=== PATIENT | male | born 1970 | race Caucasian/White ===

== ENCOUNTER 2016-09-03 13:42 | Inpatient (IN) | payer MEDICARE, OTHER ==
[2016-09-03] MEDS ORDERED: IPRATROPIUM-ALBUTEROL 3 ML NEB INHALATION STA (14:01)
--- NOTE | 2016-09-03 14:02 | ED ---
General Adult HPI - General Chief complaint: Chest Pain Stated complaint: SOB/Chest Pain Time Seen by Provider: 09/03/16 14:00 Source: patient, RN notes reviewed, old records reviewed Mode of arrival: wheelchair Limitations: no limitations - History of Present Illness Initial comments: This is a 46-year-old male ER for evaluation of chest pain source of breath. Patient has a significant medical history including asthma CHF, high blood pressure, high cholesterol, no recent cardiac evaluation. he patient coming in with increased shortness of breath no fever increased cough and congestion. Patient is mild chest pain as well. No nausea vomiting or abdominal pain. No recent travel history or sick contacts. - Related Data Home Medications Medication Instructions Recorded Confirmed Omeprazole [PriLOSEC] 20 mg PO AC-SUPPER 08/10/14 09/03/16 oxyCODONE HCL/ACETAMINOPHEN 1 tab PO Q6H PRN 05/14/15 09/03/16 [Percocet 10-325 mg] Budesonide/Formoterol Fumarate 2 puff INHALATION RT-BID 05/18/15 09/03/16 [Symbicort 160-4.5 Mcg Inhaler] Aspirin 81 mg PO DAILY 10/21/15 09/03/16 Ergocalciferol [Vitamin D2 50,000 unit PO FR 10/21/15 09/03/16 (DRISDOL)] Furosemide [Lasix] 160 mg PO BID 10/21/15 09/03/16 Ipratropium [place] [Atrovent Hfa] 2 puff INHALATION RT-QID 10/21/15 09/03/16 Ipratropium-Albuterol Nebulize 3 ml INHALATION RT-TID 10/21/15 09/03/16 [Duoneb 0.5 mg-3 mg/3 ml Soln] Metoprolol Tartrate [Lopressor] 100 mg PO BID 10/21/15 09/03/16 Polyethylene Glycol 3350 [Miralax] 8.5 gm PO DAILY PRN 10/21/15 09/03/16 Albuterol Sulfate [Proair Hfa] 2 puff INHALATION RT-Q6H 01/18/16 09/03/16 DULoxetine HCL [Cymbalta] 60 mg PO DAILY 01/18/16 09/03/16 INSULIN LISPRO (HumaLOG) [humaLOG] 35 unit SQ TID-W/MEALS 01/18/16 09/03/16 Insulin Glargine,Hum.rec.anlog 20 units SQ QAM 01/18/16 09/03/16 [[place]oujeo Solostar] Insulin Glargine,Hum.rec.anlog 100 units SQ HS 01/18/16 09/03/16 [Toujeo Solostar] [place]-3 Fatty Acids [[place]-3] 1,000 mg PO BID 01/18/16 09/03/16 diphenhydrAMINE [Benadryl] 50 mg PO HS PRN 01/18/16 09/03/16 Sacubitril/Valsartan [Entresto 49 1 tab PO BID 09/03/16 09/03/16 mg-51 mg Tablet] Previous Rx's Medication Instructions Recorded Atorvastatin [Lipitor] 80 mg PO HS #30 tab 05/17/15 Docusate [Colace] 100 mg PO TID #90 cap 01/23/16 Sennosides-Docusate Sodium 2 each PO HS #30 tab 01/23/16 [Senokot-S] Allergies Allergy/AdvReac Type Severity Reaction Status Date / Time gemfibrozil [From Lopid] Allergy Rash/Hives Verified 09/03/16 14:57 Review of Systems ROS Statement: Those systems with pertinent positive or pertinent negative responses have been documented in the HPI. ROS Other: All systems not noted in ROS Statement are negative. Past Medical History Past Medical History: Asthma, Coronary Artery Disease (CAD), Heart Failure, COPD , Diabetes Mellitus, GERD/Reflux, Hyperlipidemia, Hypertension, Sleep Apnea/CPAP /BIPAP Additional Past Medical History / Comment(s): Chronic back pain and neck pain, cardiomyopathy History of Any Multi-Drug Resistant Organisms: None Reported Past Surgical History: Adenoidectomy, AICD, Back Surgery, Cholecystectomy, Heart Catheterization, Tonsillectomy Additional Past Surgical History / Comment(s): EGD/colonoscopy- which was normal per pt., lumbar back surgery, laparoscopic cholecystectomy. 09-02-14 aicd implanted Past Anesthesia/Blood Transfusion Reactions: Motion Sickness Additional Past Anesthesia/Blood Transfusion Reaction / Comment(s): Pt states he did recieve a blood transfusion after his back surgery and had no reaction. Type of Cardiac Device: AICD Device Placement Date:: 2-5-15 Past Psychological History: ADD/ADHD Additional Psychological History / Comment(s): Pt lives with in a home. Pt is very independent. Smoking Status: Current some day smoker Past Alcohol Use History: None Reported Additional Past Alcohol Use History / Comment(s): Pt states that he quit drinking heavy 15 yrs ago. He states once in a great while he may have one drink. Past Drug Use History: Marijuana Additional Drug Use History / Comment(s): daily use - Past Family History Father Additional Family Medical History / Comment(s): Pt has not kept in close contact with his father for many yrs. Father was an alcoholic and pt believes he has from cirrhosis of the liver. Mother Additional Family Medical History / Comment(s): Mother is an alcoholic and in "poor health" General Exam Limitations: no limitations General appearance: alert, in no apparent distress, anxious Head exam: Present: atraumatic, normocephalic, normal inspection Eye exam: Present: normal appearance, PERRL, EOMI. Absent: scleral icterus, conjunctival injection, periorbital swelling ENT exam: Present: normal exam, mucous membranes moist Neck exam: Present: normal inspection. Absent: tenderness, meningismus, lymphadenopathy Respiratory exam: Present: normal lung sounds bilaterally. Absent: respiratory distress, wheezes, rales, rhonchi, stridor Cardiovascular Exam: Present: regular rate, normal rhythm, normal heart sounds. Absent: systolic murmur, diastolic murmur, rubs, gallop, clicks GI/Abdominal exam: Present: soft, normal bowel sounds. Absent: distended, tenderness, guarding, rebound, rigid Extremities exam: Present: normal inspection, full ROM, normal capillary refill. Absent: tenderness, pedal edema, joint swelling, calf tenderness Back exam: Present: normal inspection Neurological exam: Present: alert, oriented X3, CN II-XII intact Psychiatric exam: Present: normal affect, normal mood Skin exam: Present: warm, dry, intact, normal color. Absent: rash Course Vital Signs 09/03/16 09/03/16 09/03/16 13:46 14:28 14:36 Temperature 98.2 F Pulse Rate 109 H 103 H 102 H Respiratory 20 Rate Blood Pressure 129/84 O2 Sat by Pulse 94 L Oximetry - Reevaluation(s) Reevaluation #1: 09/03/16 15:54 Patient saw remains with chest pain Medical Decision Making - Medical Decision Making 46 male here for evaluation of chest pain shortness of breath, patient is in CHF with elevated troponin, patient has continued chest pain, EKG is negative for acute ST elevation, patient will be admitted for can at the coagulation, trending of troponin cardiac evaluation. - Lab Data Result diagrams: 09/03/16 14:10 09/03/16 14:10 Lab Results 09/03/16 09/03/16 09/03/16 Range/Units 14:10 14:10 14:10 WBC 15.0 H (3.8-10.6) k/uL RBC 5.02 (4.30-5.90) m/uL Hgb 14.5 (13.0-17.5) gm/dL Hct 44.8 (39.0-53.0) % MCV 89.1 (80.0-100.0) fL MCH 28.9 (25.0-35.0) pg MCHC 32.4 (31.0-37.0) g/dL RDW 12.2 (11.5-15.5) % Plt Count 255 (150-450) k/uL Neutrophils % 84 % Lymphocytes % 10 % Monocytes % 4 % Eosinophils % 1 % Basophils % 1 % Neutrophils # 12.6 H (1.3-7.7) k/uL Lymphocytes # 1.4 (1.0-4.8) k/uL Monocytes # 0.6 (0-1.0) k/uL Eosinophils # 0.2 (0-0.7) k/uL Basophils # 0.1 (0-0.2) k/uL PT (9.0-12.0) sec INR (<1.1) APTT (22.0-30.0) sec D-Dimer (<0.60) mg/L FEU Sodium 139 (137-145) mmol/L Potassium 4.7 (3.5-5.1) mmol/L Chloride 104 (98-107) mmol/L Carbon Dioxide 22 (22-30) mmol/L Anion Gap 13 mmol/L BUN 15 (9-20) mg/dL Creatinine 0.78 (0.66-1.25) mg/dL Est GFR (MDRD) Af Amer >60 (>60 ml/min/1.73 sqM) Est GFR (MDRD) Non-Af >60 (>60 ml/min/1.73 sqM) Glucose 236 H (74-99) mg/dL Calcium 9.3 (8.4-10.2) mg/dL Magnesium 1.9 (1.6-2.3) mg/dL Total Bilirubin 0.8 (0.2-1.3) mg/dL AST 32 (17-59) U/L ALT 48 (21-72) U/L Alkaline Phosphatase 98 (38-126) U/L Total Creatine Kinase 95 (55-170) U/L CK-MB (CK-2) 1.5 (0.0-2.4) ng/mL CK-MB (CK-2) Rel Index 1.6 Troponin I 0.061 H* (0.000-0.034) ng/mL NT-Pro-B Natriuret Pep pg/mL Total Protein 6.9 (6.3-8.2) g/dL Albumin 4.0 (3.5-5.0) g/dL Lipase 32 (23-300) U/L 09/03/16 09/03/16 Range/Units 14:10 14:10 WBC (3.8-10.6) k/uL RBC (4.30-5.90) m/uL Hgb (13.0-17.5) gm/dL Hct (39.0-53.0) % MCV (80.0-100.0) fL MCH (25.0-35.0) pg MCHC (31.0-37.0) g/dL RDW (11.5-15.5) % Plt Count (150-450) k/uL Neutrophils % % Lymphocytes % % Monocytes % % Eosinophils % % Basophils % % Neutrophils # (1.3-7.7) k/uL Lymphocytes # (1.0-4.8) k/uL Monocytes # (0-1.0) k/uL Eosinophils # (0-0.7) k/uL Basophils # (0-0.2) k/uL PT 10.2 (9.0-12.0) sec INR 1.0 (<1.1) APTT 23.4 (22.0-30.0) sec D-Dimer 1.06 H (<0.60) mg/L FEU Sodium (137-145) mmol/L Potassium (3.5-5.1) mmol/L Chloride (98-107) mmol/L Carbon Dioxide (22-30) mmol/L Anion Gap mmol/L BUN (9-20) mg/dL Creatinine (0.66-1.25) mg/dL Est GFR (MDRD) Af Amer (>60 ml/min/1.73 sqM) Est GFR (MDRD) Non-Af (>60 ml/min/1.73 sqM) Glucose (74-99) mg/dL Calcium (8.4-10.2) mg/dL Magnesium (1.6-2.3) mg/dL Total Bilirubin (0.2-1.3) mg/dL AST (17-59) U/L ALT (21-72) U/L Alkaline Phosphatase (38-126) U/L Total Creatine Kinase (55-170) U/L CK-MB (CK-2) (0.0-2.4) ng/mL CK-MB (CK-2) Rel Index Troponin I (0.000-0.034) ng/mL NT-Pro-B Natriuret Pep 1150 pg/mL Total Protein (6.3-8.2) g/dL Albumin (3.5-5.0) g/dL Lipase (23-300) U/L - Radiology Data Radiology results: report reviewed (Chest x-ray shows CHF, CT negative for PE), image reviewed Critical Care Time Critical Care Time: Yes Total Critical Care Time: 31 Disposition Clinical Impression: Asthma exacerbation in COPD, Acute non-ST segment elevation myocardial infarction (STEMI) following previous myocardial infarction, Elevated troponin, Systolic CHF, acute on chronic Disposition: ADMITTED IP TO THIS HOSP Condition: Serious Referrals: Hunter Romano MD [Primary Care Provider] - 1-2 days
[2016-09-03 14:54] LABS: Basophils # (A) 0.1 k/uL (0-0.2); Basophils % (A) 1 %; CH 29.4; CHCM 33.1; Eosinophils # (A) 0.2 k/uL (0-0.7); Eosinophils % (A) 1 %; HCT 44.8 % (39.0-53.0); HDW 2.58; HGB 14.5 gm/dL (13.0-17.5); Luc # (Auto) 0.13; Luc % (Auto) 1; Lymphocytes # (A) 1.4 k/uL (1.0-4.8); Lymphocytes % (A) 10 %; MCH 28.9 pg (25.0-35.0); MCHC 32.4 g/dL (31.0-37.0); MCV 89.1 fL (80.0-100.0); Mean Platelet Volume 7.9; Monocytes # (A) 0.6 k/uL (0-1.0); Monocytes % (A) 4 %; Neutrophils # (A) 12.6 k/uL (1.3-7.7); Neutrophils % (A) 84 %; RBC 5.02 m/uL (4.30-5.90); RDW 12.2 % (11.5-15.5); WBC (Perox) 14.88
--- NOTE | 2016-09-03 14:56 | XR ---
EXAMINATION TYPE: XR chest 2V DATE OF EXAM: 09/03/2016 2:52 PM COMPARISON: 10/16/1715 HISTORY: Post pacemaker placement FINDINGS: The lungs are clear and there is no pneumothorax, pleural effusion, or focal pneumonia. The heart is enlarged and there is a coarsened interstitium and pleural-based thickening which is sta ble. Single lead cardiac device noted with the lead overlying the region of the right ventricle. IMPRESSION: 1. Cardiac device with no evidence of pneumothorax. 2. Correlate for COPD and chronic interstitial lung disease.
[2016-09-03 15:01] LABS: ALT 48 U/L (21-72); AST 32 U/L (17-59); Alkaline Phosphatase 98 U/L (38-126); Anion Gap 13 mmol/L; Blood Urea Nitrogen 15 mg/dL (9-20); Calcium 9.3 mg/dL (8.4-10.2); Carbon Dioxide 22 mmol/L (22-30); Chloride 104 mmol/L (98-107); Glucose 236 mg/dL (74-99); Magnesium 1.9 mg/dL (1.6-2.3); Non-African American GFR(MDRD) >60 (>60 ml/min/1.73 sqM); Partial Thromboplastin Time 23.4 sec (22.0-30.0); Potassium 4.7 mmol/L (3.5-5.1); Prothrombin Time 10.2 sec (9.0-12.0); Sodium 139 mmol/L (137-145); Total Bilirubin 0.8 mg/dL (0.2-1.3); Total Protein 6.9 g/dL (6.3-8.2)
[2016-09-03 15:21] LABS: Creatine Kinase MB 1.5 ng/mL (0.0-2.4)
[2016-09-03 15:24] LABS: Troponin I 0.061 ng/mL (0.000-0.034)
[2016-09-03] MEDS ORDERED: RX INFO: IV CONTRAST WAS GIVEN 1 EACH MISC MISCELLANE PRN (15:29)
[2016-09-03] MEDS ORDERED: ASPIRIN 81 MG CHEW PO STA (15:50)
[2016-09-03] MEDS ORDERED: MORPHINE SULFATE 4 MG/ML SYRINGE IV PRN (15:50)
[2016-09-03] MEDS ORDERED: NITROGLYCERIN SL TABS 0.4 MG TAB SUBLINGUAL PRN (15:50)
[2016-09-03] MEDS ORDERED: HEPARIN SODIUM,PORCINE 5,000 UNIT/ML 1 ML VIAL IV ONE (15:50)
[2016-09-03] MEDS ORDERED: HEPARIN SODIUM,PORCINE/D5W PMX 25,000 UNIT in DEXTROSE/WATER 1 500ML.BAG IV SCH (16:00)
--- NOTE | 2016-09-03 16:37 | CT ---
EXAMINATION TYPE: CT angio chest DATE OF EXAM: 09/03/2016 4:24 PM COMPARISON: CTA chest May 13, 2015 HISTORY: Shortness of breath and chest pain. CT DLP: 629.00 mGycm. Automated Exposure Control for Dose Reduction was Utilized. CONTRAST: CTA scan of the thorax is performed with IV Contrast, patient injected with 75 mL of Omnipaque 350, p ulmonary embolism protocol. MIP Images are created on CT scanner and reviewed. FINDINGS: LUNGS: There is persistent small right pleural effusion slightly larger versus prior exam. There is s table tiny left pleural effusion. AP diameter elongation of the trachea is consistent with underlying emphysematous change. Mild emphysematous change is present. Some areas of groundglass opacity throug hout right lung may reflect focal edema and/or infiltrates. No suspicious parenchymal nodule or mass is present bilaterally. No pneumothorax is seen bilaterally MEDIASTINUM: There is satisfactory enhancement of the pulmonary artery and its branches, there is no CT evidence for pulmonary embolism. There is abnormal prevascular lymph node redemonstrated measurin g 1.6 x 1.2 cm on current study image 48 felt stable from prior. Abnormal subcarinal lymph node is fe lt stable measuring 2.4 x 1.5 cm. Stable prominent right hilar lymph node is redemonstrated.. No si gnificant effusion is seen. Heart size is upper limits of normal with single lead pacemaker/AICD rede monstrated. There is moderate left atrial dilatation redemonstrated. There is moderate to severe left ventricular dilatation redemonstrated. OTHER: New vague areas of low-attenuation in the spleen are identified of uncertain etiology. These are new from CT abdomen pelvis December 2015. Vague bilateral renal lesions that exam were present. IMPRESSION: 1. No CT evidence for pulmonary embolism. 2. Persistent small bilateral pleural effusions. Persistent left atrial ventricular dilatation. Consi omid chronic CHF exacerbation. Mild underlying emphysematous change is felt present. 3. New hypodense splenic lesions raise concern for infarct or ischemic change given liver and renal f indings on prior studies.
[2016-09-03 17:09] LABS: Glucose,Whole Blood 229 mg/dL (75-99)
[2016-09-03] MEDS ORDERED: DOCUSATE 100 MG CAP PO PRN (17:42)
[2016-09-03] MEDS ORDERED: POLYETHYLENE GLYCOL 3350 17 GM POWD.PACK PO PRN (17:42)
[2016-09-03] MEDS ORDERED: IPRATROPIUM-ALBUTEROL 3 ML NEB INHALATION PRN (18:02)
[2016-09-03] MEDS: SYMBICORT 160-4.5 MCG INHALER INHALATION SCH (19:59)
[2016-09-03] MEDS: IPRATROPIUM-ALBUTEROL 3 ML NEB INHALATION SCH (19:59)
[2016-09-03] MEDS: SACUBITRIL/VALSARTAN 49 MG-51 MG TABLET PO SCH (20:20)
[2016-09-03] MEDS: HYDROmorphone 1 MG/ML 1 ML SYRINGE IVP PRN (20:21)
[2016-09-03] MEDS: METOPROLOL TARTRATE 50 MG TAB PO SCH (20:21)
[2016-09-03] MEDS: FUROSEMIDE 10 MG/ML 10 ML VIAL IV SCH (20:21)
[2016-09-03] MEDS: SENNOSIDES-DOCUSATE SODIUM 1 EACH TAB PO SCH (20:30)
[2016-09-03] MEDS ORDERED: FUROSEMIDE 80 MG TAB PO SCH (21:00)
[2016-09-03] MEDS ORDERED: NON-FORMULARY DRUG (Omega-3 Fatty Acids [Omega-3] 1,000 MG) PO SCH (21:00)
[2016-09-03 21:04] LABS: Glucose,Whole Blood 258 mg/dL (75-99)
[2016-09-03] MEDS: INSULIN LISPRO (humaLOG) 300 UNIT/3 ML VIAL SQ SCH (21:20)
[2016-09-03] MEDS: INSULIN GLARGINE 100 UNIT/ML 10 ML VIAL SQ SCH (21:20)
[2016-09-03] MEDS: ALPRAZolam 0.25 MG TAB PO PRN (21:21)
[2016-09-03] MEDS: HEPARIN SODIUM,PORCINE 5,000 UNIT/ML 1 ML VIAL IV PRN (22:08)
[2016-09-03 22:14] LABS: Creatine Kinase MB 1.4 ng/mL (0.0-2.4)
[2016-09-03 22:17] LABS: Troponin I 0.066 ng/mL (0.000-0.034)
[2016-09-03 23:02] LABS: Hemoglobin A1C 9.9 % (4.2-6.1)
--- NOTE | 2016-09-03 23:09 | HP ---
DATE OF ADMISSION: CHIEF COMPLAINT: Chest pain and shortness of breath. HISTORY OF PRESENT ILLNESS: Mr. Ezequiel Haynes is a 46-year-old with a known history of hypertension, diabetes, type 2, insulin-dependent, CHF, unknown ejection fraction, hyperlipidemia and morbid obesity. He came to the hospital with complaints of chest pain, mainly in the left upper chest; pressure-like sensation. No associated radiation. Patient does have associated shortness of breath along with pain. There are no aggravating or relieving factors. Patient apparently had this chest pain today morning, and patient had been having constant pain for more than 4 hours. Patient came to the hospital for further evaluation. Patient denied any history of angioplasty stent placement in prior history. Patient does have a history of prior heart catheterization and AICD placement. Patient otherwise denied any complaints of fever or chills. No nausea, vomiting, abdominal pain. No recent illnesses or sick contacts at home. No recent travel. REVIEW OF SYSTEMS: CONSTITUTIONAL: No fever. No chills. RESPIRATORY: No cough or sputum production. Patient does have shortness of breath. CARDIOVASCULAR: Patient does have chest tightness and shortness of breath. No worsening leg swelling. ABDOMEN: No nausea, vomiting or abdominal pain. No diarrhea or constipation. GENITOURINARY: No dysuria or hematuria. ENDOCRINE: Negative. PSYCHIATRIC: Negative. SKIN: Negative. All of 14-point review of systems negative except as above. Past medical history includes: 1. Asthma. 2. Coronary artery disease. 3. CHF; ejection fraction unknown. 4. COPD, not on home oxygen. 5. Diabetes, type 2, insulin-dependent. 6. GERD. 7. Hyperlipidemia. 8. Hypertension. 9. Obstructive sleep apnea. 10. Morbid obesity. 11. Chronic back pain and neck pain. 12. Cardiomyopathy, status post AICD placement. PAST SURGICAL HISTORY: 1. Adenoidectomy. 2. AICD placement. 3. Back surgery. 4. Cholecystectomy. 5. Cardiac catheterization. 6. Tonsillectomy. 7. EGD. 8. Colonoscopy. 9. Laparoscopic cholecystectomy. PSYCHOSOCIAL HISTORY: ADD/ADHD SOCIAL HISTORY: Patient lives with his at home. Very independent. Currently he is a someday smoker; smokes about 5 to 6 cigarettes in a month. Patient quit drinking 15 years ago. Patient was a heavy drinker previously. Patient does use marijuana daily. FAMILY HISTORY: Father was alcoholic. He from liver cirrhosis. Mother is an alcoholic and is in poor health ( ) HOME MEDICATIONS: 1. Omeprazole. 2. Trion 10. 3. Symbicort. 4. Aspirin. 5. Lasix. 6. Ipratropium bromide. 7. DuoNeb. 8. Metoprolol tartrate. 9. Polyethylene glycol. ( ) 10. Cymbalta. 11. Insulin glargine and insulin Lispro. 12. [place]-3 fatty acids. 13. Benadryl. 14. Sacubitril/Valsartan - Entresto. 15. Lipitor. 16. Colace. 17. Senokot-S. PHYSICAL EXAMINATION: A 46-year-old male lying in the bed. Awake, alert, oriented x3. Appears to be in no distress. VITALS: Blood pressure is 127/81, pulse 107, respirations 16, temperature afebrile, pulse ox 95% on 2 L. nasal cannula. HEENT: Atraumatic, normocephalic. Neck is supple. No JVD. CVS EXAM: S1, S2 heard. No murmurs. No gallop. LUNGS: Bilateral diminished air entry. No wheezing. Non-labored breathing. ABDOMEN: Soft, nontender. Bowel sounds present. Obese. CREDIT MANAGER: Awake, alert, oriented x3. No focal neurologic deficits. EXTREMITIES: No edema. Pulses palpable bilaterally. No clubbing. No cyanosis. PSYCHIATRIC: Cooperative. LABORATORY DATA: WBC 15.0, hemoglobin 14.5, platelets 255. INR 1.0. D-dimer is 1.06. Sodium 139, potassium 4.7, chloride 104. Bicarb is 22. BUN 15, creatinine 0.78. Liver enzymes within normal limits. NT-proBNP is 1150. Troponin 0.061. Blood sugar is uncontrolled; blood sugar was 236 on admission. Chest x-ray: Cardiac device with no evidence of pneumothorax. Correlation for COPD and chronic interstitial lung changes. EKG showed sinus tachycardia. CT chest shows no evidence of PE; persistent small bilateral pleural effusions; persistent left atrial and ventricular dilatation. Consider chronic CHF exacerbation. Mild underlying emphysematous changes seem to be present. New hypodense splenic lesions raise concern for infarct or ischemic changes, given liver and renal findings on prior studies. IMPRESSION: 1. Chest pain with elevated troponin level; possible cyv-LO-sngrdamu myocardial infarction. Patient will be continued on heparin drip. 2. Acute on chronic congestive heart failure with systolic dysfunction. 3. Chronic obstructive pulmonary disease exacerbation. 4. Leukocytosis. 5. Elevated D-dimer. No evidence of pulmonary embolism on CT chest. 6. Hyperglycemia with uncontrolled diabetes, type 2. Will check hemoglobin A1C. 7. History of coronary artery disease. 8. Cardiomyopathy, status post automatic implantable cardioverter defibrillator placement. 9. 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 10. Obstructive sleep apnea, on CPAP at home. 11. Hypertension. 12. Hyperlipidemia. 13. Gastroesophageal reflux disease. 14. Nicotine addiction; currently trying to quit smoking. 15. Marijuana use on a daily basis. 16. Deep venous thrombosis prophylaxis. Patient is already on heparin drip. DISCUSSION AND PLAN: Patient will be continued on heparin drip and continue with IV diuresis with Lasix 80 mg b.i.d. Continue with the home medications and insulin dosing. Cardiology has been consulted. Will continue telemetry monitoring and serial EKGs and troponins. Further recommendations based on clinical course. Prognosis guarded.
[2016-09-04] MEDS: HYDROmorphone 1 MG/ML 1 ML SYRINGE IVP PRN ×5 (00:10→21:16)
[2016-09-04 01:56] LABS: Appearance,Urine Clear (Clear); Bilirubin,Urine Negative (Negative); Glucose,Urine (UA) 3+ (Negative); Ketones,Urine Negative (Negative); Leukocyte Esterase,Urine Negative (Negative); Nitrite,Urine Negative (Negative); Protein,Urine Negative (Negative); UA Billing (MACRO vs. MICRO) CHEM; Urobilinogen,Urine <2.0 mg/dL (<2.0)
[2016-09-04 02:02] LABS: Creatine Kinase MB 1.2 ng/mL (0.0-2.4)
[2016-09-04 02:03] LABS: Troponin I 0.068 ng/mL (0.000-0.034)
[2016-09-04] MEDS: ALPRAZolam 0.25 MG TAB PO PRN ×3 (05:23→21:16)
[2016-09-04 05:52] LABS: Basophils # (A) 0.1 k/uL (0-0.2); Basophils % (A) 1 %; CH 29.2; CHCM 32.4; Eosinophils # (A) 0.4 k/uL (0-0.7); Eosinophils % (A) 4 %; HDW 2.51; HGB 14.3 gm/dL (13.0-17.5); Luc # (Auto) 0.21; Luc % (Auto) 2; Lymphocytes # (A) 3.2 k/uL (1.0-4.8); Lymphocytes % (A) 33 %; MCH 29.5 pg (25.0-35.0); MCHC 32.6 g/dL (31.0-37.0); MCV 90.5 fL (80.0-100.0); Mean Platelet Volume 7.6; Monocytes # (A) 0.6 k/uL (0-1.0); Monocytes % (A) 6 %; Neutrophils # (A) 5.2 k/uL (1.3-7.7); Neutrophils % (A) 54 %; RBC 4.86 m/uL (4.30-5.90); RDW 12.3 % (11.5-15.5); WBC 9.7 k/uL (3.8-10.6)
[2016-09-04 06:02] LABS: Anion Gap 13 mmol/L; Blood Urea Nitrogen 16 mg/dL (9-20); Calcium 9.2 mg/dL (8.4-10.2); Carbon Dioxide 25 mmol/L (22-30); Chloride 102 mmol/L (98-107); Cholesterol 223 mg/dL (<200); Glucose 149 mg/dL (74-99); HDL Cholesterol 38 mg/dL (40-60); Non-African American GFR(MDRD) >60 (>60 ml/min/1.73 sqM); Potassium 4.1 mmol/L (3.5-5.1); Sodium 140 mmol/L (137-145); Triglycerides 246 mg/dL (<150)
[2016-09-04 06:30] LABS: Glucose,Whole Blood 161 mg/dL (75-99)
[2016-09-04] MEDS: HEPARIN SODIUM,PORCINE 5,000 UNIT/ML 1 ML VIAL IV PRN (06:39)
[2016-09-04] MEDS: INSULIN LISPRO (humaLOG) 300 UNIT/3 ML VIAL SQ SCH ×7 (06:39→21:16)
[2016-09-04] MEDS: oxyCODONE-APAP 10-325MG 1 EACH TAB PO PRN (06:54)
[2016-09-04] MEDS: IPRATROPIUM-ALBUTEROL 3 ML NEB INHALATION SCH ×4 (08:17→20:18)
[2016-09-04] MEDS: SYMBICORT 160-4.5 MCG INHALER INHALATION SCH ×2 (08:17→20:18)
[2016-09-04] MEDS: FUROSEMIDE 10 MG/ML 10 ML VIAL IV SCH ×2 (09:10→21:15)
--- NOTE | 2016-09-04 10:54 | CONS ---
DATE OF CONSULTATION: CHIEF COMPLAINT: Shortness of breath. Ezequiel is a 46-year-old gentleman with history of dilated cardiomyopathy, chronic systolic heart failure, hypertension, dyslipidemia, diabetes, morbid obesity, status post AICD, comes to the hospital complaining of shortness of breath. He was becoming short of breath over the last 2 days. It was mild to moderate intensity, came on at rest, got worse with exertion and relieved with rest. He also had leg edema. There is no history of paroxysmal nocturnal dyspnea or orthopnea. He also complained of vague chest pain with this. Patient comes in, had elevated BNP and troponin that was elevated at 0.06 but remained the same, 0.06, 0.06. 0.06, which is inconsistent with a diagnosis of acute myocardial infarction. The patient had prior cardiac catheterizations that did not reveal significant obstructive CAD. An EKG on him shows sinus rhythm with inferolateral ST-T wave changes. At the time of my evaluation, patient is pain free, hemodynamically stable and in no apparent distress. He is on IV Lasix and is responding. Past medical history is significant for cardiomyopathy with congestive heart failure, patient is status post AICD, insulin-requiring diabetes, GERD, COPD. MEDICATIONS: He is currently on Entresto, Vitamin D2, Lopressor, Percocet, Benadryl, Senokot, MiraLAX, Prilosec, [place] 3, DuoNeb, ipratropium, insulin, Lasix, Cymbalta, atorvastatin, aspirin. ALLERGIES: Allergic to LOPID. Family history is negative for premature coronary artery disease. Social history is negative for smoking, EtOH use or drug abuse. REVIEW OF SYSTEMS: HEENT: Unremarkable. CARDIAC: As described above. RESPIRATORY: As described above. GI: Negative. GENITOURINARY: Negative. ALLERGY/IMMUNOLOGY: Negative. SKIN: Negative. MUSCULOSKELETAL: Negative. ENDOCRINE: Negative. HEMATOLOGIC: Negative. DERM: Negative. CONSTITUTIONAL: Negative. ONCOLOGICAL: Negative. The rest of the system review is not relevant. On exam, comfortable at rest. Vital signs are stable. There is no jugular venous distention. Chest exam reveals good air entry bilaterally. Heart exam reveals first and second heart sounds. No gallop. No murmur. Abdomen is soft, nontender. Exam of extremities reveals bilateral 1+ pitting edema. A CT chest was negative for pulmonary embolism. EKG showed nonspecific ST-T wave changes. Labs have been reviewed. Hemoglobin is 14.3, platelet count is 258. Potassium is 4.1. Creatinine is 0.9. Tropes are elevated, but have remained elevated. LDL cholesterol is 136. ASSESSMENT: 1. Acute exacerbation of chronic systolic heart failure secondary to noncompliance with therapy. 2. Status post AICD. 3. Insulin-requiring diabetes. 4. Mild troponin elevation of unclear clinical significance. 5. History of hypertension. 6. Diabetes. PLAN: I agree with the IV diuretics. I expect him to respond over the next 24 hours. We should be able to switch to p.o. Lasix tomorrow and discharge him home. I will obtain a 2-D echo on him to document his LV function. I am going to review his outpatient records.
[2016-09-04] MEDS: METOPROLOL TARTRATE 50 MG TAB PO SCH ×2 (11:05→21:16)
[2016-09-04] MEDS: DULoxetine HCL 60 MG CAPSULE.DR PO SCH (11:05)
[2016-09-04] MEDS: SACUBITRIL/VALSARTAN 49 MG-51 MG TABLET PO SCH ×2 (11:06→21:16)
--- NOTE | 2016-09-04 11:18 | ECHOF ---
Referral Reason:lv function MEASUREMENTS -------- HEIGHT: 175.3 cm WEIGHT: 129.7 kg BP: 111/71 RVIDd: 3.6 cm (< 3.3) IVSd: 1.2 cm (0.6 - 1.1) LVIDd: 6.0 cm (3.9 - 5.3) LVPWd: 1.2 cm (0.6 - 1.1) IVSs: 1.9 cm LVIDs: 5.3 cm LVPWs: 1.6 cm LA Diam: 4.2 cm (2.7 - 3.8) LAESV Index (A-L): 32.31 ml/m Ao Diam: 3.1 cm (2.0 - 3.7) AV Cusp: 1.9 cm (1.5 - 2.6) LA Diam: 4.5 cm (2.7 - 3.8) MV EXCURSION: 14.013 mm (> 18.000) MV EF SLOPE: 65 mm/s (70 - 150) EPSS: 2.3 cm MV E Leroy: 1.02 m/s MV DecT: 79 ms MV A Leroy: 0.50 m/s MV E/A Ratio: 2.03 FINDINGS -------- Undetermined rhythm. Pacerwire seen in RV and RA. This was a technically adequate study. The left ventricle is mildly dilated. There is borderline concentric left ventricular hypertrophy. Overall left ventricular systolic function is severely impaired with, an EF < 20%. The right ventricle is mildly enlarged. LA is midly dilated 29-33ml/m2. The right atrium is normal in size. 1.5mg of Definity was utilized for enhancement of images The aortic valve is trileaflet and appears structurally normal. The mitral valve leaflets are mildly thickened. Mild mitral annular calcification present. Trace tricuspid regurgitation present. Pulmonic valve appears structurally normal. The aortic root size is normal. Normal inferior vena cava with normal inspiratory collapse consistent with estimated right atrial pressure of 5 mmHg. Echo free space may represent effusion or a pericardial fat pad. CONCLUSIONS -------- 1. Undetermined rhythm. 2. 1.5mg of Definity was utilized for enhancement of images 3. The aortic valve is trileaflet and appears structurally normal. 4. The mitral valve leaflets are mildly thickened. 5. Mild mitral annular calcification present. 6. Trace tricuspid regurgitation present. 7. Pulmonic valve appears structurally normal. 8. The aortic root size is normal. 9. Echo free space may represent effusion or a pericardial fat pad. 10. Pacerwire seen in RV and RA. 11. This was a technically adequate study. 12. The left ventricle is mildly dilated. 13. There is borderline concentric left ventricular hypertrophy. 14. Overall left ventricular systolic function is severely impaired with, an EF < 20%. 15. The right ventricle is mildly enlarged. 16. LA is midly dilated 29-33ml/m2. 17. The right atrium is normal in size. APPLICATIONS ENGINEER: Eliud Rosario RDCS
[2016-09-04 11:30] VITALS: BMI 42.3
[2016-09-04] MEDS: ATORVASTATIN 80 MG TAB PO SCH (11:40)
[2016-09-04] MEDS: ASPIRIN 325 MG TAB PO SCH (11:41)
[2016-09-04 11:59] LABS: Glucose,Whole Blood 191 mg/dL (75-99)
[2016-09-04] MEDS: INSULIN GLARGINE 100 UNIT/ML 10 ML VIAL SQ SCH ×3 (12:17→23:22)
[2016-09-04] MEDS: HEPARIN SODIUM,PORCINE 5,000 UNIT/ML 1 ML VIAL SQ SCH ×2 (15:37→23:22)
--- NOTE | 2016-09-04 16:21 | P.PN ---
Subjective Principal diagnosis: Difficulty breathing 46-year-old gentleman with history of dilated cardiomyopathy chronic systolic heart failure comes in to the hospital with progressive worsening of dyspnea over the last 2 days. Patient states that he has been compliant with his Lasix dose however on repeat questioning states that he has ran out of his Lasix pills a few days prior to admission. Patient also was noted to have some atypical chest pressure initially was noted to have an elevated troponin patient was started on IV heparin. Patient does state to have PND and orthopnea prior to presentation however has improved significantly since admission. Patient was started on Lasix 80 mg IV twice a day. Patient currently denies having any difficulty breathing, chest pain, nausea, vomiting, diarrhea. Objective - Vital Signs Vital signs: Vital Signs Temp 97.3 F L 09/04/16 15:29 Pulse 92 09/04/16 15:51 Resp 16 09/04/16 15:29 BP 117/67 09/04/16 15:29 Pulse Ox 95 09/04/16 15:29 Intake & Output 09/03/16 09/04/16 09/04/16 18:59 06:59 18:59 Intake Total 240 748.258 180 Output Total 350 Balance 240 398.258 180 Weight 129.8 kg 129.8 kg Intake: IV 400 0.9 200 Heparin Sodium,Porcine/ 200 D5w Pmx 25,000 unit In Dextrose/Water 1 500ml. bag @ 7.6 UNITS/KG/HR 19. 99 mls/hr IV .Q24H LAN Rx #:[id number] Intake, IV Titration 348.258 Amount Heparin Sodium,Porcine/ 348.258 D5w Pmx 25,000 unit In Dextrose/Water 1 500ml. bag @ 7.6 UNITS/KG/HR 19. 99 mls/hr IV .Q24H LAN Rx #:[id number] Oral 240 180 Output: Urine 350 Other: Voiding Method Toilet Toilet # Voids 0 1 0 # Bowel Movements 0 - Exam Physical exam Gen. appearance oriented 3 in no distress Neck is supple no JVD Lungs good air entry trace crackles at the bases Heart S1-S2 heard regular rate and rhythm no murmurs appreciated S3 is not appreciated Abdomen is soft nontender no organomegaly bowel sounds are intact Neurologically cranial nerves II-12 grossly intact no focal motor or sensory deficits noted Skin no abnormalities appreciated - Labs CBC & Chem 7: 09/04/16 05:29 09/04/16 05:29 Labs: Abnormal Lab Results - Last 24 Hours (Table) 09/03/16 09/03/16 09/03/16 Range/Units 17:04 21:02 21:12 Glucose (74-99) mg/dL POC Glucose (mg/dL) 229 H 258 H (75-99) mg/dL Hemoglobin A1c (4.2-6.1) % Troponin I 0.066 H* (0.000-0.034) ng/mL Triglycerides (<150) mg/dL Cholesterol (<200) mg/dL LDL Cholesterol, Calc (0-99) mg/dL HDL Cholesterol (40-60) mg/dL Urine Glucose (UA) (Negative) 09/03/16 09/04/16 09/04/16 Range/Units 21:12 01:18 01:48 Glucose (74-99) mg/dL POC Glucose (mg/dL) (75-99) mg/dL Hemoglobin A1c 9.9 H (4.2-6.1) % Troponin I 0.068 H* (0.000-0.034) ng/mL Triglycerides (<150) mg/dL Cholesterol (<200) mg/dL LDL Cholesterol, Calc (0-99) mg/dL HDL Cholesterol (40-60) mg/dL Urine Glucose (UA) 3+ H (Negative) 09/04/16 09/04/16 09/04/16 Range/Units 05:29 06:29 11:53 Glucose 149 H (74-99) mg/dL POC Glucose (mg/dL) 161 H 191 H (75-99) mg/dL Hemoglobin A1c (4.2-6.1) % Troponin I (0.000-0.034) ng/mL Triglycerides 246 H (<150) mg/dL Cholesterol 223 H (<200) mg/dL LDL Cholesterol, Calc 136 H (0-99) mg/dL HDL Cholesterol 38 L (40-60) mg/dL Urine Glucose (UA) (Negative) Assessment and Plan Plan: #1 acute exacerbation of systolic heart failure secondary to noncompliance #2 diabetes mellitus #3 #4 history of hypertension #5 clinical sleep apnea #6 COPD #7 dilated cardiomyopathy Plan Continue IV diuretics for another 24 hours. Patient was admitted by cardiology today. Continue daily weights. A repeat electrolyte panel will be obtained in the morning. Patient can likely be discharged in the next 24 hours. Continue all other medications. Patient's glucose levels are appropriate. Encourage ambulation
[2016-09-04 17:02] LABS: Glucose,Whole Blood 114 mg/dL (75-99)
[2016-09-04] MEDS: PANTOPRAZOLE 40 MG TABLET PO SCH (17:31)
[2016-09-04 21:06] LABS: Glucose,Whole Blood 131 mg/dL (75-99)
[2016-09-04] MEDS: SENNOSIDES-DOCUSATE SODIUM 1 EACH TAB PO SCH (21:25)
[2016-09-05] MEDS: HYDROmorphone 1 MG/ML 1 ML SYRINGE IVP PRN ×4 (00:24→15:52)
[2016-09-05 02:11] LABS: Glucose,Whole Blood 286 mg/dL (75-99)
[2016-09-05 06:21] LABS: Glucose,Whole Blood 270 mg/dL (75-99)
[2016-09-05 07:00] LABS: Basophils # (A) 0.1 k/uL (0-0.2); Basophils % (A) 1 %; CH 29.1; CHCM 32.2; Eosinophils # (A) 0.5 k/uL (0-0.7); Eosinophils % (A) 5 %; HCT 41.9 % (39.0-53.0); HDW 2.52; HGB 13.5 gm/dL (13.0-17.5); Luc # (Auto) 0.18; Luc % (Auto) 2; Lymphocytes # (A) 2.4 k/uL (1.0-4.8); Lymphocytes % (A) 28 %; MCH 29.2 pg (25.0-35.0); MCHC 32.2 g/dL (31.0-37.0); MCV 90.7 fL (80.0-100.0); Mean Platelet Volume 7.6; Monocytes # (A) 0.4 k/uL (0-1.0); Monocytes % (A) 5 %; Neutrophils # (A) 5.2 k/uL (1.3-7.7); Neutrophils % (A) 59 %; RBC 4.63 m/uL (4.30-5.90); RDW 12.3 % (11.5-15.5); WBC 8.7 k/uL (3.8-10.6); WBC (Perox) 8.92
[2016-09-05 07:27] LABS: ALT 42 U/L (21-72); AST 18 U/L (17-59); Alkaline Phosphatase 90 U/L (38-126); Anion Gap 10 mmol/L; Blood Urea Nitrogen 19 mg/dL (9-20); Calcium 8.7 mg/dL (8.4-10.2); Carbon Dioxide 26 mmol/L (22-30); Chloride 100 mmol/L (98-107); Glucose 287 mg/dL (74-99); Non-African American GFR(MDRD) >60 (>60 ml/min/1.73 sqM); Sodium 136 mmol/L (137-145); Total Bilirubin 0.4 mg/dL (0.2-1.3)
[2016-09-05] MEDS: INSULIN GLARGINE 100 UNIT/ML 10 ML VIAL SQ SCH (07:32)
[2016-09-05] MEDS: INSULIN LISPRO (humaLOG) 300 UNIT/3 ML VIAL SQ SCH ×6 (07:32→17:58)
[2016-09-05] MEDS: IPRATROPIUM-ALBUTEROL 3 ML NEB INHALATION SCH ×2 (08:05→12:51)
[2016-09-05] MEDS: SYMBICORT 160-4.5 MCG INHALER INHALATION SCH (08:05)
[2016-09-05] MEDS: ASPIRIN 325 MG TAB PO SCH (09:24)
[2016-09-05] MEDS: HEPARIN SODIUM,PORCINE 5,000 UNIT/ML 1 ML VIAL SQ SCH ×2 (09:24→15:52)
[2016-09-05] MEDS: ALPRAZolam 0.25 MG TAB PO PRN ×2 (09:24→18:12)
[2016-09-05] MEDS: SACUBITRIL/VALSARTAN 49 MG-51 MG TABLET PO SCH (09:25)
[2016-09-05] MEDS: FUROSEMIDE 10 MG/ML 10 ML VIAL IV SCH (09:25)
[2016-09-05] MEDS: METOPROLOL TARTRATE 50 MG TAB PO SCH (09:25)
[2016-09-05] MEDS: DULoxetine HCL 60 MG CAPSULE.DR PO SCH (09:25)
[2016-09-05] MEDS: ATORVASTATIN 80 MG TAB PO SCH (09:25)
[2016-09-05] MEDS: oxyCODONE-APAP 10-325MG 1 EACH TAB PO PRN (09:47)
[2016-09-05 11:11] VITALS: TEMP 97.4
[2016-09-05 11:30] VITALS: RESP 16
[2016-09-05 12:01] LABS: Glucose,Whole Blood 173 mg/dL (75-99)
--- NOTE | 2016-09-05 14:06 | PN ---
Patient was admitted to hospital with acute exacerbation of chronic heart failure due to noncompliance with therapy. Echocardiogram shows severe LV dysfunction. On exam today he is comfortable at rest. Vital signs are stable. There is no jugular venous distention. Chest exam reveals good air entry bilaterally. Heart exam reveals first and second heart sounds. No gallop. Exam of the extremities did not reveal any edema. Peripheral pulses are felt. The patient is on aspirin, Lipitor, Lasix, insulin, patient should go home on a beta leah in the form of metoprolol and an tyler inhibitor. He will be followed up in our office with Dr. Padilla.
[2016-09-05 15:09] LABS: Glucose,Whole Blood 55 mg/dL (75-99)
[2016-09-05 15:09] LABS: Glucose,Whole Blood 62 mg/dL (75-99)
[2016-09-05 15:09] LABS: Glucose,Whole Blood 91 mg/dL (75-99)
[2016-09-05 15:40] VITALS: BP 112/67; PULSE 89
[2016-09-05] MEDS ORDERED: FUROSEMIDE 20 MG TAB PO SCH (16:00)
[2016-09-05 16:14] LABS: Glucose,Whole Blood 100 mg/dL (75-99)
--- NOTE | 2016-09-05 17:00 | P.DS ---
Providers Date of admission: 09/03/16 15:51 Attending physician: Buck Johnson Primary care physician: Hunter Romano [facility] Course: 46-year-old gentleman with history of dilated cardiomyopathy chronic systolic heart failure comes in to the hospital with progressive worsening of dyspnea over the last 2 days. Patient states that he has been compliant with his Lasix dose however on repeat questioning states that he has ran out of his Lasix pills a few days prior to admission. Patient also was noted to have some atypical chest pressure initially was noted to have an elevated troponin patient was started on IV heparin. Patient does state to have PND and orthopnea prior to presentation however has improved significantly since admission. Patient was started on Lasix 80 mg IV twice a day. Patient currently denies having any difficulty breathing, chest pain, nausea, vomiting, diarrhea. Discharge patient was asymptomatic. There was episodes of asymptomatic hypoglycemia. Patient was tolerating diet and glucose levels improved appropriately. - Exam Physical exam Gen. appearance oriented 3 in no distress Neck is supple no JVD Lungs good air entry trace crackles at the bases Heart S1-S2 heard regular rate and rhythm no murmurs appreciated S3 is not appreciated Abdomen is soft nontender no organomegaly bowel sounds are intact Neurologically cranial nerves II-12 grossly intact no focal motor or sensory deficits noted Skin no abnormalities appreciated - Labs CBC & Chem 7: 09/04/16 05:29 Assessment and Plan Plan: #1 acute exacerbation of systolic heart failure secondary to noncompliance #2 diabetes mellitus #3 #4 history of hypertension #5 clinical sleep apnea #6 COPD #7 dilated cardiomyopathy Plan Patient is encouraged to continue Lasix by mouth 80 mg twice a day. And entresto beta leah. 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 Patient Condition at Discharge: Serious Plan - Discharge Summary New Discharge Prescriptions: Atorvastatin [Lipitor] 80 mg PO DAILY #30 tab Furosemide [Lasix] 80 mg PO BID #60 tab Sacubitril/Valsartan [Entresto 49 mg-51 mg Tablet] 1 tab PO BID #60 tablet Discharge Medication List Omeprazole [PriLOSEC] 20 mg PO AC-SUPPER 08/10/14 [History] oxyCODONE HCL/ACETAMINOPHEN [Percocet 10-325 mg] 1 tab PO Q6H PRN 05/14/15 [ History] Budesonide/Formoterol Fumarate [Symbicort 160-4.5 Mcg Inhaler] 2 puff INHALATION RT-BID 05/18/15 [History] Aspirin 81 mg PO DAILY 10/21/15 [History] Ergocalciferol [Vitamin D2 (DRISDOL)] 50,000 unit PO FR 10/21/15 [History] Ipratropium Wendell [Atrovent Hfa] 2 puff INHALATION RT-QID 10/21/15 [History] Ipratropium-Albuterol Nebulize [Duoneb 0.5 mg-3 mg/3 ml Soln] 3 ml INHALATION RT -TID 10/21/15 [History] Metoprolol Tartrate [Lopressor] 100 mg PO BID 10/21/15 [History] Polyethylene Glycol 3350 [Miralax] 8.5 gm PO DAILY PRN 10/21/15 [History] Albuterol Sulfate [Proair Hfa] 2 puff INHALATION RT-Q6H 01/18/16 [History] DULoxetine HCL [Cymbalta] 60 mg PO DAILY 01/18/16 [History] INSULIN LISPRO (HumaLOG) [humaLOG] 35 unit SQ TID-W/MEALS 01/18/16 [History] Insulin Glargine,Hum.rec.anlog [Toujeo Solostar] 20 units SQ QAM 01/18/16 [ History] Insulin Glargine,Hum.rec.anlog [Toujeo Solostar] 100 units SQ HS 01/18/16 [ History] [place]ank-3 Fatty Acids [Burbank-3] 1,000 mg PO BID 01/18/16 [History] diphenhydrAMINE [Benadryl] 50 mg PO HS PRN 01/18/16 [History] Docusate [Colace] 100 mg PO TID #90 cap 01/23/16 [Rx] Sennosides-Docusate Sodium [Senokot-S] 2 each PO HS #30 tab 01/23/16 [Rx] Atorvastatin [Lipitor] 80 mg PO DAILY #30 tab 09/05/16 [Rx] Furosemide [Lasix] 80 mg PO BID #60 tab 09/05/16 [Rx] Insulin Glargine [Lantus] 20 unit SQ 0700 vial 09/05/16 [Rx] Insulin Glargine [Lantus] 100 unit SQ HS vial 09/05/16 [Rx] Sacubitril/Valsartan [Entresto 49 mg-51 mg Tablet] 1 tab PO BID #60 tablet 09/05 [Rx] Follow up Appointment(s)/Referral(s): Hunter Romano MD [Primary Care Provider] - 1-2 days Cliff Abbasi MD [STAFF PHYSICIAN] - 09/13/16 2:45 pm Patient Instructions/Handouts: Heart Failure (DC), Chest Pain (DC) Discharge Disposition: HOME SELF-CARE
[2016-09-05 17:02] LABS: Glucose,Whole Blood 143 mg/dL (75-99)
[2016-09-05 17:59] LABS: Glucose,Whole Blood 202 mg/dL (75-99)
[2016-09-05] MEDS: PANTOPRAZOLE 40 MG TABLET PO SCH (18:12)
== END 2016-09-05 18:48 | disposition home or self-care (01) | DRG 292 ==
LOC: EC 13:42 → 6SEL 15:51 → 6ICU 09-04 07:44 → 6SEL 09-04 07:46
PROVIDERS: ADMIT Hospitalist; ATTEND Hospitalist
DX: I11.0 Hypertensive heart disease with heart failure (principal); J44.1 Chronic obstructive pulmonary disease with (acute) exacerbation; E11.649 Type 2 diabetes mellitus with hypoglycemia without coma; I42.0 Dilated cardiomyopathy; E11.65 Type 2 diabetes mellitus with hyperglycemia; J45.901 Unspecified asthma with (acute) exacerbation; I50.23 Acute on chronic systolic (congestive) heart failure; T50.1X6A Underdosing of loop [high-ceiling] diuretics, initial encounter; G47.33 Obstructive sleep apnea (adult) (pediatric); D72.829 Elevated white blood cell count, unspecified; R07.89 Other chest pain; E78.5 Hyperlipidemia, unspecified; R00.0 Tachycardia, unspecified; K21.9 Gastro-esophageal reflux disease without esophagitis; R74.8 Abnormal levels of other serum enzymes; M54.2 Cervicalgia; M54.9 Dorsalgia, unspecified; G89.29 Other chronic pain; F90.9 Attention-deficit hyperactivity disorder, unspecified type; F17.210 Nicotine dependence, cigarettes, uncomplicated; F12.90 Cannabis use, unspecified, uncomplicated; I25.10 Atherosclerotic heart disease of native coronary artery without angina pectoris; Z95.810 Presence of automatic (implantable) cardiac defibrillator; Z79.82 Long term (current) use of aspirin; Z79.4 Long term (current) use of insulin; Z81.1 Family history of alcohol abuse and dependence; Z88.8 Allergy status to other drugs, medicaments and biological substances; Z79.891 Long term (current) use of opiate analgesic; Z79.899 Other long term (current) drug therapy; Z90.49 Acquired absence of other specified parts of digestive tract; Z83.79 Family history of other diseases of the digestive system; Z91.14 Patient's other noncompliance with medication regimen; Z91.19 Patient's noncompliance with other medical treatment and regimen
CPT/HCPCS: 36415; 71020; 71275; 80048; 80053; 80061; 81003; 82550; 82553; 83036; 83690; 83735; 83880; 84484; 85025; 85379; 85610; 85730; 93005; 93306; 94640; 96375; 96376; 99291

== ENCOUNTER 2016-10-29 21:55 | Inpatient (IN) | payer MEDICARE, OTHER ==
[2016-10-29] MEDS ORDERED: FUROSEMIDE 10 MG/ML 4 ML VIAL IV STA (22:13)
[2016-10-29] MEDS ORDERED: SODIUM CHLORIDE 0.9% 1,000 ML IV STA (22:13)
[2016-10-29] MEDS ORDERED: IPRATROPIUM 0.5 MG/2.5 ML NEBU INHALATION STA (22:13)
[2016-10-29] MEDS ORDERED: ADENOSINE 3 MG/ML 2 ML VIAL IVP STA (22:18)
[2016-10-29 22:30] LABS: Basophils # (A) 0.1 k/uL (0-0.2); Basophils % (A) 1 %; CH 28.7; CHCM 32.8; Eosinophils # (A) 0.5 k/uL (0-0.7); Eosinophils % (A) 3 %; HDW 2.69; HGB 13.4 gm/dL (13.0-17.5); Luc # (Auto) 0.19; Luc % (Auto) 1; Lymphocytes # (A) 2.8 k/uL (1.0-4.8); Lymphocytes % (A) 16 %; MCH 28.7 pg (25.0-35.0); MCHC 32.7 g/dL (31.0-37.0); MCV 87.8 fL (80.0-100.0); Mean Platelet Volume 7.6; Monocytes # (A) 0.6 k/uL (0-1.0); Monocytes % (A) 4 %; Neutrophils # (A) 13.3 k/uL (1.3-7.7); Neutrophils % (A) 76 %; RBC 4.67 m/uL (4.30-5.90); RDW 12.6 % (11.5-15.5); WBC 17.5 k/uL (3.8-10.6); WBC (Perox) 16.85
[2016-10-29] MEDS: DILTIAZEM 5 MG/ML 5 ML VIAL IVP STA ×2 (22:30→22:54)
--- NOTE | 2016-10-29 22:30 | XR ---
EXAMINATION TYPE: XR chest 1V portable DATE OF EXAM: 10/29/2016 10:12 PM COMPARISON: 09/03/2016 HISTORY: Short of breath TECHNIQUE: Single frontal view of the chest is obtained. FINDINGS: There is some coarsening of interstitial pulmonary markings. There is no gross heart failu re. Costophrenic angles are clear. There is a left axillary pacemaker with the lead tip in the right ventricle. There are chest leads. There are no hilar masses. IMPRESSION: Increased interstitial markings are nonspecific and could relate to interstitial pneumon ia or pulmonary fibrosis. Chest appears slightly worse than last exam..
[2016-10-29 22:31] LABS: ABG Base Excess -0.1 mmol/L; ABG HCO3 25 mmol/L (21-25); ABG PCO2 47 mmHg (35-45); ABG PH 7.34 (7.35-7.45); ABG PO2 94 mmHg (83-108); ABG TCO2 26 mmol/L (19-24)
[2016-10-29 22:39] LABS: ALT 79 U/L (21-72); AST 106 U/L (17-59); Alkaline Phosphatase 137 U/L (38-126); Anion Gap 13 mmol/L; Blood Urea Nitrogen 21 mg/dL (9-20); Calcium 8.7 mg/dL (8.4-10.2); Carbon Dioxide 25 mmol/L (22-30); Chloride 99 mmol/L (98-107); Glucose 325 mg/dL (74-99); Non-African American GFR(MDRD) 55 (>60 ml/min/1.73 sqM); Sodium 137 mmol/L (137-145); Total Bilirubin 0.7 mg/dL (0.2-1.3); Total Protein 6.7 g/dL (6.3-8.2)
--- NOTE | 2016-10-29 22:39 | ED ---
SOB HPI - General Chief Complaint: Shortness of Breath Stated Complaint: RAGHU Time Seen by Provider: 10/29/16 22:01 Source: patient, EMS Mode of arrival: EMS Limitations: no limitations - History of Present Illness Initial Comments: 46 years old male brought in by ambulance on a CPAP, according to the ambulance crew his O2 sat room air was 88 and numb his heart rate was 175 and respiratory rate was 35 and he was using accessory muscles. He has a history of for myocardial infarction, he has a defibrillator in place also has a history of hypertension congestive heart failure and COPD. On arrival he has a CPAP which was converted to BiPAP complaining about shortness of breath and pleuritic chest pain chest pain diaphoresis. He was using accessory muscles to breathe and is respiratory rate was 35, has shortness of breath has chest pain of system is negative otherwise - Related Data Home Medications Medication Instructions Recorded Confirmed Omeprazole [PriLOSEC] 20 mg PO AC-SUPPER 08/10/14 10/29/16 oxyCODONE HCL/ACETAMINOPHEN 1 tab PO QID 05/14/15 10/29/16 [Percocet 10-325 mg] Aspirin 81 mg PO DAILY 10/21/15 10/29/16 Ipratropium-Albuterol Nebulize 3 ml INHALATION RT-TID PRN 10/21/15 10/29/16 [Duoneb 0.5 mg-3 mg/3 ml Soln] Metoprolol Tartrate [Lopressor] 100 mg PO BID 10/21/15 10/29/16 Polyethylene Glycol 3350 [Miralax] 8.5 gm PO DAILY PRN 10/21/15 10/29/16 Albuterol Sulfate [Proair Hfa] 2 puff INHALATION RT-Q6H PRN 01/18/16 10/29/16 INSULIN LISPRO (HumaLOG) [humaLOG] See Protocol SQ TID-W/MEALS 01/18/16 10/29/16 Insulin Glargine,Hum.rec.anlog 70 units SQ BID 01/18/16 10/29/16 [Trudi Bailey] diphenhydrAMINE [Benadryl] 50 mg PO HS PRN 01/18/16 10/29/16 Cholecalciferol [Vitamin D3] 1,000 unit PO FR 10/29/16 10/29/16 Docusate [Colace] 100 mg PO TID PRN 10/29/16 10/29/16 Fluticasone/Salmeterol [Advair 1 puff INHALATION RT-BID 10/29/16 10/29/16 250-50 Diskus] Loratadine [Claritin] 10 mg PO DAILY 10/29/16 10/29/16 Spironolactone [Aldactone] 25 mg PO DAILY 10/29/16 10/29/16 Previous Rx's Medication Instructions Recorded Atorvastatin [Lipitor] 80 mg PO DAILY #30 tab 09/05/16 Furosemide [Lasix] 80 mg PO BID #60 tab 09/05/16 Sacubitril/Valsartan [Entresto 49 1 tab PO BID #60 tablet 09/05/16 mg-51 mg Tablet] Allergies Allergy/AdvReac Type Severity Reaction Status Date / Time gemfibrozil [From Lopid] Allergy Rash/Hives Verified 10/29/16 23:36 Review of Systems ROS Statement: Those systems with pertinent positive or pertinent negative responses have been documented in the HPI. ROS Other: All systems not noted in ROS Statement are negative. Past Medical History Past Medical History: Asthma, Coronary Artery Disease (CAD), Heart Failure, COPD , Diabetes Mellitus, GERD/Reflux, Hyperlipidemia, Hypertension, Sleep Apnea/CPAP /BIPAP Additional Past Medical History / Comment(s): Chronic back pain and neck pain, cardiomyopathy History of Any Multi-Drug Resistant Organisms: None Reported Past Surgical History: Adenoidectomy, AICD, Back Surgery, Cholecystectomy, Heart Catheterization, Tonsillectomy Additional Past Surgical History / Comment(s): EGD/colonoscopy- which was normal per pt, lumbar back surgery, laparoscopic cholecystectomy. 09-02-14 aicd implanted Past Anesthesia/Blood Transfusion Reactions: Motion Sickness Additional Past Anesthesia/Blood Transfusion Reaction / Comment(s): Pt states henot sure if he recieved a blood transfusion after his back surgery . Type of Cardiac Device: AICD Device Placement Date:: 09-02-14 Past Psychological History: ADD/ADHD Additional Psychological History / Comment(s): Pt lives with in a home. Pt is very independent. pt stated he has problem with anxiety not currently taking anything. Smoking Status: Current every day smoker Past Alcohol Use History: Occasional Additional Past Alcohol Use History / Comment(s): Pt states that he quit drinking heavy 15 yrs ago. He states once in a great while he may have one drink.pt started smoking at age 15, has mede several attempt to quit.stated stopped agin 2-3 days ago. was smoking 1/2 ppd Past Drug Use History: None Reported Additional Drug Use History / Comment(s): daily use - Past Family History Father Additional Family Medical History / Comment(s): Pt has not kept in close contact with his father for many yrs. Father was an alcoholic and pt believes he has from cirrhosis of the liver. Mother Additional Family Medical History / Comment(s): Mother is an alcoholic and in "poor health" General Exam Limitations: no limitations Course Vital Signs 10/29/16 10/29/16 10/29/16 21:56 22:00 22:02 Temperature 98.1 F Pulse Rate 172 H 162 H Respiratory 33 H 32 H 32 H Rate Blood Pressure 153/90 163/73 O2 Sat by Pulse 91 L 98 Oximetry 10/29/16 10/29/16 10/29/16 22:10 22:27 22:35 Temperature Pulse Rate 154 H 150 H 141 H Respiratory 20 Rate Blood Pressure O2 Sat by Pulse 98 Oximetry 10/29/16 10/29/16 10/29/16 22:40 22:44 23:00 Temperature Pulse Rate 138 H 137 H 132 H Respiratory 20 20 20 Rate Blood Pressure 118/74 130/64 105/71 O2 Sat by Pulse 96 97 97 Oximetry 10/30/16 00:08 Temperature 98.2 F Pulse Rate 124 H Respiratory 12 Rate Blood Pressure 108/64 O2 Sat by Pulse 96 Oximetry EKG shows supraventricular tachycardia ventricular rate is 159 CT interval, QRS duration is 98 QT/QTC 322/[address] depression in lead 1 and lead to and aVL and aVF noticed some T-wave depression as well, they're artifacts because of respiratory distress he is shaky don't see any clear ST elevation in this EKG - Reevaluation(s) Reevaluation #1: 10/29/16 23:35 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 Romero was contacted around 2330 considering his multiple risk factors his tachycardia is elevated troponin is elevated d-dimer and now tachycardia he will be put in ICU doctor Nick agreed to the Medical Decision Making - Lab Data Result diagrams: 10/29/16 22:15 10/29/16 22:15 Lab Results 10/29/16 10/29/16 10/29/16 Range/Units 22:12 22:15 22:15 WBC 17.5 H (3.8-10.6) k/uL RBC 4.67 (4.30-5.90) m/uL Hgb 13.4 (13.0-17.5) gm/dL Hct 41.0 (39.0-53.0) % MCV 87.8 (80.0-100.0) fL MCH 28.7 (25.0-35.0) pg MCHC 32.7 (31.0-37.0) g/dL RDW 12.6 (11.5-15.5) % Plt Count 276 (150-450) k/uL Neutrophils % 76 % Lymphocytes % 16 % Monocytes % 4 % Eosinophils % 3 % Basophils % 1 % Neutrophils # 13.3 H (1.3-7.7) k/uL Lymphocytes # 2.8 (1.0-4.8) k/uL Monocytes # 0.6 (0-1.0) k/uL Eosinophils # 0.5 (0-0.7) k/uL Basophils # 0.1 (0-0.2) k/uL PT (9.0-12.0) sec INR (<1.1) APTT (22.0-30.0) sec D-Dimer (<0.60) mg/L FEU Sample Site r rad ABG pH 7.34 L (7.35-7.45) ABG pCO2 47 H (35-45) mmHg ABG pO2 94 (83-108) mmHg ABG HCO3 25 (21-25) mmol/L ABG Total CO2 26 H (19-24) mmol/L ABG O2 Saturation 97.0 (94-97) % ABG Base Excess -0.1 mmol/L FiO2 60 % Sodium (137-145) mmol/L Potassium (3.5-5.1) mmol/L Chloride (98-107) mmol/L Carbon Dioxide (22-30) mmol/L Anion Gap mmol/L BUN (9-20) mg/dL Creatinine (0.66-1.25) mg/dL Est GFR (MDRD) Af Amer (>60 ml/min/1.73 sqM) Est GFR (MDRD) Non-Af (>60 ml/min/1.73 sqM) Glucose (74-99) mg/dL Calcium (8.4-10.2) mg/dL Total Bilirubin (0.2-1.3) mg/dL AST (17-59) U/L ALT (21-72) U/L Alkaline Phosphatase (38-126) U/L Total Creatine Kinase 201 H (55-170) U/L CK-MB (CK-2) 1.8 (0.0-2.4) ng/mL CK-MB (CK-2) Rel Index 0.9 Troponin I 0.050 H* (0.000-0.034) ng/mL NT-Pro-B Natriuret Pep pg/mL Total Protein (6.3-8.2) g/dL Albumin (3.5-5.0) g/dL 10/29/16 10/29/16 10/29/16 Range/Units 22:15 22:15 22:15 WBC (3.8-10.6) k/uL RBC (4.30-5.90) m/uL Hgb (13.0-17.5) gm/dL Hct (39.0-53.0) % MCV (80.0-100.0) fL MCH (25.0-35.0) pg MCHC (31.0-37.0) g/dL RDW (11.5-15.5) % Plt Count (150-450) k/uL Neutrophils % % Lymphocytes % % Monocytes % % Eosinophils % % Basophils % % Neutrophils # (1.3-7.7) k/uL Lymphocytes # (1.0-4.8) k/uL Monocytes # (0-1.0) k/uL Eosinophils # (0-0.7) k/uL Basophils # (0-0.2) k/uL PT 10.8 (9.0-12.0) sec INR 1.1 (<1.1) APTT 22.2 (22.0-30.0) sec D-Dimer 1.60 H (<0.60) mg/L FEU Sample Site ABG pH (7.35-7.45) ABG pCO2 (35-45) mmHg ABG pO2 (83-108) mmHg ABG HCO3 (21-25) mmol/L ABG Total CO2 (19-24) mmol/L ABG O2 Saturation (94-97) % ABG Base Excess mmol/L FiO2 % Sodium 137 (137-145) mmol/L Potassium 4.0 (3.5-5.1) mmol/L Chloride 99 (98-107) mmol/L Carbon Dioxide 25 (22-30) mmol/L Anion Gap 13 mmol/L BUN 21 H (9-20) mg/dL Creatinine 1.39 H (0.66-1.25) mg/dL Est GFR (MDRD) Af Amer >60 (>60 ml/min/1.73 sqM) Est GFR (MDRD) Non-Af 55 (>60 ml/min/1.73 sqM) Glucose 325 H (74-99) mg/dL Calcium 8.7 (8.4-10.2) mg/dL Total Bilirubin 0.7 (0.2-1.3) mg/dL AST 106 H (17-59) U/L ALT 79 H (21-72) U/L Alkaline Phosphatase 137 H (38-126) U/L Total Creatine Kinase (55-170) U/L CK-MB (CK-2) (0.0-2.4) ng/mL CK-MB (CK-2) Rel Index Troponin I (0.000-0.034) ng/mL NT-Pro-B Natriuret Pep 1620 pg/mL Total Protein 6.7 (6.3-8.2) g/dL Albumin 3.8 (3.5-5.0) g/dL Critical Care Time Total Critical Care Time: 60 Critical Care Time: When patient came in he was in his CPAP we converted him to BiPAP his respiratory rate was 35 and is a heart rate was 175 EKG showed supraventricular tachycardia at that point his blood pressure was adequate at that point we gave him mom adenosine 12 mg IV that was quite ineffective after that until we tried Cardizem 15 mg IV that slowed his heart slightly heart rate was down to 135 now instead of 175 and another dose of Cardizem was given 20 minutes later the brought his heart rate down to 120 and then cardiac the Cardizem infusion was started with continued the BiPAP after we gave him some Lasix and he felt better then his labs are reviewed his white count is elevated consistent with the insurance interstitial pneumonia we'll start him on some antibiotics his ABGs was strong pH and bicarb looked well his elevated d-dimer we could follow- up with the CT angiogram to rule out PE considering his creatinine is high in his troponin is elevated his current to be heparinized I spoke with the Dr. 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 Borja service Disposition Clinical Impression: Supraventricular tachycardia, Interstitial pneumonia, Myocardial infarction, Elevated d-dimer, Respiratory failure Disposition: ADMITTED IP TO THIS HOSP Condition: Fair
[2016-10-29] MEDS ORDERED: DILTIAZEM 125 MG in SODIUM CHLORIDE 0.9% 100 ML IV ONE (22:42)
[2016-10-29 22:44] LABS: Partial Thromboplastin Time 22.2 sec (22.0-30.0)
[2016-10-29 22:46] LABS: INR 1.1 (<1.1); Prothrombin Time 10.8 sec (9.0-12.0)
[2016-10-29 22:56] LABS: Creatine Kinase MB 1.8 ng/mL (0.0-2.4)
[2016-10-29] MEDS ORDERED: AZITHROMYCIN 500 MG in SODIUM CHLORIDE 0.9% 250 ML IVPB STA (22:57)
[2016-10-29] MEDS ORDERED: cefTRIAXone 2,000 MG in SODIUM CHLORIDE 0.9% 100 ML IVPB STA (22:57)
[2016-10-29] MEDS ORDERED: INSULIN REGULAR 100 UNIT/ML VIAL SQ ONE (22:58)
[2016-10-29 23:06] LABS: Troponin I 0.05 ng/mL (0.000-0.034)
--- NOTE | 2016-10-29 23:13 | XR ---
EXAMINATION TYPE: XR KUB portable DATE OF EXAM: 10/29/2016 10:52 PM COMPARISON: 01/18/2016 HISTORY: Abdominal pain TECHNIQUE: 2 views FINDINGS: There is no sign of intestinal obstruction or pneumoperitoneum. There is no sign of a mass. There is apparent lower lumbar laminectomy. There are opacities over the stomach that could be inges greg medication. There are clips from cholecystectomy. Lung bases appear clear. IMPRESSION: Nonacute abdomen. No free air. No adverse change compared to last exam.
[2016-10-30] MEDS ORDERED: HEPARIN SODIUM,PORCINE 5,000 UNIT/ML 1 ML VIAL IV ONE (00:18)
[2016-10-30] MEDS ORDERED: NITROGLYCERIN SL TABS 0.4 MG TAB SUBLINGUAL PRN (00:18)
[2016-10-30] MEDS ORDERED: HYDROmorphone 1 MG/ML 1 ML SYRINGE IM STA (00:19)
[2016-10-30] MEDS ORDERED: diphenhydrAMINE 25 MG CAP PO PRN (00:25)
[2016-10-30] MEDS ORDERED: HEPARIN SODIUM,PORCINE/D5W PMX 25,000 UNIT in DEXTROSE/WATER 1 500ML.BAG IV SCH (00:30)
[2016-10-30 00:31] LABS: Glucose,Whole Blood 227 mg/dL (75-99)
[2016-10-30 02:34] LABS: Glucose,Whole Blood 279 mg/dL (75-99)
[2016-10-30 04:07] VITALS: BMI 42.0
[2016-10-30] MEDS ORDERED: oxyCODONE-APAP 10-325MG 1 EACH TAB PO STA (04:28)
[2016-10-30 05:24] LABS: Creatine Kinase MB 3.8 ng/mL (0.0-2.4); Troponin I 0.181 ng/mL (0.000-0.034)
[2016-10-30] MEDS ORDERED: SYMBICORT 80-4.5 MCG INHALER INHALATION SCH (08:00)
[2016-10-30] MEDS: IPRATROPIUM-ALBUTEROL 3 ML NEB INHALATION PRN ×3 (08:05→17:56)
--- NOTE | 2016-10-30 08:40 | P.CRDCN ---
History of Present Illness Consult date: 10/30/16 Requesting physician: Frannie Borja Reason for Consult (text): Abnormal troponins Chief complaint: Shortness of breath and cough History of present illness: This is a 46-year-old gentleman who follows regularly with Dr. VC Padilla in the office. He has a known history of dilated cardiomyopathy, hypertension, hyperlipidemia, diabetes, morbid obesity, prior AICD implantation , GERD, he presented to the hospital with symptoms of shortness of breath with associated sinus congestion and cough. According to the patient he's been dealing these symptoms for approximately one week, yesterday the patient states he just could not breathe at all and he called EMS. Blood pressure on EMS arrival 180/100 heart rate 180 respirations 34 ,O2 sat 85 patient was placed directly on CPAP, he was given albuterol and Atrovent inhalers. EKG on presentation here showed an atrial tachycardia, he was given 12 mg of adenosine which was ineffective in the emergency room. Then the patient was given a Cardizem bolus of 15 mg and initiated on a Cardizem drip. He continues to be on a Cardizem drip this morning at 10 mg per hour. Blood pressure this morning 112/68 with a heart rate of 108. Chest x-ray on admission showed increased interstitial markings nonspecific. Could relate interstitial pneumonia or pulmonary fibrosis. KUB x-ray was performed which revealed a nonacute abdomen. No free air. White blood cell count on admission 17.5, hemoglobin 13.4. D- dimer 1.6. BUN 21, creatinine 1.3, potassium 4.0. Blood sugar on arrival 325. Troponins 0.050, 0.181. BNP 1620. AST 106, ALT 79, alk phos 137. White blood cell count 17.5. He is afebrile. Patient was initiated on antibiotics for possible pneumonia. He was also given one dose of IV Lasix in the emergency room. Pacer patient has had multiple readmissions to the hospital this year, it is noted on review of his previous labs that he has abnormal troponins consistently. Patient also was noted to have an abnormal d-dimer last month, a CT of the chest was performed at that time which did not reveal any evidence of a pulmonary embolism. At the time of my examination this morning, patient states he continues to cough up colored sputum, feels congested. Breathing is overall stable. Past Medical History Past Medical History: Asthma, Coronary Artery Disease (CAD), Chest Pain / Angina , Heart Failure, COPD, Diabetes Mellitus, GERD/Reflux, Hyperlipidemia, Hypertension, Myocardial Infarction (non Q-wave), Pneumonia, Sleep Apnea/CPAP/ BIPAP, Supraventricular Tachycardia (SVT) Additional Past Medical History / Comment(s): Chronic back pain and neck pain, cardiomyopathy, admit with SVT on 10/30/2016, per hr is normal 110's and has an EF 10%-15% Last Myocardial Infarction Date:: 07/2016 History of Any Multi-Drug Resistant Organisms: None Reported Past Surgical History: Adenoidectomy, AICD, Back Surgery, Cholecystectomy, EPS, Heart Catheterization, Pacemaker, Tonsillectomy Additional Past Surgical History / Comment(s): EGD/colonoscopy- which was normal per pt, lumbar back surgery, laparoscopic cholecystectomy. 09-02-14 aicd implanted Past Anesthesia/Blood Transfusion Reactions: Motion Sickness Additional Past Anesthesia/Blood Transfusion Reaction / Comment(s): Pt states henot sure if he recieved a blood transfusion after his back surgery . Type of Cardiac Device: Permanent Pacemaker, AICD Device Placement Date:: 09-02-14 Past Psychological History: ADD/ADHD, Anxiety Additional Psychological History / Comment(s): Pt lives with in a home. Pt is very independent. pt stated he has problem with anxiety not currently taking anything. Smoking Status: Current some day smoker Past Alcohol Use History: Occasional Additional Past Alcohol Use History / Comment(s): Pt states that he quit drinking heavy 15 yrs ago. He states once in a great while he may have one drink.pt started smoking at age 15, has mede several attempt to quit.stated stopped agin 2-3 days ago. was smoking 1/2 ppd Past Drug Use History: None Reported Additional Drug Use History / Comment(s): daily use - Past Family History Father Additional Family Medical History / Comment(s): Pt has not kept in close contact with his father for many yrs. Father was an alcoholic and pt believes he has from cirrhosis of the liver. Mother Additional Family Medical History / Comment(s): Mother is an alcoholic and in "poor health" Medications and Allergies Home Medications Medication Instructions Recorded Confirmed Type Omeprazole [PriLOSEC] 20 mg PO AC-SUPPER 08/10/14 10/29/16 History oxyCODONE HCL/ACETAMINOPHEN 1 tab PO QID 05/14/15 10/29/16 History [Percocet 10-325 mg] Aspirin 81 mg PO DAILY 10/21/15 10/29/16 History Ipratropium-Albuterol Nebulize 3 ml INHALATION RT-TID PRN 10/21/15 10/29/16 History [Duoneb 0.5 mg-3 mg/3 ml Soln] Metoprolol Tartrate [Lopressor] 100 mg PO BID 10/21/15 10/29/16 History Polyethylene Glycol 3350 [Miralax] 8.5 gm PO DAILY PRN 10/21/15 10/29/16 History Albuterol Sulfate [Proair Hfa] 2 puff INHALATION RT-Q6H PRN 01/18/16 10/29/16 History INSULIN LISPRO (HumaLOG) [humaLOG] See Protocol SQ TID-W/MEALS 01/18/16 History Insulin Glargine,Hum.rec.anlog 70 units SQ BID 01/18/16 10/29/16 History [Toujeo Solostar] diphenhydrAMINE [Benadryl] 50 mg PO HS PRN 01/18/16 10/29/16 History Cholecalciferol [Vitamin D3] 1,000 unit PO FR 10/29/16 10/29/16 History Docusate [Colace] 100 mg PO TID PRN 10/29/16 10/29/16 History Fluticasone/Salmeterol [Advair 1 puff INHALATION RT-BID 10/29/16 10/29/16 History 250-50 Diskus] Loratadine [Claritin] 10 mg PO DAILY 10/29/16 10/29/16 History Spironolactone [Aldactone] 25 mg PO DAILY 10/29/16 10/29/16 History Allergies Allergy/AdvReac Type Severity Reaction Status Date / Time gemfibrozil [From Lopid] Allergy Rash/Hives Verified 10/29/16 23:36 Physical Exam Vitals: Vital Signs Temp Pulse Pulse Resp BP BP Pulse Ox 10/30/16 04:12 98.7 F 109 H 19 112/68 95 10/30/16 03:00 98 F 114 H 20 99/71 98 10/30/16 02:32 98.1 F 118 H 18 100/62 97 10/30/16 02:00 113 H 20 107/63 95 10/30/16 01:36 98.4 F 118 H 18 106/67 97 10/30/16 00:49 124 H 20 110/63 94 L 10/30/16 00:38 94 L 10/30/16 00:22 98.5 F 124 H 12 99/62 95 Intake and Output 10/29/16 10/30/16 10/30/16 22:59 06:59 14:59 Intake Total 150 Balance 150 Intake: IV 150 Sodium Chloride 0.9% 1, 150 000 ml @ 75 mls/hr IV . [id number] STA Rx#:[id number] Other: Weight 132.7 kg PHYSICAL EXAMINATION: HEENT: Head is atraumatic, normocephalic. Pupils equal, round. Neck is supple. There is no elevated jugular venous pressure. HEART EXAMINATION: Heart S1, S2 normal. No murmur or gallop heard. CHEST EXAMINATION: Lungs reveal fine crackles to bilateral bases with diminished air entry to the bases. ABDOMEN: Soft, obese, nontender. Bowel sounds are heard. No organomegaly noted. EXTREMITIES: 2+ peripheral pulses with 2+ no evidence of peripheral edema and no calf tenderness noted. NEUROLOGIC patient is awake, alert and oriented -3. . Results 10/29/16 22:15 10/29/16 22:15 Cardiac Enzymes 10/30/16 Range/Units 04:02 CK-MB (CK-2) 3.8 H* (0.0-2.4) ng/mL Troponin I 0.181 H* (0.000-0.034) ng/mL Current Medications Generic Name Dose Route Start Last Admin Trade Name Freq PRN Reason Stop Dose Admin Albuterol Sulfate 2.5 mg 10/30/16 00:25 Ventolin Nebulized INHALATION RT-Q6H PRN Shortness Of Breath Albuterol/Ipratropium 3 ml 10/30/16 00:25 Duoneb 0.5 Mg-3 Mg/3 Ml Soln INHALATION RT-TID PRN Shortness Of Breath Aspirin 325 mg 10/31/16 09:00 Aspirin PO DAILY [facility] Atorvastatin Calcium 80 mg 10/30/16 09:00 Lipitor PO DAILY [facility] Budesonide/Formoterol Fumarate 2 puff 10/30/16 08:00 Symbicort 80-4.5 Mcg Inhaler INHALATION RT-BID [facility] Cholecalciferol 1,000 unit 11/02/16 09:00 Vitamin D3 PO Fr@0900 LAN Diphenhydramine HCl 50 mg 10/30/16 00:25 Benadryl PO HS PRN Insomnia Docusate Sodium 100 mg 10/30/16 00:25 Colace PO TID PRN Constipation Furosemide 80 mg 10/30/16 09:00 Lasix PO BID [facility] Sodium Chloride 1,000 mls @ 75 mls/hr 10/29/16 22:13 10/29/16 22:23 Saline 0.9% IV 10/30/16 11:32 75 mls/hr .[id number] STA Administration Diltiazem HCl 125 mg/ Sodium 125 mls @ 10 mls/hr 10/29/16 22:42 10/29/16 22: 57 Chloride IV 10/30/16 11:11 10 mg/hr .[id number] ONE 10 mls/hr Protocol Administration 10 MG/HR Heparin Sodium/Dextrose 25,000 500 mls @ 20.06 mls/hr 10/30/16 00:30 01:49 unit/ IV Solution IV 7.87 units/kg/hr .Q24H LAN 20 mls/hr Protocol Administration 7.9 UNITS/KG/HR Insulin Glargine 70 unit 10/30/16 09:00 Lantus SQ BID [facility] Loratadine 10 mg 10/30/16 09:00 Claritin PO DAILY [facility] Metoprolol Tartrate 100 mg 10/30/16 09:00 Lopressor PO BID [facility] Nitroglycerin 0.4 mg 10/30/16 00:18 Nitrostat SUBLINGUAL Q5M PRN Chest Pain Oxycodone/Acetaminophen 1 each 10/30/16 12:00 Percocet 10-325 PO 0700,1200,1700,2200 LAN Pantoprazole Sodium 40 mg 10/30/16 17:30 Protonix PO AC-SUPPER [facility] Polyethylene Glycol 8.5 gm 10/30/16 00:25 Miralax PO DAILY PRN Constipation Spironolactone 25 mg 10/30/16 09:00 Aldactone PO DAILY [facility] Intake and Output 04/0310/30/16 10/30/16 22:59 06:59 14:59 Intake Total 150 Balance 150 Intake: IV 150 Sodium Chloride 0.9% 1, 150 000 ml @ 75 mls/hr IV . [id number] STA Rx#:[id number] Other: Weight 132.7 kg EKG Interpretations (text) EKG on admission shows a sinus tachycardia Assessment and Plan Plan: Assessment and plan #1 systolic congestive heart failure acute on chronic. BNP level 1620. Patient has chronic systolic congestive heart failure, was recently started on Entresto in May of last year. Most recent echocardiogram with Doppler study was performed in August which revealed an ejection fraction of less than 20% and #2 possible pneumonia, patient currently receiving IV antibiotics #3 abnormal troponins, patient denies having any chest discomfort. Cardiac catheterization in the past revealed normal coronary arteries. Upon review of patient's multiple prior admissions, he has consistently abnormal troponins. #4 abnormal liver enzymes, likely secondary to congestion. #5 acute on chronic renal insufficiency, creatinine 1.3 #6 diabetes #7 hyperlipidemia #8 hypertension #9 atrial tachycardia #10 abnormal d-dimer, patient was noted to have an abnormal d-dimer in August as well, CT of the chest was performed at that time which was negative for pulmonary embolism. Plan We will not repeat the patient's echocardiogram with Doppler study as he just recently had one. We will recommend to put the patient on IV Lasix, monitor intake and output along with daily weights. Check lytes BUN and creatinine daily. As the patient has a known ejection fraction of less than 20%, we'll discontinue the IV Cardizem and increase his dose of beta leah. Further recommendations to follow. DNP note has been reviewed, I agree with a documented findings and plan of care. Patient was seen and examined.
[2016-10-30] MEDS ORDERED: METOPROLOL TARTRATE 50 MG TAB PO SCH (09:00)
[2016-10-30] MEDS ORDERED: AZITHROMYCIN 500 MG in SODIUM CHLORIDE 0.9% 250 ML IVPB SCH (09:00)
[2016-10-30] MEDS ORDERED: oxyCODONE-APAP 10-325MG 1 EACH TAB PO SCH (09:00)
[2016-10-30] MEDS ORDERED: FUROSEMIDE 80 MG TAB PO SCH (09:00)
--- NOTE | 2016-10-30 09:40 | NM ---
EXAMINATION TYPE: NM pul vent and perfuse DATE OF EXAM: 10/30/2016 9:31 AM COMPARISON: Chest x-ray 10/29/2016 HISTORY: Shortness of breath TECHNIQUE: Utilizing inhalation of 68.1 mCi Tc 99m DTPA aerosol and intravenous injection of 5.5 mCi of Tc 99m MAA, ventilation and perfusion images are acquired post injection in multiple projections. FINDINGS: There is reduced uptake in all ventilation images with central clumping of radiotracer. This results in severely limited exam. Perfusion demonstrates a fairly homogeneous uptake. IMPRESSION: Indeterminate analysis due to central clumping of radiotracer ventilation imaging. Fairly homogeneous uptake is seen on perfusion images.
[2016-10-30] MEDS: METOPROLOL TARTRATE 50 MG TAB PO SCH ×3 (09:59→20:06)
[2016-10-30] MEDS: FUROSEMIDE 10 MG/ML 10 ML VIAL IV SCH ×2 (09:59→20:06)
[2016-10-30] MEDS: ATORVASTATIN 80 MG TAB PO SCH (09:59)
[2016-10-30] MEDS: SPIRONOLACTONE 25 MG TAB PO SCH (09:59)
[2016-10-30] MEDS: ASPIRIN 81 MG CHEW PO SCH (09:59)
[2016-10-30] MEDS: LORATADINE 10 MG TAB PO SCH (09:59)
[2016-10-30] MEDS: INSULIN GLARGINE 100 UNIT/ML 10 ML VIAL SQ SCH ×2 (10:03→21:19)
[2016-10-30 10:08] LABS: Glucose,Whole Blood 543 mg/dL (75-99)
[2016-10-30 10:08] LABS: Glucose,Whole Blood 490 mg/dL (75-99)
[2016-10-30] MEDS ORDERED: INSULIN LISPRO (humaLOG) 300 UNIT/3 ML VIAL SQ ONE (10:24)
[2016-10-30] MEDS: ALPRAZolam 0.25 MG TAB PO PRN ×3 (10:34→22:24)
[2016-10-30 10:42] LABS: Creatine Kinase MB 4.3 ng/mL (0.0-2.4)
[2016-10-30 10:43] LABS: Troponin I 0.207 ng/mL (0.000-0.034)
--- NOTE | 2016-10-30 11:15 | P.PN ---
Progress Note - Text This is an addendum to the dictated cardiology consultation. The patient has a known history of severe nonischemic cardiomyopathy, ICD implantation who presents with symptoms of progressive dyspnea, edema and weight gain the started few days ago. He was recently in the hospital and an echocardiogram showed an ejection fraction of less than 20%. The patient started with having an upper respiratory infection with cough but no fever. His troponin is minimally elevated but has been elevated in the past and his NT proBNP is elevated as well. His chest x-ray is consistent with CHF and on his physical examination he has 1+ edema. The patient presents with worsening congestive heart failure probably exacerbated by his upper respiratory infection. We will use intravenous diuresis for the next 24 hours, follow his renal functions and depending on his progress further recommendations will be made. Thank you for this consult we will follow with you.
[2016-10-30 11:36] LABS: Glucose,Whole Blood 452 mg/dL (75-99)
--- NOTE | 2016-10-30 11:48 | CONS ---
DATE OF CONSULTATION: Ezequiel Haynes is a 46-year-old male who presented to the ED at the [facility] with increasing shortness of breath of about 1 to 2 days' duration. He had some chest tightness as well along with this. He came in on CPAP subsequently switched to BiPAP in the ED. He was admitted for further evaluation. He had increased swelling of his lower extremities and had a previous history of asthma, but also cardiomyopathy, which is thought to be nonischemic and ejection fraction of only about 20% and has an AICD. Past medical history is positive for known ischemic cardiomyopathy with AICD implant, history of asthma, hypertension, diabetes mellitus type 2, obesity, obstructive sleep apnea for which he does not wear CPAP, history of morbid obesity. Family history is positive for colon cancer in his mother who in her 40s. He does not know much about his father. SOCIAL HISTORY: He has been exposed to several chemicals but not asbestos when he worked in [employer] and home [employer]. He does not drink alcohol excessively. He used to smoke about a pack of cigarettes per day. He is allergic to GEMFIBROZIL. Medications prior to his admission were oxycodone with acetaminophen in the form of Percocet, diphenhydramine, Aldactone, Entresto, which is sacubitril and valsartan, polyethylene glycol, Prilosec, Lopressor, Claritin, DuoNeb, Toujeo Solostar which is insulin glargine, Humalog insulin, Lasix, Advair Diskus, Colace, vitamin D3, Lipitor, aspirin and albuterol inhaler in the form of ProAir. Before he came to the ER, he had a heart rate in the 170s. On physical examination, his blood pressure is 112/68, respiratory rate of 19, pulse rate 109, temperature 98.7, O2 sat on 6 L by nasal cannula is 95%. HEENT reveals pupils are equal. There is ( ) in the posterior pharynx. Chest reveals scattered basal crackles with prolonged expiration, bilateral wheeze only on forced expiration. Cardiovascular system reveals an S1, S2. Abdomen is soft. There is 2+ pedal edema. ABG showed pH 7.34, pCO2 of 47, pO2 of 94, bicarb of 26, O2 saturation of 97% on 60% FiO2. Sodium is 137, potassium 4, chloride 99, bicarb 25, BUN 21, creatinine of 1.39. Troponin 0.050. NT-proBNP 1620. Troponin subsequently has gone up to 0.181. White count is 17.5, hemoglobin 13.4. Chest x-ray shows cardiomegaly with prominent interstitium. IMPRESSION AT THIS TIME: 1. Acute on chronic respiratory failure with hypercarbia, which is multifactorial. 2. Congestive heart failure. 3. Interstitial lung disease. 4. Asthma. 5. Cardiomyopathy, nonischemic with an EF of only 20%. 6. Obstructive sleep apnea with obesity hypoventilation syndrome. 7. Supraventricular tachycardia. At this point in time, continue the patient on bronchodilators. Because of tachycardia discontinued the formoterol and keep him only on Pulmicort and the nebulizer. Continue him on IV Lasix. Keep him on IV Solu-Medrol. Add Singulair to his regimen to decrease the need for systemic steroids and add antibiotics to his regimen in the form of Rocephin and azithromycin because of elevated white count and the possibility of early pneumonia. Depending on how he does, further changes to his care may need to be made. He will be followed by Dr. Romero tomorrow. I am covering for Dr. Romero at this time.
[2016-10-30] MEDS: INSULIN LISPRO (humaLOG) 300 UNIT/3 ML VIAL SQ SCH ×3 (11:59→21:17)
[2016-10-30] MEDS: oxyCODONE-APAP 10-325MG 1 EACH TAB PO SCH ×3 (11:59→21:16)
[2016-10-30] MEDS: AZITHROMYCIN 500 MG in SODIUM CHLORIDE 0.9% 250 ML IVPB SCH (15:51)
[2016-10-30 17:04] LABS: Glucose,Whole Blood 371 mg/dL (75-99)
[2016-10-30] MEDS: PANTOPRAZOLE 40 MG TABLET PO SCH (17:39)
[2016-10-30 17:55] LABS: Glucose,Whole Blood 396 mg/dL (75-99)
[2016-10-30] MEDS: BUDESONIDE 0.5 MG/2 ML NEBU INHALATION SCH (17:56)
--- NOTE | 2016-10-30 19:51 | HP ---
DATE OF ADMISSION: 10/30/2016 CHIEF COMPLAINT: Shortness of breath. HISTORY OF PRESENT ILLNESS: This 46-year-old gentleman with a past history of multiple medical problems, including asthma, COPD, history of congestive heart failure, history of coronary artery disease, history of diabetes, GERD, hypertension, hyperlipidemia, myocardial infarction, sleep apnea, history of adenoidectomy, history of back surgery, cholecystectomy, cystectomies and AICD, being followed by Dr. Hunter Romano in the outpatient setting was recently admitted with CHF acute exacerbation, which was suspected due to noncompliance with medication especially Lasix. The patient has currently presented to the Emergency Room Department in severe respiratory with oxygen sats 88. The patient was using accessory muscles, respiratory rate was found to be 35 and heart rate is 175. Supraventricular tachycardia was suspected. Patient also had features of congestive heart failure. The patient also has automatic implantable cardioverter defibrillator in place. The patient was treated with a BiPAP in the ER because of acute hypoxic respiratory failure and subsequently patient was put on Ventimask and transferred to the floor. Pulmonary and cardiology consultation evaluation in progress. There is no history of any fever, rigors, chills. No history of headache, loss of consciousness, seizures at this time. PAST MEDICAL HISTORY: History of asthma, chronic obstructive pulmonary disease, history of CAD, CHF, Type 2 diabetes mellitus, gastroesophageal reflux disease, hypertension, hyperlipidemia, myocardial infarction, cardiomyopathy, adenoidectomy, AICD and back surgery. Medications prior to admission include home medications are: 1. Oxycodone one tablets p.o. in the morning. 2. Benadryl 50 mg q.h.s. 3. Aldactone 25 mg daily. 4. Entresto ( ) one tablet p.o. b.i.d. 5. Miralax 3.35 mg, 8.5 gm daily p.r.n. 6. Prilosec 20 mg a.c. supper. 7. Lopressor 100 mg p.o. b.i.d. 8. Claritin 10 mg p.o. daily. 9. Duoneb t.i.d. and p.r.n. 10. ( ) 17 units subcu b.i.d. 11. Humalog t.i.d. with meals. 12. Lasix 30 mg p.o. b.i.d. 13. Advair 250/50 one puff b.i.d. 14. Colace 100 mg t.i.d. p.r.n. 15. Vitamin D3 1000 units ER. 16. Lipitor 80 mg p.o. daily. 17. Aspirin 81 mg p.o. daily. 18. Pro-Air HFA two puffs q6h p.r.n. ALLERGIES: GEMFIBROZIL. FAMILY HISTORY: No history of heart disease or strokes in the family. History of Alcoholism in the family. SOCIAL HISTORY: History of smoking. No history of alcohol intake. REVIEW OF SYSTEMS: ENT: No diminished vision. No diminished hearing. CARDIOVASCULAR: As mentioned earlier. RESPIRATORY: As mentioned earlier. GI: No nausea. : No dysuria. CENTRAL NERVOUS SYSTEM: No numbness, weakness. Allergy/immunology: No asthma or hayfever. MUSCULOSKELETAL: As mentioned earlier. HEMATOLOGY/ONCOLOGY: No history of anemia. ENDOCRINE: As mentioned earlier. CONSTITUTIONAL: As mentioned earlier. DERMATOLOGY: negative. RHEUMATOLOGY: Negative. PSYCHIATRY: As mentioned earlier. PHYSICAL EXAMINATION: Alert and oriented times three. Pulse 107, blood pressure 138/( ), Respiratory rate 22, temperature 97.7, pulse ox 97% on high flow nasal cannula. HEENT: Conjunctivae normal. Oral mucosa moist. Pulse ox anywhere from 98 on BiPAP. NECK: Obese, no jugular venous distension. No carotid bruit. No lymph node enlargement. CARDIOVASCULAR: S1, S2 muffled. No S3, no S4. Ejection systolic murmur present. RESPIRATORY: Breath sounds diminished at the bases. Bilateral scattered rhonchi and crackles. No bronchial breath sounds. ABDOMEN: Soft, obese, nontender. No mass palpable. LEGS: No edema. No swelling. Nervous system: Higher function as mentioned earlier. Moves all 4 limbs. No focal motor or sensory deficits. LYMPHATICS: No lymph nodes palpable in the neck, axillae or groin. SKIN: No ulcers, rash, bleeding. LABS: At this time shows WBC 17.5 and BMI is 1.60. ABGs pH of 7.34 and pCO2 47 and creatinine is 1.39. Troponin 0.050 and 0.207 and total creatinine is 239, alkaline phosphatase is 137, AST is 106 and ALT 79. Influenza negative, glucose 452. ASSESSMENT: 1. Congestive heart failure, acute exacerbation, with acute on chronic systolic dysfunction, ejection fraction 20% with acute hypoxic hypercarbic respiratory failure on BiPAP, status post BiPAP. 2. Asthma, chronic obstructive pulmonary disease, acute exacerbation. 3. Type 2 diabetes mellitus uncontrolled. 4. Increased creatinine with possibly acute renal failure, multifactorial prerenal factors. 5. Troponin 0.207, rule out acute onset non-ST elevation myocardial infarction. 6. Acute purulent tracheobronchitis. 7. Acute respiratory acidosis, mild. 8. Increased WBC. 9. Increased d-dimer. 10. History of diabetes type 2. 11. History of gastroesophageal reflux disease. 12. Hypertension, essential. 13. Hyperlipidemia. 14. History of sleep apnea CPAP, BiPAP. 15. History of supraventricular tachycardia. 16. History of cardiomyopathy. 17. Automatic implantable cardioverter defibrillator. 18. History of degenerative joint disease, back surgery. 19. History of cardiac catheterization. 20. History of motion sickness. 21. History of attention deficit disorder/attention deficit hyperactivity disorder, anxiety, not otherwise specified. 22. History of continued ongoing nicotine dependence. 23. History of noncompliance. 24. Obesity with body mass index of 42. 25. FULL CODE. RECOMMENDATIONS AND DISCUSSION: In this patient is a 46-year-old gentleman who presented with multiple complex medical issues, we will monitor the patient closely, continue the current medications, continue symptomatic treatment. The patient started on IV diuretics at this time, closely follow with cardiology and pulmonology. Monitor blood sugars closely. Otherwise, sugars are high, insulin drip may be utilized. The repeat labs will be ordered. Empiric antibiotics will be given for tracheobronchitis also. Prognosis guarded because of multiple complex medical issues. Further recommendations to follow. A copy of dictation being forwarded to Dr. Hunter Romano who is the primary care physician. [facility]
[2016-10-30] MEDS: MONTELUKAST 10 MG TAB PO SCH (20:06)
[2016-10-30] MEDS: DOCUSATE 100 MG CAP PO PRN (20:06)
[2016-10-30] MEDS ORDERED: ONDANSETRON 4 MG/2 ML VIAL IVP PRN (20:17)
[2016-10-30 21:13] LABS: Appearance,Urine Clear (Clear); Bilirubin,Urine Negative (Negative); Glucose,Urine (UA) 4+ (Negative); Ketones,Urine Negative (Negative); Leukocyte Esterase,Urine Negative (Negative); Nitrite,Urine Negative (Negative); PH, Urine 5.5 (5.0-8.0); Protein,Urine Negative (Negative); Specific Gravity,Urine 1.011 (1.001-1.035); UA Billing (MACRO vs. MICRO) CHEM; Urobilinogen,Urine <2.0 mg/dL (<2.0)
[2016-10-30 21:17] LABS: Glucose,Whole Blood 376 mg/dL (75-99)
[2016-10-30] MEDS ORDERED: oxyCODONE-APAP 10-325MG 1 EACH TAB PO ONE (22:26)
[2016-10-31 06:17] LABS: Glucose,Whole Blood 276 mg/dL (75-99)
[2016-10-31] MEDS: INSULIN LISPRO (humaLOG) 300 UNIT/3 ML VIAL SQ SCH ×5 (06:35→21:26)
[2016-10-31] MEDS: oxyCODONE-APAP 10-325MG 1 EACH TAB PO SCH ×4 (06:35→21:37)
[2016-10-31 07:06] LABS: Anion Gap 11 mmol/L; Blood Urea Nitrogen 30 mg/dL (9-20); Calcium 9.3 mg/dL (8.4-10.2); Carbon Dioxide 25 mmol/L (22-30); Chloride 99 mmol/L (98-107); Cholesterol 171 mg/dL (<200); Glucose 261 mg/dL (74-99); HDL Cholesterol 30 mg/dL (40-60); Non-African American GFR(MDRD) >60 (>60 ml/min/1.73 sqM); Potassium 4.7 mmol/L (3.5-5.1); Sodium 135 mmol/L (137-145); Triglycerides 165 mg/dL (<150)
[2016-10-31] MEDS: SPIRONOLACTONE 25 MG TAB PO SCH (08:16)
[2016-10-31] MEDS: LORATADINE 10 MG TAB PO SCH (08:16)
[2016-10-31] MEDS: ALPRAZolam 0.25 MG TAB PO PRN ×3 (08:16→23:17)
[2016-10-31] MEDS: METOPROLOL TARTRATE 50 MG TAB PO SCH ×3 (08:16→21:27)
[2016-10-31] MEDS: INSULIN GLARGINE 100 UNIT/ML 10 ML VIAL SQ SCH ×2 (08:17→21:37)
[2016-10-31] MEDS: ASPIRIN 81 MG CHEW PO SCH (08:17)
[2016-10-31] MEDS: FUROSEMIDE 10 MG/ML 10 ML VIAL IV SCH ×2 (08:17→21:24)
[2016-10-31] MEDS: ATORVASTATIN 80 MG TAB PO SCH (08:17)
[2016-10-31] MEDS: IPRATROPIUM-ALBUTEROL 3 ML NEB INHALATION PRN ×3 (08:42→19:42)
[2016-10-31] MEDS: BUDESONIDE 0.5 MG/2 ML NEBU INHALATION SCH ×2 (08:42→19:42)
[2016-10-31] MEDS ORDERED: ASPIRIN 325 MG TAB PO SCH (09:00)
[2016-10-31] MEDS: methylPREDNISolone SOD SUCCI 125 MG/2 ML VIAL IV SCH ×3 (10:49→23:15)
[2016-10-31] MEDS: SODIUM CHLORIDE 0.65% NASAL SPRAY 44 ML BTL NASAL PRN ×2 (10:49→17:38)
[2016-10-31 11:52] LABS: Glucose,Whole Blood 346 mg/dL (75-99)
--- NOTE | 2016-10-31 13:25 | P.PN ---
Subjective This is a 46-year-old male being evaluated and examined today on the sixth floor. The patient came into the emergency room by ambulance on CPAP. According to the ambulance crew the patient's pulse ox was 88% on room air and his heart rate was in the 170s, and respiratory rate was in the mid 30s. The patient was using accessory muscles as well. The patient was then converted to BiPAP in the emergency room as he continued to complain of shortness of breath and pleuritic chest pain with diaphoresis. the patient's EKG in the emergency room showed supraventricular tachycardia. The patient's lab also revealed an elevated d-dimerof 1.60, a VQ scan was completed and there was no pulmonary embolism. The patient is also known to have a EF of only about 20%. the patient does have a history of obstructive sleep apnea however does not wear CPAP or BiPAP at home. The patient also was noted to have some significant weight gain in the last few days, increased edema in his legs along with his dyspnea. The patient is also known to have a history of myocardial infarction as well as a AICD, hypertension, cardiomyopathy, heart congestive heart failure , and COPD. Upon examination the patient is resting up in bed on 5 L of oxygen via nasal cannula, and becomes short of breath with any exertion or extensive conversation. The patient does continue to have a cough and is bringing up yellow to green sputum. Objective - Vital Signs Vital signs: Vital Signs Temp 96.1 F L 10/31/16 08:16 Pulse 104 H 10/31/16 08:55 Resp 20 10/31/16 08:16 BP 133/58 10/31/16 08:16 Pulse Ox 95 10/31/16 08:16 Intake & Output 10/30/16 10/31/16 10/31/16 18:59 06:59 18:59 Intake Total 510 250 Output Total 980 Balance 510 -730 Weight 132.7 kg 133.1 kg Intake: Intake, IV Titration 300 Amount Azithromycin 500 mg In 250 Sodium Chloride 0.9% 250 ml @ 125 mls/hr IVPB DAILY@1600 LAN Rx#: [id number] cefTRIAXone 1,000 mg In 50 Sodium Chloride 0.9% 50 ml @ 100 mls/hr IVPB Q24HR LAN Rx#:[id number] Oral 210 250 Output: Urine 980 Other: # Voids 1 - Exam GENERAL EXAM: Alert, active, comfortable in no apparent distress. HEAD: Normocephalic. EYES: Normal reaction of pupils, equal size. NOSE: Clear with pink turbinates. THROAT: No erythema or exudates. NECK: No masses, no JVD. CHEST: No chest wall deformity. LUNGS: decreased bilateral air entry, bilateral fine crackles noted. inspiratory and expiratory wheezes also noted CVS: S1 and S2 normal with no audible mumurs, regular rhythm. ABDOMEN: No hepatosplenomegaly, normal bowel sounds, no guarding or rigidity. EXTREMITIES: 2+ lower extremity edema noted, pedal pulses palpable. SKIN: No rashes CENTRAL NERVOUS SYSTEM: No focal deficits, tone is normal in all 4 extremities. - Labs CBC & Chem 7: 10/29/16 22:15 10/31/16 06:18 Labs: Abnormal Lab Results - Last 24 Hours (Table) 10/30/16 10/30/16 10/30/16 Range/Units 09:35 10:48 11:30 Sodium (137-145) mmol/L BUN (9-20) mg/dL Glucose (74-99) mg/dL POC Glucose (mg/dL) 452 H (75-99) mg/dL Hemoglobin A1c 10.0 H (4.2-6.1) % Total Creatine Kinase 239 H (55-170) U/L CK-MB (CK-2) 4.3 H* (0.0-2.4) ng/mL Troponin I 0.207 H* (0.000-0.034) ng/mL Triglycerides (<150) mg/dL LDL Cholesterol, Calc (0-99) mg/dL HDL Cholesterol (40-60) mg/dL Urine Glucose (UA) (Negative) 10/30/16 10/30/16 10/30/16 Range/Units 17:00 17:44 20:49 Sodium (137-145) mmol/L BUN (9-20) mg/dL Glucose (74-99) mg/dL POC Glucose (mg/dL) 371 H 396 H (75-99) mg/dL Hemoglobin A1c (4.2-6.1) % Total Creatine Kinase (55-170) U/L CK-MB (CK-2) (0.0-2.4) ng/mL Troponin I (0.000-0.034) ng/mL Triglycerides (<150) mg/dL LDL Cholesterol, Calc (0-99) mg/dL HDL Cholesterol (40-60) mg/dL Urine Glucose (UA) 4+ H (Negative) 10/30/16 10/31/16 10/31/16 Range/Units 21:15 06:16 06:18 Sodium 135 L (137-145) mmol/L BUN 30 H (9-20) mg/dL Glucose 261 H (74-99) mg/dL POC Glucose (mg/dL) 376 H 276 H (75-99) mg/dL Hemoglobin A1c (4.2-6.1) % Total Creatine Kinase (55-170) U/L CK-MB (CK-2) (0.0-2.4) ng/mL Troponin I (0.000-0.034) ng/mL Triglycerides 165 H (<150) mg/dL LDL Cholesterol, Calc 108 H (0-99) mg/dL HDL Cholesterol 30 L (40-60) mg/dL Urine Glucose (UA) (Negative) Microbiology - Last 24 Hours (Table) 10/30/16 20:49 Urine Culture - Preliminary Urine,Voided Assessment and Plan Plan: Assessment Probable pneumonia Acute on chronic respiratory failure Acute on chronic systolic congestive heart failure Interstitial lung disease Chronic persistent asthma Elevated troponins Elevated liver enzymes Elevated d-dimer Acute on chronic renal insufficiency Diabetes mellitus Hyperlipidemia Hypertension Supraventricular tachycardia Obstructive sleep apnea with obesity hypoventilation syndrome plan Medications have been reviewed and will be continued as ordered. The patient is known to have an EF of less than 20%. We will continue to monitor his weight and fluid balance. we will add IV steroids. Continue with supportive care, pulmonary hygiene and incentive spirometer. We will continue to monitor labs/results and make adjustments in treatment as necessary. I performed an examination of the patient and discussed their management with the nurse practitioner. I have reviewed the nurse practitioner's note and agree with the documented findings and plan of care.
--- NOTE | 2016-10-31 13:56 | P.PN ---
Subjective Principal diagnosis: shortness of breath This is a 46-year-old gentleman who follows regularly with Dr. VC Padilla in the office. He has a known history of dilated cardiomyopathy, hypertension, hyperlipidemia, diabetes, morbid obesity, prior AICD implantation , GERD, he presented to the hospital with symptoms of shortness of breath with associated sinus congestion and cough.patient is currently receiving Lasix IV 80 mg twice a day. He continues to diurese well. Continues to have a 1+ peripheral edema, creatinine today 1.07. Objective - Vital Signs Vital signs: Vital Signs Temp 98.6 F 10/31/16 11:08 Pulse 100 10/31/16 13:16 Resp 20 10/31/16 11:08 BP 121/81 10/31/16 11:08 Pulse Ox 97 10/31/16 11:08 Intake & Output 10/30/16 10/31/16 10/31/16 18:59 06:59 18:59 Intake Total 510 250 240 Output Total 980 Balance 510 -730 240 Weight 132.7 kg 133.1 kg Intake: Intake, IV Titration 300 Amount Azithromycin 500 mg In 250 Sodium Chloride 0.9% 250 ml @ 125 mls/hr IVPB DAILY@1600 [facility] Rx#: [id number] cefTRIAXone 1,000 mg In 50 Sodium Chloride 0.9% 50 ml @ 100 mls/hr IVPB Q24HR [facility] Rx#:[id number] Oral 210 250 240 Output: Urine 980 Other: # Voids 1 - Exam PHYSICAL EXAMINATION: HEENT: Head is atraumatic, normocephalic. Pupils equal, round. Neck is supple. There is no elevated jugular venous pressure. HEART EXAMINATION: Heart S1, S2 normal. No murmur or gallop heard. CHEST EXAMINATION: Lungs reveal fine crackles to bilateral bases with diminished air entry to the bases. ABDOMEN: Soft, obese, nontender. Bowel sounds are heard. No organomegaly noted. EXTREMITIES: 2+ peripheral pulses with 1+ evidence of peripheral edema and no calf tenderness noted. NEUROLOGIC patient is awake, alert and oriented -3. - Labs CBC & Chem 7: 10/29/16 22:15 10/31/16 06:18 Labs: Abnormal Lab Results - Last 24 Hours (Table) 10/30/16 10/30/16 10/30/16 Range/Units 17:00 17:44 20:49 Sodium (137-145) mmol/L BUN (9-20) mg/dL Glucose (74-99) mg/dL POC Glucose (mg/dL) 371 H 396 H (75-99) mg/dL Triglycerides (<150) mg/dL LDL Cholesterol, Calc (0-99) mg/dL HDL Cholesterol (40-60) mg/dL Urine Glucose (UA) 4+ H (Negative) 10/30/16 10/31/16 10/31/16 Range/Units 21:15 06:16 06:18 Sodium 135 L (137-145) mmol/L BUN 30 H (9-20) mg/dL Glucose 261 H (74-99) mg/dL POC Glucose (mg/dL) 376 H 276 H (75-99) mg/dL Triglycerides 165 H (<150) mg/dL LDL Cholesterol, Calc 108 H (0-99) mg/dL HDL Cholesterol 30 L (40-60) mg/dL Urine Glucose (UA) (Negative) 10/31/16 Range/Units 11:37 Sodium (137-145) mmol/L BUN (9-20) mg/dL Glucose (74-99) mg/dL POC Glucose (mg/dL) 346 H (75-99) mg/dL Triglycerides (<150) mg/dL LDL Cholesterol, Calc (0-99) mg/dL HDL Cholesterol (40-60) mg/dL Urine Glucose (UA) (Negative) Microbiology - Last 24 Hours (Table) 10/30/16 20:49 Urine Culture - Preliminary Urine,Voided Assessment and Plan Plan: Assessment and plan #1 systolic congestive heart failure acute on chronic. BNP level 1620. Patient has chronic systolic congestive heart failure, was recently started on Entresto in May of last year. Most recent echocardiogram with Doppler study was performed in August which revealed an ejection fraction of less than 20% and #2 possible pneumonia, patient currently receiving IV antibiotics #3 abnormal troponins, patient denies having any chest discomfort. Cardiac catheterization in the past revealed normal coronary arteries. Upon review of patient's multiple prior admissions, he has consistently abnormal troponins. #4 abnormal liver enzymes, likely secondary to congestion. #5 acute on chronic renal insufficiency, creatinine 1.0 #6 diabetes #7 hyperlipidemia #8 hypertension #9 atrial tachycardia #10 abnormal d-dimer, patient was noted to have an abnormal d-dimer in August as well, CT of the chest was performed at that time which was negative for pulmonary embolism. Plan we will continue IV Lasix at 80 mg twice a day, check lytes BUN and creatinine in the morning. DNP note has been reviewed, I agree with a documented findings and plan of care. Patient was seen and examined.
[2016-10-31 14:39] LABS: Anion Gap 16 mmol/L; Blood Urea Nitrogen 30 mg/dL (9-20); Calcium 9.6 mg/dL (8.4-10.2); Carbon Dioxide 25 mmol/L (22-30); Chloride 97 mmol/L (98-107); Glucose 237 mg/dL (74-99); Non-African American GFR(MDRD) >60 (>60 ml/min/1.73 sqM); Potassium 4.8 mmol/L (3.5-5.1); Sodium 138 mmol/L (137-145)
[2016-10-31] MEDS: POLYETHYLENE GLYCOL 3350 17 GM POWD.PACK PO PRN (15:20)
[2016-10-31] MEDS: DOCUSATE 100 MG CAP PO PRN ×2 (15:21→23:17)
[2016-10-31] MEDS: AZITHROMYCIN 500 MG in SODIUM CHLORIDE 0.9% 250 ML IVPB SCH (15:26)
[2016-10-31 16:20] LABS: Glucose,Whole Blood 461 mg/dL (75-99)
[2016-10-31] MEDS: PANTOPRAZOLE 40 MG TABLET PO SCH (16:29)
[2016-10-31] MEDS: ALBUTEROL NEBULIZED 2.5 MG/3 ML INHALATION PRN (16:38)
--- NOTE | 2016-10-31 16:48 | PN ---
DATE OF SERVICE: 10/31/2016 This 46-year-old gentleman admitted with shortness of breath which is possibly multifactorial, CHF, COPD, acute exacerbation, was on Lasix. The patient is on steroids, bronchodilators, multiple consultants are following the patient closely. The patient is slightly improving at this time. Patient is apparently noncompliant with Lasix also. According to the , the patient apparently ran out of Lasix. Past medical history reviewed. REVIEW OF SYSTEMS: CARDIOVASCULAR: No angina or palpitations. GI: No nausea. : No dysuria. Nervous system: No numbness or weakness. Current medications are: 1. Ventolin 2.5 q6h p.r.n. 2. DuoNeb q.i.d. and p.r.n. 3. Xanax 0.25 t.i.d. 4. Aspirin 81 mg. 5. Lipitor 80 mg at bedtime. 7. Pulmicort 0.5 b.i.d. 8. PhosLo 1 gram daily. 9. Vitamin D3 1000 daily. 10. Benadryl 50 mg q.h.s. p.r.n. 11. Colace 100 mg t.i.d. 12. Lasix 80 mg IV b.i.d. 13. Mucinex 600 mg b.i.d. 14. Lantus 70 units subcu b.i.d. 15. Claritin 10 mg daily. 16. Solu-Medrol 60 IV q.8. 17. Lopressor 100 mg t.i.d. 18. Singulair 10 mg daily. 19. Nitrostat. 20. Zofran 4 mg IV q.6 p.r.n. 21. Percocet 10 mg q.6 p.r.n. 22. Protonix. 23. Miralax. 24. Aldactone. PHYSICAL EXAMINATION: The patient is alert and oriented times three. Pulse 93. Blood pressure 120/81. Respiratory rate 20, temperature 98.6, pulse ox 97% on 5 L nasal cannula. HEENT: Conjunctivae normal. Oral mucosa moist. NECK: No jugular venous distention. No carotid bruit. No lymph node enlargement. CARDIOVASCULAR: S1, S2 muffled. No S3, No S4. RESPIRATORY: Breath sounds diminished at the bases. Breath efforts are markedly increased. Bilateral scattered rhonchi and crackles. Expiratory wheezing also present. ABDOMEN: Soft, nontender. No mass palpable. LEGS: No edema. No swelling. CENTRAL NERVOUS SYSTEM: Higher functions as mentioned earlier. Moves all four limbs. No focal deficits. LYMPHATICS: No lymph nodes palpable in the neck, axillae or groin. SKIN: No ulcer, rash or bleeding. Labs at this time show WBC 17.5. D-dimer is 1.6 and pH of 7.34. Glucose 376, troponin 0.207. Lipids are noted. ASSESSMENT: 1. Congestive heart failure, acute exacerbation, with acute on chronic systolic dysfunction, ejection of 20% with acute hypoxic hypercarbic respiratory failure, status post BiPAP. 2. Asthma, chronic obstructive pulmonary disease, acute exacerbation, with acute purulent tracheobronchitis. 3. Diabetes mellitus Type II, uncontrolled. 4. Increased creatinine with possible acute renal failure, multifactorial, possible prerenal factors. 5. Troponin 0.207, rule out acute non-ST segment elevation myocardial infarction. 6. Acute respiratory acidosis, mild. 7. Increased WBC. 8. Increased d-dimer. 9. History of diabetes type 2. 10. History of gastroesophageal reflux disease. 11. Hypertension, essential. 12. Hyperlipidemia. 13. History of sleep apnea on CPAP and BiPAP. 14. History of supraventricular tachycardia. 15. History of cardiomyopathy. 16. History automatic implantable cardioverter-defibrillator. 17. History of degenerative joint disease and back surgery. 18. History of cardiac catheterization. 19. Motion sickness. 20. Attention deficit hyperactivity disorder/ attention deficit disorder and anxiety, not otherwise specified. 21. History of continued ongoing nicotine dependence. 22. History of noncompliance. 23. Obesity with body mass index of 42. 24. FULL CODE. RECOMMENDATIONS AND DISCUSSION: Continue current medications and continue symptomatic treatment. We will monitor intake/output carefully. The weight is fluctuating as recorded. Otherwise, I would also recommend monitor blood sugars closely. Troponins are noted. Follow up closely with cardiology and pulmonology. Otherwise, resume the home medications and diuretics. Further recommendations to follow. Guarded prognosis. MTDD
[2016-10-31 17:16] LABS: Glucose,Whole Blood 455 mg/dL (75-99)
[2016-10-31] MEDS ORDERED: INSULIN REGULAR 100 UNIT/ML VIAL IV ONE (17:19)
[2016-10-31] MEDS: guaiFENesin 600 MG TABLET.ER PO SCH (17:38)
[2016-10-31 21:01] LABS: Glucose,Whole Blood 378 mg/dL (75-99)
[2016-10-31] MEDS: MONTELUKAST 10 MG TAB PO SCH (21:26)
[2016-10-31 22:35] VITALS: RESP 18
[2016-11-01 02:04] LABS: Glucose,Whole Blood 351 mg/dL (75-99)
[2016-11-01 05:59] LABS: Glucose,Whole Blood 396 mg/dL (75-99)
[2016-11-01] MEDS ORDERED: INSULIN GLARGINE 100 UNIT/ML 10 ML VIAL SQ STA (06:15)
[2016-11-01] MEDS ORDERED: INSULIN REGULAR 100 UNIT/ML VIAL IV STA (06:16)
[2016-11-01] MEDS: INSULIN GLARGINE 100 UNIT/ML 10 ML VIAL SQ SCH (06:17)
[2016-11-01] MEDS: INSULIN LISPRO (humaLOG) 300 UNIT/3 ML VIAL SQ SCH ×4 (06:35→17:02)
[2016-11-01] MEDS: oxyCODONE-APAP 10-325MG 1 EACH TAB PO SCH (06:40)
[2016-11-01] MEDS: IPRATROPIUM-ALBUTEROL 3 ML NEB INHALATION PRN ×3 (06:52→20:05)
[2016-11-01] MEDS: BUDESONIDE 0.5 MG/2 ML NEBU INHALATION SCH ×2 (06:52→20:05)
[2016-11-01] MEDS: FUROSEMIDE 10 MG/ML 10 ML VIAL IV SCH ×2 (08:21→19:54)
[2016-11-01] MEDS: methylPREDNISolone SOD SUCCI 125 MG/2 ML VIAL IV SCH (08:24)
[2016-11-01] MEDS: oxyCODONE-APAP 10-325MG 1 EACH TAB PO PRN ×3 (08:32→19:59)
[2016-11-01] MEDS: ALPRAZolam 0.25 MG TAB PO PRN ×3 (08:32→21:53)
[2016-11-01] MEDS: ATORVASTATIN 80 MG TAB PO SCH (08:33)
[2016-11-01] MEDS: ASPIRIN 81 MG CHEW PO SCH (08:33)
[2016-11-01] MEDS: guaiFENesin 600 MG TABLET.ER PO SCH ×2 (08:34→19:54)
[2016-11-01] MEDS: LORATADINE 10 MG TAB PO SCH (08:34)
[2016-11-01] MEDS: METOPROLOL TARTRATE 50 MG TAB PO SCH ×3 (08:34→19:54)
[2016-11-01] MEDS: SPIRONOLACTONE 25 MG TAB PO SCH (08:35)
[2016-11-01] MEDS: DOCUSATE 100 MG CAP PO PRN ×3 (09:33→21:53)
[2016-11-01 10:15] LABS: Blood Urea Nitrogen 36 mg/dL (9-20); Calcium 9.6 mg/dL (8.4-10.2); Carbon Dioxide 23 mmol/L (22-30); Chloride 95 mmol/L (98-107); Non-African American GFR(MDRD) >60 (>60 ml/min/1.73 sqM); Potassium 5.3 mmol/L (3.5-5.1)
[2016-11-01 10:27] LABS: Anion Gap 15 mmol/L; Glucose 508 mg/dL (74-99); Sodium 133 mmol/L (137-145)
--- NOTE | 2016-11-01 10:28 | P.PN ---
Subjective This is a 46-year-old male being evaluated and examined today on the sixth floor. The patient came into the emergency room by ambulance on CPAP. According to the ambulance crew the patient's pulse ox was 88% on room air and his heart rate was in the 170s, and respiratory rate was in the mid 30s. The patient was using accessory muscles as well. The patient was then converted to BiPAP in the emergency room as he continued to complain of shortness of breath and pleuritic chest pain with diaphoresis. the patient's EKG in the emergency room showed supraventricular tachycardia. The patient's lab also revealed an elevated d-dimer of 1.60, a VQ scan was completed and there was no pulmonary embolism. The patient is also known to have a EF of only about 20%. the patient does have a history of obstructive sleep apnea however does not wear CPAP or BiPAP at home. The patient also was noted to have some significant weight gain in the last few days, increased edema in his legs along with his dyspnea. The patient is also known to have a history of myocardial infarction as well as a AICD, hypertension, cardiomyopathy, heart congestive heart failure , and COPD. Upon examination the patient is resting up in bed on 3 L of oxygen via nasal cannula, and becomes short of breath with exertion. However this has improved over the last day. Patient is ambulating more frequently today, incentive spirometer was initiated and he is pulling volumes of 2200. Objective - Vital Signs Vital signs: Vital Signs Temp 96.8 F L 11/01/16 08:00 Pulse 97 11/01/16 08:00 Resp 18 11/01/16 08:00 BP 119/68 11/01/16 08:00 Pulse Ox 96 11/01/16 08:00 Intake & Output 10/31/16 11/01/16 11/01/16 18:59 06:59 18:59 Intake Total 290 270 200 Output Total 700 Balance -410 270 200 Weight 133.4 kg Intake: IV 20 0.9% NS FLUSH 20 Intake, IV Titration 50 Amount cefTRIAXone 1,000 mg In 50 Sodium Chloride 0.9% 50 ml @ 100 mls/hr IVPB Q24HR LAN Rx#:[id number] Oral 240 250 200 Output: Urine 700 Other: # Voids 1 - Exam GENERAL EXAM: Alert, active, comfortable in no apparent distress. HEAD: Normocephalic. EYES: Normal reaction of pupils, equal size. NOSE: Clear with pink turbinates. THROAT: No erythema or exudates. NECK: No masses, no JVD. CHEST: No chest wall deformity. LUNGS: decreased bilateral air entry, faint inspiratory and expiratory wheezes also noted CVS: S1 and S2 normal with no audible mumurs, regular rhythm. ABDOMEN: No hepatosplenomegaly, normal bowel sounds, no guarding or rigidity. EXTREMITIES: 1-2+ lower extremity edema noted, pedal pulses palpable. SKIN: No rashes CENTRAL NERVOUS SYSTEM: No focal deficits, tone is normal in all 4 extremities. - Labs CBC & Chem 7: 10/29/16 22:15 10/31/16 13:51 Labs: Abnormal Lab Results - Last 24 Hours (Table) 10/31/16 10/31/16 10/31/16 Range/Units 11:37 13:51 16:19 Chloride 97 L (98-107) mmol/L BUN 30 H (9-20) mg/dL Glucose 237 H (74-99) mg/dL POC Glucose (mg/dL) 346 H 461 H (75-99) mg/dL 10/31/16 10/31/16 11/01/16 Range/Units 16:53 20:59 02:01 Chloride (98-107) mmol/L BUN (9-20) mg/dL Glucose (74-99) mg/dL POC Glucose (mg/dL) 455 H 378 H 351 H (75-99) mg/dL 11/01/16 Range/Units 05:57 Chloride (98-107) mmol/L BUN (9-20) mg/dL Glucose (74-99) mg/dL POC Glucose (mg/dL) 396 H (75-99) mg/dL Microbiology - Last 24 Hours (Table) 10/30/16 20:49 Urine Culture - Final Urine,Voided Assessment and Plan Plan: Assessment Probable pneumonia Acute on chronic respiratory failure Acute on chronic systolic congestive heart failure Interstitial lung disease Chronic persistent asthma Elevated troponins Elevated liver enzymes Elevated d-dimer Acute on chronic renal insufficiency Diabetes mellitus Hyperlipidemia Hypertension Supraventricular tachycardia Obstructive sleep apnea with obesity hypoventilation syndrome plan Medications have been reviewed and will be continued as ordered. The patient is known to have an EF of less than 20%. We will continue to monitor his weight and fluid balance. Incentive spirometer initiated and encouraged. Repeat chest x-ray tomorrow. Continue with supportive care, pulmonary hygiene. We will continue to monitor labs/results and make adjustments in treatment as necessary. I performed an examination of the patient and discussed their management with the nurse practitioner. I have reviewed the nurse practitioner's note and agree with the documented findings and plan of care.
[2016-11-01] MEDS ORDERED: INSULIN REGULAR BOLUS (FROM DRIP BAG) IV ONE (10:56)
[2016-11-01] MEDS: ALBUTEROL NEBULIZED 2.5 MG/3 ML INHALATION PRN (11:43)
[2016-11-01 11:56] LABS: Glucose,Whole Blood 516 mg/dL (75-99)
[2016-11-01] MEDS: SACUBITRIL/VALSARTAN 49 MG-51 MG TABLET PO SCH ×2 (12:01→19:54)
[2016-11-01] MEDS: INSULIN REGULAR 100 UNIT in SODIUM CHLORIDE 0.9% 100 ML IV SCH ×2 (12:04→21:46)
[2016-11-01 12:44] LABS: Glucose,Whole Blood 349 mg/dL (75-99)
[2016-11-01 13:13] LABS: Glucose,Whole Blood 266 mg/dL (75-99)
[2016-11-01 13:49] LABS: Glucose,Whole Blood 292 mg/dL (75-99)
--- NOTE | 2016-11-01 13:54 | P.PN ---
Subjective Principal diagnosis: shortness of breath This is a 46-year-old gentleman who follows regularly with Dr. VC Padilla in the office. He has a known history of dilated cardiomyopathy, hypertension, hyperlipidemia, diabetes, morbid obesity, prior AICD implantation , GERD, he presented to the hospital with symptoms of shortness of breath with associated sinus congestion and cough.patient is currently receiving Lasix IV 80 mg twice a day. He continues to diurese well. Continues to have a 1+ peripheral edema, creatinine today 1.00.ataxia 5.3. Blood sugars 508. Objective - Vital Signs Vital signs: Vital Signs Temp 96.4 F L 11/01/16 12:00 Pulse 93 11/01/16 12:00 Resp 18 11/01/16 12:00 BP 120/75 11/01/16 12:00 Pulse Ox 96 11/01/16 12:00 Intake & Output 10/31/16 11/01/16 11/01/16 18:59 06:59 18:59 Intake Total 290 270 369.167 Output Total 700 Balance -410 270 369.167 Weight 133.4 kg Intake: IV 20 145 0.9% NS FLUSH 20 99 Insulin Regular 100 unit 46 In Sodium Chloride 0.9% 100 ml @ Titrate IV .Q0M [facility] Rx#:[id number] Intake, IV Titration 50 24.167 Amount Insulin Regular 100 unit 24.167 In Sodium Chloride 0.9% 100 ml @ Titrate IV .Q0M [facility] Rx#:[id number] cefTRIAXone 1,000 mg In 50 Sodium Chloride 0.9% 50 ml @ 100 mls/hr IVPB Q24HR [facility] Rx#:[id number] Oral 240 250 200 Output: Urine 700 Other: # Voids 1 - Exam PHYSICAL EXAMINATION: HEENT: Head is atraumatic, normocephalic. Pupils equal, round. Neck is supple. There is no elevated jugular venous pressure. HEART EXAMINATION: Heart S1, S2 normal. No murmur or gallop heard. CHEST EXAMINATION: Lungs reveal fine crackles to bilateral bases with diminished air entry to the bases. ABDOMEN: Soft, obese, nontender. Bowel sounds are heard. No organomegaly noted. EXTREMITIES: 2+ peripheral pulses with 1+ evidence of peripheral edema and no calf tenderness noted. NEUROLOGIC patient is awake, alert and oriented -3. - Labs CBC & Chem 7: 10/29/16 22:15 04/06/17 09:24 Labs: Abnormal Lab Results - Last 24 Hours (Table) 10/31/16 10/31/16 10/31/16 Range/Units 13:51 16:19 16:53 Sodium (137-145) mmol/L Potassium (3.5-5.1) mmol/L Chloride 97 L (98-107) mmol/L BUN 30 H (9-20) mg/dL Glucose 237 H (74-99) mg/dL POC Glucose (mg/dL) 461 H 455 H (75-99) mg/dL 10/31/16 11/01/16 11/01/16 Range/Units 20:59 02:01 05:57 Sodium (137-145) mmol/L Potassium (3.5-5.1) mmol/L Chloride (98-107) mmol/L BUN (9-20) mg/dL Glucose (74-99) mg/dL POC Glucose (mg/dL) 378 H 351 H 396 H (75-99) mg/dL 11/01/16 11/01/16 11/01/16 Range/Units 09:24 11:51 12:32 Sodium 133 L (137-145) mmol/L Potassium 5.3 H (3.5-5.1) mmol/L Chloride 95 L (98-107) mmol/L BUN 36 H (9-20) mg/dL Glucose 508 H* (74-99) mg/dL POC Glucose (mg/dL) 516 H 349 H (75-99) mg/dL 11/01/16 11/01/16 Range/Units 13:01 13:37 Sodium (137-145) mmol/L Potassium (3.5-5.1) mmol/L Chloride (98-107) mmol/L BUN (9-20) mg/dL Glucose (74-99) mg/dL POC Glucose (mg/dL) 266 H 292 H (75-99) mg/dL Microbiology - Last 24 Hours (Table) 10/30/16 20:49 Urine Culture - Final Urine,Voided Assessment and Plan Plan: Assessment and plan #1 systolic congestive heart failure acute on chronic. BNP level 1620. Patient has chronic systolic congestive heart failure, was recently started on Entresto in May of last year. Most recent echocardiogram with Doppler study was performed in August which revealed an ejection fraction of less than 20% and #2 possible pneumonia, patient currently receiving IV antibiotics #3 abnormal troponins, patient denies having any chest discomfort. Cardiac catheterization in the past revealed normal coronary arteries. Upon review of patient's multiple prior admissions, he has consistently abnormal troponins. #4 abnormal liver enzymes, likely secondary to congestion. #5 acute on chronic renal insufficiency, creatinine 1.0 #6 diabetes #7 hyperlipidemia #8 hypertension #9 atrial tachycardia #10 abnormal d-dimer, patient was noted to have an abnormal d-dimer in August as well, CT of the chest was performed at that time which was negative for pulmonary embolism. Plan we will continue IV Lasix at 80 mg twice a day, check lytes BUN and creatinine in the morning.initiate insulin drip for more optimal blood sugar control. Check lytes BUN and creatinine in the morning. DNP note has been reviewed, I agree with a documented findings and plan of care. Patient was seen and examined.
[2016-11-01 14:17] LABS: Glucose,Whole Blood 216 mg/dL (75-99)
[2016-11-01] MEDS: POLYETHYLENE GLYCOL 3350 17 GM POWD.PACK PO PRN (14:54)
[2016-11-01 16:16] LABS: Glucose,Whole Blood 183 mg/dL (75-99)
[2016-11-01 16:51] LABS: Glucose,Whole Blood 220 mg/dL (75-99)
[2016-11-01] MEDS: PANTOPRAZOLE 40 MG TABLET PO SCH (17:02)
--- NOTE | 2016-11-01 17:23 | PN ---
46-year-old gentleman who was admitted with CHF acute exacerbation as well as chronic obstructive pulmonary disease, acute exacerbation is being closely monitored at this time. The patient is on steroids. Pulmonary and cardiology following the patient closely. The blood sugars have been elevated up to more than 16. Today this morning the patient started on IV insulin drip at this time. Past medical history reviewed. REVIEW OF SYSTEMS: CARDIOVASCULAR: No angina or palpitations. RESPIRATORY: As mentioned earlier. GASTROINTESTINAL: As mentioned earlier. GENITOURINARY: No dysuria . CENTRAL NERVOUS SYSTEM: No focal deficits. Current medications are reviewed and include: 1. Ventolin 2.5 q.6. 2. DuoNeb q.i.d. and p.r.n. 3. Xanax 0.5 t.i.d. 4. Aspirin 81 mg daily. 5. Lipitor 80 mg daily. 6. Pulmicort 0.5 b.i.d. 7. Rocephin 1 gm daily. 8. Vitamin E 1000 daily. 9. Benadryl 50 mg q.h.s. 10. Colace 100 mg t.i.d. 11. Lasix 80 mg IV b.i.d. 12. Mucinex 600 mg b.i.d. 13. Humalog 17 units a.c. t.i.d. 14. Insulin scale. 15. Claritin 10 mg daily. 16. Lopressor 100 mg t.i.d. 17. Singulair 10 mg 18. Nitrostat 0.4 mg sublingual p.r.n. 19. Zofran 4 mg. 20. Percocet 10 mg. 21. Protonix 40 mg q.h.s. 22. Miralax 8.5 daily. 23. Prednisone 40 mg daily. 24. Entresto b.i.d. 25. Aldactone 25 mg p.o. daily. PHYSICAL EXAMINATION: GENERAL: The patient is alert and oriented times three. Pulse 93, blood pressure 120/74, respirations 18, temperature 96.4, pulse ox 97% on 3 L. HEENT: Conjunctivae normal. Oral mucosa moist. NECK: No jugular venous distention. No carotid bruit. No lymph node enlargement. CARDIOVASCULAR: S1, S2 muffled. RESPIRATORY: Breath sounds diminished at the bases and a few scattered rhonchi and crackles. Expiratory wheezing also present. ABDOMEN: soft, nontender. LEGS: No edema. No swelling. Nervous system: Higher functions as mentioned earlier. No focal deficits. LABORATORY DATA: Accu-Cheks are reviewed 516, 349, 26, 290, 216. WBC 17.5. ABG pH of 7.34, potassium 5.3. ASSESSMENT: 1. Congestive heart failure, acute exacerbation, with acute on chronic systolic dysfunction, ejection fraction 20% with acute hypoxic hypercarbic respiratory failure, status post BiPAP. 2. Asthma, chronic obstructive pulmonary disease acute exacerbation with acute purulent tracheobronchitis. 3. Diabetes mellitus type 2, uncontrolled on IV insulin drip. 4. Increased creatinine with possible acute renal failure, multifactorial, possible prerenal factors. 5. Troponin 0.207, rule out acute non-ST segment myocardial infarction. 6. Acute respiratory acidosis, mild. 7. Increased WBC. 8. Increased d-dimer. 9. History of Type 2 diabetes mellitus. 10. History of gastroesophageal reflux disease. 11. Hypertension, essential. 12. Hyperlipidemia. 13. History of sleep apnea on CPAP. 14. History of supraventricular tachycardia. 15. History of cardiomyopathy. 16. History of automatic implantable cardioverter defibrillator. 17. History of degenerative joint disease and back surgery. 18. History of cardiac catheterization. 19. History of motion sickness. 21. History of continued ongoing nicotine dependence. 22. History of noncompliance. 23. Obesity with body mass index 42. 24. FULL CODE. RECOMMENDATIONS AND DISCUSSION: Recommend to continue the current medications. Continue symptomatic treatment. IV insulin drip has been initiated. I would also recommend initiating home dose of insulin, Lantus 30 units today and initiate cut down the dose of steroids. Tighter titrate the home dose of insulin. The prognosis is guarded because of multiple complex medical issues. Further recommendations to follow. See orders for details. Discussed at length with the staff. Discussed with the patient. Further recommendations to follow. MTDD
[2016-11-01 18:20] LABS: Glucose,Whole Blood 201 mg/dL (75-99)
[2016-11-01] MEDS: MONTELUKAST 10 MG TAB PO SCH (19:54)
[2016-11-01 20:04] LABS: Glucose,Whole Blood 224 mg/dL (75-99)
[2016-11-01 21:55] LABS: Glucose,Whole Blood 200 mg/dL (75-99)
[2016-11-02 00:13] LABS: Glucose,Whole Blood 202 mg/dL (75-99)
[2016-11-02] MEDS: oxyCODONE-APAP 10-325MG 1 EACH TAB PO PRN ×4 (02:00→22:19)
[2016-11-02 02:03] LABS: Glucose,Whole Blood 170 mg/dL (75-99)
[2016-11-02 04:01] LABS: Glucose,Whole Blood 190 mg/dL (75-99)
[2016-11-02 05:59] LABS: Glucose,Whole Blood 131 mg/dL (75-99)
[2016-11-02 06:42] LABS: Anion Gap 9 mmol/L; Blood Urea Nitrogen 33 mg/dL (9-20); Calcium 9.4 mg/dL (8.4-10.2); Carbon Dioxide 32 mmol/L (22-30); Chloride 96 mmol/L (98-107); Glucose 118 mg/dL (74-99); Non-African American GFR(MDRD) >60 (>60 ml/min/1.73 sqM); Potassium 4.4 mmol/L (3.5-5.1); Sodium 137 mmol/L (137-145)
[2016-11-02] MEDS: INSULIN LISPRO (humaLOG) 300 UNIT/3 ML VIAL SQ SCH ×5 (06:58→22:05)
[2016-11-02 07:30] LABS: Glucose,Whole Blood 107 mg/dL (75-99)
[2016-11-02] MEDS: BUDESONIDE 0.5 MG/2 ML NEBU INHALATION SCH ×2 (07:31→21:16)
[2016-11-02] MEDS: ALPRAZolam 0.25 MG TAB PO PRN ×3 (08:09→22:20)
[2016-11-02 08:27] LABS: Glucose,Whole Blood 144 mg/dL (75-99)
[2016-11-02] MEDS: LACTULOSE 20 GM/30 ML CUP PO SCH ×5 (08:34→23:43)
[2016-11-02] MEDS: ATORVASTATIN 80 MG TAB PO SCH (08:35)
[2016-11-02] MEDS: ASPIRIN 81 MG CHEW PO SCH (08:35)
[2016-11-02] MEDS: LORATADINE 10 MG TAB PO SCH (08:36)
[2016-11-02] MEDS: guaiFENesin 600 MG TABLET.ER PO SCH ×2 (08:36→22:05)
[2016-11-02] MEDS: predniSONE 20 MG TAB PO SCH (08:37)
[2016-11-02] MEDS: SACUBITRIL/VALSARTAN 49 MG-51 MG TABLET PO SCH ×2 (08:38→22:05)
[2016-11-02] MEDS: SPIRONOLACTONE 25 MG TAB PO SCH (08:38)
[2016-11-02] MEDS: FUROSEMIDE 10 MG/ML 10 ML VIAL IV SCH (08:41)
[2016-11-02] MEDS ORDERED: CHOLECALCIFEROL 1,000 UNIT TAB PO SCH (09:00)
[2016-11-02] MEDS: METOPROLOL TARTRATE 50 MG TAB PO SCH ×3 (09:16→22:05)
[2016-11-02 10:11] LABS: Glucose,Whole Blood 173 mg/dL (75-99)
[2016-11-02] MEDS: ALBUTEROL NEBULIZED 2.5 MG/3 ML INHALATION PRN (11:06)
[2016-11-02] MEDS: INSULIN GLARGINE 100 UNIT/ML 10 ML VIAL SQ SCH ×2 (12:05→12:09)
[2016-11-02 12:10] LABS: Glucose,Whole Blood 137 mg/dL (75-99)
--- NOTE | 2016-11-02 13:25 | P.PN ---
Subjective This is a 46-year-old male being evaluated and examined today on the sixth floor. The patient came into the emergency room by ambulance on CPAP. According to the ambulance crew the patient's pulse ox was 88% on room air and his heart rate was in the 170s, and respiratory rate was in the mid 30s. The patient was using accessory muscles as well. The patient was then converted to BiPAP in the emergency room as he continued to complain of shortness of breath and pleuritic chest pain with diaphoresis. the patient's EKG in the emergency room showed supraventricular tachycardia. The patient's lab also revealed an elevated d-dimer of 1.60, a VQ scan was completed and there was no pulmonary embolism. The patient is also known to have a EF of only about 20%. the patient does have a history of obstructive sleep apnea however does not wear CPAP or BiPAP at home. The patient also was noted to have some significant weight gain in the last few days, increased edema in his legs along with his dyspnea. The patient is also known to have a history of myocardial infarction as well as a AICD, hypertension, cardiomyopathy, heart congestive heart failure , and COPD. Upon examination the patient is resting up in bed on 3 L of oxygen via nasal cannula, and becomes short of breath with exertion. However this has improved over the last day. Patient does go back in forth between wearing oxygen and taking it off. Patient will be evaluated when ambulating to see if he requires oxygen. Patient is ambulating more frequently today, incentive spirometer was initiated and he is pulling volumes of 2200. Objective - Vital Signs Vital signs: Vital Signs Temp 96.8 F L 11/02/16 08:00 Pulse 90 11/02/16 11:18 Resp 18 11/02/16 08:00 BP 98/61 11/02/16 08:00 Pulse Ox 94 L 11/02/16 08:00 Intake & Output 11/01/16 11/02/16 11/02/16 18:59 06:59 18:59 Intake Total 949.350 424.200 558.242 Balance 949.350 424.200 558.242 Weight 134.2 kg Intake: IV 145 50 0.9% NS FLUSH 99 10 Insulin Regular 100 unit 46 40 In Sodium Chloride 0.9% 100 ml @ Titrate IV .Q0M [facility] Rx#:[id number] Intake, IV Titration 64.350 74.200 18.242 Amount Insulin Regular 100 unit 64.350 74.200 18.242 In Sodium Chloride 0.9% 100 ml @ Titrate IV .Q0M [facility] Rx#:[id number] Oral 740 300 540 Other: # Voids 1 - Exam GENERAL EXAM: Alert, active, comfortable in no apparent distress. HEAD: Normocephalic. EYES: Normal reaction of pupils, equal size. NOSE: Clear with pink turbinates. THROAT: No erythema or exudates. NECK: No masses, no JVD. CHEST: No chest wall deformity. LUNGS: decreased bilateral air entry, faint inspiratory and expiratory wheezes also noted CVS: S1 and S2 normal with no audible mumurs, regular rhythm. ABDOMEN: No hepatosplenomegaly, normal bowel sounds, no guarding or rigidity. EXTREMITIES: 1-2+ lower extremity edema noted, pedal pulses palpable. SKIN: No rashes CENTRAL NERVOUS SYSTEM: No focal deficits, tone is normal in all 4 extremities. - Labs CBC & Chem 7: 10/29/16 22:15 11/02/16 05:41 Labs: Abnormal Lab Results - Last 24 Hours (Table) 11/01/16 11/01/16 11/01/16 Range/Units 13:37 14:05 16:04 Chloride (98-107) mmol/L Carbon Dioxide (22-30) mmol/L BUN (9-20) mg/dL Glucose (74-99) mg/dL POC Glucose (mg/dL) 292 H 216 H 183 H (75-99) mg/dL 11/01/16 11/01/16 11/01/16 Range/Units 16:34 18:07 20:02 Chloride (98-107) mmol/L Carbon Dioxide (22-30) mmol/L BUN (9-20) mg/dL Glucose (74-99) mg/dL POC Glucose (mg/dL) 220 H 201 H 224 H (75-99) mg/dL 11/01/16 11/02/16 11/02/16 Range/Units 21:53 00:00 02:01 Chloride (98-107) mmol/L Carbon Dioxide (22-30) mmol/L BUN (9-20) mg/dL Glucose (74-99) mg/dL POC Glucose (mg/dL) 200 H 202 H 170 H (75-99) mg/dL 11/02/16 11/02/16 11/02/16 Range/Units 03:59 05:41 05:57 Chloride 96 L (98-107) mmol/L Carbon Dioxide 32 H (22-30) mmol/L BUN 33 H (9-20) mg/dL Glucose 118 H (74-99) mg/dL POC Glucose (mg/dL) 190 H 131 H (75-99) mg/dL 11/02/16 11/02/16 11/02/16 Range/Units 07:29 08:14 09:59 Chloride (98-107) mmol/L Carbon Dioxide (22-30) mmol/L BUN (9-20) mg/dL Glucose (74-99) mg/dL POC Glucose (mg/dL) 107 H 144 H 173 H (75-99) mg/dL 11/02/16 Range/Units 12:00 Chloride (98-107) mmol/L Carbon Dioxide (22-30) mmol/L BUN (9-20) mg/dL Glucose (74-99) mg/dL POC Glucose (mg/dL) 137 H (75-99) mg/dL Assessment and Plan Plan: Assessment Probable pneumonia Acute on chronic respiratory failure Acute on chronic systolic congestive heart failure Interstitial lung disease Chronic persistent asthma Elevated troponins Elevated liver enzymes Elevated d-dimer Acute on chronic renal insufficiency Diabetes mellitus Hyperlipidemia Hypertension Supraventricular tachycardia Obstructive sleep apnea with obesity hypoventilation syndrome plan Medications have been reviewed and will be continued as ordered. The patient is known to have an EF of less than 20%. We will continue to monitor his weight and fluid balance. Incentive spirometer initiated and encouraged. Repeat chest x-ray pending. Continue with insulin drip as ordered. Continue with supportive care, pulmonary hygiene. We will continue to monitor labs/ results and make adjustments in treatment as necessary. I performed an examination of the patient and discussed their management with the nurse practitioner. I have reviewed the nurse practitioner's note and agree with the documented findings and plan of care.
--- NOTE | 2016-11-02 13:29 | XR ---
EXAMINATION TYPE: XR chest 2V DATE OF EXAM: 11/02/2016 1:23 PM COMPARISON: 10/29/2016 TECHNIQUE: PA and lateral views submitted. HISTORY: Shortness of breath FINDINGS: Heart is enlarged and there is a cardiac device. Mild interstitial prominence seen with tiny bilatera l effusions. No consolidative process. Arthropathy of the shoulders seen. Degenerative change of the spine. Hyperinflation suggests COPD. IMPRESSION: 1. Mild venous congestion with tiny right-sided pleural effusion. Correlate clinically. Findings appe ar improved from the exam of 10/29/2016
[2016-11-02 14:17] LABS: Glucose,Whole Blood 132 mg/dL (75-99)
--- NOTE | 2016-11-02 15:21 | P.PN ---
Subjective Principal diagnosis: Shortness of breath This is a 46-year-old gentleman who follows regularly with Dr. VC Padilal in the office. He has a known history of dilated cardiomyopathy, hypertension, hyperlipidemia, diabetes, morbid obesity, prior AICD implantation , GERD. He presents to the hospital symptoms of shortness of breath with associated sinus congestion and cough. Patient has been receiving Lasix IV 80 mg every 12 hours and has diuresed well. His Entresto has been resumed. On examination today, patient is feeling well, breathing better and edema has decreased. Patient has been on insulin drip due to elevated glucose of 508 yesterday. Objective - Vital Signs Vital signs: Vital Signs Temp 98.2 F 11/02/16 12:00 Pulse 88 11/02/16 12:00 Resp 18 11/02/16 12:00 BP 115/69 11/02/16 12:00 Pulse Ox 95 11/02/16 12:00 Intake & Output 11/01/16 11/02/16 11/02/16 18:59 06:59 18:59 Intake Total 949.350 667.285 6059.242 Balance 949.350 929.051 3149.242 Weight 134.2 kg Intake: IV 612 16 6500 0.9% NS FLUSH 99 10 1403 Insulin Regular 100 unit 46 40 In Sodium Chloride 0.9% 100 ml @ Titrate IV .Q0M [facility] Rx#:[id number] Intake, IV Titration 64.350 74.200 18.242 Amount Insulin Regular 100 unit 64.350 74.200 18.242 In Sodium Chloride 0.9% 100 ml @ Titrate IV .Q0M [facility] Rx#:[id number] Oral 740 300 780 Other: # Voids 1 - Exam PHYSICAL EXAMINATION: HEENT: Head is atraumatic, normocephalic. Pupils equal, round. Neck is supple. There is no elevated jugular venous pressure. HEART EXAMINATION: Heart sounds regular, S1 and S2 normal. No murmur or gallop heard. CHEST EXAMINATION: Lungs are clear to auscultation and precussion. No chest wall tenderness is noted on palpation or with deep breathing. ABDOMEN: Soft, nontender. Bowel sounds are heard. No organomegaly noted. EXTREMITIES: 2+ peripheral pulses with evidence of trace peripheral edema and no calf tenderness noted. NEUROLOGIC patient is awake, alert and oriented x3. . - Labs CBC & Chem 7: 10/29/16 22:15 11/02/16 05:41 Labs: Abnormal Lab Results - Last 24 Hours (Table) 11/01/16 11/01/16 11/01/16 Range/Units 16:04 16:34 18:07 Chloride (98-107) mmol/L Carbon Dioxide (22-30) mmol/L BUN (9-20) mg/dL Glucose (74-99) mg/dL POC Glucose (mg/dL) 183 H 220 H 201 H (75-99) mg/dL 11/01/16 11/01/16 11/02/16 Range/Units 20:02 21:53 00:00 Chloride (98-107) mmol/L Carbon Dioxide (22-30) mmol/L BUN (9-20) mg/dL Glucose (74-99) mg/dL POC Glucose (mg/dL) 224 H 200 H 202 H (75-99) mg/dL 11/02/16 11/02/16 11/02/16 Range/Units 02:01 03:59 05:41 Chloride 96 L (98-107) mmol/L Carbon Dioxide 32 H (22-30) mmol/L BUN 33 H (9-20) mg/dL Glucose 118 H (74-99) mg/dL POC Glucose (mg/dL) 170 H 190 H (75-99) mg/dL 11/02/16 11/02/16 11/02/16 Range/Units 05:57 07:29 08:14 Chloride (98-107) mmol/L Carbon Dioxide (22-30) mmol/L BUN (9-20) mg/dL Glucose (74-99) mg/dL POC Glucose (mg/dL) 131 H 107 H 144 H (75-99) mg/dL 11/02/16 11/02/16 11/02/16 Range/Units 09:59 12:00 14:06 Chloride (98-107) mmol/L Carbon Dioxide (22-30) mmol/L BUN (9-20) mg/dL Glucose (74-99) mg/dL POC Glucose (mg/dL) 173 H 137 H 132 H (75-99) mg/dL Assessment and Plan Plan: Assessment and plan #1 systolic congestive heart failure acute on chronic. BNP level MDCXX. Most recent echocardiogram with Doppler from August shows an ejection fraction of less than 20%. On Entresto currently #2 possible pneumonia #3 elevated troponin levels, similar to previous admissions #4 abnormal liver enzymes, likely secondary to congestion #5 diabetes mellitus #6 hyperlipidemia #7 hypertension At this time we'll stop IV Lasix and start Lasix 80 mg by mouth twice a day. Continue to monitor renal function and electrolytes. We will start the patient on Lantus protocol along with sliding scale coverage and discontinue insulin drip. Increase the patient's activity. We anticipate the patient to be discharged within the next 24 hours. PRODUCTION LEAD note has been reviewed, I agree with a documented findings and plan of care. Patient was seen and examined.
[2016-11-02] MEDS: FUROSEMIDE 80 MG TAB PO SCH (15:45)
[2016-11-02 16:35] LABS: Glucose,Whole Blood 151 mg/dL (75-99)
[2016-11-02] MEDS: PANTOPRAZOLE 40 MG TABLET PO SCH (17:24)
[2016-11-02 20:38] LABS: Glucose,Whole Blood 190 mg/dL (75-99)
[2016-11-02] MEDS: IPRATROPIUM-ALBUTEROL 3 ML NEB INHALATION PRN (21:16)
--- NOTE | 2016-11-02 21:29 | PN ---
DATE OF SERVICE: 11/02/2016 This 46-year-old gentleman who was admitted with CHF, acute exacerbation, also had asthma and COPD. The patient was also complaining of constipation. Cardiology and Pulmonology are following the patient closely. No fever. No cough. On exam, alert and oriented x3. Pulse is 88, blood pressure 115/69, respiration 18, temperature 98.2, pulse ox 94% on room air. HEENT: Conjunctivae normal. NECK: No jugular venous distention. CARDIOVASCULAR SYSTEM: S1, S2 muffled. RESPIRATORY SYSTEM: Breath sounds diminished at the bases. Bilateral scattered rhonchi and crackles. ABDOMEN: Soft, non-tender. LEGS: No edema. No swelling. NERVOUS SYSTEM: No focal deficit. LABS: Sodium 137, potassium 4.4. ASSESSMENT: 1. Congestive heart failure, acute exacerbation, with acute on chronic systolic dysfunction, ejection fraction 20%, with acute hypoxic hypercarbic respiratory failure, status post BiPAP. 2. Asthma and chronic obstructive pulmonary disease, acute exacerbation, with acute purulent tracheobronchitis. 3. Diabetes mellitus, type 2, uncontrolled, on IV insulin drip. 4. Increased creatinine with possible acute renal failure, multifactorial; possibly prerenal factors. 5. Troponin 0.207. Rule out [id number]-elevation myocardial infarction. 6. Acute respiratory acidosis, mild, present on admission. 7. Increased white count. 8. ( ) 9. Increased D-dimer. 10. History of diabetes mellitus, type 2. 11. History of gastroesophageal reflux disease. 12. Hypertension, essential. 13. Hyperlipidemia. 14. History of sleep apnea, on CPAP. 15. History of supraventricular tachycardia. 16. History of cardiomyopathy. 17. History of automatic implantable cardioverter defibrillator. 18. History of degenerative joint disease and back surgery. 19. History of cardiac catheterization. 20. History of motion sickness. 21. History of continued ongoing nicotine dependence. 22. History of noncompliance. 23. Obesity with body mass index of 42. 24. FULL CODE. RECOMMENDATIONS AND DISCUSSION: I recommend to continue with the current medications, continue with the monitoring, symptomatic treatment. Otherwise, at this time I recommend lactulose for the constipation. Follow closely with Cardiology and Pulmonology. Oral Lasix. Increase ambulation. Guarded prognosis. Further recommendations to follow.
[2016-11-02] MEDS: MONTELUKAST 10 MG TAB PO SCH (22:05)
[2016-11-03] MEDS: LACTULOSE 20 GM/30 ML CUP PO SCH ×3 (03:42→11:20)
[2016-11-03 06:11] LABS: Glucose,Whole Blood 189 mg/dL (75-99)
[2016-11-03] MEDS: INSULIN LISPRO (humaLOG) 300 UNIT/3 ML VIAL SQ SCH ×4 (07:00→12:31)
[2016-11-03] MEDS: BUDESONIDE 0.5 MG/2 ML NEBU INHALATION SCH (07:56)
[2016-11-03] MEDS: ALBUTEROL NEBULIZED 2.5 MG/3 ML INHALATION PRN (07:56)
[2016-11-03] MEDS: ASPIRIN 81 MG CHEW PO SCH (08:44)
[2016-11-03] MEDS: ATORVASTATIN 80 MG TAB PO SCH (08:44)
[2016-11-03] MEDS: predniSONE 20 MG TAB PO SCH (08:45)
[2016-11-03] MEDS: SPIRONOLACTONE 25 MG TAB PO SCH (08:45)
[2016-11-03] MEDS: FUROSEMIDE 80 MG TAB PO SCH (08:45)
[2016-11-03] MEDS: guaiFENesin 600 MG TABLET.ER PO SCH (08:46)
[2016-11-03] MEDS: METOPROLOL TARTRATE 50 MG TAB PO SCH (08:46)
[2016-11-03] MEDS: SACUBITRIL/VALSARTAN 49 MG-51 MG TABLET PO SCH (08:46)
[2016-11-03] MEDS: LORATADINE 10 MG TAB PO SCH (08:47)
[2016-11-03] MEDS: oxyCODONE-APAP 10-325MG 1 EACH TAB PO PRN ×2 (08:51→14:42)
[2016-11-03] MEDS: ALPRAZolam 0.25 MG TAB PO PRN (08:52)
[2016-11-03 12:05] LABS: Glucose,Whole Blood 252 mg/dL (75-99)
--- NOTE | 2016-11-03 12:54 | P.PN ---
Subjective Principal diagnosis: Shortness of breath This is a 46-year-old gentleman who follows regularly with Dr. VC Padilla in the office. He has a known history of dilated cardiomyopathy, hypertension, hyperlipidemia, diabetes, morbid obesity, prior AICD implantation , GERD. He presents to the hospital symptoms of shortness of breath with associated sinus congestion and cough. Patient has been receiving by mouth Lasix. His Entresto has been resumed. On examination today, patient is feeling well, breathing better and edema has decreased. Patient has been off insulin drip with adequate control of blood sugars. He is anxious to go home. Objective - Vital Signs Vital signs: Vital Signs Temp 97.1 F L 11/03/16 08:00 Pulse 75 11/03/16 08:12 Resp 18 11/03/16 08:00 BP 109/66 11/03/16 08:00 Pulse Ox 98 11/03/16 08:00 Intake & Output 11/02/16 11/03/16 11/03/16 18:59 06:59 18:59 Intake Total 3401.242 610 Balance 3401.242 610 Weight 132.2 kg Intake: IV 1403 10 0.9% NS FLUSH 1403 10 Intake, IV Titration 18.242 Amount Insulin Regular 100 unit 18.242 In Sodium Chloride 0.9% 100 ml @ Titrate IV .Q0M [facility] Rx#:[id number] Oral 1980 600 Other: # Voids 3 - Exam PHYSICAL EXAMINATION: HEENT: Head is atraumatic, normocephalic. Pupils equal, round. Neck is supple. There is no elevated jugular venous pressure. HEART EXAMINATION: Heart sounds regular, S1 and S2 normal. No murmur or gallop heard. CHEST EXAMINATION: Lungs are clear to auscultation and precussion. No chest wall tenderness is noted on palpation or with deep breathing. ABDOMEN: Soft, nontender. Bowel sounds are heard. No organomegaly noted. EXTREMITIES: 2+ peripheral pulses with evidence of trace peripheral edema and no calf tenderness noted. NEUROLOGIC patient is awake, alert and oriented x3. . - Labs CBC & Chem 7: 10/29/16 22:15 11/02/16 05:41 Labs: Abnormal Lab Results - Last 24 Hours (Table) 11/02/16 11/02/16 11/02/16 Range/Units 14:06 16:33 20:37 POC Glucose (mg/dL) 132 H 151 H 190 H (75-99) mg/dL 11/03/16 11/03/16 Range/Units 06:08 12:02 POC Glucose (mg/dL) 189 H 252 H (75-99) mg/dL Assessment and Plan Plan: Assessment and plan #1 systolic congestive heart failure acute on chronic. BNP level MDCXX. Most recent echocardiogram with Doppler from August shows an ejection fraction of less than 20%. On Entresto currently #2 possible pneumonia #3 elevated troponin levels, similar to previous admissions #4 abnormal liver enzymes, likely secondary to congestion #5 diabetes mellitus #6 hyperlipidemia #7 hypertension From cardiology perspective, patient is stable for discharge home today. He'll follow-up with Dr. VC Padilla in the office in 2 weeks. Patient will be discharged home on current insulin orders. Continue aspirin 81 mg by mouth daily, statin, Lasix 80 mg by mouth twice a day, metoprolol 100 mg by mouth 3 times a day, Aldactone 25 mg by mouth daily and Entresto 49/51 mg one tablet by mouth twice a day. MANAGER ART note has been reviewed, I agree with a documented findings and plan of care. Patient was seen and examined.
--- NOTE | 2016-11-03 14:54 | PN ---
This is a 46-year-old male who was seen, evaluated, examined. Clinically patient is doing slightly better. Cough, congestion, shortness of breath and wheezing have improved significantly. His hemodynamic status is stable. His last chest x-ray performed yesterday has been reviewed and revealed interstitial edema, small right-sided pleural effusion. X-ray has been compared with 10/29/16 significant improvement has been noted. On examination, his most recent vitals include blood pressure is 110/66, respiratory rate 18, pulse 87, temperature 98, saturation 98% on room air. HEENT: Atraumatic, normocephalic. Pharynx is clear without exudate. NECK: Supple without lymphadenopathy, jugular venous distention or carotid bruit. LUNGS: Bilateral good air entry is present without significant rales, rhonchi, or rub. HEART: Regular rate and rhythm. S1 and S2 audible. ABDOMEN: Soft. No rebound or rigidity. EXTREMITIES: +1 peripheral pulses. NEUROLOGICAL EXAMINATION: Otherwise, awake and alert. IMPRESSION: 1. Acute hypoxic respiratory failure. 2. Related to multifactorial process including pneumonia as well as acute exacerbation of congestive heart failure likely chronic cardiomyopathy and chronic systolic heart failure. 3. Obesity hypoventilation or obstructive sleep apnea to be evaluated further on outpatient basis. 4. Interstitial lung disease may be secondary due to cardiovascular disease with apparent finding of that, we will further evaluate with pulmonary function testing on outpatient basis. From pulmonary standpoint, patient can be switched to maintain oral prednisone for another week to 10 day with slow taper and oral antibiotics like Ceftin and can be discharged home with followup in outpatient setting.
[2016-11-03 15:04] VITALS: BP 144/65; PULSE 74; TEMP 98
--- NOTE | 2016-11-04 15:26 | DS ---
DATE OF ADMISSION: 10/30/2016 DATE OF DISCHARGE: 11/03/2016 FINAL DIAGNOSES: 1. Congestive heart failure, acute exacerbation, acute on chronic systolic dysfunction, ejection fraction of 20% with acute hypoxic respiratory failure, hypoxic hypercarbic respiratory failure status post BiPAP. 2. Asthma, chronic obstructive pulmonary disease, acute exacerbation, with acute purulent tracheobronchitis. 3. Diabetes mellitus type 2, uncontrolled on IV insulin drip. 4. Increased creatinine with possible acute renal failure, multifactorial, possibly prerenal factors. 5. Troponin 0.020, indeterminate, similar levels as previously according to Cardiology. 6. Acute respiratory acidosis, mild, present on admission. 7. Increased WBC. 8. Increased d-dimer. 9. History of diabetes type 2. 10. History of gastroesophageal reflux disease. 11. Hypertension, essential. 12. Hyperlipidemia. 13. History of sleep apnea on CPAP. 14. Supraventricular tachycardia history. 15. History of cardiomyopathy. 16. Automatic implantable cardiovascular defibrillator. 17. History of degenerative joint disease and back surgery. 18. History of cardiac catheterization. 19. History of motion sickness. 20. History of continued ongoing nicotine dependence. 21. History of noncompliance. 22. Obesity with body mass index of 42. 23. FULL CODE. DISCHARGE DISPOSITION: The patient will be discharged in a stable condition with guarded prognosis. Total time taken 35 minutes. HISTORY OF PRESENT ILLNESS: This 46-year-old gentleman with a past history of CHF acute exacerbation, as well as asthma and chronic obstructive pulmonary acute exacerbation also. Also the patient had acute purulent tracheobronchitis. The patient was treated with bronchodilators and antibiotics. Troponins were noted, but Pulmonary saw the patient and cleared the patient for discharge and chest x-ray was stable. On exam, vitals are stable. CARDIOVASCULAR: S1, S2. RESPIRATORY: Breath sounds diminished at bases. a few scattered rhonchi. ABDOMEN: Soft, nontender. DISCHARGE ADVICE: 1. Diet is cardiac. 2. Activity limited until follow-up. 3. Follow-up with Dr. Hunter Romano in 1 to 2 days. 4. Follow up with Dr. Elroy Romero in one week. 5. Follow-up with Dr. Amanda Padilla in 2 weeks. Medications are as below: 1. ProAir HFA 2 puffs q.i.d. p.r.n. 2. Aspirin 81 mg daily. 3. Lipitor 80 mg p.o. daily. 4. Ceftin 500 mg p.o. b.i.d. for 5 days. 5. Vitamin D3, 1000 daily Saturday. 6. Colace 100 mg p.o. t.i.d. Hold if the patient has diarrhea. 7. Advair 1 puff b.i.d. 8. Lasix 80 mg p.o. b.i.d. 9. Humalog scale as before. 10. Lantus 70 units subcu b.i.d. 11. Albuterol 3 mL q.i.d. and p.r.n. 12. Claritin 10 mg p.o. daily. 13. Lopressor 100 mg p.o. b.i.d. 14. Singulair 10 mg p.o. q.h.s. 15. Prilosec 20 mg a.c. supper. 16. MiraLAX 8.5 mg p.o. daily. 17. Entresto 49/51, 1 p.o. b.i.d. 18. Aldactone 25 mg p.o. daily. 19. Benadryl 50 mg q.h.s. p.r.n. 20. Mucinex 600 mg p.o. b.i.d. 21. Oxycodone 1 tablet p.o. in the morning. 22. Prednisone taper that is 40 mg daily for 3 days, 30 for 3 days, 20 for 3 days, 10 for 3 days and then stop. Once again, the patient will be discharged in stable condition with guarded prognosis.
== END 2016-11-03 16:24 | disposition home or self-care (01) | DRG 291 ==
LOC: EC 21:55 → 6ICU 10-30 00:18 → 6SEL 10-30 03:02
PROVIDERS: ADMIT Hospitalist; ATTEND Hospitalist
DX: I13.0 Hypertensive heart and chronic kidney disease with heart failure and stage 1 through stage 4 chronic kidney disease, or unspecified chronic kidney disease (principal); I50.23 Acute on chronic systolic (congestive) heart failure; J96.21 Acute and chronic respiratory failure with hypoxia; N17.9 Acute kidney failure, unspecified; J96.22 Acute and chronic respiratory failure with hypercapnia; E87.2 Acidosis; J44.0 Chronic obstructive pulmonary disease with (acute) lower respiratory infection; E66.2 Morbid (severe) obesity with alveolar hypoventilation; I47.1 Supraventricular tachycardia; J44.1 Chronic obstructive pulmonary disease with (acute) exacerbation; Z68.41 Body mass index [BMI] 40.0-44.9, adult; E11.22 Type 2 diabetes mellitus with diabetic chronic kidney disease; I42.0 Dilated cardiomyopathy; E11.65 Type 2 diabetes mellitus with hyperglycemia; E78.5 Hyperlipidemia, unspecified; F17.200 Nicotine dependence, unspecified, uncomplicated; F41.9 Anxiety disorder, unspecified; I25.10 Atherosclerotic heart disease of native coronary artery without angina pectoris; I25.5 Ischemic cardiomyopathy; J45.909 Unspecified asthma, uncomplicated; J84.10 Pulmonary fibrosis, unspecified; J20.9 Acute bronchitis, unspecified; K21.9 Gastro-esophageal reflux disease without esophagitis; K59.00 Constipation, unspecified; N18.9 Chronic kidney disease, unspecified; Z79.4 Long term (current) use of insulin; I25.2 Old myocardial infarction; Z79.82 Long term (current) use of aspirin; Z79.899 Other long term (current) drug therapy; Z91.14 Patient's other noncompliance with medication regimen; Z91.19 Patient's noncompliance with other medical treatment and regimen; Z95.810 Presence of automatic (implantable) cardiac defibrillator
CPT/HCPCS: 36415; 36600; 71010; 71020; 74000; 78582; 80048; 80053; 80061; 81003; 82550; 82553; 82805; 83036; 83880; 84484; 85025; 85379; 85610; 85730; 87086; 87502; 93005; 94640; 94660; 94760; 96361; 96365; 96366; 96367; 96368; 96372; 96374; 96375; 96376; 99291

== ENCOUNTER 2018-03-28 04:38 | Inpatient (IN) | payer MEDICARE ==
[2018-03-28] MEDS ORDERED: ALBUTEROL NEBULIZED 2.5 MG/3 ML INHALATION STA (04:43)
[2018-03-28] MEDS ORDERED: MORPHINE SULFATE 4 MG/ML SYRINGE IV STA (04:45)
[2018-03-28] MEDS ORDERED: INSULIN REGULAR 100 UNIT/ML VIAL SQ STA (04:45)
[2018-03-28] MEDS ORDERED: LORazepam 2 MG/ML INJ IV STA (04:45)
[2018-03-28] MEDS ORDERED: methylPREDNISolone SOD SUCCI 125 MG/2 ML VIAL IV STA (04:46)
[2018-03-28] MEDS ORDERED: FUROSEMIDE 10 MG/ML 4 ML VIAL IV STA (04:50)
[2018-03-28 04:57] LABS: Basophils # (A) 0.2 k/uL (0-0.2); Basophils % (A) 1 %; Eosinophils # (A) 0.5 k/uL (0-0.7); Eosinophils % (A) 2 %; HCT 45.1 % (39.0-53.0); HGB 13.5 gm/dL (13.0-17.5); Hypochromasia Moderate; Lymphocytes # (A) 3.9 k/uL (1.0-4.8); Lymphocytes % (A) 21 %; MCH 28.6 pg (25.0-35.0); MCHC 29.8 g/dL (31.0-37.0); Mean Platelet Volume 8.7; Monocytes # (A) 0.7 k/uL (0-1.0); Monocytes % (A) 4 %; Neutrophils # (A) 13.5 k/uL (1.3-7.7); Neutrophils % (A) 71 %; Platelet Count 254 k/uL (150-450); RDW 13.1 % (11.5-15.5)
[2018-03-28] MEDS ORDERED: NITROGLYCERIN-D5W PMX 50 MG in DEXTROSE/WATER 1 250ML.BAG IV ONE (05:00)
--- NOTE | 2018-03-28 05:03 | XR ---
EXAM: XR Chest, 1 View CLINICAL HISTORY: ITS.REASON XR Reason: dyspnea TECHNIQUE: Frontal view of the chest. COMPARISON: 11/02/16 x-ray IMPRESSION: Cardiomegaly. Diffuse interstitial thickening likely representing pulmonary edema. There may be some element of subsegmental atelectasis.
[2018-03-28 05:05] LABS: Glucose,Whole Blood >600 mg/dL (75-99)
[2018-03-28 05:09] LABS: ALT 66 U/L (21-72); AST 159 U/L (17-59); Albumin 3.4 g/dL (3.5-5.0); Alkaline Phosphatase 103 U/L (38-126); Anion Gap 14 mmol/L; Blood Urea Nitrogen 14 mg/dL (9-20); Calcium 9.1 mg/dL (8.4-10.2); Carbon Dioxide 20 mmol/L (22-30); Chloride 103 mmol/L (98-107); Magnesium 2.3 mg/dL (1.6-2.3); Potassium 4.2 mmol/L (3.5-5.1); Sodium 137 mmol/L (137-145); Total Bilirubin 0.4 mg/dL (0.2-1.3); Total Protein 5.8 g/dL (6.3-8.2)
[2018-03-28 05:19] LABS: INR 0.9 (<1.2); Prothrombin Time 9.5 sec (9.0-12.0)
[2018-03-28 05:23] LABS: Glucose 660 mg/dL (74-99); Partial Thromboplastin Time 21.2 sec (22.0-30.0)
[2018-03-28 05:24] LABS: Creatine Kinase MB 1.1 ng/mL (0.0-2.4)
[2018-03-28 05:27] LABS: Troponin I 0.078 ng/mL (0.000-0.034)
[2018-03-28 05:30] LABS: Glucose,Whole Blood >600 mg/dL (75-99)
[2018-03-28] MEDS ORDERED: POLYETHYLENE GLYCOL 3350 17 GM POWD.PACK PO PRN (05:46)
[2018-03-28] MEDS ORDERED: ALBUTEROL NEBULIZED 2.5 MG/3 ML INHALATION PRN (05:46)
[2018-03-28 05:56] LABS: Glucose,Whole Blood 570 mg/dL (75-99)
[2018-03-28] MEDS ORDERED: FUROSEMIDE 10 MG/ML 4 ML VIAL IV SCH (06:00)
--- NOTE | 2018-03-28 06:32 | ED ---
SOB HPI - General Chief Complaint: Shortness of Breath Stated Complaint: RAGHU Time Seen by Provider: 03/28/18 04:43 Source: patient Mode of arrival: EMS Limitations: physical limitation (Severe dyspnea) - History of Present Illness Initial Comments: Patient is a 47-year-old man brought by ambulance to be evaluated for dyspnea. EMS had arrived on scene to find the patient sitting outside and having extreme shortness of breath. He is not able to give them much history. He was reportedly very diaphoretic. EMS placed the patient on BiPAP and gave nebulized treatment. Started IV. Patient had denied chest pain. On arrival here he is not able to give much history not being able to do more than answer yes and no. MD Complaint: shortness of breath -: unknown Consistency: constant Improves With: oxygen, upright position Worsens With: lying flat Known History Of: COPD, asthma, congestive heart failure, diabetes Treatments Prior to Arrival: oxygen, bronchodilator, NIPPV - Related Data Home Medications Medication Instructions Recorded Confirmed Aspirin 81 mg PO DAILY 10/21/15 03/28/18 Polyethylene Glycol 3350 [Miralax] 8.5 gm PO DAILY PRN 10/21/15 03/28/18 Albuterol Sulfate [Proair Hfa] 2 puff INHALATION RT-Q6H PRN 01/18/16 03/28/18 INSULIN LISPRO (HumaLOG) [humaLOG] See Protocol SQ TID-W/MEALS 01/18/16 03/28/18 Insulin Glargine,Hum.rec.anlog 70 units SQ BID 01/18/16 03/28/18 [Touindio Bailey] diphenhydrAMINE [Benadryl] 50 mg PO HS PRN 01/18/16 03/28/18 Docusate [Colace] 100 mg PO TID PRN 10/29/16 03/28/18 Previous Rx's Medication Instructions Recorded Furosemide [Lasix] 80 mg PO BID #60 tab 09/05/16 Sacubitril/Valsartan [Entresto 49 1 tab PO BID #60 tablet 09/05/16 mg-51 mg Tablet] Ipratropium-Albuterol Nebulize 3 ml INHALATION RT-TID #1 11/03/16 [Duoneb 0.5 mg-3 mg/3 ml Soln] Allergies Allergy/AdvReac Type Severity Reaction Status Date / Time azithromycin Allergy Anaphylaxis Verified 12/11/17 12:53 gemfibrozil [From Lopid] Allergy Rash/Hives Verified 12/11/17 12:53 Review of Systems ROS Statement: Those systems with pertinent positive or pertinent negative responses have been documented in the HPI. ROS Other: All systems not noted in ROS Statement are negative. Limitations: ROS unobtainable due to patients medical condition (Severe dyspnea) Respiratory: Reports: dyspnea Cardiovascular: Denies: chest pain Past Medical History Past Medical History: Asthma, Coronary Artery Disease (CAD), Chest Pain / Angina , Heart Failure, COPD, Diabetes Mellitus, GERD/Reflux, Hyperlipidemia, Hypertension, Myocardial Infarction (non Q-wave), Pneumonia, Sleep Apnea/CPAP/ BIPAP, Supraventricular Tachycardia (SVT) Additional Past Medical History / Comment(s): Ischemic cardiomyopathy, SVT, pt states possible prior [place] 2017-went to [facility], IDDM type II, KAMINI with CPAP, chronic cervical/back pain, DJD Last Myocardial Infarction Date:: 07/2016? per pt History of Any Multi-Drug Resistant Organisms: None Reported Past Surgical History: Adenoidectomy, AICD, Back Surgery, Cholecystectomy, EPS, Heart Catheterization, Pacemaker, Tonsillectomy Additional Past Surgical History / Comment(s): 09/02/14 AICD, coronary angiogram, EGD/colonoscopy, low back surgery with fusion. Past Anesthesia/Blood Transfusion Reactions: Motion Sickness Additional Past Anesthesia/Blood Transfusion Reaction / Comment(s): Pt states he received blood with back surgery without reaction. Type of Cardiac Device: AICD Device Placement Date:: 09-02-14 Past Psychological History: ADD/ADHD, Anxiety Smoking Status: Current every day smoker Past Alcohol Use History: None Reported Past Drug Use History: None Reported - Past Family History Father Additional Family Medical History / Comment(s): Pt has not kept in close contact with his father for many yrs. Father was an alcoholic and pt believes he has from cirrhosis of the liver. Mother History Unknown: Yes Additional Family Medical History / Comment(s): Pt is not in contact with his mother or his father who he has heard had . General Exam Limitations: no limitations General appearance: alert, in distress, obese Head exam: Present: atraumatic, normocephalic Eye exam: Present: normal appearance. Absent: scleral icterus, conjunctival injection Respiratory exam: Present: respiratory distress (Rate 40 bpm), wheezes, accessory muscle use, decreased breath sounds. Absent: rales, rhonchi, stridor Cardiovascular Exam: Present: normal rhythm, tachycardia (Rate 148 bpm), normal heart sounds. Absent: systolic murmur, diastolic murmur, rubs, gallop GI/Abdominal exam: Present: soft. Absent: distended, tenderness, guarding, rebound, mass Extremities exam: Present: normal inspection, normal capillary refill. Absent: pedal edema, calf tenderness Back exam: Present: normal inspection Neurological exam: Present: alert. Absent: motor sensory deficit Skin exam: Present: warm, intact, diaphoretic, mottled. Absent: rash Course Vital Signs 03/28/18 03/28/18 03/28/18 04:40 04:51 04:54 Temperature 100.3 F H Pulse Rate 148 H 142 H 146 H Respiratory 40 H 44 H Rate Blood Pressure 138/90 249/160 O2 Sat by Pulse 74 L Oximetry 03/28/18 03/28/18 03/28/18 05:03 05:16 05:19 Temperature Pulse Rate 134 H 130 H Respiratory 40 H 40 H Rate Blood Pressure 112/68 O2 Sat by Pulse 98 Oximetry 03/28/18 03/28/18 05:29 06:21 Temperature Pulse Rate 125 H 114 H Respiratory 43 H 28 H Rate Blood Pressure 107/74 93/51 O2 Sat by Pulse 100 99 Oximetry Medical Decision Making - Medical Decision Making Patient's 47-year-old man brought by ambulance for dyspnea. On arrival he does was changed from the EMS CPAP to our BiPAP machine. Chest x-ray obtained which does appear to show CHF with developing pulmonary edema. The patient's second blood pressure here was quite elevated, at proximal 260/130s. The patient started on IV nitroglycerin. I was at the bedside and titrated the nitroglycerin to rapidly bring the patient's blood pressure down to the neighborhood of 120/70, and his vital signs did begin to rapidly improve, his heart rate dropped from the mid 140s down to the upper 120s. The patient's skin coloration improved and the diaphoresis resolved. He does have improvement in speech and is able to answer in phrases stating that he does feel better. Case is discussed with Dr. Mancini who has seen the patient previously and his treatment recommendations are incorporated. The patient's d-dimer is elevated at 1.0 but it has previously been this high and computed tomography scan was negative. Patient denying pain suggestive of PE. - Lab Data Result diagrams: 03/28/18 04:47 03/28/18 04:47 Lab Results 03/28/18 03/28/18 03/28/18 Range/Units 04:44 04:47 04:47 WBC 19.0 H (3.8-10.6) k/uL RBC 4.70 (4.30-5.90) m/uL Hgb 13.5 (13.0-17.5) gm/dL Hct 45.1 (39.0-53.0) % MCV 96.0 (80.0-100.0) fL MCH 28.6 (25.0-35.0) pg MCHC 29.8 L (31.0-37.0) g/dL RDW 13.1 (11.5-15.5) % Plt Count 254 (150-450) k/uL Neutrophils % 71 % Lymphocytes % 21 % Monocytes % 4 % Eosinophils % 2 % Basophils % 1 % Neutrophils # 13.5 H (1.3-7.7) k/uL Lymphocytes # 3.9 (1.0-4.8) k/uL Monocytes # 0.7 (0-1.0) k/uL Eosinophils # 0.5 (0-0.7) k/uL Basophils # 0.2 (0-0.2) k/uL Hypochromasia Moderate PT (9.0-12.0) sec INR (<1.2) APTT (22.0-30.0) sec D-Dimer (<0.60) mg/L FEU Sodium (137-145) mmol/L Potassium (3.5-5.1) mmol/L Chloride (98-107) mmol/L Carbon Dioxide (22-30) mmol/L Anion Gap mmol/L BUN (9-20) mg/dL Creatinine (0.66-1.25) mg/dL Est GFR (CKD-EPI)AfAm (>60 ml/min/1.73 sqM) Est GFR (CKD-EPI)NonAf (>60 ml/min/1.73 sqM) Glucose (74-99) mg/dL POC Glucose (mg/dL) >600 H (75-99) mg/dL POC Glu [facility] Stephanie Reeder Calcium (8.4-10.2) mg/dL Magnesium (1.6-2.3) mg/dL Total Bilirubin (0.2-1.3) mg/dL AST (17-59) U/L ALT (21-72) U/L Alkaline Phosphatase (38-126) U/L Total Creatine Kinase 61 (55-170) U/L CK-MB (CK-2) 1.1 (0.0-2.4) ng/mL CK-MB (CK-2) Rel Index 1.8 Troponin I 0.078 H* (0.000-0.034) ng/mL NT-Pro-B Natriuret Pep pg/mL Total Protein (6.3-8.2) g/dL Albumin (3.5-5.0) g/dL 03/28/18 03/28/18 03/28/18 Range/Units 04:47 04:47 04:47 WBC (3.8-10.6) k/uL RBC (4.30-5.90) m/uL Hgb (13.0-17.5) gm/dL Hct (39.0-53.0) % MCV (80.0-100.0) fL MCH (25.0-35.0) pg MCHC (31.0-37.0) g/dL RDW (11.5-15.5) % Plt Count (150-450) k/uL Neutrophils % % Lymphocytes % % Monocytes % % Eosinophils % % Basophils % % Neutrophils # (1.3-7.7) k/uL Lymphocytes # (1.0-4.8) k/uL Monocytes # (0-1.0) k/uL Eosinophils # (0-0.7) k/uL Basophils # (0-0.2) k/uL Hypochromasia PT 9.5 (9.0-12.0) sec INR 0.9 (<1.2) APTT 21.2 L (22.0-30.0) sec D-Dimer 1.00 H (<0.60) mg/L FEU Sodium 137 (137-145) mmol/L Potassium 4.2 (3.5-5.1) mmol/L Chloride 103 (98-107) mmol/L Carbon Dioxide 20 L (22-30) mmol/L Anion Gap 14 mmol/L BUN 14 (9-20) mg/dL Creatinine 1.00 (0.66-1.25) mg/dL Est GFR (CKD-EPI)AfAm >90 (>60 ml/min/1.73 sqM) Est GFR (CKD-EPI)NonAf 89 (>60 ml/min/1.73 sqM) Glucose 660 H* (74-99) mg/dL POC Glucose (mg/dL) (75-99) mg/dL POC Glu [facility] ID Calcium 9.1 (8.4-10.2) mg/dL Magnesium 2.3 (1.6-2.3) mg/dL Total Bilirubin 0.4 (0.2-1.3) mg/dL AST 159 H (17-59) U/L ALT 66 (21-72) U/L Alkaline Phosphatase 103 (38-126) U/L Total Creatine Kinase (55-170) U/L CK-MB (CK-2) (0.0-2.4) ng/mL CK-MB (CK-2) Rel Index Troponin I (0.000-0.034) ng/mL NT-Pro-B Natriuret Pep 4630 pg/mL Total Protein 5.8 L (6.3-8.2) g/dL Albumin 3.4 L (3.5-5.0) g/dL 03/28/18 03/28/18 Range/Units 05:19 05:46 WBC (3.8-10.6) k/uL RBC (4.30-5.90) m/uL Hgb (13.0-17.5) gm/dL Hct (39.0-53.0) % MCV (80.0-100.0) fL MCH (25.0-35.0) pg MCHC (31.0-37.0) g/dL RDW (11.5-15.5) % Plt Count (150-450) k/uL Neutrophils % % Lymphocytes % % Monocytes % % Eosinophils % % Basophils % % Neutrophils # (1.3-7.7) k/uL Lymphocytes # (1.0-4.8) k/uL Monocytes # (0-1.0) k/uL Eosinophils # (0-0.7) k/uL Basophils # (0-0.2) k/uL Hypochromasia PT (9.0-12.0) sec INR (<1.2) APTT (22.0-30.0) sec D-Dimer (<0.60) mg/L FEU Sodium (137-145) mmol/L Potassium (3.5-5.1) mmol/L Chloride (98-107) mmol/L Carbon Dioxide (22-30) mmol/L Anion Gap mmol/L BUN (9-20) mg/dL Creatinine (0.66-1.25) mg/dL Est GFR (CKD-EPI)AfAm (>60 ml/min/1.73 sqM) Est GFR (CKD-EPI)NonAf (>60 ml/min/1.73 sqM) Glucose (74-99) mg/dL POC Glucose (mg/dL) >600 H 570 H (75-99) mg/dL POC Glu [facility] Stephanie Wilson Tiffany Calcium (8.4-10.2) mg/dL Magnesium (1.6-2.3) mg/dL Total Bilirubin (0.2-1.3) mg/dL AST (17-59) U/L ALT (21-72) U/L Alkaline Phosphatase (38-126) U/L Total Creatine Kinase (55-170) U/L CK-MB (CK-2) (0.0-2.4) ng/mL CK-MB (CK-2) Rel Index Troponin I (0.000-0.034) ng/mL NT-Pro-B Natriuret Pep pg/mL Total Protein (6.3-8.2) g/dL Albumin (3.5-5.0) g/dL - EKG Data -: EKG Interpreted by Me EKG shows normal: sinus rhythm, axis (Normal), intervals (Normal), QRS complexes (Low voltage QRS complex) Rate: tachycardia (Rate approximately 147 bpm) Interpretation: nonspecific ST-T wave changes Critical Care Time Critical Care Time: Yes (50 minutes) Disposition Clinical Impression: Hypertensive emergency, CHF exacerbation, Hyperglycemia Disposition: ADMITTED IP TO THIS [facility] Condition: Critical
[2018-03-28] MEDS: IPRATROPIUM-ALBUTEROL 3 ML NEB INHALATION SCH ×5 (08:09→19:43)
--- NOTE | 2018-03-28 08:15 | US ---
EXAMINATION TYPE: US venous doppler duplex LE DATE OF EXAM: 03/28/2018 8:07 AM COMPARISON: NONE CLINICAL HISTORY: swelling. recent travel. Bilateral leg swelling, recent long travel SIDE PERFORMED: Bilateral TECHNIQUE: The lower extremity deep venous system is examined utilizing real time linear array sonog sanjuanita with graded compression, doppler sonography and color-flow sonography. VESSELS IMAGED: External Iliac Vein (EIV) Common Femoral Vein Deep Femoral Vein Greater Saphenous Vein * Femoral Vein Popliteal Vein Small Saphenous Vein * Proximal Calf Veins (* superficial vessels) There is normal flow, compressibility, vascular waveforms. Right Leg: Negative for DVT Left Leg: Negative for DVT IMPRESSION: No evidence for DVT at this time.
[2018-03-28 09:09] LABS: Glucose,Whole Blood 450 mg/dL (75-99)
[2018-03-28 10:47] LABS: Glucose,Whole Blood 455 mg/dL (75-99)
[2018-03-28] MEDS: INSULIN ASPART 100 UNIT/ML 1 ML 10 ML VIAL SQ SCH ×4 (10:50→17:46)
[2018-03-28 11:47] LABS: Glucose,Whole Blood 445 mg/dL (75-99)
[2018-03-28] MEDS: ASPIRIN 81 MG PO SCH (12:03)
[2018-03-28] MEDS: SACUBITRIL/VALSARTAN 49 MG-51 MG TABLET PO SCH ×2 (12:04→20:04)
[2018-03-28] MEDS ORDERED: INSULIN REGULAR 100 UNIT in SODIUM CHLORIDE 0.9% 100 ML IV SCH (12:30)
[2018-03-28 13:06] LABS: Glucose,Whole Blood 490 mg/dL (75-99)
[2018-03-28] MEDS ORDERED: MORPHINE SULFATE IR 15 MG TABLET PO PRN (13:29)
[2018-03-28] MEDS ORDERED: NON-FORMULARY DRUG (Omega-3 Fatty Acids [Omega-3] 1,000 MG) PO SCH (13:30)
[2018-03-28] MEDS ORDERED: BUDESONIDE 1 MG/2 ML NEBU INHALATION SCH (13:34)
[2018-03-28 13:37] LABS: Glucose,Whole Blood 513 mg/dL (75-99)
[2018-03-28 14:05] LABS: Glucose,Whole Blood 518 mg/dL (75-99)
--- NOTE | 2018-03-28 14:16 | P.CNPUL ---
History of Present Illness Consult date: 03/28/18 Requesting physician: Buck Johnson Reason for consult: dyspnea, abnormal CXR/CT Chief complaint: Shortness of breath. History of present illness: This is a very pleasant 47-year-old gentleman who follows with Dr. Romano is his primary care physician. He has a history of mild coronary artery disease per cardiac catheterization in November 2017, severe nonischemic cardiomyopathy with ejection fraction less than 20% and is status post AICD placement in 2014, diabetes mellitus, hyperlipidemia, hypertension, ADHD, anxiety. He also has a history of chronic obstructive pulmonary disease with FEV1 value 76% of predicted in 2016, obstructive sleep apnea with an AHI of 21, chronic and ongoing tobacco dependence and follows with Dr. Wyatt in our office for the same. He is on Symbicort and Proventil in the outpatient setting. The patient is seen today in consultation for complaints of worsening shortness of breath. He states he had been living here and is and has 18-year-old son but he left on January 15 to go live with a friend in [place]. That didn't work out and he returned here from [place] on 03/25/2018. He had noticed he had significant increased swelling of the lower extremities and he did not have his BRANDON hose on that he normally wears. Yesterday he developed worsening shortness of breath and EMS was called. He was briefly placed on BiPAP. His chest x-ray revealed evidence of cardiomegaly. Diffuse interstitial thickening likely representing pulmonary edema and some element of subsegmental atelectasis. Results revealed WBC 19.0. Hemoglobin 13.5. Creatinine 1.00. Glucose 660. Troponin 0.078. ProBNP 4630. He has been initiated on an insulin drip. He is also been started on Lasix 80 mg IV push every 12 hours. DuoNeb inhalations and Symbicort resumed. He is seen today in consultation on the selective care unit. He is currently awake and alert in no acute distress. He is dyspneic on minimal exertion. He has a dry nonproductive cough. No chills or night sweats. He is maintaining good O2 saturations in the high 90s on 4 L/m per nasal cannula. Afebrile. Slightly tachycardic. Blood pressure stable. Review of Systems Constitutional: Reports fatigue, Reports sweats, Reports weakness Eyes: denies blurred vision, denies decreased vision Ears: deny: decreased hearing Ears, nose, mouth and throat: Denies headache, Denies sore throat Cardiovascular: Reports dyspnea on exertion, Reports high blood pressure, Reports orthopnea, Reports rapid heart beat, Reports shortness of breath Respiratory: Reports cough, Reports dyspnea, Reports sleep apnea Gastrointestinal: Reports bloating Genitourinary: Reports as per HPI Musculoskeletal: Reports low back pain Musculoskeletal: bilateral: foot swelling Integumentary: Reports color changes Neurological: Denies numbness, Denies weakness Psychiatric: Reports anxiety Endocrine: Denies fatigue, Denies weight change Hematologic/Lymphatic: Reports as per HPI Allergic/Immunologic: Reports as per HPI Past Medical History Past Medical History: Asthma, Coronary Artery Disease (CAD), Chest Pain / Angina , Heart Failure, COPD, Diabetes Mellitus, GERD/Reflux, Hyperlipidemia, Hypertension, Myocardial Infarction ([place]), Pneumonia, Sleep Apnea/CPAP/BIPAP, Supraventricular Tachycardia (SVT) Additional Past Medical History / Comment(s): Ischemic cardiomyopathy, chronic CHF, SVT, IDDM type II, KAMINI with CPAP occasionally used, chronic cervical/back pain-pt states he is no longer taking his morphine for pain, DJD Last Myocardial Infarction Date:: 12/11/17 History of Any Multi-Drug Resistant Organisms: None Reported Past Surgical History: Adenoidectomy, AICD, Back Surgery, Cholecystectomy, EPS, Heart Catheterization, Pacemaker, Tonsillectomy Additional Past Surgical History / Comment(s): 12/10/17 cardiac cath, previous cardiac cath, 09/02/14 AICD/pacer, EGD/colonoscopy, low back surgery with fusion. Past Anesthesia/Blood Transfusion Reactions: Motion Sickness Additional Past Anesthesia/Blood Transfusion Reaction / Comment(s): Pt states he received blood with back surgery without reaction. Type of Cardiac Device: Permanent Pacemaker, AICD Device Placement Date:: 09-02-14 Smoking Status: Former smoker - Past Family History Father Additional Family Medical History / Comment(s): Pt has not kept in close contact with his father for many yrs. Father was an alcoholic and pt believes he has from cirrhosis of the liver. Mother History Unknown: Yes Additional Family Medical History / Comment(s): Pt is not in contact with his mother or his father who he has heard had . Medications and Allergies Home Medications Medication Instructions Recorded Confirmed Type Aspirin 81 mg PO DAILY 10/21/15 03/28/18 History Albuterol Sulfate [Proair Hfa] 2 puff INHALATION RT-Q6H PRN 01/18/16 03/28/18 History INSULIN LISPRO (HumaLOG) [humaLOG] 35 unit SQ TID-W/MEALS 01/18/16 03/28/18 History Insulin Glargine,Hum.rec.anlog 140 units SQ HS 01/18/16 03/28/18 History [[place]jeo Solostar] Furosemide [Lasix] 80 mg PO BID #60 tab 09/05/16 03/28/18 Rx Sacubitril/Valsartan [Entresto 49 1 tab PO BID #60 tablet 09/05/16 03/28/18 Rx mg-51 mg Tablet] Ipratropium-Albuterol Nebulize 3 ml INHALATION RT-TID #1 11/03/16 03/28/18 Rx [Duoneb 0.5 mg-3 mg/3 ml Soln] Albuterol Nebulized [Ventolin 2.5 mg INHALATION RT-TID 03/28/18 03/28/18 History Nebulized] Atorvastatin Calcium [Lipitor] 80 mg PO DAILY 03/28/18 03/28/18 History DULoxetine HCL [Cymbalta] 30 mg PO BID 03/28/18 03/28/18 History Ergocalciferol (Vitamin D2) 50,000 unit PO WEEKLY 03/28/18 03/28/18 History [Vitamin D2] Fluticasone Nasal [place] [Flonase 1 spray EA NOSTRIL DAILY 03/28/18 03/28/18 History Nasal [place]] Fluticasone/Salmeterol [Advair 1 inhalation PO RT-BID 03/28/18 03/28/18 History 100-50 Diskus] Glucosam/Loc-Msm1/C/Som/Bosw 1 tab PO DAILY 03/28/18 03/28/18 History [Icbvaupqdit-Wmvxuvfqutb-SHA Tb] Insulin Glargine,Hum.rec.anlog 20 unit SQ DAILY 03/28/18 03/28/18 History [[place] Solostar] Lubiprostone [Amitiza] 24 mcg PO DAILY 03/28/18 03/28/18 History Metoprolol Tartrate [Lopressor] 100 mg PO BID 03/28/18 03/28/18 History Morphine Sulfate 15 mg PO QID PRN 03/28/18 03/28/18 History [place]-3 Fatty Acids [[place]-3] 1,000 mg PO BID 03/28/18 03/28/18 History Omeprazole [PriLOSEC] 20 mg PO DAILY 03/28/18 03/28/18 History oxyCODONE HCL/ACETAMINOPHEN 1 tab PO Q6HR PRN 03/28/18 03/28/18 History [Percocet 10-325 mg] Allergies Allergy/AdvReac Type Severity Reaction Status Date / Time azithromycin Allergy Anaphylaxis Verified 03/28/18 09:28 gemfibrozil [From Lopid] Allergy Rash/Hives Verified 03/28/18 09:28 Physical Exam Vitals: Vital Signs Temp Pulse Pulse Resp BP BP Pulse Ox 03/28/18 13:17 108 H 03/28/18 13:02 104 H 03/28/18 11:23 97.8 F 104 H 20 116/74 98 03/28/18 10:52 97.0 F L 103 H 20 103/59 98 03/28/18 08:37 109 H 20 102/59 94 L 03/28/18 08:23 106 H 03/28/18 08:11 108 H 03/28/18 07:21 97.1 F L 107 H 22 97/54 98 03/28/18 06:57 108 H 26 H 94/55 100 03/28/18 06:21 114 H 28 H 93/51 99 03/28/18 05:29 125 H 43 H 107/74 100 03/28/18 05:19 40 H 03/28/18 05:16 130 H 40 H 112/68 98 03/28/18 05:03 134 H 03/28/18 04:54 146 H 44 H 249/160 03/28/18 04:51 142 H 03/28/18 04:40 100.3 F H 148 H 40 H 138/90 74 L Intake and Output 03/27/18 03/28/18 03/28/18 22:59 06:59 14:59 Intake Total 6.4 325.7 Balance 6.4 325.7 Intake: Intake, IV Titration 6.4 5.7 Amount Insulin Regular 100 unit 5.7 In Sodium Chloride 0.9% 100 ml @ Titrate IV .Q0M [facility] Rx#:[id number] Nitroglycerin-D5w Pmx 50 6.4 mg In Dextrose/Water 1 250ml.bag @ 20 MCG/MIN 6 mls/hr IV .Q24H [facility] Rx#: [id number] Oral 320 Other: Weight 99.79 kg - Constitutional General appearance: morbidly obese - EENT Eyes: EOMI, PERRLA ENT: hearing grossly normal Ears: bilateral: normal - Neck Neck: normal ROM Carotids: bilateral: upstroke normal Thyroid: bilateral: normal size - Respiratory Respiratory: bilateral: rales - Cardiovascular Rhythm: regular Heart sounds: normal: S1, S2 Abnormal Heart Sounds: systolic murmur - Gastrointestinal General gastrointestinal: normal bowel sounds - Integumentary Integumentary: normal turgor - Neurologic Neurologic: CNII-XII intact - Musculoskeletal Musculoskeletal: generalized weakness - Psychiatric Psychiatric: A&O x's 3, appropriate affect Results - Laboratory Findings CBC and BMP: 03/28/18 04:47 03/28/18 04:47 PT/INR, D-dimer PT 9.5 sec (9.0-12.0) 03/28/18 04:47 INR 0.9 (<1.2) 03/28/18 04:47 D-Dimer 1.00 mg/L FEU (<0.60) H 03/28/18 04:47 Abnormal lab findings: Abnormal Labs 03/28/18 03/28/18 03/28/18 04:44 04:47 04:47 WBC 19.0 H MCHC 29.8 L Neutrophils # 13.5 H APTT D-Dimer Carbon Dioxide Glucose POC Glucose (mg/dL) >600 H AST Troponin I 0.078 H* Total Protein Albumin 03/28/18 03/28/18 03/28/18 04:47 04:47 05:19 WBC MCHC Neutrophils # APTT 21.2 L D-Dimer 1.00 H Carbon Dioxide 20 L Glucose 660 H* POC Glucose (mg/dL) >600 H AST 159 H Troponin I Total Protein 5.8 L Albumin 3.4 L 03/28/18 03/28/18 03/28/18 05:46 09:07 10:30 WBC MCHC Neutrophils # APTT D-Dimer Carbon Dioxide Glucose POC Glucose (mg/dL) 570 H 450 H 455 H AST Troponin I Total Protein Albumin 03/28/18 03/28/18 03/28/18 11:38 13:04 13:34 WBC MCHC Neutrophils # APTT D-Dimer Carbon Dioxide Glucose POC Glucose (mg/dL) 445 H 490 H 513 H AST Troponin I Total Protein Albumin - Diagnostic Findings Chest x-ray: image reviewed Assessment and Plan Assessment: Impression: #1 Acute hypoxic respiratory failure secondary to an acute exacerbation of systolic congestive heart failure. #2 Severe nonischemic cardiomyopathy with ejection fraction less than 20%. History of AICD placement 2014. Cardiac catheterization in November 2017 revealed mild coronary artery disease, treated medically. #3 Lower extremity edema secondary to above, Dopplers negative for DVT. #4 Chronic obstructive pulmonary disease treated with Symbicort and Proventil in the outpatient setting. #5 Obstructive sleep apnea with an AHI of 21, on CPAP in the outpatient setting. #6 Diabetes mellitus. #7 Hyperlipidemia. #8 Hypertension. #9 Chronic and ongoing tobacco dependence. #10 Anxiety. Plan: The patient was seen and evaluated by Dr. Mancini. Chest x-ray and labs were reviewed. Continued bronchodilators and Symbicort. Continue IV diuretics. We' ll repeat a chest x-ray in the a.m. We will increase his activity as tolerated. Heparin for DVT prophylaxis. Protonix for GI prophylaxis. He states he did quit smoking 1 month ago. He is encouraged regarding the importance of complete smoking cessation. We will continue to follow and make further recommendations based on his clinical status. I, the cosigning physician, performed a history & physical examination of the patient. Lungs sounds with crackles in the bilateral posterior bases. Maintaining good O2 saturations in the 90s on 4 L/m per nasal cannula. I discussed the assessment and plan of care with my nurse practitioner, Lisa Harris. I attest to the above consultation as dictated by her. Time with Patient: Greater than 30
[2018-03-28] MEDS: ATORVASTATIN 80 MG TAB PO SCH (14:37)
[2018-03-28] MEDS: NON-FORMULARY DRUG (Lubiprostone [Amitiza] 24 MCG) PO SCH (14:38)
[2018-03-28] MEDS: DULoxetine HCL 30 MG CAPSULE.DR PO SCH ×2 (14:38→20:04)
[2018-03-28] MEDS: FUROSEMIDE 10 MG/ML 10 ML VIAL IV SCH ×2 (14:38→20:04)
[2018-03-28] MEDS: METOPROLOL TARTRATE 50 MG TAB PO SCH ×2 (14:39→20:04)
--- NOTE | 2018-03-28 14:52 | P.HPIM ---
History of Present Illness H&P Date: 03/28/18 Chief Complaint: Short of breath Date of service-03/28/2018 Presenting complaint: Short of breath History of presenting complaint: This is a 47-year-old patient who is rather vague historian. Rather extensive medical history. Chronic stable medical conditions include coronary artery disease, GERD, hyperlipidemia, hypertension, sleep apnea. Uses a CPAP occasionally. Chronic low back pain. Patient presents with worsening shortness of breath coming on for a few days. Wheezing. Minimal cough. Uses 3 pillows at night. Has increasing edema of the lower extremity. Patient stopped smoking 4 weeks ago. Patient short of breath at rest. Denies any chest pain. Review of systems: GEN.: Tired EYES: None HEENT: None NECK: None RESPIRATORY: As above CARDIOVASCULAR: As above GASTROINTESTINAL: None GENITOURINARY: None MUSCULOSKELETAL: Chronic low back pain LYMPHATICS: None HEMATOLOGICAL: None PSYCHIATRY: Anxious NEUROLOGICAL: None Family history: Father probably had cirrhosis of the liver VITAL SIGNS: 100.3, 148, 40, 1:30/90, 74% on room air GENERAL: BMI 33.5, well built, sitting up at the edge of the bed, short of breath. EYES: Pupils equal. Conjunctiva normal. HEENT: External appearance of nose and ears normal, oral cavity grossly normal. NECK: JVD' raised; masses not palpable. HEART: [First and second heart sounds are normal; gross edema Lungs: Respiratory rate increased; diminished breath sounds or prolonged expiration. ABDOMEN: Soft, distended nontender, liver spleen not palpable, no masses palpable. LYMPHATICS: No lymph nodes palpable in the axilla and neck. PSYCH: Alert and oriented x3; mood and affect anxiousl. NEUROLOGICAL: Cranial nerves grossly intact; no facial asymmetry, power and sensation grossly intact. Investigations: Reviewed in the clinical context and assessment and plan White count 19, hemoglobin 13.5, potassium 4.2 glucose 600, troponin 0.078 EKG-tracing interpreted shows sinus tachycardia, the irregular baseline Chest x-ray-film interpreted by me shows bilateral infiltrates, and venous prominence Assessment: -Acute on chronic congestive heart failure exacerbation from underlying coronary artery disease -Possibly bilateral pneumonia suspected gram-negative organism, causing sepsis present on admission -Acute COPD exacerbation in ex-smoker -Acute hypoxic respiratory failure from both pneumonia and COPD and CHF exacerbation -Coronary artery disease with a prior history of bypass is awake awake -Diabetes mellitus type 2, uncontrolled from hyperglycemia -Hyperlipidemia -Essential hypertension -Up for sleep apnea uses CPAP occasionally -Chronic cervical back pain from arthritis, for which patient chronically on insulin -Troponin leak from sepsis CHF, not acute coronary syndrome Plan: Patient started on IV Lasix 80 mg twice a day. Insulin drip. Verbalized bronchodilator as every 4 hours and steroids. Patient is put on a fluid restriction 1500 mL a day. Advised to be followed closely. Consultation to both pulmonary and cardiology was done. Care was discussed with the patient. -AICD with pacemaker Past Medical History Past Medical History: Asthma, Coronary Artery Disease (CAD), Chest Pain / Angina , Heart Failure, COPD, Diabetes Mellitus, GERD/Reflux, Hyperlipidemia, Hypertension, Myocardial Infarction ([place]), Pneumonia, Sleep Apnea/CPAP/BIPAP, Supraventricular Tachycardia (SVT) Additional Past Medical History / Comment(s): Ischemic cardiomyopathy, chronic CHF, SVT, IDDM type II, KAMINI with CPAP occasionally used, chronic cervical/back pain-pt states he is no longer taking his morphine for pain, DJD Last Myocardial Infarction Date:: 12/11/17 History of Any Multi-Drug Resistant Organisms: None Reported Past Surgical History: Adenoidectomy, AICD, Back Surgery, Cholecystectomy, EPS, Heart Catheterization, Pacemaker, Tonsillectomy Additional Past Surgical History / Comment(s): 12/10/17 cardiac cath, previous cardiac cath, 09/02/14 AICD/pacer, EGD/colonoscopy, low back surgery with fusion. Past Anesthesia/Blood Transfusion Reactions: Motion Sickness Additional Past Anesthesia/Blood Transfusion Reaction / Comment(s): Pt states he received blood with back surgery without reaction. Type of Cardiac Device: Permanent Pacemaker, AICD Device Placement Date:: 09-02-14 Smoking Status: Former smoker - Past Family History Father Additional Family Medical History / Comment(s): Pt has not kept in close contact with his father for many yrs. Father was an alcoholic and pt believes he has from cirrhosis of the liver. Mother History Unknown: Yes Additional Family Medical History / Comment(s): Pt is not in contact with his mother or his father who he has heard had . Medications and Allergies Home Medications Medication Instructions Recorded Confirmed Type Aspirin 81 mg PO DAILY 10/21/15 03/28/18 History Albuterol Sulfate [Proair Hfa] 2 puff INHALATION RT-Q6H PRN 01/18/16 03/28/18 History INSULIN LISPRO (HumaLOG) [humaLOG] 35 unit SQ TID-W/MEALS 01/18/16 03/28/18 History Insulin Glargine,Hum.rec.anlog 140 units SQ HS 01/18/16 03/28/18 History [Trudi Bojorquezostluly] Furosemide [Lasix] 80 mg PO BID #60 tab 09/05/16 03/28/18 Rx Sacubitril/Valsartan [Entresto 49 1 tab PO BID #60 tablet 09/05/16 03/28/18 Rx mg-51 mg Tablet] Ipratropium-Albuterol Nebulize 3 ml INHALATION RT-TID #1 11/03/16 03/28/18 Rx [Duoneb 0.5 mg-3 mg/3 ml Soln] Albuterol Nebulized [Ventolin 2.5 mg INHALATION RT-TID 03/28/18 03/28/18 History Nebulized] Atorvastatin Calcium [Lipitor] 80 mg PO DAILY 03/28/18 03/28/18 History DULoxetine HCL [Cymbalta] 30 mg PO BID 03/28/18 03/28/18 History Ergocalciferol (Vitamin D2) 50,000 unit PO WEEKLY 03/28/18 03/28/18 History [Vitamin D2] Fluticasone Nasal [place] [Flonase 1 spray EA NOSTRIL DAILY 03/28/18 03/28/18 History Nasal [place]] Fluticasone/Salmeterol [Advair 1 inhalation PO RT-BID 03/28/18 03/28/18 History 100-50 Diskus] Glucosam/Loc-Msm1/C/Som/Bosw 1 tab PO DAILY 03/28/18 03/28/18 History [Expmmrmhkpo-Vidjbfabkca-ICY Tb] Insulin Glargine,Hum.rec.anlog 20 unit SQ DAILY 03/28/18 03/28/18 History [Trudi Bojorquezostluly] Lubiprostone [Amitiza] 24 mcg PO DAILY 03/28/18 03/28/18 History Metoprolol Tartrate [Lopressor] 100 mg PO BID 03/28/18 03/28/18 History Morphine Sulfate 15 mg PO QID PRN 03/28/18 03/28/18 History [place]-3 Fatty Acids [[place]-3] 1,000 mg PO BID 03/28/18 03/28/18 History Omeprazole [PriLOSEC] 20 mg PO DAILY 03/28/18 03/28/18 History oxyCODONE HCL/ACETAMINOPHEN 1 tab PO Q6HR PRN 03/28/18 03/28/18 History [Percocet 10-325 mg] Allergies Allergy/AdvReac Type Severity Reaction Status Date / Time azithromycin Allergy Anaphylaxis Verified 03/28/18 09:28 gemfibrozil [From Lopid] Allergy Rash/Hives Verified 03/28/18 09:28 Results CBC & Chem 7: 03/28/18 04:47 03/28/18 04:47 Thrombosis Risk Factor Assmnt - Choose All That Apply Any of the Below Risk Factors Present?: Yes Each Factor Represents 1 point: Abnormal pulmonary function (COPD), Age 41-60 years, Heart failure (<1month), Obesity (BMI >25), Serious lung disease incl. pneumonia (< 1month) Other Risk Factors: No Other congenital or acquired thrombophilia - If yes, enter type in comment: No Thrombosis Risk Factor Assessment Total Risk Factor Score: 5 Thrombosis Risk Factor Assessment Level: High Risk
[2018-03-28 16:10] LABS: Glucose,Whole Blood 340 mg/dL (75-99)
[2018-03-28] MEDS: ENOXAPARIN 40 MG/0.4 ML SYRINGE SQ SCH (16:50)
[2018-03-28 17:47] LABS: Glucose,Whole Blood 298 mg/dL (75-99)
[2018-03-28] MEDS: oxyCODONE-APAP 10-325MG 1 EACH TAB PO PRN ×2 (17:55→23:40)
--- NOTE | 2018-03-28 18:39 | P.CRDCN ---
History of Present Illness Consult date: 03/28/18 History of present illness: This is a 47-year-old gentleman with history of nonischemic cardio myopathy, chronic congestive heart failure and also ACD implantation, history is admitted to the hospital with increasing shortness of breath. Patient stopped taking his medications because patient could not get them. He is known to have an ejection fraction of 20%. He has mild coronary artery disease. Patient also has COPD. Patient's BNP is elevated. Chest x-ray showed evidence of CHF with possible infiltrates. His white count is elevated elevated. His symptoms are multifactorial including combination of COPD exacerbation, CHF and possible pneumonia. Patient has been coughing with mild expectoration. Had some fever last night. He is feeling better since admission here. We'll continue his current medical therapy. Patient is currently on IV Lasix along with metoprolol and entresto. Review of Systems As per the chart Past Medical History Past Medical History: Asthma, Coronary Artery Disease (CAD), Chest Pain / Angina , Heart Failure, COPD, Diabetes Mellitus, GERD/Reflux, Hyperlipidemia, Hypertension, Myocardial Infarction (DC), Pneumonia, Sleep Apnea/CPAP/BIPAP, Supraventricular Tachycardia (SVT) Additional Past Medical History / Comment(s): Ischemic cardiomyopathy, chronic CHF, SVT, IDDM type II, KAMINI with CPAP occasionally used, chronic cervical/back pain-pt states he is no longer taking his morphine for pain, DJD Last Myocardial Infarction Date:: 12/11/17 History of Any Multi-Drug Resistant Organisms: None Reported Past Surgical History: Adenoidectomy, AICD, Back Surgery, Cholecystectomy, EPS, Heart Catheterization, Pacemaker, Tonsillectomy Additional Past Surgical History / Comment(s): 12/10/17 cardiac cath, previous cardiac cath, 09/02/14 AICD/pacer, EGD/colonoscopy, low back surgery with fusion. Past Anesthesia/Blood Transfusion Reactions: Motion Sickness Additional Past Anesthesia/Blood Transfusion Reaction / Comment(s): Pt states he received blood with back surgery without reaction. Type of Cardiac Device: Permanent Pacemaker, AICD Device Placement Date:: 09-02-14 Smoking Status: Former smoker - Past Family History Father Additional Family Medical History / Comment(s): Pt has not kept in close contact with his father for many yrs. Father was an alcoholic and pt believes he has from cirrhosis of the liver. Mother History Unknown: Yes Additional Family Medical History / Comment(s): Pt is not in contact with his mother or his father who he has heard had . Medications and Allergies Home Medications Medication Instructions Recorded Confirmed Type Aspirin 81 mg PO DAILY 10/21/15 03/28/18 History Albuterol Sulfate [Proair Hfa] 2 puff INHALATION RT-Q6H PRN 01/18/16 03/28/18 History INSULIN LISPRO (HumaLOG) [humaLOG] 35 unit SQ TID-W/MEALS 01/18/16 03/28/18 History Insulin Glargine,Hum.rec.anlog 140 units SQ HS 01/18/16 03/28/18 History [Touindio Solostar] Furosemide [Lasix] 80 mg PO BID #60 tab 09/05/16 03/28/18 Rx Sacubitril/Valsartan [Entresto 49 1 tab PO BID #60 tablet 09/05/16 03/28/18 Rx mg-51 mg Tablet] Ipratropium-Albuterol Nebulize 3 ml INHALATION RT-TID #1 11/03/16 03/28/18 Rx [Duoneb 0.5 mg-3 mg/3 ml Soln] Albuterol Nebulized [Ventolin 2.5 mg INHALATION RT-TID 03/28/18 03/28/18 History Nebulized] Atorvastatin Calcium [Lipitor] 80 mg PO DAILY 03/28/18 03/28/18 History DULoxetine HCL [Cymbalta] 30 mg PO BID 03/28/18 03/28/18 History Ergocalciferol (Vitamin D2) 50,000 unit PO WEEKLY 03/28/18 03/28/18 History [Vitamin D2] Fluticasone Nasal [place] [Flonase 1 spray EA NOSTRIL DAILY 03/28/18 03/28/18 History Nasal [place]] Fluticasone/Salmeterol [Advair 1 inhalation PO RT-BID 03/28/18 03/28/18 History 100-50 Diskus] Glucosam/Loc-Msm1/C/Som/Bosw 1 tab PO DAILY 03/28/18 03/28/18 History [Byuokerxhkj-Mcweczwvcen-TZN Tb] Insulin Glargine,Hum.rec.anlog 20 unit SQ DAILY 03/28/18 03/28/18 History [Trudi Bailey] Lubiprostone [Amitiza] 24 mcg PO DAILY 03/28/18 03/28/18 History Metoprolol Tartrate [Lopressor] 100 mg PO BID 03/28/18 03/28/18 History Morphine Sulfate 15 mg PO QID PRN 03/28/18 03/28/18 History [place]-3 Fatty Acids [[place]-3] 1,000 mg PO BID 03/28/18 03/28/18 History Omeprazole [PriLOSEC] 20 mg PO DAILY 03/28/18 03/28/18 History oxyCODONE HCL/ACETAMINOPHEN 1 tab PO Q6HR PRN 03/28/18 03/28/18 History [Percocet 10-325 mg] Allergies Allergy/AdvReac Type Severity Reaction Status Date / Time azithromycin Allergy Anaphylaxis Verified 03/28/18 09:28 gemfibrozil [From Lopid] Allergy Rash/Hives Verified 03/28/18 09:28 Physical Exam Vitals: Vital Signs Temp Pulse Pulse Resp BP BP Pulse Ox 03/28/18 16:00 97.5 F L 74 20 120/72 95 03/28/18 15:48 104 H 03/28/18 15:46 94 18 03/28/18 15:37 108 H 03/28/18 13:17 108 H 03/28/18 13:02 104 H 03/28/18 12:00 104 H 20 03/28/18 11:23 97.8 F 104 H 20 116/74 98 03/28/18 10:52 97.0 F L 103 H 20 103/59 98 03/28/18 08:37 109 H 20 102/59 94 L 03/28/18 08:23 106 H 03/28/18 08:11 108 H 03/28/18 07:21 97.1 F L 107 H 22 97/54 98 03/28/18 06:57 108 H 26 H 94/55 100 03/28/18 06:21 114 H 28 H 93/51 99 03/28/18 05:29 125 H 43 H 107/74 100 03/28/18 05:19 40 H 03/28/18 05:16 130 H 40 H 112/68 98 03/28/18 05:03 134 H 03/28/18 04:54 146 H 44 H 249/160 03/28/18 04:51 142 H 03/28/18 04:40 100.3 F H 148 H 40 H 138/90 74 L Intake and Output 03/28/18 03/28/18 03/28/18 06:59 14:59 22:59 Intake Total 6.4 339.2 458.733 Balance 6.4 339.2 458.733 Intake: Intake, IV Titration 6.4 19.2 58.733 Amount Insulin Regular 100 unit 19.2 58.733 In Sodium Chloride 0.9% 100 ml @ Titrate IV .Q0M [facility] Rx#:[id number] Nitroglycerin-D5w Pmx 50 6.4 mg In Dextrose/Water 1 250ml.bag @ 20 MCG/MIN 6 mls/hr IV .Q24H ONE Rx#: [id number] Oral 320 400 Other: Weight 99.79 kg 99.79 kg GENERAL EXAM: Patient is alert and oriented and doesn't appear to be in any acute distress HEENT: Normocephalic. Normal reaction of pupils, equal size, normal range of extraocular motion. No erythema or exudates in the throat. NECK: No masses, no nuchal rigidity. CHEST: No chest wall deformity. LUNGS: Diminished breath sounds at bases HEART: S1 and S2 normal, tachycardic ABDOMEN: No hepatosplenomegaly, normal bowel sounds, no guarding or rigidity. SKIN: No rashes CENTRAL NERVOUS SYSTEM: No focal deficits. EXTREMITIES: Resolving edema. Results 03/28/18 04:47 03/28/18 04:47 Cardiac Enzymes 03/28/18 03/28/18 Range/Units 04:47 04:47 AST 159 H (17-59) U/L CK-MB (CK-2) 1.1 (0.0-2.4) ng/mL Troponin I 0.078 H* (0.000-0.034) ng/mL Coagulation 03/28/18 Range/Units 04:47 PT 9.5 (9.0-12.0) sec APTT 21.2 L (22.0-30.0) sec CBC 03/28/18 Range/Units 04:47 WBC 19.0 H (3.8-10.6) k/uL RBC 4.70 (4.30-5.90) m/uL Hgb 13.5 (13.0-17.5) gm/dL Hct 45.1 (39.0-53.0) % Plt Count 254 (150-450) k/uL Comprehensive Metabolic Panel 03/28/18 Range/Units 04:47 Sodium 137 (137-145) mmol/L Potassium 4.2 (3.5-5.1) mmol/L Chloride 103 (98-107) mmol/L Carbon Dioxide 20 L (22-30) mmol/L BUN 14 (9-20) mg/dL Creatinine 1.00 (0.66-1.25) mg/dL Glucose 660 H* (74-99) mg/dL Calcium 9.1 (8.4-10.2) mg/dL AST 159 H (17-59) U/L ALT 66 (21-72) U/L Alkaline Phosphatase 103 (38-126) U/L Total Protein 5.8 L (6.3-8.2) g/dL Albumin 3.4 L (3.5-5.0) g/dL Current Medications Generic Name Dose Route Start Last Admin Trade Name Freq PRN Reason Stop Dose Admin Albuterol/Ipratropium 3 ml 03/28/18 13:33 03/28/18 15:36 Duoneb 0.5 Mg-3 Mg/3 Ml Soln INHALATION 3 ml RT-Q4H LAN Administration Aspirin 81 mg 03/28/18 09:00 03/28/18 12:03 Aspirin PO 81 mg DAILY LAN Administration Atorvastatin Calcium 80 mg 03/28/18 13:30 03/28/18 14:37 Lipitor PO 80 mg DAILY LAN Administration Budesonide/Formoterol Fumarate 2 puff 03/28/18 20:00 Symbicort 80-4.5 Mcg Inhaler INHALATION RT-BID LAN Diphenhydramine HCl 50 mg 03/28/18 05:46 Benadryl PO HS PRN Insomnia Docusate Sodium 100 mg 03/28/18 05:46 Colace PO TID PRN Constipation Duloxetine HCl 30 mg 03/28/18 13:30 03/28/18 14:38 Cymbalta PO 30 mg BID LAN Administration Enoxaparin Sodium 40 mg 03/28/18 15:00 03/28/18 16:50 Lovenox SQ 40 mg DAILY LAN Administration Furosemide 80 mg 03/28/18 13:45 03/28/18 14:38 Lasix IV 80 mg Q12HR LAN Administration Nitroglycerin/Dextrose 50 mg/ 250 mls @ 6 mls/hr 03/28/18 05:00 03/28/18 06: 20 IV Solution IV 03/29/18 04:59 0 mcg/min .Q24H ONE 0 mls/hr Titration Protocol 20 MCG/MIN Insulin Human Regular 100 unit 101 mls @ 0 mls/hr 03/28/18 12:30 03/28/18 17: 49 / Sodium Chloride IV 9.5 mls/hr .Q0M LAN 9.5 mls/hr Titration Protocol Titrate Insulin Aspart 13 unit 03/28/18 12:30 03/28/18 17:46 Novolog 0.13 unit/kg (13 unit) 13 unit SQ Administration AC-TID LAN Metoprolol Tartrate 100 mg 03/28/18 13:30 03/28/18 14:39 Lopressor PO 100 mg BID LAN Administration Morphine Sulfate 15 mg 03/28/18 13:29 Msir PO QID PRN SEVERE Pain Non-Formulary Medication 24 mcg 03/28/18 13:30 03/28/18 14:38 Lubiprostone [Amitiza] PO Not Given DAILY [facility] Oxycodone/Acetaminophen 1 each 03/28/18 13:29 03/28/18 17:55 Percocet 10-325 PO 1 each Q6HR PRN Administration MODERATE Pain Pantoprazole Sodium 40 mg 03/29/18 07:30 Protonix PO AC-BRKFST [facility] Polyethylene Glycol 8.5 gm 03/28/18 05:46 Miralax PO DAILY PRN Constipation Sacubitril/Valsartan 1 each 03/28/18 09:00 03/28/18 12:04 Entresto 49 Mg-51 Mg Tablet PO 1 each BID LAN Administration Sodium Chloride 10 ml 03/28/18 09:00 03/28/18 12:04 Saline Flush IV 10 ml BID LAN Administration Intake and Output 03/28/18 03/28/18 03/28/18 06:59 14:59 22:59 Intake Total 6.4 339.2 458.733 Balance 6.4 339.2 458.733 Intake: Intake, IV Titration 6.4 19.2 58.733 Amount Insulin Regular 100 unit 19.2 58.733 In Sodium Chloride 0.9% 100 ml @ Titrate IV .Q0M LAN Rx#:[id number] Nitroglycerin-D5w Pmx 50 6.4 mg In Dextrose/Water 1 250ml.bag @ 20 MCG/MIN 6 mls/hr IV .Q24H ONE Rx#: [id number] Oral 320 400 Other: Weight 99.79 kg 99.79 kg Patient Weight 03/29/18 06:59 Weight 99.79 kg 03/28/18 04:47 03/28/18 04:47 EKG Interpretations (text) Sinus tachycardia Assessment and Plan (1) CHF exacerbation Current Visit: Yes Status: Acute Code(s): I50.9 - HEART FAILURE, UNSPECIFIED SNOMED Code(s): 74760702 (2) Hypertensive emergency Current Visit: Yes Status: Acute Code(s): I16.1 - HYPERTENSIVE EMERGENCY SNOMED Code(s): 422542714739951 (3) Asthma exacerbation in COPD Current Visit: No Status: Acute Code(s): J44.1 - CHRONIC OBSTRUCTIVE PULMONARY DISEASE W (ACUTE) EXACERBATION SNOMED Code(s): 9103349134107 (4) Cardiomyopathy Current Visit: No Status: Acute Code(s): I42.9 - CARDIOMYOPATHY, UNSPECIFIED SNOMED Code(s): 85175146 Plan: Continue current treatment. May switch to by mouth Lasix in 24-48 hours. Prognosis is guarded
[2018-03-28 19:43] LABS: Hemoglobin A1C 14.4 % (4.0-6.0)
[2018-03-28] MEDS: SYMBICORT 80-4.5 MCG INHALER INHALATION SCH (19:44)
[2018-03-28 20:26] LABS: Glucose,Whole Blood 260 mg/dL (75-99)
[2018-03-28 20:59] LABS: Glucose,Whole Blood 256 mg/dL (75-99)
[2018-03-28] MEDS ORDERED: INSULIN DETEMIR 100 UNIT/ML 10 ML VIAL SQ SCH (21:00)
[2018-03-29] MEDS: IPRATROPIUM-ALBUTEROL 3 ML NEB INHALATION SCH ×6 (01:07→21:38)
[2018-03-29 01:58] LABS: Glucose,Whole Blood 358 mg/dL (75-99)
[2018-03-29] MEDS: diphenhydrAMINE 50 MG CAP PO PRN ×2 (02:54→20:36)
[2018-03-29 03:13] LABS: Glucose,Whole Blood 367 mg/dL (75-99)
[2018-03-29 06:14] LABS: Glucose,Whole Blood 325 mg/dL (75-99)
[2018-03-29] MEDS ORDERED: INSULIN DETEMIR 100 UNIT/ML 10 ML VIAL SQ SCH ×3 (06:30→21:00)
[2018-03-29] MEDS: INSULIN ASPART 100 UNIT/ML 1 ML 10 ML VIAL SQ SCH ×7 (07:01→20:25)
[2018-03-29] MEDS: PANTOPRAZOLE 40 MG TABLET PO SCH (07:01)
[2018-03-29] MEDS: SYMBICORT 80-4.5 MCG INHALER INHALATION SCH (08:00)
[2018-03-29] MEDS: FUROSEMIDE 10 MG/ML 10 ML VIAL IV SCH ×2 (08:01→19:45)
[2018-03-29] MEDS: DULoxetine HCL 30 MG CAPSULE.DR PO SCH ×2 (08:01→19:45)
[2018-03-29] MEDS: METOPROLOL TARTRATE 50 MG TAB PO SCH ×2 (08:01→19:46)
[2018-03-29] MEDS: SACUBITRIL/VALSARTAN 49 MG-51 MG TABLET PO SCH ×2 (08:01→19:46)
[2018-03-29] MEDS: ATORVASTATIN 80 MG TAB PO SCH (08:01)
[2018-03-29] MEDS: ASPIRIN 81 MG PO SCH (08:01)
[2018-03-29] MEDS: ENOXAPARIN 40 MG/0.4 ML SYRINGE SQ SCH (08:01)
[2018-03-29] MEDS: NON-FORMULARY DRUG (Lubiprostone [Amitiza] 24 MCG) PO SCH (08:03)
[2018-03-29 11:08] LABS: Glucose,Whole Blood 293 mg/dL (75-99)
[2018-03-29] MEDS ORDERED: BUDESONIDE 1 MG/2 ML NEBU INHALATION SCH (15:26)
--- NOTE | 2018-03-29 15:35 | P.PN ---
Progress Note - Text Progress Note Date: 03/29/18 Presenting complaint: Short of breath Interval history: This is a 47-year-old patient who is rather vague historian. Rather extensive medical history. Chronic stable medical conditions include coronary artery disease, GERD, hyperlipidemia, hypertension, sleep apnea. Uses a CPAP occasionally. Chronic low back pain. Patient presents with worsening shortness of breath coming on for a few days. Wheezing. Minimal cough. Uses 3 pillows at night. Has increasing edema of the lower extremity. Patient stopped smoking 4 weeks ago. Patient short of breath at rest. Denies any chest pain. Diagnosed with CHF exacerbation, bilateral pneumonia, COPD exacerbation and acute hypoxic respiratory failure. Today-feeling a bit better. Still got a cough. Edema started to come down. Didn't tolerate some diet. Laying in bed. No fever and chills. Tired appearing. Accu-Cheks are been running high. Review of systems: Was done for constitutional, cardiovascular, GI, pulmonary. relevant finding as above Current medications are reviewed that included: DuoNeb, Symbicort, IV Lasix 80 mg every 12, interested VITAL SIGNS: 97.7, 95, 16, 106/59, 96% on room air GENERAL: Laying in bed, less short of breath. EYES: Pupils equal. Conjunctiva normal. NECK: JVD' raised; masses not palpable. HEART: [First and second heart sounds are normal; gross edema Lungs: Respiratory rate increased; diminished breath sounds and prolonged expiration. ABDOMEN: Soft, distended nontender, liver spleen not palpable, no masses palpable. PSYCH: Alert and oriented x3; mood and affect anxiousl. Investigations: Reviewed in the clinical context and assessment and plan Accu-Cheks 358, 367, 325, to 93 Assessment: -Acute on chronic congestive heart failure exacerbation from underlying coronary artery disease, slow to respond -Possibly bilateral pneumonia suspected gram-negative organism, causing sepsis present on admission -Acute COPD exacerbation in ex-smoker, slow to respond -Acute hypoxic respiratory failure from both pneumonia and COPD and CHF exacerbation, improving -Coronary artery disease with a prior history of bypass is awake awake -Diabetes mellitus type 2, uncontrolled from hyperglycemia -Hyperlipidemia -Essential hypertension -Obstructive sleep apnea uses CPAP occasionally -Chronic cervical back pain from arthritis, for which patient chronically on insulin -Troponin leak from sepsis CHF, not acute coronary syndrome Plan: Continue on IV Lasix. Continue with bronchodilators. Add inhaled steroids. In the form of Pulmicort. Increase Levemir 90 units subcu every 12. We'll also increase NovoLog to 40 units before meals 3 times a day with meals. Patient encouraged to out of bed.
[2018-03-29] MEDS: oxyCODONE-APAP 10-325MG 1 EACH TAB PO PRN ×2 (16:00→22:45)
[2018-03-29 16:34] LABS: Glucose,Whole Blood 75 mg/dL (75-99)
[2018-03-29] MEDS ORDERED: INSULIN ASPART 100 UNIT/ML 1 ML 10 ML VIAL SQ SCH (17:30)
--- NOTE | 2018-03-29 19:42 | PN ---
PROGRESS NOTE This patient is admitted with congestive cardiac failure. Patient has a dilated cardiomyopathy with moderate to severely impaired left ventricular systolic function. The patient feels better. He still feels slightly short of breath, but overall his condition is improved. Blood pressure is 113/69 mmHg, heart rate is 83 per minute. First and second heart sounds are normal. Lungs are clinically clear. Lungs reveal a few scattered wheezes. Patient's urine output is good. The patient has a good urine output at present. We will continue the patient on IV Lasix. The patient's electrolytes remain normal and the creatinine is 1.0. MMODL / IJN: [id number] /
[2018-03-29 20:40] LABS: Glucose,Whole Blood 80 mg/dL (75-99)
[2018-03-29] MEDS: BUDESONIDE 1 MG/2 ML NEBU INHALATION SCH (21:38)
[2018-03-29 21:41] LABS: Glucose,Whole Blood 83 mg/dL (75-99)
[2018-03-30] MEDS: IPRATROPIUM-ALBUTEROL 3 ML NEB INHALATION SCH ×7 (00:02→23:13)
[2018-03-30 02:08] LABS: Glucose,Whole Blood 103 mg/dL (75-99)
[2018-03-30 06:12] LABS: Glucose,Whole Blood 71 mg/dL (75-99)
[2018-03-30 06:21] LABS: Basophils # (A) 0.1 k/uL (0-0.2); Basophils % (A) 1 %; Eosinophils # (A) 0.4 k/uL (0-0.7); Eosinophils % (A) 3 %; HCT 43.3 % (39.0-53.0); HGB 13.7 gm/dL (13.0-17.5); Lymphocytes # (A) 3.3 k/uL (1.0-4.8); Lymphocytes % (A) 25 %; MCH 27.9 pg (25.0-35.0); MCHC 31.7 g/dL (31.0-37.0); Mean Platelet Volume 8.2; Monocytes # (A) 0.6 k/uL (0-1.0); Monocytes % (A) 5 %; Neutrophils # (A) 8.8 k/uL (1.3-7.7); Neutrophils % (A) 66 %; Platelet Count 230 k/uL (150-450); RBC 4.92 m/uL (4.30-5.90); RDW 13.4 % (11.5-15.5); WBC 13.5 k/uL (3.8-10.6)
[2018-03-30 06:26] LABS: MCV 87.9 fL (80.0-100.0)
[2018-03-30 06:27] LABS: Anion Gap 8 mmol/L; Blood Urea Nitrogen 18 mg/dL (9-20); Calcium 8.9 mg/dL (8.4-10.2); Carbon Dioxide 26 mmol/L (22-30); Chloride 102 mmol/L (98-107); Glucose 68 mg/dL (74-99); Magnesium 1.8 mg/dL (1.6-2.3); Potassium 3.4 mmol/L (3.5-5.1); Sodium 136 mmol/L (137-145)
[2018-03-30] MEDS: INSULIN ASPART 100 UNIT/ML 1 ML 10 ML VIAL SQ SCH ×9 (06:47→21:24)
[2018-03-30] MEDS: PANTOPRAZOLE 40 MG TABLET PO SCH (06:48)
--- NOTE | 2018-03-30 07:28 | XR ---
EXAMINATION TYPE: XR chest 2V DATE OF EXAM: 03/30/2018 COMPARISON: 03/28/2018 HISTORY: 47-year-old male CHF, pneumonia follow-up TECHNIQUE: Frontal and lateral views FINDINGS: Left anterior chest wall ICD generator with right ventricular lead. Heart size improved, now upper li mits of normal. Mild diffuse interstitial prominence remains but with improvement in the interval. Th ere is minimal trace effusion present only seen on the lateral view. IMPRESSION: Significant improvement in CHF and interstitial edema. Mild residual pulmonary vascular congestion re dev with a trace effusion.
[2018-03-30] MEDS: BUDESONIDE 1 MG/2 ML NEBU INHALATION SCH ×2 (07:57→19:34)
[2018-03-30] MEDS: ENOXAPARIN 40 MG/0.4 ML SYRINGE SQ SCH (08:49)
[2018-03-30] MEDS: SACUBITRIL/VALSARTAN 49 MG-51 MG TABLET PO SCH ×2 (08:49→19:57)
[2018-03-30] MEDS: METOPROLOL TARTRATE 50 MG TAB PO SCH ×2 (08:49→19:57)
[2018-03-30] MEDS: FUROSEMIDE 10 MG/ML 10 ML VIAL IV SCH (08:49)
[2018-03-30] MEDS: ASPIRIN 81 MG PO SCH (08:49)
[2018-03-30] MEDS: DULoxetine HCL 30 MG CAPSULE.DR PO SCH ×2 (08:49→19:57)
[2018-03-30] MEDS: ATORVASTATIN 80 MG TAB PO SCH (08:50)
[2018-03-30] MEDS: oxyCODONE-APAP 10-325MG 1 EACH TAB PO PRN ×2 (08:58→19:55)
[2018-03-30] MEDS ORDERED: INSULIN DETEMIR 100 UNIT/ML 10 ML VIAL SQ SCH (09:00)
--- NOTE | 2018-03-30 11:01 | ECHOF ---
Referral Reason:chf MEASUREMENTS -------- HEIGHT: 172.7 cm WEIGHT: 107.5 kg BP: 106/59 IVSd: 1.2 cm (0.6 - 1.1) LVIDd: 6.6 cm (3.9 - 5.3) LVPWd: 1.1 cm (0.6 - 1.1) EDV(Teich): 224 ml IVSs: 1.4 cm LVIDs: 5.8 cm LVPWs: 1.1 cm %IVS Thck: 20 % ESV(Teich): 166 ml EF(Teich): 26 % %FS: 12 % SV(Teich): 58 ml LA Diam: 3.7 cm (2.7 - 3.8) RVIDd: 3.2 cm (< 3.3) IVC: 24.77 mm LALs A4C: 6.7 cm LAAs A4C: 28.6 cm LAESV A-L A4C: 103 ml LAESV MOD A4C: 101 ml LALs A2C: 5.8 cm LAAs A2C: 26.1 cm LAESV A-L A2C: 99 ml LAESV MOD A2C: 95 ml LAESV(A-L): 108 ml LAESV Index (A-L): 49.29 ml/m Ao Diam: 3.2 cm (2.0 - 3.7) AV Cusp: 2.4 cm (1.5 - 2.6) EPSS: 2.3 cm MV E Leryo: 0.96 m/s MV DecT: 111 ms MV Dec Marin: 8.7 m/s MV A Leroy: 0.60 m/s MV E/A Ratio: 1.60 MV PHT: 32 ms AV Vmax: 1.12 m/s AV maxP.98 mmHg TR Vmax: 2.58 m/s TR maxP.59 mmHg RAP: 5.00 mmHg RVSP: 31.59 mmHg MV EF SLOPE: 79.65 mm/s (70 - 150) MV EXCURSION: 19.78 mm (> 18.000) FINDINGS -------- AICD This was a technically good study. The left ventricle is moderately dilated. There is borderline concentric left ventricular hypertrop hy. Overall left ventricular systolic function is severely impaired with, an EF < 20%. Both the m el atrial pressure as well as the LV end diastolic pressure is elevated 28.43. The right ventricle is normal in size. LA is severely dilated >40 ml/m2 The right atrium is normal in size. The aortic valve is trileaflet and appears structurally normal. Mild mitral annular calcification present. Mild mitral regurgitation is present. Mild tricuspid regurgitation present. Right ventricular systolic pressure is normal at < 35 mmHg. Trace/mild (physiologic) pulmonic regurgitation. The aortic root size is normal. Normal inferior vena cava with normal inspiratory collapse consistent with estimated right atrial pre ssure of 5 mmHg. The inferior vena cava is mildly dilated. There is no pericardial effusion. CONCLUSIONS -------- 1. AICD 2. This was a technically good study. 3. The left ventricle is moderately dilated. 4. There is borderline concentric left ventricular hypertrophy. 5. Overall left ventricular systolic function is severely impaired with, an EF < 20%. 6. The right ventricle is normal in size. 7. LA is severely dilated >40 ml/m2 8. The right atrium is normal in size. 9. The aortic valve is trileaflet and appears structurally normal. 10. Mild mitral annular calcification present. 11. Mild mitral regurgitation is present. 12. Mild tricuspid regurgitation present. 13. Right ventricular systolic pressure is normal at < 35 mmHg. 14. Trace/mild (physiologic) pulmonic regurgitation. 15. The aortic root size is normal. 16. Normal inferior vena cava with normal inspiratory collapse consistent with estimated right atrial pressure of 5 mmHg. 17. The inferior vena cava is mildly dilated. 18. There is no pericardial effusion. DEVELOPMENT ASSISTANT: Kena Kwan RDCS
[2018-03-30] MEDS ORDERED: SPIRONOLACTONE 25 MG TAB PO SCH (11:15)
[2018-03-30 11:40] LABS: Glucose,Whole Blood 79 mg/dL (75-99)
[2018-03-30] MEDS: NON-FORMULARY DRUG (Lubiprostone [Amitiza] 24 MCG) PO SCH (11:47)
[2018-03-30 11:56] LABS: Glucose,Whole Blood 62 mg/dL (75-99)
[2018-03-30 12:14] LABS: Glucose,Whole Blood 54 mg/dL (75-99)
[2018-03-30 12:40] LABS: Glucose,Whole Blood 151 mg/dL (75-99)
--- NOTE | 2018-03-30 15:06 | P.PN ---
Subjective Progress Note Date: 03/30/18 Principal diagnosis: Acute CHF exacerbation, with systolic dysfunction. Severe nonischemic cardiomyopathy with ejection fraction less than 20% This is a progress note dated 03/30/2018. Patient reports breathing better, denies any chest pain, room air pulse ox is 94%, patient remains in sinus mechanism. Vital signs are stable. Continues on IV diuretics with Lasix 80 mg twice daily, patient is voiding, and were unable to provide an exact net fluid balance. He still has significant amount of bilateral lower extremity edema, 2 + bilaterally. This morning we added Aldactone 25 milligrams daily, we will increase it to twice daily, and we will increase the diuresis, start the patient on Lasix drip at 10 mg/hr. today's chest x-ray shows significant improvement in CHF and interstitial edema, there is residual mild pulmonary vascular congestion remains with a trace effusion. Objective - Vital Signs Vital signs: Vital Signs Temp 97.8 F 03/30/18 12:21 Pulse 115 H 03/30/18 12:21 Resp 18 03/30/18 12:21 BP 99/56 03/30/18 12:21 Pulse Ox 94 L 03/30/18 12:21 Intake & Output 03/29/18 03/30/18 03/30/18 18:59 06:59 18:59 Intake Total 960 600 720 Output Total 800 675 700 Balance 160 -75 20 Weight 108.5 kg Intake: Oral 960 600 720 Output: Urine 800 675 700 Other: Voiding Method Toilet Toilet Toilet Urinal Urinal Urinal # Voids 1 - Exam GENERAL EXAM: Alert, pleasant 47-year-old white male comfortable in no apparent distress. HEAD: Normocephalic/atraumatic. EYES: Normal reaction of pupils, equal size. Conjunctiva pink, sclera white. NOSE: Clear with pink turbinates. THROAT: No erythema or exudates. NECK: No masses, no JVD, no thyroid enlargement, no adenopathy. CHEST: No chest wall deformity. Symmetrical expansion. LUNGS: Diminished breath sounds bilaterally, with faint bibasilar crackles CVS: Regular rate and rhythm, normal S1 and S2, no gallops, no murmurs, no rubs ABDOMEN: Soft, nontender. No hepatosplenomegaly, normal bowel sounds, no guarding or rigidity. EXTREMITIES: No clubbing, 2+ bilateral lower extremity edema, no cyanosis, 2+ pulses and upper and lower extremities. Chronic venous stasis changes in bilateral lower extremities MUSCULOSKELETAL: Muscle strength and tone normal. SPINE: No scoliosis or deformity SKIN: No rashes CENTRAL NERVOUS SYSTEM: Alert and oriented -3. No focal deficits, tone is normal in all 4 extremities. PSYCHIATRIC: Alert and oriented -3. Appropriate affect. Intact judgment and insight. - Labs CBC & Chem 7: 03/30/18 06:01 03/30/18 06:01 Labs: Abnormal Lab Results - Last 24 Hours (Table) 03/30/18 03/30/18 03/30/18 Range/Units 02:06 06:01 06:01 WBC 13.5 H (3.8-10.6) k/uL Neutrophils # 8.8 H (1.3-7.7) k/uL Sodium 136 L (137-145) mmol/L Potassium 3.4 L (3.5-5.1) mmol/L Glucose 68 L (74-99) mg/dL POC Glucose (mg/dL) 103 H (75-99) mg/dL 03/30/18 03/30/18 03/30/18 Range/Units 06:10 11:55 12:12 WBC (3.8-10.6) k/uL Neutrophils # (1.3-7.7) k/uL Sodium (137-145) mmol/L Potassium (3.5-5.1) mmol/L Glucose (74-99) mg/dL POC Glucose (mg/dL) 71 L 62 L 54 L (75-99) mg/dL 03/30/18 Range/Units 12:29 WBC (3.8-10.6) k/uL Neutrophils # (1.3-7.7) k/uL Sodium (137-145) mmol/L Potassium (3.5-5.1) mmol/L Glucose (74-99) mg/dL POC Glucose (mg/dL) 151 H (75-99) mg/dL Assessment and Plan Plan: Assessment: #1. Acute exacerbation of systolic congestive heart failure #2. Nonischemic cardiomyopathy with reduced left ventricular ejection fraction of less than 20%, status post AICD implantation #3. Shortness of breath, due to the above #4. COPD #5. Hypertension, hyperlipidemia #6. Tobacco dependence Plan: We will add Aldactone at 25 mg twice daily, correct hypokalemia, we'll switch the IV push Lasix to Lasix drip at 10 mg per hour. Accurate I&O's, daily weights. I performed a history & physical examination of the patient and discussed their management with my nurse practitioner, Shreya Washington. I reviewed the nurse practitioner's note and agree with the documented findings and plan of care. Lung sounds are diminished, with faint bibasilar crackles, heart sounds S1 and S2. The findings and the impression was discussed with the patient. I attest to the documentation by the nurse practitioner.
[2018-03-30] MEDS: FUROSEMIDE 250 MG in SODIUM CHLORIDE 0.9% 225 ML IVP SCH (15:49)
[2018-03-30 16:18] LABS: Glucose,Whole Blood 206 mg/dL (75-99)
[2018-03-30] MEDS: SPIRONOLACTONE 25 MG TAB PO SCH (19:57)
[2018-03-30] MEDS: diphenhydrAMINE 50 MG CAP PO PRN (20:34)
[2018-03-30 20:49] LABS: Glucose,Whole Blood 117 mg/dL (75-99)
--- NOTE | 2018-03-30 21:33 | P.PN ---
Progress Note - Text Progress Note Date: 03/30/18 Presenting complaint: Short of breath Interval history: This is a 47-year-old patient who is rather vague historian. Rather extensive medical history. Chronic stable medical conditions include coronary artery disease, GERD, hyperlipidemia, hypertension, sleep apnea. Uses a CPAP occasionally. Chronic low back pain. Patient presents with worsening shortness of breath coming on for a few days. Wheezing. Minimal cough. Uses 3 pillows at night. Has increasing edema of the lower extremity. Patient stopped smoking 4 weeks ago. Patient short of breath at rest. Denies any chest pain. Diagnosed with CHF exacerbation, bilateral pneumonia, COPD exacerbation and acute hypoxic respiratory failure. Today-sitting at the edge of the bed. Breathing a bit better. Did tolerate some diet. Edema slightly: None. Intake and output not very accurate. Earlier patient was started on Lasix drip. Review of systems: Was done for constitutional, cardiovascular, GI, pulmonary. relevant finding as above Current medications are reviewed that included: DuoNeb, Symbicort, Lasix drip, Aldactone was added, also an ientresto VITAL SIGNS: 97.8, 101, 18, 99/56, 94% GENERAL: Sitting at the edge of the bed. Breathing improving EYES: Pupils equal. Conjunctiva normal. NECK: JVD' raised; masses not palpable. HEART: [First and second heart sounds are normal; edema present Lungs: Respiratory rate increased; diminished breath sounds and prolonged expiration. ABDOMEN: Soft, distended nontender, liver spleen not palpable, no masses palpable. PSYCH: Alert and oriented x3; mood and affect anxiousl. Investigations: Reviewed in the clinical context and assessment and plan Accu-Cheks 62, 54, 151, 206 chest [id number] interpreted showing some pulmonary edema White count 13.5 depression 3.4 (normal Assessment: -Acute on chronic congestive heart failure exacerbation from systolic dysfunction EF 15-20% from underlying coronary artery disease, slow to respond -No pneumonia per pulmonary -Acute COPD exacerbation in ex-smoker, slow to respond -Acute hypoxic respiratory failure fCOPD and CHF exacerbation, improving -Coronary artery disease with a prior history of bypass -Diabetes mellitus type 2, uncontrolled from hyperglycemia and uncontrolled from hypoglycemia -Hyperlipidemia -Essential hypertension -Obstructive sleep apnea uses CPAP occasionally -Chronic cervical back pain from arthritis, for which patient chronically on insulin -Troponin leak from CHF, not acute coronary syndrome Plan: Patient was started on IV Lasix drip. Aldactone was added. Care was discussed with the patient. We'll change patient's Levemir to 60 mg units subcu daily at bedtime, and also decrease her NovoLog to 25 units 3 times a day with meals. Follow renal function closely.
[2018-03-30] MEDS: INSULIN DETEMIR 100 UNIT/ML 10 ML VIAL SQ SCH (21:37)
[2018-03-30] MEDS: ACETAMINOPHEN TAB 325 MG TAB PO PRN (22:44)
[2018-03-30 23:12] LABS: Basophils # (A) 0.1 k/uL (0-0.2); Basophils % (A) 1 %; Eosinophils # (A) 0.4 k/uL (0-0.7); Eosinophils % (A) 4 %; HCT 44.6 % (39.0-53.0); HGB 14.6 gm/dL (13.0-17.5); Lymphocytes # (A) 1.4 k/uL (1.0-4.8); Lymphocytes % (A) 14 %; MCHC 32.8 g/dL (31.0-37.0); MCV 88.4 fL (80.0-100.0); Mean Platelet Volume 8.2; Monocytes # (A) 0.5 k/uL (0-1.0); Monocytes % (A) 4 %; Neutrophils # (A) 8.2 k/uL (1.3-7.7); Neutrophils % (A) 77 %; Platelet Count 205 k/uL (150-450); RBC 5.04 m/uL (4.30-5.90); RDW 13.4 % (11.5-15.5); WBC 10.7 k/uL (3.8-10.6)
[2018-03-30 23:26] LABS: ALT 64 U/L (21-72); AST 33 U/L (17-59); Albumin 3.5 g/dL (3.5-5.0); Alkaline Phosphatase 113 U/L (38-126); Anion Gap 12 mmol/L; Blood Urea Nitrogen 15 mg/dL (9-20); Calcium 8.6 mg/dL (8.4-10.2); Carbon Dioxide 27 mmol/L (22-30); Chloride 97 mmol/L (98-107); Glucose 108 mg/dL (74-99); Magnesium 1.6 mg/dL (1.6-2.3); Potassium 3.5 mmol/L (3.5-5.1); Sodium 136 mmol/L (137-145); Total Bilirubin 0.5 mg/dL (0.2-1.3); Total Protein 6.3 g/dL (6.3-8.2)
[2018-03-31 01:56] LABS: Appearance,Urine Clear (Clear); Bilirubin,Urine Negative (Negative); Blood,Urine Negative (Negative); Color,Urine Yellow; Glucose,Urine (UA) 1+ (Negative); Ketones,Urine Negative (Negative); Leukocyte Esterase,Urine Negative (Negative); Nitrite,Urine Negative (Negative); PH, Urine 5.5 (5.0-8.0); Protein,Urine Negative (Negative); Urobilinogen,Urine <2.0 mg/dL (<2.0)
[2018-03-31] MEDS: ACETAMINOPHEN TAB 325 MG TAB PO PRN ×3 (03:55→19:53)
[2018-03-31] MEDS: oxyCODONE-APAP 10-325MG 1 EACH TAB PO PRN ×3 (04:19→19:53)
[2018-03-31] MEDS: IPRATROPIUM-ALBUTEROL 3 ML NEB INHALATION SCH ×6 (04:35→23:46)
[2018-03-31 05:45] LABS: Glucose,Whole Blood 270 mg/dL (75-99)
[2018-03-31] MEDS: PANTOPRAZOLE 40 MG TABLET PO SCH (06:43)
[2018-03-31 06:51] LABS: Anion Gap 12 mmol/L; Blood Urea Nitrogen 17 mg/dL (9-20); Carbon Dioxide 24 mmol/L (22-30); Chloride 97 mmol/L (98-107); Glucose 265 mg/dL (74-99); Potassium 3.7 mmol/L (3.5-5.1); Sodium 133 mmol/L (137-145)
[2018-03-31] MEDS: INSULIN ASPART 100 UNIT/ML 1 ML 10 ML VIAL SQ SCH ×7 (06:56→21:28)
[2018-03-31] MEDS: BUDESONIDE 1 MG/2 ML NEBU INHALATION SCH ×2 (07:17→21:12)
[2018-03-31] MEDS: ASPIRIN 81 MG PO SCH (10:31)
[2018-03-31] MEDS: ENOXAPARIN 40 MG/0.4 ML SYRINGE SQ SCH (10:31)
[2018-03-31] MEDS: SPIRONOLACTONE 25 MG TAB PO SCH ×2 (10:32→19:51)
[2018-03-31] MEDS: METOPROLOL TARTRATE 50 MG TAB PO SCH ×2 (10:32→19:52)
[2018-03-31] MEDS: ATORVASTATIN 80 MG TAB PO SCH (10:32)
[2018-03-31] MEDS: SACUBITRIL/VALSARTAN 49 MG-51 MG TABLET PO SCH ×2 (10:32→19:51)
[2018-03-31] MEDS: DULoxetine HCL 30 MG CAPSULE.DR PO SCH ×2 (10:33→19:52)
[2018-03-31] MEDS: NON-FORMULARY DRUG (Lubiprostone [Amitiza] 24 MCG) PO SCH (10:33)
[2018-03-31] MEDS ORDERED: PIPERACILLIN-TAZOBACTAM 3.375 GM in DEXTROSE/WATER 1 50ML.BAG IVPB SCH ×2 (11:00→12:00)
[2018-03-31 11:06] LABS: Glucose,Whole Blood 181 mg/dL (75-99)
--- NOTE | 2018-03-31 11:32 | XR ---
EXAMINATION TYPE: XR chest 2V DATE OF EXAM: 03/31/2018 COMPARISON: 03/30/2018 HISTORY: 47-year-old male possible pneumonia, increased shortness of breath TECHNIQUE: Frontal and lateral views FINDINGS: Heart borderline enlarged. Left anterior chest wall AICD generator with right ventricular lead. Incre asing interstitial opacities and prominence to the pulmonary vasculature. No pleural effusion. IMPRESSION: Borderline heart size and increasing interstitial opacities. Findings could represent atypical pneumo lara or CHF with pulmonary vascular congestion.
[2018-03-31] MEDS: FUROSEMIDE 250 MG in SODIUM CHLORIDE 0.9% 225 ML IVP SCH (12:23)
[2018-03-31] MEDS: MAGNESIUM OXIDE 400 MG TAB PO SCH ×3 (12:29→19:52)
[2018-03-31] MEDS: ALPRAZolam 0.5 MG TAB PO PRN (12:29)
[2018-03-31] MEDS ORDERED: VANCOMYCIN IV PER PHARMACY 1 EACH MISC MISCELLANE PRN (12:49)
[2018-03-31] MEDS ORDERED: VANCOMYCIN 1,750 MG in SODIUM CHLORIDE 0.9% 500 ML IVPB ONE (13:15)
--- NOTE | 2018-03-31 13:55 | P.PN ---
Subjective Progress Note Date: 03/31/18 Principal diagnosis: Acute CHF exacerbation, with systolic dysfunction. Severe nonischemic cardiomyopathy with ejection fraction less than 20% This is a progress note dated 03/30/2018. Patient reports breathing better, denies any chest pain, room air pulse ox is 94%, patient remains in sinus mechanism. Vital signs are stable. Continues on IV diuretics with Lasix 80 mg twice daily, patient is voiding, and were unable to provide an exact net fluid balance. He still has significant amount of bilateral lower extremity edema, 2 + bilaterally. This morning we added Aldactone 25 milligrams daily, we will increase it to twice daily, and we will increase the diuresis, start the patient on Lasix drip at 10 mg/hr. today's chest x-ray shows significant improvement in CHF and interstitial edema, there is residual mild pulmonary vascular congestion remains with a trace effusion. On 03/31/2018 patient seen in follow-up. Earlier in the day patient was complaining of increased shortness of breath, patient remains on Lasix infusion at 10 mg/h, net fluid balance is difficult to estimate, his weight is up by 0.8 kg over the last 24 hours, lung sounds are positive for bilateral crackles at the bases, his chest x-ray shows increased interstitial opacities. Patient was given some Xanax and placed on supplemental oxygen, with improvement of his symptoms, bilateral lower extremity edema appearance is , but residual edema remains. We'll add one dose of Zaroxolyn, continue with Aldactone twice a day, and the rest the medical treatments. Objective - Vital Signs Vital signs: Vital Signs Temp 99.9 F H 03/31/18 12:00 Pulse 130 H 03/31/18 12:00 Resp 20 03/31/18 12:00 BP 85/58 03/31/18 12:00 Pulse Ox 97 03/31/18 12:00 Intake & Output 03/30/18 03/31/18 03/31/18 18:59 06:59 18:59 Intake Total 1080 830 565.667 Output Total 700 1175 550 Balance 380 -345 15.667 Weight 109.3 kg Intake: Intake, IV Titration 110 205.667 Amount Furosemide 250 mg In 110 205.667 Sodium Chloride 0.9% 225 ml @ 10 MG/HR 10 mls/hr IVP .Q24H [facility] Rx#: [id number] Oral 1080 720 360 Output: Urine 700 1175 550 Other: Voiding Method Toilet Toilet Toilet Urinal Urinal Urinal - Exam GENERAL EXAM: Alert, pleasant 47-year-old white male comfortable in no apparent distress. HEAD: Normocephalic/atraumatic. EYES: Normal reaction of pupils, equal size. Conjunctiva pink, sclera white. NOSE: Clear with pink turbinates. THROAT: No erythema or exudates. NECK: No masses, no JVD, no thyroid enlargement, no adenopathy. CHEST: No chest wall deformity. Symmetrical expansion. LUNGS: Diminished breath sounds bilaterally, with bibasilar crackles CVS: Regular rate and rhythm, normal S1 and S2, no gallops, no murmurs, no rubs ABDOMEN: Soft, nontender. No hepatosplenomegaly, normal bowel sounds, no guarding or rigidity. EXTREMITIES: No clubbing, 2+ bilateral lower extremity edema, no cyanosis, 2+ pulses and upper and lower extremities. Chronic venous stasis changes in bilateral lower extremities MUSCULOSKELETAL: Muscle strength and tone normal. SPINE: No scoliosis or deformity SKIN: No rashes CENTRAL NERVOUS SYSTEM: Alert and oriented -3. No focal deficits, tone is normal in all 4 extremities. PSYCHIATRIC: Alert and oriented -3. Appropriate affect. Intact judgment and insight. - Labs CBC & Chem 7: 03/30/18 22:50 03/31/18 05:42 Labs: Abnormal Lab Results - Last 24 Hours (Table) 03/30/18 03/30/18 03/30/18 Range/Units 16:17 20:47 22:50 WBC 10.7 H (3.8-10.6) k/uL Neutrophils # 8.2 H (1.3-7.7) k/uL Sodium (137-145) mmol/L Chloride (98-107) mmol/L Glucose (74-99) mg/dL POC Glucose (mg/dL) 206 H 117 H (75-99) mg/dL Calcium (8.4-10.2) mg/dL Magnesium (1.6-2.3) mg/dL Urine Glucose (UA) (Negative) 03/30/18 03/31/18 03/31/18 Range/Units 22:50 00:45 05:42 WBC (3.8-10.6) k/uL Neutrophils # (1.3-7.7) k/uL Sodium 136 L 133 L (137-145) mmol/L Chloride 97 L 97 L (98-107) mmol/L Glucose 108 H 265 H (74-99) mg/dL POC Glucose (mg/dL) (75-99) mg/dL Calcium 8.0 L (8.4-10.2) mg/dL Magnesium (1.6-2.3) mg/dL Urine Glucose (UA) 1+ H (Negative) 03/31/18 03/31/18 03/31/18 Range/Units 05:42 05:44 11:05 WBC (3.8-10.6) k/uL Neutrophils # (1.3-7.7) k/uL Sodium (137-145) mmol/L Chloride (98-107) mmol/L Glucose (74-99) mg/dL POC Glucose (mg/dL) 270 H 181 H (75-99) mg/dL Calcium (8.4-10.2) mg/dL Magnesium 1.4 L (1.6-2.3) mg/dL Urine Glucose (UA) (Negative) Assessment and Plan Plan: Assessment: #1. Acute exacerbation of systolic congestive heart failure #2. Nonischemic cardiomyopathy with reduced left ventricular ejection fraction of less than 20%, status post AICD implantation #3. Shortness of breath, due to the above #4. COPD #5. Hypertension, hyperlipidemia #6. Tobacco dependence Plan: Continue current medical treatment, continue IV Lasix infusion, we will add one dose of Zaroxolyn to increase diuresis. Continue Aldactone. May need to place a Munoz catheter for accurate intake and output, for now patient refuses, and he was advised to let nursing measure his output. Continue to follow. I performed a history & physical examination of the patient and discussed their management with my nurse practitioner, Shreya Washington. I reviewed the nurse practitioner's note and agree with the documented findings and plan of care. Lung sounds are diminished, with faint bibasilar crackles, heart sounds S1 and S2. The findings and the impression was discussed with the patient. I attest to the documentation by the nurse practitioner. Time with Patient: Less than 30
[2018-03-31 14:14] LABS: Glucose,Whole Blood 136 mg/dL (75-99)
--- NOTE | 2018-03-31 15:33 | P.PN ---
Progress Note - Text Progress Note Date: 03/31/18 Presenting complaint: Fever Interval history: This is a 47-year-old patient who is rather vague historian. Rather extensive medical history. Chronic stable medical conditions include coronary artery disease, GERD, hyperlipidemia, hypertension, sleep apnea. Uses a CPAP occasionally. Chronic low back pain. Patient presents with worsening shortness of breath coming on for a few days. Wheezing. Minimal cough. Uses 3 pillows at night. Has increasing edema of the lower extremity. Patient stopped smoking 4 weeks ago. Patient short of breath at rest. Denies any chest pain. Diagnosed with CHF exacerbation, , COPD exacerbation and acute hypoxic respiratory failure. Today-patient a few overnight. Breathing is getting better. Some edema still present. Patient has some redness of the IV site in his left hand. Denies any urinary symptoms. No much cough. ID was consulted. Remains on Lasix drip. I' s and O's not well documented. Review of systems: Was done for constitutional, cardiovascular, GI, pulmonary. relevant finding as above Current medications are reviewed that included: DuoNeb, aspirin, Lovenox, Lasix drip, Levemir, Aldactone VITAL SIGNS: T-max 102.5, 113, 20, 85/58, 97% 2 L GENERAL: Sitting at the edge of the bed. Tired EYES: Pupils equal. Conjunctiva normal. NECK: JVD' raised; masses not palpable. HEART: [First and second heart sounds are normal; edema present Lungs: Respiratory rate increased; diminished breath sounds and prolonged expiration. ABDOMEN: Soft, distended nontender, liver spleen not palpable, no masses palpable. PSYCH: Alert and oriented x3; mood and affect anxiousl. DERMATOLOGICAL: Some redness of the left distal hand and the IVs access site, with localized tenderness Investigations: Reviewed in the clinical context and assessment and plan Accu-Cheks to 70, 181, 136, magnesium 1.4 BUN 17, creatinine 0.96 Checks [id number] pulmonary edema Assessment: -Acute on chronic congestive heart failure exacerbation from systolic dysfunction EF 15-20% from underlying coronary artery disease, slow to respond, remains on IV Lasix drip -Acute cellulitis and that IV access site, with fever -No pneumonia per pulmonary -Acute COPD exacerbation in ex-smoker, slow to respond -Acute hypoxic respiratory failure fCOPD and CHF exacerbation, improving -Coronary artery disease with a prior history of bypass -Diabetes mellitus type 2, uncontrolled from hyperglycemia and uncontrolled from hypoglycemia -Hyperlipidemia -Essential hypertension -Obstructive sleep apnea uses CPAP occasionally -Chronic cervical back pain from arthritis, for which patient chronically on insulin -Troponin leak from CHF, not acute coronary syndrome Plan: Patient is started on vancomycin. ID was consulted. Lasix drip to maintain. Care was discussed the patient's family the bedside.
[2018-03-31 16:12] LABS: Glucose,Whole Blood 143 mg/dL (75-99)
[2018-03-31] MEDS ORDERED: METOLAZONE 2.5 MG TAB PO STA (17:40)
[2018-03-31 20:55] LABS: Glucose,Whole Blood 147 mg/dL (75-99)
[2018-03-31] MEDS: INSULIN DETEMIR 100 UNIT/ML 10 ML VIAL SQ SCH (21:28)
[2018-03-31] MEDS: LEVOFLOXACIN 750 MG TAB PO SCH (21:28)
[2018-03-31] MEDS: VANCOMYCIN 1,750 MG in SODIUM CHLORIDE 0.9% 500 ML IVPB SCH (22:52)
[2018-04-01] MEDS: ACETAMINOPHEN TAB 325 MG TAB PO PRN ×2 (01:59→08:56)
[2018-04-01] MEDS: IPRATROPIUM-ALBUTEROL 3 ML NEB INHALATION SCH ×6 (03:40→23:22)
[2018-04-01 06:16] LABS: Glucose,Whole Blood 235 mg/dL (75-99)
[2018-04-01] MEDS: PANTOPRAZOLE 40 MG TABLET PO SCH (06:27)
[2018-04-01] MEDS: INSULIN ASPART 100 UNIT/ML 1 ML 10 ML VIAL SQ SCH ×7 (06:27→21:18)
[2018-04-01] MEDS: BUDESONIDE 1 MG/2 ML NEBU INHALATION SCH ×2 (07:44→19:44)
[2018-04-01 08:27] LABS: Anion Gap 11 mmol/L; Blood Urea Nitrogen 18 mg/dL (9-20); Carbon Dioxide 29 mmol/L (22-30); Chloride 93 mmol/L (98-107); Glucose 204 mg/dL (74-99); Sodium 133 mmol/L (137-145)
[2018-04-01 08:29] LABS: Calcium 8.4 mg/dL (8.4-10.2); Magnesium 1.7 mg/dL (1.6-2.3); Potassium 3.5 mmol/L (3.5-5.1)
--- NOTE | 2018-04-01 08:48 | CONS ---
CONSULTATION DATE OF SERVICE: 03/31/2018. REASON FOR CONSULTATION: Infection. HISTORY OF PRESENT ILLNESS: The patient is a 47-year-old male who presented to the ER at [facility] 03/28/2018 with chief complaints of increasing shortness of breath. His symptoms have been getting worse for which he presented to the hospital. The patient denies significant chest pain. He did have very minimal cough not bringing up any sputum. No nausea, no vomiting. No abdominal pain or any diarrhea. The patient on arrival to the ER has been evaluated by the ER physician. The patient did have a chest x-ray, which did show cardiomegaly, diffuse interstitial thickening likely representing pulmonary edema. He did have lower extremity Dopplers that were negative for DVT. The patient did have an echocardiogram completed, which did show left ventricular systolic function severely impaired with EF of less than 20%. The patient did have a low-grade fever of 100.3 on presentation and was afebrile for the next 2 days. However, on March 30 the patient did have a fever of 102.5 degrees Fahrenheit with 102.7 today. The patient apparently noticed to have slight erythema at the IV site. Blood cultures were obtained. The patient started on vancomycin. However, because of his persistent fever, Infectious Disease was consulted for further recommendation regarding antibiotic therapy. The patient main symptoms remains to be increasing shortness of breath. Very minimal cough. The patient denies having any URI symptoms. No nausea, no vomiting. No abdominal pain. No diarrhea. No burning or frequency of urine. REVIEW OF SYSTEMS: CONSTITUTIONAL: Positive for weakness along with the fever. EYES: No complaint. ENT: No complaint. RESPIRATORY: As per HPI. CARDIOVASCULAR: As per HPI. GENITOURINARY: No complaint. GASTROINTESTINAL: No complaint. MUSCULOSKELETAL: No complaint. INTEGUMENTARY: As per HPI. PSYCHOLOGICAL: No complaint. ENDOCRINE: No complaint. NEUROLOGIC: No complaint. PAST MEDICAL HISTORY: Asthma, coronary artery disease, heart failure, COPD, diabetes mellitus, hypertension, hyperlipidemia, sleep apnea, ischemic cardiomyopathy. PAST SURGICAL HISTORY: AICD placement, adenoidectomy, cholecystectomy, heart catheterization, tonsillectomy. SOCIAL HISTORY: History of smoking. No drinking or drug use. FAMILY HISTORY: No pertinent findings noticed. ALLERGIES: AZITHROMYCIN, GEMFIBROZIL. MEDICATIONS: Include the patient currently on Tylenol, DuoNeb, Xanax, aspirin, Lipitor, Pulmicort, Benadryl, Colace, Cymbalta, Lovenox, Lasix drip, Hyzaar, NovoLog, Levemir, Mag oxide, Lopressor, Protonix, MiraLAX, Entresto, and vancomycin. EXAMINATION: Blood pressure is 98/70 with a pulse of 130, temperature 102.7. He is 98% on 2 L nasal cannula. General description is a middle aged male up in the bed in no distress. No tachypnea or accessory muscle use. HEENT: Shows no pallor. No scleral icterus. Oral mucosa membrane is dry. No pharyngeal erythema or thrush. NECK: Trachea central. No thyromegaly. LUNGS: Unlabored breathing with decreased breath sounds in the bases. No wheeze. HEART: S1, S2. Regular rate and rhythm. No wheeze. ABDOMEN: Soft, no tenderness. No guarding or rigidity. EXTREMITIES: 2+ edema feet. SKIN EXAMINATION: No rash or mass palpable. NEUROLOGICAL: Patient is awake, alert, oriented. Mood and affect normal. LABS: BUN of 17, creatinine 0.96, hemoglobin 14.6, white count 10.7, admission white count was 19,000. UA has been negative. DIAGNOSTIC IMPRESSION: The patient with a fever of 102 degrees Fahrenheit. The patient did have evidence of tachycardia admitted to hospital predominantly with increasing shortness of breath. The patient has been diagnosed with acute congestive heart failure exacerbation and the patient did have low ejection fraction. With the fever being new and predominant respiratory symptoms, underlying respiratory infection needs to be ruled out. Apparently the patient also noticed to have some erythema at the IV site that could be of one of the other sources of his fever. The patient currently with no evidence of any cellulitis or any abdominal tenderness and no urinary symptoms. PLAN: 1. Blood culture has been repeated. 2. We will try to obtain urine for Legionella antigens. 3. We will keep the patient on vancomycin pharmacy to dose target of 15 watching his kidney function closely and add Levaquin 750 p.o. daily. 4. We will follow up on the clinical condition and culture to further adjust medication if needed. Thank you for this consultation. Will follow this patient along with you. MMODL / IJN: [id number] /
[2018-04-01] MEDS: MAGNESIUM OXIDE 400 MG TAB PO SCH ×3 (08:54→21:48)
[2018-04-01] MEDS: ASPIRIN 81 MG PO SCH (08:54)
[2018-04-01] MEDS: DULoxetine HCL 30 MG CAPSULE.DR PO SCH ×2 (08:54→21:44)
[2018-04-01] MEDS: SACUBITRIL/VALSARTAN 49 MG-51 MG TABLET PO SCH ×2 (08:54→21:46)
[2018-04-01] MEDS: SPIRONOLACTONE 25 MG TAB PO SCH ×2 (08:54→21:47)
[2018-04-01] MEDS: METOPROLOL TARTRATE 50 MG TAB PO SCH ×2 (08:55→21:59)
[2018-04-01] MEDS: DOCUSATE 100 MG CAP PO PRN (08:55)
[2018-04-01] MEDS: ENOXAPARIN 40 MG/0.4 ML SYRINGE SQ SCH (08:55)
[2018-04-01] MEDS: oxyCODONE-APAP 10-325MG 1 EACH TAB PO PRN ×3 (08:56→21:49)
[2018-04-01] MEDS: ATORVASTATIN 80 MG TAB PO SCH (08:58)
[2018-04-01] MEDS: NON-FORMULARY DRUG (Lubiprostone [Amitiza] 24 MCG) PO SCH (08:59)
[2018-04-01] MEDS: ONDANSETRON 4 MG/2 ML VIAL IVP PRN ×2 (09:23→22:16)
--- NOTE | 2018-04-01 10:45 | PN ---
PROGRESS NOTE Mr. Haynes is a 47-year-old male with known history of severe nonischemic cardiomyopathy, status post ICD implant, history of diabetes, hyperlipidemia, who presented with worsening CHF. He is feeling slightly better today, continued to have dyspnea on exertion, although improved. He denies any symptoms of chest pain. He denies any dizziness or palpitation. He has underwent an echocardiogram that revealed ejection fraction less than 20% with mild mitral and tricuspid regurgitation and no significant pulmonary hypertension. He continues to be on aspirin 81 mg daily, Lipitor 80 mg daily, Lovenox subcutaneously, IV Lasix drip at 10 mg an hour, metoprolol tartrate 100 mg twice a day, Protonix, Entresto twice a day, spironolactone 25 mg twice a day. PHYSICAL EXAMINATION: Blood pressure 100/60 with the heart rate in the low 100s, temperature 101.6. LUNGS: With a few crackles at the bases. HEART: Tachycardiac, S1, S2. No S3 with a systolic murmur. No diastolic murmur. ABDOMEN: Soft, nontender. EXTREMITIES: +1 edema. LAB DATA: Lab data revealed BUN and creatinine yesterday of 17 and 0.96, today 18 and 0.97. IMPRESSION: 1. Exacerbation of congestive heart failure in a patient with known history of severe nonischemic cardiomyopathy, status post ICD implant. 2. Fever of unclear etiology, probably exacerbating his symptoms and causing the tachycardia. 3. ICD implantation. 4. Diabetes mellitus. 5. History of chronic obstructive pulmonary disease. 6. Chronic tobacco use. RECOMMENDATION: I will switch him to IV Lasix q.8 hours. Continue rest of his medical regimen. Follow his renal function. The patient is receiving treatment for possible infectious process. He has been seen by Dr. Santoyo. Depending on his progress, further recommendation will be made. MMODL / IJN: [id number] /
[2018-04-01 11:10] LABS: Glucose,Whole Blood 171 mg/dL (75-99)
[2018-04-01] MEDS: VANCOMYCIN 1,750 MG in SODIUM CHLORIDE 0.9% 500 ML IVPB SCH ×2 (11:31→22:16)
[2018-04-01] MEDS: FUROSEMIDE 10 MG/ML 10 ML VIAL IV SCH (15:15)
--- NOTE | 2018-04-01 15:38 | CT ---
EXAMINATION TYPE: CT angio chest DATE OF EXAM: 04/01/2018 3:17 PM COMPARISON: Chest x-ray 03/31/2018, CT scan chest 09/03/2016 HISTORY: Hypoxia and fever. CT DLP: 526.8 mGycm Automated exposure control for dose reduction was used. CONTRAST: CTA scan of the thorax is performed with IV Contrast, patient injected with 100 mL of Isovue 370, pul monary embolism protocol. . FINDINGS: LUNGS: Changes of COPD are noted. Interlobular septal thickening at the lung bases can be associated with early interstitial lung disease. Peripheral subsegmental areas of consolidation involving the rober ngs are noted bilaterally may been the basis of atelectasis or early infiltrate. No pneumothorax. Tin y bilateral pleural effusions are noted. MEDIASTINUM: There is satisfactory enhancement of the pulmonary artery and its branches, there is no CT evidence for pulmonary embolism. There is abnormal prevascular lymph node redemonstrated measuring 1.6 x 1.2 cm on current study. Abnormal subcarinal lymph node is felt stable measuring 2.4 x 1.5 cm. Stable prominent right hilar ly mph node is redemonstrated.. No significant effusion is seen. Heart size is enlarged with single lead pacemaker/AICD redemonstrated. There is moderate left atrial dilatation redemonstrated. There is mod erate to severe left ventricular dilatation redemonstrated. OTHER: Hypertrophic and degenerative change of the spine. Previous cholecystectomy changes noted. IMPRESSION: 1. No diagnostic evidence of pulmonary embolism 2. Stable mediastinal adenopathy 3. Tiny bilateral pleural effusions with cardiomegaly. Interstitial increased markings. Differential diagnosis would include interstitial Pneumonitis or chronic interstitial lung disease. Mild venous co ngestion not excluded. 4. within the upper lobes there are peripheral based areas of atelectasis or ill-defined infiltrate c orrelate clinically.
[2018-04-01 16:24] LABS: Glucose,Whole Blood 154 mg/dL (75-99)
--- NOTE | 2018-04-01 17:18 | PN ---
PROGRESS NOTE DATE OF SERVICE: 04/01/2018. REASON FOR FOLLOWUP: Fever. INTERVAL HISTORY: The patient did have another fever of 100.3 degrees Fahrenheit. The patient is complaining of shortness of breath, though denies having significant chest pain. Minimal cough, not bringing up any sputum. No abdominal pain. The patient has minimal pain at the left hand previous IV site with minimal redness. No abdominal pain. No diarrhea. EXAMINATION: Blood pressure 92/54, pulse of 90, temperature 98.6, 96% on room air. General description is a middle-aged male up in the bed in no distress. RESPIRATORY SYSTEM: Unlabored breathing. Decreased breath sounds at the base. No wheeze. HEART: S1, S2. Regular rate and rhythm. ABDOMEN: Soft. No tenderness. EXTREMITIES: Some trace edema of feet. LABS: BUN of 18, creatinine 0.97. Blood culture so far negative. DIAGNOSTIC IMPRESSION AND PLAN: Patient with fever, question pulmonary source versus left IV site with fever despite being on Levaquin and vancomycin. Will add Fortaz. We will also check a CT of the chest to make sure no evidence of embolism and also to rule out any consolidation suggestive of pneumonia. Antibiotic adjusted further on the basis of the culture, clinical condition. Continue supportive care. MMODL / IJN: [id number] /
[2018-04-01 20:15] LABS: Glucose,Whole Blood 76 mg/dL (75-99)
[2018-04-01] MEDS: INSULIN DETEMIR 100 UNIT/ML 10 ML VIAL SQ SCH (21:45)
[2018-04-01] MEDS: LEVOFLOXACIN 750 MG TAB PO SCH (21:46)
[2018-04-01] MEDS: ALPRAZolam 0.5 MG TAB PO PRN (21:48)
[2018-04-01] MEDS ORDERED: METOPROLOL TARTRATE 50 MG TAB PO STA (23:01)
--- NOTE | 2018-04-01 23:30 | PN ---
PROGRESS NOTE DATE OF SERVICE: 04/01/2018 PRESENTING COMPLAINT: Short of breath. INTERVAL HISTORY: Patient was admitted with CHF exacerbation and COPD exacerbation. The patient also has developed cellulitis of the left hand and IV access site that appears to be the cause of his fevers. They started to come down. Redness is coming down. Patient did spike one fever this morning. Overall feeling better. Breathing is getting better. REVIEW OF SYSTEMS: Done for constitutional, cardiovascular, GI, pulmonary, dermatological; relevant findings as above. CURRENT MEDICATIONS: Reviewed. They include Lipitor, IV ceftazidime, IV Lasix 80 q.8, Levaquin and vancomycin. PHYSICAL EXAMINATION: T-max 101.6 this morning; currently fever is down. Pulse 94, respiration 17, blood pressure 88/53, pulse 95% on room air. GENERAL APPEARANCE: Sitting at edge of the bed, awake. EYES: Pupils equal. Conjunctivae normal. HEENT: External appearance of nose and ears normal. Oral cavity normal. NECK: JVD raised. Mass not palpable. RESPIRATORY: Effort increased. LUNGS: Diminished breath sounds. CARDIOVASCULAR: First and second sounds normal. Decreased edema. ABDOMEN: Distended, soft. Liver and spleen not palpable. PSYCHIATRY: Alert and oriented x3. Mood and affect normal. EXTREMITIES: Redness of the left hand with a localized wound with redness now decreasing. INVESTIGATIONS: Potassium 3.5, BUN 8, creatinine 0.97. ASSESSMENT: 1. Acute on chronic congestive heart failure exacerbation from systolic dysfunction, ejection fraction %, from underlying coronary artery disease. Remains on IV Lasix 80 mg q.8. 2. Acute cellulitis at the IV access site of the left hand. Clinically looking a bit better. 3. No pneumonia per Pulmonary. 4. Acute chronic obstructive pulmonary disease exacerbation in an ex-smoker, improving. 5. Acute hypoxic respiratory failure from chronic obstructive pulmonary disease and congestive heart failure exacerbation. 6. Coronary artery disease with prior history of bypass. 7. Diabetes mellitus, type 2, uncontrolled from hyperglycemia and uncontrolled from hypoglycemia. 8. Hyperlipidemia. 9. Essential hypertension. 10.Obstructive sleep apnea. 11.Chronic cervical back pain from arthritis. 12.Troponin leak from congestive heart failure, not acute coronary syndrome. PLAN: Clinically he seems to be getting better. He did have a blip of fever. I think by tomorrow he should be afebrile. Continue with IV Lasix. Follow electrolytes closely. Care was discussed with the patient. JESSICA / IJN: [id number] /
[2018-04-02] MEDS: FUROSEMIDE 10 MG/ML 10 ML VIAL IV SCH ×2 (00:49→10:19)
[2018-04-02] MEDS: IPRATROPIUM-ALBUTEROL 3 ML NEB INHALATION SCH ×5 (03:20→20:52)
[2018-04-02] MEDS: oxyCODONE-APAP 10-325MG 1 EACH TAB PO PRN ×3 (03:53→21:53)
[2018-04-02] MEDS ORDERED: diphenhydrAMINE 25 MG CAP PO PRN (04:41)
[2018-04-02 05:47] LABS: Glucose,Whole Blood 206 mg/dL (75-99)
[2018-04-02] MEDS: PANTOPRAZOLE 40 MG TABLET PO SCH (07:00)
[2018-04-02] MEDS: INSULIN ASPART 100 UNIT/ML 1 ML 10 ML VIAL SQ SCH ×7 (07:00→21:36)
[2018-04-02] MEDS: ATORVASTATIN 80 MG TAB PO SCH (08:07)
[2018-04-02] MEDS: MAGNESIUM OXIDE 400 MG TAB PO SCH ×3 (08:07→22:12)
[2018-04-02] MEDS: DULoxetine HCL 30 MG CAPSULE.DR PO SCH ×2 (08:07→22:12)
[2018-04-02] MEDS: ASPIRIN 81 MG PO SCH (08:07)
[2018-04-02] MEDS: ENOXAPARIN 40 MG/0.4 ML SYRINGE SQ SCH (08:07)
[2018-04-02] MEDS: NON-FORMULARY DRUG (Lubiprostone [Amitiza] 24 MCG) PO SCH (08:08)
[2018-04-02] MEDS: BUDESONIDE 1 MG/2 ML NEBU INHALATION SCH ×2 (08:17→20:52)
[2018-04-02] MEDS ORDERED: VANCOMYCIN TROUGH DUE 1 EACH MISC MISCELLANE ONE (10:00)
[2018-04-02] MEDS: SACUBITRIL/VALSARTAN 49 MG-51 MG TABLET PO SCH ×2 (10:19→22:13)
[2018-04-02] MEDS: METOPROLOL TARTRATE 50 MG TAB PO SCH ×3 (10:20→21:53)
[2018-04-02] MEDS: SPIRONOLACTONE 25 MG TAB PO SCH ×3 (10:20→21:38)
[2018-04-02 10:25] LABS: Calcium 8.3 mg/dL (8.4-10.2); Potassium 3.4 mmol/L (3.5-5.1)
[2018-04-02] MEDS: POTASSIUM CHLORIDE ER 20 MEQ TAB.ER PO SCH ×3 (10:36→13:08)
[2018-04-02] MEDS: MAGNESIUM SULFATE-D5W PMX 1 GM in DEXTROSE/WATER 1 100ML.BAG IVPB SCH ×2 (10:36→17:54)
[2018-04-02 10:42] LABS: HCT 32.8 % (39.0-53.0); HGB 11.1 gm/dL (13.0-17.5); MCH 29.8 pg (25.0-35.0); MCV 87.6 fL (80.0-100.0); Mean Platelet Volume 9.2; Platelet Count 157 k/uL (150-450); RBC 3.74 m/uL (4.30-5.90); RDW 12.9 % (11.5-15.5); WBC 9.5 k/uL (3.8-10.6)
[2018-04-02 11:27] LABS: Glucose,Whole Blood 259 mg/dL (75-99)
[2018-04-02] MEDS: VANCOMYCIN 1,750 MG in SODIUM CHLORIDE 0.9% 500 ML IVPB SCH ×2 (11:42→22:13)
[2018-04-02] MEDS: FUROSEMIDE 80 MG TAB PO SCH (15:27)
[2018-04-02 16:24] LABS: Glucose,Whole Blood 71 mg/dL (75-99)
--- NOTE | 2018-04-02 17:44 | PN ---
PROGRESS NOTE Mr. Haynes is a patient with nonischemic cardiomyopathy. He is admitted to the hospital with exacerbation of CHF. However, he had a run of wide QRS tachycardia, nonsustained. Electrolyte review suggests lower magnesium and potassium levels. I am recommending that we aggressively supplement magnesium and potassium, hold Entresto for lower blood pressure and decrease beta leah. Vitals are stable. JVD of 1 cm. No carotid bruit. S1, S2 heard normally. Distant heart sounds. Short systolic murmur. Lungs reveal improved air entry. Abdomen and lower extremity exam is unchanged. Plan is to hold Entresto for lower blood pressure, supplement magnesium and potassium. Continue telemetry, see how he does. Overall prognosis is guarded. Patient does have an ICD in place. MMODL / IJN: [id number] /
--- NOTE | 2018-04-02 19:01 | PN ---
PROGRESS NOTE DATE OF SERVICE: April 02, 2018 PRESENTING COMPLAINT: Tired. INTERVAL HISTORY: Patient admitted with CHF exacerbation and COPD exacerbation. Developed cellulitis at the left hand IV site for which he has been on antibiotics. Fevers have now come down. Blood pressure is running a bit on the low side. The patient did have a run of nonsustained ventricular tachycardia. Seen by Dr. Mcnair today and Entresto was held. The patient's redness in the left hand is improving. REVIEW OF SYSTEMS: Done for constitutional, cardiovascular, GI, pulmonary, dermatologic, relevant findings as above. CURRENT MEDICATIONS: Reviewed that include Lipitor, IV ceftazidime, Cymbalta, p.o. Lasix, Levemir, Levaquin, IV vancomycin, Aldactone. PHYSICAL EXAMINATION: VITAL SIGNS: Temperature 96.1, pulse 105, respiratory rate 22, blood pressure 94/56, pulse ox 97 percent on room air. GENERAL APPEARANCE: Sitting at the edge of bed, awake, comfortable. EYES: Pupils are equal. Conjunctivae normal. HEENT external appearance of nose and ears normal. Oral cavity normal. NECK JVD not raised. Mass not palpable. RESPIRATORY: Effort normal. Lungs decreased breath sounds. CARDIOVASCULAR: First and second sounds normal. Some edema present. ABDOMEN: Distended, soft. Liver and spleen not palpable. PSYCHIATRY: Alert and oriented times three. Mood and affect normal. EXTREMITIES: Redness of the left hand continues to improve. Wound becoming more localized. No dry scabs. INVESTIGATIONS: White count 9.5, potassium 3.4, BUN 23, creatinine 1.14. Accu-Cheks 259, 71. ASSESSMENT: 1. Acute on chronic congestive heart failure exacerbation from systolic dysfunction, ejection fraction less than 20% from underlying coronary artery disease, now euvolemic. 2. Acute cellulitis at the IV access of the left hand on the dorsum, continues to improve. No further fever. 3. No pneumonia per Pulmonary. 4. Acute chronic obstructive pulmonary disease exacerbation in an ex-smoker, improving. 5. Acute hypoxic respiratory failure from chronic obstructive pulmonary disease and congestive heart failure exacerbation, improving. 6. Coronary artery disease with prior history of bypass. 7. Diabetes mellitus type 2 uncontrolled from hyperglycemia and uncontrolled from hypoglycemia. 8. Hyperlipidemia. 9. Essential hypertension. 10.Obstructive sleep apnea. 11.Chronic cervical back pain from arthritis. 12.Troponin leak from congestive heart failure, not acute coronary syndrome. 13.Nonsustained ventricular tachycardia. PLAN: Patient Cammie is being held by Cardiology. Given his low EF, coronary artery disease, and nonsustained ventricular tachycardia, the patient already has AICD in place, candidate for . JESSICA / KIRAN: [id number] /
[2018-04-02 21:03] LABS: Glucose,Whole Blood 261 mg/dL (75-99)
[2018-04-02] MEDS: INSULIN DETEMIR 100 UNIT/ML 10 ML VIAL SQ SCH (21:36)
--- NOTE | 2018-04-02 21:56 | PN ---
PROGRESS NOTE DATE OF SERVICE: 04/02/2018 REASON FOR FOLLOWUP: Fever. INTERVAL HISTORY: The patient's overall fever pattern has improved. The last fever was yesterday morning of 101.6. The patient has been breathing comfortably. Denies having any chest pain, shortness of breath or cough. No abdominal pain or any diarrhea. PHYSICAL EXAMINATION: Blood pressure 94/56 with a pulse of 105, temperature 96.1. He is 97% on room air. General description is a middle-aged male lying in bed in no distress. RESPIRATORY SYSTEM: Unlabored breathing with decreased breath sounds in the bases. No wheeze. HEART: S1, S2. Regular rate and rhythm. ABDOMEN: Soft. No tenderness. LABS: Hemoglobin 11.1, white count 9.4, BUN of 23, creatinine 1.14. Blood and sputum culture so far pending. Urine for Legionella antigen was negative. DIAGNOSTIC IMPRESSION AND PLAN: Patient with a fever; source possible atypical pneumonia versus a IV site infection. Blood cultures have been negative so far. The patient will continue vancomycin adjusting antibiotic further on the basis of clinical response. Continue with supportive care. MMODL / IJN: [id number] /
[2018-04-02] MEDS: LEVOFLOXACIN 750 MG TAB PO SCH (22:12)
[2018-04-02] MEDS: DOCUSATE 100 MG CAP PO PRN (22:13)
[2018-04-03] MEDS: IPRATROPIUM-ALBUTEROL 3 ML NEB INHALATION SCH ×6 (00:34→20:34)
[2018-04-03] MEDS: ONDANSETRON 4 MG/2 ML VIAL IVP PRN ×3 (01:10→21:22)
[2018-04-03 03:10] LABS: Glucose,Whole Blood 310 mg/dL (75-99)
[2018-04-03 06:12] LABS: Glucose,Whole Blood 255 mg/dL (75-99)
[2018-04-03 06:37] LABS: HCT 33.7 % (39.0-53.0); HGB 11.2 gm/dL (13.0-17.5); MCH 29.3 pg (25.0-35.0); MCHC 33.1 g/dL (31.0-37.0); MCV 88.4 fL (80.0-100.0); Mean Platelet Volume 8.8; Platelet Count 165 k/uL (150-450); RBC 3.81 m/uL (4.30-5.90); RDW 12.8 % (11.5-15.5); WBC 8.4 k/uL (3.8-10.6)
[2018-04-03] MEDS: PANTOPRAZOLE 40 MG TABLET PO SCH (06:54)
[2018-04-03] MEDS: INSULIN ASPART 100 UNIT/ML 1 ML 10 ML VIAL SQ SCH ×7 (06:54→21:20)
[2018-04-03 06:55] LABS: Anion Gap 8 mmol/L; Blood Urea Nitrogen 23 mg/dL (9-20); Calcium 8.4 mg/dL (8.4-10.2); Carbon Dioxide 30 mmol/L (22-30); Chloride 95 mmol/L (98-107); Glucose 249 mg/dL (74-99); Magnesium 2.4 mg/dL (1.6-2.3); Potassium 4.4 mmol/L (3.5-5.1); Sodium 133 mmol/L (137-145)
[2018-04-03] MEDS: BUDESONIDE 1 MG/2 ML NEBU INHALATION SCH ×2 (07:04→20:34)
[2018-04-03] MEDS: oxyCODONE-APAP 10-325MG 1 EACH TAB PO PRN (09:42)
[2018-04-03] MEDS: METOPROLOL TARTRATE 50 MG TAB PO SCH ×2 (09:43→21:20)
[2018-04-03] MEDS: ATORVASTATIN 80 MG TAB PO SCH (09:43)
[2018-04-03] MEDS: ASPIRIN 81 MG PO SCH (09:43)
[2018-04-03] MEDS: DULoxetine HCL 30 MG CAPSULE.DR PO SCH ×2 (09:43→21:20)
[2018-04-03] MEDS: FUROSEMIDE 80 MG TAB PO SCH (09:44)
[2018-04-03] MEDS: NON-FORMULARY DRUG (Lubiprostone [Amitiza] 24 MCG) PO SCH (09:44)
[2018-04-03] MEDS: ENOXAPARIN 40 MG/0.4 ML SYRINGE SQ SCH (09:44)
[2018-04-03] MEDS: MAGNESIUM OXIDE 400 MG TAB PO SCH ×3 (09:44→10:03)
[2018-04-03] MEDS: VANCOMYCIN 1,750 MG in SODIUM CHLORIDE 0.9% 500 ML IVPB SCH ×2 (10:46→21:48)
[2018-04-03] MEDS: SPIRONOLACTONE 25 MG TAB PO SCH ×2 (10:49→18:18)
[2018-04-03] MEDS: DOCUSATE 100 MG CAP PO PRN (10:55)
[2018-04-03] MEDS: SACUBITRIL/VALSARTAN 49 MG-51 MG TABLET PO SCH (12:05)
[2018-04-03 12:32] LABS: Glucose,Whole Blood 182 mg/dL (75-99)
[2018-04-03] MEDS: POTASSIUM CHLORIDE ER 20 MEQ TAB.ER PO SCH (12:58)
[2018-04-03 13:27] VITALS: BMI 37.2
--- NOTE | 2018-04-03 15:03 | PN ---
PROGRESS NOTE This is a gentleman with nonischemic cardiomyopathy who had runs of wide QRS tachycardia yesterday. With supplementation of magnesium and potassium, this arrhythmia has resolved. He feels better, but blood pressure is low. I will cut back on the Lasix and give Entresto at a lower dose if pressure is more than 95 systolic. Patient has an IV site in area of infection. For this, he is receiving antibiotics. I am recommending that from a cardiac standpoint, we will make some adjustment in medications by decreasing the diuretic and Crestor and readjust the parameters. Blood pressure is about 90 systolic. S1-S2 heard normally,. short systolic murmur noted. Lungs reveal diminished air entry. Abdomen and lower extremity exam is unchanged. Prognosis remains guarded. We will cut back the diuretics, decrease Entresto and see how he does. Overall prognosis is poor. MMODL / IJN: [id number] /
[2018-04-03] MEDS: FUROSEMIDE 40 MG TAB PO SCH ×2 (16:07→18:17)
--- NOTE | 2018-04-03 17:15 | PN ---
PROGRESS NOTE DATE OF SERVICE: 04/03/2018 REASON FOR FOLLOWUP: 1. Fever and possible left hand IV site cellulitis. 2. Possible pneumonia. INTERVAL HISTORY: The patient is currently afebrile. He is breathing comfortably. Denies significant chest pain or shortness of breath or cough. Still complains of some pain to the left hand dorsum area and the previous IV site remains inflamed. Complaining of weakness, being tired and no energy. PHYSICAL EXAMINATION: Blood pressure 101/61 with a pulse of 105, temperature of 98. He is 97% on room air. General description is a middle-aged male up in the bed in no distress. RESPIRATORY SYSTEM: Unlabored breathing with decreased breath sounds at the bases. No wheeze. HEART: S1, S2. Regular rate and rhythm. ABDOMEN: Soft. No tenderness. Left hand dorsum did have small punctate wound with minimal surrounding erythema. No drainage. LABS: BUN of 23, creatinine 0.98, hemoglobin 11.2, white count of 8.4. DIAGNOSTIC IMPRESSION AND PLAN: Patient with a fever. Source is multifactorial in this patient with a possible component of left hand IV site cellulitis plus/minus atypical pneumonia. Patient is currently covered with vancomycin and Levaquin. That will continue. If the culture remains negative for any resistant pathogen, hopefully he will be able to finish therapy with oral antibiotics. Continue with supportive care. MMODL / IJN: [id number] /
[2018-04-03 17:38] LABS: Glucose,Whole Blood 184 mg/dL (75-99)
[2018-04-03] MEDS: SACUBITRIL/VALSARTAN 24 MG-26 MG TABLET PO SCH (18:18)
[2018-04-03 21:19] LABS: Glucose,Whole Blood 94 mg/dL (75-99)
[2018-04-03] MEDS: LEVOFLOXACIN 750 MG TAB PO SCH (21:20)
[2018-04-03] MEDS: INSULIN DETEMIR 100 UNIT/ML 10 ML VIAL SQ SCH (21:20)
[2018-04-03] MEDS: ALPRAZolam 0.5 MG TAB PO PRN (21:22)
--- NOTE | 2018-04-03 23:27 | PN ---
PROGRESS NOTE DATE OF SERVICE: 04/03/2018 PRESENTING COMPLAINT: Tired. INTERVAL HISTORY: Patient presented with CHF and COPD exacerbation, cellulitis of the left hand IV site. Continues to improve. Blood pressure continues to run on the lower side. Otherwise, patient tolerating a diet. REVIEW OF SYSTEMS: Done for constitutional, cardiovascular, GI, pulmonary, dermatological; relevant findings as above. Edema is coming down. CURRENT MEDICATIONS: Reviewed, include: 1. DuoNeb. 2. IV ceftazidime. 3. P.o. Lasix. 4. Entresto. 5. Aldactone. EXAMINATION: Temperature 97, pulse 90, respirations 20, blood pressure 74/52, pulse ox 95% on room air. GENERAL APPEARANCE: Sitting at edge of the bed, awake. EYES: Pupils equal. Conjunctivae normal. HEENT: External nose and ears normal. Oral cavity normal. NECK: JVD not raised. Mass not palpable. RESPIRATORY: Effort normal. LUNGS: Diminished breath sounds. CARDIOVASCULAR: First and second sounds normal. Decreased edema. ABDOMEN: Distended, soft. Liver and spleen not palpable. PSYCHIATRY: Alert and oriented x3. Mood and affect were normal. EXTREMITIES/DERMATOLOGICAL: Redness of the left hand localized to the localized to the wound now. INVESTIGATIONS: White count 8.4, hemoglobin 11.2. Potassium 4.4, BUN 23, creatinine 0.98. ASSESSMENT: 1. Acute on chronic congestive heart failure exacerbation from systolic dysfunction, ejection fraction is 20% from underlying coronary artery disease, now euvolemic. 2. Acute cellulitis with IV access site on the left hand dorsum continuing to improve. No further fever. 3. No pneumonia per Pulmonary. 4. Acute chronic obstructive pulmonary disease exacerbation in an ex-smoker. 5. Acute hypoxic respiratory failure from chronic obstructive pulmonary disease and congestive heart failure exacerbation, improving. 6. Coronary artery disease with prior history of bypass. 7. Diabetes mellitus type 2, uncontrolled from hyperglycemia and hypoglycemia. 8. Hyperlipidemia. 9. Essential hypertension, currently running low blood pressure. 10.Obstructive sleep apnea. 11.Chronic cervical back pain from arthritis. 12.Troponin leak from congestive heart failure, not acute coronary syndrome. 13.Nonsustained ventricular tachycardia episode. PLAN: Continue current treatment plan. Nurse Mae had called me this evening. I told her to check with Cardiology, if they wished to hold off the Entresto or the diuretic. Antibiotics will be able to be switched over to p.o. very shortly. All cultures are coming back otherwise negative. MMODL / IJN: [id number] /
[2018-04-04] MEDS: IPRATROPIUM-ALBUTEROL 3 ML NEB INHALATION SCH ×6 (00:37→20:49)
[2018-04-04] MEDS: oxyCODONE-APAP 10-325MG 1 EACH TAB PO PRN ×2 (04:25→17:27)
[2018-04-04 06:06] LABS: Glucose,Whole Blood 190 mg/dL (75-99)
[2018-04-04] MEDS: ENOXAPARIN 40 MG/0.4 ML SYRINGE SQ SCH (07:57)
[2018-04-04] MEDS: PANTOPRAZOLE 40 MG TABLET PO SCH (07:57)
[2018-04-04] MEDS: ASPIRIN 81 MG PO SCH (07:57)
[2018-04-04] MEDS: METOPROLOL TARTRATE 50 MG TAB PO SCH ×2 (07:57→20:52)
[2018-04-04] MEDS: POTASSIUM CHLORIDE ER 20 MEQ TAB.ER PO SCH (07:57)
[2018-04-04] MEDS: ATORVASTATIN 80 MG TAB PO SCH (07:57)
[2018-04-04] MEDS: DULoxetine HCL 30 MG CAPSULE.DR PO SCH ×2 (07:57→20:53)
[2018-04-04] MEDS: INSULIN ASPART 100 UNIT/ML 1 ML 10 ML VIAL SQ SCH ×7 (07:58→20:53)
[2018-04-04] MEDS: NON-FORMULARY DRUG (Lubiprostone [Amitiza] 24 MCG) PO SCH (07:58)
[2018-04-04] MEDS: BUDESONIDE 1 MG/2 ML NEBU INHALATION SCH ×2 (08:09→20:48)
[2018-04-04 08:28] LABS: Basophils # (A) 0.1 k/uL (0-0.2); Basophils % (A) 1 %; Eosinophils # (A) 0.4 k/uL (0-0.7); Eosinophils % (A) 5 %; HCT 37.7 % (39.0-53.0); HGB 12.1 gm/dL (13.0-17.5); Lymphocytes # (A) 2.1 k/uL (1.0-4.8); Lymphocytes % (A) 25 %; MCH 28.9 pg (25.0-35.0); MCHC 32.2 g/dL (31.0-37.0); MCV 89.7 fL (80.0-100.0); Mean Platelet Volume 9.7; Monocytes # (A) 0.7 k/uL (0-1.0); Monocytes % (A) 8 %; Neutrophils % (A) 60 %; Platelet Count 211 k/uL (150-450); WBC 8.4 k/uL (3.8-10.6)
[2018-04-04 08:45] LABS: Anion Gap 10 mmol/L; Blood Urea Nitrogen 21 mg/dL (9-20); Carbon Dioxide 27 mmol/L (22-30); Chloride 99 mmol/L (98-107); Glucose 192 mg/dL (74-99); Magnesium 2.3 mg/dL (1.6-2.3); Potassium 5.3 mmol/L (3.5-5.1); Sodium 136 mmol/L (137-145)
[2018-04-04] MEDS: FUROSEMIDE 40 MG TAB PO SCH ×2 (09:12→17:16)
[2018-04-04] MEDS: SPIRONOLACTONE 25 MG TAB PO SCH ×2 (09:12→20:53)
[2018-04-04] MEDS: SACUBITRIL/VALSARTAN 24 MG-26 MG TABLET PO SCH ×2 (09:14→20:53)
[2018-04-04] MEDS: MAGNESIUM OXIDE 400 MG TAB PO SCH (10:45)
[2018-04-04] MEDS ORDERED: SACUBITRIL/VALSARTAN 24 MG-26 MG TABLET PO STA (11:25)
[2018-04-04] MEDS: VANCOMYCIN 1,750 MG in SODIUM CHLORIDE 0.9% 500 ML IVPB SCH ×2 (11:36→22:46)
[2018-04-04 11:42] LABS: Glucose,Whole Blood 162 mg/dL (75-99)
--- NOTE | 2018-04-04 12:55 | PN ---
PROGRESS NOTE DATE OF SERVICE: 04/04/2018 REASON FOR FOLLOWUP: 1. Left hand dorsum IV site cellulitis. 2. Possible pneumonia. INTERVAL HISTORY: The patient is currently afebrile. He is feeling better. Breathing more comfortably. Denies significant chest pain. Occasional cough. No abdominal pain. Still complains of pain to the left hand dorsum area. PHYSICAL EXAMINATION: Blood pressure is 91/57 with a pulse of 82, temperature of 98.2, he is 94% on room air. General description is a middle-aged male, up in the bed in no distress. RESPIRATORY SYSTEM: Unlabored breathing with decreased breath sounds, no wheeze. HEART: S1, S2. Regular rate and rhythm from the left hand dorsum with an area of in duration and cellulitis at the IV site, but no worsening has been noticed or any drainage. LABS: Hemoglobin is 12 0.1, white count of 8.4, BUN of 21, creatinine 1.09. DIAGNOSTIC IMPRESSION AND PLAN: Patient with a fever with concern of possible IV site cellulitis or pneumonitis. The patient did have extensive workup done with all his cultures remains to be negative. Currently on vancomycin and Fortaz is the patient remains to be afebrile and cultures remain negative. Hopefully finish therapy with oral antibiotics. C Continue with supportive care. MMODL / IJN: [id number] /
--- NOTE | 2018-04-04 15:28 | P.PN ---
Subjective Progress Note Date: 04/04/18 This is a pleasant 47-year-old gentleman with history of nonischemic cardiomyopathy, ventricular tachycardia and chronic systolic congestive heart failure. His blood pressure has been running low. Lasix has been decreased to 40 mg by mouth twice a day and his Entresto has also been decreased. Blood pressure is somewhat better today ranging around 90 systolic. He has not yet received his Entresto. Objective - Vital Signs Vital signs: Vital Signs Temp 98.2 F 04/04/18 11:15 Pulse 104 H 04/04/18 11:51 Resp 16 04/04/18 11:15 BP 83/49 04/04/18 11:15 Pulse Ox 94 L 04/04/18 11:15 Intake & Output 04/03/18 04/04/18 04/04/18 18:59 06:59 18:59 Intake Total 4812 979 7405 Balance 7825 960 3024 Weight 111.1 kg 112.5 kg Intake: IV 610 650 .9 50 Invasive Line 3 10 Vancomycin 1,750 mg In 500 500 Sodium Chloride 0.9% 500 ml @ 167 mls/hr IVPB ONCE ONE Rx#:[id number] cefTAZidime 2 gm In 100 100 Sodium Chloride 0.9% 100 ml @ 100 mls/hr IVPB Q8HR [facility] Rx#:[id number] Oral 1240 600 980 Other: Voiding Method Toilet Toilet Toilet Urinal Urinal Urinal # Voids 1 1 - Exam PHYSICAL EXAMINATION: HEENT: [Head is atraumatic, normocephalic. Pupils equal, round. Neck is supple. There is no elevated jugular venous pressure.] HEART EXAMINATION: [Heart sounds regular, S1 and S2 with a systolic murmur.] CHEST EXAMINATION:[ Lungs reveal diminished air entry. No chest wall tenderness is noted on palpation or with deep breathing.] ABDOMEN: [ Soft, nontender. Bowel sounds are heard. No organomegaly noted]. EXTREMITIES:[ 2+ peripheral pulses with no evidence of peripheral edema and no calf tenderness noted]. NEUROLOGIC [patient is awake, alert and oriented x3.] . - Labs CBC & Chem 7: 04/04/18 07:50 04/04/18 07:50 Labs: Abnormal Lab Results - Last 24 Hours (Table) 04/03/18 04/04/18 04/04/18 Range/Units 17:14 06:00 07:50 RBC 4.20 L (4.30-5.90) m/uL Hgb 12.1 L (13.0-17.5) gm/dL Hct 37.7 L (39.0-53.0) % Sodium (137-145) mmol/L Potassium (3.5-5.1) mmol/L BUN (9-20) mg/dL Glucose (74-99) mg/dL POC Glucose (mg/dL) 184 H 190 H (75-99) mg/dL 04/04/18 04/04/18 Range/Units 07:50 11:36 RBC (4.30-5.90) m/uL Hgb (13.0-17.5) gm/dL Hct (39.0-53.0) % Sodium 136 L (137-145) mmol/L Potassium 5.3 H (3.5-5.1) mmol/L BUN 21 H (9-20) mg/dL Glucose 192 H (74-99) mg/dL POC Glucose (mg/dL) 162 H (75-99) mg/dL Microbiology - Last 24 Hours (Table) 04/04/18 02:04 Gram Stain - Preliminary Hand - Left Wound Culture - Preliminary 04/01/18 20:00 Gram Stain - Final Sputum Sputum Culture - Final Laverne albicans 03/30/18 22:40 Blood Culture - Preliminary Blood No Growth after 96 hours 03/30/18 22:50 Blood Culture - Preliminary Blood No Growth after 96 hours 03/31/18 20:56 Blood Culture - Preliminary Blood No Growth after 72 hours Assessment and Plan Assessment: #1 nonischemic cardiomyopathy #2 acute on chronic systolic congestive heart failure #3 hypertension, currently with hypotension Plan: From cardiology perspective, nursing staff was instructed to administer the Entresto. Follow the patient's blood pressure closely. We anticipate the patient to be discharged in the next 24 hours. We will also decrease the patient's dose of Lipitor. Further recommendations to follow. 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 Patient was seen and examined.
[2018-04-04 17:03] LABS: Glucose,Whole Blood 105 mg/dL (75-99)
[2018-04-04] MEDS: DOCUSATE 100 MG CAP PO PRN (17:16)
[2018-04-04] MEDS: ONDANSETRON 4 MG/2 ML VIAL IVP PRN ×2 (17:27→22:46)
[2018-04-04] MEDS: LEVOFLOXACIN 750 MG TAB PO SCH (20:52)
[2018-04-04] MEDS: INSULIN DETEMIR 100 UNIT/ML 10 ML VIAL SQ SCH (20:53)
[2018-04-04 21:11] LABS: Glucose,Whole Blood 226 mg/dL (75-99)
[2018-04-04] MEDS ORDERED: clonazePAM 0.5 MG TAB PO SCH (22:00)
[2018-04-04] MEDS: ALPRAZolam 0.5 MG TAB PO PRN (23:27)
--- NOTE | 2018-04-04 23:49 | PN ---
PROGRESS NOTE DATE OF SERVICE: 04/04/2018 PRESENTING COMPLAINT: Low blood pressure. INTERVAL HISTORY: Patient presented with CHF, COPD exacerbation and also cellulitis of the left hand at the IV site. Blood pressure appearing low intermittent. Antihypertensives and diuretics are being held per Cardiology. Otherwise, patient tolerating a diet. Edema is slowly going down. REVIEW OF SYSTEMS: Done for constitutional, cardiovascular, GI, pulmonary, dermatologic; relevant findings as above. There is slight localized wound of the IV site. CURRENT MEDICATIONS: Reviewed, include: 1. IV ceftazidime. 2. Levaquin. 3. Vancomycin. EXAMINATION: Temperature 98, pulse 50, respirations 16, blood pressure 103/62, pulse ox 100% on room air. GENERAL APPEARANCE: Sitting up, awake. EYES: Pupils equal. Conjunctivae normal. HEENT: External nose and ears normal. Oral cavity normal. NECK: JVD not raised. Mass not palpable. RESPIRATORY: Effort normal. LUNGS: Diminished breath sounds. CARDIOVASCULAR: First and second sounds normal. Edema present. ABDOMEN: Distended, soft. Liver and spleen not palpable. PSYCHIATRY: Alert and oriented x3. Mood and affect normal. EXTREMITIES: Redness of the left hand localized to a wound on the dorsum. INVESTIGATIONS: White count 8.4, hemoglobin 12.1. BUN 21, creatinine 1.09. ASSESSMENT: 1. Acute on chronic congestive heart failure exacerbation from systolic dysfunction, ejection fraction 20%. 2. Underlying coronary artery disease, much improved. 3. Acute cellulitis at the IV site on the left dorsum of the hand. Continues to improve with localized wound cellulitis area greatly cut back. 4. No pneumonia per Pulmonary. 5. Acute chronic obstructive pulmonary disease exacerbation in an ex-smoker. 6. Acute hypoxic respiratory failure from chronic obstructive pulmonary disease exacerbation and congestive heart failure exacerbation. 7. Coronary artery disease with prior history of coronary artery bypass. 8. Diabetes mellitus type 2, uncontrolled with hyper- and hypoglycemia. 9. Hyperlipidemia. 10.Essential hypertension, currently running low blood pressure. 11.Obstructive sleep apnea. 12.Chronic cervical back pain from arthritis. 13.Troponin leak from congestive heart failure, not acute coronary syndrome. 14.Nonsustained ventricular tachycardia episode. PLAN: Continue current medication and treatment plan. Follow with Cardiology. CHF and antihypertensive medications are being adjusted. Antibiotics should be able to switch to oral. Will discuss with Dr. Santoyo. Hoping patient to be discharged home in the next 24 hours. MMSONALL / KIRAN: [id number] /
[2018-04-05] MEDS: IPRATROPIUM-ALBUTEROL 3 ML NEB INHALATION SCH ×7 (00:16→23:37)
[2018-04-05 06:09] LABS: Glucose,Whole Blood 243 mg/dL (75-99)
[2018-04-05] MEDS: PANTOPRAZOLE 40 MG TABLET PO SCH (07:00)
[2018-04-05] MEDS: INSULIN ASPART 100 UNIT/ML 1 ML 10 ML VIAL SQ SCH ×7 (07:00→21:21)
[2018-04-05] MEDS: BUDESONIDE 1 MG/2 ML NEBU INHALATION SCH ×2 (07:55→20:23)
[2018-04-05] MEDS: METOPROLOL TARTRATE 50 MG TAB PO SCH ×2 (08:46→20:17)
[2018-04-05] MEDS: ASPIRIN 81 MG PO SCH (08:47)
[2018-04-05] MEDS: DULoxetine HCL 30 MG CAPSULE.DR PO SCH ×2 (08:47→20:16)
[2018-04-05] MEDS: ENOXAPARIN 40 MG/0.4 ML SYRINGE SQ SCH (08:47)
[2018-04-05] MEDS: ATORVASTATIN 20 MG TAB PO SCH (08:47)
[2018-04-05] MEDS: NON-FORMULARY DRUG (Lubiprostone [Amitiza] 24 MCG) PO SCH (08:48)
[2018-04-05] MEDS: FUROSEMIDE 40 MG TAB PO SCH ×2 (08:48→15:29)
[2018-04-05] MEDS: SACUBITRIL/VALSARTAN 24 MG-26 MG TABLET PO SCH ×2 (08:48→20:16)
[2018-04-05] MEDS ORDERED: VANCOMYCIN TROUGH DUE 1 EACH MISC MISCELLANE ONE (10:00)
[2018-04-05 10:35] LABS: Basophils # (A) 0.1 k/uL (0-0.2); Basophils % (A) 1 %; Eosinophils # (A) 0.4 k/uL (0-0.7); Eosinophils % (A) 4 %; HCT 34.9 % (39.0-53.0); Hypochromasia Slight; Lymphocytes % (A) 22 %; MCH 28.8 pg (25.0-35.0); MCHC 31.6 g/dL (31.0-37.0); MCV 91.4 fL (80.0-100.0); Mean Platelet Volume 8.4; Monocytes # (A) 0.7 k/uL (0-1.0); Monocytes % (A) 8 %; Neutrophils # (A) 5.8 k/uL (1.3-7.7); Neutrophils % (A) 64 %; Platelet Count 214 k/uL (150-450); RBC 3.82 m/uL (4.30-5.90)
[2018-04-05 10:46] LABS: Anion Gap 11 mmol/L; Blood Urea Nitrogen 21 mg/dL (9-20); Calcium 8.8 mg/dL (8.4-10.2); Carbon Dioxide 27 mmol/L (22-30); Chloride 99 mmol/L (98-107); Glucose 162 mg/dL (74-99); Magnesium 2.1 mg/dL (1.6-2.3); Potassium 4.9 mmol/L (3.5-5.1); Sodium 137 mmol/L (137-145)
[2018-04-05 12:14] LABS: Glucose,Whole Blood 233 mg/dL (75-99)
[2018-04-05] MEDS: MAGNESIUM OXIDE 400 MG TAB PO SCH (12:18)
[2018-04-05] MEDS: POTASSIUM CHLORIDE ER 20 MEQ TAB.ER PO SCH (12:19)
[2018-04-05] MEDS: VANCOMYCIN 1,750 MG in SODIUM CHLORIDE 0.9% 500 ML IVPB SCH (12:19)
[2018-04-05] MEDS: SPIRONOLACTONE 25 MG TAB PO SCH ×2 (12:19→20:16)
[2018-04-05] MEDS: DOCUSATE 100 MG CAP PO PRN (12:20)
[2018-04-05] MEDS: ONDANSETRON 4 MG/2 ML VIAL IVP PRN (12:25)
--- NOTE | 2018-04-05 12:35 | P.PN ---
Subjective Progress Note Date: 04/05/18 This is a pleasant 47-year-old gentleman with history of nonischemic cardiomyopathy, ventricular tachycardia and chronic systolic congestive heart failure. His blood pressure has been running low. Lasix has been decreased to 40 mg by mouth twice a day and his Entresto has also been decreased. Blood pressure is somewhat better today ranging around 90 systolic. He has been tolerating the lower dose of Entresto. He continues to be on IV antibiotics which is being managed by infectious disease. Potassium today is 4.9. Objective - Vital Signs Vital signs: Vital Signs Temp 97.5 F L 04/05/18 08:45 Pulse 88 04/05/18 11:47 Resp 17 04/05/18 08:45 BP 98/57 04/05/18 08:45 Pulse Ox 98 04/05/18 08:45 Intake & Output 04/04/18 04/05/18 04/05/18 18:59 06:59 18:59 Intake Total 2540 600 116 Output Total 450 600 Balance 2090 0 116 Weight 111.4 kg Intake: IV 1320 600 .9 120 600 Vancomycin 1,750 mg In 1000 Sodium Chloride 0.9% 500 ml @ 167 mls/hr IVPB ONCE ONE Rx#:[id number] cefTAZidime 2 gm In 200 Sodium Chloride 0.9% 100 ml @ 100 mls/hr IVPB Q8HR [facility] Rx#:[id number] Oral 1220 116 Output: Urine 450 600 Other: Voiding Method Toilet Toilet Urinal Urinal Urinal # Voids 1 - Exam PHYSICAL EXAMINATION: HEENT: [Head is atraumatic, normocephalic. Pupils equal, round. Neck is supple. There is no elevated jugular venous pressure.] HEART EXAMINATION: [Heart sounds regular, S1 and S2 with a systolic murmur.] CHEST EXAMINATION:[ Lungs reveal diminished air entry. No chest wall tenderness is noted on palpation or with deep breathing.] ABDOMEN: [ Soft, nontender. Bowel sounds are heard. No organomegaly noted]. EXTREMITIES:[ 2+ peripheral pulses with no evidence of peripheral edema and no calf tenderness noted]. NEUROLOGIC [patient is awake, alert and oriented x3.] . - Labs CBC & Chem 7: 04/05/18 09:48 04/05/18 09:48 Labs: Abnormal Lab Results - Last 24 Hours (Table) 04/04/18 04/04/18 04/05/18 Range/Units 16:59 20:47 05:50 RBC (4.30-5.90) m/uL Hgb (13.0-17.5) gm/dL Hct (39.0-53.0) % BUN (9-20) mg/dL Glucose (74-99) mg/dL POC Glucose (mg/dL) 105 H 226 H 243 H (75-99) mg/dL 04/05/18 04/05/18 04/05/18 Range/Units 09:48 09:48 11:51 RBC 3.82 L (4.30-5.90) m/uL Hgb 11.0 L (13.0-17.5) gm/dL Hct 34.9 L (39.0-53.0) % BUN 21 H (9-20) mg/dL Glucose 162 H (74-99) mg/dL POC Glucose (mg/dL) 233 H (75-99) mg/dL Microbiology - Last 24 Hours (Table) 03/30/18 22:40 Blood Culture - Preliminary Blood No Growth after 120 hours 03/30/18 22:50 Blood Culture - Preliminary Blood No Growth after 120 hours 03/31/18 20:56 Blood Culture - Preliminary Blood No Growth after 96 hours 04/04/18 02:04 Gram Stain - Preliminary Hand - Left Wound Culture - Preliminary 04/01/18 20:00 Gram Stain - Final Sputum Sputum Culture - Final Laverne albicans Assessment and Plan Assessment: #1 nonischemic cardiomyopathy #2 acute on chronic systolic congestive heart failure #3 hypertension, currently with hypotension Plan: From cardiology perspective, patient is stable to be discharged home. He will be discharged on aspirin 81 mg by mouth daily, Lipitor 20 mg by mouth daily, Lasix 40 mg by mouth twice a day, metoprolol tartrate 50 mg by mouth twice a day , potassium chloride 10 mEq daily Aldactone 12.5 mg by mouth twice a day and Entresto 24/26mg BID. He will follow-up in the office with his primary bottom bleacher. HOOP COILING MACHINE OPERATOR note has been reviewed, I agree with a documented findings and plan of care. Patient was seen and examined.
[2018-04-05] MEDS: ALPRAZolam 0.5 MG TAB PO PRN (15:29)
[2018-04-05 16:43] LABS: Glucose,Whole Blood 124 mg/dL (75-99)
[2018-04-05] MEDS: oxyCODONE-APAP 10-325MG 1 EACH TAB PO PRN (18:57)
[2018-04-05] MEDS: LEVOFLOXACIN 750 MG TAB PO SCH (20:15)
[2018-04-05] MEDS: INSULIN DETEMIR 100 UNIT/ML 10 ML VIAL SQ SCH (21:25)
[2018-04-05 21:29] LABS: Glucose,Whole Blood 113 mg/dL (75-99)
--- NOTE | 2018-04-05 23:05 | PN ---
PROGRESS NOTE DATE OF SERVICE: 04/05/2018 PRESENTING COMPLAINT: Tired. INTERVAL HISTORY: Patient presented with CHF, COPD exacerbation, still redness of the left hand at the IV site. Antihypertensives and diuretics were adjusted further by Cardiology. Continues to do better. IV antibiotics to continue per Infectious Disease. Overall, patient looking much better, up and about. REVIEW OF SYSTEMS: Done for constitutional, cardiovascular, GI, pulmonary, dermatologic; relevant findings as above. CURRENT MEDICATIONS: Reviewed that include: 1. IV ceftazidime. 2. Lasix 40 mg b.i.d. 3. P.o. Levaquin. 4. IV vancomycin and. 5. Crestor . EXAMINATION: Temperature 97.5 pulse 99, respirations 18, blood pressure 86/57, pulse ox 95% on room air. GENERAL APPEARANCE: Sitting at the edge of bed, awake. EYES: Pupils equal. Conjunctivae normal. HEENT: External appearance of nose and ears normal. Oral cavity normal. NECK: JVD not raised. Mass not palpable. RESPIRATORY: Effort normal. LUNGS: Diminished breath sounds. CARDIOVASCULAR: First and second sounds normal. Edema present. ABDOMEN: Distended, soft. Liver and spleen not palpable. PSYCHIATRY: Alert and oriented x3. Mood normal. EXTREMITIES: Redness small, more localized to the IV site. Continues to improve. INVESTIGATIONS: White count 9, hemoglobin 11. Potassium 4.9. ASSESSMENT: 1. Acute on chronic congestive heart failure exacerbation from systolic dysfunction, ejection fraction 20% from underlying coronary artery disease, stabilized. 2. Acute cellulitis at the IV site of left dorsum of the hand, much improved. 3. No pneumonia per Pulmonary. 4. Acute chronic obstructive pulmonary disease exacerbation in an ex-smoker. 5. Acute hypoxic respiratory failure from chronic obstructive pulmonary disease exacerbation and congestive heart failure exacerbation. 6. Coronary artery disease with prior history of coronary artery bypass. 7. Diabetes mellitus type 2, uncontrolled, with hyper- and hypoglycemia. 8. Hyperlipidemia. 9. Essential hypertension, currently blood pressure running low. 10.Obstructive sleep apnea. 11.Chronic cervical back pain from arthritis. 12.Troponin leak from congestive heart failure, not acute coronary syndrome. 13.Nonsustained ventricular tachycardia. PLAN: Per Cardiology. The current medications stabilized. Will check with Dr. Santoyo about p.o. antibiotics and hopefully can be discharged tomorrow. MMODL / IJN: [id number] /
[2018-04-06] MEDS: ONDANSETRON 4 MG/2 ML VIAL IVP PRN ×2 (00:13→10:58)
[2018-04-06] MEDS: VANCOMYCIN 1,750 MG in SODIUM CHLORIDE 0.9% 500 ML IVPB SCH ×2 (00:14→11:02)
[2018-04-06] MEDS: oxyCODONE-APAP 10-325MG 1 EACH TAB PO PRN ×2 (01:13→07:54)
[2018-04-06] MEDS: IPRATROPIUM-ALBUTEROL 3 ML NEB INHALATION SCH ×5 (03:38→20:00)
[2018-04-06] MEDS: ENOXAPARIN 40 MG/0.4 ML SYRINGE SQ SCH (07:08)
[2018-04-06] MEDS: SACUBITRIL/VALSARTAN 24 MG-26 MG TABLET PO SCH (07:08)
[2018-04-06] MEDS: ASPIRIN 81 MG PO SCH (07:09)
[2018-04-06] MEDS: POTASSIUM CHLORIDE ER 20 MEQ TAB.ER PO SCH (07:09)
[2018-04-06] MEDS: DULoxetine HCL 30 MG CAPSULE.DR PO SCH (07:09)
[2018-04-06] MEDS: PANTOPRAZOLE 40 MG TABLET PO SCH (07:09)
[2018-04-06] MEDS: SPIRONOLACTONE 25 MG TAB PO SCH (07:09)
[2018-04-06] MEDS: FUROSEMIDE 40 MG TAB PO SCH ×2 (07:09→15:45)
[2018-04-06] MEDS: METOPROLOL TARTRATE 50 MG TAB PO SCH (07:09)
[2018-04-06] MEDS: ATORVASTATIN 20 MG TAB PO SCH (07:09)
[2018-04-06 07:45] VITALS: RESP 18
[2018-04-06 07:52] LABS: Glucose,Whole Blood 199 mg/dL (75-99)
[2018-04-06] MEDS: INSULIN ASPART 100 UNIT/ML 1 ML 10 ML VIAL SQ SCH ×6 (07:54→17:29)
[2018-04-06] MEDS: NON-FORMULARY DRUG (Lubiprostone [Amitiza] 24 MCG) PO SCH (08:04)
[2018-04-06] MEDS: BUDESONIDE 1 MG/2 ML NEBU INHALATION SCH ×2 (09:00→20:00)
[2018-04-06 12:37] LABS: Glucose,Whole Blood 108 mg/dL (75-99)
[2018-04-06] MEDS: MAGNESIUM OXIDE 400 MG TAB PO SCH (12:37)
[2018-04-06 14:43] VITALS: TEMP 98.6
[2018-04-06 15:40] LABS: Glucose,Whole Blood 77 mg/dL (75-99)
[2018-04-06 15:43] VITALS: BP 105/73
[2018-04-06] MEDS ORDERED: BACITRACIN OINT 1 EACH PACKET TOPICAL SCH (16:00)
[2018-04-06 16:06] VITALS: PULSE 102
[2018-04-06 16:47] LABS: Glucose,Whole Blood 114 mg/dL (75-99)
--- NOTE | 2018-04-06 19:58 | PN ---
PROGRESS NOTE DATE OF SERVICE: 04/06/2018. REASON FOR FOLLOWUP VISIT: 1. Fever. Source is likely left IV site cellulitis. 2. Pneumonia, rule out. INTERVAL HISTORY: The patient is currently afebrile. He is feeling much better. The patient denies having any chest pain. No shortness of breath or cough. No abdominal pain. The left hand dorsum area swelling and redness have improved. EXAMINATION: Blood pressure is 91/58 with a pulse of 84, temperature 98.6. He is 96% on room air. General description is a middle-aged male lying in bed in no distress. RESPIRATORY SYSTEM: Unlabored breathing. Clear to auscultation anteriorly. HEART: S1, S2. Regular rate and rhythm. ABDOMEN: Soft, no tenderness. Left hand swelling and redness decreased, no drainage. LABS: White count normal at 9.0. Blood culture negative. Left hand wound culture showing a Staph aureus. DIAGNOSTIC IMPRESSION AND PLAN: Patient is fever source could be left hand IV site cellulitis. Cultures remain positive for Staph aureus. Plan will be to finish therapy with oral doxycycline 100 mg twice a day for a week with close outpatient followup. Continue supportive care. MMODL / IJN: [id number] /
--- NOTE | 2018-04-07 09:07 | CDI ---
Last Revision, June 2017 Documentation Clarification Form Date: 04/07/2018 8:47:57 AM From: Analia Elliott Phone: If you have a question about this query, please contact [employer] at [phone] between 8am and 5pm. Admit Date: 03/28/2018 5:54:00 AM Patient Name: Ezequiel Haynes Visit Number: [id number] Discharge Date: 04/06/18 ATTENTION: The Clinical Documentation Specialists (CDI) and [facility] Coding Staff appreciate your assistance in clarifying documentation. Please respond to the clarification below the line at the bottom and electronically sign. The CDI & [facility] Coding staff will review the response and follow-up if needed. Please note: Queries are made part of the Legal Health Record. If you have any questions, please contact the author of this message via ITS. Buck You MD Documentation of sepsis in 03/29 PN and in H and P: Troponin leak from sepsis, CHF. History/Risk Factors: Patient has left hand cellulitis from IV WBC/Left Shift 19.0 Vitals signs on admission: 102.7F HR 115, RR 22 BP 108/56 O2 Sat 96 on RA Acute/Chronic CHF systolic, COPD exacerbation, Acute hypoxic respiratory failure , troponin leak and elevated WBC's Workup: Blood cultures ID Consult: For fever Antibiotics: vancomycin and Levaquin In your professional opinion, please clarify if these findings signify one of the following conditions: Sepsis ruled out SIRS, without underlying infectious process Sepsis confirmed or possible Severe Sepsis Septic Shock Other, please specify Unable to determine MTDD
--- NOTE | 2018-04-13 13:38 | DS ---
DISCHARGE SUMMARY DATE OF ADMISSION: 03/28/2018. DATE OF DISCHARGE: 04/06/2018. FINAL DIAGNOSES: 1. Acute on chronic congestive heart failure exacerbation from systolic dysfunction, ejection fraction 20% from underlying coronary artery disease, present on admission. 2. Acute cellulitis at the IV site in the dorsum left hand causing sepsis, present on admission. 3. Acute chronic obstructive pulmonary disease exacerbation in an ex smoker, present on admission. 4. Acute hypoxic respiratory failure from chronic obstructive pulmonary disease exacerbation and congestive heart failure, present on admission .. 5. Coronary artery disease with prior history of coronary bypass. 6. Diabetes mellitus type 2 uncontrolled with hyper- and hypoglycemia. 7. Hyperlipidemia. 8. Essential hypertension. 9. Obstructive sleep apnea. 10.Chronic cervical back pain from arthritis. 11.Troponin leak from congestive heart failure, not acute coronary syndrome. 12.Episode of nonsustained ventricular tachycardia. CONSULTATION: 1. Dr. Santoyo from Infectious Disease. 2. Dr. Charles Mcnair from Cardiology. 3. Dr. Mancini from Pulmonary. HOSPITAL COURSE: This patient presented with CHF and COPD exacerbation. Responded well to bronchodilators and diuretics. Doing much better at the time of discharge. Did have a chest CTA, no PE was present. A 2D echocardiogram showed EF of less than 20%. The patient also has a wound on the dorsum of the left hand causing initial sepsis, appears to be the IV site, greatly improved by the time of discharge with minimal local tenderness and redness present before discharge. EXAMINATION: Afebrile, pulse 84, respiratory 18, blood pressure 98/58, pulse 96 percent room air. LUNGS: Decreased breath sounds. CARDIOVASCULAR: 1st and 2nd sounds normal. Minimal edema. Dorsal left arm redness greatly improved, minimal crest left. DISCUSSION AND DISCHARGE PLANNING: More than 35 minutes. DISCHARGE MEDICATIONS: 1. Aspirin 81 mg a day. 2. Cymbalta 30 mg b.i.d. 3. Vitamin D 250, 1000 units p.o. weekly. 4. Flonase 1 spray each nostril daily. 5. Advair 100/50 one inhalation p.o. b.i.d. 6. Glucosamine chondroitin 1 tablet p.o. daily. 7. Amitiza 24 mcg p.o. daily. 8. Morphine sulfate 50 mg p.o. q.i.d. p.r.n. 9. [place]-3, 1000 mg p.o. b.i.d. 10.Prilosec 20 mg p.o. daily. 11.Percocet 10 one tab every 6 hours p.r.n. 12.Lipitor 20 mg p.o. daily. 13.Lasix 40 mg p.o. b.i.d. 14.Lopressor 50 mg p.o. b.i.d. 15.Potassium 10 mEq p.o. daily. 16.Crestor one tablet p.o. b.i.d. 17.Aldactone 12.5 p.o. b.i.d. 18.ProAir 2 puffs every 6 hours p.r.n. 19.Bacitracin ointment topical b.i.d. continue as directed. 20.Doxycycline 100 mg p.o. b.i.d. 14 tablets. 21.Humalog 25 units subcutaneously t.i.d. with meals. 22.Insulin Lantus Toujeo 70 units subcutaneously at bedtime. 23.DuoNeb t.i.d. FOLLOWUP: 1. Cardiology in [address] Mancini in [address] Robert Abernathy, nurse practitioner, on 04/11/2018. 4. Dr. Santoyo in 1 week. Left hand dressing to wound Bacitracin twice daily. MMODL / IJN: [id number] /
== END 2018-04-06 20:03 | disposition home or self-care (01) | DRG 871 ==
LOC: EC 04:38 → SUPCPDRO 04:38 → 6ICU 05:54 → 6SEL 09:13 → 4MS4W 04-05 22:15
PROVIDERS: ADMIT Hospitalist; ATTEND Hospitalist
DX: A41.9 Sepsis, unspecified organism (principal); J96.01 Acute respiratory failure with hypoxia; I50.23 Acute on chronic systolic (congestive) heart failure; I16.1 Hypertensive emergency; J44.1 Chronic obstructive pulmonary disease with (acute) exacerbation; J45.901 Unspecified asthma with (acute) exacerbation; I47.2 Ventricular tachycardia; J98.11 Atelectasis; L03.114 Cellulitis of left upper limb; I47.1 Supraventricular tachycardia; I42.0 Dilated cardiomyopathy; I11.0 Hypertensive heart disease with heart failure; E11.649 Type 2 diabetes mellitus with hypoglycemia without coma; E11.65 Type 2 diabetes mellitus with hyperglycemia; E78.5 Hyperlipidemia, unspecified; F17.200 Nicotine dependence, unspecified, uncomplicated; F41.9 Anxiety disorder, unspecified; F90.9 Attention-deficit hyperactivity disorder, unspecified type; G47.33 Obstructive sleep apnea (adult) (pediatric); G89.29 Other chronic pain; I08.1 Rheumatic disorders of both mitral and tricuspid valves; I25.10 Atherosclerotic heart disease of native coronary artery without angina pectoris; I25.2 Old myocardial infarction; I25.5 Ischemic cardiomyopathy; K21.9 Gastro-esophageal reflux disease without esophagitis; M47.9 Spondylosis, unspecified; Z98.1 Arthrodesis status; Y84.8 Other medical procedures as the cause of abnormal reaction of the patient, or of later complication, without mention of misadventure at the time of the procedure; Z79.4 Long term (current) use of insulin; Z79.82 Long term (current) use of aspirin; Z79.899 Other long term (current) drug therapy; Z81.1 Family history of alcohol abuse and dependence; Z95.1 Presence of aortocoronary bypass graft; Z95.810 Presence of automatic (implantable) cardiac defibrillator; Z71.6 Tobacco abuse counseling; F17.210 Nicotine dependence, cigarettes, uncomplicated; E66.01 Morbid (severe) obesity due to excess calories; Z68.37 Body mass index [BMI] 37.0-37.9, adult; Z88.8 Allergy status to other drugs, medicaments and biological substances; R74.8 Abnormal levels of other serum enzymes
CPT/HCPCS: 36415; 71045; 71046; 71275; 80048; 80053; 80202; 81003; 82550; 82553; 83036; 83605; 83735; 83880; 84484; 85025; 85027; 85379; 85610; 85730; 87040; 87070; 87077; 87186; 87205; 87449; 87502; 93005; 93306; 93970; 94640; 94660; 94760; 96365; 96366; 96375; 99291

== ENCOUNTER 2018-05-03 09:37 | Inpatient (IN) | payer MEDICARE ==
--- NOTE | 2018-05-03 09:54 | ED ---
General Adult HPI - General Chief complaint: Shortness of Breath Stated complaint: SOB Time Seen by Provider: 05/03/18 09:40 Source: EMS, RN notes reviewed Mode of arrival: EMS Limitations: no limitations - History of Present Illness Initial comments: This is a 47-year-old male who has a past medical history significant for smoking COPD and asthma congestive heart failure and has had a heart attack. She comes in today complaining that he is short of breath and it is been worsening over the last 24 hours. Patient states she had [address] and he feels considerably better. Patient states he is also been coughing up a lot of junk lately. He denies any fever or chills. Patient denies any chest pain or palpitations. Patient denies any back pain. Patient denies being lightheaded or dizzy. Patient denies any near syncopal episode. Patient denies headache patient denies numbness weakness. Patient denies abdominal pain patient denies nausea vomiting or diarrhea. Patient denies any recent injury or trauma. Patient denies any increase in leg swelling or calf tenderness. - Related Data Home Medications Medication Instructions Recorded Confirmed Aspirin 81 mg PO DAILY 10/21/15 04/30/18 DULoxetine HCL [Cymbalta] 30 mg PO BID 03/28/18 04/30/18 Ergocalciferol (Vitamin D2) 50,000 unit PO WEEKLY 03/28/18 04/30/18 [Vitamin D2] Fluticasone Nasal [place] [Flonase 1 spray EA NOSTRIL DAILY 03/28/18 04/30/18 Nasal [place]] Fluticasone/Salmeterol [Advair 1 inhalation PO RT-BID 03/28/18 04/30/18 100-50 Diskus] Glucosam/Loc-Msm1/C/Som/Bosw 1 tab PO DAILY 03/28/18 04/30/18 [Fmljxxlwpvt-Pwzqmehnqbk-UKP Tb] Lubiprostone [Amitiza] 24 mcg PO DAILY 03/28/18 04/30/18 Morphine Sulfate 15 mg PO QID PRN 03/28/18 04/30/18 [place]-3 Fatty Acids [[place]-3] 1,000 mg PO BID 03/28/18 04/30/18 Omeprazole [PriLOSEC] 20 mg PO DAILY 03/28/18 04/30/18 oxyCODONE HCL/ACETAMINOPHEN 1 tab PO Q6HR PRN 03/28/18 04/30/18 [Percocet 10-325 mg] Previous Rx's Medication Instructions Recorded Atorvastatin [Lipitor] 20 mg PO DAILY #30 tab 04/05/18 Furosemide [Lasix] 40 mg PO BID@0900,1600 #60 tab 04/05/18 Metoprolol Tartrate [Lopressor] 50 mg PO BID #60 tab 04/05/18 Potassium Chloride ER [K-Dur 20] 10 meq PO DAILY #30 tab.er.prt 04/05/18 Sacubitril/Valsartan [Entresto 24 1 each PO BID #60 tablet 04/05/18 mg-26 mg Tablet] Spironolactone [Aldactone] 12.5 mg PO BID #60 tab 04/05/18 Albuterol Sulfate [Proair Hfa] 2 puff INHALATION RT-Q6H PRN #1 04/06/18 hfa.aer.ad Bacitracin Oint 0 applic TOPICAL BID #1 gm 04/06/18 Doxycycline Hyclate 100 mg PO BID #14 tab 04/06/18 INSULIN LISPRO (HumaLOG) [humaLOG] 25 unit SQ TID-W/MEALS #0 04/06/18 Insulin Glargine,Hum.rec.anlog 70 units SQ HS #0 04/06/18 [Toujeo Solostar] Ipratropium-Albuterol Nebulize 3 ml INHALATION RT-TID #90 04/06/18 [Duoneb 0.5 mg-3 mg/3 ml Soln] ampul.neb Allergies Allergy/AdvReac Type Severity Reaction Status Date / Time azithromycin Allergy Anaphylaxis Verified 04/30/18 14:34 gemfibrozil [From Lopid] Allergy Rash/Hives Verified 04/30/18 14:34 Review of Systems ROS Statement: Those systems with pertinent positive or pertinent negative responses have been documented in the HPI. ROS Other: All systems not noted in ROS Statement are negative. Past Medical History Past Medical History: Asthma, Coronary Artery Disease (CAD), Chest Pain / Angina , Heart Failure, COPD, Diabetes Mellitus, GERD/Reflux, Hyperlipidemia, Hypertension, Myocardial Infarction (LA), Pneumonia, Sleep Apnea/CPAP/BIPAP, Supraventricular Tachycardia (SVT) Additional Past Medical History / Comment(s): Ischemic cardiomyopathy, chronic CHF, SVT, IDDM type II, KAMINI with CPAP occasionally used, chronic cervical/back pain-pt states he is no longer taking his morphine for pain, DJD Last Myocardial Infarction Date:: 12/11/17 History of Any Multi-Drug Resistant Organisms: None Reported Past Surgical History: Adenoidectomy, AICD, Back Surgery, Cholecystectomy, EPS, Heart Catheterization, Pacemaker, Tonsillectomy Additional Past Surgical History / Comment(s): 12/10/17 cardiac cath, previous cardiac cath, 09/02/14 AICD/pacer, EGD/colonoscopy, low back surgery with fusion. Past Anesthesia/Blood Transfusion Reactions: Motion Sickness Additional Past Anesthesia/Blood Transfusion Reaction / Comment(s): Pt states he received blood with back surgery without reaction. Type of Cardiac Device: Permanent Pacemaker, AICD Device Placement Date:: 09-02-14 Past Psychological History: ADD/ADHD, Anxiety Smoking Status: Former smoker Past Alcohol Use History: None Reported Past Drug Use History: None Reported - Past Family History Father Additional Family Medical History / Comment(s): Pt has not kept in close contact with his father for many yrs. Father was an alcoholic and pt believes he has from cirrhosis of the liver. Mother History Unknown: Yes Additional Family Medical History / Comment(s): Pt is not in contact with his mother or his father who he has heard had . General Exam - General Exam Comments Initial Comments: GENERAL: Patient is well-developed and well-nourished. Patient is nontoxic and well- hydrated and is in ENT: Neck is soft and supple. No significant lymphadenopathy is noted. Oropharynx is clear. Moist mucous membranes. Neck has full range of motion without eliciting any pain. EYES: The sclera were anicteric and conjunctiva were pink and moist. Extraocular movements were intact and pupils were equal round and reactive to light. Eyelids were unremarkable. PULMONARY: Patient has crackles in the left base CARDIOVASCULAR: There is a regular rate and rhythm without any murmurs gallops or rubs. ABDOMEN: Soft and nontender with normal bowel sounds. No palpable organomegaly was noted. There is no palpable pulsatile mass. SKIN: Skin is clear with no lesions or rashes and otherwise unremarkable. NEUROLOGIC: Patient is alert and oriented x3. Cranial nerves II through XII are grossly intact. Motor and sensory are also intact. Normal speech, volume and content. Symmetrical smile. MUSCULOSKELETAL: Normal extremities with adequate strength and full range of motion. No lower extremity swelling or edema. No calf tenderness. LYMPHATICS: No significant lymphadenopathy is noted PSYCHIATRIC: Normal psychiatric evaluation. Limitations: no limitations Course Vital Signs 05/03/18 09:44 Temperature 98.7 F Pulse Rate 122 H Respiratory 20 Rate Blood Pressure 102/58 O2 Sat by Pulse 97 Oximetry Medical Decision Making - Medical Decision Making EKG shows a sinus tachycardia at 119 bpm IA interval 164 QRS is 100 QT interval 324 QTC is 455. Patient's EKG shows no ST segment elevation or depression or T wave abnormalities are noted. Chest x-ray shows a left lower lobe infiltrate. I started the patient on Levaquin and gave the patient a little bit of Lasix. I spoke with Dr. Johnson agreed to admit the patient admitted the patient wrote admitting orders. - Lab Data Result diagrams: 05/03/18 10:04 05/03/18 10:04 Lab Results 05/03/18 05/03/18 05/03/18 Range/Units 10:04 10:04 10:04 WBC 16.9 H (3.8-10.6) k/uL RBC 4.61 (4.30-5.90) m/uL Hgb 13.3 (13.0-17.5) gm/dL Hct 41.8 (39.0-53.0) % MCV 90.6 (80.0-100.0) fL MCH 28.9 (25.0-35.0) pg MCHC 31.9 (31.0-37.0) g/dL RDW 13.3 (11.5-15.5) % Plt Count 220 (150-450) k/uL Neutrophils % 88 % Lymphocytes % 7 % Monocytes % 4 % Eosinophils % 1 % Basophils % 1 % Neutrophils # 14.8 H (1.3-7.7) k/uL Lymphocytes # 1.1 (1.0-4.8) k/uL Monocytes # 0.6 (0-1.0) k/uL Eosinophils # 0.2 (0-0.7) k/uL Basophils # 0.1 (0-0.2) k/uL Sodium 136 L (137-145) mmol/L Potassium 5.4 H (3.5-5.1) mmol/L Chloride 104 (98-107) mmol/L Carbon Dioxide 20 L (22-30) mmol/L Anion Gap 12 mmol/L BUN 27 H (9-20) mg/dL Creatinine 1.13 (0.66-1.25) mg/dL Est GFR (CKD-EPI)AfAm 89 (>60 ml/min/1.73 sqM) Est GFR (CKD-EPI)NonAf 77 (>60 ml/min/1.73 sqM) Glucose 363 H (74-99) mg/dL Calcium 8.8 (8.4-10.2) mg/dL Magnesium 2.0 (1.6-2.3) mg/dL Total Bilirubin 0.5 (0.2-1.3) mg/dL AST 65 H (17-59) U/L ALT 34 (21-72) U/L Alkaline Phosphatase 144 H (38-126) U/L NT-Pro-B Natriuret Pep 2530 pg/mL Total Protein 6.6 (6.3-8.2) g/dL Albumin 3.7 (3.5-5.0) g/dL Disposition Clinical Impression: Pneumonia Disposition: ADMITTED IP TO THIS HOSP Referrals: Hunter Romano MD [Primary Care Provider] - 1-2 days Time of Disposition: 11:07
[2018-05-03 10:17] LABS: Basophils # (A) 0.1 k/uL (0-0.2); Basophils % (A) 1 %; Eosinophils # (A) 0.2 k/uL (0-0.7); Eosinophils % (A) 1 %; HCT 41.8 % (39.0-53.0); HGB 13.3 gm/dL (13.0-17.5); Lymphocytes # (A) 1.1 k/uL (1.0-4.8); Lymphocytes % (A) 7 %; MCH 28.9 pg (25.0-35.0); MCHC 31.9 g/dL (31.0-37.0); MCV 90.6 fL (80.0-100.0); Mean Platelet Volume 8.6; Monocytes # (A) 0.6 k/uL (0-1.0); Monocytes % (A) 4 %; Neutrophils # (A) 14.8 k/uL (1.3-7.7); Neutrophils % (A) 88 %; Platelet Count 220 k/uL (150-450); RBC 4.61 m/uL (4.30-5.90); RDW 13.3 % (11.5-15.5); WBC 16.9 k/uL (3.8-10.6)
[2018-05-03 10:34] LABS: Albumin 3.7 g/dL (3.5-5.0); Calcium 8.8 mg/dL (8.4-10.2); Potassium 5.4 mmol/L (3.5-5.1); Total Bilirubin 0.5 mg/dL (0.2-1.3); Total Protein 6.6 g/dL (6.3-8.2)
--- NOTE | 2018-05-03 10:58 | XR ---
EXAMINATION TYPE: XR chest 2V DATE OF EXAM: 05/03/2018 HISTORY: difficulty breathing. REFERENCE: Previous study dated 03/31/2018. FINDINGS: There is a unipolar pacemaker in place on the left. The lungs are overinflated but clear. Pleural spaces are clear. Heart size is upper limits of normal. IMPRESSION: 1. COPD. 2. BORDERLINE CARDIOMEGALY.
[2018-05-03] MEDS ORDERED: FUROSEMIDE 10 MG/ML 2 ML VIAL IV STA (11:04)
[2018-05-03] MEDS ORDERED: LEVOFLOXACIN 750MG-D5W PMX 750 MG in DEXTROSE/WATER 1 150ML.BAG IVPB STA (11:05)
[2018-05-03] MEDS ORDERED: IPRATROPIUM-ALBUTEROL 3 ML NEB INHALATION PRN (11:07)
[2018-05-03] MEDS ORDERED: PNEUMONIA PROTOCOL UTILIZED 1 EACH MISC PO PRN (11:07)
[2018-05-03 11:11] LABS: Partial Thromboplastin Time 22.5 sec (22.0-30.0); Prothrombin Time 9.5 sec (9.0-12.0)
[2018-05-03 11:26] LABS: Creatine Kinase MB 1.2 ng/mL (0.0-2.4); Troponin I 0.033 ng/mL (0.000-0.034)
[2018-05-03] MEDS: DULoxetine HCL 30 MG CAPSULE.DR PO SCH ×2 (13:18→21:31)
[2018-05-03] MEDS: ATORVASTATIN 20 MG TAB PO SCH (13:18)
[2018-05-03] MEDS: ASPIRIN 81 MG PO SCH (13:18)
[2018-05-03] MEDS ORDERED: FUROSEMIDE 40 MG TAB PO SCH (16:00)
[2018-05-03] MEDS: ALBUTEROL NEBULIZED 2.5 MG/3 ML INHALATION PRN (16:42)
[2018-05-03] MEDS: MORPHINE SULFATE IR 15 MG TABLET PO PRN ×2 (17:36→23:39)
[2018-05-03] MEDS: INSULIN ASPART 100 UNIT/ML 1 ML 10 ML VIAL SQ SCH (17:46)
[2018-05-03 17:54] LABS: Glucose,Whole Blood 351 mg/dL (75-99)
--- NOTE | 2018-05-03 18:36 | HP ---
HISTORY AND PHYSICAL DATE OF ADMISSION: 05/03/2018 DATE OF SERVICE: 05/03/2018 PRESENTING COMPLAINT: Short of breath. HISTORY OF PRESENTING COMPLAINT: This is a 47-year-old patient who was here about a month ago. Patient was then admitted with CHF exacerbation. He has an EF of 20% with underlying coronary artery disease. Patient's chronic stable medical conditions include coronary artery disease, diabetes, hyperlipidemia, hypertension, obstructive sleep apnea, arthritis. Patient has continued to smoke cigarettes. Patient presented with one day of increasing shortness of breath, slight cough. No fever. No chills. Appetite is good. Edema is present. Admitted for the same. He also has some orthopnea. REVIEW OF SYSTEMS: CONSTITUTIONAL: Tired. HEENT: None. RESPIRATORY: As above. CARDIOVASCULAR: No chest pain. GASTROINTESTINAL: As above. GENITOURINARY: None. MUSCULOSKELETAL: Chronic neck pain. DERMATOLOGICAL: None. HEMATOLOGICAL: None. LYMPHATICS: None. PSYCHIATRY: None. NEUROLOGICAL: None. PAST MEDICAL HISTORY: 1. CHF, EF 20%. 2. COPD. 3. Coronary artery disease with bypass. 4. Diabetes, type 2. 5. Hyperlipidemia. 6. Hypertension. 7. Obstructive sleep apnea. 8. Arthritis. PAST SURGICAL HISTORY: 1. Adenoidectomy. 2. AICD. 3. Back surgery. 4. Cholecystectomy. 5. Pacemaker. 6. Tonsillectomy. 7. Cardiac catheterization. 8. Low back surgery. 9. Permanent pacemaker. PSYCH HISTORY: Anxiety, ADHD. SOCIAL HISTORY: . He has a 17-year-old son at home. He has a cane. He is on disability. Started smoking in 1984 and was smoking a pack a day, now down to half a pack a day. Patient quit heavy drinking 20 years ago. He takes 2 or 4 puffs of marijuana nightly. FAMILY HISTORY: Patient is not in contact with his parents. HOME MEDICATIONS: 1. Aldactone 12.5 p.o. b.i.d. 2. Entresto 24/ one tablet p.o. b.i.d. 3. Prilosec 20 mg p.o. daily. 4. [place]-3 1000 mg p.o. b.i.d. 5. Morphine 30 mg p.o. q.i.d. p.r.n. 6. Lopressor 50 mg b.i.d. 7. DuoNeb t.i.d. 8. Lasix 40 mg b.i.d. 9. Insulin Humalog 25 units subcutaneously t.i.d. 10.Advair 100/50 b.i.d. 11.Flonase 1 spray in each nostril daily. 12.Vitamin D2 50,000 units weekly. 13.Cymbalta 30 mg b.i.d. 14.Lipitor 20 mg p.o. daily. 15.Aspirin 81 mg p.o. daily. 16.ProAir 2 puffs q.6 p.r.n. ALLERGIES: AZITHROMYCIN and GEMFIBROZIL. PHYSICAL EXAMINATION: VITAL SIGNS ON PRESENTATION: Temperature 98.7, pulse 122, respiration 20, blood pressure 102/58, pulse ox 97% on 2 L. GENERAL APPEARANCE: Well built; BMI 33.2. Lying in bed, tired-appearing. EYES: Pupils equal. Conjunctivae normal. HEENT: External appearance of nose and ears normal. Oral cavity normal. NECK: JVD raised. Mass not palpable. RESPIRATORY: Effort increased. LUNGS: Decreased breath sounds. Some wheezing. CARDIOVASCULAR: First and second sounds normal. Edema present. ABDOMEN: Soft, non-tender. Liver and spleen not palpable. LYMPHATIC: No lymph node palpable in neck or axillae. PSYCHIATRY: Alert and oriented x3. Mood and affect normal. NEUROLOGICAL: Pupils equal. Cranial nerves grossly intact. Power and sensation grossly intact. INVESTIGATIONS: White count 16.9, hemoglobin 13.3, potassium 5.4, BUN 27, creatinine 1.13. ProBNP 2530. Chest x-ray film personally reviewed by me. It shows hyperinflation and venous prominence. EKG tracing personally reviewed by me shows some sinus tachycardia. ASSESSMENT: 1. Acute on chronic congestive heart failure exacerbation from systolic dysfunction, ejection fraction 20%, from underlying coronary artery disease. 2. Acute chronic obstructive pulmonary disease exacerbation in a current smoker. 3. Chronic nicotine dependence. Patient is a current smoker. 4. Diabetes mellitus, type 2. 5. Hyperlipidemia. 6. Essential hypertension. 7. Obstructive sleep apnea. 8. Chronic cervical pain from arthritis. 9. Hyperkalemia from patient being on Entresto and Aldactone. PLAN: At this point we will hold off patient's Aldactone. Continue the Entresto. Start the patient on IV Lasix. Increase the DuoNeb to 4 times a day and add inhaled steroids. Other home medications are to be resumed. Also put the patient on fluid restriction. I do not see any clinical evidence of pneumonia. There is no fever, no cough, no sputum production. Will discontinue the antibiotics. Cardiology was consulted. SMOKING CESSATION COUNSELING: The patient was counseled against smoking, explaining the effect on his heart and lungs. More than 3 minutes was spent on this aspect of the case. JESSICA / KIRAN: [id number] /
[2018-05-03] MEDS: FUROSEMIDE 10 MG/ML 4 ML VIAL IV SCH ×2 (18:37→23:38)
[2018-05-03] MEDS: PANTOPRAZOLE 40 MG TABLET PO SCH (18:38)
[2018-05-03] MEDS: NICOTINE 14MG/24HR PATCH TRANSDERM SCH (18:39)
[2018-05-03 20:35] LABS: Glucose,Whole Blood 286 mg/dL (75-99)
[2018-05-03] MEDS: IPRATROPIUM-ALBUTEROL 3 ML NEB INHALATION SCH ×2 (20:37→21:02)
[2018-05-03] MEDS ORDERED: SPIRONOLACTONE 25 MG TAB PO SCH (21:00)
[2018-05-03] MEDS: SYMBICORT 80-4.5 MCG INHALER INHALATION SCH (21:03)
[2018-05-03] MEDS: SACUBITRIL/VALSARTAN 24 MG-26 MG TABLET PO SCH (21:31)
[2018-05-03] MEDS: METOPROLOL TARTRATE 50 MG TAB PO SCH (21:31)
[2018-05-04] MEDS: ALBUTEROL NEBULIZED 2.5 MG/3 ML INHALATION PRN ×2 (00:45→23:12)
[2018-05-04] MEDS ORDERED: diphenhydrAMINE 25 MG CAP PO STA (01:10)
--- NOTE | 2018-05-04 06:27 | XR ---
EXAMINATION TYPE: XR chest 2V DATE OF EXAM: 05/04/2018 HISTORY: pneumonia. REFERENCE: Previous study dated 05/03/2018. FINDINGS: There is a unipolar pacemaker place on the left. The lungs are overinflated. The heart is upper limits of normal in size. There are diffuse increased markings. Pleural spaces are clear. IMPRESSION: 1. COPD. 2. BORDERLINE CARDIOMEGALY.
[2018-05-04] MEDS: SYMBICORT 80-4.5 MCG INHALER INHALATION SCH ×2 (07:24→18:54)
[2018-05-04] MEDS: IPRATROPIUM-ALBUTEROL 3 ML NEB INHALATION SCH ×4 (07:24→18:53)
[2018-05-04 07:28] LABS: Glucose,Whole Blood 343 mg/dL (75-99)
[2018-05-04] MEDS: INSULIN ASPART 100 UNIT/ML 1 ML 10 ML VIAL SQ SCH ×3 (07:59→18:04)
[2018-05-04] MEDS: MORPHINE SULFATE IR 15 MG TABLET PO PRN ×3 (08:02→22:04)
[2018-05-04] MEDS: ASPIRIN 81 MG PO SCH (08:03)
[2018-05-04] MEDS: DULoxetine HCL 30 MG CAPSULE.DR PO SCH ×2 (08:03→20:01)
[2018-05-04] MEDS: PANTOPRAZOLE 40 MG TABLET PO SCH (08:03)
[2018-05-04] MEDS: SACUBITRIL/VALSARTAN 24 MG-26 MG TABLET PO SCH ×2 (08:03→20:01)
[2018-05-04] MEDS: FUROSEMIDE 10 MG/ML 4 ML VIAL IV SCH ×2 (08:03→17:01)
[2018-05-04] MEDS: NICOTINE 14MG/24HR PATCH TRANSDERM SCH (08:03)
[2018-05-04] MEDS: METOPROLOL TARTRATE 50 MG TAB PO SCH ×2 (08:04→22:04)
[2018-05-04] MEDS: ATORVASTATIN 20 MG TAB PO SCH (08:04)
[2018-05-04 08:52] LABS: Anion Gap 9 mmol/L; Blood Urea Nitrogen 18 mg/dL (9-20); Carbon Dioxide 25 mmol/L (22-30); Chloride 102 mmol/L (98-107); Glucose 296 mg/dL (74-99); Potassium 4.3 mmol/L (3.5-5.1); Sodium 136 mmol/L (137-145)
[2018-05-04] MEDS ORDERED: LEVOFLOXACIN 750MG-D5W PMX 750 MG in DEXTROSE/WATER 1 150ML.BAG IVPB SCH (11:00)
[2018-05-04 11:12] LABS: Glucose,Whole Blood 240 mg/dL (75-99)
--- NOTE | 2018-05-04 14:07 | CONS ---
CONSULTATION REFERRING PHYSICIAN: Dr. Johnson. CHIEF COMPLAINT: Leg edema and shortness of breath. Mr. Haynes is a 47-year-old gentleman with history of coronary artery disease, COPD, diabetes, hypertension, dyslipidemia, who presents to hospital complaining of leg edema and worsening shortness of breath. The patient was thought to have had a combination of problems including COPD exacerbation and acute exacerbation of chronic systolic heart failure. The patient received nebulizers and IV Lasix following which his symptoms have improved significantly. At the time of my evaluation, the patient's leg edema has improved. His shortness of breath has improved. The patient has known cardiomyopathy and an echocardiogram done last month showed severe LV systolic dysfunction with an ejection fraction less than 20%. He had a cardiac catheterization in February of 2018 that revealed that did not reveal significant CAD. The patient had an AICD done in the past. On this admission the BNP is elevated suggestive of acute exacerbation of chronic systolic heart failure. PAST MEDICAL HISTORY: Significant for COPD, congestive heart failure, cardiomyopathy, status post AICD. MEDICATIONS: At home include Aldactone 12.5 b.i.d. Entresto, Prilosec, Lopressor 50 b.i.d., DuoNeb, Advair, Flonase, aspirin, Lipitor, Cymbalta. ALLERGIES: Allergic to AZITHROMYCIN AND LOPID. FAMILY HISTORY: Negative for premature coronary artery disease. SOCIAL HISTORY: Significant for smoking. There is no history of EtOH abuse or drug abuse. REVIEW OF SYSTEMS: HEENT is unremarkable. CARDIAC: As described above. RESPIRATORY: As described above. GI: Negative. GENITOURINARY: Negative. ALLERGY/IMMUNOLOGY: Negative. SKIN: Negative. MUSCULOSKELETAL: Negative. ENDOCRINE: Negative. DERM: Negative. CONSTITUTIONAL: Negative. ONCOLOGICAL: Negative. The rest of the system review is not relevant. EXAM: Comfortable at rest. Blood pressure is 81/44, respiratory rate 18, afebrile. There is no jugular venous distention. Chest exam reveals good air entry bilaterally. I do not hear any crackles or rhonchi. Heart exam reveals first and second heart sounds. No gallop. Abdomen is soft. Exam of extremities did not reveal edema. Peripheral pulses are felt. GEAR GENERATOR SET UP OPERATOR exam did not reveal focal neurological deficits. LABS: Show a white cell count of 16, platelet count of 220, hemoglobin is 13.3, potassium is 5.4, creatinine is 1. BNP is 2530. That is an improvement from where he was back in February. ASSESSMENT: 1. Acute exacerbation of chronic systolic heart failure. 2. Chronic obstructive pulmonary disease exacerbation. PLANS: Continue the beta blockers, Entresto, aspirin, Lipitor and IV Lasix. We can switch him to oral Lasix tomorrow and hopefully he can be discharged home over the next 24-48 hours. I will stop the Aldactone given the hyperkalemia. MMODL / IJN: [id number] /
[2018-05-04 14:42] LABS: Glucose,Whole Blood 167 mg/dL (75-99)
[2018-05-04 16:54] LABS: Glucose,Whole Blood 105 mg/dL (75-99)
[2018-05-04 20:33] LABS: Glucose,Whole Blood 184 mg/dL (75-99)
[2018-05-04] MEDS ORDERED: LORazepam 1 MG TAB PO STA (21:26)
--- NOTE | 2018-05-04 22:03 | PN ---
PROGRESS NOTE DATE OF SERVICE: 05/04/2018. PRESENTING COMPLAINT: Short of breath. INTERVAL HISTORY: This patient presented with CHF exacerbation getting IV Lasix. Breathing is better. Edema is going down. Has been up to the hallway. Seen by Cardiology. REVIEW OF SYSTEMS: Done for constitutional, cardiovascular, GI, pulmonary and relevant findings as above. CURRENT MEDICATIONS: Reviewed that include IV Lasix. PHYSICAL EXAMINATION: VITAL SIGNS: Temperature 98.5, pulse 95, respirations 16, blood pressure 81/44. GENERAL APPEARANCE: Sitting up, appears better. EYES: Pupils equal. Conjunctive normal. HEENT: External appearance of nose and ears normal. Oral cavity normal. NECK: JVD less raised. Mass not palpable. RESPIRATORY effort increased. LUNGS: Improved air entry, less wheezing. CARDIOVASCULAR: 1st and 2nd sounds normal. Decreased edema. ABDOMEN: Soft, nontender. Liver and spleen not palpable. PSYCHIATRY: Alert and oriented x3. Mood and affect normal. INVESTIGATIONS: Potassium 4.3, BUN 18, creatinine 0.80. Chest x-ray film personally reviewed by me shows pulmonary edema with some improvement. ASSESSMENT: 1. Acute on chronic congestive heart failure exacerbation from systolic dysfunction, ejection fraction 20% underlying coronary artery disease with clinical response. 2. Acute chronic obstructive pulmonary disease exacerbation in a current smoker. 3. Chronic nicotine dependence. Patient is a current smoker. 4. Diabetes mellitus type 2. 5. Hyperlipidemia. 6. Essential hypertension. 7. Obstructive sleep apnea. 8. Chronic cervical pain from arthritis. 9. Hyperkalemia from patient being on Entresto and Aldactone. PLAN: Patient Aldactone already been held off. Continue with IV Lasix. Hoping patient to be hopefully be discharged by tomorrow. Care was discussed with the patient. MMODL / IJN: [id number] /
[2018-05-05] MEDS: FUROSEMIDE 10 MG/ML 4 ML VIAL IV SCH ×4 (00:01→21:16)
[2018-05-05] MEDS: MORPHINE SULFATE IR 15 MG TABLET PO PRN ×3 (05:06→17:44)
[2018-05-05 07:06] LABS: Glucose,Whole Blood 307 mg/dL (75-99)
[2018-05-05] MEDS: IPRATROPIUM-ALBUTEROL 3 ML NEB INHALATION SCH ×4 (08:12→19:26)
[2018-05-05] MEDS: SYMBICORT 80-4.5 MCG INHALER INHALATION SCH ×2 (08:12→19:25)
[2018-05-05] MEDS: INSULIN ASPART 100 UNIT/ML 1 ML 10 ML VIAL SQ SCH ×4 (08:18→21:15)
[2018-05-05] MEDS: NICOTINE 14MG/24HR PATCH TRANSDERM SCH (08:24)
[2018-05-05] MEDS: SACUBITRIL/VALSARTAN 24 MG-26 MG TABLET PO SCH ×2 (08:25→21:12)
[2018-05-05] MEDS: PANTOPRAZOLE 40 MG TABLET PO SCH (08:25)
[2018-05-05] MEDS: ATORVASTATIN 20 MG TAB PO SCH (08:25)
[2018-05-05] MEDS: ASPIRIN 81 MG PO SCH (08:25)
[2018-05-05] MEDS: DULoxetine HCL 30 MG CAPSULE.DR PO SCH ×2 (08:25→21:16)
[2018-05-05] MEDS: METOPROLOL TARTRATE 50 MG TAB PO SCH ×2 (08:25→21:12)
[2018-05-05] MEDS: DIGOXIN 125 MCG TAB PO SCH (10:18)
--- NOTE | 2018-05-05 10:51 | P.PN ---
Subjective Mr Dallas is seen and examined sitting up at the edge of the bed. Past medical history significant for chronic systolic heart failure, non-ischemic cardiomyopathy, s/p AICD placement, diabetes mellitus, hypertension, dyslipidemia, COPD, anxiety and chronic nicotine dependence. He follows with Dr. Padilla in the office. He presented to the hospital with progressive exertional shortness of breath. NTproBNP on admission 2530. He has been maintained on lasix 40 mg TID. Laboratory data pending for today. Blood pressures have been running low 80-90 systolic. He states his breathing is improving but he still feels short of breath when he gets up to the bathroom or walking in the halls. He also complains of productive cough with yellow sputum. He denies chest pain, dizziness or palpitations. Objective - Vital Signs Vital signs: Vital Signs Temp 98.3 F 05/05/18 05:00 Pulse 80 05/05/18 08:23 Resp 15 05/05/18 05:00 BP 101/66 05/05/18 08:22 Pulse Ox 94 L 05/05/18 05:00 Intake & Output 05/04/18 05/05/18 05/05/18 18:59 06:59 18:59 Intake Total 320 Balance 320 Weight 107 kg Intake: Oral 320 Other: Voiding Method Toilet Toilet # Voids 2 1 - Exam GENERAL: Well-appearing, well-nourished and in no acute distress. NECK: Supple without JVD or thyromegaly. LUNGS: Breath sounds clear to auscultation bilaterally. Respiration equal and unlabored. No wheezes, rales or rhonchi. HEART: Regular rate and rhythm without murmurs, rubs or gallops. S1 and S2 heard. EXTREMITIES: Normal range of motion, 1+ bilateral lower extremity pitting edema. No clubbing or cyanosis. Peripheral pulses intact. - Labs CBC & Chem 7: 05/03/18 10:04 05/04/18 07:44 Labs: Abnormal Lab Results - Last 24 Hours (Table) 05/04/18 05/04/18 05/04/18 Range/Units 11:09 14:41 16:52 POC Glucose (mg/dL) 240 H 167 H 105 H (75-99) mg/dL 05/04/18 05/05/18 Range/Units 20:32 07:05 POC Glucose (mg/dL) 184 H 307 H (75-99) mg/dL Microbiology - Last 24 Hours (Table) 05/04/18 12:00 Gram Stain - Preliminary Sputum Sputum Culture - Preliminary 05/03/18 10:04 Blood Culture - Preliminary Blood No Growth after 24 hours Assessment and Plan Assessment: ASSESSMENT Acute on chronic systolic heart failure, EF 20-25% Exacerbation COPD Hyperkalemia on admission 5.4. Aldactone stopped. Repeat K 4.3 Leukocytosis Non-ischemic cardiomyopathy, recent normal heart cath Hypertension Dyslipidemia s/p AICD implantation PLAN Continue IV lasix 40 mg TID. Add small dose of digoxin 0.125 mg daily. Aldactone was discontinued yesterday for hyperkalemia. Obtain daily weights and document intake and output. Suspect we can transition to PO diuretics tomorrow. We will continue to follow. Nurse Practitioner note has been reviewed, I agree with a documented findings and plan of care. Patient was seen and examined.
[2018-05-05 11:01] LABS: Anion Gap 12 mmol/L; Blood Urea Nitrogen 16 mg/dL (9-20); Carbon Dioxide 23 mmol/L (22-30); Chloride 102 mmol/L (98-107); Glucose 290 mg/dL (74-99); Potassium 4.3 mmol/L (3.5-5.1); Sodium 137 mmol/L (137-145)
[2018-05-05 11:43] LABS: Glucose,Whole Blood 174 mg/dL (75-99)
[2018-05-05 16:46] LABS: Glucose,Whole Blood 83 mg/dL (75-99)
[2018-05-05 17:37] LABS: Glucose,Whole Blood 124 mg/dL (75-99)
[2018-05-05] MEDS ORDERED: FUROSEMIDE 10 MG/ML 10 ML VIAL IV SCH (20:00)
--- NOTE | 2018-05-05 21:02 | PN ---
PROGRESS NOTE DATE OF SERVICE: 05/05/2018 PRESENTING COMPLAINT: Short of breath. INTERVAL HISTORY: This patient presented with CHF exacerbation, on IV Lasix. Breathing continues to improve. Edema is going down. He has been up to the bathroom and the hallway. No orthopnea. Seen by Cardiology. REVIEW OF SYSTEMS: Done for constitutional, cardiovascular, GI, pulmonary; relevant findings as above. CURRENT MEDICATIONS: Reviewed. They include IV Lasix 40 mg q.8. PHYSICAL EXAMINATION: Temperature 98.8, pulse 101, respiration 22, blood pressure 96/63, pulse ox 99% on room air. GENERAL APPEARANCE: Sitting up. Less tired. EYES: Pupils equal. Conjunctivae normal. HEENT: External appearance of nose and ears normal. Oral cavity normal. NECK: JVD not raised. Mass not palpable. RESPIRATORY: Effort normal. LUNGS: Improved air entry. CARDIOVASCULAR: First and second sounds normal. Decreased edema. ABDOMEN: Soft, non-tender. Liver and spleen not palpable. PSYCHIATRY: Alert and oriented x3. Mood and affect normal. INVESTIGATIONS: Potassium 4.3. BUN and creatinine are normal. ProBNP 1690. ASSESSMENT: 1. Acute on chronic congestive heart failure exacerbation from systolic dysfunction, ejection fraction 20%, from underlying coronary artery disease, improving. 2. Acute chronic obstructive pulmonary disease exacerbation in a current smoker. 3. Chronic nicotine dependence. Patient is a current smoker. 4. Diabetes mellitus, type 2. 5. Hyperlipidemia. 6. Essential hypertension. 7. Obstructive sleep apnea. 8. Chronic cervical pain from arthritis. 9. Hyperkalemia from patient being on Entresto and Aldactone, improved. PLAN: Continue current medication and treatment plan. Keep the patient on IV Lasix for another 24 hours. Care was discussed with the patient. MMODL / IJN: [id number] /
[2018-05-05 21:13] LABS: Glucose,Whole Blood 321 mg/dL (75-99)
[2018-05-05] MEDS ORDERED: LORazepam 1 MG TAB PO PRN (22:35)
[2018-05-06] MEDS: FUROSEMIDE 10 MG/ML 4 ML VIAL IV SCH (03:52)
[2018-05-06 06:57] LABS: Glucose,Whole Blood 273 mg/dL (75-99)
[2018-05-06] MEDS: ATORVASTATIN 20 MG TAB PO SCH (07:44)
[2018-05-06] MEDS: ASPIRIN 81 MG PO SCH (07:44)
[2018-05-06] MEDS: NICOTINE 14MG/24HR PATCH TRANSDERM SCH (07:44)
[2018-05-06] MEDS: PANTOPRAZOLE 40 MG TABLET PO SCH (07:44)
[2018-05-06] MEDS: DULoxetine HCL 30 MG CAPSULE.DR PO SCH (07:45)
[2018-05-06] MEDS: DIGOXIN 125 MCG TAB PO SCH (07:45)
[2018-05-06] MEDS: SACUBITRIL/VALSARTAN 24 MG-26 MG TABLET PO SCH (07:45)
[2018-05-06] MEDS: INSULIN ASPART 100 UNIT/ML 1 ML 10 ML VIAL SQ SCH ×2 (07:45→12:49)
[2018-05-06] MEDS: METOPROLOL TARTRATE 50 MG TAB PO SCH (07:45)
[2018-05-06] MEDS: MORPHINE SULFATE IR 15 MG TABLET PO PRN ×2 (07:51→14:41)
[2018-05-06] MEDS: SYMBICORT 80-4.5 MCG INHALER INHALATION SCH (08:24)
[2018-05-06] MEDS: IPRATROPIUM-ALBUTEROL 3 ML NEB INHALATION SCH ×3 (08:24→15:35)
[2018-05-06] MEDS ORDERED: SPIRONOLACTONE 25 MG TAB PO SCH ×2 (09:00)
[2018-05-06 10:18] LABS: Anion Gap 11 mmol/L; Blood Urea Nitrogen 18 mg/dL (9-20); Carbon Dioxide 26 mmol/L (22-30); Chloride 100 mmol/L (98-107); Glucose 259 mg/dL (74-99); Magnesium 1.8 mg/dL (1.6-2.3); Sodium 137 mmol/L (137-145)
--- NOTE | 2018-05-06 10:58 | P.PN ---
Subjective Mr Dallas is seen and examined sitting up at the edge of the bed. Past medical history significant for chronic systolic heart failure, non-ischemic cardiomyopathy, s/p AICD placement, diabetes mellitus, hypertension, dyslipidemia, COPD, anxiety and chronic nicotine dependence. He follows with Dr. Padilla in the office. He presented to the hospital with progressive exertional shortness of breath. NTproBNP on admission 2530. He has been maintained on lasix 40 mg TID. Laboratory data reviewed, sodium 137, potassium 4.0, creatinine 0.76 and magnesium 1.8. Blood pressure 99/57 heart rate 78. He states he is feeling much better overall today denies any shortness of breath , chest pain, dizziness or palpitations. Lower extremity edema is improving. Plan: Transition to oral diuretics in the form of Lasix 60 mg twice a day. Resume Aldactone at lower dose 12.5 mg daily. Increase metoprolol 75 mg twice a day. Continue aspirin, atorvastatin, digoxin and Entresto. Follow-up with Dr. Padilla in 2 weeks. Objective - Vital Signs Vital signs: Vital Signs Temp 98.3 F 05/06/18 05:00 Pulse 78 05/06/18 08:33 Resp 16 05/06/18 05:00 BP 99/57 05/06/18 05:00 Pulse Ox 93 L 05/06/18 05:00 Intake & Output 05/05/18 05/06/18 05/06/18 18:59 06:59 18:59 Weight 107 kg 105 kg Other: Voiding Method Toilet - Exam GENERAL: Well-appearing, well-nourished and in no acute distress. NECK: Supple without JVD or thyromegaly. LUNGS: Breath sounds clear to auscultation bilaterally. Respiration equal and unlabored. No wheezes, rales or rhonchi. HEART: Regular rate and rhythm without murmurs, rubs or gallops. S1 and S2 heard. EXTREMITIES: Normal range of motion, trace bilateral lower extremity pitting edema. No clubbing or cyanosis. Peripheral pulses intact. - Labs CBC & Chem 7: 05/03/18 10:04 05/06/18 09:37 Labs: Abnormal Lab Results - Last 24 Hours (Table) 05/05/18 05/05/18 05/05/18 Range/Units :18 11:42 17:36 Glucose 290 H (74-99) mg/dL POC Glucose (mg/dL) 174 H 124 H (75-99) mg/dL 05/05/18 05/06/18 05/06/18 Range/Units 21:10 06:55 09:37 Glucose 259 H (74-99) mg/dL POC Glucose (mg/dL) 321 H 273 H (75-99) mg/dL Microbiology - Last 24 Hours (Table) 05/03/18 10:04 Blood Culture - Preliminary Blood No Growth after 48 hours Assessment and Plan Assessment: ASSESSMENT Acute on chronic systolic heart failure, EF 20-25% Exacerbation COPD Hyperkalemia, resolved Leukocytosis Non-ischemic cardiomyopathy, recent normal heart cath Hypertension Dyslipidemia s/p AICD implantation PLAN Transition to oral diuretics in the form of Lasix 60 mg twice a day. Resume Aldactone at lower dose 12.5 mg daily. Increase metoprolol 75 mg twice a day. Continue aspirin, atorvastatin, digoxin and Entresto. Follow-up with Dr. Padilla in 2 weeks. Nurse Practitioner note has been reviewed, I agree with a documented findings and plan of care. Patient was seen and examined.
[2018-05-06 11:22] LABS: Glucose,Whole Blood 194 mg/dL (75-99)
[2018-05-06] MEDS: FUROSEMIDE 20 MG TAB PO SCH ×2 (12:48→17:02)
[2018-05-06 14:19] VITALS: BP 99/65; RESP 22; TEMP 98.5
[2018-05-06 15:50] VITALS: PULSE 80
[2018-05-06] MEDS ORDERED: METOPROLOL TARTRATE 25 MG TAB PO SCH (21:00)
--- NOTE | 2018-05-07 09:52 | DS ---
DISCHARGE SUMMARY DATE OF ADMISSION: 05/03/2018 DATE OF DISCHARGE: 05/06/2018 FINAL DIAGNOSES: 1. Acute on chronic congestive heart failure exacerbation from systolic dysfunction, ejection fraction 20% from underlying coronary artery disease. 2. Acute chronic obstructive pulmonary disease exacerbation in a current smoker. 3. Chronic nicotine dependence. Patient is a cigarette smoker. 4. Diabetes mellitus type 2. 5. Hyperlipidemia. 6. Essential hypertension. 7. Obstructive sleep apnea. 8. Chronic cervical pain from arthritis. 9. Hyperkalemia from patient being on Entresto and Aldactone. CONSULTATION: Dr. Mili Abbasi from Cardiology. HOSPITAL COURSE: This patient presented with CHF exacerbation responded well to IV Lasix; also had COPD exacerbation given bronchodilators. Patient advised against smoking. Doing much better today. Up and about. On examination, temperature 98.5, pulse 82, blood pressure 99/65, pulse ox 95% on room air. LABS: BUN and creatinine normal. The patient advised against smoking. DISCHARGE MEDICATIONS: 1. Aspirin 81 mg a day. 2. Cymbalta 30 mg b.i.d. 3. Vitamin D2, 50,000 units p.o. weekly. 4. Advair 1 puff b.i.d., 100/50. 5. Morphine sulfate 30 mg p.o. q.i.d. p.r.n. 6. [place]-3, 1000 mg b.i.d. 7. Prilosec 20 mg p.o. daily. 8. Lipitor 20 mg p.o. daily. 9. ProAir 2 puffs q.6 p.r.n. 10.Humalog 25 units subcutaneously t.i.d. with meals. 11.DuoNeb t.i.d. 12.Entresto one tablet p.o. b.i.d. 13.Digoxin 125 mcg p.o. daily. 14.Lasix 60 mg p.o. b.i.d. 15.Lopressor 75 mg p.o. b.i.d. 16.Nicotine patch 14. 17.Aldactone 12.5 mg p.o. daily. Follow up with Dr. Hunter Romano in 1 week. Follow up with Dr. Keara Padilla on 05/22/2018. BMP in 1 week. Discussion and discharge planning more than 35 minutes. MMODL / IJN: [id number] /
== END 2018-05-06 17:20 | disposition home or self-care (01) | DRG 292 ==
LOC: EC 09:37 → 5MS5E 11:24 → OBSVTOIN 05-06 12:26
PROVIDERS: ADMIT Hospitalist; ATTEND Hospitalist
DX: I11.0 Hypertensive heart disease with heart failure (principal); J44.1 Chronic obstructive pulmonary disease with (acute) exacerbation; I50.23 Acute on chronic systolic (congestive) heart failure; E87.5 Hyperkalemia; I25.5 Ischemic cardiomyopathy; I25.10 Atherosclerotic heart disease of native coronary artery without angina pectoris; E78.5 Hyperlipidemia, unspecified; G47.33 Obstructive sleep apnea (adult) (pediatric); E11.9 Type 2 diabetes mellitus without complications; K21.9 Gastro-esophageal reflux disease without esophagitis; M19.91 Primary osteoarthritis, unspecified site; I25.2 Old myocardial infarction; F41.9 Anxiety disorder, unspecified; F90.9 Attention-deficit hyperactivity disorder, unspecified type; G89.29 Other chronic pain; M54.9 Dorsalgia, unspecified; M54.2 Cervicalgia; F17.210 Nicotine dependence, cigarettes, uncomplicated; Z71.6 Tobacco abuse counseling; Z79.82 Long term (current) use of aspirin; Z79.4 Long term (current) use of insulin; Z79.51 Long term (current) use of inhaled steroids; Z79.899 Other long term (current) drug therapy; Z90.49 Acquired absence of other specified parts of digestive tract; Z87.01 Personal history of pneumonia (recurrent); Z99.89 Dependence on other enabling machines and devices; Z98.1 Arthrodesis status; Z95.810 Presence of automatic (implantable) cardiac defibrillator; Z88.1 Allergy status to other antibiotic agents; Z88.8 Allergy status to other drugs, medicaments and biological substances; Z81.1 Family history of alcohol abuse and dependence; Z83.79 Family history of other diseases of the digestive system; Z86.79 Personal history of other diseases of the circulatory system
CPT/HCPCS: 36415; 71046; 80048; 80053; 82550; 82553; 83605; 83735; 83880; 84484; 85025; 85610; 85730; 87040; 87070; 87205; 93005; 94640; 94760; 96374; 99285

== ENCOUNTER 2019-02-05 19:33 | Emergency (ER) | payer MEDICARE ==
[2019-02-05 20:05] VITALS: BP 110/76; PULSE 108; RESP 18; TEMP 99.4
--- NOTE | 2019-02-05 20:46 | ED ---
Extremity Problem HPI - General Chief complaint: Extremity Problem,Nontraumatic Stated complaint: Diabetic, wounds on feet Time Seen by Provider: 02/05/19 20:14 Source: patient Mode of arrival: wheelchair Limitations: no limitations - History of Present Illness Initial comments: Patient is a 48-year-old diabetic male presents emergency Department with a diabetic ulcer. Patient reports chronic ulcer at the fifth MTP joint of the right foot. Patient reports seeing a echometer engineer for wound management. Patient reports he missed his last appointment on Saturday of this week due to lack of transportation. Patient reports prior coming to the emergency department he was placed on Keflex. Patient reports that he is unable to perform proper wound care dressings due to his lack of vision. Patient reports over the last few days the foot developed a small. Patient also reports yellow discharge. Patient also reports numbness in bilateral feet due to diabetic neuropathy. - Related Data Home Medications Medication Instructions Recorded Confirmed Aspirin 81 mg PO DAILY 10/21/15 02/05/19 Fluticasone/Salmeterol [Advair 1 puff INHALATION RT-BID 03/28/18 02/05/19 100-50 Diskus] Omeprazole [PriLOSEC] 20 mg PO DAILY 03/28/18 02/05/19 Sacubitril/Valsartan [Entresto 24 1 tab PO BID 05/03/18 02/05/19 mg-26 mg Tablet] Atorvastatin [Lipitor] 80 mg PO HS 02/05/19 02/05/19 Furosemide [Lasix] 60 mg PO BID 02/05/19 02/05/19 INSULIN LISPRO (HumaLOG) [humaLOG] See Protocol SQ AC-TID 02/05/19 02/05/19 Ipratropium-Albuterol Nebulize 3 ml INHALATION RT-TID PRN 02/05/19 02/05/19 [Duoneb 0.5 mg-3 mg/3 ml Soln] Metoprolol Succinate [Toprol XL] 50 mg PO DAILY 02/05/19 02/05/19 Morphine Sulfate Ir [MSIR] 30 mg PO QID PRN 02/05/19 02/05/19 [place]-3 Acid Ethyl Esters [Lovaza] 1 gm PO BID 02/05/19 02/05/19 Potassium Chloride ER [K-Dur 10] 10 meq PO BID 02/05/19 02/05/19 Previous Rx's Medication Instructions Recorded Albuterol Sulfate [Proair Hfa] 2 puff INHALATION RT-Q6H PRN #1 04/06/18 hfa.[email or web address] Nicotine 14Mg/24Hr Patch [Habitrol] 1 patch TRANSDERM DAILY #30 patch 05/06/18 Allergies Allergy/AdvReac Type Severity Reaction Status Date / Time azithromycin Allergy Anaphylaxis Verified 02/05/19 21:27 gemfibrozil [From Lopid] Allergy Rash/Hives Verified 02/05/19 21:27 Review of Systems ROS Statement: Those systems with pertinent positive or pertinent negative responses have been documented in the HPI. ROS Other: All systems not noted in ROS Statement are negative. Past Medical History Past Medical History: Asthma, Coronary Artery Disease (CAD), Chest Pain / Angina, Heart Failure, COPD, Diabetes Mellitus, GERD/Reflux, Hyperlipidemia, Hypertension, Myocardial Infarction ([place]), Pneumonia, Sleep Apnea/CPAP/BIPAP, Supraventricular Tachycardia (SVT) Additional Past Medical History / Comment(s): Ischemic cardiomyopathy, chronic CHF, SVT, IDDM type II, KAMINI with CPAP occasionally used, chronic cervical/back pain-pt states he is no longer taking his morphine for pain, DJD Last Myocardial Infarction Date:: 12/11/17 History of Any Multi-Drug Resistant Organisms: None Reported Past Surgical History: Adenoidectomy, AICD, Back Surgery, Cholecystectomy, EPS, Heart Catheterization, Pacemaker, Tonsillectomy Additional Past Surgical History / Comment(s): 12/10/17 cardiac cath, previous cardiac cath, 09/02/14 AICD/pacer, EGD/colonoscopy, low back surgery with fusion. Past Anesthesia/Blood Transfusion Reactions: Motion Sickness Additional Past Anesthesia/Blood Transfusion Reaction / Comment(s): Pt states he received blood with back surgery without reaction. Type of Cardiac Device: Permanent Pacemaker, AICD Device Placement Date:: 09-02-14 Past Psychological History: ADD/ADHD, Anxiety Smoking Status: Current every day smoker Past Alcohol Use History: Heavy Past Drug Use History: None Reported - Past Family History Father Additional Family Medical History / Comment(s): Pt has not kept in close contact with his father for many yrs. Father was an alcoholic and pt believes he has from cirrhosis of the liver. Mother History Unknown: Yes Additional Family Medical History / Comment(s): Pt is not in contact with his mother or his father who he has heard had . General Exam Limitations: no limitations General appearance: alert, in no apparent distress Head exam: Present: atraumatic, normocephalic, normal inspection Eye exam: Present: normal appearance, PERRL, EOMI Pupils: Present: normal accommodation ENT exam: Present: normal exam, mucous membranes moist, normal external ear exam Neck exam: Present: normal inspection, full ROM Respiratory exam: Present: normal lung sounds bilaterally Cardiovascular Exam: Present: regular rate, normal rhythm, normal heart sounds Extremities exam: Present: full ROM, normal capillary refill. Absent: normal inspection (Chronic diabetic ulcer on the fifth MTP joint of the right foot. No discharge noted. Approximately 1 cm diameter. ) Back exam: Present: normal inspection, full ROM Neurological exam: Present: alert, oriented X3 Psychiatric exam: Present: normal affect, normal mood Skin exam: Present: warm, intact, normal color Course Vital Signs 02/05/19 20:01 Temperature 99.4 F Pulse Rate 108 H Respiratory 18 Rate Blood Pressure 110/76 O2 Sat by Pulse 99 Oximetry Medical Decision Making - Medical Decision Making Patient is a 48-year-old male presents emergency Department with a diabetic ulcer. X-ray of the foot is negative for ostial myelitis. Based on physical examination the ulcer does not appear to be infected so no antibiotics are necessary. Wound dressing was performed. Further management can be done with outpatient podiatry. Transportation is to biggest jesus for the patient to continue seeing his echometer engineer. Patient was advised to call the [employer] which provides transportation services for people who cannot go to the appointments. Patient states that he satisfied it is very to go home. Strict return parameters were thoroughly discussed with patient was understanding and agreeable. Case discussed with physician. Disposition Clinical Impression: Diabetic ulcer of foot associated with diabetes mellitus due to underlying condition, limited to breakdown of skin Disposition: HOME SELF-CARE Condition: Stable Instructions (If sedation given, give patient instructions): Diabetic Foot Ulcers (ED) Additional Instructions: Please follow-up with podiatry. Please contact the [employer] counselor of [employer] for transportation needs. Please return to emergency department if symptoms worsen. Is patient prescribed a controlled substance at d/c from ED?: No Referrals: Hunter Romano MD [Primary Care Provider] - 1-2 days Time of Disposition: 21:55
--- NOTE | 2019-02-05 21:16 | XR ---
EXAMINATION TYPE: XR foot limited RT DATE OF EXAM: 02/05/2019 COMPARISON: NONE HISTORY: Diabetes. Wounds TECHNIQUE: 2 views FINDINGS: There is small plantar calcaneal spur. I see no fracture nor dislocation. There is no evide nce of focal bone destruction. There is lucency over the plantar aspect of the forefoot consistent wi th ulceration. IMPRESSION: Ulcer crater on the plantar aspect of the forefoot. No evidence of osteomyelitis.
== END 2019-02-05 22:05 | disposition home or self-care (01) ==
LOC: EC 19:33
DX: E08.621 Diabetes mellitus due to underlying condition with foot ulcer (principal); J45.909 Unspecified asthma, uncomplicated; I25.119 Atherosclerotic heart disease of native coronary artery with unspecified angina pectoris; E78.5 Hyperlipidemia, unspecified; I11.0 Hypertensive heart disease with heart failure; I50.9 Heart failure, unspecified; I25.2 Old myocardial infarction; G47.33 Obstructive sleep apnea (adult) (pediatric); F17.200 Nicotine dependence, unspecified, uncomplicated; Z79.82 Long term (current) use of aspirin; Z79.4 Long term (current) use of insulin; Z79.51 Long term (current) use of inhaled steroids; Z79.899 Other long term (current) drug therapy; Z88.1 Allergy status to other antibiotic agents; Z88.8 Allergy status to other drugs, medicaments and biological substances; Z95.0 Presence of cardiac pacemaker; Z95.5 Presence of coronary angioplasty implant and graft
CPT/HCPCS: 99283

== ENCOUNTER → 2019-03-25 | Outpatient (CLI) | payer MEDICARE, OTHER ==
[2019-03-25 12:49] LABS: Basophils # (A) 0.1 k/uL (0-0.2); Basophils % (A) 1 %; Eosinophils # (A) 0.5 k/uL (0-0.7); Eosinophils % (A) 4 %; HCT 46.6 % (39.0-53.0); HGB 15.1 gm/dL (13.0-17.5); Lymphocytes # (A) 2.6 k/uL (1.0-4.8); Lymphocytes % (A) 20 %; MCH 29.4 pg (25.0-35.0); MCHC 32.4 g/dL (31.0-37.0); MCV 90.7 fL (80.0-100.0); Mean Platelet Volume 7.9; Monocytes # (A) 0.7 k/uL (0-1.0); Monocytes % (A) 6 %; Neutrophils # (A) 8.8 k/uL (1.3-7.7); Neutrophils % (A) 69 %; Platelet Count 227 k/uL (150-450); RBC 5.13 m/uL (4.30-5.90); RDW 12.5 % (11.5-15.5); WBC 12.8 k/uL (3.8-10.6)
[2019-03-25 18:40] LABS: African American GFR (CKD) 67.9 (60.0-200.0); Albumin 4.2 g/dL (3.80-4.90); Anion Gap 5.2 mmol/L (4.00-12.00); BUN/Creat Ratio 20.71 Ratio (12.00-20.00); Calcium 9.2 mg/dL (8.7-10.3); Carbon Dioxide 28.8 mmol/L (21.6-31.8); Globulin 2.1 g/dL (1.6-3.3); Potassium 4.9 mmol/L (3.5-5.5); Total Bilirubin 0.3 mg/dL (0.2-1.2); Total Protein 6.3 g/dL (6.2-8.2)
== END | disposition home or self-care (01) ==
LOC: LABWHC1 12:15
PROVIDERS: ATTEND Thoracic Surgery (Cardiothoracic Vascular Surgery)
DX: E11.621 Type 2 diabetes mellitus with foot ulcer (principal); L97.522 Non-pressure chronic ulcer of other part of left foot with fat layer exposed; L97.512 Non-pressure chronic ulcer of other part of right foot with fat layer exposed; F17.210 Nicotine dependence, cigarettes, uncomplicated
CPT/HCPCS: 36415; 80053; 84134; 85025

== ENCOUNTER → 2019-03-31 | Outpatient (CLI) | payer MEDICARE, OTHER ==
--- NOTE | 2019-04-01 10:02 | P.ARTDOP ---
Arterial Doppler LOWER EXTREMITY ARTERIAL DOPPLER: DATE OF SERVICE: 03/31/2019 Reason for study: Bilateral foot ulcers. Doppler waveforms: Multiphasic bilaterally throughout. Pulse volume recording: Normal pattern. Pressure gradients: None. Ankle-brachial indices: Greater than 1 bilaterally. Toe pressures: 81 on the right, 90 on the left Impression: Normal study. There is some elevation of ankle pressures suspicious for nonhemodynamically significant calcific wall disease..
== END ==
LOC: RADUSWWP 10:34
PROVIDERS: ATTEND Thoracic Surgery (Cardiothoracic Vascular Surgery)
DX: L97.522 Non-pressure chronic ulcer of other part of left foot with fat layer exposed (principal); L97.512 Non-pressure chronic ulcer of other part of right foot with fat layer exposed; E11.621 Type 2 diabetes mellitus with foot ulcer; F17.210 Nicotine dependence, cigarettes, uncomplicated
CPT/HCPCS: 93923

== ENCOUNTER 2019-04-12 14:41 | Inpatient (IN) | payer MEDICARE, OTHER ==
[2019-04-12] MEDS ORDERED: oxyCODONE-APAP 5-325MG 1 EACH TAB PO STA (15:21)
[2019-04-12] MEDS ORDERED: PIPERACILLIN-TAZOBACTAM 3.375 GM in SODIUM CHLORIDE 0.9% 100 ML IVPB STA (15:21)
[2019-04-12] MEDS ORDERED: SODIUM CHLORIDE 0.9% 1,000 ML IV ONE (15:22)
[2019-04-12 15:36] LABS: Basophils # (A) 0.1 k/uL (0-0.2); Basophils % (A) 1 %; Eosinophils # (A) 0.3 k/uL (0-0.7); Eosinophils % (A) 3 %; HCT 42.2 % (39.0-53.0); HGB 14.4 gm/dL (13.0-17.5); Lymphocytes # (A) 2.1 k/uL (1.0-4.8); Lymphocytes % (A) 21 %; MCH 29.4 pg (25.0-35.0); MCHC 34.1 g/dL (31.0-37.0); MCV 86.1 fL (80.0-100.0); Mean Platelet Volume 8.1; Monocytes # (A) 0.6 k/uL (0-1.0); Monocytes % (A) 6 %; Neutrophils # (A) 6.9 k/uL (1.3-7.7); Neutrophils % (A) 68 %; Platelet Count 259 k/uL (150-450); RBC 4.91 m/uL (4.30-5.90); RDW 12.1 % (11.5-15.5); WBC 10.2 k/uL (3.8-10.6)
[2019-04-12 15:51] LABS: ALT 27 U/L (21-72); AST 26 U/L (17-59); African American GFR (CKD) >90 (>60 ml/min/1.73 sqM); Albumin 3.6 g/dL (3.5-5.0); Alkaline Phosphatase 105 U/L (38-126); Anion Gap 10 mmol/L; Blood Urea Nitrogen 16 mg/dL (9-20); Calcium 8.9 mg/dL (8.4-10.2); Carbon Dioxide 26 mmol/L (22-30); Chloride 100 mmol/L (98-107); Glucose 308 mg/dL (74-99); Potassium 4.7 mmol/L (3.5-5.1); Sodium 136 mmol/L (137-145); Total Bilirubin 0.4 mg/dL (0.2-1.3); Total Protein 6.8 g/dL (6.3-8.2)
--- NOTE | 2019-04-12 15:56 | ED ---
Recheck HPI - General Chief Complaint: Recheck/Abnormal Lab/Rx Stated Complaint: infected diabetic wound Time Seen by Provider: 04/12/19 14:55 Source: patient, RN notes reviewed, old records reviewed Mode of arrival: wheelchair Limitations: no limitations - History of Present Illness Initial Comments: 48-year-old male presents emergency department today for evaluation today with the chief complaint of chin right foot. Patient has a diabetic wound on his left foot the SANE treatment by the wound care clinic. He states she's been having this worked with Dr. Mora. Patient states that last Saturday when they changed his left foot dressing and change his right foot dressing his wound is very well. Patient states that since that time his had increased redness swelling and irritation going up the foot and foul odor. He reports he's had some fevers and chills and generally feeling fatigued. Patient states that he is not on antibiotics at this time but did take some penicillin that he had at home. - Related Data Home Medications Medication Instructions Recorded Confirmed Aspirin 81 mg PO DAILY 10/21/15 02/05/19 Fluticasone/Salmeterol [Advair 1 puff INHALATION RT-BID 03/28/18 02/05/19 100-50 Diskus] Omeprazole [PriLOSEC] 20 mg PO DAILY 03/28/18 02/05/19 Sacubitril/Valsartan [Entresto 24 1 tab PO BID 05/03/18 02/05/19 mg-26 mg Tablet] Atorvastatin [Lipitor] 80 mg PO HS 02/05/19 02/05/19 Furosemide [Lasix] 60 mg PO BID 02/05/19 02/05/19 INSULIN LISPRO (HumaLOG) [humaLOG] See Protocol SQ AC-TID 02/05/19 02/05/19 Ipratropium-Albuterol Nebulize 3 ml INHALATION RT-TID PRN 02/05/19 02/05/19 [Duoneb 0.5 mg-3 mg/3 ml Soln] Metoprolol Succinate [Toprol XL] 50 mg PO DAILY 02/05/19 02/05/19 Morphine Sulfate Ir [MSIR] 30 mg PO QID PRN 02/05/19 02/05/19 [place]-3 Acid Ethyl Esters [Lovaza] 1 gm PO BID 02/05/19 02/05/19 Potassium Chloride ER [K-Dur 10] 10 meq PO BID 02/05/19 02/05/19 Previous Rx's Medication Instructions Recorded Albuterol Sulfate [Proair Hfa] 2 puff INHALATION RT-Q6H PRN #1 04/06/18 [email or web address] Nicotine 14Mg/24Hr Patch [Habitrol] 1 patch TRANSDERM DAILY #30 patch 05/06/18 Allergies Allergy/AdvReac Type Severity Reaction Status Date / Time azithromycin Allergy Anaphylaxis Verified 04/12/19 14:59 gemfibrozil [From Lopid] Allergy Rash/Hives Verified 04/12/19 14:59 Review of Systems ROS Statement: Those systems with pertinent positive or pertinent negative responses have been documented in the HPI. ROS Other: All systems not noted in ROS Statement are negative. Past Medical History Past Medical History: Asthma, Coronary Artery Disease (CAD), Chest Pain / Angina, Heart Failure, COPD, Diabetes Mellitus, GERD/Reflux, Hyperlipidemia, Hypertension, Myocardial Infarction ([place]), Pneumonia, Sleep Apnea/CPAP/BIPAP, Supraventricular Tachycardia (SVT) Additional Past Medical History / Comment(s): Ischemic cardiomyopathy, chronic CHF, SVT, IDDM type II, KAMINI with CPAP occasionally used, chronic cervical/back pain-pt states he is no longer taking his morphine for pain, DJD, diabetic foot wounds x3 months. Last Myocardial Infarction Date:: 12/11/17 History of Any Multi-Drug Resistant Organisms: None Reported Past Surgical History: Adenoidectomy, AICD, Back Surgery, Cholecystectomy, EPS, Heart Catheterization, Pacemaker, Tonsillectomy Additional Past Surgical History / Comment(s): 12/10/17 cardiac cath, previous cardiac cath, 09/02/14 AICD/pacer, EGD/colonoscopy, low back surgery with fusion. Past Anesthesia/Blood Transfusion Reactions: Motion Sickness Additional Past Anesthesia/Blood Transfusion Reaction / Comment(s): Pt states he received blood with back surgery without reaction. Type of Cardiac Device: Permanent Pacemaker, AICD Device Placement Date:: 09-02-14 Past Psychological History: ADD/ADHD, Anxiety Smoking Status: Current every day smoker Past Alcohol Use History: Heavy Past Drug Use History: None Reported - Past Family History Father Additional Family Medical History / Comment(s): Pt has not kept in close contact with his father for many yrs. Father was an alcoholic and pt believes he has from cirrhosis of the liver. Mother History Unknown: Yes Additional Family Medical History / Comment(s): Pt is not in contact with his mother or his father who he has heard had . General Exam - General Exam Comments Initial Comments: 48-year-old male. Alert and oriented. Limitations: no limitations Head exam: Present: atraumatic, normocephalic, normal inspection Eye exam: Present: normal appearance, PERRL, EOMI. Absent: scleral icterus, conjunctival injection, periorbital swelling ENT exam: Present: normal exam, mucous membranes moist Neck exam: Present: normal inspection Respiratory exam: Present: normal lung sounds bilaterally. Absent: respiratory distress, wheezes, rales, rhonchi, stridor Cardiovascular Exam: Present: regular rate, normal rhythm, normal heart sounds. Absent: systolic murmur, diastolic murmur, rubs, gallop, clicks GI/Abdominal exam: Present: soft, normal bowel sounds. Absent: distended, tenderness, guarding, rebound, rigid Extremities exam: Present: full ROM, normal capillary refill. Absent: tenderness, pedal edema, joint swelling, calf tenderness Right Knee exam: Present: normal inspection, full ROM Lower Leg exam: Present: normal inspection, full ROM Ankle exam: Present: normal inspection, full ROM Foot/Toe exam: Present: full ROM, tenderness, swelling ( is tenderness and swelling over right foot. Evidence of ulceration over the lateral aspect at the distal fifth metatarsal.). Absent: normal inspection Gait: observed and normal Course Vital Signs 04/12/19 14:59 Temperature 98 F Pulse Rate 112 H Respiratory 16 Rate Blood Pressure 102/87 O2 Sat by Pulse 96 Oximetry Medical Decision Making - Medical Decision Making 48-year-old male presented today for evaluation for right diabetic foot wound. He reports he's had increased redness swelling and drainage, for the past few days. The same Patient has significant drainage from the foot and has been malodorous. X-ray shows no evidence of osteomyelitis but evidence of soft tissue swelling infection. Patient's blood cell count was reviewed and u nremarkable. Culture panel shows mild glucose. Patient started on Zosyn and will be placed on vancomycin. Blood culture was completed. Patient had aerobic culture completed as well. Dr. Wayne discussed case with Dr. sheet. Requests ID consult. - Lab Data Result diagrams: 04/12/19 15:16 04/12/19 15:16 Lab Results 04/12/19 04/12/19 Range/Units 15:16 15:16 WBC 10.2 (3.8-10.6) k/uL RBC 4.91 (4.30-5.90) m/uL Hgb 14.4 (13.0-17.5) gm/dL Hct 42.2 (39.0-53.0) % MCV 86.1 (80.0-100.0) fL MCH 29.4 (25.0-35.0) pg MCHC 34.1 (31.0-37.0) g/dL RDW 12.1 (11.5-15.5) % Plt Count 259 (150-450) k/uL Neutrophils % 68 % Lymphocytes % 21 % Monocytes % 6 % Eosinophils % 3 % Basophils % 1 % Neutrophils # 6.9 (1.3-7.7) k/uL Lymphocytes # 2.1 (1.0-4.8) k/uL Monocytes # 0.6 (0-1.0) k/uL Eosinophils # 0.3 (0-0.7) k/uL Basophils # 0.1 (0-0.2) k/uL Sodium 136 L (137-145) mmol/L Potassium 4.7 (3.5-5.1) mmol/L Chloride 100 (98-107) mmol/L Carbon Dioxide 26 (22-30) mmol/L Anion Gap 10 mmol/L BUN 16 (9-20) mg/dL Creatinine 0.64 L (0.66-1.25) mg/dL Est GFR (CKD-EPI)AfAm >90 (>60 ml/min/1.73 sqM) Est GFR (CKD-EPI)NonAf >90 (>60 ml/min/1.73 sqM) Glucose 308 H (74-99) mg/dL Calcium 8.9 (8.4-10.2) mg/dL Total Bilirubin 0.4 (0.2-1.3) mg/dL AST 26 (17-59) U/L ALT 27 (21-72) U/L Alkaline Phosphatase 105 (38-126) U/L Total Protein 6.8 (6.3-8.2) g/dL Albumin 3.6 (3.5-5.0) g/dL - Radiology Data Radiology results: report reviewed Soft tissue infection without convincing radiographic evidence for possible myelitis. Suspicion persist further investigation for 3 throws of scan or MRI they be warranted. Disposition Clinical Impression: Wound infection, Cellulitis of right foot, Diabetes Disposition: ADMITTED IP TO THIS [facility] Condition: Stable Is patient prescribed a controlled substance at d/c from ED?: No Referrals: Hany Rodríguez MD [Primary Care Provider] - 1-2 days Time of Disposition: 17:08
[2019-04-12] MEDS: SODIUM CHLORIDE 0.9% 1,000 ML IV SCH (15:58)
--- NOTE | 2019-04-12 16:16 | XR ---
EXAMINATION TYPE: XR foot complete RT DATE OF EXAM: 04/12/2019 CLINICAL HISTORY: Nonhealing wound for months. TECHNIQUE: Frontal, lateral, and oblique images of the right foot are obtained. COMPARISON: Right foot x-ray February 05, 2019 FINDINGS: There is soft tissue lucency near fifth metatarsal head consistent with soft tissue no bria cent cortical destruction or periosteal reaction clearly seen. Tiny inferior calcaneal spur redemonst rated. Flexion and toes again seen. IMPRESSION: There is soft tissue infection without convincing radiographic evidence for acute osteom yelitis. If clinical suspicion persists further investigation with 3 phase bone scan or MRI may be wa rranted.
[2019-04-12] MEDS ORDERED: VANCOMYCIN IV PER PHARMACY 1 EACH MISC MISCELLANE PRN (17:08)
[2019-04-12] MEDS ORDERED: MORPHINE SULFATE 4 MG/ML SYRINGE IV PRN (17:10)
[2019-04-12] MEDS ORDERED: ONDANSETRON 4 MG/2 ML VIAL IVP PRN (17:10)
[2019-04-12] MEDS ORDERED: NALOXONE 0.4 MG/ML 1 ML VIAL IV PRN (17:10)
[2019-04-12] MEDS ORDERED: ACETAMINOPHEN TAB 325 MG TAB PO PRN (17:10)
[2019-04-12] MEDS ORDERED: VANCOMYCIN 1,500 MG in SODIUM CHLORIDE 0.9% 250 ML IVPB ONE (17:30)
[2019-04-12 18:15] LABS: Glucose,Whole Blood 344 mg/dL (75-99)
[2019-04-12] MEDS ORDERED: ALBUTEROL NEBULIZED 2.5 MG/3 ML INHALATION PRN (18:29)
[2019-04-12] MEDS ORDERED: MECLIZINE 25 MG TAB PO PRN (18:29)
[2019-04-12] MEDS: KETOROLAC 30 MG/ML 1 ML VIAL IVP PRN (19:20)
[2019-04-12] MEDS: oxyCODONE-APAP 5-325MG 1 EACH TAB PO PRN ×2 (19:56→23:46)
[2019-04-12] MEDS: FUROSEMIDE 20 MG TAB PO SCH (20:04)
--- NOTE | 2019-04-12 20:43 | HP ---
HISTORY AND PHYSICAL DATE OF SERVICE: 04/12/2019 CHIEF COMPLAINT: Pain and swelling of the right foot, diabetic foot ulcer. HISTORY OF PRESENT ILLNESS: This 48-year-old gentleman with a past medical history of multiple medical problems including CHF with chronic systolic dysfunction, ejection fraction 20%, history of CAD, history of COPD, diabetes type 2, history of GERD, hypertension, hyperlipidemia, history of myocardial infarction, sleep apnea, supraventricular tachycardia, history of AICD, being followed by Dr. Rodríguez in the outpatient setting is complaining of bilateral foot ulcers. Patient is followed by Dr. Mora in the [facility]. The patient also had left foot ulcer which is almost healed. The patient had a cast applied. The patient also had right foot wound also. The patient had dressing last week. Subsequently patient had some fever, chills, and the patient today because of increased symptoms, there is significant drainage from the right foot. The patient [facility] and was admitted for further evaluation and treatment. A foot x-ray showed soft tissue infection without any evidence of an acute osteomyelitis. There is no history of fever, rigors or chills. No history of headache, loss of consciousness or seizures. PAST MEDICAL HISTORY: Asthma, CAD, CHF, COPD, diabetes, and GERD, hypertension, hyperlipidemia, myocardial infarction, sleep apnea, supraventricular tachycardia. MEDICATIONS: Prior to admission include home medications are: 1. Morphine sulfate. 2. MS-IR 30 mg q.i.d. p.r.n. 3. DuoNeb t.i.d. p.r.n. 4. Lipitor 80 mg q.h.s. 5. Diphenhydramine 50 mg daily p.r.n. 6. ProAir HFA 2 puffs q.6h p.r.n. 7. Toprol-XL 25 mg p.o. daily. 9. Insulin 35-40 a.c. t.i.d. 10.Entresto 24/26 1 p.o. b.i.d. 11.K-Dur 10 mEq p.o. b.i.d. 12.Prilosec 20 mg p.o. daily. 13.[place]-3 fatty acid 1 p.o. b.i.d. 14.Habitrol 1 patch daily. 15.Lasix 60 mg p.o. b.i.d. 16.Advair 1 puff b.i.d. 17.Aspirin 81 mg p.o. daily. ALLERGIES: ZITHROMAX AND LOPID. FAMILY HISTORY: History of alcoholism in the family. SOCIAL HISTORY: History of smoking, continued ongoing. No history of alcohol intake. REVIEW OF SYSTEMS: ENT: No diminished vision. No diminished hearing. CARDIOVASCULAR: No angina or palpitations. RESPIRATIONS: No cough. GI no nausea or vomiting. no dysuria or hematuria. NERVOUS SYSTEM: As mentioned earlier. ALLERGY/IMMUNOLOGY: No asthma or hayfever. MUSCULOSKELETAL as mentioned earlier. HEMATOLOGY/ONCOLOGY: No history of anemia. ENDOCRINE: Mentioned earlier. CONSTITUTIONAL: As mentioned earlier. DERMATOLOGY mentioned earlier. RHEUMATOLOGY: Negative. PSYCHIATRY as mentioned earlier. PHYSICAL EXAMINATION: Alert and oriented times three. Pulse 92, blood pressure 120/80. Respirations 16, temperature 97.9, pulse ox 94% on room air. HEENT: Conjunctivae normal. Oral mucosa moist. NECK is no jugular venous distention. No carotid bruit. No lymph node enlargement. CARDIOVASCULAR SYSTEM: S1, S2. No S3, no S4. RESPIRATORY: Breath sounds diminished in the bases. No rhonchi. No crackles. ABDOMEN: Soft, obese, nontender. No mass palpable. LEGS: Left leg in cast. Otherwise, right leg significant ulceration with tunneling on the lateral part of the foot present with severe tenderness and swelling also present. NERVOUS SYSTEM: Higher functions as mentioned earlier, moves all four limbs. No focal motor deficits. Sensory deficits present. SKIN: Examination of the skin as mentioned earlier. JOINTS: No active deformity arthropathy. LYMPHATICS: No lymph nodes palpable in the neck, axillae or groin. LABS: At this time shows WBC 10.2, hemoglobin 14.4, sodium 136, glucose 308. ASSESSMENT: 1. Right foot wound with possible osteomyelitis with possible sepsis, present on admission. 2. Diabetes mellitus type 2, uncontrolled with hyperglycemia. 3. Hyponatremia. 4. History of asthma. 5. History of coronary artery disease. 6. History of congestive heart failure with chronic systolic dysfunction, ejection fraction 20% previously. 7. Chronic obstructive pulmonary disease. 8. Diabetes mellitus type 2. 9. Gastroesophageal reflux disease. 10.Hypertension. 11.Hyperlipidemia. 12.Myocardial infarction. 13.History of pneumonia. 14.History of supraventricular tachycardia. 15.History of ischemic cardiomyopathy. 16.History of obstructive sleep apnea on CPAP. 17.History of AICD. 18.History of back surgery, degenerative joint disease. 19.History of cardiac catheterization. 20.History of anxiety. 21.Continued ongoing nicotine dependence. RECOMMENDATION AND DISCUSSION: In this 48-year-old gentleman who presented with multiple complex medical issues, we will monitor the patient closely, continue the current medications, management and symptomatic treatment. We will initiate broad-spectrum IV antibiotics. Patient is started on vanco. I will add Vanco and Zosyn. We will continue current medication. Monitor blood sugars closely. Resume the home medications. DVT prophylaxis. Otherwise, I would also recommend Infectious Disease evaluation. Bone scan. Guarded prognosis. Vascular surgery evaluation with Dr. Mora. Guarded prognosis because of multiple complex medical issues. Further recommendations to follow. A copy of this dictation being forwarded to Dr. Rodríguez who is the primary physician. See orders for details. MMODL / IJN: [id number] / MTDD
[2019-04-12 20:54] LABS: Glucose,Whole Blood 326 mg/dL (75-99)
[2019-04-12] MEDS: SYMBICORT 80-4.5 MCG INHALER INHALATION SCH (21:32)
[2019-04-12] MEDS: ATORVASTATIN 80 MG TAB PO SCH (21:54)
[2019-04-12] MEDS: POTASSIUM CHLORIDE ER 10 MEQ TAB.ER.PRT PO SCH (21:55)
[2019-04-12] MEDS: INSULIN DETEMIR (LEVEMIR) 100 UNIT/ML SYR SQ SCH (21:55)
[2019-04-12] MEDS: HEPARIN SODIUM,PORCINE 5,000 UNIT/ML 1 ML VIAL SQ SCH (21:55)
[2019-04-12] MEDS: SACUBITRIL/VALSARTAN 24 MG-26 MG TABLET PO SCH (21:55)
[2019-04-12] MEDS: NON FORMULARY DRUG (Omega-3 Acid Ethyl Esters [Lovaza] 1 GM) PO SCH (22:11)
[2019-04-12] MEDS: INSULIN ASPART (NovoLOG) 100 UNIT/ML VIAL SQ SCH (23:50)
[2019-04-12] MEDS: PIPERACILLIN-TAZOBACTAM 3.375 GM in SODIUM CHLORIDE 0.9% 100 ML IVPB SCH (23:57)
[2019-04-13 00:07] LABS: Glucose,Whole Blood 263 mg/dL (75-99)
[2019-04-13] MEDS ORDERED: VANCOMYCIN 1,500 MG in SODIUM CHLORIDE 0.9% 250 ML IVPB SCH (02:00)
[2019-04-13] MEDS: SODIUM CHLORIDE 0.9% 1,000 ML IV SCH ×3 (03:31→20:18)
[2019-04-13] MEDS: oxyCODONE-APAP 5-325MG 1 EACH TAB PO PRN ×5 (03:31→23:55)
[2019-04-13] MEDS: IBUPROFEN 400 MG TAB PO PRN (04:42)
[2019-04-13] MEDS ORDERED: INSULIN ASPART (NovoLOG) 100 UNIT/ML VIAL SQ SCH ×2 (07:30)
[2019-04-13 07:31] LABS: Glucose,Whole Blood 115 mg/dL (75-99)
[2019-04-13] MEDS: INSULIN ASPART (NovoLOG) 100 UNIT/ML VIAL SQ SCH ×4 (08:08→20:32)
[2019-04-13] MEDS: FUROSEMIDE 20 MG TAB PO SCH ×2 (08:16→16:29)
[2019-04-13] MEDS: PIPERACILLIN-TAZOBACTAM 3.375 GM in SODIUM CHLORIDE 0.9% 100 ML IVPB SCH ×3 (08:17→23:47)
[2019-04-13] MEDS: ASPIRIN 81 MG PO SCH (08:17)
[2019-04-13] MEDS: METOPROLOL SUCCINATE (ER) 25 MG TAB.ER.24H PO SCH (08:17)
[2019-04-13] MEDS: NICOTINE 14MG/24HR PATCH TRANSDERM SCH (08:17)
[2019-04-13] MEDS: HEPARIN SODIUM,PORCINE 5,000 UNIT/ML 1 ML VIAL SQ SCH ×2 (08:17→20:20)
[2019-04-13] MEDS: POTASSIUM CHLORIDE ER 10 MEQ TAB.ER.PRT PO SCH ×2 (08:17→20:15)
[2019-04-13] MEDS: INSULIN DETEMIR (LEVEMIR) 100 UNIT/ML SYR SQ SCH ×2 (08:18→20:32)
[2019-04-13] MEDS: NON FORMULARY DRUG (Omega-3 Acid Ethyl Esters [Lovaza] 1 GM) PO SCH ×2 (08:18→20:21)
[2019-04-13 08:23] LABS: Basophils # (A) 0.1 k/uL (0-0.2); Basophils % (A) 1 %; Eosinophils # (A) 0.5 k/uL (0-0.7); Eosinophils % (A) 6 %; HCT 39.8 % (39.0-53.0); HGB 13.1 gm/dL (13.0-17.5); Lymphocytes # (A) 2.6 k/uL (1.0-4.8); Lymphocytes % (A) 32 %; MCH 28.8 pg (25.0-35.0); MCV 87.3 fL (80.0-100.0); Monocytes # (A) 0.6 k/uL (0-1.0); Monocytes % (A) 7 %; Neutrophils # (A) 4.3 k/uL (1.3-7.7); Neutrophils % (A) 51 %; Platelet Count 267 k/uL (150-450); RBC 4.56 m/uL (4.30-5.90); RDW 13.7 % (11.5-15.5); WBC 8.3 k/uL (3.8-10.6)
[2019-04-13] MEDS ORDERED: DIPH,PERTUS(ACELL)TETVAC-LF 0.5 ML VIAL IM ONE (08:42)
[2019-04-13 08:48] LABS: African American GFR (CKD) >90 (>60 ml/min/1.73 sqM); Anion Gap 9 mmol/L; Blood Urea Nitrogen 19 mg/dL (9-20); Calcium 8.3 mg/dL (8.4-10.2); Carbon Dioxide 25 mmol/L (22-30); Chloride 104 mmol/L (98-107); Glucose 132 mg/dL (74-99); Sodium 138 mmol/L (137-145)
--- NOTE | 2019-04-13 08:54 | P.CONS ---
History of Present Illness - Reason for Consult Consult date: 04/13/19 Diabetic wound - History of Present Illness This is a 48-year-old male seen by Dr. Mora for diabetic wound, b ilateral feet. Patient states that he has had healing of the left foot ulcer and cast was placed last Saturday. Dressing change was done on the right foot last Saturday. On and Saturday, he started having chills. He changed the dressing on Saturday and the wound looked much worse to him with increase in size, swelling, edema. There was also drainage. He also complained of generalized fatigue and decreased appetite. Patient came into [facility] emergency center for evaluation. He has been afebrile, white count 10.2, creatinine 0.64, blood sugar initially 308, albumin 3.6. Wound culture and blood culture been obtained. Foot x-ray showed soft tissue infection without convincing evidence of acute osteomyelitis. Bone scan has been ordered. Patient is a diabetic and follows with Dr. Romero. He states he had a hemoglobin A1c done a couple weeks ago but does not recall the numbers. He thinks are his blood sugars have been better controlled. Our last hemoglobin A1c in 2018 was 14. Patient is unsure when his last tetanus shot was updated which will be done on this admission. Patient has a active smoker of a half pack per day for 30+ years. He has had this wound on the right foot for 4 months. He denies any recent injury. Review of Systems Constitutional: Reports chills, Reports fatigue, Reports fever, Reports malaise, Reports poor appetite Eyes: denies blurred vision, denies pain Ears, nose, mouth and throat: Denies dental pain, Denies headache, Denies mouth pain, Denies nasal congestion, Denies nasal discharge, Denies sore throat, Denies vertigo Cardiovascular: Denies chest pain, Denies decreased exercise tolerance, Denies d yspnea on exertion, Denies edema, Denies leg edema, Denies lightheadedness, Denies shortness of breath, Denies syncope Respiratory: Reports sleep apnea, Denies cough, Denies cough with sputum, Denies dyspnea, Denies hemoptysis, Denies home oxygen, Denies wheezing Gastrointestinal: Denies abdominal pain, Denies diarrhea, Denies nausea, Denies vomiting Genitourinary: Denies dysuria, Denies urinary retention Musculoskeletal: Denies frequent falls, Denies gait dysfunction, Denies muscle weakness, Denies myalgias Integumentary: Reports color changes, Reports darkening of skin, Reports wounds, Denies pruritus, Denies rash Neurological: Denies change in mentation, Denies confusion, Denies gait dysfunction, Denies numbness, Denies seizures, Denies weakness Psychiatric: Denies anxiety, Denies depression Endocrine: Reports fatigue, Reports high blood sugars, Denies weight change Past Medical History Past Medical History: Asthma, Coronary Artery Disease (CAD), Chest Pain / Angina, Heart Failure, COPD, Diabetes Mellitus, GERD/Reflux, Hyperlipidemia, Hypertension, Myocardial Infarction ([place]), Pneumonia, Sleep Apnea/CPAP/BIPAP, Supraventricular Tachycardia (SVT) Additional Past Medical History / Comment(s): Ischemic cardiomyopathy, chronic CHF, SVT, IDDM type II, KAMINI with CPAP occasionally used, chronic cervical/back pain, DJD, diabetic foot wounds x 4 months. Last Myocardial Infarction Date:: 12/11/17 History of Any Multi-Drug Resistant Organisms: None Reported Past Surgical History: Adenoidectomy, AICD, Back Surgery, Cholecystectomy, EPS, Heart Catheterization, Pacemaker, Tonsillectomy Additional Past Surgical History / Comment(s): 12/10/17 cardiac cath, previous cardiac cath, 09/02/14 AICD/pacer, EGD/colonoscopy, low back surgery with fusion. Past Anesthesia/Blood Transfusion Reactions: Motion Sickness Additional Past Anesthesia/Blood Transfusion Reaction / Comm: Pt states he received blood with back surgery without reaction. Type of Cardiac Device: Permanent Pacemaker, AICD Device Placement Date:: 09-02-14 Past Psychological History: ADD/ADHD, Anxiety Additional Psychological History / Comment(s): Pt lives with 18 yr-old son. There are cats in the home. Pt is very independent. He uses a cane prn. He drives. Pt states he has ADHD. Pt is disabled. He has a glucometer and nebulizer. The patient worked in the past building [employer] and [employer]. Smoking Status: Current every day smoker Past Alcohol Use History: Heavy Additional Past Alcohol Use History / Comment(s): Pt started smoking in 1984 and was a 1 ppd smoker. Currently smokig 1/2 pack daily. Pt states he was a heavy drinker in the past but quit drinking 20 yrs ago. Past Drug Use History: None Reported Additional Drug Use History / Comment(s): Pt states he takes 2-4 "hits" off marijuana joint nightly. - Past Family History Father Additional Family Medical History / Comment(s): Pt has not kept in close contact with his father for many yrs. Father was an alcoholic and pt believes he has from cirrhosis of the liver. Mother History Unknown: Yes Additional Family Medical History / Comment(s): Pt is not in contact with his mother or his father who he has heard had . Medications and Allergies Home Medications Medication Instructions Recorded Confirmed Type Aspirin 81 mg PO DAILY 10/21/15 04/12/19 History Fluticasone/Salmeterol [Advair 1 puff INHALATION RT-BID 03/28/18 04/12/19 History 100-50 Diskus] Omeprazole [PriLOSEC] 20 mg PO DAILY 03/28/18 04/12/19 History Albuterol Sulfate [Proair Hfa] 2 puff INHALATION RT-Q6H PRN #1 04/06/18 04/12/19 Rx [email or web address] Sacubitril/Valsartan [Entresto 24 1 tab PO BID 05/03/18 04/12/19 History mg-26 mg Tablet] Nicotine 14Mg/24Hr Patch [Habitrol] 1 patch TRANSDERM DAILY #30 patch 05/06/18 04/12/19 Rx Atorvastatin [Lipitor] 80 mg PO HS 02/05/19 04/12/19 History Furosemide [Lasix] 60 mg PO BID 02/05/19 04/12/19 History Ipratropium-Albuterol Nebulize 3 ml INHALATION RT-TID PRN 02/05/19 04/12/19 History [Duoneb 0.5 mg-3 mg/3 ml Soln] Morphine Sulfate Ir [MSIR] 30 mg PO QID PRN 02/05/19 04/12/19 History [place]-3 Acid Ethyl Esters [Lovaza] 1 gm PO BID 02/05/19 04/12/19 History Potassium Chloride ER [K-Dur 10] 10 meq PO BID 02/05/19 04/12/19 History INSULIN ASPART (NovoLOG) [NovoLOG 35 - 40 unit SQ AC-TID 04/12/19 04/12/19 History (formulary)] Insulin Detemir [Levemir Flextouch] 100 units SQ BID 04/12/19 04/12/19 History Metoprolol Succinate (ER) [Toprol 25 mg PO DAILY 04/12/19 04/12/19 History Xl] dimenhyDRINATE [Dimenhydrinate] 50 mg PO DAILY PRN 04/12/19 04/12/19 History Allergies Allergy/AdvReac Type Severity Reaction Status Date / Time azithromycin Allergy Anaphylaxis Verified 04/12/19 17:17 gemfibrozil [From Lopid] Allergy Rash/Hives Verified 04/12/19 17:17 Physical Exam Vitals: Vital Signs Temp Pulse Pulse Resp BP BP Pulse Ox 04/13/19 05:00 96.8 F L 76 18 102/64 96 04/13/19 00:00 80 18 04/12/19 23:00 97.7 F 80 18 117/79 97 04/12/19 18:15 97.9 F 92 123/88 95 04/12/19 17:34 90 16 104/70 96 04/12/19 14:59 98 F 112 H 16 102/87 96 Intake and Output 04/12/19 04/13/19 04/13/19 22:59 06:59 14:59 Intake Total 500 500 Balance 500 500 Intake: Oral 500 500 Other: # Voids 1 2 # Bowel Movements 0 0 Weight 104.19 kg Gen: This is a obese 48-year-old male. He is sitting on the edge of the bed and appears to be comfortable and in no acute distress. HEENT: Head is atraumatic, normocephalic. Pupils equal, round. Sclerae is anicteric. Oral mucous membranes are moist. No thrush noted. NECK: Supple. No JVD. No lymphadenopathy. No thyromegaly. LUNGS: Clear to auscultation. No wheezes or rhonchi. No intercostal retractions. HEART: Regular rate and rhythm. No murmur. ABDOMEN: Soft. Bowel sounds are present. No masses. No tenderness. EXTREMITIES: Cast in place to the left lower extremity from the knee to toes. Right foot has dressing in place which was not removed. Capillary refill 3 seconds. NEUROLOGICAL: Patient is awake, alert and oriented x3. Cranial nerves 2 through 12 are grossly intact. Results Results: Laboratory Results WBC 8.3 k/uL (3.8-10.6) 04/13/19 07:59 RBC 4.56 m/uL (4.30-5.90) 04/13/19 07:59 Hgb 13.1 gm/dL (13.0-17.5) 04/13/19 07:59 Hct 39.8 % (39.0-53.0) 04/13/19 07:59 MCV 87.3 fL (80.0-100.0) 04/13/19 07:59 MCH 28.8 pg (25.0-35.0) 04/13/19 07:59 MCHC 33.0 g/dL (31.0-37.0) 04/13/19 07:59 RDW 13.7 % (11.5-15.5) 04/13/19 07:59 Plt Count 267 k/uL (150-450) 04/13/19 07:59 Neutrophils % 51 % 04/13/19 07:59 Lymphocytes % 32 % 04/13/19 07:59 Monocytes % 7 % 04/13/19 07:59 Eosinophils % 6 % 04/13/19 07:59 Basophils % 1 % 04/13/19 07:59 Neutrophils # 4.3 k/uL (1.3-7.7) 04/13/19 07:59 Lymphocytes # 2.6 k/uL (1.0-4.8) 04/13/19 07:59 Monocytes # 0.6 k/uL (0-1.0) 04/13/19 07:59 Eosinophils # 0.5 k/uL (0-0.7) 04/13/19 07:59 Basophils # 0.1 k/uL (0-0.2) 04/13/19 07:59 Sodium 138 mmol/L (137-145) 04/13/19 07:59 Potassium 4.0 mmol/L (3.5-5.1) 04/13/19 07:59 Chloride 104 mmol/L (98-107) 04/13/19 07:59 Carbon Dioxide 25 mmol/L (22-30) 04/13/19 07:59 Anion Gap 9 mmol/L 04/13/19 07:59 BUN 19 mg/dL (9-20) 04/13/19 07:59 Creatinine 0.89 mg/dL (0.66-1.25) 04/13/19 07:59 Est GFR (CKD-EPI)AfAm >90 (>60 ml/min/1.73 sqM) 04/13/19 07:59 Est GFR (CKD-EPI)NonAf >90 (>60 ml/min/1.73 sqM) 04/13/19 07:59 Glucose 132 mg/dL (74-99) H 04/13/19 07:59 POC Glucose (mg/dL) 115 mg/dL (75-99) H 04/13/19 07:05 POC Glu Ceramic Sprayer ID Jolanta Spears 04/13/19 07:05 Calcium 8.3 mg/dL (8.4-10.2) L 04/13/19 07:59 Total Bilirubin 0.4 mg/dL (0.2-1.3) 04/12/19 15:16 AST 26 U/L (17-59) 04/12/19 15:16 ALT 27 U/L (21-72) 04/12/19 15:16 Alkaline Phosphatase 105 U/L (38-126) 04/12/19 15:16 Total Protein 6.8 g/dL (6.3-8.2) 04/12/19 15:16 Albumin 3.6 g/dL (3.5-5.0) 04/12/19 15:16 CBC & Chem 7: 04/13/19 07:59 04/14/19 07:31 Labs: Abnormal Lab Results - Last 24 Hours (Table) 04/12/19 04/12/19 04/12/19 Range/Units 15:16 18:12 20:43 Sodium 136 L (137-145) mmol/L Creatinine 0.64 L (0.66-1.25) mg/dL Glucose 308 H (74-99) mg/dL POC Glucose (mg/dL) 344 H 326 H (75-99) mg/dL 04/12/19 04/13/19 Range/Units 23:53 07:05 Sodium (137-145) mmol/L Creatinine (0.66-1.25) mg/dL Glucose (74-99) mg/dL POC Glucose (mg/dL) 263 H 115 H (75-99) mg/dL Microbiology - Last 24 Hours (Table) 04/12/19 15:16 Gram Stain - Preliminary Foot - Right Wound Culture - Preliminary Assessment and Plan Plan: This is a 48-year-old male under treatment with Dr. Mora for diabetic foot ulcers. Patient presents with worsening of a right foot ulcer. Bone scan is in progress. Patient is currently on Zosyn and vancomycin which will be continued. Wound culture and blood culture in progress. Tetanus status will be updated. A1c will be ordered and patient will require tight glucose control for healing. Multivitamin added. Continue supportive care. Further medications as patient progresses. The above dictated assessment and findings were discussed with Dr. Dallas. The impression and plan of care have been directed as dictated. Marilou Ambrose nurse practitioner acting as scribe for Dr. Dallas.
[2019-04-13] MEDS ORDERED: PANTOPRAZOLE 40 MG/10 ML VIAL IV SCH (09:00)
[2019-04-13] MEDS ORDERED: NON FORMULARY DRUG (Omeprazole 20 MG) PO SCH (09:00)
[2019-04-13] MEDS: SYMBICORT 80-4.5 MCG INHALER INHALATION SCH ×3 (09:23→20:33)
[2019-04-13] MEDS: IPRATROPIUM-ALBUTEROL 3 ML NEB INHALATION PRN ×3 (09:37→20:33)
[2019-04-13] MEDS: SACUBITRIL/VALSARTAN 24 MG-26 MG TABLET PO SCH ×2 (10:03→20:16)
--- NOTE | 2019-04-13 11:30 | P.GSCN ---
History of Present Illness Consult date: 04/13/19 Reason for Consult: Diabetic foot wound, treatment recommendations Requesting physician: Frannie Borja History of present illness: This is a 48-year-old gentleman who follows on an outpatient basis with Dr. Hany Rodríguez. He has multiple comorbidities including uncontrolled diabetes and current tobacco dependence, and follows in the wound care clinic on Wednesdays with Dr. Mora for diabetic wounds to his bilateral feet. He was seen last Saturday in the wound care center, and his left foot had mostly healed over and he was placed in a total contact cast. Dressing change was completed to the right foot wound with plans for total contact cast once healing had been completed. Apparently on and Saturday he began to feel sick and flulike with chills. He waited until Saturday to change her dressing to his right lower extremity and when he did the wound appeared very oozy with a foul odor. In addition he states his right lower extremity is more reddened and edematous. He also complains of new right-sided leg pain which is sharp and continuous in nature. He presented to [facility] emergency room for evaluation and treatment. He has remained afebrile, white blood cell count is normal, blood sugars remain uncontrolled in the 200-300s. Foot x-ray in the emergency room demonstrated no evidence for acute osteomyelitis, however there was suggestion of soft tissue infection. He was started on IV vancomycin and Zosyn and admitted for further evaluation and treatment with consultation placed to Dr. Dallas and Dr. Mora. Review of Systems Review of system was completed and was negative except as noted. - Constitutional Reports chills, Reports fatigue, Reports malaise - Musculoskeletal Reports as per HPI right: foot pain, foot swelling - Integumentary Reports wounds Past Medical History Past Medical History: Asthma, Coronary Artery Disease (CAD), Chest Pain / Angina, Heart Failure, COPD, Diabetes Mellitus, GERD/Reflux, Hyperlipidemia, Hypertension, Myocardial Infarction ([place]), Pneumonia, Sleep Apnea/CPAP/BIPAP, Supraventricular Tachycardia (SVT) Additional Past Medical History / Comment(s): Ischemic cardiomyopathy, chronic CHF, SVT, IDDM type II, KAMINI with CPAP occasionally used, chronic cervical/back pain, DJD, diabetic foot wounds x 4 months. Last Myocardial Infarction Date:: 12/11/17 History of Any Multi-Drug Resistant Organisms: None Reported Past Surgical History: Adenoidectomy, AICD, Back Surgery, Cholecystectomy, EPS, Heart Catheterization, Pacemaker, Tonsillectomy Additional Past Surgical History / Comment(s): 12/10/17 cardiac cath, previous cardiac cath, 09/02/14 AICD/pacer, EGD/colonoscopy, low back surgery with fusion. Past Anesthesia/Blood Transfusion Reactions: Motion Sickness Additional Past Anesthesia/Blood Transfusion Reaction / Comm: Pt states he received blood with back surgery without reaction. Type of Cardiac Device: Permanent Pacemaker, AICD Device Placement Date:: 09-02-14 Past Psychological History: ADD/ADHD, Anxiety Additional Psychological History / Comment(s): Pt lives with 18 yr-old son. There are cats in the home. Pt is very independent. He uses a cane prn. He drives. Pt states he has ADHD. Pt is disabled. He has a glucometer and nebulizer. The patient worked in the past building [employer] and [employer]. Smoking Status: Current every day smoker Past Alcohol Use History: Heavy Additional Past Alcohol Use History / Comment(s): Pt started smoking in 1984 and was a 1 ppd smoker. Currently smokig 1/2 pack daily. Pt states he was a heavy drinker in the past but quit drinking 20 yrs ago. Past Drug Use History: None Reported Additional Drug Use History / Comment(s): Pt states he takes 2-4 "hits" off marijuana joint nightly. - Past Family History Father Additional Family Medical History / Comment(s): Pt has not kept in close contact with his father for many yrs. Father was an alcoholic and pt believes he has from cirrhosis of the liver. Mother History Unknown: Yes Additional Family Medical History / Comment(s): Pt is not in contact with his mother or his father who he has heard had . Medications and Allergies Home Medications Medication Instructions Recorded Confirmed Type Aspirin 81 mg PO DAILY 10/21/15 04/12/19 History Fluticasone/Salmeterol [Advair 1 puff INHALATION RT-BID 03/28/18 04/12/19 History 100-50 Diskus] Omeprazole [PriLOSEC] 20 mg PO DAILY 03/28/18 04/12/19 History Albuterol Sulfate [Proair Hfa] 2 puff INHALATION RT-Q6H PRN #1 04/06/18 04/12/19 Rx [email or web address] Sacubitril/Valsartan [Entresto 24 1 tab PO BID 05/03/18 04/12/19 History mg-26 mg Tablet] Nicotine 14Mg/24Hr Patch [Habitrol] 1 patch TRANSDERM DAILY #30 patch 05/06/18 04/12/19 Rx Atorvastatin [Lipitor] 80 mg PO HS 02/05/19 04/12/19 History Furosemide [Lasix] 60 mg PO BID 02/05/19 04/12/19 History Ipratropium-Albuterol Nebulize 3 ml INHALATION RT-TID PRN 02/05/19 04/12/19 History [Duoneb 0.5 mg-3 mg/3 ml Soln] Morphine Sulfate Ir [MSIR] 30 mg PO QID PRN 02/05/19 04/12/19 History [place]-3 Acid Ethyl Esters [Lovaza] 1 gm PO BID 02/05/19 04/12/19 History Potassium Chloride ER [K-Dur 10] 10 meq PO BID 02/05/19 04/12/19 History INSULIN ASPART (NovoLOG) [NovoLOG 35 - 40 unit SQ AC-TID 04/12/19 04/12/19 History (formulary)] Insulin Detemir [Levemir Flextouch] 100 units SQ BID 04/12/19 04/12/19 History Metoprolol Succinate (ER) [Toprol 25 mg PO DAILY 04/12/19 04/12/19 History Xl] dimenhyDRINATE [Dimenhydrinate] 50 mg PO DAILY PRN 04/12/19 04/12/19 History Allergies Allergy/AdvReac Type Severity Reaction Status Date / Time azithromycin Allergy Anaphylaxis Verified 04/12/19 17:17 gemfibrozil [From Lopid] Allergy Rash/Hives Verified 04/12/19 17:17 Surgical - Exam Vital Signs Temp Pulse Resp BP Pulse Ox 98 F 112 H 16 102/87 96 04/12/19 14:59 04/12/19 14:59 04/12/19 14:59 04/12/19 14:59 04/12/19 14:59 - General well developed, well nourished, no distress, chronically ill, obese - Eyes PERRL, normal ocular movement - ENT no hearing loss - Neck no masses, no bruits, trachea midline - Respiratory Lungs sounds diminished bilaterally. Respirations even, nonlabored. Currently on room air with oxygen saturation 96%. - Cardiovascular S1, S2 present. Regular rate and rhythm. Palpable peripheral pulses bilaterally. Trace nonpitting edema to right lower extremity. - Abdomen Abdomen: soft, non tender, bowel sounds - Genitourinary Deferred - Rectum Deferred - Integumentary Right lateral plantar foot wound present, approximately 3 cm across entire area with superior part of the wound bed and scaly, soft, able to feel bone with exploration, inferior part approximately 1 cm, with induration approximately 1 cm. Wound is somewhat foul-smelling upon dressing change. Surrounding area is erythematous and edematous. See pictures in chart. Total contact cast present to left lower extremity. - Neurologic normal coordination - Musculoskeletal normal posture - Psychiatric oriented to time, oriented to person, oriented to place, speech is normal, memory intact Results - Labs 04/13/19 07:59 04/13/19 07:59 Abnormal Lab Results - Last 24 Hours (Table) 04/12/19 04/12/19 04/12/19 Range/Units 15:16 18:12 20:43 Sodium 136 L (137-145) mmol/L Creatinine 0.64 L (0.66-1.25) mg/dL Glucose 308 H (74-99) mg/dL POC Glucose (mg/dL) 344 H 326 H (75-99) mg/dL Calcium (8.4-10.2) mg/dL 04/12/19 04/13/19 04/13/19 Range/Units 23:53 07:05 07:59 Sodium (137-145) mmol/L Creatinine (0.66-1.25) mg/dL Glucose 132 H (74-99) mg/dL POC Glucose (mg/dL) 263 H 115 H (75-99) mg/dL Calcium 8.3 L (8.4-10.2) mg/dL Microbiology - Last 24 Hours (Table) 04/12/19 15:16 Gram Stain - Preliminary Foot - Right Wound Culture - Preliminary Diabetes panel 04/12/19 04/13/19 Range/Units 15:16 07:59 Sodium 136 L 138 (137-145) mmol/L Potassium 4.7 4.0 (3.5-5.1) mmol/L Chloride 100 104 (98-107) mmol/L Carbon Dioxide 26 25 (22-30) mmol/L BUN 16 19 (9-20) mg/dL Creatinine 0.64 L 0.89 (0.66-1.25) mg/dL Glucose 308 H 132 H (74-99) mg/dL Calcium 8.9 8.3 L (8.4-10.2) mg/dL AST 26 (17-59) U/L ALT 27 (21-72) U/L Alkaline Phosphatase 105 (38-126) U/L Total Protein 6.8 (6.3-8.2) g/dL Albumin 3.6 (3.5-5.0) g/dL Calcium panel 04/12/19 04/13/19 Range/Units 15:16 07:59 Calcium 8.9 8.3 L (8.4-10.2) mg/dL Albumin 3.6 (3.5-5.0) g/dL Pituitary panel 04/12/19 04/13/19 Range/Units 15: 07:59 Sodium 136 L 138 (137-145) mmol/L Potassium 4.7 4.0 (3.5-5.1) mmol/L Chloride 100 104 (98-107) mmol/L Carbon Dioxide 26 25 (22-30) mmol/L BUN 16 19 (9-20) mg/dL Creatinine 0.64 L 0.89 (0.66-1.25) mg/dL Glucose 308 H 132 H (74-99) mg/dL Calcium 8.9 8.3 L (8.4-10.2) mg/dL Adrenal panel 04/12/19 04/13/19 Range/Units 15:16 07:59 Sodium 136 L 138 (137-145) mmol/L Potassium 4.7 4.0 (3.5-5.1) mmol/L Chloride 100 104 (98-107) mmol/L Carbon Dioxide 26 25 (22-30) mmol/L BUN 16 19 (9-20) mg/dL Creatinine 0.64 L 0.89 (0.66-1.25) mg/dL Glucose 308 H 132 H (74-99) mg/dL Calcium 8.9 8.3 L (8.4-10.2) mg/dL Total Bilirubin 0.4 (0.2-1.3) mg/dL AST 26 (17-59) U/L ALT 27 (21-72) U/L Alkaline Phosphatase 105 (38-126) U/L Total Protein 6.8 (6.3-8.2) g/dL Albumin 3.6 (3.5-5.0) g/dL - Imaging Additional studies: Foot wound x-ray reviewed, wound care notes from last week's visit at the wound care center reviewed Assessment and Plan Assessment: 1. Right lateral plantar foot diabetic ulcer 2. Left lateral plantar foot diabetic ulcer, currently in contact cast 3. Uncontrolled diabetes mellitus with hyperglycemia 4. Current tobacco dependence Plan: The patient was seen and examined at the bedside. Chart/diagnostics were reviewed including Dr. Mora's wound care center notes from most recent visit. Patient is insistent that the left lower extremity total contact cast be removed. He also indicates that he is not willing to have a total contact cast placed on the right leg ever. Right foot wound was cleaned with normal saline, absorptive silver was applied, covered with 4 x 4 and wrapped with Curlex dressing. Orders placed to change dressing Mondays, Wednesdays, Fridays. Patient should keep leg elevated at all times except when eating or toileting, this was discussed in detail with the patient. In addition, patient's blood sugars need much tighter control. Patient was encouraged to quit smoking. Discussion was had with patient the extent to which uncontrolled diabetes and smoking are contributing to his disease process. Continue antibiotics per recommendations from Dr. Dallas. Total contact cast about to be discontinued per Dr. Dallas. Bone scan in progress. Medical management of other comorbidities per primary care service. More recommendations to follow. Thank you Dr. Borja for this consult. Will continue to follow along with you. Time with Patient: Greater than 30
[2019-04-13 11:51] LABS: Glucose,Whole Blood 189 mg/dL (75-99)
[2019-04-13] MEDS: VANCOMYCIN 1,500 MG in SODIUM CHLORIDE 0.9% 250 ML IVPB SCH ×2 (13:07→20:23)
[2019-04-13] MEDS: MULTIVITAMINS, THERA 1 EACH TAB PO SCH (13:07)
[2019-04-13 13:17] VITALS: BMI 33.9
--- NOTE | 2019-04-13 14:27 | NM ---
EXAMINATION TYPE: NM bone 3 phase DATE OF EXAM: 04/13/2019 COMPARISON: Right foot 04/12/2019 HISTORY: Osteomyelitis right foot, nonhealing wound Triple phase bone scintigraphy was performed following the injection of 27 mCi Tc 99m MDP. Immediate images and 4 hours post injection images acquired at the level of the feet. FINDINGS: Increased blood flow, blood pool activity noted to the lateral aspect of the right foot, there is abn ormal focal uptake involving the fifth metatarsal and proximal phalanx of the right foot on delayed i mages. IMPRESSION: Findings compatible with osteomyelitis.
[2019-04-13 17:10] LABS: Glucose,Whole Blood 234 mg/dL (75-99)
--- NOTE | 2019-04-13 17:13 | PN ---
PROGRESS NOTE DATE OF SERVICE: 04/13/2019 This 48-year-old gentleman admitted with pain and swelling of the right foot with diabetic ulcer is being closely monitored at this time. The cultures are negative at this time. The patient also had uncontrolled blood sugars up to 326 at the time of admission. Patient being closely monitored. There is no history of fever, rigors or chills. PAST MEDICAL HISTORY: Reviewed. REVIEW OF SYSTEM: CARDIOVASCULAR: No angina or palpitations. RESPIRATIONS: As mentioned earlier. GI: As mentioned earlier. : As mentioned earlier. Endocrine: As mentioned earlier. Musculoskeletal: As mentioned earlier. DERMATOLOGY as mentioned earlier. CURRENT MEDICATIONS: Reviewed and include: 1. Tylenol 650 q.6h p.r.n. 2. Ventolin 2.5 q.6h. 3. DuoNeb q.i.d. and p.r.n. 4. Aspirin 81 mg. 5. Lipitor 80 mg. 6. Symbicort 80/4.5 two puffs b.i.d. 7. Lasix 60 mg p.o. b.i.d. 8. Heparin 5000 subcu b.i.d. 9. Motrin 400 mg q.6h p.r.n. 10.NovoLog. 11.Levemir 100 units subcu b.i.d. 12.Toradol 30 mg q.6h. 13.Antivert. 14.Toprol-XL. 15.MS-IR 30 mg daily. 16.Multivitamins. 17.Narcan. 18.Habitrol 14. 19.[place]-3 fatty acid. 20.Zofran. 21.Percocet. 22.Protonix. 23.Entresto. 24.Vancomycin. PHYSICAL EXAM: Patient is alert, oriented x3. Pulse 76, blood pressure is 100/64, respiration 18, temperature 96.8, pulse ox 96% on room air. HEENT: Conjunctivae normal. NECK: No JVD. CARDIOVASCULAR: S1, S2 muffled. RESPIRATORY: Breath sounds diminished in the bases. A few scattered rhonchi and crackles. ABDOMEN is soft, nontender. LEGS are no edema. CENTRAL NERVOUS SYSTEM: No focal deficits. LABS: CBC within normal limits. BMP is also within normal limits. ASSESSMENT: 1. Right foot wound with possible osteomyelitis with possible sepsis present on admission. 2. Diabetes type 2, uncontrolled with hyperglycemia. 3. Hyponatremia. 4. History of asthma. 5. History of coronary artery disease. 6. History of congestive heart failure with chronic systolic dysfunction, ejection fraction 20% previously. 7. Chronic obstructive pulmonary disease. 8. Diabetes type 2. 9. Gastroesophageal reflux disease. 10.Hypertension. 11.Hyperlipidemia. 12.Myocardial infarction. 13.History of pneumonia. 14.History of supraventricular tachycardia. 15.History of ischemic cardiomyopathy. 16.History of obstructive sleep apnea on CPAP. 17.History of AICD. 18.History of back surgery, degenerative joint disease. 19.History of cardiac catheterization. 20.History of anxiety. 21.Continued ongoing nicotine dependence. RECOMMENDATIONS AND DISCUSSION: Recommend to continue current medications, continue to monitor. Symptomatic treatment. Otherwise, at this time, we will monitor the patient closely. I would recommend continue with broad-spectrum IV antibiotics. The patient is also on Levemir 100 daily and mealtime and scale. Continue the antibiotics. Await cultures. Closely follow with vascular surgery and Infectious Disease. Continue the pain medications. DVT prophylaxis. Guarded prognosis because of multiple complex medical issues. Further recommendations to follow. We will also add mealtime insulin coverage also. MMODL / IJN: [id number] /
[2019-04-13] MEDS ORDERED: VANCOMYCIN TROUGH DUE 1 EACH MISC MISCELLANE ONE (19:00)
[2019-04-13 19:48] LABS: Hemoglobin A1C 10.1 % (4.0-6.0)
[2019-04-13] MEDS: ATORVASTATIN 80 MG TAB PO SCH (20:14)
[2019-04-13 20:33] LABS: Glucose,Whole Blood 147 mg/dL (75-99)
--- NOTE | 2019-04-13 21:58 | P.CON ---
Consult Note - . Consult date: 04/13/19 Assessment/Plan:: This is a 48-year-old male seen by Dr. Mora for diabetic wound, bilateral feet. Patient states that he has had healing of the left foot ulcer and cast was placed last Saturday. Dressing change was done on the right foot last Saturday. On and Saturday, he started having chills. He changed the dressing on Saturday and the wound looked much worse to him with increase in size, swelling, edema. There was also drainage. He also complained of generalized fatigue and decreased appetite. Patient came into [facility] emergency center for evaluation. He has been afebrile, white count 10.2, creatinine 0.64, blood sugar initially 308, albumin 3.6. Wound culture and blood culture been obtained. Foot x-ray showed soft tissue infection without convincing evidence of acute osteomyelitis. Bone scan has been ordered. Patient is a diabetic and follows with Dr. Romero. He states he had a hemoglobin A1c done a couple weeks ago but does not recall the numbers. He thinks are his blood sugars have been better controlled. Our last hemoglobin A1c in 2018 was 14. Patient is unsure when his last tetanus shot was updated which will be done on this admission. Patient has a active smoker of a half pack per day for 30+ years. He has had this wound on the right foot for 4 months. He denies any recent injury. Please see the consult note is dictated by nurse practitioner Mrs. Marilou Ambrose. 48-year-old male with a long-standing history of diabetes mellitus poorly controlled presents with worsening wound to the right foot which became quite malodorous enhance drainage, which resulted in him coming to the emergency center. He's had a total contact cast on the left leg. Arrangements were made for this to be removed. The left foot has no active ulceration at this time. As noted the right foot has the gangrenous change and will need surgical debridement. Antibiotic therapy is initiated with vancomycin and Zosyn while cultures are pending. Wound care was the silver alginate and offloading. Improved glucose control is extremely important that hopefully with smoking cessation we'll see some improvement. Await the surgical plan, this will help determine the course of antibiotic therapy at discharge. I agree with evaluation, assessment and plan as dictated by nurse practitioner Mrs. Marilou Ambrose.
[2019-04-13] MEDS: KETOROLAC 30 MG/ML 1 ML VIAL IVP PRN (23:48)
[2019-04-14] MEDS: VANCOMYCIN 1,500 MG in SODIUM CHLORIDE 0.9% 250 ML IVPB SCH ×3 (03:52→19:39)
[2019-04-14 07:37] LABS: Glucose,Whole Blood 112 mg/dL (75-99)
[2019-04-14] MEDS: INSULIN ASPART (NovoLOG) 100 UNIT/ML VIAL SQ SCH ×5 (07:44→21:00)
[2019-04-14] MEDS: FUROSEMIDE 20 MG TAB PO SCH ×2 (07:59→16:27)
[2019-04-14] MEDS: ASPIRIN 81 MG PO SCH (07:59)
[2019-04-14] MEDS: NICOTINE 14MG/24HR PATCH TRANSDERM SCH (07:59)
[2019-04-14] MEDS: HEPARIN SODIUM,PORCINE 5,000 UNIT/ML 1 ML VIAL SQ SCH ×2 (07:59→20:45)
[2019-04-14] MEDS: METOPROLOL SUCCINATE (ER) 25 MG TAB.ER.24H PO SCH (07:59)
[2019-04-14] MEDS: SACUBITRIL/VALSARTAN 24 MG-26 MG TABLET PO SCH ×2 (07:59→20:44)
[2019-04-14] MEDS: PANTOPRAZOLE 40 MG TABLET PO SCH (07:59)
[2019-04-14] MEDS: INSULIN DETEMIR (LEVEMIR) 100 UNIT/ML SYR SQ SCH ×2 (07:59→20:59)
[2019-04-14] MEDS: POTASSIUM CHLORIDE ER 10 MEQ TAB.ER.PRT PO SCH ×2 (08:00→20:45)
[2019-04-14] MEDS: NON FORMULARY DRUG (Omega-3 Acid Ethyl Esters [Lovaza] 1 GM) PO SCH ×2 (08:00→20:44)
[2019-04-14] MEDS: SODIUM CHLORIDE 0.9% 1,000 ML IV SCH ×2 (08:01→17:30)
[2019-04-14 08:06] LABS: Potassium 3.8 mmol/L (3.5-5.1)
[2019-04-14 08:07] LABS: African American GFR (CKD) >90 (>60 ml/min/1.73 sqM); Anion Gap 8 mmol/L; Blood Urea Nitrogen 14 mg/dL (9-20); Calcium 8.5 mg/dL (8.4-10.2); Carbon Dioxide 24 mmol/L (22-30); Chloride 109 mmol/L (98-107); Glucose 108 mg/dL (74-99); Sodium 141 mmol/L (137-145)
[2019-04-14] MEDS: PIPERACILLIN-TAZOBACTAM 3.375 GM in SODIUM CHLORIDE 0.9% 100 ML IVPB SCH ×3 (08:07→23:39)
[2019-04-14] MEDS: oxyCODONE-APAP 5-325MG 1 EACH TAB PO PRN ×3 (08:07→16:27)
[2019-04-14 08:42] LABS: Basophils # (A) 0.2 k/uL (0-0.2); Basophils % (A) 2 %; Eosinophils # (A) 0.4 k/uL (0-0.7); Eosinophils % (A) 5 %; HCT 38.2 % (39.0-53.0); HGB 13.1 gm/dL (13.0-17.5); Lymphocytes # (A) 2.7 k/uL (1.0-4.8); Lymphocytes % (A) 31 %; MCH 30.2 pg (25.0-35.0); MCHC 34.3 g/dL (31.0-37.0); MCV 87.9 fL (80.0-100.0); Mean Platelet Volume 9.9; Monocytes # (A) 0.7 k/uL (0-1.0); Monocytes % (A) 8 %; Neutrophils # (A) 4.8 k/uL (1.3-7.7); Neutrophils % (A) 53 %; Platelet Count 180 k/uL (150-450); RBC 4.34 m/uL (4.30-5.90); RDW 13.6 % (11.5-15.5)
[2019-04-14] MEDS: SYMBICORT 80-4.5 MCG INHALER INHALATION SCH ×2 (09:05→20:50)
[2019-04-14 11:48] LABS: Glucose,Whole Blood 166 mg/dL (75-99)
[2019-04-14] MEDS: IBUPROFEN 400 MG TAB PO PRN ×2 (11:53→17:39)
[2019-04-14] MEDS: MULTIVITAMINS, THERA 1 EACH TAB PO SCH (11:53)
--- NOTE | 2019-04-14 13:24 | PN ---
PROGRESS NOTE DATE OF SERVICE: 04/14/2019. This 48-year-old gentleman was admitted with right foot wound, diabetic foot and possibly osteomyelitis. The patient is also on IV antibiotics. The cultures are still pending. No chest pain or palpitation. No fever. The blood sugars are better controlled at this time. The patient is rather noncompliant with insulin at home. PHYSICAL EXAMINATION: On exam, alert and oriented x3. Pulse is 85, blood pressure 137/86, respiration 16, temperature 98 degrees, pulse ox 97% on room air. HEENT: Conjunctivae normal. NECK: No jugular venous distention. CARDIOVASCULAR: S1, S2 muffled. RESPIRATORY: Breath sounds diminished in the bases. No rhonchi, no crackles. ABDOMEN: Soft, nontender. LEGS: Bilateral leg wounds, right more than the left and right foot osteomyelitis. LABS: WBC 9, hemoglobin 13.1. Glucose 112. ASSESSMENT: 1. Right foot diabetic wound ulcer with osteomyelitis and sepsis, present on admission. 2. Diabetes type 2, uncontrolled with hyperglycemia because of noncompliance. 3. Hyponatremia. 4. History of asthma. 5. History of coronary artery disease. 6. History of congestive heart failure with chronic systolic dysfunction, ejection fraction 20% previously. 7. Chronic obstructive pulmonary disease. 8. Gastroesophageal reflux disease. 9. Hypertension. 10.Hyperlipidemia. 11.Myocardial infarction. 12.History of pneumonia. 13.History of supraventricular tachycardia. 14.History of ischemic cardiomyopathy. 15.History of obstructive sleep apnea on CPAP. 16.History AICD. 17.History of back surgery, degenerative joint disease. 18.History of cardiac catheterization. 19.History of anxiety. 20.Continued ongoing nicotine dependence. RECOMMENDATIONS AND DISCUSSION: Recommend to continue current medications, continue symptomatic treatment. Otherwise continue with antibiotics. Closely follow with Infectious Disease, possible PICC line and IV antibiotics outpatient. Follow the cultures. Continue the rest of medications. Guarded prognosis. Further recommendations to follow. MMODL / IJN: [id number] /
[2019-04-14] MEDS ORDERED: LIDOCAINE 1% INJ 10MG/ML (20 ML MDV) SQ ONE (15:00)
--- NOTE | 2019-04-14 16:52 | IR ---
EXAMINATION TYPE: IR cvc insert >=5 years DATE OF EXAM: 04/14/2019 COMPARISON: NONE CLINICAL HISTORY: Infection Needs long-term intravenous access for antibiotics. PROCEDURE: After informed consent, the skin overlying the left brachial vein was localized with ultrasound and n oted to be compressible and patent. An ultrasound image was obtained and submitted on the patient's chart. The overlying skin was prepped and draped and Lidocaine was used for local anesthesia. A ski n shemar was made with a scalpel. Access was gained to the vein under ultrasound guidance with a 21 ga uge needle and a 0.018 inch wire was advanced. Access site was dilated with Peel-Away sheath and cat heter tailored to the appropriate length and advanced such that the distal tip is at the cavoatrial j unction. Spot image was obtained verifying placement. Catheter was fixed to the skin and a sterile dressing was placed following hemostasis. Catheter was aspirated and flushed with saline. Patient w as discharged in stable condition without complication. Maximal barrier technique is utilized. Ultra sound image is documented on the chart. Ultrasound used with sterile technique. Fluoro time and fluoroscopic images submitted to document procedure: 0.2 minutes fluoroscopy time, 15 0 intraoperative C-arm images document the procedure IMPRESSION: STATUS POST ULTRASOUND AND FLUOROSCOPIC GUIDED PICC LINE PLACEMENT, READY FOR USE. THIS PROCEDURE WAS PERFORMED BY THE UNDERSIGNED.
[2019-04-14 17:17] LABS: Glucose,Whole Blood 186 mg/dL (75-99)
[2019-04-14] MEDS: ATORVASTATIN 80 MG TAB PO SCH (20:44)
[2019-04-14] MEDS: MORPHINE SULFATE IR 15 MG TABLET PO PRN (20:45)
[2019-04-14 20:53] LABS: Glucose,Whole Blood 224 mg/dL (75-99)
--- NOTE | 2019-04-14 22:56 | P.PN ---
Subjective Progress Note Date: 04/14/19 This is a 48-year-old male seen by Dr. Mora for diabetic wound, bilateral feet. Patient states that he has had healing of the left foot ulcer and cast was placed last Saturday. Dressing change was done on the right foot last Saturday. On and Saturday, he started having chills. He changed the dressing on Saturday and the wound looked much worse to him with increase in size, swelling, edema. There was also drainage. He also complained of generalized fatigue and decreased appetite. Patient came into [facility] emergency center for evaluation. He has been afebrile, white count 10.2, creatinine 0.64, blood sugar initially 308, albumin 3.6. Wound culture and blood culture been obtained. Foot x-ray showed soft tissue infection without convincing evidence of acute osteomyelitis. Bone scan has been ordered. Patient is a diabetic and follows with Dr. Romero. He states he had a hemoglobin A1c done a couple weeks ago but does not recall the numbers. He thinks are his blood sugars have been better controlled. Our last hemoglobin A1c in 2018 was 14. Patient is unsure when his last tetanus shot was updated which will be done on this admission. Patient has a active smoker of a half pack per day for 30+ years. He has had this wound on the right foot for 4 months. He denies any recent injury. 04/14/2019 the patient is to have some improvement. Foot still has some drainage and it is still somewhat foul in odor. He is having no difficulties with antibiotic therapy. Blood sugars are improving. With his long-standing diabetes the foot is without pain due to his neuropathy. Objective - Vital Signs Vital signs: Vital Signs Temp 98.5 F 04/14/19 14:17 Pulse 73 04/14/19 14:17 Resp 16 04/14/19 16:00 BP 107/60 04/14/19 14:17 Pulse Ox 96 04/14/19 14:17 Intake & Output 04/14/19 04/14/19 04/15/19 06:59 18:59 06:59 Intake Total 1000 520 Balance 1000 520 Weight 103.3 kg Intake: Oral 1000 520 Other: # Voids 2 2 # Bowel Movements 0 - Exam Gen: This is a obese 48-year-old male. He is sitting on the edge of the bed and appears to be comfortable and in no acute distress. HEENT: Head is atraumatic, normocephalic. Pupils equal, round. Sclerae is anicteric. Oral mucous membranes are moist. No thrush noted. NECK: Supple. No JVD. No lymphadenopathy. No thyromegaly. LUNGS: Clear to auscultation. No wheezes or rhonchi. No intercostal retractions. HEART: Regular rate and rhythm. No murmur. ABDOMEN: Soft. Bowel sounds are present. No masses. No tenderness. EXTREMITIES: Cast in place to the left lower extremity from the knee to toes. The right foot dressing removed, the ulceration is easily noted and there some foul odor. There is grossly necrotic tissue which is easily removed. There is a large amount of necrotic material at the base. The area is nontender to manipulation NEUROLOGICAL: Patient is awake, alert and oriented x3. - Labs CBC & Chem 7: 04/14/19 07:31 04/14/19 07:31 Labs: Abnormal Lab Results - Last 24 Hours (Table) 04/14/19 04/14/19 04/14/19 Range/Units 07:30 07:31 07:31 Hct 38.2 L (39.0-53.0) % Chloride 109 H (98-107) mmol/L Glucose 108 H (74-99) mg/dL POC Glucose (mg/dL) 112 H (75-99) mg/dL 04/14/19 04/14/19 04/14/19 Range/Units 11:46 17:14 20:50 Hct (39.0-53.0) % Chloride (98-107) mmol/L Glucose (74-99) mg/dL POC Glucose (mg/dL) 166 H 186 H 224 H (75-99) mg/dL Microbiology - Last 24 Hours (Table) 04/12/19 15:16 Gram Stain - Final Foot - Right Wound Culture - Final 04/12/19 15:16 Blood Culture - Preliminary Blood No Growth after 48 hours Laboratory Results WBC 9.0 k/uL (3.8-10.6) 04/14/19 07:31 RBC 4.34 m/uL (4.30-5.90) 04/14/19 07:31 Hgb 13.1 gm/dL (13.0-17.5) 04/14/19 07:31 Hct 38.2 % (39.0-53.0) L 04/14/19 07:31 MCV 87.9 fL (80.0-100.0) 04/14/19 07:31 MCH 30.2 pg (25.0-35.0) 04/14/19 07:31 MCHC 34.3 g/dL (31.0-37.0) 04/14/19 07:31 RDW 13.6 % (11.5-15.5) 04/14/19 07:31 Plt Count 180 k/uL (150-450) 04/14/19 07:31 Neutrophils % 53 % 04/14/19 07:31 Lymphocytes % 31 % 04/14/19 07:31 Monocytes % 8 % 04/14/19 07:31 Eosinophils % 5 % 04/14/19 07:31 Basophils % 2 % 04/14/19 07:31 Neutrophils # 4.8 k/uL (1.3-7.7) 04/14/19 07:31 Lymphocytes # 2.7 k/uL (1.0-4.8) 04/14/19 07:31 Monocytes # 0.7 k/uL (0-1.0) 04/14/19 07:31 Eosinophils # 0.4 k/uL (0-0.7) 04/14/19 07:31 Basophils # 0.2 k/uL (0-0.2) 04/14/19 07:31 Sodium 141 mmol/L (137-145) 04/14/19 07:31 Potassium 3.8 mmol/L (3.5-5.1) 04/14/19 07:31 Chloride 109 mmol/L (98-107) H 04/14/19 07:31 Carbon Dioxide 24 mmol/L (22-30) 04/14/19 07:31 Anion Gap 8 mmol/L 04/14/19 07:31 BUN 14 mg/dL (9-20) 04/14/19 07:31 Creatinine 0.91 mg/dL (0.66-1.25) 04/14/19 07:31 Est GFR (CKD-EPI)AfAm >90 (>60 ml/min/1.73 sqM) 04/14/19 07:31 Est GFR (CKD-EPI)NonAf >90 (>60 ml/min/1.73 sqM) 04/14/19 07:31 Glucose 108 mg/dL (74-99) H 04/14/19 07:31 POC Glucose (mg/dL) 224 mg/dL (75-99) H 04/14/19 20:50 POC Glu [employer] Ann Marie Ray 04/14/19 20:[address] Glu mg/dL 243 04/13/19 07:59 Hemoglobin A1c 10.1 % (4.0-6.0) H 04/13/19 07:59 Calcium 8.5 mg/dL (8.4-10.2) 04/14/19 07:31 Total Bilirubin 0.4 mg/dL (0.2-1.3) 04/12/19 15:16 AST 26 U/L (17-59) 04/12/19 15:16 ALT 27 U/L (21-72) 04/12/19 15:16 Alkaline Phosphatase 105 U/L (38-126) 04/12/19 15:16 Total Protein 6.8 g/dL (6.3-8.2) 04/12/19 15:16 Albumin 3.6 g/dL (3.5-5.0) 04/12/19 15:16 Vancomycin Trough 18.9 ug/mL 04/13/19 18:59 Microbiology 04/12/19 15:16 Foot - Right Gram Stain - Final 04/12/19 15:16 Foot - Right Wound Culture - Final 04/12/19 15:16 Blood Blood Culture - Preliminary No Growth after 48 hours Assessment and Plan (1) Cellulitis of right foot Current Visit: Yes Status: Acute Code(s): L03.115 - CELLULITIS OF RIGHT LOWER LIMB SNOMED Code(s): 489481125 (2) Smoker Current Visit: Yes Status: Acute Code(s): F17.200 - NICOTINE DEPENDENCE, UNSPECIFIED, UNCOMPLICATED SNOMED Code(s): 96913096 (3) Osteomyelitis of foot, right, acute Narrative/Plan: 48-year-old male with a long-standing history of diabetes mellitus poorly controlled presents with worsening wound to the right foot which became quite malodorous enhance drainage, which resulted in him coming to the emergency center. He's had a total contact cast on the left leg. Arrangements were made for this to be removed. The left foot has no active ulceration at this time. As noted the right foot has the gangrenous change and will need surgical debridement. Antibiotic therapy is initiated with vancomycin and Zosyn while cultures are pending. Wound care was the silver alginate and offloading. Improved glucose control is extremely important that hopefully with smoking ce ssation we'll see some improvement. Await the surgical plan, this will help determine the course of antibiotic therapy at discharge. 04/14/2019 the patient is not feeling poorly. Blood sugars have improved. Tolerating antibiotic therapy well. Is still some necrotic material to the foot. The silver alginate dressing is applied and the foot is rewrapped. Diabetes care, smoking cessation elevation of the foot involvement stressed. The. IV access and outpatient intravenous antibiotic therapy are being arranged. At this time with the diabetes ertapenem 1 g IV piggyback daily would be the most reasonable pending further culture data. Current Visit: Yes Status: Acute Code(s): M86.171 - OTHER ACUTE OSTEOMYELIT IS, RIGHT ANKLE AND FOOT SNOMED Code(s): 5792628356919922
[2019-04-15] MEDS: MORPHINE SULFATE IR 15 MG TABLET PO PRN ×2 (02:53→09:59)
[2019-04-15] MEDS ORDERED: VANCOMYCIN TROUGH DUE 1 EACH MISC MISCELLANE ONE (03:00)
[2019-04-15 03:25] LABS: Basophils # (A) 0.1 k/uL (0-0.2); Basophils % (A) 1 %; Eosinophils # (A) 0.5 k/uL (0-0.7); Eosinophils % (A) 4 %; HCT 39.8 % (39.0-53.0); HGB 13.1 gm/dL (13.0-17.5); Lymphocytes # (A) 3.8 k/uL (1.0-4.8); Lymphocytes % (A) 35 %; MCH 28.4 pg (25.0-35.0); MCHC 32.9 g/dL (31.0-37.0); MCV 86.2 fL (80.0-100.0); Mean Platelet Volume 7.2; Monocytes # (A) 0.7 k/uL (0-1.0); Monocytes % (A) 6 %; Neutrophils # (A) 5.6 k/uL (1.3-7.7); Neutrophils % (A) 52 %; Platelet Count 309 k/uL (150-450); RBC 4.62 m/uL (4.30-5.90); RDW 12.4 % (11.5-15.5); WBC 10.9 k/uL (3.8-10.6)
[2019-04-15 03:36] LABS: African American GFR (CKD) >90 (>60 ml/min/1.73 sqM); Anion Gap 6 mmol/L; Blood Urea Nitrogen 12 mg/dL (9-20); Calcium 8.7 mg/dL (8.4-10.2); Carbon Dioxide 26 mmol/L (22-30); Chloride 107 mmol/L (98-107); Glucose 74 mg/dL (74-99); Potassium 3.9 mmol/L (3.5-5.1); Sodium 139 mmol/L (137-145)
[2019-04-15] MEDS: SODIUM CHLORIDE 0.9% 1,000 ML IV SCH ×2 (04:05→12:42)
[2019-04-15] MEDS: VANCOMYCIN 1,500 MG in SODIUM CHLORIDE 0.9% 250 ML IVPB SCH (04:29)
[2019-04-15] MEDS: IPRATROPIUM-ALBUTEROL 3 ML NEB INHALATION PRN (07:18)
[2019-04-15] MEDS: SYMBICORT 80-4.5 MCG INHALER INHALATION SCH (07:18)
[2019-04-15 07:24] LABS: Glucose,Whole Blood 96 mg/dL (75-99)
[2019-04-15] MEDS: INSULIN ASPART (NovoLOG) 100 UNIT/ML VIAL SQ SCH ×2 (07:31→12:41)
[2019-04-15] MEDS: NON FORMULARY DRUG (Omega-3 Acid Ethyl Esters [Lovaza] 1 GM) PO SCH (07:33)
[2019-04-15] MEDS: PIPERACILLIN-TAZOBACTAM 3.375 GM in SODIUM CHLORIDE 0.9% 100 ML IVPB SCH (07:35)
[2019-04-15] MEDS: HEPARIN SODIUM,PORCINE 5,000 UNIT/ML 1 ML VIAL SQ SCH (07:38)
[2019-04-15] MEDS: NICOTINE 14MG/24HR PATCH TRANSDERM SCH (07:38)
[2019-04-15] MEDS: ASPIRIN 81 MG PO SCH (07:39)
[2019-04-15] MEDS: FUROSEMIDE 20 MG TAB PO SCH (07:39)
[2019-04-15] MEDS: POTASSIUM CHLORIDE ER 10 MEQ TAB.ER.PRT PO SCH (07:39)
[2019-04-15] MEDS: PANTOPRAZOLE 40 MG TABLET PO SCH (07:39)
[2019-04-15] MEDS: MULTIVITAMINS, THERA 1 EACH TAB PO SCH (07:39)
[2019-04-15] MEDS: METOPROLOL SUCCINATE (ER) 25 MG TAB.ER.24H PO SCH (07:39)
[2019-04-15] MEDS: SACUBITRIL/VALSARTAN 24 MG-26 MG TABLET PO SCH (07:47)
[2019-04-15] MEDS: INSULIN DETEMIR (LEVEMIR) 100 UNIT/ML SYR SQ SCH (07:50)
[2019-04-15] MEDS ORDERED: ERTAPENEM 1 GM in SODIUM CHLORIDE 0.9% 50 ML IVPB STA (10:02)
--- NOTE | 2019-04-15 12:06 | P.DS ---
Providers Date of admission: 04/12/19 17:01 Expected date of discharge: 04/15/19 Attending physician: Elias Madrid MD Consults: 04/12/19 17:10 Consult Physician Stat Consulting Provider: Jordan Dallas Consult Reason/Comments: Diabetic wound Do you want consulting provider notified?: Yes 04/12/19 18:38 Consult Physician Routine Consulting Provider: Trae Mora Consult Reason/Comments: diabetic ulcer Do you want consulting provider notified?: Yes Primary care physician: [facility] Course: Final diagnosis Right foot diabetic wound ulcer with osteomyelitis and sepsis, present on admission Diabetes mellitus type 2, uncontrolled with hyperglycemia because of noncompliance Hyponatremia History of asthma History of coronary artery disease History of congestive heart failure with chronic systolic dysfunction, ejection fraction 20% previously Chronic obstructive pulmonary disease Gastroesophageal reflux disease Hypertension Hyperlipidemia Myocardial infarction history of pneumonia History of supraventricular tachycardia History of ischemic cardiomyopathy History of obstructive sleep apnea on CPAP History of AICD History of back surgery, degenerative joint disease History of cardiac catheterization History of anxiety Continued ongoing nicotine dependence Discharge disposition Patient is being discharged in a stable condition with guarded prognosis to home and will have home care for continued IV antibiotic therapy per infectious disease recommendations. A PICC line was placed. Antibiotics have been placed by infectious disease. Patient will continue with follow-up to the wound care center on Wednesdays as scheduled. Total time taken is 35 minutes. History of present illness This is a 48-year-old male who was admitted with a right foot wound, diabetic foot and possible osteomyelitis and is being monitored closely. Infectious disease was following. Patient is currently on IV antibiotics in the form of Invanz and will continue per infectious disease recommendations. Patient will continue to follow-up in the outpatient wound care center on Wednesdays. Bone scan that was done on 04/12/2019 shows osteomyelitis of the right foot. Discussed with the patient about keeping a diary of his blood sugars for better control and to bring the log to the primary care provider upon follow up. Currently patient's condition is stable with improvement and is stable for discharge time. Patient denies any chest pain, shortness of breath, or palpitations at this time. Patient is afebrile. Patient denies any nausea or vomiting and is tolerating diet. Guarded prognosis. On exam vital signs are stable. Temp is 97.8F, pulse is 84, respirations are 18, blood pressure is 110/68, oxygen saturation is 94% on room air. Cardio S1, S2 muffled. Respiratory system shows diminished breath sounds at the bases with no rhonchi or crackles noted. Abdomen is soft and nontender. Nervous system shows no focal deficits. Please refer to medication reconciliation sheet for a list of medications. Patient Condition at Discharge: Stable Plan - Discharge Summary New Discharge Prescriptions: New Ertapenem [INVanz] 1 gm IVPB Q24H #42 bag Continue Aspirin 81 mg PO DAILY Fluticasone/Salmeterol [Advair 100-50 Diskus] 1 puff INHALATION RT-BID Omeprazole [PriLOSEC] 20 mg PO DAILY Albuterol Sulfate [Proair Hfa] 2 puff INHALATION RT-Q6H PRN #1 hfa.aer.ad PRN Reason: Shortness Of Breath Sacubitril/Valsartan [Entresto 24 mg-26 mg Tablet] 1 tab PO BID Nicotine 14Mg/24Hr Patch [Habitrol] 1 patch TRANSDERM DAILY #30 patch Potassium Chloride ER [K-Dur 10] 10 meq PO BID [place]-3 Acid Ethyl Esters [Lovaza] 1 gm PO BID Morphine Sulfate Ir [MSIR] 30 mg PO QID PRN PRN Reason: Pain Ipratropium-Albuterol Nebulize [Duoneb 0.5 mg-3 mg/3 ml Soln] 3 ml INHALATION RT-TID PRN PRN Reason: Shortness Of Breath Atorvastatin [Lipitor] 80 mg PO HS Furosemide [Lasix] 60 mg PO BID Metoprolol Succinate (ER) [Toprol XL] 25 mg PO DAILY Insulin Detemir [Levemir Flextouch] 100 units SQ BID INSULIN ASPART (NovoLOG) [NovoLOG (formulary)] 35 - 40 unit SQ AC-TID dimenhyDRINATE [Dimenhydrinate] 50 mg PO DAILY PRN PRN Reason: Vertigo Discharge Medication List Aspirin 81 mg PO DAILY 10/21/15 [History] Fluticasone/Salmeterol [Advair 100-50 Diskus] 1 puff INHALATION RT-BID 03/28/18 [History] Omeprazole [PriLOSEC] 20 mg PO DAILY 03/28/18 [History] Albuterol Sulfate [Proair Hfa] 2 puff INHALATION RT-Q6H PRN #1 hfa.aer.ad 04/06/18 [Rx] Sacubitril/Valsartan [Entresto 24 mg-26 mg Tablet] 1 tab PO BID 05/03/18 [History] Nicotine 14Mg/24Hr Patch [Habitrol] 1 patch TRANSDERM DAILY #30 patch 05/06/18 [Rx] Atorvastatin [Lipitor] 80 mg PO HS 02/05/19 [History] Furosemide [Lasix] 60 mg PO BID 02/05/19 [History] Ipratropium-Albuterol Nebulize [Duoneb 0.5 mg-3 mg/3 ml Soln] 3 ml INHALATION RT-TID PRN 02/05/19 [History] Morphine Sulfate Ir [MSIR] 30 mg PO QID PRN 02/05/19 [History] [place]-3 Acid Ethyl Esters [Lovaza] 1 gm PO BID 02/05/19 [History] Potassium Chloride ER [K-Dur 10] 10 meq PO BID 02/05/19 [History] INSULIN ASPART (NovoLOG) [NovoLOG (formulary)] 35 - 40 unit SQ AC-TID 04/12/19 [History] Insulin Detemir [Levemir Flextouch] 100 units SQ BID 04/12/19 [History] Metoprolol Succinate (ER) [Toprol XL] 25 mg PO DAILY 04/12/19 [History] dimenhyDRINATE [Dimenhydrinate] 50 mg PO DAILY PRN 04/12/19 [History] Ertapenem [INVanz] 1 gm IVPB Q24H #42 bag 04/14/19 [Rx] Follow up Appointment(s)/Referral(s): Hany Rodríguez MD [Primary Care Provider] - 1-2 days [facility], [NON-STAFF] - 04/16/19 (Home Health Nurse will come teach you infusion therapy tomorrow on 04/16/19.) [facility], [REFERRING] - (IV antibiotics will be delivered tonight between 6-8 PM.) Ambulatory/Diagnostic Orders: Basic Metabolic Panel [LAB.AMB] Location: None Selected Complete Blood Count w/diff [LAB.AMB] Location: None Selected Miscellaneous Lab Order [LAB.AMB] Location: None Selected Activity/Diet/Wound Care/Special Instructions: Activity Limited until follow-up Continue current heart healthy/diabetic diet Continue to monitor blood sugars before meals and at bedtime and keep a diary for follow-up appointment with primary care provider Continue with IV antibiotic therapy Continue to follow-up in the wound care clinic as previously discussed Wound care instructions: Clinical the wound with normal saline and apply Aquacel silver, 4 x 4 gauze, and Kerlix on Wednesdays and Fridays Repeat labs in 2-3 days Discharge Disposition: HOME WITH HOME HEALTH SERVICES
[2019-04-15 12:14] LABS: Glucose,Whole Blood 184 mg/dL (75-99)
[2019-04-15 13:07] VITALS: BP 137/86; PULSE 94; RESP 16; TEMP 98.7
[2019-04-15] MEDS ORDERED: VANCOMYCIN 1,500 MG in SODIUM CHLORIDE 0.9% 250 ML IVPB SCH (14:00)
== END 2019-04-15 14:25 | disposition home health service (06) | DRG 872 ==
LOC: EC 14:41 → 4MS4W 17:01
PROVIDERS: ADMIT Internal Medicine; ATTEND Internal Medicine
PROC: 02HV33Z Insertion of Infusion Device into Superior Vena Cava, Percutaneous Approach (ICD-10-PCS; principal; 2019-04-14 15:05)
DX: A41.9 Sepsis, unspecified organism (principal); E11.52 Type 2 diabetes mellitus with diabetic peripheral angiopathy with gangrene; M86.171 Other acute osteomyelitis, right ankle and foot; E87.1 Hypo-osmolality and hyponatremia; I50.22 Chronic systolic (congestive) heart failure; L03.115 Cellulitis of right lower limb; E11.40 Type 2 diabetes mellitus with diabetic neuropathy, unspecified; E11.621 Type 2 diabetes mellitus with foot ulcer; E11.65 Type 2 diabetes mellitus with hyperglycemia; E11.69 Type 2 diabetes mellitus with other specified complication; Z79.4 Long term (current) use of insulin; E78.5 Hyperlipidemia, unspecified; F17.210 Nicotine dependence, cigarettes, uncomplicated; F90.9 Attention-deficit hyperactivity disorder, unspecified type; G47.33 Obstructive sleep apnea (adult) (pediatric); Z99.89 Dependence on other enabling machines and devices; I11.0 Hypertensive heart disease with heart failure; I25.2 Old myocardial infarction; I25.10 Atherosclerotic heart disease of native coronary artery without angina pectoris; I25.5 Ischemic cardiomyopathy; J44.9 Chronic obstructive pulmonary disease, unspecified; K21.9 Gastro-esophageal reflux disease without esophagitis; L97.519 Non-pressure chronic ulcer of other part of right foot with unspecified severity; L97.529 Non-pressure chronic ulcer of other part of left foot with unspecified severity; Z79.82 Long term (current) use of aspirin; Z79.899 Other long term (current) drug therapy; Z81.1 Family history of alcohol abuse and dependence; Z87.01 Personal history of pneumonia (recurrent); T38.3X6A Underdosing of insulin and oral hypoglycemic [antidiabetic] drugs, initial encounter; Z91.128 Patient's intentional underdosing of medication regimen for other reason; Z91.19 Patient's noncompliance with other medical treatment and regimen; Z95.810 Presence of automatic (implantable) cardiac defibrillator; Z98.1 Arthrodesis status
CPT/HCPCS: 36415; 36573; 78315; 80048; 80053; 80202; 83036; 85025; 87040; 87070; 87205; 90715; 94640; 96361; 96365; 99285

== ENCOUNTER 2019-11-28 12:21 | Emergency (ER) | payer BC, MEDICARE, OTHER ==
[2019-11-28] MEDS ORDERED: SODIUM CHLORIDE 0.9% 1,000 ML IV STA (13:15)
[2019-11-28] MEDS ORDERED: KETOROLAC 30 MG/ML 1 ML VIAL IVP STA (13:15)
[2019-11-28] MEDS ORDERED: ONDANSETRON 4 MG/2 ML VIAL IVP STA (13:15)
[2019-11-28] MEDS ORDERED: SODIUM CHLORIDE 0.9% 500 ML 500 ML IV STA (13:16)
--- NOTE | 2019-11-28 13:18 | ED ---
General Adult HPI - General Chief complaint: Abdominal Pain Stated complaint: Abd pain Time Seen by Provider: 11/28/19 12:52 Source: family, RN notes reviewed Mode of arrival: ambulatory Limitations: no limitations - History of Present Illness Initial comments: 49-year-old male with a complicated past medical history presents to the emergency department for acute right upper quadrant pain. Patient states this has been ongoing for 3 days. States he has been nauseous because of this. States he has been taking nausea pills to try to help and it does seem to help somewhat. Patient denies any chest pain or shortness of breath. Denies any pain radiating to his back. Denies any significant lower abdominal pain. States his bowel movements are normal for him. Denies diarrhea.Patient has no other complaints at this time including shortness of breath, chest pain, nausea, headache, or visual changes. - Related Data Home Medications Medication Instructions Recorded Confirmed Morphine Sulfate Ir [MSIR] 30 mg PO QID PRN 02/05/19 11/28/19 Potassium Chloride ER [K-Dur 10] 10 meq PO BID 02/05/19 11/28/19 Atorvastatin Calcium [Lipitor] 80 mg PO DAILY 11/28/19 11/28/19 DULoxetine HCL [Cymbalta] 60 mg PO BID 11/28/19 11/28/19 Furosemide [Lasix] 60 mg PO BID 11/28/19 11/28/19 Insulin Glargine,Hum.rec.anlog 100 unit SQ BID 11/28/19 11/28/19 [Basaglar Kwikpen U-100] Metoprolol Succinate [Toprol XL] 50 mg PO DAILY 11/28/19 11/28/19 Previous Rx's Medication Instructions Recorded Ondansetron [Zofran ODT] 4 mg PO Q8HR PRN #15 tab 11/28/19 Allergies Allergy/AdvReac Type Severity Reaction Status Date / Time azithromycin Allergy Anaphylaxis Verified 11/28/19 13:34 gemfibrozil [From Lopid] Allergy Rash/Hives Verified 11/28/19 13:34 Review of Systems ROS Statement: Those systems with pertinent positive or pertinent negative responses have been documented in the HPI. ROS Other: All systems not noted in ROS Statement are negative. Past Medical History Past Medical History: Asthma, Coronary Artery Disease (CAD), Chest Pain / Angina, Heart Failure, COPD, Diabetes Mellitus, GERD/Reflux, Hyperlipidemia, Hypertension, Myocardial Infarction ([place]), Pneumonia, Sleep Apnea/CPAP/BIPAP, Supraventricular Tachycardia (SVT) Additional Past Medical History / Comment(s): Ischemic cardiomyopathy, chronic CHF, SVT, IDDM type II, KAMINI with CPAP occasionally used, chronic cervical/back pain, DJD, diabetic foot wounds x 4 months. Last Myocardial Infarction Date:: 12/11/17 History of Any Multi-Drug Resistant Organisms: MRSA Date of last positivie culture/infection: 07/15/19 MDRO Source:: MRSA FOOT Past Surgical History: Adenoidectomy, AICD, Back Surgery, Cholecystectomy, EPS, Heart Catheterization, Pacemaker, Tonsillectomy Additional Past Surgical History / Comment(s): 12/10/17 cardiac cath, previous cardiac cath, 09/02/14 AICD/pacer, EGD/colonoscopy, low back surgery with fusion. Past Anesthesia/Blood Transfusion Reactions: Motion Sickness Additional Past Anesthesia/Blood Transfusion Reaction / Comment(s): Pt states he received blood with back surgery without reaction. Type of Cardiac Device: Permanent Pacemaker, AICD Device Placement Date:: 09-02-14 Past Psychological History: ADD/ADHD, Anxiety Smoking Status: Current every day smoker Past Alcohol Use History: Heavy Past Drug Use History: None Reported - Past Family History Father Additional Family Medical History / Comment(s): Pt has not kept in close contact with his father for many yrs. Father was an alcoholic and pt believes he has from cirrhosis of the liver. Mother History Unknown: Yes Additional Family Medical History / Comment(s): Pt is not in contact with his mother or his father who he has heard had . General Exam Limitations: no limitations General appearance: alert, in no apparent distress Head exam: Present: atraumatic, normocephalic, normal inspection Eye exam: Present: normal appearance, PERRL, EOMI. Absent: scleral icterus, conjunctival injection, periorbital swelling ENT exam: Present: normal exam, mucous membranes moist Neck exam: Present: normal inspection, full ROM. Absent: tenderness, meningismus, lymphadenopathy Respiratory exam: Present: normal lung sounds bilaterally. Absent: respiratory distress, wheezes, rales, rhonchi, stridor Cardiovascular Exam: Present: regular rate, normal rhythm, normal heart sounds. Absent: systolic murmur, diastolic murmur, rubs, gallop, clicks GI/Abdominal exam: Present: soft, tenderness (Patient does have right upper quadrant tenderness with a positive Green sign. No guarding or rebound. There is no lower abdominal tenderness. No epigastric or left upper quadrant tenderness.), normal bowel sounds. Absent: distended, guarding, rebound, rigid Course Vital Signs 11/28/19 11/28/19 11/28/19 12:46 13:48 15:15 Temperature 98.5 F 98.0 F Pulse Rate 114 H 88 59 L Respiratory 18 16 18 Rate Blood Pressure 132/90 109/69 O2 Sat by Pulse 97 97 99 Oximetry Medical Decision Making - Medical Decision Making HPI and physical exam is documented. Vitals are stable. CBC CMP unremarkable. Patient does have some mild hyperglycemia with a history of DM. Lipase only minimally elevated at 437. Denies drinking alcohol. Ultrasound of the gallbladder showed no dilated ducts. Borderline hepatomegaly. Patient was given Toradol had significant improvement in pain. At this time discussed clear liquid diet with patient following up with primary care. Discussed that he needs to repeat his lipase level by primary care to make sure it returns to normal. He will return for any worsening symptoms or fevers. - Lab Data Result diagrams: 11/28/19 13:59 11/28/19 13:59 Lab Results 11/28/19 11/28/19 11/28/19 Range/Units 13:59 13:59 13:59 WBC 12.6 H (3.8-10.6) k/uL RBC 5.74 (4.30-5.90) m/uL Hgb 16.9 (13.0-17.5) gm/dL Hct 51.0 (39.0-53.0) % MCV 88.8 (80.0-100.0) fL MCH 29.5 (25.0-35.0) pg MCHC 33.2 (31.0-37.0) g/dL RDW 12.3 (11.5-15.5) % Plt Count 231 (150-450) k/uL Neutrophils % 69 % Lymphocytes % 20 % Monocytes % 5 % Eosinophils % 3 % Basophils % 1 % Neutrophils # 8.8 H (1.3-7.7) k/uL Lymphocytes # 2.6 (1.0-4.8) k/uL Monocytes # 0.7 (0-1.0) k/uL Eosinophils # 0.4 (0-0.7) k/uL Basophils # 0.1 (0-0.2) k/uL Sodium 138 (137-145) mmol/L Potassium 4.7 (3.5-5.1) mmol/L Chloride 100 (98-107) mmol/L Carbon Dioxide 28 (22-30) mmol/L Anion Gap 10 mmol/L BUN 17 (9-20) mg/dL Creatinine 0.82 (0.66-1.25) mg/dL Est GFR (CKD-EPI)AfAm >90 (>60 ml/min/1.73 sqM) Est GFR (CKD-EPI)NonAf >90 (>60 ml/min/1.73 sqM) Glucose 252 H (74-99) mg/dL Plasma Lactic Acid Shane 1.9 (0.7-2.0) mmol/L Calcium 9.9 (8.4-10.2) mg/dL Total Bilirubin 0.4 (0.2-1.3) mg/dL AST 32 (17-59) U/L ALT 34 (4-49) U/L Alkaline Phosphatase 123 (38-126) U/L Total Protein 7.5 (6.3-8.2) g/dL Albumin 4.3 (3.5-5.0) g/dL Amylase 63 (30-110) U/L Lipase 437 H (23-300) U/L Urine Color Urine Appearance (Clear) Urine pH (5.0-8.0) Ur Specific [place] (1.001-1.035) Urine Protein (Negative) Urine Glucose (UA) (Negative) Urine Ketones (Negative) Urine Blood (Negative) Urine Nitrite (Negative) Urine Bilirubin (Negative) Urine Urobilinogen (<2.0) mg/dL Ur Leukocyte Esterase (Negative) Urine RBC (0-5) /hpf Urine WBC (0-5) /hpf Urine Mucus (None) /hpf 11/28/19 Range/Units 14:00 WBC (3.8-10.6) k/uL RBC (4.30-5.90) m/uL Hgb (13.0-17.5) gm/dL Hct (39.0-53.0) % MCV (80.0-100.0) fL MCH (25.0-35.0) pg MCHC (31.0-37.0) g/dL RDW (11.5-15.5) % Plt Count (150-450) k/uL Neutrophils % % Lymphocytes % % Monocytes % % Eosinophils % % Basophils % % Neutrophils # (1.3-7.7) k/uL Lymphocytes # (1.0-4.8) k/uL Monocytes # (0-1.0) k/uL Eosinophils # (0-0.7) k/uL Basophils # (0-0.2) k/uL Sodium (137-145) mmol/L Potassium (3.5-5.1) mmol/L Chloride (98-107) mmol/L Carbon Dioxide (22-30) mmol/L Anion Gap mmol/L BUN (9-20) mg/dL Creatinine (0.66-1.25) mg/dL Est GFR (CKD-EPI)AfAm (>60 ml/min/1.73 sqM) Est GFR (CKD-EPI)NonAf (>60 ml/min/1.73 sqM) Glucose (74-99) mg/dL Plasma Lactic Acid [place] (0.7-2.0) mmol/L Calcium (8.4-10.2) mg/dL Total Bilirubin (0.2-1.3) mg/dL AST (17-59) U/L ALT (4-49) U/L Alkaline Phosphatase (38-126) U/L Total Protein (6.3-8.2) g/dL Albumin (3.5-5.0) g/dL Amylase (30-110) U/L Lipase (23-300) U/L Urine Color Yellow Urine Appearance Clear (Clear) Urine pH 6.5 (5.0-8.0) Ur Specific [place] 1.024 (1.001-1.035) Urine Protein 1+ H (Negative) Urine Glucose (UA) 4+ H (Negative) Urine Ketones Negative (Negative) Urine Blood Negative (Negative) Urine Nitrite Negative (Negative) Urine Bilirubin Negative (Negative) Urine Urobilinogen <2.0 (<2.0) mg/dL Ur Leukocyte Esterase Negative (Negative) Urine RBC 1 (0-5) /hpf Urine WBC <1 (0-5) /hpf Urine Mucus Rare H (None) /hpf Disposition Clinical Impression: Abdominal pain, Elevated lipase Disposition: HOME SELF-CARE Condition: Good Instructions (If sedation given, give patient instructions): Clear Liquid Diet (ED), Abdominal Pain (ED) Additional Instructions: Please try a clear liquid diet. Take Zofran as needed for nausea. If you have worsening symptoms or fevers return to the emergency department. Prescriptions: Ondansetron [Zofran ODT] 4 mg PO Q8HR PRN #15 tab PRN Reason: Nausea Is patient prescribed a controlled substance at d/c from ED?: No Referrals: Hany Rodríguez MD [Primary Care Provider] - 1-2 days Time of Disposition: 14:52
--- NOTE | 2019-11-28 13:56 | XR ---
EXAMINATION TYPE: XR KUB , 2 VIEWS DATE OF EXAM ORDERED: 11/28/2019 HISTORY: abdominal pain. COMPARISON: Previous study dated 10/29/2016. FINDINGS: There is a unipolar pacemaker place within the heart. The lung bases are clear. Within the abdomen, the gallbladder is been removed. The abdominal gas pattern is unremarkable. There is no evidence of obstruction or free air. There is been a previous laminectomy at L4 and L5. No unu sual calcifications are seen. IMPRESSION: NO ACUTE INTRA-ABDOMINAL ABNORMALITY.
[2019-11-28 14:22] LABS: ALT 34 U/L (4-49); AST 32 U/L (17-59); African American GFR (CKD) >90 (>60 ml/min/1.73 sqM); Albumin 4.3 g/dL (3.5-5.0); Alkaline Phosphatase 123 U/L (38-126); Amylase 63 U/L (30-110); Anion Gap 10 mmol/L; Basophils # (A) 0.1 k/uL (0-0.2); Basophils % (A) 1 %; Blood Urea Nitrogen 17 mg/dL (9-20); Calcium 9.9 mg/dL (8.4-10.2); Carbon Dioxide 28 mmol/L (22-30); Chloride 100 mmol/L (98-107); Eosinophils # (A) 0.4 k/uL (0-0.7); Eosinophils % (A) 3 %; Glucose 252 mg/dL (74-99); HGB 16.9 gm/dL (13.0-17.5); Lymphocytes # (A) 2.6 k/uL (1.0-4.8); Lymphocytes % (A) 20 %; MCH 29.5 pg (25.0-35.0); MCHC 33.2 g/dL (31.0-37.0); MCV 88.8 fL (80.0-100.0); Mean Platelet Volume 8.4; Monocytes # (A) 0.7 k/uL (0-1.0); Monocytes % (A) 5 %; Neutrophils # (A) 8.8 k/uL (1.3-7.7); Neutrophils % (A) 69 %; Non-African American GFR(CKD) >90 (>60 ml/min/1.73 sqM); Platelet Count 231 k/uL (150-450); Potassium 4.7 mmol/L (3.5-5.1); RBC 5.74 m/uL (4.30-5.90); RDW 12.3 % (11.5-15.5); Sodium 138 mmol/L (137-145); Total Bilirubin 0.4 mg/dL (0.2-1.3); Total Protein 7.5 g/dL (6.3-8.2); WBC 12.6 k/uL (3.8-10.6)
--- NOTE | 2019-11-28 14:31 | US ---
EXAMINATION TYPE: US gallbladder DATE OF EXAM: 11/28/2019 COMPARISON: CLINICAL HISTORY: pain. GB removed. NPO. Generalized pain. EXAM MEASUREMENTS: Liver Length: 19.8 cm CBD: 0.5 cm Right Kidney: 11.1 x 5.2 x 5.6 cm Pancreas: Obscured by bowel gas Liver: Enlarged in size and heterogenous in appearance Gallbladder: Surgically absent Evidence for sonographic Green's sign: wnl CBD: wnl Right Kidney: No hydronephrosis or masses seen IMPRESSION: There is borderline hepatomegaly. No dilated ducts. No focal liver defect.
[2019-11-28 14:33] LABS: Appearance,Urine Clear (Clear); Bilirubin,Urine Negative (Negative); Color,Urine Yellow; Glucose,Urine (UA) 4+ (Negative); Ketones,Urine Negative (Negative); PH, Urine 6.5 (5.0-8.0); Protein,Urine 1+ (Negative); Specific Gravity,Urine 1.024 (1.001-1.035)
[2019-11-28 14:34] LABS: Blood,Urine Negative (Negative); Leukocyte Esterase,Urine Negative (Negative); Mucus,Urine Rare /hpf; Nitrite,Urine Negative (Negative); RBC,Urine 1 /hpf (0-5); Urobilinogen,Urine <2.0 mg/dL (<2.0); WBC,Urine <1 /hpf (0-5)
[2019-11-28 15:29] VITALS: BP 109/69; PULSE 59; RESP 18; TEMP 98
== END 2019-11-28 15:15 | disposition home or self-care (01) ==
LOC: EC 12:21
DX: R10.11 Right upper quadrant pain (principal); R11.0 Nausea; R74.8 Abnormal levels of other serum enzymes; E11.65 Type 2 diabetes mellitus with hyperglycemia; R10.811 Right upper quadrant abdominal tenderness; I25.119 Atherosclerotic heart disease of native coronary artery with unspecified angina pectoris; I11.0 Hypertensive heart disease with heart failure; I50.9 Heart failure, unspecified; I25.2 Old myocardial infarction; G47.33 Obstructive sleep apnea (adult) (pediatric); E78.5 Hyperlipidemia, unspecified; F41.9 Anxiety disorder, unspecified; I25.5 Ischemic cardiomyopathy; F17.200 Nicotine dependence, unspecified, uncomplicated; Z79.4 Long term (current) use of insulin; Z79.899 Other long term (current) drug therapy; Z88.1 Allergy status to other antibiotic agents; Z88.8 Allergy status to other drugs, medicaments and biological substances; Z90.49 Acquired absence of other specified parts of digestive tract; Z95.810 Presence of automatic (implantable) cardiac defibrillator; Z99.89 Dependence on other enabling machines and devices
CPT/HCPCS: 99284; 96374; 96375; 96361; 36415; 80053; 82150; 83605; 83690; 85025; 81001; 74018; 76705; J2405; J1885

== ENCOUNTER 2019-11-29 08:11 | Inpatient (IN) | payer BC, MEDICARE, OTHER ==
[2019-11-29] MEDS ORDERED: KETOROLAC 30 MG/ML 1 ML VIAL IVP STA (08:31)
[2019-11-29] MEDS ORDERED: HYDROmorphone 0.5 MG/0.5 ML SYRINGE IVP STA (08:31)
[2019-11-29] MEDS ORDERED: SODIUM CHLORIDE 0.9% 1,000 ML IV STA ×2 (08:31)
[2019-11-29] MEDS ORDERED: ONDANSETRON 4 MG/2 ML VIAL IVP STA (08:31)
--- NOTE | 2019-11-29 09:02 | ED ---
Abdominal Pain HPI - General Chief Complaint: Abdominal Pain Stated Complaint: Abd Pain Time Seen by Provider: 11/29/19 08:23 Source: patient, RN notes reviewed, old records reviewed Mode of arrival: ambulatory Limitations: no limitations - History of Present Illness Initial Comments: Patient is a 49-year-old male who presents response today for reevaluation with a complaint of upper abdominal pain radiation towards his back. He reports symptoms have been going on for the past 3 days. He is seen in the emergency department yesterday and diagnosed with elevated lipase. Patient states that he had persistent pain throughout the night. Patient states that he isn't nontender drinker. He denies any vomiting but does complain of nausea. He reports that he feels somewhat constipated last bowel movement was 4 days ago. Patient states that he's had no fevers or chills. - Related Data Home Medications Medication Instructions Recorded Confirmed Morphine Sulfate Ir [MSIR] 30 mg PO QID PRN 02/05/19 11/28/19 Potassium Chloride ER [K-Dur 10] 10 meq PO BID 02/05/19 11/28/19 Atorvastatin Calcium [Lipitor] 80 mg PO DAILY 11/28/19 11/28/19 DULoxetine HCL [Cymbalta] 60 mg PO BID 11/28/19 11/28/19 Furosemide [Lasix] 60 mg PO BID 11/28/19 11/28/19 Insulin Glargine,Hum.rec.anlog 100 unit SQ BID 11/28/19 11/28/19 [Basaglar Kwikpen U-100] Metoprolol Succinate [Toprol XL] 50 mg PO DAILY 11/28/19 11/28/19 Previous Rx's Medication Instructions Recorded Ondansetron [Zofran ODT] 4 mg PO Q8HR PRN #15 tab 11/28/19 Allergies Allergy/AdvReac Type Severity Reaction Status Date / Time azithromycin Allergy Anaphylaxis Verified 11/29/19 08:16 gemfibrozil [From Lopid] Allergy Rash/Hives Verified 11/29/19 08:16 Review of Systems ROS Statement: Those systems with pertinent positive or pertinent negative responses have been documented in the HPI. ROS Other: All systems not noted in ROS Statement are negative. Past Medical History Past Medical History: Asthma, Coronary Artery Disease (CAD), Chest Pain / Angina, Heart Failure, COPD, Diabetes Mellitus, GERD/Reflux, Hyperlipidemia, Hypertension, Myocardial Infarction ([place]), Pneumonia, Sleep Apnea/CPAP/BIPAP, Supraventricular Tachycardia (SVT) Additional Past Medical History / Comment(s): Ischemic cardiomyopathy, chronic CHF, SVT, IDDM type II, KAMINI with CPAP occasionally used, chronic cervical/back pain, DJD, diabetic foot wounds x 4 months. Last Myocardial Infarction Date:: 12/11/17 History of Any Multi-Drug Resistant Organisms: MRSA Date of last positivie culture/infection: 07/15/19 MDRO Source:: MRSA FOOT Past Surgical History: Adenoidectomy, AICD, Back Surgery, Cholecystectomy, EPS, Heart Catheterization, Pacemaker, Tonsillectomy Additional Past Surgical History / Comment(s): 12/10/17 cardiac cath, previous cardiac cath, 09/02/14 AICD/pacer, EGD/colonoscopy, low back surgery with fusion. Past Anesthesia/Blood Transfusion Reactions: Motion Sickness Additional Past Anesthesia/Blood Transfusion Reaction / Comment(s): Pt states he received blood with back surgery without reaction. Type of Cardiac Device: Permanent Pacemaker, AICD Device Placement Date:: 09-02-14 Past Psychological History: ADD/ADHD, Anxiety Smoking Status: Current every day smoker Past Alcohol Use History: Heavy Past Drug Use History: Marijuana - Past Family History Father Additional Family Medical History / Comment(s): Pt has not kept in close contact with his father for many yrs. Father was an alcoholic and pt believes he has from cirrhosis of the liver. Mother History Unknown: Yes Additional Family Medical History / Comment(s): Pt is not in contact with his mother or his father who he has heard had . General Exam - General Exam Comments Initial Comments: 49-year-old male. Alert and oriented. No distress. Limitations: no limitations General appearance: alert, in no apparent distress Head exam: Present: atraumatic, normocephalic, normal inspection Eye exam: Present: normal appearance, PERRL, EOMI. Absent: scleral icterus, conjunctival injection, periorbital swelling ENT exam: Present: normal exam Neck exam: Present: normal inspection. Absent: tenderness, meningismus, lymphadenopathy Respiratory exam: Present: normal lung sounds bilaterally. Absent: respiratory distress, wheezes, rales, rhonchi, stridor Cardiovascular Exam: Present: regular rate, normal rhythm, normal heart sounds. Absent: systolic murmur, diastolic murmur, rubs, gallop, clicks GI/Abdominal exam: Present: soft, tenderness (Left upper quadrant), normal bowel sounds. Absent: distended, guarding, rebound, rigid Extremities exam: Present: normal inspection, full ROM, normal capillary refill, other (Patient is to diabetic wounds over the bilateral feet over the distal fifth metatarsal.). Absent: tenderness, pedal edema, joint swelling, calf tenderness Back exam: Present: normal inspection Neurological exam: Present: alert, oriented X3, CN II-XII intact Psychiatric exam: Present: normal affect, normal mood Course Vital Signs 11/29/19 11/29/19 11/29/19 08:13 10:16 11:32 Temperature 97.7 F Pulse Rate 114 H 96 97 Respiratory 18 18 18 Rate Blood Pressure 160/108 115/69 123/76 O2 Sat by Pulse 100 97 98 Oximetry Medical Decision Making - Medical Decision Making 49-year-old male presents today for left upper quadrant abdominal pain, worsening over the past few days. He was seen in emergency department yesterday mildly elevated lipase. It is increased today to 570. Patient has no vomiting and emergency department. He is given a doses of pain medication and still un comfortable. He did have some leukocytosis is increased today as well. CT on pelvis was completed. Evidence of inflammatory changes around the pancreas. Patient was informed of all these results. I discussed the case with Dr. Renae. At this time limit the Patient for her persistent abdominal pain, pancreatitis. He denies alcohol use and has had a history of cholecystectomy. - Lab Data Result diagrams: 11/29/19 09:10 11/29/19 09:10 Lab Results 11/29/19 11/29/19 11/29/19 Range/Units 09:10 09:10 09:10 WBC 14.7 H (3.8-10.6) k/uL RBC 5.59 (4.30-5.90) m/uL Hgb 16.1 (13.0-17.5) gm/dL Hct 49.9 (39.0-53.0) % MCV 89.3 (80.0-100.0) fL MCH 28.8 (25.0-35.0) pg MCHC 32.3 (31.0-37.0) g/dL RDW 12.3 (11.5-15.5) % Plt Count 197 (150-450) k/uL Neutrophils % 72 % Lymphocytes % 18 % Monocytes % 6 % Eosinophils % 3 % Basophils % 1 % Neutrophils # 10.6 H (1.3-7.7) k/uL Lymphocytes # 2.6 (1.0-4.8) k/uL Monocytes # 0.8 (0-1.0) k/uL Eosinophils # 0.4 (0-0.7) k/uL Basophils # 0.1 (0-0.2) k/uL PT 9.8 (9.0-12.0) sec INR 0.9 (<1.2) APTT 24.1 (22.0-30.0) sec Sodium 134 L (137-145) mmol/L Potassium 4.6 (3.5-5.1) mmol/L Chloride 101 (98-107) mmol/L Carbon Dioxide 22 (22-30) mmol/L Anion Gap 11 mmol/L BUN 23 H (9-20) mg/dL Creatinine 0.93 (0.66-1.25) mg/dL Est GFR (CKD-EPI)AfAm >90 (>60 ml/min/1.73 sqM) Est GFR (CKD-EPI)NonAf >90 (>60 ml/min/1.73 sqM) Glucose 335 H (74-99) mg/dL Calcium 8.8 (8.4-10.2) mg/dL Total Bilirubin 0.6 (0.2-1.3) mg/dL AST 31 (17-59) U/L ALT 29 (4-49) U/L Alkaline Phosphatase 122 (38-126) U/L Total Protein 7.1 (6.3-8.2) g/dL Albumin 3.9 (3.5-5.0) g/dL Amylase 67 (30-110) U/L Lipase 560 H (23-300) U/L Urine Color Urine Appearance (Clear) Urine pH (5.0-8.0) Ur Specific [place] (1.001-1.035) Urine Protein (Negative) Urine Glucose (UA) (Negative) Urine Ketones (Negative) Urine Blood (Negative) Urine Nitrite (Negative) Urine Bilirubin (Negative) Urine Urobilinogen (<2.0) mg/dL Ur Leukocyte Esterase (Negative) 11/29/19 Range/Units 09:10 WBC (3.8-10.6) k/uL RBC (4.30-5.90) m/uL Hgb (13.0-17.5) gm/dL Hct (39.0-53.0) % MCV (80.0-100.0) fL MCH (25.0-35.0) pg MCHC (31.0-37.0) g/dL RDW (11.5-15.5) % Plt Count (150-450) k/uL Neutrophils % % Lymphocytes % % Monocytes % % Eosinophils % % Basophils % % Neutrophils # (1.3-7.7) k/uL Lymphocytes # (1.0-4.8) k/uL Monocytes # (0-1.0) k/uL Eosinophils # (0-0.7) k/uL Basophils # (0-0.2) k/uL PT (9.0-12.0) sec INR (<1.2) APTT (22.0-30.0) sec Sodium (137-145) mmol/L Potassium (3.5-5.1) mmol/L Chloride (98-107) mmol/L Carbon Dioxide (22-30) mmol/L Anion Gap mmol/L BUN (9-20) mg/dL Creatinine (0.66-1.25) mg/dL Est GFR (CKD-EPI)AfAm (>60 ml/min/1.73 sqM) Est GFR (CKD-EPI)NonAf (>60 ml/min/1.73 sqM) Glucose (74-99) mg/dL Calcium (8.4-10.2) mg/dL Total Bilirubin (0.2-1.3) mg/dL AST (17-59) U/L ALT (4-49) U/L Alkaline Phosphatase (38-126) U/L Total Protein (6.3-8.2) g/dL Albumin (3.5-5.0) g/dL Amylase (30-110) U/L Lipase (23-300) U/L Urine Color Light Yellow Urine Appearance Clear (Clear) Urine pH 6.5 (5.0-8.0) Ur Specific [place] 1.026 (1.001-1.035) Urine Protein Negative (Negative) Urine Glucose (UA) 4+ H (Negative) Urine Ketones Trace H (Negative) Urine Blood Negative (Negative) Urine Nitrite Negative (Negative) Urine Bilirubin Negative (Negative) Urine Urobilinogen <2.0 (<2.0) mg/dL Ur Leukocyte Esterase Negative (Negative) - Radiology Data Radiology results: report reviewed EKG performed at 929 shows sinus tachycardia, rightward axis. T-wave really consider ischemia. Ventricular rate of 10 5 bpm. 166 ms. QS duration 90 ms. QT QTc is 380/[address] shows findings consistent with acute pancreatitis. Correlating for pancreati c enzymes. Mild hepatomegaly. Mild cardiomegaly. Interval development of small adrenal mass. Her hiatal hernia. Scarring in both kidneys from old pyelonephritis. Collapse of the sigmoid colon makes difficult to access colonic wall thickening. Correlating to exclude colitis. Postsurgical changes and lumbar spine. Disposition Clinical Impression: Pancreatitis Disposition: ADMITTED IP TO THIS HOSP Condition: Stable Is patient prescribed a controlled substance at d/c from ED?: No Referrals: Hany Rodríguez MD [Primary Care Provider] - 1-2 days Time of Disposition: 12:04
[2019-11-29 09:30] LABS: ALT 29 U/L (4-49); AST 31 U/L (17-59); African American GFR (CKD) >90 (>60 ml/min/1.73 sqM); Albumin 3.9 g/dL (3.5-5.0); Alkaline Phosphatase 122 U/L (38-126); Amylase 67 U/L (30-110); Anion Gap 11 mmol/L; Blood Urea Nitrogen 23 mg/dL (9-20); Calcium 8.8 mg/dL (8.4-10.2); Carbon Dioxide 22 mmol/L (22-30); Chloride 101 mmol/L (98-107); Glucose 335 mg/dL (74-99); INR 0.9 (<1.2); Non-African American GFR(CKD) >90 (>60 ml/min/1.73 sqM); Partial Thromboplastin Time 24.1 sec (22.0-30.0); Prothrombin Time 9.8 sec (9.0-12.0); Sodium 134 mmol/L (137-145); Total Bilirubin 0.6 mg/dL (0.2-1.3); Total Protein 7.1 g/dL (6.3-8.2)
[2019-11-29 09:31] LABS: Basophils # (A) 0.1 k/uL (0-0.2); Basophils % (A) 1 %; Eosinophils # (A) 0.4 k/uL (0-0.7); Eosinophils % (A) 3 %; HCT 49.9 % (39.0-53.0); HGB 16.1 gm/dL (13.0-17.5); Lymphocytes # (A) 2.6 k/uL (1.0-4.8); Lymphocytes % (A) 18 %; MCH 28.8 pg (25.0-35.0); MCHC 32.3 g/dL (31.0-37.0); MCV 89.3 fL (80.0-100.0); Mean Platelet Volume 8.5; Monocytes # (A) 0.8 k/uL (0-1.0); Monocytes % (A) 6 %; Neutrophils # (A) 10.6 k/uL (1.3-7.7); Neutrophils % (A) 72 %; Platelet Count 197 k/uL (150-450); RBC 5.59 m/uL (4.30-5.90); RDW 12.3 % (11.5-15.5); WBC 14.7 k/uL (3.8-10.6)
[2019-11-29 09:34] LABS: Appearance,Urine Clear (Clear); Bilirubin,Urine Negative (Negative); Blood,Urine Negative (Negative); Color,Urine Light Yellow; Glucose,Urine (UA) 4+ (Negative); Ketones,Urine Trace (Negative); Leukocyte Esterase,Urine Negative (Negative); Nitrite,Urine Negative (Negative); PH, Urine 6.5 (5.0-8.0); Protein,Urine Negative (Negative); Specific Gravity,Urine 1.026 (1.001-1.035); Urobilinogen,Urine <2.0 mg/dL (<2.0)
[2019-11-29 09:40] LABS: Potassium 4.6 mmol/L (3.5-5.1)
--- NOTE | 2019-11-29 09:56 | XR ---
EXAMINATION TYPE: XR KUB , 2 VIEWS DATE OF EXAM ORDERED: 11/29/2019 HISTORY: abdominal pain. COMPARISON: Previous study dated earlier today. FINDINGS: Unipolar pacemaker remains in place. The lung bases are clear. Within the abdomen, the abdominal gas pattern is normal. There is no evidence of obstruction or free air. No unusual calcifications are seen. IMPRESSION: NO ACUTE INTRA-ABDOMINAL ABNORMALITY.
--- NOTE | 2019-11-29 11:26 | CT ---
EXAMINATION TYPE: CT abdomen pelvis w con DATE OF EXAM: 11/29/2019 REFERENCE: Previous study dated 01/18/2016. HISTORY: RUQ pain, fever HISTORY: RUQ Pain, Fever CT DLP: 1847.1 mGy Automated exposure control for dose reduction was used. TECHNIQUE: Helical acquisition through the abdomen and pelvis was obtained following the oral ingesti on of with Oral Contrast and following intravenous administration of 100 ml mL of Isovue 300. The marleni a was reformatted in axial, coronal and sagittal projections. FINDINGS: Visualized portions of the lungs are clear. There is no pleural or pericardial fluid the h eart is minimally enlarged. There is a bipolar pacemaker in place. There is a small sliding hiatal hernia. Within the abdomen, the liver is prominent measuring 20 cm. The gallbladder is been removed. The sple en is unremarkable. The right adrenal gland is normal. There is a small 1.5 cm low attenuating mass in the left adrenal g land. This represents a new finding in comparison with the previous study. There is evidence of scarring in both kidneys from previous pyelonephritis. Kidneys are otherwise unr emarkable. There is inflammatory change surrounding the head of the pancreas. No drainable fluid collection is s een. This is suspicious for pancreatitis. There is no significant retroperitoneal, iliac or inguinal adenopathy. The bladder is unremarkable. There is collapse of the sigmoid colon this makes it difficult to assess bowel wall thickness. The ap pendix is normal. Small bowel loops are normal. There is no free fluid and no free air. There is been a previous L4 and L5 laminectomy. There is degenerative change at the L4-5 level. IMPRESSION: 1. FINDINGS CONSISTENT WITH ACUTE PANCREATITIS. PLEASE CORRELATE WITH PANCREATIC ENZYMES. 2. MILD HEPATOMEGALY. 3. MILD CARDIOMEGALY. 4. INTERVAL DEVELOPMENT OF A SMALL, LOW ATTENUATING LEFT ADRENAL MASS. 5. 5. MALL SLIDING HIATAL HERNIA. 6. SCARRING IN BOTH KIDNEYS FROM OLD PYELONEPHRITIS. 7. COLLAPSE OF THE SIGMOID COLON MAKES IT DIFFICULT TO ASSESS COLONIC WALL THICKENING. PLEASE CORRELA TE CLINICALLY TO EXCLUDE COLITIS. 8. POSTSURGICAL CHANGES WITHIN THE LOWER LUMBAR SPINE.
[2019-11-29] MEDS ORDERED: MORPHINE SULFATE 4 MG/ML SYRINGE IV PRN (12:04)
[2019-11-29] MEDS ORDERED: ONDANSETRON 4 MG/2 ML VIAL IVP PRN (12:04)
[2019-11-29] MEDS ORDERED: NALOXONE 0.4 MG/ML 1 ML VIAL IV PRN (12:04)
[2019-11-29] MEDS ORDERED: ACETAMINOPHEN TAB 325 MG TAB PO PRN (12:04)
[2019-11-29] MEDS ORDERED: KETOROLAC 30 MG/ML 1 ML VIAL IVP PRN (12:04)
[2019-11-29] MEDS ORDERED: SODIUM CHLORIDE 0.9% 1,000 ML IV SCH (12:15)
[2019-11-29] MEDS: HYDROmorphone 0.5 MG/0.5 ML SYRINGE IVP PRN ×2 (14:58→20:35)
[2019-11-29 15:09] LABS: Glucose,Whole Blood 437 mg/dL (75-99)
[2019-11-29] MEDS ORDERED: MORPHINE SULFATE IR 15 MG TABLET PO PRN (15:58)
[2019-11-29] MEDS ORDERED: ONDANSETRON ODT 4 MG TAB PO PRN (15:58)
[2019-11-29] MEDS ORDERED: LACTATED RINGERS 1,000 ML IV SCH (16:00)
[2019-11-29] MEDS ORDERED: INSULIN REGULAR 100 UNIT/ML VIAL SQ ONE (16:01)
[2019-11-29] MEDS ORDERED: INSULIN ASPART (NovoLOG) 100 UNIT/ML VIAL SQ ONE (16:02)
--- NOTE | 2019-11-29 16:15 | P.HPIM ---
History of Present Illness H&P Date: 11/29/19 Chief Complaint: Abdominal pain History of presenting complaint: This is a pleasant 49-year-old patient of Dr. Hany Rodríguez. Extensive medical history to include coronary artery disease, CHF, COPD, diabetes, GERD, hypertension, hyperlipidemia,(s) sleep apnea with CPAP, AICD and a pacemaker. Patient lives with his 18-year-old son. Normally uses a cane to get about. Patient did drink heavily in the past and quit 20 years ago. Still an active smoker. Patient presents with increasing abdominal pain in the upper abdomen for progressive for 3 days. Significant nausea. No vomiting no fever no chills. Normally has a bowel movement most days. This time no bowel movements for 4 days. Was in the ER yesterday. Ultrasound abdomen showed borderline hepatomegaly. Some elevation of lipase. Computed tomography scan of the abdomen today did confirm presence of acute pancreatitis. Started on clear liquids I saw the patient in the ER and his abdominal pain was somewhat better compared to yesterday. Review of systems: GEN.: Tired EYES: None HEENT: None NECK: None RESPIRATORY: Some cough some wheezing and a baseline no sputum CARDIOVASCULAR: None GASTROINTESTINAL: As above GENITOURINARY: None MUSCULOSKELETAL: Joint pains LYMPHATICS: None HEMATOLOGICAL: None PSYCHIATRY: None NEUROLOGICAL: None Past medical history to include: COPD, coronary artery disease, CHF, diabetes, GERD, hyperlipidemia, hypertension,(s) sleep apnea uses CPAP sometimes, ischemic cardiomyopathy, chronic cervical back pain and DJD, diabetic foot wounds Social history: Illnesses 80-year-old son. Does use a cane. Disabled. 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 Been smoking 7085 a pack a day now down to half a pack a day. Heavy drinking in the past quit 20 years ago. Takes to 4 hits of marijuana nightly. Physical examination: VITAL SIGNS: 98.5, 114, 18, 132/90,97% on room air-upon presentation GENERAL: [BMI 35, sitting and at the edge of the bed, but tired. EYES: Pupils equal. Conjunctiva normal. HEENT: External appearance of nose and ears normal, oral cavity grossly normal. NECK: JVD not raised; masses not palpable. HEART: First and second heart sounds are normal; no edema. LUNGS: Respiratory rate increased, decreased breath sounds prolonged expiration some wheezing. ABDOMEN: Soft, upper abdomen tender, no guarding or rigidity, liver spleen not palpable, no masses palpable. PSYCH: Alert and oriented x3; mood and affect normal. NEUROLOGICAL: Cranial nerves grossly intact; no facial asymmetry, power and sensation grossly intact. LYMPHATICS: No lymph nodes palpable in the axilla and neck INVESTIGATIONS, reviewed in the clinical context: White count 40.7 hemoglobin 16.1 percussion 4.6 creatinine 0.93 glucose 335 Amylase 67 lipase 560 Computed tomography scan of the abdomen shows evidence of pancreatic inflammation Abdominal ultrasound shows mild hepatomegaly EKG tracing personally reviewed by me-nonspecific T-wave changes 2-D echocardiogram from 2018 shows EF of less than 20% Assessment: -Acute pancreatitis in a patient with a prior history of alcoholism -Coronary artery disease -Acute COPD exacerbation in a current smoker -Diabetes mellitus type 2 chronically on insulin, uncontrolled with hyperglycemia -GERD -Hyperlipidemia -Essential hypertension -Obstructive sleep apnea sometimes uses CPAP machine -DJD -Chronic debridement dependence patient cigarette smoker Plan: Patient being put on clear liquid diets. Comfortable consistent. We will gently hydrate the patient. Home medications resumed. Home dose of insulin. Resume. Nebulized bronchodilators, inhaled steroids. Nicotine patch. Lovenox for DVT prophylaxis. Give 1 dose of 30 units of Humalog and 20 units of regular. Long-acting insulin will be started tonight. Care was discussed with the patient questions were answered. -AICD -Chronic congestive heart failure from systolic dysfunction EF less than 20% Past Medical History Past Medical History: Asthma, Coronary Artery Disease (CAD), Chest Pain / Angina, Heart Failure, COPD, Diabetes Mellitus, GERD/Reflux, Hyperlipidemia, Hypertension, Myocardial Infarction (MO), Pneumonia, Sleep Apnea/CPAP/BIPAP, Supraventricular Tachycardia (SVT) Additional Past Medical History / Comment(s): Ischemic cardiomyopathy, chronic C HF, SVT, IDDM type II, KAMINI with CPAP occasionally used, chronic cervical/back pain, DJD, diabetic foot wounds x 4 months. Last Myocardial Infarction Date:: 12/11/17 History of Any Multi-Drug Resistant Organisms: MRSA Date of last positivie culture/infection: 07/15/19 MDRO Source:: MRSA FOOT Past Surgical History: Adenoidectomy, AICD, Back Surgery, Cholecystectomy, EPS, Heart Catheterization, Pacemaker, Tonsillectomy Additional Past Surgical History / Comment(s): 12/10/17 cardiac cath, previous cardiac cath, 2/5/15 AICD/pacer, EGD/colonoscopy, low back surgery with fusion. Past Anesthesia/Blood Transfusion Reactions: Motion Sickness Additional Past Anesthesia/Blood Transfusion Reaction / Comment(s): Pt states he received blood with back surgery without reaction. Type of Cardiac Device: Permanent Pacemaker, AICD Device Placement Date:: 09-02-14 Past Psychological History: ADD/ADHD, Anxiety Additional Psychological History / Comment(s): Pt lives with 18 yr-old son. There are cats in the home. Pt is very independent. He uses a cane prn. He drives. Pt states he has ADHD. Pt is disabled. He has a glucometer and nebulizer. The patient worked in the past building [employer] and [employer]. Smoking Status: Current every day smoker Past Alcohol Use History: Heavy Additional Past Alcohol Use History / Comment(s): Pt started smoking in 1984 and was a 1 ppd smoker. Currently smokig 1/2 pack daily. Pt states he was a heavy drinker in the past but quit drinking 20 yrs ago. Past Drug Use History: Marijuana Additional Drug Use History / Comment(s): Pt states he takes 2-4 "hits" off marijuana joint nightly. - Past Family History Father Additional Family Medical History / Comment(s): Pt has not kept in close contact with his father for many yrs. Father was an alcoholic and pt believes he has from cirrhosis of the liver. Mother History Unknown: Yes Additional Family Medical History / Comment(s): Pt is not in contact with his mother or his father who he has heard had . Medications and Allergies Home Medications Medication Instructions Recorded Confirmed Type Morphine Sulfate Ir [MSIR] 30 mg PO QID PRN 02/05/19 11/28/19 History Potassium Chloride ER [K-Dur 10] 10 meq PO BID 02/05/19 11/28/19 History Atorvastatin Calcium [Lipitor] 80 mg PO DAILY 11/28/19 11/28/19 History DULoxetine HCL [Cymbalta] 60 mg PO BID 11/28/19 11/28/19 History Furosemide [Lasix] 60 mg PO BID 11/28/19 11/28/19 History Insulin Glargine,Hum.rec.anlog 100 unit SQ BID 11/28/19 11/28/19 History [Basaglar Haiderikpen U-100] Metoprolol Succinate [Toprol XL] 50 mg PO DAILY 11/28/19 11/28/19 History Ondansetron [Zofran ODT] 4 mg PO Q8HR PRN #15 tab 11/28/19 Rx Allergies Allergy/AdvReac Type Severity Reaction Status Date / Time azithromycin Allergy Anaphylaxis Verified 11/29/19 08:16 gemfibrozil [From Lopid] Allergy Rash/Hives Verified 11/29/19 08:16 Physical Exam Vitals: Vital Signs Temp Pulse Pulse Resp BP BP Pulse Ox 11/29/19 15:52 18 11/29/19 15:51 18 97 11/29/19 15:00 97.8 F 96 18 128/87 95 11/29/19 14:06 98.0 F 98 18 141/97 99 11/29/19 11:32 97 18 123/76 98 11/29/19 10:16 96 18 115/69 97 11/29/19 08:13 97.7 F 114 H 18 160/108 100 Intake and Output 11/29/19 11/29/19 11/29/19 06:59 14:59 22:59 Other: Weight 104.326 kg Results CBC & Chem 7: 11/29/19 09:10 11/29/19 09:10 Labs: Abnormal Lab Results - Last 24 Hours (Table) 11/29/19 11/29/19 11/29/19 Range/Units 09:10 09:10 09:10 WBC 14.7 H (3.8-10.6) k/uL Neutrophils # 10.6 H (1.3-7.7) k/uL Sodium 134 L (137-145) mmol/L BUN 23 H (9-20) mg/dL Glucose 335 H (74-99) mg/dL POC Glucose (mg/dL) (75-99) mg/dL Lipase 560 H (23-300) U/L Urine Glucose (UA) 4+ H (Negative) Urine Ketones Trace H (Negative) 11/29/19 Range/Units 15:07 WBC (3.8-10.6) k/uL Neutrophils # (1.3-7.7) k/uL Sodium (137-145) mmol/L BUN (9-20) mg/dL Glucose (74-99) mg/dL POC Glucose (mg/dL) 437 H (75-99) mg/dL Lipase (23-300) U/L Urine Glucose (UA) (Negative) Urine Ketones (Negative) Thrombosis Risk Factor Assmnt - Choose All That Apply Any of the Below Risk Factors Present?: Yes Each Factor Represents 1 point: Obesity (BMI >25) Each Risk Factor Represents 3 Points: History of DVT/PE Thrombosis Risk Factor Assessment Total Risk Factor Score: 4 Thrombosis Risk Factor Assessment Level: Moderate Risk
[2019-11-29] MEDS: ENOXAPARIN 40 MG/0.4 ML SYRINGE SQ SCH (16:27)
[2019-11-29] MEDS: LACTATED RINGERS 1,000 ML IV SCH (19:13)
[2019-11-29] MEDS: INSULIN ASPART (NovoLOG) 100 UNIT/ML VIAL SQ SCH ×2 (19:13→20:19)
[2019-11-29 20:19] LABS: Glucose,Whole Blood 98 mg/dL (75-99)
[2019-11-29] MEDS: INSULIN DETEMIR (LEVEMIR) 100 UNIT/ML SYR SQ SCH (20:22)
[2019-11-29] MEDS: FUROSEMIDE 20 MG TAB PO SCH (20:25)
[2019-11-29] MEDS: DULoxetine HCL 60 MG CAPSULE.DR PO SCH (20:25)
[2019-11-29] MEDS: POTASSIUM CHLORIDE ER 10 MEQ TAB.ER.PRT PO SCH (20:25)
[2019-11-29] MEDS: BUDESONIDE 1 MG/2 ML NEBU INHALATION SCH (20:29)
[2019-11-29] MEDS: IPRATROPIUM-ALBUTEROL 3 ML NEB INHALATION SCH ×2 (20:29)
[2019-11-29 21:22] LABS: Glucose,Whole Blood 134 mg/dL (75-99)
[2019-11-30 06:40] LABS: Glucose,Whole Blood 207 mg/dL (75-99)
[2019-11-30] MEDS: INSULIN ASPART (NovoLOG) 100 UNIT/ML VIAL SQ SCH ×4 (07:30→21:10)
[2019-11-30] MEDS: HYDROmorphone 0.5 MG/0.5 ML SYRINGE IVP PRN ×5 (07:38→21:16)
[2019-11-30] MEDS: BUDESONIDE 1 MG/2 ML NEBU INHALATION SCH ×2 (08:37→20:17)
[2019-11-30] MEDS: IPRATROPIUM-ALBUTEROL 3 ML NEB INHALATION SCH ×5 (08:38→20:17)
[2019-11-30] MEDS: METOPROLOL SUCCINATE (ER) 50 MG TAB.ER.24H PO SCH (08:51)
[2019-11-30] MEDS: POTASSIUM CHLORIDE ER 10 MEQ TAB.ER.PRT PO SCH ×2 (08:51→21:09)
[2019-11-30] MEDS: ENOXAPARIN 40 MG/0.4 ML SYRINGE SQ SCH (08:51)
[2019-11-30] MEDS: PANTOPRAZOLE 40 MG/10 ML VIAL IV SCH (08:51)
[2019-11-30] MEDS: ATORVASTATIN 80 MG TAB PO SCH (08:51)
[2019-11-30] MEDS: INSULIN DETEMIR (LEVEMIR) 100 UNIT/ML SYR SQ SCH ×2 (08:51→21:10)
[2019-11-30] MEDS: FUROSEMIDE 20 MG TAB PO SCH ×2 (08:51→21:09)
[2019-11-30] MEDS: DULoxetine HCL 60 MG CAPSULE.DR PO SCH ×2 (08:51→21:09)
[2019-11-30 11:39] LABS: Glucose,Whole Blood 350 mg/dL (75-99)
[2019-11-30] MEDS: LACTATED RINGERS 1,000 ML IV SCH (15:33)
[2019-11-30 16:33] LABS: Glucose,Whole Blood 277 mg/dL (75-99)
--- NOTE | 2019-11-30 20:24 | P.PN ---
Progress Note - Text Progress Note Date: 11/30/19 Chief Complaint: Abdominal pain History of presenting complaint: This is a pleasant 49-year-old patient of Dr. Hany Rodríguez. Extensive medical history to include coronary artery disease, CHF, COPD, diabetes, GERD, hypertension, hyperlipidemia,(s) sleep apnea with CPAP, AICD and a pacemaker. Patient lives with his 18-year-old son. Normally uses a cane to get about. Patient did drink heavily in the past and quit 20 years ago. Still an active smoker. Patient presents with increasing abdominal pain in the upper abdomen for progressive for 3 days. Significant nausea. No vomiting no fever no chills. Normally has a bowel movement most days. This time no bowel movements for 4 days. Was in the ER yesterday. Ultrasound abdomen showed borderline hepatomegaly. Some elevation of lipase. Computed tomography scan of the abdomen today did confirm presence of acute pancreatitis. Started on clear liquids I saw the patient in the ER and his abdominal pain was somewhat better compared to yesterday. Admitted with acute pancreatitis with a prior history of alcoholism. Started on IV fluids pain control Today-feeling a bit better. Abdominal pain is gone down. No nausea vomiting. Tolerated clear liquids Review of systems: Was done for constitutional, cardiovascular, GI, pulmonary. relevant finding as above Active Medications Acetaminophen (Tylenol Tab) 650 mg PO Q6HR PRN PRN Reason: Mild Pain or Fever > 100.5 Albuterol/Ipratropium (Duoneb 0.5 Mg-3 Mg/3 Ml Soln) 3 ml INHALATION RT-QID [facility] Last Admin: 11/30/19 20:17 Dose: 3 ml Documented by: Atorvastatin Calcium (Lipitor) 80 mg PO DAILY [facility] Last Admin: 11/30/19 08:51 Dose: 80 mg Documented by: Budesonide (Pulmicort) 1 mg INHALATION RT-BID [facility] Last Admin: 11/30/19 20:17 Dose: 1 mg Documented by: Duloxetine HCl (Cymbalta) 60 mg PO BID [facility] Last Admin: 11/30/19 08:51 Dose: 60 mg Documented by: Enoxaparin Sodium (Lovenox) 40 mg SQ DAILY [facility] Last Admin: 11/30/19 08:51 Dose: 40 mg Documented by: Furosemide (Lasix) 60 mg PO BID [facility] Last Admin: 11/30/19 08:51 Dose: 60 mg Documented by: Hydromorphone HCl (Dilaudid) 0.5 mg IVP Q3HR PRN PRN Reason: Moderate Pain Last Admin: 11/30/19 18:17 Dose: 0.5 mg Documented by: Lactated Ringer's (Lactated Ringers) 1,000 mls @ 50 mls/hr IV .Q20H [facility] Last Admin: 11/30/19 15:33 Dose: Not Given Documented by: Insulin Aspart (Novolog) 0 unit SQ ACHS [facility]; Protocol Last Admin: 11/30/19 17:27 Dose: 4 unit Documented by: Insulin Detemir (Levemir) 80 unit SQ BID [facility] Last Admin: 11/30/19 08:51 Dose: Not Given Documented by: Ketorolac Tromethamine (Toradol) 30 mg IVP Q6HR PRN PRN Reason: Moderate Pain Stop: 12/04/19 12:05 Last Admin: 11/29/19 16:27 Dose: 30 mg Documented by: Metoprolol Succinate (Toprol Xl) 50 mg PO DAILY [facility] Last Admin: 11/30/19 08:51 Dose: 50 mg Documented by: Morphine Sulfate (Morphine Sulfate (Inj)) 4 mg IV Q4HR PRN PRN Reason: Severe Pain Morphine Sulfate (Msir) 30 mg PO QID PRN PRN Reason: Pain Naloxone HCl (Narcan) 0.2 mg IV Q2M PRN PRN Reason: Opioid Reversal Ondansetron HCl (Zofran) 4 mg IVP Q8HR PRN PRN Reason: Nausea And Vomiting Ondansetron HCl (Zofran Odt) 4 mg PO Q8HR PRN PRN Reason: Nausea Pantoprazole Sodium (Protonix) 40 mg IV DAILY [facility] Last Admin: 11/30/19 08:51 Dose: 40 mg Documented by: Potassium Chloride (K-Dur 10) 10 meq PO BID [facility] Last Admin: 11/30/19 08:51 Dose: 10 meq Documented by: Physical examination: VITAL SIGNS: 98.1, 92, 18, 141/92, 98% on room air GENERAL: Sitting up, looking more comfortable EYES: Pupils equal. Conjunctiva normal. HEENT: External appearance of nose and ears normal, oral cavity grossly normal. NECK: JVD not raised; masses not palpable. HEART: First and second heart sounds are normal; no edema. LUNGS: Respiratory rate increased, decreased breath sounds prolonged expiration some wheezing. ABDOMEN: Soft, decreased abdomen tender, no guarding or rigidity, liver spleen not palpable, no masses palpable. PSYCH: Alert and oriented x3; mood and affect normal. INVESTIGATIONS, reviewed in the clinical context: Accu-Cheks 207, 350, 277 Previous testing White count 14.7 hemoglobin 16.1 percussion 4.6 creatinine 0.93 glucose 335 Amylase 67 lipase 560 Computed tomography scan of the abdomen shows evidence of pancreatic inflammation Abdominal ultrasound shows mild hepatomegaly EKG tracing personally reviewed by me-nonspecific T-wave changes 2-D echocardiogram from 2018 shows EF of less than 20% Assessment: -Acute pancreatitis in a patient with a prior history of alcoholism, slowly improving -Coronary artery disease -Acute COPD exacerbation in a current smoker -Diabetes mellitus type 2 chronically on insulin, uncontrolled with hyperglycemia -GERD -Hyperlipidemia -Essential hypertension -Obstructive sleep apnea sometimes uses CPAP machine -DJD -Chronic debridement dependence patient cigarette smoker -AICD -Chronic congestive heart failure from systolic dysfunction EF less than 20% Plan: Care was discussed with the patient. That'll be addressed to full liquids later today. DC IV fluids later today. Discussed the patient. Encouraged ambulation.
[2019-11-30 20:59] LABS: Glucose,Whole Blood 330 mg/dL (75-99)
[2019-12-01] MEDS: HYDROmorphone 0.5 MG/0.5 ML SYRINGE IVP PRN ×2 (01:04→07:49)
[2019-12-01 06:37] LABS: HCT 44.3 % (39.0-53.0); HGB 14.6 gm/dL (13.0-17.5); MCH 29.2 pg (25.0-35.0); MCHC 32.9 g/dL (31.0-37.0); MCV 88.7 fL (80.0-100.0); Mean Platelet Volume 8.6; Platelet Count 230 k/uL (150-450); RBC 4.99 m/uL (4.30-5.90); RDW 12.4 % (11.5-15.5); WBC 9.5 k/uL (3.8-10.6)
[2019-12-01 06:46] LABS: African American GFR (CKD) >90 (>60 ml/min/1.73 sqM); Anion Gap 4 mmol/L; Blood Urea Nitrogen 8 mg/dL (9-20); Calcium 9.1 mg/dL (8.4-10.2); Carbon Dioxide 29 mmol/L (22-30); Chloride 102 mmol/L (98-107); Glucose 199 mg/dL (74-99); Non-African American GFR(CKD) >90 (>60 ml/min/1.73 sqM); Potassium 4.1 mmol/L (3.5-5.1); Sodium 135 mmol/L (137-145)
[2019-12-01 07:08] LABS: Glucose,Whole Blood 182 mg/dL (75-99)
[2019-12-01] MEDS: BUDESONIDE 1 MG/2 ML NEBU INHALATION SCH (07:23)
[2019-12-01] MEDS: IPRATROPIUM-ALBUTEROL 3 ML NEB INHALATION SCH ×2 (07:23→11:52)
[2019-12-01 07:39] VITALS: BP 121/73; RESP 17; TEMP 99
[2019-12-01] MEDS: ENOXAPARIN 40 MG/0.4 ML SYRINGE SQ SCH (07:49)
[2019-12-01] MEDS: FUROSEMIDE 20 MG TAB PO SCH (07:50)
[2019-12-01] MEDS: ATORVASTATIN 80 MG TAB PO SCH (07:50)
[2019-12-01] MEDS: DULoxetine HCL 60 MG CAPSULE.DR PO SCH (07:50)
[2019-12-01] MEDS: INSULIN DETEMIR (LEVEMIR) 100 UNIT/ML SYR SQ SCH (07:50)
[2019-12-01] MEDS: INSULIN ASPART (NovoLOG) 100 UNIT/ML VIAL SQ SCH ×2 (07:51→12:09)
[2019-12-01] MEDS: POTASSIUM CHLORIDE ER 10 MEQ TAB.ER.PRT PO SCH (08:00)
[2019-12-01] MEDS: METOPROLOL SUCCINATE (ER) 50 MG TAB.ER.24H PO SCH (08:00)
[2019-12-01] MEDS: PANTOPRAZOLE 40 MG/10 ML VIAL IV SCH (08:00)
[2019-12-01 11:26] LABS: Glucose,Whole Blood 329 mg/dL (75-99)
[2019-12-01 12:02] VITALS: PULSE 100
--- NOTE | 2019-12-01 12:17 | CDI ---
Documentation Clarification Form Admit Date: 11/29/2019 01:05:00 PM Patient Name: Ezequiel Haynes Visit Number: [id number] Date: 12/01/2019 12:10:49 PM From: Pat Marley RN, CCDS ATTENTION: The Clinical Documentation Specialists (CDI) and [facility] Coding Staff appreciate your assistance in clarifying documentation. Please respond to the clarification below the line at the bottom and electronically sign. The CDI & [facility] Coding staff will review the response and follow-up if needed. Please note: Queries are made part of the Legal Health Record. If you have any questions, please contact the author of this message via ITS. Dr. Buck Johnson All patients receiving screening for Coronavirus must have results documented in medical record by MD. Patient history/risk factors: CAD, COPD, Smoker, KAMINI, HTN Clinical Indicators 11/28 Labs: WBC 14.7, neutrophils 10.6 11/28 Coronavirus (PCR) Not detected 11/28 0813 Vital Signs: Temp 97.7, HR 114, RR 18, B/P 160/108, spo2 100% RA Treatment: 11/28 1L 0.9% NS IVF Bolus In order to capture the severity of condition, please clarify if the above treatment/clinical indicators signify: COVID-19 ruled out Other, please specify (Last Form Revision: September 2019) COVID-19 ruled out MTDD
--- NOTE | 2019-12-01 22:11 | P.DS ---
Providers Date of admission: 11/29/19 13:05 Expected date of discharge: 12/01/19 Attending physician: Buck Johnson Primary care physician: [facility] Course: Chief Complaint: Abdominal pain History of presenting complaint: This is a pleasant 49-year-old patient of Dr. Hany Rodríguez. Extensive medical history to include coronary artery disease, CHF, COPD, diabetes, GERD, hypertension, hyperlipidemia,(s) sleep apnea with CPAP, AICD and a pacemaker. Patient lives with his 18-year-old son. Normally uses a cane to get about. Patient did drink heavily in the past and quit 20 years ago. Still an active smoker. Patient presents with increasing abdominal pain in the upper abdomen for progressive for 3 days. Significant nausea. No vomiting no fever no chills. Normally has a bowel movement most days. This time no bowel movements for 4 days. Was in the ER yesterday. Ultrasound abdomen showed borderline hepatomegaly. Some elevation of lipase. Computed tomography scan of the abdomen today did confirm presence of acute pancreatitis. Started on clear liquids I saw the patient in the ER and his abdominal pain was somewhat better compared to yesterday. Admitted with acute pancreatitis with a prior history of alcoholism. Started on IV fluids pain control Today-feeling much better. Symptoms greatly improved. Tolerating full liquids. Very keen to go home. Diet discussed at length with the patient. Questions answered Physical examination: VITAL SIGNS: 99, 96, 17, 121/73, 97% on room air GENERAL: Sitting up, comfortable EYES: Pupils equal. Conjunctiva normal. HEENT: External appearance of nose and ears normal, oral cavity grossly normal. NECK: JVD not raised; masses not palpable. HEART: First and second heart sounds are normal; no edema. LUNGS: Respiratory rate increased, decreased breath sounds prolonged expiration some wheezing. ABDOMEN: Soft, no tenderness, no guarding or rigidity, liver spleen not palpable, no masses palpable. PSYCH: Alert and oriented x3; mood and affect normal. INVESTIGATIONS, reviewed in the clinical context: Hemoglobin 14.6 potassium 4.1 creatinine 0.75 Previous testing White count 14.7 hemoglobin 16.1 percussion 4.6 creatinine 0.93 glucose 335 Amylase 67 lipase 560 Computed tomography scan of the abdomen shows evidence of pancreatic inflammation Abdominal ultrasound shows mild hepatomegaly EKG tracing personally reviewed by me-nonspecific T-wave changes 2-D echocardiogram from 2018 shows EF of less than 20% Assessment: -Acute pancreatitis in a patient with a prior history of alcoholism, POA -Coronary artery disease -Acute COPD exacerbation in a current smoker, POA -Diabetes mellitus type 2 chronically on insulin, uncontrolled with hyperglycemia -GERD -Hyperlipidemia -Essential hypertension -Obstructive sleep apnea sometimes uses CPAP machine -DJD -Chronic debridement dependence patient cigarette smoker -AICD -Chronic congestive heart failure from systolic dysfunction EF less than 20% Disposition: Home Patient Condition at Discharge: Stable Plan - Discharge Summary New Discharge Prescriptions: New Ipratropium-Albuterol Nebulize [Duoneb 0.5 mg-3 mg/3 ml Soln] 3 ml INHALATION BID #60 ml Continue Potassium Chloride ER [K-Dur 10] 10 meq PO BID Morphine Sulfate Ir [MSIR] 30 mg PO QID PRN PRN Reason: Pain Insulin Glargine,Hum.rec.anlog [Basaglar Kwikpen U-100] 100 unit SQ BID DULoxetine HCL [Cymbalta] 60 mg PO BID Metoprolol Succinate [Toprol XL] 50 mg PO DAILY Furosemide [Lasix] 60 mg PO BID Atorvastatin Calcium [Lipitor] 80 mg PO DAILY Ondansetron [Zofran ODT] 4 mg PO Q8HR PRN #15 tab PRN Reason: Nausea Discharge Medication List Morphine Sulfate Ir [MSIR] 30 mg PO QID PRN 02/05/19 [History] Potassium Chloride ER [K-Dur 10] 10 meq PO BID 02/05/19 [History] Atorvastatin Calcium [Lipitor] 80 mg PO DAILY 11/28/19 [History] DULoxetine HCL [Cymbalta] 60 mg PO BID 11/28/19 [History] Furosemide [Lasix] 60 mg PO BID 11/28/19 [History] Insulin Glargine,Hum.rec.anlog [Basaglar Kwikpen U-100] 100 unit SQ BID 11/28/19 [History] Metoprolol Succinate [Toprol XL] 50 mg PO DAILY 11/28/19 [History] Ondansetron [Zofran ODT] 4 mg PO Q8HR PRN #15 tab 11/28/19 [Rx] Ipratropium-Albuterol Nebulize [Duoneb 0.5 mg-3 mg/3 ml Soln] 3 ml INHALATION BID #60 ml 12/01/19 [Rx] Follow up Appointment(s)/Referral(s): Hany Rodríguez MD [Primary Care Provider] - 12/02/19 4:30 pm Activity/Diet/Wound Care/Special Instructions: soft bland diabetic diet - low fat Discharge Disposition: HOME SELF-CARE
== END 2019-12-01 15:00 | disposition home or self-care (01) | DRG 439 ==
LOC: EC 08:11 → 4SSUR 13:05
PROVIDERS: ADMIT Hospitalist; ATTEND Hospitalist
DX: K85.90 Acute pancreatitis without necrosis or infection, unspecified (principal); I50.20 Unspecified systolic (congestive) heart failure; J44.1 Chronic obstructive pulmonary disease with (acute) exacerbation; K59.00 Constipation, unspecified; E11.65 Type 2 diabetes mellitus with hyperglycemia; E78.5 Hyperlipidemia, unspecified; F17.210 Nicotine dependence, cigarettes, uncomplicated; F10.21 Alcohol dependence, in remission; F41.9 Anxiety disorder, unspecified; F90.9 Attention-deficit hyperactivity disorder, unspecified type; G47.33 Obstructive sleep apnea (adult) (pediatric); Z99.89 Dependence on other enabling machines and devices; I11.0 Hypertensive heart disease with heart failure; I25.10 Atherosclerotic heart disease of native coronary artery without angina pectoris; I25.2 Old myocardial infarction; I25.5 Ischemic cardiomyopathy; Z11.59 Encounter for screening for other viral diseases; K21.9 Gastro-esophageal reflux disease without esophagitis; M19.90 Unspecified osteoarthritis, unspecified site; G89.29 Other chronic pain; M54.2 Cervicalgia; Z98.1 Arthrodesis status; Z79.4 Long term (current) use of insulin; Z79.899 Other long term (current) drug therapy; Z81.1 Family history of alcohol abuse and dependence; Z90.49 Acquired absence of other specified parts of digestive tract; Z86.14 Personal history of Methicillin resistant Staphylococcus aureus infection; Z95.810 Presence of automatic (implantable) cardiac defibrillator
CPT/HCPCS: 36415; 74018; 74177; 80048; 80053; 81003; 82150; 83690; 85025; 85027; 85610; 85730; 87635; 93005; 94640; 96361; 96374; 96375; 99285

== ENCOUNTER 2020-07-09 05:52 | Emergency (ER) | payer MEDICARE, OTHER ==
[2020-07-09 06:01] VITALS: PULSE 91; TEMP 98.6
[2020-07-09] MEDS ORDERED: HYDROmorphone 0.5 MG/0.5 ML SYRINGE IVP STA (06:40)
[2020-07-09] MEDS ORDERED: SODIUM CHLORIDE 0.9% 1,000 ML IV STA (06:40)
[2020-07-09] MEDS ORDERED: ONDANSETRON 4 MG/2 ML VIAL IVP STA (06:40)
[2020-07-09 07:07] LABS: Basophils # (A) 0.2 k/uL (0-0.2); Basophils % (A) 2 %; Eosinophils # (A) 0.5 k/uL (0-0.7); Eosinophils % (A) 4 %; HCT 50.2 % (39.0-53.0); HGB 17.6 gm/dL (13.0-17.5); Lymphocytes # (A) 4.6 k/uL (1.0-4.8); Lymphocytes % (A) 35 %; MCH 30.3 pg (25.0-35.0); MCV 86.7 fL (80.0-100.0); Mean Platelet Volume 8.5; Monocytes # (A) 0.9 k/uL (0-1.0); Monocytes % (A) 6 %; Neutrophils # (A) 6.9 k/uL (1.3-7.7); Neutrophils % (A) 52 %; Platelet Count 202 k/uL (150-450); RBC 5.79 m/uL (4.30-5.90); RDW 12.5 % (11.5-15.5); WBC 13.4 k/uL (3.8-10.6)
--- NOTE | 2020-07-09 07:12 | ED ---
Abdominal Pain HPI - General Chief Complaint: Abdominal Pain Stated Complaint: Abd Pain Time Seen by Provider: 07/09/20 06:03 Source: patient, RN notes reviewed Mode of arrival: ambulatory Limitations: no limitations - History of Present Illness Initial Comments: 50-year-old male presents emergency Department with chief complaint of abdominal pain. Patient states started yesterday is worsened today. Patient states symptoms right lower quadrant. He's noticed some swelling also. Patient does have history of pancreatitis reminds him of this. Patient denies any fevers or chills on significant nausea and diarrhea constipation or dysuria no hematuria she's had a prior cholecystectomy. - Related Data Home Medications Medication Instructions Recorded Confirmed Morphine Sulfate Ir [MSIR] 30 mg PO QID PRN 02/05/19 11/29/19 Potassium Chloride ER [K-Dur 10] 10 meq PO BID 02/05/19 11/29/19 Atorvastatin Calcium [Lipitor] 80 mg PO DAILY 11/28/19 11/29/19 DULoxetine HCL [Cymbalta] 60 mg PO BID 11/28/19 11/29/19 Furosemide [Lasix] 60 mg PO BID 11/28/19 11/29/19 Insulin Glargine,Hum.rec.anlog 100 unit SQ BID 11/28/19 11/29/19 [Basaglar Kwikpen U-100] Metoprolol Succinate [Toprol XL] 50 mg PO DAILY 11/28/19 11/29/19 Previous Rx's Medication Instructions Recorded Ondansetron [Zofran ODT] 4 mg PO Q8HR PRN #15 tab 11/28/19 Ipratropium-Albuterol Nebulize 3 ml INHALATION BID #60 ml 12/01/19 [Duoneb 0.5 mg-3 mg/3 ml Soln] Allergies Allergy/AdvReac Type Severity Reaction Status Date / Time azithromycin Allergy Anaphylaxis Verified 07/09/20 06:01 gemfibrozil [From Lopid] Allergy Rash/Hives Verified 07/09/20 06:01 Review of Systems ROS Statement: Those systems with pertinent positive or pertinent negative responses have been documented in the HPI. ROS Other: All systems not noted in ROS Statement are negative. Past Medical History Past Medical History: Asthma, Coronary Artery Disease (CAD), Chest Pain / Angina, Heart Failure, COPD, Diabetes Mellitus, GERD/Reflux, Hyperlipidemia, Hypertension, Myocardial Infarction ([place]), Pneumonia, Sleep Apnea/CPAP/BIPAP, Supraventricular Tachycardia (SVT) Additional Past Medical History / Comment(s): Ischemic cardiomyopathy, chronic CHF, SVT, IDDM type II, KAMINI with CPAP occasionally used, chronic cervical/back pain, DJD, diabetic foot wounds x 4 months. Last Myocardial Infarction Date:: 12/11/17 History of Any Multi-Drug Resistant Organisms: MRSA Date of last positivie culture/infection: 03/10/20 MDRO Source:: MRSA TOE Past Surgical History: Adenoidectomy, AICD, Back Surgery, Cholecystectomy, EPS, Heart Catheterization, Pacemaker, Tonsillectomy Additional Past Surgical History / Comment(s): 12/10/17 cardiac cath, previous cardiac cath, 09/02/14 AICD/pacer, EGD/colonoscopy, low back surgery with fusion. Past Anesthesia/Blood Transfusion Reactions: Motion Sickness Additional Past Anesthesia/Blood Transfusion Reaction / Comment(s): Pt states he received blood with back surgery without reaction. Type of Cardiac Device: Permanent Pacemaker, AICD Device Placement Date:: 09-02-14 Past Psychological History: ADD/ADHD, Anxiety Smoking Status: Current every day smoker Past Alcohol Use History: None Reported Past Drug Use History: Marijuana - Past Family History Father Additional Family Medical History / Comment(s): Pt has not kept in close contact with his father for many yrs. Father was an alcoholic and pt believes he has di ed from cirrhosis of the liver. Mother History Unknown: Yes Additional Family Medical History / Comment(s): Pt is not in contact with his mother or his father who he has heard had . General Exam Limitations: no limitations General appearance: alert, in no apparent distress Head exam: Present: atraumatic, normocephalic, normal inspection Eye exam: Present: normal appearance, PERRL, EOMI. Absent: scleral icterus, conjunctival injection, periorbital swelling ENT exam: Present: normal exam, normal oropharynx, mucous membranes moist Neck exam: Present: normal inspection, full ROM. Absent: tenderness, meningismus, lymphadenopathy Respiratory exam: Present: normal lung sounds bilaterally. Absent: respiratory distress, wheezes, rales, rhonchi, stridor Cardiovascular Exam: Present: regular rate, normal rhythm, normal heart sounds. Absent: systolic murmur, diastolic murmur, rubs, gallop, clicks GI/Abdominal exam: Present: soft, tenderness (Moderate lower quadrant), normal bowel sounds, hernia (Right ventral). Absent: distended, guarding, rebound, rigid Back exam: Absent: CVA tenderness (R), CVA tenderness (L) Neurological exam: Present: alert, oriented X3 Skin exam: Present: warm, dry, intact, normal color. Absent: rash Course Vital Signs 07/09/20 05:56 Temperature 98.6 F Pulse Rate 91 Respiratory 16 Rate Blood Pressure 120/82 O2 Sat by Pulse 97 Oximetry Medical Decision Making - Medical Decision Making 50-year-old male presented for abdominal pain. CT does not reveal any significant abnormality's. Patient feels greatly improved. He is well- hydrated. Patient discharged in stable condition. Patient was given fluids, pain control. Patient does have a hernia that is reducible. - Lab Data Result diagrams: 07/09/20 06:50 07/09/20 06:50 Lab Results 07/09/20 07/09/20 07/09/20 Range/Units 06:50 06:50 06:50 WBC 13.4 H (3.8-10.6) k/uL RBC 5.79 (4.30-5.90) m/uL Hgb 17.6 H (13.0-17.5) gm/dL Hct 50.2 (39.0-53.0) % MCV 86.7 (80.0-100.0) fL MCH 30.3 (25.0-35.0) pg MCHC 35.0 (31.0-37.0) g/dL RDW 12.5 (11.5-15.5) % Plt Count 202 (150-450) k/uL MPV 8.5 Neutrophils % 52 % Lymphocytes % 35 % Monocytes % 6 % Eosinophils % 4 % Basophils % 2 % Neutrophils # 6.9 (1.3-7.7) k/uL Lymphocytes # 4.6 (1.0-4.8) k/uL Monocytes # 0.9 (0-1.0) k/uL Eosinophils # 0.5 (0-0.7) k/uL Basophils # 0.2 (0-0.2) k/uL Sodium 138 (137-145) mmol/L Potassium 4.2 (3.5-5.1) mmol/L Chloride 101 (98-107) mmol/L Carbon Dioxide 27 (22-30) mmol/L Anion Gap 10 mmol/L BUN 20 (9-20) mg/dL Creatinine 0.92 (0.66-1.25) mg/dL Est GFR (CKD-EPI)AfAm >90 (>60 ml/min/1.73 sqM) Est GFR (CKD-EPI)NonAf >90 (>60 ml/min/1.73 sqM) Glucose 61 L (74-99) mg/dL Plasma Lactic Acid Shane (0.7-2.0) mmol/L Calcium 9.2 (8.4-10.2) mg/dL Total Bilirubin 0.7 (0.2-1.3) mg/dL AST 34 (17-59) U/L ALT 25 (4-49) U/L Alkaline Phosphatase 79 (38-126) U/L Total Protein 7.9 (6.3-8.2) g/dL Albumin 4.5 (3.5-5.0) g/dL Amylase 60 (30-110) U/L Lipase 36 (23-300) U/L Urine Color Yellow Urine Appearance Clear (Clear) Urine pH 5.5 (5.0-8.0) Ur Specific [place] 1.010 (1.001-1.035) Urine Protein Negative (Negative) Urine Glucose (UA) Negative (Negative) Urine Ketones Negative (Negative) Urine Blood Negative (Negative) Urine Nitrite Negative (Negative) Urine Bilirubin Negative (Negative) Urine Urobilinogen <2.0 (<2.0) mg/dL Ur Leukocyte Esterase Negative (Negative) 07/09/20 Range/Units 06:50 WBC (3.8-10.6) k/uL RBC (4.30-5.90) m/uL Hgb (13.0-17.5) gm/dL Hct (39.0-53.0) % MCV (80.0-100.0) fL MCH (25.0-35.0) pg MCHC (31.0-37.0) g/dL RDW (11.5-15.5) % Plt Count (150-450) k/uL MPV Neutrophils % % Lymphocytes % % Monocytes % % Eosinophils % % Basophils % % Neutrophils # (1.3-7.7) k/uL Lymphocytes # (1.0-4.8) k/uL Monocytes # (0-1.0) k/uL Eosinophils # (0-0.7) k/uL Basophils # (0-0.2) k/uL Sodium (137-145) mmol/L Potassium (3.5-5.1) mmol/L Chloride (98-107) mmol/L Carbon Dioxide (22-30) mmol/L Anion Gap mmol/L BUN (9-20) mg/dL Creatinine (0.66-1.25) mg/dL Est GFR (CKD-EPI)AfAm (>60 ml/min/1.73 sqM) Est GFR (CKD-EPI)NonAf (>60 ml/min/1.73 sqM) Glucose (74-99) mg/dL Plasma Lactic Acid Shane 2.7 H* (0.7-2.0) mmol/L Calcium (8.4-10.2) mg/dL Total Bilirubin (0.2-1.3) mg/dL AST (17-59) U/L ALT (4-49) U/L Alkaline Phosphatase (38-126) U/L Total Protein (6.3-8.2) g/dL Albumin (3.5-5.0) g/dL Amylase (30-110) U/L Lipase (23-300) U/L Urine Color Urine Appearance (Clear) Urine pH (5.0-8.0) Ur Specific [place] (1.001-1.035) Urine Protein (Negative) Urine Glucose (UA) (Negative) Urine Ketones (Negative) Urine Blood (Negative) Urine Nitrite (Negative) Urine Bilirubin (Negative) Urine Urobilinogen (<2.0) mg/dL Ur Leukocyte Esterase (Negative) Disposition Clinical Impression: Abdominal pain Disposition: HOME SELF-CARE Condition: Stable Instructions (If sedation given, give patient instructions): Abdominal Pain (ED) Additional Instructions: Please return to the Emergency Department if symptoms worsen or any other concerns. Is patient prescribed a controlled substance at d/c from ED?: No Referrals: Hany Rodríguez MD [Primary Care Provider] - 1-2 days Time of Disposition: 08:34
[2020-07-09 07:16] LABS: ALT 25 U/L (4-49); African American GFR (CKD) >90 (>60 ml/min/1.73 sqM); Amylase 60 U/L (30-110); Anion Gap 10 mmol/L; Blood Urea Nitrogen 20 mg/dL (9-20); Calcium 9.2 mg/dL (8.4-10.2); Carbon Dioxide 27 mmol/L (22-30); Chloride 101 mmol/L (98-107); Glucose 61 mg/dL (74-99); Lipase 36 U/L (23-300); Non-African American GFR(CKD) >90 (>60 ml/min/1.73 sqM); Sodium 138 mmol/L (137-145); Total Bilirubin 0.7 mg/dL (0.2-1.3)
[2020-07-09 07:22] LABS: AST 34 U/L (17-59); Albumin 4.5 g/dL (3.5-5.0); Alkaline Phosphatase 79 U/L (38-126); Potassium 4.2 mmol/L (3.5-5.1); Total Protein 7.9 g/dL (6.3-8.2)
[2020-07-09 07:31] LABS: Appearance,Urine Clear (Clear); Bilirubin,Urine Negative (Negative); Blood,Urine Negative (Negative); Color,Urine Yellow; Glucose,Urine (UA) Negative (Negative); Ketones,Urine Negative (Negative); Leukocyte Esterase,Urine Negative (Negative); Nitrite,Urine Negative (Negative); PH, Urine 5.5 (5.0-8.0); Protein,Urine Negative (Negative); Urobilinogen,Urine <2.0 mg/dL (<2.0)
--- NOTE | 2020-07-09 08:19 | CT ---
EXAMINATION TYPE: CT abdomen pelvis w con DATE OF EXAM: 07/09/2020 COMPARISON: 11/29/2019 INDICATION: abd pain for 24 hours DLP: 1689.2 mGycm, Automated exposure control for dose reduction was used. CONTRAST: 100 mL of Isovue 300. Study performed without Oral Contrast TECHNIQUE: Axial images were obtained from above the diaphragm to the pubic rami in the axial plane a t 5 mm thick sections. Reconstructed images are reviewed on the computer in the coronal plane. FINDINGS: Limited CT sections are obtained the lung bases. The lung bases are clear. CT ABDOMEN: Liver: Mild diffuse fatty infiltration Spleen: Normal Pancreas: Normal Adrenal glands: There is mild thickening of the left adrenal gland at 1.1 cm. Right adrenal gland justyna ears normal 3 no interval changes evident Gallbladder: Normal Kidneys: May be prior infarct along the posterior left kidney with lack of contrast into the cortex. This is stable. No masses are evident. No hydronephrosis is present. No cysts are present. Delayed images were obtained through the kidneys, which remain unremarkable. Aorta: Vascular calcification is within the aorta. Inferior vena cava: Normal. CT PELVIS: Loops of bowel within the abdomen and pelvis are normal. Study is performed without oral contrast limiting bowel evaluation Appendix: Normal as visualized. Urinary bladder: Normal. Genitourinary structures: Prostate appears normal Osseous structures: No suspicious lytic or sclerotic lesions. Surgical changes are in the posterior l umbar spine. IMPRESSIONS: 1. No suspicious acute abnormality to account for patient's abdomen pain
[2020-07-09 08:46] VITALS: BP 113/75; RESP 18
== END 2020-07-09 08:46 | disposition home or self-care (01) ==
LOC: EC 05:52
DX: R10.31 Right lower quadrant pain (principal); R22.2 Localized swelling, mass and lump, trunk; F41.9 Anxiety disorder, unspecified; F90.9 Attention-deficit hyperactivity disorder, unspecified type; F17.200 Nicotine dependence, unspecified, uncomplicated; E11.9 Type 2 diabetes mellitus without complications; I50.9 Heart failure, unspecified; I11.0 Hypertensive heart disease with heart failure; G47.33 Obstructive sleep apnea (adult) (pediatric); E78.5 Hyperlipidemia, unspecified; I25.2 Old myocardial infarction; Z79.899 Other long term (current) drug therapy; Z79.4 Long term (current) use of insulin; Z88.0 Allergy status to penicillin; Z88.8 Allergy status to other drugs, medicaments and biological substances; Z86.14 Personal history of Methicillin resistant Staphylococcus aureus infection; Z95.5 Presence of coronary angioplasty implant and graft; Z95.810 Presence of automatic (implantable) cardiac defibrillator; Z98.1 Arthrodesis status; Z90.49 Acquired absence of other specified parts of digestive tract
CPT/HCPCS: 36415; 80053; 82150; 83605; 83690; 85025; 81003; 74177; 99284; 96374; 96375; 96361 ×2; J2405; J1170; Q9967

== ENCOUNTER → 2020-08-22 | Outpatient (CLI) | payer MEDICARE ==
[2020-08-23 02:01] LABS: African American GFR (CKD) 89.6 (60.0-200.0); Anion Gap 9.2 mmol/L (4.00-12.00); BUN/Creat Ratio 15.45 Ratio (12.00-20.00); Calcium 9.6 mg/dL (8.7-10.3); Carbon Dioxide 28.8 mmol/L (21.6-31.8); Chol/HDL Ratio 6.4; LDL Cholesterol,Calculated 156.8 mg/dL (0.0-131.0); Non-African American GFR(CKD) 77.3 (60.0-200.0); Potassium 4.4 mmol/L (3.5-5.5); VLDL Calculation 32.2 mg/dL (5.00-40.00)
== END | disposition home or self-care (01) ==
LOC: LABWHC1 15:28
PROVIDERS: ATTEND Internal Medicine Cardiovascular Disease
DX: E78.2 Mixed hyperlipidemia (principal)
CPT/HCPCS: 36415; 80048; 80061; 84450; 84460

== ENCOUNTER 2021-08-22 21:53 | Inpatient (IN) | payer MEDICARE, OTHER ==
[2021-08-23 01:10] LABS: Basophils # (A) 0.1 k/uL (0-0.2); Basophils % (A) 0 %; Eosinophils # (A) 0.2 k/uL (0-0.7); Eosinophils % (A) 2 %; HCT 44.6 % (39.0-53.0); HGB 14.3 gm/dL (13.0-17.5); Hypochromasia Slight; Lymphocytes # (A) 1.5 k/uL (1.0-4.8); Lymphocytes % (A) 10 %; MCH 27.6 pg (25.0-35.0); MCV 86.4 fL (80.0-100.0); Mean Platelet Volume 7.9; Monocytes # (A) 2.1 k/uL (0-1.0); Monocytes % (A) 14 %; Neutrophils # (A) 11.6 k/uL (1.3-7.7); Neutrophils % (A) 74 %; Platelet Count 235 k/uL (150-450); RBC 5.17 m/uL (4.30-5.90); RDW 15.1 % (11.5-15.5); WBC 15.7 k/uL (3.8-10.6)
--- NOTE | 2021-08-23 01:25 | XR ---
EXAM: XR Chest, 2 Views CLINICAL HISTORY: ITS.REASON XR Reason: Leg swelling TECHNIQUE: Frontal and lateral views of the chest. COMPARISON: 05/04/2018 IMPRESSION: Cardiomegaly. Mild vascular congestion. No effusion.
[2021-08-23 01:32] LABS: ALT 162 U/L (4-49); AST 126 U/L (17-59); African American GFR (CKD) >90 (>60 ml/min/1.73 sqM); Albumin 3.4 g/dL (3.5-5.0); Alkaline Phosphatase 143 U/L (38-126); Anion Gap 8 mmol/L; Blood Urea Nitrogen 17 mg/dL (9-20); Calcium 8.5 mg/dL (8.4-10.2); Carbon Dioxide 30 mmol/L (22-30); Chloride 98 mmol/L (98-107); Glucose 69 mg/dL (74-99); Non-African American GFR(CKD) >90 (>60 ml/min/1.73 sqM); Potassium 3.9 mmol/L (3.5-5.1); Sodium 136 mmol/L (137-145); Total Bilirubin 1.6 mg/dL (0.2-1.3); Total Protein 7.2 g/dL (6.3-8.2)
[2021-08-23] MEDS ORDERED: NALOXONE 0.4 MG/ML 1 ML VIAL IV PRN (02:27)
[2021-08-23] MEDS ORDERED: FUROSEMIDE 10 MG/ML 10 ML VIAL IV STA (02:27)
--- NOTE | 2021-08-23 02:30 | ED ---
General Adult HPI - General Chief complaint: Extremity Problem,Nontraumatic Stated complaint: L foot sore,bilateral leg swelling Time Seen by Provider: 08/22/21 23:49 Source: patient Mode of arrival: ambulatory Limitations: no limitations - History of Present Illness Initial comments: 51-year-old male patient with past medical history significant for asthma, coronary artery disease, heart failure, COPD, diabetes, hypertension, hyperlipidemia, sleep apnea, SVT, presents to the emergency department today for increased swelling to the bilateral lower extremities and evaluation of left foot wound. Patient has been increasing his Lasix dose at home he is taking currently 80 mg twice daily for the last 2 weeks when this swelling started. Patient states initially it did help but then his swelling got worse again. Denies significant shortness of breath or chest pain. States he does get winded with activity. Denies any fever or chills. States she's had a wound on the left foot for quite some time, states it is not healed previously did receive wound care. He denies any fevers or chills. Denies any nausea or vomiting. Denies any constipation or diarrhea. Denies cough or congestion. - Related Data Home Medications Medication Instructions Recorded Confirmed Morphine Sulfate Ir [MSIR] 30 mg PO QID PRN 02/05/19 11/29/19 Potassium Chloride ER [K-Dur 10] 10 meq PO BID 02/05/19 11/29/19 Atorvastatin Calcium [Lipitor] 80 mg PO DAILY 11/28/19 11/29/19 DULoxetine HCL [Cymbalta] 60 mg PO BID 11/28/19 11/29/19 Furosemide [Lasix] 60 mg PO BID 11/28/19 11/29/19 Insulin Glargine,Hum.rec.anlog 100 unit SQ BID 11/28/19 11/29/19 [Basaglar Kwikpen U-100] Metoprolol Succinate [Toprol XL] 50 mg PO DAILY 11/28/19 11/29/19 Previous Rx's Medication Instructions Recorded Ondansetron [Zofran ODT] 4 mg PO Q8HR PRN #15 tab 11/28/19 Ipratropium-Albuterol Nebulize 3 ml INHALATION BID #60 ml 12/01/19 [Duoneb 0.5 mg-3 mg/3 ml Soln] Allergies Allergy/AdvReac Type Severity Reaction Status Date / Time azithromycin Allergy Anaphylaxis Verified 08/22/21 23:12 gemfibrozil [From Lopid] Allergy Rash/Hives Verified 08/22/21 23:12 Review of Systems ROS Statement: Those systems with pertinent positive or pertinent negative responses have been documented in the HPI. ROS Other: All systems not noted in ROS Statement are negative. Past Medical History Past Medical History: Asthma, Coronary Artery Disease (CAD), Chest Pain / Angina, Heart Failure, COPD, Diabetes Mellitus, GERD/Reflux, Hyperlipidemia, Hypertension, Myocardial Infarction ([place]), Pneumonia, Sleep Apnea/CPAP/BIPAP, Supraventricular Tachycardia (SVT) Additional Past Medical History / Comment(s): Ischemic cardiomyopathy, chronic CHF, SVT, IDDM type II, KAMINI with CPAP occasionally used, chronic cervical/back pain, DJD, diabetic foot wounds x 4 months. Last Myocardial Infarction Date:: 12/11/17 History of Any Multi-Drug Resistant Organisms: MRSA Date of last positivie culture/infection: 03/10/20 MDRO Source:: MRSA TOE Past Surgical History: Adenoidectomy, AICD, Back Surgery, Cholecystectomy, EPS, Heart Catheterization, Pacemaker, Tonsillectomy Additional Past Surgical History / Comment(s): 12/10/17 cardiac cath, previous cardiac cath, 09/02/14 AICD/pacer, EGD/colonoscopy, low back surgery with fusion. Past Anesthesia/Blood Transfusion Reactions: Motion Sickness Additional Past Anesthesia/Blood Transfusion Reaction / Comment(s): Pt states he received blood with back surgery without reaction. Type of Cardiac Device: Permanent Pacemaker, AICD Device Placement Date:: 09-02-14 Past Psychological History: ADD/ADHD, Anxiety Smoking Status: Current every day smoker Past Alcohol Use History: None Reported Past Drug Use History: Marijuana - Past Family History Father Additional Family Medical History / Comment(s): Pt has not kept in close contact with his father for many yrs. Father was an alcoholic and pt believes he has from cirrhosis of the liver. Mother History Unknown: Yes Additional Family Medical History / Comment(s): Pt is not in contact with his mother or his father who he has heard had . General Exam Limitations: no limitations General appearance: alert, in no apparent distress, other (This is a well- developed, well-nourished adult male in no acute distress) ENT exam: Present: normal exam, normal oropharynx, mucous membranes moist Respiratory exam: Present: normal lung sounds bilaterally. Absent: respiratory distress, wheezes, rales, rhonchi, stridor Cardiovascular Exam: Present: normal rhythm, tachycardia, normal heart sounds. Absent: systolic murmur, diastolic murmur, rubs, gallop, clicks GI/Abdominal exam: Present: soft, normal bowel sounds. Absent: distended, tenderness, guarding, rebound, rigid Neurological exam: Present: alert, oriented X3, CN II-XII intact Psychiatric exam: Present: normal affect, normal mood Skin exam: Present: warm, dry, intact, normal color. Absent: rash Course Vital Signs 08/22/21 08/23/21 08/23/21 23:06 00:56 02:00 Temperature 99.0 F Pulse Rate 116 H 99 117 H Respiratory 23 16 24 Rate Blood Pressure 129/82 122/79 124/75 O2 Sat by Pulse 95 93 L 96 Oximetry EKG Findings - EKG Comments: EKG Findings:: EKG obtained at 0308 shows sinus tachycardia ventricular rate of 117, IN interval 166, QRS duration 102, QT 338, QTC 471. No evidence of ST elevation or depression. Medical Decision Making - Medical Decision Making 51-year-old male patient presented to the emergency department today for increased swelling to the bilateral lower extremities despite increasing his Lasix. Patient does have history for heart failure. Labs reviewed and did reveal mildly elevated white blood cell count. Does have a chronic wound to the left foot. Chest x-ray showed cardiomegaly with mild pulmonary vascular congestion. BNP was elevated at over 6000. His previous echocardiogram in 2018 listed an ejection fraction of less than 20%. He'll be given IV dose of Lasix. We admitted to the hospital for further evaluation by cardiology. Patient is agreeable this plan. My attending is Dr. Encarnacion. - Lab Data Result diagrams: 08/23/21 00:56 08/23/21 00:56 Lab Results 08/23/21 08/23/21 08/23/21 Range/Units 00:56 00:56 00:56 WBC 15.7 H (3.8-10.6) k/uL RBC 5.17 (4.30-5.90) m/uL Hgb 14.3 (13.0-17.5) gm/dL Hct 44.6 (39.0-53.0) % MCV 86.4 (80.0-100.0) fL MCH 27.6 (25.0-35.0) pg MCHC 32.0 (31.0-37.0) g/dL RDW 15.1 (11.5-15.5) % Plt Count 235 (150-450) k/uL MPV 7.9 Neutrophils % 74 % Lymphocytes % 10 % Monocytes % 14 % Eosinophils % 2 % Basophils % 0 % Neutrophils # 11.6 H (1.3-7.7) k/uL Lymphocytes # 1.5 (1.0-4.8) k/uL Monocytes # 2.1 H (0-1.0) k/uL Eosinophils # 0.2 (0-0.7) k/uL Basophils # 0.1 (0-0.2) k/uL Hypochromasia Slight Sodium 136 L (137-145) mmol/L Potassium 3.9 (3.5-5.1) mmol/L Chloride 98 (98-107) mmol/L Carbon Dioxide 30 (22-30) mmol/L Anion Gap 8 mmol/L BUN 17 (9-20) mg/dL Creatinine 0.74 (0.66-1.25) mg/dL Est GFR (CKD-EPI)AfAm >90 (>60 ml/min/1.73 sqM) Est GFR (CKD-EPI)NonAf >90 (>60 ml/min/1.73 sqM) Glucose 69 L (74-99) mg/dL Calcium 8.5 (8.4-10.2) mg/dL Magnesium 2.0 (1.6-2.3) mg/dL Total Bilirubin 1.6 H (0.2-1.3) mg/dL AST 126 H (17-59) U/L ALT 162 H (4-49) U/L Alkaline Phosphatase 143 H (38-126) U/L NT-Pro-B Natriuret Pep 6330 pg/mL Total Protein 7.2 (6.3-8.2) g/dL Albumin 3.4 L (3.5-5.0) g/dL - Radiology Data Radiology results: report reviewed, image reviewed 2 views of the chest are obtained. Reviewed in its entirety. Impression by Dr. Reuben shows cardia megaly. Mild vascular congestion. No effusion. Disposition Clinical Impression: Heart failure, Lower extremity edema, Wound of left foot Disposition: ADMITTED IP TO THIS [facility] Condition: Serious Referrals: Hany Rodríguez MD [Primary Care Provider] - 1-2 days Decision to Admit Reason: Admit from [facility] Decision Date: 08/23/21 Decision Time: 02:29
[2021-08-23] MEDS ORDERED: FUROSEMIDE 10 MG/ML 4 ML VIAL IV SCH (08:00)
[2021-08-23 08:26] LABS: Glucose,Whole Blood 152 mg/dL (75-99)
--- NOTE | 2021-08-23 10:00 | ECHOF ---
Referral Reason:HF; Lower extremity edema MEASUREMENTS -------- HEIGHT: 177.8 cm WEIGHT: 111.1 kg BP: 122/80 RVIDd: 3.8 cm (< 3.3) IVSd: 1.4 cm (0.6 - 1.1) LVIDd: 6.1 cm (3.9 - 5.3) LVPWd: 1.4 cm (0.6 - 1.1) IVSs: 1.9 cm LVIDs: 5.6 cm LVPWs: 1.6 cm LA Diam: 4.0 cm (2.7 - 3.8) LAESV Index (A-L): 35.38 ml/m Ao Diam: 2.9 cm (2.0 - 3.7) AV Cusp: 2.2 cm (1.5 - 2.6) MV EXCURSION: 14.056 mm (> 18.000) MV EF SLOPE: 52 mm/s (70 - 150) EPSS: 3.0 cm RAP: 15.00 mmHg RVSP: 56.74 mmHg FINDINGS -------- Paced rhythm. This was a technically good study. The left ventricle is mildly dilated. There is moderate concentric left ventricular hypertrophy. Overall left ventricular systolic function is severely impaired with, an EF < 20%. The right ventricle is mild to moderately enlarged. LA is moderately dilated 34-39 ml/m2 The right atrium is normal in size. Interatrial and interventricular septum intact. The aortic valve is trileaflet, and appears structurally normal. No aortic stenosis or regurgitation. Mild mitral regurgitation is present. Mild tricuspid regurgitation present. There is severe pulmonary hypertension. The right ventricul ar systolic pressure, as measured by Doppler, is 56.74mmHg. Trace/mild (physiologic) pulmonic regurgitation. The aortic root size is normal. The inferior vena cava is dilated with no significant inspiratory collapse which is consistent estima greg right atrial pressure of >15 mmHg. There is no pericardial effusion. CONCLUSIONS -------- 1. The left ventricle is mildly dilated. 2. There is moderate concentric left ventricular hypertrophy. 3. Overall left ventricular systolic function is severely impaired with, an EF < 20%. 4. The right ventricle is mild to moderately enlarged. 5. LA is moderately dilated 34-39 ml/m2 6. The aortic valve is trileaflet, and appears structurally normal. No aortic stenosis or regurgitati on. 7. Mild mitral regurgitation is present. 8. Mild tricuspid regurgitation present. 9. There is severe pulmonary hypertension. 10. The right ventricular systolic pressure, as measured by Doppler, is 56.74mmHg. 11. Trace/mild (physiologic) pulmonic regurgitation. 12. The inferior vena cava is dilated with no significant inspiratory collapse which is consistent es timated right atrial pressure of >15 mmHg. 13. There is no pericardial effusion. ROOF MECHANIC: Kena Kwan RDCS
--- NOTE | 2021-08-23 10:22 | P.CRDCN ---
History of Present Illness History of present illness: HISTORY OF PRESENTING ILLNESS This is a pleasant 51-year-old male past medical history significant for mild nonobstructive coronary artery disease, dilated cardiomyopathy, chronic systolic heart failure, status post AICD in 2014, type 2 diabetes, hypertension, dyslipidemia, chronic nicotine dependence, COPD, diabetic foot wounds. He follows in the office with Dr. Abbasi. We have been asked to see in consultation for congestive heart failure. Patient presents emergency department with wo rsening bilateral lower extremity edema and shortness of breath. He states that for about 2 weeks he has been having symptoms of extremity edema he states that he increased his lasix himself and has some improvement, however, his symptoms worsened again and he decided to come to the emergency department for further evaluation. He has not followed up with Dr. Abbasi since 07/2020. He is having symptoms of orthopnea. He denies chest pain, lightheadedness dizziness, syncope or near syncope. He also endorses a left foot wound that has not healed. DIAGNOSTICS Most recent Echo 01/2020 in the office revealed an EF of 23%, dilated cardiomyopathy, mild mitral regurgitation, mild tricuspid regurgitation EKG reveals sinus tachycardia, heart rate 117, LVH, poor R wave progression, no significant ST ST-T wave abnormalities. Telemetry tracings indicate sinus mechanism HR 110-120 Chest xray vascular congestion Current home medications include atorvastatin 40 mg nightly, Lasix 80 mg twice a day, Toprol succinate 50 mg daily, aspirin 81 mg daily Lasix, WBC 15.7, hemoglobin 14.3, platelets 235, sodium 136, potassium 3.9, BUN 17, serum creatinine 0.7, magnesium 2.0, proBNP 6230, COVID-19 negative Most recent cardiac catheterization 11/2017 revealed minimal coronary artery disease with mild irregularities in the RCA and mid LAD REVIEW OF SYSTEMS At the time of my exam: CONSTITUTIONAL: Denies fever or chills. CARDIOVASCULAR: Denies chest pain, +shortness of breath, +orthopnea, Denies PND or palpitations. +lower extremity edema RESPIRATORY: Denies cough. GASTROINTESTINAL: Denies abdominal pain, diarrhea, constipation, nausea or vomiting. MUSCULOSKELETAL: Denies myalgias. NEUROLOGIC: Denies numbness, tingling, headacbe or weakness. ENDOCRINE: Denies fatigue, weight change, polydipsia or polyurina. GENITOURINARY: Denies burning, hematuria or urgency with micturation. HEMATOLOGIC: Denies history of anemia or bleeding. PHYSICAL EXAMINATION CONSTITUTIONAL: Appears short of breath HEENT: Head is normocephalic. Pupils are equal, round. Sclerae anicteric. Mucous membranes of the mouth are moist. mild JVD noted. No carotid bruit. CHEST EXAMINATION: Lungs are clear to auscultation. No chest wall tenderness is noted on palpation or with deep breathing. HEART EXAMINATION: Regular, tachycardic rate and rhythm. S1, S2 heard. Systolic ejection murmur ABDOMEN: Soft, nontender. Positive bowel sounds. EXTREMITIES: 2+ peripheral pulses, 3+ bilateral lower extremity edema and no zeke f tenderness. SKIN: Left foot wound noted NEUROLOGIC EXAMINATION: Patient is awake, alert and oriented x3. ASSESSMENT Acute on chronic Heart failure with reduced ejection fraction, systolic Dilated, nonischemic cardiomyopathy status post AICD implantation in 2014 Type 2 diabetes Hypertension Dyslipidemia Chronic nicotine dependence COPD Diabetic foot wound Leukocytosis PLAN -Start IV Lasix drip 10mg/hr -Monitor I/Os, daily weights, renal function and electrolytes -Continue lisinopril 5mg daily, Aspirin 81mg daily, Metoprolol succinate 50mg daily -Obtain 2D echocardiogram -Recommend inpatient admission for congestive heart failure -Further recommendations based on clinical course Nurse Practitioner note has been reviewed, I agree with a documented findings and plan of care. Patient was seen and examined. Past Medical History Past Medical History: Asthma, Coronary Artery Disease (CAD), Chest Pain / Angina, Heart Failure, COPD, Diabetes Mellitus, GERD/Reflux, Hyperlipidemia, Hypertension, Myocardial Infarction ([place]), Pneumonia, Sleep Apnea/CPAP/BIPAP, Supraventricular Tachycardia (SVT) Additional Past Medical History / Comment(s): Ischemic cardiomyopathy, chronic CHF, SVT, IDDM type II, KAMINI with CPAP occasionally used, chronic cervical/back pain, DJD, diabetic foot wounds x 4 months. Last Myocardial Infarction Date:: 12/11/17 History of Any Multi-Drug Resistant Organisms: MRSA Date of last positivie culture/infection: 03/10/20 MDRO Source:: MRSA TOE Past Surgical History: Adenoidectomy, AICD, Back Surgery, Cholecystectomy, EPS, Heart Catheterization, Pacemaker, Tonsillectomy Additional Past Surgical History / Comment(s): 12/10/17 cardiac cath, previous cardiac cath, 09/02/14 AICD/pacer, EGD/colonoscopy, low back surgery with fusion. Past Anesthesia/Blood Transfusion Reactions: Motion Sickness Additional Past Anesthesia/Blood Transfusion Reaction / Comment(s): Pt states he received blood with back surgery without reaction. Type of Cardiac Device: Permanent Pacemaker, AICD Device Placement Date:: 09-02-14 Past Psychological History: ADD/ADHD, Anxiety Smoking Status: Current every day smoker Past Alcohol Use History: None Reported Past Drug Use History: Marijuana - Past Family History Father Additional Family Medical History / Comment(s): Pt has not kept in close contact with his father for many yrs. Father was an alcoholic and pt believes he has from cirrhosis of the liver. Mother History Unknown: Yes Additional Family Medical History / Comment(s): Pt is not in contact with his mother or his father who he has heard had . Medications and Allergies Home Medications Medication Instructions Recorded Confirmed Type Morphine Sulfate Ir [MSIR] 30 mg PO QID PRN 02/05/19 08/23/21 History DULoxetine HCL [Cymbalta] 60 mg PO DIRECTED 11/28/19 08/23/21 History Furosemide [Lasix] 80 mg PO BID 11/28/19 08/23/21 History Metoprolol Succinate [Toprol XL] 50 mg PO DAILY 11/28/19 08/23/21 History Aspirin EC [Ecotrin Low Dose] 81 mg PO DAILY 08/23/21 08/23/21 History Atorvastatin [Lipitor] 40 mg PO HS 08/23/21 08/23/21 History Citalopram Hydrobromide 40 mg PO DIRECTED 08/23/21 08/23/21 History Insulin Glargine,Hum.rec.anlog 100 units SQ BID 08/23/21 08/23/21 History [Touindio Solostar] Allergies Allergy/AdvReac Type Severity Reaction Status Date / Time azithromycin Allergy Anaphylaxis Verified 08/23/21 08:02 gemfibrozil [From Lopid] Allergy Rash/Hives Verified 08/23/21 08:02 Physical Exam Vitals: Vital Signs Temp Pulse Resp BP Pulse Ox 08/23/21 05:49 115 H 24 122/80 92 L 08/23/21 02:00 117 H 24 124/75 96 08/23/21 00:56 99 16 122/79 93 L 08/22/21 23:06 99.0 F 116 H 23 129/82 95 Intake and Output 08/22/21 08/23/21 08/23/21 22:59 06:59 14:59 Other: Weight 111.13 kg Results 08/23/21 00:56 08/23/21 00:56 Cardiac Enzymes 08/23/21 Range/Units 00:56 AST 126 H (17-59) U/L CBC 08/23/21 Range/Units 00:56 WBC 15.7 H (3.8-10.6) k/uL RBC 5.17 (4.30-5.90) m/uL Hgb 14.3 (13.0-17.5) gm/dL Hct 44.6 (39.0-53.0) % Plt Count 235 (150-450) k/uL Comprehensive Metabolic Panel 08/23/21 Range/Units 00:56 Sodium 136 L (137-145) mmol/L Potassium 3.9 (3.5-5.1) mmol/L Chloride 98 (98-107) mmol/L Carbon Dioxide 30 (22-30) mmol/L BUN 17 (9-20) mg/dL Creatinine 0.74 (0.66-1.25) mg/dL Glucose 69 L (74-99) mg/dL Calcium 8.5 (8.4-10.2) mg/dL AST 126 H (17-59) U/L ALT 162 H (4-49) U/L Alkaline Phosphatase 143 H (38-126) U/L Total Protein 7.2 (6.3-8.2) g/dL Albumin 3.4 L (3.5-5.0) g/dL Current Medications Generic Name Dose Route Start Last Admin Trade Name Freq PRN Reason Stop Dose Admin Acetaminophen 650 mg 08/23/21 02:27 Acetaminophen Tab 325 Mg Tab PO Q6HR PRN Mild Pain or Fever > 100.5 Furosemide 40 mg 08/23/21 08:00 08/23/21 08:10 Furosemide 10 Mg/Ml 4 Ml Vial IV 40 mg Q8HR LAN Administration Naloxone HCl 0.2 mg 08/23/21 02:27 Naloxone 0.4 Mg/Ml 1 Ml Vial IV Q2M PRN Opioid Reversal Ondansetron HCl 4 mg 08/23/21 02:27 Ondansetron 4 Mg/2 Ml Vial IVP Q8HR PRN Nausea And Vomiting Intake and Output 08/22/21 08/23/21 08/23/21 22:59 06:59 14:59 Other: Weight 111.13 kg 08/23/21 00:56 08/23/21 00:56
[2021-08-23] MEDS: METOPROLOL SUCCINATE (ER) 50 MG TAB.ER.24H PO SCH (10:31)
[2021-08-23] MEDS: FUROSEMIDE 100 MG in SODIUM CHLORIDE 0.9% 90 ML IV SCH ×2 (10:32→19:23)
[2021-08-23] MEDS: ASPIRIN 81 MG PO SCH (10:37)
[2021-08-23] MEDS: lisinopriL 5 MG TAB PO SCH (10:55)
[2021-08-23 12:04] LABS: Glucose,Whole Blood 211 mg/dL (75-99)
[2021-08-23] MEDS: INSULIN DETEMIR (LEVEMIR) 100 UNIT/ML SYR SQ SCH ×2 (12:12→20:07)
[2021-08-23] MEDS: INSULIN ASPART (NovoLOG) 100 UNIT/ML VIAL SQ SCH ×3 (12:12→20:10)
[2021-08-23] MEDS: DULoxetine HCL 60 MG CAPSULE.DR PO SCH ×2 (12:12→20:05)
[2021-08-23 12:48] LABS: Glucose,Whole Blood 250 mg/dL (75-99)
[2021-08-23] MEDS ORDERED: CALCIUM CARBONATE 500 MG CHEWABLE PO PRN (13:05)
[2021-08-23] MEDS: BUDESONIDE 1 MG/2 ML NEBU INHALATION SCH ×2 (15:22→19:26)
[2021-08-23] MEDS: IPRATROPIUM-ALBUTEROL 3 ML NEB INHALATION SCH ×2 (15:23→19:26)
--- NOTE | 2021-08-23 15:43 | P.HPIM ---
History of Present Illness H&P Date: 08/23/21 Chief Complaint: Short of breath Chief Complaint: Abdominal pain History of presenting complaint: This is a pleasant 51-year-old patient of Dr. Hany Rodríguez. Chronic stable medical conditions include nonischemic CHF EF less than 20%, COPD, diabetes, GERD, hypertension, hyperlipidemia, obstructive sleep apnea with CPAP, AICD and a pacemaker. Patient lives with his 20-year-old son. Normally uses a cane to get about. did drink heavily in the past and quit 20 years ago. Still an active smoker. Patient now presents for noticing increasing swelling in the lower extremity. At least for 2 weeks. Normally uses 2 pillows. Some persistent supple disease. More orthopnea. Has a cough. No sputum. No fever no chills. Decreased appetite. More short of breath. Some wheezing. Patient also has a wound on the left foot for which she followed at the wound care center. Denies any drainage. But wants it to be looked at. Patient has continued to smoke. Review of systems: GEN.: Tired, decreased appetite EYES: None HEENT: None NECK: None RESPIRATORY: As above CARDIOVASCULAR: As above GASTROINTESTINAL: As above GENITOURINARY: None MUSCULOSKELETAL: Joint pains LYMPHATICS: None HEMATOLOGICAL: None PSYCHIATRY: Anxious NEUROLOGICAL: None Past medical history to include: COPD, CHF-EF 20%, diabetes, GERD, hyperlipidemia, hypertension,(s) sleep apnea uses CPAP sometimes, ischemic cardiomyopathy, chronic cervical back pain and DJD, diabetic foot wounds Social history: Lives with his 20 -year-old son. Does use a cane. Disabled. 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 Been smoking 2 packs a day for most of his life now down to quarter pack a day. Heavy drinking in the past quit 20 years ago. 4 hits of marijuana nightly. Family history: Reviewed, noncontributory to presentation Physical examination: VITAL SIGNS: [99, 116, 23, 129/82, 95% on room air upon presentation] GENERAL: BMI 35.2, sitting at the age of the bed, short of breath. EYES: [Pupils equal. Conjunctiva [place]]l. HEENT: [External appearance of nose and ears normal, oral cavity grossly normal]. NECK: [JVD unable to assess; masses not palpable]. HEART: [First and second heart sounds are normal; edema present]. LUNGS:[ Respiratory rate increased; diminished breath sounds prolonged expiration]. ABDOMEN: [Soft, mild distention nontender, liver spleen not palpable, no masses palpable]. PSYCH: [Alert and oriented x3; mood and affect anxious]l. MUSCULOSKELETAL:No Clubbing/cyanosis;muscles-grossly intact DERMATOLOGICAL: Wound on the plantar surface of left foot. Ichthyosis especially lower extremity bilateral NEUROLOGICAL: [Cranial nerves grossly intact; no facial asymmetry, power and sensation grossly intact]. LYMPHATICS: [No lymph nodes palpable in the axilla and neck] INVESTIGATIONS, reviewed in the clinical context: White count 15.7 hemoglobin 14.3 platelets 235 sodium 136 potassium 3.9 BUN 17 creatinine 0.74. Blood glucose 69 Total bilirubin 1.6 AST 126 ALT 162 ProBNP 6330 Coronavirus [PCF]: Not detected 2-D echocardiogram: Moderate concentric LVH. EF less than 20% right ventricle [id number]-[id number] enlargement. Severe pulmonary hypertension EKG tracing personally reviewed by me-sinus tachycardia. Rate 117. Some ST segment changes Chest x-ray film personally reviewed by me-george lindo. Venous prominence. AICD Assessment and plan: -Acute on chronic congestive heart failure exacerbation from nonischemic cardiomyopathy systolic dysfunction EF less than 20% IV Lasix drip. Fluid restriction 1500 mL a day. Strict I's and O's. Toprol. AICD -Acute COPD exacerbation in a current smoker, DuoNeb 4 times a day. Nebulized Pulmicort -Diabetes mellitus type 2 chronically on insulin, uncontrolled with hyperglycemia Levemir 18 units subcu twice a day. Diabetic diet. Accu-Cheks and sliding scale -Hyperlipidemia Lipitor 40 mg daily at bedtime -Essential hypertension Toprol-XL 50 mg a day -Obstructive sleep apnea sometimes uses CPAP machine -Diabetic peripheral neuropathy Cymbalta -Anxiety Celexa, Cymbalta -DJD Tylenol when necessary -Chronic nicotine dependence patient cigarette smoker Nicotine patch 7 -AICD -Chronic left plantar foot wound secondary to diabetes. Consult wound care IV Lasix drip. Strict I's and O's. Fluid restriction. Resume home medications. Follow lites closely. Accu-Cheks. Discussed with the patient. Consult wound care. Given the complexity and severity of patient's condition expect the patient to be in the hospital at least for 2 overnights Past Medical History Past Medical History: Asthma, Coronary Artery Disease (CAD), Chest Pain / Angina, Heart Failure, COPD, Diabetes Mellitus, GERD/Reflux, Hyperlipidemia, Hypertension, Myocardial Infarction ([place]), Pneumonia, Sleep Apnea/CPAP/BIPAP, Sup raventricular Tachycardia (SVT) Additional Past Medical History / Comment(s): Ischemic cardiomyopathy, chronic CHF, SVT, IDDM type II, KAMINI with CPAP occasionally used, chronic cervical/back pain, DJD, diabetic foot wounds x 4 months. Last Myocardial Infarction Date:: 12/11/17 History of Any Multi-Drug Resistant Organisms: MRSA Date of last positivie culture/infection: 03/10/20 MDRO Source:: MRSA TOE Past Surgical History: Adenoidectomy, AICD, Back Surgery, Cholecystectomy, EPS, Heart Catheterization, Pacemaker, Tonsillectomy Additional Past Surgical History / Comment(s): 12/10/17 cardiac cath, previous cardiac cath, 09/02/14 AICD/pacer, EGD/colonoscopy, low back surgery with fusion. Past Anesthesia/Blood Transfusion Reactions: Motion Sickness Additional Past Anesthesia/Blood Transfusion Reaction / Comment(s): Pt states he received blood with back surgery without reaction. Type of Cardiac Device: Permanent Pacemaker, AICD Device Placement Date:: 09-02-14 Past Psychological History: ADD/ADHD, Anxiety Smoking Status: Current every day smoker Past Alcohol Use History: None Reported Past Drug Use History: Marijuana - Past Family History Father Additional Family Medical History / Comment(s): Pt has not kept in close contact with his father for many yrs. Father was an alcoholic and pt believes he has from cirrhosis of the liver. Mother History Unknown: Yes Additional Family Medical History / Comment(s): Pt is not in contact with his mother or his father who he has heard had . Medications and Allergies Home Medications Medication Instructions Recorded Confirmed Type Morphine Sulfate Ir [MSIR] 30 mg PO QID PRN 02/05/19 08/23/21 History DULoxetine HCL [Cymbalta] 60 mg PO BID 11/28/19 08/23/21 History Furosemide [Lasix] 80 mg PO BID 11/28/19 08/23/21 History Metoprolol Succinate [Toprol XL] 50 mg PO DAILY 11/28/19 08/23/21 History Aspirin EC [Ecotrin Low Dose] 81 mg PO DAILY 08/23/21 08/23/21 History Atorvastatin [Lipitor] 40 mg PO HS 08/23/21 08/23/21 History Citalopram Hydrobromide 40 mg PO HS 08/23/21 08/23/21 History Insulin Glargine,Hum.rec.anlog 100 units SQ BID 08/23/21 08/23/21 History [Tounenoo Solostar] Allergies Allergy/AdvReac Type Severity Reaction Status Date / Time azithromycin Allergy Anaphylaxis Verified 08/23/21 08:02 gemfibrozil [From Lopid] Allergy Rash/Hives Verified 08/23/21 08:02 Physical Exam Vitals: Vital Signs Temp Pulse Resp BP Pulse Ox 08/23/21 05:49 115 H 24 122/80 92 L 08/23/21 02:00 117 H 24 124/75 96 08/23/21 00:56 99 16 122/79 93 L 08/22/21 23:06 99.0 F 116 H 23 129/82 95 Intake and Output 08/22/21 08/23/21 08/23/21 22:59 06:59 14:59 Other: Weight 111.13 kg Results CBC & Chem 7: 08/23/21 00:56 08/23/21 00:56 Labs: Abnormal Lab Results - Last 24 Hours (Table) 08/23/21 08/23/21 08/23/21 Range/Units 00:56 00:56 08:24 WBC 15.7 H (3.8-10.6) k/uL Neutrophils # 11.6 H (1.3-7.7) k/uL Monocytes # 2.1 H (0-1.0) k/uL Sodium 136 L (137-145) mmol/L Glucose 69 L (74-99) mg/dL POC Glucose (mg/dL) 152 H (75-99) mg/dL Total Bilirubin 1.6 H (0.2-1.3) mg/dL AST 126 H (17-59) U/L ALT 162 H (4-49) U/L Alkaline Phosphatase 143 H (38-126) U/L Albumin 3.4 L (3.5-5.0) g/dL
[2021-08-23] MEDS: NICOTINE 7MG/24HR PATCH TRANSDERM SCH (16:27)
[2021-08-23] MEDS: ENOXAPARIN 40 MG/0.4 ML SYRINGE SQ SCH (16:27)
[2021-08-23 17:07] LABS: Glucose,Whole Blood 105 mg/dL (75-99)
[2021-08-23] MEDS: MORPHINE SULFATE IR 15 MG TABLET PO PRN (17:08)
[2021-08-23] MEDS: CITALOPRAM HYDROBROMIDE 20 MG TAB PO SCH (20:05)
[2021-08-23] MEDS: ATORVASTATIN 40 MG TAB PO SCH (20:05)
[2021-08-23 20:06] LABS: Glucose,Whole Blood 224 mg/dL (75-99)
[2021-08-23] MEDS: ALPRAZolam 0.25 MG TAB PO PRN (22:20)
[2021-08-24] MEDS: FUROSEMIDE 100 MG in SODIUM CHLORIDE 0.9% 90 ML IV SCH ×2 (02:06→17:43)
[2021-08-24 03:13] LABS: Glucose,Whole Blood 51 mg/dL (75-99)
[2021-08-24 03:29] LABS: Glucose,Whole Blood 51 mg/dL (75-99)
[2021-08-24 03:47] LABS: Glucose,Whole Blood 52 mg/dL (75-99)
[2021-08-24] MEDS ORDERED: DEXTROSE 50% SYRINGE 50 ML IVP ONE (03:48)
[2021-08-24 04:05] LABS: Glucose,Whole Blood 157 mg/dL (75-99)
[2021-08-24 05:59] LABS: Glucose,Whole Blood 135 mg/dL (75-99)
[2021-08-24] MEDS: INSULIN ASPART (NovoLOG) 100 UNIT/ML VIAL SQ SCH ×4 (06:24→20:31)
[2021-08-24] MEDS: BUDESONIDE 1 MG/2 ML NEBU INHALATION SCH ×2 (07:10→20:51)
[2021-08-24] MEDS: IPRATROPIUM-ALBUTEROL 3 ML NEB INHALATION SCH ×4 (07:10→20:51)
[2021-08-24] MEDS: DULoxetine HCL 60 MG CAPSULE.DR PO SCH ×2 (07:55→20:34)
[2021-08-24] MEDS: METOPROLOL SUCCINATE (ER) 50 MG TAB.ER.24H PO SCH (07:55)
[2021-08-24] MEDS: ASPIRIN 81 MG PO SCH (07:55)
[2021-08-24] MEDS: lisinopriL 5 MG TAB PO SCH (07:56)
[2021-08-24] MEDS: ENOXAPARIN 40 MG/0.4 ML SYRINGE SQ SCH (07:56)
[2021-08-24] MEDS: NICOTINE 7MG/24HR PATCH TRANSDERM SCH (07:56)
[2021-08-24] MEDS: INSULIN DETEMIR (LEVEMIR) 100 UNIT/ML SYR SQ SCH ×2 (08:02→20:34)
[2021-08-24] MEDS: MORPHINE SULFATE IR 15 MG TABLET PO PRN ×2 (08:05→17:46)
[2021-08-24 08:48] LABS: African American GFR (CKD) >90 (>60 ml/min/1.73 sqM); Anion Gap 5 mmol/L; Blood Urea Nitrogen 14 mg/dL (9-20); Calcium 8.1 mg/dL (8.4-10.2); Carbon Dioxide 31 mmol/L (22-30); Chloride 98 mmol/L (98-107); Glucose 228 mg/dL (74-99); Non-African American GFR(CKD) >90 (>60 ml/min/1.73 sqM); Potassium 3.6 mmol/L (3.5-5.1); Sodium 134 mmol/L (137-145)
[2021-08-24] MEDS: PIPERACILLIN-TAZOBACTAM 3.375 GM in SODIUM CHLORIDE 0.9% 100 ML IVPB SCH ×2 (11:02→20:21)
[2021-08-24] MEDS: ALPRAZolam 0.25 MG TAB PO PRN ×2 (11:11→20:34)
[2021-08-24] MEDS ORDERED: METOPROLOL SUCCINATE (ER) 50 MG TAB.ER.24H PO STA (11:20)
[2021-08-24 11:53] LABS: Glucose,Whole Blood 147 mg/dL (75-99)
--- NOTE | 2021-08-24 12:00 | XR ---
Left foot HISTORY: Left foot wound 3 views of the left foot, no comparisons There is a fracture dislocation at the fifth metatarsophalangeal joint, bayonet apposition of the pro ximal phalanx dorsally of the fifth digit, there is an associated open wound at this level. Small oss ific fragment noted medially the proximal phalanx of the fifth digit may be showing in particular ext ension. Bone mineralization is reduced. There is soft tissue swelling present. Degenerative changes p resent at the first metatarsophalangeal joint. IMPRESSION: There is a dorsal dislocation at the fifth digit at the metatarsophalangeal joint, sugges tion of the fracture fragment noted medially the proximal phalanx as described. There may be underlyi ng osteomyelitis.
--- NOTE | 2021-08-24 12:08 | P.CONS ---
History of Present Illness - Reason for Consult Consult date: 08/24/21 wound care - History of Present Illness This is a 51-year-old patient known to the wound care center with a history of diabetes, smoking 2 packs a day for the last 30 years, previous diabetic foot ulcer Vailez grade 3. Patient is not been seen in the wound care center for approximately a year. At this time patient presents with a ulceration to the left plantar foot proximal to the fifth digit metatarsal head. Patient also has redness to the dorsal foot at the fourth and fifth metatarsal. Ulceration has a large amount of purulent drainage it is odiferous with increase callus noted to the wound edge. The wound base shows no granulation a significant amount of nonviable necrotic tissue. It appears that the ulceration extends to the bone. Review Of Systems: Constitutional: No fever, no chills, no night sweats. No weight change. No weakness, fatigue or lethargy. No daytime sleepiness. Integumentary:reports wounds, no lesions. No rash or pruritus. No unusual bruising. No change in hair or nails. Physical exam: General Appearance: Alert, cooperative, no distress, appears stated age. Skin: See HPI all other Skin color, texture, tugor normal, no rashes or lesions. Neurologic: Alert oriented x3 Assessment: 1. Diabetic foot ulcer Avilez grade 4 2. Nonhealing ulceration to left plantar foot with bone involvement Plan: 1. Patient would benefit from a surgical debridement. Apply absorptive silver saline moistened gauze dry gauze rolled gauze and secure with paper tape. Nonweightbearing to the left forefoot. We happy to see him in outpatient setting upon discharge. Thank you for the consultation any questions contact the wound care center. DNP note has been reviewed and discussed with Dr. Mora and the impression and plan of care has been directed as dictated. Past Medical History Past Medical History: Asthma, Coronary Artery Disease (CAD), Chest Pain / Angina, Heart Failure, COPD, Diabetes Mellitus, GERD/Reflux, Hyperlipidemia, Hypertension, Myocardial Infarction ([place]), Pneumonia, Sleep Apnea/CPAP/BIPAP, Supraventricular Tachycardia (SVT) Additional Past Medical History / Comment(s): Ischemic cardiomyopathy, chronic CHF, SVT, IDDM type II, KAMINI with CPAP occasionally used, chronic cervical/back pain, DJD, diabetic foot wounds x 4 months. Last Myocardial Infarction Date:: 12/11/17 History of Any Multi-Drug Resistant Organisms: MRSA Year Discovered:: 03/10/20 MDRO Source:: MRSA TOE Past Surgical History: Adenoidectomy, AICD, Back Surgery, Cholecystectomy, EPS, Heart Catheterization, Pacemaker, Tonsillectomy Additional Past Surgical History / Comment(s): 12/10/17 cardiac cath, previous cardiac cath, 09/02/14 AICD/pacer, EGD/colonoscopy, low back surgery with fusion. Past Anesthesia/Blood Transfusion Reactions: Motion Sickness Additional Past Anesthesia/Blood Transfusion Reaction / Comm: Pt states he r eceived blood with back surgery without reaction. Type of Cardiac Device: Permanent Pacemaker, AICD Device Placement Date:: 09-02-14 Past Psychological History: ADD/ADHD, Anxiety Smoking Status: Current every day smoker Past Alcohol Use History: None Reported Past Drug Use History: Marijuana - Past Family History Father Additional Family Medical History / Comment(s): Pt has not kept in close contact with his father for many yrs. Father was an alcoholic and pt believes he has from cirrhosis of the liver. Mother History Unknown: Yes Additional Family Medical History / Comment(s): Pt is not in contact with his mother or his father who he has heard had . Medications and Allergies Home Medications Medication Instructions Recorded Confirmed Type Morphine Sulfate Ir [MSIR] 30 mg PO QID PRN 02/05/19 08/23/21 History DULoxetine HCL [Cymbalta] 60 mg PO BID 11/28/19 08/23/21 History Furosemide [Lasix] 80 mg PO BID 11/28/19 08/23/21 History Metoprolol Succinate [Toprol XL] 50 mg PO DAILY 11/28/19 08/23/21 History Aspirin EC [Ecotrin Low Dose] 81 mg PO DAILY 08/23/21 08/23/21 History Atorvastatin [Lipitor] 40 mg PO HS 08/23/21 08/23/21 History Citalopram Hydrobromide 40 mg PO HS 08/23/21 08/23/21 History Insulin Glargine,Hum.rec.anlog 100 units SQ BID 08/23/21 08/23/21 History [Trudi Bailey] Allergies Allergy/AdvReac Type Severity Reaction Status Date / Time azithromycin Allergy Anaphylaxis Verified 08/23/21 16:59 gemfibrozil [From Lopid] Allergy Rash/Hives Verified 08/23/21 16:59 Physical Exam Vitals: Vital Signs Temp Pulse Pulse Resp BP BP Pulse Ox 08/24/21 11:33 100 08/24/21 11:18 99 08/24/21 11:06 102 H 16 108/70 95 08/24/21 07:54 98.3 F 110 H 16 116/73 94 L 08/24/21 07:31 96 08/24/21 07:11 100 08/24/21 04:00 98.3 F 108 H 18 137/87 95 08/24/21 02:00 108 H 18 08/23/21 23:41 97.6 F 108 H 18 135/75 94 L 08/23/21 20:00 109 H 18 08/23/21 19:59 97.5 F L 109 H 18 115/73 96 08/23/21 19:42 109 H 08/23/21 19:26 96 08/23/21 16:55 98.6 F 111 H 18 125/84 95 08/23/21 16:30 103 H 16 121/89 93 L 08/23/21 15:39 111 H 08/23/21 15:23 110 H Intake and Output 08/23/21 08/24/21 08/24/21 22:59 06:59 14:59 Intake Total 328.5 67.167 240 Output Total 500 750 Balance -171.5 -682.833 240 Intake: Intake, IV Titration 88.5 67.167 Amount Furosemide 100 mg In 88.5 67.167 Sodium Chloride 0.9% 90 ml @ 10 MG/HR 10 mls/hr IV .Q10H [facility] Rx#: [id number] Oral 240 240 Output: Urine 500 750 Other: Voiding Method Urinal Urinal Weight 113 kg Results CBC & Chem 7: 08/23/21 00:56 08/24/21 08:21 Labs: Abnormal Lab Results - Last 24 Hours (Table) 08/23/21 08/23/21 08/23/21 Range/Units 12:00 12:45 17:05 Sodium (137-145) mmol/L Carbon Dioxide (22-30) mmol/L Glucose (74-99) mg/dL POC Glucose (mg/dL) 211 H 250 H 105 H (75-99) mg/dL Calcium (8.4-10.2) mg/dL 08/23/21 08/24/21 08/24/21 Range/Units 20:04 03:12 03:27 Sodium (137-145) mmol/L Carbon Dioxide (22-30) mmol/L Glucose (74-99) mg/dL POC Glucose (mg/dL) 224 H 51 L 51 L (75-99) mg/dL Calcium (8.4-10.2) mg/dL 08/24/21 08/24/21 08/24/21 Range/Units 03:46 04:02 05:57 Sodium (137-145) mmol/L Carbon Dioxide (22-30) mmol/L Glucose (74-99) mg/dL POC Glucose (mg/dL) 52 L 157 H 135 H (75-99) mg/dL Calcium (8.4-10.2) mg/dL 08/24/21 08/24/21 Range/Units 08:21 11:43 Sodium 134 L (137-145) mmol/L Carbon Dioxide 31 H (22-30) mmol/L Glucose 228 H (74-99) mg/dL POC Glucose (mg/dL) 147 H (75-99) mg/dL Calcium 8.1 L (8.4-10.2) mg/dL Assessment and Plan (1) Non-pressure chronic ulcer of other part of left foot with bone involvement without evidence of necrosis Current Visit: Yes Status: Acute Code(s): L97.526 - NON-PRS CHR ULC OTH PRT L FOOT WITH BNE INVL W/O EVD OF NECR SNOMED Code(s): 421621126 (2) Type 2 diabetes mellitus with left diabetic foot ulcer Current Visit: No Status: Acute Code(s): E11.621 - TYPE 2 DIABETES MELLITUS WITH FOOT ULCER; L97.529 - NON-PRESSURE CHRONIC ULCER OTH PRT LEFT FOOT W UNSP SEVERITY SNOMED Code(s): 549961985
[2021-08-24] MEDS: SPIRONOLACTONE 25 MG TAB PO SCH (12:12)
--- NOTE | 2021-08-24 14:00 | P.PN ---
Subjective Progress Note Date: 08/24/21 HISTORY OF PRESENT ILLNESS: This is a pleasant 51-year-old male past medical history significant for mild nonobstructive coronary artery disease, dilated cardiomyopathy, chronic systolic heart failure, status post AICD in 2014, type 2 diabetes, hypertension, dyslipidemia, chronic nicotine dependence, COPD, diabetic foot wounds. He follows in the office with Dr. Abbasi. We have been asked to see in consultation for congestive heart failure. Patient presents emergency department with worsening bilateral lower extremity edema and shortness of breath. He states that for about 2 weeks he has been having symptoms of extremity edema he states that he increased his lasix himself and has some improvement, however, his symptoms worsened again and he decided to come to the emergency department for further evaluation. He has not followed up with Dr. Abbasi since 07/2020. He is having symptoms of orthopnea. He denies chest pain, lightheadedness dizziness, syncope or near syncope. He also endorses a left foot wound that has not healed. DIAGNOSTICS Most recent Echo 01/2020 in the office revealed an EF of 23%, dilated cardiomyopathy, mild mitral regurgitation, mild tricuspid regurgitation EKG reveals sinus tachycardia, heart rate 117, LVH, poor R wave progression, no significant ST ST-T wave abnormalities. Telemetry tracings indicate sinus mechanism HR 110-120 Chest xray vascular congestion Current home medications include atorvastatin 40 mg nightly, Lasix 80 mg twice a day, Toprol succinate 50 mg daily, aspirin 81 mg daily Lasix, WBC 15.7, hemoglobin 14.3, platelets 235, sodium 136, potassium 3.9, BUN 17, serum creatinine 0.7, magnesium 2.0, proBNP 6230, COVID-19 negative Most recent cardiac catheterization 11/2017 revealed minimal coronary artery disease with mild irregularities in the RCA and mid LAD 08/24/2021 Patient examined this morning at the bedside. Patient denies chest pain or pressure. He currently denies shortness of breath. He continues to have lower extremity edema. He is maintained on a Lasix drip at 10 mg an hour. Patient has mildly tachycardic this morning. Blood pressure 116/73. Kidney function stable with a creatinine of 0.82. Echocardiogram completed revealing ejection fraction less than 20%, mild mitral regurgitation, mild tricuspid regurgitation, and severe pulmonary hypertension. PHYSICAL EXAM: VITAL SIGNS: Reviewed. GENERAL: Well-developed in no acute distress. NECK: Supple. No JVD or thyromegaly LUNGS: Respirations even and unlabored. Lungs essentially clear to auscultation bilaterally. HEART: Regular rate and rhythm. S1 and S2 heard. Systolic murmur noted. EXTREMITIES: Normal range of motion. No clubbing or cyanosis. Peripheral pulses intact. 3+ bilateral lower extremity edema ASSESSMENT: Acute on chronic Heart failure with reduced ejection fraction, systolic Dilated, nonischemic cardiomyopathy status post AICD implantation in 2014 Type 2 diabetes Hypertension Dyslipidemia Chronic nicotine dependence COPD Diabetic foot wound Leukocytosis PLAN: Continue current cardiac medications Continue IV Lasix infusion Monitor kidney function Accurate I&O Daily weights Increase metoprolol succinate 100 mg daily. Given additional dose of 50 mg now Add Aldactone 25 mg daily Further recommendations pending patient course Nurse practitioner note has been reviewed by physician. Signing provider agrees with the documented findings, assessment, and plan of care. Objective - Vital Signs Vital signs: Vital Signs Temp 98.3 F 08/24/21 07:54 Pulse 100 08/24/21 11:33 Resp 16 08/24/21 11:06 BP 108/70 08/24/21 11:06 Pulse Ox 95 08/24/21 11:06 Intake & Output 08/23/21 08/24/21 08/24/21 18:59 06:59 18:59 Intake Total 240 155.667 240 Output Total 400 1250 Balance -160 -1094.333 240 Weight 111.13 kg 113 kg Intake: Intake, IV Titration 155.667 Amount Furosemide 100 mg In 155.667 Sodium Chloride 0.9% 90 ml @ 10 MG/HR 10 mls/hr IV .Q10H [facility] Rx#: [id number] Oral 240 240 Output: Urine 400 1250 Other: Voiding Method Urinal - Labs CBC & Chem 7: 08/23/21 00:56 08/24/21 08:21 Labs: Abnormal Lab Results - Last 24 Hours (Table) 08/23/21 08/23/21 08/24/21 Range/Units 17:05 20:04 03:12 Sodium (137-145) mmol/L Carbon Dioxide (22-30) mmol/L Glucose (74-99) mg/dL POC Glucose (mg/dL) 105 H 224 H 51 L (75-99) mg/dL Calcium (8.4-10.2) mg/dL 08/24/21 08/24/21 08/24/21 Range/Units 03:27 03:46 04:02 Sodium (137-145) mmol/L Carbon Dioxide (22-30) mmol/L Glucose (74-99) mg/dL POC Glucose (mg/dL) 51 L 52 L 157 H (75-99) mg/dL Calcium (8.4-10.2) mg/dL 08/24/21 08/24/21 08/24/21 Range/Units 05:57 08:21 11:43 Sodium 134 L (137-145) mmol/L Carbon Dioxide 31 H (22-30) mmol/L Glucose 228 H (74-99) mg/dL POC Glucose (mg/dL) 135 H 147 H (75-99) mg/dL Calcium 8.1 L (8.4-10.2) mg/dL
--- NOTE | 2021-08-24 14:35 | P.GSCN ---
History of Present Illness Consult date: 08/24/21 Reason for Consult: Left foot wound Requesting physician: Buck Johnson History of present illness: A 51-year-old male who presented to the emergency department with complaints of swelling to his lower extremities and left foot. He has multiple comorbidities including asthma, coronary artery disease, heart failure, COPD, diabetes, hypertension, hyperlipidemia and tobacco dependence and chronic diabetic wounds. The patient has had lateral foot wounds and had been seen in the wound care clinic approximately 1 year ago. He was casted at one point. He states the left wound had healed and he was discharged from the wound center. He states approximately 2 weeks ago he started to notice that his left foot wound returned and was increasing in size and drainage. Also had increased swelling redness. Is afebrile on admission. He denies any fevers or chills. He has had no recent follow-up with the wound center or his primary care physician. Review of Systems 14 point review of systems was completed all pertinent positives and negatives as stated in the HPI Past Medical History Past Medical History: Asthma, Coronary Artery Disease (CAD), Chest Pain / Angina, Heart Failure, COPD, Diabetes Mellitus, GERD/Reflux, Hyperlipidemia, Hypertension, Myocardial Infarction (ID), Pneumonia, Sleep Apnea/CPAP/BIPAP, Supraventricular Tachycardia (SVT) Additional Past Medical History / Comment(s): Ischemic cardiomyopathy, chronic CHF, SVT, IDDM type II, KAMINI with CPAP occasionally used, chronic cervical/back pain, DJD, diabetic foot wounds x 4 months. Last Myocardial Infarction Date:: 12/11/17 History of Any Multi-Drug Resistant Organisms: MRSA Year Discovered:: 03/10/20 MDRO Source:: MRSA TOE Past Surgical History: Adenoidectomy, AICD, Back Surgery, Cholecystectomy, EPS, Heart Catheterization, Pacemaker, Tonsillectomy Additional Past Surgical History / Comment(s): 12/10/17 cardiac cath, previous cardiac cath, 09/02/14 AICD/pacer, EGD/colonoscopy, low back surgery with fusion. Past Anesthesia/Blood Transfusion Reactions: Motion Sickness Additional Past Anesthesia/Blood Transfusion Reaction / Comm: Pt states he rec eived blood with back surgery without reaction. Type of Cardiac Device: Permanent Pacemaker, AICD Device Placement Date:: 09-02-14 Past Psychological History: ADD/ADHD, Anxiety Smoking Status: Current every day smoker Past Alcohol Use History: None Reported Past Drug Use History: Marijuana - Past Family History Father Additional Family Medical History / Comment(s): Pt has not kept in close contact with his father for many yrs. Father was an alcoholic and pt believes he has from cirrhosis of the liver. Mother History Unknown: Yes Additional Family Medical History / Comment(s): Pt is not in contact with his mother or his father who he has heard had . Medications and Allergies Home Medications Medication Instructions Recorded Confirmed Type Morphine Sulfate Ir [MSIR] 30 mg PO QID PRN 02/05/19 08/23/21 History DULoxetine HCL [Cymbalta] 60 mg PO BID 11/28/19 08/23/21 History Furosemide [Lasix] 80 mg PO BID 11/28/19 08/23/21 History Metoprolol Succinate [Toprol XL] 50 mg PO DAILY 11/28/19 08/23/21 History Aspirin EC [Ecotrin Low Dose] 81 mg PO DAILY 08/23/21 08/23/21 History Atorvastatin [Lipitor] 40 mg PO HS 08/23/21 08/23/21 History Citalopram Hydrobromide 40 mg PO HS 08/23/21 08/23/21 History Insulin Glargine,Hum.rec.anlog 100 units SQ BID 08/23/21 08/23/21 History [Toujeo Solostar] Allergies Allergy/AdvReac Type Severity Reaction Status Date / Time azithromycin Allergy Anaphylaxis Verified 08/23/21 16:59 gemfibrozil [From Lopid] Allergy Rash/Hives Verified 08/23/21 16:59 Surgical - Exam Vital Signs Temp Pulse Resp BP Pulse Ox 99.0 F 116 H 23 129/82 95 08/22/21 23:06 08/22/21 23:06 08/22/21 23:06 08/22/21 23:06 08/22/21 23:06 General appearance: The patient is alert, oriented, appears in no acute distress. HET: Head is normocephalic and atraumatic. Pupils are equal and reactive. Neck: Supple without lymphadenopathy. Trachea midline. No audible carotid bruit. Heart: S1 S2. Regular rate and rhythm. Lungs: Clear to auscultation bilaterally. Abdomen: Soft, nontender, nondistended. Extremities: Bilateral lower extremity edema. Bilateral feet with callusing and dry skin thick yellow toenails. Left foot with edema, erythema to the dorsal aspect. Diabetic wound to the lateral aspect of the left foot near the fifth me tatarsal with tunneling, purlulent drainage, pale nonviable tissue in owund bed, and foul odor. Neurological: No focal deficits. Alert and oriented 3. Results - Labs 08/23/21 00:56 08/24/21 08:21 Abnormal Lab Results - Last 24 Hours (Table) 08/23/21 08/23/21 08/23/21 Range/Units 12:00 12:45 17:05 Sodium (137-145) mmol/L Carbon Dioxide (22-30) mmol/L Glucose (74-99) mg/dL POC Glucose (mg/dL) 211 H 250 H 105 H (75-99) mg/dL Calcium (8.4-10.2) mg/dL 08/23/21 08/24/21 08/24/21 Range/Units 20:04 03:12 03:27 Sodium (137-145) mmol/L Carbon Dioxide (22-30) mmol/L Glucose (74-99) mg/dL POC Glucose (mg/dL) 224 H 51 L 51 L (75-99) mg/dL Calcium (8.4-10.2) mg/dL 08/24/21 08/24/21 08/24/21 Range/Units 03:46 04:02 05:57 Sodium (137-145) mmol/L Carbon Dioxide (22-30) mmol/L Glucose (74-99) mg/dL POC Glucose (mg/dL) 52 L 157 H 135 H (75-99) mg/dL Calcium (8.4-10.2) mg/dL 08/24/21 Range/Units 08:21 Sodium 134 L (137-145) mmol/L Carbon Dioxide 31 H (22-30) mmol/L Glucose 228 H (74-99) mg/dL POC Glucose (mg/dL) (75-99) mg/dL Calcium 8.1 L (8.4-10.2) mg/dL Diabetes panel 08/24/21 Range/Units 08:21 Sodium 134 L (137-145) mmol/L Potassium 3.6 (3.5-5.1) mmol/L Chloride 98 (98-107) mmol/L Carbon Dioxide 31 H (22-30) mmol/L BUN 14 (9-20) mg/dL Creatinine 0.82 (0.66-1.25) mg/dL Glucose 228 H (74-99) mg/dL Calcium 8.1 L (8.4-10.2) mg/dL Calcium panel 08/24/21 Range/Units 08:21 Calcium 8.1 L (8.4-10.2) mg/dL Pituitary panel 08/24/21 Range/Units 08:21 Sodium 134 L (137-145) mmol/L Potassium 3.6 (3.5-5.1) mmol/L Chloride 98 (98-107) mmol/L Carbon Dioxide 31 H (22-30) mmol/L BUN 14 (9-20) mg/dL Creatinine 0.82 (0.66-1.25) mg/dL Glucose 228 H (74-99) mg/dL Calcium 8.1 L (8.4-10.2) mg/dL Adrenal panel 08/24/21 Range/Units 08:21 Sodium 134 L (137-145) mmol/L Potassium 3.6 (3.5-5.1) mmol/L Chloride 98 (98-107) mmol/L Carbon Dioxide 31 H (22-30) mmol/L BUN 14 (9-20) mg/dL Creatinine 0.82 (0.66-1.25) mg/dL Glucose 228 H (74-99) mg/dL Calcium 8.1 L (8.4-10.2) mg/dL - Imaging Comments: Left foot x-ray: There is dorsal dislocation at the fifth digit at the metatarsal phalangeal joint, suggestion of fracture fragment noted medially the proximal phalanx as described. There may be underlying osteomyelitis. Assessment and Plan Assessment: 1. Diabetic ulcer to the left foot 2. Possible osteomyelitis 3. Diabetes mellitus with neuropathy 4. History of coronary artery disease 5. History of congestive heart failure 6. Tobacco dependence to 2 packs per day Plan: 1. X-ray left foot ordered 2. IV Zosyn ordered 3. Continue local wound care per wound clinic recommendations 4. Plan for surgical debridement with possible amputation of fourth and fifth toes, timing to be determined Thank you for this consultation, and allowing us take part in the plan of care of your patient during his hospital stay. The impression and plan of care has been dictated as directed. Dr. Trent I performed a history and examination of this patient, discussed the same with the dictator. I agree with the dictator's note ,documented as a scribe. Any additional findings or plans will be noted.
[2021-08-24 16:47] LABS: Glucose,Whole Blood 90 mg/dL (75-99)
--- NOTE | 2021-08-24 19:00 | P.PN ---
Progress Note - Text Progress Note Date: 08/24/21 Chief Complaint: Abdominal pain History of presenting complaint: This is a pleasant 51-year-old patient of Dr. Hany Rodríguez. Chronic stable medical conditions include nonischemic CHF EF less than 20%, COPD, diabetes, GERD, hypertension, hyperlipidemia, obstructive sleep apnea with CPAP, AICD and a pacemaker. Patient lives with his 20-year-old son. Normally uses a cane to get about. did drink heavily in the past and quit 20 years ago. Still an active smoker. Patient now presents for noticing increasing swelling in the lower extremity. At least for 2 weeks. Normally uses 2 pillows. Some persistent supple disease. More orthopnea. Has a cough. No sputum. No fever no chills. Decreased appetite. More short of breath. Some wheezing. Patient also has a wound on the left foot for which she followed at the wound care center. Denies any drainage. But wants it to be looked at. Patient has continued to smoke. Admitted with acute CHF exacerbation EF less than 20%-put on Lasix drip, acute COPD exacerbation-put on DuoNeb and nebulized steroids, diabetic foot wound for which vascular and wound care consulted. August 24: About 1200 mL negative fluid balance. Sitting at the edge of the bed. Shortness of breath. foot wound is rather deep. Vascular has been consulted. On IV Zosyn. Fredy wrap for lower extremity. Eating well. Morning dose of Levemir was held Review of systems: Was done for constitutional, cardiovascular, GI, pulmonary. relevant finding as above Active Medications Acetaminophen (Acetaminophen Tab 325 Mg Tab) 650 mg PO Q6HR PRN PRN Reason: Mild Pain or Fever > 100.5 Albuterol/Ipratropium (Ipratropium-Albuterol 3 Ml Neb) 3 ml INHALATION RT-QID [facility] Last Admin: 08/24/21 16:50 Dose: 3 ml Documented by: Alprazolam (Alprazolam 0.25 Mg Tab) 0.25 mg PO Q6HR PRN PRN Reason: Anxiety Last Admin: 08/24/21 11:11 Dose: 0.25 mg Documented by: Aspirin (Aspirin 81 Mg) 81 mg PO DAILY [facility] Last Admin: 08/24/21 07:55 Dose: 81 mg Documented by: Atorvastatin Calcium (Atorvastatin 40 Mg Tab) 40 mg PO HS [facility] Last Admin: 08/23/21 20:05 Dose: 40 mg Documented by: Budesonide (Budesonide 1 Mg/2 Ml Nebu) 1 mg INHALATION RT-BID [facility] Last Admin: 08/24/21 07:10 Dose: 1 mg Documented by: Calcium Carbonate/Glycine (Calcium Carbonate 500 Mg Chewable) 1,000 mg PO Q4HR PRN PRN Reason: Dyspepsia Citalopram Hydrobromide (Citalopram Hydrobromide 20 Mg Tab) 40 mg PO [facility] Last Admin: 08/23/21 20:05 Dose: 40 mg Documented by: Duloxetine HCl (Duloxetine Hcl 60 Mg Capsule.Dr) 60 mg PO BID [facility] Last Admin: 08/24/21 07:55 Dose: 60 mg Documented by: Enoxaparin Sodium (Enoxaparin 40 Mg/0.4 Ml Syringe) 40 mg SQ DAILY [facility] Last Admin: 08/24/21 07:56 Dose: 40 mg Documented by: Furosemide 100 mg/ Sodium (Chloride) 100 mls @ 10 mls/hr IV .Q10H [facility] Last Admin: 08/24/21 17:43 Dose: 10 mg/hr, 10 mls/hr Documented by: Piperacillin Sod/Tazobactam (Sod 3.375 gm/ Sodium Chloride) 100 mls @ 25 mls/hr IVPB Q8H [facility] Last Admin: 08/24/21 11:02 Dose: 25 mls/hr Documented by: Insulin Aspart (Insulin Aspart (Novolog) 100 Unit/Ml Vial) 0 unit SQ ACHS [facility]; Protocol Last Admin: 08/24/21 17:42 Dose: Not Given Documented by: Insulin Detemir (Insulin Detemir (Levemir) 100 Unit/Ml Syr) 80 unit SQ BID [facility] Last Admin: 08/24/21 08:02 Dose: Not Given Documented by: Lactulose (Lactulose 20 Gm/30 Ml Cup) 20 gm PO DAILY PRN PRN Reason: Constipation Lisinopril (Lisinopril 5 Mg Tab) 5 mg PO DAILY [facility] Last Admin: 08/24/21 07:56 Dose: 5 mg Documented by: Melatonin (Melatonin 3 Mg Tablet) 3 mg PO HS PRN PRN Reason: Insomnia Metoprolol Succinate (Metoprolol Succinate (Er) 50 Mg Tab.Er.24h) 100 mg PO DAILY [facility] Morphine Sulfate (Morphine Sulfate Ir 15 Mg Tablet) 30 mg PO QID PRN PRN Reason: Pain Last Admin: 08/24/21 17:46 Dose: 30 mg Documented by: Naloxone HCl (Naloxone 0.4 Mg/Ml 1 Ml Vial) 0.2 mg IV Q2M PRN PRN Reason: Opioid Reversal Nicotine (Nicotine 7mg/24hr Patch) 1 patch TRANSDERM DAILY [facility] Last Admin: 08/24/21 07:56 Dose: 1 patch Documented by: Ondansetron HCl (Ondansetron 4 Mg/2 Ml Vial) 4 mg IVP Q8HR PRN PRN Reason: Nausea And Vomiting Spironolactone (Spironolactone 25 Mg Tab) 25 mg PO DAILY [facility] Last Admin: 08/24/21 12:12 Dose: 25 mg Documented by: Past medical history to include: COPD, CHF-EF 20%, diabetes, GERD, hyperlipidemia, hypertension,(s) sleep apnea uses CPAP sometimes, ischemic cardiomyopathy, chronic cervical back pain and DJD, diabetic foot wounds Social history: Lives with his 20 -year-old son. Does use a cane. Disabled. 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 Been smoking 2 packs a day for most of his life now down to quarter pack a day. Heavy drinking in the past quit 20 years ago. 4 hits of marijuana nightly. Family history: Reviewed, noncontributory to presentation Physical examination: VITAL SIGNS: Afebrile, 73, 20, 140/71, 96% room air GENERAL: , sitting at the age of the bed, less short of breath. EYES: Pupils equal. Conjunctiva normall. HEENT: External appearance of nose and ears normal, oral cavity grossly normal. NECK: JVD unable to assess; masses not palpable. HEART: First and second heart sounds are normal; edema present. LUNGS: Respiratory rate increased; diminished breath sounds prolonged expiration. ABDOMEN: Soft, mild distention nontender, liver spleen not palpable, no masses palpable. PSYCH: Alert and oriented x3; mood and affect anxiousl. MUSCULOSKELETAL:No Clubbing/cyanosis;muscles-grossly intact DERMATOLOGICAL: Wound on the plantar surface of left foot. Ichthyosis especially lower extremity bilateral NEUROLOGICAL: Cranial nerves grossly intact; no facial asymmetry, power and sensation grossly intact. INVESTIGATIONS, reviewed in the clinical context: August 24: Sodium 134 potassium 3.6 creatinine 0.82 Left foot x-ray: Dorsal dislocation at the fifth digit at the MTP joint. Questionable osteomyelitis/fracture fragment White count 15.7 hemoglobin 14.3 platelets 235 sodium 136 potassium 3.9 BUN 17 creatinine 0.74. Blood glucose 69 Total bilirubin 1.6 AST 126 ALT 162 ProBNP 6330 Coronavirus PCF: Not detected 2-D echocardiogram: Moderate concentric LVH. EF less than 20% right ventricle [id number] enlargement. Severe pulmonary hypertension EKG tracing personally reviewed by me-sinus tachycardia. Rate 117. Some ST segment changes Chest x-ray film personally reviewed by me-george lindo. Venous prominence. AICD Assessment and plan: -Acute on chronic congestive heart failure exacerbation from nonischemic cardiomyopathy systolic dysfunction EF less than 20%: Slow to respond IV Lasix drip. Fluid restriction 1500 mL Strict I's and O's. Toprol. Aldactone AICD -Acute COPD exacerbation in a current smoker: Slow to respond, DuoNeb 4 times a day. Nebulized Pulmicort -Diabetes mellitus type 2 chronically on insulin, uncontrolled with hyperglycemia Decrease Levemir 40 units subcu twice a day. Diabetic diet. Accu-Cheks and sliding scale -Hyperlipidemia Lipitor 40 mg daily at bedtime -Essential hypertension Toprol-XL 50 mg a day -Obstructive sleep apnea sometimes uses CPAP machine -Diabetic peripheral neuropathy Cymbalta -Anxiety Celexa, Cymbalta -DJD Tylenol when necessary -Chronic nicotine dependence patient cigarette smoker Nicotine patch 7 -AICD -Acute on Chronic left plantar diabetic foot wound : Slow to respond. Follow with vascular. Consult ID. IV Zosyn Continue IV Lasix drip. Change Levemir to 40 units subcu twice a day. Continue with DuoNeb and Pulmicort. IV Zosyn. Consult ID. Follow with vascular. Patient will need surgical intervention to the foot.
[2021-08-24 20:31] LABS: Glucose,Whole Blood 117 mg/dL (75-99)
[2021-08-24] MEDS: CITALOPRAM HYDROBROMIDE 20 MG TAB PO SCH (20:34)
[2021-08-24] MEDS: ATORVASTATIN 40 MG TAB PO SCH (20:34)
[2021-08-25] MEDS: FUROSEMIDE 100 MG in SODIUM CHLORIDE 0.9% 90 ML IV SCH ×3 (02:24→20:48)
[2021-08-25] MEDS: PIPERACILLIN-TAZOBACTAM 3.375 GM in SODIUM CHLORIDE 0.9% 100 ML IVPB SCH ×3 (03:16→18:25)
[2021-08-25 06:20] LABS: Glucose,Whole Blood 75 mg/dL (75-99)
[2021-08-25] MEDS: INSULIN ASPART (NovoLOG) 100 UNIT/ML VIAL SQ SCH ×4 (06:30→20:42)
[2021-08-25] MEDS: IPRATROPIUM-ALBUTEROL 3 ML NEB INHALATION SCH ×4 (07:36→20:59)
[2021-08-25] MEDS: BUDESONIDE 1 MG/2 ML NEBU INHALATION SCH ×2 (07:36→20:59)
[2021-08-25 08:02] LABS: Calcium 8.3 mg/dL (8.4-10.2); Magnesium 2.2 mg/dL (1.6-2.3); Potassium 3.8 mmol/L (3.5-5.1)
[2021-08-25 08:11] LABS: HCT 43.9 % (39.0-53.0); HGB 13.4 gm/dL (13.0-17.5); Hypochromasia Marked; MCH 27.1 pg (25.0-35.0); MCHC 30.4 g/dL (31.0-37.0); Mean Platelet Volume 8.1; Platelet Count 236 k/uL (150-450); RBC 4.93 m/uL (4.30-5.90); RDW 15.1 % (11.5-15.5); WBC 11.7 k/uL (3.8-10.6)
[2021-08-25] MEDS: NICOTINE 7MG/24HR PATCH TRANSDERM SCH (08:28)
[2021-08-25] MEDS: ASPIRIN 81 MG PO SCH (08:28)
[2021-08-25] MEDS: METOPROLOL SUCCINATE (ER) 50 MG TAB.ER.24H PO SCH (08:29)
[2021-08-25] MEDS: MORPHINE SULFATE IR 15 MG TABLET PO PRN ×2 (08:30→18:22)
[2021-08-25] MEDS: SPIRONOLACTONE 25 MG TAB PO SCH (08:30)
[2021-08-25] MEDS: DULoxetine HCL 60 MG CAPSULE.DR PO SCH ×2 (08:30→20:42)
[2021-08-25] MEDS: ENOXAPARIN 40 MG/0.4 ML SYRINGE SQ SCH (08:30)
[2021-08-25 08:39] LABS: Glucose,Whole Blood 98 mg/dL (75-99)
--- NOTE | 2021-08-25 11:21 | P.PN ---
Subjective This is a pleasant 51-year-old patient of Dr. Hany Rodríguez. Chronic stable medical conditions include nonischemic CHF EF less than 20%, COPD, diabetes, GERD, hypertension, hyperlipidemia, obstructive sleep apnea with CPAP, AICD and a pacemaker. Patient lives with his 20-year-old son. Normally uses a cane to get about. did drink heavily in the past and quit 20 years ago. Still an active smoker. Patient now presents for noticing increasing swelling in the lower extremity. At least for 2 weeks. Normally uses 2 pillows. Some persistent supple disease. More orthopnea. Has a cough. No sputum. No fever no chills. Decreased appetite. More short of breath. Some wheezing. Patient also has a wound on the left foot for which she followed at the wound care center. Denies any drainage. But wants it to be looked at. Patient has continued to smoke. Admitted with acute CHF exacerbation EF less than 20%-put on Lasix drip, acute COPD exacerbation-put on DuoNeb and nebulized steroids, diabetic foot wound for which vascular and wound care consulted. August 24: About 1200 mL negative fluid balance. Sitting at the edge of the bed. Shortness of breath. foot wound is rather deep. Vascular has been consulted. On IV Zosyn. Fredy wrap for lower extremity. Eating well. Morning dose of Levemir was held 08/25/2021 Patient is with severe CHF less than 20% ejection fraction presents with left foot infected wound [while he is diabetic and there was evidence of fracture of the fifth metatarsophalangeal joint, vascular surgery on the case and patient possibly will go for debridement of his left fourth and fifth toe. Also there is a possible evidence of osteomyelitis. Other comorbidities including severe pulmonary hypertension and dilated nonischemic cardiomyopathy status post AICD. Patient possibly going for debridement today. He was been nothing by mouth on his sugar was on the low side therefore his Levemir was lowered from 100 units twice a day count to 40 units at bedtime. Leukocytosis morning was 7100. Glucose was 98. CT is improving, LFTs mildly elevated. Hemoglobin A1c and poorcalcitonin are pending. His metoprolol was increased to 100 mg daily compared to 50 mg at home by cardiology team. Objective - Vital Signs Vital signs: Vital Signs Temp 97.9 F 08/25/21 08:00 Pulse 88 08/25/21 08:00 Resp 16 01/28/22 08:00 BP 111/64 08/25/21 08:00 Pulse Ox 93 L 08/25/21 08:00 Intake & Output 08/24/21 08/25/21 08/25/21 18:59 06:59 18:59 Intake Total 580 86.833 500 Output Total 875 950 Balance -295 -863.167 500 Weight 113 kg 112.9 kg Intake: Intake, IV Titration 100 86.833 Amount Furosemide 100 mg In 100 86.833 Sodium Chloride 0.9% 90 ml @ 10 MG/HR 10 mls/hr IV .Q10H LAN Rx#: [id number] Oral 480 500 Output: Urine 875 950 Other: Voiding Method Urinal - Exam GENERAL: The patient is alert and oriented x3, not in any acute distress. Well developed, well nourished. HEENT: Pupils are round and equally reacting to light. EOMI. No scleral icterus. No conjunctival pallor. Normocephalic, atraumatic. No pharyngeal erythema. No thyromegaly. CARDIOVASCULAR: S1 and S2 present. No murmurs, rubs, or gallops. PULMONARY: Chest is clear to auscultation, no wheezing or crackles. ABDOMEN: Soft, nontender, nondistended, normoactive bowel sounds. No palpable organomegaly. MUSCULOSKELETAL: No joint swelling or deformity. -EXTREMITIES: No cyanosis, clubbing, or pedal edema. Left foot wound with a dressing. Left leg cellulitis, pinkish in color. Slightly warm compared to the right side. 3+ bilateral pitting leg edema NEUROLOGICAL: Gross neurological examination did not reveal any focal deficits. SKIN: No rashes. no petechiae. - Labs CBC & Chem 7: 08/25/21 06:57 08/25/21 06:57 Labs: Abnormal Lab Results - Last 24 Hours (Table) 08/24/21 08/24/21 08/25/21 Range/Units 11:43 20:26 06:57 WBC 11.7 H (3.8-10.6) k/uL MCHC 30.4 L (31.0-37.0) g/dL Carbon Dioxide (22-30) mmol/L BUN (9-20) mg/dL Glucose (74-99) mg/dL POC Glucose (mg/dL) 147 H 117 H (75-99) mg/dL Calcium (8.4-10.2) mg/dL 08/25/21 Range/Units 06:57 WBC (3.8-10.6) k/uL MCHC (31.0-37.0) g/dL Carbon Dioxide 36 H (22-30) mmol/L BUN 22 H (9-20) mg/dL Glucose 71 L (74-99) mg/dL POC Glucose (mg/dL) (75-99) mg/dL Calcium 8.3 L (8.4-10.2) mg/dL Assessment and Plan Assessment: -Acute on chronic congestive heart failure exacerbation from nonischemic cardiomyopathy systolic dysfunction EF less than 20%: Slow to respond IV Lasix drip. Fluid restriction 1500 mL Strict I's and O's. Toprol. Aldactone AICD -Acute on Chronic left plantar diabetic foot wound : Slow to respond. Follow with vascular. Consult ID. IV Zosyn possible debridement by vascular surgery team on 08/25 Consult ID team -Acute COPD exacerbation in a current smoker: Slow to respond, DuoNeb 4 times a day. Nebulized Pulmicort -Diabetes mellitus type 2 chronically on insulin, uncontrolled with hyperglycemia Decrease Levemir 40 units subcu twice a day. Diabetic diet. Accu-Cheks and sliding scale -Hyperlipidemia Lipitor 40 mg daily at bedtime -Essential hypertension Toprol-XL 50 mg a day -Obstructive sleep apnea sometimes uses CPAP machine -Diabetic peripheral neuropathy Cymbalta -Anxiety Celexa, Cymbalta -DJD Tylenol when necessary -Chronic nicotine dependence patient cigarette smoker Nicotine patch 7 -AICD
[2021-08-25 11:39] LABS: Glucose,Whole Blood 77 mg/dL (75-99)
[2021-08-25 12:22] LABS: Glucose,Whole Blood 70 mg/dL (75-99)
[2021-08-25] MEDS ORDERED: LACTATED RINGERS 1,000 ML IV ONE (12:27)
--- NOTE | 2021-08-25 13:01 | P.PN ---
Subjective Progress Note Date: 08/25/21 HISTORY OF PRESENT ILLNESS: This is a pleasant 51-year-old male past medical history significant for mild nonobstructive coronary artery disease, dilated cardiomyopathy, chronic systolic heart failure, status post AICD in 2014, type 2 diabetes, hypertension, dyslipidemia, chronic nicotine dependence, COPD, diabetic foot wounds. He follows in the office with Dr. Abbasi. We have been asked to see in consultation for congestive heart failure. Patient presents emergency department with worsening bilateral lower extremity edema and shortness of breath. He states that for about 2 weeks he has been having symptoms of extremity edema he states that he increased his lasix himself and has some improvement, however, his symptoms worsened again and he decided to come to the emergency department for further evaluation. He has not followed up with Dr. Abbasi since 07/2020. He is having symptoms of orthopnea. He denies chest pain, lightheadedness dizziness, syncope or near syncope. He also endorses a left foot wound that has not healed. DIAGNOSTICS Most recent Echo 01/2020 in the office revealed an EF of 23%, dilated cardiomyopathy, mild mitral regurgitation, mild tricuspid regurgitation EKG reveals sinus tachycardia, heart rate 117, LVH, poor R wave progression, no significant ST ST-T wave abnormalities. Telemetry tracings indicate sinus mechanism HR 110-120 Chest xray vascular congestion Current home medications include atorvastatin 40 mg nightly, Lasix 80 mg twice a day, Toprol succinate 50 mg daily, aspirin 81 mg daily Lasix, WBC 15.7, hemoglobin 14.3, platelets 235, sodium 136, potassium 3.9, BUN 17, serum creatinine 0.7, magnesium 2.0, proBNP 6230, COVID-19 negative Most recent cardiac catheterization 11/2017 revealed minimal coronary artery disease with mild irregularities in the RCA and mid LAD 08/24/2021 Patient examined this morning at the bedside. Patient denies chest pain or pressure. He currently denies shortness of breath. He continues to have lower extremity edema. He is maintained on a Lasix drip at 10 mg an hour. Patient has mildly tachycardic this morning. Blood pressure 116/73. Kidney function stable with a creatinine of 0.82. Echocardiogram completed revealing ejection fraction less than 20%, mild mitral regurgitation, mild tricuspid regurgitation, and severe pulmonary hypertension. 08/25/2021 Patient examined this morning at the bedside. Patient denies chest pain or pressure. Currently denying tenderness of breath. He continues to report lower extremity edema which he does not feel as improved since yesterday. He is maintained on a Lasix drip at 10 mg an hour. Kidney function remains stable with a creatinine of 1.19. Fluid balance over the last 24 hours is -1158 mL. Vital signs are stable. PHYSICAL EXAM: VITAL SIGNS: Reviewed. GENERAL: Well-developed in no acute distress. NECK: Supple. No JVD or thyromegaly LUNGS: Respirations even and unlabored. Lungs essentially clear to auscultation bilaterally. HEART: Regular rate and rhythm. S1 and S2 heard. Systolic murmur noted. EXTREMITIES: Normal range of motion. No clubbing or cyanosis. Peripheral pulses intact. 3+ bilateral lower extremity edema ASSESSMENT: Acute on chronic Heart failure with reduced ejection fraction, systolic Dilated, nonischemic cardiomyopathy status post AICD implantation in 2014 Type 2 diabetes Hypertension Dyslipidemia Chronic nicotine dependence COPD Diabetic foot wound Leukocytosis PLAN: Continue current cardiac medications Continue IV Lasix infusion Monitor kidney function Accurate I&O Daily weights Further recommendations pending patient course Nurse practitioner note has been reviewed by physician. Signing provider agrees with the documented findings, assessment, and plan of care. Objective - Vital Signs Vital signs: Vital Signs Temp 97.0 F L 08/25/21 12:15 Pulse 81 08/25/21 12:15 Resp 16 08/25/21 12:15 BP 106/70 08/25/21 12:15 Pulse Ox 95 08/25/21 12:15 Intake & Output 08/24/21 08/25/21 08/25/21 18:59 06:59 18:59 Intake Total 580 86.833 595.167 Output Total 875 950 850 Balance -295 -863.167 -254.833 Weight 113 kg 112.9 kg Intake: Intake, IV Titration 100 86.833 95.167 Amount Furosemide 100 mg In 100 86.833 95.167 Sodium Chloride 0.9% 90 ml @ 10 MG/HR 10 mls/hr IV .Q10H LAN Rx#: [id number] Oral 480 500 Output: Urine 875 950 850 Other: Voiding Method Urinal # Voids 1 - Labs CBC & Chem 7: 08/25/21 06:57 08/25/21 06:57 Labs: Abnormal Lab Results - Last 24 Hours (Table) 08/24/21 08/25/21 08/25/21 Range/Units 20:26 06:57 06:57 WBC 11.7 H (3.8-10.6) k/uL MCHC 30.4 L (31.0-37.0) g/dL Carbon Dioxide (22-30) mmol/L BUN (9-20) mg/dL Glucose (74-99) mg/dL POC Glucose (mg/dL) 117 H (75-99) mg/dL Calcium (8.4-10.2) mg/dL Procalcitonin 0.14 H (0.02-0.09) ng/mL 08/25/21 08/25/21 Range/Units 06:57 12:19 WBC (3.8-10.6) k/uL MCHC (31.0-37.0) g/dL Carbon Dioxide 36 H (22-30) mmol/L BUN 22 H (9-20) mg/dL Glucose 71 L (74-99) mg/dL POC Glucose (mg/dL) 70 L (75-99) mg/dL Calcium 8.3 L (8.4-10.2) mg/dL Procalcitonin (0.02-0.09) ng/mL
[2021-08-25] MEDS ORDERED: MIDAZOLAM 2 MG/2 ML VIAL IVP ONE (13:03)
[2021-08-25] MEDS ORDERED: DEXTROSE 50% SYRINGE 50 ML IVP ONE ×2 (13:14→14:26)
--- NOTE | 2021-08-25 13:34 | P.ANPRN ---
Procedure Note - Anesthesia - Nerve Block Performed Left Adductor Canal Single Time Out Performed: Yes Date of Procedure: 08/25/21 Procedure Start Time: 13:03 Procedure Stop Time: 13:10 Location of Patient: PreOp Indication: Acute Post-Operative Pain, Requested by Surgeon Sedation Type: Sedate with meaningful contact maintained Preparation: Sterile Prep, Sterile Dressing Position: Supine Catheter: None Needle Types: Facet Needle Gauge: 20 Ultrasound used to visualize needle placement: Yes Ultrasound used to observe medication spread: Yes Injectate: 0.5% Ropivacaine (see comment for volume) (20 ml) Blood Aspirated: No Pain Paresthesia on Injection Noted: No Resistance on Injection: Normal Image Stored and Saved: Yes Events: Uneventful and Well Tolerated Left Popliteal Single Time Out Performed: Yes Date of Procedure: 08/25/21 Procedure Start Time: 13:11 Procedure Stop Time: 13:20 Location of Patient: PreOp Indication: Acute Post-Operative Pain, Requested by Surgeon Sedation Type: Sedate with meaningful contact maintained Preparation: Sterile Prep, Sterile Dressing Position: Right Lateral Catheter: None Needle Types: Facet Needle Gauge: 20 Ultrasound used to visualize needle placement: Yes Ultrasound used to observe medication spread: Yes Injectate: 0.5% Ropivacaine (see comment for volume) (20 ml + decadron 4 mg) Blood Aspirated: No Pain Paresthesia on Injection Noted: No Resistance on Injection: Normal Image Stored and Saved: Yes Events: Uneventful and Well Tolerated
[2021-08-25 13:38] LABS: Glucose,Whole Blood 78 mg/dL (75-99)
[2021-08-25] MEDS ORDERED: ROPIVACAINE 5 MG/ML 30 ML VIAL ONE (13:45)
[2021-08-25] MEDS ORDERED: DEXAMETHASONE SOD PHOSPHATE 4 MG/ML 1 ML VIAL ONE (13:45)
[2021-08-25] MEDS ORDERED: MIDAZOLAM 2 MG/2 ML VIAL ONE (13:45)
[2021-08-25] MEDS ORDERED: KETAMINE 10 MG/ML 20 ML VIAL ONE (13:45)
[2021-08-25 14:22] LABS: Glucose,Whole Blood 70 mg/dL (75-99)
[2021-08-25 14:41] LABS: Glucose,Whole Blood 85 mg/dL (75-99)
--- NOTE | 2021-08-25 15:22 | P.OP ---
Date of Procedure: 08/25/21 Preoperative Diagnosis: Nonhealing wound left fifth metatarsal head plantar surface. Postoperative Diagnosis: Stage IV nonhealing wound R surface left fifth metatarsal head with exposure of the fifth and fourth metatarsals Wound measures 28 x 30 x 10 mm. Procedure(s) Performed: Excisional debridement utilizing a surgical scalpel of nonviable tissue nonhealing wound left foot plantar surface. Implants: None. Anesthesia: regional Surgeon: Hany Hidalgo Estimated Blood Loss (ml): 2 Pathology: none sent Condition: stable Disposition: no change Indications for Procedure: Patient is a 51-year-old male with history of tobacco use as well as diabetes mellitus who presented with a nonhealing ulceration on the plantar surface of the left foot at the fifth metatarsal head. To further understand degree of wound the patient is offered excisional debridement. Preoperative physical examination demonstrated palpable DP and PT pulses. Arterial Doppler demonstrated findings consistent with severe tibial artery occlusive disease. Description of Procedure: Patient is brought the upper and placed in supine position after having received a regional block at the popliteal level. Patient's left foot was sterilely prepped and draped in usual manner. The wound which was eventually found to measure 28 x 30 x 10 mm was identified. Necrotic tissue was sharply divided with a surgical scalpel. The fifth metatarsal head was soft to palpation consistent with osteomyelitis. Bleeding was evident and this was controlled with compression. The wound was packed with iodoform gauze. Proper dressing was applied. Patient tolerated the procedure well. He was taken the recovery area satisfactory and stable condition. Plan: Patient most likely will require some type of amputation of the fourth and fifth toes of the left foot.
[2021-08-25 15:26] LABS: Glucose,Whole Blood 97 mg/dL (75-99)
[2021-08-25 16:22] LABS: Glucose,Whole Blood 94 mg/dL (75-99)
[2021-08-25] MEDS: lisinopriL 5 MG TAB PO SCH (16:24)
[2021-08-25 20:04] LABS: Glucose,Whole Blood 259 mg/dL (75-99)
[2021-08-25] MEDS: CITALOPRAM HYDROBROMIDE 20 MG TAB PO SCH (20:42)
[2021-08-25] MEDS: INSULIN DETEMIR (LEVEMIR) 100 UNIT/ML SYR SQ SCH (20:42)
[2021-08-25] MEDS: ATORVASTATIN 40 MG TAB PO SCH (20:42)
[2021-08-25] MEDS: LACTULOSE 20 GM/30 ML CUP PO PRN (20:48)
[2021-08-25] MEDS: ALPRAZolam 0.25 MG TAB PO PRN (23:10)
[2021-08-26 01:30] LABS: ALT 137 U/L (4-49); AST 94 U/L (17-59); African American GFR (CKD) >90 (>60 ml/min/1.73 sqM); Albumin 3.1 g/dL (3.5-5.0); Alkaline Phosphatase 162 U/L (38-126); Anion Gap 6 mmol/L; Blood Urea Nitrogen 25 mg/dL (9-20); Calcium 8.6 mg/dL (8.4-10.2); Carbon Dioxide 29 mmol/L (22-30); Chloride 99 mmol/L (98-107); Glucose 218 mg/dL (74-99); Non-African American GFR(CKD) >90 (>60 ml/min/1.73 sqM); Potassium 4.2 mmol/L (3.5-5.1); Sodium 134 mmol/L (137-145); Total Bilirubin 1.1 mg/dL (0.2-1.3); Total Protein 6.8 g/dL (6.3-8.2)
[2021-08-26] MEDS: PIPERACILLIN-TAZOBACTAM 3.375 GM in SODIUM CHLORIDE 0.9% 100 ML IVPB SCH ×3 (03:30→18:11)
[2021-08-26] MEDS: FUROSEMIDE 100 MG in SODIUM CHLORIDE 0.9% 90 ML IV SCH ×3 (05:40→23:20)
[2021-08-26 06:17] LABS: Glucose,Whole Blood 191 mg/dL (75-99)
[2021-08-26] MEDS: INSULIN ASPART (NovoLOG) 100 UNIT/ML VIAL SQ SCH ×4 (06:45→21:58)
[2021-08-26] MEDS: BUDESONIDE 1 MG/2 ML NEBU INHALATION SCH ×2 (09:43→19:34)
[2021-08-26] MEDS: IPRATROPIUM-ALBUTEROL 3 ML NEB INHALATION SCH ×4 (09:43→19:34)
--- NOTE | 2021-08-26 10:05 | P.PN ---
Subjective Progress Note Date: 08/26/21 HISTORY OF PRESENT ILLNESS: This is a pleasant 51-year-old male past medical history significant for mild nonobstructive coronary artery disease, dilated cardiomyopathy, chronic systolic heart failure with previously known EF of 23%, status post AICD in 2014, type 2 diabetes, hypertension, dyslipidemia, chronic nicotine dependence, COPD, diabetic foot wounds. He follows in the office with Dr. Abbasi. We have been asked to see in consultation for congestive heart failure. Patient presented to the emergency department with worsening bilateral lower extremity edema and shortness of breath. Reporting that for about 2 weeks he had been having symptoms of extremity edema he states that he increased his lasix himself and has some improvement, however, his symptoms worsened again and he decided to come to the emergency department for further evaluation. He has not followed up with Dr. Abbasi since 07/2020. He is having symptoms of orthopnea. He denied chest pain, lightheadedness dizziness, syncope or near syncope. He also endorses a left foot wound that has not healed. DIAGNOSTICS Most recent Echo 01/2020 in the office revealed an EF of 23%, dilated cardiomyopathy, mild mitral regurgitation, mild tricuspid regurgitation EKG reveals sinus tachycardia, heart rate 117, LVH, poor R wave progression, no significant ST ST-T wave abnormalities. Telemetry tracings indicate sinus mechanism HR 110-120 Chest xray vascular congestion Current home medications include atorvastatin 40 mg nightly, Lasix 80 mg twice a day, Toprol succinate 50 mg daily, aspirin 81 mg daily Lasix, WBC 15.7, hemoglobin 14.3, platelets 235, sodium 136, potassium 3.9, BUN 17, serum creatinine 0.7, magnesium 2.0, proBNP 6230, COVID-19 negative Most recent cardiac catheterization 11/2017 revealed minimal coronary artery disease with mild irregularities in the RCA and mid LAD 08/26/2021 Patient seen and fully evaluated at bedside this morning. He remains on Lasix infusion at 10 mg per hour and has had 2000 mL of urinary output over the past 24 hours. Renal function stable with BUN 25, creatinine 0.93, and GFR remaining greater than 90. Electrolyte values normal findings. Reports breathing is a li ttle better and swelling seems to have improved slightly. Patient denies having any other complaints this time including headache, lightheadedness, dizziness, chest pain, palpitations, or any other complaints. He continues to have 2-3+ pitting lower extremity edema. We will follow-up with echocardiogram results. PHYSICAL EXAM: VITAL SIGNS: Reviewed. GENERAL: Well-developed in no acute distress. NECK: Supple. No JVD or thyromegaly LUNGS: Respirations even and unlabored. Lungs essentially clear to auscultation bilaterally. HEART: Regular rate and rhythm. S1 and S2 heard. Systolic murmur noted. EXTREMITIES: Normal range of motion. No clubbing or cyanosis. Peripheral pulses intact. 3+ bilateral lower extremity edema ASSESSMENT: Acute on chronic Heart failure with reduced ejection fraction, systolic Dilated, nonischemic cardiomyopathy status post AICD implantation in 2014 Type 2 diabetes Hypertension Dyslipidemia Chronic nicotine dependence COPD Diabetic foot wound Leukocytosis PLAN: Continue current cardiac medications Echocardiogram pending Continue IV Lasix infusion at 10 mg per hour Monitor kidney function Accurate I&O, patient had 2000 mL output over past 24 hours Daily weights Close monitoring of electrolytes and replace abnormal values as needed Further recommendations pending patient course Nurse practitioner note has been reviewed by physician. Signing provider agrees with the documented findings, assessment, and plan of care. Objective - Vital Signs Vital signs: Vital Signs Temp 97.6 F 08/26/21 04:00 Pulse 75 08/26/21 04:00 Resp 16 08/26/21 04:00 BP 114/73 08/26/21 04:00 Pulse Ox 95 08/26/21 04:00 Intake & Output 08/25/21 08/26/21 08/26/21 18:59 06:59 18:59 Intake Total 1435.167 417.500 236 Output Total 1003 1000 Balance 432.167 -582.500 236 Weight 113.7 kg Intake: IV 300 Intake, IV Titration 95.167 177.500 Amount Furosemide 100 mg In 95.167 177.500 Sodium Chloride 0.9% 90 ml @ 10 MG/HR 10 mls/hr IV .Q10H LAN Rx#: [id number] Oral 1040 240 236 Output: Urine 1000 1000 Estimated Blood Loss 3 Other: # Voids 1 - Labs CBC & Chem 7: 08/25/21 06:57 08/26/21 00:43 Labs: Abnormal Lab Results - Last 24 Hours (Table) 08/25/21 08/25/21 08/25/21 Range/Units 06:57 06:57 12:19 Sodium (137-145) mmol/L BUN (9-20) mg/dL Glucose (74-99) mg/dL POC Glucose (mg/dL) 70 L (75-99) mg/dL Hemoglobin A1c 8.8 H (0.0-6.0) % AST (17-59) U/L ALT (4-49) U/L Alkaline Phosphatase (38-126) U/L Albumin (3.5-5.0) g/dL Procalcitonin 0.14 H (0.02-0.09) ng/mL 08/25/21 08/25/21 08/26/21 Range/Units 14:20 20:03 00:43 Sodium 134 L (137-145) mmol/L BUN 25 H (9-20) mg/dL Glucose 218 H (74-99) mg/dL POC Glucose (mg/dL) 70 L 259 H (75-99) mg/dL Hemoglobin A1c (0.0-6.0) % AST 94 H (17-59) U/L ALT 137 H (4-49) U/L Alkaline Phosphatase 162 H (38-126) U/L Albumin 3.1 L (3.5-5.0) g/dL Procalcitonin (0.02-0.09) ng/mL 08/26/21 Range/Units 06:14 Sodium (137-145) mmol/L BUN (9-20) mg/dL Glucose (74-99) mg/dL POC Glucose (mg/dL) 191 H (75-99) mg/dL Hemoglobin A1c (0.0-6.0) % AST (17-59) U/L ALT (4-49) U/L Alkaline Phosphatase (38-126) U/L Albumin (3.5-5.0) g/dL Procalcitonin (0.02-0.09) ng/mL
--- NOTE | 2021-08-26 10:10 | P.CONS ---
History of Present Illness - Reason for Consult Consult date: 08/25/21 left foot osteomyelitis Requesting physician: Elias Mcneal Sheet - Chief Complaint left foot non healing wound x weeks - History of Present Illness History of present illness : Patient is a 51-year-old male with a past medical his significant for asthma coronary artery disease COPD diabetes mellitus hypertension hyperlipidemia presenting to the ER on 08/23/2021 for e valuation of bilateral lower extremity swelling and a left foot wound apparently the patient did have a wound to the left foot at the base of his left fifth toe that has been there for quite some times patient not sure how exactly it started or what he has done for it to get it better with nonhealing of this wound he presented to the hospital on arrival to the ER the patient was afebrile and no fever has been recorded subsequently patient did have a white count of 15.7 and is down to 11.7 creatinine has been normal davies PCR was negative patient did have a chest x-ray mild vascular congestion no effusion he did have x-rays of the foot dorsal dislocation at the fifth digit at the metatarsophalangeal joint suggestion of fracture fragment noted medially there may be underlying osteomyelitis patient has been evaluated by vascular surgery as well as wound care patient was taken to the OR this afternoon with a diagnosis of stage IV nonhealing wound left fifth metatarsal head with exposure of the fifth and fourth metatarsal patient status post excisional debridement and mention of metatarsal head was soft to palpation consistent with osteomyelitis unfortunately no cultures were done and the patient did not have even any blood cultures done during this admission patient has been treated with Zosyn infectious disease was consulted today for further management of antibiotic therapy Review of system: CONSTITUTIONAL: Positive for weakness denies fever. EYES: No complaint. ENT: No complaint. RESPIRATORY: No complaint. CARDIOVASCULAR: No complaint. GENITOURINARY: No complaint. GASTROINTESTINAL: No complaint. MUSCULOSKELETAL as per history of present illness INTEGUMENTARY: As per history of present illness PSYCHOLOGIC: No complaint. ENDOCRINE: No complaint. NEUROLOGIC: No complaint. Past medical history : Reviewed, documented below Past surgical history : Reviewed, documented below Social history: Reviewed, documented below Medications: Reviewed, as documented below EXAMINATION: Vital sigans= Reviewed and documented below GENERAL DESCRIPTION: Middle-aged male lying in bed, no distress. No tachypnea or accessory muscle of respiration use. HEENT: Shows Pallor , no scleral icterus. Oral mucous membrane is dry. NECK: Trachea central, no thyromegaly. LUNGS: Unlabored breathing. Coarse breath sounds bilaterally. No wheeze or crackle. HEART: S1, S2, regular rate and rhythm. ABDOMEN: Soft, no tenderness , guarding or rigidity EXTREMITIES: Left foot is currently dressed in the OR dressing no drainage on the dressing SKIN: No rash, no masses palpable. NEUROLOGICAL: The patient is awake, alert, oriented x3, mood and affect normal. LABS AND RADIOLOGY: Reviewed results see below Assessment : Patient presented to hospital 3 days ago for evaluation of lower extremity swelling as well as a nonhealing wound to the left fifth and fourth toe and this patient did have abnormal x-ray suggestive of osteomyelitis patient did have elevated white count and the patient was taken to the OR and is status post debridement of the left fourth and fifth toe with evidence of osteomyelitis at the time of surgery unfortunately no local cultures or blood cultures has be en done on this patient and the patient has been antibiotic for 3 days, blood cultures at this point will be of no benefit Plan: 1-continue with the Zosyn as we do not have any microbiological data as no cultures were done by ER admitting or vascular team and the patient was also seen by wound care 2-continue local wound care per vascular surgery with a possible plan for possible amputation of the left fourth and fifth toe Thank you for this consultation, may follow the patient along with you Past Medical History Past Medical History: Asthma, Coronary Artery Disease (CAD), Chest Pain / Angina, Heart Failure, COPD, Diabetes Mellitus, GERD/Reflux, Hyperlipidemia, Hypertension, Myocardial Infarction (MT), Pneumonia, Sleep Apnea/CPAP/BIPAP, Supraventricular Tachycardia (SVT) Additional Past Medical History / Comment(s): Ischemic cardiomyopathy, chronic CHF, SVT, IDDM type II, KAMINI with CPAP occasionally used, chronic cervical/back pain, DJD, diabetic foot wounds x 4 months. Last Myocardial Infarction Date:: 12/11/17 History of Any Multi-Drug Resistant Organisms: MRSA Year Discovered:: 03/10/20 MDRO Source:: MRSA TOE Past Surgical History: Adenoidectomy, AICD, Back Surgery, Cholecystectomy, EPS, Heart Catheterization, Pacemaker, Tonsillectomy Additional Past Surgical History / Comment(s): 12/10/17 cardiac cath, previous cardiac cath, 2/5/15 AICD/pacer, EGD/colonoscopy, low back surgery with fusion. Past Anesthesia/Blood Transfusion Reactions: Motion Sickness Additional Past Anesthesia/Blood Transfusion Reaction / Comm: Pt states he received blood with back surgery without reaction. Type of Cardiac Device: Permanent Pacemaker, AICD Device Placement Date:: 09-02-14 Past Psychological History: ADD/ADHD, Anxiety Smoking Status: Current every day smoker Past Alcohol Use History: None Reported Past Drug Use History: Marijuana - Past Family History Father Additional Family Medical History / Comment(s): Pt has not kept in close contact with his father for many yrs. Father was an alcoholic and pt believes he has from cirrhosis of the liver. Mother History Unknown: Yes Additional Family Medical History / Comment(s): Pt is not in contact with his mother or his father who he has heard had . Medications and Allergies Home Medications Medication Instructions Recorded Confirmed Type Morphine Sulfate Ir [MSIR] 30 mg PO QID PRN 02/05/19 08/23/21 History DULoxetine HCL [Cymbalta] 60 mg PO BID 11/28/19 08/23/21 History Furosemide [Lasix] 80 mg PO BID 11/28/19 08/23/21 History Metoprolol Succinate [Toprol XL] 50 mg PO DAILY 11/28/19 08/23/21 History Aspirin EC [Ecotrin Low Dose] 81 mg PO DAILY 08/23/21 08/23/21 History Atorvastatin [Lipitor] 40 mg PO HS 08/23/21 08/23/21 History Citalopram Hydrobromide 40 mg PO HS 08/23/21 08/23/21 History Insulin Glargine,Hum.rec.anlog 100 units SQ BID 08/23/21 08/23/21 History [Toshola Bailey] Allergies Allergy/AdvReac Type Severity Reaction Status Date / Time azithromycin Allergy Anaphylaxis Verified 08/25/21 12:11 gemfibrozil [From Lopid] Allergy Rash/Hives Verified 08/25/21 12:11 Physical Exam Vitals: Vital Signs Temp Pulse Pulse Pulse Resp BP Pulse Ox 08/25/21 11:59 85 08/25/21 11:52 80 08/25/21 11:43 80 16 92/58 98 08/25/21 08:00 97.9 F 88 16 111/64 93 L 08/25/21 07:48 90 08/25/21 07:36 88 08/25/21 03:15 98.2 F 84 18 101/69 94 L 08/24/21 23:30 98.0 F 79 17 100/64 94 L 08/24/21 20:00 98.3 F 85 18 102/70 95 08/24/21 16:59 85 08/24/21 16:50 82 08/24/21 16:00 73 16 114/71 96 Intake and Output 08/24/21 08/25/21 08/25/21 22:59 06:59 14:59 Intake Total 86.833 595.167 Output Total 400 950 850 Balance -400 -863.167 -254.833 Intake: Intake, IV Titration 86.833 95.167 Amount Furosemide 100 mg In 86.833 95.167 Sodium Chloride 0.9% 90 ml @ 10 MG/HR 10 mls/hr IV .Q10H [facility] Rx#: [id number] Oral 500 Output: Urine 400 950 850 Other: Voiding Method Urinal Urinal Weight 112.9 kg Results CBC & Chem 7: 08/25/21 06:57 08/26/21 00:43 Labs: Abnormal Lab Results - Last 24 Hours (Table) 08/24/21 08/25/21 08/25/21 Range/Units 20:26 06:57 06:57 WBC 11.7 H (3.8-10.6) k/uL MCHC 30.4 L (31.0-37.0) g/dL Carbon Dioxide (22-30) mmol/L BUN (9-20) mg/dL Glucose (74-99) mg/dL POC Glucose (mg/dL) 117 H (75-99) mg/dL Calcium (8.4-10.2) mg/dL Procalcitonin 0.14 H (0.02-0.09) ng/mL 08/25/21 Range/Units 06:57 WBC (3.8-10.6) k/uL MCHC (31.0-37.0) g/dL Carbon Dioxide 36 H (22-30) mmol/L BUN 22 H (9-20) mg/dL Glucose 71 L (74-99) mg/dL POC Glucose (mg/dL) (75-99) mg/dL Calcium 8.3 L (8.4-10.2) mg/dL Procalcitonin (0.02-0.09) ng/mL
[2021-08-26] MEDS: METOPROLOL SUCCINATE (ER) 50 MG TAB.ER.24H PO SCH (10:13)
[2021-08-26] MEDS: ENOXAPARIN 40 MG/0.4 ML SYRINGE SQ SCH (10:13)
[2021-08-26] MEDS: DULoxetine HCL 60 MG CAPSULE.DR PO SCH ×2 (10:13→21:58)
[2021-08-26] MEDS: ASPIRIN 81 MG PO SCH (10:13)
[2021-08-26] MEDS: SPIRONOLACTONE 25 MG TAB PO SCH (10:14)
[2021-08-26] MEDS: MORPHINE SULFATE IR 15 MG TABLET PO PRN ×2 (10:14→18:14)
[2021-08-26] MEDS: NICOTINE 7MG/24HR PATCH TRANSDERM SCH (10:14)
[2021-08-26] MEDS: lisinopriL 5 MG TAB PO SCH (11:35)
[2021-08-26 11:37] LABS: Glucose,Whole Blood 249 mg/dL (75-99)
[2021-08-26] MEDS: ALPRAZolam 0.25 MG TAB PO PRN ×2 (12:40→23:20)
--- NOTE | 2021-08-26 15:23 | P.PN ---
Subjective This is a pleasant 51-year-old patient of Dr. Hany Rodríguez. Chronic stable medical conditions include nonischemic CHF EF less than 20%, COPD, diabetes, GERD, hypertension, hyperlipidemia, obstructive sleep apnea with CPAP, AICD and a pacemaker. Patient lives with his 20-year-old son. Normally uses a cane to get about. did drink heavily in the past and quit 20 years ago. Still an active smoker. Patient now presents for noticing increasing swelling in the lower extremity. At least for 2 weeks. Normally uses 2 pillows. Some persistent supple disease. More orthopnea. Has a cough. No sputum. No fever no chills. Decreased appetite. More short of breath. Some wheezing. Patient also has a wound on the left foot for which she followed at the wound care center. Denies any drainage. But wants it to be looked at. Patient has continued to smoke. Admitted with acute CHF exacerbation EF less than 20%-put on Lasix drip, acute COPD exacerbation-put on DuoNeb and nebulized steroids, diabetic foot wound for which vascular and wound care consulted. August 24: About 1200 mL negative fluid balance. Sitting at the edge of the bed. Shortness of breath. foot wound is rather deep. Vascular has been consulted. On IV Zosyn. Fredy wrap for lower extremity. Eating well. Morning dose of Levemir was held 08/25/2021 Patient is with severe CHF less than 20% ejection fraction presents with left foot infected wound [while he is diabetic and there was evidence of fracture of the fifth metatarsophalangeal joint, vascular surgery on the case and patient possibly will go for debridement of his left fourth and fifth toe. Also there is a possible evidence of osteomyelitis. Other comorbidities including severe pulmonary hypertension and dilated nonischemic cardiomyopathy status post AICD. Patient possibly going for debridement today. He was been nothing by mouth on his sugar was on the low side therefore his Levemir was lowered from 100 units twice a day count to 40 units at bedtime. Leukocytosis morning was 7100. Glucose was 98. CT is improving, LFTs mildly elevated. Hemoglobin A1c and poorcalcitonin are pending. His metoprolol was increased to 100 mg daily compared to 50 mg at home by cardiology team. 08/26/2021 Patient is status post debridement of the plantar surface of his infected left foot, no culture was sent. Currently is covered with Zosyn. Also general operations agent on the case for his severe systolic CHF with nonischemic dilated cardiomyopathy with ejection fraction less than 20%, he has no dyspnea but he has 3+ bilateral leg swelling and pitting like edema and currently kept on Lasix drip 10 mg/h. Blood pressure 91/61 Glucose is more than 200 and he was on Levemir 80 units twice a day at home, currently on 40 units at bedtime, so we added a 20 was tomorrow morning and we'll keep monitoring. Liver enzymes trending down. Repeat labs in the morning Hemoglobin A1c is uncontrolled with 8.8% Objective - Vital Signs Vital signs: Vital Signs Temp 98.0 F 08/26/21 12:00 Pulse 78 08/26/21 12:00 Resp 18 08/26/21 12:00 BP 91/61 08/26/21 12:00 Pulse Ox 94 L 08/26/21 12:53 Intake & Output 08/25/21 08/26/21 08/26/21 18:59 06:59 18:59 Intake Total 1435.167 417.500 236 Output Total 1003 1000 Balance 432.167 -582.500 236 Weight 113.7 kg Intake: IV 300 Intake, IV Titration 95.167 177.500 Amount Furosemide 100 mg In 95.167 177.500 Sodium Chloride 0.9% 90 ml @ 10 MG/HR 10 mls/hr IV .Q10H [facility] Rx#: [id number] Oral 1040 240 236 Output: Urine 1000 1000 Estimated Blood Loss 3 Other: Voiding Method Urinal # Voids 1 - Exam GENERAL: The patient is alert and oriented x3, not in any acute distress. Well developed, well nourished. HEENT: Pupils are round and equally reacting to light. EOMI. No scleral icterus. No conjunctival pallor. Normocephalic, atraumatic. No pharyngeal erythema. No thyromegaly. CARDIOVASCULAR: S1 and S2 present. No murmurs, rubs, or gallops. PULMONARY: Chest is clear to auscultation, no wheezing or crackles. ABDOMEN: Soft, nontender, nondistended, normoactive bowel sounds. No palpable organomegaly. MUSCULOSKELETAL: No joint swelling or deformity. -EXTREMITIES: No cyanosis, clubbing, or pedal edema. Left foot wound with a dressing. Left leg cellulitis, pinkish in color. Slightly warm compared to the right side. 3+ bilateral pitting leg edema NEUROLOGICAL: Gross neurological examination did not reveal any focal deficits. SKIN: No rashes. no petechiae. - Labs CBC & Chem 7: 08/25/21 06:57 08/26/21 00:43 Labs: Abnormal Lab Results - Last 24 Hours (Table) 08/25/21 08/25/21 08/25/21 Range/Units 06:57 14:20 20:03 Sodium (137-145) mmol/L BUN (9-20) mg/dL Glucose (74-99) mg/dL POC Glucose (mg/dL) 70 L 259 H (75-99) mg/dL Hemoglobin A1c 8.8 H (0.0-6.0) % AST (17-59) U/L ALT (4-49) U/L Alkaline Phosphatase (38-126) U/L Albumin (3.5-5.0) g/dL 08/26/21 08/26/21 08/26/21 Range/Units 00:43 06:14 11:36 Sodium 134 L (137-145) mmol/L BUN 25 H (9-20) mg/dL Glucose 218 H (74-99) mg/dL POC Glucose (mg/dL) 191 H 249 H (75-99) mg/dL Hemoglobin A1c (0.0-6.0) % AST 94 H (17-59) U/L ALT 137 H (4-49) U/L Alkaline Phosphatase 162 H (38-126) U/L Albumin 3.1 L (3.5-5.0) g/dL Assessment and Plan Assessment: -Acute on chronic congestive heart failure exacerbation from nonischemic cardi omyopathy systolic dysfunction EF less than 20%: Slow to respond IV Lasix drip. Fluid restriction 1500 mL Strict I's and O's. Toprol. Aldactone AICD -Acute on Chronic left plantar diabetic foot wound : Slow to respond. Follow with vascular. Consult ID. IV Zosyn Status post debridement by vascular surgery team on 08/25 ID team on the case -Acute COPD exacerbation in a current smoker: Slow to respond, DuoNeb 4 times a day. Nebulized Pulmicort -Diabetes mellitus type 2 chronically on insulin, uncontrolled with hyperglycemia. Hemoglobin A1c is 8.8% Decrease Levemir 40 units subcu twice a day. Diabetic diet. Accu-Cheks and sliding scale -Hyperlipidemia Lipitor 40 mg daily at bedtime -Essential hypertension Toprol-XL 50 mg a day -Obstructive sleep apnea sometimes uses CPAP machine -Diabetic peripheral neuropathy Cymbalta -Anxiety Celexa, Cymbalta -DJD Tylenol when necessary -Chronic nicotine dependence patient cigarette smoker Nicotine patch 7 -AICD
[2021-08-26 16:33] LABS: Glucose,Whole Blood 233 mg/dL (75-99)
[2021-08-26 20:15] LABS: Glucose,Whole Blood 183 mg/dL (75-99)
[2021-08-26] MEDS: INSULIN DETEMIR (LEVEMIR) 100 UNIT/ML SYR SQ SCH (21:58)
[2021-08-26] MEDS: CITALOPRAM HYDROBROMIDE 20 MG TAB PO SCH (21:58)
[2021-08-26] MEDS: ATORVASTATIN 40 MG TAB PO SCH (21:58)
[2021-08-26] MEDS: LACTULOSE 20 GM/30 ML CUP PO PRN (23:22)
[2021-08-27] MEDS: PIPERACILLIN-TAZOBACTAM 3.375 GM in SODIUM CHLORIDE 0.9% 100 ML IVPB SCH ×3 (03:11→18:31)
[2021-08-27 06:11] LABS: Glucose,Whole Blood 76 mg/dL (75-99)
[2021-08-27] MEDS ORDERED: INSULIN DETEMIR (LEVEMIR) 100 UNIT/ML SYR SQ SCH (07:00)
[2021-08-27] MEDS: BUDESONIDE 1 MG/2 ML NEBU INHALATION SCH ×2 (07:37→20:49)
[2021-08-27] MEDS: IPRATROPIUM-ALBUTEROL 3 ML NEB INHALATION SCH ×4 (07:37→20:49)
[2021-08-27 08:33] LABS: Calcium 8.8 mg/dL (8.4-10.2); Magnesium 2.2 mg/dL (1.6-2.3); Potassium 4.3 mmol/L (3.5-5.1)
[2021-08-27] MEDS: INSULIN ASPART (NovoLOG) 100 UNIT/ML VIAL SQ SCH ×4 (08:59→20:34)
[2021-08-27] MEDS: SPIRONOLACTONE 25 MG TAB PO SCH (09:06)
[2021-08-27] MEDS: NICOTINE 7MG/24HR PATCH TRANSDERM SCH (09:06)
[2021-08-27] MEDS: ASPIRIN 81 MG PO SCH (09:07)
[2021-08-27] MEDS: ENOXAPARIN 40 MG/0.4 ML SYRINGE SQ SCH (09:07)
[2021-08-27] MEDS: DULoxetine HCL 60 MG CAPSULE.DR PO SCH ×2 (09:07→20:35)
[2021-08-27] MEDS: METOPROLOL SUCCINATE (ER) 50 MG TAB.ER.24H PO SCH (09:07)
--- NOTE | 2021-08-27 09:25 | P.PN ---
Subjective Progress Note Date: 08/27/21 HISTORY OF PRESENT ILLNESS: This is a pleasant 51-year-old male past medical history significant for mild nonobstructive coronary artery disease, dilated cardiomyopathy, chronic systolic heart failure with previously known EF of 23%, status post AICD in 2014, type 2 diabetes, hypertension, dyslipidemia, chronic nicotine dependence, COPD, diabetic foot wounds. He follows in the office with Dr. Abbasi. We have been asked to see in consultation for congestive heart failure. Patient presented to the emergency department with worsening bilateral lower extremity edema and shortness of breath. Reporting that for about 2 weeks he had been having symptoms of extremity edema he states that he increased his lasix himself and has some improvement, however, his symptoms worsened again and he decided to come to the emergency department for further evaluation. He has not followed up with Dr. Abbasi since 07/2020. He is having symptoms of orthopnea. He denied chest pain, lightheadedness dizziness, syncope or near syncope. He also endorses a left foot wound that has not healed. DIAGNOSTICS Most recent Echo 01/2020 in the office revealed an EF of 23%, dilated cardiomyopathy, mild mitral regurgitation, mild tricuspid regurgitation EKG reveals sinus tachycardia, heart rate 117, LVH, poor R wave progression, no significant ST ST-T wave abnormalities. Telemetry tracings indicate sinus mechanism HR 110-120 Chest xray vascular congestion Current home medications include atorvastatin 40 mg nightly, Lasix 80 mg twice a day, Toprol succinate 50 mg daily, aspirin 81 mg daily Lasix, WBC 15.7, hemoglobin 14.3, platelets 235, sodium 136, potassium 3.9, BUN 17, serum creatinine 0.7, magnesium 2.0, proBNP 6230, COVID-19 negative Most recent cardiac catheterization 11/2017 revealed minimal coronary artery disease with mild irregularities in the RCA and mid LAD 08/27/21 Patient evaluated at bedside this morning. He denies having any chest pain or palpitations and reports unchanged shortness of breath and bilateral lower extremity swelling. No conversational dyspnea noted. Patient continues to have bilateral lower extremity 2-3+ edema. Lungs with crackles bilateral bases. He remains on Lasix infusion at 10 mg per hour. Renal function and electrolytes normal findings. Output over past 24 hours is 2125 mL. We will continue with Lasix infusion for next 24 hours. Echocardiogram revealed an EF less than 20% with severe pulmonary hypertension. PHYSICAL EXAM: VITAL SIGNS: Reviewed. GENERAL: Well-developed in no acute distress. NECK: Supple. No JVD or thyromegaly LUNGS: Respirations even and unlabored. Lungs crackles bilateral bases HEART: Regular rate and rhythm. S1 and S2 heard. Systolic murmur noted. EXTREMITIES: Normal range of motion. No clubbing or cyanosis. Peripheral pulses intact. 2-3+ bilateral lower extremity edema ASSESSMENT: Acute on chronic systolic Heart failure with severely impaired EF less than 20% Severe pulmonary hypertension Dilated, nonischemic cardiomyopathy status post AICD implantation in 2014 Type 2 diabetes Hypertension Dyslipidemia Chronic nicotine dependence COPD Diabetic foot wound Leukocytosis PLAN: Continue current cardiac medications Echocardiogram revealed EF less than 20% with severe pulmonary hypertension Continue IV Lasix infusion at 10 mg per hour for another 24 hours Monitor kidney function Accurate I&O, patient had 2125 mL output over past 24 hours Daily weights Close monitoring of electrolytes and replace abnormal values as needed Further recommendations pending patient course Nurse practitioner note has been reviewed by physician. Signing provider agrees with the documented findings, assessment, and plan of care. Objective - Vital Signs Vital signs: Vital Signs Temp 98.0 F 08/27/21 04:00 Pulse 84 08/27/21 04:00 Resp 18 08/27/21 04:00 BP 108/78 08/27/21 04:00 Pulse Ox 97 08/27/21 04:00 Intake & Output 08/26/21 08/27/21 08/27/21 18:59 06:59 18:59 Intake Total 1023.833 88.833 236 Output Total 1225 900 Balance -201.167 -811.167 236 Weight 113.8 kg Intake: Intake, IV Titration 87.833 88.833 Amount Furosemide 100 mg In 87.833 88.833 Sodium Chloride 0.9% 90 ml @ 10 MG/HR 10 mls/hr IV .Q10H [facility] Rx#: [id number] Oral 936 236 Output: Urine 1225 900 Other: Voiding Method Urinal - Labs CBC & Chem 7: 08/25/21 06:57 08/27/21 07:15 Labs: Abnormal Lab Results - Last 24 Hours (Table) 08/26/21 08/26/21 08/26/21 Range/Units 11:36 16:31 20:14 Carbon Dioxide (22-30) mmol/L BUN (9-20) mg/dL Glucose (74-99) mg/dL POC Glucose (mg/dL) 249 H 233 H 183 H (75-99) mg/dL 08/27/21 Range/Units 07:15 Carbon Dioxide 31 H (22-30) mmol/L BUN 29 H (9-20) mg/dL Glucose 72 L (74-99) mg/dL POC Glucose (mg/dL) (75-99) mg/dL
[2021-08-27 11:36] LABS: Glucose,Whole Blood 127 mg/dL (75-99)
[2021-08-27] MEDS: lisinopriL 5 MG TAB PO SCH (12:00)
[2021-08-27] MEDS: ONDANSETRON 4 MG/2 ML VIAL IVP PRN ×2 (12:04→20:34)
[2021-08-27] MEDS: MORPHINE SULFATE IR 15 MG TABLET PO PRN (12:05)
--- NOTE | 2021-08-27 12:47 | P.PN ---
Subjective This is a pleasant 51-year-old patient of Dr. Hany Rodríguez. Chronic stable medical conditions include nonischemic CHF EF less than 20%, COPD, diabetes, GERD, hypertension, hyperlipidemia, obstructive sleep apnea with CPAP, AICD and a pacemaker. Patient lives with his 20-year-old son. Normally uses a cane to get about. did drink heavily in the past and quit 20 years ago. Still an active smoker. Patient now presents for noticing increasing swelling in the lower extremity. At least for 2 weeks. Normally uses 2 pillows. Some persistent supple disease. More orthopnea. Has a cough. No sputum. No fever no chills. Decreased appetite. More short of breath. Some wheezing. Patient also has a wound on the left foot for which she followed at the wound care center. Denies any drainage. But wants it to be looked at. Patient has continued to smoke. Admitted with acute CHF exacerbation EF less than 20%-put on Lasix drip, acute COPD exacerbation-put on DuoNeb and nebulized steroids, diabetic foot wound for which vascular and wound care consulted. August 24: About 1200 mL negative fluid balance. Sitting at the edge of the bed. Shortness of breath. foot wound is rather deep. Vascular has been consulted. On IV Zosyn. Fredy wrap for lower extremity. Eating well. Morning dose of Levemir was held 08/25/2021 Patient is with severe CHF less than 20% ejection fraction presents with left foot infected wound [while he is diabetic and there was evidence of fracture of the fifth metatarsophalangeal joint, vascular surgery on the case and patient possibly will go for debridement of his left fourth and fifth toe. Also there is a possible evidence of osteomyelitis. Other comorbidities including severe pulmonary hypertension and dilated nonischemic cardiomyopathy status post AICD. Patient possibly going for debridement today. He was been nothing by mouth on his sugar was on the low side therefore his Levemir was lowered from 100 units twice a day count to 40 units at bedtime. Leukocytosis morning was 7100. Glucose was 98. CT is improving, LFTs mildly elevated. Hemoglobin A1c and poorcalcitonin are pending. His metoprolol was increased to 100 mg daily compared to 50 mg at home by cardiology team. 08/26/2021 Patient is status post debridement of the plantar surface of his infected left foot, no culture was sent. Currently is covered with Zosyn. Also handy man on the case for his severe systolic CHF with nonischemic dilated cardiomyopathy with ejection fraction less than 20%, he has no dyspnea but he has 3+ bilateral leg swelling and pitting like edema and currently kept on Lasix drip 10 mg/h. Blood pressure 91/61 Glucose is more than 200 and he was on Levemir 80 units twice a day at home, currently on 40 units at bedtime, so we added a 20 was tomorrow morning and we'll keep monitoring. Liver enzymes trending down. Repeat labs in the morning Hemoglobin A1c is uncontrolled with 8.8% 08/27/2021 Patient with no chest pain or dyspnea. His still have bilateral symmetric and leg swelling although it's looking improving gradually and slowly. His wound looks healing after debridement of the left foot plantar surface, dressing is in place. Blood pressure is better today 112/71 Creatinine is stable at 1.1, magnesium 2.21 potassium 4.3. Glucose is fluctuating but is acceptable now and we will keep him on Levemir and we will change those and to 30 units twice a day ( currently was taken 40 units at bedtime and 20 units daily) compared to 8 units twice a day at home. Hemoglobin A1c is 8.8% Objective - Vital Signs Vital signs: Vital Signs Temp 98.0 F 08/27/21 04:00 Pulse 84 08/27/21 04:00 Resp 18 08/27/21 04:00 BP 108/78 08/27/21 04:00 Pulse Ox 97 08/27/21 04:00 Intake & Output 08/26/21 08/27/21 08/27/21 18:59 06:59 18:59 Intake Total 1023.833 88.833 236 Output Total 1225 900 Balance -201.167 -811.167 236 Weight 113.8 kg Intake: Intake, IV Titration 87.833 88.833 Amount Furosemide 100 mg In 87.833 88.833 Sodium Chloride 0.9% 90 ml @ 10 MG/HR 10 mls/hr IV .Q10H [facility] Rx#: [id number] Oral 936 236 Output: Urine 1225 900 Other: Voiding Method Urinal - Exam GENERAL: The patient is alert and oriented x3, not in any acute distress. Well developed, well nourished. HEENT: Pupils are round and equally reacting to light. EOMI. No scleral icterus. No conjunctival pallor. Normocephalic, atraumatic. No pharyngeal erythema. No thyromegaly. CARDIOVASCULAR: S1 and S2 present. No murmurs, rubs, or gallops. PULMONARY: Chest is clear to auscultation, no wheezing or crackles. ABDOMEN: Soft, nontender, nondistended, normoactive bowel sounds. No palpable organomegaly. MUSCULOSKELETAL: No joint swelling or deformity. -EXTREMITIES: No cyanosis, clubbing, or pedal edema. Left foot wound with a dressing. Left leg cellulitis, pinkish in color. Slightly warm compared to the right side. 3+ bilateral pitting leg edema NEUROLOGICAL: Gross neurological examination did not reveal any focal deficits. SKIN: No rashes. no petechiae. - Labs CBC & Chem 7: 08/25/21 06:57 08/27/21 07:15 Labs: Abnormal Lab Results - Last 24 Hours (Table) 08/26/21 08/26/21 08/26/21 Range/Units 11:36 16:31 20:14 Carbon Dioxide (22-30) mmol/L BUN (9-20) mg/dL Glucose (74-99) mg/dL POC Glucose (mg/dL) 249 H 233 H 183 H (75-99) mg/dL 08/27/21 Range/Units 07:15 Carbon Dioxide 31 H (22-30) mmol/L BUN 29 H (9-20) mg/dL Glucose 72 L (74-99) mg/dL POC Glucose (mg/dL) (75-99) mg/dL Assessment and Plan Assessment: -Acute on chronic congestive heart failure exacerbation from nonischemic cardiomyopathy systolic dysfunction EF less than 20%: Slow to respond IV Lasix drip. Fluid restriction 1500 mL Strict I's and O's. Toprol. Aldactone AICD -Acute on Chronic left plantar diabetic foot wound : Slow to respond. Follow with vascular. Consult ID. IV Zosyn Status post debridement by vascular surgery team on 08/25 ID team on the case -Acute COPD exacerbation in a current smoker: Slow to respond, DuoNeb 4 times a day. Nebulized Pulmicort -Diabetes mellitus type 2 chronically on insulin, uncontrolled with hyperglycemia. Hemoglobin A1c is 8.8% Change Levemir 30 units subcu twice a day. Diabetic diet. Accu-Cheks and sliding scale -Hyperlipidemia Lipitor 40 mg daily at bedtime -Essential hypertension Toprol-XL 50 mg a day -Obstructive sleep apnea sometimes uses CPAP machine -Diabetic peripheral neuropathy Cymbalta -Anxiety Celexa, Cymbalta -DJD Tylenol when necessary -Chronic nicotine dependence patient cigarette smoker Nicotine patch 7 -AICD
[2021-08-27] MEDS: FUROSEMIDE 100 MG in SODIUM CHLORIDE 0.9% 90 ML IV SCH ×2 (14:51→21:21)
[2021-08-27] MEDS: ALPRAZolam 0.25 MG TAB PO PRN ×2 (16:14→22:55)
--- NOTE | 2021-08-27 16:41 | P.PN ---
Subjective Progress Note Date: 08/26/21 Principal diagnosis: Left foot osteo-myelitis Patient is a 51-year-old male with a past medical history significant for diabetes mellitus presented to hospital with a nonhealing wound to the left fifth toe with abnormal x-ray and this patient was status post I&D by vascular surgery completed on 08/25/2021. On today's evaluation that is 08/26/2021, the patient denies having any fever or chills, the patient is breathing comfortably denies any chest pain shortness of breath or cough no abdominal pain and no pain to the left foot/toe area Objective - Vital Signs Vital signs: Vital Signs Temp 98.5 F 08/26/21 20:00 Pulse 89 08/26/21 20:00 Resp 16 08/26/21 20:00 BP 104/72 08/26/21 20:00 Pulse Ox 97 08/26/21 20:00 Intake & Output 08/26/21 08/26/21 08/27/21 06:59 18:59 06:59 Intake Total 719.262 7796.833 88.833 Output Total 1000 1225 250 Balance -582.500 -201.167 -161.167 Weight 113.7 kg Intake: Intake, IV Titration 177.500 87.833 88.833 Amount Furosemide 100 mg In 177.500 87.833 88.833 Sodium Chloride 0.9% 90 ml @ 10 MG/HR 10 mls/hr IV .Q10H [facility] Rx#: [id number] Oral 240 936 Output: Urine 1000 1225 250 Other: Voiding Method Urinal - Exam GENERAL DESCRIPTION: Middle-age male up in the chair, in no distress RESPIRATORY SYSTEM: Unlabored breathing , decreased breath sounds at bases HEART: S1 S2 regular rate and rhythm , ABDOMEN: Soft , no tenderness EXTREMITIES: Left foot is currently dressed no drainage on the dressing - Labs CBC & Chem 7: 08/25/21 06:57 08/27/21 07:15 Labs: Abnormal Lab Results - Last 24 Hours (Table) 08/26/21 08/26/21 08/26/21 Range/Units 00:43 06:14 11:36 Sodium 134 L (137-145) mmol/L BUN 25 H (9-20) mg/dL Glucose 218 H (74-99) mg/dL POC Glucose (mg/dL) 191 H 249 H (75-99) mg/dL AST 94 H (17-59) U/L ALT 137 H (4-49) U/L Alkaline Phosphatase 162 H (38-126) U/L Albumin 3.1 L (3.5-5.0) g/dL 08/26/21 08/26/21 Range/Units 16:31 20:14 Sodium (137-145) mmol/L BUN (9-20) mg/dL Glucose (74-99) mg/dL POC Glucose (mg/dL) 233 H 183 H (75-99) mg/dL AST (17-59) U/L ALT (4-49) U/L Alkaline Phosphatase (38-126) U/L Albumin (3.5-5.0) g/dL Assessment and Plan (1) Foot osteomyelitis, left Current Visit: Yes Status: Acute Code(s): M86.9 - OSTEOMYELITIS, UNSPECIFIED SNOMED Code(s): 6514320097126637 Plan: 1-patient with left diabetic foot infection involving his fourth and fifth toe in this patient who is status post debridement with concern for underlying acute osteomyelitis, unfortunately no cultures have been done so we do not have any microbiological data waiting for further decision per vascular if the patient will need amputation or not continue with the Zosyn at this point Time with Patient: Less than 30
--- NOTE | 2021-08-27 16:42 | P.PN ---
Subjective Progress Note Date: 08/27/21 Principal diagnosis: Left foot osteo-myelitis Patient is a 51-year-old male with a past medical history significant for diabetes mellitus presented to hospital with a nonhealing wound to the left fifth toe with abnormal x-ray and this patient was status post I&D by vascular surgery completed on 08/25/2021. On today's evaluation that is 08/27/2021, the patient remains to be afebrile, the patient is breathing comfortably, the patient denies any chest pain shortness of breath or cough no abdominal pain and no pain to the left foot/toe area Objective - Vital Signs Vital signs: Vital Signs Temp 98.3 F 08/27/21 16:00 Pulse 74 08/27/21 16:00 Resp 18 08/27/21 16:00 BP 103/73 08/27/21 16:00 Pulse Ox 96 08/27/21 16:00 Intake & Output 08/26/21 08/27/21 08/27/21 18:59 06:59 18:59 Intake Total 1023.833 88.833 454 Output Total 1225 900 600 Balance -201.167 -811.167 -146 Weight 113.8 kg Intake: Intake, IV Titration 87.833 88.833 100 Amount Furosemide 100 mg In 87.833 88.833 100 Sodium Chloride 0.9% 90 ml @ 10 MG/HR 10 mls/hr IV .Q10H [facility] Rx#: [id number] Oral 936 354 Output: Urine 1225 900 600 Other: Voiding Method Urinal Urinal - Exam GENERAL DESCRIPTION: Middle-age male up in the chair, in no distress RESPIRATORY SYSTEM: Unlabored breathing , decreased breath sounds at bases HEART: S1 S2 regular rate and rhythm , ABDOMEN: Soft , no tenderness EXTREMITIES: Left foot is currently dressed no drainage on the dressing - Labs CBC & Chem 7: 08/25/21 06:57 08/27/21 07:15 Labs: Abnormal Lab Results - Last 24 Hours (Table) 08/26/21 08/27/21 08/27/21 Range/Units 20:14 07:15 11:34 Carbon Dioxide 31 H (22-30) mmol/L BUN 29 H (9-20) mg/dL Glucose 72 L (74-99) mg/dL POC Glucose (mg/dL) 183 H 127 H (75-99) mg/dL Assessment and Plan (1) Foot osteomyelitis, left Current Visit: Yes Status: Acute Code(s): M86.9 - OSTEOMYELITIS, UNSPECIFIED SNOMED Code(s): 6649767951564315 Plan: 1-patient with left diabetic foot infection involving his fourth and fifth toe in this patient who is status post debridement with concern for underlying acute osteomyelitis, unfortunately no cultures have been done so we do not have any microbiological data waiting for further decision per vascular if the patient will need amputation or not , patient is covered with the Zosyn and continue lo zeke wound care per wound care team Time with Patient: Less than 30
[2021-08-27 16:43] LABS: Glucose,Whole Blood 162 mg/dL (75-99)
[2021-08-27 20:10] LABS: Glucose,Whole Blood 186 mg/dL (75-99)
[2021-08-27] MEDS: INSULIN DETEMIR (LEVEMIR) 100 UNIT/ML SYR SQ SCH (20:35)
[2021-08-27] MEDS: ATORVASTATIN 40 MG TAB PO SCH (20:35)
[2021-08-27] MEDS: CITALOPRAM HYDROBROMIDE 20 MG TAB PO SCH (20:35)
[2021-08-27] MEDS: MELATONIN 3 MG TABLET PO PRN (22:55)
[2021-08-27] MEDS: LACTULOSE 20 GM/30 ML CUP PO PRN (22:55)
[2021-08-28] MEDS: PIPERACILLIN-TAZOBACTAM 3.375 GM in SODIUM CHLORIDE 0.9% 100 ML IVPB SCH ×3 (03:31→17:16)
[2021-08-28 07:07] LABS: Glucose,Whole Blood 91 mg/dL (75-99)
[2021-08-28] MEDS: INSULIN ASPART (NovoLOG) 100 UNIT/ML VIAL SQ SCH ×4 (07:10→20:10)
[2021-08-28] MEDS: INSULIN DETEMIR (LEVEMIR) 100 UNIT/ML SYR SQ SCH ×2 (07:11→20:11)
[2021-08-28] MEDS: IPRATROPIUM-ALBUTEROL 3 ML NEB INHALATION SCH ×4 (07:52→21:04)
[2021-08-28] MEDS: BUDESONIDE 1 MG/2 ML NEBU INHALATION SCH ×2 (07:55→21:03)
[2021-08-28] MEDS: MORPHINE SULFATE IR 15 MG TABLET PO PRN ×2 (08:30→22:18)
[2021-08-28] MEDS: DULoxetine HCL 60 MG CAPSULE.DR PO SCH ×2 (08:31→20:10)
[2021-08-28] MEDS: lisinopriL 5 MG TAB PO SCH (08:31)
[2021-08-28] MEDS: ALPRAZolam 0.25 MG TAB PO PRN (08:31)
[2021-08-28] MEDS: ENOXAPARIN 40 MG/0.4 ML SYRINGE SQ SCH (08:31)
[2021-08-28] MEDS: METOPROLOL SUCCINATE (ER) 50 MG TAB.ER.24H PO SCH (08:31)
[2021-08-28] MEDS: ASPIRIN 81 MG PO SCH (08:31)
[2021-08-28] MEDS: SPIRONOLACTONE 25 MG TAB PO SCH (08:31)
[2021-08-28] MEDS: NICOTINE 7MG/24HR PATCH TRANSDERM SCH (08:31)
[2021-08-28] MEDS: ONDANSETRON 4 MG/2 ML VIAL IVP PRN (08:31)
[2021-08-28 11:03] LABS: Calcium 8.6 mg/dL (8.4-10.2); Potassium 4.5 mmol/L (3.5-5.1)
[2021-08-28 11:54] LABS: Glucose,Whole Blood 150 mg/dL (75-99)
[2021-08-28] MEDS: FUROSEMIDE 10 MG/ML 10 ML VIAL IV SCH ×2 (12:42→20:11)
[2021-08-28] MEDS: FUROSEMIDE 100 MG in SODIUM CHLORIDE 0.9% 90 ML IV SCH (12:44)
--- NOTE | 2021-08-28 14:02 | P.PN ---
Subjective Progress Note Date: 08/28/21 HISTORY OF PRESENT ILLNESS: This is a pleasant 51-year-old male past medical history significant for mild nonobstructive coronary artery disease, dilated cardiomyopathy, chronic systolic heart failure, status post AICD in 2014, type 2 diabetes, hypertension, dyslipidemia, chronic nicotine dependence, COPD, diabetic foot wounds. He follows in the office with Dr. Abbasi. We have been asked to see in consultation for congestive heart failure. Patient presents emergency department with worsening bilateral lower extremity edema and shortness of breath. He states that for about 2 weeks he has been having symptoms of extremity edema he states that he increased his lasix himself and has some improvement, however, his symptoms worsened again and he decided to come to the emergency department for further evaluation. He has not followed up with Dr. Abbasi since 07/2020. He is having symptoms of orthopnea. He denies chest pain, lightheadedness dizziness, syncope or near syncope. He also endorses a left foot wound that has not healed. DIAGNOSTICS Most recent Echo 01/2020 in the office revealed an EF of 23%, dilated cardiomyopathy, mild mitral regurgitation, mild tricuspid regurgitation EKG reveals sinus tachycardia, heart rate 117, LVH, poor R wave progression, no significant ST ST-T wave abnormalities. Telemetry tracings indicate sinus mechanism HR 110-120 Chest xray vascular congestion Current home medications include atorvastatin 40 mg nightly, Lasix 80 mg twice a day, Toprol succinate 50 mg daily, aspirin 81 mg daily Lasix, WBC 15.7, hemoglobin 14.3, platelets 235, sodium 136, potassium 3.9, BUN 17, serum creatinine 0.7, magnesium 2.0, proBNP 6230, COVID-19 negative Most recent cardiac catheterization 11/2017 revealed minimal coronary artery disease with mild irregularities in the RCA and mid LAD 08/24/2021 Patient examined this morning at the bedside. Patient denies chest pain or pressure. He currently denies shortness of breath. He continues to have lower extremity edema. He is maintained on a Lasix drip at 10 mg an hour. Patient has mildly tachycardic this morning. Blood pressure 116/73. Kidney function stable with a creatinine of 0.82. Echocardiogram completed revealing ejection fraction less than 20%, mild mitral regurgitation, mild tricuspid regurgitation, and severe pulmonary hypertension. 08/25/2021 Patient examined this morning at the bedside. Patient denies chest pain or pressure. Currently denying tenderness of breath. He continues to report lower extremity edema which he does not feel as improved since yesterday. He is maintained on a Lasix drip at 10 mg an hour. Kidney function remains stable with a creatinine of 1.19. Fluid balance over the last 24 hours is -1158 mL. Vital signs are stable. 08/28/2021 Patient examined this morning at the bedside. Patient denies chest pain or pressure. Reports mild SOB. He remains on a IV lasix infusion at 10mg/hr. Fluid balance over the last 24 hours is -981cc. Vital signs are stable. PHYSICAL EXAM: VITAL SIGNS: Reviewed. GENERAL: Well-developed in no acute distress. NECK: Supple. No JVD or thyromegaly LUNGS: Respirations even and unlabored. Lungs diminished bilaterally with crackles to bilateral bases. HEART: Regular rate and rhythm. S1 and S2 heard. Systolic murmur noted. EXTREMITIES: Normal range of motion. No clubbing or cyanosis. Peripheral pulses intact. 2+ bilateral lower extremity edema ASSESSMENT: Acute on chronic Heart failure with reduced ejection fraction, systolic Dilated, nonischemic cardiomyopathy status post AICD implantation in 2014 Type 2 diabetes Hypertension Dyslipidemia Chronic nicotine dependence COPD Diabetic foot wound Leukocytosis PLAN: Continue current cardiac medications Discontinue IV lasix infusion. Begin IV lasix 80mg q12 hours Monitor kidney function Accurate I&O Daily weights Further recommendations pending patient course Nurse practitioner note has been reviewed by physician. Signing provider agrees with the documented findings, assessment, and plan of care. Objective - Vital Signs Vital signs: Vital Signs Temp 97.9 F 08/28/21 08:00 Pulse 80 08/28/21 12:43 Resp 16 08/28/21 12:00 BP 99/65 08/28/21 12:00 Pulse Ox 100 08/28/21 12:00 Intake & Output 08/27/21 08/28/21 08/28/21 18:59 06:59 18:59 Intake Total 454 65 600 Output Total 600 900 550 Balance -146 -835 50 Weight 114.2 kg Intake: Intake, IV Titration 100 65 Amount Furosemide 100 mg In 100 65 Sodium Chloride 0.9% 90 ml @ 10 MG/HR 10 mls/hr IV .Q10H [facility] Rx#: [id number] Oral 354 600 Output: Urine 600 900 550 Other: Voiding Method Urinal Urinal - Labs CBC & Chem 7: 08/25/21 06:57 08/28/21 10:08 Labs: Abnormal Lab Results - Last 24 Hours (Table) 08/27/21 08/27/21 08/28/21 Range/Units 16:43 20:08 10:08 Carbon Dioxide 35 H (22-30) mmol/L BUN 35 H (9-20) mg/dL Glucose 169 H (74-99) mg/dL POC Glucose (mg/dL) 162 H 186 H (75-99) mg/dL 08/28/21 Range/Units 11:40 Carbon Dioxide (22-30) mmol/L BUN (9-20) mg/dL Glucose (74-99) mg/dL POC Glucose (mg/dL) 150 H (75-99) mg/dL
--- NOTE | 2021-08-28 14:34 | P.PN ---
Subjective Progress Note Date: 08/28/21 Should seen and examined has a follow-up for excisional debridement of the left foot. Overall he states he has been in any pain. He does have some surrounding cellulitis to the dorsal aspect of the foot and christine. He's been afebrile. Objective - Vital Signs Vital signs: Vital Signs Temp 97.9 F 08/28/21 08:00 Pulse 78 08/28/21 08:07 Resp 16 08/28/21 08:00 BP 100/66 08/28/21 08:00 Pulse Ox 97 08/28/21 08:00 Intake & Output 08/27/21 08/28/21 08/28/21 18:59 06:59 18:59 Intake Total 454 65 420 Output Total 600 900 550 Balance -146 -835 -130 Weight 114.2 kg Intake: Intake, IV Titration 100 65 Amount Furosemide 100 mg In 100 65 Sodium Chloride 0.9% 90 ml @ 10 MG/HR 10 mls/hr IV .Q10H [facility] Rx#: [id number] Oral 354 420 Output: Urine 600 900 550 Other: Voiding Method Urinal - Exam General appearance: The patient is alert, oriented, appears in no acute distress. HET: Head is normocephalic and atraumatic. Pupils are equal and reactive. Neck: Supple without lymphadenopathy. Trachea midline. No audible carotid bruit. Extremities: Extremities: Bilateral lower extremity edema. Bilateral feet with callusing and dry skin thick yellow toenails. Left foot with edema, erythema to the dorsal aspect. Diabetic wound to the lateral aspect of the left foot near the fifth metatarsal with tunneling, purlulent drainage, pale nonviable tissue in owund bed, and foul odor. Neurological: No focal deficits. Strength and sensation are grossly intact. - Labs CBC & Chem 7: 08/25/21 06:57 08/28/21 10:08 Labs: Abnormal Lab Results - Last 24 Hours (Table) 08/27/21 08/27/21 08/27/21 Range/Units 11:34 16:43 20:08 POC Glucose (mg/dL) 127 H 162 H 186 H (75-99) mg/dL Assessment and Plan Assessment: 1. Diabetic ulcer to the left foot status post surgical debridement 2. Possible osteomyelitis 3. Diabetes mellitus with neuropathy 4. History of coronary artery disease 5. History of congestive heart failure 6. Tobacco dependence to 2 packs per day Plan: 1. Continue antibiotics per recommendations from infectious disease 2. Patient is status post surgical debridement of the left foot wound 3. Continue local wound care per wound clinic recommendations Thank you for this consultation, we will continue to follow. The impression and plan of care has been dictated as directed. Dr. Trent I performed a history and examination of this patient, discussed the same with the dictator. I agree with the dictator's note ,documented as a scribe. Any additional findings or plans will be noted.
[2021-08-28 16:42] LABS: Glucose,Whole Blood 272 mg/dL (75-99)
[2021-08-28 19:59] LABS: Glucose,Whole Blood 207 mg/dL (75-99)
--- NOTE | 2021-08-28 20:03 | P.PN ---
Progress Note - Text Progress Note Date: 08/28/21 Chief Complaint: Abdominal pain History of presenting complaint: This is a pleasant 51-year-old patient of Dr. Hany Rodríguez. Chronic stable medical conditions include nonischemic CHF EF less than 20%, COPD, diabetes, GERD, hypertension, hyperlipidemia, obstructive sleep apnea with CPAP, AICD and a pacemaker. Patient lives with his 20-year-old son. Normally uses a cane to get about. did drink heavily in the past and quit 20 years ago. Still an active smoker. Patient now presents for noticing increasing swelling in the lower extremity. At least for 2 weeks. Normally uses 2 pillows. Some persistent supple disease. More orthopnea. Has a cough. No sputum. No fever no chills. Decreased appetite. More short of breath. Some wheezing. Patient also has a wound on the left foot for which she followed at the wound care center. Denies any drainage. But wants it to be looked at. Patient has continued to smoke. Admitted with acute CHF exacerbation EF less than 20%-put on Lasix drip, acute COPD exacerbation-put on DuoNeb and nebulized steroids, diabetic foot wound for which vascular and wound care consulted. IV Zosyn. Fredy wrap lower extremity. August 17: Excisional debridement of nonviable tissue nonhealing wound left foot plantar surface carried out by Dr. Trent. Arterial Doppler ultrasound demonstrated severe tibial artery occlusive disease. August 28: Patient is a Lasix drip is being changed over to IV Lasix bolus. Patient's been over 4 L in negative fluid balance. Breathing slightly better. Lower extremity edema present. Dressing of left foot. Eating all his meals. Review of systems: Was done for constitutional, cardiovascular, GI, pulmonary. relevant finding as above Active Medications Acetaminophen (Acetaminophen Tab 325 Mg Tab) 650 mg PO Q6HR PRN PRN Reason: Mild Pain or Fever > 100.5 Albuterol/Ipratropium (Ipratropium-Albuterol 3 Ml Neb) 3 ml INHALATION RT-QID [facility] Last Admin: 08/28/21 16:24 Dose: 3 ml Documented by: Alprazolam (Alprazolam 0.25 Mg Tab) 0.25 mg PO Q6HR PRN PRN Reason: Anxiety Last Admin: 08/28/21 08:31 Dose: 0.25 mg Documented by: Aspirin (Aspirin 81 Mg) 81 mg PO DAILY [facility] Last Admin: 08/28/21 08:31 Dose: 81 mg Documented by: Atorvastatin Calcium (Atorvastatin 40 Mg Tab) 40 mg PO [facility] Last Admin: 08/27/21 20:35 Dose: 40 mg Documented by: Budesonide (Budesonide 1 Mg/2 Ml Nebu) 1 mg INHALATION RT-BID [facility] Last Admin: 08/28/21 07:55 Dose: 1 mg Documented by: Calcium Carbonate/Glycine (Calcium Carbonate 500 Mg Chewable) 1,000 mg PO Q4HR PRN PRN Reason: Dyspepsia Last Admin: 08/27/21 16:12 Dose: 1,000 mg Documented by: Citalopram Hydrobromide (Citalopram Hydrobromide 20 Mg Tab) 40 mg PO [facility] Last Admin: 08/27/21 20:35 Dose: 40 mg Documented by: Duloxetine HCl (Duloxetine Hcl 60 Mg Capsule.Dr) 60 mg PO BID [facility] Last Admin: 08/28/21 08:31 Dose: 60 mg Documented by: Enoxaparin Sodium (Enoxaparin 40 Mg/0.4 Ml Syringe) 40 mg SQ DAILY [facility] Last Admin: 08/28/21 08:31 Dose: 40 mg Documented by: Furosemide (Furosemide 10 Mg/Ml 10 Ml Vial) 80 mg IV Q12HR [facility] Last Admin: 08/28/21 12:42 Dose: 80 mg Documented by: Piperacillin Sod/Tazobactam (Sod 3.375 gm/ Sodium Chloride) 100 mls @ 25 mls/hr IVPB Q8H [facility] Last Admin: 08/28/21 17:16 Dose: 25 mls/hr Documented by: Insulin Aspart (Insulin Aspart (Novolog) 100 Unit/Ml Vial) 0 unit SQ [facility]; Protocol Last Admin: 08/28/21 17:15 Dose: 6 unit Documented by: Insulin Detemir (Insulin Detemir (Levemir) 100 Unit/Ml Syr) 30 unit SQ BID@0700,2100 [facility] Last Admin: 08/28/21 07:11 Dose: 30 unit Documented by: Lactulose (Lactulose 20 Gm/30 Ml Cup) 20 gm PO DAILY PRN PRN Reason: Constipation Last Admin: 08/27/21 22:55 Dose: 20 gm Documented by: Lisinopril (Lisinopril 5 Mg Tab) 5 mg PO DAILY [facility] Last Admin: 08/28/21 08:31 Dose: 5 mg Documented by: Melatonin (Melatonin 3 Mg Tablet) 3 mg PO HS PRN PRN Reason: Insomnia Last Admin: 08/27/21 22:55 Dose: 3 mg Documented by: Metoprolol Succinate (Metoprolol Succinate (Er) 50 Mg Tab.Er.24h) 100 mg PO DAILY [facility] Last Admin: 08/28/21 08:31 Dose: 100 mg Documented by: Morphine Sulfate (Morphine Sulfate Ir 15 Mg Tablet) 30 mg PO QID PRN PRN Reason: Pain Last Admin: 08/28/21 08:30 Dose: 30 mg Documented by: Naloxone HCl (Naloxone 0.4 Mg/Ml 1 Ml Vial) 0.2 mg IV Q2M PRN PRN Reason: Opioid Reversal Nicotine (Nicotine 7mg/24hr Patch) 1 patch TRANSDERM DAILY [facility] Last Admin: 08/28/21 08:31 Dose: 1 patch Documented by: Ondansetron HCl (Ondansetron 4 Mg/2 Ml Vial) 4 mg IVP Q8HR PRN PRN Reason: Nausea And Vomiting Last Admin: 08/28/21 08:31 Dose: 4 mg Documented by: Spironolactone (Spironolactone 25 Mg Tab) 25 mg PO DAILY [facility] Last Admin: 08/28/21 08:31 Dose: 25 mg Documented by: Past medical history to include: COPD, CHF-EF 20%, diabetes, GERD, hyperlipidemia, hypertension,(s) sleep apnea uses CPAP sometimes, ischemic cardiomyopathy, chronic cervical back pain and DJD, diabetic foot wounds Social history: Lives with his 20 -year-old son. Does use a cane. Disabled. 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 Been smoking 2 packs a day for most of his life now down to quarter pack a day. Heavy drinking in the past quit 20 years ago. 4 hits of marijuana nightly. Family history: Reviewed, noncontributory to presentation Physical examination: VITAL SIGNS: 97.4, 67, 18, 95-62, 97% room air GENERAL: , sitting at the age of the bed, breathing better EYES: Pupils equal. Conjunctiva normall. HEENT: External appearance of nose and ears normal, oral cavity grossly normal. NECK: JVD unable to assess; masses not palpable. HEART: First and second heart sounds are normal; significant edema present. LUNGS: Respiratory rate increased; diminished breath sounds ABDOMEN: Soft, mild distention nontender, liver spleen not palpable, no masses palpable. PSYCH: Alert and oriented x3; mood and affect anxious. MUSCULOSKELETAL:No Clubbing/cyanosis;muscles-grossly intact DERMATOLOGICAL: Wound on the plantar surface of left foot. Ichthyosis especially lower extremity bilateral NEUROLOGICAL: Cranial nerves grossly intact; no facial asymmetry, power and sensation grossly intact. INVESTIGATIONS, reviewed in the clinical context: August 28: Sodium 137 potassium 4.5 creatinine 1.18 August 24: Sodium 134 potassium 3.6 creatinine 0.82 Left foot x-ray: Dorsal dislocation at the fifth digit at the MTP joint. Que stionable osteomyelitis/fracture fragment White count 15.7 hemoglobin 14.3 platelets 235 sodium 136 potassium 3.9 BUN 17 creatinine 0.74. Blood glucose 69 Total bilirubin 1.6 AST 126 ALT 162 ProBNP 6330 Coronavirus PCF: Not detected 2-D echocardiogram: Moderate concentric LVH. EF less than 20% right ventricle [id number] enlargement. Severe pulmonary hypertension EKG tracing personally reviewed by me-sinus tachycardia. Rate 117. Some ST segment changes Chest x-ray film personally reviewed by me-george lindo. Venous prominence. AICD Assessment and plan: -Acute on chronic congestive heart failure exacerbation from nonischemic cardiomyopathy systolic dysfunction EF less than 20%: Slow to respond IV Lasix drip changed to 80 mg twice a day.. Fluid restriction 1500 mL Strict I's and O's. Toprol. Aldactone AICD -Acute COPD exacerbation in a current smoker: Slow to respond, DuoNeb 4 times a day. Nebulized Pulmicort -Diabetes mellitus type 2 chronically on insulin, uncontrolled with hyperglycemia Levemir 40 units subcu twice a day. Diabetic diet. Accu-Cheks and sliding scale -Hyperlipidemia Lipitor 40 mg daily at bedtime -Essential hypertension Toprol-XL 50 mg a day -Obstructive sleep apnea sometimes uses CPAP machine -Diabetic peripheral neuropathy Cymbalta -Anxiety Celexa, Cymbalta -DJD Tylenol when necessary -Chronic nicotine dependence patient cigarette smoker Nicotine patch 7 -AICD -Acute on Chronic left plantar diabetic foot wound : Slow to respond. IV Zosyn. Status post debridement by Dr. Trent on August 25. -Peripheral arterial disease with severe obstructive disease to tibial artery Patient already on aspirin, Lipitor. Add xarelto Lasix IV 80 mg twice a day. Add xarelto for PAD. Continue IV Zosyn. Continue fluid restriction. Repeat chest x-ray.
[2021-08-28] MEDS: CITALOPRAM HYDROBROMIDE 20 MG TAB PO SCH (20:10)
[2021-08-28] MEDS: ATORVASTATIN 40 MG TAB PO SCH (20:10)
--- NOTE | 2021-08-28 22:30 | P.PN ---
Subjective Progress Note Date: 08/28/21 Principal diagnosis: Left foot osteo-myelitis Patient is a 51-year-old male with a past medical history significant for diabetes mellitus presented to hospital with a nonhealing wound to the left fifth toe with abnormal x-ray and this patient was status post I&D by vascular surgery completed on 08/25/2021. On today's evaluation that is 08/28/2021, the patient denies any fever or chills, the patient is breathing comfortably, the patient denies chest pain shortness of breath or cough , the patient denies nausea vomiting abdominal pain and pain to the left foot/toe area is currently controlled Objective - Vital Signs Vital signs: Vital Signs Temp 97.4 F L 08/28/21 16:00 Pulse 75 08/28/21 21:04 Resp 18 08/28/21 20:00 BP 108/73 08/28/21 20:00 Pulse Ox 97 08/28/21 20:00 Intake & Output 08/28/21 08/28/21 08/29/21 06:59 18:59 06:59 Intake Total 65 940 Output Total 900 825 Balance -835 115 Weight 114.2 kg Intake: Intake, IV Titration 65 100 Amount Furosemide 100 mg In 65 Sodium Chloride 0.9% 90 ml @ 10 MG/HR 10 mls/hr IV .Q10H [facility] Rx#: [id number] Piperacillin-Tazobactam 3 100 .375 gm In Sodium Chloride 0.9% 100 ml @ 25 mls/hr IVPB Q8H [facility] Rx#: [id number] Oral 840 Output: Urine 900 825 Other: Voiding Method Urinal - Exam GENERAL DESCRIPTION: Middle-age male up in the chair, in no distress RESPIRATORY SYSTEM: Unlabored breathing , decreased breath sounds at bases HEART: S1 S2 regular rate and rhythm , ABDOMEN: Soft , no tenderness EXTREMITIES: Left foot is currently dressed no drainage on the dressing - Labs CBC & Chem 7: 08/25/21 06:57 08/28/21 10:08 Labs: Abnormal Lab Results - Last 24 Hours (Table) 08/28/21 08/28/21 08/28/21 Range/Units 10:08 11:40 16:38 Carbon Dioxide 35 H (22-30) mmol/L BUN 35 H (9-20) mg/dL Glucose 169 H (74-99) mg/dL POC Glucose (mg/dL) 150 H 272 H (75-99) mg/dL 08/28/21 Range/Units 19:58 Carbon Dioxide (22-30) mmol/L BUN (9-20) mg/dL Glucose (74-99) mg/dL POC Glucose (mg/dL) 207 H (75-99) mg/dL Assessment and Plan (1) Foot osteomyelitis, left Current Visit: Yes Status: Acute Code(s): M86.9 - OSTEOMYELITIS, UNSPECIFIED SNOMED Code(s): 9544211409694622 Plan: 1-patient with left diabetic foot infection involving his fourth and fifth toe in this patient who is status post debridement with concern for underlying acute osteomyelitis, unfortunately no cultures have been done so we do not have any microbiological data waiting for further decision per vascular if the patient will need amputation or not , patient to continue with the Zosyn and continue local wound care per wound care team Time with Patient: Less than 30
[2021-08-28] MEDS: LACTULOSE 20 GM/30 ML CUP PO PRN (23:23)
[2021-08-28] MEDS: MELATONIN 3 MG TABLET PO PRN (23:24)
[2021-08-29] MEDS: PIPERACILLIN-TAZOBACTAM 3.375 GM in SODIUM CHLORIDE 0.9% 100 ML IVPB SCH ×3 (03:30→20:38)
[2021-08-29] MEDS: ALPRAZolam 0.25 MG TAB PO PRN ×2 (03:30→16:28)
[2021-08-29 07:07] LABS: Glucose,Whole Blood 67 mg/dL (75-99)
[2021-08-29 07:33] LABS: Glucose,Whole Blood 69 mg/dL (75-99)
[2021-08-29 07:50] LABS: Glucose,Whole Blood 66 mg/dL (75-99)
[2021-08-29 07:59] LABS: Basophils # (A) 0.1 k/uL (0-0.2); Basophils % (A) 1 %; Eosinophils # (A) 0.4 k/uL (0-0.7); Eosinophils % (A) 4 %; HCT 47.2 % (39.0-53.0); HGB 14.1 gm/dL (13.0-17.5); Hypochromasia Marked; Lymphocytes # (A) 2.3 k/uL (1.0-4.8); Lymphocytes % (A) 23 %; MCH 26.8 pg (25.0-35.0); MCHC 29.9 g/dL (31.0-37.0); MCV 89.6 fL (80.0-100.0); Mean Platelet Volume 8.6; Monocytes # (A) 0.7 k/uL (0-1.0); Monocytes % (A) 7 %; Neutrophils # (A) 6.3 k/uL (1.3-7.7); Neutrophils % (A) 63 %; Platelet Count 270 k/uL (150-450); RBC 5.27 m/uL (4.30-5.90); RDW 15.3 % (11.5-15.5)
[2021-08-29] MEDS: IPRATROPIUM-ALBUTEROL 3 ML NEB INHALATION SCH ×4 (08:03→19:54)
[2021-08-29] MEDS: BUDESONIDE 1 MG/2 ML NEBU INHALATION SCH ×2 (08:03→19:55)
[2021-08-29 08:05] LABS: Glucose,Whole Blood 85 mg/dL (75-99)
[2021-08-29 08:19] LABS: African American GFR (CKD) >90 (>60 ml/min/1.73 sqM); Anion Gap 6 mmol/L; Blood Urea Nitrogen 32 mg/dL (9-20); Calcium 8.7 mg/dL (8.4-10.2); Carbon Dioxide 30 mmol/L (22-30); Chloride 101 mmol/L (98-107); Non-African American GFR(CKD) 78 (>60 ml/min/1.73 sqM); Potassium 3.9 mmol/L (3.5-5.1); Sodium 137 mmol/L (137-145)
--- NOTE | 2021-08-29 08:30 | XR ---
EXAMINATION TYPE: XR chest 2V DATE OF EXAM: 08/29/2021 COMPARISON: Chest x-ray 08/23/2021 HISTORY: Follow-up congestive heart failure TECHNIQUE: Frontal and lateral views of the chest are obtained. FINDINGS: A generator is present in the left pectoral region with lead in the right ventricle. Cardi ac mediastinal silhouette is stable, heart is enlarged. Right hemidiaphragm remains elevated. No evid ent pneumothorax or pleural effusion. Bandlike area of probable subsegmental basilar atelectatic chavez ge is noted on the right. Interstitium is mildly increased. Central vascularity shows a similar appea mikaela. IMPRESSION: Probable basilar atelectasis, cardiomegaly, there may be a component of interstitial constance ma.
[2021-08-29] MEDS: INSULIN DETEMIR (LEVEMIR) 100 UNIT/ML SYR SQ SCH ×2 (08:47→20:36)
[2021-08-29] MEDS: INSULIN ASPART (NovoLOG) 100 UNIT/ML VIAL SQ SCH ×4 (08:47→20:36)
[2021-08-29 08:55] LABS: Glucose 49 mg/dL (74-99)
[2021-08-29] MEDS: ASPIRIN 81 MG PO SCH (08:56)
[2021-08-29] MEDS: METOPROLOL SUCCINATE (ER) 50 MG TAB.ER.24H PO SCH (08:56)
[2021-08-29] MEDS: ENOXAPARIN 40 MG/0.4 ML SYRINGE SQ SCH (08:56)
[2021-08-29] MEDS: SPIRONOLACTONE 25 MG TAB PO SCH (08:56)
[2021-08-29] MEDS: DULoxetine HCL 60 MG CAPSULE.DR PO SCH ×2 (08:56→20:36)
[2021-08-29] MEDS: FUROSEMIDE 10 MG/ML 10 ML VIAL IV SCH ×2 (08:57→20:37)
[2021-08-29 11:36] LABS: Glucose,Whole Blood 122 mg/dL (75-99)
--- NOTE | 2021-08-29 12:10 | P.PN ---
Subjective Progress Note Date: 08/29/21 HISTORY OF PRESENT ILLNESS: This is a pleasant 51-year-old male past medical history significant for mild nonobstructive coronary artery disease, dilated cardiomyopathy, chronic systolic heart failure, status post AICD in 2014, type 2 diabetes, hypertension, dyslipidemia, chronic nicotine dependence, COPD, diabetic foot wounds. He follows in the office with Dr. Abbasi. We have been asked to see in consultation for congestive heart failure. Patient presents emergency department with worsening bilateral lower extremity edema and shortness of breath. He states that for about 2 weeks he has been having symptoms of extremity edema he states that he increased his lasix himself and has some improvement, however, his symptoms worsened again and he decided to come to the emergency department for further evaluation. He has not followed up with Dr. Abbasi since 07/2020. He is having symptoms of orthopnea. He denies chest pain, lightheadedness dizziness, syncope or near syncope. He also endorses a left foot wound that has not healed. DIAGNOSTICS Most recent Echo 01/2020 in the office revealed an EF of 23%, dilated cardiomyopathy, mild mitral regurgitation, mild tricuspid regurgitation EKG reveals sinus tachycardia, heart rate 117, LVH, poor R wave progression, no significant ST ST-T wave abnormalities. Telemetry tracings indicate sinus mechanism HR 110-120 Chest xray vascular congestion Current home medications include atorvastatin 40 mg nightly, Lasix 80 mg twice a day, Toprol succinate 50 mg daily, aspirin 81 mg daily Lasix, WBC 15.7, hemoglobin 14.3, platelets 235, sodium 136, potassium 3.9, BUN 17, serum creatinine 0.7, magnesium 2.0, proBNP 6230, COVID-19 negative Most recent cardiac catheterization 11/2017 revealed minimal coronary artery disease with mild irregularities in the RCA and mid LAD 08/24/2021 Patient examined this morning at the bedside. Patient denies chest pain or pressure. He currently denies shortness of breath. He continues to have lower extremity edema. He is maintained on a Lasix drip at 10 mg an hour. Patient has mildly tachycardic this morning. Blood pressure 116/73. Kidney function stable with a creatinine of 0.82. Echocardiogram completed revealing ejection fraction less than 20%, mild mitral regurgitation, mild tricuspid regurgitation, and severe pulmonary hypertension. 08/25/2021 Patient examined this morning at the bedside. Patient denies chest pain or pressure. Currently denying tenderness of breath. He continues to report lower extremity edema which he does not feel as improved since yesterday. He is maintained on a Lasix drip at 10 mg an hour. Kidney function remains stable with a creatinine of 1.19. Fluid balance over the last 24 hours is -1158 mL. Vital signs are stable. 08/28/2021 Patient examined this morning at the bedside. Patient denies chest pain or pressure. Reports mild SOB. He remains on a IV lasix infusion at 10mg/hr. Fluid balance over the last 24 hours is -981cc. Vital signs are stable. 08/29/2021 Patient examined this morning at the bedside. Patient denies chest pain or pressure. Patient currently denies shortness of breath. He remains on IV Lasix 80 mg every 12 hours. Creatinine remains stable today at 1.08. Fluid balance over the last 24 hours is -1435 mL. Patient's lower extremity edema this appears to be slowly improving. PHYSICAL EXAM: VITAL SIGNS: Reviewed. GENERAL: Well-developed in no acute distress. NECK: Supple. No JVD or thyromegaly LUNGS: Respirations even and unlabored. Lungs diminished bilaterally. HEART: Regular rate and rhythm. S1 and S2 heard. Systolic murmur noted. EXTREMITIES: Normal range of motion. No clubbing or cyanosis. Peripheral pulses intact. 2+ bilateral lower extremity edema ASSESSMENT: Acute on chronic Heart failure with reduced ejection fraction, systolic Dilated, nonischemic cardiomyopathy status post AICD implantation in 2014 Type 2 diabetes Hypertension Dyslipidemia Chronic nicotine dependence COPD Diabetic foot wound Leukocytosis PLAN: Continue current cardiac medications Continue IV Lasix Monitor kidney function Accurate I&O Daily weights Patient is currently stable from a cardiac standpoint Further recommendations pending patient course Nurse practitioner note has been reviewed by physician. Signing provider agrees with the documented findings, assessment, and plan of care. Objective - Vital Signs Vital signs: Vital Signs Temp 98.1 F 08/29/21 11:43 Pulse 73 08/29/21 11:43 Resp 15 08/29/21 11:43 BP 94/53 08/29/21 11:43 Pulse Ox 94 L 08/29/21 11:43 Intake & Output 08/28/21 08/29/21 08/29/21 18:59 06:59 18:59 Intake Total 940 Output Total 825 1550 Balance 115 -1550 Weight 114.9 kg Intake: Intake, IV Titration 100 Amount Piperacillin-Tazobactam 3 100 .375 gm In Sodium Chloride 0.9% 100 ml @ 25 mls/hr IVPB Q8H [facility] Rx#: [id number] Oral 840 Output: Urine 825 1550 Other: Voiding Method Urinal Urinal - Labs CBC & Chem 7: 08/29/21 07:14 08/29/21 07:14 Labs: Abnormal Lab Results - Last 24 Hours (Table) 08/28/21 08/28/21 08/29/21 Range/Units 16:38 19:58 07:06 MCHC (31.0-37.0) g/dL BUN (9-20) mg/dL Glucose (74-99) mg/dL POC Glucose (mg/dL) 272 H 207 H 67 L (75-99) mg/dL 08/29/21 08/29/21 08/29/21 Range/Units 07:14 07:14 07:32 MCHC 29.9 L (31.0-37.0) g/dL BUN 32 H (9-20) mg/dL Glucose 49 L* (74-99) mg/dL POC Glucose (mg/dL) 69 L (75-99) mg/dL 08/29/21 08/29/21 Range/Units 07:49 11:34 MCHC (31.0-37.0) g/dL BUN (9-20) mg/dL Glucose (74-99) mg/dL POC Glucose (mg/dL) 66 L 122 H (75-99) mg/dL
[2021-08-29] MEDS: lisinopriL 5 MG TAB PO SCH (12:18)
[2021-08-29] MEDS: NICOTINE 7MG/24HR PATCH TRANSDERM SCH (12:18)
[2021-08-29 12:34] VITALS: BMI 36.3
--- NOTE | 2021-08-29 14:39 | P.PN ---
Subjective Progress Note Date: 08/29/21 Patient seen and examined as a follow-up for excisional debridement of the left foot. Denies any pain in his foot. He's been afebrile. WBC 10.0 hemoglobin 14.1 Objective - Vital Signs Vital signs: Vital Signs Temp 97.9 F 08/29/21 08:00 Pulse 72 08/29/21 10:50 Resp 16 08/29/21 09:44 BP 95/62 08/29/21 08:00 Pulse Ox 99 08/29/21 08:00 Intake & Output 08/28/21 08/29/21 08/29/21 18:59 06:59 18:59 Intake Total 940 Output Total 825 1550 Balance 115 -1550 Weight 114.9 kg Intake: Intake, IV Titration 100 Amount Piperacillin-Tazobactam 3 100 .375 gm In Sodium Chloride 0.9% 100 ml @ 25 mls/hr IVPB Q8H [facility] Rx#: [id number] Oral 840 Output: Urine 825 1550 Other: Voiding Method Urinal Urinal - Exam General appearance: The patient is alert, oriented, appears in no acute distress. HET: Head is normocephalic and atraumatic. Pupils are equal and reactive. Neck: Supple without lymphadenopathy. Trachea midline. No audible carotid bruit. Extremities: Extremities: Bilateral lower extremity edema. Bilateral feet with callusing and dry skin thick yellow toenails. Excisional debridement wound to left foot with minimal drainage, pink tissue. Neurological: No focal deficits. Strength and sensation are grossly intact. - Labs CBC & Chem 7: 08/29/21 07:14 08/29/21 07:14 Labs: Abnormal Lab Results - Last 24 Hours (Table) 08/28/21 08/28/21 08/28/21 Range/Units 11:40 16:38 19:58 MCHC (31.0-37.0) g/dL BUN (9-20) mg/dL Glucose (74-99) mg/dL POC Glucose (mg/dL) 150 H 272 H 207 H (75-99) mg/dL 08/29/21 08/29/21 08/29/21 Range/Units 07:06 07:14 07:14 MCHC 29.9 L (31.0-37.0) g/dL BUN 32 H (9-20) mg/dL Glucose 49 L* (74-99) mg/dL POC Glucose (mg/dL) 67 L (75-99) mg/dL 08/29/21 08/29/21 Range/Units 07:32 07:49 MCHC (31.0-37.0) g/dL BUN (9-20) mg/dL Glucose (74-99) mg/dL POC Glucose (mg/dL) 69 L 66 L (75-99) mg/dL Assessment and Plan Assessment: 1. Diabetic ulcer to the left foot status post surgical debridement 2. Possible osteomyelitis 3. Diabetes mellitus with neuropathy 4. History of coronary artery disease 5. History of congestive heart failure 6. Tobacco dependence to 2 packs per day Plan: 1. Continue antibiotics per recommendations from infectious disease 2. Patient is status post surgical debridement of the left foot wound 3. Continue local wound care per wound clinic 4. Consider possible lower extremity angiogram 5. Patient may require amputation in the future if he is unable to heal Thank you for this consultation, we will continue to follow. The impression and plan of care has been dictated as directed. Dr. Hand I performed a history and examination of this patient, discussed the same with the dictator. I agree with the dictator's note ,documented as a scribe. Any additional findings or plans will be noted.
[2021-08-29] MEDS: ONDANSETRON 4 MG/2 ML VIAL IVP PRN (16:28)
[2021-08-29] MEDS: MORPHINE SULFATE IR 15 MG TABLET PO PRN ×2 (16:28→22:45)
[2021-08-29 16:50] LABS: Glucose,Whole Blood 187 mg/dL (75-99)
--- NOTE | 2021-08-29 17:20 | P.PN ---
Progress Note - Text Progress Note Date: 08/29/21 Chief Complaint: Abdominal pain History of presenting complaint: This is a pleasant 51-year-old patient of Dr. Hany Rodríguez. Chronic stable medical conditions include nonischemic CHF EF less than 20%, COPD, diabetes, GERD, hypertension, hyperlipidemia, obstructive sleep apnea with CPAP, AICD and a pacemaker. Patient lives with his 20-year-old son. Normally uses a cane to get about. did drink heavily in the past and quit 20 years ago. Still an active smoker. Patient now presents for noticing increasing swelling in the lower extremity. At least for 2 weeks. Normally uses 2 pillows. Some persistent supple disease. More orthopnea. Has a cough. No sputum. No fever no chills. Decreased appetite. More short of breath. Some wheezing. Patient also has a wound on the left foot for which she followed at the wound care center. Denies any drainage. But wants it to be looked at. Patient has continued to smoke. Admitted with acute CHF exacerbation EF less than 20%-put on Lasix drip, acute COPD exacerbation-put on DuoNeb and nebulized steroids, diabetic foot wound for which vascular and wound care consulted. IV Zosyn. Fredy wrap lower extremity. August 17: Excisional debridement of nonviable tissue nonhealing wound left foot plantar surface carried out by Dr. Trent. Arterial Doppler ultrasound demonstrated severe tibial artery occlusive disease. August 28: Patient is a Lasix drip is being changed over to IV Lasix bolus. Patient's been over 4 L in negative fluid balance. Breathing slightly better. Lower extremity edema present. Dressing of left foot. Eating all his meals. August 29: Breathing a bit better. On IV Lasix 80 mg every 12. Good urine output. Edema present. Foot wound discussed with Dr. Hand. No deep cultures were sent and it was debrided. Discussed results of arterial Doppler ultrasound. Patient will benefit from an angiogram to better in terms of outcome and further intervention. Hypoglycemic this morning. Morning dose of Levemir held. Will change Levemir to 46 units daily at bedtime. About 6 L in negative fluid balance Review of systems: Was done for constitutional, cardiovascular, GI, pulmonary. relevant finding as above Active Medications Acetaminophen (Acetaminophen Tab 325 Mg Tab) 650 mg PO Q6HR PRN PRN Reason: Mild Pain or Fever > 100.5 Albuterol/Ipratropium (Ipratropium-Albuterol 3 Ml Neb) 3 ml INHALATION RT-QID [facility] Last Admin: 08/29/21 16:15 Dose: 3 ml Documented by: Alprazolam (Alprazolam 0.25 Mg Tab) 0.25 mg PO Q6HR PRN PRN Reason: Anxiety Last Admin: 08/29/21 16:28 Dose: 0.25 mg Documented by: Aspirin (Aspirin 81 Mg) 81 mg PO DAILY [facility] Last Admin: 08/29/21 08:56 Dose: 81 mg Documented by: Atorvastatin Calcium (Atorvastatin 40 Mg Tab) 40 mg PO HS [facility] Last Admin: 08/28/21 20:10 Dose: 40 mg Documented by: Budesonide (Budesonide 1 Mg/2 Ml Nebu) 1 mg INHALATION RT-BID [facility] Last Admin: 08/29/21 08:03 Dose: 1 mg Documented by: Calcium Carbonate/Glycine (Calcium Carbonate 500 Mg Chewable) 1,000 mg PO Q4HR PRN PRN Reason: Dyspepsia Last Admin: 08/27/21 16:12 Dose: 1,000 mg Documented by: Citalopram Hydrobromide (Citalopram Hydrobromide 20 Mg Tab) 40 mg PO HS [facility] Last Admin: 08/28/21 20:10 Dose: 40 mg Documented by: Duloxetine HCl (Duloxetine Hcl 60 Mg Capsule.Dr) 60 mg PO BID [facility] Last Admin: 08/29/21 08:56 Dose: 60 mg Documented by: Enoxaparin Sodium (Enoxaparin 40 Mg/0.4 Ml Syringe) 40 mg SQ DAILY [facility] Last Admin: 08/29/21 08:56 Dose: 40 mg Documented by: Furosemide (Furosemide 10 Mg/Ml 10 Ml Vial) 80 mg IV Q12HR [facility] Last Admin: 08/29/21 08:57 Dose: 80 mg Documented by: Piperacillin Sod/Tazobactam (Sod 3.375 gm/ Sodium Chloride) 100 mls @ 25 mls/hr IVPB Q8H [facility] Last Admin: 08/29/21 12:20 Dose: 25 mls/hr Documented by: Insulin Aspart (Insulin Aspart (Novolog) 100 Unit/Ml Vial) 0 unit SQ ACHS [facility]; Protocol Last Admin: 08/29/21 17:04 Dose: Not Given Documented by: Insulin Detemir (Insulin Detemir (Levemir) 100 Unit/Ml Syr) 30 unit SQ BID@0700,2100 [facility] Last Admin: 08/29/21 08:47 Dose: Not Given Documented by: Lactulose (Lactulose 20 Gm/30 Ml Cup) 20 gm PO DAILY PRN PRN Reason: Constipation Last Admin: 08/28/21 23:23 Dose: 20 gm Documented by: Lisinopril (Lisinopril 5 Mg Tab) 5 mg PO DAILY [facility] Last Admin: 08/29/21 12:18 Dose: Not Given Documented by: Melatonin (Melatonin 3 Mg Tablet) 3 mg PO HS PRN PRN Reason: Insomnia Last Admin: 08/28/21 23:24 Dose: 3 mg Documented by: Metoprolol Succinate (Metoprolol Succinate (Er) 50 Mg Tab.Er.24h) 100 mg PO DAILY [facility] Last Admin: 08/29/21 08:56 Dose: 100 mg Documented by: Morphine Sulfate (Morphine Sulfate Ir 15 Mg Tablet) 30 mg PO QID PRN PRN Reason: Pain Last Admin: 08/29/21 16:28 Dose: 30 mg Documented by: Naloxone HCl (Naloxone 0.4 Mg/Ml 1 Ml Vial) 0.2 mg IV Q2M PRN PRN Reason: Opioid Reversal Nicotine (Nicotine 7mg/24hr Patch) 1 patch TRANSDERM DAILY [facility] Last Admin: 08/29/21 12:18 Dose: 1 patch Documented by: Ondansetron HCl (Ondansetron 4 Mg/2 Ml Vial) 4 mg IVP Q8HR PRN PRN Reason: Nausea And Vomiting Last Admin: 08/29/21 16:28 Dose: 4 mg Documented by: Spironolactone (Spironolactone 25 Mg Tab) 25 mg PO DAILY [facility] Last Admin: 08/29/21 08:56 Dose: 25 mg Documented by: Past medical history to include: COPD, CHF-EF 20%, diabetes, GERD, hyperlipidemia, hypertension,(s) sleep apnea uses CPAP sometimes, ischemic cardiomyopathy, chronic cervical back pain and DJD, diabetic foot wounds Social history: Lives with his 20 -year-old son. Does use a cane. Disabled. 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 Been smoking 2 packs a day for most of his life now down to quarter pack a day. Heavy drinking in the past quit 20 years ago. 4 hits of marijuana nightly. Family history: Reviewed, noncontributory to presentation Physical examination: VITAL SIGNS: 98.1, 73, 15, 94/53, 94% room air GENERAL: , Laying in bed breathing better EYES: Pupils equal. Conjunctiva normall. HEENT: External appearance of nose and ears normal, oral cavity grossly normal. NECK: JVD unable to assess; masses not palpable. HEART: First and second heart sounds are normal; significant edema present. LUNGS: Respiratory rate increased; diminished breath sounds ABDOMEN: Soft, mild distention nontender, liver spleen not palpable, no masses palpable. PSYCH: Alert and oriented x3; mood and affect anxious. MUSCULOSKELETAL:No Clubbing/cyanosis;muscles-grossly intact DERMATOLOGICAL: Wound on the plantar surface/lateral of left foot. Ichthyosis especially lower extremity bilateral NEUROLOGICAL: Cranial nerves grossly intact; no facial asymmetry, decreased sensation distally INVESTIGATIONS, reviewed in the clinical context: August 28: Sodium 137 potassium 4.5 creatinine 1.18 August 24: Sodium 134 potassium 3.6 creatinine 0.82 Left foot x-ray: Dorsal dislocation at the fifth digit at the MTP joint. Questionable osteomyelitis/fracture fragment White count 15.7 hemoglobin 14.3 platelets 235 sodium 136 potassium 3.9 BUN 17 creatinine 0.74. Blood glucose 69 Total bilirubin 1.6 AST 126 ALT 162 ProBNP 6330 Coronavirus PCF: Not detected 2-D echocardiogram: Moderate concentric LVH. EF less than 20% right ventricle [id number] enlargement. Severe pulmonary hypertension EKG tracing personally reviewed by me-sinus tachycardia. Rate 117. Some ST segment changes Chest x-ray film personally reviewed by me-george lindo. Venous prominence. AICD Assessment and plan: -Acute on chronic congestive heart failure exacerbation from nonischemic cardiomyopathy systolic dysfunction EF less than 20%: Slow to respond Lasix drip discontinued. IV Lasix - 80 mg twice a day.. Fluid restriction 1500 mL Strict I's and O's. Toprol. Aldactone AICD -Acute COPD exacerbation in a current smoker: Slow to respond, DuoNeb 4 times a day. Nebulized Pulmicort -Diabetes mellitus type 2 chronically on insulin, uncontrolled with hyperglycemia and hypoglycemia. Decrease Levemir 46 units subcu daily at bedtime. Diabetic diet. Accu-Cheks and sliding scale -Hyperlipidemia Lipitor 40 mg daily at bedtime -Essential hypertension Toprol-XL 50 mg a day -Obstructive sleep apnea sometimes uses CPAP machine -Diabetic peripheral neuropathy Cymbalta -Anxiety Celexa, Cymbalta -DJD Tylenol when necessary -Chronic nicotine dependence patient cigarette smoker Nicotine patch 7 -AICD -Acute on Chronic left plantar diabetic foot wound : Slow to respond. IV Zosyn. Status post debridement by Dr. Trent on August 25. -Peripheral arterial disease Patient already on aspirin, Lipitor. Add xarelto Lasix IV 80 mg twice a day. Add xarelto for PAD. Continue IV Zosyn. Discussed with Dr. Hand. We'll arrange for angiogram. Follow labs
[2021-08-29 19:53] LABS: Glucose,Whole Blood 188 mg/dL (75-99)
[2021-08-29] MEDS: CITALOPRAM HYDROBROMIDE 20 MG TAB PO SCH (20:36)
[2021-08-29] MEDS: ATORVASTATIN 40 MG TAB PO SCH (20:36)
--- NOTE | 2021-08-29 21:59 | P.PN ---
Subjective Progress Note Date: 08/29/21 Principal diagnosis: Left foot osteo-myelitis Patient is a 51-year-old male with a past medical history significant for diabetes mellitus presented to hospital with a nonhealing wound to the left fifth toe with abnormal x-ray and this patient was status post I&D by vascular surgery completed on 08/25/2021. On today's evaluation that is 08/29/2021 the patient remains to be febrile, the patient is breathing comfortably, the patient denies chest pain shortness of breath or cough , the patient denies nausea vomiting abdominal pain and pain to the left foot plantar wound area is currently controlled Objective - Vital Signs Vital signs: Vital Signs Temp 98.1 F 08/29/21 19:40 Pulse 80 08/29/21 20:11 Resp 18 08/29/21 19:40 BP 105/70 08/29/21 19:40 Pulse Ox 97 08/29/21 19:40 Intake & Output 08/29/21 08/29/21 08/30/21 06:59 18:59 06:59 Output Total 1550 800 Balance -1550 -800 Weight 114.9 kg 114.9 kg Output: Urine 1550 800 Other: Voiding Method Urinal Urinal - Exam GENERAL DESCRIPTION: Middle-age male up in the chair, in no distress RESPIRATORY SYSTEM: Unlabored breathing , decreased breath sounds at bases HEART: S1 S2 regular rate and rhythm , ABDOMEN: Soft , no tenderness EXTREMITIES: Patient with left foot plantar wound at the base of fifth metatarsal base with some slough tissue deep culture were obtained - Labs CBC & Chem 7: 08/29/21 07:14 08/29/21 07:14 Labs: Abnormal Lab Results - Last 24 Hours (Table) 08/29/21 08/29/21 08/29/21 Range/Units 07:06 07:14 07:14 MCHC 29.9 L (31.0-37.0) g/dL BUN 32 H (9-20) mg/dL Glucose 49 L* (74-99) mg/dL POC Glucose (mg/dL) 67 L (75-99) mg/dL 08/29/21 08/29/21 08/29/21 Range/Units 07:32 07:49 11:34 MCHC (31.0-37.0) g/dL BUN (9-20) mg/dL Glucose (74-99) mg/dL POC Glucose (mg/dL) 69 L 66 L 122 H (75-99) mg/dL 08/29/21 08/29/21 Range/Units 16:49 19:51 MCHC (31.0-37.0) g/dL BUN (9-20) mg/dL Glucose (74-99) mg/dL POC Glucose (mg/dL) 187 H 188 H (75-99) mg/dL Microbiology - Last 24 Hours (Table) 08/29/21 11:59 Wound Culture - Preliminary Foot - Left Assessment and Plan (1) Foot osteomyelitis, left Current Visit: Yes Status: Acute Code(s): M86.9 - OSTEOMYELITIS, UNSPECIFIED SNOMED Code(s): 8729396721819294 Plan: 1-patient with left diabetic foot infection involving his fourth and fifth toe in this patient who is status post debridement with concern for underlying acute osteomyelitis, unfortunately no cultures have been done so we do not have any microbiological data , patient is refusing amputation, deep culture has been obtained. Followed to determine his discharge antibiotics will likely need a PICC line and outpatient IV antibiotics Time with Patient: Less than 30
[2021-08-30] MEDS: ACETAMINOPHEN TAB 325 MG TAB PO PRN (00:03)
[2021-08-30] MEDS: ONDANSETRON 4 MG/2 ML VIAL IVP PRN ×2 (02:46→09:57)
[2021-08-30] MEDS: PIPERACILLIN-TAZOBACTAM 3.375 GM in SODIUM CHLORIDE 0.9% 100 ML IVPB SCH ×3 (02:46→17:05)
[2021-08-30 06:20] LABS: Glucose,Whole Blood 216 mg/dL (75-99)
[2021-08-30] MEDS: INSULIN ASPART (NovoLOG) 100 UNIT/ML VIAL SQ SCH ×4 (06:34→21:19)
[2021-08-30] MEDS: BUDESONIDE 1 MG/2 ML NEBU INHALATION SCH ×2 (08:06→19:32)
[2021-08-30] MEDS: IPRATROPIUM-ALBUTEROL 3 ML NEB INHALATION SCH ×4 (08:06→19:32)
[2021-08-30] MEDS: fentaNYL (PF) 50 MCG/ML 2 ML AMP IV ONE ×2 (08:10→08:20)
[2021-08-30] MEDS ORDERED: fentaNYL (PF) 50 MCG/ML 2 ML AMP ONE (08:10)
[2021-08-30] MEDS ORDERED: MIDAZOLAM 2 MG/2 ML VIAL IV ONE (08:10)
[2021-08-30] MEDS ORDERED: LIDOCAINE 1% INJ 10MG/ML (20 ML MDV) SQ ONE (08:13)
[2021-08-30] MEDS ORDERED: IV FLUID CONTINUATION 500 ML IV ONE (08:20)
[2021-08-30 08:41] LABS: Calcium 8.5 mg/dL (8.4-10.2); Potassium 4.4 mmol/L (3.5-5.1)
[2021-08-30] MEDS ORDERED: IOPAMIDOL-250 100ML BTL INTRAARTER ONE ×2 (08:45)
--- NOTE | 2021-08-30 09:07 | P.OP ---
Date of Procedure: 08/30/21 Description of Procedure: Preoperative diagnosis: Nonhealing left lower extremity wound, diabetes, medial calcific arterial disease Postoperative diagnosis: Same Procedure: [Guided Right Common Femoral Artery Access Aortogram with Runoffs Selective Left Lower Extremity Angiogram to the External Iliac, Second Order Moderate conscious sedation 36 minutes] Surgeon: Lacie Munoz D.O. EBL: [Less than 5 mL] IV fluids: [See records] Urine output: [Not measured] Drains: [None] Complications: None immediately apparent[] Condition: [Stable to the recovery] Operative indication and findings: [Patient is a 51-year-old male with tobacco history of diabetes and a nonhealing left lower extremity wound. He had previous imaging showing severe tibial artery disease. Waveforms appeared multiphasic. Given his nonhealing wound it was decided he may benefit from an angiogram. Risks and benefits were discussed. He seemingly understood and was willing to proceed as such] Procedure in detail: [Patient was taken to the special suite and placed in supine position. Bilateral groins are prepped and draped in usual sterile fashion. A preprocedure timeout was performed and all parties in agreement. Using ultrasound THE RIGHT COMMON FEMORAL ARTERY WAS IDENTIFIED. THE SKIN OVERLYING WAS ANESTHETIZED 1% LIDOCAINE PLAIN. USING SELDINGER TECHNIQUE A MICRO-ACCESS NEEDLE WAS USED AND A 5-KYRGYZ SHEATH WAS THEN PLACED. CATHETERS AND WIRES WERE PLACED IN THE AORTA. AN ANGIOGRAM WAS PERFORMED WITH LOWER EX TREMITY RUNOFFS. THE catheter was then brought down to the level of the bifurcation and lower extremity runoffs were performed. Given the need to look of left lower extremity, wires and catheters were used to select the external iliac artery and a angiogram this position was obtained. Catheters and wires removed. The sheath was removed and manual pressure was held until hemostasis was adequate. A pressure dressing was placed. Angiographic findings: Aortogram is normal in course and caliber. Visualized portions of the celiac, superior mesenteric and bilateral renal arteries appear patent without significant disease. The infrarenal aorta is patent without significant disease. On the right the common, internal and external iliac arteries appear patent without disease On the left the common, internal and external iliac arteries appear patent without significant disease.. On the right, the common, superficial and deep femoral arteries are patent without evidence of disease. The popliteal artery is patent without disease. 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 Then courses across. The TP trunk, posterior tibial peroneal arteries appear patent without significant disease and the anterior and posterior tibial are patent at the ankle. On the left, the common, superficial and deep femoral arteries appear patent without significant disease. The popliteal artery is patent without significant disease. There is a high takeoff of the anterior tibial artery. The TP trunk, posterior tibial and peroneal arteries appear patent without significant disease. The posterior tibial is widely patent at the level of the ankle. The anterior tibial is sluggish but does make it down to the level of the ankle and the posterior tibial artery fills the majority of the plantar arch. There is a short segment of discontinuation in the plantar arch and approximately 1 cm however there is good filling to the peripheral vessels other than this point.]
[2021-08-30] MEDS: MORPHINE SULFATE IR 15 MG TABLET PO PRN (09:56)
[2021-08-30] MEDS: ALPRAZolam 0.25 MG TAB PO PRN (09:56)
[2021-08-30] MEDS: METOPROLOL SUCCINATE (ER) 50 MG TAB.ER.24H PO SCH (09:56)
[2021-08-30] MEDS: ASPIRIN 81 MG PO SCH (09:57)
[2021-08-30] MEDS: FUROSEMIDE 10 MG/ML 10 ML VIAL IV SCH (09:57)
[2021-08-30] MEDS: lisinopriL 5 MG TAB PO SCH (09:57)
[2021-08-30] MEDS: DULoxetine HCL 60 MG CAPSULE.DR PO SCH ×2 (09:57→21:40)
[2021-08-30] MEDS: SPIRONOLACTONE 25 MG TAB PO SCH (09:57)
--- NOTE | 2021-08-30 10:17 | P.ARTDOP ---
Arterial Doppler LOWER EXTREMITY ARTERIAL DOPPLER: DATE OF SERVICE: 08/24/2021 Reason for study: Bilateral leg edema. Doppler waveforms: Multiphasic bilaterally throughout. Pulse volume recording: []. Pressure gradients: None. Ankle-brachial indices: Greater than 1 bilaterally. Toe brachial indices: [] on the right, [] on the left Impression: Normal study.
[2021-08-30] MEDS ORDERED: methocarbamoL 500 MG TAB PO PRN (10:33)
[2021-08-30 11:26] LABS: Glucose,Whole Blood 73 mg/dL (75-99)
--- NOTE | 2021-08-30 11:48 | IR ---
Fluoroscopy HISTORY: Pain 7 minutes fluoroscopy time supplied to the referring clinician. 267 intraoperative C-arm images docu ment the procedure. See dictated report from vascular surgery.
--- NOTE | 2021-08-30 12:18 | P.PN ---
Subjective Progress Note Date: 08/30/21 HISTORY OF PRESENT ILLNESS: This is a pleasant 51-year-old male past medical history significant for mild nonobstructive coronary artery disease, dilated cardiomyopathy, chronic systolic heart failure, status post AICD in 2014, type 2 diabetes, hypertension, dyslipidemia, chronic nicotine dependence, COPD, diabetic foot wounds. He follows in the office with Dr. Abbasi. We have been asked to see in consultation for congestive heart failure. Patient presents emergency department with worsening bilateral lower extremity edema and shortness of breath. He states that for about 2 weeks he has been having symptoms of extremity edema he states that he increased his lasix himself and has some improvement, however, his symptoms worsened again and he decided to come to the emergency department for further evaluation. He has not followed up with Dr. Abbasi since 07/2020. He is having symptoms of orthopnea. He denies chest pain, lightheadedness dizziness, syncope or near syncope. He also endorses a left foot wound that has not healed. DIAGNOSTICS Most recent Echo 01/2020 in the office revealed an EF of 23%, dilated cardiomyopathy, mild mitral regurgitation, mild tricuspid regurgitation EKG reveals sinus tachycardia, heart rate 117, LVH, poor R wave progression, no significant ST ST-T wave abnormalities. Telemetry tracings indicate sinus mechanism HR 110-120 Chest xray vascular congestion Current home medications include atorvastatin 40 mg nightly, Lasix 80 mg twice a day, Toprol succinate 50 mg daily, aspirin 81 mg daily Lasix, WBC 15.7, hemoglobin 14.3, platelets 235, sodium 136, potassium 3.9, BUN 17, serum creatinine 0.7, magnesium 2.0, proBNP 6230, COVID-19 negative Most recent cardiac catheterization 11/2017 revealed minimal coronary artery disease with mild irregularities in the RCA and mid LAD 08/24/2021 Patient examined this morning at the bedside. Patient denies chest pain or pressure. He currently denies shortness of breath. He continues to have lower extremity edema. He is maintained on a Lasix drip at 10 mg an hour. Patient has mildly tachycardic this morning. Blood pressure 116/73. Kidney function stable with a creatinine of 0.82. Echocardiogram completed revealing ejection fraction less than 20%, mild mitral regurgitation, mild tricuspid regurgitation, and severe pulmonary hypertension. 08/25/2021 Patient examined this morning at the bedside. Patient denies chest pain or pressure. Currently denying tenderness of breath. He continues to report lower extremity edema which he does not feel as improved since yesterday. He is maintained on a Lasix drip at 10 mg an hour. Kidney function remains stable with a creatinine of 1.19. Fluid balance over the last 24 hours is -1158 mL. Vital signs are stable. 08/28/2021 Patient examined this morning at the bedside. Patient denies chest pain or pressure. Reports mild SOB. He remains on a IV lasix infusion at 10mg/hr. Fluid balance over the last 24 hours is -981cc. Vital signs are stable. 08/29/2021 Patient examined this morning at the bedside. Patient denies chest pain or pressure. Patient currently denies shortness of breath. He remains on IV Lasix 80 mg every 12 hours. Creatinine remains stable today at 1.08. Fluid balance over the last 24 hours is -1435 mL. Patient's lower extremity edema this appears to be slowly improving. 08/30/2021 Patient examined this morning at the bedside. Patient underwent lower extremity angiogram today with vascular surgery. Patient is complaining of back pain this morning secondary to laying flat in bed. He reports mild shortness of breath secondary to his pain and states he is unable to take a deep breath. He denies chest pain or pressure. Patient remains on IV Lasix. Patient's creatinine incr eased today to 1.31. Fluid balance over the last 24 hours is -1300 mL. PHYSICAL EXAM: VITAL SIGNS: Reviewed. GENERAL: Well-developed in no acute distress. NECK: Supple. No JVD or thyromegaly LUNGS: Respirations even and unlabored. Lungs diminished bilaterally. HEART: Regular rate and rhythm. S1 and S2 heard. Systolic murmur noted. EXTREMITIES: Normal range of motion. No clubbing or cyanosis. Peripheral pulses intact. 2+ bilateral lower extremity edema ASSESSMENT: Acute on chronic Heart failure with reduced ejection fraction, systolic Dilated, nonischemic cardiomyopathy status post AICD implantation in 2014 Type 2 diabetes Hypertension Dyslipidemia Chronic nicotine dependence COPD Left nonhealing foot wound Leukocytosis Acute kidney injury PLAN: Continue current cardiac medications Discontinue IV Lasix. Begin oral Lasix 80 mg twice a day. Continue to monitor kidney function. Accurate I&O Daily weights Further recommendations pending patient course Nurse practitioner note has been reviewed by physician. Signing provider agrees with the documented findings, assessment, and plan of care. Objective - Vital Signs Vital signs: Vital Signs Temp 98.1 F 08/29/21 19:40 Pulse 72 08/30/21 12:08 Resp 19 08/30/21 02:55 BP 100/58 08/30/21 02:55 Pulse Ox 96 08/30/21 02:55 Intake & Output 08/29/21 08/30/21 08/30/21 18:59 06:59 18:59 Intake Total 100 Output Total 800 500 400 Balance -800 -500 -300 Weight 114.9 kg Intake: IV 100 Output: Urine 800 500 400 Other: Voiding Method Urinal Urinal Urinal - Labs CBC & Chem 7: 08/29/21 07:14 08/30/21 07:05 Labs: Abnormal Lab Results - Last 24 Hours (Table) 08/29/21 08/29/21 08/30/21 Range/Units 16:49 19:51 06:19 Sodium (137-145) mmol/L BUN (9-20) mg/dL Creatinine (0.66-1.25) mg/dL Glucose (74-99) mg/dL POC Glucose (mg/dL) 187 H 188 H 216 H (75-99) mg/dL 08/30/21 08/30/21 Range/Units 07:05 11:24 Sodium 134 L (137-145) mmol/L BUN 39 H (9-20) mg/dL Creatinine 1.31 H (0.66-1.25) mg/dL Glucose 170 H (74-99) mg/dL POC Glucose (mg/dL) 73 L (75-99) mg/dL Microbiology - Last 24 Hours (Table) 08/29/21 11:59 Gram Stain - Preliminary Foot - Left Wound Culture - Preliminary
[2021-08-30] MEDS: NICOTINE 7MG/24HR PATCH TRANSDERM SCH (13:10)
[2021-08-30] MEDS: ENOXAPARIN 40 MG/0.4 ML SYRINGE SQ SCH (13:10)
[2021-08-30 16:29] LABS: Glucose,Whole Blood 74 mg/dL (75-99)
[2021-08-30] MEDS: GABAPENTIN 100 MG CAP PO SCH ×2 (17:05→21:40)
[2021-08-30] MEDS: FUROSEMIDE 80 MG TAB PO SCH (17:05)
[2021-08-30 20:27] LABS: Glucose,Whole Blood 145 mg/dL (75-99)
--- NOTE | 2021-08-30 20:50 | P.PN ---
Progress Note - Text Progress Note Date: 08/30/21 Chief Complaint: Abdominal pain History of presenting complaint: This is a pleasant 51-year-old patient of Dr. Hany Rodríguez. Chronic stable medical conditions include nonischemic CHF EF less than 20%, COPD, diabetes, GERD, hypertension, hyperlipidemia, obstructive sleep apnea with CPAP, AICD and a pacemaker. Patient lives with his 20-year-old son. Normally uses a cane to get about. did drink heavily in the past and quit 20 years ago. Still an active smoker. Patient now presents for noticing increasing swelling in the lower extremity. At least for 2 weeks. Normally uses 2 pillows. Some persistent supple disease. More orthopnea. Has a cough. No sputum. No fever no chills. Decreased appetite. More short of breath. Some wheezing. Patient also has a wound on the left foot for which she followed at the wound care center. Denies any drainage. But wants it to be looked at. Patient has continued to smoke. Admitted with acute CHF exacerbation EF less than 20%-put on Lasix drip, acute COPD exacerbation-put on DuoNeb and nebulized steroids, diabetic foot wound for which vascular and wound care consulted. IV Zosyn. Fredy wrap lower extremity. August 17: Excisional debridement of nonviable tissue nonhealing wound left foot plantar surface carried out by Dr. Trent. Arterial Doppler ultrasound demonstrated severe tibial artery occlusive disease. August 28: Patient is a Lasix drip is being changed over to IV Lasix bolus. Patient's been over 4 L in negative fluid balance. Breathing slightly better. Lower extremity edema present. Dressing of left foot. Eating all his meals. August 29: Breathing a bit better. On IV Lasix 80 mg every 12. Good urine output. Edema present. Foot wound discussed with Dr. Hand. No deep cultures were sent and it was debrided. Discussed results of arterial Doppler ultrasound. Patient will benefit from an angiogram to better in terms of outcome and further intervention. Hypoglycemic this morning. Morning dose of Levemir held. Will change Levemir to 46 units daily at bedtime. About 6 L in negative fluid balance August 30: Breathing better. Lasix changed to by mouth. Underwent angiogram today. Results reviewed. Decent circulation. No PAD. Patient complaining of neuropathic pain in his lower extremity. Neurontin added.. Review of systems: Was done for constitutional, cardiovascular, GI, pulmonary. relevant finding as above Active Medications Acetaminophen (Acetaminophen Tab 325 Mg Tab) 650 mg PO Q6HR PRN PRN Reason: Mild Pain or Fever > 100.5 Last Admin: 08/30/21 00:03 Dose: 650 mg Documented by: Albuterol/Ipratropium (Ipratropium-Albuterol 3 Ml Neb) 3 ml INHALATION RT-QID [facility] Last Admin: 08/30/21 19:32 Dose: 3 ml Documented by: Alprazolam (Alprazolam 0.25 Mg Tab) 0.25 mg PO Q6HR PRN PRN Reason: Anxiety Last Admin: 08/30/21 09:56 Dose: 0.25 mg Documented by: Aspirin (Aspirin 81 Mg) 81 mg PO DAILY [facility] Last Admin: 08/30/21 09:57 Dose: 81 mg Documented by: Atorvastatin Calcium (Atorvastatin 40 Mg Tab) 40 mg PO [facility] Last Admin: 08/29/21 20:36 Dose: 40 mg Documented by: Budesonide (Budesonide 1 Mg/2 Ml Nebu) 1 mg INHALATION RT-BID [facility] Last Admin: 08/30/21 19:32 Dose: 1 mg Documented by: Calcium Carbonate/Glycine (Calcium Carbonate 500 Mg Chewable) 1,000 mg PO Q4HR PRN PRN Reason: Dyspepsia Last Admin: 08/27/21 16:12 Dose: 1,000 mg Documented by: Citalopram Hydrobromide (Citalopram Hydrobromide 20 Mg Tab) 40 mg PO [facility] Last Admin: 08/29/21 20:36 Dose: 40 mg Documented by: Duloxetine HCl (Duloxetine Hcl 60 Mg Capsule.Dr) 60 mg PO BID [facility] Last Admin: 08/30/21 09:57 Dose: 60 mg Documented by: Enoxaparin Sodium (Enoxaparin 40 Mg/0.4 Ml Syringe) 40 mg SQ DAILY [facility] Last Admin: 08/30/21 13:10 Dose: 40 mg Documented by: Furosemide (Furosemide 80 Mg Tab) 80 mg PO BID@0900,1600 [facility] Last Admin: 08/30/21 17:05 Dose: 80 mg Documented by: Gabapentin (Gabapentin 100 Mg Cap) 100 mg PO BID [facility] Last Admin: 08/30/21 17:05 Dose: 100 mg Documented by: Piperacillin Sod/Tazobactam (Sod 3.375 gm/ Sodium Chloride) 100 mls @ 25 mls/hr IVPB Q8H [facility] Last Admin: 08/30/21 17:05 Dose: 25 mls/hr Documented by: Insulin Aspart (Insulin Aspart (Novolog) 100 Unit/Ml Vial) 0 unit SQ ACHS [facility]; Protocol Last Admin: 08/30/21 17:01 Dose: Not Given Documented by: Insulin Detemir (Insulin Detemir (Levemir) 100 Unit/Ml Syr) 46 unit SQ HS [facility] Last Admin: 08/29/21 20:36 Dose: 46 unit Documented by: Lactulose (Lactulose 20 Gm/30 Ml Cup) 20 gm PO DAILY PRN PRN Reason: Constipation Last Admin: 08/28/21 23:23 Dose: 20 gm Documented by: Lisinopril (Lisinopril 5 Mg Tab) 5 mg PO DAILY [facility] Last Admin: 08/30/21 09:57 Dose: 5 mg Documented by: Melatonin (Melatonin 3 Mg Tablet) 3 mg PO HS PRN PRN Reason: Insomnia Last Admin: 08/28/21 23:24 Dose: 3 mg Documented by: Methocarbamol (Methocarbamol 500 Mg Tab) 500 mg PO QID PRN PRN Reason: Muscle Spasm Metoprolol Succinate (Metoprolol Succinate (Er) 50 Mg Tab.Er.24h) 100 mg PO DAILY [facility] Last Admin: 08/30/21 09:56 Dose: 100 mg Documented by: Morphine Sulfate (Morphine Sulfate Ir 15 Mg Tablet) 30 mg PO QID PRN PRN Reason: Pain Last Admin: 08/30/21 09:56 Dose: 30 mg Documented by: Naloxone HCl (Naloxone 0.4 Mg/Ml 1 Ml Vial) 0.2 mg IV Q2M PRN PRN Reason: Opioid Reversal Nicotine (Nicotine 7mg/24hr Patch) 1 patch TRANSDERM DAILY [facility] Last Admin: 08/30/21 13:10 Dose: 1 patch Documented by: Ondansetron HCl (Ondansetron 4 Mg/2 Ml Vial) 4 mg IVP Q8HR PRN PRN Reason: Nausea And Vomiting Last Admin: 08/30/21 09:57 Dose: 4 mg Documented by: Spironolactone (Spironolactone 25 Mg Tab) 25 mg PO DAILY [facility] Last Admin: 08/30/21 09:57 Dose: 25 mg Documented by: Past medical history to include: COPD, CHF-EF 20%, diabetes, GERD, hyperlipidemia, hypertension,(s) sleep apnea uses CPAP sometimes, ischemic cardiomyopathy, chronic cervical back pain and DJD, diabetic foot wounds Social history: Lives with his 20 -year-old son. Does use a cane. Disabled. 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 Been smoking 2 packs a day for most of his life now down to quarter pack a day. Heavy drinking in the past quit 20 years ago. 4 hits of marijuana nightly. Family history: Reviewed, noncontributory to presentation Physical examination: VITAL SIGNS: Afebrile, 76, 16, 93/59, GENERAL: , Laying in bed breathing better EYES: Pupils equal. Conjunctiva normall. HEENT: External appearance of nose and ears normal, oral cavity grossly normal. NECK: JVD unable to assess; masses not palpable. HEART: First and second heart sounds are normal; significant edema present. LUNGS: Respiratory rate increased; diminished breath sounds ABDOMEN: Soft, mild distention nontender, liver spleen not palpable, no masses palpable. PSYCH: Alert and oriented x3; mood and affect anxious. MUSCULOSKELETAL:No Clubbing/cyanosis;muscles-grossly intact DERMATOLOGICAL: Wound on the plantar surface/lateral of left foot. Ichthyosis especially lower extremity bilateral NEUROLOGICAL: Cranial nerves grossly intact; no facial asymmetry, decreased sensation distally INVESTIGATIONS, reviewed in the clinical context: August 30: Sodium 134 BUN 39 creatinine 1.31. Accu-Cheks 73, 74 Selective left lower extremity angiogram: Good to fair circulation. August 28: Sodium 137 potassium 4.5 creatinine 1.18 August 24: Sodium 134 potassium 3.6 creatinine 0.82 Left foot x-ray: Dorsal dislocation at the fifth digit at the MTP joint. Questionable osteomyelitis/fracture fragment White count 15.7 hemoglobin 14.3 platelets 235 sodium 136 potassium 3.9 BUN 17 creatinine 0.74. Blood glucose 69 Total bilirubin 1.6 AST 126 ALT 162 ProBNP 6330 Coronavirus PCF: Not detected 2-D echocardiogram: Moderate concentric LVH. EF less than 20% right ventricle [id number] enlargement. Severe pulmonary hypertension EKG tracing personally reviewed by me-sinus tachycardia. Rate 117. Some ST segment changes Chest x-ray film personally reviewed by tn-cardia megaly. Venous prominence. AICD Assessment and plan: -Acute on chronic congestive heart failure exacerbation from nonischemic cardiomyopathy systolic dysfunction EF less than 20%: Slow to respond Lasix drip discontinued. IV Lasix changed to by mouth 80 mg twice a day.. Fluid restriction 1500 mL Strict I's and O's. Toprol. Aldactone AICD -Acute COPD exacerbation in a current smoker: Better DuoNeb 4 times a day. Nebulized Pulmicort -Diabetes mellitus type 2 chronically on insulin, uncontrolled with hyperglycemia and hypoglycemia. Levemir 46 units subcu daily at bedtime. Diabetic diet. Accu-Cheks and sliding scale -Hyperlipidemia Lipitor 40 mg daily at bedtime -Essential hypertension Toprol-XL 50 mg a day -Obstructive sleep apnea sometimes uses CPAP machine -Diabetic peripheral neuropathy Add Neurontin 100 mg twice a day -Anxiety Celexa, Cymbalta -DJD Tylenol when necessary -Chronic nicotine dependence patient cigarette smoker Nicotine patch 7 -AICD -Acute on Chronic left plantar diabetic foot wound : Slow to respond. IV Zosyn. Status post debridement by Dr. Trent on August 25. -Lower extremity significant venous insufficiency Fredy wrap's Lasix changed to by mouth. Fredy wrap. Add Neurontin 100 mg twice a day for peripheral neuropathy. Repeat labs in the morning.
--- NOTE | 2021-08-30 21:35 | P.PN ---
Subjective Progress Note Date: 08/30/21 Principal diagnosis: Left foot osteo-myelitis Patient is a 51-year-old male with a past medical history significant for diabetes mellitus presented to hospital with a nonhealing wound to the left fifth toe with abnormal x-ray and this patient was status post I&D by vascular surgery completed on 08/25/2021. Patient is status post arterial studies of the right leg this morning On today's evaluation that is 08/30/2021 the patient denies fever or chills, the patient is breathing comfortably, the patient denies chest pain shortness of breath or cough , the patient denies nausea vomiting abdominal pain and no diarrhea, the patient pain to the left foot plantar wound area is currently controlled Objective - Vital Signs Vital signs: Vital Signs Temp 98.1 F 08/29/21 19:40 Pulse 72 08/30/21 19:51 Resp 16 08/30/21 15:27 BP 93/59 08/30/21 15:27 Pulse Ox 96 08/30/21 02:55 Intake & Output 08/30/21 08/30/21 08/31/21 06:59 18:59 06:59 Intake Total 1340 Output Total 500 1200 Balance -500 140 Intake: IV 100 Oral 1240 Output: Urine 500 1200 Other: Voiding Method Urinal Urinal - Exam GENERAL DESCRIPTION: Middle-age male up in the chair, in no distress RESPIRATORY SYSTEM: Unlabored breathing , decreased breath sounds at bases HEART: S1 S2 regular rate and rhythm , ABDOMEN: Soft , no tenderness EXTREMITIES: Patient with left foot plantar wound at the base of fifth metatarsal base is currently dressed no drainage on dressing - Labs CBC & Chem 7: 08/29/21 07:14 08/30/21 07:05 Labs: Abnormal Lab Results - Last 24 Hours (Table) 08/30/21 08/30/21 08/30/21 Range/Units 06:19 07:05 11:24 Sodium 134 L (137-145) mmol/L BUN 39 H (9-20) mg/dL Creatinine 1.31 H (0.66-1.25) mg/dL Glucose 170 H (74-99) mg/dL POC Glucose (mg/dL) 216 H 73 L (75-99) mg/dL 08/30/21 08/30/21 Range/Units 16:28 20:23 Sodium (137-145) mmol/L BUN (9-20) mg/dL Creatinine (0.66-1.25) mg/dL Glucose (74-99) mg/dL POC Glucose (mg/dL) 74 L 145 H (75-99) mg/dL Microbiology - Last 24 Hours (Table) 08/29/21 11:59 Gram Stain - Preliminary Foot - Left Wound Culture - Preliminary Assessment and Plan (1) Foot osteomyelitis, left Current Visit: Yes Status: Acute Code(s): M86.9 - OSTEOMYELITIS, UNSPECIFIED SNOMED Code(s): 4494556831812200 Plan: 1-patient with left diabetic foot infection involving his fourth and fifth toe in this patient who is status post debridement with concern for underlying acute osteomyelitis, unfortunately no cultures have been done so we do not have any microbiological data , patient is status post right lower extremity arterial studies, deep culture are currently pending which will be followed to determine his discharge antibiotics will likely need a PICC line and outpatient IV antibiotics, continue Zosyn at this point
[2021-08-30] MEDS: INSULIN DETEMIR (LEVEMIR) 100 UNIT/ML SYR SQ SCH (21:40)
[2021-08-30] MEDS: CITALOPRAM HYDROBROMIDE 20 MG TAB PO SCH (21:40)
[2021-08-30] MEDS: ATORVASTATIN 40 MG TAB PO SCH (21:40)
[2021-08-31 01:52] LABS: Glucose,Whole Blood 158 mg/dL (75-99)
[2021-08-31 02:23] LABS: Magnesium 2.3 mg/dL (1.6-2.3); Potassium 4.2 mmol/L (3.5-5.1)
[2021-08-31] MEDS: PIPERACILLIN-TAZOBACTAM 3.375 GM in SODIUM CHLORIDE 0.9% 100 ML IVPB SCH ×2 (04:01→14:45)
[2021-08-31 06:16] LABS: Glucose,Whole Blood 133 mg/dL (75-99)
[2021-08-31] MEDS: INSULIN ASPART (NovoLOG) 100 UNIT/ML VIAL SQ SCH ×4 (06:35→20:38)
[2021-08-31] MEDS: BUDESONIDE 1 MG/2 ML NEBU INHALATION SCH ×2 (08:13→20:23)
[2021-08-31] MEDS: IPRATROPIUM-ALBUTEROL 3 ML NEB INHALATION SCH ×4 (08:13→20:23)
[2021-08-31 08:44] LABS: Calcium 8.8 mg/dL (8.4-10.2); Potassium 4.4 mmol/L (3.5-5.1)
[2021-08-31] MEDS: DULoxetine HCL 60 MG CAPSULE.DR PO SCH ×2 (10:52→20:38)
[2021-08-31] MEDS: METOPROLOL SUCCINATE (ER) 50 MG TAB.ER.24H PO SCH (10:52)
[2021-08-31] MEDS: lisinopriL 5 MG TAB PO SCH (10:53)
[2021-08-31] MEDS: FUROSEMIDE 80 MG TAB PO SCH ×2 (10:53→17:57)
[2021-08-31] MEDS: ASPIRIN 81 MG PO SCH (10:53)
[2021-08-31] MEDS: SPIRONOLACTONE 25 MG TAB PO SCH (10:53)
[2021-08-31] MEDS: ENOXAPARIN 40 MG/0.4 ML SYRINGE SQ SCH (10:53)
[2021-08-31] MEDS: GABAPENTIN 100 MG CAP PO SCH ×2 (10:53→20:38)
[2021-08-31] MEDS: MORPHINE SULFATE IR 15 MG TABLET PO PRN ×2 (10:56→17:56)
[2021-08-31] MEDS: ONDANSETRON 4 MG/2 ML VIAL IVP PRN (10:56)
[2021-08-31] MEDS: NICOTINE 7MG/24HR PATCH TRANSDERM SCH (11:04)
--- NOTE | 2021-08-31 11:30 | P.PN ---
Subjective Progress Note Date: 08/31/21 HISTORY OF PRESENT ILLNESS: This is a pleasant 51-year-old male past medical history significant for mild nonobstructive coronary artery disease, dilated cardiomyopathy, chronic systolic heart failure, status post AICD in 2014, type 2 diabetes, hypertension, dyslipidemia, chronic nicotine dependence, COPD, diabetic foot wounds. He follows in the office with Dr. Abbasi. We have been asked to see in consultation for congestive heart failure. Patient presents emergency department with worsening bilateral lower extremity edema and shortness of breath. He states that for about 2 weeks he has been having symptoms of extremity edema he states that he increased his lasix himself and has some improvement, however, his symptoms worsened again and he decided to come to the emergency department for further evaluation. He has not followed up with Dr. Abbasi since 07/2020. He is having symptoms of orthopnea. He denies chest pain, lightheadedness dizziness, syncope or near syncope. He also endorses a left foot wound that has not healed. DIAGNOSTICS Most recent Echo 01/2020 in the office revealed an EF of 23%, dilated cardiomyopathy, mild mitral regurgitation, mild tricuspid regurgitation EKG reveals sinus tachycardia, heart rate 117, LVH, poor R wave progression, no significant ST ST-T wave abnormalities. Telemetry tracings indicate sinus mechanism HR 110-120 Chest xray vascular congestion Current home medications include atorvastatin 40 mg nightly, Lasix 80 mg twice a day, Toprol succinate 50 mg daily, aspirin 81 mg daily Lasix, WBC 15.7, hemoglobin 14.3, platelets 235, sodium 136, potassium 3.9, BUN 17, serum creatinine 0.7, magnesium 2.0, proBNP 6230, COVID-19 negative Most recent cardiac catheterization 11/2017 revealed minimal coronary artery disease with mild irregularities in the RCA and mid LAD 08/24/2021 Patient examined this morning at the bedside. Patient denies chest pain or pressure. He currently denies shortness of breath. He continues to have lower extremity edema. He is maintained on a Lasix drip at 10 mg an hour. Patient has mildly tachycardic this morning. Blood pressure 116/73. Kidney function stable with a creatinine of 0.82. Echocardiogram completed revealing ejection fraction less than 20%, mild mitral regurgitation, mild tricuspid regurgitation, and severe pulmonary hypertension. 08/25/2021 Patient examined this morning at the bedside. Patient denies chest pain or pressure. Currently denying tenderness of breath. He continues to report lower extremity edema which he does not feel as improved since yesterday. He is maintained on a Lasix drip at 10 mg an hour. Kidney function remains stable with a creatinine of 1.19. Fluid balance over the last 24 hours is -1158 mL. Vital signs are stable. 08/28/2021 Patient examined this morning at the bedside. Patient denies chest pain or pressure. Reports mild SOB. He remains on a IV lasix infusion at 10mg/hr. Fluid balance over the last 24 hours is -981cc. Vital signs are stable. 08/29/2021 Patient examined this morning at the bedside. Patient denies chest pain or pressure. Patient currently denies shortness of breath. He remains on IV Lasix 80 mg every 12 hours. Creatinine remains stable today at 1.08. Fluid balance over the last 24 hours is -1435 mL. Patient's lower extremity edema this appears to be slowly improving. 08/30/2021 Patient examined this morning at the bedside. Patient underwent lower extremity angiogram today with vascular surgery. Patient is complaining of back pain this morning secondary to laying flat in bed. He reports mild shortness of breath secondary to his pain and states he is unable to take a deep breath. He denies chest pain or pressure. Patient remains on IV Lasix. Patient's creatinine incr eased today to 1.31. Fluid balance over the last 24 hours is -1300 mL. 08/31/2021 Patient examined this point the bedside. Patient states his back pain has improved today. He denies chest pain or pressure. He reports mild shortness of breath and continued lower extremity edema. He remains on oral Lasix 80 mg twice a day. Patient's renal function today has improved with a creatinine of 1.16. Vital signs are stable. Blood pressure 138/76. Telemetry reveals sinus mechanism with heart rate in the 70s. PHYSICAL EXAM: VITAL SIGNS: Reviewed. GENERAL: Well-developed in no acute distress. NECK: Supple. No JVD or thyromegaly LUNGS: Respirations even and unlabored. Lungs diminished bilaterally. HEART: Regular rate and rhythm. S1 and S2 heard. Systolic murmur noted. EXTREMITIES: Normal range of motion. No clubbing or cyanosis. Peripheral pulses intact. 2+ bilateral lower extremity edema ASSESSMENT: Acute on chronic heart failure with reduced ejection fraction, systolic Dilated, nonischemic cardiomyopathy status post AICD implantation in 2014 Type 2 diabetes Hypertension Dyslipidemia Chronic nicotine dependence COPD Left nonhealing foot wound Leukocytosis Acute kidney injury PLAN: Continue current cardiac medications Continue oral Lasix. Monitor kidney function. Accurate I&O Daily weights Patient stable from a cardiac standpoint Further recommendations pending patient course Nurse practitioner note has been reviewed by physician. Signing provider agrees with the documented findings, assessment, and plan of care. Objective - Vital Signs Vital signs: Vital Signs Temp 98.4 F 08/31/21 09:55 Pulse 71 08/31/21 09:55 Resp 20 08/31/21 09:55 BP 138/76 08/31/21 09:55 Pulse Ox 94 L 08/31/21 09:55 Intake & Output 08/30/21 08/31/21 08/31/21 18:59 06:59 18:59 Intake Total 1340 237 120 Output Total 1200 1675 350 Balance 140 -1438 -230 Intake: IV 100 Oral 1240 237 120 Output: Urine 1200 1675 350 Other: Voiding Method Urinal Urinal Urinal - Labs CBC & Chem 7: 08/29/21 07:14 08/31/21 07:36 Labs: Abnormal Lab Results - Last 24 Hours (Table) 08/30/21 08/30/21 08/30/21 Range/Units 11:24 16:28 20:23 BUN (9-20) mg/dL POC Glucose (mg/dL) 73 L 74 L 145 H (75-99) mg/dL 08/31/21 08/31/21 08/31/21 Range/Units 01:51 06:13 07:36 BUN 39 H (9-20) mg/dL POC Glucose (mg/dL) 158 H 133 H (75-99) mg/dL Microbiology - Last 24 Hours (Table) 08/29/21 11:59 Gram Stain - Preliminary Foot - Left Wound Culture - Preliminary
[2021-08-31 11:43] LABS: Glucose,Whole Blood 112 mg/dL (75-99)
--- NOTE | 2021-08-31 15:07 | P.PN ---
Subjective Progress Note Date: 08/31/21 Patient is seen and examined his follow-up status post left foot wound debridement. Yesterday he underwent aortogram with runoffs with selective left lower extremity angiogram to the external iliac doubt any significant disease. Continue local wound care. Patient has been afebrile. Infectious diseases on consult, he remains on IV antibiotics. Cultures are pending. Patient was seen today and discussed that we recommend amputation of his fourth and fifth toes due to osteomyelitis. Patient is declining amputation at this time and states he would like to follow up outpatient. Patient's been afebrile. Objective - Vital Signs Vital signs: Vital Signs Temp 98.1 F 08/31/21 03:55 Pulse 70 08/31/21 08:13 Resp 19 08/31/21 03:55 BP 106/68 08/31/21 03:55 Pulse Ox 93 L 08/31/21 03:55 Intake & Output 08/30/21 08/31/21 08/31/21 18:59 06:59 18:59 Intake Total 1340 237 120 Output Total 1200 1675 350 Balance 140 -1438 -230 Intake: IV 100 Oral 1240 237 120 Output: Urine 1200 1675 350 Other: Voiding Method Urinal Urinal - Exam General appearance: The patient is alert, oriented, appears in no acute distress. HET: Head is normocephalic and atraumatic. Pupils are equal and reactive. Neck: Supple without lymphadenopathy. Trachea midline. No audible carotid bruit. Extremities: Extremities: Bilateral lower extremity edema. Bilateral feet with callusing and dry skin thick yellow toenails. Left foot dressing clean dry and intact. Neurological: No focal deficits. Strength and sensation are grossly intact. - Labs CBC & Chem 7: 08/29/21 07:14 08/31/21 07:36 Labs: Abnormal Lab Results - Last 24 Hours (Table) 08/30/21 08/30/21 08/30/21 Range/Units 11:24 16:28 20:23 BUN (9-20) mg/dL POC Glucose (mg/dL) 73 L 74 L 145 H (75-99) mg/dL 08/31/21 08/31/21 08/31/21 Range/Units 01:51 06:13 07:36 BUN 39 H (9-20) mg/dL POC Glucose (mg/dL) 158 H 133 H (75-99) mg/dL Microbiology - Last 24 Hours (Table) 08/29/21 11:59 Gram Stain - Preliminary Foot - Left Wound Culture - Preliminary Assessment and Plan Assessment: 1. Diabetic ulcer to the left foot status post surgical debridement 2. Possible osteomyelitis 3. Diabetes mellitus with neuropathy 4. History of coronary artery disease 5. History of congestive heart failure 6. Tobacco dependence to 2 packs per day Plan: 1. Continue antibiotics per recommendations from infectious disease 2. Patient is status post surgical debridement of the left foot wound 3. Continue local wound care per wound clinic 4. Patient is status post aortogram 5. Recommend 4th and 5th toe amputation, patient declining at this time. Recommend outpatient follow up with wound clinic. 6. [employer] Thank you for this consultation, we will sing off at this time. The impression and plan of care has been dictated as directed. Dr. Hand I performed a history and examination of this patient, discussed the same with the dictator. I agree with the dictator's note ,documented as a scribe. Any additional findings or plans will be noted.
--- NOTE | 2021-08-31 15:20 | P.PN ---
Progress Note - Text Progress Note Date: 08/31/21 Chief Complaint: Abdominal pain History of presenting complaint: This is a pleasant 51-year-old patient of Dr. Hany Rodríguez. Chronic stable medical conditions include nonischemic CHF EF less than 20%, COPD, diabetes, GERD, hypertension, hyperlipidemia, obstructive sleep apnea with CPAP, AICD and a pacemaker. Patient lives with his 20-year-old son. Normally uses a cane to get about. did drink heavily in the past and quit 20 years ago. Still an active smoker. Patient now presents for noticing increasing swelling in the lower extremity. At least for 2 weeks. Normally uses 2 pillows. Some persistent supple disease. More orthopnea. Has a cough. No sputum. No fever no chills. Decreased appetite. More short of breath. Some wheezing. Patient also has a wound on the left foot for which she followed at the wound care center. Denies any drainage. But wants it to be looked at. Patient has continued to smoke. Admitted with acute CHF exacerbation EF less than 20%-put on Lasix drip, acute COPD exacerbation-put on DuoNeb and nebulized steroids, diabetic foot wound for which vascular and wound care consulted. IV Zosyn. Fredy wrap lower extremity. August 17: Excisional debridement of nonviable tissue nonhealing wound left foot plantar surface carried out by Dr. Trent. Arterial Doppler ultrasound demonstrated severe tibial artery occlusive disease. August 28: Patient is a Lasix drip is being changed over to IV Lasix bolus. Patient's been over 4 L in negative fluid balance. Breathing slightly better. Lower extremity edema present. Dressing of left foot. Eating all his meals. August 29: Breathing a bit better. On IV Lasix 80 mg every 12. Good urine output. Edema present. Foot wound discussed with Dr. Hand. No deep cultures were sent and it was debrided. Discussed results of arterial Doppler ultrasound. Patient will benefit from an angiogram to better in terms of outcome and further intervention. Hypoglycemic this morning. Morning dose of Levemir held. Will change Levemir to 46 units daily at bedtime. About 6 L in negative fluid balance August 30: Breathing better. Lasix changed to by mouth. Underwent angiogram today. Results reviewed. Decent circulation. No PAD. Patient complaining of neuropathic pain in his lower extremity. Neurontin added.. August 31: Vascular surgery offered amputation on the fourth and fifth toe due to osteomyelitis. Patient declined the same. Wound cultures are pending. Patient started on Neurontin yesterday. Care was discussed. Review of systems: Was done for constitutional, cardiovascular, GI, pulmonary. relevant finding as above Active Medications Acetaminophen (Acetaminophen Tab 325 Mg Tab) 650 mg PO Q6HR PRN PRN Reason: Mild Pain or Fever > 100.5 Last Admin: 08/30/21 00:03 Dose: 650 mg Documented by: Albuterol/Ipratropium (Ipratropium-Albuterol 3 Ml Neb) 3 ml INHALATION RT-QID [facility] Last Admin: 08/31/21 15:04 Dose: 3 ml Documented by: Alprazolam (Alprazolam 0.25 Mg Tab) 0.25 mg PO Q6HR PRN PRN Reason: Anxiety Last Admin: 08/30/21 09:56 Dose: 0.25 mg Documented by: Aspirin (Aspirin 81 Mg) 81 mg PO DAILY [facility] Last Admin: 08/31/21 10:53 Dose: 81 mg Documented by: Atorvastatin Calcium (Atorvastatin 40 Mg Tab) 40 mg PO [facility] Last Admin: 08/30/21 21:40 Dose: 40 mg Documented by: Budesonide (Budesonide 1 Mg/2 Ml Nebu) 1 mg INHALATION RT-BID [facility] Last Admin: 08/31/21 08:13 Dose: 1 mg Documented by: Calcium Carbonate/Glycine (Calcium Carbonate 500 Mg Chewable) 1,000 mg PO Q4HR PRN PRN Reason: Dyspepsia Last Admin: 08/27/21 16:12 Dose: 1,000 mg Documented by: Citalopram Hydrobromide (Citalopram Hydrobromide 20 Mg Tab) 40 mg PO [facility] Last Admin: 08/30/21 21:40 Dose: 40 mg Documented by: Duloxetine HCl (Duloxetine Hcl 60 Mg Capsule.Dr) 60 mg PO BID [facility] Last Admin: 08/31/21 10:52 Dose: 60 mg Documented by: Enoxaparin Sodium (Enoxaparin 40 Mg/0.4 Ml Syringe) 40 mg SQ DAILY [facility] Last Admin: 08/31/21 10:53 Dose: 40 mg Documented by: Furosemide (Furosemide 80 Mg Tab) 80 mg PO BID@0900,1600 [facility] Last Admin: 08/31/21 10:53 Dose: 80 mg Documented by: Gabapentin (Gabapentin 100 Mg Cap) 100 mg PO BID [facility] Last Admin: 08/31/21 10:53 Dose: 100 mg Documented by: Insulin Aspart (Insulin Aspart (Novolog) 100 Unit/Ml Vial) 0 unit SQ ACHS [facility]; Protocol Last Admin: 08/31/21 12:09 Dose: Not Given Documented by: Insulin Detemir (Insulin Detemir (Levemir) 100 Unit/Ml Syr) 46 unit SQ HS [facility] Last Admin: 08/30/21 21:40 Dose: 46 unit Documented by: Lactulose (Lactulose 20 Gm/30 Ml Cup) 20 gm PO DAILY PRN PRN Reason: Constipation Last Admin: 08/28/21 23:23 Dose: 20 gm Documented by: Lisinopril (Lisinopril 5 Mg Tab) 5 mg PO DAILY [facility] Last Admin: 08/31/21 10:53 Dose: 5 mg Documented by: Melatonin (Melatonin 3 Mg Tablet) 3 mg PO HS PRN PRN Reason: Insomnia Last Admin: 08/28/21 23:24 Dose: 3 mg Documented by: Methocarbamol (Methocarbamol 500 Mg Tab) 500 mg PO QID PRN PRN Reason: Muscle Spasm Metoprolol Succinate (Metoprolol Succinate (Er) 50 Mg Tab.Er.24h) 100 mg PO DAILY [facility] Last Admin: 08/31/21 10:52 Dose: 100 mg Documented by: Morphine Sulfate (Morphine Sulfate Ir 15 Mg Tablet) 30 mg PO QID PRN PRN Reason: Pain Last Admin: 08/31/21 10:56 Dose: 30 mg Documented by: Naloxone HCl (Naloxone 0.4 Mg/Ml 1 Ml Vial) 0.2 mg IV Q2M PRN PRN Reason: Opioid Reversal Nicotine (Nicotine 7mg/24hr Patch) 1 patch TRANSDERM DAILY [facility] Last Admin: 08/31/21 11:04 Dose: 1 patch Documented by: Ondansetron HCl (Ondansetron 4 Mg/2 Ml Vial) 4 mg IVP Q8HR PRN PRN Reason: Nausea And Vomiting Last Admin: 08/31/21 10:56 Dose: 4 mg Documented by: Spironolactone (Spironolactone 25 Mg Tab) 25 mg PO DAILY [facility] Last Admin: 08/31/21 10:53 Dose: 25 mg Documented by: Past medical history to include: COPD, CHF-EF 20%, diabetes, GERD, hyperlipidemia, hypertension,(s) sleep apnea uses CPAP sometimes, ischemic cardiomyopathy, chronic cervical back pain and DJD, diabetic foot wounds Social history: Lives with his 20 -year-old son. Does use a cane. Disabled. 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 Been smoking 2 packs a day for most of his life now down to quarter pack a day. Heavy drinking in the past quit 20 years ago. 4 hits of marijuana nightly. Family history: Reviewed, noncontributory to presentation Physical examination: VITAL SIGNS: 98.4, 71, 20, 138/76, 94% room air GENERAL: , Sitting at the edge the bed, comfortable EYES: Pupils equal. Conjunctiva normall. HEENT: External appearance of nose and ears normal, oral cavity grossly normal. NECK: JVD unable to assess; masses not palpable. HEART: First and second heart sounds are normal; significant edema present. LUNGS: Respiratory rate increased; diminished breath sounds ABDOMEN: Soft, mild distention nontender, liver spleen not palpable, no masses palpable. PSYCH: Alert and oriented x3; mood and affect anxious. MUSCULOSKELETAL:No Clubbing/cyanosis;muscles-grossly intact DERMATOLOGICAL: Wound on the plantar surface/lateral of left foot. Ichthyosis especially lower extremity bilateral NEUROLOGICAL: Cranial nerves grossly intact; no facial asymmetry, decreased sensation distally INVESTIGATIONS, reviewed in the clinical context: August 31: Potassium 4.4 creatinine 1.16 August 30: Sodium 134 BUN 39 creatinine 1.31. Accu-Cheks 73, 74 Selective left lower extremity angiogram: Good to fair circulation. August 28: Sodium 137 potassium 4.5 creatinine 1.18 August 24: Sodium 134 potassium 3.6 creatinine 0.82 Left foot x-ray: Dorsal dislocation at the fifth digit at the MTP joint. Questionable osteomyelitis/fracture fragment White count 15.7 hemoglobin 14.3 platelets 235 sodium 136 potassium 3.9 BUN 17 creatinine 0.74. Blood glucose 69 Total bilirubin 1.6 AST 126 ALT 162 ProBNP 6330 Coronavirus PCF: Not detected 2-D echocardiogram: Moderate concentric LVH. EF less than 20% right ventricle [id number] enlargement. Severe pulmonary hypertension EKG tracing personally reviewed by me-sinus tachycardia. Rate 117. Some ST segment changes Chest x-ray film personally reviewed by me-cardia megaly. Venous prominence. AICD Assessment and plan: -Acute on chronic congestive heart failure exacerbation from nonischemic cardiomyopathy systolic dysfunction EF less than 20%: Better Lasix drip discontinued. IV Lasix changed to by mouth 80 mg twice a day.. Fluid restriction 1500 mL Strict I's and O's. Toprol. Aldactone AICD -Acute COPD exacerbation in a current smoker: Better DuoNeb 4 times a day. Nebulized Pulmicort -Diabetes mellitus type 2 chronically on insulin, uncontrolled with hyperglycemia and hypoglycemia. Levemir 46 units subcu daily at bedtime. Diabetic diet. Accu-Cheks and sliding scale -Hyperlipidemia Lipitor 40 mg daily at bedtime -Essential hypertension Toprol-XL 50 mg a day -Obstructive sleep apnea sometimes uses CPAP machine -Diabetic peripheral neuropathy Neurontin 100 mg twice a day -Anxiety Celexa, Cymbalta -DJD Tylenol when necessary -Chronic nicotine dependence patient cigarette smoker Nicotine patch 7 -AICD -Acute on Chronic left plantar diabetic foot wound and left foot fourth and fifth toe osteomyelitis IV Zosyn. Status post debridement by Dr. Trent on August 25. Culture results pending. Patient was offered amputation of left fourth and fifth toe amputation. Patient is declined. -Lower extremity significant venous insufficiency Fredy wrap's Cultures pending. Patient has declined amputation. IV antibiotic as per ID. Discussed with patient. Continue
[2021-08-31 16:38] LABS: Glucose,Whole Blood 125 mg/dL (75-99)
[2021-08-31 20:25] LABS: Glucose,Whole Blood 178 mg/dL (75-99)
[2021-08-31] MEDS: CITALOPRAM HYDROBROMIDE 20 MG TAB PO SCH (20:38)
[2021-08-31] MEDS: ATORVASTATIN 40 MG TAB PO SCH (20:38)
[2021-08-31] MEDS: INSULIN DETEMIR (LEVEMIR) 100 UNIT/ML SYR SQ SCH (20:38)
[2021-09-01 06:15] LABS: Glucose,Whole Blood 148 mg/dL (75-99)
[2021-09-01] MEDS: INSULIN ASPART (NovoLOG) 100 UNIT/ML VIAL SQ SCH ×4 (06:41→19:32)
[2021-09-01] MEDS: BUDESONIDE 1 MG/2 ML NEBU INHALATION SCH ×2 (07:11→19:45)
[2021-09-01] MEDS: IPRATROPIUM-ALBUTEROL 3 ML NEB INHALATION SCH ×4 (07:12→19:45)
[2021-09-01] MEDS: MORPHINE SULFATE IR 15 MG TABLET PO PRN ×2 (08:43→15:23)
[2021-09-01] MEDS: ASPIRIN 81 MG PO SCH (08:44)
[2021-09-01] MEDS: lisinopriL 5 MG TAB PO SCH (08:45)
[2021-09-01] MEDS: ENOXAPARIN 40 MG/0.4 ML SYRINGE SQ SCH (08:45)
[2021-09-01] MEDS: METOPROLOL SUCCINATE (ER) 50 MG TAB.ER.24H PO SCH (08:45)
[2021-09-01] MEDS: GABAPENTIN 100 MG CAP PO SCH ×2 (08:45→19:36)
[2021-09-01] MEDS: FUROSEMIDE 80 MG TAB PO SCH ×2 (08:45→15:23)
[2021-09-01] MEDS: SPIRONOLACTONE 25 MG TAB PO SCH (08:45)
[2021-09-01] MEDS: DULoxetine HCL 60 MG CAPSULE.DR PO SCH ×2 (08:45→19:36)
[2021-09-01] MEDS: NICOTINE 7MG/24HR PATCH TRANSDERM SCH (08:45)
[2021-09-01 11:47] LABS: Glucose,Whole Blood 167 mg/dL (75-99)
--- NOTE | 2021-09-01 11:53 | P.PN ---
Subjective Progress Note Date: 09/01/21 HISTORY OF PRESENT ILLNESS: This is a pleasant 51-year-old male past medical history significant for mild nonobstructive coronary artery disease, dilated cardiomyopathy, chronic systolic heart failure, status post AICD in 2014, type 2 diabetes, hypertension, dyslipidemia, chronic nicotine dependence, COPD, diabetic foot wounds. He follows in the office with Dr. Abbasi. We have been asked to see in consultation for congestive heart failure. Patient presents emergency department with worsening bilateral lower extremity edema and shortness of breath. He states that for about 2 weeks he has been having symptoms of extremity edema he states that he increased his lasix himself and has some improvement, however, his symptoms worsened again and he decided to come to the emergency department for further evaluation. He has not followed up with Dr. Abbasi since 07/2020. He is having symptoms of orthopnea. He denies chest pain, lightheadedness dizziness, syncope or near syncope. He also endorses a left foot wound that has not healed. DIAGNOSTICS Most recent Echo 01/2020 in the office revealed an EF of 23%, dilated cardiomyopathy, mild mitral regurgitation, mild tricuspid regurgitation EKG reveals sinus tachycardia, heart rate 117, LVH, poor R wave progression, no significant ST ST-T wave abnormalities. Telemetry tracings indicate sinus mechanism HR 110-120 Chest xray vascular congestion Current home medications include atorvastatin 40 mg nightly, Lasix 80 mg twice a day, Toprol succinate 50 mg daily, aspirin 81 mg daily Lasix, WBC 15.7, hemoglobin 14.3, platelets 235, sodium 136, potassium 3.9, BUN 17, serum creatinine 0.7, magnesium 2.0, proBNP 6230, COVID-19 negative Most recent cardiac catheterization 11/2017 revealed minimal coronary artery disease with mild irregularities in the RCA and mid LAD 08/24/2021 Patient examined this morning at the bedside. Patient denies chest pain or pressure. He currently denies shortness of breath. He continues to have lower extremity edema. He is maintained on a Lasix drip at 10 mg an hour. Patient has mildly tachycardic this morning. Blood pressure 116/73. Kidney function stable with a creatinine of 0.82. Echocardiogram completed revealing ejection fraction less than 20%, mild mitral regurgitation, mild tricuspid regurgitation, and severe pulmonary hypertension. 08/25/2021 Patient examined this morning at the bedside. Patient denies chest pain or pressure. Currently denying tenderness of breath. He continues to report lower extremity edema which he does not feel as improved since yesterday. He is maintained on a Lasix drip at 10 mg an hour. Kidney function remains stable with a creatinine of 1.19. Fluid balance over the last 24 hours is -1158 mL. Vital signs are stable. 08/28/2021 Patient examined this morning at the bedside. Patient denies chest pain or pressure. Reports mild SOB. He remains on a IV lasix infusion at 10mg/hr. Fluid balance over the last 24 hours is -981cc. Vital signs are stable. 08/29/2021 Patient examined this morning at the bedside. Patient denies chest pain or pressure. Patient currently denies shortness of breath. He remains on IV Lasix 80 mg every 12 hours. Creatinine remains stable today at 1.08. Fluid balance over the last 24 hours is -1435 mL. Patient's lower extremity edema this appears to be slowly improving. 08/30/2021 Patient examined this morning at the bedside. Patient underwent lower extremity angiogram today with vascular surgery. Patient is complaining of back pain this morning secondary to laying flat in bed. He reports mild shortness of breath secondary to his pain and states he is unable to take a deep breath. He denies chest pain or pressure. Patient remains on IV Lasix. Patient's creatinine incr eased today to 1.31. Fluid balance over the last 24 hours is -1300 mL. 08/31/2021 Patient examined this point the bedside. Patient states his back pain has improved today. He denies chest pain or pressure. He reports mild shortness of breath and continued lower extremity edema. He remains on oral Lasix 80 mg twice a day. Patient's renal function today has improved with a creatinine of 1.16. Vital signs are stable. Blood pressure 138/76. Telemetry reveals sinus mechanism with heart rate in the 70s. 09/01/2021 Patient examined this morning at bedside. Patient reports he is tired today. He denies chest pain or pressure. He states his breathing is "so-so". Patient remains on oral Lasix. Kidney function is stable. Vascular surgery recommended amputation of left toes but at this time patient has declined to have this performed. PHYSICAL EXAM: VITAL SIGNS: Reviewed. GENERAL: Well-developed in no acute distress. NECK: Supple. No JVD or thyromegaly LUNGS: Respirations even and unlabored. Lungs diminished bilaterally. HEART: Regular rate and rhythm. S1 and S2 heard. Systolic murmur noted. EXTREMITIES: Normal range of motion. No clubbing or cyanosis. Peripheral pulses intact. 2+ bilateral lower extremity edema ASSESSMENT: Acute on chronic heart failure with reduced ejection fraction, systolic Dilated, nonischemic cardiomyopathy status post AICD implantation in 2014 Type 2 diabetes Hypertension Dyslipidemia Chronic nicotine dependence COPD Left nonhealing foot wound Leukocytosis Acute kidney injury PLAN: Continue current cardiac medications No further inpatient recommendations from a cardiac standpoint We will sign off. Please reconsult if needed. Nurse practitioner note has been reviewed by physician. Signing provider agrees with the documented findings, assessment, and plan of care. Objective - Vital Signs Vital signs: Vital Signs Temp 97.6 F 09/01/21 08:00 Pulse 75 09/01/21 11:22 Resp 20 09/01/21 08:00 BP 93/53 09/01/21 08:00 Pulse Ox 95 09/01/21 08:00 Intake & Output 08/31/21 09/01/21 09/01/21 18:59 06:59 18:59 Intake Total 480 240 837 Output Total 1500 250 600 Balance -1020 -10 237 Weight 116.6 kg Intake: Oral 480 240 837 Output: Urine 1500 250 600 Other: Voiding Method Urinal Urinal Urinal # Voids 1 # Bowel Movements 1 - Labs CBC & Chem 7: 08/29/21 07:14 08/31/21 07:36 Labs: Abnormal Lab Results - Last 24 Hours (Table) 08/31/21 08/31/21 09/01/21 Range/Units 16:34 20:24 06:14 POC Glucose (mg/dL) 125 H 178 H 148 H (75-99) mg/dL 09/01/21 Range/Units 11:45 POC Glucose (mg/dL) 167 H (75-99) mg/dL Microbiology - Last 24 Hours (Table) 08/29/21 11:59 Gram Stain - Final Foot - Left Wound Culture - Final
[2021-09-01] MEDS: ACETAMINOPHEN TAB 325 MG TAB PO PRN (13:03)
[2021-09-01] MEDS ORDERED: LIDOCAINE 1% INJ 10MG/ML (20 ML MDV) SQ ONE (14:43)
[2021-09-01] MEDS: metroNIDAZOLE 500 MG TAB PO SCH ×2 (15:23→19:36)
[2021-09-01 16:25] LABS: Glucose,Whole Blood 177 mg/dL (75-99)
[2021-09-01 17:45] VITALS: TEMP 97.2
[2021-09-01 19:32] LABS: Glucose,Whole Blood 115 mg/dL (75-99)
[2021-09-01] MEDS: ATORVASTATIN 40 MG TAB PO SCH (19:36)
[2021-09-01] MEDS: CITALOPRAM HYDROBROMIDE 20 MG TAB PO SCH (19:36)
[2021-09-01 19:39] VITALS: BP 109/76; PULSE 74; RESP 18
[2021-09-01] MEDS: INSULIN DETEMIR (LEVEMIR) 100 UNIT/ML SYR SQ SCH (20:38)
[2021-09-01 20:48] LABS: Glucose,Whole Blood 112 mg/dL (75-99)
--- NOTE | 2021-09-02 18:10 | P.DS ---
Providers Date of admission: 08/23/21 11:20 Expected date of discharge: 09/01/21 Attending physician: Buck Johnson Consults: 08/25/21 11:20 Consult Physician Urgent Consulting Provider: Yesenia Doyle Consult Reason/Comments: possible om of left foot, diabetic wound Do you want consulting provider notified?: Yes Primary care physician: [facility] Course: Chief Complaint: Abdominal pain History of presenting complaint: This is a pleasant 51-year-old patient of Dr. Hany Rodríguez. Chronic stable medical conditions include nonischemic CHF EF less than 20%, COPD, diabetes, GERD, hypertension, hyperlipidemia, obstructive sleep apnea with CPAP, AICD and a pacemaker. Patient lives with his 20-year-old son. Normally uses a cane to get about. did drink heavily in the past and quit 20 years ago. Still an active smoker. Patient now presents for noticing increasing swelling in the lower extremity. At least for 2 weeks. Normally uses 2 pillows. Some persistent supple disease. More orthopnea. Has a cough. No sputum. No fever no chills. Decreased appetite. More short of breath. Some wheezing. Patient also has a wound on the left foot for which she followed at the wound care center. Denies any drainage. But wants it to be looked at. Patient has continued to smoke. Admitted with acute CHF exacerbation EF less than 20%-put on Lasix drip, acute COPD exacerbation-put on DuoNeb and nebulized steroids, diabetic foot wound for which vascular and wound care consulted. IV Zosyn. Fredy wrap lower extremity. August 17: Excisional debridement of nonviable tissue nonhealing wound left foot plantar surface carried out by Dr. Trent. Patient responded well to IV Lasix drip. Good urine output. Also patient does of insulin was cut back. Had about 6 L in negative fluid balance vascular surgery offered amputation on the fourth and fifth toe due to osteomyelitis. Patient declined the same. Wound cultures came back negative. For neuropathy pain Neurontin was started.. August 28: Patient is a Lasix drip is being changed over to IV Lasix bolus. Patient's been over 4 L in negative fluid balance. Breathing slightly better. Lower extremity edema present. Dressing of left foot. Eating all his meals. September 02.: Care was discussed with the patient. Questions answered. He will follow up with vascular for possible amputation outpatient. ID will have the patient on IV ceftriaxone 2 g daily for 34 days. Midline ordered. Patient will follow at wound care center Discussion and discharge planning more than 35 minutes Past medical history to include: COPD, CHF-EF 20%, diabetes, GERD, hyperlipidemia, hypertension,(s) sleep apnea uses CPAP sometimes, ischemic cardiomyopathy, chronic cervical back pain and DJD, diabetic foot wounds Social history: Lives with his 20 -year-old son. Does use a cane. Disabled. 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 Been smoking 2 packs a day for most of his life now down to quarter pack a day. Heavy drinking in the past quit 20 years ago. 4 hits of marijuana nightly. Family history: Reviewed, noncontributory to presentation Physical examination: VITAL SIGNS: 97.2, 74, 20, 99/71, 96% room air GENERAL: , comfortable EYES: Pupils equal. Conjunctiva normall. HEENT: External appearance of nose and ears normal, oral cavity grossly normal. NECK: JVD unable to assess; masses not palpable. HEART: First and second heart sounds are normal; significant edema present. LUNGS: Respiratory rate increased; diminished breath sounds ABDOMEN: Soft, mild distention nontender, liver spleen not palpable, no masses palpable. PSYCH: Alert and oriented x3; mood and affect anxious. MUSCULOSKELETAL:No Clubbing/cyanosis;muscles-grossly intact DERMATOLOGICAL: Wound on the plantar surface/lateral of left foot. Ichthyosis especially lower extremity bilateral NEUROLOGICAL: Cranial nerves grossly intact; no facial asymmetry, decreased se nsation distally INVESTIGATIONS, reviewed in the clinical context: August 31: Potassium 4.4 creatinine 1.16 Wound culture: Negative Selective left lower extremity angiogram: Good to fair circulation. Left foot x-ray: Dorsal dislocation at the fifth digit at the MTP joint. Questionable osteomyelitis/fracture fragment White count 15.7 hemoglobin 14.3 platelets 235 sodium 136 potassium 3.9 BUN 17 creatinine 0.74. Blood glucose 69 Total bilirubin 1.6 AST 126 ALT 162 ProBNP 6330 Coronavirus PCF: Not detected 2-D echocardiogram: Moderate concentric LVH. EF less than 20% right ventricle [id number] enlargement. Severe pulmonary hypertension EKG tracing personally reviewed by me-sinus tachycardia. Rate 117. Some ST segment changes Chest x-ray film personally reviewed by me-cardia megaly. Venous prominence. AICD Assessment and plan: -Acute on chronic congestive heart failure exacerbation from nonischemic cardiomyopathy systolic dysfunction EF less than 20%: Better Lasix drip discontinued. IV Lasix changed to by mouth 80 mg twice a day.. Fluid restriction 1500 mL Strict I's and O's. Toprol. Aldactone AICD. Discharge in Aldactone 25 mg a day. Lasix 80 mg twice a day -Acute COPD exacerbation in a current smoker: Better DuoNeb 4 times a day. Nebulized Pulmicort DC on Symbicort. DuoNeb. -Diabetes mellitus type 2 chronically on insulin, uncontrolled with hypergly cemia and hypoglycemia. Levemir 46 units subcu daily at bedtime. Diabetic diet. Accu-Cheks and sliding scale -Hyperlipidemia Lipitor 40 mg daily at bedtime -Essential hypertension Toprol-XL 50 mg a day -Obstructive sleep apnea sometimes uses CPAP machine -Diabetic peripheral neuropathy Neurontin 100 mg twice a day -Anxiety Celexa, Cymbalta -DJD Tylenol when necessary -Chronic nicotine dependence patient cigarette smoker Nicotine patch 7 -AICD -Acute on Chronic left plantar diabetic foot wound and left foot fourth and fifth toe osteomyelitis IV Zosyn. Status post debridement by Dr. Trent on August 25. Culture: Negative. Patient was offered amputation of left fourth and fifth toe amputation. Patient declined. -Lower extremity significant venous insufficiency Fredy wrap's Disposition: Home Plan - Discharge Summary Discharge Rx Participant: No New Discharge Prescriptions: New Nicotine 7Mg/24Hr Patch [Habitrol] 1 patch TRANSDERM DAILY #30 patch Budesonide/Formoterol Fumarate [Symbicort 160-4.5 Mcg Inhaler] 1 puff INHALATION BID #10.2 gm Metoprolol Succinate (ER) [Toprol Xl] 100 mg PO DAILY #30 tab metroNIDAZOLE [Flagyl] 500 mg PO TID #90 tab cefTRIAXone [Rocephin] 2 gm IVPB Q24H #34 each Spironolactone [Aldactone] 25 mg PO DAILY #30 tab Ipratropium-Albuterol Nebulize [Duoneb 0.5 mg-3 mg/3 ml Soln] 3 ml INHALATION TID #90 ml Cyclobenzaprine [Flexeril] 5 mg PO TID PRN #30 tablet PRN Reason: Spasms Gabapentin [Neurontin] 100 mg PO BID #60 cap lisinopriL [Zestril] 5 mg PO HS #30 tab Continue Morphine Sulfate Ir [MSIR] 30 mg PO QID PRN PRN Reason: Pain DULoxetine HCL [Cymbalta] 60 mg PO BID Furosemide [Lasix] 80 mg PO BID Atorvastatin [Lipitor] 40 mg PO HS Aspirin EC [Ecotrin Low Dose] 81 mg PO DAILY Citalopram Hydrobromide 40 mg PO HS Changed Insulin Glargine,Hum.rec.anlog [Toujeo Solostar] 25 units SQ BID #0 Discontinued Metoprolol Succinate [Toprol XL] 50 mg PO DAILY Discharge Medication List Morphine Sulfate Ir [MSIR] 30 mg PO QID PRN 02/05/19 [History] DULoxetine HCL [Cymbalta] 60 mg PO BID 11/28/19 [History] Furosemide [Lasix] 80 mg PO BID 11/28/19 [History] Aspirin EC [Ecotrin Low Dose] 81 mg PO DAILY 08/23/21 [History] Atorvastatin [Lipitor] 40 mg PO HS 08/23/21 [History] Citalopram Hydrobromide 40 mg PO HS 08/23/21 [History] Budesonide/Formoterol Fumarate [Symbicort 160-4.5 Mcg Inhaler] 1 puff INHALATION BID #10.2 gm 09/01/21 [Rx] Cyclobenzaprine [Flexeril] 5 mg PO TID PRN #30 tablet 09/01/21 [Rx] Gabapentin [Neurontin] 100 mg PO BID #60 cap 09/01/21 [Rx] Insulin Glargine,Hum.rec.anlog [Toujeo Solostar] 25 units SQ BID #0 09/01/21 [Rx] Ipratropium-Albuterol Nebulize [Duoneb 0.5 mg-3 mg/3 ml Soln] 3 ml INHALATION TID #90 ml 09/01/21 [Rx] Metoprolol Succinate (ER) [Toprol Xl] 100 mg PO DAILY #30 tab 09/01/21 [Rx] Nicotine 7Mg/24Hr Patch [Habitrol] 1 patch TRANSDERM DAILY #30 patch 09/01/21 [Rx] Spironolactone [Aldactone] 25 mg PO DAILY #30 tab 09/01/21 [Rx] cefTRIAXone [Rocephin] 2 gm IVPB Q24H #34 each 09/01/21 [Rx] lisinopriL [Zestril] 5 mg PO HS #30 tab 09/01/21 [Rx] metroNIDAZOLE [Flagyl] 500 mg PO TID #90 tab 09/01/21 [Rx] Follow up Appointment(s)/Referral(s): Hany Rodríguez MD [Primary Care Provider] - 1-2 days Lacie Munoz DO [STAFF PHYSICIAN] - 1 Week [facility], [NON-STAFF] - [facility], [REFERRING] - 09/01/21 8:00 pm (Will deliver today between 6-8 PM and start infusions tomorrow with [facility]. ) Yesenia Doyle MD [STAFF PHYSICIAN] - 1 Week Cliff Abbasi MD [STAFF PHYSICIAN] - 2 Weeks Ambulatory/Diagnostic Orders: Basic Metabolic Panel [LAB.AMB] Location: None Selected C Reactive Protein [LAB.AMB] Location: None Selected Complete Blood Count w/diff [LAB.AMB] Location: None Selected Erythrocyte Sedimentation Rate [LAB.AMB] Location: None Selected Patient Instructions/Handouts: Heart Failure (DC), Information About Antibiotic Use (GEN) Activity/Diet/Wound Care/Special Instructions: fluid restriction 60 oz/day follow at wound care center antibiotics per dr doyle Discharge Disposition: HOME SELF-CARE
--- NOTE | 2021-09-04 10:43 | IR ---
EXAMINATION TYPE: IR cvc insert >=5 years DATE OF EXAM: 09/01/2021 COMPARISON: NONE CLINICAL HISTORY: Infection Needs long-term intravenous access for antibiotics. PROCEDURE: Hand hygiene obtained with soap and water and alcohol-based hand rub. After informed consent, the skin overlying the right basilic vein was localized with ultrasound and n oted to be compressible and patent. An ultrasound image was obtained and submitted on the patient's chart. The overlying skin was prepped and draped and Lidocaine was used for local anesthesia. A ski n shemar was made with a scalpel. Access was gained to the vein under ultrasound guidance with a 21 ga uge needle and a 0.018 inch wire was advanced. Access site was dilated with Peel-Away sheath and cat heter tailored to the appropriate length and advanced such that the distal tip is at the cavoatrial j unction. Spot image was obtained verifying placement. Catheter was fixed to the skin and a sterile dressing was placed following hemostasis. Catheter was aspirated and flushed with saline. Patient w as discharged in stable condition without complication.Maximal barrier technique is utilized. Ultras ound image is documented on the chart. Ultrasound used with sterile technique. Fluoro time and fluoroscopic images submitted to document procedure: 48 intraoperative C-arm images d ocument the procedure, 1 minute fluoroscopy time was utilized IMPRESSION: STATUS POST ULTRASOUND AND FLUOROSCOPIC GUIDED PICC LINE PLACEMENT, READY FOR USE. THIS PROCEDURE WAS PERFORMED BY THE UNDERSIGNED.
== END 2021-09-01 20:40 | disposition home or self-care (01) | DRG 622 ==
LOC: EC 21:53 → 6NMEDSUR 08-23 04:58 → 3SCARD 08-23 09:09 → OBSVTOIN 08-23 11:20 → 3SCARD 08-23 16:03
PROVIDERS: ADMIT Hospitalist; ATTEND Hospitalist
PROC: 0JBR0ZZ Excision of Left Foot Subcutaneous Tissue and Fascia, Open Approach (ICD-10-PCS; principal; 2021-08-25 07:30)
PROC: B41G1ZZ Fluoroscopy of Left Lower Extremity Arteries using Low Osmolar Contrast (ICD-10-PCS; 2021-08-30 08:30)
PROC: B4101ZZ Fluoroscopy of Abdominal Aorta using Low Osmolar Contrast (ICD-10-PCS; 2021-08-30 08:30)
PROC: 02HV33Z Insertion of Infusion Device into Superior Vena Cava, Percutaneous Approach (ICD-10-PCS; 2021-09-01)
DX: E11.69 Type 2 diabetes mellitus with other specified complication (principal); I50.23 Acute on chronic systolic (congestive) heart failure; J44.1 Chronic obstructive pulmonary disease with (acute) exacerbation; L03.116 Cellulitis of left lower limb; L97.526 Non-pressure chronic ulcer of other part of left foot with bone involvement without evidence of necrosis; M86.172 Other acute osteomyelitis, left ankle and foot; I42.0 Dilated cardiomyopathy; I11.0 Hypertensive heart disease with heart failure; N17.9 Acute kidney failure, unspecified; E11.42 Type 2 diabetes mellitus with diabetic polyneuropathy; E11.621 Type 2 diabetes mellitus with foot ulcer; E11.65 Type 2 diabetes mellitus with hyperglycemia; E11.51 Type 2 diabetes mellitus with diabetic peripheral angiopathy without gangrene; E78.5 Hyperlipidemia, unspecified; F17.210 Nicotine dependence, cigarettes, uncomplicated; F41.9 Anxiety disorder, unspecified; F90.9 Attention-deficit hyperactivity disorder, unspecified type; Z20.822 Contact with and (suspected) exposure to COVID-19; G47.33 Obstructive sleep apnea (adult) (pediatric); I25.10 Atherosclerotic heart disease of native coronary artery without angina pectoris; I25.2 Old myocardial infarction; I25.5 Ischemic cardiomyopathy; I27.20 Pulmonary hypertension, unspecified; I87.2 Venous insufficiency (chronic) (peripheral); K21.9 Gastro-esophageal reflux disease without esophagitis; M19.90 Unspecified osteoarthritis, unspecified site; Z79.4 Long term (current) use of insulin; Z79.82 Long term (current) use of aspirin; Z79.899 Other long term (current) drug therapy; Z81.1 Family history of alcohol abuse and dependence; Z95.810 Presence of automatic (implantable) cardiac defibrillator; Z86.14 Personal history of Methicillin resistant Staphylococcus aureus infection; Z88.1 Allergy status to other antibiotic agents; Z88.8 Allergy status to other drugs, medicaments and biological substances
CPT/HCPCS: 36246; 36415; 36573; 64445; 64447; 71046; 75625; 75716; 76937; 76942; 80048; 80053; 83036; 83735; 83880; 84132; 84145; 85025; 87070; 87205; 87635; 93005; 93306; 93922; 94640; 99285

== ENCOUNTER 2022-02-15 14:44 | Emergency (ER) | payer MEDICARE, OTHER ==
[2022-02-15 14:59] VITALS: RESP 18; TEMP 98.4
[2022-02-15] MEDS ORDERED: HYDROmorphone 1 MG/ML 1 ML SYRINGE IM STA (15:35)
--- NOTE | 2022-02-15 15:43 | ED ---
General Adult HPI - General Chief complaint: Extremity Injury, Lower Stated complaint: Bilat foot pain Time Seen by Provider: 02/15/22 15:30 Source: patient, EMS, RN notes reviewed, old records reviewed Mode of arrival: EMS Limitations: no limitations - History of Present Illness Initial comments: Patient states he has chronic low back pain and bilateral lower extremity pain due to diabetes. He states he takes morphine 30 mg, 4 times a day but is out and he needs to see his pain management doctor or his primary care doctor for refills however he has no transportation. He took an ambulance here just to get pain control. Denies any fevers, no chest pain or difficulty breathing. -: year(s) Location: left, right, lower extremity (feet) Severity scale (1-10): 10 Quality: constant Consistency: constant Improves with: medication (morphine) Associated Symptoms: other (chronic back pain) Treatments Prior to Arrival: none - Related Data Home Medications Medication Instructions Recorded Confirmed DULoxetine HCL [Cymbalta] 60 mg PO BID 11/28/19 08/23/21 Furosemide [Lasix] 80 mg PO BID 11/28/19 08/23/21 Aspirin EC [Ecotrin Low Dose] 81 mg PO DAILY 08/23/21 08/23/21 Atorvastatin [Lipitor] 40 mg PO HS 08/23/21 08/23/21 Citalopram Hydrobromide 40 mg PO HS 08/23/21 08/23/21 [Citalopram HBr] Previous Rx's Medication Instructions Recorded Budesonide/Formoterol Fumarate 1 puff INHALATION BID #10.2 gm 09/01/21 [Symbicort 160-4.5 Mcg Inhaler] Cyclobenzaprine [Flexeril] 5 mg PO TID PRN #30 tablet 09/01/21 Gabapentin [Neurontin] 100 mg PO BID #60 cap 09/01/21 Insulin Glargine,Hum.rec.anlog 25 units SQ BID #0 09/01/21 [Toujeo Solostar] Ipratropium-Albuterol Nebulize 3 ml INHALATION TID #90 ml 09/01/21 [Duoneb 0.5 mg-3 mg/3 ml Soln] Metoprolol Succinate (ER) [Toprol 100 mg PO DAILY #30 tab 09/01/21 Xl] Nicotine 7Mg/24Hr Patch [Habitrol] 1 patch TRANSDERM DAILY #30 patch 09/01/21 Spironolactone [Aldactone] 25 mg PO DAILY #30 tab 09/01/21 cefTRIAXone [Rocephin] 2 gm IVPB Q24H #34 each 09/01/21 lisinopriL [Zestril] 5 mg PO HS #30 tab 09/01/21 metroNIDAZOLE [Flagyl] 500 mg PO TID #90 tab 09/01/21 Morphine Sulfate Ir [MSIR] 30 mg PO Q6HR PRN 3 Days #12 tab 02/15/22 Allergies Allergy/AdvReac Type Severity Reaction Status Date / Time azithromycin Allergy Anaphylaxis Verified 08/25/21 12:11 gemfibrozil [From Lopid] Allergy Rash/Hives Verified 08/25/21 12:11 Review of Systems ROS Statement: Those systems with pertinent positive or pertinent negative responses have been documented in the HPI. ROS Other: All systems not noted in ROS Statement are negative. Past Medical History Past Medical History: Asthma, Coronary Artery Disease (CAD), Chest Pain / Angina, Heart Failure, COPD, Diabetes Mellitus, GERD/Reflux, Hyperlipidemia, Hypertension, Myocardial Infarction (SC), Pneumonia, Sleep Apnea/CPAP/BIPAP, Supraventricular Tachycardia (SVT) Additional Past Medical History / Comment(s): Ischemic cardiomyopathy, chronic CHF, SVT, IDDM type II, KAMINI with CPAP occasionally used, chronic cervical/back pain, DJD, diabetic foot wounds x 4 months. Last Myocardial Infarction Date:: 12/11/17 History of Any Multi-Drug Resistant Organisms: MRSA Date of last positivie culture/infection: 03/10/20 MDRO Source:: MRSA TOE Past Surgical History: Adenoidectomy, AICD, Back Surgery, Cholecystectomy, EPS, Heart Catheterization, Pacemaker, Tonsillectomy Additional Past Surgical History / Comment(s): 12/10/17 cardiac cath, previous cardiac cath, 09/02/14 AICD/pacer, EGD/colonoscopy, low back surgery with fusion. Past Anesthesia/Blood Transfusion Reactions: Motion Sickness Additional Past Anesthesia/Blood Transfusion Reaction / Comment(s): Pt states he received blood with back surgery without reaction. Type of Cardiac Device: Permanent Pacemaker, AICD Device Placement Date:: 09-02-14 Past Psychological History: ADD/ADHD, Anxiety Smoking Status: Current some day smoker Past Alcohol Use History: Occasional Past Drug Use History: Marijuana - Past Family History Father Additional Family Medical History / Comment(s): Pt has not kept in close contact with his father for many yrs. Father was an alcoholic and pt believes he has from cirrhosis of the liver. Mother History Unknown: Yes Additional Family Medical History / Comment(s): Pt is not in contact with his mother or his father who he has heard had . General Exam Limitations: no limitations General appearance: alert, in no apparent distress Head exam: Present: atraumatic Eye exam: Absent: scleral icterus, conjunctival injection Neck exam: Present: full ROM. Absent: tenderness, meningismus Respiratory exam: Present: normal lung sounds bilaterally. Absent: respiratory distress, accessory muscle use Cardiovascular Exam: Present: regular rate Extremities exam: Present: other (Bilateral lower extremity venous stasis swelling chronic) Back exam: Present: tenderness (ls spine) Neurological exam: Present: alert, oriented X3 Psychiatric exam: Present: normal affect, normal mood Skin exam: Present: warm, dry. Absent: cyanosis, diaphoretic, pallor Course Vital Signs 02/15/22 02/15/22 14:50 16:42 Temperature 98.4 F Pulse Rate 82 84 Respiratory 18 18 Rate Blood Pressure 116/87 118/81 O2 Sat by Pulse 95 96 Oximetry Medical Decision Making - Medical Decision Making Patient presents with chronic pain to his lower back and bilateral lower extremities. Patient is afebrile, blood glucose is 80. He states he is unable to get into his primary care doctor due to lack of transportation. He knows that receiving this prescription for morphine will void his pain management contract. This is a one-time dose in the emergency room setting. Patient is agreeable and states understanding, states he has no other choice since he is unable to make it to his doctor's office. He states he is not taking any other controlled substances. He is no longer taking Neurontin. He does take Cymbalta. I did explain to the patient that he needs to be persistent in arranging for home care with his primary care doctor. Patient was given pain medication in the emergency room. He was ambulatory out of the emergency room. Case discussed with Dr. Garay. - Lab Data Lab Results 02/15/22 Range/Units 16:15 POC Glucose (mg/dL) 80 (70-110) mg/dL POC Glu Entry Tech ID De Leon, Jordan Disposition Clinical Impression: Chronic back pain, Chronic ulcer of left foot due to diabetes mellitus Disposition: HOME SELF-CARE Condition: Good Instructions (If sedation given, give patient instructions): Pain Management (ED), Chronic Pain (ED) Prescriptions: Morphine Sulfate Ir [MSIR] 30 mg PO Q6HR PRN 3 Days #12 tab PRN Reason: Pain Is patient prescribed a controlled substance at d/c from ED?: Yes When asked, does pt state using other controlled substances?: No If prescribed controlled substance>3 days was MAPS reviewed?: Yes If opioid is for acute pain is fill amount 7 days or less?: Yes If Rx opioid, was Start Talking consent form obtained?: Yes Referrals: Hany Rodríguez MD [Primary Care Provider] - 1-2 days Time of Disposition: 16:26
[2022-02-15 16:27] LABS: Glucose,Whole Blood 80 mg/dL (70-110)
[2022-02-15 16:44] VITALS: BP 118/81; PULSE 84
== END 2022-02-15 16:48 | disposition home or self-care (01) ==
LOC: EC 14:44
DX: E11.621 Type 2 diabetes mellitus with foot ulcer (principal); L97.429 Non-pressure chronic ulcer of left heel and midfoot with unspecified severity; G89.29 Other chronic pain; M54.50 Low back pain, unspecified; M79.671 Pain in right foot; J44.9 Chronic obstructive pulmonary disease, unspecified; I25.10 Atherosclerotic heart disease of native coronary artery without angina pectoris; E78.5 Hyperlipidemia, unspecified; I11.0 Hypertensive heart disease with heart failure; I25.2 Old myocardial infarction; F17.200 Nicotine dependence, unspecified, uncomplicated; Z79.82 Long term (current) use of aspirin; Z88.1 Allergy status to other antibiotic agents; Z88.9 Allergy status to unspecified drugs, medicaments and biological substances
CPT/HCPCS: 36415; 99283; 96372; J1170

== ENCOUNTER 2022-07-05 23:57 | Inpatient (IN) | payer MEDICARE, OTHER ==
[2022-07-06 04:50] LABS: Basophils # (A) 0.2 k/uL (0-0.2); Basophils % (A) 1 %; Eosinophils # (A) 0.6 k/uL (0-0.7); Eosinophils % (A) 5 %; HCT 43.3 % (39.0-53.0); Hypochromasia Slight; Lymphocytes # (A) 2.1 k/uL (1.0-4.8); Lymphocytes % (A) 19 %; MCH 29.3 pg (25.0-35.0); MCHC 32.2 g/dL (31.0-37.0); MCV 91.1 fL (80.0-100.0); Mean Platelet Volume 10.2; Monocytes # (A) 0.9 k/uL (0-1.0); Monocytes % (A) 8 %; Neutrophils # (A) 7.4 k/uL (1.3-7.7); Neutrophils % (A) 66 %; Platelet Count 204 k/uL (150-450); RBC 4.76 m/uL (4.30-5.90); RDW 13.3 % (11.5-15.5); WBC 11.2 k/uL (3.8-10.6)
[2022-07-06 04:59] LABS: ALT 23 U/L (4-49); AST 29 U/L (17-59); African American GFR (CKD) >90 (>60 ml/min/1.73 sqM); Albumin 3.9 g/dL (3.5-5.0); Alkaline Phosphatase 122 U/L (38-126); Anion Gap 10 mmol/L; Blood Urea Nitrogen 23 mg/dL (9-20); Calcium 8.7 mg/dL (8.4-10.2); Carbon Dioxide 28 mmol/L (22-30); Chloride 98 mmol/L (98-107); Glucose 146 mg/dL (74-99); Magnesium 2.2 mg/dL (1.6-2.3); Non-African American GFR(CKD) >90 (>60 ml/min/1.73 sqM); Potassium 4.4 mmol/L (3.5-5.1); Sodium 136 mmol/L (137-145); Total Bilirubin 0.9 mg/dL (0.2-1.3); Total Protein 7.4 g/dL (6.3-8.2)
[2022-07-06 05:31] LABS: INR 1.1 (<1.2); Partial Thromboplastin Time 25.1 sec (22.0-30.0); Prothrombin Time 11.3 sec (9.0-12.0)
[2022-07-06] MEDS ORDERED: FUROSEMIDE 10 MG/ML 10 ML VIAL IV STA (06:23)
[2022-07-06] MEDS ORDERED: AMPICILLIN-SULBACTAM 3 GM in SODIUM CHLORIDE 0.9% 100 ML IVPB STA (06:23)
--- NOTE | 2022-07-06 06:25 | XR ---
EXAMINATION TYPE: XR chest 2V DATE OF EXAM: 07/06/2022 COMPARISON: Chest x-ray August 29, 2021 HISTORY: Cough and chest pain. TECHNIQUE: Frontal and lateral views of the chest are obtained. FINDINGS: Persistent cardiomegaly with single lead pacemaker/defibrillator. Chronic parenchymal phillip nges bilaterally including the anterior linear scarring. No new focal airspace opacity, pleural effus ion, pneumothorax. Bilateral hilar prominence suggests underlying pulmonary artery hypertension. The osseous structures are intact. IMPRESSION: Chronic changes and cardiomegaly without acute pulmonary process.
--- NOTE | 2022-07-06 06:28 | ED ---
Extremity Problem HPI - General Chief complaint: Extremity Problem,Nontraumatic Stated complaint: leg pain swelling diabetic Time Seen by Provider: 07/06/22 03:47 Source: patient Mode of arrival: ambulatory Limitations: no limitations - History of Present Illness Initial comments: 52-year-old male with past history of asthma, coronary artery disease, con gestive heart failure, diabetes who presents to the emergency department with lower extremity swelling. Patient reports to chronic brawny edema however states over the past several days his swelling has been getting worse. He has been taking his diuretics as they are directed and has even taken 1-2 additional doses per day and he noted that he was gaining fluid. States that this did not help. Legs have now become red and warm. He denies any stool or drainage. He also admits to some increased shortness of breath. No fevers. No alleviating, precipitating or modifying factors - Related Data Home Medications Medication Instructions Recorded Confirmed Albuterol Inhaler [Ventolin Hfa 2 puff INHALATION RT-QID PRN 07/06/22 07/06/22 Inhaler] INSULIN LISPRO (humaLOG) [humaLOG] 5 - 10 unit SQ DAILY 07/06/22 07/06/22 Morphine Sulfate Ir [MSIR] 30 mg PO QID PRN 07/06/22 07/06/22 Previous Rx's Medication Instructions Recorded Budesonide/Formoterol Fumarate 1 puff INHALATION BID #10.2 gm 07/10/22 [Symbicort 160-4.5 Mcg Inhaler] Furosemide [Lasix] 60 mg PO BID #60 tablet 07/10/22 Insulin Glargine,Hum.rec.anlog 70 units SQ DAILY #0 07/10/22 [Toujeo Solostar] Ipratropium-Albuterol Nebulize 3 ml INHALATION TID #90 each 07/10/22 [Duoneb 0.5 mg-3 mg/3 ml Soln] Metoprolol Succinate (ER) [Toprol 50 mg PO DAILY #30 tab 07/10/22 XL] Nicotine 21Mg/24Hr Patch [Habitrol] 1 patch TRANSDERM DAILY #14 patch 07/10/22 Pantoprazole [Protonix] 40 mg PO AC-BRKFST #30 tab 07/10/22 Sacubitril/Valsartan [Entresto 24 1 each PO BID #60 tab 07/10/22 mg-26 mg Tablet] Spironolactone [Aldactone] 25 mg PO DAILY #30 tab 07/10/22 Allergies Allergy/AdvReac Type Severity Reaction Status Date / Time azithromycin Allergy Anaphylaxis Verified 07/16/22 20:37 gemfibrozil [From Lopid] Allergy Rash/Hives Verified 07/16/22 20:37 Review of Systems ROS Statement: Those systems with pertinent positive or pertinent negative responses have been documented in the HPI. ROS Other: All systems not noted in ROS Statement are negative. Past Medical History Past Medical History: Asthma, Coronary Artery Disease (CAD), Chest Pain / Angina, Heart Failure, COPD, Diabetes Mellitus, GERD/Reflux, Hyperlipidemia, Hypertension, Myocardial Infarction ([place]), Pneumonia, Sleep Apnea/CPAP/BIPAP, Supraventricular Tachycardia (SVT) Additional Past Medical History / Comment(s): Ischemic cardiomyopathy, chronic CHF, SVT, IDDM type II, KAMINI with CPAP occasionally used, chronic cervical/back pain, DJD, diabetic foot wounds x 4 months. Last Myocardial Infarction Date:: 12/11/17 History of Any Multi-Drug Resistant Organisms: MRSA Date of last positivie culture/infection: 03/10/20 MDRO Source:: MRSA TOE Past Surgical History: Adenoidectomy, AICD, Back Surgery, Cholecystectomy, EPS, Heart Catheterization, Pacemaker, Tonsillectomy Additional Past Surgical History / Comment(s): 12/10/17 cardiac cath, previous cardiac cath, 09/02/14 AICD/pacer, EGD/colonoscopy, low back surgery with fusion. Past Anesthesia/Blood Transfusion Reactions: Motion Sickness Additional Past Anesthesia/Blood Transfusion Reaction / Comment(s): Pt states he received blood with back surgery without reaction. Type of Cardiac Device: Permanent Pacemaker, AICD Device Placement Date:: 09-02-14 Past Psychological History: ADD/ADHD, Anxiety Smoking Status: Current every day smoker Past Alcohol Use History: Occasional Past Drug Use History: Marijuana - Past Family History Father Additional Family Medical History / Comment(s): Pt has not kept in close contact with his father for many yrs. Father was an alcoholic and pt believes he has from cirrhosis of the liver. Mother History Unknown: Yes Additional Family Medical History / Comment(s): Pt is not in contact with his mother or his father who he has heard had . General Exam Limitations: no limitations General appearance: alert, in no apparent distress Head exam: Present: atraumatic, normocephalic, normal inspection Eye exam: Present: normal appearance, PERRL, EOMI. Absent: scleral icterus, conjunctival injection, periorbital swelling ENT exam: Present: normal exam, mucous membranes moist Neck exam: Present: normal inspection. Absent: tenderness, meningismus, lymphadenopathy Respiratory exam: Present: normal lung sounds bilaterally. Absent: respiratory distress, wheezes, rales, rhonchi, stridor Cardiovascular Exam: Present: regular rate, normal rhythm, normal heart sounds. Absent: systolic murmur, diastolic murmur, rubs, gallop, clicks GI/Abdominal exam: Present: soft, normal bowel sounds. Absent: distended, tenderness, guarding, rebound, rigid Extremities exam: Present: normal inspection, full ROM, normal capillary refill, pedal edema. Absent: tenderness, joint swelling, calf tenderness Back exam: Present: normal inspection Neurological exam: Present: alert, oriented X3, CN II-XII intact Psychiatric exam: Present: normal affect, normal mood Skin exam: Present: warm, dry, intact, normal color. Absent: rash Course Vital Signs 07/06/22 07/06/22 07/06/22 00:36 07:45 14:06 Temperature 98.5 F Pulse Rate 95 97 83 Respiratory 18 20 18 Rate Blood Pressure 109/72 133/85 120/76 O2 Sat by Pulse 95 98 98 Oximetry 07/06/22 07/06/22 07/06/22 17:55 18:05 18:23 Temperature 98.1 F Pulse Rate 72 75 89 Respiratory 18 Rate Blood Pressure 137/106 O2 Sat by Pulse 98 Oximetry 07/06/22 07/06/22 19:24 20:10 Temperature 98.2 F Pulse Rate 72 84 Respiratory 16 Rate Blood Pressure 110/75 O2 Sat by Pulse 99 Oximetry Medical Decision Making - Medical Decision Making On arrival patient was placed into room 5. A thorough history and physical exam is performed. IV access established. Laboratory studies were conducted and reviewed. BNP is 2270. Chest x-ray demonstrates no acute process. He was given a dose of Unasyn for cellulitis. He is additionally given 60 mg of Lasix for his lower extremity edema. Recommended admission as he is feeling outpatient treatment. Spoke with Dr. Johnson was agreeable to admission - Lab Data Result diagrams: 07/07/22 05:29 07/10/22 06:09 Lab Results 07/06/22 07/06/22 07/06/22 Range/Units 04:39 04:39 04:39 WBC 11.2 H (3.8-10.6) k/uL RBC 4.76 (4.30-5.90) m/uL Hgb 14.0 (13.0-17.5) gm/dL Hct 43.3 (39.0-53.0) % MCV 91.1 (80.0-100.0) fL MCH 29.3 (25.0-35.0) pg MCHC 32.2 (31.0-37.0) g/dL RDW 13.3 (11.5-15.5) % Plt Count 204 (150-450) k/uL MPV 10.2 Neutrophils % 66 % Lymphocytes % 19 % Monocytes % 8 % Eosinophils % 5 % Basophils % 1 % Neutrophils # 7.4 (1.3-7.7) k/uL Lymphocytes # 2.1 (1.0-4.8) k/uL Monocytes # 0.9 (0-1.0) k/uL Eosinophils # 0.6 (0-0.7) k/uL Basophils # 0.2 (0-0.2) k/uL Hypochromasia Slight PT 11.3 (9.0-12.0) sec INR 1.1 (<1.2) APTT 25.1 (22.0-30.0) sec Sodium 136 L (137-145) mmol/L Potassium 4.4 (3.5-5.1) mmol/L Chloride 98 (98-107) mmol/L Carbon Dioxide 28 (22-30) mmol/L Anion Gap 10 mmol/L BUN 23 H (9-20) mg/dL Creatinine 0.85 (0.66-1.25) mg/dL Est GFR (CKD-EPI)AfAm >90 (>60 ml/min/1.73 sqM) Est GFR (CKD-EPI)NonAf >90 (>60 ml/min/1.73 sqM) Glucose 146 H (74-99) mg/dL Calcium 8.7 (8.4-10.2) mg/dL Magnesium 2.2 (1.6-2.3) mg/dL Total Bilirubin 0.9 (0.2-1.3) mg/dL AST 29 (17-59) U/L ALT 23 (4-49) U/L Alkaline Phosphatase 122 (38-126) U/L Troponin I (0.000-0.034) ng/mL NT-Pro-B Natriuret Pep pg/mL Total Protein 7.4 (6.3-8.2) g/dL Albumin 3.9 (3.5-5.0) g/dL 07/06/22 07/06/22 Range/Units 04:39 04:39 WBC (3.8-10.6) k/uL RBC (4.30-5.90) m/uL Hgb (13.0-17.5) gm/dL Hct (39.0-53.0) % MCV (80.0-100.0) fL MCH (25.0-35.0) pg MCHC (31.0-37.0) g/dL RDW (11.5-15.5) % Plt Count (150-450) k/uL MPV Neutrophils % % Lymphocytes % % Monocytes % % Eosinophils % % Basophils % % Neutrophils # (1.3-7.7) k/uL Lymphocytes # (1.0-4.8) k/uL Monocytes # (0-1.0) k/uL Eosinophils # (0-0.7) k/uL Basophils # (0-0.2) k/uL Hypochromasia PT (9.0-12.0) sec INR (<1.2) APTT (22.0-30.0) sec Sodium (137-145) mmol/L Potassium (3.5-5.1) mmol/L Chloride (98-107) mmol/L Carbon Dioxide (22-30) mmol/L Anion Gap mmol/L BUN (9-20) mg/dL Creatinine (0.66-1.25) mg/dL Est GFR (CKD-EPI)AfAm (>60 ml/min/1.73 sqM) Est GFR (CKD-EPI)NonAf (>60 ml/min/1.73 sqM) Glucose (74-99) mg/dL Calcium (8.4-10.2) mg/dL Magnesium (1.6-2.3) mg/dL Total Bilirubin (0.2-1.3) mg/dL AST (17-59) U/L ALT (4-49) U/L Alkaline Phosphatase (38-126) U/L Troponin I 0.028 (0.000-0.034) ng/mL NT-Pro-B Natriuret Pep 2270 pg/mL Total Protein (6.3-8.2) g/dL Albumin (3.5-5.0) g/dL - EKG Data EKG Comments: EKG demonstrates a sinus rhythm with a rate of 91. OR interval 187. QRS 114. QTC of 440. No acute ST segment elevations or depressions concerning for ischemic changes. EKG was interpreted by myself Disposition Clinical Impression: Lower extremity edema, Cellulitis, Systolic CHF, acute on chronic Disposition: ADMITTED IP TO THIS HOSP Is patient prescribed a controlled substance at d/c from ED?: No Time of Disposition: 06:31 Decision to Admit Reason: Admit from EC Decision Date: 07/06/22 Decision Time: 06:31
[2022-07-06] MEDS ORDERED: NALOXONE 0.4 MG/ML 1 ML VIAL IV PRN (06:31)
[2022-07-06] MEDS ORDERED: fentaNYL (PF) 50 MCG/ML 2 ML AMP IVP STA (06:49)
[2022-07-06] MEDS ORDERED: ACETAMINOPHEN TAB 500 MG TAB PO PRN (11:52)
[2022-07-06] MEDS: ONDANSETRON 4 MG/2 ML VIAL IVP PRN (12:03)
[2022-07-06] MEDS ORDERED: DEXTROSE 50% SYRINGE 50 ML IVP PRN ×2 (13:01)
[2022-07-06 13:55] LABS: Glucose,Whole Blood 218 mg/dL (70-110)
[2022-07-06] MEDS: FUROSEMIDE 100 MG in SODIUM CHLORIDE 0.9% 90 ML IV SCH ×2 (14:07→23:15)
[2022-07-06] MEDS: INSULIN ASPART (NovoLOG) 100 UNIT/ML VIAL SQ SCH ×2 (14:08→19:02)
[2022-07-06] MEDS: MORPHINE SULFATE IR 15 MG TABLET PO PRN ×2 (14:08→21:21)
[2022-07-06] MEDS: INSULIN DETEMIR (LEVEMIR) 100 UNIT/ML SYR SQ SCH (14:09)
[2022-07-06] MEDS ORDERED: ACETAMINOPHEN TAB 325 MG TAB PO PRN (15:27)
[2022-07-06] MEDS ORDERED: MELATONIN 3 MG TABLET PO PRN (15:27)
[2022-07-06] MEDS ORDERED: LACTULOSE 20 GM/30 ML CUP PO PRN (15:27)
[2022-07-06] MEDS ORDERED: FUROSEMIDE 10 MG/ML 4 ML VIAL IV SCH (16:00)
[2022-07-06] MEDS: NICOTINE 14MG/24HR PATCH TRANSDERM SCH (16:15)
[2022-07-06] MEDS: METOPROLOL SUCCINATE (ER) 50 MG TAB.ER.24H PO SCH (16:15)
--- NOTE | 2022-07-06 17:16 | P.HPIM ---
History of Present Illness H&P Date: 07/06/22 Chief Complaint: Increasing edema History of presenting complaint: This is a pleasant 52-year-old patient of Dr. Hany Rodríguez. Chronic stable medical conditions include nonischemic CHF EF less than 20%, COPD, diabetes, GERD, hypertension, hyperlipidemia, peripheral neuropathy, obstructive sleep apnea with CPAP, AICD and a pacemaker. Patient lives with his 20-year-old son. Normally uses a cane to get about. did drink heavily in the past and quit 20 years ago. active smoker. Patient presented with increasing edema of lower extremities last few days. Also started becoming short of breath. Has developed blisters on lower extremity. Appetite is fair. Bowel movements are fine. He did have a left foot wound in the past that healed. No cough. Continues to smoke. Short of breath wheezing. Review of systems: GEN.: Tired, EYES: None HEENT: None NECK: None RESPIRATORY: As above CARDIOVASCULAR: As above GASTROINTESTINAL: None GENITOURINARY: None MUSCULOSKELETAL: Joint pains LYMPHATICS: None HEMATOLOGICAL: None PSYCHIATRY: Anxious NEUROLOGICAL: Decreased sensation lower extremity Past medical history to include: COPD, CHF-EF 20%, diabetes, GERD, hyperlipidemia, hypertension,(s) sleep apnea uses CPAP sometimes, ischemic cardiomyopathy, chronic cervical back pain and DJD, diabetic foot wounds, peripheral neuropathy, AICD Social history: Lives with his 20 -year-old son. Does use a cane. Disabled. 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 Been smoking 2 packs a day for most of his life now down to half pack a day. Heavy drinking in the past quit 20 years ago. 4 hits of marijuana nightly. Family history: Reviewed, noncontributory to presentation Physical examination: VITAL SIGNS: 98.5, 97, 20, 133/85, 98% room air GENERAL: BMI 34, reclining in bed awake, short of breath EYES: Pupils equal. Conjunctiva normal. HEENT: External appearance of nose and ears normal, oral cavity grossly normal. NECK: JVD unable to assess; masses not palpable. HEART: First and second heart sounds are normal; edema present. LUNGS: Respiratory rate increased; diminished breath sounds prolonged expiration, wheezing. ABDOMEN: Soft, mild distention nontender, liver spleen not palpable, no masses palpable. PSYCH: Alert and oriented x3; mood and affect anxiousl. MUSCULOSKELETAL:No Clubbing/cyanosis;muscles-grossly intact DERMATOLOGICAL: Ichthyosis especially lower extremity bilateral NEUROLOGICAL: Cranial nerves grossly intact; no facial asymmetry, power and sensation grossly intact. LYMPHATICS: No lymph nodes palpable in the axilla and neck INVESTIGATIONS, reviewed in the clinical context: White count 11.2 hemoglobin 14 platelets 204 sodium 136 potassium 4.4 creatinine 0.85 proBNP 2270 troponin I 0.028 EKG tracing personally reviewed by me-normal sinus rhythm. Rate 91. Chest x-ray film personally reviewed by me-george lindo. Venous prominence August 19: Selective left lower extremity angiogram: Good to fair circulation. 2-D echocardiogram: Moderate concentric LVH. EF less than 20% right ventricle [id number] enlargement. Severe pulmonary hypertension Assessment and plan: -Acute on chronic congestive heart failure exacerbation from nonischemic cardiomyopathy systolic dysfunction EF less than 20%: IV Lasix drip 10 mg an hour. Fluid restriction 2000 mL Strict I's and O's. Toprol. Aldactone AICD. Discharge in Aldactone 25 mg a day. Lasix 80 mg twice a day -Acute COPD exacerbation in a current smoker DuoNeb 4 times a day. Nebulized Pulmicort -Diabetes mellitus type 2 chronically on insulin, uncontrolled with hyperglycemia and hypoglycemia. Levemir 100 units subcu daily at bedtime. Diabetic diet. Accu-Cheks and sliding scale -Hyperlipidemia -Essential hypertension Toprol-XL 50 mg a day -Obstructive sleep apnea sometimes uses CPAP machine -Diabetic peripheral neuropathy -Anxiety Ativan when necessary -DJD Tylenol when necessary -Chronic nicotine dependence patient cigarette smoker Nicotine patch 14 -AICD -Lower extremity significant venous insufficiency Fredy wrap's Lasix drip 10 mg per hour. Follow Accu-Cheks. Resume home medications. DuoNeb. No breast Pulmicort. Nicotine patch. Lovenox. Consult cardiology. Fluid restriction. 2-D echo. Past Medical History Past Medical History: Asthma, Coronary Artery Disease (CAD), Chest Pain / Angina, Heart Failure, COPD, Diabetes Mellitus, GERD/Reflux, Hyperlipidemia, Hypertension, Myocardial Infarction ([place]), Pneumonia, Sleep Apnea/CPAP/BIPAP, Supraventricular Tachycardia (SVT) Additional Past Medical History / Comment(s): Ischemic cardiomyopathy, chronic CHF, SVT, IDDM type II, KAMINI with CPAP occasionally used, chronic cervical/back pain, DJD, diabetic foot wounds x 4 months. Last Myocardial Infarction Date:: 12/11/17 History of Any Multi-Drug Resistant Organisms: MRSA Date of last positivie culture/infection: 03/10/20 MDRO Source:: MRSA TOE Past Surgical History: Adenoidectomy, AICD, Back Surgery, Cholecystectomy, EPS, Heart Catheterization, Pacemaker, Tonsillectomy Additional Past Surgical History / Comment(s): 12/10/17 cardiac cath, previous cardiac cath, 09/02/14 AICD/pacer, EGD/colonoscopy, low back surgery with fusion. Past Anesthesia/Blood Transfusion Reactions: Motion Sickness Additional Past Anesthesia/Blood Transfusion Reaction / Comment(s): Pt states he received blood with back surgery without reaction. Type of Cardiac Device: Permanent Pacemaker, AICD Device Placement Date:: 09-02-14 Past Psychological History: ADD/ADHD, Anxiety Smoking Status: Current every day smoker Past Alcohol Use History: Occasional Past Drug Use History: Marijuana - Past Family History Father Additional Family Medical History / Comment(s): Pt has not kept in close contact with his father for many yrs. Father was an alcoholic and pt believes he has from cirrhosis of the liver. Mother History Unknown: Yes Additional Family Medical History / Comment(s): Pt is not in contact with his mother or his father who he has heard had . Medications and Allergies Home Medications Medication Instructions Recorded Confirmed Type Metoprolol Succinate (ER) [Toprol 100 mg PO DAILY #30 tab 09/01/21 07/06/22 Rx Xl] Albuterol Inhaler [Ventolin Hfa 2 puff INHALATION RT-QID PRN 07/06/22 07/06/22 History Inhaler] Furosemide [Lasix] 20 mg PO QID 07/06/22 07/06/22 History INSULIN LISPRO (humaLOG) [humaLOG] 5 - 10 unit SQ DAILY 07/06/22 07/06/22 History Insulin Glargine,Hum.rec.anlog 100 units SQ BID 07/06/22 07/06/22 History [Toujeo Solostar] Morphine Sulfate Ir [MSIR] 30 mg PO QID PRN 07/06/22 07/06/22 History Allergies Allergy/AdvReac Type Severity Reaction Status Date / Time azithromycin Allergy Anaphylaxis Verified 07/06/22 08:52 gemfibrozil [From Lopid] Allergy Rash/Hives Verified 07/06/22 08:52 Physical Exam Vitals: Vital Signs Temp Pulse Resp BP Pulse Ox 07/06/22 07:45 97 20 133/85 98 07/06/22 00:36 98.5 F 95 18 109/72 95 Intake and Output 07/05/22 07/06/22 07/06/22 22:59 06:59 14:59 Other: Weight 104.326 kg Results CBC & Chem 7: 07/06/22 04:39 07/06/22 04:39 Labs: Abnormal Lab Results - Last 24 Hours (Table) 07/06/22 07/06/22 Range/Units 04:39 04:39 WBC 11.2 H (3.8-10.6) k/uL Sodium 136 L (137-145) mmol/L BUN 23 H (9-20) mg/dL Glucose 146 H (74-99) mg/dL
[2022-07-06] MEDS: IPRATROPIUM-ALBUTEROL 3 ML NEB INHALATION SCH ×2 (17:53→19:23)
[2022-07-06] MEDS: SPIRONOLACTONE 25 MG TAB PO SCH (18:39)
[2022-07-06] MEDS: ENOXAPARIN 40 MG/0.4 ML SYRINGE SQ SCH (18:39)
[2022-07-06 19:03] LABS: Glucose,Whole Blood 128 mg/dL (70-110)
[2022-07-06] MEDS: BUDESONIDE 1 MG/2 ML NEBU INHALATION SCH (19:23)
[2022-07-07] MEDS: MORPHINE SULFATE IR 15 MG TABLET PO PRN ×3 (03:23→20:24)
[2022-07-07] MEDS: LORazepam 0.5 MG TAB PO PRN ×3 (03:27→20:24)
[2022-07-07] MEDS: BUDESONIDE 1 MG/2 ML NEBU INHALATION SCH ×2 (08:53→20:33)
[2022-07-07] MEDS: IPRATROPIUM-ALBUTEROL 3 ML NEB INHALATION SCH ×4 (08:54→20:32)
[2022-07-07 09:23] LABS: Basophils # (A) 0.14 X 10*3/uL (0.00-0.10); Basophils % (A) 1.5 %; Eosinophils # (A) 0.62 X 10*3/uL (0.04-0.35); Eosinophils % (A) 6.6 %; HCT 41.4 % (39.6-50.0); HGB 12.6 g/dL (13.0-17.0); Immature Grans, Automated 0.3 %; Lymphocytes # (A) 2.27 X 10*3/uL (0.90-5.00); Lymphocytes % (A) 24.2 %; MCH 28.5 pg (27.0-32.0); MCHC 30.4 g/dL (32.0-37.0); MCV 93.7 fL (80.0-97.0); Mean Platelet Volume 12.3 fL (9.5-12.2); Monocytes % (A) 9.6 %; NRBC Per 100 WBC 0 /100 WBCS (0.0-0.0); Neutrophils # (A) 5.42 X 10*3/uL (1.80-7.70); Neutrophils % (A) 57.8 %; Platelet Count 204 X 10*3/uL (140-440); RBC 4.42 X 10*6/uL (4.40-5.60); WBC 9.38 X 10*3/uL (4.50-10.00)
--- NOTE | 2022-07-07 09:25 | P.CRDCN ---
History of Present Illness Consult date: 07/07/22 Chief complaint: Severe bilateral lower extremity edema History of present illness: The patient is a pleasant 62-year-old gentleman with a past medical history significant for mild nonobstructive coronary artery disease as well as severe nonischemic cardiomyopathy status post AICD as well as pulmonary hypertension and hypertension and dyslipidemia presented to the hospital complaining of shortness of breath and bilateral lower extremities edema. For the last 2 weeks he has been experiencing progressive bilateral lower extremity edema and also increasing in the shortness of breath but no symptoms of chest pain or chest discomfort and no dizziness or lightheadedness and no feeling of heart racing or fluttering. He stated that he has been compliant with his medications as an outpatient and he was on diuretics as an outpatient. He was also on beta leah and he was not on any Fredy inhibitor or ARB. He stated that he gained about 20 pounds. When he presented to the hospital the patient was heart failure with a predominantly right heart failure with severe bilateral lower extremity edema. The chest x-ray showed no acute abnormalities and the proBNP came in to be elevated. The EKG showed sinus rhythm with no significant ST or T-wave abnormalities. The last echocardiogram from 2021 showed severe cardiomyopathy with EF around 20% with global hypokinesia and severe pulmonary hypertension and no significant valvular abnormalities noted on that exam. Past Medical History Past Medical History: Asthma, Coronary Artery Disease (CAD), Chest Pain / Angina, Heart Failure, COPD, Diabetes Mellitus, GERD/Reflux, Hyperlipidemia, Hypertension, Myocardial Infarction (AR), Pneumonia, Sleep Apnea/CPAP/BIPAP, Supraventricular Tachycardia (SVT) Additional Past Medical History / Comment(s): Ischemic cardiomyopathy, chronic CHF, SVT, IDDM type II, KAMINI with CPAP occasionally used, chronic cervical/back pain, DJD, diabetic foot wounds x 4 months. Last Myocardial Infarction Date:: 12/11/17 History of Any Multi-Drug Resistant Organisms: MRSA Date of last positivie culture/infection: 03/10/20 MDRO Source:: MRSA TOE Past Surgical History: Adenoidectomy, AICD, Back Surgery, Cholecystectomy, EPS, Heart Catheterization, Pacemaker, Tonsillectomy Additional Past Surgical History / Comment(s): 12/10/17 cardiac cath, previous cardiac cath, 09/02/14 AICD/pacer, EGD/colonoscopy, low back surgery with fusion. Past Anesthesia/Blood Transfusion Reactions: Motion Sickness Additional Past Anesthesia/Blood Transfusion Reaction / Comment(s): Pt states he received blood with back surgery without reaction. Type of Cardiac Device: Permanent Pacemaker, AICD Device Placement Date:: 09-02-14 Past Psychological History: ADD/ADHD, Anxiety Additional Psychological History / Comment(s): Pt lives with his old son. There are cats in the home. Pt is very independent. He states he would like a walker d/t his L foot wound. He drives. Pt states he has ADHD. Pt is disabled. He has a glucometer and nebulizer. The patient worked in the past building [employer] and [employer]. Smoking Status: Current every day smoker Past Alcohol Use History: Occasional Additional Past Alcohol Use History / Comment(s): Pt started smoking in 1984 . Currently smokig 1/2 pack daily. Pt states he was a heavy drinker in the past but quit drinking 30 yrs ago. Past Drug Use History: Marijuana Additional Drug Use History / Comment(s): Occasional marijuana use. - Past Family History Father Additional Family Medical History / Comment(s): Pt has not kept in close contact with his father for many yrs. Father was an alcoholic and pt believes he has from cirrhosis of the liver. Mother History Unknown: Yes Additional Family Medical History / Comment(s): Pt is not in contact with his mother or his father who he has heard had . Medications and Allergies Home Medications Medication Instructions Recorded Confirmed Type Metoprolol Succinate (ER) [Toprol 100 mg PO DAILY #30 tab 09/01/21 07/06/22 Rx Xl] Albuterol Inhaler [Ventolin Hfa 2 puff INHALATION RT-QID PRN 07/06/22 07/06/22 History Inhaler] Furosemide [Lasix] 20 mg PO QID 07/06/22 07/06/22 History INSULIN LISPRO (humaLOG) [humaLOG] 5 - 10 unit SQ DAILY 07/06/22 07/06/22 History Insulin Glargine,Hum.rec.anlog 100 units SQ BID 07/06/22 07/06/22 History [Tounenoo Solostar] Morphine Sulfate Ir [MSIR] 30 mg PO QID PRN 07/06/22 07/06/22 History Allergies Allergy/AdvReac Type Severity Reaction Status Date / Time azithromycin Allergy Anaphylaxis Verified 07/06/22 08:52 gemfibrozil [From Lopid] Allergy Rash/Hives Verified 07/06/22 08:52 Physical Exam Vitals: Vital Signs Temp Pulse Pulse Resp BP BP Pulse Ox 07/07/22 08:54 80 07/07/22 06:06 98.5 F 81 16 104/73 96 07/06/22 22:48 98.5 F 18 07/06/22 21:02 98.3 F 82 16 138/84 97 07/06/22 20:10 98.2 F 84 16 110/75 99 07/06/22 19:24 72 07/06/22 18:23 98.1 F 89 18 137/106 98 07/06/22 18:05 75 07/06/22 17:55 72 07/06/22 14:06 83 18 120/76 98 Intake and Output 07/06/22 07/07/22 07/07/22 22:59 06:59 14:59 Intake Total 1030 Output Total 500 Balance 1030 -500 Intake: Oral 1030 Output: Urine 500 Other: Weight 104.326 kg 104.33 kg - Constitutional General appearance: no acute distress - Respiratory Respiratory: bilateral: diminished - Cardiovascular Rhythm: regular Heart sounds: normal: S1, S2 Abnormal Heart Sounds: systolic murmur Results 07/06/22 04:39 07/06/22 04:39 Current Medications Generic Name Dose Route Start Last Admin Trade Name Freq PRN Reason Stop Dose Admin Acetaminophen 650 mg 07/06/22 15:27 07/06/22 18:39 Acetaminophen Tab 325 Mg Tab PO 650 mg Q6HR PRN Administration Mild Pain or Fever > 100.5 Albuterol/Ipratropium 3 ml 07/06/22 16:00 07/07/22 08:54 Ipratropium-Albuterol 3 Ml Neb INHALATION 3 ml RT-QID LAN Administration Budesonide 1 mg 07/06/22 20:00 07/07/22 08:53 Budesonide 1 Mg/2 Ml Nebu INHALATION 1 mg RT-BID LAN Administration Calcium Carbonate/Glycine 1,000 mg 07/06/22 15:27 Calcium Carbonate 500 Mg Chewable PO Q4HR PRN Dyspepsia Dextrose/Water 25 ml 07/06/22 13:01 Dextrose 50% Syringe 50 Ml IVP PER PROTOCOL PRN Hypoglycemia Protocol Dextrose/Water 50 ml 07/06/22 13:01 Dextrose 50% Syringe 50 Ml IVP PER PROTOCOL PRN Hypoglycemia Protocol Enoxaparin Sodium 40 mg 07/06/22 17:15 07/06/22 18:39 Enoxaparin 40 Mg/0.4 Ml Syringe SQ 40 mg DAILY LAN Administration Furosemide 80 mg 07/07/22 21:00 Furosemide 10 Mg/Ml 10 Ml Vial IV Q12HR [facility] Insulin Aspart 0 unit 07/06/22 13:15 07/06/22 19:02 Insulin Aspart (Novolog) 100 Unit/Ml Vial SQ Not Given AC-TID [facility] Protocol Insulin Detemir 100 unit 07/06/22 13:15 07/06/22 14:09 Insulin Detemir (Levemir) 100 Unit/Ml Syr SQ 100 unit DAILY LAN Administration Lactulose 20 gm 07/06/22 15:27 Lactulose 20 Gm/30 Ml Cup PO DAILY PRN Constipation Lorazepam 0.5 mg 07/06/22 15:27 07/07/22 03:27 Lorazepam 0.5 Mg Tab PO 0.5 mg Q6HR PRN Administration Anxiety Melatonin 3 mg 07/06/22 15:27 Melatonin 3 Mg Tablet PO HS PRN Insomnia Metoprolol Succinate 50 mg 07/06/22 13:15 07/06/22 16:15 Metoprolol Succinate (Er) 50 Mg Tab.Er.24h PO 50 mg DAILY LAN Administration Morphine Sulfate 30 mg 07/06/22 13:01 07/07/22 03:23 Morphine Sulfate Ir 15 Mg Tablet PO 30 mg QID PRN Administration Pain 3-10 Naloxone HCl 0.2 mg 07/06/22 06:31 Naloxone 0.4 Mg/Ml 1 Ml Vial IV Q2M PRN Opioid Reversal Nicotine 1 patch 07/06/22 15:30 07/06/22 16:15 Nicotine 14mg/24hr Patch TRANSDERM 1 patch DAILY LAN Administration Ondansetron HCl 4 mg 07/06/22 11:52 07/06/22 12:03 Ondansetron 4 Mg/2 Ml Vial IVP 4 mg Q6HR PRN Administration Nausea And Vomiting Spironolactone 25 mg 07/06/22 17:15 07/06/22 18:39 Spironolactone 25 Mg Tab PO 25 mg DAILY LAN Administration Intake and Output 07/06/22 07/07/22 07/07/22 22:59 06:59 14:59 Intake Total 1030 Output Total 500 Balance 1030 -500 Intake: Oral 1030 Output: Urine 500 Other: Weight 104.326 kg 104.33 kg 07/06/22 04:39 07/06/22 04:39 Assessment and Plan Assessment: Assessment Heart failure exacerbation secondary to heart failure with reduced ejection fraction with evidence of biventricular failure right more than left Severe nonischemic cardiomyopathy with an EF of 20% based on echo about a year ago Mild nonobstructive coronary artery disease Multiple comorbid conditions Plan Start the patient on Lasix 80 mg IV twice a day Continue the current medical regimen Start the patient on Entresto Monitor the blood pressure Follow-up with the patient
[2022-07-07] MEDS: FUROSEMIDE 100 MG in SODIUM CHLORIDE 0.9% 90 ML IV SCH (09:31)
[2022-07-07 09:35] LABS: Glucose,Whole Blood 103 mg/dL (70-110)
[2022-07-07] MEDS: INSULIN ASPART (NovoLOG) 100 UNIT/ML VIAL SQ SCH ×3 (09:49→17:59)
[2022-07-07] MEDS: INSULIN DETEMIR (LEVEMIR) 100 UNIT/ML SYR SQ SCH (10:01)
[2022-07-07] MEDS: SPIRONOLACTONE 25 MG TAB PO SCH (10:01)
[2022-07-07] MEDS: METOPROLOL SUCCINATE (ER) 50 MG TAB.ER.24H PO SCH (10:01)
[2022-07-07] MEDS: NICOTINE 14MG/24HR PATCH TRANSDERM SCH (10:01)
[2022-07-07] MEDS: ENOXAPARIN 40 MG/0.4 ML SYRINGE SQ SCH (10:01)
[2022-07-07 10:34] LABS: African American GFR (CKD) 63.8 (60.0-200.0); Anion Gap 9.9 mmol/L (10.00-18.00); BUN/Creat Ratio 19.03 Ratio (12.00-20.00); Blood Urea Nitrogen 27.4 mg/dL (9.0-27.0); Calcium 9.2 mg/dL (8.7-10.3); Carbon Dioxide 30.8 mmol/L (20.0-27.5); Non-African American GFR(CKD) 55.1 (60.0-200.0); Potassium 4.3 mmol/L (3.5-5.5)
[2022-07-07] MEDS ORDERED: FUROSEMIDE 10 MG/ML 10 ML VIAL IV STA (11:02)
[2022-07-07 13:02] LABS: Glucose,Whole Blood 162 mg/dL (70-110)
[2022-07-07] MEDS: ONDANSETRON 4 MG/2 ML VIAL IVP PRN (13:09)
--- NOTE | 2022-07-07 14:33 | P.PN ---
Progress Note - Text Progress Note Date: 07/07/22 Chief Complaint: Increasing edema History of presenting complaint: This is a pleasant 52-year-old patient of Dr. Hany Rodríguez. Chronic stable medical conditions include nonischemic CHF EF less than 20%, COPD, diabetes, GERD, hypertension, hyperlipidemia, peripheral neuropathy, obstructive sleep apnea with CPAP, AICD and a pacemaker. Patient lives with his 20-year-old son. Normally uses a cane to get about. did drink heavily in the past and quit 20 years ago. active smoker. Patient presented with increasing edema of lower extremities last few days. Also started becoming short of breath. Has developed blisters on lower extremity. Appetite is fair. Bowel movements are fine. He did have a left foot wound in the past that healed. No cough. Continues to smoke. Short of breath wheezing. Admitted with CHF exacerbation. COPD exacerbation. Started on Lasix drip. 07/07/2022: Edema, short of breath remains. Seen by cardiology. Change to IV Lasix 80 mg every 12. Follow I's and O's. In bed. Entresto added by cardiology Active Medications Acetaminophen (Acetaminophen Tab 325 Mg Tab) 650 mg PO Q6HR PRN PRN Reason: Mild Pain or Fever > 100.5 Last Admin: 07/06/22 18:39 Dose: 650 mg Albuterol/Ipratropium (Ipratropium-Albuterol 3 Ml Neb) 3 ml INHALATION RT-QID [facility] Last Admin: 07/07/22 11:49 Dose: 3 ml Budesonide (Budesonide 1 Mg/2 Ml Nebu) 1 mg INHALATION RT-BID [facility] Last Admin: 07/07/22 08:53 Dose: 1 mg Calcium Carbonate/Glycine (Calcium Carbonate 500 Mg Chewable) 1,000 mg PO Q4HR PRN PRN Reason: Dyspepsia Dextrose/Water (Dextrose 50% Syringe 50 Ml) 25 ml IVP PER PROTOCOL PRN; Protocol PRN Reason: Hypoglycemia Dextrose/Water (Dextrose 50% Syringe 50 Ml) 50 ml IVP PER PROTOCOL PRN; Protocol PRN Reason: Hypoglycemia Enoxaparin Sodium (Enoxaparin 40 Mg/0.4 Ml Syringe) 40 mg SQ DAILY [facility] Last Admin: 07/07/22 10:01 Dose: 40 mg Furosemide (Furosemide 10 Mg/Ml 10 Ml Vial) 80 mg IV Q12HR [facility] Insulin Aspart (Insulin Aspart (Novolog) 100 Unit/Ml Vial) 0 unit SQ AC-TID [facility]; Protocol Last Admin: 07/07/22 13:38 Dose: 4 unit Insulin Detemir (Insulin Detemir (Levemir) 100 Unit/Ml Syr) 100 unit SQ DAILY [facility] Last Admin: 07/07/22 10:01 Dose: 100 unit Lactulose (Lactulose 20 Gm/30 Ml Cup) 20 gm PO DAILY PRN PRN Reason: Constipation Lorazepam (Lorazepam 0.5 Mg Tab) 0.5 mg PO Q6HR PRN PRN Reason: Anxiety Last Admin: 07/07/22 03:27 Dose: 0.5 mg Melatonin (Melatonin 3 Mg Tablet) 3 mg PO HS PRN PRN Reason: Insomnia Metoprolol Succinate (Metoprolol Succinate (Er) 50 Mg Tab.Er.24h) 50 mg PO DAILY [facility] Last Admin: 07/07/22 10:01 Dose: 50 mg Morphine Sulfate (Morphine Sulfate Ir 15 Mg Tablet) 30 mg PO QID PRN PRN Reason: Pain 3-10 Last Admin: 07/07/22 10:09 Dose: 30 mg Naloxone HCl (Naloxone 0.4 Mg/Ml 1 Ml Vial) 0.2 mg IV Q2M PRN PRN Reason: Opioid Reversal Nicotine (Nicotine 14mg/24hr Patch) 1 patch TRANSDERM DAILY [facility] Last Admin: 07/07/22 10:01 Dose: 1 patch Ondansetron HCl (Ondansetron 4 Mg/2 Ml Vial) 4 mg IVP Q6HR PRN PRN Reason: Nausea And Vomiting Last Admin: 07/07/22 13:09 Dose: 4 mg Sacubitril/Valsartan (Sacubitril/Valsartan 24 Mg-26 Mg Tablet) 1 each PO BID [facility] Spironolactone (Spironolactone 25 Mg Tab) 25 mg PO DAILY [facility] Last Admin: 07/07/22 10:01 Dose: 25 mg Past medical history to include: COPD, CHF-EF 20%, diabetes, GERD, hyperlipidemia, hypertension,(s) sleep apnea uses CPAP sometimes, ischemic cardiomyopathy, chronic cervical back pain and DJD, diabetic foot wounds, peripheral neuropathy, AICD Social history: Lives with his 20 -year-old son. Does use a cane. Disabled. 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 Been smoking 2 packs a day for most of his life now down to half pack a day. Heavy drinking in the past quit 20 years ago. 4 hits of marijuana nightly. Family history: Reviewed, noncontributory to presentation Physical examination: VITAL SIGNS: 98.5, 94, 18, 112 with 73, 96% room air GENERAL: reclining in bed awake, short of breath EYES: Pupils equal. Conjunctiva normal. HEENT: External appearance of nose and ears normal, oral cavity grossly normal. NECK: JVD unable to assess; masses not palpable. HEART: First and second heart sounds are normal; edema present. LUNGS: Respiratory rate increased; diminished breath sounds prolonged expiration, wheezing. ABDOMEN: Soft, mild distention nontender, liver spleen not palpable, no masses palpable. PSYCH: Alert and oriented x3; mood and affect anxiousl. MUSCULOSKELETAL:No Clubbing/cyanosis;muscles-grossly intact DERMATOLOGICAL: Ichthyosis especially lower extremity bilateral NEUROLOGICAL: Cranial nerves grossly intact; no facial asymmetry, power and sensation grossly intact. LYMPHATICS: No lymph nodes palpable in the axilla and neck INVESTIGATIONS, reviewed in the clinical context: White count 11.2 hemoglobin 14 platelets 204 sodium 136 potassium 4.4 creatinine 0.85 proBNP 2270 troponin I 0.028 EKG tracing personally reviewed by me-normal sinus rhythm. Rate 91. Chest x-ray film personally reviewed by me-george lindo. Venous prominence August 19: Selective left lower extremity angiogram: Good to fair circulation. 2-D echocardiogram: Moderate concentric LVH. EF less than 20% right ventricle [id number] enlargement. Severe pulmonary hypertension Assessment and plan: -Acute on chronic congestive heart failure exacerbation from nonischemic cardiomyopathy systolic dysfunction EF less than 20%: IV Lasix 80 mg every 12. Fluid restriction 2000 mL Strict I's and O's. Toprol. Aldactone AICD. Entresto added by cardiology today. -Acute COPD exacerbation in a current smoker DuoNeb 4 times a day. Nebulized Pulmicort -Diabetes mellitus type 2 chronically on insulin, uncontrolled with hyperglycemia and hypoglycemia. Levemir 100 units subcu daily at bedtime. Diabetic diet. Accu-Cheks and sliding scale -Hyperlipidemia -Essential hypertension Toprol-XL 50 mg a day -Obstructive sleep apnea sometimes uses CPAP machine -Diabetic peripheral neuropathy -Anxiety Ativan when necessary -DJD Tylenol when necessary -Chronic nicotine dependence patient cigarette smoker Nicotine patch 14 -AICD -Lower extremity significant venous insufficiency Fredy wrap's IV Lasix 80 mg every 12. DuoNeb. Pulmicort. Other medications to continue. Follow labs. Entresto added by cardiology.
[2022-07-07] MEDS: CALCIUM CARBONATE 500 MG CHEWABLE PO PRN (16:36)
[2022-07-07 17:06] LABS: Glucose,Whole Blood 95 mg/dL (70-110)
[2022-07-07 18:29] LABS: Glucose,Whole Blood 72 mg/dL (70-110)
--- NOTE | 2022-07-07 20:03 | XR ---
EXAMINATION TYPE: XR abdomen acute w cxr DATE OF EXAM: 07/07/2022 6:18 PM INDICATION: Patient age:Male; 52 years old; Reason for study: pain,; PHH. COMPARISON: Chest x-ray 07/06/2022 TECHNIQUE: A radiograph of the chest and 2 views of the abdomen. FINDINGS: No focal airspace consolidation. Mild pulmonary vascular congestion. Mild cardiomegaly. Sin gle lead cardiac defibrillator in place. The bowel gas pattern is nonspecific without dilated loops o f small or large bowel. There is no evidence for organomegaly or pneumoperitoneum. The osseous struc tures are intact. Surgical clips in the right upper quadrant. Fecal material and gas are demonstrate d throughout the colon and rectum. IMPRESSION: 1. Cardiomegaly with mild pulmonary vascular congestion. 2. Nonspecific bowel gas pattern without radiographic evidence for acute process.
[2022-07-07] MEDS: SACUBITRIL/VALSARTAN 24 MG-26 MG TABLET PO SCH (20:24)
[2022-07-07] MEDS: FUROSEMIDE 10 MG/ML 10 ML VIAL IV SCH (20:26)
[2022-07-07 22:08] LABS: Glucose,Whole Blood 98 mg/dL (70-110)
[2022-07-08] MEDS: MORPHINE SULFATE IR 15 MG TABLET PO PRN ×2 (04:53→15:38)
[2022-07-08] MEDS: LORazepam 0.5 MG TAB PO PRN ×2 (04:53→15:38)
[2022-07-08 06:33] LABS: African American GFR (CKD) 74 (>60 ml/min/1.73 sqM); Anion Gap 8 mmol/L; Blood Urea Nitrogen 33 mg/dL (9-20); Calcium 8.7 mg/dL (8.4-10.2); Carbon Dioxide 27 mmol/L (22-30); Chloride 101 mmol/L (98-107); Glucose 122 mg/dL (74-99); Non-African American GFR(CKD) 64 (>60 ml/min/1.73 sqM); Potassium 4.1 mmol/L (3.5-5.1); Sodium 136 mmol/L (137-145)
[2022-07-08 07:40] LABS: Glucose,Whole Blood 111 mg/dL (70-110)
[2022-07-08] MEDS: INSULIN ASPART (NovoLOG) 100 UNIT/ML VIAL SQ SCH ×3 (07:50→17:59)
[2022-07-08] MEDS: IPRATROPIUM-ALBUTEROL 3 ML NEB INHALATION SCH ×4 (08:09→20:02)
[2022-07-08] MEDS: BUDESONIDE 1 MG/2 ML NEBU INHALATION SCH ×2 (08:09→20:02)
[2022-07-08] MEDS: NICOTINE 21MG/24HR PATCH TRANSDERM SCH (09:30)
[2022-07-08] MEDS: ENOXAPARIN 40 MG/0.4 ML SYRINGE SQ SCH (09:30)
[2022-07-08] MEDS: SACUBITRIL/VALSARTAN 24 MG-26 MG TABLET PO SCH ×2 (09:30→21:32)
[2022-07-08] MEDS: METOPROLOL SUCCINATE (ER) 50 MG TAB.ER.24H PO SCH (09:30)
[2022-07-08] MEDS: INSULIN DETEMIR (LEVEMIR) 100 UNIT/ML SYR SQ SCH (09:30)
[2022-07-08] MEDS: SPIRONOLACTONE 25 MG TAB PO SCH (09:30)
[2022-07-08] MEDS: FUROSEMIDE 10 MG/ML 10 ML VIAL IV SCH ×2 (09:45→21:32)
--- NOTE | 2022-07-08 09:46 | P.PN ---
Subjective Progress Note Date: 07/08/22 Principal diagnosis: Heart failure with reduced ejection fraction The patient is a pleasant 62-year-old gentleman with a past medical history significant for mild nonobstructive coronary artery disease as well as severe nonischemic cardiomyopathy status post AICD as well as pulmonary hypertension and hypertension and dyslipidemia presented to the hospital complaining of shortness of breath and bilateral lower extremities edema. For the last 2 weeks he has been experiencing progressive bilateral lower extremity edema and also increasing in the shortness of breath but no symptoms of chest pain or chest discomfort and no dizziness or lightheadedness and no feeling of heart racing or fluttering. He stated that he has been compliant with his medications as an outpatient and he was on diuretics as an outpatient. He was also on beta leah and he was not on any Fredy inhibitor or ARB. He stated that he gained about 20 pounds. When he presented to the hospital the patient was heart failure with a predominantly right heart failure with severe bilateral lower extremity edema. The chest x-ray showed no acute abnormalities and the proBNP came in to be elevated. The EKG showed sinus rhythm with no significant ST or T-wave abnormalities. The last echocardiogram from 2021 showed severe cardiomyopathy with EF around 20% with global hypokinesia and severe pulmonary h ypertension and no significant valvular abnormalities noted on that exam. July [id number] The patient was seen and evaluated this morning. He still short of breath. He continues to have severe bilateral lower extremity edema. On examination he continues to have bilateral rhonchi as well. He has been tolerating the Entresto which was started yesterday. The pressure has been within normal limits. He has been diuresing very well. Creatinine continues to be stable. At this point I would continue the current medical regimen including the current dose of Lasix IV and continue monitor the kidney function and electrolytes and follow-up with the patient Objective - Vital Signs Vital signs: Vital Signs Temp 98.5 F 07/08/22 05:15 Pulse 86 07/08/22 08:19 Resp 16 07/08/22 05:15 BP 106/73 07/08/22 05:15 Pulse Ox 95 07/08/22 05:15 FiO2 Intake & Output 07/07/22 07/08/22 07/08/22 18:59 06:59 18:59 Intake Total 240 830 Output Total 200 1700 Balance 40 -870 Weight 114.3 kg Intake: Oral 240 830 Output: Urine 200 1700 Other: Voiding Method Toilet Urinal # Bowel Movements 1 - Constitutional General appearance: Present: no acute distress - Respiratory Respiratory: bilateral: diminished, rales - Cardiovascular Rhythm: regular Heart sounds: normal: S1, S2 Abnormal Heart Sounds: Present: systolic murmur - Labs CBC & Chem 7: 07/07/22 05:29 07/08/22 05:46 Labs: Abnormal Lab Results - Last 24 Hours (Table) 07/07/22 07/07/22 07/08/22 Range/Units 05:29 13:01 05:46 Sodium 136 L (137-145) mmol/L Carbon Dioxide 30.8 H (20.0-27.5) mmol/L Anion Gap 9.90 L (10.00-18.00) mmol/L BUN 27.4 H 33 H (9.0-27.0) mg/dL Creatinine 1.28 H (0.66-1.25) mg/dL Est GFR (CKD-EPI)NonAf 55.1 L (60.0-200.0) Glucose 122 H (74-99) mg/dL POC Glucose (mg/dL) 162 H (70-110) mg/dL 07/08/22 Range/Units 07:39 Sodium (137-145) mmol/L Carbon Dioxide (20.0-27.5) mmol/L Anion Gap (10.00-18.00) mmol/L BUN (9.0-27.0) mg/dL Creatinine (0.66-1.25) mg/dL Est GFR (CKD-EPI)NonAf (60.0-200.0) Glucose (74-99) mg/dL POC Glucose (mg/dL) 111 H (70-110) mg/dL Microbiology - Last 24 Hours (Table) 07/06/22 07:10 Blood Culture - Preliminary Blood No Growth after 48 hours 07/06/22 07:22 Blood Culture - Preliminary Blood No Growth after 48 hours Assessment and Plan Assessment: Assessment Heart failure exacerbation secondary to heart failure with reduced ejection fraction with evidence of biventricular failure right more than left Severe nonischemic cardiomyopathy with an EF of 20% based on echo about a year ago Mild nonobstructive coronary artery disease Multiple comorbid conditions Plan Continue the current medical regimen Continue Lasix IV Continue monitor the kidney function and electrolytes Follow-up with the patient
[2022-07-08] MEDS: CALCIUM CARBONATE 500 MG CHEWABLE PO PRN ×2 (09:49→16:32)
--- NOTE | 2022-07-08 11:26 | P.GSCN ---
History of Present Illness Consult date: 07/08/22 Reason for Consult: Abdominal pain, GERD History of present illness: This a 52-year-old male who states he has complaints of abdominal pain yes terday. Patient states he was very gassy after starting he states pain improved. He also has come long-standing problems with reflux esophagitis. He states he's had GERD for many years. Past Medical History Past Medical History: Asthma, Coronary Artery Disease (CAD), Chest Pain / Angina, Heart Failure, COPD, Diabetes Mellitus, GERD/Reflux, Hyperlipidemia, Hypertension, Myocardial Infarction (MD), Pneumonia, Sleep Apnea/CPAP/BIPAP, Supraventricular Tachycardia (SVT) Additional Past Medical History / Comment(s): Ischemic cardiomyopathy, chronic CHF, SVT, IDDM type II, KAMINI with CPAP occasionally used, chronic cervical/back pain, DJD, diabetic foot wounds x 4 months. Last Myocardial Infarction Date:: 12/11/17 History of Any Multi-Drug Resistant Organisms: MRSA Year Discovered:: 03/10/20 MDRO Source:: MRSA TOE Past Surgical History: Adenoidectomy, AICD, Back Surgery, Cholecystectomy, EPS, Heart Catheterization, Pacemaker, Tonsillectomy Additional Past Surgical History / Comment(s): 12/10/17 cardiac cath, previous cardiac cath, 09/02/14 AICD/pacer, EGD/colonoscopy, low back surgery with fusion. Past Anesthesia/Blood Transfusion Reactions: Motion Sickness Additional Past Anesthesia/Blood Transfusion Reaction / Comm: Pt states he received blood with back surgery without reaction. Type of Cardiac Device: Permanent Pacemaker, AICD Device Placement Date:: 09-02-14 Past Psychological History: ADD/ADHD, Anxiety Additional Psychological History / Comment(s): Pt lives with his old son. There are cats in the home. Pt is very independent. He states he would like a walker d/t his L foot wound. He drives. Pt states he has ADHD. Pt is disabled. He has a glucometer and nebulizer. The patient worked in the past building [employer] and [email or web address]. Smoking Status: Current every day smoker Past Alcohol Use History: Occasional Additional Past Alcohol Use History / Comment(s): Pt started smoking in 1984 . Currently smokig 1/2 pack daily. Pt states he was a heavy drinker in the past but quit drinking 30 yrs ago. Past Drug Use History: Marijuana Additional Drug Use History / Comment(s): Occasional marijuana use. - Past Family History Father Additional Family Medical History / Comment(s): Pt has not kept in close contact with his father for many yrs. Father was an alcoholic and pt believes he has from cirrhosis of the liver. Mother History Unknown: Yes Additional Family Medical History / Comment(s): Pt is not in contact with his mother or his father who he has heard had . Medications and Allergies Home Medications Medication Instructions Recorded Confirmed Type Metoprolol Succinate (ER) [Toprol 100 mg PO DAILY #30 tab 09/01/21 07/06/22 Rx Xl] Albuterol Inhaler [Ventolin Hfa 2 puff INHALATION RT-QID PRN 07/06/22 07/06/22 History Inhaler] Furosemide [Lasix] 20 mg PO QID 07/06/22 07/06/22 History INSULIN LISPRO (humaLOG) [humaLOG] 5 - 10 unit SQ DAILY 07/06/22 07/06/22 History Insulin Glargine,Hum.rec.anlog 100 units SQ BID 07/06/22 07/06/22 History [Tounenoo Solostar] Morphine Sulfate Ir [MSIR] 30 mg PO QID PRN 07/06/22 07/06/22 History Allergies Allergy/AdvReac Type Severity Reaction Status Date / Time azithromycin Allergy Anaphylaxis Verified 07/06/22 08:52 gemfibrozil [From Lopid] Allergy Rash/Hives Verified 07/06/22 08:52 Surgical - Exam Vital Signs Temp Pulse Resp BP Pulse Ox 98.5 F 95 18 109/72 95 07/06/22 00:36 07/06/22 00:36 07/06/22 00:36 07/06/22 00:36 07/06/22 00:36 - General well developed, well nourished, no distress - Eyes PERRL - ENT normal pinna - Respiratory normal expansion - Cardiovascular Rhythm: regular - Abdomen Abdomen: soft, non tender Results - Labs 07/07/22 05:29 07/08/22 05:46 Abnormal Lab Results - Last 24 Hours (Table) 07/07/22 07/08/22 07/08/22 Range/Units 13:01 05:46 07:39 Sodium 136 L (137-145) mmol/L BUN 33 H (9-20) mg/dL Creatinine 1.28 H (0.66-1.25) mg/dL Glucose 122 H (74-99) mg/dL POC Glucose (mg/dL) 162 H 111 H (70-110) mg/dL Microbiology - Last 24 Hours (Table) 07/06/22 07:10 Blood Culture - Preliminary Blood No Growth after 48 hours 07/06/22 07:22 Blood Culture - Preliminary Blood No Growth after 48 hours Diabetes panel 07/08/22 Range/Units 05:46 Sodium 136 L (137-145) mmol/L Potassium 4.1 (3.5-5.1) mmol/L Chloride 101 (98-107) mmol/L Carbon Dioxide 27 (22-30) mmol/L BUN 33 H (9-20) mg/dL Creatinine 1.28 H (0.66-1.25) mg/dL Glucose 122 H (74-99) mg/dL Calcium 8.7 (8.4-10.2) mg/dL Calcium panel 07/08/22 Range/Units 05:46 Calcium 8.7 (8.4-10.2) mg/dL Pituitary panel 07/08/22 Range/Units 05:46 Sodium 136 L (137-145) mmol/L Potassium 4.1 (3.5-5.1) mmol/L Chloride 101 (98-107) mmol/L Carbon Dioxide 27 (22-30) mmol/L BUN 33 H (9-20) mg/dL Creatinine 1.28 H (0.66-1.25) mg/dL Glucose 122 H (74-99) mg/dL Calcium 8.7 (8.4-10.2) mg/dL Adrenal panel 07/08/22 Range/Units 05:46 Sodium 136 L (137-145) mmol/L Potassium 4.1 (3.5-5.1) mmol/L Chloride 101 (98-107) mmol/L Carbon Dioxide 27 (22-30) mmol/L BUN 33 H (9-20) mg/dL Creatinine 1.28 H (0.66-1.25) mg/dL Glucose 122 H (74-99) mg/dL Calcium 8.7 (8.4-10.2) mg/dL Assessment and Plan Assessment: GERD. Patient will be scheduled for EGD.
[2022-07-08 11:47] LABS: Glucose,Whole Blood 75 mg/dL (70-110)
--- NOTE | 2022-07-08 15:02 | CA ---
Transthoracic Echo Report Name: Ezequiel Haynes Age: 52 Gender: M : 1970 Exam Date: 07/07/2022 11:12 Exam Location: [place] Echo Ht (in): 69 Wt (lb): 230 Ordering Physician: Buck Johnson MD Attending/Referring Phys: Inbound Sales Advisor Matilde Camargo RDCS Procedure CPT: Indications: chf Cardiac Hx: Technical Quality: Technically difficult study Contrast 1: Lumason Total Dose (mL): 4 Contrast 2: Total Dose (mL): MEASUREMENTS (Male / Female) Normal Values 2D ECHO LV Diastolic Diameter PLAX 6.0 cm 4.2 - 5.9 / 3.9 - 5.3 cm LV Systolic Diameter PLAX 5.2 cm IVS Diastolic Thickness 1.4 cm 0.6 - 1.0 / 0.6 - 0.9 cm LVPW Diastolic Thickness 1.4 cm 0.6 - 1.0 / 0.6 - 0.9 cm LV Relative Wall Thickness 0.5 RV Internal Dim ED PLAX 4.5 cm LA Volume 117.7 cm??? 18 - 58 / 22 - 52 cm??? M-MODE Aortic Root Diameter MM 3.0 cm DOPPLER AV Peak Velocity 117.1 cm/s AV Peak Gradient 5.5 mmHg AV Mean Velocity 89.7 cm/s AV Mean Gradient 3.5 mmHg AV Velocity Time Integral 18.1 cm LVOT Peak Velocity 95.3 cm/s LVOT Peak Gradient 3.6 mmHg LVOT Velocity Time Integral 16.7 cm MV E' Velocity 8.8 cm/s TR Peak Velocity 347.7 cm/s TR Peak Gradient 48.4 mmHg Right Ventricular Systolic Press 62.4 mmHg FINDINGS Left Ventricle Moderately increased left ventricular wall thickness. Mild left ventricular dilatation. Severely reduced global left ventricular systolic function. Left ventricular ejection fraction is estimated at < 20 %. Right Ventricle Moderate right ventricular dilatation. Severe pulmonary hypertension. Right ventricular systolic pressure estimated at 62 mm hg. Right Atrium Mild right atrial dilatation. Catheter/pacemaker wire in the right atrial cavity. Left Atrium Severely increased left atrial volume. Moderately increased left atrial area. Mitral Valve Structurally normal mitral valve. [id number] mitral regurgitation. Aortic Valve No aortic valve stenosis or regurgitation. Tricuspid Valve Structurally normal tricuspid valve. Moderate tricuspid regurgitation. Pulmonic Valve Trace pulmonic regurgitation. Pericardium No pericardial effusion. Aorta Normal size aortic root and proximal ascending aorta. CONCLUSIONS Technically difficult study for interpretation Severely impaired LV function with EF of less than 20% with global hypokinesia Previewed by: Dr. Tomer Jose MD (Electronically Signed) Final Date: 08 July 2022 15:02
--- NOTE | 2022-07-08 16:16 | P.PN ---
Progress Note - Text Progress Note Date: 07/08/22 Chief Complaint: Increasing edema History of presenting complaint: This is a pleasant 52-year-old patient of Dr. Hany Rodríguez. Chronic stable medical conditions include nonischemic CHF EF less than 20%, COPD, diabetes, GERD, hypertension, hyperlipidemia, peripheral neuropathy, obstructive sleep apnea with CPAP, AICD and a pacemaker. Patient lives with his 20-year-old son. Normally uses a cane to get about. did drink heavily in the past and quit 20 years ago. active smoker. Patient presented with increasing edema of lower extremities last few days. Also started becoming short of breath. Has developed blisters on lower extremity. Appetite is fair. Bowel movements are fine. He did have a left foot wound in the past that healed. No cough. Continues to smoke. Short of breath wheezing. Admitted with CHF exacerbation. COPD exacerbation. Started on Lasix drip. 07/07/2022: Edema, short of breath remains. Seen by cardiology. Change to IV Lasix 80 mg every 12. Follow I's and O's. In bed. Entresto added by cardiology 07/08/2022: Remains on IV Lasix 80 mg every 12. Making some urine. Not much. Oral intake fair. Some improvement in breathing. Creatinine increasing. Follow closely. Active Medications Acetaminophen (Acetaminophen Tab 325 Mg Tab) 650 mg PO Q6HR PRN PRN Reason: Mild Pain or Fever > 100.5 Last Admin: 07/06/22 18:39 Dose: 650 mg Albuterol/Ipratropium (Ipratropium-Albuterol 3 Ml Neb) 3 ml INHALATION RT-QID [facility] Last Admin: 07/08/22 11:21 Dose: 3 ml Budesonide (Budesonide 1 Mg/2 Ml Nebu) 1 mg INHALATION RT-BID [facility] Last Admin: 07/08/22 08:09 Dose: 1 mg Calcium Carbonate/Glycine (Calcium Carbonate 500 Mg Chewable) 1,000 mg PO Q4HR PRN PRN Reason: Dyspepsia Last Admin: 07/08/22 09:49 Dose: 1,000 mg Dextrose/Water (Dextrose 50% Syringe 50 Ml) 25 ml IVP PER PROTOCOL PRN; Protocol PRN Reason: Hypoglycemia Dextrose/Water (Dextrose 50% Syringe 50 Ml) 50 ml IVP PER PROTOCOL PRN; Protocol PRN Reason: Hypoglycemia Enoxaparin Sodium (Enoxaparin 40 Mg/0.4 Ml Syringe) 40 mg SQ DAILY [facility] Last Admin: 07/08/22 09:30 Dose: 40 mg Furosemide (Furosemide 10 Mg/Ml 10 Ml Vial) 80 mg IV Q12HR [facility] Last Admin: 07/08/22 09:45 Dose: 80 mg Insulin Aspart (Insulin Aspart (Novolog) 100 Unit/Ml Vial) 0 unit SQ AC-TID [facility]; Protocol Last Admin: 07/08/22 11:58 Dose: Not Given Insulin Detemir (Insulin Detemir (Levemir) 100 Unit/Ml Syr) 100 unit SQ DAILY [facility] Last Admin: 07/08/22 09:30 Dose: 100 unit Lactulose (Lactulose 20 Gm/30 Ml Cup) 20 gm PO DAILY PRN PRN Reason: Constipation Lorazepam (Lorazepam 0.5 Mg Tab) 0.5 mg PO Q6HR PRN PRN Reason: Anxiety Last Admin: 07/08/22 15:38 Dose: 0.5 mg Melatonin (Melatonin 3 Mg Tablet) 3 mg PO HS PRN PRN Reason: Insomnia Metoprolol Succinate (Metoprolol Succinate (Er) 50 Mg Tab.Er.24h) 50 mg PO DAILY [facility] Last Admin: 07/08/22 09:30 Dose: 50 mg Morphine Sulfate (Morphine Sulfate Ir 15 Mg Tablet) 30 mg PO QID PRN PRN Reason: Pain 3-10 Last Admin: 07/08/22 15:38 Dose: 30 mg Naloxone HCl (Naloxone 0.4 Mg/Ml 1 Ml Vial) 0.2 mg IV Q2M PRN PRN Reason: Opioid Reversal Nicotine (Nicotine 21mg/24hr Patch) 1 patch TRANSDERM DAILY [facility] Last Admin: 07/08/22 09:30 Dose: 1 patch Ondansetron HCl (Ondansetron 4 Mg/2 Ml Vial) 4 mg IVP Q6HR PRN PRN Reason: Nausea And Vomiting Last Admin: 07/07/22 13:09 Dose: 4 mg Sacubitril/Valsartan (Sacubitril/Valsartan 24 Mg-26 Mg Tablet) 1 each PO BID [facility] Last Admin: 07/08/22 09:30 Dose: 1 each Spironolactone (Spironolactone 25 Mg Tab) 25 mg PO DAILY [facility] Last Admin: 07/08/22 09:30 Dose: 25 mg Past medical history to include: COPD, CHF-EF 20%, diabetes, GERD, hyperlipidemia, hypertension,(s) sleep apnea uses CPAP sometimes, ischemic cardiomyopathy, chronic cervical back pain and DJD, diabetic foot wounds, peripheral neuropathy, AICD Social history: Lives with his 20 -year-old son. Does use a cane. Disabled. 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 Been smoking 2 packs a day for most of his life now down to half pack a day. Heavy drinking in the past quit 20 years ago. 4 hits of marijuana nightly. Family history: Reviewed, noncontributory to presentation Physical examination: VITAL SIGNS: 98.4, 86, 16, 128/58, 97% room air GENERAL: Sitting up in the clinical, awake EYES: Pupils equal. Conjunctiva normal. HEENT: External appearance of nose and ears normal, oral cavity grossly normal. NECK: JVD unable to assess; masses not palpable. HEART: First and second heart sounds are normal; edema present. LUNGS: Respiratory rate increased; diminished breath sounds prolonged expiration, wheezing. ABDOMEN: Soft, mild distention nontender, liver spleen not palpable, no masses palpable. PSYCH: Alert and oriented x3; mood and affect anxiousl. MUSCULOSKELETAL:No Clubbing/cyanosis;muscles-grossly intact DERMATOLOGICAL: Ichthyosis especially lower extremity bilateral INVESTIGATIONS, reviewed in the clinical context: 07/08/2022: Potassium 4.1 BUN 33 creatinine 1.28 White count 11.2 hemoglobin 14 platelets 204 sodium 136 potassium 4.4 creatinine 0.85 proBNP 2270 troponin I 0.028 EKG tracing personally reviewed by me-normal sinus rhythm. Rate 91. Chest x-ray film personally reviewed by me-george lindo. Venous prominence August 19: Selective left lower extremity angiogram: Good to fair circulation. 2-D echocardiogram: Moderate concentric LVH. EF less than 20% right ventricle [id number] enlargement. Severe pulmonary hypertension Assessment and plan: -Acute on chronic congestive heart failure exacerbation from nonischemic cardiomyopathy systolic dysfunction EF less than 20%: IV Lasix 80 mg every 12. Fluid restriction 2000 mL Strict I's and O's. Toprol. Aldactone AICD. Entresto added -Acute COPD exacerbation in a current smoker DuoNeb 4 times a day. Nebulized Pulmicort -Diabetes mellitus type 2 chronically on insulin, uncontrolled with hyperglycemia and hypoglycemia. Decrease Levemir 80 units subcu daily . Diabetic diet. Accu-Cheks and sliding scale -Hyperlipidemia -Essential hypertension Toprol-XL 50 mg a day -Obstructive sleep apnea sometimes uses CPAP machine -Diabetic peripheral neuropathy -Anxiety Ativan when necessary -DJD Tylenol when necessary -Chronic nicotine dependence patient cigarette smoker Nicotine patch 14 -AICD -Lower extremity significant venous insufficiency Fredy wrap's IV Lasix 80 mg every 12. DuoNeb. Pulmicort. Other medications to continue. Follow labs. Decrease Levemir to 80 units in the morning.
[2022-07-08] MEDS: ONDANSETRON 4 MG/2 ML VIAL IVP PRN (16:32)
[2022-07-08 17:32] LABS: Glucose,Whole Blood 111 mg/dL (70-110)
[2022-07-08 20:34] LABS: Glucose,Whole Blood 111 mg/dL (70-110)
[2022-07-09 01:29] LABS: Glucose,Whole Blood 68 mg/dL (70-110)
[2022-07-09 02:05] LABS: Glucose,Whole Blood 102 mg/dL (70-110)
[2022-07-09] MEDS: LORazepam 0.5 MG TAB PO PRN ×2 (02:14→09:46)
[2022-07-09] MEDS: MORPHINE SULFATE IR 15 MG TABLET PO PRN ×3 (02:17→19:29)
[2022-07-09] MEDS: CALCIUM CARBONATE 500 MG CHEWABLE PO PRN ×2 (02:46→19:29)
[2022-07-09 05:16] LABS: Glucose,Whole Blood 107 mg/dL (70-110)
[2022-07-09 06:35] LABS: African American GFR (CKD) 77 (>60 ml/min/1.73 sqM); Anion Gap 7 mmol/L; Blood Urea Nitrogen 38 mg/dL (9-20); Calcium 8.2 mg/dL (8.4-10.2); Carbon Dioxide 27 mmol/L (22-30); Chloride 99 mmol/L (98-107); Glucose 87 mg/dL (74-99); Non-African American GFR(CKD) 67 (>60 ml/min/1.73 sqM); Potassium 4.4 mmol/L (3.5-5.1); Sodium 133 mmol/L (137-145)
[2022-07-09 07:23] LABS: Glucose,Whole Blood 83 mg/dL (70-110)
[2022-07-09] MEDS: BUDESONIDE 1 MG/2 ML NEBU INHALATION SCH ×2 (07:24→20:47)
[2022-07-09] MEDS: IPRATROPIUM-ALBUTEROL 3 ML NEB INHALATION SCH ×4 (07:24→20:47)
[2022-07-09 09:22] LABS: Glucose,Whole Blood 61 mg/dL (70-110)
[2022-07-09] MEDS: INSULIN ASPART (NovoLOG) 100 UNIT/ML VIAL SQ SCH ×3 (09:41→17:46)
[2022-07-09] MEDS: SACUBITRIL/VALSARTAN 24 MG-26 MG TABLET PO SCH ×2 (09:46→20:42)
[2022-07-09] MEDS: NICOTINE 21MG/24HR PATCH TRANSDERM SCH (09:47)
[2022-07-09] MEDS: FUROSEMIDE 10 MG/ML 10 ML VIAL IV SCH ×2 (09:47→20:42)
[2022-07-09] MEDS: METOPROLOL SUCCINATE (ER) 50 MG TAB.ER.24H PO SCH (09:47)
[2022-07-09] MEDS: SPIRONOLACTONE 25 MG TAB PO SCH (09:47)
--- NOTE | 2022-07-09 09:52 | P.PN ---
Subjective Progress Note Date: 07/09/22 History of present illness: The patient is a pleasant 62-year-old gentleman with a past medical history si gnificant for mild nonobstructive coronary artery disease as well as severe nonischemic cardiomyopathy status post AICD as well as pulmonary hypertension and hypertension and dyslipidemia presented to the hospital complaining of shortness of breath and bilateral lower extremities edema. For the last 2 weeks he has been experiencing progressive bilateral lower extremity edema and also increasing in the shortness of breath but no symptoms of chest pain or chest discomfort and no dizziness or lightheadedness and no feeling of heart racing or fluttering. He stated that he has been compliant with his medications as an outpatient and he was on diuretics as an outpatient. He was also on beta blo cker and he was not on any Fredy inhibitor or ARB. He stated that he gained about 20 pounds. When he presented to the hospital the patient was heart failure with a predominantly right heart failure with severe bilateral lower extremity edema. The chest x-ray showed no acute abnormalities and the proBNP came in to be elevated. The EKG showed sinus rhythm with no significant ST or T-wave abnormalities. The last echocardiogram from 2021 showed severe cardiomyopathy with EF around 20% with global hypokinesia and severe pulmonary hypertension and no significant valvular abnormalities noted on that exam. July 082021 The patient was seen and evaluated this morning. He still short of breath. He continues to have severe bilateral lower extremity edema. On examination he continues to have bilateral rhonchi as well. He has been tolerating the Entresto which was started yesterday. The pressure has been within normal limits. He has been diuresing very well. Creatinine continues to be stable. At this point I would continue the current medical regimen including the current dose of Lasix IV and continue monitor the kidney function and electrolytes and follow-up with the patient 07/09 Patient states that his breathing is better and his lower extremity edema is improving. Patient states that the reason he has not had follow-up in the office is because he has not had transportation for the past year. Echocardiogram reveals EF of less than 20% with global hypokinesia. He is scheduled for an EGD today with Dr. Ramírez. Repeat BMP ordered for tomorrow. Physical examination: Gen: This is an obese 52-year-old male patient resting in recliner, appears to be comfortable VS: reviewed HEENT: Head is atraumatic, normocephalic. Sclerae is anicteric. NECK: Supple. No JVD. LUNGS: Diminished bilat. No intercostal retractions. HEART: Regular rate and rhythm. Systolic murmur. ABDOMEN: Soft. No tenderness. EXTREMITIES: 2+ bilateral pedal edema. NEUROLOGICAL: Patient is awake, alert and oriented x3. Assessment Acute on chronic systolic heart failure with evidence of biventricular failure right more than left Severe nonischemic cardiomyopathy with an EF of 20% Mild nonobstructive coronary artery disease Multiple comorbid conditions Plan Continue the current medical regimen Continue Lasix IV 80 mg every 12 hours for another day Continue patient on Entresto, Aldactone, Toprol-XL Continue monitor the kidney function and electrolytes Follow-up with the patient Nurse practitioner note has been reviewed, I agree with documented findings and plan of care. Patient was seen and examined. Objective - Vital Signs Vital signs: Vital Signs Temp 97.6 F 07/09/22 04:56 Pulse 86 07/09/22 07:41 Resp 16 07/09/22 04:56 BP 100/67 07/09/22 04:56 Pulse Ox 95 07/09/22 04:56 FiO2 Intake & Output 07/08/22 07/09/22 07/09/22 18:59 06:59 18:59 Intake Total 1380 470 Output Total 600 600 Balance 780 -130 Weight 115.1 kg Intake: Oral 1380 470 Output: Urine 600 600 Other: Voiding Method Urinal Urinal # Voids 3 - Labs CBC & Chem 7: 07/07/22 05:29 07/09/22 05:38 Labs: Abnormal Lab Results - Last 24 Hours (Table) 07/08/22 07/08/22 07/09/22 Range/Units 17:30 20:27 01:28 Sodium (137-145) mmol/L BUN (9-20) mg/dL POC Glucose (mg/dL) 111 H 111 H 68 L (70-110) mg/dL Calcium (8.4-10.2) mg/dL 07/09/22 Range/Units 05:38 Sodium 133 L (137-145) mmol/L BUN 38 H (9-20) mg/dL POC Glucose (mg/dL) (70-110) mg/dL Calcium 8.2 L (8.4-10.2) mg/dL Microbiology - Last 24 Hours (Table) 07/06/22 07:10 Blood Culture - Preliminary Blood No Growth after 48 hours 07/06/22 07:22 Blood Culture - Preliminary Blood No Growth after 48 hours
[2022-07-09] MEDS: ENOXAPARIN 40 MG/0.4 ML SYRINGE SQ SCH (10:02)
[2022-07-09] MEDS: INSULIN DETEMIR (LEVEMIR) 100 UNIT/ML SYR SQ SCH (10:03)
[2022-07-09 10:04] LABS: Glucose,Whole Blood 58 mg/dL (70-110)
[2022-07-09 10:28] LABS: Glucose,Whole Blood 84 mg/dL (70-110)
[2022-07-09 12:18] LABS: Glucose,Whole Blood 203 mg/dL (70-110)
--- NOTE | 2022-07-09 15:06 | P.PN ---
Subjective Progress Note Date: 07/09/22 CHIEF COMPLAINT: Abdominal pain and GERD HISTORY OF PRESENT ILLNESS: Patient his was for an acute CHF exacerbation. He had been having abdominal discomfort and reflux symptoms. Patient initially was to have EGD completed today. Patient requested the EGD be canceled he wanted to eat. Patient tolerated diet with no nausea or vomiting. His reflux is better as well. Patient also reports that he was becoming hypoglycemic without eating. Afebrile. Blood sugar was low at 58 now up to 203. PHYSICAL EXAM: VITAL SIGNS: Reviewed. GENERAL: Well-developed in no acute distress. HEENT: No sclera icterus. Extraocular movements grossly intact. Moist buccal mucosa. Head is atraumatic, normocephalic. ABDOMEN: Soft. Nondistended. Nontender. NEUROLOGIC: Alert and oriented. Cranial nerves II through XII grossly intact. ASSESSMENT: 1. GERD PLAN: -EGD canceled for today per patient's request -Okay to resume carbohydrate consistent diet -CHF exacerbation management per cardiology Physician Life Claims Examiner note has been reviewed by physician. Signing provider agrees with the documented findings, assessment, and plan of care. Objective - Vital Signs Vital signs: Vital Signs Temp 98.2 F 07/09/22 11:10 Pulse 76 07/09/22 11:25 Resp 16 07/09/22 11:10 BP 113/73 07/09/22 11:10 Pulse Ox 94 L 07/09/22 11:10 FiO2 Intake & Output 07/08/22 07/09/22 07/09/22 18:59 06:59 18:59 Intake Total 1380 470 480 Output Total 600 600 Balance 780 -130 480 Weight 115.1 kg Intake: Oral 1380 470 480 Output: Urine 600 600 Other: Voiding Method Urinal Urinal # Voids 3 - Labs CBC & Chem 7: 07/07/22 05:29 07/09/22 05:38 Labs: Abnormal Lab Results - Last 24 Hours (Table) 07/08/22 07/08/22 07/09/22 Range/Units 17:30 20:27 01:28 Sodium (137-145) mmol/L BUN (9-20) mg/dL POC Glucose (mg/dL) 111 H 111 H 68 L (70-110) mg/dL Calcium (8.4-10.2) mg/dL 07/09/22 07/09/2222 Range/Units 05:38 09:16 09:54 Sodium 133 L (137-145) mmol/L BUN 38 H (9-20) mg/dL POC Glucose (mg/dL) 61 L 58 L (70-110) mg/dL Calcium 8.2 L (8.4-10.2) mg/dL 07/09/22 Range/Units 12:15 Sodium (137-145) mmol/L BUN (9-20) mg/dL POC Glucose (mg/dL) 203 H (70-110) mg/dL Calcium (8.4-10.2) mg/dL Microbiology - Last 24 Hours (Table) 07/06/22 07:10 Blood Culture - Preliminary Blood No Growth after 72 hours 07/06/22 07:22 Blood Culture - Preliminary Blood No Growth after 72 hours
[2022-07-09 17:12] LABS: Glucose,Whole Blood 182 mg/dL (70-110)
--- NOTE | 2022-07-09 17:44 | P.PN ---
Progress Note - Text Progress Note Date: 07/09/22 Chief Complaint: Increasing edema History of presenting complaint: This is a pleasant 52-year-old patient of Dr. Hany Rodríguez. Chronic stable medical conditions include nonischemic CHF EF less than 20%, COPD, diabetes, GERD, hypertension, hyperlipidemia, peripheral neuropathy, obstructive sleep apnea with CPAP, AICD and a pacemaker. Patient lives with his 20-year-old son. Normally uses a cane to get about. did drink heavily in the past and quit 20 years ago. active smoker. Patient presented with increasing edema of lower extremities last few days. Also started becoming short of breath. Has developed blisters on lower extremity. Appetite is fair. Bowel movements are fine. He did have a left foot wound in the past that healed. No cough. Continues to smoke. Short of breath wheezing. Admitted with CHF exacerbation. COPD exacerbation. Started on Lasix drip. 07/07/2022: Edema, short of breath remains. Seen by cardiology. Change to IV Lasix 80 mg every 12. Follow I's and O's. In bed. Entresto added by cardiology 07/08/2022: Remains on IV Lasix 80 mg every 12. Making some urine. Not much. Oral intake fair. Some improvement in breathing. Creatinine increasing. Follow closely. 07/09/2022: IV Lasix 80 mg every 12. Some shortness of breath. Hypoglycemia earlier today. Patient EGD postponed it patient didn't want to have it today, by Dr. Ramírez. Active Medications Acetaminophen (Acetaminophen Tab 325 Mg Tab) 650 mg PO Q6HR PRN PRN Reason: Mild Pain or Fever > 100.5 Last Admin: 07/06/22 18:39 Dose: 650 mg Albuterol/Ipratropium (Ipratropium-Albuterol 3 Ml Neb) 3 ml INHALATION RT-QID LAN Last Admin: 07/09/22 15:20 Dose: 3 ml Budesonide (Budesonide 1 Mg/2 Ml Nebu) 1 mg INHALATION RT-BID LAN Last Admin: 07/09/22 07:24 Dose: 1 mg Calcium Carbonate/Glycine (Calcium Carbonate 500 Mg Chewable) 1,000 mg PO Q4HR PRN PRN Reason: Dyspepsia Last Admin: 07/09/22 02:46 Dose: 1,000 mg Dextrose/Water (Dextrose 50% Syringe 50 Ml) 25 ml IVP PER PROTOCOL PRN; Protocol PRN Reason: Hypoglycemia Dextrose/Water (Dextrose 50% Syringe 50 Ml) 50 ml IVP PER PROTOCOL PRN; Protocol PRN Reason: Hypoglycemia Enoxaparin Sodium (Enoxaparin 40 Mg/0.4 Ml Syringe) 40 mg SQ DAILY [facility] Last Admin: 07/09/22 10:02 Dose: Not Given Furosemide (Furosemide 10 Mg/Ml 10 Ml Vial) 80 mg IV Q12HR [facility] Last Admin: 07/09/22 09:47 Dose: 80 mg Insulin Aspart (Insulin Aspart (Novolog) 100 Unit/Ml Vial) 0 unit SQ AC-TID [facility]; Protocol Last Admin: 07/09/22 12:46 Dose: 8 unit Insulin Detemir (Insulin Detemir (Levemir) 100 Unit/Ml Syr) 80 unit SQ DAILY [facility] Last Admin: 07/09/22 10:03 Dose: Not Given Lactulose (Lactulose 20 Gm/30 Ml Cup) 20 gm PO DAILY PRN PRN Reason: Constipation Lorazepam (Lorazepam 0.5 Mg Tab) 0.5 mg PO Q6HR PRN PRN Reason: Anxiety Last Admin: 07/09/22 09:46 Dose: 0.5 mg Melatonin (Melatonin 3 Mg Tablet) 3 mg PO HS PRN PRN Reason: Insomnia Metoprolol Succinate (Metoprolol Succinate (Er) 50 Mg Tab.Er.24h) 50 mg PO DAILY [facility] Last Admin: 07/09/22 09:47 Dose: 50 mg Morphine Sulfate (Morphine Sulfate Ir 15 Mg Tablet) 30 mg PO QID PRN PRN Reason: Pain 3-10 Last Admin: 07/09/22 09:46 Dose: 30 mg Naloxone HCl (Naloxone 0.4 Mg/Ml 1 Ml Vial) 0.2 mg IV Q2M PRN PRN Reason: Opioid Reversal Nicotine (Nicotine 21mg/24hr Patch) 1 patch TRANSDERM DAILY [facility] Last Admin: 07/09/22 09:47 Dose: 1 patch Ondansetron HCl (Ondansetron 4 Mg/2 Ml Vial) 4 mg IVP Q6HR PRN PRN Reason: Nausea And Vomiting Last Admin: 07/08/22 16:32 Dose: 4 mg Pantoprazole Sodium (Pantoprazole 40 Mg Tablet) 40 mg PO AC-BRKFST [facility] Sacubitril/Valsartan (Sacubitril/Valsartan 24 Mg-26 Mg Tablet) 1 each PO BID [facility] Last Admin: 07/09/22 09:46 Dose: 1 each Spironolactone (Spironolactone 25 Mg Tab) 25 mg PO DAILY [facility] Last Admin: 07/09/22 09:47 Dose: 25 mg Past medical history to include: COPD, CHF-EF 20%, diabetes, GERD, hyperlipidemia, hypertension,(s) sleep apnea uses CPAP sometimes, ischemic cardiomyopathy, chronic cervical back pain and DJD, diabetic foot wounds, peripheral neuropathy, AICD Social history: Lives with his 20 -year-old son. Does use a cane. Disabled. 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 Been smoking 2 packs a day for most of his life now down to half pack a day. Heavy drinking in the past quit 20 years ago. 4 hits of marijuana nightly. Family history: Reviewed, noncontributory to presentation Physical examination: VITAL SIGNS: 98.2, 90, 16, 11 3/73, 94% room air GENERAL: Sitting up in the clinical, awake EYES: Pupils equal. Conjunctiva normal. HEENT: External appearance of nose and ears normal, oral cavity grossly normal. NECK: JVD unable to assess; masses not palpable. HEART: First and second heart sounds are normal; edema present. LUNGS: Respiratory rate increased; diminished breath sounds prolonged expiration, wheezing. ABDOMEN: Soft, mild distention nontender, liver spleen not palpable, no masses palpable. PSYCH: Alert and oriented x3; mood and affect anxiousl. MUSCULOSKELETAL:No Clubbing/cyanosis;muscles-grossly intact DERMATOLOGICAL: Ichthyosis especially lower extremity bilateral INVESTIGATIONS, reviewed in the clinical context: 07/09/2022: Potassium 4.4 creatinine 1.23 07/08/2022: Potassium 4.1 BUN 33 creatinine 1.28 White count 11.2 hemoglobin 14 platelets 204 sodium 136 potassium 4.4 creatinine 0.85 proBNP 2270 troponin I 0.028 EKG tracing personally reviewed by me-normal sinus rhythm. Rate 91. Chest x-ray film personally reviewed by me-george lindo. Venous prominence August 19: Selective left lower extremity angiogram: Good to fair circulation. 2-D echocardiogram: Moderate concentric LVH. EF less than 20% right ventricle [id number] enlargement. Severe pulmonary hypertension Assessment and plan: -Acute on chronic congestive heart failure exacerbation from nonischemic cardiomyopathy systolic dysfunction EF less than 20%: IV Lasix 80 mg every 12. Fluid restriction 2000 mL Strict I's and O's. Toprol. Aldactone AICD. Entresto added -Acute COPD exacerbation in a current smoker DuoNeb 4 times a day. Nebulized Pulmicort -Diabetes mellitus type 2 chronically on insulin, uncontrolled with hyperglycemia and hypoglycemia. Decrease Levemir 80 units subcu daily . Diabetic diet. Accu-Cheks and sliding scale -Hyperlipidemia -Essential hypertension Toprol-XL 50 mg a day -Obstructive sleep apnea sometimes uses CPAP machine -Diabetic peripheral neuropathy -Anxiety Ativan when necessary -DJD Tylenol when necessary -Chronic nicotine dependence patient cigarette smoker Nicotine patch 14 -AICD -Lower extremity significant venous insufficiency Fredy wrap's IV Lasix 80 mg every 12. DuoNeb. Pulmicort. Other medications to continue. Patient did not want EGD today.
[2022-07-09] MEDS: PANTOPRAZOLE 40 MG TABLET PO SCH (17:46)
[2022-07-09 20:38] LABS: Glucose,Whole Blood 105 mg/dL (70-110)
[2022-07-09] MEDS: ONDANSETRON 4 MG/2 ML VIAL IVP PRN (20:43)
[2022-07-09 21:11] VITALS: RESP 18
[2022-07-10] MEDS: MORPHINE SULFATE IR 15 MG TABLET PO PRN ×2 (02:41→08:43)
[2022-07-10] MEDS: LORazepam 0.5 MG TAB PO PRN ×2 (02:42→10:14)
[2022-07-10] MEDS: BUDESONIDE 1 MG/2 ML NEBU INHALATION SCH (07:09)
[2022-07-10] MEDS: IPRATROPIUM-ALBUTEROL 3 ML NEB INHALATION SCH ×2 (07:09→11:13)
[2022-07-10 07:22] LABS: Glucose,Whole Blood 89 mg/dL (70-110)
[2022-07-10] MEDS: INSULIN ASPART (NovoLOG) 100 UNIT/ML VIAL SQ SCH ×2 (07:53→12:49)
[2022-07-10] MEDS: SACUBITRIL/VALSARTAN 24 MG-26 MG TABLET PO SCH (08:31)
[2022-07-10] MEDS: METOPROLOL SUCCINATE (ER) 50 MG TAB.ER.24H PO SCH (08:31)
[2022-07-10] MEDS: PANTOPRAZOLE 40 MG TABLET PO SCH (08:31)
[2022-07-10] MEDS: SPIRONOLACTONE 25 MG TAB PO SCH (08:31)
[2022-07-10] MEDS: ENOXAPARIN 40 MG/0.4 ML SYRINGE SQ SCH (08:32)
[2022-07-10] MEDS: NICOTINE 21MG/24HR PATCH TRANSDERM SCH (08:32)
[2022-07-10] MEDS: INSULIN DETEMIR (LEVEMIR) 100 UNIT/ML SYR SQ SCH (08:32)
[2022-07-10] MEDS ORDERED: FUROSEMIDE 20 MG TAB PO SCH (09:00)
[2022-07-10 09:21] LABS: Anion Gap 9.9 mmol/L (10.00-18.00); BUN/Creat Ratio 22.79 Ratio (12.00-20.00); Blood Urea Nitrogen 31.9 mg/dL (9.0-27.0); Calcium 8.8 mg/dL (8.7-10.3); Carbon Dioxide 27.1 mmol/L (20.0-27.5); Potassium 4.5 mmol/L (3.5-5.5)
--- NOTE | 2022-07-10 09:40 | P.PN ---
Subjective Progress Note Date: 07/10/22 History of present illness: The patient is a pleasant 62-year-old gentleman with a past medical history si gnificant for mild nonobstructive coronary artery disease as well as severe nonischemic cardiomyopathy status post AICD as well as pulmonary hypertension and hypertension and dyslipidemia presented to the hospital complaining of shortness of breath and bilateral lower extremities edema. For the last 2 weeks he has been experiencing progressive bilateral lower extremity edema and also increasing in the shortness of breath but no symptoms of chest pain or chest discomfort and no dizziness or lightheadedness and no feeling of heart racing or fluttering. He stated that he has been compliant with his medications as an outpatient and he was on diuretics as an outpatient. He was also on beta blo cker and he was not on any Fredy inhibitor or ARB. He stated that he gained about 20 pounds. When he presented to the hospital the patient was heart failure with a predominantly right heart failure with severe bilateral lower extremity edema. The chest x-ray showed no acute abnormalities and the proBNP came in to be elevated. The EKG showed sinus rhythm with no significant ST or T-wave abnormalities. The last echocardiogram from 2021 showed severe cardiomyopathy with EF around 20% with global hypokinesia and severe pulmonary hypertension and no significant valvular abnormalities noted on that exam. July 082021 The patient was seen and evaluated this morning. He still short of breath. He continues to have severe bilateral lower extremity edema. On examination he continues to have bilateral rhonchi as well. He has been tolerating the Entresto which was started yesterday. The pressure has been within normal limits. He has been diuresing very well. Creatinine continues to be stable. At this point I would continue the current medical regimen including the current dose of Lasix IV and continue monitor the kidney function and electrolytes and follow-up with the patient 07/09 Patient states that his breathing is better and his lower extremity edema is improving. Patient states that the reason he has not had follow-up in the office is because he has not had transportation for the past year. Echocardiogram reveals EF of less than 20% with global hypokinesia. He is scheduled for an EGD today with Dr. Ramírez. Repeat BMP ordered for tomorrow. 07/10 The patient states that his breathing and edema are significantly improved. He is hoping to go home today. EGD scheduled for yesterday was postponed. He is currently on Lasix 80 mg IV every 12 hours which will be transitioned to oral. He is also on a fluid restriction. Repeat blood work reveals electrolytes within normal limits, BUN 31 and creatinine 1.4. Physical examination: Gen: This is an obese 52-year-old male patient lying flat in bed with legs elevated on bedframe, appears to be comfortable VS: reviewed HEENT: Head is atraumatic, normocephalic. Sclerae is anicteric. NECK: Supple. No JVD. LUNGS: Diminished bilat. No intercostal retractions. HEART: Regular rate and rhythm. Systolic murmur. ABDOMEN: Soft. No tenderness. EXTREMITIES: 1+ bilateral pedal edema. NEUROLOGICAL: Patient is awake, alert and oriented x3. Assessment Acute on chronic systolic heart failure with evidence of biventricular failure right more than left Severe nonischemic cardiomyopathy with an EF of 20% Mild nonobstructive coronary artery disease Multiple comorbid conditions Plan Continue the current medical regimen Transitioned IV Lasix to oral 60 mg twice daily Continue patient on Entresto, Aldactone, Toprol-XL Continue monitor the kidney function and electrolytes Patient is cleared for discharge from cardiology with plan to follow-up in the office in 3 weeks. Nurse practitioner note has been reviewed, I agree with documented findings and plan of care. Patient was seen and examined. Objective - Vital Signs Vital signs: Vital Signs Temp 97.6 F 07/10/22 04:41 Pulse 88 07/10/22 07:26 Resp 18 07/10/22 04:41 BP 90/61 07/10/22 04:41 Pulse Ox 94 L 07/10/22 04:41 FiO2 Intake & Output 07/09/22 07/10/22 07/10/22 18:59 06:59 18:59 Intake Total 960 500 Balance 960 500 Weight 115.258 kg Intake: Oral 960 500 Other: Voiding Method Urinal # Voids 2 - Labs CBC & Chem 7: 07/07/22 05:29 07/10/22 06:09 Labs: Abnormal Lab Results - Last 24 Hours (Table) 07/09/22 07/09/22 07/09/22 Range/Units 09:16 09:54 12:15 POC Glucose (mg/dL) 61 L 58 L 203 H (70-110) mg/dL 07/09/22 Range/Units 17:10 POC Glucose (mg/dL) 182 H (70-110) mg/dL Microbiology - Last 24 Hours (Table) 07/06/22 07:10 Blood Culture - Preliminary Blood No Growth after 72 hours 07/06/22 07:22 Blood Culture - Preliminary Blood No Growth after 72 hours
[2022-07-10 12:17] LABS: Glucose,Whole Blood 153 mg/dL (70-110)
[2022-07-10 12:19] VITALS: BP 96/51; PULSE 68; TEMP 98.7
--- NOTE | 2022-07-10 12:33 | FL ---
EXAMINATION TYPE: FL UGI w esophagus DATE OF EXAM: 07/10/2022 COMPARISON: CT abdomen and pelvis from July 09, 2020. HISTORY: Nausea and reflux. TECHNIQUE: A double contrast UGI study is performed. A total of 44 seconds of fluoroscopic time was utilized during procedure and 39 images obtained. FINDINGS: Deaf/Hard Of Hearing Specialist image of the abdomen shows overall nonobstructive bowel gas pattern. Cholecystectomy clips are redemonstrated. Right-sided ventricular/pacemaker lead again seen. The esophagus shows satisfactory motility and emptying into the stomach. No evidence of fixed hiatal hernia or stricture noted. The stomach is suboptimally evaluated as there is internal debris. Patient had meal earlier today. Ev aluation of the folds and ulcers is suboptimal. Satisfactory distention noted. At least moderate halle roesophageal reflux was seen during real time performance of this study. The duodenal bulb, sweep, and proximal small bowel loops are unremarkable. IMPRESSION: [id number] gastroesophageal reflux is confirmed. No fixed hiatal hernia is presen t.
--- NOTE | 2022-07-10 12:42 | P.PN ---
Subjective Progress Note Date: 07/10/22 CHIEF COMPLAINT: Abdominal pain and GERD HISTORY OF PRESENT ILLNESS: Patient is admitted for an acute CHF exacerbation. He had been having abdominal discomfort and reflux symptoms. Patient initially was to have EGD completed today. Patient requested the EGD be canceled he wanted to eat. Patient tolerated diet with no nausea or vomiting. His reflux is better. Medicine service is discharging patient. PHYSICAL EXAM: VITAL SIGNS: Reviewed. GENERAL: Well-developed in no acute distress. HEENT: No sclera icterus. Extraocular movements grossly intact. Moist buccal mucosa. Head is atraumatic, normocephalic. ABDOMEN: Soft. Nondistended. Nontender. NEUROLOGIC: Alert and oriented. Cranial nerves II through XII grossly intact. ASSESSMENT: 1. GERD PLAN: -EGD canceled yesterday per patient's request -Patient being discharged today. Recommend outpatient follow-up for EGD. Initially upper GI was going to be completed for further evaluation of patient's reflux and nausea. However, patient wants to be discharged home with outpatient follow-up. Again he is tolerating diet no nausea today. -Patient can be discharged from surgical standpoint Physician Margarine Maker note has been reviewed by physician. Signing provider agrees with the documented findings, assessment, and plan of care. Objective - Vital Signs Vital signs: Vital Signs Temp 98.7 F 07/10/22 12:10 Pulse 68 07/10/22 12:10 Resp 18 07/10/22 12:10 BP 96/51 07/10/22 12:10 Pulse Ox 97 07/10/22 12:10 FiO2 Intake & Output 07/09/22 07/10/22 07/10/22 18:59 06:59 18:59 Intake Total 960 500 Balance 960 500 Weight 115.258 kg Intake: Oral 960 500 Other: Voiding Method Urinal # Voids 2 - Labs CBC & Chem 7: 07/07/22 05:29 07/10/22 06:09 Labs: Abnormal Lab Results - Last 24 Hours (Table) 07/09/22 07/10/22 07/10/22 Range/Units 17:10 06:09 12:14 Anion Gap 9.90 L (10.00-18.00) mmol/L BUN 31.9 H (9.0-27.0) mg/dL Est GFR (CKD-EPI)NonAf 57.0 L (60.0-200.0) BUN/Creatinine Ratio 22.79 H (12.00-20.00) Ratio POC Glucose (mg/dL) 182 H 153 H (70-110) mg/dL Microbiology - Last 24 Hours (Table) 07/06/22 07:10 Blood Culture - Preliminary Blood No Growth after 96 hours 07/06/22 07:22 Blood Culture - Preliminary Blood No Growth after 96 hours
--- NOTE | 2022-07-10 18:18 | P.DS ---
Providers Date of admission: 07/06/22 06:31 Expected date of discharge: 07/10/22 Attending physician: Buck Johnson Consults: 07/06/22 13:03 Consult Physician Routine Consulting Provider: Tomer Jose Consult Reason/Comments: CHF Do you want consulting provider notified?: Yes 07/08/22 07:02 Consult Physician Routine Consulting Provider: Seth Ramírez Consult Reason/Comments: abd pain Do you want consulting provider notified?: Yes Primary care physician: [facility] Course: Chief Complaint: Increasing edema History of presenting complaint: This is a pleasant 52-year-old patient of Dr. Hany Rodríguez. Chronic stable medical conditions include nonischemic CHF EF less than 20%, COPD, diabetes, GERD, hypertension, hyperlipidemia, peripheral neuropathy, obstructive sleep apnea with CPAP, AICD and a pacemaker. Patient lives with his 20-year-old son. Normally uses a cane to get about. did drink heavily in the past and quit 20 years ago. active smoker. Patient presented with increasing edema of lower extremities last few days. Also started becoming short of breath. Has developed blisters on lower extremity. Appetite is fair. Bowel movements are fine. He did have a left foot wound in the past that healed. No cough. Continues to smoke. Short of breath wheezing. Admitted with CHF exacerbation. COPD exacerbation. Started on Lasix drip. 07/07/2022: Edema, short of breath remains. Seen by cardiology. Change to IV Lasix 80 mg every 12. Follow I's and O's. In bed. Entresto added by cardiology 07/08/2022: Remains on IV Lasix 80 mg every 12. Making some urine. Not much. Oral intake fair. Some improvement in breathing. Creatinine increasing. Follow closely. 07/09/2022: IV Lasix 80 mg every 12. Some shortness of breath. Hypoglycemia earlier today. Patient EGD postponed it patient didn't want to have it today, by Dr. Ramírez. 07/10/2022: Edema present. Breathing much improved. Change to oral Lasix. 60 mg twice a day. Fluid restriction. Patient will follow with Dr. Ramírez's outpatient. Discussed with patient. Discussion and discharge planning more than 35 minutes Past medical history to include: COPD, CHF-EF 20%, diabetes, GERD, hyperlipidemia, hypertension,(s) sleep apnea uses CPAP sometimes, ischemic cardiomyopathy, chronic cervical back pain and DJD, diabetic foot wounds, peripheral neuropathy, AICD Social history: Lives with his 20 -year-old son. Does use a cane. Disabled. 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 Been smoking 2 packs a day for most of his life now down to half pack a day. Heavy drinking in the past quit 20 years ago. 4 hits of marijuana nightly. Family history: Reviewed, noncontributory to presentation Physical examination: VITAL SIGNS: 98.7, 68, 18, 96/51, 97% room air GENERAL: Sitting of 90 bed, comfortable EYES: Pupils equal. Conjunctiva normal. HEENT: External appearance of nose and ears normal, oral cavity grossly normal. NECK: JVD unable to assess; masses not palpable. HEART: First and second heart sounds are normal; edema present. LUNGS: Respiratory rate increased; diminished breath sounds prolonged ex piration, wheezing. ABDOMEN: Soft, mild distention nontender, liver spleen not palpable, no masses palpable. PSYCH: Alert and oriented x3; mood and affect anxiousl. MUSCULOSKELETAL:No Clubbing/cyanosis;muscles-grossly intact DERMATOLOGICAL: Ichthyosis especially lower extremity bilateral INVESTIGATIONS, reviewed in the clinical context: 07/10/2022: Potassium 4.5 creatinine 1.4 White count 11.2 hemoglobin 14 platelets 204 sodium 136 potassium 4.4 creatinine 0.85 proBNP 2270 troponin I 0.028 EKG tracing personally reviewed by me-normal sinus rhythm. Rate 91. Chest x-ray film personally reviewed by me-george lindo. Venous prominence August 19: Selective left lower extremity angiogram: Good to fair circulation. 2-D echocardiogram: Moderate concentric LVH. EF less than 20% right ventricle [id number] enlargement. Severe pulmonary hypertension Assessment and plan: -Acute on chronic congestive heart failure exacerbation from nonischemic cardiomyopathy systolic dysfunction EF less than 20%: Lasix 60 mg by mouth twice a day. Fluid restriction 2000 mL Strict I's and O's. Toprol. Aldactone 25 mg AICD. Entresto one tablet by mouth twice a day -Acute COPD exacerbation in a current smoker DuoNeb 3 times a day. Symbicort 164.5 one puff twice a day -Diabetes mellitus type 2 chronically on insulin, uncontrolled with hyperglycemia and hypoglycemia. Lantus 70 units subcu daily . Diabetic diet. Accu-Cheks and sliding scale -Hyperlipidemia -Essential hypertension Toprol-XL 50 mg a day -Obstructive sleep apnea sometimes uses CPAP machine -Diabetic peripheral neuropathy -Anxiety Ativan when necessary -DJD Tylenol when necessary -Chronic nicotine dependence patient cigarette smoker Nicotine patch 14 -AICD -Lower extremity significant venous insufficiency Fredy wrap's Disposition: Home Plan - Discharge Summary Discharge Rx Participant: No New Discharge Prescriptions: New Spironolactone [Aldactone] 25 mg PO DAILY #30 tab Ipratropium-Albuterol Nebulize [Duoneb 0.5 mg-3 mg/3 ml Soln] 3 ml INHALATION TID #90 each Furosemide [Lasix] 60 mg PO BID #60 tablet Budesonide/Formoterol Fumarate [Symbicort 160-4.5 Mcg Inhaler] 1 puff INHALATION BID #10.2 gm Metoprolol Succinate (ER) [Toprol XL] 50 mg PO DAILY #30 tab Nicotine 21Mg/24Hr Patch [Habitrol] 1 patch TRANSDERM DAILY #14 patch Pantoprazole [Protonix] 40 mg PO AC-BRKFST #30 tab Sacubitril/Valsartan [Entresto 24 mg-26 mg Tablet] 1 each PO BID #60 tab Continue Morphine Sulfate Ir [MSIR] 30 mg PO QID PRN PRN Reason: Pain INSULIN LISPRO (humaLOG) [humaLOG] 5 - 10 unit SQ DAILY Albuterol Inhaler [Ventolin Hfa Inhaler] 2 puff INHALATION RT-QID PRN PRN Reason: Shortness Of Breath Changed Insulin Glargine,Hum.rec.anlog [Toujeo Solostar] 70 units SQ DAILY #0 Discontinued Metoprolol Succinate (ER) [Toprol Xl] 100 mg PO DAILY #30 tab Furosemide [Lasix] 20 mg PO QID Discharge Medication List Albuterol Inhaler [Ventolin Hfa Inhaler] 2 puff INHALATION RT-QID PRN 07/06/22 [History] INSULIN LISPRO (humaLOG) [humaLOG] 5 - 10 unit SQ DAILY 07/06/22 [History] Morphine Sulfate Ir [MSIR] 30 mg PO QID PRN 07/06/22 [History] Budesonide/Formoterol Fumarate [Symbicort 160-4.5 Mcg Inhaler] 1 puff INHALATION BID #10.2 gm 07/10/22 [Rx] Furosemide [Lasix] 60 mg PO BID #60 tablet 07/10/22 [Rx] Insulin Glargine,Hum.rec.anlog [Toujeo Solostar] 70 units SQ DAILY #0 07/10/22 [Rx] Ipratropium-Albuterol Nebulize [Duoneb 0.5 mg-3 mg/3 ml Soln] 3 ml INHALATION TID #90 each 07/10/22 [Rx] Metoprolol Succinate (ER) [Toprol XL] 50 mg PO DAILY #30 tab 07/10/22 [Rx] Nicotine 21Mg/24Hr Patch [Habitrol] 1 patch TRANSDERM DAILY #14 patch 07/10/22 [Rx] Pantoprazole [Protonix] 40 mg PO AC-BRKFST #30 tab 07/10/22 [Rx] Sacubitril/Valsartan [Entresto 24 mg-26 mg Tablet] 1 each PO BID #60 tab 07/10/22 [Rx] Spironolactone [Aldactone] 25 mg PO DAILY #30 tab 07/10/22 [Rx] Follow up Appointment(s)/Referral(s): Hany Rodríguez MD [Primary Care Provider] - 1-2 days (PLEASE CALL AND SCHEDULE APPOINTMENT.) Cliff Abbasi MD [STAFF PHYSICIAN] - 07/19/22 2:30 pm (YOU HAVE AN APPOINTMENT ON 07/19/22 AT 2:30 PM AT [facility] THEN AN APPOINTMENT SAME DATE AT 3:[address] Yared ABBASI.) Seth Ramírez MD [STAFF PHYSICIAN] - 07/19/22 1:15 pm Patient Instructions/Handouts: Metoprolol (By mouth), Spironolactone (By mouth), Furosemide (By mouth), Nicotine (Absorbed through the skin), Ipratropium/Albuterol (By breathing), Pantoprazole (By mouth), Budesonide/Formoterol (By breathing), Sacubitril/Valsartan (By mouth), Heart Failure (DC), How to Stop Smoking (DC), GERD (Gastroesophageal Reflux Disease) (DC), Low-Sodium Diet (DC), Fluid Restriction (DC) Activity/Diet/Wound Care/Special Instructions: fluid restriction 1500 cc /day Discharge Disposition: HOME SELF-CARE
== END 2022-07-10 14:07 | disposition home or self-care (01) | DRG 291 ==
LOC: EC 23:57 → 5NMEDONC 07-06 06:31
PROVIDERS: ADMIT Hospitalist; ATTEND Hospitalist
DX: I11.0 Hypertensive heart disease with heart failure (principal); I50.23 Acute on chronic systolic (congestive) heart failure; J44.1 Chronic obstructive pulmonary disease with (acute) exacerbation; I25.5 Ischemic cardiomyopathy; K21.9 Gastro-esophageal reflux disease without esophagitis; E78.5 Hyperlipidemia, unspecified; G47.33 Obstructive sleep apnea (adult) (pediatric); M54.2 Cervicalgia; G89.29 Other chronic pain; E11.42 Type 2 diabetes mellitus with diabetic polyneuropathy; M19.90 Unspecified osteoarthritis, unspecified site; I87.2 Venous insufficiency (chronic) (peripheral); I50.82 Biventricular heart failure; I42.8 Other cardiomyopathies; I27.20 Pulmonary hypertension, unspecified; I25.10 Atherosclerotic heart disease of native coronary artery without angina pectoris; F90.9 Attention-deficit hyperactivity disorder, unspecified type; F41.9 Anxiety disorder, unspecified; F17.210 Nicotine dependence, cigarettes, uncomplicated; F12.90 Cannabis use, unspecified, uncomplicated; E11.649 Type 2 diabetes mellitus with hypoglycemia without coma; F10.11 Alcohol abuse, in remission; E11.65 Type 2 diabetes mellitus with hyperglycemia; I25.2 Old myocardial infarction; Z95.810 Presence of automatic (implantable) cardiac defibrillator; Z79.899 Other long term (current) drug therapy; Z79.51 Long term (current) use of inhaled steroids; Z79.4 Long term (current) use of insulin; Z88.1 Allergy status to other antibiotic agents
CPT/HCPCS: 36415; 51702; 71046; 74022; 74240; 80048; 80053; 83735; 83880; 84484; 85025; 85610; 85730; 87040; 90471; 93005; 93306; 94640; 96361; 96365; 96366; 96367; 96372; 96374; 96375; 96376; 99285

== ENCOUNTER 2022-07-16 20:09 | Emergency (ER) | payer MEDICARE, OTHER ==
[2022-07-16 20:38] VITALS: TEMP 97.6
[2022-07-16 21:02] VITALS: RESP 18
[2022-07-16] MEDS ORDERED: FUROSEMIDE 10 MG/ML 10 ML VIAL IV STA (21:18)
--- NOTE | 2022-07-16 21:18 | ED ---
SOB HPI - General Chief Complaint: Shortness of Breath Stated Complaint: SOB,fluid in legs Time Seen by Provider: 07/16/22 21:07 Source: patient, RN notes reviewed Mode of arrival: ambulatory Limitations: no limitations - History of Present Illness Initial Comments: This is a pleasant 52-year-old male with history of multiple medical issues include COPD, heart earlier, diabetes mellitus, hypertension. Patient presents to the emergency department today stating that he was admitted to the hospital last week for congestive heart failure. Patient states that his legs seem to be filling up with fluid. Complaining of ongoing shortness of breath but main complaint is the swollen legs. Patient is on spironolactone and Lasix. No headache, no fever or chills, no changes in vision or hearing, no sore throat or difficulty with speech, no neck pain, no chest pain, no abdominal pain, no nausea or vomiting, no changes in urination or bowel movements, no numbness or tingling,mild bilateral leg pain due to edema, no skin rashes or lesions. Past medical, surgical, social, and family history reviewed. MD Complaint: shortness of breath - Related Data Home Medications Medication Instructions Recorded Confirmed Albuterol Inhaler [Ventolin Hfa 2 puff INHALATION RT-QID PRN 07/06/22 07/06/22 Inhaler] INSULIN LISPRO (humaLOG) [humaLOG] 5 - 10 unit SQ DAILY 07/06/22 07/06/22 Morphine Sulfate Ir [MSIR] 30 mg PO QID PRN 07/06/22 07/06/22 Previous Rx's Medication Instructions Recorded Budesonide/Formoterol Fumarate 1 puff INHALATION BID #10.2 gm 07/10/22 [Symbicort 160-4.5 Mcg Inhaler] Furosemide [Lasix] 60 mg PO BID #60 tablet 07/10/22 Insulin Glargine,Hum.rec.anlog 70 units SQ DAILY #0 07/10/22 [Toujeo Solostar] Ipratropium-Albuterol Nebulize 3 ml INHALATION TID #90 each 07/10/22 [Duoneb 0.5 mg-3 mg/3 ml Soln] Metoprolol Succinate (ER) [Toprol 50 mg PO DAILY #30 tab 07/10/22 XL] Nicotine 21Mg/24Hr Patch [Habitrol] 1 patch TRANSDERM DAILY #14 patch 07/10/22 Pantoprazole [Protonix] 40 mg PO AC-BRKFST #30 tab 07/10/22 Sacubitril/Valsartan [Entresto 24 1 each PO BID #60 tab 07/10/22 mg-26 mg Tablet] Spironolactone [Aldactone] 25 mg PO DAILY #30 tab 07/10/22 Allergies Allergy/AdvReac Type Severity Reaction Status Date / Time azithromycin Allergy Anaphylaxis Verified 07/16/22 20:37 gemfibrozil [From Lopid] Allergy Rash/Hives Verified 07/16/22 20:37 Review of Systems ROS Statement: Those systems with pertinent positive or pertinent negative responses have been documented in the HPI. ROS Other: All systems not noted in ROS Statement are negative. Past Medical History Past Medical History: Asthma, Coronary Artery Disease (CAD), Chest Pain / Angina, Heart Failure, COPD, Diabetes Mellitus, GERD/Reflux, Hyperlipidemia, Hypertension, Myocardial Infarction ([place]), Pneumonia, Sleep Apnea/CPAP/BIPAP, Supraventricular Tachycardia (SVT) Additional Past Medical History / Comment(s): Ischemic cardiomyopathy, chronic CHF, SVT, IDDM type II, KAMINI with CPAP occasionally used, chronic cervical/back pain, DJD, diabetic foot wounds x 4 months. Last Myocardial Infarction Date:: 12/11/17 History of Any Multi-Drug Resistant Organisms: MRSA Date of last positivie culture/infection: 03/10/20 MDRO Source:: MRSA TOE Past Surgical History: Adenoidectomy, AICD, Back Surgery, Cholecystectomy, EPS, Heart Catheterization, Pacemaker, Tonsillectomy Additional Past Surgical History / Comment(s): 12/10/17 cardiac cath, previous cardiac cath, 09/02/14 AICD/pacer, EGD/colonoscopy, low back surgery with fusion. Past Anesthesia/Blood Transfusion Reactions: Motion Sickness Additional Past Anesthesia/Blood Transfusion Reaction / Comment(s): Pt states he received blood with back surgery without reaction. Type of Cardiac Device: Permanent Pacemaker, AICD Device Placement Date:: 09-02-14 Past Psychological History: ADD/ADHD, Anxiety Smoking Status: Current every day smoker Past Alcohol Use History: Occasional Past Drug Use History: Marijuana - Past Family History Father Additional Family Medical History / Comment(s): Pt has not kept in close contact with his father for many yrs. Father was an alcoholic and pt believes he has from cirrhosis of the liver. Mother History Unknown: Yes Additional Family Medical History / Comment(s): Pt is not in contact with his mother or his father who he has heard had . General Exam - General Exam Comments Initial Comments: Vital signs stable, patient afebrile. Patient does not appear to be ill or toxic. Blood pressure initially 93/53 104/70 on recheck. Remainder of vital signs are stable. Patient actively hydrated. No tachypnea. Limitations: no limitations General appearance: alert, in no apparent distress Head exam: Present: atraumatic, normocephalic, normal inspection Eye exam: Present: normal appearance, PERRL, EOMI. Absent: scleral icterus, conjunctival injection, periorbital swelling ENT exam: Present: normal exam, normal oropharynx, mucous membranes dry, mucous membranes moist, normal external ear exam Neck exam: Present: normal inspection, full ROM, other (No JVD noted). Absent: tenderness, meningismus, lymphadenopathy Respiratory exam: Present: wheezes (Scant, expiratory wheezes.). Absent: respiratory distress, rales, rhonchi, stridor, chest wall tenderness, accessory muscle use, decreased breath sounds, prolonged expiratory Cardiovascular Exam: Present: regular rate, normal rhythm, normal heart sounds. Absent: systolic murmur, diastolic murmur, rubs, gallop, clicks GI/Abdominal exam: Present: soft, normal bowel sounds. Absent: distended, tenderness, guarding, rebound, rigid Extremities exam: Present: normal inspection, full ROM, normal capillary refill, pedal edema (Patient has 3+ pitting edema bilateral lower extremities.), other (Dusky, chronic appearing skin changes with no evidence of acute infectious process. No erythema, serous fluid from the lateral aspect of the right leg.). Absent: tenderness, joint swelling, calf tenderness Back exam: Present: normal inspection Neurological exam: Present: alert, oriented X3, CN II-XII intact Psychiatric exam: Present: normal affect, normal mood Skin exam: Present: warm, dry, intact, normal color. Absent: rash Course Vital Signs 07/16/22 07/16/22 07/16/22 20:34 20:57 22:40 Temperature 97.6 F Pulse Rate 74 80 77 Pulse Rate [ 80 Apical] Respiratory 22 18 18 Rate Blood Pressure 95/53 104/70 104/75 O2 Sat by Pulse 95 96 96 Oximetry - Reevaluation(s) Reevaluation #1: 07/16/22 23:25 Medical record is reviewed Symptoms are improved here in the emergency department Patient is informed of results and questions answered Patient in no distress Medical Decision Making - Medical Decision Making DIFFERENTIAL diagnosis, CHF exacerbation, combination CHF with dependent edema, does not appear to be consistent with infectious process or DVT. Patient in no respiratory distress was in the room. Patient sitting up with his legs down. I suspect the patient is not elevating his legs enough. All findings discussed with the patient. CBC and CMP were essentially unremarkable. Troponin was negative. EKG did not show any acute changes. Venous Doppler was negative. I do not believe the patient's having a CHF flare. It sounds like the patient is having dependent edema. Patient told to elevate his legs. Patient continues to sit in the bed here in the ER with his legs down. 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 Patient did receive Lasix here in the ER. All other results reviewed with the patient. Patient stable for discharge. I did consider antibiotics. However this appears to be more related to dependent edema as opposed to COPD exacerbation or exacerbation CHF. After discussion with the attending physician. An further consideration antibodies were deferred at this time. Patient was discharged in stable condition The case was discussed in detail with ED attending physician. Presentation, findings, treatment plan discussed in detail. Patient was told to return to the ER for any signs or symptoms worsen. Told to return immediately if any other problems arise. All questions answered. Treatment plan discussed. Patient in agreement Every effort has been made to ensure accuracy of this dictation. However, due to the limitations of electronic medical records and dictation devices, errors in charting still occur. Refinery Operator Assistant Dr. Harrison - Lab Data Result diagrams: 07/16/22 21:34 07/16/22 21:34 Lab Results 07/16/22 07/16/22 07/16/22 Range/Units 21:34 21:34 21:34 WBC 10.1 (3.8-10.6) k/uL RBC 4.87 (4.30-5.90) m/uL Hgb 14.4 (13.0-17.5) gm/dL Hct 45.0 (39.0-53.0) % MCV 92.5 (80.0-100.0) fL MCH 29.5 (25.0-35.0) pg MCHC 31.9 (31.0-37.0) g/dL RDW 13.6 (11.5-15.5) % Plt Count 197 (150-450) k/uL MPV 9.5 Neutrophils % 74 % Lymphocytes % 13 % Monocytes % 8 % Eosinophils % 3 % Basophils % 1 % Neutrophils # 7.5 (1.3-7.7) k/uL Lymphocytes # 1.3 (1.0-4.8) k/uL Monocytes # 0.8 (0-1.0) k/uL Eosinophils # 0.3 (0-0.7) k/uL Basophils # 0.1 (0-0.2) k/uL Hypochromasia Slight PT 10.9 (9.0-12.0) sec INR 1.0 (<1.2) APTT 27.4 (22.0-30.0) sec Sodium 137 (137-145) mmol/L Potassium 4.7 (3.5-5.1) mmol/L Chloride 100 (98-107) mmol/L Carbon Dioxide 29 (22-30) mmol/L Anion Gap 8 mmol/L BUN 35 H (9-20) mg/dL Creatinine 1.09 (0.66-1.25) mg/dL Est GFR (CKD-EPI)AfAm 89 (>60 ml/min/1.73 sqM) Est GFR (CKD-EPI)NonAf 77 (>60 ml/min/1.73 sqM) Glucose 187 H (74-99) mg/dL Calcium 8.7 (8.4-10.2) mg/dL Magnesium 2.0 (1.6-2.3) mg/dL Total Bilirubin 0.5 (0.2-1.3) mg/dL AST 48 (17-59) U/L ALT 39 (4-49) U/L Alkaline Phosphatase 114 (38-126) U/L Troponin I (0.000-0.034) ng/mL NT-Pro-B Natriuret Pep pg/mL Total Protein 6.9 (6.3-8.2) g/dL Albumin 3.9 (3.5-5.0) g/dL Urine Color Urine Appearance (Clear) Urine pH (5.0-8.0) Ur Specific Haynes (1.001-1.035) Urine Protein (Negative) Urine Glucose (UA) (Negative) Urine Ketones (Negative) Urine Blood (Negative) Urine Nitrite (Negative) Urine Bilirubin (Negative) Urine Urobilinogen (<2.0) mg/dL Ur Leukocyte Esterase (Negative) 07/16/22 07/16/22 07/16/22 Range/Units 21:34 21:34 21:35 WBC (3.8-10.6) k/uL RBC (4.30-5.90) m/uL Hgb (13.0-17.5) gm/dL Hct (39.0-53.0) % MCV (80.0-100.0) fL MCH (25.0-35.0) pg MCHC (31.0-37.0) g/dL RDW (11.5-15.5) % Plt Count (150-450) k/uL MPV Neutrophils % % Lymphocytes % % Monocytes % % Eosinophils % % Basophils % % Neutrophils # (1.3-7.7) k/uL Lymphocytes # (1.0-4.8) k/uL Monocytes # (0-1.0) k/uL Eosinophils # (0-0.7) k/uL Basophils # (0-0.2) k/uL Hypochromasia PT (9.0-12.0) sec INR (<1.2) APTT (22.0-30.0) sec Sodium (137-145) mmol/L Potassium (3.5-5.1) mmol/L Chloride (98-107) mmol/L Carbon Dioxide (22-30) mmol/L Anion Gap mmol/L BUN (9-20) mg/dL Creatinine (0.66-1.25) mg/dL Est GFR (CKD-EPI)AfAm (>60 ml/min/1.73 sqM) Est GFR (CKD-EPI)NonAf (>60 ml/min/1.73 sqM) Glucose (74-99) mg/dL Calcium (8.4-10.2) mg/dL Magnesium (1.6-2.3) mg/dL Total Bilirubin (0.2-1.3) mg/dL AST (17-59) U/L ALT (4-49) U/L Alkaline Phosphatase (38-126) U/L Troponin I <0.012 (0.000-0.034) ng/mL NT-Pro-B Natriuret Pep 2100 pg/mL Total Protein (6.3-8.2) g/dL Albumin (3.5-5.0) g/dL Urine Color Light Yellow Urine Appearance Clear (Clear) Urine pH 6.0 (5.0-8.0) Ur Specific Haynes 1.011 (1.001-1.035) Urine Protein Negative (Negative) Urine Glucose (UA) Negative (Negative) Urine Ketones Negative (Negative) Urine Blood Negative (Negative) Urine Nitrite Negative (Negative) Urine Bilirubin Negative (Negative) Urine Urobilinogen <2.0 (<2.0) mg/dL Ur Leukocyte Esterase Negative (Negative) - EKG Data EKG Comments: EKG done at 2043 and interpreted independently by me and reviewed by the ED attending physician reveals sinus rhythm with a rate of 81. Normal intervals. Normal axis. No evidence of acute ST elevation or depression. When compared to the previous study from 07/06/2022 PVC has resolved. When compared to previous EKG there are: no significant change - Radiology Data Radiology results: report reviewed, image reviewed Independent interpretation of bilateral venous Doppler and chest x-ray by me reveals no evidence of acute pathology. Reviewed radiology interpretation. Disposition Clinical Impression: Chronic congestive heart failure, Dependent edema Disposition: HOME SELF-CARE Instructions (If sedation given, give patient instructions): Heart Failure (ER), Leg Edema (ED) Additional Instructions: Elevate your legs as much as possible. Call for follow-up appointment with your regular physician and your landscape foreman. You may need to have your medication doses adjusted. Is patient prescribed a controlled substance at d/c from ED?: No Referrals: Hany Rodríguez MD [Primary Care Provider] - 1-2 days Cliff Abbasi MD [STAFF PHYSICIAN] - 1-2 days Time of Disposition: 23:37
--- NOTE | 2022-07-16 21:30 | XR ---
EXAMINATION TYPE: XR chest 1V portable DATE OF EXAM: 07/16/2022 9:19 PM COMPARISON: Chest radiographs from 07/06/2022 TECHNIQUE: XR chest 1V portable Frontal view of the chest. CLINICAL INDICATION:Male, 52 years old with history of Dyspnea; FINDINGS: Lungs/Pleura: Changes bilaterally including anterior linear scarring. No new focal airspace opacity, pleural effusion, or pneumothorax. Pulmonary vascularity: Unremarkable. Heart/mediastinum: Cardiomediastinal silhouette is enlarged and stable. Bilateral hilar prominence s uggests underlying pulmonary arterial hypertension. Single-lead cardiac conduction device overlying t he left hemithorax with lead projecting over the right ventricle. Musculoskeletal: No acute osseous pathology. IMPRESSION: Chronic changes and cardiomegaly without acute process.
--- NOTE | 2022-07-16 22:07 | US ---
EXAMINATION TYPE: US venous doppler duplex LE DATE OF EXAM: 07/16/2022 10:01 PM COMPARISON: NONE CLINICAL HISTORY: No extremity edema and pain. bilateral edema and pain SIDE PERFORMED: Bilateral TECHNIQUE: The lower extremity deep venous system is examined utilizing real time linear array sonog sanjuanita with graded compression, doppler sonography and color-flow sonography. VESSELS IMAGED: Common Femoral Vein Deep Femoral Vein Greater Saphenous Vein * Femoral Vein Popliteal Vein Small Saphenous Vein * Proximal Calf Veins (* superficial vessels) Vessels were difficult to compress due to edema. Grayscale, color doppler, spectral doppler imaging performed of the deep veins of the lower extremiti es. There is normal flow, compressibility, vascular waveforms. Right Leg: No evidence of DVT Left Leg: No evidence of DVT IMPRESSION: No ultrasound evidence for deep venous thrombosis of the bilateral lower extremity.
[2022-07-16 22:24] LABS: Basophils # (A) 0.1 k/uL (0-0.2); Basophils % (A) 1 %; Eosinophils # (A) 0.3 k/uL (0-0.7); Eosinophils % (A) 3 %; HGB 14.4 gm/dL (13.0-17.5); Hypochromasia Slight; Lymphocytes # (A) 1.3 k/uL (1.0-4.8); Lymphocytes % (A) 13 %; MCH 29.5 pg (25.0-35.0); MCHC 31.9 g/dL (31.0-37.0); MCV 92.5 fL (80.0-100.0); Mean Platelet Volume 9.5; Monocytes # (A) 0.8 k/uL (0-1.0); Monocytes % (A) 8 %; Neutrophils # (A) 7.5 k/uL (1.3-7.7); Neutrophils % (A) 74 %; Platelet Count 197 k/uL (150-450); RBC 4.87 m/uL (4.30-5.90); RDW 13.6 % (11.5-15.5); WBC 10.1 k/uL (3.8-10.6)
[2022-07-16 22:29] LABS: Appearance,Urine Clear (Clear); Bilirubin,Urine Negative (Negative); Blood,Urine Negative (Negative); Color,Urine Light Yellow; Glucose,Urine (UA) Negative (Negative); Ketones,Urine Negative (Negative); Leukocyte Esterase,Urine Negative (Negative); Nitrite,Urine Negative (Negative); Protein,Urine Negative (Negative); Specific Gravity,Urine 1.011 (1.001-1.035); Urobilinogen,Urine <2.0 mg/dL (<2.0)
[2022-07-16 22:41] VITALS: BP 104/75; PULSE 77
[2022-07-16 22:42] LABS: Albumin 3.9 g/dL (3.5-5.0); Calcium 8.7 mg/dL (8.4-10.2); Potassium 4.7 mmol/L (3.5-5.1); Total Bilirubin 0.5 mg/dL (0.2-1.3); Total Protein 6.9 g/dL (6.3-8.2)
[2022-07-16 22:46] LABS: Partial Thromboplastin Time 27.4 sec (22.0-30.0); Prothrombin Time 10.9 sec (9.0-12.0)
[2022-07-16] MEDS ORDERED: MORPHINE SULFATE IR 15 MG TABLET PO ONE (23:30)
== END 2022-07-16 23:56 | disposition home or self-care (01) ==
LOC: EC 20:09 → SUPCPDRO 20:09 → EC 23:56
DX: I50.9 Heart failure, unspecified (principal); R60.9 Edema, unspecified; I11.0 Hypertensive heart disease with heart failure; J45.909 Unspecified asthma, uncomplicated; I25.2 Old myocardial infarction; E11.9 Type 2 diabetes mellitus without complications; F41.9 Anxiety disorder, unspecified; F17.200 Nicotine dependence, unspecified, uncomplicated; F12.90 Cannabis use, unspecified, uncomplicated; Z88.0 Allergy status to penicillin; Z88.8 Allergy status to other drugs, medicaments and biological substances; Z79.4 Long term (current) use of insulin
CPT/HCPCS: 36415; 93005; 83880; 80053; 83735; 84484; 85025; 85610; 85730; 81003; 71045; 93970; 99285; 96374; J1940

== ENCOUNTER 2022-11-17 21:37 | Inpatient (IN) | payer MEDICARE, OTHER ==
[2022-11-17] MEDS ORDERED: VANCOMYCIN IV PER PHARMACY 1 EACH MISC MISCELLANE PRN (22:04)
[2022-11-17] MEDS ORDERED: ACETAMINOPHEN TAB 325 MG TAB PO STA (22:04)
[2022-11-17] MEDS ORDERED: MORPHINE SULFATE 4 MG/ML SYRINGE IVP STA ×2 (22:06→23:57)
[2022-11-17] MEDS ORDERED: ONDANSETRON 4 MG/2 ML VIAL IVP STA (22:06)
[2022-11-17] MEDS ORDERED: VANCOMYCIN 1,750 MG in SODIUM CHLORIDE 0.9% 500 ML 500 ML IVPB STA (22:10)
[2022-11-17] MEDS: SODIUM CHLORIDE 0.9% 500 ML 500 ML IV SCH ×2 (22:20→22:58)
--- NOTE | 2022-11-17 22:22 | ED ---
General Adult HPI - General Chief complaint: Extremity Problem,Nontraumatic Stated complaint: R leg infection Time Seen by Provider: 11/17/22 21:58 Source: patient Mode of arrival: ambulatory Limitations: no limitations - History of Present Illness Initial comments: This is a 52-year-old male with a past medical history including hypertension, congestive heart failure and diabetes presents emergency department for right lower extremity swelling, pain and "feeling crappy." The patient stated that he has had redness in the right lower extremity over the last several months but stated over the last several days it became painful and tender to touch. The patient did state that the right posterior lower leg was tender to touch and he started to have fevers as well as an upset stomach. The patient reported associated nausea. The patient stated he came into the emergency Department because all of his symptoms became worse. The patient stated that he has not had similar episodes in the past but stated that he has been taking his medicat ions appropriately. - Related Data Home Medications Medication Instructions Recorded Confirmed Albuterol Inhaler [Ventolin Hfa 2 puff INHALATION RT-QID PRN 07/06/22 07/06/22 Inhaler] INSULIN LISPRO (humaLOG) [humaLOG] 5 - 10 unit SQ DAILY 07/06/22 07/06/22 Morphine Sulfate Ir [MSIR] 30 mg PO QID PRN 07/06/22 07/06/22 Previous Rx's Medication Instructions Recorded Budesonide/Formoterol Fumarate 1 puff INHALATION BID #10.2 gm 07/10/22 [Symbicort 160-4.5 Mcg Inhaler] Furosemide [Lasix] 60 mg PO BID #60 tablet 07/10/22 Insulin Glargine,Hum.rec.anlog 70 units SQ DAILY #0 07/10/22 [Toujeo Solostar] Ipratropium-Albuterol Nebulize 3 ml INHALATION TID #90 each 07/10/22 [Duoneb 0.5 mg-3 mg/3 ml Soln] Metoprolol Succinate (ER) [Toprol 50 mg PO DAILY #30 tab 07/10/22 XL] Nicotine 21Mg/24Hr Patch [Habitrol] 1 patch TRANSDERM DAILY #14 patch 07/10/22 Pantoprazole [Protonix] 40 mg PO AC-BRKFST #30 tab 07/10/22 Sacubitril/Valsartan [Entresto 24 1 each PO BID #60 tab 07/10/22 mg-26 mg Tablet] Spironolactone [Aldactone] 25 mg PO DAILY #30 tab 07/10/22 Allergies Allergy/AdvReac Type Severity Reaction Status Date / Time azithromycin Allergy Anaphylaxis Verified 07/16/22 20:37 gemfibrozil [From Lopid] Allergy Rash/Hives Verified 07/16/22 20:37 Review of Systems ROS Statement: Those systems with pertinent positive or pertinent negative responses have been documented in the HPI. ROS Other: All systems not noted in ROS Statement are negative. Past Medical History Past Medical History: Asthma, Coronary Artery Disease (CAD), Chest Pain / Angina, Heart Failure, COPD, Diabetes Mellitus, GERD/Reflux, Hyperlipidemia, Hypertension, Myocardial Infarction ([place]), Pneumonia, Sleep Apnea/CPAP/BIPAP, Supraventricular Tachycardia (SVT) Additional Past Medical History / Comment(s): Ischemic cardiomyopathy, chronic CHF, SVT, IDDM type II, KAMINI with CPAP occasionally used, chronic cervical/back pain, DJD, diabetic foot wounds x 4 months. Last Myocardial Infarction Date:: 12/11/17 History of Any Multi-Drug Resistant Organisms: MRSA Date of last positivie culture/infection: 03/10/20 MDRO Source:: MRSA TOE Past Surgical History: Adenoidectomy, AICD, Back Surgery, Cholecystectomy, EPS, Heart Catheterization, Pacemaker, Tonsillectomy Additional Past Surgical History / Comment(s): 12/10/17 cardiac cath, previous cardiac cath, 09/02/14 AICD/pacer, EGD/colonoscopy, low back surgery with fusion. Past Anesthesia/Blood Transfusion Reactions: Motion Sickness Additional Past Anesthesia/Blood Transfusion Reaction / Comment(s): Pt states he received blood with back surgery without reaction. Type of Cardiac Device: Permanent Pacemaker, AICD Device Placement Date:: 09-02-14 Past Psychological History: ADD/ADHD, Anxiety Smoking Status: Current every day smoker Past Alcohol Use History: Occasional Past Drug Use History: Marijuana - Past Family History Father Additional Family Medical History / Comment(s): Pt has not kept in close contact with his father for many yrs. Father was an alcoholic and pt believes he has from cirrhosis of the liver. Mother History Unknown: Yes Additional Family Medical History / Comment(s): Pt is not in contact with his mother or his father who he has heard had . General Exam Limitations: no limitations General appearance: alert, in no apparent distress Head exam: Present: atraumatic, normocephalic, normal inspection Eye exam: Present: normal appearance, PERRL Pupils: Present: normal accommodation ENT exam: Present: normal exam, normal oropharynx, mucous membranes moist Neck exam: Present: normal inspection, full ROM Respiratory exam: Present: normal lung sounds bilaterally Cardiovascular Exam: Present: normal rhythm, tachycardia, normal heart sounds GI/Abdominal exam: Present: soft, normal bowel sounds Extremities exam: Present: tenderness (TTP over the posterior right LE with circumferential redness and erythema, scabbed over wounds on the anterior RLE), pedal edema Back exam: Present: normal inspection, full ROM Neurological exam: Present: alert, oriented X3, CN II-XII intact Psychiatric exam: Present: normal affect, normal mood Skin exam: Present: warm, dry Course Vital Signs 11/17/22 11/17/22 11/18/22 21:53 23:01 00:24 Temperature 101.1 F H Pulse Rate 113 H 102 H 94 Respiratory 20 18 18 Rate Blood Pressure 102/86 101/74 108/60 O2 Sat by Pulse 96 95 96 Oximetry 11/18/22 01:08 Temperature 99.7 F H Pulse Rate Respiratory Rate Blood Pressure O2 Sat by Pulse Oximetry EKG Findings - EKG Comments: EKG Findings:: An EKG was obtained and was interpreted by myself showing a rate of 111, IL interval of 183, QRS duration 113 and QTC of 412. This EKG showed a sinus tachycardia with occasional PVC. There was no ST segment elevation or de pression noted. Medical Decision Making - Medical Decision Making Was pt. sent in by a medical professional or institution (, PA, STATISTICAL FINANCIAL ANALYST, urgent care, hospital, or alf...) When possible be specific @ -No Did you speak to anyone other than the patient for history (EMS, parent, family, police, friend...)? What history was obtained from this source @ -No Did you review nursing and triage notes (agree or disagree)? Why? @ -I reviewed and agree with nursing and triage notes Were old charts reviewed (outside hosp., previous admission, EMS record, old EKG, old radiological studies, urgent care reports/EKG's, alf records)? Report findings @ -No old charts were reviewed Differential Diagnosis (chest pain, altered mental status, abdominal pain women, abdominal pain men, vaginal bleeding, weakness, fever, dyspnea, syncope, headache, dizziness, GI bleed, back pain, seizure, CVA, palpatations, mental health)? @ -Right leg cellulitis, DVT, sepsis EKG interpreted by me (3pts min.). @ -As above X-rays interpreted by me (1pt min.). @ -None done CT interpreted by me (1pt min.). @ -None done U/S interpreted by me (1pt. min.). @ -Ultrasound of the right lower extremity to rule out a DVT was obtained and was interpreted by myself showing no evidence of DVT. There is prominent right inguinal lymph nodes likely reactive given a history of right calf wound. What testing was considered but not performed or refused? (CT, X-rays, U/S, labs)? Why? @ -None What meds were considered but not given or refused? Why? @ -None Did you discuss the management of the patient with other professionals (professionals i.e. , PA, STATISTICAL FINANCIAL ANALYST, lab, RT, psych nurse, social media specialist, veneer sample maker, teacher, special officer automat, pillowcase cutter)? Give summary @ -Yes, admitting team was contacted for admission Was smoking cessation discussed for >3mins.? @ -Yes Was critical care preformed (if so, how long)? @ -Yes, see above Were there social determinants of health that impacted care today? How? (Homelessness, low income, unemployed, alcoholism, drug addiction, transportation, low edu. Level, literacy, decrease access to med. care, retirement, rehab)? @ -No Was there de-escalation of care discussed even if they declined (Discuss DNR or withdrawal of care, Hospice)? DNR status @ -No What co-morbidities impacted this encounter? (DM, HTN, Smoking, COPD, CAD, Cancer, CVA, ARF, Chemo, Hep., AIDS, mental health diagnosis, sleep apnea, morbid obesity)? @ -Hypertension, CHF, diabetes Was patient admitted / discharged? Hospital course, mention meds given and route, prescriptions, significant lab abnormalities, going to OR and other pertinent info. @ -The patient was seen and evaluated in the emergency department. On physical exam, the patient was resting in bed without any acute distress. Vital signs admission were abnormal for tachycardia and a fever. Due to this in the setting of likely sepsis, sepsis protocol was obtained including laboratory workup, blood cultures and the patient was started on IV vancomycin. The patient did not receive 30 mL per KG of fluids secondary to the patient's CHF with established bilateral lower extremity edema. The patient did however receive 1 L of normal saline fluid. Due to the patient's sepsis secondary to right lower extremity cellulitis, the patient will be admitted for further workup and evaluation. The patient was agreeable to this and all his questions were answered. The patient was admitted in stable condition. Undiagnosed new problem with uncertain prognosis? @ -No Drug Therapy requiring intensive monitoring for toxicity (Heparin, Nitro, Insulin, Cardizem)? @ -No Were any procedures done? @ -No Diagnosis/symptom? @ -Sepsis, secondary to right lower extremity cellulitis Acute, or Chronic, or Acute on Chronic? @ -Acute Uncomplicated (without systemic symptoms) or Complicated (systemic symptoms)? @ -Complicated Side effects of treatment? @ -No Exacerbation, Progression, or Severe Exacerbation? @ -No Poses a threat to life or bodily function? How? (Chest pain, [place], [place], pneumonia, PE, COPD, DKA, ARF, appy, cholecystitis, CVA, Diverticulitis, Homicidal, Suicidal, threat to staff... and all critical care pts) @ -Yes, continued sepsis can lead to end organ damage and possible . - Lab Data Result diagrams: 11/17/22 22:26 11/17/22 22:26 Lab Results 11/17/22 11/17/22 11/17/22 Range/Units :26 22: 22: WBC 23.8 H (3.8-10.6) k/uL RBC 5.40 (4.30-5.90) m/uL Hgb 15.9 (13.0-17.5) gm/dL Hct 47.8 (39.0-53.0) % MCV 88.4 (80.0-100.0) fL MCH 29.5 (25.0-35.0) pg MCHC 33.4 (31.0-37.0) g/dL RDW 13.3 (11.5-15.5) % Plt Count 233 (150-450) k/uL MPV 8.1 Neutrophils % 90 % Lymphocytes % 3 % Monocytes % 6 % Eosinophils % 1 % Basophils % 0 % Neutrophils # 21.4 H (1.3-7.7) k/uL Lymphocytes # 0.6 L (1.0-4.8) k/uL Monocytes # 1.4 H (0-1.0) k/uL Eosinophils # 0.1 (0-0.7) k/uL Basophils # 0.0 (0-0.2) k/uL PT 11.8 (9.0-12.0) sec INR 1.1 (<1.2) APTT 29.0 (22.0-30.0) sec Sodium 130 L (137-145) mmol/L Potassium 4.9 (3.5-5.1) mmol/L Chloride 91 L (98-107) mmol/L Carbon Dioxide 25 (22-30) mmol/L Anion Gap 14 mmol/L BUN 40 H (9-20) mg/dL Creatinine 1.13 (0.66-1.25) mg/dL Est GFR (CKD-EPI)AfAm 86 (>60 ml/min/1.73 sqM) Est GFR (CKD-EPI)NonAf 74 (>60 ml/min/1.73 sqM) Glucose 147 H (74-99) mg/dL Plasma Lactic Acid Shane (0.7-2.0) mmol/L Calcium 9.2 (8.4-10.2) mg/dL Total Bilirubin 1.6 H (0.2-1.3) mg/dL AST 28 (17-59) U/L ALT 26 (4-49) U/L Alkaline Phosphatase 144 H (38-126) U/L Total Protein 7.6 (6.3-8.2) g/dL Albumin 4.0 (3.5-5.0) g/dL 11/17/22 Range/Units 22:26 WBC (3.8-10.6) k/uL RBC (4.30-5.90) m/uL Hgb (13.0-17.5) gm/dL Hct (39.0-53.0) % MCV (80.0-100.0) fL MCH (25.0-35.0) pg MCHC (31.0-37.0) g/dL RDW (11.5-15.5) % Plt Count (150-450) k/uL MPV Neutrophils % % Lymphocytes % % Monocytes % % Eosinophils % % Basophils % % Neutrophils # (1.3-7.7) k/uL Lymphocytes # (1.0-4.8) k/uL Monocytes # (0-1.0) k/uL Eosinophils # (0-0.7) k/uL Basophils # (0-0.2) k/uL PT (9.0-12.0) sec INR (<1.2) APTT (22.0-30.0) sec Sodium (137-145) mmol/L Potassium (3.5-5.1) mmol/L Chloride (98-107) mmol/L Carbon Dioxide (22-30) mmol/L Anion Gap mmol/L BUN (9-20) mg/dL Creatinine (0.66-1.25) mg/dL Est GFR (CKD-EPI)AfAm (>60 ml/min/1.73 sqM) Est GFR (CKD-EPI)NonAf (>60 ml/min/1.73 sqM) Glucose (74-99) mg/dL Plasma Lactic Acid Shane 1.9 (0.7-2.0) mmol/L Calcium (8.4-10.2) mg/dL Total Bilirubin (0.2-1.3) mg/dL AST (17-59) U/L ALT (4-49) U/L Alkaline Phosphatase (38-126) U/L Total Protein (6.3-8.2) g/dL Albumin (3.5-5.0) g/dL Critical Care Time Critical Care Time: Yes Total Critical Care Time: 31 Disposition Clinical Impression: Sepsis, Cellulitis Disposition: ADMITTED IP TO THIS [facility] Condition: Stable Is patient prescribed a controlled substance at d/c from ED?: No Time of Disposition: 23:00 Decision to Admit Reason: Admit from EC Decision Date: 11/17/22 Decision Time: 23:00
[2022-11-17 22:51] LABS: Calcium 9.2 mg/dL (8.4-10.2); INR 1.1 (<1.2); Potassium 4.9 mmol/L (3.5-5.1); Prothrombin Time 11.8 sec (9.0-12.0); Total Bilirubin 1.6 mg/dL (0.2-1.3); Total Protein 7.6 g/dL (6.3-8.2)
[2022-11-17 22:53] LABS: Basophils % (A) 0 %; Eosinophils # (A) 0.1 k/uL (0-0.7); Eosinophils % (A) 1 %; HCT 47.8 % (39.0-53.0); HGB 15.9 gm/dL (13.0-17.5); Lymphocytes # (A) 0.6 k/uL (1.0-4.8); Lymphocytes % (A) 3 %; MCH 29.5 pg (25.0-35.0); MCHC 33.4 g/dL (31.0-37.0); MCV 88.4 fL (80.0-100.0); Mean Platelet Volume 8.1; Monocytes # (A) 1.4 k/uL (0-1.0); Monocytes % (A) 6 %; Neutrophils # (A) 21.4 k/uL (1.3-7.7); Neutrophils % (A) 90 %; Platelet Count 233 k/uL (150-450); RDW 13.3 % (11.5-15.5); WBC 23.8 k/uL (3.8-10.6)
--- NOTE | 2022-11-17 23:08 | US ---
EXAMINATION TYPE: US venous doppler duplex LE RT DATE OF EXAM: 11/17/2022 10:56 PM COMPARISON: Lower extremity venous duplex 07/16/2022, lower extremity venous duplex 03/28/2018 CLINICAL INDICATION: Male, 52 years old with history of R/o DVT; Right calf wounds and redness. Ileana ent doesn't know if he is on blood thinners. SIDE PERFORMED: Right TECHNIQUE: The lower extremity deep venous system is examined utilizing real time linear array sonog sanjuanita with graded compression, doppler sonography and color-flow sonography. VESSELS IMAGED: Common Femoral Vein Deep Femoral Vein Greater Saphenous Vein * Femoral Vein Popliteal Vein Small Saphenous Vein * Proximal Calf Veins (* superficial vessels) Right Leg: Negative for DVT. Prominent lymph nodes visualized in groin. Grayscale, color doppler, spectral doppler imaging performed of the deep veins of the lower extremiti es. There is normal flow, compressibility, vascular waveforms. IMPRESSION: 1. No ultrasound evidence for deep vein thrombosis of the right lower extremity. 2. Prominent right inguinal lymph nodes, likely reactive given history of right calf wound.
[2022-11-18] MEDS ORDERED: ACETAMINOPHEN TAB 325 MG TAB PO PRN (02:21)
[2022-11-18] MEDS: ONDANSETRON 4 MG/2 ML VIAL IVP PRN ×4 (02:31→22:10)
[2022-11-18] MEDS: HYDROmorphone 1 MG/ML 1 ML SYRINGE IVP PRN ×6 (02:31→23:13)
[2022-11-18 05:55] LABS: Glucose,Whole Blood 159 mg/dL (70-110)
[2022-11-18] MEDS: PANTOPRAZOLE 40 MG TABLET PO SCH (06:31)
[2022-11-18] MEDS ORDERED: DEXTROSE 50% SYRINGE 50 ML IVP PRN ×4 (06:47→09:21)
[2022-11-18] MEDS ORDERED: INSULIN ASPART (NovoLOG) 100 UNIT/ML VIAL SQ SCH (07:30)
[2022-11-18] MEDS: METOPROLOL SUCCINATE (ER) 50 MG TAB.ER.24H PO SCH (07:43)
[2022-11-18] MEDS: NICOTINE 21MG/24HR PATCH TRANSDERM SCH (07:43)
[2022-11-18 07:47] LABS: Basophils # (A) 0.1 k/uL (0-0.2); Basophils % (A) 0 %; Eosinophils # (A) 0.2 k/uL (0-0.7); Eosinophils % (A) 1 %; HCT 43.4 % (39.0-53.0); Lymphocytes # (A) 1.1 k/uL (1.0-4.8); Lymphocytes % (A) 5 %; MCH 29.3 pg (25.0-35.0); MCHC 32.4 g/dL (31.0-37.0); MCV 90.4 fL (80.0-100.0); Mean Platelet Volume 8.3; Monocytes # (A) 1.6 k/uL (0-1.0); Monocytes % (A) 7 %; Neutrophils # (A) 19.4 k/uL (1.3-7.7); Neutrophils % (A) 86 %; Platelet Count 218 k/uL (150-450); RDW 13.4 % (11.5-15.5); WBC 22.7 k/uL (3.8-10.6)
[2022-11-18 08:02] LABS: African American GFR (CKD) 70 (>60 ml/min/1.73 sqM); Anion Gap 10 mmol/L; Blood Urea Nitrogen 44 mg/dL (9-20); Calcium 8.4 mg/dL (8.4-10.2); Carbon Dioxide 23 mmol/L (22-30); Chloride 97 mmol/L (98-107); Glucose 127 mg/dL (74-99); Non-African American GFR(CKD) 60 (>60 ml/min/1.73 sqM); Potassium 4.5 mmol/L (3.5-5.1); Sodium 130 mmol/L (137-145)
[2022-11-18] MEDS ORDERED: NICOTINE 21MG/24HR PATCH TRANSDERM SCH (09:00)
--- NOTE | 2022-11-18 09:21 | P.HPIM ---
History of Present Illness This is a pleasant 52 years old male with multiple medical problems as below Presents because of cellulitis Presents because of right swollen worm lower leg which he says that is been going on for about 2 weeks and got worse over the last 4 days his swelling mainly in the middle part of the right leg and there is to try to ulcers with very scant yellowish discharge from the lower wound, H ulcer is about 1-2 inch in diameter with right base. With surrounding redness swelling and tenderness. He has some mild dyspepsia and headache but denies abdominal pain, no chest pain, no dyspnea. No nausea vomiting diarrhea, no urinary complaints. Patient denies history of trauma Patient has fever of 101.1 on admission. CBC showed leukocytosis of 23,000. INR is unremarkable. Sodium 1:30. Creatinine 1.1 BUN elevated at 40. Glucose 147 and 159. Liver Enzymes not elevated. EKG: Sinus tachycardia with occasional PVCs, poor R-wave progression, low voltage, looks similar to old EKG from 07/16/2022 Ultrasound of the legs showing no evidence of DVT of the right lower extremity but there is prominent right inguinal lymph nodes Patient was started on IV vancomycin and admitted with infectious disease consult Review of Systems Review of systems CONSTITUTIONAL: No fever, no malaise, no fatigue. HEENT: No recent visual problems or hearing problems. Denied any sore throat. CARDIOVASCULAR: No orthopnea, PND, no palpitations, no syncope. PULMONARY: No shortness of breath, no cough, no hemoptysis. GASTROINTESTINAL: No diarrhea, no nausea, no vomiting, no abdominal pain. Normoactive bowel sounds. NEUROLOGICAL: No headaches, no weakness, no numbness. HEMATOLOGICAL: Denies any bleeding or petechiae. GENITOURINARY: Denies any burning micturition, frequency, or urgency. MUSCULOSKELETAL/RHEUMATOLOGICAL: Denies any joint pain, swelling, or any muscle pain. ENDOCRINE: Denies any polyuria or polydipsia. Past Medical History Past Medical History: Asthma, Coronary Artery Disease (CAD), Chest Pain / Angina, Heart Failure, COPD, Diabetes Mellitus, GERD/Reflux, Hyperlipidemia, Hypertension, Myocardial Infarction ([place]), Pneumonia, Sleep Apnea/CPAP/BIPAP, Supraventricular Tachycardia (SVT) Additional Past Medical History / Comment(s): Ischemic cardiomyopathy, chronic CHF, SVT, IDDM type II, KAMINI with CPAP occasionally used, chronic cervical/back pain, DJD, diabetic foot wounds x 4 months. Last Myocardial Infarction Date:: 12/11/17 History of Any Multi-Drug Resistant Organisms: MRSA Date of last positivie culture/infection: 03/10/20 MDRO Source:: MRSA TOE Past Surgical History: Adenoidectomy, AICD, Back Surgery, Cholecystectomy, EPS, Heart Catheterization, Pacemaker, Tonsillectomy Additional Past Surgical History / Comment(s): 12/10/17 cardiac cath, previous cardiac cath, 09/02/14 AICD/pacer, EGD/colonoscopy, low back surgery with fusion. Past Anesthesia/Blood Transfusion Reactions: Motion Sickness Additional Past Anesthesia/Blood Transfusion Reaction / Comment(s): Pt states he received blood with back surgery without reaction. Type of Cardiac Device: Permanent Pacemaker, AICD Device Placement Date:: 09-02-14 Past Psychological History: ADD/ADHD, Anxiety Smoking Status: Current every day smoker Past Alcohol Use History: Occasional Past Drug Use History: Marijuana - Past Family History Father Additional Family Medical History / Comment(s): Pt has not kept in close contact with his father for many yrs. Father was an alcoholic and pt believes he has from cirrhosis of the liver. Mother History Unknown: Yes Additional Family Medical History / Comment(s): Pt is not in contact with his mother or his father who he has heard had . Medications and Allergies Home Medications Medication Instructions Recorded Confirmed Type Albuterol Inhaler [Ventolin Hfa 2 puff INHALATION RT-QID PRN 07/06/22 07/06/22 History Inhaler] INSULIN LISPRO (humaLOG) [humaLOG] 5 - 10 unit SQ DAILY 07/06/22 11/18/22 History Morphine Sulfate Ir [MSIR] 30 mg PO QID PRN 07/06/22 11/18/22 History Budesonide/Formoterol Fumarate 1 puff INHALATION BID #10.2 gm 07/10/22 Rx [Symbicort 160-4.5 Mcg Inhaler] Furosemide [Lasix] 60 mg PO BID #60 tablet 07/10/22 11/18/22 Rx Ipratropium-Albuterol Nebulize 3 ml INHALATION TID #90 each 07/10/22 Rx [Duoneb 0.5 mg-3 mg/3 ml Soln] Metoprolol Succinate (ER) [Toprol 50 mg PO DAILY #30 tab 07/10/22 11/18/22 Rx XL] Nicotine 21Mg/24Hr Patch [Habitrol] 1 patch TRANSDERM DAILY #14 patch 07/10/22 11/18/22 Rx Pantoprazole [Protonix] 40 mg PO AC-BRKFST #30 tab 07/10/22 11/18/22 Rx Sacubitril/Valsartan [Entresto 24 1 each PO BID #60 tab 07/10/22 11/18/22 Rx mg-26 mg Tablet] Spironolactone [Aldactone] 25 mg PO DAILY #30 tab 07/10/22 11/18/22 Rx Insulin Glargine,Hum.rec.anlog 100 units SQ DAILY 11/18/22 11/18/22 History [Trudi Bailey] Allergies Allergy/AdvReac Type Severity Reaction Status Date / Time azithromycin Allergy Anaphylaxis Verified 07/16/22 20:37 gemfibrozil [From Lopid] Allergy Rash/Hives Verified 07/16/22 20:37 Physical Exam Vitals: Vital Signs Temp Pulse Pulse Resp BP BP Pulse Ox 11/18/22 07:39 99.3 F 68 19 90/60 100 11/18/22 01:26 98.4 F 99 15 128/76 97 11/18/22 01:08 99.7 F H 11/18/22 00:24 94 18 108/60 96 11/17/22 23:01 102 H 18 101/74 95 11/17/22 21:53 101.1 F H 113 H 20 102/86 96 Intake and Output 11/17/22 11/18/22 11/18/22 22:59 06:59 14:59 Output Total 0 Balance 0 Output: Urine 0 Other: Weight 108.862 kg 108.862 kg GENERAL: The patient is alert and oriented x3, not in any acute distress. Well developed, well nourished. HEENT: Pupils are round and equally reacting to light. EOMI. No scleral icterus. No conjunctival pallor. Normocephalic, atraumatic. No pharyngeal erythema. No thyromegaly. CARDIOVASCULAR: S1 and S2 present. No murmurs, rubs, or gallops. PULMONARY: Chest is clear to auscultation, no wheezing or crackles. ABDOMEN: Soft, nontender, nondistended, normoactive bowel sounds. No palpable organomegaly. MUSCULOSKELETAL: No joint swelling or deformity. -EXTREMITIES: No cyanosis, clubbing, or pedal edema. Right leg is swollen, tender and draped with 2 dried ulcers base on the front leg about 1-2 cm in diameter with scant yellowish discharge, dressing is in place NEUROLOGICAL: Gross neurological examination did not reveal any focal deficits. SKIN: No rashes. no petechiae. Results CBC & Chem 7: 11/18/22 07:18 11/18/22 07:18 Labs: Abnormal Lab Results - Last 24 Hours (Table) 11/17/22 11/17/22 11/18/22 Range/Units 22:26 22:26 05:53 WBC 23.8 H (3.8-10.6) k/uL Neutrophils # 21.4 H (1.3-7.7) k/uL Lymphocytes # 0.6 L (1.0-4.8) k/uL Monocytes # 1.4 H (0-1.0) k/uL Sodium 130 L (137-145) mmol/L Chloride 91 L (98-107) mmol/L BUN 40 H (9-20) mg/dL Glucose 147 H (74-99) mg/dL POC Glucose (mg/dL) 159 H (70-110) mg/dL Total Bilirubin 1.6 H (0.2-1.3) mg/dL Alkaline Phosphatase 144 H (38-126) U/L 11/18/22 Range/Units 07:18 WBC 22.7 H (3.8-10.6) k/uL Neutrophils # 19.4 H (1.3-7.7) k/uL Lymphocytes # (1.0-4.8) k/uL Monocytes # 1.6 H (0-1.0) k/uL Sodium (137-145) mmol/L Chloride (98-107) mmol/L BUN (9-20) mg/dL Glucose (74-99) mg/dL POC Glucose (mg/dL) (70-110) mg/dL Total Bilirubin (0.2-1.3) mg/dL Alkaline Phosphatase (38-126) U/L Thrombosis Risk Factor Assmnt - Choose All That Apply Any of the Below Risk Factors Present?: Yes Each Factor Represents 1 point: Age 41-60 years, Obesity (BMI >25) Other Risk Factors: No Other congenital or acquired thrombophilia - If yes, enter type in comment: No Thrombosis Risk Factor Assessment Total Risk Factor Score: 2 Thrombosis Risk Factor Assessment Level: Low Risk Assessment and Plan Assessment: Acute right lower leg cellulitis, diabetic ulcer Sepsis secondary to above Asthma, no acute exacerbation History of Coronary Artery Disease Chronic Heart Failure, ischemic cardiomyopathy, s/p AICD and pacemaker Nicotine dependence COPD, no acute exacerbation Diabetes Mellitus history of GERD/Reflux, Hyperlipidemia, Hypertension, History of sleep Apnea/CPAP/BIPAP History of Supraventricular Tachycardia (SVT) History of diabetic foot wound Plan: Continue with antibiotic Infectious disease consult Check hemoglobin A1c Hold entresto and SYSTOLIC BLOOD PRESSURE IMPROVED continue with Lasix We will consult vascular surgery for possible need for debridement Start normal saline 75 mL/h 24 hours and reassess monitor creatinine and check ua and bladder scan, if worsening creatinine despite fluid then we would recommend nephrology consult Labs and medication were reviewed.. Continue same treatment. Continue with symptomatic treatment. Resume home medication. Monitor labs and vitals. DVT and GI prophylaxis. Further recommendations as per clinical course of the patient DVT prophylaxis: Subcutaneous heparin GI Prophylaxis: Ppi PT/OT: Pending Prognosis is guarded
[2022-11-18] MEDS: MORPHINE SULFATE IR 15 MG TABLET PO PRN ×3 (10:11→22:36)
[2022-11-18] MEDS: HEPARIN SODIUM,PORCINE/PF 5,000 UNIT/0.5 ML SYRINGE SQ SCH ×2 (10:12→20:29)
[2022-11-18] MEDS: FUROSEMIDE 20 MG TAB PO SCH ×2 (10:12→15:58)
[2022-11-18] MEDS: FAMOTIDINE 20 MG/2 ML VIAL IV SCH ×2 (10:12→20:29)
[2022-11-18] MEDS: SODIUM CHLORIDE 0.9% 1,000 ML IV SCH ×2 (10:12→23:45)
[2022-11-18] MEDS: VANCOMYCIN 1,750 MG in SODIUM CHLORIDE 0.9% 500 ML 500 ML IVPB SCH ×2 (10:30→20:30)
[2022-11-18 10:42] LABS: Glucose,Whole Blood 226 mg/dL (70-110)
[2022-11-18] MEDS: INSULIN ASPART (NovoLOG) 100 UNIT/ML VIAL SQ SCH ×3 (11:30→20:56)
[2022-11-18 16:33] LABS: Glucose,Whole Blood 257 mg/dL (70-110)
[2022-11-18] MEDS: DULoxetine HCL 60 MG CAPSULE.DR PO SCH (20:29)
[2022-11-18 20:40] LABS: Glucose,Whole Blood 212 mg/dL (70-110)
[2022-11-18] MEDS: INSULIN DETEMIR (LEVEMIR) 100 UNIT/ML SYR SQ SCH (20:56)
--- NOTE | 2022-11-18 22:49 | P.CONS ---
History of Present Illness - Reason for Consult Consult date: 11/18/22 Sepsis Requesting physician: Fozia Lopez - Chief Complaint Right foot and leg swelling and redness X days - History of Present Illness Patient is a 52-year-old male with a past medical history significant for diabetes mellitus hypertension hyperlipidemia COPD coronary artery disease ischemic cardiomyopathy presenting to the hospital for evaluation of right lower extremity swelling pain apparently the patient having increasing swelling redness over the last few days and denies having any history of any trauma. Describing pain to lower extremity be sharp almost 7-8 out of 10 and no radiation patient did have some chills on presentation to the hospital patient did have a fever of 101.1 F patient did have a white count of 23.8 with a left shift BUN/creatinine has been mildly elevated liver enzymes are normal patient did have a lower extremity Doppler that was negative for DVT patient was started on vancomycin infectious disease was consulted for further management of antibiotic therapy Review of Systems Positive point and negatives has been mentioned in the HPI, complete review of systems was performed and all other systems are negative Past Medical History Past Medical History: Asthma, Coronary Artery Disease (CAD), Chest Pain / Angina, Heart Failure, COPD, Diabetes Mellitus, GERD/Reflux, Hyperlipidemia, Hypertension, Myocardial Infarction ([place]), Pneumonia, Sleep Apnea/CPAP/BIPAP, Supraventricular Tachycardia (SVT) Additional Past Medical History / Comment(s): Ischemic cardiomyopathy, chronic CHF, SVT, IDDM type II, KAMINI with CPAP occasionally used, chronic cervical/back pain, DJD, diabetic foot wounds x 4 months. Last Myocardial Infarction Date:: 12/11/17 History of Any Multi-Drug Resistant Organisms: MRSA Year Discovered:: 03/10/20 MDRO Source:: MRSA TOE Past Surgical History: Adenoidectomy, AICD, Back Surgery, Cholecystectomy, EPS, Heart Catheterization, Pacemaker, Tonsillectomy Additional Past Surgical History / Comment(s): 12/10/17 cardiac cath, previous cardiac cath, 09/02/14 AICD/pacer, EGD/colonoscopy, low back surgery with fusion. Past Anesthesia/Blood Transfusion Reactions: Motion Sickness Additional Past Anesthesia/Blood Transfusion Reaction / Comm: Pt states he received blood with back surgery without reaction. Type of Cardiac Device: Permanent Pacemaker, AICD Device Placement Date:: 09-02-14 Past Psychological History: ADD/ADHD, Anxiety Smoking Status: Current every day smoker Past Alcohol Use History: Occasional Past Drug Use History: Marijuana - Past Family History Father Additional Family Medical History / Comment(s): Pt has not kept in close contact with his father for many yrs. Father was an alcoholic and pt believes he has from cirrhosis of the liver. Mother History Unknown: Yes Additional Family Medical History / Comment(s): Pt is not in contact with his mother or his father who he has heard had . Medications and Allergies Home Medications Medication Instructions Recorded Confirmed Type Albuterol Inhaler [Ventolin Hfa 2 puff INHALATION RT-QID PRN 07/06/22 11/18/22 History Inhaler] INSULIN LISPRO (humaLOG) [humaLOG] See Protocol SQ ACHS PRN 07/06/22 11/18/22 History Morphine Sulfate Ir [MSIR] 30 mg PO QID PRN 07/06/22 11/18/22 History Metoprolol Succinate (ER) [Toprol 50 mg PO DAILY #30 tab 07/10/22 11/18/22 Rx XL] Spironolactone [Aldactone] 25 mg PO DAILY #30 tab 07/10/22 11/18/22 Rx DULoxetine HCL [Cymbalta] 60 mg PO BID 11/18/22 11/18/22 History Furosemide [Lasix] 80 mg PO BID 11/18/22 11/18/22 History Insulin Glargine,Hum.rec.anlog 100 units SQ BID 11/18/22 11/18/22 History [Toujeo Solostar] Sacubitril/Valsartan [Entresto 24 1 tab PO BID 11/18/22 11/18/22 History mg-26 mg Tablet] metroNIDAZOLE [Flagyl] 500 mg PO TID #90 tab 11/23/22 Rx Allergies Allergy/AdvReac Type Severity Reaction Status Date / Time azithromycin Allergy Anaphylaxis Verified 11/18/22 11:16 gemfibrozil [From Lopid] Allergy Rash/Hives Verified 11/18/22 11:16 Physical Exam Vitals: Vital Signs Temp Pulse Pulse Resp BP BP Pulse Ox 11/18/22 01:26 98.4 F 99 15 128/76 97 11/18/22 01:08 99.7 F H 11/18/22 00:24 94 18 108/60 96 11/17/22 23:01 102 H 18 101/74 95 11/17/22 21:53 101.1 F H 113 H 20 102/86 96 Intake and Output 11/17/22 11/18/22 11/18/22 22:59 06:59 14:59 Output Total 0 Balance 0 Output: Urine 0 Other: Weight 108.862 kg 108.862 kg Middle-aged male lying in bed in no distress Respiratory system unlabored breathing with diminished breath sounds Heart S1-S2 regular rhythm Abdomen soft no tenderness Right lower extremity with extensive swelling redness with a wound on the plantar aspect and surrounding callus some foul-smelling drainage Exam completed with the help of [employer] Results CBC & Chem 7: 11/23/22 04:07 11/23/22 04:07 Labs: Abnormal Lab Results - Last 24 Hours (Table) 11/17/22 11/17/22 11/18/22 Range/Units 22:26 22:26 05:53 WBC 23.8 H (3.8-10.6) k/uL Neutrophils # 21.4 H (1.3-7.7) k/uL Lymphocytes # 0.6 L (1.0-4.8) k/uL Monocytes # 1.4 H (0-1.0) k/uL Sodium 130 L (137-145) mmol/L Chloride 91 L (98-107) mmol/L BUN 40 H (9-20) mg/dL Glucose 147 H (74-99) mg/dL POC Glucose (mg/dL) 159 H (70-110) mg/dL Total Bilirubin 1.6 H (0.2-1.3) mg/dL Alkaline Phosphatase 144 H (38-126) U/L Assessment and Plan (1) Cellulitis of right leg Current Visit: Yes Status: Acute Code(s): L03.115 - CELLULITIS OF RIGHT LOWER LIMB SNOMED Code(s): 749929007 (2) Sepsis Current Visit: Yes Status: Acute Code(s): A41.9 - SEPSIS, UNSPECIFIED ORGANISM SNOMED Code(s): 84654001 Plan: 1patient was in the hospital with right lower extremity cellulitis in this patient who did have a wound on the plantar aspect of the right foot likely the source of this cellulitis and likely from gram-positive skin stacy such as strep or Staph aureus 2-marked area of the redness 3-local wound culture to guide antibiotic therapy, vascular surgery evaluation for possible debridement and deep culture 4-vancomycin pharmacy to dose with a target trough of 15 while watching kidney function and Vanco trough closely. This was a telehealth visit We will follow on clinical condition and cultures to further adjust medication if needed Thank you for this consultation we will follow the patient along with you Time with Patient: Greater than 30
[2022-11-19] MEDS ORDERED: TEMAZEPAM 15 MG CAP PO ONE (02:37)
[2022-11-19] MEDS: HYDROmorphone 1 MG/ML 1 ML SYRINGE IVP PRN ×3 (03:09→20:50)
[2022-11-19] MEDS: ONDANSETRON 4 MG/2 ML VIAL IVP PRN ×3 (03:10→19:10)
[2022-11-19 05:54] LABS: Glucose,Whole Blood 124 mg/dL (70-110)
[2022-11-19] MEDS: INSULIN ASPART (NovoLOG) 100 UNIT/ML VIAL SQ SCH ×4 (06:13→21:21)
[2022-11-19] MEDS: PANTOPRAZOLE 40 MG TABLET PO SCH (06:56)
[2022-11-19] MEDS: MORPHINE SULFATE IR 15 MG TABLET PO PRN ×2 (06:56→12:08)
[2022-11-19] MEDS: HEPARIN SODIUM,PORCINE/PF 5,000 UNIT/0.5 ML SYRINGE SQ SCH ×3 (08:27→20:24)
[2022-11-19] MEDS: FUROSEMIDE 20 MG TAB PO SCH (08:51)
[2022-11-19] MEDS: METOPROLOL SUCCINATE (ER) 50 MG TAB.ER.24H PO SCH (08:51)
[2022-11-19] MEDS: DULoxetine HCL 60 MG CAPSULE.DR PO SCH ×2 (08:51→20:14)
[2022-11-19] MEDS: NICOTINE 21MG/24HR PATCH TRANSDERM SCH (08:51)
[2022-11-19] MEDS: FAMOTIDINE 20 MG/2 ML VIAL IV SCH ×2 (09:33→20:51)
[2022-11-19 11:00] LABS: Appearance,Urine Clear (Clear); Bilirubin,Urine Negative (Negative); Blood,Urine Negative (Negative); Color,Urine Yellow; Glucose,Urine (UA) Negative (Negative); Ketones,Urine Negative (Negative); Leukocyte Esterase,Urine Negative (Negative); Nitrite,Urine Negative (Negative); PH, Urine 5.5 (5.0-8.0); Protein,Urine Trace (Negative); Specific Gravity,Urine 1.012 (1.001-1.035)
--- NOTE | 2022-11-19 11:32 | P.PN ---
Subjective Progress Note Date: 11/19/22 Principal diagnosis: Right lower extremity cellulitis Patient is a 52-year-old male with a past medical history significant for diabetes mellitus hypertension hyperlipidemia COPD coronary artery disease ischemic cardiomyopathy presenting to the hospital for evaluation of right lower extremity swelling pain, the patient been diagnosed with right lower extremity cellulitis and concerning for infected callus on the right heel On today's evaluation and that is 11/19/2022, the patient denies having any fever or any chills. Medical pain to the right lower extremity some improvement in the pain medication denies any chest pain shortness of breath or cough no abdominal pain or diarrhea Objective - Vital Signs Vital signs: Vital Signs Temp 99.2 F 11/19/22 07:07 Pulse 103 H 11/19/22 07:07 Resp 17 11/19/22 07:07 BP 98/63 11/19/22 07:07 Pulse Ox 96 11/19/22 07:07 FiO2 Intake & Output 11/18/22 11/19/22 11/19/22 18:59 06:59 18:59 Other: Voiding Method Toilet Urinal # Voids 1 1 - Exam GENERAL DESCRIPTION: Middle-age male up in bed in no distress RESPIRATORY SYSTEM: Unlabored breathing , decreased breath sounds at bases HEART: S1 S2 regular rate and rhythm , ABDOMEN: Soft , no tenderness EXTREMITIES: Right lower extremity with swelling redness some superficial ulceration from ruptured blister he did have an infected callus on the plantar aspect of the right heel with foul-smelling drainage - Labs CBC & Chem 7: 11/18/22 07:18 11/19/22 05:19 Labs: Abnormal Lab Results - Last 24 Hours (Table) 11/18/22 11/18/22 11/18/22 Range/Units 10:40 16:32 20:39 Creatinine (0.66-1.25) mg/dL POC Glucose (mg/dL) 226 H 257 H 212 H (70-110) mg/dL Hemoglobin A1c (0.0-6.0) % 11/19/22 11/19/22 11/19/22 Range/Units 05:19 05:19 05:53 Creatinine 1.55 H (0.66-1.25) mg/dL POC Glucose (mg/dL) 124 H (70-110) mg/dL Hemoglobin A1c 9.5 H (0.0-6.0) % Assessment and Plan (1) Cellulitis of right leg Current Visit: Yes Status: Acute Code(s): L03.115 - CELLULITIS OF RIGHT LOWER LIMB SNOMED Code(s): 558795618 (2) Type 2 diabetes mellitus with right diabetic foot ulcer Current Visit: No Status: Acute Code(s): E11.621 - TYPE 2 DIABETES MELLITUS WITH FOOT ULCER; L97.519 - NON-PRS CHRONIC ULCER OTH PRT RIGHT FOOT W UNSP SEVERITY SNOMED Code(s): 319874607 Plan: 1patient was in the hospital with right lower extremity cellulitis in this patient who did have a wound on the plantar aspect of the right foot likely the source of this cellulitis and likely from gram-positive skin stacy such as strep or Staph aureus 2Patient is scheduled for surgical debridement this afternoon per the nursing staff at which time deep culture should be obtained both aerobic and anaerobic 3patient to continue with the vancomycin however we'll add Unasyn while waiting for the culture to complete Time with Patient: Less than 30
[2022-11-19 11:42] LABS: Glucose,Whole Blood 191 mg/dL (70-110)
[2022-11-19] MEDS ORDERED: AMPICILLIN-SULBACTAM 3 GM in SODIUM CHLORIDE 0.9% 100 ML IVPB SCH (12:00)
--- NOTE | 2022-11-19 12:28 | XR ---
EXAMINATION TYPE: XR foot complete RT DATE OF EXAM: 11/19/2022 CLINICAL HISTORY: Focal pain and swelling. Assess for foreign body with new wound. TECHNIQUE: Frontal, lateral, and oblique images of the right foot are obtained. COMPARISON: Prior right foot x-ray April 12, 2019 FINDINGS: There is no amputation defect involving distal one third of the fifth metatarsal with some irregularity at the base of the fifth proximal phalanx probable partial amputation. There is small so ft tissue defect on oblique image possible ulcer at this level laterally with linear 5 mm density or soft tissue foreign body possible needle fragment noted. There is extensive linear lucency with ulceration along the lateral plantar surface at the midfoot le sydni in the region of the cuboid bone. No suspicious bony destruction seen at this level to suggest ac [place] osteomyelitis. Tiny inferior calcaneal spur. Some flexion in the toes. No acute displaced fracture. IMPRESSION: As above.
--- NOTE | 2022-11-19 13:21 | P.GSCN ---
History of Present Illness History of present illness: 52-year-old gentleman history of diabetes hypertension patient came with history of cellulitis of the right lower extremity and has been admitted patient has a blister formation noted on the plantar aspect of the right foot with a callus formation with some mild drainage with foul odor smell noted patient scheduled to have a I&D and deep culture. Medical history history of diabetes hype rtension Neck is supple no bruit appreciated Chest is clear good and both lungs Abdomen soft nontender Femorals are 1+ patient has some cellulitis of the lower extremity on on the plantar aspect patient has a blister formation and some callus with some drainage patient is scheduled to have a I&D of an and debridement and deep culture risk and complication discussed keep the patient nothing by mouth patient has been booked for surgery this afternoon Past Medical History Past Medical History: Asthma, Coronary Artery Disease (CAD), Chest Pain / Angina, Heart Failure, COPD, Diabetes Mellitus, GERD/Reflux, Hyperlipidemia, Hypertension, Myocardial Infarction ([place]), Pneumonia, Sleep Apnea/CPAP/BIPAP, Supraventricular Tachycardia (SVT) Additional Past Medical History / Comment(s): Ischemic cardiomyopathy, chronic CHF, SVT, IDDM type II, KAMINI with CPAP occasionally used, chronic cervical/back pain, DJD, diabetic foot wounds x 4 months. Last Myocardial Infarction Date:: 12/11/17 History of Any Multi-Drug Resistant Organisms: MRSA Year Discovered:: 03/10/20 MDRO Source:: MRSA TOE Past Surgical History: Adenoidectomy, AICD, Back Surgery, Cholecystectomy, EPS, Heart Catheterization, Pacemaker, Tonsillectomy Additional Past Surgical History / Comment(s): 12/10/17 cardiac cath, previous cardiac cath, 09/02/14 AICD/pacer, EGD/colonoscopy, low back surgery with fusion. Past Anesthesia/Blood Transfusion Reactions: Motion Sickness Additional Past Anesthesia/Blood Transfusion Reaction / Comm: Pt states he received blood with back surgery without reaction. Type of Cardiac Device: Permanent Pacemaker, AICD Device Placement Date:: 09-02-14 Past Psychological History: ADD/ADHD, Anxiety Smoking Status: Current every day smoker Past Alcohol Use History: Occasional Past Drug Use History: Marijuana - Past Family History Father Additional Family Medical History / Comment(s): Pt has not kept in close contact with his father for many yrs. Father was an alcoholic and pt believes he has from cirrhosis of the liver. Mother History Unknown: Yes Additional Family Medical History / Comment(s): Pt is not in contact with his mother or his father who he has heard had . Medications and Allergies Home Medications Medication Instructions Recorded Confirmed Type Albuterol Inhaler [Ventolin Hfa 2 puff INHALATION RT-QID PRN 07/06/22 11/18/22 History Inhaler] INSULIN LISPRO (humaLOG) [humaLOG] See Protocol SQ ACHS PRN 07/06/22 11/18/22 History Morphine Sulfate Ir [MSIR] 30 mg PO QID PRN 07/06/22 11/18/22 History Metoprolol Succinate (ER) [Toprol 50 mg PO DAILY #30 tab 07/10/22 11/18/22 Rx XL] Spironolactone [Aldactone] 25 mg PO DAILY #30 tab 07/10/22 11/18/22 Rx DULoxetine HCL [Cymbalta] 60 mg PO BID 11/18/22 11/18/22 History Furosemide [Lasix] 80 mg PO BID 11/18/22 11/18/22 History Insulin Glargine,Hum.rec.anlog 100 units SQ BID 11/18/22 11/18/22 History [Toujeo Solostar] Sacubitril/Valsartan [Entresto 24 1 tab PO BID 11/18/22 11/18/22 History mg-26 mg Tablet] Allergies Allergy/AdvReac Type Severity Reaction Status Date / Time azithromycin Allergy Anaphylaxis Verified 11/18/22 11:16 gemfibrozil [From Lopid] Allergy Rash/Hives Verified 11/18/22 11:16 Surgical - Exam Vital Signs Temp Pulse Resp BP Pulse Ox 101.1 F H 113 H 20 102/86 96 11/17/22 21:53 11/17/22 21:53 11/17/22 21:53 11/17/22 21:53 11/17/22 21:53 Results - Labs 11/18/22 07:18 11/19/22 05:19 Abnormal Lab Results - Last 24 Hours (Table) 11/18/22 11/18/22 11/19/22 Range/Units 16:32 20:39 05:19 Creatinine (0.66-1.25) mg/dL POC Glucose (mg/dL) 257 H 212 H (70-110) mg/dL Hemoglobin A1c 9.5 H (0.0-6.0) % Urine Protein (Negative) 11/19/22 11/19/22 11/19/22 Range/Units 05:19 05:53 10:45 Creatinine 1.55 H (0.66-1.25) mg/dL POC Glucose (mg/dL) 124 H (70-110) mg/dL Hemoglobin A1c (0.0-6.0) % Urine Protein Trace H (Negative) 11/19/22 Range/Units 11:41 Creatinine (0.66-1.25) mg/dL POC Glucose (mg/dL) 191 H (70-110) mg/dL Hemoglobin A1c (0.0-6.0) % Urine Protein (Negative) Microbiology - Last 24 Hours (Table) 11/18/22 15:06 Wound Culture - Preliminary Foot - Right Diabetes panel 11/19/22 11/19/22 Range/Units 05:19 05:19 Creatinine 1.55 H (0.66-1.25) mg/dL Hemoglobin A1c 9.5 H (0.0-6.0) % Pituitary panel 11/19/22 Range/Units 05:19 Creatinine 1.55 H (0.66-1.25) mg/dL Adrenal panel 11/19/22 Range/Units 05:19 Creatinine 1.55 H (0.66-1.25) mg/dL
[2022-11-19] MEDS: VANCOMYCIN 1,750 MG in SODIUM CHLORIDE 0.9% 500 ML 500 ML IVPB SCH (15:36)
[2022-11-19] MEDS: SODIUM CHLORIDE 0.9% 1,000 ML IV SCH ×2 (15:38→18:23)
[2022-11-19 16:48] LABS: Glucose,Whole Blood 126 mg/dL (70-110)
[2022-11-19] MEDS ORDERED: IV FLUID CONTINUATION 1,000 ML IV ONE (16:48)
[2022-11-19] MEDS ORDERED: ONDANSETRON 4 MG/2 ML VIAL IVP ONE (16:49)
[2022-11-19] MEDS ORDERED: FAMOTIDINE 20 MG/2 ML VIAL IVP ONE (16:49)
[2022-11-19] MEDS ORDERED: PROPOFOL 10 MG/ML 20 ML VIAL IV ONE (17:00)
[2022-11-19] MEDS ORDERED: KETAMINE 10 MG/ML 20 ML VIAL ONE (17:00)
[2022-11-19] MEDS ORDERED: MIDAZOLAM 2 MG/2 ML VIAL ONE (17:00)
[2022-11-19] MEDS ORDERED: fentaNYL (PF) 50 MCG/ML 2 ML AMP ONE (17:00)
[2022-11-19] MEDS ORDERED: LIDOCAINE 1% INJ 10MG/ML (20 ML MDV) SQ ONE ×2 (17:04→17:18)
--- NOTE | 2022-11-19 17:27 | P.PN ---
Subjective Progress Note Date: 11/19/22 This is a pleasant 52 years old male with multiple medical problems as below Presents because of cellulitis Presents because of right swollen worm lower leg which he says that is been going on for about 2 weeks and got worse over the last 4 days his swelling mainly in the middle part of the right leg and there is to try to ulcers with very scant yellowish discharge from the lower wound, H ulcer is about 1-2 inch in diameter with right base. With surrounding redness swelling and tenderness. He has some mild dyspepsia and headache but denies abdominal pain, no chest pain, no dyspnea. No nausea vomiting diarrhea, no urinary complaints. Patient denies history of trauma Patient has fever of 101.1 on admission. CBC showed leukocytosis of 23,000. INR is unremarkable. Sodium 1:30. Creatinine 1.1 BUN elevated at 40. Glucose 147 and 159. Liver Enzymes not elevated. EKG: Sinus tachycardia with occasional PVCs, poor R-wave progression, low voltage, looks similar to old EKG from 07/16/2022 Ultrasound of the legs showing no evidence of DVT of the right lower extremity but there is prominent right inguinal lymph nodes Patient was started on IV vancomycin and admitted with infectious disease consult 11/19/2022 Patient is evaluated today sitting up at the edge of the bed. He continues to report significant pain to his right lower extremity. He is receiving IV Dilaudid for this as well as his home morphine instant release pain medication. Patient underwent I&D of the right heel today with Dr. Kaur. Surgical cultures were taken. Patient had a foot xray done which is showing no amputation defect involving the distal one third of the fifth metatarsal with some irregularity at the base of the fifth proximal phalanx versus a probable partial amputation. There is also a small soft tissue defect of the oblique image possible ulcer at this level laterally. There is no bony destruction to suggest osteoarthritis the level of the lateral plantar surface at the midfoot level. He remains on IV Unasyn, IV vancomycin with infectious disease following the cultures. Patient was started on a IV fluids yesterday secondary to an increase in creatinine today is 1.55. His oral Lasix has been stopped. Blood pressure on the lower side 104/71. Review of Systems Constitutional: Denied any fatigue denied any fever. Cardio vascular: denied any chest pain, palpitations Gastrointestinal: denied any nausea, vomiting, diarrhea Pulmonary: Denied any shortness of breath cough Neurologic denied any new focal deficits All inpatient medications were reviewed and appropriate changes in these med ications as dictated in the interval history and assessment and plan. PHYSICAL EXAMINATION: GENERAL: The patient is alert and oriented x3, not in any acute distress. Well developed, well nourished. HEENT: Pupils are round and equally reacting to light. EOMI. No scleral icterus. No conjunctival pallor. Normocephalic, atraumatic. No pharyngeal erythema. No thyromegaly. CARDIOVASCULAR: S1 and S2 present. No murmurs, rubs, or gallops. PULMONARY: Scattered wheezing throughout ABDOMEN: Soft, nontender, nondistended, normoactive bowel sounds. No palpable organomegaly. MUSCULOSKELETAL: No joint swelling or deformity. EXTREMITIES: No cyanosis, clubbing, or pedal edema. NEUROLOGICAL: Gross neurological examination did not reveal any focal deficits. SKIN: Kerlex dressing intact to lower extremity. Assessment and plan Acute right lower leg cellulitis, diabetic ulcer Sepsis secondary to above Leukocytosis Acute kidney injury Hyponatremia History of Coronary Artery Disease Chronic Heart Failure, ischemic cardiomyopathy, s/p AICD and pacemaker Nicotine dependence History of COPD/ashma with no acute exacerbation Diabetes Mellitus type 2 uncontrolled with hemoglobin a1c of 9.5 history of GERD/Reflux, Hyperlipidemia, Hypertension, History of sleep Apnea/CPAP/BIPAP History of Supraventricular Tachycardia (SVT) History of diabetic foot wound GI prophylaxis DVT prophylaxis Full Code Plan Continue IV antibiotics per infectious disease Pending wound cultures Vascular surgery following making recommendations Patient is instructed IV fluids and oral Lasix has been discontinued Chest xray 2view ordered Repeat labs in AM The impression and plan of care has been dictated by Fozia Lopez, Nurse Practitioner as directed. Dr. Megan MD I have performed a history and physical examination and medical decision making of this patient, discussed the same with the dictator, and agree with the dictators assessment and plan as written, documented as a scribe. Based on total visit time, I have performed more than 50% of this visit. Objective - Vital Signs Vital signs: Vital Signs Temp 99.2 F 11/19/22 07:07 Pulse 103 H 11/19/22 07:07 Resp 17 11/19/22 07:07 BP 98/63 11/19/22 07:07 Pulse Ox 96 11/19/22 07:07 FiO2 Intake & Output 11/18/22 11/19/22 11/19/22 18:59 06:59 18:59 Other: Voiding Method Toilet Urinal # Voids 1 1 - Labs CBC & Chem 7: 11/18/22 07:18 11/19/22 05:19 Labs: Abnormal Lab Results - Last 24 Hours (Table) 11/18/22 11/18/22 11/18/22 Range/Units 10:40 16:32 20:39 Creatinine (0.66-1.25) mg/dL POC Glucose (mg/dL) 226 H 257 H 212 H (70-110) mg/dL Hemoglobin A1c (0.0-6.0) % 11/19/22 11/19/22 11/19/22 Range/Units 05:19 05:19 05:53 Creatinine 1.55 H (0.66-1.25) mg/dL POC Glucose (mg/dL) 124 H (70-110) mg/dL Hemoglobin A1c 9.5 H (0.0-6.0) % Assessment and Plan Time with Patient: Less than 30
[2022-11-19 18:03] LABS: Glucose,Whole Blood 122 mg/dL (70-110)
[2022-11-19] MEDS ORDERED: ALPRAZolam 0.25 MG TAB PO STA (19:00)
[2022-11-19] MEDS ORDERED: VANCOMYCIN TROUGH DUE 1 EACH MISC MISCELLANE ONE (20:00)
--- NOTE | 2022-11-19 20:07 | XR ---
EXAMINATION TYPE: XR chest 1V portable DATE OF EXAM: 11/19/2022 CLINICAL HISTORY: Dyspnea and wheezing. TECHNIQUE: Single AP portable frontal upright view of the chest is obtained. COMPARISON: Chest x-ray July 16, 2022 FINDINGS: Cardiomegaly with single lead pacemaker is redemonstrated. There is chronic parenchymal ch anges bilaterally without suspicious focal airspace opacity, pleural effusion, or pneumothorax seen. The osseous structures are intact. IMPRESSION: Chronic changes and cardiomegaly without acute pulmonary process.
[2022-11-19] MEDS: AMPICILLIN-SULBACTAM 3 GM in SODIUM CHLORIDE 0.9% 100 ML IVPB SCH (20:14)
[2022-11-19 20:51] LABS: Glucose,Whole Blood 127 mg/dL (70-110)
[2022-11-19] MEDS: INSULIN DETEMIR (LEVEMIR) 100 UNIT/ML SYR SQ SCH (21:23)
--- NOTE | 2022-11-20 01:47 | OP ---
OPERATIVE REPORT DATE OF SERVICE : PREOPERATIVE DIAGNOSIS: Infected wound, right heel planter aspect with blister formation. POSTOPERATIVE DIAGNOSIS: Infected wound, right heel planter aspect with blister formation. PROCEDURE: Incision and drainage of the plantar aspect of the right foot with extensive debridement involving the right foot plantar aspect. DESCRIPTION OF PROCEDURE: This patient was brought to the operating room. Under local IV sedation, incision was made on the plantar aspect of the right heel, deepened through skin, fat, and fascia. On opening the fascia, all the tissue including the subcutaneous tissue, fat, and fascia were all jet black and with purulent drainage noted. We went all the way down to the bone and all the devitalized tissue was excised, which was sent for deep culture. Hemostasis was controlled and the wound was irrigated with saline and Medihoney gel applied to the wound. The patient also has some cellulitis of the lower extremity. Silvadene cream applied to the wound with compression wrap. The measurement of the wound is 9 x 5 x 3 cm. Prognosis is guarded. This patient will need major amputation. We will continue with IV antibiotic and re-evaluate the patient tomorrow. MMODL / IJN: [id number] /
[2022-11-20] MEDS: AMPICILLIN-SULBACTAM 3 GM in SODIUM CHLORIDE 0.9% 100 ML IVPB SCH ×4 (02:53→20:11)
[2022-11-20 05:36] LABS: Glucose,Whole Blood 142 mg/dL (70-110)
[2022-11-20] MEDS: VANCOMYCIN 1,750 MG in SODIUM CHLORIDE 0.9% 500 ML 500 ML IVPB SCH (05:46)
[2022-11-20] MEDS: INSULIN ASPART (NovoLOG) 100 UNIT/ML VIAL SQ SCH ×4 (07:05→20:43)
[2022-11-20] MEDS: DULoxetine HCL 60 MG CAPSULE.DR PO SCH ×2 (07:08→20:11)
[2022-11-20] MEDS: NICOTINE 21MG/24HR PATCH TRANSDERM SCH (07:08)
[2022-11-20] MEDS: HEPARIN SODIUM,PORCINE/PF 5,000 UNIT/0.5 ML SYRINGE SQ SCH ×2 (07:08→20:11)
[2022-11-20 07:56] LABS: African American GFR (CKD) 45 (>60 ml/min/1.73 sqM); Anion Gap 14 mmol/L; Blood Urea Nitrogen 59 mg/dL (9-20); Calcium 8.3 mg/dL (8.4-10.2); Carbon Dioxide 17 mmol/L (22-30); Chloride 100 mmol/L (98-107); Glucose 130 mg/dL (74-99); Non-African American GFR(CKD) 39 (>60 ml/min/1.73 sqM); Sodium 131 mmol/L (137-145)
[2022-11-20 08:05] LABS: Potassium 5.3 mmol/L (3.5-5.1)
[2022-11-20 08:20] LABS: Magnesium 2.3 mg/dL (1.6-2.3)
[2022-11-20] MEDS: FAMOTIDINE 20 MG/2 ML VIAL IV SCH (08:39)
[2022-11-20] MEDS: HYDROmorphone 1 MG/ML 1 ML SYRINGE IVP PRN ×3 (08:42→21:33)
[2022-11-20] MEDS ORDERED: SODIUM ZIRCONIUM CYCLOSILICATE 10 GM PACKET PO ONE (09:28)
[2022-11-20 10:46] LABS: Glucose,Whole Blood 181 mg/dL (70-110)
--- NOTE | 2022-11-20 10:49 | US ---
EXAMINATION TYPE: US kidneys/renal and bladder DATE OF EXAM: 11/20/2022 COMPARISON: CT CLINICAL INDICATION: Male, 52 years old with history of ANGY; ANGY EXAM MEASUREMENTS: Right Kidney: 12.7 x 5.6 x 5.2 cm Left Kidney: 12.4 x 5.5 x 5.1 cm Right Kidney: Echogenic lesion upper/lateral pole= 1.4 x 1.4 x 1.0 cm- No evidence of hydro Left Kidney: No evidence of hydro/ "indentation" lateral mid aspect of left kidney, possible old infa rct as visualized on prior CT Bladder: Sammy Martinez distended, otherwise appeared wnl Bilateral Jets seen: No Incidental finding enlarged spleen There is no evidence for hydronephrosis at this point in time. No nephrolithiasis is seen. No caleb s are identified. The urinary bladder is anechoic. Bilateral ureteral jets are seen. IMPRESSION: Splenomegaly. Remote insult left kidney. Nonobstructing right-sided nephrolithiasis.
[2022-11-20 11:38] LABS: Basophils # (A) 0.12 X 10*3/uL (0.00-0.10); Basophils % (A) 0.6 %; Eosinophils # (A) 0.25 X 10*3/uL (0.04-0.35); Eosinophils % (A) 1.2 %; HCT 42.1 % (39.6-50.0); HGB 13.5 g/dL (13.0-17.0); Immature Grans, Automated 0.9 %; Lymphocytes # (A) 1.19 X 10*3/uL (0.90-5.00); Lymphocytes % (A) 5.8 %; MCH 29.1 pg (27.0-32.0); MCHC 32.1 g/dL (32.0-37.0); MCV 90.7 fL (80.0-97.0); Mean Platelet Volume 10.8 fL (9.5-12.2); Monocytes # (A) 1.83 X 10*3/uL (0.20-1.00); Monocytes % (A) 8.9 %; NRBC Per 100 WBC 0.1 /100 WBCS (0.0-0.0); Neutrophils # (A) 17.03 X 10*3/uL (1.80-7.70); Neutrophils % (A) 82.6 %; Platelet Count 211 X 10*3/uL (140-440); RBC 4.64 X 10*6/uL (4.40-5.60); RDW 14.4 % (11.5-14.5); WBC 20.61 X 10*3/uL (4.50-10.00)
[2022-11-20 11:39] LABS: RBC Morphology NORMAL
--- NOTE | 2022-11-20 11:39 | CDI ---
Documentation Clarification Form Date: 11/20/2022 11:28:24 AM From: Tamiko Tucker RN CCDS Phone: [phone] Admit Date: 11/18/2022 12:08:00 AM Patient Name: Ezequiel Haynes Visit Number: [id number] Discharge Date: ATTENTION: The Clinical Documentation Specialists (CDI) and [facility] Coding Staff appreciate your assistance in clarifying documentation. Please respond to the clarification below the line at the bottom and electronically sign. The CDI & [facility] Coding staff will review the response and follow-up if needed. Please note: Queries are made part of the Legal Health Record. If you have any questions, please contact the author of this message via ITS. Dr. Gisela Guzman Your patient has the documented diagnosis of unspecified chronic CHF 11/18, H&P. Additional information regarding the type, of CHF is requested. History/Risk Factors: 52-year-old male presented with right swollen warm lower leg with ulcer. Medical history: Asthma, CAD, Heart Failure, COPD, SVT, DM2 and foot wounds. 11/18, H&P. Clinical Indicators: VS/Pulse OX: 11/17 B/P 102/86; HR 113; Temp 101.1 F Oral; RR 20; SpO2 96% room air Echocardiogram Results: 07/08/2022 Severely impaired LV function with EF of less than 20% with global hypokinesia. Chest X Ray: 11/19 chronic changes and cardiomegaly without pulmonary process. Treatment: 11/18 11/19 Lasix 60mg PO BID; 11/18 11/19 Toprol XL 50mg PO Daily In your professional opinion, can you please clarify the type of CHF if known? [ x ] Chronic Systolic Heart Failure (reduced EF) [ ] Other, please specify [ ] Unable to determine (Template Last Revised: August 2020) MTDD
[2022-11-20] MEDS ORDERED: FUROSEMIDE 10 MG/ML 4 ML VIAL IV STA (12:24)
[2022-11-20] MEDS: MORPHINE SULFATE IR 15 MG TABLET PO PRN (12:44)
[2022-11-20] MEDS: ONDANSETRON 4 MG/2 ML VIAL IVP PRN (12:44)
[2022-11-20 14:28] VITALS: BMI 33.5
--- NOTE | 2022-11-20 14:53 | P.PN ---
Subjective Progress Note Date: 11/20/22 This is a pleasant 52 years old male with multiple medical problems as below Presents because of cellulitis Presents because of right swollen worm lower leg which he says that is been going on for about 2 weeks and got worse over the last 4 days his swelling mainly in the middle part of the right leg and there is to try to ulcers with very scant yellowish discharge from the lower wound, H ulcer is about 1-2 inch in diameter with right base. With surrounding redness swelling and tenderness. He has some mild dyspepsia and headache but denies abdominal pain, no chest pain, no dyspnea. No nausea vomiting diarrhea, no urinary complaints. Patient denies history of trauma Patient has fever of 101.1 on admission. CBC showed leukocytosis of 23,000. INR is unremarkable. Sodium 1:30. Creatinine 1.1 BUN elevated at 40. Glucose 147 and 159. Liver Enzymes not elevated. EKG: Sinus tachycardia with occasional PVCs, poor R-wave progression, low voltage, looks similar to old EKG from 07/16/2022 Ultrasound of the legs showing no evidence of DVT of the right lower extremity but there is prominent right inguinal lymph nodes Patient was started on IV vancomycin and admitted with infectious disease consult 11/19/2022 Patient is evaluated today sitting up at the edge of the bed. He continues to report significant pain to his right lower extremity. He is receiving IV Dilaudid for this as well as his home morphine instant release pain medication. Patient underwent I&D of the right heel today with Dr. Kaur. Surgical cultures were taken. Patient had a foot xray done which is showing no amputation defect involving the distal one third of the fifth metatarsal with some irregularity at the base of the fifth proximal phalanx versus a probable partial amputation. There is also a small soft tissue defect of the oblique image possible ulcer at this level laterally. There is no bony destruction to suggest osteoarthritis the level of the lateral plantar surface at the midfoot level. He remains on IV Unasyn, IV vancomycin with infectious disease following the cultures. Patient was started on a IV fluids yesterday secondary to an increase in creatinine today is 1.55. His oral Lasix has been stopped. Blood pressure on the lower side 104/71. 11/20/2022 Patient evaluated today resting in bed. Patient was receiving IV fluids overnight and today his creatinine is up to 1.9. He had a bladder scan done at greater than 500 and patient was able to void. He does states he usually has to walk around and stand to urinate and he cannot urinate lying down. He is unable to ambulate secondary to pain and wound of the right foot/heel. Renal ultrasound is showing no hydronephrosis there is splenomegaly, remote insult to the left kidney. There is nonobstructing right-sided nephrolisthiasis. Patient was noted to have proBNP of 8070 and did receive a dose of IV lasix. His white count is down to 20. Wound culture is showing gram negative bacilli. Review of Systems Constitutional: Denied any fatigue denied any fever. Cardio vascular: denied any chest pain, palpitations Gastrointestinal: denied any nausea, vomiting, diarrhea Pulmonary: Denied any shortness of breath cough Neurologic denied any new focal deficits All inpatient medications were reviewed and appropriate changes in these me dications as dictated in the interval history and assessment and plan. PHYSICAL EXAMINATION: GENERAL: The patient is alert and oriented x3, not in any acute distress. Well developed, well nourished. HEENT: Pupils are round and equally reacting to light. EOMI. No scleral icterus. No conjunctival pallor. Normocephalic, atraumatic. No pharyngeal erythema. No thyromegaly. CARDIOVASCULAR: S1 and S2 present. No murmurs, rubs, or gallops. PULMONARY: improved aeration ABDOMEN: Soft, nontender, nondistended, normoactive bowel sounds. No palpable organomegaly. MUSCULOSKELETAL: No joint swelling or deformity. EXTREMITIES: No cyanosis, clubbing, or pedal edema. NEUROLOGICAL: Gross neurological examination did not reveal any focal deficits. SKIN: Kerlex dressing intact to lower extremity. Assessment and plan Acute right lower leg cellulitis with sepsis present on admission, diabetic [facility] er Sepsis secondary to above Leukocytosis Acute kidney injury Hyponatremia History of Coronary Artery Disease Chronic systolic Heart Failure, ischemic cardiomyopathy, s/p AICD and pacemaker mild acute exacerbation Nicotine dependence History of COPD/ashma with no acute exacerbation Diabetes Mellitus type 2 uncontrolled with hemoglobin a1c of 9.5 history of GERD/Reflux, Hyperlipidemia, Hypertension, History of sleep Apnea/CPAP/BIPAP History of Supraventricular Tachycardia (SVT) History of diabetic foot wound GI prophylaxis DVT prophylaxis Full Code Plan Continue IV antibiotics per infectious disease Pending wound cultures Vascular surgery following making recommendations IV lasix x 1 Patient encouraged to urinate and will need to bladder scan Q6h and check post void residuals Repeat labs in AM The impression and plan of care has been dictated by Fozia Lopez, Nurse Practitioner as directed. Dr. Megan MD I have performed a history and physical examination and medical decision making of this patient, discussed the same with the dictator, and agree with the dictators assessment and plan as written, documented as a scribe. Based on total visit time, I have performed more than 50% of this visit. Objective - Vital Signs Vital signs: Vital Signs Temp 98.1 F 11/20/22 13:46 Pulse 81 11/20/22 13:46 Resp 18 11/20/22 13:46 BP 110/74 11/20/22 13:46 Pulse Ox 94 L 11/20/22 13:46 FiO2 Intake & Output 11/19/22 11/20/22 11/20/22 18:59 06:59 18:59 Intake Total 300 Output Total 375 300 0 Balance -75 -300 0 Weight 108.862 kg Intake: IV 300 Output: Urine 325 300 0 Estimated Blood Loss 50 Other: Voiding Method Toilet Toilet Urinal Urinal # Voids 2 - Labs CBC & Chem 7: 11/20/22 05:37 11/20/22 05:37 Labs: Abnormal Lab Results - Last 24 Hours (Table) 11/19/22 11/19/22 11/19/22 Range/Units 16:47 18:01 20:49 WBC (4.50-10.00) X 10*3/uL Absolute Nucleated RBC (0.00-0.00) X 10*3/uL Immature Gran # (0.00-0.04) X 10*3/uL Neutrophils # (1.80-7.70) X 10*3/uL Monocytes # (0.20-1.00) X 10*3/uL Basophils # (0.00-0.10) X 10*3/uL NRBC/100 WBC Diff (0.0-0.0) /100 WBCS Sodium (137-145) mmol/L Potassium (3.5-5.1) mmol/L Carbon Dioxide (22-30) mmol/L BUN (9-20) mg/dL Creatinine (0.66-1.25) mg/dL Glucose (74-99) mg/dL POC Glucose (mg/dL) 126 H 122 H 127 H (70-110) mg/dL Calcium (8.4-10.2) mg/dL 11/20/22 11/20/22 11/20/22 Range/Units 05:34 05:37 05:37 WBC 20.61 H (4.50-10.00) X 10*3/uL Absolute Nucleated RBC 0.03 H (0.00-0.00) X 10*3/uL Immature Gran # 0.19 H (0.00-0.04) X 10*3/uL Neutrophils # 17.03 H (1.80-7.70) X 10*3/uL Monocytes # 1.83 H (0.20-1.00) X 10*3/uL Basophils # 0.12 H (0.00-0.10) X 10*3/uL NRBC/100 WBC Diff 0.1 H (0.0-0.0) /100 WBCS Sodium 131 L (137-145) mmol/L Potassium 5.3 H (3.5-5.1) mmol/L Carbon Dioxide 17 L (22-30) mmol/L BUN 59 H (9-20) mg/dL Creatinine 1.94 H (0.66-1.25) mg/dL Glucose 130 H (74-99) mg/dL POC Glucose (mg/dL) 142 H (70-110) mg/dL Calcium 8.3 L (8.4-10.2) mg/dL 11/20/22 Range/Units 10:45 WBC (4.50-10.00) X 10*3/uL Absolute Nucleated RBC (0.00-0.00) X 10*3/uL Immature Gran # (0.00-0.04) X 10*3/uL Neutrophils # (1.80-7.70) X 10*3/uL Monocytes # (0.20-1.00) X 10*3/uL Basophils # (0.00-0.10) X 10*3/uL NRBC/100 WBC Diff (0.0-0.0) /100 WBCS Sodium (137-145) mmol/L Potassium (3.5-5.1) mmol/L Carbon Dioxide (22-30) mmol/L BUN (9-20) mg/dL Creatinine (0.66-1.25) mg/dL Glucose (74-99) mg/dL POC Glucose (mg/dL) 181 H (70-110) mg/dL Calcium (8.4-10.2) mg/dL Microbiology - Last 24 Hours (Table) 11/18/22 15:06 Gram Stain - Preliminary Foot - Right Wound Culture - Preliminary Gram Neg Bacilli 11/17/22 22:23 Blood Culture - Preliminary Blood 11/17/22 22:05 Blood Culture - Preliminary Blood Assessment and Plan Time with Patient: Less than 30
[2022-11-20 16:07] LABS: Glucose,Whole Blood 180 mg/dL (70-110)
[2022-11-20] MEDS: MAG HYDROX/AL HYDROX/SIMETH 30 ML CUP PO PRN (17:11)
[2022-11-20 20:25] LABS: Glucose,Whole Blood 182 mg/dL (70-110)
[2022-11-20] MEDS: INSULIN DETEMIR (LEVEMIR) 100 UNIT/ML SYR SQ SCH (20:43)
[2022-11-20] MEDS ORDERED: VANCOMYCIN TROUGH DUE 1 EACH MISC MISCELLANE ONE (21:00)
[2022-11-21] MEDS: ONDANSETRON 4 MG/2 ML VIAL IVP PRN (02:49)
[2022-11-21] MEDS: MORPHINE SULFATE IR 15 MG TABLET PO PRN ×3 (02:50→17:15)
[2022-11-21] MEDS: AMPICILLIN-SULBACTAM 3 GM in SODIUM CHLORIDE 0.9% 100 ML IVPB SCH ×4 (02:55→21:14)
[2022-11-21] MEDS: HYDROmorphone 1 MG/ML 1 ML SYRINGE IVP PRN ×3 (03:54→17:41)
[2022-11-21] MEDS ORDERED: VANCOMYCIN 1,750 MG in SODIUM CHLORIDE 0.9% 500 ML 500 ML IVPB SCH (05:00)
[2022-11-21] MEDS: MAG HYDROX/AL HYDROX/SIMETH 30 ML CUP PO PRN ×2 (05:20→11:16)
[2022-11-21 05:46] LABS: Glucose,Whole Blood 102 mg/dL (70-110)
[2022-11-21] MEDS: INSULIN ASPART (NovoLOG) 100 UNIT/ML VIAL SQ SCH ×7 (05:56→21:10)
[2022-11-21] MEDS: HEPARIN SODIUM,PORCINE/PF 5,000 UNIT/0.5 ML SYRINGE SQ SCH ×2 (08:18→21:15)
[2022-11-21] MEDS: NICOTINE 21MG/24HR PATCH TRANSDERM SCH (08:19)
[2022-11-21] MEDS: DULoxetine HCL 60 MG CAPSULE.DR PO SCH ×2 (08:19→21:14)
[2022-11-21] MEDS ORDERED: FAMOTIDINE 20 MG/2 ML VIAL IV SCH (09:00)
[2022-11-21 09:23] LABS: Basophils # (A) 0.11 X 10*3/uL (0.00-0.10); Basophils % (A) 0.8 %; Eosinophils # (A) 0.36 X 10*3/uL (0.04-0.35); Eosinophils % (A) 2.7 %; HCT 42.6 % (39.6-50.0); Immature Grans, Automated 1.1 %; Lymphocytes # (A) 1.02 X 10*3/uL (0.90-5.00); Lymphocytes % (A) 7.7 %; MCH 27.9 pg (27.0-32.0); MCHC 30.5 g/dL (32.0-37.0); MCV 91.4 fL (80.0-97.0); Mean Platelet Volume 10.9 fL (9.5-12.2); Monocytes # (A) 1.32 X 10*3/uL (0.20-1.00); NRBC Per 100 WBC 0 /100 WBCS (0.0-0.0); Neutrophils # (A) 10.22 X 10*3/uL (1.80-7.70); Neutrophils % (A) 77.7 %; Platelet Count 230 X 10*3/uL (140-440); RBC 4.66 X 10*6/uL (4.40-5.60); RDW 14.3 % (11.5-14.5); WBC 13.17 X 10*3/uL (4.50-10.00)
[2022-11-21 09:39] LABS: African American GFR (CKD) 60.7 (60.0-200.0); Albumin 3.2 g/dL (3.8-4.9); Albumin/Globulin Ratio 0.97 (1.60-3.17); Anion Gap 12.5 mmol/L (10.00-18.00); BUN/Creat Ratio 34.13 Ratio (12.00-20.00); Blood Urea Nitrogen 51.2 mg/dL (9.0-27.0); Calcium 8.7 mg/dL (8.7-10.3); Carbon Dioxide 23.5 mmol/L (20.0-27.5); Globulin 3.3 g/dL (1.6-3.3); Magnesium 2.3 mg/dL (1.5-2.4); Non-African American GFR(CKD) 52.4 (60.0-200.0); Potassium 4.6 mmol/L (3.5-5.5); Total Bilirubin 0.5 mg/dL (0.30-1.20); Total Protein 6.5 g/dL (6.2-8.2)
[2022-11-21 11:03] LABS: Glucose,Whole Blood 100 mg/dL (70-110)
[2022-11-21] MEDS ORDERED: hydrOXYzine HCL 25 MG TAB PO STA (11:53)
[2022-11-21] MEDS: SENNOSIDES 8.6 MG TAB PO SCH ×2 (13:18→21:20)
--- NOTE | 2022-11-21 13:47 | P.PN ---
Subjective Progress Note Date: 11/20/22 Principal diagnosis: Right lower extremity cellulitis Patient is a 52-year-old male with a past medical history significant for diabetes mellitus hypertension hyperlipidemia COPD coronary artery disease ischemic cardiomyopathy presenting to the hospital for evaluation of right lower extremity swelling pain, the patient been diagnosed with right lower extremity cellulitis and concerning for infected callus on the right heel, the patient is status post extensive debridement of the right heel wound completed on 11/19/2022 On today's evaluation and that is 11/20/2022, the patient remains to be afebrile, the patient pain to the right heel is currently controlled with the current pain medication , the patient denies any chest pain shortness of breath or cough no abdominal pain or diarrhea Objective - Vital Signs Vital signs: Vital Signs Temp 98.4 F 11/20/22 07:01 Pulse 80 11/20/22 08:42 Resp 18 11/20/22 08:42 BP 108/70 11/20/22 07:01 Pulse Ox 97 11/20/22 08:59 FiO2 Intake & Output 11/19/22 11/20/22 11/20/22 18:59 06:59 18:59 Intake Total 300 Output Total 375 300 0 Balance -75 -300 0 Intake: IV 300 Output: Urine 325 300 0 Estimated Blood Loss 50 Other: Voiding Method Toilet Toilet Urinal Urinal # Voids 2 - Exam GENERAL DESCRIPTION: Middle-age male up in bed in no distress RESPIRATORY SYSTEM: Unlabored breathing , decreased breath sounds at bases HEART: S1 S2 regular rate and rhythm , ABDOMEN: Soft , no tenderness EXTREMITIES: Right lower extremity with swelling redness some superficial ulceration from ruptured blister, the patient right heel wound is currently dressed in OR dressing - Labs CBC & Chem 7: 11/21/22 05:23 11/21/22 05:23 Labs: Abnormal Lab Results - Last 24 Hours (Table) 11/19/22 11/19/22 11/19/22 Range/Units 16:47 18:01 20:49 WBC (4.50-10.00) X 10*3/uL Absolute Nucleated RBC (0.00-0.00) X 10*3/uL Immature Gran # (0.00-0.04) X 10*3/uL Neutrophils # (1.80-7.70) X 10*3/uL Monocytes # (0.20-1.00) X 10*3/uL Basophils # (0.00-0.10) X 10*3/uL NRBC/100 WBC Diff (0.0-0.0) /100 WBCS Sodium (137-145) mmol/L Potassium (3.5-5.1) mmol/L Carbon Dioxide (22-30) mmol/L BUN (9-20) mg/dL Creatinine (0.66-1.25) mg/dL Glucose (74-99) mg/dL POC Glucose (mg/dL) 126 H 122 H 127 H (70-110) mg/dL Calcium (8.4-10.2) mg/dL 11/20/22 11/20/22 11/20/22 Range/Units 05:34 05:37 05:37 WBC 20.61 H (4.50-10.00) X 10*3/uL Absolute Nucleated RBC 0.03 H (0.00-0.00) X 10*3/uL Immature Gran # 0.19 H (0.00-0.04) X 10*3/uL Neutrophils # 17.03 H (1.80-7.70) X 10*3/uL Monocytes # 1.83 H (0.20-1.00) X 10*3/uL Basophils # 0.12 H (0.00-0.10) X 10*3/uL NRBC/100 WBC Diff 0.1 H (0.0-0.0) /100 WBCS Sodium 131 L (137-145) mmol/L Potassium 5.3 H (3.5-5.1) mmol/L Carbon Dioxide 17 L (22-30) mmol/L BUN 59 H (9-20) mg/dL Creatinine 1.94 H (0.66-1.25) mg/dL Glucose 130 H (74-99) mg/dL POC Glucose (mg/dL) 142 H (70-110) mg/dL Calcium 8.3 L (8.4-10.2) mg/dL 11/20/22 Range/Units 10:45 WBC (4.50-10.00) X 10*3/uL Absolute Nucleated RBC (0.00-0.00) X 10*3/uL Immature Gran # (0.00-0.04) X 10*3/uL Neutrophils # (1.80-7.70) X 10*3/uL Monocytes # (0.20-1.00) X 10*3/uL Basophils # (0.00-0.10) X 10*3/uL NRBC/100 WBC Diff (0.0-0.0) /100 WBCS Sodium (137-145) mmol/L Potassium (3.5-5.1) mmol/L Carbon Dioxide (22-30) mmol/L BUN (9-20) mg/dL Creatinine (0.66-1.25) mg/dL Glucose (74-99) mg/dL POC Glucose (mg/dL) 181 H (70-110) mg/dL Calcium (8.4-10.2) mg/dL Microbiology - Last 24 Hours (Table) 11/18/22 15:06 Gram Stain - Preliminary Foot - Right Wound Culture - Preliminary Gram Neg Bacilli 11/17/22 22:23 Blood Culture - Preliminary Blood 11/17/22 22:05 Blood Culture - Preliminary Blood Assessment and Plan (1) Cellulitis of right leg Current Visit: Yes Status: Acute Code(s): L03.115 - CELLULITIS OF RIGHT LOWER LIMB SNOMED Code(s): 671906505 (2) Type 2 diabetes mellitus with right diabetic foot ulcer Current Visit: No Status: Acute Code(s): E11.621 - TYPE 2 DIABETES MELLITUS WITH FOOT ULCER; L97.519 - NON-PRS CHRONIC ULCER OTH PRT RIGHT FOOT W UNSP SEVERITY SNOMED Code(s): 816343498 Plan: 1patient was in the hospital with right lower extremity cellulitis in this patient who did have a wound on the plantar aspect of the right foot likely the source of this cellulitis and likely from gram-positive skin stacy such as strep or Staph aureus 2Patient is status post surgical debridement of the right heel along with both aerobic and anaerobic cultures are currently pending 3patient to continue with the vancomycin and Unasyn while waiting for the culture to finalize
--- NOTE | 2022-11-21 13:48 | P.PN ---
Subjective Progress Note Date: 11/21/22 Principal diagnosis: Right lower extremity cellulitis Patient is a 52-year-old male with a past medical history significant for diabetes mellitus hypertension hyperlipidemia COPD coronary artery disease ischemic cardiomyopathy presenting to the hospital for evaluation of right lower extremity swelling pain, the patient been diagnosed with right lower extremity cellulitis and concerning for infected callus on the right heel, the patient is status post extensive debridement of the right heel wound completed on 11/19/2022 On today's evaluation and that is 11/21/2022, the patient continues to be afebrile, the patient pain to the right heel is currently controlled, the patient denies any chest pain shortness of breath or cough no abdominal pain or diarrhea, feeling slightly better Objective - Vital Signs Vital signs: Vital Signs Temp 98.0 F 11/21/22 07:36 Pulse 94 11/21/22 07:36 Resp 18 11/21/22 07:36 BP 113/66 11/21/22 07:36 Pulse Ox 97 11/21/22 08:27 FiO2 21 11/21/22 08:27 Intake & Output 11/20/22 11/21/22 11/21/22 18:59 06:59 18:59 Output Total 700 1020 Balance -700 -1020 Weight 108.862 kg 119.5 kg Output: Urine 700 1020 Other: Voiding Method Toilet Toilet Urinal Urinal - Exam GENERAL DESCRIPTION: Middle-age male up in bed in no distress RESPIRATORY SYSTEM: Unlabored breathing , decreased breath sounds at bases HEART: S1 S2 regular rate and rhythm , ABDOMEN: Soft , no tenderness EXTREMITIES: Right heel wound is currently dressed minimal drainage on dressing - Labs CBC & Chem 7: 11/21/22 05:23 11/21/22 05:23 Labs: Abnormal Lab Results - Last 24 Hours (Table) 11/20/22 11/20/22 11/21/22 Range/Units 16:06 20:24 05:23 WBC 13.17 H (4.50-10.00) X 10*3/uL MCHC 30.5 L (32.0-37.0) g/dL Immature Gran # 0.14 H (0.00-0.04) X 10*3/uL Neutrophils # 10.22 H (1.80-7.70) X 10*3/uL Monocytes # 1.32 H (0.20-1.00) X 10*3/uL Eosinophils # 0.36 H (0.04-0.35) X 10*3/uL Basophils # 0.11 H (0.00-0.10) X 10*3/uL BUN (9.0-27.0) mg/dL Est GFR (CKD-EPI)NonAf (60.0-200.0) BUN/Creatinine Ratio (12.00-20.00) Ratio POC Glucose (mg/dL) 180 H 182 H (70-110) mg/dL Alkaline Phosphatase (41-126) U/L Albumin (3.8-4.9) g/dL Albumin/Globulin Ratio (1.60-3.17) g/dL 11/21/22 Range/Units 05:23 WBC (4.50-10.00) X 10*3/uL MCHC (32.0-37.0) g/dL Immature Gran # (0.00-0.04) X 10*3/uL Neutrophils # (1.80-7.70) X 10*3/uL Monocytes # (0.20-1.00) X 10*3/uL Eosinophils # (0.04-0.35) X 10*3/uL Basophils # (0.00-0.10) X 10*3/uL BUN 51.2 H (9.0-27.0) mg/dL Est GFR (CKD-EPI)NonAf 52.4 L (60.0-200.0) BUN/Creatinine Ratio 34.13 H (12.00-20.00) Ratio POC Glucose (mg/dL) (70-110) mg/dL Alkaline Phosphatase 155 H (41-126) U/L Albumin 3.2 L (3.8-4.9) g/dL Albumin/Globulin Ratio 0.97 L (1.60-3.17) g/dL Microbiology - Last 24 Hours (Table) 11/18/22 15:06 Gram Stain - Final Foot - Right Wound Culture - Final Proteus vulgaris 11/17/22 22:23 Blood Culture - Preliminary Blood 11/17/22 22:05 Blood Culture - Preliminary Blood 11/19/22 17:30 Gram Stain - Preliminary Heel - Right Tissue Culture - Preliminary 11/19/22 17:30 Anaerobic Culture - Preliminary Heel - Right Assessment and Plan (1) Cellulitis of right leg Current Visit: Yes Status: Acute Code(s): L03.115 - CELLULITIS OF RIGHT LOWER LIMB SNOMED Code(s): 414742325 (2) Type 2 diabetes mellitus with right diabetic foot ulcer Current Visit: No Status: Acute Code(s): E11.621 - TYPE 2 DIABETES MELLITUS WITH FOOT ULCER; L97.519 - NON-PRS CHRONIC ULCER OTH PRT RIGHT FOOT W UNSP SEVERITY SNOMED Code(s): 465648130 Plan: 1patient was in the hospital with right lower extremity cellulitis in this patient who did have a wound on the plantar aspect of the right foot likely the source of this cellulitis and likely from gram-positive skin stacy such as strep or Staph aureus 2Patient is status post surgical debridement of the right heel along with both aerobic and anaerobic cultures are currently growing gram-negative initial culture grew Proteus which was a sensitive pathogen 3we will discontinue vancomycin and continue the patient on Unasyn , will need PICC line for outpatient IV antibiotics, discussed with the case worker
--- NOTE | 2022-11-21 15:10 | P.PN ---
Subjective Presents because of right swollen worm lower leg which he says that is been going on for about 2 weeks and got worse over the last 4 days his swelling mainly in the middle part of the right leg and there is to try to ulcers with very scant yellowish discharge from the lower wound, H ulcer is about 1-2 inch in diameter with right base. With surrounding redness swelling and tenderness. He has some mild dyspepsia and headache but denies abdominal pain, no chest pain, no dyspnea. No nausea vomiting diarrhea, no urinary complaints. Patient denies history of trauma Patient has fever of 101.1 on admission. CBC showed leukocytosis of 23,000. INR is unremarkable. Sodium 1:30. Creatinine 1.1 BUN elevated at 40. Glucose 147 and 159. Liver Enzymes not elevated. EKG: Sinus tachycardia with occasional PVCs, poor R-wave progression, low voltage, looks similar to old EKG from 07/16/2022 Ultrasound of the legs showing no evidence of DVT of the right lower extremity but there is prominent right inguinal lymph nodes Patient was started on IV vancomycin and admitted with infectious disease consult 11/19/2022 Patient is evaluated today sitting up at the edge of the bed. He continues to report significant pain to his right lower extremity. He is receiving IV Dilaudid for this as well as his home morphine instant release pain medication. Patient underwent I&D of the right heel today with Dr. Kaur. Surgical cultures were taken. Patient had a foot xray done which is showing no amputation defect involving the distal one third of the fifth metatarsal with some irregularity at the base of the fifth proximal phalanx versus a probable partial amputation. There is also a small soft tissue defect of the oblique image possible ulcer at this level laterally. There is no bony destruction to suggest osteoarthritis the level of the lateral plantar surface at the midfoot level. He remains on IV Unasyn, IV vancomycin with infectious disease following the cultures. Patient was started on a IV fluids yesterday secondary to an increase in creatinine today is 1.55. His oral Lasix has been stopped. Blood pressure on the lower side 104/71. 11/20/2022 Patient evaluated today resting in bed. Patient was receiving IV fluids overnight and today his creatinine is up to 1.9. He had a bladder scan done at greater than 500 and patient was able to void. He does states he usually has to walk around and stand to urinate and he cannot urinate lying down. He is unable to ambulate secondary to pain and wound of the right foot/heel. Renal ultrasound is showing no hydronephrosis there is splenomegaly, remote insult to the left kidney. There is nonobstructing right-sided nephrolisthiasis. Patient was noted to hav 11/21/2022 Patient admitted with diabetic wound and right leg cellulitis, wound cultures, Proteus, patient is currently covered with Unasyn which is bacteria sensitive to. IV vancomycin was discontinued he is status post I&D. ID team and vascular surgery team on the case. Also he has evidence of acute kidney injury, creatinine improving 1.9 down to 1.5. He has evidence of urinary retention but patient has been declining Munoz catheter and straight cath per staff. Started him on Flomax. 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 Cochran and he agrees He has some anxiety and atelectasis provided Active Medications Generic Name Dose Route Start Last Admin Trade Name Freq PRN Reason Stop Dose Admin Acetaminophen 650 mg 11/18/22 02:21 11/20/22 02:52 Acetaminophen Tab 325 Mg Tab PO 650 mg Q6HR PRN Administration Fever and/ or Pain Al Hydroxide/Mg Hydroxide 30 ml 11/20/22 17:00 11/21/22 11:16 Mag Hydrox/Al Hydrox/Simeth 30 Ml Cup PO 30 ml Q4HR PRN Administration GI Upset Albuterol Sulfate 2.5 mg 11/18/22 11:25 Albuterol Nebulized 2.5 Mg/3 Ml INHALATION RT-QID PRN Shortness Of Breath Al Hydroxide/Mg Hydroxide 30 0 ml 11/21/22 15:30 11/21/22 13:18 ml/ Hyoscyamine 10 ml/ PO 11/21/22 15:31 50 ml Lidocaine HCl 10 ml ONCE ONE Administration Dextrose/Water 25 ml 11/18/22 06:47 Dextrose 50% Syringe 50 Ml IVP PER PROTOCOL PRN Hypoglycemia Protocol Dextrose/Water 50 ml 11/18/22 06:47 Dextrose 50% Syringe 50 Ml IVP PER PROTOCOL PRN Hypoglycemia Protocol Duloxetine HCl 60 mg 11/18/22 21:00 11/21/22 08:19 Duloxetine Hcl 60 Mg Capsule.Dr PO 60 mg BID [facility] Administration Famotidine 20 mg 11/21/22 21:00 Famotidine 20 Mg/2 Ml Vial IV Q12HR [facility] Heparin Sodium (Porcine) 5,000 unit 11/18/22 09:00 11/21/22 08:18 Heparin Sodium,Porcine/Pf 5,000 Unit/0.5 Ml Syringe SQ 5,000 unit Q12HR [facility] Administration Hydromorphone HCl 1 mg 11/19/22 10:12 11/21/22 10:26 Hydromorphone 1 Mg/Ml 1 Ml Syringe IVP 1 mg Q6HR PRN Administration Pain Hydroxyzine HCl 25 mg 11/21/22 11:53 Hydroxyzine Hcl 25 Mg Tab PO TID PRN Itching Ampicillin Sodium/Sulbactam 100 mls @ 200 mls/hr 11/19/22 21:00 11/21/22 08:18 Sodium 3 gm/ Sodium Chloride IVPB 200 mls/hr Q6H [facility] Administration Protocol Insulin Aspart 0 unit 11/18/22 12:30 11/21/22 12:26 Insulin Aspart (Novolog) 100 Unit/Ml Vial SQ Not Given ACHS [facility] Protocol Insulin Aspart 3 unit 11/21/22 07:30 11/21/22 12:30 Insulin Aspart (Novolog) 100 Unit/Ml Vial SQ 3 unit AC-TID [facility] Administration Insulin Detemir 33 unit 11/18/22 21:00 11/20/22 20:43 Insulin Detemir (Levemir) 100 Unit/Ml Syr 0.3 unit/kg (33 unit) 33 unit SQ Administration HS [facility] Morphine Sulfate 30 mg 11/18/22 10:00 11/21/22 11:16 Morphine Sulfate Ir 15 Mg Tablet PO 30 mg QID PRN Administration Pain Nicotine 1 patch 11/18/22 09:00 11/21/22 08:19 Nicotine 21mg/24hr Patch TRANSDERM 1 patch DAILY [facility] Administration Ondansetron HCl 4 mg 11/18/22 02:21 11/21/22 02:49 Ondansetron 4 Mg/2 Ml Vial IVP 4 mg Q6HR PRN Administration Nausea And Vomiting Senna 8.6 mg 11/21/22 12:30 11/21/22 13:18 Sennosides 8.6 Mg Tab PO 8.6 mg BID [facility] Administration Tamsulosin HCl 0.4 mg 11/21/22 15:15 Tamsulosin 0.4 Mg Cap.Er.24h PO PC-BRKFST LAN Temazepam 15 mg 11/19/22 02:26 Temazepam 15 Mg Cap PO HS PRN Insomnia Objective - Vital Signs Vital signs: Vital Signs Temp 98.0 F 11/21/22 07:36 Pulse 94 11/21/22 07:36 Resp 18 11/21/22 07:36 BP 113/66 11/21/22 07:36 Pulse Ox 97 11/21/22 08:27 FiO2 21 11/21/22 08:27 Intake & Output 11/20/22 11/21/22 11/21/22 18:59 06:59 18:59 Output Total 700 1020 Balance -700 -1020 Weight 108.862 kg 119.5 kg Output: Urine 700 1020 Other: Voiding Method Toilet Toilet Urinal Urinal - Exam -GENERAL: The patient is alert and oriented x3, not in any acute distress. Obese HEENT: Pupils are round and equally reacting to light. EOMI. No scleral icterus. No conjunctival pallor. Normocephalic, atraumatic. No pharyngeal erythema. No thyromegaly. CARDIOVASCULAR: S1 and S2 present. No murmurs, rubs, or gallops. PULMONARY: Chest is clear to auscultation, no wheezing or crackles. ABDOMEN: Soft, nontender, nondistended, normoactive bowel sounds. No palpable organomegaly. MUSCULOSKELETAL: No joint swelling or deformity. -EXTREMITIES: No cyanosis, clubbing, or pedal edema. Right leg cellulitis, surgical wound clean and healing, with dressing in place, improving gradually NEUROLOGICAL: Gross neurological examination did not reveal any focal deficits. SKIN: No rashes. no petechiae. - Labs CBC & Chem 7: 11/21/22 05:23 11/21/22 05:23 Labs: Abnormal Lab Results - Last 24 Hours (Table) 11/20/22 11/20/22 11/21/22 Range/Units 16:06 20:24 05:23 WBC 13.17 H (4.50-10.00) X 10*3/uL MCHC 30.5 L (32.0-37.0) g/dL Immature Gran # 0.14 H (0.00-0.04) X 10*3/uL Neutrophils # 10.22 H (1.80-7.70) X 10*3/uL Monocytes # 1.32 H (0.20-1.00) X 10*3/uL Eosinophils # 0.36 H (0.04-0.35) X 10*3/uL Basophils # 0.11 H (0.00-0.10) X 10*3/uL BUN (9.0-27.0) mg/dL Est GFR (CKD-EPI)NonAf (60.0-200.0) BUN/Creatinine Ratio (12.00-20.00) Ratio POC Glucose (mg/dL) 180 H 182 H (70-110) mg/dL Alkaline Phosphatase (41-126) U/L Albumin (3.8-4.9) g/dL Albumin/Globulin Ratio (1.60-3.17) g/dL 11/21/22 Range/Units 05:23 WBC (4.50-10.00) X 10*3/uL MCHC (32.0-37.0) g/dL Immature Gran # (0.00-0.04) X 10*3/uL Neutrophils # (1.80-7.70) X 10*3/uL Monocytes # (0.20-1.00) X 10*3/uL Eosinophils # (0.04-0.35) X 10*3/uL Basophils # (0.00-0.10) X 10*3/uL BUN 51.2 H (9.0-27.0) mg/dL Est GFR (CKD-EPI)NonAf 52.4 L (60.0-200.0) BUN/Creatinine Ratio 34.13 H (12.00-20.00) Ratio POC Glucose (mg/dL) (70-110) mg/dL Alkaline Phosphatase 155 H (41-126) U/L Albumin 3.2 L (3.8-4.9) g/dL Albumin/Globulin Ratio 0.97 L (1.60-3.17) g/dL Microbiology - Last 24 Hours (Table) 11/18/22 15:06 Gram Stain - Final Foot - Right Wound Culture - Final Proteus vulgaris 11/17/22 22:23 Blood Culture - Preliminary Blood 11/17/22 22:05 Blood Culture - Preliminary Blood 11/19/22 17:30 Gram Stain - Preliminary Heel - Right Tissue Culture - Preliminary 11/19/22 17:30 Anaerobic Culture - Preliminary Heel - Right Assessment and Plan Assessment: Acute right lower leg cellulitis, diabetic ulcer secondary to Proteus. Status post I&D on 11/19 Sepsis secondary to above acute Kidney injury, improving secondary to urinary retention acute Urinary retention non-Compliance splenomegaly Asthma, no acute exacerbation History of Coronary Artery Disease Chronic Heart Failure, ischemic cardiomyopathy, s/p AICD and pacemaker Nicotine dependence COPD, no acute exacerbation Diabetes Mellitus history of GERD/Reflux, Hyperlipidemia, Hypertension, History of sleep Apnea/CPAP/BIPAP History of Supraventricular Tachycardia (SVT) History of diabetic foot wound Obesity with BMI of 36.7 Plan: Continue with antibiotic Unasyn, discontinue IV vancomycin Infectious disease consult Continue with Levemir 33 units sliding scale Hold entresto and SYSTOLIC BLOOD PRESSURE IMPROVED continue with Lasix , 40 mg by mouth daily ( was on Lasix 80 mg by mouth twice a day at home) monitor creatinine most likely his elevated creatinine secondary to urinary retention, patient has been refusing straight Munoz Catheter, Confirmed with the Staff start Flomax patient was informed about his enlarged spleen with recommendation to follow up with Dr. Gunderson as an outpatient and he agrees. Contact information is provided for him on discharge instructions Labs and medication were reviewed.. Continue same treatment. Continue with symptomatic treatment. Resume home medication. Monitor labs and vitals. DVT and GI prophylaxis. Further recommendations as per clinical course of the patient DVT prophylaxis: Subcutaneous heparin GI Prophylaxis: Ppi PT/OT: Pending Prognosis is guarded
[2022-11-21] MEDS: TAMSULOSIN 0.4 MG CAP.ER.24H PO SCH (15:19)
[2022-11-21] MEDS ORDERED: MAG HYDROX/AL HYDROX/SIMETH 30 ML, HYOSCYAMINE ELIXIR 10 ML, LIDOCAINE VISCOUS 2% 10 ML PO ONE ×3 (15:30)
[2022-11-21 16:42] LABS: Glucose,Whole Blood 75 mg/dL (70-110)
[2022-11-21 20:31] LABS: Glucose,Whole Blood 136 mg/dL (70-110)
[2022-11-21] MEDS: INSULIN DETEMIR (LEVEMIR) 100 UNIT/ML SYR SQ SCH (21:15)
[2022-11-21] MEDS: FAMOTIDINE 20 MG/2 ML VIAL IV SCH (21:57)
[2022-11-22] MEDS: HYDROmorphone 1 MG/ML 1 ML SYRINGE IVP PRN ×2 (00:41→12:30)
[2022-11-22] MEDS: TEMAZEPAM 15 MG CAP PO PRN (00:41)
[2022-11-22] MEDS: MAG HYDROX/AL HYDROX/SIMETH 30 ML CUP PO PRN (03:43)
[2022-11-22] MEDS: AMPICILLIN-SULBACTAM 3 GM in SODIUM CHLORIDE 0.9% 100 ML IVPB SCH ×4 (03:44→20:25)
[2022-11-22] MEDS: hydrOXYzine HCL 25 MG TAB PO PRN ×2 (03:55→16:05)
[2022-11-22] MEDS: MORPHINE SULFATE IR 15 MG TABLET PO PRN ×2 (03:55→14:47)
[2022-11-22 04:48] LABS: African American GFR (CKD) >90 (>60 ml/min/1.73 sqM); Non-African American GFR(CKD) >90 (>60 ml/min/1.73 sqM)
[2022-11-22 05:59] LABS: Glucose,Whole Blood 94 mg/dL (70-110)
[2022-11-22] MEDS: INSULIN ASPART (NovoLOG) 100 UNIT/ML VIAL SQ SCH ×7 (06:03→20:20)
--- NOTE | 2022-11-22 07:18 | PN ---
PROGRESS NOTE The patient was seen today. This patient had a right heel wound debridement done. The patient is on IV antibiotic. The wound is pretty deep. Today, we have changed the dressing with Medihoney gel. The patient has a lot of fluid drainage. We will arrange for VAC therapy tomorrow and continue with IV antibiotic. MMODL / IJN: [id number] /
[2022-11-22] MEDS: TAMSULOSIN 0.4 MG CAP.ER.24H PO SCH (08:50)
[2022-11-22] MEDS: DULoxetine HCL 60 MG CAPSULE.DR PO SCH ×2 (08:50→20:25)
[2022-11-22] MEDS: SENNOSIDES 8.6 MG TAB PO SCH ×2 (08:50→20:25)
[2022-11-22] MEDS: NICOTINE 21MG/24HR PATCH TRANSDERM SCH (08:51)
[2022-11-22] MEDS: FAMOTIDINE 20 MG/2 ML VIAL IV SCH ×2 (08:51→21:16)
[2022-11-22] MEDS: HEPARIN SODIUM,PORCINE/PF 5,000 UNIT/0.5 ML SYRINGE SQ SCH ×2 (08:51→20:25)
[2022-11-22 11:50] LABS: Glucose,Whole Blood 91 mg/dL (70-110)
[2022-11-22 16:33] LABS: Glucose,Whole Blood 88 mg/dL (70-110)
[2022-11-22 18:57] LABS: Glucose,Whole Blood 117 mg/dL (70-110)
--- NOTE | 2022-11-22 19:08 | P.PN ---
Subjective Presents because of right swollen worm lower leg which he says that is been going on for about 2 weeks and got worse over the last 4 days his swelling mainly in the middle part of the right leg and there is to try to ulcers with very scant yellowish discharge from the lower wound, H ulcer is about 1-2 inch in diameter with right base. With surrounding redness swelling and tenderness. He has some mild dyspepsia and headache but denies abdominal pain, no chest pain, no dyspnea. No nausea vomiting diarrhea, no urinary complaints. Patient denies history of trauma Patient has fever of 101.1 on admission. CBC showed leukocytosis of 23,000. INR is unremarkable. Sodium 1:30. Creatinine 1.1 BUN elevated at 40. Glucose 147 and 159. Liver Enzymes not elevated. EKG: Sinus tachycardia with occasional PVCs, poor R-wave progression, low voltage, looks similar to old EKG from 07/16/2022 Ultrasound of the legs showing no evidence of DVT of the right lower extremity but there is prominent right inguinal lymph nodes Patient was started on IV vancomycin and admitted with infectious disease consult 11/19/2022 Patient is evaluated today sitting up at the edge of the bed. He continues to report significant pain to his right lower extremity. He is receiving IV Dilaudid for this as well as his home morphine instant release pain medication. Patient underwent I&D of the right heel today with Dr. Kaur. Surgical cultures were taken. Patient had a foot xray done which is showing no amputation defect involving the distal one third of the fifth metatarsal with some irregularity at the base of the fifth proximal phalanx versus a probable partial amputation. There is also a small soft tissue defect of the oblique image possible ulcer at this level laterally. There is no bony destruction to suggest osteoarthritis the level of the lateral plantar surface at the midfoot level. He remains on IV Unasyn, IV vancomycin with infectious disease following the cultures. Patient was started on a IV fluids yesterday secondary to an increase in creatinine today is 1.55. His oral Lasix has been stopped. Blood pressure on the lower side 104/71. 11/20/2022 Patient evaluated today resting in bed. Patient was receiving IV fluids overnight and today his creatinine is up to 1.9. He had a bladder scan done at greater than 500 and patient was able to void. He does states he usually has to walk around and stand to urinate and he cannot urinate lying down. He is unable to ambulate secondary to pain and wound of the right foot/heel. Renal ultrasound is showing no hydronephrosis there is splenomegaly, remote insult to the left kidney. There is nonobstructing right-sided nephrolisthiasis. Patient was noted to [facility] 11/21/2022 Patient admitted with diabetic wound and right leg cellulitis, wound cultures, Proteus, patient is currently covered with Unasyn which is bacteria sensitive to. IV vancomycin was discontinued he is status post I&D. ID team and vascular surgery team on the case. Also he has evidence of acute kidney injury, creatinine improving 1.9 down to 1.5. He has evidence of urinary retention but patient has been declining Munoz catheter and straight cath per staff. Started him on Flomax. His glucose is controlled Levemir 33 units, hemoglobin A1c 9.5% Ultrasound is negative for DVT He has evidence of splenomegaly, patient informed with recommendation to follow up with [facility] as an outpatient Dr. Cochran and he agrees He has some anxiety and atelectasis provided 11/21/2022 Patient still treated for his right lower extremity cellulitis and diabetic foot infection in the ankle, he underwent debridement and he has deep wound. Culture is growing Proteus and to a lesser extent currently is negative for staph. He is on Unasyn. Other than that his vitals looks stable, no more fever, blood pressure is better. Creatinine is back to normal 0.9 He has some urinary retention with bladder scan 300-400, he was started on Flomax yesterday, we checked postprocedure residual today was 50 mL only, this problem was discussed with the patient and instructed to follow up with urologist as an outpatient, the contact information for is provided for him on discharge instructions and he verbalized understanding and acceptance Objective - Vital Signs Vital signs: Vital Signs Temp 98.4 F 11/22/22 07:30 Pulse 91 11/22/22 07:30 Resp 18 11/22/22 07:30 BP 107/71 11/22/22 07:30 Pulse Ox 94 L 11/22/22 07:30 FiO2 21 11/21/22 08:27 Intake & Output 11/21/22 11/22/22 11/22/22 18:59 06:59 18:59 Output Total 950 350 675 Balance -950 -350 -675 Weight 117.8 kg Output: Urine 950 350 675 Other: Voiding Method Toilet Urinal # Voids 1 - Exam -GENERAL: The patient is alert and oriented x3, not in any acute distress. Obese HEENT: Pupils are round and equally reacting to light. EOMI. No scleral icterus. No conjunctival pallor. Normocephalic, atraumatic. No pharyngeal erythema. No thyromegaly. CARDIOVASCULAR: S1 and S2 present. No murmurs, rubs, or gallops. PULMONARY: Chest is clear to auscultation, no wheezing or crackles. ABDOMEN: Soft, nontender, nondistended, normoactive bowel sounds. No palpable organomegaly. MUSCULOSKELETAL: No joint swelling or deformity. -EXTREMITIES: No cyanosis, clubbing, or pedal edema. Right leg cellulitis, surgical wound clean and healing, with dressing in place, improving gradually NEUROLOGICAL: Gross neurological examination did not reveal any focal deficits. SKIN: No rashes. no petechiae. - Labs CBC & Chem 7: 11/21/22 05:23 11/22/22 03:48 Labs: Abnormal Lab Results - Last 24 Hours (Table) 11/21/22 Range/Units 20:30 POC Glucose (mg/dL) 136 H (70-110) mg/dL Microbiology - Last 24 Hours (Table) 11/19/22 17:30 Gram Stain - Final Heel - Right Tissue Culture - Final Proteus vulgaris Coagulase Negative Staph 11/17/22 22:23 Blood Culture - Preliminary Blood 11/17/22 22:05 Blood Culture - Preliminary Blood 11/18/22 15:06 Gram Stain - Final Foot - Right Wound Culture - Final Proteus vulgaris Assessment and Plan Assessment: Acute right lower leg cellulitis, diabetic ulcer secondary to Proteus. Status post I&D on 11/19 Sepsis secondary to above acute Kidney injury, improving secondary to urinary retention. Improved acute Urinary retention. Improved non-Compliance splenomegaly Asthma, no acute exacerbation History of Coronary Artery Disease Chronic Heart Failure, ischemic cardiomyopathy, s/p AICD and pacemaker Nicotine dependence COPD, no acute exacerbation Diabetes Mellitus history of GERD/Reflux, Hyperlipidemia, Hypertension, History of sleep Apnea/CPAP/BIPAP History of Supraventricular Tachycardia (SVT) History of diabetic foot wound Obesity with BMI of 36.7 Plan: Continue with antibiotic Unasyn, discontinue IV vancomycin Infectious disease consult Continue with Levemir 33 units sliding scale Hold entresto and SYSTOLIC BLOOD PRESSURE IMPROVED continue with Lasix , 40 mg by mouth daily ( was on Lasix 80 mg by mouth twice a day at home) monitor creatinine most likely his elevated creatinine secondary to urinary retention, patient has been refusing straight Munoz Catheter, Confirmed with the Staff start Flomax patient was informed about his enlarged spleen with recommendation to follow up with Dr. Gunderson as an outpatient and he agrees. Contact information is provided for him on discharge instructions Labs and medication were reviewed.. Continue same treatment. Continue with symptomatic treatment. Resume home medication. Monitor labs and vitals. DVT and GI prophylaxis. Further recommendations as per clinical course of the patient DVT prophylaxis: Subcutaneous heparin GI Prophylaxis: Ppi PT/OT: Pending Prognosis is guarded
[2022-11-22] MEDS: INSULIN DETEMIR (LEVEMIR) 100 UNIT/ML SYR SQ SCH (20:26)
[2022-11-23] MEDS: AMPICILLIN-SULBACTAM 3 GM in SODIUM CHLORIDE 0.9% 100 ML IVPB SCH ×2 (01:36→07:42)
[2022-11-23] MEDS: HYDROmorphone 1 MG/ML 1 ML SYRINGE IVP PRN ×4 (01:48→20:07)
[2022-11-23] MEDS: ONDANSETRON 4 MG/2 ML VIAL IVP PRN ×2 (03:15→10:09)
[2022-11-23 05:52] LABS: Glucose,Whole Blood 88 mg/dL (70-110)
[2022-11-23] MEDS: INSULIN ASPART (NovoLOG) 100 UNIT/ML VIAL SQ SCH ×7 (05:54→21:00)
[2022-11-23] MEDS: HEPARIN SODIUM,PORCINE/PF 5,000 UNIT/0.5 ML SYRINGE SQ SCH ×2 (07:42→20:06)
[2022-11-23] MEDS: DULoxetine HCL 60 MG CAPSULE.DR PO SCH ×2 (07:42→20:07)
[2022-11-23] MEDS: FAMOTIDINE 20 MG/2 ML VIAL IV SCH ×2 (07:42→20:06)
[2022-11-23] MEDS: SENNOSIDES 8.6 MG TAB PO SCH ×2 (07:42→20:07)
[2022-11-23] MEDS: TAMSULOSIN 0.4 MG CAP.ER.24H PO SCH (07:42)
[2022-11-23] MEDS: NICOTINE 21MG/24HR PATCH TRANSDERM SCH (07:43)
[2022-11-23] MEDS: hydrOXYzine HCL 25 MG TAB PO PRN (08:53)
--- NOTE | 2022-11-23 08:57 | PN ---
PROGRESS NOTE This patient has a wound on the heel area where we did the extensive debridement. The patient is on IV antibiotic and we have been using extracellular. We have changed to wound VAC with continuous pressure, and continue with IV antibiotic. Dr. Santoyo from Infectious Disease will cover me Saturday and Saturday. JESSICA / FERNANDA: [id number] /
[2022-11-23 09:31] LABS: African American GFR (CKD) 88.4 (60.0-200.0); Anion Gap 8.2 mmol/L (10.00-18.00); Blood Urea Nitrogen 23.1 mg/dL (9.0-27.0); Calcium 8.4 mg/dL (8.7-10.3); Carbon Dioxide 26.8 mmol/L (20.0-27.5); Non-African American GFR(CKD) 76.2 (60.0-200.0); Potassium 5.1 mmol/L (3.5-5.5)
[2022-11-23] MEDS: FUROSEMIDE 80 MG TAB PO SCH ×2 (09:47→16:47)
[2022-11-23 09:48] LABS: Basophils # (A) 0.08 X 10*3/uL (0.00-0.10); Basophils % (A) 0.8 %; Eosinophils # (A) 0.28 X 10*3/uL (0.04-0.35); Eosinophils % (A) 2.9 %; HCT 38.8 % (39.6-50.0); HGB 12.4 g/dL (13.0-17.0); Immature Grans, Automated 1.2 %; Lymphocytes # (A) 1.35 X 10*3/uL (0.90-5.00); MCH 28.6 pg (27.0-32.0); MCV 89.6 fL (80.0-97.0); Mean Platelet Volume 11.4 fL (9.5-12.2); Monocytes # (A) 1.11 X 10*3/uL (0.20-1.00); Monocytes % (A) 11.5 %; NRBC Per 100 WBC 0 /100 WBCS (0.0-0.0); Neutrophils % (A) 69.6 %; Platelet Count 184 X 10*3/uL (140-440); RBC 4.33 X 10*6/uL (4.40-5.60); RDW 14.5 % (11.5-14.5); WBC 9.64 X 10*3/uL (4.50-10.00)
[2022-11-23 10:14] LABS: INR 1.1 (<1.2); Prothrombin Time 11.6 sec (9.0-12.0)
[2022-11-23 11:50] LABS: Glucose,Whole Blood 144 mg/dL (70-110)
[2022-11-23] MEDS ORDERED: polyethylene glycoL 3350 17 GM POWD.PACK PO STA (12:33)
[2022-11-23] MEDS: ALBUTEROL NEBULIZED 2.5 MG/3 ML INHALATION PRN ×2 (12:41→16:34)
--- NOTE | 2022-11-23 15:17 | P.PN ---
Subjective Progress Note Date: 11/22/22 Principal diagnosis: Right lower extremity cellulitis Patient is a 52-year-old male with a past medical history significant for diabetes mellitus hypertension hyperlipidemia COPD coronary artery disease ischemic cardiomyopathy presenting to the hospital for evaluation of right lower extremity swelling pain, the patient been diagnosed with right lower extremity cellulitis and concerning for infected callus on the right heel, the patient is status post extensive debridement of the right heel wound completed on 11/19/2022 On today's evaluation and that is 11/22/2022, the patient remains to be afebrile, the patient pain to the right foot wound area is currently controlled, the patient denies any chest pain shortness of breath or cough no abdominal pain or diarrhea, feeling slightly better Objective - Vital Signs Vital signs: Vital Signs Temp 98.4 F 11/22/22 07:30 Pulse 91 11/22/22 07:30 Resp 18 11/22/22 07:30 BP 107/71 11/22/22 07:30 Pulse Ox 94 L 11/22/22 07:30 FiO2 21 11/21/22 08:27 Intake & Output 11/21/22 11/22/22 11/22/22 18:59 06:59 18:59 Output Total 950 350 675 Balance -950 -350 -675 Weight 117.8 kg Output: Urine 950 350 675 Other: Voiding Method Toilet Urinal # Voids 1 - Exam GENERAL DESCRIPTION: Middle-age male up in bed in no distress RESPIRATORY SYSTEM: Unlabored breathing , decreased breath sounds at bases HEART: S1 S2 regular rate and rhythm , ABDOMEN: Soft , no tenderness EXTREMITIES: Extensive right foot plantar wound with no slough tissue or foul-smelling drainage - Labs CBC & Chem 7: 11/23/22 04:07 11/23/22 04:07 Labs: Abnormal Lab Results - Last 24 Hours (Table) 11/21/22 Range/Units 20:30 POC Glucose (mg/dL) 136 H (70-110) mg/dL Microbiology - Last 24 Hours (Table) 11/19/22 17:30 Gram Stain - Final Heel - Right Tissue Culture - Final Proteus vulgaris Coagulase Negative Staph 11/17/22 22:23 Blood Culture - Preliminary Blood 11/17/22 22:05 Blood Culture - Preliminary Blood 11/18/22 15:06 Gram Stain - Final Foot - Right Wound Culture - Final Proteus vulgaris Assessment and Plan (1) Cellulitis of right leg Current Visit: Yes Status: Acute Code(s): L03.115 - CELLULITIS OF RIGHT LOWER LIMB SNOMED Code(s): 019743730 (2) Type 2 diabetes mellitus with right diabetic foot ulcer Current Visit: No Status: Acute Code(s): E11.621 - TYPE 2 DIABETES MELLITUS WITH FOOT ULCER; L97.519 - NON-PRS CHRONIC ULCER OTH PRT RIGHT FOOT W UNSP SEVERITY SNOMED Code(s): 701983715 Plan: 1patient was in the hospital with right lower extremity cellulitis in this patient who did have a wound on the plantar aspect of the right foot likely the source of this cellulitis and likely from gram-positive skin stacy such as strep or Staph aureus 2Patient is status post surgical debridement of the right heel along with both aerobic and anaerobic cultures are currently growing gram-negative initial culture grew Proteus which was a sensitive pathogen 3patient to continue the patient on Unasyn , plan is for PICC line for outp atient IV antibiotics, , local wound care with the wound VAC per surgeon Time with Patient: Less than 30
--- NOTE | 2022-11-23 15:18 | P.PN ---
Subjective Progress Note Date: 11/23/22 Principal diagnosis: Right lower extremity cellulitis Patient is a 52-year-old male with a past medical history significant for diabetes mellitus hypertension hyperlipidemia COPD coronary artery disease ischemic cardiomyopathy presenting to the hospital for evaluation of right lower extremity swelling pain, the patient been diagnosed with right lower extremity cellulitis and concerning for infected callus on the right heel, the patient is status post extensive debridement of the right heel wound completed on 11/19/2022 On today's evaluation and that is 11/23/2022, the patient continues to be afebrile, the patient denies pain to the right foot wound area is currently controlled the patient denies any chest pain shortness of breath or cough no abdominal pain patient had been complaining of constipation with no bowel movement for the last few days Objective - Vital Signs Vital signs: Vital Signs Temp 99.8 F H 11/23/22 07:24 Pulse 105 H 11/23/22 07:24 Resp 21 11/23/22 07:24 BP 123/77 11/23/22 07:24 Pulse Ox 95 11/23/22 07:24 FiO2 21 11/21/22 08:27 Intake & Output 11/22/22 11/23/22 11/23/22 18:59 06:59 18:59 Intake Total 200 Output Total 900 700 375 Balance -900 -500 -375 Weight 118.5 kg Intake: Intake, IV Titration 200 Amount Ampicillin-Sulbactam 3 gm 200 In Sodium Chloride 0.9% 100 ml @ 200 mls/hr IVPB Q6H [facility] Rx#:[id number] Output: Drainage 0 Right Foot 0 Urine 900 700 375 Post Void Residual 0 Other: # Bowel Movements 1 1 - Exam GENERAL DESCRIPTION: Middle-age male up in bed in no distress RESPIRATORY SYSTEM: Unlabored breathing , decreased breath sounds at bases HEART: S1 S2 regular rate and rhythm , ABDOMEN: Soft , no tenderness EXTREMITIES: Extensive right foot plantar wound covered with a wound VAC - Labs CBC & Chem 7: 11/23/22 04:07 11/23/22 04:07 Labs: Abnormal Lab Results - Last 24 Hours (Table) 11/22/22 11/23/22 11/23/22 Range/Units 18:56 04:07 04:07 RBC 4.33 L (4.40-5.60) X 10*6/uL Hgb 12.4 L (13.0-17.0) g/dL Hct 38.8 L (39.6-50.0) % Immature Gran # 0.12 H (0.00-0.04) X 10*3/uL Monocytes # 1.11 H (0.20-1.00) X 10*3/uL Anion Gap 8.20 L (10.00-18.00) mmol/L BUN/Creatinine Ratio 21.00 H (12.00-20.00) Ratio POC Glucose (mg/dL) 117 H (70-110) mg/dL Calcium 8.4 L (8.7-10.3) mg/dL Microbiology - Last 24 Hours (Table) 11/17/22 22:23 Blood Culture - Final Blood 11/17/22 22:05 Blood Culture - Final Blood 11/19/22 17:30 Gram Stain - Final Heel - Right Tissue Culture - Final Proteus vulgaris Coagulase Negative Staph Assessment and Plan (1) Cellulitis of right leg Current Visit: Yes Status: Acute Code(s): L03.115 - CELLULITIS OF RIGHT LOWER LIMB SNOMED Code(s): 499736683 (2) Type 2 diabetes mellitus with right diabetic foot ulcer Current Visit: No Status: Acute Code(s): E11.621 - TYPE 2 DIABETES MELLITUS WITH FOOT ULCER; L97.519 - NON-PRS CHRONIC ULCER OTH PRT RIGHT FOOT W UNSP SEVERITY SNOMED Code(s): 855435772 Plan: 1patient was in the hospital with right lower extremity cellulitis in this pa tient who did have a wound on the plantar aspect of the right foot likely the source of this cellulitis and likely from gram-positive skin stacy such as strep or Staph aureus 2Patient is status post surgical debridement of the right heel along with both aerobic and anaerobic cultures are currently growing gram-negative initial culture grew Proteus which was a sensitive pathogen 3patient antibiotics will be switched to Rocephin and oral Flagyl , plan is for PICC line , outpatient antibiotics in form of Rocephin 2 g daily along with oral Flagyl local wound care with a wound VAC and close patient follow-up Time with Patient: Less than 30
--- NOTE | 2022-11-23 16:29 | P.PN ---
Subjective Presents because of right swollen worm lower leg which he says that is been going on for about 2 weeks and got worse over the last 4 days his swelling mainly in the middle part of the right leg and there is to try to ulcers with very scant yellowish discharge from the lower wound, H ulcer is about 1-2 inch in diameter with right base. With surrounding redness swelling and tenderness. He has some mild dyspepsia and headache but denies abdominal pain, no chest pain, no dyspnea. No nausea vomiting diarrhea, no urinary complaints. Patient denies history of trauma Patient has fever of 101.1 on admission. CBC showed leukocytosis of 23,000. INR is unremarkable. Sodium 1:30. Creatinine 1.1 BUN elevated at 40. Glucose 147 and 159. Liver Enzymes not elevated. EKG: Sinus tachycardia with occasional PVCs, poor R-wave progression, low voltage, looks similar to old EKG from 07/16/2022 Ultrasound of the legs showing no evidence of DVT of the right lower extremity but there is prominent right inguinal lymph nodes Patient was started on IV vancomycin and admitted with infectious disease consult 11/19/2022 Patient is evaluated today sitting up at the edge of the bed. He continues to report significant pain to his right lower extremity. He is receiving IV Dilaudid for this as well as his home morphine instant release pain medication. Patient underwent I&D of the right heel today with Dr. Kaur. Surgical cultures were taken. Patient had a foot xray done which is showing no amputation defect involving the distal one third of the fifth metatarsal with some irregularity at the base of the fifth proximal phalanx versus a probable partial amputation. There is also a small soft tissue defect of the oblique image possible ulcer at this level laterally. There is no bony destruction to suggest osteoarthritis the level of the lateral plantar surface at the midfoot level. He remains on IV Unasyn, IV vancomycin with infectious disease following the cultures. Patient was started on a IV fluids yesterday secondary to an increase in creatinine today is 1.55. His oral Lasix has been stopped. Blood pressure on the lower side 104/71. 11/20/2022 Patient evaluated today resting in bed. Patient was receiving IV fluids overnight and today his creatinine is up to 1.9. He had a bladder scan done at greater than 500 and patient was able to void. He does states he usually has to walk around and stand to urinate and he cannot urinate lying down. He is unable to ambulate secondary to pain and wound of the right foot/heel. Renal ultrasound is showing no hydronephrosis there is splenomegaly, remote insult to the left kidney. There is nonobstructing right-sided nephrolisthiasis. Patient was noted to hav 11/21/2022 Patient admitted with diabetic wound and right leg cellulitis, wound cultures, Proteus, patient is currently covered with Unasyn which is bacteria sensitive to. IV vancomycin was discontinued he is status post I&D. ID team and vascular surgery team on the case. Also he has evidence of acute kidney injury, creatinine improving 1.9 down to 1.5. He has evidence of urinary retention but patient has been declining Munoz catheter and straight cath per staff. Started him on Flomax. His glucose is controlled Levemir 33 units, hemoglobin A1c 9.5% Ultrasound is negative for DVT He has evidence of splenomegaly, patient informed with recommendation to follow up with accreditation specialist as an outpatient Dr. Cochran and he agrees He has some anxiety and atelectasis provided 11/22/2022 Patient still treated for his right lower extremity cellulitis and diabetic foot infection in the ankle, he underwent debridement and he has deep wound. Culture is growing Proteus and to a lesser extent currently is negative for staph. He is on Unasyn. Other than that his vitals looks stable, no more fever, blood pressure is better. Creatinine is back to normal 0.9 He has some urinary retention with bladder scan 300-400, he was started on Flomax yesterday, we checked postprocedure residual today was 50 mL only, this problem was discussed with the patient and instructed to follow up with urologist as an outpatient, the contact information for is provided for him on discharge instructions and he verbalized understanding and acceptance 11/23/2022 Patient status post extensive debridement of his left lower extremity infection. He has deep wound. I discussed the case with Dr. Kaur. Patient requires close medical attention and follow-up, otherwise he might lose his lower extremity. The patient still high-risk for this therefore we going to keep him in the hospital rather than discharge and follow-up outpatient. He is hemodynamically stable. Creatinine is at baseline Patient with bilateral leg swelling and patient feels bloated and asked to restart his home dose of Lasix 80 mg twice a day which is added Radha also started and dressed her with close monitoring of blood pressure and creatinine Patient constipation still bothering him, MiraLAX is added. Antibiotic was updated to ceftriaxone by ID team Objective - Vital Signs Vital signs: Vital Signs Temp 99.8 F H 11/23/22 07:24 Pulse 106 H 11/23/22 12:53 Resp 21 11/23/22 07:24 BP 123/77 11/23/22 07:24 Pulse Ox 98 11/23/22 12:45 FiO2 21 11/21/22 08:27 Intake & Output 11/22/22 11/23/22 11/23/22 18:59 06:59 18:59 Intake Total 200 Output Total 900 700 675 Balance -900 -500 -675 Weight 118.5 kg Intake: Intake, IV Titration 200 Amount Ampicillin-Sulbactam 3 gm 200 In Sodium Chloride 0.9% 100 ml @ 200 mls/hr IVPB Q6H [facility] Rx#:[id number] Output: Drainage 0 Right Foot 0 Urine 900 700 675 Post Void Residual 0 Other: # Bowel Movements 1 1 1 - Exam -GENERAL: The patient is alert and oriented x3, not in any acute distress. Obese HEENT: Pupils are round and equally reacting to light. EOMI. No scleral icterus. No conjunctival pallor. Normocephalic, atraumatic. No pharyngeal erythema. No thyromegaly. CARDIOVASCULAR: S1 and S2 present. No murmurs, rubs, or gallops. PULMONARY: Chest is clear to auscultation, no wheezing or crackles. ABDOMEN: Soft, nontender, nondistended, normoactive bowel sounds. No palpable organomegaly. MUSCULOSKELETAL: No joint swelling or deformity. -EXTREMITIES: No cyanosis, clubbing, or pedal edema. Right leg cellulitis, surgical wound clean and healing, with dressing in place, improving gradually NEUROLOGICAL: Gross neurological examination did not reveal any focal deficits. SKIN: No rashes. no petechiae. - Labs CBC & Chem 7: 11/23/22 04:07 11/23/22 04:07 Labs: Abnormal Lab Results - Last 24 Hours (Table) 11/22/22 11/23/22 11/23/22 Range/Units 18:56 04:07 04:07 RBC 4.33 L (4.40-5.60) X 10*6/uL Hgb 12.4 L (13.0-17.0) g/dL Hct 38.8 L (39.6-50.0) % Immature Gran # 0.12 H (0.00-0.04) X 10*3/uL Monocytes # 1.11 H (0.20-1.00) X 10*3/uL Anion Gap 8.20 L (10.00-18.00) mmol/L BUN/Creatinine Ratio 21.00 H (12.00-20.00) Ratio POC Glucose (mg/dL) 117 H (70-110) mg/dL Calcium 8.4 L (8.7-10.3) mg/dL 11/23/22 Range/Units 11:49 RBC (4.40-5.60) X 10*6/uL Hgb (13.0-17.0) g/dL Hct (39.6-50.0) % Immature Gran # (0.00-0.04) X 10*3/uL Monocytes # (0.20-1.00) X 10*3/uL Anion Gap (10.00-18.00) mmol/L BUN/Creatinine Ratio (12.00-20.00) Ratio POC Glucose (mg/dL) 144 H (70-110) mg/dL Calcium (8.7-10.3) mg/dL Microbiology - Last 24 Hours (Table) 11/17/22 22:23 Blood Culture - Final Blood 11/17/22 22:05 Blood Culture - Final Blood 11/19/22 17:30 Gram Stain - Final Heel - Right Tissue Culture - Final Proteus vulgaris Coagulase Negative Staph Assessment and Plan Assessment: Acute right lower leg cellulitis, diabetic ulcer secondary to Proteus. Status post I&D on 11/19 Sepsis secondary to above acute Kidney injury, improving secondary to urinary retention. Improved acute Urinary retention. Improved non-Compliance splenomegaly Asthma, no acute exacerbation History of Coronary Artery Disease Chronic Heart Failure, ischemic cardiomyopathy, s/p AICD and pacemaker Nicotine dependence COPD, no acute exacerbation Diabetes Mellitus history of GERD/Reflux, Hyperlipidemia, Hypertension, History of sleep Apnea/CPAP/BIPAP History of Supraventricular Tachycardia (SVT) History of diabetic foot wound Obesity with BMI of 36.7 Plan: Continue with antibiotic Unasyn Infectious disease consult Continue with Levemir 33 units sliding scale Hold entresto and SYSTOLIC BLOOD PRESSURE IMPROVED continue with Lasix , 40 mg by mouth daily ( was on Lasix 80 mg by mouth twice a day at home) monitor creatinine most likely his elevated creatinine secondary to urinary retention, patient has been refusing straight Munoz Catheter, Confirmed with the Staff start Flomax patient was informed about his enlarged spleen with recommendation to follow up with Dr. Gunderson as an outpatient and he agrees. Contact information is provided for him on discharge instructions Labs and medication were reviewed.. Continue same treatment. Continue with symptomatic treatment. Resume home medication. Monitor labs and vitals. DVT and GI prophylaxis. Further recommendations as per clinical course of the patient DVT prophylaxis: Subcutaneous heparin GI Prophylaxis: Ppi PT/OT: Pending Prognosis is guarded
[2022-11-23 16:52] LABS: Glucose,Whole Blood 161 mg/dL (70-110)
[2022-11-23] MEDS: MAG HYDROX/AL HYDROX/SIMETH 30 ML CUP PO PRN (16:55)
[2022-11-23 19:50] LABS: Glucose,Whole Blood 135 mg/dL (70-110)
[2022-11-23] MEDS: SACUBITRIL/VALSARTAN 24 MG-26 MG TABLET PO SCH (20:07)
[2022-11-23] MEDS: INSULIN DETEMIR (LEVEMIR) 100 UNIT/ML SYR SQ SCH (20:15)
[2022-11-24] MEDS: ONDANSETRON 4 MG/2 ML VIAL IVP PRN ×3 (00:20→17:07)
[2022-11-24] MEDS: HYDROmorphone 1 MG/ML 1 ML SYRINGE IVP PRN ×4 (01:58→21:18)
[2022-11-24] MEDS: MAG HYDROX/AL HYDROX/SIMETH 30 ML CUP PO PRN (05:43)
[2022-11-24 05:54] LABS: Glucose,Whole Blood 101 mg/dL (70-110)
[2022-11-24] MEDS: INSULIN ASPART (NovoLOG) 100 UNIT/ML VIAL SQ SCH ×7 (06:14→21:16)
[2022-11-24] MEDS: hydrOXYzine HCL 25 MG TAB PO PRN ×2 (08:20→20:20)
[2022-11-24] MEDS: TAMSULOSIN 0.4 MG CAP.ER.24H PO SCH (08:20)
[2022-11-24] MEDS: SENNOSIDES 8.6 MG TAB PO SCH ×2 (08:20→21:17)
[2022-11-24] MEDS: FAMOTIDINE 20 MG/2 ML VIAL IV SCH ×2 (08:20→21:17)
[2022-11-24] MEDS: DULoxetine HCL 60 MG CAPSULE.DR PO SCH ×2 (08:20→21:17)
[2022-11-24] MEDS: HEPARIN SODIUM,PORCINE/PF 5,000 UNIT/0.5 ML SYRINGE SQ SCH ×2 (08:20→21:26)
[2022-11-24] MEDS: SACUBITRIL/VALSARTAN 24 MG-26 MG TABLET PO SCH ×2 (08:20→21:23)
[2022-11-24] MEDS: FUROSEMIDE 80 MG TAB PO SCH ×2 (08:21→15:13)
[2022-11-24] MEDS: NICOTINE 21MG/24HR PATCH TRANSDERM SCH (08:23)
[2022-11-24] MEDS: MORPHINE SULFATE IR 15 MG TABLET PO PRN ×2 (08:24→18:23)
[2022-11-24 11:12] LABS: Glucose,Whole Blood 101 mg/dL (70-110)
[2022-11-24 16:46] LABS: Glucose,Whole Blood 135 mg/dL (70-110)
[2022-11-24 20:34] LABS: Glucose,Whole Blood 162 mg/dL (70-110)
--- NOTE | 2022-11-24 21:12 | P.PN ---
Progress Note - Text Progress Note Date: 11/24/22 Hospital course: Presents because of right swollen worm lower leg which he says that is been josue g on for about 2 weeks and got worse over the last 4 days his swelling mainly in the middle part of the right leg and there is to try to ulcers with very scant yellowish discharge from the lower wound, H ulcer is about 1-2 inch in diameter with right base. With surrounding redness swelling and tenderness. He has some mild dyspepsia and headache but denies abdominal pain, no chest pain, no dyspnea. No nausea vomiting diarrhea, no urinary complaints. Patient denies history of trauma Patient has fever of 101.1 on admission. CBC showed leukocytosis of 23,000. INR is unremarkable. Sodium 1:30. Creatinine 1.1 BUN elevated at 40. Glucose 147 and 159. Liver Enzymes not elevated. EKG: Sinus tachycardia with occasional PVCs, poor R-wave progression, low voltage, looks similar to old EKG from 07/16/2022 Ultrasound of the legs showing no evidence of DVT of the right lower extremity but there is prominent right inguinal lymph nodes Patient was started on IV vancomycin and admitted with infectious disease consult 11/19/2022 Patient is evaluated today sitting up at the edge of the bed. He continues to report significant pain to his right lower extremity. He is receiving IV Dilaudid for this as well as his home morphine instant release pain medication. Patient underwent I&D of the right heel today with Dr. Kaur. Surgical cultures were taken. Patient had a foot xray done which is showing no amputation defect involving the distal one third of the fifth metatarsal with some irregularity at the base of the fifth proximal phalanx versus a probable partial amputation. There is also a small soft tissue defect of the oblique image possible ulcer at this level laterally. There is no bony destruction to suggest osteoarthritis the level of the lateral plantar surface at the midfoot level. He remains on IV Unasyn, IV vancomycin with infectious disease following the cultures. Patient was started on a IV fluids yesterday secondary to an increase in creatinine today is 1.55. His oral Lasix has been stopped. Blood pressure on the lower side 104/71. 11/20/2022 Patient evaluated today resting in bed. Patient was receiving IV fluids overnight and today his creatinine is up to 1.9. He had a bladder scan done at greater than 500 and patient was able to void. He does states he usually has to walk around and stand to urinate and he cannot urinate lying down. He is unable to ambulate secondary to pain and wound of the right foot/heel. Renal ultrasound is showing no hydronephrosis there is splenomegaly, remote insult to the left kidney. There is nonobstructing right-sided nephrolisthiasis. Patient was noted to hav 11/21/2022 Patient admitted with diabetic wound and right leg cellulitis, wound cultures, Proteus, patient is currently covered with Unasyn which is bacteria sensitive to. IV vancomycin was discontinued he is status post I&D. ID team and vascular surgery team on the case. Also he has evidence of acute kidney injury, creatinine improving 1.9 down to 1.5. He has evidence of urinary retention but patient has been declining Munoz catheter and straight cath per staff. Started him on Flomax. His glucose is controlled Levemir 33 units, hemoglobin A1c 9.5% Ultrasound is negative for DVT He has evidence of splenomegaly, patient informed with recommendation to follow up with hoop cutter as an outpatient Dr. Cochran and he agrees He has some anxiety and atelectasis provided 11/22/2022 Patient still treated for his right lower extremity cellulitis and diabetic foot infection in the ankle, he underwent debridement and he has deep wound. Culture is growing Proteus and to a lesser extent currently is negative for staph. He is on Unasyn. Other than that his vitals looks stable, no more fever, blood pressure is better. Creatinine is back to normal 0.9 He has some urinary retention with bladder scan 300-400, he was started on Flomax yesterday, we checked postprocedure residual today was 50 mL only, this problem was discussed with the patient and instructed to follow up with urologist as an outpatient, the contact information for is provided for him on discharge instructions and he verbalized understanding and acceptance 11/23/2022 Patient status post extensive debridement of his left lower extremity infection. He has deep wound. I discussed the case with Dr. Kaur. Patient requires close medical attention and follow-up, otherwise he might lose his lower extremity. The patient still high-risk for this therefore we going to keep him in the hospital rather than discharge and follow-up outpatient. He is hemodynamically stable. Creatinine is at baseline Patient with bilateral leg swelling and patient feels bloated and asked to restart his home dose of Lasix 80 mg twice a day which is added Radha also started and dressed her with close monitoring of blood pressure and creatinine Patient constipation still bothering him, MiraLAX is added. Antibiotic was updated to ceftriaxone by ID team November 24: I assumed care of the patient. From [facility] hospitalist today. Eating fair. Had a bowel movement. Has some pain in his lower extremity. Laying in bed. IV ceftriaxone. Status post right heel wound extensive debridement by Dr. Lugo. Wound care. On oral Lasix. We'll put on fluid restriction 2000 mL day. Discussed with patient.. Patient is due to get a PICC line. For outpatient antibiotics Active Medications Acetaminophen (Acetaminophen Tab 325 Mg Tab) 650 mg PO Q6HR PRN PRN Reason: Fever and/ or Pain Last Admin: 11/20/22 02:52 Dose: 650 mg Al Hydroxide/Mg Hydroxide (Mag Hydrox/Al Hydrox/Simeth 30 Ml Cup) 30 ml PO Q4HR PRN PRN Reason: GI Upset Last Admin: 11/24/22 05:43 Dose: 30 ml Albuterol Sulfate (Albuterol Nebulized 2.5 Mg/3 Ml) 2.5 mg INHALATION RT-QID PRN PRN Reason: Shortness Of Breath Last Admin: 11/23/22 16:34 Dose: 2.5 mg Alprazolam (Alprazolam 0.25 Mg Tab) 0.25 mg PO TID PRN PRN Reason: Anxiety Dextrose/Water (Dextrose 50% Syringe 50 Ml) 25 ml IVP PER PROTOCOL PRN; Protocol PRN Reason: Hypoglycemia Dextrose/Water (Dextrose 50% Syringe 50 Ml) 50 ml IVP PER PROTOCOL PRN; Protocol PRN Reason: Hypoglycemia Duloxetine HCl (Duloxetine Hcl 60 Mg Capsule.) 60 mg PO BID [facility] Last Admin: 11/24/22 08:20 Dose: 60 mg Famotidine (Famotidine 20 Mg/2 Ml Vial) 20 mg IV Q12HR [facility] Last Admin: 11/24/22 08:20 Dose: 20 mg Furosemide (Furosemide 80 Mg Tab) 80 mg PO BID@0900,1600 [facility] Last Admin: 11/24/22 15:13 Dose: 80 mg Heparin Sodium (Porcine) (Heparin Sodium,Porcine/Pf 5,000 Unit/0.5 Ml Syringe) 5,000 unit SQ Q12HR [facility] Last Admin: 11/24/22 08:20 Dose: 5,000 unit Hydromorphone HCl (Hydromorphone 1 Mg/Ml 1 Ml Syringe) 1 mg IVP Q6HR PRN PRN Reason: Pain Last Admin: 11/24/22 15:13 Dose: 1 mg Hydroxyzine HCl (Hydroxyzine Hcl 25 Mg Tab) 25 mg PO TID PRN PRN Reason: Itching Last Admin: 11/24/22 20:20 Dose: 25 mg Ceftriaxone Sodium 2 gm/ (Sodium Chloride) 50 mls @ 100 mls/hr IVPB Q24HR [facility]; Protocol Last Admin: 11/24/22 08:21 Dose: 100 mls/hr Insulin Aspart (Insulin Aspart (Novolog) 100 Unit/Ml Vial) 0 unit SQ ACHS [facility]; Protocol Last Admin: 11/24/22 17:36 Dose: Not Given Insulin Aspart (Insulin Aspart (Novolog) 100 Unit/Ml Vial) 3 unit SQ AC-TID [facility] Last Admin: 11/24/22 17:36 Dose: Not Given Insulin Detemir (Insulin Detemir (Levemir) 100 Unit/Ml Syr) 33 unit 0.3 unit/kg (33 unit) SQ HS [facility] Last Admin: 11/23/22 20:15 Dose: 33 unit Morphine Sulfate (Morphine Sulfate Ir 15 Mg Tablet) 30 mg PO QID PRN PRN Reason: Pain Last Admin: 11/24/22 18:23 Dose: 30 mg Nicotine (Nicotine 21mg/24hr Patch) 1 patch TRANSDERM DAILY [facility] Last Admin: 11/24/22 08:23 Dose: 1 patch Ondansetron HCl (Ondansetron 4 Mg/2 Ml Vial) 4 mg IVP Q6HR PRN PRN Reason: Nausea And Vomiting Last Admin: 11/24/22 17:07 Dose: 4 mg Sacubitril/Valsartan (Sacubitril/Valsartan 24 Mg-26 Mg Tablet) 1 each PO BID [facility] Last Admin: 11/24/22 08:20 Dose: 1 each Senna (Sennosides 8.6 Mg Tab) 8.6 mg PO BID [facility] Last Admin: 11/24/22 08:20 Dose: 8.6 mg Silver Sulfadiazine (Silver Sulfadiazine 1% Cream 25 Gm Tube) 1 applic TOPICAL DAILY PRN; Protocol PRN Reason: dressing change Last Admin: 11/22/22 16:08 Dose: 1 applic Tamsulosin HCl (Tamsulosin 0.4 Mg Cap.Er.24h) 0.4 mg PO PC-BRKFST LAN Last Admin: 11/24/22 08:20 Dose: 0.4 mg Temazepam (Temazepam 15 Mg Cap) 15 mg PO HS PRN PRN Reason: Insomnia Last Admin: 11/22/22 00:41 Dose: 15 mg Physical examination: VITAL SIGNS: 98.1, 18, 20, 112/67, 96% room air GENERAL: reclining bed, comfortable EYES: Pupils equal. Conjunctiva normal. HEENT: External appearance of nose and ears normal, oral cavity grossly normal. NECK: JVD unable to assess; masses not palpable. HEART: First and second heart sounds are normal; edema present. LUNGS: Respiratory rate increased; diminished breath sounds ABDOMEN: Soft, nontender, liver spleen not palpable, no masses palpable. PSYCH: Alert and oriented x3; mood and affect anxiousl. MUSCULOSKELETAL:No Clubbing/cyanosis;muscles-grossly intact DERMATOLOGICAL: Right heel dressing. With wound VAC INVESTIGATIONS, reviewed in the clinical context: November 23: White count 9.6 hemoglobin 12.4 platelets 184 potassium 5.1 creatinine 1.1 Right heel wound: Proteus vulgaris. Coagulase-negative staph Ultrasound kidney bladder: Splenomegaly. Nonobstructing right sided nephrolithiasis. Right lower extremity Doppler ultrasound: Negative for DVT Assessment: Sepsis secondary to above acute Kidney injury, improving secondary to urinary retention. Improved acute Urinary retention. Improved non-Compliance splenomegaly Asthma, no acute exacerbation History of Coronary Artery Disease Chronic Heart Failure, ischemic cardiomyopathy, s/p AICD and pacemaker Nicotine dependence COPD, no acute exacerbation Diabetes Mellitus history of GERD/Reflux, Hyperlipidemia, Hypertension, History of sleep Apnea/CPAP/BIPAP History of Supraventricular Tachycardia (SVT) History of diabetic foot wound Obesity with BMI of 36.7 Assessment and plan: -Acute right lower leg cellulitis, right heel diabetic ulcer secondary to Proteus. Status post I&D on 11/19, by Dr. Lugo Cultures growing Proteus mirabilis. IV ceftriaxone. For outpatient antibiotics- PICC line. -chronic congestive heart failure exacerbation from nonischemic cardiomyopathy systolic dysfunction EF less than 20%: Lasix 80 mg by mouth twice a day. Start Fluid restriction 2000 mL Strict I's and O's. Toprol-held. Resume Aldactone 25 mg . AICD. Entresto one tablet by mouth twice a day - COPD exacerbation in a current smoker Robertajad. -Diabetes mellitus type 2 chronically on insulin, uncontrolled with hyperglycemia and hypoglycemia. Lantus 33 units subcu daily . Diabetic diet. Accu-Cheks and sliding scale -Hyperlipidemia -Essential hypertension Toprol-XL -held for now -Obstructive sleep apnea sometimes uses CPAP machine -Diabetic peripheral neuropathy -Anxiety Ativan when necessary -DJD Tylenol when necessary -Chronic nicotine dependence patient cigarette smoker Nicotine patch 14 -AICD -Lower extremity significant venous insufficiency
[2022-11-24] MEDS: INSULIN DETEMIR (LEVEMIR) 100 UNIT/ML SYR SQ SCH (21:16)
[2022-11-24] MEDS: SPIRONOLACTONE 25 MG TAB PO SCH (21:16)
[2022-11-24] MEDS: TEMAZEPAM 15 MG CAP PO PRN (22:11)
[2022-11-25] MEDS: HYDROmorphone 1 MG/ML 1 ML SYRINGE IVP PRN ×4 (03:04→21:46)
[2022-11-25 05:11] LABS: Glucose,Whole Blood 155 mg/dL (70-110)
[2022-11-25 05:52] LABS: African American GFR (CKD) 80 (>60 ml/min/1.73 sqM); Anion Gap 8 mmol/L; Blood Urea Nitrogen 14 mg/dL (9-20); Calcium 8.3 mg/dL (8.4-10.2); Carbon Dioxide 32 mmol/L (22-30); Chloride 95 mmol/L (98-107); Glucose 153 mg/dL (74-99); Non-African American GFR(CKD) 69 (>60 ml/min/1.73 sqM); Potassium 4.7 mmol/L (3.5-5.1); Sodium 135 mmol/L (137-145)
[2022-11-25] MEDS: INSULIN ASPART (NovoLOG) 100 UNIT/ML VIAL SQ SCH ×7 (06:39→21:49)
[2022-11-25] MEDS: TAMSULOSIN 0.4 MG CAP.ER.24H PO SCH (08:14)
[2022-11-25] MEDS: FAMOTIDINE 20 MG/2 ML VIAL IV SCH ×2 (08:14→21:46)
[2022-11-25] MEDS: NICOTINE 21MG/24HR PATCH TRANSDERM SCH (08:14)
[2022-11-25] MEDS: ENOXAPARIN 40 MG/0.4 ML SYRINGE SQ SCH (08:14)
[2022-11-25] MEDS: DULoxetine HCL 60 MG CAPSULE.DR PO SCH ×2 (08:15→21:52)
[2022-11-25] MEDS: SPIRONOLACTONE 25 MG TAB PO SCH (08:15)
[2022-11-25] MEDS: SACUBITRIL/VALSARTAN 24 MG-26 MG TABLET PO SCH ×2 (08:15→21:52)
[2022-11-25] MEDS: SENNOSIDES 8.6 MG TAB PO SCH ×2 (08:15→21:52)
[2022-11-25] MEDS: FUROSEMIDE 80 MG TAB PO SCH ×2 (08:15→15:47)
--- NOTE | 2022-11-25 09:00 | P.PN ---
Subjective Progress Note Date: 11/24/22 Principal diagnosis: Right lower extremity cellulitis Patient is a 52-year-old male with a past medical history significant for diabetes mellitus hypertension hyperlipidemia COPD coronary artery disease ischemic cardiomyopathy presenting to the hospital for evaluation of right lower extremity swelling pain, the patient been diagnosed with right lower extremity cellulitis and concerning for infected callus on the right heel, the patient is status post extensive debridement of the right heel wound completed on 11/19/2022 On today's evaluation and that is 11/24/2022, the patient remains to be afebrile, the patient denies pain to the right foot wound area has decreased in intensity, the patient denies any chest pain shortness of breath or cough no abdominal pain, patient did have relief of his constipation Objective - Vital Signs Vital signs: Vital Signs Temp 98.0 F 11/24/22 13:49 Pulse 107 H 11/24/22 13:49 Resp 18 11/24/22 13:49 BP 105/67 11/24/22 13:49 Pulse Ox 97 11/24/22 13:49 FiO2 21 11/21/22 08:27 Intake & Output 11/23/22 11/24/22 11/24/22 18:59 06:59 18:59 Output Total 675 875 650 Balance -561 -548 -091 Weight 116.4 kg Output: Drainage 0 Right Foot 0 Urine 675 879 650 Other: # Bowel Movements 1 1 - Exam GENERAL DESCRIPTION: Middle-age male up in bed in no distress RESPIRATORY SYSTEM: Unlabored breathing , decreased breath sounds at bases HEART: S1 S2 regular rate and rhythm , ABDOMEN: Soft , no tenderness EXTREMITIES: Extensive right foot plantar wound covered with a wound VAC - Labs CBC & Chem 7: 11/23/22 04:07 11/25/22 04:53 Labs: Abnormal Lab Results - Last 24 Hours (Table) 11/23/22 11/23/22 Range/Units 16:51 19:48 POC Glucose (mg/dL) 161 H 135 H (70-110) mg/dL Microbiology - Last 24 Hours (Table) 11/19/22 17:30 Anaerobic Culture - Final Heel - Right Assessment and Plan (1) Cellulitis of right leg Current Visit: Yes Status: Acute Code(s): L03.115 - CELLULITIS OF RIGHT LOWER LIMB SNOMED Code(s): 163086371 (2) Sepsis Current Visit: Yes Status: Acute Code(s): A41.9 - SEPSIS, UNSPECIFIED ORGANISM SNOMED Code(s): 93560043 Plan: 1patient was in the hospital with right lower extremity cellulitis in this patient who did have a wound on the plantar aspect of the right foot likely the source of this cellulitis and likely from gram-positive skin stacy such as strep or Staph aureus 2Patient is status post surgical debridement of the right heel along with both aerobic and anaerobic cultures are currently growing gram-negative initial cultu re grew Proteus which was a sensitive pathogen 3-patient to continue with the Rocephin 2 g daily and oral Flagyl to finish a 6 week course of therapy local wound care with a wound VAC Time with Patient: Less than 30
[2022-11-25] MEDS: hydrOXYzine HCL 25 MG TAB PO PRN ×2 (10:20→15:47)
[2022-11-25 11:28] LABS: Glucose,Whole Blood 151 mg/dL (70-110)
--- NOTE | 2022-11-25 12:31 | P.PN ---
Progress Note - Text 51-year-old diabetic male patient came with there are infected callus patient is an IV antibiotic Rocephin under care of infectious disease also because there was drilled drainage noted patient has a wound VAC which was changed yesterday Will be changed on Saturday patient is afebrile continue with IV antibiotic and patient will be needing change wound VAC on Saturday
[2022-11-25] MEDS: PSYLLIUM HUSK 100% 6 GM PACKET PO SCH (13:50)
[2022-11-25 16:30] LABS: Glucose,Whole Blood 169 mg/dL (70-110)
--- NOTE | 2022-11-25 18:42 | P.PN ---
Progress Note - Text Progress Note Date: 11/25/22 Hospital course: Presents because of right swollen worm lower leg which he says that is been goi ng on for about 2 weeks and got worse over the last 4 days his swelling mainly in the middle part of the right leg and there is to try to ulcers with very scant yellowish discharge from the lower wound, H ulcer is about 1-2 inch in diameter with right base. With surrounding redness swelling and tenderness. He has some mild dyspepsia and headache but denies abdominal pain, no chest pain, no dyspnea. No nausea vomiting diarrhea, no urinary complaints. Patient denies history of trauma Patient has fever of 101.1 on admission. CBC showed leukocytosis of 23,000. INR is unremarkable. Sodium 1:30. Creatinine 1.1 BUN elevated at 40. Glucose 147 and 159. Liver Enzymes not elevated. EKG: Sinus tachycardia with occasional PVCs, poor R-wave progression, low voltage, looks similar to old EKG from 07/16/2022 Ultrasound of the legs showing no evidence of DVT of the right lower extremity but there is prominent right inguinal lymph nodes Patient was started on IV vancomycin and admitted with infectious disease consult 11/19/2022 Patient is evaluated today sitting up at the edge of the bed. He continues to report significant pain to his right lower extremity. He is receiving IV Dilaudid for this as well as his home morphine instant release pain medication. Patient underwent I&D of the right heel today with Dr. Kaur. Surgical cultures were taken. Patient had a foot xray done which is showing no amputation defect involving the distal one third of the fifth metatarsal with some irregularity at the base of the fifth proximal phalanx versus a probable partial amputation. There is also a small soft tissue defect of the oblique image possible ulcer at this level laterally. There is no bony destruction to suggest osteoarthritis the level of the lateral plantar surface at the midfoot level. He remains on IV Unasyn, IV vancomycin with infectious disease following the cultures. Patient was started on a IV fluids yesterday secondary to an increase in creatinine today is 1.55. His oral Lasix has been stopped. Blood pressure on the lower side 104/71. 11/20/2022 Patient evaluated today resting in bed. Patient was receiving IV fluids overnight and today his creatinine is up to 1.9. He had a bladder scan done at greater than 500 and patient was able to void. He does states he usually has to walk around and stand to urinate and he cannot urinate lying down. He is unable to ambulate secondary to pain and wound of the right foot/heel. Renal ultrasound is showing no hydronephrosis there is splenomegaly, remote insult to the left kidney. There is nonobstructing right-sided nephrolisthiasis. Patient was noted to hav 11/21/2022 Patient admitted with diabetic wound and right leg cellulitis, wound cultures, Proteus, patient is currently covered with Unasyn which is bacteria sensitive to. IV vancomycin was discontinued he is status post I&D. ID team and vascular surgery team on the case. Also he has evidence of acute kidney injury, creatinine improving 1.9 down to 1.5. He has evidence of urinary retention but patient has been declining Munoz catheter and straight cath per staff. Started him on Flomax. His glucose is controlled Levemir 33 units, hemoglobin A1c 9.5% Ultrasound is negative for DVT He has evidence of splenomegaly, patient informed with recommendation to follow up with adjunct english instructor as an outpatient Dr. Cochran and he agrees He has some anxiety and atelectasis provided 11/22/2022 Patient still treated for his right lower extremity cellulitis and diabetic foot infection in the ankle, he underwent debridement and he has deep wound. Culture is growing Proteus and to a lesser extent currently is negative for staph. He is on Unasyn. Other than that his vitals looks stable, no more fever, blood pressure is better. Creatinine is back to normal 0.9 He has some urinary retention with bladder scan 300-400, he was started on Flomax yesterday, we checked postprocedure residual today was 50 mL only, this problem was discussed with the patient and instructed to follow up with urologist as an outpatient, the contact information for is provided for him on discharge instructions and he verbalized understanding and acceptance 11/23/2022 Patient status post extensive debridement of his left lower extremity infection. He has deep wound. I discussed the case with Dr. Kaur. Patient requires close medical attention and follow-up, otherwise he might lose his lower extremity. The patient still high-risk for this therefore we going to keep him in the hospital rather than discharge and follow-up outpatient. He is hemodynamically stable. Creatinine is at baseline Patient with bilateral leg swelling and patient feels bloated and asked to restart his home dose of Lasix 80 mg twice a day which is added Radha also started and dressed her with close monitoring of blood pressure and creatinine Patient constipation still bothering him, MiraLAX is added. Antibiotic was updated to ceftriaxone by ID team November 24: I assumed care of the patient. From [facility] hospitalist today. Eating fair. Had a bowel movement. Has some pain in his lower extremity. Laying in bed. IV ceftriaxone. Status post right heel wound extensive debridem ent by Dr. Lugo. Wound care. On oral Lasix. We'll put on fluid restriction 2000 mL day. Discussed with patient.. Patient is due to get a PICC line. For outpatient antibiotics November 25: 18 well. Pain better controlled. Answered restriction. Awaiting PICC line. Wound care to continue. Active Medications Acetaminophen (Acetaminophen Tab 325 Mg Tab) 650 mg PO Q6HR PRN PRN Reason: Fever and/ or Pain Last Admin: 11/20/22 02:52 Dose: 650 mg Al Hydroxide/Mg Hydroxide (Mag Hydrox/Al Hydrox/Simeth 30 Ml Cup) 30 ml PO Q4HR PRN PRN Reason: GI Upset Last Admin: 11/24/22 05:43 Dose: 30 ml Albuterol Sulfate (Albuterol Nebulized 2.5 Mg/3 Ml) 2.5 mg INHALATION RT-QID PRN PRN Reason: Shortness Of Breath Last Admin: 11/23/22 16:34 Dose: 2.5 mg Alprazolam (Alprazolam 0.25 Mg Tab) 0.25 mg PO TID PRN PRN Reason: Anxiety Dextrose/Water (Dextrose 50% Syringe 50 Ml) 25 ml IVP PER PROTOCOL PRN; Protocol PRN Reason: Hypoglycemia Dextrose/Water (Dextrose 50% Syringe 50 Ml) 50 ml IVP PER PROTOCOL PRN; Protocol PRN Reason: Hypoglycemia Duloxetine HCl (Duloxetine Hcl 60 Mg Elvis.) 60 mg PO BID [facility] Last Admin: 11/25/22 08:15 Dose: 60 mg Enoxaparin Sodium (Enoxaparin 40 Mg/0.4 Ml Syringe) 40 mg SQ DAILY [facility] Last Admin: 11/25/22 08:14 Dose: 40 mg Famotidine (Famotidine 20 Mg/2 Ml Vial) 20 mg IV Q12HR [facility] Last Admin: 11/25/22 08:14 Dose: 20 mg Furosemide (Furosemide 80 Mg Tab) 80 mg PO BID@0900,1600 [facility] Last Admin: 11/25/22 15:47 Dose: 80 mg Hydromorphone HCl (Hydromorphone 1 Mg/Ml 1 Ml Syringe) 1 mg IVP Q6HR PRN PRN Reason: Pain Last Admin: 11/25/22 15:46 Dose: 1 mg Hydroxyzine HCl (Hydroxyzine Hcl 25 Mg Tab) 25 mg PO TID PRN PRN Reason: Itching Last Admin: 11/25/22 15:47 Dose: 25 mg Ceftriaxone Sodium 2 gm/ (Sodium Chloride) 50 mls @ 100 mls/hr IVPB Q24HR [facility]; Protocol Last Admin: 11/25/22 08:15 Dose: 100 mls/hr Insulin Aspart (Insulin Aspart (Novolog) 100 Unit/Ml Vial) 0 unit SQ ACHS [facility]; Protocol Last Admin: 11/25/22 17:37 Dose: 1 unit Insulin Aspart (Insulin Aspart (Novolog) 100 Unit/Ml Vial) 3 unit SQ AC-TID [facility] Last Admin: 11/25/22 17:37 Dose: 3 unit Insulin Detemir (Insulin Detemir (Levemir) 100 Unit/Ml Syr) 33 unit 0.3 unit/kg (33 unit) SQ HS [facility] Last Admin: 11/24/22 21:16 Dose: 33 unit Morphine Sulfate (Morphine Sulfate Ir 15 Mg Tablet) 30 mg PO QID PRN PRN Reason: Pain Last Admin: 11/24/22 18:23 Dose: 30 mg Nicotine (Nicotine 21mg/24hr Patch) 1 patch TRANSDERM DAILY [facility] Last Admin: 11/25/22 08:14 Dose: 1 patch Ondansetron HCl (Ondansetron 4 Mg/2 Ml Vial) 4 mg IVP Q6HR PRN PRN Reason: Nausea And Vomiting Last Admin: 11/24/22 17:07 Dose: 4 mg Psyllium Hydrophilic Mucilloid (Psyllium Husk 100% 6 Gm Packet) 6 gm PO DAILY [facility] Last Admin: 11/25/22 13:50 Dose: 6 gm Sacubitril/Valsartan (Sacubitril/Valsartan 24 Mg-26 Mg Tablet) 1 each PO BID [facility] Last Admin: 11/25/22 08:15 Dose: 1 each Senna (Sennosides 8.6 Mg Tab) 8.6 mg PO BID [facility] Last Admin: 11/25/22 08:15 Dose: 8.6 mg Silver Sulfadiazine (Silver Sulfadiazine 1% Cream 25 Gm Tube) 1 applic TOPICAL DAILY PRN; Protocol PRN Reason: dressing change Last Admin: 11/22/22 16:08 Dose: 1 applic Spironolactone (Spironolactone 25 Mg Tab) 25 mg PO DAILY [facility] Last Admin: 11/25/22 08:15 Dose: 25 mg Tamsulosin HCl (Tamsulosin 0.4 Mg Cap.Er.24h) 0.4 mg PO PC-BRKFST [facility] Last Admin: 11/25/22 08:14 Dose: 0.4 mg Temazepam (Temazepam 15 Mg Cap) 15 mg PO HS PRN PRN Reason: Insomnia Last Admin: 11/24/22 22:11 Dose: 15 mg Physical examination: VITAL SIGNS: 97.8, 103, 18, 114/79, 95% room air GENERAL: Sitting at the site of the bed, comfortable EYES: Pupils equal. Conjunctiva normal. HEENT: External appearance of nose and ears normal, oral cavity grossly normal. NECK: JVD unable to assess; masses not palpable. HEART: First and second heart sounds are normal; edema present. LUNGS: Respiratory rate increased; diminished breath sounds ABDOMEN: Soft, nontender, liver spleen not palpable, no masses palpable. PSYCH: Alert and oriented x3; mood and affect anxiousl. MUSCULOSKELETAL:No Clubbing/cyanosis;muscles-grossly intact DERMATOLOGICAL: Right heel dressing. With wound VAC INVESTIGATIONS, reviewed in the clinical context: November 25: Sodium 135 potassium 4.7 creatinine 1.19 November 23: White count 9.6 hemoglobin 12.4 platelets 184 potassium 5.1 creatinine 1.1 Right heel wound: Proteus vulgaris. Coagulase-negative staph Ultrasound kidney bladder: Splenomegaly. Nonobstructing right sided nephrolithiasis. Right lower extremity Doppler ultrasound: Negative for DVT Assessment and plan: -Acute right lower leg cellulitis, right heel diabetic ulcer secondary to Proteus. Status post I&D on 11/19, by Dr. Lugo Cultures growing Proteus mirabilis. IV ceftriaxone. For outpatient antibiotics- PICC line. -chronic congestive heart failure exacerbation from nonischemic cardiomyopathy systolic dysfunction EF less than 20%: Haydenix 80 mg by mouth twice a day. Start Fluid restriction 2000 mL Strict I's and O's. Toprol-held. Resume Aldactone 25 mg . AICD. Entresto one tablet by mouth twice a day - COPD exacerbation in a current smoker Robertajad. -Diabetes mellitus type 2 chronically on insulin, uncontrolled with hyperglycemia and hypoglycemia. Lantus 33 units subcu daily . Diabetic diet. Accu-Cheks and sliding scale -Hyperlipidemia -Essential hypertension Toprol-XL -held for now -Obstructive sleep apnea sometimes uses CPAP machine -Diabetic peripheral neuropathy -Anxiety Ativan when necessary -DJD Tylenol when necessary -Chronic nicotine dependence patient cigarette smoker Nicotine patch 14 -AICD -Lower extremity significant venous insufficiency
[2022-11-25] MEDS: ALPRAZolam 0.25 MG TAB PO PRN (20:17)
[2022-11-25] MEDS: ONDANSETRON 4 MG/2 ML VIAL IVP PRN (20:24)
[2022-11-25 21:26] LABS: Glucose,Whole Blood 175 mg/dL (70-110)
[2022-11-25] MEDS: INSULIN DETEMIR (LEVEMIR) 100 UNIT/ML SYR SQ SCH (21:49)
[2022-11-25] MEDS: guaiFENesin SYRUP 100MG/5ML 200 MG/10 ML CUP PO PRN (21:52)
[2022-11-25] MEDS: TEMAZEPAM 15 MG CAP PO PRN (21:55)
--- NOTE | 2022-11-25 22:49 | P.PN ---
Subjective Progress Note Date: 11/25/22 Principal diagnosis: Right lower extremity cellulitis Patient is a 52-year-old male with a past medical history significant for diabetes mellitus hypertension hyperlipidemia COPD coronary artery disease ischemic cardiomyopathy presenting to the hospital for evaluation of right lower extremity swelling pain, the patient been diagnosed with right lower extremity cellulitis and concerning for infected callus on the right heel, the patient is status post extensive debridement of the right heel wound completed on 11/19/2022 On today's evaluation and that is 11/25/2022, the patient continues to be afebrile, the patient denies pain to the right foot wound area , the patient denies any chest pain shortness of breath or cough no abdominal pain Objective - Vital Signs Vital signs: Vital Signs Temp 98.2 F 11/25/22 06:51 Pulse 105 H 11/25/22 06:51 Resp 19 11/25/22 06:51 BP 109/70 11/25/22 06:51 Pulse Ox 98 11/25/22 02:12 FiO2 21 11/21/22 08:27 Intake & Output 11/24/22 11/25/22 11/25/22 18:59 06:59 18:59 Intake Total 700 Output Total 1025 625 Balance -1025 75 Weight 116.2 kg Intake: Oral 700 Output: Urine 1025 625 Other: Voiding Method Toilet Urinal - Exam GENERAL DESCRIPTION: Middle-age male up in bed in no distress RESPIRATORY SYSTEM: Unlabored breathing , decreased breath sounds at bases HEART: S1 S2 regular rate and rhythm , ABDOMEN: Soft , no tenderness EXTREMITIES: Extensive right foot plantar wound covered with a wound VAC - Labs CBC & Chem 7: 11/23/22 04:07 11/25/22 04:53 Labs: Abnormal Lab Results - Last 24 Hours (Table) 11/24/22 11/24/22 11/25/22 Range/Units 16:45 20:32 04:53 Sodium 135 L (137-145) mmol/L Chloride 95 L (98-107) mmol/L Carbon Dioxide 32 H (22-30) mmol/L Glucose 153 H (74-99) mg/dL POC Glucose (mg/dL) 135 H 162 H (70-110) mg/dL Calcium 8.3 L (8.4-10.2) mg/dL 11/25/22 Range/Units 05:10 Sodium (137-145) mmol/L Chloride (98-107) mmol/L Carbon Dioxide (22-30) mmol/L Glucose (74-99) mg/dL POC Glucose (mg/dL) 155 H (70-110) mg/dL Calcium (8.4-10.2) mg/dL Assessment and Plan (1) Cellulitis of right leg Current Visit: Yes Status: Acute Code(s): L03.115 - CELLULITIS OF RIGHT LOWER LIMB SNOMED Code(s): 335015384 (2) Sepsis Current Visit: Yes Status: Acute Code(s): A41.9 - SEPSIS, UNSPECIFIED ORGANISM SNOMED Code(s): 77896555 Plan: 1patient was in the hospital with right lower extremity cellulitis in this patient who did have a wound on the plantar aspect of the right foot likely the source of this cellulitis and likely from gram-positive skin stacy such as strep or Staph aureus 2Patient is status post surgical debridement of the right heel along with both aerobic and anaerobic cultures are currently growing gram-negative initial culture grew Proteus which was a sensitive pathogen 3-patient slowly clinically improving plan is to continue with the Rocephin 2 g daily and oral Flagyl to finish a 6 week course of therapy local wound care with a wound VAC and a close outpatient follow-up Time with Patient: Less than 30
[2022-11-26] MEDS: guaiFENesin SYRUP 100MG/5ML 200 MG/10 ML CUP PO PRN ×2 (04:18→11:14)
[2022-11-26] MEDS: HYDROmorphone 1 MG/ML 1 ML SYRINGE IVP PRN ×2 (04:18→09:45)
[2022-11-26] MEDS: ONDANSETRON 4 MG/2 ML VIAL IVP PRN ×2 (04:26→14:44)
[2022-11-26 06:14] LABS: Glucose,Whole Blood 121 mg/dL (70-110)
[2022-11-26] MEDS: INSULIN ASPART (NovoLOG) 100 UNIT/ML VIAL SQ SCH ×4 (06:24→12:25)
[2022-11-26] MEDS: ALPRAZolam 0.25 MG TAB PO PRN (07:24)
[2022-11-26] MEDS: ENOXAPARIN 40 MG/0.4 ML SYRINGE SQ SCH (07:52)
[2022-11-26] MEDS: TAMSULOSIN 0.4 MG CAP.ER.24H PO SCH (07:53)
[2022-11-26] MEDS: FAMOTIDINE 20 MG/2 ML VIAL IV SCH (07:53)
[2022-11-26] MEDS: DULoxetine HCL 60 MG CAPSULE.DR PO SCH (07:53)
[2022-11-26] MEDS: SENNOSIDES 8.6 MG TAB PO SCH (07:53)
[2022-11-26] MEDS: PSYLLIUM HUSK 100% 6 GM PACKET PO SCH (07:53)
[2022-11-26] MEDS: NICOTINE 21MG/24HR PATCH TRANSDERM SCH (07:54)
[2022-11-26] MEDS: SPIRONOLACTONE 25 MG TAB PO SCH (07:54)
[2022-11-26] MEDS: FUROSEMIDE 80 MG TAB PO SCH (07:55)
[2022-11-26] MEDS: SACUBITRIL/VALSARTAN 24 MG-26 MG TABLET PO SCH (07:55)
[2022-11-26 08:58] VITALS: RESP 19
[2022-11-26] MEDS: ALBUTEROL NEBULIZED 2.5 MG/3 ML INHALATION PRN (10:06)
[2022-11-26] MEDS ORDERED: METOPROLOL SUCCINATE (ER) 50 MG TAB.ER.24H PO SCH (11:00)
--- NOTE | 2022-11-26 11:09 | P.CRDCN ---
History of Present Illness Consult date: 11/26/22 Requesting physician: Buck Johnsno Reason for Consult (text): run of 14 v-tach Chief complaint: lower extremity edema and wound History of present illness: This a 52-year-old gentleman who previously followed in the office with Dr. Abbasi was last seen in July 2020. He has a known history of severe nonischemic cardiomyopathy, status post AICD in 2014, mild nonobstructive CAD, nicotine dependence, hypertension, hyperlipidemia, and pulmonary hypertension. Presented to the hospital with lower extremity edema as well as a wound on the right lower extremity. He is on IV antibiotics and has a wound VAC. He is being followed by vascular as well as ID. We were asked to see the patient consultation after patient had a 4 beat run of nonsustained ventricular tachycardia this morning. Of note the patient does have an ICD and he said he felt that by bright a few times a couple of months ago. On admission medication reconciliation metoprolol succinate 50 mg was selected to be continued however for some reason the medication was never ordered and therefore he's been without his beta leah since admission. Labs yesterday showed a potassium of 4.7. Upon examination he is resting comfortably in bed. He denies any complaints of chest discomfort. He feels his breathing is stable. Edema is somewhat better since admission. He initially denied any complaints of palpitations but then said he did have an episode this morning that was brief. He had no dizziness, lightheadedness or syncope. Denies any orthopnea or PND. Past Medical History Past Medical History: Asthma, Coronary Artery Disease (CAD), Chest Pain / Angina, Heart Failure, COPD, Diabetes Mellitus, GERD/Reflux, Hyperlipidemia, Hypertension, Myocardial Infarction (DC), Pneumonia, Sleep Apnea/CPAP/BIPAP, Supraventricular Tachycardia (SVT) Additional Past Medical History / Comment(s): Ischemic cardiomyopathy, chronic CHF, SVT, IDDM type II, KAMINI with CPAP occasionally used, chronic cervical/back pain, DJD, diabetic foot wounds x 4 months. Last Myocardial Infarction Date:: 12/11/17 History of Any Multi-Drug Resistant Organisms: MRSA Date of last positivie culture/infection: 03/10/20 MDRO Source:: MRSA TOE Past Surgical History: Adenoidectomy, AICD, Back Surgery, Cholecystectomy, EPS, Heart Catheterization, Pacemaker, Tonsillectomy Additional Past Surgical History / Comment(s): 12/10/17 cardiac cath, previous cardiac cath, 09/02/14 AICD/pacer, EGD/colonoscopy, low back surgery with fusion. Past Anesthesia/Blood Transfusion Reactions: Motion Sickness Additional Past Anesthesia/Blood Transfusion Reaction / Comment(s): Pt states he received blood with back surgery without reaction. Type of Cardiac Device: Permanent Pacemaker, AICD Device Placement Date:: 09-02-14 Past Psychological History: ADD/ADHD, Anxiety Smoking Status: Current every day smoker Past Alcohol Use History: Occasional Past Drug Use History: Marijuana - Past Family History Father Additional Family Medical History / Comment(s): Pt has not kept in close contact with his father for many yrs. Father was an alcoholic and pt believes he has from cirrhosis of the liver. Mother History Unknown: Yes Additional Family Medical History / Comment(s): Pt is not in contact with his mother or his father who he has heard had . Medications and Allergies Home Medications Medication Instructions Recorded Confirmed Type Albuterol Inhaler [Ventolin Hfa 2 puff INHALATION RT-QID PRN 07/06/22 11/18/22 History Inhaler] INSULIN LISPRO (humaLOG) [humaLOG] See Protocol SQ ACHS PRN 07/06/22 11/18/22 History Morphine Sulfate Ir [MSIR] 30 mg PO QID PRN 07/06/22 11/18/22 History Metoprolol Succinate (ER) [Toprol 50 mg PO DAILY #30 tab 07/10/22 11/18/22 Rx XL] Spironolactone [Aldactone] 25 mg PO DAILY #30 tab 07/10/22 11/18/22 Rx DULoxetine HCL [Cymbalta] 60 mg PO BID 11/18/22 11/18/22 History Furosemide [Lasix] 80 mg PO BID 11/18/22 11/18/22 History Sacubitril/Valsartan [Entresto 24 1 tab PO BID 11/18/22 11/18/22 History mg-26 mg Tablet] metroNIDAZOLE [Flagyl] 500 mg PO TID #90 tab 11/23/22 Rx Insulin Glargine,Hum.rec.anlog 30 units SQ HS #1 11/26/22 11/18/22 Rx [Toujeo Solostar] Nicotine 21Mg/24Hr Patch [Habitrol] 1 patch TRANSDERM DAILY #14 patch 11/26/22 Rx Psyllium Husk 100% [Metamucil 6 gm PO DAILY packet 11/26/22 Rx Packet] SILVER sulfADIAZINE CREAM 1 applic TOPICAL DAILY PRN each 11/26/22 Rx [Silvadene Cream] Tamsulosin [Flomax] 0.4 mg PO PC-BRKFST #14 cap 11/26/22 Rx Allergies Allergy/AdvReac Type Severity Reaction Status Date / Time azithromycin Allergy Anaphylaxis Verified 11/18/22 11:16 gemfibrozil [From Lopid] Allergy Rash/Hives Verified 11/18/22 11:16 Physical Exam Vitals: Vital Signs Temp Pulse Pulse Resp BP Pulse Ox 11/26/22 10:18 110 H 11/26/22 10:08 106 H 97 11/26/22 07:02 98.7 F 107 H 19 105/69 93 L 11/26/22 01:07 98.8 F 97 18 106/73 95 11/25/22 19:19 98.4 F 104 H 20 122/85 96 11/25/22 14:00 97.8 F 103 H 18 114/79 95 Intake and Output 11/25/22 11/26/22 11/26/22 22:59 06:59 14:59 Intake Total 580 720 Output Total 1350 770 100 Balance -770 -50 -100 Intake: Oral 580 720 Output: Urine 1350 770 100 Other: Voiding Method Toilet Urinal Weight 115.5 kg PHYSICAL EXAMINATION: This is a 52-year-old male in no apparent distress at the time of my examination. HEENT: Head is atraumatic, normocephalic. Pupils are equal, round. Sclerae anicteric. Conjunctivae are clear. Mucous membranes of the mouth are moist. Neck is supple. There is no elevated jugular venous pressure. No carotid bruit is heard. CHEST EXAMINATION: Lungs reveal diminished air entry bilaterally. No wheezes rales or rhonchi. Respirations even and nonlabored. HEART EXAMINATION: Heart regular, positive S1 and S2. No S3. No S4. Tachycardia noted. ABDOMEN: Soft, nontender. Bowel sounds are heard. No organomegaly noted. EXTREMITIES: 1-2+ bilateral lower extremity edema right worse than left with dressing noted to right lower leg. NEUROLOGIC EXAMINATION: Patient is awake, alert and oriented x3. Results 11/23/22 04:07 11/25/22 04:53 Current Medications Generic Name Dose Route Start Last Admin Trade Name Freq PRN Reason Stop Dose Admin Acetaminophen 650 mg 11/18/22 02:21 11/20/22 02:52 Acetaminophen Tab 325 Mg Tab PO 650 mg Q6HR PRN Administration Fever and/ or Pain Al Hydroxide/Mg Hydroxide 30 ml 11/20/22 17:00 11/24/22 05:43 Mag Hydrox/Al Hydrox/Simeth 30 Ml Cup PO 30 ml Q4HR PRN Administration GI Upset Albuterol Sulfate 2.5 mg 11/18/22 11:25 11/26/22 10:06 Albuterol Nebulized 2.5 Mg/3 Ml INHALATION 2.5 mg RT-QID PRN Administration Shortness Of Breath Alprazolam 0.25 mg 11/24/22 08:05 11/26/22 07:24 Alprazolam 0.25 Mg Tab PO 0.25 mg TID PRN Administration Anxiety Dextrose/Water 25 ml 11/18/22 06:47 Dextrose 50% Syringe 50 Ml IVP PER PROTOCOL PRN Hypoglycemia Protocol Dextrose/Water 50 ml 11/18/22 06:47 Dextrose 50% Syringe 50 Ml IVP PER PROTOCOL PRN Hypoglycemia Protocol Duloxetine HCl 60 mg 11/18/22 21:00 11/26/22 07:53 Duloxetine Hcl 60 Mg Capsule.Dr PO 60 mg BID LAN Administration Enoxaparin Sodium 40 mg 11/25/22 09:00 11/26/22 07:52 Enoxaparin 40 Mg/0.4 Ml Syringe SQ 40 mg DAILY LAN Administration Famotidine 20 mg 11/21/22 21:00 11/26/22 07:53 Famotidine 20 Mg/2 Ml Vial IV 20 mg Q12HR LAN Administration Furosemide 80 mg 11/23/22 09:00 11/26/22 07:55 Furosemide 80 Mg Tab PO 80 mg BID@0900,1600 LAN Administration Guaifenesin 200 mg 11/25/22 20:57 11/26/22 04:18 Guaifenesin Syrup 100mg/5ml 200 Mg/10 Ml Cup PO 200 mg Q6HR PRN Administration Cough Hydromorphone HCl 1 mg 11/19/22 10:12 11/26/22 09:45 Hydromorphone 1 Mg/Ml 1 Ml Syringe IVP 1 mg Q6HR PRN Administration Pain Hydroxyzine HCl 25 mg 11/21/22 11:53 11/25/22 15:47 Hydroxyzine Hcl 25 Mg Tab PO 25 mg TID PRN Administration Itching Ceftriaxone Sodium 2 gm/ 50 mls @ 100 mls/hr 11/23/22 11:45 11/26/22 07:54 Sodium Chloride IVPB 100 mls/hr Q24HR LAN Administration Protocol Insulin Aspart 0 unit 11/18/22 12:30 11/26/22 06:24 Insulin Aspart (Novolog) 100 Unit/Ml Vial SQ Not Given ACHS [facility] Protocol Insulin Aspart 3 unit 11/21/22 07:30 11/26/22 07:56 Insulin Aspart (Novolog) 100 Unit/Ml Vial SQ 3 unit AC-TID LAN Administration Insulin Detemir 33 unit 11/18/22 21:00 11/25/22 21:49 Insulin Detemir (Levemir) 100 Unit/Ml Syr 0.3 unit/kg (33 unit) 33 unit SQ Administration HS [facility] Metoprolol Succinate 50 mg 11/26/22 11:00 Metoprolol Succinate (Er) 50 Mg Tab.Er.24h PO DAILY [facility] Morphine Sulfate 30 mg 11/18/22 10:00 11/24/22 18:23 Morphine Sulfate Ir 15 Mg Tablet PO 30 mg QID PRN Administration Pain Nicotine 1 patch 11/18/22 09:00 11/26/22 07:54 Nicotine 21mg/24hr Patch TRANSDERM 1 patch DAILY LAN Administration Ondansetron HCl 4 mg 11/18/22 02:21 11/26/22 04:26 Ondansetron 4 Mg/2 Ml Vial IVP 4 mg Q6HR PRN Administration Nausea And Vomiting Psyllium Hydrophilic Mucilloid 6 gm 11/25/22 12:30 11/26/22 07:53 Psyllium Husk 100% 6 Gm Packet PO 6 gm DAILY LAN Administration Sacubitril/Valsartan 1 each 11/23/22 21:00 11/26/22 07:55 Sacubitril/Valsartan 24 Mg-26 Mg Tablet PO 1 each BID LAN Administration Senna 8.6 mg 11/21/22 12:30 11/26/22 07:53 Sennosides 8.6 Mg Tab PO 8.6 mg BID LAN Administration Silver Sulfadiazine 1 applic 11/21/22 16:00 11/22/22 16:08 Silver Sulfadiazine 1% Cream 25 Gm Tube TOPICAL 1 applic DAILY PRN Administration dressing change Protocol Spironolactone 25 mg 11/24/22 21:15 11/26/22 07:54 Spironolactone 25 Mg Tab PO 25 mg DAILY LAN Administration Tamsulosin HCl 0.4 mg 11/21/22 15:15 11/26/22 07:53 Tamsulosin 0.4 Mg Cap.Er.24h PO 0.4 mg PC-BRKFST LAN Administration Temazepam 15 mg 11/19/22 02:26 11/25/22 21:55 Temazepam 15 Mg Cap PO 15 mg HS PRN Administration Insomnia Intake and Output 11/25/22 11/26/22 11/26/22 22:59 06:59 14:59 Intake Total 580 720 Output Total 1350 770 100 Balance -770 -50 -100 Intake: Oral 580 720 Output: Urine 1350 770 100 Other: Voiding Method Toilet Urinal Weight 115.5 kg 11/23/22 04:07 11/25/22 04:53 Assessment and Plan Assessment: #1 nonsustained ventricular tachycardia 2 right lower leg cellulitis with diabetic ulcer #3 severe nonischemic cardiomyopathy with an ejection fraction of less than 20% on an echocardiogram done in June #4 status post AICD 5 hypertension #6 hyperlipidemia #7 nicotine dependence #8 noncompliance with follow-up Plan: From cardiology's perspective we will check a BMP and magnesium. We will resume the patient's home dose of metoprolol succinate 50 mg daily. We'll have the ICD interrogated due to recent episodes of vibration, need to assess battery status. Discussed importance of smoking cessation with the patient. Discussed imp ortance of regular follow-up with the patient. We will continue to follow the patient and provide further recommendations accordingly. [employer] ASSISTANT note has been reviewed, I agree with a documented findings and plan of care. Patient was seen and examined.
[2022-11-26 12:04] LABS: Glucose,Whole Blood 134 mg/dL (70-110)
[2022-11-26] MEDS ORDERED: LIDOCAINE 1% INJ 10MG/ML (5 ML VIAL-PF) SQ ONE (13:38)
--- NOTE | 2022-11-26 14:06 | IR ---
PICC LINE PLACEMENT: HISTORY: Infection requiring long-term antibiotic therapy PROCEDURE: Ultrasound and fluoroscopic guidance of PICC line placement. COMPLICATIONS: None ANESTHESIA: 1. 1% Lidocaine locally. FINDINGS/TECHNIQUE: The procedure was explained to the patient. The risks, complications, benefits and alternatives were discussed and any questions were answered. Informed consent was obtained. The patient was placed supine on the fluoroscopic table and prepped and draped in the usual sterile fash ion. Utilizing a 21 gauge needle and sonographic and fluoroscopic guidance, access in the right bas ilic vein was achieved and there is placement of a 0.018 guidewire. The vein is patent. A 4-F sheat h was placed over the guidewire. The guidewire and dilator were removed and a 4-F. PICC line was lindsey yovani through the sheath with the tip at the level of the SVC. The sheath was removed, the catheter wa s flushed and sutured into position. The patient was stable throughout the procedure and remained st able upon discharge from the Department of Radiology. The vein puncture was patent under ultrasound. A shook scale image was obtained to document patency of the vein punctured. All elements of the maximal barrier technique were utilized. FLUOROSCOPY TIME: DAP 1.11Gy cm2 IMPRESSION: Successful PICC line placement under ultrasound and fluoroscopic guidance.
[2022-11-26 15:30] VITALS: BP 97/67; PULSE 90; TEMP 98.4
--- NOTE | 2022-11-26 20:18 | P.DS ---
Providers Date of admission: 11/18/22 00:08 Expected date of discharge: 11/26/22 Attending physician: Buck Johnson Consults: 11/18/22 02:19 Consult Physician Routine Consulting Provider: Yesenia Santoyo Consult Reason/Comments: sepsis Do you want consulting provider notified?: Yes, Notify in am 11/18/22 09:19 Consult Physician Urgent Consulting Provider: Martin Kaur Consult Reason/Comments: right leg swelling Do you want consulting provider notified?: Yes 11/26/22 09:35 Consult Physician Routine Consulting Provider: [facility] Consult Reason/Comments: run of 14 v-tach Do you want consulting provider notified?: Yes Primary care physician: [facility] Course: Hospital course: Presents because of right swollen worm lower leg which he says that is been going on for about 2 weeks and got worse over the last 4 days his swelling mainly in the middle part of the right leg and there is to try to ulcers with very scant yellowish discharge from the lower wound, H ulcer is about 1-2 inch in diameter with right base. With surrounding redness swelling and tenderness. He has some mild dyspepsia and headache but denies abdominal pain, no chest p ain, no dyspnea. No nausea vomiting diarrhea, no urinary complaints. Patient denies history of trauma Patient has fever of 101.1 on admission. CBC showed leukocytosis of 23,000. INR is unremarkable. Sodium 1:30. Creatinine 1.1 BUN elevated at 40. Glucose 147 and 159. Liver Enzymes not elevated. EKG: Sinus tachycardia with occasional PVCs, poor R-wave progression, low voltage, looks similar to old EKG from 07/16/2022 Ultrasound of the legs showing no evidence of DVT of the right lower extremity but there is prominent right inguinal lymph nodes Patient was started on IV vancomycin and admitted with infectious disease consult 11/19/2022 Patient is evaluated today sitting up at the edge of the bed. He continues to report significant pain to his right lower extremity. He is receiving IV D ilaudid for this as well as his home morphine instant release pain medication. Patient underwent I&D of the right heel today with Dr. Kaur. Surgical cultures were taken. Patient had a foot xray done which is showing no amputation defect involving the distal one third of the fifth metatarsal with some irregularity at the base of the fifth proximal phalanx versus a probable partial amputation. There is also a small soft tissue defect of the oblique image possible ulcer at this level laterally. There is no bony destruction to suggest osteoarthritis the level of the lateral plantar surface at the midfoot level. He remains on IV Unasyn, IV vancomycin with infectious disease following the cultures. Patient was started on a IV fluids yesterday secondary to an increase in creatinine today is 1.55. His oral Lasix has been stopped. Blood pressure on the lower side 104/71. 11/20/2022 Patient evaluated today resting in bed. Patient was receiving IV fluids overnight and today his creatinine is up to 1.9. He had a bladder scan done at greater than 500 and patient was able to void. He does states he usually has to walk around and stand to urinate and he cannot urinate lying down. He is unable to ambulate secondary to pain and wound of the right foot/heel. Renal ultrasound is showing no hydronephrosis there is splenomegaly, remote insult to the left kidney. There is nonobstructing right-sided nephrolisthiasis. Patient was noted to hav 11/21/2022 Patient admitted with diabetic wound and right leg cellulitis, wound cultures, Proteus, patient is currently covered with Unasyn which is bacteria sensitive to. IV vancomycin was discontinued he is status post I&D. ID team and vascular surgery team on the case. Also he has evidence of acute kidney injury, creatinine improving 1.9 down to 1.5. He has evidence of urinary retention but patient has been declining Munoz catheter and straight cath per staff. Started him on Flomax. His glucose is controlled Levemir 33 units, hemoglobin A1c 9.5% Ultrasound is negative for DVT He has evidence of splenomegaly, patient informed with recommendation to follow up with pyridine recovery operator as an outpatient Dr. Cochran and he agrees He has some anxiety and atelectasis provided 11/22/2022 Patient still treated for his right lower extremity cellulitis and diabetic foot infection in the ankle, he underwent debridement and he has deep wound. Culture is growing Proteus and to a lesser extent currently is negative for staph. He is on Unasyn. Other than that his vitals looks stable, no more fever, blood pressure is better. Creatinine is back to normal 0.9 He has some urinary retention with bladder scan 300-400, he was started on Flomax yesterday, we checked postprocedure residual today was 50 mL only, this problem was discussed with the patient and instructed to follow up with urologist as an outpatient, the contact information for is provided for him on discharge instructions and he verbalized understanding and acceptance 11/23/2022 Patient status post extensive debridement of his left lower extremity infection. He has deep wound. I discussed the case with Dr. Kaur. Patient requires close medical attention and follow-up, otherwise he might lose his lower extremity. The patient still high-risk for this therefore we going to keep him in the hospital rather than discharge and follow-up outpatient. He is hemodynamically stable. Creatinine is at baseline Patient with bilateral leg swelling and patient feels bloated and asked to restart his home dose of Lasix 80 mg twice a day which is added Radha also started and dressed her with close monitoring of blood pressure and creatinine Patient constipation still bothering him, MiraLAX is added. Antibiotic was updated to ceftriaxone by ID team November 24: I assumed care of the patient. From [facility] hospitalist today. Eating fair. Had a bowel movement. Has some pain in his lower extremity. Laying in bed. IV ceftriaxone. Status post right heel wound extensive debridement by Dr. Lugo. Wound care. On oral Lasix. We'll put on fluid restriction 2000 mL day. Discussed with patient.. Patient is due to get a PICC line. For outpatient antibiotics November 25: 18 well. Pain better controlled. Fluid restriction. Awaiting PICC line. Wound care to continue. November 26: Stable. Eating well. Patient to resume his home pain medications. Wound care follow with Dr. Lugo. IV ceftriaxone and Flagyl to be completed as per Dr. Leonardo. Care and advised against smoking. Wound VAC to continue right lower extremity wound Discussion and discharge planning more than 35 minutes Physical examination: VITAL SIGNS: 98.4, 90, 19, 87/67, 95% room air GENERAL: Sitting up, comfortable EYES: Pupils equal. Conjunctiva normal. HEENT: External appearance of nose and ears normal, oral cavity grossly normal. NECK: JVD unable to assess; masses not palpable. HEART: First and second heart sounds are normal; edema present. LUNGS: Respiratory rate increased; diminished breath sounds ABDOMEN: Soft, nontender, liver spleen not palpable, no masses palpable. PSYCH: Alert and oriented x3; mood and affect anxiousl. MUSCULOSKELETAL:No Clubbing/cyanosis;muscles-grossly intact DERMATOLOGICAL: Right heel dressing. With wound VAC INVESTIGATIONS, reviewed in the clinical context: November 25: Sodium 135 potassium 4.7 creatinine 1.19 November 23: White count 9.6 hemoglobin 12.4 platelets 184 potassium 5.1 creatinine 1.1 Right heel wound: Proteus vulgaris. Coagulase-negative staph Ultrasound kidney bladder: Splenomegaly. Nonobstructing right sided nephro lithiasis. Right lower extremity Doppler ultrasound: Negative for DVT Assessment and plan: -Acute right lower leg cellulitis, right heel diabetic ulcer secondary to Proteus. Status post I&D on 11/19, by Dr. Lugo Cultures growing Proteus mirabilis. IV ceftriaxone. For outpatient antibiotics- PICC line. IV ceftriaxone 2 g daily for 40 days Flagyl 500 mg 3 times a day for 30 days -chronic congestive heart failure exacerbation from nonischemic cardiomyopathy systolic dysfunction EF less than 20%: Lasix 80 mg by mouth twice a day. Fluid restriction 2000 mL Strict I's and O's. Toprol-held. Aldactone 25 mg . AICD. Entresto one tablet by mouth twice a day Follow-up Dr. Yared Abbasi cardiology - COPD exacerbation in a current smoker Ventolin. -Diabetes mellitus type 2 chronically on insulin, uncontrolled with hyperglycemia and hypoglycemia. Lantus 30 units subcu hsy . Diabetic diet. Accu-Cheks and sliding scale -Hyperlipidemia -Essential hypertension Toprol-XL - -Obstructive sleep apnea sometimes uses CPAP machine -Diabetic peripheral neuropathy -Anxiety Ativan when necessary -DJD Tylenol when necessary -Chronic nicotine dependence patient cigarette smoker Nicotine patch 14 -AICD -Lower extremity significant venous insufficiency Disposition: Home Plan - Discharge Summary Discharge Rx Participant: Yes New Discharge Prescriptions: New Psyllium Husk 100% [Metamucil Packet] 6 gm PO DAILY packet SILVER sulfADIAZINE CREAM [Silvadene Cream] 1 applic TOPICAL DAILY PRN each PRN Reason: dressing change metroNIDAZOLE [Flagyl] 500 mg PO TID #90 tab Tamsulosin [Flomax] 0.4 mg PO PC-BRKFST #14 cap Nicotine 21Mg/24Hr Patch [Habitrol] 1 patch TRANSDERM DAILY #14 patch cefTRIAXone [Rocephin] 2,000 mg IVP Q24HR #40 each Continue Morphine Sulfate Ir [MSIR] 30 mg PO QID PRN PRN Reason: Pain INSULIN LISPRO (humaLOG) [humaLOG] See Protocol SQ ACHS PRN PRN Reason: HIGH BLOOD SUGAR Spironolactone [Aldactone] 25 mg PO DAILY #30 tab Metoprolol Succinate (ER) [Toprol XL] 50 mg PO DAILY #30 tab Furosemide [Lasix] 80 mg PO BID Sacubitril/Valsartan [Entresto 24 mg-26 mg Tablet] 1 tab PO BID DULoxetine HCL [Cymbalta] 60 mg PO BID Albuterol Inhaler [Ventolin Hfa Inhaler] 2 puff INHALATION RT-QID PRN PRN Reason: Shortness Of Breath Changed Insulin Glargine,Hum.rec.anlog [Toshola Bojorquezostar] 30 units SQ HS #1 Discharge Medication List Albuterol Inhaler [Ventolin Hfa Inhaler] 2 puff INHALATION RT-QID PRN 07/06/22 [History] INSULIN LISPRO (humaLOG) [humaLOG] See Protocol SQ ACHS PRN 07/06/22 [History] Morphine Sulfate Ir [MSIR] 30 mg PO QID PRN 07/06/22 [History] Metoprolol Succinate (ER) [Toprol XL] 50 mg PO DAILY #30 tab 07/10/22 [Rx] Spironolactone [Aldactone] 25 mg PO DAILY #30 tab 07/10/22 [Rx] DULoxetine HCL [Cymbalta] 60 mg PO BID 11/18/22 [History] Furosemide [Lasix] 80 mg PO BID 11/18/22 [History] Sacubitril/Valsartan [Entresto 24 mg-26 mg Tablet] 1 tab PO BID 11/18/22 [History] metroNIDAZOLE [Flagyl] 500 mg PO TID #90 tab 11/23/22 [Rx] Insulin Glargine,Hum.rec.anlog [Tounenoo Solostar] 30 units SQ HS #1 11/26/22 [Rx] Nicotine 21Mg/24Hr Patch [Habitrol] 1 patch TRANSDERM DAILY #14 patch 11/26/22 [Rx] Psyllium Husk 100% [Metamucil Packet] 6 gm PO DAILY packet 11/26/22 [Rx] SILVER sulfADIAZINE CREAM [Silvadene Cream] 1 applic TOPICAL DAILY PRN each 11/26/22 [Rx] Tamsulosin [Flomax] 0.4 mg PO PC-BRKFST #14 cap 11/26/22 [Rx] cefTRIAXone [Rocephin] 2,000 mg IVP Q24HR #40 each 11/26/22 [Rx] Follow up Appointment(s)/Referral(s): Clayton Cochran MD [STAFF PHYSICIAN] - 2 Weeks (Blood disease Dr. for your enlarged spleen. Office stated they will call for appointment time and date.) Stephen Ojeda MD [STAFF PHYSICIAN] - 12/10/22 11:40 am (urinary retension) Hany Rodríguez MD [Primary Care Provider] - 12/05/22 11:00 am [facility], [NON-STAFF] - 1-2 Days ([facility] will call you to schedule your in home visits. Your first visit will be tomorrow 11/27/22. Home Care will teach you how to do the antibiotic infusions and they will put the wound vac on you tomorrow. ) [facility], [REFERRING] - As Needed ([facility] will deliver supplies to your house on the evening of 11/26/22.) Martin Kaur MD [STAFF PHYSICIAN] - 12/03/22 12:45 pm (Office stated to see Dr. Kaur at wound care center. . ) Yesenia Santoyo MD [STAFF PHYSICIAN] - 12/04/22 2:30 pm Cliff Abbasi MD [STAFF PHYSICIAN] - 12/04/22 12:45 pm Patient Instructions/Handouts: Diabetic Foot Ulcers (DC) Activity/Diet/Wound Care/Special Instructions: 3M - Wound vac: [phone] - please call if you have questions about the wound vac fluid restrict 2000 cc/day Discharge Disposition: HOME WITH HOME HEALTH SERVICES
[2022-11-26 22:29] LABS: Magnesium 2.1 mg/dL (1.5-2.4)
[2022-11-26 22:33] LABS: African American GFR (CKD) 74.3 (60.0-200.0); Anion Gap 10.9 mmol/L (10.00-18.00); Blood Urea Nitrogen 12.7 mg/dL (9.0-27.0); Calcium 8.9 mg/dL (8.7-10.3); Carbon Dioxide 29.3 mmol/L (20.0-27.5); Non-African American GFR(CKD) 64.1 (60.0-200.0); Potassium 4.9 mmol/L (3.5-5.5)
--- NOTE | 2022-11-27 12:38 | CDI ---
Documentation Clarification Form Date: 11/27/2022 12:11:18 PM From: Tamiko Tucker RN CCDS Phone: [phone] Admit Date: 11/18/2022 12:08:00 AM Patient Name: Ezequiel Haynes Visit Number: [id number] Discharge Date: 11/26/2022 4:33:00 PM ATTENTION: The Clinical Documentation Specialists (CDI) and [facility] Coding Staff appreciate your assistance in clarifying documentation. Please respond to the clarification below the line at the bottom and electronically sign. The CDI & [facility] Coding staff will review the response and follow-up if needed. Please note: Queries are made part of the Legal Health Record. If you have any questions, please contact the author of this message via ITS. Dr. Buck Johnson Your patient has the documented diagnosis of chronic congestive failure exacerbation, 11/24, Medicine note. Additional information regarding the type and acuity of CHF is requested. History/Risk Factors: 52-year-old male presented with right swollen warm lower leg with ulcer. Medical history: Asthma, CAD, Heart failure, COPD, SVT, DM2 and foot wounds. 11/18, H&P. Clinical Indicators: VS/Pulse OX: 11/23 B/P 123/77; HR 105; Temp 99.8; RR 21; SpO2 95% room air Echocardiogram Results: 07/08/2022 severely impaired LV function with EF of less than 20% with global hypokinesia. 11/24, Medicine note: chronic congestive heart failure exacerbation from nonischemic cardiomyopathy systolic dysfunction EF less than 20%. Lasix 80mg by mouth twice a day. Treatment: 11/19 23 Lasix 60mg PO BID; 11/20 Lasix 40mg IV x 1; 11/23 Lasix 80mg PO BID In your professional opinion, can you please clarify the acuity of CHF if known? [ + ] Acute on Chronic Systolic Heart Failure (reduced EF) [ ] Other, please specify [ ] Unable to determine (Template Last Revised: August 2020) MTDD
--- NOTE | 2022-11-28 07:17 | CDI ---
Documentation Clarification Form Date: 11/28/2022 7:01:36 AM From: Analia Elliott Admit Date: 11/18/2022 12:08:00 AM Patient Name: Ezequiel Haynes Visit Number: [id number] Discharge Date: 11/26/2022 4:33:00 PM ATTENTION: The Clinical Documentation Specialists (CDI) and [facility] Coding Staff appreciate your assistance in clarifying documentation. Please respond to the clarification below the line at the bottom and electronically sign. The CDI & [facility] Coding staff will review the response and follow-up if needed. Please note: Queries are made part of the Legal Health Record. If you have any questions, please contact the author of this message via ITS. Dr. Buck Johnson Per ED notes, H and P and ID consult "Sepsis secondary to acute RLE cellulitis, diabetic ulcer." Documentation of sepsis is not carried through the chart. Please clarify if patient had sepsis or was sepsis ruled out. History/Risk Factors: diabetes foot ulcer with cellulitis. Clinical Indicators: WBC 23.8 Lactic acid: 1.9 Blood cultures: NO growth. Heel culture Proteus Vitals signs: 101.1 F, 113 bpm, 20, 102/86, 96 RA Treatment: IV antibiotics ID Consult: Sepsis Antibiotics: Vancomycin, Rocephin, Unasyn Please clarify if patient had sepsis or was it ruled out: [ + ] Sepsis, present on admission [ ] Sepsis, developed during stay, not present on admission [ ] Sepsis ruled out [ ] Other, please specify [ ] Unable to determine SIRS Criteria: 2 or more of the following may indicate SIRS Temperature < 96.8F (36C) or > 101.0F (38.3C) Heart Rate > 90 bpm Respiratory Rate > 20 breaths/min or PaCO2 < 32 mmHg White Blood Cell Count > 12,000 or < 4,000 cells/mm3 or > 10% bands MTDD
== END 2022-11-26 16:33 | disposition home health service (06) | DRG 853 ==
LOC: EC 21:37 → 4SSUR 11-18 00:08
PROVIDERS: ADMIT Hospitalist; ATTEND Hospitalist
PROC: 0QBL0ZZ Excision of Right Tarsal, Open Approach (ICD-10-PCS; principal; 2022-11-19 07:30)
PROC: 02HV33Z Insertion of Infusion Device into Superior Vena Cava, Percutaneous Approach (ICD-10-PCS; 2022-11-26)
DX: A41.9 Sepsis, unspecified organism (principal); I50.23 Acute on chronic systolic (congestive) heart failure; I47.1 Supraventricular tachycardia; L03.115 Cellulitis of right lower limb; J44.1 Chronic obstructive pulmonary disease with (acute) exacerbation; N17.9 Acute kidney failure, unspecified; E11.628 Type 2 diabetes mellitus with other skin complications; B96.4 Proteus (mirabilis) (morganii) as the cause of diseases classified elsewhere; Z79.4 Long term (current) use of insulin; E11.621 Type 2 diabetes mellitus with foot ulcer; E11.622 Type 2 diabetes mellitus with other skin ulcer; E78.5 Hyperlipidemia, unspecified; F41.9 Anxiety disorder, unspecified; F90.9 Attention-deficit hyperactivity disorder, unspecified type; J45.909 Unspecified asthma, uncomplicated; I11.0 Hypertensive heart disease with heart failure; I25.10 Atherosclerotic heart disease of native coronary artery without angina pectoris; G89.29 Other chronic pain; I87.2 Venous insufficiency (chronic) (peripheral); I25.2 Old myocardial infarction; K21.9 Gastro-esophageal reflux disease without esophagitis; R33.9 Retention of urine, unspecified; M19.90 Unspecified osteoarthritis, unspecified site; G47.33 Obstructive sleep apnea (adult) (pediatric); I25.5 Ischemic cardiomyopathy; M54.2 Cervicalgia; F17.210 Nicotine dependence, cigarettes, uncomplicated; K59.00 Constipation, unspecified; R16.1 Splenomegaly, not elsewhere classified; L97.519 Non-pressure chronic ulcer of other part of right foot with unspecified severity; Z79.51 Long term (current) use of inhaled steroids; Z79.899 Other long term (current) drug therapy; Z95.810 Presence of automatic (implantable) cardiac defibrillator; Z98.1 Arthrodesis status; Z86.14 Personal history of Methicillin resistant Staphylococcus aureus infection; Z91.199 Patient's noncompliance with other medical treatment and regimen due to unspecified reason; Z88.1 Allergy status to other antibiotic agents; Z88.8 Allergy status to other drugs, medicaments and biological substances
CPT/HCPCS: 36415; 36573; 71045; 76770; 80048; 80053; 80202; 81003; 82565; 83036; 83605; 83735; 83880; 85025; 85610; 85730; 87070; 87075; 87077; 87186; 87205; 93005; 94640; 94760; 96365; 96366; 96375; 96376; 99285

== ENCOUNTER → 2022-12-13 | Outpatient (CLI) | payer MEDICARE, OTHER ==
--- NOTE | 2022-12-13 14:00 | XR ---
EXAM TYPE: LUMBAR SPINE X RAY SERIES COMPARISON: NONE HISTORY: Pain TECHNIQUE: 4 views are submitted. FINDINGS: Alignment is anatomic. The pedicles are intact. The transverse processes are intact. There is no s pondylolysis or spondylolisthesis. Postsurgical changes lower lumbar spine suggestive of laminectomy . Moderate degenerative disc disease L4-5 and L5-S1. Multilevel facet arthropathy. Surgical clips in the right upper quadrant. Retained debris correlate for constipation. IMPRESSION: 1. Postsurgical changes with multilevel degenerative disc disease and facet arthropathy suspect multi level foraminal encroachment..
== END | disposition home or self-care (01) ==
LOC: RADXRMAIN 13:34
PROVIDERS: ATTEND Physical Medicine & Rehabilitation
DX: M51.36 Other intervertebral disc degeneration, lumbar region (principal); M47.816 Spondylosis without myelopathy or radiculopathy, lumbar region; M99.73 Connective tissue and disc stenosis of intervertebral foramina of lumbar region
CPT/HCPCS: 72110

== ENCOUNTER → 2022-12-13 | Outpatient (CLI) | payer MEDICARE, OTHER ==
[2022-12-13 14:29] LABS: African American GFR (CKD) >90 (>60 ml/min/1.73 sqM); Blood Urea Nitrogen 37 mg/dL (9-20); Non-African American GFR(CKD) >90 (>60 ml/min/1.73 sqM)
--- NOTE | 2022-12-13 15:59 | CT ---
EXAMINATION TYPE: CT angio abd aorta w/Runoff CT DLP: 2424.5 mGycm, Automated exposure control for dose reduction was used. DATE OF EXAM: 12/13/2022 3:37 PM COMPARISON: CT abdomen pelvis 07/09/2020 CLINICAL INDICATION:Male, 52 years old with history of I77.9 disorder of arteries; Diabetic wound on right foot. Check blood flow. TECHNIQUE: Multiple thin slice sub-millimeter images were obtained through the abdomen, pelvis, and l ower extremities before and after administration of contrast. Patient was given Isovue 370, 100 cc i ntravenously. 3-D reconstructed images and maximum intensity projection images were obtained of the abdomen, pelvis, and lower extremities. FINDINGS: CTA Abdomen and pelvis: The abdominal aorta does not demonstrate aneurysmal dilatation. Mild atheros clerotic plaquing is identified within the abdominal aorta. The origins of the superior mesenteric a rtery, renal arteries, inferior mesenteric artery, and celiac axis are patent. There are 2 left renal arteries. The iliac vessels are normal in morphology. Mild atherosclerotic plaquing with some mural thrombus formation is identified in the common iliac arteries. CTA Lower extremities: Right: The common femoral and superficial femoral arteries are patent. The popliteal artery is patent . Anterior and posterior tibial arteries as well as the peroneal artery are patent. Anterior and post erior tibial arteries cross the ankle. Left: The common femoral and superficial femoral arteries are patent. The popliteal artery is patent. Anterior and posterior tibial arteries as well as the peroneal artery are patent. Anterior and poste rior tibial arteries cross the ankle. VISCERA: The liver, spleen, adrenal glands, kidneys, pancreas, and gallbladder are not optimally enha nced due the arterial phase utilized. LIVER: Unremarkable GALLBLADDER AND BILE DUCTS: The gallbladder is surgically absent. PANCREAS: Unremarkable. SPLEEN: Lobulated morphology of the spleen. ADRENAL GLANDS: Unremarkable right adrenal gland. Nonspecific thickening of the left adrenal likely r elated to adrenal hyperplasia. KIDNEYS AND URETERS: No evidence of hydronephrosis or renal calculus. Wedge-shaped regions of low att enuation with cortical thinning identified involving both kidneys suggestive of bilateral infarcts. PELVIS BLADDER: Unremarkable REPRODUCTIVE: Unremarkable. ABDOMEN & PELVIS STOMACH AND BOWEL: Small hiatal hernia, duodenum is unremarkable. Moderate colonic stool burden. No e vidence of bowel obstruction. PERITONEUM: No evidence of pneumoperitoneum or free fluid. VASCULATURE: No evidence of aortic aneurysm. MUSCULOSKELETAL: No acute osseous abnormalities. Postsurgical changes with laminectomy changes at L4- L5. Mild multilevel degenerative disease. Edematous appearance with soft tissue wound along the plant ar and lateral surface of the right midfoot. No definitive organized fluid collection. There is assoc iated skin thickening. No definitive osseous erosion. LYMPH NODES: Few mildly prominent right inguinal lymph nodes identified measuring less than 1 cm shor t axis. SOFT TISSUE/ABDOMINAL WALL: Patulous bilaterally inguinal rings. LOWER CHEST: Linear scarring and/or atelectasis within the right lower lobe. Calcified granulomas wit hin the right lower lobe. Moderate cardiomegaly. No pericardial effusion. Partial visualization of AI CD lead within the right ventricle. IMPRESSION 1. No evidence of vascular occlusion. 2. Mild atherosclerotic disease involving abdominal aorta and lower extremity vasculature. 3. At least two vessels are seen crossing the ankle joint. 4. Soft tissue wound involving the plantar and lateral aspect of the right midfoot with associated so ft tissue edema. No organized fluid collection identified. 5. Multifocal wedge-shaped regions of low-attenuation with cortical thinning involving both kidneys s uggestive of prior infarcts. 6. Mild colonic stool burden.
== END | disposition home or self-care (01) ==
LOC: RADCTMAIN 13:23
PROVIDERS: ATTEND Surgery Vascular Surgery
DX: I77.9 Disorder of arteries and arterioles, unspecified (principal); E11.621 Type 2 diabetes mellitus with foot ulcer; R60.0 Localized edema
CPT/HCPCS: 82565; 84520; 75635; 36415; Q9967

== ENCOUNTER 2023-05-14 15:30 | Inpatient (IN) | payer MEDICARE, OTHER ==
--- NOTE | 2023-05-14 16:46 | ED ---
General Adult HPI - General Source: patient, RN notes reviewed Mode of arrival: ambulatory Limitations: no limitations <Serene Forrest - Last Filed: 05/14/23 16:46> - General Source: RN notes reviewed, old records reviewed Limitations: no limitations - History of Present Illness -: days(s) Location: left, right, lower extremity Radiation: non-radiation Severity scale (1-10): 4 Quality: dull Consistency: constant Improves with: none Worsens with: none Associated Symptoms: denies other symptoms Treatments Prior to Arrival: none <Dangelo Harrison - Last Filed: 05/18/23 17:00> - General Chief complaint: Skin/Abscess/Foreign Body Stated complaint: ulcer right foot Time Seen by Provider: 05/14/23 16:44 - History of Present Illness Initial comments: Patient is a 52 year old male who presents to the emergency department for right foot ulcer. Patient follows with the wound clinic states also has worsened over the past week. He reports mild pain. No fever, chills, nausea, vomiting. (Serene Forrest) This is a 52-year-old male to the emergency room for evaluation. Patient presents today for evaluation of ulcer foot ulcer. No history of ulcers and diabetic foot ulcers with significant neuropathy (Dangelo Harrison) - Related Data Home Medications Medication Instructions Recorded Confirmed Albuterol Inhaler [Ventolin Hfa 2 puff INHALATION RT-QID PRN 07/06/22 05/14/23 Inhaler] INSULIN LISPRO (humaLOG) [humaLOG] 5 - 10 unit SQ ACHS PRN 07/06/22 05/14/23 Morphine Sulfate Ir [MSIR] 30 mg PO QID 07/06/22 05/14/23 DULoxetine HCL [Cymbalta] 60 mg PO BID 11/18/22 05/14/23 Furosemide [Lasix] 80 mg PO BID 11/18/22 05/14/23 Sacubitril/Valsartan [Entresto 24 1 tab PO BID 11/18/22 05/14/23 mg-26 mg Tablet] Cyclobenzaprine [Flexeril] 10 mg PO QID 05/14/23 05/14/23 Insulin Glargine,Hum.rec.anlog 100 units SQ BID 05/14/23 05/14/23 [Trudi Bailey] Zolpidem [Ambien] 10 mg PO HS PRN 05/14/23 05/14/23 Previous Rx's Medication Instructions Recorded Spironolactone [Aldactone] 25 mg PO DAILY #30 tab 07/10/22 Allergies Allergy/AdvReac Type Severity Reaction Status Date / Time azithromycin Allergy Anaphylaxis Verified 05/16/23 16:27 gemfibrozil [From Lopid] Allergy Rash/Hives Verified 05/16/23 16:27 Review of Systems ROS Other: All systems not noted in ROS Statement are negative. <Serene Forrest - Last Filed: 05/14/23 16:46> ROS Other: All systems not noted in ROS Statement are negative. <Dangelo Harrison - Last Filed: 05/18/23 17:00> ROS Statement: Those systems with pertinent positive or pertinent negative responses have been documented in the HPI. Past Medical History Past Medical History: Asthma, Coronary Artery Disease (CAD), Chest Pain / Angina, Heart Failure, COPD, Diabetes Mellitus, GERD/Reflux, Hyperlipidemia, Hypertension, Myocardial Infarction ([place]), Pneumonia, Sleep Apnea/CPAP/BIPAP, Supraventricular Tachycardia (SVT) Additional Past Medical History / Comment(s): Ischemic cardiomyopathy, chronic CHF, SVT, IDDM type II, KAMINI with CPAP occasionally used, chronic cervical/back pain, DJD, diabetic foot wounds x 4 months. Last Myocardial Infarction Date:: 12/11/17 History of Any Multi-Drug Resistant Organisms: MRSA Date of last positivie culture/infection: 03/10/20 MDRO Source:: MRSA TOE Past Surgical History: Adenoidectomy, AICD, Back Surgery, Cholecystectomy, EPS, Heart Catheterization, Pacemaker, Tonsillectomy Additional Past Surgical History / Comment(s): 12/10/17 cardiac cath, previous ca rdiac cath, 09/02/14 AICD/pacer, EGD/colonoscopy, low back surgery with fusion. Past Anesthesia/Blood Transfusion Reactions: Motion Sickness Additional Past Anesthesia/Blood Transfusion Reaction / Comment(s): Pt states he received blood with back surgery without reaction. Type of Cardiac Device: Permanent Pacemaker, AICD Device Placement Date:: 09-02-14 Past Psychological History: ADD/ADHD, Anxiety Smoking Status: Current every day smoker Past Alcohol Use History: Occasional Past Drug Use History: Marijuana - Past Family History Father Additional Family Medical History / Comment(s): Pt has not kept in close contact with his father for many yrs. Father was an alcoholic and pt believes he has from cirrhosis of the liver. Mother History Unknown: Yes Additional Family Medical History / Comment(s): Pt is not in contact with his mother or his father who he has heard had . <Serene Forrest - Last Filed: 05/14/23 16:46> General Exam Limitations: no limitations <Serene Forrest - Last Filed: 05/14/23 16:46> Limitations: no limitations General appearance: alert, in no apparent distress Head exam: Present: atraumatic, normocephalic, normal inspection Eye exam: Present: normal appearance, PERRL, EOMI. Absent: scleral icterus, conjunctival injection, periorbital swelling ENT exam: Present: normal exam, mucous membranes moist Neck exam: Present: normal inspection. Absent: tenderness, meningismus, lymphadenopathy Respiratory exam: Present: normal lung sounds bilaterally. Absent: respiratory distress, wheezes, rales, rhonchi, stridor Cardiovascular Exam: Present: regular rate, normal rhythm, normal heart sounds. Absent: systolic murmur, diastolic murmur, rubs, gallop, clicks GI/Abdominal exam: Present: soft, normal bowel sounds. Absent: distended, tenderness, guarding, rebound, rigid Extremities exam: Present: normal inspection, full ROM, normal capillary refill. Absent: tenderness, pedal edema, joint swelling, calf tenderness Back exam: Present: normal inspection Neurological exam: Present: alert, oriented X3, CN II-XII intact Psychiatric exam: Present: normal affect, normal mood Skin exam: Present: warm, dry, intact, normal color. Absent: rash <Dangelo Harrison - Last Filed: 05/18/23 17:00> - General Exam Comments Initial Comments: Visual Physical Exam Vital signs reviewed General: Well-appearing, nontoxic, no acute distress. Head: Normocephalic, atraumatic Eyes: PERRLA, EOMI ENT: Airway patent Chest: Nonlabored breathing Skin: No visual rash, normal skin tone Neuro: Alert and oriented 3 Musculoskeletal: No gross abnormalities (Serene Forrest) Course <Dangelo Harrison - Last Filed: 05/18/23 17:00> Vital Signs 05/14/23 05/14/23 05/14/23 16:19 22:19 23:45 Temperature 98.3 F Pulse Rate 107 H 94 100 Pulse Rate [ Pulse Oximetery ] Respiratory 20 20 20 Rate Blood Pressure 93/63 91/60 90/62 Blood Pressure [Right Arm] O2 Sat by Pulse 95 95 97 Oximetry 05/15/23 05/15/23 05/15/23 04:18 05:20 07:53 Temperature Pulse Rate 93 86 100 Pulse Rate [ Pulse Oximetery ] Respiratory 18 18 20 Rate Blood Pressure 81/58 87/52 102/77 Blood Pressure [Right Arm] O2 Sat by Pulse 93 L 93 L 95 Oximetry 05/15/23 05/15/23 05/15/23 08:27 11:41 11:51 Temperature Pulse Rate 102 H 89 Pulse Rate [ 109 H Pulse Oximetery ] Respiratory Rate Blood Pressure Blood Pressure 102/77 [Right Arm] O2 Sat by Pulse 93 L Oximetry - Reevaluation(s) Reevaluation #1: 05/14/23 21:14 Medical record is reviewed (Dangelo Harrison) Reevaluation #2: 05/14/23 21:15 No change in symptoms here in the ER (Dangelo Harrison) Reevaluation #3: 05/14/23 21:15 Patient informed results questions answered (Dangelo Harrison) Reevaluation #4: 05/14/23 21:14 Was pt. sent in by a medical professional or institution (, PA, TOBACCO SPRAYER, urgent care, hospital, or fdc...) When possible be specific @ -no Did you speak to anyone other than the patient for history (EMS, parent, family, police, friend...)? What history was obtained from this source @ -no Did you review nursing and triage notes (agree or disagree)? Why? @ -agree Are old charts reviewed (outside hosp., previous admission, EMS record, old EKG, old radiological studies, urgent care reports/EKG's, fdc records)? Report findings @ -yes Differential Diagnosis (chest pain, altered mental status, abdominal pain women, abdominal pain men, vaginal bleeding, weakness, fever, dyspnea, syncope, headache, dizziness, GI bleed, back pain, seizure, CVA, palpatations, mental health, musculoskeletal)? @ -prior EKG interpreted by me (3pts min.). @ -no X-rays interpreted by me (1pt min.). @ -yes CT interpreted by me (1pt min.). @ -no U/S interpreted by me (1pt. min.). @ -no What testing was considered but not performed or refused? (CT, X-rays, U/S, labs)? Why? @ -none What meds were considered but not given or refused? Why? @ -none Did you discuss the management of the patient with other professionals (professionals i.e. Dr., PA, TOBACCO SPRAYER, lab, RT, psych nurse, high school social studies teacher, fusing furnace loader, teacher, donor relations officer, bottle caser)? Give summary @ -no Was smoking cessation discussed for >3mins.? @ -no Was critical care preformed (if so, how long)? @ -no Were there social determinants of health that impacted care today? How? (Homelessness, low income, unemployed, alcoholism, drug addiction, transportation, low edu. Level, literacy, decrease access to med. care, residential, rehab)? @ -none Was there de-escalation of care discussed even if they declined (Discuss DNR or withdrawal of care, Hospice)? DNR status @ -no What co-morbidities impacted this encounter? (DM, HTN, Smoking, COPD, CAD, C ancer, CVA, ARF, Chemo, Hep., AIDS, mental health diagnosis, sleep apnea, morbid obesity)? @ -none Was patient admitted / discharged? Hospital course, mention meds given and route, prescriptions, significant lab abnormalities, going to OR and other pertinent info. @ - 52 male to the emergency department for evaluation with history of significant wound diabetic ulcers with severe peripheral neuropathy with no improvement in outpatient wound care, patient be admitted for IV antibiotics Admitted Undiagnosed new problem with uncertain prognosis? @ -no Drug Therapy requiring intensive monitoring for toxicity (Heparin, Nitro, Insulin, Cardizem)? @ -no Were any procedures done? @ -no Diagnosis/symptom? @ -Diabetic ulcer Acute, or Chronic, or Acute on Chronic? @ -Acute Uncomplicated (without systemic symptoms) or Complicated (systemic symptoms)? @ -Complicated Side effects of treatment? @ -no Exacerbation, Progression, or Severe Exacerbation? @ -exacerbation Poses a threat to life or bodily function? How? (Chest pain, [place], [place], pneumonia, PE, COPD, DKA, ARF, appy, cholecystitis, CVA, Diverticulitis, Homicidal, Suicidal, threat to staff... and all critical care pts) @ -yes (Dangelo Harrison) - Consultations Consultation #1: Spoke with Dr. Manzo who agrees to admission (Dangelo Harrison) Medical Decision Making <Serene Forrest - Last Filed: 05/14/23 16:46> - Lab Data Result diagrams: 05/15/23 05:53 05/18/23 10:21 - Radiology Data Radiology results: report reviewed (X-ray bilateral feet negative for acute disease), image reviewed <Dangelo Harrison - Last Filed: 05/18/23 17:00> - Medical Decision Making I performed the QuickNote portion of this chart - Serene Forrest PA-C (Serene Forrest) 52 male to the emergency department for evaluation with history of significant wound diabetic ulcers with severe peripheral neuropathy with no improvement in outpatient wound care, patient be admitted for IV antibiotics (Dangelo Harrison) - Lab Data Lab Results 05/14/23 05/14/23 05/14/23 Range/Units 17:06 17:06 17:06 WBC 15.0 H (3.8-10.6) k/uL RBC 4.51 (4.30-5.90) m/uL Hgb 13.0 (13.0-17.5) gm/dL Hct 40.9 (39.0-53.0) % MCV 90.6 (80.0-100.0) fL MCH 28.8 (25.0-35.0) pg MCHC 31.8 (31.0-37.0) g/dL RDW 14.0 (11.5-15.5) % Plt Count 254 (150-450) k/uL MPV 8.6 Neutrophils % 88 % Lymphocytes % 7 % Monocytes % 4 % Eosinophils % 1 % Basophils % 0 % Neutrophils # 13.1 H (1.3-7.7) k/uL Lymphocytes # 1.0 (1.0-4.8) k/uL Monocytes # 0.6 (0-1.0) k/uL Eosinophils # 0.1 (0-0.7) k/uL Basophils # 0.0 (0-0.2) k/uL Hypochromasia Slight Sodium 134 L (137-145) mmol/L Potassium 4.2 (3.5-5.1) mmol/L Chloride 94 L (98-107) mmol/L Carbon Dioxide 26 (22-30) mmol/L Anion Gap 14 mmol/L BUN 58 H (9-20) mg/dL Creatinine 1.23 (0.66-1.25) mg/dL Est GFR (CKD-EPI)AfAm 77 (>60 ml/min/1.73 sqM) Est GFR (CKD-EPI)NonAf 67 (>60 ml/min/1.73 sqM) Glucose 287 H (74-99) mg/dL Lactic Ac Sepsis Rflx Plasma Lactic Acid Shane 2.6 H* (0.7-2.0) mmol/L Calcium 9.2 (8.4-10.2) mg/dL Phosphorus 3.9 (2.5-4.5) mg/dL Magnesium 1.9 (1.6-2.3) mg/dL Total Bilirubin 1.2 (0.2-1.3) mg/dL AST 28 (17-59) U/L ALT 25 (4-49) U/L Alkaline Phosphatase 178 H (38-126) U/L Total Protein 7.7 (6.3-8.2) g/dL Albumin 3.4 L (3.5-5.0) g/dL 05/14/23 05/14/23 Range/Units 18:04 22:23 WBC (3.8-10.6) k/uL RBC (4.30-5.90) m/uL Hgb (13.0-17.5) gm/dL Hct (39.0-53.0) % MCV (80.0-100.0) fL MCH (25.0-35.0) pg MCHC (31.0-37.0) g/dL RDW (11.5-15.5) % Plt Count (150-450) k/uL MPV Neutrophils % % Lymphocytes % % Monocytes % % Eosinophils % % Basophils % % Neutrophils # (1.3-7.7) k/uL Lymphocytes # (1.0-4.8) k/uL Monocytes # (0-1.0) k/uL Eosinophils # (0-0.7) k/uL Basophils # (0-0.2) k/uL Hypochromasia Sodium (137-145) mmol/L Potassium (3.5-5.1) mmol/L Chloride (98-107) mmol/L Carbon Dioxide (22-30) mmol/L Anion Gap mmol/L BUN (9-20) mg/dL Creatinine (0.66-1.25) mg/dL Est GFR (CKD-EPI)AfAm (>60 ml/min/1.73 sqM) Est GFR (CKD-EPI)NonAf (>60 ml/min/1.73 sqM) Glucose (74-99) mg/dL Lactic Ac Sepsis Rflx Y Plasma Lactic Acid Shane 1.9 (0.7-2.0) mmol/L Calcium (8.4-10.2) mg/dL Phosphorus (2.5-4.5) mg/dL Magnesium (1.6-2.3) mg/dL Total Bilirubin (0.2-1.3) mg/dL AST (17-59) U/L ALT (4-49) U/L Alkaline Phosphatase (38-126) U/L Total Protein (6.3-8.2) g/dL Albumin (3.5-5.0) g/dL Disposition <Serene Forrest - Last Filed: 05/14/23 16:46> Is patient prescribed a controlled substance at d/c from ED?: No Time of Disposition: 21:10 <Dangelo Harrison - Last Filed: 05/18/23 17:00> Clinical Impression: Foot osteomyelitis, left, Cellulitis, Wound infection, Chronic ulcer of right foot with fat layer exposed, Type 2 diabetes mellitus with right diabetic foot ulcer Disposition: ADMITTED IP TO THIS HOSP Condition: Fair
[2023-05-14 17:30] LABS: Basophils % (A) 0 %; Eosinophils # (A) 0.1 k/uL (0-0.7); Eosinophils % (A) 1 %; HCT 40.9 % (39.0-53.0); Hypochromasia Slight; Lymphocytes % (A) 7 %; MCH 28.8 pg (25.0-35.0); MCHC 31.8 g/dL (31.0-37.0); MCV 90.6 fL (80.0-100.0); Mean Platelet Volume 8.6; Monocytes # (A) 0.6 k/uL (0-1.0); Monocytes % (A) 4 %; Neutrophils # (A) 13.1 k/uL (1.3-7.7); Neutrophils % (A) 88 %; Platelet Count 254 k/uL (150-450); RBC 4.51 m/uL (4.30-5.90)
[2023-05-14 17:56] LABS: ALT 25 U/L (4-49); AST 28 U/L (17-59); African American GFR (CKD) 77 (>60 ml/min/1.73 sqM); Albumin 3.4 g/dL (3.5-5.0); Alkaline Phosphatase 178 U/L (38-126); Anion Gap 14 mmol/L; Blood Urea Nitrogen 58 mg/dL (9-20); Calcium 9.2 mg/dL (8.4-10.2); Carbon Dioxide 26 mmol/L (22-30); Chloride 94 mmol/L (98-107); Glucose 287 mg/dL (74-99); Non-African American GFR(CKD) 67 (>60 ml/min/1.73 sqM); Potassium 4.2 mmol/L (3.5-5.1); Sodium 134 mmol/L (137-145); Total Bilirubin 1.2 mg/dL (0.2-1.3); Total Protein 7.7 g/dL (6.3-8.2)
[2023-05-14] MEDS ORDERED: SODIUM CHLORIDE 0.9% 1,000 ML IV STA (21:12)
[2023-05-14] MEDS ORDERED: MORPHINE SULFATE 4 MG/ML SYRINGE IV STA (21:12)
[2023-05-14] MEDS ORDERED: VANCOMYCIN IV PER PHARMACY 1 EACH MISC MISCELLANE PRN (21:12)
[2023-05-14] MEDS ORDERED: VANCOMYCIN 1,750 MG in SODIUM CHLORIDE 0.9% 500 ML 500 ML IVPB STA (21:18)
[2023-05-14] MEDS ORDERED: NALOXONE 0.4 MG/ML 1 ML VIAL IV PRN (21:24)
[2023-05-14] MEDS ORDERED: MORPHINE SULFATE 4 MG/ML SYRINGE IV PRN (21:24)
[2023-05-14] MEDS ORDERED: PIPERACILLIN-TAZOBACTAM 3.375 GM in SODIUM CHLORIDE 0.9% 100 ML IVPB STA (21:28)
[2023-05-14 22:12] LABS: Magnesium 1.9 mg/dL (1.6-2.3); Phosphorus 3.9 mg/dL (2.5-4.5)
[2023-05-14] MEDS: ONDANSETRON 4 MG/2 ML VIAL IVP PRN (22:17)
[2023-05-14] MEDS ORDERED: ZOLPIDEM 5 MG TAB PO PRN (22:22)
[2023-05-14] MEDS ORDERED: DEXTROSE 50% SYRINGE 50 ML IVP PRN ×2 (22:23)
[2023-05-14] MEDS ORDERED: CALCIUM CARBONATE 500 MG CHEWABLE PO PRN (22:36)
[2023-05-14] MEDS ORDERED: MELATONIN 3 MG TABLET PO PRN (22:36)
[2023-05-14] MEDS ORDERED: ACETAMINOPHEN TAB 325 MG TAB PO PRN (22:36)
[2023-05-14] MEDS ORDERED: ALPRAZolam 0.25 MG TAB PO PRN (22:36)
--- NOTE | 2023-05-14 22:38 | P.HPIM ---
History of Present Illness H&P Date: 05/14/23 Chief Complaint: Right foot wound This is a 52-year-old patient, follows with Dr. Rodríguez. Chronic stable medical condition include CHF EF less than 20%, COPD, diabetes mellitus type 2, hypertension, hyperlipidemia, obstructive sleep apnea, anxiety, AICD, lower extremity venous insufficiency. Patient had lower extremity wounds and has been followed by [facility] and Dr. Lugo from vascular. Patient has not been able to make a wound care center regularly because of transportation issues. Now presents with worsening wound on the right foot. Has had previous debridement of same. It is draining. Somewhat foul-smelling.. Patient had some chills. Review of systems: GEN.: Tired EYES: None HEENT: None NECK: None RESPIRATORY: [Baseline some shortness of breath CARDIOVASCULAR: None GASTROINTESTINAL: None GENITOURINARY: None MUSCULOSKELETAL: Joint pains LYMPHATICS: None HEMATOLOGICAL: None PSYCHIATRY: None NEUROLOGICAL: Some neuropathy Social history: Lives with his 20-year-old son. Disabled. 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 Smoking 2 packs a day for most of his life now down to half a pack a day. Stop drinking heavy alcohol about 20 years ago. Has done marijuana. Physical examination: VITAL SIGNS: 98.3, 107, 20, 93/63, 95% room air GENERAL: BMI 32.3, sitting up in a chair EYES: Pupils equal. Conjunctiva normal. HEENT: External appearance of nose and ears normal, oral cavity grossly normal. NECK: JVD unable to assess; masses not palpable. HEART: First and second heart sounds are normal; edema present. LUNGS: Respiratory rate normal; diminished breath sounds ABDOMEN: Soft, nontender, liver spleen not palpable, no masses palpable. PSYCH: Alert and oriented x3; mood and affect anxiousl. MUSCULOSKELETAL:No Clubbing/cyanosis;muscles-grossly intact DERMATOLOGICAL: Right foot wound. More details and nursing notes. INVESTIGATIONS, reviewed in the clinical context: 05/14/2023: White count 15 hemoglobin 13 platelets 254 sodium 134 potassium 4.2 BUN 58 creatinine 1.23 lactic acid 2.6 Assessment and plan: -Acute right lower leg cellulitis, infected right heel diabetic ulcer with prior history of debridement. Has not been able to follow the wound care center because of transport. Wound swab for Gram stain and culture. IV Zosyn. Consultation to [facility] and Dr. Lugo from vascular. -Sepsis from right leg wound. IV Zosyn. Hold off IV fluids because of CHF. -chronic congestive heart failure nonischemic cardiomyopathy systolic dysfunction EF less than 20%: Lasix 80 mg by mouth twice a day. Aldactone 25 mg . Entresto one tablet by mouth twice a day AICD. - COPD current smoker Ventolin. -Diabetes mellitus type 2 chronically on insulin, uncontrolled with hypergl ycemia and hypoglycemia. Lantus 80 units subcu twice a day . Diabetic diet. Accu-Cheks and sliding scale -Hyperlipidemia -Essential hypertension Entresto -Obstructive sleep apnea sometimes uses CPAP machine -Diabetic peripheral neuropathy -Anxiety Ativan when necessary -DJD Tylenol when necessary -Chronic nicotine dependence patient cigarette smoker Nicotine patch 14 -AICD -Lower extremity chronic venous insufficiency Discussed with patient. Consult ID and Dr. Lugo. Resume home medications. Given the complexity and severity of patient's condition expect the patient to be in the hospital at least for 2 overnights Past Medical History Past Medical History: Asthma, Coronary Artery Disease (CAD), Chest Pain / Angina, Heart Failure, COPD, Diabetes Mellitus, GERD/Reflux, Hyperlipidemia, Hypertension, Myocardial Infarction ([place]), Pneumonia, Sleep Apnea/CPAP/BIPAP, Supraventricular Tachycardia (SVT) Additional Past Medical History / Comment(s): Ischemic cardiomyopathy, chronic CHF, SVT, IDDM type II, KAMINI with CPAP occasionally used, chronic cervical/back pain, DJD, diabetic foot wounds x 4 months. Last Myocardial Infarction Date:: 12/11/17 History of Any Multi-Drug Resistant Organisms: MRSA Date of last positivie culture/infection: 03/10/20 MDRO Source:: MRSA TOE Past Surgical History: Adenoidectomy, AICD, Back Surgery, Cholecystectomy, EPS, Heart Catheterization, Pacemaker, Tonsillectomy Additional Past Surgical History / Comment(s): 12/10/17 cardiac cath, previous cardiac cath, 09/02/14 AICD/pacer, EGD/colonoscopy, low back surgery with fusion. Past Anesthesia/Blood Transfusion Reactions: Motion Sickness Additional Past Anesthesia/Blood Transfusion Reaction / Comment(s): Pt states he received blood with back surgery without reaction. Type of Cardiac Device: Permanent Pacemaker, AICD Device Placement Date:: 09-02-14 Past Psychological History: ADD/ADHD, Anxiety Additional Psychological History / Comment(s): Pt lives with his old son. There are cats in the home. Pt is very independent. He states he would like a walker d/t his L foot wound. He drives. Pt states he has ADHD. Pt is disabled. He has a glucometer and nebulizer. The patient worked in the past building [employer] and [employer]. Smoking Status: Current every day smoker Past Alcohol Use History: Occasional Additional Past Alcohol Use History / Comment(s): Pt started smoking in 1984 . Currently smokig 1/2 pack daily. Pt states he was a heavy drinker in the past but quit drinking 30 yrs ago. Past Drug Use History: Marijuana Additional Drug Use History / Comment(s): Occasional marijuana use. - Past Family History Father Additional Family Medical History / Comment(s): Pt has not kept in close contact with his father for many yrs. Father was an alcoholic and pt believes he has from cirrhosis of the liver. Mother History Unknown: Yes Additional Family Medical History / Comment(s): Pt is not in contact with his mother or his father who he has heard had . Medications and Allergies Home Medications Medication Instructions Recorded Confirmed Type Albuterol Inhaler [Ventolin Hfa 2 puff INHALATION RT-QID PRN 07/06/22 05/14/23 History Inhaler] INSULIN LISPRO (humaLOG) [humaLOG] 5 - 10 unit SQ ACHS PRN 07/06/22 05/14/23 History Morphine Sulfate Ir [MSIR] 30 mg PO QID 07/06/22 05/14/23 History Spironolactone [Aldactone] 25 mg PO DAILY #30 tab 07/10/22 05/14/23 Rx DULoxetine HCL [Cymbalta] 60 mg PO BID 11/18/22 05/14/23 History Furosemide [Lasix] 80 mg PO BID 11/18/22 05/14/23 History Sacubitril/Valsartan [Entresto 24 1 tab PO BID 11/18/22 05/14/23 History mg-26 mg Tablet] Cyclobenzaprine [Flexeril] 10 mg PO QID 05/14/23 05/14/23 History Insulin Glargine,Hum.rec.anlog 100 units SQ BID 05/14/23 05/14/23 History [Toujeo Solostar] Zolpidem [Ambien] 10 mg PO HS PRN 05/14/23 05/14/23 History Allergies Allergy/AdvReac Type Severity Reaction Status Date / Time azithromycin Allergy Anaphylaxis Verified 05/14/23 21:28 gemfibrozil [From Lopid] Allergy Rash/Hives Verified 05/14/23 21:28 Physical Exam Vitals: Vital Signs Temp Pulse Resp BP Pulse Ox 05/14/23 16:19 98.3 F 107 H 20 93/63 95 Intake and Output 05/14/23 05/14/23 05/14/23 06:59 14:59 22:59 Other: Weight 102.058 kg Results CBC & Chem 7: 05/14/23 17:06 05/14/23 17:06 Labs: Abnormal Lab Results - Last 24 Hours (Table) 05/14/23 05/14/23 05/14/23 Range/Units 17:06 17:06 17:06 WBC 15.0 H (3.8-10.6) k/uL Neutrophils # 13.1 H (1.3-7.7) k/uL Sodium 134 L (137-145) mmol/L Chloride 94 L (98-107) mmol/L BUN 58 H (9-20) mg/dL Glucose 287 H (74-99) mg/dL Plasma Lactic Acid Shane 2.6 H* (0.7-2.0) mmol/L Alkaline Phosphatase 178 H (38-126) U/L Albumin 3.4 L (3.5-5.0) g/dL
[2023-05-14] MEDS: CYCLOBENZAPRINE 10 MG TAB PO SCH (23:38)
[2023-05-14] MEDS: FUROSEMIDE 40 MG TAB PO SCH (23:39)
[2023-05-14] MEDS: DULoxetine HCL 60 MG CAPSULE.DR PO SCH (23:39)
[2023-05-14] MEDS: SACUBITRIL/VALSARTAN 24 MG-26 MG TABLET PO SCH (23:39)
[2023-05-14] MEDS: INSULIN ASPART (NovoLOG) 100 UNIT/ML VIAL SQ SCH (23:40)
[2023-05-14] MEDS: NICOTINE 14MG/24HR PATCH TRANSDERM SCH (23:40)
[2023-05-14] MEDS: INSULIN DETEMIR (LEVEMIR) 100 UNIT/ML SYR SQ SCH (23:41)
[2023-05-14] MEDS: SODIUM CHLORIDE 0.9% 1,000 ML IV SCH (23:41)
[2023-05-14 23:43] LABS: Glucose,Whole Blood 256 mg/dL (70-110)
[2023-05-15] MEDS: MORPHINE SULFATE IR 15 MG TABLET PO SCH ×5 (00:01→20:31)
[2023-05-15] MEDS ORDERED: PIPERACILLIN-TAZOBACTAM 3.375 GM in SODIUM CHLORIDE 0.9% 100 ML IVPB SCH (06:00)
[2023-05-15 06:48] LABS: Basophils # (A) 0.1 k/uL (0-0.2); Basophils % (A) 1 %; Eosinophils # (A) 0.4 k/uL (0-0.7); Eosinophils % (A) 2 %; HCT 39.4 % (39.0-53.0); HGB 12.4 gm/dL (13.0-17.5); Hypochromasia Slight; Lymphocytes % (A) 13 %; MCHC 31.5 g/dL (31.0-37.0); Mean Platelet Volume 8.6; Monocytes % (A) 7 %; Neutrophils # (A) 11.7 k/uL (1.3-7.7); Neutrophils % (A) 76 %; Platelet Count 268 k/uL (150-450); RBC 4.28 m/uL (4.30-5.90); WBC 15.4 k/uL (3.8-10.6)
[2023-05-15 07:08] LABS: ALT 22 U/L (4-49); AST 23 U/L (17-59); African American GFR (CKD) 58 (>60 ml/min/1.73 sqM); Albumin 3.2 g/dL (3.5-5.0); Alkaline Phosphatase 144 U/L (38-126); Anion Gap 12 mmol/L; Blood Urea Nitrogen 59 mg/dL (9-20); Calcium 8.8 mg/dL (8.4-10.2); Carbon Dioxide 24 mmol/L (22-30); Chloride 101 mmol/L (98-107); Glucose 81 mg/dL (74-99); Non-African American GFR(CKD) 50 (>60 ml/min/1.73 sqM); Phosphorus 4.4 mg/dL (2.5-4.5); Potassium 3.7 mmol/L (3.5-5.1); Sodium 137 mmol/L (137-145); Total Bilirubin 0.9 mg/dL (0.2-1.3); Total Protein 7.4 g/dL (6.3-8.2)
[2023-05-15 07:52] LABS: Glucose,Whole Blood 60 mg/dL (70-110)
[2023-05-15] MEDS: SODIUM CHLORIDE 0.9% 1,000 ML IV SCH ×3 (07:52→20:29)
[2023-05-15] MEDS: INSULIN ASPART (NovoLOG) 100 UNIT/ML VIAL SQ SCH ×4 (07:52→20:36)
[2023-05-15] MEDS: INSULIN DETEMIR (LEVEMIR) 100 UNIT/ML SYR SQ SCH ×2 (08:16→20:37)
--- NOTE | 2023-05-15 08:29 | XR ---
EXAMINATION TYPE: XR chest 2V DATE OF EXAM: 05/14/2023 COMPARISON: 11/19/2022 TECHNIQUE: PA and lateral views submitted. HISTORY: Shortness of breath FINDINGS: The lungs are clear and there is no pneumothorax, pleural effusion, or focal pneumonia. Heart is enl arged but no overt failure. Osseous structures demonstrate hypertrophic and degenerative changes of t he spine. Cardiac device is seen. Bilateral AC joint arthropathy. COPD. IMPRESSION: 1. No acute process. COPD and cardiomegaly.
[2023-05-15] MEDS: FUROSEMIDE 40 MG TAB PO SCH ×2 (09:46→20:28)
[2023-05-15] MEDS: NICOTINE 14MG/24HR PATCH TRANSDERM SCH (09:47)
[2023-05-15] MEDS: SPIRONOLACTONE 25 MG TAB PO SCH (09:47)
[2023-05-15] MEDS: CYCLOBENZAPRINE 10 MG TAB PO SCH ×4 (09:57→20:28)
[2023-05-15] MEDS: DULoxetine HCL 60 MG CAPSULE.DR PO SCH ×2 (09:57→20:28)
[2023-05-15] MEDS: SACUBITRIL/VALSARTAN 24 MG-26 MG TABLET PO SCH ×2 (11:32→20:28)
[2023-05-15] MEDS: ALBUTEROL NEBULIZED 2.5 MG/3 ML INHALATION PRN (11:41)
[2023-05-15] MEDS ORDERED: VANCOMYCIN 1,750 MG in SODIUM CHLORIDE 0.9% 500 ML 500 ML IVPB SCH (12:00)
[2023-05-15 13:02] LABS: Glucose,Whole Blood 110 mg/dL (70-110)
[2023-05-15] MEDS: AMPICILLIN-SULBACTAM 3 GM in SODIUM CHLORIDE 0.9% 100 ML IVPB SCH ×3 (13:47→22:13)
--- NOTE | 2023-05-15 17:07 | P.GSCN ---
History of Present Illness History of present illness: 52-year-old gentleman patient is well known to me from the wound clinic patient was seen 3 weeks ago patient had a clear wound on the his right heel necrotic we did the extensive debridement patient went home then he was follow-up in the wound clinic but he missed her appointments because of transportation patient has been admitted with a wound on his right heel which is foul odor wound with some necrotic tissue present at the heel area patient has a marked swelling of the both lower extremity mellitus noted on the left lower extremity. Today we have sent the deep tissue for culture for right antibiotic for under care of infectious disease I have discussed in detail in the past for amputation he does not want to go for amputation he wanted us to treat the local wound care Medical history history of congestive heart failure, COPD, hypertension, sleep apnea, Patient was seen in his room neck is supple chest first first second sound present few crackles the lung bases graft abdomen is soft nontender Patient has a marked swelling of the both lower extremity there is some slava lulitis on the left lower extremity and patient has a chronic wound right heel Plan is we will arrange for another debridement to the right heel and patient is an antibiotic recurrent 2 pillow elevation we will follow with you prognosis is guarded Past Medical History Past Medical History: Asthma, Coronary Artery Disease (CAD), Chest Pain / Angina, Heart Failure, COPD, Diabetes Mellitus, GERD/Reflux, Hyperlipidemia, Hypertension, Myocardial Infarction ([place]), Pneumonia, Sleep Apnea/CPAP/BIPAP, Supraventricular Tachycardia (SVT) Additional Past Medical History / Comment(s): Ischemic cardiomyopathy, chronic CHF, SVT, IDDM type II, KAMINI with CPAP occasionally used, chronic cervical/back pain, DJD, diabetic foot wounds x 4 months. Last Myocardial Infarction Date:: 12/11/17 History of Any Multi-Drug Resistant Organisms: MRSA Year Discovered:: 03/10/20 MDRO Source:: MRSA TOE Past Surgical History: Adenoidectomy, AICD, Back Surgery, Cholecystectomy, EPS, Heart Catheterization, Pacemaker, Tonsillectomy Additional Past Surgical History / Comment(s): 12/10/17 cardiac cath, previous cardiac cath, 09/02/14 AICD/pacer, EGD/colonoscopy, low back surgery with fusion. Past Anesthesia/Blood Transfusion Reactions: Motion Sickness Additional Past Anesthesia/Blood Transfusion Reaction / Comm: Pt states he received blood with back surgery without reaction. Type of Cardiac Device: Permanent Pacemaker, AICD Device Placement Date:: 09-02-14 Past Psychological History: ADD/ADHD, Anxiety Additional Psychological History / Comment(s): Pt lives with his old son. There are cats in the home. Pt is very independent. He states he would like a walker d/t his L foot wound. He drives. Pt states he has ADHD. Pt is disabled. He has a glucometer and nebulizer. The patient worked in the past building [employer] and [employer]. Smoking Status: Current every day smoker Past Alcohol Use History: Occasional Additional Past Alcohol Use History / Comment(s): Pt started smoking in 1984 . Currently smokig 1/2 pack daily. Pt states he was a heavy drinker in the past but quit drinking 30 yrs ago. Past Drug Use History: Marijuana Additional Drug Use History / Comment(s): Occasional marijuana use. - Past Family History Father Additional Family Medical History / Comment(s): Pt has not kept in close contact with his father for many yrs. Father was an alcoholic and pt believes he has from cirrhosis of the liver. Mother History Unknown: Yes Additional Family Medical History / Comment(s): Pt is not in contact with his mother or his father who he has heard had . Medications and Allergies Home Medications Medication Instructions Recorded Confirmed Type Albuterol Inhaler [Ventolin Hfa 2 puff INHALATION RT-QID PRN 07/06/22 05/14/23 History Inhaler] INSULIN LISPRO (humaLOG) [humaLOG] 5 - 10 unit SQ ACHS PRN 07/06/22 05/14/23 History Morphine Sulfate Ir [MSIR] 30 mg PO QID 07/06/22 05/14/23 History Spironolactone [Aldactone] 25 mg PO DAILY #30 tab 07/10/22 05/14/23 Rx DULoxetine HCL [Cymbalta] 60 mg PO BID 11/18/22 05/14/23 History Furosemide [Lasix] 80 mg PO BID 11/18/22 05/14/23 History Sacubitril/Valsartan [Entresto 24 1 tab PO BID 11/18/22 05/14/23 History mg-26 mg Tablet] Cyclobenzaprine [Flexeril] 10 mg PO QID 05/14/23 05/14/23 History Insulin Glargine,Hum.rec.anlog 100 units SQ BID 05/14/23 05/14/23 History [Tounenoo Solangelica] Zolpidem [Ambien] 10 mg PO HS PRN 05/14/23 05/14/23 History Allergies Allergy/AdvReac Type Severity Reaction Status Date / Time azithromycin Allergy Anaphylaxis Verified 05/14/23 21:28 gemfibrozil [From Lopid] Allergy Rash/Hives Verified 05/14/23 21:28 Surgical - Exam Vital Signs Temp Pulse Resp BP Pulse Ox 98.3 F 107 H 20 93/63 95 05/14/23 16:19 05/14/23 16:19 05/14/23 16:19 05/14/23 16:19 05/14/23 16:19 Results - Labs 05/15/23 05:53 05/15/23 05:53 Abnormal Lab Results - Last 24 Hours (Table) 05/14/23 05/14/23 05/14/23 Range/Units 17:06 17:06 17:06 WBC 15.0 H (3.8-10.6) k/uL RBC (4.30-5.90) m/uL Hgb (13.0-17.5) gm/dL Neutrophils # 13.1 H (1.3-7.7) k/uL Sodium 134 L (137-145) mmol/L Chloride 94 L (98-107) mmol/L BUN 58 H (9-20) mg/dL Creatinine (0.66-1.25) mg/dL Glucose 287 H (74-99) mg/dL POC Glucose (mg/dL) (70-110) mg/dL Plasma Lactic Acid Shane 2.6 H* (0.7-2.0) mmol/L Alkaline Phosphatase 178 H (38-126) U/L Albumin 3.4 L (3.5-5.0) g/dL 05/14/23 05/15/23 05/15/23 Range/Units 23:40 05:53 05:53 WBC 15.4 H (3.8-10.6) k/uL RBC 4.28 L (4.30-5.90) m/uL Hgb 12.4 L (13.0-17.5) gm/dL Neutrophils # 11.7 H (1.3-7.7) k/uL Sodium (137-145) mmol/L Chloride (98-107) mmol/L BUN 59 H (9-20) mg/dL Creatinine 1.55 H (0.66-1.25) mg/dL Glucose (74-99) mg/dL POC Glucose (mg/dL) 256 H (70-110) mg/dL Plasma Lactic Acid Shane (0.7-2.0) mmol/L Alkaline Phosphatase 144 H (38-126) U/L Albumin 3.2 L (3.5-5.0) g/dL 05/15/23 Range/Units 07:50 WBC (3.8-10.6) k/uL RBC (4.30-5.90) m/uL Hgb (13.0-17.5) gm/dL Neutrophils # (1.3-7.7) k/uL Sodium (137-145) mmol/L Chloride (98-107) mmol/L BUN (9-20) mg/dL Creatinine (0.66-1.25) mg/dL Glucose (74-99) mg/dL POC Glucose (mg/dL) 60 L (70-110) mg/dL Plasma Lactic Acid Shane (0.7-2.0) mmol/L Alkaline Phosphatase (38-126) U/L Albumin (3.5-5.0) g/dL Diabetes panel 05/14/23 05/15/23 Range/Units 17:06 05:53 Sodium 134 L 137 (137-145) mmol/L Potassium 4.2 3.7 (3.5-5.1) mmol/L Chloride 94 L 101 (98-107) mmol/L Carbon Dioxide 26 24 (22-30) mmol/L BUN 58 H 59 H (9-20) mg/dL Creatinine 1.23 1.55 H (0.66-1.25) mg/dL Glucose 287 H 81 (74-99) mg/dL Calcium 9.2 8.8 (8.4-10.2) mg/dL AST 28 23 (17-59) U/L ALT 25 22 (4-49) U/L Alkaline Phosphatase 178 H 144 H (38-126) U/L Total Protein 7.7 7.4 (6.3-8.2) g/dL Albumin 3.4 L 3.2 L (3.5-5.0) g/dL Calcium panel 05/14/23 05/15/23 Range/Units 17:06 05:53 Calcium 9.2 8.8 (8.4-10.2) mg/dL Phosphorus 3.9 4.4 (2.5-4.5) mg/dL Albumin 3.4 L 3.2 L (3.5-5.0) g/dL Pituitary panel 05/14/23 05/15/23 Range/Units 17:06 05:53 Sodium 134 L 137 (137-145) mmol/L Potassium 4.2 3.7 (3.5-5.1) mmol/L Chloride 94 L 101 (98-107) mmol/L Carbon Dioxide 26 24 (22-30) mmol/L BUN 58 H 59 H (9-20) mg/dL Creatinine 1.23 1.55 H (0.66-1.25) mg/dL Glucose 287 H 81 (74-99) mg/dL Calcium 9.2 8.8 (8.4-10.2) mg/dL Adrenal panel 05/14/23 05/15/23 Range/Units 17:06 05:53 Sodium 134 L 137 (137-145) mmol/L Potassium 4.2 3.7 (3.5-5.1) mmol/L Chloride 94 L 101 (98-107) mmol/L Carbon Dioxide 26 24 (22-30) mmol/L BUN 58 H 59 H (9-20) mg/dL Creatinine 1.23 1.55 H (0.66-1.25) mg/dL Glucose 287 H 81 (74-99) mg/dL Calcium 9.2 8.8 (8.4-10.2) mg/dL Total Bilirubin 1.2 0.9 (0.2-1.3) mg/dL AST 28 23 (17-59) U/L ALT 25 22 (4-49) U/L Alkaline Phosphatase 178 H 144 H (38-126) U/L Total Protein 7.7 7.4 (6.3-8.2) g/dL Albumin 3.4 L 3.2 L (3.5-5.0) g/dL
[2023-05-15 17:17] LABS: Glucose,Whole Blood 68 mg/dL (70-110)
[2023-05-15 20:37] LABS: Glucose,Whole Blood 81 mg/dL (70-110)
[2023-05-15] MEDS ORDERED: FUROSEMIDE 10 MG/ML 4 ML VIAL IV STA (21:45)
[2023-05-15] MEDS ORDERED: FUROSEMIDE 10 MG/ML 4 ML VIAL IV SCH (21:57)
--- NOTE | 2023-05-15 22:03 | P.PN ---
Progress Note - Text Progress Note Date: 05/15/23 Chief Complaint: Right foot wound This is a 52-year-old patient, follows with Dr. Rodríguez. Chronic stable medical condition include CHF EF less than 20%, COPD, diabetes mellitus type 2, hypertension, hyperlipidemia, obstructive sleep apnea, anxiety, AICD, lower extremity venous insufficiency. Patient had lower extremity wounds and has been followed by ID and Dr. Lugo from vascular. Patient has not been able to make a wound care center regularly because of transportation issues. Now presents with worsening wound on the right foot. Has had previous debridement of same. It is draining. Somewhat foul-smelling.. Patient had some chills. May 15: Patient had right foot wound debridement with Dr. Lugo. Currently in dressing. Patient received IV fluids from the ER. Stop the same. IV Lasix. Patient is on IV Unasyn and IV vancomycin per ID. Significant edema. Active Medications Acetaminophen (Acetaminophen Tab 325 Mg Tab) 650 mg PO Q6HR PRN PRN Reason: Mild Pain or Fever > 100.5 Albuterol Sulfate (Albuterol Nebulized 2.5 Mg/3 Ml) 2.5 mg INHALATION RT-QID PRN PRN Reason: Shortness Of Breath Last Admin: 05/15/23 11:41 Dose: 2.5 mg Alprazolam (Alprazolam 0.25 Mg Tab) 0.25 mg PO Q6HR PRN PRN Reason: Anxiety Calcium Carbonate/Glycine (Calcium Carbonate 500 Mg Chewable) 1,000 mg PO Q4HR PRN PRN Reason: Dyspepsia Cyclobenzaprine HCl (Cyclobenzaprine 10 Mg Tab) 10 mg PO QID [facility] Last Admin: 05/15/23 20:28 Dose: 10 mg Dextrose/Water (Dextrose 50% Syringe 50 Ml) 25 ml IVP PER PROTOCOL PRN; Protocol PRN Reason: Hypoglycemia Dextrose/Water (Dextrose 50% Syringe 50 Ml) 50 ml IVP PER PROTOCOL PRN; Gregory col PRN Reason: Hypoglycemia Duloxetine HCl (Duloxetine Hcl 60 Mg Capsule.Dr) 60 mg PO BID [facility] Last Admin: 05/15/23 20:28 Dose: 60 mg Furosemide (Furosemide 10 Mg/Ml 4 Ml Vial) 40 mg IV Q8HR LAN Vancomycin HCl 1,750 mg/ (Sodium Chloride) 500 mls @ 167 mls/hr IVPB Q12H [facility] Last Admin: 10/18/23 11:32 Dose: 167 mls/hr Ampicillin Sodium/Sulbactam (Sodium 3 gm/ Sodium Chloride) 100 mls @ 200 mls/hr IVPB Q6HR [facility]; Protocol Last Admin: 05/15/23 18:18 Dose: 200 mls/hr Insulin Aspart (Insulin Aspart (Novolog) 100 Unit/Ml Vial) 0 unit SQ ACHS [facility]; Protocol Last Admin: 05/15/23 20:36 Dose: Not Given Insulin Detemir (Insulin Detemir (Levemir) 100 Unit/Ml Syr) 80 unit SQ BID@0700,2100 [facility] Last Admin: 05/15/23 20:37 Dose: Not Given Lactulose (Lactulose 20 Gm/30 Ml Cup) 20 gm PO DAILY PRN PRN Reason: Constipation Melatonin (Melatonin 3 Mg Tablet) 3 mg PO HS PRN PRN Reason: Insomnia Miscellaneous Information (Vancomycin Trough Due 1 Each Misc) 0 each MISCELLANE DIRECTED ONE Stop: 05/16/23 11:01 Morphine Sulfate (Morphine Sulfate 4 Mg/Ml Syringe) 4 mg IV Q4HR PRN PRN Reason: Severe Pain (Scale 7 to 10) Morphine Sulfate (Morphine Sulfate Ir 15 Mg Tablet) 30 mg PO QID [facility] Last Admin: 05/15/23 20:31 Dose: Not Given Naloxone HCl (Naloxone 0.4 Mg/Ml 1 Ml Vial) 0.2 mg IV Q2M PRN PRN Reason: Opioid Reversal Nicotine (Nicotine 14mg/24hr Patch) 1 patch TRANSDERM DAILY [facility] Last Admin: 05/15/23 09:47 Dose: 1 patch Ondansetron HCl (Ondansetron 4 Mg/2 Ml Vial) 4 mg IVP Q8HR PRN PRN Reason: Nausea And Vomiting Last Admin: 05/14/23 22:17 Dose: 4 mg Sacubitril/Valsartan (Sacubitril/Valsartan 24 Mg-26 Mg Tablet) 1 each PO BID [facility] Last Admin: 05/15/23 20:28 Dose: 1 each Silver Sulfadiazine (Silver Sulfadiazine 1% Cream 25 Gm Tube) 1 applic TOPICAL BID [facility]; Protocol Last Admin: 05/15/23 20:28 Dose: 1 applic Spironolactone (Spironolactone 25 Mg Tab) 25 mg PO DAILY [facility] Last Admin: 05/15/23 09:47 Dose: 25 mg Zolpidem Tartrate (Zolpidem 5 Mg Tab) 10 mg PO HS PRN PRN Reason: Insomnia Social history: Lives with his 20-year-old son. Disabled. 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 Smoking 2 packs a day for most of his life now down to half a pack a day. Stop drinking heavy alcohol about 20 years ago. Has done marijuana. Physical examination: VITAL SIGNS: 97.9, 99, 16, 84/63, 97% room air GENERAL: Reclining in bed EYES: Pupils equal. Conjunctiva normal. HEENT: External appearance of nose and ears normal, oral cavity grossly normal. NECK: JVD unable to assess; masses not palpable. HEART: First and second heart sounds are normal; significant edema present. LUNGS: Respiratory rate normal; diminished breath sounds ABDOMEN: Soft, nontender, liver spleen not palpable, no masses palpable. PSYCH: Alert and oriented x3; mood and affect anxiousl. MUSCULOSKELETAL:No Clubbing/cyanosis;muscles-grossly intact DERMATOLOGICAL: Right foot wound. More details and nursing notes. INVESTIGATIONS, reviewed in the clinical context: May 15: White count 15.4 hemoglobin 12.4 potassium 3.7 BUN 59 creatinine 1.55 05/14/2023: White count 15 hemoglobin 13 platelets 254 sodium 134 potassium 4.2 BUN 58 creatinine 1.23 lactic acid 2.6 Assessment and plan: -Acute right lower leg cellulitis, infected right heel diabetic ulcer with prior history of debridement. Has not been able to follow the wound care center because of transport. Wound swab for Gram stain and culture. IV Unasyn Consultation to ID and Dr. Lugo from vascular. -Sepsis from right leg wound. IV Zosyn. Hold off IV fluids because of CHF. -Acute on chronic congestive heart failure nonischemic cardiomyopathy systolic dysfunction EF less than 20%: IV Lasix 60 mg every 12.. Aldactone 25 mg . Entresto one tablet by mouth twice a day AICD. - COPD current smoker Ventolin. -Diabetes mellitus type 2 chronically on insulin, uncontrolled with hyperglycemia and hypoglycemia. Lantus 30 units subcu daily . Diabetic diet. Accu-Cheks and sliding scale -Hyperlipidemia -Essential hypertension Entresto -Obstructive sleep apnea sometimes uses CPAP machine -Diabetic peripheral neuropathy -Anxiety Ativan when necessary -DJD Tylenol when necessary -Chronic nicotine dependence patient cigarette smoker Nicotine patch 14 -AICD -Lower extremity chronic venous insufficiency IV Lasix. Cutback nose of Lantus. Wound care to continue. Stop vancomycin because of renal function.
--- NOTE | 2023-05-15 22:39 | P.CONS ---
History of Present Illness - Reason for Consult Consult date: 05/15/23 Right diabetic foot and osteomyelitis Requesting physician: Dangelo Harrison - Chief Complaint Worsening wound to the right heel x weeks - History of Present Illness patient is a 52-year-old male with a past medical history significant for diabetes mellitus history of right heel diabetic foot infection with a previous admission to this facility back in November 2022 patient did have extensive debridement of the wound culture were positive for Proteus patient was advised a 6-week course of IV Rocephin and Flagyl with the patient has completed and the patient was following up with [facility] wound care center patient mention over the last few days to weeks he has worsening of his wound with more foul-smelling drainage patient did have diabetic neuropathy denies significant pain to the right heel wound area with worsening of his wound the patient was advised by the home care nurse to go to the hospital on arrival to the ER the patient was afebrile and no fever; subsequently patient did have white count of 15.4 with a left shift BUN and creatinine has been elevated liver exams are normal blood cultures obtained which are currently pending patient did have a chest x-ray no acute process patient was started on vancomycin and Zosyn infectious disease was consulted for further management of antibiotic therapy Review of Systems Positive point and negatives has been mentioned in the HPI, complete review of systems was performed and all other systems are negative Past Medical History Past Medical History: Asthma, Coronary Artery Disease (CAD), Chest Pain / Angina, Heart Failure, COPD, Diabetes Mellitus, GERD/Reflux, Hyperlipidemia, Hypertension, Myocardial Infarction ([place]), Pneumonia, Sleep Apnea/CPAP/BIPAP, Supraventricular Tachycardia (SVT) Additional Past Medical History / Comment(s): Ischemic cardiomyopathy, chronic CHF, SVT, IDDM type II, KAMINI with CPAP occasionally used, chronic cervical/back pain, DJD, diabetic foot wounds x 4 months. Last Myocardial Infarction Date:: 12/11/17 History of Any Multi-Drug Resistant Organisms: MRSA Year Discovered:: 03/10/20 MDRO Source:: MRSA TOE Past Surgical History: Adenoidectomy, AICD, Back Surgery, Cholecystectomy, EPS, Heart Catheterization, Pacemaker, Tonsillectomy Additional Past Surgical History / Comment(s): 12/10/17 cardiac cath, previous cardiac cath, 09/02/14 AICD/pacer, EGD/colonoscopy, low back surgery with fusion. Past Anesthesia/Blood Transfusion Reactions: Motion Sickness Additional Past Anesthesia/Blood Transfusion Reaction / Comm: Pt states he received blood with back surgery without reaction. Type of Cardiac Device: Permanent Pacemaker, AICD Device Placement Date:: 09-02-14 Past Psychological History: ADD/ADHD, Anxiety Additional Psychological History / Comment(s): Pt lives with his old son. There are cats in the home. Pt is very independent. He states he would like a walker d/t his L foot wound. He drives. Pt states he has ADHD. Pt is disabled. He has a glucometer and nebulizer. The patient worked in the past building [employer] and [employer]. Smoking Status: Current every day smoker Past Alcohol Use History: Occasional Additional Past Alcohol Use History / Comment(s): Pt started smoking in 1984 . Currently smokig 1/2 pack daily. Pt states he was a heavy drinker in the past but quit drinking 30 yrs ago. Past Drug Use History: Marijuana Additional Drug Use History / Comment(s): Occasional marijuana use. - Past Family History Father Additional Family Medical History / Comment(s): Pt has not kept in close contact with his father for many yrs. Father was an alcoholic and pt believes he has from cirrhosis of the liver. Mother History Unknown: Yes Additional Family Medical History / Comment(s): Pt is not in contact with his mother or his father who he has heard had . Medications and Allergies Home Medications Medication Instructions Recorded Confirmed Type Albuterol Inhaler [Ventolin Hfa 2 puff INHALATION RT-QID PRN 07/06/22 05/14/23 History Inhaler] INSULIN LISPRO (humaLOG) [humaLOG] 5 - 10 unit SQ ACHS PRN 07/06/22 05/14/23 History Morphine Sulfate Ir [MSIR] 30 mg PO QID 07/06/22 05/14/23 History Spironolactone [Aldactone] 25 mg PO DAILY #30 tab 07/10/22 05/14/23 Rx DULoxetine HCL [Cymbalta] 60 mg PO BID 11/18/22 05/14/23 History Furosemide [Lasix] 80 mg PO BID 11/18/22 05/14/23 History Sacubitril/Valsartan [Entresto 24 1 tab PO BID 11/18/22 05/14/23 History mg-26 mg Tablet] Cyclobenzaprine [Flexeril] 10 mg PO QID 05/14/23 05/14/23 History Insulin Glargine,Hum.rec.anlog 100 units SQ BID 05/14/23 05/14/23 History [Tounenoo Solostar] Zolpidem [Ambien] 10 mg PO HS PRN 05/14/23 05/14/23 History Allergies Allergy/AdvReac Type Severity Reaction Status Date / Time azithromycin Allergy Anaphylaxis Verified 05/14/23 21:28 gemfibrozil [From Lopid] Allergy Rash/Hives Verified 05/14/23 21:28 Physical Exam Vitals: Vital Signs Temp Pulse Pulse Resp BP BP Pulse Ox 05/15/23 11:51 89 05/15/23 11:41 102 H 05/15/23 08:27 109 H 102/77 93 L 05/15/23 07:53 100 20 102/77 95 05/15/23 05:20 86 18 87/52 93 L 05/15/23 04:18 93 18 81/58 93 L 05/14/23 23:45 100 20 90/62 97 05/14/23 22:19 94 20 91/60 95 05/14/23 16:19 98.3 F 107 H 20 93/63 95 Intake and Output 05/14/23 05/15/23 05/15/23 22:59 06:59 14:59 Other: Weight 102.058 kg GENERAL DESCRIPTION: Middle-aged male lying in bed, no distress. No tachypnea or accessory muscle of respiration use. HEENT: Shows Pallor , no scleral icterus. Oral mucous membrane is dry. No pharyngeal erythema or thrush NECK: Trachea central, no thyromegaly. LUNGS: Unlabored breathing. Clear to auscultation anteriorly. No wheeze or crackle. HEART: S1, S2, regular rate and rhythm. ABDOMEN: Soft, no tenderness , guarding or rigidity, no organomegaly EXTREMITIES: Right heel with extensive wound with necrotic tissue and foul smelling drainage SKIN: No rash, no masses palpable. NEUROLOGICAL: The patient is awake, alert, oriented x3, mood and affect normal. Results CBC & Chem 7: 05/15/23 05:53 05/15/23 05:53 Labs: Abnormal Lab Results - Last 24 Hours (Table) 05/14/23 05/14/23 05/14/23 Range/Units 17:06 17:06 17:06 WBC 15.0 H (3.8-10.6) k/uL RBC (4.30-5.90) m/uL Hgb (13.0-17.5) gm/dL Neutrophils # 13.1 H (1.3-7.7) k/uL Sodium 134 L (137-145) mmol/L Chloride 94 L (98-107) mmol/L BUN 58 H (9-20) mg/dL Creatinine (0.66-1.25) mg/dL Glucose 287 H (74-99) mg/dL POC Glucose (mg/dL) (70-110) mg/dL Plasma Lactic Acid Shane 2.6 H* (0.7-2.0) mmol/L Alkaline Phosphatase 178 H (38-126) U/L Albumin 3.4 L (3.5-5.0) g/dL 05/14/23 05/15/23 05/15/23 Range/Units 23:40 05:53 05:53 WBC 15.4 H (3.8-10.6) k/uL RBC 4.28 L (4.30-5.90) m/uL Hgb 12.4 L (13.0-17.5) gm/dL Neutrophils # 11.7 H (1.3-7.7) k/uL Sodium (137-145) mmol/L Chloride (98-107) mmol/L BUN 59 H (9-20) mg/dL Creatinine 1.55 H (0.66-1.25) mg/dL Glucose (74-99) mg/dL POC Glucose (mg/dL) 256 H (70-110) mg/dL Plasma Lactic Acid Shane (0.7-2.0) mmol/L Alkaline Phosphatase 144 H (38-126) U/L Albumin 3.2 L (3.5-5.0) g/dL 05/15/23 Range/Units 07:50 WBC (3.8-10.6) k/uL RBC (4.30-5.90) m/uL Hgb (13.0-17.5) gm/dL Neutrophils # (1.3-7.7) k/uL Sodium (137-145) mmol/L Chloride (98-107) mmol/L BUN (9-20) mg/dL Creatinine (0.66-1.25) mg/dL Glucose (74-99) mg/dL POC Glucose (mg/dL) 60 L (70-110) mg/dL Plasma Lactic Acid Shane (0.7-2.0) mmol/L Alkaline Phosphatase (38-126) U/L Albumin (3.5-5.0) g/dL Assessment and Plan (1) Foot osteomyelitis, right Current Visit: Yes Status: Acute Code(s): M86.9 - OSTEOMYELITIS, UNSPECIFIED SNOMED Code(s): 1334092327010771 (2) Type 2 diabetes mellitus with right diabetic foot ulcer Current Visit: Yes Status: Acute Code(s): E11.621 - TYPE 2 DIABETES MELLITUS WITH FOOT ULCER; L97.519 - NON-PRS CHRONIC ULCER OTH PRT RIGHT FOOT W UNSP SEVERITY SNOMED Code(s): 938725800 (3) Wound infection Current Visit: Yes Status: Acute Code(s): T14.8XXA - OTHER INJURY OF UNSPECIFIED BODY REGION, INITIAL ENCOUNTER; L08.9 - LOCAL INFECTION OF THE SKIN AND SUBCUTANEOUS TISSUE, UNSP SNOMED Code(s): 71823449 Plan: 1patient with extensive right diabetic foot infection with evidence of necrosis and foul-smelling drainage send significant deep wound concerning for osteomyelitis and will need to cover for the polymicrobial stacy usually asso ciated with the diabetic foot infection 2-mildly elevated creatinine high risk of nephrotoxicity 3-await vascular surgery evaluation for possible debridement and deep culture 4-continue with the vancomycin watching his kidney function closely however discontinue Zosyn and start the patient on Unasyn We will follow on clinical condition and cultures to further adjust medication if needed Thank you for this consultation we will follow the patient along with you Dictation was produced using [employer] dictation software. please excuse any grammatical, word or spelling errors.
[2023-05-16] MEDS: AMPICILLIN-SULBACTAM 3 GM in SODIUM CHLORIDE 0.9% 100 ML IVPB SCH ×3 (05:45→18:43)
[2023-05-16] MEDS: FUROSEMIDE 10 MG/ML 10 ML VIAL IV SCH ×2 (05:45→20:01)
[2023-05-16 06:18] LABS: Glucose,Whole Blood 69 mg/dL (70-110)
[2023-05-16] MEDS: INSULIN ASPART (NovoLOG) 100 UNIT/ML VIAL SQ SCH ×4 (06:19→21:53)
[2023-05-16] MEDS: INSULIN DETEMIR (LEVEMIR) 100 UNIT/ML SYR SQ SCH (06:20)
[2023-05-16 07:53] LABS: Glucose,Whole Blood 94 mg/dL (70-110)
[2023-05-16 08:47] LABS: African American GFR (CKD) 45 (>60 ml/min/1.73 sqM); Non-African American GFR(CKD) 39 (>60 ml/min/1.73 sqM)
[2023-05-16] MEDS: MORPHINE SULFATE IR 15 MG TABLET PO SCH ×4 (10:54→22:09)
[2023-05-16] MEDS: SPIRONOLACTONE 25 MG TAB PO SCH (10:56)
[2023-05-16] MEDS ORDERED: VANCOMYCIN TROUGH DUE 1 EACH MISC MISCELLANE ONE (11:00)
[2023-05-16] MEDS: DULoxetine HCL 60 MG CAPSULE.DR PO SCH ×2 (11:02→21:53)
[2023-05-16] MEDS: CYCLOBENZAPRINE 10 MG TAB PO SCH ×4 (11:02→21:52)
[2023-05-16] MEDS: SACUBITRIL/VALSARTAN 24 MG-26 MG TABLET PO SCH (11:02)
[2023-05-16] MEDS: NICOTINE 14MG/24HR PATCH TRANSDERM SCH (11:02)
[2023-05-16 12:22] LABS: Glucose,Whole Blood 118 mg/dL (70-110)
--- NOTE | 2023-05-16 12:30 | P.NPCON ---
History of Present Illness - Reason for Consult acute renal failure - History of Present Illness Reason for consultation: Acute kidney injury History of present illness: The patient is a 52-year-old male seen in renal consultation for acute kidney injury. Patient baseline creatinine from November 2022 was 1.0. Patient's creatinine this admission was 1.23 and is up to 1.94 today. Patient came to the hospital on 05/14/2023 due to right foot ulcer. Patient follows the wound clinic and states that the wound was getting more painful. He's being followed by infectious disease as well as vascular surgery. He underwent debridement on 05/15/2023. Patient's blood pressure is low in the systolic 80s to 90s. Patient was receiving IV fluids but was started on IV Lasix yesterday. He received 80 mg of IV Lasix yesterday and another dose of 40 mg. Currently he is maintained on 60 mg of Lasix IV twice daily. He is also on Aldactone and entresto. He denies use of nonsteroidals. He does have history of diabetes. Denies family history of renal disease. Denies history of coronary artery disease. Oral intake has been good. He denies vomiting or diarrhea. Vital signs are stable. Blood pressure on the lower side. General: No acute distress. HEENT: Head exam is unremarkable. LUNGS: No audible rhonchi or wheezes. HEART: Rate and Rhythm are regular. ABDOMEN: Nontender. EXTREMITITES: Right foot wrapped. 2+ edema. Past Medical History Past Medical History: Asthma, Coronary Artery Disease (CAD), Chest Pain / Angina, Heart Failure, COPD, Diabetes Mellitus, GERD/Reflux, Hyperlipidemia, Hypertension, Myocardial Infarction ([place]), Pneumonia, Sleep Apnea/CPAP/BIPAP, Supraventricular Tachycardia (SVT) Additional Past Medical History / Comment(s): Ischemic cardiomyopathy, chronic CHF, SVT, IDDM type II, KAMINI with CPAP occasionally used, chronic cervical/back pain, DJD, diabetic foot wounds x 4 months. Last Myocardial Infarction Date:: 12/11/17 History of Any Multi-Drug Resistant Organisms: MRSA Date of last positivie culture/infection: 03/10/20 MDRO Source:: MRSA TOE Past Surgical History: Adenoidectomy, AICD, Back Surgery, Cholecystectomy, EPS, Heart Catheterization, Pacemaker, Tonsillectomy Additional Past Surgical History / Comment(s): 12/10/17 cardiac cath, previous cardiac cath, 09/02/14 AICD/pacer, EGD/colonoscopy, low back surgery with fusion. Past Anesthesia/Blood Transfusion Reactions: Motion Sickness Additional Past Anesthesia/Blood Transfusion Reaction / Comment(s): Pt states he received blood with back surgery without reaction. Type of Cardiac Device: Permanent Pacemaker, AICD Device Placement Date:: 09-02-14 Past Psychological History: ADD/ADHD, Anxiety Additional Psychological History / Comment(s): Pt lives with his old son. There are cats in the home. Pt is very independent. He states he would like a walker d/t his L foot wound. He drives. Pt states he has ADHD. Pt is disabled. He has a glucometer and nebulizer. The patient worked in the past building [employer] and [employer]. Smoking Status: Current every day smoker Past Alcohol Use History: Occasional Additional Past Alcohol Use History / Comment(s): Pt started smoking in 1984 . Currently smokig 1/2 pack daily. Pt states he was a heavy drinker in the past but quit drinking 30 yrs ago. Past Drug Use History: Marijuana Additional Drug Use History / Comment(s): Occasional marijuana use. - Past Family History Father Additional Family Medical History / Comment(s): Pt has not kept in close contact with his father for many yrs. Father was an alcoholic and pt believes he has from cirrhosis of the liver. Mother History Unknown: Yes Additional Family Medical History / Comment(s): Pt is not in contact with his mother or his father who he has heard had . Medications and Allergies Home Medications Medication Instructions Recorded Confirmed Type Albuterol Inhaler [Ventolin Hfa 2 puff INHALATION RT-QID PRN 07/06/22 05/14/23 History Inhaler] INSULIN LISPRO (humaLOG) [humaLOG] 5 - 10 unit SQ ACHS PRN 07/06/22 05/14/23 History Morphine Sulfate Ir [MSIR] 30 mg PO QID 07/06/22 05/14/23 History Spironolactone [Aldactone] 25 mg PO DAILY #30 tab 07/10/22 05/14/23 Rx DULoxetine HCL [Cymbalta] 60 mg PO BID 11/18/22 05/14/23 History Furosemide [Lasix] 80 mg PO BID 11/18/22 05/14/23 History Sacubitril/Valsartan [Entresto 24 1 tab PO BID 11/18/22 05/14/23 History mg-26 mg Tablet] Cyclobenzaprine [Flexeril] 10 mg PO QID 05/14/23 05/14/23 History Insulin Glargine,Hum.rec.anlog 100 units SQ BID 05/14/23 05/14/23 History [Toujeo Solostar] Zolpidem [Ambien] 10 mg PO HS PRN 05/14/23 05/14/23 History Allergies Allergy/AdvReac Type Severity Reaction Status Date / Time azithromycin Allergy Anaphylaxis Verified 05/14/23 21:28 gemfibrozil [From Lopid] Allergy Rash/Hives Verified 05/14/23 21:28 Physical Exam Vitals: Vital Signs Temp Pulse Resp BP Pulse Ox 05/16/23 07:00 98.3 F 100 14 93/68 96 05/16/23 03:04 98.1 F 101 H 17 91/70 93 L 05/15/23 20:26 97.9 F 99 84/63 97 05/15/23 14:42 98.3 F 98 12 83/54 97 Intake and Output 05/15/23 05/16/23 05/16/23 22:59 06:59 14:59 Intake Total 961 Balance 961 Intake: Oral 961 Other: # Voids 2 Results - Lab Results Most recent lab results Calcium 8.8 mg/dL (8.4-10.2) 05/15/23 05:53 Phosphorus 4.4 mg/dL (2.5-4.5) 05/15/23 05:53 Magnesium 2.0 mg/dL (1.6-2.3) 05/15/23 05:53 05/15/23 05:53 05/16/23 07:39 Assessment and Plan Plan: Assessment: 1. Acute kidney injury secondary to ATN secondary to hypotension. Creatinine 1.23 on admission and is up to 1.94 today. 2. Acute on chronic systolic CHF with ejection fraction of less than 20% with moderate to severe mitral regurgitation, moderate tricuspid regurgitation and severe pulmonary hypertension noted on echocardiogram done in June 2022. 3. Volume overload. 4. Right foot wound being followed by vascular surgery and infectious disease. Status post debridement. On antibiotics. 5. Diabetes mellitus. Plan: Maintain IV Lasix. Check bladder scan to rule out urinary retention. Check renal ultrasound. Check urinalysis. Add midodrine. Hold for systolic blood pressure greater than 110. Hold Entresto for now. Avoid nephrotoxins. Continue to monitor renal function and urine output. Thank you for the consultation. I will continue to follow the patient with you during his hospital stay.
[2023-05-16] MEDS: MIDODRINE 5 MG TAB PO SCH ×2 (13:07→18:11)
[2023-05-16 15:14] LABS: Appearance,Urine Clear (Clear); Bilirubin,Urine Negative (Negative); Blood,Urine Negative (Negative); Color,Urine Yellow; Glucose,Urine (UA) Negative (Negative); Ketones,Urine Negative (Negative); Leukocyte Esterase,Urine Negative (Negative); Nitrite,Urine Negative (Negative); Protein,Urine Negative (Negative); Specific Gravity,Urine 1.012 (1.001-1.035)
[2023-05-16] MEDS ORDERED: LACTATED RINGERS 1,000 ML IV ONE (16:21)
[2023-05-16 16:28] LABS: Glucose,Whole Blood 133 mg/dL (70-110)
[2023-05-16] MEDS ORDERED: fentaNYL (PF) 50 MCG/ML 2 ML AMP ONE (16:33)
[2023-05-16] MEDS ORDERED: MIDAZOLAM 2 MG/2 ML VIAL ONE (16:33)
[2023-05-16] MEDS ORDERED: KETAMINE HCL IN 0.9 % NACL 50 MG/5 ML SYRINGE ONE (16:33)
[2023-05-16] MEDS ORDERED: PROPOFOL 10 MG/ML 20 ML VIAL IV ONE (16:33)
[2023-05-16] MEDS ORDERED: ONDANSETRON 4 MG/2 ML VIAL IVP ONE (16:37)
[2023-05-16] MEDS ORDERED: LIDOCAINE 1% INJ 10MG/ML (20 ML MDV) SQ ONE ×2 (16:51)
[2023-05-16 18:14] LABS: Glucose,Whole Blood 97 mg/dL (70-110)
--- NOTE | 2023-05-16 20:13 | P.PN ---
Progress Note - Text Progress Note Date: 05/16/23 Chief Complaint: Right foot wound This is a 52-year-old patient, follows with Dr. Rodríguez. Chronic stable medical condition include CHF EF less than 20%, COPD, diabetes mellitus type 2, hypertension, hyperlipidemia, obstructive sleep apnea, anxiety, AICD, lower extremity venous insufficiency. Patient had lower extremity wounds and has been followed by ID and Dr. Lugo from vascular. Patient has not been able to make a wound care center regularly because of transportation issues. Now presents with worsening wound on the right foot. Has had previous debridement of same. It is draining. Somewhat foul-smelling.. Patient had some chills. May 15: Patient had right foot wound debridement with Dr. Lugo. Currently in dressing. Patient received IV fluids from the ER. Stop the same. IV Lasix. Patient is on IV Unasyn and IV vancomycin per ID. Significant edema. May 16: IV Lasix 60 mg every 12. Unclear if he is making much urine. IV vancomycin was discontinued yesterday because of renal function. Some decrease in edema. Oral intake good. IV Unasyn. Being followed by ID. Active Medications Acetaminophen (Acetaminophen Tab 325 Mg Tab) 650 mg PO Q6HR PRN PRN Reason: Mild Pain or Fever > 100.5 Albuterol Sulfate (Albuterol Nebulized 2.5 Mg/3 Ml) 2.5 mg INHALATION RT-QID PRN PRN Reason: Shortness Of Breath Last Admin: 05/15/23 11:41 Dose: 2.5 mg Alprazolam (Alprazolam 0.25 Mg Tab) 0.25 mg PO Q6HR PRN PRN Reason: Anxiety Calcium Carbonate/Glycine (Calcium Carbonate 500 Mg Chewable) 1,000 mg PO Q4HR PRN PRN Reason: Dyspepsia Cyclobenzaprine HCl (Cyclobenzaprine 10 Mg Tab) 10 mg PO QID [facility] Last Admin: 05/16/23 18:14 Dose: Not Given Dextrose/Water (Dextrose 50% Syringe 50 Ml) 25 ml IVP PER PROTOCOL PRN; Protocol PRN Reason: Hypoglycemia Dextrose/Water (Dextrose 50% Syringe 50 Ml) 50 ml IVP PER PROTOCOL PRN; Protocol PRN Reason: Hypoglycemia Duloxetine HCl (Duloxetine Hcl 60 Mg Elvis.) 60 mg PO BID [facility] Last Admin: 05/16/23 11:02 Dose: 60 mg Furosemide (Furosemide 10 Mg/Ml 10 Ml Vial) 60 mg IV Q12H [facility] Last Admin: 05/16/23 20:01 Dose: 60 mg Ampicillin Sodium/Sulbactam (Sodium 3 gm/ Sodium Chloride) 100 mls @ 200 mls/hr IVPB Q6HR [facility]; Protocol Last Admin: 05/16/23 18:43 Dose: 200 mls/hr Insulin Aspart (Insulin Aspart (Novolog) 100 Unit/Ml Vial) 0 unit SQ ACHS [facility]; Protocol Last Admin: 05/16/23 18:15 Dose: Not Given Insulin Detemir (Insulin Detemir (Levemir) 100 Unit/Ml Syr) 30 unit SQ DAILY@0700 [facility] Last Admin: 05/16/23 06:20 Dose: Not Given Lactulose (Lactulose 20 Gm/30 Ml Cup) 20 gm PO DAILY PRN PRN Reason: Constipation Melatonin (Melatonin 3 Mg Tablet) 3 mg PO HS PRN PRN Reason: Insomnia Midodrine (Midodrine 5 Mg Tab) 10 mg PO AC-TID [facility] Last Admin: 05/16/23 18:11 Dose: 10 mg Morphine Sulfate (Morphine Sulfate 4 Mg/Ml Syringe) 4 mg IV Q4HR PRN PRN Reason: Severe Pain (Scale 7 to 10) Morphine Sulfate (Morphine Sulfate Ir 15 Mg Tablet) 30 mg PO QID [facility] Last Admin: 05/16/23 18:14 Dose: Not Given Naloxone HCl (Naloxone 0.4 Mg/Ml 1 Ml Vial) 0.2 mg IV Q2M PRN PRN Reason: Opioid Reversal Nicotine (Nicotine 14mg/24hr Patch) 1 patch TRANSDERM DAILY [facility] Last Admin: 05/16/23 11:02 Dose: 1 patch Ondansetron HCl (Ondansetron 4 Mg/2 Ml Vial) 4 mg IVP Q8HR PRN PRN Reason: Nausea And Vomiting Last Admin: 05/14/23 22:17 Dose: 4 mg Silver Sulfadiazine (Silver Sulfadiazine 1% Cream 25 Gm Tube) 1 applic TOPICAL BID [facility]; Protocol Last Admin: 05/16/23 11:03 Dose: 1 applic Spironolactone (Spironolactone 25 Mg Tab) 25 mg PO DAILY [facility] Last Admin: 05/16/23 10:56 Dose: Not Given Zolpidem Tartrate (Zolpidem 5 Mg Tab) 10 mg PO HS PRN PRN Reason: Insomnia Social history: Lives with his 20-year-old son. Disabled. 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 Smoking 2 packs a day for most of his life now down to half a pack a day. Stop drinking heavy alcohol about 20 years ago. Has done marijuana. Physical examination: VITAL SIGNS: He 7.4, 97, 20, 93/62, 96% room air GENERAL: Reclining in bed, tired EYES: Pupils equal. Conjunctiva normal. HEENT: External appearance of nose and ears normal, oral cavity grossly normal. NECK: JVD unable to assess; masses not palpable. HEART: First and second heart sounds are normal; significant edema LUNGS: Respiratory rate normal; diminished breath sounds ABDOMEN: Soft, nontender, liver spleen not palpable, no masses palpable. PSYCH: Alert and oriented x3; mood and affect anxiousl. MUSCULOSKELETAL:No Clubbing/cyanosis;muscles-grossly intact DERMATOLOGICAL: Right foot wound-dressing. More details - nursing notes. INVESTIGATIONS, reviewed in the clinical context: May 16: Creatinine 1.94 May 15: White count 15.4 hemoglobin 12.4 potassium 3.7 BUN 59 creatinine 1.55 05/14/2023: White count 15 hemoglobin 13 platelets 254 sodium 134 potassium 4.2 BUN 58 creatinine 1.23 lactic acid 2.6 Assessment and plan: -Acute right lower leg cellulitis, infected right heel diabetic ulcer with prior history of debridement. Has not been able to follow the wound care center because of transport. Wound swab for Gram stain and culture. IV Unasyn Underwent debridement by Dr. Lugo Followed by ID and Dr. Lugo from vascular. -Sepsis from right leg wound. IV Unasyn Hold off IV fluids because of CHF. -Acute on chronic congestive heart failure nonischemic cardiomyopathy systolic dysfunction EF less than 20%: Slow to respond IV Lasix 60 mg every 12.. Aldactone 25 mg . Entresto-hold because of renal function AICD. - COPD current smoker Ventolin. -Diabetes mellitus type 2 chronically on insulin, uncontrolled with hyperglycemia and hypoglycemia. Lantus 30 units subcu daily . Diabetic diet. Accu-Cheks and sliding scale -Hyperlipidemia -Chronic kidney disease stage III from diabetic nephropathy and nephrosclerosis Baseline creatinine of 1.2 on May 14. -Acute kidney injury likely ATN from cardiorenal syndrome and possible vancomycin: Worsening Follow renal function. Entresto held Nephrology following -Essential hypertension Entresto-hold for now -Obstructive sleep apnea sometimes uses CPAP machine -Diabetic peripheral neuropathy -Anxiety Ativan when necessary -DJD Tylenol when necessary -Chronic nicotine dependence patient cigarette smoker Nicotine patch 14 -AICD -Lower extremity chronic venous insufficiency IV Lasix. Cutback nose of Lantus. Wound care to continue. Stop vancomycin because of renal function.
--- NOTE | 2023-05-16 20:32 | OP ---
DATE OF SERVICE: 05/16/2023 OPERATIVE REPORT PREOPERATIVE DIAGNOSIS: Infected wound right heel, measurement is 6 x 6 x 0.5 cm. POSTOPERATIVE DIAGNOSIS: Infected wound right heel 6 x 7 x 1 cm. PROCEDURE PERFORMED: Debridement of the wound right foot, ankle down to the calcaneus bone. DESCRIPTION OF PROCEDURE: This patient has a chronic wound of the right foot. The patient came to the emergency room. The patient was taken to the operating room, 1% lidocaine with IV sedation. Debridement was done of the right heel down to subcu fat and right heel. All the devitalized tissue was removed down to the bone which was sent for deep culture. There were some bleeding points which were electrocoagulated. Wound was irrigated with hydrogen peroxide and saline. Hydrogel applied to the wound and pressure dressing applied. Patient transferred to the recovery room in satisfactory condition. Blood loss 50 mL. PLAN: Is we will use Medihoney gel to the wound. Dressing should be changed daily, 1- pillow elevation. Patient in on IV antibiotics under Infectious Disease. MMODL / IJN: [id number] / MTDJuan Carlos
[2023-05-16 21:27] LABS: Glucose,Whole Blood 154 mg/dL (70-110)
--- NOTE | 2023-05-16 23:25 | P.PN ---
Subjective Progress Note Date: 05/16/23 Principal diagnosis: R diabetic foot/osteomyelitis Patient is a 52-year-old male with a past medical history significant for right heel diabetic foot infection with an episode of osteomyelitis. Patient completed his antibiotic therapy now presenting back to the hospital with worsening wound On today's evaluation that is 05/16/2023, the patient denies having any fever or any chills he is breathing comfortably on room air no chest pain shortness with cough no nausea vomiting no abdominal pain or pain to the right foot wound area. Patient did have a white count of 15.4 as of yesterday creatinine is 1.94 urine has been negative cultures are currently pending Objective - Vital Signs Vital signs: Vital Signs Temp 98.3 F 05/16/23 07:00 Pulse 100 05/16/23 07:00 Resp 14 05/16/23 07:00 BP 93/68 05/16/23 07:00 Pulse Ox 96 05/16/23 07:00 FiO2 Intake & Output 05/15/23 05/16/23 05/16/23 18:59 06:59 18:59 Intake Total 961 Balance 961 Intake: Oral 961 Other: # Voids 1 2 - Exam GENERAL DESCRIPTION: Middle-age male lying in bed in no distress RESPIRATORY SYSTEM: Unlabored breathing , decreased breath sounds at bases HEART: S1 S2 regular rate and rhythm ,no loud murmurs ABDOMEN: Soft , no tenderness EXTREMITIES: Right foot is currently dressed no drainage on the dressing - Labs CBC & Chem 7: 05/15/23 05:53 05/16/23 07:39 Labs: Abnormal Lab Results - Last 24 Hours (Table) 05/15/23 05/16/23 05/16/23 Range/Units 17:15 06:17 07:39 Creatinine 1.94 H (0.66-1.25) mg/dL POC Glucose (mg/dL) 68 L 69 L (70-110) mg/dL Microbiology - Last 24 Hours (Table) 05/14/23 16:55 Blood Culture - Preliminary Blood 05/14/23 17:05 Blood Culture - Preliminary Blood Assessment and Plan (1) Foot osteomyelitis, right Current Visit: Yes Status: Acute Code(s): M86.9 - OSTEOMYELITIS, UNSPECIFIED SNOMED Code(s): 8552317417593199 (2) Type 2 diabetes mellitus with right diabetic foot ulcer Current Visit: Yes Status: Acute Code(s): E11.621 - TYPE 2 DIABETES MELLITUS WITH FOOT ULCER; L97.519 - NON-PRS CHRONIC ULCER OTH PRT RIGHT FOOT W UNSP CIPRIANO FRANCISCO SNOMED Code(s): 694521031 (3) Wound infection Current Visit: Yes Status: Acute Code(s): T14.8XXA - OTHER INJURY OF UNSPECIFIED BODY REGION, INITIAL ENCOUNTER; L08.9 - LOCAL INFECTION OF THE SKIN AND SUBCUTANEOUS TISSUE, UNSP SNOMED Code(s): 52012123 Plan: 1patient with extensive right diabetic foot infection with evidence of necrosis and foul-smelling drainage send significant deep wound concerning for osteomy elitis and will need to cover for the polymicrobial stacy usually associated with the diabetic foot infection 2-mildly elevated creatinine high risk of nephrotoxicity 3patient has been evaluated by vascular surgery planning for debridement and deep culture. 4we will continue patient on vancomycin and Unasyn while watching his kidney function closely questions concern answered Dictation was produced using [employer] dictation software. please excuse any grammatical, word or spelling errors.
[2023-05-17] MEDS: AMPICILLIN-SULBACTAM 3 GM in SODIUM CHLORIDE 0.9% 100 ML IVPB SCH ×3 (00:36→12:43)
[2023-05-17] MEDS: FUROSEMIDE 10 MG/ML 10 ML VIAL IV SCH ×2 (06:06→21:54)
[2023-05-17] MEDS: INSULIN DETEMIR (LEVEMIR) 100 UNIT/ML SYR SQ SCH (06:06)
[2023-05-17 06:23] LABS: African American GFR (CKD) 42 (>60 ml/min/1.73 sqM); Anion Gap 10 mmol/L; Blood Urea Nitrogen 67 mg/dL (9-20); Calcium 8.5 mg/dL (8.4-10.2); Carbon Dioxide 28 mmol/L (22-30); Chloride 98 mmol/L (98-107); Glucose 125 mg/dL (74-99); Non-African American GFR(CKD) 36 (>60 ml/min/1.73 sqM); Potassium 4.3 mmol/L (3.5-5.1); Sodium 136 mmol/L (137-145)
[2023-05-17 06:38] LABS: Glucose,Whole Blood 123 mg/dL (70-110)
[2023-05-17] MEDS: INSULIN ASPART (NovoLOG) 100 UNIT/ML VIAL SQ SCH ×4 (06:38→21:53)
[2023-05-17] MEDS: MIDODRINE 5 MG TAB PO SCH ×3 (07:28→17:14)
[2023-05-17] MEDS: ALBUTEROL NEBULIZED 2.5 MG/3 ML INHALATION PRN (08:56)
--- NOTE | 2023-05-17 09:03 | US ---
EXAMINATION TYPE: US kidneys/renal and bladder DATE OF EXAM: 05/16/2023 COMPARISON: 11/20/22 CLINICAL INDICATION: Male, 52 years old with history of francisco javier; francisco javier EXAM MEASUREMENTS: Right Kidney: 12.6 x 6.3 x 6.0 cm Left Kidney: 12.7 x 6.0 x 5.8 cm Right Kidney: No hydronephrosis or masses seen Left Kidney: No hydronephrosis or masses seen Bladder: Possible layer of debris seen Bilateral Jets seen: No IMPRESSION: 1. No hydronephrosis devices. 2. There is layering debris within the bladder. This could be post infectious or represent blood pro ducts correlate with urinalysis.
[2023-05-17] MEDS: CYCLOBENZAPRINE 10 MG TAB PO SCH ×5 (10:09→20:22)
[2023-05-17] MEDS: MORPHINE SULFATE IR 15 MG TABLET PO SCH ×4 (10:09→21:53)
[2023-05-17] MEDS: SPIRONOLACTONE 25 MG TAB PO SCH (10:14)
[2023-05-17] MEDS: ATORVASTATIN 40 MG TAB PO SCH (10:14)
[2023-05-17] MEDS: METOPROLOL SUCCINATE (ER) 25 MG TAB.ER.24H PO SCH (10:14)
[2023-05-17] MEDS: ASPIRIN 81 MG PO SCH (10:14)
[2023-05-17] MEDS: DULoxetine HCL 60 MG CAPSULE.DR PO SCH ×2 (10:14→20:22)
[2023-05-17] MEDS: NICOTINE 14MG/24HR PATCH TRANSDERM SCH (10:15)
[2023-05-17 12:11] LABS: Glucose,Whole Blood 192 mg/dL (70-110)
--- NOTE | 2023-05-17 12:43 | P.CRDCN ---
History of Present Illness Consult date: 05/17/23 Reason for Consult (text): Run of V. tach History of present illness: History of present illness: This is a 52-year-old male patient of Dr. Yared Abbasi with past medical history of nonischemic cardiomyopathy, hypertension, dyslipidemia, status post AICD, diabetes. We have been asked to evaluate the patient for run of V. tach. Patient has presented to the hospital due to right heel diabetic foot ulcer with osteomyelitis status post debridement. Patient had a run of nonsustained ventricular tachycardia of 13 beats. He does have AICD as noted above. Patient denies having any chest pain. Noted that patient has now been resumed on Entresto due to hypotension. Patient is currently on IV Lasix 60 mg every 12 hours. Sodium 136, potassium 4.3, BUN 67 creatinine 2.05. WBC 15.4, hemoglobin 12.4. Home cardiac medications: Lasix 80 mg twice daily, Entresto 24 mg26 mg twice daily, Aldactone 25 mg daily [address] [facility] Echocardiogram 06/2022 revealed EF less than 20% with global hypokinesia. Review Of Systems: At the time of my evaluation: Constitutional: No fever, no chills. No weakness, fatigue or lethargy. EENT: No headache. No dizziness. Lungs: No shortness of breath, cough, no sputum production. No wheezing. Cardiovascular: No chest pain, no lower extremity edema. No palpitations. No paroxysmal nocturnal dyspnea. No orthopnea. No lightheadedness or dizziness. No syncopal episodes. Abdominal: No abdominal pain. No nausea, vomiting. No diarrhea. Musculoskeletal: No myalgias. No muscle weakness, no frequent falls. Integumentary: Foot wounds. No rash. No unusual bruising. Neurologic: No aphasia. No facial droop. No change in mentation. No head injury. No headache. Physical examination: Gen: This is a 52-year-old male. He is resting bed and appears comfortable and in no acute distress. VS: reviewed HEENT: Head is atraumatic, normocephalic. Pupils equal, round. Sclerae is anicteric. NECK: Supple. No JVD. . LUNGS: Clear to auscultation. No wheezes or rhonchi. No intercostal retractions. HEART: Regular rate and rhythm. No murmur. ABDOMEN: Soft No tenderness. EXTREMITIES: Dressing on the right foot. No pedal edema. No calf tenderness. NEUROLOGICAL: Patient is awake, alert and oriented x3. Assessment: Nonsustained ventricular tachycardia, expected Diabetic foot ulcer Nonischemic cardiomyopathy status post AICD Hypertension Dyslipidemia Diabetes Plan: Entresto is on hold for hypotension Continue other cardiac medications No need for any cardiac workup at this time Discontinue cardiac monitoring Cardiology will sign off this case and follow on an as-needed basis. Please reconsult for any new concerns. Patient may follow-up in the office in one to [address] Yared Abbasi. Nurse practitioner note has been reviewed, I agree with documented findings and plan of care. Patient was seen and examined. Past Medical History Past Medical History: Asthma, Coronary Artery Disease (CAD), Chest Pain / Angina, Heart Failure, COPD, Diabetes Mellitus, GERD/Reflux, Hyperlipidemia, Hypertension, Myocardial Infarction (NM), Pneumonia, Sleep Apnea/CPAP/BIPAP, Supraventricular Tachycardia (SVT) Additional Past Medical History / Comment(s): Ischemic cardiomyopathy, chronic CHF, SVT, IDDM type II, KAMINI with CPAP occasionally used, chronic cervical/back pain, DJD, diabetic foot wounds x 4 months. Last Myocardial Infarction Date:: 12/11/17 History of Any Multi-Drug Resistant Organisms: MRSA Date of last positivie culture/infection: 03/10/20 MDRO Source:: MRSA TOE Past Surgical History: Adenoidectomy, AICD, Back Surgery, Cholecystectomy, EPS, Heart Catheterization, Pacemaker, Tonsillectomy Additional Past Surgical History / Comment(s): 12/10/17 cardiac cath, previous cardiac cath, 09/02/14 AICD/pacer, EGD/colonoscopy, low back surgery with fusion. Past Anesthesia/Blood Transfusion Reactions: Motion Sickness Additional Past Anesthesia/Blood Transfusion Reaction / Comment(s): Pt states he received blood with back surgery without reaction. Type of Cardiac Device: Permanent Pacemaker, AICD Device Placement Date:: 09-02-14 Past Psychological History: ADD/ADHD, Anxiety Additional Psychological History / Comment(s): Pt lives with his old son. There are cats in the home. Pt is very independent. He states he would like a walker d/t his L foot wound. He drives. Pt states he has ADHD. Pt is disabled. He has a glucometer and nebulizer. The patient worked in the past building [employer] and [employer]. Smoking Status: Current every day smoker Past Alcohol Use History: Occasional Additional Past Alcohol Use History / Comment(s): Pt started smoking in 1984 . Currently smokig 1/2 pack daily. Pt states he was a heavy drinker in the past but quit drinking 30 yrs ago. Past Drug Use History: Marijuana Additional Drug Use History / Comment(s): Occasional marijuana use. - Past Family History Father Additional Family Medical History / Comment(s): Pt has not kept in close contact with his father for many yrs. Father was an alcoholic and pt believes he has from cirrhosis of the liver. Mother History Unknown: Yes Additional Family Medical History / Comment(s): Pt is not in contact with his mother or his father who he has heard had . Medications and Allergies Home Medications Medication Instructions Recorded Confirmed Type Albuterol Inhaler [Ventolin Hfa 2 puff INHALATION RT-QID PRN 07/06/22 05/14/23 History Inhaler] INSULIN LISPRO (humaLOG) [humaLOG] 5 - 10 unit SQ ACHS PRN 07/06/22 05/14/23 History Morphine Sulfate Ir [MSIR] 30 mg PO QID 07/06/22 05/14/23 History Spironolactone [Aldactone] 25 mg PO DAILY #30 tab 07/10/22 05/14/23 Rx DULoxetine HCL [Cymbalta] 60 mg PO BID 11/18/22 05/14/23 History Furosemide [Lasix] 80 mg PO BID 11/18/22 05/14/23 History Sacubitril/Valsartan [Entresto 24 1 tab PO BID 11/18/22 05/14/23 History mg-26 mg Tablet] Cyclobenzaprine [Flexeril] 10 mg PO QID 05/14/23 05/14/23 History Insulin Glargine,Hum.rec.anlog 100 units SQ BID 05/14/23 05/14/23 History [Toujeo Solostar] Zolpidem [Ambien] 10 mg PO HS PRN 05/14/23 05/14/23 History Allergies Allergy/AdvReac Type Severity Reaction Status Date / Time azithromycin Allergy Anaphylaxis Verified 05/16/23 16:27 gemfibrozil [From Lopid] Allergy Rash/Hives Verified 05/16/23 16:27 Physical Exam Vitals: Vital Signs Temp Pulse Resp BP BP Pulse Ox 05/17/23 02:26 97.9 F 88 19 93/66 96 05/16/23 20:00 97.5 F L 101 H 17 107/45 99 05/16/23 17:48 93/62 05/16/23 17:42 97 20 89/60 96 05/16/23 17:27 88 16 83/53 95 05/16/23 17:12 97.4 F L 88 16 110/58 98 05/16/23 14:31 97.9 F 87 14 112/72 94 L Intake and Output 05/16/23 05/17/23 05/17/23 22:59 06:59 14:59 Intake Total 596 Output Total 680 320 Balance -84 -320 Intake: IV 300 Oral 296 Output: Urine 300 320 Post Void Residual 330 Estimated Blood Loss 50 Results 05/15/23 05:53 05/17/23 05:55 Comprehensive Metabolic Panel 05/16/23 05/17/23 Range/Units 07:39 05:55 Sodium 136 L (137-145) mmol/L Potassium 4.3 (3.5-5.1) mmol/L Chloride 98 (98-107) mmol/L Carbon Dioxide 28 (22-30) mmol/L BUN 67 H (9-20) mg/dL Creatinine 1.94 H 2.05 H (0.66-1.25) mg/dL Glucose 125 H (74-99) mg/dL Calcium 8.5 (8.4-10.2) mg/dL Current Medications Generic Name Dose Route Start Last Admin Trade Name Freq PRN Reason Stop Dose Admin Acetaminophen 650 mg 05/14/23 22:36 Acetaminophen Tab 325 Mg Tab PO Q6HR PRN Mild Pain or Fever > 100.5 Albuterol Sulfate 2.5 mg 05/14/23 22:22 05/15/23 11:41 Albuterol Nebulized 2.5 Mg/3 Ml INHALATION 2.5 mg RT-QID PRN Administration Shortness Of Breath Alprazolam 0.25 mg 05/14/23 22:36 Alprazolam 0.25 Mg Tab PO Q6HR PRN Anxiety Calcium Carbonate/Glycine 1,000 mg 05/14/23 22:36 Calcium Carbonate 500 Mg Chewable PO Q4HR PRN Dyspepsia Cyclobenzaprine HCl 10 mg 05/14/23 22:30 05/16/23 21:52 Cyclobenzaprine 10 Mg Tab PO Not Given QID LAN Dextrose/Water 25 ml 05/14/23 22:23 Dextrose 50% Syringe 50 Ml IVP PER PROTOCOL PRN Hypoglycemia Protocol Dextrose/Water 50 ml 05/14/23 22:23 Dextrose 50% Syringe 50 Ml IVP PER PROTOCOL PRN Hypoglycemia Protocol Duloxetine HCl 60 mg 05/14/23 22:30 05/16/23 21:53 Duloxetine Hcl 60 Mg Capsule.Dr PO 60 mg BID LAN Administration Furosemide 60 mg 05/16/23 06:00 05/17/23 06:06 Furosemide 10 Mg/Ml 10 Ml Vial IV 60 mg Q12H LAN Administration Ampicillin Sodium/Sulbactam 100 mls @ 200 mls/hr 05/15/23 12:30 05/17/23 06:06 Sodium 3 gm/ Sodium Chloride IVPB 200 mls/hr Q6HR [facility] Administration Protocol Insulin Aspart 0 unit 05/14/23 22:23 05/17/23 06:38 Insulin Aspart (Novolog) 100 Unit/Ml Vial SQ Not Given ACHS [facility] Protocol Insulin Detemir 30 unit 05/16/23 07:00 05/17/23 06:06 Insulin Detemir (Levemir) 100 Unit/Ml Syr SQ 30 unit DAILY@0700 [facility] Administration Lactulose 20 gm 05/14/23 22:36 Lactulose 20 Gm/30 Ml Cup PO DAILY PRN Constipation Melatonin 3 mg 05/14/23 22:36 Melatonin 3 Mg Tablet PO HS PRN Insomnia Midodrine 10 mg 05/16/23 12:30 05/17/23 07:28 Midodrine 5 Mg Tab PO 10 mg AC-TID [facility] Administration Morphine Sulfate 4 mg 05/14/23 21:24 Morphine Sulfate 4 Mg/Ml Syringe IV Q4HR PRN Severe Pain (Scale 7 to 10) Morphine Sulfate 30 mg 05/14/23 22:30 05/16/23 22:09 Morphine Sulfate Ir 15 Mg Tablet PO Not Given QID LAN Naloxone HCl 0.2 mg 05/14/23 21:24 Naloxone 0.4 Mg/Ml 1 Ml Vial IV Q2M PRN Opioid Reversal Nicotine 1 patch 05/14/23 22:45 05/16/23 11:02 Nicotine 14mg/24hr Patch TRANSDERM 1 patch DAILY LAN Administration Ondansetron HCl 4 mg 05/14/23 21:24 05/14/23 22:17 Ondansetron 4 Mg/2 Ml Vial IVP 4 mg Q8HR PRN Administration Nausea And Vomiting Silver Sulfadiazine 1 applic 05/15/23 21:00 05/16/23 22:09 Silver Sulfadiazine 1% Cream 25 Gm Tube TOPICAL Not Given BID [facility] Protocol Spironolactone 25 mg 05/15/23 09:00 05/16/23 10:56 Spironolactone 25 Mg Tab PO Not Given DAILY [facility] Zolpidem Tartrate 10 mg 05/14/23 22:22 Zolpidem 5 Mg Tab PO HS PRN Insomnia Intake and Output 05/16/23 05/17/23 05/17/23 22:59 06:59 14:59 Intake Total 596 Output Total 680 320 Balance -84 -320 Intake: IV 300 Oral 296 Output: Urine 300 320 Post Void Residual 330 Estimated Blood Loss 50 05/15/23 05:53 05/17/23 05:55
--- NOTE | 2023-05-17 14:27 | P.PN ---
Progress Note - Text Progress Note Date: 05/17/23 Chief Complaint: Right foot wound This is a 52-year-old patient, follows with Dr. Rodríguez. Chronic stable medical condition include CHF EF less than 20%, COPD, diabetes mellitus type 2, hypertension, hyperlipidemia, obstructive sleep apnea, anxiety, AICD, lower extremity venous insufficiency. Patient had lower extremity wounds and has been followed by ID and Dr. Lugo from vascular. Patient has not been able to make a wound care center regularly because of transportation issues. Now presents with worsening wound on the right foot. Has had previous debridement of same. It is draining. Somewhat foul-smelling.. Patient had some chills. May 15: Patient had right foot wound debridement with Dr. Lugo. Currently in dressing. Patient received IV fluids from the ER. Stop the same. IV Lasix. Patient is on IV Unasyn and IV vancomycin per ID. Significant edema. May 16: IV Lasix 60 mg every 12. Unclear if he is making much urine. IV vancomycin was discontinued yesterday because of renal function. Some decrease in edema. Oral intake good. IV Unasyn. Being followed by ID. May 17: Making good urine. I's and O not well documented. Remains on IV Lasix 60:12. Still a significant edema. Breathing is stable. IV Unasyn. Creatinine 2.05. I discussed with Dr. Lugo from vascular. Patient might need a amputation down the road. Patient has several social issues going on. Active Medications Acetaminophen (Acetaminophen Tab 325 Mg Tab) 650 mg PO Q6HR PRN PRN Reason: Mild Pain or Fever > 100.5 Albuterol Sulfate (Albuterol Nebulized 2.5 Mg/3 Ml) 2.5 mg INHALATION RT-QID PRN PRN Reason: Shortness Of Breath Last Admin: 05/17/23 08:56 Dose: 2.5 mg Alprazolam (Alprazolam 0.25 Mg Tab) 0.25 mg PO Q6HR PRN PRN Reason: Anxiety Aspirin (Aspirin 81 Mg) 81 mg PO DAILY [facility] Last Admin: 05/17/23 10:14 Dose: 81 mg Atorvastatin Calcium (Atorvastatin 40 Mg Tab) 40 mg PO DAILY [facility] Last Admin: 05/17/23 10:14 Dose: 40 mg Calcium Carbonate/Glycine (Calcium Carbonate 500 Mg Chewable) 1,000 mg PO Q4HR PRN PRN Reason: Dyspepsia Cyclobenzaprine HCl (Cyclobenzaprine 10 Mg Tab) 10 mg PO QID [facility] Last Admin: 05/17/23 12:38 Dose: Not Given Dextrose/Water (Dextrose 50% Syringe 50 Ml) 25 ml IVP PER PROTOCOL PRN; Protocol PRN Reason: Hypoglycemia Dextrose/Water (Dextrose 50% Syringe 50 Ml) 50 ml IVP PER PROTOCOL PRN; Protocol PRN Reason: Hypoglycemia Duloxetine HCl (Duloxetine Hcl 60 Mg Capsule.Dr) 60 mg PO BID [facility] Last Admin: 05/17/23 10:14 Dose: 60 mg Furosemide (Furosemide 10 Mg/Ml 10 Ml Vial) 60 mg IV Q12H [facility] Last Admin: 05/17/23 06:06 Dose: 60 mg Ampicillin Sodium/Sulbactam (Sodium 3 gm/ Sodium Chloride) 100 mls @ 200 mls/hr IVPB Q6HR [facility]; Protocol Last Admin: 05/17/23 12:43 Dose: 200 mls/hr Insulin Aspart (Insulin Aspart (Novolog) 100 Unit/Ml Vial) 0 unit SQ ACHS [facility]; Protocol Last Admin: 05/17/23 12:43 Dose: 3 unit Insulin Detemir (Insulin Detemir (Levemir) 100 Unit/Ml Syr) 30 unit SQ DAILY@0700 [facility] Last Admin: 05/17/23 06:06 Dose: 30 unit Lactulose (Lactulose 20 Gm/30 Ml Cup) 20 gm PO DAILY PRN PRN Reason: Constipation Melatonin (Melatonin 3 Mg Tablet) 3 mg PO HS PRN PRN Reason: Insomnia Metoprolol Succinate (Metoprolol Succinate (Er) 25 Mg Tab.Er.24h) 25 mg PO DAILY [facility] Last Admin: 05/17/23 10:14 Dose: 25 mg Midodrine (Midodrine 5 Mg Tab) 10 mg PO AC-TID [facility] Last Admin: 05/17/23 12:43 Dose: 10 mg Morphine Sulfate (Morphine Sulfate 4 Mg/Ml Syringe) 4 mg IV Q4HR PRN PRN Reason: Severe Pain (Scale 7 to 10) Morphine Sulfate (Morphine Sulfate Ir 15 Mg Tablet) 30 mg PO QID [facility] Last Admin: 05/17/23 12:37 Dose: Not Given Naloxone HCl (Naloxone 0.4 Mg/Ml 1 Ml Vial) 0.2 mg IV Q2M PRN PRN Reason: Opioid Reversal Nicotine (Nicotine 14mg/24hr Patch) 1 patch TRANSDERM DAILY LAN Last Admin: 05/17/23 10:15 Dose: 1 patch Ondansetron HCl (Ondansetron 4 Mg/2 Ml Vial) 4 mg IVP Q8HR PRN PRN Reason: Nausea And Vomiting Last Admin: 05/14/23 22:17 Dose: 4 mg Silver Sulfadiazine (Silver Sulfadiazine 1% Cream 25 Gm Tube) 1 applic TOPICAL BID LAN; Protocol Last Admin: 05/17/23 10:20 Dose: 1 applic Spironolactone (Spironolactone 25 Mg Tab) 25 mg PO DAILY LAN Last Admin: 05/17/23 10:14 Dose: 25 mg Zolpidem Tartrate (Zolpidem 5 Mg Tab) 10 mg PO HS PRN PRN Reason: Insomnia Social history: Lives with his 20-year-old son. Disabled. 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 Smoking 2 packs a day for most of his life now down to half a pack a day. Stop drinking heavy alcohol about 20 years ago. Has done marijuana. Physical examination: VITAL SIGNS: 97.9, 83, 18, 92/68, 96% room air GENERAL: Sitting at the edge of the bed EYES: Pupils equal. Conjunctiva normal. HEENT: External appearance of nose and ears normal, oral cavity grossly normal. NECK: JVD unable to assess; masses not palpable. HEART: First and second heart sounds are normal; significant edema LUNGS: Respiratory rate normal; diminished breath sounds ABDOMEN: Soft, nontender, liver spleen not palpable, no masses palpable. PSYCH: Alert and oriented x3; mood and affect anxiousl. MUSCULOSKELETAL:No Clubbing/cyanosis;muscles-grossly intact DERMATOLOGICAL: Right foot wound-dressing. More details - nursing notes. INVESTIGATIONS, reviewed in the clinical context: Wound culture: Gram-negative bacilli May 17: Creatinine 2.05 May 16: Creatinine 1.94 May 15: White count 15.4 hemoglobin 12.4 potassium 3.7 BUN 59 creatinine 1.55 05/14/2023: White count 15 hemoglobin 13 platelets 254 sodium 134 potassium 4.2 BUN 58 creatinine 1.23 lactic acid 2.6 Assessment and plan: -Acute right lower leg cellulitis, infected right heel diabetic ulcer with prior history of debridement. Has not been able to follow the wound care center because of transport. Wound swab for Gram stain and culture. Gram-negative bacilli IV Unasyn Underwent debridement by Dr. Lugo Followed by ID and Dr. Lugo from vascular. -Sepsis from right leg wound. IV Unasyn Hold off IV fluids because of CHF. -Acute on chronic congestive heart failure nonischemic cardiomyopathy systolic dysfunction EF less than 20%: Slow to respond IV Lasix 60 mg every 12.. Aldactone 25 mg . Entresto-hold because of renal function AICD. - COPD current smoker Ventolin. -Diabetes mellitus type 2 chronically on insulin, uncontrolled with hyperglycemia and hypoglycemia. Lantus 30 units subcu daily . Diabetic diet. Accu-Cheks and sliding scale -Hyperlipidemia -Chronic kidney disease stage III from diabetic nephropathy and nephrosclerosis Baseline creatinine of 1.2 on May 14. -Acute kidney injury likely ATN from cardiorenal syndrome and possible vancomycin: Worsening Follow renal function. Entresto held Nephrology following -Essential hypertension Entresto-hold for now -Obstructive sleep apnea sometimes uses CPAP machine -Diabetic peripheral neuropathy -Anxiety Ativan when necessary -DJD Tylenol when necessary -Chronic nicotine dependence patient cigarette smoker Nicotine patch 14 -AICD -Lower extremity chronic venous insufficiency IV Lasix. . Wound care to continue. Follow with multiple consultants.
--- NOTE | 2023-05-17 17:00 | P.PN ---
Subjective Progress Note Date: 05/17/23 Principal diagnosis: R diabetic foot/osteomyelitis Patient is a 52-year-old male with a past medical history significant for right heel diabetic foot infection with an episode of osteomyelitis. Patient completed his antibiotic therapy now presenting back to the hospital with worsening wound, the patient did have a surgical debridement of the right heel wound completed on 01/14/2023 On today's evaluation that is 05/17/2023, the patient remains to be afebrile the patient is breathing comfortably on room air without need for supplemental oxygen, the patient denies chest pain, shortness of breath or cough, patient denies nausea/vomiting , no diarrhea and no abdominal pain , the patient denies pain to the right foot wound area. Patient did have a white count of 15.4 as of 05/15/2023 creatinine is 2.05 urine has been negative cultures are currently growing gram-negative Objective - Vital Signs Vital signs: Vital Signs Temp 98 F 05/17/23 07:34 Pulse 91 05/17/23 09:05 Resp 18 05/17/23 07:34 BP 90/69 05/17/23 07:34 Pulse Ox 94 L 05/17/23 07:34 FiO2 Intake & Output 05/16/23 05/17/23 05/17/23 18:59 06:59 18:59 Intake Total 1557 118 Output Total 780 620 Balance 777 -620 118 Intake: IV 300 Oral 1257 118 Output: Urine 400 620 Post Void Residual 330 Estimated Blood Loss 50 Other: Voiding Method Urinal Urinal # Voids 1 - Exam GENERAL DESCRIPTION: Middle-age male lying in bed in no distress RESPIRATORY SYSTEM: Unlabored breathing , decreased breath sounds at bases HEART: S1 S2 regular rate and rhythm ,no loud murmurs ABDOMEN: Soft , no tenderness EXTREMITIES: Right foot is currently dressed no drainage on the dressing - Labs CBC & Chem 7: 05/15/23 05:53 05/17/23 05:55 Labs: Abnormal Lab Results - Last 24 Hours (Table) 05/16/23 05/16/23 05/17/23 Range/Units 16:26 21:26 05:55 Sodium 136 L (137-145) mmol/L BUN 67 H (9-20) mg/dL Creatinine 2.05 H (0.66-1.25) mg/dL Glucose 125 H (74-99) mg/dL POC Glucose (mg/dL) 133 H 154 H (70-110) mg/dL 05/17/23 05/17/23 Range/Units 06:37 12:09 Sodium (137-145) mmol/L BUN (9-20) mg/dL Creatinine (0.66-1.25) mg/dL Glucose (74-99) mg/dL POC Glucose (mg/dL) 123 H 192 H (70-110) mg/dL Microbiology - Last 24 Hours (Table) 05/15/23 16:20 Gram Stain - Preliminary Heel - Right Tissue Culture - Preliminary Gram Neg Bacilli 05/14/23 16:55 Blood Culture - Preliminary Blood 05/14/23 17:05 Blood Culture - Preliminary Blood Assessment and Plan (1) Foot osteomyelitis, right Current Visit: Yes Status: Acute Code(s): M86.9 - OSTEOMYELITIS, UNSPECIFIED SNOMED Code(s): 0968654394318336 (2) Type 2 diabetes mellitus with right diabetic foot ulcer Current Visit: Yes Status: Acute Code(s): E11.621 - TYPE 2 DIABETES MELLITUS WITH FOOT ULCER; L97.519 - NON-PRS CHRONIC ULCER OTH PRT RIGHT FOOT W UNSP SEVERITY SNOMED Code(s): 856181641 (3) Wound infection Current Visit: Yes Status: Acute Code(s): T14.8XXA - OTHER INJURY OF UNSPECIFIED BODY REGION, INITIAL ENCOUNTER; L08.9 - LOCAL INFECTION OF THE SKIN AND SUBCUTANEOUS TISSUE, UNSP SNOMED Code(s): 99508866 Plan: 1patient with extensive right diabetic foot infection with evidence of necrosis and foul-smelling drainage send significant deep wound concerning for osteomyelitis and will need to cover for the polymicrobial stacy usually associated with the diabetic foot infection 2-mildly elevated creatinine high risk of nephrotoxicity 3patient has been evaluated by vascular surgery and is status post debridement and deep culture. 4cultures currently growing gram-negative we will discontinue vancomycin and Unasyn , start the patient on Zosyn while waiting for the culture finalized Dictation was produced using [employer] dictation software. please excuse any grammatical, word or spelling errors.
[2023-05-17] MEDS: ONDANSETRON 4 MG/2 ML VIAL IVP PRN (17:14)
[2023-05-17] MEDS: LACTULOSE 20 GM/30 ML CUP PO PRN (17:17)
[2023-05-17 17:30] LABS: Glucose,Whole Blood 174 mg/dL (70-110)
[2023-05-17] MEDS: PIPERACILLIN-TAZOBACTAM 3.375 GM in SODIUM CHLORIDE 0.9% 100 ML IVPB SCH (17:42)
--- NOTE | 2023-05-17 18:13 | P.PN ---
Subjective Patient is seen for f/u for ANGY. Serum creatinine at about 1.9-2.0 mg/dL BP remains low. Maintained on midodrine. 24 hr UOP 1.0L Maintained on IV lasix Objective - Vital Signs Vital signs: Vital Signs Temp 97.5 F L 05/17/23 17:42 Pulse 71 05/17/23 17:42 Resp 18 05/17/23 17:42 BP 86/56 05/17/23 17:42 Pulse Ox 97 05/17/23 17:42 FiO2 Intake & Output 05/16/23 05/17/23 05/17/23 18:59 06:59 18:59 Intake Total 1557 118 Output Total 780 620 Balance 777 -620 118 Weight 102.058 kg Intake: IV 300 Oral 1257 118 Output: Urine 400 620 Post Void Residual 330 Estimated Blood Loss 50 Other: Voiding Method Urinal Urinal # Voids 1 300 - Exam Awake, comfortable Lungs are clear CVS S1 and S2 Abdomen is soft, non tender. Ext. 2+ edema - Labs CBC & Chem 7: 05/15/23 05:53 05/17/23 05:55 Labs: Abnormal Lab Results - Last 24 Hours (Table) 05/16/23 05/17/23 05/17/23 Range/Units 21:26 05:55 06:37 Sodium 136 L (137-145) mmol/L BUN 67 H (9-20) mg/dL Creatinine 2.05 H (0.66-1.25) mg/dL Glucose 125 H (74-99) mg/dL POC Glucose (mg/dL) 154 H 123 H (70-110) mg/dL 05/17/23 05/17/23 Range/Units 12:09 17:30 Sodium (137-145) mmol/L BUN (9-20) mg/dL Creatinine (0.66-1.25) mg/dL Glucose (74-99) mg/dL POC Glucose (mg/dL) 192 H 174 H (70-110) mg/dL Microbiology - Last 24 Hours (Table) 05/15/23 16:20 Gram Stain - Preliminary Heel - Right Tissue Culture - Preliminary Gram Neg Bacilli 05/14/23 16:55 Blood Culture - Preliminary Blood 05/14/23 17:05 Blood Culture - Preliminary Blood Assessment and Plan Assessment: 1. Acute kidney injury secondary to ATN secondary to hypotension and cardiorenal syndrome. Creatinine 1.23 on admission and is up to 2.0 today. 2. Acute on chronic systolic CHF with ejection fraction of less than 20% with moderate to severe mitral regurgitation, moderate tricuspid regurgitation and severe pulmonary hypertension noted on echocardiogram done in June 2022. 3. Volume overload. 4. Right foot wound being followed by vascular surgery and infectious disease. Status post debridement. On antibiotics. 5. Diabetes mellitus. Plan: Continue with midodrine. Repeat labs in am. Consider dobutamine given the severe cardiomyopathy and EF <20%
[2023-05-17 21:12] LABS: Glucose,Whole Blood 165 mg/dL (70-110)
[2023-05-18] MEDS: PIPERACILLIN-TAZOBACTAM 3.375 GM in SODIUM CHLORIDE 0.9% 100 ML IVPB SCH ×3 (00:13→17:30)
[2023-05-18] MEDS: FUROSEMIDE 10 MG/ML 10 ML VIAL IV SCH (05:52)
[2023-05-18 06:25] LABS: Glucose,Whole Blood 122 mg/dL (70-110)
[2023-05-18] MEDS: MIDODRINE 5 MG TAB PO SCH ×2 (06:32→13:20)
[2023-05-18] MEDS: INSULIN ASPART (NovoLOG) 100 UNIT/ML VIAL SQ SCH ×4 (06:33→20:45)
[2023-05-18] MEDS: INSULIN DETEMIR (LEVEMIR) 100 UNIT/ML SYR SQ SCH (08:47)
[2023-05-18] MEDS: MORPHINE SULFATE IR 15 MG TABLET PO SCH ×4 (08:47→20:53)
[2023-05-18] MEDS: DULoxetine HCL 60 MG CAPSULE.DR PO SCH ×2 (08:48→20:53)
[2023-05-18] MEDS: NICOTINE 14MG/24HR PATCH TRANSDERM SCH (08:48)
[2023-05-18] MEDS: CYCLOBENZAPRINE 10 MG TAB PO SCH ×4 (08:48→20:53)
[2023-05-18] MEDS: ASPIRIN 81 MG PO SCH (08:48)
[2023-05-18] MEDS: ATORVASTATIN 40 MG TAB PO SCH (08:48)
[2023-05-18] MEDS: SPIRONOLACTONE 25 MG TAB PO SCH (08:48)
[2023-05-18] MEDS: METOPROLOL SUCCINATE (ER) 25 MG TAB.ER.24H PO SCH (08:48)
[2023-05-18 10:53] LABS: African American GFR (CKD) 31 (>60 ml/min/1.73 sqM); Anion Gap 16 mmol/L; Blood Urea Nitrogen 72 mg/dL (9-20); Calcium 8.6 mg/dL (8.4-10.2); Carbon Dioxide 21 mmol/L (22-30); Chloride 97 mmol/L (98-107); Glucose 103 mg/dL (74-99); Non-African American GFR(CKD) 26 (>60 ml/min/1.73 sqM); Potassium 4.7 mmol/L (3.5-5.1); Sodium 134 mmol/L (137-145)
[2023-05-18 12:05] LABS: Glucose,Whole Blood 79 mg/dL (70-110)
[2023-05-18] MEDS: ONDANSETRON 4 MG/2 ML VIAL IVP PRN (12:20)
[2023-05-18] MEDS: LACTULOSE 20 GM/30 ML CUP PO PRN (12:20)
--- NOTE | 2023-05-18 12:23 | P.PN ---
Subjective Patient is seen for f/u for ANGY. Serum creatinine at about 1.9-2.0 mg/dL BP remains low. Maintained on midodrine. 24 hr UOP 1.0L Maintained on IV lasix. Serum creatinine increased to 2.6 mg/dL. Patient remains with significant lower extremity edema. Objective - Vital Signs Vital signs: Vital Signs Temp 98.1 F 05/18/23 07:15 Pulse 77 05/18/23 07:15 Resp 16 05/18/23 07:15 BP 93/72 05/18/23 07:15 Pulse Ox 99 05/18/23 07:15 FiO2 Intake & Output 05/17/23 05/18/23 05/18/23 18:59 06:59 18:59 Intake Total 118 Output Total 100 Balance 118 -100 Weight 102.058 kg 115.2 kg Intake: Oral 118 Output: Urine 100 Other: Voiding Method Urinal Toilet Urinal # Voids 300 3 - Exam Awake, comfortable Lungs are clear CVS S1 and S2 Abdomen is soft, non tender. Ext. 3+ edema bilaterally, right leg is wrapped [employer] exam grossly intact - Labs CBC & Chem 7: 05/15/23 05:53 05/18/23 10:21 Labs: Abnormal Lab Results - Last 24 Hours (Table) 05/17/23 05/17/23 05/18/23 Range/Units 17:30 21:10 06:24 Sodium (137-145) mmol/L Chloride (98-107) mmol/L Carbon Dioxide (22-30) mmol/L BUN (9-20) mg/dL Creatinine (0.66-1.25) mg/dL Glucose (74-99) mg/dL POC Glucose (mg/dL) 174 H 165 H 122 H (70-110) mg/dL 05/18/23 Range/Units 10:21 Sodium 134 L (137-145) mmol/L Chloride 97 L (98-107) mmol/L Carbon Dioxide 21 L (22-30) mmol/L BUN 72 H (9-20) mg/dL Creatinine 2.64 H (0.66-1.25) mg/dL Glucose 103 H (74-99) mg/dL POC Glucose (mg/dL) (70-110) mg/dL Microbiology - Last 24 Hours (Table) 05/16/23 17:06 Gram Stain - Preliminary Heel - Right Tissue Culture - Preliminary Gram Neg Bacilli 05/14/23 17:05 Blood Culture Gram Stain - Preliminary Blood Blood Culture - Preliminary 05/15/23 16:20 Gram Stain - Preliminary Heel - Right Tissue Culture - Preliminary Proteus vulgaris Strep agalactiae - (group b) 05/14/23 16:55 Blood Culture - Preliminary Blood Assessment and Plan Assessment: 1. Acute kidney injury secondary to ATN secondary to hypotension and cardiorenal syndrome. Creatinine 1.23 on admission and is up to 2.6 today. We will discuss with cardiology regarding dobutamine infusion as renal function continues to worsen 2. Acute on chronic systolic CHF with ejection fraction of less than 20% with moderate to severe mitral regurgitation, moderate tricuspid regurgitation and severe pulmonary hypertension noted on echocardiogram done in June 2022. 3. Volume overload. 4. Right foot wound being followed by vascular surgery and infectious disease. Status post debridement. On antibiotics. 5. Diabetes mellitus. Plan: Continue with midodrine. Repeat labs in am. Discuss with cardiology regarding starting dobutamine given the severe cardiomyopathy and EF <20%
[2023-05-18] MEDS ORDERED: SPIRONOLACTONE 25 MG TAB PO SCH (12:45)
[2023-05-18] MEDS ORDERED: BUMETANIDE 0.25 MG/ML 4 ML VIAL IVP SCH (12:45)
--- NOTE | 2023-05-18 12:45 | P.PN ---
Subjective Progress Note Date: 05/18/23 History of present illness: This is a 52-year-old male patient of Dr. Yared Abbasi with past medical history of nonischemic cardiomyopathy, hypertension, dyslipidemia, status post AICD, diabetes. We have been asked to evaluate the patient for run of V. tach. Patient has presented to the hospital due to right heel diabetic foot ulcer with osteomyelitis status post debridement. Patient had a run of nonsustained ventricular tachycardia of 13 beats. He does have AICD as noted above. Patient denies having any chest pain. Noted that patient has now been resumed on Entresto due to hypotension. Patient is currently on IV Lasix 60 mg every 12 hours. Sodium 136, potassium 4.3, BUN 67 creatinine 2.05. WBC 15.4, hemoglobin 12.4. Home cardiac medications: Lasix 80 mg twice daily, Entresto 24 mg26 mg twice daily, Aldactone 25 mg daily [address] single-[address] [facility] Echocardiogram 06/2022 revealed EF less than 20% with global hypokinesia. Review Of Systems: At the time of my evaluation: Constitutional: No fever, no chills. No weakness, fatigue or lethargy. EENT: No headache. No dizziness. Lungs: No shortness of breath, cough, no sputum production. No wheezing. Cardiovascular: No chest pain, no lower extremity edema. No palpitations. No paroxysmal nocturnal dyspnea. No orthopnea. No lightheadedness or dizziness. No syncopal episodes. Abdominal: No abdominal pain. No nausea, vomiting. No diarrhea. Musculoskeletal: No myalgias. No muscle weakness, no frequent falls. Integumentary: Foot wounds. No rash. No unusual bruising. Neurologic: No aphasia. No facial droop. No change in mentation. No head injury. No headache. Physical examination: Gen: This is a 52-year-old male. He is resting bed and appears comfortable and in no acute distress. VS: reviewed HEENT: Head is atraumatic, normocephalic. Pupils equal, round. Sclerae is anicteric. NECK: Supple. No JVD. . LUNGS: Clear to auscultation. No wheezes or rhonchi. No intercostal retractions. HEART: Regular rate and rhythm. No murmur. ABDOMEN: Soft No tenderness. EXTREMITIES: Dressing on the right foot. No pedal edema. No calf tenderness. NEUROLOGICAL: Patient is awake, alert and oriented x3. Assessment: Acute systolic heart failure exacerbation Nonsustained ventricular tachycardia, expected Diabetic foot ulcer Nonischemic cardiomyopathy EF 20%, status post AICD Hypertension Dyslipidemia Type II Diabetes Smoker, No compliance Plan: Patient is significantly volume overloaded with edema up to mid thigh, sacrum with elevated JVD. He is warm to touch. He is not yet and cardiac shock. His blood pressure is low because of his low EF. Start Bumex 2 mg IV twice a day. Reduce Aldactone 12.5 mg daily Reduce metoprolol succinate to 12.5 mg daily Follow kidney function tomorrow, once kidney function improves, will add Farxiga Obtain bladder scans look for any obstructive uropathy especially due to high BUN/creatinine ratio. Suspect this is from central venous congestion Do not give midodrine until SBP is less than 80 and mean arterial pressure is less than 60 mmHg Poor prognosis. Objective - Vital Signs Vital signs: Vital Signs Temp 98.1 F 05/18/23 07:15 Pulse 77 05/18/23 07:15 Resp 16 05/18/23 07:15 BP 93/72 05/18/23 07:15 Pulse Ox 99 05/18/23 07:15 FiO2 Intake & Output 05/17/23 05/18/23 05/18/23 18:59 06:59 18:59 Intake Total 118 Output Total 100 Balance 118 -100 Weight 102.058 kg 115.2 kg Intake: Oral 118 Output: Urine 100 Other: Voiding Method Urinal Toilet Urinal # Voids 300 3 - Labs CBC & Chem 7: 05/15/23 05:53 05/18/23 10:21 Labs: Abnormal Lab Results - Last 24 Hours (Table) 05/17/23 05/17/23 05/18/23 Range/Units 17:30 21:10 06:24 Sodium (137-145) mmol/L Chloride (98-107) mmol/L Carbon Dioxide (22-30) mmol/L BUN (9-20) mg/dL Creatinine (0.66-1.25) mg/dL Glucose (74-99) mg/dL POC Glucose (mg/dL) 174 H 165 H 122 H (70-110) mg/dL 05/18/23 Range/Units 10:21 Sodium 134 L (137-145) mmol/L Chloride 97 L (98-107) mmol/L Carbon Dioxide 21 L (22-30) mmol/L BUN 72 H (9-20) mg/dL Creatinine 2.64 H (0.66-1.25) mg/dL Glucose 103 H (74-99) mg/dL POC Glucose (mg/dL) (70-110) mg/dL Microbiology - Last 24 Hours (Table) 05/16/23 17:06 Gram Stain - Preliminary Heel - Right Tissue Culture - Preliminary Gram Neg Bacilli 05/14/23 17:05 Blood Culture Gram Stain - Preliminary Blood Blood Culture - Preliminary 05/15/23 16:20 Gram Stain - Preliminary Heel - Right Tissue Culture - Preliminary Proteus vulgaris Strep agalactiae - (group b) 05/14/23 16:55 Blood Culture - Preliminary Blood
--- NOTE | 2023-05-18 12:46 | P.PN ---
Subjective Progress Note Date: 05/18/23 Principal diagnosis: R diabetic foot/osteomyelitis Patient is a 52-year-old male with a past medical history significant for right heel diabetic foot infection with an episode of osteomyelitis. Patient completed his antibiotic therapy now presenting back to the hospital with worsening wound, the patient did have a surgical debridement of the right heel wound completed on 01/14/2023 On today's evaluation that is 05/18/2023, the patient denies any fever or any chills, the patient is breathing comfortably on room air , the patient denies chest pain, shortness of breath and no significant cough, patient denies abdominal pain, no nausea/vomiting or diarrhea , the patient denies pain to the right foot wound area. Patient did have a white count of 15.4 as of 05/15/2023 creatinine is 2.64 urine has been negative cultures are currently growing Proteus and Streptococcus agalactiae Objective - Vital Signs Vital signs: Vital Signs Temp 98.1 F 05/18/23 07:15 Pulse 77 05/18/23 07:15 Resp 16 05/18/23 07:15 BP 93/72 05/18/23 07:15 Pulse Ox 99 05/18/23 07:15 FiO2 Intake & Output 05/17/23 05/18/23 05/18/23 18:59 06:59 18:59 Intake Total 118 Balance 118 Weight 102.058 kg 115.2 kg Intake: Oral 118 Other: Voiding Method Urinal Toilet Urinal # Voids 300 3 - Exam GENERAL DESCRIPTION: Middle-age male lying in bed in no distress RESPIRATORY SYSTEM: Unlabored breathing , decreased breath sounds at bases HEART: S1 S2 regular rate and rhythm ,no loud murmurs ABDOMEN: Soft , no tenderness EXTREMITIES: Right foot is currently dressed no drainage on the dressing - Labs CBC & Chem 7: 05/15/23 05:53 05/18/23 10:21 Labs: Abnormal Lab Results - Last 24 Hours (Table) 05/17/23 05/17/23 05/17/23 Range/Units 12:09 17:30 21:10 POC Glucose (mg/dL) 192 H 174 H 165 H (70-110) mg/dL 05/18/23 Range/Units 06:24 POC Glucose (mg/dL) 122 H (70-110) mg/dL Microbiology - Last 24 Hours (Table) 05/16/23 17:06 Gram Stain - Preliminary Heel - Right Tissue Culture - Preliminary Gram Neg Bacilli 05/14/23 17:05 Blood Culture Gram Stain - Preliminary Blood Blood Culture - Preliminary 05/15/23 16:20 Gram Stain - Preliminary Heel - Right Tissue Culture - Preliminary Proteus vulgaris Strep agalactiae - (group b) 05/14/23 16:55 Blood Culture - Preliminary Blood Assessment and Plan (1) Foot osteomyelitis, right Current Visit: Yes Status: Acute Code(s): M86.9 - OSTEOMYELITIS, UNSPECIFIED SNOMED Code(s): 6276712287835276 (2) Type 2 diabetes mellitus with right diabetic foot ulcer Current Visit: Yes Status: Acute Code(s): E11.621 - TYPE 2 DIABETES MELLITUS WITH FOOT ULCER; L97.519 - NON-PRS CHRONIC ULCER OTH PRT RIGHT FOOT W UNSP SEVERITY SNOMED Code(s): 553000222 (3) Wound infection Current Visit: Yes Status: Acute Code(s): T14.8XXA - OTHER INJURY OF UNSPECIFIED BODY REGION, INITIAL ENCOUNTER; L08.9 - LOCAL INFECTION OF THE SKIN AND SUBCUTANEOUS TISSUE, UNSP SNOMED Code(s): 00971185 Plan: 1patient with extensive right diabetic foot infection with evidence of necrosis and foul-smelling drainage send significant deep wound concerning for osteomyelitis and will need to cover for the polymicrobial stacy usually associated with the diabetic foot infection 2-mildly elevated creatinine high risk of nephrotoxicity 3patient has been evaluated by vascular surgery and is status post debridement and deep culture was growing Streptococcus and Proteus that is resistant to Unasyn. 4patient continue with Zosyn will need PICC line for outpatient IV antibiotics Dictation was produced using [employer] dictation software. please excuse any grammatical, word or spelling errors. Time with Patient: Less than 30
--- NOTE | 2023-05-18 14:31 | P.PN ---
Progress Note - Text Progress Note Date: 05/18/23 Chief Complaint: Right foot wound This is a 52-year-old patient, follows with Dr. Rodríguez. Chronic stable medical condition include CHF EF less than 20%, COPD, diabetes mellitus type 2, hypertension, hyperlipidemia, obstructive sleep apnea, anxiety, AICD, lower extremity venous insufficiency. Patient had lower extremity wounds and has been followed by ID and Dr. Lugo from vascular. Patient has not been able to make a wound care center regularly because of transportation issues. Now presents with worsening wound on the right foot. Has had previous debridement of same. It is draining. Somewhat foul-smelling.. Patient had some chills. May 15: Patient had right foot wound debridement with Dr. Lugo. Currently in dressing. Patient received IV fluids from the ER. Stop the same. IV Lasix. Patient is on IV Unasyn and IV vancomycin per ID. Significant edema. May 16: IV Lasix 60 mg every 12. Unclear if he is making much urine. IV vancomycin was discontinued yesterday because of renal function. Some decrease in edema. Oral intake good. IV Unasyn. Being followed by ID. May 17: Making good urine. I's and O not well documented. Remains on IV Lasix 60:12. Still a significant edema. Breathing is stable. IV Unasyn. Creatinine 2.05. I discussed with Dr. Lugo from vascular. Patient might need a amputation down the road. Patient has several social issues going on. May 18: Patient placed on IV Bumex. Making urine. Significant edema present. Breathing much better. Creatinine going up. Being followed by cardiology and nephrology. Active Medications Acetaminophen (Acetaminophen Tab 325 Mg Tab) 650 mg PO Q6HR PRN PRN Reason: Mild Pain or Fever > 100.5 Albuterol Sulfate (Albuterol Nebulized 2.5 Mg/3 Ml) 2.5 mg INHALATION RT-QID PRN PRN Reason: Shortness Of Breath Last Admin: 05/17/23 08:56 Dose: 2.5 mg Alprazolam (Alprazolam 0.25 Mg Tab) 0.25 mg PO Q6HR PRN PRN Reason: Anxiety Aspirin (Aspirin 81 Mg) 81 mg PO DAILY [facility] Last Admin: 05/18/23 08:48 Dose: 81 mg Atorvastatin Calcium (Atorvastatin 40 Mg Tab) 40 mg PO DAILY [facility] Last Admin: 05/18/23 08:48 Dose: 40 mg Bumetanide (Bumetanide 0.25 Mg/Ml 4 Ml Vial) 2 mg IVP 0900,1600 [facility] Calcium Carbonate/Glycine (Calcium Carbonate 500 Mg Chewable) 1,000 mg PO Q4HR PRN PRN Reason: Dyspepsia Cyclobenzaprine HCl (Cyclobenzaprine 10 Mg Tab) 10 mg PO QID [facility] Last Admin: 05/18/23 14:00 Dose: 10 mg Dextrose/Water (Dextrose 50% Syringe 50 Ml) 25 ml IVP PER PROTOCOL PRN; Protocol PRN Reason: Hypoglycemia Dextrose/Water (Dextrose 50% Syringe 50 Ml) 50 ml IVP PER PROTOCOL PRN; Protocol PRN Reason: Hypoglycemia Duloxetine HCl (Duloxetine Hcl 60 Mg Capsule.Dr) 60 mg PO BID [facility] Last Admin: 05/18/23 08:48 Dose: 60 mg Piperacillin Sod/Tazobactam (Sod 3.375 gm/ Sodium Chloride) 100 mls @ 25 mls/hr IVPB Q8HR [facility]; Protocol Last Admin: 05/18/23 08:47 Dose: 25 mls/hr Insulin Aspart (Insulin Aspart (Novolog) 100 Unit/Ml Vial) 0 unit SQ ACHS [facility]; Protocol Last Admin: 05/18/23 12:20 Dose: Not Given Insulin Detemir (Insulin Detemir (Levemir) 100 Unit/Ml Syr) 30 unit SQ DAILY@0700 [facility] Last Admin: 05/18/23 08:47 Dose: 30 unit Lactulose (Lactulose 20 Gm/30 Ml Cup) 20 gm PO DAILY PRN PRN Reason: Constipation Last Admin: 05/18/23 12:20 Dose: 20 gm Melatonin (Melatonin 3 Mg Tablet) 3 mg PO HS PRN PRN Reason: Insomnia Metoprolol Succinate (Metoprolol Succinate (Er) 25 Mg Tab.Er.24h) 25 mg PO DAILY [facility] Last Admin: 05/18/23 08:48 Dose: 25 mg Morphine Sulfate (Morphine Sulfate 4 Mg/Ml Syringe) 4 mg IV Q4HR PRN PRN Reason: Severe Pain (Scale 7 to 10) Morphine Sulfate (Morphine Sulfate Ir 15 Mg Tablet) 30 mg PO QID [facility] Last Admin: 05/18/23 14:00 Dose: 30 mg Naloxone HCl (Naloxone 0.4 Mg/Ml 1 Ml Vial) 0.2 mg IV Q2M PRN PRN Reason: Opioid Reversal Nicotine (Nicotine 14mg/24hr Patch) 1 patch TRANSDERM DAILY [facility] Last Admin: 05/18/23 08:48 Dose: 1 patch Ondansetron HCl (Ondansetron 4 Mg/2 Ml Vial) 4 mg IVP Q8HR PRN PRN Reason: Nausea And Vomiting Last Admin: 05/18/23 12:20 Dose: 4 mg Silver Sulfadiazine (Silver Sulfadiazine 1% Cream 25 Gm Tube) 1 applic TOPICAL BID [facility]; Protocol Last Admin: 05/17/23 20:23 Dose: 1 applic Spironolactone (Spironolactone 25 Mg Tab) 12.5 mg PO DAILY [facility] Zolpidem Tartrate (Zolpidem 5 Mg Tab) 10 mg PO HS PRN PRN Reason: Insomnia Social history: Lives with his 20-year-old son. Disabled. 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 Smoking 2 packs a day for most of his life now down to half a pack a day. Stop drinking heavy alcohol about 20 years ago. Has done marijuana. Physical examination: VITAL SIGNS: 98.1, 77, 16, 93/72, 99% room air GENERAL: Reclining in bed, comfortable EYES: Pupils equal. Conjunctiva normal. HEENT: External appearance of nose and ears normal, oral cavity grossly normal. NECK: JVD unable to assess; masses not palpable. HEART: First and second heart sounds are normal; significant edema LUNGS: Respiratory rate normal; diminished breath sounds ABDOMEN: Soft, nontender, liver spleen not palpable, no masses palpable. PSYCH: Alert and oriented x3; mood and affect anxiousl. MUSCULOSKELETAL:No Clubbing/cyanosis;muscles-grossly intact DERMATOLOGICAL: Right foot wound-dressing. More details - nursing notes. INVESTIGATIONS, reviewed in the clinical context: May 18: Potassium 4.7 bicarb 21. 72 creatinine 2.64 Wound culture: Proteus vulgaris. Streptococcus agalactiae group B May 17: Creatinine 2.05 May 16: Creatinine 1.94 May 15: White count 15.4 hemoglobin 12.4 potassium 3.7 BUN 59 creatinine 1.55 05/14/2023: White count 15 hemoglobin 13 platelets 254 sodium 134 potassium 4.2 BUN 58 creatinine 1.23 lactic acid 2.6 Assessment and plan: -Acute right lower leg cellulitis, infected right heel diabetic ulcer with prior history of debridement. Has not been able to follow the wound care center because of transport. Wound swab for Gram stain and culture. Proteus vulgaris, Streptococcus agalactiae group B IV Unasyn Underwent debridement by Dr. Lugo Followed by ID and Dr. Lugo from vascular. -Sepsis from right leg wound. IV Unasyn Hold off IV fluids because of CHF. -Acute on chronic congestive heart failure nonischemic cardiomyopathy systolic dysfunction EF less than 20%: Slow to respond IV Bumex 2 mg every 12.. Aldactone 25 mg . Entresto-hold because of renal function AICD. - COPD current smoker Ventolin. -Diabetes mellitus type 2 chronically on insulin, uncontrolled with hyperglycemia and hypoglycemia. Lantus 30 units subcu daily . Diabetic diet. Accu-Cheks and sliding scale -Hyperlipidemia -Chronic kidney disease stage III from diabetic nephropathy and nephrosclerosis Baseline creatinine of 1.2 on May 14. -Acute kidney injury likely ATN from cardiorenal syndrome and possible vancomycin: Worsening Follow renal function. Entresto held Nephrology following -Essential hypertension Entresto-hold for now -Obstructive sleep apnea sometimes uses CPAP machine -Diabetic peripheral neuropathy -Anxiety Ativan when necessary -DJD Tylenol when necessary -Chronic nicotine dependence patient cigarette smoker Nicotine patch 14 -AICD -Lower extremity chronic venous insufficiency IV Bumex. . Wound care to continue. Renal function worsening.
[2023-05-18 17:45] LABS: Glucose,Whole Blood 87 mg/dL (70-110)
[2023-05-18] MEDS: BUMETANIDE 0.25 MG/ML 4 ML VIAL IVP SCH (18:24)
[2023-05-18 20:43] LABS: Glucose,Whole Blood 105 mg/dL (70-110)
[2023-05-19] MEDS: PIPERACILLIN-TAZOBACTAM 3.375 GM in SODIUM CHLORIDE 0.9% 100 ML IVPB SCH ×3 (00:27→17:34)
[2023-05-19 06:51] LABS: Glucose,Whole Blood 56 mg/dL (70-110)
[2023-05-19] MEDS: INSULIN ASPART (NovoLOG) 100 UNIT/ML VIAL SQ SCH ×4 (06:54→20:55)
[2023-05-19] MEDS: INSULIN DETEMIR (LEVEMIR) 100 UNIT/ML SYR SQ SCH (06:59)
[2023-05-19 07:11] LABS: Glucose,Whole Blood 63 mg/dL (70-110)
[2023-05-19 07:38] LABS: Glucose,Whole Blood 80 mg/dL (70-110)
[2023-05-19] MEDS: BUMETANIDE 0.25 MG/ML 4 ML VIAL IVP SCH ×2 (10:00→18:07)
[2023-05-19] MEDS: LACTULOSE 20 GM/30 ML CUP PO PRN (10:14)
[2023-05-19] MEDS: MORPHINE SULFATE IR 15 MG TABLET PO SCH ×4 (10:14→22:11)
[2023-05-19] MEDS: CYCLOBENZAPRINE 10 MG TAB PO SCH ×4 (10:15→22:10)
[2023-05-19] MEDS: DULoxetine HCL 60 MG CAPSULE.DR PO SCH ×2 (10:15→22:10)
[2023-05-19] MEDS: ATORVASTATIN 40 MG TAB PO SCH (10:15)
[2023-05-19] MEDS: SPIRONOLACTONE 25 MG TAB PO SCH (10:15)
[2023-05-19] MEDS: ASPIRIN 81 MG PO SCH (10:15)
[2023-05-19] MEDS: METOPROLOL SUCCINATE (ER) 25 MG TAB.ER.24H PO SCH (10:15)
[2023-05-19] MEDS: NICOTINE 14MG/24HR PATCH TRANSDERM SCH (10:30)
[2023-05-19 11:39] LABS: Glucose,Whole Blood 109 mg/dL (70-110)
--- NOTE | 2023-05-19 12:29 | P.PN ---
Subjective Patient is seen for f/u for ANGY. Serum creatinine increased to 2.6 mg/dL yesterday. Diuretics switched to IV Bumex yesterday. Urine output remains about the same and it is not accurately charted. Weight is up by about 0.5 kg. Patient continues with significant edema. BP remains low. Maintained on midodrine. Objective - Vital Signs Vital signs: Vital Signs Temp 96 F L 05/19/23 08:12 Pulse 78 05/19/23 08:12 Resp 20 05/19/23 08:12 BP 103/64 05/19/23 08:12 Pulse Ox 98 05/19/23 08:12 FiO2 Intake & Output 05/18/23 05/19/23 05/19/23 18:59 06:59 18:59 Intake Total 300 Output Total 277 100 Balance -277 200 Weight 115.5 kg Intake: IV 200 0.9 KVO 100 Piperacillin-Tazobactam 3 100 .375 gm In Sodium Chloride 0.9% 100 ml @ 25 mls/hr IVPB Q8HR [facility] Rx# :[id number] Oral 100 Output: Urine 250 100 Post Void Residual 27 Other: Voiding Method Toilet Urinal - Exam Awake, comfortable Lungs show decreased breath sounds at bases CVS S1 and S2 Abdomen is soft, non tender. Ext. 3+ edema bilaterally, right leg is wrapped, right worse than left [employer] exam grossly intact - Labs CBC & Chem 7: 05/15/23 05:53 05/18/23 10:21 Labs: Abnormal Lab Results - Last 24 Hours (Table) 05/19/23 05/19/23 Range/Units 06:49 07:10 POC Glucose (mg/dL) 56 L 63 L (70-110) mg/dL Microbiology - Last 24 Hours (Table) 05/15/23 16:20 Anaerobic Culture - Final Heel - Right Anaerobic Gm Negative Bacilli 05/15/23 16:20 Gram Stain - Preliminary Heel - Right Tissue Culture - Preliminary Proteus vulgaris Strep agalactiae - (group b) 05/16/23 17:06 Gram Stain - Preliminary Heel - Right Tissue Culture - Preliminary Gram Neg Bacilli Assessment and Plan Assessment: 1. Acute kidney injury secondary to ATN secondary to hypotension and car diorenal syndrome. Creatinine 1.23 on admission and is up to 2.6 . Discussed with cardiology. Proceed with dobutamine infusion. Continue with the Bumex. We may need to switch to Bumex drip depending on the response to diuresis. 2. Acute on chronic systolic CHF with ejection fraction of less than 20% with moderate to severe mitral regurgitation, moderate tricuspid regurgitation and severe pulmonary hypertension noted on echocardiogram done in June 2022. 3. Volume overload. 4. Right foot wound being followed by vascular surgery and infectious disease. Status post debridement. On antibiotics. 5. Diabetes mellitus. Plan: Proceed with dobutamine infusion. Discussed with cardiology May need to switch to Bumex drip depending on response Continue with midodrine. Repeat labs today and monitor potassium given recent initiation of Aldactone although it is a low dose, in the setting of worsening renal function Repeat labs in am.
[2023-05-19 13:19] LABS: African American GFR (CKD) 27 (>60 ml/min/1.73 sqM); Anion Gap 12 mmol/L; Blood Urea Nitrogen 78 mg/dL (9-20); Calcium 8.5 mg/dL (8.4-10.2); Carbon Dioxide 25 mmol/L (22-30); Chloride 97 mmol/L (98-107); Glucose 129 mg/dL (74-99); Non-African American GFR(CKD) 24 (>60 ml/min/1.73 sqM); Potassium 4.8 mmol/L (3.5-5.1); Sodium 134 mmol/L (137-145)
--- NOTE | 2023-05-19 14:14 | P.PN ---
Progress Note - Text Progress Note Date: 05/19/23 Chief Complaint: Right foot wound This is a 52-year-old patient, follows with Dr. Rodríguez. Chronic stable medical condition include CHF EF less than 20%, COPD, diabetes mellitus type 2, hypertension, hyperlipidemia, obstructive sleep apnea, anxiety, AICD, lower extremity venous insufficiency. Patient had lower extremity wounds and has been followed by ID and Dr. Lugo from vascular. Patient has not been able to make a wound care center regularly because of transportation issues. Now presents with worsening wound on the right foot. Has had previous debridement of same. It is draining. Somewhat foul-smelling.. Patient had some chills. May 15: Patient had right foot wound debridement with Dr. Lugo. Currently in dressing. Patient received IV fluids from the ER. Stop the same. IV Lasix. Patient is on IV Unasyn and IV vancomycin per ID. Significant edema. May 16: IV Lasix 60 mg every 12. Unclear if he is making much urine. IV vancomycin was discontinued yesterday because of renal function. Some decrease in edema. Oral intake good. IV Unasyn. Being followed by ID. May 17: Making good urine. I's and O not well documented. Remains on IV Lasix 60:12. Still a significant edema. Breathing is stable. IV Unasyn. Creatinine 2.05. I discussed with Dr. Lugo from vascular. Patient might need a amputation down the road. Patient has several social issues going on. May 18: Patient placed on IV Bumex. Making urine. Significant edema present. Breathing much better. Creatinine going up. Being followed by cardiology and nephrology. May 19: Today remains on IV Bumex 2 mg every 12. We started on dobutamine drip and both the cardiology selective floor. IV Zosyn to continue. Tolerating diet well. Breathing stable. Lower extremity edema. Creatinine worsening Active Medications Acetaminophen (Acetaminophen Tab 325 Mg Tab) 650 mg PO Q6HR PRN PRN Reason: Mild Pain or Fever > 100.5 Albuterol Sulfate (Albuterol Nebulized 2.5 Mg/3 Ml) 2.5 mg INHALATION RT-QID PRN PRN Reason: Shortness Of Breath Last Admin: 05/17/23 08:56 Dose: 2.5 mg Alprazolam (Alprazolam 0.25 Mg Tab) 0.25 mg PO Q6HR PRN PRN Reason: Anxiety Aspirin (Aspirin 81 Mg) 81 mg PO DAILY [facility] Last Admin: 05/19/23 10:15 Dose: 81 mg Atorvastatin Calcium (Atorvastatin 40 Mg Tab) 40 mg PO DAILY [facility] Last Admin: 05/19/23 10:15 Dose: 40 mg Bumetanide (Bumetanide 0.25 Mg/Ml 4 Ml Vial) 2 mg IVP 0900,1600 [facility] Last Admin: 05/19/23 10:00 Dose: 2 mg Calcium Carbonate/Glycine (Calcium Carbonate 500 Mg Chewable) 1,000 mg PO Q4HR PRN PRN Reason: Dyspepsia Cyclobenzaprine HCl (Cyclobenzaprine 10 Mg Tab) 10 mg PO QID [facility] Last Admin: 05/19/23 10:15 Dose: 10 mg Dextrose/Water (Dextrose 50% Syringe 50 Ml) 25 ml IVP PER PROTOCOL PRN; Protocol PRN Reason: Hypoglycemia Dextrose/Water (Dextrose 50% Syringe 50 Ml) 50 ml IVP PER PROTOCOL PRN; Protocol PRN Reason: Hypoglycemia Duloxetine HCl (Duloxetine Hcl 60 Mg Capsule.Dr) 60 mg PO BID [facility] Last Admin: 05/19/23 10:15 Dose: 60 mg Piperacillin Sod/Tazobactam (Sod 3.375 gm/ Sodium Chloride) 100 mls @ 25 mls/hr IVPB Q8HR [facility]; Protocol Last Admin: 05/19/23 10:13 Dose: 25 mls/hr Dobutamine HCl/Dextrose 500 mg (/ IV Solution) 250 mls @ 8.663 mls/hr IV .Q24H [facility] Insulin Aspart (Insulin Aspart (Novolog) 100 Unit/Ml Vial) 0 unit SQ ACHS [facility]; Protocol Last Admin: 05/19/23 11:39 Dose: Not Given Insulin Detemir (Insulin Detemir (Levemir) 100 Unit/Ml Syr) 30 unit SQ DAILY@0700 [facility] Last Admin: 05/19/23 06:59 Dose: Not Given Lactulose (Lactulose 20 Gm/30 Ml Cup) 20 gm PO DAILY PRN PRN Reason: Constipation Last Admin: 05/19/23 10:14 Dose: 20 gm Melatonin (Melatonin 3 Mg Tablet) 3 mg PO HS PRN PRN Reason: Insomnia Metoprolol Succinate (Metoprolol Succinate (Er) 25 Mg Tab.Er.24h) 25 mg PO DAILY [facility] Last Admin: 05/19/23 10:15 Dose: 25 mg Morphine Sulfate (Morphine Sulfate 4 Mg/Ml Syringe) 4 mg IV Q4HR PRN PRN Reason: Severe Pain (Scale 7 to 10) Morphine Sulfate (Morphine Sulfate Ir 15 Mg Tablet) 30 mg PO QID [facility] Last Admin: 05/19/23 10:14 Dose: 30 mg Naloxone HCl (Naloxone 0.4 Mg/Ml 1 Ml Vial) 0.2 mg IV Q2M PRN PRN Reason: Opioid Reversal Nicotine (Nicotine 14mg/24hr Patch) 1 patch TRANSDERM DAILY [facility] Last Admin: 05/19/23 10:30 Dose: 1 patch Ondansetron HCl (Ondansetron 4 Mg/2 Ml Vial) 4 mg IVP Q8HR PRN PRN Reason: Nausea And Vomiting Last Admin: 05/18/23 12:20 Dose: 4 mg Silver Sulfadiazine (Silver Sulfadiazine 1% Cream 25 Gm Tube) 1 applic TOPICAL BID [facility]; Protocol Last Admin: 05/18/23 20:55 Dose: 1 applic Spironolactone (Spironolactone 25 Mg Tab) 12.5 mg PO DAILY [facility] Last Admin: 05/19/23 10:15 Dose: 12.5 mg Zolpidem Tartrate (Zolpidem 5 Mg Tab) 10 mg PO HS PRN PRN Reason: Insomnia Social history: Lives with his 20-year-old son. Disabled. 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 Smoking 2 packs a day for most of his life now down to half a pack a day. Stop drinking heavy alcohol about 20 years ago. Has done marijuana. Physical examination: VITAL SIGNS: 97.4, 75, 18, 91/67, 98% room air GENERAL: Sitting at edge of the bed, comfortable EYES: Pupils equal. Conjunctiva normal. HEENT: External appearance of nose and ears normal, oral cavity grossly normal. NECK: JVD unable to assess; masses not palpable. HEART: First and second heart sounds are normal; significant edema LUNGS: Respiratory rate normal; diminished breath sounds ABDOMEN: Soft, nontender, liver spleen not palpable, no masses palpable. PSYCH: Alert and oriented x3; mood and affect anxiousl. MUSCULOSKELETAL:No Clubbing/cyanosis;muscles-grossly intact DERMATOLOGICAL: Right foot wound-dressing. More details - nursing notes. INVESTIGATIONS, reviewed in the clinical context: May 19: Potassium 4.8 BUN 78 creatinine 2.91 May 18: Potassium 4.7 bicarb 21. 72 creatinine 2.64 Wound culture: Proteus vulgaris. Streptococcus agalactiae group B May 17: Creatinine 2.05 May 16: Creatinine 1.94 May 15: White count 15.4 hemoglobin 12.4 potassium 3.7 BUN 59 creatinine 1.55 05/14/2023: White count 15 hemoglobin 13 platelets 254 sodium 134 potassium 4.2 BUN 58 creatinine 1.23 lactic acid 2.6 Assessment and plan: -Acute right lower leg cellulitis, infected right heel diabetic ulcer with prior history of debridement. Has not been able to follow the wound care center because of transport. Wound swab for Gram stain and culture. Proteus vulgaris, Streptococcus agalactiae group B IV Unasyn Underwent debridement by Dr. Lugo Followed by ID and Dr. Lugo from vascular. -Sepsis from right leg wound. IV Unasyn Hold off IV fluids because of CHF. -Acute on chronic congestive heart failure nonischemic cardiomyopathy systolic dysfunction EF less than 20%: Slow to respond IV Bumex 2 mg every 12.. Aldactone 25 mg . Entresto-hold because of renal function Being started on dobutamine drip. AICD. - COPD current smoker Ventolin. -Diabetes mellitus type 2 chronically on insulin, uncontrolled with hyperglycemia and hypoglycemia. Decrease Lantus 20 units subcu daily . Diabetic diet. Accu-Cheks and sliding scale -Hyperlipidemia -Chronic kidney disease stage III from diabetic nephropathy and nephrosclerosis Baseline creatinine of 1.2 on May 14. -Acute kidney injury likely ATN from cardiorenal syndrome and possible vancomycin: Worsening Follow renal function. Entresto held Nephrology following -Essential hypertension Entresto-hold for now -Obstructive sleep apnea sometimes uses CPAP machine -Diabetic peripheral neuropathy -Anxiety Ativan when necessary -DJD Tylenol when necessary -Chronic nicotine dependence patient cigarette smoker Nicotine patch 14 -AICD -Lower extremity chronic venous insufficiency IV Bumex. . Dobutamine drip in added. Cutback Levemir to 20 units. Patient being moved to [facility] cardiology telemetry floor.
--- NOTE | 2023-05-19 14:38 | XR ---
EXAMINATION TYPE: XR chest 1V portable DATE OF EXAM: 05/19/2023 COMPARISON: 11/19/2022 HISTORY: CHF TECHNIQUE: Single frontal view of the chest is obtained. FINDINGS: There is marked cardiomegaly and a single lead cardiac pacemaker. There is no airspace consolidation or interstitial density. The pulmonary vasculature does not appear congested. There is no pneumothorax or pleural effusion. The osseous structures are intact. IMPRESSION: No acute process.
--- NOTE | 2023-05-19 15:23 | P.PN ---
Subjective Progress Note Date: 05/19/23 Principal diagnosis: R diabetic foot/osteomyelitis Patient is a 52-year-old male with a past medical history significant for right heel diabetic foot infection with an episode of osteomyelitis. Patient completed his antibiotic therapy now presenting back to the hospital with worsening wound, the patient did have a surgical debridement of the right heel wound completed on 01/14/2023 On today's evaluation that is 05/19/2023, the patient remains to be afebrile, the patient is breathing comfortably on room air without the need for supplemental oxygen , the patient denies chest pain or cough, patient denies nausea/vomiting or diarrhea and denies any abdominal pain, the patient denies pain to the right foot wound area. Patient did have a white count of 15.4 as of 05/15/2023 creatinine is is 2.91, local currently growing Proteus and Streptococcus agalactiae Objective - Vital Signs Vital signs: Vital Signs Temp 97.4 F L 05/19/23 13:48 Pulse 75 05/19/23 13:48 Resp 18 05/19/23 13:48 BP 91/67 05/19/23 13:48 Pulse Ox 98 05/19/23 13:48 FiO2 Intake & Output 05/18/23 05/19/23 05/19/23 18:59 06:59 18:59 Intake Total 300 0 Output Total 277 100 Balance -277 200 0 Weight 115.5 kg Intake: IV 200 0.9 KVO 100 Piperacillin-Tazobactam 3 100 .375 gm In Sodium Chloride 0.9% 100 ml @ 25 mls/hr IVPB Q8HR [facility] Rx# :[id number] Oral 100 0 Output: Urine 250 100 Post Void Residual 27 Other: Voiding Method Toilet Urinal # Voids 3 - Exam GENERAL DESCRIPTION: Middle-age male lying in bed in no distress RESPIRATORY SYSTEM: Unlabored breathing , decreased breath sounds at bases HEART: S1 S2 regular rate and rhythm ,no loud murmurs ABDOMEN: Soft , no tenderness EXTREMITIES: Right foot is currently dressed no drainage on the dressing - Labs CBC & Chem 7: 05/15/23 05:53 05/19/23 12:55 Labs: Abnormal Lab Results - Last 24 Hours (Table) 05/19/23 05/19/23 05/19/23 Range/Units 06:49 07:10 12:55 Sodium 134 L (137-145) mmol/L Chloride 97 L (98-107) mmol/L BUN 78 H (9-20) mg/dL Creatinine 2.91 H (0.66-1.25) mg/dL Glucose 129 H (74-99) mg/dL POC Glucose (mg/dL) 56 L 63 L (70-110) mg/dL Microbiology - Last 24 Hours (Table) 05/14/23 17:05 Blood Culture Gram Stain - Preliminary Blood Blood Culture - Preliminary Corynebacterium species 05/15/23 16:20 Anaerobic Culture - Final Heel - Right Anaerobic Gm Negative Bacilli 05/15/23 16:20 Gram Stain - Preliminary Heel - Right Tissue Culture - Preliminary Proteus vulgaris Strep agalactiae - (group b) Assessment and Plan (1) Foot osteomyelitis, right Current Visit: Yes Status: Acute Code(s): M86.9 - OSTEOMYELITIS, UNSPECIFIED SNOMED Code(s): 7369088359503240 (2) Type 2 diabetes mellitus with right diabetic foot ulcer Current Visit: Yes Status: Acute Code(s): E11.621 - TYPE 2 DIABETES MELLITUS WITH FOOT ULCER; L97.519 - NON-PRS CHRONIC ULCER OTH PRT RIGHT FOOT W UNSP SEVERITY SNOMED Code(s): 042834373 (3) Wound infection Current Visit: Yes Status: Acute Code(s): T14.8XXA - OTHER INJURY OF UNSPECIFIED BODY REGION, INITIAL ENCOUNTER; L08.9 - LOCAL INFECTION OF THE SKIN AND SUBCUTANEOUS TISSUE, UNSP SNOMED Code(s): 93251040 Plan: 1patient with extensive right diabetic foot infection with evidence of necrosis and foul-smelling drainage send significant deep wound concerning for osteomyelitis and will need to cover for the polymicrobial stacy usually associated with the diabetic foot infection 2Positive blood culture with corynebacterium likely skin contamination 3patient has been evaluated by vascular surgery and is status post debridement and deep culture was growing Streptococcus and Proteus that is resistant to Unasyn. 4patient continue with Zosyn will need PICC line for outpatient IV antibiotics once cleared by nephrology Dictation was produced using [employer] dictation software. please excuse any grammatical, word or spelling errors. Time with Patient: Less than 30
--- NOTE | 2023-05-19 15:40 | P.PN ---
Subjective Progress Note Date: 05/19/23 Progress note: Patient's creatinine has continued to decline on diuretic therapy. His EF is 10-15%. Creatinine 1.5-on admission, with diuretic therapy creatinine has increased to 2.91. I will start him on low-dose dobutamine running at 5 mcg/h. Transfer patient to [address] [place] [address]. BP 91/67, Urine output was not documented accurately History of present illness: This is a 52-year-old male patient of Dr. Yared Abbasi with past medical history of nonischemic cardiomyopathy, hypertension, dyslipidemia, status post AICD, diabetes. We have been asked to evaluate the patient for run of V. tach. Patient has presented to the hospital due to right heel diabetic foot ulcer with osteomyelitis status post debridement. Patient had a run of nonsustained ventricular tachycardia of 13 beats. He does have AICD as noted above. Patient denies having any chest pain. Noted that patient has now been resumed on Entresto due to hypotension. Patient is currently on IV Lasix 60 mg every 12 hours. Sodium 136, potassium 4.3, BUN 67 creatinine 2.05. WBC 15.4, hemoglobin 12.4. Home cardiac medications: Lasix 80 mg twice daily, Entresto 24 mg26 mg twice daily, Aldactone 25 mg daily [address] [facility] Echocardiogram 06/2022 revealed EF less than 20% with global hypokinesia. Review Of Systems: At the time of my evaluation: Constitutional: No fever, no chills. No weakness, fatigue or lethargy. EENT: No headache. No dizziness. Lungs: No shortness of breath, cough, no sputum production. No wheezing. Cardiovascular: No chest pain, no lower extremity edema. No palpitations. No paroxysmal nocturnal dyspnea. No orthopnea. No lightheadedness or dizziness. No syncopal episodes. Abdominal: No abdominal pain. No nausea, vomiting. No diarrhea. Musculoskeletal: No myalgias. No muscle weakness, no frequent falls. Integumentary: Foot wounds. No rash. No unusual bruising. Neurologic: No aphasia. No facial droop. No change in mentation. No head injury. No headache. Physical examination: Gen: This is a 52-year-old male. He is resting bed and appears comfortable and in no acute distress. VS: reviewed HEENT: Head is atraumatic, normocephalic. Pupils equal, round. Sclerae is anicteric. NECK: Supple. No JVD. . LUNGS: Clear to auscultation. No wheezes or rhonchi. No intercostal retractions. HEART: Regular rate and rhythm. No murmur. ABDOMEN: Soft No tenderness. EXTREMITIES: Dressing on the right foot. No pedal edema. No calf tenderness. NEUROLOGICAL: Patient is awake, alert and oriented x3. Assessment: Cardiogenic shock cardiorenal syndrome Acute systolic heart failure exacerbation Nonsustained ventricular tachycardia, expected Diabetic foot ulcer Nonischemic cardiomyopathy EF 20%, status post AICD Hypertension Dyslipidemia Type II Diabetes Smoker, No compliance Plan: Start patient on dobutamine drip 5 mcg/hr Bumex 2 mg IV twice a day. Aldactone 12.5 mg daily Stop Metoprolol due to cardiorenal Follow kidney function tomorrow, once kidney function improves, Obtain bladder scans look for any obstructive uropathy especially due to high BUN/creatinine ratio. Do not give midodrine until SBP is less than 80 and mean arterial pressure is less than 60 mmHg Poor prognosis. Objective - Vital Signs Vital signs: Vital Signs Temp 97.4 F L 05/19/23 13:48 Pulse 75 05/19/23 13:48 Resp 18 05/19/23 13:48 BP 91/67 05/19/23 13:48 Pulse Ox 98 05/19/23 13:48 FiO2 Intake & Output 05/18/23 05/19/23 05/19/23 18:59 06:59 18:59 Intake Total 300 0 Output Total 277 100 Balance -277 200 0 Weight 115.5 kg Intake: IV 200 0.9 KVO 100 Piperacillin-Tazobactam 3 100 .375 gm In Sodium Chloride 0.9% 100 ml @ 25 mls/hr IVPB Q8HR [facility]S [facility]CLUDE 234 BEDS AT [facility] Rx# :[id number] Oral 100 0 Output: Urine 250 100 Post Void Residual 27 Other: Voiding Method Toilet Urinal # Voids 3 - Labs CBC & Chem 7: 05/15/23 05:53 05/19/23 12:55 Labs: Abnormal Lab Results - Last 24 Hours (Table) 05/19/23 05/19/23 05/19/23 Range/Units 06:49 07:10 12:55 Sodium 134 L (137-145) mmol/L Chloride 97 L (98-107) mmol/L BUN 78 H (9-20) mg/dL Creatinine 2.91 H (0.66-1.25) mg/dL Glucose 129 H (74-99) mg/dL POC Glucose (mg/dL) 56 L 63 L (70-110) mg/dL Microbiology - Last 24 Hours (Table) 05/14/23 17:05 Blood Culture Gram Stain - Preliminary Blood Blood Culture - Preliminary Corynebacterium species 05/15/23 16:20 Anaerobic Culture - Final Heel - Right Anaerobic Gm Negative Bacilli 05/15/23 16:20 Gram Stain - Preliminary Heel - Right Tissue Culture - Preliminary Proteus vulgaris Strep agalactiae - (group b)
[2023-05-19] MEDS: DOBUTamine DRIP 500 MG in DEXTROSE/WATER 1 250ML.BAG IV SCH (17:00)
[2023-05-19 17:01] LABS: Glucose,Whole Blood 92 mg/dL (70-110)
[2023-05-19 20:50] LABS: Glucose,Whole Blood 126 mg/dL (70-110)
[2023-05-20] MEDS: PIPERACILLIN-TAZOBACTAM 3.375 GM in SODIUM CHLORIDE 0.9% 100 ML IVPB SCH ×3 (00:06→15:53)
[2023-05-20 06:22] LABS: Glucose,Whole Blood 107 mg/dL (70-110)
[2023-05-20] MEDS: INSULIN ASPART (NovoLOG) 100 UNIT/ML VIAL SQ SCH ×4 (06:31→20:39)
[2023-05-20] MEDS: INSULIN DETEMIR (LEVEMIR) 100 UNIT/ML SYR SQ SCH (06:57)
[2023-05-20] MEDS: SPIRONOLACTONE 25 MG TAB PO SCH (09:02)
[2023-05-20] MEDS: MORPHINE SULFATE IR 15 MG TABLET PO SCH ×2 (09:02→11:28)
[2023-05-20] MEDS: CYCLOBENZAPRINE 10 MG TAB PO SCH ×4 (09:03→20:39)
[2023-05-20] MEDS: ASPIRIN 81 MG PO SCH (09:03)
[2023-05-20] MEDS: ATORVASTATIN 40 MG TAB PO SCH (09:03)
[2023-05-20] MEDS: BUMETANIDE 0.25 MG/ML 4 ML VIAL IVP SCH ×2 (09:03→20:39)
[2023-05-20] MEDS: NICOTINE 14MG/24HR PATCH TRANSDERM SCH (09:03)
[2023-05-20] MEDS: METOPROLOL SUCCINATE (ER) 25 MG TAB.ER.24H PO SCH (09:03)
[2023-05-20] MEDS: DULoxetine HCL 60 MG CAPSULE.DR PO SCH ×2 (09:03→20:39)
--- NOTE | 2023-05-20 09:41 | CDI ---
Documentation Clarification Form Date: 05/20/2023 09:21:24 AM From: Tamkio Tucker RN CCDS Phone: [phone] Admit Date: 05/14/2023 10:36:00 PM Patient Name: Ezequiel Haynes Visit Number: [id number] Discharge Date: ATTENTION: The Clinical Documentation Specialists (CDI) and [facility] Coding Staff appreciate your assistance in clarifying documentation. Please respond to the clarification below the line at the bottom and electronically sign. The CDI & [facility] Coding staff will review the response and follow-up if needed. Please note: Queries are made part of the Legal Health Record. If you have any questions, please contact the author of this message via ITS. Dr. Martin Gotti debridement is documented 05/16, Procedure note. Additional clarification regarding the procedure is requested. History/Risk Factors: 52-year-old male presented with a worsening right foot diabetic wound that is draining and foul smelling. The patient has not been able to make it to the wound care center regularly. Medical history: Debridement of right foot wound, DM2, CKD3, CHF and COPD. 05/14, H&P. Clinical Indicators: Procedure performed: Debridement of the wound, right foot, ankle down to the calcaneus bone. Infected wound right heel 6 x 7 x 1cm. Debridement was done of the right heel down to subcutaneous, fat and right heel. All the devitalized tissue was removed down to the bone which was sent for deep culture. Treatment: Debridement of right foot wound to the bone. Please clarify the type of procedure performed: [ ] Excisional debridement (the removal of necrotic, devitalized tissue or slough by means of cutting away of tissue) [ ] Non-excisional debridement (the removal of necrotic, devitalized tissue or slough by means of flushing, brushing, or washing. (Irrigation) [ ] Other; please specify [ ] Unable to determine [ ] Instrument used: [ ] Other; please specify [ ] Unable to determine [ ] Nature of the tissue [ ] Other; please specify [ ] Unable to determine Five elements required for accurate and compliant documentation of a debridement: Technique used (e.g., excisional, excised, cutting, brushing, jet lavage etc.) Instrument(s) used (e.g., scalpel, curette, etc.) Nature of the tissue removed (e.g., necrotic, devitalized tissues, non-viable tissue, etc.) Appearance and size of the wound (e.g., down to fresh bleeding tissue, 7cm x 10cm, etc.) Depth of the debridement* (e.g., skin, subcutaneous tissue, fascia, muscle, bone, etc.) (Template Last Revised: September 2020) AUDELIA
--- NOTE | 2023-05-20 10:31 | PN ---
PROGRESS NOTE SUBJECTIVE: This is a 52-year-old gentleman. The patient has a chronic wound right heel, yesterday came to the OR. We did the debridement down to the calcaneus bone. All the devitalized tissue was removed. The patient is on IV antibiotic. Reapply Medihoney gel, which should be continue on daily basis. Prognosis is guarded. MMODL / IJN: [id number] /
[2023-05-20 11:21] LABS: Glucose,Whole Blood 119 mg/dL (70-110)
--- NOTE | 2023-05-20 11:46 | P.PN ---
Subjective Patient is seen for f/u for ANGY. Serum creatinine increased to 2.9 mg/dL yesterday. Started on dobutamine drip yesterday due to worsening renal function and significant volume overload. Patient continues with significant edema. BP remains low. Maintained on midodrine. Patient appears lethargic today. He does wake up and onset questions but doses back to sleep. He is maintained on scheduled dose of of morphine. Urine output not charted I accurately as patient is incontinent Objective - Vital Signs Vital signs: Vital Signs Temp 97.5 F L 05/20/23 08:00 Pulse 79 05/20/23 08:00 Resp 14 05/20/23 08:00 BP 91/57 05/20/23 08:00 Pulse Ox 96 05/20/23 08:00 FiO2 Intake & Output 05/19/23 05/20/23 05/20/23 18:59 06:59 18:59 Intake Total 120 Output Total 500 Balance -380 Weight 111.3 kg Intake: IV 120 Invasive Line 2 10 Invasive Line 3 10 Piperacillin-Tazobactam 3 100 .375 gm In Sodium Chloride 0.9% 100 ml @ 25 mls/hr IVPB Q8HR [facility] Rx# :[id number] Oral 0 Output: Urine 500 Other: Voiding Method Toilet Toilet Urinal Urinal # Voids 1 - Exam Awake, comfortable. Patient appears lethargic today and dozes off to sleep Lungs show decreased breath sounds at bases CVS S1 and S2 Abdomen is soft, non tender. Ext. 3+ edema bilaterally, right leg is wrapped, right worse than left [employer] exam grossly intact - Labs CBC & Chem 7: 05/15/23 05:53 05/19/23 12:55 Labs: Abnormal Lab Results - Last 24 Hours (Table) 05/19/23 05/19/23 05/20/23 Range/Units 12:55 20:48 11:19 Sodium 134 L (137-145) mmol/L Chloride 97 L (98-107) mmol/L BUN 78 H (9-20) mg/dL Creatinine 2.91 H (0.66-1.25) mg/dL Glucose 129 H (74-99) mg/dL POC Glucose (mg/dL) 126 H 119 H (70-110) mg/dL Microbiology - Last 24 Hours (Table) 05/16/23 17:06 Anaerobic Culture - Final Heel - Right Anaerobic Gm Negative Bacilli 05/14/23 16:55 Blood Culture - Final Blood 05/16/23 17:06 Gram Stain - Preliminary Heel - Right Tissue Culture - Preliminary Gram Neg Bacilli 05/14/23 17:05 Blood Culture Gram Stain - Preliminary Blood Blood Culture - Preliminary Corynebacterium species Assessment and Plan Assessment: 1. Acute kidney injury secondary to ATN secondary to hypotension and cardiorenal syndrome. Creatinine 1.23 on admission and is up to 2.9. Started on dobutamine drip. Continue with the Bumex. We may need to switch to Bumex drip depending on the response to diuresis. 2. Acute on chronic systolic CHF with ejection fraction of less than 20% with moderate to severe mitral regurgitation, moderate tricuspid regurgitation and severe pulmonary hypertension noted on echocardiogram done in June 2022. 3. Volume overload. 4. Right foot wound being followed by vascular surgery and infectious disease. Status post debridement. On antibiotics. 5. Diabetes mellitus. 6. Lethargy with decreased mentation. Decrease morphine to when necessary Plan: Continue with dobutamine infusion May need to switch to Bumex drip depending on response. Continue with Zaroxolyn and Aldactone Decrease morphine to when necessary dosing. Continue with midodrine. R
[2023-05-20] MEDS: MIDODRINE 5 MG TAB PO SCH ×2 (11:55→17:05)
[2023-05-20] MEDS: ISOSORBIDE DINITRATE 10 MG TAB PO SCH ×3 (11:59→20:27)
[2023-05-20] MEDS: hydrALAZINE HCL 10 MG TAB PO SCH ×3 (11:59→20:27)
[2023-05-20 12:32] LABS: African American GFR (CKD) 29 (>60 ml/min/1.73 sqM); Albumin 3.2 g/dL (3.5-5.0); Anion Gap 15 mmol/L; Blood Urea Nitrogen 80 mg/dL (9-20); Calcium 8.6 mg/dL (8.4-10.2); Carbon Dioxide 22 mmol/L (22-30); Chloride 98 mmol/L (98-107); Glucose 102 mg/dL (74-99); Non-African American GFR(CKD) 25 (>60 ml/min/1.73 sqM); Phosphorus 5.3 mg/dL (2.5-4.5); Potassium 4.7 mmol/L (3.5-5.1); Sodium 135 mmol/L (137-145)
--- NOTE | 2023-05-20 14:03 | P.PN ---
Subjective Progress Note Date: 05/20/23 History of present illness: This is a 52-year-old male patient of Dr. Yared Abbasi with past medical history of nonischemic cardiomyopathy, hypertension, dyslipidemia, status post AICD, diabetes. We have been asked to evaluate the patient for run of V. tach. Patient has presented to the hospital due to right heel diabetic foot ulcer with osteomyelitis status post debridement. Patient had a run of nonsustained ventricular tachycardia of 13 beats. He does have AICD as noted above. Patient denies having any chest pain. Noted that patient has now been resumed on Entresto due to hypotension. Patient is currently on IV Lasix 60 mg every 12 hours. Sodium 136, potassium 4.3, BUN 67 creatinine 2.05. WBC 15.4, hemoglobin 12.4. Home cardiac medications: Lasix 80 mg twice daily, Entresto 24 mg26 mg twice daily, Aldactone 25 mg daily [address] [facility] Echocardiogram 06/2022 revealed EF less than 20% with global hypokinesia. Progress Note Date: 05/19/23 Progress note: Patient's creatinine has continued to decline on diuretic therapy. His EF is 10-15%. Creatinine 1.5-on admission, with diuretic therapy creatinine has increased to 2.91. I will start him on low-dose dobutamine running at 5 mcg/h. Transfer patient to [address] [place], [place] [address]etry. BP 91/67, Urine output was not documented accurately 05/20 Patient is seen today on the cardiac stepdown unit. Patient was started on dobutamine drip yesterday he states is urinating about the same amount yesterday yesterday. He continues to have edema up into the thigh area and also having acute kidney injury. In general he feels he is okay. No significant pain in his foot. Blood pressure 91/57, heart rate in the 70s, afebrile, pulse ox 96% on room air. BUN 80 creatinine 2.74. Nephrology is switching patient to Bumex drip. Physical examination: Gen: This is a 52-year-old male. He is resting bed and appears comfortable and in no acute distress. VS: reviewed HEENT: Head is atraumatic, normocephalic. Pupils equal, round. Sclerae is anicteric. NECK: Supple. No JVD. LUNGS: Clear to auscultation. No wheezes or rhonchi. No intercostal retractions. HEART: Regular rate and rhythm. No murmur. ABDOMEN: Soft No tenderness. EXTREMITIES: Dressing on the right foot. No pedal edema. No calf tenderness. NEUROLOGICAL: Patient is awake, alert and oriented x3. Assessment: Cardiogenic shock cardiorenal syndrome Acute systolic heart failure exacerbation Nonsustained ventricular tachycardia, expected Diabetic foot ulcer Nonischemic cardiomyopathy EF 20%, status post AICD Hypertension Dyslipidemia Type II Diabetes Smoker, No compliance Plan: Continue patient on dobutamine drip 2.5 mcg/hr Continue Aldactone 12.5 mg daily Stop Metoprolol due to cardiorenal Start patient on Isordil 10 mg 3 times daily, metolazone 5 mg daily to reduce afterload Follow kidney function tomorrow, once kidney function improves, Do not give midodrine until SBP is less than 80 and mean arterial pressure is less than 60 mmHg Poor prognosis. Nurse practitioner note has been reviewed, I agree with the documented findings and plan of care. Patient was seen and examined. Objective - Vital Signs Vital signs: Vital Signs Temp 97.5 F L 05/20/23 08:00 Pulse 79 05/20/23 08:00 Resp 14 05/20/23 08:00 BP 91/57 05/20/23 08:00 Pulse Ox 96 05/20/23 08:00 FiO2 Intake & Output 05/19/23 05/20/23 05/20/23 18:59 06:59 18:59 Intake Total 120 Output Total 500 Balance -380 Weight 111.3 kg Intake: IV 120 Invasive Line 2 10 Invasive Line 3 10 Piperacillin-Tazobactam 3 100 .375 gm In Sodium Chloride 0.9% 100 ml @ 25 mls/hr IVPB Q8HR [facility] Rx# :[id number] Oral 0 Output: Urine 500 Other: Voiding Method Toilet Toilet Urinal Urinal # Voids 1 - Labs CBC & Chem 7: 05/15/23 05:53 05/20/23 11:58 Labs: Abnormal Lab Results - Last 24 Hours (Table) 05/19/23 05/19/23 05/20/23 Range/Units 12:55 20:48 11:19 Sodium 134 L (137-145) mmol/L Chloride 97 L (98-107) mmol/L BUN 78 H (9-20) mg/dL Creatinine 2.91 H (0.66-1.25) mg/dL Glucose 129 H (74-99) mg/dL POC Glucose (mg/dL) 126 H 119 H (70-110) mg/dL Microbiology - Last 24 Hours (Table) 05/16/23 17:06 Anaerobic Culture - Final Heel - Right Anaerobic Gm Negative Bacilli 05/14/23 16:55 Blood Culture - Final Blood 05/16/23 17:06 Gram Stain - Preliminary Heel - Right Tissue Culture - Preliminary Gram Neg Bacilli 05/14/23 17:05 Blood Culture Gram Stain - Preliminary Blood Blood Culture - Preliminary Corynebacterium species
--- NOTE | 2023-05-20 15:41 | P.PN ---
Progress Note - Text Progress Note Date: 05/20/23 Chief Complaint: Right foot wound This is a 52-year-old patient, follows with Dr. Rodríguez. Chronic stable medical condition include CHF EF less than 20%, COPD, diabetes mellitus type 2, hypertension, hyperlipidemia, obstructive sleep apnea, anxiety, AICD, lower extremity venous insufficiency. Patient had lower extremity wounds and has been followed by ID and Dr. Lugo from vascular. Patient has not been able to make a wound care center regularly because of transportation issues. Now presents with worsening wound on the right foot. Has had previous debridement of same. It is draining. Somewhat foul-smelling.. Patient had some chills. May 15: Patient had right foot wound debridement with Dr. Lugo. Currently in dressing. Patient received IV fluids from the ER. Stop the same. IV Lasix. Patient is on IV Unasyn and IV vancomycin per ID. Significant edema. May 16: IV Lasix 60 mg every 12. Unclear if he is making much urine. IV vancomycin was discontinued yesterday because of renal function. Some decrease in edema. Oral intake good. IV Unasyn. Being followed by ID. May 17: Making good urine. I's and O not well documented. Remains on IV Lasix 60:12. Still a significant edema. Breathing is stable. IV Unasyn. Creatinine 2.05. I discussed with Dr. Lugo from vascular. Patient might need a amputation down the road. Patient has several social issues going on. May 18: Patient placed on IV Bumex. Making urine. Significant edema present. Breathing much better. Creatinine going up. Being followed by cardiology and nephrology. May 19: Today remains on IV Bumex 2 mg every 12. We started on dobutamine drip and both the cardiology selective floor. IV Zosyn to continue. Tolerating diet well. Breathing stable. Lower extremity edema. Creatinine worsening May 20: Patient is moved to the selective cartilage E flow. Remains on IV dobutamine. An IV Bumex bolus. Urine output. Noted tolerating diet. Also on Zaroxolyn. Creatinine has plateaued off Active Medications Acetaminophen (Acetaminophen Tab 325 Mg Tab) 650 mg PO Q6HR PRN PRN Reason: Mild Pain or Fever > 100.5 Albuterol Sulfate (Albuterol Nebulized 2.5 Mg/3 Ml) 2.5 mg INHALATION RT-QID PRN PRN Reason: Shortness Of Breath Last Admin: 05/17/23 08:56 Dose: 2.5 mg Alprazolam (Alprazolam 0.25 Mg Tab) 0.25 mg PO Q6HR PRN PRN Reason: Anxiety Aspirin (Aspirin 81 Mg) 81 mg PO DAILY [facility] Last Admin: 05/20/23 09:03 Dose: 81 mg Atorvastatin Calcium (Atorvastatin 40 Mg Tab) 40 mg PO DAILY [facility] Last Admin: 05/20/23 09:03 Dose: 40 mg Bumetanide (Bumetanide 0.25 Mg/Ml 4 Ml Vial) 2 mg IVP 0900,1600 [facility] Last Admin: 05/20/23 09:03 Dose: 2 mg Calcium Carbonate/Glycine (Calcium Carbonate 500 Mg Chewable) 1,000 mg PO Q4HR PRN PRN Reason: Dyspepsia Cyclobenzaprine HCl (Cyclobenzaprine 10 Mg Tab) 10 mg PO QID [facility] Last Admin: 05/20/23 11:55 Dose: 10 mg Dextrose/Water (Dextrose 50% Syringe 50 Ml) 25 ml IVP PER PROTOCOL PRN; Protocol PRN Reason: Hypoglycemia Dextrose/Water (Dextrose 50% Syringe 50 Ml) 50 ml IVP PER PROTOCOL PRN; Protocol PRN Reason: Hypoglycemia Duloxetine HCl (Duloxetine Hcl 60 Mg Capsule.Dr) 60 mg PO BID [facility] Last Admin: 05/20/23 09:03 Dose: 60 mg Hydralazine HCl (Hydralazine Hcl 10 Mg Tab) 10 mg PO TID [facility] Last Admin: 05/20/23 11:59 Dose: Not Given Piperacillin Sod/Tazobactam (Sod 3.375 gm/ Sodium Chloride) 100 mls @ 25 mls/hr IVPB Q8HR [facility]; Protocol Last Admin: 05/20/23 08:58 Dose: 25 mls/hr Dobutamine HCl/Dextrose 500 mg (/ IV Solution) 250 mls @ 8.663 mls/hr IV .Q24H [facility] Last Admin: 05/19/23 17:00 Dose: 2.5 mcg/kg/min, 8.663 mls/hr Insulin Aspart (Insulin Aspart (Novolog) 100 Unit/Ml Vial) 0 unit SQ ACHS [facility]; Protocol Last Admin: 05/20/23 11:28 Dose: Not Given Insulin Detemir (Insulin Detemir (Levemir) 100 Unit/Ml Syr) 20 unit SQ DAILY@0700 [facility] Last Admin: 05/20/23 06:57 Dose: 20 unit Isosorbide Dinitrate (Isosorbide Dinitrate 10 Mg Tab) 10 mg PO TID [facility] Last Admin: 05/20/23 11:59 Dose: Not Given Lactulose (Lactulose 20 Gm/30 Ml Cup) 20 gm PO DAILY PRN PRN Reason: Constipation Last Admin: 05/19/23 10:14 Dose: 20 gm Melatonin (Melatonin 3 Mg Tablet) 3 mg PO HS PRN PRN Reason: Insomnia Metolazone (Metolazone 5 Mg Tab) 5 mg PO DAILY [facility] Midodrine (Midodrine 5 Mg Tab) 5 mg PO AC-TID [facility] Last Admin: 05/20/23 11:55 Dose: 5 mg Morphine Sulfate (Morphine Sulfate 4 Mg/Ml Syringe) 4 mg IV Q4HR PRN PRN Reason: Severe Pain (Scale 7 to 10) Morphine Sulfate (Morphine Sulfate Ir 15 Mg Tablet) 30 mg PO QID PRN PRN Reason: Analgesia Naloxone HCl (Naloxone 0.4 Mg/Ml 1 Ml Vial) 0.2 mg IV Q2M PRN PRN Reason: Opioid Reversal Nicotine (Nicotine 14mg/24hr Patch) 1 patch TRANSDERM DAILY [facility] Last Admin: 05/20/23 09:03 Dose: 1 patch Ondansetron HCl (Ondansetron 4 Mg/2 Ml Vial) 4 mg IVP Q8HR PRN PRN Reason: Nausea And Vomiting Last Admin: 05/18/23 12:20 Dose: 4 mg Silver Sulfadiazine (Silver Sulfadiazine 1% Cream 25 Gm Tube) 1 applic TOPICAL BID [facility]; Protocol Last Admin: 05/20/23 09:21 Dose: 1 applic Spironolactone (Spironolactone 25 Mg Tab) 12.5 mg PO DAILY [facility] Last Admin: 05/20/23 09:02 Dose: 12.5 mg Zolpidem Tartrate (Zolpidem 5 Mg Tab) 10 mg PO HS PRN PRN Reason: Insomnia Social history: Lives with his 20-year-old son. Disabled. 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 Smoking 2 packs a day for most of his life now down to half a pack a day. Stop drinking heavy alcohol about 20 years ago. Has done marijuana. Physical examination: VITAL SIGNS: 98, 75, 16, 95/56, 95% room air GENERAL: Sitting at edge of the bed, tired EYES: Pupils equal. Conjunctiva normal. HEENT: External appearance of nose and ears normal, oral cavity grossly normal. NECK: JVD unable to assess; masses not palpable. HEART: First and second heart sounds are normal; significant edema LUNGS: Respiratory rate normal; diminished breath sounds ABDOMEN: Soft, nontender, liver spleen not palpable, no masses palpable. PSYCH: Alert and oriented x3; mood and affect anxiousl. MUSCULOSKELETAL:No Clubbing/cyanosis;muscles-grossly intact DERMATOLOGICAL: Right foot wound-dressing. More details - nursing notes. INVESTIGATIONS, reviewed in the clinical context: May 20: Sodium 135 potassium 4.7 BUN 80 creatinine 2.74 May 19: Potassium 4.8 BUN 78 creatinine 2.91 May 18: Potassium 4.7 bicarb 21. 72 creatinine 2.64 Wound culture: Proteus vulgaris. Streptococcus agalactiae group B May 17: Creatinine 2.05 May 16: Creatinine 1.94 May 15: White count 15.4 hemoglobin 12.4 potassium 3.7 BUN 59 creatinine 1.55 05/14/2023: White count 15 hemoglobin 13 platelets 254 sodium 134 potassium 4.2 BUN 58 creatinine 1.23 lactic acid 2.6 Assessment and plan: -Acute right lower leg cellulitis, infected right heel diabetic ulcer with prior history of debridement. Has not been able to follow the wound care center because of transport. Wound swab for Gram stain and culture. Proteus vulgaris, Streptococcus agalac tiae group B IV Unasyn Underwent debridement by Dr. Lugo Followed by ID and Dr. Lugo from vascular. -Sepsis from right leg wound. IV Unasyn Hold off IV fluids because of CHF. -Acute on chronic congestive heart failure nonischemic cardiomyopathy systolic dysfunction EF less than 20%: Slow to respond IV Bumex 2 mg every 12.. Aldactone 25 mg . Entresto-hold because of renal function Zaroxolyn 5 mg. dobutamine drip. AICD. - COPD current smoker Ventolin. -Diabetes mellitus type 2 chronically on insulin, uncontrolled with hyperglycemia and hypoglycemia. Levemir 20 units subcu daily . Diabetic diet. Accu-Cheks and sliding scale -Hyperlipidemia -Chronic kidney disease stage III from diabetic nephropathy and nephrosclerosis Baseline creatinine of 1.2 on May 14. -Acute kidney injury likely ATN from cardiorenal syndrome and possible vancomycin: Slow to respond Follow renal function. Entresto held Nephrology following -Essential hypertension Entresto-hold for now -Obstructive sleep apnea sometimes uses CPAP machine -Diabetic peripheral neuropathy -Anxiety Ativan when necessary -DJD Tylenol when necessary -Chronic nicotine dependence patient cigarette smoker Nicotine patch 14 -AICD -Lower extremity chronic venous insufficiency IV Bumex. . Dobutamine drip discussed with patient. Follow labs closely.
[2023-05-20] MEDS: metOLazone 5 MG TAB PO SCH (15:53)
--- NOTE | 2023-05-20 16:14 | P.PN ---
Progress Note - Text 52-year-old gentleman history of chronic wound involving the D heel and we did the debridement today been treating with the medihoney gel and under care of infectious disease IV antibiotic we have discussed about possible amputation patient does not want to go that route he wanted us to continue with local wound care and IV antibiotic if patient goes home follow-up in the wound clinic
[2023-05-20 16:55] LABS: Glucose,Whole Blood 115 mg/dL (70-110)
[2023-05-20 20:06] LABS: Glucose,Whole Blood 162 mg/dL (70-110)
[2023-05-20] MEDS: DOBUTamine DRIP 500 MG in DEXTROSE/WATER 1 250ML.BAG IV SCH (20:38)
[2023-05-21] MEDS: PIPERACILLIN-TAZOBACTAM 3.375 GM in SODIUM CHLORIDE 0.9% 100 ML IVPB SCH ×4 (00:19→22:39)
[2023-05-21 06:08] LABS: Glucose,Whole Blood 123 mg/dL (70-110)
[2023-05-21] MEDS: INSULIN ASPART (NovoLOG) 100 UNIT/ML VIAL SQ SCH ×4 (06:08→20:07)
[2023-05-21] MEDS: INSULIN DETEMIR (LEVEMIR) 100 UNIT/ML SYR SQ SCH (06:32)
[2023-05-21] MEDS: MIDODRINE 5 MG TAB PO SCH ×3 (08:31→17:13)
[2023-05-21] MEDS: BUMETANIDE 0.25 MG/ML 4 ML VIAL IVP SCH (10:22)
[2023-05-21] MEDS: NICOTINE 14MG/24HR PATCH TRANSDERM SCH (10:40)
[2023-05-21] MEDS: ATORVASTATIN 40 MG TAB PO SCH (10:57)
[2023-05-21] MEDS: hydrALAZINE HCL 10 MG TAB PO SCH ×3 (10:57→22:39)
[2023-05-21] MEDS: SPIRONOLACTONE 25 MG TAB PO SCH (10:58)
[2023-05-21] MEDS: CYCLOBENZAPRINE 10 MG TAB PO SCH ×4 (10:58→22:39)
[2023-05-21] MEDS: DULoxetine HCL 60 MG CAPSULE.DR PO SCH ×2 (10:58→20:04)
[2023-05-21] MEDS: ASPIRIN 81 MG PO SCH (11:09)
[2023-05-21] MEDS: ISOSORBIDE DINITRATE 10 MG TAB PO SCH ×3 (11:14→22:39)
[2023-05-21] MEDS: metOLazone 5 MG TAB PO SCH (11:14)
[2023-05-21 11:32] LABS: Glucose,Whole Blood 126 mg/dL (70-110)
--- NOTE | 2023-05-21 11:42 | P.PN ---
Subjective Patient is seen for f/u for ANGY. Started on dobutamine drip due to worsening renal function and significant volume overload. Maintained on midodrine for significant hypotension. Serum creatinine slightly improved to 2.7 mg/dL. Urine output cannot be accurately charted however weight has decreased. No significant complaints today. Objective - Vital Signs Vital signs: Vital Signs Temp 97.6 F 05/21/23 08:00 Pulse 69 05/21/23 10:51 Resp 14 05/21/23 10:51 BP 94/60 05/21/23 08:00 Pulse Ox 96 05/21/23 03:54 FiO2 Intake & Output 05/20/23 05/21/23 05/21/23 18:59 06:59 18:59 Intake Total 900 239.388 118 Output Total 150 Balance 750 239.388 118 Intake: Intake, IV Titration 239.388 Amount DOBUTamine DRIP 500 mg In 239.388 Dextrose/Water 1 250ml. bag @ 2.5 MCG/KG/MIN 8. 663 mls/hr IV .Q24H [facility] Rx#:[id number] Oral 900 118 Output: Urine 150 Other: Voiding Method Toilet Toilet Toilet Urinal Urinal Urinal - Exam Awake, comfortable. Patient is awake. Ounces questions appropriately Lungs show decreased breath sounds at bases CVS S1 and S2 Abdomen is soft, non tender. Ext. 3+ edema bilaterally, right leg is wrapped, right worse than left MATERIAL MOVER exam grossly intact - Labs CBC & Chem 7: 05/15/23 05:53 05/20/23 11:58 Labs: Abnormal Lab Results - Last 24 Hours (Table) 05/20/23 05/20/23 05/20/23 Range/Units 11:58 16:53 20:04 Sodium 135 L (137-145) mmol/L BUN 80 H (9-20) mg/dL Creatinine 2.74 H (0.66-1.25) mg/dL Glucose 102 H (74-99) mg/dL POC Glucose (mg/dL) 115 H 162 H (70-110) mg/dL Phosphorus 5.3 H (2.5-4.5) mg/dL Albumin 3.2 L (3.5-5.0) g/dL 05/21/23 05/21/23 Range/Units 06:06 11:30 Sodium (137-145) mmol/L BUN (9-20) mg/dL Creatinine (0.66-1.25) mg/dL Glucose (74-99) mg/dL POC Glucose (mg/dL) 123 H 126 H (70-110) mg/dL Phosphorus (2.5-4.5) mg/dL Albumin (3.5-5.0) g/dL Microbiology - Last 24 Hours (Table) 05/16/23 17:06 Gram Stain - Final Heel - Right Tissue Culture - Final Providencia rustigianii Acinetobacter lwoffi grp 05/14/23 17:05 Blood Culture Gram Stain - Final Blood Blood Culture - Final Corynebacterium species Assessment and Plan Assessment: 1. Acute kidney injury secondary to ATN secondary to hypotension and cardiorenal syndrome. Creatinine 1.23 on admission. Started on dobutamine drip. Continue with the Bumex. Renal function improved 2. Acute on chronic systolic CHF with ejection fraction of less than 20% with moderate to severe mitral regurgitation, moderate tricuspid regurgitation and severe pulmonary hypertension noted on echocardiogram done in June 2022. 3. Volume overload. 4. Right foot wound being followed by vascular surgery and infectious disease. Status post debridement. On antibiotics. 5. Diabetes mellitus. Plan: Continue with dobutamine infusion Continue with IV Bumex and low-dose Aldactone. Continue with midodrine. Repeat labs in a.m.
[2023-05-21 11:54] LABS: African American GFR (CKD) 29 (>60 ml/min/1.73 sqM); Anion Gap 16 mmol/L; Blood Urea Nitrogen 88 mg/dL (9-20); Calcium 8.4 mg/dL (8.4-10.2); Carbon Dioxide 20 mmol/L (22-30); Chloride 98 mmol/L (98-107); Glucose 137 mg/dL (74-99); Non-African American GFR(CKD) 25 (>60 ml/min/1.73 sqM); Potassium 4.7 mmol/L (3.5-5.1); Sodium 134 mmol/L (137-145)
[2023-05-21] MEDS: ALBUTEROL NEBULIZED 2.5 MG/3 ML INHALATION PRN (12:58)
--- NOTE | 2023-05-21 13:22 | P.PN ---
Progress Note - Text Progress Note Date: 05/21/23 Chief Complaint: Right foot wound This is a 52-year-old patient, follows with Dr. Rodríguez. Chronic stable medical condition include CHF EF less than 20%, COPD, diabetes mellitus type 2, hypertension, hyperlipidemia, obstructive sleep apnea, anxiety, AICD, lower extremity venous insufficiency. Patient had lower extremity wounds and has been followed by ID and Dr. Lugo from vascular. Patient has not been able to make a wound care center regularly because of transportation issues. Now presents with worsening wound on the right foot. Has had previous debridement of same. It is draining. Somewhat foul-smelling.. Patient had some chills. May 15: Patient had right foot wound debridement with Dr. Lugo. Currently in dressing. Patient received IV fluids from the ER. Stop the same. IV Lasix. Patient is on IV Unasyn and IV vancomycin per ID. Significant edema. May 16: IV Lasix 60 mg every 12. Unclear if he is making much urine. IV vancomycin was discontinued yesterday because of renal function. Some decrease in edema. Oral intake good. IV Unasyn. Being followed by ID. May 17: Making good urine. I's and O not well documented. Remains on IV Lasix 60:12. Still a significant edema. Breathing is stable. IV Unasyn. Creatinine 2.05. I discussed with Dr. Lugo from vascular. Patient might need a amputation down the road. Patient has several social issues going on. May 18: Patient placed on IV Bumex. Making urine. Significant edema present. Breathing much better. Creatinine going up. Being followed by cardiology and nephrology. May 19: Today remains on IV Bumex 2 mg every 12. We started on dobutamine drip and both the cardiology selective floor. IV Zosyn to continue. Tolerating diet well. Breathing stable. Lower extremity edema. Creatinine worsening May 20: Patient is moved to the selective cardiology floor. Remains on IV dobutamine. An IV Bumex bolus. Urine output. Noted tolerating diet. Also on Zaroxolyn. Creatinine has plateaued off May 21: Tired. Oral intake fair. Remains on IV dobutamine drip and IV Bumex and bolus. Making urine. Some improvement in creatinine. Remains on IV Zosyn. Active Medications Acetaminophen (Acetaminophen Tab 325 Mg Tab) 650 mg PO Q6HR PRN PRN Reason: Mild Pain or Fever > 100.5 Albuterol Sulfate (Albuterol Nebulized 2.5 Mg/3 Ml) 2.5 mg INHALATION RT-QID PRN PRN Reason: Shortness Of Breath Last Admin: 05/21/23 12:58 Dose: 2.5 mg Alprazolam (Alprazolam 0.25 Mg Tab) 0.25 mg PO Q6HR PRN PRN Reason: Anxiety Aspirin (Aspirin 81 Mg) 81 mg PO DAILY [facility] Last Admin: 05/21/23 11:09 Dose: 81 mg Atorvastatin Calcium (Atorvastatin 40 Mg Tab) 40 mg PO DAILY [facility] Last Admin: 05/21/23 10:57 Dose: 40 mg Bumetanide (Bumetanide 0.25 Mg/Ml 10 Ml Vial) 3 mg IV 0900,1600 [facility] Calcium Carbonate/Glycine (Calcium Carbonate 500 Mg Chewable) 1,000 mg PO Q4HR PRN PRN Reason: Dyspepsia Cyclobenzaprine HCl (Cyclobenzaprine 10 Mg Tab) 10 mg PO QID [facility] Last Admin: 05/21/23 10:58 Dose: 10 mg Dextrose/Water (Dextrose 50% Syringe 50 Ml) 25 ml IVP PER PROTOCOL PRN; Protocol PRN Reason: Hypoglycemia Dextrose/Water (Dextrose 50% Syringe 50 Ml) 50 ml IVP PER PROTOCOL PRN; Protocol PRN Reason: Hypoglycemia Duloxetine HCl (Duloxetine Hcl 60 Mg Capsule.Dr) 60 mg PO BID [facility] Last Admin: 05/21/23 10:58 Dose: 60 mg Hydralazine HCl (Hydralazine Hcl 10 Mg Tab) 10 mg PO TID [facility] Last Admin: 05/21/23 10:57 Dose: 10 mg Piperacillin Sod/Tazobactam (Sod 3.375 gm/ Sodium Chloride) 100 mls @ 25 mls/hr IVPB Q8HR [facility]; Protocol Last Admin: 05/21/23 10:22 Dose: 25 mls/hr Dobutamine HCl/Dextrose 500 mg (/ IV Solution) 250 mls @ 17.325 mls/hr IV .[id number] [facility] Last Admin: 05/20/23 20:38 Dose: 2.5 mcg/kg/min, 8.663 mls/hr Insulin Aspart (Insulin Aspart (Novolog) 100 Unit/Ml Vial) 0 unit SQ ACHS [facility]; Protocol Last Admin: 05/21/23 11:47 Dose: Not Given Insulin Detemir (Insulin Detemir (Levemir) 100 Unit/Ml Syr) 20 unit SQ DAILY@0700 [facility] Last Admin: 05/21/23 06:32 Dose: 20 unit Isosorbide Dinitrate (Isosorbide Dinitrate 10 Mg Tab) 10 mg PO TID [facility] Last Admin: 05/21/23 11:14 Dose: 10 mg Lactulose (Lactulose 20 Gm/30 Ml Cup) 20 gm PO DAILY PRN PRN Reason: Constipation Last Admin: 05/19/23 10:14 Dose: 20 gm Melatonin (Melatonin 3 Mg Tablet) 3 mg PO HS PRN PRN Reason: Insomnia Metolazone (Metolazone 5 Mg Tab) 5 mg PO DAILY [facility] Last Admin: 05/21/23 11:14 Dose: 5 mg Midodrine (Midodrine 5 Mg Tab) 5 mg PO AC-TID [facility] Last Admin: 05/21/23 12:06 Dose: Not Given Morphine Sulfate (Morphine Sulfate 4 Mg/Ml Syringe) 4 mg IV Q4HR PRN PRN Reason: Severe Pain (Scale 7 to 10) Morphine Sulfate (Morphine Sulfate Ir 15 Mg Tablet) 30 mg PO QID PRN PRN Reason: Analgesia Naloxone HCl (Naloxone 0.4 Mg/Ml 1 Ml Vial) 0.2 mg IV Q2M PRN PRN Reason: Opioid Reversal Nicotine (Nicotine 14mg/24hr Patch) 1 patch TRANSDERM DAILY [facility] Last Admin: 05/21/23 10:40 Dose: 1 patch Ondansetron HCl (Ondansetron 4 Mg/2 Ml Vial) 4 mg IVP Q8HR PRN PRN Reason: Nausea And Vomiting Last Admin: 05/18/23 12:20 Dose: 4 mg Silver Sulfadiazine (Silver Sulfadiazine 1% Cream 25 Gm Tube) 1 applic TOPICAL BID [facility]; Protocol Last Admin: 05/21/23 10:40 Dose: 1 applic Spironolactone (Spironolactone 25 Mg Tab) 12.5 mg PO DAILY [facility] Last Admin: 05/21/23 10:58 Dose: 12.5 mg Zolpidem Tartrate (Zolpidem 5 Mg Tab) 10 mg PO HS PRN PRN Reason: Insomnia Social history: Lives with his 20-year-old son. Disabled. 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 Smoking 2 packs a day for most of his life now down to half a pack a day. Stop drinking heavy alcohol about 20 years ago. Has done marijuana. Physical examination: VITAL SIGNS: 87.6, 71, 14, 90/60, 96% room air GENERAL: Sitting at edge of the bed, tired EYES: Pupils equal. Conjunctiva normal. HEENT: External appearance of nose and ears normal, oral cavity grossly normal. NECK: JVD unable to assess; masses not palpable. HEART: First and second heart sounds are normal; significant edema LUNGS: Respiratory rate normal; diminished breath sounds ABDOMEN: Soft, nontender, liver spleen not palpable, no masses palpable. PSYCH: Alert and oriented x3; mood and affect tired MUSCULOSKELETAL:No Clubbing/cyanosis;muscles-grossly intact DERMATOLOGICAL: Right foot wound-dressing. More details - nursing notes. INVESTIGATIONS, reviewed in the clinical context: May 21: Sodium 134 potassium 4.7 BUN 88 creatinine 2.74 May 20: Sodium 135 potassium 4.7 BUN 80 creatinine 2.74 May 19: Potassium 4.8 BUN 78 creatinine 2.91 May 18: Potassium 4.7 bicarb 21. 72 creatinine 2.64 Wound culture: Proteus vulgaris. Streptococcus agalactiae group B May 17: Creatinine 2.05 May 16: Creatinine 1.94 May 15: White count 15.4 hemoglobin 12.4 potassium 3.7 BUN 59 creatinine 1.55 05/14/2023: White count 15 hemoglobin 13 platelets 254 sodium 134 potassium 4.2 BUN 58 creatinine 1.23 lactic acid 2.6 Assessment and plan: -Acute right lower leg cellulitis, infected right heel diabetic ulcer with prior history of debridement. Has not been able to follow the wound care center because of transport. Wound swab for Gram stain and culture. Proteus vulgaris, Streptococcus agalactiae group B IV Unasyn Underwent debridement by Dr. Lugo Followed by ID and Dr. Lugo from vascular. -Sepsis from right leg wound. IV Unasyn Hold off IV fluids because of CHF. -Acute on chronic congestive heart failure nonischemic cardiomyopathy systolic dysfunction EF less than 20%: Slow to respond IV Bumex 2 mg every 12.. Aldactone 25 mg . Entresto-hold because of renal function Zaroxolyn 5 mg. continue dobutamine drip. AICD. - COPD current smoker Ventolin. -Diabetes mellitus type 2 chronically on insulin, uncontrolled with hyperglycemia and hypoglycemia. Levemir 20 units subcu daily . Diabetic diet. Accu-Cheks and sliding scale -Hyperlipidemia -Chronic kidney disease stage III from diabetic nephropathy and nephrosclerosis Baseline creatinine of 1.2 on May 14. -Acute kidney injury likely ATN from cardiorenal syndrome and possible vancomycin: Slow to respond Follow renal function. Entresto held Nephrology following -Essential hypertension Entresto-hold for now -Obstructive sleep apnea sometimes uses CPAP machine -Diabetic peripheral neuropathy -Anxiety Ativan when necessary -DJD Tylenol when necessary -Chronic nicotine dependence patient cigarette smoker Nicotine patch 14 -AICD -Lower extremity chronic venous insufficiency IV Bumex. . Dobutamine drip . IV Zosyn. Wound care.
--- NOTE | 2023-05-21 13:41 | P.PN ---
Subjective Progress Note Date: 05/21/23 History of present illness: This is a 52-year-old male patient of Dr. Yared Abbasi with past medical history of nonischemic cardiomyopathy, hypertension, dyslipidemia, status post AICD, diabetes. We have been asked to evaluate the patient for run of V. tach. Patient has presented to the hospital due to right heel diabetic foot ulcer with osteomyelitis status post debridement. Patient had a run of nonsustained ventricular tachycardia of 13 beats. He does have AICD as noted above. Patient denies having any chest pain. Noted that patient has now been resumed on Entresto due to hypotension. Patient is currently on IV Lasix 60 mg every 12 hours. Sodium 136, potassium 4.3, BUN 67 creatinine 2.05. WBC 15.4, hemoglobin 12.4. Home cardiac medications: Lasix 80 mg twice daily, Entresto 24 mg26 mg twice daily, Aldactone 25 mg daily [address] [facility] Echocardiogram 06/2022 revealed EF less than 20% with global hypokinesia. Progress Note Date: 05/19/23 Progress note: Patient's creatinine has continued to decline on diuretic therapy. His EF is 10-15%. Creatinine 1.5-on admission, with diuretic therapy creatinine has increased to 2.91. I will start him on low-dose dobutamine running at 5 mcg/h. Transfer patient to [address] [place], [place] [address]etry. BP 91/67, Urine output was not documented accurately 05/20 Patient is seen today on the cardiac stepdown unit. Patient was started on dobutamine drip yesterday he states is urinating about the same amount yesterday yesterday. He continues to have edema up into the thigh area and also having acute kidney injury. In general he feels he is okay. No significant pain in his foot. Blood pressure 91/57, heart rate in the 70s, afebrile, pulse ox 96% on room air. BUN 80 creatinine 2.74. Nephrology is switching patient to Bumex drip. 05/21 The patient does not appear to be urinating very much for not all of his output is being measured as he is sometimes using the bathroom. Patient is currently on dobutamine drip at 2.5 g, Bumex 2 mg IV twice daily and Aldactone 12.5 mg daily. Yesterday we added in Isordil, metolazone and hydralazine. Systolic blood pressures of been in the 90s, heart rates in the 60s to 80s. Repeat blood work reveals BUN 88 and creatinine 2.74. Physical examination: Gen: This is a 52-year-old male. He is resting in bed and appears comfortable and in no acute distress. VS: reviewed HEENT: Head is atraumatic, normocephalic. Pupils equal, round. Sclerae is anicteric. NECK: Supple. No JVD. LUNGS: Clear to auscultation. No wheezes or rhonchi. No intercostal retrac tions. HEART: Regular rate and rhythm. No murmur. ABDOMEN: Soft No tenderness. EXTREMITIES: Dressing on the right foot. 23 plus pedal edema. No calf tenderness. NEUROLOGICAL: Patient is awake, alert and oriented x3. Assessment: Cardiogenic shock cardiorenal syndrome Acute systolic heart failure exacerbation Nonsustained ventricular tachycardia, expected Diabetic foot ulcer Nonischemic cardiomyopathy EF 20%, status post AICD Hypertension Dyslipidemia Type II Diabetes Smoker, No compliance Plan: Continue patient on dobutamine drip increased to 5 mcg/hr Continue Aldactone 12.5 mg daily Stop Metoprolol due to cardiorenal Continue patient on Isordil 10 mg 3 times daily, metolazone 5 mg daily to reduce afterload Increase Bumex to 3 mg IV twice daily Follow kidney function tomorrow, once kidney function improves, Do not give midodrine until SBP is less than 80 and mean arterial pressure is less than 60 mmHg Poor prognosis. Nurse practitioner note has been reviewed, I agree with the documented findings and plan of care. Patient was seen and examined. Objective - Vital Signs Vital signs: Vital Signs Temp 97.6 F 05/21/23 08:00 Pulse 69 05/21/23 10:51 Resp 14 05/21/23 10:51 BP 94/60 05/21/23 08:00 Pulse Ox 96 05/21/23 03:54 FiO2 Intake & Output 05/20/23 05/21/23 05/21/23 18:59 06:59 18:59 Intake Total 900 239.388 118 Output Total 150 Balance 750 239.388 118 Intake: Intake, IV Titration 239.388 Amount DOBUTamine DRIP 500 mg In 239.388 Dextrose/Water 1 250ml. bag @ 2.5 MCG/KG/MIN 8. 663 mls/hr IV .Q24H [facility] Rx#:[id number] Oral 900 118 Output: Urine 150 Other: Voiding Method Toilet Toilet Toilet Urinal Urinal Urinal - Labs CBC & Chem 7: 05/15/23 05:53 05/21/23 11:26 Labs: Abnormal Lab Results - Last 24 Hours (Table) 05/20/23 05/20/23 05/20/23 Range/Units 11:19 11:58 16:53 Sodium 135 L (137-145) mmol/L BUN 80 H (9-20) mg/dL Creatinine 2.74 H (0.66-1.25) mg/dL Glucose 102 H (74-99) mg/dL POC Glucose (mg/dL) 119 H 115 H (70-110) mg/dL Phosphorus 5.3 H (2.5-4.5) mg/dL Albumin 3.2 L (3.5-5.0) g/dL 05/20/23 05/21/23 Range/Units 20:04 06:06 Sodium (137-145) mmol/L BUN (9-20) mg/dL Creatinine (0.66-1.25) mg/dL Glucose (74-99) mg/dL POC Glucose (mg/dL) 162 H 123 H (70-110) mg/dL Phosphorus (2.5-4.5) mg/dL Albumin (3.5-5.0) g/dL Microbiology - Last 24 Hours (Table) 05/16/23 17:06 Gram Stain - Final Heel - Right Tissue Culture - Final Providencia rustigianii Acinetobacter lwoffi grp 05/14/23 17:05 Blood Culture Gram Stain - Final Blood Blood Culture - Final Corynebacterium species
--- NOTE | 2023-05-21 14:25 | P.PN ---
Subjective Progress Note Date: 05/20/23 Principal diagnosis: R diabetic foot/osteomyelitis Patient is a 52-year-old male with a past medical history significant for right heel diabetic foot infection with an episode of osteomyelitis. Patient completed his antibiotic therapy now presenting back to the hospital with worsening wound, the patient did have a surgical debridement of the right heel wound completed on 01/14/2023 On today's evaluation that is 05/20/2023, the patient continues to be afebrile, the patient is breathing comfortably on room air and denies any chest pain or cough, patient denies abdominal pain, and denies any nausea/vomiting or diarrhea , the patient denies pain to the right foot wound area. Patient did have a white count of 15.4 as of 05/15/2023 creatinine is 2.74, local currently growing Proteus and Streptococcus agalactiae Objective - Vital Signs Vital signs: Vital Signs Temp 98.0 F 05/20/23 11:55 Pulse 75 05/20/23 11:55 Resp 16 05/20/23 11:55 BP 95/56 05/20/23 11:55 Pulse Ox 95 05/20/23 11:55 FiO2 Intake & Output 05/19/23 05/20/23 05/20/23 18:59 06:59 18:59 Intake Total 120 360 Output Total 500 Balance -380 360 Weight 111.3 kg Intake: IV 120 Invasive Line 2 10 Invasive Line 3 10 Piperacillin-Tazobactam 3 100 .375 gm In Sodium Chloride 0.9% 100 ml @ 25 mls/hr IVPB Q8HR [facility] Rx# :[id number] Oral 0 360 Output: Urine 500 Other: Voiding Method Toilet Toilet Urinal Urinal # Voids 1 - Exam GENERAL DESCRIPTION: Middle-age male lying in bed in no distress RESPIRATORY SYSTEM: Unlabored breathing , decreased breath sounds at bases HEART: S1 S2 regular rate and rhythm ,no loud murmurs ABDOMEN: Soft , no tenderness EXTREMITIES: Right foot is currently dressed no drainage on the dressing - Labs CBC & Chem 7: 05/15/23 05:53 05/21/23 11:26 Labs: Abnormal Lab Results - Last 24 Hours (Table) 05/19/23 05/19/23 05/20/23 Range/Units 12:55 20:48 11:19 Sodium 134 L (137-145) mmol/L Chloride 97 L (98-107) mmol/L BUN 78 H (9-20) mg/dL Creatinine 2.91 H (0.66-1.25) mg/dL Glucose 129 H (74-99) mg/dL POC Glucose (mg/dL) 126 H 119 H (70-110) mg/dL Microbiology - Last 24 Hours (Table) 05/16/23 17:06 Anaerobic Culture - Final Heel - Right Anaerobic Gm Negative Bacilli 05/14/23 16:55 Blood Culture - Final Blood 05/16/23 17:06 Gram Stain - Preliminary Heel - Right Tissue Culture - Preliminary Gram Neg Bacilli 05/14/23 17:05 Blood Culture Gram Stain - Preliminary Blood Blood Culture - Preliminary Corynebacterium species Assessment and Plan (1) Foot osteomyelitis, right Current Visit: Yes Status: Acute Code(s): M86.9 - OSTEOMYELITIS, UNSPECIFIED SNOMED Code(s): 9940577875984608 (2) Type 2 diabetes mellitus with right diabetic foot ulcer Current Visit: Yes Status: Acute Code(s): E11.621 - TYPE 2 DIABETES MELLITUS WITH FOOT ULCER; L97.519 - NON-PRS CHRONIC ULCER OTH PRT RIGHT FOOT W UNSP SE VERITY SNOMED Code(s): 512910132 (3) Wound infection Current Visit: Yes Status: Acute Code(s): T14.8XXA - OTHER INJURY OF UNSPECIFIED BODY REGION, INITIAL ENCOUNTER; L08.9 - LOCAL INFECTION OF THE SKIN AND SUBCUTANEOUS TISSUE, UNSP SNOMED Code(s): 57435056 Plan: 1patient with extensive right diabetic foot infection with evidence of necrosis and foul-smelling drainage send significant deep wound concerning for osteo myelitis and will need to cover for the polymicrobial stacy usually associated with the diabetic foot infection 2Positive blood culture with corynebacterium likely skin contamination 3patient has been evaluated by vascular surgery and is status post debridement and deep culture was growing Streptococcus and Proteus that is resistant to Unasyn. Also growing Providencia and acinetobacter Iwoffi along with atenolol 4patient continue with Zosyn will need long-term course of IV antibiotic on discharge Dictation was produced using [employer] dictation software. please excuse any grammatical, word or spelling errors. Time with Patient: Less than 30
--- NOTE | 2023-05-21 14:26 | P.PN ---
Subjective Progress Note Date: 05/21/23 Principal diagnosis: R diabetic foot/osteomyelitis Patient is a 52-year-old male with a past medical history significant for right heel diabetic foot infection with an episode of osteomyelitis. Patient completed his antibiotic therapy now presenting back to the hospital with worsening wound, the patient did have a surgical debridement of the right heel wound completed on 01/14/2023 On today's evaluation that is 05/21/2023, the patient remains to be afebrile, the patient is breathing comfortably on room air without the need for supplemental oxygen and denies any shortness of breath, the patient denies having any chest pain or cough, patient denies nausea/vomiting /diarrhea and no abdominal pain, , the patient denies pain to the right foot wound area. Patient did have a white count of 15.4 as of 05/15/2023 creatinine is 2.74, Objective - Vital Signs Vital signs: Vital Signs Temp 97.6 F 05/21/23 11:42 Pulse 84 05/21/23 13:07 Resp 14 05/21/23 11:42 BP 90/60 05/21/23 11:42 Pulse Ox 96 05/21/23 11:42 FiO2 Intake & Output 05/20/23 05/21/23 05/21/23 18:59 06:59 18:59 Intake Total 900 239.388 118 Output Total 150 Balance 750 239.388 118 Weight 111.3 kg Intake: Intake, IV Titration 239.388 Amount DOBUTamine DRIP 500 mg In 239.388 Dextrose/Water 1 250ml. bag @ 2.5 MCG/KG/MIN 8. 663 mls/hr IV .Q24H [facility] Rx#:[id number] Oral 900 118 Output: Urine 150 Other: Voiding Method Toilet Toilet Toilet Urinal Urinal Urinal - Exam GENERAL DESCRIPTION: Middle-age male lying in bed in no distress RESPIRATORY SYSTEM: Unlabored breathing , decreased breath sounds at bases HEART: S1 S2 regular rate and rhythm ,no loud murmurs ABDOMEN: Soft , no tenderness EXTREMITIES: Right foot is currently dressed no drainage on the dressing - Labs CBC & Chem 7: 05/15/23 05:53 05/21/23 11:26 Labs: Abnormal Lab Results - Last 24 Hours (Table) 05/20/23 05/20/23 05/21/23 Range/Units 16:53 20:04 06:06 Sodium (137-145) mmol/L Carbon Dioxide (22-30) mmol/L BUN (9-20) mg/dL Creatinine (0.66-1.25) mg/dL Glucose (74-99) mg/dL POC Glucose (mg/dL) 115 H 162 H 123 H (70-110) mg/dL 05/21/23 05/21/23 Range/Units 11:26 11:30 Sodium 134 L (137-145) mmol/L Carbon Dioxide 20 L (22-30) mmol/L BUN 88 H (9-20) mg/dL Creatinine 2.74 H (0.66-1.25) mg/dL Glucose 137 H (74-99) mg/dL POC Glucose (mg/dL) 126 H (70-110) mg/dL Microbiology - Last 24 Hours (Table) 05/20/23 07:56 Blood Culture - Preliminary Blood 05/16/23 17:06 Gram Stain - Final Heel - Right Tissue Culture - Final Providencia rustigianii Acinetobacter lwoffi grp 05/14/23 17:05 Blood Culture Gram Stain - Final Blood Blood Culture - Final Corynebacterium species Assessment and Plan (1) Foot osteomyelitis, right Current Visit: Yes Status: Acute Code(s): M86.9 - OSTEOMYELITIS, UNSPECIFIED SNOMED Code(s): 7117460483858901 (2) Type 2 diabetes mellitus with right diabetic foot ulcer Current Visit: Yes Status: Acute Code(s): E11.621 - TYPE 2 DIABETES MELLITUS WITH FOOT ULCER; L97.519 - NON-PRS CHRONIC ULCER OTH PRT RIGHT FOOT W UNSP SEVERITY SNOMED Code(s): 919205288 (3) Wound infection Current Visit: Yes Status: Acute Code(s): T14.8XXA - OTHER INJURY OF UNSPECIFIED BODY REGION, INITIAL ENCOUNTER; L08.9 - LOCAL INFECTION OF THE SKIN AND SUBCUTANEOUS TISSUE, UNSP SNOMED Code(s): 00955077 Plan: 1patient with extensive right diabetic foot infection with evidence of necrosis and foul-smelling drainage send significant deep wound concerning for osteomyelitis and will need to cover for the polymicrobial stacy usually associated with the diabetic foot infection 2Positive blood culture with corynebacterium likely skin contamination 3patient has been evaluated by vascular surgery and is status post debridement and deep culture was growing Streptococcus and Proteus that is resistant to Unasyn. Also growing Providencia and acinetobacter Iwoffi along with atenolol 4patient continue with Zosyn will need a PICC line for outpatient IV a ntibiotics plan for at least 6 weeks of Zosyn local care to continue per vascular surgery Dictation was produced using [email or web address] dictation software. please excuse any grammatical, word or spelling errors. Time with Patient: Less than 30
[2023-05-21] MEDS ORDERED: BUMETANIDE 0.25 MG/ML 4 ML VIAL IV SCH (16:00)
[2023-05-21] MEDS: BUMETANIDE 0.25 MG/ML 10 ML VIAL IV SCH (16:40)
[2023-05-21 17:11] LABS: Glucose,Whole Blood 110 mg/dL (70-110)
[2023-05-21] MEDS: MORPHINE SULFATE IR 15 MG TABLET PO PRN (17:30)
[2023-05-21] MEDS: DOBUTamine DRIP 500 MG in DEXTROSE/WATER 1 250ML.BAG IV SCH (20:03)
[2023-05-21 20:06] LABS: Glucose,Whole Blood 137 mg/dL (70-110)
[2023-05-22] MEDS: DOBUTamine DRIP 500 MG in DEXTROSE/WATER 1 250ML.BAG IV SCH ×2 (03:13→23:56)
[2023-05-22 06:28] LABS: Glucose,Whole Blood 103 mg/dL (70-110)
[2023-05-22] MEDS: MIDODRINE 5 MG TAB PO SCH ×3 (06:28→16:39)
[2023-05-22] MEDS: INSULIN ASPART (NovoLOG) 100 UNIT/ML VIAL SQ SCH ×4 (06:28→20:18)
[2023-05-22] MEDS: INSULIN DETEMIR (LEVEMIR) 100 UNIT/ML SYR SQ SCH (06:29)
[2023-05-22] MEDS: ASPIRIN 81 MG PO SCH (08:37)
[2023-05-22] MEDS: ATORVASTATIN 40 MG TAB PO SCH (08:38)
[2023-05-22] MEDS: CYCLOBENZAPRINE 10 MG TAB PO SCH ×4 (08:38→21:14)
[2023-05-22] MEDS: DULoxetine HCL 60 MG CAPSULE.DR PO SCH ×2 (08:39→20:26)
[2023-05-22] MEDS: SPIRONOLACTONE 25 MG TAB PO SCH (08:40)
[2023-05-22] MEDS: hydrALAZINE HCL 10 MG TAB PO SCH ×3 (08:40→20:26)
[2023-05-22] MEDS: ISOSORBIDE DINITRATE 10 MG TAB PO SCH ×3 (08:43→20:26)
[2023-05-22] MEDS: metOLazone 5 MG TAB PO SCH (08:48)
[2023-05-22] MEDS: PIPERACILLIN-TAZOBACTAM 3.375 GM in SODIUM CHLORIDE 0.9% 100 ML IVPB SCH ×2 (09:30→16:35)
[2023-05-22] MEDS: BUMETANIDE 0.25 MG/ML 10 ML VIAL IV SCH ×2 (09:49→16:35)
[2023-05-22] MEDS: NICOTINE 14MG/24HR PATCH TRANSDERM SCH (09:49)
[2023-05-22 11:35] LABS: Glucose,Whole Blood 101 mg/dL (70-110)
[2023-05-22 11:42] LABS: African American GFR (CKD) 32 (>60 ml/min/1.73 sqM); Anion Gap 15 mmol/L; Blood Urea Nitrogen 85 mg/dL (9-20); Calcium 8.7 mg/dL (8.4-10.2); Carbon Dioxide 25 mmol/L (22-30); Chloride 95 mmol/L (98-107); Glucose 114 mg/dL (74-99); Non-African American GFR(CKD) 28 (>60 ml/min/1.73 sqM); Potassium 4.8 mmol/L (3.5-5.1); Sodium 135 mmol/L (137-145)
--- NOTE | 2023-05-22 12:47 | P.PN ---
Subjective Progress Note Date: 05/22/23 History of present illness: This is a 52-year-old male patient of Dr. Yared Abbasi with past medical history of nonischemic cardiomyopathy, hypertension, dyslipidemia, status post AICD, diabetes. We have been asked to evaluate the patient for run of V. tach. Patient has presented to the hospital due to right heel diabetic foot ulcer with osteomyelitis status post debridement. Patient had a run of nonsustained ventricular tachycardia of 13 beats. He does have AICD as noted above. Patient denies having any chest pain. Noted that patient has now been resumed on Entresto due to hypotension. Patient is currently on IV Lasix 60 mg every 12 hours. Sodium 136, potassium 4.3, BUN 67 creatinine 2.05. WBC 15.4, hemoglobin 12.4. Home cardiac medications: Lasix 80 mg twice daily, Entresto 24 mg26 mg twice daily, Aldactone 25 mg daily [address] [facility] Echocardiogram 06/2022 revealed EF less than 20% with global hypokinesia. Progress Note Date: 05/19/23 Progress note: Patient's creatinine has continued to decline on diuretic therapy. His EF is 10-15%. Creatinine 1.5-on admission, with diuretic therapy creatinine has increased to 2.91. I will start him on low-dose dobutamine running at 5 mcg/h. Transfer patient to [address] [place], [place] [id number]. BP 91/67, Urine output was not documented accurately 05/20 Patient is seen today on the cardiac stepdown unit. Patient was started on dobutamine drip yesterday he states is urinating about the same amount yesterday yesterday. He continues to have edema up into the thigh area and also having acute kidney injury. In general he feels he is okay. No significant pain in his foot. Blood pressure 91/57, heart rate in the 70s, afebrile, pulse ox 96% on room air. BUN 80 creatinine 2.74. Nephrology is switching patient to Bumex drip. 05/21 The patient does not appear to be urinating very much for not all of his output is being measured as he is sometimes using the bathroom. Patient is currently on dobutamine drip at 2.5 g, Bumex 2 mg IV twice daily and Aldactone 12.5 mg daily. Yesterday we added in Isordil, metolazone and hydralazine. Systolic blood pressures of been in the 90s, heart rates in the 60s to 80s. Repeat blood work reveals BUN 88 and creatinine 2.74. 05/22 Patient is seen today in follow-up. He is continued on dopamine drip currently at 5 g, Bumex was increased yesterday to 3 mg IV twice daily and patient has been continued on Isordil metolazone and Aldactone. Patient has had improvement in his weight down 4 kg. I&O's do not appear to be accurate. Systolic blood pressure running in the 90s, pulse ox 90% on room air, heart rate anywhere from 66-95. Repeat blood work reveals improving of the renal function with a BUN of 85 creatinine 2.5 Physical examination: Gen: This is a 52-year-old male. He is resting in bed and appears comfortable and in no acute distress. VS: reviewed HEENT: Head is atraumatic, normocephalic. Pupils equal, round. Sclerae is anicteric. NECK: Supple. No JVD. LUNGS: Clear to auscultation. No wheezes or rhonchi. No intercostal retra ctions. HEART: Regular rate and rhythm. No murmur. ABDOMEN: Soft No tenderness. EXTREMITIES: Dressing on the right foot. 23 plus pedal edema. No calf tenderness. NEUROLOGICAL: Patient is awake, alert and oriented x3. Assessment: Cardiogenic shock cardiorenal syndrome Acute systolic heart failure exacerbation Nonsustained ventricular tachycardia, expected Diabetic foot ulcer Nonischemic cardiomyopathy EF 20%, status post AICD Hypertension Dyslipidemia Type II Diabetes Smoker, No compliance Plan: Continue patient on dobutamine drip Continue Aldactone 12.5 mg daily Stop Metoprolol due to cardiorenal Continue patient on Isordil 10 mg 3 times daily, metolazone 5 mg daily to reduce afterload Continue Bumex to 3 mg IV twice daily Follow kidney function tomorrow, once kidney function improves, Do not give midodrine until SBP is less than 80 and mean arterial pressure is less than 60 mmHg Poor prognosis. Nurse practitioner note has been reviewed, I agree with the documented findings and plan of care. Patient was seen and examined. Objective - Vital Signs Vital signs: Vital Signs Temp 97.8 F 05/22/23 08:00 Pulse 95 05/22/23 08:40 Resp 16 05/22/23 08:40 BP 103/72 05/22/23 08:00 Pulse Ox 98 05/22/23 08:00 FiO2 Intake & Output 05/21/23 05/22/23 05/22/23 18:59 06:59 18:59 Intake Total 236 724 Output Total 800 1400 Balance -564 -676 Weight 111.3 kg Intake: Intake, IV Titration 250 Amount DOBUTamine DRIP 500 mg In 250 Dextrose/Water 1 250ml. bag @ 5 MCG/KG/MIN 17.325 mls/hr IV .[id number] [facility] Rx#:[id number] Oral 236 474 Output: Urine 800 1400 Other: Voiding Method Toilet Toilet Toilet Urinal Urinal Urinal # Voids 1 # Bowel Movements 1 1 - Labs CBC & Chem 7: 05/15/23 05:53 05/22/23 10:19 Labs: Abnormal Lab Results - Last 24 Hours (Table) 05/21/23 05/21/23 05/21/23 Range/Units 11:26 11:30 20:05 Sodium 134 L (137-145) mmol/L Carbon Dioxide 20 L (22-30) mmol/L BUN 88 H (9-20) mg/dL Creatinine 2.74 H (0.66-1.25) mg/dL Glucose 137 H (74-99) mg/dL POC Glucose (mg/dL) 126 H 137 H (70-110) mg/dL Microbiology - Last 24 Hours (Table) 05/20/23 07:56 Blood Culture - Preliminary Blood
[2023-05-22 16:57] LABS: Glucose,Whole Blood 93 mg/dL (70-110)
--- NOTE | 2023-05-22 18:37 | P.PN ---
Progress Note - Text Progress Note Date: 05/22/23 Chief Complaint: Right foot wound This is a 52-year-old patient, follows with Dr. Rodríguez. Chronic stable medical condition include CHF EF less than 20%, COPD, diabetes mellitus type 2, hypertension, hyperlipidemia, obstructive sleep apnea, anxiety, AICD, lower extremity venous insufficiency. Patient had lower extremity wounds and has been followed by ID and Dr. Lugo from vascular. Patient has not been able to make a wound care center regularly because of transportation issues. Now presents with worsening wound on the right foot. Has had previous debridement of same. It is draining. Somewhat foul-smelling.. Patient had some chills. May 15: Patient had right foot wound debridement with Dr. Lugo. Currently in dressing. Patient received IV fluids from the ER. Stop the same. IV Lasix. Patient is on IV Unasyn and IV vancomycin per ID. Significant edema. May 16: IV Lasix 60 mg every 12. Unclear if he is making much urine. IV vancomycin was discontinued yesterday because of renal function. Some decrease in edema. Oral intake good. IV Unasyn. Being followed by ID. May 17: Making good urine. I's and O not well documented. Remains on IV Lasix 60:12. Still a significant edema. Breathing is stable. IV Unasyn. Creatinine 2.05. I discussed with Dr. Lugo from vascular. Patient might need a amputation down the road. Patient has several social issues going on. May 18: Patient placed on IV Bumex. Making urine. Significant edema present. Breathing much better. Creatinine going up. Being followed by cardiology and nephrology. May 19: Today remains on IV Bumex 2 mg every 12. We started on dobutamine drip and both the cardiology selective floor. IV Zosyn to continue. Tolerating diet well. Breathing stable. Lower extremity edema. Creatinine worsening May 20: Patient is moved to the selective cardiology floor. Remains on IV dobutamine. An IV Bumex bolus. Urine output. Noted tolerating diet. Also on Zaroxolyn. Creatinine has plateaued off May 21: Tired. Oral intake fair. Remains on IV dobutamine drip and IV Bumex and bolus. Making urine. Some improvement in creatinine. Remains on IV Zosyn. May 22: Bumex was increased to 3 mg twice a day to yesterday. Remains on dobutamine drip. IV Zosyn. Oral intake fair. Slight improvement in creatinine. Slight improvement in edema. Active Medications Acetaminophen (Acetaminophen Tab 325 Mg Tab) 650 mg PO Q6HR PRN PRN Reason: Mild Pain or Fever > 100.5 Albuterol Sulfate (Albuterol Nebulized 2.5 Mg/3 Ml) 2.5 mg INHALATION RT-QID PRN PRN Reason: Shortness Of Breath Last Admin: 05/21/23 12:58 Dose: 2.5 mg Alprazolam (Alprazolam 0.25 Mg Tab) 0.25 mg PO Q6HR PRN PRN Reason: Anxiety Aspirin (Aspirin 81 Mg) 81 mg PO DAILY [facility] Last Admin: 05/22/23 08:37 Dose: 81 mg Atorvastatin Calcium (Atorvastatin 40 Mg Tab) 40 mg PO DAILY [facility] Last Admin: 05/22/23 08:38 Dose: 40 mg Bumetanide (Bumetanide 0.25 Mg/Ml 10 Ml Vial) 3 mg IV 0900,1600 [facility] Last Admin: 05/22/23 16:35 Dose: 3 mg Calcium Carbonate/Glycine (Calcium Carbonate 500 Mg Chewable) 1,000 mg PO Q4HR PRN PRN Reason: Dyspepsia Cyclobenzaprine HCl (Cyclobenzaprine 10 Mg Tab) 10 mg PO QID [facility] Last Admin: 05/22/23 18:33 Dose: 10 mg Dextrose/Water (Dextrose 50% Syringe 50 Ml) 25 ml IVP PER PROTOCOL PRN; Protocol PRN Reason: Hypoglycemia Dextrose/Water (Dextrose 50% Syringe 50 Ml) 50 ml IVP PER PROTOCOL PRN; Pr otocol PRN Reason: Hypoglycemia Duloxetine HCl (Duloxetine Hcl 60 Mg Capsule.Dr) 60 mg PO BID [facility] Last Admin: 05/22/23 08:39 Dose: 60 mg Hydralazine HCl (Hydralazine Hcl 10 Mg Tab) 10 mg PO TID [facility] Last Admin: 05/22/23 16:35 Dose: 10 mg Piperacillin Sod/Tazobactam (Sod 3.375 gm/ Sodium Chloride) 100 mls @ 25 mls/hr IVPB Q8HR [facility]; Protocol Last Admin: 05/22/23 16:35 Dose: 25 mls/hr Dobutamine HCl/Dextrose 500 mg (/ IV Solution) 250 mls @ 17.325 mls/hr IV .[id number] [facility] Last Admin: 05/22/23 03:13 Dose: 2.5 mcg/kg/min, 8.663 mls/hr Insulin Aspart (Insulin Aspart (Novolog) 100 Unit/Ml Vial) 0 unit SQ ACHS [facility]; Protocol Last Admin: 05/22/23 17:16 Dose: Not Given Insulin Detemir (Insulin Detemir (Levemir) 100 Unit/Ml Syr) 20 unit SQ DAILY@0700 [facility] Last Admin: 05/22/23 06:29 Dose: 20 unit Isosorbide Dinitrate (Isosorbide Dinitrate 10 Mg Tab) 10 mg PO TID [facility] Last Admin: 05/22/23 16:35 Dose: 10 mg Lactulose (Lactulose 20 Gm/30 Ml Cup) 20 gm PO DAILY PRN PRN Reason: Constipation Last Admin: 05/19/23 10:14 Dose: 20 gm Melatonin (Melatonin 3 Mg Tablet) 3 mg PO HS PRN PRN Reason: Insomnia Metolazone (Metolazone 5 Mg Tab) 5 mg PO DAILY [facility] Last Admin: 05/22/23 08:48 Dose: 5 mg Midodrine (Midodrine 5 Mg Tab) 5 mg PO AC-TID [facility] Last Admin: 05/22/23 16:39 Dose: Not Given Morphine Sulfate (Morphine Sulfate 4 Mg/Ml Syringe) 4 mg IV Q4HR PRN PRN Reason: Severe Pain (Scale 7 to 10) Morphine Sulfate (Morphine Sulfate Ir 15 Mg Tablet) 30 mg PO QID PRN PRN Reason: Analgesia Last Admin: 05/21/23 17:30 Dose: 30 mg Naloxone HCl (Naloxone 0.4 Mg/Ml 1 Ml Vial) 0.2 mg IV Q2M PRN PRN Reason: Opioid Reversal Nicotine (Nicotine 14mg/24hr Patch) 1 patch TRANSDERM DAILY [facility] Last Admin: 05/22/23 09:49 Dose: 1 patch Ondansetron HCl (Ondansetron 4 Mg/2 Ml Vial) 4 mg IVP Q8HR PRN PRN Reason: Nausea And Vomiting Last Admin: 05/18/23 12:20 Dose: 4 mg Silver Sulfadiazine (Silver Sulfadiazine 1% Cream 25 Gm Tube) 1 applic TOPICAL BID [facility]; Protocol Last Admin: 05/22/23 16:37 Dose: 1 applic Spironolactone (Spironolactone 25 Mg Tab) 12.5 mg PO DAILY [facility] Last Admin: 05/22/23 08:40 Dose: 12.5 mg Zolpidem Tartrate (Zolpidem 5 Mg Tab) 10 mg PO HS PRN PRN Reason: Insomnia Social history: Lives with his 20-year-old son. Disabled. 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 Smoking 2 packs a day for most of his life now down to half a pack a day. Stop drinking heavy alcohol about 20 years ago. Has done marijuana. Physical examination: VITAL SIGNS: 98, 84, 18, 93/59, 97% room air GENERAL: Sitting at edge of the bed, tired EYES: Pupils equal. Conjunctiva normal. HEENT: External appearance of nose and ears normal, oral cavity grossly normal. NECK: JVD unable to assess; masses not palpable. HEART: First and second heart sounds are normal; some decrease in edema LUNGS: Respiratory rate normal; diminished breath sounds ABDOMEN: Soft, nontender, liver spleen not palpable, no masses palpable. PSYCH: Alert and oriented x3; mood and affect tired MUSCULOSKELETAL:No Clubbing/cyanosis;muscles-grossly intact DERMATOLOGICAL: Right foot wound-dressing. More details - nursing notes. INVESTIGATIONS, reviewed in the clinical context: May 22: Potassium 4.8 BUN 85 creatinine 2.5 for May 19: Potassium 4.8 BUN 78 creatinine 2.91 May 18: Potassium 4.7 bicarb 21. 72 creatinine 2.64 Wound culture: Proteus vulgaris. Streptococcus agalactiae group B May 15: White count 15.4 hemoglobin 12.4 potassium 3.7 BUN 59 creatinine 1.55 05/14/2023: White count 15 hemoglobin 13 platelets 254 sodium 134 potassium 4.2 BUN 58 creatinine 1.23 lactic acid 2.6 Assessment and plan: -Acute right lower leg cellulitis, infected right heel diabetic ulcer with prior history of debridement. Has not been able to follow the wound care center because of transport. Wound swab for Gram stain and culture. Proteus vulgaris, Streptococcus agalactiae group B IV Unasyn Underwent debridement by Dr. Lugo Followed by ID and Dr. Lugo from vascular. -Sepsis from right leg wound. IV Unasyn Hold off IV fluids because of CHF. -Acute on chronic congestive heart failure nonischemic cardiomyopathy systolic dysfunction EF less than 20%: Slow to respond IV Bumex 3 mg every 12.. Aldactone 12.5 mg . Entresto-hold because of renal function Zaroxolyn 5 mg. continue dobutamine drip. AICD. Being followed by cardiology and nephrology - COPD current smoker Ventolin. -Diabetes mellitus type 2 chronically on insulin, uncontrolled with hyperglycemia and hypoglycemia. Levemir 20 units subcu daily . Diabetic diet. Accu-Cheks and sliding scale -Hyperlipidemia -Chronic kidney disease stage III from diabetic nephropathy and nephrosclerosis Baseline creatinine of 1.2 on May 14. -Acute kidney injury likely ATN from cardiorenal syndrome and possible vancomycin: Slow to respond Follow renal function. Entresto held Nephrology following -Essential hypertension Entresto-hold for now -Obstructive sleep apnea sometimes uses CPAP machine -Diabetic peripheral neuropathy -Anxiety Ativan when necessary -DJD Tylenol when necessary -Chronic nicotine dependence patient cigarette smoker Nicotine patch 14 -AICD -Lower extremity chronic venous insufficiency IV Bumex increased to 3 mg twice a day.. . Dobutamine drip . IV Zosyn. Wound care. Discussed with patient.
[2023-05-22 20:19] LABS: Glucose,Whole Blood 146 mg/dL (70-110)
--- NOTE | 2023-05-22 20:51 | P.PN ---
Subjective Patient is seen for f/u for ANGY. Started on dobutamine drip due to worsening renal function and significant volume overload. Serum creatinine slightly improved to 2.5 mg/dL. Urine output increased to 2.2L and weight has decreased. Bumex increased to 3mg bid and dobutamine increased to 5mcg/kg/min No significant complaints today. Objective - Vital Signs Vital signs: Vital Signs Temp 98.0 F 05/22/23 16:00 Pulse 84 05/22/23 16:00 Resp 18 05/22/23 16:00 BP 93/59 05/22/23 16:00 Pulse Ox 97 05/22/23 16:00 FiO2 Intake & Output 05/22/23 05/22/23 05/23/23 06:59 18:59 06:59 Intake Total 724 1020 Output Total 1400 1400 Balance -676 1020 -1400 Intake: Intake, IV Titration 250 Amount DOBUTamine DRIP 500 mg In 250 Dextrose/Water 1 250ml. bag @ 5 MCG/KG/MIN 17.325 mls/hr IV .[id number] [facility] Rx#:[id number] Oral 474 1020 Output: Urine 1400 1400 Other: Voiding Method Toilet Toilet Urinal Urinal # Bowel Movements 1 - Exam Awake, comfortable. Patient is awake. Ounces questions appropriately Lungs show decreased breath sounds at bases CVS S1 and S2 Abdomen is soft, non tender. Ext. 3+ edema bilaterally, right leg is wrapped, right worse than left [employer] exam grossly intact - Labs CBC & Chem 7: 05/15/23 05:53 05/22/23 10:19 Labs: Abnormal Lab Results - Last 24 Hours (Table) 05/22/23 05/22/23 Range/Units 10:19 20:18 Sodium 135 L (137-145) mmol/L Chloride 95 L (98-107) mmol/L BUN 85 H (9-20) mg/dL Creatinine 2.54 H (0.66-1.25) mg/dL Glucose 114 H (74-99) mg/dL POC Glucose (mg/dL) 146 H (70-110) mg/dL Microbiology - Last 24 Hours (Table) 05/20/23 07:56 Blood Culture - Preliminary Blood 05/15/23 16:20 Gram Stain - Final Heel - Right Tissue Culture - Final Proteus vulgaris Strep agalactiae - (group b) Assessment and Plan Assessment: 1. Acute kidney injury secondary to ATN secondary to hypotension and cardiorenal syndrome. Creatinine 1.23 on admission. Maintained on dobutamine drip. Continue with the Bumex. Renal function improved 2. Acute on chronic systolic CHF with ejection fraction of less than 20% with moderate to severe mitral regurgitation, moderate tricuspid regurgitation and severe pulmonary hypertension noted on echocardiogram done in June 2022. 3. Volume overload. 4. Right foot wound being followed by vascular surgery and infectious disease. Status post debridement. On antibiotics. 5. Diabetes mellitus. Plan: Continue with dobutamine infusion Continue with IV Bumex and low-dose Aldactone. Consider bumex drip if weight not further decreased. Continue with midodrine. Repeat labs in a.m.
[2023-05-23] MEDS: PIPERACILLIN-TAZOBACTAM 3.375 GM in SODIUM CHLORIDE 0.9% 100 ML IVPB SCH ×3 (01:12→17:27)
[2023-05-23] MEDS: MIDODRINE 5 MG TAB PO SCH ×3 (06:19→17:24)
[2023-05-23] MEDS: INSULIN ASPART (NovoLOG) 100 UNIT/ML VIAL SQ SCH ×4 (06:19→21:18)
[2023-05-23 06:20] LABS: Glucose,Whole Blood 115 mg/dL (70-110)
[2023-05-23] MEDS ORDERED: LIDOCAINE 1% INJ 10MG/ML (20 ML MDV) SQ ONE (08:29)
--- NOTE | 2023-05-23 08:37 | P.OP ---
Date of Procedure: 05/23/23 Description of Procedure: Preoperative Diagnosis: Need for long-term IV antibiotic access. Postoperative Diagnosis: Same. Procedure(s) Performed: Ultrasound-guided cannulation right cephalic vein. Insertion of peripherally inserted central catheter under fluoroscopic guidance. Anesthesia: local 1% lidocaine kalia Surgeon: Tammy Estimated Blood Loss (ml): 5 IV fluids (ml): 0 Urine output (ml): 0 Pathology: none sent Condition: stable Disposition: no change Indications for Procedure: Patient requires long-term IV antibiotics as an outpatient patient is offered a PICC line to allow for intravenous administration of antibiotics. Description of Procedure: Patient was brought to the special procedure suite. The right upper extremity sterilely prepped and draped in usual manner. Ultrasound was utilized to identify the cephalic vein which was normally compressible free of visible thrombus. Permenant image was stored. 1% Xylocaine was utilized for local anesthesia tissues overlying the vein. Through this anesthetized area and with the aid of ultrasound a micropuncture needle was utilized to cannulate the vein. Once cannulated, Softip guidewire was advanced into the vein. The needle was withdrawn and a micropuncture sheath and dilator advanced over the guidewire. The guidewire was withdrawn and exchanged for the PICC guidewire and measured 43 cm to the cavoatrial junction. The catheter was cut to size and advanced into the cavoatrial junction without resistance. The sheath was peeled away. Blood was easily withdrawn through the catheter and the catheter was then flushed with heparinized saline solution and secured to the skin. Patient tolerated procedure well and was returned to their room in satisfactory and stable condition.
--- NOTE | 2023-05-23 08:52 | IR ---
EXAMINATION TYPE: IR cvc insert >=5 years DATE OF EXAM: 05/23/2023 COMPARISON: 11/26/2022 HISTORY: Antibiotics. Fluoroscopy time. Fluoroscopy was provided to the referring clinician.
[2023-05-23] MEDS: INSULIN DETEMIR (LEVEMIR) 100 UNIT/ML SYR SQ SCH (09:57)
[2023-05-23] MEDS: BUMETANIDE 0.25 MG/ML 10 ML VIAL IV SCH (09:57)
[2023-05-23] MEDS: ATORVASTATIN 40 MG TAB PO SCH (09:58)
[2023-05-23] MEDS: ASPIRIN 81 MG PO SCH (09:58)
[2023-05-23] MEDS: SPIRONOLACTONE 25 MG TAB PO SCH (09:58)
[2023-05-23] MEDS: DULoxetine HCL 60 MG CAPSULE.DR PO SCH ×2 (09:58→21:18)
[2023-05-23] MEDS: CYCLOBENZAPRINE 10 MG TAB PO SCH ×4 (09:58→21:18)
[2023-05-23] MEDS: metOLazone 5 MG TAB PO SCH (09:58)
[2023-05-23] MEDS: NICOTINE 14MG/24HR PATCH TRANSDERM SCH (09:59)
[2023-05-23] MEDS: DOBUTamine DRIP 500 MG in DEXTROSE/WATER 1 250ML.BAG IV SCH (10:06)
[2023-05-23] MEDS: ISOSORBIDE DINITRATE 10 MG TAB PO SCH ×3 (10:08→21:18)
[2023-05-23] MEDS: hydrALAZINE HCL 10 MG TAB PO SCH ×3 (10:08→21:18)
[2023-05-23 11:29] LABS: Glucose,Whole Blood 164 mg/dL (70-110)
--- NOTE | 2023-05-23 11:59 | P.PN ---
Subjective Progress Note Date: 05/23/23 52-year-old patient, follows with Dr. Rodríguez. Chronic stable medical condition include CHF EF less than 20%, COPD, diabetes mellitus type 2, hypertension, hyperlipidemia, obstructive sleep apnea, anxiety, AICD, lower extremity venous insufficiency. Patient had lower extremity wounds and has been followed by ID and Dr. Lugo from vascular. Patient has not been able to make a wound care center regularly because of transportation issues. Now presents with worsening wound on the right foot. Has had previous debridement of same. It is draining. Somewhat foul-smelling.. Patient had some chills. May 15: Patient had right foot wound debridement with Dr. Lugo. Currently in dressing. Patient received IV fluids from the ER. Stop the same. IV Lasix. Patient is on IV Unasyn and IV vancomycin per ID. Significant edema. May 16: IV Lasix 60 mg every 12. Unclear if he is making much urine. IV vancomycin was discontinued yesterday because of renal function. Some decrease in edema. Oral intake good. IV Unasyn. Being followed by ID. May 17: Making good urine. I's and O not well documented. Remains on IV Lasix 60:12. Still a significant edema. Breathing is stable. IV Unasyn. Creatinine 2.05. I discussed with Dr. Lugo from vascular. Patient might need a amputation down the road. Patient has several social issues going on. May 18: Patient placed on IV Bumex. Making urine. Significant edema present. Breathing much better. Creatinine going up. Being followed by cardiology and nephrology. May 19: Today remains on IV Bumex 2 mg every 12. We started on dobutamine drip and both the cardiology selective floor. IV Zosyn to continue. Tolerating diet well. Breathing stable. Lower extremity edema. Creatinine worsening May 20: Patient is moved to the selective cardiology floor. Remains on IV dobutamine. An IV Bumex bolus. Urine output. Noted tolerating diet. Also on Zaroxolyn. Creatinine has plateaued off May 21: Tired. Oral intake fair. Remains on IV dobutamine drip and IV Bumex and bolus. Making urine. Some improvement in creatinine. Remains on IV Zosyn. May 22: Bumex was increased to 3 mg twice a day to yesterday. Remains on dobutamine drip. IV Zosyn. Oral intake fair. Slight improvement in creatinine. Slight improvement in edema. May 23: Patient seen and evaluated bedside, continue patient on Bumex and dobutamine drip, on IV antibiotic patient is alert and oriented 3 does have lower extremity edema, and remains on room air hypotensive systolic pressure ranging from 8200 with map of 65, serum chemistry pending continued to follow up on CBC and basic metabolic panel Objective - Vital Signs Vital signs: Vital Signs Temp 98.2 F 05/23/23 08:45 Pulse 88 05/23/23 08:45 Resp 18 05/23/23 08:45 BP 83/56 05/23/23 08:45 Pulse Ox 98 05/23/23 08:45 FiO2 Intake & Output 05/22/23 05/23/23 05/23/23 18:59 06:59 18:59 Intake Total 1020 540 250 Output Total 2550 800 Balance 0 -550 Weight 103 kg Intake: Intake, IV Titration 250 Amount DOBUTamine DRIP 500 mg In 250 Dextrose/Water 1 250ml. bag @ 5 MCG/KG/MIN 17.325 mls/hr IV .[id number] ON LICENSE OF [facility] Rx#:[id number] Oral 1020 540 Output: Urine 2550 800 Other: Voiding Method Toilet Toilet Toilet Urinal Urinal Urinal # Voids 2 # Bowel Movements 1 - Exam PHYSICAL EXAMINATION: GENERAL: The patient is alert and oriented x3, ill appearance HEENT: Pupils are round and equally reacting to light. EOMI. CARDIOVASCULAR: S1 and S2 present. No murmurs, rubs, or gallops. , Leg edema PULMONARY: Decreased breath sounds bilaterally ABDOMEN: Soft, nontender, nondistended, normoactive bowel sounds. No palpable organomegaly. MUSCULOSKELETAL: No joint swelling or deformity. EXTREMITIES: No cyanosis, clubbing, or pedal edema. NEUROLOGICAL: Gross neurological examination did not reveal any focal deficits. SKIN: Bilateral lower extremity band - Labs CBC & Chem 7: 05/15/23 05:53 05/22/23 10:19 Labs: Abnormal Lab Results - Last 24 Hours (Table) 05/22/23 05/23/23 05/23/23 Range/Units 20:18 06:18 11:22 POC Glucose (mg/dL) 146 H 115 H 164 H (70-110) mg/dL Microbiology - Last 24 Hours (Table) 05/20/23 07:56 Blood Culture - Preliminary Blood 05/15/23 16:20 Gram Stain - Final Heel - Right Tissue Culture - Final Proteus vulgaris Strep agalactiae - (group b) Assessment and Plan Assessment: Assessment and plan * Diabetic foot ulcer with right lower extremity cellulitis * Sepsis secondary to diabetic foot ulcer * Acute on chronic congestive heart failure with ejection fraction 20% * COPD * Diabetes mellitus type 2 * Acute kidney injury on chronic kidney disease stage III suspect cardiorenal syndrome * History of anxiety * Chronic nicotine use * Diabetic neuropathy * In regards to diabetic foot ulcer patient seen by vascular, ID, had wound debridement and. Wound cultures show Proteus vulgaris, Streptococcus agalactiae group B, continue patient on IV antibiotics, on IV Zosyn * In regards to sepsis, blood cultures and wound cultures reviewed continue IV antibiotic * In regards to congestive heart failure continue patient on Bumex and dobutamine drip, monitor intake and output * In regards to renal failure nephrology following continue to monitor renal function while on diuresis * Prognosis is guarded secondary to multiple comorbidities
--- NOTE | 2023-05-23 12:01 | P.PN ---
Subjective Patient is seen for f/u for ANGY. Started on dobutamine drip due to worsening renal function and significant volume overload. Serum creatinine slightly improved to 2.5 mg/dL. Urine output increased to 2.5L and weight has decreased. No significant complaints today. Objective - Vital Signs Vital signs: Vital Signs Temp 98.2 F 05/23/23 08:45 Pulse 88 05/23/23 08:45 Resp 18 05/23/23 08:45 BP 83/56 05/23/23 08:45 Pulse Ox 98 05/23/23 08:45 FiO2 Intake & Output 05/22/23 05/23/23 05/23/23 18:59 06:59 18:59 Intake Total 1020 540 250 Output Total 2550 800 Balance 1019 Weight 103 kg Intake: Intake, IV Titration 250 Amount DOBUTamine DRIP 500 mg In 250 Dextrose/Water 1 250ml. bag @ 5 MCG/KG/MIN 17.325 mls/hr IV .[id number] [facility] Rx#:[id number] Oral 1020 540 Output: Urine 2550 800 Other: Voiding Method Toilet Toilet Toilet Urinal Urinal Urinal # Voids 2 # Bowel Movements 1 - Exam Awake, comfortable. Patient is awake. Answers questions appropriately Lungs show decreased breath sounds at bases CVS S1 and S2 Abdomen is soft, non tender. Ext. 3+ edema bilaterally, right leg is wrapped, right worse than left [employer] exam grossly intact - Labs CBC & Chem 7: 05/15/23 05:53 05/22/23 10:19 Labs: Abnormal Lab Results - Last 24 Hours (Table) 05/22/23 05/23/23 05/23/23 Range/Units 20:18 06:18 11:22 POC Glucose (mg/dL) 146 H 115 H 164 H (70-110) mg/dL Microbiology - Last 24 Hours (Table) 05/20/23 07:56 Blood Culture - Preliminary Blood 05/15/23 16:20 Gram Stain - Final Heel - Right Tissue Culture - Final Proteus vulgaris Strep agalactiae - (group b) Assessment and Plan Assessment: 1. Acute kidney injury secondary to ATN secondary to hypotension and cardiorenal syndrome. Creatinine 1.23 on admission. Maintained on dobutamine drip. Switch to Bumex drip. Renal function improved. 2. Acute on chronic systolic CHF with ejection fraction of less than 20% with moderate to severe mitral regurgitation, moderate tricuspid regurgitation and severe pulmonary hypertension noted on echocardiogram done in June 2022. 3. Volume overload. 4. Right foot wound being followed by vascular surgery and infectious disease. Status post debridement. On antibiotics. 5. Diabetes mellitus. Plan: Continue with dobutamine infusion Switched to Bumex drip Recheck weight as it appears to be inaccurate. Continue with midodrine. Repeat labs in a.m.
--- NOTE | 2023-05-23 13:06 | P.PN ---
Subjective History of present illness: This is a 52-year-old male patient of Dr. Yared Abbasi with past medical history of nonischemic cardiomyopathy, hypertension, dyslipidemia, status post AICD, diabetes. We have been asked to evaluate the patient for run of V. tach. Patient has presented to the hospital due to right heel diabetic foot ulcer with osteomyelitis status post debridement. Patient had a run of nonsustained ventricular tachycardia of 13 beats. He does have AICD as noted above. Patient denies having any chest pain. Noted that patient has now been resumed on Entresto due to hypotension. Patient is currently on IV Lasix 60 mg every 12 hours. Sodium 136, potassium 4.3, BUN 67 creatinine 2.05. WBC 15.4, hemoglobin 12.4. Home cardiac medications: Lasix 80 mg twice daily, Entresto 24 mg26 mg twice daily, Aldactone 25 mg daily [address] single-chamber ICD [facility] Echocardiogram 06/2022 revealed EF less than 20% with global hypokinesia. Progress Note Date: 05/19/23 Progress note: Patient's creatinine has continued to decline on diuretic therapy. His EF is 10-15%. Creatinine 1.5-on admission, with diuretic therapy creatinine has increased to 2.91. I will start him on low-dose dobutamine running at 5 mcg/h. Transfer patient to [address] [place] [address] telemetry. BP 91/67, Urine output was not documented accurately 05/20 Patient is seen today on the cardiac stepdown unit. Patient was started on dobutamine drip yesterday he states is urinating about the same amount yesterday yesterday. He continues to have edema up into the thigh area and also having acute kidney injury. In general he feels he is okay. No significant pain in his foot. Blood pressure 91/57, heart rate in the 70s, afebrile, pulse ox 96% on room air. BUN 80 creatinine 2.74. Nephrology is switching patient to Bumex drip. 05/21 The patient does not appear to be urinating very much for not all of his output is being measured as he is sometimes using the bathroom. Patient is currently on dobutamine drip at 2.5 g, Bumex 2 mg IV twice daily and Aldactone 12.5 mg daily. Yesterday we added in Isordil, metolazone and hydralazine. Systolic blood pressures of been in the 90s, heart rates in the 60s to 80s. Repeat blood work reveals BUN 88 and creatinine 2.74. 05/22 Patient is seen today in follow-up. He is continued on dopamine drip currently at 5 g, Bumex was increased yesterday to 3 mg IV twice daily and patient has been continued on Isordil metolazone and Aldactone. Patient has had improvement in his weight down 4 kg. I&O's do not appear to be accurate. Systolic blood pressure running in the 90s, pulse ox 90% on room air, heart rate anywhere from 66-95. Repeat blood work reveals improving of the renal function with a BUN of 85 creatinine 2.5 05/23 Patient seen and examined. Denies any SOB. Having some mild improvement in LE edema. Remains on dobutmaine drip at 2.5 and IV bumex and zaroxolyn. Cr mildly improved today. Physical examination: Gen: This is a 52-year-old male. He is resting in bed and appears comfortable and in no acute distress. VS: reviewed HEENT: Head is atraumatic, normocephalic. Pupils equal, round. Sclerae is anicteric. NECK: Supple. No JVD. LUNGS: Clear to auscultation. No wheezes or rhonchi. No intercostal retractions. HEART: Regular rate and rhythm. No murmur. ABDOMEN: Soft No tenderness. EXTREMITIES: Dressing on the right foot. 23 plus pedal edema. No calf ten derness. NEUROLOGICAL: Patient is awake, alert and oriented x3. Assessment: Cardiogenic shock cardiorenal syndrome Acute systolic heart failure exacerbation Nonsustained ventricular tachycardia, expected Diabetic foot ulcer Nonischemic cardiomyopathy EF 20%, status post AICD Hypertension Dyslipidemia Type II Diabetes Smoker, No compliance Plan: Increase dobutamine drip to 5 Continue Aldactone 12.5 mg daily Stop Metoprolol due to cardiorenal Continue patient on Isordil 10 mg 3 times daily, metolazone 5 mg daily to reduce afterload Continue IV Bumex, possible Bumex drip per nephrology Do not give midodrine until SBP is less than 80 and mean arterial pressure is less than 60 mmHg Poor prognosis. Objective - Vital Signs Vital signs: Vital Signs Temp 98.2 F 05/23/23 08:45 Pulse 88 05/23/23 08:45 Resp 18 05/23/23 08:45 BP 83/56 05/23/23 08:45 Pulse Ox 98 05/23/23 08:45 FiO2 Intake & Output 05/22/23 05/23/23 05/23/23 18:59 06:59 18:59 Intake Total 1020 540 250 Output Total 2550 1800 Balance 1019 Weight 103 kg Intake: Intake, IV Titration 250 Amount DOBUTamine DRIP 500 mg In 250 Dextrose/Water 1 250ml. bag @ 5 MCG/KG/MIN 17.325 mls/hr IV .[id number] [facility] Rx#:[id number] Oral 1020 540 Output: Urine 2550 1800 Other: Voiding Method Toilet Toilet Toilet Urinal Urinal Urinal # Voids 2 # Bowel Movements 1 - Labs CBC & Chem 7: 05/15/23 05:53 05/22/23 10:19 Labs: Abnormal Lab Results - Last 24 Hours (Table) 05/22/23 05/23/23 05/23/23 Range/Units 20:18 06:18 11:22 POC Glucose (mg/dL) 146 H 115 H 164 H (70-110) mg/dL Microbiology - Last 24 Hours (Table) 05/20/23 07:56 Blood Culture - Preliminary Blood 05/15/23 16:20 Gram Stain - Final Heel - Right Tissue Culture - Final Proteus vulgaris Strep agalactiae - (group b)
[2023-05-23] MEDS: BUMETANIDE 10 MG in DEXTROSE 5% IN WATER 60 ML IV SCH ×4 (13:38→21:18)
[2023-05-23 16:38] LABS: Glucose,Whole Blood 112 mg/dL (70-110)
[2023-05-23 20:00] LABS: Glucose,Whole Blood 183 mg/dL (70-110)
[2023-05-24] MEDS: PIPERACILLIN-TAZOBACTAM 3.375 GM in SODIUM CHLORIDE 0.9% 100 ML IVPB SCH ×4 (00:12→23:16)
[2023-05-24] MEDS: BUMETANIDE 10 MG in DEXTROSE 5% IN WATER 60 ML IV SCH ×4 (00:39→16:17)
[2023-05-24 05:47] LABS: Glucose,Whole Blood 119 mg/dL (70-110)
[2023-05-24] MEDS: INSULIN ASPART (NovoLOG) 100 UNIT/ML VIAL SQ SCH ×4 (06:17→20:09)
[2023-05-24] MEDS: DOBUTamine DRIP 500 MG in DEXTROSE/WATER 1 250ML.BAG IV SCH ×2 (06:21→09:27)
[2023-05-24] MEDS: MIDODRINE 5 MG TAB PO SCH ×3 (06:25→17:32)
[2023-05-24] MEDS: INSULIN DETEMIR (LEVEMIR) 100 UNIT/ML SYR SQ SCH (06:25)
[2023-05-24 08:13] LABS: HCT 41.3 % (39.0-53.0); HGB 13.3 gm/dL (13.0-17.5); Hypochromasia Slight; MCH 28.5 pg (25.0-35.0); MCHC 32.1 g/dL (31.0-37.0); MCV 88.6 fL (80.0-100.0); Platelet Count 224 k/uL (150-450); RBC 4.65 m/uL (4.30-5.90); RDW 14.5 % (11.5-15.5); WBC 11.5 k/uL (3.8-10.6)
[2023-05-24] MEDS: hydrALAZINE HCL 10 MG TAB PO SCH ×3 (09:04→21:39)
[2023-05-24] MEDS: ISOSORBIDE DINITRATE 10 MG TAB PO SCH ×3 (09:04→21:36)
[2023-05-24 09:16] LABS: African American GFR (CKD) 35 (>60 ml/min/1.73 sqM); Anion Gap 17 mmol/L; Blood Urea Nitrogen 79 mg/dL (9-20); C Reactive Protein 2.2 mg/dL (<1.0); Calcium 9.4 mg/dL (8.4-10.2); Carbon Dioxide 27 mmol/L (22-30); Chloride 91 mmol/L (98-107); Glucose 122 mg/dL (74-99); Non-African American GFR(CKD) 30 (>60 ml/min/1.73 sqM); Potassium 4.5 mmol/L (3.5-5.1); Sodium 135 mmol/L (137-145)
[2023-05-24] MEDS: CYCLOBENZAPRINE 10 MG TAB PO SCH ×4 (09:17→20:09)
[2023-05-24] MEDS: SPIRONOLACTONE 25 MG TAB PO SCH (09:17)
[2023-05-24] MEDS: MORPHINE SULFATE IR 15 MG TABLET PO PRN ×2 (09:17→20:46)
[2023-05-24] MEDS: ASPIRIN 81 MG PO SCH (09:17)
[2023-05-24] MEDS: ATORVASTATIN 40 MG TAB PO SCH (09:17)
[2023-05-24] MEDS: NICOTINE 14MG/24HR PATCH TRANSDERM SCH (09:18)
[2023-05-24] MEDS: DULoxetine HCL 60 MG CAPSULE.DR PO SCH ×2 (09:18→20:09)
[2023-05-24] MEDS: metOLazone 5 MG TAB PO SCH (09:19)
--- NOTE | 2023-05-24 11:19 | P.PN ---
Subjective Progress Note Date: 05/24/23 History of present illness: This is a 52-year-old male patient of Dr. Yared Abbasi with past medical history of nonischemic cardiomyopathy, hypertension, dyslipidemia, status post AICD, diabetes. We have been asked to evaluate the patient for run of V. tach. Patient has presented to the hospital due to right heel diabetic foot ulcer with osteomyelitis status post debridement. Patient had a run of nonsustained ventricular tachycardia of 13 beats. He does have AICD as noted above. Patient denies having any chest pain. Noted that patient has now been resumed on Entresto due to hypotension. Patient is currently on IV Lasix 60 mg every 12 hours. Sodium 136, potassium 4.3, BUN 67 creatinine 2.05. WBC 15.4, hemoglobin 12.4. Home cardiac medications: Lasix 80 mg twice daily, Entresto 24 mg26 mg twice daily, Aldactone 25 mg daily [address] single-[address] ICD [facility] Echocardiogram 06/2022 revealed EF less than 20% with global hypokinesia. Progress Note Date: 05/19/23 Progress note: Patient's creatinine has continued to decline on diuretic therapy. His EF is 10-15%. Creatinine 1.5-on admission, with diuretic therapy creatinine has increased to 2.91. I will start him on low-dose dobutamine running at 5 mcg/h. Transfer patient to [address] [place], [place] [address]etry. BP 91/67, Urine output was not documented accurately 05/20 Patient is seen today on the cardiac stepdown unit. Patient was started on dobutamine drip yesterday he states is urinating about the same amount yesterday yesterday. He continues to have edema up into the thigh area and also having acute kidney injury. In general he feels he is okay. No significant pain in his foot. Blood pressure 91/57, heart rate in the 70s, afebrile, pulse ox 96% on room air. BUN 80 creatinine 2.74. Nephrology is switching patient to Bumex drip. 05/21 The patient does not appear to be urinating very much for not all of his output is being measured as he is sometimes using the bathroom. Patient is currently on dobutamine drip at 2.5 g, Bumex 2 mg IV twice daily and Aldactone 12.5 mg daily. Yesterday we added in Isordil, metolazone and hydralazine. Systolic blood pressures of been in the 90s, heart rates in the 60s to 80s. Repeat blood work reveals BUN 88 and creatinine 2.74. 05/22 Patient is seen today in follow-up. He is continued on dopamine drip currently at 5 g, Bumex was increased yesterday to 3 mg IV twice daily and patient has been continued on Isordil metolazone and Aldactone. Patient has had improvement in his weight down 4 kg. I&O's do not appear to be accurate. Systolic blood pressure running in the 90s, pulse ox 90% on room air, heart rate anywhere from 66-95. Repeat blood work reveals improving of the renal function with a BUN of 85 creatinine 2.5 05/23 Patient seen and examined. Denies any SOB. Having some mild improvement in LE edema. Remains on dobutmaine drip at 2.5 and IV bumex and zaroxolyn. Cr mildly improved today. 05/24 Patient denies shortness of breath. He has no chest pain or pressure. He states he feels tired and has not been sleeping well here. He has leg pain. Lower extremity edema is slowly improving. He states he is urinating a lot. He is on a Bumex drip and dopamine drip. Hydralazine and Isordil were held this morning probably for MAP less than 65. Physical examination: Gen: This is a 52-year-old male. He is resting on the edge of the bed and appears comfortable and in no acute distress. VS: reviewed HEENT: Head is atraumatic, normocephalic. Pupils equal, round. Sclerae is anicteric. NECK: Supple. No JVD. LUNGS: Clear to auscultation. No wheezes or rhonchi. No intercostal retractions. HEART: Regular rate and rhythm. No murmur. ABDOMEN: Soft No tenderness. EXTREMITIES: Dressing on the right foot. 23 plus pedal edema. No calf tenderness. NEUROLOGICAL: Patient is awake, alert and oriented x3. Assessment: Cardiogenic shock cardiorenal syndrome Acute systolic heart failure exacerbation Nonsustained ventricular tachycardia, expected Diabetic foot ulcer Nonischemic cardiomyopathy EF 20%, status post AICD Hypertension Dyslipidemia Type II Diabetes Smoker, No compliance Plan: Continue dobutamine drip Continue Bumex drip per nephrology Continue Aldactone 12.5 mg daily Stop Metoprolol due to cardiorenal Continue patient on Isordil 10 mg 3 times daily, metolazone 5 mg daily to reduce afterload, parameters in place to hold if map less than 65 Do not give midodrine until SBP is less than 80 and mean arterial pressure is less than 60 mmHg Poor prognosis. Nurse practitioner note has been reviewed, I agree with the documented findings and plan of care. Patient was seen and examined. Objective - Vital Signs Vital signs: Vital Signs Temp 98.4 F 05/24/23 08:10 Pulse 102 H 05/24/23 08:10 Resp 18 05/24/23 08:10 BP 84/52 05/24/23 08:10 Pulse Ox 94 L 05/24/23 08:10 FiO2 Intake & Output 05/23/23 05/24/23 05/24/23 18:59 06:59 18:59 Intake Total 307.32 292.68 825 Output Total 3200 2950 Balance -2892.68 -2657.32 825 Weight 99.5 kg Intake: Intake, IV Titration 307.32 292.68 Amount Bumetanide 10 mg In 100 Dextrose 5% in Water 60 ml @ 1 MG/HR 10 mls/hr IV .Q10H [facility] Rx#:[id number] DOBUTamine DRIP 500 mg In 307.32 192.68 Dextrose/Water 1 250ml. bag @ 5 MCG/KG/MIN 17.325 mls/hr IV .[id number] [facility] Rx#:[id number] Oral 225 Tube Feeding 600 Output: Urine 3200 2950 Other: Voiding Method Toilet Toilet Urinal Urinal # Voids 2 # Bowel Movements 1 - Labs CBC & Chem 7: 05/24/23 07:31 05/24/23 07:31 Labs: Abnormal Lab Results - Last 24 Hours (Table) 05/23/23 05/23/23 05/23/23 Range/Units 11:22 16:36 19:59 WBC (3.8-10.6) k/uL Sodium (137-145) mmol/L Chloride (98-107) mmol/L BUN (9-20) mg/dL Creatinine (0.66-1.25) mg/dL Glucose (74-99) mg/dL POC Glucose (mg/dL) 164 H 112 H 183 H (70-110) mg/dL C-Reactive Protein (<1.0) mg/dL 05/24/23 05/24/23 05/24/23 Range/Units 05:46 07:31 07:31 WBC 11.5 H (3.8-10.6) k/uL Sodium 135 L (137-145) mmol/L Chloride 91 L (98-107) mmol/L BUN 79 H (9-20) mg/dL Creatinine 2.37 H (0.66-1.25) mg/dL Glucose 122 H (74-99) mg/dL POC Glucose (mg/dL) 119 H (70-110) mg/dL C-Reactive Protein 2.2 H (<1.0) mg/dL Microbiology - Last 24 Hours (Table) 05/20/23 07:56 Blood Culture - Preliminary Blood
[2023-05-24 11:28] LABS: Glucose,Whole Blood 172 mg/dL (70-110)
--- NOTE | 2023-05-24 11:29 | P.PN ---
Subjective Patient is seen in follow-up for acute kidney injury. Maintained on dobutamine as well as Bumex drip. Nonoliguric. Weight trending down. No chest pain or shortness of breath. Blood pressure in the lower side. Vital signs are stable. General: No acute distress. HEENT: Head exam is unremarkable. LUNGS: No audible rhonchi or wheezes. HEART: Rate and Rhythm are regular. ABDOMEN: Nontender. EXTREMITITES: 2+ edema. Lower exam is regular. Objective - Vital Signs Vital signs: Vital Signs Temp 98.4 F 05/24/23 08:10 Pulse 102 H 05/24/23 08:10 Resp 18 05/24/23 08:10 BP 84/52 05/24/23 08:10 Pulse Ox 94 L 05/24/23 08:10 FiO2 Intake & Output 05/23/23 05/24/23 05/24/23 18:59 06:59 18:59 Intake Total 307.32 292.68 825 Output Total 3200 2950 Balance -2892.68 -2657.32 825 Weight 99.5 kg Intake: Intake, IV Titration 307.32 292.68 Amount Bumetanide 10 mg In 100 Dextrose 5% in Water 60 ml @ 1 MG/HR 10 mls/hr IV .Q10H [facility] Rx#:[id number] DOBUTamine DRIP 500 mg In 307.32 192.68 Dextrose/Water 1 250ml. bag @ 5 MCG/KG/MIN 17.325 mls/hr IV .[id number] [facility] Rx#:[id number] Oral 225 Tube Feeding 600 Output: Urine 3200 2950 Other: Voiding Method Toilet Toilet Urinal Urinal # Voids 2 # Bowel Movements 1 - Labs CBC & Chem 7: 05/24/23 07:31 05/24/23 07:31 Labs: Abnormal Lab Results - Last 24 Hours (Table) 05/23/23 05/23/23 05/23/23 Range/Units 11:22 16:36 19:59 WBC (3.8-10.6) k/uL Sodium (137-145) mmol/L Chloride (98-107) mmol/L BUN (9-20) mg/dL Creatinine (0.66-1.25) mg/dL Glucose (74-99) mg/dL POC Glucose (mg/dL) 164 H 112 H 183 H (70-110) mg/dL C-Reactive Protein (<1.0) mg/dL 05/24/23 05/24/23 05/24/23 Range/Units 05:46 07:31 07:31 WBC 11.5 H (3.8-10.6) k/uL Sodium 135 L (137-145) mmol/L Chloride 91 L (98-107) mmol/L BUN 79 H (9-20) mg/dL Creatinine 2.37 H (0.66-1.25) mg/dL Glucose 122 H (74-99) mg/dL POC Glucose (mg/dL) 119 H (70-110) mg/dL C-Reactive Protein 2.2 H (<1.0) mg/dL Microbiology - Last 24 Hours (Table) 05/20/23 07:56 Blood Culture - Preliminary Blood Assessment and Plan Plan: Assessment: 1. Acute kidney injury secondary to ATN secondary to hypotension and cardiorenal syndrome. Creatinine 1.23 on admission and peaked at 2.9 when this admission - 2.37 today. No hydronephrosis noted on kidney ultrasound. UA benign. 2. Acute on chronic systolic CHF with ejection fraction of less than 20% with moderate to severe mitral regurgitation, moderate tricuspid regurgitation and severe pulmonary hypertension. Status post AICD. 3. Volume overload. 4. Right foot wound being followed by vascular surgery and infectious disease. Status post debridement. On antibiotics. 5. Diabetes mellitus. Plan: Maintain dobutamine and Bumex drip. Can likely change to IV push Bumex tomorrow. Also on metolazone and Aldactone. Increase dose of midodrine. Hold for systolic blood pressure greater than 110. Avoid nephrotoxins. Continue to monitor renal function and urine output. Low-salt diet and 1500 mL fluid restriction. Will benefit from SGLT2i once infection resolves.
--- NOTE | 2023-05-24 12:13 | P.PN ---
Subjective Progress Note Date: 05/22/23 Principal diagnosis: R diabetic foot/osteomyelitis Patient is a 52-year-old male with a past medical history significant for right heel diabetic foot infection with an episode of osteomyelitis. Patient completed his antibiotic therapy now presenting back to the hospital with worsening wound, the patient did have a surgical debridement of the right heel wound completed on 01/14/2023 On today's evaluation that is 05/22/2023, the patient denies any fever and chills, the patient is breathing comfortably on room air and denies any shortness of breath, the patient denies having any chest pain or cough, patient denies Abdominal pain, nausea/vomiting /diarrhea Patient did have a white count of 15.4 as of 05/15/2023, and no CBC done today creatinine is 2.54, Objective - Vital Signs Vital signs: Vital Signs Temp 97.8 F 05/22/23 08:00 Pulse 95 05/22/23 08:00 Resp 14 05/22/23 08:00 BP 103/72 05/22/23 08:00 Pulse Ox 98 05/22/23 08:00 FiO2 Intake & Output 05/21/23 05/22/23 05/22/23 18:59 06:59 18:59 Intake Total 236 724 Output Total 800 1400 Balance -564 -676 Weight 111.3 kg Intake: Intake, IV Titration 250 Amount DOBUTamine DRIP 500 mg In 250 Dextrose/Water 1 250ml. bag @ 5 MCG/KG/MIN 17.325 mls/hr IV .[id number] [facility] Rx#:[id number] Oral 236 474 Output: Urine 800 1400 Other: Voiding Method Toilet Toilet Urinal Urinal # Voids 1 # Bowel Movements 1 1 - Exam GENERAL DESCRIPTION: Middle-age male lying in bed in no distress RESPIRATORY SYSTEM: Unlabored breathing , decreased breath sounds at bases HEART: S1 S2 regular rate and rhythm ,no loud murmurs ABDOMEN: Soft , no tenderness EXTREMITIES: Right foot is currently dressed no drainage on the dressing - Labs CBC & Chem 7: 05/24/23 07:31 05/24/23 07:31 Labs: Abnormal Lab Results - Last 24 Hours (Table) 05/21/23 05/21/23 05/21/23 Range/Units 11:26 11:30 20:05 Sodium 134 L (137-145) mmol/L Carbon Dioxide 20 L (22-30) mmol/L BUN 88 H (9-20) mg/dL Creatinine 2.74 H (0.66-1.25) mg/dL Glucose 137 H (74-99) mg/dL POC Glucose (mg/dL) 126 H 137 H (70-110) mg/dL Microbiology - Last 24 Hours (Table) 05/20/23 07:56 Blood Culture - Preliminary Blood Assessment and Plan (1) Foot osteomyelitis, right Current Visit: Yes Status: Acute Code(s): M86.9 - OSTEOMYELITIS, UNSPECIFIED SNOMED Code(s): 3919049735284531 (2) Type 2 diabetes mellitus with right diabetic foot ulcer Current Visit: Yes Status: Acute Code(s): E11.621 - TYPE 2 DIABETES MELLITUS WITH FOOT ULCER; L97.519 - NON-PRS CHRONIC ULCER OTH PRT RIGHT FOOT W UNSP SEVERITY SNOMED Code(s): 690483085 (3) Wound infection Current Visit: Yes Status: Acute Code(s): T14.8XXA - OTHER INJURY OF UNSPECIFIED BODY REGION, INITIAL ENCOUNTER; L08.9 - LOCAL INFECTION OF THE SKIN AND SUBCUTANEOUS TISSUE, UNSP SNOMED Code(s): 12221017 Plan: 1patient with extensive right diabetic foot infection with evidence of necrosis and foul-smelling drainage send significant deep wound concerning for osteomyelitis and will need to cover for the polymicrobial stacy usually associated with the diabetic foot infection 2Positive blood culture with corynebacterium likely skin contamination 3patient has been evaluated by vascular surgery and is status post debridement and deep culture was growing Streptococcus and Proteus that is resistant to Unasyn. Also growing Providencia and acinetobacter Iwoffi along with anaerobes 4patient continue with Zosyn will need a PICC line for outpatient IV antibiotics plan for at least 6 weeks of Zosyn, question and concerns were answered Dictation was produced using [employer] dictation software. please excuse any grammatical, word or spelling errors. Time with Patient: Less than 30
--- NOTE | 2023-05-24 12:14 | P.PN ---
Subjective Progress Note Date: 05/23/23 Principal diagnosis: R diabetic foot/osteomyelitis Patient is a 52-year-old male with a past medical history significant for right heel diabetic foot infection with an episode of osteomyelitis. Patient completed his antibiotic therapy now presenting back to the hospital with worsening wound, the patient did have a surgical debridement of the right heel wound completed on 01/14/2023 On today's evaluation that is 05/23/2023, the patient continues to be afebrile, the patient is breathing comfortably on room air, the patient denies any chest pain shortness of breath or cough, patient denies abdominal pain, and denies any nausea/vomiting or diarrhea , denies pain to the right heel wound area Patient did have a white count of 15.4 as of 05/15/2023 creatinine is 2.74 as of yesterday no lab draw today, Objective - Vital Signs Vital signs: Vital Signs Temp 98.2 F 05/23/23 08:45 Pulse 88 05/23/23 08:45 Resp 18 05/23/23 08:45 BP 83/56 05/23/23 08:45 Pulse Ox 98 05/23/23 08:45 FiO2 Intake & Output 05/22/23 05/23/23 05/23/23 18:59 06:59 18:59 Intake Total 1020 540 250 Output Total 2550 800 Balance 1019 Weight 103 kg Intake: Intake, IV Titration 250 Amount DOBUTamine DRIP 500 mg In 250 Dextrose/Water 1 250ml. bag @ 5 MCG/KG/MIN 17.325 mls/hr IV .[id number] [facility] Rx#:[id number] Oral 1020 540 Output: Urine 2550 800 Other: Voiding Method Toilet Toilet Toilet Urinal Urinal Urinal # Voids 2 # Bowel Movements 1 - Exam GENERAL DESCRIPTION: Middle-age male lying in bed in no distress RESPIRATORY SYSTEM: Unlabored breathing , decreased breath sounds at bases HEART: S1 S2 regular rate and rhythm ,no loud murmurs ABDOMEN: Soft , no tenderness EXTREMITIES: Right foot is currently dressed no drainage on the dressing - Labs CBC & Chem 7: 05/24/23 07:31 05/24/23 07:31 Labs: Abnormal Lab Results - Last 24 Hours (Table) 05/22/23 05/23/23 05/23/23 Range/Units 20:18 06:18 11:22 POC Glucose (mg/dL) 146 H 115 H 164 H (70-110) mg/dL Microbiology - Last 24 Hours (Table) 05/20/23 07:56 Blood Culture - Preliminary Blood 05/15/23 16:20 Gram Stain - Final Heel - Right Tissue Culture - Final Proteus vulgaris Strep agalactiae - (group b) Assessment and Plan (1) Foot osteomyelitis, right Current Visit: Yes Status: Acute Code(s): M86.9 - OSTEOMYELITIS, UNSPECIFIED SNOMED Code(s): 5309943085732478 (2) Type 2 diabetes mellitus with right diabetic foot ulcer Current Visit: Yes Status: Acute Code(s): E11.621 - TYPE 2 DIABETES MELLITUS WITH FOOT ULCER; L97.519 - NON-PRS CHRONIC ULCER OTH PRT RIGHT FOOT W UNSP SEVERITY SNOMED Code(s): 824803550 (3) Wound infection Current Visit: Yes Status: Acute Code(s): T14.8XXA - OTHER INJURY OF UNSPECIFIED BODY REGION, INITIAL ENCOUNTER; L08.9 - LOCAL INFECTION OF THE SKIN AND SUBCUTANEOUS TISSUE, UNSP SNOMED Code(s): 17348935 Plan: 1patient with extensive right diabetic foot infection with evidence of necrosis and foul-smelling drainage send significant deep wound concerning for osteomyelitis and will need to cover for the polymicrobial stacy usually associated with the diabetic foot infection 2Positive blood culture with corynebacterium likely skin contamination 3patient has been evaluated by vascular surgery and is status post debridement and deep culture was growing Streptococcus and Proteus that is resistant to Unasyn. Also growing Providencia and acinetobacter Iwoffi along with anaerobes 4patient continue with Zosyn , patient only got a PICC line and we will repeat his CBC and a BMP with a.m. labs Dictation was produced using [employer] dictation software. please excuse any grammatical, word or spelling errors. Time with Patient: Less than 30
--- NOTE | 2023-05-24 12:16 | P.PN ---
Subjective Progress Note Date: 05/24/23 Principal diagnosis: R diabetic foot/osteomyelitis Patient is a 52-year-old male with a past medical history significant for right heel diabetic foot infection with an episode of osteomyelitis. Patient completed his antibiotic therapy now presenting back to the hospital with worsening wound, the patient did have a surgical debridement of the right heel wound completed on 01/14/2023 On today's evaluation that is 05/24/2023, the patient denies any fever or chills, the patient is breathing comfortably on room air, the patient denies any chest pain shortness of breath or cough, patient denies abdominal pain, no nausea/vomiting or diarrhea , the patient denies pain to the right heel wound area Patient did have a white count is down to 11.5 creatinine is 2.37 Objective - Vital Signs Vital signs: Vital Signs Temp 98.4 F 05/24/23 08:10 Pulse 102 H 05/24/23 08:10 Resp 18 05/24/23 08:10 BP 84/52 05/24/23 08:10 Pulse Ox 94 L 05/24/23 08:10 FiO2 Intake & Output 05/23/23 05/24/23 05/24/23 18:59 06:59 18:59 Intake Total 307.32 292.68 825 Output Total 3200 2950 Balance -2892.68 -2657.32 825 Weight 99.5 kg Intake: Intake, IV Titration 307.32 292.68 Amount Bumetanide 10 mg In 100 Dextrose 5% in Water 60 ml @ 1 MG/HR 10 mls/hr IV .Q10H [facility] Rx#:[id number] DOBUTamine DRIP 500 mg In 307.32 192.68 Dextrose/Water 1 250ml. bag @ 5 MCG/KG/MIN 17.325 mls/hr IV .[id number] [facility] Rx#:[id number] Oral 225 Tube Feeding 600 Output: Urine 3200 2950 Other: Voiding Method Toilet Toilet Urinal Urinal # Voids 2 # Bowel Movements 1 - Exam GENERAL DESCRIPTION: Middle-age male lying in bed in no distress RESPIRATORY SYSTEM: Unlabored breathing , decreased breath sounds at bases HEART: S1 S2 regular rate and rhythm ,no loud murmurs ABDOMEN: Soft , no tenderness EXTREMITIES: Right heel wound with a bone exposed palpable did have some necrotic tissue however surrounding swelling redness and foul-smelling drainage has improved - Labs CBC & Chem 7: 05/24/23 07:31 05/24/23 07:31 Labs: Abnormal Lab Results - Last 24 Hours (Table) 05/23/23 05/23/23 05/24/23 Range/Units 16:36 19:59 05:46 WBC (3.8-10.6) k/uL Sodium (137-145) mmol/L Chloride (98-107) mmol/L BUN (9-20) mg/dL Creatinine (0.66-1.25) mg/dL Glucose (74-99) mg/dL POC Glucose (mg/dL) 112 H 183 H 119 H (70-110) mg/dL C-Reactive Protein (<1.0) mg/dL 05/24/23 05/24/23 05/24/23 Range/Units 07:31 07:31 11:26 WBC 11.5 H (3.8-10.6) k/uL Sodium 135 L (137-145) mmol/L Chloride 91 L (98-107) mmol/L BUN 79 H (9-20) mg/dL Creatinine 2.37 H (0.66-1.25) mg/dL Glucose 122 H (74-99) mg/dL POC Glucose (mg/dL) 172 H (70-110) mg/dL C-Reactive Protein 2.2 H (<1.0) mg/dL Microbiology - Last 24 Hours (Table) 05/20/23 07:56 Blood Culture - Preliminary Blood Assessment and Plan (1) Foot osteomyelitis, right Current Visit: Yes Status: Acute Code(s): M86.9 - OSTEOMYELITIS, UNSPECIFIED SNOMED Code(s): 9746242838536556 (2) Type 2 diabetes mellitus with right diabetic foot ulcer Current Visit: Yes Status: Acute Code(s): E11.621 - TYPE 2 DIABETES MELLITUS WITH FOOT ULCER; L97.519 - NON-PRS CHRONIC ULCER OTH PRT RIGHT FOOT W UNSP SEVERITY SNOMED Code(s): 715771778 (3) Wound infection Current Visit: Yes Status: Acute Code(s): T14.8XXA - OTHER INJURY OF UNS PECIFIED BODY REGION, INITIAL ENCOUNTER; L08.9 - LOCAL INFECTION OF THE SKIN AND SUBCUTANEOUS TISSUE, UNSP SNOMED Code(s): 75460704 Plan: 1patient with extensive right diabetic foot infection with evidence of necrosis and foul-smelling drainage send significant deep wound concerning for osteomyelitis, patient is status post debridement and deep culture which is growing Streptococcus and Proteus that is resistant to Unasyn. Also growing P rovidencia and acinetobacter Iwoffi along with anaerobes 2patient is afebrile the patient white count almost normalized, patient to continue with Zosyn with a plan for 6 weeks of IV Zosyn on discharge and close outpatient follow-up Dictation was produced using [employer] dictation software. please excuse any grammatical, word or spelling errors. Time with Patient: Less than 30
--- NOTE | 2023-05-24 15:34 | P.PN ---
Subjective Progress Note Date: 05/24/23 52-year-old patient, follows with Dr. Rodríguez. Chronic stable medical condition include CHF EF less than 20%, COPD, diabetes mellitus type 2, hypertension, hyperlipidemia, obstructive sleep apnea, anxiety, AICD, lower extremity venous insufficiency. Patient had lower extremity wounds and has been followed by ID and Dr. Lugo from vascular. Patient has not been able to make a wound care center regularly because of transportation issues. Now presents with worsening wound on the right foot. Has had previous debridement of same. It is draining. Somewhat foul-smelling.. Patient had some chills. May 15: Patient had right foot wound debridement with Dr. Lugo. Currently in dressing. Patient received IV fluids from the ER. Stop the same. IV Lasix. Patient is on IV Unasyn and IV vancomycin per ID. Significant edema. May 16: IV Lasix 60 mg every 12. Unclear if he is making much urine. IV vancomycin was discontinued yesterday because of renal function. Some decrease in edema. Oral intake good. IV Unasyn. Being followed by ID. May 17: Making good urine. I's and O not well documented. Remains on IV Lasix 60:12. Still a significant edema. Breathing is stable. IV Unasyn. Creatinine 2.05. I discussed with Dr. Lugo from vascular. Patient might need a amputation down the road. Patient has several social issues going on. May 18: Patient placed on IV Bumex. Making urine. Significant edema present. Breathing much better. Creatinine going up. Being followed by cardiology and nephrology. May 19: Today remains on IV Bumex 2 mg every 12. We started on dobutamine drip and both the cardiology selective floor. IV Zosyn to continue. Tolerating diet well. Breathing stable. Lower extremity edema. Creatinine worsening May 20: Patient is moved to the selective cardiology floor. Remains on IV dobutamine. An IV Bumex bolus. Urine output. Noted tolerating diet. Also on Zaroxolyn. Creatinine has plateaued off May 21: Tired. Oral intake fair. Remains on IV dobutamine drip and IV Bumex and bolus. Making urine. Some improvement in creatinine. Remains on IV Zosyn. May 22: Bumex was increased to 3 mg twice a day to yesterday. Remains on dobutamine drip. IV Zosyn. Oral intake fair. Slight improvement in creatinine. Slight improvement in edema. May 23: Patient seen and evaluated bedside, continue patient on Bumex and dobutamine drip, on IV antibiotic patient is alert and oriented 3 does have lower extremity edema, and remains on room air hypotensive systolic pressure ranging from 8200 with map of 65, serum chemistry pending continued to follow up on CBC and basic metabolic panel 05/24. Patient seen and examined. States he feels much better compared to yesterday. Tolerating diet. Denies any lightheadedness or dizziness. Swelling of lower extremities are improved REVIEW OF SYSTEMS: CONSTITUTIONAL: No fever, no malaise,. CARDIOVASCULAR: No chest pain, no palpitations, no syncope. PULMONARY: No shortness of breath, no cough, GASTROINTESTINAL: No diarrhea, no nausea, no vomiting, no abdominal pain. NEUROLOGICAL: No headaches, no weakness, PHYSICAL EXAMINATION: GENERAL: The patient is alert and oriented x3, not in any acute distress. Well developed, well nourished. HEENT: Pupils are round and equally reacting to light. EOMI. No scleral icterus. No conjunctival pallor. Normocephalic, atraumatic. No pharyngeal erythema. No thyromegaly. CARDIOVASCULAR: S1 and S2 present. No murmurs, rubs, or gallops. PULMONARY: Chest is clear to auscultation, no wheezing or crackles. ABDOMEN: Soft, nontender, nondistended, normoactive bowel sounds. No palpable organomegaly. MUSCULOSKELETAL: No joint swelling or deformity. EXTREMITIES: 2+ pitting edema lower extremity bilaterally. Right foot bandaged seen NEUROLOGICAL: Gross neurological examination did not reveal any focal deficits. SKIN: No rashes. Assessment and plan Diabetic foot ulcer with right lower extremity cellulitis * Sepsis secondary to diabetic foot ulcer * Acute on chronic congestive heart failure with ejection fraction 20% * COPD * Diabetes mellitus type 2 * Acute kidney injury on chronic kidney disease stage III suspect cardiorenal syndrome * History of anxiety * Chronic nicotine use * Diabetic neuropathy Monitor vital signs Monitor CBC Monitor CMP Continue telemetry monitoring Regarding Diabetic foot ulcer, patient seen by vascular, ID, had wound debr idement and. Wound cultures show Proteus vulgaris, Streptococcus agalactiae group B, continue patient on IV antibiotics, on IV Zosyn In regards to sepsis, blood cultures and wound cultures reviewed continue IV antibiotic In regards to congestive heart failure continue patient on Bumex and dobutamine drip, monitor intake and output In regards to renal failure, monitor renal functions, continue Bumex dobutamine, nephrology following Labs and medication were reviewed.. Continue same treatment. Continue with symptomatic treatment. Resume home medication. Monitor labs and vitals. DVT and GI prophylaxis. Further recommendations as per clinical course of the patient Dictation was produced using [employer] dictation software. please excuse any grammatical, word or spelling errors. Objective - Vital Signs Vital signs: Vital Signs Temp 98.4 F 05/24/23 11:50 Pulse 96 05/24/23 14:00 Resp 18 05/24/23 14:00 BP 92/52 05/24/23 11:50 Pulse Ox 100 05/24/23 11:50 FiO2 Intake & Output 05/23/23 05/24/23 05/24/23 18:59 06:59 18:59 Intake Total 307.32 292.68 935 Output Total 3200 2950 Balance -2892.68 -2657.32 935 Weight 99.5 kg Intake: Intake, IV Titration 307.32 292.68 Amount Bumetanide 10 mg In 100 Dextrose 5% in Water 60 ml @ 1 MG/HR 10 mls/hr IV .Q10H [facility] Rx#:[id number] DOBUTamine DRIP 500 mg In 307.32 192.68 Dextrose/Water 1 250ml. bag @ 5 MCG/KG/MIN 17.325 mls/hr IV .[id number] [facility] Rx#:[id number] Oral 335 Tube Feeding 600 Output: Urine 3200 2950 Other: Voiding Method Toilet Toilet Toilet Urinal Urinal Urinal # Voids 2 # Bowel Movements 1 - Labs CBC & Chem 7: 05/24/23 07:31 05/24/23 07:31 Labs: Abnormal Lab Results - Last 24 Hours (Table) 05/23/23 05/23/23 05/24/23 Range/Units 16:36 19:59 05:46 WBC (3.8-10.6) k/uL Sodium (137-145) mmol/L Chloride (98-107) mmol/L BUN (9-20) mg/dL Creatinine (0.66-1.25) mg/dL Glucose (74-99) mg/dL POC Glucose (mg/dL) 112 H 183 H 119 H (70-110) mg/dL C-Reactive Protein (<1.0) mg/dL 05/24/23 05/24/23 05/24/23 Range/Units 07:31 07:31 11:26 WBC 11.5 H (3.8-10.6) k/uL Sodium 135 L (137-145) mmol/L Chloride 91 L (98-107) mmol/L BUN 79 H (9-20) mg/dL Creatinine 2.37 H (0.66-1.25) mg/dL Glucose 122 H (74-99) mg/dL POC Glucose (mg/dL) 172 H (70-110) mg/dL C-Reactive Protein 2.2 H (<1.0) mg/dL Microbiology - Last 24 Hours (Table) 05/20/23 07:56 Blood Culture - Preliminary Blood
[2023-05-24 16:20] LABS: Glucose,Whole Blood 183 mg/dL (70-110)
[2023-05-24 19:53] LABS: Glucose,Whole Blood 127 mg/dL (70-110)
[2023-05-25] MEDS: DOBUTamine DRIP 500 MG in DEXTROSE/WATER 1 250ML.BAG IV SCH ×2 (05:02→19:59)
[2023-05-25] MEDS: BUMETANIDE 10 MG in DEXTROSE 5% IN WATER 60 ML IV SCH ×4 (05:02→15:57)
[2023-05-25 06:03] LABS: Glucose,Whole Blood 169 mg/dL (70-110)
[2023-05-25] MEDS: MIDODRINE 5 MG TAB PO SCH ×3 (06:50→17:07)
[2023-05-25] MEDS: INSULIN ASPART (NovoLOG) 100 UNIT/ML VIAL SQ SCH ×4 (06:50→19:59)
[2023-05-25] MEDS: INSULIN DETEMIR (LEVEMIR) 100 UNIT/ML SYR SQ SCH (06:50)
[2023-05-25 09:24] LABS: HCT 42.6 % (39.0-53.0); HGB 13.7 gm/dL (13.0-17.5); Hypochromasia Slight; MCH 28.3 pg (25.0-35.0); MCHC 32.1 g/dL (31.0-37.0); MCV 88.3 fL (80.0-100.0); Mean Platelet Volume 8.6; Platelet Count 265 k/uL (150-450); RBC 4.83 m/uL (4.30-5.90); RDW 14.5 % (11.5-15.5); WBC 16.9 k/uL (3.8-10.6)
[2023-05-25] MEDS: hydrALAZINE HCL 10 MG TAB PO SCH ×3 (09:26→20:00)
[2023-05-25] MEDS: ISOSORBIDE DINITRATE 10 MG TAB PO SCH ×3 (09:26→20:02)
[2023-05-25 09:52] LABS: ALT 72 U/L (4-49); AST 63 U/L (17-59); African American GFR (CKD) 36 (>60 ml/min/1.73 sqM); Albumin 3.7 g/dL (3.5-5.0); Alkaline Phosphatase 134 U/L (38-126); Anion Gap 16 mmol/L; Blood Urea Nitrogen 72 mg/dL (9-20); Calcium 9.5 mg/dL (8.4-10.2); Carbon Dioxide 35 mmol/L (22-30); Chloride 85 mmol/L (98-107); Glucose 186 mg/dL (74-99); Magnesium 1.9 mg/dL (1.6-2.3); Non-African American GFR(CKD) 31 (>60 ml/min/1.73 sqM); Potassium 4.1 mmol/L (3.5-5.1); Sodium 136 mmol/L (137-145); Total Bilirubin 1.2 mg/dL (0.2-1.3); Total Protein 7.8 g/dL (6.3-8.2)
[2023-05-25] MEDS: CYCLOBENZAPRINE 10 MG TAB PO SCH ×4 (11:18→20:00)
[2023-05-25] MEDS: ATORVASTATIN 40 MG TAB PO SCH (11:18)
[2023-05-25] MEDS: DULoxetine HCL 60 MG CAPSULE.DR PO SCH ×2 (11:18→20:00)
[2023-05-25] MEDS: SPIRONOLACTONE 25 MG TAB PO SCH (11:18)
[2023-05-25] MEDS: ASPIRIN 81 MG PO SCH (11:19)
[2023-05-25] MEDS: NICOTINE 14MG/24HR PATCH TRANSDERM SCH (11:19)
[2023-05-25] MEDS: MORPHINE SULFATE IR 15 MG TABLET PO PRN (11:20)
[2023-05-25] MEDS: PIPERACILLIN-TAZOBACTAM 3.375 GM in SODIUM CHLORIDE 0.9% 100 ML IVPB SCH ×2 (11:21→18:28)
[2023-05-25 11:26] LABS: Glucose,Whole Blood 191 mg/dL (70-110)
--- NOTE | 2023-05-25 12:14 | P.PN ---
Subjective Progress Note Date: 05/25/23 History of present illness: This is a 52-year-old male patient of Dr. Yared Abbasi with past medical history of nonischemic cardiomyopathy, hypertension, dyslipidemia, status post AICD, diabetes. We have been asked to evaluate the patient for run of V. tach. Patient has presented to the hospital due to right heel diabetic foot ulcer with osteomyelitis status post debridement. Patient had a run of nonsustained ventricular tachycardia of 13 beats. He does have AICD as noted above. Patient denies having any chest pain. Noted that patient has now been resumed on Entresto due to hypotension. Patient is currently on IV Lasix 60 mg every 12 hours. Sodium 136, potassium 4.3, BUN 67 creatinine 2.05. WBC 15.4, hemoglobin 12.4. Home cardiac medications: Lasix 80 mg twice daily, Entresto 24 mg26 mg twice daily, Aldactone 25 mg daily [address] [facility] Echocardiogram 06/2022 revealed EF less than 20% with global hypokinesia. Progress Note Date: 05/19/23 Progress note: Patient's creatinine has continued to decline on diuretic therapy. His EF is 10-15%. Creatinine 1.5-on admission, with diuretic therapy creatinine has increased to 2.91. I will start him on low-dose dobutamine running at 5 mcg/h. Transfer patient to [address] [place], [place] [address]etry. BP 91/67, Urine output was not documented accurately 05/20 Patient is seen today on the cardiac stepdown unit. Patient was started on dobutamine drip yesterday he states is urinating about the same amount yesterday yesterday. He continues to have edema up into the thigh area and also having acute kidney injury. In general he feels he is okay. No significant pain in his foot. Blood pressure 91/57, heart rate in the 70s, afebrile, pulse ox 96% on room air. BUN 80 creatinine 2.74. Nephrology is switching patient to Bumex drip. 05/21 The patient does not appear to be urinating very much for not all of his output is being measured as he is sometimes using the bathroom. Patient is currently on dobutamine drip at 2.5 g, Bumex 2 mg IV twice daily and Aldactone 12.5 mg daily. Yesterday we added in Isordil, metolazone and hydralazine. Systolic blood pressures of been in the 90s, heart rates in the 60s to 80s. Repeat blood work reveals BUN 88 and creatinine 2.74. 05/22 Patient is seen today in follow-up. He is continued on dopamine drip currently at 5 g, Bumex was increased yesterday to 3 mg IV twice daily and patient has been continued on Isordil metolazone and Aldactone. Patient has had improvement in his weight down 4 kg. I&O's do not appear to be accurate. Systolic blood pressure running in the 90s, pulse ox 90% on room air, heart rate anywhere from 66-95. Repeat blood work reveals improving of the renal function with a BUN of 85 creatinine 2.5 05/23 Patient seen and examined. Denies any SOB. Having some mild improvement in LE edema. Remains on dobutmaine drip at 2.5 and IV bumex and zaroxolyn. Cr mildly improved today. 05/24 Patient denies shortness of breath. He has no chest pain or pressure. He states he feels tired and has not been sleeping well here. He has leg pain. Lower extremity edema is slowly improving. He states he is urinating a lot. He is on a Bumex drip and dopamine drip. Hydralazine and Isordil were held this morning probably for MAP less than 65. 05/25 Patient's lower extremity edema is much improving. He denies having any fever or chills. He remains on dobutamine and Bumex drip but unfortunately pulled his PICC line out this morning and these need to be restarted. He has a negative fluid balance of 5550. Weight is down 16 kg since admission. Heart rate is in the 90s to low 100s. Blood pressure 102/66, pulse ox 94% on room air. WBC 16.9. BUN 72 and creatinine 2.29, potassium 4.1. CO2 35. Liver function tests are elevated. Physical examination: Gen: This is a 52-year-old male. He is resting on the edge of the bed and appears comfortable and in no acute distress. VS: reviewed HEENT: Head is atraumatic, normocephalic. Pupils equal, round. Sclerae is anicteric. NECK: Supple. No JVD. LUNGS: Clear to auscultation. No wheezes or rhonchi. No intercostal retractions. HEART: Regular rate and rhythm. No murmur. ABDOMEN: Soft No tenderness. EXTREMITIES: Dressing on the right foot. 2 plus pedal edema. No calf tenderness. NEUROLOGICAL: Patient is awake, alert and oriented x3. Assessment: Cardiogenic shock cardiorenal syndrome Acute systolic heart failure exacerbation Nonsustained ventricular tachycardia, expected Diabetic foot ulcer Nonischemic cardiomyopathy EF 20%, status post AICD Hypertension Dyslipidemia Type II Diabetes Smoker, No compliance Plan: Continue dobutamine drip Continue Bumex drip per nephrology Continue Aldactone 12.5 mg daily Stop Metoprolol due to cardiorenal Continue patient on Isordil 10 mg 3 times daily, metolazone 5 mg daily to reduce afterload, parameters in place to hold if map less than 65 Do not give midodrine until SBP is less than 80 and mean arterial pressure is less than 60 mmHg Poor prognosis. Patient is showing slow improvement. Nurse practitioner note has been reviewed, I agree with the documented findings and plan of care. Patient was seen and examined. Objective - Vital Signs Vital signs: Vital Signs Temp 98.4 F 05/25/23 09:35 Pulse 116 H 05/25/23 09:35 Resp 17 05/25/23 09:35 BP 102/66 05/25/23 09:35 Pulse Ox 94 L 05/25/23 09:35 FiO2 Intake & Output 05/24/23 05/25/23 05/25/23 18:59 06:59 18:59 Intake Total 1235 350 225 Output Total 400 Balance 1235 350 -175 Weight 99.6 kg Intake: Intake, IV Titration 100 350 Amount Bumetanide 10 mg In 100 100 Dextrose 5% in Water 60 ml @ 1 MG/HR 10 mls/hr IV .Q10H [facility] Rx#:[id number] DOBUTamine DRIP 500 mg In 250 Dextrose/Water 1 250ml. bag @ 5 MCG/KG/MIN 17.325 mls/hr IV .[id number] [facility] Rx#:[id number] Oral 535 225 Tube Feeding 600 Output: Urine 400 Other: Voiding Method Toilet Toilet Urinal Urinal # Voids 1 # Bowel Movements 1 - Labs CBC & Chem 7: 05/25/23 08:35 05/25/23 08:35 Labs: Abnormal Lab Results - Last 24 Hours (Table) 05/24/23 05/24/23 05/24/23 Range/Units 11:26 16:16 19:41 WBC (3.8-10.6) k/uL Sodium (137-145) mmol/L Chloride (98-107) mmol/L Carbon Dioxide (22-30) mmol/L BUN (9-20) mg/dL Creatinine (0.66-1.25) mg/dL Glucose (74-99) mg/dL POC Glucose (mg/dL) 172 H 183 H 127 H (70-110) mg/dL AST (17-59) U/L ALT (4-49) U/L Alkaline Phosphatase (38-126) U/L 05/25/23 05/25/23 05/25/23 Range/Units 06:01 08:35 08:35 WBC 16.9 H (3.8-10.6) k/uL Sodium 136 L (137-145) mmol/L Chloride 85 L (98-107) mmol/L Carbon Dioxide 35 H (22-30) mmol/L BUN 72 H (9-20) mg/dL Creatinine 2.29 H (0.66-1.25) mg/dL Glucose 186 H (74-99) mg/dL POC Glucose (mg/dL) 169 H (70-110) mg/dL AST 63 H (17-59) U/L ALT 72 H (4-49) U/L Alkaline Phosphatase 134 H (38-126) U/L
--- NOTE | 2023-05-25 13:05 | P.PN ---
Subjective Progress Note Date: 05/25/23 52-year-old patient, follows with Dr. Rodríguez. Chronic stable medical condition include CHF EF less than 20%, COPD, diabetes mellitus type 2, hypertension, hyperlipidemia, obstructive sleep apnea, anxiety, AICD, lower extremity venous insufficiency. Patient had lower extremity wounds and has been followed by ID and Dr. Lugo from vascular. Patient has not been able to make a wound care center regularly because of transportation issues. Now presents with worsening wound on the right foot. Has had previous debridement of same. It is draining. Somewhat foul-smelling.. Patient had some chills. May 15: Patient had right foot wound debridement with Dr. Lugo. Currently in dressing. Patient received IV fluids from the ER. Stop the same. IV Lasix. Patient is on IV Unasyn and IV vancomycin per ID. Significant edema. May 16: IV Lasix 60 mg every 12. Unclear if he is making much urine. IV vancomycin was discontinued yesterday because of renal function. Some decrease in edema. Oral intake good. IV Unasyn. Being followed by ID. May 17: Making good urine. I's and O not well documented. Remains on IV Lasix 60:12. Still a significant edema. Breathing is stable. IV Unasyn. Creatinine 2.05. I discussed with Dr. Lugo from vascular. Patient might need a amputation down the road. Patient has several social issues going on. May 18: Patient placed on IV Bumex. Making urine. Significant edema present. Breathing much better. Creatinine going up. Being followed by cardiology and nephrology. May 19: Today remains on IV Bumex 2 mg every 12. We started on dobutamine drip and both the cardiology selective floor. IV Zosyn to continue. Tolerating diet well. Breathing stable. Lower extremity edema. Creatinine worsening May 20: Patient is moved to the selective cardiology floor. Remains on IV dobutamine. An IV Bumex bolus. Urine output. Noted tolerating diet. Also on Zaroxolyn. Creatinine has plateaued off May 21: Tired. Oral intake fair. Remains on IV dobutamine drip and IV Bumex and bolus. Making urine. Some improvement in creatinine. Remains on IV Zosyn. May 22: Bumex was increased to 3 mg twice a day to yesterday. Remains on dobutamine drip. IV Zosyn. Oral intake fair. Slight improvement in creatinine. Slight improvement in edema. May 23: Patient seen and evaluated bedside, continue patient on Bumex and dobutamine drip, on IV antibiotic patient is alert and oriented 3 does have lower extremity edema, and remains on room air hypotensive systolic pressure ranging from 8200 with map of 65, serum chemistry pending continued to follow up on CBC and basic metabolic panel 05/24. Patient seen and examined. States he feels much better compared to yesterday. Tolerating diet. Denies any lightheadedness or dizziness. Swelling of lower extremities are improved 05/25. Patient seen and examined. Patient pulled out his IVs and PICC line overnight. IV access had to be achieved again. Patient not confused this morning. Answering questions appropriately. Lab work WBC 16.9, hemoglobin 13.7, sodium 136, potassium 4.1, BUN 72, creatinine 2.29. REVIEW OF SYSTEMS: CONSTITUTIONAL: No fever, no malaise,. CARDIOVASCULAR: No chest pain, no palpitations, no syncope. PULMONARY: No shortness of breath, no cough, GASTROINTESTINAL: No diarrhea, no nausea, no vomiting, no abdominal pain. NEUROLOGICAL: No headaches, no weakness, PHYSICAL EXAMINATION: GENERAL: The patient is alert and oriented x3, not in any acute distress. Well developed, well nourished. HEENT: Pupils are round and equally reacting to light. EOMI. No scleral icterus. No conjunctival pallor. Normocephalic, atraumatic. No pharyngeal erythema. No thyromegaly. CARDIOVASCULAR: S1 and S2 present. No murmurs, rubs, or gallops. PULMONARY: Chest is clear to auscultation, no wheezing or crackles. ABDOMEN: Soft, nontender, nondistended, normoactive bowel sounds. No palpable organomegaly. MUSCULOSKELETAL: No joint swelling or deformity. EXTREMITIES: 2+ pitting edema lower extremity bilaterally. Right lower extremity bandage seen. Right heel wound with a bone exposed NEUROLOGICAL: Gross neurological examination did not reveal any focal deficits. SKIN: No rashes. Assessment and plan Diabetic foot ulcer with right lower extremity cellulitis * Sepsis secondary to diabetic foot ulcer * Acute on chronic congestive heart failure with ejection fraction 20% * COPD * Diabetes mellitus type 2 * Acute kidney injury on chronic kidney disease stage III suspect cardiorenal syndrome * History of anxiety * Chronic nicotine use * Diabetic neuropathy Monitor vital signs Monitor CBC Monitor CMP Continue telemetry monitoring Regarding Diabetic foot ulcer, patient seen by vascular, ID, had wound debridement. Wound cultures show Proteus vulgaris, Streptococcus agalactiae group B, continue patient on IV antibiotics, on IV Zosyn, ID following In regards to sepsis, blood cultures and wound cultures reviewed continue IV antibiotic In regards to congestive heart failure continue patient on Bumex and dobutamine drip, monitor intake and output, continue Aldactone, Isosordil and Zaroxolyn cardiology following In regards to renal failure, monitor renal functions, continue Bumex dobutamine, nephrology following Labs and medication were reviewed.. Continue same treatment. Continue with symptomatic treatment. Resume home medication. Monitor labs and vitals. DVT and GI prophylaxis. Further recommendations as per clinical course of the patient Dictation was produced using [employer] dictation software. please excuse any grammatical, word or spelling errors. Objective - Vital Signs Vital signs: Vital Signs Temp 98.4 F 05/25/23 09:35 Pulse 116 H 05/25/23 09:35 Resp 17 05/25/23 09:35 BP 102/66 05/25/23 09:35 Pulse Ox 94 L 05/25/23 09:35 FiO2 Intake & Output 05/24/23 05/25/23 05/25/23 18:59 06:59 18:59 Intake Total 1235 350 225 Output Total 400 Balance 1235 350 -175 Weight 99.6 kg Intake: Intake, IV Titration 100 350 Amount Bumetanide 10 mg In 100 100 Dextrose 5% in Water 60 ml @ 1 MG/HR 10 mls/hr IV .Q10H LAN Rx#:[id number] DOBUTamine DRIP 500 mg In 250 Dextrose/Water 1 250ml. bag @ 5 MCG/KG/MIN 17.325 mls/hr IV .[id number] [facility] Rx#:[id number] Oral 535 225 Tube Feeding 600 Output: Urine 400 Other: Voiding Method Toilet Toilet Urinal Urinal # Voids 1 # Bowel Movements 1 - Labs CBC & Chem 7: 05/25/23 08:35 05/25/23 08:35 Labs: Abnormal Lab Results - Last 24 Hours (Table) 05/24/23 05/24/23 05/25/23 Range/Units 16:16 19:41 06:01 WBC (3.8-10.6) k/uL Sodium (137-145) mmol/L Chloride (98-107) mmol/L Carbon Dioxide (22-30) mmol/L BUN (9-20) mg/dL Creatinine (0.66-1.25) mg/dL Glucose (74-99) mg/dL POC Glucose (mg/dL) 183 H 127 H 169 H (70-110) mg/dL AST (17-59) U/L ALT (4-49) U/L Alkaline Phosphatase (38-126) U/L 05/25/23 05/25/23 05/25/23 Range/Units 08:35 08:35 11:19 WBC 16.9 H (3.8-10.6) k/uL Sodium 136 L (137-145) mmol/L Chloride 85 L (98-107) mmol/L Carbon Dioxide 35 H (22-30) mmol/L BUN 72 H (9-20) mg/dL Creatinine 2.29 H (0.66-1.25) mg/dL Glucose 186 H (74-99) mg/dL POC Glucose (mg/dL) 191 H (70-110) mg/dL AST 63 H (17-59) U/L ALT 72 H (4-49) U/L Alkaline Phosphatase 134 H (38-126) U/L Microbiology - Last 24 Hours (Table) 05/20/23 07:56 Blood Culture - Final Blood
--- NOTE | 2023-05-25 13:31 | P.PN ---
Subjective Progress Note Date: 05/25/23 Principal diagnosis: R diabetic foot/osteomyelitis Patient is a 52-year-old male with a past medical history significant for right heel diabetic foot infection with an episode of osteomyelitis. Patient completed his antibiotic therapy now presenting back to the hospital with worsening wound, the patient did have a surgical debridement of the right heel wound completed on 01/14/2023 On today's evaluation that is 05/25/2023, the patient remains to be afebrile, the patient is breathing comfortably on room air and denies any shortness of breath, the patient denies any chest pain or cough, patient denies Abdominal pain and no nausea/vomiting or diarrhea , the patient denies pain to the right heel wound area, patient has developed up his PICC line as well as peripheral IV has morning Patient did have a white count is up to 16.9, creatinine is 2.29 Objective - Vital Signs Vital signs: Vital Signs Temp 98.4 F 05/25/23 09:35 Pulse 116 H 05/25/23 09:35 Resp 17 05/25/23 09:35 BP 102/66 05/25/23 09:35 Pulse Ox 94 L 05/25/23 09:35 FiO2 Intake & Output 05/24/23 05/25/23 05/25/23 18:59 06:59 18:59 Intake Total 1235 350 225 Output Total 400 Balance 1235 350 -175 Weight 99.6 kg Intake: Intake, IV Titration 100 350 Amount Bumetanide 10 mg In 100 100 Dextrose 5% in Water 60 ml @ 1 MG/HR 10 mls/hr IV .Q10H LAN Rx#:[id number] DOBUTamine DRIP 500 mg In 250 Dextrose/Water 1 250ml. bag @ 5 MCG/KG/MIN 17.325 mls/hr IV .[id number] LAN Rx#:[id number] Oral 535 225 Tube Feeding 600 Output: Urine 400 Other: Voiding Method Toilet Toilet Urinal Urinal # Voids 1 # Bowel Movements 1 - Exam GENERAL DESCRIPTION: Middle-age male lying in bed in no distress RESPIRATORY SYSTEM: Unlabored breathing , decreased breath sounds at bases HEART: S1 S2 regular rate and rhythm ,no loud murmurs ABDOMEN: Soft , no tenderness EXTREMITIES: Right heel wound with a bone exposed palpable did have some nec rotic tissue however surrounding swelling redness and foul-smelling drainage has improved - Labs CBC & Chem 7: 05/25/23 08:35 05/25/23 08:35 Labs: Abnormal Lab Results - Last 24 Hours (Table) 05/24/23 05/24/23 05/25/23 Range/Units 16:16 19:41 06:01 WBC (3.8-10.6) k/uL Sodium (137-145) mmol/L Chloride (98-107) mmol/L Carbon Dioxide (22-30) mmol/L BUN (9-20) mg/dL Creatinine (0.66-1.25) mg/dL Glucose (74-99) mg/dL POC Glucose (mg/dL) 183 H 127 H 169 H (70-110) mg/dL AST (17-59) U/L ALT (4-49) U/L Alkaline Phosphatase (38-126) U/L 05/25/23 05/25/23 05/25/23 Range/Units 08:35 08:35 11:19 WBC 16.9 H (3.8-10.6) k/uL Sodium 136 L (137-145) mmol/L Chloride 85 L (98-107) mmol/L Carbon Dioxide 35 H (22-30) mmol/L BUN 72 H (9-20) mg/dL Creatinine 2.29 H (0.66-1.25) mg/dL Glucose 186 H (74-99) mg/dL POC Glucose (mg/dL) 191 H (70-110) mg/dL AST 63 H (17-59) U/L ALT 72 H (4-49) U/L Alkaline Phosphatase 134 H (38-126) U/L Microbiology - Last 24 Hours (Table) 05/20/23 07:56 Blood Culture - Final Blood Assessment and Plan (1) Foot osteomyelitis, right Current Visit: Yes Status: Acute Code(s): M86.9 - OSTEOMYELITIS, UNSPECIFIED SNOMED Code(s): 6896823696181890 (2) Type 2 diabetes mellitus with right diabetic foot ulcer Current Visit: Yes Status: Acute Code(s): E11.621 - TYPE 2 DIABETES MELLITUS WITH FOOT ULCER; L97.519 - NON-PRS CHRONIC ULCER OTH PRT RIGHT FOOT W UNSP SEVERITY SNOMED Code(s): 009463403 (3) Wound infection Current Visit: Yes Status: Acute Code(s): T14.8XXA - OTHER INJURY OF UNSPECIFIED BODY REGION, INITIAL ENCOUNTER; L08.9 - LOCAL INFECTION OF THE SKIN AND SUBCUTANEOUS TISSUE, UNSP SNOMED Code(s): 87617736 Plan: 1patient with extensive right diabetic foot infection with evidence of necrosis and foul-smelling drainage send significant deep wound concerning for osteomyelitis, patient is status post debridement and deep culture which is growing Streptococcus and Proteus that is resistant to Unasyn. Also growing Providencia and acinetobacter Iwoffi along with anaerobes 2patient is afebrile the patient white count is slightly up today more likely because the patient has not received his antibiotics the patient has pulled out His PICC line and peripheral IV patient was unable to give a good explanation he will benefit from psych evaluation nursing staff try to obtain a peripheral IV and restart his Zosyn Dictation was produced using [employer] dictation software. please excuse any grammatical, word or spelling errors. Time with Patient: Less than 30
[2023-05-25 16:23] LABS: Glucose,Whole Blood 152 mg/dL (70-110)
--- NOTE | 2023-05-25 17:04 | P.PN ---
Subjective Progress Note Date: 05/25/23 Follow-up for acute kidney injury. Urine output not documented. Objective - Vital Signs Vital signs: Vital Signs Temp 97.8 F 05/25/23 16:00 Pulse 99 05/25/23 16:00 Resp 18 05/25/23 16:00 BP 96/60 05/25/23 16:00 Pulse Ox 97 05/25/23 16:00 FiO2 Intake & Output 05/24/23 05/25/23 05/25/23 18:59 06:59 18:59 Intake Total 1235 350 225 Output Total 400 Balance 1235 350 -175 Weight 99.6 kg Intake: Intake, IV Titration 100 350 Amount Bumetanide 10 mg In 100 100 Dextrose 5% in Water 60 ml @ 1 MG/HR 10 mls/hr IV .Q10H LAN Rx#:[id number] DOBUTamine DRIP 500 mg In 250 Dextrose/Water 1 250ml. bag @ 5 MCG/KG/MIN 17.325 mls/hr IV .[id number] [facility] Rx#:[id number] Oral 535 225 Tube Feeding 600 Output: Urine 400 Other: Voiding Method Toilet Toilet Toilet Urinal Urinal Urinal # Voids 1 # Bowel Movements 1 - Exam No acute distress S1-S2 heard Decreased breath sounds Abdomen soft Edema - Labs CBC & Chem 7: 05/25/23 08:35 05/25/23 08:35 Labs: Abnormal Lab Results - Last 24 Hours (Table) 05/24/23 05/25/23 05/25/23 Range/Units 19:41 06:01 08:35 WBC (3.8-10.6) k/uL Sodium 136 L (137-145) mmol/L Chloride 85 L (98-107) mmol/L Carbon Dioxide 35 H (22-30) mmol/L BUN 72 H (9-20) mg/dL Creatinine 2.29 H (0.66-1.25) mg/dL Glucose 186 H (74-99) mg/dL POC Glucose (mg/dL) 127 H 169 H (70-110) mg/dL AST 63 H (17-59) U/L ALT 72 H (4-49) U/L Alkaline Phosphatase 134 H (38-126) U/L 05/25/23 05/25/23 05/25/23 Range/Units 08:35 11:19 16:19 WBC 16.9 H (3.8-10.6) k/uL Sodium (137-145) mmol/L Chloride (98-107) mmol/L Carbon Dioxide (22-30) mmol/L BUN (9-20) mg/dL Creatinine (0.66-1.25) mg/dL Glucose (74-99) mg/dL POC Glucose (mg/dL) 191 H 152 H (70-110) mg/dL AST (17-59) U/L ALT (4-49) U/L Alkaline Phosphatase (38-126) U/L Microbiology - Last 24 Hours (Table) 05/20/23 07:56 Blood Culture - Final Blood Assessment and Plan Assessment: #1 acute kidney injury secondary to ATN/CRS. -Baseline creatinine 1.23 MG per DL. -Urine analysis benign. -Renal ultrasound no hydronephrosis. #2 CHF with systolic dysfunction EF of 20%. #3 volume overload #4 diabetes mellitus #5 hypotension. Plan: #1 renal function high but stable. #2 continue with inotropic support and diuretics. #3 discontinue Aldactone with hypotensive episodes. #4 no acute indication for renal replacement therapy at this time. #5 avoid nephrotoxic agents
[2023-05-25] MEDS: metOLazone 5 MG TAB PO SCH (17:07)
[2023-05-25 19:27] LABS: Glucose,Whole Blood 107 mg/dL (70-110)
[2023-05-26] MEDS: BUMETANIDE 10 MG in DEXTROSE 5% IN WATER 60 ML IV SCH ×4 (01:43→12:16)
[2023-05-26] MEDS: PIPERACILLIN-TAZOBACTAM 3.375 GM in SODIUM CHLORIDE 0.9% 100 ML IVPB SCH ×3 (02:29→19:05)
[2023-05-26] MEDS: DOBUTamine DRIP 500 MG in DEXTROSE/WATER 1 250ML.BAG IV SCH ×2 (02:29→10:18)
[2023-05-26] MEDS: MORPHINE SULFATE IR 15 MG TABLET PO PRN ×4 (04:04→21:28)
[2023-05-26 05:51] LABS: Glucose,Whole Blood 141 mg/dL (70-110)
[2023-05-26] MEDS: INSULIN ASPART (NovoLOG) 100 UNIT/ML VIAL SQ SCH ×4 (06:43→21:27)
[2023-05-26] MEDS: MIDODRINE 5 MG TAB PO SCH ×3 (06:45→17:39)
[2023-05-26] MEDS: INSULIN DETEMIR (LEVEMIR) 100 UNIT/ML SYR SQ SCH (06:45)
[2023-05-26] MEDS: ATORVASTATIN 40 MG TAB PO SCH (08:50)
[2023-05-26] MEDS: DULoxetine HCL 60 MG CAPSULE.DR PO SCH ×2 (08:50→21:27)
[2023-05-26] MEDS: CYCLOBENZAPRINE 10 MG TAB PO SCH ×4 (08:50→21:27)
[2023-05-26] MEDS: hydrALAZINE HCL 10 MG TAB PO SCH ×3 (08:50→21:27)
[2023-05-26] MEDS: NICOTINE 14MG/24HR PATCH TRANSDERM SCH (08:51)
[2023-05-26] MEDS: ASPIRIN 81 MG PO SCH (08:51)
[2023-05-26] MEDS: ISOSORBIDE DINITRATE 10 MG TAB PO SCH ×3 (08:51→22:47)
[2023-05-26] MEDS: metOLazone 5 MG TAB PO SCH (08:51)
[2023-05-26 10:10] LABS: Basophils # (A) 0.1 k/uL (0-0.2); Basophils % (A) 1 %; Eosinophils % (A) 8 %; HCT 43.1 % (39.0-53.0); HGB 13.4 gm/dL (13.0-17.5); Lymphocytes # (A) 1.8 k/uL (1.0-4.8); Lymphocytes % (A) 15 %; MCH 27.6 pg (25.0-35.0); MCHC 31.2 g/dL (31.0-37.0); MCV 88.4 fL (80.0-100.0); Mean Platelet Volume 8.6; Monocytes # (A) 0.8 k/uL (0-1.0); Monocytes % (A) 6 %; Neutrophils # (A) 8.6 k/uL (1.3-7.7); Neutrophils % (A) 69 %; Platelet Count 238 k/uL (150-450); RBC 4.87 m/uL (4.30-5.90); RDW 14.3 % (11.5-15.5); WBC 12.5 k/uL (3.8-10.6)
[2023-05-26 10:21] LABS: ALT 53 U/L (4-49); AST 45 U/L (17-59); African American GFR (CKD) 41 (>60 ml/min/1.73 sqM); Albumin 3.6 g/dL (3.5-5.0); Alkaline Phosphatase 122 U/L (38-126); Anion Gap 14 mmol/L; Blood Urea Nitrogen 75 mg/dL (9-20); Calcium 9.1 mg/dL (8.4-10.2); Carbon Dioxide 35 mmol/L (22-30); Chloride 84 mmol/L (98-107); Glucose 224 mg/dL (74-99); Non-African American GFR(CKD) 35 (>60 ml/min/1.73 sqM); Potassium 3.6 mmol/L (3.5-5.1); Sodium 133 mmol/L (137-145); Total Bilirubin 1.2 mg/dL (0.2-1.3); Total Protein 7.8 g/dL (6.3-8.2)
[2023-05-26 11:24] LABS: Glucose,Whole Blood 203 mg/dL (70-110)
[2023-05-26] MEDS ORDERED: Potassium Replacement Protocol 1 EACH MISC MISCELLANE PRN (11:43)
[2023-05-26] MEDS ORDERED: POTASSIUM CHLORIDE ER 20 MEQ TAB.ER PO STA (12:04)
--- NOTE | 2023-05-26 13:46 | P.PN ---
Subjective Progress Note Date: 05/25/23 History of present illness: This is a 52-year-old male patient of Dr. Yared Abbasi with past medical history of nonischemic cardiomyopathy, hypertension, dyslipidemia, status post AICD, diabetes. We have been asked to evaluate the patient for run of V. tach. Patient has presented to the hospital due to right heel diabetic foot ulcer with osteomyelitis status post debridement. Patient had a run of nonsustained ventricular tachycardia of 13 beats. He does have AICD as noted above. Patient denies having any chest pain. Noted that patient has now been resumed on Entresto due to hypotension. Patient is currently on IV Lasix 60 mg every 12 hours. Sodium 136, potassium 4.3, BUN 67 creatinine 2.05. WBC 15.4, hemoglobin 12.4. Home cardiac medications: Lasix 80 mg twice daily, Entresto 24 mg26 mg twice daily, Aldactone 25 mg daily [address] [facility] Echocardiogram 06/2022 revealed EF less than 20% with global hypokinesia. Progress Note Date: 05/19/23 Progress note: Patient's creatinine has continued to decline on diuretic therapy. His EF is 10-15%. Creatinine 1.5-on admission, with diuretic therapy creatinine has increased to 2.91. I will start him on low-dose dobutamine running at 5 mcg/h. Transfer patient to [address] [place], [place] [address]etry. BP 91/67, Urine output was not documented accurately 05/20 Patient is seen today on the cardiac stepdown unit. Patient was started on dobutamine drip yesterday he states is urinating about the same amount yesterday yesterday. He continues to have edema up into the thigh area and also having acute kidney injury. In general he feels he is okay. No significant pain in his foot. Blood pressure 91/57, heart rate in the 70s, afebrile, pulse ox 96% on room air. BUN 80 creatinine 2.74. Nephrology is switching patient to Bumex drip. 05/21 The patient does not appear to be urinating very much for not all of his output is being measured as he is sometimes using the bathroom. Patient is currently on dobutamine drip at 2.5 g, Bumex 2 mg IV twice daily and Aldactone 12.5 mg daily. Yesterday we added in Isordil, metolazone and hydralazine. Systolic blood pressures of been in the 90s, heart rates in the 60s to 80s. Repeat blood work reveals BUN 88 and creatinine 2.74. 05/22 Patient is seen today in follow-up. He is continued on dopamine drip currently at 5 g, Bumex was increased yesterday to 3 mg IV twice daily and patient has been continued on Isordil metolazone and Aldactone. Patient has had improvement in his weight down 4 kg. I&O's do not appear to be accurate. Systolic blood p ressure running in the 90s, pulse ox 90% on room air, heart rate anywhere from 66-95. Repeat blood work reveals improving of the renal function with a BUN of 85 creatinine 2.5 05/23 Patient seen and examined. Denies any SOB. Having some mild improvement in LE edema. Remains on dobutmaine drip at 2.5 and IV bumex and zaroxolyn. Cr mildly improved today. 05/24 Patient denies shortness of breath. He has no chest pain or pressure. He states he feels tired and has not been sleeping well here. He has leg pain. Lower extremity edema is slowly improving. He states he is urinating a lot. He is on a Bumex drip and dopamine drip. Hydralazine and Isordil were held this morning probably for MAP less than 65. 05/25 Patient's lower extremity edema is much improving. He denies having any fever or chills. He remains on dobutamine and Bumex drip but unfortunately pulled his PICC line out this morning and these need to be restarted. He has a negative fluid balance of 5550. Weight is down 16 kg since admission. Heart rate is in the 90s to low 100s. Blood pressure 102/66, pulse ox 94% on room air. WBC 16.9. BUN 72 and creatinine 2.29, potassium 4.1. CO2 35. Liver function tests are elevated. 05/26 Patient seen and examined. Patient remains on dobutamine at 5. Creatinine mi ldly improved to 2.0. He does have significantly decreased in lower extremity edema and does not appear to have much more edema. Admits his shortness breath is mildly improved. Physical examination: Gen: This is a 52-year-old male. He is resting on the edge of the bed and appears comfortable and in no acute distress. VS: reviewed HEENT: Head is atraumatic, normocephalic. Pupils equal, round. Sclerae is anicteric. NECK: Supple. No JVD. LUNGS: Clear to auscultation. No wheezes or rhonchi. No intercostal retractions. HEART: Regular rate and rhythm. No murmur. ABDOMEN: Soft No tenderness. EXTREMITIES: Dressing on the right foot. 2 plus pedal edema. No calf tenderness. NEUROLOGICAL: Patient is awake, alert and oriented x3. Assessment: Cardiogenic shock cardiorenal syndrome Acute systolic heart failure exacerbation Nonsustained ventricular tachycardia, expected Diabetic foot ulcer Nonischemic cardiomyopathy EF 20%, status post AICD Hypertension Dyslipidemia Type II Diabetes Smoker, No compliance Plan: Patient appears nearly euvolemic. We will discontinue dobutamine drip and monitor. Hopefully if she is able to maintain and eventually switch over to oral medications hopefully discharge home soon. Continue Bumex drip per nephrology Continue Aldactone 12.5 mg daily Stop Metoprolol due to cardiorenal Continue patient on Isordil 10 mg 3 times daily, Hydralazine to reduce afterload, parameters in place to hold if map less than 65 Poor prognosis. Patient is showing slow improvement. Objective - Vital Signs Vital signs: Vital Signs Temp 98.2 F 05/26/23 08:30 Pulse 80 05/26/23 08:30 Resp 20 05/26/23 08:30 BP 103/53 05/26/23 08:30 Pulse Ox 96 05/26/23 08:30 FiO2 Intake & Output 05/25/23 05/26/23 05/26/23 18:59 06:59 18:59 Intake Total 550 250 810.424 Output Total 400 Balance 150 250 810.424 Weight 99 kg Intake: Intake, IV Titration 100 250 235.424 Amount Bumetanide 10 mg In 100 100 Dextrose 5% in Water 60 ml @ 1 MG/HR 10 mls/hr IV .Q10H LAN Rx#:[id number] DOBUTamine DRIP 500 mg In 250 135.424 Dextrose/Water 1 250ml. bag @ 5 MCG/KG/MIN 17.325 mls/hr IV .[id number] LAN Rx#:[id number] Oral 450 575 Output: Urine 400 Other: Voiding Method Toilet Toilet Toilet Urinal Urinal - Labs CBC & Chem 7: 05/26/23 09:30 05/26/23 09:30 Labs: Abnormal Lab Results - Last 24 Hours (Table) 05/25/23 05/26/23 05/26/23 Range/Units 16:19 05:46 09:30 WBC 12.5 H (3.8-10.6) k/uL Neutrophils # 8.6 H (1.3-7.7) k/uL Eosinophils # 1.0 H (0-0.7) k/uL Sodium (137-145) mmol/L Chloride (98-107) mmol/L Carbon Dioxide (22-30) mmol/L BUN (9-20) mg/dL Creatinine (0.66-1.25) mg/dL Glucose (74-99) mg/dL POC Glucose (mg/dL) 152 H 141 H (70-110) mg/dL ALT (4-49) U/L 05/26/23 05/26/23 Range/Units 09:30 11:21 WBC (3.8-10.6) k/uL Neutrophils # (1.3-7.7) k/uL Eosinophils # (0-0.7) k/uL Sodium 133 L (137-145) mmol/L Chloride 84 L (98-107) mmol/L Carbon Dioxide 35 H (22-30) mmol/L BUN 75 H (9-20) mg/dL Creatinine 2.08 H (0.66-1.25) mg/dL Glucose 224 H (74-99) mg/dL POC Glucose (mg/dL) 203 H (70-110) mg/dL ALT 53 H (4-49) U/L Microbiology - Last 24 Hours (Table) 05/20/23 07:56 Blood Culture - Final Blood
--- NOTE | 2023-05-26 14:19 | P.PN ---
Subjective Progress Note Date: 05/26/23 52-year-old patient, follows with Dr. Rodríguez. Chronic stable medical condition include CHF EF less than 20%, COPD, diabetes mellitus type 2, hypertension, hyperlipidemia, obstructive sleep apnea, anxiety, AICD, lower extremity venous insufficiency. Patient had lower extremity wounds and has been followed by ID and Dr. Lugo from vascular. Patient has not been able to make a wound care center regularly because of transportation issues. Now presents with worsening wound on the right foot. Has had previous debridement of same. It is draining. Somewhat foul-smelling.. Patient had some chills. May 15: Patient had right foot wound debridement with Dr. Lugo. Currently in dressing. Patient received IV fluids from the ER. Stop the same. IV Lasix. Patient is on IV Unasyn and IV vancomycin per ID. Significant edema. May 16: IV Lasix 60 mg every 12. Unclear if he is making much urine. IV vancomycin was discontinued yesterday because of renal function. Some decrease in edema. Oral intake good. IV Unasyn. Being followed by ID. May 17: Making good urine. I's and O not well documented. Remains on IV Lasix 60:12. Still a significant edema. Breathing is stable. IV Unasyn. Creatinine 2.05. I discussed with Dr. Lugo from vascular. Patient might need a amputation down the road. Patient has several social issues going on. May 18: Patient placed on IV Bumex. Making urine. Significant edema present. Breathing much better. Creatinine going up. Being followed by cardiology and nephrology. May 19: Today remains on IV Bumex 2 mg every 12. We started on dobutamine drip and both the cardiology selective floor. IV Zosyn to continue. Tolerating diet well. Breathing stable. Lower extremity edema. Creatinine worsening May 20: Patient is moved to the selective cardiology floor. Remains on IV dobutamine. An IV Bumex bolus. Urine output. Noted tolerating diet. Also on Zaroxolyn. Creatinine has plateaued off May 21: Tired. Oral intake fair. Remains on IV dobutamine drip and IV Bumex and bolus. Making urine. Some improvement in creatinine. Remains on IV Zosyn. May 22: Bumex was increased to 3 mg twice a day to yesterday. Remains on dobutamine drip. IV Zosyn. Oral intake fair. Slight improvement in creatinine. Slight improvement in edema. May 23: Patient seen and evaluated bedside, continue patient on Bumex and dobutamine drip, on IV antibiotic patient is alert and oriented 3 does have lower extremity edema, and remains on room air hypotensive systolic pressure ranging from 8200 with map of 65, serum chemistry pending continued to follow up on CBC and basic metabolic panel 05/24. Patient seen and examined. States he feels much better compared to yesterday. Tolerating diet. Denies any lightheadedness or dizziness. Swelling of lower extremities are improved 05/25. Patient seen and examined. Patient pulled out his IVs and PICC line overnight. IV access had to be achieved again. Patient not confused this morning. Answering questions appropriately. Lab work WBC 16.9, hemoglobin 13.7, sodium 136, potassium 4.1, BUN 72, creatinine 2.29. 05/26. Patient seen and examined, sitting at the edge of the bed upright, denies any shortness of breath at rest, get short of breath on exertion. Lab work done showed WBC 12.5, hemoglobin 13.4, sodium 133, BUN 75, creatinine 2.08. REVIEW OF SYSTEMS: CONSTITUTIONAL: No fever, no malaise,. CARDIOVASCULAR: No chest pain, no palpitations, no syncope. PULMONARY: No shortness of breath, no cough, GASTROINTESTINAL: No diarrhea, no nausea, no vomiting, no abdominal pain. NEUROLOGICAL: No headaches, no weakness, PHYSICAL EXAMINATION: GENERAL: The patient is alert and oriented x3, not in any acute distress. Well developed, well nourished. HEENT: Pupils are round and equally reacting to light. EOMI. No scleral icterus. No conjunctival pallor. Normocephalic, atraumatic. No pharyngeal erythema. No thyromegaly. CARDIOVASCULAR: S1 and S2 present. No murmurs, rubs, or gallops. PULMONARY: Chest is clear to auscultation, no wheezing or crackles. ABDOMEN: Soft, nontender, nondistended, normoactive bowel sounds. No palpable organomegaly. MUSCULOSKELETAL: No joint swelling or deformity. EXTREMITIES: 1+ pitting edema lower extremity bilaterally. Right lower extremity bandage seen. Right heel wound with a bone exposed NEUROLOGICAL: Gross neurological examination did not reveal any focal deficits. SKIN: No rashes. Assessment and plan Diabetic foot ulcer with right lower extremity cellulitis * Sepsis secondary to diabetic foot ulcer * Acute on chronic congestive heart failure with ejection fraction 20% * COPD * Diabetes mellitus type 2 * Acute kidney injury on chronic kidney disease stage III suspect cardiorenal syndrome * History of anxiety * Chronic nicotine use * Diabetic neuropathy Monitor vital signs Monitor CBC Monitor CMP Continue telemetry monitoring Regarding Diabetic foot ulcer, patient seen by vascular, ID, had wound de bridement. Wound cultures show Proteus vulgaris, Streptococcus agalactiae group B, continue patient on IV antibiotics, on IV Zosyn, ID following In regards to sepsis, blood cultures and wound cultures reviewed continue IV antibiotic In regards to congestive heart failure continue patient on Bumex drip, monitor intake and output, continue Aldactone, Isosordil and Zaroxolyn cardiology following In regards to renal failure, monitor renal functions, continue Bumex drip, nephrology following Labs and medication were reviewed.. Continue same treatment. Continue with symptomatic treatment. Resume home medication. Monitor labs and vitals. DVT and GI prophylaxis. Further recommendations as per clinical course of the patient Dictation was produced using [employer] dictation software. please excuse any grammatical, word or spelling errors. Objective - Vital Signs Vital signs: Vital Signs Temp 98.4 F 05/26/23 12:45 Pulse 93 05/26/23 12:45 Resp 16 05/26/23 12:45 BP 108/64 05/26/23 12:45 Pulse Ox 93 L 05/26/23 12:45 FiO2 Intake & Output 05/25/23 05/26/23 05/26/23 18:59 06:59 18:59 Intake Total 550 250 872.217 Output Total 400 Balance 150 250 872.217 Weight 99 kg Intake: Intake, IV Titration 100 250 297.217 Amount Bumetanide 10 mg In 100 100 Dextrose 5% in Water 60 ml @ 1 MG/HR 10 mls/hr IV .Q10H LAN Rx#:[id number] DOBUTamine DRIP 500 mg In 250 197.217 Dextrose/Water 1 250ml. bag @ 5 MCG/KG/MIN 17.325 mls/hr IV .[id number] LAN Rx#:[id number] Oral 450 575 Output: Urine 400 Other: Voiding Method Toilet Toilet Toilet Urinal Urinal - Labs CBC & Chem 7: 05/26/23 09:30 05/26/23 09:30 Labs: Abnormal Lab Results - Last 24 Hours (Table) 05/25/23 05/26/23 05/26/23 Range/Units 16:19 05:46 09:30 WBC 12.5 H (3.8-10.6) k/uL Neutrophils # 8.6 H (1.3-7.7) k/uL Eosinophils # 1.0 H (0-0.7) k/uL Sodium (137-145) mmol/L Chloride (98-107) mmol/L Carbon Dioxide (22-30) mmol/L BUN (9-20) mg/dL Creatinine (0.66-1.25) mg/dL Glucose (74-99) mg/dL POC Glucose (mg/dL) 152 H 141 H (70-110) mg/dL ALT (4-49) U/L 05/26/23 05/26/23 Range/Units 09:30 11:21 WBC (3.8-10.6) k/uL Neutrophils # (1.3-7.7) k/uL Eosinophils # (0-0.7) k/uL Sodium 133 L (137-145) mmol/L Chloride 84 L (98-107) mmol/L Carbon Dioxide 35 H (22-30) mmol/L BUN 75 H (9-20) mg/dL Creatinine 2.08 H (0.66-1.25) mg/dL Glucose 224 H (74-99) mg/dL POC Glucose (mg/dL) 203 H (70-110) mg/dL ALT 53 H (4-49) U/L Microbiology - Last 24 Hours (Table) 05/20/23 07:56 Blood Culture - Final Blood
--- NOTE | 2023-05-26 15:27 | P.PN ---
Subjective Progress Note Date: 05/26/23 Follow-up for acute kidney injury. Urine output documented 400 ML's. Objective - Vital Signs Vital signs: Vital Signs Temp 98.4 F 05/26/23 12:45 Pulse 93 05/26/23 14:00 Resp 16 05/26/23 14:00 BP 108/64 05/26/23 12:45 Pulse Ox 93 L 05/26/23 12:45 FiO2 Intake & Output 05/25/23 05/26/23 05/26/23 18:59 06:59 18:59 Intake Total 550 250 872.217 Output Total 400 Balance 150 250 872.217 Weight 99 kg Intake: Intake, IV Titration 100 250 297.217 Amount Bumetanide 10 mg In 100 100 Dextrose 5% in Water 60 ml @ 1 MG/HR 10 mls/hr IV .Q10H LAN Rx#:[id number] DOBUTamine DRIP 500 mg In 250 197.217 Dextrose/Water 1 250ml. bag @ 5 MCG/KG/MIN 17.325 mls/hr IV .[id number] LAN Rx#:[id number] Oral 450 575 Output: Urine 400 Other: Voiding Method Toilet Toilet Toilet Urinal Urinal - Exam No acute distress S1-S2 heard Decreased breath sounds Abdomen soft Edema - Labs CBC & Chem 7: 05/26/23 09:30 05/26/23 09:30 Labs: Abnormal Lab Results - Last 24 Hours (Table) 05/25/23 05/26/23 05/26/23 Range/Units 16:19 05:46 09:30 WBC 12.5 H (3.8-10.6) k/uL Neutrophils # 8.6 H (1.3-7.7) k/uL Eosinophils # 1.0 H (0-0.7) k/uL Sodium (137-145) mmol/L Chloride (98-107) mmol/L Carbon Dioxide (22-30) mmol/L BUN (9-20) mg/dL Creatinine (0.66-1.25) mg/dL Glucose (74-99) mg/dL POC Glucose (mg/dL) 152 H 141 H (70-110) mg/dL ALT (4-49) U/L 05/26/23 05/26/23 Range/Units 09:30 11:21 WBC (3.8-10.6) k/uL Neutrophils # (1.3-7.7) k/uL Eosinophils # (0-0.7) k/uL Sodium 133 L (137-145) mmol/L Chloride 84 L (98-107) mmol/L Carbon Dioxide 35 H (22-30) mmol/L BUN 75 H (9-20) mg/dL Creatinine 2.08 H (0.66-1.25) mg/dL Glucose 224 H (74-99) mg/dL POC Glucose (mg/dL) 203 H (70-110) mg/dL ALT 53 H (4-49) U/L Microbiology - Last 24 Hours (Table) 05/20/23 07:56 Blood Culture - Final Blood Assessment and Plan Assessment: #1 acute kidney injury secondary to ATN/CRS. -Baseline creatinine 1.23 MG per DL. -Urine analysis benign. -Renal ultrasound no hydronephrosis. #2 CHF with systolic dysfunction EF of 20%. #3 volume overload #4 diabetes mellitus #5 hypotension. Plan: #1 renal function high but stable. #2 continue with inotropic support and diuretics. #3 discontinued Aldactone with hypotensive episodes. Blood pressures better #4 no acute indication for renal replacement therapy at this time. #5 avoid nephrotoxic agents
--- NOTE | 2023-05-26 15:45 | P.PN ---
Subjective Progress Note Date: 05/26/23 Principal diagnosis: R diabetic foot/osteomyelitis Patient is a 52-year-old male with a past medical history significant for right heel diabetic foot infection with an episode of osteomyelitis. Patient completed his antibiotic therapy now presenting back to the hospital with worsening wound, the patient did have a surgical debridement of the right heel wound completed on 01/14/2023 On today's evaluation that is 05/26/2023, the patient denies any fever or chills, the patient is breathing comfortably on room air and no need for supplemental oxygen, the patient denies any chest pain or cough, patient denies nausea/vomiting or diarrhea and no abdominal pain the patient denies pain to the right heel wound area, and the systolic was able to establish to new IVs Patient did have a white count is down to 12.5, creatinine is 2.08 Objective - Vital Signs Vital signs: Vital Signs Temp 98.4 F 05/26/23 12:45 Pulse 93 05/26/23 12:45 Resp 16 05/26/23 12:45 BP 108/64 05/26/23 12:45 Pulse Ox 93 L 05/26/23 12:45 FiO2 Intake & Output 05/25/23 05/26/23 05/26/23 18:59 06:59 18:59 Intake Total 550 250 872.217 Output Total 400 Balance 150 250 872.217 Weight 99 kg Intake: Intake, IV Titration 100 250 297.217 Amount Bumetanide 10 mg In 100 100 Dextrose 5% in Water 60 ml @ 1 MG/HR 10 mls/hr IV .Q10H LAN Rx#:[id number] DOBUTamine DRIP 500 mg In 250 197.217 Dextrose/Water 1 250ml. bag @ 5 MCG/KG/MIN 17.325 mls/hr IV .[id number] LAN Rx#:[id number] Oral 450 575 Output: Urine 400 Other: Voiding Method Toilet Toilet Toilet Urinal Urinal - Exam GENERAL DESCRIPTION: Middle-age male lying in bed in no distress RESPIRATORY SYSTEM: Unlabored breathing , decreased breath sounds at bases HEART: S1 S2 regular rate and rhythm ,no loud murmurs ABDOMEN: Soft , no tenderness EXTREMITIES: Right heel wound is currently dressed minimal drainage on the dressing - Labs CBC & Chem 7: 05/26/23 09:30 05/26/23 09:30 Labs: Abnormal Lab Results - Last 24 Hours (Table) 05/25/23 05/26/23 05/26/23 Range/Units 16:19 05:46 09:30 WBC 12.5 H (3.8-10.6) k/uL Neutrophils # 8.6 H (1.3-7.7) k/uL Eosinophils # 1.0 H (0-0.7) k/uL Sodium (137-145) mmol/L Chloride (98-107) mmol/L Carbon Dioxide (22-30) mmol/L BUN (9-20) mg/dL Creatinine (0.66-1.25) mg/dL Glucose (74-99) mg/dL POC Glucose (mg/dL) 152 H 141 H (70-110) mg/dL ALT (4-49) U/L 05/26/23 05/26/23 Range/Units 09:30 11:21 WBC (3.8-10.6) k/uL Neutrophils # (1.3-7.7) k/uL Eosinophils # (0-0.7) k/uL Sodium 133 L (137-145) mmol/L Chloride 84 L (98-107) mmol/L Carbon Dioxide 35 H (22-30) mmol/L BUN 75 H (9-20) mg/dL Creatinine 2.08 H (0.66-1.25) mg/dL Glucose 224 H (74-99) mg/dL POC Glucose (mg/dL) 203 H (70-110) mg/dL ALT 53 H (4-49) U/L Microbiology - Last 24 Hours (Table) 05/20/23 07:56 Blood Culture - Final Blood Assessment and Plan (1) Foot osteomyelitis, right Current Visit: Yes Status: Acute Code(s): M86.9 - OSTEOMYELITIS, UNSPECIFIED SNOMED Code(s): 5848320128446981 (2) Type 2 diabetes mellitus with right diabetic foot ulcer Current Visit: Yes Status: Acute Code(s): E11.621 - TYPE 2 DIABETES MELLITUS WITH FOOT ULCER; L97.519 - NON-PRS CHRONIC ULCER OTH PRT RIGHT FOOT W UNSP SEVERITY SNOMED Code(s): 129729323 (3) Wound infection Current Visit: Yes Status: Acute Code(s): T14.8XXA - OTHER INJURY OF UNSPECIFIED BODY REGION, INITIAL ENCOUNTER; L08.9 - LOCAL INFECTION OF THE SKIN AND SUBCUTANEOUS TISSUE, UNSP SNOMED Code(s): 58897913 Plan: 1patient with extensive right diabetic foot infection with evidence of necrosis and foul-smelling drainage send significant deep wound concerning for osteomyelitis, patient is status post debridement and deep culture which is growing Streptococcus and Proteus that is resistant to Unasyn. Also growing Providencia and acinetobacter Iwoffi along with anaerobes 2patient is afebrile the patient white count is trending down and we'll try to obtain a PICC line and continue with the Zosyn Dictation was produced using [employer] dictation software. please excuse any grammatical, word or spelling errors. Time with Patient: Less than 30
[2023-05-26 16:12] LABS: Glucose,Whole Blood 79 mg/dL (70-110)
[2023-05-26 20:16] LABS: Glucose,Whole Blood 163 mg/dL (70-110)
[2023-05-27] MEDS: BUMETANIDE 10 MG in DEXTROSE 5% IN WATER 60 ML IV SCH ×6 (00:45→18:20)
[2023-05-27] MEDS: PIPERACILLIN-TAZOBACTAM 3.375 GM in SODIUM CHLORIDE 0.9% 100 ML IVPB SCH ×3 (03:19→18:11)
[2023-05-27 06:00] LABS: Glucose,Whole Blood 152 mg/dL (70-110)
[2023-05-27] MEDS: INSULIN ASPART (NovoLOG) 100 UNIT/ML VIAL SQ SCH ×4 (06:20→22:44)
[2023-05-27] MEDS: INSULIN DETEMIR (LEVEMIR) 100 UNIT/ML SYR SQ SCH (06:20)
[2023-05-27] MEDS: MIDODRINE 5 MG TAB PO SCH ×3 (06:47→18:11)
[2023-05-27 07:52] LABS: Glucose,Whole Blood 137 mg/dL (70-110)
[2023-05-27 08:05] LABS: HCT 47.6 % (39.0-53.0); MCH 27.7 pg (25.0-35.0); MCHC 31.5 g/dL (31.0-37.0); MCV 87.9 fL (80.0-100.0); Mean Platelet Volume 8.8; Platelet Count 266 k/uL (150-450); RBC 5.42 m/uL (4.30-5.90); RDW 14.3 % (11.5-15.5); WBC 15.3 k/uL (3.8-10.6)
[2023-05-27 08:31] LABS: ALT 54 U/L (4-49); AST 46 U/L (17-59); African American GFR (CKD) 36 (>60 ml/min/1.73 sqM); Albumin 4.1 g/dL (3.5-5.0); Alkaline Phosphatase 141 U/L (38-126); Anion Gap 16 mmol/L; Blood Urea Nitrogen 97 mg/dL (9-20); Calcium 9.6 mg/dL (8.4-10.2); Carbon Dioxide 36 mmol/L (22-30); Chloride 81 mmol/L (98-107); Glucose 147 mg/dL (74-99); Non-African American GFR(CKD) 31 (>60 ml/min/1.73 sqM); Potassium 3.7 mmol/L (3.5-5.1); Sodium 133 mmol/L (137-145); Total Bilirubin 1.3 mg/dL (0.2-1.3); Total Protein 8.7 g/dL (6.3-8.2)
[2023-05-27] MEDS: ATORVASTATIN 40 MG TAB PO SCH (09:26)
[2023-05-27] MEDS: NICOTINE 14MG/24HR PATCH TRANSDERM SCH (09:26)
[2023-05-27] MEDS: ISOSORBIDE DINITRATE 10 MG TAB PO SCH ×3 (09:26→23:06)
[2023-05-27] MEDS: CYCLOBENZAPRINE 10 MG TAB PO SCH ×4 (09:27→22:44)
[2023-05-27] MEDS: DULoxetine HCL 60 MG CAPSULE.DR PO SCH ×2 (09:27→22:44)
[2023-05-27] MEDS: MORPHINE SULFATE IR 15 MG TABLET PO PRN ×2 (09:27→22:50)
[2023-05-27] MEDS: metOLazone 5 MG TAB PO SCH (09:27)
[2023-05-27] MEDS: hydrALAZINE HCL 10 MG TAB PO SCH ×3 (09:27→22:44)
[2023-05-27] MEDS: ASPIRIN 81 MG PO SCH (09:27)
[2023-05-27] MEDS ORDERED: POTASSIUM CHLORIDE ER 20 MEQ TAB.ER PO STA (11:03)
--- NOTE | 2023-05-27 11:05 | P.PN ---
Subjective Patient is seen in follow-up for acute kidney injury. Maintained on Bumex drip. Nonoliguric. Weight trending down. No chest pain or shortness of breath. Blood pressure stable. Vital signs are stable. General: No acute distress. HEENT: Head exam is unremarkable. LUNGS: No audible rhonchi or wheezes. HEART: Rate and Rhythm are regular. ABDOMEN: Nontender. EXTREMITITES: 1+ edema. Lower extremities wrapped. Objective - Vital Signs Vital signs: Vital Signs Temp 98.0 F 05/27/23 08:00 Pulse 101 H 05/27/23 08:00 Resp 18 05/27/23 08:00 BP 141/63 05/27/23 08:00 Pulse Ox 95 05/27/23 08:00 FiO2 Intake & Output 05/26/23 05/27/23 05/27/23 18:59 06:59 18:59 Intake Total 982.217 698.333 240 Output Total 200 Balance 982.217 498.333 240 Weight 92.1 kg Intake: Intake, IV Titration 297.217 158.333 Amount Bumetanide 10 mg In 100 158.333 Dextrose 5% in Water 60 ml @ 1 MG/HR 10 mls/hr IV .Q10H LAN Rx#:[id number] DOBUTamine DRIP 500 mg In 197.217 Dextrose/Water 1 250ml. bag @ 5 MCG/KG/MIN 17.325 mls/hr IV .[id number] LAN Rx#:[id number] Oral 685 540 240 Output: Urine 200 Other: Voiding Method Toilet Toilet # Voids 2 - Labs CBC & Chem 7: 05/27/23 07:47 05/27/23 07:47 Labs: Abnormal Lab Results - Last 24 Hours (Table) 05/26/23 05/26/23 05/27/23 Range/Units 11:21 20:10 05:58 WBC (3.8-10.6) k/uL Sodium (137-145) mmol/L Chloride (98-107) mmol/L Carbon Dioxide (22-30) mmol/L BUN (9-20) mg/dL Creatinine (0.66-1.25) mg/dL Glucose (74-99) mg/dL POC Glucose (mg/dL) 203 H 163 H 152 H (70-110) mg/dL ALT (4-49) U/L Alkaline Phosphatase (38-126) U/L Total Protein (6.3-8.2) g/dL 05/27/23 05/27/23 05/27/23 Range/Units 07:47 07:47 07:50 WBC 15.3 H (3.8-10.6) k/uL Sodium 133 L (137-145) mmol/L Chloride 81 L (98-107) mmol/L Carbon Dioxide 36 H (22-30) mmol/L BUN 97 H (9-20) mg/dL Creatinine 2.33 H (0.66-1.25) mg/dL Glucose 147 H (74-99) mg/dL POC Glucose (mg/dL) 137 H (70-110) mg/dL ALT 54 H (4-49) U/L Alkaline Phosphatase 141 H (38-126) U/L Total Protein 8.7 H (6.3-8.2) g/dL Assessment and Plan Plan: Assessment: 1. Acute kidney injury secondary to ATN secondary to hypotension and cardiorenal syndrome. Creatinine 1.23 on admission and peaked at 2.9 this admission - stable at 2.33 today. No hydronephrosis noted on kidney ultrasound. UA benign. 2. Acute on chronic systolic CHF with ejection fraction of less than 20% with moderate to severe mitral regurgitation, moderate tricuspid regurgitation and severe pulmonary hypertension. Status post AICD. 3. Volume overload. 4. Right foot wound being followed by vascular surgery and infectious disease. Status post debridement. On antibiotics. 5. Diabetes mellitus. 6. Hypokalemia from diuresis. Plan: Maintain bumex drip. Transition to oral diuretics in next 24-48 hours. Maintian midodrine. Hold for systolic blood pressure greater than 110. Avoid nephrotoxins. Continue to monitor renal function and urine output. Low-salt diet and 1500 mL fluid restriction. Replace potassium. Will benefit from SGLT2i once infection resolves.
[2023-05-27 11:46] LABS: Glucose,Whole Blood 201 mg/dL (70-110)
--- NOTE | 2023-05-27 11:49 | P.PN ---
Subjective HISTORY OF PRESENT ILLNESS: History of present illness: This is a 52-year-old male patient of Dr. Yared Abbasi with past medical history of nonischemic cardiomyopathy, hypertension, dyslipidemia, status post AICD, diabetes. We have been asked to evaluate the patient for run of V. tach. Patient has presented to the hospital due to right heel diabetic foot ulcer with osteomyelitis status post debridement. Patient had a run of nonsustained ventricular tachycardia of 13 beats. He does have AICD as noted above. Patient denies having any chest pain. Noted that patient has now been resumed on Entresto due to hypotension. Patient is currently on IV Lasix 60 mg every 12 hours. Sodium 136, potassium 4.3, BUN 67 creatinine 2.05. WBC 15.4, hemoglobin 12.4. Home cardiac medications: Lasix 80 mg twice daily, Entresto 24 mg26 mg twice daily, Aldactone 25 mg daily [address] [facility] Echocardiogram 06/2022 revealed EF less than 20% with global hypokinesia. Progress Note Date: 05/19/23 Progress note: Patient's creatinine has continued to decline on diuretic therapy. His EF is 10-15%. Creatinine 1.5-on admission, with diuretic therapy creatinine has increased to 2.91. I will start him on low-dose dobutamine running at 5 mcg/h. Transfer patient to [address] [place] [address] telemetry. BP 91/67, Urine output was not documented accurately 05/20 Patient is seen today on the cardiac stepdown unit. Patient was started on dobutamine drip yesterday he states is urinating about the same amount yesterday yesterday. He continues to have edema up into the thigh area and also having acute kidney injury. In general he feels he is okay. No significant pain in his foot. Blood pressure 91/57, heart rate in the 70s, afebrile, pulse ox 96% on room air. BUN 80 creatinine 2.74. Nephrology is switching patient to Bumex drip. 05/21 The patient does not appear to be urinating very much for not all of his output is being measured as he is sometimes using the bathroom. Patient is currently on dobutamine drip at 2.5 g, Bumex 2 mg IV twice daily and Aldactone 12.5 mg daily. Yesterday we added in Isordil, metolazone and hydralazine. Systolic blood pressures of been in the 90s, heart rates in the 60s to 80s. Repeat blood work reveals BUN 88 and creatinine 2.74. 05/22 Patient is seen today in follow-up. He is continued on dopamine drip currently at 5 g, Bumex was increased yesterday to 3 mg IV twice daily and patient has been continued on Isordil metolazone and Aldactone. Patient has had improvement in his weight down 4 kg. I&O's do not appear to be accurate. Systolic blood pr essure running in the 90s, pulse ox 90% on room air, heart rate anywhere from 66-95. Repeat blood work reveals improving of the renal function with a BUN of 85 creatinine 2.5 05/23 Patient seen and examined. Denies any SOB. Having some mild improvement in LE edema. Remains on dobutmaine drip at 2.5 and IV bumex and zaroxolyn. Cr mildly improved today. 05/24 Patient denies shortness of breath. He has no chest pain or pressure. He states he feels tired and has not been sleeping well here. He has leg pain. Lower extremity edema is slowly improving. He states he is urinating a lot. He is on a Bumex drip and dopamine drip. Hydralazine and Isordil were held this morning probably for MAP less than 65. 05/25 Patient's lower extremity edema is much improving. He denies having any fever or chills. He remains on dobutamine and Bumex drip but unfortunately pulled his PICC line out this morning and these need to be restarted. He has a negative fluid balance of 5550. Weight is down 16 kg since admission. Heart rate is in the 90s to low 100s. Blood pressure 102/66, pulse ox 94% on room air. WBC 16.9. BUN 72 and creatinine 2.29, potassium 4.1. CO2 35. Liver function tests are elevated. 05/26 Patient seen and examined. Patient remains on dobutamine at 5. Creatinine mil dly improved to 2.0. He does have significantly decreased in lower extremity edema and does not appear to have much more edema. Admits his shortness breath is mildly improved. 05/27/2023 Patient examined this morning at the bedside. Patient currently denies chest pain or pressure. He denies shortness of breath. He remains on a Bumex drip this morning. Creatinine 2.33. PHYSICAL EXAM: VITAL SIGNS: Reviewed. GENERAL: Well-developed in no acute distress. NECK: Supple. No JVD or thyromegaly LUNGS: Respirations even and unlabored. Lungs essentially clear to auscultation bilaterally. HEART: Regular rate and rhythm. S1 and S2 heard. EXTREMITIES: Normal range of motion. No clubbing or cyanosis. Peripheral pulses intact. 1+ bilateral lower extremity edema. Legs wrapped. ASSESSMENT: Cardiogenic shock cardiorenal syndrome Acute systolic heart failure exacerbation Nonsustained ventricular tachycardia, expected Diabetic foot ulcer Nonischemic cardiomyopathy EF 20%, status post AICD Hypertension Dyslipidemia Type II Diabetes Nicotine dependence Noncompliance PLAN: Continue current cardiac medications Continue IV diuresis per nephrology. Continue to monitor kidney function Daily weights and accurate intake and output Hold on initiating beta leah therapy at this time secondary to decreased blood pressure; on Midodrine Further recommendations pending patient's course Nurse practitioner note has been reviewed by physician. Signing provider agrees with the documented findings, assessment, and plan of care. Objective - Vital Signs Vital signs: Vital Signs Temp 98.3 F 05/27/23 04:36 Pulse 108 H 05/27/23 04:36 Resp 18 05/27/23 04:36 BP 97/66 05/27/23 04:36 Pulse Ox 96 05/27/23 04:36 FiO2 Intake & Output 05/26/23 05/27/23 05/27/23 18:59 06:59 18:59 Intake Total 982.217 698.333 Output Total 200 Balance 982.217 498.333 Weight 92.1 kg Intake: Intake, IV Titration 297.217 158.333 Amount Bumetanide 10 mg In 100 158.333 Dextrose 5% in Water 60 ml @ 1 MG/HR 10 mls/hr IV .Q10H [facility] Rx#:[id number] DOBUTamine DRIP 500 mg In 197.217 Dextrose/Water 1 250ml. bag @ 5 MCG/KG/MIN 17.325 mls/hr IV .[id number] [facility] Rx#:[id number] Oral [id number] 540 Output: Urine 200 Other: Voiding Method Toilet Toilet # Voids 2 - Labs CBC & Chem 7: 05/27/23 07:47 05/27/23 07:47 Labs: Abnormal Lab Results - Last 24 Hours (Table) 05/26/23 05/26/23 05/26/23 Range/Units 09:30 09:30 11:21 WBC 12.5 H (3.8-10.6) k/uL Neutrophils # 8.6 H (1.3-7.7) k/uL Eosinophils # 1.0 H (0-0.7) k/uL Sodium 133 L (137-145) mmol/L Chloride 84 L (98-107) mmol/L Carbon Dioxide 35 H (22-30) mmol/L BUN 75 H (9-20) mg/dL Creatinine 2.08 H (0.66-1.25) mg/dL Glucose 224 H (74-99) mg/dL POC Glucose (mg/dL) 203 H (70-110) mg/dL ALT 53 H (4-49) U/L Alkaline Phosphatase (38-126) U/L Total Protein (6.3-8.2) g/dL 05/26/23 05/27/23 05/27/23 Range/Units 20:10 05:58 07:47 WBC 15.3 H (3.8-10.6) k/uL Neutrophils # (1.3-7.7) k/uL Eosinophils # (0-0.7) k/uL Sodium (137-145) mmol/L Chloride (98-107) mmol/L Carbon Dioxide (22-30) mmol/L BUN (9-20) mg/dL Creatinine (0.66-1.25) mg/dL Glucose (74-99) mg/dL POC Glucose (mg/dL) 163 H 152 H (70-110) mg/dL ALT (4-49) U/L Alkaline Phosphatase (38-126) U/L Total Protein (6.3-8.2) g/dL 05/27/23 05/27/23 Range/Units 07:47 07:50 WBC (3.8-10.6) k/uL Neutrophils # (1.3-7.7) k/uL Eosinophils # (0-0.7) k/uL Sodium 133 L (137-145) mmol/L Chloride 81 L (98-107) mmol/L Carbon Dioxide 36 H (22-30) mmol/L BUN 97 H (9-20) mg/dL Creatinine 2.33 H (0.66-1.25) mg/dL Glucose 147 H (74-99) mg/dL POC Glucose (mg/dL) 137 H (70-110) mg/dL ALT 54 H (4-49) U/L Alkaline Phosphatase 141 H (38-126) U/L Total Protein 8.7 H (6.3-8.2) g/dL
[2023-05-27 13:38] VITALS: BMI 29.1
[2023-05-27] MEDS ORDERED: LIDOCAINE 1% INJ 10MG/ML (5 ML VIAL-PF) SQ ONE (13:59)
--- NOTE | 2023-05-27 14:30 | P.PN ---
Progress Note - Text 52-year-old gentleman patient is known to me from the wound clinic patient has a chronic wound on the foot plantar aspect the heel area his been treated twice patient on IV antibiotic and care of infectious disease for chronic wound and osteo-mellitus patient had a PICC line placed. And also a history of acute kidney injuries and also patient has CHF Plan is patient to his under care of infectious is an IV antibiotic and local wound care we'll follow with you continue with local wound care
--- NOTE | 2023-05-27 15:02 | IR ---
PICC LINE PLACEMENT: HISTORY: Infection requiring long-term antibiotic therapy PROCEDURE: Ultrasound and fluoroscopic guidance of PICC line placement. COMPLICATIONS: None ANESTHESIA: 1. 1% Lidocaine locally. FINDINGS/TECHNIQUE: The procedure was explained to the patient. The risks, complications, benefits and alternatives were discussed and any questions were answered. Informed consent was obtained. The patient was placed supine on the fluoroscopic table and prepped and draped in the usual sterile fash ion. Utilizing a 21 gauge needle and sonographic and fluoroscopic guidance, access in the right bas ilic vein was achieved and there is placement of a 0.018 guidewire. The vein is patent. A 4-F sheat h was placed over the guidewire. The guidewire and dilator were removed and a 4-F. PICC line was lindsey yovani through the sheath with the tip at the level of the SVC. The sheath was removed, the catheter wa s flushed and sutured into position. The patient was stable throughout the procedure and remained st able upon discharge from the Department of Radiology. The vein puncture was patent under ultrasound. A shook scale image was obtained to document patency of the vein punctured. All elements of the maximal barrier technique were utilized. FLUOROSCOPY TIME: DAP 0.0785Gy cm2 IMPRESSION: Successful PICC line placement under ultrasound and fluoroscopic guidance.
[2023-05-27 16:44] LABS: Glucose,Whole Blood 111 mg/dL (70-110)
[2023-05-27 20:09] LABS: Glucose,Whole Blood 255 mg/dL (70-110)
--- NOTE | 2023-05-27 20:20 | P.PN ---
Progress Note - Text Progress Note Date: 05/27/23 Chief Complaint: Right foot wound This is a 52-year-old patient, follows with Dr. Rodríguez. Chronic stable medical condition include CHF EF less than 20%, COPD, diabetes mellitus type 2, hypertension, hyperlipidemia, obstructive sleep apnea, anxiety, AICD, lower extremity venous insufficiency. Patient had lower extremity wounds and has been followed by ID and Dr. Lugo from vascular. Patient has not been able to make a wound care center regularly because of transportation issues. Now presents with worsening wound on the right foot. Has had previous debridement of same. It is draining. Somewhat foul-smelling.. Patient had some chills. May 15: Patient had right foot wound debridement with Dr. Lugo. Currently in dressing. Patient received IV fluids from the ER. Stop the same. IV Lasix. Patient is on IV Unasyn and IV vancomycin per ID. Significant edema. May 16: IV Lasix 60 mg every 12. Unclear if he is making much urine. IV vancomycin was discontinued yesterday because of renal function. Some decrease in edema. Oral intake good. IV Unasyn. Being followed by ID. May 17: Making good urine. I's and O not well documented. Remains on IV Lasix 60:12. Still a significant edema. Breathing is stable. IV Unasyn. Creatinine 2.05. I discussed with Dr. Lugo from vascular. Patient might need a amputation down the road. Patient has several social issues going on. May 18: Patient placed on IV Bumex. Making urine. Significant edema present. Breathing much better. Creatinine going up. Being followed by cardiology and nephrology. May 19: Today remains on IV Bumex 2 mg every 12. We started on dobutamine drip and both the cardiology selective floor. IV Zosyn to continue. Tolerating diet well. Breathing stable. Lower extremity edema. Creatinine worsening May 20: Patient is moved to the selective cardiology floor. Remains on IV dobutamine. An IV Bumex bolus. Urine output. Noted tolerating diet. Also on Zaroxolyn. Creatinine has plateaued off May 21: Tired. Oral intake fair. Remains on IV dobutamine drip and IV Bumex and bolus. Making urine. Some improvement in creatinine. Remains on IV Zosyn. May 22: Bumex was increased to 3 mg twice a day to yesterday. Remains on dobutamine drip. IV Zosyn. Oral intake fair. Slight improvement in creatinine. Slight improvement in edema. May 23: Patient seen and evaluated bedside, continue patient on Bumex and dobutamine drip, on IV antibiotic patient is alert and oriented 3 does have lower extremity edema, and remains on room air hypotensive systolic pressure ranging from 8200 with map of 65, serum chemistry pending continued to follow up on CBC and basic metabolic panel 05/24. Patient seen and examined. States he feels much better compared to yesterday. Tolerating diet. Denies any lightheadedness or dizziness. Swelling of lower extremities are improved 05/25. Patient seen and examined. Patient pulled out his IVs and PICC line overnight. IV access had to be achieved again. Patient not confused this mor jung. Answering questions appropriately. Lab work WBC 16.9, hemoglobin 13.7, sodium 136, potassium 4.1, BUN 72, creatinine 2.29. 05/26. Patient seen and examined, sitting at the edge of the bed upright, denies any shortness of breath at rest, get short of breath on exertion. Lab work done showed WBC 12.5, hemoglobin 13.4, sodium 133, BUN 75, creatinine 2.08. May 27: Patient on Bumex drip 1 mg hour. Edema coming down well. Eating well. Breathing stable. IV Zosyn. Sitting at the edge of the bed. Fredy wrap's Active Medications Acetaminophen (Acetaminophen Tab 325 Mg Tab) 650 mg PO Q6HR PRN PRN Reason: Mild Pain or Fever > 100.5 Albuterol Sulfate (Albuterol Nebulized 2.5 Mg/3 Ml) 2.5 mg INHALATION RT-QID PRN PRN Reason: Shortness Of Breath Last Admin: 05/21/23 12:58 Dose: 2.5 mg Alprazolam (Alprazolam 0.25 Mg Tab) 0.25 mg PO Q6HR PRN PRN Reason: Anxiety Last Admin: 05/26/23 04:04 Dose: 0.25 mg Aspirin (Aspirin 81 Mg) 81 mg PO DAILY [facility] Last Admin: 05/27/23 09:27 Dose: 81 mg Atorvastatin Calcium (Atorvastatin 40 Mg Tab) 40 mg PO DAILY [facility] Last Admin: 05/27/23 09:26 Dose: 40 mg Calcium Carbonate/Glycine (Calcium Carbonate 500 Mg Chewable) 1,000 mg PO Q4HR PRN PRN Reason: Dyspepsia Cyclobenzaprine HCl (Cyclobenzaprine 10 Mg Tab) 10 mg PO QID [facility] Last Admin: 05/27/23 18:11 Dose: 10 mg Dextrose/Water (Dextrose 50% Syringe 50 Ml) 25 ml IVP PER PROTOCOL PRN; Protocol PRN Reason: Hypoglycemia Dextrose/Water (Dextrose 50% Syringe 50 Ml) 50 ml IVP PER PROTOCOL PRN; Protocol PRN Reason: Hypoglycemia Duloxetine HCl (Duloxetine Hcl 60 Mg Capsule.Dr) 60 mg PO BID [facility] Last Admin: 05/27/23 09:27 Dose: 60 mg Hydralazine HCl (Hydralazine Hcl 10 Mg Tab) 10 mg PO TID [facility] Last Admin: 05/27/23 18:11 Dose: 10 mg Bumetanide 10 mg/ Dextrose/ (Water) 100 mls @ 10 mls/hr IV .Q10H [facility] Last Admin: 05/27/23 18:20 Dose: 1 mg/hr, 10 mls/hr Piperacillin Sod/Tazobactam (Sod 3.375 gm/ Sodium Chloride) 100 mls @ 25 mls/hr IVPB Q8H [facility]; Protocol Last Admin: 05/27/23 18:11 Dose: 25 mls/hr Insulin Aspart (Insulin Aspart (Novolog) 100 Unit/Ml Vial) 0 unit SQ ACHS [facility]; Protocol Last Admin: 05/27/23 18:26 Dose: Not Given Insulin Detemir (Insulin Detemir (Levemir) 100 Unit/Ml Syr) 20 unit SQ DAILY@0700 [facility] Last Admin: 05/27/23 06:20 Dose: 20 unit Isosorbide Dinitrate (Isosorbide Dinitrate 10 Mg Tab) 10 mg PO TID [facility] Last Admin: 05/27/23 18:21 Dose: 10 mg Lactulose (Lactulose 20 Gm/30 Ml Cup) 20 gm PO DAILY PRN PRN Reason: Constipation Last Admin: 05/19/23 10:14 Dose: 20 gm Melatonin (Melatonin 3 Mg Tablet) 3 mg PO HS PRN PRN Reason: Insomnia Metolazone (Metolazone 5 Mg Tab) 5 mg PO DAILY [facility] Last Admin: 05/27/23 09:27 Dose: 5 mg Midodrine (Midodrine 5 Mg Tab) 10 mg PO AC-TID [facility] Last Admin: 05/27/23 18:11 Dose: 10 mg Miscellaneous Information (Potassium Replacement Protocol 1 Each Misc) 1 each MISCELLANE DAILY PRN; Protocol PRN Reason: Per Protocol Morphine Sulfate (Morphine Sulfate 4 Mg/Ml Syringe) 4 mg IV Q4HR PRN PRN Reason: Severe Pain (Scale 7 to 10) Morphine Sulfate (Morphine Sulfate Ir 15 Mg Tablet) 30 mg PO QID PRN PRN Reason: Analgesia Last Admin: 05/27/23 09:27 Dose: 30 mg Naloxone HCl (Naloxone 0.4 Mg/Ml 1 Ml Vial) 0.2 mg IV Q2M PRN PRN Reason: Opioid Reversal Nicotine (Nicotine 14mg/24hr Patch) 1 patch TRANSDERM DAILY [facility] Last Admin: 05/27/23 09:26 Dose: 1 patch Ondansetron HCl (Ondansetron 4 Mg/2 Ml Vial) 4 mg IVP Q8HR PRN PRN Reason: Nausea And Vomiting Last Admin: 05/18/23 12:20 Dose: 4 mg Silver Sulfadiazine (Silver Sulfadiazine 1% Cream 25 Gm Tube) 1 applic TOPICAL BID [facility]; Protocol Last Admin: 05/27/23 09:07 Dose: Not Given Zolpidem Tartrate (Zolpidem 5 Mg Tab) 10 mg PO HS PRN PRN Reason: Insomnia Social history: Lives with his 20-year-old son. Disabled. 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 Smoking 2 packs a day for most of his life now down to half a pack a day. Stop drinking heavy alcohol about 20 years ago. Has done marijuana. Physical examination: VITAL SIGNS: 98, 90, 16, 92/55, 98% room GENERAL: Sitting at edge of the bed, eating lunch EYES: Pupils equal. Conjunctiva normal. HEENT: External appearance of nose and ears normal, oral cavity grossly normal. NECK: JVD unable to assess; masses not palpable. HEART: First and second heart sounds are normal; some decrease in edema LUNGS: Respiratory rate normal; diminished breath sounds ABDOMEN: Soft, nontender, liver spleen not palpable, no masses palpable. PSYCH: Alert and oriented x3; mood and affect normal MUSCULOSKELETAL:No Clubbing/cyanosis;muscles-grossly intact DERMATOLOGICAL: Right foot wound-dressing. More details - nursing notes. INVESTIGATIONS, reviewed in the clinical context: May 27: White count 15.3 hemoglobin 15 potassium 3.7 BUN 97 creatinine 2.33 May 22: Potassium 4.8 BUN 85 creatinine 2.5 for May 19: Potassium 4.8 BUN 78 creatinine 2.91 May 18: Potassium 4.7 bicarb 21. 72 creatinine 2.64 Wound culture: Proteus vulgaris. Streptococcus agalactiae group B May 15: White count 15.4 hemoglobin 12.4 potassium 3.7 BUN 59 creatinine 1.55 05/14/2023: White count 15 hemoglobin 13 platelets 254 sodium 134 potassium 4.2 BUN 58 creatinine 1.23 lactic acid 2.6 Assessment and plan: -Acute right lower leg cellulitis, infected right heel diabetic ulcer with prior history of debridement. Has not been able to follow the wound care center because of transport. Wound swab for Gram stain and culture. Proteus vulgaris, Streptococcus aga lactiae group B IV Zosyn Underwent debridement by Dr. Lugo Followed by ID and Dr. Lugo from vascular. -Sepsis from right leg wound. IV Zosyn -Acute on chronic congestive heart failure nonischemic cardiomyopathy systolic dysfunction EF less than 20%: Slow to respond IV Bumex drip Aldactone 12.5 mg . Entresto-hold because of renal function Zaroxolyn 5 mg. patient taken off dobutamine AICD. Being followed by cardiology and nephrology - COPD current smoker Ventolin. -Diabetes mellitus type 2 chronically on insulin, uncontrolled with hyperglycemia and hypoglycemia. Levemir 20 units subcu daily . Diabetic diet. Accu-Cheks and sliding scale -Hyperlipidemia -Chronic kidney disease stage III from diabetic nephropathy and nephrosclerosis Baseline creatinine of 1.2 on May 14. -Acute kidney injury likely ATN from cardiorenal syndrome and possible vancomycin: Slow to respond Follow renal function. Entresto held Nephrology following -Essential hypertension Entresto-hold for now -Obstructive sleep apnea sometimes uses CPAP machine -Diabetic peripheral neuropathy -Anxiety Ativan when necessary -DJD Tylenol when necessary -Chronic nicotine dependence patient cigarette smoker Nicotine patch 14 -AICD -Lower extremity chronic venous insufficiency IV Bumex drip to continue. IV Zosyn. Follow labs closely. Discussed with patient.
[2023-05-28] MEDS: PIPERACILLIN-TAZOBACTAM 3.375 GM in SODIUM CHLORIDE 0.9% 100 ML IVPB SCH ×3 (03:48→18:17)
[2023-05-28] MEDS: BUMETANIDE 10 MG in DEXTROSE 5% IN WATER 60 ML IV SCH ×2 (05:23)
[2023-05-28 06:10] LABS: Glucose,Whole Blood 134 mg/dL (70-110)
[2023-05-28] MEDS: INSULIN ASPART (NovoLOG) 100 UNIT/ML VIAL SQ SCH ×4 (06:28→20:44)
[2023-05-28] MEDS: MIDODRINE 5 MG TAB PO SCH ×3 (06:30→16:45)
[2023-05-28] MEDS: INSULIN DETEMIR (LEVEMIR) 100 UNIT/ML SYR SQ SCH (06:31)
[2023-05-28] MEDS: ASPIRIN 81 MG PO SCH (08:10)
[2023-05-28] MEDS: DULoxetine HCL 60 MG CAPSULE.DR PO SCH ×2 (08:10→20:43)
[2023-05-28] MEDS: CYCLOBENZAPRINE 10 MG TAB PO SCH ×4 (08:10→23:29)
[2023-05-28] MEDS: ATORVASTATIN 40 MG TAB PO SCH (08:11)
[2023-05-28] MEDS: metOLazone 5 MG TAB PO SCH ×2 (08:11→12:41)
[2023-05-28] MEDS: ISOSORBIDE DINITRATE 10 MG TAB PO SCH ×3 (08:11→23:29)
[2023-05-28] MEDS: hydrALAZINE HCL 10 MG TAB PO SCH ×2 (08:11→15:17)
[2023-05-28] MEDS: NICOTINE 14MG/24HR PATCH TRANSDERM SCH (08:11)
[2023-05-28 09:19] LABS: African American GFR (CKD) 31 (>60 ml/min/1.73 sqM); Anion Gap 19 mmol/L; Calcium 9.3 mg/dL (8.4-10.2); Carbon Dioxide 30 mmol/L (22-30); Chloride 85 mmol/L (98-107); Glucose 166 mg/dL (74-99); Non-African American GFR(CKD) 27 (>60 ml/min/1.73 sqM); Potassium 3.8 mmol/L (3.5-5.1); Sodium 134 mmol/L (137-145)
[2023-05-28 09:22] LABS: Blood Urea Nitrogen 116 mg/dL (9-20)
--- NOTE | 2023-05-28 11:08 | P.PN ---
Subjective Patient is seen in follow-up for acute kidney injury. Maintained on Bumex drip. Nonoliguric. Weight trending down. No chest pain or shortness of breath. Blood pressure stable. Vital signs are stable. General: No acute distress. HEENT: Head exam is unremarkable. LUNGS: No audible rhonchi or wheezes. HEART: Rate and Rhythm are regular. ABDOMEN: Nontender. EXTREMITITES: 1+ edema. Lower extremities wrapped. Objective - Vital Signs Vital signs: Vital Signs Temp 97.6 F 05/28/23 08:08 Pulse 112 H 05/28/23 08:16 Resp 17 05/28/23 08:08 BP 97/61 05/28/23 08:08 Pulse Ox 97 05/28/23 08:08 FiO2 Intake & Output 05/27/23 05/28/23 05/28/23 18:59 06:59 18:59 Intake Total 820 400 Balance 820 400 Weight 92.1 kg 90.9 kg Intake: Intake, IV Titration 100 100 Amount Bumetanide 10 mg In 100 100 Dextrose 5% in Water 60 ml @ 1 MG/HR 10 mls/hr IV .Q10H [facility] Rx#:[id number] Oral 720 300 Other: Voiding Method Toilet Toilet Urinal - Labs CBC & Chem 7: 05/27/23 07:47 05/28/23 08:18 Labs: Abnormal Lab Results - Last 24 Hours (Table) 05/27/23 05/27/23 05/27/23 Range/Units 11:45 16:42 20:06 Sodium (137-145) mmol/L Chloride (98-107) mmol/L BUN (9-20) mg/dL Creatinine (0.66-1.25) mg/dL Glucose (74-99) mg/dL POC Glucose (mg/dL) 201 H 111 H 255 H (70-110) mg/dL 05/28/23 05/28/23 Range/Units 06:06 08:18 Sodium 134 L (137-145) mmol/L Chloride 85 L (98-107) mmol/L BUN 116 H* (9-20) mg/dL Creatinine 2.60 H (0.66-1.25) mg/dL Glucose 166 H (74-99) mg/dL POC Glucose (mg/dL) 134 H (70-110) mg/dL Assessment and Plan Plan: Assessment: 1. Acute kidney injury secondary to ATN secondary to hypotension and cardiorenal syndrome. Creatinine 1.23 on admission and peaked at 2.9 this admission - 2.6 today. No hydronephrosis noted on kidney ultrasound. UA benign. 2. Acute on chronic systolic CHF with ejection fraction of less than 20% with moderate to severe mitral regurgitation, moderate tricuspid regurgitation and severe pulmonary hypertension. Status post AICD. 3. Volume overload. 4. Right foot wound being followed by vascular surgery and infectious disease. Status post debridement. On antibiotics. 5. Diabetes mellitus. 6. Hypokalemia from diuresis. Plan: Stop Bumex drip. Add oral Bumex 2 mg twice daily. Also on metolazone. Maintian midodrine. Hold for systolic blood pressure greater than 110. Avoid nephrotoxins. Continue to monitor renal function and urine output. Low-salt diet and 1500 mL fluid restriction. Add maintenance potassium supplementation. Will benefit from SGLT2i once infection resolves.
[2023-05-28] MEDS: POTASSIUM CHLORIDE ER 20 MEQ TAB.ER PO SCH (11:23)
--- NOTE | 2023-05-28 11:53 | P.PN ---
Subjective HISTORY OF PRESENT ILLNESS: History of present illness: This is a 52-year-old male patient of Dr. Yared Abbasi with past medical history of nonischemic cardiomyopathy, hypertension, dyslipidemia, status post AICD, diabetes. We have been asked to evaluate the patient for run of V. tach. Patient has presented to the hospital due to right heel diabetic foot ulcer with osteomyelitis status post debridement. Patient had a run of nonsustained ventricular tachycardia of 13 beats. He does have AICD as noted above. Patient denies having any chest pain. Noted that patient has now been resumed on Entresto due to hypotension. Patient is currently on IV Lasix 60 mg every 12 hours. Sodium 136, potassium 4.3, BUN 67 creatinine 2.05. WBC 15.4, hemoglobin 12.4. Home cardiac medications: Lasix 80 mg twice daily, Entresto 24 mg26 mg twice daily, Aldactone 25 mg daily [address] [facility] Echocardiogram 06/2022 revealed EF less than 20% with global hypokinesia. Progress Note Date: 05/19/23 Progress note: Patient's creatinine has continued to decline on diuretic therapy. His EF is 10-15%. Creatinine 1.5-on admission, with diuretic therapy creatinine has increased to 2.91. I will start him on low-dose dobutamine running at 5 mcg/h. Transfer patient to [address] [place] [address] telemetry. BP 91/67, Urine output was not documented accurately 05/20 Patient is seen today on the cardiac stepdown unit. Patient was started on dobutamine drip yesterday he states is urinating about the same amount yesterday yesterday. He continues to have edema up into the thigh area and also having acute kidney injury. In general he feels he is okay. No significant pain in his foot. Blood pressure 91/57, heart rate in the 70s, afebrile, pulse ox 96% on room air. BUN 80 creatinine 2.74. Nephrology is switching patient to Bumex drip. 05/21 The patient does not appear to be urinating very much for not all of his output is being measured as he is sometimes using the bathroom. Patient is currently on dobutamine drip at 2.5 g, Bumex 2 mg IV twice daily and Aldactone 12.5 mg daily. Yesterday we added in Isordil, metolazone and hydralazine. Systolic blood pressures of been in the 90s, heart rates in the 60s to 80s. Repeat blood work reveals BUN 88 and creatinine 2.74. 05/22 Patient is seen today in follow-up. He is continued on dopamine drip currently at 5 g, Bumex was increased yesterday to 3 mg IV twice daily and patient has been continued on Isordil metolazone and Aldactone. Patient has had improvement in his weight down 4 kg. I&O's do not appear to be accurate. Systolic blood pr essure running in the 90s, pulse ox 90% on room air, heart rate anywhere from 66-95. Repeat blood work reveals improving of the renal function with a BUN of 85 creatinine 2.5 05/23 Patient seen and examined. Denies any SOB. Having some mild improvement in LE edema. Remains on dobutmaine drip at 2.5 and IV bumex and zaroxolyn. Cr mildly improved today. 05/24 Patient denies shortness of breath. He has no chest pain or pressure. He states he feels tired and has not been sleeping well here. He has leg pain. Lower extremity edema is slowly improving. He states he is urinating a lot. He is on a Bumex drip and dopamine drip. Hydralazine and Isordil were held this morning probably for MAP less than 65. 05/25 Patient's lower extremity edema is much improving. He denies having any fever or chills. He remains on dobutamine and Bumex drip but unfortunately pulled his PICC line out this morning and these need to be restarted. He has a negative fluid balance of 5550. Weight is down 16 kg since admission. Heart rate is in the 90s to low 100s. Blood pressure 102/66, pulse ox 94% on room air. WBC 16.9. BUN 72 and creatinine 2.29, potassium 4.1. CO2 35. Liver function tests are elevated. 05/26 Patient seen and examined. Patient remains on dobutamine at 5. Creatinine mil dly improved to 2.0. He does have significantly decreased in lower extremity edema and does not appear to have much more edema. Admits his shortness breath is mildly improved. 05/27/2023 Patient examined this morning at the bedside. Patient currently denies chest pain or pressure. He denies shortness of breath. He remains on a Bumex drip this morning. Creatinine 2.33. 05/28/2023 Patient examined this morning at the bedside. Patient is sitting on the side of the bed. Patient currently denies chest pain or pressure. He denies shortness of breath. He has been transitioned to oral Bumex per nephrology. Patient's blood pressure remains soft with a systolic ranging [place] [address]. PHYSICAL EXAM: VITAL SIGNS: Reviewed. GENERAL: Well-developed in no acute distress. NECK: Supple. No JVD or thyromegaly LUNGS: Respirations even and unlabored. Lungs essentially clear to auscultation bilaterally. HEART: Regular rate and rhythm. S1 and S2 heard. EXTREMITIES: Normal range of motion. No clubbing or cyanosis. Peripheral pulses intact. 1+ bilateral lower extremity edema. Legs wrapped. ASSESSMENT: Cardiogenic shock cardiorenal syndrome Acute systolic heart failure exacerbation Nonsustained ventricular tachycardia, expected Diabetic foot ulcer Nonischemic cardiomyopathy EF 20%, status post AICD Hypertension Dyslipidemia Type II Diabetes Nicotine dependence Noncompliance PLAN: Continue current cardiac medications Patient has been transitioned to oral diuretics per nephrology. Continue to monitor kidney function Daily weights and accurate intake and output Hold off on initiating beta leah therapy at this time secondary to decreased blood pressure; on Midodrine Further recommendations pending patient's course Nurse practitioner note has been reviewed by physician. Signing provider agrees with the documented findings, assessment, and plan of care. Objective - Vital Signs Vital signs: Vital Signs Temp 97.6 F 05/28/23 08:08 Pulse 112 H 05/28/23 08:16 Resp 17 05/28/23 08:08 BP 97/61 05/28/23 08:08 Pulse Ox 97 05/28/23 08:08 FiO2 Intake & Output 05/27/23 05/28/23 05/28/23 18:59 06:59 18:59 Intake Total 820 400 Balance 820 400 Weight 92.1 kg 90.9 kg Intake: Intake, IV Titration 100 100 Amount Bumetanide 10 mg In 100 100 Dextrose 5% in Water 60 ml @ 1 MG/HR 10 mls/hr IV .Q10H [facility] Rx#:[id number] Oral 720 300 Other: Voiding Method Toilet Toilet Urinal - Labs CBC & Chem 7: 05/27/23 07:47 05/28/23 08:18 Labs: Abnormal Lab Results - Last 24 Hours (Table) 05/27/23 05/27/23 05/27/23 Range/Units 07:47 11:45 16:42 Sodium 133 L (137-145) mmol/L Chloride 81 L (98-107) mmol/L Carbon Dioxide 36 H (22-30) mmol/L BUN 97 H (9-20) mg/dL Creatinine 2.33 H (0.66-1.25) mg/dL Glucose 147 H (74-99) mg/dL POC Glucose (mg/dL) 201 H 111 H (70-110) mg/dL ALT 54 H (4-49) U/L Alkaline Phosphatase 141 H (38-126) U/L Total Protein 8.7 H (6.3-8.2) g/dL 05/27/23 05/28/23 Range/Units 20:06 06:06 Sodium (137-145) mmol/L Chloride (98-107) mmol/L Carbon Dioxide (22-30) mmol/L BUN (9-20) mg/dL Creatinine (0.66-1.25) mg/dL Glucose (74-99) mg/dL POC Glucose (mg/dL) 255 H 134 H (70-110) mg/dL ALT (4-49) U/L Alkaline Phosphatase (38-126) U/L Total Protein (6.3-8.2) g/dL
[2023-05-28 11:58] LABS: Glucose,Whole Blood 201 mg/dL (70-110)
[2023-05-28] MEDS: BUMETANIDE 1 MG TAB PO SCH (12:40)
--- NOTE | 2023-05-28 13:24 | P.PN ---
Subjective Progress Note Date: 05/27/23 Principal diagnosis: R diabetic foot/osteomyelitis Patient is a 52-year-old male with a past medical history significant for right heel diabetic foot infection with an episode of osteomyelitis. Patient completed his antibiotic therapy now presenting back to the hospital with worsening wound, the patient did have a surgical debridement of the right heel wound completed on 01/14/2023 On today's evaluation that is 05/27/2023, the patient continues to be afebrile , the patient is breathing comfortably on room air and denies any shortness of breath, the patient denies any chest pain or cough, patient denies abdominal pain and no nausea/vomiting or diarrhea , denies any worsening pain to the right foot wound Patient did have a white count is slightly up to 15.3, creatinine is 2.33 Objective - Vital Signs Vital signs: Vital Signs Temp 98.0 F 05/27/23 08:00 Pulse 101 H 05/27/23 08:00 Resp 18 05/27/23 08:00 BP 141/63 05/27/23 08:00 Pulse Ox 95 05/27/23 08:00 FiO2 Intake & Output 05/26/23 05/27/23 05/27/23 18:59 06:59 18:59 Intake Total 982.217 698.333 240 Output Total 200 Balance 982.217 498.333 240 Weight 92.1 kg Intake: Intake, IV Titration 297.217 158.333 Amount Bumetanide 10 mg In 100 158.333 Dextrose 5% in Water 60 ml @ 1 MG/HR 10 mls/hr IV .Q10H [facility] Rx#:[id number] DOBUTamine DRIP 500 mg In 197.217 Dextrose/Water 1 250ml. bag @ 5 MCG/KG/MIN 17.325 mls/hr IV .[id number] [facility] Rx#:[id number] Oral 685 540 240 Output: Urine 200 Other: Voiding Method Toilet Toilet # Voids 2 - Exam GENERAL DESCRIPTION: Middle-age male lying in bed in no distress RESPIRATORY SYSTEM: Unlabored breathing , decreased breath sounds at bases HEART: S1 S2 regular rate and rhythm ,no loud murmurs ABDOMEN: Soft , no tenderness EXTREMITIES: Right heel wound is currently dressed minimal drainage on the dress ing - Labs CBC & Chem 7: 05/27/23 07:47 05/28/23 08:18 Labs: Abnormal Lab Results - Last 24 Hours (Table) 05/26/23 05/27/23 05/27/23 Range/Units 20:10 05:58 07:47 WBC 15.3 H (3.8-10.6) k/uL Sodium (137-145) mmol/L Chloride (98-107) mmol/L Carbon Dioxide (22-30) mmol/L BUN (9-20) mg/dL Creatinine (0.66-1.25) mg/dL Glucose (74-99) mg/dL POC Glucose (mg/dL) 163 H 152 H (70-110) mg/dL ALT (4-49) U/L Alkaline Phosphatase (38-126) U/L Total Protein (6.3-8.2) g/dL 05/27/23 05/27/23 05/27/23 Range/Units 07:47 07:50 11:45 WBC (3.8-10.6) k/uL Sodium 133 L (137-145) mmol/L Chloride 81 L (98-107) mmol/L Carbon Dioxide 36 H (22-30) mmol/L BUN 97 H (9-20) mg/dL Creatinine 2.33 H (0.66-1.25) mg/dL Glucose 147 H (74-99) mg/dL POC Glucose (mg/dL) 137 H 201 H (70-110) mg/dL ALT 54 H (4-49) U/L Alkaline Phosphatase 141 H (38-126) U/L Total Protein 8.7 H (6.3-8.2) g/dL Assessment and Plan (1) Foot osteomyelitis, right Current Visit: Yes Status: Acute Code(s): M86.9 - OSTEOMYELITIS, UNSPECIFIED SNOMED Code(s): 4631973846613991 (2) Type 2 diabetes mellitus with right diabetic foot ulcer Current Visit: Yes Status: Acute Code(s): E11.621 - TYPE 2 DIABETES MELLITUS WITH FOOT ULCER; L97.519 - NON-PRS CHRONIC ULCER OTH PRT RIGHT FOOT W UNSP SEVERITY SNOMED Code(s): 438183930 (3) Wound infection Current Visit: Yes Status: Acute Code(s): T14.8XXA - OTHER INJURY OF UNSPECIFIED BODY REGION, INITIAL ENCOUNTER; L08.9 - LOCAL INFECTION OF THE SKIN AND SUBCUTANEOUS TISSUE, UNSP SNOMED Code(s): 57555783 Plan: 1patient with extensive right diabetic foot infection with evidence of necrosis and foul-smelling drainage send significant deep wound concerning for osteomyelitis, patient is status post debridement and deep culture which is growing Streptococcus and Proteus that is resistant to Unasyn. Also growing Providencia and acinetobacter Iwoffi along with anaerobes 2patient is afebrile the patient white count is slightly up that we'll monitor closely currently waiting for another PICC line placement and continue with the Zosyn Dictation was produced using [employer] dictation software. please excuse any grammatical, word or spelling errors. Time with Patient: Less than 30
--- NOTE | 2023-05-28 13:25 | P.PN ---
Subjective Progress Note Date: 05/28/23 Principal diagnosis: R diabetic foot/osteomyelitis Patient is a 52-year-old male with a past medical history significant for right heel diabetic foot infection with an episode of osteomyelitis. Patient completed his antibiotic therapy now presenting back to the hospital with worsening wound, the patient did have a surgical debridement of the right heel wound completed on 01/14/2023 On today's evaluation that is 05/28/2023, the patient remains to be afebrile , the patient is breathing comfortably on room air without need for supplemental oxygen, the patient denies any chest pain and no significant cough or sputum production, patient denies abdominal pain and no nausea/vomiting or diarrhea , the patient denies pain to the right foot wound Patient did have a creatinine of 2.60 CBC was done today Objective - Vital Signs Vital signs: Vital Signs Temp 97.6 F 05/28/23 08:08 Pulse 100 05/28/23 11:23 Resp 18 05/28/23 11:23 BP 83/53 05/28/23 11:23 Pulse Ox 97 05/28/23 11:23 FiO2 Intake & Output 05/27/23 05/28/23 05/28/23 18:59 06:59 18:59 Intake Total 820 400 67.667 Output Total 500 Balance 820 400 -432.333 Weight 92.1 kg 90.9 kg Intake: Intake, IV Titration 100 100 67.667 Amount Bumetanide 10 mg In 100 100 67.667 Dextrose 5% in Water 60 ml @ 1 MG/HR 10 mls/hr IV .Q10H [facility] Rx#:[id number] Oral 720 300 Output: Urine 500 Other: Voiding Method Toilet Toilet Urinal # Voids 2 - Exam GENERAL DESCRIPTION: Middle-age male lying in bed in no distress RESPIRATORY SYSTEM: Unlabored breathing , decreased breath sounds at bases HEART: S1 S2 regular rate and rhythm ,no loud murmurs ABDOMEN: Soft , no tenderness EXTREMITIES: Right heel wound is currently dressed minimal drainage on the dressing - Labs CBC & Chem 7: 05/27/23 07:47 05/28/23 08:18 Labs: Abnormal Lab Results - Last 24 Hours (Table) 05/27/23 05/27/23 05/28/23 Range/Units 16:42 20:06 06:06 Sodium (137-145) mmol/L Chloride (98-107) mmol/L BUN (9-20) mg/dL Creatinine (0.66-1.25) mg/dL Glucose (74-99) mg/dL POC Glucose (mg/dL) 111 H 255 H 134 H (70-110) mg/dL 05/28/23 05/28/23 Range/Units 08:18 11:57 Sodium 134 L (137-145) mmol/L Chloride 85 L (98-107) mmol/L BUN 116 H* (9-20) mg/dL Creatinine 2.60 H (0.66-1.25) mg/dL Glucose 166 H (74-99) mg/dL POC Glucose (mg/dL) 201 H (70-110) mg/dL Assessment and Plan (1) Foot osteomyelitis, right Current Visit: Yes Status: Acute Code(s): M86.9 - OSTEOMYELITIS, UNSPECIFIED SNOMED Code(s): 7617496470763787 (2) Type 2 diabetes mellitus with right diabetic foot ulcer Current Visit: Yes Status: Acute Code(s): E11.621 - TYPE 2 DIABETES MELLITUS WITH FOOT ULCER; L97.519 - NON-PRS CHRONIC ULCER OTH PRT RIGHT FOOT W UNSP SE VERITY SNOMED Code(s): 495548346 (3) Wound infection Current Visit: Yes Status: Acute Code(s): T14.8XXA - OTHER INJURY OF UNSPECIFIED BODY REGION, INITIAL ENCOUNTER; L08.9 - LOCAL INFECTION OF THE SKIN AND SUBCUTANEOUS TISSUE, UNSP SNOMED Code(s): 36998023 Plan: 1patient with extensive right diabetic foot infection with evidence of necrosis and foul-smelling drainage send significant deep wound concerning for osteo myelitis, patient is status post debridement and deep culture which is growing Streptococcus and Proteus that is resistant to Unasyn. Also growing Providencia and acinetobacter Iwoffi along with anaerobes 2patient is afebrile the patient did received another PICC line patient has been advised to continue with the Zosyn to finish a 6 week course of therapy and close outpatient follow-up Dictation was produced using [employer] software. please excuse any grammatical, word or spelling errors.
[2023-05-28 16:42] LABS: Glucose,Whole Blood 150 mg/dL (70-110)
[2023-05-28] MEDS: MORPHINE SULFATE IR 15 MG TABLET PO PRN (17:09)
--- NOTE | 2023-05-28 18:37 | P.PN ---
Progress Note - Text Progress Note Date: 05/28/23 Chief Complaint: Right foot wound This is a 52-year-old patient, follows with Dr. Rodríguez. Chronic stable medical condition include CHF EF less than 20%, COPD, diabetes mellitus type 2, hypertension, hyperlipidemia, obstructive sleep apnea, anxiety, AICD, lower extremity venous insufficiency. Patient had lower extremity wounds and has been followed by ID and Dr. Lugo from vascular. Patient has not been able to make a wound care center regularly because of transportation issues. Now presents with worsening wound on the right foot. Has had previous debridement of same. It is draining. Somewhat foul-smelling.. Patient had some chills. May 15: Patient had right foot wound debridement with Dr. Lugo. Currently in dressing. Patient received IV fluids from the ER. Stop the same. IV Lasix. Patient is on IV Unasyn and IV vancomycin per ID. Significant edema. May 16: IV Lasix 60 mg every 12. Unclear if he is making much urine. IV vancomycin was discontinued yesterday because of renal function. Some decrease in edema. Oral intake good. IV Unasyn. Being followed by ID. May 17: Making good urine. I's and O not well documented. Remains on IV Lasix 60:12. Still a significant edema. Breathing is stable. IV Unasyn. Creatinine 2.05. I discussed with Dr. Lugo from vascular. Patient might need a amputation down the road. Patient has several social issues going on. May 18: Patient placed on IV Bumex. Making urine. Significant edema present. Breathing much better. Creatinine going up. Being followed by cardiology and nephrology. May 19: Today remains on IV Bumex 2 mg every 12. We started on dobutamine drip and both the cardiology selective floor. IV Zosyn to continue. Tolerating diet well. Breathing stable. Lower extremity edema. Creatinine worsening May 20: Patient is moved to the selective cardiology floor. Remains on IV dobutamine. An IV Bumex bolus. Urine output. Noted tolerating diet. Also on Zaroxolyn. Creatinine has plateaued off May 21: Tired. Oral intake fair. Remains on IV dobutamine drip and IV Bumex and bolus. Making urine. Some improvement in creatinine. Remains on IV Zosyn. May 22: Bumex was increased to 3 mg twice a day to yesterday. Remains on dobutamine drip. IV Zosyn. Oral intake fair. Slight improvement in creatinine. Slight improvement in edema. May 23: Patient seen and evaluated bedside, continue patient on Bumex and dobutamine drip, on IV antibiotic patient is alert and oriented 3 does have lower extremity edema, and remains on room air hypotensive systolic pressure ranging from 8200 with map of 65, serum chemistry pending continued to follow up on CBC and basic metabolic panel 05/24. Patient seen and examined. States he feels much better compared to yesterday. Tolerating diet. Denies any lightheadedness or dizziness. Swelling of lower extremities are improved 05/25. Patient seen and examined. Patient pulled out his IVs and PICC line overnight. IV access had to be achieved again. Patient not confused this mor jung. Answering questions appropriately. Lab work WBC 16.9, hemoglobin 13.7, sodium 136, potassium 4.1, BUN 72, creatinine 2.29. 05/26. Patient seen and examined, sitting at the edge of the bed upright, denies any shortness of breath at rest, get short of breath on exertion. Lab work done showed WBC 12.5, hemoglobin 13.4, sodium 133, BUN 75, creatinine 2.08. May 27: Patient on Bumex drip 1 mg hour. Edema coming down well. Eating well. Breathing stable. IV Zosyn. Sitting at the edge of the bed. Fredy wrap's May 28: Patient being changed over to Bumex 2 mg by mouth twice a day. Increase in BUN and creatinine. We'll hold evening dose of Bumex and the morning dose of Zaroxolyn. We'll give a 500 mL of half saline overnight. Active Medications Acetaminophen (Acetaminophen Tab 325 Mg Tab) 650 mg PO Q6HR PRN PRN Reason: Mild Pain or Fever > 100.5 Albuterol Sulfate (Albuterol Nebulized 2.5 Mg/3 Ml) 2.5 mg INHALATION RT-QID PRN PRN Reason: Shortness Of Breath Last Admin: 05/21/23 12:58 Dose: 2.5 mg Alprazolam (Alprazolam 0.25 Mg Tab) 0.25 mg PO Q6HR PRN PRN Reason: Anxiety Last Admin: 05/26/23 04:04 Dose: 0.25 mg Aspirin (Aspirin 81 Mg) 81 mg PO DAILY [facility] Last Admin: 05/28/23 08:10 Dose: 81 mg Atorvastatin Calcium (Atorvastatin 40 Mg Tab) 40 mg PO DAILY [facility] Last Admin: 05/28/23 08:11 Dose: 40 mg Bumetanide (Bumetanide 1 Mg Tab) 2 mg PO BID [facility] Last Admin: 05/28/23 12:40 Dose: Not Given Calcium Carbonate/Glycine (Calcium Carbonate 500 Mg Chewable) 1,000 mg PO Q4HR PRN PRN Reason: Dyspepsia Cyclobenzaprine HCl (Cyclobenzaprine 10 Mg Tab) 10 mg PO QID [facility] Last Admin: 05/28/23 17:09 Dose: 10 mg Dextrose/Water (Dextrose 50% Syringe 50 Ml) 25 ml IVP PER PROTOCOL PRN; Protocol PRN Reason: Hypoglycemia Dextrose/Water (Dextrose 50% Syringe 50 Ml) 50 ml IVP PER PROTOCOL PRN; Protocol PRN Reason: Hypoglycemia Duloxetine HCl (Duloxetine Hcl 60 Mg Capsule.Dr) 60 mg PO BID [facility] Last Admin: 05/28/23 08:10 Dose: 60 mg Hydralazine HCl (Hydralazine Hcl 10 Mg Tab) 10 mg PO TID [facility] Last Admin: 05/28/23 15:17 Dose: Not Given Piperacillin Sod/Tazobactam (Sod 3.375 gm/ Sodium Chloride) 100 mls @ 25 mls/hr IVPB Q8H [facility]; Protocol Last Admin: 05/28/23 18:17 Dose: 25 mls/hr Sodium Chloride (Saline 0.45%) 1,000 mls @ 50 mls/hr IV .Q20H [facility] Stop: 05/29/23 04:44 Insulin Aspart (Insulin Aspart (Novolog) 100 Unit/Ml Vial) 0 unit SQ ACHS [facility]; Protocol Last Admin: 05/28/23 16:43 Dose: Not Given Insulin Detemir (Insulin Detemir (Levemir) 100 Unit/Ml Syr) 20 unit SQ DAILY@0700 [facility] Last Admin: 05/28/23 06:31 Dose: 20 unit Isosorbide Dinitrate (Isosorbide Dinitrate 10 Mg Tab) 10 mg PO TID [facility] Last Admin: 05/28/23 15:17 Dose: Not Given Lactulose (Lactulose 20 Gm/30 Ml Cup) 20 gm PO DAILY PRN PRN Reason: Constipation Last Admin: 05/19/23 10:14 Dose: 20 gm Melatonin (Melatonin 3 Mg Tablet) 3 mg PO HS PRN PRN Reason: Insomnia Metolazone (Metolazone 5 Mg Tab) 5 mg PO DAILY [facility] Last Admin: 05/28/23 12:41 Dose: Not Given Midodrine (Midodrine 5 Mg Tab) 10 mg PO AC-TID [facility] Last Admin: 05/28/23 16:45 Dose: Not Given Miscellaneous Information (Potassium Replacement Protocol 1 Each Misc) 1 each MISCELLANE DAILY PRN; Protocol PRN Reason: Per Protocol Morphine Sulfate (Morphine Sulfate Ir 15 Mg Tablet) 30 mg PO QID PRN PRN Reason: Analgesia Last Admin: 05/28/23 17:09 Dose: 30 mg Naloxone HCl (Naloxone 0.4 Mg/Ml 1 Ml Vial) 0.2 mg IV Q2M PRN PRN Reason: Opioid Reversal Nicotine (Nicotine 14mg/24hr Patch) 1 patch TRANSDERM DAILY [facility] Last Admin: 05/28/23 08:11 Dose: 1 patch Ondansetron HCl (Ondansetron 4 Mg/2 Ml Vial) 4 mg IVP Q8HR PRN PRN Reason: Nausea And Vomiting Last Admin: 05/18/23 12:20 Dose: 4 mg Potassium Chloride (Potassium Chloride Er 20 Meq Tab.Er) 20 meq PO DAILY [facility] Last Admin: 05/28/23 11:23 Dose: 20 meq Silver Sulfadiazine (Silver Sulfadiazine 1% Cream 25 Gm Tube) 1 applic TOPICAL BID [facility]; Protocol Last Admin: 05/28/23 08:14 Dose: 1 applic Zolpidem Tartrate (Zolpidem 5 Mg Tab) 10 mg PO HS PRN PRN Reason: Insomnia Social history: Lives with his 20-year-old son. Disabled. 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 Smoking 2 packs a day for most of his life now down to half a pack a day. Stop drinking heavy alcohol about 20 years ago. Has done marijuana. Physical examination: VITAL SIGNS: 97.6, 100, 18, 83/53, 97% room air GENERAL: Sitting at edge of the bed, comfortable EYES: Pupils equal. Conjunctiva normal. HEENT: External appearance of nose and ears normal, oral cavity grossly normal. NECK: JVD unable to assess; masses not palpable. HEART: First and second heart sounds are normal; decrease in edema LUNGS: Respiratory rate normal; diminished breath sounds ABDOMEN: Soft, nontender, liver spleen not palpable, no masses palpable. PSYCH: Alert and oriented x3; mood and affect normal MUSCULOSKELETAL:No Clubbing/cyanosis;muscles-grossly intact DERMATOLOGICAL: Right foot wound-dressing. More details - nursing notes. INVESTIGATIONS, reviewed in the clinical context: May 28: Potassium 3.9 and 116 creatinine 2.60 May 27: White count 15.3 hemoglobin 15 potassium 3.7 BUN 97 creatinine 2.33 May 22: Potassium 4.8 BUN 85 creatinine 2.5 for May 19: Potassium 4.8 BUN 78 creatinine 2.91 May 18: Potassium 4.7 bicarb 21. 72 creatinine 2.64 Wound culture: Proteus vulgaris. Streptococcus agalactiae group B May 15: White count 15.4 hemoglobin 12.4 potassium 3.7 BUN 59 creatinine 1.55 05/14/2023: White count 15 hemoglobin 13 platelets 254 sodium 134 potassium 4.2 BUN 58 creatinine 1.23 lactic acid 2.6 Assessment and plan: -Acute right lower leg cellulitis, infected right heel diabetic ulcer with prior history of debridement. Has not been able to follow the wound care center because of transport. Wound swab for Gram stain and culture. Proteus vulgaris, Streptococcus agalactiae group B IV Inessafrancine Underwent debridement by Dr. Lugo Followed by ID and Dr. Lugo from vascular. -Sepsis from right leg wound.: Dr. AMITA Neely -Acute on chronic congestive heart failure nonischemic cardiomyopathy systolic dysfunction EF less than 20%: Better IV Bumex drip-discontinued Aldactone 12.5 mg . Entresto-hold because of renal function Zaroxolyn 5 mg. patient taken off dobutamine AICD. Being followed by cardiology and nephrology Bumex 2 mg twice a day started today. - COPD current smoker Ventolin. -Diabetes mellitus type 2 chronically on insulin, uncontrolled with hyperglycemia and hypoglycemia. Levemir 20 units subcu daily . Diabetic diet. Accu-Cheks and sliding scale -Hyperlipidemia -Chronic kidney disease stage III from diabetic nephropathy and nephrosclerosis Baseline creatinine of 1.2 on May 14. -Acute kidney injury likely ATN from cardiorenal syndrome and possible vancomycin: Slow to respond Follow renal function. Entresto held Nephrology following -Essential hypertension Entresto-hold for now -Obstructive sleep apnea sometimes uses CPAP machine -Diabetic peripheral neuropathy -Anxiety Ativan when necessary -DJD Tylenol when necessary -Chronic nicotine dependence patient cigarette smoker Nicotine patch 14 -AICD -Lower extremity chronic venous insufficiency Patient changed over to oral Bumex today. Hold today's p.m. dose of Bumex. Morning dose of Zaroxolyn. Give 500 mL of half saline overnight. Blood pressure running low.
[2023-05-28] MEDS ORDERED: SODIUM CHLORIDE 0.45% 1,000 ML IV SCH (18:45)
[2023-05-28 20:22] LABS: Glucose,Whole Blood 230 mg/dL (70-110)
[2023-05-29] MEDS: hydrALAZINE HCL 10 MG TAB PO SCH ×3 (00:16→16:47)
[2023-05-29] MEDS: PIPERACILLIN-TAZOBACTAM 3.375 GM in SODIUM CHLORIDE 0.9% 100 ML IVPB SCH ×3 (03:34→17:03)
[2023-05-29 06:26] LABS: Glucose,Whole Blood 183 mg/dL (70-110)
[2023-05-29] MEDS: INSULIN ASPART (NovoLOG) 100 UNIT/ML VIAL SQ SCH ×3 (06:38→16:28)
[2023-05-29] MEDS: INSULIN DETEMIR (LEVEMIR) 100 UNIT/ML SYR SQ SCH (06:38)
[2023-05-29] MEDS: MIDODRINE 5 MG TAB PO SCH ×3 (07:51→17:55)
[2023-05-29 07:55] VITALS: TEMP 97.7
[2023-05-29] MEDS: POTASSIUM CHLORIDE ER 20 MEQ TAB.ER PO SCH (08:34)
[2023-05-29] MEDS: ATORVASTATIN 40 MG TAB PO SCH (08:34)
[2023-05-29] MEDS: ISOSORBIDE DINITRATE 10 MG TAB PO SCH ×2 (08:34→16:47)
[2023-05-29] MEDS: DULoxetine HCL 60 MG CAPSULE.DR PO SCH (08:34)
[2023-05-29] MEDS: NICOTINE 14MG/24HR PATCH TRANSDERM SCH (08:34)
[2023-05-29] MEDS: ASPIRIN 81 MG PO SCH (08:34)
[2023-05-29] MEDS: CYCLOBENZAPRINE 10 MG TAB PO SCH ×2 (08:34→12:16)
[2023-05-29] MEDS: BUMETANIDE 1 MG TAB PO SCH (08:34)
[2023-05-29 09:06] LABS: Magnesium 2.2 mg/dL (1.6-2.3); Potassium 3.5 mmol/L (3.5-5.1)
[2023-05-29] MEDS ORDERED: POTASSIUM CHLORIDE ER 20 MEQ TAB.ER PO STA (11:14)
--- NOTE | 2023-05-29 11:14 | P.PN ---
Subjective Patient is seen in follow-up for acute kidney injury. Maintained on oral Bumex. Nonoliguric. No chest pain or shortness of breath. Blood pressure stable. Vital signs are stable. General: No acute distress. HEENT: Head exam is unremarkable. LUNGS: No audible rhonchi or wheezes. HEART: Rate and Rhythm are regular. ABDOMEN: Nontender. EXTREMITITES: 1+ edema. Lower extremities wrapped. Objective - Vital Signs Vital signs: Vital Signs Temp 97.7 F 05/29/23 07:51 Pulse 96 05/29/23 07:51 Resp 18 05/29/23 07:51 BP 99/54 05/29/23 07:51 Pulse Ox 97 05/29/23 07:51 FiO2 Intake & Output 05/28/23 05/29/23 05/29/23 18:59 06:59 18:59 Intake Total 1327.667 220 Output Total 702 Balance 625.667 220 Weight 92.1 kg Intake: Intake, IV Titration 67.667 Amount Bumetanide 10 mg In 67.667 Dextrose 5% in Water 60 ml @ 1 MG/HR 10 mls/hr IV .Q10H [facility] Rx#:[id number] Oral 1260 220 Output: Urine 702 Other: Voiding Method Toilet Toilet Urinal Urinal # Voids 2 # Bowel Movements 1 - Labs CBC & Chem 7: 05/27/23 07:47 05/29/23 08:19 Labs: Abnormal Lab Results - Last 24 Hours (Table) 05/28/23 05/28/23 05/28/23 Range/Units 11:57 16:41 20:21 POC Glucose (mg/dL) 201 H 150 H 230 H (70-110) mg/dL 05/29/23 Range/Units 06:13 POC Glucose (mg/dL) 183 H (70-110) mg/dL Assessment and Plan Plan: Assessment: 1. Acute kidney injury secondary to ATN secondary to hypotension and cardiorenal syndrome. Creatinine 1.23 on admission and peaked at 2.9 this admission - 2.6 yesterday. No hydronephrosis noted on kidney ultrasound. UA benign. 2. Acute on chronic systolic CHF with ejection fraction of less than 20% with moderate to severe mitral regurgitation, moderate tricuspid regurgitation and severe pulmonary hypertension. Status post AICD. 3. Volume overload. Improved with diuresis. 4. Right foot wound being followed by vascular surgery and infectious disease. Status post debridement. On antibiotics. 5. Diabetes mellitus. 6. Hypokalemia from diuresis. Magnesium normal. Plan: Maintain oral Bumex 2 mg twice daily. Also on metolazone. Maintian midodrine. Hold for systolic blood pressure greater than 110. Avoid nephrotoxins. Continue to monitor renal function and urine output. Low-salt diet and 1500 mL fluid restriction. Maintain potassium supplementation. Additional 40 mEq today. Will benefit from SGLT2i once infection resolves. Repeat BMP and magnesium level 2-3 days postdischarge. Follow up outpatient in 1 week.
[2023-05-29 11:27] LABS: Glucose,Whole Blood 221 mg/dL (70-110)
[2023-05-29 11:36] VITALS: RESP 16
--- NOTE | 2023-05-29 12:39 | P.PN ---
Subjective HISTORY OF PRESENT ILLNESS: History of present illness: This is a 52-year-old male patient of Dr. Yared Abbasi with past medical history of nonischemic cardiomyopathy, hypertension, dyslipidemia, status post AICD, diabetes. We have been asked to evaluate the patient for run of V. tach. Patient has presented to the hospital due to right heel diabetic foot ulcer with osteomyelitis status post debridement. Patient had a run of nonsustained ventricular tachycardia of 13 beats. He does have AICD as noted above. Patient denies having any chest pain. Noted that patient has now been resumed on Entresto due to hypotension. Patient is currently on IV Lasix 60 mg every 12 hours. Sodium 136, potassium 4.3, BUN 67 creatinine 2.05. WBC 15.4, hemoglobin 12.4. Home cardiac medications: Lasix 80 mg twice daily, Entresto 24 mg26 mg twice daily, Aldactone 25 mg daily [address] single-[address] [facility] Echocardiogram 06/2022 revealed EF less than 20% with global hypokinesia. Progress Note Date: 05/19/23 Progress note: Patient's creatinine has continued to decline on diuretic therapy. His EF is 10-15%. Creatinine 1.5-on admission, with diuretic therapy creatinine has increased to 2.91. I will start him on low-dose dobutamine running at 5 mcg/h. Transfer patient to [address] [place] [address] telemetry. BP 91/67, Urine output was not documented accurately 05/20 Patient is seen today on the cardiac stepdown unit. Patient was started on dobutamine drip yesterday he states is urinating about the same amount yesterday yesterday. He continues to have edema up into the thigh area and also having acute kidney injury. In general he feels he is okay. No significant pain in his foot. Blood pressure 91/57, heart rate in the 70s, afebrile, pulse ox 96% on room air. BUN 80 creatinine 2.74. Nephrology is switching patient to Bumex drip. 05/21 The patient does not appear to be urinating very much for not all of his output is being measured as he is sometimes using the bathroom. Patient is currently on dobutamine drip at 2.5 g, Bumex 2 mg IV twice daily and Aldactone 12.5 mg daily. Yesterday we added in Isordil, metolazone and hydralazine. Systolic blood pressures of been in the 90s, heart rates in the 60s to 80s. Repeat blood work reveals BUN 88 and creatinine 2.74. 05/22 Patient is seen today in follow-up. He is continued on dopamine drip currently at 5 g, Bumex was increased yesterday to 3 mg IV twice daily and patient has been continued on Isordil metolazone and Aldactone. Patient has had improvement in his weight down 4 kg. I&O's do not appear to be accurate. Systolic blood pr essure running in the 90s, pulse ox 90% on room air, heart rate anywhere from 66-95. Repeat blood work reveals improving of the renal function with a BUN of 85 creatinine 2.5 05/23 Patient seen and examined. Denies any SOB. Having some mild improvement in LE edema. Remains on dobutmaine drip at 2.5 and IV bumex and zaroxolyn. Cr mildly improved today. 05/24 Patient denies shortness of breath. He has no chest pain or pressure. He states he feels tired and has not been sleeping well here. He has leg pain. Lower extremity edema is slowly improving. He states he is urinating a lot. He is on a Bumex drip and dopamine drip. Hydralazine and Isordil were held this morning probably for MAP less than 65. 05/25 Patient's lower extremity edema is much improving. He denies having any fever or chills. He remains on dobutamine and Bumex drip but unfortunately pulled his PICC line out this morning and these need to be restarted. He has a negative fluid balance of 5550. Weight is down 16 kg since admission. Heart rate is in the 90s to low 100s. Blood pressure 102/66, pulse ox 94% on room air. WBC 16.9. BUN 72 and creatinine 2.29, potassium 4.1. CO2 35. Liver function tests are elevated. 05/26 Patient seen and examined. Patient remains on dobutamine at 5. Creatinine mil dly improved to 2.0. He does have significantly decreased in lower extremity edema and does not appear to have much more edema. Admits his shortness breath is mildly improved. 05/27/2023 Patient examined this morning at the bedside. Patient currently denies chest pain or pressure. He denies shortness of breath. He remains on a Bumex drip this morning. Creatinine 2.33. 05/28/2023 Patient examined this morning at the bedside. Patient is sitting on the side of the bed. Patient currently denies chest pain or pressure. He denies shortness of breath. He has been transitioned to oral Bumex per nephrology. Patient's blood pressure remains soft with a systolic ranging [place] [address]. 05/29/2023 Patient examined this morning at the bedside. Patient denies chest pain or pressure. He denies shortness of breath. He is maintained on oral diuretics. Patient's blood pressures remain on the lower side. Blood pressure this morning 99/54. PHYSICAL EXAM: VITAL SIGNS: Reviewed. GENERAL: Well-developed in no acute distress. NECK: Supple. No JVD or thyromegaly LUNGS: Respirations even and unlabored. Lungs essentially clear to auscultation bilaterally. HEART: Regular rate and rhythm. S1 and S2 heard. EXTREMITIES: Normal range of motion. No clubbing or cyanosis. Peripheral pulses intact. 1+ bilateral lower extremity edema. Legs wrapped. ASSESSMENT: Cardiogenic shock cardiorenal syndrome Acute systolic heart failure exacerbation Nonsustained ventricular tachycardia, expected Diabetic foot ulcer Nonischemic cardiomyopathy EF 20%, status post AICD Hypertension Dyslipidemia Type II Diabetes Nicotine dependence Noncompliance PLAN: Continue current cardiac medications Hold off on initiating beta leah and BALBINA/ARB therapy at this time secondary to decreased blood pressure; on Midodrine Patient is currently stable from a cardiac perspective We will sign off. Please reconsult if needed. Nurse practitioner note has been reviewed by physician. Signing provider agrees with the documented findings, assessment, and plan of care. Objective - Vital Signs Vital signs: Vital Signs Temp 97.7 F 05/29/23 07:51 Pulse 99 05/29/23 11:19 Resp 16 05/29/23 11:19 BP 101/62 05/29/23 11:19 Pulse Ox 94 L 05/29/23 11:19 FiO2 Intake & Output 05/28/23 05/29/23 05/29/23 18:59 06:59 18:59 Intake Total 1327.667 220 Output Total 702 Balance 625.667 220 Weight 92.1 kg Intake: Intake, IV Titration 67.667 Amount Bumetanide 10 mg In 67.667 Dextrose 5% in Water 60 ml @ 1 MG/HR 10 mls/hr IV .Q10H [facility] Rx#:[id number] Oral 1260 220 Output: Urine 702 Other: Voiding Method Toilet Toilet Urinal Urinal # Voids 2 # Bowel Movements 1 - Labs CBC & Chem 7: 05/27/23 07:47 05/29/23 08:19 Labs: Abnormal Lab Results - Last 24 Hours (Table) 05/28/23 05/28/23 05/29/23 Range/Units 16:41 20:21 06:13 POC Glucose (mg/dL) 150 H 230 H 183 H (70-110) mg/dL 05/29/23 Range/Units 11:26 POC Glucose (mg/dL) 221 H (70-110) mg/dL
[2023-05-29 16:30] LABS: Glucose,Whole Blood 147 mg/dL (70-110)
[2023-05-29 17:08] VITALS: BP 115/63; PULSE 98
--- NOTE | 2023-05-29 18:37 | P.DS ---
Providers Date of admission: 05/14/23 22:36 Expected date of discharge: 05/29/23 Attending physician: Buck Johnson Consults: 05/14/23 21:24 Consult Physician Routine Consulting Provider: Yesenia Santoyo Consult Reason/Comments: known Do you want consulting provider notified?: Yes 05/14/23 22:25 Consult Physician Routine Consulting Provider: Martin Kaur Consult Reason/Comments: Right foot wound Do you want consulting provider notified?: Yes 05/16/23 09:43 Consult Physician Routine Consulting Provider: Manuel Ozuna Consult Reason/Comments: ANGY Do you want consulting provider notified?: Yes 05/17/23 00:23 Consult Physician Routine Consulting Provider: Smooth Griffin Consult Reason/Comments: Run of 13 Do you want consulting provider notified?: Yes, Notify in am 05/18/23 12:27 Consult Physician Routine Consulting Provider: Shiv Caldwell Consult Reason/Comments: worsening creatinine, fluid overload Do you want consulting provider notified?: Yes Primary care physician: [facility] Course: Chief Complaint: Right foot wound This is a 52-year-old patient, follows with Dr. Rodríguez. Chronic stable medical condition include CHF EF less than 20%, COPD, diabetes mellitus type 2, hypertension, hyperlipidemia, obstructive sleep apnea, anxiety, AICD, lower extremity venous insufficiency. Patient had lower extremity wounds and has been followed by ID and Dr. Lugo from vascular. Patient has not been able to make a wound care center regularly because of transportation issues. Now presents with worsening wound on the right foot. Has had previous debridement of same. It is draining. Somewhat foul-smelling.. Patient had some chills. May 15: Patient had right foot wound debridement with Dr. Lugo. Currently in dressing. Patient received IV fluids from the ER. Stop the same. IV Lasix. Patient is on IV Unasyn and IV vancomycin per ID. Significant edema. May 16: IV Lasix 60 mg every 12. Unclear if he is making much urine. IV vancomycin was discontinued yesterday because of renal function. Some decrease in edema. Oral intake good. IV Unasyn. Being followed by ID. May 17: Making good urine. I's and O not well documented. Remains on IV Lasix 60:12. Still a significant edema. Breathing is stable. IV Unasyn. Creatinine 2.05. I discussed with Dr. Lugo from vascular. Patient might need a amputation down the road. Patient has several social issues going on. May 18: Patient placed on IV Bumex. Making urine. Significant edema present. Breathing much better. Creatinine going up. Being followed by cardiology and nephrology. May 19: Today remains on IV Bumex 2 mg every 12. We started on dobutamine drip and both the cardiology selective floor. IV Zosyn to continue. Tolerating diet well. Breathing stable. Lower extremity edema. Creatinine worsening May 20: Patient is moved to the selective cardiology floor. Remains on IV dobutamine. An IV Bumex bolus. Urine output. Noted tolerating diet. Also on Zaroxolyn. Creatinine has plateaued off May 21: Tired. Oral intake fair. Remains on IV dobutamine drip and IV Bumex and bolus. Making urine. Some improvement in creatinine. Remains on IV Zosyn. May 22: Bumex was increased to 3 mg twice a day to yesterday. Remains on dobutamine drip. IV Zosyn. Oral intake fair. Slight improvement in creatinine. Slight improvement in edema. May 23: Patient seen and evaluated bedside, continue patient on Bumex and dobutamine drip, on IV antibiotic patient is alert and oriented 3 does have lower extremity edema, and remains on room air hypotensive systolic pressure ranging from 8200 with map of 65, serum chemistry pending continued to follow up on CBC and basic metabolic panel 05/24. Patient seen and examined. States he feels much better compared to yesterday. Tolerating diet. Denies any lightheadedness or dizziness. Swelling of lower extremities are improved 05/25. Patient seen and examined. Patient pulled out his IVs and PICC line overnight. IV access had to be achieved again. Patient not confused this morning. Answering questions appropriately. Lab work WBC 16.9, hemoglobin 13.7, sodium 136, potassium 4.1, BUN 72, creatinine 2.29. 05/26. Patient seen and examined, sitting at the edge of the bed upright, denies any shortness of breath at rest, get short of breath on exertion. Lab work done showed WBC 12.5, hemoglobin 13.4, sodium 133, BUN 75, creatinine 2.08. May 27: Patient on Bumex drip 1 mg hour. Edema coming down well. Eating well. Breathing stable. IV Zosyn. Sitting at the edge of the bed. Fredy wrap's May 28: Patient being changed over to Bumex 2 mg by mouth twice a day. Increase in BUN and creatinine. We'll hold evening dose of Bumex and the morning dose of Zaroxolyn. We'll give a 500 mL of half saline overnight. May 29: Patient doing well. Keen to go home. Discharge medications discuss Dr. Ozuna from nephrology. Fluid restriction. Patient will follow up with Dr. Lugo, ID, cardiology, nephrology. Repeat labs in 3 days. Questions answered. Wound care. Discussion and discharge planning more than 35 minutes Social history: Lives with his 20-year-old son. Disabled. 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 Smoking 2 packs a day for most of his life now down to half a pack a day. Stop drinking heavy alcohol about 20 years ago. Has done marijuana. Physical examination: VITAL SIGNS: 97.7, 98, 16, 115/63, 98% room air GENERAL: Sitting at edge of the bed, comfortable EYES: Pupils equal. Conjunctiva normal. HEENT: External appearance of nose and ears normal, oral cavity grossly normal. NECK: JVD unable to assess; masses not palpable. HEART: First and second heart sounds are normal; decrease in edema LUNGS: Respiratory rate normal; diminished breath sounds ABDOMEN: Soft, nontender, liver spleen not palpable, no masses palpable. PSYCH: Alert and oriented x3; mood and affect normal MUSCULOSKELETAL:No Clubbing/cyanosis;muscles-grossly intact DERMATOLOGICAL: Right foot wound-dressing. More details - nursing notes. INVESTIGATIONS, reviewed in the clinical context: May 28: Potassium 3.9 and 116 creatinine 2.60 May 27: White count 15.3 hemoglobin 15 potassium 3.7 BUN 97 creatinine 2.33 May 22: Potassium 4.8 BUN 85 creatinine 2.5 for May 19: Potassium 4.8 BUN 78 creatinine 2.91 May 18: Potassium 4.7 bicarb 21. 72 creatinine 2.64 Wound culture: Proteus vulgaris. Streptococcus agalactiae group B May 15: White count 15.4 hemoglobin 12.4 potassium 3.7 BUN 59 creatinine 1.55 05/14/2023: White count 15 hemoglobin 13 platelets 254 sodium 134 potassium 4.2 BUN 58 creatinine 1.23 lactic acid 2.6 Assessment and plan: -Acute right lower leg cellulitis, infected right heel diabetic ulcer with prior history of debridement. Has not been able to follow the wound care center because of transport.: Better Wound swab for Gram stain and culture. Proteus vulgaris, Streptococcus agalactiae group B IV Zosyn received.-6 more weeks of home IV Underwent debridement by Dr. Lugo Followed by ID and Dr. Lugo from vascular. -Sepsis from right leg wound.: Better IV Zosyn -Acute on chronic congestive heart failure nonischemic cardiomyopathy systolic dysfunction EF less than 20%: Stabilized IV Bumex, dobutamine and Zaroxolyn received. . Entresto-hold because of renal function Discharged on Bumex 2 mg twice a day. Aldactone 25 mg twice a day AICD. Being followed by cardiology and nephrology - COPD current smoker Ventolin. -Diabetes mellitus type 2 chronically on insulin, uncontrolled with hyperglycemia and hypoglycemia. Levemir 28 units subcu daily . Diabetic diet. Accu-Cheks and sliding scale -Hyperlipidemia -Chronic kidney disease stage III from diabetic nephropathy and nephrosclerosis Baseline creatinine of 1.2 on May 14. -Acute kidney injury likely ATN from cardiorenal syndrome and possible vancomycin: Better Follow renal function. Entresto held Nephrology following -Essential hypertension Entresto-hold for now -Obstructive sleep apnea sometimes uses CPAP machine -Diabetic peripheral neuropathy -Anxiety Ativan when necessary -DJD Tylenol when necessary -Chronic nicotine dependence patient cigarette smoker Nicotine patch 14 -AICD -Lower extremity chronic venous insufficiency Disposition: Home CBC BMP, 3 days: Results to cardiology and, nephrology Plan - Discharge Summary New Discharge Prescriptions: New Piperacillin-Tazobactam [Zosyn] 3.375 gm IVPB Q8HR #120 each Aspirin 81 mg PO DAILY tab Nicotine 14Mg/24Hr Patch [Habitrol] 1 patch TRANSDERM DAILY #14 patch Potassium Chloride ER [K-Dur 20] 20 meq PO DAILY #30 tab SILVER sulfADIAZINE CREAM [Silvadene Cream] 1 applic TOPICAL BID each Midodrine [ProAmatine] 5 mg PO AC-TID #100 tab Bumetanide [BUMEX] 2 mg PO BID #120 tab Atorvastatin [Lipitor] 40 mg PO DAILY #30 tab Isosorbide Mononitrate ER [Imdur] 30 mg PO DAILY #30 tab Continue Morphine Sulfate Ir [MSIR] 30 mg PO QID INSULIN LISPRO (humaLOG) [humaLOG] 5 - 10 unit SQ ACHS PRN PRN Reason: HIGH BLOOD SUGAR DULoxetine HCL [Cymbalta] 60 mg PO BID Zolpidem [Ambien] 10 mg PO HS PRN PRN Reason: Insomnia Cyclobenzaprine [Flexeril] 10 mg PO QID Albuterol Inhaler [Ventolin Hfa Inhaler] 2 puff INHALATION RT-QID PRN PRN Reason: Shortness Of Breath Changed Spironolactone [Aldactone] 25 mg PO BID #60 tab Insulin Glargine,Hum.rec.anlog [Toujeo Solostar] 28 units SQ BID #0 Discontinued Furosemide [Lasix] 80 mg PO BID Sacubitril/Valsartan [Entresto 24 mg-26 mg Tablet] 1 tab PO BID Discharge Medication List Albuterol Inhaler [Ventolin Hfa Inhaler] 2 puff INHALATION RT-QID PRN 07/06/22 [History] INSULIN LISPRO (humaLOG) [humaLOG] 5 - 10 unit SQ ACHS PRN 07/06/22 [History] Morphine Sulfate Ir [MSIR] 30 mg PO QID 07/06/22 [History] DULoxetine HCL [Cymbalta] 60 mg PO BID 11/18/22 [History] Cyclobenzaprine [Flexeril] 10 mg PO QID 05/14/23 [History] Zolpidem [Ambien] 10 mg PO HS PRN 05/14/23 [History] Piperacillin-Tazobactam [Zosyn] 3.375 gm IVPB Q8HR #120 each 05/22/23 [Rx] Aspirin 81 mg PO DAILY tab 05/29/23 [Rx] Atorvastatin [Lipitor] 40 mg PO DAILY #30 tab 05/29/23 [Rx] Bumetanide [BUMEX] 2 mg PO BID #120 tab 05/29/23 [Rx] Insulin Glargine,Hum.rec.anlog [Toujeo Solostar] 28 units SQ BID #0 05/29/23 [Rx] Isosorbide Mononitrate ER [Imdur] 30 mg PO DAILY #30 tab 05/29/23 [Rx] Midodrine [ProAmatine] 5 mg PO AC-TID #100 tab 05/29/23 [Rx] Nicotine 14Mg/24Hr Patch [Habitrol] 1 patch TRANSDERM DAILY #14 patch 05/29/23 [Rx] Potassium Chloride ER [K-Dur 20] 20 meq PO DAILY #30 tab 05/29/23 [Rx] SILVER sulfADIAZINE CREAM [Silvadene Cream] 1 applic TOPICAL BID each 05/29/23 [Rx] Spironolactone [Aldactone] 25 mg PO BID #60 tab 05/29/23 [Rx] Follow up Appointment(s)/Referral(s): Megan Plunkett MD [STAFF PHYSICIAN] - 1 Week (Office did not answer, please zeke office to schedule apt. ) Hany Rodríguez MD [Primary Care Provider] - 06/03/23 1:00 pm [facility], [NON-STAFF] - 05/30/23 [facility], [REFERRING] - 05/29/23 (delivery between 6-8 PM tonight.) Manuel Ozuna DO [STAFF PHYSICIAN] - 1 Week (Office did not answer, please call to schedule apt. ) Martin Kaur MD [STAFF PHYSICIAN] - 06/12/23 10:15 am Yesenia Santoyo MD [STAFF PHYSICIAN] - 06/12/23 2:30 pm Ambulatory/Diagnostic Orders: Basic Metabolic Panel [LAB.AMB] Location: None Selected C Reactive Protein [LAB.AMB] Location: None Selected Complete Blood Count w/diff [LAB.AMB] Location: None Selected Erythrocyte Sedimentation Rate [LAB.AMB] Location: None Selected Patient Instructions/Handouts: Osteomyelitis (DC), Diabetic Foot Ulcers (DC) Activity/Diet/Wound Care/Special Instructions: BMP - 3 days fluid restrict 2000 cc/day Discharge/Stand Alone Forms: Who Do I Call?, Community Resources, 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
== END 2023-05-29 18:08 | disposition home health service (06) | DRG 853 ==
LOC: EC 15:30 → 6NMEDSUR 21:24 → OBSVTOIN 22:36 → 6NMEDSUR 22:38 → 3SCARD 05-19 14:35
PROVIDERS: ADMIT Hospitalist; ATTEND Hospitalist
PROC: 0QBL0ZZ Excision of Right Tarsal, Open Approach (ICD-10-PCS; principal; 2023-05-16 11:45)
PROC: 02HV33Z Insertion of Infusion Device into Superior Vena Cava, Percutaneous Approach (ICD-10-PCS; 2023-05-23)
PROC: 02HV33Z Insertion of Infusion Device into Superior Vena Cava, Percutaneous Approach (ICD-10-PCS; 2023-05-27)
DX: A41.9 Sepsis, unspecified organism (principal); I50.23 Acute on chronic systolic (congestive) heart failure; N17.0 Acute kidney failure with tubular necrosis; R57.0 Cardiogenic shock; I47.20 Ventricular tachycardia, unspecified; I42.8 Other cardiomyopathies; I13.0 Hypertensive heart and chronic kidney disease with heart failure and stage 1 through stage 4 chronic kidney disease, or unspecified chronic kidney disease; L97.412 Non-pressure chronic ulcer of right heel and midfoot with fat layer exposed; L03.115 Cellulitis of right lower limb; L03.116 Cellulitis of left lower limb; M86.9 Osteomyelitis, unspecified; E11.649 Type 2 diabetes mellitus with hypoglycemia without coma; I27.20 Pulmonary hypertension, unspecified; E11.621 Type 2 diabetes mellitus with foot ulcer; E11.22 Type 2 diabetes mellitus with diabetic chronic kidney disease; E11.42 Type 2 diabetes mellitus with diabetic polyneuropathy; E11.69 Type 2 diabetes mellitus with other specified complication; E11.65 Type 2 diabetes mellitus with hyperglycemia; N18.30 Chronic kidney disease, stage 3 unspecified; Z79.4 Long term (current) use of insulin; B96.4 Proteus (mirabilis) (morganii) as the cause of diseases classified elsewhere; B95.1 Streptococcus, group B, as the cause of diseases classified elsewhere; E78.5 Hyperlipidemia, unspecified; I08.1 Rheumatic disorders of both mitral and tricuspid valves; J44.89 Other specified chronic obstructive pulmonary disease; K59.00 Constipation, unspecified; I87.2 Venous insufficiency (chronic) (peripheral); G47.33 Obstructive sleep apnea (adult) (pediatric); E87.6 Hypokalemia; K21.9 Gastro-esophageal reflux disease without esophagitis; M54.9 Dorsalgia, unspecified; F41.9 Anxiety disorder, unspecified; G47.00 Insomnia, unspecified; F90.9 Attention-deficit hyperactivity disorder, unspecified type; I25.10 Atherosclerotic heart disease of native coronary artery without angina pectoris; I25.2 Old myocardial infarction; R32 Unspecified urinary incontinence; M19.90 Unspecified osteoarthritis, unspecified site; F12.90 Cannabis use, unspecified, uncomplicated; F17.210 Nicotine dependence, cigarettes, uncomplicated; Z71.6 Tobacco abuse counseling; Z79.891 Long term (current) use of opiate analgesic; Z79.899 Other long term (current) drug therapy; Z91.199 Patient's noncompliance with other medical treatment and regimen due to unspecified reason; Z86.14 Personal history of Methicillin resistant Staphylococcus aureus infection; Z95.810 Presence of automatic (implantable) cardiac defibrillator; Z98.1 Arthrodesis status; Z88.1 Allergy status to other antibiotic agents; Z88.8 Allergy status to other drugs, medicaments and biological substances
CPT/HCPCS: 36415; 36573; 71045; 71046; 76770; 80048; 80053; 80069; 80202; 81003; 82565; 83605; 83735; 84100; 84132; 85025; 85027; 86140; 87040; 87070; 87075; 87077; 87186; 87205; 94640; 96361; 96365; 96366; 96367; 96368; 96375; 99285

== ENCOUNTER 2023-06-04 20:09 | Inpatient (IN) | payer MEDICARE, OTHER ==
--- NOTE | 2023-06-04 20:12 | ED ---
General Adult HPI - General Source: patient, EMS, RN notes reviewed Mode of arrival: EMS Limitations: no limitations <Luis Alfredo Salmon - Last Filed: 06/04/23 20:11> - History of Present Illness -: week(s) Location: right, lower extremity Radiation: extremity (Right foot right heel) Severity scale (1-10): 9 Consistency: constant Improves with: none Worsens with: none Associated Symptoms: denies other symptoms Treatments Prior to Arrival: none <Dangelo Harrison - Last Filed: 06/06/23 22:37> - General Stated complaint: general pain Time Seen by Provider: 06/04/23 20:11 - History of Present Illness Initial comments: 52-year-old male presents emergency Department with chief complaint of pain all over. Patient had recent admission for diabetic ulcer of his right foot. Patient has a PICC line in. Patient states that he is having abdominal pain, joint pain. He was brought in by [facility]. (Luis Alfredo Salmon) This is a 52-year-old male to the emergency department today for evaluation of multiple complaints generalized body aches and pains severe pain throughout his body which she has have history of chronic pain. Patient also has underlying healing and worsening diabetic foot ulcer on the heel of his right foot. Positive drainage malodorous and was sent to ER by home nurse for evaluation (Dangelo Harrison) - Related Data Home Medications Medication Instructions Recorded Confirmed Albuterol Inhaler [Ventolin Hfa 2 puff INHALATION RT-QID PRN 07/06/22 06/04/23 Inhaler] INSULIN LISPRO (humaLOG) [humaLOG] 5 - 10 unit SQ ACHS PRN 07/06/22 06/04/23 Morphine Sulfate Ir [MSIR] 30 mg PO QID 07/06/22 06/04/23 DULoxetine HCL [Cymbalta] 60 mg PO BID 11/18/22 06/04/23 Cyclobenzaprine [Flexeril] 10 mg PO QID 05/14/23 06/04/23 Zolpidem [Ambien] 10 mg PO HS PRN 05/14/23 06/04/23 SILVER sulfADIAZINE CREAM 1 applic TOPICAL BID 06/04/23 06/04/23 [Silvadene Cream] Previous Rx's Medication Instructions Recorded Piperacillin-Tazobactam [Zosyn] 3.375 gm IVPB Q8HR #120 each 05/22/23 Aspirin 81 mg PO DAILY tab 05/29/23 Atorvastatin [Lipitor] 40 mg PO DAILY #30 tab 05/29/23 Bumetanide [BUMEX] 2 mg PO BID #120 tab 05/29/23 Insulin Glargine,Hum.rec.anlog 28 units SQ BID #0 05/29/23 [Toujeo Solostar] Isosorbide Mononitrate ER [Imdur] 30 mg PO DAILY #30 tab 05/29/23 Midodrine [ProAmatine] 5 mg PO AC-TID #100 tab 05/29/23 Nicotine 14Mg/24Hr Patch [Habitrol] 1 patch TRANSDERM DAILY #14 patch 05/29/23 Potassium Chloride ER [K-Dur 20] 20 meq PO DAILY #30 tab 05/29/23 Spironolactone [Aldactone] 25 mg PO BID #60 tab 05/29/23 Allergies Allergy/AdvReac Type Severity Reaction Status Date / Time azithromycin Allergy Anaphylaxis Verified 06/04/23 23:14 gemfibrozil [From Lopid] Allergy Rash/Hives Verified 06/04/23 23:14 Review of Systems ROS Other: All systems not noted in ROS Statement are negative. <Luis Alfredo Salmon - Last Filed: 06/04/23 20:11> ROS Other: All systems not noted in ROS Statement are negative. <Dangelo Harrison - Last Filed: 06/06/23 22:37> ROS Statement: Those systems with pertinent positive or pertinent negative responses have been documented in the HPI. Past Medical History Past Medical History: Asthma, Coronary Artery Disease (CAD), Chest Pain / Angina, Heart Failure, COPD, Diabetes Mellitus, GERD/Reflux, Hyperlipidemia, Hypertension, Myocardial Infarction ([place]), Pneumonia, Sleep Apnea/CPAP/BIPAP, Supraventricular Tachycardia (SVT) Additional Past Medical History / Comment(s): Ischemic cardiomyopathy, chronic CHF, SVT, IDDM type II, KAMINI with CPAP occasionally used, chronic cervical/back pain, DJD, diabetic foot wounds x 4 months. Last Myocardial Infarction Date:: 12/11/17 History of Any Multi-Drug Resistant Organisms: MRSA Date of last positivie culture/infection: 03/10/20 MDRO Source:: MRSA TOE Past Surgical History: Adenoidectomy, AICD, Back Surgery, Cholecystectomy, EPS, Heart Catheterization, Pacemaker, Tonsillectomy Additional Past Surgical History / Comment(s): 12/10/17 cardiac cath, previous cardiac cath, 09/02/14 AICD/pacer, EGD/colonoscopy, low back surgery with fusion. Past Anesthesia/Blood Transfusion Reactions: Motion Sickness Additional Past Anesthesia/Blood Transfusion Reaction / Comment(s): Pt states he received blood with back surgery without reaction. Type of Cardiac Device: Permanent Pacemaker, AICD Device Placement Date:: 09-02-14 Past Psychological History: ADD/ADHD, Anxiety Additional Psychological History / Comment(s): Pt lives with his old son. There are cats in the home. Pt is very independent. He states he would like a walker d/t his L foot wound. He drives. Pt states he has ADHD. Pt is disabled. He has a glucometer and nebulizer. The patient worked in the past building [employer] and [employer]. Smoking Status: Current every day smoker Past Alcohol Use History: Occasional Additional Past Alcohol Use History / Comment(s): Pt started smoking in 1984 . Currently smokig 1/2 pack daily. Pt states he was a heavy drinker in the past but quit drinking 30 yrs ago. Past Drug Use History: Marijuana Additional Drug Use History / Comment(s): Occasional marijuana use. - Past Family History Father Additional Family Medical History / Comment(s): Pt has not kept in close contact with his father for many yrs. Father was an alcoholic and pt believes he has from cirrhosis of the liver. Mother History Unknown: Yes Additional Family Medical History / Comment(s): Pt is not in contact with his mother or his father who he has heard had . <Luis Alfredo Salmon M - Last Filed: 06/04/23 20:11> General Exam <Luis Alfredo Salmon - Last Filed: 06/04/23 20:11> General appearance: alert, in no apparent distress Head exam: Present: atraumatic, normocephalic, normal inspection Eye exam: Present: normal appearance, PERRL, EOMI. Absent: scleral icterus, conjunctival injection, periorbital swelling ENT exam: Present: normal exam, mucous membranes moist Neck exam: Present: normal inspection. Absent: tenderness, meningismus, lymphadenopathy Respiratory exam: Present: normal lung sounds bilaterally. Absent: respiratory distress, wheezes, rales, rhonchi, stridor Cardiovascular Exam: Present: normal rhythm, tachycardia, normal heart sounds. Absent: systolic murmur, diastolic murmur, rubs, gallop, clicks GI/Abdominal exam: Present: soft, normal bowel sounds. Absent: distended, tenderness, guarding, rebound, rigid Extremities exam: Present: normal inspection, tenderness, normal capillary refi ll, pedal edema, other (Significant drainage and malodorous right heel). Absent: full ROM, joint swelling, calf tenderness Back exam: Present: normal inspection Neurological exam: Present: alert, oriented X3, CN II-XII intact Psychiatric exam: Present: normal affect, normal mood Skin exam: Present: warm, dry, intact, normal color. Absent: rash <Dangelo Harrison - Last Filed: 06/06/23 22:37> - General Exam Comments Initial Comments: Visual Physical Exam Vital signs reviewed General: Well-appearing, nontoxic, no acute distress. Head: Normocephalic, atraumatic Eyes: PERRLA, EOMI ENT: Airway patent Chest: Nonlabored breathing Skin: No visual rash, normal skin tone Neuro: Alert and oriented 3 Musculoskeletal: No gross abnormalities (Luis Alfredo Salmon) Course <Dangelo Harrison - Last Filed: 06/06/23 22:37> Vital Signs 06/04/23 06/04/23 06/04/23 20:51 22:07 23:38 Temperature 98.0 F 97.5 F L Pulse Rate 116 H 108 H Pulse Rate [ Recruiter ] Respiratory 20 19 Rate Blood Pressure 93/62 111/75 121/98 Blood Pressure [Left Arm] O2 Sat by Pulse 97 98 Oximetry 06/05/23 06/05/23 06/05/23 04:00 08:00 12:45 Temperature 96.9 F L 98.0 F 97.6 F Pulse Rate 104 H 101 H Pulse Rate [ 104 H 106 H Recruiter ] Respiratory 18 16 18 Rate Blood Pressure 96/74 94/81 Blood Pressure 106/81 [Left Arm] O2 Sat by Pulse 97 98 98 Oximetry 06/05/23 06/05/23 16:00 21:52 Temperature 97.6 F Pulse Rate 100 Pulse Rate [ 104 H Recruiter ] Respiratory 16 18 Rate Blood Pressure 95/62 Blood Pressure 104/82 [Left Arm] O2 Sat by Pulse 96 97 Oximetry - Reevaluation(s) Reevaluation #1: 06/05/23 01:26 Medical records reviewed (Dangelo Harrison) Reevaluation #2: 06/05/23 01:26 Patient pain is controlled (Dangelo Harrison) Reevaluation #3: 06/05/23 01:26 Patient informed of results questions answered (Dangelo Harrison) Reevaluation #4: 06/05/23 01:26 Was pt. sent in by a medical professional or institution (RAQUEL Hernandez, ELEMENTARY ESL TEACHER, urgent ca re, hospital, or assisted...) When possible be specific @ -no Did you speak to anyone other than the patient for history (EMS, parent, family, police, friend...)? What history was obtained from this source @ -no Did you review nursing and triage notes (agree or disagree)? Why? @ -agree Are old charts reviewed (outside hosp., previous admission, EMS record, old EKG, old radiological studies, urgent care reports/EKG's, assisted records)? Report findings @ -yes Differential Diagnosis (chest pain, altered mental status, abdominal pain women, abdominal pain men, vaginal bleeding, weakness, fever, dyspnea, syncope, headache, dizziness, GI bleed, back pain, seizure, CVA, palpatations, mental health, musculoskeletal)? @ -prior EKG interpreted by me (3pts min.). @ -yes X-rays interpreted by me (1pt min.). @ -yes CT interpreted by me (1pt min.). @ -no U/S interpreted by me (1pt. min.). @ -no What testing was considered but not performed or refused? (CT, X-rays, U/S, labs)? Why? @ -none What meds were considered but not given or refused? Why? @ -none Did you discuss the management of the patient with other professionals (professionals i.e. RAQUEL Hernandez, ELEMENTARY ESL TEACHER, lab, RT, psych nurse, social worker psychiatric, senior qualitative researcher, teacher, structural engineering drafting officer, wrapper caser)? Give summary @ -no Was smoking cessation discussed for >3mins.? @ -no Was critical care preformed (if so, how long)? @ -no Were there social determinants of health that impacted care today? How? (Homelessness, low income, unemployed, alcoholism, drug addiction, transportation, low edu. Level, literacy, decrease access to med. care, [place] [facility], rehab)? @ -none Was there de-escalation of care discussed even if they declined (Discuss DNR or withdrawal of care, Hospice)? DNR status @ -no What co-morbidities impacted this encounter? (DM, HTN, Smoking, COPD, CAD, Cancer, CVA, ARF, Chemo, Hep., AIDS, mental health diagnosis, sleep apnea, morbid obesity)? @ -none Was patient admitted / discharged? Hospital course, mention meds given and route, prescriptions, significant lab abnormalities, going to OR and other pertinent info. @ - 52 male will be admitted for nonhealing right heel wound, diabetic foot ulcer. Wound care IV antibiotics Admitted Undiagnosed new problem with uncertain prognosis? @ -no Drug Therapy requiring intensive monitoring for toxicity (Heparin, Nitro, Insulin, Cardizem)? @ -no Were any procedures done? @ -no Diagnosis/symptom? @ -diabetic foot ulcer concern osteomyelitis Acute, or Chronic, or Acute on Chronic? @ -Acute Uncomplicated (without systemic symptoms) or Complicated (systemic symptoms)? @ -Complicated Side effects of treatment? @ -no Exacerbation, Progression, or Severe Exacerbation? @ -exacerbation Poses a threat to life or bodily function? How? (Chest pain, [place], [place], pneumonia, PE, COPD, DKA, ARF, appy, cholecystitis, CVA, Diverticulitis, Homicidal, Suicidal, threat to staff... and all critical care pts) @ -yes with possible osteomyelitis (Dangelo Harrison) - Consultations Consultation #1: Spoke with Dr. Johnson agrees to admit this patient (Dangelo Harrison) EKG Findings - EKG Comments: EKG Findings:: EKG is sinus tachycardia 110 AL 185 QRS 117 QTC 430 - EKG Results: EKG: interpreted by ERMD <Dangelo Harrison - Last Filed: 06/06/23 22:37> Medical Decision Making <Luis Alfredo Salmon - Last Filed: 06/04/23 20:11> - Lab Data Result diagrams: 06/05/23 07:29 06/06/23 07:15 - Radiology Data Radiology results: report reviewed (X-ray with is negative for acute disease), image reviewed <Dangelo Harrison - Last Filed: 06/06/23 22:37> - Medical Decision Making I completed the quick note portion of this chart signed Luis Alfredo Salmon PA-C (Luis Alfredo Salmon) 52 male will be admitted for nonhealing right heel wound, diabetic foot ulcer. Wound care IV antibiotics (Dangelo Harrison) - Lab Data Lab Results 06/04/23 06/04/23 06/04/23 Range/Units 22:05 22:05 22:05 WBC 14.0 H (3.8-10.6) k/uL RBC 4.17 L (4.30-5.90) m/uL Hgb 11.9 L D (13.0-17.5) gm/dL Hct 36.5 L (39.0-53.0) % MCV 87.4 (80.0-100.0) fL MCH 28.6 (25.0-35.0) pg MCHC 32.7 (31.0-37.0) g/dL RDW 14.6 (11.5-15.5) % Plt Count 226 (150-450) k/uL MPV 9.4 Neutrophils % 83 % Lymphocytes % 9 % Monocytes % 5 % Eosinophils % 1 % Basophils % 0 % Neutrophils # 11.7 H (1.3-7.7) k/uL Lymphocytes # 1.3 (1.0-4.8) k/uL Monocytes # 0.7 (0-1.0) k/uL Eosinophils # 0.1 (0-0.7) k/uL Basophils # 0.1 (0-0.2) k/uL PT (10.0-12.5) sec INR (<1.2) APTT (22.0-30.0) sec Sodium 127 L (137-145) mmol/L Potassium 4.3 (3.5-5.1) mmol/L Chloride 87 L (98-107) mmol/L Carbon Dioxide 24 (22-30) mmol/L Anion Gap 16 mmol/L BUN 83 H (9-20) mg/dL Creatinine 1.78 H (0.66-1.25) mg/dL Est GFR (CKD-EPI)AfAm 49 (>60 ml/min/1.73 sqM) Est GFR (CKD-EPI)NonAf 43 (>60 ml/min/1.73 sqM) Glucose 381 H (74-99) mg/dL Plasma Lactic Acid Shane 1.9 (0.7-2.0) mmol/L Calcium 9.5 (8.4-10.2) mg/dL Phosphorus (2.5-4.5) mg/dL Magnesium (1.6-2.3) mg/dL Total Bilirubin 1.5 H (0.2-1.3) mg/dL AST 32 (17-59) U/L ALT 27 (4-49) U/L Alkaline Phosphatase 149 H (38-126) U/L C-Reactive Protein 6.5 H (<1.0) mg/dL Total Protein 8.0 (6.3-8.2) g/dL Albumin 4.0 (3.5-5.0) g/dL Acetone, Qual Negative (Negative) 06/04/23 06/04/23 Range/Units 23:14 23:14 WBC (3.8-10.6) k/uL RBC (4.30-5.90) m/uL Hgb (13.0-17.5) gm/dL Hct (39.0-53.0) % MCV (80.0-100.0) fL MCH (25.0-35.0) pg MCHC (31.0-37.0) g/dL RDW (11.5-15.5) % Plt Count (150-450) k/uL MPV Neutrophils % % Lymphocytes % % Monocytes % % Eosinophils % % Basophils % % Neutrophils # (1.3-7.7) k/uL Lymphocytes # (1.0-4.8) k/uL Monocytes # (0-1.0) k/uL Eosinophils # (0-0.7) k/uL Basophils # (0-0.2) k/uL PT 13.4 H (10.0-12.5) sec INR 1.3 H (<1.2) APTT 29.3 (22.0-30.0) sec Sodium (137-145) mmol/L Potassium (3.5-5.1) mmol/L Chloride (98-107) mmol/L Carbon Dioxide (22-30) mmol/L Anion Gap mmol/L BUN (9-20) mg/dL Creatinine (0.66-1.25) mg/dL Est GFR (CKD-EPI)AfAm (>60 ml/min/1.73 sqM) Est GFR (CKD-EPI)NonAf (>60 ml/min/1.73 sqM) Glucose (74-99) mg/dL Plasma Lactic Acid Shane (0.7-2.0) mmol/L Calcium (8.4-10.2) mg/dL Phosphorus 3.2 (2.5-4.5) mg/dL Magnesium 2.0 (1.6-2.3) mg/dL Total Bilirubin (0.2-1.3) mg/dL AST (17-59) U/L ALT (4-49) U/L Alkaline Phosphatase (38-126) U/L C-Reactive Protein (<1.0) mg/dL Total Protein (6.3-8.2) g/dL Albumin (3.5-5.0) g/dL Acetone, Qual (Negative) Disposition <Luis Alfredo Salmon - Last Filed: 06/04/23 20:11> Is patient prescribed a controlled substance at d/c from ED?: No Time of Disposition: 23:45 <Dangelo Harrison - Last Filed: 06/06/23 22:37> Clinical Impression: Cellulitis of right leg, Cellulitis, Foot osteomyelitis, right, Osteomyelitis of foot, right, acute, Wound infection, Chronic ulcer of right foot with fat layer exposed, Diabetes Disposition: ADMITTED IP TO THIS HOSP Condition: Fair
[2023-06-04] MEDS ORDERED: MORPHINE SULFATE 4 MG/ML SYRINGE IV STA (22:23)
[2023-06-04] MEDS ORDERED: ONDANSETRON 4 MG/2 ML VIAL IVP STA (22:23)
[2023-06-04] MEDS ORDERED: SODIUM CHLORIDE 0.9% 1,000 ML IV STA (22:23)
[2023-06-04] MEDS ORDERED: VANCOMYCIN IV PER PHARMACY 1 EACH MISC MISCELLANE PRN (22:23)
[2023-06-04 22:34] LABS: Basophils # (A) 0.1 k/uL (0-0.2); Basophils % (A) 0 %; Eosinophils # (A) 0.1 k/uL (0-0.7); Eosinophils % (A) 1 %; HCT 36.5 % (39.0-53.0); Lymphocytes # (A) 1.3 k/uL (1.0-4.8); Lymphocytes % (A) 9 %; MCH 28.6 pg (25.0-35.0); MCHC 32.7 g/dL (31.0-37.0); MCV 87.4 fL (80.0-100.0); Mean Platelet Volume 9.4; Monocytes # (A) 0.7 k/uL (0-1.0); Monocytes % (A) 5 %; Neutrophils # (A) 11.7 k/uL (1.3-7.7); Neutrophils % (A) 83 %; Platelet Count 226 k/uL (150-450); RBC 4.17 m/uL (4.30-5.90); RDW 14.6 % (11.5-15.5)
[2023-06-04 22:51] LABS: ALT 27 U/L (4-49); AST 32 U/L (17-59); African American GFR (CKD) 49 (>60 ml/min/1.73 sqM); Alkaline Phosphatase 149 U/L (38-126); Anion Gap 16 mmol/L; Blood Urea Nitrogen 83 mg/dL (9-20); C Reactive Protein 6.5 mg/dL (<1.0); Calcium 9.5 mg/dL (8.4-10.2); Carbon Dioxide 24 mmol/L (22-30); Chloride 87 mmol/L (98-107); Glucose 381 mg/dL (74-99); Non-African American GFR(CKD) 43 (>60 ml/min/1.73 sqM); Potassium 4.3 mmol/L (3.5-5.1); Sodium 127 mmol/L (137-145); Total Bilirubin 1.5 mg/dL (0.2-1.3)
[2023-06-04 22:56] LABS: HGB 11.9 gm/dL (13.0-17.5)
[2023-06-04] MEDS ORDERED: VANCOMYCIN 1,500 MG in SODIUM CHLORIDE 0.9% 500 ML 500 ML IVPB ONE (23:30)
[2023-06-04] MEDS ORDERED: HYDROmorphone 1 MG/ML 1 ML SYRINGE IVP STA (23:33)
[2023-06-04] MEDS ORDERED: NALOXONE 0.4 MG/ML 1 ML VIAL IV PRN (23:42)
--- NOTE | 2023-06-04 23:44 | XR ---
EXAM: XR Right Foot Complete, 3 or More Views CLINICAL HISTORY: ITS.REASON XR Reason: pain TECHNIQUE: Frontal, lateral and oblique views of the right foot. COMPARISON: No relevant prior studies available. FINDINGS: Bones/joints: Osteotomy of the fifth metatarsal mid diaphysis. Mild enthesopathic ossification of the plantar fascia. No acute fracture or dislocation. Soft tissues: Unremarkable. No radiopaque foreign body. IMPRESSION: 1. No acute fracture or dislocation. 2. Osteotomy of the fifth metatarsal mid diaphysis.
[2023-06-04 23:46] LABS: Phosphorus 3.2 mg/dL (2.5-4.5)
[2023-06-04 23:50] LABS: INR 1.3 (<1.2); Partial Thromboplastin Time 29.3 sec (22.0-30.0); Prothrombin Time 13.4 sec (10.0-12.5)
[2023-06-05] MEDS: HYDROmorphone 1 MG/ML 1 ML SYRINGE IVP PRN ×3 (00:02→10:24)
[2023-06-05] MEDS: SODIUM CHLORIDE 0.9% 1,000 ML IV SCH (00:28)
[2023-06-05 04:56] LABS: Appearance,Urine Cloudy (Clear); Bilirubin,Urine Negative (Negative); Blood,Urine Negative (Negative); Color,Urine Yellow; Glucose,Urine (UA) 1+ (Negative); Ketones,Urine Negative (Negative); Leukocyte Esterase,Urine Negative (Negative); Mucus,Urine Rare /hpf; Nitrite,Urine Negative (Negative); Protein,Urine 1+ (Negative); RBC,Urine 4 /hpf (0-5); Urobilinogen,Urine <2.0 mg/dL (<2.0); WBC,Urine 4 /hpf (0-5)
[2023-06-05 07:57] LABS: Basophils # (A) 0.1 k/uL (0-0.2); Basophils % (A) 1 %; Eosinophils # (A) 0.3 k/uL (0-0.7); Eosinophils % (A) 3 %; HGB 11.6 gm/dL (13.0-17.5); Lymphocytes % (A) 19 %; MCH 29.3 pg (25.0-35.0); MCHC 33.1 g/dL (31.0-37.0); MCV 88.6 fL (80.0-100.0); Mean Platelet Volume 9.3; Monocytes # (A) 0.7 k/uL (0-1.0); Monocytes % (A) 6 %; Neutrophils # (A) 7.5 k/uL (1.3-7.7); Neutrophils % (A) 69 %; Platelet Count 218 k/uL (150-450); RBC 3.95 m/uL (4.30-5.90); RDW 14.6 % (11.5-15.5); WBC 10.8 k/uL (3.8-10.6)
[2023-06-05 08:16] LABS: ALT 26 U/L (4-49); AST 29 U/L (17-59); African American GFR (CKD) 42 (>60 ml/min/1.73 sqM); Albumin 3.7 g/dL (3.5-5.0); Alkaline Phosphatase 131 U/L (38-126); Anion Gap 15 mmol/L; Blood Urea Nitrogen 82 mg/dL (9-20); Calcium 9.1 mg/dL (8.4-10.2); Carbon Dioxide 25 mmol/L (22-30); Chloride 89 mmol/L (98-107); Glucose 342 mg/dL (74-99); Non-African American GFR(CKD) 36 (>60 ml/min/1.73 sqM); Sodium 129 mmol/L (137-145); Total Protein 7.7 g/dL (6.3-8.2)
[2023-06-05 08:59] LABS: Glucose,Whole Blood 329 mg/dL (70-110)
[2023-06-05] MEDS ORDERED: ZOLPIDEM 5 MG TAB PO PRN (09:15)
[2023-06-05] MEDS ORDERED: ALBUTEROL HFA INHALER INHALATION PRN (09:15)
[2023-06-05] MEDS: INSULIN ASPART (NovoLOG) 100 UNIT/ML VIAL SQ SCH ×4 (09:42→20:33)
[2023-06-05] MEDS: POTASSIUM CHLORIDE ER 20 MEQ TAB.ER PO SCH (09:43)
[2023-06-05] MEDS: MIDODRINE 5 MG TAB PO SCH ×2 (09:43→18:07)
[2023-06-05] MEDS: DULoxetine HCL 60 MG CAPSULE.DR PO SCH ×2 (09:43→20:12)
[2023-06-05] MEDS: SPIRONOLACTONE 25 MG TAB PO SCH ×2 (09:43→20:10)
[2023-06-05] MEDS: BUMETANIDE 1 MG TAB PO SCH ×2 (09:43→20:11)
[2023-06-05] MEDS: ATORVASTATIN 40 MG TAB PO SCH (09:43)
[2023-06-05] MEDS: NICOTINE 14MG/24HR PATCH TRANSDERM SCH (09:44)
[2023-06-05] MEDS ORDERED: PIPERACILLIN-TAZOBACTAM 3.375 GM VIAL IVPB SCH (09:45)
[2023-06-05] MEDS: ASPIRIN 81 MG PO SCH (09:58)
[2023-06-05] MEDS: INSULIN DETEMIR (LEVEMIR) 100 UNIT/ML SYR SQ SCH (11:12)
[2023-06-05] MEDS: PIPERACILLIN-TAZOBACTAM 3.375 GM in SODIUM CHLORIDE 0.9% 100 ML IVPB SCH ×2 (11:22→20:03)
[2023-06-05] MEDS: CYCLOBENZAPRINE 10 MG TAB PO SCH ×4 (11:33→20:13)
[2023-06-05] MEDS: MORPHINE SULFATE IR 15 MG TABLET PO SCH ×4 (11:33→23:28)
[2023-06-05 12:39] LABS: Glucose,Whole Blood 356 mg/dL (70-110)
[2023-06-05] MEDS ORDERED: VANCOMYCIN 1,500 MG in SODIUM CHLORIDE 0.9% 500 ML 500 ML IVPB SCH (16:00)
[2023-06-05 16:24] LABS: Glucose,Whole Blood 247 mg/dL (70-110)
--- NOTE | 2023-06-05 18:20 | P.GSCN ---
History of Present Illness History of present illness: 52-year-old gentleman well known to me from the past patient has been multiparity patient he has a chronic wound on the right heel and he was coming to the wound. And follow-up then he lost his follow-up again he is been admitted twice in through the emergency room with different complaints patient has history of coronary artery disease, diabetes mellitus, sleep apnea, patient is recently discharged from the hospital patient IV antibiotic under care of infectious disease I have discussed in detail in the past patient will need a major amputation but he is refusing patient also has a heart catheterization and in the past on examination patient was seen in the emergency room is a Chest is clear few rhonchi at the lung bases first and second sound present Abdomen is soft nontender Vascular brachial radial femorals are 1+ patient has a chronic wound right foot involving the calcaneus bone and also patient has a [id number] of the metatarsal patient has a facial ulcer on the right lower extremity Plan is patient is under care of for IV antibiotic we will continue follow with you prognosis is guarded today again I'll discuss with her in detail he needs above-knee amputation he says that we think about it wrap 2 tied he wants go to sleep Past Medical History Past Medical History: Asthma, Coronary Artery Disease (CAD), Chest Pain / Angina, Heart Failure, COPD, Diabetes Mellitus, GERD/Reflux, Hyperlipidemia, Hypertension, Myocardial Infarction ([place]), Pneumonia, Sleep Apnea/CPAP/BIPAP, Supraventricular Tachycardia (SVT) Additional Past Medical History / Comment(s): Ischemic cardiomyopathy, chronic CHF, SVT, IDDM type II, KAMINI with CPAP occasionally used, chronic cervical/back pain, DJD, diabetic foot wounds x 4 months. Last Myocardial Infarction Date:: 12/11/17 History of Any Multi-Drug Resistant Organisms: MRSA Year Discovered:: 03/10/20 MDRO Source:: MRSA TOE Past Surgical History: Adenoidectomy, AICD, Back Surgery, Cholecystectomy, EPS, Heart Catheterization, Pacemaker, Tonsillectomy Additional Past Surgical History / Comment(s): 12/10/17 cardiac cath, previous cardiac cath, 09/02/14 AICD/pacer, EGD/colonoscopy, low back surgery with fusion. Past Anesthesia/Blood Transfusion Reactions: Motion Sickness Additional Past Anesthesia/Blood Transfusion Reaction / Comm: Pt states he received blood with back surgery without reaction. Type of Cardiac Device: Permanent Pacemaker, AICD Device Placement Date:: 09-02-14 Past Psychological History: ADD/ADHD, Anxiety Smoking Status: Current every day smoker Past Alcohol Use History: Occasional Past Drug Use History: Marijuana - Past Family History Father Additional Family Medical History / Comment(s): Pt has not kept in close contact with his father for many yrs. Father was an alcoholic and pt believes he has from cirrhosis of the liver. Mother History Unknown: Yes Additional Family Medical History / Comment(s): Pt is not in contact with his mother or his father who he has heard had . Medications and Allergies Home Medications Medication Instructions Recorded Confirmed Type Albuterol Inhaler [Ventolin Hfa 2 puff INHALATION RT-QID PRN 07/06/22 06/04/23 History Inhaler] INSULIN LISPRO (humaLOG) [humaLOG] 5 - 10 unit SQ ACHS PRN 07/06/22 06/04/23 History Morphine Sulfate Ir [MSIR] 30 mg PO QID 07/06/22 06/04/23 History DULoxetine HCL [Cymbalta] 60 mg PO BID 11/18/22 06/04/23 History Cyclobenzaprine [Flexeril] 10 mg PO QID 05/14/23 06/04/23 History Zolpidem [Ambien] 10 mg PO HS PRN 05/14/23 06/04/23 History Piperacillin-Tazobactam [Zosyn] 3.375 gm IVPB Q8HR #120 each 05/22/23 06/04/23 Rx Aspirin 81 mg PO DAILY tab 05/29/23 06/04/23 Rx Atorvastatin [Lipitor] 40 mg PO DAILY #30 tab 05/29/23 06/04/23 Rx Bumetanide [BUMEX] 2 mg PO BID #120 tab 05/29/23 06/04/23 Rx Insulin Glargine,Hum.rec.anlog 28 units SQ BID #0 05/29/23 06/04/23 Rx [Toujeo Solostar] Isosorbide Mononitrate ER [Imdur] 30 mg PO DAILY #30 tab 05/29/23 06/04/23 Rx Midodrine [ProAmatine] 5 mg PO AC-TID #100 tab 05/29/23 06/04/23 Rx Nicotine 14Mg/24Hr Patch [Habitrol] 1 patch TRANSDERM DAILY #14 patch 05/29/23 06/04/23 Rx Potassium Chloride ER [K-Dur 20] 20 meq PO DAILY #30 tab 05/29/23 06/04/23 Rx Spironolactone [Aldactone] 25 mg PO BID #60 tab 05/29/23 06/04/23 Rx SILVER sulfADIAZINE CREAM 1 applic TOPICAL BID 06/04/23 06/04/23 History [Silvadene Cream] Allergies Allergy/AdvReac Type Severity Reaction Status Date / Time azithromycin Allergy Anaphylaxis Verified 06/04/23 23:14 gemfibrozil [From Lopid] Allergy Rash/Hives Verified 06/04/23 23:14 Surgical - Exam Vital Signs Temp Pulse Resp BP Pulse Ox 98.0 F 116 H 20 93/62 97 06/04/23 20:51 06/04/23 20:51 06/04/23 20:51 06/04/23 20:51 06/04/23 20:51 Results - Labs 06/05/23 07:29 06/05/23 07:29 Abnormal Lab Results - Last 24 Hours (Table) 06/04/23 06/04/23 06/04/23 Range/Units 22:05 22:05 23:14 WBC 14.0 H (3.8-10.6) k/uL RBC 4.17 L (4.30-5.90) m/uL Hgb 11.9 L D (13.0-17.5) gm/dL Hct 36.5 L (39.0-53.0) % Neutrophils # 11.7 H (1.3-7.7) k/uL PT 13.4 H (10.0-12.5) sec INR 1.3 H (<1.2) Sodium 127 L (137-145) mmol/L Chloride 87 L (98-107) mmol/L BUN 83 H (9-20) mg/dL Creatinine 1.78 H (0.66-1.25) mg/dL Glucose 381 H (74-99) mg/dL POC Glucose (mg/dL) (70-110) mg/dL Total Bilirubin 1.5 H (0.2-1.3) mg/dL Alkaline Phosphatase 149 H (38-126) U/L C-Reactive Protein 6.5 H (<1.0) mg/dL Urine Protein (Negative) Urine Glucose (UA) (Negative) Urine Mucus (None) /hpf 06/05/23 06/05/23 06/05/23 Range/Units 04:30 07:29 07:29 WBC 10.8 H (3.8-10.6) k/uL RBC 3.95 L (4.30-5.90) m/uL Hgb 11.6 L (13.0-17.5) gm/dL Hct 35.0 L (39.0-53.0) % Neutrophils # (1.3-7.7) k/uL PT (10.0-12.5) sec INR (<1.2) Sodium 129 L (137-145) mmol/L Chloride 89 L (98-107) mmol/L BUN 82 H (9-20) mg/dL Creatinine 2.03 H (0.66-1.25) mg/dL Glucose 342 H (74-99) mg/dL POC Glucose (mg/dL) (70-110) mg/dL Total Bilirubin (0.2-1.3) mg/dL Alkaline Phosphatase 131 H (38-126) U/L C-Reactive Protein (<1.0) mg/dL Urine Protein 1+ H (Negative) Urine Glucose (UA) 1+ H (Negative) Urine Mucus Rare H (None) /hpf 06/05/23 06/05/23 06/05/23 Range/Units 08:58 12:37 16:23 WBC (3.8-10.6) k/uL RBC (4.30-5.90) m/uL Hgb (13.0-17.5) gm/dL Hct (39.0-53.0) % Neutrophils # (1.3-7.7) k/uL PT (10.0-12.5) sec INR (<1.2) Sodium (137-145) mmol/L Chloride (98-107) mmol/L BUN (9-20) mg/dL Creatinine (0.66-1.25) mg/dL Glucose (74-99) mg/dL POC Glucose (mg/dL) 329 H 356 H 247 H (70-110) mg/dL Total Bilirubin (0.2-1.3) mg/dL Alkaline Phosphatase (38-126) U/L C-Reactive Protein (<1.0) mg/dL Urine Protein (Negative) Urine Glucose (UA) (Negative) Urine Mucus (None) /hpf Diabetes panel 06/04/23 06/05/23 Range/Units 22:05 07:29 Sodium 127 L 129 L (137-145) mmol/L Potassium 4.3 4.0 (3.5-5.1) mmol/L Chloride 87 L 89 L (98-107) mmol/L Carbon Dioxide 24 25 (22-30) mmol/L BUN 83 H 82 H (9-20) mg/dL Creatinine 1.78 H 2.03 H (0.66-1.25) mg/dL Glucose 381 H 342 H (74-99) mg/dL Calcium 9.5 9.1 (8.4-10.2) mg/dL AST 32 29 (17-59) U/L ALT 27 26 (4-49) U/L Alkaline Phosphatase 149 H 131 H (38-126) U/L Total Protein 8.0 7.7 (6.3-8.2) g/dL Albumin 4.0 3.7 (3.5-5.0) g/dL Calcium panel 06/04/23 06/04/23 06/05/23 Range/Units 22:05 23:14 07:29 Calcium 9.5 9.1 (8.4-10.2) mg/dL Phosphorus 3.2 (2.5-4.5) mg/dL Albumin 4.0 3.7 (3.5-5.0) g/dL Pituitary panel 06/04/23 06/05/23 Range/Units 22:05 07:29 Sodium 127 L 129 L (137-145) mmol/L Potassium 4.3 4.0 (3.5-5.1) mmol/L Chloride 87 L 89 L (98-107) mmol/L Carbon Dioxide 24 25 (22-30) mmol/L BUN 83 H 82 H (9-20) mg/dL Creatinine 1.78 H 2.03 H (0.66-1.25) mg/dL Glucose 381 H 342 H (74-99) mg/dL Calcium 9.5 9.1 (8.4-10.2) mg/dL Adrenal panel 06/04/23 06/05/23 Range/Units 22:05 07:29 Sodium 127 L 129 L (137-145) mmol/L Potassium 4.3 4.0 (3.5-5.1) mmol/L Chloride 87 L 89 L (98-107) mmol/L Carbon Dioxide 24 25 (22-30) mmol/L BUN 83 H 82 H (9-20) mg/dL Creatinine 1.78 H 2.03 H (0.66-1.25) mg/dL Glucose 381 H 342 H (74-99) mg/dL Calcium 9.5 9.1 (8.4-10.2) mg/dL Total Bilirubin 1.5 H 1.0 (0.2-1.3) mg/dL AST 32 29 (17-59) U/L ALT 27 26 (4-49) U/L Alkaline Phosphatase 149 H 131 H (38-126) U/L Total Protein 8.0 7.7 (6.3-8.2) g/dL Albumin 4.0 3.7 (3.5-5.0) g/dL
[2023-06-05 20:32] LABS: Glucose,Whole Blood 145 mg/dL (70-110)
--- NOTE | 2023-06-05 21:03 | P.HPIM ---
History of Present Illness H&P Date: 06/05/23 Chief Complaint: Left foot abscess This is a 52-year-old patient, follows with Dr. Rodríguez. Chronic stable medical condition include CHF EF less than 20%, COPD, diabetes mellitus type 2, hypertension, hyperlipidemia, obstructive sleep apnea, anxiety, AICD, lower extremity venous insufficiency. Patient had lower extremity wounds and has been followed by ID and Dr. Lugo from vascular. Patient recently in the hospital from May 14 through May 29. Patient had worsening wound after right foot. She has been told multiple times to Dr. Lugo to proceed with amputation. Last admission he also was on IV Bumex drip and dobutamine drip for congestive heart failure. Was discharged home on antibiotics. Patient now presents here to again with worsening wound. malodorous drainage. Denies fever and chills. Tired. Review of systems: GEN.: Tired EYES: None HEENT: None NECK: None RESPIRATORY: [Baseline some shortness of breath CARDIOVASCULAR: None GASTROINTESTINAL: None GENITOURINARY: None MUSCULOSKELETAL: Joint pains LYMPHATICS: None HEMATOLOGICAL: None PSYCHIATRY: None NEUROLOGICAL: Some neuropathy Social history: Lives with his 20-year-old son. Disabled. 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 Smoking 2 packs a day for most of his life . Stop drinking heavy alcohol about 20 years ago. Has done marijuana. Physical examination: VITAL SIGNS: 98, 116, 20, 93/62, 97% room air upon presentation GENERAL: Laying in bed, tired EYES: Pupils equal. Conjunctiva normal. HEENT: External appearance of nose and ears normal, oral cavity grossly normal. NECK: JVD unable to assess; masses not palpable. HEART: First and second heart sounds are normal; edema present. LUNGS: Respiratory rate normal; diminished breath sounds ABDOMEN: Soft, nontender, liver spleen not palpable, no masses palpable. PSYCH: Alert and oriented x3; mood and affect anxious. NEUROLOGICAL: Cranial nerves grossly intact. No facial asymmetry DERMATOLOGICAL: Right foot wound. Details in nursing notes. INVESTIGATIONS, reviewed in the clinical context: June 05: White count 10.8 hemoglobin 11.6 platelets 218 sodium 129 potassium 4.0 BUN 82 creatinine 2.03 June 04: White count 14 hemoglobin 11.9 platelets 226 sodium 127 potassium 4.3 BUN 93 creatinine 1.78 EKG tracing personally reviewed by me-sinus tachycardia. Nonspecific ST-T wave changes. Right foot x-ray: No acute fracture dislocation. Osteotomy of the fifth metatarsal and mid diaphysis. Previous labs from last admission May 28: Potassium 3.9 and 116 creatinine 2.60 Wound culture: Proteus vulgaris. Streptococcus agalactiae group B Assessment and plan: -Acute on chronic recurrent right lower leg cellulitis, infected right heel diabetic ulcer with prior history of debridement. Has been told for amputation before. Worsening Wound swab for Gram stain and culture. Proteus vulgaris, Streptococcus agalactiae group B from last admission IV Zosyn is received from last admission. Patient has not healed with antibiotics and debridement alone. Does need amputation as discussed previously with Dr. Lugo. This was reinforced at length with the patient. -chronic congestive heart failure nonischemic cardiomyopathy systolic dysfunction EF less than 20%: Stabilized Bumex 2 mg twice a day. Aldactone 25 mg twice a day AICD. Fluid restriction Being followed by cardiology and nephrology - COPD in a previous smoker Ventolin. -Diabetes mellitus type 2 chronically on insulin, uncontrolled with hyperglycemia and hypoglycemia. Levemir 28 units subcu daily . Diabetic diet. Accu-Cheks and sliding scale -Hyperlipidemia -Chronic kidney disease stage III from diabetic nephropathy and nephrosclerosis Baseline creatinine of 1.2 on May 14. -Acute kidney injury likely ATN from cardiorenal syndrome Follow renal function. Nephrology consulted -Hyponatremia Fluid restriction -Essential hypertension -Obstructive sleep apnea sometimes uses CPAP machine -Diabetic peripheral neuropathy -Anxiety Ativan when necessary -DJD Tylenol when necessary -AICD -Lower extremity chronic venous insufficiency -Full code Consult ID, vascular, cardiology, nephrology. Fluid restriction. Cardiology clearance for amputation. Past Medical History Past Medical History: Asthma, Coronary Artery Disease (CAD), Chest Pain / Angina, Heart Failure, COPD, Diabetes Mellitus, GERD/Reflux, Hyperlipidemia, Hypertension, Myocardial Infarction ([place]), Pneumonia, Sleep Apnea/CPAP/BIPAP, Supraventricular Tachycardia (SVT) Additional Past Medical History / Comment(s): Ischemic cardiomyopathy, chronic CHF, SVT, IDDM type II, KAMINI with CPAP occasionally used, chronic cervical/back pain, DJD, diabetic foot wounds x 4 months. Last Myocardial Infarction Date:: 12/11/17 History of Any Multi-Drug Resistant Organisms: MRSA Date of last positivie culture/infection: 03/10/20 MDRO Source:: MRSA TOE Past Surgical History: Adenoidectomy, AICD, Back Surgery, Cholecystectomy, EPS, Heart Catheterization, Pacemaker, Tonsillectomy Additional Past Surgical History / Comment(s): 12/10/17 cardiac cath, previous cardiac cath, 09/02/14 AICD/pacer, EGD/colonoscopy, low back surgery with fusion. Past Anesthesia/Blood Transfusion Reactions: Motion Sickness Additional Past Anesthesia/Blood Transfusion Reaction / Comment(s): Pt states he received blood with back surgery without reaction. Type of Cardiac Device: Permanent Pacemaker, AICD Device Placement Date:: 09-02-14 Past Psychological History: ADD/ADHD, Anxiety Smoking Status: Current every day smoker Past Alcohol Use History: Occasional Past Drug Use History: Marijuana - Past Family History Father Additional Family Medical History / Comment(s): Pt has not kept in close contact with his father for many yrs. Father was an alcoholic and pt believes he has from cirrhosis of the liver. Mother History Unknown: Yes Additional Family Medical History / Comment(s): Pt is not in contact with his mother or his father who he has heard had . Medications and Allergies Home Medications Medication Instructions Recorded Confirmed Type Albuterol Inhaler [Ventolin Hfa 2 puff INHALATION RT-QID PRN 07/06/22 06/04/23 History Inhaler] INSULIN LISPRO (humaLOG) [humaLOG] 5 - 10 unit SQ ACHS PRN 07/06/22 06/04/23 History Morphine Sulfate Ir [MSIR] 30 mg PO QID 07/06/22 06/04/23 History DULoxetine HCL [Cymbalta] 60 mg PO BID 11/18/22 06/04/23 History Cyclobenzaprine [Flexeril] 10 mg PO QID 05/14/23 06/04/23 History Zolpidem [Ambien] 10 mg PO HS PRN 05/14/23 06/04/23 History Piperacillin-Tazobactam [Zosyn] 3.375 gm IVPB Q8HR #120 each 05/22/23 06/04/23 Rx Aspirin 81 mg PO DAILY tab 05/29/23 06/04/23 Rx Atorvastatin [Lipitor] 40 mg PO DAILY #30 tab 05/29/23 06/04/23 Rx Bumetanide [BUMEX] 2 mg PO BID #120 tab 05/29/23 06/04/23 Rx Insulin Glargine,Hum.rec.anlog 28 units SQ BID #0 05/29/23 06/04/23 Rx [Toujeo Solostar] Isosorbide Mononitrate ER [Imdur] 30 mg PO DAILY #30 tab 05/29/23 06/04/23 Rx Midodrine [ProAmatine] 5 mg PO AC-TID #100 tab 05/29/23 06/04/23 Rx Nicotine 14Mg/24Hr Patch [Habitrol] 1 patch TRANSDERM DAILY #14 patch 05/29/23 06/04/23 Rx Potassium Chloride ER [K-Dur 20] 20 meq PO DAILY #30 tab 05/29/23 06/04/23 Rx Spironolactone [Aldactone] 25 mg PO BID #60 tab 05/29/23 06/04/23 Rx SILVER sulfADIAZINE CREAM 1 applic TOPICAL BID 06/04/23 06/04/23 History [Silvadene Cream] Allergies Allergy/AdvReac Type Severity Reaction Status Date / Time azithromycin Allergy Anaphylaxis Verified 06/04/23 23:14 gemfibrozil [From Lopid] Allergy Rash/Hives Verified 06/04/23 23:14 Physical Exam Vitals: Vital Signs Temp Pulse Pulse Resp BP Pulse Ox 06/05/23 08:00 98.0 F 101 H 16 94/81 98 06/05/23 04:00 96.9 F L 104 H 104 H 18 96/74 97 06/04/23 23:38 97.5 F L 108 H 19 121/98 98 06/04/23 22:07 111/75 06/04/23 20:51 98.0 F 116 H 20 93/62 97 Intake and Output 06/04/23 06/05/23 06/05/23 22:59 06:59 14:59 Other: Weight 90.718 kg Results CBC & Chem 7: 06/05/23 07:29 06/05/23 07:29 Labs: Abnormal Lab Results - Last 24 Hours (Table) 06/04/23 06/04/23 06/04/23 Range/Units 22:05 22:05 23:14 WBC 14.0 H (3.8-10.6) k/uL RBC 4.17 L (4.30-5.90) m/uL Hgb 11.9 L D (13.0-17.5) gm/dL Hct 36.5 L (39.0-53.0) % Neutrophils # 11.7 H (1.3-7.7) k/uL PT 13.4 H (10.0-12.5) sec INR 1.3 H (<1.2) Sodium 127 L (137-145) mmol/L Chloride 87 L (98-107) mmol/L BUN 83 H (9-20) mg/dL Creatinine 1.78 H (0.66-1.25) mg/dL Glucose 381 H (74-99) mg/dL POC Glucose (mg/dL) (70-110) mg/dL Total Bilirubin 1.5 H (0.2-1.3) mg/dL Alkaline Phosphatase 149 H (38-126) U/L C-Reactive Protein 6.5 H (<1.0) mg/dL Urine Protein (Negative) Urine Glucose (UA) (Negative) Urine Mucus (None) /hpf 06/05/23 06/05/23 06/05/23 Range/Units 04:30 07:29 07:29 WBC 10.8 H (3.8-10.6) k/uL RBC 3.95 L (4.30-5.90) m/uL Hgb 11.6 L (13.0-17.5) gm/dL Hct 35.0 L (39.0-53.0) % Neutrophils # (1.3-7.7) k/uL PT (10.0-12.5) sec INR (<1.2) Sodium 129 L (137-145) mmol/L Chloride 89 L (98-107) mmol/L BUN 82 H (9-20) mg/dL Creatinine 2.03 H (0.66-1.25) mg/dL Glucose 342 H (74-99) mg/dL POC Glucose (mg/dL) (70-110) mg/dL Total Bilirubin (0.2-1.3) mg/dL Alkaline Phosphatase 131 H (38-126) U/L C-Reactive Protein (<1.0) mg/dL Urine Protein 1+ H (Negative) Urine Glucose (UA) 1+ H (Negative) Urine Mucus Rare H (None) /hpf 06/05/23 Range/Units 08:58 WBC (3.8-10.6) k/uL RBC (4.30-5.90) m/uL Hgb (13.0-17.5) gm/dL Hct (39.0-53.0) % Neutrophils # (1.3-7.7) k/uL PT (10.0-12.5) sec INR (<1.2) Sodium (137-145) mmol/L Chloride (98-107) mmol/L BUN (9-20) mg/dL Creatinine (0.66-1.25) mg/dL Glucose (74-99) mg/dL POC Glucose (mg/dL) 329 H (70-110) mg/dL Total Bilirubin (0.2-1.3) mg/dL Alkaline Phosphatase (38-126) U/L C-Reactive Protein (<1.0) mg/dL Urine Protein (Negative) Urine Glucose (UA) (Negative) Urine Mucus (None) /hpf
--- NOTE | 2023-06-05 21:57 | XR ---
EXAMINATION TYPE: XR chest 2V DATE OF EXAM: 06/05/2023 COMPARISON: 05/19/2023 HISTORY: 52-year-old male CHF TECHNIQUE: PA and lateral views FINDINGS: Left anterior chest wall ICD generator with right ventricular lead. Heart mildly enlarged. Hyperinfla tion. Interstitial density without consolidation or pleural effusion. The distal aspect of the right PICC line is not clearly seen beyond the upper SVC region. IMPRESSION: Mild cardiomegaly and interstitial densities. Correlate first CHF with pulmonary vascular congestion. Interstitial pneumonitis or atypical pneumonia would be an alternative consideration.
--- NOTE | 2023-06-05 22:20 | P.CONS ---
History of Present Illness - Reason for Consult Consult date: 06/05/23 ulcer Requesting physician: Dangelo Harrison - Chief Complaint Weakness and difficulty getting his antibiotics infused x days - History of Present Illness Patient is a 52-year-old male with a past medical history significant for diabetes mellitus patient did have extensive right heel diabetic foot infection with underlying osteomyelitis with a recent admission to the hospital patient is status post debridement and culture positive for Proteus providentia anaerobes and Acinetobacter, patient did get a PICC line and was advised a 6- week course of IV Zosyn with the patient was receiving in the outpatient setting because of his extensive wound patient was advised amputation which he refused patient now presenting back to the hospital concerning for generalized body aches not feeling well and apparently the patient did have a problem infusing his outpatient IV and by therapy patient was advised by the home care nurse to go to the ER on presentation to the hospital the patient was afebrile and no fever has been ordered subsequently patient did have a white count of 10.8 with a left shift did have elevated BUN/creatinine enzymes are normal patient did have a x-ray of the foot no acute fracture or dislocation osteotomy of the fifth metatarsal mid diaphysis patient was started on vancomycin and Zosyn infectious disease was consulted for further management of antibiotic therapy, patient did have a diabetic neuropathy denies significant pain to his right heel wound area with a bone exposed patient denies any foul-smelling drainage denies any chest pain shortness of breath or cough no abdominal pain no diarrhea Review of Systems Positive point and negatives has been mentioned in the HPI, complete review of systems was performed and all other systems are negative Past Medical History Past Medical History: Asthma, Coronary Artery Disease (CAD), Chest Pain / Angina, Heart Failure, COPD, Diabetes Mellitus, GERD/Reflux, Hyperlipidemia, Hypertension, Myocardial Infarction ([place]), Pneumonia, Sleep Apnea/CPAP/BIPAP, Supraventricular Tachycardia (SVT) Additional Past Medical History / Comment(s): Ischemic cardiomyopathy, chronic CHF, SVT, IDDM type II, KAMNII with CPAP occasionally used, chronic cervical/back pain, DJD, diabetic foot wounds x 4 months. Last Myocardial Infarction Date:: 12/11/17 History of Any Multi-Drug Resistant Organisms: MRSA Year Discovered:: 03/10/20 MDRO Source:: MRSA TOE Past Surgical History: Adenoidectomy, AICD, Back Surgery, Cholecystectomy, EPS, Heart Catheterization, Pacemaker, Tonsillectomy Additional Past Surgical History / Comment(s): 12/10/17 cardiac cath, previous cardiac cath, 09/02/14 AICD/pacer, EGD/colonoscopy, low back surgery with fusion. Past Anesthesia/Blood Transfusion Reactions: Motion Sickness Additional Past Anesthesia/Blood Transfusion Reaction / Comm: Pt states he received blood with back surgery without reaction. Type of Cardiac Device: Permanent Pacemaker, AICD Device Placement Date:: 09-02-14 Past Psychological History: ADD/ADHD, Anxiety Smoking Status: Current every day smoker Past Alcohol Use History: Occasional Past Drug Use History: Marijuana - Past Family History Father Additional Family Medical History / Comment(s): Pt has not kept in close contact with his father for many yrs. Father was an alcoholic and pt believes he has from cirrhosis of the liver. Mother History Unknown: Yes Additional Family Medical History / Comment(s): Pt is not in contact with his mother or his father who he has heard had . Medications and Allergies Home Medications Medication Instructions Recorded Confirmed Type Albuterol Inhaler [Ventolin Hfa 2 puff INHALATION RT-QID PRN 07/06/22 06/04/23 History Inhaler] INSULIN LISPRO (humaLOG) [humaLOG] 5 - 10 unit SQ ACHS PRN 07/06/22 06/04/23 History Morphine Sulfate Ir [MSIR] 30 mg PO QID 07/06/22 06/04/23 History DULoxetine HCL [Cymbalta] 60 mg PO BID 11/18/22 06/04/23 History Cyclobenzaprine [Flexeril] 10 mg PO QID 05/14/23 06/04/23 History Zolpidem [Ambien] 10 mg PO HS PRN 05/14/23 06/04/23 History Piperacillin-Tazobactam [Zosyn] 3.375 gm IVPB Q8HR #120 each 05/22/23 06/04/23 Rx Aspirin 81 mg PO DAILY tab 05/29/23 06/04/23 Rx Atorvastatin [Lipitor] 40 mg PO DAILY #30 tab 05/29/23 06/04/23 Rx Bumetanide [BUMEX] 2 mg PO BID #120 tab 05/29/23 06/04/23 Rx Midodrine [ProAmatine] 5 mg PO AC-TID #100 tab 05/29/23 06/04/23 Rx Nicotine 14Mg/24Hr Patch [Habitrol] 1 patch TRANSDERM DAILY #14 patch 05/29/23 06/04/23 Rx Potassium Chloride ER [K-Dur 20] 20 meq PO DAILY #30 tab 05/29/23 06/04/23 Rx SILVER sulfADIAZINE CREAM 1 applic TOPICAL BID 06/04/23 06/04/23 History [Silvadene Cream] Dapagliflozin Propanediol [Farxiga] 10 mg PO DAILY #30 tab 06/10/23 Rx Insulin Glargine,Hum.rec.anlog 28 units SQ DAILY #0 06/10/23 06/04/23 Rx [Toujeo Solostar] Metoprolol Succinate (ER) [Toprol 25 mg PO DAILY #30 tab 06/10/23 Rx XL] Spironolactone [Aldactone] 25 mg PO DAILY #60 tab 06/10/23 06/04/23 Rx Allergies Allergy/AdvReac Type Severity Reaction Status Date / Time azithromycin Allergy Anaphylaxis Verified 06/04/23 23:14 gemfibrozil [From Lopid] Allergy Rash/Hives Verified 06/04/23 23:14 Physical Exam Vitals: Vital Signs Temp Pulse Pulse Resp BP Pulse Ox 06/05/23 08:00 98.0 F 101 H 16 94/81 98 06/05/23 04:00 96.9 F L 104 H 104 H 18 96/74 97 06/04/23 23:38 97.5 F L 108 H 19 121/98 98 06/04/23 22:07 111/75 06/04/23 20:51 98.0 F 116 H 20 93/62 97 Intake and Output 06/04/23 06/05/23 06/05/23 22:59 06:59 14:59 Other: Weight 90.718 kg GENERAL DESCRIPTION: Middle-aged male lying in bed, no distress. No tachypnea or accessory muscle of respiration use. HEENT: Shows Pallor , no scleral icterus. Oral mucous membrane is dry. No pharyngeal erythema or thrush NECK: Trachea central, no thyromegaly. LUNGS: Unlabored breathing. Clear to auscultation anteriorly. No wheeze or crackle. HEART: S1, S2, regular rate and rhythm. No loud murmur ABDOMEN: Soft, no tenderness , guarding or rigidity, no organomegaly EXTREMITIES: Right heel wound with the bone exposed some slough tissue no foul-smelling drainage SKIN: No rash, no masses palpable. NEUROLOGICAL: The patient is awake, alert, oriented x3, mood and affect normal. Results CBC & Chem 7: 06/09/23 06:29 06/10/23 07:30 Labs: Abnormal Lab Results - Last 24 Hours (Table) 06/04/23 06/04/23 06/04/23 Range/Units 22:05 22:05 23:14 WBC 14.0 H (3.8-10.6) k/uL RBC 4.17 L (4.30-5.90) m/uL Hgb 11.9 L D (13.0-17.5) gm/dL Hct 36.5 L (39.0-53.0) % Neutrophils # 11.7 H (1.3-7.7) k/uL PT 13.4 H (10.0-12.5) sec INR 1.3 H (<1.2) Sodium 127 L (137-145) mmol/L Chloride 87 L (98-107) mmol/L BUN 83 H (9-20) mg/dL Creatinine 1.78 H (0.66-1.25) mg/dL Glucose 381 H (74-99) mg/dL POC Glucose (mg/dL) (70-110) mg/dL Total Bilirubin 1.5 H (0.2-1.3) mg/dL Alkaline Phosphatase 149 H (38-126) U/L C-Reactive Protein 6.5 H (<1.0) mg/dL Urine Protein (Negative) Urine Glucose (UA) (Negative) Urine Mucus (None) /hpf 06/05/23 06/05/23 06/05/23 Range/Units 04:30 07:29 07:29 WBC 10.8 H (3.8-10.6) k/uL RBC 3.95 L (4.30-5.90) m/uL Hgb 11.6 L (13.0-17.5) gm/dL Hct 35.0 L (39.0-53.0) % Neutrophils # (1.3-7.7) k/uL PT (10.0-12.5) sec INR (<1.2) Sodium 129 L (137-145) mmol/L Chloride 89 L (98-107) mmol/L BUN 82 H (9-20) mg/dL Creatinine 2.03 H (0.66-1.25) mg/dL Glucose 342 H (74-99) mg/dL POC Glucose (mg/dL) (70-110) mg/dL Total Bilirubin (0.2-1.3) mg/dL Alkaline Phosphatase 131 H (38-126) U/L C-Reactive Protein (<1.0) mg/dL Urine Protein 1+ H (Negative) Urine Glucose (UA) 1+ H (Negative) Urine Mucus Rare H (None) /hpf 06/05/23 Range/Units 08:58 WBC (3.8-10.6) k/uL RBC (4.30-5.90) m/uL Hgb (13.0-17.5) gm/dL Hct (39.0-53.0) % Neutrophils # (1.3-7.7) k/uL PT (10.0-12.5) sec INR (<1.2) Sodium (137-145) mmol/L Chloride (98-107) mmol/L BUN (9-20) mg/dL Creatinine (0.66-1.25) mg/dL Glucose (74-99) mg/dL POC Glucose (mg/dL) 329 H (70-110) mg/dL Total Bilirubin (0.2-1.3) mg/dL Alkaline Phosphatase (38-126) U/L C-Reactive Protein (<1.0) mg/dL Urine Protein (Negative) Urine Glucose (UA) (Negative) Urine Mucus (None) /hpf Assessment and Plan (1) Foot osteomyelitis, right Status: Acute Code(s): M86.9 - OSTEOMYELITIS, UNSPECIFIED SNOMED Code(s): [id number] Plan: 1patient with a chronic nonhealing wound to the right heel area concerning for acute or chronic osteomyelitis culture was positive predominantly with gram- negative pathogen on his last visit patient appears to the hospital generalized not feeling well unable to take care of himself at home and infuses antibiotics 2-patient with renal insufficiency high risk of nephrotoxicity 3-patient benefit from possible amputation with the patient has refused in the past vascular surgery has been consulted 4-we will keep the patient on Zosyn however discontinue vancomycin decrease risk of nephrotoxicity We will follow on clinical condition and cultures to further adjust medication i f needed Thank you for this consultation we will follow the patient along with you Dictation was produced using [employer] dictation software. please excuse any grammatical, word or spelling errors. Time with Patient: Greater than 30
[2023-06-06] MEDS ORDERED: diphenhydrAMINE 25 MG CAP PO STA (01:26)
[2023-06-06] MEDS: PIPERACILLIN-TAZOBACTAM 3.375 GM in SODIUM CHLORIDE 0.9% 100 ML IVPB SCH ×3 (02:51→17:30)
[2023-06-06] MEDS: SODIUM CHLORIDE 0.9% 1,000 ML IV SCH (02:52)
[2023-06-06 06:30] LABS: Glucose,Whole Blood 204 mg/dL (70-110)
[2023-06-06] MEDS: MIDODRINE 5 MG TAB PO SCH ×3 (06:41→17:30)
[2023-06-06] MEDS: INSULIN ASPART (NovoLOG) 100 UNIT/ML VIAL SQ SCH ×5 (06:42→21:08)
[2023-06-06] MEDS: HYDROmorphone 1 MG/ML 1 ML SYRINGE IVP PRN ×2 (06:57→11:44)
[2023-06-06] MEDS ORDERED: INSULIN DETEMIR (LEVEMIR) 100 UNIT/ML SYR SQ SCH (07:00)
[2023-06-06 07:38] LABS: African American GFR (CKD) 40 (>60 ml/min/1.73 sqM); Non-African American GFR(CKD) 34 (>60 ml/min/1.73 sqM)
[2023-06-06] MEDS: INSULIN DETEMIR (LEVEMIR) 100 UNIT/ML SYR SQ SCH (08:58)
[2023-06-06] MEDS: DULoxetine HCL 60 MG CAPSULE.DR PO SCH ×2 (09:29→21:08)
[2023-06-06] MEDS: ASPIRIN 81 MG PO SCH (09:30)
[2023-06-06] MEDS: METOPROLOL SUCCINATE (ER) 25 MG TAB.ER.24H PO SCH (09:30)
[2023-06-06] MEDS: ATORVASTATIN 40 MG TAB PO SCH (09:30)
[2023-06-06] MEDS: MORPHINE SULFATE IR 15 MG TABLET PO SCH ×4 (09:30→21:07)
[2023-06-06] MEDS: POTASSIUM CHLORIDE ER 20 MEQ TAB.ER PO SCH (09:30)
[2023-06-06] MEDS: NICOTINE 14MG/24HR PATCH TRANSDERM SCH (09:30)
[2023-06-06] MEDS: CYCLOBENZAPRINE 10 MG TAB PO SCH ×4 (09:30→21:08)
[2023-06-06] MEDS: SPIRONOLACTONE 25 MG TAB PO SCH ×2 (09:30→21:08)
[2023-06-06] MEDS: BUMETANIDE 1 MG TAB PO SCH ×2 (09:31→21:08)
[2023-06-06] MEDS: DAPAGLIFLOZIN PROPANEDIOL 10 MG TABLET PO SCH (09:33)
--- NOTE | 2023-06-06 11:33 | P.CRDCN ---
History of Present Illness History of present illness: HISTORY OF PRESENT ILLNESS: This is a 52-year-old male with a past medical history significant for nonischemic cardiomyopathy, AICD implantation, nonsustained ventricular tachycardia, hypertension, hyperlipidemia, COPD, nicotine dependence, diabetes and right-sided foot diabetic ulcer. Patient follows in the office with Dr. Abbasi. We have been asked to see the patient in consultation for preoperative clearance. Patient examined at the bedside. Patient has been evaluated by vascular surgery with recommendations for right-sided [id number] amputation. At the time of examination, patient states he is declining to proceed with amputation. The patient currently denies any chest pain or pressure. He denies any shortness of breath. Blood pressure 100/70. Heart rate around 100. * EKG reveals sinus mechanism with heart rate of 110. * Chest xray mild cardiomegaly and interstitial density. Correlate for CHF with pulmonary vascular congestion. Interstitial pneumonitis or atypical pneumonia would be an alternative consideration. * Current home cardiac medications include Aldactone 25 mg twice a day, Imdur 30 mg daily, Bumex 2 mg twice a day, atorvastatin 40 mg daily, aspirin 81 mg daily, and Midodrine 5mg BID * Most recent echocardiogram obtained in June 2022 revealed ejection fraction less than 20%, severe pulmonary hypertension, moderate to severe mitral regurgitation, moderate tricuspid regurgitation * Cardiac catheterization history: February 2018 revealing minimal coronary artery disease REVIEW OF SYSTEMS: At the time of my exam: CONSTITUTIONAL: Denies fever or chills. HEENT: Denies blurred vision, vision changes, or eye pain. Denies hemoptysis CARDIOVASCULAR: Denies chest pain. Denies orthopnea. Denies PND. Denies palpitations RESPIRATORY: Denies shortness of breath. GASTROINTESTINAL: Denies abdominal pain. Denies nausea or vomiting. HEMATOLOGIC: Denies bleeding disorders. GENITOURINARY: Denies any blood in urine. SKIN: Denies pruitis. Denies rash. PHYSICAL EXAM: VITAL SIGNS: Reviewed. GENERAL: Well-developed in no acute distress. HEENT: Head is normocephalic. Pupils are equal, round. Sclerae anicteric. Mucous membranes of the mouth are moist. Neck supple. No JVD or thyromegaly LUNGS: Respirations even and unlabored. Lungs essentially clear to auscultation bilaterally. HEART: Regular rate and rhythm. S1 and S2 heard. Systolic murmur noted. ABDOMEN: Soft. Nondistended. Nontender. EXTREMITIES: Normal range of motion. No clubbing or cyanosis. Peripheral pul ses intact. 1+ bilateral lower extremity edema. Fredy wrap noted to right lower extremity. NEUROLOGIC: Awake and alert. Oriented x 3. ASSESSMENT: Right diabetic foot ulcer Recent hospitalization for acute CHF Nonischemic cardiomyopathy History of AICD implantation Chronic heart failure with reduced ejection fraction, currently euvolemic History of nonsustained ventricular tachycardia Hyperlipidemia Diabetes Chronic kidney disease Nicotine dependence History of medication noncompliance Hypotension, maintained on Midodrine outpatient PLAN: Continue current cardiac medications Add metoprolol succinate 12.5 mg daily Continue to monitor blood pressure Unable to tolerate FREDY/ARB secondary to soft blood pressures requiring Midodrine Patient is at intermediate to high risk to undergo surgery from a cardiac standpoint. There are no absolute contraindications for patient to proceed. However at the time of our examination, the patient is refusing to proceed with amputation. Further recommendations pending patient's course Nurse practitioner note has been reviewed by physician. Signing provider agrees with the documented findings, assessment, and plan of care. Past Medical History Past Medical History: Asthma, Coronary Artery Disease (CAD), Chest Pain / Angina, Heart Failure, COPD, Diabetes Mellitus, GERD/Reflux, Hyperlipidemia, Hypertension, Myocardial Infarction ([place]), Pneumonia, Sleep Apnea/CPAP/BIPAP, Supraventricular Tachycardia (SVT) Additional Past Medical History / Comment(s): Ischemic cardiomyopathy, chronic CHF, SVT, IDDM type II, KAMINI with CPAP occasionally used, chronic cervical/back pain, DJD, diabetic foot wounds x 4 months. Last Myocardial Infarction Date:: 12/11/17 History of Any Multi-Drug Resistant Organisms: MRSA Date of last positivie culture/infection: 03/10/20 MDRO Source:: MRSA TOE Past Surgical History: Adenoidectomy, AICD, Back Surgery, Cholecystectomy, EPS, Heart Catheterization, Pacemaker, Tonsillectomy Additional Past Surgical History / Comment(s): 12/10/17 cardiac cath, previous cardiac cath, 09/02/14 AICD/pacer, EGD/colonoscopy, low back surgery with fusion. Past Anesthesia/Blood Transfusion Reactions: Motion Sickness Additional Past Anesthesia/Blood Transfusion Reaction / Comment(s): Pt states he received blood with back surgery without reaction. Type of Cardiac Device: Permanent Pacemaker, AICD Device Placement Date:: 09-02-14 Past Psychological History: ADD/ADHD, Anxiety Additional Psychological History / Comment(s): Pt lives with his old son. There are cats in the home. Pt is very independent. He states he would like a walker d/t his L foot wound. He drives. Pt states he has ADHD. Pt is disabled. He has a glucometer and nebulizer. The patient worked in the past building [employer] and [employer]. Smoking Status: Former smoker Past Alcohol Use History: Occasional Additional Past Alcohol Use History / Comment(s): patient states that he quit smoking 3 weeks ago Past Drug Use History: Marijuana Additional Drug Use History / Comment(s): Occasional marijuana use. - Past Family History Father Additional Family Medical History / Comment(s): Pt has not kept in close contact with his father for many yrs. Father was an alcoholic and pt believes he has from cirrhosis of the liver. Mother History Unknown: Yes Additional Family Medical History / Comment(s): Pt is not in contact with his mother or his father who he has heard had . Medications and Allergies Home Medications Medication Instructions Recorded Confirmed Type Albuterol Inhaler [Ventolin Hfa 2 puff INHALATION RT-QID PRN 07/06/22 06/04/23 History Inhaler] INSULIN LISPRO (humaLOG) [humaLOG] 5 - 10 unit SQ ACHS PRN 07/06/22 06/04/23 History Morphine Sulfate Ir [MSIR] 30 mg PO QID 07/06/22 06/04/23 History DULoxetine HCL [Cymbalta] 60 mg PO BID 11/18/22 06/04/23 History Cyclobenzaprine [Flexeril] 10 mg PO QID 05/14/23 06/04/23 History Zolpidem [Ambien] 10 mg PO HS PRN 05/14/23 06/04/23 History Piperacillin-Tazobactam [Zosyn] 3.375 gm IVPB Q8HR #120 each 05/22/23 06/04/23 Rx Aspirin 81 mg PO DAILY tab 05/29/23 06/04/23 Rx Atorvastatin [Lipitor] 40 mg PO DAILY #30 tab 05/29/23 06/04/23 Rx Bumetanide [BUMEX] 2 mg PO BID #120 tab 05/29/23 06/04/23 Rx Insulin Glargine,Hum.rec.anlog 28 units SQ BID #0 05/29/23 06/04/23 Rx [Toujeo Solostar] Isosorbide Mononitrate ER [Imdur] 30 mg PO DAILY #30 tab 05/29/23 06/04/23 Rx Midodrine [ProAmatine] 5 mg PO AC-TID #100 tab 05/29/23 06/04/23 Rx Nicotine 14Mg/24Hr Patch [Habitrol] 1 patch TRANSDERM DAILY #14 patch 05/29/23 06/04/23 Rx Potassium Chloride ER [K-Dur 20] 20 meq PO DAILY #30 tab 05/29/23 06/04/23 Rx Spironolactone [Aldactone] 25 mg PO BID #60 tab 05/29/23 06/04/23 Rx SILVER sulfADIAZINE CREAM 1 applic TOPICAL BID 06/04/23 06/04/23 History [Silvadene Cream] Allergies Allergy/AdvReac Type Severity Reaction Status Date / Time azithromycin Allergy Anaphylaxis Verified 06/04/23 23:14 gemfibrozil [From Lopid] Allergy Rash/Hives Verified 06/04/23 23:14 Physical Exam Vitals: Vital Signs Temp Pulse Pulse Pulse Resp BP BP 06/06/23 06:58 98.2 F 105 H 18 100/70 06/06/23 01:34 97.6 F 104 H 20 92/56 06/05/23 21:52 100 18 95/62 06/05/23 16:00 97.6 F 104 H 16 104/82 06/05/23 12:45 97.6 F 106 H 18 106/81 Pulse Ox 06/06/23 06:58 98 06/06/23 01:34 97 06/05/23 21:52 97 06/05/23 16:00 96 06/05/23 12:45 98 Intake and Output 06/05/23 06/06/23 06/06/23 22:59 06:59 14:59 Intake Total 250 Output Total 350 Balance -100 Intake: Oral 250 Output: Urine 350 Other: Voiding Method Urinal Urinal Weight 90.718 kg Results 06/05/23 07:29 06/06/23 07:15 Comprehensive Metabolic Panel 06/06/23 Range/Units 07:15 Creatinine 2.13 H (0.66-1.25) mg/dL Current Medications Generic Name Dose Route Start Last Admin Trade Name Freq PRN Reason Stop Dose Admin Albuterol Sulfate 2 puff 06/05/23 09:15 Albuterol Hfa Inhaler INHALATION RT-QID PRN Shortness Of Breath Aspirin 81 mg 06/05/23 09:15 06/06/23 09:30 Aspirin 81 Mg PO 81 mg DAILY LAN Administration Atorvastatin Calcium 40 mg 06/05/23 09:30 06/06/23 09:30 Atorvastatin 40 Mg Tab PO 40 mg DAILY LAN Administration Bumetanide 2 mg 06/05/23 09:30 06/06/23 09:31 Bumetanide 1 Mg Tab PO 2 mg BID LAN Administration Cyclobenzaprine HCl 10 mg 06/05/23 09:30 06/06/23 09:30 Cyclobenzaprine 10 Mg Tab PO 10 mg QID LAN Administration Dapagliflozin 10 mg 06/06/23 09:00 06/06/23 09:33 Dapagliflozin Propanediol 10 Mg Tablet PO 10 mg DAILY LAN Administration Duloxetine HCl 60 mg 06/05/23 09:30 06/06/23 09:29 Duloxetine Hcl 60 Mg Capsule.Dr PO 60 mg BID ALN Administration Hydromorphone HCl 1 mg 06/04/23 23:33 06/06/23 06:57 Hydromorphone 1 Mg/Ml 1 Ml Syringe IVP 1 mg Q4HR PRN Administration Pain Sodium Chloride 1,000 mls @ 20 mls/hr 06/04/23 23:45 06/06/23 02:52 Saline 0.9% IV 20 mls/hr .Q24H LAN Administration Piperacillin Sod/Tazobactam 100 mls @ 25 mls/hr 06/05/23 10:00 06/06/23 09:29 Sod 3.375 gm/ Sodium Chloride IVPB 25 mls/hr Q8H LAN Administration Insulin Aspart 0 unit 06/05/23 12:30 06/06/23 06:42 Insulin Aspart (Novolog) 100 Unit/Ml Vial SQ 4 unit ACHS LAN Administration Protocol Insulin Detemir 28 unit 06/06/23 07:00 06/06/23 06:41 Insulin Detemir (Levemir) 100 Unit/Ml Syr SQ 28 unit DAILY@0700 [facility] Administration Metoprolol Succinate 12.5 mg 06/06/23 09:00 06/06/23 09:30 Metoprolol Succinate (Er) 25 Mg Tab.Er.24h PO 12.5 mg DAILY LAN Administration Midodrine 5 mg 06/05/23 12:30 06/06/23 06:41 Midodrine 5 Mg Tab PO 5 mg AC-TID LAN Administration Morphine Sulfate 30 mg 06/05/23 09:45 06/06/23 09:30 Morphine Sulfate Ir 15 Mg Tablet PO 30 mg QID LAN Administration Nicotine 1 patch 06/05/23 09:30 06/06/23 09:30 Nicotine 14mg/24hr Patch TRANSDERM 1 patch DAILY LAN Administration Potassium Chloride 20 meq 06/05/23 09:30 06/06/23 09:30 Potassium Chloride Er 20 Meq Tab.Er PO 20 meq DAILY LAN Administration Silver Sulfadiazine 1 applic 06/05/23 09:30 06/06/23 09:30 Silver Sulfadiazine 1% Cream 25 Gm Tube TOPICAL 1 applic BID LAN Administration Protocol Spironolactone 25 mg 06/05/23 09:30 06/06/23 09:30 Spironolactone 25 Mg Tab PO 25 mg BID LAN Administration Zolpidem Tartrate 10 mg 06/05/23 09:15 Zolpidem 5 Mg Tab PO HS PRN Insomnia Intake and Output 06/05/23 06/06/23 06/06/23 22:59 06:59 14:59 Intake Total 250 Output Total 350 Balance -100 Intake: Oral 250 Output: Urine 350 Other: Voiding Method Urinal Urinal Weight 90.718 kg 06/05/23 07:29 06/06/23 07:15
[2023-06-06 11:37] LABS: Glucose,Whole Blood 211 mg/dL (70-110)
--- NOTE | 2023-06-06 11:46 | P.PN ---
Subjective Progress Note Date: 06/06/23 Principal diagnosis: Right diabetic foot and osteomyelitis Patient is a 52-year-old male with a past medical history significant for diabetes mellitus patient did have extensive right heel diabetic foot infection with underlying osteomyelitis with a recent admission to the hospital patient is status post debridement and culture positive for Proteus providentia anaerobes and Acinetobacter, patient did get a PICC line and was advised a 6- week course of IV Zosyn, no presenting back to the hospital with weakness unable to sleep and unable to infuse his antibiotics per advise of his home care nurse. On today's evaluation that is 06/06/2023, the patient denies any fever or any chills, the patient is breathing comfortably on room air and no need for supplemental oxygen, the patient denies any chest pain, cough or sputum production, patient denies abdominal pain and no nausea/vomiting and no diarrhea, denies any pain to the right heel wound area Patient did have a creatinine of 2.13 Objective - Vital Signs Vital signs: Vital Signs Temp 98.2 F 06/06/23 06:58 Pulse 105 H 06/06/23 06:58 Resp 18 06/06/23 06:58 BP 100/70 06/06/23 06:58 Pulse Ox 98 06/06/23 06:58 FiO2 Intake & Output 06/05/23 06/06/23 06/06/23 18:59 06:59 18:59 Intake Total 250 Output Total 350 Balance -100 Weight 90.718 kg Intake: Oral 250 Output: Urine 350 Other: Voiding Method Urinal Urinal - Exam GENERAL DESCRIPTION: Middle-age male up in bed in no distress RESPIRATORY SYSTEM: Unlabored breathing , clear to auscultation anteriorly HEART: S1 S2 regular rate and rhythm , ABDOMEN: Soft , no tenderness EXTREMITIES: Right foot wound is currently dressed - Labs CBC & Chem 7: 06/05/23 07:29 06/06/23 07:15 Labs: Abnormal Lab Results - Last 24 Hours (Table) 06/05/23 06/05/23 06/05/23 Range/Units 12:37 16:23 20:30 Creatinine (0.66-1.25) mg/dL POC Glucose (mg/dL) 356 H 247 H 145 H (70-110) mg/dL 11/09/23 11/09/23 11/09/23 Range/Units 06:28 07:15 11:36 Creatinine 2.13 H (0.66-1.25) mg/dL POC Glucose (mg/dL) 204 H 211 H (70-110) mg/dL Microbiology - Last 24 Hours (Table) 06/04/23 23:14 Blood Culture - Preliminary Blood 06/04/23 23:14 Blood Culture - Preliminary Blood Assessment and Plan (1) Chronic ulcer of right foot with fat layer exposed Current Visit: Yes Status: Acute Code(s): L97.512 - NON-PRS CHRONIC ULCER OTH PRT RIGHT FOOT W FAT LAYER EXPOSED SNOMED Code(s): 94771043571880442 (2) Foot osteomyelitis, right Current Visit: Yes Status: Acute Code(s): M86.9 - OSTEOMYELITIS, UNSPECIFIED SNOMED Code(s): 1666074341174949 Plan: 1patient with a chronic nonhealing wound to the right heel area concerning for acute or chronic osteomyelitis culture was positive predominantly with gram- negative pathogen on his last visit patient appears to the hospital generalized not feeling well unable to take care of himself at home and infuses antibiotics 2-patient with renal insufficiency high risk of nephrotoxicity 3-patient benefit from possible amputation with the patient has refused in the past vascular surgery has discussed with the patient again 4-we will keep the patient on Zosyn and monitor his clinical course closely Dictation was produced using [employer] dictation software. please excuse any grammatical, word or spelling errors. Time with Patient: Less than 30
--- NOTE | 2023-06-06 14:26 | P.NPCON ---
History of Present Illness - Reason for Consult acute renal failure - History of Present Illness Patient is a 52-year-old male with history of CHF, cardiomyopathy with EF of 20%, COPD, type 2 diabetes and hypertension. Patient also has a history of underlying chronic kidney disease NKF stage IIIa with previous creatinine at 1.4 mg/dL on 06/03/2023. He has had acute kidney injury during his hospitalization last month with serum creatinine had peaked at 2.9 mg/dL. It was mostly ATN and cardiorenal syndrome. Patient was diuresed with the Bumex drip and subsequently transitioned to oral diuretics and discharged home. He also has underlying chronic right foot diabetic ulcer and was discharged on IV antibiotics via PICC line. He is admitted this time with complaints of pain in his right leg. No fever, nausea vomiting or abdominal pain. Complaining of increased fatigue. Serum creatinine at 2.0 mg/dL and it is 2.1 today. Patient has been voiding well. Blood pressure has been low with systolic in the 90s. Patient is maintained on midodrine and Farxiga. Chest x-ray shows interstitial infiltrates and cardiomegaly. No complaints of cough or shortness of breath. Review of Systems As per HPI Past Medical History Past Medical History: Asthma, Coronary Artery Disease (CAD), Chest Pain / Angina, Heart Failure, COPD, Diabetes Mellitus, GERD/Reflux, Hyperlipidemia, Hypertension, Myocardial Infarction ([place]), Pneumonia, Sleep Apnea/CPAP/BIPAP, Supraventricular Tachycardia (SVT) Additional Past Medical History / Comment(s): Ischemic cardiomyopathy, chronic CHF, SVT, IDDM type II, KAMINI with CPAP occasionally used, chronic cervical/back pain, DJD, diabetic foot wounds x 4 months. Last Myocardial Infarction Date:: 12/11/17 History of Any Multi-Drug Resistant Organisms: MRSA Date of last positivie culture/infection: 03/10/20 MDRO Source:: MRSA TOE Past Surgical History: Adenoidectomy, AICD, Back Surgery, Cholecystectomy, EPS, Heart Catheterization, Pacemaker, Tonsillectomy Additional Past Surgical History / Comment(s): 12/10/17 cardiac cath, previous cardiac cath, 09/02/14 AICD/pacer, EGD/colonoscopy, low back surgery with fusion. Past Anesthesia/Blood Transfusion Reactions: Motion Sickness Additional Past Anesthesia/Blood Transfusion Reaction / Comment(s): Pt states he received blood with back surgery without reaction. Type of Cardiac Device: Permanent Pacemaker, AICD Device Placement Date:: 09-02-14 Past Psychological History: ADD/ADHD, Anxiety Smoking Status: Current every day smoker Past Alcohol Use History: Occasional Past Drug Use History: Marijuana - Past Family History Father Additional Family Medical History / Comment(s): Pt has not kept in close contact with his father for many yrs. Father was an alcoholic and pt believes he has from cirrhosis of the liver. Mother History Unknown: Yes Additional Family Medical History / Comment(s): Pt is not in contact with his mother or his father who he has heard had . Medications and Allergies Home Medications Medication Instructions Recorded Confirmed Type Albuterol Inhaler [Ventolin Hfa 2 puff INHALATION RT-QID PRN 07/06/22 06/04/23 History Inhaler] INSULIN LISPRO (humaLOG) [humaLOG] 5 - 10 unit SQ ACHS PRN 07/06/22 06/04/23 History Morphine Sulfate Ir [MSIR] 30 mg PO QID 07/06/22 06/04/23 History DULoxetine HCL [Cymbalta] 60 mg PO BID 11/18/22 06/04/23 History Cyclobenzaprine [Flexeril] 10 mg PO QID 05/14/23 06/04/23 History Zolpidem [Ambien] 10 mg PO HS PRN 05/14/23 06/04/23 History Piperacillin-Tazobactam [Zosyn] 3.375 gm IVPB Q8HR #120 each 05/22/23 06/04/23 Rx Aspirin 81 mg PO DAILY tab 05/29/23 06/04/23 Rx Atorvastatin [Lipitor] 40 mg PO DAILY #30 tab 05/29/23 06/04/23 Rx Bumetanide [BUMEX] 2 mg PO BID #120 tab 05/29/23 06/04/23 Rx Insulin Glargine,Hum.rec.anlog 28 units SQ BID #0 05/29/23 06/04/23 Rx [Toujeo Solostar] Isosorbide Mononitrate ER [Imdur] 30 mg PO DAILY #30 tab 05/29/23 06/04/23 Rx Midodrine [ProAmatine] 5 mg PO AC-TID #100 tab 05/29/23 06/04/23 Rx Nicotine 14Mg/24Hr Patch [Habitrol] 1 patch TRANSDERM DAILY #14 patch 05/29/23 06/04/23 Rx Potassium Chloride ER [K-Dur 20] 20 meq PO DAILY #30 tab 05/29/23 06/04/23 Rx Spironolactone [Aldactone] 25 mg PO BID #60 tab 05/29/23 06/04/23 Rx SILVER sulfADIAZINE CREAM 1 applic TOPICAL BID 06/04/23 06/04/23 History [Silvadene Cream] Allergies Allergy/AdvReac Type Severity Reaction Status Date / Time azithromycin Allergy Anaphylaxis Verified 06/04/23 23:14 gemfibrozil [From Lopid] Allergy Rash/Hives Verified 06/04/23 23:14 Physical Exam Vitals: Vital Signs Temp Pulse Pulse Pulse Resp BP BP 06/06/23 13:15 106/72 06/06/23 06:58 98.2 F 105 H 18 100/70 06/06/23 01:34 97.6 F 104 H 20 92/56 06/05/23 21:52 100 18 95/62 06/05/23 16:00 97.6 F 104 H 16 104/82 Pulse Ox 06/06/23 13:15 06/06/23 06:58 98 06/06/23 01:34 97 06/05/23 21:52 97 06/05/23 16:00 96 Intake and Output 06/05/23 06/06/23 06/06/23 22:59 06:59 14:59 Intake Total 250 Output Total 350 Balance -100 Intake: Oral 250 Output: Urine 350 Other: Voiding Method Urinal Urinal Weight 90.718 kg Patient is awake, comfortable, in no acute distress Examination of the heart S1 and S2 Examination of the lungs bilateral breath sounds are heard Abdomen is soft nontender Examination of lower extremities shows right foot is wrapped, 2+ edema noted bilaterally CATALOG LIBRARIAN exam grossly intact Results - Lab Results Most recent lab results Calcium 9.1 mg/dL (8.4-10.2) 06/05/23 07:29 Phosphorus 3.2 mg/dL (2.5-4.5) 06/04/23 23:14 Magnesium 2.0 mg/dL (1.6-2.3) 06/04/23 23:14 06/05/23 07:29 06/06/23 07:15 Assessment and Plan Assessment: 1. Acute kidney injury, nonoliguric, ATN and cardiorenal syndrome. Patient remains with volume overload therefore I will continue with current dose of diuretics. We can increase the midodrine to 10 mg 3 times a day as blood pressure remains low. No nephrotoxic agents identified. Continue with farxiga. No obstruction noted on ultrasound done on 05/16/2023. UA is benign 2. Chronic systolic CHF with EF of less than 20% with moderate to severe mitral regurgitation, moderate tricuspid regurg and severe pulmonary hypertension. Status post AICD 3. Right foot ulcer maintained on IV antibiotics. Amputation has been discussed previously by vascular surgery. 4. Hypervolemic hyponatremia, improved Plan: Continue with current dose of Bumex Continue with farxiga Increase midodrine Maintain fluid restriction Repeat labs in a.m. Continue with antibiotics as per ID Thank you for the consultation. We will continue to follow the patient with you during his hospitalization.
--- NOTE | 2023-06-06 16:58 | P.PN ---
Progress Note - Text 52-year-old gentleman patient came to the emergency room with multiple medical issues patient has a chronic wound right foot involving the calcaneus plantar aspect of the foot patient has history of CHF his ejection fraction is 20% Eschen is under care of infectious disease local wound care and IV sedation this point patient is refusing any major surgical intervention
[2023-06-06] MEDS: diphenhydrAMINE 25 MG CAP PO PRN ×2 (17:06→21:48)
[2023-06-06 17:25] LABS: Glucose,Whole Blood 233 mg/dL (70-110)
--- NOTE | 2023-06-06 18:19 | P.PN ---
Progress Note - Text Progress Note Date: 06/06/23 Chief Complaint: foot abscess This is a 52-year-old patient, follows with Dr. Rodríguez. Chronic stable medical condition include CHF EF less than 20%, COPD, diabetes mellitus type 2, hypertension, hyperlipidemia, obstructive sleep apnea, anxiety, AICD, lower extremity venous insufficiency. Patient had lower extremity wounds and has been followed by ID and Dr. Lugo from vascular. Patient recently in the hospital from May 14 through May 29. Patient had worsening wound after right foot. She has been told multiple times to Dr. Lugo to proceed with amputation. Last admission he also was on IV Bumex drip and dobutamine drip for congestive heart failure. Was discharged home on antibiotics. Patient now presents here to again with worsening wound. malodorous drainage. Denies fever and chills. Tired. June 06: Patient is now reluctant to proceed for surgery. He knows that he needs it but is just not ready. I did explain to him that antibiotics will not help at all. This was discussed with also ID. Also yesterday evening with the vascular surgery Dr. Lugo. Eating well. Active Medications Albuterol Sulfate (Albuterol Hfa Inhaler) 2 puff INHALATION RT-QID PRN PRN Reason: Shortness Of Breath Aspirin (Aspirin 81 Mg) 81 mg PO DAILY [facility] Last Admin: 06/06/23 09:30 Dose: 81 mg Atorvastatin Calcium (Atorvastatin 40 Mg Tab) 40 mg PO DAILY [facility] Last Admin: 06/06/23 09:30 Dose: 40 mg Bumetanide (Bumetanide 1 Mg Tab) 2 mg PO BID [facility] Last Admin: 06/06/23 09:31 Dose: 2 mg Cyclobenzaprine HCl (Cyclobenzaprine 10 Mg Tab) 10 mg PO QID [facility] Last Admin: 06/06/23 17:29 Dose: 10 mg Dapagliflozin (Dapagliflozin Propanediol 10 Mg Tablet) 10 mg PO DAILY [facility] Last Admin: 06/06/23 09:33 Dose: 10 mg Diphenhydramine HCl (Diphenhydramine 25 Mg Cap) 25 mg PO QID PRN PRN Reason: Itching Last Admin: 06/06/23 17:06 Dose: 25 mg Duloxetine HCl (Duloxetine Hcl 60 Mg Capsule.) 60 mg PO BID [facility] Last Admin: 06/06/23 09:29 Dose: 60 mg Hydromorphone HCl (Hydromorphone 1 Mg/Ml 1 Ml Syringe) 1 mg IVP Q4HR PRN PRN Reason: Pain Last Admin: 06/06/23 11:44 Dose: 1 mg Sodium Chloride (Saline 0.9%) 1,000 mls @ 20 mls/hr IV .Q24H [facility] Last Admin: 06/06/23 02:52 Dose: 20 mls/hr Piperacillin Sod/Tazobactam (Sod 3.375 gm/ Sodium Chloride) 100 mls @ 25 mls/hr IVPB Q8H [facility] Last Admin: 06/06/23 17:30 Dose: 25 mls/hr Insulin Aspart (Insulin Aspart (Novolog) 100 Unit/Ml Vial) 0 unit SQ ACHS [facility]; Protocol Last Admin: 06/06/23 17:30 Dose: 4 unit Insulin Detemir (Insulin Detemir (Levemir) 100 Unit/Ml Syr) 28 unit SQ DAILY@0700 [facility] Last Admin: 06/06/23 06:41 Dose: 28 unit Metoprolol Succinate (Metoprolol Succinate (Er) 25 Mg Tab.Er.24h) 12.5 mg PO DAILY [facility] Last Admin: 06/06/23 09:30 Dose: 12.5 mg Midodrine (Midodrine 5 Mg Tab) 5 mg PO AC-TID [facility] Last Admin: 06/06/23 17:30 Dose: 5 mg Morphine Sulfate (Morphine Sulfate Ir 15 Mg Tablet) 30 mg PO QID [facility] Last Admin: 06/06/23 17:29 Dose: 30 mg Nicotine (Nicotine 14mg/24hr Patch) 1 patch TRANSDERM DAILY [facility] Last Admin: 06/06/23 09:30 Dose: 1 patch Potassium Chloride (Potassium Chloride Er 20 Meq Tab.Er) 20 meq PO DAILY [facility] Last Admin: 06/06/23 09:30 Dose: 20 meq Silver Sulfadiazine (Silver Sulfadiazine 1% Cream 25 Gm Tube) 1 applic TOPICAL BID [facility]; Protocol Last Admin: 06/06/23 09:30 Dose: 1 applic Spironolactone (Spironolactone 25 Mg Tab) 25 mg PO BID [facility] Last Admin: 06/06/23 09:30 Dose: 25 mg Zolpidem Tartrate (Zolpidem 5 Mg Tab) 10 mg PO HS PRN PRN Reason: Insomnia Social history: Lives with his 20-year-old son. Disabled. 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 Smoking 2 packs a day for most of his life . Stop drinking heavy alcohol about 20 years ago. Has done marijuana. Physical examination: VITAL SIGNS: 97.8, 94, 18, 101/68, 99% room air GENERAL: Sitting edge of the bed, comfortable EYES: Pupils equal. Conjunctiva normal. HEENT: External appearance of nose and ears normal, oral cavity grossly normal. NECK: JVD unable to assess; masses not palpable. HEART: First and second heart sounds are normal; edema present. LUNGS: Respiratory rate normal; diminished breath sounds ABDOMEN: Soft, nontender, liver spleen not palpable, no masses palpable. PSYCH: Alert and oriented x3; mood and affect anxious. NEUROLOGICAL: Cranial nerves grossly intact. No facial asymmetry DERMATOLOGICAL: Right foot wound. Details in nursing notes. INVESTIGATIONS, reviewed in the clinical context: June 05: White count 10.8 hemoglobin 11.6 platelets 218 sodium 129 potassium 4.0 BUN 82 creatinine 2.03 June 04: White count 14 hemoglobin 11.9 platelets 226 sodium 127 potassium 4.3 BUN 93 creatinine 1.78 EKG tracing personally reviewed by me-sinus tachycardia. Nonspecific ST-T wave changes. Right foot x-ray: No acute fracture dislocation. Osteotomy of the fifth metatarsal and mid diaphysis. Previous labs from last admission May 28: Potassium 3.9 and 116 creatinine 2.60 Wound culture: Proteus vulgaris. Streptococcus agalactiae group B Assessment and plan: -Acute on chronic recurrent right lower leg cellulitis, infected right heel diabetic ulcer with prior history of debridement. Has been told for amputation before. Not improving Wound swab for Gram stain and culture. Proteus vulgaris, Streptococcus agalactiae group B from last admission IV Zosyn is received from last admission.-Continued Patient has not healed with antibiotics and debridement alone. Does need amputation as discussed previously with Dr. Lugo. This was reinforced at length with the patient. Today, patient accepts that he needs to amputation but not ready for the same. -chronic congestive heart failure nonischemic cardiomyopathy systolic dysfunction EF less than 20%: Stabilized Bumex 2 mg twice a day. Aldactone 25 mg twice a day AICD. Fluid restriction Being followed by cardiology and nephrology - COPD in a previous smoker Ventolin. -Diabetes mellitus type 2 chronically on insulin, uncontrolled with hyperglycemia Increase Levemir 35 units subcu daily . Diabetic diet. Accu-Cheks and sliding scale Add NovoLog 6 units before meals 3 times a day -Hyperlipidemia Lipitor -Chronic kidney disease stage III from diabetic nephropathy and nephrosclerosis Baseline creatinine of 1.2 on May 14. -Acute kidney injury likely ATN from cardiorenal syndrome : Some worsening Follow renal function. Nephrology consulted -Hyponatremia Fluid restriction -Essential hypertension -Obstructive sleep apnea sometimes uses CPAP machine -Diabetic peripheral neuropathy -Anxiety Ativan when necessary -DJD Tylenol when necessary -AICD -Lower extremity chronic venous insufficiency -Full code Patient is a moderate to high risk for surgery. With no medical cardiac indications for right foot amputation. Present time patient not ready for surgery.
[2023-06-06 18:49] LABS: Glucose,Whole Blood 232 mg/dL (70-110)
[2023-06-06 20:46] LABS: Glucose,Whole Blood 170 mg/dL (70-110)
[2023-06-07] MEDS: PIPERACILLIN-TAZOBACTAM 3.375 GM in SODIUM CHLORIDE 0.9% 100 ML IVPB SCH ×3 (01:35→17:44)
[2023-06-07] MEDS: SODIUM CHLORIDE 0.9% 1,000 ML IV SCH ×2 (02:46→16:14)
[2023-06-07 05:36] LABS: Glucose,Whole Blood 99 mg/dL (70-110)
[2023-06-07] MEDS: diphenhydrAMINE 25 MG CAP PO PRN (06:09)
[2023-06-07] MEDS: INSULIN ASPART (NovoLOG) 100 UNIT/ML VIAL SQ SCH ×8 (06:49→22:26)
[2023-06-07] MEDS: INSULIN DETEMIR (LEVEMIR) 100 UNIT/ML SYR SQ SCH (06:49)
[2023-06-07] MEDS: MIDODRINE 5 MG TAB PO SCH ×3 (06:50→17:44)
[2023-06-07 06:59] LABS: African American GFR (CKD) 37 (>60 ml/min/1.73 sqM); Non-African American GFR(CKD) 32 (>60 ml/min/1.73 sqM)
[2023-06-07] MEDS: ASPIRIN 81 MG PO SCH (08:32)
[2023-06-07] MEDS: POTASSIUM CHLORIDE ER 20 MEQ TAB.ER PO SCH (08:32)
[2023-06-07] MEDS: NICOTINE 14MG/24HR PATCH TRANSDERM SCH (08:32)
[2023-06-07] MEDS: SPIRONOLACTONE 25 MG TAB PO SCH ×2 (08:32→08:57)
[2023-06-07] MEDS: METOPROLOL SUCCINATE (ER) 25 MG TAB.ER.24H PO SCH ×2 (08:33→08:57)
[2023-06-07] MEDS: CYCLOBENZAPRINE 10 MG TAB PO SCH ×4 (08:33→22:24)
[2023-06-07] MEDS: BUMETANIDE 1 MG TAB PO SCH ×2 (08:33→22:24)
[2023-06-07] MEDS: DULoxetine HCL 60 MG CAPSULE.DR PO SCH ×2 (08:33→22:24)
[2023-06-07] MEDS: DAPAGLIFLOZIN PROPANEDIOL 10 MG TABLET PO SCH (08:33)
[2023-06-07] MEDS: ATORVASTATIN 40 MG TAB PO SCH (08:35)
[2023-06-07] MEDS: MORPHINE SULFATE IR 15 MG TABLET PO SCH ×4 (08:49→22:24)
[2023-06-07] MEDS: HYDROmorphone 1 MG/ML 1 ML SYRINGE IVP PRN (10:23)
--- NOTE | 2023-06-07 10:36 | P.PN ---
Subjective HISTORY OF PRESENT ILLNESS: This is a 52-year-old male with a past medical history significant for nonischemic cardiomyopathy, AICD implantation, nonsustained ventricular tachycardia, hypertension, hyperlipidemia, COPD, nicotine dependence, diabetes and right-sided foot diabetic ulcer. Patient follows in the office with Dr. Abbasi. We have been asked to see the patient in consultation for preoperative clearance. Patient examined at the bedside. Patient has been evaluated by vascular surgery with recommendations for right-sided [id number] amputation. At the time of examination, patient states he is declining to proceed with amputation. The patient currently denies any chest pain or pressure. He denies any shortness of breath. Blood pressure 100/70. Heart rate around 100. * EKG reveals sinus mechanism with heart rate of 110. * Chest xray mild cardiomegaly and interstitial density. Correlate for CHF with pulmonary vascular congestion. Interstitial pneumonitis or atypical pneumonia would be an alternative consideration. * Current home cardiac medications include Aldactone 25 mg twice a day, Imdur 30 mg daily, Bumex 2 mg twice a day, atorvastatin 40 mg daily, aspirin 81 mg daily, and Midodrine 5mg BID * Most recent echocardiogram obtained in June 2022 revealed ejection fraction less than 20%, severe pulmonary hypertension, moderate to severe mitral regurgitation, moderate tricuspid regurgitation * Cardiac catheterization history: February 2018 revealing minimal coronary artery disease 06/08/2023 Patient examined this morning at the bedside. Patient denies chest pain or p ressure. He denies shortness of breath. He states the pain in his right foot has improved compared to yesterday. He is still declining to proceed with amputation. Patient's blood pressure is improved today with a reading of 122/72. PHYSICAL EXAM: VITAL SIGNS: Reviewed. GENERAL: Well-developed in no acute distress. HEENT: Head is normocephalic. Pupils are equal, round. Sclerae anicteric. Mucous membranes of the mouth are moist. Neck supple. No JVD or thyromegaly LUNGS: Respirations even and unlabored. Lungs essentially clear to auscultation bilaterally. HEART: Regular rate and rhythm. S1 and S2 heard. Systolic murmur noted. ABDOMEN: Soft. Nondistended. Nontender. EXTREMITIES: Normal range of motion. No clubbing or cyanosis. Peripheral pulses intact. 1+ bilateral lower extremity edema. Fredy wrap noted to right lower extremity. NEUROLOGIC: Awake and alert. Oriented x 3. ASSESSMENT: Right diabetic foot ulcer Recent hospitalization for acute CHF Nonischemic cardiomyopathy History of AICD implantation Chronic heart failure with reduced ejection fraction, currently euvolemic History of nonsustained ventricular tachycardia Hyperlipidemia Diabetes Chronic kidney disease Nicotine dependence History of medication noncompliance Hypotension, maintained on Midodrine outpatient PLAN: Continue current cardiac medications Increase metoprolol succinate 25 mg daily Decrease Aldactone to once daily instead of twice a day dosing Continue to monitor blood pressure Unable to tolerate FREDY/ARB secondary to soft blood pressures requiring Midodrine Patient is at intermediate to high risk to undergo surgery from a cardiac standpoint. There are no absolute contraindications for patient to proceed. However at the time of our examination, the patient is refusing to proceed with amputation. Further recommendations pending patient's course Nurse practitioner note has been reviewed by physician. Signing provider agrees with the documented findings, assessment, and plan of care. Objective - Vital Signs Vital signs: Vital Signs Temp 98.3 F 06/07/23 08:00 Pulse 109 H 06/07/23 10:04 Resp 16 06/07/23 01:24 BP 122/72 06/07/23 08:00 Pulse Ox 96 06/07/23 08:00 FiO2 Intake & Output 06/06/23 06/07/23 06/07/23 18:59 06:59 18:59 Output Total 200 Balance -200 Output: Urine 200 Other: Voiding Method Toilet Toilet Toilet Urinal Urinal # Voids 1 - Labs CBC & Chem 7: 06/05/23 07:29 06/07/23 05:43 Labs: Abnormal Lab Results - Last 24 Hours (Table) 06/06/23 06/06/23 06/06/23 Range/Units 11:36 17:24 18:47 Creatinine (0.66-1.25) mg/dL POC Glucose (mg/dL) 211 H 233 H 232 H (70-110) mg/dL 06/06/23 06/07/23 Range/Units 20:44 05:43 Creatinine 2.27 H (0.66-1.25) mg/dL POC Glucose (mg/dL) 170 H (70-110) mg/dL Microbiology - Last 24 Hours (Table) 06/04/23 23:14 Blood Culture - Preliminary Blood 06/04/23 23:14 Blood Culture - Preliminary Blood
[2023-06-07 11:20] LABS: Glucose,Whole Blood 173 mg/dL (70-110)
--- NOTE | 2023-06-07 12:10 | P.PN ---
Subjective Progress Note Date: 06/07/23 Principal diagnosis: Right diabetic foot and osteomyelitis Patient is a 52-year-old male with a past medical history significant for diabetes mellitus patient did have extensive right heel diabetic foot infection with underlying osteomyelitis with a recent admission to the hospital patient is status post debridement and culture positive for Proteus providentia anaerobes and Acinetobacter, patient did get a PICC line and was advised a 6- week course of IV Zosyn, patient now presenting back to the hospital with weakness unable to sleep and unable to infuse his antibiotics per advise of his home care nurse. On today's evaluation that is 06/07/2023, the patient remains to be afebrile, the patient is breathing comfortably on room air , the patient denies any chest pain or any cough , patient denies nausea/vomiting diarrhea and no abdominal pain, the patient denies any pain to the right heel wound area Patient did have a creatinine is 2.27 today Objective - Vital Signs Vital signs: Vital Signs Temp 98.3 F 06/07/23 08:00 Pulse 109 H 06/07/23 10:04 Resp 16 06/07/23 01:24 BP 122/72 06/07/23 08:00 Pulse Ox 96 06/07/23 08:00 FiO2 Intake & Output 06/06/23 06/07/23 06/07/23 18:59 06:59 18:59 Output Total 200 Balance -200 Output: Urine 200 Other: Voiding Method Toilet Toilet Toilet Urinal Urinal # Voids 1 - Exam GENERAL DESCRIPTION: Middle-age male up in bed in no distress RESPIRATORY SYSTEM: Unlabored breathing , clear to auscultation anteriorly HEART: S1 S2 regular rate and rhythm , ABDOMEN: Soft , no tenderness EXTREMITIES: Right foot wound is currently dressed - Labs CBC & Chem 7: 06/05/23 07:29 06/07/23 05:43 Labs: Abnormal Lab Results - Last 24 Hours (Table) 06/06/23 06/06/23 06/06/23 Range/Units 17:24 18:47 20:44 Creatinine (0.66-1.25) mg/dL POC Glucose (mg/dL) 233 H 232 H 170 H (70-110) mg/dL 06/07/23 06/07/23 Range/Units 05:43 11:19 Creatinine 2.27 H (0.66-1.25) mg/dL POC Glucose (mg/dL) 173 H (70-110) mg/dL Microbiology - Last 24 Hours (Table) 06/04/23 23:14 Blood Culture - Preliminary Blood 06/04/23 23:14 Blood Culture - Preliminary Blood Assessment and Plan (1) Chronic ulcer of right foot with fat layer exposed Current Visit: Yes Status: Acute Code(s): L97.512 - NON-PRS CHRONIC ULCER OTH PRT RIGHT FOOT W FAT LAYER EXPOSED SNOMED Code(s): 09833663691316571 (2) Foot osteomyelitis, right Current Visit: Yes Status: Acute Code(s): M86.9 - OSTEOMYELITIS, UNSPECIFIED SNOMED Code(s): 2058908498185518 Plan: 1patient with a chronic nonhealing wound to the right heel area concerning for acute on chronic osteomyelitis culture was positive predominantly with gram- negative pathogen on his last visit , including Proteus Providencia Acinetobacter strep and anaerobes, patient presented back to the hospital with generalized not feeling well unable to take care of himself at home and infuses antibiotics 2-patient with renal insufficiency high risk of nephrotoxicity 3-patient has refused amputation even though the chances of healing of this wound on the are on lower side, because of extensive wound and noncompliance 4-patient to Zosyn and monitor his clinical course closely Dictation was produced using [employer] dictation software. please excuse any grammatical, word or spelling errors. Time with Patient: Less than 30
[2023-06-07 13:18] VITALS: BMI 28.7
--- NOTE | 2023-06-07 16:19 | P.PN ---
Progress Note - Text Progress Note Date: 06/07/23 Chief Complaint: foot abscess This is a 52-year-old patient, follows with Dr. Rodríguez. Chronic stable medical condition include CHF EF less than 20%, COPD, diabetes mellitus type 2, hypertension, hyperlipidemia, obstructive sleep apnea, anxiety, AICD, lower extremity venous insufficiency. Patient had lower extremity wounds and has been followed by ID and Dr. Lugo from vascular. Patient recently in the hospital from May 14 through May 29. Patient had worsening wound after right foot. She has been told multiple times to Dr. Lugo to proceed with amputation. Last admission he also was on IV Bumex drip and dobutamine drip for congestive heart failure. Was discharged home on antibiotics. Patient now presents here to again with worsening wound. malodorous drainage. Denies fever and chills. Tired. June 06: Patient is now reluctant to proceed for surgery. He knows that he needs it but is just not ready. I did explain to him that antibiotics will not help at all. This was discussed with also ID. Also yesterday evening with the vascular surgery Dr. Lugo. Eating well. June 07: On IV Zosyn. Some bump in creatinine. Being followed by nephrology. Patient does not want to go to rehab anymore. Wants to go home. Discussed with ID. Patient be discharged and Zosyn. Active Medications Albuterol Sulfate (Albuterol Hfa Inhaler) 2 puff INHALATION RT-QID PRN PRN Reason: Shortness Of Breath Aspirin (Aspirin 81 Mg) 81 mg PO DAILY [facility] Last Admin: 06/07/23 08:32 Dose: 81 mg Atorvastatin Calcium (Atorvastatin 40 Mg Tab) 40 mg PO DAILY [facility] Last Admin: 06/07/23 08:35 Dose: 40 mg Bumetanide (Bumetanide 1 Mg Tab) 2 mg PO BID [facility] Last Admin: 06/07/23 08:33 Dose: 2 mg Cyclobenzaprine HCl (Cyclobenzaprine 10 Mg Tab) 10 mg PO QID [facility] Last Admin: 06/07/23 12:44 Dose: 10 mg Dapagliflozin (Dapagliflozin Propanediol 10 Mg Tablet) 10 mg PO DAILY [facility] Last Admin: 06/07/23 08:33 Dose: 10 mg Diphenhydramine HCl (Diphenhydramine 25 Mg Cap) 25 mg PO QID PRN PRN Reason: Itching Last Admin: 06/07/23 06:09 Dose: 25 mg Duloxetine HCl (Duloxetine Hcl 60 Mg Capsule.Dr) 60 mg PO BID [facility] Last Admin: 06/07/23 08:33 Dose: 60 mg Hydromorphone HCl (Hydromorphone 1 Mg/Ml 1 Ml Syringe) 1 mg IVP Q4HR PRN PRN Reason: Pain Last Admin: 06/07/23 10:23 Dose: 1 mg Piperacillin Sod/Tazobactam (Sod 3.375 gm/ Sodium Chloride) 100 mls @ 25 mls/hr IVPB Q8H [facility] Last Admin: 06/07/23 10:24 Dose: 25 mls/hr Sodium Chloride (Saline 0.9%) 1,000 mls @ 10 mls/hr IV .Q24H [facility] Last Admin: 06/07/23 16:14 Dose: Not Given Insulin Aspart (Insulin Aspart (Novolog) 100 Unit/Ml Vial) 0 unit SQ ACHS [facility]; Protocol Last Admin: 06/07/23 12:46 Dose: 2 unit Insulin Aspart (Insulin Aspart (Novolog) 100 Unit/Ml Vial) 6 unit SQ AC-TID [facility] Last Admin: 06/07/23 12:46 Dose: 6 unit Insulin Detemir (Insulin Detemir (Levemir) 100 Unit/Ml Syr) 35 unit SQ DAILY@0700 [facility] Last Admin: 06/07/23 06:49 Dose: 35 unit Metoprolol Succinate (Metoprolol Succinate (Er) 25 Mg Tab.Er.24h) 25 mg PO ERASMO LY [facility] Last Admin: 06/07/23 08:57 Dose: 25 mg Midodrine (Midodrine 5 Mg Tab) 5 mg PO AC-TID [facility] Last Admin: 06/07/23 12:44 Dose: 5 mg Morphine Sulfate (Morphine Sulfate Ir 15 Mg Tablet) 30 mg PO QID [facility] Last Admin: 06/07/23 12:43 Dose: 30 mg Nicotine (Nicotine 14mg/24hr Patch) 1 patch TRANSDERM DAILY [facility] Last Admin: 06/07/23 08:32 Dose: Not Given Potassium Chloride (Potassium Chloride Er 20 Meq Tab.Er) 20 meq PO DAILY [facility] Last Admin: 06/07/23 08:32 Dose: 20 meq Silver Sulfadiazine (Silver Sulfadiazine 1% Cream 25 Gm Tube) 1 applic TOPICAL BID [facility]; Protocol Last Admin: 06/07/23 16:13 Dose: 1 applic Spironolactone (Spironolactone 25 Mg Tab) 25 mg PO DAILY [facility] Last Admin: 06/07/23 08:57 Dose: 25 mg Zolpidem Tartrate (Zolpidem 5 Mg Tab) 10 mg PO HS PRN PRN Reason: Insomnia Social history: Lives with his 20-year-old son. Disabled. 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 Smoking 2 packs a day for most of his life . Stop drinking heavy alcohol about 20 years ago. Has done marijuana. Physical examination: VITAL SIGNS: 98.3, 94, 16, 93 was 62, 95% room air GENERAL: Sitting edge of the bed, comfortable EYES: Pupils equal. Conjunctiva normal. HEENT: External appearance of nose and ears normal, oral cavity grossly normal. NECK: JVD unable to assess; masses not palpable. HEART: First and second heart sounds are normal; some edema LUNGS: Respiratory rate normal; diminished breath sounds ABDOMEN: Soft, nontender, liver spleen not palpable, no masses palpable. PSYCH: Alert and oriented x3; mood and affect anxious. NEUROLOGICAL: Cranial nerves grossly intact. No facial asymmetry DERMATOLOGICAL: Right foot wound. Details in nursing notes. INVESTIGATIONS, reviewed in the clinical context: June 07: Creatinine 2.27 June 05: White count 10.8 hemoglobin 11.6 platelets 218 sodium 129 potassium 4.0 BUN 82 creatinine 2.03 June 04: White count 14 hemoglobin 11.9 platelets 226 sodium 127 potassium 4.3 BUN 93 creatinine 1.78 EKG tracing personally reviewed by me-sinus tachycardia. Nonspecific ST-T wave changes. Right foot x-ray: No acute fracture dislocation. Osteotomy of the fifth metatarsal and mid diaphysis. Previous labs from last admission May 28: Potassium 3.9 and 116 creatinine 2.60 Wound culture: Proteus vulgaris. Streptococcus agalactiae group B Assessment and plan: -Acute on chronic recurrent right lower leg cellulitis, infected right heel diabetic ulcer with prior history of debridement. Has been told for amputation before. Not improving Wound swab for Gram stain and culture. Proteus vulgaris, Streptococcus agalactiae group B from last admission IV Zosyn is received from last admission.-Continued Patient has not healed with antibiotics and debridement alone. Does need amputation as discussed previously with Dr. Lugo. This was reinforced at length with the patient. patient accepts that he needs to amputation but not ready for the same. -chronic congestive heart failure nonischemic cardiomyopathy systolic dysfunction EF less than 20%: Stabilized Bumex 2 mg twice a day. Aldactone 25 mg twice a day AICD. Fluid restriction Being followed by cardiology and nephrology - COPD in a previous smoker Ventolin. -Diabetes mellitus type 2 chronically on insulin, uncontrolled with hyperglycemia Levemir 35 units subcu daily . Diabetic diet. Accu-Cheks and sliding scale NovoLog 6 units before meals 3 times a day -Hyperlipidemia Lipitor -Chronic kidney disease stage III from diabetic nephropathy and nephrosclerosis Baseline creatinine of 1.2 on May 14. -Acute kidney injury likely ATN from cardiorenal syndrome : Some worsening Follow renal function. Nephrology following -Hyponatremia Fluid restriction -Essential hypertension -Obstructive sleep apnea sometimes uses CPAP machine -Diabetic peripheral neuropathy -Anxiety Ativan when necessary -DJD Tylenol when necessary -AICD -Lower extremity chronic venous insufficiency -Full code Continue current medication treatment plan. Went creatinine stabilizes that patient may be discharged. Prognosis guarded
[2023-06-07 17:20] LABS: Glucose,Whole Blood 142 mg/dL (70-110)
[2023-06-07 19:59] LABS: Glucose,Whole Blood 75 mg/dL (70-110)
--- NOTE | 2023-06-07 20:58 | P.PN ---
Subjective Patient is seen for f/u for ANGY on CKD. No complaints. Good UOP. Maintained on oral Bumex BP remains low with SBP low 90s Objective - Vital Signs Vital signs: Vital Signs Temp 98.4 F 06/07/23 18:55 Pulse 94 06/07/23 19:59 Resp 18 06/07/23 19:59 BP 96/64 06/07/23 18:55 Pulse Ox 94 L 06/07/23 18:55 FiO2 Intake & Output 06/07/23 06/07/23 06/08/23 06:59 18:59 06:59 Intake Total 180 1220 Output Total 200 1 Balance -20 1219 Weight 90.718 kg Intake: Intake, IV Titration 260 Amount Piperacillin-Tazobactam 3 200 .375 gm In Sodium Chloride 0.9% 100 ml @ 25 mls/hr IVPB Q8H [facility] Rx#: [id number] Sodium Chloride 0.9% 1, 60 000 ml @ 10 mls/hr IV . 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 Acute kidney injury, nonoliguric, ATN and cardiorenal syndrome. Patient remains with volume overload therefore I will continue with current dose of diuretics. We can increase the midodrine to 10 mg 3 times a day as blood pressure remains low. No nephrotoxic agents identified. Continue with farxiga. No obstruction noted on ultrasound done on 05/16/2023. UA is benign 2. Chronic systolic CHF with EF of less than 20% with moderate to severe mitral regurgitation, moderate tricuspid regurg and severe pulmonary hypertension. Status post AICD 3. Right foot ulcer maintained on IV antibiotics. Amputation has been discussed previously by vascular surgery. 4. Hypervolemic hyponatremia, improved Plan: Continue with current dose of Bumex Continue with farxiga Increase midodrine Maintain fluid restriction Repeat labs in a.m. Continue with antibiotics as per ID
[2023-06-07 22:25] LABS: Glucose,Whole Blood 114 mg/dL (70-110)
[2023-06-08] MEDS: PIPERACILLIN-TAZOBACTAM 3.375 GM in SODIUM CHLORIDE 0.9% 100 ML IVPB SCH ×3 (01:35→18:03)
[2023-06-08 06:11] LABS: Glucose,Whole Blood 171 mg/dL (70-110)
[2023-06-08] MEDS: INSULIN ASPART (NovoLOG) 100 UNIT/ML VIAL SQ SCH ×6 (06:39→21:54)
[2023-06-08] MEDS: INSULIN DETEMIR (LEVEMIR) 100 UNIT/ML SYR SQ SCH (06:39)
[2023-06-08] MEDS: MIDODRINE 5 MG TAB PO SCH ×3 (06:40→18:02)
[2023-06-08 07:27] LABS: African American GFR (CKD) 35 (>60 ml/min/1.73 sqM); Anion Gap 16 mmol/L; Blood Urea Nitrogen 83 mg/dL (9-20); Calcium 9.1 mg/dL (8.4-10.2); Carbon Dioxide 22 mmol/L (22-30); Chloride 95 mmol/L (98-107); Glucose 172 mg/dL (74-99); Non-African American GFR(CKD) 30 (>60 ml/min/1.73 sqM); Sodium 133 mmol/L (137-145)
[2023-06-08] MEDS: BUMETANIDE 1 MG TAB PO SCH ×2 (10:02→22:37)
[2023-06-08] MEDS: SPIRONOLACTONE 25 MG TAB PO SCH (10:03)
[2023-06-08] MEDS: MORPHINE SULFATE IR 15 MG TABLET PO SCH ×4 (10:03→22:45)
[2023-06-08] MEDS: METOPROLOL SUCCINATE (ER) 25 MG TAB.ER.24H PO SCH (10:03)
[2023-06-08] MEDS: DAPAGLIFLOZIN PROPANEDIOL 10 MG TABLET PO SCH (10:03)
[2023-06-08] MEDS: ATORVASTATIN 40 MG TAB PO SCH (10:03)
[2023-06-08] MEDS: CYCLOBENZAPRINE 10 MG TAB PO SCH ×4 (10:03→21:54)
[2023-06-08] MEDS: DULoxetine HCL 60 MG CAPSULE.DR PO SCH ×2 (10:03→21:54)
[2023-06-08] MEDS: ASPIRIN 81 MG PO SCH (10:03)
--- NOTE | 2023-06-08 10:03 | P.PN ---
Subjective HISTORY OF PRESENT ILLNESS: This is a 52-year-old male with a past medical history significant for nonischemic cardiomyopathy, AICD implantation, nonsustained ventricular tachycardia, hypertension, hyperlipidemia, COPD, nicotine dependence, diabetes and right-sided foot diabetic ulcer. Patient follows in the office with Dr. Abbasi. We have been asked to see the patient in consultation for preoperative clearance. Patient examined at the bedside. Patient has been evaluated by vascular surgery with recommendations for right-sided [id number] amputation. At the time of examination, patient states he is declining to proceed with amputation. The patient currently denies any chest pain or pressure. He denies any shortness of breath. Blood pressure 100/70. Heart rate around 100. * EKG reveals sinus mechanism with heart rate of 110. * Chest xray mild cardiomegaly and interstitial density. Correlate for CHF with pulmonary vascular congestion. Interstitial pneumonitis or atypical pneumonia would be an alternative consideration. * Current home cardiac medications include Aldactone 25 mg twice a day, Imdur 30 mg daily, Bumex 2 mg twice a day, atorvastatin 40 mg daily, aspirin 81 mg daily, and Midodrine 5mg BID * Most recent echocardiogram obtained in June 2022 revealed ejection fraction less than 20%, severe pulmonary hypertension, moderate to severe mitral regurgitation, moderate tricuspid regurgitation * Cardiac catheterization history: February 2018 revealing minimal coronary artery disease 06/07/2023 Patient examined this morning at the bedside. Patient denies chest pain or p ressure. He denies shortness of breath. He states the pain in his right foot has improved compared to yesterday. He is still declining to proceed with amputation. Patient's blood pressure is improved today with a reading of 122/72. 06/08/2023 Patient examined this morning at the bedside. Patient denies chest pain or pressure. He denies shortness of breath. Patient reports decreased pain in his right foot. He continues to refuse amputation. He remains on IV antibiotics. Blood pressure is stable with a systolic in the [id number]. PHYSICAL EXAM: VITAL SIGNS: Reviewed. GENERAL: Well-developed in no acute distress. HEENT: Head is normocephalic. Pupils are equal, round. Sclerae anicteric. Mucous membranes of the mouth are moist. Neck supple. No JVD or thyromegaly LUNGS: Respirations even and unlabored. Lungs essentially clear to auscultation bilaterally. HEART: Regular rate and rhythm. S1 and S2 heard. Systolic murmur noted. ABDOMEN: Soft. Nondistended. Nontender. EXTREMITIES: Normal range of motion. No clubbing or cyanosis. Peripheral pulses intact. 1+ bilateral lower extremity edema. Fredy wrap noted to right lower extremity. NEUROLOGIC: Awake and alert. Oriented x 3. ASSESSMENT: Right diabetic foot ulcer Recent hospitalization for acute CHF Nonischemic cardiomyopathy History of AICD implantation Chronic heart failure with reduced ejection fraction, currently euvolemic History of nonsustained ventricular tachycardia Hyperlipidemia Diabetes Chronic kidney disease Nicotine dependence History of medication noncompliance Hypotension, maintained on Midodrine outpatient PLAN: Continue current cardiac medications Continue to monitor blood pressure Unable to tolerate FREDY/ARB secondary to soft blood pressures requiring Midodrine Patient is at intermediate to high risk to undergo surgery from a cardiac standpoint. There are no absolute contraindications for patient to proceed. However at the time of our examination, the patient is refusing to proceed with amputation. Patient is currently stable for discharge from a cardiac standpoint Further recommendations pending patient's course Nurse practitioner note has been reviewed by physician. Signing provider agrees with the documented findings, assessment, and plan of care. Objective - Vital Signs Vital signs: Vital Signs Temp 98.5 F 06/08/23 07:44 Pulse 104 H 06/08/23 07:44 Resp 18 06/08/23 07:44 BP 93/63 06/08/23 07:44 Pulse Ox 97 06/08/23 07:44 FiO2 Intake & Output 06/07/23 06/08/23 06/08/23 18:59 06:59 18:59 Intake Total 1220 Output Total 1 Balance 1219 Weight 90.718 kg Intake: Intake, IV Titration 260 Amount Piperacillin-Tazobactam 3 200 .375 gm In Sodium Chloride 0.9% 100 ml @ 25 mls/hr IVPB Q8H [facility] Rx#: [id number] Sodium Chloride 0.9% 1, 60 000 ml @ 10 mls/hr IV . Q24H [facility] Rx#:[id number] Oral 960 Output: Urine 1 Other: Voiding Method Toilet Toilet Urinal # Voids 1 # Bowel Movements 1 - Labs CBC & Chem 7: 06/05/23 07:29 06/08/23 06:44 Labs: Abnormal Lab Results - Last 24 Hours (Table) 06/07/23 06/07/23 06/07/23 Range/Units 11:19 17:10 22:24 Sodium (137-145) mmol/L Chloride (98-107) mmol/L BUN (9-20) mg/dL Creatinine (0.66-1.25) mg/dL Glucose (74-99) mg/dL POC Glucose (mg/dL) 173 H 142 H 114 H (70-110) mg/dL 06/08/23 06/08/23 Range/Units 06:10 06:44 Sodium 133 L (137-145) mmol/L Chloride 95 L (98-107) mmol/L BUN 83 H (9-20) mg/dL Creatinine 2.39 H (0.66-1.25) mg/dL Glucose 172 H (74-99) mg/dL POC Glucose (mg/dL) 171 H (70-110) mg/dL Microbiology - Last 24 Hours (Table) 06/04/23 23:14 Blood Culture - Preliminary Blood 06/04/23 23:14 Blood Culture - Preliminary Blood
[2023-06-08] MEDS: POTASSIUM CHLORIDE ER 20 MEQ TAB.ER PO SCH (10:04)
[2023-06-08] MEDS: NICOTINE 14MG/24HR PATCH TRANSDERM SCH (10:24)
--- NOTE | 2023-06-08 11:28 | P.PN ---
Subjective Patient is seen for f/u for ANGY on CKD. No complaints. Good UOP. Maintained on oral Bumex BP remains low with SBP low 90s Serum creatinine stable at 2.2-2.3 mg/dL. Objective - Vital Signs Vital signs: Vital Signs Temp 98.5 F 06/08/23 07:44 Pulse 104 H 06/08/23 07:44 Resp 18 06/08/23 07:44 BP 93/63 06/08/23 07:44 Pulse Ox 97 06/08/23 07:44 FiO2 Intake & Output 06/07/23 06/08/23 06/08/23 18:59 06:59 18:59 Intake Total 1220 Output Total 1 Balance 1219 Weight 90.718 kg Intake: Intake, IV Titration 260 Amount Piperacillin-Tazobactam 3 200 .375 gm In Sodium Chloride 0.9% 100 ml @ 25 mls/hr IVPB Q8H [facility] Rx#: [id number] Sodium Chloride 0.9% 1, 60 000 ml @ 10 mls/hr IV . Q24H [facility] Rx#:[id number] Oral 960 Output: Urine 1 Other: Voiding Method Toilet Toilet Urinal # Voids 1 # Bowel Movements 1 - Exam Patient is awake, comfortable, in no acute distress Examination of the heart S1 and S2 Examination of the lungs bilateral breath sounds are heard Abdomen is soft nontender Examination of lower extremities shows right foot is wrapped, 2+ edema noted bilaterally FOOD ADVISER exam grossly intact - Labs CBC & Chem 7: 06/05/23 07:29 06/08/23 06:44 Labs: Abnormal Lab Results - Last 24 Hours (Table) 06/07/23 06/07/23 06/08/23 Range/Units 17:10 22:24 06:10 Sodium (137-145) mmol/L Chloride (98-107) mmol/L BUN (9-20) mg/dL Creatinine (0.66-1.25) mg/dL Glucose (74-99) mg/dL POC Glucose (mg/dL) 142 H 114 H 171 H (70-110) mg/dL 06/08/23 Range/Units 06:44 Sodium 133 L (137-145) mmol/L Chloride 95 L (98-107) mmol/L BUN 83 H (9-20) mg/dL Creatinine 2.39 H (0.66-1.25) mg/dL Glucose 172 H (74-99) mg/dL POC Glucose (mg/dL) (70-110) mg/dL Microbiology - Last 24 Hours (Table) 06/04/23 23:14 Blood Culture - Preliminary Blood 06/04/23 23:14 Blood Culture - Preliminary Blood Assessment and Plan Assessment: 1. Acute kidney injury, nonoliguric, ATN and cardiorenal syndrome. Patient remains with volume overload therefore I will continue with current dose of diuretics. Midodrine was increased yesterday. No nephrotoxic agents identifi ed. Continue with farxiga. No obstruction noted on ultrasound done on 05/16/2023. UA is benign. 2. Chronic systolic CHF with EF of less than 20% with moderate to severe mitral regurgitation, moderate tricuspid regurg and severe pulmonary hypertension. Status post AICD 3. Right foot ulcer maintained on IV antibiotics. Amputation has been discussed previously by vascular surgery. 4. Hypervolemic hyponatremia, improved Plan: Continue with current dose of Bumex Continue with farxiga Continue midodrine Maintain fluid restriction Continue with antibiotics as per ID
[2023-06-08] MEDS: SODIUM CHLORIDE 0.9% 1,000 ML IV SCH (11:31)
[2023-06-08 11:39] LABS: Glucose,Whole Blood 92 mg/dL (70-110)
--- NOTE | 2023-06-08 11:42 | P.PN ---
Subjective Progress Note Date: 06/08/23 Principal diagnosis: Right diabetic foot and osteomyelitis Patient is a 52-year-old male with a past medical history significant for diabetes mellitus patient did have extensive right heel diabetic foot infection with underlying osteomyelitis with a recent admission to the hospital patient is status post debridement and culture positive for Proteus providentia anaerobes and Acinetobacter, patient did get a PICC line and was advised a 6- week course of IV Zosyn, patient now presenting back to the hospital with weakness unable to sleep and unable to infuse his antibiotics per advise of his home care nurse. On today's evaluation that is 06/08/2023, the patient denies any fever or any chills, the patient is breathing comfortably on room air without any need for supplemental oxygen, the patient denies any chest pain or any cough , patient denies abdominal pain, no nausea/vomiting diarrhea , the patient denies any pain to the right heel wound area Patient did have a creatinine is 2.39, and no CBC done today Objective - Vital Signs Vital signs: Vital Signs Temp 98.5 F 06/08/23 07:44 Pulse 104 H 06/08/23 07:44 Resp 18 06/08/23 07:44 BP 93/63 06/08/23 07:44 Pulse Ox 97 06/08/23 07:44 FiO2 Intake & Output 06/07/23 06/08/23 06/08/23 18:59 06:59 18:59 Intake Total 1220 Output Total 1 Balance 1219 Weight 90.718 kg Intake: Intake, IV Titration 260 Amount Piperacillin-Tazobactam 3 200 .375 gm In Sodium Chloride 0.9% 100 ml @ 25 mls/hr IVPB Q8H [facility] Rx#: [id number] Sodium Chloride 0.9% 1, 60 000 ml @ 10 mls/hr IV . Q24H [facility] Rx#:[id number] Oral 960 Output: Urine 1 Other: Voiding Method Toilet Toilet Urinal # Voids 1 # Bowel Movements 1 - Exam GENERAL DESCRIPTION: Middle-age male up in bed in no distress RESPIRATORY SYSTEM: Unlabored breathing , clear to auscultation anteriorly HEART: S1 S2 regular rate and rhythm , ABDOMEN: Soft , no tenderness EXTREMITIES: Right foot wound is currently dressed - Labs CBC & Chem 7: 06/05/23 07:29 06/08/23 06:44 Labs: Abnormal Lab Results - Last 24 Hours (Table) 06/07/23 06/07/23 06/08/23 Range/Units 17:10 22:24 06:10 Sodium (137-145) mmol/L Chloride (98-107) mmol/L BUN (9-20) mg/dL Creatinine (0.66-1.25) mg/dL Glucose (74-99) mg/dL POC Glucose (mg/dL) 142 H 114 H 171 H (70-110) mg/dL 06/08/23 Range/Units 06:44 Sodium 133 L (137-145) mmol/L Chloride 95 L (98-107) mmol/L BUN 83 H (9-20) mg/dL Creatinine 2.39 H (0.66-1.25) mg/dL Glucose 172 H (74-99) mg/dL POC Glucose (mg/dL) (70-110) mg/dL Microbiology - Last 24 Hours (Table) 06/04/23 23:14 Blood Culture - Preliminary Blood 06/04/23 23:14 Blood Culture - Preliminary Blood Assessment and Plan (1) Chronic ulcer of right foot with fat layer exposed Current Visit: Yes Status: Acute Code(s): L97.512 - NON-PRS CHRONIC ULCER OTH PRT RIGHT FOOT W FAT LAYER EXPOSED SNOMED Code(s): 29401452560804663 (2) Foot osteomyelitis, right Current Visit: Yes Status: Acute Code(s): M86.9 - OSTEOMYELITIS, UNSPECIFIED SNOMED Code(s): 5507567918648277 Plan: 1patient with a chronic nonhealing wound to the right heel area concerning for acute on chronic osteomyelitis culture was positive predominantly with gram- negative pathogen on his last visit , including Proteus Providencia Acinetobacter strep and anaerobes, patient presented back to the hospital with generalized not feeling well unable to take care of himself at home and infuses antibiotics 2-patient with renal insufficiency high risk of nephrotoxicity 3-patient has refused amputation even though the chances of healing of this wound on the are on lower side, because of extensive wound and noncompliance 4-patient to Zosyn and will recheck a CBC and inflammatory markers with a.m. lab Dictation was produced using [employer] dictation software. please excuse any grammatical, word or spelling errors. Time with Patient: Less than 30
[2023-06-08 13:08] LABS: Glucose,Whole Blood 65 mg/dL (70-110)
[2023-06-08 13:23] LABS: Glucose,Whole Blood 63 mg/dL (70-110)
[2023-06-08 13:37] LABS: Glucose,Whole Blood 67 mg/dL (70-110)
--- NOTE | 2023-06-08 14:06 | P.PN ---
Progress Note - Text Progress Note Date: 06/08/23 Chief Complaint: foot abscess This is a 52-year-old patient, follows with Dr. Rodríguez. Chronic stable medical condition include CHF EF less than 20%, COPD, diabetes mellitus type 2, hypertension, hyperlipidemia, obstructive sleep apnea, anxiety, AICD, lower extremity venous insufficiency. Patient had lower extremity wounds and has been followed by ID and Dr. Lugo from vascular. Patient recently in the hospital from May 14 through May 29. Patient had worsening wound after right foot. She has been told multiple times to Dr. Lugo to proceed with amputation. Last admission he also was on IV Bumex drip and dobutamine drip for congestive heart failure. Was discharged home on antibiotics. Patient now presents here to again with worsening wound. malodorous drainage. Denies fever and chills. Tired. June 06: Patient is now reluctant to proceed for surgery. He knows that he needs it but is just not ready. I did explain to him that antibiotics will not help at all. This was discussed with also ID. Also yesterday evening with the vascular surgery Dr. Lugo. Eating well. June 07: On IV Zosyn. Some bump in creatinine. Being followed by nephrology. Patient does not want to go to rehab anymore. Wants to go home. Discussed with ID. Patient be discharged and Zosyn. June 08: Eating well. On oral Bumex. Creatinine been followed. Wound care. Active Medications Albuterol Sulfate (Albuterol Hfa Inhaler) 2 puff INHALATION RT-QID PRN PRN Reason: Shortness Of Breath Aspirin (Aspirin 81 Mg) 81 mg PO DAILY [facility] Last Admin: 06/08/23 10:03 Dose: 81 mg Atorvastatin Calcium (Atorvastatin 40 Mg Tab) 40 mg PO DAILY [facility] Last Admin: 06/08/23 10:03 Dose: 40 mg Bumetanide (Bumetanide 1 Mg Tab) 2 mg PO BID [facility] Last Admin: 06/08/23 10:02 Dose: 2 mg Cyclobenzaprine HCl (Cyclobenzaprine 10 Mg Tab) 10 mg PO QID [facility] Last Admin: 06/08/23 13:02 Dose: 10 mg Dapagliflozin (Dapagliflozin Propanediol 10 Mg Tablet) 10 mg PO DAILY [facility] Last Admin: 06/08/23 10:03 Dose: 10 mg Diphenhydramine HCl (Diphenhydramine 25 Mg Cap) 25 mg PO QID PRN PRN Reason: Itching Last Admin: 06/07/23 06:09 Dose: 25 mg Duloxetine HCl (Duloxetine Hcl 60 Mg Capsule.Dr) 60 mg PO BID [facility] Last Admin: 06/08/23 10:03 Dose: 60 mg Hydromorphone HCl (Hydromorphone 1 Mg/Ml 1 Ml Syringe) 1 mg IVP Q4HR PRN PRN Reason: Pain Last Admin: 06/07/23 10:23 Dose: 1 mg Piperacillin Sod/Tazobactam (Sod 3.375 gm/ Sodium Chloride) 100 mls @ 25 mls/hr IVPB Q8H [facility] Last Admin: 06/08/23 10:04 Dose: 25 mls/hr Sodium Chloride (Saline 0.9%) 1,000 mls @ 10 mls/hr IV .Q24H [facility] Last Admin: 06/08/23 11:31 Dose: Not Given Insulin Aspart (Insulin Aspart (Novolog) 100 Unit/Ml Vial) 0 unit SQ ACHS [facility]; Protocol Last Admin: 06/08/23 11:54 Dose: Not Given Insulin Aspart (Insulin Aspart (Novolog) 100 Unit/Ml Vial) 6 unit SQ AC-TID [facility] Last Admin: 06/08/23 13:07 Dose: Not Given Insulin Detemir (Insulin Detemir (Levemir) 100 Unit/Ml Syr) 35 unit SQ DAILY@0700 [facility] Last Admin: 06/08/23 06:39 Dose: 35 unit Metoprolol Succinate (Metoprolol Succinate (Er) 25 Mg Tab.Er.24h) 25 mg PO DAILY [facility] Last Admin: 06/08/23 10:03 Dose: 25 mg Midodrine (Midodrine 5 Mg Tab) 10 mg PO AC-TID [facility] Last Admin: 06/08/23 13:02 Dose: 10 mg Morphine Sulfate (Morphine Sulfate Ir 15 Mg Tablet) 30 mg PO QID [facility] Last Admin: 06/08/23 13:02 Dose: 30 mg Nicotine (Nicotine 14mg/24hr Patch) 1 patch TRANSDERM DAILY [facility] Last Admin: 06/08/23 10:24 Dose: Not Given Potassium Chloride (Potassium Chloride Er 20 Meq Tab.Er) 20 meq PO DAILY [facility] Last Admin: 06/08/23 10:04 Dose: 20 meq Silver Sulfadiazine (Silver Sulfadiazine 1% Cream 25 Gm Tube) 1 applic TOPICAL BID [facility]; Protocol Last Admin: 06/08/23 10:27 Dose: 1 applic Spironolactone (Spironolactone 25 Mg Tab) 25 mg PO DAILY [facility] Last Admin: 06/08/23 10:03 Dose: 25 mg Zolpidem Tartrate (Zolpidem 5 Mg Tab) 10 mg PO HS PRN PRN Reason: Insomnia Social history: Lives with his 20-year-old son. Disabled. 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 Smoking 2 packs a day for most of his life . Stop drinking heavy alcohol about 20 years ago. Has done marijuana. Physical examination: VITAL SIGNS: 98.5, 104, 18, 93 x 63, 97% room air GENERAL: Sitting edge of the bed, eating lunch EYES: Pupils equal. Conjunctiva normal. HEENT: External appearance of nose and ears normal, oral cavity grossly normal. NECK: JVD unable to assess; masses not palpable. HEART: First and second heart sounds are normal; some edema LUNGS: Respiratory rate normal; diminished breath sounds ABDOMEN: Soft, nontender, liver spleen not palpable, no masses palpable. PSYCH: Alert and oriented x3; mood and affect anxious. NEUROLOGICAL: Cranial nerves grossly intact. No facial asymmetry DERMATOLOGICAL: Right foot wound. Details in nursing notes. INVESTIGATIONS, reviewed in the clinical context: June 08: Creatinine 2.39 June 07: Creatinine 2.27 June 05: White count 10.8 hemoglobin 11.6 platelets 218 sodium 129 potassium 4.0 BUN 82 creatinine 2.03 June 04: White count 14 hemoglobin 11.9 platelets 226 sodium 127 potassium 4.3 BUN 93 creatinine 1.78 EKG tracing personally reviewed by ok-sinus tachycardia. Nonspecific ST-T wave changes. Right foot x-ray: No acute fracture dislocation. Osteotomy of the fifth metatarsal and mid diaphysis. Previous labs from last admission May 28: Potassium 3.9 and 116 creatinine 2.60 Wound culture: Proteus vulgaris. Streptococcus agalactiae group B Assessment and plan: -Acute on chronic recurrent right lower leg cellulitis, infected right heel diabetic ulcer with prior history of debridement. Has been told for amputation before. Not improving Wound swab for Gram stain and culture. Proteus vulgaris, Streptococcus agalactiae group B from last admission IV Zosyn is received from last admission.-Continued Patient has not healed with antibiotics and debridement alone. Does need amputation as discussed previously with Dr. Lugo. This was reinforced at length with the patient. patient accepts that he needs to amputation but not ready for the same. -chronic congestive heart failure nonischemic cardiomyopathy systolic dysfun ction EF less than 20%: Stabilized Bumex 2 mg twice a day. Aldactone 25 mg twice a day AICD. Fluid restriction Being followed by cardiology and nephrology - COPD in a previous smoker Ventolin. -Diabetes mellitus type 2 chronically on insulin, uncontrolled with [id number] Decrease Levemir 35 units subcu daily . Diabetic diet. Accu-Cheks and sliding scale DC NovoLog -Hyperlipidemia Lipitor -Chronic kidney disease stage III from diabetic nephropathy and nephrosclerosis Baseline creatinine of 1.2 on May 14. -Acute kidney injury likely ATN from cardiorenal syndrome : Some worsening Follow renal function. Nephrology following -Hyponatremia Fluid restriction -Essential hypertension -Obstructive sleep apnea sometimes uses CPAP machine -Diabetic peripheral neuropathy -Anxiety Ativan when necessary -DJD Tylenol when necessary -AICD -Lower extremity chronic venous insufficiency -Full code If creatinine doesn't go too much by tomorrow will plan for discharge. Will DC scheduled NovoLog.
[2023-06-08 15:20] LABS: Glucose,Whole Blood 124 mg/dL (70-110)
[2023-06-08 16:59] LABS: Glucose,Whole Blood 138 mg/dL (70-110)
[2023-06-08 19:59] LABS: Glucose,Whole Blood 187 mg/dL (70-110)
[2023-06-08] MEDS: diphenhydrAMINE 25 MG CAP PO PRN (21:54)
[2023-06-09] MEDS: PIPERACILLIN-TAZOBACTAM 3.375 GM in SODIUM CHLORIDE 0.9% 100 ML IVPB SCH ×3 (02:57→17:57)
[2023-06-09] MEDS: HYDROmorphone 1 MG/ML 1 ML SYRINGE IVP PRN (04:05)
[2023-06-09 06:03] LABS: Glucose,Whole Blood 105 mg/dL (70-110)
[2023-06-09] MEDS: MIDODRINE 5 MG TAB PO SCH ×3 (06:49→17:58)
[2023-06-09] MEDS: INSULIN DETEMIR (LEVEMIR) 100 UNIT/ML SYR SQ SCH (06:49)
[2023-06-09] MEDS: INSULIN ASPART (NovoLOG) 100 UNIT/ML VIAL SQ SCH ×4 (06:49→21:24)
--- NOTE | 2023-06-09 07:09 | XR ---
EXAMINATION TYPE: XR chest 2V DATE OF EXAM: 06/09/2023 6:40 AM COMPARISON: Chest radiographs from 06/05/2023 TECHNIQUE: XR chest 2V Frontal and lateral views of the chest. CLINICAL INDICATION:Male, 52 years old with history of chf; FINDINGS: Lungs/Pleura: There is no evidence of pleural effusion, focal consolidation, or pneumothorax. Stable diffuse interstitial densities. Heart/mediastinum: Cardiomediastinal silhouette is enlarged and stable. Single-lead cardiac conductio n device overlying the left hemithorax with lead projecting over the right ventricle. Musculoskeletal: No acute osseous pathology. Other: Right PICC line with distal tip in the high SVC. IMPRESSION: Overall stable examination with mild cardiomegaly and interstitial densities. Correlate for CHF with pulmonary vascular congestion versus interstitial pneumonitis/atypical pneumonia.
[2023-06-09 07:31] LABS: Basophils # (A) 0.1 k/uL (0-0.2); Basophils % (A) 1 %; Eosinophils # (A) 1.4 k/uL (0-0.7); Eosinophils % (A) 14 %; HCT 35.5 % (39.0-53.0); HGB 11.4 gm/dL (13.0-17.5); Hypochromasia Slight; Lymphocytes # (A) 1.3 k/uL (1.0-4.8); Lymphocytes % (A) 13 %; MCH 28.7 pg (25.0-35.0); MCHC 32.1 g/dL (31.0-37.0); MCV 89.4 fL (80.0-100.0); Mean Platelet Volume 8.9; Monocytes # (A) 0.6 k/uL (0-1.0); Monocytes % (A) 6 %; Neutrophils # (A) 6.3 k/uL (1.3-7.7); Neutrophils % (A) 64 %; Platelet Count 256 k/uL (150-450); RBC 3.97 m/uL (4.30-5.90); WBC 9.9 k/uL (3.8-10.6)
[2023-06-09] MEDS: ATORVASTATIN 40 MG TAB PO SCH (10:04)
[2023-06-09] MEDS: POTASSIUM CHLORIDE ER 20 MEQ TAB.ER PO SCH (10:05)
[2023-06-09] MEDS: CYCLOBENZAPRINE 10 MG TAB PO SCH ×4 (10:05→21:24)
[2023-06-09] MEDS: BUMETANIDE 1 MG TAB PO SCH ×2 (10:05→22:26)
[2023-06-09] MEDS: DULoxetine HCL 60 MG CAPSULE.DR PO SCH ×2 (10:05→21:24)
[2023-06-09] MEDS: MORPHINE SULFATE IR 15 MG TABLET PO SCH ×4 (10:05→21:23)
[2023-06-09] MEDS: DAPAGLIFLOZIN PROPANEDIOL 10 MG TABLET PO SCH (10:05)
[2023-06-09] MEDS: METOPROLOL SUCCINATE (ER) 25 MG TAB.ER.24H PO SCH (10:05)
[2023-06-09] MEDS: SPIRONOLACTONE 25 MG TAB PO SCH (10:05)
[2023-06-09] MEDS: ASPIRIN 81 MG PO SCH (10:05)
[2023-06-09] MEDS: NICOTINE 14MG/24HR PATCH TRANSDERM SCH (10:09)
--- NOTE | 2023-06-09 10:32 | P.PN ---
Subjective Progress Note Date: 06/09/23 Patient seen today resting on the side of the bed. He denies any episodes of chest pain or chest pressure. He continues to deny shortness of breath. Patient's only complaint continues to be pain in the right foot. Pedal pulses remain absent bilaterally, and has discoloration of the right foot. He does not want amputation at this time and he remains on IV antibiotics. Blood pressures remain soft 99/71, he continues with midodrine 10 mg 3 times a day Objective - Vital Signs Vital signs: Vital Signs Temp 98.7 F 06/09/23 07:25 Pulse 91 06/09/23 07:25 Resp 17 06/09/23 07:25 BP 99/71 06/09/23 07:25 Pulse Ox 96 06/09/23 07:25 FiO2 Intake & Output 06/08/23 06/09/23 06/09/23 18:59 06:59 18:59 Other: Voiding Method Toilet Toilet - Exam PHYSICAL EXAM: VITAL SIGNS: Reviewed. GENERAL: Well-developed in no acute distress. HEENT: Head is normocephalic. Pupils are equal, round. Sclerae anicteric. Mucous membranes of the mouth are moist. NECK: Supple. No JVD or thyromegaly RESPIRATORY: Respirations even and unlabored. Lungs diminished to auscultation bilaterally. CARDIO: Regular rate and rhythm. S1 and S2 heard. No murmur or gallops. EXTREMITIES: Normal range of motion. No clubbing. Pedal pulses absent, right foot remains discolored NEURO: Orientated to person, time, mood is appropriate - Labs CBC & Chem 7: 06/09/23 06:29 06/08/23 06:44 Labs: Abnormal Lab Results - Last 24 Hours (Table) 06/08/23 06/08/23 06/08/23 Range/Units 13:06 13:21 13:36 RBC (4.30-5.90) m/uL Hgb (13.0-17.5) gm/dL Hct (39.0-53.0) % Eosinophils # (0-0.7) k/uL POC Glucose (mg/dL) 65 L 63 L 67 L (70-110) mg/dL C-Reactive Protein (<1.0) mg/dL 06/08/23 06/08/23 06/08/23 Range/Units 15:18 16:58 19:58 RBC (4.30-5.90) m/uL Hgb (13.0-17.5) gm/dL Hct (39.0-53.0) % Eosinophils # (0-0.7) k/uL POC Glucose (mg/dL) 124 H 138 H 187 H (70-110) mg/dL C-Reactive Protein (<1.0) mg/dL 06/09/23 06/09/23 Range/Units 06:29 06:29 RBC 3.97 L (4.30-5.90) m/uL Hgb 11.4 L (13.0-17.5) gm/dL Hct 35.5 L (39.0-53.0) % Eosinophils # 1.4 H (0-0.7) k/uL POC Glucose (mg/dL) (70-110) mg/dL C-Reactive Protein 3.9 H (<1.0) mg/dL Assessment and Plan Assessment: ASSESSMENT: Right diabetic foot ulcer Recent hospitalization for acute CHF Nonischemic cardiomyopathy History of AICD implantation Chronic heart failure with reduced ejection fraction, currently euvolemic History of nonsustained ventricular tachycardia Hyperlipidemia Diabetes Chronic kidney disease Nicotine dependence History of medication noncompliance Hypotension, maintained on Midodrine outpatient Plan: PLAN: Continue current cardiac medications Continue to monitor blood pressure Unable to tolerate BALBINA/ARB secondary to soft blood pressures requiring Midodrine Patient is at intermediate to high risk to undergo surgery from a cardiac standpoint. There are no absolute contraindications for patient to proceed. However at the time of our examination, the patient is refusing to proceed with amputation. Patient is currently stable for discharge from a cardiac standpoint Further recommendations pending patient's course Nurse practitioner note has been reviewed by physician. Signing provider agrees with the documented findings, assessment, and plan of care.
[2023-06-09 11:27] LABS: Glucose,Whole Blood 135 mg/dL (70-110)
[2023-06-09] MEDS: SODIUM CHLORIDE 0.9% 1,000 ML IV SCH (11:44)
--- NOTE | 2023-06-09 11:47 | P.PN ---
Subjective Patient is seen for f/u for ANGY on CKD. No complaints. Good UOP. Maintained on oral Bumex BP remains low with SBP low 90s Serum creatinine stable at 2.2-2.3 mg/dL. Objective - Vital Signs Vital signs: Vital Signs Temp 98.7 F 06/09/23 07:25 Pulse 91 06/09/23 07:25 Resp 17 06/09/23 07:25 BP 99/71 06/09/23 07:25 Pulse Ox 96 06/09/23 07:25 FiO2 Intake & Output 06/08/23 06/09/23 06/09/23 18:59 06:59 18:59 Other: Voiding Method Toilet Toilet - Exam Patient is awake, comfortable, in no acute distress Examination of the heart S1 and S2 Examination of the lungs bilateral breath sounds are heard Abdomen is soft nontender Examination of lower extremities shows right foot is wrapped, 2+ edema noted bilaterally MANAGER CARDIAC exam grossly intact - Labs CBC & Chem 7: 06/09/23 06:29 06/08/23 06:44 Labs: Abnormal Lab Results - Last 24 Hours (Table) 06/08/23 06/08/23 06/08/23 Range/Units 13:06 13:21 13:36 RBC (4.30-5.90) m/uL Hgb (13.0-17.5) gm/dL Hct (39.0-53.0) % Eosinophils # (0-0.7) k/uL POC Glucose (mg/dL) 65 L 63 L 67 L (70-110) mg/dL C-Reactive Protein (<1.0) mg/dL 06/08/23 06/08/23 06/08/23 Range/Units 15:18 16:58 19:58 RBC (4.30-5.90) m/uL Hgb (13.0-17.5) gm/dL Hct (39.0-53.0) % Eosinophils # (0-0.7) k/uL POC Glucose (mg/dL) 124 H 138 H 187 H (70-110) mg/dL C-Reactive Protein (<1.0) mg/dL 06/09/23 06/09/23 06/09/23 Range/Units 06:29 06:29 11:26 RBC 3.97 L (4.30-5.90) m/uL Hgb 11.4 L (13.0-17.5) gm/dL Hct 35.5 L (39.0-53.0) % Eosinophils # 1.4 H (0-0.7) k/uL POC Glucose (mg/dL) 135 H (70-110) mg/dL C-Reactive Protein 3.9 H (<1.0) mg/dL Assessment and Plan Assessment: 1. Acute kidney injury, nonoliguric, ATN and cardiorenal syndrome. Patient remains with volume overload therefore I will continue with current dose of diuretics. Midodrine was increased . No nephrotoxic agents identified. Continue with farxiga. No obstruction noted on ultrasound done on 05/16/2023. UA is benign. 2. Chronic systolic CHF with EF of less than 20% with moderate to severe mitral regurgitation, moderate tricuspid regurg and severe pulmonary hypertension. Status post AICD 3. Right foot ulcer maintained on IV antibiotics. Amputation has been discussed previously by vascular surgery. 4. Hypervolemic hyponatremia, improved Plan: Continue with current dose of Bumex Continue with farxiga Continue midodrine Maintain fluid restriction Continue with antibiotics as per ID
--- NOTE | 2023-06-09 15:44 | P.PN ---
Subjective Progress Note Date: 06/09/23 Principal diagnosis: Right diabetic foot and osteomyelitis Patient is a 52-year-old male with a past medical history significant for diabetes mellitus patient did have extensive right heel diabetic foot infection with underlying osteomyelitis with a recent admission to the hospital patient is status post debridement and culture positive for Proteus providentia anaerobes and Acinetobacter, patient did get a PICC line and was advised a 6- week course of IV Zosyn, patient now presenting back to the hospital with weakness unable to sleep and unable to infuse his antibiotics per advise of his home care nurse. On today's evaluation that is 06/09/2023, the patient remains to be afebrile , the patient is breathing comfortably on room air and denies any shortness of ana laura ath, the patient denies any chest pain cough or sputum production, patient denies nausea/vomiting/ diarrhea and no abdominal pain , patient denies any pain to the right heel wound area, patient mention feeling anxious wants some Xanax Patient did have a creatinine is 2.39 as of yesterday, he did have a white count of 9.9 today Objective - Vital Signs Vital signs: Vital Signs Temp 97.5 F L 06/09/23 13:18 Pulse 96 06/09/23 13:18 Resp 17 06/09/23 13:18 BP 95/71 06/09/23 13:18 Pulse Ox 97 06/09/23 13:18 FiO2 Intake & Output 06/08/23 06/09/23 06/09/23 18:59 06:59 18:59 Other: Voiding Method Toilet Toilet Toilet - Exam GENERAL DESCRIPTION: Middle-age male up in bed in no distress RESPIRATORY SYSTEM: Unlabored breathing , clear to auscultation anteriorly HEART: S1 S2 regular rate and rhythm , ABDOMEN: Soft , no tenderness EXTREMITIES: Right foot wound is currently dressed - Labs CBC & Chem 7: 06/09/23 06:29 06/08/23 06:44 Labs: Abnormal Lab Results - Last 24 Hours (Table) 06/08/23 06/08/23 06/09/23 Range/Units 16:58 19:58 06:29 RBC 3.97 L (4.30-5.90) m/uL Hgb 11.4 L (13.0-17.5) gm/dL Hct 35.5 L (39.0-53.0) % Eosinophils # 1.4 H (0-0.7) k/uL POC Glucose (mg/dL) 138 H 187 H (70-110) mg/dL C-Reactive Protein (<1.0) mg/dL 06/09/23 06/09/23 Range/Units 06:29 11:26 RBC (4.30-5.90) m/uL Hgb (13.0-17.5) gm/dL Hct (39.0-53.0) % Eosinophils # (0-0.7) k/uL POC Glucose (mg/dL) 135 H (70-110) mg/dL C-Reactive Protein 3.9 H (<1.0) mg/dL Assessment and Plan (1) Chronic ulcer of right foot with fat layer exposed Current Visit: Yes Status: Acute Code(s): L97.512 - NON-PRS CHRONIC ULCER OTH PRT RIGHT FOOT W FAT LAYER EXPOSED SNOMED Code(s): 16673674183769841 (2) Foot osteomyelitis, right Current Visit: Yes Status: Acute Code(s): M86.9 - OSTEOMYELITIS, UNSPECIFIED SNOMED Code(s): 8060566410868180 Plan: 1patient with a chronic nonhealing wound to the right heel area concerning for acute on chronic osteomyelitis culture was positive predominantly with gram- negative pathogen on his last visit , including Proteus Providencia Acinetobacter strep and anaerobes, patient presented back to the hospital with generalized not feeling well unable to take care of himself at home and infuses antibiotics 2-patient with renal insufficiency high risk of nephrotoxicity 3-patient has refused amputation even though the chances of healing of this wound on the are on lower side, because of extensive wound and noncompliance 4-patient remains to be afebrile, the patient did have a normal white count, patient to Zosyn and monitor his clinical course closely Dictation was produced using [employer] dictation software. please excuse any grammatical, word or spelling errors. Time with Patient: Less than 30
[2023-06-09 17:27] LABS: Glucose,Whole Blood 174 mg/dL (70-110)
[2023-06-09 20:24] LABS: Glucose,Whole Blood 163 mg/dL (70-110)
[2023-06-09] MEDS: diphenhydrAMINE 25 MG CAP PO PRN (21:24)
--- NOTE | 2023-06-09 22:59 | P.PN ---
Progress Note - Text Progress Note Date: 06/09/23 Chief Complaint: foot abscess This is a 52-year-old patient, follows with Dr. Rodríguez. Chronic stable medical condition include CHF EF less than 20%, COPD, diabetes mellitus type 2, hypertension, hyperlipidemia, obstructive sleep apnea, anxiety, AICD, lower extremity venous insufficiency. Patient had lower extremity wounds and has been followed by ID and Dr. Lugo from vascular. Patient recently in the hospital from May 14 through May 29. Patient had worsening wound after right foot. She has been told multiple times to Dr. Lugo to proceed with amputation. Last admission he also was on IV Bumex drip and dobutamine drip for congestive heart failure. Was discharged home on antibiotics. Patient now presents here to again with worsening wound. malodorous drainage. Denies fever and chills. Tired. June 06: Patient is now reluctant to proceed for surgery. He knows that he needs it but is just not ready. I did explain to him that antibiotics will not help at all. This was discussed with also ID. Also yesterday evening with the vascular surgery Dr. Lugo. Eating well. June 07: On IV Zosyn. Some bump in creatinine. Being followed by nephrology. Patient does not want to go to rehab anymore. Wants to go home. Discussed with ID. Patient be discharged and Zosyn. June 08: Eating well. On oral Bumex. Creatinine been followed. Wound care. June 09: No new changes. Continue current medications. IV Zosyn. Discussed patient. Home tomorrow. Active Medications Albuterol Sulfate (Albuterol Hfa Inhaler) 2 puff INHALATION RT-QID PRN PRN Reason: Shortness Of Breath Aspirin (Aspirin 81 Mg) 81 mg PO DAILY [facility] Last Admin: 06/09/23 10:05 Dose: 81 mg Atorvastatin Calcium (Atorvastatin 40 Mg Tab) 40 mg PO DAILY [facility] Last Admin: 06/09/23 10:04 Dose: 40 mg Bumetanide (Bumetanide 1 Mg Tab) 2 mg PO BID [facility] Last Admin: 06/09/23 22:26 Dose: 2 mg Cyclobenzaprine HCl (Cyclobenzaprine 10 Mg Tab) 10 mg PO QID [facility] Last Admin: 06/09/23 21:24 Dose: 10 mg Dapagliflozin (Dapagliflozin Propanediol 10 Mg Tablet) 10 mg PO DAILY [facility] Last Admin: 06/09/23 10:05 Dose: 10 mg Diphenhydramine HCl (Diphenhydramine 25 Mg Cap) 25 mg PO QID PRN PRN Reason: Itching Last Admin: 06/09/23 21:24 Dose: 25 mg Duloxetine HCl (Duloxetine Hcl 60 Mg Capsule.Dr) 60 mg PO BID [facility] Last Admin: 06/09/23 21:24 Dose: 60 mg Hydromorphone HCl (Hydromorphone 1 Mg/Ml 1 Ml Syringe) 1 mg IVP Q4HR PRN PRN Reason: Pain Last Admin: 06/09/23 04:05 Dose: 1 mg Piperacillin Sod/Tazobactam (Sod 3.375 gm/ Sodium Chloride) 100 mls @ 25 mls/hr IVPB Q8H [facility] Last Admin: 06/09/23 17:57 Dose: 25 mls/hr Sodium Chloride (Saline 0.9%) 1,000 mls @ 10 mls/hr IV .Q24H [facility] Last Admin: 06/09/23 11:44 Dose: Not Given Insulin Aspart (Insulin Aspart (Novolog) 100 Unit/Ml Vial) 0 unit SQ ACHS [facility]; Protocol Last Admin: 06/09/23 21:24 Dose: 2 unit Insulin Detemir (Insulin Detemir (Levemir) 100 Unit/Ml Syr) 28 unit SQ DAILY@0700 [facility] Last Admin: 06/09/23 06:49 Dose: 28 unit Metoprolol Succinate (Metoprolol Succinate (Er) 25 Mg Tab.Er.24h) 25 mg PO DAILY [facility] Last Admin: 06/09/23 10:05 Dose: 25 mg Midodrine (Midodrine 5 Mg Tab) 10 mg PO AC-TID [facility] Last Admin: 06/09/23 17:58 Dose: 10 mg Morphine Sulfate (Morphine Sulfate Ir 15 Mg Tablet) 30 mg PO QID [facility] Last Admin: 06/09/23 21:23 Dose: 30 mg Nicotine (Nicotine 14mg/24hr Patch) 1 patch TRANSDERM DAILY [facility] Last Admin: 06/09/23 10:09 Dose: Not Given Potassium Chloride (Potassium Chloride Er 20 Meq Tab.Er) 20 meq PO DAILY [facility] Last Admin: 06/09/23 10:05 Dose: 20 meq Silver Sulfadiazine (Silver Sulfadiazine 1% Cream 25 Gm Tube) 1 applic TOPICAL BID [facility]; Protocol Last Admin: 06/09/23 21:30 Dose: Not Given Spironolactone (Spironolactone 25 Mg Tab) 25 mg PO DAILY [facility] Last Admin: 06/09/23 10:05 Dose: 25 mg Zolpidem Tartrate (Zolpidem 5 Mg Tab) 10 mg PO HS PRN PRN Reason: Insomnia Social history: Lives with his 20-year-old son. Disabled. 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 Smoking 2 packs a day for most of his life . Stop drinking heavy alcohol about 20 years ago. Has done marijuana. Physical examination: VITAL SIGNS: 97.5, 96, 17, 35/71, 97% room air GENERAL: Sitting edge of the bed, comfortable EYES: Pupils equal. Conjunctiva normal. HEENT: External appearance of nose and ears normal, oral cavity grossly normal. NECK: JVD unable to assess; masses not palpable. HEART: First and second heart sounds are normal; some edema LUNGS: Respiratory rate normal; diminished breath sounds ABDOMEN: Soft, nontender, liver spleen not palpable, no masses palpable. PSYCH: Alert and oriented x3; mood and affect anxious. NEUROLOGICAL: Cranial nerves grossly intact. No facial asymmetry DERMATOLOGICAL: Right foot wound. Details in nursing notes. INVESTIGATIONS, reviewed in the clinical context: June 09: Hemoglobin 11.4 June 08: Creatinine 2.39 June 07: Creatinine 2.27 June 05: White count 10.8 hemoglobin 11.6 platelets 218 sodium 129 potassium 4.0 BUN 82 creatinine 2.03 June 04: White count 14 hemoglobin 11.9 platelets 226 sodium 127 potassium 4.3 BUN 93 creatinine 1.78 EKG tracing personally reviewed by ok-sinus tachycardia. Nonspecific ST-T wave changes. Right foot x-ray: No acute fracture dislocation. Osteotomy of the fifth metatarsal and mid diaphysis. Previous labs from last admission May 28: Potassium 3.9 and 116 creatinine 2.60 Wound culture: Proteus vulgaris. Streptococcus agalactiae group B Assessment and plan: -Acute on chronic recurrent right lower leg cellulitis, infected right heel diabetic ulcer with prior history of debridement. Has been told for amputation before. Not improving Wound swab for Gram stain and culture. Proteus vulgaris, Streptococcus agalactiae group B from last admission IV Zosyn is received from last admission.-Continued Patient has not healed with antibiotics and debridement alone. Does need amputation as discussed previously with Dr. Lugo. This was reinforced at length with the patient. patient accepts that he needs to amputation but not ready for the same. -chronic congestive heart failure nonischemic cardiomyopathy systolic dys function EF less than 20%: Stabilized Bumex 2 mg twice a day. Aldactone 25 mg twice a day AICD. Fluid restriction Being followed by cardiology and nephrology - COPD in a previous smoker Ventolin. -Diabetes mellitus type 2 chronically on insulin, uncontrolled with [id number] Decrease Levemir 35 units subcu daily . Diabetic diet. Accu-Cheks and sliding scale DC NovoLog -Hyperlipidemia Lipitor -Chronic kidney disease stage III from diabetic nephropathy and nephrosclerosis Baseline creatinine of 1.2 on May 14. -Acute kidney injury likely ATN from cardiorenal syndrome : Some worsening Follow renal function. Nephrology following -Hyponatremia Fluid restriction -Essential hypertension -Obstructive sleep apnea sometimes uses CPAP machine -Diabetic peripheral neuropathy -Anxiety Ativan when necessary -DJD Tylenol when necessary -AICD -Lower extremity chronic venous insufficiency -Full code Plan for discharge tomorrow.
[2023-06-10] MEDS: PIPERACILLIN-TAZOBACTAM 3.375 GM in SODIUM CHLORIDE 0.9% 100 ML IVPB SCH ×2 (02:28→09:34)
[2023-06-10 06:21] LABS: Glucose,Whole Blood 90 mg/dL (70-110)
[2023-06-10] MEDS: MIDODRINE 5 MG TAB PO SCH (06:46)
[2023-06-10] MEDS: INSULIN DETEMIR (LEVEMIR) 100 UNIT/ML SYR SQ SCH (06:47)
[2023-06-10] MEDS: INSULIN ASPART (NovoLOG) 100 UNIT/ML VIAL SQ SCH (06:47)
[2023-06-10 07:59] LABS: African American GFR (CKD) 38 (>60 ml/min/1.73 sqM); Anion Gap 18 mmol/L; Blood Urea Nitrogen 95 mg/dL (9-20); Calcium 9.6 mg/dL (8.4-10.2); Carbon Dioxide 19 mmol/L (22-30); Chloride 100 mmol/L (98-107); Glucose 88 mg/dL (74-99); Non-African American GFR(CKD) 33 (>60 ml/min/1.73 sqM); Potassium 4.9 mmol/L (3.5-5.1); Sodium 137 mmol/L (137-145)
[2023-06-10 08:36] VITALS: BP 116/84; PULSE 92; RESP 20; TEMP 98.5
[2023-06-10] MEDS: METOPROLOL SUCCINATE (ER) 25 MG TAB.ER.24H PO SCH (08:41)
[2023-06-10] MEDS: CYCLOBENZAPRINE 10 MG TAB PO SCH (08:41)
[2023-06-10] MEDS: ATORVASTATIN 40 MG TAB PO SCH (08:41)
[2023-06-10] MEDS: DULoxetine HCL 60 MG CAPSULE.DR PO SCH (08:41)
[2023-06-10] MEDS: NICOTINE 14MG/24HR PATCH TRANSDERM SCH (08:41)
[2023-06-10] MEDS: BUMETANIDE 1 MG TAB PO SCH (08:41)
[2023-06-10] MEDS: SPIRONOLACTONE 25 MG TAB PO SCH (08:41)
[2023-06-10] MEDS: ASPIRIN 81 MG PO SCH (08:41)
[2023-06-10] MEDS: POTASSIUM CHLORIDE ER 20 MEQ TAB.ER PO SCH (08:41)
[2023-06-10] MEDS: DAPAGLIFLOZIN PROPANEDIOL 10 MG TABLET PO SCH (08:42)
[2023-06-10] MEDS: HYDROmorphone 1 MG/ML 1 ML SYRINGE IVP PRN (08:46)
[2023-06-10] MEDS: diphenhydrAMINE 25 MG CAP PO PRN (09:30)
[2023-06-10] MEDS: SODIUM CHLORIDE 0.9% 1,000 ML IV SCH (09:35)
[2023-06-10] MEDS: MORPHINE SULFATE IR 15 MG TABLET PO SCH (10:39)
--- NOTE | 2023-06-10 10:58 | P.PN ---
Subjective Patient is seen in follow-up for acute kidney injury on chronic kidney disease. Renal function stable. On oral diuretics. Admits to good urine output. Oral intake is good. Vital signs are stable. General: No acute distress. HEENT: Head exam is unremarkable. LUNGS: No audible rhonchi or wheezes. HEART: Rate and Rhythm are regular. ABDOMEN: Nontender. EXTREMITITES: Left lower extremity erythema noted. Right lower christine developed. 1+ edema. Objective - Vital Signs Vital signs: Vital Signs Temp 98.5 F 06/10/23 07:25 Pulse 92 06/10/23 07:25 Resp 20 06/10/23 07:25 BP 116/84 06/10/23 07:25 Pulse Ox 96 06/10/23 07:25 FiO2 Intake & Output 06/09/23 06/10/23 06/10/23 18:59 06:59 18:59 Other: Voiding Method Toilet Toilet - Labs CBC & Chem 7: 06/09/23 06:29 06/10/23 07:30 Labs: Abnormal Lab Results - Last 24 Hours (Table) 06/09/23 06/09/23 06/09/23 Range/Units 11:26 17:24 20:21 Carbon Dioxide (22-30) mmol/L BUN (9-20) mg/dL Creatinine (0.66-1.25) mg/dL POC Glucose (mg/dL) 135 H 174 H 163 H (70-110) mg/dL 06/10/23 Range/Units 07:30 Carbon Dioxide 19 L (22-30) mmol/L BUN 95 H (9-20) mg/dL Creatinine 2.23 H (0.66-1.25) mg/dL POC Glucose (mg/dL) (70-110) mg/dL Microbiology - Last 24 Hours (Table) 06/04/23 23:14 Blood Culture - Final Blood 06/04/23 23:14 Blood Culture - Final Blood Assessment and Plan Plan: Assessment: 1. Acute kidney injury secondary to ATN secondary to cardiorenal syndrome. Creatinine 2.23. Nonoliguric. UA benign. No hydronephrosis noted on ultrasound done April 2023. 2. Chronic kidney disease stage IIIB with baseline creatinine near 2 secondary to cardiorenal syndrome. 3. Acute on chronic systolic CHF with ejection fraction of less than 20% with moderate to severe mitral regurgitation, moderate tricuspid regurgitation and severe pulmonary hypertension. 4. Right foot wound/ulcer maintained on antibiotics. ID following. 5. Metabolic acidosis secondary to chronic kidney disease. Plan: Maintain oral diuretics. Maintain farxiga. Low-salt diet and 1500 mL fluid restriction. Add oral bicarb. Avoid nephrotoxins. Patient advised to monitor his weight closely at home and to notify physician if develops worsening edema or week and a fourth and 3 pounds in 1 week duration. Follow-up outpatient in 1 week post discharge.
[2023-06-10 11:23] LABS: Glucose,Whole Blood 85 mg/dL (70-110)
--- NOTE | 2023-06-10 12:08 | P.PN ---
Subjective Progress Note Date: 06/10/23 HISTORY OF PRESENT ILLNESS: This is a 52-year-old male with a past medical history significant for nonischemic cardiomyopathy, AICD implantation, nonsustained ventricular tachycardia, hypertension, hyperlipidemia, COPD, nicotine dependence, diabetes and right-sided foot diabetic ulcer. Patient follows in the office with Dr. Abbasi. We have been asked to see the patient in consultation for preoperative clearance. Patient examined at the bedside. Patient has been evaluated by vas cular surgery with recommendations for right-sided [id number] amputation. At the time of examination, patient states he is declining to proceed with amputation. The patient currently denies any chest pain or pressure. He denies any shortness of breath. Blood pressure 100/70. Heart rate around 100. * EKG reveals sinus mechanism with heart rate of 110. * Chest xray mild cardiomegaly and interstitial density. Correlate for CHF with pulmonary vascular congestion. Interstitial pneumonitis or atypical pneumonia would be an alternative consideration. * Current home cardiac medications include Aldactone 25 mg twice a day, Imdur 30 mg daily, Bumex 2 mg twice a day, atorvastatin 40 mg daily, aspirin 81 mg daily, and Midodrine 5mg BID * Most recent echocardiogram obtained in June 2022 revealed ejection fraction less than 20%, severe pulmonary hypertension, moderate to severe mitral regurgitation, moderate tricuspid regurgitation * Cardiac catheterization history: February 2018 revealing minimal coronary artery disease 06/07/2023 Patient examined this morning at the bedside. Patient denies chest pain or pressure. He denies shortness of breath. He states the pain in his right foot has improved compared to yesterday. He is still declining to proceed with ampu tation. Patient's blood pressure is improved today with a reading of 122/72. 06/08/2023 Patient examined this morning at the bedside. Patient denies chest pain or pressure. He denies shortness of breath. Patient reports decreased pain in his right foot. He continues to refuse amputation. He remains on IV antibiotics. Blood pressure is stable with a systolic in the [id number]. 06/10 Plan is that patient will be discharged home today with IV antibiotics. Patient denies any pain in his foot, no chest pain or shortness of breath at rest. He follows normally with Dr. Yared Abbasi in the office. Heart rate has been in the 80s, blood pressure 116/84, pulse ox 96% on room air. Repeat blood work reveals BUN of 95 creatinine 2.23. PHYSICAL EXAM: VITAL SIGNS: Reviewed. GENERAL: Well-developed in no acute distress. HEENT: Head is normocephalic. Pupils are equal, round. Sclerae anicteric. Mucous membranes of the mouth are moist. Neck supple. No JVD or thyromegaly LUNGS: Respirations even and unlabored. Lungs essentially clear to auscultation bilaterally. HEART: Regular rate and rhythm. S1 and S2 heard. Systolic murmur noted. ABDOMEN: Soft. Nondistended. Nontender. EXTREMITIES: Normal range of motion. No clubbing or cyanosis. Peripheral pu lses intact. 1+ bilateral lower extremity edema. Fredy wrap noted to right lower extremity. NEUROLOGIC: Awake and alert. Oriented x 3. ASSESSMENT: Right diabetic foot ulcer Recent hospitalization for acute CHF Nonischemic cardiomyopathy History of AICD implantation Chronic heart failure with reduced ejection fraction, currently euvolemic History of nonsustained ventricular tachycardia Hyperlipidemia Diabetes Chronic kidney disease Nicotine dependence History of medication noncompliance Hypotension, maintained on Midodrine outpatient PLAN: Continue current cardiac medications Unable to tolerate FREDY/ARB secondary to soft blood pressures requiring Midodrine Patient is at intermediate to high risk to undergo surgery from a cardiac standpoint. There are no absolute contraindications for patient to proceed. However at the time of our examination, the patient is refusing to proceed with amputation. Patient is currently stable for discharge from a cardiac standpoint Cardiology will sign off this case and follow on an as-needed basis. Please re consult for any new concerns. Patient may follow-up in the office in one to [address] Yared Abbasi. Nurse practitioner note has been reviewed by physician. Signing provider agrees with the documented findings, assessment, and plan of care. Objective - Vital Signs Vital signs: Vital Signs Temp 98.5 F 06/10/23 07:25 Pulse 92 06/10/23 07:25 Resp 20 06/10/23 07:25 BP 116/84 06/10/23 07:25 Pulse Ox 96 06/10/23 07:25 FiO2 Intake & Output 06/09/23 06/10/23 06/10/23 18:59 06:59 18:59 Other: Voiding Method Toilet Toilet - Labs CBC & Chem 7: 06/09/23 06:29 06/10/23 07:30 Labs: Abnormal Lab Results - Last 24 Hours (Table) 06/09/23 06/09/23 06/09/23 Range/Units 11:26 17:24 20:21 Carbon Dioxide (22-30) mmol/L BUN (9-20) mg/dL Creatinine (0.66-1.25) mg/dL POC Glucose (mg/dL) 135 H 174 H 163 H (70-110) mg/dL 06/10/23 Range/Units 07:30 Carbon Dioxide 19 L (22-30) mmol/L BUN 95 H (9-20) mg/dL Creatinine 2.23 H (0.66-1.25) mg/dL POC Glucose (mg/dL) (70-110) mg/dL Microbiology - Last 24 Hours (Table) 06/04/23 23:14 Blood Culture - Final Blood 06/04/23 23:14 Blood Culture - Final Blood
--- NOTE | 2023-06-10 12:32 | P.PN ---
Subjective Progress Note Date: 06/10/23 Principal diagnosis: Right diabetic foot and osteomyelitis Patient is a 52-year-old male with a past medical history significant for diabetes mellitus patient did have extensive right heel diabetic foot infection with underlying osteomyelitis with a recent admission to the hospital patient is status post debridement and culture positive for Proteus providentia anaerobes and Acinetobacter, patient did get a PICC line and was advised a 6- week course of IV Zosyn, patient now presenting back to the hospital with weakness unable to sleep and unable to infuse his antibiotics per advise of his home care nurse. On today's evaluation that is 06/10/2023, the patient continues to be afebrile , the patient is not requiring any supplemental oxygen and is breathing comforta geovanny on room air , the patient denies any chest pain no cough or sputum production, patient denies Abdominal pain and denies any nausea/vomiting/no diarrhea has been reported, the patient denies pain to the right heel wound area Patient did have a creatinine is 2.23 , no CBC done today Objective - Vital Signs Vital signs: Vital Signs Temp 98.5 F 06/10/23 07:25 Pulse 92 06/10/23 07:25 Resp 20 06/10/23 07:25 BP 116/84 06/10/23 07:25 Pulse Ox 96 06/10/23 07:25 FiO2 Intake & Output 06/09/23 06/10/23 06/10/23 18:59 06:59 18:59 Other: Voiding Method Toilet Toilet - Exam GENERAL DESCRIPTION: Middle-age male up in bed in no distress RESPIRATORY SYSTEM: Unlabored breathing , clear to auscultation anteriorly HEART: S1 S2 regular rate and rhythm , ABDOMEN: Soft , no tenderness EXTREMITIES: Right foot wound is currently dressed - Labs CBC & Chem 7: 06/09/23 06:29 06/10/23 07:30 Labs: Abnormal Lab Results - Last 24 Hours (Table) 06/09/23 06/09/23 06/10/23 Range/Units 17:24 20:21 07:30 Carbon Dioxide 19 L (22-30) mmol/L BUN 95 H (9-20) mg/dL Creatinine 2.23 H (0.66-1.25) mg/dL POC Glucose (mg/dL) 174 H 163 H (70-110) mg/dL Microbiology - Last 24 Hours (Table) 06/04/23 23:14 Blood Culture - Final Blood 06/04/23 23:14 Blood Culture - Final Blood Assessment and Plan (1) Chronic ulcer of right foot with fat layer exposed Current Visit: Yes Status: Acute Code(s): L97.512 - NON-PRS CHRONIC ULCER OTH PRT RIGHT FOOT W FAT LAYER EXPOSED SNOMED Code(s): 75224813527272047 (2) Foot osteomyelitis, right Current Visit: Yes Status: Acute Code(s): M86.9 - OSTEOMYELITIS, UNSPECIFIED SNOMED Code(s): 8670371391376921 Plan: 1patient with a chronic nonhealing wound to the right heel area concerning for acute on chronic osteomyelitis culture was positive predominantly with gram- negative pathogen on his last visit , including Proteus Providencia Acinetobacter strep and anaerobes, patient presented back to the hospital with generalized not feeling well unable to take care of himself at home and infuses antibiotics 2-patient with renal insufficiency high risk of nephrotoxicity 3-patient has refused amputation even though the chances of healing of this wound on the are on lower side, because of extensive wound and noncompliance 4-patient remains to be afebrile, the patient did have a normal white count, patient to continue with Zosyn to finish a 6 week course of therapy and local wound care per his surgeon Dictation was produced using [employer] dictation software. please excuse any grammatical, word or spelling errors. Time with Patient: Less than 30
--- NOTE | 2023-06-10 14:50 | P.DS ---
Providers Date of admission: 06/04/23 23:43 Expected date of discharge: 06/10/23 Attending physician: Buck Johnson Consults: 06/04/23 23:42 Consult Physician Routine Consulting Provider: Martin Kaur Consult Reason/Comments: ulcer Do you want consulting provider notified?: Yes Consult Physician Routine Consulting Provider: Yesenia Santoyo Consult Reason/Comments: ulcer Do you want consulting provider notified?: Yes 06/05/23 20:59 Consult Physician Routine Consulting Provider: lCiff Abbasi Consult Reason/Comments: Preop clearance Do you want consulting provider notified?: Yes Consult Physician Routine Consulting Provider: Kalani Castellanos Consult Reason/Comments: Renal failure Do you want consulting provider notified?: Yes Primary care physician: [facility] Course: Chief Complaint: foot abscess This is a 52-year-old patient, follows with Dr. Rodríguez. Chronic stable medical condition include CHF EF less than 20%, COPD, diabetes mellitus type 2, hypertension, hyperlipidemia, obstructive sleep apnea, anxiety, AICD, lower extremity venous insufficiency. Patient had lower extremity wounds and has been followed by ID and Dr. Lugo from vascular. Patient recently in the hospital from May 14 through May 29. Patient had worsening wound after right foot. She has been told multiple times to Dr. Lugo to proceed with amputation. Last admission he also was on IV Bumex drip and dobutamine drip for congestive heart failure. Was discharged home on antibiotics. Patient now presents here to again with worsening wound. malodorous drainage. Denies fever and chills. Tired. June 06: Patient is now reluctant to proceed for surgery. He knows that he needs it but is just not ready. I did explain to him that antibiotics will not help at all. This was discussed with also ID. Also yesterday evening with the vascular surgery Dr. Lugo. Eating well. June 07: On IV Zosyn. Some bump in creatinine. Being followed by nephrology. Patient does not want to go to rehab anymore. Wants to go home. Discussed with ID. Patient be discharged and Zosyn. June 08: Eating well. On oral Bumex. Creatinine been followed. Wound care. June 09: No new changes. Continue current medications. IV Zosyn. Discussed patient. Home tomorrow. June 10: Discussed with ID. Stable for discharge. Continue current medications. Patient completed Zosyn IV Zosyn per ID. Follow-up with infectious disease, Dr. Lugo of the wound care center and nephrology. Outpatient labs. Social history: Lives with his 20-year-old son. Disabled. 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 Smoking 2 packs a day for most of his life . Stop drinking heavy alcohol about 20 years ago. Has done marijuana. Physical examination: VITAL SIGNS: 98.5, 92, 20, 11 6 x 84, 96% room air GENERAL: comfortable EYES: Pupils equal. Conjunctiva normal. HEENT: External appearance of nose and ears normal, oral cavity grossly normal. NECK: JVD unable to assess; masses not palpable. HEART: First and second heart sounds are normal; some edema LUNGS: Respiratory rate normal; diminished breath sounds ABDOMEN: Soft, nontender, liver spleen not palpable, no masses palpable. PSYCH: Alert and oriented x3; mood and affect anxious. NEUROLOGICAL: Cranial nerves grossly intact. No facial asymmetry DERMATOLOGICAL: Right foot wound. Details in nursing notes. INVESTIGATIONS, reviewed in the clinical context: June 10: Creatinine 2.23 potassium 4.9 June 09: Hemoglobin 11.4 June 08: Creatinine 2.39 June 07: Creatinine 2.27 June 05: White count 10.8 hemoglobin 11.6 platelets 218 sodium 129 potassium 4.0 BUN 82 creatinine 2.03 June 04: White count 14 hemoglobin 11.9 platelets 226 sodium 127 potassium 4.3 BUN 93 creatinine 1.78 EKG tracing personally reviewed by me-sinus tachycardia. Nonspecific ST-T wave changes. Right foot x-ray: No acute fracture dislocation. Osteotomy of the fifth metatarsal and mid diaphysis. Previous labs from last admission May 28: Potassium 3.9 and 116 creatinine 2.60 Wound culture: Proteus vulgaris. Streptococcus agalactiae group B Assessment and plan: -Acute on chronic recurrent right lower leg cellulitis, infected right heel diabetic ulcer with prior history of debridement. Has been told for amputation before. Not improving Wound swab for Gram stain and culture. Proteus vulgaris, Streptococcus agalactiae group B from last admission IV Zosyn is received from last admission.-Continued-to complete for a total of 6 weeks Patient has not healed with antibiotics and debridement alone. Does need amputation as discussed previously with Dr. Lugo. This was reinforced at length with the patient. patient accepts that he needs to amputation but not ready for the same. -chronic congestive heart failure nonischemic cardiomyopathy systolic dysfunction EF less than 20%: Stabilized Bumex 2 mg twice a day. Aldactone 25 mg a day AICD. Fluid restriction Being followed by cardiology and nephrology - COPD in a previous smoker Ventolin. -Diabetes mellitus type 2 chronically on insulin, uncontrolled with [id number] Levemir 35 units subcu daily . Diabetic diet. Accu-Cheks and sliding scale DC NovoLog -Hyperlipidemia Lipitor -Chronic kidney disease stage III from diabetic nephropathy and nephrosclerosis Baseline creatinine of 1.2 on May 14. -Acute kidney injury likely ATN from cardiorenal syndrome : Follow renal function. Nephrology following -Hyponatremia Fluid restriction -Essential hypertension Toprol XL 25 mg a day -Obstructive sleep apnea sometimes uses CPAP machine -Diabetic peripheral neuropathy -Anxiety Ativan when necessary -DJD Tylenol when necessary -AICD -Lower extremity chronic venous insufficiency -Full code Disposition: Home Labs: CBC BMP: 3 days Patient Condition at Discharge: Fair Plan - Discharge Summary Discharge Rx Participant: Yes New Discharge Prescriptions: New Dapagliflozin Propanediol [Farxiga] 10 mg PO DAILY #30 tab Metoprolol Succinate (ER) [Toprol XL] 25 mg PO DAILY #30 tab Continue Morphine Sulfate Ir [MSIR] 30 mg PO QID INSULIN LISPRO (humaLOG) [humaLOG] 5 - 10 unit SQ ACHS PRN PRN Reason: HIGH BLOOD SUGAR DULoxetine HCL [Cymbalta] 60 mg PO BID Zolpidem [Ambien] 10 mg PO HS PRN PRN Reason: Insomnia Cyclobenzaprine [Flexeril] 10 mg PO QID Piperacillin-Tazobactam [Zosyn] 3.375 gm IVPB Q8HR #120 each Aspirin 81 mg PO DAILY tab Nicotine 14Mg/24Hr Patch [Habitrol] 1 patch TRANSDERM DAILY #14 patch Potassium Chloride ER [K-Dur 20] 20 meq PO DAILY #30 tab Midodrine [ProAmatine] 5 mg PO AC-TID #100 tab SILVER sulfADIAZINE CREAM [Silvadene Cream] 1 applic TOPICAL BID Albuterol Inhaler [Ventolin Hfa Inhaler] 2 puff INHALATION RT-QID PRN PRN Reason: Shortness Of Breath Bumetanide [BUMEX] 2 mg PO BID #120 tab Atorvastatin [Lipitor] 40 mg PO DAILY #30 tab Changed Spironolactone [Aldactone] 25 mg PO DAILY #60 tab Insulin Glargine,Hum.rec.anlog [Toujeo Solostar] 28 units SQ DAILY #0 Discontinued Isosorbide Mononitrate ER [Imdur] 30 mg PO DAILY #30 tab Discharge Medication List Albuterol Inhaler [Ventolin Hfa Inhaler] 2 puff INHALATION RT-QID PRN 07/06/22 [History] INSULIN LISPRO (humaLOG) [humaLOG] 5 - 10 unit SQ ACHS PRN 07/06/22 [History] Morphine Sulfate Ir [MSIR] 30 mg PO QID 07/06/22 [History] DULoxetine HCL [Cymbalta] 60 mg PO BID 11/18/22 [History] Cyclobenzaprine [Flexeril] 10 mg PO QID 05/14/23 [History] Zolpidem [Ambien] 10 mg PO HS PRN 05/14/23 [History] Piperacillin-Tazobactam [Zosyn] 3.375 gm IVPB Q8HR #120 each 05/22/23 [Rx] Aspirin 81 mg PO DAILY tab 05/29/23 [Rx] Atorvastatin [Lipitor] 40 mg PO DAILY #30 tab 05/29/23 [Rx] Bumetanide [BUMEX] 2 mg PO BID #120 tab 05/29/23 [Rx] Midodrine [ProAmatine] 5 mg PO AC-TID #100 tab 05/29/23 [Rx] Nicotine 14Mg/24Hr Patch [Habitrol] 1 patch TRANSDERM DAILY #14 patch 05/29/23 [Rx] Potassium Chloride ER [K-Dur 20] 20 meq PO DAILY #30 tab 05/29/23 [Rx] SILVER sulfADIAZINE CREAM [Silvadene Cream] 1 applic TOPICAL BID 06/04/23 [History] Dapagliflozin Propanediol [Farxiga] 10 mg PO DAILY #30 tab 06/10/23 [Rx] Insulin Glargine,Hum.rec.anlog [Toujeo Solostar] 28 units SQ DAILY #0 06/10/23 [Rx] Metoprolol Succinate (ER) [Toprol XL] 25 mg PO DAILY #30 tab 06/10/23 [Rx] Spironolactone [Aldactone] 25 mg PO DAILY #60 tab 06/10/23 [Rx] Follow up Appointment(s)/Referral(s): Kalani Castellanos MD [STAFF PHYSICIAN] - 10 Days (Please call to schedule appointment ) Hany Rodríguez MD [Primary Care Provider] - 1-2 days (Please call office to schedule appointment ) [facility], [NON-[facility] - As Needed [facility], [REFERRING] - As Needed Yesenia Santoyo MD [STAFF PHYSICIAN] - 2 Weeks (please call office to schedule appointment) Activity/Diet/Wound Care/Special Instructions: f/u with dr kaur - wound care center cbc/bmp - 3 day Discharge Disposition: HOME WITH HOME HEALTH SERVICES
--- NOTE | 2023-06-12 16:51 | CDI ---
Documentation Clarification Form Date: 06/12/2023 04:09:36 PM From: Janneth Barger RN, CCDS Email: [email or web address] Admit Date: 06/04/2023 11:43:00 PM Patient Name: Ezequiel Haynes Visit Number: [id number] Discharge Date: 06/10/2023 12:53:00 PM ATTENTION: The Clinical Documentation Specialists (CDI) and [facility] Coding Staff appreciate your assistance in clarifying documentation. Please respond to the clarification below the line at the bottom and electronically sign. The CDI & [facility] Coding staff will review the response and follow-up if needed. Please note: Queries are made part of the Legal Health Record. If you have any questions, please contact the author of this message via ITS. Dr. Buck Johnson The patient had infected right heel diabetic ulcer, tachycardia and elevated white count. Based on this information and the findings below, is there an additional diagnosis that is clinically appropriate for this patient? History/Risk Factors: CHF EF less than 20%, COPD, diabetes mellitus type 2, HTN, HLD, KAMINI, anxiety, AICD, lower extremity venous insufficiency, debridement and recently in the hospital from May 14 through May with worsening wound of right foot. Presents again with worsening wound with malodorous drainage. Admitted with acute on chronic recurrent right lower leg cellulitis and infected right heel diabetic ulcer. Clinical Indicators: 06/04 WBC: 14.0 06/04 Vital signs: HR 116-108, BP 93/62 06/04 right foot xray: Osteotomy of the fifth metatarsal mid diaphysis. ED: "generalized body aches and pains and severe pain throughout his body ." H&P: "EKG tracing-sinus tachycardia. Acute on chronic recurrent right lower leg cellulitis, infected right heel diabetic ulcer with prior history of debridement. 06/05 ID consult: "Right heel wound with the bone exposed some slough tissue no foul-smelling drainage." 06/05 Surgery consult: "patient will need a major amputation but he is refusing." Treatment: 0.9 NS @75mL/hr on 06/04 ID Consult: as above Antibiotics: IV Rocephin 2gm x1 on 06/04; IV Zosyn 3.375gm Q8H 06/05-06/10; IV Vancomycin 1500mg x2 on 06/05 Is there an additional diagnosis that is clinically appropriate for this patient? [ + ] Sepsis, present on admission [ ] No additional diagnosis [ ] Other, please specify [ ] Unable to determine SIRS Criteria: 2 or more of the following may indicate SIRS Temperature < 96.8F (36C) or > 101.0F (38.3C) Heart Rate > 90 bpm Respiratory Rate > 20 breaths/min or PaCO2 < 32 mmHg White Blood Cell Count > 12,000 or < 4,000 cells/mm3 or > 10% bands MTDD
== END 2023-06-10 12:53 | disposition home health service (06) | DRG 871 ==
LOC: EC 20:09 → 4SSUR 23:43
PROVIDERS: ADMIT Hospitalist; ATTEND Hospitalist
DX: A41.9 Sepsis, unspecified organism (principal); N17.0 Acute kidney failure with tubular necrosis; E87.1 Hypo-osmolality and hyponatremia; I13.0 Hypertensive heart and chronic kidney disease with heart failure and stage 1 through stage 4 chronic kidney disease, or unspecified chronic kidney disease; I50.22 Chronic systolic (congestive) heart failure; L02.612 Cutaneous abscess of left foot; L03.115 Cellulitis of right lower limb; M86.171 Other acute osteomyelitis, right ankle and foot; L97.419 Non-pressure chronic ulcer of right heel and midfoot with unspecified severity; E87.20 Acidosis, unspecified; E11.69 Type 2 diabetes mellitus with other specified complication; L97.512 Non-pressure chronic ulcer of other part of right foot with fat layer exposed; I27.20 Pulmonary hypertension, unspecified; I08.1 Rheumatic disorders of both mitral and tricuspid valves; B96.83 Acinetobacter baumannii as the cause of diseases classified elsewhere; E11.649 Type 2 diabetes mellitus with hypoglycemia without coma; E11.22 Type 2 diabetes mellitus with diabetic chronic kidney disease; E11.42 Type 2 diabetes mellitus with diabetic polyneuropathy; E11.621 Type 2 diabetes mellitus with foot ulcer; E11.65 Type 2 diabetes mellitus with hyperglycemia; B96.4 Proteus (mirabilis) (morganii) as the cause of diseases classified elsewhere; N18.32 Chronic kidney disease, stage 3b; J44.9 Chronic obstructive pulmonary disease, unspecified; E78.5 Hyperlipidemia, unspecified; G47.33 Obstructive sleep apnea (adult) (pediatric); F17.210 Nicotine dependence, cigarettes, uncomplicated; F41.9 Anxiety disorder, unspecified; F90.9 Attention-deficit hyperactivity disorder, unspecified type; R00.0 Tachycardia, unspecified; I25.10 Atherosclerotic heart disease of native coronary artery without angina pectoris; I25.2 Old myocardial infarction; I25.5 Ischemic cardiomyopathy; I87.2 Venous insufficiency (chronic) (peripheral); M19.90 Unspecified osteoarthritis, unspecified site; Z79.4 Long term (current) use of insulin; Z79.899 Other long term (current) drug therapy; Z79.82 Long term (current) use of aspirin; Z91.148 Patient's other noncompliance with medication regimen for other reason; Z95.810 Presence of automatic (implantable) cardiac defibrillator; Z88.1 Allergy status to other antibiotic agents; Z88.8 Allergy status to other drugs, medicaments and biological substances; Z86.14 Personal history of Methicillin resistant Staphylococcus aureus infection; Z98.1 Arthrodesis status; Z90.49 Acquired absence of other specified parts of digestive tract
CPT/HCPCS: 36415; 71046; 80048; 80053; 81001; 82009; 82565; 83605; 83735; 84100; 85025; 85610; 85730; 86140; 87040; 93005; 96365; 96366; 96367; 96368; 96375; 96376; 99285

== ENCOUNTER 2023-06-15 14:33 | Inpatient (IN) | payer MEDICARE, OTHER ==
[2023-06-15 16:05] LABS: Anisocytosis Slight; Basophils # (A) 0.1 k/uL (0-0.2); Basophils % (A) 0 %; Eosinophils # (A) 0.3 k/uL (0-0.7); Eosinophils % (A) 2 %; HCT 35.7 % (39.0-53.0); HGB 11.6 gm/dL (13.0-17.5); Hypochromasia Slight; Lymphocytes # (A) 1.4 k/uL (1.0-4.8); Lymphocytes % (A) 9 %; MCHC 32.4 g/dL (31.0-37.0); MCV 89.3 fL (80.0-100.0); Mean Platelet Volume 10.6; Monocytes # (A) 0.8 k/uL (0-1.0); Monocytes % (A) 5 %; Neutrophils % (A) 82 %; Platelet Count 217 k/uL (150-450); RDW 16.2 % (11.5-15.5); VBG PH 7.37 (7.31-7.41); WBC 15.9 k/uL (3.8-10.6)
[2023-06-15 16:06] LABS: Glucose,Whole Blood 280 mg/dL (70-110)
[2023-06-15] MEDS ORDERED: BACITRACIN OINT 1 EACH PACKET TOPICAL ONE (16:14)
[2023-06-15 16:25] LABS: Appearance,Urine Clear (Clear); Bilirubin,Urine Negative (Negative); Blood,Urine Negative (Negative); Color,Urine Yellow; Glucose,Urine (UA) 4+ (Negative); Ketones,Urine Negative (Negative); Leukocyte Esterase,Urine Negative (Negative); Nitrite,Urine Negative (Negative); PH, Urine 5.5 (5.0-8.0); Protein,Urine Trace (Negative); Specific Gravity,Urine 1.019 (1.001-1.035); Urobilinogen,Urine <2.0 mg/dL (<2.0)
[2023-06-15 16:35] LABS: Cocaine Screen,Urine Not Detected (NotDetected); Phencyclidine Screen,Urine Not Detected (NotDetected); Urn Cannabinoid Scrn Detected (NotDetected)
[2023-06-15 16:36] LABS: Amphetamine Screen,Urine Not Detected (NotDetected); Barbiturate Screen,Urine Not Detected (NotDetected); Benzodiazepines Screen,Urine Not Detected (NotDetected); Methadone Screen, Urine Not Detected (NotDetected); Opiate Screen,Urine Detected (NotDetected); Oxycodone Screen, Urine Not Detected (NotDetected); Tricyclic Antidepressant,Urine Detected (NotDetected)
[2023-06-15 16:37] LABS: INR 1.4 (<1.2); Lactic Acid, Venous 1.9 mmol/L (0.7-2.0); Partial Thromboplastin Time 24.3 sec (22.0-30.0); Prothrombin Time 14.6 sec (10.0-12.5)
--- NOTE | 2023-06-15 16:45 | XR ---
EXAMINATION TYPE: XR chest 2V DATE OF EXAM: 06/15/2023 COMPARISON: 06/09/2023 HISTORY: Altered mental status TECHNIQUE: Frontal and lateral views of the chest are obtained. FINDINGS: There is a single lead cardiac pacemaker. There is moderate cardiomegaly. There is mild to moderate p ulmonary congestion. There is no airspace/consolidative opacity. There is no pleural effusion or pneumothorax. The osseous structures are intact. IMPRESSION: Findings most consistent with mild CHF.
--- NOTE | 2023-06-15 16:49 | XR ---
Right foot limited. HISTORY: Rule out osteomyelitis. COMPARISON: 06/04/2023. TECHNIQUE: 2 views right foot were obtained. These: There are postsurgical changes involving the right fifth metatarsal and MTP joint, stable compared to previous. There is suggestion of a cortical defect in the region of the posterior plantar surface of the calcaneus near the attachment of the plantar fascia. The possibility of a focal osteomyelitis ca nnot be excluded. Remaining osseous structures are intact. There is no fracture or dislocation. IMPRESSION: 1. Cannot exclude focal osteomyelitis of the posterior plantar calcaneus as described above. 2. Postsurgical changes involving the fifth metatarsal and fifth MTP joint, stable compared to previo us.
--- NOTE | 2023-06-15 17:04 | CT ---
EXAMINATION TYPE: CT brain wo con DATE OF EXAM: 06/15/2023 COMPARISON: 08/17/2014 HISTORY: Per son, pt woke up AMS. CT DLP: 1152.4 mGycm Automated exposure control for dose reduction was used. FINDINGS: There is a remote cortical and subcortical infarct in the left frontal region with mild ex vacuo dila tation of the anterior horn of the left lateral ventricle There is a large remote infarct of the left cerebellum. There is no mass effect or shift of the midline structures. There is no acute intra or extra-axial hemorrhage. Intraorbital contents appear normal and symmetric. Visualized paranasal sinuses and mastoid air cells are well aerated. IMPRESSION: 1. No acute bleed or mass effect. 2. 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 IMPRESSION:
[2023-06-15 17:39] LABS: ALT 51 U/L (4-49); AST 38 U/L (17-59); African American GFR (CKD) 52 (>60 ml/min/1.73 sqM); Albumin 4.1 g/dL (3.5-5.0); Alcohol <10 mg/dL; Alkaline Phosphatase 202 U/L (38-126); Anion Gap 12 mmol/L; Blood Urea Nitrogen 53 mg/dL (9-20); Calcium 9.3 mg/dL (8.4-10.2); Carbon Dioxide 23 mmol/L (22-30); Chloride 99 mmol/L (98-107); Glucose 267 mg/dL (74-99); Non-African American GFR(CKD) 45 (>60 ml/min/1.73 sqM); Potassium 4.6 mmol/L (3.5-5.1); Sodium 134 mmol/L (137-145); Total Bilirubin 1.4 mg/dL (0.2-1.3); Total Protein 8.1 g/dL (6.3-8.2)
[2023-06-15 17:47] LABS: NT-Pro-B-Type Natriuretic Pept 18400 pg/mL
[2023-06-15] MEDS ORDERED: FUROSEMIDE 10 MG/ML 4 ML VIAL IV STA (17:47)
[2023-06-15] MEDS ORDERED: VANCOMYCIN IV PER PHARMACY 1 EACH MISC MISCELLANE PRN (17:49)
[2023-06-15] MEDS ORDERED: PIPERACILLIN-TAZOBACTAM 3.375 GM in SODIUM CHLORIDE 0.9% 100 ML IVPB STA (17:54)
[2023-06-15] MEDS ORDERED: NALOXONE 0.4 MG/ML 1 ML VIAL IV PRN (17:56)
[2023-06-15] MEDS ORDERED: VANCOMYCIN 1,500 MG in SODIUM CHLORIDE 0.9% 500 ML 500 ML IVPB STA (17:56)
--- NOTE | 2023-06-15 20:11 | ED ---
General Adult HPI - General Chief complaint: Altered Mental Status Stated complaint: lita Time Seen by Provider: 06/15/23 15:09 Source: patient, EMS, RN notes reviewed, old records reviewed Mode of arrival: EMS Limitations: altered mental status - History of Present Illness Initial comments: Patient is a 52-year-old male presents with the department complaining of shortness of breath. EMS also states the patient's son is concerned that may be slightly more confused than normal. Patient does endorse this. However currently he is alert and oriented 4. Is noncompliant diabetic. Currently has a port in his right arm and is receiving Zosyn via a PICC line for right foot infection. Is a history of heart failure. States he's been having increased work of breathing since discharge from hospital. His no. As any fevers, chills. Has no other acute complaints at this time. Presents for further evaluation of this time. Does endorse worsening exertional dyspnea. Endorses slightly worsening lower extremity edema. Denies orthopnea. States he is compliant with medications, however charts state that he has noncompliant with some meds in the past. - Related Data Home Medications Medication Instructions Recorded Confirmed Albuterol Inhaler [Ventolin Hfa 2 puff INHALATION RT-QID PRN 07/06/22 06/15/23 Inhaler] INSULIN LISPRO (humaLOG) [humaLOG] 5 - 10 unit SQ ACHS PRN 07/06/22 06/15/23 Morphine Sulfate Ir [MSIR] 30 mg PO QID 07/06/22 06/15/23 DULoxetine HCL [Cymbalta] 60 mg PO BID 11/18/22 06/15/23 Cyclobenzaprine [Flexeril] 10 mg PO QID 05/14/23 06/15/23 Zolpidem [Ambien] 10 mg PO HS PRN 05/14/23 06/15/23 SILVER sulfADIAZINE CREAM 1 applic TOPICAL BID 06/04/23 06/15/23 [Silvadene Cream] Previous Rx's Medication Instructions Recorded Piperacillin-Tazobactam [Zosyn] 3.375 gm IVPB Q8HR #120 each 05/22/23 Aspirin 81 mg PO DAILY tab 05/29/23 Atorvastatin [Lipitor] 40 mg PO DAILY #30 tab 05/29/23 Bumetanide [BUMEX] 2 mg PO BID #120 tab 05/29/23 Midodrine [ProAmatine] 5 mg PO AC-TID #100 tab 05/29/23 Nicotine 14Mg/24Hr Patch [Habitrol] 1 patch TRANSDERM DAILY #14 patch 05/29/23 Potassium Chloride ER [K-Dur 20] 20 meq PO DAILY #30 tab 05/29/23 Dapagliflozin Propanediol [Farxiga] 10 mg PO DAILY #30 tab 06/10/23 Insulin Glargine,Hum.rec.anlog 28 units SQ DAILY #0 06/10/23 [Toujeo Solostar] Metoprolol Succinate (ER) [Toprol 25 mg PO DAILY #30 tab 06/10/23 XL] Spironolactone [Aldactone] 25 mg PO DAILY #60 tab 06/10/23 Allergies Allergy/AdvReac Type Severity Reaction Status Date / Time azithromycin Allergy Anaphylaxis Verified 06/15/23 19:17 gemfibrozil [From Lopid] Allergy Rash/Hives Verified 06/15/23 19:17 Review of Systems ROS Statement: Those systems with pertinent positive or pertinent negative responses have been documented in the HPI. Review of Systems: CONST: Denies fever EYES: Denies blurry vision ENT: Denies nasal congestion C/V: Denies Chest pain RESP: Endorses Shortness of breath GI: Denies abdominal pain : Denies dysuria SKIN: Denies rash. MSK: Endorses chronic wound on right foot NEURO: Denies headache ROS Other: All systems not noted in ROS Statement are negative. Past Medical History Past Medical History: Asthma, Coronary Artery Disease (CAD), Chest Pain / Angina, Heart Failure, COPD, Diabetes Mellitus, GERD/Reflux, Hyperlipidemia, Hypertension, Myocardial Infarction ([place]), Pneumonia, Sleep Apnea/CPAP/BIPAP, Supraventricular Tachycardia (SVT) Additional Past Medical History / Comment(s): Ischemic cardiomyopathy, chronic CHF, SVT, IDDM type II, KAMINI with CPAP occasionally used, chronic cervical/back pain, DJD, diabetic foot wounds x 4 months. Last Myocardial Infarction Date:: 12/11/17 History of Any Multi-Drug Resistant Organisms: MRSA Date of last positivie culture/infection: 03/10/20 MDRO Source:: MRSA TOE Past Surgical History: Adenoidectomy, AICD, Back Surgery, Cholecystectomy, EPS, Heart Catheterization, Pacemaker, Tonsillectomy Additional Past Surgical History / Comment(s): 12/10/17 cardiac cath, previous cardiac cath, 09/02/14 AICD/pacer, EGD/colonoscopy, low back surgery with fusion. Past Anesthesia/Blood Transfusion Reactions: Motion Sickness Additional Past Anesthesia/Blood Transfusion Reaction / Comment(s): Pt states he received blood with back surgery without reaction. Type of Cardiac Device: Permanent Pacemaker, AICD Device Placement Date:: 09-02-14 Past Psychological History: ADD/ADHD, Anxiety Smoking Status: Current every day smoker Past Alcohol Use History: Occasional Past Drug Use History: Marijuana - Past Family History Father Additional Family Medical History / Comment(s): Pt has not kept in close contact with his father for many yrs. Father was an alcoholic and pt believes he has from cirrhosis of the liver. Mother History Unknown: Yes Additional Family Medical History / Comment(s): Pt is not in contact with his mother or his father who he has heard had . General Exam - General Exam Comments Initial Comments: General: Appears in no acute distress. HEAD: Normal with no signs of head trauma. EYES: PERRLA, EOMI, conjunctiva normal, no discharge. ENT: Hearing grossly intact, normal oropharynx. RESPIRATORY: Slight increased work of breathing. No hypoxia. C/V: Regular rate and rhythm. S1 and S2 auscultated, bilateral lower extremity pitting edema, peripheral pulses 2+ and intact throughout ABD: Abd is soft, nontender, nondistended EXT: Normal range of motion, no obvious deformity SKIN: Chronic wound located over the right foot. Granulation tissue present. No obvious focal cellulitis at this time. Currently on antibiotics. NEURO: Alert and oriented 4 at this time. No focal deficits. Limitations: altered mental status Course Vital Signs 06/15/23 06/15/23 06/15/23 14:42 16:05 18:00 Temperature 97.0 F L Pulse Rate 68 103 H 102 H Respiratory 24 28 H 24 Rate Blood Pressure 121/94 105/64 O2 Sat by Pulse 97 98 99 Oximetry 06/15/23 19:12 Temperature Pulse Rate 103 H Respiratory 22 Rate Blood Pressure 108/73 O2 Sat by Pulse 99 Oximetry Medical Decision Making - Medical Decision Making Was pt. sent in by a medical professional or institution (, PA, JUNIOR MARKETING ASSOCIATE, urgent ca re, hospital, or skilled nursing...) When possible be specific @ -No Did you speak to anyone other than the patient for history (EMS, parent, family, police, friend...)? What history was obtained from this source @ -No Did you review nursing and triage notes (agree or disagree)? Why? @ -I reviewed and agree with nursing and triage notes Were old charts reviewed (outside hosp., previous admission, EMS record, old EKG, old radiological studies, urgent care reports/EKG's, skilled nursing records)? Report findings @ -Old charts reviewed Differential Diagnosis (chest pain, altered mental status, abdominal pain women, abdominal pain men, vaginal bleeding, weakness, fever, dyspnea, syncope, headache, dizziness, GI bleed, back pain, seizure, CVA, palpatations, mental health, musculoskeletal)? @ -Differential Dyspnea: Coronary syndrome, arrhythmia, tamponade, asthma, COPD, pulmonary embolism, pneumonia, pneumothorax, pulmonary effusion, anaphylaxis, diabetic ketoacidosis, flailed chest, pulmonary contusion, diaphragmatic rupture, anemia, neuromuscular, this is not meant to be an all-inclusive list. EKG interpreted by me (3pts min.). @ -As above X-rays interpreted by me (1pt min.). @ -Chest x-ray reveals bilateral pulmonary vascular congestion. Right foot x- ray reveals likely chronic findings. CT interpreted by me (1pt min.). @ -CT brain reveals no obvious acute intracranial process. U/S interpreted by me (1pt. min.). @ -None done What testing was considered but not performed or refused? (CT, X-rays, U/S, labs)? Why? @ -None What meds were considered but not given or refused? Why? @ -Considered adding vancomycin to patient's antibiotics therapy regimen however after discussion with patient's admitting physician, Dr. Johnson who is very familiar with the patient and he was just discharged, he recommends only continuing Zosyn at this time. Did you discuss the management of the patient with other professionals (professionals i.e. , PA, JUNIOR MARKETING ASSOCIATE, lab, RT, psych nurse, social scientist, psychological examiner, teacher, mobile patrol officer, watch case polisher)? Give summary @ -No Was smoking cessation discussed for >3mins.? @ -No Was critical care preformed (if so, how long)? @ -No Were there social determinants of health that impacted care today? How? (Homelessness, low income, unemployed, alcoholism, drug addiction, transportation, low edu. Level, literacy, decrease access to med. care, senior living, rehab)? @ -No Was there de-escalation of care discussed even if they declined (Discuss DNR or withdrawal of care, Hospice)? DNR status @ -No What co-morbidities impacted this encounter? (DM, HTN, Smoking, COPD, CAD, Cancer, CVA, ARF, Chemo, Hep., AIDS, mental health diagnosis, sleep apnea, morbid obesity)? @ -None Was patient admitted / discharged? Hospital course, mention meds given and route, prescriptions, significant lab abnormalities, going to OR and other pertinent info. @ -Based on the patient's presentation and physical exam, presents for some confusion but his primary complaint is dyspnea. I'm concerned for possible CHF. We will obtain altered mental status workup intact including CT brain. Patient was in agreement this plan. Vital signs within acceptable limits. EKG shows no signs of acute ischemia. Patient's laboratory studies are remarkable for a leukocytosis of 15. Patient has CK D. BNP is elevated for the patient to 18,000. Troponin is indeterminate. UDS positive for opiates, tricyclics, marijuana. CT brain unremarkable. Chest x-ray shows bilateral pulmonary vascular congestion. Foot x-ray shows possible focal osteomyelitis which is discussed Dr. Johnson he states this is chronic for the patient. On reevaluation, patient is feeling improved. I'm concerned for CHF exacerbation. Patient was started on Lasix. Echo ordered. Cardiology consulted. He will be admitted at this time. After discussion with the admitting physician who accepted the patient, patient will only be continued on Zosyn at this time. Patient was in agreement this plan. Undiagnosed new problem with uncertain prognosis? @ -No Drug Therapy requiring intensive monitoring for toxicity (Heparin, Nitro, Insulin, Cardizem)? @ -No Were any procedures done? @ -No Diagnosis/symptom? @ -CHF exacerbation Acute, or Chronic, or Acute on Chronic? @ -Acute Uncomplicated (without systemic symptoms) or Complicated (systemic symptoms)? @ -Complicated Side effects of treatment? @ -No Exacerbation, Progression, or Severe Exacerbation? @ -Exacerbation Poses a threat to life or bodily function? How? (Chest pain, [place], [place], pneumonia, PE, COPD, DKA, ARF, appy, cholecystitis, CVA, Diverticulitis, Homicidal, S uicidal, threat to staff... and all critical care pts) @ -Possibly, yes Diagnosis/symptom? @ -Chronic right foot wound Acute, or Chronic, or Acute on Chronic? @ -Chronic Uncomplicated (without systemic symptoms) or Complicated (systemic symptoms)? @ -Complicated Side effects of treatment? @ -none Exacerbation, Progression, or Severe Exacerbation] @ -no Poses a threat to life or bodily function? @ -yes - Lab Data Result diagrams: 06/15/23 15:37 06/15/23 17:11 Lab Results 06/15/23 06/15/23 06/15/23 Range/Units 15:37 15:37 15:37 WBC 15.9 H (3.8-10.6) k/uL RBC 4.00 L (4.30-5.90) m/uL Hgb 11.6 L (13.0-17.5) gm/dL Hct 35.7 L (39.0-53.0) % MCV 89.3 (80.0-100.0) fL MCH 29.0 (25.0-35.0) pg MCHC 32.4 (31.0-37.0) g/dL RDW 16.2 H (11.5-15.5) % Plt Count 217 (150-450) k/uL MPV 10.6 Neutrophils % 82 % Lymphocytes % 9 % Monocytes % 5 % Eosinophils % 2 % Basophils % 0 % Neutrophils # 13.0 H (1.3-7.7) k/uL Lymphocytes # 1.4 (1.0-4.8) k/uL Monocytes # 0.8 (0-1.0) k/uL Eosinophils # 0.3 (0-0.7) k/uL Basophils # 0.1 (0-0.2) k/uL Hypochromasia Slight Anisocytosis Slight PT 14.6 H (10.0-12.5) sec INR 1.4 H (<1.2) APTT 24.3 (22.0-30.0) sec VBG pH (7.31-7.41) VBG pCO2 (37-51) mmHg VBG HCO3 (24-28) mmol/L Sodium (137-145) mmol/L Potassium (3.5-5.1) mmol/L Chloride (98-107) mmol/L Carbon Dioxide (22-30) mmol/L Anion Gap mmol/L BUN (9-20) mg/dL Creatinine (0.66-1.25) mg/dL Est GFR (CKD-EPI)AfAm (>60 ml/min/1.73 sqM) Est GFR (CKD-EPI)NonAf (>60 ml/min/1.73 sqM) Glucose (74-99) mg/dL POC Glucose (mg/dL) (70-110) mg/dL POC Glu [place] ID Plasma Lactic Acid Shane (0.7-2.0) mmol/L Calcium (8.4-10.2) mg/dL Total Bilirubin (0.2-1.3) mg/dL AST (17-59) U/L ALT (4-49) U/L Alkaline Phosphatase (38-126) U/L Ammonia (<30) umol/L Troponin I (0.000-0.034) ng/mL NT-Pro-B Natriuret Pep pg/mL Total Protein (6.3-8.2) g/dL Albumin (3.5-5.0) g/dL Urine Color Urine Appearance (Clear) Urine pH (5.0-8.0) Ur Specific [place] (1.001-1.035) Urine Protein (Negative) Urine Glucose (UA) (Negative) Urine Ketones (Negative) Urine Blood (Negative) Urine Nitrite (Negative) Urine Bilirubin (Negative) Urine Urobilinogen (<2.0) mg/dL Ur Leukocyte Esterase (Negative) Urine Opiates Screen Detected H (NotDetected) Ur Oxycodone Screen Not Detected (NotDetected) Urine Methadone Screen Not Detected (NotDetected) Ur Propoxyphene Screen Not Detected (NotDetected) Ur Barbiturates Screen Not Detected (NotDetected) U Tricyclic Antidepress Detected H (NotDetected) Ur Phencyclidine Scrn Not Detected (NotDetected) Ur Amphetamines Screen Not Detected (NotDetected) U Methamphetamines Scrn Not Detected (NotDetected) U Benzodiazepines Scrn Not Detected (NotDetected) Urine Cocaine Screen Not Detected (NotDetected) U Marijuana (THC) Screen Detected H (NotDetected) Serum Alcohol mg/dL Acetone, Qual (Negative) Influenza Type A (PCR) (Not Detectd) Influenza Type B (PCR) (Not Detectd) RSV (PCR) (Not Detectd) SARS-CoV-2 (PCR) (Not Detectd) 06/15/23 06/15/23 06/15/23 Range/Units 15:37 15:37 15:37 WBC (3.8-10.6) k/uL RBC (4.30-5.90) m/uL Hgb (13.0-17.5) gm/dL Hct (39.0-53.0) % MCV (80.0-100.0) fL MCH (25.0-35.0) pg MCHC (31.0-37.0) g/dL RDW (11.5-15.5) % Plt Count (150-450) k/uL MPV Neutrophils % % Lymphocytes % % Monocytes % % Eosinophils % % Basophils % % Neutrophils # (1.3-7.7) k/uL Lymphocytes # (1.0-4.8) k/uL Monocytes # (0-1.0) k/uL Eosinophils # (0-0.7) k/uL Basophils # (0-0.2) k/uL Hypochromasia Anisocytosis PT (10.0-12.5) sec INR (<1.2) APTT (22.0-30.0) sec VBG pH (7.31-7.41) VBG pCO2 (37-51) mmHg VBG HCO3 (24-28) mmol/L Sodium (137-145) mmol/L Potassium (3.5-5.1) mmol/L Chloride (98-107) mmol/L Carbon Dioxide (22-30) mmol/L Anion Gap mmol/L BUN (9-20) mg/dL Creatinine (0.66-1.25) mg/dL Est GFR (CKD-EPI)AfAm (>60 ml/min/1.73 sqM) Est GFR (CKD-EPI)NonAf (>60 ml/min/1.73 sqM) Glucose (74-99) mg/dL POC Glucose (mg/dL) (70-110) mg/dL POC Glu [place] ID Plasma Lactic Acid Shane 1.9 (0.7-2.0) mmol/L Calcium (8.4-10.2) mg/dL Total Bilirubin (0.2-1.3) mg/dL AST (17-59) U/L ALT (4-49) U/L Alkaline Phosphatase (38-126) U/L Ammonia <9 (<30) umol/L Troponin I (0.000-0.034) ng/mL NT-Pro-B Natriuret Pep pg/mL Total Protein (6.3-8.2) g/dL Albumin (3.5-5.0) g/dL Urine Color Yellow Urine Appearance Clear (Clear) Urine pH 5.5 (5.0-8.0) Ur Specific [place] 1.019 (1.001-1.035) Urine Protein Trace H (Negative) Urine Glucose (UA) 4+ H (Negative) Urine Ketones Negative (Negative) Urine Blood Negative (Negative) Urine Nitrite Negative (Negative) Urine Bilirubin Negative (Negative) Urine Urobilinogen <2.0 (<2.0) mg/dL Ur Leukocyte Esterase Negative (Negative) Urine Opiates Screen (NotDetected) Ur Oxycodone Screen (NotDetected) Urine Methadone Screen (NotDetected) Ur Propoxyphene Screen (NotDetected) Ur Barbiturates Screen (NotDetected) U Tricyclic Antidepress (NotDetected) Ur Phencyclidine Scrn (NotDetected) Ur Amphetamines Screen (NotDetected) U Methamphetamines Scrn (NotDetected) U Benzodiazepines Scrn (NotDetected) Urine Cocaine Screen (NotDetected) U Marijuana (THC) Screen (NotDetected) Serum Alcohol mg/dL Acetone, Qual (Negative) Influenza Type A (PCR) Not Detected (Not Detectd) Influenza Type B (PCR) Not Detected (Not Detectd) RSV (PCR) Not Detected (Not Detectd) SARS-CoV-2 (PCR) Not Detected (Not Detectd) 06/15/23 06/15/23 06/15/23 Range/Units 15:37 15:55 17:11 WBC (3.8-10.6) k/uL RBC (4.30-5.90) m/uL Hgb (13.0-17.5) gm/dL Hct (39.0-53.0) % MCV (80.0-100.0) fL MCH (25.0-35.0) pg MCHC (31.0-37.0) g/dL RDW (11.5-15.5) % Plt Count (150-450) k/uL MPV Neutrophils % % Lymphocytes % % Monocytes % % Eosinophils % % Basophils % % Neutrophils # (1.3-7.7) k/uL Lymphocytes # (1.0-4.8) k/uL Monocytes # (0-1.0) k/uL Eosinophils # (0-0.7) k/uL Basophils # (0-0.2) k/uL Hypochromasia Anisocytosis PT (10.0-12.5) sec INR (<1.2) APTT (22.0-30.0) sec VBG pH 7.37 (7.31-7.41) VBG pCO2 44 (37-51) mmHg VBG HCO3 26 (24-28) mmol/L Sodium (137-145) mmol/L Potassium (3.5-5.1) mmol/L Chloride (98-107) mmol/L Carbon Dioxide (22-30) mmol/L Anion Gap mmol/L BUN (9-20) mg/dL Creatinine (0.66-1.25) mg/dL Est GFR (CKD-EPI)AfAm (>60 ml/min/1.73 sqM) Est GFR (CKD-EPI)NonAf (>60 ml/min/1.73 sqM) Glucose (74-99) mg/dL POC Glucose (mg/dL) 280 H (70-110) mg/dL POC Glu [place] ID Kylah Fritz Plasma Lactic Acid Shane (0.7-2.0) mmol/L Calcium (8.4-10.2) mg/dL Total Bilirubin (0.2-1.3) mg/dL AST (17-59) U/L ALT (4-49) U/L Alkaline Phosphatase (38-126) U/L Ammonia (<30) umol/L Troponin I 0.026 (0.000-0.034) ng/mL NT-Pro-B Natriuret Pep pg/mL Total Protein (6.3-8.2) g/dL Albumin (3.5-5.0) g/dL Urine Color Urine Appearance (Clear) Urine pH (5.0-8.0) Ur Specific [place] (1.001-1.035) Urine Protein (Negative) Urine Glucose (UA) (Negative) Urine Ketones (Negative) Urine Blood (Negative) Urine Nitrite (Negative) Urine Bilirubin (Negative) Urine Urobilinogen (<2.0) mg/dL Ur Leukocyte Esterase (Negative) Urine Opiates Screen (NotDetected) Ur Oxycodone Screen (NotDetected) Urine Methadone Screen (NotDetected) Ur Propoxyphene Screen (NotDetected) Ur Barbiturates Screen (NotDetected) U Tricyclic Antidepress (NotDetected) Ur Phencyclidine Scrn (NotDetected) Ur Amphetamines Screen (NotDetected) U Methamphetamines Scrn (NotDetected) U Benzodiazepines Scrn (NotDetected) Urine Cocaine Screen (NotDetected) U Marijuana (THC) Screen (NotDetected) Serum Alcohol mg/dL Acetone, Qual (Negative) Influenza Type A (PCR) (Not Detectd) Influenza Type B (PCR) (Not Detectd) RSV (PCR) (Not Detectd) SARS-CoV-2 (PCR) (Not Detectd) 06/15/23 Range/Units 17:11 WBC (3.8-10.6) k/uL RBC (4.30-5.90) m/uL Hgb (13.0-17.5) gm/dL Hct (39.0-53.0) % MCV (80.0-100.0) fL MCH (25.0-35.0) pg MCHC (31.0-37.0) g/dL RDW (11.5-15.5) % Plt Count (150-450) k/uL MPV Neutrophils % % Lymphocytes % % Monocytes % % Eosinophils % % Basophils % % Neutrophils # (1.3-7.7) k/uL Lymphocytes # (1.0-4.8) k/uL Monocytes # (0-1.0) k/uL Eosinophils # (0-0.7) k/uL Basophils # (0-0.2) k/uL Hypochromasia Anisocytosis PT (10.0-12.5) sec INR (<1.2) APTT (22.0-30.0) sec VBG pH (7.31-7.41) VBG pCO2 (37-51) mmHg VBG HCO3 (24-28) mmol/L Sodium 134 L (137-145) mmol/L Potassium 4.6 (3.5-5.1) mmol/L Chloride 99 (98-107) mmol/L Carbon Dioxide 23 (22-30) mmol/L Anion Gap 12 mmol/L BUN 53 H (9-20) mg/dL Creatinine 1.71 H (0.66-1.25) mg/dL Est GFR (CKD-EPI)AfAm 52 (>60 ml/min/1.73 sqM) Est GFR (CKD-EPI)NonAf 45 (>60 ml/min/1.73 sqM) Glucose 267 H (74-99) mg/dL POC Glucose (mg/dL) (70-110) mg/dL POC Glu [place] ID Plasma Lactic Acid Shane (0.7-2.0) mmol/L Calcium 9.3 (8.4-10.2) mg/dL Total Bilirubin 1.4 H (0.2-1.3) mg/dL AST 38 (17-59) U/L ALT 51 H (4-49) U/L Alkaline Phosphatase 202 H (38-126) U/L Ammonia (<30) umol/L Troponin I (0.000-0.034) ng/mL NT-Pro-B Natriuret Pep 30863 pg/mL Total Protein 8.1 (6.3-8.2) g/dL Albumin 4.1 (3.5-5.0) g/dL Urine Color Urine Appearance (Clear) Urine pH (5.0-8.0) Ur Specific [place] (1.001-1.035) Urine Protein (Negative) Urine Glucose (UA) (Negative) Urine Ketones (Negative) Urine Blood (Negative) Urine Nitrite (Negative) Urine Bilirubin (Negative) Urine Urobilinogen (<2.0) mg/dL Ur Leukocyte Esterase (Negative) Urine Opiates Screen (NotDetected) Ur Oxycodone Screen (NotDetected) Urine Methadone Screen (NotDetected) Ur Propoxyphene Screen (NotDetected) Ur Barbiturates Screen (NotDetected) U Tricyclic Antidepress (NotDetected) Ur Phencyclidine Scrn (NotDetected) Ur Amphetamines Screen (NotDetected) U Methamphetamines Scrn (NotDetected) U Benzodiazepines Scrn (NotDetected) Urine Cocaine Screen (NotDetected) U Marijuana (THC) Screen (NotDetected) Serum Alcohol <10 mg/dL Acetone, Qual Negative (Negative) Influenza Type A (PCR) (Not Detectd) Influenza Type B (PCR) (Not Detectd) RSV (PCR) (Not Detectd) SARS-CoV-2 (PCR) (Not Detectd) - EKG Data -: EKG Interpreted by Me EKG Comments: 12-lead Electrocardiogram Interpretation Note EKG was reviewed and interpreted by myself. 12-lead ECG performed at 1559 is interpreted by me as revealing normal sinus rhythm at a rate of 105 beats per minute. [place] is normal. LA interval is 180 ms, QRS duration is 124 ms, QTc is 412 ms.. There were no ST or T wave abnormalities to suggest myocardial ischemia or injury. R wave progression across the precordium was satisfactory. By my interpretation this EKG is non-diagnostic for acute ischemia. Disposition Clinical Impression: Wound of foot, CHF exacerbation Disposition: ADMITTED IP TO THIS HOSP Condition: Stable Time of Disposition: 17:48
[2023-06-15] MEDS ORDERED: ZOLPIDEM 5 MG TAB PO PRN (20:12)
[2023-06-15] MEDS ORDERED: ALBUTEROL NEBULIZED 2.5 MG/3 ML INHALATION PRN (20:12)
[2023-06-15] MEDS: DULoxetine HCL 60 MG CAPSULE.DR PO SCH (20:41)
[2023-06-15] MEDS ORDERED: MIDODRINE 5 MG TAB PO STA (21:55)
[2023-06-15] MEDS: CYCLOBENZAPRINE 10 MG TAB PO SCH (22:33)
[2023-06-15] MEDS: MORPHINE SULFATE IR 15 MG TABLET PO SCH (23:21)
[2023-06-15] MEDS: PIPERACILLIN-TAZOBACTAM 3.375 GM in SODIUM CHLORIDE 0.9% 100 ML IVPB SCH (23:49)
[2023-06-16 05:17] LABS: Glucose,Whole Blood 302 mg/dL (70-110)
[2023-06-16] MEDS ORDERED: MIDODRINE 5 MG TAB PO SCH (07:30)
[2023-06-16] MEDS: INSULIN ASPART (NovoLOG) 100 UNIT/ML VIAL SQ SCH ×4 (08:18→20:34)
[2023-06-16] MEDS: POTASSIUM CHLORIDE ER 20 MEQ TAB.ER PO SCH (08:19)
[2023-06-16] MEDS: NICOTINE 14MG/24HR PATCH TRANSDERM SCH (08:19)
[2023-06-16] MEDS: PIPERACILLIN-TAZOBACTAM 3.375 GM in SODIUM CHLORIDE 0.9% 100 ML IVPB SCH ×3 (08:19→23:26)
[2023-06-16] MEDS: SPIRONOLACTONE 25 MG TAB PO SCH (08:20)
[2023-06-16] MEDS: ASPIRIN 81 MG PO SCH (08:20)
[2023-06-16] MEDS: DULoxetine HCL 60 MG CAPSULE.DR PO SCH ×2 (08:20→20:34)
[2023-06-16] MEDS: ATORVASTATIN 40 MG TAB PO SCH (08:20)
[2023-06-16] MEDS: CYCLOBENZAPRINE 10 MG TAB PO SCH ×4 (08:20→20:34)
[2023-06-16] MEDS: DAPAGLIFLOZIN PROPANEDIOL 10 MG TABLET PO SCH (08:21)
[2023-06-16] MEDS: METOPROLOL SUCCINATE (ER) 25 MG TAB.ER.24H PO SCH (08:21)
[2023-06-16] MEDS: MORPHINE SULFATE IR 15 MG TABLET PO SCH ×4 (08:38→20:35)
[2023-06-16] MEDS: FUROSEMIDE 10 MG/ML 4 ML VIAL IV SCH ×2 (08:39→20:34)
[2023-06-16] MEDS: ENOXAPARIN 40 MG/0.4 ML SYRINGE SQ SCH (08:39)
[2023-06-16 08:46] LABS: Basophils # (A) 0.17 X 10*3/uL (0.00-0.10); Basophils % (A) 1.3 %; Eosinophils # (A) 0.66 X 10*3/uL (0.04-0.35); Eosinophils % (A) 5.1 %; HGB 10.8 g/dL (13.0-17.0); Lymphocytes # (A) 2.12 X 10*3/uL (0.90-5.00); Lymphocytes % (A) 16.5 %; MCHC 31.8 g/dL (32.0-37.0); MCV 88.1 FL (80.0-97.0); Mean Platelet Volume 11.9 FL (9.5-12.2); Monocytes # (A) 1.16 X 10*3/uL (0.20-1.00); NRBC Per 100 WBC 0.03 X 10*3/uL (0.00-0.01); Neutrophils # (A) 8.68 X 10*3/uL (1.80-7.70); Neutrophils % (A) 67.6 %; Platelet Count 218 X 10*3/uL (140-440); RBC 3.86 X 10*6/uL (4.40-5.60); RDW 17.3 % (11.5-14.5); WBC 12.85 X 10*3/uL (4.50-10.00)
[2023-06-16 08:48] LABS: BUN/Creat Ratio 26.95 Ratio (12.00-20.00); Blood Urea Nitrogen 51.2 mg/dL (9.0-27.0); Calcium 9.1 mg/dL (8.7-10.3); Carbon Dioxide 21.9 mmol/L (21.6-31.8); Chloride 98 mmol/L (96-109); Glucose 275 mg/dL (70-110); Potassium 4.4 mmol/L (3.5-5.5); Sodium 132 mmol/L (135-145)
[2023-06-16] MEDS ORDERED: MIDODRINE 5 MG TAB PO PRN (09:08)
[2023-06-16 11:44] LABS: Glucose,Whole Blood 212 mg/dL (70-110)
[2023-06-16] MEDS ORDERED: LACTULOSE 20 GM/30 ML CUP PO PRN (12:27)
[2023-06-16] MEDS ORDERED: CALCIUM CARBONATE 500 MG CHEWABLE PO PRN (12:27)
[2023-06-16] MEDS ORDERED: MELATONIN 3 MG TABLET PO PRN (12:27)
[2023-06-16] MEDS ORDERED: ALPRAZolam 0.25 MG TAB PO PRN (12:27)
[2023-06-16] MEDS ORDERED: DEXTROSE 50% SYRINGE 50 ML IVP PRN (12:30)
--- NOTE | 2023-06-16 13:01 | P.CRDCN ---
History of Present Illness Consult date: 06/16/23 Consult reason: congestive heart failure History of present illness: This is Bernardo Reza NP, I'm dictating on behalf of Dr. Griffin's H&P and A&P The patient was interviewed and examined. HPI: This is a 53-year-old male with a past medical history that includes asthma, coronary artery disease, angina, heart failure, COPD, diabetes, GERD, h yperlipidemia, hypertension, OH, pneumonia, sleep apnea, SVT, ischemic cardiomyopathy, and degenerative disc disease who presents to the hospital with complaints of shortness of breath. Patient reports he was recently discharged from the hospital approximately one week ago after receiving antibiotics for a foot infection. Patient was discharged with a PICC line and continued IV antibiotics as an outpatient. Patient reports that since his discharge she's had difficulty breathing that has gotten worse especially over the last few days. He denies any sick contacts, fever, chills. There was some concern about possible confusion, however patient was alert and oriented in the emergency department. Patient's EKG was negative for any obvious STEMI criteria. Troponins are flat and not significantly elevated. BUN/creatinine are elevated. Patient likely has some aspect of mild fluid overload secondary to consistent IV antibiotics. He was subsequently admitted and cardiology was consulted for increasing shortness of breath secondary to CHF. This morning the patient reports that he is feeling much better today. He states that he is breathing okay at this time. He is denying chest pain, heart palpitations, dizziness, syncope. Previous echo showed EF of less than 20%. ROS: [No fever, chills, or rigors] [no cough, phlegm, or expectoration] [no nausea, vomiting, or diarrhea] [no hematuria, dysuria] [no musculoskelatal complaints] [no strokes or seizures] [no skin lesions] EXAMINATION: GENERAL: Well-appearing, well-nourished and in no acute distress. NECK: Supple without JVD or thyromegaly. LUNGS: Breath sounds clear to auscultation bilaterally. Respiration equal and unlabored. No wheezes, rales or rhonchi. HEART: Regular rate and rhythm with systolic murmur, no rubs or gallops. S1 and S2 heard. EXTREMITIES: Normal range of motion, no edema. No clubbing or cyanosis. Peripheral pulses intact and strong. REVIEW OF LABS, ECG & MEDICAL DATA: LABS: White count 12.8, hemoglobin 10.8, platelets 218, sodium 132, potassium 4.4, BUN 51.2, creatinine 1.9, lactic acid 1.9, troponin 0.026, 0.026, 0.030, BNP 18,400 EKG: Sinus tachycardia IMAGING: Chest x-ray dated 06/15/2023 demonstrates findings most consistent with mild CHF. Foot x-ray dated 06/15/2023 demonstrates cannot exclude focal osteomyelitis of the posterior plantar calcaneus as described above, postsurg ical changes involving the fifth metatarsal and fifth MTP joint, stable compared to previous. 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 VITALS: Temp 98.0, pulse 97, respirations 19, blood pressure 103/72, O2 saturation 99% on room air IMPRESSION: 1. Right foot osteomyelitis 2. Congestive heart failure, EF less than 20% on previous echo 3. CKD 4. Long-term antibiotics secondary to infection PLAN: Change midodrine to 2.5 mg as needed for systolic blood pressure less than 90. Continue home diuretics. Shortness of breath is likely secondary to IV antibiotics. If necessary diuretic should be increased while on IV antibiotics to offset the extra fluid. Further recommend patient is based on patient's clinical course. Thank you for the consult and allowing us to participate in the care of this patient. Past Medical History Past Medical History: Asthma, Coronary Artery Disease (CAD), Chest Pain / Angina, Heart Failure, COPD, Diabetes Mellitus, GERD/Reflux, Hyperlipidemia, Hypertension, Myocardial Infarction (OH), Pneumonia, Sleep Apnea/CPAP/BIPAP, Supraventricular Tachycardia (SVT) Additional Past Medical History / Comment(s): Ischemic cardiomyopathy, chronic CHF, SVT, IDDM type II, KAMINI with CPAP occasionally used, chronic cervical/back pain, DJD, diabetic foot wounds x 4 months. Last Myocardial Infarction Date:: 12/11/17 History of Any Multi-Drug Resistant Organisms: MRSA Date of last positivie culture/infection: 03/10/20 MDRO Source:: MRSA TOE Past Surgical History: Adenoidectomy, AICD, Back Surgery, Cholecystectomy, EPS, Heart Catheterization, Pacemaker, Tonsillectomy Additional Past Surgical History / Comment(s): 12/10/17 cardiac cath, previous cardiac cath, 09/02/14 AICD/pacer, EGD/colonoscopy, low back surgery with fusion. Past Anesthesia/Blood Transfusion Reactions: Motion Sickness Additional Past Anesthesia/Blood Transfusion Reaction / Comment(s): Pt states he received blood with back surgery without reaction. Type of Cardiac Device: Permanent Pacemaker, AICD Device Placement Date:: 09-02-14 Past Psychological History: ADD/ADHD, Anxiety Additional Psychological History / Comment(s): Pt lives with his old son. There are cats in the home. Pt is very independent. He states he would like a walker d/t his L foot wound. He drives. Pt states he has ADHD. Pt is disabled. He has a glucometer and nebulizer. The patient worked in the past building [employer] and [employer]. Smoking Status: Current every day smoker Past Alcohol Use History: Occasional Additional Past Alcohol Use History / Comment(s): patient states that he quit smoking 3 weeks ago Past Drug Use History: Marijuana Additional Drug Use History / Comment(s): Occasional marijuana use. - Past Family History Father Additional Family Medical History / Comment(s): Pt has not kept in close contact with his father for many yrs. Father was an alcoholic and pt believes he has from cirrhosis of the liver. Mother History Unknown: Yes Additional Family Medical History / Comment(s): Pt is not in contact with his mother or his father who he has heard had . Medications and Allergies Home Medications Medication Instructions Recorded Confirmed Type Albuterol Inhaler [Ventolin Hfa 2 puff INHALATION RT-QID PRN 07/06/22 06/15/23 History Inhaler] INSULIN LISPRO (humaLOG) [humaLOG] 5 - 10 unit SQ ACHS PRN 07/06/22 06/15/23 History Morphine Sulfate Ir [MSIR] 30 mg PO QID 07/06/22 06/15/23 History DULoxetine HCL [Cymbalta] 60 mg PO BID 11/18/22 06/15/23 History Cyclobenzaprine [Flexeril] 10 mg PO QID 05/14/23 06/15/23 History Zolpidem [Ambien] 10 mg PO HS PRN 05/14/23 06/15/23 History Piperacillin-Tazobactam [Zosyn] 3.375 gm IVPB Q8HR #120 each 05/22/23 06/15/23 Rx Aspirin 81 mg PO DAILY tab 05/29/23 06/15/23 Rx Atorvastatin [Lipitor] 40 mg PO DAILY #30 tab 05/29/23 06/15/23 Rx Bumetanide [BUMEX] 2 mg PO BID #120 tab 05/29/23 06/15/23 Rx Midodrine [ProAmatine] 5 mg PO AC-TID #100 tab 05/29/23 06/15/23 Rx Nicotine 14Mg/24Hr Patch [Habitrol] 1 patch TRANSDERM DAILY #14 patch 05/29/23 06/15/23 Rx Potassium Chloride ER [K-Dur 20] 20 meq PO DAILY #30 tab 05/29/23 06/15/23 Rx SILVER sulfADIAZINE CREAM 1 applic TOPICAL BID 06/04/23 06/15/23 History [Silvadene Cream] Dapagliflozin Propanediol [Farxiga] 10 mg PO DAILY #30 tab 06/10/23 06/15/23 Rx Insulin Glargine,Hum.rec.anlog 28 units SQ DAILY #0 06/10/23 06/15/23 Rx [Toujeo Solostar] Metoprolol Succinate (ER) [Toprol 25 mg PO DAILY #30 tab 06/10/23 06/15/23 Rx XL] Spironolactone [Aldactone] 25 mg PO DAILY #60 tab 06/10/23 06/15/23 Rx Allergies Allergy/AdvReac Type Severity Reaction Status Date / Time azithromycin Allergy Anaphylaxis Verified 06/15/23 19:17 gemfibrozil [From Lopid] Allergy Rash/Hives Verified 06/15/23 19:17 Physical Exam Vitals: Vital Signs Temp Pulse Pulse Resp BP BP Pulse Ox 06/16/23 09:35 100 06/16/23 07:27 98 F 97 19 103/72 99 06/16/23 02:27 98.1 F 99 18 111/72 99 06/15/23 23:20 97.5 F L 106 H 17 110/64 98 06/15/23 21:58 101 H 20 100/73 100 06/15/23 21:00 99 22 95/68 99 06/15/23 19:12 103 H 22 108/73 99 06/15/23 18:00 102 H 24 105/64 99 06/15/23 16:05 103 H 28 H 121/94 98 06/15/23 14:42 97.0 F L 68 24 97 Intake and Output 06/15/23 06/16/23 06/16/23 22:59 06:59 14:59 Other: # Voids 2 Weight 95.254 kg Results 06/16/23 06:30 06/16/23 06:30 Cardiac Enzymes 06/15/23 06/15/23 06/15/23 Range/Units 17:11 17:11 19:54 AST 38 (17-59) U/L Troponin I 0.026 0.026 (0.000-0.034) ng/mL 06/15/23 Range/Units 23:32 AST (17-59) U/L Troponin I 0.030 (0.000-0.034) ng/mL Coagulation 06/15/23 Range/Units 15:37 PT 14.6 H (10.0-12.5) sec APTT 24.3 (22.0-30.0) sec CBC 06/15/23 06/16/23 Range/Units 15:37 06:30 WBC 15.9 H 12.85 H (3.8-10.6) k/uL RBC 4.00 L 3.86 L (4.30-5.90) m/uL Hgb 11.6 L 10.8 L (13.0-17.5) gm/dL Hct 35.7 L 34.0 L (39.0-53.0) % Plt Count 217 218 (150-450) k/uL Comprehensive Metabolic Panel 06/15/23 06/16/23 Range/Units 17:11 06:30 Sodium 134 L 132 L (137-145) mmol/L Potassium 4.6 4.4 (3.5-5.1) mmol/L Chloride 99 98 (98-107) mmol/L Carbon Dioxide 23 21.9 (22-30) mmol/L BUN 53 H 51.2 H (9-20) mg/dL Creatinine 1.71 H 1.9 H (0.66-1.25) mg/dL Glucose 267 H 275 H (74-99) mg/dL Calcium 9.3 9.1 (8.4-10.2) mg/dL AST 38 (17-59) U/L ALT 51 H (4-49) U/L Alkaline Phosphatase 202 H (38-126) U/L Total Protein 8.1 (6.3-8.2) g/dL Albumin 4.1 (3.5-5.0) g/dL Current Medications Generic Name Dose Route Start Last Admin Trade Name Freq PRN Reason Stop Dose Admin Acetaminophen 650 mg 06/16/23 12:27 Acetaminophen Tab 325 Mg Tab PO Q6HR PRN Mild Pain or Fever > 100.5 Albuterol Sulfate 2.5 mg 06/15/23 20:12 Albuterol Nebulized 2.5 Mg/3 Ml INHALATION RT-QID PRN Shortness Of Breath Alprazolam 0.25 mg 06/16/23 12:27 Alprazolam 0.25 Mg Tab PO Q6HR PRN Anxiety Aspirin 81 mg 06/16/23 09:00 06/16/23 08:20 Aspirin 81 Mg PO 81 mg DAILY LAN Administration Atorvastatin Calcium 40 mg 06/16/23 09:00 06/16/23 08:20 Atorvastatin 40 Mg Tab PO 40 mg DAILY LAN Administration Calcium Carbonate/Glycine 1,000 mg 06/16/23 12:27 Calcium Carbonate 500 Mg Chewable PO Q4HR PRN Dyspepsia Cyclobenzaprine HCl 10 mg 06/15/23 22:00 06/16/23 08:20 Cyclobenzaprine 10 Mg Tab PO 10 mg QID LAN Administration Dapagliflozin 10 mg 06/16/23 09:00 06/16/23 08:21 Dapagliflozin Propanediol 10 Mg Tablet PO 10 mg DAILY LAN Administration Dextrose/Water 50 ml 06/16/23 12:30 Dextrose 50% Syringe 50 Ml IVP PER PROTOCOL PRN Hypoglycemia Protocol Dextrose/Water 25 ml 06/16/23 12:30 Dextrose 50% Syringe 50 Ml IVP PER PROTOCOL PRN Hypoglycemia Protocol Duloxetine HCl 60 mg 06/15/23 21:00 06/16/23 08:20 Duloxetine Hcl 60 Mg Capsule.Dr PO 60 mg BID LAN Administration Enoxaparin Sodium 40 mg 06/16/23 09:00 06/16/23 08:39 Enoxaparin 40 Mg/0.4 Ml Syringe SQ 40 mg DAILY LAN Administration Furosemide 40 mg 06/16/23 09:00 06/16/23 08:39 Furosemide 10 Mg/Ml 4 Ml Vial IV 40 mg Q12HR LAN Administration Piperacillin Sod/Tazobactam 100 mls @ 25 mls/hr 06/16/23 00:00 06/16/23 08:19 Sod 3.375 gm/ Sodium Chloride IVPB 25 mls/hr Q8HR LAN Administration Protocol Insulin Aspart 0 unit 06/16/23 07:30 06/16/23 08:18 Insulin Aspart (Novolog) 100 Unit/Ml Vial SQ 8 unit ACHS [facility] Administration Protocol Insulin Detemir 28 unit 06/16/23 13:00 Insulin Detemir (Levemir) 100 Unit/Ml Syr SQ DAILY@0700 [facility] Lactulose 20 gm 06/16/23 12:27 Lactulose 20 Gm/30 Ml Cup PO DAILY PRN Constipation Melatonin 3 mg 06/16/23 12:27 Melatonin 3 Mg Tablet PO HS PRN Insomnia Metoprolol Succinate 25 mg 06/16/23 09:00 06/16/23 08:21 Metoprolol Succinate (Er) 25 Mg Tab.Er.24h PO 25 mg DAILY LAN Administration Midodrine 2.5 mg 06/16/23 09:08 Midodrine 5 Mg Tab PO Q6H PRN Blood Pressure - Low Morphine Sulfate 30 mg 06/15/23 22:00 06/16/23 08:38 Morphine Sulfate Ir 15 Mg Tablet PO 30 mg QID [facility] Administration Naloxone HCl 0.2 mg 06/15/23 17:56 Naloxone 0.4 Mg/Ml 1 Ml Vial IV Q2M PRN Opioid Reversal Nicotine 1 patch 06/16/23 09:00 06/16/23 08:19 Nicotine 14mg/24hr Patch TRANSDERM 1 patch DAILY LAN Administration Ondansetron HCl 4 mg 06/16/23 12:27 Ondansetron 4 Mg/2 Ml Vial IVP Q8HR PRN Nausea And Vomiting Potassium Chloride 20 meq 06/16/23 09:00 06/16/23 08:19 Potassium Chloride Er 20 Meq Tab.Er PO 20 meq DAILY LAN Administration Silver Sulfadiazine 1 applic 06/15/23 21:00 06/16/23 08:18 Silver Sulfadiazine 1% Cream 25 Gm Tube TOPICAL 1 applic BID LAN Administration Protocol Spironolactone 25 mg 06/16/23 09:00 06/16/23 08:20 Spironolactone 25 Mg Tab PO 25 mg DAILY LAN Administration Zolpidem Tartrate 10 mg 06/15/23 20:12 Zolpidem 5 Mg Tab PO HS PRN Insomnia Intake and Output 06/15/23 06/16/23 06/16/23 22:59 06:59 14:59 Other: # Voids 2 Weight 95.254 kg 06/16/23 06:30 06/16/23 06:30
[2023-06-16] MEDS: INSULIN DETEMIR (LEVEMIR) 100 UNIT/ML SYR SQ SCH (13:04)
--- NOTE | 2023-06-16 14:09 | XR ---
Lumbar spine HISTORY: Back pain COMPARISON: 12/13/2022. TECHNIQUE: 5 views lumbar spine were obtained. FINDINGS: Postsurgical changes of laminectomy from L3 through S1. The lumbar vertebral segments are normal in height and alignment. There is mild degenerative disease throughout the lumbar region there is mild disc space narrowing an d spondylosis. There is no spondylolysis or spondylolisthesis. Visualized sacrum and SI joints appear normal.. There is facet degeneration lower lumbar spine. IMPRESSION: 1. Mild degenerative disc disease. 2. Postsurgical changes of laminectomy in the lower lumbar spine. 3. facet arthropathy in the lumbar spine. 4. No significant interval change.
--- NOTE | 2023-06-16 14:50 | P.HPIM ---
History of Present Illness H&P Date: 06/16/23 Chief Complaint: Tired This is a 52-year-old patient, follows with Dr. Rodríguez. Chronic stable medical condition include CHF EF less than 20%, COPD, diabetes mellitus type 2, hy pertension, hyperlipidemia, obstructive sleep apnea, anxiety, AICD, lower extremity venous insufficiency. Patient had lower extremity wounds and has been followed by ID and Dr. Lugo from vascular. in the hospital from May 14 through May 29. Patient had worsening wound after right foot. has been told multiple times to Dr. Lugo to proceed with amputation. Last admission he also was on IV Bumex drip and dobutamine drip for congestive heart failure. Was discharged home on antibiotics. Admitted from June 05 through June 10. Presented again with worsening wound. malodorous drainage. Denies fever and chills. Tired. Does not want surgery. Reluctant. And/or nystagmus and need for the same. It was explained to her that antibiotics are not helping. Patient was seen by cardiology Dr. Lugo from vascular. Patient now presents for just feeling tired. Not able to sleep. Patient also got chronic low back pain which is raised up off and on. His edema is relativel y controlled. No fever no chills. Had decreased appetite at home. Review of systems: GEN.: Tired EYES: None HEENT: None NECK: None RESPIRATORY: [Baseline some shortness of breath CARDIOVASCULAR: None GASTROINTESTINAL: None GENITOURINARY: None MUSCULOSKELETAL: Joint pains LYMPHATICS: None HEMATOLOGICAL: None PSYCHIATRY: None NEUROLOGICAL: Some neuropathy Social history: Lives with his 20-year-old son. Disabled. 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 Smoking 2 packs a day for most of his life . Stop drinking heavy alcohol about 20 years ago. Has done marijuana. Physical examination: VITAL SIGNS: He 7, 99, 22, 95/68, 99% room air GENERAL: Sitting at the edge of the bed, tired EYES: Pupils equal. Conjunctiva normal. HEENT: External appearance of nose and ears normal, oral cavity grossly normal. NECK: JVD unable to assess; masses not palpable. HEART: First and second heart sounds are normal; some edema LUNGS: Respiratory rate normal; diminished breath sounds ABDOMEN: Soft, nontender, liver spleen not palpable, no masses palpable. PSYCH: Alert and oriented x3; mood and affect anxious. NEUROLOGICAL: Cranial nerves grossly intact. No facial asymmetry DERMATOLOGICAL: Right foot wound. Details in nursing notes. INVESTIGATIONS, reviewed in the clinical context: June 16: White count 12.8 hemoglobin 10.8 platelets 218 sodium 132 potassium 4.4 BUN 51.2 creatinine 1.9 blood glucose 275 EKG tracing personally reviewed by me-nonspecific T-wave changes. Chest x-ray film personally reviewed by me-venous prominence. Cardiomegaly Assessment and plan: -Acute on chronic congestive heart failure nonischemic cardiomyopathy systolic dysfunction EF less than 20%: Stabilized IV Lasix. Aldactone 25 mg a day AICD. Fluid restriction Being followed by cardiology and nephrology -Acute on chronic recurrent right lower leg cellulitis, infected right heel diabetic ulcer with prior history of debridement. Reportedly, Has been told for amputation before. Not improving Wound swab for Gram stain and culture. Proteus vulgaris, Streptococcus agalactiae group B-previously IV [place]-Zycuihpen-ug complete for a total of 6 weeks Patient has not healed with antibiotics and debridement alone. Does need amputation as discussed previously with Dr. Lugo. Patient has been reluctant patient accepts that he needs to amputation but not ready for the same. - COPD in a previous smoker Ventolin. -Diabetes mellitus type 2 chronically on insulin, uncontrolled with [id number] Levemir 35 units subcu daily . Diabetic diet. Accu-Cheks and sliding scale DC NovoLog -Hyperlipidemia Lipitor -Chronic kidney disease stage III from diabetic nephropathy and nephrosclerosis Baseline creatinine of 1.2 on May 14. -Acute kidney injury likely ATN from cardiorenal syndrome : Follow renal function. Nephrology following -Hyponatremia Fluid restriction -Chronic low back pain. Patient's had pain on and off for about 10 years. Has had prior surgery. Does not remember who did the surgery. topical lidocaine patch. -Essential hypertension Toprol XL 25 mg a day -Obstructive sleep apnea sometimes uses CPAP machine -Diabetic peripheral neuropathy -Anxiety Ativan when necessary -DJD Tylenol when necessary -AICD -Lower extremity chronic venous insufficiency -Full code IV Lasix. Home medications continued. Consultation to vascular, cardiology, ID. Discussed with patient. Prognosis remains guarded. Past Medical History Past Medical History: Asthma, Coronary Artery Disease (CAD), Chest Pain / Angina, Heart Failure, COPD, Diabetes Mellitus, GERD/Reflux, Hyperlipidemia, Hypertension, Myocardial Infarction (PA), Pneumonia, Sleep Apnea/CPAP/BIPAP, Supraventricular Tachycardia (SVT) Additional Past Medical History / Comment(s): Ischemic cardiomyopathy, chronic CHF, SVT, IDDM type II, KAMINI with CPAP occasionally used, chronic cervical/back pain, DJD, diabetic foot wounds x 4 months. Last Myocardial Infarction Date:: 12/11/17 History of Any Multi-Drug Resistant Organisms: MRSA Date of last positivie culture/infection: 03/10/20 MDRO Source:: MRSA TOE Past Surgical History: Adenoidectomy, AICD, Back Surgery, Cholecystectomy, EPS, Heart Catheterization, Pacemaker, Tonsillectomy Additional Past Surgical History / Comment(s): 12/10/17 cardiac cath, previous cardiac cath, 09/02/14 AICD/pacer, EGD/colonoscopy, low back surgery with fusion. Past Anesthesia/Blood Transfusion Reactions: Motion Sickness Additional Past Anesthesia/Blood Transfusion Reaction / Comment(s): Pt states he received blood with back surgery without reaction. Type of Cardiac Device: Permanent Pacemaker, AICD Device Placement Date:: 09-02-14 Past Psychological History: ADD/ADHD, Anxiety Additional Psychological History / Comment(s): Pt lives with his old son. There are cats in the home. Pt is very independent. He states he would like a walker d/t his L foot wound. He drives. Pt states he has ADHD. Pt is disabled. He has a glucometer and nebulizer. The patient worked in the past building [employer] and [employer]. Smoking Status: Current every day smoker Past Alcohol Use History: Occasional Additional Past Alcohol Use History / Comment(s): patient states that he quit smoking 3 weeks ago Past Drug Use History: Marijuana Additional Drug Use History / Comment(s): Occasional marijuana use. - Past Family History Father Additional Family Medical History / Comment(s): Pt has not kept in close contact with his father for many yrs. Father was an alcoholic and pt believes he has from cirrhosis of the liver. Mother History Unknown: Yes Additional Family Medical History / Comment(s): Pt is not in contact with his mother or his father who he has heard had . Medications and Allergies Home Medications Medication Instructions Recorded Confirmed Type Albuterol Inhaler [Ventolin Hfa 2 puff INHALATION RT-QID PRN 07/06/22 06/15/23 History Inhaler] INSULIN LISPRO (humaLOG) [humaLOG] 5 - 10 unit SQ ACHS PRN 07/06/22 06/15/23 History Morphine Sulfate Ir [MSIR] 30 mg PO QID 07/06/22 06/15/23 History DULoxetine HCL [Cymbalta] 60 mg PO BID 11/18/22 06/15/23 History Cyclobenzaprine [Flexeril] 10 mg PO QID 05/14/23 06/15/23 History Zolpidem [Ambien] 10 mg PO HS PRN 05/14/23 06/15/23 History Piperacillin-Tazobactam [Zosyn] 3.375 gm IVPB Q8HR #120 each 05/22/23 06/15/23 Rx Aspirin 81 mg PO DAILY tab 05/29/23 06/15/23 Rx Atorvastatin [Lipitor] 40 mg PO DAILY #30 tab 05/29/23 06/15/23 Rx Bumetanide [BUMEX] 2 mg PO BID #120 tab 05/29/23 06/15/23 Rx Midodrine [ProAmatine] 5 mg PO AC-TID #100 tab 05/29/23 06/15/23 Rx Nicotine 14Mg/24Hr Patch [Habitrol] 1 patch TRANSDERM DAILY #14 patch 05/29/23 06/15/23 Rx Potassium Chloride ER [K-Dur 20] 20 meq PO DAILY #30 tab 05/29/23 06/15/23 Rx SILVER sulfADIAZINE CREAM 1 applic TOPICAL BID 06/04/23 06/15/23 History [Silvadene Cream] Dapagliflozin Propanediol [Farxiga] 10 mg PO DAILY #30 tab 06/10/23 06/15/23 Rx Insulin Glargine,Hum.rec.anlog 28 units SQ DAILY #0 06/10/23 06/15/23 Rx [Tounenoo Solostar] Metoprolol Succinate (ER) [Toprol 25 mg PO DAILY #30 tab 06/10/23 06/15/23 Rx XL] Spironolactone [Aldactone] 25 mg PO DAILY #60 tab 06/10/23 06/15/23 Rx Allergies Allergy/AdvReac Type Severity Reaction Status Date / Time azithromycin Allergy Anaphylaxis Verified 06/15/23 19:17 gemfibrozil [From Lopid] Allergy Rash/Hives Verified 06/15/23 19:17 Physical Exam Vitals: Vital Signs Temp Pulse Pulse Resp BP BP Pulse Ox 06/16/23 09:35 100 06/16/23 07:27 98 F 97 19 103/72 99 06/16/23 02:27 98.1 F 99 18 111/72 99 06/15/23 23:20 97.5 F L 106 H 17 110/64 98 06/15/23 21:58 101 H 20 100/73 100 06/15/23 21:00 99 22 95/68 99 06/15/23 19:12 103 H 22 108/73 99 06/15/23 18:00 102 H 24 105/64 99 06/15/23 16:05 103 H 28 H 121/94 98 06/15/23 14:42 97.0 F L 68 24 97 Intake and Output 06/15/23 06/16/23 06/16/23 22:59 06:59 14:59 Other: # Voids 2 Weight 95.254 kg Results CBC & Chem 7: 06/16/23 06:30 06/16/23 06:30 Labs: Abnormal Lab Results - Last 24 Hours (Table) 06/15/23 06/15/23 06/15/23 Range/Units 15:37 15:37 15:37 WBC 15.9 H (3.8-10.6) k/uL RBC 4.00 L (4.30-5.90) m/uL Hgb 11.6 L (13.0-17.5) gm/dL Hct 35.7 L (39.0-53.0) % MCHC (32.0-37.0) g/dL RDW 16.2 H (11.5-15.5) % Neutrophils # 13.0 H (1.3-7.7) k/uL Monocytes # (0.20-1.00) X 10*3/uL Eosinophils # (0.04-0.35) X 10*3/uL Basophils # (0.00-0.10) X 10*3/uL NRBC/100 WBC Diff (0.00-0.01) X 10*3/uL PT 14.6 H (10.0-12.5) sec INR 1.4 H (<1.2) Sodium (137-145) mmol/L Anion Gap (4.00-12.00) mmol/L BUN (9-20) mg/dL Creatinine (0.66-1.25) mg/dL Est GFR (CKD-EPI) (>=60) BUN/Creatinine Ratio (12.00-20.00) Ratio Glucose (74-99) mg/dL POC Glucose (mg/dL) (70-110) mg/dL Total Bilirubin (0.2-1.3) mg/dL ALT (4-49) U/L Alkaline Phosphatase (38-126) U/L Urine Protein (Negative) Urine Glucose (UA) (Negative) Urine Opiates Screen Detected H (NotDetected) U Tricyclic Antidepress Detected H (NotDetected) U Marijuana (THC) Screen Detected H (NotDetected) 06/15/23 06/15/23 06/15/23 Range/Units 15:37 15:55 17:11 WBC (3.8-10.6) k/uL RBC (4.30-5.90) m/uL Hgb (13.0-17.5) gm/dL Hct (39.0-53.0) % MCHC (32.0-37.0) g/dL RDW (11.5-15.5) % Neutrophils # (1.3-7.7) k/uL Monocytes # (0.20-1.00) X 10*3/uL Eosinophils # (0.04-0.35) X 10*3/uL Basophils # (0.00-0.10) X 10*3/uL NRBC/100 WBC Diff (0.00-0.01) X 10*3/uL PT (10.0-12.5) sec INR (<1.2) Sodium 134 L (137-145) mmol/L Anion Gap (4.00-12.00) mmol/L BUN 53 H (9-20) mg/dL Creatinine 1.71 H (0.66-1.25) mg/dL Est GFR (CKD-EPI) (>=60) BUN/Creatinine Ratio (12.00-20.00) Ratio Glucose 267 H (74-99) mg/dL POC Glucose (mg/dL) 280 H (70-110) mg/dL Total Bilirubin 1.4 H (0.2-1.3) mg/dL ALT 51 H (4-49) U/L Alkaline Phosphatase 202 H (38-126) U/L Urine Protein Trace H (Negative) Urine Glucose (UA) 4+ H (Negative) Urine Opiates Screen (NotDetected) U Tricyclic Antidepress (NotDetected) U Marijuana (THC) Screen (NotDetected) 06/16/23 06/16/23 06/16/23 Range/Units 05:15 06:30 06:30 WBC 12.85 H (3.8-10.6) k/uL RBC 3.86 L (4.30-5.90) m/uL Hgb 10.8 L (13.0-17.5) gm/dL Hct 34.0 L (39.0-53.0) % MCHC 31.8 L (32.0-37.0) g/dL RDW 17.3 H (11.5-15.5) % Neutrophils # 8.68 H (1.3-7.7) k/uL Monocytes # 1.16 H (0.20-1.00) X 10*3/uL Eosinophils # 0.66 H (0.04-0.35) X 10*3/uL Basophils # 0.17 H (0.00-0.10) X 10*3/uL NRBC/100 WBC Diff 0.03 H (0.00-0.01) X 10*3/uL PT (10.0-12.5) sec INR (<1.2) Sodium 132 L (137-145) mmol/L Anion Gap 12.10 H (4.00-12.00) mmol/L BUN 51.2 H (9-20) mg/dL Creatinine 1.9 H (0.66-1.25) mg/dL Est GFR (CKD-EPI) 41 L (>=60) BUN/Creatinine Ratio 26.95 H (12.00-20.00) Ratio Glucose 275 H (74-99) mg/dL POC Glucose (mg/dL) 302 H (70-110) mg/dL Total Bilirubin (0.2-1.3) mg/dL ALT (4-49) U/L Alkaline Phosphatase (38-126) U/L Urine Protein (Negative) Urine Glucose (UA) (Negative) Urine Opiates Screen (NotDetected) U Tricyclic Antidepress (NotDetected) U Marijuana (THC) Screen (NotDetected) 06/16/23 Range/Units 11:41 WBC (3.8-10.6) k/uL RBC (4.30-5.90) m/uL Hgb (13.0-17.5) gm/dL Hct (39.0-53.0) % MCHC (32.0-37.0) g/dL RDW (11.5-15.5) % Neutrophils # (1.3-7.7) k/uL Monocytes # (0.20-1.00) X 10*3/uL Eosinophils # (0.04-0.35) X 10*3/uL Basophils # (0.00-0.10) X 10*3/uL NRBC/100 WBC Diff (0.00-0.01) X 10*3/uL PT (10.0-12.5) sec INR (<1.2) Sodium (137-145) mmol/L Anion Gap (4.00-12.00) mmol/L BUN (9-20) mg/dL Creatinine (0.66-1.25) mg/dL Est GFR (CKD-EPI) (>=60) BUN/Creatinine Ratio (12.00-20.00) Ratio Glucose (74-99) mg/dL POC Glucose (mg/dL) 212 H (70-110) mg/dL Total Bilirubin (0.2-1.3) mg/dL ALT (4-49) U/L Alkaline Phosphatase (38-126) U/L Urine Protein (Negative) Urine Glucose (UA) (Negative) Urine Opiates Screen (NotDetected) U Tricyclic Antidepress (NotDetected) U Marijuana (THC) Screen (NotDetected) Microbiology - Last 24 Hours (Table) 06/15/23 17:11 Gram Stain - Preliminary Foot - Right Thrombosis Risk Factor Assmnt - Choose All That Apply Each Factor Represents 1 point: Age 41-60 years Thrombosis Risk Factor Assessment Total Risk Factor Score: 1 Thrombosis Risk Factor Assessment Level: Low Risk
[2023-06-16] MEDS: LIDOCAINE 5% PATCH TOPICAL SCH (16:48)
[2023-06-16 16:58] LABS: Glucose,Whole Blood 125 mg/dL (70-110)
[2023-06-16 20:22] LABS: Glucose,Whole Blood 153 mg/dL (70-110)
[2023-06-16 22:05] LABS: Glucose,Whole Blood 142 mg/dL (70-110)
[2023-06-17] MEDS: ACETAMINOPHEN TAB 325 MG TAB PO PRN (04:01)
[2023-06-17 06:30] LABS: Glucose,Whole Blood 77 mg/dL (70-110)
[2023-06-17] MEDS: INSULIN ASPART (NovoLOG) 100 UNIT/ML VIAL SQ SCH ×4 (06:32→21:03)
[2023-06-17] MEDS: INSULIN DETEMIR (LEVEMIR) 100 UNIT/ML SYR SQ SCH (06:49)
[2023-06-17] MEDS: ENOXAPARIN 40 MG/0.4 ML SYRINGE SQ SCH (08:28)
[2023-06-17] MEDS: PIPERACILLIN-TAZOBACTAM 3.375 GM in SODIUM CHLORIDE 0.9% 100 ML IVPB SCH ×2 (08:28→17:15)
[2023-06-17] MEDS: LIDOCAINE 5% PATCH TOPICAL SCH (08:30)
[2023-06-17] MEDS: DULoxetine HCL 60 MG CAPSULE.DR PO SCH ×2 (08:31→20:23)
[2023-06-17] MEDS: METOPROLOL SUCCINATE (ER) 25 MG TAB.ER.24H PO SCH (08:32)
[2023-06-17] MEDS: SPIRONOLACTONE 25 MG TAB PO SCH (08:32)
[2023-06-17] MEDS: POTASSIUM CHLORIDE ER 20 MEQ TAB.ER PO SCH (08:32)
[2023-06-17] MEDS: CYCLOBENZAPRINE 10 MG TAB PO SCH ×4 (08:33→20:23)
[2023-06-17] MEDS: ASPIRIN 81 MG PO SCH (08:33)
[2023-06-17] MEDS: NICOTINE 14MG/24HR PATCH TRANSDERM SCH (08:33)
[2023-06-17] MEDS: ATORVASTATIN 40 MG TAB PO SCH (08:33)
[2023-06-17] MEDS: DAPAGLIFLOZIN PROPANEDIOL 10 MG TABLET PO SCH (08:34)
[2023-06-17] MEDS: MORPHINE SULFATE IR 15 MG TABLET PO SCH ×4 (08:34→20:23)
--- NOTE | 2023-06-17 08:34 | P.CONS ---
History of Present Illness - Reason for Consult Consult date: 06/16/23 Lower extremity wound Requesting physician: Buck Johnson - Chief Complaint Increasing shortness of breath x few days - History of Present Illness Patient is a 53-year-old male with a past medical history significant for diabetes mellitus hyperlipidemia hypertension [place] history of diabetic foot infection with a chronic nonhealing wound to the right heel area and underlying osteomyelitis with a previous culture positive for Proteus Acinetobacter providencia and anaerobes, while the patient is currently on Zosyn in the outpatient setting patient now presenting to the hospital complaining of increasing shortness of breath the patient's son complained to the ER physician patient slightly more confused than normal also complaining of increasing shortness of breath denies any chest pain or cough denies any nausea no vomiting no abdominal pain or diarrhea patient did have diabetes neuropathy denies significant pain to the right heel wound area patient patient has been getting his antibiotics is not clear if he has missed any doses patient on presentation to the hospital was afebrile and no fever has been recorded subsequently patient did have a white count of 15.9 with a left shift creatinine slightly down to 1.94 on previous readings urine has been negative urine testing was positive for tricyclic marijuana and opiates influenza RSV and COVID testing was negative local culture has been obtained patient did have a foot x-ray cannot exclude focal cellulitis of the posterior plantar calcaneus chest x-ray finding consistent with a mild CHF infectious disease was consulted for further management of antibiotic therapy Review of Systems Positive point and negatives has been mentioned in the HPI, complete review of systems was performed and all other systems are negative Past Medical History Past Medical History: Asthma, Coronary Artery Disease (CAD), Chest Pain / Angina, Heart Failure, COPD, Diabetes Mellitus, GERD/Reflux, Hyperlipidemia, Hypertension, Myocardial Infarction ([place]), Pneumonia, Sleep Apnea/CPAP/BIPAP, Supraventricular Tachycardia (SVT) Additional Past Medical History / Comment(s): Ischemic cardiomyopathy, chronic CHF, SVT, IDDM type II, KAMINI with CPAP occasionally used, chronic cervical/back pain, DJD, diabetic foot wounds x 4 months. Last Myocardial Infarction Date:: 12/11/17 History of Any Multi-Drug Resistant Organisms: MRSA Year Discovered:: 03/10/20 MDRO Source:: MRSA TOE Past Surgical History: Adenoidectomy, AICD, Back Surgery, Cholecystectomy, EPS, Heart Catheterization, Pacemaker, Tonsillectomy Additional Past Surgical History / Comment(s): 12/10/17 cardiac cath, previous cardiac cath, 09/02/14 AICD/pacer, EGD/colonoscopy, low back surgery with fusion. Past Anesthesia/Blood Transfusion Reactions: Motion Sickness Additional Past Anesthesia/Blood Transfusion Reaction / Comm: Pt states he received blood with back surgery without reaction. Type of Cardiac Device: Permanent Pacemaker, AICD Device Placement Date:: 09-02-14 Past Psychological History: ADD/ADHD, Anxiety Additional Psychological History / Comment(s): Pt lives with his old son. There are cats in the home. Pt is very independent. He states he would like a walker d/t his L foot wound. He drives. Pt states he has ADHD. Pt is disabled. He has a glucometer and nebulizer. The patient worked in the past building [employer] and [employer]. Smoking Status: Current every day smoker Past Alcohol Use History: Occasional Additional Past Alcohol Use History / Comment(s): patient states that he quit smoking 3 weeks ago Past Drug Use History: Marijuana Additional Drug Use History / Comment(s): Occasional marijuana use. - Past Family History Father Additional Family Medical History / Comment(s): Pt has not kept in close contact with his father for many yrs. Father was an alcoholic and pt believes he has from cirrhosis of the liver. Mother History Unknown: Yes Additional Family Medical History / Comment(s): Pt is not in contact with his mother or his father who he has heard had . Medications and Allergies Home Medications Medication Instructions Recorded Confirmed Type Albuterol Inhaler [Ventolin Hfa 2 puff INHALATION RT-QID PRN 07/06/22 06/15/23 History Inhaler] Aspirin 81 mg PO DAILY tab 05/29/23 06/15/23 Rx Nicotine 14Mg/24Hr Patch [Habitrol] 1 patch TRANSDERM DAILY #14 patch 05/29/23 06/15/23 Rx SILVER sulfADIAZINE CREAM 1 applic TOPICAL BID 06/04/23 06/15/23 History [Silvadene Cream] Insulin Glargine,Hum.rec.anlog 28 units SQ DAILY #0 06/10/23 06/15/23 Rx [Toujeo Solostar] Metoprolol Succinate (ER) [Toprol 25 mg PO DAILY #30 tab 06/10/23 06/15/23 Rx XL] Acetaminophen Tab [Tylenol] 650 mg PO Q6HR PRN tab 07/02/23 Rx Cefepime [Maxipime] 2 gm IVP Q48H #12 each 07/02/23 Rx DAPTOmycin [Cubicin] 600 mg IV Q48H #12 each 07/02/23 Rx DULoxetine HCL [Cymbalta] 30 mg PO DAILY cap 07/02/23 Rx Famotidine [Pepcid] 20 mg PO DAILY tab 07/02/23 Rx Folic Acid 1 mg PO DAILY tab 07/02/23 Rx HYDROcodone/APAP 5-325MG [Argyle 1 each PO Q6HR PRN #3 tab 07/02/23 Rx 5-325] Heparin Sodium,Porcine (1 ml) 5,000 unit SQ Q8HR each 07/02/23 Rx [Heparin Sodium] INSULIN ASPART (NovoLOG) [NovoLOG 0 unit SQ ACHS each 07/02/23 Rx (formulary)] Ipratropium-Albuterol Nebulize 3 ml INHALATION RT-QID each 07/02/23 Rx [Duoneb 0.5 mg-3 mg/3 ml Soln] L.idocaine 4% Patch 1 patch TOPICAL DAILY patch 07/02/23 Rx Lactulose [Cephulac] 20 gm PO DAILY PRN ml 07/02/23 Rx Midodrine [ProAmatine] 10 mg PO AC-TID tab 07/02/23 Rx Multivitamins, Thera [Multivitamin 1 each PO DAILY tab 07/02/23 Rx (formulary)] OLANZapine [ZyPREXA] 5 mg PO TID PRN tab 07/02/23 Rx QUEtiapine [SEROquel] 12.5 mg PO BID PRN tab 07/02/23 Rx Sodium Bicarbonate Tab 650 mg PO BID tab 07/02/23 Rx Thiamine [Vitamin B-1] 100 mg PO DAILY #30 tablet 07/02/23 Rx Torsemide [Demadex] 40 mg PO DAILY tab 07/02/23 Rx fluPHENAZine [Prolixin] 3 mg PO HS tab 07/02/23 Rx metroNIDAZOLE [Flagyl] 500 mg PO TID #90 tab 07/02/23 Rx traZODone HCL [Desyrel] 50 mg PO HS PRN tab 07/02/23 Rx Allergies Allergy/AdvReac Type Severity Reaction Status Date / Time azithromycin Allergy Anaphylaxis Verified 06/15/23 19:17 gemfibrozil [From Lopid] Allergy Rash/Hives Verified 06/15/23 19:17 Physical Exam Vitals: Vital Signs Temp Pulse Pulse Resp BP BP Pulse Ox 06/16/23 09:35 100 06/16/23 07:27 98 F 97 19 103/72 99 06/16/23 02:27 98.1 F 99 18 111/72 99 06/15/23 23:20 97.5 F L 106 H 17 110/64 98 06/15/23 21:58 101 H 20 100/73 100 06/15/23 21:00 99 22 95/68 99 06/15/23 19:12 103 H 22 108/73 99 06/15/23 18:00 102 H 24 105/64 99 06/15/23 16:05 103 H 28 H 121/94 98 06/15/23 14:42 97.0 F L 68 24 97 Intake and Output 06/15/23 06/16/23 06/16/23 22:59 06:59 14:59 Other: # Voids 2 Weight 95.254 kg GENERAL DESCRIPTION: Middle-aged male lying in bed, no distress. No tachypnea or accessory muscle of respiration use. HEENT: Shows Pallor , no scleral icterus. Oral mucous membrane is dry. No pharyngeal erythema or thrush NECK: Trachea central, no thyromegaly. LUNGS: Unlabored breathing. Decreased intensity of breath sounds HEART: S1, S2, regular rate and rhythm. No loud murmur ABDOMEN: Soft, no tenderness , EXTREMITIES: Diffuse swelling both legs did have a wound on the right heel area with some maceration but no purulent drainage was noticed SKIN: No rash, no masses palpable. NEUROLOGICAL: The patient is awake, alert, oriented x3, mood and affect normal. Results CBC & Chem 7: 07/02/23 06:01 07/02/23 06:01 Labs: Abnormal Lab Results - Last 24 Hours (Table) 06/15/23 06/15/23 06/15/23 Range/Units 15:37 15:37 15:37 WBC 15.9 H (3.8-10.6) k/uL RBC 4.00 L (4.30-5.90) m/uL Hgb 11.6 L (13.0-17.5) gm/dL Hct 35.7 L (39.0-53.0) % MCHC (32.0-37.0) g/dL RDW 16.2 H (11.5-15.5) % Neutrophils # 13.0 H (1.3-7.7) k/uL Monocytes # (0.20-1.00) X 10*3/uL Eosinophils # (0.04-0.35) X 10*3/uL Basophils # (0.00-0.10) X 10*3/uL NRBC/100 WBC Diff (0.00-0.01) X 10*3/uL PT 14.6 H (10.0-12.5) sec INR 1.4 H (<1.2) Sodium (137-145) mmol/L Anion Gap (4.00-12.00) mmol/L BUN (9-20) mg/dL Creatinine (0.66-1.25) mg/dL Est GFR (CKD-EPI) (>=60) BUN/Creatinine Ratio (12.00-20.00) Ratio Glucose (74-99) mg/dL POC Glucose (mg/dL) (70-110) mg/dL Total Bilirubin (0.2-1.3) mg/dL ALT (4-49) U/L Alkaline Phosphatase (38-126) U/L Urine Protein (Negative) Urine Glucose (UA) (Negative) Urine Opiates Screen Detected H (NotDetected) U Tricyclic Antidepress Detected H (NotDetected) U Marijuana (THC) Screen Detected H (NotDetected) 06/15/23 06/15/23 06/15/23 Range/Units 15:37 15:55 17:11 WBC (3.8-10.6) k/uL RBC (4.30-5.90) m/uL Hgb (13.0-17.5) gm/dL Hct (39.0-53.0) % MCHC (32.0-37.0) g/dL RDW (11.5-15.5) % Neutrophils # (1.3-7.7) k/uL Monocytes # (0.20-1.00) X 10*3/uL Eosinophils # (0.04-0.35) X 10*3/uL Basophils # (0.00-0.10) X 10*3/uL NRBC/100 WBC Diff (0.00-0.01) X 10*3/uL PT (10.0-12.5) sec INR (<1.2) Sodium 134 L (137-145) mmol/L Anion Gap (4.00-12.00) mmol/L BUN 53 H (9-20) mg/dL Creatinine 1.71 H (0.66-1.25) mg/dL Est GFR (CKD-EPI) (>=60) BUN/Creatinine Ratio (12.00-20.00) Ratio Glucose 267 H (74-99) mg/dL POC Glucose (mg/dL) 280 H (70-110) mg/dL Total Bilirubin 1.4 H (0.2-1.3) mg/dL ALT 51 H (4-49) U/L Alkaline Phosphatase 202 H (38-126) U/L Urine Protein Trace H (Negative) Urine Glucose (UA) 4+ H (Negative) Urine Opiates Screen (NotDetected) U Tricyclic Antidepress (NotDetected) U Marijuana (THC) Screen (NotDetected) 06/16/23 06/16/23 06/16/23 Range/Units 05:15 06:30 06:30 WBC 12.85 H (3.8-10.6) k/uL RBC 3.86 L (4.30-5.90) m/uL Hgb 10.8 L (13.0-17.5) gm/dL Hct 34.0 L (39.0-53.0) % MCHC 31.8 L (32.0-37.0) g/dL RDW 17.3 H (11.5-15.5) % Neutrophils # 8.68 H (1.3-7.7) k/uL Monocytes # 1.16 H (0.20-1.00) X 10*3/uL Eosinophils # 0.66 H (0.04-0.35) X 10*3/uL Basophils # 0.17 H (0.00-0.10) X 10*3/uL NRBC/100 WBC Diff 0.03 H (0.00-0.01) X 10*3/uL PT (10.0-12.5) sec INR (<1.2) Sodium 132 L (137-145) mmol/L Anion Gap 12.10 H (4.00-12.00) mmol/L BUN 51.2 H (9-20) mg/dL Creatinine 1.9 H (0.66-1.25) mg/dL Est GFR (CKD-EPI) 41 L (>=60) BUN/Creatinine Ratio 26.95 H (12.00-20.00) Ratio Glucose 275 H (74-99) mg/dL POC Glucose (mg/dL) 302 H (70-110) mg/dL Total Bilirubin (0.2-1.3) mg/dL ALT (4-49) U/L Alkaline Phosphatase (38-126) U/L Urine Protein (Negative) Urine Glucose (UA) (Negative) Urine Opiates Screen (NotDetected) U Tricyclic Antidepress (NotDetected) U Marijuana (THC) Screen (NotDetected) 06/16/23 Range/Units 11:41 WBC (3.8-10.6) k/uL RBC (4.30-5.90) m/uL Hgb (13.0-17.5) gm/dL Hct (39.0-53.0) % MCHC (32.0-37.0) g/dL RDW (11.5-15.5) % Neutrophils # (1.3-7.7) k/uL Monocytes # (0.20-1.00) X 10*3/uL Eosinophils # (0.04-0.35) X 10*3/uL Basophils # (0.00-0.10) X 10*3/uL NRBC/100 WBC Diff (0.00-0.01) X 10*3/uL PT (10.0-12.5) sec INR (<1.2) Sodium (137-145) mmol/L Anion Gap (4.00-12.00) mmol/L BUN (9-20) mg/dL Creatinine (0.66-1.25) mg/dL Est GFR (CKD-EPI) (>=60) BUN/Creatinine Ratio (12.00-20.00) Ratio Glucose (74-99) mg/dL POC Glucose (mg/dL) 212 H (70-110) mg/dL Total Bilirubin (0.2-1.3) mg/dL ALT (4-49) U/L Alkaline Phosphatase (38-126) U/L Urine Protein (Negative) Urine Glucose (UA) (Negative) Urine Opiates Screen (NotDetected) U Tricyclic Antidepress (NotDetected) U Marijuana (THC) Screen (NotDetected) Microbiology - Last 24 Hours (Table) 06/15/23 17:11 Gram Stain - Preliminary Foot - Right Assessment and Plan (1) Chronic ulcer of right foot with fat layer exposed Current Visit: No Status: Acute Code(s): L97.512 - NON-PRS CHRONIC ULCER OTH PRT RIGHT FOOT W FAT LAYER EXPOSED SNOMED Code(s): 06702071966045257 (2) Foot osteomyelitis, right Current Visit: No Status: Acute Code(s): M86.9 - OSTEOMYELITIS, UNSPECIFIED SNOMED Code(s): 9942051223643097 Plan: 1patient with the right heel diabetic foot infection with underlying osteomyelitis in this patient cultures were predominantly positive for gram- negative including Proteus Providencia Streptococcus and anaerobes while the patient has been getting IV Zosyn in the outpatient setting now presented to hospital predominantly with increasing shortness of breath and concern for mild CHF for which cardiology has been consulted overall right heel wound did not show any worsening and no foul-smelling drainage was noticed 2-continue patient on Zosyn 3.375 g every 8 hours 3-local wound care to the right heel wound with slough area with Medihoney and rest of the area with Aquacel silver dressing change daily Patient is high risk of limb loss because of noncompliance We will follow on clinical condition and cultures to further adjust medication if needed Thank you for this consultation we will follow the patient along with you Dictation was produced using [employer] dictation software. please excuse any grammatical, word or spelling errors. Time with Patient: Greater than 30
[2023-06-17] MEDS: FUROSEMIDE 10 MG/ML 4 ML VIAL IV SCH (08:35)
[2023-06-17 11:45] LABS: Glucose,Whole Blood 170 mg/dL (70-110)
--- NOTE | 2023-06-17 12:22 | P.PN ---
Subjective HISTORY OF PRESENT ILLNESS: Patient examined this morning. Patient is sitting in the setting the bed. Patient denies chest pain or pressure. He denies shortness of breath. He reports improvement in his pain in his right lower extremity. Vital signs are stable. He is anticipating discharge today. PHYSICAL EXAM: VITAL SIGNS: Reviewed. GENERAL: Well-developed in no acute distress. NECK: Supple. No JVD or thyromegaly LUNGS: Respirations even and unlabored. Lungs essentially clear to auscultation bilaterally. HEART: Regular rate and rhythm. S1 and S2 heard. EXTREMITIES: Normal range of motion. No clubbing or cyanosis. Peripheral pulses intact. Bilateral lower extremity edema noted ASSESSMENT: Right foot osteomyelitis Nonischemic cardiopathy History of AICD implantation Chronic heart failure with reduced ejection fraction History of nonsustained ventricular tachycardia Hyperlipidemia Diabetes Chronic kidney disease Nicotine dependence History of medication noncompliance Chronic hypotension, maintained on Midodrine outpatient PLAN: Continue current cardiac medications Patient has been cleared for discharge by admitting physician this morning Patient to continue Bumex and Midodrine at discharge Patient is stable for discharge today from a cardiac perspective Nurse practitioner note has been reviewed by physician. Signing provider agrees with the documented findings, assessment, and plan of care. Objective - Vital Signs Vital signs: Vital Signs Temp 97.5 F L 06/17/23 07:17 Pulse 96 06/17/23 07:17 Resp 15 06/17/23 07:17 BP 98/72 06/17/23 07:17 Pulse Ox 99 06/17/23 07:17 FiO2 Intake & Output 06/16/23 06/17/23 06/17/23 18:59 06:59 18:59 Other: # Voids 2 4 - Labs CBC & Chem 7: 06/16/23 06:30 06/16/23 06:30 Labs: Abnormal Lab Results - Last 24 Hours (Table) 06/16/23 06/16/23 06/16/23 Range/Units 16:56 20:21 22:03 POC Glucose (mg/dL) 125 H 153 H 142 H (70-110) mg/dL 06/17/23 Range/Units 11:43 POC Glucose (mg/dL) 170 H (70-110) mg/dL Microbiology - Last 24 Hours (Table) 06/15/23 16:55 Blood Culture - Preliminary Blood 06/15/23 17:10 Blood Culture - Preliminary Blood 06/15/23 17:11 Gram Stain - Preliminary Foot - Right Wound Culture - Preliminary Presumptive Staph aureus
--- NOTE | 2023-06-17 12:37 | P.PN ---
Subjective Progress Note Date: 06/17/23 Principal diagnosis: Reason for follow-up is right heel diabetic foot infection and osteomyelitis Patient is a 53-year-old male with a past medical history significant for diabetes mellitus hyperlipidemia hypertension [place] history of diabetic foot infection with a chronic nonhealing wound to the right heel area and underlying osteomyelitis with a previous culture positive for Proteus Acinetobacter providencia and anaerobes, presented to hospital with chest pain shortness of breath and some mental status changes On today's evaluation that is 06/17/2023, the patient remains to be afebrile, the patient is breathing comfortably on room air and denies any shortness of breath, the patient denies chest pain or cough , patient denies abdominal pain, no nausea/vomiting and no diarrhea, denies pain to the right heel wound area Labs are pending from this morning Objective - Vital Signs Vital signs: Vital Signs Temp 97.5 F L 06/17/23 07:17 Pulse 96 06/17/23 07:17 Resp 15 06/17/23 07:17 BP 98/72 06/17/23 07:17 Pulse Ox 99 06/17/23 07:17 FiO2 Intake & Output 06/16/23 06/17/23 06/17/23 18:59 06:59 18:59 Other: # Voids 2 4 - Exam GENERAL DESCRIPTION: A middle-age male up in bed in no distress RESPIRATORY SYSTEM: Unlabored breathing , clear to auscultation anteriorly HEART: S1 S2 regular rate and rhythm , ABDOMEN: Soft , no tenderness EXTREMITIES: Right heel wound is currently dressed no drainage - Labs CBC & Chem 7: 06/16/23 06:30 06/16/23 06:30 Labs: Abnormal Lab Results - Last 24 Hours (Table) 06/16/23 06/16/23 06/16/23 Range/Units 16:56 20:21 22:03 POC Glucose (mg/dL) 125 H 153 H 142 H (70-110) mg/dL 06/17/23 Range/Units 11:43 POC Glucose (mg/dL) 170 H (70-110) mg/dL Microbiology - Last 24 Hours (Table) 06/15/23 16:55 Blood Culture - Preliminary Blood 06/15/23 17:10 Blood Culture - Preliminary Blood 06/15/23 17:11 Gram Stain - Preliminary Foot - Right Wound Culture - Preliminary Presumptive Staph aureus Assessment and Plan (1) Wound of foot Current Visit: Yes Status: Acute Code(s): S91.309A - UNSPECIFIED OPEN WOUND, UNSPECIFIED FOOT, INITIAL ENCOUNTER SNOMED Code(s): 778267958 (2) Foot osteomyelitis, right Current Visit: No Status: Acute Code(s): M86.9 - OSTEOMYELITIS, UNSPECIFIED SNOMED Code(s): 3832180361296798 Plan: 1patient with the right heel diabetic foot infection with underlying osteomyelitis in this patient cultures were predominantly positive for gram- negative including Proteus Providencia Streptococcus and anaerobes while the p atient has been getting IV Zosyn in the outpatient setting now presented to hospital predominantly with increasing shortness of breath and concern for mild CHF for which cardiology has been consulted overall right heel wound did not show any worsening and no foul-smelling drainage was noticed 2-patient to continue patient on Zosyn 3.375 g every 8 hours, prescription for home IV antibiotics again given to the manager case 3-local wound care to the right heel wound with slough area with Medihoney and rest of the area with Aquacel silver dressing change daily Dictation was produced using [employer] dictation software. please excuse any grammatical, word or spelling errors. Time with Patient: Less than 30
--- NOTE | 2023-06-17 13:05 | P.NPCON ---
History of Present Illness - Reason for Consult chronic renal failure - History of Present Illness Patient is a 53-year-old male with history of COPD, type 2 diabetes and hypertension, chronic kidney disease NKF stage 3 b with previous creatinine at 1.4 mg/dL. Patient had acute kidney injury in April and early May 2023 with peak creatinine at about 2.9 mg/dL. Serum creatinine had improved to 2.2 on 06/10/2023 and patient was discharged. He is readmitted with complaints of increased shortness of breath and lower extremity swelling. Good urine output Patient has right heel diabetic foot ulcer with osteomyelitis, maintained on IV antibiotics next No complaints of nausea vomiting abdominal pain or diarrhea. Patient has been voiding. No history of urine retention during last admission. Review of Systems As per HPI Past Medical History Past Medical History: Asthma, Coronary Artery Disease (CAD), Chest Pain / Angina, Heart Failure, COPD, Diabetes Mellitus, GERD/Reflux, Hyperlipidemia, Hypertension, Myocardial Infarction ([place]), Pneumonia, Sleep Apnea/CPAP/BIPAP, Supraventricular Tachycardia (SVT) Additional Past Medical History / Comment(s): Ischemic cardiomyopathy, chronic CHF, SVT, IDDM type II, KAMINI with CPAP occasionally used, chronic cervical/back pain, DJD, diabetic foot wounds x 4 months. Last Myocardial Infarction Date:: 12/11/17 History of Any Multi-Drug Resistant Organisms: MRSA Date of last positivie culture/infection: 03/10/20 MDRO Source:: MRSA TOE Past Surgical History: Adenoidectomy, AICD, Back Surgery, Cholecystectomy, EPS, Heart Catheterization, Pacemaker, Tonsillectomy Additional Past Surgical History / Comment(s): 12/10/17 cardiac cath, previous cardiac cath, 09/02/14 AICD/pacer, EGD/colonoscopy, low back surgery with fusion. Past Anesthesia/Blood Transfusion Reactions: Motion Sickness Additional Past Anesthesia/Blood Transfusion Reaction / Comment(s): Pt states he received blood with back surgery without reaction. Type of Cardiac Device: Permanent Pacemaker, AICD Device Placement Date:: 09-02-14 Past Psychological History: ADD/ADHD, Anxiety Additional Psychological History / Comment(s): Pt lives with his old son. There are cats in the home. Pt is very independent. He states he would like a walker d/t his L foot wound. He drives. Pt states he has ADHD. Pt is disabled. He has a glucometer and nebulizer. The patient worked in the past [employer] and [employer]. Smoking Status: Current every day smoker Past Alcohol Use History: Occasional Additional Past Alcohol Use History / Comment(s): patient states that he quit smoking 3 weeks ago Past Drug Use History: Marijuana Additional Drug Use History / Comment(s): Occasional marijuana use. - Past Family History Father Additional Family Medical History / Comment(s): Pt has not kept in close contact with his father for many yrs. Father was an alcoholic and pt believes he has from cirrhosis of the liver. Mother History Unknown: Yes Additional Family Medical History / Comment(s): Pt is not in contact with his mother or his father who he has heard had . Medications and Allergies Home Medications Medication Instructions Recorded Confirmed Type Albuterol Inhaler [Ventolin Hfa 2 puff INHALATION RT-QID PRN 07/06/22 06/15/23 History Inhaler] INSULIN LISPRO (humaLOG) [humaLOG] 5 - 10 unit SQ ACHS PRN 07/06/22 06/15/23 History Morphine Sulfate Ir [MSIR] 30 mg PO QID 07/06/22 06/15/23 History DULoxetine HCL [Cymbalta] 60 mg PO BID 11/18/22 06/15/23 History Cyclobenzaprine [Flexeril] 10 mg PO QID 05/14/23 06/15/23 History Zolpidem [Ambien] 10 mg PO HS PRN 05/14/23 06/15/23 History Piperacillin-Tazobactam [Zosyn] 3.375 gm IVPB Q8HR #120 each 05/22/23 06/15/23 Rx Aspirin 81 mg PO DAILY tab 05/29/23 06/15/23 Rx Atorvastatin [Lipitor] 40 mg PO DAILY #30 tab 05/29/23 06/15/23 Rx Bumetanide [BUMEX] 2 mg PO BID #120 tab 05/29/23 06/15/23 Rx Midodrine [ProAmatine] 5 mg PO AC-TID #100 tab 05/29/23 06/15/23 Rx Nicotine 14Mg/24Hr Patch [Habitrol] 1 patch TRANSDERM DAILY #14 patch 05/29/23 06/15/23 Rx Potassium Chloride ER [K-Dur 20] 20 meq PO DAILY #30 tab 05/29/23 06/15/23 Rx SILVER sulfADIAZINE CREAM 1 applic TOPICAL BID 06/04/23 06/15/23 History [Silvadene Cream] Dapagliflozin Propanediol [Farxiga] 10 mg PO DAILY #30 tab 06/10/23 06/15/23 Rx Insulin Glargine,Hum.rec.anlog 28 units SQ DAILY #0 06/10/23 06/15/23 Rx [Toujeo Solostar] Metoprolol Succinate (ER) [Toprol 25 mg PO DAILY #30 tab 06/10/23 06/15/23 Rx XL] Spironolactone [Aldactone] 25 mg PO DAILY #60 tab 06/10/23 06/15/23 Rx Allergies Allergy/AdvReac Type Severity Reaction Status Date / Time azithromycin Allergy Anaphylaxis Verified 06/15/23 19:17 gemfibrozil [From Lopid] Allergy Rash/Hives Verified 06/15/23 19:17 Physical Exam Vitals: Vital Signs Temp Pulse Resp BP Pulse Ox 06/17/23 07:17 97.5 F L 96 15 98/72 99 06/17/23 02:00 97.9 F 60 17 143/77 98 06/16/23 20:33 110/76 06/16/23 19:54 97.5 F L 89 17 95/65 06/16/23 14:03 98 F 95 17 98/65 99 Intake and Output 06/16/23 06/17/23 06/17/23 22:59 06:59 14:59 Other: # Voids 4 Patient is awake, comfortable, no acute distress Examination of the heart S1 and S2 Examination of the lungs shows decreased breath sounds at the bases Examination lower extremities shows 2-3+ edema bilaterally with chronic skin changes. Both legs are wrapped [employer] exam grossly intact Results - Lab Results Most recent lab results Calcium 9.1 mg/dL (8.7-10.3) 06/16/23 06:30 06/16/23 06:30 06/16/23 06:30 Assessment and Plan Assessment: 1. Acute kidney injury, ATN from last admission currently slightly improved. Serum creatinine staying at 1.7-1.9 mg/dL. UA shows trace protein. No hydronephrosis noted on ultrasound done on 05/16/2023. 2. Right diabetic foot ulcer with osteomyelitis maintained on antibiotics, being followed by ID 3. CK D stage III a with previous creatinine 1.4 on 06/03/2023 with multiple episodes of acute kidney injury with previous creatinine 2.2 on 06/10/2023. Maintained on farxiga 4. Chronic systolic CHF with EF of less than 20% with moderate to severe mitral regurgitation, moderate tricuspid regurgitation and severe pulmonary hypertension. Status post AICD Plan: Continue to diurese patient Continue with farxiga Repeat labs in a.m. Avoid nephrotoxic agents
--- NOTE | 2023-06-17 14:00 | P.PN ---
Progress Note - Text Progress Note Date: 06/17/23 Chief Complaint: Tired This is a 52-year-old patient, follows with Dr. Rodríguez. Chronic stable medical condition include CHF EF less than 20%, COPD, diabetes mellitus type 2, hypertension, hyperlipidemia, obstructive sleep apnea, anxiety, AICD, lower extremity venous insufficiency. Patient had lower extremity wounds and has been followed by ID and Dr. Lugo from vascular. in the hospital from May 14 through May 29. Patient had worsening wound after right foot. has been told multiple times to Dr. Lugo to proceed with amputation. Last admission he also was on IV Bumex drip and dobutamine drip for congestive heart failure. Was discharged home on antibiotics. Admitted from June 05 through June 10. Presented again with worsening wound. malodorous drainage. Denies fever and chills. Tired. Does not want surgery. Reluctant. And/or nystagmus and need for the same. It was explained to her that antibiotics are not helping. Patient was seen by cardiology Dr. Lugo from vascular. Patient now presents for just feeling tired. Not able to sleep. Patient also got chronic low back pain which is raised up off and on. His edema is relatively controlled. No fever no chills. Had decreased appetite at home. June 17: Patient eating better. Tired. Breathing stable. Spoke this morning with the patient about amputation again. Later was informed that patient's agreeable to proceed for the same. Patient is high risk for surgery with no absolute cardiac medications. Patient understands the same. Cardiology is following. I did speak to Dr. Kaur from vascular. Active Medications Acetaminophen (Acetaminophen Tab 325 Mg Tab) 650 mg PO Q6HR PRN PRN Reason: Mild Pain or Fever > 100.5 Last Admin: 06/17/23 04:01 Dose: 650 mg Albuterol Sulfate (Albuterol Nebulized 2.5 Mg/3 Ml) 2.5 mg INHALATION RT-QID PRN PRN Reason: Shortness Of Breath Alprazolam (Alprazolam 0.25 Mg Tab) 0.25 mg PO Q6HR PRN PRN Reason: Anxiety Last Admin: 06/16/23 15:16 Dose: 0.25 mg Aspirin (Aspirin 81 Mg) 81 mg PO DAILY [facility] Last Admin: 06/17/23 08:33 Dose: 81 mg Atorvastatin Calcium (Atorvastatin 40 Mg Tab) 40 mg PO DAILY [facility] Last Admin: 06/17/23 08:33 Dose: 40 mg Calcium Carbonate/Glycine (Calcium Carbonate 500 Mg Chewable) 1,000 mg PO Q4HR PRN PRN Reason: Dyspepsia Cyclobenzaprine HCl (Cyclobenzaprine 10 Mg Tab) 10 mg PO QID [facility] Last Admin: 06/17/23 12:50 Dose: 10 mg Dapagliflozin (Dapagliflozin Propanediol 10 Mg Tablet) 10 mg PO DAILY [facility] Last Admin: 06/17/23 08:34 Dose: 10 mg Dextrose/Water (Dextrose 50% Syringe 50 Ml) 50 ml IVP PER PROTOCOL PRN; Protocol PRN Reason: Hypoglycemia Dextrose/Water (Dextrose 50% Syringe 50 Ml) 25 ml IVP PER PROTOCOL PRN; Protocol PRN Reason: Hypoglycemia Duloxetine HCl (Duloxetine Hcl 60 Mg Capsule.Dr) 60 mg PO BID [facility] Last Admin: 06/17/23 08:31 Dose: 60 mg Enoxaparin Sodium (Enoxaparin 40 Mg/0.4 Ml Syringe) 40 mg SQ DAILY [facility] Last Admin: 06/17/23 08:28 Dose: 40 mg Furosemide (Furosemide 10 Mg/Ml 4 Ml Vial) 40 mg IV DAILY [facility] Piperacillin Sod/Tazobactam (Sod 3.375 gm/ Sodium Chloride) 100 mls @ 25 mls/hr IVPB Q8HR [facility]; Protocol Last Admin: 06/17/23 08:28 Dose: 25 mls/hr Insulin Aspart (Insulin Aspart (Novolog) 100 Unit/Ml Vial) 0 unit SQ ACHS [facility]; Protocol Last Admin: 06/17/23 12:52 Dose: 2 unit Insulin Detemir (Insulin Detemir (Levemir) 100 Unit/Ml Syr) 28 unit SQ DAILY@0700 [facility] Last Admin: 06/17/23 06:49 Dose: 28 unit Lactulose (Lactulose 20 Gm/30 Ml Cup) 20 gm PO DAILY PRN PRN Reason: Constipation Lidocaine (Lidocaine 5% Patch) 1 patch TOPICAL DAILY [facility]; Protocol Last Admin: 06/17/23 08:30 Dose: 1 patch Melatonin (Melatonin 3 Mg Tablet) 3 mg PO HS PRN PRN Reason: Insomnia Metoprolol Succinate (Metoprolol Succinate (Er) 25 Mg Tab.Er.24h) 25 mg PO DAILY [facility] Last Admin: 06/17/23 08:32 Dose: 25 mg Midodrine (Midodrine 5 Mg Tab) 5 mg PO AC-TID [facility] Morphine Sulfate (Morphine Sulfate Ir 15 Mg Tablet) 30 mg PO QID [facility] Last Admin: 06/17/23 12:50 Dose: 30 mg Naloxone HCl (Naloxone 0.4 Mg/Ml 1 Ml Vial) 0.2 mg IV Q2M PRN PRN Reason: Opioid Reversal Nicotine (Nicotine 14mg/24hr Patch) 1 patch TRANSDERM DAILY [facility] Last Admin: 06/17/23 08:33 Dose: 1 patch Ondansetron HCl (Ondansetron 4 Mg/2 Ml Vial) 4 mg IVP Q8HR PRN PRN Reason: Nausea And Vomiting Potassium Chloride (Potassium Chloride Er 20 Meq Tab.Er) 20 meq PO DAILY [facility] Last Admin: 06/17/23 08:32 Dose: 20 meq Spironolactone (Spironolactone 25 Mg Tab) 25 mg PO DAILY [facility] Last Admin: 06/17/23 08:32 Dose: 25 mg Zolpidem Tartrate (Zolpidem 5 Mg Tab) 10 mg PO HS PRN PRN Reason: Insomnia Social history: Lives with his 20-year-old son. Disabled. 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 Smoking 2 packs a day for most of his life . Stop drinking heavy alcohol about 20 years ago. Has done marijuana. Physical examination: VITAL SIGNS: 97.5, 96, 15, 98/72, 99% room air GENERAL: Sitting at the edge of the bed, tired EYES: Pupils equal. Conjunctiva normal. HEENT: External appearance of nose and ears normal, oral cavity grossly normal. NECK: JVD unable to assess; masses not palpable. HEART: First and second heart sounds are normal; some edema LUNGS: Respiratory rate normal; diminished breath sounds ABDOMEN: Soft, nontender, liver spleen not palpable, no masses palpable. PSYCH: Alert and oriented x3; mood and affect anxious. NEUROLOGICAL: Cranial nerves grossly intact. No facial asymmetry DERMATOLOGICAL: Right foot wound. Details in nursing notes. INVESTIGATIONS, reviewed in the clinical context: June 16: White count 12.8 hemoglobin 10.8 platelets 218 sodium 132 potassium 4.4 BUN 51.2 creatinine 1.9 blood glucose 275 EKG tracing personally reviewed by me-nonspecific T-wave changes. Chest x-ray film personally reviewed by me-venous prominence. Cardiomegaly Assessment and plan: -Acute on chronic congestive heart failure nonischemic cardiomyopathy systolic dysfunction EF less than 20%: Stabilized IV Lasix. Aldactone 25 mg a day AICD. Fluid restriction Being followed by cardiology and nephrology -Acute on chronic recurrent right lower leg cellulitis, infected right heel diabetic ulcer with prior history of debridement. Reportedly, Has been told for amputation before. Not improving Wound swab for Gram stain and culture. Proteus vulgaris, Streptococcus agalactiae group B-previously IV [id number] complete for a total of 6 weeks Patient has not healed with antibiotics and debridement alone. Does need amputation as discussed previously with Dr. Lugo. Patient has been reluctant Today, patient has agreed to proceed for surgery.: Being followed by cardiology. Patient is a high risk for surgery but medically stable to proceed for the same with no cardiac medications. This was discussed with the patient. Believe perioperative cardiology and pulmonary monitoring. - COPD in a previous smoker Ventolin. Add DuoNeb. -Diabetes mellitus type 2 chronically on insulin, uncontrolled with [id number] Levemir 35 units subcu daily . Diabetic diet. Accu-Cheks and sliding scale DC NovoLog -Hyperlipidemia Lipitor -Chronic kidney disease stage III from diabetic nephropathy and nephrosclerosis Baseline creatinine of 1.2 on May 14. -Acute kidney injury likely ATN from cardiorenal syndrome : Follow renal function. Nephrology following -Hyponatremia Fluid restriction -Chronic low back pain. Patient's had pain on and off for about 10 years. Has had prior surgery. Does not remember who did the surgery. topical lidocaine patch. -Essential hypertension Toprol XL 25 mg a day -Obstructive sleep apnea sometimes uses CPAP machine -Diabetic peripheral neuropathy -Anxiety Ativan when necessary -DJD Tylenol when necessary -AICD -Lower extremity chronic venous insufficiency -Full code Patient is agreed to proceed for surgery. Spoke with Dr. Lugo from vascular. He'll schedule the same.
--- NOTE | 2023-06-17 14:07 | P.GSCN ---
History of Present Illness History of present illness: 53-year-old gentleman known to us from the past patient has a large wound on his right heel and plantar aspect of the foot patient has been coming to the wound clinic clinic and has multiple admissions the past patient refusing any major surgical intervention in the past patient be admitted with history of some weakness CT scan that was negative for any intracranial bleed. Medical history history of coronary artery disease ejection fraction is less than 28 patient also has a COPD diabetes hypertension and graft on examination patient was seen in his room chest patient has a crackles the bilateral Abdomen is soft nontender Vascular patient has a large wound on the right foot heel patient also has a marked redness and some multiple superficial ulcer on the right lower extremity femorals are deep not palpable Patient is under care of infectious disease with IV antibiotic Plan plan is continue with IV antibiotic and local wound care follow with you Past Medical History Past Medical History: Asthma, Coronary Artery Disease (CAD), Chest Pain / Angina, Heart Failure, COPD, Diabetes Mellitus, GERD/Reflux, Hyperlipidemia, Hypertension, Myocardial Infarction ([place]), Pneumonia, Sleep Apnea/CPAP/BIPAP, Supraventricular Tachycardia (SVT) Additional Past Medical History / Comment(s): Ischemic cardiomyopathy, chronic CHF, SVT, IDDM type II, KAMINI with CPAP occasionally used, chronic cervical/back pain, DJD, diabetic foot wounds x 4 months. Last Myocardial Infarction Date:: 12/11/17 History of Any Multi-Drug Resistant Organisms: MRSA Year Discovered:: 03/10/20 MDRO Source:: MRSA TOE Past Surgical History: Adenoidectomy, AICD, Back Surgery, Cholecystectomy, EPS, Heart Catheterization, Pacemaker, Tonsillectomy Additional Past Surgical History / Comment(s): 12/10/17 cardiac cath, previous cardiac cath, 09/02/14 AICD/pacer, EGD/colonoscopy, low back surgery with fusion. Past Anesthesia/Blood Transfusion Reactions: Motion Sickness Additional Past Anesthesia/Blood Transfusion Reaction / Comm: Pt states he received blood with back surgery without reaction. Type of Cardiac Device: Permanent Pacemaker, AICD Device Placement Date:: 09-02-14 Past Psychological History: ADD/ADHD, Anxiety Additional Psychological History / Comment(s): Pt lives with his old son. There are cats in the home. Pt is very independent. He states he would like a walker d/t his L foot wound. He drives. Pt states he has ADHD. Pt is disabled. He has a glucometer and nebulizer. The patient worked in the past building [employer]. Smoking Status: Current every day smoker Past Alcohol Use History: Occasional Additional Past Alcohol Use History / Comment(s): patient states that he quit smoking 3 weeks ago Past Drug Use History: Marijuana Additional Drug Use History / Comment(s): Occasional marijuana use. - Past Family History Father Additional Family Medical History / Comment(s): Pt has not kept in close contact with his father for many yrs. Father was an alcoholic and pt believes he has from cirrhosis of the liver. Mother History Unknown: Yes Additional Family Medical History / Comment(s): Pt is not in contact with his mother or his father who he has heard had . Medications and Allergies Home Medications Medication Instructions Recorded Confirmed Type Albuterol Inhaler [Ventolin Hfa 2 puff INHALATION RT-QID PRN 07/06/22 06/15/23 History Inhaler] INSULIN LISPRO (humaLOG) [humaLOG] 5 - 10 unit SQ ACHS PRN 07/06/22 06/15/23 History Morphine Sulfate Ir [MSIR] 30 mg PO QID 07/06/22 06/15/23 History DULoxetine HCL [Cymbalta] 60 mg PO BID 11/18/22 06/15/23 History Cyclobenzaprine [Flexeril] 10 mg PO QID 05/14/23 06/15/23 History Zolpidem [Ambien] 10 mg PO HS PRN 05/14/23 06/15/23 History Piperacillin-Tazobactam [Zosyn] 3.375 gm IVPB Q8HR #120 each 05/22/23 06/15/23 Rx Aspirin 81 mg PO DAILY tab 05/29/23 06/15/23 Rx Atorvastatin [Lipitor] 40 mg PO DAILY #30 tab 05/29/23 06/15/23 Rx Bumetanide [BUMEX] 2 mg PO BID #120 tab 05/29/23 06/15/23 Rx Midodrine [ProAmatine] 5 mg PO AC-TID #100 tab 05/29/23 06/15/23 Rx Nicotine 14Mg/24Hr Patch [Habitrol] 1 patch TRANSDERM DAILY #14 patch 05/29/23 06/15/23 Rx Potassium Chloride ER [K-Dur 20] 20 meq PO DAILY #30 tab 05/29/23 06/15/23 Rx SILVER sulfADIAZINE CREAM 1 applic TOPICAL BID 06/04/23 06/15/23 History [Silvadene Cream] Dapagliflozin Propanediol [Farxiga] 10 mg PO DAILY #30 tab 06/10/23 06/15/23 Rx Insulin Glargine,Hum.rec.anlog 28 units SQ DAILY #0 06/10/23 06/15/23 Rx [Toujeo Solostar] Metoprolol Succinate (ER) [Toprol 25 mg PO DAILY #30 tab 06/10/23 06/15/23 Rx XL] Spironolactone [Aldactone] 25 mg PO DAILY #60 tab 06/10/23 06/15/23 Rx Allergies Allergy/AdvReac Type Severity Reaction Status Date / Time azithromycin Allergy Anaphylaxis Verified 06/15/23 19:17 gemfibrozil [From Lopid] Allergy Rash/Hives Verified 06/15/23 19:17 Surgical - Exam Vital Signs Temp Pulse Resp Pulse Ox 97.0 F L 68 24 97 06/15/23 14:42 06/15/23 14:42 06/15/23 14:42 06/15/23 14:42 Results - Labs 06/16/23 06:30 06/16/23 06:30 Abnormal Lab Results - Last 24 Hours (Table) 06/16/23 06/16/23 06/16/23 Range/Units 16:56 20:21 22:03 POC Glucose (mg/dL) 125 H 153 H 142 H (70-110) mg/dL 06/17/23 Range/Units 11:43 POC Glucose (mg/dL) 170 H (70-110) mg/dL Microbiology - Last 24 Hours (Table) 06/15/23 16:55 Blood Culture - Preliminary Blood 06/15/23 17:10 Blood Culture - Preliminary Blood 06/15/23 17:11 Gram Stain - Preliminary Foot - Right Wound Culture - Preliminary Presumptive Staph aureus
[2023-06-17 16:46] LABS: Glucose,Whole Blood 140 mg/dL (70-110)
[2023-06-17] MEDS: MIDODRINE 5 MG TAB PO SCH (17:11)
[2023-06-17] MEDS: IPRATROPIUM-ALBUTEROL 3 ML NEB INHALATION SCH ×2 (17:45→21:34)
[2023-06-17 20:46] LABS: Glucose,Whole Blood 210 mg/dL (70-110)
[2023-06-18] MEDS: PIPERACILLIN-TAZOBACTAM 3.375 GM in SODIUM CHLORIDE 0.9% 100 ML IVPB SCH ×4 (00:31→23:50)
[2023-06-18 06:11] LABS: Glucose,Whole Blood 80 mg/dL (70-110)
[2023-06-18] MEDS: INSULIN ASPART (NovoLOG) 100 UNIT/ML VIAL SQ SCH ×4 (06:12→21:45)
[2023-06-18] MEDS: MIDODRINE 5 MG TAB PO SCH ×3 (06:46→16:57)
[2023-06-18] MEDS: INSULIN DETEMIR (LEVEMIR) 100 UNIT/ML SYR SQ SCH (06:46)
[2023-06-18 07:34] LABS: Anisocytosis Slight; Basophils # (A) 0.1 k/uL (0-0.2); Basophils % (A) 1 %; Eosinophils # (A) 0.9 k/uL (0-0.7); Eosinophils % (A) 9 %; HGB 11.8 gm/dL (13.0-17.5); Hypochromasia Marked; Lymphocytes # (A) 1.6 k/uL (1.0-4.8); Lymphocytes % (A) 15 %; MCH 28.5 pg (25.0-35.0); MCV 91.7 fL (80.0-100.0); Mean Platelet Volume 9.4; Monocytes # (A) 0.6 k/uL (0-1.0); Monocytes % (A) 6 %; Neutrophils # (A) 7.4 k/uL (1.3-7.7); Neutrophils % (A) 68 %; Platelet Count 208 k/uL (150-450); RBC 4.15 m/uL (4.30-5.90); RDW 16.2 % (11.5-15.5); WBC 10.9 k/uL (3.8-10.6)
[2023-06-18 08:02] LABS: ALT 44 U/L (4-49); AST 39 U/L (17-59); African American GFR (CKD) 43 (>60 ml/min/1.73 sqM); Albumin/Globulin Ratio 0.9; Alkaline Phosphatase 195 U/L (38-126); Anion Gap 19 mmol/L; Blood Urea Nitrogen 57 mg/dL (9-20); Carbon Dioxide 16 mmol/L (22-30); Chloride 101 mmol/L (98-107); Globulin 4.3 g/dL; Glucose 76 mg/dL (74-99); Non-African American GFR(CKD) 37 (>60 ml/min/1.73 sqM); Potassium 4.6 mmol/L (3.5-5.1); Sodium 136 mmol/L (137-145); Total Bilirubin 1.1 mg/dL (0.2-1.3); Total Protein 8.3 g/dL (6.3-8.2)
[2023-06-18] MEDS: ATORVASTATIN 40 MG TAB PO SCH (09:05)
[2023-06-18] MEDS: POTASSIUM CHLORIDE ER 20 MEQ TAB.ER PO SCH (09:05)
[2023-06-18] MEDS: CYCLOBENZAPRINE 10 MG TAB PO SCH ×4 (09:05→21:52)
[2023-06-18] MEDS: SPIRONOLACTONE 25 MG TAB PO SCH (09:05)
[2023-06-18] MEDS: FUROSEMIDE 10 MG/ML 4 ML VIAL IV SCH (09:05)
[2023-06-18] MEDS: LIDOCAINE 5% PATCH TOPICAL SCH (09:05)
[2023-06-18] MEDS: MORPHINE SULFATE IR 15 MG TABLET PO SCH ×4 (09:05→21:52)
[2023-06-18] MEDS: ASPIRIN 81 MG PO SCH (09:05)
[2023-06-18] MEDS: ENOXAPARIN 40 MG/0.4 ML SYRINGE SQ SCH (09:05)
[2023-06-18] MEDS: DAPAGLIFLOZIN PROPANEDIOL 10 MG TABLET PO SCH (09:05)
[2023-06-18] MEDS: DULoxetine HCL 60 MG CAPSULE.DR PO SCH ×2 (09:05→21:52)
[2023-06-18] MEDS: NICOTINE 14MG/24HR PATCH TRANSDERM SCH (09:06)
[2023-06-18] MEDS: METOPROLOL SUCCINATE (ER) 25 MG TAB.ER.24H PO SCH (09:06)
[2023-06-18] MEDS: IPRATROPIUM-ALBUTEROL 3 ML NEB INHALATION SCH ×4 (09:35→21:17)
[2023-06-18 10:52] LABS: African American GFR (CKD) 42 (>60 ml/min/1.73 sqM); Anion Gap 18 mmol/L; Blood Urea Nitrogen 56 mg/dL (9-20); Carbon Dioxide 16 mmol/L (22-30); Chloride 102 mmol/L (98-107); Glucose 78 mg/dL (74-99); Non-African American GFR(CKD) 37 (>60 ml/min/1.73 sqM); Potassium 4.7 mmol/L (3.5-5.1); Sodium 136 mmol/L (137-145)
[2023-06-18 11:33] LABS: Glucose,Whole Blood 188 mg/dL (70-110)
--- NOTE | 2023-06-18 12:15 | P.PN ---
Subjective Patient is seen for follow-up for acute kidney injury and top of chronic kidney disease stage IIIB with previous episodes of acute kidney injury during his last hospitalization. Admitted this time with shortness of breath and volume overload. Patient is currently being diuresed. Serum creatinine has been fairly stable at 1.9-2 mg/dL. No significant complaints today. Objective - Vital Signs Vital signs: Vital Signs Temp 97.7 F 06/18/23 01:56 Pulse 93 06/18/23 09:43 Resp 18 06/18/23 07:43 BP 128/80 06/18/23 07:43 Pulse Ox 100 06/18/23 07:43 FiO2 Intake & Output 06/17/23 06/18/23 06/18/23 18:59 06:59 18:59 Other: # Voids 3 4 - Exam Patient is awake, comfortable, no acute distress Examination of the heart S1 and S2 Examination of the lungs shows decreased breath sounds at the bases Examination lower extremities shows 2-3+ edema bilaterally with chronic skin changes. Both legs are wrapped [employer] exam grossly intact - Labs CBC & Chem 7: 06/18/23 07:18 06/18/23 07:18 Labs: Abnormal Lab Results - Last 24 Hours (Table) 06/17/23 06/17/23 06/18/23 Range/Units 16:45 20:45 07:18 WBC 10.9 H (3.8-10.6) k/uL RBC 4.15 L (4.30-5.90) m/uL Hgb 11.8 L (13.0-17.5) gm/dL Hct 38.0 L (39.0-53.0) % RDW 16.2 H (11.5-15.5) % Eosinophils # 0.9 H (0-0.7) k/uL Sodium (137-145) mmol/L Carbon Dioxide (22-30) mmol/L BUN (9-20) mg/dL Creatinine (0.66-1.25) mg/dL POC Glucose (mg/dL) 140 H 210 H (70-110) mg/dL Alkaline Phosphatase (38-126) U/L Total Protein (6.3-8.2) g/dL 06/18/23 06/18/23 06/18/23 Range/Units 07:18 07:18 11:32 WBC (3.8-10.6) k/uL RBC (4.30-5.90) m/uL Hgb (13.0-17.5) gm/dL Hct (39.0-53.0) % RDW (11.5-15.5) % Eosinophils # (0-0.7) k/uL Sodium 136 L 136 L (137-145) mmol/L Carbon Dioxide 16 L 16 L (22-30) mmol/L BUN 57 H 56 H (9-20) mg/dL Creatinine 1.98 H 2.01 H (0.66-1.25) mg/dL POC Glucose (mg/dL) 188 H (70-110) mg/dL Alkaline Phosphatase 195 H (38-126) U/L Total Protein 8.3 H (6.3-8.2) g/dL Microbiology - Last 24 Hours (Table) 06/15/23 16:55 Blood Culture - Preliminary Blood 06/15/23 17:10 Blood Culture - Preliminary Blood 06/15/23 17:11 Anaerobic Culture - Preliminary Foot - Right 06/15/23 17:11 Gram Stain - Final Foot - Right Wound Culture - Final Methicillin resist S. aureus Assessment and Plan Assessment: 1. Acute kidney injury, ATN from last admission currently slightly improved. Serum creatinine staying at 1.7-1.9 mg/dL. UA shows trace protein. No hydronephrosis noted on ultrasound done on 05/16/2023. Maintained on IV diuretics 2. Right diabetic foot ulcer with osteomyelitis maintained on antibiotics, being followed by ID 3. CK D stage III a with previous creatinine 1.4 on 06/03/2023 with multiple episodes of acute kidney injury with previous creatinine 2.2 on 06/10/2023. Maintained on farxiga 4. Chronic systolic CHF with EF of less than 20% with moderate to severe mitral regurgitation, moderate tricuspid regurgitation and severe pulmonary hypertension. Status post AICD 5. Volume overload Plan: Continue to diurese patient Continue with farxiga Repeat labs in a.m. Avoid nephrotoxic agents
[2023-06-18] MEDS: ONDANSETRON 4 MG/2 ML VIAL IVP PRN (12:47)
--- NOTE | 2023-06-18 14:41 | P.PN ---
Subjective Progress Note Date: 06/18/23 Principal diagnosis: Reason for follow-up is right heel diabetic foot infection and osteomyelitis Patient is a 53-year-old male with a past medical history significant for diabetes mellitus hyperlipidemia hypertension [place] history of diabetic foot infection with a chronic nonhealing wound to the right heel area and underlying osteomyelitis with a previous culture positive for Proteus Acinetobacter providencia and anaerobes, presented to hospital with chest pain shortness of breath and some mental status changes On today's evaluation that is 06/18/2023, the patient continues to be afebrile, the patient is breathing comfortably on room air without the need for supp lemental oxygen, the patient denies shortness of breath chest pain and no significant cough , patient is complaining of some nausea but no vomiting, no abdominal pain and no diarrhea, the patient denies pain to the right heel wound area Patient did have a white count of 10.9, creatinine is 2.01, local culture growing MRSA Objective - Vital Signs Vital signs: Vital Signs Temp 97.7 F 06/18/23 01:56 Pulse 90 06/18/23 12:33 Resp 18 06/18/23 07:43 BP 128/80 06/18/23 07:43 Pulse Ox 100 06/18/23 07:43 FiO2 Intake & Output 06/17/23 06/18/23 06/18/23 18:59 06:59 18:59 Other: # Voids 3 4 - Exam GENERAL DESCRIPTION: A middle-age male up in bed in no distress RESPIRATORY SYSTEM: Unlabored breathing , clear to auscultation anteriorly HEART: S1 S2 regular rate and rhythm , ABDOMEN: Soft , no tenderness EXTREMITIES: Right heel wound is currently dressed no drainage - Labs CBC & Chem 7: 06/18/23 07:18 06/18/23 07:18 Labs: Abnormal Lab Results - Last 24 Hours (Table) 06/17/23 06/17/23 06/18/23 Range/Units 16:45 20:45 07:18 WBC 10.9 H (3.8-10.6) k/uL RBC 4.15 L (4.30-5.90) m/uL Hgb 11.8 L (13.0-17.5) gm/dL Hct 38.0 L (39.0-53.0) % RDW 16.2 H (11.5-15.5) % Eosinophils # 0.9 H (0-0.7) k/uL Sodium (137-145) mmol/L Carbon Dioxide (22-30) mmol/L BUN (9-20) mg/dL Creatinine (0.66-1.25) mg/dL POC Glucose (mg/dL) 140 H 210 H (70-110) mg/dL Alkaline Phosphatase (38-126) U/L Total Protein (6.3-8.2) g/dL 06/18/23 06/18/23 06/18/23 Range/Units 07:18 07:18 11:32 WBC (3.8-10.6) k/uL RBC (4.30-5.90) m/uL Hgb (13.0-17.5) gm/dL Hct (39.0-53.0) % RDW (11.5-15.5) % Eosinophils # (0-0.7) k/uL Sodium 136 L 136 L (137-145) mmol/L Carbon Dioxide 16 L 16 L (22-30) mmol/L BUN 57 H 56 H (9-20) mg/dL Creatinine 1.98 H 2.01 H (0.66-1.25) mg/dL POC Glucose (mg/dL) 188 H (70-110) mg/dL Alkaline Phosphatase 195 H (38-126) U/L Total Protein 8.3 H (6.3-8.2) g/dL Microbiology - Last 24 Hours (Table) 06/15/23 16:55 Blood Culture - Preliminary Blood 06/15/23 17:10 Blood Culture - Preliminary Blood 06/15/23 17:11 Anaerobic Culture - Preliminary Foot - Right 06/15/23 17:11 Gram Stain - Final Foot - Right Wound Culture - Final Methicillin resist S. aureus Assessment and Plan (1) Wound of foot Current Visit: Yes Status: Acute Code(s): S91.309A - UNSPECIFIED OPEN WOUND, UNSPECIFIED FOOT, INITIAL ENCOUNTER SNOMED Code(s): 534007941 (2) Foot osteomyelitis, right Current Visit: No Status: Acute Code(s): M86.9 - OSTEOMYELITIS, UNSPECIFIED SNOMED Code(s): 7980169661455114 Plan: 1patient with the right heel diabetic foot infection with underlying osteomyelitis in this patient cultures were predominantly positive for gram- negative including Proteus Providencia Streptococcus and anaerobes while the patient has been getting IV Zosyn in the outpatient setting now presented to hospital predominantly with increasing shortness of breath and concern for mild CHF for which cardiology has been consulted overall right heel wound did not show any worsening and no foul-smelling drainage was noticed 2-patient to continue patient on Zosyn 3.375 g every 8 hours on the basis of previous culture with new culture now showing MRSA we will add daptomycin, patient seemed to have agree for amputation and may not need long-term antibiotic therapy after amputation Dictation was produced using [employer] dictation software. please excuse any grammatical, word or spelling errors. Time with Patient: Less than 30
[2023-06-18 16:37] LABS: Glucose,Whole Blood 127 mg/dL (70-110)
--- NOTE | 2023-06-18 16:39 | P.PN ---
Subjective Progress Note Date: 06/18/23 Patient is admitted for chronic right heel wound with osteomyelitis; continues on IV zosyn for a total of 6 weeks of antibiotic therapy. He continues to have lower extremity edema and remains on IV lasix daily and being followed closely by nephrology. Patient has been offered amputation in the past and has refused. Now he is will to undergo the amputation, Dr. Kaur following. There is concern for diminished/absent femoral pulse on the right leg. Scheduled for arterial ultrasound today. Labs today reveal white count 10.9, hemoglobin 11.8, sodium 136, potassium 4.7, BUN 56, creatinine 2.01. Review of Systems Constitutional: Denied any fatigue denied any fever. Cardio vascular: denied any chest pain, palpitations Gastrointestinal: denied any nausea, vomiting, diarrhea Pulmonary: Denied any shortness of breath cough Neurologic denied any new focal deficits All inpatient medications were reviewed and appropriate changes in these medications as dictated in the interval history and assessment and plan. PHYSICAL EXAMINATION: GENERAL: The patient is alert and oriented x3, not in any acute distress. Well developed, well nourished. HEENT: Pupils are round and equally reacting to light. EOMI. No scleral icterus. No conjunctival pallor. Normocephalic, atraumatic. No pharyngeal erythema. No thyromegaly. CARDIOVASCULAR: S1 and S2 present. No murmurs, rubs, or gallops. PULMONARY: Chest is clear to auscultation, no wheezing or crackles. ABDOMEN: Soft, nontender, nondistended, normoactive bowel sounds. No palpable organomegaly. MUSCULOSKELETAL: No joint swelling or deformity. EXTREMITIES: No cyanosis, clubbing, or pedal edema. Dressing intact to right foot. +1 pitting edema and erythema to the right leg. NEUROLOGICAL: Gross neurological examination did not reveal any focal deficits. SKIN: No rashes. Assessment -Acute on chronic congestive heart failure nonischemic cardiomyopathy/systolic dysfunction EF less than 20% on IV lasix -Acute on chronic recurrent right lower leg cellulitis -infected right heel diabetic ulcer with prior history of debridement. Culture showing MRSA. Nonhealing. Patient now agreeable to amputation. Vascular following -Lower extremity chronic venous insufficiency -Hx of COPD -Diabetes mellitus type 2 chronically on insulin, uncontrolled with hypoglycemia -Hyperlipidemia -Chronic kidney disease stage III from diabetic nephropathy and nephrosclerosis -Acute kidney injury likely ATN from cardiorenal syndrome : -Hyponatremia on fluid restriction -Chronic low back pain. -Essential hypertension -Obstructive sleep apnea sometimes uses CPAP machine -Diabetic peripheral neuropathy -Anxiety -DJD -AICD -Lower extremity chronic venous insufficiency GI prophylaxis: Pepcid DVT prophylaxis: Lovenox Full Code Plan Continue IV lasix per nephrology Continues on 1500 CC fluid restriction and renal diet Continues on IV zosyn per prior recommendations on 6 week course of IV antibiotic therapy; IV daptomycin added and ID following closely Vascular surgery following patient is now agreeable to amputation; scheduled to undergo arterial US of the right leg today Continue local wound care Continue oxygen support Repeat labs in AM The impression and plan of care has been dictated by Fozia Lopez Nurse Practitioner as directed. Dr. Megan MD I have performed a history and physical examination and medical decision making of this patient, discussed the same with the dictator, and agree with the dictators assessment and plan as written, documented as a scribe. Based on total visit time, I have performed more than 50% of this visit. Objective - Vital Signs Vital signs: Vital Signs Temp 97.7 F 06/18/23 01:56 Pulse 97 06/18/23 07:43 Resp 18 06/18/23 07:43 BP 128/80 06/18/23 07:43 Pulse Ox 100 06/18/23 07:43 FiO2 Intake & Output 06/17/23 06/18/23 06/18/23 18:59 06:59 18:59 Other: # Voids 3 4 - Labs CBC & Chem 7: 06/18/23 07:18 06/18/23 07:18 Labs: Abnormal Lab Results - Last 24 Hours (Table) 06/17/23 06/17/23 06/17/23 Range/Units 11:43 16:45 20:45 WBC (3.8-10.6) k/uL RBC (4.30-5.90) m/uL Hgb (13.0-17.5) gm/dL Hct (39.0-53.0) % RDW (11.5-15.5) % Eosinophils # (0-0.7) k/uL Sodium (137-145) mmol/L Carbon Dioxide (22-30) mmol/L BUN (9-20) mg/dL Creatinine (0.66-1.25) mg/dL POC Glucose (mg/dL) 170 H 140 H 210 H (70-110) mg/dL Alkaline Phosphatase (38-126) U/L Total Protein (6.3-8.2) g/dL 06/18/23 06/18/23 Range/Units 07:18 07:18 WBC 10.9 H (3.8-10.6) k/uL RBC 4.15 L (4.30-5.90) m/uL Hgb 11.8 L (13.0-17.5) gm/dL Hct 38.0 L (39.0-53.0) % RDW 16.2 H (11.5-15.5) % Eosinophils # 0.9 H (0-0.7) k/uL Sodium 136 L (137-145) mmol/L Carbon Dioxide 16 L (22-30) mmol/L BUN 57 H (9-20) mg/dL Creatinine 1.98 H (0.66-1.25) mg/dL POC Glucose (mg/dL) (70-110) mg/dL Alkaline Phosphatase 195 H (38-126) U/L Total Protein 8.3 H (6.3-8.2) g/dL Microbiology - Last 24 Hours (Table) 06/15/23 16:55 Blood Culture - Preliminary Blood 06/15/23 17:10 Blood Culture - Preliminary Blood 06/15/23 17:11 Anaerobic Culture - Preliminary Foot - Right 06/15/23 17:11 Gram Stain - Final Foot - Right Wound Culture - Final Methicillin resist S. aureus Assessment and Plan Time with Patient: Less than 30
--- NOTE | 2023-06-18 16:48 | US ---
EXAMINATION TYPE: US arterial LE single level DATE OF EXAM: 06/18/2023 4:22 PM CLINICAL INDICATION: Male, 53 years old with history of check femoral artery; Wound right heel and le ft foot. History of: Smoker: Previous Hypertension: Yes Diabetic: Yes Hyperlipidemia: Yes TIA/CVA: ??? Previous Vascular Surgery: No [place]: Yes Vascular Ulcers: Both Doppler Waveforms: Right: Multiphasic Left: Multiphasic Right Brachial Pressure: Left Brachial Pressure: 95 Ankle-Brachial Indices: Right: 1.29 Left: 1.04 Toe Brachial Indices: Right: 0.67 Left: 0.60 IMPRESSION: Ankle-brachial indices within normal limits.
[2023-06-18 20:18] LABS: Glucose,Whole Blood 122 mg/dL (70-110)
[2023-06-18] MEDS: FAMOTIDINE 20 MG TAB PO SCH (21:52)
[2023-06-19 06:02] LABS: Glucose,Whole Blood 135 mg/dL (70-110)
[2023-06-19] MEDS: INSULIN ASPART (NovoLOG) 100 UNIT/ML VIAL SQ SCH ×4 (06:48→21:31)
[2023-06-19] MEDS: INSULIN DETEMIR (LEVEMIR) 100 UNIT/ML SYR SQ SCH (06:52)
[2023-06-19] MEDS: MIDODRINE 5 MG TAB PO SCH ×3 (06:52→17:09)
[2023-06-19] MEDS: IPRATROPIUM-ALBUTEROL 3 ML NEB INHALATION SCH ×4 (07:59→20:39)
[2023-06-19] MEDS: FUROSEMIDE 10 MG/ML 4 ML VIAL IV SCH ×2 (09:20→21:42)
[2023-06-19] MEDS: DULoxetine HCL 60 MG CAPSULE.DR PO SCH ×2 (09:25→21:42)
[2023-06-19] MEDS: METOPROLOL SUCCINATE (ER) 25 MG TAB.ER.24H PO SCH (09:25)
[2023-06-19] MEDS: CYCLOBENZAPRINE 10 MG TAB PO SCH ×4 (09:25→21:42)
[2023-06-19] MEDS: SPIRONOLACTONE 25 MG TAB PO SCH (09:26)
[2023-06-19] MEDS: FAMOTIDINE 20 MG TAB PO SCH (09:26)
[2023-06-19] MEDS: POTASSIUM CHLORIDE ER 20 MEQ TAB.ER PO SCH (09:26)
[2023-06-19] MEDS: MORPHINE SULFATE IR 15 MG TABLET PO SCH ×4 (09:26→21:42)
[2023-06-19] MEDS: ASPIRIN 81 MG PO SCH (09:26)
[2023-06-19] MEDS: DAPAGLIFLOZIN PROPANEDIOL 10 MG TABLET PO SCH (09:27)
[2023-06-19] MEDS: NICOTINE 14MG/24HR PATCH TRANSDERM SCH (09:28)
[2023-06-19] MEDS: ENOXAPARIN 40 MG/0.4 ML SYRINGE SQ SCH (09:29)
[2023-06-19] MEDS: LIDOCAINE 5% PATCH TOPICAL SCH (09:32)
[2023-06-19 09:38] LABS: BUN/Creat Ratio 25.57 Ratio (12.00-20.00); Blood Urea Nitrogen 58.8 mg/dL (9.0-27.0); Calcium 9.3 mg/dL (8.7-10.3); Carbon Dioxide 18.2 mmol/L (21.6-31.8); Chloride 100 mmol/L (96-109); Glucose 134 mg/dL (70-110); Potassium 5.3 mmol/L (3.5-5.5); Sodium 135 mmol/L (135-145)
[2023-06-19] MEDS: PIPERACILLIN-TAZOBACTAM 3.375 GM in SODIUM CHLORIDE 0.9% 100 ML IVPB SCH ×2 (10:51→17:10)
[2023-06-19 11:20] LABS: Glucose,Whole Blood 183 mg/dL (70-110)
[2023-06-19] MEDS: ONDANSETRON 4 MG/2 ML VIAL IVP PRN ×2 (11:37→21:56)
--- NOTE | 2023-06-19 12:23 | P.PN ---
Subjective Progress Note Date: 06/19/23 Principal diagnosis: Reason for follow-up is right heel diabetic foot infection and osteomyelitis Patient is a 53-year-old male with a past medical history significant for diabetes mellitus hyperlipidemia hypertension [place] history of diabetic foot infection with a chronic nonhealing wound to the right heel area and underlying osteomyelitis with a previous culture positive for Proteus Acinetobacter providencia and anaerobes, presented to hospital with chest pain shortness of breath and some mental status changes On today's evaluation that is 06/19/2023, the patient remains to be afebrile, the patient is breathing comfortably on room air and the patient denies any shortness of breath, the patient denies chest pain or any cough , patient denies abdominal pain, no nausea/vomiting and no diarrhea, the patient denies any worsening pain to the right heel wound area Patient did have a white count of 10.9 as of 06/18/2023, creatinine is 2.3, local culture growing MRSA Objective - Vital Signs Vital signs: Vital Signs Temp 97.4 F L 06/19/23 07:15 Pulse 88 06/19/23 11:44 Resp 17 06/19/23 07:15 BP 107/81 06/19/23 07:15 Pulse Ox 95 06/19/23 07:15 FiO2 Intake & Output 06/18/23 06/19/23 06/19/23 18:59 06:59 18:59 Other: Voiding Method Toilet Urinal # Voids 3 3 - Exam GENERAL DESCRIPTION: A middle-age male up in bed in no distress RESPIRATORY SYSTEM: Unlabored breathing , clear to auscultation anteriorly HEART: S1 S2 regular rate and rhythm , ABDOMEN: Soft , no tenderness EXTREMITIES: Right heel wound is currently dressed no drainage - Labs CBC & Chem 7: 06/18/23 07:18 06/19/23 04:45 Labs: Abnormal Lab Results - Last 24 Hours (Table) 06/18/23 06/18/23 06/19/23 Range/Units 16:36 20:16 04:45 Carbon Dioxide 18.2 L (21.6-31.8) mmol/L Anion Gap 16.80 H (4.00-12.00) mmol/L BUN 58.8 H (9.0-27.0) mg/dL Creatinine 2.3 H (0.6-1.5) mg/dL Est GFR (CKD-EPI) 33 L (>=60) BUN/Creatinine Ratio 25.57 H (12.00-20.00) Ratio Glucose 134 H (70-110) mg/dL POC Glucose (mg/dL) 127 H 122 H (70-110) mg/dL 06/19/23 06/19/23 Range/Units 05:59 11:18 Carbon Dioxide (21.6-31.8) mmol/L Anion Gap (4.00-12.00) mmol/L BUN (9.0-27.0) mg/dL Creatinine (0.6-1.5) mg/dL Est GFR (CKD-EPI) (>=60) BUN/Creatinine Ratio (12.00-20.00) Ratio Glucose (70-110) mg/dL POC Glucose (mg/dL) 135 H 183 H (70-110) mg/dL Microbiology - Last 24 Hours (Table) 06/15/23 16:55 Blood Culture - Preliminary Blood 06/15/23 17:10 Blood Culture - Preliminary Blood 06/15/23 17:11 Anaerobic Culture - Preliminary Foot - Right Laverne albicans Assessment and Plan (1) Wound of foot Current Visit: Yes Status: Acute Code(s): S91.309A - UNSPECIFIED OPEN WOUND, UNSPECIFIED FOOT, INITIAL ENCOUNTER SNOMED Code(s): 055833227 (2) Foot osteomyelitis, right Current Visit: No Status: Acute Code(s): M86.9 - OSTEOMYELITIS, UNSPECIFIED SNOMED Code(s): 4106912527887182 Plan: 1patient with the right heel diabetic foot infection with underlying osteomyelitis in this patient cultures were predominantly positive for gram- negative including Proteus Providencia Streptococcus and anaerobes while the patient has been getting IV Zosyn in the outpatient setting now presented to hospital predominantly with increasing shortness of breath and concern for mild CHF for which cardiology has been consulted overall right heel wound did not show any worsening and no foul-smelling drainage was noticed 2-patient currently being treated with Zosyn 3.375 g every 8 hours and daptomycin, patient seemed to have agree for amputation which is being arranged for the patient during this admission as per discussion with the vascular surgeon Dictation was produced using [employer] dictation software. please excuse any grammatical, word or spelling errors. Time with Patient: Less than 30
--- NOTE | 2023-06-19 15:13 | P.PN ---
Subjective Patient is seen in follow-up for acute kidney injury on chronic kidney disease. On IV Lasix. Admits to good urine output. Hemodynamically stable. Sitting up in chair. Vital signs are stable. General: No acute distress. HEENT: Head exam is unremarkable. LUNGS: No audible rhonchi or wheezes. HEART: Rate and Rhythm are regular. ABDOMEN: Nontender. EXTREMITITES: 2+ edema. Wounds noted. Objective - Vital Signs Vital signs: Vital Signs Temp 97.4 F L 06/19/23 07:15 Pulse 88 06/19/23 11:44 Resp 17 06/19/23 07:15 BP 107/81 06/19/23 07:15 Pulse Ox 95 06/19/23 07:15 FiO2 Intake & Output 06/18/23 06/19/23 06/19/23 18:59 06:59 18:59 Other: Voiding Method Toilet Urinal # Voids 3 3 - Labs CBC & Chem 7: 06/18/23 07:18 06/19/23 04:45 Labs: Abnormal Lab Results - Last 24 Hours (Table) 06/18/23 06/18/23 06/19/23 Range/Units 16:36 20:16 04:45 Carbon Dioxide 18.2 L (21.6-31.8) mmol/L Anion Gap 16.80 H (4.00-12.00) mmol/L BUN 58.8 H (9.0-27.0) mg/dL Creatinine 2.3 H (0.6-1.5) mg/dL Est GFR (CKD-EPI) 33 L (>=60) BUN/Creatinine Ratio 25.57 H (12.00-20.00) Ratio Glucose 134 H (70-110) mg/dL POC Glucose (mg/dL) 127 H 122 H (70-110) mg/dL 06/19/23 06/19/23 Range/Units 05:59 11:18 Carbon Dioxide (21.6-31.8) mmol/L Anion Gap (4.00-12.00) mmol/L BUN (9.0-27.0) mg/dL Creatinine (0.6-1.5) mg/dL Est GFR (CKD-EPI) (>=60) BUN/Creatinine Ratio (12.00-20.00) Ratio Glucose (70-110) mg/dL POC Glucose (mg/dL) 135 H 183 H (70-110) mg/dL Microbiology - Last 24 Hours (Table) 06/15/23 16:55 Blood Culture - Preliminary Blood 06/15/23 17:10 Blood Culture - Preliminary Blood 06/15/23 17:11 Anaerobic Culture - Preliminary Foot - Right Laverne albicans Assessment and Plan Plan: Assessment: 1. Acute kidney injury secondary to ATN secondary to cardiorenal syndrome. Creatinine 1.7-2.3 from last admission. No hydronephrosis noted on ultrasound on 05/16/2023. Creatinine 2.3 today. Trace protein on UA. 2. Chronic kidney disease stage IIIa secondary to diabetic kidney disease and cardiorenal syndrome. Creatinine 1.4 dated 06/03/2023 but from last admission. 3. Volume overload. 4. Acute on chronic systolic CHF with ejection fraction of less than 20% with moderate to severe mitral regurgitation, moderate tricuspid regurgitation and severe pulmonary hypertension. 5. Diabetes mellitus. 6. Metabolic acidosis secondary to acute kidney injury. Plan: Increase Lasix to 40 mg IV twice daily. Hold Farxiga due to wounds. Add oral bicarb. Low-salt diet and 1500 mL fluid restriction. Avoid nephrotoxins. Continue to monitor renal function and urine output.
--- NOTE | 2023-06-19 15:29 | P.PN ---
Subjective Progress Note Date: 06/19/23 Patient is admitted for chronic right heel wound with osteomyelitis; continues on IV zosyn for a total of 6 weeks of antibiotic therapy. He continues to have lower extremity edema and remains on IV lasix daily and being followed closely by nephrology. Patient has been offered amputation in the past and has refused. Now he is will to undergo the amputation, Dr. Kaur following. There is concern for diminished/absent femoral pulse on the right leg. Scheduled for arterial ultrasound today. Labs today reveal white count 10.9, hemoglobin 11.8, sodium 136, potassium 4.7, BUN 56, creatinine 2.01. 06/19/2023 Patient evaluated today continues with lower extremity edema. Underwent arterial ultrasound with normal ankle brachial indices. Pending vascular decision regarding amputation. Review of Systems Constitutional: Denied any fatigue denied any fever. Cardio vascular: denied any chest pain, palpitations Gastrointestinal: denied any nausea, vomiting, diarrhea Pulmonary: Denied any shortness of breath cough Neurologic denied any new focal deficits All inpatient medications were reviewed and appropriate changes in these medications as dictated in the interval history and assessment and plan. PHYSICAL EXAMINATION: GENERAL: The patient is alert and oriented x3, not in any acute distress. Well developed, well nourished. HEENT: Pupils are round and equally reacting to light. EOMI. No scleral icterus. No conjunctival pallor. Normocephalic, atraumatic. No pharyngeal erythema. No thyromegaly. CARDIOVASCULAR: S1 and S2 present. No murmurs, rubs, or gallops. PULMONARY: Chest is clear to auscultation, no wheezing or crackles. ABDOMEN: Soft, nontender, nondistended, normoactive bowel sounds. No palpable organomegaly. MUSCULOSKELETAL: No joint swelling or deformity. EXTREMITIES: No cyanosis, clubbing, or pedal edema. Dressing intact to right foot. +1 pitting edema and erythema to the right leg. NEUROLOGICAL: Gross neurological examination did not reveal any focal deficits. SKIN: No rashes. Assessment -Acute on chronic congestive heart failure nonischemic cardiomyopathy/systolic dysfunction EF less than 20% on IV lasix -Acute on chronic recurrent right lower leg cellulitis -infected right heel diabetic ulcer with prior history of debridement. Culture showing MRSA. Nonhealing. Patient now agreeable to amputation. Vascular following -Lower extremity chronic venous insufficiency -Hx of COPD -Diabetes mellitus type 2 chronically on insulin, uncontrolled with hypoglycemia -Hyperlipidemia -Chronic kidney disease stage III from diabetic nephropathy and nephrosclerosis -Acute kidney injury likely ATN from cardiorenal syndrome -moderate to severe MR/moderate TR and severe pulmonary hypertension -Hyponatremia on fluid restriction -Chronic low back pain. -Essential hypertension -Obstructive sleep apnea sometimes uses CPAP machine -Diabetic peripheral neuropathy -Anxiety -DJD -AICD -Lower extremity chronic venous insufficiency GI prophylaxis: Pepcid DVT prophylaxis: Lovenox Full Code Plan Continue IV lasix per nephrology increased to BID, creatinine increasing Continues on 1500 CC fluid restriction and renal diet Continues on IV zosyn per prior recommendations on 6 week course of IV antibiotic therapy; IV daptomycin added and ID following closely Vascular surgery following patient is now agreeable to amputation; pending decision with vascular surgery about amputation. Continue local wound care Continue oxygen support Oral sodium bicarbonate added today Patient is being followed closely by nephrology, ID, vascular, Repeat labs in AM The impression and plan of care has been dictated by Fozia Lopez, Nurse Practitioner as directed. Dr. Megan MD I have performed a history and physical examination and medical decision making of this patient, discussed the same with the dictator, and agree with the dictators assessment and plan as written, documented as a scribe. Based on total visit time, I have performed more than 50% of this visit. Objective - Vital Signs Vital signs: Vital Signs Temp 97.4 F L 06/19/23 07:15 Pulse 88 06/19/23 11:44 Resp 17 06/19/23 07:15 BP 107/81 06/19/23 07:15 Pulse Ox 95 06/19/23 07:15 FiO2 Intake & Output 06/18/23 06/19/23 06/19/23 18:59 06:59 18:59 Other: Voiding Method Toilet Urinal # Voids 3 3 - Labs CBC & Chem 7: 06/18/23 07:18 06/19/23 04:45 Labs: Abnormal Lab Results - Last 24 Hours (Table) 06/18/23 06/18/23 06/19/23 Range/Units 16:36 20:16 04:45 Carbon Dioxide 18.2 L (21.6-31.8) mmol/L Anion Gap 16.80 H (4.00-12.00) mmol/L BUN 58.8 H (9.0-27.0) mg/dL Creatinine 2.3 H (0.6-1.5) mg/dL Est GFR (CKD-EPI) 33 L (>=60) BUN/Creatinine Ratio 25.57 H (12.00-20.00) Ratio Glucose 134 H (70-110) mg/dL POC Glucose (mg/dL) 127 H 122 H (70-110) mg/dL 06/19/23 06/19/23 Range/Units 05:59 11:18 Carbon Dioxide (21.6-31.8) mmol/L Anion Gap (4.00-12.00) mmol/L BUN (9.0-27.0) mg/dL Creatinine (0.6-1.5) mg/dL Est GFR (CKD-EPI) (>=60) BUN/Creatinine Ratio (12.00-20.00) Ratio Glucose (70-110) mg/dL POC Glucose (mg/dL) 135 H 183 H (70-110) mg/dL Microbiology - Last 24 Hours (Table) 06/15/23 16:55 Blood Culture - Preliminary Blood 06/15/23 17:10 Blood Culture - Preliminary Blood 06/15/23 17:11 Anaerobic Culture - Preliminary Foot - Right Laverne albicans Assessment and Plan Time with Patient: Less than 30
--- NOTE | 2023-06-19 15:59 | P.GSCN ---
History of Present Illness Consult date: 06/19/23 History of present illness: Patient is a 53-year-old male who has a known right heel wound and has been seen although times that wound care. He has had interventions on this foot. There is reports of poor follow-up for his wound care treatment and due to this he has had continuation of nonhealing of his wounds despite what appears to be relatively normal-appearing waveforms on recent Doppler. He was again admitted for this wound and we have been asked to see him regarding potential amputation. Past Medical History Past Medical History: Asthma, Coronary Artery Disease (CAD), Chest Pain / Angina, Heart Failure, COPD, Diabetes Mellitus, GERD/Reflux, Hyperlipidemia, Hypertension, Myocardial Infarction ([place]), Pneumonia, Sleep Apnea/CPAP/BIPAP, Supraventricular Tachycardia (SVT) Additional Past Medical History / Comment(s): Ischemic cardiomyopathy, chronic CHF, SVT, IDDM type II, KAMINI with CPAP occasionally used, chronic cervical/back pain, DJD, diabetic foot wounds x 4 months. Last Myocardial Infarction Date:: 12/11/17 History of Any Multi-Drug Resistant Organisms: MRSA Year Discovered:: 06/15/23 MDRO Source:: Right Foot Past Surgical History: Adenoidectomy, AICD, Back Surgery, Cholecystectomy, EPS, Heart Catheterization, Pacemaker, Tonsillectomy Additional Past Surgical History / Comment(s): 12/10/17 cardiac cath, previous cardiac cath, 09/02/14 AICD/pacer, EGD/colonoscopy, low back surgery with fusion. Past Anesthesia/Blood Transfusion Reactions: Motion Sickness Additional Past Anesthesia/Blood Transfusion Reaction / Comm: Pt states he received blood with back surgery without reaction. Type of Cardiac Device: Permanent Pacemaker, AICD Device Placement Date:: 09-02-14 Past Psychological History: ADD/ADHD, Anxiety Additional Psychological History / Comment(s): Pt lives with his old son. There are cats in the home. Pt is very independent. He states he would like a walker d/t his L foot wound. He drives. Pt states he has ADHD. Pt is disabled. He has a glucometer and nebulizer. The patient worked in the past [employer] and [employer]. Smoking Status: Current every day smoker Past Alcohol Use History: Occasional Additional Past Alcohol Use History / Comment(s): patient states that he quit smoking 3 weeks ago Past Drug Use History: Marijuana Additional Drug Use History / Comment(s): Occasional marijuana use. - Past Family History Father Additional Family Medical History / Comment(s): Pt has not kept in close contact with his father for many yrs. Father was an alcoholic and pt believes he has from cirrhosis of the liver. Mother History Unknown: Yes Additional Family Medical History / Comment(s): Pt is not in contact with his mother or his father who he has heard had . Medications and Allergies Home Medications Medication Instructions Recorded Confirmed Type Albuterol Inhaler [Ventolin Hfa 2 puff INHALATION RT-QID PRN 07/06/22 06/15/23 H istory Inhaler] INSULIN LISPRO (humaLOG) [humaLOG] 5 - 10 unit SQ ACHS PRN 07/06/22 06/15/23 History Morphine Sulfate Ir [MSIR] 30 mg PO QID 07/06/22 06/15/23 History DULoxetine HCL [Cymbalta] 60 mg PO BID 11/18/22 06/15/23 History Cyclobenzaprine [Flexeril] 10 mg PO QID 05/14/23 06/15/23 History Zolpidem [Ambien] 10 mg PO HS PRN 05/14/23 06/15/23 History Piperacillin-Tazobactam [Zosyn] 3.375 gm IVPB Q8HR #120 each 05/22/23 06/15/23 Rx Aspirin 81 mg PO DAILY tab 05/29/23 06/15/23 Rx Atorvastatin [Lipitor] 40 mg PO DAILY #30 tab 05/29/23 06/15/23 Rx Bumetanide [BUMEX] 2 mg PO BID #120 tab 05/29/23 06/15/23 Rx Midodrine [ProAmatine] 5 mg PO AC-TID #100 tab 05/29/23 06/15/23 Rx Nicotine 14Mg/24Hr Patch [Habitrol] 1 patch TRANSDERM DAILY #14 patch 05/29/23 06/15/23 Rx Potassium Chloride ER [K-Dur 20] 20 meq PO DAILY #30 tab 05/29/23 06/15/23 Rx SILVER sulfADIAZINE CREAM 1 applic TOPICAL BID 06/04/23 06/15/23 History [Silvadene Cream] Dapagliflozin Propanediol [Farxiga] 10 mg PO DAILY #30 tab 06/10/23 06/15/23 Rx Insulin Glargine,Hum.rec.anlog 28 units SQ DAILY #0 06/10/23 06/15/23 Rx [Toujeo Solostar] Metoprolol Succinate (ER) [Toprol 25 mg PO DAILY #30 tab 06/10/23 06/15/23 Rx XL] Spironolactone [Aldactone] 25 mg PO DAILY #60 tab 06/10/23 06/15/23 Rx Allergies Allergy/AdvReac Type Severity Reaction Status Date / Time azithromycin Allergy Anaphylaxis Verified 06/15/23 19:17 gemfibrozil [From Lopid] Allergy Rash/Hives Verified 06/15/23 19:17 Surgical - Exam Vital Signs Temp Pulse Resp Pulse Ox 97.0 F L 68 24 97 06/15/23 14:42 06/15/23 14:42 06/15/23 14:42 06/15/23 14:42 Gen. is a disheveled male appearing older than stated age, seemingly mildly confused. Poor dentition Heart appears regular Lungs are clear Abdomen soft Bilateral lower extremities are mildly edematous. There is a large heel wound on the right with exposed necrotic appearing fat and palpation of the calcaneus. No purulent drainage. He maintains palpable pedal pulses. On the left there is a wound the anterior christine with fibrinous appearing tissue. Results Lower extremity arterial Dopplers reviewed. Normal in appearance with relatively normal-appearing waveforms. - Labs 06/18/23 07:18 06/19/23 04:45 Abnormal Lab Results - Last 24 Hours (Table) 06/18/23 06/18/23 06/19/23 Range/Units 16:36 20:16 04:45 Carbon Dioxide 18.2 L (21.6-31.8) mmol/L Anion Gap 16.80 H (4.00-12.00) mmol/L BUN 58.8 H (9.0-27.0) mg/dL Creatinine 2.3 H (0.6-1.5) mg/dL Est GFR (CKD-EPI) 33 L (>=60) BUN/Creatinine Ratio 25.57 H (12.00-20.00) Ratio Glucose 134 H (70-110) mg/dL POC Glucose (mg/dL) 127 H 122 H (70-110) mg/dL 06/19/23 06/19/23 Range/Units 05:59 11:18 Carbon Dioxide (21.6-31.8) mmol/L Anion Gap (4.00-12.00) mmol/L BUN (9.0-27.0) mg/dL Creatinine (0.6-1.5) mg/dL Est GFR (CKD-EPI) (>=60) BUN/Creatinine Ratio (12.00-20.00) Ratio Glucose (70-110) mg/dL POC Glucose (mg/dL) 135 H 183 H (70-110) mg/dL Microbiology - Last 24 Hours (Table) 06/15/23 16:55 Blood Culture - Preliminary Blood 06/15/23 17:10 Blood Culture - Preliminary Blood 06/15/23 17:11 Anaerobic Culture - Preliminary Foot - Right Laverne albicans Diabetes panel 06/19/23 Range/Units 04:45 Sodium 135 (135-145) mmol/L Potassium 5.3 (3.5-5.5) mmol/L Chloride 100 (96-109) mmol/L Carbon Dioxide 18.2 L (21.6-31.8) mmol/L BUN 58.8 H (9.0-27.0) mg/dL Creatinine 2.3 H (0.6-1.5) mg/dL Glucose 134 H (70-110) mg/dL Calcium 9.3 (8.7-10.3) mg/dL Calcium panel 06/19/23 Range/Units 04:45 Calcium 9.3 (8.7-10.3) mg/dL Pituitary panel 06/19/23 Range/Units 04:45 Sodium 135 (135-145) mmol/L Potassium 5.3 (3.5-5.5) mmol/L Chloride 100 (96-109) mmol/L Carbon Dioxide 18.2 L (21.6-31.8) mmol/L BUN 58.8 H (9.0-27.0) mg/dL Creatinine 2.3 H (0.6-1.5) mg/dL Glucose 134 H (70-110) mg/dL Calcium 9.3 (8.7-10.3) mg/dL Adrenal panel 06/19/23 Range/Units 04:45 Sodium 135 (135-145) mmol/L Potassium 5.3 (3.5-5.5) mmol/L Chloride 100 (96-109) mmol/L Carbon Dioxide 18.2 L (21.6-31.8) mmol/L BUN 58.8 H (9.0-27.0) mg/dL Creatinine 2.3 H (0.6-1.5) mg/dL Glucose 134 H (70-110) mg/dL Calcium 9.3 (8.7-10.3) mg/dL Assessment and Plan Assessment: Right lower extremity wound infection, likely osteomyelitis Nonhealing right lower extremity wound Diabetes Congestive heart failure COPD Plan: Long discussion had with the patient regarding his foot wound and previous potential discussions of amputation per wound care. At this time the patient is refusing discussion or amputation by myself and stating he wants the physician to do a 2 he has talked about with this rather than us. I discussed with the patient that that is the physician called us in order to aid in his treatment. Seems of this wound has been going on for significant amount of time, patient does have adequate arterial inflow and likely should have healed with adequate wound care and appropriate medical compliance with offloading. This point he states he is ready for the amputation but again the surgeon discussion with him to do it. This is all related to Dr. Kaur who is going to speak with the patient as well.
[2023-06-19 16:58] LABS: Glucose,Whole Blood 173 mg/dL (70-110)
[2023-06-19 20:52] LABS: Glucose,Whole Blood 115 mg/dL (70-110)
[2023-06-19] MEDS: SODIUM BICARBONATE TAB 650 MG TAB PO SCH (21:42)
[2023-06-20] MEDS: PIPERACILLIN-TAZOBACTAM 3.375 GM in SODIUM CHLORIDE 0.9% 100 ML IVPB SCH ×3 (00:31→15:46)
[2023-06-20 06:05] LABS: Glucose,Whole Blood 106 mg/dL (70-110)
[2023-06-20] MEDS: INSULIN ASPART (NovoLOG) 100 UNIT/ML VIAL SQ SCH ×4 (06:45→20:25)
[2023-06-20] MEDS: INSULIN DETEMIR (LEVEMIR) 100 UNIT/ML SYR SQ SCH (07:12)
[2023-06-20] MEDS: MIDODRINE 5 MG TAB PO SCH ×3 (07:15→17:49)
[2023-06-20 07:36] LABS: African American GFR (CKD) 25 (>60 ml/min/1.73 sqM); Anion Gap 17 mmol/L; Blood Urea Nitrogen 70 mg/dL (9-20); Calcium 9.4 mg/dL (8.4-10.2); Carbon Dioxide 19 mmol/L (22-30); Chloride 99 mmol/L (98-107); Glucose 84 mg/dL (74-99); Magnesium 2.5 mg/dL (1.6-2.3); Non-African American GFR(CKD) 22 (>60 ml/min/1.73 sqM); Sodium 135 mmol/L (137-145)
[2023-06-20] MEDS: NICOTINE 14MG/24HR PATCH TRANSDERM SCH (07:57)
[2023-06-20] MEDS: SODIUM BICARBONATE TAB 650 MG TAB PO SCH ×3 (07:57→21:46)
[2023-06-20] MEDS: SPIRONOLACTONE 25 MG TAB PO SCH ×2 (07:57→09:58)
[2023-06-20] MEDS: METOPROLOL SUCCINATE (ER) 25 MG TAB.ER.24H PO SCH ×2 (07:57→09:58)
[2023-06-20] MEDS: FUROSEMIDE 10 MG/ML 4 ML VIAL IV SCH (07:57)
[2023-06-20] MEDS: DULoxetine HCL 60 MG CAPSULE.DR PO SCH ×3 (07:57→21:46)
[2023-06-20] MEDS: FAMOTIDINE 20 MG TAB PO SCH ×2 (07:57→09:57)
[2023-06-20] MEDS: ASPIRIN 81 MG PO SCH ×2 (07:57→09:57)
[2023-06-20] MEDS: LIDOCAINE 5% PATCH TOPICAL SCH (07:58)
[2023-06-20] MEDS: ONDANSETRON 4 MG/2 ML VIAL IVP PRN (08:00)
[2023-06-20 08:08] LABS: Potassium 6.1 mmol/L (3.5-5.1)
[2023-06-20] MEDS ORDERED: SODIUM ZIRCONIUM CYCLOSILICATE 10 GM PACKET PO ONE (08:17)
[2023-06-20] MEDS: IPRATROPIUM-ALBUTEROL 3 ML NEB INHALATION SCH ×4 (08:59→20:23)
[2023-06-20] MEDS: CYCLOBENZAPRINE 10 MG TAB PO SCH (09:57)
[2023-06-20] MEDS: MORPHINE SULFATE IR 15 MG TABLET PO SCH (09:58)
[2023-06-20 11:11] LABS: HGB 12.3 g/dL (13.0-17.0); MCH 27.5 pg (27.0-32.0); MCHC 30.8 g/dL (32.0-37.0); MCV 89.5 FL (80.0-97.0); NRBC Per 100 WBC 0 X 10*3/uL (0.00-0.01); Platelet Count 246 X 10*3/uL (140-440); RBC 4.47 X 10*6/uL (4.40-5.60); RDW 17.4 % (11.5-14.5); WBC 15.32 X 10*3/uL (4.50-10.00)
[2023-06-20 11:22] LABS: Glucose,Whole Blood 108 mg/dL (70-110)
[2023-06-20 11:47] LABS: Basophils # (A) 0.25 X 10*3/uL (0.00-0.10); Basophils % (A) 1.6 %; Eosinophils # (A) 0.08 X 10*3/uL (0.04-0.35); Eosinophils % (A) 0.5 %; Lymphocytes # (A) 1.69 X 10*3/uL (0.90-5.00); Monocytes # (A) 2.03 X 10*3/uL (0.20-1.00); Monocytes % (A) 13.3 %; Neutrophils # (A) 11.19 X 10*3/uL (1.80-7.70); Neutrophils % (A) 73.1 %; RBC Morphology Normal (Normal)
--- NOTE | 2023-06-20 11:51 | CT ---
EXAMINATION TYPE: CT brain wo con DATE OF EXAM: 06/20/2023 COMPARISON: 06/15/2023 HISTORY: FALL CT DLP: [address] of the brain was performed. The ventricles, basal cisterns and sulci overlying the cerebral convexities demonstrate mild enlargem ent. Small remote insult left frontal lobe. There is no evidence for intracranial hemorrhage or sulcal effacement. There is decreased attenuation about the periventricular white matter and deep white matter of both c erebral hemispheres, compatible with chronic small vessel ischemia. Differential diagnosis does inclu de demyelination. No mass effects are seen.No midline shift. Osseous calvarium is intact. If symptoms persist consider MRI. IMPRESSION: 1. Age related atrophic and chronic small vessel ischemic change without acute intracranial process s een at this time.
--- NOTE | 2023-06-20 13:38 | P.PN ---
Subjective Progress Note Date: 06/20/23 Follow-up for acute kidney injury. Urine output documented to 50 ML's in the last 24 hours. Denies any nausea vomiting diarrhea. Objective - Vital Signs Vital signs: Vital Signs Temp 97.8 F 06/20/23 07:40 Pulse 92 06/20/23 12:18 Resp 16 06/20/23 07:40 BP 113/63 06/20/23 07:40 Pulse Ox 95 06/20/23 08:59 FiO2 Intake & Output 06/19/23 06/20/23 06/20/23 18:59 06:59 18:59 Output Total 250 Balance -250 Output: Urine 250 Other: Voiding Method Toilet Toilet Urinal Urinal # Voids 2 3 - Exam No acute distress S1-S2 heard Decreased breath sounds Abdomen soft Edema - Labs CBC & Chem 7: 06/20/23 06:50 06/20/23 06:50 Labs: Abnormal Lab Results - Last 24 Hours (Table) 06/19/23 06/19/23 06/20/23 Range/Units 16:56 20:50 06:50 WBC (4.50-10.00) X 10*3/uL Hgb (13.0-17.0) g/dL MCHC (32.0-37.0) g/dL RDW (11.5-14.5) % Neutrophils # (1.80-7.70) X 10*3/uL Monocytes # (0.20-1.00) X 10*3/uL Basophils # (0.00-0.10) X 10*3/uL Sodium 135 L (137-145) mmol/L Potassium 6.1 H* (3.5-5.1) mmol/L Carbon Dioxide 19 L (22-30) mmol/L BUN 70 H (9-20) mg/dL Creatinine 3.06 H (0.66-1.25) mg/dL POC Glucose (mg/dL) 173 H 115 H (70-110) mg/dL Magnesium 2.5 H (1.6-2.3) mg/dL 06/20/23 Range/Units 06:50 WBC 15.32 H (4.50-10.00) X 10*3/uL Hgb 12.3 L (13.0-17.0) g/dL MCHC 30.8 L (32.0-37.0) g/dL RDW 17.4 H (11.5-14.5) % Neutrophils # 11.19 H (1.80-7.70) X 10*3/uL Monocytes # 2.03 H (0.20-1.00) X 10*3/uL Basophils # 0.25 H (0.00-0.10) X 10*3/uL Sodium (137-145) mmol/L Potassium (3.5-5.1) mmol/L Carbon Dioxide (22-30) mmol/L BUN (9-20) mg/dL Creatinine (0.66-1.25) mg/dL POC Glucose (mg/dL) (70-110) mg/dL Magnesium (1.6-2.3) mg/dL Microbiology - Last 24 Hours (Table) 06/15/23 17:11 Anaerobic Culture - Final Foot - Right Laverne albicans Assessment and Plan Assessment: #1 acute kidney injury secondary to ATN/CRS. -Baseline creatinine 1.4 MG per DL. -Urine analysis trace protein, 4+ glucose. #2 chronic kidney disease stage III secondary to diabetic kidney disease. #3 CHF with systolic dysfunction EF of 20% #4 hyperkalemia multifactorial. -Aldactone /rule out urinary retention #5 metabolic acidosis. - Plan: #1 discontinue Aldactone. #2 lokelma for hyperkalemia. #3 bladder scan to rule out urinary retention. #4 continue with Lasix, increase to 60 mg IV 3 times a day. #5 check renal ultrasound. #6 repeat BMP now and in the morning
[2023-06-20 15:30] LABS: African American GFR (CKD) 19 (>60 ml/min/1.73 sqM); Anion Gap 22 mmol/L; Blood Urea Nitrogen 72 mg/dL (9-20); Calcium 9.6 mg/dL (8.4-10.2); Carbon Dioxide 16 mmol/L (22-30); Chloride 98 mmol/L (98-107); Glucose 102 mg/dL (74-99); Non-African American GFR(CKD) 16 (>60 ml/min/1.73 sqM); Sodium 136 mmol/L (137-145)
[2023-06-20] MEDS: FUROSEMIDE 10 MG/ML 10 ML VIAL IV SCH ×2 (15:46→21:45)
[2023-06-20] MEDS: SODIUM ZIRCONIUM CYCLOSILICATE 10 GM PACKET PO SCH ×2 (16:11→21:45)
[2023-06-20] MEDS: HEPARIN SODIUM,PORCINE 5,000 UNIT/ML 1 ML VIAL SQ SCH (16:15)
[2023-06-20 16:23] LABS: Potassium 6.4 mmol/L (3.5-5.1)
[2023-06-20 16:42] LABS: Glucose,Whole Blood 114 mg/dL (70-110)
[2023-06-20] MEDS ORDERED: INSULIN REGULAR 100 UNIT/ML VIAL (IV) IV ONE (16:54)
[2023-06-20] MEDS ORDERED: DEXTROSE 50% SYRINGE 50 ML IVP STA (16:55)
--- NOTE | 2023-06-20 17:49 | P.PN ---
Subjective Progress Note Date: 06/20/23 Patient is admitted for chronic right heel wound with osteomyelitis; continues on IV zosyn for a total of 6 weeks of antibiotic therapy. He continues to have lower extremity edema and remains on IV lasix daily and being followed closely by nephrology. Patient has been offered amputation in the past and has refused. Now he is will to undergo the amputation, Dr. Kaur following. There is concern for diminished/absent femoral pulse on the right leg. Scheduled for arterial ultrasound today. Labs today reveal white count 10.9, hemoglobin 11.8, sodium 136, potassium 4.7, BUN 56, creatinine 2.01. 06/19/2023 Patient evaluated today continues with lower extremity edema. Underwent arterial ultrasound with normal ankle brachial indices. Pending vascular decision regarding amputation. 06/20/2023 Patient evaluated today. Lasix has been increased to BID due to the lower extremity edema. Creatinine is now up to 3.06 and potassium 6.1 today. Continues on IV zosyn and IV daptyomcyin. Patient had a fall today while getting up from the chair and has had increased confusion. He did fall and hit his head with a laceration on eyebrow. Review of Systems Constitutional: Denied any fatigue denied any fever. Cardio vascular: denied any chest pain, palpitations Gastrointestinal: denied any nausea, vomiting, diarrhea Pulmonary: Denied any shortness of breath cough Neurologic denied any new focal deficits All inpatient medications were reviewed and appropriate changes in these medications as dictated in the interval history and assessment and plan. PHYSICAL EXAMINATION: GENERAL: The patient is alert and oriented x3, not in any acute distress. Well developed, well nourished. HEENT: Pupils are round and equally reacting to light. EOMI. No scleral icterus. No conjunctival pallor. Normocephalic, atraumatic. No pharyngeal erythema. No thyromegaly. CARDIOVASCULAR: S1 and S2 present. No murmurs, rubs, or gallops. PULMONARY: Chest is clear to auscultation, no wheezing or crackles. ABDOMEN: Soft, nontender, nondistended, normoactive bowel sounds. No palpable organomegaly. MUSCULOSKELETAL: No joint swelling or deformity. EXTREMITIES: No cyanosis, clubbing, or pedal edema. Dressing intact to right foot. +1 pitting edema and erythema to the right leg. NEUROLOGICAL: Gross neurological examination did not reveal any focal deficits. SKIN: No rashes. Assessment -Acute on chronic congestive heart failure nonischemic cardiomyopathy/systolic dysfunction EF less than 20% on IV lasix -Acute on chronic recurrent right lower leg cellulitis -infected right heel diabetic ulcer with prior history of debridement. Culture showing MRSA. Nonhealing. Patient now agreeable to amputation. Vascular following -Lower extremity chronic venous insufficiency -Hx of COPD -Diabetes mellitus type 2 chronically on insulin, uncontrolled with hypoglycemia -Hyperlipidemia -Chronic kidney disease stage III from diabetic nephropathy and nephrosclerosis -Acute kidney injury likely ATN from cardiorenal syndrome, worsening renal function -Altered mental status due to acute metabolic encephalopathy from ANGY -Hyperkalemia from the ANGY -moderate to severe MR/moderate TR and severe pulmonary hypertension -Hyponatremia on fluid restriction -Chronic low back pain. -Essential hypertension -Obstructive sleep apnea sometimes uses CPAP machine -Diabetic peripheral neuropathy -Anxiety -DJD -AICD -Lower extremity chronic venous insufficiency GI prophylaxis: Pepcid DVT prophylaxis: Lovenox Full Code Plan Continue IV lasix per nephrology increased to BID, creatinine increasing Continues on 1500 CC fluid restriction and renal diet 10 mg of lokelma given today Continues on IV zosyn per prior recommendations on 6 week course of IV antibiotic therapy; IV daptomycin added and ID following closely Vascular surgery following patient is now agreeable to amputation; pending decision with vascular surgery about amputation. Continue local wound care Continue oxygen support Oral sodium bicarbonate added today Patient is being followed closely by nephrology, ID, vascular, Repeat labs in AM The impression and plan of care has been dictated by Fozia Lopez, Nurse Practitioner as directed. Dr. Nick MD I have performed a history and physical examination and medical decision making of this patient, discussed the same with the dictator, and agree with the dictators assessment and plan as written, documented as a scribe. Based on total visit time, I have performed more than 100% of this visit. Objective - Vital Signs Vital signs: Vital Signs Temp 97.8 F 06/20/23 07:40 Pulse 58 L 06/20/23 07:40 Resp 16 06/20/23 07:40 BP 113/63 06/20/23 07:40 Pulse Ox 95 06/20/23 08:59 FiO2 Intake & Output 06/19/23 06/20/23 06/20/23 18:59 06:59 18:59 Other: Voiding Method Toilet Toilet Urinal Urinal # Voids 2 3 - Labs CBC & Chem 7: 06/20/23 06:50 06/20/23 14:16 Labs: Abnormal Lab Results - Last 24 Hours (Table) 06/19/23 06/19/23 06/19/23 Range/Units 11: 16:56 20:50 Sodium (137-145) mmol/L Potassium (3.5-5.1) mmol/L Carbon Dioxide (22-30) mmol/L BUN (9-20) mg/dL Creatinine (0.66-1.25) mg/dL POC Glucose (mg/dL) 183 H 173 H 115 H (70-110) mg/dL Magnesium (1.6-2.3) mg/dL 06/20/23 Range/Units 06:50 Sodium 135 L (137-145) mmol/L Potassium 6.1 H* (3.5-5.1) mmol/L Carbon Dioxide 19 L (22-30) mmol/L BUN 70 H (9-20) mg/dL Creatinine 3.06 H (0.66-1.25) mg/dL POC Glucose (mg/dL) (70-110) mg/dL Magnesium 2.5 H (1.6-2.3) mg/dL Microbiology - Last 24 Hours (Table) 06/15/23 17:11 Anaerobic Culture - Final Foot - Right Laverne albicans Assessment and Plan Time with Patient: Less than 30
[2023-06-20 20:23] LABS: Glucose,Whole Blood 147 mg/dL (70-110)
[2023-06-21] MEDS: HEPARIN SODIUM,PORCINE 5,000 UNIT/ML 1 ML VIAL SQ SCH ×4 (00:16→23:50)
[2023-06-21] MEDS: PIPERACILLIN-TAZOBACTAM 3.375 GM in SODIUM CHLORIDE 0.9% 100 ML IVPB SCH ×4 (00:16→23:50)
[2023-06-21 06:08] LABS: Glucose,Whole Blood 138 mg/dL (70-110)
[2023-06-21] MEDS: INSULIN ASPART (NovoLOG) 100 UNIT/ML VIAL SQ SCH ×4 (06:20→20:36)
[2023-06-21] MEDS: MIDODRINE 5 MG TAB PO SCH ×4 (06:24→17:32)
[2023-06-21] MEDS: IPRATROPIUM-ALBUTEROL 3 ML NEB INHALATION SCH ×4 (07:47→20:09)
[2023-06-21] MEDS: LIDOCAINE 5% PATCH TOPICAL SCH (09:13)
[2023-06-21] MEDS: NICOTINE 14MG/24HR PATCH TRANSDERM SCH (09:13)
[2023-06-21] MEDS: FAMOTIDINE 20 MG TAB PO SCH (09:16)
[2023-06-21] MEDS: INSULIN DETEMIR (LEVEMIR) 100 UNIT/ML SYR SQ SCH (09:16)
[2023-06-21] MEDS: SODIUM BICARBONATE TAB 650 MG TAB PO SCH ×2 (09:17→20:36)
[2023-06-21] MEDS: METOPROLOL SUCCINATE (ER) 25 MG TAB.ER.24H PO SCH (09:19)
[2023-06-21] MEDS: DULoxetine HCL 60 MG CAPSULE.DR PO SCH ×2 (09:19→20:36)
[2023-06-21 11:02] VITALS: BMI 29.2
[2023-06-21 11:09] LABS: Glucose,Whole Blood 153 mg/dL (70-110)
[2023-06-21 12:20] LABS: BUN/Creat Ratio 19.73 Ratio (12.00-20.00); Blood Urea Nitrogen 86.8 mg/dL (9.0-27.0); Calcium 9.4 mg/dL (8.7-10.3); Carbon Dioxide 12.3 mmol/L (21.6-31.8); Chloride 97 mmol/L (96-109); Glucose 143 mg/dL (70-110); Sodium 136 mmol/L (135-145)
[2023-06-21] MEDS: SODIUM ZIRCONIUM CYCLOSILICATE 10 GM PACKET PO SCH ×3 (13:01→16:29)
[2023-06-21] MEDS: ASPIRIN 81 MG PO SCH (13:03)
--- NOTE | 2023-06-21 13:04 | P.PN ---
Subjective Progress Note Date: 06/21/23 patient seen and examined. Per nursing patient has become more confused and is unable to consent for surgery which was scheduled today. The surgery was cancelled and the primary surgeon called for continued planning. Objective - Vital Signs Vital signs: Vital Signs Temp 97.9 F 06/21/23 06:52 Pulse 76 06/21/23 11:45 Resp 21 06/21/23 06:52 BP 116/75 06/21/23 09:18 Pulse Ox 98 06/21/23 07:49 FiO2 Intake & Output 06/20/23 06/21/23 06/21/23 18:59 06:59 18:59 Intake Total 240 Output Total 250 Balance -10 Weight 95.254 kg Intake: Oral 240 Output: Urine 250 Other: # Voids 2 0 - Exam Gen. is a disheveled male appearing older than stated age, mildly confused. Poor dentition Heart appears regular Lungs are clear Abdomen soft Bilateral lower extremities are mildly edematous. There is a large heel wound on the right with exposed necrotic appearing fat and palpation of the calcaneus. No purulent drainage. He maintains palpable pedal pulses. On the left there is a wound the anterior christine with fibrinous appearing tissue. - Labs CBC & Chem 7: 06/20/23 06:50 06/21/23 06:19 Labs: Abnormal Lab Results - Last 24 Hours (Table) 06/20/23 06/20/23 06/20/23 Range/Units 14:16 16:40 18:05 Sodium 136 L (137-145) mmol/L Potassium 6.4 H* 5.6 H (3.5-5.1) mmol/L Carbon Dioxide 16 L (22-30) mmol/L Anion Gap (4.00-12.00) mmol/L BUN 72 H (9-20) mg/dL Creatinine 3.91 H (0.66-1.25) mg/dL Est GFR (CKD-EPI) (>=60) Glucose 102 H (74-99) mg/dL POC Glucose (mg/dL) 114 H (70-110) mg/dL 06/20/23 06/21/23 06/21/23 Range/Units 20:22 06:06 06:19 Sodium (137-145) mmol/L Potassium 6.0 H (3.5-5.1) mmol/L Carbon Dioxide 12.3 L (22-30) mmol/L Anion Gap 26.70 H (4.00-12.00) mmol/L BUN 86.8 H (9-20) mg/dL Creatinine 4.4 H (0.66-1.25) mg/dL Est GFR (CKD-EPI) 15 L (>=60) Glucose 143 H (74-99) mg/dL POC Glucose (mg/dL) 147 H 138 H (70-110) mg/dL 06/21/23 Range/Units 11:07 Sodium (137-145) mmol/L Potassium (3.5-5.1) mmol/L Carbon Dioxide (22-30) mmol/L Anion Gap (4.00-12.00) mmol/L BUN (9-20) mg/dL Creatinine (0.66-1.25) mg/dL Est GFR (CKD-EPI) (>=60) Glucose (74-99) mg/dL POC Glucose (mg/dL) 153 H (70-110) mg/dL Microbiology - Last 24 Hours (Table) 06/15/23 16:55 Blood Culture - Final Blood 06/15/23 17:10 Blood Culture - Final Blood Assessment and Plan Assessment: Right lower extremity wound infection, likely osteomyelitis Nonhealing right lower extremity wound Diabetes Congestive heart failure COPD Plan: Long discussion had with ID and Dr. Kaur about patients mentation and ability to consent for surgery. They will work on power of banking attorney and when he can be consented for surgery we will perform the below knee amputation at that time.
[2023-06-21] MEDS: FUROSEMIDE 10 MG/ML 10 ML VIAL IV SCH (13:10)
[2023-06-21] MEDS ORDERED: SODIUM CHLORIDE 0.9% 1,000 ML IV ONE (13:29)
[2023-06-21] MEDS ORDERED: DEXTROSE 5%-0.45% NACL 1,000 ML IV SCH (13:30)
--- NOTE | 2023-06-21 13:34 | P.PN ---
Subjective Progress Note Date: 06/21/23 Follow-up for acute kidney injury. Urine output not documented. As per him no urine output. Denies any nausea vomiting diarrhea. No chest pain or shortness of breath. Objective - Vital Signs Vital signs: Vital Signs Temp 97.9 F 06/21/23 06:52 Pulse 76 06/21/23 11:45 Resp 21 06/21/23 06:52 BP 116/75 06/21/23 09:18 Pulse Ox 98 06/21/23 07:49 FiO2 Intake & Output 06/20/23 06/21/23 06/21/23 18:59 06:59 18:59 Intake Total 240 Output Total 250 Balance -10 Weight 95.254 kg Intake: Oral 240 Output: Urine 250 Other: # Voids 2 0 - Exam No acute distress S1-S2 heard Decreased breath sounds Abdomen soft Edema - Labs CBC & Chem 7: 06/20/23 06:50 06/21/23 06:19 Labs: Abnormal Lab Results - Last 24 Hours (Table) 06/20/23 06/20/23 06/20/23 Range/Units 14:16 16:40 18:05 Sodium 136 L (137-145) mmol/L Potassium 6.4 H* 5.6 H (3.5-5.1) mmol/L Carbon Dioxide 16 L (22-30) mmol/L Anion Gap (4.00-12.00) mmol/L BUN 72 H (9-20) mg/dL Creatinine 3.91 H (0.66-1.25) mg/dL Est GFR (CKD-EPI) (>=60) Glucose 102 H (74-99) mg/dL POC Glucose (mg/dL) 114 H (70-110) mg/dL 06/20/23 06/21/23 06/21/23 Range/Units 20:22 06:06 06:19 Sodium (137-145) mmol/L Potassium 6.0 H (3.5-5.1) mmol/L Carbon Dioxide 12.3 L (22-30) mmol/L Anion Gap 26.70 H (4.00-12.00) mmol/L BUN 86.8 H (9-20) mg/dL Creatinine 4.4 H (0.66-1.25) mg/dL Est GFR (CKD-EPI) 15 L (>=60) Glucose 143 H (74-99) mg/dL POC Glucose (mg/dL) 147 H 138 H (70-110) mg/dL 06/21/23 Range/Units 11:07 Sodium (137-145) mmol/L Potassium (3.5-5.1) mmol/L Carbon Dioxide (22-30) mmol/L Anion Gap (4.00-12.00) mmol/L BUN (9-20) mg/dL Creatinine (0.66-1.25) mg/dL Est GFR (CKD-EPI) (>=60) Glucose (74-99) mg/dL POC Glucose (mg/dL) 153 H (70-110) mg/dL Microbiology - Last 24 Hours (Table) 06/15/23 16:55 Blood Culture - Final Blood 06/15/23 17:10 Blood Culture - Final Blood Assessment and Plan Assessment: #1 acute kidney injury secondary to ATN/CRS. -Baseline creatinine 1.4 MG per DL. -Urine analysis trace protein, 4+ glucose. #2 chronic kidney disease stage III secondary to diabetic kidney disease. #3 CHF with systolic dysfunction EF of 20% #4 hyperkalemia multifactorial. -Aldactone /bladder scan of 350 ML's. #5 metabolic acidosis. - Plan: #1 Aldactone discontinued yesterday. #2 lokelma for hyperkalemia. #3 Munoz catheter for urinary retention with a bladder scan of 350 ML's. #4 stop Lasix. IV fluid bolus, followed by normal saline at 75 ML's an hour. #5 renal ultrasound pending. #6 discussed at length regarding the need for renal replacement therapy with worsening kidney function and hyperkalemia. Patient refused for dialysis at this time. Continue with medical management for now. #7 prognosis guarded. Plan of care discussed with the primary team and RN.
--- NOTE | 2023-06-21 14:11 | PN ---
PROGRESS NOTE This gentleman has a history of chronic wound to the foot. He has been treating in the past and amputation. The patient is refusing in the beginning. Now, he just wants to proceed for the surgery. The patient's potassium is 6 today. BUN and creatinine are high today. I have requested Dr. Hand to see this patient for amputation. The patient will be seen by Nephrology for further care. The patient will be reevaluated by Dr. Hand on Saturday. MMODL / IJN: [id number] /
--- NOTE | 2023-06-21 14:36 | P.PN ---
Subjective Progress Note Date: 06/21/23 Patient is admitted for chronic right heel wound with osteomyelitis; continues on IV zosyn for a total of 6 weeks of antibiotic therapy. He continues to have lower extremity edema and remains on IV lasix daily and being followed closely by nephrology. Patient has been offered amputation in the past and has refused. Now he is will to undergo the amputation, Dr. Kaur following. There is concern for diminished/absent femoral pulse on the right leg. Scheduled for arterial ultrasound today. Labs today reveal white count 10.9, hemoglobin 11.8, sodium 136, potassium 4.7, BUN 56, creatinine 2.01. 06/19/2023 Patient evaluated today continues with lower extremity edema. Underwent arterial ultrasound with normal ankle brachial indices. Pending vascular decision regarding amputation. 06/20/2023 Patient evaluated today. Lasix has been increased to BID due to the lower extremity edema. Creatinine is now up to 3.06 and potassium 6.1 today. Continues on IV zosyn and IV daptyomcyin. Patient had a fall today while getting up from the chair and has had increased confusion. He did fall and hit his head with a laceration on eyebrow. 06/21. Patient seen and examined. Patient is very compliant with treatment plan. Patient is alert and oriented to self and place and situation but gets confused about time. Patient mental status waxes and wanes. Later in the day patient became more confused. Lab work done this morning showed sodium 136 potassium 6 BUN 86, creatinine 4.4. Patient has been refusing surgery, vascular surgery discussed with patient, patient not agreeable at this time REVIEW OF SYSTEMS: CONSTITUTIONAL: No fever, no malaise,. CARDIOVASCULAR: No chest pain, no palpitations, no syncope. PULMONARY: No shortness of breath, no cough, GASTROINTESTINAL: No diarrhea, no nausea, no vomiting, no abdominal pain. NEUROLOGICAL: No headaches, no weakness, PHYSICAL EXAMINATION: GENERAL: The patient is alert and oriented x3, not in any acute distress. Well developed, well nourished. HEENT: Pupils are round and equally reacting to light. EOMI. No scleral icterus. No conjunctival pallor. Normocephalic, atraumatic. No pharyngeal erythema. No thyromegaly. CARDIOVASCULAR: S1 and S2 present. No murmurs, rubs, or gallops. PULMONARY: Chest is clear to auscultation, no wheezing or crackles. ABDOMEN: Soft, nontender, nondistended, normoactive bowel sounds. No palpable organomegaly. MUSCULOSKELETAL: No joint swelling or deformity. EXTREMITIES: Dressing intact to right foot. +1 pitting edema and erythema to the right leg. NEUROLOGICAL: Gross neurological examination did not reveal any focal deficits. SKIN: No rashes. Assessment and plan -Acute on chronic congestive heart failure nonischemic cardiomyopathy/systolic dysfunction EF less than 20% on IV lasix -Acute on chronic recurrent right lower leg cellulitis -infected right heel diabetic ulcer with prior history of debridement. Culture showing MRSA. Nonhealing. Patient now agreeable to amputation. Vascular following -Lower extremity chronic venous insufficiency -Hx of COPD -Diabetes mellitus type 2 chronically on insulin, uncontrolled with hypoglycemia -Hyperlipidemia -Chronic kidney disease stage III from diabetic nephropathy and nephrosclerosis -Acute kidney injury likely ATN from cardiorenal syndrome, worsening renal function -Altered mental status due to acute metabolic encephalopathy from ANGY -Hyperkalemia from the ANGY -moderate to severe MR/moderate TR and severe pulmonary hypertension -Hyponatremia on fluid restriction -Chronic low back pain. -Essential hypertension -Obstructive sleep apnea sometimes uses CPAP machine -Diabetic peripheral neuropathy -Anxiety -DJD -AICD -Lower extremity chronic venous insufficiency Monitor vital signs Monitor CBC Monitor CMP Continue telemetry monitoring Encourage use of incentive spirometer Monitor electrolytes Regarding Hyperkalemia, potassium shifters and lokelma ordered Continue IV Zosyn and daptomycin Vascular surgery following, discussed with patient regarding surgery, patient refused at this time Nephrology also following, discussed with patient regarding possible dialysis, patient this time is refusing but is agreeable to take lokelma and potassium shifters Monitor blood sugar levels, continue current insulin regimen Labs and medication were reviewed.. Continue same treatment. Continue with symptomatic treatment. Resume home medication. Monitor labs and vitals. DVT and GI prophylaxis. Further recommendations as per clinical course of the patient Dictation was produced using [employer] dictation software. please excuse any grammatical, word or spelling errors. Objective - Vital Signs Vital signs: Vital Signs Temp 97.9 F 06/21/23 06:52 Pulse 76 06/21/23 11:45 Resp 21 06/21/23 06:52 BP 116/75 06/21/23 09:18 Pulse Ox 98 11/24/23 07:49 FiO2 Intake & Output 06/20/23 06/21/23 06/21/23 18:59 06:59 18:59 Intake Total 240 Output Total 250 Balance -10 Weight 95.254 kg Intake: Oral 240 Output: Urine 250 Other: # Voids 2 0 - Labs CBC & Chem 7: 06/20/23 06:50 06/21/23 06:19 Labs: Abnormal Lab Results - Last 24 Hours (Table) 06/20/23 06/20/23 06/20/23 Range/Units 14:16 16:40 18:05 Sodium 136 L (137-145) mmol/L Potassium 6.4 H* 5.6 H (3.5-5.1) mmol/L Carbon Dioxide 16 L (22-30) mmol/L Anion Gap (4.00-12.00) mmol/L BUN 72 H (9-20) mg/dL Creatinine 3.91 H (0.66-1.25) mg/dL Est GFR (CKD-EPI) (>=60) Glucose 102 H (74-99) mg/dL POC Glucose (mg/dL) 114 H (70-110) mg/dL 06/20/23 06/21/23 06/21/23 Range/Units 20:22 06:06 06:19 Sodium (137-145) mmol/L Potassium 6.0 H (3.5-5.1) mmol/L Carbon Dioxide 12.3 L (22-30) mmol/L Anion Gap 26.70 H (4.00-12.00) mmol/L BUN 86.8 H (9-20) mg/dL Creatinine 4.4 H (0.66-1.25) mg/dL Est GFR (CKD-EPI) 15 L (>=60) Glucose 143 H (74-99) mg/dL POC Glucose (mg/dL) 147 H 138 H (70-110) mg/dL 06/21/23 Range/Units 11:07 Sodium (137-145) mmol/L Potassium (3.5-5.1) mmol/L Carbon Dioxide (22-30) mmol/L Anion Gap (4.00-12.00) mmol/L BUN (9-20) mg/dL Creatinine (0.66-1.25) mg/dL Est GFR (CKD-EPI) (>=60) Glucose (74-99) mg/dL POC Glucose (mg/dL) 153 H (70-110) mg/dL Microbiology - Last 24 Hours (Table) 06/15/23 16:55 Blood Culture - Final Blood 06/15/23 17:10 Blood Culture - Final Blood
[2023-06-21] MEDS: SODIUM CHLORIDE 0.9% 1,000 ML IV SCH (15:27)
[2023-06-21 16:49] LABS: Glucose,Whole Blood 180 mg/dL (70-110)
[2023-06-21 19:56] LABS: Glucose,Whole Blood 167 mg/dL (70-110)
[2023-06-21] MEDS ORDERED: SODIUM ZIRCONIUM CYCLOSILICATE 10 GM PACKET PO ONE (20:00)
[2023-06-22 05:53] LABS: Glucose,Whole Blood 143 mg/dL (70-110)
[2023-06-22] MEDS: SODIUM CHLORIDE 0.9% 1,000 ML IV SCH (06:50)
[2023-06-22] MEDS: INSULIN DETEMIR (LEVEMIR) 100 UNIT/ML SYR SQ SCH (06:51)
[2023-06-22] MEDS: MIDODRINE 5 MG TAB PO SCH ×3 (06:51→17:26)
[2023-06-22] MEDS: INSULIN ASPART (NovoLOG) 100 UNIT/ML VIAL SQ SCH ×4 (06:56→21:52)
[2023-06-22] MEDS: METOPROLOL SUCCINATE (ER) 25 MG TAB.ER.24H PO SCH (07:31)
[2023-06-22] MEDS: HEPARIN SODIUM,PORCINE 5,000 UNIT/ML 1 ML VIAL SQ SCH ×2 (07:31→16:07)
[2023-06-22] MEDS: DULoxetine HCL 60 MG CAPSULE.DR PO SCH ×2 (07:31→21:56)
[2023-06-22] MEDS: FAMOTIDINE 20 MG TAB PO SCH (07:31)
[2023-06-22] MEDS: ASPIRIN 81 MG PO SCH (07:31)
[2023-06-22] MEDS: LIDOCAINE 5% PATCH TOPICAL SCH (07:31)
[2023-06-22] MEDS: SODIUM BICARBONATE TAB 650 MG TAB PO SCH ×2 (07:31→21:56)
[2023-06-22] MEDS: PIPERACILLIN-TAZOBACTAM 3.375 GM in SODIUM CHLORIDE 0.9% 100 ML IVPB SCH ×2 (07:32→21:56)
--- NOTE | 2023-06-22 07:51 | P.PN ---
Subjective Progress Note Date: 06/20/23 Principal diagnosis: Reason for follow-up is right heel diabetic foot infection and osteomyelitis Patient is a 53-year-old male with a past medical history significant for diabetes mellitus hyperlipidemia hypertension [place] history of diabetic foot infection with a chronic nonhealing wound to the right heel area and underlying osteomyelitis with a previous culture positive for Proteus Acinetobacter providencia and anaerobes, presented to hospital with chest pain shortness of breath and some mental status changes On today's evaluation that is 06/20/2023, the patient continues to be afebrile, the patient is breathing comfortably on room air and the patient denies chest pain shortness of breath or cough , patient denies nausea/vomiting , no abdominal pain and no diarrhea pain to the right heel wound area Patient did have a white count of 15.32, creatinine is 3.91, local culture growing MRSA Objective - Vital Signs Vital signs: Vital Signs Temp 97.8 F 06/20/23 07:40 Pulse 92 06/20/23 12:18 Resp 16 06/20/23 07:40 BP 113/63 06/20/23 07:40 Pulse Ox 95 06/20/23 08:59 FiO2 Intake & Output 06/19/23 06/20/23 06/20/23 18:59 06:59 18:59 Output Total 250 Balance -250 Output: Urine 250 Other: Voiding Method Toilet Toilet Urinal Urinal # Voids 2 3 - Exam GENERAL DESCRIPTION: A middle-age male up in bed in no distress RESPIRATORY SYSTEM: Unlabored breathing , clear to auscultation anteriorly HEART: S1 S2 regular rate and rhythm , ABDOMEN: Soft , no tenderness EXTREMITIES: Right heel wound is currently dressed no drainage - Labs CBC & Chem 7: 06/20/23 06:50 06/21/23 18:07 Labs: Abnormal Lab Results - Last 24 Hours (Table) 06/19/23 06/19/23 06/20/23 Range/Units 16:56 20:50 06:50 WBC (4.50-10.00) X 10*3/uL Hgb (13.0-17.0) g/dL MCHC (32.0-37.0) g/dL RDW (11.5-14.5) % Neutrophils # (1.80-7.70) X 10*3/uL Monocytes # (0.20-1.00) X 10*3/uL Basophils # (0.00-0.10) X 10*3/uL Sodium 135 L (137-145) mmol/L Potassium 6.1 H* (3.5-5.1) mmol/L Carbon Dioxide 19 L (22-30) mmol/L BUN 70 H (9-20) mg/dL Creatinine 3.06 H (0.66-1.25) mg/dL POC Glucose (mg/dL) 173 H 115 H (70-110) mg/dL Magnesium 2.5 H (1.6-2.3) mg/dL 06/20/23 Range/Units 06:50 WBC 15.32 H (4.50-10.00) X 10*3/uL Hgb 12.3 L (13.0-17.0) g/dL MCHC 30.8 L (32.0-37.0) g/dL RDW 17.4 H (11.5-14.5) % Neutrophils # 11.19 H (1.80-7.70) X 10*3/uL Monocytes # 2.03 H (0.20-1.00) X 10*3/uL Basophils # 0.25 H (0.00-0.10) X 10*3/uL Sodium (137-145) mmol/L Potassium (3.5-5.1) mmol/L Carbon Dioxide (22-30) mmol/L BUN (9-20) mg/dL Creatinine (0.66-1.25) mg/dL POC Glucose (mg/dL) (70-110) mg/dL Magnesium (1.6-2.3) mg/dL Microbiology - Last 24 Hours (Table) 06/15/23 17:11 Anaerobic Culture - Final Foot - Right Laverne albicans Assessment and Plan (1) Wound of foot Current Visit: Yes Status: Acute Code(s): S91.309A - UNSPECIFIED OPEN WOUND, UNSPECIFIED FOOT, INITIAL ENCOUNTER SNOMED Code(s): 526274001 (2) Foot osteomyelitis, right Current Visit: No Status: Acute Code(s): M86.9 - OSTEOMYELITIS, UNSPECIFIED SNOMED Code(s): 5327320499994209 Plan: 1patient with the right heel diabetic foot infection with underlying osteomyelitis in this patient cultures were predominantly positive for gram- negative including Proteus Providencia Streptococcus and anaerobes while the patient has been getting IV Zosyn in the outpatient setting now presented to hospital predominantly with increasing shortness of breath and concern for mild CHF for which cardiology has been consulted overall right heel wound did not show any worsening and no foul-smelling drainage was noticed 2-patient to contiue with Zosyn 3.375 g every 8 hours and daptomycin, patient s eemed to have agree for amputation which is being arranged for tomorrow morning per nursing staff Dictation was produced using [employer] dictation software. please excuse any grammatical, word or spelling errors. Time with Patient: Less than 30
--- NOTE | 2023-06-22 07:53 | P.PN ---
Subjective Progress Note Date: 06/21/23 Principal diagnosis: Reason for follow-up is right heel diabetic foot infection and osteomyelitis Patient is a 53-year-old male with a past medical history significant for diabetes mellitus hyperlipidemia hypertension [place] history of diabetic foot infection with a chronic nonhealing wound to the right heel area and underlying osteomyelitis with a previous culture positive for Proteus Acinetobacter providencia and anaerobes, presented to hospital with chest pain shortness of breath and some mental status changes On today's evaluation that is 06/21/2023, the patient denies any fever or any chills, the patient is breathing comfortably on room air without the need for supplemental oxygen, patient denies chest pain shortness of breath and no significant cough or sputum production, patient denies Abdominal pain, no nausea/vomiting and denies having any diarrhea, the patient denies any worsening pain to the right heel wound area, pt seems to be slightly confused this am Patient did have a white count of 15.32 as of 06/20/2023, creatinine is 4.4, local culture growing MRSA Objective - Vital Signs Vital signs: Vital Signs Temp 97.9 F 06/21/23 06:52 Pulse 76 06/21/23 11:45 Resp 21 06/21/23 06:52 BP 116/75 06/21/23 09:18 Pulse Ox 98 06/21/23 07:49 FiO2 Intake & Output 06/20/23 06/21/23 06/21/23 18:59 06:59 18:59 Intake Total 240 Output Total 250 Balance -10 Weight 95.254 kg Intake: Oral 240 Output: Urine 250 Other: # Voids 2 0 - Exam GENERAL DESCRIPTION: A middle-age male up in bed in no distress RESPIRATORY SYSTEM: Unlabored breathing , clear to auscultation anteriorly HEART: S1 S2 regular rate and rhythm , ABDOMEN: Soft , no tenderness EXTREMITIES: Right heel wound is currently dressed no drainage - Labs CBC & Chem 7: 06/20/23 06:50 06/21/23 18:07 Labs: Abnormal Lab Results - Last 24 Hours (Table) 06/20/23 06/20/23 06/20/23 Range/Units 14:16 16:40 18:05 Sodium 136 L (137-145) mmol/L Potassium 6.4 H* 5.6 H (3.5-5.1) mmol/L Carbon Dioxide 16 L (22-30) mmol/L Anion Gap (4.00-12.00) mmol/L BUN 72 H (9-20) mg/dL Creatinine 3.91 H (0.66-1.25) mg/dL Est GFR (CKD-EPI) (>=60) Glucose 102 H (74-99) mg/dL POC Glucose (mg/dL) 114 H (70-110) mg/dL 06/20/23 06/21/23 06/21/23 Range/Units 20:22 06:06 06:19 Sodium (137-145) mmol/L Potassium 6.0 H (3.5-5.1) mmol/L Carbon Dioxide 12.3 L (22-30) mmol/L Anion Gap 26.70 H (4.00-12.00) mmol/L BUN 86.8 H (9-20) mg/dL Creatinine 4.4 H (0.66-1.25) mg/dL Est GFR (CKD-EPI) 15 L (>=60) Glucose 143 H (74-99) mg/dL POC Glucose (mg/dL) 147 H 138 H (70-110) mg/dL 06/21/23 Range/Units 11:07 Sodium (137-145) mmol/L Potassium (3.5-5.1) mmol/L Carbon Dioxide (22-30) mmol/L Anion Gap (4.00-12.00) mmol/L BUN (9-20) mg/dL Creatinine (0.66-1.25) mg/dL Est GFR (CKD-EPI) (>=60) Glucose (74-99) mg/dL POC Glucose (mg/dL) 153 H (70-110) mg/dL Microbiology - Last 24 Hours (Table) 06/15/23 16:55 Blood Culture - Final Blood 06/15/23 17:10 Blood Culture - Final Blood Assessment and Plan (1) Wound of foot Current Visit: Yes Status: Acute Code(s): S91.309A - UNSPECIFIED OPEN WOUND, UNSPECIFIED FOOT, INITIAL ENCOUNTER SNOMED Code(s): 255655563 (2) Foot osteomyelitis, right Current Visit: No Status: Acute Code(s): M86.9 - OSTEOMYELITIS, UNSPECIFIED SNOMED Code(s): 8621831529934550 Plan: 1patient with the right heel diabetic foot infection with underlying osteomyelitis in this patient cultures were predominantly positive for gram- negative including Proteus Providencia Streptococcus and anaerobes while the patient has been getting IV Zosyn in the outpatient setting now presented to hospital predominantly with increasing shortness of breath and concern for mild CHF for which cardiology has been consulted overall right heel wound did not show any worsening and no foul-smelling drainage was noticed 2-patient currently on Zosyn 3.375 g every 8 hours and daptomycin, patient seemed to have agree for amputation initially and now refusing , seems to be slightly confused , will benefit from psych evaluation , discussed with the vascular surgeon Dictation was produced using [employer] dictation software. please excuse any grammatical, word or spelling errors. Time with Patient: Less than 30
[2023-06-22] MEDS: IPRATROPIUM-ALBUTEROL 3 ML NEB INHALATION SCH ×4 (09:24→20:48)
[2023-06-22] MEDS: NICOTINE 14MG/24HR PATCH TRANSDERM SCH (10:08)
[2023-06-22 10:36] LABS: Anisocytosis Slight; Basophils # (A) 0.1 k/uL (0-0.2); Basophils % (A) 1 %; Eosinophils # (A) 0.1 k/uL (0-0.7); Eosinophils % (A) 1 %; HCT 39.9 % (39.0-53.0); HGB 12.3 gm/dL (13.0-17.5); Hypochromasia Marked; Lymphocytes # (A) 1.2 k/uL (1.0-4.8); Lymphocytes % (A) 9 %; MCH 28.2 pg (25.0-35.0); MCHC 30.7 g/dL (31.0-37.0); MCV 91.7 fL (80.0-100.0); Mean Platelet Volume 8.9; Monocytes # (A) 1.4 k/uL (0-1.0); Monocytes % (A) 11 %; Neutrophils % (A) 76 %; Platelet Count 239 k/uL (150-450); RBC 4.35 m/uL (4.30-5.90); RDW 16.4 % (11.5-15.5)
[2023-06-22] MEDS ORDERED: OLANZapine 10 MG VIAL IM PRN (11:35)
[2023-06-22 11:40] LABS: Glucose,Whole Blood 137 mg/dL (70-110)
--- NOTE | 2023-06-22 11:41 | P.CN ---
Psychiatric Consult - . Consult date: 06/22/23 Consult:: 06/22/23 10:59 IDENTIFYING DATA: This patient is a 53-year-old male, currently lives with his son in the house. REASON FOR REFERRAL: Psychiatry was consulted for "confusion, delusions" HISTORY OF PRESENT ILLNESS: The patient presented to the hospital on 06/15. Patient apparently was complaining of shortness of breath initially and was found to be fairly confused. Patient is apparently a noncompliant diabetic. Patient is being treated for his right foot infection. Computed tomography scan the brain was negative. UDS is positive for opiates TCAs and THC. Nurse claims the patient has been confused, sleep has been on and off. Patient was seen today laying in bed. Poor eye contact, poor attention span. Patient was able to give his name however does not know the correct date, he believes that he is "33 years old" and does not know where he currently is. He was very hesitant in his speech, easily distracted and disorganized. He was a poor historian, he was asking commercial insurance underwriter for water and very poor eye contact. At this time patient denies any suicidal or homical ideations, intent or plan. Patient denies any auditory, visual hallucinations. Sql Database Administrator was unable to gather further information due to patient's altered mental status PAST PSYCHIATRIC HISTORY: Unable to gather information. Patient is currently on Cymbalta 60 mg twice a day. Past Medical History: Asthma, Coronary Artery Disease (CAD), Chest Pain / Angina, Heart Failure, COPD, Diabetes Mellitus, GERD/Reflux, Hyperlipidemia, Hypertension, Myocardial Infarction ([place]), Pneumonia, Sleep Apnea/CPAP/BIPAP, Supraventricular Tachycardia (SVT) Additional Past Medical History / Comment(s): Ischemic cardiomyopathy, chronic CHF, SVT, IDDM type II, KAMINI with CPAP occasionally used, chronic cervical/back pain, DJD, diabetic foot wounds x 4 months. Last Myocardial Infarction Date:: 12/11/17 History of Any Multi-Drug Resistant Organisms: MRSA Date of last positivie culture/infection: 03/10/20 MDRO Source:: MRSA TOE Past Surgical History: Adenoidectomy, AICD, Back Surgery, Cholecystectomy, EPS, Heart Catheterization, Pacemaker, Tonsillectomy Additional Past Surgical History / Comment(s): 12/10/17 cardiac cath, previous cardiac cath, 09/02/14 AICD/pacer, EGD/colonoscopy, low back surgery with fusion. Past Anesthesia/Blood Transfusion Reactions: Motion Sickness Additional Past Anesthesia/Blood Transfusion Reaction / Comment(s): Pt states he received blood with back surgery without reaction. Type of Cardiac Device: Permanent Pacemaker, AICD Device Placement Date:: 09-02-14 Past Psychological History: ADD/ADHD, Anxiety Smoking Status: Current every day smoker Past Alcohol Use History: Occasional Past Drug Use History: Marijuana. ALLERGIES: as per EMR. CHEMICAL DEPENDENCY HISTORY: unAble to gather FAMILY PSYCHIATRIC/SUBSTANCE USE HISTORY: Unable to gather SOCIAL HISTORY: Patient lives with his son in a house, unable to gather further information. MENTAL STATUS EXAM: General Appearance: Patient appears to be have long hair, tattooed sleeves, stated age is alert, poor attention span, poor eye contact. Behavior: Patient is calmly lying in bed without any agitated behavior. Confused and restless Speech: Patient's speech is fluent and nonpressured. Hesitant Mood/Affect: Patient denies any changes in his mood, affect is constricted Suicidality/Homicidality: Patient denies having any suicidal or homicidal ideation intent or plan. Perceptions: Patient denies any visual hallucinations and denies any auditory hallucinations Though content/process: [place], poverty of content. Memory and concentration: AOX1, grossly poor attention span. Cannot spell "WORLD" backwards Judgment and insight: poor IMPRESSIONS: Delirium likely toxic metabolic etiology PLAN: -At this time patient DOES NOT meet criteria for inpatient psychiatric admission. -Delirium precautions recommended with patient including - avoiding use of narcotics and SK[place] SOCK LININGS sedatives, limit anticholinergic medications when possible, frequent re-orientation, minimize use of restraints, open window shades during the day and close them at night -Would recommend the following medication changes/additions: Please avoid benzodiazepines as this will increase patient's confusion. Discontinue Xanax and Ambien. Continue Cymbalta as prescribed. Change melatonin to 5 mg scheduled for sleep. Zyprexa IM and by mouth when necessary for agitation. Prolixin 2 mg twice a day for delirium/psychosis. -Communicated plan to patient's nurse -Will continue to follow along as needed -Please contact with any questions. 06/22/23 11:36
--- NOTE | 2023-06-22 13:30 | P.PN ---
Subjective Progress Note Date: 06/22/23 Patient is admitted for chronic right heel wound with osteomyelitis; continues on IV zosyn for a total of 6 weeks of antibiotic therapy. He continues to have lower extremity edema and remains on IV lasix daily and being followed closely by nephrology. Patient has been offered amputation in the past and has refused. Now he is will to undergo the amputation, Dr. Kaur following. There is concern for diminished/absent femoral pulse on the right leg. Scheduled for arterial ultrasound today. Labs today reveal white count 10.9, hemoglobin 11.8, sodium 136, potassium 4.7, BUN 56, creatinine 2.01. 06/19/2023 Patient evaluated today continues with lower extremity edema. Underwent arterial ultrasound with normal ankle brachial indices. Pending vascular decision regarding amputation. 06/20/2023 Patient evaluated today. Lasix has been increased to BID due to the lower extremity edema. Creatinine is now up to 3.06 and potassium 6.1 today. Continues on IV zosyn and IV daptyomcyin. Patient had a fall today while getting up from the chair and has had increased confusion. He did fall and hit his head with a laceration on eyebrow. 06/21. Patient seen and examined. Patient is very compliant with treatment plan. Patient is alert and oriented to self and place and situation but gets confused about time. Patient mental status waxes and wanes. Later in the day patient became more confused. Lab work done this morning showed sodium 136 potassium 6 BUN 86, creatinine 4.4. Patient has been refusing surgery, vascular surgery discussed with patient, patient not agreeable at this time 06/22. Patient seen and examined. Mental status waxes and wanes. Psych hss been consulted. Currently patient is only alert to self, shaking at times, gets Confused about surroundings. Currently patient is no capacity REVIEW OF SYSTEMS: CONSTITUTIONAL: No fever, no malaise,. CARDIOVASCULAR: No chest pain, no palpitations, no syncope. PULMONARY: No shortness of breath, no cough, GASTROINTESTINAL: No diarrhea, no nausea, no vomiting, no abdominal pain. NEUROLOGICAL: No headaches, no weakness, PHYSICAL EXAMINATION: GENERAL: The patient is alert and oriented x self and place, not in any acute distress. Well developed, well nourished. HEENT: Pupils are round and equally reacting to light. EOMI. No scleral icterus. No conjunctival pallor. Normocephalic, atraumatic. No pharyngeal erythema. No thyromegaly. CARDIOVASCULAR: S1 and S2 present. No murmurs, rubs, or gallops. PULMONARY: Chest is clear to auscultation, no wheezing or crackles. ABDOMEN: Soft, nontender, nondistended, normoactive bowel sounds. No palpable organomegaly. MUSCULOSKELETAL: No joint swelling or deformity. EXTREMITIES: Dressing intact to right foot. +1 pitting edema and erythema to the right leg. NEUROLOGICAL: Gross neurological examination did not reveal any focal deficits. SKIN: No rashes. Assessment and plan -Acute on chronic congestive heart failure nonischemic cardiomyopathy/systolic dysfunction EF less than 20% on IV lasix -Acute on chronic recurrent right lower leg cellulitis -infected right heel diabetic ulcer with prior history of debridement. Culture showing MRSA. Nonhealing. Patient now agreeable to amputation. Vascular following -Lower extremity chronic venous insufficiency -Hx of COPD -Diabetes mellitus type 2 chronically on insulin, uncontrolled with hypoglycemia -Hyperlipidemia -Chronic kidney disease stage III from diabetic nephropathy and nephrosclerosis -Acute kidney injury likely ATN from cardiorenal syndrome, worsening renal function -Altered mental status due to acute metabolic encephalopathy from ANGY -Hyperkalemia from the ANGY -moderate to severe MR/moderate TR and severe pulmonary hypertension -Hyponatremia on fluid restriction -Chronic low back pain. -Essential hypertension -Obstructive sleep apnea sometimes uses CPAP machine -Diabetic peripheral neuropathy -Anxiety -DJD -AICD -Lower extremity chronic venous insufficiency Monitor vital signs Monitor CBC Monitor CMP Continue telemetry monitoring Encourage use of incentive spirometer Monitor electrolytes Regarding Hyperkalemia, low potassium diet Continue IV Zosyn and daptomycin Continue IV fluids Vascular surgery following Nephrology also following Monitor blood sugar levels, continue current insulin regimen Psychiatry consulted Labs and medication were reviewed.. Continue same treatment. Continue with symptomatic treatment. Resume home medication. Monitor labs and vitals. DVT and GI prophylaxis. Further recommendations as per clinical course of the patient Dictation was produced using [employer] dictation software. please excuse any grammatical, word or spelling errors. Objective - Vital Signs Vital signs: Vital Signs Temp 98.5 F 06/22/23 02:12 Pulse 83 06/22/23 09:24 Resp 21 06/22/23 07:32 BP 106/69 06/22/23 07:32 Pulse Ox 98 06/22/23 09:26 FiO2 Intake & Output 06/21/23 06/22/23 06/22/23 18:59 06:59 18:59 Intake Total 300 Balance 300 Weight 95.254 kg Intake: Oral 300 Other: # Voids 0 - Labs CBC & Chem 7: 06/22/23 10:14 06/22/23 06:30 Labs: Abnormal Lab Results - Last 24 Hours (Table) 06/21/23 06/21/23 06/21/23 Range/Units 06:19 11:07 16:48 Potassium 6.0 H (3.5-5.5) mmol/L Carbon Dioxide 12.3 L (21.6-31.8) mmol/L Anion Gap 26.70 H (4.00-12.00) mmol/L BUN 86.8 H (9.0-27.0) mg/dL Creatinine 4.4 H (0.6-1.5) mg/dL Est GFR (CKD-EPI) 15 L (>=60) Glucose 143 H (70-110) mg/dL POC Glucose (mg/dL) 153 H 180 H (70-110) mg/dL 06/21/23 06/21/23 06/22/23 Range/Units 18:07 19:54 05:51 Potassium 5.5 H (3.5-5.5) mmol/L Carbon Dioxide (21.6-31.8) mmol/L Anion Gap (4.00-12.00) mmol/L BUN (9.0-27.0) mg/dL Creatinine (0.6-1.5) mg/dL Est GFR (CKD-EPI) (>=60) Glucose (70-110) mg/dL POC Glucose (mg/dL) 167 H 143 H (70-110) mg/dL
--- NOTE | 2023-06-22 14:00 | P.PN ---
Subjective Progress Note Date: 06/22/23 Follow-up for acute kidney injury. No urine output, Munoz in place. Confused, shaky. Objective - Vital Signs Vital signs: Vital Signs Temp 98.5 F 06/22/23 02:12 Pulse 83 06/22/23 13:40 Resp 19 06/22/23 13:40 BP 99/73 06/22/23 13:40 Pulse Ox 83 L 06/22/23 13:40 FiO2 Intake & Output 06/21/23 06/22/23 06/22/23 18:59 06:59 18:59 Intake Total 300 Output Total 280 Balance 300 -280 Weight 95.254 kg Intake: Oral 300 Output: Urine 280 Other: Voiding Method Toilet Indwelling Catheter # Voids 0 - Exam No acute distress S1-S2 heard Decreased breath sounds Abdomen soft Edema - Labs CBC & Chem 7: 06/22/23 10:14 06/22/23 06:30 Labs: Abnormal Lab Results - Last 24 Hours (Table) 06/21/23 06/21/23 06/21/23 Range/Units 16:48 18:07 19:54 WBC (3.8-10.6) k/uL Hgb (13.0-17.5) gm/dL MCHC (31.0-37.0) g/dL RDW (11.5-15.5) % Neutrophils # (1.3-7.7) k/uL Monocytes # (0-1.0) k/uL Potassium 5.5 H (3.5-5.1) mmol/L POC Glucose (mg/dL) 180 H 167 H (70-110) mg/dL 06/22/23 06/22/23 06/22/23 Range/Units 05:51 10:14 11:38 WBC 13.0 H (3.8-10.6) k/uL Hgb 12.3 L (13.0-17.5) gm/dL MCHC 30.7 L (31.0-37.0) g/dL RDW 16.4 H (11.5-15.5) % Neutrophils # 10.0 H (1.3-7.7) k/uL Monocytes # 1.4 H (0-1.0) k/uL Potassium (3.5-5.1) mmol/L POC Glucose (mg/dL) 143 H 137 H (70-110) mg/dL Assessment and Plan Assessment: #1 acute kidney injury secondary to ATN/CRS. -Baseline creatinine 1.4 MG per DL. -Urine analysis trace protein, 4+ glucose. #2 chronic kidney disease stage III secondary to diabetic kidney disease. #3 CHF with systolic dysfunction EF of 20% #4 hyperkalemia multifactorial. -Aldactone /acute kidney injury #5 metabolic acidosis. - Plan: #1 with recurrent hyperkalemia with medical management, decreased urine output and confusion. Discussed with the , agreeable for dialysis. #2 stop IV fluids #3 vascular surgery for Rodo catheter #4 hemodialysis today, plan again tomorrow. #5 plan of care discussed with the primary team. #6 continue with midodrine for hemodynamic support
[2023-06-22 14:15] LABS: ALT 436 U/L (4-49); AST 374 U/L (17-59); African American GFR (CKD) 10 (>60 ml/min/1.73 sqM); Albumin 3.9 g/dL (3.5-5.0); Alkaline Phosphatase 252 U/L (38-126); Anion Gap 22 mmol/L; Blood Urea Nitrogen 99 mg/dL (9-20); Carbon Dioxide 15 mmol/L (22-30); Chloride 102 mmol/L (98-107); Glucose 135 mg/dL (74-99); Non-African American GFR(CKD) 9 (>60 ml/min/1.73 sqM); Potassium 5.4 mmol/L (3.5-5.1); Sodium 139 mmol/L (137-145); Total Bilirubin 1.6 mg/dL (0.2-1.3); Total Protein 7.9 g/dL (6.3-8.2)
[2023-06-22] MEDS ORDERED: IV FLUID CONTINUATION 900 ML IV ONE (14:20)
[2023-06-22] MEDS ORDERED: MIDAZOLAM 2 MG/2 ML VIAL IVP ONE (14:22)
[2023-06-22] MEDS ORDERED: LIDOCAINE 1% INJ 10MG/ML (20 ML MDV) SQ ONE (14:24)
--- NOTE | 2023-06-22 14:42 | P.PCN ---
Description of Procedure: Preoperative diagnoses acute chronic renal failure Postoperative THE same Procedure patient brought to the Location Manager right groin were prepped and draped applied sterile manner 1% lidocaine was infited left groin. Ultrasound-guided micropuncture introduced the femoral vein micropuncture guidewire was passed after that we placed a 4-British top of guidewire. After that we passed a regular guidewire wire which was parked inferior vena cava dilator was passed on the top of guidewire then we placed 30 cm dialysis catheter on the top of guidewire guidewire was removed flushed with heparin saline and Hep-secured with 0 silk pressure dressing applied patient are the procedure well with catheter is inferior vena cava pressure dressing applied patient transferred the room in satisfactory condition
[2023-06-22] MEDS ORDERED: FLUMAZENIL 0.1 MG/ML 5 ML VIAL IVP PRN (15:28)
[2023-06-22 15:30] LABS: Glucose,Whole Blood 112 mg/dL (70-110)
[2023-06-22 15:36] LABS: ABG Base Excess -12.2 mmol/L; ABG HCO3 14 mmol/L (21-25); ABG Oxygen Saturation 98.9 % (94-97); ABG PCO2 26 mmHg (35-45); ABG PH 7.34 (7.35-7.45); ABG PO2 151 mmHg (83-108); ABG TCO2 14 mmol/L (19-24); Allen Test Performed? Yes
--- NOTE | 2023-06-22 16:21 | XR ---
EXAMINATION TYPE: XR chest 1V portable DATE OF EXAM: 06/22/2023 COMPARISON: 05/19/2023 HISTORY: Dyspnea TECHNIQUE: Single frontal view of the chest is obtained. FINDINGS: There is persistent marked cardiomegaly and single lead cardiac pacemaker. There is mild cephalization the pulmonary vasculature which was present on the prior study and could represent acute mild CHF. There are no large pleural effusions and there is no pneumothorax. The osse ous structures are intact. IMPRESSION: Findings suggestive of mild CHF. Clinical correlation and follow-up to resolution is rec ommended.
[2023-06-22 17:03] LABS: Glucose,Whole Blood 107 mg/dL (70-110)
[2023-06-22 20:32] LABS: Glucose,Whole Blood 90 mg/dL (70-110)
--- NOTE | 2023-06-22 21:05 | P.PN ---
Subjective Progress Note Date: 06/22/23 Principal diagnosis: Reason for follow-up is right heel diabetic foot infection and osteomyelitis Patient is a 53-year-old male with a past medical history significant for diabetes mellitus hyperlipidemia hypertension [place] history of diabetic foot infection with a chronic nonhealing wound to the right heel area and underlying osteomyelitis with a previous culture positive for Proteus Acinetobacter providencia and anaerobes, presented to hospital with chest pain shortness of breath and some mental status changes On today's evaluation that is 06/22/2023, the patient remains to be afebrile, the patient is breathing comfortably on 2 L nasal oxygen and t denies any sh ortness of breath, the patient denies chest pain or any cough , patient denies any nausea/vomiting abdominal pain or diarrhea, denies any worsening pain to bilateral lower extremity. The patient white count is slightly down to 13,000, creatinine is 6.46. Objective - Vital Signs Vital signs: Vital Signs Temp 98.5 F 06/22/23 02:12 Pulse 83 06/22/23 09:34 Resp 21 06/22/23 07:32 BP 106/69 06/22/23 07:32 Pulse Ox 98 06/22/23 09:26 FiO2 Intake & Output 06/21/23 06/22/23 06/22/23 18:59 06:59 18:59 Intake Total 300 Output Total 250 Balance 300 -250 Weight 95.254 kg Intake: Oral 300 Output: Urine 250 Other: # Voids 0 - Exam GENERAL DESCRIPTION: A middle-age male up in bed in no distress RESPIRATORY SYSTEM: Unlabored breathing , clear to auscultation anteriorly HEART: S1 S2 regular rate and rhythm , ABDOMEN: Soft , no tenderness EXTREMITIES: Right heel wound is currently dressed no drainage - Labs CBC & Chem 7: 06/22/23 10:14 06/22/23 13:35 Labs: Abnormal Lab Results - Last 24 Hours (Table) 06/21/23 06/21/23 06/21/23 Range/Units 06:19 11:07 16:48 WBC (3.8-10.6) k/uL Hgb (13.0-17.5) gm/dL MCHC (31.0-37.0) g/dL RDW (11.5-15.5) % Neutrophils # (1.3-7.7) k/uL Monocytes # (0-1.0) k/uL Potassium 6.0 H (3.5-5.5) mmol/L Carbon Dioxide 12.3 L (21.6-31.8) mmol/L Anion Gap 26.70 H (4.00-12.00) mmol/L BUN 86.8 H (9.0-27.0) mg/dL Creatinine 4.4 H (0.6-1.5) mg/dL Est GFR (CKD-EPI) 15 L (>=60) Glucose 143 H (70-110) mg/dL POC Glucose (mg/dL) 153 H 180 H (70-110) mg/dL 06/21/23 06/21/23 06/22/23 Range/Units 18:07 19:54 05:51 WBC (3.8-10.6) k/uL Hgb (13.0-17.5) gm/dL MCHC (31.0-37.0) g/dL RDW (11.5-15.5) % Neutrophils # (1.3-7.7) k/uL Monocytes # (0-1.0) k/uL Potassium 5.5 H (3.5-5.5) mmol/L Carbon Dioxide (21.6-31.8) mmol/L Anion Gap (4.00-12.00) mmol/L BUN (9.0-27.0) mg/dL Creatinine (0.6-1.5) mg/dL Est GFR (CKD-EPI) (>=60) Glucose (70-110) mg/dL POC Glucose (mg/dL) 167 H 143 H (70-110) mg/dL 06/22/23 Range/Units 10:14 WBC 13.0 H (3.8-10.6) k/uL Hgb 12.3 L (13.0-17.5) gm/dL MCHC 30.7 L (31.0-37.0) g/dL RDW 16.4 H (11.5-15.5) % Neutrophils # 10.0 H (1.3-7.7) k/uL Monocytes # 1.4 H (0-1.0) k/uL Potassium (3.5-5.5) mmol/L Carbon Dioxide (21.6-31.8) mmol/L Anion Gap (4.00-12.00) mmol/L BUN (9.0-27.0) mg/dL Creatinine (0.6-1.5) mg/dL Est GFR (CKD-EPI) (>=60) Glucose (70-110) mg/dL POC Glucose (mg/dL) (70-110) mg/dL Assessment and Plan (1) Wound of foot Current Visit: Yes Status: Acute Code(s): S91.309A - UNSPECIFIED OPEN WOUND, UNSPECIFIED FOOT, INITIAL ENCOUNTER SNOMED Code(s): 392647304 (2) Foot osteomyelitis, right Current Visit: No Status: Acute Code(s): M86.9 - OSTEOMYELITIS, UNSPECIFIED SNOMED Code(s): 2061816548725223 Plan: 1patient with the right heel diabetic foot infection with underlying osteomyelitis in this patient cultures were predominantly positive for gram- negative including Proteus Providencia Streptococcus and anaerobes , Culture done this admission has been positive for MRSA 2patient did have worsening of his kidney function vascular surgery reconsulted for dialysis catheter placement. 3we will continue patient on Zosyn and daptomycin and monitor clinical course closely prognosis remains to be guarded Dictation was produced using [employer] dictation software. please excuse any grammatical, word or spelling errors.
[2023-06-22] MEDS: MELATONIN 5 MG TABLET PO SCH (21:56)
[2023-06-22 23:35] LABS: Hepatitis B Surface Antigen Non-Reactive (Non-Reactive)
[2023-06-23] MEDS: HEPARIN SODIUM,PORCINE 5,000 UNIT/ML 1 ML VIAL SQ SCH ×4 (00:14→23:39)
[2023-06-23 05:53] LABS: Hepatitis B Surface AB- Quant 3.5 mIU/mL
[2023-06-23 06:11] LABS: Glucose,Whole Blood 91 mg/dL (70-110)
[2023-06-23] MEDS: MIDODRINE 5 MG TAB PO SCH ×3 (06:12→16:57)
[2023-06-23] MEDS: INSULIN DETEMIR (LEVEMIR) 100 UNIT/ML SYR SQ SCH (06:13)
[2023-06-23] MEDS: INSULIN ASPART (NovoLOG) 100 UNIT/ML VIAL SQ SCH ×4 (06:13→21:35)
[2023-06-23] MEDS: IPRATROPIUM-ALBUTEROL 3 ML NEB INHALATION SCH ×4 (07:59→19:57)
[2023-06-23] MEDS: PIPERACILLIN-TAZOBACTAM 3.375 GM in SODIUM CHLORIDE 0.9% 100 ML IVPB SCH ×2 (10:04→20:01)
[2023-06-23] MEDS: LIDOCAINE 5% PATCH TOPICAL SCH (10:09)
[2023-06-23] MEDS: METOPROLOL SUCCINATE (ER) 25 MG TAB.ER.24H PO SCH (10:10)
[2023-06-23 10:17] LABS: Glucose,Whole Blood 106 mg/dL (70-110)
[2023-06-23] MEDS: ASPIRIN 81 MG PO SCH (10:19)
[2023-06-23] MEDS: FAMOTIDINE 20 MG TAB PO SCH (10:19)
[2023-06-23] MEDS: SODIUM BICARBONATE TAB 650 MG TAB PO SCH ×2 (10:19→20:01)
[2023-06-23] MEDS: DULoxetine HCL 60 MG CAPSULE.DR PO SCH ×2 (10:19→20:01)
[2023-06-23] MEDS: NICOTINE 14MG/24HR PATCH TRANSDERM SCH (10:20)
--- NOTE | 2023-06-23 13:07 | P.PN ---
Subjective Progress Note Date: 06/23/23 Patient is admitted for chronic right heel wound with osteomyelitis; continues on IV zosyn for a total of 6 weeks of antibiotic therapy. He continues to have lower extremity edema and remains on IV lasix daily and being followed closely by nephrology. Patient has been offered amputation in the past and has refused. Now he is will to undergo the amputation, Dr. Kaur following. There is concern for diminished/absent femoral pulse on the right leg. Scheduled for arterial ultrasound today. Labs today reveal white count 10.9, hemoglobin 11.8, sodium 136, potassium 4.7, BUN 56, creatinine 2.01. 06/19/2023 Patient evaluated today continues with lower extremity edema. Underwent arterial ultrasound with normal ankle brachial indices. Pending vascular decision regarding amputation. 06/20/2023 Patient evaluated today. Lasix has been increased to BID due to the lower extremity edema. Creatinine is now up to 3.06 and potassium 6.1 today. Continues on IV zosyn and IV daptyomcyin. Patient had a fall today while getting up from the chair and has had increased confusion. He did fall and hit his head with a laceration on eyebrow. 06/21. Patient seen and examined. Patient is very compliant with treatment plan. Patient is alert and oriented to self and place and situation but gets confused about time. Patient mental status waxes and wanes. Later in the day patient became more confused. Lab work done this morning showed sodium 136 potassium 6 BUN 86, creatinine 4.4. Patient has been refusing surgery, vascular surgery discussed with patient, patient not agreeable at this time 06/22. Patient seen and examined. Mental status waxes and wanes. Psych hss been consulted. Currently patient is only alert to self, shaking at times, gets Confused about surroundings. Currently patient darlene no capacity 06/23. Patient seen and examined. Nephrology had discussed with patient's who is legally to the patient, she gave consent for initiation of dialysis. Patient underwent first cycle yesterday. Currently patient is alert and oriented to self and place and situation, mental status waxes and wanes REVIEW OF SYSTEMS: CONSTITUTIONAL: No fever, no malaise,. CARDIOVASCULAR: No chest pain, no palpitations, no syncope. PULMONARY: No shortness of breath, no cough, GASTROINTESTINAL: No diarrhea, no nausea, no vomiting, no abdominal pain. NEUROLOGICAL: No headaches, no weakness, PHYSICAL EXAMINATION: GENERAL: The patient is alert and oriented x self and place, not in any acute distress. Well developed, well nourished. HEENT: Pupils are round and equally reacting to light. EOMI. No scleral icterus. No conjunctival pallor. Normocephalic, atraumatic. No pharyngeal erythema. No thyromegaly. CARDIOVASCULAR: S1 and S2 present. No murmurs, rubs, or gallops. PULMONARY: Chest is clear to auscultation, no wheezing or crackles. ABDOMEN: Soft, nontender, nondistended, normoactive bowel sounds. No palpable organomegaly. MUSCULOSKELETAL: No joint swelling or deformity. EXTREMITIES: Dressing intact to right foot. +1 pitting edema and erythema to the right leg. NEUROLOGICAL: Gross neurological examination did not reveal any focal deficits. SKIN: No rashes. Assessment and plan -Acute on chronic congestive heart failure nonischemic cardiomyopathy/systolic dysfunction EF less than 20% on IV lasix -Acute on chronic recurrent right lower leg cellulitis -infected right heel diabetic ulcer with prior history of debridement. Culture showing MRSA. Nonhealing. Patient now agreeable to amputation. Vascular following -Lower extremity chronic venous insufficiency -Hx of COPD -Diabetes mellitus type 2 chronically on insulin, uncontrolled with hypoglycemia -Hyperlipidemia -Chronic kidney disease stage III from diabetic nephropathy and nephrosclerosis -Acute kidney injury likely ATN from cardiorenal syndrome, worsening renal function -Altered mental status due to acute metabolic encephalopathy from ANGY -Hyperkalemia from the ANGY -moderate to severe MR/moderate TR and severe pulmonary hypertension -Hyponatremia on fluid restriction -Chronic low back pain. -Essential hypertension -Obstructive sleep apnea sometimes uses CPAP machine -Diabetic peripheral neuropathy -Anxiety -DJD -AICD -Lower extremity chronic venous insufficiency Monitor vital signs Monitor CBC Monitor CMP Continue telemetry monitoring Encourage use of incentive spirometer Monitor electrolytes Continue dialysis per nephrology Continue IV Zosyn and daptomycin Vascular surgery following Nephrology also following Monitor blood sugar levels, continue current insulin regimen Psychiatry recommends Discontinue Xanax and Ambien. Continue Cymbalta as prescribed. Change melatonin to 5 mg scheduled for sleep. Zyprexa IM and by mouth when necessary for agitation. Prolixin 2 mg twice a day for delirium/psychosis. Labs and medication were reviewed.. Continue same treatment. Continue with symptomatic treatment. Resume home medication. Monitor labs and vitals. DVT and GI prophylaxis. Further recommendations as per clinical course of the patient Dictation was produced using [employer] dictation software. please excuse any grammatical, word or spelling errors. Objective - Vital Signs Vital signs: Vital Signs Temp 97.8 F 06/23/23 08:03 Pulse 86 06/23/23 08:03 Resp 21 06/23/23 08:03 BP 97/68 06/23/23 08:03 Pulse Ox 96 06/23/23 08:03 FiO2 Intake & Output 06/22/23 06/23/23 06/23/23 18:59 06:59 18:59 Intake Total 350 830 Output Total 330 2480 Balance 20 -1650 Intake: IV 50 Intake, IV Titration 400 Amount Piperacillin-Tazobactam 3 100 .375 gm In Sodium Chloride 0.9% 100 ml @ 25 mls/hr IVPB Q12HR LAN Rx #:[id number] Sodium Chloride 0.9% 1, 300 000 ml @ 75 mls/hr IV . [id number] LAN Rx#:[id number] Oral 300 30 Hemodialysis 400 Output: Urine 330 80 Hemodialysis 2400 Other: Voiding Method Toilet Indwelling Catheter Indwelling Catheter - Labs CBC & Chem 7: 06/22/23 10:14 06/22/23 13:35 Labs: Abnormal Lab Results - Last 24 Hours (Table) 06/22/23 06/22/23 06/22/23 Range/Units 10:14 11:38 13:35 WBC 13.0 H (3.8-10.6) k/uL Hgb 12.3 L (13.0-17.5) gm/dL MCHC 30.7 L (31.0-37.0) g/dL RDW 16.4 H (11.5-15.5) % Neutrophils # 10.0 H (1.3-7.7) k/uL Monocytes # 1.4 H (0-1.0) k/uL ABG pH (7.35-7.45) ABG pCO2 (35-45) mmHg ABG pO2 (83-108) mmHg ABG HCO3 (21-25) mmol/L ABG Total CO2 (19-24) mmol/L ABG O2 Saturation (94-97) % Potassium 5.4 H (3.5-5.1) mmol/L Carbon Dioxide 15 L (22-30) mmol/L BUN 99 H (9-20) mg/dL Creatinine 6.46 H (0.66-1.25) mg/dL Glucose 135 H (74-99) mg/dL POC Glucose (mg/dL) 137 H (70-110) mg/dL Total Bilirubin 1.6 H (0.2-1.3) mg/dL AST 374 H (17-59) U/L ALT 436 H (4-49) U/L Alkaline Phosphatase 252 H (38-126) U/L 06/22/23 06/22/23 Range/Units 15:20 15:32 WBC (3.8-10.6) k/uL Hgb (13.0-17.5) gm/dL MCHC (31.0-37.0) g/dL RDW (11.5-15.5) % Neutrophils # (1.3-7.7) k/uL Monocytes # (0-1.0) k/uL ABG pH 7.34 L (7.35-7.45) ABG pCO2 26 L (35-45) mmHg ABG pO2 151 H (83-108) mmHg ABG HCO3 14 L (21-25) mmol/L ABG Total CO2 14 L (19-24) mmol/L ABG O2 Saturation 98.9 H (94-97) % Potassium (3.5-5.1) mmol/L Carbon Dioxide (22-30) mmol/L BUN (9-20) mg/dL Creatinine (0.66-1.25) mg/dL Glucose (74-99) mg/dL POC Glucose (mg/dL) 112 H (70-110) mg/dL Total Bilirubin (0.2-1.3) mg/dL AST (17-59) U/L ALT (4-49) U/L Alkaline Phosphatase (38-126) U/L
--- NOTE | 2023-06-23 14:13 | P.CNPUL ---
History of Present Illness Consult date: 06/23/23 Requesting physician: Paulino Romero Reason for consult: dyspnea Chief complaint: Dyspnea History of present illness: This is a 53-year-old male patient with a known history of asthma, coronary disease, heart failure, COPD, diabetes mellitus, hyperlipidemia, hypertension, ischemic cardiomyopathy, chronic kidney disease, diabetes mellitus, obstructive sleep apnea with occasional CPAP use. He had been admitted back on May for shortness of breath and altered mental status. He has been a noncompliant diabetic. He had been receiving Zosyn via a PICC line in the right upper extremity for right foot infection and had been refusing amputation. Yesterday however 2019 the patient had undergone a right femoral hemodialysis catheter placement. He had received Versed. Upon his return to the room he had developed episodes of apnea and altered mental status and the rapid response team was called. He was given Narcan and improved. Chest x-ray had revealed evidence of mild congestive heart failure. Arterial blood gases revealed a pO2 of 151. PCO2 of 26 and a pH of 7.34. He is seen today in consultation on the regular medical floor. He is awake and alert. He is a poor historian. He does denies any worsening shortness of breath, cough or congestion. He is maintaining good O2 saturations in the mid 90s on room air. Afebrile. Hemodynamically stable. Review of Systems ROS unobtainable: due to mental status Past Medical History Past Medical History: Asthma, Coronary Artery Disease (CAD), Chest Pain / Angina, Heart Failure, COPD, Diabetes Mellitus, GERD/Reflux, Hyperlipidemia, H ypertension, Myocardial Infarction (VT), Pneumonia, Sleep Apnea/CPAP/BIPAP, Supraventricular Tachycardia (SVT) Additional Past Medical History / Comment(s): Ischemic cardiomyopathy, chronic CHF, SVT, IDDM type II, KAMINI with CPAP occasionally used, chronic cervical/back pain, DJD, diabetic foot wounds x 4 months. Last Myocardial Infarction Date:: 12/11/17 History of Any Multi-Drug Resistant Organisms: MRSA Date of last positivie culture/infection: 06/15/23 MDRO Source:: Right Foot Past Surgical History: Adenoidectomy, AICD, Back Surgery, Cholecystectomy, EPS, Heart Catheterization, Pacemaker, Tonsillectomy Additional Past Surgical History / Comment(s): 12/10/17 cardiac cath, previous cardiac cath, 2/5/15 AICD/pacer, EGD/colonoscopy, low back surgery with fusion. Past Anesthesia/Blood Transfusion Reactions: Motion Sickness Additional Past Anesthesia/Blood Transfusion Reaction / Comment(s): Pt states he received blood with back surgery without reaction. Type of Cardiac Device: Permanent Pacemaker, AICD Device Placement Date:: 09-02-14 Past Psychological History: ADD/ADHD, Anxiety Additional Psychological History / Comment(s): Pt lives with his old son. There are cats in the home. Pt is very independent. He states he would like a walker d/t his L foot wound. He drives. Pt states he has ADHD. Pt is disabled. He has a glucometer and nebulizer. The patient worked in the past building [employer] and [employer]. Smoking Status: Current every day smoker Past Alcohol Use History: Occasional Additional Past Alcohol Use History / Comment(s): patient states that he quit smoking 3 weeks ago Past Drug Use History: Marijuana Additional Drug Use History / Comment(s): Occasional marijuana use. - Past Family History Father Additional Family Medical History / Comment(s): Pt has not kept in close contact with his father for many yrs. Father was an alcoholic and pt believes he has from cirrhosis of the liver. Mother History Unknown: Yes Additional Family Medical History / Comment(s): Pt is not in contact with his mother or his father who he has heard had . Medications and Allergies Home Medications Medication Instructions Recorded Confirmed Type Albuterol Inhaler [Ventolin Hfa 2 puff INHALATION RT-QID PRN 07/06/22 06/15/23 History Inhaler] INSULIN LISPRO (humaLOG) [humaLOG] 5 - 10 unit SQ ACHS PRN 07/06/22 06/15/23 History Morphine Sulfate Ir [MSIR] 30 mg PO QID 07/06/22 06/15/23 History DULoxetine HCL [Cymbalta] 60 mg PO BID 11/18/22 06/15/23 History Cyclobenzaprine [Flexeril] 10 mg PO QID 05/14/23 06/15/23 History Zolpidem [Ambien] 10 mg PO HS PRN 05/14/23 06/15/23 History Piperacillin-Tazobactam [Zosyn] 3.375 gm IVPB Q8HR #120 each 05/22/23 06/15/23 Rx Aspirin 81 mg PO DAILY tab 05/29/23 06/15/23 Rx Atorvastatin [Lipitor] 40 mg PO DAILY #30 tab 05/29/23 06/15/23 Rx Bumetanide [BUMEX] 2 mg PO BID #120 tab 05/29/23 06/15/23 Rx Midodrine [ProAmatine] 5 mg PO AC-TID #100 tab 05/29/23 06/15/23 Rx Nicotine 14Mg/24Hr Patch [Habitrol] 1 patch TRANSDERM DAILY #14 patch 05/29/23 06/15/23 Rx Potassium Chloride ER [K-Dur 20] 20 meq PO DAILY #30 tab 05/29/23 06/15/23 Rx SILVER sulfADIAZINE CREAM 1 applic TOPICAL BID 06/04/23 06/15/23 History [Silvadene Cream] Dapagliflozin Propanediol [Farxiga] 10 mg PO DAILY #30 tab 06/10/23 06/15/23 Rx Insulin Glargine,Hum.rec.anlog 28 units SQ DAILY #0 06/10/23 06/15/23 Rx [Toujeo Solostar] Metoprolol Succinate (ER) [Toprol 25 mg PO DAILY #30 tab 06/10/23 06/15/23 Rx XL] Spironolactone [Aldactone] 25 mg PO DAILY #60 tab 06/10/23 06/15/23 Rx Allergies Allergy/AdvReac Type Severity Reaction Status Date / Time azithromycin Allergy Anaphylaxis Verified 06/15/23 19:17 gemfibrozil [From Lopid] Allergy Rash/Hives Verified 06/15/23 19:17 Physical Exam Vitals: Vital Signs Temp Pulse Pulse Resp BP Pulse Ox 06/23/23 13:19 98.1 F 96 21 113/81 96 06/23/23 11:22 88 86 21 06/23/23 11:13 86 06/23/23 08:03 97.8 F 86 21 97/68 96 06/23/23 07:59 96 06/23/23 01:14 98.5 F 89 105/82 99 06/22/23 21:48 97.7 F 81 18 100/57 99 06/22/23 19:58 98 F 82 99/66 100 11/25/23 17:23 87 103/73 06/22/23 15:48 87 06/22/23 15:38 87 06/22/23 15:26 10 L 06/22/23 15:00 14 99/73 95 Intake and Output 06/22/23 06/23/23 06/23/23 22:59 06:59 14:59 Intake Total 1130 Output Total 2480 50 30 Balance -1350 -50 -30 Intake: Intake, IV Titration 400 Amount Piperacillin-Tazobactam 3 100 .375 gm In Sodium Chloride 0.9% 100 ml @ 25 mls/hr IVPB Q12HR LAN Rx #:[id number] Sodium Chloride 0.9% 1, 300 000 ml @ 75 mls/hr IV . [id number] LAN Rx#:[id number] Oral 330 Hemodialysis 400 Output: Urine 80 50 30 Hemodialysis 2400 Other: Voiding Method Indwelling Catheter Indwelling Catheter GENERAL EXAM: Alert, oriented to self only, poor historian, 53-year-old male, on room air, comfortable in no apparent distress. HEAD: Normocephalic. EYES: Normal reaction of pupils, equal size. NOSE: Clear with pink turbinates. THROAT: No erythema or exudates. NECK: No masses, no JVD. CHEST: No chest wall deformity. LUNGS: Equal air entry with crackles in the posterior bases. CVS: S1 and S2 normal with no audible murmur, regular rhythm. ABDOMEN: No hepatosplenomegaly, normal bowel sounds, no guarding or rigidity. SPINE: No scoliosis or deformity SKIN: No rashes CENTRAL NERVOUS SYSTEM: No focal deficits, tone is normal in all 4 extremities. EXTREMITIES: Hemodialysis catheter in place. Dressing to the right foot. There is no peripheral edema. No clubbing, no cyanosis. Peripheral pulses are intact. Results - Laboratory Findings CBC and BMP: 06/22/23 10:14 06/22/23 13:35 ABG ABG pH 7.34 (7.35-7.45) L 06/22/23 15:32 ABG pCO2 26 mmHg (35-45) L 06/22/23 15:32 ABG pO2 151 mmHg (83-108) H 06/22/23 15:32 ABG O2 Saturation 98.9 % (94-97) H 06/22/23 15:32 PT/INR, D-dimer PT 14.6 sec (10.0-12.5) H 06/15/23 15:37 INR 1.4 (<1.2) H 06/15/23 15:37 Abnormal lab findings: Abnormal Labs 06/15/23 06/15/23 06/15/23 15:37 15:37 15:37 WBC 15.9 H RBC 4.00 L Hgb 11.6 L Hct 35.7 L MCHC RDW 16.2 H Neutrophils # 13.0 H Monocytes # Eosinophils # Basophils # NRBC/100 WBC Diff PT 14.6 H INR 1.4 H ABG pH ABG pCO2 ABG pO2 ABG HCO3 ABG Total CO2 ABG O2 Saturation Sodium Potassium Carbon Dioxide Anion Gap BUN Creatinine Est GFR (CKD-EPI) BUN/Creatinine Ratio Glucose POC Glucose (mg/dL) Magnesium Total Bilirubin AST ALT Alkaline Phosphatase Total Protein Urine Protein Urine Glucose (UA) Urine Opiates Screen Detected H U Tricyclic Antidepress Detected H U Marijuana (THC) Screen Detected H 06/15/23 06/15/23 06/15/23 15:37 15:55 17:11 WBC RBC Hgb Hct MCHC RDW Neutrophils # Monocytes # Eosinophils # Basophils # NRBC/100 WBC Diff PT INR ABG pH ABG pCO2 ABG pO2 ABG HCO3 ABG Total CO2 ABG O2 Saturation Sodium 134 L Potassium Carbon Dioxide Anion Gap BUN 53 H Creatinine 1.71 H Est GFR (CKD-EPI) BUN/Creatinine Ratio Glucose 267 H POC Glucose (mg/dL) 280 H Magnesium Total Bilirubin 1.4 H AST ALT 51 H Alkaline Phosphatase 202 H Total Protein Urine Protein Trace H Urine Glucose (UA) 4+ H Urine Opiates Screen U Tricyclic Antidepress U Marijuana (THC) Screen 06/16/23 06/16/23 06/16/23 05:15 06:30 06:30 WBC 12.85 H RBC 3.86 L Hgb 10.8 L Hct 34.0 L MCHC 31.8 L RDW 17.3 H Neutrophils # 8.68 H Monocytes # 1.16 H Eosinophils # 0.66 H Basophils # 0.17 H NRBC/100 WBC Diff 0.03 H PT INR ABG pH ABG pCO2 ABG pO2 ABG HCO3 ABG Total CO2 ABG O2 Saturation Sodium 132 L Potassium Carbon Dioxide Anion Gap 12.10 H BUN 51.2 H Creatinine 1.9 H Est GFR (CKD-EPI) 41 L BUN/Creatinine Ratio 26.95 H Glucose 275 H POC Glucose (mg/dL) 302 H Magnesium Total Bilirubin AST ALT Alkaline Phosphatase Total Protein Urine Protein Urine Glucose (UA) Urine Opiates Screen U Tricyclic Antidepress U Marijuana (THC) Screen 06/16/23 06/16/23 06/16/23 11:41 16:56 20:21 WBC RBC Hgb Hct MCHC RDW Neutrophils # Monocytes # Eosinophils # Basophils # NRBC/100 WBC Diff PT INR ABG pH ABG pCO2 ABG pO2 ABG HCO3 ABG Total CO2 ABG O2 Saturation Sodium Potassium Carbon Dioxide Anion Gap BUN Creatinine Est GFR (CKD-EPI) BUN/Creatinine Ratio Glucose POC Glucose (mg/dL) 212 H 125 H 153 H Magnesium Total Bilirubin AST ALT Alkaline Phosphatase Total Protein Urine Protein Urine Glucose (UA) Urine Opiates Screen U Tricyclic Antidepress U Marijuana (THC) Screen 06/16/23 06/17/23 06/17/23 22:03 11:43 16:45 WBC RBC Hgb Hct MCHC RDW Neutrophils # Monocytes # Eosinophils # Basophils # NRBC/100 WBC Diff PT INR ABG pH ABG pCO2 ABG pO2 ABG HCO3 ABG Total CO2 ABG O2 Saturation Sodium Potassium Carbon Dioxide Anion Gap BUN Creatinine Est GFR (CKD-EPI) BUN/Creatinine Ratio Glucose POC Glucose (mg/dL) 142 H 170 H 140 H Magnesium Total Bilirubin AST ALT Alkaline Phosphatase Total Protein Urine Protein Urine Glucose (UA) Urine Opiates Screen U Tricyclic Antidepress U Marijuana (THC) Screen 06/17/23 06/18/23 06/18/23 20:45 07:18 07:18 WBC 10.9 H RBC 4.15 L Hgb 11.8 L Hct 38.0 L MCHC RDW 16.2 H Neutrophils # Monocytes # Eosinophils # 0.9 H Basophils # NRBC/100 WBC Diff PT INR ABG pH ABG pCO2 ABG pO2 ABG HCO3 ABG Total CO2 ABG O2 Saturation Sodium 136 L Potassium Carbon Dioxide 16 L Anion Gap BUN 57 H Creatinine 1.98 H Est GFR (CKD-EPI) BUN/Creatinine Ratio Glucose POC Glucose (mg/dL) 210 H Magnesium Total Bilirubin AST ALT Alkaline Phosphatase 195 H Total Protein 8.3 H Urine Protein Urine Glucose (UA) Urine Opiates Screen U Tricyclic Antidepress U Marijuana (THC) Screen 06/18/23 06/18/23 06/18/23 07:18 11:32 16:36 WBC RBC Hgb Hct MCHC RDW Neutrophils # Monocytes # Eosinophils # Basophils # NRBC/100 WBC Diff PT INR ABG pH ABG pCO2 ABG pO2 ABG HCO3 ABG Total CO2 ABG O2 Saturation Sodium 136 L Potassium Carbon Dioxide 16 L Anion Gap BUN 56 H Creatinine 2.01 H Est GFR (CKD-EPI) BUN/Creatinine Ratio Glucose POC Glucose (mg/dL) 188 H 127 H Magnesium Total Bilirubin AST ALT Alkaline Phosphatase Total Protein Urine Protein Urine Glucose (UA) Urine Opiates Screen U Tricyclic Antidepress U Marijuana (THC) Screen 06/18/23 06/19/23 06/19/23 20:16 04:45 05:59 WBC RBC Hgb Hct MCHC RDW Neutrophils # Monocytes # Eosinophils # Basophils # NRBC/100 WBC Diff PT INR ABG pH ABG pCO2 ABG pO2 ABG HCO3 ABG Total CO2 ABG O2 Saturation Sodium Potassium Carbon Dioxide 18.2 L Anion Gap 16.80 H BUN 58.8 H Creatinine 2.3 H Est GFR (CKD-EPI) 33 L BUN/Creatinine Ratio 25.57 H Glucose 134 H POC Glucose (mg/dL) 122 H 135 H Magnesium Total Bilirubin AST ALT Alkaline Phosphatase Total Protein Urine Protein Urine Glucose (UA) Urine Opiates Screen U Tricyclic Antidepress U Marijuana (THC) Screen 06/19/23 06/19/23 06/19/23 11:18 16:56 20:50 WBC RBC Hgb Hct MCHC RDW Neutrophils # Monocytes # Eosinophils # Basophils # NRBC/100 WBC Diff PT INR ABG pH ABG pCO2 ABG pO2 ABG HCO3 ABG Total CO2 ABG O2 Saturation Sodium Potassium Carbon Dioxide Anion Gap BUN Creatinine Est GFR (CKD-EPI) BUN/Creatinine Ratio Glucose POC Glucose (mg/dL) 183 H 173 H 115 H Magnesium Total Bilirubin AST ALT Alkaline Phosphatase Total Protein Urine Protein Urine Glucose (UA) Urine Opiates Screen U Tricyclic Antidepress U Marijuana (THC) Screen 06/20/23 06/20/23 06/20/23 06:50 06:50 14:16 WBC 15.32 H RBC Hgb 12.3 L Hct MCHC 30.8 L RDW 17.4 H Neutrophils # 11.19 H Monocytes # 2.03 H Eosinophils # Basophils # 0.25 H NRBC/100 WBC Diff PT INR ABG pH ABG pCO2 ABG pO2 ABG HCO3 ABG Total CO2 ABG O2 Saturation Sodium 135 L 136 L Potassium 6.1 H* 6.4 H* Carbon Dioxide 19 L 16 L Anion Gap BUN 70 H 72 H Creatinine 3.06 H 3.91 H Est GFR (CKD-EPI) BUN/Creatinine Ratio Glucose 102 H POC Glucose (mg/dL) Magnesium 2.5 H Total Bilirubin AST ALT Alkaline Phosphatase Total Protein Urine Protein Urine Glucose (UA) Urine Opiates Screen U Tricyclic Antidepress U Marijuana (THC) Screen 06/20/23 06/20/23 06/20/23 16:40 18:05 20:22 WBC RBC Hgb Hct MCHC RDW Neutrophils # Monocytes # Eosinophils # Basophils # NRBC/100 WBC Diff PT INR ABG pH ABG pCO2 ABG pO2 ABG HCO3 ABG Total CO2 ABG O2 Saturation Sodium Potassium 5.6 H Carbon Dioxide Anion Gap BUN Creatinine Est GFR (CKD-EPI) BUN/Creatinine Ratio Glucose POC Glucose (mg/dL) 114 H 147 H Magnesium Total Bilirubin AST ALT Alkaline Phosphatase Total Protein Urine Protein Urine Glucose (UA) Urine Opiates Screen U Tricyclic Antidepress U Marijuana (THC) Screen 06/21/23 06/21/23 06/21/23 06:06 06:19 11:07 WBC RBC Hgb Hct MCHC RDW Neutrophils # Monocytes # Eosinophils # Basophils # NRBC/100 WBC Diff PT INR ABG pH ABG pCO2 ABG pO2 ABG HCO3 ABG Total CO2 ABG O2 Saturation Sodium Potassium 6.0 H Carbon Dioxide 12.3 L Anion Gap 26.70 H BUN 86.8 H Creatinine 4.4 H Est GFR (CKD-EPI) 15 L BUN/Creatinine Ratio Glucose 143 H POC Glucose (mg/dL) 138 H 153 H Magnesium Total Bilirubin AST ALT Alkaline Phosphatase Total Protein Urine Protein Urine Glucose (UA) Urine Opiates Screen U Tricyclic Antidepress U Marijuana (THC) Screen 06/21/23 06/21/23 06/21/23 16:48 18:07 19:54 WBC RBC Hgb Hct MCHC RDW Neutrophils # Monocytes # Eosinophils # Basophils # NRBC/100 WBC Diff PT INR ABG pH ABG pCO2 ABG pO2 ABG HCO3 ABG Total CO2 ABG O2 Saturation Sodium Potassium 5.5 H Carbon Dioxide Anion Gap BUN Creatinine Est GFR (CKD-EPI) BUN/Creatinine Ratio Glucose POC Glucose (mg/dL) 180 H 167 H Magnesium Total Bilirubin AST ALT Alkaline Phosphatase Total Protein Urine Protein Urine Glucose (UA) Urine Opiates Screen U Tricyclic Antidepress U Marijuana (THC) Screen 06/22/23 06/22/23 06/22/23 05:51 10:14 11:38 WBC 13.0 H RBC Hgb 12.3 L Hct MCHC 30.7 L RDW 16.4 H Neutrophils # 10.0 H Monocytes # 1.4 H Eosinophils # Basophils # NRBC/100 WBC Diff PT INR ABG pH ABG pCO2 ABG pO2 ABG HCO3 ABG Total CO2 ABG O2 Saturation Sodium Potassium Carbon Dioxide Anion Gap BUN Creatinine Est GFR (CKD-EPI) BUN/Creatinine Ratio Glucose POC Glucose (mg/dL) 143 H 137 H Magnesium Total Bilirubin AST ALT Alkaline Phosphatase Total Protein Urine Protein Urine Glucose (UA) Urine Opiates Screen U Tricyclic Antidepress U Marijuana (THC) Screen 06/22/23 06/22/23 06/22/23 13:35 15:20 15:32 WBC RBC Hgb Hct MCHC RDW Neutrophils # Monocytes # Eosinophils # Basophils # NRBC/100 WBC Diff PT INR ABG pH 7.34 L ABG pCO2 26 L ABG pO2 151 H ABG HCO3 14 L ABG Total CO2 14 L ABG O2 Saturation 98.9 H Sodium Potassium 5.4 H Carbon Dioxide 15 L Anion Gap BUN 99 H Creatinine 6.46 H Est GFR (CKD-EPI) BUN/Creatinine Ratio Glucose 135 H POC Glucose (mg/dL) 112 H Magnesium Total Bilirubin 1.6 H AST 374 H ALT 436 H Alkaline Phosphatase 252 H Total Protein Urine Protein Urine Glucose (UA) Urine Opiates Screen U Tricyclic Antidepress U Marijuana (THC) Screen - Diagnostic Findings Chest x-ray: image reviewed Assessment and Plan Assessment: Brief episode of apnea following hemodialysis catheter placement which required Versed. Reversed with Narcan and improved. Chest x-ray revealed mild pulmonary vascular congestion. Arterial blood gases were reviewed. Currently stable and on room air Acute on chronic congestive heart failure nonischemic cardiomyopathy/systolic dysfunction EF less than 20% Acute on chronic recurrent right lower leg cellulitis Infected right heel diabetic ulcer with prior history of debridement. Culture showing MRSA. Nonhealing Lower extremity chronic venous insufficiency COPD, currently stable Diabetes mellitus type 2 chronically on insulin, uncontrolled with hypoglycemia Hyperlipidemia Chronic kidney disease stage III from diabetic nephropathy and nephrosclerosis Acute kidney injury likely ATN from cardiorenal syndrome, worsening renal function Altered mental status due to acute metabolic encephalopathy from ANGY Hyperkalemia from the ANGY Moderate to severe MR/moderate TR and severe pulmonary hypertension Hyponatremia on fluid restriction Chronic low back pain Essential hypertension Obstructive sleep apnea sometimes uses CPAP machine Diabetic peripheral neuropathy Ischemic cardiomyopathy status post AICD Lower extremity chronic venous insufficiency Plan: The patient was seen and evaluated Chest x-ray, labs and medications reviewed Currently stable and on room air Cautious use of sedatives and narcotics Encouraged to use home CPAP nightly We will continue to follow and make further recommendations based on his clinical status I have personally seen and examined the patient, performed the documentation and the assessment and plan as written. Number of minutes spent on the visit: 20.
--- NOTE | 2023-06-23 15:08 | P.PN ---
Subjective Progress Note Date: 06/23/23 Follow-up for acute kidney injury. Hemodialysis was started yesterday, tolerated well. Seen during dialysis today, tolerating well. Still mildly confused. No nausea vomiting or diarrhea.. Objective - Vital Signs Vital signs: Vital Signs Temp 98.1 F 06/23/23 13:19 Pulse 96 06/23/23 13:19 Resp 21 06/23/23 13:19 BP 113/81 06/23/23 13:19 Pulse Ox 96 06/23/23 13:19 FiO2 Intake & Output 06/22/23 06/23/23 06/23/23 18:59 06:59 18:59 Intake Total 350 830 450 Output Total 330 2480 30 Balance 20 -1650 420 Intake: IV 50 Intake, IV Titration 400 Amount Piperacillin-Tazobactam 3 100 .375 gm In Sodium Chloride 0.9% 100 ml @ 25 mls/hr IVPB Q12HR LAN Rx #:[id number] Sodium Chloride 0.9% 1, 300 000 ml @ 75 mls/hr IV . [id number] LAN Rx#:[id number] Oral 300 30 450 Hemodialysis 400 Output: Urine 330 80 30 Hemodialysis 2400 Other: Voiding Method Toilet Indwelling Catheter Indwelling Catheter Indwelling Catheter - Exam No acute distress S1-S2 heard Decreased breath sounds Abdomen soft Edema - Labs CBC & Chem 7: 06/22/23 10:14 06/22/23 13:35 Labs: Abnormal Lab Results - Last 24 Hours (Table) 06/22/23 06/22/23 Range/Units 15:20 15:32 ABG pH 7.34 L (7.35-7.45) ABG pCO2 26 L (35-45) mmHg ABG pO2 151 H (83-108) mmHg ABG HCO3 14 L (21-25) mmol/L ABG Total CO2 14 L (19-24) mmol/L ABG O2 Saturation 98.9 H (94-97) % POC Glucose (mg/dL) 112 H (70-110) mg/dL Assessment and Plan Assessment: #1 acute kidney injury secondary to ATN/CRS. -Baseline creatinine 1.4 MG per DL. -Urine analysis trace protein, 4+ glucose. #2 chronic kidney disease stage III secondary to diabetic kidney disease. #3 CHF with systolic dysfunction EF of 20% #4 hyperkalemia multifactorial. -Aldactone /acute kidney injury #5 metabolic acidosis. - Plan: #1 with recurrent hyperkalemia with medical management, decreased urine output and confusion. Discussed with the , agreeable for dialysis. #2 second treatment today. Plan again for tomorrow. #3 appreciate vascular surgery input. #4 continue with midodrine for hemodynamic support
[2023-06-23 16:47] LABS: Glucose,Whole Blood 63 mg/dL (70-110)
[2023-06-23 17:21] LABS: Glucose,Whole Blood 56 mg/dL (70-110)
[2023-06-23] MEDS: DEXTROSE 50% SYRINGE 50 ML IVP PRN (17:26)
[2023-06-23 17:39] LABS: Glucose,Whole Blood 123 mg/dL (70-110)
[2023-06-23 18:27] LABS: Glucose,Whole Blood 86 mg/dL (70-110)
[2023-06-23] MEDS: MELATONIN 5 MG TABLET PO SCH (20:01)
[2023-06-23 20:57] LABS: Glucose,Whole Blood 160 mg/dL (70-110)
[2023-06-24] MEDS: ACETAMINOPHEN TAB 325 MG TAB PO PRN ×2 (03:47→22:28)
[2023-06-24 06:13] LABS: Glucose,Whole Blood 177 mg/dL (70-110)
[2023-06-24] MEDS: INSULIN ASPART (NovoLOG) 100 UNIT/ML VIAL SQ SCH ×4 (06:24→22:29)
[2023-06-24] MEDS: IPRATROPIUM-ALBUTEROL 3 ML NEB INHALATION SCH ×4 (07:34→20:51)
[2023-06-24] MEDS: FAMOTIDINE 20 MG TAB PO SCH (08:11)
[2023-06-24] MEDS: METOPROLOL SUCCINATE (ER) 25 MG TAB.ER.24H PO SCH (08:11)
[2023-06-24] MEDS: DULoxetine HCL 60 MG CAPSULE.DR PO SCH (08:11)
[2023-06-24] MEDS: ASPIRIN 81 MG PO SCH (08:11)
[2023-06-24] MEDS: PIPERACILLIN-TAZOBACTAM 3.375 GM in SODIUM CHLORIDE 0.9% 100 ML IVPB SCH ×2 (08:12→22:29)
[2023-06-24] MEDS: SODIUM BICARBONATE TAB 650 MG TAB PO SCH ×2 (08:12→22:28)
[2023-06-24] MEDS: MIDODRINE 5 MG TAB PO SCH ×3 (08:12→17:20)
[2023-06-24] MEDS: HEPARIN SODIUM,PORCINE 5,000 UNIT/ML 1 ML VIAL SQ SCH ×3 (08:13→23:43)
[2023-06-24] MEDS: INSULIN DETEMIR (LEVEMIR) 100 UNIT/ML SYR SQ SCH (08:13)
[2023-06-24] MEDS: LIDOCAINE 5% PATCH TOPICAL SCH (08:13)
[2023-06-24] MEDS: NICOTINE 14MG/24HR PATCH TRANSDERM SCH (08:14)
[2023-06-24 08:53] LABS: Basophils # (A) 0.16 X 10*3/uL (0.00-0.10); Basophils % (A) 1.3 %; Eosinophils % (A) 1.6 %; HCT 38.6 % (39.6-50.0); HGB 12.3 g/dL (13.0-17.0); Lymphocytes # (A) 1.52 X 10*3/uL (0.90-5.00); Lymphocytes % (A) 12.3 %; MCH 27.4 pg (27.0-32.0); MCHC 31.9 g/dL (32.0-37.0); Mean Platelet Volume 11.3 FL (9.5-12.2); Monocytes # (A) 1.75 X 10*3/uL (0.20-1.00); Monocytes % (A) 14.1 %; NRBC Per 100 WBC 0.02 X 10*3/uL (0.00-0.01); Neutrophils # (A) 8.73 X 10*3/uL (1.80-7.70); Neutrophils % (A) 70.4 %; Platelet Count 173 X 10*3/uL (140-440); RBC 4.49 X 10*6/uL (4.40-5.60); RDW 18.4 % (11.5-14.5)
[2023-06-24 09:10] LABS: ALT 353 U/L (10-49); AST 205 U/L (14-35); Albumin 3.5 g/dL (3.8-4.9); Albumin/Globulin Ratio 0.97 Ratio (1.60-3.17); Alkaline Phosphatase 345 U/L (41-126); BUN/Creat Ratio 12.98 Ratio (12.00-20.00); Blood Urea Nitrogen 62.3 mg/dL (9.0-27.0); Calcium 9.1 mg/dL (8.7-10.3); Carbon Dioxide 19.7 mmol/L (21.6-31.8); Chloride 99 mmol/L (96-109); Globulin 3.6 g/dL (1.6-3.3); Glucose 83 mg/dL (70-110); Sodium 138 mmol/L (135-145); Total Bilirubin 1.7 mg/dL (0.3-1.2); Total Protein 7.1 g/dL (6.2-8.2)
--- NOTE | 2023-06-24 10:23 | P.PN ---
Subjective Patient is seen in follow-up for acute kidney injury on chronic kidney disease. Started on hemodialysis 06/22/2023. Has femoral catheter. Resting in bed. Lethargic. Vital signs are stable. General: No acute distress. HEENT: Head exam is unremarkable. LUNGS: No audible rhonchi or wheezes. HEART: Rate and Rhythm are regular. ABDOMEN: Nontender. EXTREMITITES: 1+ edema. Wounds noted. Objective - Vital Signs Vital signs: Vital Signs Temp 98.2 F 06/24/23 07:09 Pulse 84 06/24/23 07:50 Resp 20 06/24/23 07:09 BP 107/71 06/24/23 07:09 Pulse Ox 95 06/24/23 07:36 FiO2 Intake & Output 06/23/23 06/24/23 06/24/23 18:59 06:59 18:59 Intake Total 850 10 Output Total 2009 100 Balance -1160 -90 Weight 104.5 kg Intake: IV 10 Invasive Line 1 10 Oral 450 Hemodialysis 400 Output: Urine 110 100 Hemodialysis 1900 Other: Voiding Method Indwelling Catheter Indwelling Catheter # Voids 0 - Labs CBC & Chem 7: 06/24/23 04:13 06/24/23 04:13 Labs: Abnormal Lab Results - Last 24 Hours (Table) 06/23/23 06/23/23 06/23/23 Range/Units 16:45 17:19 17:38 WBC (4.50-10.00) X 10*3/uL Hgb (13.0-17.0) g/dL Hct (39.6-50.0) % MCHC (32.0-37.0) g/dL RDW (11.5-14.5) % Neutrophils # (1.80-7.70) X 10*3/uL Monocytes # (0.20-1.00) X 10*3/uL Basophils # (0.00-0.10) X 10*3/uL NRBC/100 WBC Diff (0.00-0.01) X 10*3/uL Carbon Dioxide (21.6-31.8) mmol/L Anion Gap (4.00-12.00) mmol/L BUN (9.0-27.0) mg/dL Creatinine (0.6-1.5) mg/dL Est GFR (CKD-EPI) (>=60) POC Glucose (mg/dL) 63 L 56 L 123 H (70-110) mg/dL Total Bilirubin (0.3-1.2) mg/dL AST (14-35) U/L ALT (10-49) U/L Alkaline Phosphatase (41-126) U/L Albumin (3.8-4.9) g/dL Globulin (1.6-3.3) g/dL Albumin/Globulin Ratio (1.60-3.17) Ratio 06/23/23 06/24/23 06/24/23 Range/Units 20:55 04:13 04:13 WBC 12.40 H (4.50-10.00) X 10*3/uL Hgb 12.3 L (13.0-17.0) g/dL Hct 38.6 L (39.6-50.0) % MCHC 31.9 L (32.0-37.0) g/dL RDW 18.4 H (11.5-14.5) % Neutrophils # 8.73 H (1.80-7.70) X 10*3/uL Monocytes # 1.75 H (0.20-1.00) X 10*3/uL Basophils # 0.16 H (0.00-0.10) X 10*3/uL NRBC/100 WBC Diff 0.02 H (0.00-0.01) X 10*3/uL Carbon Dioxide 19.7 L (21.6-31.8) mmol/L Anion Gap 19.30 H (4.00-12.00) mmol/L BUN 62.3 H (9.0-27.0) mg/dL Creatinine 4.8 H (0.6-1.5) mg/dL Est GFR (CKD-EPI) 14 L (>=60) POC Glucose (mg/dL) 160 H (70-110) mg/dL Total Bilirubin 1.7 H (0.3-1.2) mg/dL AST 205 H (14-35) U/L ALT 353 H (10-49) U/L Alkaline Phosphatase 345 H (41-126) U/L Albumin 3.5 L (3.8-4.9) g/dL Globulin 3.6 H (1.6-3.3) g/dL Albumin/Globulin Ratio 0.97 L (1.60-3.17) Ratio 06/24/23 Range/Units 06:11 WBC (4.50-10.00) X 10*3/uL Hgb (13.0-17.0) g/dL Hct (39.6-50.0) % MCHC (32.0-37.0) g/dL RDW (11.5-14.5) % Neutrophils # (1.80-7.70) X 10*3/uL Monocytes # (0.20-1.00) X 10*3/uL Basophils # (0.00-0.10) X 10*3/uL NRBC/100 WBC Diff (0.00-0.01) X 10*3/uL Carbon Dioxide (21.6-31.8) mmol/L Anion Gap (4.00-12.00) mmol/L BUN (9.0-27.0) mg/dL Creatinine (0.6-1.5) mg/dL Est GFR (CKD-EPI) (>=60) POC Glucose (mg/dL) 177 H (70-110) mg/dL Total Bilirubin (0.3-1.2) mg/dL AST (14-35) U/L ALT (10-49) U/L Alkaline Phosphatase (41-126) U/L Albumin (3.8-4.9) g/dL Globulin (1.6-3.3) g/dL Albumin/Globulin Ratio (1.60-3.17) Ratio Assessment and Plan Plan: Assessment: 1. Acute kidney injury secondary to ATN secondary to cardiorenal syndrome. Creatinine 1.7-2.3 from last admission. No hydronephrosis noted on ultrasound on 05/16/2023. Trace protein on UA. Renal function worsened this admission with creatinine up to 6.46 dated 06/22/2023. Also low urine output. Started on hemodialysis 06/22/2023. Has left femoral catheter. 2. Chronic kidney disease stage IIIa secondary to diabetic kidney disease and cardiorenal syndrome. Creatinine 1.4 dated 06/03/2023 but from last admission. 3. Volume overload. Improving with ultrafiltration. 4. Acute on chronic systolic CHF with ejection fraction of less than 20% with moderate to severe mitral regurgitation, moderate tricuspid regurgitation and se sabina pulmonary hypertension. 5. Diabetes mellitus. 6. Metabolic acidosis secondary to acute kidney injury. On oral bicarb. Improving. Plan: Hemodialysis today. Monitor for renal recovery. Avoid nephrotoxins. Maintain midodrine.
[2023-06-24 11:37] LABS: Glucose,Whole Blood 129 mg/dL (70-110)
--- NOTE | 2023-06-24 12:45 | P.PN ---
Subjective Progress Note Date: 06/23/23 Principal diagnosis: Reason for follow-up is right heel diabetic foot infection and osteomyelitis Patient is a 53-year-old male with a past medical history significant for diabetes mellitus hyperlipidemia hypertension [place] history of diabetic foot infection with a chronic nonhealing wound to the right heel area and underlying osteomyelitis with a previous culture positive for Proteus Acinetobacter providencia and anaerobes, presented to hospital with chest pain shortness of breath and some mental status changes, patient did have worsening of his kidney function requiring dialysis catheter placement and has been started on dialysis On today's evaluation that is 06/23/2023, the patient continues to be afebrile, the patient is breathing comfortably on 2 L nasal oxygen , the patient is sleepy and lethargic this morning and did not answer any questions no vomiting or diarrhea has been reported by the nursing staff The patient white count is 13,000, creatinine is 6.46 as of 06/22/2023, nor lab draw today Objective - Vital Signs Vital signs: Vital Signs Temp 98.5 F 06/23/23 01:14 Pulse 89 06/23/23 01:14 Resp 18 06/22/23 21:48 BP 105/82 06/23/23 01:14 Pulse Ox 99 06/23/23 01:14 FiO2 Intake & Output 06/22/23 06/23/23 06/23/23 18:59 06:59 18:59 Intake Total 350 830 Output Total 330 2480 Balance 20 -1650 Intake: IV 50 Intake, IV Titration 400 Amount Piperacillin-Tazobactam 3 100 .375 gm In Sodium Chloride 0.9% 100 ml @ 25 mls/hr IVPB Q12HR LAN Rx #:[id number] Sodium Chloride 0.9% 1, 300 000 ml @ 75 mls/hr IV . [id number] LAN Rx#:[id number] Oral 300 30 Hemodialysis 400 Output: Urine 330 80 Hemodialysis 2400 Other: Voiding Method Toilet Indwelling Catheter Indwelling Catheter - Exam GENERAL DESCRIPTION: A middle-age male up in bed in no distress RESPIRATORY SYSTEM: Unlabored breathing , clear to auscultation anteriorly HEART: S1 S2 regular rate and rhythm , ABDOMEN: Soft , no tenderness EXTREMITIES: Right heel wound is currently dressed no drainage - Labs CBC & Chem 7: 06/24/23 04:13 06/24/23 04:13 Labs: Abnormal Lab Results - Last 24 Hours (Table) 06/22/23 06/22/23 06/22/23 Range/Units 10:14 11:38 13:35 WBC 13.0 H (3.8-10.6) k/uL Hgb 12.3 L (13.0-17.5) gm/dL MCHC 30.7 L (31.0-37.0) g/dL RDW 16.4 H (11.5-15.5) % Neutrophils # 10.0 H (1.3-7.7) k/uL Monocytes # 1.4 H (0-1.0) k/uL ABG pH (7.35-7.45) ABG pCO2 (35-45) mmHg ABG pO2 (83-108) mmHg ABG HCO3 (21-25) mmol/L ABG Total CO2 (19-24) mmol/L ABG O2 Saturation (94-97) % Potassium 5.4 H (3.5-5.1) mmol/L Carbon Dioxide 15 L (22-30) mmol/L BUN 99 H (9-20) mg/dL Creatinine 6.46 H (0.66-1.25) mg/dL Glucose 135 H (74-99) mg/dL POC Glucose (mg/dL) 137 H (70-110) mg/dL Total Bilirubin 1.6 H (0.2-1.3) mg/dL AST 374 H (17-59) U/L ALT 436 H (4-49) U/L Alkaline Phosphatase 252 H (38-126) U/L 06/22/23 06/22/23 Range/Units 15:20 15:32 WBC (3.8-10.6) k/uL Hgb (13.0-17.5) gm/dL MCHC (31.0-37.0) g/dL RDW (11.5-15.5) % Neutrophils # (1.3-7.7) k/uL Monocytes # (0-1.0) k/uL ABG pH 7.34 L (7.35-7.45) ABG pCO2 26 L (35-45) mmHg ABG pO2 151 H (83-108) mmHg ABG HCO3 14 L (21-25) mmol/L ABG Total CO2 14 L (19-24) mmol/L ABG O2 Saturation 98.9 H (94-97) % Potassium (3.5-5.1) mmol/L Carbon Dioxide (22-30) mmol/L BUN (9-20) mg/dL Creatinine (0.66-1.25) mg/dL Glucose (74-99) mg/dL POC Glucose (mg/dL) 112 H (70-110) mg/dL Total Bilirubin (0.2-1.3) mg/dL AST (17-59) U/L ALT (4-49) U/L Alkaline Phosphatase (38-126) U/L Assessment and Plan (1) Wound of foot Current Visit: Yes Status: Acute Code(s): S91.309A - UNSPECIFIED OPEN WOUND, UNSPECIFIED FOOT, INITIAL ENCOUNTER SNOMED Code(s): 998428534 (2) Foot osteomyelitis, right Current Visit: No Status: Acute Code(s): M86.9 - OSTEOMYELITIS, UNSPECIFIED SNOMED Code(s): 0664882130989138 Plan: 1patient with the right heel diabetic foot infection with underlying osteomyelitis in this patient cultures were predominantly positive for gram- negative including Proteus Providencia Streptococcus and anaerobes , Culture done this admission has been positive for MRSA 2patient did have worsening of his kidney function vascular surgery as placed dialysis catheter and the patient started on dialysis 3patient continue patient on Zosyn and daptomycin and monitor clinical course closely Dictation was produced using [employer] dictation software. please excuse any grammatical, word or spelling errors. Time with Patient: Less than 30
--- NOTE | 2023-06-24 12:46 | P.PN ---
Subjective Progress Note Date: 06/24/23 Principal diagnosis: Reason for follow-up is right heel diabetic foot infection and osteomyelitis Patient is a 53-year-old male with a past medical history significant for diabetes mellitus hyperlipidemia hypertension [place] history of diabetic foot infection with a chronic nonhealing wound to the right heel area and underlying osteomyelitis with a previous culture positive for Proteus Acinetobacter providencia and anaerobes, presented to hospital with chest pain shortness of breath and some mental status changes, patient did have worsening of his kidney function requiring dialysis catheter placement and has been started on dialysis On today's evaluation that is 06/24/2023, the patient remains to be afebrile, the patient is breathing comfortably on 2 L nasal oxygen , the patient remains to be sleepy and lethargic and did not answer any questions no vomiting or diarrhea has been reported by the nursing staff The patient white count is 12.40 and creatinine is 4.8 Objective - Vital Signs Vital signs: Vital Signs Temp 98.2 F 06/24/23 07:09 Pulse 84 06/24/23 11:36 Resp 20 06/24/23 07:09 BP 107/71 06/24/23 07:09 Pulse Ox 95 06/24/23 07:36 FiO2 Intake & Output 06/23/23 06/24/23 06/24/23 18:59 06:59 18:59 Intake Total 850 10 10 Output Total 2009 100 Balance -1160 -90 10 Weight 104.5 kg Intake: IV 10 10 Invasive Line 1 10 10 Oral 450 Hemodialysis 400 Output: Urine 110 100 Hemodialysis 1900 Other: Voiding Method Indwelling Catheter Indwelling Catheter Indwelling Catheter # Voids 0 - Exam GENERAL DESCRIPTION: A middle-age male up in bed in no distress RESPIRATORY SYSTEM: Unlabored breathing , clear to auscultation anteriorly HEART: S1 S2 regular rate and rhythm , ABDOMEN: Soft , no tenderness EXTREMITIES: Right heel wound is currently dressed no drainage - Labs CBC & Chem 7: 06/24/23 04:13 06/24/23 04:13 Labs: Abnormal Lab Results - Last 24 Hours (Table) 06/23/23 06/23/23 06/23/23 Range/Units 16:45 17:19 17:38 WBC (4.50-10.00) X 10*3/uL Hgb (13.0-17.0) g/dL Hct (39.6-50.0) % MCHC (32.0-37.0) g/dL RDW (11.5-14.5) % Neutrophils # (1.80-7.70) X 10*3/uL Monocytes # (0.20-1.00) X 10*3/uL Basophils # (0.00-0.10) X 10*3/uL NRBC/100 WBC Diff (0.00-0.01) X 10*3/uL Carbon Dioxide (21.6-31.8) mmol/L Anion Gap (4.00-12.00) mmol/L BUN (9.0-27.0) mg/dL Creatinine (0.6-1.5) mg/dL Est GFR (CKD-EPI) (>=60) POC Glucose (mg/dL) 63 L 56 L 123 H (70-110) mg/dL Total Bilirubin (0.3-1.2) mg/dL AST (14-35) U/L ALT (10-49) U/L Alkaline Phosphatase (41-126) U/L Albumin (3.8-4.9) g/dL Globulin (1.6-3.3) g/dL Albumin/Globulin Ratio (1.60-3.17) Ratio 06/23/23 06/24/23 06/24/23 Range/Units 20:55 04:13 04:13 WBC 12.40 H (4.50-10.00) X 10*3/uL Hgb 12.3 L (13.0-17.0) g/dL Hct 38.6 L (39.6-50.0) % MCHC 31.9 L (32.0-37.0) g/dL RDW 18.4 H (11.5-14.5) % Neutrophils # 8.73 H (1.80-7.70) X 10*3/uL Monocytes # 1.75 H (0.20-1.00) X 10*3/uL Basophils # 0.16 H (0.00-0.10) X 10*3/uL NRBC/100 WBC Diff 0.02 H (0.00-0.01) X 10*3/uL Carbon Dioxide 19.7 L (21.6-31.8) mmol/L Anion Gap 19.30 H (4.00-12.00) mmol/L BUN 62.3 H (9.0-27.0) mg/dL Creatinine 4.8 H (0.6-1.5) mg/dL Est GFR (CKD-EPI) 14 L (>=60) POC Glucose (mg/dL) 160 H (70-110) mg/dL Total Bilirubin 1.7 H (0.3-1.2) mg/dL AST 205 H (14-35) U/L ALT 353 H (10-49) U/L Alkaline Phosphatase 345 H (41-126) U/L Albumin 3.5 L (3.8-4.9) g/dL Globulin 3.6 H (1.6-3.3) g/dL Albumin/Globulin Ratio 0.97 L (1.60-3.17) Ratio 06/24/23 06/24/23 Range/Units 06:11 11:35 WBC (4.50-10.00) X 10*3/uL Hgb (13.0-17.0) g/dL Hct (39.6-50.0) % MCHC (32.0-37.0) g/dL RDW (11.5-14.5) % Neutrophils # (1.80-7.70) X 10*3/uL Monocytes # (0.20-1.00) X 10*3/uL Basophils # (0.00-0.10) X 10*3/uL NRBC/100 WBC Diff (0.00-0.01) X 10*3/uL Carbon Dioxide (21.6-31.8) mmol/L Anion Gap (4.00-12.00) mmol/L BUN (9.0-27.0) mg/dL Creatinine (0.6-1.5) mg/dL Est GFR (CKD-EPI) (>=60) POC Glucose (mg/dL) 177 H 129 H (70-110) mg/dL Total Bilirubin (0.3-1.2) mg/dL AST (14-35) U/L ALT (10-49) U/L Alkaline Phosphatase (41-126) U/L Albumin (3.8-4.9) g/dL Globulin (1.6-3.3) g/dL Albumin/Globulin Ratio (1.60-3.17) Ratio Assessment and Plan (1) Wound of foot Current Visit: Yes Status: Acute Code(s): S91.309A - UNSPECIFIED OPEN WOUND, UNSPECIFIED FOOT, INITIAL ENCOUNTER SNOMED Code(s): 859477794 (2) Foot osteomyelitis, right Current Visit: No Status: Acute Code(s): M86.9 - OSTEOMYELITIS, UNSPECIFIED SNOMED Code(s): 8848220290522976 Plan: 1patient with the right heel diabetic foot infection with underlying osteomyelitis in this patient cultures were predominantly positive for gram- negative including Proteus Providencia Streptococcus and anaerobes , Culture done this admission has been positive for MRSA 2patient did have worsening of his kidney function vascular surgery as placed dialysis catheter and the patient started on dialysis 3patient continue patient on Zosyn and daptomycin waiting for improvement in mentation and possible amputation vascular surgery following the patient Dictation was produced using [employer] dictation software. please excuse any grammatical, word or spelling errors. Time with Patient: Less than 30
--- NOTE | 2023-06-24 12:51 | P.PN ---
Subjective Progress Note Date: 06/24/23 Patient seen and examined as a follow-up. His sitting up at the bedside currently having breakfast. On patient seems somewhat confused. He is alert and oriented to person and place however not oriented to time. Patient is scheduled to get hemodialysis today. When asked about proceeding with the below the knee amputation patient states he needs more time to think about it. Currently his ex-spouse is listed in his emergency contact, he also has a son he states he currently takes Coumadin which he lived with at one time. Objective - Vital Signs Vital signs: Vital Signs Temp 98.2 F 06/24/23 07:09 Pulse 84 06/24/23 07:50 Resp 20 06/24/23 07:09 BP 107/71 06/24/23 07:09 Pulse Ox 95 06/24/23 07:36 FiO2 Intake & Output 06/23/23 06/24/23 06/24/23 18:59 06:59 18:59 Intake Total 850 10 Output Total 2009 100 Balance -1160 -90 Weight 104.5 kg Intake: IV 10 Invasive Line 1 10 Oral 450 Hemodialysis 400 Output: Urine 110 100 Hemodialysis 1900 Other: Voiding Method Indwelling Catheter Indwelling Catheter # Voids 0 - Exam General appearance: The patient is alert, oriented to self and place only, appears in no acute distress. HET: Head is normocephalic and atraumatic. Neck: Supple. Heart: Regular. Lungs: Equal expansion, normal respiratory effort. Abdomen: Soft, nondistended. Extremities: Bilateral lower extremities with dressings clean dry and intact. Neurological: Patient confused, alert and oriented to self and place only. - Labs CBC & Chem 7: 06/24/23 04:13 06/24/23 04:13 Labs: Abnormal Lab Results - Last 24 Hours (Table) 06/23/23 06/23/23 06/23/23 Range/Units 16:45 17:19 17:38 WBC (4.50-10.00) X 10*3/uL Hgb (13.0-17.0) g/dL Hct (39.6-50.0) % MCHC (32.0-37.0) g/dL RDW (11.5-14.5) % Neutrophils # (1.80-7.70) X 10*3/uL Monocytes # (0.20-1.00) X 10*3/uL Basophils # (0.00-0.10) X 10*3/uL NRBC/100 WBC Diff (0.00-0.01) X 10*3/uL Carbon Dioxide (21.6-31.8) mmol/L Anion Gap (4.00-12.00) mmol/L BUN (9.0-27.0) mg/dL Creatinine (0.6-1.5) mg/dL Est GFR (CKD-EPI) (>=60) POC Glucose (mg/dL) 63 L 56 L 123 H (70-110) mg/dL Total Bilirubin (0.3-1.2) mg/dL AST (14-35) U/L ALT (10-49) U/L Alkaline Phosphatase (41-126) U/L Albumin (3.8-4.9) g/dL Globulin (1.6-3.3) g/dL Albumin/Globulin Ratio (1.60-3.17) Ratio 06/23/23 06/24/23 06/24/23 Range/Units 20:55 04:13 04:13 WBC 12.40 H (4.50-10.00) X 10*3/uL Hgb 12.3 L (13.0-17.0) g/dL Hct 38.6 L (39.6-50.0) % MCHC 31.9 L (32.0-37.0) g/dL RDW 18.4 H (11.5-14.5) % Neutrophils # 8.73 H (1.80-7.70) X 10*3/uL Monocytes # 1.75 H (0.20-1.00) X 10*3/uL Basophils # 0.16 H (0.00-0.10) X 10*3/uL NRBC/100 WBC Diff 0.02 H (0.00-0.01) X 10*3/uL Carbon Dioxide 19.7 L (21.6-31.8) mmol/L Anion Gap 19.30 H (4.00-12.00) mmol/L BUN 62.3 H (9.0-27.0) mg/dL Creatinine 4.8 H (0.6-1.5) mg/dL Est GFR (CKD-EPI) 14 L (>=60) POC Glucose (mg/dL) 160 H (70-110) mg/dL Total Bilirubin 1.7 H (0.3-1.2) mg/dL AST 205 H (14-35) U/L ALT 353 H (10-49) U/L Alkaline Phosphatase 345 H (41-126) U/L Albumin 3.5 L (3.8-4.9) g/dL Globulin 3.6 H (1.6-3.3) g/dL Albumin/Globulin Ratio 0.97 L (1.60-3.17) Ratio 06/24/ Range/Units 06:11 WBC (4.50-10.00) X 10*3/uL Hgb (13.0-17.0) g/dL Hct (39.6-50.0) % MCHC (32.0-37.0) g/dL RDW (11.5-14.5) % Neutrophils # (1.80-7.70) X 10*3/uL Monocytes # (0.20-1.00) X 10*3/uL Basophils # (0.00-0.10) X 10*3/uL NRBC/100 WBC Diff (0.00-0.01) X 10*3/uL Carbon Dioxide (21.6-31.8) mmol/L Anion Gap (4.00-12.00) mmol/L BUN (9.0-27.0) mg/dL Creatinine (0.6-1.5) mg/dL Est GFR (CKD-EPI) (>=60) POC Glucose (mg/dL) 177 H (70-110) mg/dL Total Bilirubin (0.3-1.2) mg/dL AST (14-35) U/L ALT (10-49) U/L Alkaline Phosphatase (41-126) U/L Albumin (3.8-4.9) g/dL Globulin (1.6-3.3) g/dL Albumin/Globulin Ratio (1.60-3.17) Ratio Assessment and Plan Assessment: 1. Right lower extremity wound infection, likely osteomyelitis 2. Nonhealing right lower extremity wound, 3. Diabetes 4. Congestive heart failure 5. COPD Plan: Patient remains confused. When discussing below the knee amputation patient states he needs more time to think about it. When discussed with patient regarding who he would like to help make his medical decisions he states that he is unsure and needs to talk to his son. Will consult to case management for power of criminal attorney and medical decision-making to move forward with possible amputation. The impression and plan of care has been dictated as directed. Dr. Munoz I performed a history and examination of this patient, discussed the same with the dictator. I agree with the dictator's note ,documented as a scribe. Any additional findings or plans will be noted.
--- NOTE | 2023-06-24 13:39 | P.PN ---
Subjective Progress Note Date: 06/24/23 Patient is admitted for chronic right heel wound with osteomyelitis; continues on IV zosyn for a total of 6 weeks of antibiotic therapy. He continues to have lower extremity edema and remains on IV lasix daily and being followed closely by nephrology. Patient has been offered amputation in the past and has refused. Now he is will to undergo the amputation, Dr. Kaur following. There is concern for diminished/absent femoral pulse on the right leg. Scheduled for arterial ultrasound today. Labs today reveal white count 10.9, hemoglobin 11.8, sodium 136, potassium 4.7, BUN 56, creatinine 2.01. 06/19/2023 Patient evaluated today continues with lower extremity edema. Underwent arterial ultrasound with normal ankle brachial indices. Pending vascular decision regarding amputation. 06/20/2023 Patient evaluated today. Lasix has been increased to BID due to the lower extremity edema. Creatinine is now up to 3.06 and potassium 6.1 today. Continues on IV zosyn and IV daptyomcyin. Patient had a fall today while getting up from the chair and has had increased confusion. He did fall and hit his head with a laceration on eyebrow. 06/21. Patient seen and examined. Patient is very compliant with treatment plan. Patient is alert and oriented to self and place and situation but gets confused about time. Patient mental status waxes and wanes. Later in the day patient became more confused. Lab work done this morning showed sodium 136 potassium 6 BUN 86, creatinine 4.4. Patient has been refusing surgery, vascular surgery discussed with patient, patient not agreeable at this time 06/22. Patient seen and examined. Mental status waxes and wanes. Psych hss been consulted. Currently patient is only alert to self, shaking at times, gets Confused about surroundings. Currently patient darlene no capacity 06/23. Patient seen and examined. Nephrology had discussed with patient's who is legally to the patient, she gave consent for initiation of dialysis. Patient underwent first cycle yesterday. Currently patient is alert and oriented to self and place and situation, mental status waxes and wanes 06/24. Patient seen and examined. Patient is lethargic but able to tell me the name off self and place. No longer agitated. Patient is supposed to get another cycle of dialysis today REVIEW OF SYSTEMS: CONSTITUTIONAL: No fever, no malaise,. CARDIOVASCULAR: No chest pain, no palpitations, no syncope. PULMONARY: No shortness of breath, no cough, GASTROINTESTINAL: No diarrhea, no nausea, no vomiting, no abdominal pain. NEUROLOGICAL: No headaches, no weakness, PHYSICAL EXAMINATION: GENERAL: The patient is alert and oriented x self and place, not in any acute distress. Well developed, well nourished. HEENT: Pupils are round and equally reacting to light. EOMI. No scleral icterus. No conjunctival pallor. Normocephalic, atraumatic. No pharyngeal erythema. No thyromegaly. CARDIOVASCULAR: S1 and S2 present. No murmurs, rubs, or gallops. PULMONARY: Chest is clear to auscultation, no wheezing or crackles. ABDOMEN: Soft, nontender, nondistended, normoactive bowel sounds. No palpable organomegaly. MUSCULOSKELETAL: No joint swelling or deformity. EXTREMITIES: Dressing intact to right foot. +1 pitting edema and erythema to the right leg. NEUROLOGICAL: Gross neurological examination did not reveal any focal deficits. SKIN: No rashes. Assessment and plan -Acute on chronic congestive heart failure nonischemic cardiomyopathy/systolic dysfunction EF less than 20% on IV lasix -Acute on chronic recurrent right lower leg cellulitis -infected right heel diabetic ulcer with prior history of debridement. Culture showing MRSA. Nonhealing. Patient now agreeable to amputation. Vascular following -Lower extremity chronic venous insufficiency -Hx of COPD -Diabetes mellitus type 2 chronically on insulin, uncontrolled with hypoglycemia -Hyperlipidemia -Chronic kidney disease stage III from diabetic nephropathy and nephrosclerosis -Acute kidney injury likely ATN from cardiorenal syndrome, worsening renal function -Altered mental status due to acute metabolic encephalopathy from ANGY -Hyperkalemia from the ANGY -moderate to severe MR/moderate TR and severe pulmonary hypertension -Hyponatremia on fluid restriction -Chronic low back pain. -Essential hypertension -Obstructive sleep apnea sometimes uses CPAP machine -Diabetic peripheral neuropathy -Anxiety -DJD -AICD -Lower extremity chronic venous insufficiency Monitor vital signs Monitor CBC Monitor CMP Continue telemetry monitoring Encourage use of incentive spirometer Monitor electrolytes Continue dialysis per nephrology Continue IV Zosyn and daptomycin Vascular surgery following Nephrology also following Monitor blood sugar levels, continue current insulin regimen Psychiatry recommends Discontinue Xanax and Ambien. Continue Cymbalta as prescribed. Change maria c onin to 5 mg scheduled for sleep. Zyprexa IM and by mouth when necessary for agitation. Prolixin 2 mg twice a day for delirium/psychosis. Labs and medication were reviewed.. Continue same treatment. Continue with symptomatic treatment. Resume home medication. Monitor labs and vitals. DVT and GI prophylaxis. Further recommendations as per clinical course of the patient Dictation was produced using [employer] dictation software. please excuse any grammatical, word or spelling errors. Objective - Vital Signs Vital signs: Vital Signs Temp 98.2 F 06/24/23 07:09 Pulse 84 06/24/23 07:50 Resp 20 06/24/23 07:09 BP 107/71 06/24/23 07:09 Pulse Ox 95 06/24/23 07:36 FiO2 Intake & Output 06/23/23 06/24/23 06/24/23 18:59 06:59 18:59 Intake Total 850 10 Output Total 2009 100 Balance -1160 -90 Weight 104.5 kg Intake: IV 10 Invasive Line 1 10 Oral 450 Hemodialysis 400 Output: Urine 110 100 Hemodialysis 1900 Other: Voiding Method Indwelling Catheter Indwelling Catheter # Voids 0 - Labs CBC & Chem 7: 06/24/23 04:13 06/24/23 04:13 Labs: Abnormal Lab Results - Last 24 Hours (Table) 06/23/23 06/23/23 06/23/23 Range/Units 16:45 17:19 17:38 WBC (4.50-10.00) X 10*3/uL Hgb (13.0-17.0) g/dL Hct (39.6-50.0) % MCHC (32.0-37.0) g/dL RDW (11.5-14.5) % Neutrophils # (1.80-7.70) X 10*3/uL Monocytes # (0.20-1.00) X 10*3/uL Basophils # (0.00-0.10) X 10*3/uL NRBC/100 WBC Diff (0.00-0.01) X 10*3/uL Carbon Dioxide (21.6-31.8) mmol/L Anion Gap (4.00-12.00) mmol/L BUN (9.0-27.0) mg/dL Creatinine (0.6-1.5) mg/dL Est GFR (CKD-EPI) (>=60) POC Glucose (mg/dL) 63 L 56 L 123 H (70-110) mg/dL Total Bilirubin (0.3-1.2) mg/dL AST (14-35) U/L ALT (10-49) U/L Alkaline Phosphatase (41-126) U/L Albumin (3.8-4.9) g/dL Globulin (1.6-3.3) g/dL Albumin/Globulin Ratio (1.60-3.17) Ratio 06/23/23 06/24/23 06/24/23 Range/Units 20:55 04:13 04:13 WBC 12.40 H (4.50-10.00) X 10*3/uL Hgb 12.3 L (13.0-17.0) g/dL Hct 38.6 L (39.6-50.0) % MCHC 31.9 L (32.0-37.0) g/dL RDW 18.4 H (11.5-14.5) % Neutrophils # 8.73 H (1.80-7.70) X 10*3/uL Monocytes # 1.75 H (0.20-1.00) X 10*3/uL Basophils # 0.16 H (0.00-0.10) X 10*3/uL NRBC/100 WBC Diff 0.02 H (0.00-0.01) X 10*3/uL Carbon Dioxide 19.7 L (21.6-31.8) mmol/L Anion Gap 19.30 H (4.00-12.00) mmol/L BUN 62.3 H (9.0-27.0) mg/dL Creatinine 4.8 H (0.6-1.5) mg/dL Est GFR (CKD-EPI) 14 L (>=60) POC Glucose (mg/dL) 160 H (70-110) mg/dL Total Bilirubin 1.7 H (0.3-1.2) mg/dL AST 205 H (14-35) U/L ALT 353 H (10-49) U/L Alkaline Phosphatase 345 H (41-126) U/L Albumin 3.5 L (3.8-4.9) g/dL Globulin 3.6 H (1.6-3.3) g/dL Albumin/Globulin Ratio 0.97 L (1.60-3.17) Ratio 06/24/23 Range/Units 06:11 WBC (4.50-10.00) X 10*3/uL Hgb (13.0-17.0) g/dL Hct (39.6-50.0) % MCHC (32.0-37.0) g/dL RDW (11.5-14.5) % Neutrophils # (1.80-7.70) X 10*3/uL Monocytes # (0.20-1.00) X 10*3/uL Basophils # (0.00-0.10) X 10*3/uL NRBC/100 WBC Diff (0.00-0.01) X 10*3/uL Carbon Dioxide (21.6-31.8) mmol/L Anion Gap (4.00-12.00) mmol/L BUN (9.0-27.0) mg/dL Creatinine (0.6-1.5) mg/dL Est GFR (CKD-EPI) (>=60) POC Glucose (mg/dL) 177 H (70-110) mg/dL Total Bilirubin (0.3-1.2) mg/dL AST (14-35) U/L ALT (10-49) U/L Alkaline Phosphatase (41-126) U/L Albumin (3.8-4.9) g/dL Globulin (1.6-3.3) g/dL Albumin/Globulin Ratio (1.60-3.17) Ratio
--- NOTE | 2023-06-24 13:46 | P.PN ---
Progress Note - Text Progress Note Date: 06/24/23 Interval history: Patient was seen today for psychiatric follow-up regarding patient's delirium. Patient is currently taking Cymbalta, melatonin and Prolixin for delirium and mental health disorder. Patient's nurse stated that patient continues to be fairly lethargic however not as restless and has been taking his medications. Patient was seen lying in bed sleeping while he was being dialyzed today. Patient was awoken briefly by continuity writer however had his eyes closed through most of the interview. He tended to cooperate however was fairly lethargic. He denied any auditory or visual hallucinations. Denied any suicidal or homicidal ideations intent or plan. Denies any changes in his mood and anxiety. He had fairly poor insight as to why he is in the hospital. He knew that he was in [facility]. He knew today's year however did not know the specific date. He knew his full name. Attention span is mildly improving. Mental status examination: General Appearance: Patient appears to be have long hair, tattooed sleeves, stated age is lethargic, poor attention span, and providing mildly, poor eye contact Behavior: Patient is calmly lying in bed without any agitated behavior. Confused and lethargic Speech: Patient's speech is fluent and nonpressured. Soft tone Mood/Affect: Patient denies any changes in his mood, affect is constricted Suicidality/Homicidality: Patient denies having any suicidal or homicidal ideation intent or plan. Perceptions: Patient denies any visual hallucinations and denies any auditory hallucinations Though content/process: [place], poverty of content. Memory and concentration: AOX2, he knows today's year however does not know the exact date, attention span is still poor however improving. Judgment and insight: poor IMPRESSIONS: Delirium likely toxic metabolic etiology PLAN: -At this time patient DOES NOT meet criteria for inpatient psychiatric admission. -Delirium precautions recommended with patient including - avoiding use of narcotics and CCU NURSE sedatives, limit anticholinergic medications when possible, frequent re-orientation, minimize use of restraints, open window shades during the day and close them at night -Would recommend the following medication changes/additions: Please avoid benzodiazepines as this will increase patient's confusion. Continue Cymbalta as prescribed. Change melatonin to 5 mg scheduled for sleep. Zyprexa IM and by mouth when necessary for agitation. change/decrease Prolixin 3 mg twice a day for delirium/psychosis. -Communicated plan to patient's nurse -Will continue to follow along as needed -Please contact with any questions.
[2023-06-24 16:19] LABS: Glucose,Whole Blood 94 mg/dL (70-110)
[2023-06-24 20:48] LABS: Glucose,Whole Blood 173 mg/dL (70-110)
[2023-06-24] MEDS: MELATONIN 5 MG TABLET PO SCH (22:28)
[2023-06-25 05:51] LABS: Glucose,Whole Blood 136 mg/dL (70-110)
[2023-06-25] MEDS: INSULIN ASPART (NovoLOG) 100 UNIT/ML VIAL SQ SCH ×4 (06:18→22:10)
[2023-06-25] MEDS: MIDODRINE 5 MG TAB PO SCH ×3 (06:54→16:31)
[2023-06-25] MEDS: ACETAMINOPHEN TAB 325 MG TAB PO PRN (06:54)
[2023-06-25] MEDS: INSULIN DETEMIR (LEVEMIR) 100 UNIT/ML SYR SQ SCH (07:49)
[2023-06-25] MEDS: METOPROLOL SUCCINATE (ER) 25 MG TAB.ER.24H PO SCH (07:49)
[2023-06-25] MEDS: LIDOCAINE 5% PATCH TOPICAL SCH (07:54)
[2023-06-25] MEDS: SODIUM BICARBONATE TAB 650 MG TAB PO SCH ×2 (07:55→22:11)
[2023-06-25] MEDS: HEPARIN SODIUM,PORCINE 5,000 UNIT/ML 1 ML VIAL SQ SCH ×3 (07:55→23:09)
[2023-06-25] MEDS: NICOTINE 14MG/24HR PATCH TRANSDERM SCH (07:55)
[2023-06-25] MEDS: OLANZapine 5 MG TAB PO PRN (07:55)
[2023-06-25] MEDS: ASPIRIN 81 MG PO SCH (07:55)
[2023-06-25] MEDS: FAMOTIDINE 20 MG TAB PO SCH (07:55)
[2023-06-25] MEDS: PIPERACILLIN-TAZOBACTAM 3.375 GM in SODIUM CHLORIDE 0.9% 100 ML IVPB SCH ×2 (07:56→22:12)
[2023-06-25] MEDS: IPRATROPIUM-ALBUTEROL 3 ML NEB INHALATION SCH ×4 (08:05→21:04)
--- NOTE | 2023-06-25 09:21 | IR ---
EXAMINATION TYPE: IR cvc insert non tunneled DATE OF EXAM: 06/22/2023 COMPARISON: NONE HISTORY: Fluoroscopy time. Fluoroscopy was provided to the referring clinician.
--- NOTE | 2023-06-25 10:51 | P.PN ---
Subjective Patient is seen in follow-up for acute kidney injury on chronic kidney disease. Started on hemodialysis 06/22/2023. Has femoral catheter. Resting in bed. Poor historian. Tolerating dialysis well. Vital signs are stable. General: No acute distress. HEENT: Head exam is unremarkable. LUNGS: No audible rhonchi or wheezes. HEART: Rate and Rhythm are regular. ABDOMEN: Nontender. EXTREMITITES: 1+ edema. Wounds noted. Objective - Vital Signs Vital signs: Vital Signs Temp 98.3 F 06/25/23 07:44 Pulse 100 06/25/23 08:14 Resp 20 06/25/23 07:44 BP 103/72 06/25/23 07:44 Pulse Ox 96 06/25/23 07:44 FiO2 Intake & Output 06/24/23 06/25/23 06/25/23 18:59 06:59 18:59 Intake Total 410 1020 Output Total 2500 325 Balance -2089 695 Weight 101.5 kg Intake: IV 10 Invasive Line 1 10 Oral 1020 Hemodialysis 400 Output: Urine 325 Hemodialysis 2500 Other: Voiding Method Indwelling Catheter Indwelling Catheter Indwelling Catheter - Labs CBC & Chem 7: 06/24/23 04:13 06/24/23 04:13 Labs: Abnormal Lab Results - Last 24 Hours (Table) 06/24/23 06/24/23 06/25/23 Range/Units 11:35 20:46 05:50 POC Glucose (mg/dL) 129 H 173 H 136 H (70-110) mg/dL Assessment and Plan Plan: Assessment: 1. Acute kidney injury secondary to ATN secondary to cardiorenal syndrome. Creatinine 1.7-2.3 from last admission. No hydronephrosis noted on ultrasound on 05/16/2023. Trace protein on UA. Renal function worsened this admission with creatinine up to 6.46 dated 06/22/2023. Also low urine output. Started on hemodialysis 06/22/2023. Has left femoral catheter. 2. Chronic kidney disease stage IIIa secondary to diabetic kidney disease and cardiorenal syndrome. Creatinine 1.4 dated 06/03/2023 but from last admission. 3. Volume overload. Improving with ultrafiltration. 4. Acute on chronic systolic CHF with ejection fraction of less than 20% with moderate to severe mitral regurgitation, moderate tricuspid regurgitation and severe pulmonary hypertension. 5. Diabetes mellitus. 6. Metabolic acidosis secondary to acute kidney injury. On oral bicarb. Improving. Plan: Currently seen while undergoing hemodialysis. Another treatment tomorrow. Monitor for renal recovery. Avoid nephrotoxins. Maintain midodrine. Check phosphorus level.
[2023-06-25 11:21] LABS: Glucose,Whole Blood 146 mg/dL (70-110)
--- NOTE | 2023-06-25 11:57 | P.PN ---
Subjective Progress Note Date: 06/25/23 She was seen and examined today as a follow-up. It was determined yesterday by case management that patient is still to his Best Haynes who is listed as next of kin to make medical decisions for the patient. No acute changes through the night. Patient is still somewhat confused. He is alert and oriented to self and place. He has been afebrile. Objective - Vital Signs Vital signs: Vital Signs Temp 98.3 F 06/25/23 07:44 Pulse 100 06/25/23 08:14 Resp 20 06/25/23 07:44 BP 103/72 06/25/23 07:44 Pulse Ox 96 06/25/23 07:44 FiO2 Intake & Output 06/24/23 06/25/23 06/25/23 18:59 06:59 18:59 Intake Total 410 1020 Output Total 2500 325 Balance -2089 695 Weight 101.5 kg Intake: IV 10 Invasive Line 1 10 Oral 1020 Hemodialysis 400 Output: Urine 325 Hemodialysis 2500 Other: Voiding Method Indwelling Catheter Indwelling Catheter Indwelling Catheter - Exam General appearance: The patient is alert, oriented to self and place only, appears in no acute distress. HET: Head is normocephalic and atraumatic. Neck: Supple. Heart: Regular. Lungs: Equal expansion, normal respiratory effort. Abdomen: Soft, nondistended. Extremities: Bilateral lower extremities with dressings clean dry and intact. Right heel with wound to the bone. Neurological: Patient confused, alert and oriented to self and place only. - Labs CBC & Chem 7: 06/24/23 04:13 06/24/23 04:13 Labs: Abnormal Lab Results - Last 24 Hours (Table) 06/24/23 06/25/23 06/25/23 Range/Units 20:46 05:50 11:20 POC Glucose (mg/dL) 173 H 136 H 146 H (70-110) mg/dL Assessment and Plan Assessment: 1. Right lower extremity wound infection, likely osteomyelitis 2. Nonhealing right lower extremity wound, 3. Diabetes 4. Congestive heart failure 5. COPD Plan: Patient remains confused. Discussed with case management that patient is still to Gertrude Vivas who is listed as his next of kin and person to notify at [phone]. Best Haynes was called at the number above and message was left to call back. Need to discuss moving forward with right [id number] amputation and will need to obtain consent. Will make patient NPO after idnight for possible right below the knee amputation tomorrow. 1341: Spoke to patient's Gertrude Haynes over the phone regarding recommendation for right [id number] amputation due to nonhealing wound to the bone with osteomyelitis and concerns for sepsis and even including . Patient's states that she is unsure if she wants to give consent for right below the knee amputation and would like to further discuss with patient his wishes as well. As of now surgery will be canceled and we will reevaluate on a daily basis. Also discussed this with patient's nurse Karen and recommended her to follow-up on DO NOT RESUSCITATE as patient's states patient's wishes are to be a DO NOT RESUSCITATE and there should be paperwork filed. However I did also discuss with patient's Best Haynes that if patient is to undergo surgery he will have to be a full code during surgery and recovery. She dianna balizes understanding. The impression and plan of care has been dictated as directed. Dr. Munoz I performed a history and examination of this patient, discussed the same with the dictator. I agree with the dictator's note ,documented as a scribe. Any additional findings or plans will be noted.
--- NOTE | 2023-06-25 16:11 | P.PN ---
Subjective Progress Note Date: 06/25/23 Principal diagnosis: Reason for follow-up is right heel diabetic foot infection and osteomyelitis Patient is a 53-year-old male with a past medical history significant for diabetes mellitus hyperlipidemia hypertension PA history of diabetic foot infection with a chronic nonhealing wound to the right heel area and underlying osteomyelitis with a previous culture positive for Proteus Acinetobacter providencia and anaerobes, presented to hospital with chest pain shortness of breath and some mental status changes, patient did have worsening of his kidney function requiring dialysis catheter placement and has been started on dialysis On today's evaluation that is 06/25/2023, the patient denies any fever or any chills, the patient is is more awake and alert today, patient is breathing comfortably on room air without the need for supplemental oxygen, patient denies chest pain shortness of breath, the patient denies cough or sputum production, patient denies Abdominal pain, no nausea/vomiting or diarrhea The patient white count is 12.40 and creatinine is 4.8 as of 06/24/2023 Objective - Vital Signs Vital signs: Vital Signs Temp 98.3 F 06/25/23 13:27 Pulse 100 06/25/23 15:38 Resp 20 06/25/23 13:27 BP 124/77 06/25/23 13:27 Pulse Ox 95 06/25/23 13:27 FiO2 Intake & Output 06/24/23 06/25/23 06/25/23 18:59 06:59 18:59 Intake Total 410 1020 400 Output Total 2500 325 2800 Balance -2090 695 -2400 Weight 101.5 kg Intake: IV 10 Invasive Line 1 10 Oral 1020 Hemodialysis 400 400 Output: Urine 325 200 Hemodialysis 2500 2600 Other: Voiding Method Indwelling Catheter Indwelling Catheter Indwelling Catheter - Exam GENERAL DESCRIPTION: A middle-age male up in bed in no distress RESPIRATORY SYSTEM: Unlabored breathing , clear to auscultation anteriorly HEART: S1 S2 regular rate and rhythm , ABDOMEN: Soft , no tenderness EXTREMITIES: Right heel wound is currently dressed no drainage - Labs CBC & Chem 7: 06/24/23 04:13 06/24/23 04:13 Labs: Abnormal Lab Results - Last 24 Hours (Table) 06/24/23 06/25/23 06/25/23 Range/Units 20:46 05:50 11:20 POC Glucose (mg/dL) 173 H 136 H 146 H (70-110) mg/dL Assessment and Plan (1) Wound of foot Current Visit: Yes Status: Acute Code(s): S91.309A - UNSPECIFIED OPEN WOUND, UNSPECIFIED FOOT, INITIAL ENCOUNTER SNOMED Code(s): 611336952 (2) Foot osteomyelitis, right Current Visit: No Status: Acute Code(s): M86.9 - OSTEOMYELITIS, UNSPECIFIED SNOMED Code(s): 6542441892109717 Plan: 1patient with the right heel diabetic foot infection with underlying osteomyelitis in this patient cultures were predominantly positive for gram- negative including Proteus Providencia Streptococcus and anaerobes , Culture done this admission has been positive for MRSA 2patient did have worsening of his kidney function vascular surgery as placed dialysis catheter and the patient started on dialysis 3patient currently being treated with Zosyn and daptomycin waiting for possible amputation vascular surgery following the patient Dictation was produced using [employer] dictation software. please excuse any grammatical, word or spelling errors. Time with Patient: Less than 30
[2023-06-25 16:28] LABS: Glucose,Whole Blood 200 mg/dL (70-110)
[2023-06-25] MEDS: HYDROcodone/APAP 5-325MG 1 EACH TAB PO PRN ×2 (16:31→22:11)
[2023-06-25 19:40] LABS: Glucose,Whole Blood 189 mg/dL (70-110)
--- NOTE | 2023-06-25 21:03 | P.PN ---
Subjective Progress Note Date: 06/25/23 Patient remains on the medical floor, monitored closely by multiple consultations. He remains in acute renal failure and has been started on hemodialysis, will undergo HD today. Nephrology following closely. His mentation is improved slightly today, he is requesting pain medication, states he is in severe pain. Narcotics were discontinued as patient did have to be narcaned prior. He remains on IV daptomycin and IV zosyn for positive wound cultures of the right foot wound which is showing MRSA. Additionally there is ivet. Blood culture is negative. Patient has agreed to surgical amputation however there was conflicting information as his spouse does not want the amputation. Patient has been agreeing to this amputation since last week. White count 12.40. Creatinine 4.8. Review of Systems Constitutional: Reports fatigue. denied any fever. Cardio vascular: denied any chest pain, palpitations Gastrointestinal: denied any nausea, vomiting, diarrhea Pulmonary: Denied any shortness of breath cough Neurologic denied any new focal deficits Reports weakness and pain. All inpatient medications were reviewed and appropriate changes in these medications as dictated in the interval history and assessment and plan. PHYSICAL EXAMINATION: GENERAL: The patient is alert and oriented x3, not in any acute distress. Well developed, well nourished. HEENT: Pupils are round and equally reacting to light. EOMI. No scleral icterus. No conjunctival pallor. Normocephalic, atraumatic. No pharyngeal erythema. No thyromegaly. CARDIOVASCULAR: S1 and S2 present. No murmurs, rubs, or gallops. PULMONARY: Diminished. ABDOMEN: Soft, nontender, nondistended, normoactive bowel sounds. No palpable organomegaly. MUSCULOSKELETAL: No joint swelling or deformity. EXTREMITIES: No cyanosis, clubbing, or pedal edema. +1 edema and erythema lower extremity. Has temporary dialysis catheter in place. NEUROLOGICAL: Gross neurological examination did not reveal any focal deficits. Weakness. SKIN: No rashes. Dressing intact to bilateral wounds. Erythema and swelling to the right lower extremity. Assessment -Acute on chronic congestive heart failure nonischemic cardiomyopathy/systolic dysfunction EF less than 20% -Acute on chronic recurrent right lower leg cellulitis -infected right heel diabetic ulcer with prior history of debridement. Culture showing MRSA. Nonhealing. Patient now agreeable to amputation. Vascular following -Acute kidney injury likely ATN from cardiorenal syndrome, worsening renal function patient has been started on hemodialysis -Transaminitis likely from hepatic congestion -Lower extremity chronic venous insufficiency -Hx of COPD -Diabetes mellitus type 2 chronically on insulin, uncontrolled with hypoglycemia -Hyperlipidemia -Chronic kidney disease stage III from diabetic nephropathy and nephrosclerosis -Altered mental status due to acute metabolic and toxic encephalopathy from ANGY, medication affect -Hyperkalemia from the ANGY -moderate to severe MR/moderate TR and severe pulmonary hypertension -Chronic low back pain. -Hypotension maintained on midodrine -Obstructive sleep apnea sometimes uses CPAP machine -Diabetic peripheral neuropathy -Anxiety -DJD -AICD -Lower extremity chronic venous insufficiency GI prophylaxis DVT prophylaxis Full Code Plan Continue on IV antibiotics, ID following. Local wound care to bilateral lower extremities to continue Patients did cancel the surgery, patient is agreeable to amputation, f/u tomorrow with family and care team Continues on hemodialysis plan to undergo HD today. Nephrology following closely Add norco for pain management, avoid narcotics if possible. Psychiatry following, cymbalta has been discontinued. Monitor liver function consider gallbladder [facility] has given surgical clearance for amputation Recommend AM labs The impression and plan of care has been dictated by Fozia Lopez, Nurse Practitioner as directed. Dr. Megan MD I have performed a history and physical examination and medical decision making of this patient, discussed the same with the dictator, and agree with the dictators assessment and plan as written, documented as a scribe. Based on total visit time, I have performed more than 50% of this visit. Objective - Vital Signs Vital signs: Vital Signs Temp 98.3 F 06/25/23 13:27 Pulse 100 06/25/23 15:38 Resp 20 06/25/23 13:27 BP 124/77 06/25/23 13:27 Pulse Ox 95 06/25/23 13:27 FiO2 Intake & Output 06/24/23 06/25/23 06/25/23 18:59 06:59 18:59 Intake Total 410 1020 400 Output Total 2500 325 2800 Balance -2089 695 -2400 Weight 101.5 kg Intake: IV 10 Invasive Line 1 10 Oral 1020 Hemodialysis 400 400 Output: Urine 325 200 Hemodialysis 2500 2600 Other: Voiding Method Indwelling Catheter Indwelling Catheter Indwelling Catheter - Labs CBC & Chem 7: 06/24/23 04:13 06/24/23 04:13 Labs: Abnormal Lab Results - Last 24 Hours (Table) 06/24/23 06/25/23 06/25/23 Range/Units 20:46 05:50 11:20 POC Glucose (mg/dL) 173 H 136 H 146 H (70-110) mg/dL Assessment and Plan Time with Patient: Less than 30
[2023-06-25] MEDS: MELATONIN 5 MG TABLET PO SCH (22:11)
[2023-06-26 06:48] LABS: Glucose,Whole Blood 158 mg/dL (70-110)
[2023-06-26] MEDS: INSULIN DETEMIR (LEVEMIR) 100 UNIT/ML SYR SQ SCH (06:56)
[2023-06-26] MEDS: INSULIN ASPART (NovoLOG) 100 UNIT/ML VIAL SQ SCH ×4 (06:56→21:44)
[2023-06-26] MEDS: HYDROcodone/APAP 5-325MG 1 EACH TAB PO PRN ×2 (06:57→13:00)
[2023-06-26] MEDS: MIDODRINE 5 MG TAB PO SCH ×3 (06:57→16:09)
[2023-06-26] MEDS: HEPARIN SODIUM,PORCINE 5,000 UNIT/ML 1 ML VIAL SQ SCH ×3 (08:15→22:45)
[2023-06-26] MEDS: ASPIRIN 81 MG PO SCH (08:15)
[2023-06-26] MEDS: SODIUM BICARBONATE TAB 650 MG TAB PO SCH ×2 (08:15→21:49)
[2023-06-26] MEDS: FAMOTIDINE 20 MG TAB PO SCH (08:15)
[2023-06-26] MEDS: METOPROLOL SUCCINATE (ER) 25 MG TAB.ER.24H PO SCH (08:15)
[2023-06-26] MEDS: PIPERACILLIN-TAZOBACTAM 3.375 GM in SODIUM CHLORIDE 0.9% 100 ML IVPB SCH ×2 (08:15→21:49)
[2023-06-26] MEDS: NICOTINE 14MG/24HR PATCH TRANSDERM SCH (08:15)
[2023-06-26 08:32] LABS: Magnesium 2.3 mg/dL (1.5-2.4); Phosphorus 3.5 mg/dL (2.4-5.1)
[2023-06-26 08:37] LABS: Calcium 8.7 mg/dL (8.7-10.3); Carbon Dioxide 22.8 mmol/L (21.6-31.8); Chloride 99 mmol/L (96-109); Glucose 182 mg/dL (70-110); Potassium 3.4 mmol/L (3.5-5.5); Sodium 136 mmol/L (135-145)
[2023-06-26] MEDS: IPRATROPIUM-ALBUTEROL 3 ML NEB INHALATION SCH ×4 (09:07→21:28)
[2023-06-26] MEDS: LIDOCAINE 5% PATCH TOPICAL SCH (09:11)
[2023-06-26] MEDS ORDERED: FUROSEMIDE 10 MG/ML 10 ML VIAL IV STA (10:51)
[2023-06-26] MEDS ORDERED: POTASSIUM CHLORIDE ER 20 MEQ TAB.ER PO STA (10:51)
--- NOTE | 2023-06-26 10:52 | P.PN ---
Subjective Patient is seen in follow-up for acute kidney injury on chronic kidney disease. Started on hemodialysis 06/22/2023. Has femoral catheter. Resting in bed. Tolerating dialysis well. Vital signs are stable. General: No acute distress. HEENT: Head exam is unremarkable. LUNGS: No audible rhonchi or wheezes. HEART: Rate and Rhythm are regular. ABDOMEN: Nontender. EXTREMITITES: 1+ edema. Wounds noted. Objective - Vital Signs Vital signs: Vital Signs Temp 97.4 F L 06/26/23 07:33 Pulse 102 H 06/26/23 07:33 Resp 18 06/26/23 07:33 BP 101/62 06/26/23 07:33 Pulse Ox 98 06/26/23 07:33 FiO2 Intake & Output 06/25/23 06/26/23 06/26/23 18:59 06:59 18:59 Intake Total 400 Output Total 2800 300 Balance -2400 -300 Weight 102 kg Intake: Hemodialysis 400 Output: Urine 200 300 Hemodialysis 2600 Other: Voiding Method Indwelling Catheter Indwelling Catheter Indwelling Catheter # Voids 0 - Labs CBC & Chem 7: 06/24/23 04:13 06/26/23 05:46 Labs: Abnormal Lab Results - Last 24 Hours (Table) 06/25/23 06/25/23 06/25/23 Range/Units 11:20 16:27 19:38 Potassium (3.5-5.5) mmol/L Anion Gap (4.00-12.00) mmol/L BUN (9.0-27.0) mg/dL Creatinine (0.6-1.5) mg/dL Est GFR (CKD-EPI) (>=60) BUN/Creatinine Ratio (12.00-20.00) Ratio Glucose (70-110) mg/dL POC Glucose (mg/dL) 146 H 200 H 189 H (70-110) mg/dL 06/26/23 06/26/23 Range/Units 05:46 06:46 Potassium 3.4 L (3.5-5.5) mmol/L Anion Gap 14.20 H (4.00-12.00) mmol/L BUN 28.0 H (9.0-27.0) mg/dL Creatinine 2.8 H (0.6-1.5) mg/dL Est GFR (CKD-EPI) 26 L (>=60) BUN/Creatinine Ratio 10.00 L (12.00-20.00) Ratio Glucose 182 H (70-110) mg/dL POC Glucose (mg/dL) 158 H (70-110) mg/dL Assessment and Plan Plan: Assessment: 1. Acute kidney injury secondary to ATN secondary to cardiorenal syndrome. Creatinine 1.7-2.3 from last admission. No hydronephrosis noted on ultrasound on 05/16/2023. Trace protein on UA. Renal function worsened this admission with creatinine up to 6.46 dated 06/22/2023. Also low urine output. Started on hemodialysis 06/22/2023. Has left femoral catheter. 2. Chronic kidney disease stage IIIa secondary to diabetic kidney disease and cardiorenal syndrome. Creatinine 1.4 dated 06/03/2023 but from last admission. 3. Volume overload. Improving with ultrafiltration. 4. Acute on chronic systolic CHF with ejection fraction of less than 20% with moderate to severe mitral regurgitation, moderate tricuspid regurgitation and severe pulmonary hypertension. 5. Diabetes mellitus. 6. Metabolic acidosis secondary to acute kidney injury. On oral bicarb. Improving. Plan: Currently seen while undergoing hemodialysis. Another treatment tomorrow. Continue to challenge ultrafiltration. Replace potassium. Monitor for renal recovery. Avoid nephrotoxins. Maintain midodrine. Phosphorus level 3.5 dated 06/26/2023. Lasix 80 mg IV once today.
[2023-06-26] MEDS: ACETAMINOPHEN TAB 325 MG TAB PO PRN (11:32)
[2023-06-26 11:57] LABS: Glucose,Whole Blood 113 mg/dL (70-110)
--- NOTE | 2023-06-26 14:45 | P.PN ---
Progress Note - Text Progress Note Date: 06/26/23 Interval history: Patient was seen today for psychiatric follow-up regarding patient's delirium and also for decision making capacity. Physician Support Coordinator was informed that vascular team was recommending below the knee amputation due to patient's chronic nonhealing wound. Physician Support Coordinator spoke with social work manager, nurse and also Dr Munoz about patients condition and current treatment and likely prognosis. Patient has been getting hemodialysis, he was more awake and watching television today. He was agreeable to speak to typewriter operator automatic. He was able to follow commands, answer questions appropriately. He believed that it was "June 2023" he knew his full name and his age, he knew his location. He is endorsing mild depression at this time mild anxiety. He was mildly confused during the interaction today. Patient was able to somewhat describe why he is in the hospital. He knew that we she was here because of a wound infection. He had to be prompted as to what the treatment was however was able to include antibiotics and also possible surgery. I spoke with him about likely prognosis, risks and benefits of surgery and patient states that he wanted to continue on with antibiotics and wound care and did not want to have surgery. He denied any auditory or visual hallucinations. Denied any suicidal or homicidal ideations intent or plan. Attention span is improving. Patient is denying any auditory or visual hallucinations. Denying any suicidal or homicidal ideations intent or plan. Patient is taking his medications. Mental status examination: General Appearance: Patient appears to be have long hair, tattooed sleeves, stated age is or alert, improved attention span. Improved eye contact Behavior: Patient is calmly lying in bed without any agitated behavior. Less confused and more awake. Speech: Patient's speech is fluent and nonpressured. Soft tone, living at times Mood/Affect: Patient denies any changes in his mood, affect is constricted, improving Suicidality/Homicidality: Patient denies having any suicidal or homicidal ideation intent or plan. Perceptions: Patient denies any visual hallucinations and denies any auditory hallucinations Though content/process: [place], poverty of content. Memory and concentration: AOX2, he knows today's year however does not know the exact date, attention span is improving. Able to follow commands. Judgment and insight: Improving however somewhat limited IMPRESSIONS: Delirium likely toxic metabolic etiology, resolving hx of depression and anxiety PLAN: -At this time patient DOES NOT meet criteria for inpatient psychiatric admission. -At this time patient DOES have capacity to refuse surgery and IS currently refusing amputation. He was able to be prompted and verbalize, comprehend the risks vs benefits of surgery vs other options for treatment of wound/infection. -Delirium precautions recommended with patient including - avoiding use of narcotics and COMPOUNDING TECHNICIAN sedatives, limit anticholinergic medications when possible, frequent re-orientation, minimize use of restraints, open window shades during the day and close them at night -Would recommend the following medication changes/additions: Please avoid benzodiazepines as this will increase patient's confusion. Restart Cymbalta 30 mg daily for mood/anxiety. I added trazodone 50 mg daily at bedtime when necessary for insomnia. Continue melatonin 5 mg scheduled for sleep. Zyprexa IM and by mouth when necessary for agitation. Continue Prolixin 3 mg twice a day for delirium/psychosis. -Communicated plan to patient's nurse -at this time psychiatry will sign off. -Please contact with any questions.
--- NOTE | 2023-06-26 15:46 | P.PN ---
Subjective Progress Note Date: 06/26/23 Patient was seen and examined today as follow-up for right nonhealing wound, osteomyelitis. Patient is alert and oriented 3 a he denies any acute changes. He is scheduled for hemodialysis today. Kidney function is improving. He's been afebrile. He was seen again today by psychiatry and Dr. Villaseñor's states that patient does have capacity to make medical decisions and patient is refusing amputation. Patient currently states that he is not sure that he would want to have amputation at this time. Objective - Vital Signs Vital signs: Vital Signs Temp 96.7 F L 06/26/23 15:04 Pulse 100 06/26/23 15:38 Resp 19 06/26/23 15:04 BP 82/55 06/26/23 15:04 Pulse Ox 91 L 06/26/23 15:04 FiO2 Intake & Output 06/25/23 06/26/23 06/26/23 18:59 06:59 18:59 Intake Total 400 400 Output Total 2800 300 2500 Balance -2400 -300 -2100 Weight 102 kg Intake: Hemodialysis 400 400 Output: Urine 200 300 Hemodialysis 2600 2500 Other: Voiding Method Indwelling Catheter Indwelling Catheter Indwelling Catheter # Voids 0 - Exam General appearance: The patient is alert, oriented to self and place only, appears in no acute distress. HET: Head is normocephalic and atraumatic. Neck: Supple. Heart: Regular. Lungs: Equal expansion, normal respiratory effort. Abdomen: Soft, nondistended. Extremities: Bilateral lower extremities with dressings clean dry and intact. Right heel with wound to the bone. Neurological: Patient confused, alert and oriented to self and place only. - Labs CBC & Chem 7: 06/24/23 04:13 06/26/23 05:46 Labs: Abnormal Lab Results - Last 24 Hours (Table) 06/25/23 06/25/23 06/26/23 Range/Units 16:27 19:38 05:46 Potassium 3.4 L (3.5-5.5) mmol/L Anion Gap 14.20 H (4.00-12.00) mmol/L BUN 28.0 H (9.0-27.0) mg/dL Creatinine 2.8 H (0.6-1.5) mg/dL Est GFR (CKD-EPI) 26 L (>=60) BUN/Creatinine Ratio 10.00 L (12.00-20.00) Ratio Glucose 182 H (70-110) mg/dL POC Glucose (mg/dL) 200 H 189 H (70-110) mg/dL 06/26/23 06/26/23 Range/Units 06:46 11:54 Potassium (3.5-5.5) mmol/L Anion Gap (4.00-12.00) mmol/L BUN (9.0-27.0) mg/dL Creatinine (0.6-1.5) mg/dL Est GFR (CKD-EPI) (>=60) BUN/Creatinine Ratio (12.00-20.00) Ratio Glucose (70-110) mg/dL POC Glucose (mg/dL) 158 H 113 H (70-110) mg/dL Assessment and Plan Assessment: 1. Right lower extremity wound infection, likely osteomyelitis 2. Nonhealing right lower extremity wound, 3. Diabetes 4. Congestive heart failure 5. COPD Plan: Psychiatry has seen patient and patient does have capacity to make medical decisions and is refusing amputation. Risks and benefits of surgery and not having surgery were discussed with patient, he verbalized understanding. There is no emergent need for amputation at this time and can continue antibiotics. Patient can follow-up with Dr. Kaur on discharge. Thank you for this consultation, we will sign off at this time. The impression and plan of care has been dictated as directed. Dr. Hidalgo I performed a history and examination of this patient, discussed the same with the dictator. I agree with the dictator's note ,documented as a scribe. Any additional findings or plans will be noted.
[2023-06-26] MEDS: DULoxetine HCL 30 MG CAPSULE.DR PO SCH (16:09)
[2023-06-26 17:10] LABS: Glucose,Whole Blood 84 mg/dL (70-110)
[2023-06-26 21:04] LABS: Glucose,Whole Blood 116 mg/dL (70-110)
--- NOTE | 2023-06-26 21:13 | P.PN ---
Subjective Progress Note Date: 06/26/23 Patient remains on the medical floor, monitored closely by multiple consultations. He remains in acute renal failure and has been started on hemodialysis, will undergo HD today. Nephrology following closely. His mentation is improved slightly today, he is requesting pain medication, states he is in severe pain. Narcotics were discontinued as patient did have to be narcaned prior. He remains on IV daptomycin and IV zosyn for positive wound cultures of the right foot wound which is showing MRSA. Additionally there is ivet. Blood culture is negative. Patient has agreed to surgical amputation however there was conflicting information as his spouse does not want the amputation. Patient has been agreeing to this amputation since last week. White count 12.40. Creatinine 4.8. 06/26/2023 Patient evaluated today during hemodialysis. He remains undecided about amputation. He states he wants it, knows he needs it than changes his mind. Patients additionally does not want the amputation. He was re-evaluated by psychiatry and deemed competent. Vascular Dr. Hand has signed off as patient keeps refusing the surgery when it is scheduled. Patient will continue on IV antibiotics and need to follow up with Dr. Kaur outpatient for further discussion regarding amputation. He is on IV zosyn IV daptomycin. cultures are showing MRSA. Creatinine 2.8 today. Review of Systems Constitutional: Reports fatigue. denied any fever. Cardio vascular: denied any chest pain, palpitations Gastrointestinal: denied any nausea, vomiting, diarrhea Pulmonary: Denied any shortness of breath cough Neurologic denied any new focal deficits Reports weakness and pain. All inpatient medications were reviewed and appropriate changes in these medications as dictated in the interval history and assessment and plan. PHYSICAL EXAMINATION: GENERAL: The patient is alert and oriented x3, not in any acute distress. Well developed, well nourished. HEENT: Pupils are round and equally reacting to light. EOMI. No scleral icterus. No conjunctival pallor. Normocephalic, atraumatic. No pharyngeal erythema. No th yromegaly. CARDIOVASCULAR: S1 and S2 present. No murmurs, rubs, or gallops. PULMONARY: Diminished. ABDOMEN: Soft, nontender, nondistended, normoactive bowel sounds. No palpable organomegaly. MUSCULOSKELETAL: No joint swelling or deformity. EXTREMITIES: No cyanosis, clubbing, or pedal edema. +1 edema and erythema lower extremity. Has temporary dialysis catheter in place. NEUROLOGICAL: Gross neurological examination did not reveal any focal deficits. Weakness. SKIN: No rashes. Dressing intact to bilateral wounds. Erythema and swelling to the right lower extremity. Assessment -Acute on chronic congestive heart failure nonischemic cardiomyopathy/systolic dysfunction EF less than 20% -Acute on chronic recurrent right lower leg cellulitis -infected right heel diabetic ulcer with prior history of debridement. Culture showing MRSA. Nonhealing. Patient now agreeable to amputation. Vascular following -Acute kidney injury likely ATN from cardiorenal syndrome, worsening renal function patient has been started on hemodialysis -Transaminitis likely from hepatic congestion -Lower extremity chronic venous insufficiency -Hx of COPD -Diabetes mellitus type 2 chronically on insulin, uncontrolled with hypoglycemia -Hyperlipidemia -Chronic kidney disease stage III from diabetic nephropathy and nephrosclerosis -Altered mental status due to acute metabolic and toxic encephalopathy from ANGY, medication affect -Hyperkalemia from the ANGY -moderate to severe MR/moderate TR and severe pulmonary hypertension -Chronic low back pain. -Hypotension maintained on midodrine -Obstructive sleep apnea sometimes uses CPAP machine -Diabetic peripheral neuropathy -Anxiety -DJD -AICD -Lower extremity chronic venous insufficiency GI prophylaxis DVT prophylaxis Full Code Plan Continue on IV antibiotics, ID following. Local wound care to bilateral lower extremities to continue Patient and not completely decided on amputation which has now been cancelled. Patient will need to follow up with Dr. Kaur on discharge. Continues on hemodialysis Nephrology following closely [place] for pain management, avoid narcotics if possible. Psychiatry following, cymbalta has been discontinued. Monitor liver function will repeat labs in the AM, consider gallbladder [facility] has given surgical clearance for amputation Recommend AM labs The impression and plan of care has been dictated by Fozia Lopez, Nurse Practitioner as directed. Dr. Megan MD I have performed a history and physical examination and medical decision making of this patient, discussed the same with the dictator, and agree with the dictators assessment and plan as written, documented as a scribe. Based on total visit time, I have performed more than 50% of this visit. Objective - Vital Signs Vital signs: Vital Signs Temp 96.7 F L 06/26/23 15:04 Pulse 100 06/26/23 15:49 Resp 19 06/26/23 19:38 BP 82/55 06/26/23 15:04 Pulse Ox 91 L 06/26/23 15:04 FiO2 Intake & Output 06/26/23 06/26/23 06/27/23 06:59 18:59 06:59 Intake Total 400 Output Total 300 2650 150 Balance -300 -2250 -150 Weight 102 kg Intake: Hemodialysis 400 Output: Urine 300 150 150 Hemodialysis 2500 Other: Voiding Method Indwelling Catheter Indwelling Catheter Indwelling Catheter # Voids 0 0 # Bowel Movements 1 - Labs CBC & Chem 7: 06/24/23 04:13 06/26/23 05:46 Labs: Abnormal Lab Results - Last 24 Hours (Table) 06/26/23 06/26/23 06/26/23 Range/Units 05:46 06:46 11:54 Potassium 3.4 L (3.5-5.5) mmol/L Anion Gap 14.20 H (4.00-12.00) mmol/L BUN 28.0 H (9.0-27.0) mg/dL Creatinine 2.8 H (0.6-1.5) mg/dL Est GFR (CKD-EPI) 26 L (>=60) BUN/Creatinine Ratio 10.00 L (12.00-20.00) Ratio Glucose 182 H (70-110) mg/dL POC Glucose (mg/dL) 158 H 113 H (70-110) mg/dL 06/26/23 Range/Units 21:01 Potassium (3.5-5.5) mmol/L Anion Gap (4.00-12.00) mmol/L BUN (9.0-27.0) mg/dL Creatinine (0.6-1.5) mg/dL Est GFR (CKD-EPI) (>=60) BUN/Creatinine Ratio (12.00-20.00) Ratio Glucose (70-110) mg/dL POC Glucose (mg/dL) 116 H (70-110) mg/dL Assessment and Plan Time with Patient: Less than 30
[2023-06-26] MEDS: MELATONIN 5 MG TABLET PO SCH (21:49)
[2023-06-27] MEDS: OLANZapine 5 MG TAB PO PRN ×2 (01:34→22:30)
[2023-06-27] MEDS: traZODone HCL 50 MG TAB PO PRN (01:52)
[2023-06-27 05:57] LABS: Glucose,Whole Blood 94 mg/dL (70-110)
[2023-06-27] MEDS: INSULIN ASPART (NovoLOG) 100 UNIT/ML VIAL SQ SCH ×4 (06:07→21:12)
[2023-06-27] MEDS: INSULIN DETEMIR (LEVEMIR) 100 UNIT/ML SYR SQ SCH (06:07)
[2023-06-27] MEDS: IPRATROPIUM-ALBUTEROL 3 ML NEB INHALATION SCH ×4 (08:52→21:08)
[2023-06-27] MEDS: ASPIRIN 81 MG PO SCH (09:23)
[2023-06-27] MEDS: SODIUM BICARBONATE TAB 650 MG TAB PO SCH ×2 (09:23→21:12)
[2023-06-27] MEDS: MIDODRINE 5 MG TAB PO SCH ×3 (09:23→20:06)
[2023-06-27] MEDS: FAMOTIDINE 20 MG TAB PO SCH (09:23)
[2023-06-27] MEDS: DULoxetine HCL 30 MG CAPSULE.DR PO SCH (09:23)
[2023-06-27] MEDS: METOPROLOL SUCCINATE (ER) 25 MG TAB.ER.24H PO SCH (09:23)
[2023-06-27] MEDS: PIPERACILLIN-TAZOBACTAM 3.375 GM in SODIUM CHLORIDE 0.9% 100 ML IVPB SCH ×2 (09:24→21:10)
[2023-06-27] MEDS: HEPARIN SODIUM,PORCINE 5,000 UNIT/ML 1 ML VIAL SQ SCH ×3 (09:24→22:23)
[2023-06-27] MEDS: LIDOCAINE 4% PATCH TOPICAL SCH (09:24)
--- NOTE | 2023-06-27 11:23 | P.PN ---
Subjective Patient is seen in follow-up for acute kidney injury on chronic kidney disease. Started on hemodialysis 06/22/2023. Has femoral catheter. Resting in bed. Tolerating dialysis well. Hemodynamically stable. Vital signs are stable. General: No acute distress. HEENT: Head exam is unremarkable. LUNGS: No audible rhonchi or wheezes. HEART: Rate and Rhythm are regular. ABDOMEN: Nontender. EXTREMITITES: 1+ edema. Wounds noted. Objective - Vital Signs Vital signs: Vital Signs Temp 97.5 F L 06/27/23 07:36 Pulse 108 H 06/27/23 09:04 Resp 19 06/27/23 07:40 BP 109/74 06/27/23 07:36 Pulse Ox 98 06/27/23 01:31 FiO2 Intake & Output 06/26/23 06/27/23 06/27/23 18:59 06:59 18:59 Intake Total 400 240 Output Total 2650 150 Balance -2250 -150 240 Weight 101.8 kg Intake: Oral 240 Hemodialysis 400 Output: Urine 150 150 Hemodialysis 2500 Other: Voiding Method Indwelling Catheter Indwelling Catheter Indwelling Catheter # Voids 0 0 # Bowel Movements 1 1 - Labs CBC & Chem 7: 06/24/23 04:13 06/26/23 05:46 Labs: Abnormal Lab Results - Last 24 Hours (Table) 06/26/23 06/26/23 Range/Units 11:54 21:01 POC Glucose (mg/dL) 113 H 116 H (70-110) mg/dL Assessment and Plan Plan: Assessment: 1. Acute kidney injury secondary to ATN secondary to cardiorenal syndrome. Creatinine 1.7-2.3 from last admission. No hydronephrosis noted on ultrasound on 05/16/2023. Trace protein on UA. Renal function worsened this admission with creatinine up to 6.46 dated 06/22/2023. Also low urine output. Started on hemodialysis 06/22/2023. Has left femoral catheter. 2. Chronic kidney disease stage IIIa secondary to diabetic kidney disease and cardiorenal syndrome. Creatinine 1.4 dated 06/03/2023 but from last admission. 3. Volume overload. Improving with ultrafiltration. 4. Acute on chronic systolic CHF with ejection fraction of less than 20% with moderate to severe mitral regurgitation, moderate tricuspid regurgitation and severe pulmonary hypertension. 5. Diabetes mellitus. 6. Metabolic acidosis secondary to acute kidney injury. On oral bicarb. Improving. 7. Right lower extremity wound with concern for osteomyelitis. Vascular surgery following. Patient refusing amputation. Plan: Currently seen while undergoing hemodialysis. Another treatment tomorrow. Continue to challenge ultrafiltration. Monitor for renal recovery. Avoid nephrotoxins. Maintain midodrine. Phosphorus level 3.5 dated 06/26/2023. Add torsemide. Urine output documented as 300-500 mL per 24 hours. Check chest x-ray. Patient will need a permacath placed and femoral catheter removed. Vascular surgery will be notified. Outpatient dialysis to be set up by medical case worker.
[2023-06-27 11:44] LABS: Glucose,Whole Blood 109 mg/dL (70-110)
[2023-06-27 11:49] LABS: ALT 141 U/L (10-49); AST 51 U/L (14-35); Albumin 3.3 g/dL (3.8-4.9); Albumin/Globulin Ratio 0.94 Ratio (1.60-3.17); Alkaline Phosphatase 242 U/L (41-126); Blood Urea Nitrogen 22.5 mg/dL (9.0-27.0); Calcium 8.8 mg/dL (8.7-10.3); Carbon Dioxide 22.8 mmol/L (21.6-31.8); Chloride 96 mmol/L (96-109); Globulin 3.5 g/dL (1.6-3.3); Glucose 100 mg/dL (70-110); Potassium 3.8 mmol/L (3.5-5.5); Sodium 135 mmol/L (135-145); Total Bilirubin 1.5 mg/dL (0.3-1.2); Total Protein 6.8 g/dL (6.2-8.2)
[2023-06-27] MEDS: NICOTINE 14MG/24HR PATCH TRANSDERM SCH (14:50)
--- NOTE | 2023-06-27 15:36 | XR ---
EXAMINATION TYPE: XR chest 1V DATE OF EXAM: 06/27/2023 COMPARISON: 06/22/2023 HISTORY: Shortness of breath TECHNIQUE: Single frontal view of the chest is obtained. FINDINGS: Cardiac device noted. There is elevated hemidiaphragm with subsegmental changes at the lef t lung base. Right-sided PICC line noted with no evidence of overt failure or pneumothorax. Hypertrop hic degenerative change of the spine. Arthropathy of the shoulders. IMPRESSION: 1. Left lower lobe infiltrate.
[2023-06-27 16:59] LABS: Glucose,Whole Blood 130 mg/dL (70-110)
[2023-06-27] MEDS: ACETAMINOPHEN TAB 325 MG TAB PO PRN (17:09)
[2023-06-27 20:25] LABS: Glucose,Whole Blood 165 mg/dL (70-110)
[2023-06-27] MEDS: HYDROcodone/APAP 5-325MG 1 EACH TAB PO PRN (21:11)
[2023-06-27] MEDS: MELATONIN 5 MG TABLET PO SCH (21:12)
[2023-06-28] MEDS: INSULIN ASPART (NovoLOG) 100 UNIT/ML VIAL SQ SCH ×4 (05:33→20:02)
[2023-06-28 05:34] LABS: Glucose,Whole Blood 145 mg/dL (70-110)
--- NOTE | 2023-06-28 05:49 | P.PN ---
Subjective Progress Note Date: 06/27/23 Patient remains on the medical floor, monitored closely by multiple consultations. He remains in acute renal failure and has been started on hemodialysis, will undergo HD today. Nephrology following closely. His mentation is improved slightly today, he is requesting pain medication, states he is in severe pain. Narcotics were discontinued as patient did have to be narcaned prior. He remains on IV daptomycin and IV zosyn for positive wound cultures of the right foot wound which is showing MRSA. Additionally there is ivet. Blood culture is negative. Patient has agreed to surgical amputation however there was conflicting information as his spouse does not want the amputation. Patient has been agreeing to this amputation since last week. White count 12.40. Creatinine 4.8. 06/26/2023 Patient evaluated today during hemodialysis. He remains undecided about amputation. He states he wants it, knows he needs it than changes his mind. Patients additionally does not want the amputation. He was re-evaluated by psychiatry and deemed competent. Vascular Dr. Hand has signed off as patient keeps refusing the surgery when it is scheduled. Patient will continue on IV antibiotics and need to follow up with Dr. Kaur outpatient for further discussion regarding amputation. He is on IV zosyn IV daptomycin. cultures are showing MRSA. Creatinine 2.8 today. 06/27/2023 Patient evaluated resting in bed during hemodialysis. He has decided against amputation will need to see vascular on an outpatient basis. Remains on IV antibiotics, ID following closely. Patient has no acute complaints. Creatinine is further improved to 1.5. Liver enzymes are improving also. Review of Systems Constitutional: Reports fatigue. denied any fever. Cardio vascular: denied any chest pain, palpitations Gastrointestinal: denied any nausea, vomiting, diarrhea Pulmonary: Denied any shortness of breath cough Neurologic denied any new focal deficits Reports weakness and pain. All inpatient medications were reviewed and appropriate changes in these medications as dictated in the interval history and assessment and plan. PHYSICAL EXAMINATION: GENERAL: The patient is alert and oriented x3, not in any acute distress. Well developed, well nourished. HEENT: Pupils are round and equally reacting to light. EOMI. No scleral icterus. No conjunctival pallor. Normocephalic, atraumatic. No pharyngeal erythema. No thyromegaly. CARDIOVASCULAR: S1 and S2 present. No murmurs, rubs, or gallops. PULMONARY: Diminished. ABDOMEN: Soft, nontender, nondistended, normoactive bowel sounds. No palpable organomegaly. MUSCULOSKELETAL: No joint swelling or deformity. EXTREMITIES: No cyanosis, clubbing, or pedal edema. +1 edema and erythema lower extremity. Has temporary dialysis catheter in place. NEUROLOGICAL: Gross neurological examination did not reveal any focal deficits. Weakness. SKIN: No rashes. Dressing intact to bilateral wounds. Erythema and swelling to the right lower extremity. Assessment -Acute on chronic congestive heart failure nonischemic cardiomyopathy/systolic dysfunction EF less than 20% -Acute on chronic recurrent right lower leg cellulitis -infected right heel diabetic ulcer with prior history of debridement. Culture showing MRSA. Nonhealing. Patient now agreeable to amputation. Vascular following -Acute kidney injury likely ATN from cardiorenal syndrome, worsening renal function patient has been started on hemodialysis -Transaminitis likely from hepatic congestion -Lower extremity chronic venous insufficiency -Hx of COPD -Diabetes mellitus type 2 chronically on insulin, uncontrolled with hypoglycemia -Hyperlipidemia -Chronic kidney disease stage III from diabetic nephropathy and nephrosclerosis -Altered mental status due to acute metabolic and toxic encephalopathy from ANGY, medication affect -Hyperkalemia from the ANGY -moderate to severe MR/moderate TR and severe pulmonary hypertension -Chronic low back pain. -Hypotension maintained on midodrine -Obstructive sleep apnea sometimes uses CPAP machine -Diabetic peripheral neuropathy -Anxiety -DJD -AICD -Lower extremity chronic venous insufficiency GI prophylaxis DVT prophylaxis Full Code Plan Continue on IV antibiotics, ID following. Local wound care to bilateral lower extremities to continue Patient and not completely decided on amputation which has now been cancelled. Patient will need to follow up with Dr. Kaur on discharge. Continues on hemodialysis Nephrology following closely [place] for pain management, avoid narcotics if possible. Psychiatry following, cymbalta has been discontinued. Monitor liver function will repeat labs in the AM, consider gallbladder [facility] has given surgical clearance for amputation Recommend AM labs The impression and plan of care has been dictated by Fozia Lopez, Nurse Practitioner as directed. Dr. Megan MD I have performed a history and physical examination and medical decision making of this patient, discussed the same with the dictator, and agree with the dictators assessment and plan as written, documented as a scribe. Based on total visit time, I have performed more than 50% of this visit. Objective - Vital Signs Vital signs: Vital Signs Temp 97.8 F 06/28/23 02:22 Pulse 90 06/28/23 02:22 Resp 18 06/28/23 02:22 BP 82/64 06/28/23 02:22 Pulse Ox 96 06/28/23 02:22 FiO2 Intake & Output 06/27/23 06/27/23 06/28/23 06:59 18:59 06:59 Intake Total 1540 Output Total 150 2850 1 Balance -150 -1310 -1 Weight 101.8 kg 102 kg Intake: Intake, IV Titration 100 Amount Piperacillin-Tazobactam 3 100 .375 gm In Sodium Chloride 0.9% 100 ml @ 25 mls/hr IVPB Q12HR [facility] Rx #:[id number] Oral 940 Hemodialysis 500 Output: Urine 150 350 1 Hemodialysis 2500 Other: Voiding Method Indwelling Catheter Indwelling Catheter Indwelling Catheter # Voids 0 0 # Bowel Movements 1 1 - Labs CBC & Chem 7: 06/24/23 04:13 06/27/23 05:41 Labs: Abnormal Lab Results - Last 24 Hours (Table) 06/27/23 06/27/23 06/27/23 Range/Units 05:41 16:56 20:23 Anion Gap 16.20 H (4.00-12.00) mmol/L Creatinine 2.5 H (0.6-1.5) mg/dL Est GFR (CKD-EPI) 30 L (>=60) BUN/Creatinine Ratio 9.00 L (12.00-20.00) Ratio POC Glucose (mg/dL) 130 H 165 H (70-110) mg/dL Total Bilirubin 1.5 H (0.3-1.2) mg/dL AST 51 H (14-35) U/L ALT 141 H (10-49) U/L Alkaline Phosphatase 242 H (41-126) U/L Albumin 3.3 L (3.8-4.9) g/dL Globulin 3.5 H (1.6-3.3) g/dL Albumin/Globulin Ratio 0.94 L (1.60-3.17) Ratio 06/28/23 Range/Units 05:30 Anion Gap (4.00-12.00) mmol/L Creatinine (0.6-1.5) mg/dL Est GFR (CKD-EPI) (>=60) BUN/Creatinine Ratio (12.00-20.00) Ratio POC Glucose (mg/dL) 145 H (70-110) mg/dL Total Bilirubin (0.3-1.2) mg/dL AST (14-35) U/L ALT (10-49) U/L Alkaline Phosphatase (41-126) U/L Albumin (3.8-4.9) g/dL Globulin (1.6-3.3) g/dL Albumin/Globulin Ratio (1.60-3.17) Ratio Assessment and Plan Time with Patient: Less than 30
[2023-06-28] MEDS: INSULIN DETEMIR (LEVEMIR) 100 UNIT/ML SYR SQ SCH (06:06)
[2023-06-28] MEDS ORDERED: SODIUM CHLORIDE 0.9% 500 ML 500 ML IV ONE (07:16)
[2023-06-28] MEDS ORDERED: MIDAZOLAM 2 MG/2 ML VIAL IVP ONE (07:29)
[2023-06-28] MEDS ORDERED: LIDOCAINE 1% INJ 10MG/ML (20 ML MDV) SQ ONE (07:30)
[2023-06-28] MEDS ORDERED: fentaNYL (PF) 50 MCG/ML 2 ML AMP IVP ONE (07:35)
[2023-06-28] MEDS: IPRATROPIUM-ALBUTEROL 3 ML NEB INHALATION SCH ×4 (08:27→20:07)
[2023-06-28] MEDS: MIDODRINE 5 MG TAB PO SCH ×3 (08:36→17:37)
[2023-06-28] MEDS: FAMOTIDINE 20 MG TAB PO SCH (08:36)
[2023-06-28] MEDS: DULoxetine HCL 30 MG CAPSULE.DR PO SCH (08:36)
[2023-06-28] MEDS: SODIUM BICARBONATE TAB 650 MG TAB PO SCH ×2 (08:36→20:49)
[2023-06-28] MEDS: METOPROLOL SUCCINATE (ER) 25 MG TAB.ER.24H PO SCH (08:36)
[2023-06-28] MEDS: PIPERACILLIN-TAZOBACTAM 3.375 GM in SODIUM CHLORIDE 0.9% 100 ML IVPB SCH ×2 (08:36→20:49)
[2023-06-28] MEDS: HEPARIN SODIUM,PORCINE 5,000 UNIT/ML 1 ML VIAL SQ SCH ×3 (08:36→23:55)
[2023-06-28] MEDS: TORSEMIDE 20 MG TAB PO SCH (08:36)
[2023-06-28] MEDS: ASPIRIN 81 MG PO SCH (08:37)
[2023-06-28] MEDS: HYDROcodone/APAP 5-325MG 1 EACH TAB PO PRN (08:37)
[2023-06-28] MEDS: LIDOCAINE 4% PATCH TOPICAL SCH (08:37)
[2023-06-28] MEDS: NICOTINE 14MG/24HR PATCH TRANSDERM SCH (08:39)
--- NOTE | 2023-06-28 09:09 | XR ---
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 TECHNIQUE: XR chest 1V portable Frontal view of the chest. FINDINGS: Lungs/Pleura: There is no evidence of pleural effusion, focal consolidation, or pneumothorax. Pulmonary vascularity: Pulmonary vascular congestion. Heart/mediastinum: Cardiomediastinal silhouette is enlarged and stable. Single-lead cardiac conductio n device overlying the left hemithorax with lead projecting over the right ventricle. Musculoskeletal: No acute osseous pathology. Other findings: None Lines/Tubes: Right internal jugular central venous catheter with distal tip at the cavoatrial junction. IMPRESSION: 1. Right central venous catheter with tip in appropriate position. 2. Cardiomegaly with pulmonary vascular congestion
--- NOTE | 2023-06-28 09:41 | IR ---
EXAMINATION TYPE: IR cvc insert central tunneled DATE OF EXAM: 06/28/2023 COMPARISON: NONE HISTORY: Fluoroscopy time. Fluoroscopy was provided to the referring clinician.
--- NOTE | 2023-06-28 09:53 | OP ---
OPERATIVE REPORT DATE OF SERVICE : PREOPERATIVE DIAGNOSIS: Acute chronic renal failure. PROCEDURES PERFORMED: 1. Ultrasound-guided 23 cm dialysis catheter placed, right jugular approach. 2. Removal of the temporary dialysis catheter via femoral vein. DESCRIPTION OF PROCEDURE: The patient was brought to the laborer tree tapping. Right side of the neck and chest was prepped and draped applied in a sterile. A 1% lidocaine was infiltrated. Ultrasound-guided micropuncture introduced in right jugular vein. After that, a 4-Hebrew dilator on top of the guidewire. Then we passed a regular guidewire which was parked in the inferior vena cava. Tunnel was created. Through the tunnel, we brought 23 cm dialysis catheter. The dilator was advanced on top of the guidewire and then we passed the sheath on the top of the guidewire. Through the sheath, we placed a dialysis catheter 23 cm tip of catheter in superior vena atrial junction. Flushed with heparin saline and hep-locked. Incision was closed with Vicryl and nylon. Dressing applied. Patient tolerated the procedure well and right groin was prepped and right femoral catheter was removed. Pressure was held. Patient tolerated the procedure well and transferred to the room in satisfactory condition. MMODL / IJN: [id number] /
[2023-06-28 11:16] LABS: Glucose,Whole Blood 87 mg/dL (70-110)
[2023-06-28 11:18] LABS: Magnesium 2.2 mg/dL (1.5-2.4)
[2023-06-28 11:23] LABS: BUN/Creat Ratio 9.52 Ratio (12.00-20.00); Blood Urea Nitrogen 21.9 mg/dL (9.0-27.0); Calcium 8.9 mg/dL (8.7-10.3); Carbon Dioxide 22.2 mmol/L (21.6-31.8); Chloride 97 mmol/L (96-109); Glucose 152 mg/dL (70-110); Potassium 3.8 mmol/L (3.5-5.5); Sodium 135 mmol/L (135-145)
--- NOTE | 2023-06-28 12:19 | P.PN ---
Subjective Patient is seen in follow-up for acute kidney injury on chronic kidney disease. Started on hemodialysis 06/22/2023. Femoral catheter removed and permacath placed this morning. Tolerating dialysis well. Edema improved. Resting in bed. Hemodynamically stable. Vital signs are stable. General: No acute distress. HEENT: Head exam is unremarkable. LUNGS: No audible rhonchi or wheezes. HEART: Rate and Rhythm are regular. ABDOMEN: Nontender. EXTREMITITES: 1+ edema. Wounds noted. Objective - Vital Signs Vital signs: Vital Signs Temp 99.0 F 06/28/23 08:19 Pulse 88 06/28/23 11:33 Resp 18 06/28/23 08:19 BP 118/83 06/28/23 08:19 Pulse Ox 97 06/28/23 08:19 FiO2 Intake & Output 06/27/23 06/28/23 06/28/23 18:59 06:59 18:59 Intake Total 1540 Output Total 2850 251 1 Balance -1310 -251 -1 Weight 102 kg Intake: Intake, IV Titration 100 Amount Piperacillin-Tazobactam 3 100 .375 gm In Sodium Chloride 0.9% 100 ml @ 25 mls/hr IVPB Q12HR [facility] Rx #:[id number] Oral 940 Hemodialysis 500 Output: Urine 350 251 1 Hemodialysis 2500 Other: Voiding Method Indwelling Catheter Indwelling Catheter Indwelling Catheter # Voids 0 0 # Bowel Movements 1 - Labs CBC & Chem 7: 06/24/23 04:13 06/28/23 06:51 Labs: Abnormal Lab Results - Last 24 Hours (Table) 06/27/23 06/27/23 06/28/23 Range/Units 16:56 20:23 05:30 Anion Gap (4.00-12.00) mmol/L Creatinine (0.6-1.5) mg/dL Est GFR (CKD-EPI) (>=60) BUN/Creatinine Ratio (12.00-20.00) Ratio Glucose (70-110) mg/dL POC Glucose (mg/dL) 130 H 165 H 145 H (70-110) mg/dL 06/28/23 Range/Units 06:51 Anion Gap 15.80 H (4.00-12.00) mmol/L Creatinine 2.3 H (0.6-1.5) mg/dL Est GFR (CKD-EPI) 33 L (>=60) BUN/Creatinine Ratio 9.52 L (12.00-20.00) Ratio Glucose 152 H (70-110) mg/dL POC Glucose (mg/dL) (70-110) mg/dL Assessment and Plan Plan: Assessment: 1. Acute kidney injury secondary to ATN secondary to cardiorenal syndrome. Creatinine 1.7-2.3 from last admission. No hydronephrosis noted on ultrasound on 05/16/2023. Trace protein on UA. Renal function worsened this admission wi th creatinine up to 6.46 dated 06/22/2023. Also low urine output. Started on hemodialysis 06/22/2023. Has left femoral catheter. 2. Chronic kidney disease stage IIIa secondary to diabetic kidney disease and cardiorenal syndrome. Creatinine 1.4 dated 06/03/2023 but 1.7-2.3 from last admission. 3. Volume overload. Improving with ultrafiltration. 4. Acute on chronic systolic CHF with ejection fraction of less than 20% with moderate to severe mitral regurgitation, moderate tricuspid regurgitation and severe pulmonary hypertension. 5. Diabetes mellitus. 6. Metabolic acidosis secondary to acute kidney injury. On oral bicarb. 7. Right lower extremity wound with concern for osteomyelitis. Vascular surgery following. Patient refusing amputation. Plan: Currently seen while undergoing hemodialysis. Another treatment tomorrow. Continue to challenge ultrafiltration. Monitor for renal recovery. Avoid nephrotoxins. Maintain midodrine. Phosphorus level 3.5 dated 06/26/2023. Maintain torsemide. Outpatient dialysis to be set up by child welfare caseworker.
--- NOTE | 2023-06-28 15:35 | P.PN ---
Subjective Progress Note Date: 06/28/23 Patient remains on the medical floor, monitored closely by multiple consultations. He remains in acute renal failure and has been started on hemodialysis, will undergo HD today. Nephrology following closely. His mentation is improved slightly today, he is requesting pain medication, states he is in severe pain. Narcotics were discontinued as patient did have to be narcaned prior. He remains on IV daptomycin and IV zosyn for positive wound cultures of the right foot wound which is showing MRSA. Additionally there is ivet. Blood culture is negative. Patient has agreed to surgical amputation however there was conflicting information as his spouse does not want the amputation. Patient has been agreeing to this amputation since last week. White count 12.40. Creatinine 4.8. 06/26/2023 Patient evaluated today during hemodialysis. He remains undecided about amputation. He states he wants it, knows he needs it than changes his mind. Patients additionally does not want the amputation. He was re-evaluated by psychiatry and deemed competent. Vascular Dr. Hand has signed off as patient keeps refusing the surgery when it is scheduled. Patient will continue on IV antibiotics and need to follow up with Dr. Kaur outpatient for further discussion regarding amputation. He is on IV zosyn IV daptomycin. cultures are showing MRSA. Creatinine 2.8 today. 06/27/2023 Patient evaluated resting in bed during hemodialysis. He has decided against amputation will need to see vascular on an outpatient basis. Remains on IV antibiotics, ID following closely. Patient has no acute complaints. Creatinine is further improved to 1.5. Liver enzymes are improving also. 06/28/2023 Patient continues on hemodialysis set up for outpatient chair time at [facility]. Patient will be discharging to [facility] facility which cannot accomodate this patient until Saturday. Amputation has been cancelled this hospital stay. PICC line in place for IV antibiotics to continue in the outpatient setting. Local wound care to continue. Patients mentation waxing and waning today he is alert x 3 although confused at times and forgetful. He had fallen twice yesterday apparently due to getting up by himself. Review of Systems Constitutional: Reports fatigue. denied any fever. Cardio vascular: denied any chest pain, palpitations Gastrointestinal: denied any nausea, vomiting, diarrhea Pulmonary: Denied any shortness of breath cough Neurologic denied any new focal deficits Reports weakness and pain. All inpatient medications were reviewed and appropriate changes in these medications as dictated in the interval history and assessment and plan. PHYSICAL EXAMINATION: GENERAL: The patient is alert and oriented x3, not in any acute distress. Well developed, well nourished. HEENT: Pupils are round and equally reacting to light. EOMI. No scleral icterus. No conjunctival pallor. Normocephalic, atraumatic. No pharyngeal erythema. No thyromegaly. CARDIOVASCULAR: S1 and S2 present. No murmurs, rubs, or gallops. PULMONARY: Diminished. ABDOMEN: Soft, nontender, nondistended, normoactive bowel sounds. No palpable organomegaly. MUSCULOSKELETAL: No joint swelling or deformity. EXTREMITIES: No cyanosis, clubbing, or pedal edema. +1 edema and erythema lower extremity. Has temporary dialysis catheter in place. NEUROLOGICAL: Gross neurological examination did not reveal any focal deficits. Weakness. SKIN: No rashes. Dressing intact to bilateral wounds. Erythema and swelling to the right lower extremity. Assessment -Acute on chronic congestive heart failure nonischemic cardiomyopathy/systolic dysfunction EF less than 20% -Acute on chronic recurrent right lower leg cellulitis -infected right heel diabetic ulcer with prior history of debridement. Culture showing MRSA. Nonhealing. No amputation planned this admission. -Acute kidney injury likely ATN from cardiorenal syndrome, worsening renal function patient has been started on hemodialysis -Transaminitis likely from hepatic congestion improving with dialysis. -Lower extremity chronic venous insufficiency -Hx of COPD -Diabetes mellitus type 2 chronically on insulin, uncontrolled with hypoglycemia -Hyperlipidemia -Chronic kidney disease stage III from diabetic nephropathy and nephrosclerosis -Altered mental status due to acute metabolic and toxic encephalopathy from ANGY, medication affect -Hyperkalemia from the ANGY -moderate to severe MR/moderate TR and severe pulmonary hypertension -Chronic low back pain. -Hypotension maintained on midodrine -Obstructive sleep apnea sometimes uses CPAP machine -Diabetic peripheral neuropathy -Anxiety -DJD -AICD -Lower extremity chronic venous insufficiency GI prophylaxis DVT prophylaxis Full Code Plan Continue on IV antibiotics, ID following. Local wound care to bilateral lower extremities to continue Patient and not completely decided on amputation which has now been cancelled. Patient will need to follow up with Dr. Kaur on discharge who will continue to see patient in the wound clinic on discharge. Continues on hemodialysis Nephrology following closely patient is set up for chair time /[place]/Sat for discharge and now has permacath to the right chest wall. Discharge to [facility] facility when ready they cannot accommodate until saturday at the earliest. [place] for pain management, avoid narcotics if possible. Psychiatry following, cymbalta has been discontinued. Patient medically competent to make own decisions per psychology. Monitor liver function, enzymes improving. Cardiology has given surgical clearance for amputation Recommend AM labs The impression and plan of care has been dictated by Fozia Lopez, Nurse Practitioner as directed. Dr. Megan MD I have performed a history and physical examination and medical decision making of this patient, discussed the same with the dictator, and agree with the dictators assessment and plan as written, documented as a scribe. Based on total visit time, I have performed more than 50% of this visit. Objective - Vital Signs Vital signs: Vital Signs Temp 97.6 F 06/28/23 13:55 Pulse 94 06/28/23 13:55 Resp 19 06/28/23 13:55 BP 101/61 06/28/23 13:55 Pulse Ox 92 L 06/28/23 13:55 FiO2 Intake & Output 06/27/23 06/28/23 06/28/23 18:59 06:59 18:59 Intake Total 1540 500 Output Total 2850 251 2501 Balance -1309 Weight 102 kg Intake: Intake, IV Titration 100 Amount Piperacillin-Tazobactam 3 100 .375 gm In Sodium Chloride 0.9% 100 ml @ 25 mls/hr IVPB Q12HR [facility] Rx #:[id number] Oral 940 Hemodialysis 500 500 Output: Urine 350 251 1 Hemodialysis 2500 2500 Other: Voiding Method Indwelling Catheter Indwelling Catheter Indwelling Catheter # Voids 0 0 # Bowel Movements 1 - Labs CBC & Chem 7: 06/24/23 04:13 06/28/23 06:51 Labs: Abnormal Lab Results - Last 24 Hours (Table) 06/27/23 06/27/23 06/28/23 Range/Units 16:56 20:23 05:30 Anion Gap (4.00-12.00) mmol/L Creatinine (0.6-1.5) mg/dL Est GFR (CKD-EPI) (>=60) BUN/Creatinine Ratio (12.00-20.00) Ratio Glucose (70-110) mg/dL POC Glucose (mg/dL) 130 H 165 H 145 H (70-110) mg/dL 06/28/23 Range/Units 06:51 Anion Gap 15.80 H (4.00-12.00) mmol/L Creatinine 2.3 H (0.6-1.5) mg/dL Est GFR (CKD-EPI) 33 L (>=60) BUN/Creatinine Ratio 9.52 L (12.00-20.00) Ratio Glucose 152 H (70-110) mg/dL POC Glucose (mg/dL) (70-110) mg/dL Assessment and Plan Time with Patient: Less than 30
[2023-06-28 17:27] LABS: Glucose,Whole Blood 87 mg/dL (70-110)
--- NOTE | 2023-06-28 17:37 | P.PN ---
Subjective Progress Note Date: 06/26/23 Principal diagnosis: Reason for follow-up is right heel diabetic foot infection and osteomyelitis Patient is a 53-year-old male with a past medical history significant for diabetes mellitus hyperlipidemia hypertension [place] history of diabetic foot infection with a chronic nonhealing wound to the right heel area and underlying osteomyelitis with a previous culture positive for Proteus Acinetobacter providencia and anaerobes, presented to hospital with chest pain shortness of breath and some mental status changes, patient did have worsening of his kidney function requiring dialysis catheter placement and has been started on dialysis On today's evaluation that is 06/26/2023, the patient remains to be febrile, the patient is breathing comfortably on room air. The patient denies having any shortness of breath no chest pain or cough, patient denies Abdominal pain, no nausea/vomiting or diarrhea, did come in view of some pain to the right heel area The patient white count is 12.40 as of 06/24/2023, and creatinine is 2.8 Objective - Vital Signs Vital signs: Vital Signs Temp 97.4 F L 06/26/23 07:33 Pulse 98 06/26/23 12:40 Resp 18 06/26/23 07:33 BP 101/62 06/26/23 07:33 Pulse Ox 98 06/26/23 07:33 FiO2 Intake & Output 06/25/23 06/26/23 06/26/23 18:59 06:59 18:59 Intake Total 400 Output Total 2800 300 Balance -2400 -300 Weight 102 kg Intake: Hemodialysis 400 Output: Urine 200 300 Hemodialysis 2600 Other: Voiding Method Indwelling Catheter Indwelling Catheter Indwelling Catheter # Voids 0 - Exam GENERAL DESCRIPTION: A middle-age male up in bed in no distress RESPIRATORY SYSTEM: Unlabored breathing , clear to auscultation anteriorly HEART: S1 S2 regular rate and rhythm , ABDOMEN: Soft , no tenderness EXTREMITIES: Right heel wound is currently dressed no drainage - Labs CBC & Chem 7: 06/24/23 04:13 06/28/23 06:51 Labs: Abnormal Lab Results - Last 24 Hours (Table) 06/25/23 06/25/23 06/26/23 Range/Units 16:27 19:38 05:46 Potassium 3.4 L (3.5-5.5) mmol/L Anion Gap 14.20 H (4.00-12.00) mmol/L BUN 28.0 H (9.0-27.0) mg/dL Creatinine 2.8 H (0.6-1.5) mg/dL Est GFR (CKD-EPI) 26 L (>=60) BUN/Creatinine Ratio 10.00 L (12.00-20.00) Ratio Glucose 182 H (70-110) mg/dL POC Glucose (mg/dL) 200 H 189 H (70-110) mg/dL 06/26/23 06/26/23 Range/Units 06:46 11:54 Potassium (3.5-5.5) mmol/L Anion Gap (4.00-12.00) mmol/L BUN (9.0-27.0) mg/dL Creatinine (0.6-1.5) mg/dL Est GFR (CKD-EPI) (>=60) BUN/Creatinine Ratio (12.00-20.00) Ratio Glucose (70-110) mg/dL POC Glucose (mg/dL) 158 H 113 H (70-110) mg/dL Assessment and Plan (1) Wound of foot Current Visit: Yes Status: Acute Code(s): S91.309A - UNSPECIFIED OPEN WOUND, UNSPECIFIED FOOT, INITIAL ENCOUNTER SNOMED Code(s): 237831909 (2) Foot osteomyelitis, right Current Visit: No Status: Acute Code(s): M86.9 - OSTEOMYELITIS, UNSPECIFIED SNOMED Code(s): 5722280652865993 Plan: 1patient with the right heel diabetic foot infection with underlying osteomyelitis in this patient cultures were predominantly positive for gram-nega tive including Proteus Providencia Streptococcus and anaerobes , Culture done this admission has been positive for MRSA 2patient did have worsening of his kidney function vascular surgery as placed d ialysis catheter and the patient started on dialysis 3patient to continue with Zosyn and daptomycin waiting for possible amputation as that will help healing of his infection Dictation was produced using [employer] dictation software. please excuse any grammatical, word or spelling errors. Time with Patient: Less than 30
--- NOTE | 2023-06-28 17:39 | P.PN ---
Subjective Progress Note Date: 06/27/23 Principal diagnosis: Reason for follow-up is right heel diabetic foot infection and osteomyelitis Patient is a 53-year-old male with a past medical history significant for diabetes mellitus hyperlipidemia hypertension [place] history of diabetic foot infection with a chronic nonhealing wound to the right heel area and underlying osteomyelitis with a previous culture positive for Proteus Acinetobacter providencia and anaerobes, presented to hospital with chest pain shortness of breath and some mental status changes, patient did have worsening of his kidney function requiring dialysis catheter placement and has been started on dialysis On today's evaluation that is 06/27/2023, the patient denies any fever or any chills, the patient is breathing comfortably on room air and denies any shortness of breath, the patient denies any chest pain, no cough or sputum production, patient denies nausea/vomiting /diarrhea and no abdominal pain, denies requesting pain to the right heel wound area The patient white count is 12.40 as of 06/24/2023, and creatinine is 2.5 Objective - Vital Signs Vital signs: Vital Signs Temp 98.4 F 06/27/23 13:07 Pulse 72 06/27/23 13:07 Resp 20 06/27/23 13:07 BP 117/102 06/27/23 13:07 Pulse Ox 98 06/27/23 01:31 FiO2 Intake & Output 06/26/23 06/27/23 06/27/23 18:59 06:59 18:59 Intake Total 400 740 Output Total 2650 150 2500 Balance -2250 -150 -1760 Weight 101.8 kg Intake: Oral 240 Hemodialysis 400 500 Output: Urine 150 150 Hemodialysis 2500 2500 Other: Voiding Method Indwelling Catheter Indwelling Catheter Indwelling Catheter # Voids 0 0 # Bowel Movements 1 1 - Exam GENERAL DESCRIPTION: A middle-age male up in bed in no distress RESPIRATORY SYSTEM: Unlabored breathing , clear to auscultation anteriorly HEART: S1 S2 regular rate and rhythm , ABDOMEN: Soft , no tenderness EXTREMITIES: Right heel wound is currently dressed no drainage - Labs CBC & Chem 7: 06/24/23 04:13 06/28/23 06:51 Labs: Abnormal Lab Results - Last 24 Hours (Table) 06/26/23 06/27/23 Range/Units 21:01 05:41 Anion Gap 16.20 H (4.00-12.00) mmol/L Creatinine 2.5 H (0.6-1.5) mg/dL Est GFR (CKD-EPI) 30 L (>=60) BUN/Creatinine Ratio 9.00 L (12.00-20.00) Ratio POC Glucose (mg/dL) 116 H (70-110) mg/dL Total Bilirubin 1.5 H (0.3-1.2) mg/dL AST 51 H (14-35) U/L ALT 141 H (10-49) U/L Alkaline Phosphatase 242 H (41-126) U/L Albumin 3.3 L (3.8-4.9) g/dL Globulin 3.5 H (1.6-3.3) g/dL Albumin/Globulin Ratio 0.94 L (1.60-3.17) Ratio Assessment and Plan (1) Wound of foot Current Visit: Yes Status: Acute Code(s): S91.309A - UNSPECIFIED OPEN WOUND, UNSPECIFIED FOOT, INITIAL ENCOUNTER SNOMED Code(s): 402751529 (2) Foot osteomyelitis, right Current Visit: No Status: Acute Code(s): M86.9 - OSTEOMYELITIS, UNSPECIFIED SNOMED Code(s): 7834032132393262 Plan: 1patient with the right heel diabetic foot infection with underlying osteomyelitis in this patient cultures were predominantly positive for gram- negative including Proteus Providencia Streptococcus and anaerobes , Culture done this admission has been positive for MRSA 2patient did have worsening of his kidney function and the patient be started on dialysis with the patient has been tolerating 3patient to continue with Zosyn and daptomycin patient benefit from amputation which she initially agreed to but now is refusing, vascular surgery has signed o ff Dictation was produced using [employer]. please excuse any grammatical, word or spelling errors. Time with Patient: Less than 30
--- NOTE | 2023-06-28 17:40 | P.PN ---
Subjective Progress Note Date: 06/28/23 Principal diagnosis: Reason for follow-up is right heel diabetic foot infection and osteomyelitis Patient is a 53-year-old male with a past medical history significant for diabetes mellitus hyperlipidemia hypertension [place] history of diabetic foot infection with a chronic nonhealing wound to the right heel area and underlying osteomyelitis with a previous culture positive for Proteus Acinetobacter providencia and anaerobes, presented to hospital with chest pain shortness of breath and some mental status changes, patient did have worsening of his kidney function requiring dialysis catheter placement and has been started on dialysis On today's evaluation that is 06/28/2023 the patient remains to be afebrile, the patient is breathing comfortably on room air and no need for oxygen. The patient denies shortness of breath denies any chest pain or cough, patient d enies nausea/vomiting or diarrhea and no abdominal pain., The patient denies any worsening pain to the right heel wound area The patient white count is 12.40 as of 06/24/2023, and creatinine is 2.3 Objective - Vital Signs Vital signs: Vital Signs Temp 99.0 F 06/28/23 08:19 Pulse 88 06/28/23 11:33 Resp 18 06/28/23 08:19 BP 118/83 06/28/23 08:19 Pulse Ox 97 06/28/23 08:19 FiO2 Intake & Output 06/27/23 06/28/23 06/28/23 18:59 06:59 18:59 Intake Total 1540 Output Total 2850 251 1 Balance -1310 -251 -1 Weight 102 kg Intake: Intake, IV Titration 100 Amount Piperacillin-Tazobactam 3 100 .375 gm In Sodium Chloride 0.9% 100 ml @ 25 mls/hr IVPB Q12HR [facility] Rx #:[id number] Oral 940 Hemodialysis 500 Output: Urine 350 251 1 Hemodialysis 2500 Other: Voiding Method Indwelling Catheter Indwelling Catheter Indwelling Catheter # Voids 0 0 # Bowel Movements 1 - Exam GENERAL DESCRIPTION: A middle-age male up in bed in no distress RESPIRATORY SYSTEM: Unlabored breathing , clear to auscultation anteriorly HEART: S1 S2 regular rate and rhythm , ABDOMEN: Soft , no tenderness EXTREMITIES: Right heel wound is currently dressed no drainage - Labs CBC & Chem 7: 06/24/23 04:13 06/28/23 06:51 Labs: Abnormal Lab Results - Last 24 Hours (Table) 06/27/23 06/27/23 06/28/23 Range/Units 16:56 20:23 05:30 Anion Gap (4.00-12.00) mmol/L Creatinine (0.6-1.5) mg/dL Est GFR (CKD-EPI) (>=60) BUN/Creatinine Ratio (12.00-20.00) Ratio Glucose (70-110) mg/dL POC Glucose (mg/dL) 130 H 165 H 145 H (70-110) mg/dL 06/28/23 Range/Units 06:51 Anion Gap 15.80 H (4.00-12.00) mmol/L Creatinine 2.3 H (0.6-1.5) mg/dL Est GFR (CKD-EPI) 33 L (>=60) BUN/Creatinine Ratio 9.52 L (12.00-20.00) Ratio Glucose 152 H (70-110) mg/dL POC Glucose (mg/dL) (70-110) mg/dL Assessment and Plan (1) Wound of foot Current Visit: Yes Status: Acute Code(s): S91.309A - UNSPECIFIED OPEN WOUND, UNSPECIFIED FOOT, INITIAL ENCOUNTER SNOMED Code(s): 861974684 (2) Foot osteomyelitis, right Current Visit: No Status: Acute Code(s): M86.9 - OSTEOMYELITIS, UNSPECIFIED SNOMED Code(s): 9265888272551482 Plan: 1patient with the right heel diabetic foot infection with underlying osteomyelitis in this patient cultures were predominantly positive for gram- negative including Proteus Providencia Streptococcus and anaerobes , Culture done this admission has been positive for MRSA 2patient did have worsening of his kidney function and the patient be started on dialysis with the patient has been tolerating 3patient to continue with Zosyn and daptomycin patient benefit from amputation which he initially agreed to but now is refusing, vascular surgery has signed off, patient is a high risk of failure of his medical treatment as the patient has been on antibiotic for almost 2 months now in my clinical opinion amputation of the best option for the patient at this point however if he continued to refuse may continue with the Zosyn and daptomycin for another few weeks as a clinical response, discussed with Dr. Kaur Dictation was produced using [employer] software. please excuse any grammatical, word or spelling errors. Time with Patient: Less than 30
[2023-06-28 18:57] LABS: Glucose,Whole Blood 230 mg/dL (70-110)
[2023-06-28 20:04] LABS: Glucose,Whole Blood 93 mg/dL (70-110)
[2023-06-28] MEDS: ACETAMINOPHEN TAB 325 MG TAB PO PRN (20:48)
[2023-06-28] MEDS: MELATONIN 5 MG TABLET PO SCH (20:49)
[2023-06-28] MEDS: traZODone HCL 50 MG TAB PO PRN (20:49)
[2023-06-29] MEDS: HYDROcodone/APAP 5-325MG 1 EACH TAB PO PRN (00:42)
[2023-06-29 05:43] LABS: Glucose,Whole Blood 121 mg/dL (70-110)
[2023-06-29] MEDS: INSULIN ASPART (NovoLOG) 100 UNIT/ML VIAL SQ SCH ×4 (05:50→20:50)
[2023-06-29] MEDS: MIDODRINE 5 MG TAB PO SCH ×3 (06:50→17:08)
[2023-06-29] MEDS: INSULIN DETEMIR (LEVEMIR) 100 UNIT/ML SYR SQ SCH (06:50)
[2023-06-29] MEDS: IPRATROPIUM-ALBUTEROL 3 ML NEB INHALATION SCH ×4 (09:23→18:23)
[2023-06-29] MEDS: METOPROLOL SUCCINATE (ER) 25 MG TAB.ER.24H PO SCH (10:25)
[2023-06-29] MEDS: HEPARIN SODIUM,PORCINE 5,000 UNIT/ML 1 ML VIAL SQ SCH ×3 (10:30→23:36)
[2023-06-29] MEDS: LIDOCAINE 4% PATCH TOPICAL SCH (10:30)
[2023-06-29] MEDS: PIPERACILLIN-TAZOBACTAM 3.375 GM in SODIUM CHLORIDE 0.9% 100 ML IVPB SCH ×2 (10:30→21:01)
[2023-06-29] MEDS: FAMOTIDINE 20 MG TAB PO SCH (10:31)
[2023-06-29] MEDS: DULoxetine HCL 30 MG CAPSULE.DR PO SCH (10:31)
[2023-06-29] MEDS: NICOTINE 14MG/24HR PATCH TRANSDERM SCH ×2 (10:31→10:44)
[2023-06-29] MEDS: TORSEMIDE 20 MG TAB PO SCH (10:31)
[2023-06-29] MEDS: SODIUM BICARBONATE TAB 650 MG TAB PO SCH ×2 (10:31→21:01)
[2023-06-29] MEDS: ASPIRIN 81 MG PO SCH (10:31)
[2023-06-29 11:29] LABS: Glucose,Whole Blood 162 mg/dL (70-110)
--- NOTE | 2023-06-29 11:45 | P.PN ---
Subjective Patient is seen for follow-up for acute kidney injury and top of chronic kidney disease with previous episodes of acute kidney injury during his last hospitalization. Admitted this time with shortness of breath and volume overload. Patient has been started on hemodialysis. Currently seen on hemodialysis. Tolerating treatment well. Objective - Vital Signs Vital signs: Vital Signs Temp 97.8 F 06/29/23 08:13 Pulse 88 06/29/23 09:38 Resp 20 06/29/23 08:13 BP 104/71 06/29/23 08:13 Pulse Ox 99 06/29/23 08:13 FiO2 Intake & Output 06/28/23 06/29/23 06/29/23 18:59 06:59 18:59 Intake Total 620 480 Output Total 2801 110 Balance -2181 370 Weight 102 kg Intake: IV 120 0.9 120 Oral 480 Hemodialysis 500 Output: Urine 301 110 Hemodialysis 2500 Other: Voiding Method Indwelling Catheter Indwelling Catheter # Voids 0 1 - Exam Patient is awake, comfortable, no acute distress Examination of the heart S1 and S2 Examination of the lungs shows decreased breath sounds at the bases Examination lower extremities shows 2-3+ edema bilaterally with chronic skin changes. Both legs are wrapped PARTS ANALYST exam grossly intact - Labs CBC & Chem 7: 06/24/23 04:13 06/28/23 06:51 Labs: Abnormal Lab Results - Last 24 Hours (Table) 06/28/23 06/29/23 06/29/23 Range/Units 18:56 05:42 11:28 POC Glucose (mg/dL) 230 H 121 H 162 H (70-110) mg/dL Assessment and Plan Assessment: 1. Acute kidney injury secondary to ATN secondary to cardiorenal syndrome. Creatinine 1.7-2.3 from last admission. No hydronephrosis noted on ultrasound on 05/16/2023. Trace protein on UA. Renal function worsened this admission with creatinine up to 6.46 dated 06/22/2023. Also low urine output. Started on hemodialysis 06/22/2023. Has left femoral catheter. 2. Chronic kidney disease stage IIIa secondary to diabetic kidney disease and cardiorenal syndrome. Creatinine 1.4 dated 06/03/2023 but 1.7-2.3 from last admission. 3. Volume overload. Improving with ultrafiltration. 4. Acute on chronic systolic CHF with ejection fraction of less than 20% with moderate to severe mitral regurgitation, moderate tricuspid regurgitation and severe pulmonary hypertension. 5. Diabetes mellitus. 6. Metabolic acidosis secondary to acute kidney injury. On oral bicarb. 7. Right lower extremity wound with concern for osteomyelitis. Vascular renaldo alpesh following. Patient refusing amputation. Plan: Continue with hemodialysis. Next treatment on 07/01/2023 To be set up for outpatient hemodialysis.
--- NOTE | 2023-06-29 11:53 | P.PN ---
Subjective Progress Note Date: 06/29/23 Patient remains on the medical floor, monitored closely by multiple consultations. He remains in acute renal failure and has been started on hemodialysis, will undergo HD today. Nephrology following closely. His mentation is improved slightly today, he is requesting pain medication, states he is in severe pain. Narcotics were discontinued as patient did have to be narcaned prior. He remains on IV daptomycin and IV zosyn for positive wound cultures of the right foot wound which is showing MRSA. Additionally there is ivet. Blood culture is negative. Patient has agreed to surgical amputation however there was conflicting information as his spouse does not want the amputation. Patient has been agreeing to this amputation since last week. White count 12.40. Creatinine 4.8. 06/26/2023 Patient evaluated today during hemodialysis. He remains undecided about amputation. He states he wants it, knows he needs it than changes his mind. Patients additionally does not want the amputation. He was re-evaluated by psychiatry and deemed competent. Vascular Dr. Hand has signed off as patient keeps refusing the surgery when it is scheduled. Patient will continue on IV antibiotics and need to follow up with Dr. Kaur outpatient for further discussion regarding amputation. He is on IV zosyn IV daptomycin. cultures are showing MRSA. Creatinine 2.8 today. 06/27/2023 Patient evaluated resting in bed during hemodialysis. He has decided against amputation will need to see vascular on an outpatient basis. Remains on IV antibiotics, ID following closely. Patient has no acute complaints. Creatinine is further improved to 1.5. Liver enzymes are improving also. 06/28/2023 Patient continues on hemodialysis set up for outpatient chair time at //[facility]. Patient will be discharging to [facility] facility which cannot accomodate this patient until Saturday. Amputation has been cancelled this hospital stay. PICC line in place for IV antibiotics to continue in the outpatie nt setting. Local wound care to continue. Patients mentation waxing and waning today he is alert x 3 although confused at times and forgetful. He had fallen twice yesterday apparently due to getting up by himself. 06/29/2023 Patient is evaluated today resting in bed. No complaints more awake alert than yesterday. Does have sitter at bedside due to frequent falls and patient not compliant with call light use etc. He continues on hemodialysis per nephrology. Labs unavailable from today. He continues on IV antibiotics. Review of Systems Constitutional: Reports fatigue. denied any fever. Cardio vascular: denied any chest pain, palpitations Gastrointestinal: denied any nausea, vomiting, diarrhea Pulmonary: Denied any shortness of breath cough Neurologic denied any new focal deficits Reports weakness and pain. All inpatient medications were reviewed and appropriate changes in these medic ations as dictated in the interval history and assessment and plan. PHYSICAL EXAMINATION: GENERAL: The patient is alert and oriented x3, not in any acute distress. Well developed, well nourished. HEENT: Pupils are round and equally reacting to light. EOMI. No scleral icterus. No conjunctival pallor. Normocephalic, atraumatic. No pharyngeal erythema. No thyromegaly. CARDIOVASCULAR: S1 and S2 present. No murmurs, rubs, or gallops. PULMONARY: Diminished. ABDOMEN: Soft, nontender, nondistended, normoactive bowel sounds. No palpable organomegaly. MUSCULOSKELETAL: No joint swelling or deformity. EXTREMITIES: No cyanosis, clubbing, or pedal edema. +1 edema and erythema lower extremity. Has temporary dialysis catheter in place. NEUROLOGICAL: Gross neurological examination did not reveal any focal deficits. Weakness. SKIN: No rashes. Dressing intact to bilateral wounds. Erythema and swelling to the right lower extremity. Assessment -Acute on chronic congestive heart failure nonischemic cardiomyopathy/systolic dysfunction EF less than 20% -Acute on chronic recurrent right lower leg cellulitis -infected right heel diabetic ulcer with prior history of debridement. Culture showing MRSA. Nonhealing. No amputation planned this admission. -Acute kidney injury likely ATN from cardiorenal syndrome, worsening renal function patient has been started on hemodialysis -Transaminitis likely from hepatic congestion improving with dialysis. -Lower extremity chronic venous insufficiency -Hx of COPD -Diabetes mellitus type 2 chronically on insulin, uncontrolled with hypoglycemia -Hyperlipidemia -Chronic kidney disease stage III from diabetic nephropathy and nephrosclerosis -Altered mental status due to acute metabolic and toxic encephalopathy from ANGY, medication affect -Hyperkalemia from the ANGY -moderate to severe MR/moderate TR and severe pulmonary hypertension -Chronic low back pain. -Hypotension maintained on midodrine -Obstructive sleep apnea sometimes uses CPAP machine -Diabetic peripheral neuropathy -Anxiety -DJD -AICD -Lower extremity chronic venous insufficiency GI prophylaxis DVT prophylaxis Full Code Plan Continue on IV antibiotics, ID following. Local wound care to bilateral lower extremities to continue Patient and not completely decided on amputation which has now been cancelled. Patient will need to follow up with Dr. Kaur on discharge who will continue to see patient in the wound clinic on discharge. Continues on hemodialysis Nephrology following closely patient is set up for chair time Tu/[facility]/Sat for discharge and now has permacath to the right chest wall. Discharge to [facility] facility when ready they cannot accommodate until saturday at the earliest. [place] for pain management, avoid narcotics if possible. Psychiatry following, cymbalta has been discontinued. Patient medically competent to make own decisions per psychology. Monitor liver function, enzymes improving. Cardiology has given surgical clearance for amputation Recommend AM labs The impression and plan of care has been dictated by Fozia Lopez, Nurse Practitioner as directed. Dr. Megan MD I have performed a history and physical examination and medical decision making of this patient, discussed the same with the dictator, and agree with the dictators assessment and plan as written, documented as a scribe. Based on total visit time, I have performed more than 50% of this visit. Objective - Vital Signs Vital signs: Vital Signs Temp 97.8 F 06/29/23 08:13 Pulse 88 06/29/23 09:38 Resp 20 06/29/23 08:13 BP 104/71 06/29/23 08:13 Pulse Ox 99 06/29/23 08:13 FiO2 Intake & Output 06/28/23 06/29/23 06/29/23 18:59 06:59 18:59 Intake Total 620 480 Output Total 2801 110 Balance -2181 370 Weight 102 kg Intake: IV 120 0.9 120 Oral 480 Hemodialysis 500 Output: Urine 301 110 Hemodialysis 2500 Other: Voiding Method Indwelling Catheter Indwelling Catheter # Voids 0 1 - Labs CBC & Chem 7: 06/24/23 04:13 06/28/23 06:51 Labs: Abnormal Lab Results - Last 24 Hours (Table) 06/28/23 06/29/23 06/29/23 Range/Units 18:56 05:42 11:28 POC Glucose (mg/dL) 230 H 121 H 162 H (70-110) mg/dL Assessment and Plan Time with Patient: Less than 30
[2023-06-29 14:30] LABS: Anisocytosis Slight; Basophils % (A) 0 %; Eosinophils # (A) 0.2 k/uL (0-0.7); Eosinophils % (A) 2 %; HCT 38.2 % (39.0-53.0); HGB 12.3 gm/dL (13.0-17.5); Hypochromasia Marked; Lymphocytes % (A) 10 %; MCH 29.4 pg (25.0-35.0); MCHC 32.2 g/dL (31.0-37.0); MCV 91.4 fL (80.0-100.0); Mean Platelet Volume 10.8; Monocytes # (A) 1.2 k/uL (0-1.0); Monocytes % (A) 12 %; Neutrophils # (A) 7.5 k/uL (1.3-7.7); Neutrophils % (A) 74 %; Poikilocytosis Slight; RBC 4.18 m/uL (4.30-5.90); RDW 16.6 % (11.5-15.5); WBC 10.2 k/uL (3.8-10.6)
[2023-06-29 14:46] LABS: Platelet Count 113 k/uL (150-450)
[2023-06-29 16:55] LABS: Glucose,Whole Blood 65 mg/dL (70-110)
[2023-06-29 20:04] LABS: Glucose,Whole Blood 72 mg/dL (70-110)
[2023-06-29] MEDS: MELATONIN 5 MG TABLET PO SCH (21:01)
[2023-06-29] MEDS: traZODone HCL 50 MG TAB PO PRN (21:02)
[2023-06-29 23:06] LABS: BUN/Creat Ratio 8.74 Ratio (12.00-20.00); Blood Urea Nitrogen 16.6 mg/dL (9.0-27.0); Calcium 8.6 mg/dL (8.7-10.3); Carbon Dioxide 24.6 mmol/L (21.6-31.8); Chloride 101 mmol/L (96-109); Glucose 93 mg/dL (70-110); Magnesium 1.9 mg/dL (1.5-2.4); Potassium 3.5 mmol/L (3.5-5.5); Sodium 138 mmol/L (135-145)
[2023-06-30] MEDS: OLANZapine 5 MG TAB PO PRN ×2 (00:09→10:55)
[2023-06-30 06:13] LABS: Glucose,Whole Blood 108 mg/dL (70-110)
[2023-06-30] MEDS: INSULIN ASPART (NovoLOG) 100 UNIT/ML VIAL SQ SCH ×4 (06:14→20:10)
[2023-06-30] MEDS: INSULIN DETEMIR (LEVEMIR) 100 UNIT/ML SYR SQ SCH (06:25)
[2023-06-30] MEDS: MIDODRINE 5 MG TAB PO SCH ×3 (06:25→17:10)
[2023-06-30] MEDS: LIDOCAINE 4% PATCH TOPICAL SCH (08:52)
[2023-06-30] MEDS: ASPIRIN 81 MG PO SCH (08:53)
[2023-06-30] MEDS: HEPARIN SODIUM,PORCINE 5,000 UNIT/ML 1 ML VIAL SQ SCH ×3 (08:53→23:59)
[2023-06-30] MEDS: METOPROLOL SUCCINATE (ER) 25 MG TAB.ER.24H PO SCH (08:53)
[2023-06-30] MEDS: FAMOTIDINE 20 MG TAB PO SCH (08:53)
[2023-06-30] MEDS: NICOTINE 14MG/24HR PATCH TRANSDERM SCH (08:53)
[2023-06-30] MEDS: SODIUM BICARBONATE TAB 650 MG TAB PO SCH ×2 (08:53→21:21)
[2023-06-30] MEDS: TORSEMIDE 20 MG TAB PO SCH (08:53)
[2023-06-30] MEDS: DULoxetine HCL 30 MG CAPSULE.DR PO SCH (08:54)
[2023-06-30] MEDS: IPRATROPIUM-ALBUTEROL 3 ML NEB INHALATION SCH ×4 (09:08→21:07)
--- NOTE | 2023-06-30 11:10 | P.PN ---
Subjective Progress Note Date: 06/30/23 Patient remains on the medical floor, monitored closely by multiple consultations. He remains in acute renal failure and has been started on hemodialysis, will undergo HD today. Nephrology following closely. His mentation is improved slightly today, he is requesting pain medication, states he is in severe pain. Narcotics were discontinued as patient did have to be narcaned prior. He remains on IV daptomycin and IV zosyn for positive wound cultures of the right foot wound which is showing MRSA. Additionally there is ivet. Blood culture is negative. Patient has agreed to surgical amputation however there was conflicting information as his spouse does not want the amputation. Patient has been agreeing to this amputation since last week. White count 12.40. Creatinine 4.8. 06/26/2023 Patient evaluated today during hemodialysis. He remains undecided about amputation. He states he wants it, knows he needs it than changes his mind. Patients additionally does not want the amputation. He was re-evaluated by psychiatry and deemed competent. Vascular Dr. Hand has signed off as patient keeps refusing the surgery when it is scheduled. Patient will continue on IV antibiotics and need to follow up with Dr. Kaur outpatient for further discussion regarding amputation. He is on IV zosyn IV daptomycin. cultures are showing MRSA. Creatinine 2.8 today. 06/27/2023 Patient evaluated resting in bed during hemodialysis. He has decided against amputation will need to see vascular on an outpatient basis. Remains on IV antibiotics, ID following closely. Patient has no acute complaints. Creatinine is further improved to 1.5. Liver enzymes are improving also. 06/28/2023 Patient continues on hemodialysis set up for outpatient chair time at [facility]. Patient will be discharging to [facility] facility which cannot accomodate this patient until Saturday. Amputation has been cancelled this hospital stay. PICC line in place for IV antibiotics to continue in the outpatie nt setting. Local wound care to continue. Patients mentation waxing and waning today he is alert x 3 although confused at times and forgetful. He had fallen twice yesterday apparently due to getting up by himself. 06/29/2023 Patient is evaluated today resting in bed. No complaints more awake alert than yesterday. Does have sitter at bedside due to frequent falls and patient not compliant with call light use etc. He continues on hemodialysis per nephrology. Labs unavailable from today. He continues on IV antibiotics. 06/30/2023 Patient evaluated today sitting up on edge of bed states he slept well last night. Alert and oriented. Sitter at bedside. Continues on hemodialyis. Creatinine 1.9 yesterday. Remains on IV daptomycin for MRSA in the right foot wound. He has refused amputation plan is for [facility] tomorrow and to follow up with Dr. Kaur in the wound center. Patient needs to get PICC line which will be tomorrow, he has chair time set up for outpatient HD. Review of Systems Constitutional: Reports fatigue. denied any fever. Cardio vascular: denied any chest pain, palpitations Gastrointestinal: denied any nausea, vomiting, diarrhea Pulmonary: Denied any shortness of breath cough Neurologic denied any new focal deficits Reports weakness and pain. All inpatient medications were reviewed and appropriate changes in these medications as dictated in the interval history and assessment and plan. PHYSICAL EXAMINATION: GENERAL: The patient is alert and oriented x3, not in any acute distress. Well developed, well nourished. HEENT: Pupils are round and equally reacting to light. EOMI. No scleral icterus. No conjunctival pallor. Normocephalic, atraumatic. No pharyngeal erythema. No thyromegaly. CARDIOVASCULAR: S1 and S2 present. No murmurs, rubs, or gallops. PULMONARY: Diminished. ABDOMEN: Soft, nontender, nondistended, normoactive bowel sounds. No palpable organomegaly. MUSCULOSKELETAL: No joint swelling or deformity. EXTREMITIES: No cyanosis, clubbing, or pedal edema. +1 edema and erythema lower extremity. Has temporary dialysis catheter in place. NEUROLOGICAL: Gross neurological examination did not reveal any focal deficits. Weakness. SKIN: No rashes. Dressing intact to bilateral wounds. Erythema and swelling to the right lower extremity. Assessment -Acute on chronic congestive heart failure nonischemic cardiomyopathy/systolic dysfunction EF less than 20% -Acute on chronic recurrent right lower leg cellulitis -infected right heel diabetic ulcer with prior history of debridement. Culture showing MRSA. Nonhealing. No amputation planned this admission. -Acute kidney injury likely ATN from cardiorenal syndrome, worsening renal function patient has been started on hemodialysis -Transaminitis likely from hepatic congestion improving with dialysis. -Lower extremity chronic venous insufficiency -Hx of COPD -Diabetes mellitus type 2 chronically on insulin, uncontrolled with hypoglycemia -Hyperlipidemia -Chronic kidney disease stage III from diabetic nephropathy and nephrosclerosis -Altered mental status due to acute metabolic and toxic encephalopathy from ANGY, medication affect -Hyperkalemia from the ANGY -moderate to severe MR/moderate TR and severe pulmonary hypertension -Chronic low back pain. -Hypotension maintained on midodrine -Obstructive sleep apnea sometimes uses CPAP machine -Diabetic peripheral neuropathy -Anxiety -DJD -AICD -Lower extremity chronic venous insufficiency GI prophylaxis DVT prophylaxis Full Code Plan Continue on IV antibiotics, ID following. Local wound care to bilateral lower extremities to continue Patient and not completely decided on amputation which has now been ca ncelled. Patient will need to follow up with Dr. Kaur on discharge who will continue to see patient in the wound clinic on discharge. Continues on hemodialysis Nephrology following closely patient is set up for chair time /[place]/Sat for discharge and now has permacath to the right chest wall. Discharge to [facility] facility when ready they cannot accommodate until saturday at the earliest. [place] for pain management, avoid narcotics if possible. Psychiatry following, cymbalta has been discontinued. Patient medically competent to make own decisions per psychology. Monitor liver function, enzymes improving. Cardiology has given surgical clearance for amputation Recommend AM labs The impression and plan of care has been dictated by Fozia Lopez, Nurse Practitioner as directed. Dr. Megan MD I have performed a history and physical examination and medical decision making of this patient, discussed the same with the dictator, and agree with the dictators assessment and plan as written, documented as a scribe. Based on total visit time, I have performed more than 50% of this visit. Objective - Vital Signs Vital signs: Vital Signs Temp 98.4 F 06/30/23 08:06 Pulse 115 H 06/30/23 08:06 Resp 19 06/30/23 08:06 BP 109/70 06/30/23 08:06 Pulse Ox 98 06/30/23 08:06 FiO2 Intake & Output 06/29/23 06/30/23 06/30/23 18:59 06:59 18:59 Intake Total 480 Balance 480 Weight 102 kg Intake: Oral 480 Other: Voiding Method Indwelling Catheter Indwelling Catheter Indwelling Catheter # Voids 3 - Labs CBC & Chem 7: 06/29/23 14:05 06/29/23 14:05 Labs: Abnormal Lab Results - Last 24 Hours (Table) 06/29/23 06/29/23 06/29/23 Range/Units 11:28 14:05 14:05 RBC 4.18 L (4.30-5.90) m/uL Hgb 12.3 L (13.0-17.5) gm/dL Hct 38.2 L (39.0-53.0) % RDW 16.6 H (11.5-15.5) % Plt Count 113 L D (150-450) k/uL Monocytes # 1.2 H (0-1.0) k/uL Anion Gap 12.40 H (4.00-12.00) mmol/L Creatinine 1.9 H (0.6-1.5) mg/dL Est GFR (CKD-EPI) 41 L (>=60) BUN/Creatinine Ratio 8.74 L (12.00-20.00) Ratio POC Glucose (mg/dL) 162 H (70-110) mg/dL Calcium 8.6 L (8.7-10.3) mg/dL 06/29/23 Range/Units 16:53 RBC (4.30-5.90) m/uL Hgb (13.0-17.5) gm/dL Hct (39.0-53.0) % RDW (11.5-15.5) % Plt Count (150-450) k/uL Monocytes # (0-1.0) k/uL Anion Gap (4.00-12.00) mmol/L Creatinine (0.6-1.5) mg/dL Est GFR (CKD-EPI) (>=60) BUN/Creatinine Ratio (12.00-20.00) Ratio POC Glucose (mg/dL) 65 L (70-110) mg/dL Calcium (8.7-10.3) mg/dL Assessment and Plan Time with Patient: Less than 30
[2023-06-30 11:40] LABS: Glucose,Whole Blood 110 mg/dL (70-110)
--- NOTE | 2023-06-30 12:01 | P.PN ---
Subjective Patient is seen for follow-up for acute kidney injury and top of chronic kidney disease with previous episodes of acute kidney injury during his last hospitalization. Admitted this time with shortness of breath and volume overload. Patient has been started on hemodialysis this admission on 06/22/2023. Status post hemodialysis yesterday. Patient tolerated treatment well. Objective - Vital Signs Vital signs: Vital Signs Temp 98.4 F 06/30/23 08:06 Pulse 115 H 06/30/23 08:06 Resp 19 06/30/23 08:06 BP 109/70 06/30/23 08:06 Pulse Ox 98 06/30/23 08:06 FiO2 Intake & Output 06/29/23 06/30/23 06/30/23 18:59 06:59 18:59 Intake Total 480 Balance 480 Weight 102 kg Intake: Oral 480 Other: Voiding Method Indwelling Catheter Indwelling Catheter Indwelling Catheter # Voids 3 - Exam Patient is awake, comfortable, no acute distress Examination of the heart S1 and S2 Examination of the lungs shows decreased breath sounds at the bases Examination lower extremities shows 2-3+ edema bilaterally with chronic skin changes. Both legs are wrapped WATER RESOURCE CONSULTANT exam grossly intact - Labs CBC & Chem 7: 06/29/23 14:05 06/29/23 14:05 Labs: Abnormal Lab Results - Last 24 Hours (Table) 06/29/23 06/29/23 06/29/23 Range/Units 14:05 14:05 16:53 RBC 4.18 L (4.30-5.90) m/uL Hgb 12.3 L (13.0-17.5) gm/dL Hct 38.2 L (39.0-53.0) % RDW 16.6 H (11.5-15.5) % Plt Count 113 L D (150-450) k/uL Monocytes # 1.2 H (0-1.0) k/uL Anion Gap 12.40 H (4.00-12.00) mmol/L Creatinine 1.9 H (0.6-1.5) mg/dL Est GFR (CKD-EPI) 41 L (>=60) BUN/Creatinine Ratio 8.74 L (12.00-20.00) Ratio POC Glucose (mg/dL) 65 L (70-110) mg/dL Calcium 8.6 L (8.7-10.3) mg/dL Assessment and Plan Assessment: 1. Acute kidney injury secondary to ATN secondary to cardiorenal syndrome. Creatinine 1.7-2.3 from last admission. No hydronephrosis noted on ultrasound on 05/16/2023. Trace protein on UA. Renal function worsened this admission with creatinine up to 6.46 dated 06/22/2023. Also low urine output. Started on hemodialysis 06/22/2023. Has left femoral catheter. 2. Chronic kidney disease stage IIIa secondary to diabetic kidney disease and cardiorenal syndrome. Creatinine 1.4 dated 06/03/2023 but 1.7-2.3 from last admission. 3. Volume overload. Improving with ultrafiltration. 4. Acute on chronic systolic CHF with ejection fraction of less than 20% with moderate to severe mitral regurgitation, moderate tricuspid regurgitation and severe pulmonary hypertension. 5. Diabetes mellitus. 6. Metabolic acidosis secondary to acute kidney injury. On oral bicarb. 7. Right lower extremity wound with concern for osteomyelitis. Vascular surgery following. Patient refusing amputation. Plan: Continue with hemodialysis. Next treatment on 07/01/2023. Patient will need IJ permacath Needs to be set up for outpatient hemodialysis.
[2023-06-30] MEDS: HYDROcodone/APAP 5-325MG 1 EACH TAB PO PRN ×2 (13:54→23:31)
--- NOTE | 2023-06-30 15:02 | P.PN ---
Subjective Progress Note Date: 06/29/23 Principal diagnosis: Reason for follow-up is right heel diabetic foot infection and osteomyelitis Patient is a 53-year-old male with a past medical history significant for diabetes mellitus hyperlipidemia hypertension [place] history of diabetic foot infection with a chronic nonhealing wound to the right heel area and underlying osteomyelitis with a previous culture positive for Proteus Acinetobacter providencia and anaerobes, presented to hospital with chest pain shortness of breath and some mental status changes, patient did have worsening of his kidney function requiring dialysis catheter placement and has been started on dialysis On today's evaluation that is 06/29/2023 the patient continues to be afebrile, the patient is breathing comfortably on room air and denies any shortness of breath, the patient denies chest pain or cough, patient denies abdominal pain, no nausea/vomiting or diarrhea., The patient pain to the right heel wound area is currently controlled The patient white count is 10.2, creatinine 1.9 Objective - Vital Signs Vital signs: Vital Signs Temp 97.8 F 06/29/23 08:13 Pulse 88 06/29/23 12:50 Resp 20 06/29/23 08:13 BP 104/71 06/29/23 08:13 Pulse Ox 99 06/29/23 08:13 FiO2 Intake & Output 06/28/23 06/29/23 06/29/23 18:59 06:59 18:59 Intake Total 620 480 Output Total 2801 110 Balance -2181 370 Weight 102 kg Intake: IV 120 0.9 120 Oral 480 Hemodialysis 500 Output: Urine 301 110 Hemodialysis 2500 Other: Voiding Method Indwelling Catheter Indwelling Catheter Indwelling Catheter # Voids 0 1 - Exam GENERAL DESCRIPTION: A middle-age male up in bed in no distress RESPIRATORY SYSTEM: Unlabored breathing , clear to auscultation anteriorly HEART: S1 S2 regular rate and rhythm , ABDOMEN: Soft , no tenderness EXTREMITIES: Right heel wound is currently dressed no drainage - Labs CBC & Chem 7: 06/29/23 14:05 06/29/23 14:05 Labs: Abnormal Lab Results - Last 24 Hours (Table) 06/28/23 06/29/23 06/29/23 Range/Units 18:56 05:42 11:28 POC Glucose (mg/dL) 230 H 121 H 162 H (70-110) mg/dL Assessment and Plan (1) Wound of foot Current Visit: Yes Status: Acute Code(s): S91.309A - UNSPECIFIED OPEN WOUND, UNSPECIFIED FOOT, INITIAL ENCOUNTER SNOMED Code(s): 190962928 (2) Foot osteomyelitis, right Current Visit: No Status: Acute Code(s): M86.9 - OSTEOMYELITIS, UNSPECIFIED SNOMED Code(s): 0744639646203839 Plan: 1patient with the right heel diabetic foot infection with underlying osteomyelitis in this patient cultures were predominantly positive for gram- negative including Proteus Providencia Streptococcus and anaerobes , Culture done this admission has been positive for MRSA 2patient did have worsening of his kidney function and the patient be started on dialysis with the patient has been tolerating 3patient to continue with Zosyn and daptomycin patient benefit from amputation which he initially agreed to but now is refusing, vascular surgery has signed off, patient is a high risk of failure of his medical treatment as the patient has been on antibiotic for almost 2 months now in my clinical opinion amputation of the best option for the patient at this point however the patient continued to refuse amputation 4- patient will continue with the Zosyn and daptomycin for another few weeks as a clinical response Dictation was produced using [facility] dictation software. please excuse any grammatical, word or spelling errors. Time with Patient: Less than 30
--- NOTE | 2023-06-30 15:03 | P.PN ---
Subjective Progress Note Date: 06/30/23 Principal diagnosis: Reason for follow-up is right heel diabetic foot infection and osteomyelitis Patient is a 53-year-old male with a past medical history significant for diabetes mellitus hyperlipidemia hypertension [place] history of diabetic foot infection with a chronic nonhealing wound to the right heel area and underlying osteomyelitis with a previous culture positive for Proteus Acinetobacter providencia and anaerobes, presented to hospital with chest pain shortness of breath and some mental status changes, patient did have worsening of his kidney function requiring dialysis catheter placement and has been started on dialysis On today's evaluation that is 06/30/2023 the patient denies any fever or any chills, the patient denies shortness of breath chest pain or cough, the patient nausea/vomiting or diarrhea and no abdominal pain. The patient pain to the right heel wound area is currently controlled The patient white count is 10.2, creatinine 1.9 as of 06/29/2023 Objective - Vital Signs Vital signs: Vital Signs Temp 97.6 F 06/30/23 13:30 Pulse 63 06/30/23 13:30 Resp 20 06/30/23 13:30 BP 102/73 06/30/23 13:30 Pulse Ox 96 06/30/23 13:30 FiO2 Intake & Output 06/29/23 06/30/23 06/30/23 18:59 06:59 18:59 Intake Total 480 Balance 480 Weight 102 kg Intake: Oral 480 Other: Voiding Method Indwelling Catheter Indwelling Catheter Indwelling Catheter # Voids 3 - Exam GENERAL DESCRIPTION: A middle-age male up in bed in no distress RESPIRATORY SYSTEM: Unlabored breathing , clear to auscultation anteriorly HEART: S1 S2 regular rate and rhythm , ABDOMEN: Soft , no tenderness EXTREMITIES: Right heel wound is currently dressed no drainage - Labs CBC & Chem 7: 06/29/23 14:05 06/29/23 14:05 Labs: Abnormal Lab Results - Last 24 Hours (Table) 06/29/23 06/29/23 Range/Units 14:05 16:53 Anion Gap 12.40 H (4.00-12.00) mmol/L Creatinine 1.9 H (0.6-1.5) mg/dL Est GFR (CKD-EPI) 41 L (>=60) BUN/Creatinine Ratio 8.74 L (12.00-20.00) Ratio POC Glucose (mg/dL) 65 L (70-110) mg/dL Calcium 8.6 L (8.7-10.3) mg/dL Assessment and Plan (1) Wound of foot Current Visit: Yes Status: Acute Code(s): S91.309A - UNSPECIFIED OPEN WOUND, UNSPECIFIED FOOT, INITIAL ENCOUNTER SNOMED Code(s): 530472583 (2) Foot osteomyelitis, right Current Visit: No Status: Acute Code(s): M86.9 - OSTEOMYELITIS, UNSPECIFIED SNOMED Code(s): 0614343158248845 Plan: 1patient with the right heel diabetic foot infection with underlying osteomyelitis in this patient cultures were predominantly positive for gram- negative including Proteus Providencia Streptococcus and anaerobes , Culture done this admission has been positive for MRSA 2patient did have worsening of his kidney function and the patient be started on dialysis with the patient has been tolerating 3patient to continue with Zosyn and daptomycin patient benefit from amputation which he initially agreed to but now is refusing, vascular surgery has signed off, patient is a high risk of failure of his medical treatment as the patient has been on antibiotic for almost 2 months now in my clinical opinion amputation of the best option for the patient at this point however the patient continued to refuse amputation 4- patient will continue with the Zosyn and daptomycin for another few weeks on discharge and close outpatient follow-up Dictation was produced using [employer] dictation software. please excuse any grammatical, word or spelling errors. Time with Patient: Less than 30
[2023-06-30 16:49] LABS: Glucose,Whole Blood 40 mg/dL (70-110)
[2023-06-30] MEDS: DEXTROSE 50% SYRINGE 50 ML IVP PRN (16:50)
[2023-06-30] MEDS: PIPERACILLIN-TAZOBACTAM 3.375 GM in SODIUM CHLORIDE 0.9% 100 ML IVPB SCH (17:10)
[2023-06-30 17:11] LABS: Glucose,Whole Blood 347 mg/dL (70-110)
[2023-06-30 20:08] LABS: Glucose,Whole Blood 68 mg/dL (70-110)
[2023-06-30 20:27] LABS: Glucose,Whole Blood 104 mg/dL (70-110)
[2023-06-30] MEDS: MELATONIN 5 MG TABLET PO SCH (21:21)
[2023-07-01] MEDS: OLANZapine 5 MG TAB PO PRN ×2 (00:02→10:30)
[2023-07-01] MEDS: traZODone HCL 50 MG TAB PO PRN (00:42)
[2023-07-01] MEDS: PIPERACILLIN-TAZOBACTAM 3.375 GM in SODIUM CHLORIDE 0.9% 100 ML IVPB SCH ×2 (03:13→15:11)
[2023-07-01] MEDS: HYDROcodone/APAP 5-325MG 1 EACH TAB PO PRN ×3 (04:59→22:09)
[2023-07-01] MEDS: ACETAMINOPHEN TAB 325 MG TAB PO PRN ×2 (05:55→15:09)
[2023-07-01 05:57] LABS: Glucose,Whole Blood 154 mg/dL (70-110)
[2023-07-01] MEDS: INSULIN DETEMIR (LEVEMIR) 100 UNIT/ML SYR SQ SCH (06:03)
[2023-07-01] MEDS: MIDODRINE 5 MG TAB PO SCH ×3 (06:04→18:02)
[2023-07-01] MEDS: INSULIN ASPART (NovoLOG) 100 UNIT/ML VIAL SQ SCH ×4 (06:04→22:11)
[2023-07-01] MEDS: HEPARIN SODIUM,PORCINE 5,000 UNIT/ML 1 ML VIAL SQ SCH ×3 (08:26→23:08)
[2023-07-01] MEDS: NICOTINE 14MG/24HR PATCH TRANSDERM SCH (08:27)
[2023-07-01] MEDS: TORSEMIDE 20 MG TAB PO SCH (08:27)
[2023-07-01] MEDS: METOPROLOL SUCCINATE (ER) 25 MG TAB.ER.24H PO SCH (08:27)
[2023-07-01] MEDS: ASPIRIN 81 MG PO SCH (08:27)
[2023-07-01] MEDS: LIDOCAINE 4% PATCH TOPICAL SCH (08:27)
[2023-07-01] MEDS: FAMOTIDINE 20 MG TAB PO SCH (08:27)
[2023-07-01] MEDS: DULoxetine HCL 30 MG CAPSULE.DR PO SCH (08:27)
[2023-07-01] MEDS: SODIUM BICARBONATE TAB 650 MG TAB PO SCH ×2 (08:27→22:10)
[2023-07-01 08:39] LABS: Basophils # (A) 0.08 X 10*3/uL (0.00-0.10); Basophils % (A) 0.9 %; Eosinophils # (A) 0.33 X 10*3/uL (0.04-0.35); Eosinophils % (A) 3.6 %; HCT 37.5 % (39.6-50.0); HGB 11.3 g/dL (13.0-17.0); Lymphocytes # (A) 1.25 X 10*3/uL (0.90-5.00); Lymphocytes % (A) 13.8 %; MCH 26.8 pg (27.0-32.0); MCHC 30.1 g/dL (32.0-37.0); MCV 89.1 FL (80.0-97.0); Mean Platelet Volume 11.6 FL (9.5-12.2); Monocytes # (A) 1.09 X 10*3/uL (0.20-1.00); NRBC Per 100 WBC 0 X 10*3/uL (0.00-0.01); Neutrophils # (A) 6.29 X 10*3/uL (1.80-7.70); Neutrophils % (A) 69.4 %; Platelet Count 147 X 10*3/uL (140-440); RBC 4.21 X 10*6/uL (4.40-5.60); RDW 18.6 % (11.5-14.5); WBC 9.07 X 10*3/uL (4.50-10.00)
[2023-07-01 09:36] LABS: BUN/Creat Ratio 13.25 Ratio (12.00-20.00); Blood Urea Nitrogen 26.5 mg/dL (9.0-27.0); Calcium 8.6 mg/dL (8.7-10.3); Carbon Dioxide 25.5 mmol/L (21.6-31.8); Chloride 99 mmol/L (96-109); Glucose 141 mg/dL (70-110); Potassium 3.7 mmol/L (3.5-5.5); Sodium 138 mmol/L (135-145)
[2023-07-01] MEDS: IPRATROPIUM-ALBUTEROL 3 ML NEB INHALATION SCH ×5 (09:38→21:45)
[2023-07-01 11:32] LABS: Glucose,Whole Blood 197 mg/dL (70-110)
[2023-07-01] MEDS ORDERED: ALPRAZolam 0.25 MG TAB PO STA (14:55)
[2023-07-01] MEDS ORDERED: QUEtiapine 25 MG TAB PO PRN (14:56)
[2023-07-01 16:53] LABS: Glucose,Whole Blood 75 mg/dL (70-110)
--- NOTE | 2023-07-01 19:47 | PN ---
PROGRESS NOTE DATE OF SERVICE: 07/01/2023 SUBJECTIVE: This is a 53-year-old gentleman, who was admitted with CHF acute exacerbation, also had multiple complex medical issues. The patient also had right lower leg cellulitis, which is acute on chronic, and right heel diabetic ulcer also. The cultures showed MRSA from the wound and as well as Laverne from the right foot also. The patient is being closely monitored at this time. PAST MEDICAL HISTORY: Reviewed. REVIEW OF SYSTEMS: Fourteen-point review is negative except as mentioned earlier. CURRENT MEDICATIONS: Reviewed include [facility]. Doses and rest of the medications are noted. PHYSICAL EXAMINATION: VITAL SIGNS: Pulse is 100, blood pressure 92/62, respirations 20. HEENT: Conjunctivae are normal. NECK: No jugular venous distention. CARDIOVASCULAR: S1 and S2 muffled. RESPIRATORY: Breath sounds diminished at the bases. Few scattered rhonchi. ABDOMEN: Soft. LEGS: Cellulitis present. LABORATORY DATA: Creatinine is 2. Rest of the labs are noted. ASSESSMENT: 1. Congestive heart failure acute exacerbation with buhje-rp-osilzop systolic dysfunction, ejection fraction of 20% with nonischemic cardiomyopathy. 2. Nvvsr-ea-vxkuwvq right lower leg cellulitis with methicillin-resistant Staphylococcus aureus. 3. Infected right heel decubitus ulcer. 4. Acute kidney injury and acute tubular necrosis. 5. Chronic obstructive pulmonary disease. 6. Diabetes mellitus, type 2. 7. Kmtcoahe-sj-qsqxmh mitral regurgitation and tricuspid regurgitation. 8. Anxiety. 9. Multiple complex medical issues. RECOMMENDATIONS: Recommend to continue current medical management. Continue symptomatic treatment. Otherwise, we will monitor the creatinine closely. Currently, it is 2, which is rather improving. Recommended LFTs also. We will continue to monitor, IV antibiotics, closely follow with Infectious Disease. PT and OT evaluation. Further recommendations to follow. The most recent chest x-ray, which was reviewed by me, showed significant improvement with some cardiomegaly. MMODL / IJN: [id number] /
[2023-07-01 20:47] LABS: Glucose,Whole Blood 114 mg/dL (70-110)
[2023-07-01] MEDS: MELATONIN 5 MG TABLET PO SCH (22:10)
[2023-07-02] MEDS: OLANZapine 5 MG TAB PO PRN (03:11)
[2023-07-02] MEDS: PIPERACILLIN-TAZOBACTAM 3.375 GM in SODIUM CHLORIDE 0.9% 100 ML IVPB SCH (03:16)
[2023-07-02 05:52] LABS: Glucose,Whole Blood 137 mg/dL (70-110)
[2023-07-02] MEDS: INSULIN ASPART (NovoLOG) 100 UNIT/ML VIAL SQ SCH (06:46)
[2023-07-02] MEDS: MIDODRINE 5 MG TAB PO SCH (06:50)
[2023-07-02] MEDS ORDERED: MIDODRINE 5 MG TAB PO ONE (08:20)
[2023-07-02 08:50] LABS: Basophils % (A) 1.1 %; Eosinophils # (A) 0.38 X 10*3/uL (0.04-0.35); Eosinophils % (A) 4.1 %; HCT 37.2 % (39.6-50.0); HGB 11.3 g/dL (13.0-17.0); Lymphocytes # (A) 1.31 X 10*3/uL (0.90-5.00); Lymphocytes % (A) 14.3 %; MCH 27.2 pg (27.0-32.0); MCHC 30.4 g/dL (32.0-37.0); MCV 89.6 FL (80.0-97.0); Mean Platelet Volume 12.5 FL (9.5-12.2); Monocytes # (A) 1.22 X 10*3/uL (0.20-1.00); Monocytes % (A) 13.3 %; NRBC Per 100 WBC 0 X 10*3/uL (0.00-0.01); Neutrophils # (A) 6.12 X 10*3/uL (1.80-7.70); Neutrophils % (A) 66.9 %; Platelet Count 156 X 10*3/uL (140-440); RBC 4.15 X 10*6/uL (4.40-5.60); RDW 18.6 % (11.5-14.5); WBC 9.16 X 10*3/uL (4.50-10.00)
[2023-07-02] MEDS ORDERED: FOLIC ACID 1 MG TAB PO SCH (09:00)
[2023-07-02] MEDS ORDERED: MULTIVITAMINS, THERA 1 EACH TAB PO SCH (09:00)
[2023-07-02] MEDS: SODIUM BICARBONATE TAB 650 MG TAB PO SCH (09:05)
[2023-07-02] MEDS: ASPIRIN 81 MG PO SCH (09:05)
[2023-07-02] MEDS: LIDOCAINE 4% PATCH TOPICAL SCH (09:06)
[2023-07-02] MEDS: FAMOTIDINE 20 MG TAB PO SCH (09:06)
[2023-07-02] MEDS: HEPARIN SODIUM,PORCINE 5,000 UNIT/ML 1 ML VIAL SQ SCH (09:06)
[2023-07-02] MEDS: TORSEMIDE 20 MG TAB PO SCH (09:07)
[2023-07-02] MEDS: DULoxetine HCL 30 MG CAPSULE.DR PO SCH (09:08)
[2023-07-02] MEDS: INSULIN DETEMIR (LEVEMIR) 100 UNIT/ML SYR SQ SCH (09:11)
[2023-07-02] MEDS: NICOTINE 14MG/24HR PATCH TRANSDERM SCH (09:16)
[2023-07-02] MEDS: METOPROLOL SUCCINATE (ER) 25 MG TAB.ER.24H PO SCH (09:16)
[2023-07-02] MEDS: IPRATROPIUM-ALBUTEROL 3 ML NEB INHALATION SCH ×3 (09:23→15:58)
[2023-07-02] MEDS ORDERED: diphenhydrAMINE 50 MG/ML 1 ML VIAL IVP STA (09:35)
[2023-07-02 10:16] LABS: ALT 66 U/L (10-49); AST 43 U/L (14-35); Albumin 3.7 g/dL (3.8-4.9); Albumin/Globulin Ratio 1.03 Ratio (1.60-3.17); Alkaline Phosphatase 216 U/L (41-126); BUN/Creat Ratio 16.45 Ratio (12.00-20.00); Blood Urea Nitrogen 32.9 mg/dL (9.0-27.0); Calcium 8.7 mg/dL (8.7-10.3); Carbon Dioxide 24.6 mmol/L (21.6-31.8); Chloride 98 mmol/L (96-109); Globulin 3.6 g/dL (1.6-3.3); Glucose 129 mg/dL (70-110); Sodium 136 mmol/L (135-145); Total Bilirubin 1.1 mg/dL (0.3-1.2); Total Protein 7.3 g/dL (6.2-8.2)
[2023-07-02 10:39] VITALS: RESP 20
[2023-07-02] MEDS ORDERED: CEFEPIME 2 GM in SODIUM CHLORIDE 0.9% 100 ML IVPB STA (10:58)
--- NOTE | 2023-07-02 11:34 | P.PN ---
Subjective Patient is seen for follow-up for acute kidney injury and top of chronic kidney disease with previous episodes of acute kidney injury during his last hospitalization. Admitted this time with shortness of breath and volume overload. Patient has been started on hemodialysis this admission on 06/22/2023. Status post hemodialysis yesterday. Patient was quite anxious and did not tolerate his treatment well yesterday. This morning he was restless again and refused to continue. Patient has been combative and currently has a sitter in the room. Objective - Vital Signs Vital signs: Vital Signs Temp 98.0 F 07/02/23 10:32 Pulse 101 H 07/02/23 10:32 Resp 20 07/02/23 10:32 BP 105/57 07/02/23 10:32 Pulse Ox 98 07/02/23 07:35 FiO2 Intake & Output 07/01/23 07/02/23 07/02/23 18:59 06:59 18:59 Intake Total 800 400 Output Total 1400 268 Balance -600 132 Weight 100.1 kg Intake: Intake, IV Titration 100 Amount Piperacillin-Tazobactam 3 100 .375 gm In Sodium Chloride 0.9% 100 ml @ 25 mls/hr IVPB Q12H [facility] Rx# :[id number] Hemodialysis 700 400 Output: Hemodialysis 1400 268 Other: Voiding Method Indwelling Catheter # Voids 2 - Exam Patient is awake, comfortable, no acute distress Examination of the heart S1 and S2 Examination of the lungs shows decreased breath sounds at the bases Examination lower extremities shows 2-3+ edema bilaterally with chronic skin changes. 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 - Labs CBC & Chem 7: 07/02/23 06:01 07/02/23 06:01 Labs: Abnormal Lab Results - Last 24 Hours (Table) 07/01/23 07/01/23 07/02/23 Range/Units 11:30 20:44 05:50 RBC (4.40-5.60) X 10*6/uL Hgb (13.0-17.0) g/dL Hct (39.6-50.0) % MCHC (32.0-37.0) g/dL RDW (11.5-14.5) % MPV (9.5-12.2) FL Monocytes # (0.20-1.00) X 10*3/uL Eosinophils # (0.04-0.35) X 10*3/uL Anion Gap (4.00-12.00) mmol/L BUN (9.0-27.0) mg/dL Creatinine (0.6-1.5) mg/dL Est GFR (CKD-EPI) (>=60) Glucose (70-110) mg/dL POC Glucose (mg/dL) 197 H 114 H 137 H (70-110) mg/dL AST (14-35) U/L ALT (10-49) U/L Alkaline Phosphatase (41-126) U/L Albumin (3.8-4.9) g/dL Globulin (1.6-3.3) g/dL Albumin/Globulin Ratio (1.60-3.17) Ratio 07/02/23 07/02/23 Range/Units 06:01 06:01 RBC 4.15 L (4.40-5.60) X 10*6/uL Hgb 11.3 L (13.0-17.0) g/dL Hct 37.2 L (39.6-50.0) % MCHC 30.4 L (32.0-37.0) g/dL RDW 18.6 H (11.5-14.5) % MPV 12.5 H (9.5-12.2) FL Monocytes # 1.22 H (0.20-1.00) X 10*3/uL Eosinophils # 0.38 H (0.04-0.35) X 10*3/uL Anion Gap 13.40 H (4.00-12.00) mmol/L BUN 32.9 H (9.0-27.0) mg/dL Creatinine 2.0 H (0.6-1.5) mg/dL Est GFR (CKD-EPI) 39 L (>=60) Glucose 129 H (70-110) mg/dL POC Glucose (mg/dL) (70-110) mg/dL AST 43 H (14-35) U/L ALT 66 H (10-49) U/L Alkaline Phosphatase 216 H (41-126) U/L Albumin 3.7 L (3.8-4.9) g/dL Globulin 3.6 H (1.6-3.3) g/dL Albumin/Globulin Ratio 1.03 L (1.60-3.17) Ratio Assessment and Plan Assessment: 1. Acute kidney injury secondary to ATN secondary to cardiorenal syndrome. Creatinine 1.7-2.3 from last admission. No hydronephrosis noted on ultrasound on 05/16/2023. Trace protein on UA. Renal function worsened this admission with creatinine up to 6.46 dated 06/22/2023. Also low urine output. Started on hemodialysis 06/22/2023. Has right IJ catheter. 2. Chronic kidney disease stage IIIa secondary to diabetic kidney disease and cardiorenal syndrome. Creatinine 1.4 dated 06/03/2023 but 1.7-2.3 from last admission. 3. Volume overload. Improving with ultrafiltration. 4. Acute on chronic systolic CHF with ejection fraction of less than 20% with moderate to severe mitral regurgitation, moderate tricuspid regurgitation and severe pulmonary hypertension. 5. Diabetes mellitus. 6. Metabolic acidosis secondary to acute kidney injury. On oral bicarb. 7. Right lower extremity wound with concern for osteomyelitis. Vascular surgery following. Patient refusing amputation. Plan: Continue with hemodialysis as outpatient Okay for discharge today if cleared by ID
[2023-07-02 11:40] LABS: Glucose,Whole Blood 237 mg/dL (70-110)
[2023-07-02 14:15] VITALS: BP 108/76; TEMP 97.8
--- NOTE | 2023-07-02 14:23 | P.DS ---
Providers Date of admission: 06/16/23 14:51 Expected date of discharge: 07/02/23 Attending physician: Buck Johnson Consults: 06/16/23 12:26 Consult Physician Routine Consulting Provider: Yesenia Santoyo Consult Reason/Comments: LE wound Do you want consulting provider notified?: Yes 06/16/23 14:49 Consult Physician Routine Consulting Provider: Martin Kaur Consult Reason/Comments: Foot wound Do you want consulting provider notified?: Yes 06/16/23 14:51 Consult Physician Routine Consulting Provider: Manuel Ozuna Consult Reason/Comments: Renal failure Do you want consulting provider notified?: Yes 06/21/23 14:12 Consult Physician Routine Consulting Provider: Demarco Marquez Consult Reason/Comments: confusion,delusions Do you want consulting provider notified?: Yes 06/22/23 15:29 Consult Physician Routine Consulting Provider: Nick Mancini Consult Reason/Comments: Respiratory failure, apneic spell Do you want consulting provider notified?: Yes Primary care physician: Hany Rodríguez Hospital Course: Final diagnosis -Congestive heart failure acute exacerbation with acute on chronic systolic dysfunction, EF of 20% with nonischemic cardiomyopathy -Acute on chronic right lower leg cellulitis with MRSA -Infected right heel decubitus ulcer -Acute kidney injury and acute tubular necrosis -Chronic obstructive pulmonary disease -Diabetes mellitus, type II -Acute kidney injury likely ATN from cardiorenal syndrome, worsening renal function patient has been started on hemodialysis -Transaminitis likely from hepatic congestion improving with dialysis. -Lower extremity chronic venous insufficiency -Hx of COPD -Diabetes mellitus type 2 chronically on insulin, uncontrolled with hypoglycemia -Hyperlipidemia -Chronic kidney disease stage III from diabetic nephropathy and nephrosclerosis -Altered mental status due to acute metabolic and toxic encephalopathy from ANGY, medication affect -Hyperkalemia from the ANGY -moderate to severe MR/moderate TR and severe pulmonary hypertension -Chronic low back pain. -Hypotension maintained on midodrine -Obstructive sleep apnea sometimes uses CPAP machine -Diabetic peripheral neuropathy -Anxiety -DJD -AICD -Lower extremity chronic venous insufficiency GI prophylaxis DVT prophylaxis Full Code Discharge disposition Patient is being discharged in a stable condition with guarded prognosis to [facility]. Patient will follow-up with Dr. Rodríguez in the outpatient setting upon discharge. Patient is to continue with hemodialysis as scheduled and will continue on antibiotics per ID recommendations with close outpatient follow-up with multiple medical consultations as mentioned below. Patient is to continue with dressing changes to the right and left lower extremity with Aquasol silver, 4 x 4, Kerlix, left christine silver 4 x 4 and Kerlix, right heel honey sheet with 4 x 4 Kerlix per ID recommendations. Close outpatient follow-up with infectious disease in 1-2 weeks. Total time taken is greater than 35 minutes. Hospital course This is a 53-year-old male who was recently admitted with CHF exacerbation also bilateral and more so right lower extremity cellulitis being closely monitored. Patient also with a right heel diabetic ulcer with MRSA growing in the cultures as well as Laverne. and was being closely monitored. Multiple medical consultations following including cardiology as well as infectious disease and wound care, nephrology and patient has been cleared for discharge to [facility] with close outpatient follow-up. Patient will continue on antibiotics in the form of cefepime and daptomycin during dialysis and will continue current regimen of Saturday//Saturday. Patient to follow-up with nephrology outpatient closely. Refer to other consultation notes for further HPI. Currently no reports of chest pain, shortness of breath, or palpitations. Patient is afebrile. No reports of nausea or vomiting and patient is tolerating diet. Patient will be going to [facility] today. Extremely guarded prognosis given significant comorbidities and high risk for readmissions in this complex patient. Physical exam: Gen: This is a 53-year-old male who is awake, alert and oriented 1-2, baseline, well-developed, appears elderly HEENT: Head is atraumatic, normocephalic. Pupils equal, round. Sclerae is anicteric. NECK: Supple. No JVD. No lymphadenopathy. No thyromegaly. LUNGS: Diminished breath sounds bilaterally otherwise Clear to auscultation. No wheezes or rhonchi. No intercostal retractions. HEART: S1, S2 are muffled ABDOMEN: Soft. Bowel sounds are present. No masses. No tenderness. EXTREMITIES: No pedal edema. No calf tenderness. Bilateral lower extremity cellulitis with some redness and dressings to bilateral lower extremity is noted NEUROLOGICAL: Patient is awake, alert and oriented x1-2. Baseline. Cranial nerves 2 through 12 are grossly intact. Diffusely weak Please refer to medication reconciliation sheet for a list of medications. The impression and plan of care has been dictated by Loraine Shearer, Nurse Practitioner as directed. Dr. Jonh MD I have performed a history and examination and MDM of this patient, discussed the same with the dictator, and agree with the dictator's assessment and plan as written ,documented as a scribe. Based on total visit time, I have performed more than 50% of the visit. Patient Condition at Discharge: Stable Plan - Discharge Summary Discharge Rx Participant: Yes New Discharge Prescriptions: New metroNIDAZOLE [Flagyl] 500 mg PO TID #90 tab Cefepime [Maxipime] 2 gm IVP Q48H #12 each Lactulose [Cephulac] 20 gm PO DAILY PRN ml PRN Reason: Constipation DULoxetine HCL [Cymbalta] 30 mg PO DAILY cap traZODone HCL [Desyrel] 50 mg PO HS PRN tab PRN Reason: Insomnia Multivitamins, Thera [Multivitamin (formulary)] 1 each PO DAILY tab HYDROcodone/APAP 5-325MG [[place] 5-325] 1 each PO Q6HR PRN #3 tab PRN Reason: Pain QUEtiapine [SEROquel] 12.5 mg PO BID PRN tab PRN Reason: Agitation Sodium Bicarbonate Tab 650 mg PO BID tab DAPTOmycin [Cubicin] 600 mg IV Q48H #12 each Torsemide [Demadex] 40 mg PO DAILY tab Ipratropium-Albuterol Nebulize [Duoneb 0.5 mg-3 mg/3 ml Soln] 3 ml INHALATION RT-QID each Folic Acid 1 mg PO DAILY tab Heparin Sodium,Porcine (1 ml) [Heparin Sodium] 5,000 unit SQ Q8HR each L.idocaine 4% Patch 1 patch TOPICAL DAILY patch INSULIN ASPART (NovoLOG) [NovoLOG (formulary)] 0 unit SQ ACHS each Famotidine [Pepcid] 20 mg PO DAILY tab Midodrine [ProAmatine] 10 mg PO AC-TID tab fluPHENAZine [Prolixin] 3 mg PO HS tab Acetaminophen Tab [Tylenol] 650 mg PO Q6HR PRN tab PRN Reason: Mild Pain Or Fever > 100.5 Thiamine [Vitamin B-1] 100 mg PO DAILY #30 tablet OLANZapine [ZyPREXA] 5 mg PO TID PRN tab PRN Reason: Agitation Continue Aspirin 81 mg PO DAILY tab Nicotine 14Mg/24Hr Patch [Habitrol] 1 patch TRANSDERM DAILY #14 patch SILVER sulfADIAZINE CREAM [Silvadene Cream] 1 applic TOPICAL BID Insulin Glargine,Hum.rec.anlog [Toujeo Solostar] 28 units SQ DAILY #0 Albuterol Inhaler [Ventolin Hfa Inhaler] 2 puff INHALATION RT-QID PRN PRN Reason: Shortness Of Breath Metoprolol Succinate (ER) [Toprol XL] 25 mg PO DAILY #30 tab Discontinued Morphine Sulfate Ir [MSIR] 30 mg PO QID INSULIN LISPRO (humaLOG) [humaLOG] 5 - 10 unit SQ ACHS PRN PRN Reason: HIGH BLOOD SUGAR DULoxetine HCL [Cymbalta] 60 mg PO BID Zolpidem [Ambien] 10 mg PO HS PRN PRN Reason: Insomnia Cyclobenzaprine [Flexeril] 10 mg PO QID Piperacillin-Tazobactam [Zosyn] 3.375 gm IVPB Q8HR #120 each Potassium Chloride ER [K-Dur 20] 20 meq PO DAILY #30 tab Midodrine [ProAmatine] 5 mg PO AC-TID #100 tab Dapagliflozin Propanediol [Farxiga] 10 mg PO DAILY #30 tab Spironolactone [Aldactone] 25 mg PO DAILY #60 tab Bumetanide [BUMEX] 2 mg PO BID #120 tab Atorvastatin [Lipitor] 40 mg PO DAILY #30 tab Discharge Medication List Albuterol Inhaler [Ventolin Hfa Inhaler] 2 puff INHALATION RT-QID PRN 07/06/22 [History] Aspirin 81 mg PO DAILY tab 05/29/23 [Rx] Nicotine 14Mg/24Hr Patch [Habitrol] 1 patch TRANSDERM DAILY #14 patch 05/29/23 [Rx] SILVER sulfADIAZINE CREAM [Silvadene Cream] 1 applic TOPICAL BID 06/04/23 [History] Insulin Glargine,Hum.rec.anlog [Toujeo Solostar] 28 units SQ DAILY #0 06/10/23 [Rx] Metoprolol Succinate (ER) [Toprol XL] 25 mg PO DAILY #30 tab 06/10/23 [Rx] Acetaminophen Tab [Tylenol] 650 mg PO Q6HR PRN tab 12/05/23 [Rx] Cefepime [Maxipime] 2 gm IVP Q48H #12 each 07/02/23 [Rx] DAPTOmycin [Cubicin] 600 mg IV Q48H #12 each 07/02/23 [Rx] DULoxetine HCL [Cymbalta] 30 mg PO DAILY cap 07/02/23 [Rx] Famotidine [Pepcid] 20 mg PO DAILY tab 07/02/23 [Rx] Folic Acid 1 mg PO DAILY tab 07/02/23 [Rx] HYDROcodone/APAP 5-325MG [[place] 5-325] 1 each PO Q6HR PRN #3 tab 07/02/23 [Rx] Heparin Sodium,Porcine (1 ml) [Heparin Sodium] 5,000 unit SQ Q8HR each 07/02/23 [Rx] INSULIN ASPART (NovoLOG) [NovoLOG (formulary)] 0 unit SQ ACHS each 07/02/23 [Rx] Ipratropium-Albuterol Nebulize [Duoneb 0.5 mg-3 mg/3 ml Soln] 3 ml INHALATION RT-QID each 07/02/23 [Rx] L.idocaine 4% Patch 1 patch TOPICAL DAILY patch 07/02/23 [Rx] Lactulose [Cephulac] 20 gm PO DAILY PRN ml 07/02/23 [Rx] Midodrine [ProAmatine] 10 mg PO AC-TID tab 07/02/23 [Rx] Multivitamins, Thera [Multivitamin (formulary)] 1 each PO DAILY tab 07/02/23 [Rx] OLANZapine [ZyPREXA] 5 mg PO TID PRN tab 07/02/23 [Rx] QUEtiapine [SEROquel] 12.5 mg PO BID PRN tab 07/02/23 [Rx] Sodium Bicarbonate Tab 650 mg PO BID tab 07/02/23 [Rx] Thiamine [Vitamin B-1] 100 mg PO DAILY #30 tablet 07/02/23 [Rx] Torsemide [Demadex] 40 mg PO DAILY tab 07/02/23 [Rx] fluPHENAZine [Prolixin] 3 mg PO HS tab 07/02/23 [Rx] metroNIDAZOLE [Flagyl] 500 mg PO TID #90 tab 07/02/23 [Rx] traZODone HCL [Desyrel] 50 mg PO HS PRN tab 07/02/23 [Rx] Follow up Appointment(s)/Referral(s): Kalani Castellanos MD [STAFF PHYSICIAN] - 07/02/23 10:40 am Hany Rodríguez MD [Primary Care Provider] - 06/25/23 11:00 [facility] [[facility] - As Needed [facility], [REFERRING] - As Needed Martin Kaur MD [STAFF PHYSICIAN] - 06/24/23 2:30 pm (wound center) Yesenia Santoyo MD [STAFF PHYSICIAN] - 06/26/23 3:45 pm Activity/Diet/Wound Care/Special Instructions: Patient is going to [facility] Activity as tolerated Continue with antibiotics during dialysis per ID recommendations Continue with local wound care and recommend elevating lower extremity swelling rest Continue renal diet and consistent carb Monitor Accu-Cheks before meals and at bedtime NovoLog sliding scale 0-150 equals 0 units 151-200 equals 2 units 201-250 equals 4 units 251-300 equals 6 units 301-350 equals 8 units 351-400 equals 10 units Please notify provider if blood sugar is 400 or above Continue local wound care Discharge Disposition: TRANSFER TO SNF/ECF
--- NOTE | 2023-07-02 15:37 | P.PN ---
Subjective Progress Note Date: 07/01/23 Principal diagnosis: Reason for follow-up is right heel diabetic foot infection and osteomyelitis Patient is a 53-year-old male with a past medical history significant for diabetes mellitus hyperlipidemia hypertension MD history of diabetic foot infection with a chronic nonhealing wound to the right heel area and underlying osteomyelitis with a previous culture positive for Proteus Acinetobacter providencia and anaerobes, presented to hospital with chest pain shortness of breath and some mental status changes, patient did have worsening of his kidney function requiring dialysis catheter placement and has been started on dialysis On today's evaluation that is 07/01/2023 the patient remains to be afebrile, the patient is breathing comfortably on room air and no need for supplemental oxygen, the patient denies having any chest pain denies any cough or sputum pr oduction, patient denies any abdominal pain no nausea vomiting or any diarrhea, denies pain to the right heel wound The patient white count is 9.07, creatinine is 2.0 Objective - Vital Signs Vital signs: Vital Signs Temp 97.4 F L 07/01/23 16:25 Pulse 99 07/01/23 17:49 Resp 24 07/01/23 16:25 BP 95/59 07/01/23 17:49 Pulse Ox 100 07/01/23 17:49 FiO2 Intake & Output 07/01/23 07/01/23 07/02/23 06:59 18:59 06:59 Intake Total 720 800 Output Total 600 1400 Balance 120 -600 Weight 95.2 kg Intake: IV 240 0.9 240 Intake, IV Titration 100 Amount Piperacillin-Tazobactam 3 100 .375 gm In Sodium Chloride 0.9% 100 ml @ 25 mls/hr IVPB Q12H [facility] Rx# :[id number] Oral 480 Hemodialysis 700 Output: Urine 600 Hemodialysis 1400 Other: Voiding Method Indwelling Catheter Indwelling Catheter - Exam GENERAL DESCRIPTION: A middle-age male up in bed in no distress RESPIRATORY SYSTEM: Unlabored breathing , clear to auscultation anteriorly HEART: S1 S2 regular rate and rhythm , ABDOMEN: Soft , no tenderness EXTREMITIES: Right heel wound base looks clean with no slough tissue no surrounding redness or foul-smelling drainage - Labs CBC & Chem 7: 07/02/23 06:01 07/02/23 06:01 Labs: Abnormal Lab Results - Last 24 Hours (Table) 07/01/23 07/01/23 07/01/23 Range/Units 05:56 05:58 05:58 RBC 4.21 L (4.40-5.60) X 10*6/uL Hgb 11.3 L (13.0-17.0) g/dL Hct 37.5 L (39.6-50.0) % MCH 26.8 L (27.0-32.0) pg MCHC 30.1 L (32.0-37.0) g/dL RDW 18.6 H (11.5-14.5) % Monocytes # 1.09 H (0.20-1.00) X 10*3/uL Anion Gap 13.50 H (4.00-12.00) mmol/L Creatinine 2.0 H (0.6-1.5) mg/dL Est GFR (CKD-EPI) 39 L (>=60) Glucose 141 H (70-110) mg/dL POC Glucose (mg/dL) 154 H (70-110) mg/dL Calcium 8.6 L (8.7-10.3) mg/dL 07/01/23 Range/Units 11:30 RBC (4.40-5.60) X 10*6/uL Hgb (13.0-17.0) g/dL Hct (39.6-50.0) % MCH (27.0-32.0) pg MCHC (32.0-37.0) g/dL RDW (11.5-14.5) % Monocytes # (0.20-1.00) X 10*3/uL Anion Gap (4.00-12.00) mmol/L Creatinine (0.6-1.5) mg/dL Est GFR (CKD-EPI) (>=60) Glucose (70-110) mg/dL POC Glucose (mg/dL) 197 H (70-110) mg/dL Calcium (8.7-10.3) mg/dL Assessment and Plan (1) Wound of foot Current Visit: Yes Status: Acute Code(s): S91.309A - UNSPECIFIED OPEN WOUND, UNSPECIFIED FOOT, INITIAL ENCOUNTER SNOMED Code(s): 286423615 (2) Foot osteomyelitis, right Current Visit: No Status: Acute Code(s): M86.9 - OSTEOMYELITIS, UNSPECIFIED SNOMED Code(s): 6494658747482363 Plan: 1patient with the right heel diabetic foot infection with underlying osteomyelitis in this patient cultures were predominantly positive for gram- negative including Proteus Providencia Streptococcus and anaerobes , Culture done this admission has been positive for MRSA 2patient did have worsening of his kidney function and the patient be started on dialysis with the patient has been tolerating 3patient to continue with Zosyn and daptomycin however we will be switching him to cefepime however with dialysis on discharge as the patient seemed to have refused amputation and continued to refuse it Dictation was produced using [employer] dictation software. please excuse any grammatical, word or spelling errors. Time with Patient: Less than 30
--- NOTE | 2023-07-02 15:38 | P.PN ---
Subjective Progress Note Date: 07/02/23 Principal diagnosis: Reason for follow-up is right heel diabetic foot infection and osteomyelitis Patient is a 53-year-old male with a past medical history significant for diabetes mellitus hyperlipidemia hypertension [place] history of diabetic foot infection with a chronic nonhealing wound to the right heel area and underlying osteomyelitis with a previous culture positive for Proteus Acinetobacter providencia and anaerobes, presented to hospital with chest pain shortness of breath and some mental status changes, patient did have worsening of his kidney function requiring dialysis catheter placement and has been started on dialysis On today's evaluation that is 07/02/2023, the patient continues to be afebrile and is breathing comfortably on room air, and patient denies any shortness of breath, chest pain, no cough or sputum production, patient denies nausea/ vomiting /diarrhea and no abdominal pain. Patient denies pain to the right heel apparently the patient refused his dialysis this morning The patient white count is 9.16, creatinine is 2.0 Objective - Vital Signs Vital signs: Vital Signs Temp 98.0 F 07/02/23 10:32 Pulse 101 H 07/02/23 10:32 Resp 20 07/02/23 10:32 BP 105/57 07/02/23 10:32 Pulse Ox 98 07/02/23 07:35 FiO2 Intake & Output 07/01/23 07/02/23 07/02/23 18:59 06:59 18:59 Intake Total 800 400 Output Total 1400 268 Balance -600 132 Weight 100.1 kg Intake: Intake, IV Titration 100 Amount Piperacillin-Tazobactam 3 100 .375 gm In Sodium Chloride 0.9% 100 ml @ 25 mls/hr IVPB Q12H [facility] Rx# :[id number] Hemodialysis 700 400 Output: Hemodialysis 1400 268 Other: Voiding Method Indwelling Catheter # Voids 2 - Exam GENERAL DESCRIPTION: A middle-age male up in bed in no distress RESPIRATORY SYSTEM: Unlabored breathing , clear to auscultation anteriorly HEART: S1 S2 regular rate and rhythm , ABDOMEN: Soft , no tenderness EXTREMITIES: Right heel wound currently dressed - Labs CBC & Chem 7: 07/02/23 06:01 07/02/23 06:01 Labs: Abnormal Lab Results - Last 24 Hours (Table) 07/01/23 07/01/23 07/02/23 Range/Units 11:30 20:44 05:50 RBC (4.40-5.60) X 10*6/uL Hgb (13.0-17.0) g/dL Hct (39.6-50.0) % MCHC (32.0-37.0) g/dL RDW (11.5-14.5) % MPV (9.5-12.2) FL Monocytes # (0.20-1.00) X 10*3/uL Eosinophils # (0.04-0.35) X 10*3/uL Anion Gap (4.00-12.00) mmol/L BUN (9.0-27.0) mg/dL Creatinine (0.6-1.5) mg/dL Est GFR (CKD-EPI) (>=60) Glucose (70-110) mg/dL POC Glucose (mg/dL) 197 H 114 H 137 H (70-110) mg/dL AST (14-35) U/L ALT (10-49) U/L Alkaline Phosphatase (41-126) U/L Albumin (3.8-4.9) g/dL Globulin (1.6-3.3) g/dL Albumin/Globulin Ratio (1.60-3.17) Ratio 07/02/23 07/02/23 Range/Units 06:01 06:01 RBC 4.15 L (4.40-5.60) X 10*6/uL Hgb 11.3 L (13.0-17.0) g/dL Hct 37.2 L (39.6-50.0) % MCHC 30.4 L (32.0-37.0) g/dL RDW 18.6 H (11.5-14.5) % MPV 12.5 H (9.5-12.2) FL Monocytes # 1.22 H (0.20-1.00) X 10*3/uL Eosinophils # 0.38 H (0.04-0.35) X 10*3/uL Anion Gap 13.40 H (4.00-12.00) mmol/L BUN 32.9 H (9.0-27.0) mg/dL Creatinine 2.0 H (0.6-1.5) mg/dL Est GFR (CKD-EPI) 39 L (>=60) Glucose 129 H (70-110) mg/dL POC Glucose (mg/dL) (70-110) mg/dL AST 43 H (14-35) U/L ALT 66 H (10-49) U/L Alkaline Phosphatase 216 H (41-126) U/L Albumin 3.7 L (3.8-4.9) g/dL Globulin 3.6 H (1.6-3.3) g/dL Albumin/Globulin Ratio 1.03 L (1.60-3.17) Ratio Assessment and Plan (1) Wound of foot Current Visit: Yes Status: Acute Code(s): S91.309A - UNSPECIFIED OPEN WOUND, UNSPECIFIED FOOT, INITIAL ENCOUNTER SNOMED Code(s): 758586792 (2) Foot osteomyelitis, right Current Visit: No Status: Acute Code(s): M86.9 - OSTEOMYELITIS, UNSPECIFIED SNOMED Code(s): 6734537347877403 Plan: 1patient with the right heel diabetic foot infection with underlying osteomyelitis in this patient cultures were predominantly positive for gram- negative including Proteus Providencia Streptococcus and anaerobes , Culture done this admission has been positive for MRSA 2patient did have worsening of his kidney function and the patient be started on dialysis with the patient has been tolerating 3patient did have improvement of his right heel wound on evaluation yesterday as the patient has refused amputation and to avoid placing another PICC line with the patient has previously pulled out, however suggest daptomycin and cefepime with dialysis along with oral Flagyl local care to continue per surgery discussed with the BLEND TECHNICIAN for admitting team working on discharge Dictation was produced using [employer] dictation software. please excuse any grammatical, word or spelling errors. Time with Patient: Less than 30
[2023-07-02 16:13] VITALS: PULSE 98
--- NOTE | 2023-07-03 17:19 | CDI ---
Documentation Clarification Form Date: 07/03/2023 05:03:43 PM From: Luz Marina Chin Phone: Admit Date: 06/16/2023 02:51:00 PM Patient Name: Ezequiel Haynes Visit Number: [id number] Discharge Date: 07/02/2023 04:00:00 PM ATTENTION: The Clinical Documentation Specialists (CDI) and [facility] Coding Staff appreciate your assistance in clarifying documentation. Please respond to the clarification below the line at the bottom and electronically sign. The CDI & [facility] Coding staff will review the response and follow-up if needed. Please note: Queries are made part of the Legal Health Record. If you have any questions, please contact the author of this message via ITS. Dr. Kalani Castellanos CKD is documented per Progress Notes. Additional clarification regarding the stage of CKD is requested. History/Risk Factors: 53yo M, DMII w foot/christine ulcer, MRSA cellulitis, ATN on CKD, COPD, CBP, chronic hypoTN, KAMINI, perph neuropathy, HLD, ACSHF, HTN, AICD Baseline creatinine of 1.2 on May 14 Clinical Indicators: BUN: 28- 99 CR: 9- 25.57 AfAm GFR: 06/18 42 06/20 25 06/20 19 NonAfAm: 06/18 37 06/20 22 06/20 16 Treatment: temp then tunneled HD Cath w HD Please clarify the stage of the CKD, if known: [ ] CKD Stage 3b (GFR 30-44) [ ] CKD Stage 4 (GFR 15-29) [ ] CKD Stage 5 (GFR <15) [ ] CKD with Hemodialysis dependance/ESRD [ x ] Other, please specify __3a [ ] Unable to determine (Template last revised: August 2020) MTDD
--- NOTE | 2023-07-03 17:28 | CDI ---
Documentation Clarification Form Date: 07/03/2023 05:20:00 PM From: Luz Marina Chin Phone: Admit Date: 06/16/2023 02:51:00 PM Patient Name: Ezequiel Haynes Visit Number: [id number] Discharge Date: 07/02/2023 04:00:00 PM ATTENTION: The Clinical Documentation Specialists (CDI) and [facility] Coding Staff appreciate your assistance in clarifying documentation. Please respond to the clarification below the line at the bottom and electronically sign. The CDI & [facility] Coding staff will review the response and follow-up if needed. Please note: Queries are made part of the Legal Health Record. If you have any questions, please contact the author of this message via ITS. Dr. Frannie Borja There is documentation of a Lt Lateral Great Toe ulcer per color photo #2. Additional specificity regarding the etiology and severity of the wound is requested. Patient history/risk factors: 53yo M, DMII w foot/christine ulcer, MRSA cellulitis, ATN on CKD, osteomyelitis, Rx/HD/Tx noncompliance, COPD, CBP, chronic hypoTN, KAMINI, perph neuropathy, HLD, ACSHF, HTN, AICD Clinical Indicators: Wound assessment: a Lt Lateral Great Toe ulcer See color photo #2 Treatment: continue with dressing changes to BLE with Aquasol silver, 4 x 4, Kerlix, left christine silver 4 x 4 and Kerlix, right heel honey sheet with 4 x 4 Kerlix per ID recommendations Please clarify the etiology and severity of the wound: Etiology: [x ] Non-pressure chronic ulcer due to diabetes [ ] Non-pressure chronic ulcer due to venous insufficiency [ ] Other, Please specify [ ] Unable to determine Severity: [ x ] Limited to breakdown of skin [ ] With fat layer exposed [ ] With necrosis of muscle [ ] With necrosis of bone [ ] Other, Please specify [ ] Unable to determine (Template Last Revised: September 2020) MTDD
== END 2023-07-02 16:00 | DRG 291 ==
LOC: SUPCPDRO 14:33 → EC 14:33 → 6NMEDSUR 17:56 → 4SSUR 21:58 → OBSVTOIN 06-16 14:51 → 4SSUR 06-24 18:04
PROVIDERS: ADMIT Hospitalist; ATTEND Hospitalist
PROC: 5A1D70Z Performance of Urinary Filtration, Intermittent, Less than 6 Hours Per Day (ICD-10-PCS; 2023-06-22)
PROC: 06HY33Z Insertion of Infusion Device into Lower Vein, Percutaneous Approach (ICD-10-PCS; 2023-06-22)
PROC: 0JH63XZ Insertion of Tunneled Vascular Access Device into Chest Subcutaneous Tissue and Fascia, Percutaneous Approach (ICD-10-PCS; 2023-06-28)
PROC: 02HV33Z Insertion of Infusion Device into Superior Vena Cava, Percutaneous Approach (ICD-10-PCS; 2023-06-28)
PROC: 02HV33Z Insertion of Infusion Device into Superior Vena Cava, Percutaneous Approach (ICD-10-PCS; principal; 2023-06-28 07:30)
PROC: 06PY33Z Removal of Infusion Device from Lower Vein, Percutaneous Approach (ICD-10-PCS; 2023-06-28 07:30)
DX: I13.0 Hypertensive heart and chronic kidney disease with heart failure and stage 1 through stage 4 chronic kidney disease, or unspecified chronic kidney disease (principal); G92.8 Other toxic encephalopathy; I50.23 Acute on chronic systolic (congestive) heart failure; N17.0 Acute kidney failure with tubular necrosis; M86.8X7 Other osteomyelitis, ankle and foot; I47.20 Ventricular tachycardia, unspecified; L97.412 Non-pressure chronic ulcer of right heel and midfoot with fat layer exposed; L97.221 Non-pressure chronic ulcer of left calf limited to breakdown of skin; L03.115 Cellulitis of right lower limb; E87.1 Hypo-osmolality and hyponatremia; B37.89 Other sites of candidiasis; L03.116 Cellulitis of left lower limb; E11.621 Type 2 diabetes mellitus with foot ulcer; I42.8 Other cardiomyopathies; I27.20 Pulmonary hypertension, unspecified; E11.622 Type 2 diabetes mellitus with other skin ulcer; E11.69 Type 2 diabetes mellitus with other specified complication; E11.628 Type 2 diabetes mellitus with other skin complications; E11.22 Type 2 diabetes mellitus with diabetic chronic kidney disease; E11.42 Type 2 diabetes mellitus with diabetic polyneuropathy; E11.649 Type 2 diabetes mellitus with hypoglycemia without coma; E11.65 Type 2 diabetes mellitus with hyperglycemia; Z79.4 Long term (current) use of insulin; Z53.8 Procedure and treatment not carried out for other reasons; N18.31 Chronic kidney disease, stage 3a; I08.1 Rheumatic disorders of both mitral and tricuspid valves; I95.89 Other hypotension; F32.A Depression, unspecified; B96.4 Proteus (mirabilis) (morganii) as the cause of diseases classified elsewhere; L97.521 Non-pressure chronic ulcer of other part of left foot limited to breakdown of skin; B95.4 Other streptococcus as the cause of diseases classified elsewhere; E78.5 Hyperlipidemia, unspecified; G89.29 Other chronic pain; G47.33 Obstructive sleep apnea (adult) (pediatric); F41.9 Anxiety disorder, unspecified; M19.90 Unspecified osteoarthritis, unspecified site; I87.2 Venous insufficiency (chronic) (peripheral); J44.89 Other specified chronic obstructive pulmonary disease; I25.5 Ischemic cardiomyopathy; F17.210 Nicotine dependence, cigarettes, uncomplicated; M54.2 Cervicalgia; I25.10 Atherosclerotic heart disease of native coronary artery without angina pectoris; B95.62 Methicillin resistant Staphylococcus aureus infection as the cause of diseases classified elsewhere; E87.5 Hyperkalemia; T50.916A Underdosing of multiple unspecified drugs, medicaments and biological substances, initial encounter; R29.6 Repeated falls; Z20.822 Contact with and (suspected) exposure to COVID-19; M54.50 Low back pain, unspecified; W07.XXXA Fall from chair, initial encounter; Y92.230 Patient room in hospital as the place of occurrence of the external cause; Z91.148 Patient's other noncompliance with medication regimen for other reason; Z91.158 Patient's noncompliance with renal dialysis for other reason; I25.2 Old myocardial infarction; Z79.899 Other long term (current) drug therapy; Z95.810 Presence of automatic (implantable) cardiac defibrillator; Z86.14 Personal history of Methicillin resistant Staphylococcus aureus infection; Z79.82 Long term (current) use of aspirin; Z79.84 Long term (current) use of oral hypoglycemic drugs; Z88.1 Allergy status to other antibiotic agents; Z88.8 Allergy status to other drugs, medicaments and biological substances; Z91.199 Patient's noncompliance with other medical treatment and regimen due to unspecified reason; Z98.61 Coronary angioplasty status; Z98.1 Arthrodesis status
CPT/HCPCS: 36415; 36556; 36558; 36600; 70450; 71045; 71046; 72110; 76937; 77001; 80048; 80053; 80306; 80320; 81003; 82009; 82140; 82803; 82805; 83605; 83735; 83880; 84100; 84132; 84443; 84484; 85025; 85610; 85730; 86706; 86850; 86900; 86901; 87040; 87070; 87075; 87077; 87186; 87205; 87340; 87636; 90935; 93005; 93922; 94640; 94760; 96365; 96375; 99211; 99285

== ENCOUNTER 2023-07-04 10:05 | Inpatient (IN) | payer MEDICARE, OTHER ==
[2023-07-04] MEDS: methylPREDNISolone SOD SUCCI 125 MG/2 ML VIAL IV STA (10:32)
[2023-07-04 10:43] LABS: Anisocytosis Slight; Basophils # (A) 0.1 k/uL (0-0.2); Basophils % (A) 1 %; Eosinophils # (A) 0.1 k/uL (0-0.7); Eosinophils % (A) 1 %; Hypochromasia Marked; Lymphocytes # (A) 1.4 k/uL (1.0-4.8); Lymphocytes % (A) 13 %; MCH 28.1 pg (25.0-35.0); MCHC 30.9 g/dL (31.0-37.0); MCV 90.9 fL (80.0-100.0); Monocytes # (A) 0.9 k/uL (0-1.0); Monocytes % (A) 9 %; Neutrophils # (A) 8.1 k/uL (1.3-7.7); Neutrophils % (A) 74 %; Platelet Count 169 k/uL (150-450); RBC 4.29 m/uL (4.30-5.90); RDW 16.5 % (11.5-15.5)
--- NOTE | 2023-07-04 10:48 | ED ---
General Adult HPI - General Stated complaint: SOB Time Seen by Provider: 07/04/23 10:07 Source: patient, RN notes reviewed, old records reviewed - History of Present Illness Initial comments: Patient is a 53-year-old male who presents emergency department for shortness of breath. Was receiving dialysis where he received a dose of 50 mg of Benadryl and then started expressing shortness of breath. It's he has felt short of ana laura ath for multiple days. Endorses somewhat chronic lower extremity edema which is unchanged. Also is on antibiotics for lower extremity wounds. Is not usually on oxygen. His no other acute complaints at this time. Denies any fevers or chills. States he has been dressing his wounds. Recently was discharged from the hospital for CHF as well as for chronic foot wounds. Was discharged home on antibiotics and patient states that he has been compliant. Has been home for 2- 3 days. Cannot tell me the name of the Antibiotics He Is on. Presents for Further Evaluation at This Time. Typically receives dialysis Saturday. - Related Data Home Medications Medication Instructions Recorded Confirmed Albuterol Inhaler [Ventolin Hfa 2 puff INHALATION RT-QID PRN 07/06/22 07/04/23 Inhaler] SILVER sulfADIAZINE CREAM 1 applic TOPICAL BID@0800,1700 06/04/23 07/04/23 [Silvadene Cream] Aspirin 81 mg PO DAILY 07/04/23 07/04/23 Famotidine [Pepcid] 20 mg PO DAILY 07/04/23 07/04/23 HYDROcodone/APAP 5-325MG [[place] 1 tab PO Q6HR PRN 07/04/23 07/04/23 5-325] Heparin Sodium,Porcine (1 ml) 5,000 unit SQ TID@0700,1500,2300 07/04/23 07/04/23 [Heparin Sodium] INSULIN LISPRO (HumaLOG) [humaLOG] See Protocol SQ ACHS 07/04/23 07/04/23 Insulin Glargine,Hum.rec.anlog 28 units SQ HS 07/04/23 07/04/23 [Trudi Bojorquezostluly] Metoprolol Tartrate [Lopressor] 25 mg PO BID 07/04/23 07/04/23 Midodrine HCl [ProAmatine] 10 mg PO TID@0730,1100,1600 07/04/23 07/04/23 Multivitamins, Thera [Multivitamin 1 tab PO DAILY 07/04/23 07/04/23 (formulary)] QUEtiapine [SEROquel] 12.5 mg PO BID 07/04/23 07/04/23 QUEtiapine [SEROquel] 12.5 mg PO BID PRN 07/04/23 07/04/23 Sodium Bicarbonate Tab 650 mg PO BID@0730,1600 07/04/23 07/04/23 Torsemide [Soaanz] 40 mg PO SUMOWEFR@0700 07/04/23 07/04/23 Torsemide [Soaanz] 40 mg PO TUTHSA@1000 07/04/23 07/04/23 metroNIDAZOLE [Flagyl] 500 mg PO TID@0700,1500,2300 07/04/23 07/04/23 Previous Rx's Medication Instructions Recorded Acetaminophen Tab [Tylenol] 650 mg PO Q6HR PRN tab 07/02/23 Cefepime [Maxipime] 2 gm IVP Q48H #12 each 07/02/23 DAPTOmycin [Cubicin] 600 mg IV Q48H #12 each 07/02/23 DULoxetine HCL [Cymbalta] 30 mg PO DAILY cap 07/02/23 Folic Acid 1 mg PO DAILY tab 07/02/23 Ipratropium-Albuterol Nebulize 3 ml INHALATION RT-QID each 07/02/23 [Duoneb 0.5 mg-3 mg/3 ml Soln] Lactulose [Cephulac] 20 gm PO DAILY PRN ml 07/02/23 OLANZapine [ZyPREXA] 5 mg PO TID PRN tab 07/02/23 Thiamine [Vitamin B-1] 100 mg PO DAILY #30 tablet 07/02/23 fluPHENAZine [Prolixin] 3 mg PO HS tab 07/02/23 traZODone HCL [Desyrel] 50 mg PO HS PRN tab 07/02/23 Allergies Allergy/AdvReac Type Severity Reaction Status Date / Time azithromycin Allergy Anaphylaxis Verified 07/04/23 12:16 gemfibrozil [From Lopid] Allergy Rash/Hives Verified 07/04/23 12:16 Review of Systems ROS Statement: Those systems with pertinent positive or pertinent negative responses have been documented in the HPI. Review of Systems: CONST: Denies fever EYES: Denies blurry vision ENT: Denies nasal congestion C/V: Denies Chest pain RESP: Endorses dyspnea GI: Denies abdominal pain : Denies dysuria SKIN: Denies rash. MSK: Denies joint pain. NEURO: Denies headache ROS Other: All systems not noted in ROS Statement are negative. Past Medical History Past Medical History: Asthma, Coronary Artery Disease (CAD), Chest Pain / Angina, Heart Failure, COPD, Diabetes Mellitus, GERD/Reflux, Hyperlipidemia, Hypertension, Myocardial Infarction (ME), Pneumonia, Sleep Apnea/CPAP/BIPAP, Supraventricular Tachycardia (SVT) Additional Past Medical History / Comment(s): Ischemic cardiomyopathy, chronic CHF, SVT, IDDM type II, KAMINI with CPAP occasionally used, chronic cervical/back pain, DJD, diabetic foot wounds x 4 months. Last Myocardial Infarction Date:: 12/11/17 History of Any Multi-Drug Resistant Organisms: MRSA Date of last positivie culture/infection: 06/15/23 MDRO Source:: Right Foot Past Surgical History: Adenoidectomy, AICD, Back Surgery, Cholecystectomy, EPS, Heart Catheterization, Pacemaker, Tonsillectomy Additional Past Surgical History / Comment(s): 12/10/17 cardiac cath, previous cardiac cath, 09/02/14 AICD/pacer, EGD/colonoscopy, low back surgery with fusion. Past Anesthesia/Blood Transfusion Reactions: Motion Sickness Additional Past Anesthesia/Blood Transfusion Reaction / Comment(s): Pt states he received blood with back surgery without reaction. Type of Cardiac Device: Permanent Pacemaker, AICD Device Placement Date:: 09-02-14 Past Psychological History: ADD/ADHD, Anxiety Additional Psychological History / Comment(s): Pt lives with his old son. There are cats in the home. Pt is very independent. He states he would like a walker d/t his L foot wound. He drives. Pt states he has ADHD. Pt is disabled. He has a glucometer and nebulizer. The patient worked in the past building [employer] and [employer]. Smoking Status: Current every day smoker Past Alcohol Use History: Occasional Additional Past Alcohol Use History / Comment(s): patient states that he quit s moking 3 weeks ago Past Drug Use History: Marijuana Additional Drug Use History / Comment(s): Occasional marijuana use. - Past Family History Father Additional Family Medical History / Comment(s): Pt has not kept in close contact with his father for many yrs. Father was an alcoholic and pt believes he has from cirrhosis of the liver. Mother History Unknown: Yes Additional Family Medical History / Comment(s): Pt is not in contact with his mother or his father who he has heard had . General Exam - General Exam Comments Initial Comments: General: Appears in no acute distress. HEAD: Normal with no signs of head trauma. EYES: PERRLA, EOMI, conjunctiva normal, no discharge. ENT: Hearing grossly intact, normal oropharynx. RESPIRATORY: Bilateral end expiratory wheezing. Mild hypoxia on room air. C/V: Regular rate and rhythm. S1 and S2 auscultated, bilateral lower extremity pitting edema, peripheral pulses 2+ and intact throughout.Right chest dialysis catheter. ABD: Abd is soft, nontender, nondistended EXT: Normal range of motion, no obvious deformity SKIN: Bilateral extremely lower extremity wounds. Left lower extremity wounds appear relatively clean and healing. Right lower extremity wound has what appears to be purulent discharge. Located over the heel.Patient has bruising over her bilateral buttocks that appear somewhat old. Minimal tenderness to palpation of the lower spine as well as buttocks. NEURO: Alert and oriented 4. Course Vital Signs 07/04/23 07/04/23 07/04/23 10:12 10:30 11:00 Temperature 98.6 F Pulse Rate 104 H 101 H 102 H Respiratory 30 H 24 22 Rate Blood Pressure 95/73 94/71 103/77 O2 Sat by Pulse 95 97 97 Oximetry 07/04/23 07/04/23 07/04/23 11:30 12:00 12:30 Temperature Pulse Rate 101 H 106 H 104 H Respiratory 20 24 24 Rate Blood Pressure 58/44 97/76 125/109 O2 Sat by Pulse 100 99 100 Oximetry 07/04/23 13:00 Temperature Pulse Rate 108 H Respiratory 22 Rate Blood Pressure 118/81 O2 Sat by Pulse 98 Oximetry Medical Decision Making - Medical Decision Making Was pt. sent in by a medical professional or institution (, PA, TOUCH UP PAINTER [employer], urgent care, hospital, or detention...) When possible be specific @ -No Did you speak to anyone other than the patient for history (EMS, parent, family, police, friend...)? What history was obtained from this source @ -No Did you review nursing and triage notes (agree or disagree)? Why? @ -I reviewed and agree with nursing and triage notes Were old charts reviewed (outside hosp., previous admission, EMS record, old EKG, old radiological studies, urgent care reports/EKG's, detention records)? Report findings @ -Old charts reviewed. Differential Diagnosis (chest pain, altered mental status, abdominal pain women, abdominal pain men, vaginal bleeding, weakness, fever, dyspnea, syncope, heada virgil, dizziness, GI bleed, back pain, seizure, CVA, palpatations, mental health, musculoskeletal)? @ -Differential Dyspnea: Coronary syndrome, arrhythmia, tamponade, asthma, COPD, pulmonary embolism, pneumonia, pneumothorax, pulmonary effusion, anaphylaxis, diabetic ketoacidosis, flailed chest, pulmonary contusion, diaphragmatic rupture, anemia, neuromuscular, this is not meant to be an all-inclusive list. EKG interpreted by me (3pts min.). @ -As above X-rays interpreted by me (1pt min.). @ -Chest x-ray shows pulmonary vascular congestion. Lumbar spine and pelvis x- rays revealed no obvious acute trauma. Patient's right foot x-ray does reveal a chronic osteomyelitis similar to previous x-ray. CT interpreted by me (1pt min.). @ -None done U/S interpreted by me (1pt. min.). @ -None done What testing was considered but not performed or refused? (CT, X-rays, U/S, labs)? Why? @ -None What meds were considered but not given or refused? Why? @ -None Did you discuss the management of the patient with other professionals (pr ofessionals i.e. , PA, TOU[employer] PAINTER [employer], lab, RT, psych nurse, foster care social worker, digital service engineer, teacher, chief supply chain officer, rn field case manager)? Give summary @ -I discussed with Dr. Castellanos who was in agreement with the plan for dialysis. Recommended placing the patient on 80 mg IV Lasix twice a day as the patient makes urine. This was ordered. They will arrange for dialysis. Discussed with Dr. Ha who accepted the admission. [facility] is covering for Dr. Johnson who normally admits for Dr. Rodríguez.Requested a consult infectious disease which was done. Was smoking cessation discussed for >3mins.? @ -No Was critical care preformed (if so, how long)? @ -Yes, 36 minutes. Were there social determinants of health that impacted care today? How? (Homelessness, low income, unemployed, alcoholism, drug addiction, tra nsportation, low edu. Level, literacy, decrease access to med. care, long-term, rehab)? @ -No Was there de-escalation of care discussed even if they declined (Discuss DNR or withdrawal of care, Hospice)? DNR status @ -No What co-morbidities impacted this encounter? (DM, HTN, Smoking, COPD, CAD, Cancer, CVA, ARF, Chemo, Hep., AIDS, mental health diagnosis, sleep apnea, morbid obesity)? @ -None Was patient admitted / discharged? Hospital course, mention meds given and route, prescriptions, significant lab abnormalities, going to OR and other pertinent info. @ -Based on patient's presentation and physical exam, presents for dyspnea as well as what appears to be a possible infected right heel. States he is currently on antibiotics. I have evaluated the patient before he is somewhat a poor historian. We will obtain dyspnea workup as well as x-rays of the right foot, pelvis and low back. Patient agreement this plan. He is requiring low levels of oxygen at this time. Patient is wheezing we will treat for COPD. Patient agreement this plan. He'll be given a dose of steroids as well as a breathing treatment. Patient was sent from dialysis and received an hour and a half of his run. EKG showed no signs of acute ischemia.Chest x-ray shows pulmonary vascular congestion. Extremity x-rays show chronic osteomyelitis of the right foot. Patient's laboratory studies remarkable for an elevated BUN/creatinine in the setting of CK D. Patient also has an elevated BNP of 15,000 which is high for the patient. Patient is Covid positive. I discussed workup with the patient. He expressed understanding. As he is requiring oxygen he will be admitted. Dr. Castellanos of nephrology was notified of the consult and she was in agreement with arranging for dialysis patient appears volume overloaded. Recommended we place the patient on 80 mg IV Lasix twice a day. Otherwise was in agreement with the consult. I spoke with Dr. Ha who accepted the admission who is covering for Dr. Johnson.Patient's antibiotics restarted. Undiagnosed new problem with uncertain prognosis? @ -No Drug Therapy requiring intensive monitoring for toxicity (Heparin, Nitro, Insulin, Cardizem)? @ -No Were any procedures done? @ -No Diagnosis/symptom? @ -Hypoxia and dyspnea secondary to volume overload in the setting COVID-19 infection and ESRD on hemodialysis Acute, or Chronic, or Acute on Chronic? @ -Acute Uncomplicated (without systemic symptoms) or Complicated (systemic symptoms)? @ -Complicated Side effects of treatment? @ -no Exacerbation, Progression, or Severe Exacerbation] @ -no Poses a threat to life or bodily function? @ -yes Diagnosis/symptom? @ -Chronic lower extremity wounds, chronic osteomyelitis of the right foot Acute, or Chronic, or Acute on Chronic? @ -Acute Uncomplicated (without systemic symptoms) or Complicated (systemic symptoms)? @ -Complicated Side effects of treatment? @ -none Exacerbation, Progression, or Severe Exacerbation] @ -no Poses a threat to life or bodily function? @ -Possibly, yes - Lab Data Result diagrams: 07/04/23 10:19 07/04/23 10:19 Lab Results 07/04/23 07/04/23 07/04/23 Range/Units 10:19 10:19 10:19 WBC 11.0 H (3.8-10.6) k/uL RBC 4.29 L (4.30-5.90) m/uL Hgb 12.0 L (13.0-17.5) gm/dL Hct 39.0 (39.0-53.0) % MCV 90.9 (80.0-100.0) fL MCH 28.1 (25.0-35.0) pg MCHC 30.9 L (31.0-37.0) g/dL RDW 16.5 H (11.5-15.5) % Plt Count 169 (150-450) k/uL MPV 11.0 Neutrophils % 74 % Lymphocytes % 13 % Monocytes % 9 % Eosinophils % 1 % Basophils % 1 % Neutrophils # 8.1 H (1.3-7.7) k/uL Lymphocytes # 1.4 (1.0-4.8) k/uL Monocytes # 0.9 (0-1.0) k/uL Eosinophils # 0.1 (0-0.7) k/uL Basophils # 0.1 (0-0.2) k/uL Hypochromasia Marked Anisocytosis Slight PT 14.1 H (10.0-12.5) sec INR 1.4 H (<1.2) APTT 27.4 (22.0-30.0) sec Sodium 135 L (137-145) mmol/L Potassium 4.0 (3.5-5.1) mmol/L Chloride 95 L (98-107) mmol/L Carbon Dioxide 27 (22-30) mmol/L Anion Gap 13 mmol/L BUN 38 H (9-20) mg/dL Creatinine 1.75 H (0.66-1.25) mg/dL Est GFR (CKD-EPI)AfAm 50 (>60 ml/min/1.73 sqM) Est GFR (CKD-EPI)NonAf 43 (>60 ml/min/1.73 sqM) Glucose 102 H (74-99) mg/dL Plasma Lactic Acid Shane (0.7-2.0) mmol/L Calcium 8.6 (8.4-10.2) mg/dL Magnesium 1.9 (1.6-2.3) mg/dL Total Bilirubin 1.3 (0.2-1.3) mg/dL AST 47 (17-59) U/L ALT 50 H (4-49) U/L Alkaline Phosphatase 192 H (38-126) U/L NT-Pro-B Natriuret Pep 95442 pg/mL Total Protein 7.6 (6.3-8.2) g/dL Albumin 3.7 (3.5-5.0) g/dL Influenza Type A (PCR) (Not Detectd) Influenza Type B (PCR) (Not Detectd) RSV (PCR) (Not Detectd) SARS-CoV-2 (PCR) (Not Detectd) 07/04/23 07/04/23 Range/Units 10:19 10:19 WBC (3.8-10.6) k/uL RBC (4.30-5.90) m/uL Hgb (13.0-17.5) gm/dL Hct (39.0-53.0) % MCV (80.0-100.0) fL MCH (25.0-35.0) pg MCHC (31.0-37.0) g/dL RDW (11.5-15.5) % Plt Count (150-450) k/uL MPV Neutrophils % % Lymphocytes % % Monocytes % % Eosinophils % % Basophils % % Neutrophils # (1.3-7.7) k/uL Lymphocytes # (1.0-4.8) k/uL Monocytes # (0-1.0) k/uL Eosinophils # (0-0.7) k/uL Basophils # (0-0.2) k/uL Hypochromasia Anisocytosis PT (10.0-12.5) sec INR (<1.2) APTT (22.0-30.0) sec Sodium (137-145) mmol/L Potassium (3.5-5.1) mmol/L Chloride (98-107) mmol/L Carbon Dioxide (22-30) mmol/L Anion Gap mmol/L BUN (9-20) mg/dL Creatinine (0.66-1.25) mg/dL Est GFR (CKD-EPI)AfAm (>60 ml/min/1.73 sqM) Est GFR (CKD-EPI)NonAf (>60 ml/min/1.73 sqM) Glucose (74-99) mg/dL Plasma Lactic Acid Shane 1.4 (0.7-2.0) mmol/L Calcium (8.4-10.2) mg/dL Magnesium (1.6-2.3) mg/dL Total Bilirubin (0.2-1.3) mg/dL AST (17-59) U/L ALT (4-49) U/L Alkaline Phosphatase (38-126) U/L NT-Pro-B Natriuret Pep pg/mL Total Protein (6.3-8.2) g/dL Albumin (3.5-5.0) g/dL Influenza Type A (PCR) Not Detected (Not Detectd) Influenza Type B (PCR) Not Detected (Not Detectd) RSV (PCR) Not Detected (Not Detectd) SARS-CoV-2 (PCR) Detected A (Not Detectd) - EKG Data -: EKG Interpreted by Me EKG Comments: 12-lead Electrocardiogram Interpretation Note EKG was reviewed and interpreted by myself. 12-lead ECG performed at 1023 is interpreted by me as revealing sinus tachycardia at a rate of 101 beats per minute. Right axis deviation. SD interval is 178 ms, QRS duration is 114 ms, QTc is 421 ms. PVC present. There were no ST or T wave abnormalities to suggest myocardial ischemia or injury. R wave progression across the precordium was satisfactory. By my interpretation this EKG is non-diagnostic for acute ischemia. Disposition Clinical Impression: Hypoxia, Dyspnea, COVID-19 virus infection, Volume overload Disposition: ADMITTED IP TO THIS HOSP Condition: Stable Time of Disposition: 11:45
[2023-07-04 10:53] LABS: ALT 50 U/L (4-49); AST 47 U/L (17-59); African American GFR (CKD) 50 (>60 ml/min/1.73 sqM); Albumin 3.7 g/dL (3.5-5.0); Alkaline Phosphatase 192 U/L (38-126); Anion Gap 13 mmol/L; Blood Urea Nitrogen 38 mg/dL (9-20); Calcium 8.6 mg/dL (8.4-10.2); Carbon Dioxide 27 mmol/L (22-30); Chloride 95 mmol/L (98-107); Glucose 102 mg/dL (74-99); Magnesium 1.9 mg/dL (1.6-2.3); Non-African American GFR(CKD) 43 (>60 ml/min/1.73 sqM); Sodium 135 mmol/L (137-145); Total Bilirubin 1.3 mg/dL (0.2-1.3); Total Protein 7.6 g/dL (6.3-8.2)
[2023-07-04 10:54] LABS: INR 1.4 (<1.2); Partial Thromboplastin Time 27.4 sec (22.0-30.0); Prothrombin Time 14.1 sec (10.0-12.5)
[2023-07-04 11:01] LABS: NT-Pro-B-Type Natriuretic Pept 15700 pg/mL
--- NOTE | 2023-07-04 11:37 | XR ---
EXAMINATION TYPE: XR chest 2V DATE OF EXAM: 07/04/2023 COMPARISON: 06/28/2023 TECHNIQUE: PA and lateral views submitted. HISTORY: Shortness of breath FINDINGS: The lungs are clear and there is no pneumothorax, pleural effusion, or focal pneumonia. Heart mildly enlarged. Osseous structures demonstrate hypertrophic and degenerative changes of the spine. Arts en larged and there is a single-lead cardiac device. Dialysis catheter stable. Mild interstitial promine nce. Bilateral AC joint arthropathy. Findings suggest COPD. IMPRESSION: 1. Correlate for mild venous congestion.
[2023-07-04] MEDS: ALBUTEROL HFA INHALER INHALATION STA (11:40)
--- NOTE | 2023-07-04 11:40 | XR ---
EXAMINATION TYPE: XR foot limited RT DATE OF EXAM: 07/04/2023 COMPARISON: 06/15/2023 HISTORY: Nonhealing wounds TECHNIQUE: Three views are submitted. FINDINGS: Arthropathy of the first MTP. There is a surgical resection appears to represent transmetatarsal pavel maria m. Diffuse osteopenia. There is erosive change involving the PIP joint third digit which is stable in their is sclerosis and truncation of the distal margin of the distal phalanx. Other remains fragme ntation and irregularity along the inferior margin of calcaneus with a lucency compatible with osteom yelitis. Soft tissue edema noted. IMPRESSION: 1. Osteomyelitis of the calcaneus with fragmentation inferiorly. 2. Postsurgical changes fifth digit. 3. Chronic erosive change PIP joint third digit. 4. Truncation of the tuft distal phalanx first digit may be on the basis of chronic osteomyelitis.
--- NOTE | 2023-07-04 11:43 | XR ---
EXAM TYPE: LUMBAR SPINE X RAY SERIES COMPARISON: 06/16/2023 HISTORY: Back pain TECHNIQUE: 4 views are submitted. FINDINGS: Alignment is anatomic. The pedicles are intact. The transverse processes are intact. There is post laminectomy changes lower lumbar spine. There is vascular calcifications and multilevel mild degenera tive disc disease most marked at L4-5. Advanced facet arthropathy with suspected multilevel foraminal encroachment. Surgical clips in the gallbladder fossa. Suspect contrast within the bowel. Vascular c alcifications. IMPRESSION: 1. Postsurgical change, multilevel degenerative disc disease, and alignment of the lumbar spine stabl e from prior exam. 2. Multilevel facet arthropathy suspect multilevel foraminal encroachment.
--- NOTE | 2023-07-04 11:44 | XR ---
EXAMINATION TYPE: XR pelvis AP view DATE OF EXAM: 07/04/2023 COMPARISON: NONE HISTORY: Pain The osseous structures are intact and the joint spaces are preserved. No acute fracture is seen. Con trast within bowel. SI joints symmetric. Sacral foramina stable. Bilateral hip arthropathy. Sclerosis involving the femoral head on the left could be as related to early osteonecrosis. IMPRESSION: 1. Bilateral hip arthropathy. 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
[2023-07-04] MEDS ORDERED: NALOXONE 0.4 MG/ML 1 ML VIAL IV PRN (11:50)
[2023-07-04] MEDS: IPRATROPIUM-ALBUTEROL 3 ML NEB INHALATION STA (12:27)
[2023-07-04] MEDS: FUROSEMIDE 10 MG/ML 10 ML VIAL IV SCH (12:37)
[2023-07-04] MEDS: FUROSEMIDE 10 MG/ML 4 ML VIAL IV STA (13:05)
[2023-07-04] MEDS ORDERED: ALBUTEROL HFA INHALER INHALATION PRN (13:14)
[2023-07-04] MEDS ORDERED: QUEtiapine 25 MG TAB PO PRN (13:14)
[2023-07-04] MEDS ORDERED: LACTULOSE 20 GM/30 ML CUP PO PRN (13:14)
[2023-07-04] MEDS: MIDODRINE 5 MG TAB PO STA (13:45)
[2023-07-04] MEDS: OLANZapine 5 MG TAB PO PRN (14:42)
[2023-07-04] MEDS: HYDROcodone/APAP 5-325MG 1 EACH TAB PO PRN (14:42)
[2023-07-04] MEDS: ALPRAZolam 0.25 MG TAB PO STA (14:42)
[2023-07-04] MEDS: DAPTOmycin 500 MG VIAL IV SCH (14:43)
[2023-07-04] MEDS: CEFEPIME 2 GM VIAL IVPB SCH (14:43)
[2023-07-04] MEDS: ALBUTEROL HFA INHALER INHALATION SCH (15:23)
[2023-07-04] MEDS ORDERED: IPRATROPIUM-ALBUTEROL 3 ML NEB INHALATION SCH (16:00)
[2023-07-04] MEDS: MIDODRINE 5 MG TAB PO SCH (17:58)
[2023-07-04] MEDS: metroNIDAZOLE 500 MG TAB PO SCH (17:58)
[2023-07-04] MEDS: SODIUM BICARBONATE TAB 650 MG TAB PO SCH (17:58)
[2023-07-04] MEDS: HEPARIN SODIUM,PORCINE 5,000 UNIT/ML 1 ML VIAL SQ SCH (17:59)
[2023-07-04] MEDS: CEFEPIME 2 GM in SODIUM CHLORIDE 0.9% 100 ML IVPB SCH (20:50)
[2023-07-04] MEDS: traZODone HCL 50 MG TAB PO PRN (20:51)
[2023-07-04] MEDS: QUEtiapine 25 MG TAB PO SCH (20:51)
[2023-07-04] MEDS: METOPROLOL TARTRATE 25 MG TAB PO SCH (20:51)
[2023-07-04] MEDS: DAPTOmycin 500 MG in SODIUM CHLORIDE 0.9% 50 ML IVPB SCH (21:21)
--- NOTE | 2023-07-04 21:48 | P.CONS ---
History of Present Illness - Reason for Consult Consult date: 07/04/23 Right foot wound, covid 19 infection Requesting physician: Hans Wall - Chief Complaint Shortness of breath x one day - History of Present Illness Patient is a 53-year-old male with a past medical history significant for diabetes mellitus hypertension hyperlipidemia LA patient did have right heel diabetic foot infection underlying osteomyelitis initial cultures were positive for Proteus Streptococcus with recent culture positive for MRSA and the patient has been on course of IV Zosyn and daptomycin that was switched over to cefepime and daptomycin through dialysis and oral Flagyl as the patient was recently discharged to the local snf patient has been brought back to the hospital within 48 hours of discharge concerning for increasing shortness of breath apparently the patient was receiving dialysis when received a dose of Benadryl and the patient started having increasing shortness of breath for the patient was brought into the hospital patient denies having any chest pain did have mild cough no sputum production patient denies any nausea no vomiting no choking on the phone abdominal burning diarrhea denies pain to the right heel wound area with recently the patient has been evaluated on presentation to the hospital the patient was afebrile no fever have recorded subsequently did have vital of 11,000 with left shift BUN/creatinine has been mildly elevated patient did test positive for COVID did have a chest x-ray [place] mild venous congestion patient also has x-ray of the foot osteomyelitis the calcaneus with fragmentation inferiorly patient has been continued on daptomycin cefepime infectious disease was consulted for further management of antibiotic therapy patient presented to the hospital was not hypoxic currently on a 2 L nasal cannula oxygen Review of Systems Positive point and negatives has been mentioned in the HPI, complete review of systems was performed and all other systems are negative Past Medical History Past Medical History: Asthma, Coronary Artery Disease (CAD), Chest Pain / Angina, Heart Failure, COPD, Diabetes Mellitus, GERD/Reflux, Hyperlipidemia, Hypertension, Myocardial Infarction (LA), Pneumonia, Sleep Apnea/CPAP/BIPAP, Supraventricular Tachycardia (SVT) Additional Past Medical History / Comment(s): Ischemic cardiomyopathy, chronic CHF, SVT, IDDM type II, KAMINI with CPAP occasionally used, chronic cervical/back pain, DJD, diabetic foot wounds x 4 months. Last Myocardial Infarction Date:: 12/11/17 History of Any Multi-Drug Resistant Organisms: MRSA Year Discovered:: 06/15/23 MDRO Source:: Right Foot Past Surgical History: Adenoidectomy, AICD, Back Surgery, Cholecystectomy, EPS, Heart Catheterization, Pacemaker, Tonsillectomy Additional Past Surgical History / Comment(s): 12/10/17 cardiac cath, previous cardiac cath, 09/02/14 AICD/pacer, EGD/colonoscopy, low back surgery with fusion. Past Anesthesia/Blood Transfusion Reactions: Motion Sickness Additional Past Anesthesia/Blood Transfusion Reaction / Comm: Pt states he received blood with back surgery without reaction. Type of Cardiac Device: Permanent Pacemaker, AICD Device Placement Date:: 09-02-14 Past Psychological History: ADD/ADHD, Anxiety Additional Psychological History / Comment(s): Pt lives with his old son. There are cats in the home. Pt is very independent. He states he would like a walker d/t his L foot wound. He drives. Pt states he has ADHD. Pt is disabled. He has a glucometer and nebulizer. The patient worked in the past building [employer] and [employer]. Smoking Status: Current every day smoker Past Alcohol Use History: Occasional Additional Past Alcohol Use History / Comment(s): patient states that he quit smoking 3 weeks ago Past Drug Use History: Marijuana Additional Drug Use History / Comment(s): Occasional marijuana use. - Past Family History Father Additional Family Medical History / Comment(s): Pt has not kept in close contact with his father for many yrs. Father was an alcoholic and pt believes he has from cirrhosis of the liver. Mother History Unknown: Yes Additional Family Medical History / Comment(s): Pt is not in contact with his mother or his father who he has heard had . Medications and Allergies Home Medications Medication Instructions Recorded Confirmed Type Albuterol Inhaler [Ventolin Hfa 2 puff INHALATION RT-QID PRN 07/06/22 07/04/23 History Inhaler] SILVER sulfADIAZINE CREAM 1 applic TOPICAL BID@0800,1700 06/04/23 07/04/23 History [Silvadene Cream] Acetaminophen Tab [Tylenol] 650 mg PO Q6HR PRN tab 07/02/23 07/04/23 Rx Cefepime [Maxipime] 2 gm IVP Q48H #12 each 07/02/23 07/04/23 Rx DAPTOmycin [Cubicin] 600 mg IV Q48H #12 each 07/02/23 07/04/23 Rx DULoxetine HCL [Cymbalta] 30 mg PO DAILY cap 07/02/23 07/04/23 Rx Folic Acid 1 mg PO DAILY tab 07/02/23 07/04/23 Rx Ipratropium-Albuterol Nebulize 3 ml INHALATION RT-QID each 07/02/23 07/04/23 Rx [Duoneb 0.5 mg-3 mg/3 ml Soln] Lactulose [Cephulac] 20 gm PO DAILY PRN ml 07/02/23 07/04/23 Rx OLANZapine [ZyPREXA] 5 mg PO TID PRN tab 07/02/23 07/04/23 Rx Thiamine [Vitamin B-1] 100 mg PO DAILY #30 tablet 07/02/23 07/04/23 Rx fluPHENAZine [Prolixin] 3 mg PO HS tab 07/02/23 07/04/23 Rx traZODone HCL [Desyrel] 50 mg PO HS PRN tab 07/02/23 07/04/23 Rx Aspirin 81 mg PO DAILY 07/04/23 07/04/23 History Famotidine [Pepcid] 20 mg PO DAILY 07/04/23 07/04/23 History Heparin Sodium,Porcine (1 ml) 5,000 unit SQ TID@0700,1500,2300 07/04/23 07/04/23 History [Heparin Sodium] Insulin Glargine,Hum.rec.anlog 28 units SQ HS 07/04/23 07/04/23 History [Toujeo Solostar] Metoprolol Tartrate [Lopressor] 25 mg PO BID 07/04/23 07/04/23 History Midodrine HCl [ProAmatine] 10 mg PO TID@0730,1100,1600 07/04/23 07/04/23 History Multivitamins, Thera [Multivitamin 1 tab PO DAILY 07/04/23 07/04/23 History (formulary)] QUEtiapine [SEROquel] 12.5 mg PO BID 07/04/23 07/04/23 History QUEtiapine [SEROquel] 12.5 mg PO BID PRN 07/04/23 07/04/23 History Torsemide [Soaanz] 40 mg PO SUMOWEFR@0700 07/04/23 07/04/23 History Torsemide [Soaanz] 40 mg PO TUTHSA@1000 07/04/23 07/04/23 History Ascorbic Acid [Vitamin C] 1,000 mg PO DAILY tab 07/09/23 Rx Cefepime [Maxipime] 2 gm IVPB Q48H #10 each 07/09/23 Rx DAPTOmycin [Cubicin] 500 mg IVPB Q48H #10 each 07/09/23 Rx HYDROcodone/APAP 5-325MG [[place] 1 tab PO Q6HR PRN #4 tab 07/09/23 Rx 5-325] INSULIN ASPART (NovoLOG) [NovoLOG 0 unit SQ ACHS each 07/09/23 Rx (formulary)] INSULIN ASPART (NovoLOG) [NovoLOG 5 unit SQ AC-TID each 07/09/23 Rx (formulary)] Midodrine [ProAmatine] 5 - 10 mg PO PER PROTOCOL PRN tab 07/09/23 Rx Zinc Sulfate [Orazinc] 220 mg PO DAILY 14 Days #14 cap 07/09/23 Rx metroNIDAZOLE [Flagyl] 500 mg PO TID@0700,1500,2300 10 07/09/23 07/04/23 Rx Days #30 capsule Allergies Allergy/AdvReac Type Severity Reaction Status Date / Time azithromycin Allergy Anaphylaxis Verified 07/04/23 12:16 gemfibrozil [From Lopid] Allergy Rash/Hives Verified 07/04/23 12:16 Physical Exam Vitals: Vital Signs Temp Pulse Resp BP Pulse Ox 07/04/23 10:12 98.6 F 104 H 30 H 95/73 95 Intake and Output 07/03/23 07/04/23 07/04/23 22:59 06:59 14:59 Other: Weight 102.058 kg GENERAL DESCRIPTION: Middle-aged male lying in bed, no distress. No tachypnea or accessory muscle of respiration use. HEENT: Shows Pallor , no scleral icterus. Oral mucous membrane is dry. No pharyngeal erythema or thrush NECK: Trachea central, no thyromegaly. LUNGS: Unlabored breathing. Coarse breath sounds bilaterally. HEART: S1, S2, regular rate and rhythm. No loud murmur ABDOMEN: Soft, no tenderness , guarding or rigidity, no organomegaly EXTREMITIES: Right foot plantar wound at the heel with no significant slough tissue and necrotic area and no foul-smelling drainage SKIN: No rash, no masses palpable. NEUROLOGICAL: The patient is awake, alert, oriented x3, mood and affect normal. Results CBC & Chem 7: 07/09/23 07:35 07/09/23 07:35 Labs: Abnormal Lab Results - Last 24 Hours (Table) 07/04/23 07/04/23 07/04/23 Range/Units 10:19 10:19 10:19 WBC 11.0 H (3.8-10.6) k/uL RBC 4.29 L (4.30-5.90) m/uL Hgb 12.0 L (13.0-17.5) gm/dL MCHC 30.9 L (31.0-37.0) g/dL RDW 16.5 H (11.5-15.5) % Neutrophils # 8.1 H (1.3-7.7) k/uL PT 14.1 H (10.0-12.5) sec INR 1.4 H (<1.2) Sodium 135 L (137-145) mmol/L Chloride 95 L (98-107) mmol/L BUN 38 H (9-20) mg/dL Creatinine 1.75 H (0.66-1.25) mg/dL Glucose 102 H (74-99) mg/dL ALT 50 H (4-49) U/L Alkaline Phosphatase 192 H (38-126) U/L SARS-CoV-2 (PCR) (Not Detectd) 07/04/23 Range/Units 10:19 WBC (3.8-10.6) k/uL RBC (4.30-5.90) m/uL Hgb (13.0-17.5) gm/dL MCHC (31.0-37.0) g/dL RDW (11.5-15.5) % Neutrophils # (1.3-7.7) k/uL PT (10.0-12.5) sec INR (<1.2) Sodium (137-145) mmol/L Chloride (98-107) mmol/L BUN (9-20) mg/dL Creatinine (0.66-1.25) mg/dL Glucose (74-99) mg/dL ALT (4-49) U/L Alkaline Phosphatase (38-126) U/L SARS-CoV-2 (PCR) Detected A (Not Detectd) Assessment and Plan (1) COVID-19 virus infection Status: Acute Code(s): U07.1 - COVID-19 SNOMED Code(s): 563817265 (2) Chronic ulcer of right foot with fat layer exposed Status: Acute Code(s): L97.512 - NON-PRS CHRONIC ULCER OTH PRT RIGHT FOOT W FAT LAYER EXPOSED SNOMED Code(s): 23552436347726478 (3) Foot osteomyelitis, right Status: Acute Code(s): M86.9 - OSTEOMYELITIS, UNSPECIFIED SNOMED Code(s): 3988747945244133 (4) Type 2 diabetes mellitus with right diabetic foot ulcer Status: Acute Code(s): E11.621 - TYPE 2 DIABETES MELLITUS WITH FOOT ULCER; L97.519 - NON-PRS CHRONIC ULCER OTH PRT RIGHT FOOT W UNSP SEVERITY SNOMED Code(s): 075612313 Plan: 1patient presented to hospital with increasing shortness of breath and this patient who did have a complicated history with the right heel diabetic foot infection underlying osteomyelitis with multiple pathogens recently extended stay in the hospital and now presenting back with shortness of breath did tested positive for COVID-19 however no significant groundglass opacities seen on chest x-ray and the patient did not have significant hypoxemia or respiratory symptoms treatment will be mostly supportive 2-patient with a right heel osteomyelitis diabetic foot infection with multiple pathogen including MRSA Proteus strep and providencia along with anaerobes 3-patient to continue the daptomycin cefepime Flagyl 4-we will add zinc and ascorbic acid continue with heparin no need for steroids or remdesivir 5droplet isolation 6local wound care to the right heel wound with a Aquacel silver dressing change every 48 hours and keep the area of the pressure We will follow on clinical condition and cultures to further adjust medication if needed Thank you for this consultation we will follow the patient along with you Dictation was produced using [employer] software. please excuse any grammatical, word or spelling errors. Time with Patient: Greater than 30
--- NOTE | 2023-07-05 00:53 | P.HPIM ---
History of Present Illness H&P Date: 07/04/23 This is a 53-year-old male who was brought to the emergency department via EMS with increasing shortness of breath while at dialysis and unable to tolerate cycle and was found to have significant volume overload as well as being positive for COVID-19. Patient was recently discharged on the fifth of this month to [facility] for continued antibiotic therapy along with dialysis and significant weakness. Patient had renal failure secondary to cardiorenal syndrome and was started on dialysis on last admission. Patient is continued on Saturday//Saturday and wasn't able to tolerate the session of dialysis today. Patient sent to the hospital for further evaluation. P atient follows with Dr. Rodríguez in the outpatient setting with a past medical history of asthma, coronary artery disease, chronic systolic heart failure, COPD, diabetes mellitus, GERD, hyperlipidemia, hypertension, previous myocardial infarctions, sleep apnea with use of CPAP, SVT, ischemic cardiomyopathy and chronic nonhealing diabetic foot wounds that was suggestive of osteomyelitis. Patient was discharged on antibiotics and to be continued during dialysis per ID recommendations for chronic lower extremity wounds with suggestions of osteomyelitis. Patient is extremely noncompliant with medications and overall care including uncontrolled diabetes and continued nicotine dependence. Patient was admitted with shortness of breath with hypoxia secondary to volume overload and was also found to be COVID-19 positive. Infectious disease was consulted along with nephrology. BNP was 15,000 on admission. Review Of Systems: Constitutional: No fever, no chills, no night sweats. No weight change. No weakness, fatigue or lethargy. No daytime sleepiness. EENT: No headache. No blurred vision or double vision, no loss of vision. No loss of Hearing, no ringing in the ears, no dizziness. No nasal drainage or congestion. No epistaxis. No sore throat. Lungs: Reports shortness of breath requiring oxygen, cough, no sputum production. No wheezing. Cardiovascular: No chest pain, no lower extremity edema. No palpitations. No paroxysmal nocturnal dyspnea. No orthopnea. No lightheadedness or dizziness. No syncopal episodes. Abdominal: No abdominal pain. No nausea, vomiting. No diarrhea. No constipation. No bloody or tarry stools.. No loss of appetite. Genitourinary: No dysuria, increased frequency, urgency. No urinary retention. Musculoskeletal: No myalgias. No muscle weakness, no gait dysfunction, no frequent falls. No back pain. No neck pain. Integumentary: Reports ongoing lower extremity wounds and reports improvement in the redness and swelling of lower extremities, no lesions. No rash or pruritus. No unusual bruising. No change in hair or nails. Neurologic: No aphasia. No facial droop. No change in mentation. No head injury. No headache. No paralysis. No paresthesia. Psychiatric: No depression. No anxiety. No mood swings. Endocrine: No abnormal blood sugars. No weight change. No excessive sweating or thirst. No cold intolerance. PHYSICAL EXAMINATION: GENERAL: The patient is alert and oriented x2-3 baseline, Well developed, unkempt, elderly appearing, obese HEENT: Pupils are round and equally reacting to light. EOMI. no scleral icterus. No conjunctival pallor. Normocephalic, atraumatic. No pharyngeal erythema. No thyromegaly. CARDIOVASCULAR: S1 and S2 muffled PULMONARY: diminished breath sounds bilaterally with no wheezing, some faint crackles and coarse rhonchi noted at the bases. ABDOMEN: soft. Nontender on exam. obese. non-distended, normoactive bowel sounds. No palpable organomegaly. MUSCULOSKELETAL: No joint swelling or deformity. EXTREMITIES: No cyanosis, clubbing, or pedal edema. Bilateral lower extremity swelling with some improvement in erythema and wounds noted on the right lower extremity, currently dressed with Kerlix dressing NEUROLOGICAL: Gross neurological examination did not reveal any focal deficits. Diffuse weakness SKIN: No rashes. Assessment: -Shortness of breath with acute hypoxic respiratory failure, likely secondary to volume overload with cardiorenal syndrome -Acute COVID-19 infection -Congestive heart failure with chronic systolic dysfunction, EF of 20% with nonischemic cardiomyopathy -Acute on chronic right lower leg cellulitis with MRSA, was maintained on antibiotics during dialysis on recent admission -Continued Infected right heel decubitus ulcer with evidence of osteomyelitis -Chronic obstructive pulmonary disease, not in exacerbation -Diabetes mellitus, type II uncontrolled with hyperglycemia -Acute renal failure with ATN from cardiorenal syndrome, worsening renal function patient has been started on hemodialysis and most recent admission maintained on Saturday//Saturday -Lower extremity chronic venous insufficiency -Hyperlipidemia -Chronic kidney disease stage III from diabetic nephropathy and nephrosclerosis -moderate to severe MR/moderate TR and severe pulmonary hypertension -Chronic low back pain. -Hypotension maintained on midodrine -Obstructive sleep apnea sometimes uses CPAP machine -Diabetic peripheral neuropathy -Anxiety -DJD -AICD -Obesity with a BMI of 31.4 -GI prophylaxis -DVT prophylaxis -Full Code Plan: Recommend to continue with current medications and management and nephrology along with infectious disease has been consulted. Patient currently undergoing hemodialysis at the bedside as patient was unable to tolerate earlier session due to significant hypoxia Patient tested positive for COVID-19 on ED admission and is currently maintained on 2 L of oxygen via nasal cannula. Patient reports that now her oxygen outpatient and recommended wean FiO2 as tolerated Patient had significant volume overload with BNP of over 15,000 Antibiotics have been resumed as patient was on daptomycin, oral Flagyl, and cefepime with infectious disease following for continued right lower extremity cellulitis with osteomyelitis Continue local wound care per infectious disease recommendations and have instructed the patient to elevate lower extremity swelling rest. Erythema noted to lower extremities appear to be slightly improved from a few days previously Home medications reviewed and resumed as appropriate Continue monitoring Accu-Cheks before meals and at bedtime and continue with current medication regimen PT/OT for evaluation billing collections specialist were consulted as patient will likely need to return to ECF and/or have outpatient dialysis arranged and significant needs for discharge planning Patient is extremely noncompliant with medications and follow-up in he continues to be high risk for readmissions given patient's significant comorbidities Due to multiple complex medical issues, prognosis is guarded The impression and plan of care has been dictated by Loraine Shearer, nurse practitioner as directed. Dr. Katie MD I have performed a history and examination and MDM of this patient, discussed the same with the dictator, and agree with the dictator's assessment and plan as written ,documented as a scribe. Based on total visit time, I have performed more than 50% of the visit. Any additional findings or plans will be noted. Past Medical History Past Medical History: Asthma, Coronary Artery Disease (CAD), Chest Pain / Angina, Heart Failure, COPD, Diabetes Mellitus, GERD/Reflux, Hyperlipidemia, Hypertension, Myocardial Infarction ([place]), Pneumonia, Sleep Apnea/CPAP/BIPAP, Supraventricular Tachycardia (SVT) Additional Past Medical History / Comment(s): Ischemic cardiomyopathy, chronic CHF, SVT, IDDM type II, KAMINI with CPAP occasionally used, chronic cervical/back pain, DJD, diabetic foot wounds x 4 months. Last Myocardial Infarction Date:: 12/11/17 History of Any Multi-Drug Resistant Organisms: MRSA Date of last positivie culture/infection: 06/15/23 MDRO Source:: Right Foot Past Surgical History: Adenoidectomy, AICD, Back Surgery, Cholecystectomy, EPS, Heart Catheterization, Pacemaker, Tonsillectomy Additional Past Surgical History / Comment(s): 12/10/17 cardiac cath, previous cardiac cath, 09/02/14 AICD/pacer, EGD/colonoscopy, low back surgery with fusion. Past Anesthesia/Blood Transfusion Reactions: Motion Sickness Additional Past Anesthesia/Blood Transfusion Reaction / Comment(s): Pt states he received blood with back surgery without reaction. Type of Cardiac Device: Permanent Pacemaker, AICD Device Placement Date:: 09-02-14 Past Psychological History: ADD/ADHD, Anxiety Additional Psychological History / Comment(s): Pt lives with his old son. There are cats in the home. Pt is very independent. He states he would like a walker d/t his L foot wound. He drives. Pt states he has ADHD. Pt is disabled. He has a glucometer and nebulizer. The patient worked in the past building [employer] and [employer]. Smoking Status: Current every day smoker Past Alcohol Use History: Occasional Additional Past Alcohol Use History / Comment(s): patient states that he quit smoking 3 weeks ago Past Drug Use History: Marijuana Additional Drug Use History / Comment(s): Occasional marijuana use. - Past Family History Father Additional Family Medical History / Comment(s): Pt has not kept in close contact with his father for many yrs. Father was an alcoholic and pt believes he has from cirrhosis of the liver. Mother History Unknown: Yes Additional Family Medical History / Comment(s): Pt is not in contact with his mother or his father who he has heard had . Medications and Allergies Home Medications Medication Instructions Recorded Confirmed Type Albuterol Inhaler [Ventolin Hfa 2 puff INHALATION RT-QID PRN 07/06/22 07/04/23 History Inhaler] SILVER sulfADIAZINE CREAM 1 applic TOPICAL BID@0800,1700 06/04/23 07/04/23 History [Silvadene Cream] Acetaminophen Tab [Tylenol] 650 mg PO Q6HR PRN tab 07/02/23 07/04/23 Rx Cefepime [Maxipime] 2 gm IVP Q48H #12 each 07/02/23 07/04/23 Rx DAPTOmycin [Cubicin] 600 mg IV Q48H #12 each 07/02/23 07/04/23 Rx DULoxetine HCL [Cymbalta] 30 mg PO DAILY cap 07/02/23 07/04/23 Rx Folic Acid 1 mg PO DAILY tab 07/02/23 07/04/23 Rx Ipratropium-Albuterol Nebulize 3 ml INHALATION RT-QID each 07/02/23 07/04/23 Rx [Duoneb 0.5 mg-3 mg/3 ml Soln] Lactulose [Cephulac] 20 gm PO DAILY PRN ml 07/02/23 07/04/23 Rx OLANZapine [ZyPREXA] 5 mg PO TID PRN tab 07/02/23 07/04/23 Rx Thiamine [Vitamin B-1] 100 mg PO DAILY #30 tablet 07/02/23 07/04/23 Rx fluPHENAZine [Prolixin] 3 mg PO HS tab 07/02/23 07/04/23 Rx traZODone HCL [Desyrel] 50 mg PO HS PRN tab 07/02/23 07/04/23 Rx Aspirin 81 mg PO DAILY 07/04/23 07/04/23 History Famotidine [Pepcid] 20 mg PO DAILY 07/04/23 07/04/23 History HYDROcodone/APAP 5-325MG [[place] 1 tab PO Q6HR PRN 07/04/23 07/04/23 History 5-325] Heparin Sodium,Porcine (1 ml) 5,000 unit SQ TID@0700,1500,2300 07/04/23 07/04/23 History [Heparin Sodium] INSULIN LISPRO (HumaLOG) [humaLOG] See Protocol SQ ACHS 07/04/23 07/04/23 History Insulin Glargine,Hum.rec.anlog 28 units SQ HS 07/04/23 07/04/23 History [Toujeo Solostar] Metoprolol Tartrate [Lopressor] 25 mg PO BID 07/04/23 07/04/23 History Midodrine HCl [ProAmatine] 10 mg PO TID@0730,1100,1600 07/04/23 07/04/23 History Multivitamins, Thera [Multivitamin 1 tab PO DAILY 07/04/23 07/04/23 History (formulary)] QUEtiapine [SEROquel] 12.5 mg PO BID 07/04/23 07/04/23 History QUEtiapine [SEROquel] 12.5 mg PO BID PRN 07/04/23 07/04/23 History Sodium Bicarbonate Tab 650 mg PO BID@0730,1600 07/04/23 07/04/23 History Torsemide [Soaanz] 40 mg PO SUMOWEFR@0700 07/04/23 07/04/23 History Torsemide [Soaanz] 40 mg PO TUTHSA@1000 07/04/23 07/04/23 History metroNIDAZOLE [Flagyl] 500 mg PO TID@0700,1500,2300 07/04/23 07/04/23 History Allergies Allergy/AdvReac Type Severity Reaction Status Date / Time azithromycin Allergy Anaphylaxis Verified 07/04/23 12:16 gemfibrozil [From Lopid] Allergy Rash/Hives Verified 07/04/23 12:16 Physical Exam Vitals: Vital Signs Temp Pulse Resp BP Pulse Ox 07/04/23 13:00 108 H 22 118/81 98 07/04/23 12:30 104 H 24 125/109 100 07/04/23 12:00 106 H 24 97/76 99 07/04/23 11:30 101 H 20 58/44 100 07/04/23 11:00 102 H 22 103/77 97 07/04/23 10:30 101 H 24 94/71 97 07/04/23 10:12 98.6 F 104 H 30 H 95/73 95 Intake and Output 07/03/23 07/04/23 07/04/23 22:59 06:59 14:59 Other: Weight 102.058 kg Results CBC & Chem 7: 07/04/23 10:19 07/04/23 10:19 Labs: Abnormal Lab Results - Last 24 Hours (Table) 07/04/23 07/04/23 07/04/23 Range/Units 10:19 10:19 10:19 WBC 11.0 H (3.8-10.6) k/uL RBC 4.29 L (4.30-5.90) m/uL Hgb 12.0 L (13.0-17.5) gm/dL MCHC 30.9 L (31.0-37.0) g/dL RDW 16.5 H (11.5-15.5) % Neutrophils # 8.1 H (1.3-7.7) k/uL PT 14.1 H (10.0-12.5) sec INR 1.4 H (<1.2) Sodium 135 L (137-145) mmol/L Chloride 95 L (98-107) mmol/L BUN 38 H (9-20) mg/dL Creatinine 1.75 H (0.66-1.25) mg/dL Glucose 102 H (74-99) mg/dL ALT 50 H (4-49) U/L Alkaline Phosphatase 192 H (38-126) U/L SARS-CoV-2 (PCR) (Not Detectd) 07/04/23 Range/Units 10:19 WBC (3.8-10.6) k/uL RBC (4.30-5.90) m/uL Hgb (13.0-17.5) gm/dL MCHC (31.0-37.0) g/dL RDW (11.5-15.5) % Neutrophils # (1.3-7.7) k/uL PT (10.0-12.5) sec INR (<1.2) Sodium (137-145) mmol/L Chloride (98-107) mmol/L BUN (9-20) mg/dL Creatinine (0.66-1.25) mg/dL Glucose (74-99) mg/dL ALT (4-49) U/L Alkaline Phosphatase (38-126) U/L SARS-CoV-2 (PCR) Detected A (Not Detectd) Thrombosis Risk Factor Assmnt - DVT/VTE Prophylaxis DVT/VTE Prophylaxis: Pharmacologic Prophylaxis ordered Assessment and Plan Time with Patient: Greater than 30
[2023-07-05] MEDS: TIOTROPIUM 2.5 MCG INHALER INHALATION SCH (07:44)
[2023-07-05] MEDS: TORSEMIDE 20 MG TAB PO SCH (08:04)
[2023-07-05] MEDS: DULoxetine HCL 30 MG CAPSULE.DR PO SCH (08:05)
[2023-07-05] MEDS: ZINC SULFATE 220 MG CAP PO SCH (09:45)
[2023-07-05] MEDS: ASCORBIC ACID 500 MG TAB PO SCH (09:45)
[2023-07-05] MEDS: MULTIVITAMINS, THERA 1 EACH TAB PO SCH (09:45)
[2023-07-05] MEDS: THIAMINE 100 MG TAB PO SCH (09:45)
[2023-07-05] MEDS: FOLIC ACID 1 MG TAB PO SCH (09:45)
[2023-07-05] MEDS: FAMOTIDINE 20 MG TAB PO SCH (09:46)
[2023-07-05] MEDS: ASPIRIN 81 MG PO SCH (09:46)
[2023-07-05 11:27] LABS: Basophils # (A) 0.01 X 10*3/uL (0.00-0.10); Basophils % (A) 0.1 %; Eosinophils # (A) 0 X 10*3/uL (0.04-0.35); Eosinophils % (A) 0 %; HCT 37.2 % (39.6-50.0); HGB 11.6 g/dL (13.0-17.0); Lymphocytes # (A) 0.77 X 10*3/uL (0.90-5.00); Lymphocytes % (A) 7.6 %; MCH 27.2 pg (27.0-32.0); MCHC 31.2 g/dL (32.0-37.0); MCV 87.1 FL (80.0-97.0); Mean Platelet Volume 12.1 FL (9.5-12.2); Monocytes # (A) 0.43 X 10*3/uL (0.20-1.00); Monocytes % (A) 4.3 %; NRBC Per 100 WBC 0 X 10*3/uL (0.00-0.01); Neutrophils # (A) 8.81 X 10*3/uL (1.80-7.70); Neutrophils % (A) 87.5 %; Platelet Count 181 X 10*3/uL (140-440); RBC 4.27 X 10*6/uL (4.40-5.60); RDW 18.1 % (11.5-14.5); WBC 10.07 X 10*3/uL (4.50-10.00)
--- NOTE | 2023-07-05 11:34 | P.NPCON ---
History of Present Illness - Reason for Consult end stage renal disease - History of Present Illness Patient is a 53-year-old male with chronic kidney disease, recently started on hemodialysis on 06/22/2023 during [address] last hospitalization [address] creatinine had peaked to 6.4 with significant volume overload. Patient did not tolerate dialysis as outpatient and complained of shortness of breath and was therefore admitted back to the hospital. He was discharged on 07/02/2023. No history of fever or chills. Patient tested positive for COVID-19. Patient was not able to get antibiotics for cellulitisOff lower extremity as he did not stay for his dialysis treatment. Continues to have decent urine output and is maintained on IV Lasix. Review of Systems As per HPI Past Medical History Past Medical History: Asthma, Coronary Artery Disease (CAD), Chest Pain / Angina, Heart Failure, COPD, Diabetes Mellitus, GERD/Reflux, Hyperlipidemia, H ypertension, Myocardial Infarction ([place]), Pneumonia, Sleep Apnea/CPAP/BIPAP, Supraventricular Tachycardia (SVT) Additional Past Medical History / Comment(s): Ischemic cardiomyopathy, chronic CHF, SVT, IDDM type II, KAMINI with CPAP occasionally used, chronic cervical/back pain, DJD, diabetic foot wounds x 4 months. Last Myocardial Infarction Date:: 12/11/17 History of Any Multi-Drug Resistant Organisms: MRSA Date of last positivie culture/infection: 06/15/23 MDRO Source:: Right Foot Past Surgical History: Adenoidectomy, AICD, Back Surgery, Cholecystectomy, EPS, Heart Catheterization, Pacemaker, Tonsillectomy Additional Past Surgical History / Comment(s): 12/10/17 cardiac cath, previous cardiac cath, 09/02/14 AICD/pacer, EGD/colonoscopy, low back surgery with fusion. Past Anesthesia/Blood Transfusion Reactions: Motion Sickness Additional Past Anesthesia/Blood Transfusion Reaction / Comment(s): Pt states he received blood with back surgery without reaction. Type of Cardiac Device: Permanent Pacemaker, AICD Device Placement Date:: 09-02-14 Past Psychological History: ADD/ADHD, Anxiety Additional Psychological History / Comment(s): Pt lives with his old son. There are cats in the home. Pt is very independent. He states he would like a walker d/t his L foot wound. He drives. Pt states he has ADHD. Pt is disabled. He has a glucometer and nebulizer. The patient worked in the past building [employer] and [employer]. Smoking Status: Current every day smoker Past Alcohol Use History: Occasional Additional Past Alcohol Use History / Comment(s): patient states that he quit smoking 3 weeks ago Past Drug Use History: Marijuana Additional Drug Use History / Comment(s): Occasional marijuana use. - Past Family History Father Additional Family Medical History / Comment(s): Pt has not kept in close contact with his father for many yrs. Father was an alcoholic and pt believes he has from cirrhosis of the liver. Mother History Unknown: Yes Additional Family Medical History / Comment(s): Pt is not in contact with his mother or his father who he has heard had . Medications and Allergies Home Medications Medication Instructions Recorded Confirmed Type Albuterol Inhaler [Ventolin Hfa 2 puff INHALATION RT-QID PRN 07/06/22 07/04/23 History Inhaler] SILVER sulfADIAZINE CREAM 1 applic TOPICAL BID@0800,1700 06/04/23 07/04/23 History [Silvadene Cream] Acetaminophen Tab [Tylenol] 650 mg PO Q6HR PRN tab 07/02/23 07/04/23 Rx Cefepime [Maxipime] 2 gm IVP Q48H #12 each 07/02/23 07/04/23 Rx DAPTOmycin [Cubicin] 600 mg IV Q48H #12 each 07/02/23 07/04/23 Rx DULoxetine HCL [Cymbalta] 30 mg PO DAILY cap 07/02/23 07/04/23 Rx Folic Acid 1 mg PO DAILY tab 07/02/23 07/04/23 Rx Ipratropium-Albuterol Nebulize 3 ml INHALATION RT-QID each 07/02/23 07/04/23 Rx [Duoneb 0.5 mg-3 mg/3 ml Soln] Lactulose [Cephulac] 20 gm PO DAILY PRN ml 07/02/23 07/04/23 Rx OLANZapine [ZyPREXA] 5 mg PO TID PRN tab 07/02/23 07/04/23 Rx Thiamine [Vitamin B-1] 100 mg PO DAILY #30 tablet 07/02/23 07/04/23 Rx fluPHENAZine [Prolixin] 3 mg PO HS tab 07/02/23 07/04/23 Rx traZODone HCL [Desyrel] 50 mg PO HS PRN tab 07/02/23 07/04/23 Rx Aspirin 81 mg PO DAILY 07/04/23 07/04/23 History Famotidine [Pepcid] 20 mg PO DAILY 07/04/23 07/04/23 History HYDROcodone/APAP 5-325MG [[place] 1 tab PO Q6HR PRN 07/04/23 07/04/23 History 5-325] Heparin Sodium,Porcine (1 ml) 5,000 unit SQ TID@0700,1500,2300 07/04/23 07/04/23 History [Heparin Sodium] INSULIN LISPRO (HumaLOG) [humaLOG] See Protocol SQ ACHS 07/04/23 07/04/23 History Insulin Glargine,Hum.rec.anlog 28 units SQ HS 07/04/23 07/04/23 History [Toujeo Solostar] Metoprolol Tartrate [Lopressor] 25 mg PO BID 07/04/23 07/04/23 History Midodrine HCl [ProAmatine] 10 mg PO TID@0730,1100,1600 07/04/23 07/04/23 History Multivitamins, Thera [Multivitamin 1 tab PO DAILY 07/04/23 07/04/23 History (formulary)] QUEtiapine [SEROquel] 12.5 mg PO BID 07/04/23 07/04/23 History QUEtiapine [SEROquel] 12.5 mg PO BID PRN 07/04/23 07/04/23 History Sodium Bicarbonate Tab 650 mg PO BID@0730,1600 07/04/23 07/04/23 History Torsemide [Soaanz] 40 mg PO SUMOWEFR@0700 07/04/23 07/04/23 History Torsemide [Soaanz] 40 mg PO TUTHSA@1000 07/04/23 07/04/23 History metroNIDAZOLE [Flagyl] 500 mg PO TID@0700,1500,2300 07/04/23 07/04/23 History Allergies Allergy/AdvReac Type Severity Reaction Status Date / Time azithromycin Allergy Anaphylaxis Verified 07/04/23 12:16 gemfibrozil [From Lopid] Allergy Rash/Hives Verified 07/04/23 12:16 Physical Exam Vitals: Vital Signs Temp Pulse Pulse Resp BP BP Pulse Ox 07/05/23 09:47 97.1 F L 101 H 22 113/74 97 07/05/23 07:47 96 07/05/23 07:00 92 15 105/74 100 07/05/23 01:00 80 20 97/63 95 07/04/23 22:30 84 10 L 07/04/23 22:15 86 28 H 07/04/23 22:00 89 20 07/04/23 21:45 95 19 07/04/23 21:30 101 H 24 132/80 07/04/23 21:15 104 H 20 07/04/23 18:00 107 H 21 107/70 07/04/23 17:00 105 H 20 100/81 100 07/04/23 16:15 97.3 F L 112 H 22 107/79 07/04/23 16:00 113 H 20 107/79 100 07/04/23 15:00 109 H 24 105/83 98 07/04/23 14:30 112 H 20 106/70 99 07/04/23 14:00 112 H 20 107/76 99 07/04/23 13:00 108 H 22 118/81 98 07/04/23 12:30 104 H 24 125/109 100 07/04/23 12:00 106 H 24 97/76 99 07/04/23 11:30 101 H 20 58/44 100 Intake and Output 07/04/23 07/05/23 07/05/23 22:59 06:59 14:59 Intake Total 400 Output Total 134 Balance 266 Intake: Hemodialysis 400 Output: Hemodialysis 134 Results - Lab Results Most recent lab results Calcium 8.6 mg/dL (8.4-10.2) 07/04/23 10:19 Magnesium 1.9 mg/dL (1.6-2.3) 07/04/23 10:19 07/04/23 10:19 07/04/23 10:19 Assessment and Plan Assessment: 1. Hemodialysis dependent acute kidney injury from last admission. Serum creatinine had peaked at about 6.5 mg/dL with significant volume overload. Patient was started on hemodialysis on 06/22/2023. He is maintained on a Saturday schedule. Patient refused hemodialysis yesterday. 2. Chronic kidney disease stage IIIa secondary to diabetic kidney disease and cardiorenal syndrome with lowest creatinine at 1.4 on 06/03/2023 but mostly staying around 1.7-2.3 prior to dialysis. 3. Right lower extremity wound being followed by vascular surgery. Patient had refused amputation. Currently maintained on IV antibiotics 4. Cardiomyopathy with EF of less than 20% with moderate to severe mitral regurgitation, moderate tricuspid regurgitation and severe pulmonary hyp ertension 5. Volume overload 6. COVID-19 infection chest x-ray showing suggestion of pulmonary vascular congestion. Currently maintained on room air Plan: Hemodialysis in a.m. We will try to administer Benadryl prior to treatment. Continue with IV Lasix increased to every 8 hours Continue midodrine Continue with IV antibiotics. Next Thank you for the consultation. We will continue to follow the patient with you during his hospitalization.
[2023-07-05 11:48] LABS: BUN/Creat Ratio 21.73 Ratio (12.00-20.00); Blood Urea Nitrogen 47.8 mg/dL (9.0-27.0); Calcium 9.2 mg/dL (8.7-10.3); Carbon Dioxide 21.5 mmol/L (21.6-31.8); Chloride 94 mmol/L (96-109); Glucose 317 mg/dL (70-110); Potassium 4.7 mmol/L (3.5-5.5); Sodium 132 mmol/L (135-145)
[2023-07-05 15:59] LABS: Glucose,Whole Blood 421 mg/dL (70-110)
[2023-07-05] MEDS ORDERED: DEXTROSE 50% SYRINGE 50 ML IVP PRN ×2 (20:05)
[2023-07-05 20:07] LABS: Glucose,Whole Blood 470 mg/dL (70-110)
[2023-07-05] MEDS: FUROSEMIDE 10 MG/ML 10 ML VIAL IV SCH (20:09)
[2023-07-05] MEDS: INSULIN ASPART (NovoLOG) 100 UNIT/ML VIAL SQ SCH (20:24)
--- NOTE | 2023-07-05 20:42 | P.PN ---
Subjective Progress Note Date: 07/05/23 This is a 53-year-old male who was brought to the emergency department via EMS with increasing shortness of breath while at dialysis and unable to tolerate cycle and was found to have significant volume overload as well as being positive for COVID-19. Patient was recently discharged on the fifth of this month to [facility] for continued antibiotic therapy along with dialysis and significant weakness. Patient had renal failure secondary to cardiorenal syndrome and was started on dialysis on last admission. Patient is continued on Saturday//Saturday and wasn't able to tolerate the session of dialysis today. Patient sent to the hospital for further evaluation. Patient follows with Dr. Rodríguez in the outpatient setting with a past medical history of asthma, coronary artery disease, chronic systolic heart failure, COPD, diabetes mellitus, GERD, hyperlipidemia, hypertension, previous myocardial infarctions, sleep apnea with use of CPAP, SVT, ischemic cardiomyopathy and chronic nonhealing diabetic foot wounds that was suggestive of osteomyelitis. Patient was discharged on antibiotics and to be continued during dialysis per ID recommendations for chronic lower extremity wounds with suggestions of osteomyelitis. Patient is extremely noncompliant with medications and overall care including uncontrolled diabetes and continued nicotine dependence. Patient was admitted with shortness of breath with hypoxia secondary to volume overload and was also found to be COVID-19 positive. Infectious disease was consulted along with nephrology. BNP was 15,000 on admission. 07/05/2023 Patient is seen in follow-up today with nephrology and infectious disease following maintained IV antibiotics for lower extremity cellulitis as patient has been ongoing receiving antibiotics with dialysis per infectious disease from previous admission. Patient also with coated 19 infection and significant volume overload scheduled to receive dialysis tomorrow. Patient does have right chest wall port From previous admission and continued on hemodialysis. Patient was from [facility] and will likely need to return there for continued PT/OT therapy. Patient is currently afebrile and has weaned off oxygen currently on room air reports improvement in shortness of breath. Patient is diabetic and will add insulin sliding scale along with Accu-Cheks before meals and at bedtime as patient blood sugars are elevated will also add long-acting and monitor closely. Recommend PT/OT therapy evaluation. Review of systems: Constitutional: No reports of fatigue, fever, or chills, reports increased anxiety Cardiovascular: No reports of chest pain or palpitations Respiratory: No reports of shortness of breath or cough GI: No reports of nausea, vomiting, or diarrhea : No reports of dysuria or retention Neurovascular: reports of generalized weakness and some continued lower extremity swelling with redness although feels is slightly improved All medications have been reviewed PHYSICAL EXAMINATION: GENERAL: The patient is alert and oriented x2-3 baseline, Well developed, unkempt, elderly appearing, obese HEENT: Pupils are round and equally reacting to light. EOMI. no scleral icterus. No conjunctival pallor. Normocephalic, atraumatic. No pharyngeal erythema. No thyromegaly. CARDIOVASCULAR: S1 and S2 muffled PULMONARY: diminished breath sounds bilaterally with no wheezing, some faint crackles and coarse rhonchi noted at the bases. ABDOMEN: soft. Nontender on exam. obese. non-distended, normoactive bowel sounds. No palpable organomegaly. MUSCULOSKELETAL: No joint swelling or deformity. EXTREMITIES: No cyanosis, clubbing, or pedal edema. Bilateral lower extremity swelling with some improvement in erythema and wounds noted on the right lower extremity, currently dressed with Kerlix dressing NEUROLOGICAL: Gross neurological examination did not reveal any focal deficits. Diffuse weakness SKIN: No rashes. Assessment: -Shortness of breath with acute hypoxic respiratory failure, likely secondary to volume overload with cardiorenal syndrome -Acute COVID-19 infection -Congestive heart failure with chronic systolic dysfunction, EF of 20% with nonischemic cardiomyopathy -Acute on chronic right lower leg cellulitis with MRSA, was maintained on antibiotics during dialysis on recent admission -Continued Infected right heel decubitus ulcer with evidence of osteomyelitis -Chronic obstructive pulmonary disease, not in exacerbation -Diabetes mellitus, type II uncontrolled with hyperglycemia -Acute renal failure with ATN from cardiorenal syndrome, worsening renal function patient has been started on hemodialysis and most recent admission maintained on Saturday//Saturday -Lower extremity chronic venous insufficiency -Hyperlipidemia -Chronic kidney disease stage III from diabetic nephropathy and nephrosclerosis -moderate to severe MR/moderate TR and severe pulmonary hypertension -Chronic low back pain. -Hypotension maintained on midodrine -Obstructive sleep apnea sometimes uses CPAP machine -Diabetic peripheral neuropathy -Anxiety -DJD -AICD -Obesity with a BMI of 31.4 -GI prophylaxis -DVT prophylaxis -Full Code Plan: Recommend to continue with current medications and management and nephrology along with infectious disease following. Patient continued on hemodialysis Saturday//Saturday was Patient tested positive for COVID-19 on ED admission and was maintained on 2 L of oxygen via nasal cannula and has weaned as tolerated currently on room air. Patient had significant volume overload with BNP of over 15,000 on admission showing some minimal improvements on lower extremity swelling Antibiotics in the form of cefepime, Flagyl, vancomycin with infectious disease following for continued right lower extremity cellulitis with osteomyelitis Continue local wound care per infectious disease recommendations and have instructed the patient to elevate lower extremity swelling rest. Erythema noted to lower extremities appear to be slightly improved from a few days previously Home medications reviewed and resumed as appropriate. Patient having increased anxiety and will add low-dose Xanax as needed. Continue monitoring Accu-Cheks before meals and at bedtblood sugars remain extremely elevated will add long-acting as well. Awaiting PT/OT for evaluation Case management consulted as patient will likely need to return to ECF and/or have outpatient dialysis arranged and significant needs for discharge planning Patient is extremely noncompliant with medications and follow-up and he cont inues to be high risk for readmissions given patient's significant comorbidities Due to multiple complex medical issues, prognosis is guarded The impression and plan of care has been dictated by Loraine Shearer, nurse practitioner as directed. Dr. Katie MD I have performed a history and examination and MDM of this patient, discussed the same with the dictator, and agree with the dictator's assessment and plan as written ,documented as a scribe. Based on total visit time, I have performed more than 50% of the visit. Any additional findings or plans will be noted. Objective - Vital Signs Vital signs: Vital Signs Temp 97.1 F L 07/05/23 09:47 Pulse 101 H 07/05/23 09:47 Resp 22 07/05/23 09:47 BP 113/74 07/05/23 09:47 Pulse Ox 97 07/05/23 09:47 FiO2 Intake & Output 07/04/23 07/05/23 07/05/23 18:59 06:59 18:59 Intake Total 400 Output Total 134 Balance 266 Weight 102.058 kg Intake: Hemodialysis 400 Output: Hemodialysis 134 - Labs CBC & Chem 7: 07/05/23 06:45 07/05/23 06:45 Labs: Abnormal Lab Results - Last 24 Hours (Table) 07/05/23 07/05/23 Range/Units 06:45 06:45 WBC 10.07 H (4.50-10.00) X 10*3/uL RBC 4.27 L (4.40-5.60) X 10*6/uL Hgb 11.6 L (13.0-17.0) g/dL Hct 37.2 L (39.6-50.0) % MCHC 31.2 L (32.0-37.0) g/dL RDW 18.1 H (11.5-14.5) % Immature Gran # 0.05 H (0.00-0.04) X 10*3/uL Neutrophils # 8.81 H (1.80-7.70) X 10*3/uL Lymphocytes # 0.77 L (0.90-5.00) X 10*3/uL Eosinophils # 0 L (0.04-0.35) X 10*3/uL Sodium 132 L (135-145) mmol/L Chloride 94 L (96-109) mmol/L Carbon Dioxide 21.5 L (21.6-31.8) mmol/L Anion Gap 16.50 H (4.00-12.00) mmol/L BUN 47.8 H (9.0-27.0) mg/dL Creatinine 2.2 H (0.6-1.5) mg/dL Est GFR (CKD-EPI) 35 L (>=60) BUN/Creatinine Ratio 21.73 H (12.00-20.00) Ratio Glucose 317 H (70-110) mg/dL
[2023-07-05 21:12] LABS: Glucose,Whole Blood 451 mg/dL (70-110)
[2023-07-05] MEDS: INSULIN DETEMIR (LEVEMIR) 100 UNIT/ML SYR SQ SCH (21:23)
[2023-07-05 22:55] LABS: Glucose,Whole Blood 415 mg/dL (70-110)
[2023-07-05] MEDS: ALPRAZolam 0.25 MG TAB PO SCH (23:36)
[2023-07-05] MEDS: INSULIN ASPART (NovoLOG) 100 UNIT/ML VIAL SQ ONE (23:40)
[2023-07-05] MEDS: ACETAMINOPHEN TAB 325 MG TAB PO PRN (23:42)
[2023-07-06 00:38] LABS: Glucose,Whole Blood 300 mg/dL (70-110)
[2023-07-06] MEDS: INSULIN ASPART (NovoLOG) 100 UNIT/ML VIAL SQ SCH (01:04)
[2023-07-06 01:29] LABS: Glucose,Whole Blood 282 mg/dL (70-110)
[2023-07-06 02:58] LABS: Glucose,Whole Blood 217 mg/dL (70-110)
[2023-07-06 06:27] LABS: Glucose,Whole Blood 177 mg/dL (70-110)
[2023-07-06] MEDS ORDERED: MIDODRINE 5 MG TAB PO PRN (08:38)
--- NOTE | 2023-07-06 09:38 | P.PN ---
Subjective Patient is seen in follow-up for acute kidney injury on chronic kidney disease. He currently hemodialysis dependent. Tolerating dialysis well currently. Denies chest pain or shortness of breath. Vital signs are stable. Blood pressure on the lower side. General: No acute distress. HEENT: Head exam is unremarkable. LUNGS: Scattered rhonchi. HEART: Rate and Rhythm are regular. ABDOMEN: Nontender. EXTREMITITES: 2+ edema. Objective - Vital Signs Vital signs: Vital Signs Temp 98 F 07/06/23 07:20 Pulse 63 07/06/23 07:20 Resp 17 07/06/23 07:20 BP 88/69 07/06/23 07:20 Pulse Ox 97 07/06/23 09:16 FiO2 Intake & Output 07/05/23 07/06/23 07/06/23 18:59 06:59 18:59 Other: Voiding Method Toilet # Voids 2 # Bowel Movements 1 - Labs CBC & Chem 7: 07/05/23 06:45 07/05/23 06:45 Labs: Abnormal Lab Results - Last 24 Hours (Table) 07/05/23 07/05/23 07/05/23 Range/Units 06:45 06:45 15:56 WBC 10.07 H (4.50-10.00) X 10*3/uL RBC 4.27 L (4.40-5.60) X 10*6/uL Hgb 11.6 L (13.0-17.0) g/dL Hct 37.2 L (39.6-50.0) % MCHC 31.2 L (32.0-37.0) g/dL RDW 18.1 H (11.5-14.5) % Immature Gran # 0.05 H (0.00-0.04) X 10*3/uL Neutrophils # 8.81 H (1.80-7.70) X 10*3/uL Lymphocytes # 0.77 L (0.90-5.00) X 10*3/uL Eosinophils # 0 L (0.04-0.35) X 10*3/uL Sodium 132 L (135-145) mmol/L Chloride 94 L (96-109) mmol/L Carbon Dioxide 21.5 L (21.6-31.8) mmol/L Anion Gap 16.50 H (4.00-12.00) mmol/L BUN 47.8 H (9.0-27.0) mg/dL Creatinine 2.2 H (0.6-1.5) mg/dL Est GFR (CKD-EPI) 35 L (>=60) BUN/Creatinine Ratio 21.73 H (12.00-20.00) Ratio Glucose 317 H (70-110) mg/dL POC Glucose (mg/dL) 421 H (70-110) mg/dL 07/05/23 07/05/23 07/05/23 Range/Units 20:06 21:10 22:52 WBC (4.50-10.00) X 10*3/uL RBC (4.40-5.60) X 10*6/uL Hgb (13.0-17.0) g/dL Hct (39.6-50.0) % MCHC (32.0-37.0) g/dL RDW (11.5-14.5) % Immature Gran # (0.00-0.04) X 10*3/uL Neutrophils # (1.80-7.70) X 10*3/uL Lymphocytes # (0.90-5.00) X 10*3/uL Eosinophils # (0.04-0.35) X 10*3/uL Sodium (135-145) mmol/L Chloride (96-109) mmol/L Carbon Dioxide (21.6-31.8) mmol/L Anion Gap (4.00-12.00) mmol/L BUN (9.0-27.0) mg/dL Creatinine (0.6-1.5) mg/dL Est GFR (CKD-EPI) (>=60) BUN/Creatinine Ratio (12.00-20.00) Ratio Glucose (70-110) mg/dL POC Glucose (mg/dL) 470 H 451 H 415 H (70-110) mg/dL 07/06/23 07/06/23 07/06/23 Range/Units 00:36 01:28 02:56 WBC (4.50-10.00) X 10*3/uL RBC (4.40-5.60) X 10*6/uL Hgb (13.0-17.0) g/dL Hct (39.6-50.0) % MCHC (32.0-37.0) g/dL RDW (11.5-14.5) % Immature Gran # (0.00-0.04) X 10*3/uL Neutrophils # (1.80-7.70) X 10*3/uL Lymphocytes # (0.90-5.00) X 10*3/uL Eosinophils # (0.04-0.35) X 10*3/uL Sodium (135-145) mmol/L Chloride (96-109) mmol/L Carbon Dioxide (21.6-31.8) mmol/L Anion Gap (4.00-12.00) mmol/L BUN (9.0-27.0) mg/dL Creatinine (0.6-1.5) mg/dL Est GFR (CKD-EPI) (>=60) BUN/Creatinine Ratio (12.00-20.00) Ratio Glucose (70-110) mg/dL POC Glucose (mg/dL) 300 H 282 H 217 H (70-110) mg/dL 07/06/23 Range/Units 06:26 WBC (4.50-10.00) X 10*3/uL RBC (4.40-5.60) X 10*6/uL Hgb (13.0-17.0) g/dL Hct (39.6-50.0) % MCHC (32.0-37.0) g/dL RDW (11.5-14.5) % Immature Gran # (0.00-0.04) X 10*3/uL Neutrophils # (1.80-7.70) X 10*3/uL Lymphocytes # (0.90-5.00) X 10*3/uL Eosinophils # (0.04-0.35) X 10*3/uL Sodium (135-145) mmol/L Chloride (96-109) mmol/L Carbon Dioxide (21.6-31.8) mmol/L Anion Gap (4.00-12.00) mmol/L BUN (9.0-27.0) mg/dL Creatinine (0.6-1.5) mg/dL Est GFR (CKD-EPI) (>=60) BUN/Creatinine Ratio (12.00-20.00) Ratio Glucose (70-110) mg/dL POC Glucose (mg/dL) 177 H (70-110) mg/dL Assessment and Plan Plan: Assessment: 1. Acute kidney injury secondary to ATN secondary to cardiorenal syndrome. Hemodialysis dependent. Started on hemodialysis 06/22/2023. Has permacath. Maintained on Saturday schedule outpatient. 2. Chronic kidney disease stage IIIa secondary to diabetic kidney disease and cardiorenal syndrome with creatinine as low as 1.4 on 06/03/2023 and near 1.7- 2.3 prior to starting dialysis. 3. Lower extremity wounds being followed by vascular surgery. Refused habitation in the past. On IV antibiotics. 4. Volume overload. 5. Acute on chronic systolic CHF with ejection fraction of less than 20% and moderate to severe mitral regurgitation, moderate tricuspid regurgitation and severe pulmonary hypertension. 6. Acute COVID-19 infection. 7. Hypervolemic hyponatremia. 8. Diabetes mellitus. Plan: Currently seen while undergoing hemodialysis. Maintain midodrine. Hold for systolic blood pressure greater than 110. May get additional 10 mg of midodrine during dialysis if needed for hypotension. Monitor for renal recovery outpatient. Check phosphorus level.
[2023-07-06] MEDS ORDERED: TORSEMIDE 20 MG TAB PO SCH (10:00)
[2023-07-06 10:39] LABS: BUN/Creat Ratio 26.67 Ratio (12.00-20.00); Glucose 142 mg/dL (70-110)
[2023-07-06 10:40] LABS: Calcium 9.2 mg/dL (8.7-10.3); Carbon Dioxide 23.6 mmol/L (21.6-31.8); Chloride 92 mmol/L (96-109); Potassium 5.1 mmol/L (3.5-5.5); Sodium 130 mmol/L (135-145)
[2023-07-06 10:59] LABS: Basophils # (A) 0.03 X 10*3/uL (0.00-0.10); Basophils % (A) 0.2 %; Eosinophils # (A) 0 X 10*3/uL (0.04-0.35); Eosinophils % (A) 0 %; HCT 39.1 % (39.6-50.0); Hypochromasia (M) 2+; Lymphocytes # (A) 1.77 X 10*3/uL (0.90-5.00); Lymphocytes % (A) 9.2 %; MCH 27.6 pg (27.0-32.0); MCHC 30.7 g/dL (32.0-37.0); MCV 90.1 FL (80.0-97.0); Mean Platelet Volume 12.6 FL (9.5-12.2); Monocytes # (A) 1.43 X 10*3/uL (0.20-1.00); Monocytes % (A) 7.5 %; NRBC Per 100 WBC 0 X 10*3/uL (0.00-0.01); Neutrophils % (A) 82.4 %; Platelet Count 241 X 10*3/uL (140-440); RBC 4.34 X 10*6/uL (4.40-5.60); WBC 19.16 X 10*3/uL (4.50-10.00)
[2023-07-06 11:35] LABS: Glucose,Whole Blood 182 mg/dL (70-110)
[2023-07-06 16:51] LABS: Glucose,Whole Blood 228 mg/dL (70-110)
[2023-07-06 20:50] LABS: Glucose,Whole Blood 195 mg/dL (70-110)
--- NOTE | 2023-07-06 23:22 | P.PN ---
Subjective Progress Note Date: 07/06/23 This is a 53-year-old male who was brought to the emergency department via EMS with increasing shortness of breath while at dialysis and unable to tolerate cycle and was found to have significant volume overload as well as being positive for COVID-19. Patient was recently discharged on the fifth of this month to [facility] for continued antibiotic therapy along with dialysis and significant weakness. Patient had renal failure secondary to cardiorenal syndrome and was started on dialysis on last admission. Patient is continued on Saturday//Saturday and wasn't able to tolerate the session of dialysis today. Patient sent to the hospital for further evaluation. Patient follows with Dr. Rodríguez in the outpatient setting with a past medical history of asthma, coronary artery disease, chronic systolic heart failure, COPD, diabetes mellitus, GERD, hyperlipidemia, hypertension, previous myocardial infarctions, sleep apnea with use of CPAP, SVT, ischemic cardiomyopathy and chronic nonhealing diabetic foot wounds that was suggestive of osteomyelitis. Patient was discharged on antibiotics and to be continued during dialysis per ID recommendations for chronic lower extremity wounds with suggestions of osteomyelitis. Patient is extremely noncompliant with medications and overall care including uncontrolled diabetes and continued nicotine dependence. Patient was admitted with shortness of breath with hypoxia secondary to volume overload and was also found to be COVID-19 positive. Infectious disease was consulted along with nephrology. BNP was 15,000 on admission. 07/05/2023 Patient is seen in follow-up today with nephrology and infectious disease following maintained IV antibiotics for lower extremity cellulitis as patient has been ongoing receiving antibiotics with dialysis per infectious disease from previous admission. Patient also with coated 19 infection and significant volume overload scheduled to receive dialysis tomorrow. Patient does have right chest wall port From previous admission and continued on hemodialysis. Patient was from [facility] and will likely need to return there for continued PT/OT therapy. Patient is currently afebrile and has weaned off oxygen currently on room air reports improvement in shortness of breath. Patient is diabetic and will add insulin sliding scale along with Accu-Cheks before meals and at bedtime as patient blood sugars are elevated will also add long-acting and monitor closely. Recommend PT/OT therapy evaluation. 07/06/2023 Patient is sitting on the side of the bed. Awake alert but slightly confused. Patient states that his breathing is better. No complaints of chest pain or tightness. Patient is undergoing hemodialysis today. Continued on midodrine and additional 10 mg during dialysis days. Otherwise bilateral lower extremity wounds wrapped and is being continued on antibiotic cefepime as per ID recommendations. Blood sugar is fairly controlled. Patient is afebrile. Laboratory data showed WBC 19.1 hemoglobin 12.0 and platelets 241, sodium 130 potassium 5.1 BUN 64 and creatinine 2.4 and blood sugar 142 A1c level is 7.5 Current medications reviewed. Review of systems: Constitutional: No reports of fatigue, fever, or chills, reports increased anxiety Cardiovascular: No reports of chest pain or palpitations Respiratory: No reports of shortness of breath or cough GI: No reports of nausea, vomiting, or diarrhea : No reports of dysuria or retention Neurovascular: reports of generalized weakness and some continued lower extremity swelling with redness although feels is slightly improved All medications have been reviewed PHYSICAL EXAMINATION: GENERAL: The patient is alert and oriented x2-3 baseline, Well developed, unkempt, elderly appearing, obese HEENT: Pupils are round and equally reacting to light. EOMI. no scleral icterus. No conjunctival pallor. Normocephalic, atraumatic. No pharyngeal erythema. No thyromegaly. CARDIOVASCULAR: S1 and S2 muffled PULMONARY: diminished breath sounds bilaterally with no wheezing, some faint crackles and coarse rhonchi noted at the bases. ABDOMEN: soft. Nontender on exam. obese. non-distended, normoactive bowel sounds. No palpable organomegaly. MUSCULOSKELETAL: No joint swelling or deformity. EXTREMITIES: No cyanosis, clubbing, or pedal edema. Bilateral lower extremity swelling with some improvement in erythema and wounds noted on the right lower extremity, currently dressed with Kerlix dressing NEUROLOGICAL: Gross neurological examination did not reveal any focal deficits. Diffuse weakness SKIN: No rashes. Assessment: -Shortness of breath with acute hypoxic respiratory failure, likely secondary to volume overload with cardiorenal syndrome -Acute COVID-19 infection -Congestive heart failure with chronic systolic dysfunction, EF of 20% with nonischemic cardiomyopathy -Acute on chronic right lower leg cellulitis with MRSA, was maintained on antibiotics during dialysis on recent admission -Continued Infected right heel decubitus ulcer with evidence of osteomyelitis -Chronic obstructive pulmonary disease, not in exacerbation -Diabetes mellitus, type II uncontrolled with hyperglycemia -Acute renal failure with ATN from cardiorenal syndrome, worsening renal function patient has been started on hemodialysis and most recent admission maintained on Saturday//Saturday -Lower extremity chronic venous insufficiency -Hyperlipidemia -Chronic kidney disease stage III from diabetic nephropathy and nephrosclerosis -moderate to severe MR/moderate TR and severe pulmonary hypertension -Chronic low back pain. -Hypotension maintained on midodrine -Obstructive sleep apnea sometimes uses CPAP machine -Diabetic peripheral neuropathy -Anxiety -DJD -AICD -Obesity with a BMI of 31.4 -GI prophylaxis -DVT prophylaxis -Full Code Plan: Recommend to continue with current medications and management and nephrology along with infectious disease following. Patient continued on hemodialysis Saturday//Saturday was Patient tested positive for COVID-19 on ED admission and was maintained on 2 L of oxygen via nasal cannula and has weaned as tolerated currently on room air. Patient had significant volume overload with BNP of over 15,000 on admission showing some minimal improvements on lower extremity swelling Antibiotics in the form of cefepime, Flagyl, vancomycin with infectious disease following for continued right lower extremity cellulitis with osteomyelitis Continue local wound care per infectious disease recommendations and have instructed the patient to elevate lower extremity swelling rest. Erythema noted to lower extremities appear to be slightly improved from a few days previously Home medications reviewed and resumed as appropriate. Patient having increased anxiety and will add low-dose Xanax as needed. Continue monitoring Accu-Cheks before meals and at bedtblood sugars remain extremely elevated will add long-acting as well. Awaiting PT/OT for evaluation Case management consulted as patient will likely need to return to ECF and/or have outpatient dialysis arranged and significant needs for discharge planning Patient is extremely noncompliant with medications and follow-up and he continues to be high risk for readmissions given patient's significant comorbidities Due to multiple complex medical issues, prognosis is guarded Objective - Vital Signs Vital signs: Vital Signs Temp 97.8 F 07/06/23 12:25 Pulse 95 07/06/23 12:25 Resp 19 07/06/23 12:25 BP 98/67 07/06/23 12:25 Pulse Ox 91 L 07/06/23 12:25 FiO2 Intake & Output 07/05/23 07/06/23 07/06/23 18:59 06:59 18:59 Intake Total 500 Output Total 1500 Balance -1000 Intake: Hemodialysis 500 Output: Hemodialysis 1500 Other: Voiding Method Toilet Toilet # Voids 2 # Bowel Movements 1 - Labs CBC & Chem 7: 07/06/23 06:59 07/06/23 06:59 Labs: Abnormal Lab Results - Last 24 Hours (Table) 07/05/23 07/05/23 07/05/23 Range/Units 15:56 20:06 21:10 WBC (4.50-10.00) X 10*3/uL RBC (4.40-5.60) X 10*6/uL Hgb (13.0-17.0) g/dL Hct (39.6-50.0) % MCHC (32.0-37.0) g/dL RDW (11.5-14.5) % MPV (9.5-12.2) FL Immature Gran # (0.00-0.04) X 10*3/uL Neutrophils # (1.80-7.70) X 10*3/uL Monocytes # (0.20-1.00) X 10*3/uL Eosinophils # (0.04-0.35) X 10*3/uL Hypochromasia (manual) Sodium (135-145) mmol/L Chloride (96-109) mmol/L Anion Gap (4.00-12.00) mmol/L BUN (9.0-27.0) mg/dL Creatinine (0.6-1.5) mg/dL Est GFR (CKD-EPI) (>=60) BUN/Creatinine Ratio (12.00-20.00) Ratio Glucose (70-110) mg/dL POC Glucose (mg/dL) 421 H 470 H 451 H (70-110) mg/dL 07/05/23 07/06/23 07/06/23 Range/Units 22:52 00:36 01:28 WBC (4.50-10.00) X 10*3/uL RBC (4.40-5.60) X 10*6/uL Hgb (13.0-17.0) g/dL Hct (39.6-50.0) % MCHC (32.0-37.0) g/dL RDW (11.5-14.5) % MPV (9.5-12.2) FL Immature Gran # (0.00-0.04) X 10*3/uL Neutrophils # (1.80-7.70) X 10*3/uL Monocytes # (0.20-1.00) X 10*3/uL Eosinophils # (0.04-0.35) X 10*3/uL Hypochromasia (manual) Sodium (135-145) mmol/L Chloride (96-109) mmol/L Anion Gap (4.00-12.00) mmol/L BUN (9.0-27.0) mg/dL Creatinine (0.6-1.5) mg/dL Est GFR (CKD-EPI) (>=60) BUN/Creatinine Ratio (12.00-20.00) Ratio Glucose (70-110) mg/dL POC Glucose (mg/dL) 415 H 300 H 282 H (70-110) mg/dL 07/06/23 07/06/23 07/06/23 Range/Units 02:56 06:26 06:59 WBC 19.16 H (4.50-10.00) X 10*3/uL RBC 4.34 L (4.40-5.60) X 10*6/uL Hgb 12.0 L (13.0-17.0) g/dL Hct 39.1 L (39.6-50.0) % MCHC 30.7 L (32.0-37.0) g/dL RDW 18.0 H (11.5-14.5) % MPV 12.6 H (9.5-12.2) FL Immature Gran # 0.13 H (0.00-0.04) X 10*3/uL Neutrophils # 15.80 H (1.80-7.70) X 10*3/uL Monocytes # 1.43 H (0.20-1.00) X 10*3/uL Eosinophils # 0 L (0.04-0.35) X 10*3/uL Hypochromasia (manual) 2+ A Sodium (135-145) mmol/L Chloride (96-109) mmol/L Anion Gap (4.00-12.00) mmol/L BUN (9.0-27.0) mg/dL Creatinine (0.6-1.5) mg/dL Est GFR (CKD-EPI) (>=60) BUN/Creatinine Ratio (12.00-20.00) Ratio Glucose (70-110) mg/dL POC Glucose (mg/dL) 217 H 177 H (70-110) mg/dL 07/06/23 07/06/23 Range/Units 06:59 11:33 WBC (4.50-10.00) X 10*3/uL RBC (4.40-5.60) X 10*6/uL Hgb (13.0-17.0) g/dL Hct (39.6-50.0) % MCHC (32.0-37.0) g/dL RDW (11.5-14.5) % MPV (9.5-12.2) FL Immature Gran # (0.00-0.04) X 10*3/uL Neutrophils # (1.80-7.70) X 10*3/uL Monocytes # (0.20-1.00) X 10*3/uL Eosinophils # (0.04-0.35) X 10*3/uL Hypochromasia (manual) Sodium 130 L (135-145) mmol/L Chloride 92 L (96-109) mmol/L Anion Gap 14.40 H (4.00-12.00) mmol/L BUN 64.0 H (9.0-27.0) mg/dL Creatinine 2.4 H (0.6-1.5) mg/dL Est GFR (CKD-EPI) 31 L (>=60) BUN/Creatinine Ratio 26.67 H (12.00-20.00) Ratio Glucose 142 H (70-110) mg/dL POC Glucose (mg/dL) 182 H (70-110) mg/dL Assessment and Plan Time with Patient: Greater than 30
[2023-07-07] MEDS: ONDANSETRON 4 MG/2 ML VIAL IVP PRN (06:00)
[2023-07-07 06:14] LABS: Glucose,Whole Blood 72 mg/dL (70-110)
[2023-07-07 11:28] LABS: Glucose,Whole Blood 147 mg/dL (70-110)
--- NOTE | 2023-07-07 11:54 | P.PN ---
Subjective Patient is seen in follow-up for acute kidney injury on chronic kidney disease. He currently hemodialysis dependent. Tolerated 1.5 L ultrafiltration yesterday. Denies chest pain or shortness of breath. Vital signs are stable. Blood pressure on the lower side. General: No acute distress. HEENT: Head exam is unremarkable. LUNGS: Scattered rhonchi. HEART: Rate and Rhythm are regular. ABDOMEN: Nontender. EXTREMITITES: 2+ edema. Objective - Vital Signs Vital signs: Vital Signs Temp 97.4 F L 07/07/23 07:37 Pulse 110 H 07/07/23 07:37 Resp 21 07/07/23 07:37 BP 125/84 07/07/23 10:42 Pulse Ox 98 07/07/23 07:37 FiO2 Intake & Output 07/06/23 07/07/23 07/07/23 18:59 06:59 18:59 Intake Total 500 Output Total 1500 175 Balance -1000 -175 Intake: Hemodialysis 500 Output: Urine 175 Hemodialysis 1500 Other: Voiding Method Toilet Toilet # Voids 1 2 1 # Bowel Movements 1 - Labs CBC & Chem 7: 07/06/23 06:59 07/06/23 06:59 Labs: Abnormal Lab Results - Last 24 Hours (Table) 07/06/23 07/06/23 07/06/23 Range/Units 06:59 16:50 20:49 POC Glucose (mg/dL) 228 H 195 H (70-110) mg/dL Hemoglobin A1c 7.5 H (<=6.0) % 07/07/23 Range/Units 11:26 POC Glucose (mg/dL) 147 H (70-110) mg/dL Hemoglobin A1c (<=6.0) % Assessment and Plan Plan: Assessment: 1. Acute kidney injury secondary to ATN secondary to cardiorenal syndrome. Hemodialysis dependent. Started on hemodialysis 06/22/2023. Has permacath. Maintained on Saturday schedule outpatient. 2. Chronic kidney disease stage IIIa secondary to diabetic kidney disease and cardiorenal syndrome with creatinine as low as 1.4 on 06/03/2023 and near 1.7- 2.3 prior to starting dialysis. 3. Lower extremity wounds being followed by vascular surgery. Refused habita tion in the past. On IV antibiotics. 4. Volume overload. Improving with ultrafiltration. 5. Acute on chronic systolic CHF with ejection fraction of less than 20% and moderate to severe mitral regurgitation, moderate tricuspid regurgitation and severe pulmonary hypertension. 6. Acute COVID-19 infection. 7. Hypervolemic hyponatremia. 8. Diabetes mellitus. Plan: Hemodialysis tomorrow and again on Saturday. Maintain midodrine. Hold for systolic blood pressure greater than 110. May get additional 10 mg of midodrine during dialysis if needed for hypotension. Monitor for renal recovery outpatient. Phosphorus level 3.7 dated 07/16/2023.
[2023-07-07 16:30] LABS: Glucose,Whole Blood 137 mg/dL (70-110)
[2023-07-07 21:10] LABS: Glucose,Whole Blood 156 mg/dL (70-110)
--- NOTE | 2023-07-07 22:15 | P.PN ---
Subjective Progress Note Date: 07/07/23 This is a 53-year-old male who was brought to the emergency department via EMS with increasing shortness of breath while at dialysis and unable to tolerate cycle and was found to have significant volume overload as well as being positive for COVID-19. Patient was recently discharged on the fifth of this month to [facility] for continued antibiotic therapy along with dialysis and significant weakness. Patient had renal failure secondary to cardiorenal syndrome and was started on dialysis on last admission. Patient is continued on Saturday//Saturday and wasn't able to tolerate the session of dialysis today. Patient sent to the hospital for further evaluation. Patient follows with Dr. Rodríguez in the outpatient setting with a past medical history of asthma, coronary artery disease, chronic systolic heart failure, COPD, diabetes mellitus, GERD, hyperlipidemia, hypertension, previous myocardial infarctions, sleep apnea with use of CPAP, SVT, ischemic cardiomyopathy and chronic nonhealing diabetic foot wounds that was suggestive of osteomyelitis. Patient was discharged on antibiotics and to be continued during dialysis per ID recommendations for chronic lower extremity wounds with suggestions of osteomyelitis. Patient is extremely noncompliant with medications and overall care including uncontrolled diabetes and continued nicotine dependence. Patient was admitted with shortness of breath with hypoxia secondary to volume overload and was also found to be COVID-19 positive. Infectious disease was consulted along with nephrology. BNP was 15,000 on admission. 07/05/2023 Patient is seen in follow-up today with nephrology and infectious disease following maintained IV antibiotics for lower extremity cellulitis as patient has been ongoing receiving antibiotics with dialysis per infectious disease from previous admission. Patient also with coated 19 infection and significant volume overload scheduled to receive dialysis tomorrow. Patient does have right chest wall port From previous admission and continued on hemodialysis. Patient was from [facility] and will likely need to return there for continued PT/OT therapy. Patient is currently afebrile and has weaned off oxygen currently on room air reports improvement in shortness of breath. Patient is diabetic and will add insulin sliding scale along with Accu-Cheks before meals and at bedtime as patient blood sugars are elevated will also add long-acting and monitor closely. Recommend PT/OT therapy evaluation. 07/06/2023 Patient is sitting on the side of the bed. Awake alert but slightly confused. Patient states that his breathing is better. No complaints of chest pain or tightness. Patient is undergoing hemodialysis today. Continued on midodrine and additional 10 mg during dialysis days. Otherwise bilateral lower extremity wounds wrapped and is being continued on antibiotic cefepime as per ID recommendations. Blood sugar is fairly controlled. Patient is afebrile. Laboratory data showed WBC 19.1 hemoglobin 12.0 and platelets 241, sodium 130 potassium 5.1 BUN 64 and creatinine 2.4 and blood sugar 142 A1c level is 7.5 07/07/2023 Patient is sitting on side of the bed. Awake alert and oriented. Patient underwent hemodialysis yesterday. Continued on Lasix IV 80 mg every 8 hourly. No complaints of chest pain. Does have exertional dyspnea. Also on antibiotics for bilateral lower extremity wounds. Daptomycin and cefepime. ID is on board. Nephrology is on board as well. Laboratory data reviewed. No nausea vomiting abdominal pain or diarrhea. Tolerating oral diet. Current medications reviewed. Review of systems: Constitutional: No reports of fatigue, fever, or chills, reports increased anxiety Cardiovascular: No reports of chest pain or palpitations Respiratory: No reports of shortness of breath or cough GI: No reports of nausea, vomiting, or diarrhea : No reports of dysuria or retention Neurovascular: reports of generalized weakness and some continued lower extremity swelling with redness although feels is slightly improved All medications have been reviewed PHYSICAL EXAMINATION: GENERAL: The patient is alert and oriented x2-3 baseline, Well developed, unkempt, elderly appearing, obese HEENT: Pupils are round and equally reacting to light. EOMI. no scleral icterus. No conjunctival pallor. Normocephalic, atraumatic. No pharyngeal erythema. No thyromegaly. CARDIOVASCULAR: S1 and S2 muffled PULMONARY: diminished breath sounds bilaterally with no wheezing, some faint crackles and coarse rhonchi noted at the bases. ABDOMEN: soft. Nontender on exam. obese. non-distended, normoactive bowel sounds. No palpable organomegaly. MUSCULOSKELETAL: No joint swelling or deformity. EXTREMITIES: No cyanosis, clubbing, or pedal edema. Bilateral lower extremity swelling with some improvement in erythema and wounds noted on the right lower extremity, currently dressed with Kerlix dressing NEUROLOGICAL: Gross neurological examination did not reveal any focal deficits. Diffuse weakness SKIN: No rashes. Assessment: -Shortness of breath with acute hypoxic respiratory failure, likely secondary to volume overload with cardiorenal syndrome -Acute COVID-19 infection -Congestive heart failure with chronic systolic dysfunction, EF of 20% with nonischemic cardiomyopathy -Acute on chronic right lower leg cellulitis with MRSA, was maintained on antibiotics during dialysis on recent admission -Continued Infected right heel decubitus ulcer with evidence of osteomyelitis -Chronic obstructive pulmonary disease, not in exacerbation -Diabetes mellitus, type II uncontrolled with hyperglycemia -Acute renal failure with ATN from cardiorenal syndrome, worsening renal function patient has been started on hemodialysis and most recent admission maintained on Saturday//Saturday -Lower extremity chronic venous insufficiency -Hyperlipidemia -Chronic kidney disease stage III from diabetic nephropathy and nephrosclerosis -moderate to severe MR/moderate TR and severe pulmonary hypertension -Chronic low back pain. -Hypotension maintained on midodrine -Obstructive sleep apnea sometimes uses CPAP machine -Diabetic peripheral neuropathy -Anxiety -DJD -AICD -Obesity with a BMI of 31.4 -GI prophylaxis -DVT prophylaxis -Full Code Plan: Recommend to continue with current medications and management and nephrology along with infectious disease following. Patient continued on hemodialysis Saturday//Saturday was Patient tested positive for COVID-19 on ED admission and was maintained on 2 L of oxygen via nasal cannula and has weaned as tolerated currently on room air. Patient had significant volume overload with BNP of over 15,000 on admission showing some minimal improvements on lower extremity swelling. IV lasix 80 Q8 Antibiotics in the form of cefepime, Flagyl, vancomycin with infectious disease following for continued right lower extremity cellulitis with osteomyelitis Continue local wound care per infectious disease recommendations and have instructed the patient to elevate lower extremity swelling rest. Erythema noted to lower extremities appear to be slightly improved from a few days previously Home medications reviewed and resumed as appropriate. Patient having increased anxiety and will add low-dose Xanax as needed. Continue monitoring Accu-Cheks before meals and at bedtblood sugars remain extremely elevated will add long-acting as well. Awaiting PT/OT for evaluation Case management consulted as patient will likely need to return to ECF and/or have outpatient dialysis arranged and significant needs for discharge planning Patient is extremely noncompliant with medications and follow-up and he continues to be high risk for readmissions given patient's significant reggie rbidities Due to multiple complex medical issues, prognosis is guarded Objective - Vital Signs Vital signs: Vital Signs Temp 97.7 F 12/10/23 13:58 Pulse 97 07/07/23 13:58 Resp 21 07/07/23 13:58 BP 102/78 07/07/23 13:58 Pulse Ox 98 07/07/23 13:58 FiO2 Intake & Output 07/06/23 07/07/23 07/07/23 18:59 06:59 18:59 Intake Total 500 Output Total 1500 175 Balance -1000 -175 Intake: Hemodialysis 500 Output: Urine 175 Hemodialysis 1500 Other: Voiding Method Toilet Toilet # Voids 1 2 1 # Bowel Movements 1 - Labs CBC & Chem 7: 07/06/23 06:59 07/06/23 06:59 Labs: Abnormal Lab Results - Last 24 Hours (Table) 07/06/23 07/06/23 07/06/23 Range/Units 06:59 16:50 20:49 POC Glucose (mg/dL) 228 H 195 H (70-110) mg/dL Hemoglobin A1c 7.5 H (<=6.0) % 07/07/23 Range/Units 11:26 POC Glucose (mg/dL) 147 H (70-110) mg/dL Hemoglobin A1c (<=6.0) % Assessment and Plan Time with Patient: Greater than 30
[2023-07-08 05:53] LABS: Glucose,Whole Blood 133 mg/dL (70-110)
--- NOTE | 2023-07-08 08:15 | P.PN ---
Subjective Progress Note Date: 07/05/23 Principal diagnosis: Reason for follow-up his right heel osteomyelitis and covid 19 Patient is a 53-year-old male with a past medical history significant for diabetes mellitus hypertension hyperlipidemia CT patient did have right heel diabetic foot infection underlying osteomyelitis initial cultures were positive for Proteus Streptococcus with recent culture positive for MRSA follow the patient was advised daptomycin and cefepime with dialysis and Flagyl in the outp atient setting patient has been sent back to hospital with worsening shortness of breath and has been diagnosed with COVID-19 infection. On today's evaluation that is 07/05/2023, the patient is breathing comfortably on room air patient denies any chest pain denies any worsening cough or sputum production no nausea vomiting no abdominal pain no diarrhea. Patient did have a white count of 10.07, creatinine is 2.2 Objective - Vital Signs Vital signs: Vital Signs Temp 97.1 F L 07/05/23 09:47 Pulse 101 H 07/05/23 09:47 Resp 22 07/05/23 09:47 BP 113/74 07/05/23 09:47 Pulse Ox 97 07/05/23 09:47 FiO2 Intake & Output 07/04/23 07/05/23 07/05/23 18:59 06:59 18:59 Intake Total 400 Output Total 134 Balance 266 Weight 102.058 kg Intake: Hemodialysis 400 Output: Hemodialysis 134 - Exam GENERAL DESCRIPTION: A middle-age male up in the chair in no distress RESPIRATORY SYSTEM: Unlabored breathing , decreased intensity of breath sounds no wheeze HEART: S1 S2 regular rate and rhythm , ABDOMEN: Soft , no tenderness EXTREMITIES: Right heel is currently dressed no drainage of the dressing - Labs CBC & Chem 7: 07/06/23 06:59 07/06/23 06:59 Labs: Abnormal Lab Results - Last 24 Hours (Table) 07/04/23 07/04/23 07/04/23 Range/Units 10:19 10:19 10:19 WBC 11.0 H (3.8-10.6) k/uL RBC 4.29 L (4.30-5.90) m/uL Hgb 12.0 L (13.0-17.5) gm/dL MCHC 30.9 L (31.0-37.0) g/dL RDW 16.5 H (11.5-15.5) % Neutrophils # 8.1 H (1.3-7.7) k/uL PT 14.1 H (10.0-12.5) sec INR 1.4 H (<1.2) Sodium 135 L (137-145) mmol/L Chloride 95 L (98-107) mmol/L BUN 38 H (9-20) mg/dL Creatinine 1.75 H (0.66-1.25) mg/dL Glucose 102 H (74-99) mg/dL ALT 50 H (4-49) U/L Alkaline Phosphatase 192 H (38-126) U/L SARS-CoV-2 (PCR) (Not Detectd) 07/04/23 Range/Units 10:19 WBC (3.8-10.6) k/uL RBC (4.30-5.90) m/uL Hgb (13.0-17.5) gm/dL MCHC (31.0-37.0) g/dL RDW (11.5-15.5) % Neutrophils # (1.3-7.7) k/uL PT (10.0-12.5) sec INR (<1.2) Sodium (137-145) mmol/L Chloride (98-107) mmol/L BUN (9-20) mg/dL Creatinine (0.66-1.25) mg/dL Glucose (74-99) mg/dL ALT (4-49) U/L Alkaline Phosphatase (38-126) U/L SARS-CoV-2 (PCR) Detected A (Not Detectd) Assessment and Plan (1) COVID-19 virus infection Current Visit: Yes Status: Acute Code(s): U07.1 - COVID-19 SNOMED Code(s): 079760337 (2) Foot osteomyelitis, right Current Visit: No Status: Acute Code(s): M86.9 - OSTEOMYELITIS, UNSPECIFIED SNOMED Code(s): 7275767872989174 (3) Type 2 diabetes mellitus with left diabetic foot ulcer Current Visit: No Status: Acute Code(s): E11.621 - TYPE 2 DIABETES MELLITUS WITH FOOT ULCER; L97.529 - NON-PRESSURE CHRONIC ULCER OTH PRT LEFT FOOT W UNSP SEVERITY SNOMED Code(s): 317956802 (4) Type 2 diabetes mellitus with right diabetic foot ulcer Current Visit: No Status: Acute Code(s): E11.621 - TYPE 2 DIABETES MELLITUS WITH FOOT ULCER; L97.519 - NON-PRS CHRONIC ULCER OTH PRT RIGHT FOOT W UNSP SEVERITY SNOMED Code(s): 814907326 Plan: 1patient presented to hospital with increasing shortness of breath and this patient who did have a complicated history with the right heel diabetic foot infection underlying osteomyelitis with multiple pathogens recently extended stay in the hospital and now presenting back with shortness of breath did tested positive for COVID-19 however no significant groundglass opacities seen on chest x-ray and the patient did not have significant hypoxemia or respiratory symptoms treatment will be mostly supportive 2-patient with a right heel osteomyelitis /diabetic foot infection with multiple pathogen including MRSA Proteus strep and providencia along with anaerobes 3-patient to continue the daptomycin cefepime Flagyl along with zinc and ascorbic acid continue with heparin no need for steroids or remdesivir 4droplet isolation 5local wound care to the right heel wound with a Aquacel silver dressing change every 48 hours and keep the area of the pressure Dictation was produced using [employer] dictation software. please excuse any grammatical, word or spelling errors. Time with Patient: Less than 30
--- NOTE | 2023-07-08 08:18 | P.PN ---
Subjective Progress Note Date: 07/06/23 Principal diagnosis: Reason for follow-up his right heel osteomyelitis and covid 19 This is a telehealth visit Patient is a 53-year-old male with a past medical history significant for diabetes mellitus hypertension hyperlipidemia IA patient did have right heel diabetic foot infection underlying osteomyelitis initial cultures were positive for Proteus Streptococcus with recent culture positive for MRSA follow the patient was advised daptomycin and cefepime with dialysis and Flagyl in the outpatient setting patient has been sent back to hospital with worsening shor tness of breath and has been diagnosed with COVID-19 infection. On today's evaluation that is 07/06/2023, the patient remains to be afebrile, patient is is breathing comfortably on room air patient denies any chest pain, the patient did have occasional dry cough without sputum production no nausea v omiting no abdominal pain no diarrhea. Patient white count is up to 19.16, creatinine 0.2 Objective - Vital Signs Vital signs: Vital Signs Temp 98 F 07/06/23 07:20 Pulse 63 07/06/23 07:20 Resp 17 07/06/23 07:20 BP 88/69 07/06/23 07:20 Pulse Ox 97 07/06/23 09:16 FiO2 Intake & Output 07/05/23 07/06/23 07/06/23 18:59 06:59 18:59 Other: Voiding Method Toilet # Voids 2 # Bowel Movements 1 - Exam GENERAL DESCRIPTION: A middle-age male up in the chair in no distress RESPIRATORY SYSTEM: Unlabored breathing , decreased intensity of breath sounds no wheeze HEART: S1 S2 regular rate and rhythm , ABDOMEN: Soft , no tenderness EXTREMITIES: Right heel is currently dressed no drainage of the dressing - Labs CBC & Chem 7: 07/06/23 06:59 07/06/23 06:59 Labs: Abnormal Lab Results - Last 24 Hours (Table) 07/05/23 07/05/23 07/05/23 Range/Units 06:45 06:45 15:56 WBC 10.07 H (4.50-10.00) X 10*3/uL RBC 4.27 L (4.40-5.60) X 10*6/uL Hgb 11.6 L (13.0-17.0) g/dL Hct 37.2 L (39.6-50.0) % MCHC 31.2 L (32.0-37.0) g/dL RDW 18.1 H (11.5-14.5) % Immature Gran # 0.05 H (0.00-0.04) X 10*3/uL Neutrophils # 8.81 H (1.80-7.70) X 10*3/uL Lymphocytes # 0.77 L (0.90-5.00) X 10*3/uL Eosinophils # 0 L (0.04-0.35) X 10*3/uL Sodium 132 L (135-145) mmol/L Chloride 94 L (96-109) mmol/L Carbon Dioxide 21.5 L (21.6-31.8) mmol/L Anion Gap 16.50 H (4.00-12.00) mmol/L BUN 47.8 H (9.0-27.0) mg/dL Creatinine 2.2 H (0.6-1.5) mg/dL Est GFR (CKD-EPI) 35 L (>=60) BUN/Creatinine Ratio 21.73 H (12.00-20.00) Ratio Glucose 317 H (70-110) mg/dL POC Glucose (mg/dL) 421 H (70-110) mg/dL 07/05/23 07/05/23 07/05/23 Range/Units 20:06 21:10 22:52 WBC (4.50-10.00) X 10*3/uL RBC (4.40-5.60) X 10*6/uL Hgb (13.0-17.0) g/dL Hct (39.6-50.0) % MCHC (32.0-37.0) g/dL RDW (11.5-14.5) % Immature Gran # (0.00-0.04) X 10*3/uL Neutrophils # (1.80-7.70) X 10*3/uL Lymphocytes # (0.90-5.00) X 10*3/uL Eosinophils # (0.04-0.35) X 10*3/uL Sodium (135-145) mmol/L Chloride (96-109) mmol/L Carbon Dioxide (21.6-31.8) mmol/L Anion Gap (4.00-12.00) mmol/L BUN (9.0-27.0) mg/dL Creatinine (0.6-1.5) mg/dL Est GFR (CKD-EPI) (>=60) BUN/Creatinine Ratio (12.00-20.00) Ratio Glucose (70-110) mg/dL POC Glucose (mg/dL) 470 H 451 H 415 H (70-110) mg/dL 07/06/23 07/06/23 07/06/23 Range/Units 00:36 01:28 02:56 WBC (4.50-10.00) X 10*3/uL RBC (4.40-5.60) X 10*6/uL Hgb (13.0-17.0) g/dL Hct (39.6-50.0) % MCHC (32.0-37.0) g/dL RDW (11.5-14.5) % Immature Gran # (0.00-0.04) X 10*3/uL Neutrophils # (1.80-7.70) X 10*3/uL Lymphocytes # (0.90-5.00) X 10*3/uL Eosinophils # (0.04-0.35) X 10*3/uL Sodium (135-145) mmol/L Chloride (96-109) mmol/L Carbon Dioxide (21.6-31.8) mmol/L Anion Gap (4.00-12.00) mmol/L BUN (9.0-27.0) mg/dL Creatinine (0.6-1.5) mg/dL Est GFR (CKD-EPI) (>=60) BUN/Creatinine Ratio (12.00-20.00) Ratio Glucose (70-110) mg/dL POC Glucose (mg/dL) 300 H 282 H 217 H (70-110) mg/dL 07/06/23 Range/Units 06:26 WBC (4.50-10.00) X 10*3/uL RBC (4.40-5.60) X 10*6/uL Hgb (13.0-17.0) g/dL Hct (39.6-50.0) % MCHC (32.0-37.0) g/dL RDW (11.5-14.5) % Immature Gran # (0.00-0.04) X 10*3/uL Neutrophils # (1.80-7.70) X 10*3/uL Lymphocytes # (0.90-5.00) X 10*3/uL Eosinophils # (0.04-0.35) X 10*3/uL Sodium (135-145) mmol/L Chloride (96-109) mmol/L Carbon Dioxide (21.6-31.8) mmol/L Anion Gap (4.00-12.00) mmol/L BUN (9.0-27.0) mg/dL Creatinine (0.6-1.5) mg/dL Est GFR (CKD-EPI) (>=60) BUN/Creatinine Ratio (12.00-20.00) Ratio Glucose (70-110) mg/dL POC Glucose (mg/dL) 177 H (70-110) mg/dL Assessment and Plan (1) COVID-19 virus infection Current Visit: Yes Status: Acute Code(s): U07.1 - COVID-19 SNOMED Code(s): 803732465 (2) Foot osteomyelitis, right Current Visit: No Status: Acute Code(s): M86.9 - OSTEOMYELITIS, UNSPECIFIED SNOMED Code(s): 6957256965117191 (3) Type 2 diabetes mellitus with left diabetic foot ulcer Current Visit: No Status: Acute Code(s): E11.621 - TYPE 2 DIABETES MELLITUS WITH FOOT ULCER; L97.529 - NON-PRESSURE CHRONIC ULCER OTH PRT LEFT FOOT W UNSP SEVERITY SNOMED Code(s): 532570819 (4) Type 2 diabetes mellitus with right diabetic foot ulcer Current Visit: No Status: Acute Code(s): E11.621 - TYPE 2 DIABETES MELLITUS WITH FOOT ULCER; L97.519 - NON-PRS CHRONIC ULCER OTH PRT RIGHT FOOT W UNSP SEVERITY SNOMED Code(s): 129184868 Plan: 1patient presented to hospital with increasing shortness of breath and this patient who did have a complicated history with the right heel diabetic foot infection underlying osteomyelitis with multiple pathogens recently extended stay in the hospital and now presenting back with shortness of breath did tested positive for COVID-19 however no significant groundglass opacities seen on chest x-ray and the patient did not have significant hypoxemia or respiratory symptoms treatment will be mostly supportive 2-patient with a right heel osteomyelitis /diabetic foot infection with multiple pathogen including MRSA Proteus strep and providencia along with anaerobes 3-patient to continue the daptomycin cefepime Flagyl along with zinc and ascorbic acid continue with heparin no need for steroids or remdesivir 4local wound care to the right heel wound with a Aquacel silver dressing change every 48 hours and keep the area of the pressure 5-Patient did have slight worsening of his white count that we will monitor closely and if any worsening infection Dictation was produced using [employer] dictation software. please excuse any grammatical, word or spelling errors.
--- NOTE | 2023-07-08 08:21 | P.PN ---
Subjective Progress Note Date: 07/07/23 Principal diagnosis: Reason for follow-up his right heel osteomyelitis and covid 19 This is a telehealth visit Patient is a 53-year-old male with a past medical history significant for diabetes mellitus hypertension hyperlipidemia ND patient did have right heel diabetic foot infection underlying osteomyelitis initial cultures were positive for Proteus Streptococcus with recent culture positive for MRSA follow the patient was advised daptomycin and cefepime with dialysis and Flagyl in the outpatient setting patient has been sent back to hospital with worsening shor tness of breath and has been diagnosed with COVID-19 infection. On today's evaluation that is 07/07/2023, the patient continues to be afebrile, patient is is breathing comfortably on room air no need for supplemental oxygen, patient denies any chest pain, the patient denies any worsening cough or sputum production no nausea vomiting no abdominal pain no diarrhea. Patient white count is up to 19.16, creatinine 0.2 as of yesterday no lab draw today Objective - Vital Signs Vital signs: Vital Signs Temp 97.4 F L 07/07/23 07:37 Pulse 110 H 07/07/23 07:37 Resp 21 07/07/23 07:37 BP 111/80 07/07/23 07:37 Pulse Ox 98 07/07/23 07:37 FiO2 Intake & Output 07/06/23 07/07/23 07/07/23 18:59 06:59 18:59 Intake Total 500 Output Total 1500 175 Balance -1000 -175 Intake: Hemodialysis 500 Output: Urine 175 Hemodialysis 1500 Other: Voiding Method Toilet Toilet # Voids 1 2 # Bowel Movements 1 - Exam GENERAL DESCRIPTION: A middle-age male up in the chair in no distress RESPIRATORY SYSTEM: Unlabored breathing , decreased intensity of breath sounds no wheeze HEART: S1 S2 regular rate and rhythm , ABDOMEN: Soft , no tenderness EXTREMITIES: Right heel is currently dressed no drainage of the dressing - Labs CBC & Chem 7: 07/06/23 06:59 07/06/23 06:59 Labs: Abnormal Lab Results - Last 24 Hours (Table) 07/06/23 07/06/23 07/06/23 Range/Units 06:59 06:59 06:59 WBC 19.16 H (4.50-10.00) X 10*3/uL RBC 4.34 L (4.40-5.60) X 10*6/uL Hgb 12.0 L (13.0-17.0) g/dL Hct 39.1 L (39.6-50.0) % MCHC 30.7 L (32.0-37.0) g/dL RDW 18.0 H (11.5-14.5) % MPV 12.6 H (9.5-12.2) FL Immature Gran # 0.13 H (0.00-0.04) X 10*3/uL Neutrophils # 15.80 H (1.80-7.70) X 10*3/uL Monocytes # 1.43 H (0.20-1.00) X 10*3/uL Eosinophils # 0 L (0.04-0.35) X 10*3/uL Hypochromasia (manual) 2+ A Sodium 130 L (135-145) mmol/L Chloride 92 L (96-109) mmol/L Anion Gap 14.40 H (4.00-12.00) mmol/L BUN 64.0 H (9.0-27.0) mg/dL Creatinine 2.4 H (0.6-1.5) mg/dL Est GFR (CKD-EPI) 31 L (>=60) BUN/Creatinine Ratio 26.67 H (12.00-20.00) Ratio Glucose 142 H (70-110) mg/dL POC Glucose (mg/dL) (70-110) mg/dL Hemoglobin A1c 7.5 H (<=6.0) % 07/06/23 07/06/23 07/06/23 Range/Units 11:33 16:50 20:49 WBC (4.50-10.00) X 10*3/uL RBC (4.40-5.60) X 10*6/uL Hgb (13.0-17.0) g/dL Hct (39.6-50.0) % MCHC (32.0-37.0) g/dL RDW (11.5-14.5) % MPV (9.5-12.2) FL Immature Gran # (0.00-0.04) X 10*3/uL Neutrophils # (1.80-7.70) X 10*3/uL Monocytes # (0.20-1.00) X 10*3/uL Eosinophils # (0.04-0.35) X 10*3/uL Hypochromasia (manual) Sodium (135-145) mmol/L Chloride (96-109) mmol/L Anion Gap (4.00-12.00) mmol/L BUN (9.0-27.0) mg/dL Creatinine (0.6-1.5) mg/dL Est GFR (CKD-EPI) (>=60) BUN/Creatinine Ratio (12.00-20.00) Ratio Glucose (70-110) mg/dL POC Glucose (mg/dL) 182 H 228 H 195 H (70-110) mg/dL Hemoglobin A1c (<=6.0) % Assessment and Plan (1) COVID-19 virus infection Current Visit: Yes Status: Acute Code(s): U07.1 - COVID-19 SNOMED Code(s): 903008349 (2) Foot osteomyelitis, right Current Visit: No Status: Acute Code(s): M86.9 - OSTEOMYELITIS, UNSPECIFIED SNOMED Code(s): 1292015662750149 (3) Type 2 diabetes mellitus with left diabetic foot ulcer Current Visit: No Status: Acute Code(s): E11.621 - TYPE 2 DIABETES MELLITUS WITH FOOT ULCER; L97.529 - NON-PRESSURE CHRONIC ULCER OTH PRT LEFT FOOT W UNSP SEVERITY SNOMED Code(s): 694296584 (4) Type 2 diabetes mellitus with right diabetic foot ulcer Current Visit: No Status: Acute Code(s): E11.621 - TYPE 2 DIABETES MELLITUS WITH FOOT ULCER; L97.519 - NON-PRS CHRONIC ULCER OTH PRT RIGHT FOOT W UNSP SEVERITY SNOMED Code(s): 171242513 Plan: 1patient presented to hospital with increasing shortness of breath and this patient who did have a complicated history with the right heel diabetic foot infection underlying osteomyelitis with multiple pathogens recently extended stay in the hospital and now presenting back with shortness of breath did tested positive for COVID-19 however no significant groundglass opacities seen on chest x-ray and the patient did not have significant hypoxemia or respiratory symptoms treatment will be mostly supportive 2-patient with a right heel osteomyelitis /diabetic foot infection with multiple pathogen including MRSA Proteus strep and providencia along with anaerobes 3-patient to continue the daptomycin cefepime Flagyl along with zinc and ascorbic acid continue with heparin no need for steroids or remdesivir 4local wound care to the right heel wound with a Aquacel silver dressing change every 48 hours and keep the area of the pressure Patient did have slight worsening of his white count as of yesterday CBC pending from this morning if any further elevation we will repeat cultures and adjust antibiotic Dictation was produced using [employer] dictation software. please excuse any grammatical, word or spelling errors. Time with Patient: Less than 30
[2023-07-08 09:08] LABS: Basophils # (A) 0.02 X 10*3/uL (0.00-0.10); Basophils % (A) 0.1 %; Eosinophils # (A) 0.14 X 10*3/uL (0.04-0.35); HGB 11.6 g/dL (13.0-17.0); Lymphocytes # (A) 1.95 X 10*3/uL (0.90-5.00); Lymphocytes % (A) 13.6 %; MCH 26.8 pg (27.0-32.0); MCHC 30.5 g/dL (32.0-37.0); MCV 87.8 FL (80.0-97.0); Mean Platelet Volume 12.6 FL (9.5-12.2); Monocytes # (A) 0.88 X 10*3/uL (0.20-1.00); Monocytes % (A) 6.1 %; NRBC Per 100 WBC 0 X 10*3/uL (0.00-0.01); Neutrophils # (A) 11.23 X 10*3/uL (1.80-7.70); Neutrophils % (A) 78.5 %; Platelet Count 214 X 10*3/uL (140-440); RBC 4.33 X 10*6/uL (4.40-5.60); RDW 17.9 % (11.5-14.5); WBC 14.32 X 10*3/uL (4.50-10.00)
[2023-07-08 09:19] LABS: BUN/Creat Ratio 30.19 Ratio (12.00-20.00); Blood Urea Nitrogen 63.4 mg/dL (9.0-27.0); Calcium 9.1 mg/dL (8.7-10.3); Carbon Dioxide 23.4 mmol/L (21.6-31.8); Chloride 93 mmol/L (96-109); Glucose 128 mg/dL (70-110); Potassium 4.7 mmol/L (3.5-5.5); Sodium 130 mmol/L (135-145)
--- NOTE | 2023-07-08 10:48 | P.PN ---
Subjective Patient is seen in follow-up for acute kidney injury on chronic kidney disease. He currently hemodialysis dependent. Tolerating dialysis well. Denies chest pain or shortness of breath. Not a reliable historian. Vital signs are stable. Blood pressure on the lower side. General: No acute distress. HEENT: Head exam is unremarkable. LUNGS: Scattered rhonchi. HEART: Rate and Rhythm are regular. ABDOMEN: Nontender. EXTREMITITES: 2+ edema. Objective - Vital Signs Vital signs: Vital Signs Temp 98.4 F 07/08/23 08:00 Pulse 105 H 07/08/23 08:00 Resp 16 07/08/23 08:00 BP 117/82 07/08/23 08:00 Pulse Ox 98 07/08/23 08:00 FiO2 Intake & Output 07/07/23 07/08/23 07/08/23 18:59 06:59 18:59 Intake Total 326 Output Total 275 250 Balance -275 -250 326 Intake: Oral 326 Output: Urine 275 250 Other: Voiding Method Toilet # Voids 1 2 # Bowel Movements 1 - Labs CBC & Chem 7: 07/08/23 06:21 07/08/23 06:21 Labs: Abnormal Lab Results - Last 24 Hours (Table) 07/07/23 07/07/23 07/07/23 Range/Units 11:26 16:29 21:09 WBC (4.50-10.00) X 10*3/uL RBC (4.40-5.60) X 10*6/uL Hgb (13.0-17.0) g/dL Hct (39.6-50.0) % MCH (27.0-32.0) pg MCHC (32.0-37.0) g/dL RDW (11.5-14.5) % MPV (9.5-12.2) FL Immature Gran # (0.00-0.04) X 10*3/uL Neutrophils # (1.80-7.70) X 10*3/uL Sodium (135-145) mmol/L Chloride (96-109) mmol/L Anion Gap (4.00-12.00) mmol/L BUN (9.0-27.0) mg/dL Creatinine (0.6-1.5) mg/dL Est GFR (CKD-EPI) (>=60) BUN/Creatinine Ratio (12.00-20.00) Ratio Glucose (70-110) mg/dL POC Glucose (mg/dL) 147 H 137 H 156 H (70-110) mg/dL 07/08/23 07/08/23 07/08/23 Range/Units 05:52 06:21 06:21 WBC 14.32 H (4.50-10.00) X 10*3/uL RBC 4.33 L (4.40-5.60) X 10*6/uL Hgb 11.6 L (13.0-17.0) g/dL Hct 38.0 L (39.6-50.0) % MCH 26.8 L (27.0-32.0) pg MCHC 30.5 L (32.0-37.0) g/dL RDW 17.9 H (11.5-14.5) % MPV 12.6 H (9.5-12.2) FL Immature Gran # 0.10 H (0.00-0.04) X 10*3/uL Neutrophils # 11.23 H (1.80-7.70) X 10*3/uL Sodium 130 L (135-145) mmol/L Chloride 93 L (96-109) mmol/L Anion Gap 13.60 H (4.00-12.00) mmol/L BUN 63.4 H (9.0-27.0) mg/dL Creatinine 2.1 H (0.6-1.5) mg/dL Est GFR (CKD-EPI) 37 L (>=60) BUN/Creatinine Ratio 30.19 H (12.00-20.00) Ratio Glucose 128 H (70-110) mg/dL POC Glucose (mg/dL) 133 H (70-110) mg/dL Assessment and Plan Plan: Assessment: 1. Acute kidney injury secondary to ATN secondary to cardiorenal syndrome. Hemodialysis dependent. Started on hemodialysis 06/22/2023. Has permacath. Maintained on Saturday schedule outpatient. 2. Chronic kidney disease stage IIIa secondary to diabetic kidney disease and cardiorenal syndrome with creatinine as low as 1.4 on 06/03/2023 and near 1.7- 2.3 prior to starting dialysis. 3. Lower extremity wounds being followed by vascular surgery. Refused habitation in the past. On IV antibiotics. 4. Volume overload. Improving with ultrafiltration. 5. Acute on chronic systolic CHF with ejection fraction of less than 20% and moderate to severe mitral regurgitation, moderate tricuspid regurgitation and severe pulmonary hypertension. 6. Acute COVID-19 infection. 7. Hypervolemic hyponatremia. 8. Diabetes mellitus. Plan: Currently seen while undergoing hemodialysis. Another treatment water. Challenge ultrafiltration. Maintain midodrine. Hold for systolic blood pressure greater than 110. May get additional 10 mg of midodrine during dialysis if needed for hypotension. Monitor for renal recovery outpatient. Phosphorus level 3.7 dated 07/16/2023. Maintain low salt diet. Add 1500 mL fluid restriction.
[2023-07-08 11:18] LABS: Glucose,Whole Blood 175 mg/dL (70-110)
--- NOTE | 2023-07-08 14:33 | P.PN ---
Subjective Progress Note Date: 07/08/23 This is a 53-year-old male who was brought to the emergency department via EMS with increasing shortness of breath while at dialysis and unable to tolerate cycle and was found to have significant volume overload as well as being positive for COVID-19. Patient was recently discharged on the fifth of this month to [facility] for continued antibiotic therapy along with dialysis and significant weakness. Patient had renal failure secondary to cardiorenal syndrome and was started on dialysis on last admission. Patient is continued on Saturday//Saturday and wasn't able to tolerate the session of dialysis today. Patient sent to the hospital for further evaluation. Patient follows with Dr. Rodríguez in the outpatient setting with a past medical history of asthma, coronary artery disease, chronic systolic heart failure, COPD, diabetes mellitus, GERD, hyperlipidemia, hypertension, previous myocardial infarctions, sleep apnea with use of CPAP, SVT, ischemic cardiomyopathy and chronic nonhealing diabetic foot wounds that was suggestive of osteomyelitis. Patient was discharged on antibiotics and to be continued during dialysis per ID recommendations for chronic lower extremity wounds with suggestions of osteomyelitis. Patient is extremely noncompliant with medications and overall care including uncontrolled diabetes and continued nicotine dependence. Patient was admitted with shortness of breath with hypoxia secondary to volume overload and was also found to be COVID-19 positive. Infectious disease was consulted along with nephrology. BNP was 15,000 on admission. 07/05/2023 Patient is seen in follow-up today with nephrology and infectious disease following maintained IV antibiotics for lower extremity cellulitis as patient has been ongoing receiving antibiotics with dialysis per infectious disease from previous admission. Patient also with coated 19 infection and significant volume overload scheduled to receive dialysis tomorrow. Patient does have right chest wall port From previous admission and continued on hemodialysis. Patient was from [facility] and will likely need to return there for continued PT/OT therapy. Patient is currently afebrile and has weaned off oxygen currently on room air reports improvement in shortness of breath. Patient is diabetic and will add insulin sliding scale along with Accu-Cheks before meals and at bedtime as patient blood sugars are elevated will also add long-acting and monitor closely. Recommend PT/OT therapy evaluation. 07/06/2023 Patient is sitting on the side of the bed. Awake alert but slightly confused. Patient states that his breathing is better. No complaints of chest pain or tightness. Patient is undergoing hemodialysis today. Continued on midodrine and additional 10 mg during dialysis days. Otherwise bilateral lower extremity wounds wrapped and is being continued on antibiotic cefepime as per ID recommendations. Blood sugar is fairly controlled. Patient is afebrile. Laboratory data showed WBC 19.1 hemoglobin 12.0 and platelets 241, sodium 130 potassium 5.1 BUN 64 and creatinine 2.4 and blood sugar 142 A1c level is 7.5 07/07/2023 Patient is sitting on side of the bed. Awake alert and oriented. Patient underwent hemodialysis yesterday. Continued on Lasix IV 80 mg every 8 hourly. No complaints of chest pain. Does have exertional dyspnea. Also on antibiotics for bilateral lower extremity wounds. Daptomycin and cefepime. ID is on board. Nephrology is on board as well. Laboratory data reviewed. No nausea vomiting abdominal pain or diarrhea. Tolerating oral diet. 07/08/2023 Patient is seen in follow-up today no acute issues overnight. Patient continued on dialysis with nephrology following as he is now on continuous Saturday//Saturday. Patient with volume overload on admission and also positive for COVID-19 having shortness of breath although patient is on room air. Patient is continued on IV Lasix twice daily and will be discussed further with nephrology on discharge planning regarding dosing. Patient continues with some volume overload and will likely be having dialysis again today as well as continuing on his schedule. Patient is currently afebrile with no reports of chest pain or shortness of breath. Patient tolerating diet and recommend continue monitoring blood sugars closely as they have been somewhat uncontrolled and adjustments made including adding per email insulins. Recommend PT/OT therapy evaluation with case management following as there are plans on returning to [facility] for continued PT/OT therapy along with antibiotic therapy. Review of systems: Constitutional: No reports of fatigue, fever, or chills, reports continued anxiety Cardiovascular: No reports of chest pain or palpitations Respiratory: No reports of shortness of breath or cough GI: No reports of nausea, vomiting, or diarrhea : No reports of dysuria or retention Neurovascular: reports of generalized weakness and some continued lower extremity swelling with redness although feels is slightly improved All medications have been reviewed PHYSICAL EXAMINATION: GENERAL: The patient is alert and oriented x2-3 baseline, Well developed, unkempt, elderly appearing, obese HEENT: Pupils are round and equally reacting to light. EOMI. no scleral icterus. No conjunctival pallor. Normocephalic, atraumatic. No pharyngeal erythema. No thyromegaly. CARDIOVASCULAR: S1 and S2 muffled PULMONARY: diminished breath sounds bilaterally with no wheezing, some faint crackles and coarse rhonchi noted at the bases. ABDOMEN: soft. Nontender on exam. obese. non-distended, normoactive bowel sounds. No palpable organomegaly. MUSCULOSKELETAL: No joint swelling or deformity. EXTREMITIES: No cyanosis, clubbing, or pedal edema. Bilateral lower extremity swelling with some improvement in erythema and wounds noted on the right lower extremity, currently dressed with Kerlix dressing NEUROLOGICAL: Gross neurological examination did not reveal any focal deficits. Diffuse weakness SKIN: No rashes. Assessment: -Shortness of breath with acute hypoxic respiratory failure, likely secondary to volume overload with cardiorenal syndrome -Acute COVID-19 infection -Congestive heart failure with chronic systolic dysfunction, EF of 20% with nonischemic cardiomyopathy -Acute on chronic right lower leg cellulitis with MRSA, was maintained on antibiotics during dialysis on recent admission -Continued Infected right heel decubitus ulcer with evidence of osteomyelitis -Chronic obstructive pulmonary disease, not in exacerbation -Diabetes mellitus, type II uncontrolled with hyperglycemia -Acute renal failure with ATN from cardiorenal syndrome, worsening renal function patient has been started on hemodialysis and most recent admission maintained on Saturday//Saturday -Lower extremity chronic venous insufficiency -Hyperlipidemia -Chronic kidney disease stage III from diabetic nephropathy and nephrosclerosis -moderate to severe MR/moderate TR and severe pulmonary hypertension -Chronic low back pain. -Hypotension maintained on midodrine -Obstructive sleep apnea sometimes uses CPAP machine -Diabetic peripheral neuropathy -Anxiety -DJD -AICD -Obesity with a BMI of 31.4 -GI prophylaxis -DVT prophylaxis -Full Code Plan: Recommend to continue with current medications and management and nephrology along with infectious disease following. Patient continued on hemodialysis Saturday//Saturday and is receiving dialysis today. Patient tested positive for COVID-19 on ED admission and was maintained on 2 L of oxygen via nasal cannula and has weaned as tolerated currently on room air. Patient had significant volume overload with BNP of over 15,000 on admission showing some minimal improvements on lower extremity swelling Antibiotics in the form of cefepime, Flagyl, vancomycin with infectious disease following for continued right lower extremity cellulitis with osteomyelitis. Patient will continue on same antibiotic regimen on discharge to [facility] Continue local wound care per infectious disease recommendations and have instructed the patient to elevate lower extremity swelling rest. Erythema noted to lower extremities appear to be slightly improved from a few days previously Home medications reviewed and resumed as appropriate. Continue monitoring Accu-Cheks before meals and at bedtime. blood sugars remain extremely elevated will continue long-acting as well. Awaiting PT/OT for evaluation today and patient will return to [facility]. Case management following as patient will likely need to return to ECF and/or have outpatient dialysis arranged and significant needs for discharge planning Patient is extremely noncompliant with medications and follow-up and he continues to be high risk for readmissions given patient's significant comorbidities Due to multiple complex medical issues, prognosis is guarded Discharge to ECF in 24 hours The impression and plan of care has been dictated by Loraine Shearer, nurse practitioner as directed. Dr. Megan MD I have performed a history and examination and MDM of this patient, discussed the same with the dictator, and agree with the dictator's assessment and plan as written ,documented as a scribe. Based on total visit time, I have performed more than 50% of the visit. Any additional findings or plans will be noted. Objective - Vital Signs Vital signs: Vital Signs Temp 98.4 F 07/08/23 08:00 Pulse 105 H 07/08/23 08:00 Resp 16 07/08/23 08:00 BP 117/82 07/08/23 08:00 Pulse Ox 98 07/08/23 08:00 FiO2 Intake & Output 07/07/23 07/08/23 07/08/23 18:59 06:59 18:59 Intake Total 326 Output Total 275 250 Balance -275 -250 326 Intake: Oral 326 Output: Urine 275 250 Other: Voiding Method Toilet # Voids 1 2 # Bowel Movements 1 - Labs CBC & Chem 7: 07/08/23 06:21 07/08/23 06:21 Labs: Abnormal Lab Results - Last 24 Hours (Table) 07/07/23 07/07/23 07/07/23 Range/Units 11:26 16:29 21:09 WBC (4.50-10.00) X 10*3/uL RBC (4.40-5.60) X 10*6/uL Hgb (13.0-17.0) g/dL Hct (39.6-50.0) % MCH (27.0-32.0) pg MCHC (32.0-37.0) g/dL RDW (11.5-14.5) % MPV (9.5-12.2) FL Immature Gran # (0.00-0.04) X 10*3/uL Neutrophils # (1.80-7.70) X 10*3/uL Sodium (135-145) mmol/L Chloride (96-109) mmol/L Anion Gap (4.00-12.00) mmol/L BUN (9.0-27.0) mg/dL Creatinine (0.6-1.5) mg/dL Est GFR (CKD-EPI) (>=60) BUN/Creatinine Ratio (12.00-20.00) Ratio Glucose (70-110) mg/dL POC Glucose (mg/dL) 147 H 137 H 156 H (70-110) mg/dL 07/08/23 07/08/23 07/08/23 Range/Units 05:52 06:21 06:21 WBC 14.32 H (4.50-10.00) X 10*3/uL RBC 4.33 L (4.40-5.60) X 10*6/uL Hgb 11.6 L (13.0-17.0) g/dL Hct 38.0 L (39.6-50.0) % MCH 26.8 L (27.0-32.0) pg MCHC 30.5 L (32.0-37.0) g/dL RDW 17.9 H (11.5-14.5) % MPV 12.6 H (9.5-12.2) FL Immature Gran # 0.10 H (0.00-0.04) X 10*3/uL Neutrophils # 11.23 H (1.80-7.70) X 10*3/uL Sodium 130 L (135-145) mmol/L Chloride 93 L (96-109) mmol/L Anion Gap 13.60 H (4.00-12.00) mmol/L BUN 63.4 H (9.0-27.0) mg/dL Creatinine 2.1 H (0.6-1.5) mg/dL Est GFR (CKD-EPI) 37 L (>=60) BUN/Creatinine Ratio 30.19 H (12.00-20.00) Ratio Glucose 128 H (70-110) mg/dL POC Glucose (mg/dL) 133 H (70-110) mg/dL
[2023-07-08 16:48] LABS: Glucose,Whole Blood 158 mg/dL (70-110)
[2023-07-08] MEDS ORDERED: ZINC OXIDE PASTE (Z-GUARD) 1 APPLIC TOPICAL PRN (18:48)
[2023-07-08 19:58] LABS: Glucose,Whole Blood 154 mg/dL (70-110)
[2023-07-08] MEDS: ALPRAZolam 0.25 MG TAB PO PRN (22:49)
[2023-07-09 05:03] LABS: Glucose,Whole Blood 127 mg/dL (70-110)
[2023-07-09 11:10] LABS: Basophils # (A) 0.05 X 10*3/uL (0.00-0.10); Basophils % (A) 0.4 %; Eosinophils # (A) 0.47 X 10*3/uL (0.04-0.35); Eosinophils % (A) 3.7 %; HCT 38.3 % (39.6-50.0); HGB 11.7 g/dL (13.0-17.0); Lymphocytes # (A) 1.76 X 10*3/uL (0.90-5.00); Lymphocytes % (A) 13.9 %; MCH 27.3 pg (27.0-32.0); MCHC 30.5 g/dL (32.0-37.0); MCV 89.5 FL (80.0-97.0); Mean Platelet Volume 12.6 FL (9.5-12.2); Monocytes # (A) 0.96 X 10*3/uL (0.20-1.00); Monocytes % (A) 7.6 %; NRBC Per 100 WBC 0 X 10*3/uL (0.00-0.01); Neutrophils % (A) 73.6 %; Platelet Count 192 X 10*3/uL (140-440); RBC 4.28 X 10*6/uL (4.40-5.60); RDW 18.2 % (11.5-14.5); WBC 12.64 X 10*3/uL (4.50-10.00)
[2023-07-09 11:28] LABS: BUN/Creat Ratio 30.84 Ratio (12.00-20.00); Blood Urea Nitrogen 58.6 mg/dL (9.0-27.0); Calcium 8.5 mg/dL (8.7-10.3); Carbon Dioxide 24.4 mmol/L (21.6-31.8); Chloride 95 mmol/L (96-109); Glucose 134 mg/dL (70-110); Potassium 4.4 mmol/L (3.5-5.5); Sodium 131 mmol/L (135-145)
[2023-07-09 11:35] LABS: Glucose,Whole Blood 381 mg/dL (70-110)
--- NOTE | 2023-07-09 11:45 | P.PN ---
Subjective Patient is seen in follow-up for acute kidney injury on chronic kidney disease. He currently hemodialysis dependent. Tolerating dialysis well. Denies chest pain or shortness of breath. Not a reliable historian. Vital signs are stable. Blood pressure on the lower side. General: No acute distress. HEENT: Head exam is unremarkable. LUNGS: Scattered rhonchi. HEART: Rate and Rhythm are regular. ABDOMEN: Nontender. EXTREMITITES: 2+ edema. Objective - Vital Signs Vital signs: Vital Signs Temp 98.2 F 07/09/23 07:27 Pulse 91 07/09/23 10:37 Resp 20 07/09/23 10:37 BP 101/76 07/09/23 07:27 Pulse Ox 97 07/09/23 07:27 FiO2 Intake & Output 07/08/23 07/09/23 07/09/23 18:59 06:59 18:59 Intake Total 1181 Output Total 23378 Balance -69721 Intake: Oral 881 Hemodialysis 300 Output: Hemodialysis 68733 Other: Voiding Method Toilet Toilet # Voids 4 4 # Bowel Movements 2 - Labs CBC & Chem 7: 07/09/23 07:35 07/09/23 07:35 Labs: Abnormal Lab Results - Last 24 Hours (Table) 07/08/23 07/08/23 07/09/23 Range/Units 16:46 19:57 05:01 WBC (4.50-10.00) X 10*3/uL RBC (4.40-5.60) X 10*6/uL Hgb (13.0-17.0) g/dL Hct (39.6-50.0) % MCHC (32.0-37.0) g/dL RDW (11.5-14.5) % MPV (9.5-12.2) FL Immature Gran # (0.00-0.04) X 10*3/uL Neutrophils # (1.80-7.70) X 10*3/uL Eosinophils # (0.04-0.35) X 10*3/uL Sodium (135-145) mmol/L Chloride (96-109) mmol/L BUN (9.0-27.0) mg/dL Creatinine (0.6-1.5) mg/dL Est GFR (CKD-EPI) (>=60) BUN/Creatinine Ratio (12.00-20.00) Ratio Glucose (70-110) mg/dL POC Glucose (mg/dL) 158 H 154 H 127 H (70-110) mg/dL Calcium (8.7-10.3) mg/dL 07/09/23 07/09/23 07/09/23 Range/Units 07:35 07:35 11:32 WBC 12.64 H (4.50-10.00) X 10*3/uL RBC 4.28 L (4.40-5.60) X 10*6/uL Hgb 11.7 L (13.0-17.0) g/dL Hct 38.3 L (39.6-50.0) % MCHC 30.5 L (32.0-37.0) g/dL RDW 18.2 H (11.5-14.5) % MPV 12.6 H (9.5-12.2) FL Immature Gran # 0.10 H (0.00-0.04) X 10*3/uL Neutrophils # 9.30 H (1.80-7.70) X 10*3/uL Eosinophils # 0.47 H (0.04-0.35) X 10*3/uL Sodium 131 L (135-145) mmol/L Chloride 95 L (96-109) mmol/L BUN 58.6 H (9.0-27.0) mg/dL Creatinine 1.9 H (0.6-1.5) mg/dL Est GFR (CKD-EPI) 41 L (>=60) BUN/Creatinine Ratio 30.84 H (12.00-20.00) Ratio Glucose 134 H (70-110) mg/dL POC Glucose (mg/dL) 381 H (70-110) mg/dL Calcium 8.5 L (8.7-10.3) mg/dL Assessment and Plan Plan: Assessment: 1. Acute kidney injury secondary to ATN secondary to cardiorenal syndrome. Hemodialysis dependent. Started on hemodialysis 06/22/2023. Has permacath. Maintained on Saturday schedule outpatient. 2. Chronic kidney disease stage IIIa secondary to diabetic kidney disease and cardiorenal syndrome with creatinine as low as 1.4 on 06/03/2023 and near 1.7- 2.3 prior to starting dialysis. 3. Lower extremity wounds being followed by vascular surgery. Refused amputation in the past. On IV antibiotics. 4. Volume overload. Improving with ultrafiltration. 5. Acute on chronic systolic CHF with ejection fraction of less than 20% and moderate to severe mitral regurgitation, moderate tricuspid regurgitation and severe pulmonary hypertension. 6. Acute COVID-19 infection. 7. Hypervolemic hyponatremia. Better. 8. Diabetes mellitus. Plan: Currently seen while undergoing hemodialysis. Another treatment tomorrow if still in the hospital. Challenge ultrafiltration. Maintain midodrine. Hold for systolic blood pressure greater than 110. May get additional 10 mg of midodrine during dialysis if needed for hypotension. Monitor for renal recovery outpatient. Phosphorus level 3.7 dated 07/16/2023. Maintain low salt diet and 1500 mL fluid restriction.
[2023-07-09 12:21] VITALS: BP 97/71; PULSE 96; RESP 18; TEMP 97.9
--- NOTE | 2023-07-09 12:46 | P.DS ---
Providers Date of admission: 07/04/23 11:52 Expected date of discharge: 07/09/23 Attending physician: Sixto Ha MD Consults: 07/04/23 11:50 Consult Physician Urgent Consulting Provider: Kalani Castellanos Consult Reason/Comments: dialysis Do you want consulting provider notified?: Already Contacted 07/04/23 12:26 Consult Physician Routine Consulting Provider: Yesenia Santoyo Consult Reason/Comments: right foot wound, covid 19 infection Do you want consulting provider notified?: Yes Primary care physician: Hany Rodríguez [facility] Course: Final diagnosis -Shortness of breath with acute hypoxic respiratory failure, likely secondary to volume overload with cardiorenal syndrome -Acute COVID-19 infection -Congestive heart failure with chronic systolic dysfunction, EF of 20% with nonischemic cardiomyopathy -Acute on chronic right lower leg cellulitis with MRSA, maintained on antibiotics during dialysis on recent admission -Continued Infected right heel decubitus ulcer with evidence of osteomyelitis -Chronic obstructive pulmonary disease, not in exacerbation -Diabetes mellitus, type II uncontrolled with hyperglycemia -Acute renal failure with ATN from cardiorenal syndrome, worsening renal function patient has been started on hemodialysis and most recent admission maintained on Saturday//Saturday -Lower extremity chronic venous insufficiency -Hyperlipidemia -Chronic kidney disease stage III from diabetic nephropathy and nephrosclerosis -moderate to severe MR/moderate TR and severe pulmonary hypertension -Chronic low back pain. -Hypotension maintained on midodrine -Obstructive sleep apnea sometimes uses CPAP machine -Diabetic peripheral neuropathy -Anxiety -DJD -AICD -Obesity with a BMI of 31.4 -GI prophylaxis -DVT prophylaxis -Full Code Discharge disposition Patient is being discharged in a stable condition with guarded prognosis to [facility] . Patient will follow-up with Dr. Rodríguez in the outpatient setting upon discharge. Patient is to continue with hemodialysis as scheduled and will be continuing on daptomycin and cefepime with dialysis for 10 doses each. Patient also to continue with Flagyl 3 times daily for the next 10 days. Repeat labs including CBC, CMP, CK, CRP in the outpatient setting in 2-3 days. Continue local wound care was being paced to lower extremities and elevated while at rest. Total time taken is greater than 35 minutes. Hospital course This is a 53-year-old male who was recently admitted with significant volume overload unable to tolerate dialysis outpatient due to shortness of breath and was admitted here found to have COVID-19 infection along with acute hypoxic respiratory failure. Patient was briefly on 2 L although underwent dialysis and is currently continued and maintained on room air with no significant shortness of breath. Patient was continued on IV diuresis during hospitalization and will continue on diuretic therapy outpatient with close outpatient follow-up with nephrology and continue dialysis as scheduled. Patient's blood sugars are uncontrolled and continued on current regimen and home medications have been resumed. Recommend heart healthy, consistent carb, renal diet with Accu-Cheks before meals and at bedtime and continue sliding scale. Patient will continue local wound care with zinc paste to lower extremities and elevated while at rest and will need outpatient follow-up at the wound center. Patient has been cleared by consultations and evaluated by physical therapy recommending continued rehab and patient will be returning to [facility]. Please refer to other consultation notes for further HPI. Currently no reports of chest pain, shortness of breath, or palpitations. Patient is afebrile. No reports of nausea or vomiting and patient is tolerating diet. Patient will be going to [facility] today. Extremely guarded prognosis given patient's noncompliance with significant comorbidities and is high risk for readmissions Physical exam: Gen: This is a 53-year-old male who is awake, alert and oriented 2-3, baseline, well-developed, well-nourished, obese, appears elderly and unkempt HEENT: Head is atraumatic, normocephalic. Pupils equal, round. Sclerae is anicteric. NECK: Supple. No JVD. No lymphadenopathy. No thyromegaly. LUNGS: Diminished breath sounds bilaterally. No wheezes or rhonchi. No intercostal retractions. HEART: Regular rate and rhythm. No murmur. ABDOMEN: Soft. Obese. Bowel sounds are present. No masses. No tenderness. EXTREMITIES: No pedal edema. No calf tenderness. NEUROLOGICAL: Patient is awake, alert and oriented x2-3. Cranial nerves 2 through 12 are grossly intact. Diffusely weak Please refer to medication reconciliation sheet for a list of medications. The impression and plan of care has been dictated by Loraine Shearer, Nurse Practitioner as directed. Dr. Megan MD I have performed a history and examination and MDM of this patient, discussed the same with the dictator, and agree with the dictator's assessment and plan as written ,documented as a scribe. Based on total visit time, I have performed more than 50% of the visit. Patient Condition at Discharge: Stable Plan - Discharge Summary New Discharge Prescriptions: New DAPTOmycin [Cubicin] 500 mg IVPB Q48H #10 each Cefepime [Maxipime] 2 gm IVPB Q48H #10 each INSULIN ASPART (NovoLOG) [NovoLOG (formulary)] 5 unit SQ AC-TID each INSULIN ASPART (NovoLOG) [NovoLOG (formulary)] 0 unit SQ ACHS each Zinc Sulfate [Orazinc] 220 mg PO DAILY 14 Days #14 cap Midodrine [ProAmatine] 5 - 10 mg PO PER PROTOCOL PRN tab PRN Reason: Blood Pressure - Low Ascorbic Acid [Vitamin C] 1,000 mg PO DAILY tab Continue SILVER sulfADIAZINE CREAM [Silvadene Cream] 1 applic TOPICAL BID@0800,1700 Cefepime [Maxipime] 2 gm IVP Q48H #12 each Lactulose [Cephulac] 20 gm PO DAILY PRN ml PRN Reason: Constipation DULoxetine HCL [Cymbalta] 30 mg PO DAILY cap traZODone HCL [Desyrel] 50 mg PO HS PRN tab PRN Reason: Insomnia Aspirin 81 mg PO DAILY Famotidine [Pepcid] 20 mg PO DAILY Heparin Sodium,Porcine (1 ml) [Heparin Sodium] 5,000 unit SQ TID@0700,1500,2300 Insulin Glargine,Hum.rec.anlog [Toujeo Solostar] 28 units SQ HS Midodrine HCl [ProAmatine] 10 mg PO TID@0730,1100,1600 Multivitamins, Thera [Multivitamin (formulary)] 1 tab PO DAILY QUEtiapine [SEROquel] 12.5 mg PO BID PRN PRN Reason: Agitation Albuterol Inhaler [Ventolin Hfa Inhaler] 2 puff INHALATION RT-QID PRN PRN Reason: Shortness Of Breath DAPTOmycin [Cubicin] 600 mg IV Q48H #12 each Ipratropium-Albuterol Nebulize [Duoneb 0.5 mg-3 mg/3 ml Soln] 3 ml INHALATION RT-QID each Folic Acid 1 mg PO DAILY tab fluPHENAZine [Prolixin] 3 mg PO HS tab Acetaminophen Tab [Tylenol] 650 mg PO Q6HR PRN tab PRN Reason: Mild Pain Or Fever > 100.5 Thiamine [Vitamin B-1] 100 mg PO DAILY #30 tablet OLANZapine [ZyPREXA] 5 mg PO TID PRN tab PRN Reason: Agitation Metoprolol Tartrate [Lopressor] 25 mg PO BID QUEtiapine [SEROquel] 12.5 mg PO BID Torsemide [Soaanz] 40 mg PO TUTHSA@1000 Torsemide [Soaanz] 40 mg PO SUMOWEFR@0700 Changed metroNIDAZOLE [Flagyl] 500 mg PO TID@0700,1500,2300 10 Days #30 capsule HYDROcodone/APAP 5-325MG [Avalon 5-325] 1 tab PO Q6HR PRN #4 tab PRN Reason: Pain Discontinued Sodium Bicarbonate Tab 650 mg PO BID@0730,1600 INSULIN LISPRO (HumaLOG) [humaLOG] See Protocol SQ ACHS Discharge Medication List Albuterol Inhaler [Ventolin Hfa Inhaler] 2 puff INHALATION RT-QID PRN 07/06/22 [History] SILVER sulfADIAZINE CREAM [Silvadene Cream] 1 applic TOPICAL BID@0800,1700 06/04/23 [History] Acetaminophen Tab [Tylenol] 650 mg PO Q6HR PRN tab 07/02/23 [Rx] Cefepime [Maxipime] 2 gm IVP Q48H #12 each 07/02/23 [Rx] DAPTOmycin [Cubicin] 600 mg IV Q48H #12 each 07/02/23 [Rx] DULoxetine HCL [Cymbalta] 30 mg PO DAILY cap 07/02/23 [Rx] Folic Acid 1 mg PO DAILY tab 07/02/23 [Rx] Ipratropium-Albuterol Nebulize [Duoneb 0.5 mg-3 mg/3 ml Soln] 3 ml INHALATION RT-QID each 07/02/23 [Rx] Lactulose [Cephulac] 20 gm PO DAILY PRN ml 07/02/23 [Rx] OLANZapine [ZyPREXA] 5 mg PO TID PRN tab 07/02/23 [Rx] Thiamine [Vitamin B-1] 100 mg PO DAILY #30 tablet 07/02/23 [Rx] fluPHENAZine [Prolixin] 3 mg PO HS tab 07/02/23 [Rx] traZODone HCL [Desyrel] 50 mg PO HS PRN tab 07/02/23 [Rx] Aspirin 81 mg PO DAILY 07/04/23 [History] Famotidine [Pepcid] 20 mg PO DAILY 07/04/23 [History] Heparin Sodium,Porcine (1 ml) [Heparin Sodium] 5,000 unit SQ TID@0700,1500,2300 07/04/23 [History] Insulin Glargine,Hum.rec.anlog [Toujeo Solostar] 28 units SQ HS 07/04/23 [History] Metoprolol Tartrate [Lopressor] 25 mg PO BID 07/04/23 [History] Midodrine HCl [ProAmatine] 10 mg PO TID@0730,1100,1600 07/04/23 [History] Multivitamins, Thera [Multivitamin (formulary)] 1 tab PO DAILY 07/04/23 [History] QUEtiapine [SEROquel] 12.5 mg PO BID 07/04/23 [History] QUEtiapine [SEROquel] 12.5 mg PO BID PRN 07/04/23 [History] Torsemide [Soaanz] 40 mg PO SUMOWEFR@0700 07/04/23 [History] Torsemide [Soaanz] 40 mg PO TUTHSA@1000 07/04/23 [History] Ascorbic Acid [Vitamin C] 1,000 mg PO DAILY tab 07/09/23 [Rx] Cefepime [Maxipime] 2 gm IVPB Q48H #10 each 07/09/23 [Rx] DAPTOmycin [Cubicin] 500 mg IVPB Q48H #10 each 07/09/23 [Rx] HYDROcodone/APAP 5-325MG [Avalon 5-325] 1 tab PO Q6HR PRN #4 tab 07/09/23 [Rx] INSULIN ASPART (NovoLOG) [NovoLOG (formulary)] 0 unit SQ ACHS each 07/09/23 [Rx] INSULIN ASPART (NovoLOG) [NovoLOG (formulary)] 5 unit SQ AC-TID each 07/09/23 [Rx] Midodrine [ProAmatine] 5 - 10 mg PO PER PROTOCOL PRN tab 07/09/23 [Rx] Zinc Sulfate [Orazinc] 220 mg PO DAILY 14 Days #14 cap 07/09/23 [Rx] metroNIDAZOLE [Flagyl] 500 mg PO TID@0700,1500,2300 10 Days #30 capsule 07/09/23 [Rx] Follow up Appointment(s)/Referral(s): Hany Rodríguez MD [Primary Care Provider] - 1-2 days [facility], [NON-STAFF] - As Needed Ambulatory/Diagnostic Orders: Complete Blood Count w/diff [LAB.AMB] Time Frame: 2 Days, Location: None Selected Activity/Diet/Wound Care/Special Instructions: Patient is returning back to [facility] Activity as tolerated Continue on dialysis as scheduled and is to receive daptomycin with cefepime every 4 day at hours after dialysis for 10 total doses each continue oral Flagyl 3 times daily for 10 days Continue heart healthy consistent carb diet with renal diet, fluid restrictions of 1500 mL per day Continue to monitor Accu-Cheks before meals and at bedtime and treat accordingly with sliding scale and other regimen Continue zinc oxide paste to the wounds of lower extremities and frequent dressing changes daily and as needed if becoming soiled Encourage the patient to elevate lower extremities while at rest Follow-up primary care provider on discharge Follow-up with nephrology outpatient Discharge Disposition: TRANSFER TO SNF/ECF
--- NOTE | 2023-07-09 15:56 | P.PN ---
Subjective Progress Note Date: 07/08/23 Principal diagnosis: Reason for follow-up his right heel osteomyelitis and covid 19 Patient is a 53-year-old male with a past medical history significant for diabetes mellitus hypertension hyperlipidemia SC patient did have right heel diabetic foot infection underlying osteomyelitis initial cultures were positive for Proteus Streptococcus with recent culture positive for MRSA follow the patient was advised daptomycin and cefepime with dialysis and Flagyl in the out patient setting patient has been sent back to hospital with worsening shortness of breath and has been diagnosed with COVID-19 infection. On today's evaluation that is 07/08/2023 the patient denies any fever or any chills, the patient is breathing comfortably on room air, the patient denies nausea vomiting or any diarrhea, and no abdominal pain, the patient denies having any chest pain shortness of breath or cough, denies any worsening pain to right heel wound area Patient white count is down to 14.32 and a creatinine of 2.1 Objective - Vital Signs Vital signs: Vital Signs Temp 98.4 F 07/08/23 08:00 Pulse 105 H 07/08/23 08:00 Resp 16 07/08/23 08:00 BP 117/82 07/08/23 08:00 Pulse Ox 98 07/08/23 08:00 FiO2 Intake & Output 07/07/23 07/08/23 07/08/23 18:59 06:59 18:59 Intake Total 326 Output Total 275 250 Balance -275 -250 326 Intake: Oral 326 Output: Urine 275 250 Other: Voiding Method Toilet # Voids 1 2 # Bowel Movements 1 - Exam GENERAL DESCRIPTION: A middle-age male up in the chair in no distress RESPIRATORY SYSTEM: Unlabored breathing , decreased intensity of breath sounds no wheeze HEART: S1 S2 regular rate and rhythm , ABDOMEN: Soft , no tenderness EXTREMITIES: Right heel is currently dressed no drainage of the dressing - Labs CBC & Chem 7: 07/09/23 07:35 07/09/23 07:35 Labs: Abnormal Lab Results - Last 24 Hours (Table) 07/07/23 07/07/23 07/08/23 Range/Units 16:29 21:09 05:52 WBC (4.50-10.00) X 10*3/uL RBC (4.40-5.60) X 10*6/uL Hgb (13.0-17.0) g/dL Hct (39.6-50.0) % MCH (27.0-32.0) pg MCHC (32.0-37.0) g/dL RDW (11.5-14.5) % MPV (9.5-12.2) FL Immature Gran # (0.00-0.04) X 10*3/uL Neutrophils # (1.80-7.70) X 10*3/uL Sodium (135-145) mmol/L Chloride (96-109) mmol/L Anion Gap (4.00-12.00) mmol/L BUN (9.0-27.0) mg/dL Creatinine (0.6-1.5) mg/dL Est GFR (CKD-EPI) (>=60) BUN/Creatinine Ratio (12.00-20.00) Ratio Glucose (70-110) mg/dL POC Glucose (mg/dL) 137 H 156 H 133 H (70-110) mg/dL 07/08/23 07/08/23 07/08/23 Range/Units 06:21 06:21 11:17 WBC 14.32 H (4.50-10.00) X 10*3/uL RBC 4.33 L (4.40-5.60) X 10*6/uL Hgb 11.6 L (13.0-17.0) g/dL Hct 38.0 L (39.6-50.0) % MCH 26.8 L (27.0-32.0) pg MCHC 30.5 L (32.0-37.0) g/dL RDW 17.9 H (11.5-14.5) % MPV 12.6 H (9.5-12.2) FL Immature Gran # 0.10 H (0.00-0.04) X 10*3/uL Neutrophils # 11.23 H (1.80-7.70) X 10*3/uL Sodium 130 L (135-145) mmol/L Chloride 93 L (96-109) mmol/L Anion Gap 13.60 H (4.00-12.00) mmol/L BUN 63.4 H (9.0-27.0) mg/dL Creatinine 2.1 H (0.6-1.5) mg/dL Est GFR (CKD-EPI) 37 L (>=60) BUN/Creatinine Ratio 30.19 H (12.00-20.00) Ratio Glucose 128 H (70-110) mg/dL POC Glucose (mg/dL) 175 H (70-110) mg/dL Assessment and Plan (1) COVID-19 virus infection Current Visit: Yes Status: Acute Code(s): U07.1 - COVID-19 SNOMED Code(s): 623421772 (2) Foot osteomyelitis, right Current Visit: No Status: Acute Code(s): M86.9 - OSTEOMYELITIS, UNSPECIFIED SNOMED Code(s): 2610749120172669 (3) Type 2 diabetes mellitus with left diabetic foot ulcer Current Visit: No Status: Acute Code(s): E11.621 - TYPE 2 DIABETES MELLITUS WITH FOOT ULCER; L97.529 - NON-PRESSURE CHRONIC ULCER OTH PRT LEFT FOOT W UNSP S [facility] SNOMED Code(s): 548196595 (4) Type 2 diabetes mellitus with right diabetic foot ulcer Current Visit: No Status: Acute Code(s): E11.621 - TYPE 2 DIABETES MELLITUS WITH FOOT ULCER; L97.519 - NON-PRS CHRONIC ULCER OTH PRT RIGHT FOOT W UNSP SEVERITY SNOMED Code(s): 393770650 Plan: 1patient presented to hospital with increasing shortness of breath and this patient who did have a complicated history with the right heel diabetic foot infection underlying osteomyelitis with multiple pathogens recently extended s gray in the hospital and now presenting back with shortness of breath did tested positive for COVID-19 however no significant groundglass opacities seen on chest x-ray and the patient did not have significant hypoxemia or respiratory symptoms treatment will be mostly supportive 2-patient with a right heel osteomyelitis /diabetic foot infection with multiple pathogen including MRSA Proteus strep and providencia along with anaerobes 3-patient to continue the daptomycin cefepime Flagyl along with zinc and ascorbic acid continue with heparin no need for steroids or remdesivir 4local wound care to the right heel wound with a Aquacel silver dressing change every 48 hours and keep the area of the pressure 5the patient white count is trending down and will be monitored closely Dictation was produced using [employer] software. please excuse any grammatical, word or spelling errors. Time with Patient: Less than 30
--- NOTE | 2023-07-09 15:57 | P.PN ---
Subjective Progress Note Date: 07/09/23 Principal diagnosis: Reason for follow-up his right heel osteomyelitis and covid 19 Patient is a 53-year-old male with a past medical history significant for diabetes mellitus hypertension hyperlipidemia [place] patient did have right heel diabetic foot infection underlying osteomyelitis initial cultures were positive for Proteus Streptococcus with recent culture positive for MRSA follow the patient was advised daptomycin and cefepime with dialysis and Flagyl in the out patient setting patient has been sent back to hospital with worsening shortness of breath and has been diagnosed with COVID-19 infection. On today's evaluation that is 07/09/2023 the patient remains to be afebrile, the patient is breathing comfortably on room air and denies any chest pain shortness of breath or cough, the patient denies nausea vomiting or any diarrhea, and no abdominal pain, the patient denies any worsening pain to right heel wound area Patient white count is down to 12.64 and a creatinine of 1.9 Objective - Vital Signs Vital signs: Vital Signs Temp 97.9 F 07/09/23 11:59 Pulse 96 07/09/23 11:59 Resp 18 07/09/23 11:59 BP 97/71 07/09/23 11:59 Pulse Ox 97 07/09/23 07:27 FiO2 Intake & Output 07/08/23 07/09/23 07/09/23 18:59 06:59 18:59 Intake Total 1181 650 Output Total 39031 2800 Balance -37286 -4706 Intake: Oral 881 350 Hemodialysis 300 300 Output: Hemodialysis 28517 2800 Other: Voiding Method Toilet Toilet # Voids 4 4 # Bowel Movements 2 - Exam GENERAL DESCRIPTION: A middle-age male up in the chair in no distress RESPIRATORY SYSTEM: Unlabored breathing , decreased intensity of breath sounds no wheeze HEART: S1 S2 regular rate and rhythm , ABDOMEN: Soft , no tenderness EXTREMITIES: Right heel is currently dressed no drainage of the dressing - Labs CBC & Chem 7: 07/09/23 07:35 07/09/23 07:35 Labs: Abnormal Lab Results - Last 24 Hours (Table) 07/08/23 07/08/23 07/09/23 Range/Units 16:46 19:57 05:01 WBC (4.50-10.00) X 10*3/uL RBC (4.40-5.60) X 10*6/uL Hgb (13.0-17.0) g/dL Hct (39.6-50.0) % MCHC (32.0-37.0) g/dL RDW (11.5-14.5) % MPV (9.5-12.2) FL Immature Gran # (0.00-0.04) X 10*3/uL Neutrophils # (1.80-7.70) X 10*3/uL Eosinophils # (0.04-0.35) X 10*3/uL Sodium (135-145) mmol/L Chloride (96-109) mmol/L BUN (9.0-27.0) mg/dL Creatinine (0.6-1.5) mg/dL Est GFR (CKD-EPI) (>=60) BUN/Creatinine Ratio (12.00-20.00) Ratio Glucose (70-110) mg/dL POC Glucose (mg/dL) 158 H 154 H 127 H (70-110) mg/dL Calcium (8.7-10.3) mg/dL 07/09/23 07/09/23 07/09/23 Range/Units 07:35 07:35 11:32 WBC 12.64 H (4.50-10.00) X 10*3/uL RBC 4.28 L (4.40-5.60) X 10*6/uL Hgb 11.7 L (13.0-17.0) g/dL Hct 38.3 L (39.6-50.0) % MCHC 30.5 L (32.0-37.0) g/dL RDW 18.2 H (11.5-14.5) % MPV 12.6 H (9.5-12.2) FL Immature Gran # 0.10 H (0.00-0.04) X 10*3/uL Neutrophils # 9.30 H (1.80-7.70) X 10*3/uL Eosinophils # 0.47 H (0.04-0.35) X 10*3/uL Sodium 131 L (135-145) mmol/L Chloride 95 L (96-109) mmol/L BUN 58.6 H (9.0-27.0) mg/dL Creatinine 1.9 H (0.6-1.5) mg/dL Est GFR (CKD-EPI) 41 L (>=60) BUN/Creatinine Ratio 30.84 H (12.00-20.00) Ratio Glucose 134 H (70-110) mg/dL POC Glucose (mg/dL) 381 H (70-110) mg/dL Calcium 8.5 L (8.7-10.3) mg/dL Assessment and Plan (1) COVID-19 virus infection Current Visit: Yes Status: Acute Code(s): U07.1 - COVID-19 SNOMED Code(s): 292776408 (2) Foot osteomyelitis, right Current Visit: No Status: Acute Code(s): M86.9 - OSTEOMYELITIS, UNSPECIFIED SNOMED Code(s): 6324326724908336 (3) Type 2 diabetes mellitus with left diabetic foot ulcer Current Visit: No Status: Acute Code(s): E11.621 - TYPE 2 DIABETES MELLITUS WITH FOOT ULCER; L97.529 - NON-PRESSURE CHRONIC ULCER OTH PRT LEFT FOOT W UNSP SEVERITY SNOMED Code(s): 282162343 (4) Type 2 diabetes mellitus with right diabetic foot ulcer Current Visit: No Status: Acute Code(s): E11.621 - TYPE 2 DIABETES MELLITUS WITH FOOT ULCER; L97.519 - NON-PRS CHRONIC ULCER OTH PRT RIGHT FOOT W UNSP SEVERITY SNOMED Code(s): 404260771 Plan: 1patient presented to hospital with increasing shortness of breath and this patient who did have a complicated history with the right heel diabetic foot infection underlying osteomyelitis with multiple pathogens recently extended stay in the hospital and now presenting back with shortness of breath did tested positive for COVID-19 however no significant groundglass opacities seen on chest x-ray and the patient did not have significant hypoxemia or respiratory symptoms treatment will be mostly supportive 2-patient with a right heel osteomyelitis /diabetic foot infection with multiple pathogen including MRSA Proteus strep and providencia along with anaerobes 3-patient to continue the daptomycin cefepime Flagyl for another few weeks on discharge and close outpatient follow-up local wound care to continue with Aquacel silver dressing and close outpatient follow-up in the wound care center plan of care were discussed with the LOGISTICS ENGINEERING MANAGER for admitting been working on discharge Dictation was produced using [employer] software. please excuse any grammatical, word or spelling errors. Time with Patient: Less than 30
[2023-07-09 16:05] VITALS: BMI 31.4
== END 2023-07-09 15:57 | DRG 177 ==
LOC: EC 10:05 → 4SSUR 11:52
PROVIDERS: ADMIT Internal Medicine; ATTEND Internal Medicine
PROC: 5A1D70Z Performance of Urinary Filtration, Intermittent, Less than 6 Hours Per Day (ICD-10-PCS; principal; 2023-07-04)
PROC: 8E0ZXY6 Isolation (ICD-10-PCS; 2023-07-04)
DX: U07.1 COVID-19 (principal); I50.23 Acute on chronic systolic (congestive) heart failure; J96.01 Acute respiratory failure with hypoxia; N18.6 End stage renal disease; N17.0 Acute kidney failure with tubular necrosis; E87.1 Hypo-osmolality and hyponatremia; I13.2 Hypertensive heart and chronic kidney disease with heart failure and with stage 5 chronic kidney disease, or end stage renal disease; L03.115 Cellulitis of right lower limb; M86.671 Other chronic osteomyelitis, right ankle and foot; I42.8 Other cardiomyopathies; Z68.31 Body mass index [BMI] 31.0-31.9, adult; E66.9 Obesity, unspecified; E11.22 Type 2 diabetes mellitus with diabetic chronic kidney disease; E11.65 Type 2 diabetes mellitus with hyperglycemia; Z99.2 Dependence on renal dialysis; I27.20 Pulmonary hypertension, unspecified; J44.9 Chronic obstructive pulmonary disease, unspecified; E11.69 Type 2 diabetes mellitus with other specified complication; E11.621 Type 2 diabetes mellitus with foot ulcer; L97.529 Non-pressure chronic ulcer of other part of left foot with unspecified severity; L97.519 Non-pressure chronic ulcer of other part of right foot with unspecified severity; Z79.4 Long term (current) use of insulin; E11.42 Type 2 diabetes mellitus with diabetic polyneuropathy; E78.5 Hyperlipidemia, unspecified; G47.33 Obstructive sleep apnea (adult) (pediatric); F41.9 Anxiety disorder, unspecified; F17.200 Nicotine dependence, unspecified, uncomplicated; F90.9 Attention-deficit hyperactivity disorder, unspecified type; G89.29 Other chronic pain; M54.50 Low back pain, unspecified; I08.1 Rheumatic disorders of both mitral and tricuspid valves; I25.5 Ischemic cardiomyopathy; I87.2 Venous insufficiency (chronic) (peripheral); B95.62 Methicillin resistant Staphylococcus aureus infection as the cause of diseases classified elsewhere; M19.90 Unspecified osteoarthritis, unspecified site; I25.10 Atherosclerotic heart disease of native coronary artery without angina pectoris; I95.9 Hypotension, unspecified; K21.9 Gastro-esophageal reflux disease without esophagitis; L89.619 Pressure ulcer of right heel, unspecified stage; Z91.148 Patient's other noncompliance with medication regimen for other reason; Z91.158 Patient's noncompliance with renal dialysis for other reason; Z86.14 Personal history of Methicillin resistant Staphylococcus aureus infection; Z79.899 Other long term (current) drug therapy; Z79.82 Long term (current) use of aspirin; Z88.1 Allergy status to other antibiotic agents; Z88.8 Allergy status to other drugs, medicaments and biological substances; Z95.810 Presence of automatic (implantable) cardiac defibrillator; Z87.01 Personal history of pneumonia (recurrent); I25.2 Old myocardial infarction
CPT/HCPCS: 36415; 71046; 72100; 72170; 80048; 80053; 83036; 83605; 83735; 83880; 84100; 85025; 85610; 85730; 87636; 90935; 93005; 94640; 94760; 96365; 96366; 96368; 96372; 96375; 96376; 99291

== ENCOUNTER 2023-07-20 13:48 | Inpatient (IN) | payer MEDICARE, OTHER ==
[2023-07-20] MEDS ORDERED: IPRATROPIUM-ALBUTEROL 3 ML NEB INHALATION STA (14:15)
[2023-07-20 14:58] LABS: Anisocytosis Slight; Basophils % (A) 0 %; Eosinophils % (A) 0 %; HCT 33.2 % (39.0-53.0); HGB 10.2 gm/dL (13.0-17.5); Hypochromasia Marked; Lymphocytes # (A) 0.6 k/uL (1.0-4.8); Lymphocytes % (A) 4 %; MCH 27.9 pg (25.0-35.0); MCHC 30.8 g/dL (31.0-37.0); MCV 90.4 fL (80.0-100.0); Mean Platelet Volume 8.8; Monocytes # (A) 0.7 k/uL (0-1.0); Monocytes % (A) 5 %; Neutrophils # (A) 12.1 k/uL (1.3-7.7); Neutrophils % (A) 89 %; Platelet Count 199 k/uL (150-450); RBC 3.67 m/uL (4.30-5.90); RDW 16.6 % (11.5-15.5); WBC 13.6 k/uL (3.8-10.6)
--- NOTE | 2023-07-20 14:59 | XR ---
EXAMINATION TYPE: XR chest 1V portable DATE OF EXAM: 07/20/2023 Comparison: 07/04/2023 Clinical History: 53 year-old male shortness of breath Findings: Right-sided double lumen hemodialysis catheter tips at the lower SVC. Heart moderately enlarged. Diff use interstitial opacity. Иван B lines lower lungs. Mild patchy bibasilar densities. No sizable eff usion on the frontal view. Left anterior chest wall AICD generator with right ventricular lead. Impression: Moderate cardiomegaly and interstitial changes along with Иван B lines. Correlate for developing in terstitial pulmonary edema.
[2023-07-20] MEDS ORDERED: HYDROmorphone 0.5 MG/0.5 ML SYRINGE IVP STA (15:02)
[2023-07-20 15:10] LABS: ALT 18 U/L (4-49); AST 37 U/L (17-59); African American GFR (CKD) 46 (>60 ml/min/1.73 sqM); Alkaline Phosphatase 167 U/L (38-126); Anion Gap 13 mmol/L; Blood Urea Nitrogen 72 mg/dL (9-20); Calcium 7.9 mg/dL (8.4-10.2); Carbon Dioxide 22 mmol/L (22-30); Chloride 98 mmol/L (98-107); Glucose 124 mg/dL (74-99); Magnesium 2.1 mg/dL (1.6-2.3); Non-African American GFR(CKD) 40 (>60 ml/min/1.73 sqM); Phosphorus 3.8 mg/dL (2.5-4.5); Sodium 133 mmol/L (137-145); Total Bilirubin 0.7 mg/dL (0.2-1.3); Total Protein 6.5 g/dL (6.3-8.2)
[2023-07-20 15:17] LABS: NT-Pro-B-Type Natriuretic Pept 10200 pg/mL
[2023-07-20 15:26] LABS: INR 1.3 (<1.2); Partial Thromboplastin Time 25.3 sec (22.0-30.0); Prothrombin Time 13.3 sec (10.0-12.5)
[2023-07-20 15:34] LABS: Potassium 5.4 mmol/L (3.5-5.1)
--- NOTE | 2023-07-20 15:34 | ED ---
SOB HPI - General Chief Complaint: Shortness of Breath Stated Complaint: SOB Time Seen by Provider: 07/20/23 13:50 Source: patient, EMS Mode of arrival: EMS Limitations: no limitations - History of Present Illness Initial Comments: 53-year-old male with past medical history of end-stage renal disease on hemodialysis Saturday, and Saturday, congestive heart failure, COPD who presents to the emergency department with shortness of breath. He states that he did not go to his dialysis session on Saturday or because he didn't have a ride. He went to dialysis today. It during the treatment he became short of breath. He only received about an hour of treatment. Due to his increased worker breathing they stopped and had the patient transferred over. He does have history of COPD and uses her breathing treatment this morning. Also has the congestive heart failure. Patient has significant swelling to his lower extremities and even abdomen. He denies any chest pain. No fevers. No other alleviating, precipitating or modifying factors - Related Data Home Medications Medication Instructions Recorded Confirmed Albuterol Inhaler [Ventolin Hfa 2 puff INHALATION RT-QID PRN 07/06/22 07/20/23 Inhaler] SILVER sulfADIAZINE CREAM 1 applic TOPICAL BID@0800,1700 06/04/23 07/20/23 [Silvadene Cream] Aspirin 81 mg PO DAILY 07/04/23 07/20/23 Famotidine [Pepcid] 20 mg PO DAILY 07/04/23 07/20/23 Heparin Sodium,Porcine (1 ml) 5,000 unit SQ TID@0700,1500,2300 07/04/23 07/20/23 [Heparin Sodium] Insulin Glargine,Hum.rec.anlog 28 units SQ HS 07/04/23 07/20/23 [Toujeo Solostar] Metoprolol Tartrate [Lopressor] 25 mg PO BID 07/04/23 07/20/23 Midodrine HCl [ProAmatine] 10 mg PO TID@0730,1100,1600 07/04/23 07/20/23 Multivitamins, Thera [Multivitamin 1 tab PO DAILY 07/04/23 07/20/23 (formulary)] QUEtiapine [SEROquel] 12.5 mg PO BID 07/04/23 07/20/23 QUEtiapine [SEROquel] 12.5 mg PO BID PRN 07/04/23 07/20/23 Torsemide [Soaanz] 40 mg PO SUMOWEFR@0700 07/04/23 07/20/23 Torsemide [Soaanz] 40 mg PO TUTHSA@1000 07/04/23 07/20/23 INSULIN ASPART (NovoLOG) [NovoLOG See Protocol SQ ACHS 07/20/23 07/20/23 (formulary)] Previous Rx's Medication Instructions Recorded Acetaminophen Tab [Tylenol] 650 mg PO Q6HR PRN tab 07/02/23 DULoxetine HCL [Cymbalta] 30 mg PO DAILY cap 07/02/23 Folic Acid 1 mg PO DAILY tab 07/02/23 Ipratropium-Albuterol Nebulize 3 ml INHALATION RT-QID each 07/02/23 [Duoneb 0.5 mg-3 mg/3 ml Soln] Lactulose [Cephulac] 20 gm PO DAILY PRN ml 07/02/23 OLANZapine [ZyPREXA] 5 mg PO TID PRN tab 07/02/23 Thiamine [Vitamin B-1] 100 mg PO DAILY #30 tablet 07/02/23 fluPHENAZine [Prolixin] 3 mg PO HS tab 07/02/23 traZODone HCL [Desyrel] 50 mg PO HS PRN tab 07/02/23 Ascorbic Acid [Vitamin C] 1,000 mg PO DAILY tab 07/09/23 Cefepime [Maxipime] 2 gm IVPB Q48H #10 each 07/09/23 DAPTOmycin [Cubicin] 500 mg IVPB Q48H #10 each 07/09/23 HYDROcodone/APAP 5-325MG [[place] 1 tab PO Q6HR PRN #4 tab 07/09/23 5-325] INSULIN ASPART (NovoLOG) [NovoLOG 5 unit SQ AC-TID each 07/09/23 (formulary)] Midodrine [ProAmatine] 5 - 10 mg PO PER PROTOCOL PRN tab 07/09/23 Zinc Sulfate [Orazinc] 220 mg PO DAILY 14 Days #14 cap 07/09/23 metroNIDAZOLE [Flagyl] 500 mg PO TID@0700,1500,2300 10 07/09/23 Days #30 capsule Allergies Allergy/AdvReac Type Severity Reaction Status Date / Time azithromycin Allergy Anaphylaxis Verified 07/20/23 16:57 gemfibrozil [From Lopid] Allergy Rash/Hives Verified 07/20/23 16:57 Review of Systems ROS Statement: Those systems with pertinent positive or pertinent negative responses have been documented in the HPI. ROS Other: All systems not noted in ROS Statement are negative. Past Medical History Past Medical History: Asthma, Coronary Artery Disease (CAD), Chest Pain / Angina, Heart Failure, COPD, Diabetes Mellitus, GERD/Reflux, Hyperlipidemia, Hypertension, Myocardial Infarction ([place]), Pneumonia, Sleep Apnea/CPAP/BIPAP, Supraventricular Tachycardia (SVT) Additional Past Medical History / Comment(s): Ischemic cardiomyopathy, chronic CHF, SVT, IDDM type II, KAMINI with CPAP occasionally used, chronic cervical/back pain, DJD, diabetic foot wounds x 4 months. Last Myocardial Infarction Date:: 12/11/17 History of Any Multi-Drug Resistant Organisms: MRSA Date of last positivie culture/infection: 06/15/23 MDRO Source:: Right Foot Past Surgical History: Adenoidectomy, AICD, Back Surgery, Cholecystectomy, EPS, Heart Catheterization, Pacemaker, Tonsillectomy Additional Past Surgical History / Comment(s): 12/10/17 cardiac cath, previous cardiac cath, 09/02/14 AICD/pacer, EGD/colonoscopy, low back surgery with fusion. Past Anesthesia/Blood Transfusion Reactions: Motion Sickness Additional Past Anesthesia/Blood Transfusion Reaction / Comment(s): Pt states he received blood with back surgery without reaction. Type of Cardiac Device: Permanent Pacemaker, AICD Device Placement Date:: 09-02-14 Past Psychological History: ADD/ADHD, Anxiety Smoking Status: Current every day smoker Past Alcohol Use History: Occasional Past Drug Use History: Marijuana - Past Family History Father Additional Family Medical History / Comment(s): Pt has not kept in close contact with his father for many yrs. Father was an alcoholic and pt believes he has from cirrhosis of the liver. Mother History Unknown: Yes Additional Family Medical History / Comment(s): Pt is not in contact with his mother or his father who he has heard had . General Exam Limitations: no limitations General appearance: alert, anxious Head exam: Present: atraumatic, normocephalic, normal inspection Eye exam: Present: normal appearance, PERRL, EOMI. Absent: scleral icterus, conjunctival injection, periorbital swelling ENT exam: Present: mucous membranes dry Respiratory exam: Present: wheezes, rales, accessory muscle use, decreased breath sounds Cardiovascular Exam: Present: regular rate, tachycardia Extremities exam: Present: pedal edema Neurological exam: Present: alert Psychiatric exam: Present: anxious Course Vital Signs 07/20/23 07/20/23 07/20/23 13:50 14:29 14:31 Temperature 98.2 F Pulse Rate 117 H 113 H Pulse Rate [ 110 H Dorsalis Pedis] Respiratory 36 H 28 H Rate Blood Pressure 117/83 O2 Sat by Pulse 98 Oximetry Fraction of 30 Inspired Oxygen (FIO2) 07/20/23 07/20/23 07/20/23 14:40 15:00 16:00 Temperature Pulse Rate 114 H 29 L 110 H Pulse Rate [ Dorsalis Pedis] Respiratory 113 H 28 H Rate Blood Pressure 98/68 O2 Sat by Pulse 100 98 Oximetry Fraction of Inspired Oxygen (FIO2) 07/20/23 07/20/23 07/20/23 20:09 20:17 21:00 Temperature Pulse Rate 110 H 112 H 101 H Pulse Rate [ Dorsalis Pedis] Respiratory 24 Rate Blood Pressure 112/56 O2 Sat by Pulse 100 Oximetry Fraction of Inspired Oxygen (FIO2) Medical Decision Making - Medical Decision Making Was pt. sent in by a medical professional or institution (RAQUEL Hernandez, [employer], urgent care, hospital, or usp...) When possible be specific @ -Dialysis clinic Did you speak to anyone other than the patient for history (EMS, parent, family, police, friend...)? What history was obtained from this source @ -EMS Did you review nursing and triage notes (agree or disagree)? Why? @ -[I reviewed and agree with nursing and triage notes] Were old charts reviewed (outside hosp., previous admission, EMS record, old EKG, old radiological studies, urgent care reports/EKG's, usp records)? Report findings @ -[No old charts were reviewed] Differential Diagnosis (chest pain, altered mental status, abdominal pain women, abdominal pain men, vaginal bleeding, weakness, fever, dyspnea, syncope, headache, dizziness, GI bleed, back pain, seizure, CVA, palpatations, mental health, musculoskeletal)? @ -Differential Dyspnea: Coronary syndrome, arrhythmia, tamponade, asthma, COPD, pulmonary embolism, pneumonia, pneumothorax, pulmonary effusion, anaphylaxis, diabetic ketoacidosis, flailed chest, pulmonary contusion, diaphragmatic rupture, anemia, neuromuscular , this is not meant to be an all-inclusive list. EKG interpreted by me (3pts min.). @ -yes and demonstrates sinus tachycardia with a rate of 116. [place] interval 166. QRS 99. QTC 395. No acute ST segment elevation or depression X-rays interpreted by me (1pt min.). @ -yes and demonstrates congestive heart failure CT interpreted by me (1pt min.). @ -[None done] U/S interpreted by me (1pt. min.). @ -[None done] What testing was considered but not performed or refused? (CT, X-rays, U/S, labs)? Why? @ -[None] What meds were considered but not given or refused? Why? @ -[None] Did you discuss the management of the patient with other professionals (macho montes de oca i.e. , PA, [employer] C[employer]IST, lab, RT, psych nurse, social worker assistant, high school science teacher, teacher, airline pilot/first officer, rehabilitation caseworker)? Give summary @ -Spoke with Dr. Castellanos who will order the patient's dialysis. Spoke with Dr. johnson will admit the patient Was smoking cessation discussed for >3mins.? @ -[No] Was critical care preformed (if so, how long)? @ -yes, 35 minutes BiPAP management Were there social determinants of health that impacted care today? How? (Homelessness, low income, unemployed, alcoholism, drug addiction, transportation, low edu. Level, literacy, decrease access to med. care, fpc, rehab)? @ -Patient didn't have a ride to dialysis Was there de-escalation of care discussed even if they declined (Discuss DNR or withdrawal of care, Hospice)? DNR status @ -patient unsure if he wanted to be a full code but refusing to be no code at this time What co-morbidities impacted this encounter? (DM, HTN, Smoking, COPD, CAD, Cancer, CVA, ARF, Chemo, Hep., AIDS, mental health diagnosis, sleep apnea, morbid obesity)? @ -End-stage renal disease on hemodialysis Was patient admitted / discharged? Hospital course, mention meds given and route, prescriptions, significant lab abnormalities, going to OR and other pertinent info. @ -Upon arrival patient was placed into room 22. Thorough history and physical exam was performed. Patient has significant work of breathing and therefore he is placed on BiPAP. IV is established and laboratory studies are conducted. Portable chest x-ray was performed which does demonstrate fluid overload. Patient will be admitted at this time. Spoke with Dr. Castellanos who will arrange dialysis. Spoke with Dr. Johnson who will admit the patient. He remained in stable condition awaiting a bed Undiagnosed new problem with uncertain prognosis? @ -[No] Drug Therapy requiring intensive monitoring for toxicity (Heparin, Nitro, Insulin, Cardizem)? @ -[No] Were any procedures done? @ -[No] Diagnosis/symptom? @ -Acute respiratory insufficiency, BiPAP dependent respiratory failure, volume overload, end-stage renal disease on hemodialysis Acute, or Chronic, or Acute on Chronic? @ -Acute Uncomplicated (without systemic symptoms) or Complicated (systemic symptoms)? @ -Complicated Side effects of treatment? @ -[No] Exacerbation, Progression, or Severe Exacerbation? @ -Yes Poses a threat to life or bodily function? How? (Chest pain, [place], ME, pneumonia, PE, COPD, DKA, ARF, appy, cholecystitis, CVA, Diverticulitis, Homicidal, Suicidal, threat to staff... and all critical care pts) @ -Yes patient has significant work of breathing - Lab Data Result diagrams: 07/20/23 14:42 07/20/23 14:42 Lab Results 07/20/23 07/20/23 07/20/23 Range/Units 14:42 14:42 14:42 WBC 13.6 H (3.8-10.6) k/uL RBC 3.67 L (4.30-5.90) m/uL Hgb 10.2 L (13.0-17.5) gm/dL Hct 33.2 L (39.0-53.0) % MCV 90.4 (80.0-100.0) fL MCH 27.9 (25.0-35.0) pg MCHC 30.8 L (31.0-37.0) g/dL RDW 16.6 H (11.5-15.5) % Plt Count 199 (150-450) k/uL MPV 8.8 Neutrophils % 89 % Lymphocytes % 4 % Monocytes % 5 % Eosinophils % 0 % Basophils % 0 % Neutrophils # 12.1 H (1.3-7.7) k/uL Lymphocytes # 0.6 L (1.0-4.8) k/uL Monocytes # 0.7 (0-1.0) k/uL Eosinophils # 0.0 (0-0.7) k/uL Basophils # 0.0 (0-0.2) k/uL Hypochromasia Marked Anisocytosis Slight PT 13.3 H (10.0-12.5) sec INR 1.3 H (<1.2) APTT 25.3 (22.0-30.0) sec Sodium 133 L (137-145) mmol/L Potassium 5.4 H (3.5-5.1) mmol/L Chloride 98 (98-107) mmol/L Carbon Dioxide 22 (22-30) mmol/L Anion Gap 13 mmol/L BUN 72 H (9-20) mg/dL Creatinine 1.87 H (0.66-1.25) mg/dL Est GFR (CKD-EPI)AfAm 46 (>60 ml/min/1.73 sqM) Est GFR (CKD-EPI)NonAf 40 (>60 ml/min/1.73 sqM) Glucose 124 H (74-99) mg/dL Plasma Lactic Acid Shane (0.7-2.0) mmol/L Calcium 7.9 L (8.4-10.2) mg/dL Phosphorus 3.8 (2.5-4.5) mg/dL Magnesium 2.1 (1.6-2.3) mg/dL Total Bilirubin 0.7 (0.2-1.3) mg/dL AST 37 (17-59) U/L ALT 18 (4-49) U/L Alkaline Phosphatase 167 H (38-126) U/L Troponin I (0.000-0.034) ng/mL NT-Pro-B Natriuret Pep 11874 pg/mL Total Protein 6.5 (6.3-8.2) g/dL Albumin 3.0 L (3.5-5.0) g/dL 07/20/23 07/20/23 Range/Units 14:42 14:42 WBC (3.8-10.6) k/uL RBC (4.30-5.90) m/uL Hgb (13.0-17.5) gm/dL Hct (39.0-53.0) % MCV (80.0-100.0) fL MCH (25.0-35.0) pg MCHC (31.0-37.0) g/dL RDW (11.5-15.5) % Plt Count (150-450) k/uL MPV Neutrophils % % Lymphocytes % % Monocytes % % Eosinophils % % Basophils % % Neutrophils # (1.3-7.7) k/uL Lymphocytes # (1.0-4.8) k/uL Monocytes # (0-1.0) k/uL Eosinophils # (0-0.7) k/uL Basophils # (0-0.2) k/uL Hypochromasia Anisocytosis PT (10.0-12.5) sec INR (<1.2) APTT (22.0-30.0) sec Sodium (137-145) mmol/L Potassium (3.5-5.1) mmol/L Chloride (98-107) mmol/L Carbon Dioxide (22-30) mmol/L Anion Gap mmol/L BUN (9-20) mg/dL Creatinine (0.66-1.25) mg/dL Est GFR (CKD-EPI)AfAm (>60 ml/min/1.73 sqM) Est GFR (CKD-EPI)NonAf (>60 ml/min/1.73 sqM) Glucose (74-99) mg/dL Plasma Lactic Acid Shane 1.6 (0.7-2.0) mmol/L Calcium (8.4-10.2) mg/dL Phosphorus (2.5-4.5) mg/dL Magnesium (1.6-2.3) mg/dL Total Bilirubin (0.2-1.3) mg/dL AST (17-59) U/L ALT (4-49) U/L Alkaline Phosphatase (38-126) U/L Troponin I 0.023 (0.000-0.034) ng/mL NT-Pro-B Natriuret Pep pg/mL Total Protein (6.3-8.2) g/dL Albumin (3.5-5.0) g/dL Disposition Clinical Impression: COPD exacerbation, CHF exacerbation, ESRD (end stage renal disease) on dialysis Disposition: ADMITTED IP TO THIS HOSP Condition: Serious Is patient prescribed a controlled substance at d/c from ED?: No Time of Disposition: 15:49 Decision to Admit Reason: Admit from EC Decision Date: 07/20/23 Decision Time: 15:49
[2023-07-20] MEDS ORDERED: FUROSEMIDE 10 MG/ML 10 ML VIAL IV STA (15:37)
[2023-07-20] MEDS ORDERED: MIDODRINE 5 MG TAB PO STA (15:46)
[2023-07-20] MEDS ORDERED: methylPREDNISolone SOD SUCCI 125 MG/2 ML VIAL IV STA (15:47)
[2023-07-20] MEDS ORDERED: NALOXONE 0.4 MG/ML 1 ML VIAL IV PRN (15:50)
[2023-07-20] MEDS ORDERED: ALBUTEROL NEBULIZED 2.5 MG/3 ML INHALATION PRN (19:33)
[2023-07-20] MEDS ORDERED: LACTULOSE 20 GM/30 ML CUP PO PRN (19:33)
[2023-07-20] MEDS ORDERED: QUEtiapine 25 MG TAB PO PRN (19:33)
[2023-07-20] MEDS ORDERED: CEFEPIME 2 GM VIAL IVPB SCH (19:45)
[2023-07-20] MEDS ORDERED: DAPTOmycin 500 MG VIAL IVPB SCH (19:45)
[2023-07-20] MEDS ORDERED: DEXTROSE 50% SYRINGE 50 ML IVP PRN (19:54)
[2023-07-20] MEDS: IPRATROPIUM-ALBUTEROL 3 ML NEB INHALATION SCH (20:05)
[2023-07-20] MEDS: ASPIRIN 81 MG PO SCH (21:09)
[2023-07-20] MEDS: metroNIDAZOLE 500 MG TAB PO SCH (21:10)
[2023-07-20] MEDS: QUEtiapine 25 MG TAB PO SCH (21:11)
[2023-07-20] MEDS: INSULIN DETEMIR (LEVEMIR) 100 UNIT/ML SYR SQ SCH (21:11)
[2023-07-20] MEDS: METOPROLOL TARTRATE 25 MG TAB PO SCH (21:11)
[2023-07-20 21:17] LABS: Glucose,Whole Blood 57 mg/dL (70-110)
[2023-07-20] MEDS: HYDROcodone/APAP 5-325MG 1 EACH TAB PO PRN (21:45)
[2023-07-20] MEDS: DAPTOmycin 500 MG in SODIUM CHLORIDE 0.9% 50 ML IVPB SCH (21:52)
[2023-07-20] MEDS: CEFEPIME 1 GM in SODIUM CHLORIDE 0.9% 50 ML IVPB SCH (21:52)
[2023-07-20] MEDS: INSULIN ASPART (NovoLOG) 100 UNIT/ML VIAL SQ SCH (21:53)
[2023-07-20 23:12] LABS: Glucose,Whole Blood 70 mg/dL (70-110)
[2023-07-20] MEDS: HEPARIN SODIUM,PORCINE 5,000 UNIT/ML 1 ML VIAL SQ SCH (23:56)
[2023-07-21 00:34] LABS: Glucose,Whole Blood 69 mg/dL (70-110)
[2023-07-21] MEDS: ACETAMINOPHEN TAB 325 MG TAB PO PRN ×2 (01:12→21:23)
[2023-07-21] MEDS: OLANZapine 5 MG TAB PO PRN (02:09)
[2023-07-21] MEDS: MIDODRINE 5 MG TAB PO PRN (03:28)
[2023-07-21] MEDS: HYDROcodone/APAP 5-325MG 1 EACH TAB PO PRN ×4 (03:50→23:06)
[2023-07-21] MEDS: metroNIDAZOLE 500 MG TAB PO SCH ×3 (06:11→23:08)
[2023-07-21] MEDS: HEPARIN SODIUM,PORCINE 5,000 UNIT/ML 1 ML VIAL SQ SCH ×3 (06:12→23:07)
[2023-07-21 06:26] LABS: Glucose,Whole Blood 125 mg/dL (70-110)
[2023-07-21] MEDS ORDERED: TORSEMIDE 20 MG TAB PO SCH (07:00)
[2023-07-21] MEDS: INSULIN ASPART (NovoLOG) 100 UNIT/ML VIAL SQ SCH ×7 (07:14→21:12)
[2023-07-21] MEDS: IPRATROPIUM-ALBUTEROL 3 ML NEB INHALATION SCH ×3 (07:51→20:42)
[2023-07-21 08:31] LABS: Anisocytosis Slight; Basophils % (A) 0 %; Eosinophils % (A) 0 %; HCT 35.5 % (39.0-53.0); HGB 10.8 gm/dL (13.0-17.5); Hypochromasia Marked; Lymphocytes # (A) 0.4 k/uL (1.0-4.8); Lymphocytes % (A) 5 %; MCH 27.8 pg (25.0-35.0); MCHC 30.4 g/dL (31.0-37.0); MCV 91.2 fL (80.0-100.0); Mean Platelet Volume 8.8; Monocytes # (A) 0.1 k/uL (0-1.0); Monocytes % (A) 2 %; Neutrophils # (A) 6.3 k/uL (1.3-7.7); Neutrophils % (A) 92 %; Platelet Count 193 k/uL (150-450); RBC 3.89 m/uL (4.30-5.90); RDW 16.5 % (11.5-15.5); WBC 6.9 k/uL (3.8-10.6)
[2023-07-21 08:32] LABS: Glucose,Whole Blood 102 mg/dL (70-110)
[2023-07-21] MEDS: ASPIRIN 81 MG PO SCH (08:36)
[2023-07-21] MEDS: FAMOTIDINE 20 MG TAB PO SCH (08:36)
[2023-07-21] MEDS: DULoxetine HCL 30 MG CAPSULE.DR PO SCH (08:36)
[2023-07-21] MEDS: FOLIC ACID 1 MG TAB PO SCH (08:36)
[2023-07-21] MEDS: MIDODRINE 5 MG TAB PO SCH ×3 (08:36→17:05)
[2023-07-21] MEDS: METOPROLOL TARTRATE 25 MG TAB PO SCH ×2 (08:37→21:13)
[2023-07-21] MEDS: THIAMINE 100 MG TAB PO SCH (08:37)
[2023-07-21] MEDS: ZINC SULFATE 220 MG CAP PO SCH (08:37)
[2023-07-21] MEDS: QUEtiapine 25 MG TAB PO SCH ×2 (08:38→21:13)
[2023-07-21] MEDS: MULTIVITAMINS, THERA 1 EACH TAB PO SCH (08:39)
[2023-07-21] MEDS: ASCORBIC ACID 500 MG TAB PO SCH (08:39)
[2023-07-21 10:52] LABS: African American GFR (CKD) 39 (>60 ml/min/1.73 sqM); Anion Gap 13 mmol/L; Blood Urea Nitrogen 66 mg/dL (9-20); Calcium 8.3 mg/dL (8.4-10.2); Carbon Dioxide 24 mmol/L (22-30); Chloride 96 mmol/L (98-107); Glucose 107 mg/dL (74-99); Non-African American GFR(CKD) 34 (>60 ml/min/1.73 sqM); Potassium 5.7 mmol/L (3.5-5.1); Sodium 133 mmol/L (137-145)
--- NOTE | 2023-07-21 11:25 | P.NPCON ---
History of Present Illness - Reason for Consult end stage renal disease - History of Present Illness Patient is a 53-year-old male with history of chronic kidney disease recently started on hemodialysis on 06/22/2023 due to worsening volume status and renal function. Patient missed last 2 treatments as outpatient. He is admitted to the hospital with increased shortness of breath and leg swelling. Chest x-ray shows bilateral interstitial pulmonary edema. Patient continues to have significant urine output and is maintained on loop diuretics. He was dialyzed last night and had about 2 L of ultrafiltration. Currently off of BiPAP. Review of Systems As per HPI Past Medical History Past Medical History: Asthma, Coronary Artery Disease (CAD), Chest Pain / Angina, Heart Failure, COPD, Diabetes Mellitus, GERD/Reflux, Hyperlipidemia, Hypertension, Myocardial Infarction ([place]), Pneumonia, Sleep Apnea/CPAP/BIPAP, Supraventricular Tachycardia (SVT) Additional Past Medical History / Comment(s): Ischemic cardiomyopathy, chronic CHF, SVT, IDDM type II, KAMINI with CPAP occasionally used, chronic cervical/back pain, DJD, diabetic foot wounds x 4 months. Last Myocardial Infarction Date:: 12/11/17 History of Any Multi-Drug Resistant Organisms: MRSA Date of last positivie culture/infection: 06/15/23 MDRO Source:: Right Foot Past Surgical History: Adenoidectomy, AICD, Back Surgery, Cholecystectomy, EPS, Heart Catheterization, Pacemaker, Tonsillectomy Additional Past Surgical History / Comment(s): 12/10/17 cardiac cath, previous cardiac cath, 09/02/14 AICD/pacer, EGD/colonoscopy, low back surgery with fusion. Past Anesthesia/Blood Transfusion Reactions: Motion Sickness Additional Past Anesthesia/Blood Transfusion Reaction / Comment(s): Pt states he received blood with back surgery without reaction. Type of Cardiac Device: Permanent Pacemaker, AICD Device Placement Date:: 09-02-14 Past Psychological History: ADD/ADHD, Anxiety Smoking Status: Current every day smoker Past Alcohol Use History: Occasional Past Drug Use History: Marijuana - Past Family History Father Additional Family Medical History / Comment(s): Pt has not kept in close contact with his father for many yrs. Father was an alcoholic and pt believes he has from cirrhosis of the liver. Mother History Unknown: Yes Additional Family Medical History / Comment(s): Pt is not in contact with his mother or his father who he has heard had . Medications and Allergies Home Medications Medication Instructions Recorded Confirmed Type Albuterol Inhaler [Ventolin Hfa 2 puff INHALATION RT-QID PRN 07/06/22 07/20/23 History Inhaler] SILVER sulfADIAZINE CREAM 1 applic TOPICAL BID@0800,1700 06/04/23 07/20/23 History [Silvadene Cream] Acetaminophen Tab [Tylenol] 650 mg PO Q6HR PRN tab 07/02/23 07/20/23 Rx DULoxetine HCL [Cymbalta] 30 mg PO DAILY cap 07/02/23 07/20/23 Rx Folic Acid 1 mg PO DAILY tab 07/02/23 07/20/23 Rx Ipratropium-Albuterol Nebulize 3 ml INHALATION RT-QID each 07/02/23 07/20/23 Rx [Duoneb 0.5 mg-3 mg/3 ml Soln] Lactulose [Cephulac] 20 gm PO DAILY PRN ml 07/02/23 07/20/23 Rx OLANZapine [ZyPREXA] 5 mg PO TID PRN tab 07/02/23 07/20/23 Rx Thiamine [Vitamin B-1] 100 mg PO DAILY #30 tablet 07/02/23 07/20/23 Rx fluPHENAZine [Prolixin] 3 mg PO HS tab 07/02/23 07/20/23 Rx traZODone HCL [Desyrel] 50 mg PO HS PRN tab 07/02/23 07/20/23 Rx Aspirin 81 mg PO DAILY 07/04/23 07/20/23 History Famotidine [Pepcid] 20 mg PO DAILY 07/04/23 07/20/23 History Heparin Sodium,Porcine (1 ml) 5,000 unit SQ TID@0700,1500,2300 07/04/23 07/20/23 History [Heparin Sodium] Insulin Glargine,Hum.rec.anlog 28 units SQ HS 07/04/23 07/20/23 History [Toujeo Solostar] Metoprolol Tartrate [Lopressor] 25 mg PO BID 07/04/23 07/20/23 History Midodrine HCl [ProAmatine] 10 mg PO TID@0730,1100,1600 07/04/23 07/20/23 History Multivitamins, Thera [Multivitamin 1 tab PO DAILY 07/04/23 07/20/23 History (formulary)] QUEtiapine [SEROquel] 12.5 mg PO BID 07/04/23 07/20/23 History QUEtiapine [SEROquel] 12.5 mg PO BID PRN 07/04/23 07/20/23 History Torsemide [Soaanz] 40 mg PO SUMOWEFR@0700 07/04/23 07/20/23 History Torsemide [Soaanz] 40 mg PO TUTHSA@1000 07/04/23 07/20/23 History Ascorbic Acid [Vitamin C] 1,000 mg PO DAILY tab 07/09/23 07/20/23 Rx Cefepime [Maxipime] 2 gm IVPB Q48H #10 each 07/09/23 07/20/23 Rx DAPTOmycin [Cubicin] 500 mg IVPB Q48H #10 each 07/09/23 07/20/23 Rx HYDROcodone/APAP 5-325MG [[place] 1 tab PO Q6HR PRN #4 tab 07/09/23 07/20/23 Rx 5-325] INSULIN ASPART (NovoLOG) [NovoLOG 5 unit SQ AC-TID each 07/09/23 07/20/23 Rx (formulary)] Midodrine [ProAmatine] 5 - 10 mg PO PER PROTOCOL PRN tab 07/09/23 07/20/23 Rx Zinc Sulfate [Orazinc] 220 mg PO DAILY 14 Days #14 cap 07/09/23 07/20/23 Rx metroNIDAZOLE [Flagyl] 500 mg PO TID@0700,1500,2300 10 07/09/23 07/20/23 Rx Days #30 capsule INSULIN ASPART (NovoLOG) [NovoLOG See Protocol SQ ACHS 07/20/23 07/20/23 History (formulary)] Allergies Allergy/AdvReac Type Severity Reaction Status Date / Time azithromycin Allergy Anaphylaxis Verified 07/20/23 16:57 gemfibrozil [From Lopid] Allergy Rash/Hives Verified 07/20/23 16:57 Physical Exam Vitals: Vital Signs Temp Pulse Pulse Resp BP Pulse Ox FiO2 07/21/23 08:41 101 H 18 101/54 95 07/21/23 08:03 100 07/21/23 07:51 100 07/21/23 06:19 101 H 19 97/65 97 07/21/23 06:00 98.2 F 102 H 20 94/59 99 07/21/23 05:45 106 H 25 H 07/21/23 04:00 103 H 20 103/39 98 07/21/23 03:20 101 H 16 85/58 100 07/21/23 02:07 105 H 24 98/79 100 07/21/23 02:00 106 H 12 07/21/23 01:52 26 H 07/21/23 01:43 103 H 25 H 81/60 100 07/20/23 21:00 101 H 24 112/56 100 07/20/23 20:17 112 H 07/20/23 20:09 110 H 07/20/23 16:00 110 H 28 H 98 07/20/23 15:00 29 L 113 H 98/68 100 07/20/23 14:40 114 H 07/20/23 14:31 113 H 28 H 07/20/23 14:29 30 07/20/23 13:50 98.2 F 117 H 110 H 36 H 117/83 98 Intake and Output 07/20/23 07/21/23 07/21/23 22:59 06:59 14:59 Other: Voiding Method External Catheter Patient is awake, comfortable, no acute distress Examination of the heart S1 and S2 Examination lungs decreased breath sounds at the bases Abdomen is obese distended with significant scrotal edema Bilateral lower extremity shows edema 3-4+, legs are wrapped Results - Lab Results Most recent lab results Calcium 8.3 mg/dL (8.4-10.2) L 07/21/23 07:43 Phosphorus 3.8 mg/dL (2.5-4.5) 07/20/23 14:42 Magnesium 2.1 mg/dL (1.6-2.3) 07/20/23 14:42 07/21/23 07:43 07/21/23 07:43 Assessment and Plan Assessment: 1. Severe volume overload, anasarca. Patient will be maintained on IV Lasix and he will be dialyzed again today 2. Hemodialysis dependent acute kidney injury with severe volume overload. Patient has been noncompliant with dialysis as outpatient. 3. Cardiomyopathy with EF of less than 20% 4. Status post recent Covid infection, earlier this month 5. CK D stage III secondary to diabetic kidney disease and cardiorenal syndrome currently with hemodialysis dependent renal failure. 6. Right lower extremity wound, patient has refused amputation previously. Plan: Repeat hemodialysis today Change Lasix to IV Patient is advised regarding compliance with hemodialysis treatments Maintain salt and fluid restriction. Thank you for the consultation. We will continue to follow the patient with you during his hospitalization.
[2023-07-21 11:46] LABS: Glucose,Whole Blood 214 mg/dL (70-110)
[2023-07-21] MEDS: FUROSEMIDE 10 MG/ML 10 ML VIAL IV SCH ×2 (12:05→21:13)
--- NOTE | 2023-07-21 12:30 | P.HPIM ---
History of Present Illness H&P Date: 07/21/23 Chief Complaint: Short of breath This is a 53-year-old patient, follows with Dr. Rodríguez. Chronic stable medical condition include CHF EF less than 20%, COPD, diabetes mellitus type 2, hypertension, hyperlipidemia, obstructive sleep apnea, anxiety, AICD, lower extremity venous insufficiency. Patient had lower extremity wounds and has been followed by ID and Dr. Lugo from vascular. in the hospital from May 14 through May 29. Patient had worsening wound after right foot. has been told multiple times to Dr. Lugo to proceed with amputation. Last admission he also was on IV Bumex drip and dobutamine drip for congestive heart failure. Was discharged home on antibiotics. Admitted from June 05 through June 10. Presented again with worsening wound. malodorous drainage. Denies fever and chills. Tired. Does not want surgery. Reluctant. And/or nystagmus and need for the same. It was explained to her that antibiotics are not helping. Patient was seen by cardiology Dr. Lugo from vascular. Patient readmitted on June 16 and on July 04. I seen the patient on June 16 admission. Patient initially agreed for amputation then declined the same. Patient discharged July 09. Patient now presents to ER with increasing shortness of breath. dialysis on Saturday and because they will have right. He did go to dialysis yesterday and for short time then sent to the ER. Significant edema. Does make urine. Some cough. No fever no chills. Eating fair. Patient was dialyzed last night in the ER. Also placed on BiPAP. Review of systems: GEN.: Tired EYES: None HEENT: None NECK: None RESPIRATORY: some shortness of breath CARDIOVASCULAR: None GASTROINTESTINAL: None GENITOURINARY: Does make urine MUSCULOSKELETAL: Joint pains LYMPHATICS: None HEMATOLOGICAL: None PSYCHIATRY: None NEUROLOGICAL: Some neuropathy Social history: Lives with his 20-year-old son. Disabled. 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 Smoking 2 packs a day for most of his life . Stop drinking heavy alcohol about 20 years ago. Has done marijuana. Physical examination: VITAL SIGNS: 98.2, 117, 36, 117/83, 98% room air upon presentation GENERAL: Up in a chair, tired EYES: Pupils equal. Conjunctiva normal. HEENT: External appearance of nose and ears normal, oral cavity grossly normal. NECK: JVD unable to assess; masses not palpable. HEART: First and second heart sounds are normal; significant edema LUNGS: Respiratory rate increased; diminished breath sounds ABDOMEN: Soft, nontender, liver spleen not palpable, no masses palpable. PSYCH: Alert and oriented x3; mood and affect anxious. NEUROLOGICAL: Cranial nerves grossly intact. No facial asymmetry DERMATOLOGICAL: Right foot wound. Details in nursing chart. INVESTIGATIONS, reviewed in the clinical context: 07/21/2023: White count 6.9 hemoglobin 10.8 platelets 193 sodium 133 potassium 5.7 BUN 6615 2.14 EKG tracing personally reviewed by me-sinus tachycardia. Some ST-T wave changes. Chest x-ray film personally reviewed by me-cardiomegaly. Some venous prominence Assessment and plan: -Acute on chronic congestive heart failure nonischemic cardiomyopathy systolic dysfunction EF less than 20%: Worsening from missed hemodialysis. IV Lasix 80 mg every 12. AICD. Fluid restriction 1500 mL. Being followed by cardiology and nephrology -Acute hypoxic respiratory failure from fluid overload/CHF. Placed on BiPAP last night in the ER. -Acute on chronic recurrent right lower leg cellulitis, infected right heel diabetic ulcer with prior history of debridement. Has been told multiple times about surgery. Wound swab for Gram stain and culture. Proteus vulgaris, Streptococcus a galactiae group B-previously IV cefepime and IV daptomycin Patient has not healed with antibiotics and debridement alone. Does need amputation as discussed previously with Dr. Lugo. Patient has been reluctant - COPD in a previous smoker Ventolin. DuoNeb. -Diabetes mellitus type 2 chronically on insulin, uncontrolled with [id number] Levemir 28 units subcu Diabetic diet. Accu-Cheks and sliding scale -Hyperlipidemia Lipitor -Chronic kidney disease stage III from diabetic nephropathy and nephrosclerosis Baseline creatinine of 1.2 on May 14. -Hemodialysis dependent acute kidney injury with severe volume on board. Patient has been noncompliant with dialysis. Follow with nephrology -Hyponatremia-mild Fluid restriction -Chronic low back pain. Patient's had pain on and off for about 10 years. Has had prior surgery. Does not remember who did the surgery. topical lidocaine patch. -Essential hypertension Lopressor -Obstructive sleep apnea sometimes uses CPAP machine -Diabetic peripheral neuropathy -Anxiety Ativan when necessary -DJD Tylenol when necessary -AICD -Lower extremity chronic venous insufficiency -Full code Discussed with patient. Follow with nephrology. Home medications resumed. Past Medical History Past Medical History: Asthma, Coronary Artery Disease (CAD), Chest Pain / Angina, Heart Failure, COPD, Diabetes Mellitus, GERD/Reflux, Hyperlipidemia, Hypertension, Myocardial Infarction (NM), Pneumonia, Sleep Apnea/CPAP/BIPAP, Supraventricular Tachycardia (SVT) Additional Past Medical History / Comment(s): Ischemic cardiomyopathy, chronic CHF, SVT, IDDM type II, KAMINI with CPAP occasionally used, chronic cervical/back pain, DJD, diabetic foot wounds x 4 months. Last Myocardial Infarction Date:: 12/11/17 History of Any Multi-Drug Resistant Organisms: MRSA Date of last positivie culture/infection: 06/15/23 MDRO Source:: Right Foot Past Surgical History: Adenoidectomy, AICD, Back Surgery, Cholecystectomy, EPS, Heart Catheterization, Pacemaker, Tonsillectomy Additional Past Surgical History / Comment(s): 12/10/17 cardiac cath, previous cardiac cath, 09/02/14 AICD/pacer, EGD/colonoscopy, low back surgery with fusion. Past Anesthesia/Blood Transfusion Reactions: Motion Sickness Additional Past Anesthesia/Blood Transfusion Reaction / Comment(s): Pt states he received blood with back surgery without reaction. Type of Cardiac Device: Permanent Pacemaker, AICD Device Placement Date:: 09-02-14 Past Psychological History: ADD/ADHD, Anxiety Smoking Status: Current every day smoker Past Alcohol Use History: Occasional Past Drug Use History: Marijuana - Past Family History Father Additional Family Medical History / Comment(s): Pt has not kept in close contact with his father for many yrs. Father was an alcoholic and pt believes he has from cirrhosis of the liver. Mother History Unknown: Yes Additional Family Medical History / Comment(s): Pt is not in contact with his mother or his father who he has heard had . Medications and Allergies Home Medications Medication Instructions Recorded Confirmed Type Albuterol Inhaler [Ventolin Hfa 2 puff INHALATION RT-QID PRN 07/06/22 07/20/23 History Inhaler] SILVER sulfADIAZINE CREAM 1 applic TOPICAL BID@0800,1700 06/04/23 07/20/23 History [Silvadene Cream] Acetaminophen Tab [Tylenol] 650 mg PO Q6HR PRN tab 07/02/23 07/20/23 Rx DULoxetine HCL [Cymbalta] 30 mg PO DAILY cap 07/02/23 07/20/23 Rx Folic Acid 1 mg PO DAILY tab 07/02/23 07/20/23 Rx Ipratropium-Albuterol Nebulize 3 ml INHALATION RT-QID each 07/02/23 07/20/23 Rx [Duoneb 0.5 mg-3 mg/3 ml Soln] Lactulose [Cephulac] 20 gm PO DAILY PRN ml 07/02/23 07/20/23 Rx OLANZapine [ZyPREXA] 5 mg PO TID PRN tab 07/02/23 07/20/23 Rx Thiamine [Vitamin B-1] 100 mg PO DAILY #30 tablet 07/02/23 07/20/23 Rx fluPHENAZine [Prolixin] 3 mg PO HS tab 07/02/23 07/20/23 Rx traZODone HCL [Desyrel] 50 mg PO HS PRN tab 07/02/23 07/20/23 Rx Aspirin 81 mg PO DAILY 07/04/23 07/20/23 History Famotidine [Pepcid] 20 mg PO DAILY 07/04/23 07/20/23 History Heparin Sodium,Porcine (1 ml) 5,000 unit SQ TID@0700,1500,2300 07/04/23 07/20/23 History [Heparin Sodium] Insulin Glargine,Hum.rec.anlog 28 units SQ HS 07/04/23 07/20/23 History [Toujeo Solostar] Metoprolol Tartrate [Lopressor] 25 mg PO BID 07/04/23 07/20/23 History Midodrine HCl [ProAmatine] 10 mg PO TID@0730,1100,1600 07/04/23 07/20/23 History Multivitamins, Thera [Multivitamin 1 tab PO DAILY 07/04/23 07/20/23 History (formulary)] QUEtiapine [SEROquel] 12.5 mg PO BID 07/04/23 07/20/23 History QUEtiapine [SEROquel] 12.5 mg PO BID PRN 07/04/23 07/20/23 History Torsemide [Soaanz] 40 mg PO SUMOWEFR@0700 07/04/23 07/20/23 History Torsemide [Soaanz] 40 mg PO TUTHSA@1000 07/04/23 07/20/23 History Ascorbic Acid [Vitamin C] 1,000 mg PO DAILY tab 07/09/23 07/20/23 Rx Cefepime [Maxipime] 2 gm IVPB Q48H #10 each 07/09/23 07/20/23 Rx DAPTOmycin [Cubicin] 500 mg IVPB Q48H #10 each 07/09/23 07/20/23 Rx HYDROcodone/APAP 5-325MG [[place] 1 tab PO Q6HR PRN #4 tab 07/09/23 07/20/23 Rx 5-325] INSULIN ASPART (NovoLOG) [NovoLOG 5 unit SQ AC-TID each 07/09/23 07/20/23 Rx (formulary)] Midodrine [ProAmatine] 5 - 10 mg PO PER PROTOCOL PRN tab 07/09/23 07/20/23 Rx Zinc Sulfate [Orazinc] 220 mg PO DAILY 14 Days #14 cap 07/09/23 07/20/23 Rx metroNIDAZOLE [Flagyl] 500 mg PO TID@0700,1500,2300 10 07/09/23 07/20/23 Rx Days #30 capsule INSULIN ASPART (NovoLOG) [NovoLOG See Protocol SQ ACHS 07/20/23 07/20/23 History (formulary)] Allergies Allergy/AdvReac Type Severity Reaction Status Date / Time azithromycin Allergy Anaphylaxis Verified 07/20/23 16:57 gemfibrozil [From Lopid] Allergy Rash/Hives Verified 07/20/23 16:57 Physical Exam Vitals: Vital Signs Temp Pulse Pulse Resp BP Pulse Ox FiO2 07/21/23 08:41 101 H 18 101/54 95 07/21/23 08:03 100 07/21/23 07:51 100 07/21/23 06:19 101 H 19 97/65 97 07/21/23 06:00 98.2 F 102 H 20 94/59 99 07/21/23 05:45 106 H 25 H 07/21/23 04:00 103 H 20 103/39 98 07/21/23 03:20 101 H 16 85/58 100 07/21/23 02:07 105 H 24 98/79 100 07/21/23 02:00 106 H 12 07/21/23 01:52 26 H 07/21/23 01:43 103 H 25 H 81/60 100 07/20/23 21:00 101 H 24 112/56 100 07/20/23 20:17 112 H 07/20/23 20:09 110 H 07/20/23 16:00 110 H 28 H 98 07/20/23 15:00 29 L 113 H 98/68 100 07/20/23 14:40 114 H 07/20/23 14:31 113 H 28 H 07/20/23 14:29 30 07/20/23 13:50 98.2 F 117 H 110 H 36 H 117/83 98 Intake and Output 07/20/23 07/21/23 07/21/23 22:59 06:59 14:59 Other: Voiding Method External Catheter Results CBC & Chem 7: 07/21/23 07:43 07/21/23 07:43 Labs: Abnormal Lab Results - Last 24 Hours (Table) 07/20/23 07/20/23 07/20/23 Range/Units 14:42 14:42 14:42 WBC 13.6 H (3.8-10.6) k/uL RBC 3.67 L (4.30-5.90) m/uL Hgb 10.2 L (13.0-17.5) gm/dL Hct 33.2 L (39.0-53.0) % MCHC 30.8 L (31.0-37.0) g/dL RDW 16.6 H (11.5-15.5) % Neutrophils # 12.1 H (1.3-7.7) k/uL Lymphocytes # 0.6 L (1.0-4.8) k/uL PT 13.3 H (10.0-12.5) sec INR 1.3 H (<1.2) Sodium 133 L (137-145) mmol/L Potassium 5.4 H (3.5-5.1) mmol/L BUN 72 H (9-20) mg/dL Creatinine 1.87 H (0.66-1.25) mg/dL Glucose 124 H (74-99) mg/dL POC Glucose (mg/dL) (70-110) mg/dL Calcium 7.9 L (8.4-10.2) mg/dL Alkaline Phosphatase 167 H (38-126) U/L Albumin 3.0 L (3.5-5.0) g/dL 07/20/23 07/21/23 07/21/23 Range/Units 21:16 00:32 06:24 WBC (3.8-10.6) k/uL RBC (4.30-5.90) m/uL Hgb (13.0-17.5) gm/dL Hct (39.0-53.0) % MCHC (31.0-37.0) g/dL RDW (11.5-15.5) % Neutrophils # (1.3-7.7) k/uL Lymphocytes # (1.0-4.8) k/uL PT (10.0-12.5) sec INR (<1.2) Sodium (137-145) mmol/L Potassium (3.5-5.1) mmol/L BUN (9-20) mg/dL Creatinine (0.66-1.25) mg/dL Glucose (74-99) mg/dL POC Glucose (mg/dL) 57 L 69 L 125 H (70-110) mg/dL Calcium (8.4-10.2) mg/dL Alkaline Phosphatase (38-126) U/L Albumin (3.5-5.0) g/dL 07/21/23 Range/Units 07:43 WBC (3.8-10.6) k/uL RBC 3.89 L (4.30-5.90) m/uL Hgb 10.8 L (13.0-17.5) gm/dL Hct 35.5 L (39.0-53.0) % MCHC 30.4 L (31.0-37.0) g/dL RDW 16.5 H (11.5-15.5) % Neutrophils # (1.3-7.7) k/uL Lymphocytes # 0.4 L (1.0-4.8) k/uL PT (10.0-12.5) sec INR (<1.2) Sodium (137-145) mmol/L Potassium (3.5-5.1) mmol/L BUN (9-20) mg/dL Creatinine (0.66-1.25) mg/dL Glucose (74-99) mg/dL POC Glucose (mg/dL) (70-110) mg/dL Calcium (8.4-10.2) mg/dL Alkaline Phosphatase (38-126) U/L Albumin (3.5-5.0) g/dL
[2023-07-21] MEDS: ALPRAZolam 0.5 MG TAB PO PRN ×2 (13:01→18:23)
[2023-07-21 19:53] LABS: Glucose,Whole Blood 257 mg/dL (70-110)
[2023-07-21] MEDS: INSULIN DETEMIR (LEVEMIR) 100 UNIT/ML SYR SQ SCH (21:12)
[2023-07-21] MEDS: CEFEPIME 1 GM in SODIUM CHLORIDE 0.9% 50 ML IVPB SCH (21:32)
[2023-07-22] MEDS: HYDROcodone/APAP 5-325MG 1 EACH TAB PO PRN ×3 (05:53→18:01)
[2023-07-22 06:02] LABS: Hepatitis B Surface AB- Quant 3.5 mIU/mL
[2023-07-22 06:31] LABS: Glucose,Whole Blood 181 mg/dL (70-110)
[2023-07-22] MEDS: HEPARIN SODIUM,PORCINE 5,000 UNIT/ML 1 ML VIAL SQ SCH ×2 (06:53→15:55)
[2023-07-22] MEDS: INSULIN ASPART (NovoLOG) 100 UNIT/ML VIAL SQ SCH ×7 (06:54→21:00)
[2023-07-22] MEDS: MIDODRINE 5 MG TAB PO SCH ×3 (06:55→15:54)
[2023-07-22] MEDS: metroNIDAZOLE 500 MG TAB PO SCH ×2 (06:55→15:54)
[2023-07-22] MEDS: MULTIVITAMINS, THERA 1 EACH TAB PO SCH (07:58)
[2023-07-22] MEDS: FAMOTIDINE 20 MG TAB PO SCH (07:58)
[2023-07-22] MEDS: METOPROLOL TARTRATE 25 MG TAB PO SCH ×2 (07:58→20:18)
[2023-07-22] MEDS: ASCORBIC ACID 500 MG TAB PO SCH (07:58)
[2023-07-22] MEDS: FOLIC ACID 1 MG TAB PO SCH (07:58)
[2023-07-22] MEDS: ASPIRIN 81 MG PO SCH (07:58)
[2023-07-22] MEDS: FUROSEMIDE 10 MG/ML 10 ML VIAL IV SCH ×2 (07:59→20:17)
[2023-07-22] MEDS: QUEtiapine 25 MG TAB PO SCH ×2 (07:59→20:17)
[2023-07-22] MEDS: DULoxetine HCL 30 MG CAPSULE.DR PO SCH (07:59)
[2023-07-22] MEDS: ZINC SULFATE 220 MG CAP PO SCH (07:59)
[2023-07-22] MEDS: THIAMINE 100 MG TAB PO SCH (07:59)
[2023-07-22] MEDS: IPRATROPIUM-ALBUTEROL 3 ML NEB INHALATION SCH ×4 (08:35→21:27)
[2023-07-22 09:36] LABS: Hepatitis B Surface Antigen Nonreactive
--- NOTE | 2023-07-22 11:18 | P.PN ---
Subjective Patient is seen for follow-up for end-stage renal disease. Status post hemodialysis yesterday with UF of 2.1 L This morning patient had significant bleeding from right heel wound after shower. No significant shortness of breath. Objective - Vital Signs Vital signs: Vital Signs Temp 97.5 F L 07/22/23 07:56 Pulse 101 H 07/22/23 08:48 Resp 18 07/22/23 08:48 BP 101/68 07/22/23 07:56 Pulse Ox 98 07/22/23 07:56 FiO2 30 07/20/23 14:29 Intake & Output 07/21/23 07/22/23 07/22/23 18:59 06:59 18:59 Intake Total 750 1040 240 Output Total 2165 200 Balance -1415 840 240 Weight 117.5 kg Intake: Oral 1040 240 Hemodialysis 750 Output: Urine 200 Hemodialysis 2165 Other: Voiding Method Toilet Toilet Bedside Commode Bedside Commode # Voids 1 # Bowel Movements 1 - Exam Patient is awake, comfortable, no acute distress Examination of the heart S1 and S2 Examination lungs decreased breath sounds at the bases Abdomen is obese distended with significant scrotal edema Bilateral lower extremity shows edema 3-4+, legs being wrapped - Labs CBC & Chem 7: 07/21/23 07:43 07/21/23 07:43 Labs: Abnormal Lab Results - Last 24 Hours (Table) 07/21/23 07/21/23 07/22/23 Range/Units 11:45 19:51 06:28 POC Glucose (mg/dL) 214 H 257 H 181 H (70-110) mg/dL Microbiology - Last 24 Hours (Table) 07/20/23 21:10 Blood Culture Gram Stain - Preliminary Blood Assessment and Plan Assessment: 1. Severe volume overload, anasarca. Patient will be maintained on IV Lasix and status post hemodialysis 2. Hemodialysis dependent acute kidney injury with severe volume overload. Patient has been noncompliant with dialysis as outpatient. 3. Cardiomyopathy with EF of less than 20% 4. Status post recent Covid infection, earlier this month 5. CK D stage III secondary to diabetic kidney disease and cardiorenal syndrome currently with hemodialysis dependent renal failure. 6. Right lower extremity wound, patient has refused amputation previously. Plan: Continue IV Lasix Hemodialysis in a.m. Salt and fluid restriction Continue with antibiotics.
[2023-07-22 11:43] LABS: Glucose,Whole Blood 232 mg/dL (70-110)
--- NOTE | 2023-07-22 14:42 | P.PN ---
Progress Note - Text Progress Note Date: 07/22/23 Chief Complaint: Short of breath This is a 53-year-old patient, follows with Dr. Rodríguez. Chronic stable medical condition include CHF EF less than 20%, COPD, diabetes mellitus type 2, hypertension, hyperlipidemia, obstructive sleep apnea, anxiety, AICD, lower extremity venous insufficiency. Patient had lower extremity wounds and has been followed by ID and Dr. Lugo from vascular. in the hospital from May 14 through May 29. Patient had worsening wound after right foot. has been told multiple times to Dr. Lugo to proceed with amputation. Last admission he also was on IV Bumex drip and dobutamine drip for congestive heart failure. Was discharged home on antibiotics. Admitted from June 05 through June 10. Presented again with worsening wound. malodorous drainage. Denies fever and chills. Tired. Does not want surgery. Reluctant. And/or nystagmus and need for the same. It was explained to her that antibiotics are not helping. Patient was seen by cardiology Dr. Lugo from vascular. Patient readmitted on June 16 and on July 04. I seen the patient on June 16 admission. Patient initially agreed for amputation then declined the same. Patient discharged July 09. Patient now presents to ER with increasing shortness of breath. . dialysis on Saturday and because they will have right. He did go to dialysis yesterday and for short time then sent to the ER. Significant edema. Does make urine. Some cough. No fever no chills. Eating fair. Patient was dialyzed last night in the ER. Also placed on BiPAP. 07/22/2023: Patient had bleeding from right heel wound. Vascular Dr. Lugo consulted. Breathing better. Chronic stable dialysis tomorrow. Eating fair Active Medications Acetaminophen (Acetaminophen Tab 325 Mg Tab) 650 mg PO Q6HR PRN PRN Reason: Mild Pain or Fever > 100.5 Last Admin: 07/21/23 21:23 Dose: 650 mg Hydrocodone Bitart/Acetaminophen (Hydrocodone/Apap 5-325mg 1 Each Tab) 1 each PO Q6HR PRN PRN Reason: Pain Last Admin: 07/22/23 12:05 Dose: 1 each Albuterol Sulfate (Albuterol Nebulized 2.5 Mg/3 Ml) 2.5 mg INHALATION RT-QID PRN PRN Reason: Shortness Of Breath Albuterol/Ipratropium (Ipratropium-Albuterol 3 Ml Neb) 3 ml INHALATION RT-QID [facility] Last Admin: 07/22/23 12:01 Dose: Not Given Alprazolam (Alprazolam 0.5 Mg Tab) 0.5 mg PO Q8HR PRN PRN Reason: Anxiety Last Admin: 07/21/23 18:23 Dose: 0.5 mg Ascorbic Acid (Ascorbic Acid 500 Mg Tab) 1,000 mg PO DAILY [facility] Last Admin: 07/22/23 07:58 Dose: 1,000 mg Aspirin (Aspirin 81 Mg) 81 mg PO DAILY [facility] Last Admin: 07/22/23 07:58 Dose: 81 mg Dextrose/Water (Dextrose 50% Syringe 50 Ml) 25 ml IVP PER PROTOCOL PRN; Protocol PRN Reason: Hypoglycemia Dextrose/Water (Dextrose 50% Syringe 50 Ml) 50 ml IVP PER PROTOCOL PRN; Protocol PRN Reason: Hypoglycemia Duloxetine HCl (Duloxetine Hcl 30 Mg Capsule.Dr) 30 mg PO DAILY [facility] Last Admin: 07/22/23 07:59 Dose: 30 mg Famotidine (Famotidine 20 Mg Tab) 20 mg PO DAILY [facility] Last Admin: 07/22/23 07:58 Dose: 20 mg Fluphenazine HCl (Fluphenazine 1 Mg Tab) 3 mg PO HS [facility] Last Admin: 07/21/23 22:32 Dose: 3 mg Folic Acid (Folic Acid 1 Mg Tab) 1 mg PO DAILY [facility] Last Admin: 07/22/23 07:58 Dose: 1 mg Furosemide (Furosemide 10 Mg/Ml 10 Ml Vial) 80 mg IV Q12HR [facility] Last Admin: 07/22/23 07:59 Dose: 80 mg Heparin Sodium (Porcine) (Heparin Sodium,Porcine 5,000 Unit/Ml 1 Ml Vial) 5,000 unit SQ TID@0700,1500,2300 [facility] Last Admin: 07/22/23 06:53 Dose: 5,000 unit Cefepime HCl 1 gm/ Sodium (Chloride) 50 mls @ 12.5 mls/hr IVPB HS [facility] Last Admin: 07/21/23 21:32 Dose: 12.5 mls/hr Daptomycin 500 mg/ Sodium (Chloride) 50 mls @ 100 mls/hr IVPB Q48H [facility] Last Admin: 07/20/23 21:52 Dose: 100 mls/hr Insulin Aspart (Insulin Aspart (Novolog) 100 Unit/Ml Vial) 5 unit SQ AC-TID [facility] Last Admin: 07/22/23 12:06 Dose: 5 unit Insulin Aspart (Insulin Aspart (Novolog) 100 Unit/Ml Vial) 0 unit SQ ACHS [facility]; Protocol Last Admin: 07/22/23 12:06 Dose: 6 unit Insulin Detemir (Insulin Detemir (Levemir) 100 Unit/Ml Syr) 28 unit SQ HS [facility] Last Admin: 07/21/23 21:12 Dose: 28 unit Lactulose (Lactulose 20 Gm/30 Ml Cup) 20 gm PO DAILY PRN PRN Reason: Constipation Metoprolol Tartrate (Metoprolol Tartrate 25 Mg Tab) 25 mg PO BID [facility] Last Admin: 07/22/23 07:58 Dose: 25 mg Metronidazole (Metronidazole 500 Mg Tab) 500 mg PO TID@0700,1500,2300 [facility]; Protocol Last Admin: 07/22/23 06:55 Dose: 500 mg Midodrine (Midodrine 5 Mg Tab) 10 mg PO TID@0730,1100,1600 [facility] Last Admin: 07/22/23 12:05 Dose: 10 mg Midodrine (Midodrine 5 Mg Tab) 10 mg PO DAILY PRN PRN Reason: Blood Pressure - Low Last Admin: 07/21/23 03:28 Dose: 10 mg Multivitamins (Multivitamins, Thera 1 Each Tab) 1 each PO DAILY [facility] Last Admin: 07/22/23 07:58 Dose: 1 each Naloxone HCl (Naloxone 0.4 Mg/Ml 1 Ml Vial) 0.2 mg IV Q2M PRN PRN Reason: Opioid Reversal Olanzapine (Olanzapine 5 Mg Tab) 5 mg PO TID PRN PRN Reason: Agitation Last Admin: 07/21/23 02:09 Dose: 5 mg Quetiapine Fumarate (Quetiapine 25 Mg Tab) 12.5 mg PO BID PRN PRN Reason: Agitation Quetiapine Fumarate (Quetiapine 25 Mg Tab) 12.5 mg PO BID [facility] Last Admin: 07/22/23 07:59 Dose: 12.5 mg Silver Sulfadiazine (Silver Sulfadiazine 1% Cream 25 Gm Tube) 1 applic TOPICAL BID@0800,1700 [facility]; Protocol Last Admin: 07/22/23 07:59 Dose: 1 applic Thiamine HCl (Thiamine 100 Mg Tab) 100 mg PO DAILY [facility] Last Admin: 07/22/23 07:59 Dose: 100 mg Trazodone HCl (Trazodone Hcl 50 Mg Tab) 50 mg PO HS PRN PRN Reason: Insomnia Zinc Sulfate (Zinc Sulfate 220 Mg Cap) 220 mg PO DAILY [facility] Last Admin: 07/22/23 07:59 Dose: 220 mg Social history: Lives with his 20-year-old son. Disabled. 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 Smoking 2 packs a day for most of his life . Stop drinking heavy alcohol about 20 years ago. Has done marijuana. Physical examination: VITAL SIGNS: 97, 18, 97/63, 97% room air GENERAL: A reclining comfortable EYES: Pupils equal. Conjunctiva normal. HEENT: External appearance of nose and ears normal, oral cavity grossly normal. NECK: JVD unable to assess; masses not palpable. HEART: First and second heart sounds are normal; significant edema LUNGS: Respiratory rate increased; diminished breath sounds ABDOMEN: Soft, nontender, liver spleen not palpable, no masses palpable. PSYCH: Alert and oriented x3; mood and affect anxious. NEUROLOGICAL: Cranial nerves grossly intact. No facial asymmetry DERMATOLOGICAL: Right foot wound. Details in nursing chart. INVESTIGATIONS, reviewed in the clinical context: 07/21/2023: White count 6.9 hemoglobin 10.8 platelets 193 sodium 133 potassium 5.7 BUN 6615 2.14 EKG tracing personally reviewed by me-sinus tachycardia. Some ST-T wave changes. Chest x-ray film personally reviewed by me-cardiomegaly. Some venous prominence Assessment and plan: -Acute on chronic congestive heart failure nonischemic cardiomyopathy systolic dysfunction EF less than 20%: Worsening from missed hemodialysis.: Slow to respond IV Lasix 80 mg every 12. AICD. Fluid restriction 1500 mL. Being followed by cardiology and nephrology -Acute hypoxic respiratory failure from fluid overload/CHF. Placed on BiPAP last night in the ER. -Acute on chronic recurrent right lower leg cellulitis, infected right heel diabetic ulcer with prior history of debridement. Has been told multiple times about surgery. Wound swab for Gram stain and culture. Proteus vulgaris, Streptococcus agalactiae group B-previously IV cefepime and IV daptomycin Patient has not healed with antibiotics and debridement alone. Does need amputation as discussed previously with Dr. Lugo. Patient has been reluctant - COPD in a previous smoker Ventjad. DuoNeb. -Diabetes mellitus type 2 chronically on insulin, uncontrolled with [id number] Levemir 28 units subcu Diabetic diet. Accu-Cheks and sliding scale -Hyperlipidemia Lipitor -Chronic kidney disease stage III from diabetic nephropathy and nephrosclerosis Baseline creatinine of 1.2 on May 14. -Hemodialysis dependent acute kidney injury with severe volume on board. Patient has been noncompliant with dialysis. Follow with nephrology -Hyponatremia-mild Fluid restriction -Chronic low back pain. Patient's had pain on and off for about 10 years. Has had prior surgery. Does not remember who did the surgery. topical lidocaine patch. -Essential hypertension Lopressor -Obstructive sleep apnea sometimes uses CPAP machine -Diabetic peripheral neuropathy -Anxiety Ativan when necessary -DJD Tylenol when necessary -AICD -Lower extremity chronic venous insufficiency -Full code Dialysis as per nephrology. Right heel wound bleeding. Dr. Lugo from vascular consulted.
[2023-07-22 16:46] LABS: Glucose,Whole Blood 107 mg/dL (70-110)
[2023-07-22] MEDS: ACETAMINOPHEN TAB 325 MG TAB PO PRN (20:16)
[2023-07-22] MEDS: DAPTOmycin 500 MG in SODIUM CHLORIDE 0.9% 50 ML IVPB SCH (20:16)
[2023-07-22 20:25] LABS: Glucose,Whole Blood 132 mg/dL (70-110)
[2023-07-22] MEDS: CEFEPIME 1 GM in SODIUM CHLORIDE 0.9% 50 ML IVPB SCH (21:00)
[2023-07-22] MEDS: INSULIN DETEMIR (LEVEMIR) 100 UNIT/ML SYR SQ SCH (21:00)
[2023-07-22] MEDS: HYDROmorphone 0.5 MG/0.5 ML SYRINGE IVP PRN (21:51)
[2023-07-22] MEDS: ALPRAZolam 0.5 MG TAB PO PRN (22:37)
[2023-07-23] MEDS: metroNIDAZOLE 500 MG TAB PO SCH ×4 (01:18→23:36)
[2023-07-23] MEDS: HEPARIN SODIUM,PORCINE 5,000 UNIT/ML 1 ML VIAL SQ SCH ×4 (01:18→23:36)
[2023-07-23] MEDS: HYDROmorphone 0.5 MG/0.5 ML SYRINGE IVP PRN ×3 (05:02→17:07)
[2023-07-23 06:18] LABS: Glucose,Whole Blood 131 mg/dL (70-110)
--- NOTE | 2023-07-23 06:34 | P.CONS ---
History of Present Illness - Reason for Consult Consult date: 07/22/23 - History of Present Illness Patient is a 53-year-old male with a past medical history significant for coronary artery disease COPD diabetes mellitus hypertension hyperlipidemia [place] sleep apnea end-stage renal disease on dialysis patient did have a chronic nonhealing wound to the right heel area with underlying osteomyelitis for the patient did have a multiple admission to this facility he was last discharge fro m here on 07/09/2023 with advised to continue with the daptomycin cefepime Flagyl for his right heel osteomyelitis culture positive for MRSA Proteus streps f Providencia and anaerobes, patient has no presenting to the hospital on 07/20/2023 for evaluation of increasing shortness of breath apparently the patient did not go to his dialysis on Tuesdays and because he did not have a right he did went to dialysis on the day of presentation to the hospital however the patient was extremely short of breath for the patient was transferred to [facility] ER patient denies having any fever or any chills no chest pain or cough no nausea no vomiting no abdominal pain or any diarrhea patient continued to have nonhealing wound to the right heel area with a dressing change this morning by the nursing staff mentioned he did have significant bleeding and they were having hard time to stop the bleeding but no purulent drainage has been reported patient also have a blood culture drawn whi ch are growing gram-positive cocci that has prompted this infectious disease consultation Past Medical History Past Medical History: Asthma, Coronary Artery Disease (CAD), Chest Pain / Angina, Heart Failure, COPD, Diabetes Mellitus, GERD/Reflux, Hyperlipidemia, Hypertension, Myocardial Infarction ([place]), Pneumonia, Sleep Apnea/CPAP/BIPAP, Supraventricular Tachycardia (SVT) Additional Past Medical History / Comment(s): Ischemic cardiomyopathy, chronic CHF, SVT, IDDM type II, KAMINI with CPAP occasionally used, chronic cervical/back pain, DJD, diabetic foot wounds x 4 months. Last Myocardial Infarction Date:: 12/11/17 History of Any Multi-Drug Resistant Organisms: MRSA Year Discovered:: 06/15/23 MDRO Source:: Right Foot Past Surgical History: Adenoidectomy, AICD, Back Surgery, Cholecystectomy, EPS, Heart Catheterization, Pacemaker, Tonsillectomy Additional Past Surgical History / Comment(s): 12/10/17 cardiac cath, previous cardiac cath, 09/02/14 AICD/pacer, EGD/colonoscopy, low back surgery with fusion. Past Anesthesia/Blood Transfusion Reactions: Motion Sickness Additional Past Anesthesia/Blood Transfusion Reaction / Comm: Pt states he received blood with back surgery without reaction. Type of Cardiac Device: Permanent Pacemaker, AICD Device Placement Date:: 09-02-14 Past Psychological History: ADD/ADHD, Anxiety Smoking Status: Current every day smoker Past Alcohol Use History: Occasional Past Drug Use History: Marijuana - Past Family History Father Additional Family Medical History / Comment(s): Pt has not kept in close contact with his father for many yrs. Father was an alcoholic and pt believes he has from cirrhosis of the liver. Mother History Unknown: Yes Additional Family Medical History / Comment(s): Pt is not in contact with his mother or his father who he has heard had . Medications and Allergies Home Medications Medication Instructions Recorded Confirmed Type Albuterol Inhaler [Ventolin Hfa 2 puff INHALATION RT-QID PRN 07/06/22 07/20/23 History Inhaler] SILVER sulfADIAZINE CREAM 1 applic TOPICAL BID@0800,1700 06/04/23 07/20/23 History [Silvadene Cream] Acetaminophen Tab [Tylenol] 650 mg PO Q6HR PRN tab 07/02/23 07/20/23 Rx DULoxetine HCL [Cymbalta] 30 mg PO DAILY cap 07/02/23 07/20/23 Rx Folic Acid 1 mg PO DAILY tab 07/02/23 07/20/23 Rx Ipratropium-Albuterol Nebulize 3 ml INHALATION RT-QID each 07/02/23 07/20/23 Rx [Duoneb 0.5 mg-3 mg/3 ml Soln] Lactulose [Cephulac] 20 gm PO DAILY PRN ml 07/02/23 07/20/23 Rx OLANZapine [ZyPREXA] 5 mg PO TID PRN tab 07/02/23 07/20/23 Rx Thiamine [Vitamin B-1] 100 mg PO DAILY #30 tablet 07/02/23 07/20/23 Rx fluPHENAZine [Prolixin] 3 mg PO HS tab 07/02/23 07/20/23 Rx traZODone HCL [Desyrel] 50 mg PO HS PRN tab 07/02/23 07/20/23 Rx Aspirin 81 mg PO DAILY 07/04/23 07/20/23 History Famotidine [Pepcid] 20 mg PO DAILY 07/04/23 07/20/23 History Heparin Sodium,Porcine (1 ml) 5,000 unit SQ TID@0700,1500,2300 07/04/23 07/20/23 History [Heparin Sodium] Insulin Glargine,Hum.rec.anlog 28 units SQ HS 07/04/23 07/20/23 History [Toujeo Solostar] Metoprolol Tartrate [Lopressor] 25 mg PO BID 07/04/23 07/20/23 History Midodrine HCl [ProAmatine] 10 mg PO TID@0730,1100,1600 07/04/23 07/20/23 History Multivitamins, Thera [Multivitamin 1 tab PO DAILY 07/04/23 07/20/23 History (formulary)] QUEtiapine [SEROquel] 12.5 mg PO BID 07/04/23 07/20/23 History QUEtiapine [SEROquel] 12.5 mg PO BID PRN 07/04/23 07/20/23 History Torsemide [Soaanz] 40 mg PO SUMOWEFR@0700 07/04/23 07/20/23 History Torsemide [Soaanz] 40 mg PO TUTHSA@1000 07/04/23 07/20/23 History Ascorbic Acid [Vitamin C] 1,000 mg PO DAILY tab 07/09/23 07/20/23 Rx Cefepime [Maxipime] 2 gm IVPB Q48H #10 each 07/09/23 07/20/23 Rx DAPTOmycin [Cubicin] 500 mg IVPB Q48H #10 each 07/09/23 07/20/23 Rx HYDROcodone/APAP 5-325MG [[place] 1 tab PO Q6HR PRN #4 tab 07/09/23 07/20/23 Rx 5-325] INSULIN ASPART (NovoLOG) [NovoLOG 5 unit SQ AC-TID each 07/09/23 07/20/23 Rx (formulary)] Midodrine [ProAmatine] 5 - 10 mg PO PER PROTOCOL PRN tab 07/09/23 07/20/23 Rx Zinc Sulfate [Orazinc] 220 mg PO DAILY 14 Days #14 cap 07/09/23 07/20/23 Rx metroNIDAZOLE [Flagyl] 500 mg PO TID@0700,1500,2300 10 07/09/23 07/20/23 Rx Days #30 capsule INSULIN ASPART (NovoLOG) [NovoLOG See Protocol SQ ACHS 07/20/23 07/20/23 History (formulary)] Allergies Allergy/AdvReac Type Severity Reaction Status Date / Time azithromycin Allergy Anaphylaxis Verified 07/20/23 16:57 gemfibrozil [From Lopid] Allergy Rash/Hives Verified 07/20/23 16:57 Physical Exam Vitals: Vital Signs Temp Pulse Pulse Pulse Resp BP BP 07/22/23 08:48 101 H 18 07/22/23 08:36 100 18 07/22/23 07:56 97.5 F L 100 103 H 18 101/68 07/22/23 04:00 97.4 F L 92 18 108/68 07/22/23 02:00 100 104 H 20 07/22/23 00:00 97.6 F 104 H 20 102/71 07/21/23 20:55 100 07/21/23 20:43 100 07/21/23 20:00 97.6 F 100 105 H 20 93/53 07/21/23 17:07 98.0 F 100 18 102/67 07/21/23 12:00 96 18 101/78 Pulse Ox 07/22/23 08:48 07/22/23 08:36 07/22/23 07:56 98 07/22/23 04:00 97 07/22/23 02:00 07/22/23 00:00 96 07/21/23 20:55 07/21/23 20:43 07/21/23 20:00 98 07/21/23 17:07 07/21/23 12:00 96 Intake and Output 07/21/23 07/22/23 07/22/23 22:59 06:59 14:59 Intake Total 990 800 240 Output Total 2165 200 Balance -1175 600 240 Intake: Oral 240 800 240 Hemodialysis 750 Output: Urine 200 Hemodialysis 2165 Other: Voiding Method Toilet Toilet Toilet Bedside Commode Bedside Commode Bedside Commode # Voids 1 # Bowel Movements 1 Weight 117.5 kg Results CBC & Chem 7: 07/21/23 07:43 07/21/23 07:43 Labs: Abnormal Lab Results - Last 24 Hours (Table) 07/21/23 07/21/23 07/22/23 Range/Units 11:45 19:51 06:28 POC Glucose (mg/dL) 214 H 257 H 181 H (70-110) mg/dL Microbiology - Last 24 Hours (Table) 07/20/23 21:10 Blood Culture Gram Stain - Preliminary Blood Assessment and Plan Plan: 1-patient with a positive blood culture with gram-positive cocci questionably related to his dialysis catheter versus right heel diabetic foot infection with underlying osteomyelitis found with the patient has previously grown MRSA Proteus strep and anaerobes and the patient still have nonhealing of this wound despite receiving antibiotic therapy since 05/15/2023, with a chance of healing of this wound with the medical therapy a very poor patient previously agreed for amputation but subsequently refused 2-blood cultures will be repeated from dialysis catheter and peripherally 3-vascular surgery evaluation for local wound care and evaluation for the bleeding 4-continue with the daptomycin cefepime and Flagyl 5-check inflammatory markers We will follow on clinical condition and cultures to further adjust medication if needed Thank you for this consultation we will follow the patient along with you Dictation was produced using [employer] dictation software. please excuse any grammatical, word or spelling errors. Time with Patient: Greater than 30
[2023-07-23] MEDS: INSULIN ASPART (NovoLOG) 100 UNIT/ML VIAL SQ SCH ×7 (06:41→20:38)
[2023-07-23] MEDS: HYDROcodone/APAP 5-325MG 1 EACH TAB PO PRN ×3 (06:48→20:44)
[2023-07-23] MEDS: MIDODRINE 5 MG TAB PO SCH ×3 (06:48→15:53)
[2023-07-23] MEDS: IPRATROPIUM-ALBUTEROL 3 ML NEB INHALATION SCH ×4 (07:40→20:59)
[2023-07-23] MEDS ORDERED: TORSEMIDE 20 MG TAB PO SCH (10:00)
[2023-07-23] MEDS: DULoxetine HCL 30 MG CAPSULE.DR PO SCH (10:02)
[2023-07-23] MEDS: THIAMINE 100 MG TAB PO SCH (10:02)
[2023-07-23] MEDS: FOLIC ACID 1 MG TAB PO SCH (10:02)
[2023-07-23] MEDS: ZINC SULFATE 220 MG CAP PO SCH (10:03)
[2023-07-23] MEDS: FAMOTIDINE 20 MG TAB PO SCH (10:03)
[2023-07-23] MEDS: METOPROLOL TARTRATE 25 MG TAB PO SCH ×2 (10:03→20:43)
[2023-07-23] MEDS: ASPIRIN 81 MG PO SCH (10:03)
[2023-07-23] MEDS: ASCORBIC ACID 500 MG TAB PO SCH (10:03)
[2023-07-23] MEDS: MULTIVITAMINS, THERA 1 EACH TAB PO SCH (10:03)
[2023-07-23] MEDS: FUROSEMIDE 10 MG/ML 10 ML VIAL IV SCH ×2 (10:04→20:44)
[2023-07-23] MEDS: QUEtiapine 25 MG TAB PO SCH ×2 (10:04→20:43)
--- NOTE | 2023-07-23 11:35 | P.PN ---
Subjective Patient is seen for follow-up for end-stage renal disease. Status post hemodialysis on 07/21/2023 with UF of 2.1 L Patient is seen on hemodialysis. Tolerating treatment well.. No significant shortness of breath. Objective - Vital Signs Vital signs: Vital Signs Temp 98.1 F 07/23/23 08:20 Pulse 92 07/23/23 08:20 Resp 18 07/23/23 08:20 BP 97/70 07/23/23 08:20 Pulse Ox 97 07/23/23 08:20 FiO2 30 07/20/23 14:29 Intake & Output 07/22/23 07/23/23 07/23/23 18:59 06:59 18:59 Intake Total 240 720 Output Total 0 Balance 240 720 Weight 118.4 kg Intake: Oral 240 720 Output: Urine 0 Other: Voiding Method Toilet Toilet Toilet Bedside Commode Bedside Commode Bedside Commode Urinal Urinal # Voids 1 1 # Bowel Movements 1 1 - Exam Patient is awake, comfortable, no acute distress Examination of the heart S1 and S2 Examination lungs decreased breath sounds at the bases Abdomen is obese distended with significant scrotal edema Bilateral lower extremity shows edema 3-4+, legs are wrapped - Labs CBC & Chem 7: 07/21/23 07:43 07/21/23 07:43 Labs: Abnormal Lab Results - Last 24 Hours (Table) 07/22/23 07/22/23 07/23/23 Range/Units 11:41 20:23 06:17 POC Glucose (mg/dL) 232 H 132 H 131 H (70-110) mg/dL C-Reactive Protein (<1.0) mg/dL 07/23/23 Range/Units 10:11 POC Glucose (mg/dL) (70-110) mg/dL C-Reactive Protein 3.3 H (<1.0) mg/dL Microbiology - Last 24 Hours (Table) 07/20/23 21:10 Blood Culture Gram Stain - Final Blood Blood Culture - Final Streptococcus viridans group 07/20/23 21:25 Blood Culture - Preliminary Blood Assessment and Plan Assessment: 1. Severe volume overload, anasarca. Patient will be maintained on IV Lasix and status post hemodialysis 2. Hemodialysis dependent acute kidney injury with severe volume overload. Patient has been noncompliant with dialysis as outpatient. 3. Cardiomyopathy with EF of less than 20% 4. Status post recent Covid infection, earlier this month 5. CK D stage III secondary to diabetic kidney disease and cardiorenal syndrome currently with hemodialysis dependent renal failure. 6. Right lower extremity wound with significant edema. patient has refused amputation previously. Plan: Continue IV Lasix Continue daily UF/hemodialysis for volume overload Salt and fluid restriction Continue with antibiotics.
[2023-07-23 11:57] LABS: Glucose,Whole Blood 85 mg/dL (70-110)
--- NOTE | 2023-07-23 16:29 | P.PN ---
Subjective Progress Note Date: 07/23/23 Principal diagnosis: Reason for follow-up is right heel diabetic foot ulcer and osteomyelitis, positive blood culture Patient is a 53-year-old male with a past medical history significant for coronary artery disease COPD diabetes mellitus hypertension hyperlipidemia [place] sleep apnea end-stage renal disease on dialysis patient did have a chronic nonhealing wound to the right heel area with underlying osteomyelitis for the patient did have a multiple admission to this facility, patient did have issues with noncompliance recently signed out from nursing home facility and then subsequently did not show up for his dialysis and then presented to the hospital with worsening shortness of breath On today's evaluation that is 07/23/2023, the patient remains to be afebrile the patient is breathing comfortably on room air patient denies having any chest pain shortness of breath or cough no nausea vomiting no abdominal pain or any worsening pain to the right heel. No CBC was done today's blood culture 0.5 times and CRP is 3.3 blood culture with Streptococcus viridans Objective - Vital Signs Vital signs: Vital Signs Temp 98 F 07/23/23 16:09 Pulse 93 07/23/23 16:09 Resp 16 07/23/23 16:09 BP 100/73 07/23/23 16:09 Pulse Ox 98 07/23/23 16:09 FiO2 30 07/20/23 14:29 Intake & Output 07/22/23 07/23/23 07/23/23 18:59 06:59 18:59 Intake Total 240 720 400 Output Total 0 3000 Balance 240 720 -2600 Weight 118.4 kg Intake: Oral 240 720 Hemodialysis 400 Output: Urine 0 Hemodialysis 3000 Other: Voiding Method Toilet Toilet Toilet Bedside Commode Bedside Commode Bedside Commode Urinal Urinal # Voids 1 1 # Bowel Movements 1 1 0 - Exam GENERAL DESCRIPTION: Middle-age male lying in bed in no distress RESPIRATORY SYSTEM: Unlabored breathing , decreased breath sounds at bases HEART: S1 S2 regular rate and rhythm , ABDOMEN: Soft , no tenderness EXTREMITIES: Right heel wound is currently dressed with minimal drainage on the dressing. - Labs CBC & Chem 7: 07/21/23 07:43 07/21/23 07:43 Labs: Abnormal Lab Results - Last 24 Hours (Table) 07/22/23 07/23/23 07/23/23 Range/Units 20:23 06:17 10:11 POC Glucose (mg/dL) 132 H 131 H (70-110) mg/dL C-Reactive Protein 3.3 H (<1.0) mg/dL Procalcitonin (0.02-0.09) ng/mL 07/23/23 Range/Units 10:11 POC Glucose (mg/dL) (70-110) mg/dL C-Reactive Protein (<1.0) mg/dL Procalcitonin 0.59 H (0.02-0.09) ng/mL Microbiology - Last 24 Hours (Table) 07/20/23 21:25 Blood Culture - Preliminary Blood 07/20/23 21:10 Blood Culture Gram Stain - Final Blood Blood Culture - Final Streptococcus viridans group Assessment and Plan (1) Foot osteomyelitis, right Current Visit: No Status: Acute Code(s): M86.9 - OSTEOMYELITIS, UNSPECIFIED SNOMED Code(s): 2724080859245063 (2) Non compliance with medical treatment Current Visit: Yes Status: Acute Code(s): Z91.199 - PT NONCOMPL WITH OTHER MED TRTMT AND REGIMEN D/T UNSP REASON SNOMED Code(s): 6211045 (3) Bacteremia Current Visit: Yes Status: Acute Code(s): R78.81 - BACTEREMIA SNOMED Code(s): 6681644 Plan: 1-patient with a positive blood culture with gram-positive cocci questionably related to his dialysis catheter versus right heel diabetic foot infection with underlying osteomyelitis found with the patient has previously grown MRSA Proteus strep and anaerobes and the patient still have nonhealing of this wound despite receiving antibiotic therapy since 05/15/2023, with a chance of healing of this wound with the medical therapy a very poor patient previously agreed for amputation but subsequently refused 2blood culture has been repeated from dialysis catheter and peripherally this morning results will be followed. 3await vascular surgery evaluation for wound to the right heel. 4we will continue patient on daptomycin cefepime and Flagyl keeping in mind his noncompliance and failure of medical therapy he will better benefit from right lower extremity amputation Dictation was produced using [employer] software. please excuse any grammatical, word or spelling errors. Time with Patient: Less than 30
[2023-07-23 16:49] LABS: Glucose,Whole Blood 99 mg/dL (70-110)
--- NOTE | 2023-07-23 17:37 | P.GSCN ---
History of Present Illness History of present illness: 53-year-old gentleman has history of 4 chronic wound right foot involving the heel and plantar aspect the tendo calcaneus is infected the calcaneus is exposed patient had a history from the bleeding from the wound has been admitted for further evaluation. Patient also history of chronic renal failure on dialysis patient is a very noncompliant for dialysis and he is refusing for any major surgical intervention Patient has history of diabetes, hypertension, atrial fibrillation, obesity, coronary artery disease [place] wound right heel and left lower extremities superficial we will with marked cellulitis and swelling of both lower extremity Patient was seen in his room chest few crackles the lung bases first second sound present Abdomen is protuberant no peritoneal sign patient has a marked swelling of the scrotum femorals are 1+ patient has a large wound on the right foot plantar aspect with exposed calcaneus bone patient has a marked cellulitis and redness of the lower extremity Patient has a positive blood culture under care of infectious disease today we have changed the dressing is guarded Past Medical History Past Medical History: Asthma, Coronary Artery Disease (CAD), Chest Pain / Angina, Heart Failure, COPD, Diabetes Mellitus, GERD/Reflux, Hyperlipidemia, Hypertension, Myocardial Infarction ([place]), Pneumonia, Sleep Apnea/CPAP/BIPAP, Supraventricular Tachycardia (SVT) Additional Past Medical History / Comment(s): Ischemic cardiomyopathy, chronic CHF, SVT, IDDM type II, KAMINI with CPAP occasionally used, chronic cervical/back pain, DJD, diabetic foot wounds x 4 months. Last Myocardial Infarction Date:: 12/11/17 History of Any Multi-Drug Resistant Organisms: MRSA Year Discovered:: 06/15/23 MDRO Source:: Right Foot Past Surgical History: Adenoidectomy, AICD, Back Surgery, Cholecystectomy, EPS, Heart Catheterization, Pacemaker, Tonsillectomy Additional Past Surgical History / Comment(s): 12/10/17 cardiac cath, previous cardiac cath, 09/02/14 AICD/pacer, EGD/colonoscopy, low back surgery with fusion. Past Anesthesia/Blood Transfusion Reactions: Motion Sickness Additional Past Anesthesia/Blood Transfusion Reaction / Comm: Pt states he received blood with back surgery without reaction. Type of Cardiac Device: Permanent Pacemaker, AICD Device Placement Date:: 09-02-14 Past Psychological History: ADD/ADHD, Anxiety Smoking Status: Current every day smoker Past Alcohol Use History: Occasional Past Drug Use History: Marijuana - Past Family History Father Additional Family Medical History / Comment(s): Pt has not kept in close contact with his father for many yrs. Father was an alcoholic and pt believes he has from cirrhosis of the liver. Mother History Unknown: Yes Additional Family Medical History / Comment(s): Pt is not in contact with his mother or his father who he has heard had . Medications and Allergies Home Medications Medication Instructions Recorded Confirmed Type Albuterol Inhaler [Ventolin Hfa 2 puff INHALATION RT-QID PRN 07/06/22 07/20/23 History Inhaler] SILVER sulfADIAZINE CREAM 1 applic TOPICAL BID@0800,1700 06/04/23 07/20/23 History [Silvadene Cream] Acetaminophen Tab [Tylenol] 650 mg PO Q6HR PRN tab 07/02/23 07/20/23 Rx DULoxetine HCL [Cymbalta] 30 mg PO DAILY cap 07/02/23 07/20/23 Rx Folic Acid 1 mg PO DAILY tab 07/02/23 07/20/23 Rx Ipratropium-Albuterol Nebulize 3 ml INHALATION RT-QID each 07/02/23 07/20/23 Rx [Duoneb 0.5 mg-3 mg/3 ml Soln] Lactulose [Cephulac] 20 gm PO DAILY PRN ml 07/02/23 07/20/23 Rx OLANZapine [ZyPREXA] 5 mg PO TID PRN tab 07/02/23 07/20/23 Rx Thiamine [Vitamin B-1] 100 mg PO DAILY #30 tablet 07/02/23 07/20/23 Rx fluPHENAZine [Prolixin] 3 mg PO HS tab 07/02/23 07/20/23 Rx traZODone HCL [Desyrel] 50 mg PO HS PRN tab 07/02/23 07/20/23 Rx Aspirin 81 mg PO DAILY 07/04/23 07/20/23 History Famotidine [Pepcid] 20 mg PO DAILY 07/04/23 07/20/23 History Heparin Sodium,Porcine (1 ml) 5,000 unit SQ TID@0700,1500,2300 07/04/23 07/20/23 History [Heparin Sodium] Insulin Glargine,Hum.rec.anlog 28 units SQ HS 07/04/23 07/20/23 History [Toshola Bojorquezostar] Metoprolol Tartrate [Lopressor] 25 mg PO BID 07/04/23 07/20/23 History Midodrine HCl [ProAmatine] 10 mg PO TID@0730,1100,1600 07/04/23 07/20/23 History Multivitamins, Thera [Multivitamin 1 tab PO DAILY 07/04/23 07/20/23 History (formulary)] QUEtiapine [SEROquel] 12.5 mg PO BID 07/04/23 07/20/23 History QUEtiapine [SEROquel] 12.5 mg PO BID PRN 07/04/23 07/20/23 History Torsemide [Soaanz] 40 mg PO SUMOWEFR@0700 07/04/23 07/20/23 History Torsemide [Soaanz] 40 mg PO TUTHSA@1000 07/04/23 07/20/23 History Ascorbic Acid [Vitamin C] 1,000 mg PO DAILY tab 07/09/23 07/20/23 Rx Cefepime [Maxipime] 2 gm IVPB Q48H #10 each 07/09/23 07/20/23 Rx DAPTOmycin [Cubicin] 500 mg IVPB Q48H #10 each 07/09/23 07/20/23 Rx HYDROcodone/APAP 5-325MG [[place] 1 tab PO Q6HR PRN #4 tab 07/09/23 07/20/23 Rx 5-325] INSULIN ASPART (NovoLOG) [NovoLOG 5 unit SQ AC-TID each 07/09/23 07/20/23 Rx (formulary)] Midodrine [ProAmatine] 5 - 10 mg PO PER PROTOCOL PRN tab 07/09/23 07/20/23 Rx Zinc Sulfate [Orazinc] 220 mg PO DAILY 14 Days #14 cap 07/09/23 07/20/23 Rx metroNIDAZOLE [Flagyl] 500 mg PO TID@0700,1500,2300 10 07/09/23 07/20/23 Rx Days #30 capsule INSULIN ASPART (NovoLOG) [NovoLOG See Protocol SQ ACHS 07/20/23 07/20/23 History (formulary)] Allergies Allergy/AdvReac Type Severity Reaction Status Date / Time azithromycin Allergy Anaphylaxis Verified 07/20/23 16:57 gemfibrozil [From Lopid] Allergy Rash/Hives Verified 07/20/23 16:57 Surgical - Exam Vital Signs Temp Pulse Resp BP Pulse Ox 98.2 F 117 H 36 H 117/83 98 07/20/23 13:50 07/20/23 13:50 07/20/23 13:50 07/20/23 13:50 07/20/23 13:50 Results - Labs 07/21/23 07:43 07/21/23 07:43 Abnormal Lab Results - Last 24 Hours (Table) 07/22/23 07/23/23 07/23/23 Range/Units 20:23 06:17 10:11 POC Glucose (mg/dL) 132 H 131 H (70-110) mg/dL C-Reactive Protein 3.3 H (<1.0) mg/dL Procalcitonin (0.02-0.09) ng/mL 07/23/23 Range/Units 10:11 POC Glucose (mg/dL) (70-110) mg/dL C-Reactive Protein (<1.0) mg/dL Procalcitonin 0.59 H (0.02-0.09) ng/mL Microbiology - Last 24 Hours (Table) 07/20/23 21:25 Blood Culture - Preliminary Blood 07/20/23 21:10 Blood Culture Gram Stain - Final Blood Blood Culture - Final Streptococcus viridans group
--- NOTE | 2023-07-23 19:58 | P.PN ---
Progress Note - Text Progress Note Date: 07/23/23 Chief Complaint: Short of breath This is a 53-year-old patient, follows with Dr. Rodríguez. Chronic stable medical condition include CHF EF less than 20%, COPD, diabetes mellitus type 2, hypertension, hyperlipidemia, obstructive sleep apnea, anxiety, AICD, lower extremity venous insufficiency. Patient had lower extremity wounds and has been followed by ID and Dr. Lugo from vascular. in the hospital from May 14 through May 29. Patient had worsening wound after right foot. has been told multiple times to Dr. Lugo to proceed with amputation. Last admission he also was on IV Bumex drip and dobutamine drip for congestive heart failure. Was discharged home on antibiotics. Admitted from June 05 through June 10. Presented again with worsening wound. malodorous drainage. Denies fever and chills. Tired. Does not want surgery. Reluctant. And/or nystagmus and need for the same. It was explained to her that antibiotics are not helping. Patient was seen by cardiology Dr. Lugo from vascular. Patient readmitted on June 16 and on July 04. I seen the patient on June 16 admission. Patient initially agreed for amputation then declined the same. Patient discharged July 09. Patient now presents to ER with increasing shortness of breath. Mrs. dialysis on Saturday and because they will have right. He did go to dialysis yesterday and for short time then sent to the ER. Significant edema. Does make urine. Some cough. No fever no chills. Eating fair. Patient was dialyzed last night in the ER. Also placed on BiPAP. 07/22/2023: Patient had bleeding from right heel wound. Vascular Dr. Lugo consulted. Breathing better. Chronic stable dialysis tomorrow. Eating fair 07/23/2023: Right heel in the dressing. Discussed with Dr. Lugo. Amputation would be the only option. Discussed with the patient. Is not sure again. Getting dialyzed today. Eating well Active Medications Acetaminophen (Acetaminophen Tab 325 Mg Tab) 650 mg PO Q6HR PRN PRN Reason: Mild Pain or Fever > 100.5 Last Admin: 07/22/23 20:16 Dose: 650 mg Hydrocodone Bitart/Acetaminophen (Hydrocodone/Apap 5-325mg 1 Each Tab) 1 each PO Q6HR PRN PRN Reason: Pain Last Admin: 07/23/23 12:44 Dose: 1 each Albuterol Sulfate (Albuterol Nebulized 2.5 Mg/3 Ml) 2.5 mg INHALATION RT-QID PRN PRN Reason: Shortness Of Breath Albuterol/Ipratropium (Ipratropium-Albuterol 3 Ml Neb) 3 ml INHALATION RT-QID [facility] Last Admin: 07/23/23 16:44 Dose: Not Given Alprazolam (Alprazolam 0.5 Mg Tab) 0.5 mg PO Q8HR PRN PRN Reason: Anxiety Last Admin: 07/22/23 22:37 Dose: 0.5 mg Ascorbic Acid (Ascorbic Acid 500 Mg Tab) 1,000 mg PO DAILY [facility] Last Admin: 07/23/23 10:03 Dose: 1,000 mg Aspirin (Aspirin 81 Mg) 81 mg PO DAILY [facility] Last Admin: 07/23/23 10:03 Dose: 81 mg Dextrose/Water (Dextrose 50% Syringe 50 Ml) 25 ml IVP PER PROTOCOL PRN; Protocol PRN Reason: Hypoglycemia Dextrose/Water (Dextrose 50% Syringe 50 Ml) 50 ml IVP PER PROTOCOL PRN; Protocol PRN Reason: Hypoglycemia Duloxetine HCl (Duloxetine Hcl 30 Mg Capsule.Dr) 30 mg PO DAILY [facility] Last Admin: 07/23/23 10:02 Dose: 30 mg Famotidine (Famotidine 20 Mg Tab) 20 mg PO DAILY [facility] Last Admin: 07/23/23 10:03 Dose: 20 mg Fluphenazine HCl (Fluphenazine 1 Mg Tab) 3 mg PO HS [facility] Last Admin: 07/22/23 20:17 Dose: 3 mg Folic Acid (Folic Acid 1 Mg Tab) 1 mg PO DAILY [facility] Last Admin: 07/23/23 10:02 Dose: 1 mg Furosemide (Furosemide 10 Mg/Ml 10 Ml Vial) 80 mg IV Q12HR [facility] Last Admin: 07/23/23 10:04 Dose: Not Given Heparin Sodium (Porcine) (Heparin Sodium,Porcine 5,000 Unit/Ml 1 Ml Vial) 5,000 unit SQ TID@0700,1500,2300 [facility] Last Admin: 07/23/23 15:53 Dose: 5,000 unit Hydromorphone HCl (Hydromorphone 0.5 Mg/0.5 Ml Syringe) 0.5 mg IVP Q6HR PRN PRN Reason: Pain Last Admin: 07/23/23 17:07 Dose: 0.5 mg Cefepime HCl 1 gm/ Sodium (Chloride) 50 mls @ 12.5 mls/hr IVPB [facility] Last Admin: 07/22/23 21:00 Dose: 12.5 mls/hr Daptomycin 500 mg/ Sodium (Chloride) 50 mls @ 100 mls/hr IVPB Q48H [facility] Last Admin: 07/22/23 20:16 Dose: 100 mls/hr Insulin Aspart (Insulin Aspart (Novolog) 100 Unit/Ml Vial) 5 unit SQ AC-TID [facility] Last Admin: 07/23/23 17:25 Dose: 5 unit Insulin Aspart (Insulin Aspart (Novolog) 100 Unit/Ml Vial) 0 unit SQ ACHS [facility]; Protocol Last Admin: 07/23/23 16:55 Dose: Not Given Insulin Detemir (Insulin Detemir (Levemir) 100 Unit/Ml Syr) 28 unit SQ [facility] Last Admin: 07/22/23 21:00 Dose: 28 unit Lactulose (Lactulose 20 Gm/30 Ml Cup) 20 gm PO DAILY PRN PRN Reason: Constipation Metoprolol Tartrate (Metoprolol Tartrate 25 Mg Tab) 25 mg PO BID [facility] Last Admin: 07/23/23 10:03 Dose: 25 mg Metronidazole (Metronidazole 500 Mg Tab) 500 mg PO TID@0700,1500,2300 [facility]; Protocol Last Admin: 07/23/23 15:53 Dose: 500 mg Midodrine (Midodrine 5 Mg Tab) 10 mg PO TID@0730,1100,1600 [facility] Last Admin: 07/23/23 15:53 Dose: 10 mg Midodrine (Midodrine 5 Mg Tab) 10 mg PO DAILY PRN PRN Reason: Blood Pressure - Low Last Admin: 07/21/23 03:28 Dose: 10 mg Multivitamins (Multivitamins, Thera 1 Each Tab) 1 each PO DAILY [facility] Last Admin: 07/23/23 10:03 Dose: 1 each Naloxone HCl (Naloxone 0.4 Mg/Ml 1 Ml Vial) 0.2 mg IV Q2M PRN PRN Reason: Opioid Reversal Olanzapine (Olanzapine 5 Mg Tab) 5 mg PO TID PRN PRN Reason: Agitation Last Admin: 07/21/23 02:09 Dose: 5 mg Quetiapine Fumarate (Quetiapine 25 Mg Tab) 12.5 mg PO BID PRN PRN Reason: Agitation Quetiapine Fumarate (Quetiapine 25 Mg Tab) 12.5 mg PO BID [facility] Last Admin: 07/23/23 10:04 Dose: 12.5 mg Silver Sulfadiazine (Silver Sulfadiazine 1% Cream 25 Gm Tube) 1 applic TOPICAL BID@0800,1700 [facility]; Protocol Last Admin: 07/23/23 17:26 Dose: Not Given Thiamine HCl (Thiamine 100 Mg Tab) 100 mg PO DAILY [facility] Last Admin: 07/23/23 10:02 Dose: 100 mg Trazodone HCl (Trazodone Hcl 50 Mg Tab) 50 mg PO HS PRN PRN Reason: Insomnia Zinc Sulfate (Zinc Sulfate 220 Mg Cap) 220 mg PO DAILY [facility] Last Admin: 07/23/23 10:03 Dose: 220 mg Social history: Lives with his 20-year-old son. Disabled. 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 Smoking 2 packs a day for most of his life . Stop drinking heavy alcohol about 20 years ago. Has done marijuana. Physical examination: VITAL SIGNS: 98, 93, 16, 100/73, 98% room air GENERAL: Laying in bed EYES: Pupils equal. Conjunctiva normal. HEENT: External appearance of nose and ears normal, oral cavity grossly normal. NECK: JVD unable to assess; masses not palpable. HEART: First and second heart sounds are normal; significant edema LUNGS: Respiratory rate increased; diminished breath sounds ABDOMEN: Soft, nontender, liver spleen not palpable, no masses palpable. PSYCH: Alert and oriented x3; mood and affect anxious. NEUROLOGICAL: Cranial nerves grossly intact. No facial asymmetry DERMATOLOGICAL: Right foot wound with dressing. Details in nursing chart. INVESTIGATIONS, reviewed in the clinical context: 07/21/2023: White count 6.9 hemoglobin 10.8 platelets 193 sodium 133 potassium 5.7 BUN 6615 2.14 EKG tracing personally reviewed by me-sinus tachycardia. Some ST-T wave changes. Chest x-ray film personally reviewed by me-cardiomegaly. Some venous prominence Assessment and plan: -Acute on chronic congestive heart failure nonischemic cardiomyopathy systolic dysfunction EF less than 20%: Worsening from missed hemodialysis.: Slow to respond IV Lasix 80 mg every 12. AICD. Fluid restriction 1500 mL. Being followed by cardiology and nephrology -Acute hypoxic respiratory failure from fluid overload/CHF.: Improved Placed on BiPAP last night in the ER. -Acute on chronic recurrent right lower leg cellulitis, infected right heel diabetic ulcer with prior history of debridement. Has been told multiple times about surgery. Wound swab for Gram stain and culture. Proteus vulgaris, Streptococcus agalactiae group B-previously IV cefepime and IV daptomycin Patient has not healed with antibiotics and debridement alone. Does need amputation as discussed previously with Dr. Lugo. Patient has been reluctant - COPD in a previous smoker Ventolin. DuoNeb. -Diabetes mellitus type 2 chronically on insulin, uncontrolled with [id number] Levemir 28 units subcu Diabetic diet. Accu-Cheks and sliding scale -Hyperlipidemia Lipitor -Chronic kidney disease stage III from diabetic nephropathy and nephrosclerosis Baseline creatinine of 1.2 on May 14. -Hemodialysis dependent acute kidney injury with severe volume on board. Patient has been noncompliant with dialysis. Follow with nephrology -Hyponatremia-mild Fluid restriction -Chronic low back pain. Patient's had pain on and off for about 10 years. Has had prior surgery. Does not remember who did the surgery. topical lidocaine patch. -Essential hypertension Lopressor -Obstructive sleep apnea sometimes uses CPAP machine -Diabetic peripheral neuropathy -Anxiety Ativan when necessary -DJD Tylenol when necessary -AICD -Lower extremity chronic venous insufficiency -Full code Dialysis today. Discussed with patient and Dr. Lugo. Patient again unsure about amputation.
[2023-07-23 20:17] LABS: Glucose,Whole Blood 93 mg/dL (70-110)
[2023-07-23] MEDS: CEFEPIME 1 GM in SODIUM CHLORIDE 0.9% 50 ML IVPB SCH (20:44)
[2023-07-23] MEDS: INSULIN DETEMIR (LEVEMIR) 100 UNIT/ML SYR SQ SCH (20:59)
[2023-07-23] MEDS: ACETAMINOPHEN TAB 325 MG TAB PO PRN (22:09)
[2023-07-23] MEDS: MIDODRINE 5 MG TAB PO PRN (23:36)
[2023-07-24] MEDS: HYDROmorphone 0.5 MG/0.5 ML SYRINGE IVP PRN ×4 (01:27→22:10)
[2023-07-24] MEDS: HYDROcodone/APAP 5-325MG 1 EACH TAB PO PRN ×3 (04:23→17:10)
[2023-07-24 05:43] LABS: Glucose,Whole Blood 140 mg/dL (70-110)
[2023-07-24] MEDS: INSULIN ASPART (NovoLOG) 100 UNIT/ML VIAL SQ SCH ×6 (06:13→20:23)
[2023-07-24] MEDS: MIDODRINE 5 MG TAB PO SCH ×3 (06:45→17:10)
[2023-07-24] MEDS: metroNIDAZOLE 500 MG TAB PO SCH ×3 (06:45→22:09)
[2023-07-24] MEDS: HEPARIN SODIUM,PORCINE 5,000 UNIT/ML 1 ML VIAL SQ SCH ×3 (06:45→22:10)
[2023-07-24] MEDS: METOPROLOL TARTRATE 25 MG TAB PO SCH ×2 (09:17→20:41)
[2023-07-24] MEDS: QUEtiapine 25 MG TAB PO SCH ×2 (09:17→20:41)
[2023-07-24] MEDS: THIAMINE 100 MG TAB PO SCH (09:17)
[2023-07-24] MEDS: ZINC SULFATE 220 MG CAP PO SCH (09:18)
[2023-07-24] MEDS: FAMOTIDINE 20 MG TAB PO SCH (09:18)
[2023-07-24] MEDS: ASCORBIC ACID 500 MG TAB PO SCH (09:18)
[2023-07-24] MEDS: FOLIC ACID 1 MG TAB PO SCH (09:18)
[2023-07-24] MEDS: ASPIRIN 81 MG PO SCH (09:18)
[2023-07-24] MEDS: MULTIVITAMINS, THERA 1 EACH TAB PO SCH (09:18)
[2023-07-24] MEDS: DULoxetine HCL 30 MG CAPSULE.DR PO SCH (09:18)
[2023-07-24] MEDS: IPRATROPIUM-ALBUTEROL 3 ML NEB INHALATION SCH ×4 (09:25→21:47)
--- NOTE | 2023-07-24 10:42 | P.PN ---
Subjective Patient is seen for follow-up for end-stage renal disease. Status post hemodialysis on 07/23/2023 with UF of 3.0 L No significant complaints today. Objective - Vital Signs Vital signs: Vital Signs Temp 97.6 F 07/24/23 09:17 Pulse 106 H 07/24/23 09:35 Resp 16 07/24/23 09:17 BP 96/60 07/24/23 09:35 Pulse Ox 96 07/24/23 09:17 FiO2 30 07/20/23 14:29 Intake & Output 07/23/23 07/24/23 07/24/23 18:59 06:59 18:59 Intake Total 637 480 Output Total 3000 Balance -2363 480 Weight 114.8 kg Intake: Oral 237 480 Hemodialysis 400 Output: Hemodialysis 3000 Other: Voiding Method Toilet Toilet Toilet Bedside Commode Bedside Commode Bedside Commode Urinal Urinal Urinal # Bowel Movements 0 - Exam Patient is awake, comfortable, no acute distress Examination of the heart S1 and S2 Examination lungs decreased breath sounds at the bases Abdomen is obese distended with significant scrotal edema Bilateral lower extremity shows edema 3-4+, legs are wrapped - Labs CBC & Chem 7: 07/21/23 07:43 07/21/23 07:43 Labs: Abnormal Lab Results - Last 24 Hours (Table) 07/23/23 07/23/23 07/24/23 Range/Units 10:11 10:11 05:42 POC Glucose (mg/dL) 140 H (70-110) mg/dL C-Reactive Protein 3.3 H (<1.0) mg/dL Procalcitonin 0.59 H (0.02-0.09) ng/mL Microbiology - Last 24 Hours (Table) 07/20/23 21:25 Blood Culture - Preliminary Blood 07/20/23 21:10 Blood Culture Gram Stain - Final Blood Blood Culture - Final Streptococcus viridans group Assessment and Plan Assessment: 1. Severe volume overload, anasarca. Patient will be maintained on IV Lasix and status post hemodialysis 2. Hemodialysis dependent acute kidney injury with severe volume overload. Patient has been noncompliant with dialysis as outpatient. 3. Cardiomyopathy with EF of less than 20% 4. Status post recent Covid infection, earlier this month 5. CK D stage III secondary to diabetic kidney disease and cardiorenal syndrome currently with hemodialysis dependent renal failure. 6. Right lower extremity wound with significant edema. patient has refused amputation previously. Plan: Continue IV Lasix Continue daily UF/hemodialysis for volume overload Salt and fluid restriction Continue with antibiotics.
[2023-07-24 11:25] LABS: Glucose,Whole Blood 177 mg/dL (70-110)
[2023-07-24] MEDS: FUROSEMIDE 10 MG/ML 10 ML VIAL IV SCH ×2 (12:15→20:44)
[2023-07-24] MEDS: ALPRAZolam 0.5 MG TAB PO PRN ×2 (12:44→20:39)
--- NOTE | 2023-07-24 13:21 | P.CRDCN ---
History of Present Illness History of present illness: HISTORY OF PRESENT ILLNESS: This is a 52-year-old male with a past medical history significant for nonischemic cardiomyopathy, AICD implantation, nonsustained ventricular tachycardia, hypertension, hyperlipidemia, COPD, nicotine dependence, diabetes and right-sided foot diabetic ulcer. Patient follows in the office with Dr. Abbasi. We have been asked to see the patient in consultation for preoperative clearance. Patient examined at the bedside. Patient has been evaluated by vascular surgery with recommendations for right-sided [id number] amputation. Patient has refused amputation previously however he has decided to proceed with amputation now. The patient denies any chest pain or pressure. He denies shortness of breath. He is currently receiving hemodialysis at the time of examination. * EKG reveals sinus mechanism with heart rate of 116. * Chest xray moderate cardiomegaly and interstitial changes along with Иван B lines. Correlate for developing interstitial pulmonary edema * Current home cardiac medications include torsemide 40 mg daily, Midodrine 10 mg 3 times a day, metoprolol tartrate 25 mg twice a day, aspirin 81 mg daily * Most recent echocardiogram obtained in June 2022 revealed ejection fraction less than 20%, severe pulmonary hypertension, moderate to severe mitral regurgitation, moderate tricuspid regurgitation * Cardiac catheterization history: February 2018 revealing minimal coronary artery disease REVIEW OF SYSTEMS: At the time of my exam: CONSTITUTIONAL: Denies fever or chills. HEENT: Denies blurred vision, vision changes, or eye pain. Denies hemoptysis CARDIOVASCULAR: Denies chest pain. Denies orthopnea. Denies PND. Denies palpitations RESPIRATORY: Denies shortness of breath. GASTROINTESTINAL: Denies abdominal pain. Denies nausea or vomiting. HEMATOLOGIC: Denies bleeding disorders. GENITOURINARY: Denies any blood in urine. SKIN: Denies pruitis. Denies rash. PHYSICAL EXAM: VITAL SIGNS: Reviewed. GENERAL: Well-developed in no acute distress. HEENT: Head is normocephalic. Pupils are equal, round. Sclerae anicteric. Mucous membranes of the mouth are moist. Neck supple. No JVD or thyromegaly LUNGS: Respirations even and unlabored. Lungs essentially clear to auscultation bilaterally. HEART: Regular rate and rhythm. S1 and S2 heard. Systolic murmur noted. ABDOMEN: Soft. Nondistended. Nontender. EXTREMITIES: Normal range of motion. No clubbing or cyanosis. Peripheral pulses intact. 3+ bilateral lower extremity edema. NEUROLOGIC: Awake and alert. Oriented x 3. ASSESSMENT: Right foot wound, scheduled to undergo right [id number] amputation Nonischemic cardiomyopathy History of AICD implantation Acute on chronic heart failure with reduced ejection fraction History of nonsustained ventricular tachycardia Hyperlipidemia Diabetes Chronic kidney disease on hemodialysis Nicotine dependence History of medication noncompliance Hypotension, maintained on Midodrine outpatient, unable to tolerate BALBINA/ARB PLAN: Continue current cardiac medications Continue to monitor blood pressure Hemodialysis per nephrology Patient agreedable to right AKA. Vascular following. Patient is at intermediate to high risk to undergo surgery from a cardiac standpoint. There are no absolute contraindications for patient to proceed. Further recommendations pending patient's course Nurse practitioner note has been reviewed by physician. Signing provider agrees with the documented findings, assessment, and plan of care. Past Medical History Past Medical History: Asthma, Coronary Artery Disease (CAD), Chest Pain / Angina, Heart Failure, COPD, Diabetes Mellitus, GERD/Reflux, Hyperlipidemia, Hypertension, Myocardial Infarction (GA), Pneumonia, Sleep Apnea/CPAP/BIPAP, Supraventricular Tachycardia (SVT) Additional Past Medical History / Comment(s): Ischemic cardiomyopathy, chronic CHF, SVT, IDDM type II, KAMINI with CPAP occasionally used, chronic cervical/back pain, DJD, diabetic foot wounds x 4 months. Last Myocardial Infarction Date:: 12/11/17 History of Any Multi-Drug Resistant Organisms: MRSA Date of last positivie culture/infection: 06/15/23 MDRO Source:: Right Foot Past Surgical History: Adenoidectomy, AICD, Back Surgery, Cholecystectomy, EPS, Heart Catheterization, Pacemaker, Tonsillectomy Additional Past Surgical History / Comment(s): 12/10/17 cardiac cath, previous cardiac cath, 09/02/14 AICD/pacer, EGD/colonoscopy, low back surgery with fusion. Past Anesthesia/Blood Transfusion Reactions: Motion Sickness Additional Past Anesthesia/Blood Transfusion Reaction / Comment(s): Pt states he received blood with back surgery without reaction. Type of Cardiac Device: Permanent Pacemaker, AICD Device Placement Date:: 09-02-14 Past Psychological History: ADD/ADHD, Anxiety Smoking Status: Current every day smoker Past Alcohol Use History: Occasional Past Drug Use History: Marijuana - Past Family History Father Additional Family Medical History / Comment(s): Pt has not kept in close contact with his father for many yrs. Father was an alcoholic and pt believes he has d ied from cirrhosis of the liver. Mother History Unknown: Yes Additional Family Medical History / Comment(s): Pt is not in contact with his mother or his father who he has heard had . Medications and Allergies Home Medications Medication Instructions Recorded Confirmed Type Albuterol Inhaler [Ventolin Hfa 2 puff INHALATION RT-QID PRN 07/06/22 07/20/23 History Inhaler] SILVER sulfADIAZINE CREAM 1 applic TOPICAL BID@0800,1700 06/04/23 07/20/23 History [Silvadene Cream] Acetaminophen Tab [Tylenol] 650 mg PO Q6HR PRN tab 07/02/23 07/20/23 Rx DULoxetine HCL [Cymbalta] 30 mg PO DAILY cap 07/02/23 07/20/23 Rx Folic Acid 1 mg PO DAILY tab 07/02/23 07/20/23 Rx Ipratropium-Albuterol Nebulize 3 ml INHALATION RT-QID each 07/02/23 07/20/23 Rx [Duoneb 0.5 mg-3 mg/3 ml Soln] Lactulose [Cephulac] 20 gm PO DAILY PRN ml 07/02/23 07/20/23 Rx OLANZapine [ZyPREXA] 5 mg PO TID PRN tab 07/02/23 07/20/23 Rx Thiamine [Vitamin B-1] 100 mg PO DAILY #30 tablet 07/02/23 07/20/23 Rx fluPHENAZine [Prolixin] 3 mg PO HS tab 07/02/23 07/20/23 Rx traZODone HCL [Desyrel] 50 mg PO HS PRN tab 07/02/23 07/20/23 Rx Aspirin 81 mg PO DAILY 07/04/23 07/20/23 History Famotidine [Pepcid] 20 mg PO DAILY 07/04/23 07/20/23 History Heparin Sodium,Porcine (1 ml) 5,000 unit SQ TID@0700,1500,2300 07/04/23 07/20/23 History [Heparin Sodium] Insulin Glargine,Hum.rec.anlog 28 units SQ HS 07/04/23 07/20/23 History [Toujeo Solostar] Metoprolol Tartrate [Lopressor] 25 mg PO BID 07/04/23 07/20/23 History Midodrine HCl [ProAmatine] 10 mg PO TID@0730,1100,1600 07/04/23 07/20/23 History Multivitamins, Thera [Multivitamin 1 tab PO DAILY 07/04/23 07/20/23 History (formulary)] QUEtiapine [SEROquel] 12.5 mg PO BID 07/04/23 07/20/23 History QUEtiapine [SEROquel] 12.5 mg PO BID PRN 07/04/23 07/20/23 History Torsemide [Soaanz] 40 mg PO SUMOWEFR@0700 07/04/23 07/20/23 History Torsemide [Soaanz] 40 mg PO TUTHSA@1000 07/04/23 07/20/23 History Ascorbic Acid [Vitamin C] 1,000 mg PO DAILY tab 07/09/23 07/20/23 Rx Cefepime [Maxipime] 2 gm IVPB Q48H #10 each 07/09/23 07/20/23 Rx DAPTOmycin [Cubicin] 500 mg IVPB Q48H #10 each 07/09/23 07/20/23 Rx HYDROcodone/APAP 5-325MG [[place] 1 tab PO Q6HR PRN #4 tab 07/09/23 07/20/23 Rx 5-325] INSULIN ASPART (NovoLOG) [NovoLOG 5 unit SQ AC-TID each 07/09/23 07/20/23 Rx (formulary)] Midodrine [ProAmatine] 5 - 10 mg PO PER PROTOCOL PRN tab 07/09/23 07/20/23 Rx Zinc Sulfate [Orazinc] 220 mg PO DAILY 14 Days #14 cap 07/09/23 07/20/23 Rx metroNIDAZOLE [Flagyl] 500 mg PO TID@0700,1500,2300 10 07/09/23 07/20/23 Rx Days #30 capsule INSULIN ASPART (NovoLOG) [NovoLOG See Protocol SQ ACHS 07/20/23 07/20/23 History (formulary)] Allergies Allergy/AdvReac Type Severity Reaction Status Date / Time azithromycin Allergy Anaphylaxis Verified 07/20/23 16:57 gemfibrozil [From Lopid] Allergy Rash/Hives Verified 07/20/23 16:57 Physical Exam Vitals: Vital Signs Temp Pulse Pulse Resp BP Pulse Ox 07/24/23 11:21 97.6 F 94 20 99/65 96 07/24/23 09:35 106 H 96/60 07/24/23 09:17 97.6 F 100 16 87/83 96 07/24/23 04:19 98.1 F 81 16 96/56 98 07/24/23 02:00 86 07/24/23 01:25 94/60 07/24/23 00:12 76/53 07/23/23 23:30 86 16 80/54 92 L 07/23/23 20:37 97.4 F L 104 H 16 95/63 97 07/23/23 20:00 104 H 07/23/23 16:45 103 H 07/23/23 16:09 98 F 93 16 100/73 98 Intake and Output 07/23/23 07/24/23 07/24/23 22:59 06:59 14:59 Intake Total 237 480 222 Balance 237 480 222 Intake: Oral 237 480 222 Other: Voiding Method Toilet Toilet Toilet Bedside Commode Bedside Commode Bedside Commode Urinal Urinal Urinal Weight 114.8 kg Results 07/21/23 07:43 07/21/23 07:43 Current Medications Generic Name Dose Route Start Last Admin Trade Name Freq PRN Reason Stop Dose Admin Acetaminophen 650 mg 07/20/23 19:33 07/23/23 22:09 Acetaminophen Tab 325 Mg Tab PO 650 mg Q6HR PRN Administration Mild Pain or Fever > 100.5 Hydrocodone Bitart/Acetaminophen 1 each 07/21/23 12:47 07/24/23 11:01 Hydrocodone/Apap 5-325mg 1 Each Tab PO 1 each Q6HR PRN Administration Pain Albuterol Sulfate 2.5 mg 07/20/23 19:33 Albuterol Nebulized 2.5 Mg/3 Ml INHALATION RT-QID PRN Shortness Of Breath Albuterol/Ipratropium 3 ml 07/20/23 20:00 07/24/23 12:07 Ipratropium-Albuterol 3 Ml Neb INHALATION Not Given RT-QID LAN Alprazolam 0.5 mg 07/21/23 12:49 07/24/23 12:44 Alprazolam 0.5 Mg Tab PO 0.5 mg Q8HR PRN Administration Anxiety Ascorbic Acid 1,000 mg 07/21/23 09:00 07/24/23 09:18 Ascorbic Acid 500 Mg Tab PO 1,000 mg DAILY LAN Administration Aspirin 81 mg 07/20/23 20:30 07/24/23 09:18 Aspirin 81 Mg PO 81 mg DAILY LAN Administration Dextrose/Water 25 ml 07/20/23 19:54 Dextrose 50% Syringe 50 Ml IVP PER PROTOCOL PRN Hypoglycemia Protocol Dextrose/Water 50 ml 07/20/23 19:54 Dextrose 50% Syringe 50 Ml IVP PER PROTOCOL PRN Hypoglycemia Protocol Duloxetine HCl 30 mg 07/21/23 09:00 07/24/23 09:18 Duloxetine Hcl 30 Mg Capsule.Dr PO 30 mg DAILY LAN Administration Famotidine 20 mg 07/21/23 09:00 07/24/23 09:18 Famotidine 20 Mg Tab PO 20 mg DAILY LAN Administration Fluphenazine HCl 3 mg 07/20/23 21:00 07/23/23 20:43 Fluphenazine 1 Mg Tab PO 3 mg HS LAN Administration Folic Acid 1 mg 07/21/23 09:00 07/24/23 09:18 Folic Acid 1 Mg Tab PO 1 mg DAILY LAN Administration Furosemide 80 mg 07/21/23 11:30 07/24/23 12:15 Furosemide 10 Mg/Ml 10 Ml Vial IV 80 mg Q12HR LAN Administration Heparin Sodium (Porcine) 5,000 unit 07/20/23 23:00 07/24/23 06:45 Heparin Sodium,Porcine 5,000 Unit/Ml 1 Ml Vial SQ 5,000 unit TID@0700,1500,2300 LAN Administration Hydromorphone HCl 0.5 mg 07/22/23 21:39 07/24/23 09:37 Hydromorphone 0.5 Mg/0.5 Ml Syringe IVP 0.5 mg Q6HR PRN Administration Pain Cefepime HCl 1 gm/ Sodium 50 mls @ 12.5 mls/hr 07/20/23 21:00 07/23/23 20:44 Chloride IVPB 12.5 mls/hr HS LAN Administration Daptomycin 500 mg/ Sodium 50 mls @ 100 mls/hr 07/20/23 21:00 07/22/23 20:16 Chloride IVPB 100 mls/hr Q48H LAN Administration Insulin Aspart 5 unit 07/21/23 07:30 07/24/23 12:13 Insulin Aspart (Novolog) 100 Unit/Ml Vial SQ 5 unit AC-TID LAN Administration Insulin Aspart 0 unit 07/20/23 21:00 07/24/23 12:20 Insulin Aspart (Novolog) 100 Unit/Ml Vial SQ Not Given ACHS [facility] Protocol Insulin Detemir 28 unit 07/20/23 21:00 07/23/23 20:59 Insulin Detemir (Levemir) 100 Unit/Ml Syr SQ Not Given HS [facility] Lactulose 20 gm 07/20/23 19:33 Lactulose 20 Gm/30 Ml Cup PO DAILY PRN Constipation Metoprolol Tartrate 25 mg 07/20/23 21:00 07/24/23 09:17 Metoprolol Tartrate 25 Mg Tab PO 25 mg BID LAN Administration Metronidazole 500 mg 07/20/23 23:00 07/24/23 06:45 Metronidazole 500 Mg Tab PO 500 mg TID@0700,1500,2300 LAN Administration Protocol Midodrine 10 mg 07/21/23 07:30 07/24/23 11:44 Midodrine 5 Mg Tab PO 10 mg TID@0730,1100,1600 LAN Administration Midodrine 10 mg 07/20/23 19:33 07/23/23 23:36 Midodrine 5 Mg Tab PO 10 mg DAILY PRN Administration Blood Pressure - Low Multivitamins 1 each 07/21/23 09:00 07/24/23 09:18 Multivitamins, Thera 1 Each Tab PO 1 each DAILY LAN Administration Naloxone HCl 0.2 mg 07/20/23 15:50 Naloxone 0.4 Mg/Ml 1 Ml Vial IV Q2M PRN Opioid Reversal Olanzapine 5 mg 07/20/23 19:33 07/21/23 02:09 Olanzapine 5 Mg Tab PO 5 mg TID PRN Administration Agitation Quetiapine Fumarate 12.5 mg 07/20/23 19:33 Quetiapine 25 Mg Tab PO BID PRN Agitation Quetiapine Fumarate 12.5 mg 07/20/23 21:00 07/24/23 09:17 Quetiapine 25 Mg Tab PO 12.5 mg BID LAN Administration Silver Sulfadiazine 1 applic 07/21/23 08:00 07/24/23 12:10 Silver Sulfadiazine 1% Cream 25 Gm Tube TOPICAL Not Given BID@0800,1700 [facility] Protocol Thiamine HCl 100 mg 07/21/23 09:00 07/24/23 09:17 Thiamine 100 Mg Tab PO 100 mg DAILY LAN Administration Trazodone HCl 50 mg 07/20/23 19:33 Trazodone Hcl 50 Mg Tab PO HS PRN Insomnia Zinc Sulfate 220 mg 07/21/23 09:00 07/24/23 09:18 Zinc Sulfate 220 Mg Cap PO 220 mg DAILY LAN Administration Intake and Output 07/23/23 07/24/23 07/24/23 22:59 06:59 14:59 Intake Total 237 480 222 Balance 237 480 222 Intake: Oral 237 480 222 Other: Voiding Method Toilet Toilet Toilet Bedside Commode Bedside Commode Bedside Commode Urinal Urinal Urinal Weight 114.8 kg 07/21/23 07:43 07/21/23 07:43
[2023-07-24 16:25] LABS: Glucose,Whole Blood 89 mg/dL (70-110)
--- NOTE | 2023-07-24 19:00 | P.PN ---
Progress Note - Text Progress Note Date: 07/24/23 Chief Complaint: Short of breath This is a 53-year-old patient, follows with Dr. Rodríguez. Chronic stable medical condition include CHF EF less than 20%, COPD, diabetes mellitus type 2, hypertension, hyperlipidemia, obstructive sleep apnea, anxiety, AICD, lower extremity venous insufficiency. Patient had lower extremity wounds and has been followed by ID and Dr. Lugo from vascular. in the hospital from May 14 through May 29. Patient had worsening wound after right foot. has been told multiple times to Dr. Lugo to proceed with amputation. Last admission he also was on IV Bumex drip and dobutamine drip for congestive heart failure. Was discharged home on antibiotics. Admitted from June 05 through June 10. Presented again with worsening wound. malodorous drainage. Denies fever and chills. Tired. Does not want surgery. Reluctant. And/or nystagmus and need for the same. It was explained to her that antibiotics are not helping. Patient was seen by cardiology Dr. Lugo from vascular. Patient readmitted on June 16 and on July 04. I seen the patient on June 16 admission. Patient initially agreed for amputation then declined the same. Patient discharged July 09. Patient now presents to ER with increasing shortness of breath. Mrs. dialysis on Saturday and because they will have right. He did go to dialysis yesterday and for short time then sent to the ER. Significant edema. Does make urine. Some cough. No fever no chills. Eating fair. Patient was dialyzed last night in the ER. Also placed on BiPAP. 07/22/2023: Patient had bleeding from right heel wound. Vascular Dr. Lugo consulted. Breathing better. Chronic stable dialysis tomorrow. Eating fair 07/23/2023: Right heel in the dressing. Discussed with Dr. Lugo. Amputation would be the only option. Discussed with the patient. Is not sure again. Getting dialyzed today. Eating well 07/24/2023: Had a very lengthy discussion with the patient today. He does understand he is being postponing surgery for a very long time. Reemphasized that his overall condition is getting much worse including not being on dialysis and recurrent infections in the leg. Patient has decided to proceed with amputation. I called Dr. Lugo. Spoke to the patient. Cardiology was again consulted for the clearance for the same. Patient now being scheduled for this coming Saturday. Total time spent today about 70 minutes with over 45 minutes of discussion. Discussed with ID. Current antibiotics to continue. Active Medications Acetaminophen (Acetaminophen Tab 325 Mg Tab) 650 mg PO Q6HR PRN PRN Reason: Mild Pain or Fever > 100.5 Last Admin: 07/23/23 22:09 Dose: 650 mg Hydrocodone Bitart/Acetaminophen (Hydrocodone/Apap 5-325mg 1 Each Tab) 1 each PO Q6HR PRN PRN Reason: Pain Last Admin: 07/24/23 17:10 Dose: 1 each Albuterol Sulfate (Albuterol Nebulized 2.5 Mg/3 Ml) 2.5 mg INHALATION RT-QID PRN PRN Reason: Shortness Of Breath Albuterol/Ipratropium (Ipratropium-Albuterol 3 Ml Neb) 3 ml INHALATION RT-QID LAN Last Admin: 07/24/23 15:31 Dose: Not Given Alprazolam (Alprazolam 0.5 Mg Tab) 0.5 mg PO Q8HR PRN PRN Reason: Anxiety Last Admin: 07/24/23 12:44 Dose: 0.5 mg Ascorbic Acid (Ascorbic Acid 500 Mg Tab) 1,000 mg PO DAILY [facility] Last Admin: 07/24/23 09:18 Dose: 1,000 mg Aspirin (Aspirin 81 Mg) 81 mg PO DAILY [facility] Last Admin: 07/24/23 09:18 Dose: 81 mg Dextrose/Water (Dextrose 50% Syringe 50 Ml) 25 ml IVP PER PROTOCOL PRN; Protocol PRN Reason: Hypoglycemia Dextrose/Water (Dextrose 50% Syringe 50 Ml) 50 ml IVP PER PROTOCOL PRN; Protocol PRN Reason: Hypoglycemia Duloxetine HCl (Duloxetine Hcl 30 Mg Capsule.Dr) 30 mg PO DAILY [facility] Last Admin: 07/24/23 09:18 Dose: 30 mg Famotidine (Famotidine 20 Mg Tab) 20 mg PO DAILY [facility] Last Admin: 07/24/23 09:18 Dose: 20 mg Fluphenazine HCl (Fluphenazine 1 Mg Tab) 3 mg PO HS [facility] Last Admin: 07/23/23 20:43 Dose: 3 mg Folic Acid (Folic Acid 1 Mg Tab) 1 mg PO DAILY [facility] Last Admin: 07/24/23 09:18 Dose: 1 mg Furosemide (Furosemide 10 Mg/Ml 10 Ml Vial) 80 mg IV Q12HR [facility] Last Admin: 07/24/23 12:15 Dose: 80 mg Heparin Sodium (Porcine) (Heparin Sodium,Porcine 5,000 Unit/Ml 1 Ml Vial) 5,000 unit SQ TID@0700,1500,2300 [facility] Last Admin: 07/24/23 17:11 Dose: 5,000 unit Hydromorphone HCl (Hydromorphone 0.5 Mg/0.5 Ml Syringe) 0.5 mg IVP Q6HR PRN PRN Reason: Pain Last Admin: 07/24/23 15:41 Dose: 0.5 mg Cefepime HCl 1 gm/ Sodium (Chloride) 50 mls @ 12.5 mls/hr IVPB [facility] Last Admin: 07/23/23 20:44 Dose: 12.5 mls/hr Daptomycin 500 mg/ Sodium (Chloride) 50 mls @ 100 mls/hr IVPB Q48H [facility] Last Admin: 07/22/23 20:16 Dose: 100 mls/hr Insulin Aspart (Insulin Aspart (Novolog) 100 Unit/Ml Vial) 5 unit SQ AC-TID [facility] Last Admin: 07/24/23 12:13 Dose: 5 unit Insulin Aspart (Insulin Aspart (Novolog) 100 Unit/Ml Vial) 0 unit SQ [facility]; Protocol Last Admin: 07/24/23 16:34 Dose: Not Given Insulin Detemir (Insulin Detemir (Levemir) 100 Unit/Ml Syr) 28 unit SQ [facility] Last Admin: 07/23/23 20:59 Dose: Not Given Lactulose (Lactulose 20 Gm/30 Ml Cup) 20 gm PO DAILY PRN PRN Reason: Constipation Metoprolol Tartrate (Metoprolol Tartrate 25 Mg Tab) 25 mg PO BID [facility] Last Admin: 07/24/23 09:17 Dose: 25 mg Metronidazole (Metronidazole 500 Mg Tab) 500 mg PO TID@0700,1500,2300 [facility]; Protocol Last Admin: 07/24/23 17:10 Dose: 500 mg Midodrine (Midodrine 5 Mg Tab) 10 mg PO TID@0730,1100,1600 [facility] Last Admin: 07/24/23 17:10 Dose: 10 mg Midodrine (Midodrine 5 Mg Tab) 10 mg PO DAILY PRN PRN Reason: Blood Pressure - Low Last Admin: 07/23/23 23:36 Dose: 10 mg Multivitamins (Multivitamins, Thera 1 Each Tab) 1 each PO DAILY [facility] Last Admin: 07/24/23 09:18 Dose: 1 each Naloxone HCl (Naloxone 0.4 Mg/Ml 1 Ml Vial) 0.2 mg IV Q2M PRN PRN Reason: Opioid Reversal Olanzapine (Olanzapine 5 Mg Tab) 5 mg PO TID PRN PRN Reason: Agitation Last Admin: 07/21/23 02:09 Dose: 5 mg Quetiapine Fumarate (Quetiapine 25 Mg Tab) 12.5 mg PO BID PRN PRN Reason: Agitation Quetiapine Fumarate (Quetiapine 25 Mg Tab) 12.5 mg PO BID [facility] Last Admin: 07/24/23 09:17 Dose: 12.5 mg Silver Sulfadiazine (Silver Sulfadiazine 1% Cream 25 Gm Tube) 1 applic TOPICAL BID@0800,1700 [facility]; Protocol Last Admin: 07/24/23 16:34 Dose: Not Given Thiamine HCl (Thiamine 100 Mg Tab) 100 mg PO DAILY [facility] Last Admin: 07/24/23 09:17 Dose: 100 mg Trazodone HCl (Trazodone Hcl 50 Mg Tab) 50 mg PO HS PRN PRN Reason: Insomnia Zinc Sulfate (Zinc Sulfate 220 Mg Cap) 220 mg PO DAILY [facility] Last Admin: 07/24/23 09:18 Dose: 220 mg Social history: Lives with his 20-year-old son. Disabled. 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 Smoking 2 packs a day for most of his life . Stop drinking heavy alcohol about 20 years ago. Has done marijuana. Physical examination: VITAL SIGNS: 97.5, 83, 20, 103/62, 100% on 2 L GENERAL: Laying in bed EYES: Pupils equal. Conjunctiva normal. HEENT: External appearance of nose and ears normal, oral cavity grossly normal. NECK: JVD unable to assess; masses not palpable. HEART: First and second heart sounds are normal; significant edema LUNGS: Respiratory rate increased; diminished breath sounds ABDOMEN: Soft, nontender, liver spleen not palpable, no masses palpable. Scrotal swelling PSYCH: Alert and oriented x3; mood and affect anxious. NEUROLOGICAL: Cranial nerves grossly intact. No facial asymmetry DERMATOLOGICAL: Right foot wound with dressing. Details in nursing chart. INVESTIGATIONS, reviewed in the clinical context: 07/21/2023: White count 6.9 hemoglobin 10.8 platelets 193 sodium 133 potassium 5.7 BUN [id number] 2.14 EKG tracing personally reviewed by me-sinus tachycardia. Some ST-T wave changes. Chest x-ray film personally reviewed by me-cardiomegaly. Some venous prominence Assessment and plan: -Acute on chronic congestive heart failure nonischemic cardiomyopathy systolic dysfunction EF less than 20%: Worsening from missed hemodialysis.: Slow to respond IV Lasix 80 mg every 12. AICD. Fluid restriction 1500 mL. Being followed by cardiology and nephrology -Acute hypoxic respiratory failure from fluid overload/CHF.: Improved Placed on BiPAP last night in the ER. -Acute on chronic recurrent right lower leg cellulitis, infected right heel diabetic ulcer with prior history of debridement. Has been told multiple times about surgery. Wound swab for Gram stain and culture. Proteus vulgaris, Streptococcus agalactiae group B-previously IV cefepime and IV daptomycin Patient has not healed with antibiotics and debridement alone. Does need amputation as discussed previously with Dr. Lugo. Patient has repeatedly turned on surgery as he has not been able to make a decision Today patient agreed to proceed with amputation.. - COPD in a previous smoker Ventolin. DuoNeb. -Diabetes mellitus type 2 chronically on insulin, uncontrolled with [id number] Levemir 28 units subcu Diabetic diet. Accu-Cheks and sliding scale -Hyperlipidemia Lipitor -Chronic kidney disease stage III from diabetic nephropathy and nephrosclerosis Baseline creatinine of 1.2 on May 14. -Hemodialysis dependent acute kidney injury with severe volume on board. Patient has been noncompliant with dialysis. Follow with nephrology -Hyponatremia-mild Fluid restriction -Chronic low back pain. Patient's had pain on and off for about 10 years. Has had prior surgery. Does not remember who did the surgery. topical lidocaine patch. -Essential hypertension Lopressor -Obstructive sleep apnea sometimes uses CPAP machine -Diabetic peripheral neuropathy -Anxiety Ativan when necessary -DJD Tylenol when necessary -AICD -Lower extremity chronic venous insufficiency -Full code Amputation scheduled for Saturday. Discussed with ID and Dr. Lugo. And the patient
[2023-07-24 20:15] LABS: Glucose,Whole Blood 128 mg/dL (70-110)
[2023-07-24] MEDS: INSULIN DETEMIR (LEVEMIR) 100 UNIT/ML SYR SQ SCH (20:42)
[2023-07-24] MEDS: DAPTOmycin 500 MG in SODIUM CHLORIDE 0.9% 50 ML IVPB SCH (20:51)
[2023-07-24] MEDS: CEFEPIME 1 GM in SODIUM CHLORIDE 0.9% 50 ML IVPB SCH (22:09)
--- NOTE | 2023-07-25 00:40 | PN ---
PROGRESS NOTE This is a 53-year-old gentleman who has a longstanding history of chronic wound right foot plantar aspect with exposed calcaneus and infected wound involving the tendocalcaneus area. The patient has been admitted several times to the hospital on and off. The patient needed a major amputation. He is refusing his amputation in the past, now is agreeable. Discussed with Dr. Johnson for medical clearance and the patient has history of diabetes mellitus, hypertension, AICD placed in the past, obstructive sleep apnea, and chronic wound involving the right lower extremity. There is a marked swelling of the right lower extremity and superficial ulcer noted on the lower extremity with marked swelling above the knee joint. The skin is clean and decent. No ulcer noted. Discussed with the patient and his . They are agreeable for above-knee amputation. We will ask Cardiology or Internal Medicine for clearance. Risks and complications discussed with the patient and the . We will arrange for right above-knee amputation. MMODL / IJN: [id number] /
[2023-07-25] MEDS: HYDROcodone/APAP 5-325MG 1 EACH TAB PO PRN ×2 (02:16→08:20)
[2023-07-25] MEDS: OLANZapine 5 MG TAB PO PRN (02:49)
[2023-07-25] MEDS: HYDROmorphone 0.5 MG/0.5 ML SYRINGE IVP PRN ×3 (03:59→20:53)
[2023-07-25] MEDS: INSULIN ASPART (NovoLOG) 100 UNIT/ML VIAL SQ SCH ×7 (06:25→20:42)
[2023-07-25 06:30] LABS: Glucose,Whole Blood 119 mg/dL (70-110)
[2023-07-25] MEDS: MIDODRINE 5 MG TAB PO SCH ×3 (06:51→17:32)
[2023-07-25] MEDS: HEPARIN SODIUM,PORCINE 5,000 UNIT/ML 1 ML VIAL SQ SCH ×3 (06:51→21:12)
[2023-07-25] MEDS: metroNIDAZOLE 500 MG TAB PO SCH ×3 (06:51→20:55)
[2023-07-25 07:08] LABS: Anisocytosis Slight; Basophils # (A) 0.1 k/uL (0-0.2); Basophils % (A) 1 %; Eosinophils # (A) 0.2 k/uL (0-0.7); Eosinophils % (A) 2 %; HCT 32.3 % (39.0-53.0); HGB 9.8 gm/dL (13.0-17.5); Hypochromasia Marked; Lymphocytes # (A) 1.6 k/uL (1.0-4.8); Lymphocytes % (A) 13 %; MCH 27.6 pg (25.0-35.0); MCHC 30.4 g/dL (31.0-37.0); MCV 90.6 fL (80.0-100.0); Mean Platelet Volume 8.9; Monocytes # (A) 0.9 k/uL (0-1.0); Monocytes % (A) 8 %; Neutrophils # (A) 8.8 k/uL (1.3-7.7); Neutrophils % (A) 73 %; Platelet Count 223 k/uL (150-450); RBC 3.56 m/uL (4.30-5.90); RDW 16.4 % (11.5-15.5)
[2023-07-25] MEDS: ALPRAZolam 0.5 MG TAB PO PRN ×2 (08:21→20:53)
[2023-07-25] MEDS: FUROSEMIDE 10 MG/ML 10 ML VIAL IV SCH ×2 (08:21→20:54)
[2023-07-25] MEDS: DULoxetine HCL 30 MG CAPSULE.DR PO SCH (08:22)
[2023-07-25] MEDS: ZINC SULFATE 220 MG CAP PO SCH (08:22)
[2023-07-25] MEDS: ASCORBIC ACID 500 MG TAB PO SCH (08:22)
[2023-07-25] MEDS: FAMOTIDINE 20 MG TAB PO SCH (08:22)
[2023-07-25] MEDS: FOLIC ACID 1 MG TAB PO SCH (08:22)
[2023-07-25] MEDS: METOPROLOL TARTRATE 25 MG TAB PO SCH ×2 (08:22→20:55)
[2023-07-25] MEDS: THIAMINE 100 MG TAB PO SCH (08:22)
[2023-07-25] MEDS: MULTIVITAMINS, THERA 1 EACH TAB PO SCH (08:23)
[2023-07-25] MEDS: QUEtiapine 25 MG TAB PO SCH ×2 (08:23→20:54)
[2023-07-25] MEDS: ASPIRIN 81 MG PO SCH (08:23)
[2023-07-25] MEDS: IPRATROPIUM-ALBUTEROL 3 ML NEB INHALATION SCH ×4 (09:44→21:08)
--- NOTE | 2023-07-25 11:07 | P.PN ---
Subjective HISTORY OF PRESENT ILLNESS: This is a 52-year-old male with a past medical history significant for nonischemic cardiomyopathy, AICD implantation, nonsustained ventricular tachycardia, hypertension, hyperlipidemia, COPD, nicotine dependence, diabetes and right-sided foot diabetic ulcer. Patient follows in the office with Dr. Abbasi. We have been asked to see the patient in consultation for preoperative clearance. Patient examined at the bedside. Patient has been evaluated by vascular surgery with recommendations for right-sided [id number] amputation. Patient has refused amputation previously however he has decided to proceed with amputation now. The patient denies any chest pain or pressure. He denies shortness of breath. He is currently receiving hemodialysis at the time of examination. * EKG reveals sinus mechanism with heart rate of 116. * Chest xray moderate cardiomegaly and interstitial changes along with Иван B lines. Correlate for developing interstitial pulmonary edema * Current home cardiac medications include torsemide 40 mg daily, Midodrine 10 mg 3 times a day, metoprolol tartrate 25 mg twice a day, aspirin 81 mg daily * Most recent echocardiogram obtained in June 2022 revealed ejection fraction less than 20%, severe pulmonary hypertension, moderate to severe mitral regurgitation, moderate tricuspid regurgitation * Cardiac catheterization history: February 2018 revealing minimal coronary artery disease 07/25/2023 Patient examined this morning. Patient is sitting up in a chair. Patient currently denies chest pain or pressure. He denies shortness of breath. He complains of pain that is not well controlled on current regimen. He also reports scrotal edema this morning and is having a hard time getting comfortable in the chair because of this. PHYSICAL EXAM: VITAL SIGNS: Reviewed. GENERAL: Well-developed in no acute distress. HEENT: Head is normocephalic. Pupils are equal, round. Sclerae anicteric. Mucous membranes of the mouth are moist. Neck supple. No JVD or thyromegaly LUNGS: Respirations even and unlabored. Lungs essentially clear to auscultation bilaterally. HEART: Regular rate and rhythm. S1 and S2 heard. Systolic murmur noted. ABDOMEN: Soft. Nondistended. Nontender. EXTREMITIES: Normal range of motion. No clubbing or cyanosis. Peripheral pulses intact. 3+ bilateral lower extremity edema. NEUROLOGIC: Awake and alert. Oriented x 3. ASSESSMENT: Right foot wound, scheduled to undergo right [id number] amputation Nonischemic cardiomyopathy History of AICD implantation Acute on chronic heart failure with reduced ejection fraction History of nonsustained ventricular tachycardia Hyperlipidemia Diabetes Chronic kidney disease on hemodialysis Nicotine dependence History of medication noncompliance Hypotension, maintained on Midodrine outpatient, unable to tolerate BALBINA/ARB PLAN: Continue current cardiac medications Continue to monitor blood pressure Hemodialysis per nephrology Patient agreeable to right AKA. Vascular following. Patient is at intermediate to high risk to undergo surgery from a cardiac standpoint. There are no absolute contraindications for patient to proceed. Further recommendations pending patient's course Nurse practitioner note has been reviewed by physician. Signing provider agrees with the documented findings, assessment, and plan of care. Objective - Vital Signs Vital signs: Vital Signs Temp 98 F 07/25/23 08:00 Pulse 100 07/25/23 08:00 Resp 16 07/25/23 08:00 BP 102/54 07/25/23 08:00 Pulse Ox 99 07/25/23 08:00 FiO2 30 07/20/23 14:29 Intake & Output 07/24/23 07/25/23 07/25/23 18:59 06:59 18:59 Intake Total 444 1160 180 Output Total 0 2800 1 Balance 444 -1640 179 Weight 115 kg Intake: Oral 444 760 180 Hemodialysis 400 Output: Urine 0 1 Hemodialysis 2800 Other: Voiding Method Toilet Bedside Commode Bedside Commode Bedside Commode Urinal Urinal Urinal # Voids 1 # Bowel Movements 1 - Labs CBC & Chem 7: 07/25/23 06:25 07/21/23 07:43 Labs: Abnormal Lab Results - Last 24 Hours (Table) 07/24/23 07/24/23 07/25/23 Range/Units 11:24 20:12 06:25 WBC 12.0 H (3.8-10.6) k/uL RBC 3.56 L (4.30-5.90) m/uL Hgb 9.8 L (13.0-17.5) gm/dL Hct 32.3 L (39.0-53.0) % MCHC 30.4 L (31.0-37.0) g/dL RDW 16.4 H (11.5-15.5) % Neutrophils # 8.8 H (1.3-7.7) k/uL POC Glucose (mg/dL) 177 H 128 H (70-110) mg/dL 07/25/23 Range/Units 06:25 WBC (3.8-10.6) k/uL RBC (4.30-5.90) m/uL Hgb (13.0-17.5) gm/dL Hct (39.0-53.0) % MCHC (31.0-37.0) g/dL RDW (11.5-15.5) % Neutrophils # (1.3-7.7) k/uL POC Glucose (mg/dL) 119 H (70-110) mg/dL Microbiology - Last 24 Hours (Table) 07/23/23 11:00 Blood Culture - Preliminary Blood 07/23/23 10:43 Blood Culture - Preliminary Blood 07/20/23 21:25 Blood Culture - Preliminary Blood
[2023-07-25 11:34] LABS: Glucose,Whole Blood 61 mg/dL (70-110)
--- NOTE | 2023-07-25 12:21 | P.PN ---
Subjective Patient is seen for follow-up for end-stage renal disease. Status post consecutive hemodialysis treatments with UF of 10 L so far. Significant scrotal edema and volume overload still persists. No significant complaints today. Objective - Vital Signs Vital signs: Vital Signs Temp 98 F 07/25/23 08:00 Pulse 100 07/25/23 08:00 Resp 16 07/25/23 08:00 BP 102/54 07/25/23 08:00 Pulse Ox 99 07/25/23 08:00 FiO2 30 07/20/23 14:29 Intake & Output 07/24/23 07/25/23 07/25/23 18:59 06:59 18:59 Intake Total 444 1160 180 Output Total 0 2800 1 Balance 444 -1640 179 Weight 115 kg 115 kg Intake: Oral 444 760 180 Hemodialysis 400 Output: Urine 0 1 Hemodialysis 2800 Other: Voiding Method Toilet Bedside Commode Bedside Commode Bedside Commode Urinal Urinal Urinal # Voids 1 # Bowel Movements 1 - Exam Patient is awake, comfortable, no acute distress Examination of the heart S1 and S2 Examination lungs decreased breath sounds at the bases Abdomen is obese distended with significant scrotal edema Bilateral lower extremity shows edema 3-4+, legs are wrapped - Labs CBC & Chem 7: 07/25/23 06:25 07/21/23 07:43 Labs: Abnormal Lab Results - Last 24 Hours (Table) 07/24/23 07/25/23 07/25/23 Range/Units 20:12 06:25 06:25 WBC 12.0 H (3.8-10.6) k/uL RBC 3.56 L (4.30-5.90) m/uL Hgb 9.8 L (13.0-17.5) gm/dL Hct 32.3 L (39.0-53.0) % MCHC 30.4 L (31.0-37.0) g/dL RDW 16.4 H (11.5-15.5) % Neutrophils # 8.8 H (1.3-7.7) k/uL POC Glucose (mg/dL) 128 H 119 H (70-110) mg/dL 07/25/23 Range/Units 11:28 WBC (3.8-10.6) k/uL RBC (4.30-5.90) m/uL Hgb (13.0-17.5) gm/dL Hct (39.0-53.0) % MCHC (31.0-37.0) g/dL RDW (11.5-15.5) % Neutrophils # (1.3-7.7) k/uL POC Glucose (mg/dL) 61 L (70-110) mg/dL Microbiology - Last 24 Hours (Table) 07/23/23 11:00 Blood Culture - Preliminary Blood 07/23/23 10:43 Blood Culture - Preliminary Blood 07/20/23 21:25 Blood Culture - Preliminary Blood Assessment and Plan Assessment: 1. Severe volume overload, anasarca. Patient will be maintained on IV Lasix and maintained on daily dialysis treatments 2. Hemodialysis dependent acute kidney injury with severe volume overload. Patient has been noncompliant with dialysis as outpatient. 3. Cardiomyopathy with EF of less than 20% 4. Status post recent Covid infection, earlier this month 5. CK D stage III secondary to diabetic kidney disease and cardiorenal syndrome currently with hemodialysis dependent renal failure. 6. Right lower extremity wound with significant edema. patient has refused amputation previously. Plan: Continue IV Lasix Continue daily UF/hemodialysis for volume overload Salt and fluid restriction Continue with antibiotics.
[2023-07-25 12:39] VITALS: BMI 35.3
--- NOTE | 2023-07-25 16:45 | P.PN ---
Progress Note - Text Patient was seen today patient is having dialysis patient scheduled to have a right above-knee amputation risk and complication discussed with the patient and the patient nothing by mouth midnight and consent for right leg [id number] amputation
[2023-07-25 16:47] LABS: Glucose,Whole Blood 67 mg/dL (70-110)
--- NOTE | 2023-07-25 17:38 | P.PN ---
Subjective Progress Note Date: 07/24/23 Principal diagnosis: Reason for follow-up is right heel diabetic foot ulcer and osteomyelitis, positive blood culture Patient is a 53-year-old male with a past medical history significant for coronary artery disease COPD diabetes mellitus hypertension hyperlipidemia [place] sleep apnea end-stage renal disease on dialysis patient did have a chronic nonhealing wound to the right heel area with underlying osteomyelitis for the patient did have a multiple admission to this facility, patient did have issues with noncompliance recently signed out from shelter facility and then subsequently did not show up for his dialysis and then presented to the hospital with worsening shortness of breath On today's evaluation that is 07/24/2023 patient continues to be afebrile, patient is breathing comfortably on room air without need for supplemental oxygen denies any chest pain shortness of the cough no nausea vomiting abdominal pain or any worsening pain to the right heel. Patient did not have any lab draw today, blood culture repeat so far pending Objective - Vital Signs Vital signs: Vital Signs Temp 97.6 F 07/24/23 11:21 Pulse 94 07/24/23 11:21 Resp 20 07/24/23 11:21 BP 99/65 07/24/23 11:21 Pulse Ox 96 07/24/23 11:21 FiO2 30 07/20/23 14:29 Intake & Output 07/23/23 07/24/23 07/24/23 18:59 06:59 18:59 Intake Total 637 480 222 Output Total 3000 Balance -5023 480 222 Weight 114.8 kg Intake: Oral 237 480 222 Hemodialysis 400 Output: Hemodialysis 3000 Other: Voiding Method Toilet Toilet Toilet Bedside Commode Bedside Commode Bedside Commode Urinal Urinal Urinal # Bowel Movements 0 - Exam GENERAL DESCRIPTION: Middle-age male lying in bed in no distress RESPIRATORY SYSTEM: Unlabored breathing , decreased breath sounds at bases HEART: S1 S2 regular rate and rhythm , ABDOMEN: Soft , no tenderness EXTREMITIES: Right heel wound is currently dressed with minimal drainage on the dressing. - Labs CBC & Chem 7: 07/25/23 06:25 07/21/23 07:43 Labs: Abnormal Lab Results - Last 24 Hours (Table) 07/23/23 07/24/23 07/24/23 Range/Units 10:11 05:42 11:24 POC Glucose (mg/dL) 140 H 177 H (70-110) mg/dL Procalcitonin 0.59 H (0.02-0.09) ng/mL Microbiology - Last 24 Hours (Table) 07/20/23 21:25 Blood Culture - Preliminary Blood 07/20/23 21:10 Blood Culture Gram Stain - Final Blood Blood Culture - Final Streptococcus viridans group Assessment and Plan (1) Foot osteomyelitis, right Current Visit: No Status: Acute Code(s): M86.9 - OSTEOMYELITIS, UNSPECIFIED SNOMED Code(s): 9479012813089947 (2) Non compliance with medical treatment Current Visit: Yes Status: Acute Code(s): Z91.199 - PT NONCOMPL WITH OTHER MED TRTMT AND REGIMEN D/T UNSP REASON SNOMED Code(s): 1216949 (3) Bacteremia Current Visit: Yes Status: Acute Code(s): R78.81 - BACTEREMIA SNOMED C ode(s): 2984236 Plan: 1-patient with a positive blood culture with gram-positive cocci questionably related to his dialysis catheter versus right heel diabetic foot infection with underlying osteomyelitis found with the patient has previously grown MRSA Prot eus strep and anaerobes and the patient still have nonhealing of this wound despite receiving antibiotic therapy since 05/15/2023, with a chance of healing of this wound with the medical therapy Minimal to impossible patient apparently seem to have agreed for amputation and has been scheduled for 07/26/2023 as per discussion with the vascular surgeon. 2blood culture has been repeated and currently pending. 3patient to continue daptomycin cefepime and Flagyl and monitor clinical course closely Dictation was produced using [employer] dictation software. please excuse any grammatical, word or spelling errors. Time with Patient: Less than 30
--- NOTE | 2023-07-25 17:39 | P.PN ---
Subjective Progress Note Date: 07/25/23 Principal diagnosis: Reason for follow-up is right heel diabetic foot ulcer and osteomyelitis, positive blood culture Patient is a 53-year-old male with a past medical history significant for coronary artery disease COPD diabetes mellitus hypertension hyperlipidemia [place] sleep apnea end-stage renal disease on dialysis patient did have a chronic nonhealing wound to the right heel area with underlying osteomyelitis for the patient did have a multiple admission to this facility, patient did have issues with noncompliance recently signed out from custodial facility and then subsequently did not show up for his dialysis and then presented to the hospital with worsening shortness of breath On today's evaluation that is 07/25/2023 patient remains to be afebrile patient apparently has received his pain medication and was noticed to be sleepy lethargic and did not answer any question he is breathing comfortably room air no vomiting or diarrhea has been reported by the nursing staff. Patient did have white count of 12,000 blood culture repeat on 07/23/2023 has been negative so far Objective - Vital Signs Vital signs: Vital Signs Temp 98 F 07/25/23 08:00 Pulse 100 07/25/23 08:00 Resp 16 07/25/23 08:00 BP 102/54 07/25/23 08:00 Pulse Ox 99 07/25/23 08:00 FiO2 30 07/20/23 14:29 Intake & Output 07/24/23 07/25/23 07/25/23 18:59 06:59 18:59 Intake Total 444 1160 180 Output Total 0 2800 1 Balance 444 -1640 179 Weight 115 kg 115 kg Intake: Oral 444 760 180 Hemodialysis 400 Output: Urine 0 1 Hemodialysis 2800 Other: Voiding Method Toilet Bedside Commode Bedside Commode Bedside Commode Urinal Urinal Urinal # Voids 1 # Bowel Movements 1 - Exam GENERAL DESCRIPTION: Middle-age male lying in bed in no distress RESPIRATORY SYSTEM: Unlabored breathing , decreased breath sounds at bases HEART: S1 S2 regular rate and rhythm , ABDOMEN: Soft , no tenderness EXTREMITIES: Right heel wound is currently dressed with minimal drainage on the dressing. - Labs CBC & Chem 7: 07/25/23 06:25 07/21/23 07:43 Labs: Abnormal Lab Results - Last 24 Hours (Table) 07/24/23 07/25/23 07/25/23 Range/Units 20:12 06:25 06:25 WBC 12.0 H (3.8-10.6) k/uL RBC 3.56 L (4.30-5.90) m/uL Hgb 9.8 L (13.0-17.5) gm/dL Hct 32.3 L (39.0-53.0) % MCHC 30.4 L (31.0-37.0) g/dL RDW 16.4 H (11.5-15.5) % Neutrophils # 8.8 H (1.3-7.7) k/uL POC Glucose (mg/dL) 128 H 119 H (70-110) mg/dL 07/25/23 Range/Units 11:28 WBC (3.8-10.6) k/uL RBC (4.30-5.90) m/uL Hgb (13.0-17.5) gm/dL Hct (39.0-53.0) % MCHC (31.0-37.0) g/dL RDW (11.5-15.5) % Neutrophils # (1.3-7.7) k/uL POC Glucose (mg/dL) 61 L (70-110) mg/dL Microbiology - Last 24 Hours (Table) 07/23/23 11:00 Blood Culture - Preliminary Blood 07/23/23 10:43 Blood Culture - Preliminary Blood 07/20/23 21:25 Blood Culture - Preliminary Blood Assessment and Plan (1) Foot osteomyelitis, right Current Visit: No Status: Acute Code(s): M86.9 - OSTEOMYELITIS, UNSPECIFIED SNOMED Code(s): 9819484790166472 (2) Non compliance with medical treatment Current Visit: Yes Status: Acute Code(s): Z91.199 - PT NONCOMPL WITH OTHER MED TRTMT AND REGIMEN D/T UNSP REASON SNOMED Code(s): 7556245 (3) Bacteremia Current Visit: Yes Status: Acute Code(s): R78.81 - BACTEREMIA SNOMED Code(s): 0205066 Plan: 1-patient with a positive blood culture with gram-positive cocci questionably related to his dialysis catheter versus right heel diabetic foot infection with underlying osteomyelitis found with the patient has previously grown MRSA Proteus strep and anaerobes and the patient still have nonhealing of this wound despite receiving antibiotic therapy since 05/15/2023, with a chance of healing of this wound with the medical therapy Minimal to impossible patient apparently seem to have agreed for amputation and has been scheduled for 07/26/2023 as per discussion with the vascular surgeon. 2blood culture has been repeated On 07/23/2023 and has been negative so far. 3patient is currently covered with daptomycin cefepime Flagyl to continue may not need further antibiotic therapy after amputation Dictation was produced using [employer] dictation software. please excuse any grammatical, word or spelling errors. Time with Patient: Less than 30
[2023-07-25 20:23] LABS: Glucose,Whole Blood 140 mg/dL (70-110)
[2023-07-25] MEDS: INSULIN DETEMIR (LEVEMIR) 100 UNIT/ML SYR SQ SCH (21:10)
[2023-07-25] MEDS: CEFEPIME 1 GM in SODIUM CHLORIDE 0.9% 50 ML IVPB SCH (21:12)
--- NOTE | 2023-07-25 22:01 | P.PN ---
Progress Note - Text Progress Note Date: 07/25/23 Chief Complaint: Short of breath This is a 53-year-old patient, follows with Dr. Rodríguez. Chronic stable medical condition include CHF EF less than 20%, COPD, diabetes mellitus type 2, hypertension, hyperlipidemia, obstructive sleep apnea, anxiety, AICD, lower extremity venous insufficiency. Patient had lower extremity wounds and has been followed by ID and Dr. Lugo from vascular. in the hospital from May 14 through May 29. Patient had worsening wound after right foot. has been told multiple times to Dr. Lugo to proceed with amputation. Last admission he also was on IV Bumex drip and dobutamine drip for congestive heart failure. Was discharged home on antibiotics. Admitted from June 05 through June 10. Presented again with worsening wound. malodorous drainage. Denies fever and chills. Tired. Does not want surgery. Reluctant. And/or nystagmus and need for the same. It was explained to her that antibiotics are not helping. Patient was seen by cardiology Dr. Lugo from vascular. Patient readmitted on June 16 and on July 04. I seen the patient on June 16 admission. Patient initially agreed for amputation then declined the same. Patient discharged July 09. Patient now presents to ER with increasing shortness of breath. Mrs. dialysis on Saturday and because they will have right. He did go to dialysis yesterday and for short time then sent to the ER. Significant edema. Does make urine. Some cough. No fever no chills. Eating fair. Patient was dialyzed last night in the ER. Also placed on BiPAP. 07/22/2023: Patient had bleeding from right heel wound. Vascular Dr. Lugo consulted. Breathing better. Chronic stable dialysis tomorrow. Eating fair 07/23/2023: Right heel in the dressing. Discussed with Dr. Lugo. Amputation would be the only option. Discussed with the patient. Is not sure again. Getting dialyzed today. Eating well 07/24/2023: Had a very lengthy discussion with the patient today. He does understand he is being postponing surgery for a very long time. Reemphasized that his overall condition is getting much worse including not being on dialysis and recurrent infections in the leg. Patient has decided to proceed with amputation. I called Dr. Lugo. Spoke to the patient. Cardiology was again consulted for the clearance for the same. Patient now being scheduled for this coming Saturday. Total time spent today about 70 minutes with over 45 minutes of discussion. Discussed with ID. Current antibiotics to continue. 07/25/2023: On the recliner. Patient is ready for amputation tomorrow. No new issues. Discussed. Active Medications Acetaminophen (Acetaminophen Tab 325 Mg Tab) 650 mg PO Q6HR PRN PRN Reason: Mild Pain or Fever > 100.5 Last Admin: 07/23/23 22:09 Dose: 650 mg Hydrocodone Bitart/Acetaminophen (Hydrocodone/Apap 5-325mg 1 Each Tab) 1 each PO Q6HR PRN PRN Reason: Pain Last Admin: 07/25/23 08:20 Dose: 1 each Albuterol Sulfate (Albuterol Nebulized 2.5 Mg/3 Ml) 2.5 mg INHALATION RT-QID PRN PRN Reason: Shortness Of Breath Albuterol/Ipratropium (Ipratropium-Albuterol 3 Ml Neb) 3 ml INHALATION RT-QID [facility] Last Admin: 07/25/23 21:08 Dose: Not Given Alprazolam (Alprazolam 0.5 Mg Tab) 0.5 mg PO Q8HR PRN PRN Reason: Anxiety Last Admin: 07/25/23 20:53 Dose: 0.5 mg Ascorbic Acid (Ascorbic Acid 500 Mg Tab) 1,000 mg PO DAILY [facility] Last Admin: 07/25/23 08:22 Dose: 1,000 mg Aspirin (Aspirin 81 Mg) 81 mg PO DAILY [facility] Last Admin: 07/25/23 08:23 Dose: 81 mg Dextrose/Water (Dextrose 50% Syringe 50 Ml) 25 ml IVP PER PROTOCOL PRN; Protocol PRN Reason: Hypoglycemia Dextrose/Water (Dextrose 50% Syringe 50 Ml) 50 ml IVP PER PROTOCOL PRN; Protocol PRN Reason: Hypoglycemia Duloxetine HCl (Duloxetine Hcl 30 Mg Capsule.Dr) 30 mg PO DAILY [facility] Last Admin: 07/25/23 08:22 Dose: 30 mg Famotidine (Famotidine 20 Mg Tab) 20 mg PO DAILY [facility] Last Admin: 07/25/23 08:22 Dose: 20 mg Fluphenazine HCl (Fluphenazine 1 Mg Tab) 3 mg PO HS [facility] Last Admin: 07/25/23 21:01 Dose: 3 mg Folic Acid (Folic Acid 1 Mg Tab) 1 mg PO DAILY [facility] Last Admin: 07/25/23 08:22 Dose: 1 mg Furosemide (Furosemide 10 Mg/Ml 10 Ml Vial) 80 mg IV Q12HR [facility] Last Admin: 07/25/23 20:54 Dose: 80 mg Heparin Sodium (Porcine) (Heparin Sodium,Porcine 5,000 Unit/Ml 1 Ml Vial) 5,000 unit SQ TID@0700,1500,2300 [facility] Last Admin: 07/25/23 21:12 Dose: 5,000 unit Hydromorphone HCl (Hydromorphone 0.5 Mg/0.5 Ml Syringe) 0.5 mg IVP Q6HR PRN PRN Reason: Pain Last Admin: 07/25/23 20:53 Dose: 0.5 mg Cefepime HCl 1 gm/ Sodium (Chloride) 50 mls @ 12.5 mls/hr IVPB [facility] Last Admin: 07/25/23 21:12 Dose: 12.5 mls/hr Daptomycin 500 mg/ Sodium (Chloride) 50 mls @ 100 mls/hr IVPB Q48H [facility] Last Admin: 07/24/23 20:51 Dose: 100 mls/hr Insulin Aspart (Insulin Aspart (Novolog) 100 Unit/Ml Vial) 5 unit SQ AC-TID [facility] Last Admin: 07/25/23 17:31 Dose: Not Given Insulin Aspart (Insulin Aspart (Novolog) 100 Unit/Ml Vial) 0 unit SQ ACHS [facility]; Protocol Last Admin: 07/25/23 20:42 Dose: Not Given Insulin Detemir (Insulin Detemir (Levemir) 100 Unit/Ml Syr) 28 unit SQ [facility] Last Admin: 07/25/23 21:10 Dose: 28 unit Lactulose (Lactulose 20 Gm/30 Ml Cup) 20 gm PO DAILY PRN PRN Reason: Constipation Metoprolol Tartrate (Metoprolol Tartrate 25 Mg Tab) 25 mg PO BID [facility] Last Admin: 07/25/23 20:55 Dose: 25 mg Metronidazole (Metronidazole 500 Mg Tab) 500 mg PO TID@0700,1500,2300 [facility]; Protocol Last Admin: 07/25/23 20:55 Dose: 500 mg Midodrine (Midodrine 5 Mg Tab) 10 mg PO TID@0730,1100,1600 [facility] Last Admin: 07/25/23 17:32 Dose: 10 mg Midodrine (Midodrine 5 Mg Tab) 10 mg PO DAILY PRN PRN Reason: Blood Pressure - Low Last Admin: 07/23/23 23:36 Dose: 10 mg Multivitamins (Multivitamins, Thera 1 Each Tab) 1 each PO DAILY [facility] Last Admin: 07/25/23 08:23 Dose: 1 each Naloxone HCl (Naloxone 0.4 Mg/Ml 1 Ml Vial) 0.2 mg IV Q2M PRN PRN Reason: Opioid Reversal Olanzapine (Olanzapine 5 Mg Tab) 5 mg PO TID PRN PRN Reason: Agitation Last Admin: 07/25/23 02:49 Dose: 5 mg Quetiapine Fumarate (Quetiapine 25 Mg Tab) 12.5 mg PO BID PRN PRN Reason: Agitation Quetiapine Fumarate (Quetiapine 25 Mg Tab) 12.5 mg PO BID [facility] Last Admin: 07/25/23 20:54 Dose: 12.5 mg Silver Sulfadiazine (Silver Sulfadiazine 1% Cream 25 Gm Tube) 1 applic TOPICAL BID@0800,1700 [facility]; Protocol Last Admin: 07/25/23 17:33 Dose: Not Given Thiamine HCl (Thiamine 100 Mg Tab) 100 mg PO DAILY [facility] Last Admin: 07/25/23 08:22 Dose: 100 mg Trazodone HCl (Trazodone Hcl 50 Mg Tab) 50 mg PO HS PRN PRN Reason: Insomnia Zinc Sulfate (Zinc Sulfate 220 Mg Cap) 220 mg PO DAILY [facility] Last Admin: 07/25/23 08:22 Dose: 220 mg Social history: Lives with his 20-year-old son. Disabled. 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 Smoking 2 packs a day for most of his life . Stop drinking heavy alcohol about 20 years ago. Has done marijuana. Physical examination: VITAL SIGNS: 97.4, 92, 18, 11 7 x 72, 95% room air GENERAL: Laying in bed EYES: Pupils equal. Conjunctiva normal. HEENT: External appearance of nose and ears normal, oral cavity grossly normal. NECK: JVD unable to assess; masses not palpable. HEART: First and second heart sounds are normal; significant edema LUNGS: Respiratory rate increased; diminished breath sounds ABDOMEN: Soft, nontender, liver spleen not palpable, no masses palpable. Scrotal swelling PSYCH: Alert and oriented x3; mood and affect anxious. NEUROLOGICAL: Cranial nerves grossly intact. No facial asymmetry DERMATOLOGICAL: Right foot wound with dressing. Details in nursing chart. INVESTIGATIONS, reviewed in the clinical context: 07/21/2023: White count 6.9 hemoglobin 10.8 platelets 193 sodium 133 potassium 5.7 BUN 6615 2.14 EKG tracing personally reviewed by me-sinus tachycardia. Some ST-T wave changes. Chest x-ray film personally reviewed by me-cardiomegaly. Some venous prominence Assessment and plan: -Acute on chronic congestive heart failure nonischemic cardiomyopathy systolic dysfunction EF less than 20%: Worsening from missed hemodialysis.: Slow to respond IV Lasix 80 mg every 12. Hemodialysis. AICD. Fluid restriction 1500 mL. Being followed by cardiology and nephrology -Acute hypoxic respiratory failure from fluid overload/CHF.: Improved Placed on BiPAP last night in the ER. Untreated room air -Acute on chronic recurrent right lower leg cellulitis, infected right heel diabetic ulcer with prior history of debridement. Has been told multiple times about surgery. Wound swab for Gram stain and culture. Proteus vulgaris, Streptococcus agalactiae group B-previously IV cefepime and IV daptomycin Patient has not healed with antibiotics and debridement alone. Does need amputation as discussed previously with Dr. Lugo. Patient has repeatedly turned on surgery as he has not been able to make a decision pEnding amputation tomorrow - COPD in a previous smoker Ventolin. Zelaya. -Diabetes mellitus type 2 chronically on insulin, uncontrolled with [id number] Levemir 18 units subcu Diabetic diet. Accu-Cheks and sliding scale -Hyperlipidemia Lipitor -Chronic kidney disease stage III from diabetic nephropathy and nephrosclerosis Baseline creatinine of 1.2 on May 14. -Hemodialysis dependent acute kidney injury with severe volume on board. Patient has been noncompliant with dialysis. Follow with nephrology -Hyponatremia-mild Fluid restriction -Chronic low back pain. Patient's had pain on and off for about 10 years. Has had prior surgery. Does not remember who did the surgery. topical lidocaine patch. -Essential hypertension Lopressor -Obstructive sleep apnea sometimes uses CPAP machine -Diabetic peripheral neuropathy -Anxiety Ativan when necessary -DJD Tylenol when necessary -AICD -Lower extremity chronic venous insufficiency -Full code Amputation scheduled for Saturday. Reduce dose of insulin
[2023-07-26] MEDS ORDERED: ALBUTEROL HFA INHALER INHALATION PRN (01:12)
[2023-07-26] MEDS: HYDROcodone/APAP 5-325MG 1 EACH TAB PO PRN ×4 (01:22→23:03)
[2023-07-26] MEDS: traZODone HCL 50 MG TAB PO PRN ×2 (01:22→23:05)
[2023-07-26] MEDS: HYDROmorphone 0.5 MG/0.5 ML SYRINGE IVP PRN ×3 (03:16→23:05)
[2023-07-26 05:16] LABS: ALT 18 U/L (4-49); AST 29 U/L (17-59); African American GFR (CKD) 35 (>60 ml/min/1.73 sqM); Albumin 2.9 g/dL (3.5-5.0); Alkaline Phosphatase 150 U/L (38-126); Anion Gap 13 mmol/L; Blood Urea Nitrogen 48 mg/dL (9-20); Calcium 8.3 mg/dL (8.4-10.2); Carbon Dioxide 22 mmol/L (22-30); Chloride 97 mmol/L (98-107); Glucose 67 mg/dL (74-99); Non-African American GFR(CKD) 30 (>60 ml/min/1.73 sqM); Potassium 4.1 mmol/L (3.5-5.1); Sodium 132 mmol/L (137-145); Total Bilirubin 0.7 mg/dL (0.2-1.3); Total Protein 6.3 g/dL (6.3-8.2)
[2023-07-26] MEDS: metroNIDAZOLE 500 MG TAB PO SCH ×3 (05:26→23:03)
[2023-07-26] MEDS: HEPARIN SODIUM,PORCINE 5,000 UNIT/ML 1 ML VIAL SQ SCH ×3 (05:26→23:05)
[2023-07-26 05:29] LABS: Anisocytosis Slight; Basophils # (A) 0.1 k/uL (0-0.2); Basophils % (A) 1 %; Eosinophils # (A) 0.4 k/uL (0-0.7); Eosinophils % (A) 4 %; HCT 32.1 % (39.0-53.0); HGB 9.7 gm/dL (13.0-17.5); Hypochromasia Marked; Lymphocytes # (A) 1.4 k/uL (1.0-4.8); Lymphocytes % (A) 13 %; MCH 27.8 pg (25.0-35.0); MCHC 30.3 g/dL (31.0-37.0); MCV 91.9 fL (80.0-100.0); Mean Platelet Volume 8.8; Monocytes # (A) 0.9 k/uL (0-1.0); Monocytes % (A) 8 %; Neutrophils % (A) 72 %; Platelet Count 204 k/uL (150-450); RDW 16.9 % (11.5-15.5)
[2023-07-26] MEDS: DEXTROSE 50% SYRINGE 50 ML IVP PRN ×2 (06:14→15:52)
[2023-07-26 06:17] LABS: Glucose,Whole Blood 61 mg/dL (70-110)
[2023-07-26] MEDS: MIDODRINE 5 MG TAB PO SCH ×3 (06:17→17:07)
[2023-07-26] MEDS: INSULIN ASPART (NovoLOG) 100 UNIT/ML VIAL SQ SCH ×3 (06:17→17:02)
[2023-07-26 06:43] LABS: Glucose,Whole Blood 100 mg/dL (70-110)
[2023-07-26] MEDS: MIDODRINE 5 MG TAB PO PRN (07:48)
[2023-07-26] MEDS: ALPRAZolam 0.5 MG TAB PO PRN ×2 (07:48→19:51)
[2023-07-26] MEDS ORDERED: LACTATED RINGERS 1,000 ML IV ONE (08:06)
[2023-07-26] MEDS: ALBUTEROL HFA INHALER INHALATION SCH ×4 (09:30→20:59)
[2023-07-26] MEDS: FOLIC ACID 1 MG TAB PO SCH (09:51)
[2023-07-26] MEDS: ASCORBIC ACID 500 MG TAB PO SCH (09:51)
[2023-07-26] MEDS: ZINC SULFATE 220 MG CAP PO SCH (09:51)
[2023-07-26] MEDS: THIAMINE 100 MG TAB PO SCH (09:51)
[2023-07-26] MEDS: MULTIVITAMINS, THERA 1 EACH TAB PO SCH (09:52)
[2023-07-26 11:29] LABS: Glucose,Whole Blood 51 mg/dL (70-110)
[2023-07-26] MEDS: DULoxetine HCL 30 MG CAPSULE.DR PO SCH (11:36)
[2023-07-26] MEDS: ASPIRIN 81 MG PO SCH (11:36)
[2023-07-26] MEDS: METOPROLOL TARTRATE 25 MG TAB PO SCH ×2 (11:37→19:50)
[2023-07-26] MEDS: FUROSEMIDE 10 MG/ML 10 ML VIAL IV SCH ×2 (11:37→19:53)
[2023-07-26] MEDS: QUEtiapine 25 MG TAB PO SCH ×2 (11:37→19:50)
[2023-07-26] MEDS: FAMOTIDINE 20 MG TAB PO SCH (11:37)
[2023-07-26 11:44] LABS: Glucose,Whole Blood 154 mg/dL (70-110)
--- NOTE | 2023-07-26 11:53 | P.PN ---
Subjective HISTORY OF PRESENT ILLNESS: This is a 52-year-old male with a past medical history significant for nonischemic cardiomyopathy, AICD implantation, nonsustained ventricular tachycardia, hypertension, hyperlipidemia, COPD, nicotine dependence, diabetes and right-sided foot diabetic ulcer. Patient follows in the office with Dr. Abbasi. We have been asked to see the patient in consultation for preoperative clearance. Patient examined at the bedside. Patient has been evaluated by vascular surgery with recommendations for right-sided [id number] amputation. Patient has refused amputation previously however he has decided to proceed with amputation now. The patient denies any chest pain or pressure. He denies shortness of breath. He is currently receiving hemodialysis at the time of examination. * EKG reveals sinus mechanism with heart rate of 116. * Chest xray moderate cardiomegaly and interstitial changes along with Иван B lines. Correlate for developing interstitial pulmonary edema * Current home cardiac medications include torsemide 40 mg daily, Midodrine 10 mg 3 times a day, metoprolol tartrate 25 mg twice a day, aspirin 81 mg daily * Most recent echocardiogram obtained in June 2022 revealed ejection fraction less than 20%, severe pulmonary hypertension, moderate to severe mitral regurgitation, moderate tricuspid regurgitation * Cardiac catheterization history: February 2018 revealing minimal coronary artery disease 07/25/2023 Patient examined this morning. Patient is sitting up in a chair. Patient currently denies chest pain or pressure. He denies shortness of breath. He complains of pain that is not well controlled on current regimen. He also reports scrotal edema this morning and is having a hard time getting comfortable in the chair because of this. 07/26/2023 Patient examined this morning. Patient is currently undergoing hemodialysis. No complaints of chest pain or pressure. He continues to report generalized discomfort. He is scheduled for right AKA today. Vital signs are stable. PHYSICAL EXAM: VITAL SIGNS: Reviewed. GENERAL: Well-developed in no acute distress. HEENT: Head is normocephalic. Pupils are equal, round. Sclerae anicteric. Mucous membranes of the mouth are moist. Neck supple. No JVD or thyromegaly LUNGS: Respirations even and unlabored. Lungs essentially clear to auscultation bilaterally. HEART: Regular rate and rhythm. S1 and S2 heard. Systolic murmur noted. ABDOMEN: Soft. Nondistended. Nontender. EXTREMITIES: Normal range of motion. No clubbing or cyanosis. Peripheral pulses intact. 3+ bilateral lower extremity edema. NEUROLOGIC: Awake and alert. Oriented x 3. ASSESSMENT: Right foot wound, scheduled to undergo right [id number] amputation Nonischemic cardiomyopathy History of AICD implantation Acute on chronic heart failure with reduced ejection fraction History of nonsustained ventricular tachycardia Hyperlipidemia Diabetes Chronic kidney disease on hemodialysis Nicotine dependence History of medication noncompliance Hypotension, maintained on Midodrine outpatient, unable to tolerate BALBINA/ARB PLAN: Continue current cardiac medications Continue to monitor blood pressure Hemodialysis per nephrology Patient scheduled for right AKA today with vascular surgery Patient is at intermediate to high risk to undergo surgery from a cardiac standpoint. There are no absolute contraindications for patient to proceed. Further recommendations pending patient's course We will sign off. Please reconsult if needed. Nurse practitioner note has been reviewed by physician. Signing provider agrees with the documented findings, assessment, and plan of care. Objective - Vital Signs Vital signs: Vital Signs Temp 97.0 F L 07/26/23 11:19 Pulse 80 07/26/23 11:19 Resp 18 07/26/23 11:19 BP 102/67 07/26/23 11:19 Pulse Ox 96 07/26/23 11:19 FiO2 30 07/20/23 14:29 Intake & Output 07/25/23 07/26/23 07/26/23 18:59 06:59 18:59 Intake Total 580 20 Output Total 2701 Balance -2120 20 Weight 115 kg 112.2 kg Intake: IV 20 Invasive Line 2 10 Invasive Line 4 10 Oral 180 Hemodialysis 400 Output: Urine 1 Hemodialysis 2700 Other: Voiding Method Bedside Commode Bedside Commode Bedside Commode Urinal Urinal Urinal # Voids 3 - Labs CBC & Chem 7: 07/26/23 04:07 07/26/23 04:07 Labs: Abnormal Lab Results - Last 24 Hours (Table) 07/25/23 07/25/23 07/25/23 Range/Units 16:45 20:20 21:27 WBC (3.8-10.6) k/uL RBC (4.30-5.90) m/uL Hgb (13.0-17.5) gm/dL Hct (39.0-53.0) % MCHC (31.0-37.0) g/dL RDW (11.5-15.5) % Neutrophils # (1.3-7.7) k/uL Sodium (137-145) mmol/L Chloride (98-107) mmol/L BUN (9-20) mg/dL Creatinine (0.66-1.25) mg/dL Glucose (74-99) mg/dL POC Glucose (mg/dL) 67 L 140 H (70-110) mg/dL Calcium (8.4-10.2) mg/dL Alkaline Phosphatase (38-126) U/L Albumin (3.5-5.0) g/dL SARS-CoV-2 (PCR) Detected A (Not Detectd) 07/26/23 07/26/23 07/26/23 Range/Units 04:07 04:07 06:06 WBC 11.0 H (3.8-10.6) k/uL RBC 3.50 L (4.30-5.90) m/uL Hgb 9.7 L (13.0-17.5) gm/dL Hct 32.1 L (39.0-53.0) % MCHC 30.3 L (31.0-37.0) g/dL RDW 16.9 H (11.5-15.5) % Neutrophils # 8.0 H (1.3-7.7) k/uL Sodium 132 L (137-145) mmol/L Chloride 97 L (98-107) mmol/L BUN 48 H (9-20) mg/dL Creatinine 2.34 H (0.66-1.25) mg/dL Glucose 67 L (74-99) mg/dL POC Glucose (mg/dL) 61 L (70-110) mg/dL Calcium 8.3 L (8.4-10.2) mg/dL Alkaline Phosphatase 150 H (38-126) U/L Albumin 2.9 L (3.5-5.0) g/dL SARS-CoV-2 (PCR) (Not Detectd) 07/26/23 07/26/23 Range/Units 11:28 11:42 WBC (3.8-10.6) k/uL RBC (4.30-5.90) m/uL Hgb (13.0-17.5) gm/dL Hct (39.0-53.0) % MCHC (31.0-37.0) g/dL RDW (11.5-15.5) % Neutrophils # (1.3-7.7) k/uL Sodium (137-145) mmol/L Chloride (98-107) mmol/L BUN (9-20) mg/dL Creatinine (0.66-1.25) mg/dL Glucose (74-99) mg/dL POC Glucose (mg/dL) 51 L 154 H (70-110) mg/dL Calcium (8.4-10.2) mg/dL Alkaline Phosphatase (38-126) U/L Albumin (3.5-5.0) g/dL SARS-CoV-2 (PCR) (Not Detectd) Microbiology - Last 24 Hours (Table) 07/23/23 11:00 Blood Culture - Preliminary Blood 07/23/23 10:43 Blood Culture - Preliminary Blood
[2023-07-26] MEDS ORDERED: SODIUM CHLORIDE 0.9% 1,000 ML IV ONE ×2 (11:55→12:00)
--- NOTE | 2023-07-26 12:07 | P.PN ---
Subjective Patient is seen in follow-up for acute kidney injury, hemodialysis dependent. Has been undergoing daily hemodialysis due to severe volume overload. Tolerating dialysis well. Resting in bed. Vital signs are stable. Blood pressure on the lower side. General: No acute distress. HEENT: Head exam is unremarkable. LUNGS: Scattered rhonchi. HEART: Rate and Rhythm are regular. ABDOMEN: Nontender. EXTREMITITES: Lower extremities wrapped. 2+ edema. Objective - Vital Signs Vital signs: Vital Signs Temp 97.0 F L 07/26/23 11:19 Pulse 80 07/26/23 11:19 Resp 18 07/26/23 11:19 BP 102/67 07/26/23 11:19 Pulse Ox 96 07/26/23 11:19 FiO2 30 07/20/23 14:29 Intake & Output 07/25/23 07/26/23 07/26/23 18:59 06:59 18:59 Intake Total 580 20 Output Total 2701 Balance -2121 20 Weight 115 kg 112.2 kg Intake: IV 20 Invasive Line 2 10 Invasive Line 4 10 Oral 180 Hemodialysis 400 Output: Urine 1 Hemodialysis 2700 Other: Voiding Method Bedside Commode Bedside Commode Bedside Commode Urinal Urinal Urinal # Voids 3 - Labs CBC & Chem 7: 07/26/23 04:07 07/26/23 04:07 Labs: Abnormal Lab Results - Last 24 Hours (Table) 07/25/23 07/25/23 07/25/23 Range/Units 16:45 20:20 21:27 WBC (3.8-10.6) k/uL RBC (4.30-5.90) m/uL Hgb (13.0-17.5) gm/dL Hct (39.0-53.0) % MCHC (31.0-37.0) g/dL RDW (11.5-15.5) % Neutrophils # (1.3-7.7) k/uL Sodium (137-145) mmol/L Chloride (98-107) mmol/L BUN (9-20) mg/dL Creatinine (0.66-1.25) mg/dL Glucose (74-99) mg/dL POC Glucose (mg/dL) 67 L 140 H (70-110) mg/dL Calcium (8.4-10.2) mg/dL Alkaline Phosphatase (38-126) U/L Albumin (3.5-5.0) g/dL SARS-CoV-2 (PCR) Detected A (Not Detectd) 07/26/23 07/26/23 07/26/23 Range/Units 04:07 04:07 06:06 WBC 11.0 H (3.8-10.6) k/uL RBC 3.50 L (4.30-5.90) m/uL Hgb 9.7 L (13.0-17.5) gm/dL Hct 32.1 L (39.0-53.0) % MCHC 30.3 L (31.0-37.0) g/dL RDW 16.9 H (11.5-15.5) % Neutrophils # 8.0 H (1.3-7.7) k/uL Sodium 132 L (137-145) mmol/L Chloride 97 L (98-107) mmol/L BUN 48 H (9-20) mg/dL Creatinine 2.34 H (0.66-1.25) mg/dL Glucose 67 L (74-99) mg/dL POC Glucose (mg/dL) 61 L (70-110) mg/dL Calcium 8.3 L (8.4-10.2) mg/dL Alkaline Phosphatase 150 H (38-126) U/L Albumin 2.9 L (3.5-5.0) g/dL SARS-CoV-2 (PCR) (Not Detectd) 07/26/23 07/26/23 Range/Units 11:28 11:42 WBC (3.8-10.6) k/uL RBC (4.30-5.90) m/uL Hgb (13.0-17.5) gm/dL Hct (39.0-53.0) % MCHC (31.0-37.0) g/dL RDW (11.5-15.5) % Neutrophils # (1.3-7.7) k/uL Sodium (137-145) mmol/L Chloride (98-107) mmol/L BUN (9-20) mg/dL Creatinine (0.66-1.25) mg/dL Glucose (74-99) mg/dL POC Glucose (mg/dL) 51 L 154 H (70-110) mg/dL Calcium (8.4-10.2) mg/dL Alkaline Phosphatase (38-126) U/L Albumin (3.5-5.0) g/dL SARS-CoV-2 (PCR) (Not Detectd) Microbiology - Last 24 Hours (Table) 07/23/23 11:00 Blood Culture - Preliminary Blood 07/23/23 10:43 Blood Culture - Preliminary Blood Assessment and Plan Plan: Assessment: 1. Acute kidney injury, hemodialysis dependent. Has permacath. Maintain on hemodialysis on Saturday schedule outpatient. 2. Chronic kidney disease stage IV secondary to diabetic kidney disease ca rdiorenal syndrome. 3. Acute on chronic systolic CHF ejection fraction of less than 20%. 4. Volume overload. 5. Right lower extremity wound on IV antibiotics. Refused inpatient in the past. 6. Chronic hypotension maintained on midodrine. 7. Diabetes mellitus. 8. Anemia of chronic kidney disease. Rule out iron deficiency. Plan: Currently seen while undergoing hemodialysis. Another treatment tomorrow. Maintain IV Lasix. Check iron studies. Maintain fluid restriction.
[2023-07-26 12:19] LABS: Glucose,Whole Blood 97 mg/dL (70-110)
[2023-07-26] MEDS ORDERED: MIDAZOLAM 2 MG/2 ML VIAL IVP ONE ×2 (12:48→12:53)
[2023-07-26] MEDS ORDERED: GLYCOPYRROLATE 0.2 MG/ML 2 ML VIAL ONE (13:14)
[2023-07-26] MEDS ORDERED: SODIUM BICARB 8.4% 50 ML SYR (1 MEQ/ML) ONE (13:14)
[2023-07-26] MEDS ORDERED: PHENYLEPHRINE-0.9% NACL SYG 1,000 MCG/10 ML SYRINGE ONE (13:14)
[2023-07-26] MEDS ORDERED: LIDOCAINE 1% INJ 10MG/ML (20 ML MDV) ONE (13:14)
[2023-07-26] MEDS ORDERED: ONDANSETRON 4 MG/2 ML VIAL ONE (13:14)
[2023-07-26] MEDS ORDERED: SODIUM CHLORIDE 0.9% (PF) 10 ML VIAL ONE (13:14)
[2023-07-26] MEDS ORDERED: KETAMINE HCL IN 0.9 % NACL 50 MG/5 ML SYRINGE ONE (13:14)
[2023-07-26] MEDS ORDERED: CALCIUM CHLORIDE 100 MG/ML 10 ML SYRINGE ONE (13:14)
[2023-07-26] MEDS ORDERED: ROPIVACAINE 5 MG/ML 30 ML VIAL ONE (13:14)
[2023-07-26] MEDS ORDERED: ETOMIDATE 2 MG/ML 10 ML VIAL ONE (13:14)
[2023-07-26] MEDS ORDERED: SODIUM CHLORIDE 0.9% 100 ML with ceFAZolin 2,000 MG IV ONE ×2 (13:19)
--- NOTE | 2023-07-26 14:41 | P.ANPRN ---
Procedure Note - Anesthesia - Nerve Block Performed Right Other (see comment) Single Time Out Performed: Yes (Right Femoral N. block ) Date of Procedure: 07/26/23 Procedure Start Time: 12:53 Procedure Stop Time: 12:58 Location of Patient: PreOp Indication: Acute Post-Operative Pain, Analgesia, Requested by Surgeon Sedation Type: Sedate with meaningful contact maintained Preparation: Sterile Prep Position: Supine Catheter: None Needle Types: Pajunk Needle Gauge: 21 Ultrasound used to visualize needle placement: Yes Ultrasound used to observe medication spread: Yes Injectate: 0.5% Ropivacaine (see comment for volume) (Ropiv 10ml+NS 5ml) Blood Aspirated: No Pain Paresthesia on Injection Noted: No Resistance on Injection: Normal Image Stored and Saved: Yes Events: Uneventful and Well Tolerated
--- NOTE | 2023-07-26 14:44 | P.ANPRN ---
Procedure Note - Anesthesia - Nerve Block Performed Right Other (see comment) Single Time Out Performed: Yes (Right Sciatic N. block at buttock level) Date of Procedure: 07/26/23 Procedure Start Time: 12:59 Procedure Stop Time: 13:05 Location of Patient: PreOp Indication: Acute Post-Operative Pain, Analgesia, Requested by Surgeon Sedation Type: Sedate with meaningful contact maintained Preparation: Sterile Prep Position: Left Lateral Catheter: None Needle Types: Pajunk (]]) Needle Gauge: 21 Ultrasound used to visualize needle placement: Yes Ultrasound used to observe medication spread: Yes Injectate: 0.5% Ropivacaine (see comment for volume) (Ropiv 10ml+ NS5 ml) Blood Aspirated: No Pain Paresthesia on Injection Noted: No Resistance on Injection: Normal Image Stored and Saved: Yes Events: Uneventful and Well Tolerated
--- NOTE | 2023-07-26 14:46 | P.ANPRN ---
Procedure Note - Anesthesia - Invasive Line Left Arterial Line Time Out Performed: Yes Date of Procedure: 07/26/23 Time of Procedure: 12:48 Location of Patient: PreOp Preparation: Sterile Prep Arterial Line Location: Radial Ultrasound Used: Yes Purpose - Visualization and Identification of Vasculature: Yes Image Stored and Saved: Yes Narrative: Central line placement per sterile protocol utilized.
[2023-07-26] MEDS ORDERED: HYDROmorphone 0.5 MG/0.5 ML SYRINGE IVP ONE ×2 (15:36→16:06)
[2023-07-26 15:50] LABS: Glucose,Whole Blood 57 mg/dL (70-110)
[2023-07-26 15:59] LABS: % Iron Saturation 13.18 (15.00-50.00)
[2023-07-26 16:03] LABS: Glucose,Whole Blood 87 mg/dL (70-110)
--- NOTE | 2023-07-26 16:20 | P.PCN ---
Description of Procedure: Preoperative diagnosis gangrene of the right foot involving the heel and plantar aspect the foot with exposed calcaneus bone and necrotic tendocalcaneus of the right foot with marked cellulitis of the lower extremity Postop same Procedure right above-knee amputation this patient was brought to the operating room. Right leg was prepped and draped applied in standard manner. Anterior flap incision was made deepened through skin fat and fascia anterior compartment muscles were divided. After that incision was extended to the medial aspect of the thigh debridement through skin fat and fascia dissection carried out to identify the medial compartment muscles which were divided. Did the common femoral artery and popliteal vein proximally and distally ligated and closed with the hope Prolene. We made a incision extended for the lateral compartment muscles there were divided. Area stimulator was used to elevate the periosteum femur was divided. Then the posterior compartment muscles were divided. Sherrick nerve was identified and divided retraction and a closed with the 4-0 Prolene. Wound was irrigated with her duplex side and saline. Hemostasis well controlled. Anterior and posterior compartment muscles were approximated with the 0 Vicryl with interrupted suture. Then we approximated the fascia with interrupted suture using 0 Vicryl. Then skin was closed with 2-0 nylon with mattress interrupted suture pressure dressing applied patient are to the procedure well blood loss was about 200 mL dressing applied patient tolerated the procedure well and transferred to the recovery satisfactory condition
[2023-07-26 16:50] LABS: Glucose,Whole Blood 99 mg/dL (70-110)
[2023-07-26] MEDS: ACETAMINOPHEN TAB 325 MG TAB PO PRN (17:06)
[2023-07-26] MEDS: DAPTOmycin 500 MG in SODIUM CHLORIDE 0.9% 50 ML IVPB SCH (19:51)
[2023-07-26 19:52] LABS: Glucose,Whole Blood 185 mg/dL (70-110)
--- NOTE | 2023-07-26 21:13 | P.PN ---
Progress Note - Text Progress Note Date: 07/26/23 Chief Complaint: Short of breath This is a 53-year-old patient, follows with Dr. Rodríguez. Chronic stable medical condition include CHF EF less than 20%, COPD, diabetes mellitus type 2, hypertension, hyperlipidemia, obstructive sleep apnea, anxiety, AICD, lower extremity venous insufficiency. Patient had lower extremity wounds and has been followed by ID and Dr. Lugo from vascular. in the hospital from May 14 through May 29. Patient had worsening wound after right foot. has been told multiple times to Dr. Lugo to proceed with amputation. Last admission he also was on IV Bumex drip and dobutamine drip for congestive heart failure. Was discharged home on antibiotics. Admitted from June 05 through June 10. Presented again with worsening wound. malodorous drainage. Denies fever and chills. Tired. Does not want surgery. Reluctant. And/or nystagmus and need for the same. It was explained to her that antibiotics are not helping. Patient was seen by cardiology Dr. Lugo from vascular. Patient readmitted on June 16 and on July 04. I seen the patient on June 16 admission. Patient initially agreed for amputation then declined the same. Patient discharged July 09. Patient now presents to ER with increasing shortness of breath. Mrs. dialysis on Saturday and because they will have right. He did go to dialysis yesterday and for short time then sent to the ER. Significant edema. Does make urine. Some cough. No fever no chills. Eating fair. Patient was dialyzed last night in the ER. Also placed on BiPAP. 07/22/2023: Patient had bleeding from right heel wound. Vascular Dr. Lugo consulted. Breathing better. Chronic stable dialysis tomorrow. Eating fair 07/23/2023: Right heel in the dressing. Discussed with Dr. Lugo. Amputation would be the only option. Discussed with the patient. Is not sure again. Getting dialyzed today. Eating well 07/24/2023: Had a very lengthy discussion with the patient today. He does understand he is being postponing surgery for a very long time. Reemphasized that his overall condition is getting much worse including not being on dialysis and recurrent infections in the leg. Patient has decided to proceed with amputation. I called Dr. Lugo. Spoke to the patient. Cardiology was again consulted for the clearance for the same. Patient now being scheduled for this coming Saturday. Total time spent today about 70 minutes with over 45 minutes of discussion. Discussed with ID. Current antibiotics to continue. 07/25/2023: On the recliner. Patient is ready for amputation tomorrow. No new issues. Discussed. 07/26/2023: Laying in bed watching television. Some pain in the right leg stump. Had above amputation by Dr. Lugo on the right side today. Active Medications Acetaminophen (Acetaminophen Tab 325 Mg Tab) 650 mg PO Q6HR PRN PRN Reason: Mild Pain or Fever > 100.5 Last Admin: 07/26/23 17:06 Dose: 650 mg Hydrocodone Bitart/Acetaminophen (Hydrocodone/Apap 5-325mg 1 Each Tab) 1 each PO Q6HR PRN PRN Reason: Pain Last Admin: 07/26/23 17:06 Dose: 1 each Albuterol Sulfate (Albuterol Hfa Inhaler) 2 puff INHALATION RT-QID [facility] Last Admin: 07/26/23 20:59 Dose: Not Given Albuterol Sulfate (Albuterol Hfa Inhaler) 2 puff INHALATION RT-QID PRN PRN Reason: Shortness Of Breath Or Wheezing Alprazolam (Alprazolam 0.5 Mg Tab) 0.5 mg PO Q8HR PRN PRN Reason: Anxiety Last Admin: 07/26/23 19:51 Dose: 0.5 mg Ascorbic Acid (Ascorbic Acid 500 Mg Tab) 1,000 mg PO DAILY [facility] Last Admin: 07/26/23 09:51 Dose: Not Given Aspirin (Aspirin 81 Mg) 81 mg PO DAILY [facility] Last Admin: 07/26/23 11:36 Dose: Not Given Dextrose/Water (Dextrose 50% Syringe 50 Ml) 25 ml IVP PER PROTOCOL PRN; Protocol PRN Reason: Hypoglycemia Last Admin: 07/26/23 15:52 Dose: 25 ml Dextrose/Water (Dextrose 50% Syringe 50 Ml) 50 ml IVP PER PROTOCOL PRN; Protocol PRN Reason: Hypoglycemia Last Admin: 07/26/23 11:30 Dose: 50 ml Duloxetine HCl (Duloxetine Hcl 30 Mg Capsule.Dr) 30 mg PO DAILY [facility] Last Admin: 07/26/23 11:36 Dose: Not Given Famotidine (Famotidine 20 Mg Tab) 20 mg PO DAILY [facility] Last Admin: 07/26/23 11:37 Dose: Not Given Fluphenazine HCl (Fluphenazine 1 Mg Tab) 3 mg PO [facility] Last Admin: 07/26/23 19:50 Dose: 3 mg Folic Acid (Folic Acid 1 Mg Tab) 1 mg PO DAILY [facility] Last Admin: 07/26/23 09:51 Dose: Not Given Furosemide (Furosemide 10 Mg/Ml 10 Ml Vial) 80 mg IV Q12HR [facility] Last Admin: 07/26/23 19:53 Dose: 80 mg Heparin Sodium (Porcine) (Heparin Sodium,Porcine 5,000 Unit/Ml 1 Ml Vial) 5,000 unit SQ TID@0700,1500,2300 [facility] Last Admin: 07/26/23 13:41 Dose: Not Given Hydromorphone HCl (Hydromorphone 0.5 Mg/0.5 Ml Syringe) 0.5 mg IVP Q6HR PRN PRN Reason: Pain Last Admin: 07/26/23 17:09 Dose: 0.5 mg Cefepime HCl 1 gm/ Sodium (Chloride) 50 mls @ 12.5 mls/hr IVPB [facility] Last Admin: 07/25/23 21:12 Dose: 12.5 mls/hr Daptomycin 500 mg/ Sodium (Chloride) 50 mls @ 100 mls/hr IVPB Q48H [facility] Last Admin: 07/26/23 19:51 Dose: 100 mls/hr Insulin Aspart (Insulin Aspart (Novolog) 100 Unit/Ml Vial) 0 unit SQ [facility]; Protocol Last Admin: 07/26/23 17:02 Dose: Not Given Insulin Detemir (Insulin Detemir (Levemir) 100 Unit/Ml Syr) 18 unit SQ [facility] Lactulose (Lactulose 20 Gm/30 Ml Cup) 20 gm PO DAILY PRN PRN Reason: Constipation Metoprolol Tartrate (Metoprolol Tartrate 25 Mg Tab) 25 mg PO BID [facility] Last Admin: 07/26/23 19:50 Dose: 25 mg Metronidazole (Metronidazole 500 Mg Tab) 500 mg PO TID@0700,1500,2300 [facility]; Protocol Last Admin: 07/26/23 17:07 Dose: 500 mg Midodrine (Midodrine 5 Mg Tab) 10 mg PO TID@0730,1100,1600 [facility] Last Admin: 07/26/23 17:07 Dose: 10 mg Midodrine (Midodrine 5 Mg Tab) 10 mg PO DAILY PRN PRN Reason: Blood Pressure - Low Last Admin: 07/26/23 07:48 Dose: 10 mg Multivitamins (Multivitamins, Thera 1 Each Tab) 1 each PO DAILY [facility] Last Admin: 07/26/23 09:52 Dose: Not Given Naloxone HCl (Naloxone 0.4 Mg/Ml 1 Ml Vial) 0.2 mg IV Q2M PRN PRN Reason: Opioid Reversal Olanzapine (Olanzapine 5 Mg Tab) 5 mg PO TID PRN PRN Reason: Agitation Last Admin: 07/25/23 02:49 Dose: 5 mg Quetiapine Fumarate (Quetiapine 25 Mg Tab) 12.5 mg PO BID PRN PRN Reason: Agitation Quetiapine Fumarate (Quetiapine 25 Mg Tab) 12.5 mg PO BID [facility] Last Admin: 07/26/23 19:50 Dose: 12.5 mg Silver Sulfadiazine (Silver Sulfadiazine 1% Cream 25 Gm Tube) 1 applic TOPICAL BID@0800,1700 [facility]; Protocol Last Admin: 07/26/23 17:17 Dose: Not Given Thiamine HCl (Thiamine 100 Mg Tab) 100 mg PO DAILY [facility] Last Admin: 07/26/23 09:51 Dose: Not Given Trazodone HCl (Trazodone Hcl 50 Mg Tab) 50 mg PO HS PRN PRN Reason: Insomnia Last Admin: 07/26/23 01:22 Dose: 50 mg Zinc Sulfate (Zinc Sulfate 220 Mg Cap) 220 mg PO DAILY [facility] Last Admin: 07/26/23 09:51 Dose: Not Given Social history: Lives with his 20-year-old son. Disabled. 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 Smoking 2 packs a day for most of his life . Stop drinking heavy alcohol about 20 years ago. Has done marijuana. Physical examination: VITAL SIGNS: 98.8, 1 or 2, 17, 102/70, 93% room air GENERAL: Laying in bed EYES: Pupils equal. Conjunctiva normal. HEENT: External appearance of nose and ears normal, oral cavity grossly normal. NECK: JVD unable to assess; masses not palpable. HEART: First and second heart sounds are normal; significant edema LUNGS: Respiratory rate increased; diminished breath sounds ABDOMEN: Soft, nontender, liver spleen not palpable, no masses palpable. Scrotal swelling PSYCH: Alert and oriented x3; mood and affect anxious. NEUROLOGICAL: Cranial nerves grossly intact. No facial asymmetry DERMATOLOGICAL: Above knee amputation with a dressing of the stump INVESTIGATIONS, reviewed in the clinical context: 07/21/2023: White count 6.9 hemoglobin 10.8 platelets 193 sodium 133 potassium 5.7 BUN 6615 2.14 EKG tracing personally reviewed by me-sinus tachycardia. Some ST-T wave changes. Chest x-ray film personally reviewed by me-cardiomegaly. Some venous prominence Assessment and plan: -Acute on chronic congestive heart failure nonischemic cardiomyopathy systolic dysfunction EF less than 20%: Worsening from missed hemodialysis.: Slow to respond IV Lasix 80 mg every 12. Hemodialysis. AICD. Fluid restriction 1500 mL. Being followed by cardiology and nephrology -Acute hypoxic respiratory failure from fluid overload/CHF.: Improved Placed on BiPAP last night in the ER. room air -Acute on chronic recurrent right lower leg cellulitis, infected right heel diabetic ulcer with prior history of debridement. Has been told multiple times about surgery. Wound swab for Gram stain and culture. Proteus vulgaris, Streptococcus agalactiae group B-previously IV cefepime and IV daptomycin Patient has not healed with antibiotics and debridement alone. Does need amputation as discussed previously with Dr. Lugo. Patient has repeatedly turned on surgery as he has not been able to make a decision Right above-knee amputation by Dr. Yared Lugo on June 2019. - COPD in a previous smoker Ventolin. DuoNeb. -Diabetes mellitus type 2 chronically on insulin, uncontrolled with [id number] Levemir 18 units subcu Diabetic diet. Accu-Cheks and sliding scale -Hyperlipidemia Lipitor -Chronic kidney disease stage III from diabetic nephropathy and nephrosclerosis Baseline creatinine of 1.2 on May 14. -Hemodialysis dependent acute kidney injury with severe volume on board. Patient has been noncompliant with dialysis. Follow with nephrology -Hyponatremia-mild Fluid restriction -Chronic low back pain. Patient's had pain on and off for about 10 years. Has had prior surgery. Does not remember who did the surgery. topical lidocaine patch. -Essential hypertension Lopressor -Obstructive sleep apnea sometimes uses CPAP machine -Diabetic peripheral neuropathy -Anxiety Ativan when necessary -DJD Tylenol when necessary -AICD -Lower extremity chronic venous insufficiency -Full code Status post right above-knee amputation. Continue medications.
[2023-07-26] MEDS: CEFEPIME 1 GM in SODIUM CHLORIDE 0.9% 50 ML IVPB SCH (21:22)
[2023-07-26] MEDS: INSULIN DETEMIR (LEVEMIR) 100 UNIT/ML SYR SQ SCH (21:22)
[2023-07-27] MEDS: INSULIN ASPART (NovoLOG) 100 UNIT/ML VIAL SQ SCH ×5 (02:04→21:21)
[2023-07-27] MEDS: ACETAMINOPHEN TAB 325 MG TAB PO PRN (03:40)
[2023-07-27] MEDS: HYDROcodone/APAP 5-325MG 1 EACH TAB PO PRN ×4 (05:29→22:58)
[2023-07-27] MEDS: HYDROmorphone 0.5 MG/0.5 ML SYRINGE IVP PRN ×3 (05:29→19:09)
[2023-07-27 06:01] LABS: Glucose,Whole Blood 188 mg/dL (70-110)
[2023-07-27] MEDS: HEPARIN SODIUM,PORCINE 5,000 UNIT/ML 1 ML VIAL SQ SCH ×3 (06:39→21:22)
[2023-07-27] MEDS: MIDODRINE 5 MG TAB PO SCH ×3 (06:39→15:23)
[2023-07-27] MEDS: metroNIDAZOLE 500 MG TAB PO SCH ×3 (06:39→21:13)
[2023-07-27] MEDS: MULTIVITAMINS, THERA 1 EACH TAB PO SCH (08:11)
[2023-07-27] MEDS: ASPIRIN 81 MG PO SCH (08:11)
[2023-07-27] MEDS: QUEtiapine 25 MG TAB PO SCH ×2 (08:11→21:13)
[2023-07-27] MEDS: ZINC SULFATE 220 MG CAP PO SCH (08:11)
[2023-07-27] MEDS: FAMOTIDINE 20 MG TAB PO SCH (08:11)
[2023-07-27] MEDS: DULoxetine HCL 30 MG CAPSULE.DR PO SCH (08:11)
[2023-07-27] MEDS: FOLIC ACID 1 MG TAB PO SCH (08:11)
[2023-07-27] MEDS: THIAMINE 100 MG TAB PO SCH (08:11)
[2023-07-27] MEDS: ASCORBIC ACID 500 MG TAB PO SCH (08:14)
[2023-07-27] MEDS: ALPRAZolam 0.5 MG TAB PO PRN ×2 (08:27→22:58)
[2023-07-27] MEDS: ALBUTEROL HFA INHALER INHALATION SCH ×4 (09:40→18:10)
--- NOTE | 2023-07-27 09:59 | P.PN ---
Progress Note - Text Progress Note Date: 07/27/23 Adequate analgesia. Patient doing well. No anesthetic complication.
--- NOTE | 2023-07-27 10:54 | P.PN ---
Subjective Patient is seen in follow-up for acute kidney injury, hemodialysis dependent. Has been undergoing daily hemodialysis due to severe volume overload. Tolerating dialysis well. Resting in bed. Vital signs are stable. Blood pressure on the lower side. General: No acute distress. HEENT: Head exam is unremarkable. LUNGS: Scattered rhonchi. HEART: Rate and Rhythm are regular. ABDOMEN: Nontender. EXTREMITITES: Lower extremities wrapped. 2+ edema. Objective - Vital Signs Vital signs: Vital Signs Temp 99.0 F 07/27/23 08:00 Pulse 95 07/27/23 08:00 Resp 16 07/27/23 08:00 BP 93/54 07/27/23 08:00 Pulse Ox 94 L 07/27/23 09:41 FiO2 30 07/20/23 14:29 Intake & Output 07/26/23 07/27/23 07/27/23 18:59 06:59 18:59 Intake Total 1242 480 702 Output Total 3200 100 Balance -1958 380 702 Intake: IV 520 Invasive Line 2 10 Invasive Line 4 10 Oral 222 480 702 Hemodialysis 500 Output: Urine 500 100 Hemodialysis 2500 Estimated Blood Loss 200 Other: Voiding Method Bedside Commode Bedside Commode Urinal Urinal - Labs CBC & Chem 7: 07/26/23 04:07 07/26/23 04:07 Labs: Abnormal Lab Results - Last 24 Hours (Table) 07/26/23 07/26/23 07/26/23 Range/Units 04:07 11:28 11:42 POC Glucose (mg/dL) 51 L 154 H (70-110) mg/dL Iron 34 L (65-175) UG/DL % Saturation 13.18 L (15.00-50.00) Transferrin 184.0 L (204.0-354.0) mg/dL 07/26/23 07/26/23 07/27/23 Range/Units 15:47 19:46 05:56 POC Glucose (mg/dL) 57 L 185 H 188 H (70-110) mg/dL Iron (65-175) UG/DL % Saturation (15.00-50.00) Transferrin (204.0-354.0) mg/dL Microbiology - Last 24 Hours (Table) 07/23/23 11:00 Blood Culture - Preliminary Blood 07/23/23 10:43 Blood Culture - Preliminary Blood 07/20/23 21:25 Blood Culture - Final Blood Assessment and Plan Plan: Assessment: 1. Acute kidney injury, hemodialysis dependent. Has permacath. Maintain on hemodialysis on Saturday schedule outpatient. 2. Chronic kidney disease stage IV secondary to diabetic kidney disease cardiorenal syndrome. 3. Acute on chronic systolic CHF ejection fraction of less than 20%. 4. Volume overload. Improving with ultrafiltration. 5. Right lower extremity wound on IV antibiotics. Refused inpatient in the past. 6. Chronic hypotension maintained on midodrine. 7. Diabetes mellitus. 8. Anemia of chronic kidney disease. Iron deficiency noted. Plan: Currently seen while undergoing hemodialysis. Another treatment tomorrow. Change IV Lasix to torsemide. Add Aranesp. Hold off on IV iron due to acute infection. Maintain fluid restriction. Strongly advised patient to be compliant with hemodialysis treatments outpatient.
[2023-07-27 11:23] LABS: Glucose,Whole Blood 231 mg/dL (70-110)
[2023-07-27 11:46] LABS: African American GFR (CKD) 33 (>60 ml/min/1.73 sqM); Anion Gap 11 mmol/L; Blood Urea Nitrogen 41 mg/dL (9-20); Calcium 8.1 mg/dL (8.4-10.2); Carbon Dioxide 25 mmol/L (22-30); Chloride 97 mmol/L (98-107); Glucose 166 mg/dL (74-99); Non-African American GFR(CKD) 28 (>60 ml/min/1.73 sqM); Potassium 4.3 mmol/L (3.5-5.1); Sodium 133 mmol/L (137-145)
[2023-07-27 11:56] LABS: Anisocytosis Slight; Basophils # (A) 0.1 k/uL (0-0.2); Basophils % (A) 0 %; Eosinophils # (A) 0.2 k/uL (0-0.7); Eosinophils % (A) 1 %; HCT 27.5 % (39.0-53.0); HGB 8.7 gm/dL (13.0-17.5); Hypochromasia Moderate; Lymphocytes # (A) 1.3 k/uL (1.0-4.8); Lymphocytes % (A) 10 %; MCH 28.4 pg (25.0-35.0); MCHC 31.6 g/dL (31.0-37.0); Mean Platelet Volume 8.7; Monocytes # (A) 1.4 k/uL (0-1.0); Monocytes % (A) 10 %; Neutrophils # (A) 10.8 k/uL (1.3-7.7); Neutrophils % (A) 77 %; Platelet Count 259 k/uL (150-450); RBC 3.06 m/uL (4.30-5.90); RDW 17.4 % (11.5-15.5); WBC 14.1 k/uL (3.8-10.6)
[2023-07-27] MEDS ORDERED: DARBEPOETIN ALFA 40 MCG/0.4 ML SYRINGE SQ SCH (12:00)
--- NOTE | 2023-07-27 12:47 | P.PN ---
Progress Note - Text 53-year-old gentleman history of chronic renal failure on dialysis history of gangrene right foot patient had a right above-knee amputation done yesterday complaining of pain in the stump site dressing is dry and intact patient also has a superficial wound on the left lower extremity we've been treating with local wound care patient is an IV antibiotic stump dressing is dry and intact no drainage noted we will change her dressing on Saturday continue with IV antibiotic and pain management
--- NOTE | 2023-07-27 14:57 | P.PN ---
Subjective Progress Note Date: 07/26/23 Principal diagnosis: Reason for follow-up is right heel diabetic foot ulcer and osteomyelitis, positive blood culture Patient is a 53-year-old male with a past medical history significant for coronary artery disease COPD diabetes mellitus hypertension hyperlipidemia [place] sleep apnea end-stage renal disease on dialysis patient did have a chronic nonhealing wound to the right heel area with underlying osteomyelitis for the patient did have a multiple admission to this facility, patient did have issues with noncompliance recently signed out from [facility] and then subsequently did not show up for his dialysis and then presented to the hospital with worsening shortness of breath, The patient is status post right [id number] amputation completed on 07/26/2023. On today's evaluation that is 07/26/2023 the patient continues to be afebrile, the patient is hemodynamically stable he is breathing comfortably on the 2 L nasal cannula oxygen patient is recovering from anesthesia and has been complaining of pain to the right AKA stump, no vomiting or diarrhea reported by the nursing staff. The patient white count of 11 creatinine is 2.3 4 repeat blood cultures so far pending Objective - Vital Signs Vital signs: Vital Signs Temp 97.4 F L 07/26/23 12:26 Pulse 93 07/26/23 12:28 Resp 16 07/26/23 12:28 BP 90/64 07/26/23 12:28 Pulse Ox 95 07/26/23 12:28 FiO2 30 07/20/23 14:29 Intake & Output 07/25/23 07/26/23 07/26/23 18:59 06:59 18:59 Intake Total 580 520 Output Total 2701 2500 Balance -2120 Weight 115 kg 112.2 kg Intake: IV 20 Invasive Line 2 10 Invasive Line 4 10 Oral 180 Hemodialysis 400 500 Output: Urine 1 Hemodialysis 2700 2500 Other: Voiding Method Bedside Commode Bedside Commode Bedside Commode Urinal Urinal Urinal # Voids 3 - Exam GENERAL DESCRIPTION: Middle-age male lying in bed in no distress RESPIRATORY SYSTEM: Unlabored breathing , decreased breath sounds at bases HEART: S1 S2 regular rate and rhythm , ABDOMEN: Soft , no tenderness EXTREMITIES: Right AKA stump is currently dressed in OR dressing - Labs CBC & Chem 7: 07/27/23 11:09 07/27/23 11:09 Labs: Abnormal Lab Results - Last 24 Hours (Table) 07/25/23 07/25/23 07/25/23 Range/Units 16:45 20:20 21:27 WBC (3.8-10.6) k/uL RBC (4.30-5.90) m/uL Hgb (13.0-17.5) gm/dL Hct (39.0-53.0) % MCHC (31.0-37.0) g/dL RDW (11.5-15.5) % Neutrophils # (1.3-7.7) k/uL Sodium (137-145) mmol/L Chloride (98-107) mmol/L BUN (9-20) mg/dL Creatinine (0.66-1.25) mg/dL Glucose (74-99) mg/dL POC Glucose (mg/dL) 67 L 140 H (70-110) mg/dL Calcium (8.4-10.2) mg/dL Alkaline Phosphatase (38-126) U/L Albumin (3.5-5.0) g/dL SARS-CoV-2 (PCR) Detected A (Not Detectd) 07/26/23 07/26/23 07/26/23 Range/Units 04:07 04:07 06:06 WBC 11.0 H (3.8-10.6) k/uL RBC 3.50 L (4.30-5.90) m/uL Hgb 9.7 L (13.0-17.5) gm/dL Hct 32.1 L (39.0-53.0) % MCHC 30.3 L (31.0-37.0) g/dL RDW 16.9 H (11.5-15.5) % Neutrophils # 8.0 H (1.3-7.7) k/uL Sodium 132 L (137-145) mmol/L Chloride 97 L (98-107) mmol/L BUN 48 H (9-20) mg/dL Creatinine 2.34 H (0.66-1.25) mg/dL Glucose 67 L (74-99) mg/dL POC Glucose (mg/dL) 61 L (70-110) mg/dL Calcium 8.3 L (8.4-10.2) mg/dL Alkaline Phosphatase 150 H (38-126) U/L Albumin 2.9 L (3.5-5.0) g/dL SARS-CoV-2 (PCR) (Not Detectd) 07/26/23 07/26/23 Range/Units 11:28 11:42 WBC (3.8-10.6) k/uL RBC (4.30-5.90) m/uL Hgb (13.0-17.5) gm/dL Hct (39.0-53.0) % MCHC (31.0-37.0) g/dL RDW (11.5-15.5) % Neutrophils # (1.3-7.7) k/uL Sodium (137-145) mmol/L Chloride (98-107) mmol/L BUN (9-20) mg/dL Creatinine (0.66-1.25) mg/dL Glucose (74-99) mg/dL POC Glucose (mg/dL) 51 L 154 H (70-110) mg/dL Calcium (8.4-10.2) mg/dL Alkaline Phosphatase (38-126) U/L Albumin (3.5-5.0) g/dL SARS-CoV-2 (PCR) (Not Detectd) Microbiology - Last 24 Hours (Table) 07/20/23 21:25 Blood Culture - Final Blood 07/23/23 11:00 Blood Culture - Preliminary Blood 07/23/23 10:43 Blood Culture - Preliminary Blood Assessment and Plan (1) Foot osteomyelitis, right Current Visit: No Status: Acute Code(s): M86.9 - OSTEOMYELITIS, UNSPECIFIED SNOMED Code(s): 9994841778176057 (2) Non compliance with medical treatment Current Visit: Yes Status: Acute Code(s): Z91.199 - PT NONCOMPL WITH OTHER MED TRTMT AND REGIMEN D/T UNSP REASON SNOMED Code(s): 5420457 (3) Bacteremia Current Visit: Yes Status: Acute Code(s): R78.81 - BACTEREMIA SNOMED C ode(s): 1068787 Plan: 1-patient with a positive blood culture with gram-positive cocci questionably related to his dialysis catheter versus right heel diabetic foot infection with underlying osteomyelitis found with the patient has previously grown MRSA Prot eus strep and anaerobes and the patient still have nonhealing of this wound despite receiving antibiotic therapy since 05/15/2023, with a chance of healing of this wound with the medical therapy Minimal to impossible Patient is status post right [id number] amputation completed on 07/26/2023. 2blood culture repeat on 07/23/2023 has been negative so far. 3patient to continue with the daptomycin cefepime and Flagyl and monitor clinical course closely Dictation was produced using [employer] dictation software. please excuse any grammatical, word or spelling errors.
--- NOTE | 2023-07-27 14:58 | P.PN ---
Subjective Progress Note Date: 07/27/23 Principal diagnosis: Reason for follow-up is right heel diabetic foot ulcer and osteomyelitis, positive blood culture Patient is a 53-year-old male with a past medical history significant for coronary artery disease COPD diabetes mellitus hypertension hyperlipidemia [place] sleep apnea end-stage renal disease on dialysis patient did have a chronic nonhealing wound to the right heel area with underlying osteomyelitis for the patient did have a multiple admission to this facility, patient did have issues with noncompliance recently [facility] and then subsequently did not show up for his dialysis and then presented to the hospital with worsening shortness of breath, The patient is status post right [id number] amputation completed on 07/26/2023. On today's evaluation that is07/27/2023 the patient remains to be afebrile, the patient is breathing comfortably on room air denies any chest pain shortness of breath or cough has been complaining of pain to the right AKA stump and is asking for more pain medication no vomiting or diarrhea reported by the nursing staff. Patient white count slightly up to 14.1 today creatinine is 2.48 Objective - Vital Signs Vital signs: Vital Signs Temp 99.5 F 07/27/23 11:04 Pulse 98 07/27/23 11:04 Resp 16 07/27/23 11:04 BP 105/63 07/27/23 11:04 Pulse Ox 96 07/27/23 11:04 FiO2 30 07/20/23 14:29 Intake & Output 07/26/23 07/27/23 07/27/23 18:59 06:59 18:59 Intake Total 1242 480 702 Output Total 3200 100 Balance -1958 380 702 Intake: IV 520 Invasive Line 2 10 Invasive Line 4 10 Oral 222 480 702 Hemodialysis 500 Output: Urine 500 100 Hemodialysis 2500 Estimated Blood Loss 200 Other: Voiding Method Bedside Commode Bedside Commode Indwelling Catheter Urinal Urinal - Exam GENERAL DESCRIPTION: Middle-age male lying in bed in no distress RESPIRATORY SYSTEM: Unlabored breathing , decreased breath sounds at bases HEART: S1 S2 regular rate and rhythm , ABDOMEN: Soft , no tenderness EXTREMITIES: Right AKA stump is currently dressed in OR dressing - Labs CBC & Chem 7: 07/27/23 11:09 07/27/23 11:09 Labs: Abnormal Lab Results - Last 24 Hours (Table) 1207/26/23 07/26/23 Range/Units 04:07 15:47 19:46 POC Glucose (mg/dL) 57 L 185 H (70-110) mg/dL Iron 34 L (65-175) UG/DL % Saturation 13.18 L (15.00-50.00) Transferrin 184.0 L (204.0-354.0) mg/dL 07/27/23 07/27/23 Range/Units 05:56 11:21 POC Glucose (mg/dL) 188 H 231 H (70-110) mg/dL Iron (65-175) UG/DL % Saturation (15.00-50.00) Transferrin (204.0-354.0) mg/dL Microbiology - Last 24 Hours (Table) 07/23/23 11:00 Blood Culture - Preliminary Blood 07/23/23 10:43 Blood Culture - Preliminary Blood 07/20/23 21:25 Blood Culture - Final Blood Assessment and Plan (1) Foot osteomyelitis, right Current Visit: No Status: Acute Code(s): M86.9 - OSTEOMYELITIS, UNSPECIFIED SNOMED Code(s): 0982616679886005 (2) Non compliance with medical treatment Current Visit: Yes Status: Acute Code(s): Z91.199 - PT NONCOMPL WITH OTHER MED TRTMT AND REGIMEN D/T UNSP REASON SNOMED Code(s): 7374478 (3) Bacteremia Current Visit: Yes Status: Acute Code(s): R78.81 - BACTEREMIA SNOMED Code(s): 1374788 Plan: 1-patient with a positive blood culture with gram-positive cocci questionably related to his dialysis catheter versus right heel diabetic foot infection with underlying osteomyelitis found with the patient has previously grown MRSA Proteus strep and anaerobes and the patient still have nonhealing of this wound despite receiving antibiotic therapy since 05/15/2023, with a chance of healing of this wound with the medical therapy Minimal to impossible Patient is status post right [id number] amputation completed on 07/26/2023. 2blood culture repeat on 07/23/2023 has been negative so far. 3patient to continue with the current antibiotics of daptomycin cefepime and Flagyl however with infected port removed he will not need to be on a long-term antibiotics on discharge Dictation was produced using dragon dictation software. please excuse any grammatical, word or spelling errors. Time with Patient: Less than 30
[2023-07-27 16:05] LABS: Glucose,Whole Blood 162 mg/dL (70-110)
[2023-07-27] MEDS: METOPROLOL TARTRATE 25 MG TAB PO SCH ×2 (16:32→21:13)
[2023-07-27] MEDS: FUROSEMIDE 10 MG/ML 10 ML VIAL IV SCH ×2 (16:34→21:12)
[2023-07-27 19:56] LABS: Glucose,Whole Blood 281 mg/dL (70-110)
[2023-07-27] MEDS: INSULIN DETEMIR (LEVEMIR) 100 UNIT/ML SYR SQ SCH ×2 (21:13→21:21)
[2023-07-27] MEDS: CEFEPIME 1 GM in SODIUM CHLORIDE 0.9% 50 ML IVPB SCH (21:22)
--- NOTE | 2023-07-27 21:45 | P.PN ---
Progress Note - Text Progress Note Date: 07/27/23 Chief Complaint: Short of breath This is a 53-year-old patient, follows with Dr. Rodríguez. Chronic stable medical condition include CHF EF less than 20%, COPD, diabetes mellitus type 2, hypertension, hyperlipidemia, obstructive sleep apnea, anxiety, AICD, lower extremity venous insufficiency. Patient had lower extremity wounds and has been followed by ID and Dr. Lugo from vascular. in the hospital from May 14 through May 29. Patient had worsening wound after right foot. has been told multiple times to Dr. Lugo to proceed with amputation. Last admission he also was on IV Bumex drip and dobutamine drip for congestive heart failure. Was discharged home on antibiotics. Admitted from June 05 through June 10. Presented again with worsening wound. malodorous drainage. Denies fever and chills. Tired. Does not want surgery. Reluctant. And/or nystagmus and need for the same. It was explained to her that antibiotics are not helping. Patient was seen by cardiology Dr. Lugo from vascular. Patient readmitted on June 16 and on July 04. I seen the patient on June 16 admission. Patient initially agreed for amputation then declined the same. Patient discharged July 09. Patient now presents to ER with increasing shortness of breath. Mrs. dialysis on Saturday and because they will have right. He did go to dialysis yesterday and for short time then sent to the ER. Significant edema. Does make urine. Some cough. No fever no chills. Eating fair. Patient was dialyzed last night in the ER. Also placed on BiPAP. 07/22/2023: Patient had bleeding from right heel wound. Vascular Dr. Lugo consulted. Breathing better. Chronic stable dialysis tomorrow. Eating fair 07/23/2023: Right heel in the dressing. Discussed with Dr. Lugo. Amputation would be the only option. Discussed with the patient. Is not sure again. Getting dialyzed today. Eating well 07/24/2023: Had a very lengthy discussion with the patient today. He does understand he is being postponing surgery for a very long time. Reemphasized that his overall condition is getting much worse including not being on dialysis and recurrent infections in the leg. Patient has decided to proceed with amputation. I called Dr. Lugo. Spoke to the patient. Cardiology was again consulted for the clearance for the same. Patient now being scheduled for this coming Saturday. Total time spent today about 70 minutes with over 45 minutes of discussion. Discussed with ID. Current antibiotics to continue. 07/25/2023: On the recliner. Patient is ready for amputation tomorrow. No new issues. Discussed. 07/26/2023: Laying in bed watching television. Some pain in the right leg stump. Had above amputation by Dr. Lugo on the right side today. 07/27/2023: Getting dialysis today. Pain in the right stump. Eating close to 100%. Discussed. Active Medications Acetaminophen (Acetaminophen Tab 325 Mg Tab) 650 mg PO Q6HR PRN PRN Reason: Mild Pain or Fever > 100.5 Last Admin: 07/27/23 03:40 Dose: 650 mg Hydrocodone Bitart/Acetaminophen (Hydrocodone/Apap 5-325mg 1 Each Tab) 1 each PO Q6HR PRN PRN Reason: Pain Last Admin: 07/27/23 16:58 Dose: 1 each Albuterol Sulfate (Albuterol Hfa Inhaler) 2 puff INHALATION RT-QID [facility] Last Admin: 07/27/23 18:10 Dose: 2 puff Albuterol Sulfate (Albuterol Hfa Inhaler) 2 puff INHALATION RT-QID PRN PRN Reason: Shortness Of Breath Or Wheezing Alprazolam (Alprazolam 0.5 Mg Tab) 0.5 mg PO Q8HR PRN PRN Reason: Anxiety Last Admin: 07/27/23 08:27 Dose: 0.5 mg Ascorbic Acid (Ascorbic Acid 500 Mg Tab) 1,000 mg PO DAILY [facility] Last Admin: 07/27/23 08:14 Dose: 1,000 mg Aspirin (Aspirin 81 Mg) 81 mg PO DAILY [facility] Last Admin: 07/27/23 08:11 Dose: 81 mg Darbepoetin Tae (Darbepoetin Tae 40 Mcg/0.4 Ml Syringe) 40 mcg SQ Q7D [facility] Last Admin: 07/27/23 12:26 Dose: 40 mcg Dextrose/Water (Dextrose 50% Syringe 50 Ml) 25 ml IVP PER PROTOCOL PRN; Protocol PRN Reason: Hypoglycemia Last Admin: 07/26/23 15:52 Dose: 25 ml Dextrose/Water (Dextrose 50% Syringe 50 Ml) 50 ml IVP PER PROTOCOL PRN; Protocol PRN Reason: Hypoglycemia Last Admin: 07/26/23 11:30 Dose: 50 ml Duloxetine HCl (Duloxetine Hcl 30 Mg Capsule.Dr) 30 mg PO DAILY [facility] Last Admin: 07/27/23 08:11 Dose: 30 mg Famotidine (Famotidine 20 Mg Tab) 20 mg PO DAILY [facility] Last Admin: 07/27/23 08:11 Dose: 20 mg Fluphenazine HCl (Fluphenazine 1 Mg Tab) 3 mg PO HS [facility] Last Admin: 07/27/23 21:23 Dose: 3 mg Folic Acid (Folic Acid 1 Mg Tab) 1 mg PO DAILY [facility] Last Admin: 07/27/23 08:11 Dose: 1 mg Furosemide (Furosemide 10 Mg/Ml 10 Ml Vial) 80 mg IV Q12HR [facility] Last Admin: 07/27/23 21:12 Dose: 80 mg Heparin Sodium (Porcine) (Heparin Sodium,Porcine 5,000 Unit/Ml 1 Ml Vial) 5,000 unit SQ TID@0700,1500,2300 [facility] Last Admin: 07/27/23 21:22 Dose: 5,000 unit Hydromorphone HCl (Hydromorphone 0.5 Mg/0.5 Ml Syringe) 0.5 mg IVP Q6HR PRN PRN Reason: Pain Last Admin: 07/27/23 19:09 Dose: 0.5 mg Cefepime HCl 1 gm/ Sodium (Chloride) 50 mls @ 12.5 mls/hr IVPB HS [facility] Last Admin: 07/27/23 21:22 Dose: 12.5 mls/hr Daptomycin 500 mg/ Sodium (Chloride) 50 mls @ 100 mls/hr IVPB Q48H [facility] Last Admin: 07/26/23 19:51 Dose: 100 mls/hr Insulin Aspart (Insulin Aspart (Novolog) 100 Unit/Ml Vial) 0 unit SQ ACHS [facility]; Protocol Last Admin: 07/27/23 21:21 Dose: 6 unit Insulin Detemir (Insulin Detemir (Levemir) 100 Unit/Ml Syr) 18 unit SQ HS [facility] Last Admin: 07/27/23 21:21 Dose: 18 unit Lactulose (Lactulose 20 Gm/30 Ml Cup) 20 gm PO DAILY PRN PRN Reason: Constipation Metoprolol Tartrate (Metoprolol Tartrate 25 Mg Tab) 25 mg PO BID [facility] Last Admin: 07/27/23 21:13 Dose: 25 mg Metronidazole (Metronidazole 500 Mg Tab) 500 mg PO TID@0700,1500,2300 [facility]; Protocol Last Admin: 07/27/23 21:13 Dose: 500 mg Midodrine (Midodrine 5 Mg Tab) 10 mg PO TID@0730,1100,1600 [facility] Last Admin: 07/27/23 15:23 Dose: 10 mg Midodrine (Midodrine 5 Mg Tab) 10 mg PO DAILY PRN PRN Reason: Blood Pressure - Low Last Admin: 07/26/23 07:48 Dose: 10 mg Multivitamins (Multivitamins, Thera 1 Each Tab) 1 each PO DAILY [facility] Last Admin: 07/27/23 08:11 Dose: 1 each Naloxone HCl (Naloxone 0.4 Mg/Ml 1 Ml Vial) 0.2 mg IV Q2M PRN PRN Reason: Opioid Reversal Olanzapine (Olanzapine 5 Mg Tab) 5 mg PO TID PRN PRN Reason: Agitation Last Admin: 07/25/23 02:49 Dose: 5 mg Quetiapine Fumarate (Quetiapine 25 Mg Tab) 12.5 mg PO BID PRN PRN Reason: Agitation Quetiapine Fumarate (Quetiapine 25 Mg Tab) 12.5 mg PO BID [facility] Last Admin: 07/27/23 21:13 Dose: 12.5 mg Silver Sulfadiazine (Silver Sulfadiazine 1% Cream 25 Gm Tube) 1 applic TOPICAL BID@0800,1700 [facility]; Protocol Last Admin: 07/27/23 18:16 Dose: Not Given Thiamine HCl (Thiamine 100 Mg Tab) 100 mg PO DAILY [facility] Last Admin: 07/27/23 08:11 Dose: 100 mg Trazodone HCl (Trazodone Hcl 50 Mg Tab) 50 mg PO HS PRN PRN Reason: Insomnia Last Admin: 07/26/23 23:05 Dose: 50 mg Zinc Sulfate (Zinc Sulfate 220 Mg Cap) 220 mg PO DAILY [facility] Last Admin: 07/27/23 08:11 Dose: 220 mg Social history: Lives with his 20-year-old son. Disabled. 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 Smoking 2 packs a day for most of his life . Stop drinking heavy alcohol about 20 years ago. Has done marijuana. Physical examination: VITAL SIGNS: 97.8, 94, 16, 94/65, 96% on room air GENERAL: Laying in bed EYES: Pupils equal. Conjunctiva normal. HEENT: External appearance of nose and ears normal, oral cavity grossly normal. NECK: JVD unable to assess; masses not palpable. HEART: First and second heart sounds are normal; significant edema LUNGS: Respiratory rate increased; diminished breath sounds ABDOMEN: Soft, nontender, liver spleen not palpable, no masses palpable. Scrotal swelling PSYCH: Alert and oriented x3; mood and affect anxious. NEUROLOGICAL: Cranial nerves grossly intact. No facial asymmetry DERMATOLOGICAL: Above knee amputation with a dressing of the stump INVESTIGATIONS, reviewed in the clinical context: 07/27/2022: White count 14.1 in globin 8.7 potassium 4.3 creatinine 2.48 07/21/2023: White count 6.9 hemoglobin 10.8 platelets 193 sodium 133 potassium 5.7 BUN 6615 2.14 EKG tracing personally reviewed by me-sinus tachycardia. Some ST-T wave changes. Chest x-ray film personally reviewed by me-cardiomegaly. Some venous prominence Assessment and plan: -Acute on chronic congestive heart failure nonischemic cardiomyopathy systolic dysfunction EF less than 20%: Worsening from missed hemodialysis.: Slow to respond IV Lasix 80 mg every 12. Hemodialysis. AICD. Fluid restriction 1500 mL. Being followed by cardiology and nephrology -Acute hypoxic respiratory failure from fluid overload/CHF.: Improved Placed on BiPAP last night in the ER. room air -Acute on chronic recurrent right lower leg cellulitis, infected right heel diabetic ulcer with prior history of debridement. Has been told multiple times about surgery. Wound swab for Gram stain and culture. Proteus vulgaris, Streptococcus agalactiae group B-previously IV cefepime and IV daptomycin Patient has not healed with antibiotics and debridement alone. Does need amputation as discussed previously with Dr. Lugo. Patient has repeatedly turned on surgery as he has not been able to make a decision Right above-knee amputation by Dr. Yared Lugo on June 2019. - COPD in a previous smoker Ventolin. EpifaniooNeb. -Diabetes mellitus type 2 chronically on insulin, uncontrolled with [id number] Increase Levemir 24 units subcu Diabetic diet. Accu-Cheks and sliding scale -Hyperlipidemia Lipitor -Chronic kidney disease stage III from diabetic nephropathy and nephrosclerosis Baseline creatinine of 1.2 on May 14. -Hemodialysis dependent acute kidney injury with severe volume on board. Patie nt has been noncompliant with dialysis. Follow with nephrology -Hyponatremia-mild Fluid restriction -Chronic low back pain. Patient's had pain on and off for about 10 years. Has had prior surgery. Does not remember who did the surgery. topical lidocaine patch. -Essential hypertension Lopressor -Obstructive sleep apnea sometimes uses CPAP machine -Diabetic peripheral neuropathy -Anxiety Ativan when necessary -DJD Tylenol when necessary -AICD -Lower extremity chronic venous insufficiency -Full code Discussed with patient. Eating well. Include insulin. Plan for patient to go to rehab.
[2023-07-28] MEDS: HYDROmorphone 0.5 MG/0.5 ML SYRINGE IVP PRN ×4 (01:14→18:57)
[2023-07-28] MEDS: HYDROcodone/APAP 5-325MG 1 EACH TAB PO PRN ×4 (04:52→23:47)
[2023-07-28 06:10] LABS: Glucose,Whole Blood 209 mg/dL (70-110)
[2023-07-28] MEDS: HEPARIN SODIUM,PORCINE 5,000 UNIT/ML 1 ML VIAL SQ SCH ×3 (06:46→21:25)
[2023-07-28] MEDS: INSULIN ASPART (NovoLOG) 100 UNIT/ML VIAL SQ SCH ×7 (06:47→21:11)
[2023-07-28] MEDS: metroNIDAZOLE 500 MG TAB PO SCH ×2 (06:47→15:20)
[2023-07-28] MEDS: MIDODRINE 5 MG TAB PO SCH ×3 (06:48→16:44)
[2023-07-28] MEDS: ASCORBIC ACID 500 MG TAB PO SCH (08:08)
[2023-07-28] MEDS: QUEtiapine 25 MG TAB PO SCH ×2 (08:08→21:26)
[2023-07-28] MEDS: THIAMINE 100 MG TAB PO SCH (08:08)
[2023-07-28] MEDS: MULTIVITAMINS, THERA 1 EACH TAB PO SCH (08:09)
[2023-07-28] MEDS: FOLIC ACID 1 MG TAB PO SCH (08:09)
[2023-07-28] MEDS: ZINC SULFATE 220 MG CAP PO SCH (08:09)
[2023-07-28] MEDS: ASPIRIN 81 MG PO SCH (08:09)
[2023-07-28] MEDS: FAMOTIDINE 20 MG TAB PO SCH (08:09)
[2023-07-28] MEDS: ALBUTEROL HFA INHALER INHALATION SCH ×4 (08:11→20:42)
[2023-07-28] MEDS: ALPRAZolam 0.5 MG TAB PO PRN ×2 (09:33→23:47)
[2023-07-28] MEDS: MIDODRINE 5 MG TAB PO PRN (09:33)
--- NOTE | 2023-07-28 10:37 | P.PN ---
Subjective Patient is seen in follow-up for acute kidney injury, hemodialysis dependent. Has been undergoing daily hemodialysis due to severe volume overload. Tolerating dialysis well. Blood pressure on the lower side. Resting in bed. Vital signs are stable. Blood pressure on the lower side. General: No acute distress. HEENT: Head exam is unremarkable. LUNGS: Scattered rhonchi. HEART: Rate and Rhythm are regular. ABDOMEN: Nontender. EXTREMITITES: Right AKA. 2+ edema. Objective - Vital Signs Vital signs: Vital Signs Temp 98.3 F 07/28/23 07:25 Pulse 87 07/28/23 07:25 Resp 17 07/28/23 07:25 BP 103/66 07/28/23 07:25 Pulse Ox 92 L 07/28/23 07:25 FiO2 30 07/20/23 14:29 Intake & Output 07/27/23 07/28/23 07/28/23 18:59 06:59 18:59 Intake Total 1424 Output Total 1999 Balance -576 Intake: Oral 924 Hemodialysis 500 Output: Hemodialysis 1999 Other: Voiding Method Indwelling Catheter Indwelling Catheter - Labs CBC & Chem 7: 07/27/23 11:09 07/27/23 11:09 Labs: Abnormal Lab Results - Last 24 Hours (Table) 07/27/23 07/27/23 07/27/23 Range/Units 11:09 11:09 11:21 WBC 14.1 H (3.8-10.6) k/uL RBC 3.06 L (4.30-5.90) m/uL Hgb 8.7 L (13.0-17.5) gm/dL Hct 27.5 L (39.0-53.0) % RDW 17.4 H (11.5-15.5) % Neutrophils # 10.8 H (1.3-7.7) k/uL Monocytes # 1.4 H (0-1.0) k/uL Sodium 133 L (137-145) mmol/L Chloride 97 L (98-107) mmol/L BUN 41 H (9-20) mg/dL Creatinine 2.48 H (0.66-1.25) mg/dL Glucose 166 H (74-99) mg/dL POC Glucose (mg/dL) 231 H (70-110) mg/dL Calcium 8.1 L (8.4-10.2) mg/dL 07/27/23 07/27/23 07/28/23 Range/Units 16:03 19:53 06:07 WBC (3.8-10.6) k/uL RBC (4.30-5.90) m/uL Hgb (13.0-17.5) gm/dL Hct (39.0-53.0) % RDW (11.5-15.5) % Neutrophils # (1.3-7.7) k/uL Monocytes # (0-1.0) k/uL Sodium (137-145) mmol/L Chloride (98-107) mmol/L BUN (9-20) mg/dL Creatinine (0.66-1.25) mg/dL Glucose (74-99) mg/dL POC Glucose (mg/dL) 162 H 281 H 209 H (70-110) mg/dL Calcium (8.4-10.2) mg/dL Assessment and Plan Plan: Assessment: 1. Acute kidney injury, hemodialysis dependent. Has permacath. Maintain on hemodialysis on Saturday schedule outpatient. 2. Chronic kidney disease stage IV secondary to diabetic kidney disease cardiorenal syndrome. 3. Acute on chronic systolic CHF ejection fraction of less than 20%. 4. Volume overload. Improving with ultrafiltration. 5. Right lower extremity wound on IV antibiotics. Refused inpatient in the p ast. 6. Chronic hypotension maintained on midodrine. 7. Diabetes mellitus. 8. Anemia of chronic kidney disease. Iron deficiency noted. On Aranesp. Plan: Currently seen while undergoing hemodialysis. Next treatment on Saturday. Change IV Lasix to torsemide. Maintain Aranesp. Hold off on IV iron due to acute infection. Maintain fluid restriction. Strongly advised patient to be compliant with hemodialysis treatments outpatient. Prognosis guarded.
[2023-07-28] MEDS: METOPROLOL TARTRATE 25 MG TAB PO SCH ×2 (11:21→21:25)
[2023-07-28] MEDS: DULoxetine HCL 30 MG CAPSULE.DR PO SCH (11:21)
[2023-07-28] MEDS: FUROSEMIDE 10 MG/ML 10 ML VIAL IV SCH (11:23)
[2023-07-28 11:42] LABS: Glucose,Whole Blood 166 mg/dL (70-110)
--- NOTE | 2023-07-28 15:14 | P.PN ---
Subjective Progress Note Date: 07/28/23 Principal diagnosis: Reason for follow-up is right heel diabetic foot ulcer and osteomyelitis, positive blood culture Patient is a 53-year-old male with a past medical history significant for coronary artery disease COPD diabetes mellitus hypertension hyperlipidemia DC sleep apnea end-stage renal disease on dialysis patient did have a chronic nonhealing wound to the right heel area with underlying osteomyelitis for the patient did have a multiple admission to this facility, patient did have issues with noncompliance recently signed out from intermediate facility and then subsequently did not show up for his dialysis and then presented to the hospital with worsening shortness of breath, The patient is status post right [id number] amputation completed on 07/26/2023. On today's evaluation that is 07/28/2023 patient continues to be afebrile, the patient is breathing comfortably on room air without need for supplemental oxygen patient has got his pain medication and is currently sleepy no vomiting diarrhea or any other changes reported by the nursing staff. No lab draw today, repeat blood cultures so far negative Objective - Vital Signs Vital signs: Vital Signs Temp 97.4 F L 07/28/23 12:16 Pulse 95 07/28/23 12:16 Resp 17 07/28/23 12:16 BP 99/65 07/28/23 12:16 Pulse Ox 95 07/28/23 12:16 FiO2 30 07/20/23 14:29 Intake & Output 07/27/23 07/28/23 07/28/23 18:59 06:59 18:59 Intake Total 1424 Output Total 1999 Balance -576 Intake: Oral 924 Hemodialysis 500 Output: Hemodialysis 1999 Other: Voiding Method Indwelling Catheter Indwelling Catheter Indwelling Catheter - Exam GENERAL DESCRIPTION: Middle-age male lying in bed in no distress RESPIRATORY SYSTEM: Unlabored breathing , decreased breath sounds at bases HEART: S1 S2 regular rate and rhythm , ABDOMEN: Soft , no tenderness EXTREMITIES: Right AKA stump is currently dressed in OR dressing - Labs CBC & Chem 7: 07/27/23 11:09 07/27/23 11:09 Labs: Abnormal Lab Results - Last 24 Hours (Table) 07/27/23 07/27/23 07/28/23 Range/Units 16:03 19:53 06:07 POC Glucose (mg/dL) 162 H 281 H 209 H (70-110) mg/dL 07/28/23 Range/Units 11:40 POC Glucose (mg/dL) 166 H (70-110) mg/dL Assessment and Plan (1) Foot osteomyelitis, right Current Visit: No Status: Acute Code(s): M86.9 - OSTEOMYELITIS, UNSPECIFIED SNOMED Code(s): 6913185638538061 (2) Non compliance with medical treatment Current Visit: Yes Status: Acute Code(s): Z91.199 - PT NONCOMPL WITH OTHER MED TRTMT AND REGIMEN D/T UNSP REASON SNOMED Code(s): 2342485 (3) Bacteremia Current Visit: Yes Status: Acute Code(s): R78.81 - BACTEREMIA SNOMED Code(s): 3991057 Plan: 1-patient with a positive blood culture with gram-positive cocci questionably related to his dialysis catheter versus right heel diabetic foot infection with underlying osteomyelitis found with the patient has previously grown MRSA Proteus strep and anaerobes and the patient still have nonhealing of this wound despite receiving antibiotic therapy since 05/15/2023, with a chance of healing of this wound with the medical therapy Minimal to impossible Patient is status post right [id number] amputation completed on 07/26/2023. 2blood culture repeat on 07/23/2023 has been negative so far. 3we will continue patient on daptomycin as the patient did have bacteremia this admission however discontinue cefepime and Flagyl and monitor his clinical course closely Dictation was produced using [employer] dictation software. please excuse any grammatical, word or spelling errors. Time with Patient: Less than 30
[2023-07-28 16:16] LABS: Glucose,Whole Blood 126 mg/dL (70-110)
--- NOTE | 2023-07-28 17:00 | P.PN ---
Progress Note - Text Progress Note Date: 07/28/23 Chief Complaint: Short of breath This is a 53-year-old patient, follows with Dr. Rodríguez. Chronic stable medical condition include CHF EF less than 20%, COPD, diabetes mellitus type 2, hypertension, hyperlipidemia, obstructive sleep apnea, anxiety, AICD, lower extremity venous insufficiency. Patient had lower extremity wounds and has been followed by ID and Dr. Lugo from vascular. in the hospital from May 14 through May 29. Patient had worsening wound after right foot. has been told multiple times to Dr. Lugo to proceed with amputation. Last admission he also was on IV Bumex drip and dobutamine drip for congestive heart failure. Was discharged home on antibiotics. Admitted from June 05 through June 10. Presented again with worsening wound. malodorous drainage. Denies fever and chills. Tired. Does not want surgery. Reluctant. And/or nystagmus and need for the same. It was explained to her that antibiotics are not helping. Patient was seen by cardiology Dr. Lugo from vascular. Patient readmitted on June 16 and on July 04. I seen the patient on June 16 admission. Patient initially agreed for amputation then declined the same. Patient discharged July 09. Patient now presents to ER with increasing shortness of breath. Mrs. dialysis on Saturday and because they will have right. He did go to dialysis yesterday and for short time then sent to the ER. Significant edema. Does make urine. Some cough. No fever no chills. Eating fair. Patient was dialyzed last night in the ER. Also placed on BiPAP. 07/22/2023: Patient had bleeding from right heel wound. Vascular Dr. Lugo consulted. Breathing better. Chronic stable dialysis tomorrow. Eating fair 07/23/2023: Right heel in the dressing. Discussed with Dr. Lugo. Amputation would be the only option. Discussed with the patient. Is not sure again. Getting dialyzed today. Eating well 07/24/2023: Had a very lengthy discussion with the patient today. He does understand he is being postponing surgery for a very long time. Reemphasized that his overall condition is getting much worse including not being on dialysis and recurrent infections in the leg. Patient has decided to proceed with amputation. I called Dr. Lugo. Spoke to the patient. Cardiology was again consulted for the clearance for the same. Patient now being scheduled for this coming Saturday. Total time spent today about 70 minutes with over 45 minutes of discussion. Discussed with ID. Current antibiotics to continue. 07/25/2023: On the recliner. Patient is ready for amputation tomorrow. No new issues. Discussed. 07/26/2023: Laying in bed watching television. Some pain in the right leg stump. Had above amputation by Dr. Lugo on the right side today. 07/27/2023: Getting dialysis today. Pain in the right stump. Eating close to 100%. Discussed. 07/28/2023: Oral intake fair. Mostly sleepy on current pain medications. Does also more medications. Discussed not safe to give more. Active Medications Acetaminophen (Acetaminophen Tab 325 Mg Tab) 650 mg PO Q6HR PRN PRN Reason: Mild Pain or Fever > 100.5 Last Admin: 07/27/23 03:40 Dose: 650 mg Hydrocodone Bitart/Acetaminophen (Hydrocodone/Apap 5-325mg 1 Each Tab) 1 each PO Q6HR PRN PRN Reason: Pain Last Admin: 07/28/23 10:23 Dose: 1 each Albuterol Sulfate (Albuterol Hfa Inhaler) 2 puff INHALATION RT-QID LAN Last Admin: 07/28/23 15:25 Dose: 2 puff Albuterol Sulfate (Albuterol Hfa Inhaler) 2 puff INHALATION RT-QID PRN PRN Reason: Shortness Of Breath Or Wheezing Alprazolam (Alprazolam 0.5 Mg Tab) 0.5 mg PO Q8HR PRN PRN Reason: Anxiety Last Admin: 07/28/23 09:33 Dose: 0.5 mg Ascorbic Acid (Ascorbic Acid 500 Mg Tab) 1,000 mg PO DAILY [facility] Last Admin: 07/28/23 08:08 Dose: 1,000 mg Aspirin (Aspirin 81 Mg) 81 mg PO DAILY [facility] Last Admin: 07/28/23 08:09 Dose: 81 mg Darbepoetin Tae (Darbepoetin Tae 40 Mcg/0.4 Ml Syringe) 40 mcg SQ Q7D [facility] Last Admin: 07/27/23 12:26 Dose: 40 mcg Dextrose/Water (Dextrose 50% Syringe 50 Ml) 25 ml IVP PER PROTOCOL PRN; Protocol PRN Reason: Hypoglycemia Last Admin: 07/26/23 15:52 Dose: 25 ml Dextrose/Water (Dextrose 50% Syringe 50 Ml) 50 ml IVP PER PROTOCOL PRN; P rotocol PRN Reason: Hypoglycemia Last Admin: 07/26/23 11:30 Dose: 50 ml Duloxetine HCl (Duloxetine Hcl 30 Mg Capsule.Dr) 30 mg PO DAILY [facility] Last Admin: 07/28/23 11:21 Dose: 30 mg Famotidine (Famotidine 20 Mg Tab) 20 mg PO DAILY [facility] Last Admin: 07/28/23 08:09 Dose: 20 mg Fluphenazine HCl (Fluphenazine 1 Mg Tab) 3 mg PO HS [facility] Last Admin: 07/27/23 21:23 Dose: 3 mg Folic Acid (Folic Acid 1 Mg Tab) 1 mg PO DAILY [facility] Last Admin: 07/28/23 08:09 Dose: 1 mg Heparin Sodium (Porcine) (Heparin Sodium,Porcine 5,000 Unit/Ml 1 Ml Vial) 5,000 unit SQ TID@0700,1500,2300 [facility] Last Admin: 07/28/23 15:22 Dose: 5,000 unit Hydromorphone HCl (Hydromorphone 0.5 Mg/0.5 Ml Syringe) 0.5 mg IVP Q6HR PRN PRN Reason: Pain Last Admin: 07/28/23 12:59 Dose: 0.5 mg Daptomycin 500 mg/ Sodium (Chloride) 50 mls @ 100 mls/hr IVPB Q48H [facility] Last Admin: 07/26/23 19:51 Dose: 100 mls/hr Insulin Aspart (Insulin Aspart (Novolog) 100 Unit/Ml Vial) 0 unit SQ ACHS [facility]; Protocol Last Admin: 07/28/23 16:18 Dose: Not Given Insulin Aspart (Insulin Aspart (Novolog) 100 Unit/Ml Vial) 3 unit SQ AC-TID [facility] Last Admin: 07/28/23 16:44 Dose: 3 unit Insulin Detemir (Insulin Detemir (Levemir) 100 Unit/Ml Syr) 24 unit SQ [facility] Lactulose (Lactulose 20 Gm/30 Ml Cup) 20 gm PO DAILY PRN PRN Reason: Constipation Metoprolol Tartrate (Metoprolol Tartrate 25 Mg Tab) 25 mg PO BID [facility] Last Admin: 07/28/23 11:21 Dose: 25 mg Midodrine (Midodrine 5 Mg Tab) 10 mg PO TID@0730,1100,1600 [facility] Last Admin: 07/28/23 16:44 Dose: 10 mg Midodrine (Midodrine 5 Mg Tab) 10 mg PO DAILY PRN PRN Reason: Blood Pressure - Low Last Admin: 07/28/23 09:33 Dose: 10 mg Multivitamins (Multivitamins, Thera 1 Each Tab) 1 each PO DAILY [facility] Last Admin: 07/28/23 08:09 Dose: 1 each Naloxone HCl (Naloxone 0.4 Mg/Ml 1 Ml Vial) 0.2 mg IV Q2M PRN PRN Reason: Opioid Reversal Olanzapine (Olanzapine 5 Mg Tab) 5 mg PO TID PRN PRN Reason: Agitation Last Admin: 07/25/23 02:49 Dose: 5 mg Quetiapine Fumarate (Quetiapine 25 Mg Tab) 12.5 mg PO BID PRN PRN Reason: Agitation Quetiapine Fumarate (Quetiapine 25 Mg Tab) 12.5 mg PO BID [facility] Last Admin: 07/28/23 08:08 Dose: 12.5 mg Silver Sulfadiazine (Silver Sulfadiazine 1% Cream 25 Gm Tube) 1 applic TOPICAL BID@0800,1700 [facility]; Protocol Last Admin: 07/28/23 16:45 Dose: 1 applic Thiamine HCl (Thiamine 100 Mg Tab) 100 mg PO DAILY [facility] Last Admin: 07/28/23 08:08 Dose: 100 mg Torsemide (Torsemide 20 Mg Tab) 40 mg PO DAILY [facility] Trazodone HCl (Trazodone Hcl 50 Mg Tab) 50 mg PO HS PRN PRN Reason: Insomnia Last Admin: 07/26/23 23:05 Dose: 50 mg Zinc Sulfate (Zinc Sulfate 220 Mg Cap) 220 mg PO DAILY [facility] Last Admin: 07/28/23 08:09 Dose: 220 mg Social history: Lives with his 20-year-old son. Disabled. 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 Smoking 2 packs a day for most of his life . Stop drinking heavy alcohol about 20 years ago. Has done marijuana. Physical examination: VITAL SIGNS: 98.5, 84, 16, 10 1 x 73, 95% on 2 L GENERAL: Laying in bed, sleepy EYES: Pupils equal. Conjunctiva normal. HEENT: External appearance of nose and ears normal, oral cavity grossly normal. NECK: JVD unable to assess; masses not palpable. HEART: First and second heart sounds are normal; significant edema LUNGS: Respiratory rate increased; diminished breath sounds ABDOMEN: Soft, nontender, liver spleen not palpable, no masses palpable. Scrotal swelling PSYCH: Sleepy but does answer questions appropriately NEUROLOGICAL: Cranial nerves grossly intact. No facial asymmetry DERMATOLOGICAL: Above knee amputation with a dressing of the stump INVESTIGATIONS, reviewed in the clinical context: 07/27/2022: White count 14.1 in globin 8.7 potassium 4.3 creatinine 2.48 07/21/2023: White count 6.9 hemoglobin 10.8 platelets 193 sodium 133 potassium 5.7 BUN 6615 2.14 EKG tracing personally reviewed by me-sinus tachycardia. Some ST-T wave changes. Chest x-ray film personally reviewed by me-cardiomegaly. Some venous prominence Assessment and plan: -Acute on chronic congestive heart failure nonischemic cardiomyopathy systolic dysfunction EF less than 20%: Worsening from missed hemodialysis.: Slow to respond IV Lasix 80 mg every 12. Hemodialysis. AICD. Fluid restriction 1500 mL. Being followed by cardiology and nephrology -Acute hypoxic respiratory failure from fluid overload/CHF.: Improved Placed on BiPAP last night in the ER. room air -Acute on chronic recurrent right lower leg cellulitis, infected right heel diabetic ulcer with prior history of debridement. Has been told multiple times about surgery. Wound swab for Gram stain and culture. Proteus vulgaris, Streptococcus agalactiae group B-previously IV cefepime and IV daptomycin Patient has not healed with antibiotics and debridement alone. Does need amputation as discussed previously with Dr. Lugo. Patient has repeatedly turned on surgery as he has not been able to make a decision Right above-knee amputation by Dr. Yared Lugo on June 2019. - COPD in a previous smoker Ventolin. DuoNeb. -Diabetes mellitus type 2 chronically on insulin, uncontrolled with [id number] Increase Levemir 24 units subcu Diabetic diet. Accu-Cheks and sliding scale -Hyperlipidemia Lipitor -Chronic kidney disease stage III from diabetic nephropathy and nephrosclerosis Baseline creatinine of 1.2 on May 14. -Hemodialysis dependent acute kidney injury with severe volume on board. Patient has been noncompliant with dialysis. Follow with nephrology -Hyponatremia-mild Fluid restriction -Chronic low back pain. Patient's had pain on and off for about 10 years. Has had prior surgery. Does not remember who did the surgery. topical lidocaine patch. -Essential hypertension Lopressor -Obstructive sleep apnea sometimes uses CPAP machine -Diabetic peripheral neuropathy -Anxiety Ativan when necessary -DJD Tylenol when necessary -AICD -Lower extremity chronic venous insufficiency -Full code
[2023-07-28 20:34] LABS: Glucose,Whole Blood 140 mg/dL (70-110)
[2023-07-28] MEDS ORDERED: INSULIN DETEMIR (LEVEMIR) 100 UNIT/ML SYR SQ SCH (21:00)
[2023-07-28] MEDS: DAPTOmycin 500 MG in SODIUM CHLORIDE 0.9% 50 ML IVPB SCH (21:24)
[2023-07-29] MEDS: HYDROmorphone 0.5 MG/0.5 ML SYRINGE IVP PRN ×2 (01:16→08:08)
[2023-07-29] MEDS: traZODone HCL 50 MG TAB PO PRN (03:47)
[2023-07-29 06:19] LABS: Glucose,Whole Blood 239 mg/dL (70-110)
[2023-07-29] MEDS: INSULIN ASPART (NovoLOG) 100 UNIT/ML VIAL SQ SCH ×7 (06:35→21:06)
[2023-07-29] MEDS: HEPARIN SODIUM,PORCINE 5,000 UNIT/ML 1 ML VIAL SQ SCH ×3 (06:35→21:06)
[2023-07-29] MEDS: HYDROcodone/APAP 5-325MG 1 EACH TAB PO PRN ×4 (06:36→23:47)
[2023-07-29] MEDS: MIDODRINE 5 MG TAB PO SCH ×3 (06:36→15:57)
[2023-07-29] MEDS: ALBUTEROL HFA INHALER INHALATION SCH ×4 (08:02→20:42)
[2023-07-29] MEDS: ALPRAZolam 0.5 MG TAB PO PRN ×2 (08:07→20:29)
[2023-07-29] MEDS: ASCORBIC ACID 500 MG TAB PO SCH (08:07)
[2023-07-29] MEDS: ASPIRIN 81 MG PO SCH (08:08)
[2023-07-29] MEDS: DULoxetine HCL 30 MG CAPSULE.DR PO SCH (08:08)
[2023-07-29] MEDS: TORSEMIDE 20 MG TAB PO SCH (08:08)
[2023-07-29] MEDS: ZINC SULFATE 220 MG CAP PO SCH (08:08)
[2023-07-29] MEDS: FAMOTIDINE 20 MG TAB PO SCH (08:08)
[2023-07-29] MEDS: THIAMINE 100 MG TAB PO SCH (08:08)
[2023-07-29] MEDS: QUEtiapine 25 MG TAB PO SCH ×2 (08:08→21:07)
[2023-07-29] MEDS: METOPROLOL TARTRATE 25 MG TAB PO SCH ×2 (08:08→21:07)
[2023-07-29] MEDS: MULTIVITAMINS, THERA 1 EACH TAB PO SCH (08:08)
[2023-07-29] MEDS: FOLIC ACID 1 MG TAB PO SCH (08:08)
--- NOTE | 2023-07-29 10:50 | P.PN ---
Subjective Patient is seen in follow-up for acute kidney injury, hemodialysis dependent. Has been undergoing daily hemodialysis due to severe volume overload. Tolerated about 1 L ultrafiltration yesterday. Blood pressure on the lower side. Resting in bed. Vital signs are stable. Blood pressure on the lower side. General: No acute distress. HEENT: Head exam is unremarkable. LUNGS: Scattered rhonchi. HEART: Rate and Rhythm are regular. ABDOMEN: Nontender. EXTREMITITES: Right AKA. 2+ edema. Objective - Vital Signs Vital signs: Vital Signs Temp 98.0 F 07/29/23 06:56 Pulse 96 07/29/23 06:56 Resp 18 07/29/23 06:56 BP 101/64 07/29/23 06:56 Pulse Ox 95 07/29/23 06:56 FiO2 30 07/20/23 14:29 Intake & Output 07/28/23 07/29/23 07/29/23 18:59 06:59 18:59 Intake Total 400 Output Total 1333 100 Balance -933 -100 Weight 112.5 kg Intake: Hemodialysis 400 Output: Urine 250 100 Hemodialysis 1083 Other: Voiding Method Indwelling Catheter Indwelling Catheter Indwelling Catheter - Labs CBC & Chem 7: 07/27/23 11:09 07/27/23 11:09 Labs: Abnormal Lab Results - Last 24 Hours (Table) 07/28/23 07/28/23 07/28/23 Range/Units 11:40 16:15 20:32 POC Glucose (mg/dL) 166 H 126 H 140 H (70-110) mg/dL 07/29/23 Range/Units 06:17 POC Glucose (mg/dL) 239 H (70-110) mg/dL Microbiology - Last 24 Hours (Table) 07/23/23 11:00 Blood Culture - Final Blood 07/23/23 10:43 Blood Culture - Final Blood Assessment and Plan Plan: Assessment: 1. Acute kidney injury, hemodialysis dependent. Has permacath. Maintain on hemodialysis on Saturday schedule outpatient. 2. Chronic kidney disease stage IV secondary to diabetic kidney disease cardiorenal syndrome. 3. Acute on chronic systolic CHF ejection fraction of less than 20%. 4. Volume overload. Improved with ultrafiltration. 5. Right lower extremity wound on IV antibiotics. Refused inpatient in the past. 6. Chronic hypotension maintained on midodrine. 7. Diabetes mellitus. 8. Anemia of chronic kidney disease. Iron deficiency noted. On Aranesp. Plan: Hemodialysis tomorrow. Maintain torsemide. Maintain Aranesp. Hold off on IV iron due to acute infection. Maintain fluid restriction. Strongly advised patient to be compliant with hemodialysis treatments outpatient. Prognosis guarded.
[2023-07-29 11:38] LABS: Glucose,Whole Blood 187 mg/dL (70-110)
--- NOTE | 2023-07-29 15:36 | P.PN ---
Subjective Progress Note Date: 07/29/23 Principal diagnosis: Reason for follow-up is right heel diabetic foot ulcer and osteomyelitis, positive blood culture Patient is a 53-year-old male with a past medical history significant for coronary artery disease COPD diabetes mellitus hypertension hyperlipidemia ID sleep apnea end-stage renal disease on dialysis patient did have a chronic nonhealing wound to the right heel area with underlying osteomyelitis for the patient did have a multiple admission to this facility, patient did have issues with noncompliance recently [facility] and then subsequently did not show up for his dialysis and then presented to the hospital with worsening shortness of breath, The patient is status post right [id number] amputation completed on 07/26/2023. On today's evaluation that is 07/29/2023, the patient remains to be afebrile, the patient is breathing comfortably on 4 L nasal cannula supplemental oxygen patient is currently sleepy has received his pain medication did not provide any history no vomiting diarrhea or any other changes reported by the nursing staff. No labs has been repeated today blood culture repeat on 07/23/2023 has been negative Objective - Vital Signs Vital signs: Vital Signs Temp 97.8 F 07/29/23 13:55 Pulse 89 07/29/23 13:55 Resp 16 07/29/23 13:55 BP 110/72 07/29/23 13:55 Pulse Ox 99 07/29/23 13:55 FiO2 30 07/20/23 14:29 Intake & Output 07/28/23 07/29/23 07/29/23 18:59 06:59 18:59 Intake Total 400 Output Total 1333 100 Balance -933 -100 Weight 112.5 kg Intake: Hemodialysis 400 Output: Urine 250 100 Hemodialysis 1083 Other: Voiding Method Indwelling Catheter Indwelling Catheter Indwelling Catheter - Exam GENERAL DESCRIPTION: Middle-age male lying in bed in no distress RESPIRATORY SYSTEM: Unlabored breathing , decreased breath sounds at bases HEART: S1 S2 regular rate and rhythm , ABDOMEN: Soft , no tenderness EXTREMITIES: Right AKA stump is currently dressed in OR dressing - Labs CBC & Chem 7: 07/27/23 11:09 07/27/23 11:09 Labs: Abnormal Lab Results - Last 24 Hours (Table) 07/28/23 07/28/23 07/29/23 Range/Units 16:15 20:32 06:17 POC Glucose (mg/dL) 126 H 140 H 239 H (70-110) mg/dL 07/29/23 Range/Units 11:36 POC Glucose (mg/dL) 187 H (70-110) mg/dL Microbiology - Last 24 Hours (Table) 07/23/23 11:00 Blood Culture - Final Blood 07/23/23 10:43 Blood Culture - Final Blood Assessment and Plan (1) Foot osteomyelitis, right Current Visit: No Status: Acute Code(s): M86.9 - OSTEOMYELITIS, UNSPECIFIED SNOMED Code(s): 9645676682654688 (2) Non compliance with medical treatment Current Visit: Yes Status: Acute Code(s): Z91.199 - PT NONCOMPL WITH OTHER MED TRTMT AND REGIMEN D/T UNSP REASON SNOMED Code(s): 8192238 (3) Bacteremia Current Visit: Yes Status: Acute Code(s): R78.81 - BACTEREMIA SNOMED Code(s): 4680437 Plan: 1-patient with a positive blood culture with gram-positive cocci questionably related to his dialysis catheter versus right heel diabetic foot infection with underlying osteomyelitis found with the patient has previously grown MRSA Proteus strep and anaerobes and the patient still have nonhealing of this wound despite receiving antibiotic therapy since 05/15/2023, with a chance of healing of this wound with the medical therapy Minimal to impossible Patient is status post right [id number] amputation completed on 07/26/2023. 2blood culture repeat on 07/23/2023 has been negative so far. 3Patient to continue with the daptomycin we will repeat his CBC inflammatory markers with a.m. lab Dictation was produced using [employer] dictation software. please excuse any grammatical, word or spelling errors. Time with Patient: Less than 30
--- NOTE | 2023-07-29 15:45 | P.PN ---
Subjective Progress Note Date: 07/29/23 Progress note 07/29/2023 BP 110/72, heart rate 89 beats a minute On telemetry was noticed that patient had a runoff 21 beats nonsustained ventricular tachycardia 07/28/2023 Hemoglobin 8.7, sodium 133, potassium 4.3, Patient is however asymptomatic. She denies any chest pain chest pressure. HISTORY OF PRESENT ILLNESS: This is a 52-year-old male with a past medical history significant for nonischemic cardiomyopathy, AICD implantation, nonsustained ventricular tachycardia, hypertension, hyperlipidemia, COPD, nicotine dependence, diabetes and right-sided foot diabetic ulcer. Patient follows in the office with Dr. Abbasi. We have been asked to see the patient in consultation for preoperative clearance. Patient examined at the bedside. Patient has been evaluated by vascular surgery with recommendations for right-sided [id number] amputation. Patient has refused amputation previously however he has decided to proceed with amputation now. The patient denies any chest pain or pressure. He denies shortness of breath. He is currently receiving hemodialysis at the time of examination. EKG reveals sinus mechanism with heart rate of 116. Chest xray moderate cardiomegaly and interstitial changes along with Иван B lines. Correlate for developing interstitial pulmonary edema Current home cardiac medications include torsemide 40 mg daily, Midodrine 10 mg 3 times a day, metoprolol tartrate 25 mg twice a day, aspirin 81 mg daily Most recent echocardiogram obtained in June 2022 revealed ejection fraction less than 20%, severe pulmonary hypertension, moderate to severe mitral regurgitation, moderate tricuspid regurgitation Cardiac catheterization history: February 2018 revealing minimal coronary artery disease 07/25/2023 Patient examined this morning. Patient is sitting up in a chair. Patient currently denies chest pain or pressure. He denies shortness of breath. He co mplains of pain that is not well controlled on current regimen. He also reports scrotal edema this morning and is having a hard time getting comfortable in the chair because of this. 07/26/2023 Patient examined this morning. Patient is currently undergoing hemodialysis. No complaints of chest pain or pressure. He continues to report generalized discomfort. He is scheduled for right AKA today. Vital signs are stable. PHYSICAL EXAM: VITAL SIGNS: Reviewed. GENERAL: Well-developed in no acute distress. HEENT: Head is normocephalic. Pupils are equal, round. Sclerae anicteric. Mucous membranes of the mouth are moist. Neck supple. No JVD or thyromegaly LUNGS: Respirations even and unlabored. Lungs essentially clear to auscultation bilaterally. HEART: Regular rate and rhythm. S1 and S2 heard. Systolic murmur noted. ABDOMEN: Soft. Nondistended. Nontender. EXTREMITIES: Normal range of motion. No clubbing or cyanosis. Peripheral pulses intact. 3+ bilateral lower extremity edema. NEUROLOGIC: Awake and alert. Oriented x 3. ASSESSMENT: 21 beat NSVT s/p right AKA 07/26/23 Nonischemic cardiomyopathy with EF 20% History of AICD implantation Chronic heart failure with reduced ejection fraction History of nonsustained ventricular tachycardia Hyperlipidemia Diabetes Chronic kidney disease on hemodialysis Nicotine dependence History of medication noncompliance Hypotension, maintained on Midodrine outpatient, unable to tolerate BALBINA/ARB PLAN: Normal potassium levels. Patient's NSVT was most likely due to underlying infection . She is protected from an AICD device that she has. As she was asymptomatic, we don't feel the need for any further intervention like repeating an echocardiogram on interrogating her device. Continue metoprolol 25 mg twice a day. Check magnesium levels. Continue current cardiac medications. Continue to monitor blood pressure Hemodialysis per nephrology Objective - Vital Signs Vital signs: Vital Signs Temp 97.8 F 07/29/23 13:55 Pulse 89 07/29/23 13:55 Resp 16 07/29/23 13:55 BP 110/72 07/29/23 13:55 Pulse Ox 99 07/29/23 13:55 FiO2 30 07/20/23 14:29 Intake & Output 07/28/23 07/29/23 07/29/23 18:59 06:59 18:59 Intake Total 400 Output Total 1333 100 Balance -933 -100 Weight 112.5 kg Intake: Hemodialysis 400 Output: Urine 250 100 Hemodialysis 1083 Other: Voiding Method Indwelling Catheter Indwelling Catheter Indwelling Catheter - Labs CBC & Chem 7: 07/27/23 11:09 07/27/23 11:09 Labs: Abnormal Lab Results - Last 24 Hours (Table) 07/28/23 07/28/23 07/29/23 Range/Units 16:15 20:32 06:17 POC Glucose (mg/dL) 126 H 140 H 239 H (70-110) mg/dL 07/29/23 Range/Units 11:36 POC Glucose (mg/dL) 187 H (70-110) mg/dL Microbiology - Last 24 Hours (Table) 07/23/23 11:00 Blood Culture - Final Blood 07/23/23 10:43 Blood Culture - Final Blood
[2023-07-29 16:42] LABS: Glucose,Whole Blood 124 mg/dL (70-110)
--- NOTE | 2023-07-29 18:33 | P.PN ---
Progress Note - Text Progress Note Date: 07/29/23 Chief Complaint: Short of breath This is a 53-year-old patient, follows with Dr. Rodríguez. Chronic stable medical condition include CHF EF less than 20%, COPD, diabetes mellitus type 2, hypertension, hyperlipidemia, obstructive sleep apnea, anxiety, AICD, lower extremity venous insufficiency. Patient had lower extremity wounds and has been followed by ID and Dr. Lugo from vascular. in the hospital from May 14 through May 29. Patient had worsening wound after right foot. has been told multiple times to Dr. Lugo to proceed with amputation. Last admission he also was on IV Bumex drip and dobutamine drip for congestive heart failure. Was discharged home on antibiotics. Admitted from June 05 through June 10. Presented again with worsening wound. malodorous drainage. Denies fever and chills. Tired. Does not want surgery. Reluctant. And/or nystagmus and need for the same. It was explained to her that antibiotics are not helping. Patient was seen by cardiology Dr. Lugo from vascular. Patient readmitted on June 16 and on July 04. I seen the patient on June 16 admission. Patient initially agreed for amputation then declined the same. Patient discharged July 09. Patient now presents to ER with increasing shortness of breath. Mrs. dialysis on Saturday and because they will have right. He did go to dialysis yesterday and for short time then sent to the ER. Significant edema. Does make urine. Some cough. No fever no chills. Eating fair. Patient was dialyzed last night in the ER. Also placed on BiPAP. 07/22/2023: Patient had bleeding from right heel wound. Vascular Dr. Lugo consulted. Breathing better. Chronic stable dialysis tomorrow. Eating fair 07/23/2023: Right heel in the dressing. Discussed with Dr. Lugo. Amputation would be the only option. Discussed with the patient. Is not sure again. Getting dialyzed today. Eating well 07/24/2023: Had a very lengthy discussion with the patient today. He does understand he is being postponing surgery for a very long time. Reemphasized that his overall condition is getting much worse including not being on dialysis and recurrent infections in the leg. Patient has decided to proceed with amputation. I called Dr. Lugo. Spoke to the patient. Cardiology was again consulted for the clearance for the same. Patient now being scheduled for this coming Saturday. Total time spent today about 70 minutes with over 45 minutes of discussion. Discussed with ID. Current antibiotics to continue. 07/25/2023: On the recliner. Patient is ready for amputation tomorrow. No new issues. Discussed. 07/26/2023: Laying in bed watching television. Some pain in the right leg stump. Had above amputation by Dr. Lugo on the right side today. 07/27/2023: Getting dialysis today. Pain in the right stump. Eating close to 100%. Discussed. 07/28/2023: Oral intake fair. Mostly sleepy on current pain medications. Does also more medications. Discussed not safe to give more. 07/29/2023: Patient had been sleepy most of the time. Has remained to do so. Therefore Dilaudid is being discontinued. Patient does get Percocet. As been getting daily dialysis. Averaging about 50% oral intake. He also can eat better after Dilaudid was discontinued. As he be more awake. Patient had a 21 beat of non-SVT. Seen by: [facility]. Continue with metoprolol. Active Medications Acetaminophen (Acetaminophen Tab 325 Mg Tab) 650 mg PO Q6HR PRN PRN Reason: Mild Pain or Fever > 100.5 Last Admin: 07/27/23 03:40 Dose: 650 mg Hydrocodone Bitart/Acetaminophen (Hydrocodone/Apap 5-325mg 1 Each Tab) 1 each PO Q6HR PRN PRN Reason: Pain Last Admin: 07/28/23 10:23 Dose: 1 each Albuterol Sulfate (Albuterol Hfa Inhaler) 2 puff INHALATION RT-QID REPLACED BY [facility] Last Admin: 07/28/23 15:25 Dose: 2 puff Albuterol Sulfate (Albuterol Hfa Inhaler) 2 puff INHALATION RT-QID PRN PRN Reason: Shortness Of Breath Or Wheezing Alprazolam (Alprazolam 0.5 Mg Tab) 0.5 mg PO Q8HR PRN PRN Reason: Anxiety Last Admin: 07/28/23 09:33 Dose: 0.5 mg Ascorbic Acid (Ascorbic Acid 500 Mg Tab) 1,000 mg PO DAILY LAN Last Admin: 07/28/23 08:08 Dose: 1,000 mg Aspirin (Aspirin 81 Mg) 81 mg PO DAILY REPLACED BY [facility] Last Admin: 07/28/23 08:09 Dose: 81 mg Darbepoetin Tae (Darbepoetin Tae 40 Mcg/0.4 Ml Syringe) 40 mcg SQ Q7D REPLACED BY [facility] Last Admin: 07/27/23 12:26 Dose: 40 mcg Dextrose/Water (Dextrose 50% Syringe 50 Ml) 25 ml IVP PER PROTOCOL PRN; Protocol PRN Reason: Hypoglycemia Last Admin: 07/26/23 15:52 Dose: 25 ml Dextrose/Water (Dextrose 50% Syringe 50 Ml) 50 ml IVP PER PROTOCOL PRN; Protocol PRN Reason: Hypoglycemia Last Admin: 07/26/23 11:30 Dose: 50 ml Duloxetine HCl (Duloxetine Hcl 30 Mg Capsule.Dr) 30 mg PO DAILY REPLACED BY [facility] Last Admin: 07/28/23 11:21 Dose: 30 mg Famotidine (Famotidine 20 Mg Tab) 20 mg PO DAILY REPLACED BY [facility] Last Admin: 07/28/23 08:09 Dose: 20 mg Fluphenazine HCl (Fluphenazine 1 Mg Tab) 3 mg PO HS REPLACED BY [facility] Last Admin: 07/27/23 21:23 Dose: 3 mg Folic Acid (Folic Acid 1 Mg Tab) 1 mg PO DAILY REPLACED BY [facility] Last Admin: 07/28/23 08:09 Dose: 1 mg Heparin Sodium (Porcine) (Heparin Sodium,Porcine 5,000 Unit/Ml 1 Ml Vial) 5,000 unit SQ TID@0700,1500,2300 REPLACED BY [facility] Last Admin: 07/28/23 15:22 Dose: 5,000 unit Hydromorphone HCl (Hydromorphone 0.5 Mg/0.5 Ml Syringe) 0.5 mg IVP Q6HR PRN PRN Reason: Pain Last Admin: 07/28/23 12:59 Dose: 0.5 mg Daptomycin 500 mg/ Sodium (Chloride) 50 mls @ 100 mls/hr IVPB Q48H REPLACED BY [facility] Last Admin: 07/26/23 19:51 Dose: 100 mls/hr Insulin Aspart (Insulin Aspart (Novolog) 100 Unit/Ml Vial) 0 unit SQ ACHS REPLACED BY [facility]; Protocol Last Admin: 07/28/23 16:18 Dose: Not Given Insulin Aspart (Insulin Aspart (Novolog) 100 Unit/Ml Vial) 3 unit SQ AC-TID REPLACED BY [facility] Last Admin: 07/28/23 16:44 Dose: 3 unit Insulin Detemir (Insulin Detemir (Levemir) 100 Unit/Ml Syr) 24 unit SQ HS REPLACED BY [facility] Lactulose (Lactulose 20 Gm/30 Ml Cup) 20 gm PO DAILY PRN PRN Reason: Constipation Metoprolol Tartrate (Metoprolol Tartrate 25 Mg Tab) 25 mg PO BID REPLACED BY [facility] Last Admin: 07/28/23 11:21 Dose: 25 mg Midodrine (Midodrine 5 Mg Tab) 10 mg PO TID@0730,1100,1600 REPLACED BY [facility] Last Admin: 07/28/23 16:44 Dose: 10 mg Midodrine (Midodrine 5 Mg Tab) 10 mg PO DAILY PRN PRN Reason: Blood Pressure - Low Last Admin: 07/28/23 09:33 Dose: 10 mg Multivitamins (Multivitamins, Thera 1 Each Tab) 1 each PO DAILY REPLACED BY [facility] Last Admin: 07/28/23 08:09 Dose: 1 each Naloxone HCl (Naloxone 0.4 Mg/Ml 1 Ml Vial) 0.2 mg IV Q2M PRN PRN Reason: Opioid Reversal Olanzapine (Olanzapine 5 Mg Tab) 5 mg PO TID PRN PRN Reason: Agitation Last Admin: 07/25/23 02:49 Dose: 5 mg Quetiapine Fumarate (Quetiapine 25 Mg Tab) 12.5 mg PO BID PRN PRN Reason: Agitation Quetiapine Fumarate (Quetiapine 25 Mg Tab) 12.5 mg PO BID REPLACED BY [facility] Last Admin: 07/28/23 08:08 Dose: 12.5 mg Silver Sulfadiazine (Silver Sulfadiazine 1% Cream 25 Gm Tube) 1 applic TOPICAL BID@0800,1700 REPLACED BY [facility]; Protocol Last Admin: 07/28/23 16:45 Dose: 1 applic Thiamine HCl (Thiamine 100 Mg Tab) 100 mg PO DAILY REPLACED BY [facility] Last Admin: 07/28/23 08:08 Dose: 100 mg Torsemide (Torsemide 20 Mg Tab) 40 mg PO DAILY REPLACED BY [facility] Trazodone HCl (Trazodone Hcl 50 Mg Tab) 50 mg PO HS PRN PRN Reason: Insomnia Last Admin: 07/26/23 23:05 Dose: 50 mg Zinc Sulfate (Zinc Sulfate 220 Mg Cap) 220 mg PO DAILY REPLACED BY [facility] Last Admin: 07/28/23 08:09 Dose: 220 mg Social history: Lives with his 20-year-old son. Disabled. 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 Smoking 2 packs a day for most of his life . Stop drinking heavy alcohol about 20 years ago. Has done marijuana. Physical examination: VITAL SIGNS: 98.5, 84, 16, 10 1 x 73, 95% on 2 L GENERAL: Laying in bed, sleepy EYES: Pupils equal. Conjunctiva normal. HEENT: External appearance of nose and ears normal, oral cavity grossly normal. NECK: JVD unable to assess; masses not palpable. HEART: First and second heart sounds are normal; significant edema LUNGS: Respiratory rate increased; diminished breath sounds ABDOMEN: Soft, nontender, liver spleen not palpable, no masses palpable. Scrotal swelling PSYCH: Sleepy but does answer questions appropriately NEUROLOGICAL: Cranial nerves grossly intact. No facial asymmetry DERMATOLOGICAL: Above knee amputation with a dressing of the stump INVESTIGATIONS, reviewed in the clinical context: 07/27/2022: White count 14.1 in globin 8.7 potassium 4.3 creatinine 2.48 07/21/2023: White count 6.9 hemoglobin 10.8 platelets 193 sodium 133 potassium 5.7 BUN 6615 2.14 EKG tracing personally reviewed by me-sinus tachycardia. Some ST-T wave changes. Chest x-ray film personally reviewed by me-cardiomegaly. Some venous prominence Assessment and plan: -Acute on chronic congestive heart failure nonischemic cardiomyopathy systolic dysfunction EF less than 20%: Worsening from missed hemodialysis.: Slow to r espond IV Lasix 80 mg every 12. Hemodialysis. AICD. Fluid restriction 1500 mL. Being followed by cardiology and nephrology -Acute hypoxic respiratory failure from fluid overload/CHF.: Improved Placed on BiPAP last night in the ER. room air -Acute on chronic recurrent right lower leg cellulitis, infected right heel diabetic ulcer with prior history of debridement. Has been told multiple times about surgery. Wound swab for Gram stain and culture. Proteus vulgaris, Streptococcus agalactiae group B-previously IV cefepime and IV daptomycin Patient has not healed with antibiotics and debridement alone. Does need amputation as discussed previously with Dr. Lugo. Patient has repeatedly turned on surgery as he has not been able to make a decision Right above-knee amputation by Dr. Yared Lugo on June 2019. - COPD in a previous smoker Ventolin. DuoNeb. -21 beat run of NSVT. Has AICD. Check magnesium. Being followed by cardiology. -Diabetes mellitus type 2 chronically on insulin, uncontrolled with [id number] Increase Levemir 28 units subcu Diabetic diet. Accu-Cheks and sliding scale -Iron deficiency anemia aranesp -Hyperlipidemia Lipitor -Chronic kidney disease stage III from diabetic nephropathy and nephrosclerosis Baseline creatinine of 1.2 on May 14. -Hemodialysis dependent acute kidney injury with severe volume on board. Patient has been noncompliant with dialysis. Follow with nephrology -Hyponatremia-mild Fluid restriction -Chronic low back pain. Patient's had pain on and off for about 10 years. Has had prior surgery. Does not remember who did the surgery. topical lidocaine patch. -Essential hypertension Lopressor -Obstructive sleep apnea sometimes uses CPAP machine -Diabetic peripheral neuropathy -Anxiety Ativan when necessary -DJD Tylenol when necessary -AICD -Lower extremity chronic venous insufficiency -Full code Looking at discharge to rehab in next 24-48 hours
[2023-07-29] MEDS: MIDODRINE 5 MG TAB PO PRN (19:20)
[2023-07-29 20:38] LABS: Glucose,Whole Blood 229 mg/dL (70-110)
[2023-07-29] MEDS ORDERED: INSULIN DETEMIR (LEVEMIR) 100 UNIT/ML SYR SQ SCH (21:00)
[2023-07-30 00:55] LABS: Glucose,Whole Blood 252 mg/dL (70-110)
[2023-07-30 05:12] LABS: Glucose,Whole Blood 147 mg/dL (70-110)
[2023-07-30] MEDS: INSULIN ASPART (NovoLOG) 100 UNIT/ML VIAL SQ SCH ×4 (05:16→12:01)
[2023-07-30] MEDS: HEPARIN SODIUM,PORCINE 5,000 UNIT/ML 1 ML VIAL SQ SCH ×2 (05:24→08:26)
[2023-07-30] MEDS: MIDODRINE 5 MG TAB PO SCH ×3 (05:24→15:20)
[2023-07-30] MEDS: HYDROcodone/APAP 5-325MG 1 EACH TAB PO PRN (05:25)
[2023-07-30] MEDS: ALPRAZolam 0.5 MG TAB PO PRN (06:19)
[2023-07-30 07:29] LABS: Anisocytosis Slight; Basophils # (A) 0.1 k/uL (0-0.2); Basophils % (A) 1 %; Eosinophils # (A) 0.5 k/uL (0-0.7); Eosinophils % (A) 4 %; HCT 27.8 % (39.0-53.0); HGB 8.5 gm/dL (13.0-17.5); Hypochromasia Marked; Lymphocytes # (A) 1.4 k/uL (1.0-4.8); Lymphocytes % (A) 11 %; MCH 28.3 pg (25.0-35.0); MCHC 30.5 g/dL (31.0-37.0); MCV 92.7 fL (80.0-100.0); Macrocytosis Slight; Mean Platelet Volume 8.8; Monocytes # (A) 1.2 k/uL (0-1.0); Monocytes % (A) 10 %; Neutrophils # (A) 8.6 k/uL (1.3-7.7); Neutrophils % (A) 72 %; Platelet Count 229 k/uL (150-450); RDW 18.5 % (11.5-15.5)
[2023-07-30] MEDS: ALBUTEROL HFA INHALER INHALATION SCH ×3 (08:08→15:37)
[2023-07-30 08:23] LABS: ALT 14 U/L (4-49); AST 25 U/L (17-59); African American GFR (CKD) 25 (>60 ml/min/1.73 sqM); Albumin 2.7 g/dL (3.5-5.0); Albumin/Globulin Ratio 0.8; Alkaline Phosphatase 168 U/L (38-126); Anion Gap 10 mmol/L; Blood Urea Nitrogen 42 mg/dL (9-20); C Reactive Protein 4.5 mg/dL (<1.0); Calcium 7.9 mg/dL (8.4-10.2); Carbon Dioxide 23 mmol/L (22-30); Chloride 98 mmol/L (98-107); Globulin 3.3 g/dL; Glucose 156 mg/dL (74-99); Magnesium 1.8 mg/dL (1.6-2.3); Non-African American GFR(CKD) 21 (>60 ml/min/1.73 sqM); Potassium 4.1 mmol/L (3.5-5.1); Sodium 131 mmol/L (137-145); Total Bilirubin 0.5 mg/dL (0.2-1.3)
[2023-07-30] MEDS: ZINC SULFATE 220 MG CAP PO SCH (08:26)
[2023-07-30] MEDS: FAMOTIDINE 20 MG TAB PO SCH (08:26)
[2023-07-30] MEDS: ASPIRIN 81 MG PO SCH (08:26)
[2023-07-30] MEDS: THIAMINE 100 MG TAB PO SCH (08:26)
[2023-07-30] MEDS: QUEtiapine 25 MG TAB PO SCH (08:26)
[2023-07-30] MEDS: ASCORBIC ACID 500 MG TAB PO SCH (08:26)
[2023-07-30] MEDS: METOPROLOL TARTRATE 25 MG TAB PO SCH (08:26)
[2023-07-30] MEDS: FOLIC ACID 1 MG TAB PO SCH (08:26)
[2023-07-30] MEDS: MULTIVITAMINS, THERA 1 EACH TAB PO SCH (08:26)
[2023-07-30] MEDS: DULoxetine HCL 30 MG CAPSULE.DR PO SCH (08:27)
[2023-07-30] MEDS: TORSEMIDE 20 MG TAB PO SCH (08:28)
[2023-07-30] MEDS: ACETAMINOPHEN TAB 325 MG TAB PO PRN (08:39)
[2023-07-30] MEDS ORDERED: MAGNESIUM SULFATE-D5W PMX 1 GM in DEXTROSE/WATER 1 100ML.BAG IVPB ONE (08:41)
[2023-07-30] MEDS ORDERED: AMIODARONE 200 MG TAB PO SCH (09:00)
--- NOTE | 2023-07-30 09:24 | P.PN ---
Subjective HISTORY OF PRESENT ILLNESS: This is a 52-year-old male with a past medical history significant for nonischemic cardiomyopathy, AICD implantation, nonsustained ventricular tachycardia, hypertension, hyperlipidemia, COPD, nicotine dependence, diabetes and right-sided foot diabetic ulcer. Patient follows in the office with Dr. Abbasi. We have been asked to see the patient in consultation for preoperative clearance. Patient examined at the bedside. Patient has been evaluated by vascular surgery with recommendations for right-sided [id number] amputation. Patient has refused amputation previously however he has decided to proceed with amputation now. The patient denies any chest pain or pressure. He denies shortness of breath. He is currently receiving hemodialysis at the time of examination. * EKG reveals sinus mechanism with heart rate of 116. * Chest xray moderate cardiomegaly and interstitial changes along with Иван B lines. Correlate for developing interstitial pulmonary edema * Current home cardiac medications include torsemide 40 mg daily, Midodrine 10 mg 3 times a day, metoprolol tartrate 25 mg twice a day, aspirin 81 mg daily * Most recent echocardiogram obtained in June 2022 revealed ejection fraction less than 20%, severe pulmonary hypertension, moderate to severe mitral regurgitation, moderate tricuspid regurgitation * Cardiac catheterization history: February 2018 revealing minimal coronary artery disease 07/25/2023 Patient examined this morning. Patient is sitting up in a chair. Patient currently denies chest pain or pressure. He denies shortness of breath. He complains of pain that is not well controlled on current regimen. He also reports scrotal edema this morning and is having a hard time getting comfortable in the chair because of this. 07/26/2023 Patient examined this morning. Patient is currently undergoing hemodialysis. No complaints of chest pain or pressure. He continues to report generalized discomfort. He is scheduled for right AKA today. Vital signs are stable. July 30 2023 Patient examined this morning at the bedside. He is status post right AKA. He is currently undergoing hemodialysis with the goal of 2 L of fluid removal. He denies any chest pain or pressure. He denies any shortness of breath. Patient did have a run of nonsustained ventricular tachycardia this morning. The patient was asymptomatic. Blood pressure remains low with a systolic between 8090. PHYSICAL EXAM: VITAL SIGNS: Reviewed. GENERAL: Well-developed in no acute distress. HEENT: Head is normocephalic. Pupils are equal, round. Sclerae anicteric. Mucous membranes of the mouth are moist. Neck supple. No JVD or thyromegaly LUNGS: Respirations even and unlabored. Lungs essentially clear to auscultation bilaterally. HEART: Regular rate and rhythm. S1 and S2 heard. Systolic murmur noted. ABDOMEN: Soft. Nondistended. Nontender. EXTREMITIES: Normal range of motion. No clubbing or cyanosis. Peripheral pulses intact. Right AKA noted. Left leg with gauze dressing wrap noted. NEUROLOGIC: Awake and alert. Oriented x 3. ASSESSMENT: Right foot wound, status post right [id number] amputation Nonsustained ventricular tachycardia Nonischemic cardiomyopathy History of AICD implantation Acute on chronic heart failure with reduced ejection fraction History of nonsustained ventricular tachycardia Hyperlipidemia Diabetes Chronic kidney disease on hemodialysis Nicotine dependence History of medication noncompliance Hypotension, maintained on Midodrine outpatient, unable to tolerate BALBINA/ARB PLAN: Continue current cardiac medications Add amiodarone 200 mg twice a day for one week and then decrease to 200 mg daily Give magnesium 1 g now Continue telemetry monitoring Check TSH Hemodialysis per nephrology Further recommendations pending patient's course Nurse practitioner note has been reviewed by physician. Signing provider agrees with the documented findings, assessment, and plan of care. Objective - Vital Signs Vital signs: Vital Signs Temp 98.1 F 07/30/23 07:15 Pulse 104 H 07/30/23 07:15 Resp 22 07/30/23 08:16 BP 95/60 07/30/23 07:15 Pulse Ox 96 07/30/23 08:08 FiO2 30 07/20/23 14:29 Intake & Output 07/29/23 07/30/23 07/30/23 18:59 06:59 18:59 Output Total 100 200 Balance -100 -200 Output: Urine 100 200 Other: Voiding Method Indwelling Catheter Indwelling Catheter Indwelling Catheter - Labs CBC & Chem 7: 07/30/23 07:07 07/30/23 07:07 Labs: Abnormal Lab Results - Last 24 Hours (Table) 07/29/23 07/29/23 07/29/23 Range/Units 11:36 16:41 20:37 WBC (3.8-10.6) k/uL RBC (4.30-5.90) m/uL Hgb (13.0-17.5) gm/dL Hct (39.0-53.0) % MCHC (31.0-37.0) g/dL RDW (11.5-15.5) % Neutrophils # (1.3-7.7) k/uL Monocytes # (0-1.0) k/uL Sodium (137-145) mmol/L BUN (9-20) mg/dL Creatinine (0.66-1.25) mg/dL Glucose (74-99) mg/dL POC Glucose (mg/dL) 187 H 124 H 229 H (70-110) mg/dL Calcium (8.4-10.2) mg/dL Alkaline Phosphatase (38-126) U/L C-Reactive Protein (<1.0) mg/dL Total Protein (6.3-8.2) g/dL Albumin (3.5-5.0) g/dL 07/30/23 07/30/23 07/30/23 Range/Units 00:54 05:11 07:07 WBC 12.0 H (3.8-10.6) k/uL RBC 3.00 L (4.30-5.90) m/uL Hgb 8.5 L (13.0-17.5) gm/dL Hct 27.8 L (39.0-53.0) % MCHC 30.5 L (31.0-37.0) g/dL RDW 18.5 H (11.5-15.5) % Neutrophils # 8.6 H (1.3-7.7) k/uL Monocytes # 1.2 H (0-1.0) k/uL Sodium (137-145) mmol/L BUN (9-20) mg/dL Creatinine (0.66-1.25) mg/dL Glucose (74-99) mg/dL POC Glucose (mg/dL) 252 H 147 H (70-110) mg/dL Calcium (8.4-10.2) mg/dL Alkaline Phosphatase (38-126) U/L C-Reactive Protein (<1.0) mg/dL Total Protein (6.3-8.2) g/dL Albumin (3.5-5.0) g/dL 07/30/23 Range/Units 07:07 WBC (3.8-10.6) k/uL RBC (4.30-5.90) m/uL Hgb (13.0-17.5) gm/dL Hct (39.0-53.0) % MCHC (31.0-37.0) g/dL RDW (11.5-15.5) % Neutrophils # (1.3-7.7) k/uL Monocytes # (0-1.0) k/uL Sodium 131 L (137-145) mmol/L BUN 42 H (9-20) mg/dL Creatinine 3.13 H (0.66-1.25) mg/dL Glucose 156 H (74-99) mg/dL POC Glucose (mg/dL) (70-110) mg/dL Calcium 7.9 L (8.4-10.2) mg/dL Alkaline Phosphatase 168 H (38-126) U/L C-Reactive Protein 4.5 H (<1.0) mg/dL Total Protein 6.0 L (6.3-8.2) g/dL Albumin 2.7 L (3.5-5.0) g/dL
--- NOTE | 2023-07-30 09:28 | PN ---
PROGRESS NOTE This is a 53-year-old gentleman, who had a chronic wound right foot. The patient had a right [id number] amputation. The patient also has history of chronic renal failure, on dialysis. The patient having dialysis 3 times a week. Today, we have changed the dressing. Stump site is clean and healing. The patient also has postsurgical wound on the left leg. We have changing local wound care. PLAN: If the patient goes to retirement, will follow up office in 2 weeks for removal of stitches and dressing should be changed every other day. MMODL / IJN: [id number] /
--- NOTE | 2023-07-30 10:37 | P.PN ---
Subjective Patient is seen in follow-up for acute kidney injury, hemodialysis dependent. Has been undergoing daily hemodialysis (except 07/29/23) due to severe volume overload. Blood pressure on the lower side. Resting in bed. Tolerating dialysis well. Vital signs are stable. General: No acute distress. HEENT: Head exam is unremarkable. LUNGS: Scattered rhonchi. HEART: Rate and Rhythm are regular. ABDOMEN: Nontender. EXTREMITITES: Right AKA. 2+ edema. Objective - Vital Signs Vital signs: Vital Signs Temp 98.1 F 07/30/23 07:15 Pulse 104 H 07/30/23 07:15 Resp 22 07/30/23 08:16 BP 95/60 07/30/23 07:15 Pulse Ox 96 07/30/23 08:08 FiO2 30 07/20/23 14:29 Intake & Output 07/29/23 07/30/23 07/30/23 18:59 06:59 18:59 Output Total 100 200 Balance -100 -200 Output: Urine 100 200 Other: Voiding Method Indwelling Catheter Indwelling Catheter Indwelling Catheter - Labs CBC & Chem 7: 07/30/23 07:07 07/30/23 07:07 Labs: Abnormal Lab Results - Last 24 Hours (Table) 07/29/23 07/29/23 07/29/23 Range/Units 11:36 16:41 20:37 WBC (3.8-10.6) k/uL RBC (4.30-5.90) m/uL Hgb (13.0-17.5) gm/dL Hct (39.0-53.0) % MCHC (31.0-37.0) g/dL RDW (11.5-15.5) % Neutrophils # (1.3-7.7) k/uL Monocytes # (0-1.0) k/uL Sodium (137-145) mmol/L BUN (9-20) mg/dL Creatinine (0.66-1.25) mg/dL Glucose (74-99) mg/dL POC Glucose (mg/dL) 187 H 124 H 229 H (70-110) mg/dL Calcium (8.4-10.2) mg/dL Alkaline Phosphatase (38-126) U/L C-Reactive Protein (<1.0) mg/dL Total Protein (6.3-8.2) g/dL Albumin (3.5-5.0) g/dL 07/30/23 07/30/23 07/30/23 Range/Units 00:54 05:11 07:07 WBC 12.0 H (3.8-10.6) k/uL RBC 3.00 L (4.30-5.90) m/uL Hgb 8.5 L (13.0-17.5) gm/dL Hct 27.8 L (39.0-53.0) % MCHC 30.5 L (31.0-37.0) g/dL RDW 18.5 H (11.5-15.5) % Neutrophils # 8.6 H (1.3-7.7) k/uL Monocytes # 1.2 H (0-1.0) k/uL Sodium (137-145) mmol/L BUN (9-20) mg/dL Creatinine (0.66-1.25) mg/dL Glucose (74-99) mg/dL POC Glucose (mg/dL) 252 H 147 H (70-110) mg/dL Calcium (8.4-10.2) mg/dL Alkaline Phosphatase (38-126) U/L C-Reactive Protein (<1.0) mg/dL Total Protein (6.3-8.2) g/dL Albumin (3.5-5.0) g/dL 07/30/23 Range/Units 07:07 WBC (3.8-10.6) k/uL RBC (4.30-5.90) m/uL Hgb (13.0-17.5) gm/dL Hct (39.0-53.0) % MCHC (31.0-37.0) g/dL RDW (11.5-15.5) % Neutrophils # (1.3-7.7) k/uL Monocytes # (0-1.0) k/uL Sodium 131 L (137-145) mmol/L BUN 42 H (9-20) mg/dL Creatinine 3.13 H (0.66-1.25) mg/dL Glucose 156 H (74-99) mg/dL POC Glucose (mg/dL) (70-110) mg/dL Calcium 7.9 L (8.4-10.2) mg/dL Alkaline Phosphatase 168 H (38-126) U/L C-Reactive Protein 4.5 H (<1.0) mg/dL Total Protein 6.0 L (6.3-8.2) g/dL Albumin 2.7 L (3.5-5.0) g/dL Assessment and Plan Plan: Assessment: 1. Acute kidney injury, hemodialysis dependent. Has permacath. Maintain on hemodialysis on Saturday schedule outpatient. 2. Chronic kidney disease stage IV secondary to diabetic kidney disease cardi orenal syndrome. 3. Acute on chronic systolic CHF ejection fraction of less than 20%. 4. Volume overload. Improved with ultrafiltration. 5. Right lower extremity wound on IV antibiotics. Refused inpatient in the past. 6. Chronic hypotension maintained on midodrine. 7. Diabetes mellitus. 8. Anemia of chronic kidney disease. Iron deficiency noted. On Aranesp. 9. Hypervolemic hyponatremia. Plan: Currently seen while undergoing hemodialysis. Another treatment tomorrow. Maintain torsemide. Maintain Aranesp. Hold off on IV iron due to acute infection. Maintain fluid restriction. Strongly advised patient to be compliant with hemodialysis treatments outpatient. Prognosis guarded.
[2023-07-30] MEDS: MIDODRINE 5 MG TAB PO PRN ×2 (11:16→11:17)
[2023-07-30 11:20] LABS: Glucose,Whole Blood 137 mg/dL (70-110)
--- NOTE | 2023-07-30 12:56 | P.PN ---
Subjective Progress Note Date: 07/30/23 Principal diagnosis: Reason for follow-up is right heel diabetic foot ulcer and osteomyelitis, positive blood culture Patient is a 53-year-old male with a past medical history significant for coronary artery disease COPD diabetes mellitus hypertension hyperlipidemia VA sleep apnea end-stage renal disease on dialysis patient did have a chronic nonhealing wound to the right heel area with underlying osteomyelitis for the patient did have a multiple admission to this facility, patient did have issues with noncompliance recently signed out from correction facility and then subsequently did not show up for his dialysis and then presented to the hospital with worsening shortness of breath, The patient is status post right [id number] amputation completed on 07/26/2023. On today's evaluation that is 07/30/2023 patient remains to be afebrile, the patient is breathing comfortably on room air, the patient denies chest pain shortness of breath or cough., The patient denies nausea vomiting no abdominal pain and denies diarrhea. Pain to the right AKA stump is under control currently undergoing dialysis The patient white count of 12.0, creatinine 3.13 Objective - Vital Signs Vital signs: Vital Signs Temp 97.8 F 07/30/23 12:21 Pulse 91 07/30/23 12:21 Resp 17 07/30/23 12:21 BP 101/60 07/30/23 12:21 Pulse Ox 100 07/30/23 12:21 FiO2 30 07/20/23 14:29 Intake & Output 07/29/23 07/30/23 07/30/23 18:59 06:59 18:59 Output Total 100 200 Balance -100 -200 Output: Urine 100 200 Other: Voiding Method Indwelling Catheter Indwelling Catheter Indwelling Catheter - Exam GENERAL DESCRIPTION: Middle-age male lying in bed in no distress RESPIRATORY SYSTEM: Unlabored breathing , decreased breath sounds at bases HEART: S1 S2 regular rate and rhythm , ABDOMEN: Soft , no tenderness EXTREMITIES: Right AKA stump is currently dressed in OR dressing - Labs CBC & Chem 7: 07/30/23 07:07 07/30/23 07:07 Labs: Abnormal Lab Results - Last 24 Hours (Table) 07/29/23 07/29/23 07/30/23 Range/Units 16:41 20:37 00:54 WBC (3.8-10.6) k/uL RBC (4.30-5.90) m/uL Hgb (13.0-17.5) gm/dL Hct (39.0-53.0) % MCHC (31.0-37.0) g/dL RDW (11.5-15.5) % Neutrophils # (1.3-7.7) k/uL Monocytes # (0-1.0) k/uL Sodium (137-145) mmol/L BUN (9-20) mg/dL Creatinine (0.66-1.25) mg/dL Glucose (74-99) mg/dL POC Glucose (mg/dL) 124 H 229 H 252 H (70-110) mg/dL Calcium (8.4-10.2) mg/dL Alkaline Phosphatase (38-126) U/L C-Reactive Protein (<1.0) mg/dL Total Protein (6.3-8.2) g/dL Albumin (3.5-5.0) g/dL 07/30/23 07/30/23 07/30/23 Range/Units 05:11 07:07 07:07 WBC 12.0 H (3.8-10.6) k/uL RBC 3.00 L (4.30-5.90) m/uL Hgb 8.5 L (13.0-17.5) gm/dL Hct 27.8 L (39.0-53.0) % MCHC 30.5 L (31.0-37.0) g/dL RDW 18.5 H (11.5-15.5) % Neutrophils # 8.6 H (1.3-7.7) k/uL Monocytes # 1.2 H (0-1.0) k/uL Sodium 131 L (137-145) mmol/L BUN 42 H (9-20) mg/dL Creatinine 3.13 H (0.66-1.25) mg/dL Glucose 156 H (74-99) mg/dL POC Glucose (mg/dL) 147 H (70-110) mg/dL Calcium 7.9 L (8.4-10.2) mg/dL Alkaline Phosphatase 168 H (38-126) U/L C-Reactive Protein 4.5 H (<1.0) mg/dL Total Protein 6.0 L (6.3-8.2) g/dL Albumin 2.7 L (3.5-5.0) g/dL 07/30/23 Range/Units 11:19 WBC (3.8-10.6) k/uL RBC (4.30-5.90) m/uL Hgb (13.0-17.5) gm/dL Hct (39.0-53.0) % MCHC (31.0-37.0) g/dL RDW (11.5-15.5) % Neutrophils # (1.3-7.7) k/uL Monocytes # (0-1.0) k/uL Sodium (137-145) mmol/L BUN (9-20) mg/dL Creatinine (0.66-1.25) mg/dL Glucose (74-99) mg/dL POC Glucose (mg/dL) 137 H (70-110) mg/dL Calcium (8.4-10.2) mg/dL Alkaline Phosphatase (38-126) U/L C-Reactive Protein (<1.0) mg/dL Total Protein (6.3-8.2) g/dL Albumin (3.5-5.0) g/dL Assessment and Plan (1) Foot osteomyelitis, right Current Visit: No Status: Acute Code(s): M86.9 - OSTEOMYELITIS, UNSPECIFIED SNOMED Code(s): 3191820717869145 (2) Non compliance with medical treatment Current Visit: Yes Status: Acute Code(s): Z91.199 - PT NONCOMPL WITH OTHER MED TRTMT AND REGIMEN D/T UNSP REASON SNOMED Code(s): 7416944 (3) Bacteremia Current Visit: Yes Status: Acute Code(s): R78.81 - BACTEREMIA SNOMED Code(s): 1222074 Plan: 1-patient with a positive blood culture with gram-positive cocci questionably related to his dialysis catheter versus right heel diabetic foot infection with underlying osteomyelitis found with the patient has previously grown MRSA Pro teus strep and anaerobes and the patient still have nonhealing of this wound despite receiving antibiotic therapy since 05/15/2023, with a chance of healing of this wound with the medical therapy Minimal to impossible Patient is status post right [id number] amputation completed on 07/26/2023. 2blood culture repeat on 07/23/2023 has been negative so far. 3patient to continue with the daptomycin white count mildly elevated will monitor closely and continue supportive care Dictation was produced using [employer] dictation software. please excuse any grammatical, word or spelling errors. Time with Patient: Less than 30
--- NOTE | 2023-07-30 13:20 | P.DS ---
Providers Date of admission: 07/20/23 15:50 Expected date of discharge: 07/30/23 Attending physician: Buck Johnson Consults: 07/20/23 15:50 Consult Physician Urgent Consulting Provider: Kalani Castellanos Consult Reason/Comments: esrd on hd, volume overload Do you want consulting provider notified?: Already Contacted 07/22/23 02:07 Consult Physician Routine Consulting Provider: Yesenia Santoyo Consult Reason/Comments: gram positive cocci in chains found from blood culture Do you want consulting provider notified?: Yes 07/22/23 12:51 Consult Physician Urgent Consulting Provider: Martin Kaur Consult Reason/Comments: right heel wound Do you want consulting provider notified?: Yes 07/28/23 15:04 Consult Physician Urgent Consulting Provider: Shiv Caldwell Consult Reason/Comments: 21 beat run of ventricular tachycardia Do you want consulting provider notified?: Yes Primary care physician: [facility] Course: Chief Complaint: Short of breath This is a 53-year-old patient, follows with Dr. Rodríguez. Chronic stable medical condition include CHF EF less than 20%, COPD, diabetes mellitus type 2, hypertension, hyperlipidemia, obstructive sleep apnea, anxiety, AICD, lower extremity venous insufficiency. Patient had lower extremity wounds and has been followed by ID and Dr. Lugo from vascular. in the hospital from May 14 through May 29. Patient had worsening wound after right foot. has been told multiple times to Dr. Lugo to proceed with amputation. Last admission he also was on IV Bumex drip and dobutamine dr ip for congestive heart failure. Was discharged home on antibiotics. Admitted from June 05 through June 10. Presented again with worsening wound. malodorous drainage. Denies fever and chills. Tired. Does not want surgery. Reluctant. And/or nystagmus and need for the same. It was explained to her that antibiotics are not helping. Patient was seen by cardiology Dr. Lugo from vascular. Patient readmitted on June 16 and on July 04. I seen the patient on June 16 admission. Patient initially agreed for amputation then declined the same. Patient discharged July 09. Patient now presents to ER with increasing shortness of breath. Mrs. dialysis on Saturday and because they will have right. He did go to dialysis yesterday and for short time then sent to the ER. Significant edema. Does make urine. Some cough. No fever no chills. Eating fair. Patient was dialyzed last night in the ER. Also placed on BiPAP. 07/22/2023: Patient had bleeding from right heel wound. Vascular Dr. Lugo consulted. Breathing better. Chronic stable dialysis tomorrow. Eating fair 07/23/2023: Right heel in the dressing. Discussed with Dr. Lugo. Amputation would be the only option. Discussed with the patient. Is not sure again. Getting dialyzed today. Eating well 07/24/2023: Had a very lengthy discussion with the patient today. He does understand he is being postponing surgery for a very long time. Reemphasized that his overall condition is getting much worse including not being on dialysis and recurrent infections in the leg. Patient has decided to proceed with amputation. I called Dr. Lugo. Spoke to the patient. Cardiology was again consulted for the clearance for the same. Patient now being scheduled for this coming Saturday. Total time spent today about 70 minutes with over 45 minutes of discussion. Discussed with ID. Current antibiotics to continue. 07/25/2023: On the recliner. Patient is ready for amputation tomorrow. No new issues. Discussed. 07/26/2023: Laying in bed watching television. Some pain in the right leg stump. Had above amputation by Dr. Lugo on the right side today. 07/27/2023: Getting dialysis today. Pain in the right stump. Eating close to 100%. Discussed. 07/28/2023: Oral intake fair. Mostly sleepy on current pain medications. Does also more medications. Discussed not safe to give more. 07/29/2023: Patient had been sleepy most of the time. Has remained to do so. Therefore Dilaudid is being discontinued. Patient does get Percocet. As been getting daily dialysis. Averaging about 50% oral intake. He also can eat better after Dilaudid was discontinued. As he be more awake. Patient had a 21 beat of non-SVT. Seen by cardiology Continue with metoprolol. 07/30/2023: Patient more awake today. Pain medication discussed. Will also DC patient's Seroquel. Discussed with ID about antibiotics. No need for further antibiotics. Daptomycin being discontinued. Patient follow-up with Dr. Lugo for wound care. And also follow-up with cardiology. They've added amiodarone. 200 mg twice a day for 7 days then 200 mg daily to continue Discussion and discharge planning more than 35 minutes Social history: Lives with his 20-year-old son. Disabled. 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 Smoking 2 packs a day for most of his life . Stop drinking heavy alcohol about 20 years ago. Has done marijuana. Physical examination: VITAL SIGNS: 97.8, 91, 17, 101/60, 100% room air GENERAL: In dialysis today EYES: Pupils equal. Conjunctiva normal. HEENT: External appearance of nose and ears normal, oral cavity grossly normal. NECK: JVD unable to assess; masses not palpable. HEART: First and second heart sounds are normal; significant edema LUNGS: Respiratory rate normal; diminished breath sounds ABDOMEN: Soft, nontender, liver spleen not palpable, no masses palpable. Scrotal swelling PSYCH: More awake but lethargic. Answering questions appropriately NEUROLOGICAL: Cranial nerves grossly intact. No facial asymmetry DERMATOLOGICAL: Right Above knee amputation with a dressing of the stump INVESTIGATIONS, reviewed in the clinical context: 07/30/2023: White count 12 hemoglobin 8.5 platelets 229 potassium 4.1 BUN 42 creatinine 3.13 07/27/2022: White count 14.1 in globin 8.7 potassium 4.3 creatinine 2.48 07/21/2023: White count 6.9 hemoglobin 10.8 platelets 193 sodium 133 potassium 5.7 BUN 6615 2.14 EKG tracing personally reviewed by me-sinus tachycardia. Some ST-T wave changes. Chest x-ray film personally reviewed by me-cardiomegaly. Some venous prominence Assessment and plan: -Acute on chronic congestive heart failure nonischemic cardiomyopathy systolic dysfunction EF less than 20%: Worsening from missed hemodialysis.: Received IV Lasix. Hemodialysis. AICD. Fluid restriction 1500 mL. Being followed by cardiology and nephrology -Acute hypoxic respiratory failure from fluid overload/CHF.: Improved Initially on BiPAP last night in the ER. Currently on room air -Acute on chronic recurrent right lower leg cellulitis, infected right heel diabetic ulcer with prior history of debridement. Has been told multiple times about surgery. IV cefepime and IV daptomycin-completed course not healed with antibiotics and debridement alone. had repeatedly turned down surgery as he has not been able to make a decision-finally agreed Right above-knee amputation by Dr. Yared Lugo on June 2019.-Wound care to follow - COPD in a previous smoker Jigar. Nathalie. -21 beat run of NSVT. Has AICD. Being followed by cardiology. Amiodarone 200 mg twice a day for 7 days then 200 mg a day -Diabetes mellitus type 2 chronically on insulin, uncontrolled with [id number] Levemir 28 units subcu Diabetic diet. Accu-Cheks and sliding scale -Iron deficiency anemia aranesp -Hyperlipidemia Lipitor -Chronic kidney disease stage III from diabetic nephropathy and nephrosclerosis Baseline creatinine of 1.2 on May 14. -Hemodialysis dependent acute kidney injury with severe volume overload. has been noncompliant with dialysis-outpatient. Follow with nephrology -Hyponatremia-mild Fluid restriction -Chronic low back pain. Patient's had pain on and off for about 10 years. Has had prior surgery. Does not remember who did the surgery. When necessary pain medication -Essential hypertension Lopressor -Obstructive sleep apnea sometimes uses CPAP machine -Diabetic peripheral neuropathy -Anxiety Ativan when necessary -DJD Tylenol when necessary -AICD -Lower extremity chronic venous insufficiency -Full code Disposition: [facility]. Labs: CBC BMP: 3 days Plan - Discharge Summary New Discharge Prescriptions: New Darbepoetin Tae [Aranesp] 40 mcg SQ Q7D each Amiodarone [Cordarone] 200 mg PO BID tab Continue SILVER sulfADIAZINE CREAM [Silvadene Cream] 1 applic TOPICAL BID@0800,1700 Lactulose [Cephulac] 20 gm PO DAILY PRN ml PRN Reason: Constipation DULoxetine HCL [Cymbalta] 30 mg PO DAILY cap traZODone HCL [Desyrel] 50 mg PO HS PRN tab PRN Reason: Insomnia Aspirin 81 mg PO DAILY Famotidine [Pepcid] 20 mg PO DAILY Insulin Glargine,Hum.rec.anlog [Toujeo Solostar] 28 units SQ HS Midodrine HCl [ProAmatine] 10 mg PO TID@0730,1100,1600 Multivitamins, Thera [Multivitamin (formulary)] 1 tab PO DAILY Albuterol Inhaler [Ventolin Hfa Inhaler] 2 puff INHALATION RT-QID PRN PRN Reason: Shortness Of Breath Ipratropium-Albuterol Nebulize [Duoneb 0.5 mg-3 mg/3 ml Soln] 3 ml INHALATION RT-QID each Folic Acid 1 mg PO DAILY tab fluPHENAZine [Prolixin] 3 mg PO HS tab Acetaminophen Tab [Tylenol] 650 mg PO Q6HR PRN tab PRN Reason: Mild Pain Or Fever > 100.5 Thiamine [Vitamin B-1] 100 mg PO DAILY #30 tablet OLANZapine [ZyPREXA] 5 mg PO TID PRN tab PRN Reason: Agitation Metoprolol Tartrate [Lopressor] 25 mg PO BID Torsemide [Soaanz] 40 mg PO TUTHSA@1000 Torsemide [Soaanz] 40 mg PO SUMOWEFR@0700 INSULIN ASPART (NovoLOG) [NovoLOG (formulary)] 5 unit SQ AC-TID each Zinc Sulfate [Orazinc] 220 mg PO DAILY 14 Days #14 cap Midodrine [ProAmatine] 5 - 10 mg PO PER PROTOCOL PRN tab PRN Reason: Blood Pressure - Low Ascorbic Acid [Vitamin C] 1,000 mg PO DAILY tab INSULIN ASPART (NovoLOG) [NovoLOG (formulary)] See Protocol SQ ACHS HYDROcodone/APAP 5-325MG [[place] 5-325] 1 tab PO Q6HR PRN #412 tab PRN Reason: Pain Discontinued Heparin Sodium,Porcine (1 ml) [Heparin Sodium] 5,000 unit SQ TID@0700,1500,2300 QUEtiapine [SEROquel] 12.5 mg PO BID PRN PRN Reason: Agitation DAPTOmycin [Cubicin] 500 mg IVPB Q48H #10 each Cefepime [Maxipime] 2 gm IVPB Q48H #10 each metroNIDAZOLE [Flagyl] 500 mg PO TID@0700,1500,2300 10 Days #30 capsule QUEtiapine [SEROquel] 12.5 mg PO BID Discharge Medication List Albuterol Inhaler [Ventolin Hfa Inhaler] 2 puff INHALATION RT-QID PRN 07/06/22 [History] SILVER sulfADIAZINE CREAM [Silvadene Cream] 1 applic TOPICAL BID@0800,1700 06/04/23 [History] Acetaminophen Tab [Tylenol] 650 mg PO Q6HR PRN tab 07/02/23 [Rx] DULoxetine HCL [Cymbalta] 30 mg PO DAILY cap 07/02/23 [Rx] Folic Acid 1 mg PO DAILY tab 07/02/23 [Rx] Ipratropium-Albuterol Nebulize [Duoneb 0.5 mg-3 mg/3 ml Soln] 3 ml INHALATION RT-QID each 07/02/23 [Rx] Lactulose [Cephulac] 20 gm PO DAILY PRN ml 07/02/23 [Rx] OLANZapine [ZyPREXA] 5 mg PO TID PRN tab 07/02/23 [Rx] Thiamine [Vitamin B-1] 100 mg PO DAILY #30 tablet 07/02/23 [Rx] fluPHENAZine [Prolixin] 3 mg PO HS tab 07/02/23 [Rx] traZODone HCL [Desyrel] 50 mg PO HS PRN tab 07/02/23 [Rx] Aspirin 81 mg PO DAILY 07/04/23 [History] Famotidine [Pepcid] 20 mg PO DAILY 07/04/23 [History] Insulin Glargine,Hum.rec.anlog [Tounenoo Solostar] 28 units SQ HS 07/04/23 [History] Metoprolol Tartrate [Lopressor] 25 mg PO BID 07/04/23 [History] Midodrine HCl [ProAmatine] 10 mg PO TID@0730,1100,1600 07/04/23 [History] Multivitamins, Thera [Multivitamin (formulary)] 1 tab PO DAILY 07/04/23 [History] Torsemide [Soaanz] 40 mg PO SUMOWEFR@0700 07/04/23 [History] Torsemide [Soaanz] 40 mg PO TUTHSA@1000 07/04/23 [History] Ascorbic Acid [Vitamin C] 1,000 mg PO DAILY tab 07/09/23 [Rx] INSULIN ASPART (NovoLOG) [NovoLOG (formulary)] 5 unit SQ AC-TID each 07/09/23 [Rx] Midodrine [ProAmatine] 5 - 10 mg PO PER PROTOCOL PRN tab 07/09/23 [Rx] Zinc Sulfate [Orazinc] 220 mg PO DAILY 14 Days #14 cap 07/09/23 [Rx] INSULIN ASPART (NovoLOG) [NovoLOG (formulary)] See Protocol SQ ACHS 07/20/23 [History] Amiodarone [Cordarone] 200 mg PO BID tab 07/30/23 [Rx] Darbepoetin Tae [Aranesp] 40 mcg SQ Q7D each 07/30/23 [Rx] HYDROcodone/APAP 5-325MG [[place] 5-325] 1 tab PO Q6HR PRN #412 tab 07/30/23 [Rx] Follow up Appointment(s)/Referral(s): Shiv Caldwell MD [Medical Doctor] - 2 Weeks Hany Rodríguez MD [Primary Care Provider] - 1-2 days Martin Kaur MD [STAFF PHYSICIAN] - 1 Week Activity/Diet/Wound Care/Special Instructions: amiodarone 200 mg po bid for 7 days then 200 mg po daily orders from dr kaur
[2023-07-30 13:37] VITALS: BP 111/63; PULSE 81; RESP 16; TEMP 98.4
== END 2023-07-30 16:20 | DRG 239 ==
LOC: EC 13:48 → 3SCARD 15:50 → 4SSUR 07-28 03:51
PROVIDERS: ADMIT Hospitalist; ATTEND Hospitalist
PROC: 5A1D70Z Performance of Urinary Filtration, Intermittent, Less than 6 Hours Per Day (ICD-10-PCS; 2023-07-20)
PROC: 5A09357 Assistance with Respiratory Ventilation, Less than 24 Consecutive Hours, Continuous Positive Airway Pressure (ICD-10-PCS; 2023-07-20)
PROC: 0Y6C0Z2 Detachment at Right Upper Leg, Mid, Open Approach (ICD-10-PCS; principal; 2023-07-26 13:00)
DX: I13.2 Hypertensive heart and chronic kidney disease with heart failure and with stage 5 chronic kidney disease, or end stage renal disease (principal); I50.23 Acute on chronic systolic (congestive) heart failure; J96.01 Acute respiratory failure with hypoxia; N18.6 End stage renal disease; I47.20 Ventricular tachycardia, unspecified; J44.1 Chronic obstructive pulmonary disease with (acute) exacerbation; E87.1 Hypo-osmolality and hyponatremia; L03.115 Cellulitis of right lower limb; L97.419 Non-pressure chronic ulcer of right heel and midfoot with unspecified severity; M86.9 Osteomyelitis, unspecified; N17.9 Acute kidney failure, unspecified; I47.10 Supraventricular tachycardia, unspecified; E11.52 Type 2 diabetes mellitus with diabetic peripheral angiopathy with gangrene; E11.42 Type 2 diabetes mellitus with diabetic polyneuropathy; E11.621 Type 2 diabetes mellitus with foot ulcer; E11.69 Type 2 diabetes mellitus with other specified complication; Z99.2 Dependence on renal dialysis; I95.89 Other hypotension; I42.8 Other cardiomyopathies; D63.1 Anemia in chronic kidney disease; E11.628 Type 2 diabetes mellitus with other skin complications; I95.9 Hypotension, unspecified; E66.9 Obesity, unspecified; I27.20 Pulmonary hypertension, unspecified; Z68.34 Body mass index [BMI] 34.0-34.9, adult; E11.65 Type 2 diabetes mellitus with hyperglycemia; G89.29 Other chronic pain; I08.1 Rheumatic disorders of both mitral and tricuspid valves; I25.10 Atherosclerotic heart disease of native coronary artery without angina pectoris; I25.2 Old myocardial infarction; I25.5 Ischemic cardiomyopathy; I48.91 Unspecified atrial fibrillation; I87.2 Venous insufficiency (chronic) (peripheral); Z87.01 Personal history of pneumonia (recurrent); D50.9 Iron deficiency anemia, unspecified; E78.5 Hyperlipidemia, unspecified; F17.210 Nicotine dependence, cigarettes, uncomplicated; F41.9 Anxiety disorder, unspecified; F90.9 Attention-deficit hyperactivity disorder, unspecified type; G47.00 Insomnia, unspecified; G47.33 Obstructive sleep apnea (adult) (pediatric); M54.9 Dorsalgia, unspecified; K59.00 Constipation, unspecified; M19.90 Unspecified osteoarthritis, unspecified site; N50.89 Other specified disorders of the male genital organs; Z63.72 Alcoholism and drug addiction in family; Z79.4 Long term (current) use of insulin; Z79.82 Long term (current) use of aspirin; Z79.899 Other long term (current) drug therapy; Z81.1 Family history of alcohol abuse and dependence; Z86.14 Personal history of Methicillin resistant Staphylococcus aureus infection; Z86.16 Personal history of COVID-19; Z91.148 Patient's other noncompliance with medication regimen for other reason; Z91.158 Patient's noncompliance with renal dialysis for other reason; Z91.199 Patient's noncompliance with other medical treatment and regimen due to unspecified reason; Z95.810 Presence of automatic (implantable) cardiac defibrillator; Z28.21 Immunization not carried out because of patient refusal; Z28.311 Partially vaccinated for COVID-19; Z98.1 Arthrodesis status
CPT/HCPCS: 36415; 64445; 64447; 71045; 80048; 80053; 82728; 83540; 83550; 83605; 83735; 83880; 84100; 84145; 84439; 84443; 84484; 85025; 85610; 85730; 86140; 86706; 86850; 86900; 86901; 87040; 87340; 87635; 90935; 93005; 94640; 94660; 94760; 96365; 96366; 96368; 96372; 96375; 96376; 99291

== ENCOUNTER 2023-08-21 23:01 | Inpatient (IN) | payer MEDICARE, OTHER ==
[2023-08-21 23:17] LABS: Glucose,Whole Blood 105 mg/dL (70-110)
--- NOTE | 2023-08-21 23:57 | XR ---
EXAM: XR Chest, 2 Views CLINICAL HISTORY: ITS.REASON XR Reason: difficulty breathing TECHNIQUE: Frontal and lateral views of the chest. COMPARISON: CXR July 20, 2022. FINDINGS: Lungs: Pulmonary vascular congestion. No consolidation. Pleural space: Large RIGHT pleural effusion. No pneumothorax. Heart: Cardiomegaly. Mediastinum: Unremarkable. Normal mediastinal contour. Bones/joints: Unremarkable. No acute fracture. Tubes, lines and devices: RIGHT IJ catheter terminates in the RIGHT atrium. AICD/pacemaker. IMPRESSION: Large RIGHT pleural effusion.
[2023-08-22 00:11] LABS: INR 1.4 (<1.2); Partial Thromboplastin Time 27.4 sec (22.0-30.0); Prothrombin Time 14.6 sec (10.0-12.5)
[2023-08-22 00:13] LABS: Anisocytosis Slight; Basophils % (A) 0 %; Eosinophils # (A) 0.1 k/uL (0-0.7); Eosinophils % (A) 0 %; HCT 35.9 % (39.0-53.0); Hypochromasia Moderate; Lymphocytes # (A) 0.7 k/uL (1.0-4.8); Lymphocytes % (A) 3 %; MCH 28.3 pg (25.0-35.0); MCHC 30.7 g/dL (31.0-37.0); MCV 92.1 fL (80.0-100.0); Mean Platelet Volume 9.3; Monocytes % (A) 9 %; Neutrophils # (A) 19.6 k/uL (1.3-7.7); Neutrophils % (A) 86 %; Platelet Count 189 k/uL (150-450); WBC 22.8 k/uL (3.8-10.6)
[2023-08-22 00:18] LABS: ALT 17 U/L (4-49); AST 29 U/L (17-59); African American GFR (CKD) 11 (>60 ml/min/1.73 sqM); Albumin 3.5 g/dL (3.5-5.0); Alkaline Phosphatase 187 U/L (38-126); Anion Gap 15 mmol/L; Blood Urea Nitrogen 83 mg/dL (9-20); Calcium 8.9 mg/dL (8.4-10.2); Carbon Dioxide 23 mmol/L (22-30); Chloride 94 mmol/L (98-107); Glucose 94 mg/dL (74-99); Magnesium 2.3 mg/dL (1.6-2.3); Non-African American GFR(CKD) 9 (>60 ml/min/1.73 sqM); Potassium 5.4 mmol/L (3.5-5.1); Sodium 132 mmol/L (137-145); Total Bilirubin 0.9 mg/dL (0.2-1.3); Total Protein 6.9 g/dL (6.3-8.2)
[2023-08-22 00:47] LABS: NT-Pro-B-Type Natriuretic Pept 72100 pg/mL
[2023-08-22] MEDS ORDERED: NALOXONE 0.4 MG/ML 1 ML VIAL IV PRN (01:40)
--- NOTE | 2023-08-22 01:40 | ED ---
SOB HPI - General Chief Complaint: Shortness of Breath Stated Complaint: SOB Time Seen by Provider: 08/21/23 23:05 Source: patient, EMS Mode of arrival: EMS Limitations: no limitations - History of Present Illness Initial Comments: 53-year-old male with past medical history of end-stage renal disease on hemodialysis, ischemic cardiomyopathy, COPD who presents to the emergency department reporting shortness of breath. States that he is supposed to have dialysis on Saturday, and Saturdays. He missed dialysis yesterday because he had a very important meeting to go to. It was recommended by the facility that he get his dialysis done however the patient was aware of the risks and continue to make the choice to not go to dialysis. Today the patient became short of breath. Admits to lower extremity edema. Does have a nonproductive cough. Denies hemoptysis. No fevers. No nausea or vomiting. Patient receives his dialysis and his right chest wall. He does have a history of COPD and has used 5 nebulizer treatments today. No other alleviating, precipitating or modifying factors - Related Data Home Medications Medication Instructions Recorded Confirmed Albuterol Inhaler [Ventolin Hfa 2 puff INHALATION RT-QID PRN 07/06/22 08/22/23 Inhaler] SILVER sulfADIAZINE CREAM 1 applic TOPICAL SUWEFR 06/04/23 08/22/23 [Silvadene Cream] Aspirin 81 mg PO DAILY 07/04/23 08/22/23 Famotidine [Pepcid] 20 mg PO DAILY 07/04/23 08/22/23 Insulin Glargine,Hum.rec.anlog 28 units SQ HS 07/04/23 08/22/23 [Trudi Bailey] Metoprolol Tartrate [Lopressor] 25 mg PO BID 07/04/23 08/22/23 Midodrine HCl [ProAmatine] 10 mg PO TID@0730,1100,1600 07/04/23 08/22/23 Multivitamins, Thera [Multivitamin 1 tab PO DAILY 07/04/23 08/22/23 (formulary)] Torsemide [Soaanz] 40 mg PO SUMOWEFR@0700 07/04/23 08/22/23 Torsemide [Soaanz] 40 mg PO TUTHSA@1000 07/04/23 08/22/23 INSULIN ASPART (NovoLOG) [NovoLOG See Protocol SQ ACHS 07/20/23 08/22/23 (formulary)] ALPRAZolam [Xanax] 0.5 mg PO Q8H PRN 08/22/23 08/22/23 Amiodarone [Cordarone] 200 mg PO DAILY 08/22/23 08/22/23 HYDROcodone/APAP 5-325MG [[place] 1 tab PO Q8HR 08/22/23 08/22/23 5-325] traZODone HCL [Desyrel] 50 mg PO HS PRN 08/22/23 08/22/23 Previous Rx's Medication Instructions Recorded Acetaminophen Tab [Tylenol] 650 mg PO Q6HR PRN tab 07/02/23 DULoxetine HCL [Cymbalta] 30 mg PO DAILY cap 07/02/23 Folic Acid 1 mg PO DAILY tab 07/02/23 Ipratropium-Albuterol Nebulize 3 ml INHALATION RT-QID each 07/02/23 [Duoneb 0.5 mg-3 mg/3 ml Soln] Lactulose [Cephulac] 20 gm PO DAILY PRN ml 07/02/23 Thiamine [Vitamin B-1] 100 mg PO DAILY #30 tablet 07/02/23 fluPHENAZine [Prolixin] 3 mg PO HS tab 07/02/23 Ascorbic Acid [Vitamin C] 1,000 mg PO DAILY tab 07/09/23 Allergies Allergy/AdvReac Type Severity Reaction Status Date / Time azithromycin Allergy Anaphylaxis Verified 08/22/23 08:29 gemfibrozil [From Lopid] Allergy Rash/Hives Verified 08/22/23 08:29 Review of Systems ROS Statement: Those systems with pertinent positive or pertinent negative responses have been documented in the HPI. ROS Other: All systems not noted in ROS Statement are negative. Past Medical History Past Medical History: Asthma, Coronary Artery Disease (CAD), Chest Pain / Angina, Heart Failure, COPD, Diabetes Mellitus, GERD/Reflux, Hyperlipidemia, Hypertension, Myocardial Infarction ([place]), Pneumonia, Sleep Apnea/CPAP/BIPAP, Supraventricular Tachycardia (SVT) Additional Past Medical History / Comment(s): Ischemic cardiomyopathy, chronic CHF, SVT, IDDM type II, KAMINI with CPAP occasionally used, chronic cervical/back pain, DJD, diabetic foot wounds x 4 months. Dialysis Last Myocardial Infarction Date:: 12/11/17 History of Any Multi-Drug Resistant Organisms: MRSA Date of last positivie culture/infection: 06/15/23 MDRO Source:: Right Foot Past Surgical History: Adenoidectomy, AICD, Back Surgery, Cholecystectomy, EPS, Heart Catheterization, Pacemaker, Tonsillectomy Additional Past Surgical History / Comment(s): 12/10/17 cardiac cath, previous cardiac cath, 09/02/14 AICD/pacer, EGD/colonoscopy, low back surgery with fusion. Past Anesthesia/Blood Transfusion Reactions: Motion Sickness Additional Past Anesthesia/Blood Transfusion Reaction / Comment(s): Pt states he received blood with back surgery without reaction. Type of Cardiac Device: Permanent Pacemaker, AICD Device Placement Date:: 09-02-14 Past Psychological History: ADD/ADHD, Anxiety Smoking Status: Current every day smoker Past Alcohol Use History: Occasional Past Drug Use History: Marijuana - Past Family History Father Additional Family Medical History / Comment(s): Pt has not kept in close contact with his father for many yrs. Father was an alcoholic and pt believes he has from cirrhosis of the liver. Mother History Unknown: Yes Additional Family Medical History / Comment(s): Pt is not in contact with his mother or his father who he has heard had . General Exam Limitations: no limitations General appearance: alert, in distress Head exam: Present: atraumatic, normocephalic, normal inspection Eye exam: Present: normal appearance, PERRL, EOMI. Absent: scleral icterus, conjunctival injection, periorbital swelling ENT exam: Present: mucous membranes dry Respiratory exam: Present: rales, decreased breath sounds, other (tachypnia) Cardiovascular Exam: Present: regular rate, normal rhythm, normal heart sounds. Absent: systolic murmur, diastolic murmur, rubs, gallop, clicks GI/Abdominal exam: Present: soft, normal bowel sounds. Absent: distended, tenderness, guarding, rebound, rigid Extremities exam: Present: pedal edema, other (right aka) Neurological exam: Present: alert, oriented X3 Course Vital Signs 08/21/23 08/21/23 08/22/23 23:02 23:08 00:00 Temperature 99 F Pulse Rate 80 79 74 Pulse Rate [ Icu Staff Nurse ] Respiratory 16 24 20 Rate Blood Pressure 100/67 103/73 102/69 Blood Pressure [Left Arm] O2 Sat by Pulse 98 98 99 Oximetry 08/22/23 08/22/23 08/22/23 00:04 01:00 02:00 Temperature Pulse Rate 73 75 75 Pulse Rate [ Icu Staff Nurse ] Respiratory 22 23 24 Rate Blood Pressure 92/61 90/72 102/70 Blood Pressure [Left Arm] O2 Sat by Pulse 99 100 95 Oximetry 08/22/23 08/22/23 08/22/23 02:14 02:24 02:30 Temperature Pulse Rate 74 76 73 Pulse Rate [ Icu Staff Nurse ] Respiratory 16 Rate Blood Pressure 100/67 Blood Pressure [Left Arm] O2 Sat by Pulse 100 Oximetry 08/22/23 08/22/23 08/22/23 03:00 04:00 05:00 Temperature Pulse Rate 73 75 75 Pulse Rate [ Icu Staff Nurse ] Respiratory 16 10 L 12 Rate Blood Pressure 98/66 98/64 95/62 Blood Pressure [Left Arm] O2 Sat by Pulse 100 98 100 Oximetry 08/22/23 08/22/23 08/22/23 06:00 07:55 14:00 Temperature 97.7 F Pulse Rate 73 75 Pulse Rate [ 75 Icu Staff Nurse ] Respiratory 15 18 20 Rate Blood Pressure 97/65 94/64 Blood Pressure 103/73 [Left Arm] O2 Sat by Pulse 100 90 L Oximetry 08/22/23 08/22/23 08/22/23 14:42 14:50 19:43 Temperature Pulse Rate 79 77 73 Pulse Rate [ Icu Staff Nurse ] Respiratory Rate Blood Pressure Blood Pressure [Left Arm] O2 Sat by Pulse Oximetry 08/22/23 08/22/23 19:53 20:05 Temperature 98.3 F Pulse Rate 72 73 Pulse Rate [ Icu Staff Nurse ] Respiratory 22 Rate Blood Pressure 98/72 Blood Pressure [Left Arm] O2 Sat by Pulse 98 Oximetry Medical Decision Making - Medical Decision Making Was pt. sent in by a medical professional or institution (, PA, STITCH BONDING MACHINE TENDER HELPER, urgent care, hospital, or long term...) When possible be specific @ -Patient was sent in by his rehab facility Did you speak to anyone other than the patient for history (EMS, parent, family, police, friend...)? What history was obtained from this source @ -Spoke with EMS Did you review nursing and triage notes (agree or disagree)? Why? @ -I reviewed and agree with nursing and triage notes Were old charts reviewed (outside hosp., previous admission, EMS record, old E KG, old radiological studies, urgent care reports/EKG's, long term records)? Report findings @ -I reviewed patient's discharge summary from July 30 Differential Diagnosis (chest pain, altered mental status, abdominal pain women, abdominal pain men, vaginal bleeding, weakness, fever, dyspnea, syncope, headache, dizziness, GI bleed, back pain, seizure, CVA, palpatations, mental health, musculoskeletal)? @ -Differential Dyspnea: Coronary syndrome, arrhythmia, tamponade, asthma, COPD, pulmonary embolism, pneumonia, pneumothorax, pulmonary effusion, anaphylaxis, diabetic ketoacidosis, flailed chest, pulmonary contusion, diaphragmatic rupture, anemia, neuromuscular, this is not meant to be an all-inclusive list. EKG interpreted by me (3pts min.). @ -Yes and demonstrates sinus rhythm with a rate of 79. WI interval 220. QRS 113. QTc of 422. There is low voltage in the inferior leads. No ST segment elevation X-rays interpreted by me (1pt min.). @ -Yes and demonstrates a large pleural effusion CT interpreted by me (1pt min.). @ -None done U/S interpreted by me (1pt. min.). @ -None done What testing was considered but not performed or refused? (CT, X-rays, U/S, labs)? Why? @ -None What meds were considered but not given or refused? Why? @ -None Did you discuss the management of the patient with other professionals (professionals i.e. , PA, STITCH BONDING MACHINE TENDER HELPER, lab, RT, psych nurse, social science research assistant, manager market development, teacher, compliance officer, case operator)? Give summary @ -Spoke with Dr. Johnson for admission Was smoking cessation discussed for >3mins.? @ -No Was critical care preformed (if so, how long)? @ -No Were there social determinants of health that impacted care today? How? (Mattie elessness, low income, unemployed, alcoholism, drug addiction, transportation, low edu. Level, literacy, decrease access to med. care, mcc, rehab)? @ -No Was there de-escalation of care discussed even if they declined (Discuss DNR or withdrawal of care, Hospice)? DNR status @ -No What co-morbidities impacted this encounter? (DM, HTN, Smoking, COPD, CAD, Cancer, CVA, ARF, Chemo, Hep., AIDS, mental health diagnosis, sleep apnea, morbid obesity)? @ -Diabetes, end-stage renal disease, heart failure, chronic lower extremity wounds with amputation, obesity Was patient admitted / discharged? Hospital course, mention meds given and route, prescriptions, significant lab abnormalities, going to OR and other pertinent info. @ -Upon arrival patient was placed into room 2. Thorough history and physical exam was performed. He is on 3 L of oxygen. He is tachypneic. Laboratory studies are conducted and chest x-ray was performed. I did speak with Dr. Castellanos who will arrange the patient's dialysis. He will be given 60 mg of Lasix at this time - it is unclear how much urine the patient makes but we will attempt this. Spoke with Dr. Johnson agreed to admit the patient Undiagnosed new problem with uncertain prognosis? @ -yes Drug Therapy requiring intensive monitoring for toxicity (Heparin, Nitro, Insulin, Cardizem)? @ -No Were any procedures done? @ -No Diagnosis/symptom? @ -Acute respiratory insufficiency, large pleural effusion, pulmonary edema, end-stage renal disease on hemodialysis, medical noncompliance Acute, or Chronic, or Acute on Chronic? @ -Acute on chronic Uncomplicated (without systemic symptoms) or Complicated (systemic symptoms)? @ -Complicated Side effects of treatment? @ -No Exacerbation, Progression, or Severe Exacerbation? @ -Yes Poses a threat to life or bodily function? How? (Chest pain, [place], [place], pneumonia, PE, COPD, DKA, ARF, appy, cholecystitis, CVA, Diverticulitis, Homicidal, Suicidal, threat to staff... and all critical care pts) @ -Yes, patient runs the risk of dying due to his noncompliance - Lab Data Result diagrams: 08/31/23 04:20 08/31/23 04:20 Lab Results 08/21/23 08/21/23 08/21/23 Range/Units 23:14 23:30 23:30 WBC 22.8 H (3.8-10.6) k/uL RBC 3.90 L (4.30-5.90) m/uL Hgb 11.0 L (13.0-17.5) gm/dL Hct 35.9 L (39.0-53.0) % MCV 92.1 (80.0-100.0) fL MCH 28.3 (25.0-35.0) pg MCHC 30.7 L (31.0-37.0) g/dL RDW 17.0 H (11.5-15.5) % Plt Count 189 (150-450) k/uL MPV 9.3 Neutrophils % 86 % Lymphocytes % 3 % Monocytes % 9 % Eosinophils % 0 % Basophils % 0 % Neutrophils # 19.6 H (1.3-7.7) k/uL Lymphocytes # 0.7 L (1.0-4.8) k/uL Monocytes # 2.0 H (0-1.0) k/uL Eosinophils # 0.1 (0-0.7) k/uL Basophils # 0.0 (0-0.2) k/uL Hypochromasia Moderate Anisocytosis Slight PT 14.6 H (10.0-12.5) sec INR 1.4 H (<1.2) APTT 27.4 (22.0-30.0) sec Sodium (137-145) mmol/L Potassium (3.5-5.1) mmol/L Chloride (98-107) mmol/L Carbon Dioxide (22-30) mmol/L Anion Gap mmol/L BUN (9-20) mg/dL Creatinine (0.66-1.25) mg/dL Est GFR (CKD-EPI)AfAm (>60 ml/min/1.73 sqM) Est GFR (CKD-EPI)NonAf (>60 ml/min/1.73 sqM) Glucose (74-99) mg/dL POC Glucose (mg/dL) 105 (70-110) mg/dL POC Glu Food Service Technician ID Americo Koenig Plasma Lactic Acid Shane (0.7-2.0) mmol/L Calcium (8.4-10.2) mg/dL Magnesium (1.6-2.3) mg/dL Total Bilirubin (0.2-1.3) mg/dL AST (17-59) U/L ALT (4-49) U/L Alkaline Phosphatase (38-126) U/L Troponin I (0.000-0.034) ng/mL NT-Pro-B Natriuret Pep pg/mL Total Protein (6.3-8.2) g/dL Albumin (3.5-5.0) g/dL Influenza Type A (PCR) (Not Detectd) Influenza Type B (PCR) (Not Detectd) RSV (PCR) (Not Detectd) SARS-CoV-2 (PCR) (Not Detectd) 08/21/23 08/21/23 08/21/23 Range/Units 23:30 23:30 23:30 WBC (3.8-10.6) k/uL RBC (4.30-5.90) m/uL Hgb (13.0-17.5) gm/dL Hct (39.0-53.0) % MCV (80.0-100.0) fL MCH (25.0-35.0) pg MCHC (31.0-37.0) g/dL RDW (11.5-15.5) % Plt Count (150-450) k/uL MPV Neutrophils % % Lymphocytes % % Monocytes % % Eosinophils % % Basophils % % Neutrophils # (1.3-7.7) k/uL Lymphocytes # (1.0-4.8) k/uL Monocytes # (0-1.0) k/uL Eosinophils # (0-0.7) k/uL Basophils # (0-0.2) k/uL Hypochromasia Anisocytosis PT (10.0-12.5) sec INR (<1.2) APTT (22.0-30.0) sec Sodium 132 L (137-145) mmol/L Potassium 5.4 H (3.5-5.1) mmol/L Chloride 94 L (98-107) mmol/L Carbon Dioxide 23 (22-30) mmol/L Anion Gap 15 mmol/L BUN 83 H (9-20) mg/dL Creatinine 6.21 H (0.66-1.25) mg/dL Est GFR (CKD-EPI)AfAm 11 (>60 ml/min/1.73 sqM) Est GFR (CKD-EPI)NonAf 9 (>60 ml/min/1.73 sqM) Glucose 94 (74-99) mg/dL POC Glucose (mg/dL) (70-110) mg/dL POC Glu Food Service Technician ID Plasma Lactic Acid Shane 1.4 (0.7-2.0) mmol/L Calcium 8.9 (8.4-10.2) mg/dL Magnesium 2.3 (1.6-2.3) mg/dL Total Bilirubin 0.9 (0.2-1.3) mg/dL AST 29 (17-59) U/L ALT 17 (4-49) U/L Alkaline Phosphatase 187 H (38-126) U/L Troponin I 0.035 H* (0.000-0.034) ng/mL NT-Pro-B Natriuret Pep 21719 pg/mL Total Protein 6.9 (6.3-8.2) g/dL Albumin 3.5 (3.5-5.0) g/dL Influenza Type A (PCR) (Not Detectd) Influenza Type B (PCR) (Not Detectd) RSV (PCR) (Not Detectd) SARS-CoV-2 (PCR) (Not Detectd) 08/21/23 Range/Units 23:35 WBC (3.8-10.6) k/uL RBC (4.30-5.90) m/uL Hgb (13.0-17.5) gm/dL Hct (39.0-53.0) % MCV (80.0-100.0) fL MCH (25.0-35.0) pg MCHC (31.0-37.0) g/dL RDW (11.5-15.5) % Plt Count (150-450) k/uL MPV Neutrophils % % Lymphocytes % % Monocytes % % Eosinophils % % Basophils % % Neutrophils # (1.3-7.7) k/uL Lymphocytes # (1.0-4.8) k/uL Monocytes # (0-1.0) k/uL Eosinophils # (0-0.7) k/uL Basophils # (0-0.2) k/uL Hypochromasia Anisocytosis PT (10.0-12.5) sec INR (<1.2) APTT (22.0-30.0) sec Sodium (137-145) mmol/L Potassium (3.5-5.1) mmol/L Chloride (98-107) mmol/L Carbon Dioxide (22-30) mmol/L Anion Gap mmol/L BUN (9-20) mg/dL Creatinine (0.66-1.25) mg/dL Est GFR (CKD-EPI)AfAm (>60 ml/min/1.73 sqM) Est GFR (CKD-EPI)NonAf (>60 ml/min/1.73 sqM) Glucose (74-99) mg/dL POC Glucose (mg/dL) (70-110) mg/dL POC Glu Food Service Technician ID Plasma Lactic Acid Shane (0.7-2.0) mmol/L Calcium (8.4-10.2) mg/dL Magnesium (1.6-2.3) mg/dL Total Bilirubin (0.2-1.3) mg/dL AST (17-59) U/L ALT (4-49) U/L Alkaline Phosphatase (38-126) U/L Troponin I (0.000-0.034) ng/mL NT-Pro-B Natriuret Pep pg/mL Total Protein (6.3-8.2) g/dL Albumin (3.5-5.0) g/dL Influenza Type A (PCR) Not Detected (Not Detectd) Influenza Type B (PCR) Not Detected (Not Detectd) RSV (PCR) Not Detected (Not Detectd) SARS-CoV-2 (PCR) Not Detected (Not Detectd) Disposition Clinical Impression: ESRD (end stage renal disease) on dialysis, Non compliance with medical treatment, Systolic CHF, acute on chronic, Respiratory failure Disposition: ADMITTED IP TO THIS HOSP Condition: Serious Is patient prescribed a controlled substance at d/c from ED?: No Time of Disposition: 01:39 Decision to Admit Reason: Admit from EC Decision Date: 08/22/23 Decision Time: 01:40
[2023-08-22] MEDS: IPRATROPIUM-ALBUTEROL 3 ML NEB INHALATION STA (02:14)
[2023-08-22] MEDS: FUROSEMIDE 10 MG/ML 10 ML VIAL IV STA (02:33)
[2023-08-22] MEDS: FUROSEMIDE 10 MG/ML 4 ML VIAL IV STA (02:34)
[2023-08-22] MEDS: HYDROcodone/APAP 5-325MG 1 EACH TAB PO STA (05:59)
[2023-08-22] MEDS: HYDROcodone/APAP 5-325MG 1 EACH TAB PO PRN (07:53)
--- NOTE | 2023-08-22 08:12 | US ---
EXAMINATION TYPE: US chest DATE OF EXAM: 08/22/2023 COMPARISON: XR CLINICAL INDICATION: Male, 53 years old with history of large right pleural effusion; Large right ple ural effusion TECHNIQUE: Targeted ultrasound of the posterior lower bilateral hemithoraces EXAM MEASUREMENTS: Right Pleural Effusion pocket size: 10.6 cm Right skin surface to fluid distance: 2.9 cm. Not marked due to lung tissue seen within view at 2.9 cm. Left Pleural Effusion pocket size: 0.8 cm Small fluid pocket size, not marked. Right side NOT marked for possible thoracentesis outside the dept. Left side NOT marked for possible thoracentesis outside the dept. Pulmonologists are able to review the images in the patient?s EMR. IMPRESSIONS: 1. Right chest wall soft tissue along the pleura with large pleural effusion. This was not marked fo r drainage outside the department. 2. Small fluid pocket left, not marked for thoracentesis.
[2023-08-22] MEDS: MIDODRINE 5 MG TAB PO SCH (09:15)
[2023-08-22] MEDS ORDERED: traZODone HCL 50 MG TAB PO PRN (09:38)
[2023-08-22] MEDS ORDERED: ALBUTEROL HFA INHALER INHALATION PRN (09:38)
[2023-08-22] MEDS: ALPRAZolam 0.25 MG TAB PO PRN (09:57)
--- NOTE | 2023-08-22 11:49 | P.NPCON ---
History of Present Illness - Reason for Consult end stage renal disease - History of Present Illness Patient is a 53-year-old male with history of end-stage renal disease, ischemic cardiomyopathy and COPD with multiple admissions for volume overload and noncompliance with dialysis. Patient is admitted to the hospital as he missed dialysis and he is complaining of shortness of breath. No history of fever or chills. No history of nausea vomiting or abdominal pain. Chest x-ray shows large right pleural effusion. Review of Systems As per HPI Past Medical History Past Medical History: Asthma, Coronary Artery Disease (CAD), Chest Pain / Angina, Heart Failure, COPD, Diabetes Mellitus, GERD/Reflux, Hyperlipidemia, Hypertension, Myocardial Infarction ([place]), Pneumonia, Sleep Apnea/CPAP/BIPAP, Supraventricular Tachycardia (SVT) Additional Past Medical History / Comment(s): Ischemic cardiomyopathy, chronic CHF, SVT, IDDM type II, KAMINI with CPAP occasionally used, chronic cervical/back pain, DJD, diabetic foot wounds x 4 months. Dialysis Last Myocardial Infarction Date:: 12/11/17 History of Any Multi-Drug Resistant Organisms: MRSA Date of last positivie culture/infection: 06/15/23 MDRO Source:: Right Foot Past Surgical History: Adenoidectomy, AICD, Back Surgery, Cholecystectomy, EPS, Heart Catheterization, Pacemaker, Tonsillectomy Additional Past Surgical History / Comment(s): 12/10/17 cardiac cath, previous cardiac cath, 09/02/14 AICD/pacer, EGD/colonoscopy, low back surgery with fusion. Past Anesthesia/Blood Transfusion Reactions: Motion Sickness Additional Past Anesthesia/Blood Transfusion Reaction / Comment(s): Pt states he received blood with back surgery without reaction. Type of Cardiac Device: Permanent Pacemaker, AICD Device Placement Date:: 09-02-14 Past Psychological History: ADD/ADHD, Anxiety Smoking Status: Current every day smoker Past Alcohol Use History: Occasional Past Drug Use History: Marijuana - Past Family History Father Additional Family Medical History / Comment(s): Pt has not kept in close contact with his father for many yrs. Father was an alcoholic and pt believes he has from cirrhosis of the liver. Mother History Unknown: Yes Additional Family Medical History / Comment(s): Pt is not in contact with his mother or his father who he has heard had . Medications and Allergies Home Medications Medication Instructions Recorded Confirmed Type Albuterol Inhaler [Ventolin Hfa 2 puff INHALATION RT-QID PRN 07/06/22 08/22/23 History Inhaler] SILVER sulfADIAZINE CREAM 1 applic TOPICAL SUWEFR 06/04/23 08/22/23 History [Silvadene Cream] Acetaminophen Tab [Tylenol] 650 mg PO Q6HR PRN tab 07/02/23 08/22/23 Rx DULoxetine HCL [Cymbalta] 30 mg PO DAILY cap 07/02/23 08/22/23 Rx Folic Acid 1 mg PO DAILY tab 07/02/23 08/22/23 Rx Ipratropium-Albuterol Nebulize 3 ml INHALATION RT-QID each 07/02/23 08/22/23 Rx [Duoneb 0.5 mg-3 mg/3 ml Soln] Lactulose [Cephulac] 20 gm PO DAILY PRN ml 07/02/23 08/22/23 Rx Thiamine [Vitamin B-1] 100 mg PO DAILY #30 tablet 07/02/23 08/22/23 Rx fluPHENAZine [Prolixin] 3 mg PO HS tab 07/02/23 08/22/23 Rx Aspirin 81 mg PO DAILY 07/04/23 08/22/23 History Famotidine [Pepcid] 20 mg PO DAILY 07/04/23 08/22/23 History Insulin Glargine,Hum.rec.anlog 28 units SQ HS 07/04/23 08/22/23 History [Toshola Bailey] Metoprolol Tartrate [Lopressor] 25 mg PO BID 07/04/23 08/22/23 History Midodrine HCl [ProAmatine] 10 mg PO TID@0730,1100,1600 07/04/23 08/22/23 History Multivitamins, Thera [Multivitamin 1 tab PO DAILY 07/04/23 08/22/23 History (formulary)] Torsemide [Soaanz] 40 mg PO SUMOWEFR@0700 07/04/23 08/22/23 History Torsemide [Soaanz] 40 mg PO TUTHSA@1000 07/04/23 08/22/23 History Ascorbic Acid [Vitamin C] 1,000 mg PO DAILY tab 07/09/23 08/22/23 Rx INSULIN ASPART (NovoLOG) [NovoLOG See Protocol SQ ACHS 07/20/23 08/22/23 History (formulary)] ALPRAZolam [Xanax] 0.5 mg PO Q8H PRN 08/22/23 08/22/23 History Amiodarone [Cordarone] 200 mg PO DAILY 08/22/23 08/22/23 History HYDROcodone/APAP 5-325MG [[place] 1 tab PO Q8HR 08/22/23 08/22/23 History 5-325] traZODone HCL [Desyrel] 50 mg PO HS PRN 08/22/23 08/22/23 History Allergies Allergy/AdvReac Type Severity Reaction Status Date / Time azithromycin Allergy Anaphylaxis Verified 08/22/23 08:29 gemfibrozil [From Lopid] Allergy Rash/Hives Verified 08/22/23 08:29 Physical Exam Vitals: Vital Signs Temp Pulse Resp BP Pulse Ox 08/22/23 07:55 75 18 94/64 90 L 08/22/23 06:00 73 15 97/65 100 08/22/23 05:00 75 12 95/62 100 08/22/23 04:00 75 10 L 98/64 98 08/22/23 03:00 73 16 98/66 100 08/22/23 02:30 73 16 100/67 100 08/22/23 02:24 76 08/22/23 02:14 74 08/22/23 02:00 75 24 102/70 95 08/22/23 01:00 75 23 90/72 100 08/22/23 00:04 73 22 92/61 99 08/22/23 00:00 74 20 102/69 99 08/21/23 23:08 79 24 103/73 98 08/21/23 23:02 99 F 80 16 100/67 98 Intake and Output 08/21/23 08/22/23 08/22/23 22:59 06:59 14:59 Other: Weight 111.13 kg Patient is awake, comfortable, no acute distress Examination of the heart S1 and S2 Examination of the lungs bilateral breath sounds are heard Abdomen is soft obese Examination of lower extremity shows significant edema 3-4+ bilaterally. Right AKA [employer] LE[employer]ER exam grossly intact Results - Lab Results Most recent lab results Calcium 8.9 mg/dL (8.4-10.2) 01/24/24 23:30 Magnesium 2.3 mg/dL (1.6-2.3) 08/21/23 23:30 08/21/23 23:30 08/21/23 23:30 Assessment and Plan Assessment: 1. End-stage renal disease on hemodialysis on a Saturday schedule 2. Severe volume overload 3. Large right pleural effusion 4. 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 5. CKD mineral bone disorder Plan: Hemodialysis today and repeat in a.m. UF 3 to 3.5 L as tolerated. Use midodrine to help with UF as blood pressure is low Possible thoracentesis. Check phosphorus Thank you for the consultation. We will continue to follow the patient with you during his hospitalization.
[2023-08-22] MEDS ORDERED: ONDANSETRON 4 MG/2 ML VIAL IVP PRN (14:04)
[2023-08-22] MEDS ORDERED: LACTULOSE 20 GM/30 ML CUP PO PRN (14:04)
[2023-08-22] MEDS ORDERED: CALCIUM CARBONATE 500 MG CHEWABLE PO PRN (14:04)
[2023-08-22] MEDS: FOLIC ACID 1 MG TAB PO SCH (14:06)
[2023-08-22] MEDS: ASCORBIC ACID 500 MG TAB PO SCH (14:06)
[2023-08-22] MEDS: METOPROLOL TARTRATE 25 MG TAB PO SCH (14:06)
[2023-08-22] MEDS: AMIODARONE 200 MG TAB PO SCH (14:06)
[2023-08-22] MEDS: MULTIVITAMINS, THERA 1 EACH TAB PO SCH (14:06)
[2023-08-22] MEDS: FAMOTIDINE 20 MG TAB PO SCH (14:06)
[2023-08-22] MEDS: DULoxetine HCL 30 MG CAPSULE.DR PO SCH (14:06)
[2023-08-22] MEDS ORDERED: DEXTROSE 50% SYRINGE 50 ML IVP PRN (14:07)
[2023-08-22] MEDS: ASPIRIN 81 MG PO SCH (14:07)
[2023-08-22] MEDS: HYDROcodone/APAP 5-325MG 1 EACH TAB PO SCH ×2 (14:09→21:34)
--- NOTE | 2023-08-22 14:16 | P.HPIM ---
History of Present Illness H&P Date: 08/22/23 Chief Complaint: Short of breath This is a 53-year-old patient, follows with Dr. Rodríguez. Chronic stable medical condition include CHF EF less than 20%, COPD, diabetes mellitus type 2, hypertension, hyperlipidemia, obstructive sleep apnea, anxiety, AICD, lower extremity venous insufficiency. Patient had lower extremity wounds for which she followed with Dr. Kaur from vascular and ID Dr. Abbasi. Multiple admissions. Patient finally agreed to amputation for the right foot wound that was not healing.. Finally on July 26 patient underwent right above-knee amputation by Dr. Kaur from vascular. Patient was discharged to a [facility] facility. Patient had been noncompliant with hemodialysis prior to that admission. Patient presented to our ER after being progressively increasing shortness of breath. He missed his dialysis yesterday. He became increasingly short of breath. Increasing edema. Some cough. Denies any fever and chills. Tired. N ephrology was called. Patient getting 3 L removed with dialysis today. Patient currently a resident of [facility]. Patient received midodrine today before started dialysis Review of systems: GEN.: Tired EYES: None HEENT: None NECK: None RESPIRATORY: Short of breath. CARDIOVASCULAR: No chest pain, edema present GASTROINTESTINAL: None GENITOURINARY: Does make urine MUSCULOSKELETAL: Joint pains LYMPHATICS: None HEMATOLOGICAL: None PSYCHIATRY: Tired NEUROLOGICAL: Some neuropathy Social history: Lives with his 20-year-old son. Disabled. 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 Smoking 2 packs a day for most of his life . Stop drinking heavy alcohol about 20 years ago. Has done marijuana. Physical examination: VITAL SIGNS: 99, 80, 16, 100/67, 98% on 3 days on presentation GENERAL: Reclining in bed, tired lethargic but arousable EYES: Pupils equal. Conjunctiva normal. HEENT: External appearance of nose and ears normal, oral cavity grossly normal. NECK: JVD raised; masses not palpable. HEART: First and second heart sounds are normal; significant edema LUNGS: Respiratory rate increased; diminished breath sounds ABDOMEN: Soft, nontender, liver spleen not palpable, no masses palpable. PSYCH: Lethargic but able to awaken answer questions and doses of s. NEUROLOGICAL: Cranial nerves grossly intact. No facial asymmetry DERMATOLOGICAL: Right above-knee amputation. The stump is gross stitches. Left lower extremity wound INVESTIGATIONS, reviewed in the clinical context: August 21, 2023: White count 22.8 hemoglobin 11 platelets were 89 sodium 132 potassium 5.4 BUN 83 creatinine 6.21 Troponin I 0.035. proBNP 25590 Influenza type A, type B, RSV, COVID-19: Not detected EKG tracing personally reviewed by me-normal sinus rhythm. Chest x-ray film personally reviewed by me-large right pleural effusion Chest ultrasound: Large right pleural effusion Assessment and plan: -Acute on chronic congestive heart failure nonischemic cardiomyopathy systolic dysfunction EF less than 20%: Worsening from missed hemodialysis.: Urgent hemodialysis today.-3 L to be removed AICD. Fluid restriction 1500 mL. Consultations cardiology and nephrology -Acute uremic and hypoxic encephalopathy -Acute hypoxic respiratory failure from fluid overload/CHF. 3 L nasal cannula -Right above-knee amputation by Dr. Yared Lugo on June [address] Kaur -Acute COPD exacerbation in a previous smoker Ventolin. DuoNeb-4 times daily. - AICD -Diabetes mellitus type 2 chronically on insulin, uncontrolled with [id number] Levemir 18 units subcu Diabetic diet. Accu-Cheks and sliding scale -Iron deficiency anemia aranesp -Hyperlipidemia Lipitor -End-stage kidney disease on hemodialysis Right IJ dialysis catheter -Hyponatremia-mild Fluid restriction -Chronic low back pain. Patient's had pain on and off for about 10 years. Has had prior surgery. Does not remember who did the surgery. When necessary pain medication -Hypotension. Midodrine -Obstructive sleep apnea sometimes uses CPAP machine -Diabetic peripheral neuropathy -Anxiety, depression Trazodone, Cymbalta -DJD Tylenol when necessary -AICD -Lower extremity chronic venous insufficiency, with left lower extremity wounds Dr. Kaur consulted -Full code Past Medical History Past Medical History: Asthma, Coronary Artery Disease (CAD), Chest Pain / Angina, Heart Failure, COPD, Diabetes Mellitus, GERD/Reflux, Hyperlipidemia, Hypertension, Myocardial Infarction ([place]), Pneumonia, Sleep Apnea/CPAP/BIPAP, Supraventricular Tachycardia (SVT) Additional Past Medical History / Comment(s): Ischemic cardiomyopathy, chronic CHF, SVT, IDDM type II, KAMINI with CPAP occasionally used, chronic cervical/back pain, DJD, diabetic foot wounds x 4 months. Dialysis Last Myocardial Infarction Date:: 12/11/17 History of Any Multi-Drug Resistant Organisms: MRSA Date of last positivie culture/infection: 06/15/23 MDRO Source:: Right Foot Past Surgical History: Adenoidectomy, AICD, Back Surgery, Cholecystectomy, EPS, Heart Catheterization, Pacemaker, Tonsillectomy Additional Past Surgical History / Comment(s): 12/10/17 cardiac cath, previous cardiac cath, 09/02/14 AICD/pacer, EGD/colonoscopy, low back surgery with fusion. Past Anesthesia/Blood Transfusion Reactions: Motion Sickness Additional Past Anesthesia/Blood Transfusion Reaction / Comment(s): Pt states he received blood with back surgery without reaction. Type of Cardiac Device: Permanent Pacemaker, AICD Device Placement Date:: 09-02-14 Past Psychological History: ADD/ADHD, Anxiety Smoking Status: Current every day smoker Past Alcohol Use History: Occasional Past Drug Use History: Marijuana - Past Family History Father Additional Family Medical History / Comment(s): Pt has not kept in close contact with his father for many yrs. Father was an alcoholic and pt believes he has from cirrhosis of the liver. Mother History Unknown: Yes Additional Family Medical History / Comment(s): Pt is not in contact with his mother or his father who he has heard had . Medications and Allergies Home Medications Medication Instructions Recorded Confirmed Type Albuterol Inhaler [Ventolin Hfa 2 puff INHALATION RT-QID PRN 07/06/22 08/22/23 History Inhaler] SILVER sulfADIAZINE CREAM 1 applic TOPICAL SUWEFR 06/04/23 08/22/23 History [Silvadene Cream] Acetaminophen Tab [Tylenol] 650 mg PO Q6HR PRN tab 07/02/23 08/22/23 Rx DULoxetine HCL [Cymbalta] 30 mg PO DAILY cap 07/02/23 08/22/23 Rx Folic Acid 1 mg PO DAILY tab 07/02/23 08/22/23 Rx Ipratropium-Albuterol Nebulize 3 ml INHALATION RT-QID each 07/02/23 08/22/23 Rx [Duoneb 0.5 mg-3 mg/3 ml Soln] Lactulose [Cephulac] 20 gm PO DAILY PRN ml 07/02/23 08/22/23 Rx Thiamine [Vitamin B-1] 100 mg PO DAILY #30 tablet 07/02/23 08/22/23 Rx fluPHENAZine [Prolixin] 3 mg PO HS tab 07/02/23 08/22/23 Rx Aspirin 81 mg PO DAILY 07/04/23 08/22/23 History Famotidine [Pepcid] 20 mg PO DAILY 07/04/23 08/22/23 History Insulin Glargine,Hum.rec.anlog 28 units SQ HS 07/04/23 08/22/23 History [Toujeo Solostar] Metoprolol Tartrate [Lopressor] 25 mg PO BID 07/04/23 08/22/23 History Midodrine HCl [ProAmatine] 10 mg PO TID@0730,1100,1600 07/04/23 08/22/23 History Multivitamins, Thera [Multivitamin 1 tab PO DAILY 07/04/23 08/22/23 History (formulary)] Torsemide [Soaanz] 40 mg PO SUMOWEFR@0700 07/04/23 08/22/23 History Torsemide [Soaanz] 40 mg PO TUTHSA@1000 07/04/23 08/22/23 History Ascorbic Acid [Vitamin C] 1,000 mg PO DAILY tab 07/09/23 08/22/23 Rx INSULIN ASPART (NovoLOG) [NovoLOG See Protocol SQ ACHS 07/20/23 08/22/23 History (formulary)] ALPRAZolam [Xanax] 0.5 mg PO Q8H PRN 08/22/23 08/22/23 History Amiodarone [Cordarone] 200 mg PO DAILY 08/22/23 08/22/23 History HYDROcodone/APAP 5-325MG [[place] 1 tab PO Q8HR 08/22/23 08/22/23 History 5-325] traZODone HCL [Desyrel] 50 mg PO HS PRN 08/22/23 08/22/23 History Allergies Allergy/AdvReac Type Severity Reaction Status Date / Time azithromycin Allergy Anaphylaxis Verified 08/22/23 08:29 gemfibrozil [From Lopid] Allergy Rash/Hives Verified 08/22/23 08:29 Physical Exam Vitals: Vital Signs Temp Pulse Resp BP Pulse Ox 08/22/23 07:55 75 18 94/64 90 L 08/22/23 06:00 73 15 97/65 100 08/22/23 05:00 75 12 95/62 100 08/22/23 04:00 75 10 L 98/64 98 08/22/23 03:00 73 16 98/66 100 08/22/23 02:30 73 16 100/67 100 08/22/23 02:24 76 08/22/23 02:14 74 08/22/23 02:00 75 24 102/70 95 08/22/23 01:00 75 23 90/72 100 08/22/23 00:04 73 22 92/61 99 08/22/23 00:00 74 20 102/69 99 08/21/23 23:08 79 24 103/73 98 08/21/23 23:02 99 F 80 16 98 Intake and Output 08/21/23 08/22/23 08/22/23 22:59 06:59 14:59 Other: Weight 111.13 kg Results CBC & Chem 7: 08/21/23 23:30 08/21/23 23:30 Labs: Abnormal Lab Results - Last 24 Hours (Table) 08/21/23 08/21/23 08/21/23 Range/Units 23:30 23:30 23:30 WBC 22.8 H (3.8-10.6) k/uL RBC 3.90 L (4.30-5.90) m/uL Hgb 11.0 L (13.0-17.5) gm/dL Hct 35.9 L (39.0-53.0) % MCHC 30.7 L (31.0-37.0) g/dL RDW 17.0 H (11.5-15.5) % Neutrophils # 19.6 H (1.3-7.7) k/uL Lymphocytes # 0.7 L (1.0-4.8) k/uL Monocytes # 2.0 H (0-1.0) k/uL PT 14.6 H (10.0-12.5) sec INR 1.4 H (<1.2) Sodium 132 L (137-145) mmol/L Potassium 5.4 H (3.5-5.1) mmol/L Chloride 94 L (98-107) mmol/L BUN 83 H (9-20) mg/dL Creatinine 6.21 H (0.66-1.25) mg/dL Alkaline Phosphatase 187 H (38-126) U/L Troponin I (0.000-0.034) ng/mL 08/21/23 Range/Units 23:30 WBC (3.8-10.6) k/uL RBC (4.30-5.90) m/uL Hgb (13.0-17.5) gm/dL Hct (39.0-53.0) % MCHC (31.0-37.0) g/dL RDW (11.5-15.5) % Neutrophils # (1.3-7.7) k/uL Lymphocytes # (1.0-4.8) k/uL Monocytes # (0-1.0) k/uL PT (10.0-12.5) sec INR (<1.2) Sodium (137-145) mmol/L Potassium (3.5-5.1) mmol/L Chloride (98-107) mmol/L BUN (9-20) mg/dL Creatinine (0.66-1.25) mg/dL Alkaline Phosphatase (38-126) U/L Troponin I 0.035 H* (0.000-0.034) ng/mL
[2023-08-22 14:19] LABS: Glucose,Whole Blood 188 mg/dL (70-110)
[2023-08-22] MEDS: INSULIN ASPART (NovoLOG) 100 UNIT/ML VIAL SQ SCH (14:25)
[2023-08-22] MEDS: IPRATROPIUM-ALBUTEROL 3 ML NEB INHALATION SCH (14:40)
--- NOTE | 2023-08-22 14:48 | P.CRDCN ---
History of Present Illness History of present illness: HISTORY OF PRESENT ILLNESS: This is a 53-year-old male with a past medical history significant for nonischemic cardiomyopathy, AICD implantation, nonsustained ventricular tachycardia, hyperlipidemia, COPD, nicotine dependence, chronic kidney disease on hemodialysis, diabetes, and recent right AKA secondary to diabetic ulcer, and chronic hypotension. Patient follows in the office with Dr. Abbasi. We have been asked to see the patient in consultation for congestive heart failure. Patient examined at the bedside in the emergency room. Patient was recently hospitalized in June 2023 and underwent right BKA. He was [facility] to [facility] [place]. Patient states he missed his hemodialysis session yesterday because he had an appointment that he could not miss so he decided to skip hemodialysis. The patient states he began to feel short of breath yesterday evening and was brought to the hospital for further evaluation. The patient underwent hemodialysis this morning. He states his breathing has improved although he continues to be short of breath. He currently denies any chest pain or pressure. DIAGNOSTICS: - EKG reveals sinus mechanism with no signs of acute ischemia. Low voltage QRS. - Chest xray large right pleural effusion - Ultrasound of the chest reveals right chest wall soft tissue along the pleura with large pleural effusion. Small fluid pocket on the left. - Laboratory data: WBC 22.8. Hemoglobin 11.0. Platelet count 189. Sodium 132. Potassium 5.4. BUN 83. Creatinine 6.21. Troponin 0.035. proBNP 72,100. - Current home cardiac medications include amiodarone 200 mg daily, aspirin 81 mg daily, torsemide 40 mg daily, metoprolol tartrate 25 mg twice a day, midodrine 10 mg 3 times a day - Most recent echocardiogram obtained in June 2022 revealed ejection fraction less than 20%, severe pulmonary hypertension, moderate to severe MR, moderate TR - Cardiac catheterization history: February 2018 revealing minimal CAD REVIEW OF SYSTEMS: At the time of my exam: CONSTITUTIONAL: Denies fever or chills. HEENT: Denies blurred vision, vision changes, or eye pain. Denies hemoptysis CARDIOVASCULAR: Denies chest pain. Denies orthopnea. Denies PND. Denies palpitations RESPIRATORY: Reports shortness of breath. GASTROINTESTINAL: Denies abdominal pain. Denies nausea or vomiting. HEMATOLOGIC: Denies bleeding disorders. GENITOURINARY: Denies any blood in urine. SKIN: Denies pruitis. Denies rash. PHYSICAL EXAM: VITAL SIGNS: Reviewed. GENERAL: Well-developed in no acute distress. HEENT: Head is normocephalic. Pupils are equal, round. Sclerae anicteric. Mucous membranes of the mouth are moist. Neck supple. + JVD. No thyromegaly LUNGS: Respirations even and unlabored. Lungs with significantly decreased breath sounds on the right and crackles to the left base HEART: Regular rate and rhythm. S1 and S2 heard. Systolic murmur noted. ABDOMEN: Soft. Nondistended. Nontender. EXTREMITIES: Normal range of motion. No clubbing or cyanosis. Right AKA. Left lower extremity with 3+ edema and gauze dressing noted to calf. NEUROLOGIC: Awake and alert. Oriented x 3. ASSESSMENT: Shortness of breath Volume overload, secondary to missed hemodialysis session yesterday Acute on chronic heart failure with reduced EF, 20% Large right-sided pleural effusion End-stage renal disease on hemodialysis Nonischemic cardiomyopathy History of AICD implantation History of nonsustained ventricular tachycardia, maintained on amiodarone outpatient Recent right AKA secondary to nonhealing diabetic ulcer, June 2023 Hyperlipidemia COPD Nicotine dependence Diabetes Valvular heart disease including moderate to severe MR and moderate TR Severe pulmonary hypertension Chronic hypotension, maintained on midodrine outpatient, unable to tolerate BALBINA/ARB History of medication noncompliance PLAN: Obtain 2D echo to assess cardiac structure and function and assess valvular heart disease Pulmonary has been consulted for further evaluation of right-sided pleural effusion Nephrology is following. Hemodialysis and diuretics per nephrology Resume home cardiac medications Further recommendations pending patient course Nurse practitioner note has been reviewed by physician. Signing provider agrees with the documented findings, assessment, and plan of care documented by [employer] as a scribe. Past Medical History Past Medical History: Asthma, Coronary Artery Disease (CAD), Chest Pain / Angina, Heart Failure, COPD, Diabetes Mellitus, GERD/Reflux, Hyperlipidemia, Hypertension, Myocardial Infarction ([place]), Pneumonia, Sleep Apnea/CPAP/BIPAP, Supraventricular Tachycardia (SVT) Additional Past Medical History / Comment(s): Ischemic cardiomyopathy, chronic CHF, SVT, IDDM type II, KAMINI with CPAP occasionally used, chronic cervical/back pain, DJD, diabetic foot wounds x 4 months. Dialysis Last Myocardial Infarction Date:: 12/11/17 History of Any Multi-Drug Resistant Organisms: MRSA Date of last positivie culture/infection: 06/15/23 MDRO Source:: Right Foot Past Surgical History: Adenoidectomy, AICD, Back Surgery, Cholecystectomy, EPS, Heart Catheterization, Pacemaker, Tonsillectomy Additional Past Surgical History / Comment(s): 12/10/17 cardiac cath, previous cardiac cath, 09/02/14 AICD/pacer, EGD/colonoscopy, low back surgery with fusion. Past Anesthesia/Blood Transfusion Reactions: Motion Sickness Additional Past Anesthesia/Blood Transfusion Reaction / Comment(s): Pt states he received blood with back surgery without reaction. Type of Cardiac Device: Permanent Pacemaker, AICD Device Placement Date:: 09-02-14 Past Psychological History: ADD/ADHD, Anxiety Smoking Status: Current every day smoker Past Alcohol Use History: Occasional Past Drug Use History: Marijuana - Past Family History Father Additional Family Medical History / Comment(s): Pt has not kept in close contact with his father for many yrs. Father was an alcoholic and pt believes he has from cirrhosis of the liver. Mother History Unknown: Yes Additional Family Medical History / Comment(s): Pt is not in contact with his mother or his father who he has heard had . Medications and Allergies Home Medications Medication Instructions Recorded Confirmed Type Albuterol Inhaler [Ventolin Hfa 2 puff INHALATION RT-QID PRN 07/06/22 08/22/23 History Inhaler] SILVER sulfADIAZINE CREAM 1 applic TOPICAL SUWEFR 06/04/23 08/22/23 History [Silvadene Cream] Acetaminophen Tab [Tylenol] 650 mg PO Q6HR PRN tab 07/02/23 08/22/23 Rx DULoxetine HCL [Cymbalta] 30 mg PO DAILY cap 07/02/23 08/22/23 Rx Folic Acid 1 mg PO DAILY tab 07/02/23 08/22/23 Rx Ipratropium-Albuterol Nebulize 3 ml INHALATION RT-QID each 07/02/23 08/22/23 Rx [Duoneb 0.5 mg-3 mg/3 ml Soln] Lactulose [Cephulac] 20 gm PO DAILY PRN ml 07/02/23 08/22/23 Rx Thiamine [Vitamin B-1] 100 mg PO DAILY #30 tablet 07/02/23 08/22/23 Rx fluPHENAZine [Prolixin] 3 mg PO HS tab 07/02/23 08/22/23 Rx Aspirin 81 mg PO DAILY 07/04/23 08/22/23 History Famotidine [Pepcid] 20 mg PO DAILY 07/04/23 08/22/23 History Insulin Glargine,Hum.rec.anlog 28 units SQ HS 07/04/23 08/22/23 History [Toujeo Solostar] Metoprolol Tartrate [Lopressor] 25 mg PO BID 07/04/23 08/22/23 History Midodrine HCl [ProAmatine] 10 mg PO TID@0730,1100,1600 07/04/23 08/22/23 History Multivitamins, Thera [Multivitamin 1 tab PO DAILY 07/04/23 08/22/23 History (formulary)] Torsemide [Soaanz] 40 mg PO SUMOWEFR@0700 07/04/23 08/22/23 History Torsemide [Soaanz] 40 mg PO TUTHSA@1000 07/04/23 08/22/23 History Ascorbic Acid [Vitamin C] 1,000 mg PO DAILY tab 07/09/23 08/22/23 Rx INSULIN ASPART (NovoLOG) [NovoLOG See Protocol SQ ACHS 07/20/23 08/22/23 History (formulary)] ALPRAZolam [Xanax] 0.5 mg PO Q8H PRN 08/22/23 08/22/23 History Amiodarone [Cordarone] 200 mg PO DAILY 08/22/23 08/22/23 History HYDROcodone/APAP 5-325MG [[place] 1 tab PO Q8HR 08/22/23 08/22/23 History 5-325] traZODone HCL [Desyrel] 50 mg PO HS PRN 08/22/23 08/22/23 History Allergies Allergy/AdvReac Type Severity Reaction Status Date / Time azithromycin Allergy Anaphylaxis Verified 08/22/23 08:29 gemfibrozil [From Lopid] Allergy Rash/Hives Verified 08/22/23 08:29 Physical Exam Vitals: Vital Signs Temp Pulse Resp BP Pulse Ox 08/22/23 07:55 75 18 94/64 90 L 08/22/23 06:00 73 15 97/65 100 08/22/23 05:00 75 12 95/62 100 08/22/23 04:00 75 10 L 98/64 98 08/22/23 03:00 73 16 98/66 100 08/22/23 02:30 73 16 100/67 100 08/22/23 02:24 76 08/22/23 02:14 74 08/22/23 02:00 75 24 102/70 95 08/22/23 01:00 75 23 90/72 100 08/22/23 00:04 73 22 92/61 99 08/22/23 00:00 74 20 102/69 99 08/21/23 23:08 79 24 103/73 98 08/21/23 23:02 99 F 80 16 100/67 98 Intake and Output 08/21/23 08/22/23 08/22/23 22:59 06:59 14:59 Other: Weight 111.13 kg Results 08/21/23 23:30 08/21/23 23:30 Cardiac Enzymes 08/21/23 08/21/23 Range/Units 23:30 23:30 AST 29 (17-59) U/L Troponin I 0.035 H* (0.000-0.034) ng/mL Coagulation 08/21/23 Range/Units 23:30 PT 14.6 H (10.0-12.5) sec APTT 27.4 (22.0-30.0) sec CBC 08/21/23 Range/Units 23:30 WBC 22.8 H (3.8-10.6) k/uL RBC 3.90 L (4.30-5.90) m/uL Hgb 11.0 L (13.0-17.5) gm/dL Hct 35.9 L (39.0-53.0) % Plt Count 189 (150-450) k/uL Comprehensive Metabolic Panel 08/21/23 Range/Units 23:30 Sodium 132 L (137-145) mmol/L Potassium 5.4 H (3.5-5.1) mmol/L Chloride 94 L (98-107) mmol/L Carbon Dioxide 23 (22-30) mmol/L BUN 83 H (9-20) mg/dL Creatinine 6.21 H (0.66-1.25) mg/dL Glucose 94 (74-99) mg/dL Calcium 8.9 (8.4-10.2) mg/dL AST 29 (17-59) U/L ALT 17 (4-49) U/L Alkaline Phosphatase 187 H (38-126) U/L Total Protein 6.9 (6.3-8.2) g/dL Albumin 3.5 (3.5-5.0) g/dL Current Medications Generic Name Dose Route Start Last Admin Trade Name Freq PRN Reason Stop Dose Admin Acetaminophen 650 mg 08/22/23 09:38 Acetaminophen Tab 325 Mg Tab PO Q6HR PRN Mild Pain or Fever > 100.5 Hydrocodone Bitart/Acetaminophen 1 each 08/22/23 22:00 Hydrocodone/Apap 5-325mg 1 Each Tab PO Q8HR LAN Albuterol Sulfate 2 puff 08/22/23 09:38 Albuterol Hfa Inhaler INHALATION RT-QID PRN Shortness Of Breath Albuterol/Ipratropium 3 ml 08/22/23 01:42 Ipratropium-Albuterol 3 Ml Neb INHALATION RT-Q2H PRN Shortness Of Breath Or Wheezing Albuterol/Ipratropium 3 ml 08/22/23 14:06 Ipratropium-Albuterol 3 Ml Neb INHALATION RT-QID LAN Alprazolam 0.5 mg 08/22/23 09:38 08/22/23 09:57 Alprazolam 0.25 Mg Tab PO 0.5 mg Q8H PRN Administration Anxiety Amiodarone HCl 200 mg 08/22/23 09:00 08/22/23 14:06 Amiodarone 200 Mg Tab PO 200 mg DAILY LAN Administration Ascorbic Acid 1,000 mg 08/22/23 09:45 08/22/23 14:06 Ascorbic Acid 500 Mg Tab PO 1,000 mg DAILY LAN Administration Aspirin 81 mg 08/22/23 09:45 08/22/23 14:07 Aspirin 81 Mg PO Not Given DAILY LAN Calcium Carbonate/Glycine 1,000 mg 08/22/23 14:04 Calcium Carbonate 500 Mg Chewable PO Q4HR PRN Dyspepsia Dextrose/Water 25 ml 08/22/23 14:07 Dextrose 50% Syringe 50 Ml IVP PER PROTOCOL PRN Hypoglycemia Protocol Dextrose/Water 50 ml 08/22/23 14:07 Dextrose 50% Syringe 50 Ml IVP PER PROTOCOL PRN Hypoglycemia Protocol Duloxetine HCl 30 mg 08/22/23 09:45 08/22/23 14:06 Duloxetine Hcl 30 Mg Capsule.Dr PO 30 mg DAILY LAN Administration Famotidine 20 mg 08/22/23 09:45 08/22/23 14:06 Famotidine 20 Mg Tab PO 20 mg DAILY LAN Administration Fluphenazine HCl 3 mg 08/22/23 21:00 Fluphenazine 1 Mg Tab PO HS LAN Folic Acid 1 mg 08/22/23 10:00 08/22/23 14:06 Folic Acid 1 Mg Tab PO 1 mg DAILY LAN Administration Insulin Aspart 0 unit 08/22/23 12:30 08/22/23 14:25 Insulin Aspart (Novolog) 100 Unit/Ml Vial SQ 2 unit ACHS [facility] Administration Protocol Insulin Detemir 18 unit 08/22/23 21:00 Insulin Detemir (Levemir) 100 Unit/Ml Syr SQ HS [facility] Lactulose 20 gm 08/22/23 14:04 Lactulose 20 Gm/30 Ml Cup PO DAILY PRN Constipation Melatonin 3 mg 08/22/23 14:04 Melatonin 3 Mg Tablet PO HS PRN Insomnia Metoprolol Tartrate 25 mg 08/22/23 10:00 08/22/23 14:06 Metoprolol Tartrate 25 Mg Tab PO 25 mg BID [facility] Administration Midodrine 10 mg 08/22/23 09:15 08/22/23 14:05 Midodrine 5 Mg Tab PO 10 mg AC-TID [facility] Administration Multivitamins 1 each 08/22/23 09:45 08/22/23 14:06 Multivitamins, Thera 1 Each Tab PO 1 each DAILY LAN Administration Naloxone HCl 0.2 mg 08/22/23 01:40 Naloxone 0.4 Mg/Ml 1 Ml Vial IV Q2M PRN Opioid Reversal Ondansetron HCl 4 mg 08/22/23 14:04 Ondansetron 4 Mg/2 Ml Vial IVP Q8HR PRN Nausea And Vomiting Trazodone HCl 50 mg 08/22/23 09:38 Trazodone Hcl 50 Mg Tab PO HS PRN Agitation Intake and Output 08/21/23 08/22/23 08/22/23 22:59 06:59 14:59 Other: Weight 111.13 kg 08/21/23 23:30 08/21/23 23:30
--- NOTE | 2023-08-22 16:26 | P.CNPUL ---
History of Present Illness Consult date: 08/22/23 Requesting physician: Buck Johnson Reason for consult: dyspnea, hypoxemia, pleural effusion Chief complaint: Shortness of breath History of present illness: This is a pleasant 53-year-old male patient with a known history of asthma, neck and ongoing tobacco dependence, marijuana use, coronary artery disease, congestive heart failure, chronic obstructive pulmonary disease, diabetes mellitus, hyperlipidemia, hypertension, ischemic cardiomyopathy with previous AICD placement, nonhealing ulceration of the right heel with subsequent [id number] amputation on July 26, 2023, chronic kidney disease receiving hemodialysis Saturday, diabetes mellitus, obstructive sleep ap obed with CPAP use. He missed his dialysis on Saturday due to having an important meeting to go to. He presented here late last night with worsening shortness of breath and dyspnea on exertion. He also had increased lower extremity edema. Chest x-ray revealed a large right pleural effusion. White count platelets 189. INR 1.4. Sodium 132. Potassium 5.4. Bicarb 23. BUN 83. Creatinine 6.21. Glucose 188. Pro BNP level 72,100. Troponin 0.035. Viral screen negative. Ultrasound of the right chest revealed a 10.6 cm pocket however there was lung tissue seen within the fluid. He is seen today in consultation in the emergency department. He is currently sitting up on the stretcher. Awake and alert in no acute distress. Only maintaining O2 saturation in the 90s on 3 L/min per nasal cannula. Has been afebrile. Hemodynamically stable Review of Systems REVIEW OF SYSTEMS: CONSTITUTIONAL: Denies any recent significant weight loss or weight gain. EYES: Denies change in vision. EARS, NOSE, MOUTH, THROAT: Denies headaches, denies sore throat. CARDIOVASCULAR: Denies chest pain, palpitations or syncopal episodes. RESPIRATORY: Positive for shortness of breath, cough, congestion no hemoptysis. GASTROINTESTINAL: Denies change in appetite, denies abdominal pain GENITOURINARY: Denies hematuria, denies infections. MUSKULOSKELETAL: Denies pain, denies swelling. INTEGUMENTARY: Denies rash, denies eczema. NEUROLOGICAL: Denies recent memory loss, no recent seizure activity. PSYCHIATRIC: Denies anxiety, denies depression. HEMATOLOGIC/LYMPHATIC: Denies anemia, denies enlarged lymph nodes. Past Medical History Past Medical History: Asthma, Coronary Artery Disease (CAD), Chest Pain / Angina, Heart Failure, COPD, Diabetes Mellitus, GERD/Reflux, Hyperlipidemia, Hypertension, Myocardial Infarction (MD), Pneumonia, Sleep Apnea/CPAP/BIPAP, Supraventricular Tachycardia (SVT) Additional Past Medical History / Comment(s): Ischemic cardiomyopathy, chronic CHF, SVT, IDDM type II, KAMINI with CPAP occasionally used, chronic cervical/back pain, DJD, diabetic foot wounds x 4 months. Dialysis Last Myocardial Infarction Date:: 12/11/17 History of Any Multi-Drug Resistant Organisms: MRSA Date of last positivie culture/infection: 06/15/23 MDRO Source:: Right Foot Past Surgical History: Adenoidectomy, AICD, Back Surgery, Cholecystectomy, EPS, Heart Catheterization, Pacemaker, Tonsillectomy Additional Past Surgical History / Comment(s): 12/10/17 cardiac cath, previous cardiac cath, 09/02/14 AICD/pacer, EGD/colonoscopy, low back surgery with fusion. Past Anesthesia/Blood Transfusion Reactions: Motion Sickness Additional Past Anesthesia/Blood Transfusion Reaction / Comment(s): Pt states he received blood with back surgery without reaction. Type of Cardiac Device: Permanent Pacemaker, AICD Device Placement Date:: 09-02-14 Past Psychological History: ADD/ADHD, Anxiety Smoking Status: Current every day smoker Past Alcohol Use History: Occasional Past Drug Use History: Marijuana - Past Family History Father Additional Family Medical History / Comment(s): Pt has not kept in close contact with his father for many yrs. Father was an alcoholic and pt believes he has from cirrhosis of the liver. Mother History Unknown: Yes Additional Family Medical History / Comment(s): Pt is not in contact with his mother or his father who he has heard had . Medications and Allergies Home Medications Medication Instructions Recorded Confirmed Type Albuterol Inhaler [Ventolin Hfa 2 puff INHALATION RT-QID PRN 07/06/22 08/22/23 History Inhaler] SILVER sulfADIAZINE CREAM 1 applic TOPICAL SUWEFR 06/04/23 08/22/23 History [Silvadene Cream] Acetaminophen Tab [Tylenol] 650 mg PO Q6HR PRN tab 07/02/23 08/22/23 Rx DULoxetine HCL [Cymbalta] 30 mg PO DAILY cap 07/02/23 08/22/23 Rx Folic Acid 1 mg PO DAILY tab 07/02/23 08/22/23 Rx Ipratropium-Albuterol Nebulize 3 ml INHALATION RT-QID each 07/02/23 08/22/23 Rx [Duoneb 0.5 mg-3 mg/3 ml Soln] Lactulose [Cephulac] 20 gm PO DAILY PRN ml 07/02/23 08/22/23 Rx Thiamine [Vitamin B-1] 100 mg PO DAILY #30 tablet 07/02/23 08/22/23 Rx fluPHENAZine [Prolixin] 3 mg PO HS tab 07/02/23 08/22/23 Rx Aspirin 81 mg PO DAILY 07/04/23 08/22/23 History Famotidine [Pepcid] 20 mg PO DAILY 07/04/23 08/22/23 History Insulin Glargine,Hum.rec.anlog 28 units SQ HS 07/04/23 08/22/23 History [Toujeo Solostar] Metoprolol Tartrate [Lopressor] 25 mg PO BID 07/04/23 08/22/23 History Midodrine HCl [ProAmatine] 10 mg PO TID@0730,1100,1600 07/04/23 08/22/23 History Multivitamins, Thera [Multivitamin 1 tab PO DAILY 07/04/23 08/22/23 History (formulary)] Torsemide [Soaanz] 40 mg PO SUMOWEFR@0700 07/04/23 08/22/23 History Torsemide [Soaanz] 40 mg PO TUTHSA@1000 07/04/23 08/22/23 History Ascorbic Acid [Vitamin C] 1,000 mg PO DAILY tab 07/09/23 08/22/23 Rx INSULIN ASPART (NovoLOG) [NovoLOG See Protocol SQ ACHS 07/20/23 08/22/23 History (formulary)] ALPRAZolam [Xanax] 0.5 mg PO Q8H PRN 08/22/23 08/22/23 History Amiodarone [Cordarone] 200 mg PO DAILY 08/22/23 08/22/23 History HYDROcodone/APAP 5-325MG [[place] 1 tab PO Q8HR 08/22/23 08/22/23 History 5-325] traZODone HCL [Desyrel] 50 mg PO HS PRN 08/22/23 08/22/23 History Allergies Allergy/AdvReac Type Severity Reaction Status Date / Time azithromycin Allergy Anaphylaxis Verified 08/22/23 08:29 gemfibrozil [From Lopid] Allergy Rash/Hives Verified 08/22/23 08:29 Physical Exam Vitals: Vital Signs Temp Pulse Pulse Resp BP BP Pulse Ox 08/22/23 14:50 77 08/22/23 14:42 79 08/22/23 14:00 97.7 F 75 20 103/73 08/22/23 07:55 75 18 94/64 90 L 08/22/23 06:00 73 15 97/65 100 08/22/23 05:00 75 12 95/62 100 08/22/23 04:00 75 10 L 98/64 98 08/22/23 03:00 73 16 98/66 100 08/22/23 02:30 73 16 100/67 100 08/22/23 02:24 76 08/22/23 02:14 74 08/22/23 02:00 75 24 102/70 95 08/22/23 01:00 75 23 90/72 100 08/22/23 00:04 73 22 92/61 99 08/22/23 00:00 74 20 102/69 99 08/21/23 23:08 79 24 103/73 98 08/21/23 23:02 99 F 80 16 100/67 98 Intake and Output 08/22/23 08/22/23 08/22/23 06:59 14:59 22:59 Intake Total 400 Output Total 3400 Balance -3000 Intake: Hemodialysis 400 Output: Hemodialysis 3400 Other: Weight 111.13 kg GENERAL EXAM: Alert, 53-year-old male patient, on 3 L nasal cannula, fairly comfortable in no apparent distress. HEAD: Normocephalic. EYES: Normal reaction of pupils, equal size. NOSE: Clear with pink turbinates. THROAT: No erythema or exudates. NECK: No masses, no JVD. CHEST: No chest wall deformity. LUNGS: Equal air entry with diminished breath sounds in the right lung base. CVS: S1 and S2 normal with no audible murmur, regular rhythm. ABDOMEN: No hepatosplenomegaly, normal bowel sounds, no guarding or rigidity. SPINE: No scoliosis or deformity SKIN: No rashes CENTRAL NERVOUS SYSTEM: No focal deficits, tone is normal in all 4 extremities. EXTREMITIES: Recent right worqz-toa-[id number] amputation. There is 1-2+ peripheral edema. No clubbing, no cyanosis. Peripheral pulses are intact. Results - Laboratory Findings CBC and BMP: 08/21/23 23:30 08/21/23 23:30 PT/INR, D-dimer PT 14.6 sec (10.0-12.5) H 08/21/23 23:30 INR 1.4 (<1.2) H 08/21/23 23:30 Abnormal lab findings: Abnormal Labs 08/21/23 08/21/23 08/21/23 23:30 23:30 23:30 WBC 22.8 H RBC 3.90 L Hgb 11.0 L Hct 35.9 L MCHC 30.7 L RDW 17.0 H Neutrophils # 19.6 H Lymphocytes # 0.7 L Monocytes # 2.0 H PT 14.6 H INR 1.4 H Sodium 132 L Potassium 5.4 H Chloride 94 L BUN 83 H Creatinine 6.21 H POC Glucose (mg/dL) Alkaline Phosphatase 187 H Troponin I 08/21/23 08/22/23 23:30 14:16 WBC RBC Hgb Hct MCHC RDW Neutrophils # Lymphocytes # Monocytes # PT INR Sodium Potassium Chloride BUN Creatinine POC Glucose (mg/dL) 188 H Alkaline Phosphatase Troponin I 0.035 H* - Diagnostic Findings Chest x-ray: image reviewed Assessment and Plan Assessment: Acute on chronic systolic congestive heart failure secondary to fluid volume overload from missed hemodialysis Ischemic cardiomyopathy, EF less than 20%status post AICD Chronic kidney disease stage III from diabetic nephropathy and nephrosclerosis, to receive dialysis Saturday's Acute kidney injury secondary to recently missed hemodialysis session, worsening renal function Recent S/p right [id number]-[id number] amputation on 07/26/2023 from infected right heel diabetic ulcer with prior history of debridement. Culture showing MRSA. Nonhealing. Lower extremity chronic venous insufficiency COPD, currently stable History of chronic tobacco dependence History of marijuana use Diabetes mellitus type 2 chronically on insulin, uncontrolled with hypoglycemia Hyperlipidemia Moderate to severe MR/moderate TR and severe pulmonary hypertension Chronic low back pain Essential hypertension Obstructive sleep apnea sometimes uses CPAP machine Diabetic peripheral neuropathy Plan: The patient was seen and evaluated Chest x-ray, ultrasound of the chest, labs and medications reviewed Lung tissue within the pleural fluid, no plans for thoracentesis Scheduled for hemodialysis today and again tomorrow Plan is for ultrafiltration of 3 to 3.5 liters as tolerated Educated regarding the importance of medication and hemodialysis compliance Continue bronchodilators Titrate the FiO2 as tolerated We will continue to follow and make further recommendations based on his clinical status I have personally seen and examined the patient, performed the documentation and the assessment and plan as written. Number of minutes spent on the visit: 20.
--- NOTE | 2023-08-22 17:25 | P.GSCN ---
History of Present Illness History of present illness: 53-year-old gentleman well-known to me from the past. Patient has a chronic wound right foot in the past we treated above-knee amputation on the right side incision site is completely healed patient has some superficial ulcer anterior aspect of the lower leg we have been treating with local wound care using extra silver dressing should be changed every 48 hours Medical history patient came with history of shortness of breath patient also has a history of congestive heart failure, sleep apnea, no COPD, no diabetes, Patient was seen in the emergency room right BKA stump is healed no discharge or redness noted there is some superficial ulcer lower extremity with some brawny induration lower extremity we have been treating with extracellular change every 48 hours Vascular femorals are 1+ Will follow with you patient and her antibiotic and her medical care left lower extremity needs dressing change every 48 hours with extra silver we will follow with you Past Medical History Past Medical History: Asthma, Coronary Artery Disease (CAD), Chest Pain / Angina, Heart Failure, COPD, Diabetes Mellitus, GERD/Reflux, Hyperlipidemia, Hypertension, Myocardial Infarction ([place]), Pneumonia, Sleep Apnea/CPAP/BIPAP, Supraventricular Tachycardia (SVT) Additional Past Medical History / Comment(s): Ischemic cardiomyopathy, chronic CHF, SVT, IDDM type II, KAMINI with CPAP occasionally used, chronic cervical/back pain, DJD, diabetic foot wounds x 4 months. Dialysis Last Myocardial Infarction Date:: 12/11/17 History of Any Multi-Drug Resistant Organisms: MRSA Year Discovered:: 06/15/23 MDRO Source:: Right Foot Past Surgical History: Adenoidectomy, AICD, Back Surgery, Cholecystectomy, EPS, Heart Catheterization, Pacemaker, Tonsillectomy Additional Past Surgical History / Comment(s): 12/10/17 cardiac cath, previous cardiac cath, 09/02/14 AICD/pacer, EGD/colonoscopy, low back surgery with fusion. Past Anesthesia/Blood Transfusion Reactions: Motion Sickness Additional Past Anesthesia/Blood Transfusion Reaction / Comm: Pt states he received blood with back surgery without reaction. Type of Cardiac Device: Permanent Pacemaker, AICD Device Placement Date:: 09-02-14 Past Psychological History: ADD/ADHD, Anxiety Smoking Status: Current every day smoker Past Alcohol Use History: Occasional Past Drug Use History: Marijuana - Past Family History Father Additional Family Medical History / Comment(s): Pt has not kept in close contact with his father for many yrs. Father was an alcoholic and pt believes he has from cirrhosis of the liver. Mother History Unknown: Yes Additional Family Medical History / Comment(s): Pt is not in contact with his mother or his father who he has heard had . Medications and Allergies Home Medications Medication Instructions Recorded Confirmed Type Albuterol Inhaler [Ventolin Hfa 2 puff INHALATION RT-QID PRN 07/06/22 08/22/23 History Inhaler] SILVER sulfADIAZINE CREAM 1 applic TOPICAL SUWEFR 06/04/23 08/22/23 History [Silvadene Cream] Acetaminophen Tab [Tylenol] 650 mg PO Q6HR PRN tab 07/02/23 08/22/23 Rx DULoxetine HCL [Cymbalta] 30 mg PO DAILY cap 07/02/23 08/22/23 Rx Folic Acid 1 mg PO DAILY tab 07/02/23 08/22/23 Rx Ipratropium-Albuterol Nebulize 3 ml INHALATION RT-QID each 07/02/23 08/22/23 Rx [Duoneb 0.5 mg-3 mg/3 ml Soln] Lactulose [Cephulac] 20 gm PO DAILY PRN ml 07/02/23 08/22/23 Rx Thiamine [Vitamin B-1] 100 mg PO DAILY #30 tablet 07/02/23 08/22/23 Rx fluPHENAZine [Prolixin] 3 mg PO HS tab 07/02/23 08/22/23 Rx Aspirin 81 mg PO DAILY 07/04/23 08/22/23 History Famotidine [Pepcid] 20 mg PO DAILY 07/04/23 08/22/23 History Insulin Glargine,Hum.rec.anlog 28 units SQ HS 07/04/23 08/22/23 History [Toujeo Solostar] Metoprolol Tartrate [Lopressor] 25 mg PO BID 07/04/23 08/22/23 History Midodrine HCl [ProAmatine] 10 mg PO TID@0730,1100,1600 07/04/23 08/22/23 History Multivitamins, Thera [Multivitamin 1 tab PO DAILY 07/04/23 08/22/23 History (formulary)] Torsemide [Soaanz] 40 mg PO SUMOWEFR@0700 07/04/23 08/22/23 History Torsemide [Soaanz] 40 mg PO TUTHSA@1000 07/04/23 08/22/23 History Ascorbic Acid [Vitamin C] 1,000 mg PO DAILY tab 07/09/23 08/22/23 Rx INSULIN ASPART (NovoLOG) [NovoLOG See Protocol SQ ACHS 07/20/23 08/22/23 History (formulary)] ALPRAZolam [Xanax] 0.5 mg PO Q8H PRN 08/22/23 08/22/23 History Amiodarone [Cordarone] 200 mg PO DAILY 08/22/23 08/22/23 History HYDROcodone/APAP 5-325MG [[place] 1 tab PO Q8HR 08/22/23 08/22/23 History 5-325] traZODone HCL [Desyrel] 50 mg PO HS PRN 08/22/23 08/22/23 History Allergies Allergy/AdvReac Type Severity Reaction Status Date / Time azithromycin Allergy Anaphylaxis Verified 08/22/23 08:29 gemfibrozil [From Lopid] Allergy Rash/Hives Verified 08/22/23 08:29 Surgical - Exam Vital Signs Temp Pulse Resp BP Pulse Ox 99 F 80 16 100/67 98 08/21/23 23:02 08/21/23 23:02 08/21/23 23:02 08/21/23 23:02 08/21/23 23:02 Results - Labs 08/21/23 23:30 08/21/23 23:30 Abnormal Lab Results - Last 24 Hours (Table) 08/21/23 08/21/23 08/21/23 Range/Units 23:30 23:30 23:30 WBC 22.8 H (3.8-10.6) k/uL RBC 3.90 L (4.30-5.90) m/uL Hgb 11.0 L (13.0-17.5) gm/dL Hct 35.9 L (39.0-53.0) % MCHC 30.7 L (31.0-37.0) g/dL RDW 17.0 H (11.5-15.5) % Neutrophils # 19.6 H (1.3-7.7) k/uL Lymphocytes # 0.7 L (1.0-4.8) k/uL Monocytes # 2.0 H (0-1.0) k/uL PT 14.6 H (10.0-12.5) sec INR 1.4 H (<1.2) Sodium 132 L (137-145) mmol/L Potassium 5.4 H (3.5-5.1) mmol/L Chloride 94 L (98-107) mmol/L BUN 83 H (9-20) mg/dL Creatinine 6.21 H (0.66-1.25) mg/dL POC Glucose (mg/dL) (70-110) mg/dL Alkaline Phosphatase 187 H (38-126) U/L Troponin I (0.000-0.034) ng/mL 08/21/23 08/22/23 Range/Units 23:30 14:16 WBC (3.8-10.6) k/uL RBC (4.30-5.90) m/uL Hgb (13.0-17.5) gm/dL Hct (39.0-53.0) % MCHC (31.0-37.0) g/dL RDW (11.5-15.5) % Neutrophils # (1.3-7.7) k/uL Lymphocytes # (1.0-4.8) k/uL Monocytes # (0-1.0) k/uL PT (10.0-12.5) sec INR (<1.2) Sodium (137-145) mmol/L Potassium (3.5-5.1) mmol/L Chloride (98-107) mmol/L BUN (9-20) mg/dL Creatinine (0.66-1.25) mg/dL POC Glucose (mg/dL) 188 H (70-110) mg/dL Alkaline Phosphatase (38-126) U/L Troponin I 0.035 H* (0.000-0.034) ng/mL Diabetes panel 08/21/23 Range/Units 23:30 Sodium 132 L (137-145) mmol/L Potassium 5.4 H (3.5-5.1) mmol/L Chloride 94 L (98-107) mmol/L Carbon Dioxide 23 (22-30) mmol/L BUN 83 H (9-20) mg/dL Creatinine 6.21 H (0.66-1.25) mg/dL Glucose 94 (74-99) mg/dL Calcium 8.9 (8.4-10.2) mg/dL AST 29 (17-59) U/L ALT 17 (4-49) U/L Alkaline Phosphatase 187 H (38-126) U/L Total Protein 6.9 (6.3-8.2) g/dL Albumin 3.5 (3.5-5.0) g/dL Calcium panel 08/21/23 Range/Units 23:30 Calcium 8.9 (8.4-10.2) mg/dL Albumin 3.5 (3.5-5.0) g/dL Pituitary panel 08/21/23 Range/Units 23:30 Sodium 132 L (137-145) mmol/L Potassium 5.4 H (3.5-5.1) mmol/L Chloride 94 L (98-107) mmol/L Carbon Dioxide 23 (22-30) mmol/L BUN 83 H (9-20) mg/dL Creatinine 6.21 H (0.66-1.25) mg/dL Glucose 94 (74-99) mg/dL Calcium 8.9 (8.4-10.2) mg/dL Adrenal panel 08/21/23 Range/Units 23:30 Sodium 132 L (137-145) mmol/L Potassium 5.4 H (3.5-5.1) mmol/L Chloride 94 L (98-107) mmol/L Carbon Dioxide 23 (22-30) mmol/L BUN 83 H (9-20) mg/dL Creatinine 6.21 H (0.66-1.25) mg/dL Glucose 94 (74-99) mg/dL Calcium 8.9 (8.4-10.2) mg/dL Total Bilirubin 0.9 (0.2-1.3) mg/dL AST 29 (17-59) U/L ALT 17 (4-49) U/L Alkaline Phosphatase 187 H (38-126) U/L Total Protein 6.9 (6.3-8.2) g/dL Albumin 3.5 (3.5-5.0) g/dL
[2023-08-22 18:10] LABS: Glucose,Whole Blood 94 mg/dL (70-110)
[2023-08-22 19:12] LABS: Hepatitis B Surface Antigen Nonreactive
[2023-08-22] MEDS ORDERED: INSULIN DETEMIR (LEVEMIR) 100 UNIT/ML SYR SQ SCH (21:00)
[2023-08-22 21:11] LABS: Hepatitis B Surface AB- Quant 3.5 mIU/mL
[2023-08-22 21:18] LABS: Glucose,Whole Blood 144 mg/dL (70-110)
[2023-08-22] MEDS: INSULIN DETEMIR (LEVEMIR) 100 UNIT/ML SYR SQ SCH (21:34)
[2023-08-23 04:56] LABS: Glucose,Whole Blood 127 mg/dL (70-110)
[2023-08-23 06:19] LABS: Glucose,Whole Blood 147 mg/dL (70-110)
--- NOTE | 2023-08-23 08:58 | XR ---
EXAMINATION TYPE: XR chest 1V portable DATE OF EXAM: 08/23/2023 8:26 AM CLINICAL INDICATION:Male, 53 years old with history of effusion; COMPARISON: None TECHNIQUE: XR chest 1V portable Frontal view of the chest. FINDINGS: Lungs/Pleura: Large right pleural effusion similar to prior. There is no evidence of left pleural eff usion, focal consolidation, or pneumothorax. Pulmonary vascularity: Unremarkable. Heart/mediastinum: Cardiomediastinal silhouette is enlarged and stable. Single-lead cardiac conductio n device overlying the left hemithorax with lead projecting over the right ventricle. Musculoskeletal: No acute osseous pathology. Other findings: None Lines/Tubes: Right internal jugular central venous catheter with distal tip at the cavoatrial junction. IMPRESSION: 1. Large right pleural effusion. 2. Right central venous catheter tip in appropriate position.
[2023-08-23 09:06] LABS: Anisocytosis Slight; Basophils % (A) 0 %; Eosinophils # (A) 0.1 k/uL (0-0.7); Eosinophils % (A) 1 %; HCT 35.4 % (39.0-53.0); HGB 10.9 gm/dL (13.0-17.5); Hypochromasia Marked; Lymphocytes # (A) 0.8 k/uL (1.0-4.8); Lymphocytes % (A) 6 %; MCHC 30.9 g/dL (31.0-37.0); MCV 93.9 fL (80.0-100.0); Mean Platelet Volume 8.1; Monocytes # (A) 1.1 k/uL (0-1.0); Monocytes % (A) 8 %; Neutrophils # (A) 11.6 k/uL (1.3-7.7); Neutrophils % (A) 84 %; Platelet Count 194 k/uL (150-450); RBC 3.77 m/uL (4.30-5.90); RDW 16.9 % (11.5-15.5); WBC 13.9 k/uL (3.8-10.6)
[2023-08-23 09:23] LABS: African American GFR (CKD) 14 (>60 ml/min/1.73 sqM); Anion Gap 15 mmol/L; Blood Urea Nitrogen 62 mg/dL (9-20); Calcium 8.7 mg/dL (8.4-10.2); Carbon Dioxide 23 mmol/L (22-30); Chloride 94 mmol/L (98-107); Glucose 118 mg/dL (74-99); Non-African American GFR(CKD) 12 (>60 ml/min/1.73 sqM); Potassium 5.2 mmol/L (3.5-5.1); Sodium 132 mmol/L (137-145)
[2023-08-23 11:33] LABS: Glucose,Whole Blood 99 mg/dL (70-110)
--- NOTE | 2023-08-23 13:38 | P.PN ---
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 Patient follows in the office with Dr. Abbasi. We have been asked to see the patient in consultation for congestive heart failure. Patient examined at the bedside in the emergency room. Patient was recently hospitalized in June 2023 and underwent right BKA. He was discharged to [facility] in [place]. Patient states he missed his hemodialysis session yesterday because he had an appointment that he could not miss so he decided to skip hemodialysis. The patient states he began to feel short of breath yesterday evening and was brought to the hospital for further evaluation. The patient un derwent hemodialysis this morning. He states his breathing has improved although he continues to be short of breath. He currently denies any chest pain or pressure. DIAGNOSTICS: - EKG reveals sinus mechanism with no signs of acute ischemia. Low voltage QRS. - Chest xray large right pleural effusion - Ultrasound of the chest reveals right chest wall soft tissue along the pleura with large pleural effusion. Small fluid pocket on the left. - Laboratory data: WBC 22.8. Hemoglobin 11.0. Platelet count 189. Sodium 132. Potassium 5.4. BUN 83. Creatinine 6.21. Troponin 0.035. proBNP 72,100. - Current home cardiac medications include amiodarone 200 mg daily, aspirin 81 mg daily, torsemide 40 mg daily, metoprolol tartrate 25 mg twice a day, midodrine 10 mg 3 times a day - Most recent echocardiogram obtained in June 2022 revealed ejection fraction less than 20%, severe pulmonary hypertension, moderate to severe MR, moderate TR - Cardiac catheterization history: February 2018 revealing minimal CAD August 23, 2023 Patient examined this morning at the bedside. Patient currently denies chest pain or pressure. He reports improvement in his shortness of breath. Patient underwent hemodialysis yesterday with removal of 3 L. He also underwent hemodialysis today with removal of 3 L. Telemetry reveals sinus mechanism with heart rate in the 70s. Blood pressure remains on the lower side with a systolic blood pressure in the 90s which is patient's baseline. PHYSICAL EXAM: VITAL SIGNS: Reviewed. GENERAL: Well-developed in no acute distress. HEENT: Head is normocephalic. Pupils are equal, round. Sclerae anicteric. Mucous membranes of the mouth are moist. Neck supple. + JVD. No thyromegaly LUNGS: Respirations even and unlabored. Lungs with significantly decreased breath sounds on the right and crackles to the left base HEART: Regular rate and rhythm. S1 and S2 heard. Systolic murmur noted. ABDOMEN: Soft. Nondistended. Nontender. EXTREMITIES: Normal range of motion. No clubbing or cyanosis. Right AKA. Left lower extremity with 3+ edema and gauze dressing noted to calf. NEUROLOGIC: Awake and alert. Oriented x 3. ASSESSMENT: Shortness of breath Volume overload, secondary to missed hemodialysis session yesterday Acute on chronic heart failure with reduced EF, 20% Large right-sided pleural effusion End-stage renal disease on hemodialysis Nonischemic cardiomyopathy History of AICD implantation History of nonsustained ventricular tachycardia, maintained on amiodarone outpatient Recent right AKA secondary to nonhealing diabetic ulcer, June 2023 Hyperlipidemia COPD Nicotine dependence Diabetes Valvular heart disease including moderate to severe MR and moderate TR Severe pulmonary hypertension Chronic hypotension, maintained on midodrine outpatient, unable to tolerate BALBINA/ARB History of medication noncompliance PLAN: 2D echo ordered. Await results. Pulmonary following. No plans for thoracentesis at this time as pleural effusion has lung tissue obscuring the fluid and would be rather difficult to perform per their dictation Nephrology is following. Hemodialysis and diuretics per nephrology Continue additional cardiac medications Further recommendations pending patient course Nurse practitioner note has been reviewed by physician. Signing provider agrees with the documented findings, assessment, and plan of care documented by [employer] as a scribe. Objective - Vital Signs Vital signs: Vital Signs Temp 97.6 F 08/23/23 13:21 Pulse 65 08/23/23 13:31 Resp 16 08/23/23 13:21 BP 99/66 08/23/23 13:21 Pulse Ox 96 08/23/23 09:49 FiO2 Intake & Output 08/22/23 08/23/23 08/23/23 18:59 06:59 18:59 Intake Total 400 598 538 Output Total 3400 3400 Balance -3000 598 -5898 Weight 110 kg 110 kg Intake: IV 20 Invasive Line 1 20 Oral 598 118 Hemodialysis 400 400 Output: Hemodialysis 3400 3400 Other: Voiding Method Urinal Urinal Diaper Diaper - Labs CBC & Chem 7: 08/23/23 08:04 08/23/23 08:04 Labs: Abnormal Lab Results - Last 24 Hours (Table) 08/22/23 08/22/23 08/23/23 Range/Units 14:16 21:15 04:54 WBC (3.8-10.6) k/uL RBC (4.30-5.90) m/uL Hgb (13.0-17.5) gm/dL Hct (39.0-53.0) % MCHC (31.0-37.0) g/dL RDW (11.5-15.5) % Neutrophils # (1.3-7.7) k/uL Lymphocytes # (1.0-4.8) k/uL Monocytes # (0-1.0) k/uL Sodium (137-145) mmol/L Potassium (3.5-5.1) mmol/L Chloride (98-107) mmol/L BUN (9-20) mg/dL Creatinine (0.66-1.25) mg/dL Glucose (74-99) mg/dL POC Glucose (mg/dL) 188 H 144 H 127 H (70-110) mg/dL Phosphorus (2.5-4.5) mg/dL 08/23/23 08/23/23 08/23/23 Range/Units 06:16 08:04 08:04 WBC 13.9 H (3.8-10.6) k/uL RBC 3.77 L (4.30-5.90) m/uL Hgb 10.9 L (13.0-17.5) gm/dL Hct 35.4 L (39.0-53.0) % MCHC 30.9 L (31.0-37.0) g/dL RDW 16.9 H (11.5-15.5) % Neutrophils # 11.6 H (1.3-7.7) k/uL Lymphocytes # 0.8 L (1.0-4.8) k/uL Monocytes # 1.1 H (0-1.0) k/uL Sodium 132 L (137-145) mmol/L Potassium 5.2 H (3.5-5.1) mmol/L Chloride 94 L (98-107) mmol/L BUN 62 H (9-20) mg/dL Creatinine 5.09 H (0.66-1.25) mg/dL Glucose 118 H (74-99) mg/dL POC Glucose (mg/dL) 147 H (70-110) mg/dL Phosphorus (2.5-4.5) mg/dL 08/23/23 Range/Units 08:04 WBC (3.8-10.6) k/uL RBC (4.30-5.90) m/uL Hgb (13.0-17.5) gm/dL Hct (39.0-53.0) % MCHC (31.0-37.0) g/dL RDW (11.5-15.5) % Neutrophils # (1.3-7.7) k/uL Lymphocytes # (1.0-4.8) k/uL Monocytes # (0-1.0) k/uL Sodium (137-145) mmol/L Potassium (3.5-5.1) mmol/L Chloride (98-107) mmol/L BUN (9-20) mg/dL Creatinine (0.66-1.25) mg/dL Glucose (74-99) mg/dL POC Glucose (mg/dL) (70-110) mg/dL Phosphorus 8.7 H (2.5-4.5) mg/dL
--- NOTE | 2023-08-23 15:22 | P.PN ---
Progress Note - Text Progress Note Date: 08/23/23 Chief Complaint: Short of breath This is a 53-year-old patient, follows with Dr. Rodríguez. Chronic stable medical condition include CHF EF less than 20%, COPD, diabetes mellitus type 2, hypertension, hyperlipidemia, obstructive sleep apnea, anxiety, AICD, lower extremity venous insufficiency. Patient had lower extremity wounds for which she followed with Dr. Kaur from vascular and ID Dr. Abbasi. Multiple admissions. Patient finally agreed to amputation for the right foot wound that was not healing.. Finally on July 26 patient underwent right above-knee amputation by Dr. Kaur from vascular. Patient was discharged to a [facility] care facility. Patient had been noncompliant with hemodialysis prior to that admission. Patient presented to our ER after being progressively increasing shortness of breath. He missed his dialysis yesterday. He became increasingly short of breath. Increasing edema. Some cough. Denies any fever and chills. Tired. Nephrology was called. Patient getting 3 L removed with dialysis today. Patient currently a resident of [facility]. Patient received midodrine today before started dialysis August 23: Tolerated breakfast well. 3 L of fluid being removed today. Patient is due for his generator change on August 28. Cardiology consulted and informed. Has edema. Active Medications Acetaminophen (Acetaminophen Tab 325 Mg Tab) 650 mg PO Q6HR PRN PRN Reason: Mild Pain or Fever > 100.5 Hydrocodone Bitart/Acetaminophen (Hydrocodone/Apap 5-325mg 1 Each Tab) 1 each PO Q8HR [facility] Last Admin: 08/23/23 14:37 Dose: 1 each Albuterol Sulfate (Albuterol Hfa Inhaler) 2 puff INHALATION RT-QID PRN PRN Reason: Shortness Of Breath Albuterol/Ipratropium (Ipratropium-Albuterol 3 Ml Neb) 3 ml INHALATION RT-Q2H PRN PRN Reason: Shortness Of Breath Or Wheezing Albuterol/Ipratropium (Ipratropium-Albuterol 3 Ml Neb) 3 ml INHALATION RT-QID [facility] Last Admin: 08/23/23 13:25 Dose: 3 ml Alprazolam (Alprazolam 0.25 Mg Tab) 0.5 mg PO Q8H PRN PRN Reason: Anxiety Last Admin: 08/23/23 10:06 Dose: 0.5 mg Amiodarone HCl (Amiodarone 200 Mg Tab) 200 mg PO DAILY [facility] Last Admin: 08/23/23 14:37 Dose: 200 mg Ascorbic Acid (Ascorbic Acid 500 Mg Tab) 1,000 mg PO DAILY [facility] Last Admin: 08/23/23 14:37 Dose: 1,000 mg Aspirin (Aspirin 81 Mg) 81 mg PO DAILY [facility] Last Admin: 08/23/23 14:37 Dose: 81 mg Calcium Carbonate/Glycine (Calcium Carbonate 500 Mg Chewable) 1,000 mg PO Q4HR PRN PRN Reason: Dyspepsia Dextrose/Water (Dextrose 50% Syringe 50 Ml) 25 ml IVP PER PROTOCOL PRN; Protocol PRN Reason: Hypoglycemia Dextrose/Water (Dextrose 50% Syringe 50 Ml) 50 ml IVP PER PROTOCOL PRN; Protocol PRN Reason: Hypoglycemia Duloxetine HCl (Duloxetine Hcl 30 Mg Capsule.Dr) 30 mg PO DAILY [facility] Last Admin: 08/23/23 14:37 Dose: 30 mg Famotidine (Famotidine 20 Mg Tab) 20 mg PO DAILY [facility] Last Admin: 08/23/23 14:37 Dose: 20 mg Fluphenazine HCl (Fluphenazine 1 Mg Tab) 3 mg PO HS [facility] Last Admin: 08/22/23 21:35 Dose: 3 mg Folic Acid (Folic Acid 1 Mg Tab) 1 mg PO DAILY [facility] Last Admin: 08/23/23 14:37 Dose: 1 mg Insulin Aspart (Insulin Aspart (Novolog) 100 Unit/Ml Vial) 0 unit SQ ACHS [facility]; Protocol Last Admin: 08/23/23 12:21 Dose: Not Given Insulin Detemir (Insulin Detemir (Levemir) 100 Unit/Ml Syr) 18 unit SQ HS [facility] Last Admin: 08/22/23 21:34 Dose: 18 unit Lactulose (Lactulose 20 Gm/30 Ml Cup) 20 gm PO DAILY PRN PRN Reason: Constipation Melatonin (Melatonin 3 Mg Tablet) 3 mg PO HS PRN PRN Reason: Insomnia Metoprolol Tartrate (Metoprolol Tartrate 25 Mg Tab) 25 mg PO BID [facility] Last Admin: 08/23/23 14:37 Dose: 25 mg Midodrine (Midodrine 5 Mg Tab) 10 mg PO AC-TID [facility] Last Admin: 08/23/23 14:37 Dose: 10 mg Multivitamins (Multivitamins, Thera 1 Each Tab) 1 each PO DAILY [facility] Last Admin: 08/23/23 14:37 Dose: 1 each Naloxone HCl (Naloxone 0.4 Mg/Ml 1 Ml Vial) 0.2 mg IV Q2M PRN PRN Reason: Opioid Reversal Ondansetron HCl (Ondansetron 4 Mg/2 Ml Vial) 4 mg IVP Q8HR PRN PRN Reason: Nausea And Vomiting Trazodone HCl (Trazodone Hcl 50 Mg Tab) 50 mg PO HS PRN PRN Reason: Agitation Social history: Lives with his 20-year-old son. Disabled. 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 Smoking 2 packs a day for most of his life . Stop drinking heavy alcohol about 20 years ago. Has done marijuana. Physical examination: VITAL SIGNS: 97.6, 68, 16, 99 x 66, 97% on 2 L GENERAL: Reclining in bed, less lethargic EYES: Pupils equal. Conjunctiva normal. HEENT: External appearance of nose and ears normal, oral cavity grossly normal. NECK: JVD raised; masses not palpable. HEART: First and second heart sounds are normal; significant edema LUNGS: Respiratory rate increased; diminished breath sounds ABDOMEN: Soft, nontender, liver spleen not palpable, no masses palpable. PSYCH: A bit less lethargic and able to answer questions. NEUROLOGICAL: Cranial nerves grossly intact. No facial asymmetry DERMATOLOGICAL: Right above-knee amputation. The stump is gross stitches. Left lower extremity wound INVESTIGATIONS, reviewed in the clinical context: August 23: White count 13.9 hemoglobin 10.9 platelets 194 potassium 5.2 BUN 62 creatinine 5.09 August 21, 2023: White count 22.8 hemoglobin 11 platelets were 89 sodium 132 potassium 5.4 BUN 83 creatinine 6.21 Troponin I 0.035. proBNP 10532 Influenza type A, type B, RSV, COVID-19: Not detected EKG tracing personally reviewed by me-normal sinus rhythm. Chest x-ray film personally reviewed by me-large right pleural effusion Chest ultrasound: Large right pleural effusion Assessment and plan: -Acute on chronic congestive heart failure nonischemic cardiomyopathy systolic dysfunction EF less than 20%: Worsening from missed hemodialysis.: Slow to respond Hemodialysis done yesterday and today. Both days 3 L being removed. AICD. Fluid restriction 1500 mL. Follow-up with cardiology and nephrology -Acute uremic and hypoxic encephalopathy: Some improvement -Acute hypoxic respiratory failure from fluid overload/CHF. 3 L nasal cannula -Right above-knee amputation by Dr. Yared Lugo on June 2024 Follow-up with Dr. Kaur -Acute COPD exacerbation in a previous smoker Ventolin. DuoNeb-4 times daily. - AICD -Diabetes mellitus type 2 chronically on insulin, uncontrolled with [id number] Levemir 18 units subcu Diabetic diet. Accu-Cheks and sliding scale -Iron deficiency anemia aranesp -Hyperlipidemia Lipitor -End-stage kidney disease on hemodialysis Right IJ dialysis catheter -Hyponatremia-mild Fluid restriction -Chronic low back pain. Patient's had pain on and off for about 10 years. Has had prior surgery. Does not remember who did the surgery. When necessary pain medication -Hypotension. Midodrine -Obstructive sleep apnea sometimes uses CPAP machine -Diabetic peripheral neuropathy -Anxiety, depression Trazodone, Cymbalta -DJD Tylenol when necessary -AICD -Lower extremity chronic venous insufficiency, with left lower extremity wounds Dr. Kaur consulted -Full code Past Medical History Past Medical History: Asthma, Coronary Artery Disease (CAD), Chest Pain / Angina, Heart Failure, COPD, Diabetes Mellitus, GERD/Reflux, Hyperlipidemia, Hypertension, Myocardial Infarction ([place]), Pneumonia, Sleep Apnea/CPAP/BIPAP, Supraventricular Tachycardia (SVT) Additional Past Medical History / Comment(s): Ischemic cardiomyopathy, chronic CHF, SVT, IDDM type II, KAMINI with CPAP occasionally used, chronic cervical/back pain, DJD, diabetic foot wounds x 4 months. Dialysis Last Myocardial Infarction Date:: 12/11/17 History of Any Multi-Drug Resistant Organisms: MRSA Date of last positivie culture/infection: 06/15/23 MDRO Source:: Right Foot Past Surgical History: Adenoidectomy, AICD, Back Surgery, Cholecystectomy, EPS, Heart Catheterization, Pacemaker, Tonsillectomy Additional Past Surgical History / Comment(s): 12/10/17 cardiac cath, previous cardiac cath, 09/02/14 AICD/pacer, EGD/colonoscopy, low back surgery with fusion. Past Anesthesia/Blood Transfusion Reactions: Motion Sickness Additional Past Anesthesia/Blood Transfusion Reaction / Comment(s): Pt states he received blood with back surgery without reaction. Type of Cardiac Device: Permanent Pacemaker, AICD Device Placement Date:: 09-02-14 Past Psychological History: ADD/ADHD, Anxiety Smoking Status: Current every day smoker Past Alcohol Use History: Occasional Past Drug Use History: Marijuana
--- NOTE | 2023-08-23 16:21 | P.PN ---
Subjective Progress Note Date: 08/23/23 Principal diagnosis: Acute on chronic systolic congestive heart failure with fluid overload and right-sided pleural effusion This is a pleasant 53-year-old male patient with a known history of asthma, neck and ongoing tobacco dependence, marijuana use, coronary artery disease, congestive heart failure, chronic obstructive pulmonary disease, diabetes mellitus, hyperlipidemia, hypertension, ischemic cardiomyopathy with previous AICD placement, nonhealing ulceration of the right heel with subsequent [id number] amputation on July 26, 2023, chronic kidney disease receiving hemodialysis Saturday, diabetes mellitus, obstructive sleep apnea with CPAP use. He missed his dialysis on Saturday due to having an important meeting to go to. He presented here late last night with worsening shortness of breath and dyspnea on exertion. He also had increased lower extremity edema. Chest x-ray revealed a large right pleural effusion. White count platelets 189. INR 1.4. Sodium 132. Potassium 5.4. Bicarb 23. BUN 83. Creatinine 6.21. Glucose 188. Pro BNP level 72,100. Troponin 0.035. Viral screen negative. Ultrasound of the right chest revealed a 10.6 cm pocket however there was lung tissue seen within the fluid. He is seen today in consultation in the emergency department. He is currently sitting up on the stretcher. Awake and alert in no acute distress. Only maintaining O2 saturation in the 90s on 3 L/min per nasal cannula. Has been afebrile. Hemodynamically stable Patient was reevaluated today on 08/23/2023, he is resting in bed, receiving hemodialysis, chest x-ray this morning continues to show good sized right-sided pleural effusion however the ultrasound showed lung tissue which would likely interfere with the thoracentesis hence I am recommending for now medical therapy/hemodialysis and ultrafiltration. If no improvement could consider repeat ultrasound and proceed with right-sided thoracentesis. Patient does not seem to be in distress, he is actually on 3 L nasal cannula, and his O2 saturation is in the 90s. Blood pressure is stable. CBC is relatively normal basic metabolic profile is normal BUN is 62 creatinine 5.09 Objective - Vital Signs Vital signs: Vital Signs Temp 97.6 F 08/23/23 13:21 Pulse 65 08/23/23 13:31 Resp 16 08/23/23 13:21 BP 99/66 08/23/23 13:21 Pulse Ox 96 08/23/23 09:49 FiO2 Intake & Output 08/22/23 08/23/23 08/23/23 18:59 06:59 18:59 Intake Total 400 598 906 Output Total 3400 3400 Balance -3000 598 -2492 Weight 110 kg 110 kg Intake: IV 30 Invasive Line 1 30 Oral 598 236 Hemodialysis 400 400 Other 240 Output: Hemodialysis 3400 3400 Other: Voiding Method Urinal Urinal Diaper Diaper # Voids 1 - Exam GENERAL EXAM: Alert, 53-year-old male patient, on 3 L nasal cannula, fairly comfortable in no apparent distress. Receiving hemodialysis during my evaluation HEAD: Normocephalic. EYES: Normal reaction of pupils, equal size. NOSE: Clear with pink turbinates. THROAT: No erythema or exudates. NECK: No masses, no JVD. CHEST: No chest wall deformity. LUNGS: Minich breath sounds on the left at the right base CVS: S1 and S2 normal with no audible murmur, regular rhythm. ABDOMEN: No hepatosplenomegaly, normal bowel sounds, no guarding or rigidity. SKIN: No rashes CENTRAL NERVOUS SYSTEM: Alert oriented x 3 no gross deficit EXTREMITIES: Right above-knee amputation noted - Labs CBC & Chem 7: 08/23/23 08:04 08/23/23 08:04 Labs: Abnormal Lab Results - Last 24 Hours (Table) 08/22/23 08/23/23 08/23/23 Range/Units 21:15 04:54 06:16 WBC (3.8-10.6) k/uL RBC (4.30-5.90) m/uL Hgb (13.0-17.5) gm/dL Hct (39.0-53.0) % MCHC (31.0-37.0) g/dL RDW (11.5-15.5) % Neutrophils # (1.3-7.7) k/uL Lymphocytes # (1.0-4.8) k/uL Monocytes # (0-1.0) k/uL Sodium (137-145) mmol/L Potassium (3.5-5.1) mmol/L Chloride (98-107) mmol/L BUN (9-20) mg/dL Creatinine (0.66-1.25) mg/dL Glucose (74-99) mg/dL POC Glucose (mg/dL) 144 H 127 H 147 H (70-110) mg/dL Phosphorus (2.5-4.5) mg/dL 08/23/23 08/23/23 08/23/23 Range/Units 08:04 08:04 08:04 WBC 13.9 H (3.8-10.6) k/uL RBC 3.77 L (4.30-5.90) m/uL Hgb 10.9 L (13.0-17.5) gm/dL Hct 35.4 L (39.0-53.0) % MCHC 30.9 L (31.0-37.0) g/dL RDW 16.9 H (11.5-15.5) % Neutrophils # 11.6 H (1.3-7.7) k/uL Lymphocytes # 0.8 L (1.0-4.8) k/uL Monocytes # 1.1 H (0-1.0) k/uL Sodium 132 L (137-145) mmol/L Potassium 5.2 H (3.5-5.1) mmol/L Chloride 94 L (98-107) mmol/L BUN 62 H (9-20) mg/dL Creatinine 5.09 H (0.66-1.25) mg/dL Glucose 118 H (74-99) mg/dL POC Glucose (mg/dL) (70-110) mg/dL Phosphorus 8.7 H (2.5-4.5) mg/dL Assessment and Plan Assessment: Impression: Acute on chronic systolic congestive heart failure secondary to fluid volume overload from missed hemodialysis Ischemic cardiomyopathy, EF less than 20%status post AICD Chronic kidney disease stage III from diabetic nephropathy and nephrosclerosis, to receive dialysis Saturday's Acute kidney injury secondary to recently missed hemodialysis session, worsening renal function Recent S/p right [id number] amputation on 07/26/2023 from infected right heel diabetic ulcer with prior history of debridement. Culture showing MRSA. Nonhealing. Lower extremity chronic venous insufficiency COPD, currently stable History of chronic tobacco dependence History of marijuana use Diabetes mellitus type 2 chronically on insulin, uncontrolled with hypoglycemia Hyperlipidemia Moderate to severe MR/moderate TR and severe pulmonary hypertension Chronic low back pain Essential hypertension Obstructive sleep apnea sometimes uses CPAP machine Diabetic peripheral neuropathy Recommendations: Continue hemodialysis No immediate plans for thoracentesis at this point Repeat chest x-ray in a couple of days, if no improvement consider repeat ultrasound and proceed with thoracentesis with bedside ultrasound available Continue bronchodilators Continue oxygen and titrate accordingly Will continue to follow-up with Time with Patient: Less than 30
[2023-08-23 16:28] LABS: Glucose,Whole Blood 136 mg/dL (70-110)
--- NOTE | 2023-08-23 19:08 | CA ---
Transthoracic Echo Report Name: Ezequiel Haynes Age: 53 Gender: M : 1970 Exam Date: 08/23/2023 15:50 Exam Location: [facility] Ht (in): 69 Wt (lb): 245 Ordering Physician: Blanca Merino Attending/Referring Phys: [id number], Wilber Denitrator Villa Guzman RDCS Procedure CPT: Indications: CHF, valvular heart disease, hx EF 20% Cardiac Hx: Technical Quality: Fair Contrast 1: Total Dose (mL): Contrast 2: Total Dose (mL): MEASUREMENTS (Male / Female) Normal Values 2D ECHO LV Diastolic Diameter PLAX 6.8 cm 4.2 - 5.9 / 3.9 - 5.3 cm LV Systolic Diameter PLAX 6.0 cm IVS Diastolic Thickness 1.1 cm 0.6 - 1.0 / 0.6 - 0.9 cm LVPW Diastolic Thickness 1.4 cm 0.6 - 1.0 / 0.6 - 0.9 cm LV Relative Wall Thickness 0.4 RV Internal Dim ED PLAX 4.5 cm LVOT Diameter 2.2 cm Aortic Root Diameter 3.3 cm LA Systolic Diameter LX 3.5 cm 3.0 - 4.0 / 2.7 - 3.8 cm LV Diastolic Volume MOD BP 182.9 cm??? 67 - 155 / 56 - 104 cm??? LV Systolic Volume MOD BP 124.2 cm??? 22 - 58 / 19 - 49 cm??? LV Ejection Fraction MOD BP 32.1 % >= 55 % LV Cardiac Index MOD BP 1931.0 cm???/min???m??? LV Diastolic Volume MOD 4C 245.9 cm??? LV Systolic Volume MOD 4C 189.3 cm??? LV Ejection Fraction MOD 4C 23.0 % LV Cardiac Index MOD 4C 1862.6 cm???/min???m??? LV Diastolic Length 4C 9.0 cm LV Systolic Length 4C 8.4 cm LV Diastolic Volume MOD 2C 173.9 cm??? LV Systolic Volume MOD 2C 141.1 cm??? LV Ejection Fraction MOD 2C 18.9 % LV Cardiac Index MOD 2C 1079.6 cm???/min???m??? LV Diastolic Length 2C 8.3 cm LV Systolic Length 2C 7.7 cm LA Volume 78.5 cm??? 18 - 58 / 22 - 52 cm??? LA Volume Index 33.1 cm???/m??? 16 - 28 cm???/m??? DOPPLER AV Peak Velocity 90.1 cm/s AV Peak Gradient 3.2 mmHg MV Peak Velocity 99.0 cm/s MV Peak Gradient 3.9 mmHg MV Mean Velocity 52.3 cm/s MV Mean Gradient 1.3 mmHg MV Velocity Time Integral 19.7 cm MR Peak Velocity 379.8 cm/s MR Peak Gradient 57.7 mmHg Mitral E Point Velocity 85.1 cm/s Mitral A Point Velocity 53.3 cm/s Mitral E to A Ratio 1.6 MV Deceleration Time 146.1 ms TR Peak Velocity 302.0 cm/s TR Peak Gradient 36.5 mmHg Right Ventricular Systolic Press 41.5 mmHg PV Peak Velocity 80.2 cm/s PV Peak Gradient 2.6 mmHg FINDINGS Left Ventricle Severe left ventricular dilatation. Mid concentric LVH. Left ventricular ejection fraction is estimated at 15-20 %. Right Ventricle Moderate right ventricular dilatation. RVSP=41mmHg. Right Atrium Mild to moderate right atrial dilatation. Left Atrium Moderate left atrial dilatation. LA volume index= 35ml/m2 Mitral Valve Structurally normal mitral valve. Moderate MR. Aortic Valve Trileaflet aortic valve. No aortic stenosis. No aortic regurgitation. Tricuspid Valve Structurally normal tricuspid valve. Moderate TR. Pulmonic Valve Pulmonic valve not well visualized. No pulmonic regurgitation. Pericardium Not well visualized. Aorta Normal size aortic root. CONCLUSIONS Severely impaired LV function with EF between 15-20% Moderate mitral and tricuspid regurgitation Moderate pulmonary hypertension Previewed by: Dr. Tomer Jose MD (Electronically Signed) Final Date: 23 August 2023 19:07
--- NOTE | 2023-08-23 19:17 | P.PN ---
Subjective Patient is seen for follow-up for end-stage renal disease. Seen on hemodialysis Tolerating treatment well. Goal UF about 3.5 L. Tolerated 3.4 L of UF yesterday. Overall volume status appears much improved. Objective - Vital Signs Vital signs: Vital Signs Temp 97.9 F 08/23/23 17:13 Pulse 71 08/23/23 17:13 Resp 22 08/23/23 17:13 BP 95/70 08/23/23 17:13 Pulse Ox 97 08/23/23 17:16 FiO2 Intake & Output 08/23/23 08/23/23 08/24/23 06:59 18:59 06:59 Intake Total 598 1128 Output Total 3400 Balance 598 -2272 Weight 110 kg 110 kg Intake: IV 30 Invasive Line 1 30 Oral 598 458 Hemodialysis 400 Other 240 Output: Hemodialysis 3400 Other: Voiding Method Urinal Urinal Diaper Diaper # Voids 1 - Exam Patient is awake, comfortable, no acute distress Examination of the heart S1 and S2 Examination of the lungs bilateral breath sounds are heard Abdomen is soft obese Examination of lower extremity shows significant edema 3-4+ bilaterally. 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 - Labs CBC & Chem 7: 08/23/23 08:04 08/23/23 08:04 Labs: Abnormal Lab Results - Last 24 Hours (Table) 08/22/23 08/23/23 08/23/23 Range/Units 21:15 04:54 06:16 WBC (3.8-10.6) k/uL RBC (4.30-5.90) m/uL Hgb (13.0-17.5) gm/dL Hct (39.0-53.0) % MCHC (31.0-37.0) g/dL RDW (11.5-15.5) % Neutrophils # (1.3-7.7) k/uL Lymphocytes # (1.0-4.8) k/uL Monocytes # (0-1.0) k/uL Sodium (137-145) mmol/L Potassium (3.5-5.1) mmol/L Chloride (98-107) mmol/L BUN (9-20) mg/dL Creatinine (0.66-1.25) mg/dL Glucose (74-99) mg/dL POC Glucose (mg/dL) 144 H 127 H 147 H (70-110) mg/dL Phosphorus (2.5-4.5) mg/dL 08/23/23 08/23/23 08/23/23 Range/Units 08:04 08:04 08:04 WBC 13.9 H (3.8-10.6) k/uL RBC 3.77 L (4.30-5.90) m/uL Hgb 10.9 L (13.0-17.5) gm/dL Hct 35.4 L (39.0-53.0) % MCHC 30.9 L (31.0-37.0) g/dL RDW 16.9 H (11.5-15.5) % Neutrophils # 11.6 H (1.3-7.7) k/uL Lymphocytes # 0.8 L (1.0-4.8) k/uL Monocytes # 1.1 H (0-1.0) k/uL Sodium 132 L (137-145) mmol/L Potassium 5.2 H (3.5-5.1) mmol/L Chloride 94 L (98-107) mmol/L BUN 62 H (9-20) mg/dL Creatinine 5.09 H (0.66-1.25) mg/dL Glucose 118 H (74-99) mg/dL POC Glucose (mg/dL) (70-110) mg/dL Phosphorus 8.7 H (2.5-4.5) mg/dL 08/23/23 Range/Units 16:27 WBC (3.8-10.6) k/uL RBC (4.30-5.90) m/uL Hgb (13.0-17.5) gm/dL Hct (39.0-53.0) % MCHC (31.0-37.0) g/dL RDW (11.5-15.5) % Neutrophils # (1.3-7.7) k/uL Lymphocytes # (1.0-4.8) k/uL Monocytes # (0-1.0) k/uL Sodium (137-145) mmol/L Potassium (3.5-5.1) mmol/L Chloride (98-107) mmol/L BUN (9-20) mg/dL Creatinine (0.66-1.25) mg/dL Glucose (74-99) mg/dL POC Glucose (mg/dL) 136 H (70-110) mg/dL Phosphorus (2.5-4.5) mg/dL Assessment and Plan Assessment: 1. End-stage renal disease on hemodialysis on a Saturday schedule 2. Severe volume overload. 3. Large right pleural effusion 4. 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 5. CKD mineral bone disorder Plan: Repeat hemodialysis today with goal UF of about 3.5 L. Use midodrine to help with UF as blood pressure is low Possible thoracentesis. Check phosphorus
[2023-08-23 20:10] LABS: Glucose,Whole Blood 119 mg/dL (70-110)
[2023-08-24] MEDS: ACETAMINOPHEN TAB 325 MG TAB PO PRN (01:48)
[2023-08-24 06:11] LABS: Glucose,Whole Blood 99 mg/dL (70-110)
--- NOTE | 2023-08-24 10:30 | XR ---
EXAMINATION TYPE: XR chest 1V DATE OF EXAM: 08/24/2023 COMPARISON: 08/23/2023 INDICATION: Postright thoracentesis TECHNIQUE: Single frontal view of the chest is obtained. FINDINGS: The heart size is enlarged. The pulmonary vasculature is normal. Moderate right pleural effusion is present with slightly diminished comparison. Double-lumen catheter is present on the right. Pacemaker overlies the left chest. No pneumothorax is evident. IMPRESSION: 1. No pneumothorax postthoracentesis. Right-sided pleural effusion is somewhat diminished from compar kristi.
[2023-08-24 11:19] LABS: Total Protein 6.5 g/dL (6.3-8.2)
--- NOTE | 2023-08-24 11:30 | P.PN ---
Subjective Patient is seen for follow-up for end-stage renal disease. Status post 6.8 L of UF over the last couple of days. Scheduled for hemodialysis again today. Shortness of breath has improved. Overall volume status appears much improved. Objective - Vital Signs Vital signs: Vital Signs Temp 97.4 F L 08/24/23 07:58 Pulse 64 08/24/23 09:47 Resp 22 08/24/23 07:58 BP 113/73 08/24/23 07:58 Pulse Ox 96 08/24/23 09:33 FiO2 Intake & Output 08/23/23 08/24/23 08/24/23 18:59 06:59 18:59 Intake Total 1128 260 472 Output Total 3400 Balance -2272 260 472 Weight 110 kg 103 kg Intake: IV 30 20 10 Invasive Line 1 30 20 10 Oral 458 240 462 Hemodialysis 400 Other 240 Output: Hemodialysis 3400 Other: Voiding Method Urinal Urinal Urinal Diaper Diaper Diaper # Voids 1 1 # Bowel Movements 1 - Exam Patient is awake, comfortable, no acute distress Examination of the heart S1 and S2 Examination of the lungs bilateral breath sounds are heard Abdomen is soft obese Examination of lower extremity shows significant edema 3-4+ bilaterally. 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 End-stage renal disease on hemodialysis on a Saturday schedule 2. Severe volume overload. 3. Large right pleural effusion 4. 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 5. CKD mineral bone disorder Plan: Repeat hemodialysis on 08/26/2023 Use midodrine to help with UF as blood pressure is low Possible thoracentesis. Add PhosLo
[2023-08-24 11:32] LABS: Glucose,Whole Blood 126 mg/dL (70-110)
--- NOTE | 2023-08-24 11:40 | OP ---
OPERATIVE REPORT DATE OF SERVICE : PROCEDURE PERFORMED: Right-sided thoracentesis. PREOPERATIVE DIAGNOSIS: Large right pleural effusion. POSTOPERATIVE DIAGNOSIS: Large right pleural effusion. ANESTHESIA USED: 2 mL of 1% lidocaine. DESCRIPTION OF PROCEDURE: The patient was placed in a sitting upright position, the fluid was localized using ultrasound guidance at the bedside, and it correlated to the 8th intercostal space and tip of the scapula. The area was prepared in a sterile fashion. Drapes were applied, then the area was locally anesthetized with lidocaine. A needle was used. A 26-gauge needle advanced into the pleural space until the fluid was localized. Then, a small incision was made and standard thoracentesis catheter and needle were used, advanced into the pleural space and as the fluid was obtained, the catheter was advanced over the needle and the needle was pulled out of the pleural space. Freely flowing fluid was removed. Total 1150 mL of slightly serosanguineous fluid was removed from the right pleural space. The procedure was well tolerated. Chest x-ray postoperatively showed no complications. The fluid was sent for different diagnostic studies. MMODL / IJN: [id number] /
--- NOTE | 2023-08-24 12:04 | P.PN ---
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 Patient follows in the office with Dr. Abbasi. We have been asked to see the patient in consultation for congestive heart failure. Patient examined at the bedside in the emergency room. Patient was recently hospitalized in June 2023 and underwent right BKA. He was discharged to [facility] in [place]. Patient states he missed his hemodialysis session yesterday because he had an appointment that he could not miss so he decided to skip hemodialysis. The patient states he began to feel short of breath yesterday evening and was brought to the hospital for further evaluation. The patient un derwent hemodialysis this morning. He states his breathing has improved although he continues to be short of breath. He currently denies any chest pain or pressure. DIAGNOSTICS: - EKG reveals sinus mechanism with no signs of acute ischemia. Low voltage QRS. - Chest xray large right pleural effusion - Ultrasound of the chest reveals right chest wall soft tissue along the pleura with large pleural effusion. Small fluid pocket on the left. - Laboratory data: WBC 22.8. Hemoglobin 11.0. Platelet count 189. Sodium 132. Potassium 5.4. BUN 83. Creatinine 6.21. Troponin 0.035. proBNP 72,100. - Current home cardiac medications include amiodarone 200 mg daily, aspirin 81 mg daily, torsemide 40 mg daily, metoprolol tartrate 25 mg twice a day, midodrine 10 mg 3 times a day - Most recent echocardiogram obtained in June 2022 revealed ejection fraction less than 20%, severe pulmonary hypertension, moderate to severe MR, moderate TR - Cardiac catheterization history: February 2018 revealing minimal CAD August 23, 2023 Patient examined this morning at the bedside. Patient currently denies chest pain or pressure. He reports improvement in his shortness of breath. Patient underwent hemodialysis yesterday with removal of 3 L. He also underwent hemodialysis today with removal of 3 L. Telemetry reveals sinus mechanism with heart rate in the 70s. Blood pressure remains on the lower side with a systolic blood pressure in the 90s which is patient's baseline. August 24, 2023 Patient examined this morning at the bedside. Patient is somewhat lethargic at the time of examination. He denies chest pain or pressure. He reports shortness of breath. He is scheduled to undergo hemodialysis again today. Vital signs are stable. Echocardiogram completed revealing ejection fraction 15 to 20%, moderate mitral regurgitation, moderate tricuspid regurgitation, and moderate pulmonary hypertension PHYSICAL EXAM: VITAL SIGNS: Reviewed. GENERAL: Well-developed in no acute distress. HEENT: Head is normocephalic. Pupils are equal, round. Sclerae anicteric. Mucous membranes of the mouth are moist. Neck supple. + JVD. No thyromegaly LUNGS: Respirations even and unlabored. Lungs with significantly decreased breath sounds on the right and crackles to the left base HEART: Regular rate and rhythm. S1 and S2 heard. Systolic murmur noted. EXTREMITIES: Normal range of motion. No clubbing or cyanosis. Right AKA. Left lower extremity with 3+ edema and gauze dressing noted to calf. 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 No plans for thoracentesis at this time. Nephrology is following. Hemodialysis and diuretics per nephrology Continue additional cardiac medications Patient is apparently scheduled for generator change on 08/28/2023. If patient remains stable and his breathing improves, patient will undergo procedure. Further recommendations pending patient course Nurse practitioner note has been reviewed by physician. Signing provider agrees with the documented findings, assessment, and plan of care documented by WORM SORTER as a scribe. Objective - Vital Signs Vital signs: Vital Signs Temp 97.4 F L 08/24/23 07:58 Pulse 64 08/24/23 09:47 Resp 22 08/24/23 07:58 BP 113/73 08/24/23 07:58 Pulse Ox 96 08/24/23 09:33 FiO2 Intake & Output 08/23/23 08/24/23 08/24/23 18:59 06:59 18:59 Intake Total 1128 260 472 Output Total 3400 Balance -2272 260 472 Weight 110 kg 103 kg Intake: IV 30 20 10 Invasive Line 1 30 20 10 Oral 458 240 462 Hemodialysis 400 Other 240 Output: Hemodialysis 3400 Other: Voiding Method Urinal Urinal Urinal Diaper Diaper Diaper # Voids 1 1 # Bowel Movements 1 - Labs CBC & Chem 7: 08/23/23 08:04 08/23/23 08:04 Labs: Abnormal Lab Results - Last 24 Hours (Table) 08/23/23 08/23/23 08/24/23 Range/Units 16:27 20:09 11:31 POC Glucose (mg/dL) 136 H 119 H 126 H (70-110) mg/dL
[2023-08-24] MEDS: CALCIUM ACETATE 667 MG TAB PO SCH (12:22)
--- NOTE | 2023-08-24 14:18 | P.PN ---
Subjective Progress Note Date: 08/24/23 This is a pleasant 53-year-old male patient with a known history of asthma, neck and ongoing tobacco dependence, marijuana use, coronary artery disease, congestive heart failure, chronic obstructive pulmonary disease, diabetes mellitus, hyperlipidemia, hypertension, ischemic cardiomyopathy with previous AICD placement, nonhealing ulceration of the right heel with subsequent [id number] amputation on July 26, 2023, chronic kidney disease receiving hemodialysis Saturday, diabetes mellitus, obstructive sleep apnea with CPAP use. He missed his dialysis on Saturday due to having an important meeting to go to. He presented here late last night with worsening shortness of breath and dyspnea on exertion. He also had increased lower extremity edema. Chest x-ray revealed a large right pleural effusion. White count platelets 189. INR 1.4. Sodium 132. Potassium 5.4. Bicarb 23. BUN 83. Creatinine 6.21. Glucose 188. Pro BNP level 72,100. Troponin 0.035. Viral screen negative. Ultrasound of the right chest revealed a 10.6 cm pocket however there was lung tissue seen within the fluid. He is seen today in consultation in the emergency department. He is currently sitting up on the stretcher. Awake and alert in no acute distress. Only maintaining O2 saturation in the 90s on 3 L/min per nasal cannula. Has been afebrile. Hemodynamically stable Patient was reevaluated today on 08/23/2023, he is resting in bed, receiving hemodialysis, chest x-ray this morning continues to show good sized right-sided pleural effusion however the ultrasound showed lung tissue which would likely interfere with the thoracentesis hence I am recommending for now medical therapy /hemodialysis and ultrafiltration. If no improvement could consider repeat ultrasound and proceed with right-sided thoracentesis. Patient does not seem to be in distress, he is actually on 3 L nasal cannula, and his O2 saturation is in the 90s. Blood pressure is stable. CBC is relatively normal basic metabolic profile is normal BUN is 62 creatinine 5.09 The patient was seen today August 24, 2023 in follow-up on the selective care unit. He is currently sitting up in bed. Awake and alert in no acute distress. He is maintaining O2 saturations in the 90s on 2 L/min per nasal cannula. Bed side ultrasound did not reveal any significant lung tissue within the pleural effusion on the right. A right-sided thoracentesis was performed today with 1,150 mLs of fluid removed. Sent for analysis and cytology. Plan is for hemodialysis again today. He is status post 6.8 L of ultrafiltration over the past several days. Glucose 126. He remains on DuoNeb inhalations. Objective - Vital Signs Vital signs: Vital Signs Temp 97.5 F L 08/24/23 12:14 Pulse 73 08/24/23 13:11 Resp 22 08/24/23 12:14 BP 111/71 08/24/23 12:14 Pulse Ox 97 08/24/23 12:14 FiO2 Intake & Output 08/23/23 08/24/23 08/24/23 18:59 06:59 18:59 Intake Total 1128 260 694 Output Total 3400 Balance -2272 260 694 Weight 110 kg 103 kg Intake: IV 30 20 10 Invasive Line 1 30 20 10 Oral 458 240 684 Hemodialysis 400 Other 240 Output: Hemodialysis 3400 Other: Voiding Method Urinal Urinal Urinal Diaper Diaper Diaper # Voids 1 1 # Bowel Movements 1 - Exam GENERAL EXAM: Alert, 53-year-old male, on 2 L nasal cannula, comfortable in no apparent distress. HEAD: Normocephalic. EYES: Normal reaction of pupils, equal size. NOSE: Clear with pink turbinates. THROAT: No erythema or exudates. NECK: No masses, no JVD. CHEST: No chest wall deformity. LUNGS: Equal air entry however diminished in the right lung base, crackles CVS: S1 and S2 normal with no audible murmur, regular rhythm. ABDOMEN: No hepatosplenomegaly, normal bowel sounds, no guarding or rigidity. SKIN: No rashes CENTRAL NERVOUS SYSTEM: Alert oriented x 3 no gross deficit EXTREMITIES: Right above-knee amputation noted - Labs CBC & Chem 7: 08/23/23 08:04 08/23/23 08:04 Labs: Abnormal Lab Results - Last 24 Hours (Table) 08/23/23 08/23/23 08/24/23 Range/Units 16:27 20:09 11:31 POC Glucose (mg/dL) 136 H 119 H 126 H (70-110) mg/dL Assessment and Plan Assessment: Acute on chronic systolic congestive heart failure secondary to fluid volume overload from missed hemodialysis Right pleural effusion secondary to above, status post thoracentesis with 1150 mL of fluid removed 08/24/2023. Fluid analysis, cytology pending Ischemic cardiomyopathy, EF less than 20% status post AICD Chronic kidney disease stage III from diabetic nephropathy and nephrosclerosis, to receive dialysis Saturday's Acute kidney injury secondary to recently missed hemodialysis session, worsening renal function Recent S/p right [id number] amputation on 07/26/2023 from infected right heel diabetic ulcer with prior history of debridement. Culture showing MRSA. Nonhealing. Lower extremity chronic venous insufficiency COPD, currently stable History of chronic tobacco dependence History of marijuana use Diabetes mellitus type 2 chronically on insulin, uncontrolled with hypoglycemia Hyperlipidemia Moderate to severe MR/moderate TR and severe pulmonary hypertension Chronic low back pain Essential hypertension Obstructive sleep apnea sometimes uses CPAP machine Diabetic peripheral neuropathy Plan: The patient was seen and evaluated Chest x-ray, labs and medications reviewed Right-sided thoracentesis performed with 1150 MLS removed Scheduled for hemodialysis today Continue bronchodilators Titrate the FiO2 as tolerated We will continue to follow I have personally seen and examined the patient, performed the documentation and the assessment and plan as written. Number of minutes spent on the visit: 10.
--- NOTE | 2023-08-24 14:51 | P.PN ---
Progress Note - Text Progress Note Date: 08/24/23 Chief Complaint: Short of breath This is a 53-year-old patient, follows with Dr. Rodríguez. Chronic stable medical condition include CHF EF less than 20%, COPD, diabetes mellitus type 2, hypertension, hyperlipidemia, obstructive sleep apnea, anxiety, AICD, lower extremity venous insufficiency. Patient had lower extremity wounds for which she followed with Dr. Kaur from vascular and ID Dr. Abbasi. Multiple admissions. Patient finally agreed to amputation for the right foot wound that was not healing.. Finally on July 26 patient underwent right above-knee amputation by Dr. Kaur from vascular. Patient was discharged to a satellite medical [facility] facility. Patient had been noncompliant with hemodialysis prior to that admission. Patient presented to our ER after being progressively increasing shortness of breath. He missed his dialysis yesterday. He became increasingly short of breath. Increasing edema. Some cough. Denies any fever and chills. Tired. Nephrology was called. Patient getting 3 L removed with dialysis today. Patient currently a resident of [facility]. Patient received midodrine today before started dialysis August 23: Tolerated breakfast well. 3 L of fluid being removed today. Patient is due for his generator change on August 28. Cardiology consulted and informed. Has edema. August 24: Oral intake good. Diet. Dialysis per nephrology. Right-sided thoracentesis 1156 cc removed. By pulmonary Active Medications Acetaminophen (Acetaminophen Tab 325 Mg Tab) 650 mg PO Q6HR PRN PRN Reason: Mild Pain or Fever > 100.5 Last Admin: 08/24/23 12:22 Dose: 650 mg Hydrocodone Bitart/Acetaminophen (Hydrocodone/Apap 5-325mg 1 Each Tab) 1 each PO Q8HR [facility] Last Admin: 08/24/23 08:11 Dose: 1 each Albuterol Sulfate (Albuterol Hfa Inhaler) 2 puff INHALATION RT-QID PRN PRN Reason: Shortness Of Breath Albuterol/Ipratropium (Ipratropium-Albuterol 3 Ml Neb) 3 ml INHALATION RT-Q2H PRN PRN Reason: Shortness Of Breath Or Wheezing Albuterol/Ipratropium (Ipratropium-Albuterol 3 Ml Neb) 3 ml INHALATION RT-QID [facility] Last Admin: 08/24/23 13:00 Dose: 3 ml Alprazolam (Alprazolam 0.25 Mg Tab) 0.5 mg PO Q8H PRN PRN Reason: Anxiety Last Admin: 08/24/23 01:48 Dose: 0.5 mg Amiodarone HCl (Amiodarone 200 Mg Tab) 200 mg PO DAILY [facility] Last Admin: 08/24/23 08:10 Dose: 200 mg Ascorbic Acid (Ascorbic Acid 500 Mg Tab) 1,000 mg PO DAILY [facility] Last Admin: 08/24/23 08:10 Dose: 1,000 mg Aspirin (Aspirin 81 Mg) 81 mg PO DAILY [facility] Last Admin: 08/24/23 08:11 Dose: 81 mg Calcium Acetate (Calcium Acetate 667 Mg Tab) 667 mg PO TID-W/MEALS [facility] Last Admin: 08/24/23 12:22 Dose: 667 mg Calcium Carbonate/Glycine (Calcium Carbonate 500 Mg Chewable) 1,000 mg PO Q4HR PRN PRN Reason: Dyspepsia Dextrose/Water (Dextrose 50% Syringe 50 Ml) 25 ml IVP PER PROTOCOL PRN; Protocol PRN Reason: Hypoglycemia Dextrose/Water (Dextrose 50% Syringe 50 Ml) 50 ml IVP PER PROTOCOL PRN; Protocol PRN Reason: Hypoglycemia Duloxetine HCl (Duloxetine Hcl 30 Mg Capsule.Dr) 30 mg PO DAILY [facility] Last Admin: 08/24/23 08:11 Dose: 30 mg Famotidine (Famotidine 20 Mg Tab) 20 mg PO DAILY [facility] Last Admin: 08/24/23 08:11 Dose: 20 mg Fluphenazine HCl (Fluphenazine 1 Mg Tab) 3 mg PO HS [facility] Last Admin: 08/23/23 20:51 Dose: 3 mg Folic Acid (Folic Acid 1 Mg Tab) 1 mg PO DAILY [facility] Last Admin: 08/24/23 08:10 Dose: 1 mg Insulin Aspart (Insulin Aspart (Novolog) 100 Unit/Ml Vial) 0 unit SQ ACHS [facility]; Protocol Last Admin: 08/24/23 12:18 Dose: Not Given Insulin Detemir (Insulin Detemir (Levemir) 100 Unit/Ml Syr) 18 unit SQ HS [facility] Last Admin: 08/23/23 20:51 Dose: 18 unit Lactulose (Lactulose 20 Gm/30 Ml Cup) 20 gm PO DAILY PRN PRN Reason: Constipation Melatonin (Melatonin 3 Mg Tablet) 3 mg PO HS PRN PRN Reason: Insomnia Metoprolol Tartrate (Metoprolol Tartrate 25 Mg Tab) 25 mg PO BID [facility] Last Admin: 08/24/23 08:11 Dose: 25 mg Midodrine (Midodrine 5 Mg Tab) 10 mg PO AC-TID [facility] Last Admin: 08/24/23 12:22 Dose: 10 mg Multivitamins (Multivitamins, Thera 1 Each Tab) 1 each PO DAILY [facility] Last Admin: 08/24/23 08:11 Dose: 1 each Naloxone HCl (Naloxone 0.4 Mg/Ml 1 Ml Vial) 0.2 mg IV Q2M PRN PRN Reason: Opioid Reversal Ondansetron HCl (Ondansetron 4 Mg/2 Ml Vial) 4 mg IVP Q8HR PRN PRN Reason: Nausea And Vomiting Trazodone HCl (Trazodone Hcl 50 Mg Tab) 50 mg PO HS PRN PRN Reason: Agitation Social history: Lives with his 20-year-old son. Disabled. 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 Smoking 2 packs a day for most of his life . Stop drinking heavy alcohol about 20 years ago. Has done marijuana. Physical examination: VITAL SIGNS: 97.5, 73, 22, 111/71, 97% on 2 L GENERAL: Reclining in bed, tired EYES: Pupils equal. Conjunctiva normal. HEENT: External appearance of nose and ears normal, oral cavity grossly normal. NECK: JVD raised; masses not palpable. HEART: First and second heart sounds are normal; significant edema LUNGS: Respiratory rate increased; diminished breath sounds ABDOMEN: Soft, nontender, liver spleen not palpable, no masses palpable. PSYCH: Tired, able to answer questions. NEUROLOGICAL: Cranial nerves grossly intact. No facial asymmetry DERMATOLOGICAL: Right above-knee amputation. The stump is gross stitches. Left lower extremity wound INVESTIGATIONS, reviewed in the clinical context: August 23: White count 13.9 hemoglobin 10.9 platelets 194 potassium 5.2 BUN 62 creatinine 5.09 August 21, 2023: White count 22.8 hemoglobin 11 platelets were 89 sodium 132 potassium 5.4 BUN 83 creatinine 6.21 Troponin I 0.035. proBNP [id number] Influenza type A, type B, RSV, COVID-19: Not detected EKG tracing personally reviewed by me-normal sinus rhythm. Chest x-ray film personally reviewed by me-large right pleural effusion Chest ultrasound: Large right pleural effusion Assessment and plan: -Acute on chronic congestive heart failure nonischemic cardiomyopathy systolic dysfunction EF less than 20%: Worsening from missed hemodialysis.: Slow to r espond Hemodialysis done yesterday and today. Both days 3 L being removed. AICD. Fluid restriction 1500 mL. Follow-up with cardiology and nephrology -Acute uremic and hypoxic encephalopathy: Some improvement -Acute hypoxic respiratory failure from fluid overload/CHF.: Better 2 L nasal cannula -Right above-knee amputation by Dr. Yared Lugo on June 2024 Follow-up with Dr. Kaur -Acute COPD exacerbation in a previous smoker Ventolin. DuoNeb-4 times daily. - AICD -Diabetes mellitus type 2 chronically on insulin, uncontrolled with [id number] Levemir 18 units subcu Diabetic diet. Accu-Cheks and sliding scale -Iron deficiency anemia aranesp -Hyperlipidemia Lipitor -End-stage kidney disease on hemodialysis Right IJ dialysis catheter -Hyponatremia-mild Fluid restriction -Chronic low back pain. Patient's had pain on and off for about 10 years. Has had prior surgery. Does not remember who did the surgery. When necessary pain medication -Hypotension. Midodrine -Obstructive sleep apnea sometimes uses CPAP machine -Diabetic peripheral neuropathy -Anxiety, depression Trazodone, Cymbalta -DJD Tylenol when necessary -AICD Due for generator change on August 28. Cardiology aware. -Lower extremity chronic venous insufficiency, with left lower extremity wounds Dr. Kaur consulted -Full code Discussed with patient. Continue current treatment plan. Past Medical History Past Medical History: Asthma, Coronary Artery Disease (CAD), Chest Pain / Angina, Heart Failure, COPD, Diabetes Mellitus, GERD/Reflux, Hyperlipidemia, Hypertension, Myocardial Infarction ([place]), Pneumonia, Sleep Apnea/CPAP/BIPAP, Supraventricular Tachycardia (SVT) Additional Past Medical History / Comment(s): Ischemic cardiomyopathy, chronic CHF, SVT, IDDM type II, KAMINI with CPAP occasionally used, chronic cervical/back pain, DJD, diabetic foot wounds x 4 months. Dialysis Last Myocardial Infarction Date:: 12/11/17 History of Any Multi-Drug Resistant Organisms: MRSA Date of last positivie culture/infection: 06/15/23 MDRO Source:: Right Foot Past Surgical History: Adenoidectomy, AICD, Back Surgery, Cholecystectomy, EPS, Heart Catheterization, Pacemaker, Tonsillectomy Additional Past Surgical History / Comment(s): 12/10/17 cardiac cath, previous cardiac cath, 09/02/14 AICD/pacer, EGD/colonoscopy, low back surgery with fusion. Past Anesthesia/Blood Transfusion Reactions: Motion Sickness Additional Past Anesthesia/Blood Transfusion Reaction / Comment(s): Pt states he received blood with back surgery without reaction. Type of Cardiac Device: Permanent Pacemaker, AICD Device Placement Date:: 09-02-14 Past Psychological History: ADD/ADHD, Anxiety Smoking Status: Current every day smoker Past Alcohol Use History: Occasional Past Drug Use History: Marijuana
[2023-08-24 16:15] LABS: Glucose,Whole Blood 95 mg/dL (70-110)
[2023-08-24 20:22] LABS: Glucose,Whole Blood 147 mg/dL (70-110)
[2023-08-24 23:32] LABS: Appearance,BF Bloody (Clear)
[2023-08-25] MEDS: IPRATROPIUM-ALBUTEROL 3 ML NEB INHALATION PRN (03:36)
[2023-08-25 06:05] LABS: Glucose,Whole Blood 103 mg/dL (70-110)
[2023-08-25 06:57] LABS: Glucose,Whole Blood 82 mg/dL (70-110)
[2023-08-25 06:58] LABS: Glucose, BF Source Thoracentesis Fluid; Glucose, Body Fluid 87 mg/dL; LDH, Body Fluid Source Thoracentesis Fluid; T. Protein, Body Fluid Source Thoracentesis Fluid; Total Protein, Body Fluid 2890 mg/dL
--- NOTE | 2023-08-25 09:15 | P.PN ---
Progress Note - Text Progress Note Date: 08/25/23 Chief Complaint: Short of breath This is a 53-year-old patient, follows with Dr. Rodríguez. Chronic stable medical condition include CHF EF less than 20%, COPD, diabetes mellitus type 2, hypertension, hyperlipidemia, obstructive sleep apnea, anxiety, AICD, lower extremity venous insufficiency. Patient had lower extremity wounds for which she followed with Dr. Kaur from vascular and ID Dr. Abbasi. Multiple admissions. Patient finally agreed to amputation for the right foot wound that was not healing.. Finally on July 26 patient underwent right above-knee amputation by Dr. Kaur from vascular. Patient was discharged to a satellite medical care facility. Patient had been noncompliant with hemodialysis prior to that admission. Patient presented to our ER after being progressively increasing shortness of breath. He missed his dialysis yesterday. He became increasingly short of breath. Increasing edema. Some cough. Denies any fever and chills. Tired. Nephrology was called. Patient getting 3 L removed with dialysis today. Patient currently a resident of [facility]. Patient received midodrine today before started dialysis August 23: Tolerated breakfast well. 3 L of fluid being removed today. Patient is due for his generator change on August 28. Cardiology consulted and informed. Has edema. August 24: Oral intake good. Diet. Dialysis per nephrology. Right-sided thoracentesis 1156 cc removed. By pulmonary August 24: Tired. Congested chest. Short of breath. Pulse ox 87% on room air. Active Medications Acetaminophen (Acetaminophen Tab 325 Mg Tab) 650 mg PO Q6HR PRN PRN Reason: Mild Pain or Fever > 100.5 Last Admin: 08/25/23 03:18 Dose: 650 mg Hydrocodone Bitart/Acetaminophen (Hydrocodone/Apap 5-325mg 1 Each Tab) 1 each PO Q8HR [facility] Last Admin: 08/25/23 00:34 Dose: 1 each Albuterol Sulfate (Albuterol Hfa Inhaler) 2 puff INHALATION RT-QID PRN PRN Reason: Shortness Of Breath Albuterol/Ipratropium (Ipratropium-Albuterol 3 Ml Neb) 3 ml INHALATION RT-Q2H PRN PRN Reason: Shortness Of Breath Or Wheezing Last Admin: 08/25/23 03:36 Dose: 3 ml Albuterol/Ipratropium (Ipratropium-Albuterol 3 Ml Neb) 3 ml INHALATION RT-QID [facility] Last Admin: 08/25/23 08:55 Dose: 3 ml Alprazolam (Alprazolam 0.25 Mg Tab) 0.5 mg PO Q8H PRN PRN Reason: Anxiety Last Admin: 08/25/23 03:18 Dose: 0.5 mg Amiodarone HCl (Amiodarone 200 Mg Tab) 200 mg PO DAILY [facility] Last Admin: 08/24/23 08:10 Dose: 200 mg Ascorbic Acid (Ascorbic Acid 500 Mg Tab) 1,000 mg PO DAILY [facility] Last Admin: 08/24/23 08:10 Dose: 1,000 mg Aspirin (Aspirin 81 Mg) 81 mg PO DAILY [facility] Last Admin: 08/24/23 08:11 Dose: 81 mg Calcium Acetate (Calcium Acetate 667 Mg Tab) 667 mg PO TID-W/MEALS [facility] Last Admin: 08/25/23 06:48 Dose: 667 mg Calcium Carbonate/Glycine (Calcium Carbonate 500 Mg Chewable) 1,000 mg PO Q4HR PRN PRN Reason: Dyspepsia Dextrose/Water (Dextrose 50% Syringe 50 Ml) 25 ml IVP PER PROTOCOL PRN; Protocol PRN Reason: Hypoglycemia Dextrose/Water (Dextrose 50% Syringe 50 Ml) 50 ml IVP PER PROTOCOL PRN; Protocol PRN Reason: Hypoglycemia Duloxetine HCl (Duloxetine Hcl 30 Mg Capsule.Dr) 30 mg PO DAILY [facility] Last Admin: 08/24/23 08:11 Dose: 30 mg Famotidine (Famotidine 20 Mg Tab) 20 mg PO DAILY [facility] Last Admin: 08/24/23 08:11 Dose: 20 mg Fluphenazine HCl (Fluphenazine 1 Mg Tab) 3 mg PO [facility] Last Admin: 08/24/23 22:06 Dose: 3 mg Folic Acid (Folic Acid 1 Mg Tab) 1 mg PO DAILY [facility] Last Admin: 08/24/23 08:10 Dose: 1 mg Insulin Aspart (Insulin Aspart (Novolog) 100 Unit/Ml Vial) 0 unit SQ [facility]; Protocol Last Admin: 08/25/23 06:06 Dose: Not Given Insulin Detemir (Insulin Detemir (Levemir) 100 Unit/Ml Syr) 18 unit SQ [facility] Last Admin: 08/24/23 22:06 Dose: 18 unit Lactulose (Lactulose 20 Gm/30 Ml Cup) 20 gm PO DAILY PRN PRN Reason: Constipation Melatonin (Melatonin 3 Mg Tablet) 3 mg PO HS PRN PRN Reason: Insomnia Metoprolol Tartrate (Metoprolol Tartrate 25 Mg Tab) 25 mg PO BID [facility] Last Admin: 08/24/23 22:06 Dose: 25 mg Midodrine (Midodrine 5 Mg Tab) 10 mg PO AC-TID [facility] Last Admin: 08/25/23 06:48 Dose: 10 mg Multivitamins (Multivitamins, Thera 1 Each Tab) 1 each PO DAILY [facility] Last Admin: 08/24/23 08:11 Dose: 1 each Naloxone HCl (Naloxone 0.4 Mg/Ml 1 Ml Vial) 0.2 mg IV Q2M PRN PRN Reason: Opioid Reversal Ondansetron HCl (Ondansetron 4 Mg/2 Ml Vial) 4 mg IVP Q8HR PRN PRN Reason: Nausea And Vomiting Trazodone HCl (Trazodone Hcl 50 Mg Tab) 50 mg PO HS PRN PRN Reason: Agitation Social history: Lives with his 20-year-old son. Disabled. 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 Smoking 2 packs a day for most of his life . Stop drinking heavy alcohol about 20 years ago. Has done marijuana. Physical examination: VITAL SIGNS: 97.7, 67, 28, 98 x 64, 91% on 3 L GENERAL: Reclining in bed, lethargic. Congested chest EYES: Pupils equal. Conjunctiva normal. HEENT: External appearance of nose and ears normal, oral cavity grossly normal. NECK: JVD raised; masses not palpable. HEART: First and second heart sounds are normal; significant edema LUNGS: Respiratory rate increased; diminished breath sounds ABDOMEN: Soft, nontender, liver spleen not palpable, no masses palpable. PSYCH: Tired, able to answer questions. NEUROLOGICAL: Cranial nerves grossly intact. No facial asymmetry DERMATOLOGICAL: Right above-knee amputation. The stump is gross stitches. Left lower extremity wound INVESTIGATIONS, reviewed in the clinical context: August 23: White count 13.9 hemoglobin 10.9 platelets 194 potassium 5.2 BUN 62 creatinine 5.09 August 21, 2023: White count 22.8 hemoglobin 11 platelets were 89 sodium 132 potassium 5.4 BUN 83 creatinine 6.21 Troponin I 0.035. proBNP [id number] Influenza type A, type B, RSV, COVID-19: Not detected EKG tracing personally reviewed by me-normal sinus rhythm. Chest x-ray film personally reviewed by me-large right pleural effusion Chest ultrasound: Large right pleural effusion Assessment and plan: -Acute on chronic congestive heart failure nonischemic cardiomyopathy systolic dysfunction EF less than 20%: Worsening from missed hemodialysis.: Slow to respond Hemodialysis done yesterday and today. Both days 3 L being removed. AICD. Fluid restriction 1500 mL. Follow-up with cardiology and nephrology -Acute uremic and hypoxic encephalopathy: Slow improvement -Acute hypoxic respiratory failure from fluid overload/CHF.: Slow to respond 2 L nasal cannula -Right above-knee amputation by Dr. Yared Lugo on June 2024 Follow-up with Dr. Kaur -Acute COPD exacerbation in a previous smoker Ventolin. DuoNeb-4 times daily. - AICD -Diabetes mellitus type 2 chronically on insulin, uncontrolled with [id number] Levemir 18 units subcu Diabetic diet. Accu-Cheks and sliding scale -Iron deficiency anemia aranesp -Hyperlipidemia Lipitor -End-stage kidney disease on hemodialysis Right IJ dialysis catheter -Hyponatremia-mild Fluid restriction -Chronic low back pain. Patient's had pain on and off for about 10 years. Has had prior surgery. Does not remember who did the surgery. When necessary pain medication -Hypotension. Midodrine -Obstructive sleep apnea sometimes uses CPAP machine -Diabetic peripheral neuropathy -Anxiety, depression Trazodone, Cymbalta -DJD Tylenol when necessary -AICD Due for generator change on August 28. Cardiology aware. -Lower extremity chronic venous insufficiency, with left lower extremity wounds Dr. Kaur consulted -Full code Continue oxygen. Will need more dialysis. Encourage oral intake. Past Medical History Past Medical History: Asthma, Coronary Artery Disease (CAD), Chest Pain / Angina, Heart Failure, COPD, Diabetes Mellitus, GERD/Reflux, Hyperlipidemia, Hypertension, Myocardial Infarction ([place]), Pneumonia, Sleep Apnea/CPAP/BIPAP, Supraventricular Tachycardia (SVT) Additional Past Medical History / Comment(s): Ischemic cardiomyopathy, chronic CHF, SVT, IDDM type II, KAMINI with CPAP occasionally used, chronic cervical/back pain, DJD, diabetic foot wounds x 4 months. Dialysis Last Myocardial Infarction Date:: 12/11/17 History of Any Multi-Drug Resistant Organisms: MRSA Date of last positivie culture/infection: 06/15/23 MDRO Source:: Right Foot Past Surgical History: Adenoidectomy, AICD, Back Surgery, Cholecystectomy, EPS, Heart Catheterization, Pacemaker, Tonsillectomy Additional Past Surgical History / Comment(s): 12/10/17 cardiac cath, previous cardiac cath, 09/02/14 AICD/pacer, EGD/colonoscopy, low back surgery with fusion. Past Anesthesia/Blood Transfusion Reactions: Motion Sickness Additional Past Anesthesia/Blood Transfusion Reaction / Comment(s): Pt states he received blood with back surgery without reaction. Type of Cardiac Device: Permanent Pacemaker, AICD Device Placement Date:: 09-02-14 Past Psychological History: ADD/ADHD, Anxiety Smoking Status: Current every day smoker Past Alcohol Use History: Occasional Past Drug Use History: Marijuana
[2023-08-25 09:32] LABS: Anisocytosis Slight; Basophils # (A) 0.1 k/uL (0-0.2); Basophils % (A) 1 %; Eosinophils # (A) 0.2 k/uL (0-0.7); Eosinophils % (A) 2 %; HCT 36.7 % (39.0-53.0); Hypochromasia Marked; Lymphocytes # (A) 0.8 k/uL (1.0-4.8); Lymphocytes % (A) 7 %; MCH 28.5 pg (25.0-35.0); MCHC 29.9 g/dL (31.0-37.0); MCV 95.5 fL (80.0-100.0); Mean Platelet Volume 7.4; Monocytes # (A) 1.4 k/uL (0-1.0); Monocytes % (A) 13 %; Neutrophils # (A) 8.5 k/uL (1.3-7.7); Neutrophils % (A) 75 %; Platelet Count 147 k/uL (150-450); RBC 3.85 m/uL (4.30-5.90); RDW 16.7 % (11.5-15.5); WBC 11.3 k/uL (3.8-10.6)
[2023-08-25 09:49] LABS: African American GFR (CKD) 22 (>60 ml/min/1.73 sqM); Anion Gap 9 mmol/L; Blood Urea Nitrogen 40 mg/dL (9-20); Calcium 8.7 mg/dL (8.4-10.2); Carbon Dioxide 25 mmol/L (22-30); Chloride 101 mmol/L (98-107); Glucose 72 mg/dL (74-99); Non-African American GFR(CKD) 19 (>60 ml/min/1.73 sqM); Sodium 135 mmol/L (137-145)
[2023-08-25 09:55] LABS: Potassium 4.6 mmol/L (3.5-5.1)
--- NOTE | 2023-08-25 10:05 | P.PN ---
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 Patient follows in the office with Dr. Abbasi. We have been asked to see the patient in consultation for congestive heart failure. Patient examined at the bedside in the emergency room. Patient was recently hospitalized in June 2023 and underwent right BKA. He was discharged to [facility] in [place]. Patient states he missed his hemodialysis session yesterday because he had an appointment that he could not miss so he decided to skip hemodialysis. The patient states he began to feel short of breath yesterday evening and was brought to the hospital for further evaluation. The patient un derwent hemodialysis this morning. He states his breathing has improved although he continues to be short of breath. He currently denies any chest pain or pressure. DIAGNOSTICS: - EKG reveals sinus mechanism with no signs of acute ischemia. Low voltage QRS. - Chest xray large right pleural effusion - Ultrasound of the chest reveals right chest wall soft tissue along the pleura with large pleural effusion. Small fluid pocket on the left. - Laboratory data: WBC 22.8. Hemoglobin 11.0. Platelet count 189. Sodium 132. Potassium 5.4. BUN 83. Creatinine 6.21. Troponin 0.035. proBNP 72,100. - Current home cardiac medications include amiodarone 200 mg daily, aspirin 81 mg daily, torsemide 40 mg daily, metoprolol tartrate 25 mg twice a day, midodrine 10 mg 3 times a day - Most recent echocardiogram obtained in June 2022 revealed ejection fraction less than 20%, severe pulmonary hypertension, moderate to severe MR, moderate TR - Cardiac catheterization history: February 2018 revealing minimal CAD August 23, 2023 Patient examined this morning at the bedside. Patient currently denies chest pain or pressure. He reports improvement in his shortness of breath. Patient underwent hemodialysis yesterday with removal of 3 L. He also underwent hemodialysis today with removal of 3 L. Telemetry reveals sinus mechanism with heart rate in the 70s. Blood pressure remains on the lower side with a systolic blood pressure in the 90s which is patient's baseline. August 24, 2023 Patient examined this morning at the bedside. Patient is somewhat lethargic at the time of examination. He denies chest pain or pressure. He reports shortness of breath. He is scheduled to undergo hemodialysis again today. Vital signs are stable. Echocardiogram completed revealing ejection fraction 15 to 20%, moderate mitral regurgitation, moderate tricuspid regurgitation, and moderate pulmonary hypertension August 25, 2023 Patient examined this morning at the bedside. Patient denies chest pain or pressure. He underwent hemodialysis yesterday. However, he remains dyspneic at the time of examination and is complaining of shortness of breath. He continues to have significant edema of his left leg, right stump, and abdomen. Blood pressure stable. Most recent blood pressure 98/64. PHYSICAL EXAM: VITAL SIGNS: Reviewed. GENERAL: Well-developed in no acute distress. HEENT: Head is normocephalic. Pupils are equal, round. Sclerae anicteric. Mucous membranes of the mouth are moist. Neck supple. + JVD. No thyromegaly LUNGS: Respirations even and unlabored. Lungs with significantly decreased breath sounds on the right and crackles to the left base HEART: Regular rate and rhythm. S1 and S2 heard. Systolic murmur noted. EXTREMITIES: Normal range of motion. No clubbing or cyanosis. Right AKA. Left lower extremity with 3+ edema and gauze dressing noted to calf. 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 No plans for thoracentesis at this time. Nephrology is following. Hemodialysis and diuretics per nephrology. Continue additional cardiac medications Patient is apparently scheduled for generator change on 08/28/2023. If patient remains stable and his breathing improves, patient will undergo procedure. Further recommendations pending patient course Nurse practitioner note has been reviewed by physician. Signing provider agrees with the documented findings, assessment, and plan of care documented by [employer] as a scribe. Objective - Vital Signs Vital signs: Vital Signs Temp 97.7 F 08/25/23 07:46 Pulse 66 08/25/23 09:15 Resp 28 H 08/25/23 07:46 BP 98/64 08/25/23 07:46 Pulse Ox 94 L 08/25/23 08:57 FiO2 Intake & Output 08/24/23 08/25/23 08/25/23 18:59 06:59 18:59 Intake Total 1334 310 10 Output Total 3400 Balance -2066 310 10 Weight 118 kg Intake: IV 10 10 10 Invasive Line 1 10 10 10 Oral 924 300 Hemodialysis 400 Output: Hemodialysis 3400 Other: Voiding Method Urinal Urinal Diaper Diaper # Voids 1 # Bowel Movements 1 - Labs CBC & Chem 7: 08/25/23 09:01 08/25/23 09:01 Labs: Abnormal Lab Results - Last 24 Hours (Table) 08/24/23 08/24/23 08/24/23 Range/Units 10:00 11:31 20:20 WBC (3.8-10.6) k/uL RBC (4.30-5.90) m/uL Hgb (13.0-17.5) gm/dL Hct (39.0-53.0) % MCHC (31.0-37.0) g/dL RDW (11.5-15.5) % Plt Count (150-450) k/uL Neutrophils # (1.3-7.7) k/uL Lymphocytes # (1.0-4.8) k/uL Monocytes # (0-1.0) k/uL Sodium (137-145) mmol/L BUN (9-20) mg/dL Creatinine (0.66-1.25) mg/dL Glucose (74-99) mg/dL POC Glucose (mg/dL) 126 H 147 H (70-110) mg/dL Fluid Appearance Bloody A (Clear) 08/25/23 08/25/23 Range/Units 09:01 09:01 WBC 11.3 H (3.8-10.6) k/uL RBC 3.85 L (4.30-5.90) m/uL Hgb 11.0 L (13.0-17.5) gm/dL Hct 36.7 L (39.0-53.0) % MCHC 29.9 L (31.0-37.0) g/dL RDW 16.7 H (11.5-15.5) % Plt Count 147 L (150-450) k/uL Neutrophils # 8.5 H (1.3-7.7) k/uL Lymphocytes # 0.8 L (1.0-4.8) k/uL Monocytes # 1.4 H (0-1.0) k/uL Sodium 135 L (137-145) mmol/L BUN 40 H (9-20) mg/dL Creatinine 3.46 H (0.66-1.25) mg/dL Glucose 72 L (74-99) mg/dL POC Glucose (mg/dL) (70-110) mg/dL Fluid Appearance (Clear) Microbiology - Last 24 Hours (Table) 08/24/23 10:00 Gram Stain - Preliminary Pleural Fluid
--- NOTE | 2023-08-25 11:15 | P.PN ---
Subjective Patient is seen for follow-up for end-stage renal disease. Status post 10.4 L of UF over the last 3 days. Patient was noted to be quite short of breath today. O2 requirements have increased. Patient will be dialyzed again today. Objective - Vital Signs Vital signs: Vital Signs Temp 97.7 F 08/25/23 07:46 Pulse 66 08/25/23 09:15 Resp 28 H 08/25/23 07:46 BP 98/64 08/25/23 07:46 Pulse Ox 94 L 08/25/23 08:57 FiO2 Intake & Output 08/24/23 08/25/23 08/25/23 18:59 06:59 18:59 Intake Total 1334 310 10 Output Total 3400 Balance -2066 310 10 Weight 118 kg Intake: IV 10 10 10 Invasive Line 1 10 10 10 Oral 924 300 Hemodialysis 400 Output: Hemodialysis 3400 Other: Voiding Method Urinal Urinal Diaper Diaper # Voids 1 # Bowel Movements 1 - Exam Patient is awake, short of breath Examination of the heart S1 and S2 Examination of the lungs bilateral breath sounds are heard with basal crackles Abdomen is soft obese Examination of lower extremity shows significant edema 3-4+ bilaterally. Right AKA [employer] exam grossly intact - Labs CBC & Chem 7: 08/25/23 09:01 08/25/23 09:01 Labs: Abnormal Lab Results - Last 24 Hours (Table) 08/24/23 08/24/23 08/24/23 Range/Units 10:00 11:31 20:20 WBC (3.8-10.6) k/uL RBC (4.30-5.90) m/uL Hgb (13.0-17.5) gm/dL Hct (39.0-53.0) % MCHC (31.0-37.0) g/dL RDW (11.5-15.5) % Plt Count (150-450) k/uL Neutrophils # (1.3-7.7) k/uL Lymphocytes # (1.0-4.8) k/uL Monocytes # (0-1.0) k/uL Sodium (137-145) mmol/L BUN (9-20) mg/dL Creatinine (0.66-1.25) mg/dL Glucose (74-99) mg/dL POC Glucose (mg/dL) 126 H 147 H (70-110) mg/dL Fluid Appearance Bloody A (Clear) 08/25/23 08/25/23 Range/Units 09:01 09:01 WBC 11.3 H (3.8-10.6) k/uL RBC 3.85 L (4.30-5.90) m/uL Hgb 11.0 L (13.0-17.5) gm/dL Hct 36.7 L (39.0-53.0) % MCHC 29.9 L (31.0-37.0) g/dL RDW 16.7 H (11.5-15.5) % Plt Count 147 L (150-450) k/uL Neutrophils # 8.5 H (1.3-7.7) k/uL Lymphocytes # 0.8 L (1.0-4.8) k/uL Monocytes # 1.4 H (0-1.0) k/uL Sodium 135 L (137-145) mmol/L BUN 40 H (9-20) mg/dL Creatinine 3.46 H (0.66-1.25) mg/dL Glucose 72 L (74-99) mg/dL POC Glucose (mg/dL) (70-110) mg/dL Fluid Appearance (Clear) Microbiology - Last 24 Hours (Table) 08/24/23 10:00 Gram Stain - Preliminary Pleural Fluid Assessment and Plan Assessment: 1. End-stage renal disease on hemodialysis on a Saturday schedule as outpatient 2. Severe volume overload. 3. Large right pleural effusion 4. 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 5. CKD mineral bone disorder Plan: Repeat hemodialysis today and then again in a.m. Continue with midodrine Continue phosphate binders.
[2023-08-25] MEDS: FUROSEMIDE 10 MG/ML 2 ML VIAL IV ONE (11:46)
[2023-08-25 12:07] LABS: Glucose,Whole Blood 67 mg/dL (70-110)
[2023-08-25 12:34] LABS: Glucose,Whole Blood 66 mg/dL (70-110)
[2023-08-25] MEDS: DEXTROSE 50% SYRINGE 50 ML IVP PRN (12:36)
[2023-08-25] MEDS ORDERED: FLUTICASONE 50MCG/SPRAY NASAL 16GM EA NOSTRIL PRN (13:06)
[2023-08-25 13:13] LABS: Glucose,Whole Blood 95 mg/dL (70-110)
--- NOTE | 2023-08-25 14:06 | P.PN ---
Subjective Progress Note Date: 08/25/23 Principal diagnosis: Acute on chronic systolic congestive heart failure with fluid overload and right-sided pleural effusion This is a pleasant 53-year-old male patient with a known history of asthma, neck and ongoing tobacco dependence, marijuana use, coronary artery disease, congestive heart failure, chronic obstructive pulmonary disease, diabetes mellitus, hyperlipidemia, hypertension, ischemic cardiomyopathy with previous AICD placement, nonhealing ulceration of the right heel with subsequent [id number] amputation on July 26, 2023, chronic kidney disease receiving hemodialysis Saturday, diabetes mellitus, obstructive sleep apnea with CPAP use. He missed his dialysis on Saturday due to having an important meeting to go to. He presented here late last night with worsening shortness of breath and dyspnea on exertion. He also had increased lower extremity edema. Chest x-ray revealed a large right pleural effusion. White count platelets 189. INR 1.4. Sodium 132. Potassium 5.4. Bicarb 23. BUN 83. Creatinine 6.21. Glucose 188. Pro BNP level 72,100. Troponin 0.035. Viral screen negative. Ultrasound of the right chest revealed a 10.6 cm pocket however there was lung tissue seen within the fluid. He is seen today in consultation in the emergency department. He is currently sitting up on the stretcher. Awake and alert in no acute distress. Only maintaining O2 saturation in the 90s on 3 L/min per nasal cannula. Has been afebrile. Hemodynamically stable Patient was reevaluated today on 08/23/2023, he is resting in bed, receiving hemodialysis, chest x-ray this morning continues to show good sized right-sided pleural effusion however the ultrasound showed lung tissue which would likely interfere with the thoracentesis hence I am recommending for now medical therapy/hemodialysis and ultrafiltration. If no improvement could consider repeat ultrasound and proceed with right-sided thoracentesis. Patient does not seem to be in distress, he is actually on 3 L nasal cannula, and his O2 saturation is in the 90s. Blood pressure is stable. CBC is relatively normal basic metabolic profile is normal BUN is 62 creatinine 5.09 Patient was reevaluated today on 08/25/2023, patient underwent right-sided thoracentesis yesterday, doing well today, no coughing no wheezing, on 3 L nasal cannula with O2 sats of 98%. Patient is scheduled to have hemodialysis again today. The pleural effusion I drained yesterday came back to be exudative in nature, cultures are pending cytology is pending. BBC count today is 11.3 h emoglobin is 11 basic metabolic profile is normal BUN is 40 creatinine 3.46 Gram stain on the pleural effusion is negative Objective - Vital Signs Vital signs: Vital Signs Temp 97.7 F 08/25/23 07:46 Pulse 65 08/25/23 11:53 Resp 28 H 08/25/23 11:43 BP 110/70 08/25/23 11:43 Pulse Ox 98 08/25/23 11:43 FiO2 Intake & Output 08/24/23 08/25/23 08/25/23 18:59 06:59 18:59 Intake Total 1334 310 10 Output Total 3400 Balance -2066 310 10 Weight 118 kg Intake: IV 10 10 10 Invasive Line 1 10 10 10 Oral 924 300 Hemodialysis 400 Output: Hemodialysis 3400 Other: Voiding Method Urinal Urinal Urinal Diaper Diaper Diaper # Voids 1 1 # Bowel Movements 1 - Exam GENERAL EXAM: Alert, 53-year-old male patient, on 3 L nasal cannula, fairly comfortable in no apparent distress. HEAD: Normocephalic. EYES: Normal reaction of pupils, equal size. NOSE: Clear with pink turbinates. THROAT: No erythema or exudates. NECK: No masses, no JVD. CHEST: No chest wall deformity. LUNGS: Diminished breath sounds at the right base no rhonchi no wheezes CVS: S1 and S2 normal with no audible murmur, regular rhythm. ABDOMEN: No hepatosplenomegaly, normal bowel sounds, no guarding or rigidity. SKIN: No rashes CENTRAL NERVOUS SYSTEM: Alert oriented x 3 no gross deficit EXTREMITIES: Right above-knee amputation noted - Labs CBC & Chem 7: 08/25/23 09:01 08/25/23 09:01 Labs: Abnormal Lab Results - Last 24 Hours (Table) 08/24/23 08/24/23 08/25/23 Range/Units 10:00 20:20 09:01 WBC 11.3 H (3.8-10.6) k/uL RBC 3.85 L (4.30-5.90) m/uL Hgb 11.0 L (13.0-17.5) gm/dL Hct 36.7 L (39.0-53.0) % MCHC 29.9 L (31.0-37.0) g/dL RDW 16.7 H (11.5-15.5) % Plt Count 147 L (150-450) k/uL Neutrophils # 8.5 H (1.3-7.7) k/uL Lymphocytes # 0.8 L (1.0-4.8) k/uL Monocytes # 1.4 H (0-1.0) k/uL Sodium (137-145) mmol/L BUN (9-20) mg/dL Creatinine (0.66-1.25) mg/dL Glucose (74-99) mg/dL POC Glucose (mg/dL) 147 H (70-110) mg/dL Fluid Appearance Bloody A (Clear) 08/25/23 08/25/23 08/25/23 Range/Units 09:01 11:56 12:32 WBC (3.8-10.6) k/uL RBC (4.30-5.90) m/uL Hgb (13.0-17.5) gm/dL Hct (39.0-53.0) % MCHC (31.0-37.0) g/dL RDW (11.5-15.5) % Plt Count (150-450) k/uL Neutrophils # (1.3-7.7) k/uL Lymphocytes # (1.0-4.8) k/uL Monocytes # (0-1.0) k/uL Sodium 135 L (137-145) mmol/L BUN 40 H (9-20) mg/dL Creatinine 3.46 H (0.66-1.25) mg/dL Glucose 72 L (74-99) mg/dL POC Glucose (mg/dL) 67 L 66 L (70-110) mg/dL Fluid Appearance (Clear) Microbiology - Last 24 Hours (Table) 08/24/23 10:00 Gram Stain - Preliminary Pleural Fluid Assessment and Plan Assessment: Impression: Acute on chronic systolic congestive heart failure secondary to fluid volume ov erload from missed hemodialysis Ischemic cardiomyopathy, EF less than 20%status post AICD Chronic kidney disease stage III from diabetic nephropathy and nephrosclerosis, to receive dialysis Saturday's Acute kidney injury secondary to recently missed hemodialysis session, worsening renal function Recent S/p right [id number] amputation on 07/26/2023 from infected right heel diabetic ulcer with prior history of debridement. Culture showing MRSA. Nonhealing. Lower extremity chronic venous insufficiency COPD, currently stable History of chronic tobacco dependence History of marijuana use Diabetes mellitus type 2 chronically on insulin, uncontrolled with hypoglycemia Hyperlipidemia Moderate to severe MR/moderate TR and severe pulmonary hypertension Chronic low back pain Essential hypertension Obstructive sleep apnea sometimes uses CPAP machine Diabetic peripheral neuropathy status post right-sided thoracentesis 1150 cc of Fluid drained from the right pleural space Recommendations: Continue hemodialysis Status post right-sided thoracentesis on 08/24 results of which are pending Repeat chest x-ray in a.m. Waiting the results on the pleural effusion Continue bronchodilators Continue oxygen and titrate accordingly Will continue to follow-up with Time with Patient: Less than 30
[2023-08-25 16:50] LABS: Glucose,Whole Blood 85 mg/dL (70-110)
[2023-08-25] MEDS: FUROSEMIDE 10 MG/ML 10 ML VIAL IV STA (17:16)
[2023-08-25 19:39] LABS: Glucose,Whole Blood 91 mg/dL (70-110)
[2023-08-25] MEDS: MELATONIN 3 MG TABLET PO PRN (20:12)
[2023-08-25] MEDS: INSULIN DETEMIR (LEVEMIR) 100 UNIT/ML SYR SQ SCH (20:12)
[2023-08-26 06:06] LABS: Glucose,Whole Blood 69 mg/dL (70-110)
[2023-08-26 06:22] LABS: Glucose,Whole Blood 62 mg/dL (70-110)
[2023-08-26 06:38] LABS: Glucose,Whole Blood 69 mg/dL (70-110)
[2023-08-26 07:02] LABS: Glucose,Whole Blood 99 mg/dL (70-110)
[2023-08-26 07:22] LABS: ALT 22 U/L (4-49); AST 38 U/L (17-59); African American GFR (CKD) 23 (>60 ml/min/1.73 sqM); Albumin 3.1 g/dL (3.5-5.0); Alkaline Phosphatase 284 U/L (38-126); Anion Gap 17 mmol/L; Blood Urea Nitrogen 33 mg/dL (9-20); Calcium 8.8 mg/dL (8.4-10.2); Carbon Dioxide 18 mmol/L (22-30); Chloride 103 mmol/L (98-107); Glucose 62 mg/dL (74-99); Non-African American GFR(CKD) 20 (>60 ml/min/1.73 sqM); Sodium 138 mmol/L (137-145); Total Bilirubin 0.9 mg/dL (0.2-1.3); Total Protein 6.7 g/dL (6.3-8.2)
--- NOTE | 2023-08-26 08:38 | XR ---
EXAMINATION TYPE: XR chest 1V portable DATE OF EXAM: 08/26/2023 Comparison: 08/24/2023 Clinical History: 53-year-old male CHF Findings: Left anterior chest wall generator with right ventricular lead. Right-sided double-lumen hemodialysis catheter with tips in the upper right atrium. Right heart margin obscured by adjacent parenchymal op acities. Suspect at least mild cardiomegaly. Interstitial densities similar to slightly increased. On going moderate pleural effusion with density extending to the midlung level. Impression: 1. Ongoing pulmonary vascular congestion. Interstitium is similar to slightly worsened from prior. 2. Similar moderate right pleural effusion with adjacent atelectasis and/or consolidation extending t o the midlung level.
--- NOTE | 2023-08-26 09:58 | P.PN ---
Subjective Patient seen in follow-up for end-stage renal disease. He is maintained on hemodialysis on Saturday schedule. Tolerating dialysis well. Not a reliable historian. Blood pressure on the lower side. Vital signs are stable. Blood pressure on the lower side. General: No acute distress. HEENT: Head exam is unremarkable. LUNGS: No audible rhonchi or wheezes. HEART: Rate and Rhythm are regular. ABDOMEN: Obese. EXTREMITITES: Right AKA noted. 1+ edema. Objective - Vital Signs Vital signs: Vital Signs Temp 98.1 F 08/26/23 04:23 Pulse 82 08/26/23 09:15 Resp 18 08/26/23 09:15 BP 91/64 08/26/23 09:15 Pulse Ox 94 L 08/26/23 08:42 FiO2 40 08/26/23 04:23 Intake & Output 08/25/23 08/26/23 08/26/23 18:59 06:59 18:59 Intake Total 510 1096 Output Total 3800 300 Balance -3290 796 Weight 99.5 kg Intake: IV 10 20 Invasive Line 1 10 10 Invasive Line 3 10 Oral 1076 Hemodialysis 500 Output: Urine 300 300 Uretheral (Munoz) 300 Hemodialysis 3500 Other: Voiding Method Urinal Indwelling Catheter Diaper # Voids 1 - Labs CBC & Chem 7: 08/25/23 09:01 08/26/23 05:56 Labs: Abnormal Lab Results - Last 24 Hours (Table) 08/25/23 08/25/23 08/25/23 Range/Units 09:01 11:56 12:32 Sodium 135 L (137-145) mmol/L Potassium (3.5-5.1) mmol/L Carbon Dioxide (22-30) mmol/L BUN 40 H (9-20) mg/dL Creatinine 3.46 H (0.66-1.25) mg/dL Glucose 72 L (74-99) mg/dL POC Glucose (mg/dL) 67 L 66 L (70-110) mg/dL Alkaline Phosphatase (38-126) U/L Albumin (3.5-5.0) g/dL 08/26/23 08/26/23 08/26/23 Range/Units 05:56 06:04 06:21 Sodium (137-145) mmol/L Potassium 6.0 H (3.5-5.1) mmol/L Carbon Dioxide 18 L (22-30) mmol/L BUN 33 H (9-20) mg/dL Creatinine 3.38 H (0.66-1.25) mg/dL Glucose 62 L (74-99) mg/dL POC Glucose (mg/dL) 69 L 62 L (70-110) mg/dL Alkaline Phosphatase 284 H (38-126) U/L Albumin 3.1 L (3.5-5.0) g/dL 08/26/23 Range/Units 06:37 Sodium (137-145) mmol/L Potassium (3.5-5.1) mmol/L Carbon Dioxide (22-30) mmol/L BUN (9-20) mg/dL Creatinine (0.66-1.25) mg/dL Glucose (74-99) mg/dL POC Glucose (mg/dL) 69 L (70-110) mg/dL Alkaline Phosphatase (38-126) U/L Albumin (3.5-5.0) g/dL Microbiology - Last 24 Hours (Table) 08/24/23 10:00 Acid Fast Bacilli Smear - Preliminary Pleural Fluid 08/24/23 10:00 Gram Stain - Preliminary Pleural Fluid Body Fluid Culture - Preliminary Assessment and Plan Plan: Assessment: 1. End-stage renal disease maintained on hemodialysis on Saturday schedule. 2. Volume overload. Improving with ultrafiltration. 3. Chronic kidney disease mineral bone disease maintained on PhosLo. 4. Diabetes mellitus. 5. Acute on chronic systolic CHF with ejection fraction of 15 to 20% with moderate mitral and tricuspid regurgitation and moderate pulmonary hypertension. Plan: Currently seen while undergoing hemodialysis. Another treatment tomorrow. Check phosphorus level. Maintain fluid restriction.
[2023-08-26 12:07] LABS: Glucose,Whole Blood 119 mg/dL (70-110)
--- NOTE | 2023-08-26 14:22 | P.PN ---
Subjective Progress Note Date: 08/26/23 Principal diagnosis: Respiratory failure. Acute on chronic systolic congestive heart failure with fluid overload and right-sided pleural effusion This is a pleasant 53-year-old male patient with a known history of asthma, neck and ongoing tobacco dependence, marijuana use, coronary artery disease, congestive heart failure, chronic obstructive pulmonary disease, diabetes lambert itus, hyperlipidemia, hypertension, ischemic cardiomyopathy with previous AICD placement, nonhealing ulceration of the right heel with subsequent [id number] amputation on July 26, 2023, chronic kidney disease receiving hemodialysis Saturday, diabetes mellitus, obstructive sleep apnea with CPAP use. He missed his dialysis on Saturday due to having an important meeting to go to. He presented here late last night with worsening shortness of breath and dyspnea on exertion. He also had increased lower extremity edema. Chest x-ray revealed a large right pleural effusion. White count platelets 189. INR 1.4. Sodium 132. Potassium 5.4. Bicarb 23. BUN 83. Creatinine 6.21. Glucose 188. Pro BNP level 72,100. Troponin 0.035. Viral screen negative. Ultrasound of the right chest revealed a 10.6 cm pocket however there was lung tissue seen within the fluid. He is seen today in consultation in the emergency department. He is currently sitting up on the stretcher. Awake and alert in no acute distress. Only maintaining O2 saturation in the 90s on 3 L/min per nasal cannula. Has been afebrile. Hemodynamically stable Patient was reevaluated today on 08/23/2023, he is resting in bed, receiving hemodialysis, chest x-ray this morning continues to show good sized right-sided pleural effusion however the ultrasound showed lung tissue which would likely interfere with the thoracentesis hence I am recommending for now medical therapy/hemodialysis and ultrafiltration. If no improvement could consider repeat ultrasound and proceed with right-sided thoracentesis. Patient does not seem to be in distress, he is actually on 3 L nasal cannula, and his O2 satur ation is in the 90s. Blood pressure is stable. CBC is relatively normal basic metabolic profile is normal BUN is 62 creatinine 5.09 Patient was reevaluated today on 08/25/2023, patient underwent right-sided thoracentesis yesterday, doing well today, no coughing no wheezing, on 3 L nasal cannula with O2 sats of 98%. Patient is scheduled to have hemodialysis again today. The pleural effusion I drained yesterday came back to be exudative in nature, cultures are pending cytology is pending. BBC count today is 11.3 hemoglobin is 11 basic metabolic profile is normal BUN is 40 creatinine 3.46 Gr am stain on the pleural effusion is negative Progress note dated August 26, 2023. The patient appears to be doing relatively well. The patient is currently undergoing hemodialysis. The plan is to remove 4 L of fluid today. According to the nephrology nurse, the patient is going to have daily hemodialysis. Currently, he is on 5 L nasal cannula. He is not manifesting any signs or symptoms of respiratory distress. In addition, the patient can use BiPAP, with settings of 12/6, and 40%. No new labs today other than a phosphorus of 3.8, and a glucose of 119. Chest x-ray shows ongoing pulmonary vascular congestion, and a moderate right-sided pleural effusion, with some basilar atelectasis. Objective - Vital Signs Vital signs: Vital Signs Temp 98.0 F 08/26/23 12:38 Pulse 89 08/26/23 13:16 Resp 22 08/26/23 13:16 BP 103/68 08/26/23 13:16 Pulse Ox 95 08/26/23 13:16 FiO2 40 08/26/23 04:23 Intake & Output 08/25/23 08/26/23 08/26/23 18:59 06:59 18:59 Intake Total 510 1096 400 Output Total 3800 300 4400 Balance -3290 796 -4000 Weight 99.5 kg Intake: IV 10 20 Invasive Line 1 10 10 Invasive Line 3 10 Oral 1076 Hemodialysis 500 400 Output: Urine 300 300 Uretheral (Munoz) 300 Hemodialysis 3500 4400 Other: Voiding Method Urinal Indwelling Catheter Indwelling Catheter Diaper # Voids 1 - Exam No acute distress, oriented 3. The patient is chronically ill-appearing. He is currently on 5 L of oxygen. No respiratory distress. HEENT examination is grossly unremarkable. Mucous membranes are moist. No oral lesions. Neck supple. Full range of motion. No adenopathy thyromegaly or neck vein distention. Cardiovascular examination reveals regular rhythm rate. S1-S2 normal. No S3 or S4. No discernible murmur noted. Heart rate 89 bpm. Heart sounds are distant. Lungs reveal bilateral crackles and rhonchi. Breath sounds are equal bilatera lly. No wheezes. 5 L saturation is 95%. Abdomen is soft, but obese. Bowel sounds are noted. Extremities are intact. No cyanosis or clubbing. Bilateral lower extremity edema is noted. Skin is without rash or lesion. Neurologic examination is brief but nonfocal. - Labs CBC & Chem 7: 08/25/23 09:01 08/26/23 05:56 Labs: Abnormal Lab Results - Last 24 Hours (Table) 08/26/23 08/26/23 08/26/23 Range/Units 05:56 06:04 06:21 Potassium 6.0 H (3.5-5.1) mmol/L Carbon Dioxide 18 L (22-30) mmol/L BUN 33 H (9-20) mg/dL Creatinine 3.38 H (0.66-1.25) mg/dL Glucose 62 L (74-99) mg/dL POC Glucose (mg/dL) 69 L 62 L (70-110) mg/dL Alkaline Phosphatase 284 H (38-126) U/L Albumin 3.1 L (3.5-5.0) g/dL 08/26/23 08/26/23 Range/Units 06:37 12:06 Potassium (3.5-5.1) mmol/L Carbon Dioxide (22-30) mmol/L BUN (9-20) mg/dL Creatinine (0.66-1.25) mg/dL Glucose (74-99) mg/dL POC Glucose (mg/dL) 69 L 119 H (70-110) mg/dL Alkaline Phosphatase (38-126) U/L Albumin (3.5-5.0) g/dL Microbiology - Last 24 Hours (Table) 08/24/23 10:00 Acid Fast Bacilli Smear - Preliminary Pleural Fluid 08/24/23 10:00 Gram Stain - Preliminary Pleural Fluid Body Fluid Culture - Preliminary Assessment and Plan Assessment: Acute on chronic systolic congestive heart failure, secondary to fluid volume overload from missed hemodialysis. Ischemic cardiomyopathy, with an ejection fraction of 20%. Status postplacement of a automatic implantable cardiac defibrillator. Stage III chronic kidney disease, secondary to diabetic nephropathy, currently on hemodialysis, Saturday and Saturday. Acute kidney injury secondary to recently missed hemodialysis session. Recent right [id number] amputation secondary to an infected right heel diabetic ulcer. Lower extremity chronic venous insufficiency. History of chronic tobacco dependence, with underlying COPD. History of marijuana use. Type 2 diabetes mellitus, controlled with insulin. Hyperlipidemia. Moderate to severe mitral regurgitation/moderate tricuspid regurgitation, and severe pulmonary hypertension. Chronic low back pain. Essential hypertension. Obstructive sleep apnea syndrome, intermittent use of CPAP. Diabetic peripheral neuropathy. Status post right-sided thoracentesis, with nearly 1200 cc drained. Plan: Plan dated August 26, 2023. The patient will apparently have daily hemodialysis for the time being, according to nephrology. The patient is on nasal cannula at 5 L, or BiPAP, at 12/6, and 40%. The patient appears chronically ill. He continues on bronchodilators. The patient did have a right-sided thoracentesis. The patient is currently on 5 L, or BiPAP. Labs, x-rays, medications are reviewed. The patient's overall prognosis remains guarded. He looks much older than his stated age of 53 years. We will continue to follow make recommendations along the way. Time with Patient: Less than 30
--- NOTE | 2023-08-26 14:31 | P.PN ---
Subjective Progress Note Date: 08/26/23 HISTORY OF PRESENT ILLNESS: This is a 53-year-old male with a past medical history significant for rios schemic cardiomyopathy, AICD implantation, nonsustained ventricular tachycardia, hyperlipidemia, COPD, nicotine dependence, chronic kidney disease on hemodialysis, diabetes, and recent right AKA secondary to diabetic ulcer, and chronic hypotension. Patient follows in the office with Dr. Abbasi. We have been asked to see the patient in consultation for congestive heart failure. Patient examined at the bedside in the emergency room. Patient was recently hospitalized in June 2023 and underwent right BKA. He was discharged to [facility] in [place]. Patient states he missed his hemodialysis session yesterday because he had an appointment that he could not miss so he decided to skip hemodialysis. The patient states he began to feel short of breath yesterday evening and was brought to the hospital for further evaluation. The patient underwent hemodialysis this morning. He states his breathing has improved although he continues to be short of breath. He currently denies any chest pain or pressure. DIAGNOSTICS: - EKG reveals sinus mechanism with no signs of acute ischemia. Low voltage QRS. - Chest xray large right pleural effusion - Ultrasound of the chest reveals right chest wall soft tissue along the pleura with large pleural effusion. Small fluid pocket on the left. - Laboratory data: WBC 22.8. Hemoglobin 11.0. Platelet count 189. Sodium 132. Potassium 5.4. BUN 83. Creatinine 6.21. Troponin 0.035. proBNP 72,100. - Current home cardiac medications include amiodarone 200 mg daily, aspirin 81 mg daily, torsemide 40 mg daily, metoprolol tartrate 25 mg twice a day, mido drine 10 mg 3 times a day - Most recent echocardiogram obtained in June 2022 revealed ejection f raction less than 20%, severe pulmonary hypertension, moderate to severe MR, moderate TR - Cardiac catheterization history: February 2018 revealing minimal CAD August 23, 2023 Patient examined this morning at the bedside. Patient currently denies chest pain or pressure. He reports improvement in his shortness of breath. Patient underwent hemodialysis yesterday with removal of 3 L. He also underwent hemodialysis today with removal of 3 L. Telemetry reveals sinus mechanism with heart rate in the 70s. Blood pressure remains on the lower side with a systolic blood pressure in the 90s which is patient's baseline. August 24, 2023 Patient examined this morning at the bedside. Patient is somewhat lethargic at the time of examination. He denies chest pain or pressure. He reports shortnes s of breath. He is scheduled to undergo hemodialysis again today. Vital signs are stable. Echocardiogram completed revealing ejection fraction 15 to 20%, moderate mitral regurgitation, moderate tricuspid regurgitation, and moderate pulmonary hypertension August 25, 2023 Patient examined this morning at the bedside. Patient denies chest pain or pressure. He underwent hemodialysis yesterday. However, he remains dyspneic at the time of examination and is complaining of shortness of breath. He continues to have significant edema of his left leg, right stump, and abdomen. Blood pressure stable. Most recent blood pressure 98/64. 08/26 Patient is seen today in follow-up. He continues to have significant lower extremity abdominal edema. Patient was on BiPAP during the night currently on 5 L nasal cannula with pulse ox 95%, heart rate is running in the 80s, blood pressure 103/68. Repeat blood work reveals sodium 138, potassium 6, BUN 33 creatinine 3.38. ALT 284. Patient is having 4 L of fluid each dialysis treatment. His weight is documented to be improved from 111-95 however he continues to have significant edema. PHYSICAL EXAM: VITAL SIGNS: Reviewed. GENERAL: Well-developed in no acute distress. HEENT: Head is normocephalic. Pupils are equal, round. Sclerae anicteric. Mucous membranes of the mouth are moist. Neck supple. + JVD. No thyromegaly LUNGS: Respirations even and unlabored. Lungs with significantly decreased breath sounds on the right and crackles to the left base HEART: Regular rate and rhythm. S1 and S2 heard. Systolic murmur noted. EXTREMITIES: Normal range of motion. No clubbing or cyanosis. Right AKA. Left lower extremity with 3+ edema to abdomen and gauze dressing noted to calf. 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 No plans for thoracentesis at this time. Nephrology is following. Hemodialysis and diuretics per nephrology. Continue additional cardiac medications Patient is apparently scheduled for generator change on 08/28/2023. If patient r emains stable and his breathing improves, patient will undergo procedure. Further recommendations pending patient course Nurse practitioner note has been reviewed by physician. Signing provider agrees with the documented findings, assessment, and plan of care documented by [employer] as a scribe. Objective - Vital Signs Vital signs: Vital Signs Temp 98.0 F 08/26/23 12:38 Pulse 89 08/26/23 13:16 Resp 22 08/26/23 13:16 BP 103/68 08/26/23 13:16 Pulse Ox 95 08/26/23 13:16 FiO2 40 08/26/23 04:23 Intake & Output 08/25/23 08/26/23 08/26/23 18:59 06:59 18:59 Intake Total 510 1096 400 Output Total 3800 300 4400 Balance -3290 796 -4000 Weight 99.5 kg Intake: IV 10 20 Invasive Line 1 10 10 Invasive Line 3 10 Oral 1076 Hemodialysis 500 400 Output: Urine 300 300 Uretheral (Munoz) 300 Hemodialysis 3500 4400 Other: Voiding Method Urinal Indwelling Catheter Indwelling Catheter Diaper # Voids 1 - Labs CBC & Chem 7: 08/25/23 09:01 08/26/23 05:56 Labs: Abnormal Lab Results - Last 24 Hours (Table) 08/26/23 08/26/23 08/26/23 Range/Units 05:56 06:04 06:21 Potassium 6.0 H (3.5-5.1) mmol/L Carbon Dioxide 18 L (22-30) mmol/L BUN 33 H (9-20) mg/dL Creatinine 3.38 H (0.66-1.25) mg/dL Glucose 62 L (74-99) mg/dL POC Glucose (mg/dL) 69 L 62 L (70-110) mg/dL Alkaline Phosphatase 284 H (38-126) U/L Albumin 3.1 L (3.5-5.0) g/dL 08/26/23 08/26/23 Range/Units 06:37 12:06 Potassium (3.5-5.1) mmol/L Carbon Dioxide (22-30) mmol/L BUN (9-20) mg/dL Creatinine (0.66-1.25) mg/dL Glucose (74-99) mg/dL POC Glucose (mg/dL) 69 L 119 H (70-110) mg/dL Alkaline Phosphatase (38-126) U/L Albumin (3.5-5.0) g/dL Microbiology - Last 24 Hours (Table) 08/24/23 10:00 Acid Fast Bacilli Smear - Preliminary Pleural Fluid 08/24/23 10:00 Gram Stain - Preliminary Pleural Fluid Body Fluid Culture - Preliminary
[2023-08-26 16:11] LABS: Glucose,Whole Blood 117 mg/dL (70-110)
--- NOTE | 2023-08-26 19:10 | P.PN ---
Progress Note - Text Progress Note Date: 08/26/23 Chief Complaint: Short of breath This is a 53-year-old patient, follows with Dr. Rodríguez. Chronic stable medical condition include CHF EF less than 20%, COPD, diabetes mellitus type 2, hypertension, hyperlipidemia, obstructive sleep apnea, anxiety, AICD, lower extremity venous insufficiency. Patient had lower extremity wounds for which she followed with Dr. Karu from vascular and ID Dr. Abbasi. Multiple admissions. Patient finally agreed to amputation for the right foot wound that was not healing.. Finally on July 26 patient underwent right above-knee amputation by Dr. Kaur from vascular. Patient was discharged to a satellite medical care facility. Patient had been noncompliant with hemodialysis prior to that admission. Patient presented to our ER after being progressively increasing shortness of breath. He missed his dialysis yesterday. He became increasingly short of breath. Increasing edema. Some cough. Denies any fever and chills. Tired. Nephrology was called. Patient getting 3 L removed with dialysis today. Patient currently a resident of [facility]. Patient received midodrine today before started dialysis August 23: Tolerated breakfast well. 3 L of fluid being removed today. Patient is due for his generator change on August 28. Cardiology consulted and informed. Has edema. August 24: Oral intake good. Diet. Dialysis per nephrology. Right-sided thoracentesis 1156 cc removed. By pulmonary August 25: Tired. Congested chest. Short of breath. Pulse ox 87% on room air. August 26: Slightly less short of breath. To still present. Getting 4 L removed today. Blood pressure running in the 90s. But more awake Active Medications Acetaminophen (Acetaminophen Tab 325 Mg Tab) 650 mg PO Q6HR PRN PRN Reason: Mild Pain or Fever > 100.5 Last Admin: 08/25/23 03:18 Dose: 650 mg Hydrocodone Bitart/Acetaminophen (Hydrocodone/Apap 5-325mg 1 Each Tab) 1 each PO Q8HR LAN Last Admin: 08/26/23 16:51 Dose: Not Given Albuterol Sulfate (Albuterol Hfa Inhaler) 2 puff INHALATION RT-QID PRN PRN Reason: Shortness Of Breath Albuterol/Ipratropium (Ipratropium-Albuterol 3 Ml Neb) 3 ml INHALATION RT-Q2H PRN PRN Reason: Shortness Of Breath Or Wheezing Last Admin: 08/25/23 03:36 Dose: 3 ml Albuterol/Ipratropium (Ipratropium-Albuterol 3 Ml Neb) 3 ml INHALATION RT-QID [facility] Last Admin: 08/26/23 16:46 Dose: 3 ml Alprazolam (Alprazolam 0.25 Mg Tab) 0.5 mg PO Q8H PRN PRN Reason: Anxiety Last Admin: 08/26/23 15:13 Dose: 0.5 mg Amiodarone HCl (Amiodarone 200 Mg Tab) 200 mg PO DAILY [facility] Last Admin: 08/26/23 13:06 Dose: 200 mg Ascorbic Acid (Ascorbic Acid 500 Mg Tab) 1,000 mg PO DAILY [facility] Last Admin: 08/26/23 13:05 Dose: 1,000 mg Aspirin (Aspirin 81 Mg) 81 mg PO DAILY [facility] Last Admin: 08/26/23 13:05 Dose: 81 mg Calcium Acetate (Calcium Acetate 667 Mg Tab) 667 mg PO TID-W/MEALS [facility] Last Admin: 08/26/23 17:12 Dose: 667 mg Calcium Carbonate/Glycine (Calcium Carbonate 500 Mg Chewable) 1,000 mg PO Q4HR PRN PRN Reason: Dyspepsia Dextrose/Water (Dextrose 50% Syringe 50 Ml) 25 ml IVP PER PROTOCOL PRN; Protocol PRN Reason: Hypoglycemia Last Admin: 08/25/23 12:36 Dose: 25 ml Dextrose/Water (Dextrose 50% Syringe 50 Ml) 50 ml IVP PER PROTOCOL PRN; Protocol PRN Reason: Hypoglycemia Duloxetine HCl (Duloxetine Hcl 30 Mg Capsule.Dr) 30 mg PO DAILY [facility] Last Admin: 08/26/23 13:05 Dose: 30 mg Famotidine (Famotidine 20 Mg Tab) 20 mg PO DAILY [facility] Last Admin: 08/26/23 13:05 Dose: 20 mg Fluphenazine HCl (Fluphenazine 1 Mg Tab) 3 mg PO HS [facility] Last Admin: 08/25/23 20:12 Dose: 3 mg Fluticasone Propionate (Fluticasone 50mcg/[place] Nasal 16gm) 2 spray EA NOSTRIL DAILY PRN PRN Reason: Allergy Symptoms Folic Acid (Folic Acid 1 Mg Tab) 1 mg PO DAILY [facility] Last Admin: 08/26/23 13:06 Dose: 1 mg Insulin Aspart (Insulin Aspart (Novolog) 100 Unit/Ml Vial) 0 unit SQ [facility]; Protocol Last Admin: 08/26/23 17:03 Dose: Not Given Insulin Detemir (Insulin Detemir (Levemir) 100 Unit/Ml Syr) 10 unit SQ HS [facility] Last Admin: 08/25/23 20:12 Dose: 10 unit Lactulose (Lactulose 20 Gm/30 Ml Cup) 20 gm PO DAILY PRN PRN Reason: Constipation Melatonin (Melatonin 3 Mg Tablet) 3 mg PO HS PRN PRN Reason: Insomnia Last Admin: 08/25/23 20:12 Dose: 3 mg Metoprolol Tartrate (Metoprolol Tartrate 25 Mg Tab) 25 mg PO BID [facility] Last Admin: 08/26/23 13:05 Dose: 25 mg Midodrine (Midodrine 5 Mg Tab) 10 mg PO AC-TID [facility] Last Admin: 08/26/23 17:12 Dose: 10 mg Multivitamins (Multivitamins, Thera 1 Each Tab) 1 each PO DAILY [facility] Last Admin: 08/26/23 13:05 Dose: 1 each Naloxone HCl (Naloxone 0.4 Mg/Ml 1 Ml Vial) 0.2 mg IV Q2M PRN PRN Reason: Opioid Reversal Ondansetron HCl (Ondansetron 4 Mg/2 Ml Vial) 4 mg IVP Q8HR PRN PRN Reason: Nausea And Vomiting Trazodone HCl (Trazodone Hcl 50 Mg Tab) 50 mg PO HS PRN PRN Reason: Agitation Social history: Lives with his 20-year-old son. Disabled. 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 Smoking 2 packs a day for most of his life . Stop drinking heavy alcohol about 20 years ago. Has done marijuana. Physical examination: VITAL SIGNS: 98, 89, 22, 103 x 68, 95% on 5 L GENERAL: Reclining in bed, a bit more awake-getting dialysis EYES: Pupils equal. Conjunctiva normal. HEENT: External appearance of nose and ears normal, oral cavity grossly normal. NECK: JVD raised; masses not palpable. HEART: First and second heart sounds are normal; significant edema LUNGS: Respiratory rate increased; diminished breath sounds ABDOMEN: Soft, nontender, liver spleen not palpable, no masses palpable. PSYCH: A bit more awake, answering some questions NEUROLOGICAL: Cranial nerves grossly intact. No facial asymmetry DERMATOLOGICAL: Right above-knee amputation. The stump is gross stitches. Left lower extremity wound INVESTIGATIONS, reviewed in the clinical context: August 23: White count 13.9 hemoglobin 10.9 platelets 194 potassium 5.2 BUN 62 creatinine 5.09 August 21, 2023: White count 22.8 hemoglobin 11 platelets were 89 sodium 132 potassium 5.4 BUN 83 creatinine 6.21 Troponin I 0.035. proBNP 80774 Influenza type A, type B, RSV, COVID-19: Not detected EKG tracing personally reviewed by me-normal sinus rhythm. Chest x-ray film personally reviewed by me-large right pleural effusion Chest ultrasound: Large right pleural effusion Assessment and plan: -Acute on chronic congestive heart failure nonischemic cardiomyopathy systolic dysfunction EF less than 20%: Worsening from missed hemodialysis.: Slow to respond Hemodialysis-Daily. AICD. Fluid restriction 1500 mL. Follow-up with cardiology and nephrology -Acute uremic and hypoxic encephalopathy: Slow improvement -Acute hypoxic respiratory failure from fluid overload/CHF.: Slow to respond 5 L L nasal cannula. Requiring BiPAP -Right above-knee amputation by Dr. Yared Lugo on June 2024 Follow-up with Dr. Kaur -Acute COPD exacerbation in a previous smoker Ventolin. DuoNeb-4 times daily. - AICD -Diabetes mellitus type 2 chronically on insulin, uncontrolled with [id number] Levemir 18 units subcu Diabetic diet. Accu-Cheks and sliding scale -Iron deficiency anemia aranesp -Hyperlipidemia Lipitor -End-stage kidney disease on hemodialysis Right IJ dialysis catheter -Hyponatremia-mild Fluid restriction -Chronic low back pain. Patient's had pain on and off for about 10 years. Has had prior surgery. Does not remember who did the surgery. When necessary pain medication -Hypotension. Midodrine -Obstructive sleep apnea sometimes uses CPAP machine -Diabetic peripheral neuropathy -Anxiety, depression Trazodone, Cymbalta -DJD Tylenol when necessary -AICD Due for generator change on August 28. Cardiology aware. -Lower extremity chronic venous insufficiency, with left lower extremity wounds Dr. Kaur consulted -Full code Daily hemodialysis/ultrafiltration. Continue current treatment plan. Past Medical History Past Medical History: Asthma, Coronary Artery Disease (CAD), Chest Pain / Angina, Heart Failure, COPD, Diabetes Mellitus, GERD/Reflux, Hyperlipidemia, Hypertension, Myocardial Infarction (IA), Pneumonia, Sleep Apnea/CPAP/BIPAP, Supraventricular Tachycardia (SVT) Additional Past Medical History / Comment(s): Ischemic cardiomyopathy, chronic CHF, SVT, IDDM type II, KAMINI with CPAP occasionally used, chronic cervical/back pain, DJD, diabetic foot wounds x 4 months. Dialysis Last Myocardial Infarction Date:: 12/11/17 History of Any Multi-Drug Resistant Organisms: MRSA Date of last positivie culture/infection: 06/15/23 MDRO Source:: Right Foot Past Surgical History: Adenoidectomy, AICD, Back Surgery, Cholecystectomy, EPS, Heart Catheterization, Pacemaker, Tonsillectomy Additional Past Surgical History / Comment(s): 12/10/17 cardiac cath, previous cardiac cath, 09/02/14 AICD/pacer, EGD/colonoscopy, low back surgery with fusion. Past Anesthesia/Blood Transfusion Reactions: Motion Sickness Additional Past Anesthesia/Blood Transfusion Reaction / Comment(s): Pt states he received blood with back surgery without reaction. Type of Cardiac Device: Permanent Pacemaker, AICD Device Placement Date:: 09-02-14 Past Psychological History: ADD/ADHD, Anxiety Smoking Status: Current every day smoker Past Alcohol Use History: Occasional Past Drug Use History: Marijuana
[2023-08-26 20:20] LABS: Glucose,Whole Blood 123 mg/dL (70-110)
[2023-08-27 06:02] LABS: Glucose,Whole Blood 137 mg/dL (70-110)
[2023-08-27 08:19] LABS: African American GFR (CKD) 27 (>60 ml/min/1.73 sqM); Anion Gap 13 mmol/L; Blood Urea Nitrogen 28 mg/dL (9-20); Calcium 8.9 mg/dL (8.4-10.2); Carbon Dioxide 23 mmol/L (22-30); Chloride 96 mmol/L (98-107); Glucose 129 mg/dL (74-99); Non-African American GFR(CKD) 23 (>60 ml/min/1.73 sqM); Potassium 4.3 mmol/L (3.5-5.1); Sodium 132 mmol/L (137-145)
--- NOTE | 2023-08-27 10:42 | XR ---
EXAMINATION TYPE: XR chest 1V portable DATE OF EXAM: 08/27/2023 Comparison: 08/26/2023 Clinical History: 53-year-old male shortness of breath Findings: Left anterior chest wall ICD generator with right ventricular lead. Right-sided double-lumen hemodial ysis catheter tips in the right atrium. Right heart margin remains obscured by adjacent pleural paren chymal opacity. Ongoing moderate to large right pleural effusion. Interstitial density persists. Impression: Ongoing moderate to large right pleural effusion with adjacent atelectasis and/or consolidation. Susp ect background mild pulmonary vascular congestion also similar.
--- NOTE | 2023-08-27 10:56 | P.PN ---
Subjective Patient seen in follow-up for end-stage renal disease. He is maintained on hemodialysis on Saturday schedule. Tolerating dialysis well. Not a reliable historian. Blood pressure on the lower side. Vital signs are stable. Blood pressure on the lower side. General: No acute distress. HEENT: Head exam is unremarkable. On BiPAP. LUNGS: No audible rhonchi or wheezes. HEART: Rate and Rhythm are regular. ABDOMEN: Obese. EXTREMITITES: Right AKA noted. 1+ edema. Objective - Vital Signs Vital signs: Vital Signs Temp 97.8 F 08/27/23 08:00 Pulse 75 08/27/23 08:07 Resp 27 H 08/27/23 08:00 BP 103/50 08/27/23 08:00 Pulse Ox 97 08/27/23 08:00 FiO2 40 08/27/23 08:00 Intake & Output 08/26/23 08/27/23 08/27/23 18:59 06:59 18:59 Intake Total 500 Output Total 4400 0 Balance -3900 0 Intake: Oral 100 Hemodialysis 400 Output: Urine 0 Hemodialysis 4400 Other: Voiding Method Indwelling Catheter Indwelling Catheter # Voids 0 - Labs CBC & Chem 7: 08/25/23 09:01 08/27/23 07:24 Labs: Abnormal Lab Results - Last 24 Hours (Table) 08/26/23 08/26/23 08/26/23 Range/Units 12:06 16:10 20:19 Sodium (137-145) mmol/L Chloride (98-107) mmol/L BUN (9-20) mg/dL Creatinine (0.66-1.25) mg/dL Glucose (74-99) mg/dL POC Glucose (mg/dL) 119 H 117 H 123 H (70-110) mg/dL 08/27/23 08/27/23 Range/Units 06:00 07:24 Sodium 132 L (137-145) mmol/L Chloride 96 L (98-107) mmol/L BUN 28 H (9-20) mg/dL Creatinine 2.92 H (0.66-1.25) mg/dL Glucose 129 H (74-99) mg/dL POC Glucose (mg/dL) 137 H (70-110) mg/dL Microbiology - Last 24 Hours (Table) 01/27/24 10:00 Gram Stain - Preliminary Pleural Fluid Body Fluid Culture - Preliminary Assessment and Plan Plan: Assessment: 1. End-stage renal disease maintained on hemodialysis on Saturday schedule. 2. Volume overload. Improving with ultrafiltration. 3. Chronic kidney disease mineral bone disease maintained on PhosLo. Phosphorus level 3.8 dated August 26, 2023. 4. Diabetes mellitus. 5. Acute on chronic systolic CHF with ejection fraction of 15 to 20% with moderate mitral and tricuspid regurgitation and moderate pulmonary hypertension. Plan: Currently seen while undergoing hemodialysis. Another treatment tomorrow. Maintain fluid restriction. Prognosis guarded. Hospice should be considered.
[2023-08-27 11:42] LABS: Glucose,Whole Blood 104 mg/dL (70-110)
[2023-08-27] MEDS ORDERED: ZINC OXIDE PASTE (Z-GUARD) 1 APPLIC TOPICAL PRN (11:52)
--- NOTE | 2023-08-27 13:29 | P.PN ---
Subjective Progress Note Date: 08/27/23 Principal diagnosis: Respiratory failure. Acute on chronic systolic congestive heart failure with fluid overload and right-sided pleural effusion This is a pleasant 53-year-old male patient with a known history of asthma, neck and ongoing tobacco dependence, marijuana use, coronary artery disease, congestive heart failure, chronic obstructive pulmonary disease, diabetes lambert itus, hyperlipidemia, hypertension, ischemic cardiomyopathy with previous AICD placement, nonhealing ulceration of the right heel with subsequent [id number] amputation on July 26, 2023, chronic kidney disease receiving hemodialysis Saturday, diabetes mellitus, obstructive sleep apnea with CPAP use. He missed his dialysis on Saturday due to having an important meeting to go to. He presented here late last night with worsening shortness of breath and dyspnea on exertion. He also had increased lower extremity edema. Chest x-ray revealed a large right pleural effusion. White count platelets 189. INR 1.4. Sodium 132. Potassium 5.4. Bicarb 23. BUN 83. Creatinine 6.21. Glucose 188. Pro BNP level 72,100. Troponin 0.035. Viral screen negative. Ultrasound of the right chest revealed a 10.6 cm pocket however there was lung tissue seen within the fluid. He is seen today in consultation in the emergency department. He is currently sitting up on the stretcher. Awake and alert in no acute distress. Only maintaining O2 saturation in the 90s on 3 L/min per nasal cannula. Has been afebrile. Hemodynamically stable Patient was reevaluated today on 08/23/2023, he is resting in bed, receiving hemodialysis, chest x-ray this morning continues to show good sized right-sided pleural effusion however the ultrasound showed lung tissue which would likely interfere with the thoracentesis hence I am recommending for now medical therapy/hemodialysis and ultrafiltration. If no improvement could consider repeat ultrasound and proceed with right-sided thoracentesis. Patient does not seem to be in distress, he is actually on 3 L nasal cannula, and his O2 satur ation is in the 90s. Blood pressure is stable. CBC is relatively normal basic metabolic profile is normal BUN is 62 creatinine 5.09 Patient was reevaluated today on 08/25/2023, patient underwent right-sided thoracentesis yesterday, doing well today, no coughing no wheezing, on 3 L nasal cannula with O2 sats of 98%. Patient is scheduled to have hemodialysis again today. The pleural effusion I drained yesterday came back to be exudative in nature, cultures are pending cytology is pending. BBC count today is 11.3 hemoglobin is 11 basic metabolic profile is normal BUN is 40 creatinine 3.46 Gr am stain on the pleural effusion is negative Progress note dated August 26, 2023. The patient appears to be doing relatively well. The patient is currently undergoing hemodialysis. The plan is to remove 4 L of fluid today. According to the nephrology nurse, the patient is going to have daily hemodialysis. Currently, he is on 5 L nasal cannula. He is not manifesting any signs or symptoms of respiratory distress. In addition, the patient can use BiPAP, with settings of 12/6, and 40%. No new labs today other than a phosphorus of 3.8, and a glucose of 119. Chest x-ray shows ongoing pulmonary vascular congestion, and a moderate right-sided pleural effusion, with some basilar atelectasis. Progress note dated August 27, 2023. 53-year-old male seen in room 370. He is currently undergoing hemodialysis. The patient could not sustain himself on nasal cannula, so is back on BiPAP, wi th settings of 12/6, and 40%. The plan for hemodialysis today is to remove 3 L of fluid. The patient is not receiving any IV fluids either. Labs today include a sodium 132, potassium 4.3, chloride 96, CO2 23, anion gap 13, BUN 28, creatinine 2.92. Glucose is 129 with a calcium of 8.9. Chest x-ray from today shows a large right-sided pleural effusion, with adjacent atelectasis. In addition, there is evidence of vascular overload. Objective - Vital Signs Vital signs: Vital Signs Temp 97.8 F 08/27/23 08:00 Pulse 80 08/27/23 11:56 Resp 28 H 08/27/23 11:52 BP 93/62 08/27/23 11:52 Pulse Ox 96 08/27/23 11:52 FiO2 40 08/27/23 11:52 Intake & Output 08/26/23 08/27/23 08/27/23 18:59 06:59 18:59 Intake Total 500 Output Total 4400 0 Balance -3900 0 Intake: Oral 100 Hemodialysis 400 Output: Urine 0 Hemodialysis 4400 Other: Voiding Method Indwelling Catheter Indwelling Catheter Indwelling Catheter # Voids 0 - Exam No acute distress, oriented 3. The patient is chronically ill-appearing. He is currently on BiPAP. HEENT examination is grossly unremarkable. Mucous membranes are moist. No oral lesions. Neck supple. Full range of motion. No adenopathy thyromegaly or neck vein di stention. Cardiovascular examination reveals regular rhythm rate. S1-S2 normal. No S3 or S4. No discernible murmur noted. Heart rate 80 bpm. Heart sounds are distant. Lungs reveal bilateral crackles and rhonchi. Breath sounds are equal bilaterally. No wheezes. Saturations are 96% on BiPAP. Abdomen is soft, but obese. Bowel sounds are noted. Extremities are intact. No cyanosis or clubbing. Bilateral lower extremity edema is noted. Skin is without rash or lesion. Neurologic examination is brief but nonfocal. - Labs CBC & Chem 7: 08/25/23 09:01 08/27/23 07:24 Labs: Abnormal Lab Results - Last 24 Hours (Table) 08/26/23 08/26/23 08/27/23 Range/Units 16:10 20:19 06:00 Sodium (137-145) mmol/L Chloride (98-107) mmol/L BUN (9-20) mg/dL Creatinine (0.66-1.25) mg/dL Glucose (74-99) mg/dL POC Glucose (mg/dL) 117 H 123 H 137 H (70-110) mg/dL 08/27/23 Range/Units 07:24 Sodium 132 L (137-145) mmol/L Chloride 96 L (98-107) mmol/L BUN 28 H (9-20) mg/dL Creatinine 2.92 H (0.66-1.25) mg/dL Glucose 129 H (74-99) mg/dL POC Glucose (mg/dL) (70-110) mg/dL Microbiology - Last 24 Hours (Table) 08/24/23 10:00 Gram Stain - Preliminary Pleural Fluid Body Fluid Culture - Preliminary Assessment and Plan Assessment: Acute on chronic systolic congestive heart failure, secondary to fluid volume overload from missed hemodialysis. Ischemic cardiomyopathy, with an ejection fraction of 20%. Status postplacement of a automatic implantable cardiac defibrillator. Stage III chronic kidney disease, secondary to diabetic nephropathy, currently on hemodialysis, Saturday and Saturday. Acute kidney injury secondary to recently missed hemodialysis session. Recent right [id number] amputation secondary to an infected right heel diabetic ulcer. Lower extremity chronic venous insufficiency. History of chronic tobacco dependence, with underlying COPD. History of marijuana use. Type 2 diabetes mellitus, controlled with insulin. Hyperlipidemia. Moderate to severe mitral regurgitation/moderate tricuspid regurgitation, and severe pulmonary hypertension. Chronic low back pain. Essential hypertension. Obstructive sleep apnea syndrome, intermittent use of CPAP. Diabetic peripheral neuropathy. Status post right-sided thoracentesis, with nearly 1200 cc drained. Plan: Plan dated August 26, 2023. The patient will apparently have daily hemodialysis for the time being, according to nephrology. The patient is on nasal cannula at 5 L, or BiPAP, at 12/6, and 40%. The patient appears chronically ill. He continues on bronchodilators. The patient did have a right-sided thoracentesis. The patient is currently on 5 L, or BiPAP. Labs, x-rays, medications are reviewed. The patient's overall prognosis remains guarded. He looks much older than his stated age of 53 years. We will continue to follow make recommendations along the way. Plan dated August 27, 2023. The patient is currently on hemodialysis. The plan is to remove about 3 L today. The patient's chest x-ray is reviewed. Labs, and medications were also reviewed. The patient's BiPAP settings are 12/6, and 40%. The patient is not receiving any IV fluids. I tried to have a conversation with the patient today about CODE STATUS. The patient was in and out, and really could not have an intelligent conversation about CODE STATUS, and whether or not he would want intubation with mechanical ventilation. According to the nurse, the patient's ex- wants nothing to do with the patient. Not sure that there is any other family members. Prognosis is poor. We will continue to follow, and make recommendations along the way. Time with Patient: Less than 30
--- NOTE | 2023-08-27 16:13 | P.PN ---
Subjective Progress Note Date: 08/27/23 HISTORY OF PRESENT ILLNESS: This is a 53-year-old male with a past medical history significant for rios schemic cardiomyopathy, AICD implantation, nonsustained ventricular tachycardia, hyperlipidemia, COPD, nicotine dependence, chronic kidney disease on hemodialysis, diabetes, and recent right AKA secondary to diabetic ulcer, and chronic hypotension. Patient follows in the office with Dr. Abbasi. We have been asked to see the patient in consultation for congestive heart failure. Patient examined at the bedside in the emergency room. Patient was recently hospitalized in June 2023 and underwent right BKA. He was discharged to [facility] in [place]. Patient states he missed his hemodialysis session yesterday because he had an appointment that he could not miss so he decided to skip hemodialysis. The patient states he began to feel short of breath yesterday evening and was brought to the hospital for further evaluation. The patient underwent hemodialysis this morning. He states his breathing has improved although he continues to be short of breath. He currently denies any chest pain or pressure. DIAGNOSTICS: - EKG reveals sinus mechanism with no signs of acute ischemia. Low voltage QRS. - Chest xray large right pleural effusion - Ultrasound of the chest reveals right chest wall soft tissue along the pleura with large pleural effusion. Small fluid pocket on the left. - Laboratory data: WBC 22.8. Hemoglobin 11.0. Platelet count 189. Sodium 132. Potassium 5.4. BUN 83. Creatinine 6.21. Troponin 0.035. proBNP 72,100. - Current home cardiac medications include amiodarone 200 mg daily, aspirin 81 mg daily, torsemide 40 mg daily, metoprolol tartrate 25 mg twice a day, mido drine 10 mg 3 times a day - Most recent echocardiogram obtained in June 2022 revealed ejection f raction less than 20%, severe pulmonary hypertension, moderate to severe MR, moderate TR - Cardiac catheterization history: February 2018 revealing minimal CAD August 23, 2023 Patient examined this morning at the bedside. Patient currently denies chest pain or pressure. He reports improvement in his shortness of breath. Patient underwent hemodialysis yesterday with removal of 3 L. He also underwent hemodialysis today with removal of 3 L. Telemetry reveals sinus mechanism with heart rate in the 70s. Blood pressure remains on the lower side with a systolic blood pressure in the 90s which is patient's baseline. August 24, 2023 Patient examined this morning at the bedside. Patient is somewhat lethargic at the time of examination. He denies chest pain or pressure. He reports shortnes s of breath. He is scheduled to undergo hemodialysis again today. Vital signs are stable. Echocardiogram completed revealing ejection fraction 15 to 20%, moderate mitral regurgitation, moderate tricuspid regurgitation, and moderate pulmonary hypertension August 25, 2023 Patient examined this morning at the bedside. Patient denies chest pain or pressure. He underwent hemodialysis yesterday. However, he remains dyspneic at the time of examination and is complaining of shortness of breath. He continues to have significant edema of his left leg, right stump, and abdomen. Blood pressure stable. Most recent blood pressure 98/64. 08/26 Patient is seen today in follow-up. He continues to have significant lower extremity abdominal edema. Patient was on BiPAP during the night currently on 5 L nasal cannula with pulse ox 95%, heart rate is running in the 80s, blood pressure 103/68. Repeat blood work reveals sodium 138, potassium 6, BUN 33 creatinine 3.38. ALT 284. Patient is having 4 L of fluid each dialysis treatment. His weight is documented to be improved from 111-95 however he continues to have significant edema. 08/27 Patient is currently on BiPAP and has a sitter at the bedside. He had dialysis with removal of 3 L of fluid. He seems to be a little more comfortable today and his respiratory status. Blood pressure is 92/54, heart rate in the 80s and 90s. Repeat blood work reveals sodium 132, potassium 4.3, BUN 28 creatinine 2.92. Chest x-ray moderate to large right pleural effusion with adjacent atelectasis and or consolidation. Noted that nephrology has recommended hospice. PHYSICAL EXAM: VITAL SIGNS: Reviewed. GENERAL: Well-developed in no acute distress. HEENT: Head is normocephalic. Pupils are equal, round. Sclerae anicteric. Mucous membranes of the mouth are moist. Neck supple. + JVD. No thyromegaly LUNGS: Respirations even and unlabored. Lungs with significantly decreased breath sounds on the right and crackles to the left base HEART: Regular rate and rhythm. S1 and S2 heard. Systolic murmur noted. EXTREMITIES: No clubbing or cyanosis. Right AKA. Left lower extremity with 1+ edema to abdomen and gauze dressing noted to calf. 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 Nephrology is following. Hemodialysis and diuretics per nephrology. Continue additional cardiac medications Patient is apparently scheduled for generator change on 08/28/2023. Patient is not currently stable to undergo procedure. Further recommendations pending patient course Nurse practitioner note has been reviewed by physician. Signing provider agrees with the documented findings, assessment, and plan of care documented by SILVER SOLDERER as a scribe. Objective - Vital Signs Vital signs: Vital Signs Temp 97.8 F 08/27/23 08:00 Pulse 86 08/27/23 14:05 Resp 26 H 08/27/23 14:05 BP 92/54 08/27/23 14:05 Pulse Ox 96 08/27/23 11:52 FiO2 40 08/27/23 11:52 Intake & Output 08/26/23 08/27/23 08/27/23 18:59 06:59 18:59 Intake Total 500 400 Output Total 4400 0 3100 Balance -3900 0 -2700 Intake: Oral 100 Hemodialysis 400 400 Output: Urine 0 Hemodialysis 4400 3100 Other: Voiding Method Indwelling Catheter Indwelling Catheter Indwelling Catheter # Voids 0 - Labs CBC & Chem 7: 08/25/23 09:01 08/27/23 07:24 Labs: Abnormal Lab Results - Last 24 Hours (Table) 08/26/23 08/26/23 08/27/23 Range/Units 16:10 20:19 06:00 Sodium (137-145) mmol/L Chloride (98-107) mmol/L BUN (9-20) mg/dL Creatinine (0.66-1.25) mg/dL Glucose (74-99) mg/dL POC Glucose (mg/dL) 117 H 123 H 137 H (70-110) mg/dL 08/27/23 Range/Units 07:24 Sodium 132 L (137-145) mmol/L Chloride 96 L (98-107) mmol/L BUN 28 H (9-20) mg/dL Creatinine 2.92 H (0.66-1.25) mg/dL Glucose 129 H (74-99) mg/dL POC Glucose (mg/dL) (70-110) mg/dL Microbiology - Last 24 Hours (Table) 08/24/23 10:00 Gram Stain - Preliminary Pleural Fluid Body Fluid Culture - Preliminary
[2023-08-27 16:57] LABS: Glucose,Whole Blood 148 mg/dL (70-110)
[2023-08-27 20:38] LABS: Glucose,Whole Blood 197 mg/dL (70-110)
--- NOTE | 2023-08-27 20:45 | P.PN ---
Progress Note - Text Progress Note Date: 08/27/23 Chief Complaint: Short of breath This is a 53-year-old patient, follows with Dr. Rodríguez. Chronic stable medical condition include CHF EF less than 20%, COPD, diabetes mellitus type 2, hypertension, hyperlipidemia, obstructive sleep apnea, anxiety, AICD, lower extremity venous insufficiency. Patient had lower extremity wounds for which she followed with Dr. Kaur from vascular and ID Dr. Abbasi. Multiple admissions. Patient finally agreed to amputation for the right foot wound that was not healing.. Finally on July 26 patient underwent right above-knee amputation by Dr. Kaur from vascular. Patient was discharged to a [facility] facility. Patient had been noncompliant with hemodialysis prior to that admission. Patient presented to our ER after being progressively increasing shortness of breath. He missed his dialysis yesterday. He became increasingly short of breath. Increasing edema. Some cough. Denies any fever and chills. Tired. Nephrology was called. Patient getting 3 L removed with dialysis today. Patient currently a resident of [facility]. Patient received midodrine today before started dialysis August 23: Tolerated breakfast well. 3 L of fluid being removed today. Patient is due for his generator change on August 28. Cardiology consulted and informed. Has edema. August 24: Oral intake good. Diet. Dialysis per nephrology. Right-sided thoracentesis 1156 cc removed. By pulmonary August 25: Tired. Congested chest. Short of breath. Pulse ox 87% on room air. August 26: Slightly less short of breath. To still present. Getting 4 L removed today. Blood pressure running in the 90s. But more awake August 27: Remains short of breath. BiPAP. Easily gets short winded. Getting dialysis again today. About 3 L plan to be removed. Some decrease in edema. Chest x-ray showing significant right-sided pleural effusion. Hopefully patient will benefit from right thoracentesis. We can have a further discussion with him about CODE STATUS in that case. Patient lives with his 20-year-old son. Dr. GIBSON from pulmonary following Active Medications Acetaminophen (Acetaminophen Tab 325 Mg Tab) 650 mg PO Q6HR PRN PRN Reason: Mild Pain or Fever > 100.5 Last Admin: 08/25/23 03:18 Dose: 650 mg Hydrocodone Bitart/Acetaminophen (Hydrocodone/Apap 5-325mg 1 Each Tab) 1 each PO Q8HR [facility] Last Admin: 08/27/23 17:29 Dose: Not Given Albuterol Sulfate (Albuterol Hfa Inhaler) 2 puff INHALATION RT-QID PRN PRN Reason: Shortness Of Breath Albuterol/Ipratropium (Ipratropium-Albuterol 3 Ml Neb) 3 ml INHALATION RT-Q2H PRN PRN Reason: Shortness Of Breath Or Wheezing Last Admin: 08/25/23 03:36 Dose: 3 ml Albuterol/Ipratropium (Ipratropium-Albuterol 3 Ml Neb) 3 ml INHALATION RT-QID [facility] Last Admin: 08/27/23 15:45 Dose: 3 ml Alprazolam (Alprazolam 0.25 Mg Tab) 0.5 mg PO Q8H PRN PRN Reason: Anxiety Last Admin: 08/27/23 05:13 Dose: 0.5 mg Amiodarone HCl (Amiodarone 200 Mg Tab) 200 mg PO DAILY [facility] Last Admin: 08/27/23 12:20 Dose: 200 mg Ascorbic Acid (Ascorbic Acid 500 Mg Tab) 1,000 mg PO DAILY [facility] Last Admin: 08/27/23 12:19 Dose: 1,000 mg Aspirin (Aspirin 81 Mg) 81 mg PO DAILY [facility] Last Admin: 08/27/23 12:19 Dose: 81 mg Calcium Acetate (Calcium Acetate 667 Mg Tab) 667 mg PO TID-W/MEALS [facility] Last Admin: 08/27/23 17:49 Dose: 667 mg Calcium Carbonate/Glycine (Calcium Carbonate 500 Mg Chewable) 1,000 mg PO Q4HR PRN PRN Reason: Dyspepsia Dextrose/Water (Dextrose 50% Syringe 50 Ml) 25 ml IVP PER PROTOCOL PRN; Protocol PRN Reason: Hypoglycemia Last Admin: 08/25/23 12:36 Dose: 25 ml Dextrose/Water (Dextrose 50% Syringe 50 Ml) 50 ml IVP PER PROTOCOL PRN; Protocol PRN Reason: Hypoglycemia Duloxetine HCl (Duloxetine Hcl 30 Mg Capsule.Dr) 30 mg PO DAILY [facility] Last Admin: 08/27/23 12:19 Dose: 30 mg Famotidine (Famotidine 20 Mg Tab) 20 mg PO DAILY [facility] Last Admin: 08/27/23 12:19 Dose: 20 mg Fluphenazine HCl (Fluphenazine 1 Mg Tab) 3 mg PO HS [facility] Last Admin: 08/26/23 20:23 Dose: 3 mg Fluticasone Propionate (Fluticasone 50mcg/Metz Nasal 16gm) 2 spray EA NOSTRIL DAILY PRN PRN Reason: Allergy Symptoms Folic Acid (Folic Acid 1 Mg Tab) 1 mg PO DAILY [facility] Last Admin: 08/27/23 12:19 Dose: 1 mg Insulin Aspart (Insulin Aspart (Novolog) 100 Unit/Ml Vial) 0 unit SQ [facility]; Protocol Last Admin: 08/27/23 17:30 Dose: Not Given Insulin Detemir (Insulin Detemir (Levemir) 100 Unit/Ml Syr) 10 unit SQ HS [facility] Last Admin: 08/27/23 19:54 Dose: Not Given Lactulose (Lactulose 20 Gm/30 Ml Cup) 20 gm PO DAILY PRN PRN Reason: Constipation Melatonin (Melatonin 3 Mg Tablet) 3 mg PO HS PRN PRN Reason: Insomnia Last Admin: 08/25/23 20:12 Dose: 3 mg Metoprolol Tartrate (Metoprolol Tartrate 25 Mg Tab) 25 mg PO BID [facility] Last Admin: 08/27/23 12:19 Dose: 25 mg Midodrine (Midodrine 5 Mg Tab) 10 mg PO AC-TID [facility] Last Admin: 08/27/23 17:48 Dose: 10 mg Multivitamins (Multivitamins, Thera 1 Each Tab) 1 each PO DAILY [facility] Last Admin: 08/27/23 12:19 Dose: 1 each Naloxone HCl (Naloxone 0.4 Mg/Ml 1 Ml Vial) 0.2 mg IV Q2M PRN PRN Reason: Opioid Reversal Ondansetron HCl (Ondansetron 4 Mg/2 Ml Vial) 4 mg IVP Q8HR PRN PRN Reason: Nausea And Vomiting Petrolatum (Zinc Oxide Paste (Z-Guard) 1 Applic) 1 applic TOPICAL DAILY PRN; Protocol PRN Reason: Wound Healing Trazodone HCl (Trazodone Hcl 50 Mg Tab) 50 mg PO HS PRN PRN Reason: Agitation Social history: Lives with his 20-year-old son. Disabled. 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 Smoking 2 packs a day for most of his life . Stop drinking heavy alcohol about 20 years ago. Has done marijuana. Physical examination: VITAL SIGNS: Afebrile, 80, 28, 93/62, 96% on BiPAP [FiO2-40;12/6 GENERAL: Reclining in bed, short of breath, getting dialysis s EYES: Pupils equal. Conjunctiva normal. HEENT: External appearance of nose and ears normal, oral cavity grossly normal. NECK: JVD raised; masses not palpable. HEART: First and second heart sounds are normal; significant edema LUNGS: Respiratory rate increased; diminished breath sounds ABDOMEN: Soft, nontender, liver spleen not palpable, no masses palpable. PSYCH: Does wake up at times to answer questions s NEUROLOGICAL: Cranial nerves grossly intact. No facial asymmetry DERMATOLOGICAL: Right above-knee amputation. The stump is gross stitches. Left lower extremity wound INVESTIGATIONS, reviewed in the clinical context: August 27: Sodium 132 potassium 4.3 creatinine 2.92 August 23: White count 13.9 hemoglobin 10.9 platelets 194 potassium 5.2 BUN 62 creatinine 5.09 August 21, 2023: White count 22.8 hemoglobin 11 platelets were 89 sodium 132 potassium 5.4 BUN 83 creatinine 6.21 Troponin I 0.035. proBNP [id number] Influenza type A, type B, RSV, COVID-19: Not detected EKG tracing personally reviewed by me-normal sinus rhythm. Chest x-ray film personally reviewed by me-large right pleural effusion Chest ultrasound: Large right pleural effusion Assessment and plan: -Acute on chronic congestive heart failure nonischemic cardiomyopathy systolic dysfunction EF less than 20%: Worsening from missed hemodialysis.: Slow to respond Hemodialysis-Daily. AICD. Fluid restriction 1500 mL. Follow-up with cardiology and nephrology -Acute uremic and hypoxic encephalopathy: Slow improvement -Acute hypoxic respiratory failure from fluid overload/CHF.: Worsening Requiring BiPAP -Right above-knee amputation by Dr. Yared Lugo on June 2024 Follow-up with Dr. Kaur -Large right pleural effusion from CHF: Uncontrolled Will likely benefit from thoracentesis. Ultrasound marking. Dr. Pabon from pulmonary and the case -Acute COPD exacerbation in a previous smoker Ventolin. DuoNeb-4 times daily. - AICD -Diabetes mellitus type 2 chronically on insulin, uncontrolled with [id number] Levemir 18 units subcu Diabetic diet. Accu-Cheks and sliding scale -Iron deficiency anemia aranesp -Hyperlipidemia Lipitor -End-stage kidney disease on hemodialysis Right IJ dialysis catheter -Hyponatremia-mild Fluid restriction -Chronic low back pain. Patient's had pain on and off for about 10 years. Has had prior surgery. Does not remember who did the surgery. When necessary pain medication -Hypotension. Midodrine -Obstructive sleep apnea sometimes uses CPAP machine -Diabetic peripheral neuropathy -Anxiety, depression Trazodone, Cymbalta -DJD Tylenol when necessary -AICD Due for generator change on August 28. Cardiology aware. -Lower extremity chronic venous insufficiency, with left lower extremity wounds Dr. Kaur consulted -Full code Patient will probably benefit from right thoracentesis. Ultrasound marking. Spoke to the nurse to have the patient's son come in. Prognosis guarded. Past Medical History Past Medical History: Asthma, Coronary Artery Disease (CAD), Chest Pain / Angina, Heart Failure, COPD, Diabetes Mellitus, GERD/Reflux, Hyperlipidemia, Hypertension, Myocardial Infarction ([place]), Pneumonia, Sleep Apnea/CPAP/BIPAP, Supraventricular Tachycardia (SVT) Additional Past Medical History / Comment(s): Ischemic cardiomyopathy, chronic CHF, SVT, IDDM type II, KAMINI with CPAP occasionally used, chronic cervical/back pain, DJD, diabetic foot wounds x 4 months. Dialysis Last Myocardial Infarction Date:: 12/11/17 History of Any Multi-Drug Resistant Organisms: MRSA Date of last positivie culture/infection: 06/15/23 MDRO Source:: Right Foot Past Surgical History: Adenoidectomy, AICD, Back Surgery, Cholecystectomy, EPS, Heart Catheterization, Pacemaker, Tonsillectomy Additional Past Surgical History / Comment(s): 12/10/17 cardiac cath, previous cardiac cath, 09/02/14 AICD/pacer, EGD/colonoscopy, low back surgery with fusion. Past Anesthesia/Blood Transfusion Reactions: Motion Sickness Additional Past Anesthesia/Blood Transfusion Reaction / Comment(s): Pt states he received blood with back surgery without reaction. Type of Cardiac Device: Permanent Pacemaker, AICD Device Placement Date:: 09-02-14 Past Psychological History: ADD/ADHD, Anxiety Smoking Status: Current every day smoker Past Alcohol Use History: Occasional Past Drug Use History: Marijuana
[2023-08-28 06:01] LABS: Glucose,Whole Blood 152 mg/dL (70-110)
--- NOTE | 2023-08-28 09:06 | US ---
EXAMINATION TYPE: US chest DATE OF EXAM: 08/27/2023 COMPARISON: 08/22/23. Xray: 08/27/23 CLINICAL INDICATION: Male, 53 years old with history of Right chest marking for thoracentesis; Danika roberts for rogerio Line Helper notes:Limited due to pt positioning TECHNIQUE: Targeted ultrasound of the posterior lower bilateral hemithoraces EXAM MEASUREMENTS: Right Pleural Effusion pocket size: 3.7 cm Right skin surface to fluid distance: 3.0 cm. Line Helper notes: Appears heterogeneous. Left Pleural Effusion pocket size: 0 Right side NOT marked for possible thoracentesis outside the dept. Left side NOT marked for possible thoracentesis outside the dept. Pulmonologists are able to review the images in the patient?s EMR. IMPRESSIONS: Trace right pleural effusion. No markings performed.
--- NOTE | 2023-08-28 11:11 | P.PN ---
Subjective Patient seen in follow-up for end-stage renal disease. He is maintained on hemodialysis on Saturday schedule. Tolerating dialysis well. Not a reliable historian. Blood pressure on the lower side. Vital signs are stable. Blood pressure on the lower side. General: No acute distress. HEENT: Head exam is unremarkable. On BiPAP. LUNGS: No audible rhonchi or wheezes. HEART: Rate and Rhythm are regular. ABDOMEN: Obese. EXTREMITITES: Right AKA noted. 1+ edema. Objective - Vital Signs Vital signs: Vital Signs Temp 97.9 F 08/28/23 09:30 Pulse 107 H 08/28/23 09:30 Resp 38 H 08/28/23 09:30 BP 111/68 08/28/23 09:30 Pulse Ox 97 08/28/23 09:30 FiO2 40 08/28/23 09:30 Intake & Output 08/27/23 08/28/23 08/28/23 18:59 06:59 18:59 Intake Total 425 0 Output Total 3100 250 Balance -2675 -250 0 Weight 99 kg Intake: Oral 25 0 Hemodialysis 400 Output: Urine 250 Hemodialysis 3100 Other: Voiding Method Indwelling Catheter Indwelling Catheter Indwelling Catheter # Voids 0 - Labs CBC & Chem 7: 08/25/23 09:01 08/27/23 07:24 Labs: Abnormal Lab Results - Last 24 Hours (Table) 08/27/23 08/27/23 08/28/23 Range/Units 16:54 20:37 05:59 POC Glucose (mg/dL) 148 H 197 H 152 H (70-110) mg/dL Microbiology - Last 24 Hours (Table) 08/24/23 10:00 Gram Stain - Preliminary Pleural Fluid Body Fluid Culture - Preliminary Assessment and Plan Plan: Assessment: 1. End-stage renal disease maintained on hemodialysis on Saturday schedule. 2. Volume overload. Improving with ultrafiltration. 3. Chronic kidney disease mineral bone disease maintained on PhosLo. Phosphorus level 3.8 dated August 26, 2023. 4. Diabetes mellitus. 5. Acute on chronic systolic CHF with ejection fraction of 15 to 20% with moderate mitral and tricuspid regurgitation and moderate pulmonary hypertension. Plan: Currently seen while undergoing hemodialysis. Continue with daily dialysis. Maintain fluid restriction. Maintain midodrine. Prognosis guarded. Hospice should be considered. Guardianship being obtained.
[2023-08-28 11:21] LABS: Glucose,Whole Blood 167 mg/dL (70-110)
--- NOTE | 2023-08-28 12:09 | P.PN ---
Subjective Progress Note Date: 08/28/23 HISTORY OF PRESENT ILLNESS: This is a 53-year-old male with a past medical history significant for rios schemic cardiomyopathy, AICD implantation, nonsustained ventricular tachycardia, hyperlipidemia, COPD, nicotine dependence, chronic kidney disease on hemodialysis, diabetes, and recent right AKA secondary to diabetic ulcer, and chronic hypotension. Patient follows in the office with Dr. Abbasi. We have been asked to see the patient in consultation for congestive heart failure. Patient examined at the bedside in the emergency room. Patient was recently hospitalized in June 2023 and underwent right BKA. He was discharged to [facility] in [place]. Patient states he missed his hemodialysis session yesterday because he had an appointment that he could not miss so he decided to skip hemodialysis. The patient states he began to feel short of breath yesterday evening and was brought to the hospital for further evaluation. The patient underwent hemodialysis this morning. He states his breathing has improved although he continues to be short of breath. He currently denies any chest pain or pressure. DIAGNOSTICS: - EKG reveals sinus mechanism with no signs of acute ischemia. Low voltage QRS. - Chest xray large right pleural effusion - Ultrasound of the chest reveals right chest wall soft tissue along the pleura with large pleural effusion. Small fluid pocket on the left. - Laboratory data: WBC 22.8. Hemoglobin 11.0. Platelet count 189. Sodium 132. Potassium 5.4. BUN 83. Creatinine 6.21. Troponin 0.035. proBNP 72,100. - Current home cardiac medications include amiodarone 200 mg daily, aspirin 81 mg daily, torsemide 40 mg daily, metoprolol tartrate 25 mg twice a day, mido drine 10 mg 3 times a day - Most recent echocardiogram obtained in June 2022 revealed ejection f raction less than 20%, severe pulmonary hypertension, moderate to severe MR, moderate TR - Cardiac catheterization history: February 2018 revealing minimal CAD August 23, 2023 Patient examined this morning at the bedside. Patient currently denies chest pain or pressure. He reports improvement in his shortness of breath. Patient underwent hemodialysis yesterday with removal of 3 L. He also underwent hemodialysis today with removal of 3 L. Telemetry reveals sinus mechanism with heart rate in the 70s. Blood pressure remains on the lower side with a systolic blood pressure in the 90s which is patient's baseline. August 24, 2023 Patient examined this morning at the bedside. Patient is somewhat lethargic at the time of examination. He denies chest pain or pressure. He reports shortnes s of breath. He is scheduled to undergo hemodialysis again today. Vital signs are stable. Echocardiogram completed revealing ejection fraction 15 to 20%, moderate mitral regurgitation, moderate tricuspid regurgitation, and moderate pulmonary hypertension August 25, 2023 Patient examined this morning at the bedside. Patient denies chest pain or pressure. He underwent hemodialysis yesterday. However, he remains dyspneic at the time of examination and is complaining of shortness of breath. He continues to have significant edema of his left leg, right stump, and abdomen. Blood pressure stable. Most recent blood pressure 98/64. 08/26 Patient is seen today in follow-up. He continues to have significant lower extremity abdominal edema. Patient was on BiPAP during the night currently on 5 L nasal cannula with pulse ox 95%, heart rate is running in the 80s, blood pressure 103/68. Repeat blood work reveals sodium 138, potassium 6, BUN 33 creatinine 3.38. ALT 284. Patient is having 4 L of fluid each dialysis treatment. His weight is documented to be improved from 111-95 however he continues to have significant edema. 08/27 Patient is currently on BiPAP and has a sitter at the bedside. He had dialysis with removal of 3 L of fluid. He seems to be a little more comfortable today and his respiratory status. Blood pressure is 92/54, heart rate in the 80s and 90s. Repeat blood work reveals sodium 132, potassium 4.3, BUN 28 creatinine 2.92. Chest x-ray moderate to large right pleural effusion with adjacent atelectasis and or consolidation. Noted that nephrology has recommended hospice. 08/28 Patient is currently undergoing hemodialysis and goal is for removal of 1 and half liters but his blood pressure is not tolerating this. He is also on BiPAP and has a sitter at the bedside. Heart rate is 110, respiratory rate 34, blood pressure prior to dialysis was 111/68 but dropping systolic down to the 80s. PHYSICAL EXAM: VITAL SIGNS: Reviewed. GENERAL: Lethargic but answering questions. HEENT: Head is normocephalic. Pupils are equal, round. Sclerae anicteric. LUNGS: Respirations labored. Lungs with decreased breath sounds and crackles HEART: Regular rate and rhythm. S1 and S2 heard. Systolic murmur noted. EXTREMITIES: Right AKA. 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 Nephrology is following. Hemodialysis and diuretics per nephrology. Continue additional cardiac medications Patient will be started on dobutamine at 2.5 mcg. Patient is apparently scheduled for generator change on 08/28/2023. Patient is not currently stable to undergo procedure. Patient is appropriate for hospice care. Prognosis is poor. Nurse practitioner note has been reviewed by physician. Signing provider agrees with the documented findings, assessment, and plan of care documented by ORDER TRACER as a scribe. Objective - Vital Signs Vital signs: Vital Signs Temp 97.9 F 08/28/23 09:30 Pulse 107 H 08/28/23 09:30 Resp 38 H 08/28/23 09:30 BP 111/68 08/28/23 09:30 Pulse Ox 97 08/28/23 09:30 FiO2 40 08/28/23 09:30 Intake & Output 08/27/23 08/28/23 08/28/23 18:59 06:59 18:59 Intake Total 425 0 Output Total 3100 250 Balance -2675 -250 0 Weight 99 kg Intake: Oral 25 0 Hemodialysis 400 Output: Urine 250 Hemodialysis 3100 Other: Voiding Method Indwelling Catheter Indwelling Catheter Indwelling Catheter # Voids 0 - Labs CBC & Chem 7: 08/25/23 09:01 08/27/23 07:24 Labs: Abnormal Lab Results - Last 24 Hours (Table) 08/27/23 08/27/23 08/28/23 Range/Units 16:54 20:37 05:59 POC Glucose (mg/dL) 148 H 197 H 152 H (70-110) mg/dL Microbiology - Last 24 Hours (Table) 08/24/23 10:00 Gram Stain - Preliminary Pleural Fluid Body Fluid Culture - Preliminary
--- NOTE | 2023-08-28 13:44 | P.PN ---
Subjective Progress Note Date: 08/28/23 Principal diagnosis: Respiratory failure. Acute on chronic systolic congestive heart failure with fluid overload and right-sided pleural effusion This is a pleasant 53-year-old male patient with a known history of asthma, neck and ongoing tobacco dependence, marijuana use, coronary artery disease, congestive heart failure, chronic obstructive pulmonary disease, diabetes lambert itus, hyperlipidemia, hypertension, ischemic cardiomyopathy with previous AICD placement, nonhealing ulceration of the right heel with subsequent [id number] amputation on July 26, 2023, chronic kidney disease receiving hemodialysis Saturday, diabetes mellitus, obstructive sleep apnea with CPAP use. He missed his dialysis on Saturday due to having an important meeting to go to. He presented here late last night with worsening shortness of breath and dyspnea on exertion. He also had increased lower extremity edema. Chest x-ray revealed a large right pleural effusion. White count platelets 189. INR 1.4. Sodium 132. Potassium 5.4. Bicarb 23. BUN 83. Creatinine 6.21. Glucose 188. Pro BNP level 72,100. Troponin 0.035. Viral screen negative. Ultrasound of the right chest revealed a 10.6 cm pocket however there was lung tissue seen within the fluid. He is seen today in consultation in the emergency department. He is currently sitting up on the stretcher. Awake and alert in no acute distress. Only maintaining O2 saturation in the 90s on 3 L/min per nasal cannula. Has been afebrile. Hemodynamically stable Patient was reevaluated today on 08/23/2023, he is resting in bed, receiving hemodialysis, chest x-ray this morning continues to show good sized right-sided pleural effusion however the ultrasound showed lung tissue which would likely interfere with the thoracentesis hence I am recommending for now medical therapy/hemodialysis and ultrafiltration. If no improvement could consider repeat ultrasound and proceed with right-sided thoracentesis. Patient does not seem to be in distress, he is actually on 3 L nasal cannula, and his O2 satur ation is in the 90s. Blood pressure is stable. CBC is relatively normal basic metabolic profile is normal BUN is 62 creatinine 5.09 Patient was reevaluated today on 08/25/2023, patient underwent right-sided thoracentesis yesterday, doing well today, no coughing no wheezing, on 3 L nasal cannula with O2 sats of 98%. Patient is scheduled to have hemodialysis again today. The pleural effusion I drained yesterday came back to be exudative in nature, cultures are pending cytology is pending. BBC count today is 11.3 hemoglobin is 11 basic metabolic profile is normal BUN is 40 creatinine 3.46 Gr am stain on the pleural effusion is negative Progress note dated August 26, 2023. The patient appears to be doing relatively well. The patient is currently undergoing hemodialysis. The plan is to remove 4 L of fluid today. According to the nephrology nurse, the patient is going to have daily hemodialysis. Currently, he is on 5 L nasal cannula. He is not manifesting any signs or symptoms of respiratory distress. In addition, the patient can use BiPAP, with settings of 12/6, and 40%. No new labs today other than a phosphorus of 3.8, and a glucose of 119. Chest x-ray shows ongoing pulmonary vascular congestion, and a moderate right-sided pleural effusion, with some basilar atelectasis. Progress note dated August 27, 2023. 53-year-old male seen in room 370. He is currently undergoing hemodialysis. The patient could not sustain himself on nasal cannula, so is back on BiPAP, wi th settings of 12/6, and 40%. The plan for hemodialysis today is to remove 3 L of fluid. The patient is not receiving any IV fluids either. Labs today include a sodium 132, potassium 4.3, chloride 96, CO2 23, anion gap 13, BUN 28, creatinine 2.92. Glucose is 129 with a calcium of 8.9. Chest x-ray from today shows a large right-sided pleural effusion, with adjacent atelectasis. In addition, there is evidence of vascular overload. Progress note dated August 28, 2023. 53-year-old male seen in room 370. The patient is currently undergoing hemodialysis. He is currently on BiPAP, with settings of 13/6 and 40%. The plan for hemodialysis today is removal of 3 L of fluid. Yesterday, August 27, he had 3.1 L of fluid removed. The patient had an ultrasound of his chest ordered by the primary service. There is a small pocket of fluid on the right, only measuring 3.7 cm. There appears to be some debris in the pleural space as well. The left pleural space has no fluid. We tried to have a conversation with the patient yesterday about CODE STATUS, but I do not believe he was lucid enough to understand the conversation. Current labs today include a glucose of 167. Labs from yesterday, reviewed. His BUN and creatinine from yesterday was 28 and 2.92. Objective - Vital Signs Vital signs: Vital Signs Temp 98.6 F 08/28/23 12:58 Pulse 102 H 08/28/23 12:58 Resp 20 08/28/23 12:58 BP 101/60 08/28/23 12:58 Pulse Ox 98 08/28/23 12:30 FiO2 40 08/28/23 12:30 Intake & Output 08/27/23 08/28/23 08/28/23 18:59 06:59 18:59 Intake Total 425 400 Output Total 3100 250 2200 Balance -2675 -250 -1800 Weight 99 kg 99 kg Intake: Oral 25 0 Hemodialysis 400 400 Output: Urine 250 0 Hemodialysis 3100 2200 Other: Voiding Method Indwelling Catheter Indwelling Catheter Indwelling Catheter # Voids 0 - Exam No acute distress, oriented 3. The patient is chronically ill-appearing. He is currently on BiPAP. HEENT examination is grossly unremarkable. Mucous membranes are moist. No oral lesions. Neck supple. Full range of motion. No adenopathy thyromegaly or neck vein distention. Cardiovascular examination reveals regular rhythm rate. S1-S2 normal. No S3 or S4. No discernible murmur noted. Heart rate 92 bpm. Heart sounds are distant. Lungs reveal bilateral crackles and rhonchi. Breath sounds are equal bilaterally. No wheezes. Saturations are 98 % on BiPAP. Abdomen is soft, but obese. Bowel sounds are noted. Extremities are intact. No cyanosis or clubbing. Bilateral lower extremity edema is noted. Skin is without rash or lesion. Neurologic examination is brief but nonfocal. - Labs CBC & Chem 7: 08/25/23 09:01 08/27/23 07:24 Labs: Abnormal Lab Results - Last 24 Hours (Table) 08/27/23 08/27/23 08/28/23 Range/Units 16:54 20:37 05:59 POC Glucose (mg/dL) 148 H 197 H 152 H (70-110) mg/dL 08/28/23 Range/Units 11:15 POC Glucose (mg/dL) 167 H (70-110) mg/dL Microbiology - Last 24 Hours (Table) 08/24/23 10:00 Gram Stain - Preliminary Pleural Fluid Body Fluid Culture - Preliminary Assessment and Plan Assessment: Acute on chronic systolic congestive heart failure, secondary to fluid volume overload from missed hemodialysis. Ischemic cardiomyopathy, with an ejection fraction of 20%. Status postplacement of a automatic implantable cardiac defibrillator. Stage III chronic kidney disease, secondary to diabetic nephropathy, currently on hemodialysis, Saturday and Saturday. Acute kidney injury secondary to recently missed hemodialysis session. Recent right [id number] amputation secondary to an infected right heel diabetic ulcer. Lower extremity chronic venous insufficiency. History of chronic tobacco dependence, with underlying COPD. History of marijuana use. Type 2 diabetes mellitus, controlled with insulin. Hyperlipidemia. Moderate to severe mitral regurgitation/moderate tricuspid regurgitation, and severe pulmonary hypertension. Chronic low back pain. Essential hypertension. Obstructive sleep apnea syndrome, intermittent use of CPAP. Diabetic peripheral neuropathy. Status post right-sided thoracentesis, with nearly 1200 cc drained. Plan: Plan dated August 26, 2023. The patient will apparently have daily hemodialysis for the time being, according to nephrology. The patient is on nasal cannula at 5 L, or BiPAP, at 12/6, and 40%. The patient appears chronically ill. He continues on bronchodi lators. The patient did have a right-sided thoracentesis. The patient is currently on 5 L, or BiPAP. Labs, x-rays, medications are reviewed. The patient's overall prognosis remains guarded. He looks much older than his stated age of 53 years. We will continue to follow make recommendations along the way. Plan dated August 27, 2023. The patient is currently on hemodialysis. The plan is to remove about 3 L today. The patient's chest x-ray is reviewed. Labs, and medications were also reviewed. The patient's BiPAP settings are 12/6, and 40%. The patient is not receiving any IV fluids. I tried to have a conversation with the patient today about CODE STATUS. The patient was in and out, and really could not have an intelligent conversation about CODE STATUS, and whether or not he would want intubation with mechanical ventilation. According to the nurse, the patient's ex- wants nothing to do with the patient. Not sure that there is any other family members. Prognosis is poor. We will continue to follow, and make recommendations along the way. Plan dated August 28, 2023. The patient looks about the same today as he did yesterday. He continues on BiPAP, with settings of 13/6, and 40%. The patient had hemodialysis yesterday, with 3.1 L of fluid removed. The goal was to remove 3 L today. Labs, x-rays, and medications are reviewed. The patient's overall prognosis is not very good. An ultrasound was ordered by the primary hospital service. There is no fluid on the left. A very small pocket of 3.7 cm on the right. There was some debris in the pleural space as well. I do not believe thoracentesis would be warranted at this time. The patient is a full code. We attempted to have a conversation with him yesterday, but I do not believe he was lucid to understand the conversation, and as to whether or not he would want to be on life support. Time with Patient: Less than 30
[2023-08-28 14:47] LABS: Glucose,Whole Blood 169 mg/dL (70-110)
[2023-08-28] MEDS: DOBUTamine DRIP 500 MG in DEXTROSE/WATER 1 250ML.BAG IV SCH (14:48)
[2023-08-28 14:58] LABS: ABG Base Excess -0.4 mmol/L; ABG HCO3 27 mmol/L (21-25); ABG Oxygen Saturation 93.3 % (94-97); ABG PCO2 63 mmHg (35-45); ABG PH 7.24 (7.35-7.45); ABG PO2 80 mmHg (83-108); ABG TCO2 29 mmol/L (19-24); Allen Test Performed? Yes
[2023-08-28 15:16] LABS: Glucose,Whole Blood 158 mg/dL (70-110)
[2023-08-28] MEDS: SUCCINYLCHOLINE CHLORIDE 200 MG/10 ML VIAL IV ONE (15:25)
[2023-08-28] MEDS: CISATRACURIUM 2 MG/ML 5 ML VIAL IV ONE ×2 (15:43→15:44)
--- NOTE | 2023-08-28 16:14 | XR ---
EXAMINATION TYPE: XR chest 1V portable DATE OF EXAM: 08/28/2023 Comparison: 08/27/2023 Clinical History: 53-year-old male Tube placement, central line Findings: Left anterior chest wall AICD generator with right ventricular lead. ET tube satisfactory. NG tube lo oped once at the left upper quadrant. Right-sided double-lumen hemodialysis catheter with tips at the cavoatrial junction. Heart moderately enlarged. Extensive pleural parenchymal opacity right mid and lower lung and lesser degree of opacity retrocardiac region and left base. Mild interstitial prominen ce. Impression: 1. Satisfactory ET tube. NG tube looped once at the left upper quadrant. Right-sided hemodialysis cat heter with tips at the cavoatrial junction. 2. Moderate cardiomegaly. Possible mild pulmonary vascular congestion. 3. Possible moderate right and small left pleural effusions with adjacent atelectasis and/or consolid ation. Pleural parenchymal opacity extends up to the mid lung level on the right.
[2023-08-28 16:23] LABS: Anisocytosis Slight; Basophils # (A) 0.1 k/uL (0-0.2); Basophils % (A) 0 %; Eosinophils % (A) 0 %; HCT 33.6 % (39.0-53.0); Hypochromasia Marked; Lymphocytes # (A) 0.3 k/uL (1.0-4.8); Lymphocytes % (A) 1 %; MCH 28.3 pg (25.0-35.0); MCHC 29.9 g/dL (31.0-37.0); MCV 94.6 fL (80.0-100.0); Mean Platelet Volume 7.6; Monocytes # (A) 0.7 k/uL (0-1.0); Monocytes % (A) 3 %; Neutrophils # (A) 23.6 k/uL (1.3-7.7); Neutrophils % (A) 95 %; Platelet Count 193 k/uL (150-450); RBC 3.55 m/uL (4.30-5.90); RDW 16.6 % (11.5-15.5); WBC 24.8 k/uL (3.8-10.6)
[2023-08-28] MEDS: IPRATROPIUM-ALBUTEROL 3 ML NEB INHALATION SCH (16:32)
[2023-08-28 16:35] LABS: ABG Base Excess 0.2 mmol/L; ABG HCO3 27 mmol/L (21-25); ABG Oxygen Saturation 98.7 % (94-97); ABG PCO2 57 mmHg (35-45); ABG PH 7.28 (7.35-7.45); ABG PO2 290 mmHg (83-108); ABG TCO2 29 mmol/L (19-24)
[2023-08-28 16:35] LABS: African American GFR (CKD) 33 (>60 ml/min/1.73 sqM); Anion Gap 12 mmol/L; Blood Urea Nitrogen 24 mg/dL (9-20); Calcium 8.8 mg/dL (8.4-10.2); Carbon Dioxide 26 mmol/L (22-30); Chloride 96 mmol/L (98-107); Glucose 167 mg/dL (74-99); Magnesium 1.9 mg/dL (1.6-2.3); Non-African American GFR(CKD) 29 (>60 ml/min/1.73 sqM); Potassium 4.1 mmol/L (3.5-5.1); Sodium 134 mmol/L (137-145)
[2023-08-28 16:43] LABS: Appearance,Urine Turbid (Clear); Bacteria,Urine Few /hpf; Bilirubin,Urine Negative (Negative); Blood,Urine Large (Negative); Glucose,Urine (UA) Negative (Negative); Ketones,Urine Negative (Negative); Leukocyte Esterase,Urine Large (Negative); Mucus,Urine Occasional /hpf; Nitrite,Urine Negative (Negative); PH, Urine 5.5 (5.0-8.0); Protein,Urine 3+ (Negative); RBC,Urine 156 /hpf (0-5); WBC,Urine >182 /hpf (0-5)
[2023-08-28 16:53] LABS: Color,Urine Dark Yellow; Specific Gravity,Urine 1.028 (1.001-1.035)
[2023-08-28] MEDS: NYSTATIN 100,000 UNIT/ML SUSP 500,000 UNIT/5 ML CUP PO SCH (17:17)
[2023-08-28] MEDS: NOREPINEPHRINE 4 MG in SODIUM CHLORIDE 0.9% 250 ML IV SCH (17:17)
--- NOTE | 2023-08-28 17:23 | P.PN ---
Progress Note - Text Progress Note Date: 08/28/23 Chief Complaint: Short of breath This is a 53-year-old patient, follows with Dr. Rodríguez. Chronic stable medical condition include CHF EF less than 20%, COPD, diabetes mellitus type 2, hypertension, hyperlipidemia, obstructive sleep apnea, anxiety, AICD, lower extremity venous insufficiency. Patient had lower extremity wounds for which she followed with Dr. Kaur from vascular and ID Dr. Abbasi. Multiple admissions. Patient finally agreed to amputation for the right foot wound that was not healing.. Finally on July 26 patient underwent right above-knee amputation by Dr. Kaur from vascular. Patient was discharged to a satellite medical [facility] facility. Patient had been noncompliant with hemodialysis prior to that admission. Patient presented to our ER after being progressively increasing shortness of breath. He missed his dialysis yesterday. He became increasingly short of breath. Increasing edema. Some cough. Denies any fever and chills. Tired. Nephrology was called. Patient getting 3 L removed with dialysis today. Patient currently a resident of [facility]. Patient received midodrine today before started dialysis August 23: Tolerated breakfast well. 3 L of fluid being removed today. Patient is due for his generator change on August 28. Cardiology consulted and informed. Has edema. August 24: Oral intake good. Diet. Dialysis per nephrology. Right-sided thoracentesis 1156 cc removed. By pulmonary August 25: Tired. Congested chest. Short of breath. Pulse ox 87% on room air. August 26: Slightly less short of breath. To still present. Getting 4 L removed today. Blood pressure running in the 90s. But more awake August 27: Remains short of breath. BiPAP. Easily gets short winded. Getting dialysis again today. About 3 L plan to be removed. Some decrease in edema. Chest x-ray showing significant right-sided pleural effusion. Hopefully patient will benefit from right thoracentesis. We can have a further discussion with him about CODE STATUS in that case. Patient lives with his 20-year-old son. Dr. GIBSON from pulmonary following August 28: Remains on BiPAP. Somewhat lethargic. Did attempt to speak to the patient Yumiko CODE STATUS. I felt he started send no but given his mentation cannot be sure. Did communicate with Dr. GIBSON from pulmonary. Does not feel there is any significant fluid on the right side for thoracentesis. Dialysis today again. 2200 cc removed. Prognosis guarded. Poor oral intake. Right side could also be infiltrate given the elevated white count. Add cefepime Active Medications Acetaminophen (Acetaminophen Tab 325 Mg Tab) 650 mg PO Q6HR PRN PRN Reason: Mild Pain or Fever > 100.5 Last Admin: 08/25/23 03:18 Dose: 650 mg Hydrocodone Bitart/Acetaminophen (Hydrocodone/Apap 5-325mg 1 Each Tab) 1 each PO Q8HR [facility] Last Admin: 08/28/23 15:43 Dose: 1 each Albuterol Sulfate (Albuterol Hfa Inhaler) 2 puff INHALATION RT-QID PRN PRN Reason: Shortness Of Breath Albuterol/Ipratropium (Ipratropium-Albuterol 3 Ml Neb) 3 ml INHALATION RT-Q2H PRN PRN Reason: Shortness Of Breath Or Wheezing Last Admin: 08/25/23 03:36 Dose: 3 ml Albuterol/Ipratropium (Ipratropium-Albuterol 3 Ml Neb) 3 ml INHALATION RT-Q4H [facility] Last Admin: 08/28/23 16:32 Dose: 3 ml Alprazolam (Alprazolam 0.25 Mg Tab) 0.5 mg PO Q8H PRN PRN Reason: Anxiety Last Admin: 08/27/23 05:13 Dose: 0.5 mg Amiodarone HCl (Amiodarone 200 Mg Tab) 200 mg PO DAILY [facility] Last Admin: 08/28/23 12:49 Dose: Not Given Ascorbic Acid (Ascorbic Acid 500 Mg Tab) 1,000 mg PO DAILY [facility] Last Admin: 08/28/23 12:49 Dose: Not Given Aspirin (Aspirin 81 Mg) 81 mg PO DAILY [facility] Last Admin: 08/28/23 12:49 Dose: Not Given Calcium Acetate (Calcium Acetate 667 Mg Tab) 667 mg PO TID-W/MEALS [facility] Last Admin: 08/28/23 15:40 Dose: Not Given Calcium Carbonate/Glycine (Calcium Carbonate 500 Mg Chewable) 1,000 mg PO Q4HR PRN PRN Reason: Dyspepsia Chlorhexidine Gluconate (Chlorhexidine Gluconate 15 Ml Cup) 15 ml MUCOUS MEM BID [facility] Dextrose/Water (Dextrose 50% Syringe 50 Ml) 25 ml IVP PER PROTOCOL PRN; Protocol PRN Reason: Hypoglycemia Last Admin: 08/25/23 12:36 Dose: 25 ml Dextrose/Water (Dextrose 50% Syringe 50 Ml) 50 ml IVP PER PROTOCOL PRN; Protocol PRN Reason: Hypoglycemia Duloxetine HCl (Duloxetine Hcl 30 Mg Capsule.Dr) 30 mg PO DAILY [facility] Last Admin: 08/28/23 12:49 Dose: Not Given Famotidine (Famotidine 20 Mg Tab) 20 mg PO DAILY [facility] Last Admin: 08/28/23 12:49 Dose: Not Given Fluphenazine HCl (Fluphenazine 1 Mg Tab) 3 mg PO HS [facility] Last Admin: 08/27/23 23:35 Dose: Not Given Fluticasone Propionate (Fluticasone 50mcg/[place] Nasal 16gm) 2 spray EA NOSTRIL DAILY PRN PRN Reason: Allergy Symptoms Folic Acid (Folic Acid 1 Mg Tab) 1 mg PO DAILY [facility] Last Admin: 08/28/23 12:49 Dose: Not Given Propofol 1,000 mg/ IV Solution 100 mls @ 8.91 mls/hr IV .[id number] [facility]; Protocol Last Admin: 08/28/23 15:25 Dose: 15 mcg/kg/min, 8.91 mls/hr Norepinephrine Bitartrate 4 mg (/ Sodium Chloride) 254 mls @ 11.316 mls/hr IV .[id number] [facility]; Protocol Last Admin: 08/28/23 17:17 Dose: 0.03 mcg/kg/min, 11.316 mls/hr Insulin Aspart (Insulin Aspart (Novolog) 100 Unit/Ml Vial) 0 unit SQ Q6HR [facility]; Protocol Insulin Detemir (Insulin Detemir (Levemir) 100 Unit/Ml Syr) 10 unit SQ HS [facility] Last Admin: 08/27/23 19:54 Dose: Not Given Lactulose (Lactulose 20 Gm/30 Ml Cup) 20 gm PO DAILY PRN PRN Reason: Constipation Melatonin (Melatonin 3 Mg Tablet) 3 mg PO HS PRN PRN Reason: Insomnia Last Admin: 08/25/23 20:12 Dose: 3 mg Midodrine (Midodrine 5 Mg Tab) 10 mg PO AC-TID [facility] Last Admin: 08/28/23 15:43 Dose: 10 mg Multivitamins (Multivitamins, Thera 1 Each Tab) 1 each PO DAILY [facility] Last Admin: 08/28/23 12:49 Dose: Not Given Naloxone HCl (Naloxone 0.4 Mg/Ml 1 Ml Vial) 0.2 mg IV Q2M PRN PRN Reason: Opioid Reversal Nystatin (Nystatin 100,000 Unit/Ml Susp 500,000 Unit/5 Ml Cup) 500,000 unit PO QID [facility]; Protocol Last Admin: 08/28/23 17:17 Dose: 500,000 unit Ondansetron HCl (Ondansetron 4 Mg/2 Ml Vial) 4 mg IVP Q8HR PRN PRN Reason: Nausea And Vomiting Pantoprazole Sodium (Pantoprazole 40 Mg/10 Ml Vial) 40 mg IVP HS [facility] Petrolatum (Zinc Oxide Paste (Z-Guard) 1 Applic) 1 applic TOPICAL DAILY PRN; Protocol PRN Reason: Wound Healing Trazodone HCl (Trazodone Hcl 50 Mg Tab) 50 mg PO HS PRN PRN Reason: Agitation Social history: Lives with his 20-year-old son. Disabled. 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 Smoking 2 packs a day for most of his life . Stop drinking heavy alcohol about 20 years ago. Has done marijuana. Physical examination: VITAL SIGNS: 98.9, 101, 24, 92/58, on BiPAP GENERAL: Reclining in bed, short of breath, lethargic EYES: Pupils equal. Conjunctiva normal. HEENT: External appearance of nose and ears normal, oral cavity grossly normal. NECK: JVD raised; masses not palpable. HEART: First and second heart sounds are normal; significant edema LUNGS: Respiratory rate increased; diminished breath sounds ABDOMEN: Soft, nontender, liver spleen not palpable, no masses palpable. PSYCH: Difficult to assess NEUROLOGICAL: Cranial nerves grossly intact. Does attempt to wake up to answer questions. DERMATOLOGICAL: Right above-knee amputation. The stump is gross stitches. Left lower extremity wound INVESTIGATIONS, reviewed in the clinical context: August 28: White count 24.8 hemoglobin 10 ABG: pH 7.28 pCO2 57 BUN 24 cre atinine 2.44 August 27: Sodium 132 potassium 4.3 creatinine 2.92 August 23: White count 13.9 hemoglobin 10.9 platelets 194 potassium 5.2 BUN 62 creatinine 5.09 August 21, 2023: White count 22.8 hemoglobin 11 platelets were 89 sodium 132 potassium 5.4 BUN 83 creatinine 6.21 Troponin I 0.035. proBNP 50433 Influenza type A, type B, RSV, COVID-19: Not detected EKG tracing personally reviewed by me-normal sinus rhythm. Chest x-ray film personally reviewed by me-large right pleural effusion Chest ultrasound: Large right pleural effusion Assessment and plan: -Acute on chronic congestive heart failure nonischemic cardiomyopathy systolic dysfunction EF less than 20%: Worsening from missed hemodialysis.: Slow to respond Hemodialysis-Daily. AICD. Fluid restriction 1500 mL. Follow-up with cardiology and nephrology -Acute uremic and hypoxic encephalopathy: Not improving -Acute hypoxic respiratory failure from fluid overload/CHF.: Not improving Requiring BiPAP -Right above-knee amputation by Dr. Yared Lugo on June 2024 Follow-up with Dr. Kaur -Right pleural effusion not felt to be significant. Dr. GIBSON from pulmonary: Following -Possible right basilar pneumonia Start IV cefepime -Acute COPD exacerbation in a previous smoker Ventolin. DuoNeb-4 times daily. - AICD -Diabetes mellitus type 2 chronically on insulin, uncontrolled with [id number] Levemir 18 units subcu Diabetic diet. Accu-Cheks and sliding scale -Iron deficiency anemia aranesp -Hyperlipidemia Lipitor -End-stage kidney disease on hemodialysis Right IJ dialysis catheter -Hyponatremia-mild Fluid restriction -Chronic low back pain. Patient's had pain on and off for about 10 years. Has had prior surgery. Does not remember who did the surgery. When necessary pain medication -Hypotension. Midodrine -Obstructive sleep apnea sometimes uses CPAP machine -Diabetic peripheral neuropathy -Anxiety, depression Trazodone, Cymbalta -DJD Tylenol when necessary -AICD Due for generator change on August 28. Cardiology aware. -Lower extremity chronic venous insufficiency, with left lower extremity wounds Dr. Kaur consulted -Full code Start IV cefepime for possible right-sided pneumonia. Prognosis not good. Did attempt to speak to the patient about his CODE STATUS. Given his mental status not clear about his response. Possibly DNR but cannot be sure about the same. Past Medical History Past Medical History: Asthma, Coronary Artery Disease (CAD), Chest Pain / Angina, Heart Failure, COPD, Diabetes Mellitus, GERD/Reflux, Hyperlipidemia, Hypertension, Myocardial Infarction (MA), Pneumonia, Sleep Apnea/CPAP/BIPAP, Supraventricular Tachycardia (SVT) Additional Past Medical History / Comment(s): Ischemic cardiomyopathy, chronic CHF, SVT, IDDM type II, KAMINI with CPAP occasionally used, chronic cervical/back pain, DJD, diabetic foot wounds x 4 months. Dialysis Last Myocardial Infarction Date:: 12/11/17 History of Any Multi-Drug Resistant Organisms: MRSA Date of last positivie culture/infection: 06/15/23 MDRO Source:: Right Foot Past Surgical History: Adenoidectomy, AICD, Back Surgery, Cholecystectomy, EPS, Heart Catheterization, Pacemaker, Tonsillectomy Additional Past Surgical History / Comment(s): 12/10/17 cardiac cath, previous cardiac cath, 09/02/14 AICD/pacer, EGD/colonoscopy, low back surgery with fusion. Past Anesthesia/Blood Transfusion Reactions: Motion Sickness Additional Past Anesthesia/Blood Transfusion Reaction / Comment(s): Pt states he received blood with back surgery without reaction. Type of Cardiac Device: Permanent Pacemaker, AICD Device Placement Date:: 09-02-14 Past Psychological History: ADD/ADHD, Anxiety Smoking Status: Current every day smoker Past Alcohol Use History: Occasional Past Drug Use History: Marijuana
[2023-08-28 17:24] LABS: Glucose,Whole Blood 164 mg/dL (70-110)
[2023-08-28] MEDS: AMIODARONE 200 MG TAB PO STA (17:54)
[2023-08-28] MEDS: INSULIN ASPART (NovoLOG) 100 UNIT/ML VIAL SQ SCH (17:55)
[2023-08-28] MEDS: PANTOPRAZOLE 40 MG/10 ML VIAL IVP SCH (21:32)
[2023-08-28] MEDS: CHLORHEXIDINE GLUCONATE 15 ML CUP MUCOUS MEM SCH (21:32)
[2023-08-28] MEDS: CEFEPIME 1 GM in SODIUM CHLORIDE 0.9% 50 ML IVPB SCH (21:33)
--- NOTE | 2023-08-28 21:42 | PCN ---
PROCEDURE NOTE PULMONARY CRITICAL CARE PROCEDURE: PROCEDURE PERFORMED: Left radial arterial line. PREOPERATIVE DIAGNOSIS: Hypotension, frequent blood draws for blood gas monitoring. GANG TAILER: Dr. Steel. FINE PATCHER: First neurosurgical physician assistant, Dr. Lisa Harris. INDICATIONS: Hemodynamic monitoring. A time-out was completed verifying correct patient, procedure, site, positioning, and implant or special equipment if applicable. DESCRIPTION OF PROCEDURE: Carlos's test was performed to ensure adequate perfusion. The patient's left wrist was prepped and draped in sterile fashion. 1% Lidocaine was used to anesthetize the area. An 18G Arrow arterial line was introduced into the radial artery. The catheter was threaded over the guide wire and the needle was removed with appropriate pulsatile blood return. Blood loss was minimal. The catheter was then sutured in place to the skin and a sterile dressing applied. Perfusion to the extremity distal to the point of catheter insertion was checked and found to be adequate. The patient tolerated the procedure well and there were no complications. There was good blood return and waveform. Catheter was sutured in place. A sterile dressing was applied by the nurse. There was no immediate complication. MMODL / IJN: [id number] /
--- NOTE | 2023-08-28 21:49 | PCN ---
PROCEDURE NOTE PROCEDURE PERFORMED: A left subclavian triple-lumen catheter. PREOPERATIVE DIAGNOSES: Administration of fluids and pressors, hypotension. POSTOPERATIVE DIAGNOSES: Administration of fluids and pressors, hypotension. SALES CONTRACTOR: Dr. Steel. HYDRATOR OPERATOR: First surgical services manager, Dr. Lisa Harris. INDICATIONS: Hemodynamic monitoring/Intravenous access. A time-out was completed verifying correct patient, procedure, site, positioning, and implant(s) or special equipment if applicable. DESCRIPTION OF PROCEDURE: The patient's procedure took place in room 256. The patient was placed in a dependent position appropriate for triple lumen catheter placement based on the vein to be cannulated. The patient's left shoulder was prepped and draped in sterile fashion. 1% Lidocaine was used to anesthetize the surrounding skin area. A triple lumen 9F Cordis catheter was introduced into the left subclavian using Seldinger technique. The catheter was threaded smoothly over the guide wire and appropriate blood return was obtained. Each lumen of the catheter was evacuated of air and flushed with sterile saline. The catheter was then sutured in place to the skin and a sterile dressing applied. Perfusion to the extremity distal to the point of catheter insertion was checked and found to be adequate. There was good blood return from all 3 ports. The patient tolerated the procedure well. The catheter was sutured in place. Sterile dressing was applied by the nurse. A chest x-ray will be done. There was no immediate complication and the patient tolerated the procedure well without any difficulty. Sterile dressing was applied by the nurse. MMODL / IJN: [id number] /
[2023-08-28 22:47] LABS: Glucose,Whole Blood 196 mg/dL (70-110)
[2023-08-29 05:07] LABS: Anisocytosis Slight; Basophils # (A) 0.1 k/uL (0-0.2); Basophils % (A) 0 %; Eosinophils % (A) 0 %; HCT 33.1 % (39.0-53.0); HGB 9.7 gm/dL (13.0-17.5); Hypochromasia Marked; Lymphocytes # (A) 0.6 k/uL (1.0-4.8); Lymphocytes % (A) 1 %; MCH 27.3 pg (25.0-35.0); MCHC 29.2 g/dL (31.0-37.0); MCV 93.5 fL (80.0-100.0); Monocytes # (A) 1.4 k/uL (0-1.0); Monocytes % (A) 3 %; Neutrophils # (A) 38.7 k/uL (1.3-7.7); Neutrophils % (A) 94 %; Platelet Count 251 k/uL (150-450); RBC 3.54 m/uL (4.30-5.90); RDW 16.5 % (11.5-15.5); WBC 41.2 k/uL (3.8-10.6)
[2023-08-29 05:21] LABS: African American GFR (CKD) 25 (>60 ml/min/1.73 sqM); Anion Gap 14 mmol/L; Blood Urea Nitrogen 34 mg/dL (9-20); Calcium 9.2 mg/dL (8.4-10.2); Carbon Dioxide 24 mmol/L (22-30); Chloride 98 mmol/L (98-107); Glucose 190 mg/dL (74-99); Non-African American GFR(CKD) 22 (>60 ml/min/1.73 sqM); Potassium 3.8 mmol/L (3.5-5.1); Sodium 136 mmol/L (137-145)
[2023-08-29 05:36] LABS: Glucose,Whole Blood 230 mg/dL (70-110)
[2023-08-29 06:18] LABS: ABG Base Excess 0.5 mmol/L; ABG HCO3 26 mmol/L (21-25); ABG Oxygen Saturation 95.3 % (94-97); ABG PCO2 45 mmHg (35-45); ABG PH 7.37 (7.35-7.45); ABG PO2 74 mmHg (83-108); ABG TCO2 27 mmol/L (19-24); Allen Test Performed? Yes
--- NOTE | 2023-08-29 08:39 | XR ---
EXAMINATION TYPE: XR chest 1V portable DATE OF EXAM: 08/29/2023 6:02 AM CLINICAL INDICATION:Male, 53 years old with history of Tube placement; [facility] COMPARISON: Chest radiographs from TECHNIQUE: XR chest 1V portable Frontal view of the chest. FINDINGS: Lungs/Pleura: There is a [id number] right pleural effusion. No left pleural effusion visualize d. There is no evidence of pleural effusion, focal consolidation, or pneumothorax. Pulmonary vascularity: Unremarkable. Heart/mediastinum: Cardiomediastinal silhouette is enlarged and stable. Two lead cardiac conduction d evice overlying the left hemithorax with lead tips projecting over the right ventricle and right atri um. Musculoskeletal: No acute osseous pathology. Other findings: None Lines/Tubes: Endotracheal tube with distal tip 5.0 cm above the mary. Nasogastric tube with its distal tip and side-port projecting under the diaphragm. Right internal jugular central venous catheter with distal tip at the cavoatrial junction. IMPRESSION: 1. Appropriate placement of support tubes and line. 2. Right perihilar opacity with small moderate right pleural effusion.
--- NOTE | 2023-08-29 11:20 | P.PN ---
Subjective Patient seen in follow-up for end-stage renal disease. He is maintained on hemodialysis on Saturday schedule. Has been receiving daily dialysis this admission. Patient was intubated due to respiratory distress and transferred to the ICU. He is on Levophed. Vital signs are stable. General: Resting in bed. HEENT: Intubated. LUNGS: No audible rhonchi or wheezes. HEART: Rate and Rhythm are regular. ABDOMEN: Obese. EXTREMITITES: Right AKA noted. 1+ edema. Objective - Vital Signs Vital signs: Vital Signs Temp 98.6 F 08/29/23 08:00 Pulse 117 H 08/29/23 10:00 Resp 34 H 08/29/23 10:00 BP 112/64 08/29/23 10:00 Pulse Ox 97 08/29/23 10:00 FiO2 50 08/29/23 10:45 Intake & Output 08/28/23 08/29/23 08/29/23 18:59 06:59 18:59 Intake Total 908.861 2827.262 182 Output Total 2350 15 14 Balance -1075.802 0962.262 168 Weight 99 kg 92 kg Intake: IV 109 446 182 .9 20 60 240 80 .9 3cc/hr A-line 9 36 12 Cefepime 1 gm In Sodium 50 50 Chloride 0.9% 50 ml @ 12. 5 mls/hr IVPB Q12HR LAN Rx#:[id number] Invasive Line 5 10 30 10 Invasive Line 7 30 90 30 Intake, IV Titration 35.105 659.262 Amount DOBUTamine DRIP 500 mg In 8.91 Dextrose/Water 1 250ml. bag @ 2.5 MCG/KG/MIN 7. 425 mls/hr IV .Q24H LAN Rx#:[id number] Norepinephrine 4 mg In 20.998 487.002 Sodium Chloride 0.9% 250 ml @ 0.03 MCG/KG/MIN 11. 316 mls/hr IV .[id number] LAN Rx#:[id number] propofoL 1,000 mg In 5.197 172.260 Empty Bag 1 bag @ 15 MCG/ KG/MIN 8.91 mls/hr IV . [id number] LAN Rx#:[id number] Oral 0 Hemodialysis 400 Output: Gastric Drainage 150 Urine 0 15 14 Hemodialysis 2200 Other: Voiding Method Indwelling Catheter Indwelling Catheter Indwelling Catheter # Bowel Movements 1 1 0 ABP, PAP, CO, CI - Last Documented Arterial Blood Pressure 110/55 - Labs CBC & Chem 7: 08/29/23 04:20 08/29/23 04:20 Labs: Abnormal Lab Results - Last 24 Hours (Table) 08/28/23 08/28/23 08/28/23 Range/Units 11:15 14:46 14:54 WBC (3.8-10.6) k/uL RBC (4.30-5.90) m/uL Hgb (13.0-17.5) gm/dL Hct (39.0-53.0) % MCHC (31.0-37.0) g/dL RDW (11.5-15.5) % Neutrophils # (1.3-7.7) k/uL Lymphocytes # (1.0-4.8) k/uL Monocytes # (0-1.0) k/uL ABG pH 7.24 L (7.35-7.45) ABG pCO2 63 H (35-45) mmHg ABG pO2 80 L (83-108) mmHg ABG HCO3 27 H (21-25) mmol/L ABG Total CO2 29 H (19-24) mmol/L ABG O2 Saturation 93.3 L (94-97) % Sodium (137-145) mmol/L Chloride (98-107) mmol/L BUN (9-20) mg/dL Creatinine (0.66-1.25) mg/dL Glucose (74-99) mg/dL POC Glucose (mg/dL) 167 H 169 H (70-110) mg/dL Procalcitonin (0.02-0.09) ng/mL Urine Protein (Negative) Urine Blood (Negative) Ur Leukocyte Esterase (Negative) Urine RBC (0-5) /hpf Urine WBC (0-5) /hpf Urine WBC Clumps (None) /hpf Urine Bacteria (None) /hpf Urine Mucus (None) /hpf 08/28/23 08/28/23 08/28/23 Range/Units 15:15 15:19 16:00 WBC 24.8 H (3.8-10.6) k/uL RBC 3.55 L (4.30-5.90) m/uL Hgb 10.0 L (13.0-17.5) gm/dL Hct 33.6 L (39.0-53.0) % MCHC 29.9 L (31.0-37.0) g/dL RDW 16.6 H (11.5-15.5) % Neutrophils # 23.6 H (1.3-7.7) k/uL Lymphocytes # 0.3 L (1.0-4.8) k/uL Monocytes # (0-1.0) k/uL ABG pH (7.35-7.45) ABG pCO2 (35-45) mmHg ABG pO2 (83-108) mmHg ABG HCO3 (21-25) mmol/L ABG Total CO2 (19-24) mmol/L ABG O2 Saturation (94-97) % Sodium (137-145) mmol/L Chloride (98-107) mmol/L BUN (9-20) mg/dL Creatinine (0.66-1.25) mg/dL Glucose (74-99) mg/dL POC Glucose (mg/dL) 158 H (70-110) mg/dL Procalcitonin (0.02-0.09) ng/mL Urine Protein 3+ H (Negative) Urine Blood Large H (Negative) Ur Leukocyte Esterase Large H (Negative) Urine RBC 156 H (0-5) /hpf Urine WBC >182 H (0-5) /hpf Urine WBC Clumps Many H (None) /hpf Urine Bacteria Few H (None) /hpf Urine Mucus Occasional H (None) /hpf 08/28/23 08/28/23 08/28/23 Range/Units 16:00 16:31 17:23 WBC (3.8-10.6) k/uL RBC (4.30-5.90) m/uL Hgb (13.0-17.5) gm/dL Hct (39.0-53.0) % MCHC (31.0-37.0) g/dL RDW (11.5-15.5) % Neutrophils # (1.3-7.7) k/uL Lymphocytes # (1.0-4.8) k/uL Monocytes # (0-1.0) k/uL ABG pH 7.28 L (7.35-7.45) ABG pCO2 57 H (35-45) mmHg ABG pO2 290 H (83-108) mmHg ABG HCO3 27 H (21-25) mmol/L ABG Total CO2 29 H (19-24) mmol/L ABG O2 Saturation 98.7 H (94-97) % Sodium 134 L (137-145) mmol/L Chloride 96 L (98-107) mmol/L BUN 24 H (9-20) mg/dL Creatinine 2.44 H (0.66-1.25) mg/dL Glucose 167 H (74-99) mg/dL POC Glucose (mg/dL) 164 H (70-110) mg/dL Procalcitonin (0.02-0.09) ng/mL Urine Protein (Negative) Urine Blood (Negative) Ur Leukocyte Esterase (Negative) Urine RBC (0-5) /hpf Urine WBC (0-5) /hpf Urine WBC Clumps (None) /hpf Urine Bacteria (None) /hpf Urine Mucus (None) /hpf 08/28/23 08/28/23 08/29/23 Range/Units 18:40 22:45 04:20 WBC 41.2 H (3.8-10.6) k/uL RBC 3.54 L (4.30-5.90) m/uL Hgb 9.7 L (13.0-17.5) gm/dL Hct 33.1 L (39.0-53.0) % MCHC 29.2 L (31.0-37.0) g/dL RDW 16.5 H (11.5-15.5) % Neutrophils # 38.7 H (1.3-7.7) k/uL Lymphocytes # 0.6 L (1.0-4.8) k/uL Monocytes # 1.4 H (0-1.0) k/uL ABG pH (7.35-7.45) ABG pCO2 (35-45) mmHg ABG pO2 (83-108) mmHg ABG HCO3 (21-25) mmol/L ABG Total CO2 (19-24) mmol/L ABG O2 Saturation (94-97) % Sodium (137-145) mmol/L Chloride (98-107) mmol/L BUN (9-20) mg/dL Creatinine (0.66-1.25) mg/dL Glucose (74-99) mg/dL POC Glucose (mg/dL) 196 H (70-110) mg/dL Procalcitonin 2.00 H (0.02-0.09) ng/mL Urine Protein (Negative) Urine Blood (Negative) Ur Leukocyte Esterase (Negative) Urine RBC (0-5) /hpf Urine WBC (0-5) /hpf Urine WBC Clumps (None) /hpf Urine Bacteria (None) /hpf Urine Mucus (None) /hpf 08/29/23 08/29/23 08/29/23 Range/Units 04:20 05:35 06:06 WBC (3.8-10.6) k/uL RBC (4.30-5.90) m/uL Hgb (13.0-17.5) gm/dL Hct (39.0-53.0) % MCHC (31.0-37.0) g/dL RDW (11.5-15.5) % Neutrophils # (1.3-7.7) k/uL Lymphocytes # (1.0-4.8) k/uL Monocytes # (0-1.0) k/uL ABG pH (7.35-7.45) ABG pCO2 (35-45) mmHg ABG pO2 74 L (83-108) mmHg ABG HCO3 26 H (21-25) mmol/L ABG Total CO2 27 H (19-24) mmol/L ABG O2 Saturation (94-97) % Sodium 136 L (137-145) mmol/L Chloride (98-107) mmol/L BUN 34 H (9-20) mg/dL Creatinine 3.09 H (0.66-1.25) mg/dL Glucose 190 H (74-99) mg/dL POC Glucose (mg/dL) 230 H (70-110) mg/dL Procalcitonin (0.02-0.09) ng/mL Urine Protein (Negative) Urine Blood (Negative) Ur Leukocyte Esterase (Negative) Urine RBC (0-5) /hpf Urine WBC (0-5) /hpf Urine WBC Clumps (None) /hpf Urine Bacteria (None) /hpf Urine Mucus (None) /hpf Microbiology - Last 24 Hours (Table) 08/24/23 10:00 Gram Stain - Final Pleural Fluid Body Fluid Culture - Final Assessment and Plan Plan: Assessment: 1. End-stage renal disease maintained on hemodialysis on Saturday schedule. 2. Volume overload. Improving with ultrafiltration. 3. Chronic kidney disease mineral bone disease maintained on PhosLo. Phosphorus level 3.8 dated August 26, 2023. 4. Diabetes mellitus. 5. Acute on chronic systolic CHF with ejection fraction of 15 to 20% with m oderate mitral and tricuspid regurgitation and moderate pulmonary hypertension. 6. Acute hypoxic respiratory failure. Intubated. Plan: Currently seen while undergoing hemodialysis. Continue with daily dialysis. Maintain midodrine. Wean Levophed. Prognosis guarded. Hospice should be considered. Guardianship being obtained.
[2023-08-29 11:33] LABS: Glucose,Whole Blood 175 mg/dL (70-110)
--- NOTE | 2023-08-29 11:37 | P.PN ---
Subjective Progress Note Date: 08/29/23 Principal diagnosis: Respiratory failure. Acute on chronic systolic congestive heart failure with fluid overload and right-sided pleural effusion This is a pleasant 53-year-old male patient with a known history of asthma, neck and ongoing tobacco dependence, marijuana use, coronary artery disease, congestive heart failure, chronic obstructive pulmonary disease, diabetes lambert itus, hyperlipidemia, hypertension, ischemic cardiomyopathy with previous AICD placement, nonhealing ulceration of the right heel with subsequent [id number] amputation on July 26, 2023, chronic kidney disease receiving hemodialysis Saturday, diabetes mellitus, obstructive sleep apnea with CPAP use. He missed his dialysis on Saturday due to having an important meeting to go to. He presented here late last night with worsening shortness of breath and dyspnea on exertion. He also had increased lower extremity edema. Chest x-ray revealed a large right pleural effusion. White count platelets 189. INR 1.4. Sodium 132. Potassium 5.4. Bicarb 23. BUN 83. Creatinine 6.21. Glucose 188. Pro BNP level 72,100. Troponin 0.035. Viral screen negative. Ultrasound of the right chest revealed a 10.6 cm pocket however there was lung tissue seen within the fluid. He is seen today in consultation in the emergency department. He is currently sitting up on the stretcher. Awake and alert in no acute distress. Only maintaining O2 saturation in the 90s on 3 L/min per nasal cannula. Has been afebrile. Hemodynamically stable Patient was reevaluated today on 08/23/2023, he is resting in bed, receiving hemodialysis, chest x-ray this morning continues to show good sized right-sided pleural effusion however the ultrasound showed lung tissue which would likely interfere with the thoracentesis hence I am recommending for now medical therapy/hemodialysis and ultrafiltration. If no improvement could consider repeat ultrasound and proceed with right-sided thoracentesis. Patient does not seem to be in distress, he is actually on 3 L nasal cannula, and his O2 satur ation is in the 90s. Blood pressure is stable. CBC is relatively normal basic metabolic profile is normal BUN is 62 creatinine 5.09 Patient was reevaluated today on 08/25/2023, patient underwent right-sided thoracentesis yesterday, doing well today, no coughing no wheezing, on 3 L nasal cannula with O2 sats of 98%. Patient is scheduled to have hemodialysis again today. The pleural effusion I drained yesterday came back to be exudative in nature, cultures are pending cytology is pending. BBC count today is 11.3 hemoglobin is 11 basic metabolic profile is normal BUN is 40 creatinine 3.46 Gr am stain on the pleural effusion is negative Progress note dated August 26, 2023. The patient appears to be doing relatively well. The patient is currently undergoing hemodialysis. The plan is to remove 4 L of fluid today. According to the nephrology nurse, the patient is going to have daily hemodialysis. Currently, he is on 5 L nasal cannula. He is not manifesting any signs or symptoms of respiratory distress. In addition, the patient can use BiPAP, with settings of 12/6, and 40%. No new labs today other than a phosphorus of 3.8, and a glucose of 119. Chest x-ray shows ongoing pulmonary vascular congestion, and a moderate right-sided pleural effusion, with some basilar atelectasis. Progress note dated August 27, 2023. 53-year-old male seen in room 370. He is currently undergoing hemodialysis. The patient could not sustain himself on nasal cannula, so is back on BiPAP, wi th settings of 12/6, and 40%. The plan for hemodialysis today is to remove 3 L of fluid. The patient is not receiving any IV fluids either. Labs today include a sodium 132, potassium 4.3, chloride 96, CO2 23, anion gap 13, BUN 28, creatinine 2.92. Glucose is 129 with a calcium of 8.9. Chest x-ray from today shows a large right-sided pleural effusion, with adjacent atelectasis. In addition, there is evidence of vascular overload. Progress note dated August 28, 2023. 53-year-old male seen in room 370. The patient is currently undergoing hemodialysis. He is currently on BiPAP, with settings of 13/6 and 40%. The plan for hemodialysis today is removal of 3 L of fluid. Yesterday, August 27, he had 3.1 L of fluid removed. The patient had an ultrasound of his chest ordered by the primary service. There is a small pocket of fluid on the right, only measuring 3.7 cm. There appears to be some debris in the pleural space as well. The left pleural space has no fluid. We tried to have a conversation with the patient yesterday about CODE STATUS, but I do not believe he was lucid enough to understand the conversation. Current labs today include a glucose of 167. Labs from yesterday, reviewed. His BUN and creatinine from yesterday was 28 and 2.92. Progress note dated August 29, 2023. 53-year-old male who developed acute respiratory failure yesterday, requiring intubation and mechanical ventilation. The patient was transferred to the intensive care unit. A left subclavian triple-lumen catheter was placed, as well as a left radial arterial line. Currently, the patient remains on the mechanical ventilator. Settings include volume assist-control, rate 28, tidal volume 450, FiO2 50%, PEEP of 5. Blood gases show pO2 of 74, pCO2 of 45, pH 7.37. The patient is on propofol at 25 mcg/kg/min, saline at 20 cc an hour, and norepinephrine at 11 mcg/min. The patient's procalcitonin level was 2. The patient is on cefepime. Tube feedings will be started today. White count is 41.2, hemoglobin 9.7, hematocrit 33.1, and platelet count 251,000. Sodium 136, potassium 3.8, chloride 98, CO2 24, anion gap 14, BUN 34, creatinine 3.09. Calcium is 9.2. Glucose is 175. Pleural fluid analysis is negative. Chest x- ray shows some minimal perihilar opacity on the right side, and a small right- sided pleural effusion. Objective - Vital Signs Vital signs: Vital Signs Temp 98.6 F 08/29/23 08:00 Pulse 117 H 08/29/23 11:24 Resp 34 H 08/29/23 10:00 BP 112/64 08/29/23 10:00 Pulse Ox 97 08/29/23 10:00 FiO2 50 08/29/23 10:45 Intake & Output 08/28/23 08/29/23 08/29/23 18:59 06:59 18:59 Intake Total 086.987 2832.262 253.775 Output Total 2350 15 14 Balance -2909.052 9018.262 239.775 Weight 99 kg 92 kg 92 kg Intake: IV 109 446 182 .9 20 60 240 80 .9 3cc/hr A-line 9 36 12 Cefepime 1 gm In Sodium 50 50 Chloride 0.9% 50 ml @ 12. 5 mls/hr IVPB Q12HR LAN Rx#:[id number] Invasive Line 5 10 30 10 Invasive Line 7 30 90 30 Intake, IV Titration 35.105 659.262 71.775 Amount DOBUTamine DRIP 500 mg In 8.91 Dextrose/Water 1 250ml. bag @ 2.5 MCG/KG/MIN 7. 425 mls/hr IV .Q24H LAN Rx#:[id number] Norepinephrine 4 mg In 20.998 487.002 Sodium Chloride 0.9% 250 ml @ 0.03 MCG/KG/MIN 11. 316 mls/hr IV .[id number] LAN Rx#:[id number] propofoL 1,000 mg In 5.197 172.260 71.775 Empty Bag 1 bag @ 15 MCG/ KG/MIN 8.91 mls/hr IV . [id number] LAN Rx#:[id number] Oral 0 Hemodialysis 400 Output: Gastric Drainage 150 Urine 0 15 14 Hemodialysis 2200 Other: Voiding Method Indwelling Catheter Indwelling Catheter Indwelling Catheter # Bowel Movements 1 1 0 ABP, PAP, CO, CI - Last Documented Arterial Blood Pressure 110/55 - Exam No acute distress, sedated, with an orally placed endotracheal tube, and NG tube. HEENT examination is grossly unremarkable. Neck supple. Full range of motion. No adenopathy thyromegaly or neck vein distention. Cardiovascular examination reveals regular rhythm rate. S1-S2 normal. No S3 or S4. No discernible murmur noted. Heart rate 112 bpm. Heart sounds are distant. Lungs reveal bilateral crackles and rhonchi. Breath sounds are equal bilaterally. No wheezes. Saturations are 97% on the ventilator. Abdomen is soft, but obese. Bowel sounds are noted. Extremities are intact. No cyanosis or clubbing. Bilateral lower extremity edema is noted. Skin is without rash or lesion. Neurologic examination cannot be assessed at this time. - Labs CBC & Chem 7: 08/29/23 04:20 08/29/23 04:20 Labs: Abnormal Lab Results - Last 24 Hours (Table) 08/28/23 08/28/23 08/28/23 Range/Units 14:46 14:54 15:15 WBC (3.8-10.6) k/uL RBC (4.30-5.90) m/uL Hgb (13.0-17.5) gm/dL Hct (39.0-53.0) % MCHC (31.0-37.0) g/dL RDW (11.5-15.5) % Neutrophils # (1.3-7.7) k/uL Lymphocytes # (1.0-4.8) k/uL Monocytes # (0-1.0) k/uL ABG pH 7.24 L (7.35-7.45) ABG pCO2 63 H (35-45) mmHg ABG pO2 80 L (83-108) mmHg ABG HCO3 27 H (21-25) mmol/L ABG Total CO2 29 H (19-24) mmol/L ABG O2 Saturation 93.3 L (94-97) % Sodium (137-145) mmol/L Chloride (98-107) mmol/L BUN (9-20) mg/dL Creatinine (0.66-1.25) mg/dL Glucose (74-99) mg/dL POC Glucose (mg/dL) 169 H 158 H (70-110) mg/dL Procalcitonin (0.02-0.09) ng/mL Urine Protein (Negative) Urine Blood (Negative) Ur Leukocyte Esterase (Negative) Urine RBC (0-5) /hpf Urine WBC (0-5) /hpf Urine WBC Clumps (None) /hpf Urine Bacteria (None) /hpf Urine Mucus (None) /hpf 08/28/23 08/28/23 08/28/23 Range/Units 15:19 16:00 16:00 WBC 24.8 H (3.8-10.6) k/uL RBC 3.55 L (4.30-5.90) m/uL Hgb 10.0 L (13.0-17.5) gm/dL Hct 33.6 L (39.0-53.0) % MCHC 29.9 L (31.0-37.0) g/dL RDW 16.6 H (11.5-15.5) % Neutrophils # 23.6 H (1.3-7.7) k/uL Lymphocytes # 0.3 L (1.0-4.8) k/uL Monocytes # (0-1.0) k/uL ABG pH (7.35-7.45) ABG pCO2 (35-45) mmHg ABG pO2 (83-108) mmHg ABG HCO3 (21-25) mmol/L ABG Total CO2 (19-24) mmol/L ABG O2 Saturation (94-97) % Sodium 134 L (137-145) mmol/L Chloride 96 L (98-107) mmol/L BUN 24 H (9-20) mg/dL Creatinine 2.44 H (0.66-1.25) mg/dL Glucose 167 H (74-99) mg/dL POC Glucose (mg/dL) (70-110) mg/dL Procalcitonin (0.02-0.09) ng/mL Urine Protein 3+ H (Negative) Urine Blood Large H (Negative) Ur Leukocyte Esterase Large H (Negative) Urine RBC 156 H (0-5) /hpf Urine WBC >182 H (0-5) /hpf Urine WBC Clumps Many H (None) /hpf Urine Bacteria Few H (None) /hpf Urine Mucus Occasional H (None) /hpf 08/28/23 08/28/23 08/28/23 Range/Units 16:31 17:23 18:40 WBC (3.8-10.6) k/uL RBC (4.30-5.90) m/uL Hgb (13.0-17.5) gm/dL Hct (39.0-53.0) % MCHC (31.0-37.0) g/dL RDW (11.5-15.5) % Neutrophils # (1.3-7.7) k/uL Lymphocytes # (1.0-4.8) k/uL Monocytes # (0-1.0) k/uL ABG pH 7.28 L (7.35-7.45) ABG pCO2 57 H (35-45) mmHg ABG pO2 290 H (83-108) mmHg ABG HCO3 27 H (21-25) mmol/L ABG Total CO2 29 H (19-24) mmol/L ABG O2 Saturation 98.7 H (94-97) % Sodium (137-145) mmol/L Chloride (98-107) mmol/L BUN (9-20) mg/dL Creatinine (0.66-1.25) mg/dL Glucose (74-99) mg/dL POC Glucose (mg/dL) 164 H (70-110) mg/dL Procalcitonin 2.00 H (0.02-0.09) ng/mL Urine Protein (Negative) Urine Blood (Negative) Ur Leukocyte Esterase (Negative) Urine RBC (0-5) /hpf Urine WBC (0-5) /hpf Urine WBC Clumps (None) /hpf Urine Bacteria (None) /hpf Urine Mucus (None) /hpf 08/28/23 08/29/23 08/29/23 Range/Units 22:45 04:20 04:20 WBC 41.2 H (3.8-10.6) k/uL RBC 3.54 L (4.30-5.90) m/uL Hgb 9.7 L (13.0-17.5) gm/dL Hct 33.1 L (39.0-53.0) % MCHC 29.2 L (31.0-37.0) g/dL RDW 16.5 H (11.5-15.5) % Neutrophils # 38.7 H (1.3-7.7) k/uL Lymphocytes # 0.6 L (1.0-4.8) k/uL Monocytes # 1.4 H (0-1.0) k/uL ABG pH (7.35-7.45) ABG pCO2 (35-45) mmHg ABG pO2 (83-108) mmHg ABG HCO3 (21-25) mmol/L ABG Total CO2 (19-24) mmol/L ABG O2 Saturation (94-97) % Sodium 136 L (137-145) mmol/L Chloride (98-107) mmol/L BUN 34 H (9-20) mg/dL Creatinine 3.09 H (0.66-1.25) mg/dL Glucose 190 H (74-99) mg/dL POC Glucose (mg/dL) 196 H (70-110) mg/dL Procalcitonin (0.02-0.09) ng/mL Urine Protein (Negative) Urine Blood (Negative) Ur Leukocyte Esterase (Negative) Urine RBC (0-5) /hpf Urine WBC (0-5) /hpf Urine WBC Clumps (None) /hpf Urine Bacteria (None) /hpf Urine Mucus (None) /hpf 08/29/23 08/29/23 Range/Units 05:35 06:06 WBC (3.8-10.6) k/uL RBC (4.30-5.90) m/uL Hgb (13.0-17.5) gm/dL Hct (39.0-53.0) % MCHC (31.0-37.0) g/dL RDW (11.5-15.5) % Neutrophils # (1.3-7.7) k/uL Lymphocytes # (1.0-4.8) k/uL Monocytes # (0-1.0) k/uL ABG pH (7.35-7.45) ABG pCO2 (35-45) mmHg ABG pO2 74 L (83-108) mmHg ABG HCO3 26 H (21-25) mmol/L ABG Total CO2 27 H (19-24) mmol/L ABG O2 Saturation (94-97) % Sodium (137-145) mmol/L Chloride (98-107) mmol/L BUN (9-20) mg/dL Creatinine (0.66-1.25) mg/dL Glucose (74-99) mg/dL POC Glucose (mg/dL) 230 H (70-110) mg/dL Procalcitonin (0.02-0.09) ng/mL Urine Protein (Negative) Urine Blood (Negative) Ur Leukocyte Esterase (Negative) Urine RBC (0-5) /hpf Urine WBC (0-5) /hpf Urine WBC Clumps (None) /hpf Urine Bacteria (None) /hpf Urine Mucus (None) /hpf Microbiology - Last 24 Hours (Table) 08/24/23 10:00 Gram Stain - Final Pleural Fluid Body Fluid Culture - Final Assessment and Plan Assessment: Acute hypoxemic and hypercapnic respiratory failure, S/P intubation, and mechanical ventilation, on August 28, 2023. Acute on chronic systolic congestive heart failure, secondary to fluid volume overload from missed hemodialysis. Ischemic cardiomyopathy, with an ejection fraction of 20%. Status postplacement of a automatic implantable cardiac defibrillator. Stage III chronic kidney disease, secondary to diabetic nephropathy, currently on hemodialysis, Saturday and Saturday. Acute kidney injury secondary to recently missed hemodialysis session. Recent right pjirs-[id number]-wqhi amputation secondary to an infected right heel diabetic ulcer. Lower extremity chronic venous insufficiency. History of chronic tobacco dependence, with underlying COPD. History of marijuana use. Type 2 diabetes mellitus, controlled with insulin. Hyperlipidemia. Moderate to severe mitral regurgitation/moderate tricuspid regurgitation, and severe pulmonary hypertension. Chronic low back pain. Essential hypertension. Obstructive sleep apnea syndrome, intermittent use of CPAP. Diabetic peripheral neuropathy. Status post right-sided thoracentesis, with nearly 1200 cc drained. Plan: Plan dated August 26, 2023. The patient will apparently have daily hemodialysis for the time being, according to nephrology. The patient is on nasal cannula at 5 L, or BiPAP, at 12/6, and 40%. The patient appears chronically ill. He continues on bronchodilators. The patient did have a right-sided thoracentesis. The patient is currently on 5 L, or BiPAP. Labs, x-rays, medications are reviewed. The patient's overall prognosis remains guarded. He looks much older than his stated age of 53 years. We will continue to follow make recommendations along the way. Plan dated August 27, 2023. The patient is currently on hemodialysis. The plan is to remove about 3 L today. The patient's chest x-ray is reviewed. Labs, and medications were also reviewed. The patient's BiPAP settings are 12/6, and 40%. The patient is not receiving any IV fluids. I tried to have a conversation with the patient today about CODE STATUS. The patient was in and out, and really could not have an intelligent conversation about CODE STATUS, and whether or not he would want intubation with mechanical ventilation. According to the nurse, the patient's ex- wants nothing to do with the patient. Not sure that there is any other family members. Prognosis is poor. We will continue to follow, and make recommendations along the way. Plan dated August 28, 2023. The patient looks about the same today as he did yesterday. He continues on BiPAP, with settings of 13/6, and 40%. The patient had hemodialysis yesterday, with 3.1 L of fluid removed. The goal was to remove 3 L today. Labs, x-rays, and medications are reviewed. The patient's overall prognosis is not very good. An ultrasound was ordered by the primary hospital service. There is no fluid on the left. A very small pocket of 3.7 cm on the right. There was some debris in the pleural space as well. I do not believe thoracentesis would be warranted at this time. The patient is a full code. We attempted to have a conversation with him yesterday, but I do not believe he was lucid to understand the conversation, and as to whether or not he would want to be on life support. Plan dated August 29, 2023. Yesterday, the patient developed acute hypoxemic and hypercapnic respiratory failure. The patient was transferred down to the intensive care unit, where he was intubated by anesthesia. A left subclavian triple-lumen catheter was placed, as well as a left radial arterial line. The patient remains on the ventilator. He is on propofol at 25 mcg/kg/min, saline at 20 cc an hour, norepinephrine at 11 mcg/min. Will start tube feedings today. His procalcitonin level was 2. He is on cefepime. Labs, x-rays, and medications are reviewed. The patient's overall prognosis remains rather poor. Unfortunately, there were no family members available. We will continue to follow the patient, make recommendations along the way. Prognosis is poor. Time with Patient: Greater than 30
--- NOTE | 2023-08-29 16:19 | P.PN ---
Progress Note - Text Progress Note Date: 08/29/23 Chief Complaint: Short of breath This is a 53-year-old patient, follows with Dr. Rodríguez. Chronic stable medical condition include CHF EF less than 20%, COPD, diabetes mellitus type 2, hypertension, hyperlipidemia, obstructive sleep apnea, anxiety, AICD, lower extremity venous insufficiency. Patient had lower extremity wounds for which she followed with Dr. Kaur from vascular and ID Dr. Abbasi. Multiple admissions. Patient finally agreed to amputation for the right foot wound that was not healing.. Finally on July 26 patient underwent right above-knee amputation by Dr. Kaur from vascular. Patient was discharged to a [facility] facility. Patient had been noncompliant with hemodialysis prior to that admission. Patient presented to our ER after being progressively increasing shortness of breath. He missed his dialysis yesterday. He became increasingly short of breath. Increasing edema. Some cough. Denies any fever and chills. Tired. Nephrology was called. Patient getting 3 L removed with dialysis today. Patient currently a resident of [facility]. Patient received midodrine today before started dialysis August 23: Tolerated breakfast well. 3 L of fluid being removed today. Patient is due for his generator change on August 28. Cardiology consulted and informed. Has edema. August 24: Oral intake good. Diet. Dialysis per nephrology. Right-sided thoracentesis 1156 cc removed. By pulmonary August 25: Tired. Congested chest. Short of breath. Pulse ox 87% on room air. August 26: Slightly less short of breath. To still present. Getting 4 L removed today. Blood pressure running in the 90s. But more awake August 27: Remains short of breath. BiPAP. Easily gets short winded. Getting dialysis again today. About 3 L plan to be removed. Some decrease in edema. Chest x-ray showing significant right-sided pleural effusion. Hopefully patient will benefit from right thoracentesis. We can have a further discussion with him about CODE STATUS in that case. Patient lives with his 20-year-old son. Dr. GIBSON from pulmonary following August 28: Remains on BiPAP. Somewhat lethargic. Did attempt to speak to the patient Yumiko CODE STATUS. I felt he started send no but given his mentation cannot be sure. Did communicate with Dr. GIBSON from pulmonary. Does not feel there is any significant fluid on the right side for thoracentesis. Dialysis today again. 2200 cc removed. Prognosis guarded. Poor oral intake. Right side could also be infiltrate given the elevated white count. Add cefepime August 29: Patient was moved to the ICU yesterday for further respiratory distr ess. Intubated. Patient on IV propofol and Levophed. On ventilator support. Spoke to the nurse to see if he can get the local authorities/progress to contact patient's son and have him come in. Patient's ex- is completely estranged from him. Has no other known family. I discussed with Dr. Mares from nephrology. We both agree that patient's prognosis is very poor. And hospice would be appropriate. Active Medications Acetaminophen (Acetaminophen Tab 325 Mg Tab) 650 mg PO Q6HR PRN PRN Reason: Mild Pain or Fever > 100.5 Last Admin: 08/25/23 03:18 Dose: 650 mg Hydrocodone Bitart/Acetaminophen (Hydrocodone/Apap 5-325mg 1 Each Tab) 1 each PO Q8HR [facility] Last Admin: 08/29/23 16:12 Dose: 1 each Albuterol Sulfate (Albuterol Hfa Inhaler) 2 puff INHALATION RT-QID PRN PRN Reason: Shortness Of Breath Albuterol/Ipratropium (Ipratropium-Albuterol 3 Ml Neb) 3 ml INHALATION RT-Q2H PRN PRN Reason: Shortness Of Breath Or Wheezing Last Admin: 08/25/23 03:36 Dose: 3 ml Albuterol/Ipratropium (Ipratropium-Albuterol 3 Ml Neb) 3 ml INHALATION RT-Q4H [facility] Last Admin: 08/29/23 15:22 Dose: 3 ml Alprazolam (Alprazolam 0.25 Mg Tab) 0.5 mg PO Q8H PRN PRN Reason: Anxiety Last Admin: 08/27/23 05:13 Dose: 0.5 mg Amiodarone HCl (Amiodarone 200 Mg Tab) 200 mg PO DAILY [facility] Last Admin: 08/29/23 08:10 Dose: 200 mg Ascorbic Acid (Ascorbic Acid 500 Mg Tab) 1,000 mg PO DAILY [facility] Last Admin: 08/29/23 08:10 Dose: 1,000 mg Aspirin (Aspirin 81 Mg) 81 mg PO DAILY [facility] Last Admin: 08/29/23 08:10 Dose: 81 mg Calcium Acetate (Calcium Acetate 667 Mg Tab) 667 mg PO TID-W/MEALS [facility] Last Admin: 08/29/23 16:11 Dose: 667 mg Calcium Carbonate/Glycine (Calcium Carbonate 500 Mg Chewable) 1,000 mg PO Q4HR PRN PRN Reason: Dyspepsia Chlorhexidine Gluconate (Chlorhexidine Gluconate 15 Ml Cup) 15 ml MUCOUS MEM BID [facility] Last Admin: 08/29/23 08:10 Dose: 15 ml Dextrose/Water (Dextrose 50% Syringe 50 Ml) 25 ml IVP PER PROTOCOL PRN; Protocol PRN Reason: Hypoglycemia Last Admin: 08/25/23 12:36 Dose: 25 ml Dextrose/Water (Dextrose 50% Syringe 50 Ml) 50 ml IVP PER PROTOCOL PRN; Protocol PRN Reason: Hypoglycemia Duloxetine HCl (Duloxetine Hcl 30 Mg Capsule.Dr) 30 mg PO DAILY [facility] Last Admin: 08/29/23 09:25 Dose: 30 mg Famotidine (Famotidine 20 Mg Tab) 20 mg PO DAILY [facility] Last Admin: 08/29/23 08:10 Dose: 20 mg Fluphenazine HCl (Fluphenazine 1 Mg Tab) 3 mg PO HS [facility] Last Admin: 08/28/23 22:37 Dose: 3 mg Fluticasone Propionate (Fluticasone 50mcg/Friendship Nasal 16gm) 2 spray EA NOSTRIL DAILY PRN PRN Reason: Allergy Symptoms Folic Acid (Folic Acid 1 Mg Tab) 1 mg PO DAILY [facility] Last Admin: 08/29/23 08:10 Dose: 1 mg Propofol 1,000 mg/ IV Solution 100 mls @ 8.91 mls/hr IV .[id number] [facility]; Protocol Last Admin: 08/29/23 11:20 Dose: 25 mcg/kg/min, 14.85 mls/hr Norepinephrine Bitartrate 4 mg (/ Sodium Chloride) 254 mls @ 11.316 mls/hr IV .[id number] [facility]; Protocol Last Admin: 08/29/23 13:47 Dose: 0.13 mcg/kg/min, 49.035 mls/hr Cefepime HCl 1 gm/ Sodium (Chloride) 50 mls @ 12.5 mls/hr IVPB Q12HR [facility]; Protocol Last Admin: 08/29/23 08:10 Dose: 12.5 mls/hr Insulin Aspart (Insulin Aspart (Novolog) 100 Unit/Ml Vial) 0 unit SQ Q6HR [facility]; Protocol Last Admin: 08/29/23 12:12 Dose: 2 unit Insulin Detemir (Insulin Detemir (Levemir) 100 Unit/Ml Syr) 10 unit SQ HS [facility] Last Admin: 08/28/23 21:46 Dose: 10 unit Lactulose (Lactulose 20 Gm/30 Ml Cup) 20 gm PO DAILY PRN PRN Reason: Constipation Melatonin (Melatonin 3 Mg Tablet) 3 mg PO HS PRN PRN Reason: Insomnia Last Admin: 08/25/23 20:12 Dose: 3 mg Midodrine (Midodrine 5 Mg Tab) 10 mg PO AC-TID [facility] Last Admin: 08/29/23 16:11 Dose: 10 mg Multivitamins (Multivitamins, Thera 1 Each Tab) 1 each PO DAILY [facility] Last Admin: 08/29/23 08:10 Dose: 1 each Naloxone HCl (Naloxone 0.4 Mg/Ml 1 Ml Vial) 0.2 mg IV Q2M PRN PRN Reason: Opioid Reversal Nystatin (Nystatin 100,000 Unit/Ml Susp 500,000 Unit/5 Ml Cup) 500,000 unit PO QID [facility]; Protocol Last Admin: 08/29/23 13:36 Dose: 500,000 unit Ondansetron HCl (Ondansetron 4 Mg/2 Ml Vial) 4 mg IVP Q8HR PRN PRN Reason: Nausea And Vomiting Pantoprazole Sodium (Pantoprazole 40 Mg/10 Ml Vial) 40 mg IVP HS [facility] Last Admin: 08/28/23 21:32 Dose: 40 mg Petrolatum (Zinc Oxide Paste (Z-Guard) 1 Applic) 1 applic TOPICAL DAILY PRN; Protocol PRN Reason: Wound Healing Trazodone HCl (Trazodone Hcl 50 Mg Tab) 50 mg PO HS PRN PRN Reason: Agitation Social history: Lives with his 20-year-old son. Disabled. 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 Smoking 2 packs a day for most of his life . Stop drinking heavy alcohol about 20 years ago. Has done marijuana. Physical examination: VITAL SIGNS: 99.6, 110, 30, 95/54, on the ventilator GENERAL: Intubated sedated EYES: Pupils equal. Conjunctiva normal. HEENT: External appearance of nose and ears normal, ET tube NECK: JVD raised; masses not palpable. HEART: First and second heart sounds are normal; significant edema LUNGS: Respiratory rate increased; diminished breath sounds ABDOMEN: Soft, nontender, liver spleen not palpable, no masses palpable. PSYCH: Patient sedated NEUROLOGICAL: Patient sedated DERMATOLOGICAL: Right above-knee amputation. Left lower extremity wound INVESTIGATIONS, reviewed in the clinical context: August 29: White count 41.2 hemoglobin 9.7 platelets 251 potassium 3.8 BUN 34 creatinine 3.09 August 28: White count 24.8 hemoglobin 10 ABG: pH 7.28 pCO2 57 BUN 24 creatinine 2.44 August 27: Sodium 132 potassium 4.3 creatinine 2.92 August 23: White count 13.9 hemoglobin 10.9 platelets 194 potassium 5.2 BUN 62 creatinine 5.09 August 21, 2023: White count 22.8 hemoglobin 11 platelets were 89 sodium 132 potassium 5.4 BUN 83 creatinine 6.21 Troponin I 0.035. proBNP 53576 Influenza type A, type B, RSV, COVID-19: Not detected EKG tracing personally reviewed by me-normal sinus rhythm. Chest x-ray film personally reviewed by me-large right pleural effusion Chest ultrasound: Large right pleural effusion Assessment and plan: -Acute on chronic congestive heart failure nonischemic cardiomyopathy systolic dysfunction EF less than 20%: Worsening from missed hemodialysis.: Slow to respond Hemodialysis-Daily. AICD. Fluid restriction 1500 mL. Follow-up with cardiology and nephrology -Acute uremic and hypoxic encephalopathy: Not improving -Acute hypoxic respiratory failure from fluid overload/CHF.: Not improving On ventilator support since August 28 -Right above-knee amputation by Dr. Yared Lugo on June 2024 Follow-up with Dr. Kaur -Right pleural effusion not felt to be significant. Dr. GIBSON from pulmonary: Following -Possible right basilar pneumonia IV cefepime -Acute COPD exacerbation in a previous smoker Ventolin. DuoNeb-4 times daily. - AICD -Diabetes mellitus type 2 chronically on insulin, uncontrolled with [id number] Levemir 18 units subcu Diabetic diet. Accu-Cheks and sliding scale -Iron deficiency anemia aranesp -Hyperlipidemia Lipitor -End-stage kidney disease on hemodialysis Right IJ dialysis catheter -Hyponatremia-mild Fluid restriction -Chronic low back pain. Patient's had pain on and off for about 10 years. Has had prior surgery. Does not remember who did the surgery. When necessary pain medication -Hypotension. Midodrine -Obstructive sleep apnea sometimes uses CPAP machine -Diabetic peripheral neuropathy -Anxiety, depression Trazodone, Cymbalta -DJD Tylenol when necessary -AICD Due for generator change on August 28. Cardiology aware. -Lower extremity chronic venous insufficiency, with left lower extremity wounds Dr. Kaur consulted -Full code Poor prognosis. ICU. Intubated. Being followed by multiple consultants. Spoke to the nurse today to have patient's son come in. Help from 6 case advocate to contact him. Past Medical History Past Medical History: Asthma, Coronary Artery Disease (CAD), Chest Pain / Angina, Heart Failure, COPD, Diabetes Mellitus, GERD/Reflux, Hyperlipidemia, Hypertension, Myocardial Infarction (MT), Pneumonia, Sleep Apnea/CPAP/BIPAP, Supraventricular Tachycardia (SVT) Additional Past Medical History / Comment(s): Ischemic cardiomyopathy, chronic CHF, SVT, IDDM type II, KAMINI with CPAP occasionally used, chronic cervical/back pain, DJD, diabetic foot wounds x 4 months. Dialysis Last Myocardial Infarction Date:: 12/11/17 History of Any Multi-Drug Resistant Organisms: MRSA Date of last positivie culture/infection: 06/15/23 MDRO Source:: Right Foot Past Surgical History: Adenoidectomy, AICD, Back Surgery, Cholecystectomy, EPS, Heart Catheterization, Pacemaker, Tonsillectomy Additional Past Surgical History / Comment(s): 12/10/17 cardiac cath, previous cardiac cath, 09/02/14 AICD/pacer, EGD/colonoscopy, low back surgery with fusion. Past Anesthesia/Blood Transfusion Reactions: Motion Sickness Additional Past Anesthesia/Blood Transfusion Reaction / Comment(s): Pt states he received blood with back surgery without reaction. Type of Cardiac Device: Permanent Pacemaker, AICD Device Placement Date:: 09-02-14 Past Psychological History: ADD/ADHD, Anxiety Smoking Status: Current every day smoker Past Alcohol Use History: Occasional Past Drug Use History: Marijuana
--- NOTE | 2023-08-29 17:27 | P.PN ---
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 Patient follows in the office with Dr. Abbasi. We have been asked to see the patient in consultation for congestive heart failure. Patient examined at the bedside in the emergency room. Patient was recently hospitalized in June 2023 and underwent right BKA. He was discharged to [facility] in [place]. Patient states he missed his hemodialysis session yesterday because he had an appointment that he could not miss so he decided to skip hemodialysis. The patient states he began to feel short of breath yesterday evening and was brought to the hospital for further evaluation. The patient un derwent hemodialysis this morning. He states his breathing has improved although he continues to be short of breath. He currently denies any chest pain or pressure. DIAGNOSTICS: - EKG reveals sinus mechanism with no signs of acute ischemia. Low voltage QRS. - Chest xray large right pleural effusion - Ultrasound of the chest reveals right chest wall soft tissue along the pleura with large pleural effusion. Small fluid pocket on the left. - Laboratory data: WBC 22.8. Hemoglobin 11.0. Platelet count 189. Sodium 132. Potassium 5.4. BUN 83. Creatinine 6.21. Troponin 0.035. proBNP 72,100. - Current home cardiac medications include amiodarone 200 mg daily, aspirin 81 mg daily, torsemide 40 mg daily, metoprolol tartrate 25 mg twice a day, midodrine 10 mg 3 times a day - Most recent echocardiogram obtained in June 2022 revealed ejection fraction less than 20%, severe pulmonary hypertension, moderate to severe MR, moderate TR - Cardiac catheterization history: February 2018 revealing minimal CAD August 23, 2023 Patient examined this morning at the bedside. Patient currently denies chest pain or pressure. He reports improvement in his shortness of breath. Patient underwent hemodialysis yesterday with removal of 3 L. He also underwent hemodialysis today with removal of 3 L. Telemetry reveals sinus mechanism with heart rate in the 70s. Blood pressure remains on the lower side with a systolic blood pressure in the 90s which is patient's baseline. August 24, 2023 Patient examined this morning at the bedside. Patient is somewhat lethargic at the time of examination. He denies chest pain or pressure. He reports shortness of breath. He is scheduled to undergo hemodialysis again today. Vital signs are stable. Echocardiogram completed revealing ejection fraction 15 to 20%, moderate mitral regurgitation, moderate tricuspid regurgitation, and moderate pulmonary hypertension August 25, 2023 Patient examined this morning at the bedside. Patient denies chest pain or pressure. He underwent hemodialysis yesterday. However, he remains dyspneic at the time of examination and is complaining of shortness of breath. He continues to have significant edema of his left leg, right stump, and abdomen. Blood pressure stable. Most recent blood pressure 98/64. 08/26 Patient is seen today in follow-up. He continues to have significant lower extremity abdominal edema. Patient was on BiPAP during the night currently on 5 L nasal cannula with pulse ox 95%, heart rate is running in the 80s, blood pressure 103/68. Repeat blood work reveals sodium 138, potassium 6, BUN 33 creatinine 3.38. ALT 284. Patient is having 4 L of fluid each dialysis treatment. His weight is documented to be improved from 111-95 however he continues to have significant edema. 08/27 Patient is currently on BiPAP and has a sitter at the bedside. He had dialysis with removal of 3 L of fluid. He seems to be a little more comfortable today and his respiratory status. Blood pressure is 92/54, heart rate in the 80s and 90s. Repeat blood work reveals sodium 132, potassium 4.3, BUN 28 creatinine 2.92. Chest x-ray moderate to large right pleural effusion with adjacent atelectasis and or consolidation. Noted that nephrology has recommended hospice. 08/28 Patient is currently undergoing hemodialysis and goal is for removal of 1 and half liters but his blood pressure is not tolerating this. He is also on BiPAP and has a sitter at the bedside. Heart rate is 110, respiratory rate 34, blood pressure prior to dialysis was 111/68 but dropping systolic down to the 80s. 08/29 Patient seen and examined. Patient was started on dobutamine drip yesterday however this has been discontinued. Patient had respiratory distress, altered mental status and intubated on 4. Currently remains intubated and on vasopressors with norepinephrine at 0.11. Ventilator with a PEEP of 5 and FiO2 50%. PHYSICAL EXAM: VITAL SIGNS: Reviewed. GENERAL: Lethargic but answering questions. HEENT: Head is normocephalic. Pupils are equal, round. Sclerae anicteric. LUNGS: Respirations labored. Lungs with decreased breath sounds and crackles HEART: Regular rate and rhythm. S1 and S2 heard. Systolic murmur noted. EXTREMITIES: Right AKA. 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 Nephrology is following. Hemodialysis and diuretics per nephrology. Continue additional cardiac medications Patient with progressive decline, not able to tolerate hemodialysis well, appears end-stage heart failure. Patient continues to decline and currently on vasopressors. Evaluate goals of care, appears hospice appropriate. Objective - Vital Signs Vital signs: Vital Signs Temp 98.6 F 08/29/23 16:00 Pulse 114 H 08/29/23 16:15 Resp 28 H 08/29/23 16:15 BP 115/66 08/29/23 16:00 Pulse Ox 96 08/29/23 16:15 FiO2 50 08/29/23 16:15 Intake & Output 08/28/23 08/29/23 08/29/23 18:59 06:59 18:59 Intake Total 859.975 0296.262 1275.775 Output Total 2350 15 2421 Balance -3634.776 1676.262 -1145.225 Weight 99 kg 92 kg 92 kg Intake: IV 109 446 390 .9 20 60 240 200 .9 3cc/hr A-line 9 36 30 Cefepime 1 gm In Sodium 50 50 Chloride 0.9% 50 ml @ 12. 5 mls/hr IVPB Q12HR [facility] Rx#:[id number] Invasive Line 5 10 30 30 Invasive Line 7 30 90 80 Intake, IV Titration 35.105 659.262 325.775 Amount DOBUTamine DRIP 500 mg In 8.91 Dextrose/Water 1 250ml. bag @ 2.5 MCG/KG/MIN 7. 425 mls/hr IV .Q24H [facility] Rx#:[id number] Norepinephrine 4 mg In 20.998 487.002 254.000 Sodium Chloride 0.9% 250 ml @ 0.03 MCG/KG/MIN 11. 316 mls/hr IV .[id number] [facility] Rx#:[id number] propofoL 1,000 mg In 5.197 172.260 71.775 Empty Bag 1 bag @ 15 MCG/ KG/MIN 8.91 mls/hr IV . [id number] [facility] Rx#:[id number] Oral 0 Tube Feeding 130 Hemodialysis 400 400 Other 30 Output: Gastric Drainage 150 Urine 0 15 21 Hemodialysis 2200 2400 Other: Voiding Method Indwelling Catheter Indwelling Catheter Indwelling Catheter # Bowel Movements 1 1 1 ABP, PAP, CO, CI - Last Documented Arterial Blood Pressure 117/57 - Labs CBC & Chem 7: 08/29/23 04:20 08/29/23 04:20 Labs: Abnormal Lab Results - Last 24 Hours (Table) 08/28/23 08/28/23 08/29/23 Range/Units 18:40 22:45 04:20 WBC 41.2 H (3.8-10.6) k/uL RBC 3.54 L (4.30-5.90) m/uL Hgb 9.7 L (13.0-17.5) gm/dL Hct 33.1 L (39.0-53.0) % MCHC 29.2 L (31.0-37.0) g/dL RDW 16.5 H (11.5-15.5) % Neutrophils # 38.7 H (1.3-7.7) k/uL Lymphocytes # 0.6 L (1.0-4.8) k/uL Monocytes # 1.4 H (0-1.0) k/uL ABG pO2 (83-108) mmHg ABG HCO3 (21-25) mmol/L ABG Total CO2 (19-24) mmol/L Sodium (137-145) mmol/L BUN (9-20) mg/dL Creatinine (0.66-1.25) mg/dL Glucose (74-99) mg/dL POC Glucose (mg/dL) 196 H (70-110) mg/dL Procalcitonin 2.00 H (0.02-0.09) ng/mL 08/29/23 08/29/23 08/29/23 Range/Units 04:20 05:35 06:06 WBC (3.8-10.6) k/uL RBC (4.30-5.90) m/uL Hgb (13.0-17.5) gm/dL Hct (39.0-53.0) % MCHC (31.0-37.0) g/dL RDW (11.5-15.5) % Neutrophils # (1.3-7.7) k/uL Lymphocytes # (1.0-4.8) k/uL Monocytes # (0-1.0) k/uL ABG pO2 74 L (83-108) mmHg ABG HCO3 26 H (21-25) mmol/L ABG Total CO2 27 H (19-24) mmol/L Sodium 136 L (137-145) mmol/L BUN 34 H (9-20) mg/dL Creatinine 3.09 H (0.66-1.25) mg/dL Glucose 190 H (74-99) mg/dL POC Glucose (mg/dL) 230 H (70-110) mg/dL Procalcitonin (0.02-0.09) ng/mL 08/29/23 Range/Units 11:31 WBC (3.8-10.6) k/uL RBC (4.30-5.90) m/uL Hgb (13.0-17.5) gm/dL Hct (39.0-53.0) % MCHC (31.0-37.0) g/dL RDW (11.5-15.5) % Neutrophils # (1.3-7.7) k/uL Lymphocytes # (1.0-4.8) k/uL Monocytes # (0-1.0) k/uL ABG pO2 (83-108) mmHg ABG HCO3 (21-25) mmol/L ABG Total CO2 (19-24) mmol/L Sodium (137-145) mmol/L BUN (9-20) mg/dL Creatinine (0.66-1.25) mg/dL Glucose (74-99) mg/dL POC Glucose (mg/dL) 175 H (70-110) mg/dL Procalcitonin (0.02-0.09) ng/mL Microbiology - Last 24 Hours (Table) 08/24/23 10:00 Gram Stain - Final Pleural Fluid Body Fluid Culture - Final
[2023-08-29 17:42] LABS: Glucose,Whole Blood 138 mg/dL (70-110)
[2023-08-29 23:27] LABS: Glucose,Whole Blood 215 mg/dL (70-110)
[2023-08-30 03:44] LABS: Anisocytosis Slight; Basophils # (A) 0.1 k/uL (0-0.2); Basophils % (A) 0 %; Eosinophils % (A) 0 %; HCT 33.8 % (39.0-53.0); HGB 10.1 gm/dL (13.0-17.5); Hypochromasia Marked; Lymphocytes # (A) 0.6 k/uL (1.0-4.8); Lymphocytes % (A) 2 %; MCH 27.7 pg (25.0-35.0); MCHC 29.9 g/dL (31.0-37.0); MCV 92.7 fL (80.0-100.0); Mean Platelet Volume 8.2; Monocytes # (A) 1.4 k/uL (0-1.0); Monocytes % (A) 4 %; Neutrophils % (A) 93 %; Platelet Count 204 k/uL (150-450); RBC 3.65 m/uL (4.30-5.90); RDW 16.6 % (11.5-15.5); WBC 38.7 k/uL (3.8-10.6)
[2023-08-30 03:52] LABS: African American GFR (CKD) 29 (>60 ml/min/1.73 sqM); Anion Gap 8 mmol/L; Blood Urea Nitrogen 34 mg/dL (9-20); Carbon Dioxide 26 mmol/L (22-30); Chloride 102 mmol/L (98-107); Glucose 236 mg/dL (74-99); Non-African American GFR(CKD) 25 (>60 ml/min/1.73 sqM); Potassium 3.7 mmol/L (3.5-5.1); Sodium 136 mmol/L (137-145)
[2023-08-30 05:59] LABS: Glucose,Whole Blood 236 mg/dL (70-110)
[2023-08-30 06:23] LABS: ABG Base Excess 1.7 mmol/L; ABG HCO3 27 mmol/L (21-25); ABG Oxygen Saturation 96.8 % (94-97); ABG PCO2 48 mmHg (35-45); ABG PH 7.36 (7.35-7.45); ABG PO2 93 mmHg (83-108); ABG TCO2 29 mmol/L (19-24); Allen Test Performed? Yes
--- NOTE | 2023-08-30 08:48 | XR ---
EXAMINATION TYPE: XR chest 1V portable DATE OF EXAM: 08/30/2023 6:15 AM CLINICAL INDICATION:Male, 53 years old with history of Tube placement; COMPARISON: Chest radiographs from TECHNIQUE: XR chest 1V portable Frontal view of the chest. FINDINGS: Lungs/Pleura: Persistent right perihilar opacities and right small pleural effusion. Scattered airspa ce opacities throughout the right lung are also present. There is no evidence of left pleural effusio n, focal consolidation, or pneumothorax. Pulmonary vascularity: Unremarkable. Heart/mediastinum: Cardiomediastinal silhouette is unremarkable. Atherosclerotic calcifications are seen in the aorta. Musculoskeletal: No acute osseous pathology. Other findings: None Lines/Tubes: Endotracheal tube with distal tip 3.9 Cm above the mary. Nasogastric tube with its distal tip and side-port projecting under the diaphragm. IMPRESSION: 1. Support tubes in appropriate position. 2. Similar Small right pleural effusion with right perihilar opacities.
--- NOTE | 2023-08-30 09:51 | P.PN ---
Subjective Patient seen in follow-up for end-stage renal disease. He is maintained on hemodialysis on Saturday schedule. Has been receiving daily dialysis this admission. He is on Levophed. Tolerated 3 L ultrafiltration this morning. Vital signs are stable. On vasopressor support. General: Resting in bed. HEENT: Intubated. LUNGS: No audible rhonchi or wheezes. HEART: Rate and Rhythm are regular. ABDOMEN: Obese. EXTREMITITES: Right AKA noted. 1+ edema. Objective - Vital Signs Vital signs: Vital Signs Temp 98.3 F 08/30/23 08:44 Pulse 94 08/30/23 08:44 Resp 28 H 08/30/23 08:44 BP 114/57 08/30/23 08:44 Pulse Ox 100 08/30/23 08:44 FiO2 50 08/30/23 07:30 Intake & Output 08/29/23 08/30/23 08/30/23 18:59 06:59 18:59 Intake Total 9920.294 7686.113 461 Output Total 2421 20 3400 Balance -318.374 5387.113 -2939 Weight 92 kg 89.7 kg Intake: IV 436 416 23 .9 20 240 240 20 .9 3cc/hr A-line 36 36 3 Cefepime 1 gm In Sodium 50 50 Chloride 0.9% 50 ml @ 12. 5 mls/hr IVPB Q12HR LAN Rx#:[id number] Invasive Line 5 30 30 Invasive Line 7 80 60 Intake, IV Titration 664.915 665.113 Amount Norepinephrine 4 mg In 493.140 500.871 Sodium Chloride 0.9% 250 ml @ 0.03 MCG/KG/MIN 11. 316 mls/hr IV .[id number] LAN Rx#:[id number] propofoL 1,000 mg In 171.775 164.242 Empty Bag 1 bag @ 15 MCG/ KG/MIN 8.91 mls/hr IV . [id number] LAN Rx#:[id number] Tube Feeding 180 392 38 Hemodialysis 400 400 Other 30 90 Output: Urine 21 20 0 Hemodialysis 2400 3400 Other: Voiding Method Indwelling Catheter Indwelling Catheter # Bowel Movements 0 0 ABP, PAP, CO, CI - Last Documented Arterial Blood Pressure 110/55 - Labs CBC & Chem 7: 08/30/23 03:20 08/30/23 03:20 Labs: Abnormal Lab Results - Last 24 Hours (Table) 08/29/23 08/29/23 08/29/23 Range/Units 11:31 17:40 23:25 WBC (3.8-10.6) k/uL RBC (4.30-5.90) m/uL Hgb (13.0-17.5) gm/dL Hct (39.0-53.0) % MCHC (31.0-37.0) g/dL RDW (11.5-15.5) % Neutrophils # (1.3-7.7) k/uL Lymphocytes # (1.0-4.8) k/uL Monocytes # (0-1.0) k/uL ABG pCO2 (35-45) mmHg ABG HCO3 (21-25) mmol/L ABG Total CO2 (19-24) mmol/L Sodium (137-145) mmol/L BUN (9-20) mg/dL Creatinine (0.66-1.25) mg/dL Glucose (74-99) mg/dL POC Glucose (mg/dL) 175 H 138 H 215 H (70-110) mg/dL 08/30/23 08/30/23 08/30/23 Range/Units 03:20 03:20 05:57 WBC 38.7 H (3.8-10.6) k/uL RBC 3.65 L (4.30-5.90) m/uL Hgb 10.1 L (13.0-17.5) gm/dL Hct 33.8 L (39.0-53.0) % MCHC 29.9 L (31.0-37.0) g/dL RDW 16.6 H (11.5-15.5) % Neutrophils # 36.0 H (1.3-7.7) k/uL Lymphocytes # 0.6 L (1.0-4.8) k/uL Monocytes # 1.4 H (0-1.0) k/uL ABG pCO2 (35-45) mmHg ABG HCO3 (21-25) mmol/L ABG Total CO2 (19-24) mmol/L Sodium 136 L (137-145) mmol/L BUN 34 H (9-20) mg/dL Creatinine 2.75 H (0.66-1.25) mg/dL Glucose 236 H (74-99) mg/dL POC Glucose (mg/dL) 236 H (70-110) mg/dL 08/30/23 Range/Units 06:19 WBC (3.8-10.6) k/uL RBC (4.30-5.90) m/uL Hgb (13.0-17.5) gm/dL Hct (39.0-53.0) % MCHC (31.0-37.0) g/dL RDW (11.5-15.5) % Neutrophils # (1.3-7.7) k/uL Lymphocytes # (1.0-4.8) k/uL Monocytes # (0-1.0) k/uL ABG pCO2 48 H (35-45) mmHg ABG HCO3 27 H (21-25) mmol/L ABG Total CO2 29 H (19-24) mmol/L Sodium (137-145) mmol/L BUN (9-20) mg/dL Creatinine (0.66-1.25) mg/dL Glucose (74-99) mg/dL POC Glucose (mg/dL) (70-110) mg/dL Microbiology - Last 24 Hours (Table) 08/29/23 01:17 Gram Stain - Preliminary Sputum 08/28/23 22:30 Blood Culture - Preliminary Blood 08/28/23 21:50 Blood Culture - Preliminary Blood Assessment and Plan Plan: Assessment: 1. End-stage renal disease maintained on hemodialysis on Saturday schedule. 2. Volume overload. Improving with ultrafiltration. 3. Chronic kidney disease mineral bone disease maintained on PhosLo. Phosphorus level 3.8 dated August 26, 2023. 4. Diabetes mellitus. 5. Acute on chronic systolic CHF with ejection fraction of 15 to 20% with moderate mitral and tricuspid regurgitation and moderate pulmonary hypertension. 6. Acute hypoxic respiratory failure. Intubated. Plan: Completed hemodialysis this morning with 3 L ultrafiltration. Continue with daily dialysis. Maintain midodrine. Wean Levophed. Prognosis guarded. Hospice should be considered. Guardianship being obtained.
[2023-08-30] MEDS: ENOXAPARIN 30 MG/0.3 ML SYRINGE SQ SCH (10:43)
--- NOTE | 2023-08-30 10:52 | P.PN ---
Subjective Progress Note Date: 08/30/23 Principal diagnosis: Respiratory failure. Acute on chronic systolic congestive heart failure with fluid overload and right-sided pleural effusion This is a pleasant 53-year-old male patient with a known history of asthma, neck and ongoing tobacco dependence, marijuana use, coronary artery disease, congestive heart failure, chronic obstructive pulmonary disease, diabetes lambert itus, hyperlipidemia, hypertension, ischemic cardiomyopathy with previous AICD placement, nonhealing ulceration of the right heel with subsequent [id number] amputation on July 26, 2023, chronic kidney disease receiving hemodialysis Saturday, diabetes mellitus, obstructive sleep apnea with CPAP use. He missed his dialysis on Saturday due to having an important meeting to go to. He presented here late last night with worsening shortness of breath and dyspnea on exertion. He also had increased lower extremity edema. Chest x-ray revealed a large right pleural effusion. White count platelets 189. INR 1.4. Sodium 132. Potassium 5.4. Bicarb 23. BUN 83. Creatinine 6.21. Glucose 188. Pro BNP level 72,100. Troponin 0.035. Viral screen negative. Ultrasound of the right chest revealed a 10.6 cm pocket however there was lung tissue seen within the fluid. He is seen today in consultation in the emergency department. He is currently sitting up on the stretcher. Awake and alert in no acute distress. Only maintaining O2 saturation in the 90s on 3 L/min per nasal cannula. Has been afebrile. Hemodynamically stable Patient was reevaluated today on 08/23/2023, he is resting in bed, receiving hemodialysis, chest x-ray this morning continues to show good sized right-sided pleural effusion however the ultrasound showed lung tissue which would likely interfere with the thoracentesis hence I am recommending for now medical therapy/hemodialysis and ultrafiltration. If no improvement could consider repeat ultrasound and proceed with right-sided thoracentesis. Patient does not seem to be in distress, he is actually on 3 L nasal cannula, and his O2 satur ation is in the 90s. Blood pressure is stable. CBC is relatively normal basic metabolic profile is normal BUN is 62 creatinine 5.09 Patient was reevaluated today on 08/25/2023, patient underwent right-sided thoracentesis yesterday, doing well today, no coughing no wheezing, on 3 L nasal cannula with O2 sats of 98%. Patient is scheduled to have hemodialysis again today. The pleural effusion I drained yesterday came back to be exudative in nature, cultures are pending cytology is pending. BBC count today is 11.3 hemoglobin is 11 basic metabolic profile is normal BUN is 40 creatinine 3.46 Gr am stain on the pleural effusion is negative Progress note dated August 26, 2023. The patient appears to be doing relatively well. The patient is currently undergoing hemodialysis. The plan is to remove 4 L of fluid today. According to the nephrology nurse, the patient is going to have daily hemodialysis. Currently, he is on 5 L nasal cannula. He is not manifesting any signs or symptoms of respiratory distress. In addition, the patient can use BiPAP, with settings of 12/6, and 40%. No new labs today other than a phosphorus of 3.8, and a glucose of 119. Chest x-ray shows ongoing pulmonary vascular congestion, and a moderate right-sided pleural effusion, with some basilar atelectasis. Progress note dated August 27, 2023. 53-year-old male seen in room 370. He is currently undergoing hemodialysis. The patient could not sustain himself on nasal cannula, so is back on BiPAP, wi th settings of 12/6, and 40%. The plan for hemodialysis today is to remove 3 L of fluid. The patient is not receiving any IV fluids either. Labs today include a sodium 132, potassium 4.3, chloride 96, CO2 23, anion gap 13, BUN 28, creatinine 2.92. Glucose is 129 with a calcium of 8.9. Chest x-ray from today shows a large right-sided pleural effusion, with adjacent atelectasis. In addition, there is evidence of vascular overload. Progress note dated August 28, 2023. 53-year-old male seen in room 370. The patient is currently undergoing hemodialysis. He is currently on BiPAP, with settings of 13/6 and 40%. The plan for hemodialysis today is removal of 3 L of fluid. Yesterday, August 27, he had 3.1 L of fluid removed. The patient had an ultrasound of his chest ordered by the primary service. There is a small pocket of fluid on the right, only measuring 3.7 cm. There appears to be some debris in the pleural space as well. The left pleural space has no fluid. We tried to have a conversation with the patient yesterday about CODE STATUS, but I do not believe he was lucid enough to understand the conversation. Current labs today include a glucose of 167. Labs from yesterday, reviewed. His BUN and creatinine from yesterday was 28 and 2.92. Progress note dated August 29, 2023. 53-year-old male who developed acute respiratory failure yesterday, requiring intubation and mechanical ventilation. The patient was transferred to the intensive care unit. A left subclavian triple-lumen catheter was placed, as well as a left radial arterial line. Currently, the patient remains on the mechanical ventilator. Settings include volume assist-control, rate 28, tidal volume 450, FiO2 50%, PEEP of 5. Blood gases show pO2 of 74, pCO2 of 45, pH 7.37. The patient is on propofol at 25 mcg/kg/min, saline at 20 cc an hour, and norepinephrine at 11 mcg/min. The patient's procalcitonin level was 2. The patient is on cefepime. Tube feedings will be started today. White count is 41.2, hemoglobin 9.7, hematocrit 33.1, and platelet count 251,000. Sodium 136, potassium 3.8, chloride 98, CO2 24, anion gap 14, BUN 34, creatinine 3.09. Calcium is 9.2. Glucose is 175. Pleural fluid analysis is negative. Chest x- ray shows some minimal perihilar opacity on the right side, and a small right- sided pleural effusion. Progress note dated August 30, 2023. 53-year-old male seen in the intensive care unit, room 256. He remains on the mechanical ventilator. His ventilator settings include volume assist-control, rate 28, tidal volume 450, FiO2 50%, PEEP of 5. Blood gases show a pO2 of 93, pCO2 of 48, pH of 7.36. The patient is currently on propofol 25 mcg/kg/min, and norepinephrine at 10 mcg/min. No IV fluids. Hemodialysis is being done today. The plan is to remove 3 L. He is getting Nepro at 38 cc an hour, which is goal. He continues on cefepime. White count 38.7, hemoglobin 10.1, hematocrit 33.8, and platelet count 204,000. Sodium 136, potassium 3.7, chloride 102, CO2 26, BUN 34, creatinine 2.75. Glucose is 236. Calcium 9, magnesium 2.1. Urine reveals gram-negative bacilli. Chest x-ray shows diminished lung volumes on the right, with some atelectasis or infiltrate at the right lung base, and a right- sided pleural effusion. The patient continues on cefepime. Objective - Vital Signs Vital signs: Vital Signs Temp 98.3 F 08/30/23 08:44 Pulse 93 08/30/23 10:00 Resp 28 H 08/30/23 10:00 BP 107/71 08/30/23 10:00 Pulse Ox 97 08/30/23 10:00 FiO2 50 08/30/23 10:34 Intake & Output 08/29/23 08/30/23 08/30/23 18:59 06:59 18:59 Intake Total 2340.712 7756.113 749.5 Output Total 2421 20 3405 Balance -200.219 3924.113 -2655.5 Weight 92 kg 89.7 kg Intake: IV 436 416 92 .9 20 240 240 80 .9 3cc/hr A-line 36 36 12 Cefepime 1 gm In Sodium 50 50 Chloride 0.9% 50 ml @ 12. 5 mls/hr IVPB Q12HR LAN Rx#:[id number] Invasive Line 5 30 30 Invasive Line 7 80 60 Intake, IV Titration 664.915 665.113 37.5 Amount Cefepime 1 gm In Sodium 37.5 Chloride 0.9% 50 ml @ 12. 5 mls/hr IVPB Q12HR LAN Rx#:[id number] Norepinephrine 4 mg In 493.140 500.871 Sodium Chloride 0.9% 250 ml @ 0.03 MCG/KG/MIN 11. 316 mls/hr IV .[id number] LAN Rx#:[id number] propofoL 1,000 mg In 171.775 164.242 Empty Bag 1 bag @ 15 MCG/ KG/MIN 8.91 mls/hr IV . [id number] LAN Rx#:[id number] Tube Feeding 180 392 190 Hemodialysis 400 400 Other 30 90 30 Output: Urine 21 20 5 Hemodialysis 2400 3400 Other: Voiding Method Indwelling Catheter Indwelling Catheter # Bowel Movements 0 0 ABP, PAP, CO, CI - Last Documented Arterial Blood Pressure 107/54 - Exam No acute distress, sedated, with an orally placed endotracheal tube, and NG tube. HEENT examination is grossly unremarkable. Neck supple. Full range of motion. No adenopathy thyromegaly or neck vein distention. Cardiovascular examination reveals regular rhythm rate. S1-S2 normal. No S3 or S4. No discernible murmur noted. Heart rate 93 bpm. Heart sounds are distant. Lungs reveal bilateral crackles and rhonchi. Breath sounds are equal bilaterally. No wheezes. Saturations are 97% on the ventilator. Abdomen is soft, but obese. Bowel sounds are noted. Extremities are intact. No cyanosis or clubbing. Bilateral lower extremity edema is noted. Skin is without rash or lesion. Neurologic examination cannot be assessed at this time. - Labs CBC & Chem 7: 08/30/23 03:20 08/30/23 03:20 Labs: Abnormal Lab Results - Last 24 Hours (Table) 08/29/23 08/29/23 08/29/23 Range/Units 11:31 17:40 23:25 WBC (3.8-10.6) k/uL RBC (4.30-5.90) m/uL Hgb (13.0-17.5) gm/dL Hct (39.0-53.0) % MCHC (31.0-37.0) g/dL RDW (11.5-15.5) % Neutrophils # (1.3-7.7) k/uL Lymphocytes # (1.0-4.8) k/uL Monocytes # (0-1.0) k/uL ABG pCO2 (35-45) mmHg ABG HCO3 (21-25) mmol/L ABG Total CO2 (19-24) mmol/L Sodium (137-145) mmol/L BUN (9-20) mg/dL Creatinine (0.66-1.25) mg/dL Glucose (74-99) mg/dL POC Glucose (mg/dL) 175 H 138 H 215 H (70-110) mg/dL 08/30/23 08/30/23 08/30/23 Range/Units 03:20 03:20 05:57 WBC 38.7 H (3.8-10.6) k/uL RBC 3.65 L (4.30-5.90) m/uL Hgb 10.1 L (13.0-17.5) gm/dL Hct 33.8 L (39.0-53.0) % MCHC 29.9 L (31.0-37.0) g/dL RDW 16.6 H (11.5-15.5) % Neutrophils # 36.0 H (1.3-7.7) k/uL Lymphocytes # 0.6 L (1.0-4.8) k/uL Monocytes # 1.4 H (0-1.0) k/uL ABG pCO2 (35-45) mmHg ABG HCO3 (21-25) mmol/L ABG Total CO2 (19-24) mmol/L Sodium 136 L (137-145) mmol/L BUN 34 H (9-20) mg/dL Creatinine 2.75 H (0.66-1.25) mg/dL Glucose 236 H (74-99) mg/dL POC Glucose (mg/dL) 236 H (70-110) mg/dL 08/30/23 Range/Units 06:19 WBC (3.8-10.6) k/uL RBC (4.30-5.90) m/uL Hgb (13.0-17.5) gm/dL Hct (39.0-53.0) % MCHC (31.0-37.0) g/dL RDW (11.5-15.5) % Neutrophils # (1.3-7.7) k/uL Lymphocytes # (1.0-4.8) k/uL Monocytes # (0-1.0) k/uL ABG pCO2 48 H (35-45) mmHg ABG HCO3 27 H (21-25) mmol/L ABG Total CO2 29 H (19-24) mmol/L Sodium (137-145) mmol/L BUN (9-20) mg/dL Creatinine (0.66-1.25) mg/dL Glucose (74-99) mg/dL POC Glucose (mg/dL) (70-110) mg/dL Microbiology - Last 24 Hours (Table) 08/28/23 15:19 Urine Culture - Preliminary Urine,Voided Gram Neg Bacilli 08/29/23 01:17 Gram Stain - Preliminary Sputum 08/28/23 22:30 Blood Culture - Preliminary Blood 08/28/23 21:50 Blood Culture - Preliminary Blood Assessment and Plan Assessment: Acute hypoxemic and hypercapnic respiratory failure, S/P intubation, and mechanical ventilation, on August 28, 2023. Acute on chronic systolic congestive heart failure, secondary to fluid volume overload from missed hemodialysis. Ischemic cardiomyopathy, with an ejection fraction of 20%. Status postplacement of a automatic implantable cardiac defibrillator. Stage III chronic kidney disease, secondary to diabetic nephropathy, currently on hemodialysis, Saturday and Saturday. Acute kidney injury secondary to recently missed hemodialysis session. Recent right [id number]-[id number] amputation secondary to an infected right heel diabetic ulcer. Lower extremity chronic venous insufficiency. History of chronic tobacco dependence, with underlying COPD. History of marijuana use. Type 2 diabetes mellitus, controlled with insulin. Hyperlipidemia. Moderate to severe mitral regurgitation/moderate tricuspid regurgitation, and severe pulmonary hypertension. Chronic low back pain. Essential hypertension. Obstructive sleep apnea syndrome, intermittent use of CPAP. Diabetic peripheral neuropathy. Status post right-sided thoracentesis, with nearly 1200 cc drained. Plan: Plan dated August 26, 2023. The patient will apparently have daily hemodialysis for the time being, accord ing to nephrology. The patient is on nasal cannula at 5 L, or BiPAP, at 12/6, and 40%. The patient appears chronically ill. He continues on bronchodilators. The patient did have a right-sided thoracentesis. The patient is currently on 5 L, or BiPAP. Labs, x-rays, medications are reviewed. The patient's overall prognosis remains guarded. He looks much older than his stated age of 53 years. We will continue to follow make recommendations along the way. Plan dated August 27, 2023. The patient is currently on hemodialysis. The plan is to remove about 3 L today. The patient's chest x-ray is reviewed. Labs, and medications were also reviewed. The patient's BiPAP settings are 12/6, and 40%. The patient is not receiving any IV fluids. I tried to have a conversation with the patient today about CODE STATUS. The patient was in and out, and really could not have an intelligent conversation about CODE STATUS, and whether or not he would want intubation with mechanical ventilation. According to the nurse, the patient's ex- wants nothing to do with the patient. Not sure that there is any other family members. Prognosis is poor. We will continue to follow, and make arnoldo mmendations along the way. Plan dated August 28, 2023. The patient looks about the same today as he did yesterday. He continues on BiPAP, with settings of 13/6, and 40%. The patient had hemodialysis yesterday, with 3.1 L of fluid removed. The goal was to remove 3 L today. Labs, x-rays, and medications are reviewed. The patient's overall prognosis is not very good. An ultrasound was ordered by the primary hospital service. There is no fluid on the left. A very small pocket of 3.7 cm on the right. There was some debris in the pleural space as well. I do not believe thoracentesis would be warranted at this time. The patient is a full code. We attempted to have a conversation with him yesterday, but I do not believe he was lucid to understand the conversation, and as to whether or not he would want to be on life support. Plan dated August 29, 2023. Yesterday, the patient developed acute hypoxemic and hypercapnic respiratory failure. The patient was transferred down to the intensive care unit, where he was intubated by anesthesia. A left subclavian triple-lumen catheter was placed, as well as a left radial arterial line. The patient remains on the ventilator. He is on propofol at 25 mcg/kg/min, saline at 20 cc an hour, norepinephrine at 11 mcg/min. Will start tube feedings today. His procalcitonin level was 2. He is on cefepime. Labs, x-rays, and medications are reviewed. The patient's overall prognosis remains rather poor. Unfortunately, there were no family members available. We will continue to follow the patient, make recommendations along the way. Prognosis is poor. Plan dated August 30, 2023. The patient is seen today in room 256. The patient remains on the mechanical ventilator. The patient is receiving norepinephrine at 10 mcg/min, and propofol at 25 mcg/kg/min. No additional IV fluids. The patient had hemodialysis this morning. The goal is to remove 3 L. The patient is receiving tube feedings at goal. We will plan on doing daily interruption of sedation today, and to evaluate the patient for possible spontaneous breathing trial. Additional recommendations and suggestions are forthcoming. Labs, x-rays, and medications are reviewed. Prognosis is certainly very poor. We will continue to follow. Time with Patient: Greater than 30
[2023-08-30 11:48] LABS: Glucose,Whole Blood 216 mg/dL (70-110)
[2023-08-30 12:09] LABS: Glucose,Whole Blood 213 mg/dL (70-110)
--- NOTE | 2023-08-30 13:50 | P.PN ---
Progress Note - Text Progress Note Date: 08/30/23 Chief Complaint: Short of breath This is a 53-year-old patient, follows with Dr. Rodríguez. Chronic stable medical condition include CHF EF less than 20%, COPD, diabetes mellitus type 2, hypertension, hyperlipidemia, obstructive sleep apnea, anxiety, AICD, lower extremity venous insufficiency. Patient had lower extremity wounds for which she followed with Dr. Kaur from vascular and ID Dr. Abbasi. Multiple admissions. Patient finally agreed to amputation for the right foot wound that was not healing.. Finally on July 26 patient underwent right above-knee amputation by Dr. Kaur from vascular. Patient was [facility] a [facility]. Patient had been noncompliant with hemodialysis prior to that admission. Patient presented to our ER after being progressively increasing shortness of breath. He missed his dialysis yesterday. He became increasingly short of breath. Increasing edema. Some cough. Denies any fever and chills. Tired. Nephrology was called. Patient getting 3 L removed with dialysis today. Patient currently a resident of [facility]. Patient received midodrine today before started dialysis August 23: Tolerated breakfast well. 3 L of fluid being removed today. Patient is due for his generator change on August 28. Cardiology consulted and informed. Has edema. August 24: Oral intake good. Diet. Dialysis per nephrology. Right-sided thoracentesis 1156 cc removed. By pulmonary August 25: Tired. Congested chest. Short of breath. Pulse ox 87% on room air. August 26: Slightly less short of breath. To still present. Getting 4 L removed today. Blood pressure running in the 90s. But more awake August 27: Remains short of breath. BiPAP. Easily gets short winded. Getting dialysis again today. About 3 L plan to be removed. Some decrease in edema. Chest x-ray showing significant right-sided pleural effusion. Hopefully patient will benefit from right thoracentesis. We can have a further discussion with him about CODE STATUS in that case. Patient lives with his 20-year-old son. Dr. GIBSON from pulmonary following August 28: Remains on BiPAP. Somewhat lethargic. Did attempt to speak to the patient Yumiko CODE STATUS. I felt he started send no but given his mentation cannot be sure. Did communicate with Dr. GIBSON from pulmonary. Does not feel there is any significant fluid on the right side for thoracentesis. Dialysis today again. 2200 cc removed. Prognosis guarded. Poor oral intake. Right side could also be infiltrate given the elevated white count. Add cefepime August 29: Patient was moved to the ICU yesterday for further respiratory distr ess. Intubated. Patient on IV propofol and Levophed. On ventilator support. Spoke to the nurse to see if he can get the local authorities/progress to contact patient's son and have him come in. Patient's ex- is completely estranged from him. Has no other known family. I discussed with Dr. Mares from nephrology. We both agree that patient's prognosis is very poor. And hospice would be appropriate. August 30: ICU. Remains intubated. FiO2 50 and PEEP of 5. Drips include IV propofol and norepinephrine. Tube feeding through NG tube 30 cc an hour. No family can be tracked down. Temporary guardian hearing scheduled for 09/06/2023 at 8:30 AM.. FiO2 50 and a PEEP of 5. Active Medications Acetaminophen (Acetaminophen Tab 325 Mg Tab) 650 mg PO Q6HR PRN PRN Reason: Mild Pain or Fever > 100.5 Last Admin: 08/30/23 02:19 Dose: 650 mg Hydrocodone Bitart/Acetaminophen (Hydrocodone/Apap 5-325mg 1 Each Tab) 1 each PO Q8HR [facility] Last Admin: 08/30/23 08:50 Dose: 1 each Albuterol/Ipratropium (Ipratropium-Albuterol 3 Ml Neb) 3 ml INHALATION RT-Q2H PRN PRN Reason: Shortness Of Breath Or Wheezing Last Admin: 08/25/23 03:36 Dose: 3 ml Albuterol/Ipratropium (Ipratropium-Albuterol 3 Ml Neb) 3 ml INHALATION RT-Q4H [facility] Last Admin: 08/30/23 10:53 Dose: 3 ml Amiodarone HCl (Amiodarone 200 Mg Tab) 200 mg PO DAILY [facility] Last Admin: 08/30/23 08:50 Dose: 200 mg Ascorbic Acid (Ascorbic Acid 500 Mg Tab) 1,000 mg PO DAILY [facility] Last Admin: 08/30/23 08:49 Dose: 1,000 mg Aspirin (Aspirin 81 Mg) 81 mg PO DAILY [facility] Last Admin: 08/30/23 08:49 Dose: 81 mg Calcium Acetate (Calcium Acetate 667 Mg Tab) 667 mg PO TID-W/MEALS [facility] Last Admin: 08/30/23 11:42 Dose: 667 mg Calcium Carbonate/Glycine (Calcium Carbonate 500 Mg Chewable) 1,000 mg PO Q4HR PRN PRN Reason: Dyspepsia Chlorhexidine Gluconate (Chlorhexidine Gluconate 15 Ml Cup) 15 ml MUCOUS MEM BID [facility] Last Admin: 08/30/23 08:44 Dose: 15 ml Dextrose/Water (Dextrose 50% Syringe 50 Ml) 25 ml IVP PER PROTOCOL PRN; Protocol PRN Reason: Hypoglycemia Last Admin: 08/25/23 12:36 Dose: 25 ml Dextrose/Water (Dextrose 50% Syringe 50 Ml) 50 ml IVP PER PROTOCOL PRN; Protocol PRN Reason: Hypoglycemia Duloxetine HCl (Duloxetine Hcl 30 Mg Capsule.Dr) 30 mg PO DAILY [facility] Last Admin: 08/30/23 08:50 Dose: 30 mg Enoxaparin Sodium (Enoxaparin 30 Mg/0.3 Ml Syringe) 30 mg SQ DAILY [facility] Last Admin: 08/30/23 10:43 Dose: 30 mg Famotidine (Famotidine 20 Mg Tab) 20 mg PO DAILY [facility] Last Admin: 08/30/23 08:51 Dose: 20 mg Fluphenazine HCl (Fluphenazine 1 Mg Tab) 3 mg PO HS [facility] Last Admin: 08/29/23 23:21 Dose: 3 mg Fluticasone Propionate (Fluticasone 50mcg/[place] Nasal 16gm) 2 spray EA NOSTRIL DAILY PRN PRN Reason: Allergy Symptoms Folic Acid (Folic Acid 1 Mg Tab) 1 mg PO DAILY [facility] Last Admin: 08/30/23 08:51 Dose: 1 mg Propofol 1,000 mg/ IV Solution 100 mls @ 8.91 mls/hr IV .[id number] [facility]; Protocol Last Admin: 08/30/23 11:44 Dose: 25 mcg/kg/min, 14.85 mls/hr Norepinephrine Bitartrate 4 mg (/ Sodium Chloride) 254 mls @ 11.316 mls/hr IV .[id number] [facility]; Protocol Last Admin: 08/30/23 11:45 Dose: 0.08 mcg/kg/min, 30.175 mls/hr Cefepime HCl 2 gm/ Sodium (Chloride) 100 mls @ 25 mls/hr IVPB Q12HR [facility] Insulin Aspart (Insulin Aspart (Novolog) 100 Unit/Ml Vial) 0 unit SQ Q6HR [facility]; Protocol Last Admin: 08/30/23 11:42 Dose: 4 unit Insulin Detemir (Insulin Detemir (Levemir) 100 Unit/Ml Syr) 10 unit SQ HS [facility] Last Admin: 08/29/23 20:21 Dose: 10 unit Lactulose (Lactulose 20 Gm/30 Ml Cup) 20 gm PO DAILY PRN PRN Reason: Constipation Midodrine (Midodrine 5 Mg Tab) 10 mg PO AC-TID [facility] Last Admin: 08/30/23 11:42 Dose: 10 mg Multivitamins (Multivitamins, Thera 1 Each Tab) 1 each PO DAILY [facility] Last Admin: 08/30/23 08:51 Dose: 1 each Naloxone HCl (Naloxone 0.4 Mg/Ml 1 Ml Vial) 0.2 mg IV Q2M PRN PRN Reason: Opioid Reversal Nystatin (Nystatin 100,000 Unit/Ml Susp 500,000 Unit/5 Ml Cup) 500,000 unit PO QID [facility]; Protocol Last Admin: 08/30/23 13:21 Dose: 500,000 unit Ondansetron HCl (Ondansetron 4 Mg/2 Ml Vial) 4 mg IVP Q8HR PRN PRN Reason: Nausea And Vomiting Pantoprazole Sodium (Pantoprazole 40 Mg/10 Ml Vial) 40 mg IVP HS [facility] Last Admin: 08/29/23 20:20 Dose: 40 mg Petrolatum (Zinc Oxide Paste (Z-Guard) 1 Applic) 1 applic TOPICAL DAILY PRN; Protocol PRN Reason: Wound Healing Trazodone HCl (Trazodone Hcl 50 Mg Tab) 50 mg PO HS PRN PRN Reason: Agitation Social history: Lives with his 20-year-old son. Disabled. 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 Smoking 2 packs a day for most of his life . Stop drinking heavy alcohol about 20 years ago. Has done marijuana. Physical examination: VITAL SIGNS: 98.2, 101, 28, 99/64, 99% on the ventilator GENERAL: Intubated sedated EYES: Pupils equal. Conjunctiva normal. HEENT: External appearance of nose and ears normal, ET tube NECK: JVD raised; masses not palpable. HEART: First and second heart sounds are normal; significant edema LUNGS: Respiratory rate increased; diminished breath sounds ABDOMEN: Soft, nontender, liver spleen not palpable, no masses palpable. PSYCH: Sedated NEUROLOGICAL: Sedated DERMATOLOGICAL: Right above-knee amputation. Left lower extremity wound INVESTIGATIONS, reviewed in the clinical context: August 29: White count 41.2 hemoglobin 9.7 platelets 251 potassium 3.8 BUN 34 creatinine 3.09 August 28: White count 24.8 hemoglobin 10 ABG: pH 7.28 pCO2 57 BUN 24 creatinine 2.44 August 27: Sodium 132 potassium 4.3 creatinine 2.92 August 23: White count 13.9 hemoglobin 10.9 platelets 194 potassium 5.2 BUN 62 creatinine 5.09 August 21, 2023: White count 22.8 hemoglobin 11 platelets were 89 sodium 132 potassium 5.4 BUN 83 creatinine 6.21 Troponin I 0.035. proBNP [id number] Influenza type A, type B, RSV, COVID-19: Not detected EKG tracing personally reviewed by me-normal sinus rhythm. Chest x-ray film personally reviewed by me-large right pleural effusion Chest ultrasound: Large right pleural effusion Assessment and plan: -Acute on chronic congestive heart failure nonischemic cardiomyopathy systolic dysfunction EF less than 20%: Worsening from missed hemodialysis.: Slow to respond Hemodialysis-as per nephrology AICD. Fluid restriction 1500 mL. Follow-up with cardiology and nephrology -Acute uremic and hypoxic encephalopathy: Not improving -Acute hypoxic respiratory failure from fluid overload/CHF.: Not improving On ventilator support since August 28 -Right above-knee amputation by Dr. Yared Lugo on June 2024 Follow-up with Dr. Kaur -Right pleural effusion not felt to be significant. Dr. GIBSON from pulmonary: Following -Possible right basilar pneumonia IV cefepime -Acute COPD exacerbation in a previous smoker Ventolin. DuoNeb-4 times daily. - AICD -Diabetes mellitus type 2 chronically on insulin, uncontrolled with [id number] Levemir 18 units subcu Diabetic diet. Accu-Cheks and sliding scale -Iron deficiency anemia aranesp -Hyperlipidemia Lipitor -End-stage kidney disease on hemodialysis Right IJ dialysis catheter -Hyponatremia-mild Fluid restriction -Chronic low back pain. Patient's had pain on and off for about 10 years. Has had prior surgery. Does not remember who did the surgery. When necessary pain medication -Hypotension. Midodrine -Obstructive sleep apnea sometimes uses CPAP machine -Diabetic peripheral neuropathy -Anxiety, depression Trazodone, Cymbalta -DJD Tylenol when necessary -AICD Due for generator change on August 28. Cardiology aware. -Lower extremity chronic venous insufficiency, with left lower extremity wounds Dr. Kaur consulted -Full code -Guardianship: Pending hearing on September 06, 2023. In the probate court. Patient remains critical. Very poor prognosis. Past Medical History Past Medical History: Asthma, Coronary Artery Disease (CAD), Chest Pain / Angina, Heart Failure, COPD, Diabetes Mellitus, GERD/Reflux, Hyperlipidemia, Hypertension, Myocardial Infarction (AL), Pneumonia, Sleep Apnea/CPAP/BIPAP, Supraventricular Tachycardia (SVT) Additional Past Medical History / Comment(s): Ischemic cardiomyopathy, chronic CHF, SVT, IDDM type II, KAMINI with CPAP occasionally used, chronic cervical/back pain, DJD, diabetic foot wounds x 4 months. Dialysis Last Myocardial Infarction Date:: 12/11/17 History of Any Multi-Drug Resistant Organisms: MRSA Date of last positivie culture/infection: 06/15/23 MDRO Source:: Right Foot Past Surgical History: Adenoidectomy, AICD, Back Surgery, Cholecystectomy, EPS, Heart Catheterization, Pacemaker, Tonsillectomy Additional Past Surgical History / Comment(s): 12/10/17 cardiac cath, previous cardiac cath, 09/02/14 AICD/pacer, EGD/colonoscopy, low back surgery with fusion. Past Anesthesia/Blood Transfusion Reactions: Motion Sickness Additional Past Anesthesia/Blood Transfusion Reaction / Comment(s): Pt states he received blood with back surgery without reaction. Type of Cardiac Device: Permanent Pacemaker, AICD Device Placement Date:: 09-02-14 Past Psychological History: ADD/ADHD, Anxiety Smoking Status: Current every day smoker Past Alcohol Use History: Occasional Past Drug Use History: Marijuana
[2023-08-30] MEDS: NOREPINEPHRINE 8 MG in SODIUM CHLORIDE 0.9% 250 ML IV SCH (14:50)
[2023-08-30 16:47] LABS: Glucose,Whole Blood 262 mg/dL (70-110)
[2023-08-30 17:15] LABS: African American GFR (CKD) 42 (>60 ml/min/1.73 sqM); Anion Gap 8 mmol/L; Blood Urea Nitrogen 29 mg/dL (9-20); Calcium 8.9 mg/dL (8.4-10.2); Carbon Dioxide 25 mmol/L (22-30); Chloride 100 mmol/L (98-107); Glucose 273 mg/dL (74-99); Non-African American GFR(CKD) 36 (>60 ml/min/1.73 sqM); Sodium 133 mmol/L (137-145)
--- NOTE | 2023-08-30 17:56 | P.PN ---
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 Patient follows in the office with Dr. Abbasi. We have been asked to see the patient in consultation for congestive heart failure. Patient examined at the bedside in the emergency room. Patient was recently hospitalized in June 2023 and underwent right BKA. He was discharged to [facility] in [place]. Patient states he missed his hemodialysis session yesterday because he had an appointment that he could not miss so he decided to skip hemodialysis. The patient states he began to feel short of breath yesterday evening and was brought to the hospital for further evaluation. The patient un derwent hemodialysis this morning. He states his breathing has improved although he continues to be short of breath. He currently denies any chest pain or pressure. DIAGNOSTICS: - EKG reveals sinus mechanism with no signs of acute ischemia. Low voltage QRS. - Chest xray large right pleural effusion - Ultrasound of the chest reveals right chest wall soft tissue along the pleura with large pleural effusion. Small fluid pocket on the left. - Laboratory data: WBC 22.8. Hemoglobin 11.0. Platelet count 189. Sodium 132. Potassium 5.4. BUN 83. Creatinine 6.21. Troponin 0.035. proBNP 72,100. - Current home cardiac medications include amiodarone 200 mg daily, aspirin 81 mg daily, torsemide 40 mg daily, metoprolol tartrate 25 mg twice a day, midodrine 10 mg 3 times a day - Most recent echocardiogram obtained in June 2022 revealed ejection fraction less than 20%, severe pulmonary hypertension, moderate to severe MR, moderate TR - Cardiac catheterization history: February 2018 revealing minimal CAD August 23, 2023 Patient examined this morning at the bedside. Patient currently denies chest pain or pressure. He reports improvement in his shortness of breath. Patient underwent hemodialysis yesterday with removal of 3 L. He also underwent hemodialysis today with removal of 3 L. Telemetry reveals sinus mechanism with heart rate in the 70s. Blood pressure remains on the lower side with a systolic blood pressure in the 90s which is patient's baseline. August 24, 2023 Patient examined this morning at the bedside. Patient is somewhat lethargic at the time of examination. He denies chest pain or pressure. He reports shortness of breath. He is scheduled to undergo hemodialysis again today. Vital signs are stable. Echocardiogram completed revealing ejection fraction 15 to 20%, moderate mitral regurgitation, moderate tricuspid regurgitation, and moderate pulmonary hypertension August 25, 2023 Patient examined this morning at the bedside. Patient denies chest pain or pressure. He underwent hemodialysis yesterday. However, he remains dyspneic at the time of examination and is complaining of shortness of breath. He continues to have significant edema of his left leg, right stump, and abdomen. Blood pressure stable. Most recent blood pressure 98/64. 08/26 Patient is seen today in follow-up. He continues to have significant lower extremity abdominal edema. Patient was on BiPAP during the night currently on 5 L nasal cannula with pulse ox 95%, heart rate is running in the 80s, blood pressure 103/68. Repeat blood work reveals sodium 138, potassium 6, BUN 33 creatinine 3.38. ALT 284. Patient is having 4 L of fluid each dialysis treatment. His weight is documented to be improved from 111-95 however he continues to have significant edema. 08/27 Patient is currently on BiPAP and has a sitter at the bedside. He had dialysis with removal of 3 L of fluid. He seems to be a little more comfortable today and his respiratory status. Blood pressure is 92/54, heart rate in the 80s and 90s. Repeat blood work reveals sodium 132, potassium 4.3, BUN 28 creatinine 2.92. Chest x-ray moderate to large right pleural effusion with adjacent atelectasis and or consolidation. Noted that nephrology has recommended hospice. 08/28 Patient is currently undergoing hemodialysis and goal is for removal of 1 and half liters but his blood pressure is not tolerating this. He is also on BiPAP and has a sitter at the bedside. Heart rate is 110, respiratory rate 34, blood pressure prior to dialysis was 111/68 but dropping systolic down to the 80s. 08/29 Patient seen and examined. Patient was started on dobutamine drip yesterday however this has been discontinued. Patient had respiratory distress, altered mental status and intubated on 4. Currently remains intubated and on vasopressors with norepinephrine at 0.11. Ventilator with a PEEP of 5 and FiO2 50%. 08/30 Patient seen and examined. Patient remains intubated on FiO2 50% and a PEEP of 5. Receiving tube feeds at 30 mL per hour. Temporary guardian attempting to be set in place. On low-dose norepinephrine. PHYSICAL EXAM: VITAL SIGNS: Reviewed. GENERAL: Lethargic but answering questions. HEENT: Head is normocephalic. Pupils are equal, round. Sclerae anicteric. LUNGS: Respirations labored. Lungs with decreased breath sounds and crackles HEART: Regular rate and rhythm. S1 and S2 heard. Systolic murmur noted. EXTREMITIES: Right AKA. 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 Nephrology is following. Hemodialysis and diuretics per nephrology. Continue additional cardiac medications Patient with progressive decline, not able to tolerate hemodialysis well, appears end-stage heart failure. Patient continues to decline and currently on vasopressors. Evaluate goals of care, appears hospice appropriate. Continue supportive care and wean vent as able. Objective - Vital Signs Vital signs: Vital Signs Temp 99.5 F 08/30/23 16:00 Pulse 113 H 08/30/23 17:00 Resp 29 H 08/30/23 17:00 BP 101/62 08/30/23 17:00 Pulse Ox 100 08/30/23 17:00 FiO2 50 08/30/23 16:00 Intake & Output 08/29/23 08/30/23 08/30/23 18:59 06:59 18:59 Intake Total 6475.036 7336.113 1524.955 Output Total 2421 20 3405 Balance -223.297 6752.113 -1880.045 Weight 92 kg 89.7 kg Intake: IV 436 416 193 .9 20 240 240 160 .9 3cc/hr A-line 36 36 33 Cefepime 1 gm In Sodium 50 50 Chloride 0.9% 50 ml @ 12. 5 mls/hr IVPB Q12HR [facility] Rx#:[id number] Invasive Line 5 30 30 Invasive Line 7 80 60 Intake, IV Titration 664.915 665.113 453.955 Amount Cefepime 1 gm In Sodium 50.0 Chloride 0.9% 50 ml @ 12. 5 mls/hr IVPB Q12HR [facility] Rx#:[id number] Norepinephrine 4 mg In 493.140 500.871 303.955 Sodium Chloride 0.9% 250 ml @ 0.03 MCG/KG/MIN 11. 316 mls/hr IV .[id number] [facility] Rx#:[id number] propofoL 1,000 mg In 171.775 164.242 100 Empty Bag 1 bag @ 15 MCG/ KG/MIN 8.91 mls/hr IV . [id number] [facility] Rx#:[id number] Tube Feeding 180 392 418 Hemodialysis 400 400 Other 30 90 60 Output: Urine 21 20 5 Hemodialysis 2400 3400 Other: Voiding Method Indwelling Catheter Indwelling Catheter # Bowel Movements 0 0 ABP, PAP, CO, CI - Last Documented Arterial Blood Pressure 111/50 - Labs CBC & Chem 7: 08/30/23 03:20 08/30/23 16:30 Labs: Abnormal Lab Results - Last 24 Hours (Table) 08/29/23 08/30/23 08/30/23 Range/Units 23:25 03:20 03:20 WBC 38.7 H (3.8-10.6) k/uL RBC 3.65 L (4.30-5.90) m/uL Hgb 10.1 L (13.0-17.5) gm/dL Hct 33.8 L (39.0-53.0) % MCHC 29.9 L (31.0-37.0) g/dL RDW 16.6 H (11.5-15.5) % Neutrophils # 36.0 H (1.3-7.7) k/uL Lymphocytes # 0.6 L (1.0-4.8) k/uL Monocytes # 1.4 H (0-1.0) k/uL ABG pCO2 (35-45) mmHg ABG HCO3 (21-25) mmol/L ABG Total CO2 (19-24) mmol/L Sodium 136 L (137-145) mmol/L BUN 34 H (9-20) mg/dL Creatinine 2.75 H (0.66-1.25) mg/dL Glucose 236 H (74-99) mg/dL POC Glucose (mg/dL) 215 H (70-110) mg/dL 08/30/23 08/30/23 08/30/23 Range/Units 05:57 06:19 11:42 WBC (3.8-10.6) k/uL RBC (4.30-5.90) m/uL Hgb (13.0-17.5) gm/dL Hct (39.0-53.0) % MCHC (31.0-37.0) g/dL RDW (11.5-15.5) % Neutrophils # (1.3-7.7) k/uL Lymphocytes # (1.0-4.8) k/uL Monocytes # (0-1.0) k/uL ABG pCO2 48 H (35-45) mmHg ABG HCO3 27 H (21-25) mmol/L ABG Total CO2 29 H (19-24) mmol/L Sodium (137-145) mmol/L BUN (9-20) mg/dL Creatinine (0.66-1.25) mg/dL Glucose (74-99) mg/dL POC Glucose (mg/dL) 236 H 216 H (70-110) mg/dL 08/30/23 08/30/23 08/30/23 Range/Units 12:07 16:30 16:45 WBC (3.8-10.6) k/uL RBC (4.30-5.90) m/uL Hgb (13.0-17.5) gm/dL Hct (39.0-53.0) % MCHC (31.0-37.0) g/dL RDW (11.5-15.5) % Neutrophils # (1.3-7.7) k/uL Lymphocytes # (1.0-4.8) k/uL Monocytes # (0-1.0) k/uL ABG pCO2 (35-45) mmHg ABG HCO3 (21-25) mmol/L ABG Total CO2 (19-24) mmol/L Sodium 133 L (137-145) mmol/L BUN 29 H (9-20) mg/dL Creatinine 2.04 H (0.66-1.25) mg/dL Glucose 273 H (74-99) mg/dL POC Glucose (mg/dL) 213 H 262 H (70-110) mg/dL Microbiology - Last 24 Hours (Table) 08/29/23 01:17 Gram Stain - Preliminary Sputum Sputum Culture - Preliminary Presumptive Staph aureus 08/28/23 15:19 Urine Culture - Preliminary Urine,Voided Gram Neg Bacilli 08/28/23 22:30 Blood Culture - Preliminary Blood 08/28/23 21:50 Blood Culture - Preliminary Blood
[2023-08-30] MEDS: CEFEPIME 2 GM in SODIUM CHLORIDE 0.9% 100 ML IVPB SCH (20:23)
[2023-08-30 23:26] LABS: Glucose,Whole Blood 237 mg/dL (70-110)
[2023-08-31 04:39] LABS: Anisocytosis Slight; Basophils # (A) 0.1 k/uL (0-0.2); Basophils % (A) 0 %; Eosinophils # (A) 0.1 k/uL (0-0.7); Eosinophils % (A) 0 %; HCT 34.5 % (39.0-53.0); HGB 10.2 gm/dL (13.0-17.5); Hypochromasia Marked; Lymphocytes % (A) 3 %; MCH 27.4 pg (25.0-35.0); MCHC 29.6 g/dL (31.0-37.0); MCV 92.5 fL (80.0-100.0); Monocytes # (A) 1.3 k/uL (0-1.0); Monocytes % (A) 3 %; Neutrophils # (A) 34.5 k/uL (1.3-7.7); Neutrophils % (A) 92 %; Platelet Count 209 k/uL (150-450); RBC 3.73 m/uL (4.30-5.90); RDW 16.8 % (11.5-15.5); WBC 37.5 k/uL (3.8-10.6)
[2023-08-31 04:50] LABS: African American GFR (CKD) 31 (>60 ml/min/1.73 sqM); Anion Gap 8 mmol/L; Blood Urea Nitrogen 41 mg/dL (9-20); Calcium 8.7 mg/dL (8.4-10.2); Carbon Dioxide 24 mmol/L (22-30); Chloride 101 mmol/L (98-107); Glucose 294 mg/dL (74-99); Magnesium 2.1 mg/dL (1.6-2.3); Non-African American GFR(CKD) 27 (>60 ml/min/1.73 sqM); Potassium 4.4 mmol/L (3.5-5.1); Sodium 133 mmol/L (137-145)
[2023-08-31 05:44] LABS: Glucose,Whole Blood 328 mg/dL (70-110)
[2023-08-31 05:44] LABS: Glucose,Whole Blood 312 mg/dL (70-110)
[2023-08-31 06:16] LABS: ABG Base Excess 0.9 mmol/L; ABG HCO3 26 mmol/L (21-25); ABG Oxygen Saturation 94.7 % (94-97); ABG PCO2 46 mmHg (35-45); ABG PH 7.37 (7.35-7.45); ABG PO2 72 mmHg (83-108); ABG TCO2 28 mmol/L (19-24); Allen Test Performed? Yes
--- NOTE | 2023-08-31 06:22 | P.PN ---
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 Patient follows in the office with Dr. Abbasi. We have been asked to see the patient in consultation for congestive heart failure. Patient examined at the bedside in the emergency room. Patient was recently hospitalized in June 2023 and underwent right BKA. He was discharged to [facility] in [place]. Patient states he missed his hemodialysis session yesterday because he had an appointment that he could not miss so he decided to skip hemodialysis. The patient states he began to feel short of breath yesterday evening and was brought to the hospital for further evaluation. The patient un derwent hemodialysis this morning. He states his breathing has improved although he continues to be short of breath. He currently denies any chest pain or pressure. DIAGNOSTICS: - EKG reveals sinus mechanism with no signs of acute ischemia. Low voltage QRS. - Chest xray large right pleural effusion - Ultrasound of the chest reveals right chest wall soft tissue along the pleura with large pleural effusion. Small fluid pocket on the left. - Laboratory data: WBC 22.8. Hemoglobin 11.0. Platelet count 189. Sodium 132. Potassium 5.4. BUN 83. Creatinine 6.21. Troponin 0.035. proBNP 72,100. - Current home cardiac medications include amiodarone 200 mg daily, aspirin 81 mg daily, torsemide 40 mg daily, metoprolol tartrate 25 mg twice a day, midodrine 10 mg 3 times a day - Most recent echocardiogram obtained in June 2022 revealed ejection fraction less than 20%, severe pulmonary hypertension, moderate to severe MR, moderate TR - Cardiac catheterization history: February 2018 revealing minimal CAD August 23, 2023 Patient examined this morning at the bedside. Patient currently denies chest pain or pressure. He reports improvement in his shortness of breath. Patient underwent hemodialysis yesterday with removal of 3 L. He also underwent hemodialysis today with removal of 3 L. Telemetry reveals sinus mechanism with heart rate in the 70s. Blood pressure remains on the lower side with a systolic blood pressure in the 90s which is patient's baseline. August 24, 2023 Patient examined this morning at the bedside. Patient is somewhat lethargic at the time of examination. He denies chest pain or pressure. He reports shortness of breath. He is scheduled to undergo hemodialysis again today. Vital signs are stable. Echocardiogram completed revealing ejection fraction 15 to 20%, moderate mitral regurgitation, moderate tricuspid regurgitation, and moderate pulmonary hypertension August 25, 2023 Patient examined this morning at the bedside. Patient denies chest pain or pressure. He underwent hemodialysis yesterday. However, he remains dyspneic at the time of examination and is complaining of shortness of breath. He continues to have significant edema of his left leg, right stump, and abdomen. Blood pressure stable. Most recent blood pressure 98/64. 08/26 Patient is seen today in follow-up. He continues to have significant lower extremity abdominal edema. Patient was on BiPAP during the night currently on 5 L nasal cannula with pulse ox 95%, heart rate is running in the 80s, blood pressure 103/68. Repeat blood work reveals sodium 138, potassium 6, BUN 33 creatinine 3.38. ALT 284. Patient is having 4 L of fluid each dialysis treatment. His weight is documented to be improved from 111-95 however he continues to have significant edema. 08/27 Patient is currently on BiPAP and has a sitter at the bedside. He had dialysis with removal of 3 L of fluid. He seems to be a little more comfortable today and his respiratory status. Blood pressure is 92/54, heart rate in the 80s and 90s. Repeat blood work reveals sodium 132, potassium 4.3, BUN 28 creatinine 2.92. Chest x-ray moderate to large right pleural effusion with adjacent atelectasis and or consolidation. Noted that nephrology has recommended hospice. 08/28 Patient is currently undergoing hemodialysis and goal is for removal of 1 and half liters but his blood pressure is not tolerating this. He is also on BiPAP and has a sitter at the bedside. Heart rate is 110, respiratory rate 34, blood pressure prior to dialysis was 111/68 but dropping systolic down to the 80s. 08/29 Patient seen and examined. Patient was started on dobutamine drip yesterday however this has been discontinued. Patient had respiratory distress, altered mental status and intubated on 4. Currently remains intubated and on vasopressors with norepinephrine at 0.11. Ventilator with a PEEP of 5 and FiO2 50%. 08/30 Patient seen and examined. Patient remains intubated on FiO2 50% and a PEEP of 5. Receiving tube feeds at 30 mL per hour. Temporary guardian attempting to be set in place. On low-dose norepinephrine. 2/3 Patient seen and examined. Patient remains on ventilator with FiO2 50% PEEP of 5. He has had fevers overnight. Remains on norepinephrine at 0.13. Receiving tube feeds at 38 mL per hour. He did have dialysis yesterday with 3 L taken off. PHYSICAL EXAM: VITAL SIGNS: Reviewed. GENERAL: Lethargic but answering questions. HEENT: Head is normocephalic. Pupils are equal, round. Sclerae anicteric. LUNGS: Respirations labored. Lungs with decreased breath sounds and crackles HEART: Regular rate and rhythm. S1 and S2 heard. Systolic murmur noted. EXTREMITIES: Right AKA. 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 Nephrology is following. Hemodialysis and diuretics per nephrology. Continue additional cardiac medications Patient with progressive decline, not able to tolerate hemodialysis well, appears end-stage heart failure. Patient continues to decline and currently on vasopressors. Evaluate goals of care, appears hospice appropriate. Sinus tachycardia likely related to fevers, possible sepsis, anxiety. Objective - Vital Signs Vital signs: Vital Signs Temp 102.8 F H 08/31/23 05:45 Pulse 126 H 08/31/23 06:00 Resp 32 H 08/31/23 06:00 BP 104/67 08/31/23 06:00 Pulse Ox 95 08/31/23 06:00 FiO2 50 08/31/23 05:45 Intake & Output 08/30/23 08/30/23 08/31/23 06:59 18:59 06:59 Intake Total 1725.642 0571.698 980.816 Output Total 20 3405 0 Balance 1543.113 -1739.302 980.816 Weight 89.7 kg 90.8 kg Intake: IV 416 196 86 .9 20 240 160 .9 3cc/hr A-line 36 36 36 Cefepime 1 gm In Sodium 50 50 Chloride 0.9% 50 ml @ 12. 5 mls/hr IVPB Q12HR LAN Rx#:[id number] Invasive Line 5 30 Invasive Line 7 60 Intake, IV Titration 665.113 553.698 378.816 Amount Cefepime 1 gm In Sodium 50.0 Chloride 0.9% 50 ml @ 12. 5 mls/hr IVPB Q12HR LAN Rx#:[id number] Norepinephrine 4 mg In 500.871 303.955 Sodium Chloride 0.9% 250 ml @ 0.03 MCG/KG/MIN 11. 316 mls/hr IV .[id number] LAN Rx#:[id number] Norepinephrine 8 mg In 226.505 Sodium Chloride 0.9% 250 ml @ 0.03 MCG/KG/MIN 5. 207 mls/hr IV .Q24H LAN Rx#:[id number] propofoL 1,000 mg In 164.242 199.743 152.311 Empty Bag 1 bag @ 15 MCG/ KG/MIN 8.91 mls/hr IV . [id number] LAN Rx#:[id number] Tube Feeding 392 456 456 Hemodialysis 400 Other 90 60 60 Output: Urine 20 5 0 Hemodialysis 3400 Other: Voiding Method Indwelling Catheter # Voids 0 # Bowel Movements 0 ABP, PAP, CO, CI - Last Documented Arterial Blood Pressure 106/54 - Labs CBC & Chem 7: 08/31/23 04:20 08/31/23 04:20 Labs: Abnormal Lab Results - Last 24 Hours (Table) 08/30/23 08/30/23 08/30/23 Range/Units 06:19 11:42 12:07 WBC (3.8-10.6) k/uL RBC (4.30-5.90) m/uL Hgb (13.0-17.5) gm/dL Hct (39.0-53.0) % MCHC (31.0-37.0) g/dL RDW (11.5-15.5) % Neutrophils # (1.3-7.7) k/uL Monocytes # (0-1.0) k/uL ABG pCO2 48 H (35-45) mmHg ABG pO2 (83-108) mmHg ABG HCO3 27 H (21-25) mmol/L ABG Total CO2 29 H (19-24) mmol/L Sodium (137-145) mmol/L BUN (9-20) mg/dL Creatinine (0.66-1.25) mg/dL Glucose (74-99) mg/dL POC Glucose (mg/dL) 216 H 213 H (70-110) mg/dL 08/30/23 08/30/23 08/30/23 Range/Units 16:30 16:45 23:24 WBC (3.8-10.6) k/uL RBC (4.30-5.90) m/uL Hgb (13.0-17.5) gm/dL Hct (39.0-53.0) % MCHC (31.0-37.0) g/dL RDW (11.5-15.5) % Neutrophils # (1.3-7.7) k/uL Monocytes # (0-1.0) k/uL ABG pCO2 (35-45) mmHg ABG pO2 (83-108) mmHg ABG HCO3 (21-25) mmol/L ABG Total CO2 (19-24) mmol/L Sodium 133 L (137-145) mmol/L BUN 29 H (9-20) mg/dL Creatinine 2.04 H (0.66-1.25) mg/dL Glucose 273 H (74-99) mg/dL POC Glucose (mg/dL) 262 H 237 H (70-110) mg/dL 08/31/23 08/31/23 08/31/23 Range/Units 04:20 04:20 05:40 WBC 37.5 H (3.8-10.6) k/uL RBC 3.73 L (4.30-5.90) m/uL Hgb 10.2 L (13.0-17.5) gm/dL Hct 34.5 L (39.0-53.0) % MCHC 29.6 L (31.0-37.0) g/dL RDW 16.8 H (11.5-15.5) % Neutrophils # 34.5 H (1.3-7.7) k/uL Monocytes # 1.3 H (0-1.0) k/uL ABG pCO2 (35-45) mmHg ABG pO2 (83-108) mmHg ABG HCO3 (21-25) mmol/L ABG Total CO2 (19-24) mmol/L Sodium 133 L (137-145) mmol/L BUN 41 H (9-20) mg/dL Creatinine 2.57 H (0.66-1.25) mg/dL Glucose 294 H (74-99) mg/dL POC Glucose (mg/dL) 328 H (70-110) mg/dL 08/31/23 08/31/23 Range/Units 05:43 06:11 WBC (3.8-10.6) k/uL RBC (4.30-5.90) m/uL Hgb (13.0-17.5) gm/dL Hct (39.0-53.0) % MCHC (31.0-37.0) g/dL RDW (11.5-15.5) % Neutrophils # (1.3-7.7) k/uL Monocytes # (0-1.0) k/uL ABG pCO2 46 H (35-45) mmHg ABG pO2 72 L (83-108) mmHg ABG HCO3 26 H (21-25) mmol/L ABG Total CO2 28 H (19-24) mmol/L Sodium (137-145) mmol/L BUN (9-20) mg/dL Creatinine (0.66-1.25) mg/dL Glucose (74-99) mg/dL POC Glucose (mg/dL) 312 H (70-110) mg/dL Microbiology - Last 24 Hours (Table) 08/28/23 22:30 Blood Culture - Preliminary Blood 08/28/23 21:50 Blood Culture - Preliminary Blood 08/29/23 01:17 Gram Stain - Preliminary Sputum Sputum Culture - Preliminary Presumptive Staph aureus 08/28/23 15:19 Urine Culture - Preliminary Urine,Voided Gram Neg Bacilli
[2023-08-31] MEDS ORDERED: VANCOMYCIN IV PER PHARMACY 1 EACH MISC MISCELLANE PRN (07:51)
--- NOTE | 2023-08-31 08:16 | XR ---
EXAMINATION TYPE: XR chest 1V portable DATE OF EXAM: 08/31/2023 COMPARISON: August 30, 2023 HISTORY: SOB, Follow Up FINDINGS: Indwelling tubes and catheters are unchanged. No change in bibasilar opacities. Stable appearance of the cardio-mediastinal structures at this time. Pleural effusion unchanged. IMPRESSION: 1. Stable portable chest. Clinical correlation and follow up until resolution is recommended.
--- NOTE | 2023-08-31 09:18 | P.PN ---
Subjective Progress Note Date: 08/31/23 Principal diagnosis: Respiratory failure. Acute on chronic systolic congestive heart failure with fluid overload and right-sided pleural effusion This is a pleasant 53-year-old male patient with a known history of asthma, neck and ongoing tobacco dependence, marijuana use, coronary artery disease, congestive heart failure, chronic obstructive pulmonary disease, diabetes lambert itus, hyperlipidemia, hypertension, ischemic cardiomyopathy with previous AICD placement, nonhealing ulceration of the right heel with subsequent [id number] amputation on July 26, 2023, chronic kidney disease receiving hemodialysis Saturday, diabetes mellitus, obstructive sleep apnea with CPAP use. He missed his dialysis on Saturday due to having an important meeting to go to. He presented here late last night with worsening shortness of breath and dyspnea on exertion. He also had increased lower extremity edema. Chest x-ray revealed a large right pleural effusion. White count platelets 189. INR 1.4. Sodium 132. Potassium 5.4. Bicarb 23. BUN 83. Creatinine 6.21. Glucose 188. Pro BNP level 72,100. Troponin 0.035. Viral screen negative. Ultrasound of the right chest revealed a 10.6 cm pocket however there was lung tissue seen within the fluid. He is seen today in consultation in the emergency department. He is currently sitting up on the stretcher. Awake and alert in no acute distress. Only maintaining O2 saturation in the 90s on 3 L/min per nasal cannula. Has been afebrile. Hemodynamically stable Patient was reevaluated today on 08/23/2023, he is resting in bed, receiving hemodialysis, chest x-ray this morning continues to show good sized right-sided pleural effusion however the ultrasound showed lung tissue which would likely interfere with the thoracentesis hence I am recommending for now medical therapy/hemodialysis and ultrafiltration. If no improvement could consider repeat ultrasound and proceed with right-sided thoracentesis. Patient does not seem to be in distress, he is actually on 3 L nasal cannula, and his O2 satur ation is in the 90s. Blood pressure is stable. CBC is relatively normal basic metabolic profile is normal BUN is 62 creatinine 5.09 Patient was reevaluated today on 08/25/2023, patient underwent right-sided thoracentesis yesterday, doing well today, no coughing no wheezing, on 3 L nasal cannula with O2 sats of 98%. Patient is scheduled to have hemodialysis again today. The pleural effusion I drained yesterday came back to be exudative in nature, cultures are pending cytology is pending. BBC count today is 11.3 hemoglobin is 11 basic metabolic profile is normal BUN is 40 creatinine 3.46 Gr am stain on the pleural effusion is negative Progress note dated August 26, 2023. The patient appears to be doing relatively well. The patient is currently undergoing hemodialysis. The plan is to remove 4 L of fluid today. According to the nephrology nurse, the patient is going to have daily hemodialysis. Currently, he is on 5 L nasal cannula. He is not manifesting any signs or symptoms of respiratory distress. In addition, the patient can use BiPAP, with settings of 12/6, and 40%. No new labs today other than a phosphorus of 3.8, and a glucose of 119. Chest x-ray shows ongoing pulmonary vascular congestion, and a moderate right-sided pleural effusion, with some basilar atelectasis. Progress note dated August 27, 2023. 53-year-old male seen in room 370. He is currently undergoing hemodialysis. The patient could not sustain himself on nasal cannula, so is back on BiPAP, wi th settings of 12/6, and 40%. The plan for hemodialysis today is to remove 3 L of fluid. The patient is not receiving any IV fluids either. Labs today include a sodium 132, potassium 4.3, chloride 96, CO2 23, anion gap 13, BUN 28, creatinine 2.92. Glucose is 129 with a calcium of 8.9. Chest x-ray from today shows a large right-sided pleural effusion, with adjacent atelectasis. In addition, there is evidence of vascular overload. Progress note dated August 28, 2023. 53-year-old male seen in room 370. The patient is currently undergoing hemodialysis. He is currently on BiPAP, with settings of 13/6 and 40%. The plan for hemodialysis today is removal of 3 L of fluid. Yesterday, August 27, he had 3.1 L of fluid removed. The patient had an ultrasound of his chest ordered by the primary service. There is a small pocket of fluid on the right, only measuring 3.7 cm. There appears to be some debris in the pleural space as well. The left pleural space has no fluid. We tried to have a conversation with the patient yesterday about CODE STATUS, but I do not believe he was lucid enough to understand the conversation. Current labs today include a glucose of 167. Labs from yesterday, reviewed. His BUN and creatinine from yesterday was 28 and 2.92. Progress note dated August 29, 2023. 53-year-old male who developed acute respiratory failure yesterday, requiring intubation and mechanical ventilation. The patient was transferred to the intensive care unit. A left subclavian triple-lumen catheter was placed, as well as a left radial arterial line. Currently, the patient remains on the mechanical ventilator. Settings include volume assist-control, rate 28, tidal volume 450, FiO2 50%, PEEP of 5. Blood gases show pO2 of 74, pCO2 of 45, pH 7.37. The patient is on propofol at 25 mcg/kg/min, saline at 20 cc an hour, and norepinephrine at 11 mcg/min. The patient's procalcitonin level was 2. The patient is on cefepime. Tube feedings will be started today. White count is 41.2, hemoglobin 9.7, hematocrit 33.1, and platelet count 251,000. Sodium 136, potassium 3.8, chloride 98, CO2 24, anion gap 14, BUN 34, creatinine 3.09. Calcium is 9.2. Glucose is 175. Pleural fluid analysis is negative. Chest x- ray shows some minimal perihilar opacity on the right side, and a small right- sided pleural effusion. Progress note dated August 30, 2023. 53-year-old male seen in the intensive care unit, room 256. He remains on the mechanical ventilator. His ventilator settings include volume assist-control, rate 28, tidal volume 450, FiO2 50%, PEEP of 5. Blood gases show a pO2 of 93, pCO2 of 48, pH of 7.36. The patient is currently on propofol 25 mcg/kg/min, and norepinephrine at 10 mcg/min. No IV fluids. Hemodialysis is being done today. The plan is to remove 3 L. He is getting Nepro at 38 cc an hour, which is goal. He continues on cefepime. White count 38.7, hemoglobin 10.1, hematocrit 33.8, and platelet count 204,000. Sodium 136, potassium 3.7, chloride 102, CO2 26, BUN 34, creatinine 2.75. Glucose is 236. Calcium 9, magnesium 2.1. Urine reveals gram-negative bacilli. Chest x-ray shows diminished lung volumes on the right, with some atelectasis or infiltrate at the right lung base, and a right- sided pleural effusion. The patient continues on cefepime. Progress note dated August 31, 2023. 53-year-old male seen in the intensive care unit, room 256. The patient remains on the mechanical ventilator. He is on the volume assist-control, rate 28, tidal volume 450, FiO2 50%, and PEEP of 5. Blood gases show pO2 of 72, pCO2 of 46, and a pH of 7.37. The patient remains on propofol at 15 mcg/kg/min, and norepinephrine at 11 mcg/min. The patient is getting Nepro at 38 cc an hour, which is goal. The patient is currently on cefepime. Will add some vancomycin. Microbiology showing gram-negative bacilli in the urine, and presumptive Staph aureus in the sputum from August 29. Chest x-ray shows bilateral infiltrates. Chest x-ray is essentially unchanged. Objective - Vital Signs Vital signs: Vital Signs Temp 103 F H 08/31/23 06:15 Pulse 120 H 08/31/23 07:59 Resp 28 H 08/31/23 07:00 BP 107/72 08/31/23 07:00 Pulse Ox 96 08/31/23 07:00 FiO2 50 08/31/23 07:55 Intake & Output 08/30/23 08/31/23 08/31/23 18:59 06:59 18:59 Intake Total 1665.698 985.172 41 Output Total 3405 0 0 Balance -1739.302 985.172 41 Weight 90.8 kg Intake: IV 196 86 3 .9 20 160 .9 3cc/hr A-line 36 36 3 Cefepime 1 gm In Sodium 50 Chloride 0.9% 50 ml @ 12. 5 mls/hr IVPB Q12HR LAN Rx#:[id number] Intake, IV Titration 553.698 383.172 Amount Cefepime 1 gm In Sodium 50.0 Chloride 0.9% 50 ml @ 12. 5 mls/hr IVPB Q12HR LAN Rx#:[id number] Norepinephrine 4 mg In 303.955 Sodium Chloride 0.9% 250 ml @ 0.03 MCG/KG/MIN 11. 316 mls/hr IV .[id number] LAN Rx#:[id number] Norepinephrine 8 mg In 226.505 Sodium Chloride 0.9% 250 ml @ 0.03 MCG/KG/MIN 5. 207 mls/hr IV .Q24H LAN Rx#:[id number] propofoL 1,000 mg In 199.743 156.667 Empty Bag 1 bag @ 15 MCG/ KG/MIN 8.91 mls/hr IV . [id number] LAN Rx#:[id number] Tube Feeding 456 456 38 Hemodialysis 400 Other 60 60 Output: Urine 5 0 0 Hemodialysis 3400 Other: # Voids 0 ABP, PAP, CO, CI - Last Documented Arterial Blood Pressure 101/52 - Exam No acute distress, sedated, with an orally placed endotracheal tube, and NG tube. HEENT examination is grossly unremarkable. Neck supple. Full range of motion. No adenopathy thyromegaly or neck vein distention. Cardiovascular examination reveals regular rhythm rate. S1-S2 normal. No S3 or S4. No discernible murmur noted. Heart rate 100 bpm. Heart sounds are distant. Lungs reveal bilateral crackles and rhonchi. Breath sounds are equal bilaterally. No wheezes. Saturations are 96 % on the ventilator. Abdomen is soft, but obese. Bowel sounds are noted. Extremities are intact. No cyanosis or clubbing. Bilateral lower extremity edema is noted. Skin is without rash or lesion. Neurologic examination cannot be assessed at this time. - Labs CBC & Chem 7: 08/31/23 04:20 08/31/23 04:20 Labs: Abnormal Lab Results - Last 24 Hours (Table) 08/30/23 08/30/23 08/30/23 Range/Units 11:42 12:07 16:30 WBC (3.8-10.6) k/uL RBC (4.30-5.90) m/uL Hgb (13.0-17.5) gm/dL Hct (39.0-53.0) % MCHC (31.0-37.0) g/dL RDW (11.5-15.5) % Neutrophils # (1.3-7.7) k/uL Monocytes # (0-1.0) k/uL ABG pCO2 (35-45) mmHg ABG pO2 (83-108) mmHg ABG HCO3 (21-25) mmol/L ABG Total CO2 (19-24) mmol/L Sodium 133 L (137-145) mmol/L BUN 29 H (9-20) mg/dL Creatinine 2.04 H (0.66-1.25) mg/dL Glucose 273 H (74-99) mg/dL POC Glucose (mg/dL) 216 H 213 H (70-110) mg/dL 08/30/23 08/30/23 08/31/23 Range/Units 16:45 23:24 04:20 WBC 37.5 H (3.8-10.6) k/uL RBC 3.73 L (4.30-5.90) m/uL Hgb 10.2 L (13.0-17.5) gm/dL Hct 34.5 L (39.0-53.0) % MCHC 29.6 L (31.0-37.0) g/dL RDW 16.8 H (11.5-15.5) % Neutrophils # 34.5 H (1.3-7.7) k/uL Monocytes # 1.3 H (0-1.0) k/uL ABG pCO2 (35-45) mmHg ABG pO2 (83-108) mmHg ABG HCO3 (21-25) mmol/L ABG Total CO2 (19-24) mmol/L Sodium (137-145) mmol/L BUN (9-20) mg/dL Creatinine (0.66-1.25) mg/dL Glucose (74-99) mg/dL POC Glucose (mg/dL) 262 H 237 H (70-110) mg/dL 08/31/23 08/31/23 08/31/23 Range/Units 04:20 05:40 05:43 WBC (3.8-10.6) k/uL RBC (4.30-5.90) m/uL Hgb (13.0-17.5) gm/dL Hct (39.0-53.0) % MCHC (31.0-37.0) g/dL RDW (11.5-15.5) % Neutrophils # (1.3-7.7) k/uL Monocytes # (0-1.0) k/uL ABG pCO2 (35-45) mmHg ABG pO2 (83-108) mmHg ABG HCO3 (21-25) mmol/L ABG Total CO2 (19-24) mmol/L Sodium 133 L (137-145) mmol/L BUN 41 H (9-20) mg/dL Creatinine 2.57 H (0.66-1.25) mg/dL Glucose 294 H (74-99) mg/dL POC Glucose (mg/dL) 328 H 312 H (70-110) mg/dL 08/31/23 Range/Units 06:11 WBC (3.8-10.6) k/uL RBC (4.30-5.90) m/uL Hgb (13.0-17.5) gm/dL Hct (39.0-53.0) % MCHC (31.0-37.0) g/dL RDW (11.5-15.5) % Neutrophils # (1.3-7.7) k/uL Monocytes # (0-1.0) k/uL ABG pCO2 46 H (35-45) mmHg ABG pO2 72 L (83-108) mmHg ABG HCO3 26 H (21-25) mmol/L ABG Total CO2 28 H (19-24) mmol/L Sodium (137-145) mmol/L BUN (9-20) mg/dL Creatinine (0.66-1.25) mg/dL Glucose (74-99) mg/dL POC Glucose (mg/dL) (70-110) mg/dL Microbiology - Last 24 Hours (Table) 08/28/23 22:30 Blood Culture - Preliminary Blood 08/28/23 21:50 Blood Culture - Preliminary Blood 08/29/23 01:17 Gram Stain - Preliminary Sputum Sputum Culture - Preliminary Presumptive Staph aureus 08/28/23 15:19 Urine Culture - Preliminary Urine,Voided Gram Neg Bacilli Assessment and Plan Assessment: Acute hypoxemic and hypercapnic respiratory failure, S/P intubation, and mechanical ventilation, on August 28, 2023. Acute on chronic systolic congestive heart failure, secondary to fluid volume overload from missed hemodialysis. Ischemic cardiomyopathy, with an ejection fraction of 20%. Status postplacement of a automatic implantable cardiac defibrillator. Stage III chronic kidney disease, secondary to diabetic nephropathy, currently on hemodialysis, Saturday and Saturday. Acute kidney injury secondary to recently missed hemodialysis session. Recent right [id number] amputation secondary to an infected right heel diabetic ulcer. Lower extremity chronic venous insufficiency. History of chronic tobacco dependence, with underlying COPD. History of marijuana use. Type 2 diabetes mellitus, controlled with insulin. Hyperlipidemia. Moderate to severe mitral regurgitation/moderate tricuspid regurgitation, and severe pulmonary hypertension. Chronic low back pain. Essential hypertension. Obstructive sleep apnea syndrome, intermittent use of CPAP. Diabetic peripheral neuropathy. Status post right-sided thoracentesis, with nearly 1200 cc drained. Plan: Plan dated August 26, 2023. The patient will apparently have daily hemodialysis for the time being, according to nephrology. The patient is on nasal cannula at 5 L, or BiPAP, at 12/6, and 40%. The patient appears chronically ill. He continues on bronch odilators. The patient did have a right-sided thoracentesis. The patient is currently on 5 L, or BiPAP. Labs, x-rays, medications are reviewed. The patient's overall prognosis remains guarded. He looks much older than his stated age of 53 years. We will continue to follow make recommendations along the way. Plan dated August 27, 2023. The patient is currently on hemodialysis. The plan is to remove about 3 L today. The patient's chest x-ray is reviewed. Labs, and medications were also reviewed. The patient's BiPAP settings are 12/6, and 40%. The patient is not receiving any IV fluids. I tried to have a conversation with the patient today about CODE STATUS. The patient was in and out, and really could not have an intelligent conversation about CODE STATUS, and whether or not he would want intubation with mechanical ventilation. According to the nurse, the patient's ex- wants nothing to do with the patient. Not sure that there is any other family members. Prognosis is poor. We will continue to follow, and make recommendations along the way. Plan dated August 28, 2023. The patient looks about the same today as he did yesterday. He continues on BiPAP, with settings of 13/6, and 40%. The patient had hemodialysis yesterday, with 3.1 L of fluid removed. The goal was to remove 3 L today. Labs, x-rays, and medications are reviewed. The patient's overall prognosis is not very good. An ultrasound was ordered by the primary hospital service. There is no fluid on the left. A very small pocket of 3.7 cm on the right. There was some debris in the pleural space as well. I do not believe thoracentesis would be warranted at this time. The patient is a full code. We attempted to have a conversation with him yesterday, but I do not believe he was lucid to understand the conversation, and as to whether or not he would want to be on life support. Plan dated August 29, 2023. Yesterday, the patient developed acute hypoxemic and hypercapnic respiratory failure. The patient was transferred down to the intensive care unit, where he was intubated by anesthesia. A left subclavian triple-lumen catheter was placed, as well as a left radial arterial line. The patient remains on the ventilator. He is on propofol at 25 mcg/kg/min, saline at 20 cc an hour, norepinephrine at 11 mcg/min. Will start tube feedings today. His procalcitonin level was 2. He is on cefepime. Labs, x-rays, and medications are reviewed. The patient's overall prognosis remains rather poor. Unfortunately, there were no family members available. We will continue to fo llow the patient, make recommendations along the way. Prognosis is poor. Plan dated August 30, 2023. The patient is seen today in room 256. The patient remains on the mechanical ventilator. The patient is receiving norepinephrine at 10 mcg/min, and propofol at 25 mcg/kg/min. No additional IV fluids. The patient had hemodialysis this morning. The goal is to remove 3 L. The patient is receiving tube feedings at goal. We will plan on doing daily interruption of sedation today, and to elizabeth luate the patient for possible spontaneous breathing trial. Additional recommendations and suggestions are forthcoming. Labs, x-rays, and medications are reviewed. Prognosis is certainly very poor. We will continue to follow. Plan dated August 31, 2023. The patient is seen today in room 256. The patient remains on mechanical ventilator. The patient did have a daily interruption of sedation yesterday, he did not have a spontaneous breathing trial. His mental status was poor. The patient continues on propofol, and norepinephrine at 11 mcg/min. The patient is receiving tube feedings with Nepro, at goal. The patient has a gram-negative bacilli in the urine, and for that he is on cefepime. His sputum reveals presumptive staph. We added vancomycin. Labs, x-rays, and medications are reviewed. We will continue to follow make recommendations along the way. Overall, the patient's prognosis is very poor. Time with Patient: Greater than 30
--- NOTE | 2023-08-31 09:55 | P.PN ---
Subjective Progress Note Date: 08/31/23 Patient seen in follow-up for end-stage renal disease. He is maintained on hemodialysis on Saturday schedule. Has been receiving daily dialysis this admission. He is on Levophed. Seen while on HD today. Vital signs are stable. On vasopressor support. General: Resting in bed. HEENT: Intubated. LUNGS: No audible rhonchi or wheezes. HEART: Rate and Rhythm are regular. ABDOMEN: Obese. EXTREMITITES: Right AKA noted. 1+ edema. Objective - Vital Signs Vital signs: Vital Signs Temp 102.7 F H 08/31/23 09:00 Pulse 121 H 08/31/23 09:30 Resp 30 H 08/31/23 09:30 BP 104/70 08/31/23 08:15 Pulse Ox 97 08/31/23 09:30 FiO2 50 08/31/23 08:00 Intake & Output 08/30/23 08/31/23 08/31/23 18:59 06:59 18:59 Intake Total 1665.698 985.172 217.879 Output Total 3405 0 0 Balance -1739.302 985.172 217.879 Weight 90.8 kg Intake: IV 196 86 9 .9 20 160 .9 3cc/hr A-line 36 36 9 Cefepime 1 gm In Sodium 50 Chloride 0.9% 50 ml @ 12. 5 mls/hr IVPB Q12HR LAN Rx#:[id number] Intake, IV Titration 553.698 383.172 131.879 Amount Cefepime 1 gm In Sodium 50.0 Chloride 0.9% 50 ml @ 12. 5 mls/hr IVPB Q12HR LAN Rx#:[id number] Cefepime 2 gm In Sodium 100 Chloride 0.9% 100 ml @ 25 mls/hr IVPB Q12HR LAN Rx #:[id number] Norepinephrine 4 mg In 303.955 Sodium Chloride 0.9% 250 ml @ 0.03 MCG/KG/MIN 11. 316 mls/hr IV .[id number] LAN Rx#:[id number] Norepinephrine 8 mg In 226.505 Sodium Chloride 0.9% 250 ml @ 0.03 MCG/KG/MIN 5. 207 mls/hr IV .Q24H LAN Rx#:[id number] propofoL 1,000 mg In 199.743 156.667 31.879 Empty Bag 1 bag @ 15 MCG/ KG/MIN 8.91 mls/hr IV . [id number] LAN Rx#:[id number] Tube Feeding 456 456 77 Hemodialysis 400 Other 60 60 Output: Urine 5 0 0 Hemodialysis 3400 Other: # Voids 0 ABP, PAP, CO, CI - Last Documented Arterial Blood Pressure 106/54 - Labs CBC & Chem 7: 08/31/23 04:20 08/31/23 04:20 Labs: Abnormal Lab Results - Last 24 Hours (Table) 08/30/23 08/30/23 08/30/23 Range/Units 11:42 12:07 16:30 WBC (3.8-10.6) k/uL RBC (4.30-5.90) m/uL Hgb (13.0-17.5) gm/dL Hct (39.0-53.0) % MCHC (31.0-37.0) g/dL RDW (11.5-15.5) % Neutrophils # (1.3-7.7) k/uL Monocytes # (0-1.0) k/uL ABG pCO2 (35-45) mmHg ABG pO2 (83-108) mmHg ABG HCO3 (21-25) mmol/L ABG Total CO2 (19-24) mmol/L Sodium 133 L (137-145) mmol/L BUN 29 H (9-20) mg/dL Creatinine 2.04 H (0.66-1.25) mg/dL Glucose 273 H (74-99) mg/dL POC Glucose (mg/dL) 216 H 213 H (70-110) mg/dL 08/30/23 08/30/23 08/31/23 Range/Units 16:45 23:24 04:20 WBC 37.5 H (3.8-10.6) k/uL RBC 3.73 L (4.30-5.90) m/uL Hgb 10.2 L (13.0-17.5) gm/dL Hct 34.5 L (39.0-53.0) % MCHC 29.6 L (31.0-37.0) g/dL RDW 16.8 H (11.5-15.5) % Neutrophils # 34.5 H (1.3-7.7) k/uL Monocytes # 1.3 H (0-1.0) k/uL ABG pCO2 (35-45) mmHg ABG pO2 (83-108) mmHg ABG HCO3 (21-25) mmol/L ABG Total CO2 (19-24) mmol/L Sodium (137-145) mmol/L BUN (9-20) mg/dL Creatinine (0.66-1.25) mg/dL Glucose (74-99) mg/dL POC Glucose (mg/dL) 262 H 237 H (70-110) mg/dL 08/31/23 08/31/23 08/31/23 Range/Units 04:20 05:40 05:43 WBC (3.8-10.6) k/uL RBC (4.30-5.90) m/uL Hgb (13.0-17.5) gm/dL Hct (39.0-53.0) % MCHC (31.0-37.0) g/dL RDW (11.5-15.5) % Neutrophils # (1.3-7.7) k/uL Monocytes # (0-1.0) k/uL ABG pCO2 (35-45) mmHg ABG pO2 (83-108) mmHg ABG HCO3 (21-25) mmol/L ABG Total CO2 (19-24) mmol/L Sodium 133 L (137-145) mmol/L BUN 41 H (9-20) mg/dL Creatinine 2.57 H (0.66-1.25) mg/dL Glucose 294 H (74-99) mg/dL POC Glucose (mg/dL) 328 H 312 H (70-110) mg/dL 08/31/23 Range/Units 06:11 WBC (3.8-10.6) k/uL RBC (4.30-5.90) m/uL Hgb (13.0-17.5) gm/dL Hct (39.0-53.0) % MCHC (31.0-37.0) g/dL RDW (11.5-15.5) % Neutrophils # (1.3-7.7) k/uL Monocytes # (0-1.0) k/uL ABG pCO2 46 H (35-45) mmHg ABG pO2 72 L (83-108) mmHg ABG HCO3 26 H (21-25) mmol/L ABG Total CO2 28 H (19-24) mmol/L Sodium (137-145) mmol/L BUN (9-20) mg/dL Creatinine (0.66-1.25) mg/dL Glucose (74-99) mg/dL POC Glucose (mg/dL) (70-110) mg/dL Microbiology - Last 24 Hours (Table) 08/28/23 22:30 Blood Culture - Preliminary Blood 08/28/23 21:50 Blood Culture - Preliminary Blood 08/29/23 01:17 Gram Stain - Preliminary Sputum Sputum Culture - Preliminary Presumptive Staph aureus 08/28/23 15:19 Urine Culture - Preliminary Urine,Voided Gram Neg Bacilli Assessment and Plan Plan: Assessment: 1. End-stage renal disease maintained on hemodialysis on Saturday schedule. 2. Volume overload. Improving with ultrafiltration. 3. Chronic kidney disease mineral bone disease maintained on PhosLo. Phosp horus level 3.8 dated August 26, 2023. 4. Diabetes mellitus. 5. Acute on chronic systolic CHF with ejection fraction of 15 to 20% with moderate mitral and tricuspid regurgitation and moderate pulmonary hypertension. 6. Acute hypoxic respiratory failure. Intubated. Plan: Continue with daily dialysis. Seen on HD today, next treatment Saturday. Maintain midodrine. Wean Levophed. Prognosis guarded. Hospice should be considered. Guardianship being obtained.
[2023-08-31] MEDS: VANCOMYCIN 1,500 MG in SODIUM CHLORIDE 0.9% 500 ML 500 ML IVPB SCH (10:48)
[2023-08-31 12:05] LABS: Glucose,Whole Blood 284 mg/dL (70-110)
--- NOTE | 2023-08-31 13:03 | CT ---
EXAMINATION TYPE: CT brain wo con DATE OF EXAM: 08/31/2023 COMPARISON: 06/20/2023 HISTORY: AMS CT DLP: 1197.[address] of the brain was performed. The ventricles, basal cisterns and sulci overlying the cerebral convexities demonstrate mild enlargem ent. There is decreased attenuation left frontal lobe is unchanged from prior study. There is no evidence for intracranial hemorrhage or sulcal effacement. There is decreased attenuation about the periventricular white matter and deep white matter of both c erebral hemispheres, compatible with chronic small vessel ischemia. Differential diagnosis does inclu de demyelination. No mass effects are seen.No midline shift. Osseous calvarium is intact. If symptoms persist consider MRI. IMPRESSION: 1. Age related atrophic and chronic small vessel ischemic change without acute intracranial process s een at this time.
--- NOTE | 2023-08-31 14:44 | P.PN ---
Progress Note - Text Progress Note Date: 08/31/23 Chief Complaint: Short of breath This is a 53-year-old patient, follows with Dr. Rodríguez. Chronic stable medical condition include CHF EF less than 20%, COPD, diabetes mellitus type 2, hypertension, hyperlipidemia, obstructive sleep apnea, anxiety, AICD, lower extremity venous insufficiency. Patient had lower extremity wounds for which she followed with Dr. Kaur from vascular and ID Dr. Abbasi. Multiple admissions. Patient finally agreed to amputation for the right foot wound that was not healing.. Finally on July 26 patient underwent right above-knee amputation by Dr. Kaur from vascular. Patient was [facility] a [facility]. Patient had been noncompliant with hemodialysis prior to that admission. Patient presented to our ER after being progressively increasing shortness of breath. He missed his dialysis yesterday. He became increasingly short of breath. Increasing edema. Some cough. Denies any fever and chills. Tired. Nephrology was called. Patient getting 3 L removed with dialysis today. Patient currently a resident of [facility]. Patient received midodrine today before started dialysis August 23: Tolerated breakfast well. 3 L of fluid being removed today. Patient is due for his generator change on August 28. Cardiology consulted and informed. Has edema. August 24: Oral intake good. Diet. Dialysis per nephrology. Right-sided thoracentesis 1156 cc removed. By pulmonary August 25: Tired. Congested chest. Short of breath. Pulse ox 87% on room air. August 26: Slightly less short of breath. To still present. Getting 4 L removed today. Blood pressure running in the 90s. But more awake August 27: Remains short of breath. BiPAP. Easily gets short winded. Getting dialysis again today. About 3 L plan to be removed. Some decrease in edema. Chest x-ray showing significant right-sided pleural effusion. Hopefully patient will benefit from right thoracentesis. We can have a further discussion with him about CODE STATUS in that case. Patient lives with his 20-year-old son. Dr. GIBSON from pulmonary following August 28: Remains on BiPAP. Somewhat lethargic. Did attempt to speak to the patient Yumiko CODE STATUS. I felt he started send no but given his mentation cannot be sure. Did communicate with Dr. GIBSON from pulmonary. Does not feel there is any significant fluid on the right side for thoracentesis. Dialysis today again. 2200 cc removed. Prognosis guarded. Poor oral intake. Right side could also be infiltrate given the elevated white count. Add cefepime August 29: Patient was moved to the ICU yesterday for further respiratory distr ess. Intubated. Patient on IV propofol and Levophed. On ventilator support. Spoke to the nurse to see if he can get the local authorities/progress to contact patient's son and have him come in. Patient's ex- is completely estranged from him. Has no other known family. I discussed with Dr. Mares from nephrology. We both agree that patient's prognosis is very poor. And hospice would be appropriate. August 30: ICU. Remains intubated. FiO2 50 and PEEP of 5. Drips include IV propofol and norepinephrine. Tube feeding through NG tube 30 cc an hour. No family can be tracked down. Temporary guardian hearing scheduled for 09/06/2023 at 8:30 AM.. FiO2 50 and a PEEP of 5. August 31: ICU. Intubated. IV drips include propofol and norepinephrine. Tube feeding through NG tube. Sedated. Hemodialysis today. Febrile. Vancomycin added. Blood cultures, peripherally and through dialysis catheter. Active Medications Acetaminophen (Acetaminophen Tab 325 Mg Tab) 650 mg PO Q6HR PRN PRN Reason: Mild Pain or Fever > 100.5 Last Admin: 08/31/23 09:06 Dose: 650 mg Hydrocodone Bitart/Acetaminophen (Hydrocodone/Apap 5-325mg 1 Each Tab) 1 each PO Q8HR [facility] Last Admin: 08/31/23 09:06 Dose: 1 each Albuterol/Ipratropium (Ipratropium-Albuterol 3 Ml Neb) 3 ml INHALATION RT-Q2H PRN PRN Reason: Shortness Of Breath Or Wheezing Last Admin: 08/25/23 03:36 Dose: 3 ml Albuterol/Ipratropium (Ipratropium-Albuterol 3 Ml Neb) 3 ml INHALATION RT-Q4H [facility] Last Admin: 08/31/23 11:07 Dose: 3 ml Amiodarone HCl (Amiodarone 200 Mg Tab) 200 mg PO DAILY [facility] Last Admin: 08/31/23 09:06 Dose: 200 mg Aspirin (Aspirin 81 Mg) 81 mg PO DAILY [facility] Last Admin: 08/31/23 09:06 Dose: 81 mg Calcium Acetate (Calcium Acetate 667 Mg Tab) 667 mg PO TID-W/MEALS [facility] Last Admin: 08/31/23 13:06 Dose: 667 mg Calcium Carbonate/Glycine (Calcium Carbonate 500 Mg Chewable) 1,000 mg PO Q4HR PRN PRN Reason: Dyspepsia Chlorhexidine Gluconate (Chlorhexidine Gluconate 15 Ml Cup) 15 ml MUCOUS MEM BID [facility] Last Admin: 08/31/23 09:06 Dose: 15 ml Dextrose/Water (Dextrose 50% Syringe 50 Ml) 25 ml IVP PER PROTOCOL PRN; Protocol PRN Reason: Hypoglycemia Last Admin: 08/25/23 12:36 Dose: 25 ml Dextrose/Water (Dextrose 50% Syringe 50 Ml) 50 ml IVP PER PROTOCOL PRN; Protocol PRN Reason: Hypoglycemia Duloxetine HCl (Duloxetine Hcl 30 Mg Capsule.Dr) 30 mg PO DAILY [facility] Last Admin: 08/31/23 09:06 Dose: 30 mg Enoxaparin Sodium (Enoxaparin 30 Mg/0.3 Ml Syringe) 30 mg SQ DAILY [facility] Last Admin: 08/31/23 09:06 Dose: 30 mg Famotidine (Famotidine 20 Mg Tab) 20 mg PO DAILY [facility] Last Admin: 08/31/23 09:06 Dose: 20 mg Fluphenazine HCl (Fluphenazine 1 Mg Tab) 3 mg PO HS [facility] Last Admin: 08/30/23 20:25 Dose: 3 mg Propofol 1,000 mg/ IV Solution 100 mls @ 8.91 mls/hr IV .[id number] [facility]; Protocol Last Titration: 08/31/23 12:00 Dose: 15 mcg/kg/min, 8.91 mls/hr Cefepime HCl 2 gm/ Sodium (Chloride) 100 mls @ 25 mls/hr IVPB Q12HR [facility] Last Admin: 08/31/23 09:05 Dose: 25 mls/hr Norepinephrine Bitartrate 8 mg (/ Sodium Chloride) 258 mls @ 5.207 mls/hr IV .Q24H [facility]; Protocol Last Admin: 08/31/23 13:31 Dose: 0.14 mcg/kg/min, 24.3 mls/hr Vancomycin HCl 1,500 mg/ (Sodium Chloride) 500 mls @ 167 mls/hr IVPB Q24H [facility]; Protocol Last Admin: 08/31/23 10:48 Dose: 167 mls/hr Insulin Aspart (Insulin Aspart (Novolog) 100 Unit/Ml Vial) 0 unit SQ Q6HR [facility]; Protocol Last Admin: 08/31/23 12:24 Dose: 6 unit Insulin Detemir (Insulin Detemir (Levemir) 100 Unit/Ml Syr) 10 unit SQ HS [facility] Last Admin: 08/30/23 20:25 Dose: 10 unit Lactulose (Lactulose 20 Gm/30 Ml Cup) 20 gm PO DAILY PRN PRN Reason: Constipation Midodrine (Midodrine 5 Mg Tab) 10 mg PO AC-TID [facility] Last Admin: 08/31/23 13:06 Dose: 10 mg Multivitamins (Multivitamins, Thera 1 Each Tab) 1 each PO DAILY [facility] Last Admin: 08/31/23 09:06 Dose: 1 each Naloxone HCl (Naloxone 0.4 Mg/Ml 1 Ml Vial) 0.2 mg IV Q2M PRN PRN Reason: Opioid Reversal Nystatin (Nystatin 100,000 Unit/Ml Susp 500,000 Unit/5 Ml Cup) 500,000 unit PO QID [facility]; Protocol Last Admin: 08/31/23 13:06 Dose: 500,000 unit Ondansetron HCl (Ondansetron 4 Mg/2 Ml Vial) 4 mg IVP Q8HR PRN PRN Reason: Nausea And Vomiting Pantoprazole Sodium (Pantoprazole 40 Mg/10 Ml Vial) 40 mg IVP HS [facility] Last Admin: 08/30/23 20:25 Dose: 40 mg Petrolatum (Zinc Oxide Paste (Z-Guard) 1 Applic) 1 applic TOPICAL DAILY PRN; Protocol PRN Reason: Wound Healing Trazodone HCl (Trazodone Hcl 50 Mg Tab) 50 mg PO HS PRN PRN Reason: Agitation Social history: Lives with his 20-year-old son. Disabled. 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 Smoking 2 packs a day for most of his life . Stop drinking heavy alcohol about 20 years ago. Has done marijuana. Physical examination: VITAL SIGNS: 102.7, 115, 28, 105/50, 98% on the ventilator GENERAL: Intubated sedated EYES: Pupils equal. Conjunctiva normal. HEENT: External appearance of nose and ears normal, ET tube NECK: JVD raised; masses not palpable. HEART: First and second heart sounds are normal; significant edema LUNGS: Respiratory rate increased; diminished breath sounds ABDOMEN: Soft, nontender, liver spleen not palpable, no masses palpable. PSYCH: Sedated NEUROLOGICAL: Sedated DERMATOLOGICAL: Right above-knee amputation. Left lower extremity wound INVESTIGATIONS, reviewed in the clinical context: August 31: White count 37.5 hemoglobin 10.2 potassium 4.4 creatinine 2.57 August 29: White count 41.2 hemoglobin 9.7 platelets 251 potassium 3.8 BUN 34 creatinine 3.09 August 28: White count 24.8 hemoglobin 10 ABG: pH 7.28 pCO2 57 BUN 24 creatinine 2.44 August 27: Sodium 132 potassium 4.3 creatinine 2.92 August 23: White count 13.9 hemoglobin 10.9 platelets 194 potassium 5.2 BUN 62 creatinine 5.09 August 21, 2023: White count 22.8 hemoglobin 11 platelets were 89 sodium 132 potassium 5.4 BUN 83 creatinine 6.21 Troponin I 0.035. proBNP 56209 Influenza type A, type B, RSV, COVID-19: Not detected EKG tracing personally reviewed by me-normal sinus rhythm. Chest x-ray film personally reviewed by me-large right pleural effusion Chest ultrasound: Large right pleural effusion Assessment and plan: -Acute on chronic congestive heart failure nonischemic cardiomyopathy systolic dysfunction EF less than 20%: Worsening from missed hemodialysis.: Slow to respond Hemodialysis-as per nephrology AICD. Fluid restriction 1500 mL. Follow-up with cardiology and nephrology -New onset of severe sepsis Patient already on cefepime. IV vancomycin ordered. Blood cultures through dialysis catheter with hemodialysis and peripheral. Consult ID. -Acute uremic and hypoxic encephalopathy: Not improving -Acute hypoxic respiratory failure from fluid overload/CHF.: Not improving On ventilator support since August 28 -Right above-knee amputation by Dr. Yared Lugo on June 2024 Follow-up with Dr. Kaur -Right pleural effusion not felt to be significant. Dr. GIBSON from pulmonary: Following -Possible right basilar pneumonia IV cefepime -Acute COPD exacerbation in a previous smoker Ventolin. DuoNeb-4 times daily. - AICD -Diabetes mellitus type 2 chronically on insulin, uncontrolled with [id number] Levemir 18 units subcu Diabetic diet. Accu-Cheks and sliding scale -Iron deficiency anemia aranesp -Hyperlipidemia Lipitor -End-stage kidney disease on hemodialysis Right IJ dialysis catheter -Hyponatremia-mild Fluid restriction -Chronic low back pain. Patient's had pain on and off for about 10 years. Has had prior surgery. Does not remember who did the surgery. When necessary pain medication -Hypotension. Midodrine -Obstructive sleep apnea sometimes uses CPAP machine -Diabetic peripheral neuropathy -Anxiety, depression Trazodone, Cymbalta -DJD Tylenol when necessary -AICD Due for generator change on August 28. Cardiology aware. -Lower extremity chronic venous insufficiency, with left lower extremity wounds Dr. Kaur consulted -Full code -Guardianship: Pending hearing on September 06, 2023. In the probate court. Prognosis remains poor. Further sepsis workup. Consult ID. Past Medical History Past Medical History: Asthma, Coronary Artery Disease (CAD), Chest Pain / Angina, Heart Failure, COPD, Diabetes Mellitus, GERD/Reflux, Hyperlipidemia, Hypertension, Myocardial Infarction (PA), Pneumonia, Sleep Apnea/CPAP/BIPAP, Supraventricular Tachycardia (SVT) Additional Past Medical History / Comment(s): Ischemic cardiomyopathy, chronic CHF, SVT, IDDM type II, KAMINI with CPAP occasionally used, chronic cervical/back pain, DJD, diabetic foot wounds x 4 months. Dialysis Last Myocardial Infarction Date:: 12/11/17 History of Any Multi-Drug Resistant Organisms: MRSA Date of last positivie culture/infection: 06/15/23 MDRO Source:: Right Foot Past Surgical History: Adenoidectomy, AICD, Back Surgery, Cholecystectomy, EPS, Heart Catheterization, Pacemaker, Tonsillectomy Additional Past Surgical History / Comment(s): 12/10/17 cardiac cath, previous cardiac cath, 09/02/14 AICD/pacer, EGD/colonoscopy, low back surgery with fusion. Past Anesthesia/Blood Transfusion Reactions: Motion Sickness Additional Past Anesthesia/Blood Transfusion Reaction / Comment(s): Pt states he received blood with back surgery without reaction. Type of Cardiac Device: Permanent Pacemaker, AICD Device Placement Date:: 09-02-14 Past Psychological History: ADD/ADHD, Anxiety Smoking Status: Current every day smoker Past Alcohol Use History: Occasional Past Drug Use History: Marijuana
--- NOTE | 2023-08-31 16:07 | P.CNNES ---
History of Present Illness Consult date: 08/31/23 Requesting physician: Robert Steel Reason for Consult: altered mental status, not following commands. History of Present Illness: This is a 53-year-old gentleman who presented emergency department for shortness of breath. Neurology is consulted for altered mental status. History was obtained from the patient medical record and his nurse at. According to the nurse patient has history of chronic kidney disease on dialysis but is seems she is not compliant with the medication. It is reported that he misses dialysis because important meeting. The patient was having the shortness of breath, dyspnea on exertion and had the increased lower extremity edema. Per the nurse patient's yesterday was following commands but today even with holiday sedation for couple hours she was not following commands. Since the patient was intubated on 08/28/2023. He has numerous medical issues in which she has ischemic cardiomyopathy with ejection fraction 20%. He has acute on chronic systolic heart failure and as stated earlier U was a fluid overloaded from missed hemodialysis. Seems the patient has severe sepsis a and the patient is on cefepime and vancomycin and ID was consulted. Patient has diabetes mellitus type 2, coronary artery disease, hypertension, ischemic cardiomyopathy, has diabetic foot wound, [id number] amputation. She has AICD. Some of the Workup during his hospital visit consisted of: On initial presentation afebrile but since 08/29/23 has been febrile. Today as high as 103.1F During this visit the patient leukocytosis was trended up compared to initial presentation but since the last 2 days it's been trending down. Got as high as 41,000. It's predominantly neutrophilic Sodium is 133, creatinine is 2.57 which is trending down compared to initial presentation on the 08/21/2023. Creatinine is a 41 which is trending up today compared to last couple days. Calcium is 8.7, magnesium is 2.1 AST and ALT is within normal limits Urine analysis seems underlying urinary tract infection with urine white blood cell more than 182, urine white blood cell clumps is many bacteria was few. RSV,HETAL-Covid 2, influenza A and the B, HSV 1 and 2, CMV, adenovirus, parainfluenza, enterovirus are nondetected Urine culture is grame negat bacili and gram stain sputum is staph aureus moraxella catarra Review of Systems Limited but positive and negative as per HPI. Past Medical History Past Medical History: Asthma, Coronary Artery Disease (CAD), Chest Pain / Angina, Heart Failure, COPD, Diabetes Mellitus, GERD/Reflux, Hyperlipidemia, Hypertension, Myocardial Infarction ([place]), Pneumonia, Sleep Apnea/CPAP/BIPAP, Supraventricular Tachycardia (SVT) Additional Past Medical History / Comment(s): Ischemic cardiomyopathy, chronic CHF, SVT, IDDM type II, KAMINI with CPAP occasionally used, chronic cervical/back pain, DJD, diabetic foot wounds x 4 months. Dialysis Last Myocardial Infarction Date:: 12/11/17 History of Any Multi-Drug Resistant Organisms: MRSA Date of last positivie culture/infection: 06/15/23 MDRO Source:: Right Foot Past Surgical History: Adenoidectomy, AICD, Back Surgery, Cholecystectomy, EPS, Heart Catheterization, Pacemaker, Tonsillectomy Additional Past Surgical History / Comment(s): 12/10/17 cardiac cath, previous cardiac cath, 09/02/14 AICD/pacer, EGD/colonoscopy, low back surgery with fusion. Right AKA - Patient states it was a couple weeks ago but is unsure of date Past Anesthesia/Blood Transfusion Reactions: Motion Sickness Additional Past Anesthesia/Blood Transfusion Reaction / Comment(s): Pt states he received blood with back surgery without reaction. Type of Cardiac Device: Permanent Pacemaker, AICD Device Placement Date:: 09-02-14 Past Psychological History: ADD/ADHD, Anxiety Additional Psychological History / Comment(s): Pt lives with his old son. There are cats in the home. Pt is very independent. He states he would like a walker d/t his L foot wound. He drives. Pt states he has ADHD. Pt is disabled. He has a glucometer and nebulizer. The patient worked in the past building [employer] and [employer]. Smoking Status: Former smoker Past Alcohol Use History: Occasional Additional Past Alcohol Use History / Comment(s): patient states that he quit smoking 6 months ago Past Drug Use History: Marijuana Additional Drug Use History / Comment(s): Occasional marijuana use. - Past Family History Father Additional Family Medical History / Comment(s): Pt has not kept in close contact with his father for many yrs. Father was an alcoholic and pt believes he has from cirrhosis of the liver. Mother History Unknown: Yes Additional Family Medical History / Comment(s): Pt is not in contact with his mother or his father who he has heard had . Medications and Allergies Home Medications Medication Instructions Recorded Confirmed Type Albuterol Inhaler [Ventolin Hfa 2 puff INHALATION RT-QID PRN 07/06/22 08/22/23 History Inhaler] SILVER sulfADIAZINE CREAM 1 applic TOPICAL SUWEFR 06/04/23 08/22/23 History [Silvadene Cream] Acetaminophen Tab [Tylenol] 650 mg PO Q6HR PRN tab 07/02/23 08/22/23 Rx DULoxetine HCL [Cymbalta] 30 mg PO DAILY cap 07/02/23 08/22/23 Rx Folic Acid 1 mg PO DAILY tab 07/02/23 08/22/23 Rx Ipratropium-Albuterol Nebulize 3 ml INHALATION RT-QID each 07/02/23 08/22/23 Rx [Duoneb 0.5 mg-3 mg/3 ml Soln] Lactulose [Cephulac] 20 gm PO DAILY PRN ml 07/02/23 08/22/23 Rx Thiamine [Vitamin B-1] 100 mg PO DAILY #30 tablet 07/02/23 08/22/23 Rx fluPHENAZine [Prolixin] 3 mg PO HS tab 07/02/23 08/22/23 Rx Aspirin 81 mg PO DAILY 07/04/23 08/22/23 History Famotidine [Pepcid] 20 mg PO DAILY 07/04/23 08/22/23 History Insulin Glargine,Hum.rec.anlog 28 units SQ HS 07/04/23 08/22/23 History [Trudi Bailey] Metoprolol Tartrate [Lopressor] 25 mg PO BID 07/04/23 08/22/23 History Midodrine HCl [ProAmatine] 10 mg PO TID@0730,1100,1600 07/04/23 08/22/23 History Multivitamins, Thera [Multivitamin 1 tab PO DAILY 07/04/23 08/22/23 History (formulary)] Torsemide [Soaanz] 40 mg PO SUMOWEFR@0700 07/04/23 08/22/23 History Torsemide [Soaanz] 40 mg PO TUTHSA@1000 07/04/23 08/22/23 History Ascorbic Acid [Vitamin C] 1,000 mg PO DAILY tab 07/09/23 08/22/23 Rx INSULIN ASPART (NovoLOG) [NovoLOG See Protocol SQ ACHS 07/20/23 08/22/23 History (formulary)] ALPRAZolam [Xanax] 0.5 mg PO Q8H PRN 08/22/23 08/22/23 History Amiodarone [Cordarone] 200 mg PO DAILY 08/22/23 08/22/23 History HYDROcodone/APAP 5-325MG [[place] 1 tab PO Q8HR 08/22/23 08/22/23 History 5-325] traZODone HCL [Desyrel] 50 mg PO HS PRN 08/22/23 08/22/23 History Allergies Allergy/AdvReac Type Severity Reaction Status Date / Time azithromycin Allergy Anaphylaxis Verified 08/22/23 08:29 gemfibrozil [From Lopid] Allergy Rash/Hives Verified 08/22/23 08:29 Physical Examination - Vital Signs Vital Signs: Vital Signs Temp Pulse Resp BP Pulse Ox FiO2 08/31/23 15:15 109 H 28 H 91/77 99 08/31/23 15:00 109 H 28 H 98 08/31/23 14:45 109 H 28 H 99 08/31/23 14:30 111 H 30 H 99 08/31/23 14:15 111 H 28 H 95/66 97 08/31/23 14:00 112 H 28 H 100/65 98 08/31/23 13:45 111 H 28 H 97/65 99 08/31/23 13:30 112 H 30 H 98 08/31/23 13:15 102.7 F H 115 H 28 H 98 08/31/23 13:00 115 H 28 H 98 08/31/23 12:15 117 H 30 H 102/67 95 08/31/23 12:00 101.4 F H 117 H 29 H 96 50 08/31/23 11:45 118 H 29 H 104/69 97 08/31/23 11:30 122 H 28 H 104/69 96 08/31/23 11:17 120 H 08/31/23 11:15 123 H 35 H 95 08/31/23 11:08 124 H 08/31/23 11:03 50 08/31/23 11:00 125 H 31 H 95 08/31/23 10:45 124 H 26 H 96 08/31/23 10:30 124 H 24 97 08/31/23 10:15 124 H 33 H 97 08/31/23 10:00 123 H 32 H 97 08/31/23 09:45 122 H 33 H 96 08/31/23 09:30 121 H 30 H 97 08/31/23 09:15 120 H 32 H 97 08/31/23 09:00 102.7 F H 121 H 35 H 97 08/31/23 08:45 122 H 32 H 97 08/31/23 08:30 122 H 29 H 97 08/31/23 08:15 124 H 35 H 104/70 97 08/31/23 08:00 103.1 F H 125 H 33 H 97 50 08/31/23 07:59 120 H 08/31/23 07:55 50 08/31/23 07:49 118 H 08/31/23 07:45 124 H 32 H 96 08/31/23 07:30 125 H 30 H 96 08/31/23 07:15 126 H 30 H 97 08/31/23 07:00 126 H 28 H 107/72 96 08/31/23 06:45 125 H 30 H 107/72 96 08/31/23 06:30 126 H 33 H 107/72 96 08/31/23 06:15 103 F H 125 H 41 H 107/72 96 50 08/31/23 06:00 126 H 32 H 104/67 95 08/31/23 05:45 102.8 F H 125 H 33 H 104/67 97 50 08/31/23 05:30 124 H 37 H 104/67 97 08/31/23 05:15 122 H 19 104/67 97 08/31/23 05:00 120 H 23 103/65 97 50 08/31/23 04:45 117 H 29 H 103/65 97 08/31/23 04:30 117 H 37 H 103/65 97 08/31/23 04:15 116 H 38 H 103/65 97 08/31/23 04:00 117 H 29 H 99/69 97 50 08/31/23 03:45 116 H 38 H 99/69 97 08/31/23 03:30 117 H 37 H 99/69 97 08/31/23 03:18 50 08/31/23 03:17 116 H 08/31/23 03:15 98 F 116 H 29 H 99/69 96 50 08/31/23 03:00 117 H 29 H 100/66 96 08/31/23 02:45 117 H 23 100/66 96 08/31/23 02:30 117 H 37 H 100/66 96 08/31/23 02:15 117 H 29 H 100/66 97 50 08/31/23 02:00 117 H 22 100/67 96 08/31/23 01:45 118 H 27 H 100/67 97 08/31/23 01:30 101.8 F H 118 H 26 H 100/67 97 08/31/23 01:15 114 H 38 H 100/67 97 08/31/23 01:00 113 H 30 H 101/63 97 50 08/31/23 00:45 117 H 29 H 101/63 96 08/31/23 00:30 116 H 29 H 101/63 96 08/31/23 00:15 115 H 28 H 101/63 96 08/31/23 00:00 99.6 F 114 H 27 H 104/64 96 50 08/30/23 23:45 115 H 29 H 104/64 96 08/30/23 23:37 115 H 08/30/23 23:30 116 H 28 H 104/64 96 08/30/23 23:24 116 H 50 08/30/23 23:15 116 H 28 H 104/64 95 08/30/23 23:04 117 H 28 H 104/64 95 08/30/23 23:00 117 H 28 H 107/65 96 08/30/23 22:45 99.1 F 117 H 9 L 107/65 99 50 08/30/23 22:30 118 H 29 H 100/63 98 08/30/23 22:15 120 H 29 H 100/63 97 08/30/23 22:00 120 H 28 H 104/66 97 08/30/23 21:45 101.5 F H 121 H 31 H 104/66 97 50 08/30/23 21:30 122 H 31 H 104/66 96 08/30/23 21:15 122 H 30 H 104/66 97 08/30/23 21:00 123 H 32 H 107/66 96 08/30/23 20:45 103 F H 124 H 28 H 107/66 97 50 08/30/23 20:30 123 H 28 H /62 96 08/30/23 20:15 122 H 28 H 98 08/30/23 20:00 122 H 39 H 98 50 08/30/23 19:45 121 H 27 H /62 98 08/30/23 19:31 121 H 08/30/23 19:30 121 H 31 H / 97 50 08/30/23 19:19 50 08/30/23 19:18 117 H 08/30/23 19:15 120 H 32 H 97/62 99 08/30/23 19:00 120 H 30 H 100 08/30/23 18:45 120 H 28 H 100 08/30/23 18:30 120 H 28 H 99 08/30/23 18:15 113 H 29 H 99 08/30/23 18:00 113 H 28 H 100 08/30/23 17:45 113 H 28 H 100 08/30/23 17:30 112 H 29 H 100 08/30/23 17:15 112 H 28 H 100 08/30/23 17:00 113 H 29 H /62 100 08/30/23 16:45 112 H 28 H /62 100 08/30/23 16:30 111 H 28 H 100 08/30/23 16:15 105 H 28 H /62 100 08/30/23 16:00 99.5 F 109 H 29 H 100 50 08/30/23 15:45 107 H 28 H 100 Intake and Output 08/31/23 08/31/23 08/31/23 06:59 14:59 22:59 Intake Total 221.824 9085.888 3 Output Total 0 0 0 Balance 989.203 4029.888 3 Intake: IV 24 24 3 .9 3cc/hr A-line 24 24 3 Intake, IV Titration 383.172 893.888 Amount Cefepime 2 gm In Sodium 100 Chloride 0.9% 100 ml @ 25 mls/hr IVPB Q12HR [facility] Rx #:[id number] Norepinephrine 8 mg In 226.505 258 Sodium Chloride 0.9% 250 ml @ 0.03 MCG/KG/MIN 5. 207 mls/hr IV .Q24H [facility] Rx#:[id number] Vancomycin 1,500 mg In 500 Sodium Chloride 0.9% 500 ml 500 ml @ 167 mls/hr IVPB Q24H [facility] Rx#: [id number] propofoL 1,000 mg In 156.667 35.888 Empty Bag 1 bag @ 15 MCG/ KG/MIN 8.91 mls/hr IV . [id number] [facility] Rx#:[id number] Tube Feeding 304 116 Other 30 Output: Urine 0 0 0 Other: # Voids 0 Weight 90.8 kg ABP, PAP, CO, CI - Last 8 Hours Arterial Blood Pressure 87/48 Arterial Blood Pressure 90/49 Arterial Blood Pressure 90/49 Arterial Blood Pressure 92/49 Arterial Blood Pressure 99/48 Arterial Blood Pressure 102/50 Arterial Blood Pressure 101/48 Arterial Blood Pressure 104/51 Arterial Blood Pressure 105/50 Arterial Blood Pressure 104/51 Arterial Blood Pressure 102/50 Arterial Blood Pressure 102/52 Arterial Blood Pressure 101/52 Arterial Blood Pressure 107/58 Arterial Blood Pressure 107/59 Arterial Blood Pressure 122/56 Arterial Blood Pressure 113/59 Arterial Blood Pressure 111/59 Arterial Blood Pressure 114/60 Arterial Blood Pressure 118/58 Arterial Blood Pressure 115/58 Arterial Blood Pressure 106/54 Arterial Blood Pressure 106/53 Arterial Blood Pressure 107/53 Arterial Blood Pressure 106/52 Arterial Blood Pressure 106/53 Arterial Blood Pressure 107/54 Arterial Blood Pressure 100/54 Arterial Blood Pressure 106/54 GENERAL: The patient is lying in bed and does not appear in acute distress. LUNG: Intubated on ventilator. NEUROLOGICAL: Very Limited. Patient is on IV Propofol 15mcg/kg/min. Is comatose. GCS 3 (E1, VT1, M1). I had to manually open his eyes. Primary gaze is midline. The pupils are round the right is about 3 mm while the left is about 4 mm and is reactive to light equally. No facial weakness. Is breathing over the vent. Mild gag/cough to suctioning. Motor:Could not assess individual muscle. Has decrease tone. Not withdrawaling to painful stimuli. No sponatenous movement. Has above right knee amputation. Sensation:Unable to assess light touch. Reflexes: 2+ in uppers While lowers are 1+. Plantar: Mute on the left. Has above knee amputation. Results - Laboratory Findings CBC and BMP: 08/31/23 04:20 08/31/23 04:20 Abnormal Lab Findings: Abnormal Labs 08/21/23 08/21/23 08/21/23 23:30 23:30 23:30 WBC 22.8 H RBC 3.90 L Hgb 11.0 L Hct 35.9 L MCHC 30.7 L RDW 17.0 H Plt Count Neutrophils # 19.6 H Lymphocytes # 0.7 L Monocytes # 2.0 H PT 14.6 H INR 1.4 H ABG pH ABG pCO2 ABG pO2 ABG HCO3 ABG Total CO2 ABG O2 Saturation Sodium 132 L Potassium 5.4 H Chloride 94 L Carbon Dioxide BUN 83 H Creatinine 6.21 H Glucose POC Glucose (mg/dL) Phosphorus Alkaline Phosphatase 187 H Troponin I Albumin Procalcitonin Urine Protein Urine Blood Ur Leukocyte Esterase Urine RBC Urine WBC Urine WBC Clumps Urine Bacteria Urine Mucus Fluid Appearance 08/21/23 08/22/23 08/22/23 23:30 14:16 21:15 WBC RBC Hgb Hct MCHC RDW Plt Count Neutrophils # Lymphocytes # Monocytes # PT INR ABG pH ABG pCO2 ABG pO2 ABG HCO3 ABG Total CO2 ABG O2 Saturation Sodium Potassium Chloride Carbon Dioxide BUN Creatinine Glucose POC Glucose (mg/dL) 188 H 144 H Phosphorus Alkaline Phosphatase Troponin I 0.035 H* Albumin Procalcitonin Urine Protein Urine Blood Ur Leukocyte Esterase Urine RBC Urine WBC Urine WBC Clumps Urine Bacteria Urine Mucus Fluid Appearance 08/23/23 08/23/23 08/23/23 04:54 06:16 08:04 WBC 13.9 H RBC 3.77 L Hgb 10.9 L Hct 35.4 L MCHC 30.9 L RDW 16.9 H Plt Count Neutrophils # 11.6 H Lymphocytes # 0.8 L Monocytes # 1.1 H PT INR ABG pH ABG pCO2 ABG pO2 ABG HCO3 ABG Total CO2 ABG O2 Saturation Sodium Potassium Chloride Carbon Dioxide BUN Creatinine Glucose POC Glucose (mg/dL) 127 H 147 H Phosphorus Alkaline Phosphatase Troponin I Albumin Procalcitonin Urine Protein Urine Blood Ur Leukocyte Esterase Urine RBC Urine WBC Urine WBC Clumps Urine Bacteria Urine Mucus Fluid Appearance 08/23/23 08/23/23 08/23/23 08:04 08:04 16:27 WBC RBC Hgb Hct MCHC RDW Plt Count Neutrophils # Lymphocytes # Monocytes # PT INR ABG pH ABG pCO2 ABG pO2 ABG HCO3 ABG Total CO2 ABG O2 Saturation Sodium 132 L Potassium 5.2 H Chloride 94 L Carbon Dioxide BUN 62 H Creatinine 5.09 H Glucose 118 H POC Glucose (mg/dL) 136 H Phosphorus 8.7 H Alkaline Phosphatase Troponin I Albumin Procalcitonin Urine Protein Urine Blood Ur Leukocyte Esterase Urine RBC Urine WBC Urine WBC Clumps Urine Bacteria Urine Mucus Fluid Appearance 08/23/23 08/24/23 08/24/23 20:09 10:00 11:31 WBC RBC Hgb Hct MCHC RDW Plt Count Neutrophils # Lymphocytes # Monocytes # PT INR ABG pH ABG pCO2 ABG pO2 ABG HCO3 ABG Total CO2 ABG O2 Saturation Sodium Potassium Chloride Carbon Dioxide BUN Creatinine Glucose POC Glucose (mg/dL) 119 H 126 H Phosphorus Alkaline Phosphatase Troponin I Albumin Procalcitonin Urine Protein Urine Blood Ur Leukocyte Esterase Urine RBC Urine WBC Urine WBC Clumps Urine Bacteria Urine Mucus Fluid Appearance Bloody A 08/24/23 08/25/23 08/25/23 20:20 09:01 09:01 WBC 11.3 H RBC 3.85 L Hgb 11.0 L Hct 36.7 L MCHC 29.9 L RDW 16.7 H Plt Count 147 L Neutrophils # 8.5 H Lymphocytes # 0.8 L Monocytes # 1.4 H PT INR ABG pH ABG pCO2 ABG pO2 ABG HCO3 ABG Total CO2 ABG O2 Saturation Sodium 135 L Potassium Chloride Carbon Dioxide BUN 40 H Creatinine 3.46 H Glucose 72 L POC Glucose (mg/dL) 147 H Phosphorus Alkaline Phosphatase Troponin I Albumin Procalcitonin Urine Protein Urine Blood Ur Leukocyte Esterase Urine RBC Urine WBC Urine WBC Clumps Urine Bacteria Urine Mucus Fluid Appearance 08/25/23 08/25/23 08/26/23 11:56 12:32 05:56 WBC RBC Hgb Hct MCHC RDW Plt Count Neutrophils # Lymphocytes # Monocytes # PT INR ABG pH ABG pCO2 ABG pO2 ABG HCO3 ABG Total CO2 ABG O2 Saturation Sodium Potassium 6.0 H Chloride Carbon Dioxide 18 L BUN 33 H Creatinine 3.38 H Glucose 62 L POC Glucose (mg/dL) 67 L 66 L Phosphorus Alkaline Phosphatase 284 H Troponin I Albumin 3.1 L Procalcitonin Urine Protein Urine Blood Ur Leukocyte Esterase Urine RBC Urine WBC Urine WBC Clumps Urine Bacteria Urine Mucus Fluid Appearance 08/26/23 08/26/23 08/26/23 06:04 06:21 06:37 WBC RBC Hgb Hct MCHC RDW Plt Count Neutrophils # Lymphocytes # Monocytes # PT INR ABG pH ABG pCO2 ABG pO2 ABG HCO3 ABG Total CO2 ABG O2 Saturation Sodium Potassium Chloride Carbon Dioxide BUN Creatinine Glucose POC Glucose (mg/dL) 69 L 62 L 69 L Phosphorus Alkaline Phosphatase Troponin I Albumin Procalcitonin Urine Protein Urine Blood Ur Leukocyte Esterase Urine RBC Urine WBC Urine WBC Clumps Urine Bacteria Urine Mucus Fluid Appearance 08/26/23 08/26/23 08/26/23 12:06 16:10 20:19 WBC RBC Hgb Hct MCHC RDW Plt Count Neutrophils # Lymphocytes # Monocytes # PT INR ABG pH ABG pCO2 ABG pO2 ABG HCO3 ABG Total CO2 ABG O2 Saturation Sodium Potassium Chloride Carbon Dioxide BUN Creatinine Glucose POC Glucose (mg/dL) 119 H 117 H 123 H Phosphorus Alkaline Phosphatase Troponin I Albumin Procalcitonin Urine Protein Urine Blood Ur Leukocyte Esterase Urine RBC Urine WBC Urine WBC Clumps Urine Bacteria Urine Mucus Fluid Appearance 08/27/23 08/27/23 08/27/23 06:00 07:24 16:54 WBC RBC Hgb Hct MCHC RDW Plt Count Neutrophils # Lymphocytes # Monocytes # PT INR ABG pH ABG pCO2 ABG pO2 ABG HCO3 ABG Total CO2 ABG O2 Saturation Sodium 132 L Potassium Chloride 96 L Carbon Dioxide BUN 28 H Creatinine 2.92 H Glucose 129 H POC Glucose (mg/dL) 137 H 148 H Phosphorus Alkaline Phosphatase Troponin I Albumin Procalcitonin Urine Protein Urine Blood Ur Leukocyte Esterase Urine RBC Urine WBC Urine WBC Clumps Urine Bacteria Urine Mucus Fluid Appearance 08/27/23 08/28/23 08/28/23 20:37 05:59 11:15 WBC RBC Hgb Hct MCHC RDW Plt Count Neutrophils # Lymphocytes # Monocytes # PT INR ABG pH ABG pCO2 ABG pO2 ABG HCO3 ABG Total CO2 ABG O2 Saturation Sodium Potassium Chloride Carbon Dioxide BUN Creatinine Glucose POC Glucose (mg/dL) 197 H 152 H 167 H Phosphorus Alkaline Phosphatase Troponin I Albumin Procalcitonin Urine Protein Urine Blood Ur Leukocyte Esterase Urine RBC Urine WBC Urine WBC Clumps Urine Bacteria Urine Mucus Fluid Appearance 08/28/23 08/28/23 08/28/23 14:46 14:54 15:15 WBC RBC Hgb Hct MCHC RDW Plt Count Neutrophils # Lymphocytes # Monocytes # PT INR ABG pH 7.24 L ABG pCO2 63 H ABG pO2 80 L ABG HCO3 27 H ABG Total CO2 29 H ABG O2 Saturation 93.3 L Sodium Potassium Chloride Carbon Dioxide BUN Creatinine Glucose POC Glucose (mg/dL) 169 H 158 H Phosphorus Alkaline Phosphatase Troponin I Albumin Procalcitonin Urine Protein Urine Blood Ur Leukocyte Esterase Urine RBC Urine WBC Urine WBC Clumps Urine Bacteria Urine Mucus Fluid Appearance 08/28/23 08/28/23 08/28/23 15:19 16:00 16:00 WBC 24.8 H RBC 3.55 L Hgb 10.0 L Hct 33.6 L MCHC 29.9 L RDW 16.6 H Plt Count Neutrophils # 23.6 H Lymphocytes # 0.3 L Monocytes # PT INR ABG pH ABG pCO2 ABG pO2 ABG HCO3 ABG Total CO2 ABG O2 Saturation Sodium 134 L Potassium Chloride 96 L Carbon Dioxide BUN 24 H Creatinine 2.44 H Glucose 167 H POC Glucose (mg/dL) Phosphorus Alkaline Phosphatase Troponin I Albumin Procalcitonin Urine Protein 3+ H Urine Blood Large H Ur Leukocyte Esterase Large H Urine RBC 156 H Urine WBC >182 H Urine WBC Clumps Many H Urine Bacteria Few H Urine Mucus Occasional H Fluid Appearance 08/28/23 08/28/23 08/28/23 16:31 17:23 18:40 WBC RBC Hgb Hct MCHC RDW Plt Count Neutrophils # Lymphocytes # Monocytes # PT INR ABG pH 7.28 L ABG pCO2 57 H ABG pO2 290 H ABG HCO3 27 H ABG Total CO2 29 H ABG O2 Saturation 98.7 H Sodium Potassium Chloride Carbon Dioxide BUN Creatinine Glucose POC Glucose (mg/dL) 164 H Phosphorus Alkaline Phosphatase Troponin I Albumin Procalcitonin 2.00 H Urine Protein Urine Blood Ur Leukocyte Esterase Urine RBC Urine WBC Urine WBC Clumps Urine Bacteria Urine Mucus Fluid Appearance 08/28/23 08/29/23 08/29/23 22:45 04:20 04:20 WBC 41.2 H RBC 3.54 L Hgb 9.7 L Hct 33.1 L MCHC 29.2 L RDW 16.5 H Plt Count Neutrophils # 38.7 H Lymphocytes # 0.6 L Monocytes # 1.4 H PT INR ABG pH ABG pCO2 ABG pO2 ABG HCO3 ABG Total CO2 ABG O2 Saturation Sodium 136 L Potassium Chloride Carbon Dioxide BUN 34 H Creatinine 3.09 H Glucose 190 H POC Glucose (mg/dL) 196 H Phosphorus Alkaline Phosphatase Troponin I Albumin Procalcitonin Urine Protein Urine Blood Ur Leukocyte Esterase Urine RBC Urine WBC Urine WBC Clumps Urine Bacteria Urine Mucus Fluid Appearance 08/29/23 08/29/23 08/29/23 05:35 06:06 11:31 WBC RBC Hgb Hct MCHC RDW Plt Count Neutrophils # Lymphocytes # Monocytes # PT INR ABG pH ABG pCO2 ABG pO2 74 L ABG HCO3 26 H ABG Total CO2 27 H ABG O2 Saturation Sodium Potassium Chloride Carbon Dioxide BUN Creatinine Glucose POC Glucose (mg/dL) 230 H 175 H Phosphorus Alkaline Phosphatase Troponin I Albumin Procalcitonin Urine Protein Urine Blood Ur Leukocyte Esterase Urine RBC Urine WBC Urine WBC Clumps Urine Bacteria Urine Mucus Fluid Appearance 08/29/23 08/29/23 08/30/23 17:40 23:25 03:20 WBC 38.7 H RBC 3.65 L Hgb 10.1 L Hct 33.8 L MCHC 29.9 L RDW 16.6 H Plt Count Neutrophils # 36.0 H Lymphocytes # 0.6 L Monocytes # 1.4 H PT INR ABG pH ABG pCO2 ABG pO2 ABG HCO3 ABG Total CO2 ABG O2 Saturation Sodium Potassium Chloride Carbon Dioxide BUN Creatinine Glucose POC Glucose (mg/dL) 138 H 215 H Phosphorus Alkaline Phosphatase Troponin I Albumin Procalcitonin Urine Protein Urine Blood Ur Leukocyte Esterase Urine RBC Urine WBC Urine WBC Clumps Urine Bacteria Urine Mucus Fluid Appearance 08/30/23 08/30/23 08/30/23 03:20 05:57 06:19 WBC RBC Hgb Hct MCHC RDW Plt Count Neutrophils # Lymphocytes # Monocytes # PT INR ABG pH ABG pCO2 48 H ABG pO2 ABG HCO3 27 H ABG Total CO2 29 H ABG O2 Saturation Sodium 136 L Potassium Chloride Carbon Dioxide BUN 34 H Creatinine 2.75 H Glucose 236 H POC Glucose (mg/dL) 236 H Phosphorus Alkaline Phosphatase Troponin I Albumin Procalcitonin Urine Protein Urine Blood Ur Leukocyte Esterase Urine RBC Urine WBC Urine WBC Clumps Urine Bacteria Urine Mucus Fluid Appearance 08/30/23 08/30/23 08/30/23 11:42 12:07 16:30 WBC RBC Hgb Hct MCHC RDW Plt Count Neutrophils # Lymphocytes # Monocytes # PT INR ABG pH ABG pCO2 ABG pO2 ABG HCO3 ABG Total CO2 ABG O2 Saturation Sodium 133 L Potassium Chloride Carbon Dioxide BUN 29 H Creatinine 2.04 H Glucose 273 H POC Glucose (mg/dL) 216 H 213 H Phosphorus Alkaline Phosphatase Troponin I Albumin Procalcitonin Urine Protein Urine Blood Ur Leukocyte Esterase Urine RBC Urine WBC Urine WBC Clumps Urine Bacteria Urine Mucus Fluid Appearance 08/30/23 08/30/23 08/31/23 16:45 23:24 04:20 WBC 37.5 H RBC 3.73 L Hgb 10.2 L Hct 34.5 L MCHC 29.6 L RDW 16.8 H Plt Count Neutrophils # 34.5 H Lymphocytes # Monocytes # 1.3 H PT INR ABG pH ABG pCO2 ABG pO2 ABG HCO3 ABG Total CO2 ABG O2 Saturation Sodium Potassium Chloride Carbon Dioxide BUN Creatinine Glucose POC Glucose (mg/dL) 262 H 237 H Phosphorus Alkaline Phosphatase Troponin I Albumin Procalcitonin Urine Protein Urine Blood Ur Leukocyte Esterase Urine RBC Urine WBC Urine WBC Clumps Urine Bacteria Urine Mucus Fluid Appearance 08/31/23 08/31/23 08/31/23 04:20 05:40 05:43 WBC RBC Hgb Hct MCHC RDW Plt Count Neutrophils # Lymphocytes # Monocytes # PT INR ABG pH ABG pCO2 ABG pO2 ABG HCO3 ABG Total CO2 ABG O2 Saturation Sodium 133 L Potassium Chloride Carbon Dioxide BUN 41 H Creatinine 2.57 H Glucose 294 H POC Glucose (mg/dL) 328 H 312 H Phosphorus Alkaline Phosphatase Troponin I Albumin Procalcitonin Urine Protein Urine Blood Ur Leukocyte Esterase Urine RBC Urine WBC Urine WBC Clumps Urine Bacteria Urine Mucus Fluid Appearance 08/31/23 08/31/23 06:11 12:04 WBC RBC Hgb Hct [facility] RDW Plt Count Neutrophils # Lymphocytes # Monocytes # PT INR ABG pH ABG pCO2 46 H ABG pO2 72 L ABG HCO3 26 H ABG Total CO2 28 H ABG O2 Saturation Sodium Potassium Chloride Carbon Dioxide BUN Creatinine Glucose POC Glucose (mg/dL) 284 H Phosphorus Alkaline Phosphatase Troponin I Albumin Procalcitonin Urine Protein Urine Blood Ur Leukocyte Esterase Urine RBC Urine WBC Urine WBC Clumps Urine Bacteria Urine Mucus Fluid Appearance Assessment and Plan Assessment: This is a 53-year-old gentleman with history of chronic kidney insufficiency who presents to the emergency department because shortness of breath, dyspnea on exertion. Seems the patient has missed his dialysis prior to that. Patient has risk medical issues and the is seems the patient the has sepsis. The nurse the patient was following commands yesterday but today even with the house and the patient he was not following commands. Encephalopathy due to multifactorial but predominantly septic from urosepsis (gram neg bacilli) as well as pneumoia (staph aureus moraxella catarra). He also has component of metabolic encephalopathy, ureimic as well as sedation (IV Propofol). Also patient has hypothyroidism lab suggestive on 07/30/23 which can cause encephalopathy and is not on medication. Sepsis shock Acute on chronic kidney insufficiency on dialysis and missed his dialysis. Care chronic systolic congestive heart failure secondary due to fluid overload f rom this diagnosis Acute hypoxic hypercapnic respiratory failure status post intubation Hypothyroidism (TSH 5.77 and free T4 0.72 on 07/30/23) and currently not on medication. Ischemic cardiomyopathy with ejection fraction 20% and patient has defibrillator Type 2 diabetes on insulin Moderate to severe mitral regurgitation with moderate tricuspid regurgitation and severe pulmonary hypertension Recent above right the knee amputation secondary due to infected right heel diabetic ulcer Lower extremity venous insufficiency Diabetic perform neuropathy History Hypertension Obstructive sleep apnea Tobacco use Marijuana use Plan: I ordered STAT EEG to rule out seizure or discharge. CT head is ordered and is pending I ordered ammonia level, Vitamin B12, folate level. Hypothyroidism (TSH 5.77 and free T4 0.72 on 07/30/23) and currently not on medication. Recommend starting him on synthroid since labs are suggestive but will defer management to primary team. Patient has sepsis and I.D. is consulted. If patient confusion does not improved then recommend a lumbar puncture to rule out any meningoencephalitis. Recommend holiday sedation for better neurological examination. Avoid opiates/sedation or any medication that can worsening his mentation for better neurological assessment. Nephrology, Vascular surgeon are on board Will defer the rest of medical management to primary and other specialist. Overall condition is very guarded. The plan is discussed with his nurse. Thank you for the consultation. Time with Patient: Greater than 30
[2023-08-31 17:23] LABS: Glucose,Whole Blood 178 mg/dL (70-110)
[2023-09-01 02:27] LABS: Glucose,Whole Blood 257 mg/dL (70-110)
[2023-09-01 04:44] LABS: Anisocytosis Slight; Basophils # (A) 0.1 k/uL (0-0.2); Basophils % (A) 0 %; Eosinophils % (A) 0 %; HCT 34.9 % (39.0-53.0); HGB 10.4 gm/dL (13.0-17.5); Hypochromasia Marked; Lymphocytes # (A) 1.2 k/uL (1.0-4.8); Lymphocytes % (A) 4 %; MCH 27.6 pg (25.0-35.0); MCHC 29.8 g/dL (31.0-37.0); MCV 92.7 fL (80.0-100.0); Mean Platelet Volume 8.9; Monocytes # (A) 1.2 k/uL (0-1.0); Monocytes % (A) 4 %; Neutrophils % (A) 90 %; Platelet Count 197 k/uL (150-450); RBC 3.76 m/uL (4.30-5.90); RDW 16.8 % (11.5-15.5); WBC 31.9 k/uL (3.8-10.6)
[2023-09-01 05:00] LABS: Neutrophils # (A) 28.6 k/uL (1.3-7.7)
[2023-09-01 05:06] LABS: African American GFR (CKD) 31 (>60 ml/min/1.73 sqM); Anion Gap 9 mmol/L; Blood Urea Nitrogen 46 mg/dL (9-20); Calcium 8.5 mg/dL (8.4-10.2); Carbon Dioxide 23 mmol/L (22-30); Chloride 101 mmol/L (98-107); Glucose 274 mg/dL (74-99); Non-African American GFR(CKD) 27 (>60 ml/min/1.73 sqM); Sodium 133 mmol/L (137-145)
[2023-09-01 05:16] LABS: Potassium 4.8 mmol/L (3.5-5.1)
[2023-09-01 06:12] LABS: Glucose,Whole Blood 235 mg/dL (70-110)
[2023-09-01 06:39] LABS: ABG HCO3 24 mmol/L (21-25); ABG Oxygen Saturation 94.1 % (94-97); ABG PCO2 43 mmHg (35-45); ABG PH 7.36 (7.35-7.45); ABG PO2 70 mmHg (83-108); ABG TCO2 26 mmol/L (19-24); Allen Test Performed? Yes
--- NOTE | 2023-09-01 07:47 | XR ---
EXAMINATION TYPE: XR chest 1V portable DATE OF EXAM: 09/01/2023 COMPARISON: August 31, 2023 HISTORY: SOB, Follow Up FINDINGS: Indwelling tubes and catheters are unchanged. No change in focal infiltrate right midlung zone and scattered infiltrates throughout both lung field s. Associated pulmonary venous congestion. Stable appearance of the cardio-mediastinal structures at this time. Pleural effusion unchanged. IMPRESSION: 1. Stable portable chest. Clinical correlation and follow up until resolution is recommended.
--- NOTE | 2023-09-01 08:56 | P.PN ---
Subjective Progress Note Date: 09/01/23 Patient seen in follow-up for end-stage renal disease. Tolerated HD yesterday, per nursing planning on LP and EEG today. Vital signs are stable. On vasopressor support. General: Resting in bed. HEENT: Intubated. LUNGS: +rhonchi HEART: Rate and Rhythm are regular. ABDOMEN: Obese. EXTREMITITES: Right AKA noted. 1+ edema. Objective - Vital Signs Vital signs: Vital Signs Temp 100.9 F H 09/01/23 06:00 Pulse 124 H 09/01/23 07:45 Resp 35 H 09/01/23 07:00 BP 98/74 09/01/23 07:00 Pulse Ox 97 09/01/23 07:00 FiO2 40 09/01/23 07:34 Intake & Output 08/31/23 09/01/23 09/01/23 18:59 06:59 18:59 Intake Total 7697.229 0507.130 96.290 Output Total 0 0 0 Balance 5864.480 5526.130 96.290 Weight 91.5 kg Intake: IV 36 36 3 .9 3cc/hr A-line 36 36 3 Intake, IV Titration 1044.143 512.130 54.290 Amount Cefepime 2 gm In Sodium 100 100 Chloride 0.9% 100 ml @ 25 mls/hr IVPB Q12HR LAN Rx #:[id number] Norepinephrine 8 mg In 359.25 268.53 41.222 Sodium Chloride 0.9% 250 ml @ 0.03 MCG/KG/MIN 5. 207 mls/hr IV .Q24H LAN Rx#:[id number] Vancomycin 1,500 mg In 500 Sodium Chloride 0.9% 500 ml 500 ml @ 167 mls/hr IVPB Q24H LAN Rx#: [id number] propofoL 1,000 mg In 84.893 143.600 13.068 Empty Bag 1 bag @ 15 MCG/ KG/MIN 8.91 mls/hr IV . [id number] LAN Rx#:[id number] Tube Feeding 155 429 39 Other 110 Output: Urine 0 0 0 ABP, PAP, CO, CI - Last Documented Arterial Blood Pressure 95/55 - Labs CBC & Chem 7: 09/01/23 04:30 09/01/23 04:30 Labs: Abnormal Lab Results - Last 24 Hours (Table) 08/31/23 08/31/23 08/31/23 Range/Units 12:04 16:21 16:21 WBC (3.8-10.6) k/uL RBC (4.30-5.90) m/uL Hgb (13.0-17.5) gm/dL Hct (39.0-53.0) % MCHC (31.0-37.0) g/dL RDW (11.5-15.5) % Neutrophils # (1.3-7.7) k/uL Monocytes # (0-1.0) k/uL ABG pO2 (83-108) mmHg ABG Total CO2 (19-24) mmol/L Sodium (137-145) mmol/L BUN (9-20) mg/dL Creatinine (0.66-1.25) mg/dL Glucose (74-99) mg/dL POC Glucose (mg/dL) 284 H (70-110) mg/dL Ammonia 32 H (<30) umol/L Vitamin B12 1434.0 H (200.0-944.0) pg/mL 08/31/23 09/01/23 09/01/23 Range/Units 17:21 02:24 04:30 WBC (3.8-10.6) k/uL RBC (4.30-5.90) m/uL Hgb (13.0-17.5) gm/dL Hct (39.0-53.0) % MCHC (31.0-37.0) g/dL RDW (11.5-15.5) % Neutrophils # (1.3-7.7) k/uL Monocytes # (0-1.0) k/uL ABG pO2 (83-108) mmHg ABG Total CO2 (19-24) mmol/L Sodium 133 L (137-145) mmol/L BUN 46 H (9-20) mg/dL Creatinine 2.57 H (0.66-1.25) mg/dL Glucose 274 H (74-99) mg/dL POC Glucose (mg/dL) 178 H 257 H (70-110) mg/dL Ammonia (<30) umol/L Vitamin B12 (200.0-944.0) pg/mL 09/01/23 09/01/23 09/01/23 Range/Units 04:30 06:10 06:35 WBC 31.9 H (3.8-10.6) k/uL RBC 3.76 L (4.30-5.90) m/uL Hgb 10.4 L (13.0-17.5) gm/dL Hct 34.9 L (39.0-53.0) % MCHC 29.8 L (31.0-37.0) g/dL RDW 16.8 H (11.5-15.5) % Neutrophils # 28.6 H (1.3-7.7) k/uL Monocytes # 1.2 H (0-1.0) k/uL ABG pO2 70 L (83-108) mmHg ABG Total CO2 26 H (19-24) mmol/L Sodium (137-145) mmol/L BUN (9-20) mg/dL Creatinine (0.66-1.25) mg/dL Glucose (74-99) mg/dL POC Glucose (mg/dL) 235 H (70-110) mg/dL Ammonia (<30) umol/L Vitamin B12 (200.0-944.0) pg/mL Microbiology - Last 24 Hours (Table) 08/28/23 22:30 Blood Culture - Preliminary Blood 08/28/23 21:50 Blood Culture - Preliminary Blood 08/29/23 01:17 Gram Stain - Final Sputum Sputum Culture - Final Staphylococcus aureus Moraxella(branhamella) catarra Assessment and Plan Plan: Assessment: 1. End-stage renal disease maintained on hemodialysis on Saturday schedule, currently receiving daily treatment. 2. Volume overload. Improving with ultrafiltration. 3. Chronic kidney disease mineral bone disease maintained on PhosLo. Phosphorus level 3.8 dated August 26, 2023. 4. Diabetes mellitus. 5. Acute on chronic systolic CHF with ejection fraction of 15 to 20% with moderate mitral and tricuspid regurgitation and moderate pulmonary hypertension. 6. Acute hypoxic respiratory failure. Intubated. Plan: Continue with daily dialysis, next treatment Saturday. Maintain midodrine. Wean Levophed. Prognosis guarded. Hospice should be considered. Guardianship being obtained.
--- NOTE | 2023-09-01 09:04 | P.PN ---
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 Patient follows in the office with Dr. Abbasi. We have been asked to see the patient in consultation for congestive heart failure. Patient examined at the bedside in the emergency room. Patient was recently hospitalized in June 2023 and underwent right BKA. He was discharged to [facility] in [place]. Patient states he missed his hemodialysis session yesterday because he had an appointment that he could not miss so he decided to skip hemodialysis. The patient states he began to feel short of breath yesterday evening and was brought to the hospital for further evaluation. The patient und erwent hemodialysis this morning. He states his breathing has improved although he continues to be short of breath. He currently denies any chest pain or pressure. DIAGNOSTICS: - EKG reveals sinus mechanism with no signs of acute ischemia. Low voltage QRS. - Chest xray large right pleural effusion - Ultrasound of the chest reveals right chest wall soft tissue along the pleura with large pleural effusion. Small fluid pocket on the left. - Laboratory data: WBC 22.8. Hemoglobin 11.0. Platelet count 189. Sodium 132. Potassium 5.4. BUN 83. Creatinine 6.21. Troponin 0.035. proBNP 72,100. - Current home cardiac medications include amiodarone 200 mg daily, aspirin 81 mg daily, torsemide 40 mg daily, metoprolol tartrate 25 mg twice a day, midodrine 10 mg 3 times a day - Most recent echocardiogram obtained in June 2022 revealed ejection fraction less than 20%, severe pulmonary hypertension, moderate to severe MR, moderate TR - Cardiac catheterization history: February 2018 revealing minimal CAD August 23, 2023 Patient examined this morning at the bedside. Patient currently denies chest pain or pressure. He reports improvement in his shortness of breath. Patient underwent hemodialysis yesterday with removal of 3 L. He also underwent hemodialysis today with removal of 3 L. Telemetry reveals sinus mechanism with heart rate in the 70s. Blood pressure remains on the lower side with a systolic blood pressure in the 90s which is patient's baseline. August 24, 2023 Patient examined this morning at the bedside. Patient is somewhat lethargic at the time of examination. He denies chest pain or pressure. He reports shortness of breath. He is scheduled to undergo hemodialysis again today. Vital signs are stable. Echocardiogram completed revealing ejection fraction 15 to 20%, moderate mitral regurgitation, moderate tricuspid regurgitation, and moderate pulmonary hypertension August 25, 2023 Patient examined this morning at the bedside. Patient denies chest pain or pressure. He underwent hemodialysis yesterday. However, he remains dyspneic at the time of examination and is complaining of shortness of breath. He continues to have significant edema of his left leg, right stump, and abdomen. Blood pressure stable. Most recent blood pressure 98/64. 08/26 Patient is seen today in follow-up. He continues to have significant lower extremity abdominal edema. Patient was on BiPAP during the night currently on 5 L nasal cannula with pulse ox 95%, heart rate is running in the 80s, blood pressure 103/68. Repeat blood work reveals sodium 138, potassium 6, BUN 33 creatinine 3.38. ALT 284. Patient is having 4 L of fluid each dialysis treatment. His weight is documented to be improved from 111-95 however he continues to have significant edema. 08/27 Patient is currently on BiPAP and has a sitter at the bedside. He had dialysis with removal of 3 L of fluid. He seems to be a little more comfortable today and his respiratory status. Blood pressure is 92/54, heart rate in the 80s and 90s. Repeat blood work reveals sodium 132, potassium 4.3, BUN 28 creatinine 2.92. Chest x-ray moderate to large right pleural effusion with adjacent atelectasis and or consolidation. Noted that nephrology has recommended hospice. 08/28 Patient is currently undergoing hemodialysis and goal is for removal of 1 and half liters but his blood pressure is not tolerating this. He is also on BiPAP and has a sitter at the bedside. Heart rate is 110, respiratory rate 34, blood pressure prior to dialysis was 111/68 but dropping systolic down to the 80s. 08/29 Patient seen and examined. Patient was started on dobutamine drip yesterday however this has been discontinued. Patient had respiratory distress, altered mental status and intubated on 4. Currently remains intubated and on vasopressors with norepinephrine at 0.11. Ventilator with a PEEP of 5 and FiO2 50%. 08/30 Patient seen and examined. Patient remains intubated on FiO2 50% and a PEEP of 5. Receiving tube feeds at 30 mL per hour. Temporary guardian attempting to be set in place. On low-dose norepinephrine. 08/31 Patient seen and examined. Patient remains on ventilator with FiO2 50% PEEP of 5. He has had fevers overnight. Remains on norepinephrine at 0.13. Receiving tube feeds at 38 mL per hour. He did have dialysis yesterday with 3 L taken off. 09/01 Patient seen and examined. Patient remains on ventilator. Nonresponsive with sedation holiday. Remains on norepinephrine as well as tube feeds. He had dialysis yesterday with 2 L taken off. PHYSICAL EXAM: VITAL SIGNS: Reviewed. GENERAL: Lethargic but answering questions. HEENT: Head is normocephalic. Pupils are equal, round. Sclerae anicteric. LUNGS: Respirations labored. Lungs with decreased breath sounds and crackles HEART: Regular rate and rhythm. S1 and S2 heard. Systolic murmur noted. EXTREMITIES: Right AKA. Left lower extremity with 1+ edema ASSESSMENT: Shortness of breath Volume overload, secondary to missed hemodialysis session Acute on chronic heart failure with reduced EF, 20% Large right-sided pleural effusion End-stage renal disease on hemodialysis Nonischemic cardiomyopathy History of AICD implantation History of nonsustained ventricular tachycardia, maintained on amiodarone outpatient Recent right AKA secondary to nonhealing diabetic ulcer, June 2023 Hyperlipidemia COPD Nicotine dependence Diabetes Valvular heart disease including moderate to severe MR and moderate TR Severe pulmonary hypertension Chronic hypotension, maintained on midodrine outpatient, unable to tolerate BALBINA/ ARB History of medication noncompliance PLAN: Pulmonary following. Nephrology is following. Hemodialysis and diuretics per nephrology. Continue additional cardiac medications Patient with progressive decline, not able to tolerate hemodialysis well, appears end-stage heart failure. Patient continues to decline and currently on vasopressors. Evaluate goals of care, appears hospice appropriate. Sinus tachycardia likely related to fevers, possible sepsis, anxiety. Objective - Vital Signs Vital signs: Vital Signs Temp 100.9 F H 09/01/23 06:00 Pulse 124 H 09/01/23 07:45 Resp 35 H 09/01/23 07:00 BP 98/74 09/01/23 07:00 Pulse Ox 97 09/01/23 07:00 FiO2 40 09/01/23 07:34 Intake & Output 08/31/23 09/01/23 09/01/23 18:59 06:59 18:59 Intake Total 6525.213 7112.130 96.290 Output Total 0 0 0 Balance 7572.918 8507.130 96.290 Weight 91.5 kg Intake: IV 36 36 3 .9 3cc/hr A-line 36 36 3 Intake, IV Titration 1044.143 512.130 54.290 Amount Cefepime 2 gm In Sodium 100 100 Chloride 0.9% 100 ml @ 25 mls/hr IVPB Q12HR LAN Rx #:[id number] Norepinephrine 8 mg In 359.25 268.53 41.222 Sodium Chloride 0.9% 250 ml @ 0.03 MCG/KG/MIN 5. 207 mls/hr IV .Q24H LAN Rx#:[id number] Vancomycin 1,500 mg In 500 Sodium Chloride 0.9% 500 ml 500 ml @ 167 mls/hr IVPB Q24H LAN Rx#: [id number] propofoL 1,000 mg In 84.893 143.600 13.068 Empty Bag 1 bag @ 15 MCG/ KG/MIN 8.91 mls/hr IV . [id number] LAN Rx#:[id number] Tube Feeding 155 429 39 Other 110 Output: Urine 0 0 0 ABP, PAP, CO, CI - Last Documented Arterial Blood Pressure 95/55 - Labs CBC & Chem 7: 09/01/23 04:30 09/01/23 04:30 Labs: Abnormal Lab Results - Last 24 Hours (Table) 08/31/23 08/31/23 08/31/23 Range/Units 12:04 16:21 16:21 WBC (3.8-10.6) k/uL RBC (4.30-5.90) m/uL Hgb (13.0-17.5) gm/dL Hct (39.0-53.0) % MCHC (31.0-37.0) g/dL RDW (11.5-15.5) % Neutrophils # (1.3-7.7) k/uL Monocytes # (0-1.0) k/uL ABG pO2 (83-108) mmHg ABG Total CO2 (19-24) mmol/L Sodium (137-145) mmol/L BUN (9-20) mg/dL Creatinine (0.66-1.25) mg/dL Glucose (74-99) mg/dL POC Glucose (mg/dL) 284 H (70-110) mg/dL Ammonia 32 H (<30) umol/L Vitamin B12 1434.0 H (200.0-944.0) pg/mL 08/31/23 09/01/23 09/01/23 Range/Units 17:21 02:24 04:30 WBC (3.8-10.6) k/uL RBC (4.30-5.90) m/uL Hgb (13.0-17.5) gm/dL Hct (39.0-53.0) % MCHC (31.0-37.0) g/dL RDW (11.5-15.5) % Neutrophils # (1.3-7.7) k/uL Monocytes # (0-1.0) k/uL ABG pO2 (83-108) mmHg ABG Total CO2 (19-24) mmol/L Sodium 133 L (137-145) mmol/L BUN 46 H (9-20) mg/dL Creatinine 2.57 H (0.66-1.25) mg/dL Glucose 274 H (74-99) mg/dL POC Glucose (mg/dL) 178 H 257 H (70-110) mg/dL Ammonia (<30) umol/L Vitamin B12 (200.0-944.0) pg/mL 09/01/23 09/01/23 09/01/23 Range/Units 04:30 06:10 06:35 WBC 31.9 H (3.8-10.6) k/uL RBC 3.76 L (4.30-5.90) m/uL Hgb 10.4 L (13.0-17.5) gm/dL Hct 34.9 L (39.0-53.0) % MCHC 29.8 L (31.0-37.0) g/dL RDW 16.8 H (11.5-15.5) % Neutrophils # 28.6 H (1.3-7.7) k/uL Monocytes # 1.2 H (0-1.0) k/uL ABG pO2 70 L (83-108) mmHg ABG Total CO2 26 H (19-24) mmol/L Sodium (137-145) mmol/L BUN (9-20) mg/dL Creatinine (0.66-1.25) mg/dL Glucose (74-99) mg/dL POC Glucose (mg/dL) 235 H (70-110) mg/dL Ammonia (<30) umol/L Vitamin B12 (200.0-944.0) pg/mL Microbiology - Last 24 Hours (Table) 08/28/23 22:30 Blood Culture - Preliminary Blood 08/28/23 21:50 Blood Culture - Preliminary Blood 08/29/23 01:17 Gram Stain - Final Sputum Sputum Culture - Final Staphylococcus aureus Moraxella(branhamella) catarra
[2023-09-01] MEDS: ACYCLOVIR SODIUM 900 MG in SODIUM CHLORIDE 0.9% 250 ML IVPB SCH (11:06)
[2023-09-01 11:24] LABS: Glucose,Whole Blood 293 mg/dL (70-110)
--- NOTE | 2023-09-01 11:35 | P.PN ---
Subjective Progress Note Date: 09/01/23 Principal diagnosis: Respiratory failure. Acute on chronic systolic congestive heart failure with fluid overload and right-sided pleural effusion This is a pleasant 53-year-old male patient with a known history of asthma, neck and ongoing tobacco dependence, marijuana use, coronary artery disease, congestive heart failure, chronic obstructive pulmonary disease, diabetes lambert itus, hyperlipidemia, hypertension, ischemic cardiomyopathy with previous AICD placement, nonhealing ulceration of the right heel with subsequent [id number] amputation on July 26, 2023, chronic kidney disease receiving hemodialysis Saturday, diabetes mellitus, obstructive sleep apnea with CPAP use. He missed his dialysis on Saturday due to having an important meeting to go to. He presented here late last night with worsening shortness of breath and dyspnea on exertion. He also had increased lower extremity edema. Chest x-ray revealed a large right pleural effusion. White count platelets 189. INR 1.4. Sodium 132. Potassium 5.4. Bicarb 23. BUN 83. Creatinine 6.21. Glucose 188. Pro BNP level 72,100. Troponin 0.035. Viral screen negative. Ultrasound of the right chest revealed a 10.6 cm pocket however there was lung tissue seen within the fluid. He is seen today in consultation in the emergency department. He is currently sitting up on the stretcher. Awake and alert in no acute distress. Only maintaining O2 saturation in the 90s on 3 L/min per nasal cannula. Has been afebrile. Hemodynamically stable Patient was reevaluated today on 08/23/2023, he is resting in bed, receiving hemodialysis, chest x-ray this morning continues to show good sized right-sided pleural effusion however the ultrasound showed lung tissue which would likely interfere with the thoracentesis hence I am recommending for now medical therapy/hemodialysis and ultrafiltration. If no improvement could consider repeat ultrasound and proceed with right-sided thoracentesis. Patient does not seem to be in distress, he is actually on 3 L nasal cannula, and his O2 satur ation is in the 90s. Blood pressure is stable. CBC is relatively normal basic metabolic profile is normal BUN is 62 creatinine 5.09 Patient was reevaluated today on 08/25/2023, patient underwent right-sided thoracentesis yesterday, doing well today, no coughing no wheezing, on 3 L nasal cannula with O2 sats of 98%. Patient is scheduled to have hemodialysis again today. The pleural effusion I drained yesterday came back to be exudative in nature, cultures are pending cytology is pending. BBC count today is 11.3 hemoglobin is 11 basic metabolic profile is normal BUN is 40 creatinine 3.46 Gr am stain on the pleural effusion is negative Progress note dated August 26, 2023. The patient appears to be doing relatively well. The patient is currently undergoing hemodialysis. The plan is to remove 4 L of fluid today. According to the nephrology nurse, the patient is going to have daily hemodialysis. Currently, he is on 5 L nasal cannula. He is not manifesting any signs or symptoms of respiratory distress. In addition, the patient can use BiPAP, with settings of 12/6, and 40%. No new labs today other than a phosphorus of 3.8, and a glucose of 119. Chest x-ray shows ongoing pulmonary vascular congestion, and a moderate right-sided pleural effusion, with some basilar atelectasis. Progress note dated August 27, 2023. 53-year-old male seen in room 370. He is currently undergoing hemodialysis. The patient could not sustain himself on nasal cannula, so is back on BiPAP, wi th settings of 12/6, and 40%. The plan for hemodialysis today is to remove 3 L of fluid. The patient is not receiving any IV fluids either. Labs today include a sodium 132, potassium 4.3, chloride 96, CO2 23, anion gap 13, BUN 28, creatinine 2.92. Glucose is 129 with a calcium of 8.9. Chest x-ray from today shows a large right-sided pleural effusion, with adjacent atelectasis. In addition, there is evidence of vascular overload. Progress note dated August 28, 2023. 53-year-old male seen in room 370. The patient is currently undergoing hemodialysis. He is currently on BiPAP, with settings of 13/6 and 40%. The plan for hemodialysis today is removal of 3 L of fluid. Yesterday, August 27, he had 3.1 L of fluid removed. The patient had an ultrasound of his chest ordered by the primary service. There is a small pocket of fluid on the right, only measuring 3.7 cm. There appears to be some debris in the pleural space as well. The left pleural space has no fluid. We tried to have a conversation with the patient yesterday about CODE STATUS, but I do not believe he was lucid enough to understand the conversation. Current labs today include a glucose of 167. Labs from yesterday, reviewed. His BUN and creatinine from yesterday was 28 and 2.92. Progress note dated August 29, 2023. 53-year-old male who developed acute respiratory failure yesterday, requiring intubation and mechanical ventilation. The patient was transferred to the intensive care unit. A left subclavian triple-lumen catheter was placed, as well as a left radial arterial line. Currently, the patient remains on the mechanical ventilator. Settings include volume assist-control, rate 28, tidal volume 450, FiO2 50%, PEEP of 5. Blood gases show pO2 of 74, pCO2 of 45, pH 7.37. The patient is on propofol at 25 mcg/kg/min, saline at 20 cc an hour, and norepinephrine at 11 mcg/min. The patient's procalcitonin level was 2. The patient is on cefepime. Tube feedings will be started today. White count is 41.2, hemoglobin 9.7, hematocrit 33.1, and platelet count 251,000. Sodium 136, potassium 3.8, chloride 98, CO2 24, anion gap 14, BUN 34, creatinine 3.09. Calcium is 9.2. Glucose is 175. Pleural fluid analysis is negative. Chest x- ray shows some minimal perihilar opacity on the right side, and a small right- sided pleural effusion. Progress note dated August 30, 2023. 53-year-old male seen in the intensive care unit, room 256. He remains on the mechanical ventilator. His ventilator settings include volume assist-control, rate 28, tidal volume 450, FiO2 50%, PEEP of 5. Blood gases show a pO2 of 93, pCO2 of 48, pH of 7.36. The patient is currently on propofol 25 mcg/kg/min, and norepinephrine at 10 mcg/min. No IV fluids. Hemodialysis is being done today. The plan is to remove 3 L. He is getting Nepro at 38 cc an hour, which is goal. He continues on cefepime. White count 38.7, hemoglobin 10.1, hematocrit 33.8, and platelet count 204,000. Sodium 136, potassium 3.7, chloride 102, CO2 26, BUN 34, creatinine 2.75. Glucose is 236. Calcium 9, magnesium 2.1. Urine reveals gram-negative bacilli. Chest x-ray shows diminished lung volumes on the right, with some atelectasis or infiltrate at the right lung base, and a right- sided pleural effusion. The patient continues on cefepime. Progress note dated August 31, 2023. 53-year-old male seen in the intensive care unit, room 256. The patient remains on the mechanical ventilator. He is on the volume assist-control, rate 28, tidal volume 450, FiO2 50%, and PEEP of 5. Blood gases show pO2 of 72, pCO2 of 46, and a pH of 7.37. The patient remains on propofol at 15 mcg/kg/min, and norepinephrine at 11 mcg/min. The patient is getting Nepro at 38 cc an hour, which is goal. The patient is currently on cefepime. Will add some vancomycin. Microbiology showing gram-negative bacilli in the urine, and presumptive Staph aureus in the sputum from August 29. Chest x-ray shows bilateral infiltrates. Chest x-ray is essentially unchanged. Progress note dated September 01, 2023. 53-year-old male seen in the intensive care unit, room 256. The patient is still on the mechanical ventilator. He is on volume assist-control, rate 28, tidal volume 450, FiO2 40%, PEEP of 5. Blood gases show pO2 of 70, pCO2 of 43, and a pH of 7.36. The patient is on propofol at 20 mcg/kg/min, and norepinephrine at 15 mcg/min. The patient is receiving Nepro at 39 cc now which is goal. A CT scan of the brain was done. It was negative. An EEG is currently pending. The patient continues on vancomycin and cefepime. The patient's Daily interruption of sedation was done yesterday, and unfortunately, the patient had a very poor response, and, did not seem to wake up, off the propofol. For that reason, neurology was consulted. The EEG was ordered as well as the CAT scan. White count is 31.9, hemoglobin 10.4, hematocrit 34.9, platelet count normal. Sodium 133, potassium 4.8, chlorides 101, CO2 23, BUN 46, creatinine 2.57. Glucose is 293. Sputum was positive for Staph aureus and Moraxella catarrhalis. Urine was positive for gram-negative bacilli. Chest x- ray shows focal infiltrate, right midlung, with associated right-sided effusion. Objective - Vital Signs Vital signs: Vital Signs Temp 100.8 F H 09/01/23 09:30 Pulse 113 H 09/01/23 11:15 Resp 32 H 09/01/23 11:15 BP 88/68 09/01/23 10:15 Pulse Ox 92 L 09/01/23 11:15 FiO2 40 09/01/23 11:12 Intake & Output 08/31/23 09/01/23 09/01/23 18:59 06:59 18:59 Intake Total 4489.227 5442.130 240.288 Output Total 0 0 0 Balance 3949.609 7002.130 240.288 Weight 91.5 kg Intake: IV 36 36 3 .9 3cc/hr A-line 36 36 3 Intake, IV Titration 1044.143 512.130 159.288 Amount Cefepime 2 gm In Sodium 100 100 Chloride 0.9% 100 ml @ 25 mls/hr IVPB Q12HR LAN Rx #:[id number] Norepinephrine 8 mg In 359.25 268.53 146.220 Sodium Chloride 0.9% 250 ml @ 0.03 MCG/KG/MIN 5. 207 mls/hr IV .Q24H LAN Rx#:[id number] Vancomycin 1,500 mg In 500 Sodium Chloride 0.9% 500 ml 500 ml @ 167 mls/hr IVPB Q24H LAN Rx#: [id number] propofoL 1,000 mg In 84.893 143.600 13.068 Empty Bag 1 bag @ 15 MCG/ KG/MIN 8.91 mls/hr IV . [id number] LAN Rx#:[id number] Tube Feeding 155 429 78 Other 110 Output: Urine 0 0 0 ABP, PAP, CO, CI - Last Documented Arterial Blood Pressure 89/50 - Exam No acute distress, sedated, with an orally placed endotracheal tube, and NG tube. HEENT examination is grossly unremarkable. Neck supple. Full range of motion. No adenopathy thyromegaly or neck vein distention. Cardiovascular examination reveals regular rhythm rate. S1-S2 normal. No S3 or S4. No discernible murmur noted. Heart rate 113 bpm. Heart sounds are distant. Lungs reveal bilateral crackles and rhonchi. Breath sounds are equal bilaterally. No wheezes. Saturations are 93 % on the ventilator. Abdomen is soft, but obese. Bowel sounds are noted. Extremities are intact. No cyanosis or clubbing. Bilateral lower extremity edema is noted. Right leg amputation. Skin is without rash or lesion. Neurologic examination cannot be assessed at this time. - Labs CBC & Chem 7: 09/01/23 04:30 09/01/23 04:30 Labs: Abnormal Lab Results - Last 24 Hours (Table) 08/31/23 08/31/23 08/31/23 Range/Units 12:04 16:21 16:21 WBC (3.8-10.6) k/uL RBC (4.30-5.90) m/uL Hgb (13.0-17.5) gm/dL Hct (39.0-53.0) % MCHC (31.0-37.0) g/dL RDW (11.5-15.5) % Neutrophils # (1.3-7.7) k/uL Monocytes # (0-1.0) k/uL ABG pO2 (83-108) mmHg ABG Total CO2 (19-24) mmol/L Sodium (137-145) mmol/L BUN (9-20) mg/dL Creatinine (0.66-1.25) mg/dL Glucose (74-99) mg/dL POC Glucose (mg/dL) 284 H (70-110) mg/dL Ammonia 32 H (<30) umol/L Vitamin B12 1434.0 H (200.0-944.0) pg/mL 08/31/23 09/01/23 09/01/23 Range/Units 17:21 02:24 04:30 WBC (3.8-10.6) k/uL RBC (4.30-5.90) m/uL Hgb (13.0-17.5) gm/dL Hct (39.0-53.0) % MCHC (31.0-37.0) g/dL RDW (11.5-15.5) % Neutrophils # (1.3-7.7) k/uL Monocytes # (0-1.0) k/uL ABG pO2 (83-108) mmHg ABG Total CO2 (19-24) mmol/L Sodium 133 L (137-145) mmol/L BUN 46 H (9-20) mg/dL Creatinine 2.57 H (0.66-1.25) mg/dL Glucose 274 H (74-99) mg/dL POC Glucose (mg/dL) 178 H 257 H (70-110) mg/dL Ammonia (<30) umol/L Vitamin B12 (200.0-944.0) pg/mL 09/01/23 09/01/23 09/01/23 Range/Units 04:30 06:10 06:35 WBC 31.9 H (3.8-10.6) k/uL RBC 3.76 L (4.30-5.90) m/uL Hgb 10.4 L (13.0-17.5) gm/dL Hct 34.9 L (39.0-53.0) % MCHC 29.8 L (31.0-37.0) g/dL RDW 16.8 H (11.5-15.5) % Neutrophils # 28.6 H (1.3-7.7) k/uL Monocytes # 1.2 H (0-1.0) k/uL ABG pO2 70 L (83-108) mmHg ABG Total CO2 26 H (19-24) mmol/L Sodium (137-145) mmol/L BUN (9-20) mg/dL Creatinine (0.66-1.25) mg/dL Glucose (74-99) mg/dL POC Glucose (mg/dL) 235 H (70-110) mg/dL Ammonia (<30) umol/L Vitamin B12 (200.0-944.0) pg/mL 09/01/23 Range/Units 11:22 WBC (3.8-10.6) k/uL RBC (4.30-5.90) m/uL Hgb (13.0-17.5) gm/dL Hct (39.0-53.0) % MCHC (31.0-37.0) g/dL RDW (11.5-15.5) % Neutrophils # (1.3-7.7) k/uL Monocytes # (0-1.0) k/uL ABG pO2 (83-108) mmHg ABG Total CO2 (19-24) mmol/L Sodium (137-145) mmol/L BUN (9-20) mg/dL Creatinine (0.66-1.25) mg/dL Glucose (74-99) mg/dL POC Glucose (mg/dL) 293 H (70-110) mg/dL Ammonia (<30) umol/L Vitamin B12 (200.0-944.0) pg/mL Microbiology - Last 24 Hours (Table) 08/28/23 22:30 Blood Culture - Preliminary Blood 08/28/23 21:50 Blood Culture - Preliminary Blood 08/29/23 01:17 Gram Stain - Final Sputum Sputum Culture - Final Staphylococcus aureus Moraxella(branhamella) catarra Assessment and Plan Assessment: Acute hypoxemic and hypercapnic respiratory failure, S/P intubation, and mechanical ventilation, on August 28, 2023. Acute on chronic systolic congestive heart failure, secondary to fluid volume overload from missed hemodialysis. Ischemic cardiomyopathy, with an ejection fraction of 20%. Status postplacement of a automatic implantable cardiac defibrillator. Stage III chronic kidney disease, secondary to diabetic nephropathy, currently on hemodialysis, Saturday and Saturday. Acute kidney injury secondary to recently missed hemodialysis session. Recent right qohvy-gtl-tich amputation secondary to an infected right heel diabetic ulcer. Lower extremity chronic venous insufficiency. History of chronic tobacco dependence, with underlying COPD. History of marijuana use. Type 2 diabetes mellitus, controlled with insulin. Hyperlipidemia. Moderate to severe mitral regurgitation/moderate tricuspid regurgitation, and severe pulmonary hypertension. Chronic low back pain. Essential hypertension. Obstructive sleep apnea syndrome, intermittent use of CPAP. Diabetic peripheral neuropathy. Status post right-sided thoracentesis, with nearly 1200 cc drained. Plan: Plan dated August 26, 2023. The patient will apparently have daily hemodialysis for the time being, according to nephrology. The patient is on nasal cannula at 5 L, or BiPAP, at 12/6, and 40%. The patient appears chronically ill. He continues on bronchodilators. The patient did have a right-sided thoracentesis. The patient is currently on 5 L, or BiPAP. Labs, x-rays, medications are reviewed. The patient's overall prognosis remains guarded. He looks much older than his stated age of 53 years. We will continue to follow make recommendations along the way. Plan dated August 27, 2023. The patient is currently on hemodialysis. The plan is to remove about 3 L today. The patient's chest x-ray is reviewed. Labs, and medications were also reviewed. The patient's BiPAP settings are 12/6, and 40%. The patient is not receiving any IV fluids. I tried to have a conversation with the patient today about CODE STATUS. The patient was in and out, and really could not have an intelligent conversation about CODE STATUS, and whether or not he would want intubation with mechanical ventilation. According to the nurse, the patient's ex- wants nothing to do with the patient. Not sure that there is any other family members. Prognosis is poor. We will continue to follow, and make recommendations along the way. Plan dated August 28, 2023. The patient looks about the same today as he did yesterday. He continues on BiPAP, with settings of 13/6, and 40%. The patient had hemodialysis yesterday, with 3.1 L of fluid removed. The goal was to remove 3 L today. Labs, x-rays, and medications are reviewed. The patient's overall prognosis is not very good. An ultrasound was ordered by the primary hospital service. There is no fluid on the left. A very small pocket of 3.7 cm on the right. There was some debris in the pleural space as well. I do not believe thoracentesis would be warranted at this time. The patient is a full code. We attempted to have a conversation with him yesterday, but I do not believe he was lucid to understand the conversation, and as to whether or not he would want to be on life support. Plan dated August 29, 2023. Yesterday, the patient developed acute hypoxemic and hypercapnic respiratory failure. The patient was transferred down to the intensive care unit, where he was intubated by anesthesia. A left subclavian triple-lumen catheter was placed, as well as a left radial arterial line. The patient remains on the ve ntilator. He is on propofol at 25 mcg/kg/min, saline at 20 cc an hour, norepinephrine at 11 mcg/min. Will start tube feedings today. His procalcitonin level was 2. He is on cefepime. Labs, x-rays, and medications are reviewed. The patient's overall prognosis remains rather poor. Unfortunately, there were no family members available. We will continue to follow the patient, make recommendations along the way. Prognosis is poor. Plan dated August 30, 2023. The patient is seen today in room 256. The patient remains on the mechanical ventilator. The patient is receiving norepinephrine at 10 mcg/min, and propofol at 25 mcg/kg/min. No additional IV fluids. The patient had hemodialysis this morning. The goal is to remove 3 L. The patient is receiving tube feedings at goal. We will plan on doing daily interruption of sedation today, and to evaluate the patient for possible spontaneous breathing trial. Additional recommendations and suggestions are forthcoming. Labs, x-rays, and medications are reviewed. Prognosis is certainly very poor. We will continue to follow. Plan dated August 31, 2023. The patient is seen today in room 256. The patient remains on mechanical ventilator. The patient did have a daily interruption of sedation yesterday, he did not have a spontaneous breathing trial. His mental status was poor. The patient continues on propofol, and norepinephrine at 11 mcg/min. The patient is receiving tube feedings with Nepro, at goal. The patient has a gram-negative bacilli in the urine, and for that he is on cefepime. His sputum reveals presumptive staph. We added vancomycin. Labs, x-rays, and medications are reviewed. We will continue to follow make recommendations along the way. Overall, the patient's prognosis is very poor. Plan dated September 01, 2023. The patient is seen and evaluated in room 256. Off of sedation yesterday, the patient had a very poor response, and a CT scan of the brain was ordered, which was negative. Neurology saw the patient. Stat EEG was ordered. This could just be a metabolic/toxic encephalopathy from sepsis, or something more significant. Labs, x-rays, and medications are reviewed. The patient continues on vancomycin and cefepime. Culture data is reviewed. The patient is on propofol at 20 mcg/kg/min, and norepinephrine at 15 mcg/min. Blood gases are reasonable. Prognosis is guarded. Will continue to follow the patient, make recommendations along the way. Time with Patient: Greater than 30
--- NOTE | 2023-09-01 12:24 | P.PN ---
Subjective Progress Note Date: 09/01/23 I am seeing the patient and he is about the same. He continues to be on IV Propofol 20mcg/kg/min. He continues to be febrile with tmax overnight of 103F. Patient is on Vancomycin and Cefepime Objective - Vital Signs Vital signs: Vital Signs Temp 100.8 F H 09/01/23 09:30 Pulse 113 H 09/01/23 11:15 Resp 32 H 09/01/23 11:15 BP 88/68 09/01/23 10:15 Pulse Ox 92 L 09/01/23 11:15 FiO2 40 09/01/23 11:12 Intake & Output 08/31/23 09/01/23 09/01/23 18:59 06:59 18:59 Intake Total 8126.488 7752.130 240.288 Output Total 0 0 0 Balance 0326.171 9727.130 240.288 Weight 91.5 kg Intake: IV 36 36 3 .9 3cc/hr A-line 36 36 3 Intake, IV Titration 1044.143 512.130 159.288 Amount Cefepime 2 gm In Sodium 100 100 Chloride 0.9% 100 ml @ 25 mls/hr IVPB Q12HR LAN Rx #:[id number] Norepinephrine 8 mg In 359.25 268.53 146.220 Sodium Chloride 0.9% 250 ml @ 0.03 MCG/KG/MIN 5. 207 mls/hr IV .Q24H LAN Rx#:[id number] Vancomycin 1,500 mg In 500 Sodium Chloride 0.9% 500 ml 500 ml @ 167 mls/hr IVPB Q24H LAN Rx#: [id number] propofoL 1,000 mg In 84.893 143.600 13.068 Empty Bag 1 bag @ 15 MCG/ KG/MIN 8.91 mls/hr IV . [id number] LAN Rx#:[id number] Tube Feeding 155 429 78 Other 110 Output: Urine 0 0 0 ABP, PAP, CO, CI - Last Documented Arterial Blood Pressure 89/50 - Exam GENERAL: The patient is lying in bed and does not appear in acute distress. LUNG: Intubated on ventilator. NEUROLOGICAL: Very Limited. Patient is on IV Propofol 20mcg/kg/min. Is comatose. GCS 3 (E1, VT1, M1). I had to manually open his eyes. Primary gaze is midline. The pupils are round the right is about 2 mm while the left is about 3 mm and is reactive to light equally. No facial weakness. Is breathing over the vent. Mild gag/cough to suctioning. Motor:Could not assess individual muscle. Has decrease tone. Not withdrawaling to painful stimuli. No sponatenous movement. Has above right knee amputation. Sensation:Unable to assess light touch. Reflexes: 2+ in uppers While lowers are 1+. Plantar: Mute on the left. Has above knee amputation. Some of the Workup during his hospital visit consisted of: On initial presentation afebrile but since 08/29/23 has been febrile. Tmax overnight 103.1F During this visit the patient leukocytosis was trended up compared to initial presentation but since the last 3 days it's been trending down. Got as high as 41,000. It's predominantly neutrophilic Sodium is 133, creatinine is 2.57 which is trending down compared to initial presentation on the 08/21/2023. Creatinine is a 41 which is trending up today compared to last couple days. Calcium is 8.7, magnesium is 2.1 Ammonia 32 Serum folate 17.8 Vitamin B12: 1434 TSH: 4.040 AST and ALT is within normal limits Urine analysis seems underlying urinary tract infection with urine white blood cell more than 182, urine white blood cell clumps is many bacteria was few. RSV,HETAL-Covid 2, influenza A and the B, HSV 1 and 2, CMV, adenovirus, parainfluenza, enterovirus are nondetected Urine culture is grame negat bacili and gram stain sputum is staph aureus moraxella catarra CT head: It is reported as age-related atrophic and chronic small vessel ischemic change without acute intracranial process seen at this time. I personally reviewed the CT of the head and the patient has old stroke over the left cerebellum as well as left frontal upon reviewing prior images he had the dose reported strokes that were remote as well on the images in May 2023 - Labs CBC & Chem 7: 09/01/23 04:30 09/01/23 04:30 Labs: Abnormal Lab Results - Last 24 Hours (Table) 08/31/23 08/31/23 08/31/23 Range/Units 16:21 16:21 17:21 WBC (3.8-10.6) k/uL RBC (4.30-5.90) m/uL Hgb (13.0-17.5) gm/dL Hct (39.0-53.0) % MCHC (31.0-37.0) g/dL RDW (11.5-15.5) % Neutrophils # (1.3-7.7) k/uL Monocytes # (0-1.0) k/uL ABG pO2 (83-108) mmHg ABG Total CO2 (19-24) mmol/L Sodium (137-145) mmol/L BUN (9-20) mg/dL Creatinine (0.66-1.25) mg/dL Glucose (74-99) mg/dL POC Glucose (mg/dL) 178 H (70-110) mg/dL Ammonia 32 H (<30) umol/L Vitamin B12 1434.0 H (200.0-944.0) pg/mL 09/01/23 09/01/23 09/01/23 Range/Units 02:24 04:30 04:30 WBC 31.9 H (3.8-10.6) k/uL RBC 3.76 L (4.30-5.90) m/uL Hgb 10.4 L (13.0-17.5) gm/dL Hct 34.9 L (39.0-53.0) % MCHC 29.8 L (31.0-37.0) g/dL RDW 16.8 H (11.5-15.5) % Neutrophils # 28.6 H (1.3-7.7) k/uL Monocytes # 1.2 H (0-1.0) k/uL ABG pO2 (83-108) mmHg ABG Total CO2 (19-24) mmol/L Sodium 133 L (137-145) mmol/L BUN 46 H (9-20) mg/dL Creatinine 2.57 H (0.66-1.25) mg/dL Glucose 274 H (74-99) mg/dL POC Glucose (mg/dL) 257 H (70-110) mg/dL Ammonia (<30) umol/L Vitamin B12 (200.0-944.0) pg/mL 09/01/23 09/01/23 09/01/23 Range/Units 06:10 06:35 11:22 WBC (3.8-10.6) k/uL RBC (4.30-5.90) m/uL Hgb (13.0-17.5) gm/dL Hct (39.0-53.0) % MCHC (31.0-37.0) g/dL RDW (11.5-15.5) % Neutrophils # (1.3-7.7) k/uL Monocytes # (0-1.0) k/uL ABG pO2 70 L (83-108) mmHg ABG Total CO2 26 H (19-24) mmol/L Sodium (137-145) mmol/L BUN (9-20) mg/dL Creatinine (0.66-1.25) mg/dL Glucose (74-99) mg/dL POC Glucose (mg/dL) 235 H 293 H (70-110) mg/dL Ammonia (<30) umol/L Vitamin B12 (200.0-944.0) pg/mL Microbiology - Last 24 Hours (Table) 08/28/23 22:30 Blood Culture - Preliminary Blood 08/28/23 21:50 Blood Culture - Preliminary Blood 08/29/23 01:17 Gram Stain - Final Sputum Sputum Culture - Final Staphylococcus aureus Moraxella(branhamella) catarra Assessment and Plan Assessment: This is a 53-year-old gentleman with history of chronic kidney insufficiency who presents to the emergency department because shortness of breath, dyspnea on exertion. Seems the patient has missed his dialysis prior to that. Patient has risk medical issues and the is seems the patient the has sepsis. The nurse the patient was following commands yesterday but today even with the house and the patient he was not following commands. Encephalopathy due to multifactorial but predominantly septic from urosepsis (gram neg bacilli) as well as pneumoia (staph aureus moraxella catarra). He also has component of metabolic encephalopathy, ureimic as well as sedation (IV Propofol). Current CT head is negative for acute process. Sepsis shock Acute on chronic kidney insufficiency on dialysis and missed his dialysis. Care chronic systolic congestive heart failure secondary due to fluid overload from this diagnosis Acute hypoxic hypercapnic respiratory failure status post intubation Minimal elevated ammonia 32 (normal <30). Hypothyroidism (TSH 5.77 and free T4 0.72 on 07/30/23) and currently not on medi cation. But repeat TSH is normal. History of old stroke on left cerebellum and frontal. Ischemic cardiomyopathy with ejection fraction 20% and patient has defibrillator Type 2 diabetes on insulin Moderate to severe mitral regurgitation with moderate tricuspid regurgitation and severe pulmonary hypertension Recent above right the knee amputation secondary due to infected right heel diabetic ulcer Lower extremity venous insufficiency Diabetic perform neuropathy History Hypertension Obstructive sleep apnea Tobacco use Marijuana use Plan: Today patient will have STAT EEG to rule out seizure or discharge. I feel unlikely seizures. Because of fever and confusion, I will pursue with Lumbar puancture to rule out meningoencephalitis. I stopped subq heparin. It seems the nursing staff spoke with anesthesiologist electrical engineering draftsperson regarding the lumbar puncture and were told cannot perform since on subq heparin. Will attempt Lumbar Puncture tomorrow. In the meantime the patient is on vancomycin, cefepime 2 g every 12 hours. I will change Cefepime to ceftriaxone every 12 hours and started patient on ampicillin 2 g every 8 hours as well as acyclovir for meningealencephalitis coverage as well. I will defer that antibiotic/antiviral medication modification to I.D. team. Patient had hypothyroidism (TSH 5.77 and free T4 0.72 on 07/30/23) and current TSH and currently not on medication. Will defer management to primary team. Patient has sepsis and I.D. is consulted. Recommend holiday sedation for better neurological examination. Avoid opiates/sedation or any medication that can worsening his mentation for better neurological assessment. Nephrology, Vascular surgeon are on board Will defer the rest of medical management to primary and other specialist. Overall condition is very guarded. The plan is discussed with his nurse. The plan is discussed with ICU attending and I.D. team. Dr. Calabrese will resume neurology coverage tomorrow A.M. Time with Patient: Greater than 30
--- NOTE | 2023-09-01 14:31 | P.PN ---
Progress Note - Text Progress Note Date: 09/01/23 Chief Complaint: Short of breath This is a 53-year-old patient, follows with Dr. Rodríguez. Chronic stable medical condition include CHF EF less than 20%, COPD, diabetes mellitus type 2, hypertension, hyperlipidemia, obstructive sleep apnea, anxiety, AICD, lower extremity venous insufficiency. Patient had lower extremity wounds for which she followed with Dr. Kaur from vascular and ID Dr. Abbasi. Multiple admissions. Patient finally agreed to amputation for the right foot wound that was not healing.. Finally on July 26 patient underwent right above-knee amputation by Dr. Kaur from vascular. Patient was discharged to a [facility]. Patient had been noncompliant with hemodialysis prior to that admission. Patient presented to our ER after being progressively increasing shortness of breath. He missed his dialysis yesterday. He became increasingly short of breath. Increasing edema. Some cough. Denies any fever and chills. Tired. Nephrology was called. Patient getting 3 L removed with dialysis today. Patient currently a resident of [facility]. Patient received midodrine today before started dialysis August 23: Tolerated breakfast well. 3 L of fluid being removed today. Patient is due for his generator change on August 28. Cardiology consulted and informed. Has edema. August 24: Oral intake good. Diet. Dialysis per nephrology. Right-sided thoracentesis 1156 cc removed. By pulmonary August 25: Tired. Congested chest. Short of breath. Pulse ox 87% on room air. August 26: Slightly less short of breath. To still present. Getting 4 L removed today. Blood pressure running in the 90s. But more awake August 27: Remains short of breath. BiPAP. Easily gets short winded. Getting dialysis again today. About 3 L plan to be removed. Some decrease in edema. Chest x-ray showing significant right-sided pleural effusion. Hopefully patient will benefit from right thoracentesis. We can have a further discussion with him about CODE STATUS in that case. Patient lives with his 20-year-old son. Dr. GIBSON from pulmonary following August 28: Remains on BiPAP. Somewhat lethargic. Did attempt to speak to the patient Yumiko CODE STATUS. I felt he started send no but given his mentation cannot be sure. Did communicate with Dr. GIBSON from pulmonary. Does not feel there is any significant fluid on the right side for thoracentesis. Dialysis today again. 2200 cc removed. Prognosis guarded. Poor oral intake. Right side could also be infiltrate given the elevated white count. Add cefepime August 29: Patient was moved to the ICU yesterday for further respiratory distr ess. Intubated. Patient on IV propofol and Levophed. On ventilator support. Spoke to the nurse to see if he can get the local authorities/progress to contact patient's son and have him come in. Patient's ex- is completely estranged from him. Has no other known family. I discussed with Dr. Mares from nephrology. We both agree that patient's prognosis is very poor. And hospice would be appropriate. August 30: ICU. Remains intubated. FiO2 50 and PEEP of 5. Drips include IV propofol and norepinephrine. Tube feeding through NG tube 30 cc an hour. No family can be tracked down. Temporary guardian hearing scheduled for 09/06/2023 at 8:30 AM.. FiO2 50 and a PEEP of 5. August 31: ICU. Intubated. IV drips include propofol and norepinephrine. Tube feeding through NG tube. Sedated. Hemodialysis today. Febrile. Vancomycin added. Blood cultures, peripherally and through dialysis catheter. September 01: ICU. Remains intubated. Drips include norepinephrine at 0.8 mics and propofol at 15 mcg. Tube feeding at 39 cc an hour. FiO2 40 and PEEP of 5. Sinus rhythm. Active Medications Acetaminophen (Acetaminophen Tab 325 Mg Tab) 650 mg PO Q6HR PRN PRN Reason: Mild Pain or Fever > 100.5 Last Admin: 09/01/23 08:45 Dose: 650 mg Hydrocodone Bitart/Acetaminophen (Hydrocodone/Apap 5-325mg 1 Each Tab) 1 each PO Q8HR LAN Last Admin: 09/01/23 08:45 Dose: 1 each Albuterol/Ipratropium (Ipratropium-Albuterol 3 Ml Neb) 3 ml INHALATION RT-Q2H PRN PRN Reason: Shortness Of Breath Or Wheezing Last Admin: 08/25/23 03:36 Dose: 3 ml Albuterol/Ipratropium (Ipratropium-Albuterol 3 Ml Neb) 3 ml INHALATION RT-Q4H LAN Last Admin: 09/01/23 11:12 Dose: Not Given Amiodarone HCl (Amiodarone 200 Mg Tab) 200 mg PO DAILY [facility] Last Admin: 09/01/23 08:46 Dose: 200 mg Aspirin (Aspirin 81 Mg) 81 mg PO DAILY [facility] Last Admin: 09/01/23 08:46 Dose: 81 mg Calcium Acetate (Calcium Acetate 667 Mg Tab) 667 mg PO TID-W/MEALS [facility] Last Admin: 09/01/23 12:17 Dose: 667 mg Calcium Carbonate/Glycine (Calcium Carbonate 500 Mg Chewable) 1,000 mg PO Q4HR PRN PRN Reason: Dyspepsia Chlorhexidine Gluconate (Chlorhexidine Gluconate 15 Ml Cup) 15 ml MUCOUS MEM BID [facility] Last Admin: 09/01/23 08:45 Dose: 15 ml Dextrose/Water (Dextrose 50% Syringe 50 Ml) 25 ml IVP PER PROTOCOL PRN; Protocol PRN Reason: Hypoglycemia Last Admin: 08/25/23 12:36 Dose: 25 ml Dextrose/Water (Dextrose 50% Syringe 50 Ml) 50 ml IVP PER PROTOCOL PRN; Protocol PRN Reason: Hypoglycemia Duloxetine HCl (Duloxetine Hcl 30 Mg Capsule.Dr) 30 mg PO DAILY [facility] Last Admin: 09/01/23 08:46 Dose: 30 mg Famotidine (Famotidine 20 Mg Tab) 20 mg PO DAILY [facility] Last Admin: 09/01/23 08:46 Dose: 20 mg Fluphenazine HCl (Fluphenazine 1 Mg Tab) 3 mg PO HS [facility] Last Admin: 08/31/23 20:01 Dose: 3 mg Propofol 1,000 mg/ IV Solution 100 mls @ 8.91 mls/hr IV .[id number] [facility]; Protocol Last Admin: 09/01/23 14:08 Dose: 15 mcg/kg/min, 8.91 mls/hr Norepinephrine Bitartrate 8 mg (/ Sodium Chloride) 258 mls @ 5.207 mls/hr IV .Q24H [facility]; Protocol Last Titration: 09/01/23 14:19 Dose: 0.19 mcg/kg/min, 32.978 mls/hr Vancomycin HCl 1,500 mg/ (Sodium Chloride) 500 mls @ 167 mls/hr IVPB Q24H [facility]; Protocol Last Admin: 09/01/23 09:24 Dose: 167 mls/hr Acyclovir Sodium 900 mg/ (Sodium Chloride) 268 mls @ 268 mls/hr IVPB Q12HR [facility]; Protocol Last Admin: 09/01/23 11:06 Dose: 268 mls/hr Ceftriaxone Sodium 2 gm/ (Sodium Chloride) 50 mls @ 100 mls/hr IVPB Q12HR LAN; Protocol Ampicillin Sodium 2,000 mg/ (Sodium Chloride) 100 mls @ 200 mls/hr IVPB Q8HR [facility]; Protocol Insulin Aspart (Insulin Aspart (Novolog) 100 Unit/Ml Vial) 0 unit SQ Q6HR [facility]; Protocol Last Admin: 09/01/23 12:17 Dose: 6 unit Insulin Detemir (Insulin Detemir (Levemir) 100 Unit/Ml Syr) 10 unit SQ HS [facility] Last Admin: 08/31/23 20:01 Dose: 10 unit Lactulose (Lactulose 20 Gm/30 Ml Cup) 20 gm PO DAILY PRN PRN Reason: Constipation Midodrine (Midodrine 5 Mg Tab) 10 mg PO AC-TID [facility] Last Admin: 09/01/23 12:17 Dose: 10 mg Multivitamins (Multivitamins, Thera 1 Each Tab) 1 each PO DAILY [facility] Last Admin: 09/01/23 08:46 Dose: 1 each Naloxone HCl (Naloxone 0.4 Mg/Ml 1 Ml Vial) 0.2 mg IV Q2M PRN PRN Reason: Opioid Reversal Nystatin (Nystatin 100,000 Unit/Ml Susp 500,000 Unit/5 Ml Cup) 500,000 unit PO QID [facility]; Protocol Last Admin: 09/01/23 12:17 Dose: 500,000 unit Ondansetron HCl (Ondansetron 4 Mg/2 Ml Vial) 4 mg IVP Q8HR PRN PRN Reason: Nausea And Vomiting Pantoprazole Sodium (Pantoprazole 40 Mg/10 Ml Vial) 40 mg IVP HS [facility] Last Admin: 08/31/23 20:01 Dose: 40 mg Petrolatum (Zinc Oxide Paste (Z-Guard) 1 Applic) 1 applic TOPICAL DAILY PRN; Protocol PRN Reason: Wound Healing Trazodone HCl (Trazodone Hcl 50 Mg Tab) 50 mg PO HS PRN PRN Reason: Agitation Social history: Lives with his 20-year-old son. Disabled. 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 Smoking 2 packs a day for most of his life . Stop drinking heavy alcohol about 20 years ago. Has done marijuana. Physical examination: VITAL SIGNS: 100.8, 117, 28, 85/50, 91% on ventilator GENERAL: Intubated sedated EYES: Pupils equal. Conjunctiva normal. HEENT: External appearance of nose and ears normal, ET tube NECK: JVD raised; masses not palpable. HEART: First and second heart sounds are normal; significant edema LUNGS: Respiratory rate increased; diminished breath sounds ABDOMEN: Soft, nontender, liver spleen not palpable, no masses palpable. PSYCH: Sedated NEUROLOGICAL: Sedated DERMATOLOGICAL: Right above-knee amputation. Left lower extremity wound INVESTIGATIONS, reviewed in the clinical context: Sputum culture [August 29] staff aureus, Moraxella Cattara September 01: White count 31.9 hemoglobin 10.4 platelets 197 potassium 4.8 creatinine 2.57 August 31: White count 37.5 hemoglobin 10.2 potassium 4.4 creatinine 2.57 August 29: White count 41.2 hemoglobin 9.7 platelets 251 potassium 3.8 BUN 34 creatinine 3.09 August 28: White count 24.8 hemoglobin 10 ABG: pH 7.28 pCO2 57 BUN 24 creatinine 2.44 August 27: Sodium 132 potassium 4.3 creatinine 2.92 August 23: White count 13.9 hemoglobin 10.9 platelets 194 potassium 5.2 BUN 62 creatinine 5.09 August 21, 2023: White count 22.8 hemoglobin 11 platelets were 89 sodium 132 potassium 5.4 BUN 83 creatinine 6.21 Troponin I 0.035. proBNP [id number] Influenza type A, type B, RSV, COVID-19: Not detected EKG tracing personally reviewed by me-normal sinus rhythm. Chest x-ray film personally reviewed by me-large right pleural effusion Chest ultrasound: Large right pleural effusion Assessment and plan: -Acute on chronic congestive heart failure nonischemic cardiomyopathy systolic dysfunction EF less than 20%: Worsening from missed hemodialysis.: Slow to respond Hemodialysis-as per nephrology AICD. Fluid restriction 1500 mL. Follow-up with cardiology and nephrology -Severe sepsis IV cefepime. IV ampicillin blood cultures through dialysis catheter with hemodialysis and peripheral. ID following IV acyclovir added -Acute uremic and hypoxic encephalopathy: Not improving -Acute hypoxic respiratory failure from fluid overload/CHF.: Not improving On ventilator support since August 28 -Right above-knee amputation by Dr. Yared Lugo on June 2024 Follow-up with Dr. Vincent -Right pleural effusion not felt to be significant. Pulmonary: Following -Possible right basilar pneumonia IV cefepime -Acute COPD exacerbation in a previous smoker Ventolin. DuoNeb-4 times daily. - AICD -Diabetes mellitus type 2 chronically on insulin, uncontrolled with [id number] Increase Levemir 20units subcu Diabetic diet. Accu-Cheks and sliding scale -Iron deficiency anemia aranesp -Hyperlipidemia Lipitor -End-stage kidney disease on hemodialysis Right IJ dialysis catheter -Hyponatremia-mild Fluid restriction -Chronic low back pain. Patient's had pain on and off for about 10 years. Has had prior surgery. Does not remember who did the surgery. When necessary pain medication -Hypotension. Midodrine -Obstructive sleep apnea sometimes uses CPAP machine -Diabetic peripheral neuropathy -Anxiety, depression Trazodone, Cymbalta -DJD Tylenol when necessary -AICD Due for generator change on August 28. Cardiology aware. -Lower extremity chronic venous insufficiency, with left lower extremity wounds Dr. Kaur consulted -Full code -Guardianship: Pending hearing on September 06, 2023. In the probate court. Not doing well. Being followed by multiple consultants. IV acyclovir added. Increase insulin. Past Medical History Past Medical History: Asthma, Coronary Artery Disease (CAD), Chest Pain / Angina, Heart Failure, COPD, Diabetes Mellitus, GERD/Reflux, Hyperlipidemia, Hy pertension, Myocardial Infarction (NH), Pneumonia, Sleep Apnea/CPAP/BIPAP, Supraventricular Tachycardia (SVT) Additional Past Medical History / Comment(s): Ischemic cardiomyopathy, chronic CHF, SVT, IDDM type II, KAMINI with CPAP occasionally used, chronic cervical/back pain, DJD, diabetic foot wounds x 4 months. Dialysis Last Myocardial Infarction Date:: 12/11/17 History of Any Multi-Drug Resistant Organisms: MRSA Date of last positivie culture/infection: 06/15/23 MDRO Source:: Right Foot Past Surgical History: Adenoidectomy, AICD, Back Surgery, Cholecystectomy, EPS, Heart Catheterization, Pacemaker, Tonsillectomy Additional Past Surgical History / Comment(s): 12/10/17 cardiac cath, previous cardiac cath, 09/02/14 AICD/pacer, EGD/colonoscopy, low back surgery with fusion. Past Anesthesia/Blood Transfusion Reactions: Motion Sickness Additional Past Anesthesia/Blood Transfusion Reaction / Comment(s): Pt states he received blood with back surgery without reaction. Type of Cardiac Device: Permanent Pacemaker, AICD Device Placement Date:: 09-02-14 Past Psychological History: ADD/ADHD, Anxiety Smoking Status: Current every day smoker Past Alcohol Use History: Occasional Past Drug Use History: Marijuana
[2023-09-01] MEDS: AMPICILLIN 2,000 MG in SODIUM CHLORIDE 0.9% 100 ML IVPB SCH (15:49)
[2023-09-01 18:08] LABS: Glucose,Whole Blood 298 mg/dL (70-110)
[2023-09-01] MEDS: INSULIN DETEMIR (LEVEMIR) 100 UNIT/ML SYR SQ SCH (20:35)
[2023-09-01 22:26] LABS: Magnesium 2.1 mg/dL (1.6-2.3)
--- NOTE | 2023-09-01 22:57 | P.CONS ---
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 failing medical therapy the patient status post right [id number] amputation patient presenting to the hospital 10 days ago for evaluation of increasing shortness of breath apparently the patient did miss his dialysis and subsequently presenting with increasing shortness of breath patient has been managed by admitting team pulmonary and nephrology and the patient has been dialyzed in addition to that the patient did have a thoracocentesis completed on 08/24/2023 and was culture negative patient did have worsening of his respiratory status requiring intubat ion and admission to the ICU on 08/28/2023 patient has been afebrile initial part of his hospital stay however the patient started running a low-grade fever of 99.9 on 08/29/2023 at midnight and since then the patient has been spiking a fever of 103 and 102 F patient is also tachycardic and hypertensive requiring pressor support patient is currently on the vent FiO2 is 40% no significant purulent se cretions through the ET patient did have a Munoz catheter placed during this admission however that was discontinued on the first after obtaining UA on the which was positive however the nursing staff mention patient hardly makes any urine patient did have a blood culture done which are currently pending urine is growing gram-negative bacilli sputum is growing MSSA and Moraxella patient was started on cefepime on 08/28/2022 vancomycin was added yesterday however his antibiotic has been switched over to acyclovir ampicillin Rocephin by neurology concerning for possible meningitis/encephalitis and infectious disease was consulted for further management of antibiotic therapy most information has been obtained from for review of his chart over the last 10 days and talking to nursing staff the patient is currently intubated on the vent and cannot provide any history and no family member at the bedside patient did have a chest x-ray last mention no changes and focally elevated right midlung zone and scattered infiltrates throughout both lung koehler Past Medical History Past Medical History: Asthma, Coronary Artery Disease (CAD), Chest Pain / A ngina, Heart Failure, COPD, Diabetes Mellitus, GERD/Reflux, Hyperlipidemia, Hypertension, Myocardial Infarction (ME), Pneumonia, Sleep Apnea/CPAP/BIPAP, Supraventricular Tachycardia (SVT) Additional Past Medical History / Comment(s): Ischemic cardiomyopathy, chronic CHF, SVT, IDDM type II, KAMINI with CPAP occasionally used, chronic cervical/back pain, DJD, diabetic foot wounds x 4 months. Dialysis Last Myocardial Infarction Date:: 12/11/17 History of Any Multi-Drug Resistant Organisms: MRSA Year Discovered:: 06/15/23 MDRO Source:: Right Foot Past Surgical History: Adenoidectomy, AICD, Back Surgery, Cholecystectomy, EPS, Heart Catheterization, Pacemaker, Tonsillectomy Additional Past Surgical History / Comment(s): 12/10/17 cardiac cath, previous cardiac cath, 09/02/14 AICD/pacer, EGD/colonoscopy, low back surgery with fusion. Past Anesthesia/Blood Transfusion Reactions: Motion Sickness Additional Past Anesthesia/Blood Transfusion Reaction / Comm: Pt states he received blood with back surgery without reaction. Type of Cardiac Device: Permanent Pacemaker, AICD Device Placement Date:: 09-02-14 Past Psychological History: ADD/ADHD, Anxiety Smoking Status: Current every day smoker Past Alcohol Use History: Occasional Past Drug Use History: Marijuana - Past Family History Father Additional Family Medical History / Comment(s): Pt has not kept in close contact with his father for many yrs. Father was an alcoholic and pt believes he has from cirrhosis of the liver. Mother History Unknown: Yes Additional Family Medical History / Comment(s): Pt is not in contact with his mother or his father who he has heard had . Medications and Allergies Home Medications Medication Instructions Recorded Confirmed Type Albuterol Inhaler [Ventolin Hfa 2 puff INHALATION RT-QID PRN 07/06/22 08/22/23 History Inhaler] SILVER sulfADIAZINE CREAM 1 applic TOPICAL SUWEFR 06/04/23 08/22/23 History [Silvadene Cream] Acetaminophen Tab [Tylenol] 650 mg PO Q6HR PRN tab 07/02/23 08/22/23 Rx DULoxetine HCL [Cymbalta] 30 mg PO DAILY cap 07/02/23 08/22/23 Rx Folic Acid 1 mg PO DAILY tab 07/02/23 08/22/23 Rx Ipratropium-Albuterol Nebulize 3 ml INHALATION RT-QID each 07/02/23 08/22/23 Rx [Duoneb 0.5 mg-3 mg/3 ml Soln] Lactulose [Cephulac] 20 gm PO DAILY PRN ml 07/02/23 08/22/23 Rx Thiamine [Vitamin B-1] 100 mg PO DAILY #30 tablet 07/02/23 08/22/23 Rx fluPHENAZine [Prolixin] 3 mg PO HS tab 07/02/23 08/22/23 Rx Aspirin 81 mg PO DAILY 07/04/23 08/22/23 History Famotidine [Pepcid] 20 mg PO DAILY 07/04/23 08/22/23 History Insulin Glargine,Hum.rec.anlog 28 units SQ HS 07/04/23 08/22/23 History [Toujeo Solostar] Metoprolol Tartrate [Lopressor] 25 mg PO BID 07/04/23 08/22/23 History Midodrine HCl [ProAmatine] 10 mg PO TID@0730,1100,1600 07/04/23 08/22/23 History Multivitamins, Thera [Multivitamin 1 tab PO DAILY 07/04/23 08/22/23 History (formulary)] Torsemide [Soaanz] 40 mg PO SUMOWEFR@0700 07/04/23 08/22/23 History Torsemide [Soaanz] 40 mg PO TUTHSA@1000 07/04/23 08/22/23 History Ascorbic Acid [Vitamin C] 1,000 mg PO DAILY tab 07/09/23 08/22/23 Rx INSULIN ASPART (NovoLOG) [NovoLOG See Protocol SQ ACHS 07/20/23 08/22/23 History (formulary)] ALPRAZolam [Xanax] 0.5 mg PO Q8H PRN 08/22/23 08/22/23 History Amiodarone [Cordarone] 200 mg PO DAILY 08/22/23 08/22/23 History HYDROcodone/APAP 5-325MG [[place] 1 tab PO Q8HR 08/22/23 08/22/23 History 5-325] traZODone HCL [Desyrel] 50 mg PO HS PRN 08/22/23 08/22/23 History Allergies Allergy/AdvReac Type Severity Reaction Status Date / Time azithromycin Allergy Anaphylaxis Verified 08/22/23 08:29 gemfibrozil [From Lopid] Allergy Rash/Hives Verified 08/22/23 08:29 Physical Exam Vitals: Vital Signs Temp Pulse Resp BP Pulse Ox FiO2 09/01/23 12:15 110 H 28 H 91/62 96 09/01/23 12:00 99.9 F H 112 H 30 H 96/63 93 L 40 09/01/23 11:45 113 H 29 H 93 L 09/01/23 11:30 113 H 30 H 92 L 09/01/23 11:15 113 H 32 H 92 L 09/01/23 11:12 40 09/01/23 11:00 114 H 28 H 93 L 09/01/23 10:45 115 H 29 H 92 L 09/01/23 10:30 117 H 29 H 95 09/01/23 10:15 118 H 31 H 88/68 95 09/01/23 10:00 117 H 33 H 95 09/01/23 09:45 118 H 33 H 99/69 96 09/01/23 09:30 100.8 F H 117 H 28 H 91 L 09/01/23 09:15 118 H 35 H 90 L 09/01/23 09:00 121 H 33 H 89 L 09/01/23 08:45 121 H 32 H 98/67 89 L 09/01/23 08:30 121 H 30 H 96 09/01/23 08:15 122 H 34 H 102/70 95 09/01/23 08:00 102.5 F H 121 H 34 H 96 40 09/01/23 07:45 123 H 34 H 98/71 77 L 09/01/23 07:35 121 H 09/01/23 07:34 40 09/01/23 07:30 120 H 29 H 96 09/01/23 07:15 121 H 33 H 95 09/01/23 07:00 120 H 35 H 98/74 97 09/01/23 06:45 121 H 28 H 98/74 97 09/01/23 06:30 120 H 37 H 103/73 98 09/01/23 06:15 122 H 29 H 103/73 99 09/01/23 06:00 100.9 F H 123 H 35 H 96/70 97 50 09/01/23 05:45 121 H 32 H 96/70 97 09/01/23 05:30 122 H 34 H 96/68 100 50 09/01/23 05:15 122 H 35 H 96/68 99 09/01/23 05:00 122 H 34 H 99/69 100 09/01/23 04:45 123 H 40 H 99/69 100 09/01/23 04:30 123 H 27 H 100/69 100 09/01/23 04:15 123 H 31 H 100/69 93 L 09/01/23 04:00 101.6 F H 124 H 41 H 97/70 92 L 50 09/01/23 03:45 124 H 31 H 97/70 94 L 09/01/23 03:43 124 H 09/01/23 03:34 124 H 40 09/01/23 03:30 124 H 31 H 98/71 99 09/01/23 03:15 124 H 31 H 98/71 99 09/01/23 03:00 125 H 43 H 100/67 100 50 09/01/23 02:45 124 H 33 H 100/67 99 09/01/23 02:30 124 H 33 H 101/68 99 09/01/23 02:15 102.8 F H 125 H 37 H 101/68 97 09/01/23 02:00 125 H 34 H 99/69 96 09/01/23 01:45 124 H 30 H 99/69 95 09/01/23 01:30 126 H 39 H 104/75 50 09/01/23 01:15 126 H 28 H 104/75 87 L 09/01/23 01:00 28 H 105/67 95 09/01/23 00:56 126 H 09/01/23 00:46 124 H 40 09/01/23 00:45 124 H 42 H 105/67 97 09/01/23 00:30 121 H 37 H 102/69 97 09/01/23 00:15 121 H 33 H 102/69 97 09/01/23 00:00 103 F H 120 H 41 H 102/69 97 50 08/31/23 23:45 121 H 62 H 102/69 97 08/31/23 23:30 118 H 44 H 101/65 97 08/31/23 23:15 122 H 50 H 101/65 97 08/31/23 23:00 123 H 45 H 101/69 96 08/31/23 22:45 123 H 40 H 101/69 96 08/31/23 22:39 124 H 38 H 101/69 96 08/31/23 22:30 124 H 38 H 104/70 96 08/31/23 22:15 125 H 38 H 104/70 96 08/31/23 22:00 126 H 49 H 104/70 96 50 08/31/23 21:45 128 H 43 H 105/66 96 08/31/23 21:30 128 H 40 H 101/68 96 08/31/23 21:15 126 H 46 H 101/68 96 08/31/23 21:00 103 F H 128 H 31 H 102/68 96 50 08/31/23 20:45 126 H 32 H 102/68 96 08/31/23 20:30 126 H 36 H 105/71 96 08/31/23 20:15 126 H 38 H 105/71 97 08/31/23 20:11 125 H 08/31/23 20:00 102.4 F H 126 H 42 H 103/68 96 50 08/31/23 19:54 123 H 40 08/31/23 19:45 125 H 34 H 103/68 96 08/31/23 19:30 123 H 31 H 101/67 95 08/31/23 19:15 123 H 25 H 101/67 95 08/31/23 19:00 123 H 33 H 94 L 08/31/23 18:45 123 H 29 H 102/67 94 L 08/31/23 18:30 115 H 29 H 97 08/31/23 18:15 115 H 30 H 103/70 98 08/31/23 18:00 115 H 31 H 97 08/31/23 17:45 118 H 32 H 99 08/31/23 17:30 116 H 28 H 97 08/31/23 17:15 111 H 29 H 103/69 98 08/31/23 17:00 109 H 31 H 97 08/31/23 16:45 112 H 31 H 97 08/31/23 16:30 106 H 28 H 97 08/31/23 16:15 109 H 28 H 93/63 98 08/31/23 16:00 99.1 F 107 H 28 H 91/66 96 40 08/31/23 15:45 109 H 28 H 93/64 99 50 08/31/23 15:41 106 H 08/31/23 15:34 40 08/31/23 15:32 108 H 02/03/24 15:30 106 H 30 H 98 08/31/23 15:15 109 H 28 H 91/77 99 08/31/23 15:00 109 H 28 H 98 08/31/23 14:45 109 H 28 H 99 08/31/23 14:30 111 H 30 H 99 08/31/23 14:15 111 H 28 H 95/66 97 08/31/23 14:00 112 H 28 H 100/65 98 08/31/23 13:45 111 H 28 H 9765 99 Intake and Output 08/31/23 09/01/23 09/01/23 22:59 06:59 14:59 Intake Total 505.500 342.186 8411.362 Output Total 0 0 0 Balance 505.500 168.378 7669.362 Intake: IV 24 24 18 .9 3cc/hr A-line 24 24 18 Intake, IV Titration 275.500 273.695 8030.362 Amount Acyclovir Sodium 900 mg 250 In Sodium Chloride 0.9% 250 ml @ 268 mls/hr IVPB Q12HR LAN Rx#:[id number] Cefepime 2 gm In Sodium 100 Chloride 0.9% 100 ml @ 25 mls/hr IVPB Q12HR LAN Rx #:[id number] Norepinephrine 8 mg In 101.25 268.53 146.220 Sodium Chloride 0.9% 250 ml @ 0.03 MCG/KG/MIN 5. 207 mls/hr IV .Q24H LAN Rx#:[id number] Vancomycin 1,500 mg In 500 Sodium Chloride 0.9% 500 ml 500 ml @ 167 mls/hr IVPB Q24H ALN Rx#: [id number] cefTRIAXone 2 gm In 50 Sodium Chloride 0.9% 50 ml @ 100 mls/hr IVPB Q12HR LAN Rx#:[id number] propofoL 1,000 mg In 74.250 118.355 65.142 Empty Bag 1 bag @ 15 MCG/ KG/MIN 8.91 mls/hr IV . [id number] LAN Rx#:[id number] Tube Feeding 156 312 78 Other 50 60 Output: Urine 0 0 0 Other: Weight 91.5 kg ABP, PAP, CO, CI - Last 8 Hours Arterial Blood Pressure 95/39 Arterial Blood Pressure 89/47 Arterial Blood Pressure 88/47 Arterial Blood Pressure 86/48 Arterial Blood Pressure 89/50 Arterial Blood Pressure 88/50 Arterial Blood Pressure 88/50 Arterial Blood Pressure 93/53 Arterial Blood Pressure 96/55 Arterial Blood Pressure 97/55 Arterial Blood Pressure 91/57 Arterial Blood Pressure 85/50 Arterial Blood Pressure 98/55 Arterial Blood Pressure 93/55 Arterial Blood Pressure 95/55 Arterial Blood Pressure 93/54 Arterial Blood Pressure 93/54 Arterial Blood Pressure 94/54 Arterial Blood Pressure 82/55 Arterial Blood Pressure 94/53 Arterial Blood Pressure 94/55 Arterial Blood Pressure 95/55 Arterial Blood Pressure 95/56 Arterial Blood Pressure 99/57 Arterial Blood Pressure 101/56 Arterial Blood Pressure 101/59 Arterial Blood Pressure 94/56 Results CBC & Chem 7: 09/01/23 04:30 09/01/23 22:05 Labs: Abnormal Lab Results - Last 24 Hours (Table) 08/31/23 08/31/23 08/31/23 Range/Units 16:21 16:21 17:21 WBC (3.8-10.6) k/uL RBC (4.30-5.90) m/uL Hgb (13.0-17.5) gm/dL Hct (39.0-53.0) % MCHC (31.0-37.0) g/dL RDW (11.5-15.5) % Neutrophils # (1.3-7.7) k/uL Monocytes # (0-1.0) k/uL ABG pO2 (83-108) mmHg ABG Total CO2 (19-24) mmol/L Sodium (137-145) mmol/L BUN (9-20) mg/dL Creatinine (0.66-1.25) mg/dL Glucose (74-99) mg/dL POC Glucose (mg/dL) 178 H (70-110) mg/dL Ammonia 32 H (<30) umol/L Vitamin B12 1434.0 H (200.0-944.0) pg/mL 09/01/23 09/01/23 09/01/23 Range/Units 02: 04:30 04:30 WBC 31.9 H (3.8-10.6) k/uL RBC 3.76 L (4.30-5.90) m/uL Hgb 10.4 L (13.0-17.5) gm/dL Hct 34.9 L (39.0-53.0) % MCHC 29.8 L (31.0-37.0) g/dL RDW 16.8 H (11.5-15.5) % Neutrophils # 28.6 H (1.3-7.7) k/uL Monocytes # 1.2 H (0-1.0) k/uL ABG pO2 (83-108) mmHg ABG Total CO2 (19-24) mmol/L Sodium 133 L (137-145) mmol/L BUN 46 H (9-20) mg/dL Creatinine 2.57 H (0.66-1.25) mg/dL Glucose 274 H (74-99) mg/dL POC Glucose (mg/dL) 257 H (70-110) mg/dL Ammonia (<30) umol/L Vitamin B12 (200.0-944.0) pg/mL 09/01/23 09/01/23 09/01/23 Range/Units 06:10 06:35 11:22 WBC (3.8-10.6) k/uL RBC (4.30-5.90) m/uL Hgb (13.0-17.5) gm/dL Hct (39.0-53.0) % MCHC (31.0-37.0) g/dL RDW (11.5-15.5) % Neutrophils # (1.3-7.7) k/uL Monocytes # (0-1.0) k/uL ABG pO2 70 L (83-108) mmHg ABG Total CO2 26 H (19-24) mmol/L Sodium (137-145) mmol/L BUN (9-20) mg/dL Creatinine (0.66-1.25) mg/dL Glucose (74-99) mg/dL POC Glucose (mg/dL) 235 H 293 H (70-110) mg/dL Ammonia (<30) umol/L Vitamin B12 (200.0-944.0) pg/mL Microbiology - Last 24 Hours (Table) 08/28/23 22:30 Blood Culture - Preliminary Blood 08/28/23 21:50 Blood Culture - Preliminary Blood 08/29/23 01:17 Gram Stain - Final Sputum Sputum Culture - Final Staphylococcus aureus Moraxella(branhamella) catarra Assessment and Plan Plan: 1patient with sepsis in this patient who did have a fever tachycardia elevated white count and hypotension requiring pressor support high clinical suspicious possible for pneumonia to be the likely etiology clinic suspicious low for [employer] infection but not entirely excluded 2-patient is growing MSSA and Moraxella in his sputum and is covered with the current antibiotic therapy 3-await LP CSF should be sent for cell count differential glucose protein Gram stain and culture 4-blood cultures will be followed Prognosis guarded We will follow on clinical condition and cultures to further adjust medication if needed Thank you for this consultation we will follow the patient along with you Dictation was produced using [employer] dictation software. please excuse any grammatical, word or spelling errors. Time with Patient: Greater than 30
[2023-09-01] MEDS: VASOPRESSIN 60 UNIT in SODIUM CHLORIDE 0.9% 150 ML IV SCH (23:12)
[2023-09-02 00:49] LABS: Glucose,Whole Blood 273 mg/dL (70-110)
[2023-09-02 04:39] LABS: Anisocytosis Slight; Basophils # (A) 0.1 k/uL (0-0.2); Basophils % (A) 0 %; Eosinophils % (A) 0 %; HGB 10.4 gm/dL (13.0-17.5); Hypochromasia Marked; Lymphocytes # (A) 1.2 k/uL (1.0-4.8); Lymphocytes % (A) 4 %; MCH 27.4 pg (25.0-35.0); MCHC 29.8 g/dL (31.0-37.0); MCV 91.8 fL (80.0-100.0); Monocytes # (A) 1.3 k/uL (0-1.0); Monocytes % (A) 4 %; Neutrophils % (A) 90 %; Platelet Count 254 k/uL (150-450); RBC 3.82 m/uL (4.30-5.90); RDW 16.8 % (11.5-15.5); WBC 33.3 k/uL (3.8-10.6)
[2023-09-02 04:49] LABS: African American GFR (CKD) 22 (>60 ml/min/1.73 sqM); Anion Gap 9 mmol/L; Blood Urea Nitrogen 68 mg/dL (9-20); Calcium 8.6 mg/dL (8.4-10.2); Carbon Dioxide 19 mmol/L (22-30); Chloride 103 mmol/L (98-107); Glucose 304 mg/dL (74-99); Non-African American GFR(CKD) 19 (>60 ml/min/1.73 sqM); Potassium 5.7 mmol/L (3.5-5.1); Sodium 131 mmol/L (137-145)
[2023-09-02 04:51] LABS: ABG Base Excess -4.6 mmol/L; ABG HCO3 21 mmol/L (21-25); ABG Oxygen Saturation 91.2 % (94-97); ABG PCO2 41 mmHg (35-45); ABG PH 7.33 (7.35-7.45); ABG PO2 64 mmHg (83-108); ABG TCO2 23 mmol/L (19-24)
[2023-09-02 05:18] LABS: Allen Test Performed? no
[2023-09-02 05:46] LABS: Glucose,Whole Blood 278 mg/dL (70-110)
--- NOTE | 2023-09-02 07:56 | XR ---
EXAMINATION TYPE: XR chest 1V portable DATE OF EXAM: 09/02/2023 COMPARISON: 09/01/2023 HISTORY: Shortness of breath TECHNIQUE: Single frontal view of the chest is obtained. FINDINGS: ET tube, NG tube, cardiac device and dialysis catheter stable. Bilateral consolidation ple ural effusion stable. No sizable pneumothorax. Left-sided central line stable. Osseous structures sta ble. IMPRESSION: Stable bilateral pleural-parenchymal changes correlate for CHF versus pneumonia.
--- NOTE | 2023-09-02 08:56 | P.PN ---
Subjective Progress Note Date: 09/02/23 53-year-old male patient being seen in follow-up. Note that the patient has multiple medical problems and comorbidities. He has lower extremity wounds followed by vascular surgery and infectious disease and is on diabetic foot ulcers. He has had multiple admissions in the past and he finally agreed on the manipulation of the right foot there was not healing. The surgery was done on 08/26/2022. He was discharged home to be readmitted for progressive shortness of breath and subsequently went to respiratory failure. Patient for remains intubated on the mechanical ventilator. Patient is post acute hypoxic/hypercapnic respiratory failure and the patient was intubated 08/18/2023. Patient had an extensive number of comorbid conditions. Patient is known to have COPD, coronary disease and history of ischemic cardiomyopathy and the patient has an ejection fraction of 20% and is a AICD in place. The patient also developed chronic kidney disease secondary to diabetic nephropathy and due to his massive fluid overload, the patient was initiated on hemodialysis and the patient had an acute kidney injury, with stage III kidney disease. He is known to have also moderate to severe mitral regurgitation along with moderate degree of tricuspid regurgitation severe pulmonary hypertension, hypertension, obstructive sleep apnea, peripheral vascular disease, recent right above-knee amputation secondary to a infected right heel diabetic ulcer. At this point in time, the patient remains intubated and mechanically ventilated. Patient is sedated on propofol running at 20 mcg/kg/min. Patient remains on assist-control mode of mechanical ventilation with a rate of 28, tidal volume 450, FiO2 of 40% with a PEEP of 5. He remains poorly responsive. CAT scan of the brain was done that showed no acute abnormalities and EEG was also completed. He is undergoing daily sedation interruptions and he has been very poorly responsive. Sputum was positive for Staph aureus and Moraxella catarrhalis. He is also right-sided pleural effusion drainage and this was done on 08/24/2023. Patient with has an elevated LDH level of 342 with a total protein level of 2.8. The chest x-rays showing extensive consolidation in the right midlung area/right lower lobe. There is also evidence of a right-sided pleural effusion and bibasilar pulmonary infiltrates. Orotracheal tube is in adequate location. The patient has a temporary dialysis catheter, a permacath in his right IJ. Also has an AICD over his left anterior chest area. He subclavian triple-lumen cath is also seen in his left side. The blood gas from today shows a pH of 7.33 with a pCO2 of 41 and pO2 of 64. BUN is at 68 with a creatinine of 3.47 and a sodium level is at 131. Potassium levels at 5.7. The white cell count at 33 which remains quite elevated for the past several days. Hemoglobin is at 10.4 with a platelet count of 254. His sputum sample is showing staph aureus and Moraxella catarrhalis. His staph aureus is an MSSA organism. He also has a gram-negative bacillus in the urine and the final cultures are still pending for now. As for the blood cultures, the patient is showing gram-positive cocci in clusters on 1 out of 2 blood cultures that were obtained on 08/31/2023. The patient is currently on IV Unasyn. The patient is also on IV Rocephin. Is also on vancomycin. Hemodynamically, he is hypotensive. Most recent BP is 80 power 56. He remains on pressors and norepinephrine is running at 0.17 mcg/kg/m this morning. The patient is also on vasopressin at 0.03 units an hour. He is sedated with propofol running at 30 mcg/kg/m. In terms of his mental status, the patient's completely unresponsive, nonresponsive to painful stimulation. A lumbar puncture was ordered and this is to be done today. CAT scan of the brain that was done on 08/31/2023 showed age-related atrophy without any acute abnormalities. EEG results are pending for now. Objective - Vital Signs Vital signs: Vital Signs Temp 103.2 F H 09/02/23 07:47 Pulse 128 H 09/02/23 08:37 Resp 31 H 09/02/23 08:37 BP 92/66 09/02/23 06:00 Pulse Ox 94 L 09/02/23 07:00 FiO2 40 09/02/23 08:35 Intake & Output 09/01/23 09/02/23 09/02/23 18:59 06:59 18:59 Intake Total 8152.665 0771.707 202.517 Output Total 0 3 0 Balance 5136.088 1176.707 202.517 Weight 100.1 kg Intake: IV 33 806 23 .9 20 220 20 .9 3cc/hr A-line 33 36 3 Acyclovir Sodium 900 mg 250 In Sodium Chloride 0.9% 250 ml @ 268 mls/hr IVPB Q12HR LAN Rx#:[id number] Ampicillin 2,000 mg In 200 Sodium Chloride 0.9% 100 ml @ 200 mls/hr IVPB Q8HR LAN Rx#:[id number] cefTRIAXone 2 gm In 100 Sodium Chloride 0.9% 50 ml @ 100 mls/hr IVPB Q12HR LAN Rx#:[id number] Intake, IV Titration 1203.054 566.707 179.517 Amount Acyclovir Sodium 900 mg 250 In Sodium Chloride 0.9% 250 ml @ 268 mls/hr IVPB Q12HR LAN Rx#:[id number] Ampicillin 2,000 mg In 100 Sodium Chloride 0.9% 100 ml @ 200 mls/hr IVPB Q8HR LAN Rx#:[id number] Norepinephrine 8 mg In 222.765 449.391 142.095 Sodium Chloride 0.9% 250 ml @ 0.03 MCG/KG/MIN 5. 207 mls/hr IV .Q24H LAN Rx#:[id number] Vancomycin 1,500 mg In 500 Sodium Chloride 0.9% 500 ml 500 ml @ 167 mls/hr IVPB Q24H LAN Rx#: [id number] cefTRIAXone 2 gm In 50 Sodium Chloride 0.9% 50 ml @ 100 mls/hr IVPB Q12HR LAN Rx#:[id number] propofoL 1,000 mg In 80.289 117.316 37.422 Empty Bag 1 bag @ 15 MCG/ KG/MIN 8.91 mls/hr IV . [id number] LAN Rx#:[id number] Tube Feeding 156 273 Other 60 Output: Urine 0 3 0 ABP, PAP, CO, CI - Last Documented Arterial Blood Pressure 97/60 - Exam General appearance the patient is intubated, sedated, calm comfortable, no acute distress head exam was generally normal. There was no scleral icterus or corneal arcus. Mucous membranes were moist. Neck was supple and without jugular venous distension, thyromegaly, or carotid bruits. Carotids were easily palpable bilaterally. There was no adenopathy. The patient has a left AV and triple-lumen catheter in place. Orogastric endotra cheal tube are both in place. The patient also has a right IJ permacath. Lung sounds diminished bilaterally otherwise clear. Breath sounds are equal and symmetrical. Cardiac exam revealed the PMI to be normally situated and sized. The rhythm was regular and no extrasystoles were noted during several minutes of auscultation. The first and second heart sounds were normal and physiologic splitting of the second heart sound was noted. There were no murmurs, rubs, clicks, or gallops. Abdominal exam revealed normal bowel sounds. The abdomen was soft, non-tender, and without masses, organomegaly, or appreciable enlargement of the abdominal aorta. Extremities reveal a right above-knee amputation. Skin is mottled. Pulses are diminished in all 4 extremities. He has a left radial arterial line. The chronic wound is also present on his left christine and his toes. Neurologically, the patient is sedated and the patient is calm and comfortable. 6 is a mechanical ventilator. The patient does not withdraw to painful stimulation. Pupils are equally reactive to light. Neurologic exam is nonfocal. - Labs CBC & Chem 7: 09/02/23 04:18 09/02/23 04:18 Labs: Abnormal Lab Results - Last 24 Hours (Table) 09/01/23 09/01/23 09/02/23 Range/Units 11:22 18:06 00:47 WBC (3.8-10.6) k/uL RBC (4.30-5.90) m/uL Hgb (13.0-17.5) gm/dL Hct (39.0-53.0) % MCHC (31.0-37.0) g/dL RDW (11.5-15.5) % Neutrophils # (1.3-7.7) k/uL Monocytes # (0-1.0) k/uL ABG pH (7.35-7.45) ABG pO2 (83-108) mmHg ABG O2 Saturation (94-97) % Sodium (137-145) mmol/L Potassium (3.5-5.1) mmol/L Carbon Dioxide (22-30) mmol/L BUN (9-20) mg/dL Creatinine (0.66-1.25) mg/dL Glucose (74-99) mg/dL POC Glucose (mg/dL) 293 H 298 H 273 H (70-110) mg/dL 09/02/23 09/02/23 09/02/23 Range/Units 04:18 04:18 04:50 WBC 33.3 H (3.8-10.6) k/uL RBC 3.82 L (4.30-5.90) m/uL Hgb 10.4 L (13.0-17.5) gm/dL Hct 35.0 L (39.0-53.0) % MCHC 29.8 L (31.0-37.0) g/dL RDW 16.8 H (11.5-15.5) % Neutrophils # 30.0 H (1.3-7.7) k/uL Monocytes # 1.3 H (0-1.0) k/uL ABG pH 7.33 L (7.35-7.45) ABG pO2 64 L (83-108) mmHg ABG O2 Saturation 91.2 L (94-97) % Sodium 131 L (137-145) mmol/L Potassium 5.7 H (3.5-5.1) mmol/L Carbon Dioxide 19 L (22-30) mmol/L BUN 68 H (9-20) mg/dL Creatinine 3.47 H (0.66-1.25) mg/dL Glucose 304 H (74-99) mg/dL POC Glucose (mg/dL) (70-110) mg/dL 09/02/23 Range/Units 05:45 WBC (3.8-10.6) k/uL RBC (4.30-5.90) m/uL Hgb (13.0-17.5) gm/dL Hct (39.0-53.0) % MCHC (31.0-37.0) g/dL RDW (11.5-15.5) % Neutrophils # (1.3-7.7) k/uL Monocytes # (0-1.0) k/uL ABG pH (7.35-7.45) ABG pO2 (83-108) mmHg ABG O2 Saturation (94-97) % Sodium (137-145) mmol/L Potassium (3.5-5.1) mmol/L Carbon Dioxide (22-30) mmol/L BUN (9-20) mg/dL Creatinine (0.66-1.25) mg/dL Glucose (74-99) mg/dL POC Glucose (mg/dL) 278 H (70-110) mg/dL Microbiology - Last 24 Hours (Table) 08/31/23 15:25 Blood Culture - Preliminary Blood 08/31/23 15:45 Blood Culture Gram Stain - Preliminary Blood 08/28/23 22:30 Blood Culture - Preliminary Blood 08/28/23 21:50 Blood Culture - Preliminary Blood Assessment and Plan Plan: Acute on chronic hypoxic respiratory failure/hypercapnic respiratory failure, intubated and mechanically ventilated and the patient has been intubated since 08/28/2023. The patient has extensive infiltration of the right lung involving the right middle and right lower lobe and bilateral lower lobe consolidations and small effusions. Chest x-ray was noted from today. Blood gas was noted. The sputum sample showing staph aureus, MSSA and Moraxella catarrhalis. The patient is currently on a combination of antibiotics including Unasyn and vancomycin and Rocephin Coagulase-negative staph in the blood, likely contaminant 1 out of 2 blood cultures. Currently on vancomycin. Shock, profoundly hypotensive currently on a combination of norepinephrine and vasopressin. Blood pressure is running at 0.17 mcg/kg/m. He does have also severe cardiomyopathy. LV function. Encephalopathy, multifactorial predominantly due to sepsis in addition to a component of metabolic encephalopathy. At this point the patient is sedated with propofol. CAT scan of the brain showed [employer] atrophy, no acute abnormalities Ischemic cardiomyopathy with an ejection fraction of 20% Acute on chronic heart failure Acute on chronic stage III kidney disease and the patient is undergoing hemodialysis for signs of fluid overload, last hemodialysis was on 08/31/2023 History of AICD placement Peripheral vascular disease with diabetic foot ulcer Right above-knee amputation for an infected diabetic heel ulcer COPD Diabetes mellitus type 2 Diabetic nephropathy Diabetic neuropathy Moderate to severe mitral regurgitation/tricuspid regurgitation with severe pulmonary hypertension Obstructive sleep apnea Right-sided pleural effusion postthoracentesis done on 08/24/2023 with total evacuation of around 1.2 L of pleural fluid Episodic nonsustained V. tach, currently on amiodarone 1 mg by mouth daily. The patient also has an AICD in place. Plan Continue vent support, ventilator changes for today Continue same antibiotic coverage the patient is currently on a combination of Rocephin, Unasyn and vancomycin. The patient is on a combination pressors and the patient is currently on norepinephrine and vasopressin Hemodialysis today Wean off the propofol and assess his mentation Lumbar puncture today Guardianship is being established Repeat another set of 2 blood cultures Echocardiogram was completed yesterday Continue enteral feeding for nutritional support [employer] on the case regarding his episodes of nonsustained VT We'll continue to follow make further recommendations based on his progress. Prognosis is extremely poor based above-mentioned comorbidities. This evaluation was done in more than 30 minutes. Time with Patient: Greater than 30
[2023-09-02] MEDS ORDERED: ACETAMINOPHEN IV (For NPO) 1,000 MG in EMPTY BAG 1 BAG IVPB PRN (09:24)
[2023-09-02] MEDS ORDERED: HYDROcodone/APAP 5-325MG 1 EACH TAB PO PRN (09:28)
[2023-09-02 09:39] LABS: INR 1.3 (<1.2); Partial Thromboplastin Time 27.4 sec (22.0-30.0); Prothrombin Time 13.8 sec (10.0-12.5)
--- NOTE | 2023-09-02 10:37 | CA ---
Transthoracic Echo Report Name: Ezequiel Haynes Age: 53 Gender: M : 1970 Exam Date: 09/02/2023 08:13 Exam Location: [facility] Ht (in): 69 Wt (lb): 201 Ordering Physician: Saad Steel MD Attending/Referring Phys: Creeler Kena Kwan RDCS Procedure CPT: Indications: rule out vegatation. Cardiac Hx: limited study Technical Quality: Poor Contrast 1: Definity Total Dose (mL): 1 Contrast 2: Total Dose (mL): MEASUREMENTS (Male / Female) Normal Values 2D ECHO RV Internal Dim ED PLAX 3.9 cm LA Systolic Diameter LX 4.3 cm 3.0 - 4.0 / 2.7 - 3.8 cm DOPPLER TR Peak Velocity 328.2 cm/s TR Peak Gradient 43.1 mmHg Right Ventricular Systolic Press 46.2 mmHg FINDINGS Left Ventricle Left ventricular ejection fraction is estimated at 15 to 20%. Global left ventricular hypokinesis. Right Ventricle Right Atrium Left Atrium Moderate left atrial dilatation. Mitral Valve Structurally normal mitral valve. No vegetation noted. Mildly thickened leaflets Aortic Valve Trileaflet aortic valve. No evidence of vegetation Tricuspid Valve Structurally normal tricuspid valve. No evidence of tricuspid valve vegetation. Pulmonic Valve Pulmonic valve not well visualized. Pericardium No pericardial effusion. Aorta CONCLUSIONS 1. Severe global hypokinesis and severely impaired left ventricle systolic function 2. Mild mitral and tricuspid regurgitation 3. No clear evidence of vegetations Previewed by: Dr. Megan Plunkett MD (Electronically Signed) Final Date: 02 September 2023 10:36
[2023-09-02 10:46] VITALS: BMI 32.5
[2023-09-02] MEDS: AMIODARONE 450 MG in DEXTROSE 5% IN WATER 250 ML IV SCH (11:30)
--- NOTE | 2023-09-02 11:42 | PN ---
PROGRESS NOTE SUBJECTIVE: This is a gentleman with a nonischemic cardiomyopathy based on a cardiac cath from 2018. His ejection fraction is in the 15% range. He is here after having missed dialysis, on a ventilator. We are dealing with a combination of congestive heart failure and possible sepsis with tachycardia, but he is in sinus tachycardia. I reviewed the rhythm strips. There are short runs of less than 10-beat PVCs about 3 runs I have seen in the last 24 hours. Plan is to continue amiodarone, which he was getting oral. I will switch him to probably IV at 0.5 mg drip and see how he does for 24 hours. He is still on a ventilator. There is a question of sepsis. No clear-cut organism. Prognosis, he may remain poor. The patient has been noncompliant with dialysis. He is on Levophed and vasopressin. OBJECTIVE: VITAL SIGNS: Blood pressure is in the 90 range with tachycardia. HEART: S1 and S2 heard normally. Tachycardia noted. No significant murmurs. LUNGS: Reveal diminished air entry. ABDOMEN: Soft. LOWER EXTREMITIES: Reveal diminished pulses. CENTRAL NERVOUS SYSTEM: Assessment not performed. Prognosis remains poor. I will try to switch him from p.o. to IV amiodarone. I am not sure how good the absorption is. Discussed my thoughts with the nurse. No family available. Prognosis remains poor. Potassium is actually 5.7. MMODL / IJN: [id number] /
--- NOTE | 2023-09-02 11:52 | P.PCN ---
Date of Procedure: 09/02/23 Preoperative Diagnosis: ALTERED MENTAL STATUS Description of Procedure: Procedure: Lumbar puncture in ICU. Patient on 2 pressors and intubated, sedated. labs reviewed, last dose of lovenox > 24 hours Laid on left lateral position with RN and aid. 21g needle used after cleaning the site. Laminectomy scar visible. one attempt, first pass provided bloody fluid which cleared up. Opening pressure was 40cm h20 and closing pressure was 30cm h20. about 10cc removed and sent for analysis with the RN. bandaid placed after needle removed. Orders placed by ID/Neurology team. Nick Rowe MD. anesthesia.
[2023-09-02 11:58] LABS: Glucose,Whole Blood 287 mg/dL (70-110)
[2023-09-02 12:40] LABS: Glucose,CSF 155 mg/dL (40-70); Total Protein,CSF 74 mg/dL (12-60)
[2023-09-02] MEDS: EPINEPHrine 4 MG in DEXTROSE 5% IN WATER 250 ML IV SCH (13:19)
[2023-09-02 13:59] LABS: Appearance,CSF Clear; CSF Tube Number 4
[2023-09-02 14:06] LABS: Red Blood Cell, CSF Crenated 0 %; Red Blood Cell, CSF Fresh 100 %; Red Blood Cell,CSF 36 u/L (0-10)
[2023-09-02 14:11] LABS: Nucleated Cells, CSF 69 u/L (0-5)
[2023-09-02 14:21] LABS: Diff, Total Cells Cnt, CSF 100; Mononuclear WBC,CSF 19 %; Polynuclear WBC,CSF 81 %
--- NOTE | 2023-09-02 14:44 | P.PN ---
Progress Note - Text Progress Note Date: 09/02/23 Chief Complaint: Short of breath This is a 53-year-old patient, follows with Dr. Rodríguez. Chronic stable medical condition include CHF EF less than 20%, COPD, diabetes mellitus type 2, hypertension, hyperlipidemia, obstructive sleep apnea, anxiety, AICD, lower extremity venous insufficiency. Patient had lower extremity wounds for which she followed with Dr. Kaur from vascular and ID Dr. Abbasi. Multiple admissions. Patient finally agreed to amputation for the right foot wound that was not healing.. Finally on July 26 patient underwent right above-knee amputation by Dr. Kaur from vascular. Patient was discharged to a satellite [facility] facility. Patient had been noncompliant with hemodialysis prior to that admission. Patient presented to our ER after being progressively increasing shortness of breath. He missed his dialysis yesterday. He became increasingly short of breath. Increasing edema. Some cough. Denies any fever and chills. Tired. Nephrology was called. Patient getting 3 L removed with dialysis today. Patient currently a resident of [facility]. Patient received midodrine today before started dialysis August 23: Tolerated breakfast well. 3 L of fluid being removed today. Patient is due for his generator change on August 28. Cardiology consulted and informed. Has edema. August 24: Oral intake good. Diet. Dialysis per nephrology. Right-sided thoracentesis 1156 cc removed. By pulmonary August 25: Tired. Congested chest. Short of breath. Pulse ox 87% on room air. August 26: Slightly less short of breath. To still present. Getting 4 L removed today. Blood pressure running in the 90s. But more awake August 27: Remains short of breath. BiPAP. Easily gets short winded. Getting dialysis again today. About 3 L plan to be removed. Some decrease in edema. Chest x-ray showing significant right-sided pleural effusion. Hopefully patient will benefit from right thoracentesis. We can have a further discussion with him about CODE STATUS in that case. Patient lives with his 20-year-old son. Dr. GIBSON from pulmonary following August 28: Remains on BiPAP. Somewhat lethargic. Did attempt to speak to the patient Yumiko CODE STATUS. I felt he started send no but given his mentation cannot be sure. Did communicate with Dr. GIBSON from pulmonary. Does not feel there is any significant fluid on the right side for thoracentesis. Dialysis today again. 2200 cc removed. Prognosis guarded. Poor oral intake. Right side could also be infiltrate given the elevated white count. Add cefepime August 29: Patient was moved to the ICU yesterday for further respiratory distr ess. Intubated. Patient on IV propofol and Levophed. On ventilator support. Spoke to the nurse to see if he can get the local authorities/progress to contact patient's son and have him come in. Patient's ex- is completely estranged from him. Has no other known family. I discussed with Dr. Mares from nephrology. We both agree that patient's prognosis is very poor. And hospice would be appropriate. August 30: ICU. Remains intubated. FiO2 50 and PEEP of 5. Drips include IV propofol and norepinephrine. Tube feeding through NG tube 30 cc an hour. No family can be tracked down. Temporary guardian hearing scheduled for 09/06/2023 at 8:30 AM.. FiO2 50 and a PEEP of 5. August 31: ICU. Intubated. IV drips include propofol and norepinephrine. Tube feeding through NG tube. Sedated. Hemodialysis today. Febrile. Vancomycin added. Blood cultures, peripherally and through dialysis catheter. September 01: ICU. Remains intubated. Drips include norepinephrine at 0.8 mics and propofol at 15 mcg. Tube feeding at 39 cc an hour. FiO2 40 and PEEP of 5. Sinus rhythm. September 02: ICU. Intubated. FiO2 40 and PEEP of 5. Drips include norepinephrine, vasopressin, propofol. Tube feeding. Spiking high fever. Lumbar puncture being done this afternoon. Patient on acyclovir, IV Unasyn, IV ceftriaxone, IV vancomycin. Urine culture growing Enterococcus and Enterobacter. Sputum growing Moraxella and Staph aureus. Prognosis remains extremely poor. Sinus tachycardia. Some PVCs. Active Medications Acetaminophen (Acetaminophen Tab 325 Mg Tab) 650 mg PO Q6HR PRN PRN Reason: Mild Pain or Fever > 100.5 Last Admin: 09/02/23 08:20 Dose: 650 mg Hydrocodone Bitart/Acetaminophen (Hydrocodone/Apap 5-325mg 1 Each Tab) 1 each PO Q8HR PRN PRN Reason: Fever and/ or Pain Albuterol/Ipratropium (Ipratropium-Albuterol 3 Ml Neb) 3 ml INHALATION RT-Q2H PRN PRN Reason: Shortness Of Breath Or Wheezing Last Admin: 08/25/23 03:36 Dose: 3 ml Albuterol/Ipratropium (Ipratropium-Albuterol 3 Ml Neb) 3 ml INHALATION RT-Q4H [facility] Last Admin: 09/02/23 11:35 Dose: 3 ml Aspirin (Aspirin 81 Mg) 81 mg PO DAILY [facility] Last Admin: 09/02/23 08:24 Dose: Not Given Calcium Acetate (Calcium Acetate 667 Mg Tab) 667 mg PO TID-W/MEALS [facility] Last Admin: 09/02/23 13:21 Dose: 667 mg Calcium Carbonate/Glycine (Calcium Carbonate 500 Mg Chewable) 1,000 mg PO Q4HR PRN PRN Reason: Dyspepsia Chlorhexidine Gluconate (Chlorhexidine Gluconate 15 Ml Cup) 15 ml MUCOUS MEM BID [facility] Last Admin: 09/02/23 08:18 Dose: 15 ml Dextrose/Water (Dextrose 50% Syringe 50 Ml) 25 ml IVP PER PROTOCOL PRN; Protocol PRN Reason: Hypoglycemia Last Admin: 08/25/23 12:36 Dose: 25 ml Dextrose/Water (Dextrose 50% Syringe 50 Ml) 50 ml IVP PER PROTOCOL PRN; Protocol PRN Reason: Hypoglycemia Duloxetine HCl (Duloxetine Hcl 30 Mg Capsule.Dr) 30 mg PO DAILY [facility] Last Admin: 09/02/23 08:22 Dose: 30 mg Famotidine (Famotidine 20 Mg Tab) 20 mg PO DAILY [facility] Last Admin: 09/02/23 08:20 Dose: 20 mg Fluphenazine HCl (Fluphenazine 1 Mg Tab) 3 mg PO HS [facility] Last Admin: 09/01/23 20:47 Dose: 3 mg Propofol 1,000 mg/ IV Solution 100 mls @ 8.91 mls/hr IV .[id number] [facility]; Protocol Last Titration: 09/02/23 12:53 Dose: 20 mcg/kg/min, 11.88 mls/hr Norepinephrine Bitartrate 8 mg (/ Sodium Chloride) 258 mls @ 5.207 mls/hr IV .Q24H [facility]; Protocol Last Titration: 09/02/23 13:30 Dose: 0.5 mcg/kg/min, 86.785 mls/hr Vancomycin HCl 1,500 mg/ (Sodium Chloride) 500 mls @ 167 mls/hr IVPB Q24H [facility]; Protocol Last Admin: 09/02/23 10:00 Dose: 167 mls/hr Ceftriaxone Sodium 2 gm/ (Sodium Chloride) 50 mls @ 100 mls/hr IVPB Q12HR [facility]; Protocol Last Admin: 09/02/23 08:32 Dose: 100 mls/hr Ampicillin Sodium 2,000 mg/ (Sodium Chloride) 100 mls @ 200 mls/hr IVPB Q8HR [facility]; Protocol Last Admin: 09/02/23 08:18 Dose: 200 mls/hr Vasopressin 60 unit/ Sodium (Chloride) 153 mls @ 4.59 mls/hr IV .Q24H [facility]; Protocol Last Admin: 09/01/23 23:12 Dose: 0.03 units/min, 4.59 mls/hr Amiodarone HCl 450 mg/ (Dextrose/Water) 250 mls @ 16.667 mls/hr IV .Q15H [facility]; Protocol Stop: 09/03/23 09:31 Last Admin: 09/02/23 11:30 Dose: 0.5 mg/min, 16.667 mls/hr Acetaminophen 1,000 mg/ IV (Solution) 100 mls @ 400 mls/hr IVPB Q6HR PRN PRN Reason: Mild Pain or Fever >= 100.5 Stop: 09/03/23 06:01 Epinephrine HCl 4 mg/ Dextrose (/Water) 250 mls @ 11.261 mls/hr IV .[id number] ; Protocol Last Titration: 09/02/23 14:35 Dose: 0.18 mcg/kg/min, 67.568 mls/hr Acyclovir Sodium 900 mg/ (Sodium Chloride) 268 mls @ 268 mls/hr IVPB Q24H [facility]; Protocol Insulin Aspart (Insulin Aspart (Novolog) 100 Unit/Ml Vial) 0 unit SQ Q6HR [facility]; Protocol Last Admin: 09/02/23 13:22 Dose: 6 unit Insulin Detemir (Insulin Detemir (Levemir) 100 Unit/Ml Syr) 20 unit SQ HS [facility] Last Admin: 09/01/23 20:35 Dose: 20 unit Lactulose (Lactulose 20 Gm/30 Ml Cup) 20 gm PO DAILY PRN PRN Reason: Constipation Midodrine (Midodrine 5 Mg Tab) 10 mg PO AC-TID [facility] Last Admin: 09/02/23 13:21 Dose: 10 mg Miscellaneous Information (Vancomycin Trough Due 1 Each Misc) 0 each MISCELLANE DIRECTED ONE Stop: 09/03/23 09:01 Multivitamins (Multivitamins, Thera 1 Each Tab) 1 each PO DAILY [facility] Last Admin: 09/02/23 08:21 Dose: 1 each Naloxone HCl (Naloxone 0.4 Mg/Ml 1 Ml Vial) 0.2 mg IV Q2M PRN PRN Reason: Opioid Reversal Nystatin (Nystatin 100,000 Unit/Ml Susp 500,000 Unit/5 Ml Cup) 500,000 unit PO QID [facility]; Protocol Last Admin: 09/02/23 13:29 Dose: 500,000 unit Ondansetron HCl (Ondansetron 4 Mg/2 Ml Vial) 4 mg IVP Q8HR PRN PRN Reason: Nausea And Vomiting Pantoprazole Sodium (Pantoprazole 40 Mg/10 Ml Vial) 40 mg IVP HS [facility] Last Admin: 09/01/23 20:45 Dose: 40 mg Petrolatum (Zinc Oxide Paste (Z-Guard) 1 Applic) 1 applic TOPICAL DAILY PRN; Protocol PRN Reason: Wound Healing Trazodone HCl (Trazodone Hcl 50 Mg Tab) 50 mg PO HS PRN PRN Reason: Agitation Social history: Lives with his 20-year-old son. Disabled. 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 Smoking 2 packs a day for most of his life . Stop drinking heavy alcohol about 20 years ago. Has done marijuana. Physical examination: VITAL SIGNS: 103.2, 128, 31, 97/60, 94% on the ventilator GENERAL: Intubated sedated EYES: Pupils equal. Conjunctiva normal. HEENT: External appearance of nose and ears normal, ET tube NECK: JVD raised; masses not palpable. HEART: First and second heart sounds are normal; significant edema LUNGS: Respiratory rate increased; diminished breath sounds ABDOMEN: Soft, nontender, liver spleen not palpable, no masses palpable. PSYCH: Sedated NEUROLOGICAL: Sedated DERMATOLOGICAL: Right above-knee amputation. Left lower extremity wound INVESTIGATIONS, reviewed in the clinical context: September 02: White count 33.3 hemoglobin 10.4 platelets 254 potassium 5.7 BUN 68 creatinine 3.47 procalcitonin 14.9 CSF: Nucleated cells 69. RBC 36. Glucose 155. CSF total protein 74 Sputum culture [August 29] staff aureus, Moraxella Cattara September 01: White count 31.9 hemoglobin 10.4 platelets 197 potassium 4.8 creatinine 2.57 August 31: White count 37.5 hemoglobin 10.2 potassium 4.4 creatinine 2.57 August 29: White count 41.2 hemoglobin 9.7 platelets 251 potassium 3.8 BUN 34 creatinine 3.09 August 28: White count 24.8 hemoglobin 10 ABG: pH 7.28 pCO2 57 BUN 24 creatinine 2.44 August 27: Sodium 132 potassium 4.3 creatinine 2.92 August 23: White count 13.9 hemoglobin 10.9 platelets 194 potassium 5.2 BUN 62 creatinine 5.09 August 21, 2023: White count 22.8 hemoglobin 11 platelets were 89 sodium 132 potassium 5.4 BUN 83 creatinine 6.21 Troponin I 0.035. proBNP [id number] Influenza type A, type B, RSV, COVID-19: Not detected EKG tracing personally reviewed by me-normal sinus rhythm. Chest x-ray film personally reviewed by me-large right pleural effusion Chest ultrasound: Large right pleural effusion Assessment and plan: -Acute on chronic congestive heart failure nonischemic cardiomyopathy systolic dysfunction EF less than 20%: Worsening from missed hemodialysis.: Slow to respond Hemodialysis-as per nephrology AICD. Fluid restriction 1500 mL. Follow-up with cardiology and nephrology -Severe sepsis: Worsening IV cefepime-changed to ceftriaxone. IV ampicillin IV acyclovir. IV vancomycin ID following Urine culture positive. CSF coming back positive. -Acute uremic and hypoxic encephalopathy: Not improving -Acute hypoxic respiratory failure from fluid overload/CHF.: Not improving On ventilator support since August 28 -Right above-knee amputation by Dr. Yared Lugo on June 2024 Follow-up with Dr. Kaur -Right pleural effusion not felt to be significant. Pulmonary: Following -Possible right basilar pneumonia IV ceftriaxone -Acute COPD exacerbation in a previous smoker Ventolin. DuoNeb-4 times daily. - AICD -Diabetes mellitus type 2 chronically on insulin, uncontrolled with [id number] Increase Levemir 20units subcu Diabetic diet. Accu-Cheks and sliding scale -Iron deficiency anemia aranesp -Hyperlipidemia Lipitor -End-stage kidney disease on hemodialysis Right IJ dialysis catheter -Hyponatremia-mild Fluid restriction -Chronic low back pain. Patient's had pain on and off for about 10 years. Has had prior surgery. Does not remember who did the surgery. When necessary pain medication -Hypotension. Midodrine -Obstructive sleep apnea sometimes uses CPAP machine -Diabetic peripheral neuropathy -Anxiety, depression Trazodone, Cymbalta -DJD Tylenol when necessary -AICD Due for generator change on August 28. Cardiology aware. -Lower extremity chronic venous insufficiency, with left lower extremity wounds Dr. Kaur consulted -Full code -Guardianship: Pending hearing on September 06, 2023. In the probate court. Prognosis remains extremely poor. Multiple antibiotics. Lumbar puncture done. Being followed by multiple consultants. Remains severely septic. Past Medical History Past Medical History: Asthma, Coronary Artery Disease (CAD), Chest Pain / Angina, Heart Failure, COPD, Diabetes Mellitus, GERD/Reflux, Hyperlipidemia, Hypertension, Myocardial Infarction (CA), Pneumonia, Sleep Apnea/CPAP/BIPAP, Supraventricular Tachycardia (SVT) Additional Past Medical History / Comment(s): Ischemic cardiomyopathy, chronic CHF, SVT, IDDM type II, KAMINI with CPAP occasionally used, chronic cervical/back pain, DJD, diabetic foot wounds x 4 months. Dialysis Last Myocardial Infarction Date:: 12/11/17 History of Any Multi-Drug Resistant Organisms: MRSA Date of last positivie culture/infection: 06/15/23 MDRO Source:: Right Foot Past Surgical History: Adenoidectomy, AICD, Back Surgery, Cholecystectomy, EPS, Heart Catheterization, Pacemaker, Tonsillectomy Additional Past Surgical History / Comment(s): 12/10/17 cardiac cath, previous cardiac cath, 09/02/14 AICD/pacer, EGD/colonoscopy, low back surgery with fusion. Past Anesthesia/Blood Transfusion Reactions: Motion Sickness Additional Past Anesthesia/Blood Transfusion Reaction / Comment(s): Pt states he received blood with back surgery without reaction. Type of Cardiac Device: Permanent Pacemaker, AICD Device Placement Date:: 09-02-14 Past Psychological History: ADD/ADHD, Anxiety Smoking Status: Current every day smoker Past Alcohol Use History: Occasional Past Drug Use History: Marijuana
[2023-09-02 16:32] VITALS: BP 87/64; PULSE 129; RESP 28; TEMP 101.6
[2023-09-02] MEDS: AMPICILLIN-SULBACTAM 3 GM in SODIUM CHLORIDE 0.9% 100 ML IVPB SCH (19:05)
--- NOTE | 2023-09-02 20:22 | P.PN ---
Subjective Patient is seen for follow-up for end-stage renal disease. Patient remains on high doses of pressors. Blood pressure remains significantly low and epinephrine will be started. Scheduled for hemodialysis today. Objective - Vital Signs Vital signs: Vital Signs Temp 101.6 F H 09/02/23 12:00 Pulse 129 H 09/02/23 16:00 Resp 28 H 09/02/23 16:00 BP 87/64 09/02/23 11:00 Pulse Ox 93 L 09/02/23 16:00 FiO2 80 09/02/23 16:00 Intake & Output 09/02/23 09/02/23 09/03/23 06:59 18:59 06:59 Intake Total 9187.803 5297.305 Output Total 3 0 Balance 6453.635 6732.305 Weight 100.1 kg 100.1 kg Intake: IV 806 1240 .9 20 220 200 .9 3cc/hr A-line 36 30 Acyclovir Sodium 900 mg 250 250 In Sodium Chloride 0.9% 250 ml @ 268 mls/hr IVPB Q12HR [facility] Rx#:[id number] Ampicillin 2,000 mg In 200 100 Sodium Chloride 0.9% 100 ml @ 200 mls/hr IVPB Q8HR [facility] Rx#:[id number] Invasive Line 6 30 Invasive Line 8 30 Vancomycin 1,500 mg In 500 Sodium Chloride 0.9% 500 ml 500 ml @ 167 mls/hr IVPB Q24H [facility] Rx#: [id number] cefTRIAXone 2 gm In 100 100 Sodium Chloride 0.9% 50 ml @ 100 mls/hr IVPB Q12HR [facility] Rx#:[id number] Intake, IV Titration 566.707 926.305 Amount Amiodarone 450 mg In 95.28 Dextrose 5% in Water 250 ml @ 0.5 MG/MIN 16.667 mls/hr IV .Q15H [facility] Rx#: [id number] EPINEPHrine 4 mg In 47.296 Dextrose 5% in Water 250 ml @ 0.03 MCG/KG/MIN 11. 261 mls/hr IV .[id number] [facility] Rx#:[id number] Norepinephrine 8 mg In 449.391 568.620 Sodium Chloride 0.9% 250 ml @ 0.03 MCG/KG/MIN 5. 207 mls/hr IV .Q24H [facility] Rx#:[id number] Vasopressin 60 unit In 82.697 Sodium Chloride 0.9% 150 ml @ 0.03 UNITS/MIN 4.59 mls/hr IV .Q24H [facility] Rx#: [id number] propofoL 1,000 mg In 117.316 132.412 Empty Bag 1 bag @ 15 MCG/ KG/MIN 8.91 mls/hr IV . [id number] [facility] Rx#:[id number] Tube Feeding 273 146 Other 60 30 Output: Urine 3 0 Other: # Bowel Movements 0 ABP, PAP, CO, CI - Last Documented Arterial Blood Pressure 65/45 - Exam patient updated and remains on the vent Examination of the heart S1 and S2 Examination of the lungs showed bilateral breath sounds heard Abdomen is soft obese Examination of lower extremity shows significant edema 3-4+ bilaterally. Right AKA - Labs CBC & Chem 7: 09/02/23 04:18 09/02/23 04:18 Labs: Abnormal Lab Results - Last 24 Hours (Table) 09/02/23 09/02/23 09/02/23 Range/Units 00:47 04:18 04:18 WBC (3.8-10.6) k/uL RBC (4.30-5.90) m/uL Hgb (13.0-17.5) gm/dL Hct (39.0-53.0) % MCHC (31.0-37.0) g/dL RDW (11.5-15.5) % Neutrophils # (1.3-7.7) k/uL Monocytes # (0-1.0) k/uL PT (10.0-12.5) sec INR (<1.2) ABG pH (7.35-7.45) ABG pO2 (83-108) mmHg ABG O2 Saturation (94-97) % Sodium 131 L (137-145) mmol/L Potassium 5.7 H (3.5-5.1) mmol/L Carbon Dioxide 19 L (22-30) mmol/L BUN 68 H (9-20) mg/dL Creatinine 3.47 H (0.66-1.25) mg/dL Glucose 304 H (74-99) mg/dL POC Glucose (mg/dL) 273 H (70-110) mg/dL Procalcitonin 14.90 H (0.02-0.09) ng/mL CSF RBC (0-10) u/L CSF Tot Nucleated Cells (0-5) u/L CSF Glucose (40-70) mg/dL CSF Total Protein (12-60) mg/dL 09/02/23 09/02/23 09/02/23 Range/Units 04:18 04:50 05:45 WBC 33.3 H (3.8-10.6) k/uL RBC 3.82 L (4.30-5.90) m/uL Hgb 10.4 L (13.0-17.5) gm/dL Hct 35.0 L (39.0-53.0) % MCHC 29.8 L (31.0-37.0) g/dL RDW 16.8 H (11.5-15.5) % Neutrophils # 30.0 H (1.3-7.7) k/uL Monocytes # 1.3 H (0-1.0) k/uL PT (10.0-12.5) sec INR (<1.2) ABG pH 7.33 L (7.35-7.45) ABG pO2 64 L (83-108) mmHg ABG O2 Saturation 91.2 L (94-97) % Sodium (137-145) mmol/L Potassium (3.5-5.1) mmol/L Carbon Dioxide (22-30) mmol/L BUN (9-20) mg/dL Creatinine (0.66-1.25) mg/dL Glucose (74-99) mg/dL POC Glucose (mg/dL) 278 H (70-110) mg/dL Procalcitonin (0.02-0.09) ng/mL CSF RBC (0-10) u/L CSF Tot Nucleated Cells (0-5) u/L CSF Glucose (40-70) mg/dL CSF Total Protein (12-60) mg/dL 09/02/23 09/02/23 09/02/23 Range/Units 07:19 11:40 11:56 WBC (3.8-10.6) k/uL RBC (4.30-5.90) m/uL Hgb (13.0-17.5) gm/dL Hct (39.0-53.0) % MCHC (31.0-37.0) g/dL RDW (11.5-15.5) % Neutrophils # (1.3-7.7) k/uL Monocytes # (0-1.0) k/uL PT 13.8 H (10.0-12.5) sec INR 1.3 H (<1.2) ABG pH (7.35-7.45) ABG pO2 (83-108) mmHg ABG O2 Saturation (94-97) % Sodium (137-145) mmol/L Potassium (3.5-5.1) mmol/L Carbon Dioxide (22-30) mmol/L BUN (9-20) mg/dL Creatinine (0.66-1.25) mg/dL Glucose (74-99) mg/dL POC Glucose (mg/dL) 287 H (70-110) mg/dL Procalcitonin (0.02-0.09) ng/mL CSF RBC 36 H (0-10) u/L CSF Tot Nucleated Cells 69 H* (0-5) u/L CSF Glucose 155 H (40-70) mg/dL CSF Total Protein 74 H (12-60) mg/dL Microbiology - Last 24 Hours (Table) 08/24/23 10:00 Fungal Culture - Preliminary Pleural Fluid 08/24/23 10:00 Acid Fast Bacilli Smear - Preliminary Pleural Fluid Acid Fast Bacilli Culture - Preliminary 08/28/23 15:19 Urine Culture - Preliminary Urine,Voided Enterobacter cloacae Enterococcus faecalis 08/31/23 15:45 Blood Culture Gram Stain - Preliminary Blood Blood Culture - Preliminary Coagulase Negative Staph 08/31/23 15:25 Blood Culture - Preliminary Blood Assessment and Plan Assessment: 1. End-stage renal disease on hemodialysis on a Saturday schedule as outpatient 2. Severe volume overload. 3. Septic shock 4. 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 5. CKD mineral bone disorder 6. Acute hypoxic respiratory failure Plan: Patient is scheduled for hemodialysis today however if he remains significantly hypotensive we will not be dialyzing him. Overall prognosis remains poor.
[2023-09-02] MEDS ORDERED: ACYCLOVIR SODIUM 900 MG in SODIUM CHLORIDE 0.9% 250 ML IVPB SCH (21:00)
--- NOTE | 2023-09-03 08:12 | EEG ---
ELECTROENCEPHALOGRAM REPORT CLINICAL HISTORY: This is a 53-year-old gentleman with altered mental status. The video EEG is obtained to evaluate for seizure epileptiform activity. RELEVANT MEDICATION: IV propofol. EEG TYPE: A routine 21-channel EEG with video using the 10/20 electrode placement system. DESCRIPTION: The patient is intubated on a ventilator. The background consists of [id number] voltage of 5 to 6 hertz nonrhythmic theta activity. At times, the background consists of diffuse nonrhythmic polymorphic delta activity. There was no physiological stage 2 sleep architecture. There is no focal slowing. Interictal and ictal is none. ACTIVATION PROCEDURE: Photic stimulation and hyperventilation are not performed. CLINICAL INTERPRETATION: This is an abnormal routine EEG. The background slowing is suggestive of moderate-to- severe encephalopathy. Otherwise, there is no focal slowing, epileptiform discharges, or seizure on the EEG. Clinical correlation is recommended. MMSONALL / IJN: [id number] /
--- NOTE | 2023-09-03 08:42 | P.PN ---
Subjective Progress Note Date: 09/02/23 Patient initially seen by Dr. Saad Steel. Please refer to his note for details. Patient is a 53-year-old male with altered mental status, likely septic. Patient is on meningeal dose of medication. Initially LP could not be performed because of being on Lovenox. Patient is on chronic hemodialysis. Patient at present is comatose. He is on high-dose pressors including vaso 0.03 units/min, epi 0.5 mcg/kg/min, norepinephrine 0.5 mcg/kg/min, amiodarone, propofol 20 mcg/kg/min. Some of the Workup during his hospital visit consisted of: On initial presentation afebrile but since 08/29/23 has been febrile. Tmax overnight 103.1F During this visit the patient leukocytosis was trended up compared to initial presentation but since the last 3 days it's been trending down. Got as high as 41,000. It's predominantly neutrophilic Sodium is 133, creatinine is 2.57 which is trending down compared to initial presentation on the 08/21/2023. Creatinine is a 41 which is trending up today compared to last couple days. Calcium is 8.7, magnesium is 2.1 Ammonia 32 Serum folate 17.8 Vitamin B12: 1434 TSH: 4.040 AST and ALT is within normal limits Urine analysis seems underlying urinary tract infection with urine white blood cell more than 182, urine white blood cell clumps is many bacteria was few. RSV,HETAL-Covid 2, influenza A and the B, HSV 1 and 2, CMV, adenovirus, parainf luenza, enterovirus are nondetected Urine culture is grame negat bacili and gram stain sputum is staph aureus moraxella catarra CT head: It is reported as age-related atrophic and chronic small vessel ischemic change without acute intracranial process seen at this time. I personally reviewed the CT of the head and the patient has old stroke over the left cerebellum as well as left frontal upon reviewing prior images he had the dose reported strokes that were remote as well on the images in May 2023 Objective - Vital Signs Vital signs: Vital Signs Temp 101.6 F H 09/02/23 12:00 Pulse 129 H 09/02/23 16:00 Resp 28 H 09/02/23 16:00 BP 87/64 09/02/23 11:00 Pulse Ox 93 L 09/02/23 16:00 FiO2 80 09/02/23 16:00 Intake & Output 09/01/23 09/02/23 09/02/23 18:59 06:59 18:59 Intake Total 4025.350 6193.707 1768.060 Output Total 0 3 0 Balance 8283.414 6396.707 1768.060 Weight 100.1 kg 100.1 kg Intake: IV 33 806 1217 .9 20 220 180 .9 3cc/hr A-line 33 36 27 Acyclovir Sodium 900 mg 250 250 In Sodium Chloride 0.9% 250 ml @ 268 mls/hr IVPB Q12HR [facility] Rx#:[id number] Ampicillin 2,000 mg In 200 100 Sodium Chloride 0.9% 100 ml @ 200 mls/hr IVPB Q8HR [facility] Rx#:[id number] Invasive Line 6 30 Invasive Line 8 30 Vancomycin 1,500 mg In 500 Sodium Chloride 0.9% 500 ml 500 ml @ 167 mls/hr IVPB Q24H [facility] Rx#: [id number] cefTRIAXone 2 gm In 100 100 Sodium Chloride 0.9% 50 ml @ 100 mls/hr IVPB Q12HR [facility] Rx#:[id number] Intake, IV Titration 1203.054 566.707 375.060 Amount Acyclovir Sodium 900 mg 250 In Sodium Chloride 0.9% 250 ml @ 268 mls/hr IVPB Q12HR [facility] Rx#:[id number] Ampicillin 2,000 mg In 100 Sodium Chloride 0.9% 100 ml @ 200 mls/hr IVPB Q8HR [facility] Rx#:[id number] EPINEPHrine 4 mg In 47.296 Dextrose 5% in Water 250 ml @ 0.03 MCG/KG/MIN 11. 261 mls/hr IV .[id number] [facility] Rx#:[id number] Norepinephrine 8 mg In 222.765 449.391 246.832 Sodium Chloride 0.9% 250 ml @ 0.03 MCG/KG/MIN 5. 207 mls/hr IV .Q24H [facility] Rx#:[id number] Vancomycin 1,500 mg In 500 Sodium Chloride 0.9% 500 ml 500 ml @ 167 mls/hr IVPB Q24H [facility] Rx#: [id number] cefTRIAXone 2 gm In 50 Sodium Chloride 0.9% 50 ml @ 100 mls/hr IVPB Q12HR [facility] Rx#:[id number] propofoL 1,000 mg In 80.289 117.316 80.932 Empty Bag 1 bag @ 15 MCG/ KG/MIN 8.91 mls/hr IV . [id number] [facility] Rx#:[id number] Tube Feeding 156 273 146 Other 60 30 Output: Urine 0 3 0 Other: # Bowel Movements 0 ABP, PAP, CO, CI - Last Documented Arterial Blood Pressure 65/45 - Exam Patient is comatose. His left pupil is slightly bigger, nonreactive. Patient is critically sick, reflexes are absent. Patient has bruises, peripheral edema. Patient is intubated on mechanical ventilation. Patient not responding to painful stimuli. - Labs CBC & Chem 7: 09/02/23 04:18 09/02/23 04:18 Labs: Abnormal Lab Results - Last 24 Hours (Table) 09/01/23 09/02/23 09/02/23 Range/Units 18:06 00:47 04:18 WBC (3.8-10.6) k/uL RBC (4.30-5.90) m/uL Hgb (13.0-17.5) gm/dL Hct (39.0-53.0) % MCHC (31.0-37.0) g/dL RDW (11.5-15.5) % Neutrophils # (1.3-7.7) k/uL Monocytes # (0-1.0) k/uL PT (10.0-12.5) sec INR (<1.2) ABG pH (7.35-7.45) ABG pO2 (83-108) mmHg ABG O2 Saturation (94-97) % Sodium 131 L (137-145) mmol/L Potassium 5.7 H (3.5-5.1) mmol/L Carbon Dioxide 19 L (22-30) mmol/L BUN 68 H (9-20) mg/dL Creatinine 3.47 H (0.66-1.25) mg/dL Glucose 304 H (74-99) mg/dL POC Glucose (mg/dL) 298 H 273 H (70-110) mg/dL Procalcitonin (0.02-0.09) ng/mL CSF RBC (0-10) u/L CSF Tot Nucleated Cells (0-5) u/L CSF Glucose (40-70) mg/dL CSF Total Protein (12-60) mg/dL 09/02/23 09/02/23 09/02/23 Range/Units 04:18 04:18 04:50 WBC 33.3 H (3.8-10.6) k/uL RBC 3.82 L (4.30-5.90) m/uL Hgb 10.4 L (13.0-17.5) gm/dL Hct 35.0 L (39.0-53.0) % MCHC 29.8 L (31.0-37.0) g/dL RDW 16.8 H (11.5-15.5) % Neutrophils # 30.0 H (1.3-7.7) k/uL Monocytes # 1.3 H (0-1.0) k/uL PT (10.0-12.5) sec INR (<1.2) ABG pH 7.33 L (7.35-7.45) ABG pO2 64 L (83-108) mmHg ABG O2 Saturation 91.2 L (94-97) % Sodium (137-145) mmol/L Potassium (3.5-5.1) mmol/L Carbon Dioxide (22-30) mmol/L BUN (9-20) mg/dL Creatinine (0.66-1.25) mg/dL Glucose (74-99) mg/dL POC Glucose (mg/dL) (70-110) mg/dL Procalcitonin 14.90 H (0.02-0.09) ng/mL CSF RBC (0-10) u/L CSF Tot Nucleated Cells (0-5) u/L CSF Glucose (40-70) mg/dL CSF Total Protein (12-60) mg/dL 09/02/23 09/02/23 09/02/23 Range/Units 05:45 07:19 11:40 WBC (3.8-10.6) k/uL RBC (4.30-5.90) m/uL Hgb (13.0-17.5) gm/dL Hct (39.0-53.0) % MCHC (31.0-37.0) g/dL RDW (11.5-15.5) % Neutrophils # (1.3-7.7) k/uL Monocytes # (0-1.0) k/uL PT 13.8 H (10.0-12.5) sec INR 1.3 H (<1.2) ABG pH (7.35-7.45) ABG pO2 (83-108) mmHg ABG O2 Saturation (94-97) % Sodium (137-145) mmol/L Potassium (3.5-5.1) mmol/L Carbon Dioxide (22-30) mmol/L BUN (9-20) mg/dL Creatinine (0.66-1.25) mg/dL Glucose (74-99) mg/dL POC Glucose (mg/dL) 278 H (70-110) mg/dL Procalcitonin (0.02-0.09) ng/mL CSF RBC 36 H (0-10) u/L CSF Tot Nucleated Cells 69 H* (0-5) u/L CSF Glucose 155 H (40-70) mg/dL CSF Total Protein 74 H (12-60) mg/dL 09/02/23 Range/Units 11:56 WBC (3.8-10.6) k/uL RBC (4.30-5.90) m/uL Hgb (13.0-17.5) gm/dL Hct (39.0-53.0) % MCHC (31.0-37.0) g/dL RDW (11.5-15.5) % Neutrophils # (1.3-7.7) k/uL Monocytes # (0-1.0) k/uL PT (10.0-12.5) sec INR (<1.2) ABG pH (7.35-7.45) ABG pO2 (83-108) mmHg ABG O2 Saturation (94-97) % Sodium (137-145) mmol/L Potassium (3.5-5.1) mmol/L Carbon Dioxide (22-30) mmol/L BUN (9-20) mg/dL Creatinine (0.66-1.25) mg/dL Glucose (74-99) mg/dL POC Glucose (mg/dL) 287 H (70-110) mg/dL Procalcitonin (0.02-0.09) ng/mL CSF RBC (0-10) u/L CSF Tot Nucleated Cells (0-5) u/L CSF Glucose (40-70) mg/dL CSF Total Protein (12-60) mg/dL Microbiology - Last 24 Hours (Table) 08/28/23 15:19 Urine Culture - Preliminary Urine,Voided Enterobacter cloacae Enterococcus faecalis 08/31/23 15:45 Blood Culture Gram Stain - Preliminary Blood Blood Culture - Preliminary Coagulase Negative Staph 08/31/23 15:25 Blood Culture - Preliminary Blood Assessment and Plan Assessment: This is a 53-year-old gentleman with history of chronic kidney insufficiency who presents to the emergency department because shortness of breath, dyspnea on exertion. Seems the patient has missed his dialysis prior to that. Patient has risk medical issues and the is seems the patient the has sepsis. The nurse the patient was following commands yesterday but today even with the house and the patient he was not following commands. Encephalopathy due to multifactorial but predominantly septic from urosepsis (gram neg bacilli) as well as pneumoia (staph aureus moraxella catarra). He also has component of metabolic encephalopathy, ureimic as well as sedation (IV Propofol). Current CT head is negative for acute process. Sepsis shock Acute on chronic kidney insufficiency on dialysis and missed his dialysis. Care chronic systolic congestive heart failure secondary due to fluid overload from this diagnosis Acute hypoxic hypercapnic respiratory failure status post intubation Minimal elevated ammonia 32 (normal <30). Hypothyroidism (TSH 5.77 and free T4 0.72 on 07/30/23) and currently not on medication. But repeat TSH is normal. History of old stroke on left cerebellum and frontal. Ischemic cardiomyopathy with ejection fraction 20% and patient has defibrillator Type 2 diabetes on insulin Moderate to severe mitral regurgitation with moderate tricuspid regurgitation and severe pulmonary hypertension Recent above right the knee amputation secondary due to infected right heel diabetic ulcer Lower extremity venous insufficiency Diabetic perform neuropathy History Hypertension Obstructive sleep apnea Tobacco use Marijuana use Plan: EEG performed 08/31/2023 was abnormal due to background slowing suggestive of moderate to severe encephalopathy. CSF revealed WBC 69 out of which 19% are mononuclear and 81% polynuclear. 36 fresh RBCs. CSF glucose 155, which is normal, total protein 74/60. Patient on vancomycin, ceftriaxone every 12 hours and he also started patient on ampicillin 2 g every 8 hours as well as acyclovir for meningealencephalitis coverage as well. I will defer that antibiotic/antiviral medication modification to I.D. team. Patient is critically sick, on maximum dose of all pressors. Family has made patient no code. Per nursing report, patient probably will not survive in the next 24 hours. Family is on the way. Nephrology, Vascular surgeon are on board Will defer the rest of medical management to primary and other specialist and elementary school tutor. Overall condition is poor. Discussed with nursing staff.
[2023-09-03] MEDS ORDERED: VANCOMYCIN TROUGH DUE 1 EACH MISC MISCELLANE ONE (09:00)
--- NOTE | 2023-09-03 13:07 | P.DS ---
Providers Date of admission: 08/22/23 01:43 Expected date of discharge: 09/02/23 Attending physician: Buck Johnson Consults: 08/22/23 01:40 Consult Physician Urgent Consulting Provider: Nick Mancini Consult Reason/Comments: large right pleural effusion Do you want consulting provider notified?: Yes Consult Physician Urgent Consulting Provider: Kalani Castellanos Consult Reason/Comments: esrd on hd Do you want consulting provider notified?: Already Contacted 08/22/23 12:26 Consult Physician Routine Consulting Provider: Martin Kaur Consult Reason/Comments: postop wound- l leg wounds Do you want consulting provider notified?: Yes 08/22/23 14:04 Consult Physician Routine Consulting Provider: Tomer Jose Consult Reason/Comments: CHF Do you want consulting provider notified?: Yes 08/31/23 11:17 Consult Physician Routine Consulting Provider: Saad Steel Consult Reason/Comments: altered mental status,not following commands Do you want consulting provider notified?: Already Contacted 08/31/23 14:44 Consult Physician Routine Consulting Provider: Yesenia Santoyo Consult Reason/Comments: Sepsis Do you want consulting provider notified?: Yes Primary care physician: [facility] Course: Chief Complaint: Short of breath This is a 53-year-old patient, follows with Dr. Rodríguez. Chronic stable medical condition include CHF EF less than 20%, COPD, diabetes mellitus type 2, hypertension, hyperlipidemia, obstructive sleep apnea, anxiety, AICD, lower extremity venous insufficiency. Patient had lower extremity wounds for which she followed with Dr. Kaur from vascular and ID Dr. Abbasi. Multiple admissions. Patient finally agreed to amputation for the right foot wound that was not healing.. Finally on July 26 patient underwent right above-knee amputation by Dr. Kaur from vascular. Patient was discharged to a [facility] facility. Patient had been noncompliant with hemodialysis prior to that admission. Patient presented to our ER after being progressively increasing shortness of breath. He missed his dialysis yesterday. He became increasingly short of breath. Increasing edema. Some cough. Denies any fever and chills. Tired. Nephrology was called. Patient getting 3 L removed with dialysis today. Patient currently a resident of [facility]. Patient received midodrine today before started dialysis August 23: Tolerated breakfast well. 3 L of fluid being removed today. Patient is due for his generator change on August 28. Cardiology consulted and informed. Has edema. August 24: Oral intake good. Diet. Dialysis per nephrology. Right-sided thoracentesis 1156 cc removed. By pulmonary August 25: Tired. Congested chest. Short of breath. Pulse ox 87% on room air. August 26: Slightly less short of breath. To still present. Getting 4 L removed today. Blood pressure running in the 90s. But more awake August 27: Remains short of breath. BiPAP. Easily gets short winded. Getting dialysis again today. About 3 L plan to be removed. Some decrease in edema. Chest x-ray showing significant right-sided pleural effusion. Hopefully patient will benefit from right thoracentesis. We can have a further discussion with him about CODE STATUS in that case. Patient lives with his 20-year-old son. Dr. STEEL from pulmonary following August 28: Remains on BiPAP. Somewhat lethargic. Did attempt to speak to the patient Yumiko CODE STATUS. I felt he started send no but given his mentation cannot be sure. Did communicate with Dr. STEEL from pulmonary. Does not feel there is any significant fluid on the right side for thoracentesis. Dialysis today again. 2200 cc removed. Prognosis guarded. Poor oral intake. Right side could also be infiltrate given the elevated white count. Add cefepime August 29: Patient was moved to the ICU yesterday for further respiratory distress. Intubated. Patient on IV propofol and Levophed. On ventilator support. Spoke to the nurse to see if he can get the local authorities/progress to contact patient's son and have him come in. Patient's ex- is completely estranged from him. Has no other known family. I discussed with Dr. Mares from nephrology. We both agree that patient's prognosis is very poor. And hospice would be appropriate. August 30: ICU. Remains intubated. FiO2 50 and PEEP of 5. Drips include IV propofol and norepinephrine. Tube feeding through NG tube 30 cc an hour. No family can be tracked down. Temporary guardian hearing scheduled for 09/06/2023 at 8:30 AM.. FiO2 50 and a PEEP of 5. August 31: ICU. Intubated. IV drips include propofol and norepinephrine. Tube feeding through NG tube. Sedated. Hemodialysis today. Febrile. Vancomycin added. Blood cultures, peripherally and through dialysis catheter. September 01: ICU. Remains intubated. Drips include norepinephrine at 0.8 mics and propofol at 15 mcg. Tube feeding at 39 cc an hour. FiO2 40 and PEEP of 5. Sinus rhythm. September 02: ICU. Intubated. FiO2 40 and PEEP of 5. Drips include norepinephrine, vasopressin, propofol. Tube feeding. Spiking high fever. Lumbar puncture being done this afternoon. Patient on acyclovir, IV Unasyn, IV ceftriaxone, IV vancomycin. Urine culture growing Enterococcus and Enterobacter. Sputum growing Moraxella and Staph aureus. Prognosis remains extremely poor. Sinus tachycardia. Some PVCs. No send reminded the manager social responsibility to contact the store worker's office to see if they can track down the family. Finally the son and ex- were reached in the patient's house. They were informed of patient's poor condition made DNR and patient subsequently . Earlier had discussed with Dr. Wyatt. We both agreed that patient is doing extremely poorly. Social history: At [facility] [facility]. Disabled. 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 Smoking 2 packs a day for most of his life . Stop drinking heavy alcohol about 20 years ago. Has done marijuana. INVESTIGATIONS, reviewed in the clinical context: September 02: White count 33.3 hemoglobin 10.4 platelets 254 potassium 5.7 BUN 68 creatinine 3.47 procalcitonin 14.9 CSF: Nucleated cells 69. RBC 36. Glucose 155. CSF total protein 74 Sputum culture [August 29] staff aureus, Moraxella Cattara September 01: White count 31.9 hemoglobin 10.4 platelets 197 potassium 4.8 creatinine 2.57 August 31: White count 37.5 hemoglobin 10.2 potassium 4.4 creatinine 2.57 August 29: White count 41.2 hemoglobin 9.7 platelets 251 potassium 3.8 BUN 34 creatinine 3.09 August 28: White count 24.8 hemoglobin 10 ABG: pH 7.28 pCO2 57 BUN 24 creatinine 2.44 August 27: Sodium 132 potassium 4.3 creatinine 2.92 August 23: White count 13.9 hemoglobin 10.9 platelets 194 potassium 5.2 BUN 62 creatinine 5.09 August 21, 2023: White count 22.8 hemoglobin 11 platelets were 89 sodium 132 potassium 5.4 BUN 83 creatinine 6.21 Troponin I 0.035. proBNP 25082 Influenza type A, type B, RSV, COVID-19: Not detected EKG tracing personally reviewed by me-normal sinus rhythm. Chest x-ray film personally reviewed by me-large right pleural effusion Chest ultrasound: Large right pleural effusion Cause of : COPD Assessment and plan: -Acute on chronic congestive heart failure nonischemic cardiomyopathy systolic dysfunction EF less than 20%: Worsening from missed hemodialysis.: Slow to respond Hemodialysis-as per nephrology AICD. Fluid restriction 1500 mL. Follow-up with cardiology and nephrology -Severe sepsis: Worsening IV cefepime-changed to ceftriaxone. IV ampicillin IV acyclovir. IV vancomycin ID following Urine culture positive. CSF coming back positive. -Acute uremic and hypoxic encephalopathy: Not improving -Acute hypoxic respiratory failure from fluid overload/CHF.: Not improving On ventilator support since August 28 -Right above-knee amputation by Dr. Yared Lugo on June 2024 Follow-up with Dr. Kaur -Right pleural effusion not felt to be significant. Pulmonary: Following -Possible right basilar pneumonia IV ceftriaxone -Acute COPD exacerbation in a previous smoker Ventolin. DuoNeb-4 times daily. - AICD -Diabetes mellitus type 2 chronically on insulin, uncontrolled with [id number] Increase Levemir 20units subcu Diabetic diet. Accu-Cheks and sliding scale -Iron deficiency anemia aranesp -Hyperlipidemia Lipitor -End-stage kidney disease on hemodialysis Right IJ dialysis catheter -Hyponatremia-mild Fluid restriction -Chronic low back pain. Patient's had pain on and off for about 10 years. Has had prior surgery. Does not remember who did the surgery. When necessary pain medication -Hypotension. Midodrine -Obstructive sleep apnea sometimes uses CPAP machine -Diabetic peripheral neuropathy -Anxiety, depression Trazodone, Cymbalta -DJD Tylenol when necessary -AICD Due for generator change on August 28. Cardiology aware. -Lower extremity chronic venous insufficiency, with left lower extremity wounds Dr. Kaur consulted -DNR -Guardianship: Pending hearing on September 06, 2023. In the probate court. Disposition: Patient Past Medical History Past Medical History: Asthma, Coronary Artery Disease (CAD), Chest Pain / Angina, Heart Failure, COPD, Diabetes Mellitus, GERD/Reflux, Hyperlipidemia, Hypertension, Myocardial Infarction (MT), Pneumonia, Sleep Apnea/CPAP/BIPAP, Supraventricular Tachycardia (SVT) Additional Past Medical History / Comment(s): Ischemic cardiomyopathy, chronic CHF, SVT, IDDM type II, KAMINI with CPAP occasionally used, chronic cervical/back pain, DJD, diabetic foot wounds x 4 months. Dialysis Last Myocardial Infarction Date:: 12/11/17 History of Any Multi-Drug Resistant Organisms: MRSA Date of last positivie culture/infection: 06/15/23 MDRO Source:: Right Foot Past Surgical History: Adenoidectomy, AICD, Back Surgery, Cholecystectomy, EPS, Heart Catheterization, Pacemaker, Tonsillectomy Additional Past Surgical History / Comment(s): 12/10/17 cardiac cath, previous cardiac cath, 09/02/14 AICD/pacer, EGD/colonoscopy, low back surgery with fusion. Past Anesthesia/Blood Transfusion Reactions: Motion Sickness Additional Past Anesthesia/Blood Transfusion Reaction / Comment(s): Pt states he received blood with back surgery without reaction. Type of Cardiac Device: Permanent Pacemaker, AICD Device Placement Date:: 09-02-14 Past Psychological History: ADD/ADHD, Anxiety Smoking Status: Current every day smoker Past Alcohol Use History: Occasional Past Drug Use History: Marijuana Patient Condition at Discharge: Serious Plan - Discharge Summary Discharge Rx Participant: No New Discharge Prescriptions: No Action SILVER sulfADIAZINE CREAM [Silvadene Cream] 1 applic TOPICAL SUWEFR Lactulose [Cephulac] 20 gm PO DAILY PRN ml PRN Reason: Constipation DULoxetine HCL [Cymbalta] 30 mg PO DAILY cap Aspirin 81 mg PO DAILY Famotidine [Pepcid] 20 mg PO DAILY Insulin Glargine,Hum.rec.anlog [Trudi Bailey] 28 units SQ HS Midodrine HCl [ProAmatine] 10 mg PO TID@0730,1100,1600 Multivitamins, Thera [Multivitamin (formulary)] 1 tab PO DAILY Amiodarone [Cordarone] 200 mg PO DAILY HYDROcodone/APAP 5-325MG [[place] 5-325] 1 tab PO Q8HR traZODone HCL [Desyrel] 50 mg PO HS PRN PRN Reason: Agitation Albuterol Inhaler [Ventolin Hfa Inhaler] 2 puff INHALATION RT-QID PRN PRN Reason: Shortness Of Breath Ipratropium-Albuterol Nebulize [Duoneb 0.5 mg-3 mg/3 ml Soln] 3 ml INHALATION RT-QID each Folic Acid 1 mg PO DAILY tab fluPHENAZine [Prolixin] 3 mg PO HS tab Acetaminophen Tab [Tylenol] 650 mg PO Q6HR PRN tab PRN Reason: Mild Pain Or Fever > 100.5 Thiamine [Vitamin B-1] 100 mg PO DAILY #30 tablet Metoprolol Tartrate [Lopressor] 25 mg PO BID Torsemide [Soaanz] 40 mg PO TUTHSA@1000 Torsemide [Soaanz] 40 mg PO SUMOWEFR@0700 Ascorbic Acid [Vitamin C] 1,000 mg PO DAILY tab INSULIN ASPART (NovoLOG) [NovoLOG (formulary)] See Protocol SQ ACHS ALPRAZolam [Xanax] 0.5 mg PO Q8H PRN PRN Reason: Anxiety Discharge Medication List Albuterol Inhaler [Ventolin Hfa Inhaler] 2 puff INHALATION RT-QID PRN 07/06/22 [History] SILVER sulfADIAZINE CREAM [Silvadene Cream] 1 applic TOPICAL SUWEFR 06/04/23 [History] Acetaminophen Tab [Tylenol] 650 mg PO Q6HR PRN tab 07/02/23 [Rx] DULoxetine HCL [Cymbalta] 30 mg PO DAILY cap 07/02/23 [Rx] Folic Acid 1 mg PO DAILY tab 07/02/23 [Rx] Ipratropium-Albuterol Nebulize [Duoneb 0.5 mg-3 mg/3 ml Soln] 3 ml INHALATION RT-QID each 07/02/23 [Rx] Lactulose [Cephulac] 20 gm PO DAILY PRN ml 07/02/23 [Rx] Thiamine [Vitamin B-1] 100 mg PO DAILY #30 tablet 07/02/23 [Rx] fluPHENAZine [Prolixin] 3 mg PO HS tab 07/02/23 [Rx] Aspirin 81 mg PO DAILY 07/04/23 [History] Famotidine [Pepcid] 20 mg PO DAILY 07/04/23 [History] Insulin Glargine,Hum.rec.anlog [Toujeo Solostar] 28 units SQ HS 07/04/23 [History] Metoprolol Tartrate [Lopressor] 25 mg PO BID 07/04/23 [History] Midodrine HCl [ProAmatine] 10 mg PO TID@0730,1100,1600 07/04/23 [History] Multivitamins, Thera [Multivitamin (formulary)] 1 tab PO DAILY 07/04/23 [History] Torsemide [Soaanz] 40 mg PO SUMOWEFR@0700 07/04/23 [History] Torsemide [Soaanz] 40 mg PO TUTHSA@1000 07/04/23 [History] Ascorbic Acid [Vitamin C] 1,000 mg PO DAILY tab 07/09/23 [Rx] INSULIN ASPART (NovoLOG) [NovoLOG (formulary)] See Protocol SQ ACHS 07/20/23 [History] ALPRAZolam [Xanax] 0.5 mg PO Q8H PRN 08/22/23 [History] Amiodarone [Cordarone] 200 mg PO DAILY 08/22/23 [History] HYDROcodone/APAP 5-325MG [[place] 5-325] 1 tab PO Q8HR 08/22/23 [History] traZODone HCL [Desyrel] 50 mg PO HS PRN 08/22/23 [History] Follow up Appointment(s)/Referral(s): Bhupendra Tristan MD [REFERRING] - 1-2 days [facility] [NON-STAFF] - 1 Week Discharge Disposition: - Preliminary Cause of Preliminary Cause of : COPD
== END 2023-09-02 23:22 | disposition expired | DRG 291 ==
LOC: EC 23:01 → 3SCARD 08-22 01:43 → 2SICU 08-28 15:06
PROVIDERS: ADMIT Hospitalist; ATTEND Hospitalist
PROC: 5A1D70Z Performance of Urinary Filtration, Intermittent, Less than 6 Hours Per Day (ICD-10-PCS; 2023-08-22)
PROC: 0W993ZX Drainage of Right Pleural Cavity, Percutaneous Approach, Diagnostic (ICD-10-PCS; 2023-08-24)
PROC: 5A09457 Assistance with Respiratory Ventilation, 24-96 Consecutive Hours, Continuous Positive Airway Pressure (ICD-10-PCS; 2023-08-25)
PROC: 5A1955Z Respiratory Ventilation, Greater than 96 Consecutive Hours (ICD-10-PCS; principal; 2023-08-28)
PROC: 4A133B1 Monitoring of Arterial Pressure, Peripheral, Percutaneous Approach (ICD-10-PCS; 2023-08-28)
PROC: 03HY32Z Insertion of Monitoring Device into Upper Artery, Percutaneous Approach (ICD-10-PCS; 2023-08-28)
PROC: 4A133J1 Monitoring of Arterial Pulse, Peripheral, Percutaneous Approach (ICD-10-PCS; 2023-08-28)
PROC: 05H633Z Insertion of Infusion Device into Left Subclavian Vein, Percutaneous Approach (ICD-10-PCS; 2023-08-28)
PROC: 3E033XZ Introduction of Vasopressor into Peripheral Vein, Percutaneous Approach (ICD-10-PCS; 2023-08-28)
PROC: 0BH17EZ Insertion of Endotracheal Airway into Trachea, Via Natural or Artificial Opening (ICD-10-PCS; 2023-08-28)
PROC: 009U3ZX Drainage of Spinal Canal, Percutaneous Approach, Diagnostic (ICD-10-PCS; 2023-09-02)
DX: I13.2 Hypertensive heart and chronic kidney disease with heart failure and with stage 5 chronic kidney disease, or end stage renal disease (principal); A41.9 Sepsis, unspecified organism; J96.01 Acute respiratory failure with hypoxia; R65.21 Severe sepsis with septic shock; G93.41 Metabolic encephalopathy; J15.69 Pneumonia due to other Gram-negative bacteria; J15.211 Pneumonia due to Methicillin susceptible Staphylococcus aureus; N18.6 End stage renal disease; J96.02 Acute respiratory failure with hypercapnia; I50.23 Acute on chronic systolic (congestive) heart failure; G93.1 Anoxic brain damage, not elsewhere classified; N17.9 Acute kidney failure, unspecified; J91.8 Pleural effusion in other conditions classified elsewhere; E87.1 Hypo-osmolality and hyponatremia; J44.1 Chronic obstructive pulmonary disease with (acute) exacerbation; L97.229 Non-pressure chronic ulcer of left calf with unspecified severity; L97.829 Non-pressure chronic ulcer of other part of left lower leg with unspecified severity; N39.0 Urinary tract infection, site not specified; J98.11 Atelectasis; J44.0 Chronic obstructive pulmonary disease with (acute) lower respiratory infection; I27.20 Pulmonary hypertension, unspecified; E11.649 Type 2 diabetes mellitus with hypoglycemia without coma; Z66 Do not resuscitate; Z99.2 Dependence on renal dialysis; L97.529 Non-pressure chronic ulcer of other part of left foot with unspecified severity; D63.1 Anemia in chronic kidney disease; E83.9 Disorder of mineral metabolism, unspecified; I95.89 Other hypotension; E11.621 Type 2 diabetes mellitus with foot ulcer; E11.622 Type 2 diabetes mellitus with other skin ulcer; E11.22 Type 2 diabetes mellitus with diabetic chronic kidney disease; E11.42 Type 2 diabetes mellitus with diabetic polyneuropathy; I42.8 Other cardiomyopathies; Z89.611 Acquired absence of right leg above knee; I70.0 Atherosclerosis of aorta; F10.21 Alcohol dependence, in remission; Z79.4 Long term (current) use of insulin; Z91.158 Patient's noncompliance with renal dialysis for other reason; E03.9 Hypothyroidism, unspecified; E66.9 Obesity, unspecified; Z68.32 Body mass index [BMI] 32.0-32.9, adult; I08.1 Rheumatic disorders of both mitral and tricuspid valves; F32.A Depression, unspecified; B95.2 Enterococcus as the cause of diseases classified elsewhere; B96.89 Other specified bacterial agents as the cause of diseases classified elsewhere; F41.9 Anxiety disorder, unspecified; F90.9 Attention-deficit hyperactivity disorder, unspecified type; E78.5 Hyperlipidemia, unspecified; I25.10 Atherosclerotic heart disease of native coronary artery without angina pectoris; G89.29 Other chronic pain; M54.50 Low back pain, unspecified; G47.00 Insomnia, unspecified; I25.2 Old myocardial infarction; K59.00 Constipation, unspecified; G47.33 Obstructive sleep apnea (adult) (pediatric); I49.3 Ventricular premature depolarization; I87.2 Venous insufficiency (chronic) (peripheral); D50.9 Iron deficiency anemia, unspecified; K21.9 Gastro-esophageal reflux disease without esophagitis; M19.90 Unspecified osteoarthritis, unspecified site; Z91.148 Patient's other noncompliance with medication regimen for other reason; Z91.199 Patient's noncompliance with other medical treatment and regimen due to unspecified reason; Z79.82 Long term (current) use of aspirin; Z79.899 Other long term (current) drug therapy; Z87.891 Personal history of nicotine dependence; Z86.73 Personal history of transient ischemic attack (TIA), and cerebral infarction without residual deficits; Z95.810 Presence of automatic (implantable) cardiac defibrillator; Z98.1 Arthrodesis status; Z86.14 Personal history of Methicillin resistant Staphylococcus aureus infection; Z71.3 Dietary counseling and surveillance; Z88.1 Allergy status to other antibiotic agents; Z88.8 Allergy status to other drugs, medicaments and biological substances
CPT/HCPCS: 36415; 36600; 70450; 71045; 71046; 76604; 80048; 80053; 81001; 82140; 82607; 82746; 82805; 82945; 83605; 83615; 83735; 83873; 83880; 84100; 84132; 84145; 84155; 84157; 84443; 84484; 85025; 85610; 85730; 86706; 87040; 87070; 87077; 87086; 87102; 87116; 87186; 87205; 87206; 87340; 87496; 87498; 87502; 87529; 87634; 87635; 87636; 87798; 88108; 88305; 89050; 90935; 93005; 93306; 93308; 94002; 94003; 94640; 94660; 94760; 95819; 96374; 99285